=== PATIENT | female | born 2000 | race African-American/Black ===

== ENCOUNTER 2020-01-20 12:56 | Outpatient (RCR) | payer OTHER, SELFPAY ==
[2020-01-05 15:24] VITALS: BP 105/59; PULSE 110
[2020-01-05 17:23] VITALS: BP 103/63; PULSE 107
--- NOTE | 2020-01-05 18:00 | PC.NURSE ---
BPP 06/04. Dr. Elam gave order to D/C home if BPP 06/04.
--- NOTE | ~2020-01-20 | US_ITS ---
EXAMINATION: US OB BPP wo non-stress EXAM DATE: 01/05/2020 17:57 INDICATION: Nonreactive stress test. Third trimester. TECHNIQUE: Pelvic obstetrical transabdominal sonogram was performed by a technologist. There are mu ltiple grayscale and Doppler images available for interpretation. Comparison is made to prior examina tion from 09/08/2019. FINDINGS: There is a single fetus identified in vertex presentation with a heart rate of 125 beats pe r minute. The placenta is located in the anterior position. There is no sonographic evidence of retr oplacental hemorrhage identified. BIOPHYSICAL PROFILE (performed by the technologist) breathing (30 sec sustained breathing in 30 minutes): 2 out of 2 movement (3 gross body movements in 30 minutes): 2 out of 2 tone (one episode of dcdafil-yrwbrxmfj-bczusek limb movement): 2 out of 2 Amniotic fluid pocket (2 cm): 2 out of 2 Total score: 8 out of 8 IMPRESSION: 1. Single fetus with heart rate of 125 bpm. 2. Normal biophysical profile score of 8 out of 8. Reviewed, dictated and finalized at location A.
--- NOTE | ~2020-01-20 | US_ITS ---
EXAMINATION: US OB BPP wo non-stress DATE: 01/20/2020 13:48 INDICATION: Gestational diabetes, third trimester TECHNIQUE: Real-time pelvic ultrasound was performed. The interpreting radiologist was not present fo r the study. COMPARISON: 01/05/2020 FINDINGS: There is a single living fetus in vertex presentation. The placenta is anterior. heart rate is 133 beats per minute (bpm). Biophysical profile performed by the technologist: breathing (30 sec sustained breathing in 30 minutes): 2 out of 2 movement (3 gross body movements in 30 minutes): 2 out of 2 tone (one episode of ghpafqy-fhyrlcxdr-jonbolc limb movement): 2 out of 2 Amniotic fluid pocket (2 cm): 2 out of 2 Total score: 8 out of 8 IMPRESSION: 1. Single living fetus in vertex presentation. 2. Biophysical profile 8 out of 8. Reviewed, dictated and finalized at location B.
[2020-01-20 13:56] VITALS: BP 108/61; PULSE 102
== END 2020-02-04 07:39 | disposition home or self-care (01) ==
LOC: ANHOBOP 12:56
PROVIDERS: Visit Provider Obstetrics & Gynecology
DX: O24.419 Gestational diabetes mellitus in pregnancy, unspecified control (principal); Z3A.34 34 weeks gestation of pregnancy; Z3A.36 36 weeks gestation of pregnancy
CPT/HCPCS: 59025; 76819

== ENCOUNTER 2020-02-03 06:15 | Inpatient (IN) | payer OTHER, SELFPAY ==
[2020-02-03] VITALS (65 sets, daily range): BP systolic 99–121; BP diastolic 50–86; PULSE 68–104; RESP 16; TEMP 36.2–36.9; O2SAT 96–100; BMI 26.1
[2020-02-03 07:08] LABS: Basophils Absolute Auto 0.1 K/mm3 (0.0-0.1); Basophils Percent Auto 0.4 % (0.2-1.2); Eosinophils Absolute Auto 0.1 K/mm3 (0-0.3); Eosinophils Percent Auto 1.2 % (0-4.4); Hematocrit 34.3 % (37.0-47.0); Hemoglobin 11.1 g/dL (12.0-15.0); Immature Granulocyte Percent A 3.4 % (0-0.5); Lymphocytes Absolute Auto 2.12 K/mm3 (0.9-3.2); Lymphocytes Percent Auto 17.8 % (18.3-44.2); Mean Corpuscular HGB Conc 32.4 g/dl (32-36); Mean Corpuscular Hemoglobin 28.5 pg (26-34); Mean Corpuscular Volume 88.2 fl (80-100); Mean Platelet Volume 9.9 fl (7.4-10.4); Monocytes Absolute Auto 1.6 K/mm3 (0.1-0.6); Monocytes Percent Auto 13.2 % (2.6-8.5); Neutrophils Absolute Auto 7.7 K/mm3 (1.3-6.7); Platelet Count Result 264 k/mm3 (150-375); Red Blood Count 3.89 M/mm3 (4.2-5.4); Red Cell Distribution Width 13.8 % (11.5-14.5); White Blood Count 11.9 K/mm3 (4.5-10.0)
[2020-02-03 07:08] LABS: Glucose Point of Care 90 (65-105)
[2020-02-03] MEDS: LACTATED RINGERS 1,000 ML 125 ML IV CONT ×2 (07:11→11:39)
[2020-02-03] MEDS: OXYTOCIN 30 UNITS/NS 500 ML 30 UNITS/500 ML BAG 125 UNITS IV CONT ×2 (07:12→16:27)
--- NOTE | 2020-02-03 07:27 | P.HP_ITS ---
Obstetrics - Admit Note Admission Note: record reviewed. No pertinent additions to the history and/or any subsequent changes in the physical findings that are not consistent with the expected course of the were found.MIL, GDM diet controlled, cervix 2-3 outer funnels to FT, attempted but unsuccessful AROM, continue pitoc in Additions to the history and/or subsequent changes in the physical findings follow. None.
[2020-02-03] MEDS: AMPICILLIN 2 GM/NS 100 ML 2 GM/100 ML BAG IVPB (07:47)
[2020-02-03 08:02] LABS: HIV 1/2 Ab P24 Ag Result Negative (Negative)
[2020-02-03 11:27] LABS: Rapid Plasma Reagin Non-Reactive (NonReactive)
[2020-02-03] MEDS: AMPICILLIN 1 GM/NS 50 ML 1 GM/50 ML BAG IVPB (11:38)
--- NOTE | 2020-02-03 12:11 | WPDANESEPPF ---
Anes - Initial Pre Proc Eval Date/Time: 02/03/20 12:11 Surgeon: Annette Mcginnis MD Pre Op Diagnosis: Induciton of Labor Patient Data Age: 20 Gender: F Height: 5 ft 4 in Weight: 69 kg Last Vital Signs Temp 36.3 C L 02/03/20 08:00 Pulse 84 02/03/20 12:09 BP 106/62 02/03/20 12:09 Pulse Ox 98 02/03/20 12:08 Allergies Allergy/AdvReac Type Severity Reaction Status Date / Time terbutaline Allergy Rash Verified 01/25/20 15:30 Home Medications Medication Instructions Recorded Confirmed Type ferrous sulfate 325 mg (65 mg 325 mg PO DAILY #90 tablet 12/10/19 01/20/20 Rx iron) tablet,delayed release blood sugar diagnostic #100 each 12/31/19 12/31/19 Rx blood-glucose meter #1 each 12/31/19 12/31/19 Rx lancets 32 gauge #100 each 12/31/19 12/31/19 Rx pediatric puldiwvl-ytid-zgj 2 tablet PO DAILY 01/20/20 01/20/20 History [Flintstones Complete (iron)] Laboratory Tests 02/03/20 02/03/20 02/03/20 07:00 07:00 07:00 WBC 11.9 K/mm3 H K/mm3 (4.5-10.0) RBC 3.89 M/mm3 L M/mm3 (4.2-5.4) Hgb 11.1 g/dL L g/dL (12.0-15.0) Hct 34.3 % L % (37.0-47.0) MCV 88.2 fl fl (80-100) MCH 28.5 pg pg (26-34) MCHC 32.4 g/dl g/dl (32-36) RDW 13.8 % % (11.5-14.5) Plt Count 264 k/mm3 k/mm3 (150-375) MPV 9.9 fl fl (7.4-10.4) Immature Gran % (Auto) 3.4 % H % (0-0.5) Neut % (Auto) 64.0 % % (45.5-73.1) Lymph % (Auto) 17.8 % L % (18.3-44.2) [place] % (Auto) 13.2 % H % (2.6-8.5) Eos % (Auto) 1.2 % % (0-4.4) Baso % (Auto) 0.4 % % (0.2-1.2) Lymph # (Auto) 2.12 K/mm3 K/mm3 (0.9-3.2) [place] # (Auto) 1.6 K/mm3 H K/mm3 (0.1-0.6) Eos # (Auto) 0.1 K/mm3 K/mm3 (0-0.3) Baso # (Auto) 0.1 K/mm3 K/mm3 (0.0-0.1) Abs Immat Gran (auto) 0.40 K/mm3 H K/mm3 (0.00-0.031) Absolute Neuts (auto) 7.7 K/mm3 H K/mm3 (1.3-6.7) Absolute Nucleated RBC 0.0 K/mm3 K/mm3 (0.0-0.012) Nucleated RBC % 0.0 % % (0.0-0.2) POC Capillary Glucose RPR Non-reactive (NonReactive) HIV 1&2 Ab/P24 Ag 4thGn Negative (Negative) Blood Type Antibody Screen 02/03/20 02/03/20 07:00 07:03 WBC RBC Hgb Hct MCV MCH MCHC RDW Plt Count MPV Immature Gran % (Auto) Neut % (Auto) Lymph % (Auto) [place] % (Auto) Eos % (Auto) Baso % (Auto) Lymph # (Auto) [place] # (Auto) Eos # (Auto) Baso # (Auto) Abs Immat Gran (auto) Absolute Neuts (auto) Absolute Nucleated RBC Nucleated RBC % POC Capillary Glucose 90 mg/dl mg/dl (65-105) RPR HIV 1&2 Ab/P24 Ag 4thGn Blood Type B Positive Antibody Screen Negative Patient hx anesthesia problems: none Family hx anesthesia problems: none PMFSH Past Medical History Medical History Anxiety Depression Encounter for supervision of normal in multigravida in second trimester related condition in second trimester Viral meningitis Family History Family History Grandparent Diabetes mellitus Social History Social History Smoking status: Never smoker Smoking end date: 10/28/16 Alcohol intake: never Substance use: former Substance use type: marijuana Spiritual care concerns: No Anes - Eval Final PreProcedure Day of Procedure 02/03/20 12:11 Patient weight: overweight Heart: regular rate and rhythm Lungs: clear to auscultation Neurological: al
--- NOTE | 2020-02-03 12:26 | PM.OBPNVD ---
OB - PN: Subj Subjective Date/time seen: 02/03/20 12:26 OB - PN: Obj Data Labs CBC & Chem 7: 02/03/20 07:00 Labs: Laboratory Results - last 24 hr 02/03/20 02/03/20 02/03/20 07:00 07:00 07:00 WBC 11.9 H RBC 3.89 L Hgb 11.1 L Hct 34.3 L MCV 88.2 MCH 28.5 MCHC 32.4 RDW 13.8 Plt Count 264 MPV 9.9 Immature Gran % (Auto) 3.4 H Neut % (Auto) 64.0 Lymph % (Auto) 17.8 L [place] % (Auto) 13.2 H Eos % (Auto) 1.2 Baso % (Auto) 0.4 Lymph # (Auto) 2.12 [place] # (Auto) 1.6 H Eos # (Auto) 0.1 Baso # (Auto) 0.1 Abs Immat Gran (auto) 0.40 H Absolute Neuts (auto) 7.7 H Absolute Nucleated RBC 0.0 Nucleated RBC % 0.0 POC Capillary Glucose RPR Non-reactive HIV 1&2 Ab/P24 Ag 4thGn Negative Blood Type Antibody Screen 02/03/20 02/03/20 07:00 07:03 WBC RBC Hgb Hct MCV MCH MCHC RDW Plt Count MPV Immature Gran % (Auto) Neut % (Auto) Lymph % (Auto) [place] % (Auto) Eos % (Auto) Baso % (Auto) Lymph # (Auto) [place] # (Auto) Eos # (Auto) Baso # (Auto) Abs Immat Gran (auto) Absolute Neuts (auto) Absolute Nucleated RBC Nucleated RBC % POC Capillary Glucose 90 RPR HIV 1&2 Ab/P24 Ag 4thGn Blood Type B Positive Antibody Screen Negative OB - PN A/P Time Spent With Patient Time: Total time spent is greater than 50% in coordination of care (as documented) at patient's floor/unit and/or counseling patient: Exam Const: General: comfortable Resp: Effort & Inspection: normal respiratory effort : Other: SVE 4-5/70/-2 large amount of odorless fluid noted, IUPC placed Psych: Appearance: grossly normal
[2020-02-03 12:40] LABS: Glucose Point of Care 70 (65-105)
[2020-02-03] MEDS: ONDANSETRON INJ 4 MG/2 ML VIAL IV PUSH (13:00)
--- NOTE | 2020-02-03 16:01 | PM.OBPRVD ---
OB - Delivery Note Procedure Delivery date: 02/03/20 Procedure: vaginal delivery events: Gestational Diabetes Intrapartal events: None Induction method: AROM and per pitocin protocol Delivery monitor: external FHT and internal uterine Route of delivery: Laceration description: Perineal - 1st Degree Delivery repair: vicryl Specimen: Yes Estimated blood loss (mL): 115 Anesthesia type: Epidural Disposition: other () Baby Date of : 02/03/20 Time of : 15:50 Weeks of gestation at delivery: 39 gender: Female Weight (pounds): 7 Weight (ounces): 3 presentation: vertex position: Left Occiput Anterior Placenta delivery description: Spontaneous cord vessel description: 3 Vessels, Nuchal Cord and Clamped/Cut score one minute: 9 score five minutes: 9
[2020-02-03] MEDS: IBUPROFEN 600 MG TABLET PO (17:54)
[2020-02-03] MEDS: WITCH HAZEL 40 PADS 1 PAD TOPICAL (18:19)
[2020-02-03] MEDS: BENZOCAINE 20% AER SPR (*SP) 56 GM CAN 1 SPRAY TOPICAL (18:20)
[2020-02-03 22:44] LABS: Glucose Point of Care 105 (65-105)
--- NOTE | 2020-02-04 03:11 | OBPPTRN ---
Addendum entered by Judit Miranda RN 02/04/20 03:12: Pt transferred to 02/03/20 at 1845. Original Note: Patient transferred to post room #290 via wheelchair. Support person (Pt's mom), went home for the evening to take care of patient's 2 year old child. Oriented to unit, room, information board, rooming in, admission packet and security measures. Patient verbalizes understanding. with patient.
[2020-02-04] MEDS: IBUPROFEN 600 MG TABLET PO ×2 (04:25→12:08)
[2020-02-04 05:33] LABS: Amphetamine Screen Urine Negative (Negative); Barbiturate Screen Urine Negative (Negative); Benzodiazepines Screen Urine Negative (Negative); Cannabinoid Screen Urine Negative (Negative); Cocaine Screen Urine Negative (Negative); Methadone Screen Urine Negative (Negative); Opiate Screen Urine Negative (Negative); Phencyclidine Screen Urine Negative (Negative)
[2020-02-04 05:43] LABS: Hematocrit 32.7 % (37.0-47.0); Hemoglobin 10.4 g/dL (12.0-15.0)
--- NOTE | 2020-02-04 07:36 | P.PNOB_ITS ---
OB - PN: Subj Subjective Date/time seen: 02/04/20 07:36 Patient comments: no complaints, pain well controlled and other (Lochia similar to menses) [place] baby status: doing well OB - PN: Obj Data Labs CBC & Chem 7: 02/04/20 04:28 Labs: Laboratory Results - last 24 hr 02/03/20 02/03/20 02/03/20 07:00 07:00 07:00 Hgb Hct POC Capillary Glucose Urine Opiates Screen Urine Methadone Screen Ur Barbiturates Screen Ur Phencyclidine Scrn Ur Amphetamine Screen U Benzodiazepines Scrn Urine Cocaine Screen U Cannabinoids Screen RPR Non-reactive HIV 1&2 Ab/P24 Ag 4thGn Negative Blood Type B Positive Antibody Screen Negative 02/03/20 02/03/20 02/04/20 11:47 22:41 04:28 Hgb 10.4 L Hct 32.7 L POC Capillary Glucose 70 105 Urine Opiates Screen Urine Methadone Screen Ur Barbiturates Screen Ur Phencyclidine Scrn Ur Amphetamine Screen U Benzodiazepines Scrn Urine Cocaine Screen U Cannabinoids Screen RPR HIV 1&2 Ab/P24 Ag 4thGn Blood Type Antibody Screen 02/04/20 05:11 Hgb Hct POC Capillary Glucose Urine Opiates Screen Negative Urine Methadone Screen Negative Ur Barbiturates Screen Negative Ur Phencyclidine Scrn Negative Ur Amphetamine Screen Negative U Benzodiazepines Scrn Negative Urine Cocaine Screen Negative U Cannabinoids Screen Negative RPR HIV 1&2 Ab/P24 Ag 4thGn Blood Type Antibody Screen OB - PN A/P Plan day: 1 (s/p vaginal delivery, doing well) Plan: routine care and discharge home (Follow up in 4 weeks) Time Spent With Patient Time: Total time spent is greater than 50% in coordination of care (as documented) at patient's floor/unit and/or counseling patient: Exam Const: General: no acute distress GI: Inspection: other (Fundus firm and nontender at umbilicus) GI Palp: Yes Soft to palpation and No Tenderness to palpation present (GI) Extrem: General: no edema
[2020-02-04 08:00] VITALS: BP 100/60; PULSE 61; RESP 18; TEMP 36.9
--- NOTE | 2020-02-06 13:53 | PM.OBDSVD ---
OB - DS: Summary OB Procedures : None OB Procedures Intrapartum: Spontaneous Vag Delivery OB Procedures: : None Time Spent with Patient Time attestation: Total time spent providing and/or coordinating discharge services: DS: Data Data Completed and Pending Pending studies at discharge: Pending at discharge 02/03/20 16:37 Surgical [PTH] Routine Discharge Plan Discharge Consulting providers: Anju Mcnamara ; Marcus Saleh Discharging Clinician: Ashlie Coronado Patient Disposition: Home, Self-Care Activity: may shower, may drive after 2 weeks, pelvic rest and other - see discharge instructions Diet: regular Discharge Instructions: Education: Mom and Baby Guide Given to: Mother Follow-Up: Call your delivering provider's office for an appointment to be seen in: Call your physician to schedule a follow up appointment Mom and baby should come to the [facility] for the follow-up appointment. Appointment Date/Time: February 05, 2020 at 10:00 am What to expect at your follow-up visit: Blood Pressure Check and Physical Assessment Call [phone] if you are unable to keep your appointment time. BREAST CARE: 1. Wear a snug supportive bra. 2. For engorgement discomfort: Bottle Feeding: A. May apply ice packs EPISIOTOMY/PERINEAL CARE: 1. Until bleeding stops, use your deisy bottle after urinating 2. Change your pad frequently throughout the day 3. You may take sitz baths several times a day (fill your bathtub with warm water and soak for 20 minutes.) Do NOT bathe in the water 4. No tub baths until seen by your physician - You may shower ACTIVITY: 1. Rest as much as possible. 2. Do not exercise or lift anything heavier than your baby (such as laundry or other children.) 3. Avoid stairs or driving as much as possible. 4. Do not put anything into the vagina. No douching, tampons, or sexual activity until seen by physician. NOTIFY PHYSICIAN IF YOU HAVE ANY QUESTIONS OR IF ANY OF THE FOLLOWING SYMPTOMS OCCUR: 1. If your episiotomy becomes red, swollen, or more painful than what you have experienced in the hospital. 2. If your vaginal bleeding becomes foul smelling. 3. If your vaginal bleeding becomes more heavy than a period or if your bleeding changes from pink to bright red. However, you may pass an occasional walnut-sized clot once or twice for the first week . 4. If you experience a sharp, shooting pain in you calves. 5. If you discover a hard, reddened area on your breast or if you experience flu-like symptoms. DIET: 1. Eat regular, well-balanced meals. 2. Drink plenty of fluids daily. Patient Instructions: Antibiotic Form Stand Alone Forms: General Discharge Information Follow-up/Referrals: Ashlie Coronado MD [Physician] - 6 Weeks Discharge Medications: New ibuprofen 600 mg Tablet 600 mg PO Q6H PRN (Reason: Cramping) Qty: 60 RF: 0 escitalopram oxalate [Lexapro] 10 mg Tablet 10 mg PO DAILY Qty: 30 RF: 0 Continued ferrous sulfate 325 mg (65 mg iron) tablet,delayed release (DR/EC) 325 mg PO DAILY Qty: 90 RF: 0 Flintstones Complete (iron) Tablet,Chewable 2 tablet PO DAILY RF: 0 No Action (DME) blood-glucose meter Kit See Rx Instructions .ROUTE .MEDSUPPLY Qty: 1 RF: 0 (DME) blood sugar diagnostic [Blood Glucose Test] Strip See Rx Instructions .ROUTE .MEDSUPPLY Qty: 100 RF: 0 (DME) lancets 32 gauge misc See Rx Instructions .ROUTE .MEDSUPPLY Qty: 100 RF: 0 Date of admission: 02/03/20 06:15 Primary Care Provider: UNKNOWN,DOCTOR Admitting Provider: Annette Mcginnis Discharge Date/Time: 02/04/20 17:00 Attending physician on admission: Ashlie Coronado
== END 2020-02-04 17:00 | disposition home or self-care (01) | DRG 560 ==
LOC: ANHLDR 06:47 → ANHOB2 02-04 13:10 → ANHLDR 02-05 13:08 → ANHOB2 02-05 13:08
PROVIDERS: Advanced Practice Midwife; Admitting Provider Obstetrics & Gynecology; Visit Provider Obstetrics & Gynecology
DX: O24.420 Gestational diabetes mellitus in childbirth, diet controlled (principal); Z37.0 Single live birth; Z3A.39 39 weeks gestation of pregnancy; O99.824 Streptococcus B carrier state complicating childbirth; O99.344 Other mental disorders complicating childbirth; F41.8 Other specified anxiety disorders; O70.0 First degree perineal laceration during delivery
CPT/HCPCS: 36415; 80307; 85014; 85018; 85025; 86592; 86703; 86850; 86900; 86901; 88307; A9270; G0432; J0290; J2405; J2590; J2795; J3010; J7120

== ENCOUNTER 2020-05-07 15:11 | Emergency (ER) | payer OTHER, SELFPAY ==
--- NOTE | 2020-05-07 16:08 | PC.NURSE ---
Patient called for Triage at this time. No answer. Patient not in waiting room.
--- NOTE | 2020-05-07 16:30 | PC.NURSE ---
Called patient for triage, no answer. Patient not in the ED waiting room.
--- NOTE | 2020-05-07 17:25 | PC.NURSE ---
Third call for triage. No answer. Patient is not in the ED waiting room.
== END 2020-05-07 17:25 | disposition left against medical advice (07) ==
LOC: ANHED 17:34
DX: Z53.21 Procedure and treatment not carried out due to patient leaving prior to being seen by health care provider (principal)
CPT/HCPCS: 99199

== ENCOUNTER 2020-09-17 22:47 | Emergency (ER) | payer OTHER, SELFPAY ==
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
[2020-09-17 23:00] VITALS: BP 120/89; PULSE 110; RESP 22; TEMP 36.6; O2SAT 95
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
[2020-09-18] MEDS: HYDROcodone/acetaminophen (*CRX) 5-325 MG TABLET 1 TAB PO (00:06)
[2020-09-18 03:29] VITALS: BP 120/82; PULSE 92; RESP 18; O2SAT 100
== END 2020-09-18 03:31 | disposition home or self-care (01) ==
PROVIDERS: Emergency Provider Emergency Medicine
DX: S90.01XA Contusion of right ankle, initial encounter (principal); V43.62XA Car passenger injured in collision with other type car in traffic accident, initial encounter
CPT/HCPCS: 29515; 73562; 73600; 73700; 99284; A9270

== ENCOUNTER 2021-02-04 17:50 | Emergency (ER) | payer OTHER, SELFPAY ==
--- NOTE | 2021-02-04 18:46 | PC.NURSE ---
Call in waiting room, no answer.
[2021-02-04 18:49] VITALS: BP 119/73; PULSE 74; RESP 18; TEMP 36.4; O2SAT 99
[2021-02-04 19:10] VITALS: BP 117/76; PULSE 80; RESP 18; TEMP 37.1; O2SAT 100
[2021-02-04 19:16] LABS: Add Urine Microscopic? YES; Appearance Urine Cloudy (Clear); Bilirubin Urine Negative (Negative); Blood Urine Negative (Negative); Color Urine Yellow (Yellow); Glucose Urine UA Negative (Negative); Ketones Urine Negative (Negative); Leukocyte Esterase Ur Negative LEU/UL (Negative); Mucus Urine Rare /lpf; Nitrate Urine Negative (Negative); Protein Urine 1+ mg/dL (Negative); RBC Urine 0-2 /hpf (0-2); Specific Grav Ur 1.027 (1.001-1.035); Squamous Epithelial Cell Urine Few /hpf (Few); Urobilinogen Urine Negative mg/dL (<2.0); WBC Urine 0-3 /hpf
--- NOTE | 2021-02-04 19:44 | ED.GENADULT ---
HPI - General Adult General Chief complaint: Urogenital-Female Stated complaint: vagina problems Time Seen by Provider: 02/04/21 19:07 History of Present Illness HPI narrative: Patient is a 21-year-old female who comes to the ED today with concerns for vaginal discharge and lower abdominal pain. Patient reports that the symptoms initially started about 2 weeks ago but is been worsening over the last 1 week. Denies any urinary symptoms. Says the discharge is a fishy odor. Admits to nausea without any vomiting. Otherwise denies any fevers or any other symptoms or concerns. No previous history of similar symptoms. No known STD exposure but says it is possible. Last menstrual period was January 04. Related Data Home Medications Medication Instructions Recorded Confirmed [facility] [employer] [facility] 02/04/21 Allergies Allergy/AdvReac Type Severity Reaction Status Date / Time terbutaline Allergy Rash Verified 02/04/21 19:18 Review of Systems Constitutional: Constitutional: Reports as per HPI, Denies fever(s), Denies night sweats and Denies weakness Cardiovascular: Cardiovascular: Denies chest pain, Denies edema, Denies leg edema, Denies dyspnea and Denies orthopnea Respiratory: Respiratory: Denies cough and Denies dyspnea Gastrointestinal: Gastrointestinal: Reports as per HPI, Reports abdominal pain, Denies constipation, Denies diarrhea, Reports nausea and Denies vomiting Genitourinary: Genitourinary: Reports as per HPI Musculoskeletal: Musculoskeletal: Denies abnormal gait, Denies back pain, Denies numbness and Denies tingling Neurologic: Denies Abnormal speech present, Denies abnormal gait, Denies numbness, Denies tingling and Denies weakness Psychiatric: Psychiatric: Denies homicidal ideation and Denies suicidal ideation [facility] Past Medical History Medical History (Updated 02/04/21 @ 21:18 by Dimitri Peguero PA-C) Anxiety Depression Encounter for supervision of normal in multigravida in second trimester related condition in second trimester Viral meningitis Family History Family History Grandparent Diabetes mellitus Social History Social History Smoking status: Never smoker Smoking end date: 10/28/16 Alcohol intake: never Substance use: former Substance use type: marijuana Gender identity (if verbalized by the patient): Female Spiritual care concerns: No Exam Const: General: cooperative, healthy appearing, comfortable, no acute distress, well developed, alert, awake and Physically active Orientation/consciousness: patient oriented x3 Other: Pleasant, well-appearing HENMT: Head: normal to inspection, normocephalic and atraumatic Ears: external ears normal General nose exam: Normal external nose present Eyes: Pupils: Equal, round and reactive pupils present EOM: EOMs intact bilaterally Neck: Neck: normal visual inspection Chest: Chest palpation & inspection: normal inspection of the chest and no tenderness Resp: Effort & Inspection: normal respiratory effort and able to speak in complete sentences Auscultation: clear to auscultation bilaterally Cardio: Rate: regular rate Rhythm: regular rhythm GI: Inspection: normal to inspection GI Palp: Yes abdominal tenderness (Tender to palpation over suprapubic and left lower quadrant) Other: Normal external vagina. Cervix is friable with thick purulent discharge. Mild cervical motion tenderness, left-sided adnexal tenderness no right adnexal tenderness. Chaperoned by medic. : General: Yes no CVA tenderness External Female Exam: normal external appearance Speculum Exam - Cervix: Abnormal cervical discharge present and Other cervical findings present (Cervix is friable. Thick purulent discharge.) Back/Spine/Pelvis: Back: no CVA tenderness Skin: General skin exam: normal color and no rashes or lesions not
--- NOTE | 2021-02-04 20:00 | PC.NURSE ---
Patient tells this RN that she needs to leave the ED to draft roller picker her child. She was notified that she has not been discharged and is still waiting for results of her tests. Patient reports that she understands this and tells me that she is leaving at this time. EDPA notified that this patient left the ED AMA.
== END 2021-02-04 20:00 | disposition left against medical advice (07) ==
PROVIDERS: Emergency Medicine; Physician Assistant Medical; Emergency Provider Emergency Medicine
DX: N73.0 Acute parametritis and pelvic cellulitis (principal); A59.00 Urogenital trichomoniasis, unspecified
CPT/HCPCS: 81001; 81025; 87070; 87491; 87591; 87808; 99284

== ENCOUNTER 2021-02-14 13:17 | Emergency (ER) | payer OTHER, SELFPAY ==
--- NOTE | 2021-02-14 13:38 | ED.EAR ---
HPI - Ear Problem General Chief complaint: Ear Stated complaint: left ear pain Time Seen by Provider: 02/14/21 13:56 Source: patient and RN notes reviewed Mode of arrival: ambulatory Limitations: no limitations History of Present Illness HPI Narrative: 21-year-old female presents concern for left ear pain and yellow discharge that started yesterday. She denies rhinorrhea, nasal congestion, sore throat, fever, headache, cough, shortness of breath. Reports she was seen in the emergency room 10 days ago and tested positive for an STD, however she left left ER AGAINST MEDICAL ADVICE before being discharged because she had to get her kids and did not receive her treatment for the STD. Complaint: ear pain Related Data Allergies Allergy/AdvReac Type Severity Reaction Status Date / Time terbutaline Allergy Rash Verified 02/14/21 13:43 Review of Systems Review of Systems: Narrative: CONSTITUTIONAL: Denies malaise, chills, sweats, or fever. EYES: Denies visual changes, redness, or discharge. ENT: Denies rhinorrhea, congestion, sinus pain, and sore throat. Reports left ear pain, drainage CARDIOVASCULAR: Denies chest pain, palpitations, or edema. RESPIRATORY: Denies cough or dyspnea. GASTROINTESTINAL: Denies abdominal pain, nausea, vomiting, diarrhea SKIN: Denies rash or itching. MUSCULOSKELETAL: Denies myalgia. NEUROLOGIC: Denies headache. All systems reviewed & are unremarkable except as noted in HPI and below PMFSH Past Medical History Medical History (Updated 02/14/21 @ 14:11 by Jazmine Samano NP) Anxiety Depression Encounter for supervision of normal in multigravida in second trimester related condition in second trimester Viral meningitis Family History Family History Grandparent Diabetes mellitus Social History Social History Smoking status: Never smoker Smoking end date: 10/28/16 Alcohol intake: never Substance use: former Substance use type: marijuana Gender identity (if verbalized by the patient): Female Spiritual care concerns: No Comments At time of signature, agree with nursing past medical, surgical, social and family history. There is no relevant family history pertinent to the presenting complaint Exam Narrative: Exam Narrative: GENERAL: Well-appearing, well-nourished, and in no acute distress. HEAD: Normocephalic EYES: PERRLA, conjunctivae clear ENT: Nares clear, turbinates pink, no discharge. Mucous membranes moist. Right TM pearly davis with dull light reflex, left TM erythematous and bulging; no tragal tenderness. Oropharynx not erythematous without lesions. Tonsils not enlarged and without exudate, no drooling, no hoarseness, no trismus, uvula midline. NECK: Supple. No lymphadenopathy CHEST: Clear to auscultation, breath sounds equal. No wheezing, rhonchi, rales, or stridor. No respiratory distress, speaks in full sentences. HEART: Regular rate and rhythm. No murmur heard. SKIN: Warm, dry, no rash. NEURO: Alert and oriented x3. PSYCH: Normal mood and affect Course Course Emergency Course: Patient is aware of diagnosis, understands and agrees to treatment plan. Anticipatory guidance given. Patient agrees to follow-up as directed and is aware of reasons to seek care at the emergency department. Portions of this record may have been created with voice recognition software Vital Signs Vital signs: Vital Signs Temperature 96.8 F L 02/14/21 13:40 Pulse Rate 84 02/14/21 13:40 Respiratory Rate 16 02/14/21 13:40 Blood Pressure 103/86 02/14/21 13:40 Pulse Oximetry 99 02/14/21 13:40 Temperature 96.8 F L 02/14/21 13:40 Pulse Rate 84 02/14/21 13:40 Respiratory Rate 16 02/14/21 13:40 Blood Pressure 103/86 02/14/21 13:40 Pulse Oximetry 99 02/14/21 13:40 Reviewed. Medical Decision Making MDM Narrative Medical decision nicolas
[2021-02-14 13:40] VITALS: BP 103/86; PULSE 84; RESP 16; TEMP 36; O2SAT 99
== END 2021-02-14 14:13 | disposition home or self-care (01) ==
PROVIDERS: Emergency Provider Nurse Practitioner; PCP Nurse Practitioner Family
DX: H66.002 Acute suppurative otitis media without spontaneous rupture of ear drum, left ear (principal); A59.9 Trichomoniasis, unspecified
CPT/HCPCS: 99213; G0463

== ENCOUNTER 2021-03-18 21:46 | Emergency (ER) | payer OTHER, SELFPAY ==
[2021-03-18 22:03] VITALS: BP 100/79; PULSE 79; RESP 16; TEMP 36.1; O2SAT 95
--- NOTE | 2021-03-18 23:34 | ED.URI ---
HPI - URI/Sore Throat General Chief Complaint: Upper Respiratory Infection Stated Complaint: ST, congestion Time Seen by Provider: 03/18/21 22:28 History of Present Illness HPI Narrative: Patient is a 21-year-old female who presents ER with cough for 2 days. Associate with sinus congestion and some ear pressure. Reports sick contacts but unsure if they have Covid. Reports she needs Covid test because her mother has cancer and she has not been vaccinated (patient). No chest pain or chest pressure. Mild difficulty swallowing due to sore throat but no actual dysphagia. Related Data Allergies Allergy/AdvReac Type Severity Reaction Status Date / Time terbutaline Allergy Rash Verified 02/14/21 13:43 Review of Systems Constitutional: Constitutional: Denies chills, Denies fever(s) and Denies weakness ENT: Denies dysphagia, Reports nasal congestion and Reports sore throat Cardiovascular: Cardiovascular: Denies chest pain and Denies radiating jaw, neck or arm pain Respiratory: Respiratory: Reports cough, Denies dyspnea and Denies wheezing Gastrointestinal: Gastrointestinal: Denies nausea and Denies vomiting PMFSH Past Medical History Medical History (Updated 03/18/21 @ 23:37 by Arsalan Garay MD) Anxiety Depression Encounter for supervision of normal in multigravida in second trimester related condition in second trimester Viral meningitis Family History Family History Grandparent Diabetes mellitus Social History Social History Smoking status: Never smoker Smoking end date: 10/28/16 Alcohol intake: never Substance use: former Substance use type: marijuana Gender identity (if verbalized by the patient): Female Spiritual care concerns: No Exam Narrative: Exam Narrative: GENERAL: Well-appearing, well-nourished, and in no acute distress. HEAD: Normocephalic, atraumatic. ENT: Mucous membranes moist. TMs normal bilaterally. NECK: Supple. CHEST: Clear to auscultation. No respiratory distress. HEART: Regular rate and rhythm. Normal peripheral pulses. EXTREMITIES: Normal range of motion. No edema. NEURO: Alert and oriented x3. PSYCH: Normal mood and affect. Course Course Emergency Course: Patient swabbed for Covid. Discussed isolation. Patient verbalized understanding. Encourage patient to go get a Covid vaccine since she is eligible and they are free of [employer]. Vital Signs Vital signs: Vital Signs Temperature 97.0 F L 03/18/21 22:03 Pulse Rate 79 03/18/21 22:03 Respiratory Rate 16 03/18/21 22:03 Blood Pressure 100/79 03/18/21 22:03 Pulse Oximetry 95 03/18/21 22:03 Temperature 97.0 F L 03/18/21 22:03 Pulse Rate 79 03/18/21 22:03 Respiratory Rate 16 03/18/21 22:03 Blood Pressure 100/79 03/18/21 22:03 Pulse Oximetry 95 03/18/21 22:03 Discharge Plan Discharge Clinical Impression: Person under investigation for COVID-19 Patient Disposition: Home, Self-Care Condition: Stable Instructions: COVID-19 (Coronavirus Disease 2019) (ED) Additional Instructions: Self isolate until you receive a negative Covid results or you are cleared by the health department. Return the ER if you cannot breathe, you cannot keep down food or water, or you have additional concerns. Prescriptions: No Action metronidazole [Flagyl] 500 mg tablet 2,000 mg PO ONCE Qty: 4 RF: 0 cefdinir 300 mg capsule 300 mg PO Q12H 10 Days Qty: 20 RF: 0 fluticasone propionate [Flonase Allergy Relief] 50 mcg/actuation spray,suspension 2 spray NASAL DAILY 14 Days Qty: 15.8 RF: 0 metronidazole [Flagyl] 500 mg tablet 500 mg PO ONCE Qty: 1 RF: 0 Follow-up/Referrals: Panchito,EVERETT Cote [Primary Care Provider] - 1 Week
[2021-03-19 00:04] VITALS: BP 111/68; PULSE 68; RESP 18; O2SAT 99
[2021-03-21 13:08] LABS: SARS-CoV-2 RNA PCR Negative
== END 2021-03-19 00:04 | disposition home or self-care (01) ==
PROVIDERS: Emergency Provider Emergency Medicine; PCP Nurse Practitioner Family
DX: R05 Cough (principal); Z20.822 Contact with and (suspected) exposure to COVID-19
CPT/HCPCS: 99283; C9803; U0003; U0005

== ENCOUNTER 2021-06-02 07:19 | Emergency (ER) | payer OTHER, SELFPAY ==
[2021-06-02 07:42] VITALS: BP 99/73; PULSE 64; RESP 14; TEMP 37.1; O2SAT 99
--- NOTE | 2021-06-02 08:26 | ED.DENTAL ---
HPI - Dental/Oral General Chief complaint: Dental/Oral Stated complaint: cold symptoms Time Seen by Provider: 06/02/21 07:29 Source: RN notes reviewed History of Present Illness HPI Narrative: Patient presents emergency department from home for dental pain. Patient states for the past 2 days she had increasing pain in her right lower wisdom teeth region. States her wisdom teeth are coming through and they've been increasingly painful states she has been taking Tylenol at home intermittently for the pain with minimal relief she states that it time she does taste blood in her mouth she denies any swelling of the face she states she has not seen a dentist for the same she denies any fevers or chills Related Data Allergies Allergy/AdvReac Type Severity Reaction Status Date / Time terbutaline Allergy Rash Verified 02/14/21 13:43 Review of Systems Review of Systems: Gen.: Denies fevers or chills HEENT: See HPI Respiratory: Denies shortness of breath Neuro: Denies numbness, tingling, weakness Skin: Denies rash Endo: Denies DM PMFSH Past Medical History Medical History (Updated 06/02/21 @ 08:33 by Naldo Quigley DO) Anxiety Depression Encounter for supervision of normal in multigravida in second trimester related condition in second trimester Viral meningitis Family History Family History Grandparent Diabetes mellitus Social History Social History Smoking status: Never smoker Smoking end date: 10/28/16 Alcohol intake: never Substance use: former Substance use type: marijuana Gender identity (if verbalized by the patient): Female Spiritual care concerns: No Exam Narrative: APPEARANCE: No acute distress, nontoxic, resting in bed HEENT: Normocephalic, atraumatic, TMs clear bilaterally, nares patent, oral mucosa moist, airway patent, tooth #32 is starting to come through the gumline with some erythema of the gum there is no swelling on the outside of the jaw in this region RESPIRATORY: No respiratory distress MUSCULOSKELETAl: Moves all extremities. NEURO: Awake and alert. Following commands, speech normal, no focal deficits SKIN:: Warm, dry. Normal Color PSYCHIATRIC: Normal affect/mood Course Course Emergency Course: Discussed with patient results of workup and diagnosis. Discussed need for follow-up with primary care, proper use of medication, and reasons to return to the emergency department. Patient understands and agrees to current treatment plan Vital Signs Vital signs: Vital Signs Temperature 98.7 F 06/02/21 07:42 Pulse Rate 64 06/02/21 07:42 Respiratory Rate 14 06/02/21 07:42 Blood Pressure 99/73 L 06/02/21 07:42 Pulse Oximetry 99 06/02/21 07:42 Temperature 98.7 F 06/02/21 07:42 Pulse Rate 64 06/02/21 07:42 Respiratory Rate 14 06/02/21 07:42 Blood Pressure 99/73 L 06/02/21 07:42 Pulse Oximetry 99 06/02/21 07:42 MDM - Dental/Oral Lab Data Labs: UCG Bedside Result Negative Reference Range: Negative Discharge Plan Discharge Clinical Impression: Odontalgia Patient Disposition: Home, Self-Care Condition: Stable Instructions: Antibiotic Form, Toothache (ED) Additional Instructions: Return for increasing pain fever or any other symptoms of concern Prescriptions: New penicillin V potassium 500 mg tablet 500 mg PO TID Qty: 30 RF: 0 ibuprofen [IBU] 600 mg tablet 600 mg PO Q6H PRN (Reason: pain) Qty: 20 RF: 0 No Action metronidazole [Flagyl] 500 mg tablet 2,000 mg PO ONCE Qty: 4 RF: 0 cefdinir 300 mg capsule 300 mg PO Q12H 10 Days Qty: 20 RF: 0 fluticasone propionate [Flonase Allergy Relief] 50 mcg/actuation spray,suspension 2 spray NASAL DAILY 14 Days Qty: 15.8 RF: 0 metronidazole [Flagyl] 500 mg tablet
[2021-06-02] MEDS: HYDROcodone/acetaminophen (*CRX) 5-325 MG TABLET 1 TAB PO (08:50)
[2021-06-02] MEDS: PENICILLIN V POTASSIUM 250 MG TABLET 500 MG PO (08:51)
[2021-06-02 09:11] VITALS: PULSE 70; RESP 12; O2SAT 99
== END 2021-06-02 09:12 | disposition home or self-care (01) ==
PROVIDERS: Emergency Provider Emergency Medicine; PCP Nurse Practitioner Family
DX: K08.89 Other specified disorders of teeth and supporting structures (principal)
CPT/HCPCS: 81025; 99283; A9270

== ENCOUNTER 2021-06-09 16:20 | Emergency (ER) | payer OTHER, SELFPAY ==
--- NOTE | 2021-06-09 16:29 | ED.DENTAL ---
HPI - Dental/Oral General Chief complaint: Dental/Oral Stated complaint: tooth ache Time Seen by Provider: 06/09/21 16:29 Source: patient Mode of arrival: ambulatory Limitations: no limitations History of Present Illness HPI Narrative: 21-year-old female presents to the [facility] with complaints of dental pain. Was seen on the sixth in the ER for same complaint. Was prescribed ibuprofen and penicillin. Patient states that her penicillin went down the drain. Was unable to finish. Had not made appointment for follow-up. Related Data Allergies Allergy/AdvReac Type Severity Reaction Status Date / Time terbutaline Allergy Rash Verified 06/09/21 16:27 Review of Systems Review of Systems: All systems reviewed & are unremarkable except as noted in HPI and below Constitutional: Constitutional: Reports no additional constitutional complaints, Denies chills and Denies fever(s) Eyes: Eyes: Reports no additional eye complaints ENT: Reports as per HPI Comments: Right lower dental Cardiovascular: Cardiovascular: Reports no additional cardiovascular complaints and Denies chest pain Respiratory: Respiratory: Reports no additional respiratory complaints, Denies cough and Denies dyspnea Gastrointestinal: Gastrointestinal: Reports no additional gastrointestinal complaints Genitourinary: Genitourinary: Reports no additional female genitourinary complaints Musculoskeletal: Musculoskeletal: Reports no additional musculoskeletal complaints Integumentary/Breasts: Skin/Breast: Reports system reviewed and no additional complaints, except as docu Neurologic: Reports system reviewed and no additional complaints, except as documented Psychiatric: Psychiatric: Reports no additional psychiatric complaints Allergic/Immunologic: Allergic/Immunologic: Reports no additional allergic/immunologic complaints [facility] Past Medical History Medical History (Updated 06/09/21 @ 16:38 by Jazmine Zepeda) Anxiety Depression Encounter for supervision of normal in multigravida in second trimester related condition in second trimester Viral meningitis Family History Family History Grandparent Diabetes mellitus Social History Social History Smoking status: Never smoker Smoking end date: 10/28/16 Alcohol intake: never Substance use: former Substance use type: marijuana Gender identity (if verbalized by the patient): Female Spiritual care concerns: No Comments At the time of my signature, I reviewed and agree with the nursing past medical, surgical, social, and family history. There is no relevant family history pertinent to the patient complaint. Exam Const: General: healthy appearing, no acute distress and alert Nutritional Appearance: well nourished Orientation/consciousness: patient oriented x3 Limitations: no limitations HENMT: Head: normal to inspection Teeth image: 1. redness and swelling to the wisdom tooth with a small puss pocket Eyes: Conjunctivae: conjunctivae normal Pupils: Equal, round and reactive pupils present Neck: Neck: normal visual inspection, no lymphadenopathy and no meningeal signs Chest: Chest palpation & inspection: normal inspection of the chest Resp: Effort & Inspection: normal respiratory effort Auscultation: clear to auscultation bilaterally Cardio: Rate: regular rate Rhythm: regular rhythm GI: GI Palp: Yes Soft to palpation and No Tenderness to palpation present (GI) : General: Yes no CVA tenderness Back/Spine/Pelvis: Back: no CVA tenderness Skin: General skin exam: normal color Rashes: no rashes Wounds: no wounds Neuro: General: patient oriented x3, moves all extremities, no meningeal signs and no focal motor deficits Speech: normal speech Gait exam (Neuro): Normal gait present Extrem: General: normal to inspection and no pedal edema Psych: Appearan
[2021-06-09 16:31] VITALS: BP 101/64; PULSE 86; RESP 16; TEMP 37.2; O2SAT 99
== END 2021-06-09 16:42 | disposition home or self-care (01) ==
PROVIDERS: Emergency Provider Nurse Practitioner; PCP Nurse Practitioner Family
DX: K04.7 Periapical abscess without sinus (principal)
CPT/HCPCS: 99213; G0463

== ENCOUNTER 2021-07-09 11:07 | Emergency (ER) | payer OTHER, SELFPAY ==
--- NOTE | ~2021-07-09 | US_ITS ---
EXAMINATION: US OB <=14 wk fetus w TV EXAM DATE: 07/09/2021 12:42 INDICATION: Abdominal Pain Pos Preg Ab Pain, + Preg 1st trimester. TECHNIQUE: Pelvic obstetrical transabdominal sonogram was performed by a technologist. There are mu ltiple grayscale and Doppler images available for interpretation. There are no earlier studies of th is gestation for comparison. FINDINGS: Uterus measures 8.6 x 4.5 x 4.7 cm, with thickened endometrium at 28 mm, could be decidual reaction given positive test. No intrauterine or extrauterine identified at this timeThere is small free pelvic fluid. Right adnexa: The ovary is not identified. There is no adnexal mass. Left adnexa: The ovary measures 3.3 x 2.7 x 2.1 cm, may have the corpus luteal cyst measuring 2 cm. O varian vascular flow confirmed. Early intrauterine or recent spontaneous are common causes of elevated beta hCG in absence of intrauterine confirmation. Ultrasound can sometimes identify, but never exclud e an ectopic in the setting of positive beta hCG. IMPRESSION: Thickened endometrium without intrauterine or extrauterine identified. Follow up as warranted clinically with serial beta hCG levels or ultrasound. Reviewed, dictated and finalized at location A. IMPRESSION: Thickened endometrium without intrauterine or extrauterine pregnanc y identified. Follow up as warranted clinically with serial beta hCG levels or ultrasound.
[2021-07-09 11:11] VITALS: BP 100/50; PULSE 105; RESP 20; TEMP 36.8; O2SAT 98
--- NOTE | 2021-07-09 12:20 | ED.GENADULT ---
HPI - General Adult General Chief complaint: Unspecified Stated complaint: TRICH, ABD PAIN, PREG Time Seen by Provider: 07/09/21 11:32 Source: patient Mode of arrival: ambulatory Limitations: no limitations History of Present Illness HPI narrative: Patient presents with chief complaint of abdominal pain and cramping. Patient states that she started metronidazole for trichomonas on . Patient states today she had a positive test. Patient states she has 2 children at home and was wanting to begin the Depo-Provera shots. Patient states that she is not sure if her abdominal cramping is related to the metronidazole or something else. Patient reports feeling some nausea. She has not had vomiting. Patient states she does not know when her last menstrual period was. She states she had some bleeding 2 to 3 weeks ago but it was not consistent with her menstrual cycles. Related Data Allergies Allergy/AdvReac Type Severity Reaction Status Date / Time terbutaline Allergy Rash Verified 06/09/21 16:27 Review of Systems Review of Systems: CONSTITUTIONAL: Denies fever, chills, or sweats. EYES: Denies visual changes, redness, or discharge. ENT: Denies rhinorrhea, congestion, sore throat, or otalgia. CARDIOVASCULAR: Denies chest pain, palpitations, or edema. RESPIRATORY: Denies cough or dyspnea. GASTROINTESTINAL: Reports abdominal pain, nausea, denies vomiting, or diarrhea. GENITOURINARY: Denies dysuria or hematuria. SKIN: Denies rash or itching. MUSCULOSKELETAL: Denies back pain, joint pain, or myalgia. NEUROLOGIC: Denies headache, numbness, dizziness, or weakness. PSYCHIATRIC: Denies anxiety or depression. [facility] Past Medical History Medical History (Updated 07/09/21 @ 13:55 by Rebeca Snow PA-C) Anxiety Depression Encounter for supervision of normal in multigravida in second trimester related condition in second trimester Viral meningitis Family History Family History Grandparent Diabetes mellitus Social History Social History Smoking status: Never smoker Smoking end date: 10/28/16 Alcohol intake: never Substance use: former Substance use type: marijuana Gender identity (if verbalized by the patient): Female Sexual Orientation (if Verbalized by the Patient): Straight or Heterosexual Spiritual care concerns: No Exam Narrative: GENERAL: Well-appearing, well-nourished, and in no acute distress. HEAD: Normocephalic, atraumatic. EYES: PERRLA and EOMI. ENT: Nares clear, no rhinorrhea or epistaxis. Mucous membranes moist. Oropharynx without tonsillar hypertrophy exudate or other lesions. Bilateral TMs pearly davis nonbulging NECK: Supple. No adenopathy or masses. CHEST: Clear to auscultation. No respiratory distress. No wheezes rales or rhonchi HEART: Regular rate and rhythm. No murmur heard. Normal peripheral pulses. ABDOMEN: Soft, no guarding or distention, patient reports mild diffuse lower abdominal tenderness, nondistended, normal active bowel sounds. EXTREMITIES: Normal range of motion. No edema. SKIN: Warm, dry, no rash. NEURO: No focal deficits. Alert and oriented x3. PSYCH: Normal mood and affect. Course Vital Signs Vital signs: Vital Signs Temperature 98.3 F 07/09/21 11:11 Pulse Rate 105 H 07/09/21 11:11 Respiratory Rate 20 07/09/21 11:11 Blood Pressure 100/50 L 07/09/21 11:11 Pulse Oximetry 98 07/09/21 11:11 Temperature 98.3 F 07/09/21 11:11 Pulse Rate 69 07/09/21 14:00 Respiratory Rate 12 07/09/21 14:00 Blood Pressure 114/68 07/09/21 14:00 Pulse Oximetry 99 07/09/21 14:00 Medical Decision Making [facility] Narrative Medical decision making narrative: Recheck abdominal exam there is no pain with palpation over her right or left ovaries. There is no abdominal pain when palpated. Patient states that she is ready to leave as her
[2021-07-09 14:00] VITALS: BP 114/68; PULSE 69; RESP 12; O2SAT 99
[2021-07-09 14:28] LABS: Beta HCG Quantitative 149.35 mIU/ML
== END 2021-07-09 14:44 | disposition home or self-care (01) ==
PROVIDERS: Physician Assistant; Emergency Provider Emergency Medicine; PCP Nurse Practitioner Family
DX: Z32.01 Encounter for pregnancy test, result positive (principal)
CPT/HCPCS: 36415; 76801; 76817; 81025; 84702; 99284

== ENCOUNTER 2021-07-12 12:32 | Outpatient (CLI) | payer OTHER, SELFPAY | END 2021-07-12 12:33 | disposition home or self-care (01) | LOC: ANHLAB 12:34 | PROVIDERS: PCP Nurse Practitioner Family; Visit Provider Obstetrics & Gynecology | DX: Z32.01 Encounter for pregnancy test, result positive (principal) | CPT/HCPCS: 36415; 84702 ==

== ENCOUNTER 2021-07-30 07:49 | Emergency (ER) | payer OTHER, SELFPAY ==
--- NOTE | ~2021-07-30 | US_ITS ---
EXAMINATION: US OB <=14 wk fetus w TV DATE: 07/30/2021 14:04 INDICATION: Nausea and vomiting. TECHNIQUE: Real-time transabdominal obstetric ultrasound. FINDINGS: Comparison to ultrasound dated 07/09/2021 The uterus measures 8.5 x 5 x 4.8 cm. There is an intrauterine gestational sac, with pole ident ified. The crown rump length measures 0.71 cm, which correlates with a estimated gestational age of 6 weeks 4 days. heart tones are identified measuring 128 BPM. 2 separate areas of subchorioni c hemorrhage are identified. Largest measures 1.2 x 0.2 x 0.2 cm. Right ovary is not visualized. Left ovary is within normal limits. IMPRESSION: 1. SL IUP with an EGA of 6 weeks, 4 days (EDC by current ultrasound of 03/21/2022). 2: 2 small areas of subchorionic hemorrhage. Reviewed, dictated and finalized at location A. IMPRESSION: 1. SL IUP with an EGA of 6 weeks, 4 days (EDC by current ultrasound of ). 2: 2 small areas of subchorionic hemorrhage.
[2021-07-30 08:04] VITALS: BP 123/81; PULSE 108; RESP 16; TEMP 36.5; O2SAT 98
[2021-07-30 08:20] LABS: Basophils Percent Auto 0.3 % (0.2-1.2); Eosinophils Absolute Auto 0.1 K/mm3 (0-0.3); Eosinophils Percent Auto 0.5 % (0-4.4); Hematocrit 35.3 % (37.0-47.0); Hemoglobin 12.1 g/dL (12.0-15.0); Immature Granulocyte Absolute 0.03 K/mm3 (0.00-0.031); Immature Granulocyte Percent A 0.3 % (0-0.5); Lymphocytes Absolute Auto 1.97 K/mm3 (0.9-3.2); Lymphocytes Percent Auto 21.6 % (18.3-44.2); Mean Corpuscular HGB Conc 34.3 g/dl (32-36); Mean Corpuscular Hemoglobin 28.1 pg (26-34); Mean Corpuscular Volume 81.9 fl (80-100); Mean Platelet Volume 8.9 fl (7.4-10.4); Monocytes Absolute Auto 0.8 K/mm3 (0.1-0.6); Monocytes Percent Auto 8.5 % (2.6-8.5); Neutrophils Absolute Auto 6.3 K/mm3 (1.3-6.7); Neutrophils Percent Auto 68.8 % (45.5-73.1); Platelet Count Result 336 k/mm3 (150-375); Red Blood Count 4.31 M/mm3 (4.2-5.4); Red Cell Distribution Width 11.3 % (11.5-14.5); White Blood Count 9.1 K/mm3 (4.5-10.0)
[2021-07-30 08:31] LABS: Alanine Aminotransferase 22 U/L (4-35); Albumin Level 4.9 g/dL (3.5-5.1); Alkaline Phosphatase 48 U/L (38-126); Anion Gap 10 mmol/L (8-16); Aspartate Amino Transferase 29 U/L (14-36); Bilirubin,Total 0.6 mg/dL (0.2-1.3); Blood Urea Nitrogen 12 mg/dL (7-17); Calcium 9.3 mg/dL (8.4-10.2); Carbon Dioxide 26 mmol/L (22-30); Chloride 100 mmol/L (98-107); Estimated CRCL calculation 107 ml/min; Estimated Glomerular Filt Rate > 60; Glucose 96 mg/dL (65-110); Lipase 67 U/L (23-300); Potassium 3.7 mmol/L (3.4-5.0); Sodium 136 mmol/L (137-145)
[2021-07-30 09:53] LABS: Add Urine Microscopic? YES; Appearance Urine Cloudy (Clear); Bacteria Urine Trace /hpf; Bilirubin Urine Negative (Negative); Blood Urine 1+ (Negative); Color Urine Amber (Yellow); Glucose Urine UA Negative (Negative); Ketones Urine 2+ mg/dL (Negative); Leukocyte Esterase Ur 2+ LEU/UL (Negative); Mucus Urine Heavy /lpf; Nitrate Urine Negative (Negative); Protein Urine 2+ mg/dL (Negative); RBC Urine 21-50 /hpf (0-2); Specific Grav Ur 1.031 (1.001-1.035); Squamous Epithelial Cell Urine Many /hpf (Few); WBC Urine 21-30 /hpf
--- NOTE | 2021-07-30 13:02 | ED.GENADULT ---
HPI - General Adult General Chief complaint: Nausea/Vomiting/Diarrhea Stated complaint: vomiting Time Seen by Provider: 07/30/21 12:38 Source: patient Mode of arrival: ambulatory Limitations: no limitations History of Present Illness HPI narrative: Pt presents for evaluation and treatment of pelvic pain for the last two days. Pain has been intermittent, described as poking and is progressively worsening. She states she is currently . She was seen here on 07/09 with complaints of abdominal pain. Urine hcg at that time was negative but quant hcg was 149. LMP 06/23/21. She was evaluated here she contacted her DEPUTY ADMINISTRATOR, Dr. Mcginnis. She states she has an appointment there on 08/13/21. Last 2 weeks she has had headache, dizziness, lightheadedness, seeing white spots , nausea and vomiting. She states that she is unable to keep food down. She has been using Zofran and a suppository without significant improvement in her symptoms. She is experienced hot flashes and chills. She also endorses shortness of breath without a considerable cough. She has some thick white clumpy discharge that she feels is a yeast infection. She states she was told she had BV but it was not recommended she be treated due to her . She states she has dysuria without other urinary symptoms. . Blood type is B positive. Related Data Allergies Allergy/AdvReac Type Severity Reaction Status Date / Time terbutaline Allergy Rash Verified 06/09/21 16:27 Review of Systems Review of Systems: CONSTITUTIONAL: Reports hot flashes and chills. EYES: Reports seeing white spots , redness, or discharge. ENT: Denies rhinorrhea, congestion, sore throat, or otalgia. CARDIOVASCULAR: Denies chest pain, palpitations, or edema. RESPIRATORY: Reports shortness of breath. Denies cough GASTROINTESTINAL: Reports pelvic pain, nausea and vomiting GENITOURINARY: Reports dysuria without other urinary symptoms. Reports white vaginal discharge without vaginal bleeding SKIN: Denies rash or itching. MUSCULOSKELETAL: Reports low back pain. Denies joint pain, or myalgia. NEUROLOGIC: Reports headache, lightheadedness and dizziness. PSYCHIATRIC: Denies anxiety or depression. [facility] Past Medical History Medical History (Updated 07/30/21 @ 15:01 by Yunior Stephenson, FINANCIAL AID ADMINISTRATOR, BC) Anxiety Depression Encounter for supervision of normal in multigravida in second trimester related condition in second trimester Viral meningitis Family History Family History Grandparent Diabetes mellitus Social History Social History Smoking status: Never smoker Smoking end date: 10/28/16 Alcohol intake: never Substance use: former Substance use type: marijuana Gender identity (if verbalized by the patient): Female Sexual Orientation (if Verbalized by the Patient): Straight or Heterosexual Spiritual care concerns: No Exam Narrative: GENERAL: Well-appearing, well-nourished, and in no acute distress. HEAD: Normocephalic, atraumatic. EYES: PERRLA and EOMI. ENT: Nares clear, no rhinorrhea or epistaxis. Mucous membranes moist. Oropharynx without tonsillar hypertrophy exudate or other lesions. Bilateral TMs pearly davis nonbulging NECK: Supple. No adenopathy or masses. No carotid bruits or JVD CHEST: Clear to auscultation. No respiratory distress. No wheezes rales or rhonchi HEART: Regular rate and rhythm. No murmur heard. Normal peripheral pulses. ABDOMEN: Soft, tenderness in suprapubic region without rebound or guarding, nondistended, normal active bowel sounds. GENITAL: No external genital lesions. No adnexal tenderness. No cervical motion tenderness. There is a moderate amount of milky white clumpy drainage in vaginal vault with no visible blood. Cervical os is closed. EXTREMITIES: Normal range of motion. No edema. SKIN: Warm, dry, no rash. NEURO: No
[2021-07-30] MEDS: diphenhydrAMINE HCl INJ 50 MG/ML VIAL 25 MG IV PUSH (13:20)
[2021-07-30] MEDS: LACTATED RINGERS 1,000 ML 150 ML IV CONT (13:20)
[2021-07-30] MEDS: METOCLOPRAMIDE HCL INJ 10 MG/2 ML VIAL IV PUSH (13:25)
[2021-07-30 14:43] LABS: Partial Thromboplastin Time 28.1 SECONDS (22.3-36.8); Prothrombin Time 13.2 Seconds (11.1-14.7)
[2021-07-30 15:40] VITALS: BP 104/64; PULSE 100; RESP 16; O2SAT 100
== END 2021-07-30 15:40 | disposition home or self-care (01) ==
PROVIDERS: Emergency Medicine; Emergency Provider Nurse Practitioner; PCP Nurse Practitioner Family
DX: O21.9 Vomiting of pregnancy, unspecified (principal); O99.281 Endocrine, nutritional and metabolic diseases complicating pregnancy, first trimester; E86.0 Dehydration; O23.41 Unspecified infection of urinary tract in pregnancy, first trimester; Z3A.01 Less than 8 weeks gestation of pregnancy
CPT/HCPCS: 36415; 76801; 76817; 80053; 81001; 81025; 83690; 84702; 85025; 85610; 85730; 87070; 87086; 87088; 87106; 87186; 87491; 87591; 87808; 96361; 96374; 96375; 99284; J1200; J2765; J7120

== ENCOUNTER 2021-08-02 10:47 | Emergency (ER) | payer OTHER, SELFPAY ==
[2021-08-02 11:25] VITALS: BP 144/93; PULSE 92; RESP 12; TEMP 36.9; O2SAT 98
[2021-08-02 11:54] VITALS: BP 110/66; PULSE 84
[2021-08-02 11:55] VITALS: BP 119/86; PULSE 80
[2021-08-02 11:56] VITALS: BP 100/86; PULSE 76
[2021-08-02] MEDS: DEXTROSE 5%/LACTATED RINGERS 1,000 ML 1000 ML IV CONT (12:02)
[2021-08-02] MEDS: METOCLOPRAMIDE HCL INJ 10 MG/2 ML VIAL IV PUSH (12:02)
[2021-08-02] MEDS: diphenhydrAMINE HCl INJ 50 MG/ML VIAL 25 MG IV PUSH (12:02)
[2021-08-02 12:15] LABS: Basophils Percent Auto 0.3 % (0.2-1.2); Eosinophils Percent Auto 0.3 % (0-4.4); Hematocrit 36.7 % (37.0-47.0); Hemoglobin 12.4 g/dL (12.0-15.0); Immature Granulocyte Absolute 0.03 K/mm3 (0.00-0.031); Immature Granulocyte Percent A 0.3 % (0-0.5); Lymphocytes Absolute Auto 2.02 K/mm3 (0.9-3.2); Lymphocytes Percent Auto 19.1 % (18.3-44.2); Mean Corpuscular HGB Conc 33.8 g/dl (32-36); Mean Corpuscular Hemoglobin 28.2 pg (26-34); Mean Corpuscular Volume 83.4 fl (80-100); Mean Platelet Volume 9.3 fl (7.4-10.4); Monocytes Absolute Auto 0.8 K/mm3 (0.1-0.6); Monocytes Percent Auto 7.5 % (2.6-8.5); Neutrophils Absolute Auto 7.7 K/mm3 (1.3-6.7); Neutrophils Percent Auto 72.5 % (45.5-73.1); Platelet Count Result 334 k/mm3 (150-375); Red Cell Distribution Width 11.5 % (11.5-14.5); White Blood Count 10.6 K/mm3 (4.5-10.0)
[2021-08-02 12:24] LABS: Add Urine Microscopic? YES; Appearance Urine Clear (Clear); Bilirubin Urine Negative (Negative); Blood Urine Negative (Negative); Color Urine Amber (Yellow); Glucose Urine UA Negative (Negative); Ketones Urine 2+ mg/dL (Negative); Leukocyte Esterase Ur Trace LEU/UL (Negative); Mucus Urine Heavy /lpf; Nitrate Urine Negative (Negative); Protein Urine 3+ mg/dL (Negative); Squamous Epithelial Cell Urine Many /hpf (Few)
[2021-08-02 12:32] LABS: Alanine Aminotransferase 23 U/L (4-35); Albumin Level 4.8 g/dL (3.5-5.1); Alkaline Phosphatase 55 U/L (38-126); Anion Gap 11 mmol/L (8-16); Aspartate Amino Transferase 32 U/L (14-36); Bilirubin,Total 0.4 mg/dL (0.2-1.3); Blood Urea Nitrogen 10 mg/dL (7-17); Calcium 9.4 mg/dL (8.4-10.2); Carbon Dioxide 27 mmol/L (22-30); Chloride 100 mmol/L (98-107); Estimated CRCL calculation 112 ml/min; Estimated Glomerular Filt Rate > 60; Glucose 97 mg/dL (65-110); Potassium 3.7 mmol/L (3.4-5.0); Sodium 138 mmol/L (137-145)
[2021-08-02 12:36] LABS: Specific Grav Ur 1.031 (1.001-1.035)
[2021-08-02] MEDS: ONDANSETRON INJ 4 MG/2 ML VIAL IV PUSH (13:15)
--- NOTE | 2021-08-02 13:24 | ED.NAVMDI ---
HPI - Nausea/Vomiting/Diarrhea General Chief complaint: Nausea/Vomiting/Diarrhea Stated complaint: 7 weeks preg, need IVF per OB Time Seen by Provider: 08/02/21 11:19 Source: patient, RN notes reviewed and old records reviewed Mode of arrival: ambulatory Limitations: no limitations History of Present Illness HPI Narrative: This is a 21 year old female approximately 6 wk GA who presents for evaluation of intractable nausea and vomiting. She states she is unable to keep any fluids or food down. She was evaluated in ED 2-3 days ago for similar symptoms. She states she given medication through an IV and she felt better. She was prescribed antiemetic but she states she has not taken it in 2 days. She had an US performed on that visit and it showed an IUP with subchrorioinic hemorrhage. She reports mild lower abdominal pain but denies vaginal bleeding. She was told she may have lower abdominal pain due to UTI. She was also started on cephalexin on that ED visit. She states she is awaiting home health to be set up for IVF at home, but she was told to come to ER for IVF hydration. Related Data Allergies Allergy/AdvReac Type Severity Reaction Status Date / Time terbutaline Allergy Rash Verified 08/02/21 11:29 Review of Systems Review of Systems: All systems reviewed & are unremarkable except as noted in HPI and below PMFSH Past Medical History Medical History (Updated 08/02/21 @ 15:46 by Cassidy Pedroza MD) Anxiety Depression Encounter for supervision of normal in multigravida in second trimester related condition in second trimester Viral meningitis Family History Family History Grandparent Diabetes mellitus Social History Social History Smoking status: Never smoker Smoking end date: 10/28/16 Alcohol intake: never Substance use: former Substance use type: marijuana Gender identity (if verbalized by the patient): Female Sexual Orientation (if Verbalized by the Patient): Straight or Heterosexual Spiritual care concerns: No Exam Const: General: no acute distress and alert Nutritional Appearance: thin Orientation/consciousness: patient oriented x3 HENMT: Mouth: Yes Normal oral and palatal mucosa present Eyes: EOM: EOMs intact bilaterally Resp: Effort & Inspection: normal respiratory effort and no retractions Auscultation: not clear to auscultation bilaterally Cardio: Rate: regular rate Rhythm: regular rhythm Heart sounds: no murmurs GI: GI Palp: Yes Soft to palpation, No Tenderness to palpation present (GI) and No Guarding due to palpation present (GI) Auscultation: normal bowel sounds Skin: General skin exam: normal color Rashes: no rashes Neuro: General: patient oriented x3, moves all extremities and CN's II-XI intact bilaterally Extrem: General: normal to inspection Psych: Mental Status: mental status grossly normal Affect: normal affect Course Reevaluation(s) Reevaluation #1: Patient presented with nausea and vomiting. She was given dose on reglan with benadryl on arrival. She was able to tolerate apple sauce at that time but she had emesis with drinking water. She was then given zofran and she was able tolerate apple juice. She was given 2 L IVF and she states she feels much better. She denies nausea at this time. I Discussed discharge plan and she appointment with OB next week. Date: 08/02/21 Time: 15:41 Consultations Consultation #1: I discussed with Dr. Mcginnis about patient. I discussed UA with improving ketouria. He agrees patient can be discharge home since she is able to tolerate PO. Date: 08/02/21 Time: 15:30 Vital Signs Vital signs: Vital Signs Temperature 98.4 F 08/02/21 11:25 Pulse Rate 92 08/02/21 11:25 Respiratory Rate 12 08/02/21 11:25 Blood Pressure 144/93 H 08/02/21 11:25 Pulse Oximetry 98 08/02/21 11:25
[2021-08-02] MEDS: DEXTROSE 5%/LACTATED RINGERS 500 ML IV CONT (13:55)
[2021-08-02 15:05] LABS: Add Urine Microscopic? YES; Appearance Urine Clear (Clear); Bilirubin Urine Negative (Negative); Blood Urine Negative (Negative); Color Urine Yellow (Yellow); Glucose Urine UA 3+ mg/dL (Negative); Ketones Urine 1+ mg/dL (Negative); Leukocyte Esterase Ur Negative LEU/UL (Negative); Mucus Urine Moderate /lpf; Nitrate Urine Negative (Negative); Protein Urine Negative (Negative); Squamous Epithelial Cell Urine Many /hpf (Few); WBC Urine 0-3 /hpf
[2021-08-02 15:09] VITALS: BP 109/71; PULSE 75; RESP 18; O2SAT 99
[2021-08-02 16:14] VITALS: BP 106/70; PULSE 78; RESP 16; TEMP 37; O2SAT 99
== END 2021-08-02 16:15 | disposition home or self-care (01) ==
PROVIDERS: Emergency Provider General Practice; PCP Nurse Practitioner Family
DX: O21.1 Hyperemesis gravidarum with metabolic disturbance (principal); Z3A.01 Less than 8 weeks gestation of pregnancy
CPT/HCPCS: 36415; 80053; 81001; 85025; 96361; 96374; 96375; 99284; J1200; J2405; J2765; J7121

== ENCOUNTER 2021-08-14 08:26 | Outpatient (RCR) | payer OTHER, SELFPAY ==
[2021-08-14 08:40] VITALS: BP 120/69; PULSE 80; RESP 14; TEMP 36.8; O2SAT 98; BMI 17.7
--- NOTE | 2021-08-14 13:10 | PC.NURSE ---
0830 Patient ambulatory to treatment room for picc line insertion due to hyperemesis. No complaints of discomfort voiced. Patient A & O x3.
--- NOTE | 2021-08-14 13:23 | PC.NURSE ---
0900 Patient refusing picc line insertion after reading consent. Patient does not feel it is necessary. She has had very few episodes of vomiting this past week. Her urine in clear pale yellow now. She had a bologna sandwich and Doritos this morning for breakfast and was not having any issues. 0905 Patient left without picc line insertion. Patient will call if she feels that she does need the picc line inserted. Dr. Mcginnis's office nurse Kristel notified.
== END 2021-11-12 23:59 | disposition home or self-care (01) ==
LOC: ANHVASCINF 08:26
PROVIDERS: PCP Nurse Practitioner Family; Visit Provider Obstetrics & Gynecology
DX: Z45.2 Encounter for adjustment and management of vascular access device (principal); O21.0 Mild hyperemesis gravidarum; Z3A.00 Weeks of gestation of pregnancy not specified
CPT/HCPCS: 99199

== ENCOUNTER 2021-09-10 07:32 | Observation (INO) | payer OTHER, SELFPAY ==
[2021-09-10 07:56] VITALS: BP 105/60; PULSE 80
[2021-09-10 08:00] VITALS: BMI 17.5
[2021-09-10] MEDS: LACTATED RINGERS 1,000 ML 999 ML IV CONT (08:10)
[2021-09-10 08:14] LABS: Add Urine Microscopic? YES; Appearance Urine Cloudy (Clear); Bacteria Urine Trace /hpf; Bilirubin Urine Negative (Negative); Blood Urine Negative (Negative); Color Urine Yellow (Yellow); Glucose Urine UA Negative (Negative); Ketones Urine Negative (Negative); Leukocyte Esterase Ur 2+ LEU/UL (Negative); Mucus Urine Heavy /lpf; Nitrate Urine Negative (Negative); Protein Urine 1+ mg/dL (Negative); Specific Grav Ur 1.026 (1.001-1.035); Squamous Epithelial Cell Urine Many /hpf (Few)
[2021-09-10 08:25] VITALS: TEMP 36.7
--- NOTE | 2021-09-10 09:10 | PC.NURSE ---
Natalie SPIVEYM called,read UA results and informed pt states she feels better and is ready to go home. Discharge order received.
--- NOTE | 2021-09-10 10:15 | OBADM ---
This patient, Yuni Mejia, admitted to the OB room OB Post 117 for observation. Patient/family oriented to hospital policies and general routines including ID bracelet, bed and alarms, visiting hours, pain management, procedures, bathroom and other care routines, personal items, smoking policy, room service/diet, and visiting hours. Patient/Family are encouraged to report perceived risks to care and to ask questions if they do not understand what they are told or what they should do.
--- NOTE | 2021-09-10 10:32 | PC.NURSE ---
0732-S.Naima CN was unit when pt arrived, pt explained that her back was hurting and she needed IVF's. 1L LR bolus and UA ordered.
--- NOTE | 2021-09-13 06:46 | P.PNOB_ITS ---
OB - Triage/Final Diagnosis Visit Information Date of evaluation: 09/10/21 Reason for evaluation: other Comments/Additional reasons for admission: I have assessed the risk for this patient, Yuni Sanchez Roberto, and determined that she would benefit from observation care. Back pain Evaluation Laboratory results: Laboratory Tests 09/10/21 07:56 Urine Color Yellow Urine Appearance Cloudy H Urine pH 6.0 Ur Specific [place] 1.026 Urine Protein 1+ H Urine Glucose (UA) Negative Urine Ketones Negative Ur Blood (Man) Negative Urine Nitrate Negative Urine Bilirubin Negative Urine Urobilinogen 2.0 H Leukocyte Esterase Rfl 2+ H Urine RBC 6-10 H Urine WBC 10-15 H Ur Squamous Epith Cells Many H Urine Bacteria Trace Urine Mucus Heavy H
== END 2021-09-10 09:30 | disposition home or self-care (01) ==
PROVIDERS: Advanced Practice Midwife; Admitting Provider Obstetrics & Gynecology; PCP Nurse Practitioner Family; Visit Provider Obstetrics & Gynecology
DX: O99.891 Other specified diseases and conditions complicating pregnancy (principal); M54.9 Dorsalgia, unspecified; Z3A.13 13 weeks gestation of pregnancy
CPT/HCPCS: 81001; 87086; G0378; G0379; J7120

== ENCOUNTER 2021-10-08 13:13 | Observation (INO) | payer OTHER, SELFPAY ==
[2021-10-08 15:08] LABS: Add Urine Microscopic? YES; Appearance Urine Cloudy (Clear); Bilirubin Urine Negative (Negative); Blood Urine Negative (Negative); Color Urine Yellow (Yellow); Glucose Urine UA Negative (Negative); Ketones Urine Negative (Negative); Leukocyte Esterase Ur Negative LEU/UL (NEGATIVE); Mucus Urine Few /lpf; Nitrate Urine Negative (Negative); Protein Urine Negative (Negative); RBC Urine 0-2 /hpf (0-2); Specific Grav Ur 1.026 (1.001-1.035); Squamous Epithelial Cell Urine Many /hpf (Few); WBC Urine 0-3 /hpf (0-3)
--- NOTE | 2021-10-08 15:13 | OBADM ---
This patient, Yuni Mejia, admitted to the OB room OB Post 116 for observation. Patient/family oriented to hospital policies and general routines including ID bracelet, bed and alarms, visiting hours, pain management, procedures, bathroom and other care routines, personal items, smoking policy, room service/diet, and visiting hours. Patient/Family are encouraged to report perceived risks to care and to ask questions if they do not understand what they are told or what they should do.
[2021-10-08 15:22] LABS: Amphetamine Screen Urine Negative (Negative); Barbiturate Screen Urine Negative (Negative); Benzodiazepines Screen Urine Negative (Negative); Cannabinoid Screen Urine Negative (Negative); Cocaine Screen Urine Negative (Negative); Methadone Screen Urine Negative (Negative); Opiate Screen Urine Negative (Negative); Phencyclidine Screen Urine Negative (Negative)
--- NOTE | 2021-10-08 15:38 | PC.NURSE ---
[id number]--Discussed situation with pt. Pt assures me that she is in a safe situation at home and the person with her is not hurting her in any way; only helping her financially. She denies any bleeding today but complains of lower abdominal cramping and lower back pain, did admit to intercourse within 24 hours of visit, denies being physically struck at any time.
--- NOTE | 2021-10-08 15:48 | PC.NURSE ---
1524--Reported labs and updated pt information to Peyton Joya.
--- NOTE | 2021-10-08 15:49 | PC.NURSE ---
1530--Reminded pt to keep appointment at the office tomorrow. Encouraged pt to drink 8 8-oz glasses of water daily.
--- NOTE | 2021-10-28 10:34 | PM.OBTRLD ---
OB - Triage/Final Diagnosis Visit Information Comments/Additional reasons for admission: I have assessed the risk for this patient, Yuni Mejia, and determined that she would benefit from observation care. Evaluation Laboratory results: Laboratory Tests 10/08/21 10/08/21 14:55 14:55 Urine Color Yellow Urine Appearance Cloudy H Urine pH 6.0 Ur Specific [place] 1.026 Urine Protein Negative Urine Glucose (UA) Negative Urine Ketones Negative Ur Blood (Man) Negative Urine Nitrate Negative Urine Bilirubin Negative Urine Urobilinogen 2.0 H Ur Leukocyte Esterase Negative Urine RBC 0-2 Urine WBC 0-3 Ur Squamous Epith Cells Many H Urine Mucus Few H Urine Opiates Screen Negative Urine Methadone Screen Negative Ur Barbiturates Screen Negative Ur Phencyclidine Scrn Negative Ur Amphetamine Screen Negative U Benzodiazepines Scrn Negative Urine Cocaine Screen Negative U Cannabinoids Screen Negative Final Diagnosis (1) False labor: Code(s): O47.9 - False labor, unspecified Status: Acute
== END 2021-10-08 15:35 | disposition home or self-care (01) ==
PROVIDERS: Advanced Practice Midwife; Admitting Provider Obstetrics & Gynecology; PCP Nurse Practitioner Family; Visit Provider Obstetrics & Gynecology
DX: O47.02 False labor before 37 completed weeks of gestation, second trimester (principal); Z3A.17 17 weeks gestation of pregnancy
CPT/HCPCS: 80307; 81001; 87086; G0378; G0379

== ENCOUNTER 2021-12-17 10:25 | Observation (INO) | payer OTHER, SELFPAY ==
[2021-12-17 10:42] VITALS: BP 104/62; PULSE 93; RESP 18; TEMP 36.6
[2021-12-17 11:08] LABS: Add Urine Microscopic? YES; Appearance Urine Clear (Clear); Bacteria Urine Trace /hpf; Bilirubin Urine Negative (Negative); Blood Urine Negative (Negative); Color Urine Yellow (Yellow); Glucose Urine UA Negative (Negative); Ketones Urine Trace mg/dL (Negative); Leukocyte Esterase Ur Negative LEU/UL (NEGATIVE); Mucus Urine Rare /lpf; Nitrate Urine Negative (Negative); Protein Urine Negative (Negative); RBC Urine 0-2 /hpf (0-2); Specific Grav Ur 1.025 (1.001-1.035); Squamous Epithelial Cell Urine Many /hpf (Few); Urobilinogen Urine Negative mg/dL (<2.0); WBC Urine 0-3 /hpf (0-3)
[2021-12-17 11:19] VITALS: BMI 21.9
--- NOTE | 2021-12-20 08:02 | P.PNOB_ITS ---
OB - Triage/Final Diagnosis Visit Information Date of evaluation: 12/17/21 Reason for evaluation: threatened labor Comments/Additional reasons for admission: I have assessed the risk for this patient, Yuni Mejia, and determined that she would benefit from obse rvation care. Evaluation Laboratory results: Laboratory Tests 12/17/21 10:51 Urine Color Yellow Urine Appearance Clear Urine pH 5.0 Ur Specific [place] 1.025 Urine Protein Negative Urine Glucose (UA) Negative Urine Ketones Trace Ur Blood (Man) Negative Urine Nitrate Negative Urine Bilirubin Negative Urine Urobilinogen Negative Ur Leukocyte Esterase Negative Urine RBC 0-2 Urine WBC 0-3 Ur Squamous Epith Cells Many H Urine Bacteria Trace Urine Mucus Rare
== END 2021-12-17 11:58 | disposition home or self-care (01) ==
PROVIDERS: Advanced Practice Midwife; Admitting Provider Obstetrics & Gynecology; PCP Nurse Practitioner Family; Visit Provider Obstetrics & Gynecology
DX: O47.03 False labor before 37 completed weeks of gestation, third trimester (principal); Z3A.27 27 weeks gestation of pregnancy
CPT/HCPCS: 81001; 87086; G0378; G0379

== ENCOUNTER 2022-02-23 21:51 | Observation (INO) | payer OTHER, SELFPAY ==
[2022-02-23 22:10] VITALS: BP 131/77; PULSE 62
[2022-02-23 22:15] VITALS: BP 133/84; PULSE 63; BMI 27.6
[2022-02-23 22:30] VITALS: BP 134/83; PULSE 69
[2022-02-23 22:45] VITALS: BP 140/77; PULSE 61
--- NOTE | 2022-02-23 22:46 | OBADM ---
This patient, Yuni Mejia, admitted to the OB room Labor/Delivery/Recovery 103 for observation. Patient/family oriented to hospital policies and general routines including ID bracelet, bed and alarms, visiting hours, pain management, procedures, bathroom and other care routines, personal items, smoking policy, room service/diet, and visiting hours. Patient/Family are encouraged to report perceived risks to care and to ask questions if they do not understand what they are told or what they should do.
[2022-02-23 22:47] LABS: Add Urine Microscopic? YES; Appearance Urine Cloudy (Clear); Bacteria Urine Trace /hpf; Bilirubin Urine Negative (Negative); Blood Urine Negative (Negative); Color Urine Straw (Yellow); Glucose Urine UA Negative (Negative); Ketones Urine Negative (Negative); Leukocyte Esterase Ur 2+ LEU/UL (Negative); Mucus Urine Rare /lpf; Nitrate Urine Negative (Negative); Protein Urine Negative (Negative); Specific Grav Ur 1.006 (1.001-1.035); Squamous Epithelial Cell Urine Moderate /hpf (Few); Urobilinogen Urine Negative mg/dL (<2.0)
[2022-02-23 23:00] VITALS: BP 114/72; PULSE 66
[2022-02-23 23:15] VITALS: BP 134/84; PULSE 71
--- NOTE | 2022-02-28 07:44 | P.PNOB_ITS ---
OB - Triage/Final Diagnosis Visit Information Date of evaluation: 02/23/22 Reason for evaluation: threatened labor Comments/Additional reasons for admission: I have assessed the risk for this patient, Yuni Mejia, and determined that she would benefit from obse rvation care. Evaluation Laboratory results: Laboratory Tests 02/23/22 22:28 Urine Color Straw Urine Appearance Cloudy H Urine pH 6.0 Ur Specific [place] 1.006 Urine Protein Negative Urine Glucose (UA) Negative Urine Ketones Negative Ur Blood (Man) Negative Urine Nitrate Negative Urine Bilirubin Negative Urine Urobilinogen Negative Leukocyte Esterase Rfl 2+ H Urine RBC 6-10 H Urine WBC 10-15 H Ur Squamous Epith Cells Moderate H Urine Bacteria Trace Urine Mucus Rare
== END 2022-02-23 23:55 | disposition home or self-care (01) ==
PROVIDERS: Advanced Practice Midwife; Admitting Provider Obstetrics & Gynecology; Visit Provider Obstetrics & Gynecology
DX: O47.1 False labor at or after 37 completed weeks of gestation (principal); Z3A.37 37 weeks gestation of pregnancy
CPT/HCPCS: 81001; 84112; 87086; 87088; G0378; G0379

== ENCOUNTER 2022-03-02 14:27 | Outpatient (CLI) | payer OTHER, SELFPAY ==
[2022-03-02 15:02] VITALS: BP 125/75; PULSE 112
[2022-03-02 15:05] LABS: Basophils Percent Auto 0.2 % (0.2-1.2); Eosinophils Absolute Auto 0.1 K/mm3 (0-0.3); Eosinophils Percent Auto 0.8 % (0-4.4); Hematocrit 31.3 % (37.0-47.0); Hemoglobin 9.6 g/dL (12.0-15.0); Immature Granulocyte Absolute 0.14 K/mm3 (0.00-0.031); Immature Granulocyte Percent A 1.2 % (0-0.5); Lymphocytes Absolute Auto 1.84 K/mm3 (0.9-3.2); Lymphocytes Percent Auto 15.7 % (18.3-44.2); Mean Corpuscular HGB Conc 30.7 g/dl (32-36); Mean Corpuscular Hemoglobin 25.8 pg (26-34); Mean Corpuscular Volume 84.1 fl (80-100); Mean Platelet Volume 9.8 fl (7.4-10.4); Monocytes Absolute Auto 1.1 K/mm3 (0.1-0.6); Neutrophils Absolute Auto 8.6 K/mm3 (1.3-6.7); Neutrophils Percent Auto 73.1 % (45.5-73.1); Platelet Count Result 304 k/mm3 (150-375); Red Blood Count 3.72 M/mm3 (4.2-5.4); Red Cell Distribution Width 13.7 % (11.5-14.5); White Blood Count 11.7 K/mm3 (4.5-10.0)
[2022-03-02 15:15] VITALS: BP 120/82; PULSE 81
[2022-03-02 15:17] LABS: Alanine Aminotransferase 11 U/L (4-35); Albumin Level 3.1 g/dL (3.5-5.1); Alkaline Phosphatase 197 U/L (38-126); Anion Gap 5 mmol/L (8-16); Aspartate Amino Transferase 25 U/L (14-36); Bilirubin,Total < 0.1 mg/dL (0.2-1.3); Blood Urea Nitrogen 11 mg/dL (7-17); Calcium 8.5 mg/dL (8.4-10.2); Carbon Dioxide 22 mmol/L (22-30); Chloride 106 mmol/L (98-107); Estimated Glomerular Filt Rate > 60; Glucose 105 mg/dL (65-110); Potassium 3.6 mmol/L (3.4-5.0); Sodium 133 mmol/L (137-145); Uric Acid 4.6 mg/dL (2.5-7.5)
[2022-03-02 15:22] VITALS: BP 125/75; PULSE 82
[2022-03-02 15:50] LABS: Appearance Urine Slightly Cloudy (Clear); Bilirubin Urine Negative (Negative); Blood Urine Negative (Negative); Color Urine Yellow (Yellow); Glucose Urine UA Negative (Negative); Ketones Urine Trace mg/dL (Negative); Leukocyte Esterase Ur 1+ LEU/UL (NEGATIVE); Nitrate Urine Negative (Negative); Protein Urine Trace mg/dL (Negative); Specific Grav Ur >= 1.030 (1.001-1.035); Urobilinogen Urine 0.2 mg/dL (<2.0)
[2022-03-02 15:58] LABS: Bacteria Urine Trace /hpf; Mucus Urine Heavy /lpf; Squamous Epithelial Cell Urine Many /hpf (Few); WBC Urine 31-50 /hpf (0-3)
[2022-03-02 15:59] LABS: Add Urine Microscopic? YES
[2022-03-02 16:07] LABS: Creatinine Urine 245.5 mg/dL
[2022-03-02 16:13] LABS: Total Protein Urine Random < 5 mg/dL; Ur Ttl Prot Creatinine Ratio < 0.02 mg/mg (0-0.20)
== END 2022-03-02 16:17 | disposition home or self-care (01) ==
LOC: ANHOBOP 14:34 → ANHOBPP 14:37
PROVIDERS: Advanced Practice Midwife; Visit Provider Obstetrics & Gynecology
DX: O13.9 Gestational [pregnancy-induced] hypertension without significant proteinuria, unspecified trimester (principal)
CPT/HCPCS: 36415; 59025; 80053; 81001; 82570; 84156; 84550; 85025; 87086; 99199

== ENCOUNTER 2022-03-09 00:25 | Inpatient (IN) | payer OTHER, SELFPAY ==
[2022-03-09] VITALS (80 sets, daily range): BP systolic 105–163; BP diastolic 67–112; PULSE 60–96; RESP 16–18; TEMP 35.9–36.8; O2SAT 96–100; BMI 29.1
--- NOTE | 2022-03-09 00:25 | LDADM ---
This patient, Yuni Mejia, was admitted to Labor/Delivery/Recovery 108 on 03/09/22 at 00:25. Plans for labor, pain management and were discussed with patient. Patient/family oriented to hospital policies and general routines including ID bracelet, bed and alarms, visiting hours, pain management, procedures, bathroom and other care routines, personal items, smoking policy, room service/diet and guest tray routines, security routines, and visiting hours. Patient/Family are encouraged to report perceived risks to care and to ask questions if they do not understand what they are told or what they should do. See OBIX for further documentation.
[2022-03-09 01:05] LABS: Basophils Percent Auto 0.2 % (0.2-1.2); Eosinophils Absolute Auto 0.1 K/mm3 (0-0.3); Eosinophils Percent Auto 1.1 % (0-4.4); Hematocrit 31.1 % (37.0-47.0); Hemoglobin 9.5 g/dL (12.0-15.0); Immature Granulocyte Absolute 0.32 K/mm3 (0.00-0.031); Immature Granulocyte Percent A 2.6 % (0-0.5); Lymphocytes Absolute Auto 2.36 K/mm3 (0.9-3.2); Lymphocytes Percent Auto 19.2 % (18.3-44.2); Mean Corpuscular HGB Conc 30.5 g/dl (32-36); Mean Corpuscular Hemoglobin 25.4 pg (26-34); Mean Corpuscular Volume 83.2 fl (80-100); Mean Platelet Volume 10.2 fl (7.4-10.4); Monocytes Absolute Auto 1.5 K/mm3 (0.1-0.6); Monocytes Percent Auto 12.1 % (2.6-8.5); Neutrophils Absolute Auto 7.9 K/mm3 (1.3-6.7); Neutrophils Percent Auto 64.8 % (45.5-73.1); Nucleated Red Blood Cells Perc 0.2 % (0.0-0.2); Platelet Count Result 298 k/mm3 (150-375); Red Blood Count 3.74 M/mm3 (4.2-5.4); Red Cell Distribution Width 14.1 % (11.5-14.5); White Blood Count 12.3 K/mm3 (4.5-10.0)
[2022-03-09] MEDS: OXYTOCIN 30 UNITS/NS 500 ML 30 UNITS/500 ML BAG IV CONT (01:18)
[2022-03-09] MEDS: LACTATED RINGERS 1,000 ML 125 ML IV CONT ×2 (01:19→08:02)
[2022-03-09 01:34] LABS: Amphetamine Screen Urine Negative (Negative); Barbiturate Screen Urine Negative (Negative); Benzodiazepines Screen Urine Negative (Negative); Cannabinoid Screen Urine Negative (Negative); Cocaine Screen Urine Negative (Negative); Methadone Screen Urine Negative (Negative); Opiate Screen Urine Negative (Negative); Phencyclidine Screen Urine Negative (Negative)
--- NOTE | 2022-03-09 05:55 | WPDANESEPP ---
Anes - Eval Pre Procedure Date/Time: 03/09/22 05:55 Pre Op Diagnosis: IOL Patient Data Age: 22 Gender: F Height: 1.63 m Weight: 77 kg Last Vital Signs Temp 35.9 C L 03/09/22 05:00 Pulse 68 03/09/22 05:31 BP 125/67 03/09/22 05:31 Allergies Allergy/AdvReac Type Severity Reaction Status Date / Time terbutaline Allergy Rash Verified 08/02/21 11:29 Home Medications Medication Instructions Recorded Confirmed Type Classic 1 tablet PO DAILY 12/17/21 02/14/22 History Laboratory Tests 03/09/22 03/09/22 03/09/22 00:57 00:57 00:57 WBC 12.3 K/mm3 H K/mm3 (4.5-10.0) RBC 3.74 M/mm3 L M/mm3 (4.2-5.4) Hgb 9.5 g/dL L g/dL (12.0-15.0) Hct 31.1 % L % (37.0-47.0) MCV 83.2 fl fl (80-100) MCH 25.4 pg L pg (26-34) MCHC 30.5 g/dl L g/dl (32-36) RDW 14.1 % % (11.5-14.5) Plt Count 298 k/mm3 k/mm3 (150-375) MPV 10.2 fl fl (7.4-10.4) Immature Gran % (Auto) 2.6 % H % (0-0.5) Neut % (Auto) 64.8 % % (45.5-73.1) Lymph % (Auto) 19.2 % % (18.3-44.2) [place] % (Auto) 12.1 % H % (2.6-8.5) Eos % (Auto) 1.1 % % (0-4.4) Baso % (Auto) 0.2 % % (0.2-1.2) Lymph # (Auto) 2.36 K/mm3 K/mm3 (0.9-3.2) [place] # (Auto) 1.5 K/mm3 H K/mm3 (0.1-0.6) Eos # (Auto) 0.1 K/mm3 K/mm3 (0-0.3) Baso # (Auto) 0.0 K/mm3 K/mm3 (0.0-0.1) Abs Immat Gran (auto) 0.32 K/mm3 H K/mm3 (0.00-0.031) Absolute Neuts (auto) 7.9 K/mm3 H K/mm3 (1.3-6.7) Absolute Nucleated RBC 0.0 K/mm3 K/mm3 (0.0-0.012) Nucleated RBC % 0.2 % % (0.0-0.2) Urine Opiates Screen Urine Methadone Screen Ur Barbiturates Screen Ur Phencyclidine Scrn Ur Amphetamine Screen U Benzodiazepines Scrn Urine Cocaine Screen U Cannabinoids Screen RPR Pending Blood Type B Positive Antibody Screen Negative 03/09/22 00:57 WBC RBC Hgb Hct MCV MCH MCHC RDW Plt Count MPV Immature Gran % (Auto) Neut % (Auto) Lymph % (Auto) [place] % (Auto) Eos % (Auto) Baso % (Auto) Lymph # (Auto) [place] # (Auto) Eos # (Auto) Baso # (Auto) Abs Immat Gran (auto) Absolute Neuts (auto) Absolute Nucleated RBC Nucleated RBC % Urine Opiates Screen Negative (Negative) Urine Methadone Screen Negative (Negative) Ur Barbiturates Screen Negative (Negative) Ur Phencyclidine Scrn Negative (Negative) Ur Amphetamine Screen Negative (Negative) U Benzodiazepines Scrn Negative (Negative) Urine Cocaine Screen Negative (Negative) U Cannabinoids Screen Negative (Negative) RPR Blood Type Antibody Screen Patient hx anesthesia problems: none Family hx anesthesia problems: none Results Review: All pre-operative results and documents have been reviewed as part of the pre-operative evaluation. [facility] Past Medical History Medical History Anxiety Depression Encounter for supervision of normal in multigravida in second trimester related condition in second trimester Viral meningitis Family History Family History Grandparent Diabetes mellitus Social History Social History Smoking status: Never smoker Second hand tobacco smoke exposure: No Smoking end date: 10/28/16 Alcohol intake: never Substance use: never Substance use type: marijuana Gender identity (if verbalized by the patient): Female Sexu
[2022-03-09 06:30] LABS: Rapid Plasma Reagin Non-Reactive (NonReactive)
--- NOTE | 2022-03-09 06:33 | WPDOBADMIT ---
Obstetrics - Admit Note Admission Note: record reviewed. No pertinent additions to the history and/or any subsequent changes in the physical findings that are not consistent with the expected course of the were found. Admitted to labor for elective induction of labor. AROM with small amount of clear fluid. Anticipate vaginal delivery. Additions to the history and/or subsequent changes in the physical findings follow. None.
[2022-03-09] MEDS: fentaNYL CITRATE INJ (*CRX) 100 MCG/2 ML VIAL IV PUSH (08:02)
[2022-03-09] MEDS: miSOPROStol 200 MCG TABLET 1000 MCG (10:10)
--- NOTE | 2022-03-09 10:15 | PM.OBPRVD ---
OB - Delivery Note Procedure Delivery date: 03/09/22 Procedure: Vaginal delivery Induction method: AROM and Per Pitocin Protocol Delivery monitor: External FHT and External Uterine Route of delivery: Laceration Description: None Specimen: No Quantitative Blood Loss (ml): 208 Anesthesia type: Epidural Disposition: Floor Baby Date of : 03/09/22 Time of : 10:03 Weeks of gestation at delivery: 39 Infant gender: Female Weight (pounds): 7 Weight (ounces): 5 presentation: vertex position: Left Occiput Anterior Placenta delivery description: Spontaneous Cord Vessel Description: 3 Vessels, Loose, Reduced, Clamped/Cut, Delayed Cord Clamping and Around Body score one minute: 8 score five minutes: 9 Narrative: mom and baby in stable condition. Baby to warmer for assessment.
[2022-03-09] MEDS: OXYTOCIN 30 UNITS/NS 500 ML 30 UNITS/500 ML BAG 125 UNITS IV CONT (10:35)
--- NOTE | 2022-03-09 12:50 | PC.NURSE ---
Patient transferred to post room #283 via wheelchair. Support person present. Oriented to unit, room, information board, rooming in, admission packet and security measures. Patient verbalizes understanding.
[2022-03-09] MEDS: IBUPROFEN 600 MG TABLET PO ×2 (13:10→22:49)
[2022-03-09] MEDS: BENZOCAINE 20% AER SPR (*SP) 56 GM CAN 1 SPRAY TOPICAL (15:04)
[2022-03-09] MEDS: WITCH HAZEL 40 PADS 1 PAD TOPICAL (15:04)
[2022-03-09] MEDS: ACETAMINOPHEN 325 MG TABLET 650 MG PO (15:06)
[2022-03-10] MEDS: ACETAMINOPHEN 325 MG TABLET 650 MG PO (03:59)
[2022-03-10 04:04] VITALS: BP 150/85; PULSE 68; RESP 18; TEMP 36.4; O2SAT 98
[2022-03-10 04:51] LABS: Hemoglobin 9.1 g/dL (12.0-15.0)
[2022-03-10 07:25] VITALS: BP 129/78; PULSE 60; RESP 16; TEMP 36.3; O2SAT 96
[2022-03-10 07:27] VITALS: PULSE 60; RESP 16; O2SAT 96
--- NOTE | 2022-03-10 08:07 | P.PNOB_ITS ---
OB - PN: Subj Subjective Date/time seen: 03/10/22 08:07 Patient comments: no complaints and pain well controlled OB - PN: Obj Data Labs CBC & Chem 7: 03/10/22 03:54 Labs: Laboratory Results - last 24 hr 03/10/22 03:54 Hgb 9.1 L Hct 29.0 L OB - PN A/P Plan day: 1 Plan: routine care and discharge home Time Spent With Patient Time: Total time spent is greater than 50% in coordination of care (as document ed) at patient's floor/unit and/or counseling patient: Review of Systems Review of Systems: All systems reviewed & are unremarkable except as noted in HPI and below Exam Const: General: cooperative, healthy appearing and comfortable
[2022-03-10] MEDS: DOCUSATE SODIUM 100 MG CAPSULE PO (10:39)
[2022-03-10] MEDS: POLYSACCHARIDE IRON COMPLEX 150 MG CAPSULE PO (10:39)
[2022-03-10] MEDS: MULTIVIT/MIN/PREN/FOL AC/IRON TABLET 1 TAB PO (10:39)
[2022-03-10] MEDS: IBUPROFEN 600 MG TABLET PO (10:39)
[2022-03-10] MEDS: medroxyPROGESTERone ACETATE IM 150 MG/ML SYR IM (10:41)
--- NOTE | 2022-03-10 14:17 | PC.NURSE ---
1030-Patient was given the opportunity to view the discharge video Mother & Baby Care, The First Two Weeks and to ask questions. Patient declined viewing the video and has been given the mother/baby guide for home reference.
--- NOTE | 2022-03-14 07:16 | P.DS_ITS ---
DS: Admitting Diagnosis Discharge Date 03/10/22 Admitting Diagnosis iOL OB - DS: Summary OB Procedures : None OB Procedures Intrapartum: Spontaneous Vag Delivery OB Procedures: : None Time Spent with Patient Time attestation: Total time spent providing and/or coordinating discharge services: Discharge Plan Discharge Attending physician on discharge: Annette Mcginnis Consulting providers: Anju Mcnamara ; Carli Ag Discharging Clinician: Sa Naima Patient Disposition: Home, Self-Care Activity: pelvic rest Diet: regular Discharge Instructions: Education: Mom and Baby Guide Given to: Mother Follow-Up: Call your delivering provider's office for an appointment to be seen in: 1 Week Mom and baby should come to the [facility] for the follow-up appointment. Appointment Date/Time: Saturday, March 12, 2022 at 9:00 a.m. What to expect at your follow-up visit: Blood Pressure Check Physical Assessment Call [phone] if you are unable to keep your appointment time. BREAST CARE: * Wear a snug supportive bra. * For engorgement discomfort: Breast Feeding: * Apply warm moist washcloths * Express milk as needed to relieve engorgement * Wear loose clothing Bottle Feeding: * May apply ice packs * For sore nipples: * Identify correct latch-on * Apply warm moist washcloths before and after nursing * Air dry nipples after nursing * May apply Lansinoh cream to nipples EPISIOTOMY/PERINEAL CARE: * Until bleeding stops, use your deisy bottle after urinating * Change your pad frequently throughout the day * You may take sitz baths several times a day (fill your bathtub with warm water and soak for 20 minutes.) Do NOT bathe in the water * No tub baths until seen by your physician - You may shower ACTIVITY: * Rest as much as possible. * Do not exercise or lift anything heavier than your baby (such as laundry or other children.) * Avoid stairs or driving as much as possible. * Do not put anything into the vagina. No douching, tampons, or sexual activity until seen by physician. NOTIFY PHYSICIAN IF YOU HAVE ANY QUESTIONS OR IF ANY OF THE FOLLOWING SYMPTOMS OCCUR: * If your vaginal bleeding becomes foul smelling. * If your vaginal bleeding becomes more heavy than a period or if your bleeding changes from pink to bright red. However, you may pass an occasional walnut- sized clot once or twice for the first week . * If you experience a sharp, shooting pain in you calves. * If you discover a hard, reddened area on your breast or if you experience flu- like symptoms. DIET: * Eat regular, well-balanced meals. * Drink plenty of fluids daily. If , drink to thirst. Stand Alone Forms: General Discharge Information Follow-up/Referrals: Anju Mcnamara CNM [Certified Nurse Senior Vice President] - 4 Weeks Discharge Medications: New polysaccharide iron complex 150 mg iron Capsule 150 mg PO BIDWM Qty: 60 RF: 0 Continued Classic 1 tablet PO DAILY RF: 0 Date of admission: 03/09/22 00:25 Primary Care Provider: PHYSICIAN,CLAIM EXAMINER Admitting Provider: Annette Mcginnis Attending physician on admission: Annette Mcginnis Condition: Stable
== END 2022-03-10 14:00 | disposition home or self-care (01) | DRG 560 ==
LOC: ANHLDR 00:29 → ANHOB2 13:14
PROVIDERS: Advanced Practice Midwife; Admitting Provider Obstetrics & Gynecology; Visit Provider Obstetrics & Gynecology
DX: O69.82X0 Labor and delivery complicated by other cord entanglement, without compression, not applicable or unspecified (principal); Z37.0 Single live birth; Z3A.39 39 weeks gestation of pregnancy
CPT/HCPCS: 36415; 80307; 85014; 85018; 85025; 86592; 86850; 86900; 86901; A9270; J1050; J2590; J2795; J3010; J7120

== ENCOUNTER 2022-03-27 10:37 | Emergency (ER) | payer OTHER, SELFPAY ==
[2022-03-27] VITALS (10 sets, daily range): BP systolic 113–135; BP diastolic 76–101; PULSE 57–82; RESP 13–29; TEMP 36.3; O2SAT 97–100
--- NOTE | ~2022-03-27 | CT_ITS ---
EXAMINATION: CTA chest PE protocol DATE: 03/27/2022 12:41 INDICATION: chest pain and shortness of breath TECHNIQUE: Computed tomography (CT) pulmonary angiogram of the chest was performed with 100 mL Omnipa que-350 intravenous contrast. Additional 3D reconstructions utilizing coronal maximum intensity proje ction (MIP) were performed. Automated exposure control and iterative reconstruction technique were em ployed. The dose-length product was 196.02 mGy-cm. COMPARISON: None FINDINGS: Excellent contrast opacification of the pulmonary arteries. There is mild streak artifact from dense contrast in the superior vena cava and right atrium. Mild scattered respiratory motion artifact most prominent at the left lower lung zone which does not significantly limit evaluation. No pulmonary emb olism. No pneumonia, pulmonary edema, pleural effusion or pneumothorax. Heart size is normal. No deisy cardial effusion. Thoracic aorta is normal in caliber with no dissection. No pathologically enlarged thoracic lymphadenopathy. Visualized upper abdomen and bones are unremarkable. IMPRESSION: 1. No pulmonary embolism or other acute cardiopulmonary disease. Reviewed, dictated and finalized at location B.
--- NOTE | ~2022-03-27 | XR_ITS ---
EXAMINATION: XR chest 2V 03/27/2022 11:19 INDICATION: Chest pain and shortness of breath PROCEDURE: 2 view chest COMPARISON: No prior studies for comparison. FINDINGS: The lungs are clear. The cardiomediastinal silhouette is within normal limits. There are no pleural effusions. There is no pneumothorax suspected. IMPRESSION: 1: NO ACUTE CARDIOPULMONARY DISEASE. Reviewed, dictated and finalized at location A.
--- NOTE | 2022-03-27 11:04 | ECG_ITS ---
Measurements Intervals [place] Rate: 63 P: 68 CO: 136 QRS: 6 QRSD: 89 T: 48 QT: 376 QTc: 386 Interpretive Statements SINUS RHYTHM WITH SINUS ARRHYTHMIA DELAYED PRECORDIAL R/S TRANSITION BASELINE ARTIFACT- III, AVF, V1 BORDERLINE ECG Electronically Signed On 03-27-2022 14:30:48 CDT by Vinicio Martínez D.O.
--- NOTE | 2022-03-27 11:16 | ED.GENADULT ---
HPI - General Adult General Chief complaint: Unspecified Stated complaint: sent by OB, blood clots? Time Seen by Provider: 03/27/22 11:16 Source: patient Mode of arrival: ambulatory Limitations: no limitations History of Present Illness HPI narrative: Patient is a 22-year-old female who presents the ED with multiple symptoms. Patient is approximately 2 weeks and has had issues with anxiety and panic attacks in the past and recurring since delivering her baby. No complications with or . Vaginal delivery. She states she was on Prozac previously but has not been taking this recently as she felt it was making her panic attacks worse. Over the last 3 to 4 days, she has had increased anxiety, accompanied with difficulty breathing and sharp intermittent right-sided chest pains. She has not tried anything for her pain or symptoms. She called her HAT LACER about her symptoms and saw the HAT LACER on-call in the office today. She was then referred to the ED for further evaluation and to r/o potential blood clots. Patient also reports having intermittent left-sided abdominal pain, but denies any nausea, vomiting, fever, chills, cough, cold symptoms, back pain, headache, BLE pain or edema. Related Data Home Medications Medication Instructions Recorded Confirmed Classic 1 tablet PO DAILY 12/17/21 02/14/22 Allergies Allergy/AdvReac Type Severity Reaction Status Date / Time terbutaline Allergy Rash Verified 03/27/22 11:16 Review of Systems Review of Systems: CONSTITUTIONAL: Denies fever, chills, or sweats. ENT: Denies rhinorrhea, congestion, sore throat. CARDIOVASCULAR: Reports R sided CP. Denies palpitations, or edema. RESPIRATORY: Reports SOB. Denies cough. GASTROINTESTINAL: Reports intermittent left-sided abdominal pain. Denies nausea, vomiting, or diarrhea. GENITOURINARY: Denies dysuria or hematuria. SKIN: Denies rash or itching. MUSCULOSKELETAL: Denies back pain, BLE pain. NEUROLOGIC: Denies headache, numbness, or weakness. PSYCHIATRIC: Reports anxiety and panic attacks. All systems reviewed & are unremarkable except as noted in HPI and below PMFSH Past Medical History Medical History (Updated 03/28/22 @ 00:00 by Background Daemon) Anxiety Depression Encounter for supervision of normal in multigravida in second trimester related condition in second trimester Viral meningitis Surgical History Surgical History (Updated 03/27/22 @ 13:40 by Anisa Carlson PA-C) No pertinent past surgical history Family History Family History Grandparent Diabetes mellitus Social History Social History (Updated 03/27/22 @ 13:41 by Anisa Carlson PA-C) Smoking status: Current every day smoker Tobacco type: e-cigarettes/vaping Second hand tobacco smoke exposure: No Alcohol intake: never Substance use: never Substance use type: marijuana Gender identity (if verbalized by the patient): Female Sexual Orientation (if Verbalized by the Patient): Straight or Heterosexual Spiritual care concerns: No Exam Narrative: GENERAL: Well appearing, well-nourished, non-toxic, in no acute distress. HEAD: Normocephalic, atraumatic. EYES: PERRL/EOMI, conjunctivae clear bilaterally. NECK: Supple. No adenopathy, no masses. RESPIRATORY: Airway patent, respirations nonlabored. Clear to auscultation bilaterally, no rales, rhonchi, wheezing. CARDIOVASCULAR: Regular rate and rhythm without murmurs, rubs, or gallops. Peripheral pulses 2+ and equal bilaterally. ABDOMINAL: Soft, no significant tenderness to palpation, nondistended, no hepatosplenomegaly. Normoactive BS. MUSCULOSKELETAL: Moves all extremities. Strength/ROM intact without gross deformities or TTP. No edema. No calf tenderness. No chest wall tenderness to palpation. SKIN: Warm, dry, normal color. No rashes. NEURO: A&O X3. Speech clear. Cranial nerves II-XII grossly intact.
[2022-03-27 11:34] LABS: Alanine Aminotransferase 20 U/L (6-35); Albumin Level 4.5 g/dL (3.5-5.1); Alkaline Phosphatase 112 U/L (38-126); Anion Gap 7 mmol/L (8-16); Aspartate Amino Transferase 32 U/L (14-36); Bilirubin,Total 0.3 mg/dL (0.2-1.3); Blood Urea Nitrogen 17 mg/dL (7-17); Calcium 8.9 mg/dL (8.4-10.2); Carbon Dioxide 24 mmol/L (22-30); Chloride 110 mmol/L (98-107); Estimated CRCL calculation 82 ml/min; Estimated Glomerular Filt Rate > 60; Glucose 89 mg/dL (65-110); Potassium 3.9 mmol/L (3.4-5.0); Sodium 141 mmol/L (137-145)
--- NOTE | 2022-03-27 11:38 | PC.NURSE ---
called lab and spoke to Kathy about D Dimer add on.
[2022-03-27 11:40] LABS: Basophils Percent Auto 0.7 % (0.2-1.2); Eosinophils Absolute Auto 0.1 K/mm3 (0-0.3); Eosinophils Percent Auto 1.1 % (0-4.4); Immature Granulocyte Absolute 0.01 K/mm3 (0.00-0.031); Immature Granulocyte Percent A 0.2 % (0-0.5); Lymphocytes Absolute Auto 2.36 K/mm3 (0.9-3.2); Lymphocytes Percent Auto 44.2 % (18.3-44.2); Mean Corpuscular HGB Conc 30.8 g/dl (32-36); Mean Corpuscular Hemoglobin 24.8 pg (26-34); Mean Corpuscular Volume 80.7 fl (80-100); Mean Platelet Volume 9.8 fl (7.4-10.4); Monocytes Absolute Auto 0.4 K/mm3 (0.1-0.6); Monocytes Percent Auto 8.1 % (2.6-8.5); Neutrophils Absolute Auto 2.4 K/mm3 (1.3-6.7); Neutrophils Percent Auto 45.7 % (45.5-73.1); Platelet Count Result 349 k/mm3 (150-375); Red Blood Count 4.83 M/mm3 (4.2-5.4); Red Cell Distribution Width 14.4 % (11.5-14.5); White Blood Count 5.3 K/mm3 (4.5-10.0)
[2022-03-27 12:00] LABS: D Dimer 1.68 ug/mL (<0.48)
[2022-03-27 12:20] LABS: Add Urine Microscopic? YES; Appearance Urine Cloudy (Clear); Bilirubin Urine 1+ (Negative); Blood Urine 3+ (Negative); Glucose Urine UA Negative (Negative); Ketones Urine Trace mg/dL (Negative); Leukocyte Esterase Ur Trace LEU/UL (Negative); Nitrate Urine Negative (Negative); Protein Urine 2+ mg/dL (Negative); Specific Grav Ur >= 1.030 (1.001-1.035); Urobilinogen Urine 0.2 mg/dL (<2.0)
[2022-03-27] MEDS: SODIUM CHLORIDE 0.9% IV 1,000 ML 999 ML IV CONT (12:22)
[2022-03-27 12:46] LABS: Budding Yeast Urine Present /hpf; Mucus Urine Heavy /lpf; RBC Urine >75 /hpf (0-2); Squamous Epithelial Cell Urine Many /hpf (Few); WBC Clumps Urine Present /HPF; WBC Urine 51-75 /hpf
[2022-03-27 12:50] LABS: Color Urine Other (Yellow)
--- NOTE | 2022-03-27 14:03 | PC.NURSE ---
called lab, spoke to Julianna, add on Trop I
[2022-03-27] MEDS: FLUCONAZOLE 150 MG TABLET PO (14:09)
[2022-03-27 14:29] LABS: Troponin I < 0.012 ng/mL (0.000-0.034)
== END 2022-03-27 14:28 | disposition home or self-care (01) ==
PROVIDERS: Physician Assistant; Emergency Provider Emergency Medicine; PCP Nurse Practitioner Family
DX: N39.0 Urinary tract infection, site not specified (principal); F41.9 Anxiety disorder, unspecified; F17.290 Nicotine dependence, other tobacco product, uncomplicated
CPT/HCPCS: 36415; 71046; 71275; 80053; 81001; 84484; 85025; 85380; 87086; 87088; 93005; 96365; 99284; A9270; J0131; J7030; Q9967

== ENCOUNTER 2022-05-03 16:26 | Emergency (ER) | payer OTHER, SELFPAY ==
[2022-05-03 16:35] VITALS: BP 124/81; PULSE 55; RESP 16; TEMP 37.1; O2SAT 97
--- NOTE | 2022-05-03 16:38 | ED.GENADULT ---
HPI - General Adult General Chief complaint: Abdominal Pain Stated complaint: chest pain Time Seen by Provider: 05/03/22 16:31 History of Present Illness HPI narrative: 22-year-old female presents emergency room states I think I am having a heart attack . Patient does admit though that she is been dealing with a lot of anxiety. She had a history of anxiety and depression. She just had her third child a month ago. She went to another emergency department yesterday she got impatient if they did not see her quickly enough and subsequently left. She states I keep feeling my chest to make sure my heart is beating . Patient has no significant past medical history other than depression and anxiety. There is no family history of any premature cardiac abnormalities. She denies any shortness of breath. No dyspnea with exertion. She had no swelling in her legs. No history of DVTs. She has having some dark foul-smelling urine and having some mild urinary frequency. Related Data Home Medications Medication Instructions Recorded Confirmed Classic 1 tablet PO DAILY 12/17/21 02/14/22 Allergies Allergy/AdvReac Type Severity Reaction Status Date / Time terbutaline Allergy Rash Verified 03/27/22 11:16 Review of Systems Review of Systems: CONSTITUTIONAL: Denies fever, chills, or sweats. EYES: Denies visual changes, redness, or discharge. ENT: Denies rhinorrhea, congestion, sore throat, or otalgia. CARDIOVASCULAR: Denies chest pain, palpitations, or edema. RESPIRATORY: Denies cough or dyspnea. GASTROINTESTINAL: Denies abdominal pain, nausea, vomiting, or diarrhea. GENITOURINARY: Dysuria and a dark foul-smelling urine SKIN: Denies rash or itching. MUSCULOSKELETAL: Denies back pain, joint pain, or myalgia. NEUROLOGIC: Denies headache, numbness, or weakness. PSYCHIATRIC: Denies anxiety or depression. [facility] Past Medical History Medical History Anxiety Depression Encounter for supervision of normal in multigravida in second trimester related condition in second trimester Viral meningitis Surgical History Surgical History No pertinent past surgical history Family History Family History Grandparent Diabetes mellitus Social History Social History Smoking status: Current every day smoker Tobacco type: e-cigarettes/vaping Second hand tobacco smoke exposure: No Alcohol intake: never Substance use: never Substance use type: marijuana Gender identity (if verbalized by the patient): Female Sexual Orientation (if Verbalized by the Patient): Straight or Heterosexual Spiritual care concerns: No Exam Narrative: APPEARANCE: Well appearing, no pain or distress, well-nourished. Head normocephalic and atraumatic. EYES: PERRLA/EOMI, conjunctivae very clear. NOSE: Normal with no drainage EARS:TMS clear James Crawford, with good light reflex. THROAT: Pharynx clear, no exudate. NECK: Supple. No adenopathy, no masses. RESPIRATORY: Airway patent, respirations nonlabored. Clear to auscultation bilaterally, no rales, rhonchi, wheezing. CARDIOVASCULAR: Regular rate and rhythm without murmurs, rubs, or gallops. ABDOMINAL: Soft, nontender, nondistended, no hepatosplenomegaly Musculoskeletal: Moves all extremities. Strength/ROM intact, No edema, No calf tenderness. NEURO: Alert. Cranial nerves II through XII intact. Normal gait. Good coordination. Nonfocal examination. SKIN:: Warm, dry. Normal Color PSYCHIATRIC: Normal affect/mood, normal interaction Course Vital Signs Vital signs: Vital Signs Temperature 98.7 F 05/03/22 16:35 Pulse Rate 55 L 05/03/22 16:35 Respiratory Rate 16 05/03/22 16:35 Blood Pressure 124/81 05/03/22 16:35 Pulse Oximetry 97 05/03/22 16:35 Oxygen
[2022-05-03 17:00] LABS: Appearance Urine Clear (Clear); Bilirubin Urine Negative (Negative); Blood Urine Negative (Negative); Color Urine Yellow (Yellow); Glucose Urine UA Negative (Negative); Ketones Urine Negative (Negative); Leukocyte Esterase Ur Negative LEU/UL (Negative); Nitrate Urine Negative (Negative); Protein Urine Negative (Negative); Specific Grav Ur 1.025 (1.001-1.035); Urobilinogen Urine 0.2 mg/dL (<2.0)
[2022-05-03 17:20] LABS: Add Urine Microscopic? NO
[2022-05-03 17:36] VITALS: BP 111/89; PULSE 57; RESP 16; O2SAT 98
== END 2022-05-03 17:37 | disposition home or self-care (01) ==
PROVIDERS: Emergency Provider Emergency Medicine; PCP Nurse Practitioner Family
DX: F41.9 Anxiety disorder, unspecified (principal)
CPT/HCPCS: 81003; 99283

== ENCOUNTER 2022-05-20 14:39 | Emergency (ER) | payer OTHER, SELFPAY ==
--- NOTE | ~2022-05-20 | XR_ITS ---
EXAMINATION: XR chest 1V portable Exam Date/Time: 05/20/2022 15:10 CDT HISTORY: INTERMEDIATE CP X 1 WK, dyspnea, anxiety, NO CARDIAC HX Comparison: 03/27/2022. RESULT: Lines, tubes, and devices: None. Lungs and pleura: Clear. Cardiomediastinal silhouette: Stable. Other: No acute osseous or upper abdominal finding. IMPRESSION: No acute cardiopulmonary process. Reviewed, dictated and finalized at location K.
[2022-05-20 14:40] VITALS: BP 118/80; PULSE 67; RESP 16; TEMP 36.3; O2SAT 97
--- NOTE | 2022-05-20 15:08 | ECG_ITS ---
Measurements Intervals [place] Rate: 61 P: 78 FL: 141 QRS: 60 QRSD: 88 T: 35 QT: 394 QTc: 399 Interpretive Statements SINUS RHYTHM WITH SINUS ARRHYTHMIA BASELINE ARTIFACT- I, II, III, AVR, AVL, AVF, V1, V4-V5 NORMAL ECG Electronically Signed On 05-20-2022 20:51:20 CDT by Vinicio Martínez D.O.
[2022-05-20] MEDS: MECLIZINE HCL 25 MG TABLET PO (15:47)
[2022-05-20 16:01] LABS: Basophils Percent Auto 0.4 % (0.2-1.2); Eosinophils Absolute Auto 0.1 K/mm3 (0-0.3); Eosinophils Percent Auto 1.8 % (0-4.4); Hematocrit 39.6 % (37.0-47.0); Hemoglobin 12.3 g/dL (12.0-15.0); Immature Granulocyte Absolute 0.01 K/mm3 (0.00-0.031); Immature Granulocyte Percent A 0.2 % (0-0.5); Lymphocytes Absolute Auto 2.34 K/mm3 (0.9-3.2); Lymphocytes Percent Auto 42.8 % (18.3-44.2); Mean Corpuscular HGB Conc 31.1 g/dl (32-36); Mean Corpuscular Hemoglobin 25.3 pg (26-34); Mean Corpuscular Volume 81.5 fl (80-100); Mean Platelet Volume 9.6 fl (7.4-10.4); Monocytes Absolute Auto 0.5 K/mm3 (0.1-0.6); Monocytes Percent Auto 9.3 % (2.6-8.5); Neutrophils Absolute Auto 2.5 K/mm3 (1.3-6.7); Neutrophils Percent Auto 45.5 % (45.5-73.1); Platelet Count Result 287 k/mm3 (150-375); Red Blood Count 4.86 M/mm3 (4.2-5.4); Red Cell Distribution Width 14.4 % (11.5-14.5); White Blood Count 5.5 K/mm3 (4.5-10.0)
[2022-05-20 16:02] LABS: Appearance Urine Clear (Clear); Bilirubin Urine Negative (Negative); Blood Urine Negative (Negative); Color Urine Yellow (Yellow); Glucose Urine UA Negative (Negative); Ketones Urine Negative (Negative); Leukocyte Esterase Ur Negative LEU/UL (Negative); Nitrate Urine Negative (Negative); Protein Urine Negative (Negative); Urobilinogen Urine 0.2 mg/dL (<2.0); pH Urine 5.5 (5.0-9.0)
[2022-05-20 16:05] LABS: Add Urine Microscopic? NO
[2022-05-20 16:10] LABS: Anion Gap 11 mmol/L (8-16); Blood Urea Nitrogen 14 mg/dL (7-17); Calcium 9.1 mg/dL (8.4-10.2); Carbon Dioxide 25 mmol/L (22-30); Chloride 104 mmol/L (98-107); Estimated CRCL calculation 93 ml/min; Estimated Glomerular Filt Rate > 60; Glucose 89 mg/dL (65-110); Sodium 140 mmol/L (137-145)
--- NOTE | 2022-05-20 16:19 | ED.GENADULT ---
HPI - General Adult General Chief complaint: Unspecified Stated complaint: MULTIPLE C/O Time Seen by Provider: 05/20/22 15:06 History of Present Illness HPI narrative: 22-year-old female with history of anxiety presenting with nonspecific symptoms including chest pain on and off and palpitations for a month, intermittent constipation and abdominal discomfort, and vertigo also on and off for a month. She has seen multiple doctors but would like to have blood work in case there is something going on. Has been unable to follow-up with her primary care doctor at this time, she is currently seeing a therapist and has been started on Zoloft. Related Data Home Medications Medication Instructions Recorded Confirmed Classic 1 tablet PO DAILY 12/17/21 02/14/22 Allergies Allergy/AdvReac Type Severity Reaction Status Date / Time terbutaline Allergy Rash Verified 03/27/22 11:16 Review of Systems Review of Systems: CONST: No fever. HEENT: No sore throat C/V: Chest pain and palpitations RESP: Occasional feeling of dyspnea GI: Abdominal discomfort, constipation, nausea : No dysuria or vaginal discharge M/S: No joint pain. SKIN: No rash. NEURO: Occasional episodes of vertigo PSYCH: Anxiety PMFSH Past Medical History Medical History Anxiety Depression Encounter for supervision of normal in multigravida in second trimester related condition in second trimester Viral meningitis Surgical History Surgical History No pertinent past surgical history Family History Family History Grandparent Diabetes mellitus Social History Social History Smoking status: Current every day smoker Tobacco type: e-cigarettes/vaping Second hand tobacco smoke exposure: No Alcohol intake: never Substance use: never Substance use type: marijuana Gender identity (if verbalized by the patient): Female Sexual Orientation (if Verbalized by the Patient): Straight or Heterosexual Spiritual care concerns: No Exam Narrative: EXAMINATION OF ORGAN SYSTEMS/BODY AREAS: Constitutional: Vital signs per nursing GENERAL:[No acute distress, non-toxic appearing.] HEAD: Normal with no signs of head trauma. EYES: EOMI, conjunctiva normal ENT: Hearing grossly intact LUNGS: Nonlabored breathing. HEART: [Regular rate and rhythm] ABD: [Soft], [nontender to palpation] EXT: Normal range of motion SKIN: [No rashes or lesions.] NEURO: [Alert and oriented x 3. No gross focal sensory or strength deficits.] PSYCH: Normal affect Course Vital Signs Vital signs: Vital Signs Temperature 97.4 F L 05/20/22 14:40 Pulse Rate 67 05/20/22 14:40 Respiratory Rate 16 05/20/22 14:40 Blood Pressure 118/80 05/20/22 14:40 Pulse Oximetry 97 05/20/22 14:40 Oxygen Delivery Room Air 05/20/22 14:40 Temperature 97.4 F L 05/20/22 14:40 Pulse Rate 67 05/20/22 14:40 Respiratory Rate 16 05/20/22 14:40 Blood Pressure 118/80 05/20/22 14:40 Pulse Oximetry 97 05/20/22 14:40 Oxygen Delivery Room Air 05/20/22 14:40 Medical Decision Making MDM Narrative Medical decision making narrative: 22-year-old female presenting with feeling of anxiety, chest discomfort, constipation, vertigo, all intermittent over the last month, vital signs stable, exam shows well-appearing patient with clear lungs and normal cardiopulmonary exam, and normal neurologic exam without any focal neurologic deficits. Abdomen is soft and nontender. I have low concern for any acute intracranial or intra-abdominal or cardiac abnormality given the vague symptoms and normal exam, as well as her age and no risk factors. However given her concern I will obtain basic blood work, EKG, chest x-ray, and urinalysis as she was worried that she
== END 2022-05-20 16:54 | disposition home or self-care (01) ==
PROVIDERS: Emergency Provider Emergency Medicine; PCP Nurse Practitioner Family
DX: R42 Dizziness and giddiness (principal); F41.9 Anxiety disorder, unspecified; F32.A Depression, unspecified; F17.290 Nicotine dependence, other tobacco product, uncomplicated
CPT/HCPCS: 36415; 71045; 80048; 81003; 85025; 87491; 87591; 93005; 99284; A9270

== ENCOUNTER 2022-05-30 21:45 | Emergency (ER) | payer OTHER, SELFPAY ==
[2022-05-30 21:50] VITALS: BP 131/72; PULSE 75; RESP 16; TEMP 36.9; O2SAT 98
--- NOTE | 2022-05-30 22:16 | ED.FEMALEGU ---
HPI - Female Genitourinary General Chief complaint: Urogenital-Female Stated complaint: abd pain, chest tightness Time Seen by Provider: 05/30/22 22:04 History of Present Illness HPI Narrative: 22-year-old female who is 2 months from an uncomplicated vaginal delivery here for evaluation of vaginal bleeding over the past week and intermittent lower abdominal discomfort. Patient states that she has had brown discharge with some intermittent blood clots noted in her discharge. No known exposures to STIs. She is currently on Depo-Provera, got her first shot about 3 months ago. She is a patient of Dr. Mcginnis. Of note, patient is a frequent flyer of the ED for anxiety type reactions; workup for chest pain/sob symptoms accompanying the anxiety have been unrevealing. She does tell me that she has been having lots of anxiety recently with similar symptoms. Denies any suicidal or homicidal ideation. Related Data Home Medications Medication Instructions Recorded Confirmed Classic 1 tablet PO DAILY 12/17/21 02/14/22 Allergies Allergy/AdvReac Type Severity Reaction Status Date / Time terbutaline Allergy Rash Verified 05/30/22 21:50 Review of Systems Review of Systems: Gen: Denies fevers or chills Eyes: Denies eye pain or visual change ENT: Denies congestion Respiratory: Denies shortness of breath or cough CV: Denies chest pain or palpitations GI: reports lower abdominal pain. Denies nausea, emesis or diarrhea reports vaginal bleeding/discharge. Denies burning, urgency, frequency or hematuria Musculoskeletal: Denies back pain or muscle pain Neuro: Denies numbness, tingling, weakness or focal weakness Skin: Denies rash Except as documented, all other systems reviewed and negative [facility] Past Medical History Medical History Anxiety Depression Encounter for supervision of normal in multigravida in second trimester related condition in second trimester Viral meningitis Surgical History Surgical History No pertinent past surgical history Family History Family History Grandparent Diabetes mellitus Social History Social History Smoking status: Current every day smoker Tobacco type: e-cigarettes/vaping Second hand tobacco smoke exposure: No Alcohol intake: never Substance use: never Substance use type: marijuana Gender identity (if verbalized by the patient): Female Sexual Orientation (if Verbalized by the Patient): Straight or Heterosexual Spiritual care concerns: No Exam Narrative: APPEARANCE: anxious appearing but nontoxic, resting in bed EYES: EOMI HEENT: Normocephalic, atraumatic, OMM RESPIRATORY: No respiratory distress Clear to auscultation bilaterally with no rhonchi wheezing or rales. CARDIOVASCULAR: Regular rate and rhythm without murmurs rubs or gallops. ABDOMINAL: Soft, nontender, nondistended, no rebound or guarding MUSCULOSKELETAL: Moves all extremities. No clubbing, cyanosis or edema. : exam performed with energy assistant Haile. large amount of watery alcazar discharge noted on exam; whiff test positive. reports discomfort with exam but she has no cervical motion tenderness NEURO: Awake and alert. Following commands, speech normal, no focal deficits SKIN: Warm, dry. No rashes lesions or abrasions PSYCHIATRIC: anxious appearing Course Vital Signs Vital signs: Vital Signs Temperature 98.5 F 05/30/22 21:50 Pulse Rate 75 05/30/22 21:50 Respiratory Rate 16 05/30/22 21:50 Blood Pressure 131/72 05/30/22 21:50 Pulse Oximetry 98 05/30/22 21:50 Temperature 98.5 F 05/30/22 21:50 Pulse Rate 68 05/31/22 00:02 Respiratory Rate 20 05/31/22 00:02 Blood Pressure 113/86 05/31/22 00:02 Pulse Oximetry 98 05/31/22 00:
[2022-05-30 22:40] LABS: Appearance Urine Clear (Clear); Bilirubin Urine Negative (Negative); Blood Urine 3+ (Negative); Color Urine Yellow (Yellow); Glucose Urine UA Negative (Negative); Ketones Urine Negative (Negative); Leukocyte Esterase Ur Negative LEU/UL (Negative); Nitrate Urine Negative (Negative); Protein Urine 1+ mg/dL (Negative); Specific Grav Ur >= 1.030 (1.001-1.035); Urobilinogen Urine 0.2 mg/dL (<2.0); pH Urine 5.5 (5.0-9.0)
[2022-05-30 22:43] LABS: Bacteria Urine Trace /hpf; Mucus Urine Heavy /lpf; Squamous Epithelial Cell Urine Many /hpf (Few)
[2022-05-30 22:44] LABS: Add Urine Microscopic? YES
[2022-05-30 22:49] LABS: Anion Gap 12 mmol/L (8-16); Blood Urea Nitrogen 18 mg/dL (7-17); Calcium 9.3 mg/dL (8.4-10.2); Carbon Dioxide 27 mmol/L (22-30); Chloride 104 mmol/L (98-107); Estimated CRCL calculation 89 ml/min; Estimated Glomerular Filt Rate > 60; Glucose 100 mg/dL (65-110); Potassium 3.9 mmol/L (3.4-5.0); Sodium 143 mmol/L (137-145)
[2022-05-30 22:52] LABS: Basophils Percent Auto 0.4 % (0.2-1.2); Eosinophils Absolute Auto 0.1 K/mm3 (0-0.3); Eosinophils Percent Auto 1.8 % (0-4.4); Hematocrit 39.8 % (37.0-47.0); Hemoglobin 12.5 g/dL (12.0-15.0); Immature Granulocyte Absolute 0.02 K/mm3 (0.00-0.031); Immature Granulocyte Percent A 0.3 % (0-0.5); Lymphocytes Absolute Auto 2.85 K/mm3 (0.9-3.2); Lymphocytes Percent Auto 35.7 % (18.3-44.2); Mean Corpuscular HGB Conc 31.4 g/dl (32-36); Mean Corpuscular Hemoglobin 25.9 pg (26-34); Mean Corpuscular Volume 82.4 fl (80-100); Mean Platelet Volume 9.7 fl (7.4-10.4); Monocytes Absolute Auto 0.7 K/mm3 (0.1-0.6); Monocytes Percent Auto 9.1 % (2.6-8.5); Neutrophils Absolute Auto 4.2 K/mm3 (1.3-6.7); Neutrophils Percent Auto 52.7 % (45.5-73.1); Platelet Count Result 301 k/mm3 (150-375); Red Blood Count 4.83 M/mm3 (4.2-5.4); Red Cell Distribution Width 14.1 % (11.5-14.5)
[2022-05-31] MEDS: cefTRIAXone 1 GM VIAL 0.5 GM IM
[2022-05-31] MEDS: LIDOCAINE HCL 1% LOCAL INJ 20 ML VIAL IM (00:01)
[2022-05-31 00:02] VITALS: BP 113/86; PULSE 68; RESP 20; O2SAT 98
== END 2022-05-31 00:09 | disposition home or self-care (01) ==
PROVIDERS: Physician Assistant; Emergency Provider Emergency Medicine; PCP Nurse Practitioner Family
DX: N89.8 Other specified noninflammatory disorders of vagina (principal); F41.9 Anxiety disorder, unspecified; F32.9 Major depressive disorder, single episode, unspecified
CPT/HCPCS: 36415; 80048; 81001; 81025; 85025; 87086; 87088; 87491; 87591; 87808; 96372; 99284; J0696

== ENCOUNTER 2022-06-19 17:01 | Emergency (ER) | payer OTHER, SELFPAY ==
[2022-06-19 17:11] VITALS: BP 141/87; PULSE 67; RESP 20; TEMP 36.4; O2SAT 99
--- NOTE | 2022-06-19 17:48 | PC.NURSE ---
pt ambulated out of ED w/ daughter in private vehicle.
== END 2022-06-19 17:48 | disposition left against medical advice (07) ==
LOC: ANHED 18:16
PROVIDERS: PCP Nurse Practitioner Family
DX: R51.9 Headache, unspecified (principal)
CPT/HCPCS: 99199

== ENCOUNTER 2023-03-29 01:15 | Emergency (ER) | payer OTHER, SELFPAY ==
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
[2023-03-29 01:20] VITALS: BP 118/73; PULSE 72; RESP 16; TEMP 36.2; O2SAT 100
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
[2023-03-29 01:58] LABS: Basophils Percent Auto 0.2 % (0.2-1.2); Eosinophils Absolute Auto 0.2 K/mm3 (0-0.3); Eosinophils Percent Auto 1.6 % (0-4.4); Hematocrit 37.5 % (37.0-47.0); Hemoglobin 11.8 g/dL (12.0-15.0); Immature Granulocyte Absolute 0.03 K/mm3 (0.00-0.031); Immature Granulocyte Percent A 0.3 % (0-0.5); Lymphocytes Absolute Auto 2.35 K/mm3 (0.9-3.2); Lymphocytes Percent Auto 24.3 % (18.3-44.2); Mean Corpuscular HGB Conc 31.5 g/dl (32-36); Mean Corpuscular Hemoglobin 27.3 pg (26-34); Mean Corpuscular Volume 86.8 fl (80-100); Mean Platelet Volume 10.3 fl (7.4-10.4); Monocytes Absolute Auto 0.7 K/mm3 (0.1-0.6); Monocytes Percent Auto 7.3 % (2.6-8.5); Neutrophils Absolute Auto 6.4 K/mm3 (1.3-6.7); Neutrophils Percent Auto 66.3 % (45.5-73.1); Platelet Count Result 277 k/mm3 (150-375); Red Blood Count 4.32 M/mm3 (4.2-5.4); Red Cell Distribution Width 12.3 % (11.5-14.5); White Blood Count 9.7 K/mm3 (4.5-10.0)
[2023-03-29 02:13] LABS: Alanine Aminotransferase 15 U/L (6-35); Alkaline Phosphatase 55 U/L (38-126); Anion Gap 5 mmol/L (8-16); Aspartate Amino Transferase 21 U/L (14-36); Bilirubin,Total 0.2 mg/dL (0.2-1.3); Blood Urea Nitrogen 18 mg/dL (7-17); Calcium 8.6 mg/dL (8.4-10.2); Carbon Dioxide 30 mmol/L (22-30); Chloride 107 mmol/L (98-107); Estimated CRCL calculation 115 ml/min; Estimated Glomerular Filt Rate > 60; Glucose 109 mg/dL (65-110); Potassium 3.5 mmol/L (3.4-5.0); Sodium 142 mmol/L (137-145)
[2023-03-29 02:35] LABS: Appearance Urine Turbid (Clear); Bacteria Urine 4+ /hpf; Bilirubin Urine Negative (Negative); Blood Urine Negative (Negative); Color Urine Yellow (Yellow); Glucose Urine UA Negative (Negative); Ketones Urine Trace mg/dL (Negative); Leukocyte Esterase Ur Trace LEU/UL (Negative); Mucus Urine Present /lpf; Nitrate Urine Negative (Negative); Protein Urine 1+ mg/dL (Negative); Squamous Epithelial Cell Urine Many /hpf (Few)
[2023-03-29 02:36] LABS: Add Urine Microscopic? YES; Specific Grav Ur 1.037 (1.001-1.035)
[2023-03-29 03:41] VITALS: BP 110/74; PULSE 68; RESP 15; O2SAT 100
[2023-03-29 05:26] VITALS: BP 112/66; PULSE 70; RESP 15; O2SAT 98
== END 2023-03-29 05:27 | disposition home or self-care (01) ==
PROVIDERS: Emergency Provider Emergency Medicine; PCP Nurse Practitioner Family
DX: S10.93XA Contusion of unspecified part of neck, initial encounter (principal); N30.00 Acute cystitis without hematuria; J40 Bronchitis, not specified as acute or chronic; F17.290 Nicotine dependence, other tobacco product, uncomplicated; Y04.8XXA Assault by other bodily force, initial encounter
CPT/HCPCS: 36415; 70498; 80053; 81001; 81025; 85025; 87086; 87088; 99284; Q9967

== ENCOUNTER 2023-09-13 11:28 | Emergency (ER) | payer OTHER, SELFPAY ==
[2023-09-13 11:29] VITALS: BP 121/80; PULSE 73; RESP 17; TEMP 36.4; O2SAT 98
[2023-09-13 11:44] LABS: Basophils Percent Auto 0.3 % (0.2-1.2); Eosinophils Absolute Auto 0.1 K/mm3 (0-0.3); Eosinophils Percent Auto 0.6 % (0-4.4); Hematocrit 38.1 % (37.0-47.0); Hemoglobin 12.4 g/dL (12.0-15.0); Immature Granulocyte Absolute 0.04 K/mm3 (0.00-0.031); Immature Granulocyte Percent A 0.3 % (0-0.5); Lymphocytes Absolute Auto 2.29 K/mm3 (0.9-3.2); Lymphocytes Percent Auto 18.6 % (18.3-44.2); Mean Corpuscular HGB Conc 32.5 g/dl (32-36); Mean Corpuscular Hemoglobin 27.6 pg (26-34); Mean Corpuscular Volume 84.9 fl (80-100); Mean Platelet Volume 9.4 fl (7.4-10.4); Monocytes Percent Auto 8.4 % (2.6-8.5); Neutrophils Absolute Auto 8.9 K/mm3 (1.3-6.7); Neutrophils Percent Auto 71.8 % (45.5-73.1); Platelet Count Result 329 k/mm3 (150-375); Red Blood Count 4.49 M/mm3 (4.2-5.4); Red Cell Distribution Width 11.9 % (11.5-14.5); White Blood Count 12.3 K/mm3 (4.5-10.0)
[2023-09-13 11:49] LABS: Appearance Urine Cloudy (Clear); Bacteria Urine 1+ /hpf; Bilirubin Urine Negative (Negative); Blood Urine Negative (Negative); Color Urine Yellow (Yellow); Glucose Urine UA Negative (Negative); Ketones Urine 1+ mg/dL (Negative); Leukocyte Esterase Ur Trace LEU/UL (Negative); Nitrate Urine Negative (Negative); Protein Urine 1+ mg/dL (Negative); Specific Grav Ur 1.028 (1.001-1.035); Squamous Epithelial Cell Urine Moderate /hpf (Few); WBC Urine 0-5 /hpf; pH Urine 6.5 (5.0-9.0)
[2023-09-13 11:53] LABS: Add Urine Microscopic? YES; Alanine Aminotransferase 23 U/L (6-35); Albumin Level 4.7 g/dL (3.5-5.1); Alkaline Phosphatase 63 U/L (38-126); Anion Gap 13 mmol/L (8-16); Aspartate Amino Transferase 42 U/L (14-36); Bilirubin,Total 0.5 mg/dL (0.2-1.3); Blood Urea Nitrogen 13 mg/dL (7-17); Calcium 9.7 mg/dL (8.4-10.2); Carbon Dioxide 25 mmol/L (22-30); Chloride 101 mmol/L (98-107); Estimated CRCL calculation 130 ml/min; Estimated Glomerular Filt Rate > 60; Glucose 90 mg/dL (65-110); Lipase 79 U/L (23-300); Potassium 3.5 mmol/L (3.4-5.0); Sodium 139 mmol/L (137-145)
--- NOTE | 2023-09-13 12:25 | ED.NAVMDI ---
HPI - Nausea/Vomiting/Diarrhea General Chief complaint: Nausea/Vomiting/Diarrhea Stated complaint: 8 weeks preg- N/V Time Seen by Provider: 09/13/23 12:22 Source: patient Mode of arrival: ambulatory Limitations: no limitations History of Present Illness HPI Narrative: 23-year-old female presents to the ED with nausea and vomiting started since she been diagnosed of 8 weeks ago. Patient is 5 para 3 well. She denies any abdominal pain, fever, chills, diarrhea. Last cycle July 22, 2023. Related Data Home Medications Medication Instructions Recorded Confirmed Classic 1 tablet PO DAILY 12/17/21 02/14/22 Allergies Allergy/AdvReac Type Severity Reaction Status Date / Time terbutaline Allergy Rash Verified 09/13/23 11:31 Review of Systems Review of Systems: All systems reviewed & are unremarkable except as noted in HPI and below PMFSH Past Medical History Medical History Anxiety Depression Encounter for supervision of normal in multigravida in second trimester related condition in second trimester Viral meningitis Surgical History Surgical History No pertinent past surgical history Family History Family History Grandparent Diabetes mellitus Social History Social History Smoking status: Current every day smoker Tobacco type: e-cigarettes/vaping Second hand tobacco smoke exposure: No Alcohol intake: never Substance use: never Substance use type: marijuana Gender identity (if verbalized by the patient): Female Sexual Orientation (if Verbalized by the Patient): Straight or Heterosexual Spiritual care concerns: No Exam Narrative: General appearance: Well-developed, well-nourished Skin: Normal color Head: Normocephalic, nontraumatic Eyes: Clear conjunctiva ENT: Oropharynx normal, ears normal, nose normal Neck: Supple, nontender Chest and respiratory: Airway patent, no respiratory distress, no accessory muscle use Heart: Regular rate/rhythm Abdomen: Soft, nontender, no organomegaly, quiet bowel sounds Vascular: Normal peripheral pulses, normal capillary refill. Musculoskeletal: Normal range of motion, nontender back Neurologic: Alert and oriented ?3, SURFACE HYDROLOGIST is normal as tested, no gross motor deficit Course Reevaluation(s) Reevaluation #1: Feeling much better after 2 L of normal saline IV and 8 mg of Zofran IV. Date: 09/13/23 Time: 15:01 Vital Signs Vital signs: Vital Signs Temperature 36.4 C L 09/13/23 11:29 Pulse Rate 73 09/13/23 11:29 Respiratory Rate 17 09/13/23 11:29 Blood Pressure 121/80 09/13/23 11:29 Pulse Oximetry 98 09/13/23 11:29 Oxygen Delivery Room Air 09/13/23 11:29 Temperature 36.4 C L 09/13/23 11:29 Pulse Rate 73 09/13/23 11:29 Respiratory Rate 09/13/23 11:29 Blood Pressure 121/80 09/13/23 11:29 Pulse Oximetry 98 09/13/23 11:29 Oxygen Delivery Room Air 09/13/23 11:29 MDM - Nausea/Vomiting/Diarrhea MDM Narrative Medical decision making narrative: Patient is 8 weeks , presents with the above symptoms physical examination is unremarkable, vital signs on arrival are unremarkable Differential diagnosis: Hyperemesis gravidarum, electrolyte imbalance, dehydration, urinary tract infection Workup today showed unremarkable finding. In the ED patient received 2 L normal saline, 8 mg Zofran IV with remarkable improvement. the pt was discharged to home.the pt,s cond
[2023-09-13] MEDS: SODIUM CHLORIDE 0.9% IV 1,000 ML 999 ML IV CONT ×2 (12:54→12:57)
[2023-09-13] MEDS: ONDANSETRON INJ 4 MG/2 ML VIAL 8 MG IV PUSH (12:54)
[2023-09-13 14:05] VITALS: BP 129/76; PULSE 64; RESP 15; O2SAT 100
[2023-09-13 15:04] VITALS: BP 122/79; PULSE 58; RESP 17; O2SAT 100
== END 2023-09-13 15:05 | disposition home or self-care (01) ==
PROVIDERS: General Practice; Emergency Provider Emergency Medicine
DX: O21.0 Mild hyperemesis gravidarum (principal); F17.290 Nicotine dependence, other tobacco product, uncomplicated; Z3A.08 8 weeks gestation of pregnancy
CPT/HCPCS: 36415; 80053; 81001; 81025; 83690; 84702; 85025; 96361; 96374; 99284; J2405; J7030

== ENCOUNTER 2024-02-14 15:29 | Outpatient (CLI) | payer OTHER, SELFPAY ==
[2024-02-14 16:27] VITALS: BP 112/55; PULSE 97
[2024-02-14 16:30] VITALS: BP 106/64; PULSE 103
[2024-02-14 16:37] VITALS: BP 106/64; PULSE 103
--- NOTE | 2024-02-14 16:59 | PC.NURSE ---
1650: Patient called Nurse into the room to tell her she needs to leave AMA due to child advocate issues. 1659: RN phoned CNM to tell her patient left AMA before her ultrasound for BPP and ROSA were completed.
== END 2024-02-14 16:55 | disposition home or self-care (01) ==
LOC: ANHOBOP 15:46 → ANHOBPP 15:49
PROVIDERS: Visit Provider Advanced Practice Midwife
DX: O41.90X0 Disorder of amniotic fluid and membranes, unspecified, unspecified trimester, not applicable or unspecified (principal); Z3A.00 Weeks of gestation of pregnancy not specified
CPT/HCPCS: 59025; 99199

== ENCOUNTER 2024-03-28 13:52 | Outpatient (RCR) | payer OTHER, SELFPAY ==
[2024-03-28 14:47] LABS: Hematocrit 32.9 % (37.0-47.0); Hemoglobin 10.6 g/dL (12.0-15.0); Mean Corpuscular HGB Conc 32.2 g/dl (32-36); Mean Corpuscular Hemoglobin 27.5 pg (26-34); Mean Corpuscular Volume 85.2 fl (80-100); Mean Platelet Volume 10.2 fl (7.4-10.4); Platelet Count Result 311 k/mm3 (150-375); Red Blood Count 3.86 M/mm3 (4.2-5.4); Red Cell Distribution Width 13.7 % (11.5-14.5); White Blood Count 11.9 K/mm3 (4.5-10.0)
[2024-03-28 15:01] VITALS: BP 102/64
[2024-03-28 15:03] LABS: Alanine Aminotransferase 11 U/L (6-35); Albumin Level 3.4 g/dL (3.5-5.1); Alkaline Phosphatase 182 U/L (38-126); Anion Gap 6 mmol/L (4-12); Aspartate Amino Transferase 19 U/L (14-36); Bilirubin,Total 0.3 mg/dL (0.2-1.3); Blood Urea Nitrogen 8 mg/dL (7-17); Calcium 9.1 mg/dL (8.4-10.2); Carbon Dioxide 21 mmol/L (22-30); Chloride 108 mmol/L (98-107); Estimated Glomerular Filt Rate > 60; Glucose 117 mg/dL (65-110); Potassium 3.5 mmol/L (3.4-5.0); Sodium 135 mmol/L (137-145)
[2024-04-02 23:53] LABS: Chenodeoxycholic Acid <0.5 umol/L (< OR = 3.9); Cholic Acid <0.5 umol/L (< OR = 2.8); Deoxycholic Acid <0.5 umol/L (< OR = 2.3); Total Bile Acids <1.5 umol/L (< OR = 8.3)
== END 2024-04-13 08:23 | disposition home or self-care (01) ==
LOC: ANHOBOP 13:52
PROVIDERS: Obstetrics & Gynecology; Visit Provider Advanced Practice Midwife
DX: O26.893 Other specified pregnancy related conditions, third trimester (principal); L29.9 Pruritus, unspecified; Z3A.37 37 weeks gestation of pregnancy
CPT/HCPCS: 36415; 59025; 80053; 82542; 85027

== ENCOUNTER 2024-04-10 00:01 | Inpatient (IN) | payer OTHER, SELFPAY ==
[2024-04-10] VITALS (132 sets, daily range): BP systolic 92–140; BP diastolic 49–90; PULSE 73–177; RESP 16–18; TEMP 36.3–36.8; O2SAT 92–100; BMI 27.4
[2024-04-10 00:28] LABS: Basophils Percent Auto 0.3 % (0.2-1.2); Eosinophils Absolute Auto 0.2 K/mm3 (0-0.3); Eosinophils Percent Auto 1.1 % (0-4.4); Hematocrit 34.2 % (37.0-47.0); Hemoglobin 10.8 g/dL (12.0-15.0); Immature Granulocyte Absolute 0.24 K/mm3 (0.00-0.031); Immature Granulocyte Percent A 1.8 % (0-0.5); Lymphocytes Absolute Auto 2.74 K/mm3 (0.9-3.2); Lymphocytes Percent Auto 20.2 % (18.3-44.2); Mean Corpuscular HGB Conc 31.6 g/dl (32-36); Mean Corpuscular Hemoglobin 26.6 pg (26-34); Mean Corpuscular Volume 84.2 fl (80-100); Mean Platelet Volume 9.9 fl (7.4-10.4); Monocytes Absolute Auto 1.5 K/mm3 (0.1-0.6); Monocytes Percent Auto 11.4 % (2.6-8.5); Neutrophils Absolute Auto 8.8 K/mm3 (1.3-6.7); Neutrophils Percent Auto 65.2 % (45.5-73.1); Platelet Count Result 314 k/mm3 (150-375); Red Blood Count 4.06 M/mm3 (4.2-5.4); Red Cell Distribution Width 13.8 % (11.5-14.5); White Blood Count 13.5 K/mm3 (4.5-10.0)
[2024-04-10] MEDS: LACTATED RINGERS 1,000 ML 125 ML IV CONT ×2 (00:47→09:54)
[2024-04-10] MEDS: OXYTOCIN 30 UNITS/NS 500 ML 30 UNITS/500 ML BAG IV CONT (00:49)
[2024-04-10] MEDS: miSOPROStol 25 MCG TABLET 50 MCG PO (01:10)
--- NOTE | 2024-04-10 01:17 | LDADM ---
This patient, Yuni Mejia, was admitted to Labor/Delivery/Recovery 105 on 04/10/24 at 00:01. Plans for labor, pain management and were discussed with patient. Patient/family oriented to hospital policies and general routines including ID bracelet, bed and alarms, visiting hours, pain management, procedures, bathroom and other care routines, personal items, smoking policy, room service/diet and guest tray routines, security routines, and visiting hours. Patient/Family are encouraged to report perceived risks to care and to ask questions if they do not understand what they are told or what they should do. See OBIX for further documentation.
[2024-04-10 01:22] LABS: HIV 1/2 Ab P24 Ag Result Negative (Negative)
--- NOTE | 2024-04-10 07:36 | WPDOBADMIT ---
Obstetrics - Admit Note Admission Note: record reviewed. No pertinent additions to the history and/or any subsequent changes in the physical findings that are not consistent with the expected course of the were found. Additions to the history and/or subsequent changes in the physical findings follow. admit for elective IOL, hx anxiety, pp hemorrhage with first delivery, SVE 4/50/-2 AROM moderate amount of clear, odorless fluid, anticipate vaginal delivery
--- NOTE | 2024-04-10 09:58 | WPDANESEPP ---
Anes - Eval Pre Procedure Procedure: Labor Epidural Date/Time: 04/10/24 09:58 Surgeon: Naima Preop Diagnosis: Pain during labor Pre Op Diagnosis: IOL Patient Data Age: 24 Gender: F Height: 1.63 m Weight: 72.5 kg Last Vital Signs Temp 36.6 C 04/10/24 09:04 Pulse 88 04/10/24 09:45 BP 118/76 04/10/24 09:45 Pulse Ox 98 04/10/24 09:53 O2 Del Method Room Air 04/10/24 01:13 Allergies Allergy/AdvReac Type Severity Reaction Status Date / Time terbutaline Allergy Severe Anaphylactic Verified 04/02/24 12:53 Shock Home Medications Medication Instructions Recorded Confirmed Type Classic 2 tablet PO DAILY 12/17/21 04/10/24 History Laboratory Tests 04/10/24 00:23 WBC 13.5 H K/mm3 (4.5-10.0) RBC 4.06 L M/mm3 (4.2-5.4) Hgb 10.8 L g/dL (12.0-15.0) Hct 34.2 L % (37.0-47.0) MCV 84.2 fl (80-100) MCH 26.6 pg (26-34) MCHC 31.6 L g/dl (32-36) RDW 13.8 % (11.5-14.5) Plt Count 314 k/mm3 (150-375) MPV 9.9 fl (7.4-10.4) Immature Gran % (Auto) 1.8 H % (0-0.5) Neut % (Auto) 65.2 % (45.5-73.1) Lymph % (Auto) 20.2 % (18.3-44.2) Cherry % (Auto) 11.4 H % (2.6-8.5) Eos % (Auto) 1.1 % (0-4.4) Baso % (Auto) 0.3 % (0.2-1.2) Lymph # (Auto) 2.74 K/mm3 (0.9-3.2) Cherry # (Auto) 1.5 H K/mm3 (0.1-0.6) Eos # (Auto) 0.2 K/mm3 (0-0.3) Baso # (Auto) 0.0 K/mm3 (0.0-0.1) Abs Immat Gran (auto) 0.24 H K/mm3 (0.00-0.031) Absolute Neuts (auto) 8.8 H K/mm3 (1.3-6.7) Absolute Nucleated RBC 0.000 K/mm3 (0.0-0.012) Nucleated RBC % 0.0 % (0.0-0.2) RPR Pending HIV 1&2 Ab/P24 Ag 4thGn Negative (Negative) Blood Type B Positive Antibody Screen Negative Patient hx anesthesia problems: none Family hx anesthesia problems: none Results Review: All pre-operative results and documents have been reviewed as part of the pre-operative evaluation. [facility] Past Medical History Medical History Anxiety Depression Encounter for supervision of normal in multigravida in second trimester related condition in second trimester Viral meningitis Surgical History Surgical History No pertinent past surgical history Family History Family History Grandparent Diabetes mellitus Social History Social History Smoking status: Never smoker Tobacco type: e-cigarettes/vaping Second hand tobacco smoke exposure: No Alcohol intake: never Substance use: never Substance use type: marijuana Do You Feel Safe in your Home?: Yes Lack of Transportation: No Lack of Food: Never True Current Housing: I Have Housing Concerned About Future Housing: No Difficulty Paying Gas/Electric Bills: No Difficulty Paying for Meds: No Currently Unemployed: No Education: High School Diploma/GED Difficulty w/ Childcare or Family Care: No Gender identity (if verbalized by the patient): Female Sexual Orientation (if Verbalized by the Patient): Straight or Heterosexual Spiritual care concerns: No Exam Day of Procedure 04/10/24 09:58 Patient weight: normal Heart: regular rate and rhythm Lungs: normal air movement Airway: Mallampati scale class II Neurological: alert and oriented
--- NOTE | 2024-04-10 12:16 | PM.OBPRVD ---
OB - Vaginal Delivery Note Procedure Delivery date: 04/10/24 Events: Other (limited care) Induction method: AROM, Per Misoprostol Protocol and Per Pitocin Protocol Delivery monitor: External FHT and External Uterine Route of delivery: Episiotomy description: None Laceration Description: None Specimen: No Quantitative Blood Loss (ml): 80 Anesthesia type: Epidural Disposition: Floor Baby Date of : 04/10/24 Time of : 12:05 Weeks of gestation at delivery: 39 Infant gender: Male Weight (pounds): 7 Weight (ounces): 8 presentation: vertex position: Left Occiput Anterior Placenta delivery description: Spontaneous Cord Vessel Description: 3 Vessels and Delayed Cord Clamping score one minute: 9 score five minutes: 9 Narrative: mother and baby in stable condition
[2024-04-10] MEDS: OXYTOCIN 30 UNITS/NS 500 ML 30 UNITS/500 ML BAG 125 UNITS IV CONT (12:40)
[2024-04-10] MEDS: WITCH HAZEL 40 PADS 1 PAD TOPICAL (13:04)
[2024-04-10] MEDS: BENZOCAINE 20% AER SPR (*SP) 56 GM CAN 1 SPRAY TOPICAL (13:04)
[2024-04-10] MEDS: FLUCONAZOLE 150 MG TABLET PO (13:04)
[2024-04-10] MEDS: ACETAMINOPHEN 325 MG TABLET 650 MG PO ×2 (13:04→23:28)
[2024-04-10] MEDS: IBUPROFEN 600 MG TABLET PO ×2 (13:05→23:28)
--- NOTE | 2024-04-10 15:46 | OBPPTRN ---
1455-Patient transferred to post room #276 via wheelchair. Support person present. Oriented to unit, room, information board, rooming in, admission packet and security measures. Patient verbalizes understanding.
[2024-04-10 17:01] LABS: Rapid Plasma Reagin Non-Reactive (NonReactive)
[2024-04-10] MEDS: DOCUSATE SODIUM 100 MG CAPSULE PO (21:24)
[2024-04-11] VITALS: BP 118/69; PULSE 76; RESP 18; TEMP 36.4; O2SAT 98
[2024-04-11] MEDS: DOCUSATE SODIUM 100 MG CAPSULE PO (08:13)
[2024-04-11] MEDS: ACETAMINOPHEN 325 MG TABLET 650 MG PO (08:13)
[2024-04-11] MEDS: POLYSACCHARIDE IRON COMPLEX 150 MG CAPSULE PO (08:13)
[2024-04-11 08:15] VITALS: BP 101/71; PULSE 76; RESP 16; TEMP 36.4; O2SAT 98
--- NOTE | 2024-04-11 08:15 | PM.OBPNVD ---
OB - PN: Subj Subjective Date/time seen: 04/11/24 08:15 Interval history: pp day 1 doing well no complaints OB - PN: Obj Data Labs 04/11/24 04:08 Labs: Laboratory Results - last 24 hr 04/10/24 04/11/24 00:23 04:08 Hgb 9.0 L Hct 29.0 L RPR Non-reactive OB - PN A/P Plan day: 1 Plan: routine care Time Spent With Patient Time: Total time spent is greater than 50% in coordination of care (as documented) at patient's floor/unit and/or counseling patient: Review of Systems Review of Systems: All systems reviewed & are unremarkable except as noted in HPI and below Exam Const: General: cooperative and healthy appearing Chest: Chest palpation & inspection: normal inspection of the chest Cardio: Rate: regular rate Rhythm: regular rhythm Back/Spine/Pelvis: Back: no CVA tenderness Skin: General skin exam: normal color Neuro: General: patient oriented x3 Extrem: Right lower extremity: normal to inspection Left lower extremity: normal to inspection Psych: Appearance: grossly normal
--- NOTE | 2024-04-11 10:31 | WPDANLDPN2 ---
Anes-Prog Note L&D Date/Time: 04/11/24 10:31 Comfortable throughout: labor and delivery Neuraxial method: epidural Epidural/Spinal procedure site: clean & non-tender Neuro status: Neuro function grossly intact. Cardiovascular status: normal Respiratory status: normal Airway patency: baseline Mental status: baseline Post-Op hydration status: normal Vital Signs: Last Vital Signs Temp 36.4 C L 04/11/24 00:00 Pulse 76 04/11/24 00:00 Resp 18 04/11/24 00:00 BP 118/69 04/11/24 00:00 Pulse Ox 98 04/11/24 00:00 O2 Del Method Room Air 04/10/24 20:00 Pain score (VAS): 2/10 I/O: Intake & Output 04/10/24 04/11/24 04/11/24 23:59 07:59 15:59 Intake Total 250 Balance 250 Post-procedural complaints: none Patient feedback: Patient satisfied with anesthetic care.
[2024-04-11] MEDS: IBUPROFEN 600 MG TABLET PO (10:54)
--- NOTE | 2024-04-11 11:00 | PC.NURSE ---
Patient viewed the discharge video Mother & Baby Care, The First Two Weeks online. Patient was given the opportunity and encouraged to ask questions. Patient verbalized understanding of information shared and has been given the mother/baby guide for home reference.
[2024-04-11 12:30] VITALS: BP 102/66; PULSE 70; RESP 16; TEMP 36.7; O2SAT 100
--- NOTE | 2024-04-13 17:54 | PM.OBDSVD ---
DS: Admitting Diagnosis Discharge Date 04/11/24 Admitting Diagnosis IOL OB - DS: Summary OB Procedures : None OB Procedures Intrapartum: Spontaneous Vag Delivery OB Procedures: : None Peripartum Data Laceration Description: None Episiotomy description: None Time Spent with Patient Time attestation: Total time spent providing and/or coordinating discharge services: Discharge Plan Discharge Attending physician on discharge: Shawn Mcginnis Consulting providers: Derrek Dorsey Discharging Clinician: Anju Mcnamara Patient Disposition: Home, Self-Care Activity: pelvic rest Diet: regular Discharge Instructions: Education: Mom and Baby Guide Given to: Mother Follow-Up: Call your delivering provider's office for an appointment to be seen in: 4 Weeks Mom and baby should come to the [facility] for the follow-up appointment. Appointment Date/Time: April 13, 2024 at 8:00 am What to expect at your follow-up visit: Physical Assessment Call [phone] if you are unable to keep your appointment time. BREAST CARE: * Wear a snug supportive bra. * Bottle Feeding: * May apply ice packs PERINEAL CARE: * Until bleeding stops, use your deisy bottle after urinating * Change your pad frequently throughout the day * You may take sitz baths several times a day (fill your bathtub with warm water and soak for 20 minutes.) Do NOT bathe in the water * No tub baths until seen by your physician - You may shower ACTIVITY: * Rest as much as possible. * Do not exercise or lift anything heavier than your baby (such as laundry or other children.) * Avoid stairs or driving as much as possible. * Do not put anything into the vagina. No douching, tampons, or sexual activity until seen by physician. NOTIFY PHYSICIAN IF YOU HAVE ANY QUESTIONS OR IF ANY OF THE FOLLOWING SYMPTOMS OCCUR: * If your perineum becomes red, swollen, or more painful than what you have experienced in the hospital. * If your vaginal bleeding becomes foul smelling. * If your vaginal bleeding becomes more heavy than a period or if your bleeding changes from pink to bright red. However, you may pass an occasional walnut-sized clot once or twice for the first week . * If you experience a sharp, shooting pain in you calves. * If you discover a hard, reddened area on your breast or if you experience flu-like symptoms. DIET: * Eat regular, well-balanced meals. * Drink plenty of fluids daily. Patient Instructions: Depression (DC), Vaginal Delivery (DC) Stand Alone Forms: General Discharge Information Follow-up/Referrals: Anju Mcnamara CNM [Certified Nurse Air Conditioning Sheet Metal Installer] - 4 Weeks (1 week for nexplanon control) Discharge Medications: New polysaccharide iron complex 150 mg iron Capsule 150 mg PO BIDWM Qty: 60 0RF ibuprofen 600 mg Tablet 600 mg PO Q6H PRN (Reason: Cramping) Qty: 30 0RF Continued Classic 2 tablet PO DAILY Date of admission: 04/10/24 00:01 Primary Care Provider: PHYSICIAN,EMS COORDINATOR Admitting Provider: Shawn Mcginnis Attending physician on admission: Anju Mcnamara Condition: Stable
== END 2024-04-11 14:42 | disposition home or self-care (01) | DRG 560 ==
LOC: ANHLDR 00:03 → ANHOB2 15:34
PROVIDERS: Admitting Provider Obstetrics & Gynecology; Visit Provider Advanced Practice Midwife
DX: O99.892 Other specified diseases and conditions complicating childbirth (principal); Z37.0 Single live birth; Z3A.39 39 weeks gestation of pregnancy; Z87.59 Personal history of other complications of pregnancy, childbirth and the puerperium
CPT/HCPCS: 36415; 85014; 85018; 85025; 86592; 86703; 86850; 86900; 86901; A9270; G0432; J2590; J2795; J7120

== ENCOUNTER 2024-05-15 10:42 | Emergency (ER) | payer OTHER, SELFPAY ==
--- NOTE | ~2024-05-15 | XR_ITS ---
EXAMINATION: XR chest 2V DATE: 05/15/2024 11:52 INDICATION: Cough TECHNIQUE: PA and lateral views of the chest were obtained. COMPARISON: Chest radiograph dated 05/20/2023 FINDINGS: The lungs remain clear with no focal airspace opacities, pulmonary edema, pleural effusion or pneumot horax. The cardiomediastinal silhouette is normal. Visualized bones and soft tissues are unremarkable . IMPRESSION: 1. No acute cardiopulmonary disease. Reviewed, dictated and finalized at location A.
[2024-05-15 10:50] VITALS: BP 107/75; PULSE 89; RESP 18; TEMP 36.9; O2SAT 98
--- NOTE | 2024-05-15 11:46 | ED.GENADULT ---
HPI - General Adult General Chief complaint: Upper Respiratory Infection Stated complaint: Sinus Source: patient Mode of arrival: ambulatory Limitations: no limitations History of Present Illness HPI narrative: Patient presents for evaluation of sick symptoms for last week. Symptoms include cough, postnasal drainage, subjective fever and chills. She denies any nausea, vomiting or diarrhea. She states she went to the emergency department to 3 days ago for dizziness. She was told that her blood pressure was elevated and was admitted to the hospital. When I asked her what her blood pressure reading was, she said 140/80. She states she went to urgent care in [place] yesterday and had negative strep, COVID, flu and RSV testing. She smokes approximately a quarter pack per day. She has been taking cetirizine and Flonase for her symptoms. Related Data Home Medications Medication Instructions Recorded Confirmed cetirizine 10 mg tablet 10 mg PO DAILY 05/15/24 05/15/24 fluticasone propionate 50 2 spray intranasal DIRECTED 05/15/24 05/15/24 mcg/actuation nasal spray,suspension pantoprazole 40 mg tablet,delayed 40 mg PO DAILY 05/15/24 05/15/24 release Allergies Allergy/AdvReac Type Severity Reaction Status Date / Time terbutaline Allergy Severe Anaphylactic Verified 05/15/24 10:47 Shock amoxicillin [From Amoxil] AdvReac Palpitation Verified 05/15/24 10:56 s Review of Systems Review of Systems: CONSTITUTIONAL: reports fever and chills. EYES: Denies visual changes, redness, or discharge. ENT: Reports postnasal drainage. CARDIOVASCULAR: Denies chest pain, palpitations, or edema. RESPIRATORY: Reports cough. Denies shortness of breath. GASTROINTESTINAL: Denies abdominal pain, nausea, vomiting, or diarrhea. GENITOURINARY: Denies dysuria or hematuria. SKIN: Denies rash or itching. MUSCULOSKELETAL: Denies back pain, joint pain, or myalgia. NEUROLOGIC: Denies headache, numbness, dizziness, or weakness. PSYCHIATRIC: Denies anxiety or depression. [facility] Past Medical History Medical History Anxiety Depression Encounter for supervision of normal in multigravida in second trimester related condition in second trimester Viral meningitis Surgical History Surgical History No pertinent past surgical history Family History Family History Grandparent Diabetes mellitus Social History Social History Smoking packs per day: 0.25 Smoking cigarettes per day: 5.0 Smoking status: Current every day smoker Tobacco type: e-cigarettes/vaping Second hand tobacco smoke exposure: No Alcohol intake: never Substance use: never Substance use type: marijuana Do You Feel Safe in your Home?: Yes Lack of Transportation: No Lack of Food: Never True Current Housing: I Have Housing Concerned About Future Housing: No Difficulty Paying Gas/Electric Bills: No Difficulty Paying for Meds: No Currently Unemployed: No Education: High School Diploma/GED Difficulty w/ Childcare or Family Care: No Gender identity (if verbalized by the patient): Female Sexual Orientation (if Verbalized by the Patient): Straight or Heterosexual Spiritual care concerns: No Exam Narrative: GENERAL: Well-appearing, well-nourished, and in no acute distress. HEAD: Normocephalic, atraumatic. EYES: PERRLA and EOMI. ENT: Nares clear, no rhinorrhea or epistaxis. Mucous membranes moist. Oropharynx without tonsillar hypertrophy exudate or other lesions. Bilateral TMs pearly davis nonbulging NECK: Supple. No adenopathy or masses. No carotid bruits or JVD CHEST: Clear to auscultation. No respiratory distress. No wheezes rales or rhonchi HEART: Reg
== END 2024-05-15 12:20 | disposition home or self-care (01) ==
PROVIDERS: Emergency Provider Nurse Practitioner
DX: J40 Bronchitis, not specified as acute or chronic (principal); F17.290 Nicotine dependence, other tobacco product, uncomplicated; F17.200 Nicotine dependence, unspecified, uncomplicated; Z86.61 Personal history of infections of the central nervous system
CPT/HCPCS: 71046; 99213; G0463

== ENCOUNTER 2024-09-20 20:50 | Emergency (ER) | payer OTHER, SELFPAY ==
--- NOTE | 2024-09-20 20:55 | ECG_ITS ---
Test Date: 2024-09-20 21:01:38 Measurements Intervals [place] Rate: 70 P: 73 [place]: 137 QRS: 28 QRSD: 77 T: -7 QT: 300 QTc: 324 Interpretive Statements SINUS RHYTHM NONSPECIFIC ST-T WAVE ABNORMALITY- INFERIOR LEADS BASELINE ARTIFACT- I, II, AVR, AVL, AVF, V1 BORDERLINE ECG No previous ECG available for comparison Electronically Signed On 09-21-2024 06:18:10 FORENSIC ENGINEER by Vinicio Martínez D.O.
[2024-09-20 20:56] VITALS: BP 131/73; PULSE 69; RESP 18; TEMP 36.3; O2SAT 99
--- NOTE | 2024-09-20 21:11 | PC.NURSE ---
pt to triage desk states, your phone don't work. I need to go out to the parking lot to see if they are here . this rn explained the risks of leaving the waiting room. pt ambulated with a steady unassisted gait towards the exit of the ed with no visible distress.
[2024-09-20 21:15] LABS: Basophils Percent Auto 0.5 % (0.2-1.2); Eosinophils Absolute Auto 0.2 K/mm3 (0-0.3); Eosinophils Percent Auto 2.7 % (0-4.4); Hemoglobin 12.2 g/dL (12.0-15.0); Immature Granulocyte Absolute 0.03 K/mm3 (0.00-0.031); Immature Granulocyte Percent A 0.4 % (0-0.5); Lymphocytes Absolute Auto 2.72 K/mm3 (0.9-3.2); Lymphocytes Percent Auto 33.5 % (18.3-44.2); Mean Corpuscular HGB Conc 32.1 g/dl (32-36); Mean Corpuscular Hemoglobin 27.5 pg (26-34); Mean Corpuscular Volume 85.8 fl (80-100); Mean Platelet Volume 9.6 fl (7.4-10.4); Monocytes Absolute Auto 0.7 K/mm3 (0.1-0.6); Neutrophils Absolute Auto 4.4 K/mm3 (1.3-6.7); Neutrophils Percent Auto 53.9 % (45.5-73.1); Platelet Count Result 309 k/mm3 (150-375); Red Blood Count 4.43 M/mm3 (4.2-5.4); Red Cell Distribution Width 12.4 % (11.5-14.5); White Blood Count 8.1 K/mm3 (4.5-10.0)
[2024-09-20 21:26] LABS: Alanine Aminotransferase 53 U/L (6-35); Albumin Level 4.5 g/dL (3.5-5.1); Alkaline Phosphatase 67 U/L (38-126); Anion Gap 6 mmol/L (4-12); Aspartate Amino Transferase 34 U/L (14-36); Bilirubin,Total 0.4 mg/dL (0.2-1.3); Blood Urea Nitrogen 15 mg/dL (7-17); Calcium 9.2 mg/dL (8.4-10.2); Carbon Dioxide 29 mmol/L (22-30); Chloride 104 mmol/L (98-107); Estimated CRCL calculation 95 ml/min; Estimated Glomerular Filt Rate > 60; Glucose 101 mg/dL (65-110); Lipase 81 U/L (23-300); Potassium 3.7 mmol/L (3.4-5.0); Sodium 139 mmol/L (137-145)
[2024-09-20 21:34] LABS: Prothrombin Time 13.3 Seconds (11.1-14.7)
[2024-09-20 21:35] LABS: Partial Thromboplastin Time 30.2 Seconds (22.3-36.8)
[2024-09-20 21:37] LABS: Troponin I < 0.012 ng/mL (0.000-0.034)
== END 2024-09-20 21:11 | disposition left against medical advice (07) ==
PROVIDERS: Emergency Provider Student in an Organized Health Care Education/Training Program
DX: R07.9 Chest pain, unspecified (principal)
CPT/HCPCS: 36415; 80053; 83690; 84484; 85025; 85610; 85730; 93005; 99199

== ENCOUNTER 2025-02-04 09:40 | Observation (INO) | payer OTHER, SELFPAY ==
--- NOTE | 2025-02-04 10:04 | OBADM ---
This patient, Yuni Mejia, admitted to the OB room [facility] for observation. Patient/family oriented to hospital policies and general routines including ID bracelet, bed and alarms, visiting hours, pain management, procedures, bathroom and other care routines, personal items, smoking policy, room service/diet, and visiting hours. Patient/Family are encouraged to report perceived risks to care and to ask questions if they do not understand what they are told or what they should do.
--- OUTSIDE RECORDS SUMMARY | 2025-02-04 10:27 | XMS_ITS | Clinical Summary ---
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 01/08/20 25 Active SYMBICORT 80-4.5 MCG/ACT inhaler 2 puffs 2 (two) times daily. 01/08/20 25 Active vitamin, low iron, 27-0.8 mg tablet Take 1 tablet by mouth daily. Active ondansetron (ZOFRAN-ODT) 4 MG disintegrating tablet Take 1 tablet (4 mg total) by mouth every 8 (eight) hours as needed for Nausea. 20 tablet 01/25/20 25 Active hydrOXYzine (VISTARIL) 25 MG capsule Take 1 capsule (25 mg total) by mouth 3 (three) times daily as needed. 09/10/20 24 025 Discontinued cephALEXin (KEFLEX) 500 MG capsule Take 1 capsule (500 mg total) by mouth 2 (two) times daily for 7 days. 14 capsule 01/25/20 25 025 Active Problems Problem Noted Date Diagnosed Date ([facility]/HCC) 05/13/2024 Headache 05/13/2024 Comments Yes Encounters Date Type Department Care Team Description 01/24/2025 12:23 PM CDT - 01/24/2025 2:54 PM CDT [facility] [address] [place] [address] [place] [address] Salty Potts MD Vomiting ; Palpitations Discharge Disposition: Home or Self Care (Routine Discharge) 01/24/2025 Travel 01/21/2025 Telephone [facility] [address] [place] [address] Steph Hightower MD Stress Test 01/21/2025 Scan [facility] [address] [place] [id number] Scanned, Doc Pccl Stress Test (SCAN) 01/18/2025 8:06 AM CDT - 01/18/2025 11:59 PM CDT Hospital Encounter [facility] [address] [place] [address] [place] [address] Sami Mehta, Discharge Disposition: Home or Self Care (Routine Discharge) 01/17/2025 3:47 PM CDT - 01/17/2025 9:05 PM CDT [facility] [place] [address] Sami Mehta, Leg Pain Discharge Disposition: Home or Self Care (Routine Discharge) 01/17/2025 Travel 01/14/2025 1:05 PM CDT - 01/14/2025 11:59 PM CDT Hospital Encounter [facility] [place] [address] Shawn Mcginnis MD Discharge Disposition: Home or Self Care (Routine Discharge) 01/14/2025 Orders Only [place] [address] [place] [address] Shawn Mcginnis MD 01/13/2025 2:01 PM CDT - 01/13/2025 6:59 PM CDT [facility] [place] [address] Kaitlin Colon MD Complications Discharge Disposition: Home or Self Care (Routine Discharge) 01/13/2025 Travel 12/01/2024 7:33 PM VOICE INSTRUCTOR - 12/01/2024 9:34 PM VOICE INSTRUCTOR [facility] [address] [place] [address] Wayne Ledesma MD Body Aches; Cough Discharge Disposition: Home or Self Care (Routine Discharge) 12/01/2024 Travel from Last 3 Months Family History Medical History Relation Comments Hypertension Mother Heart Attack Paternal Grandfather Stroke Paternal Grandfather Relation Status Comments Mother Paternal Grandfather Social History Tobacco Use Types Packs/Day Years Used Date Smoking Tobacco: Former Cigarettes Smokeless Tobacco: Never Tobacco Cessation:Counseling Given: Not Answered Alcohol Use Standard Drinks/Week Comments Not Currently 0 (1 standard drink = 0.6 oz pur e alcohol) Humiliation, Afraid, Rape, and Kick questionnair e Answer Date Recorded Within the last year, have y ou been afraid of your partner or ex-partner? No 05/13/2024 Within the last year, have y ou been humiliated or emotionally abused in other ways by your partner or ex-partner? No Within the last year, have y ou been kicked, hit, slapped, or otherwise physically hurt by your partner or ex-partner? No 05/13/2024 Within the last year, have y ou been raped or forced to have any kind of sexual activity by your partner or ex-partner? No 05/13/2024 AUDIT-C Answer Date Recorded Q1: How often do you have a drink containing alcohol? Never 05/13/2024 Q2: How many drinks containi ng alcohol do you have on a typical day when you are drinking? Patient does not drink Q3: How often do you have si x or more drinks on one occasion? Never 05/13/2024 PHQ-2 Answer Date Recorded Patient Health Questionnaire-2 Score 0 05/13/2024 [facility] - Occupational Stress Questionnaire Answer Date Recorded Do you feel stress - tense, restless, nervous, or anxious, or unable to sleep at night because your mind is troubled all the time - these days? Not at all 05/13/2024 Hunger Vital Sign Answer Date Recorded Within the past 12 months, y ou worried that your food would run out before you got the money to buy more. Never true 05/13/20 24 Within the past 12 months, t he food you bought just didn't last and you didn't have money to get more. Never true 05/13/2024 Comments Yes Sex and Gender Information Value Date Recorded Sex Assigned at Female 05/13/2024 1:22 AM CDT Legal Sex Female 8:30 AM CDT Gender Identity Female 05/13/2024 1:22 AM CDT Sexual Orientation Straight 05/13/2024 1: 22 AM CDT Last Filed Vital Signs Vital Sign Reading Time Taken Comments Blood Pressure 109/69 01/24/2025 2:30 PM CDT Pulse 79 01/24/2025 2:40 PM CDT Temperature 36.7 C (98.1 F) 01/24/2025 12:31 PM CDT Respiratory Rate 16 01/24/2025 2:40 PM CDT Oxygen Saturation 100% 01/24/2025 2:50 PM CDT Inhaled Oxygen Concentration - - Weight 72.6 kg (160 lb) 01/24/2025 12:31 PM CDT Height 165.1 cm (5' 5 ) 01/24/2025 12:31 PM CDT Body Mass Index 26.63 01/24/2025 12:31 PM CDT Plan of Treatment Health Maintenance Due Date Last Done Comments Cervical Cancer Screening Pap Smear (Age 21 to 29) Every 3 Years 1999 Cervical Cancer Screening 1999 Annual Physical 2002 Hepatitis C 2017 HPV Vaccines (2 - 3-dose series) 02/02/2017 01/05/2017 DTaP, Tdap and Td Vaccines (7 - Td or Tdap) 06/21/2022 06/21/2012, 06/29/2004, 08/30/2000, Additional history exists COVID-19 Vaccine ( season) 2024 RSV Immunization or 60+ Years (1 - 1-dose 75+ series) 2074 Hepatitis B Vaccines Completed 07/29/2000, 04/18/2000, 1999, Additional history exists Meningococcal Vaccine Completed 01/05/2017, 012 Meningococcal B Vaccine Aged Out No l onger eligible based on patient's age to complete this topic Pneumococcal Vaccine: Pediatrics (0 to 5 Years) and At-Risk Patients (6 to 64 Years) Aged Out No longer eligible based on patient's age to complete this topic RSV Immunizations Under 20 Months Aged Out No longer eligible based on patient's age to complete this topic Procedures Procedure Name Priority Date/Time Associated Diagnosis Comments XR CHEST PORTABLE STAT 01/24/2025 1:4 8 PM CDT TEST URINE STAT 01/24/2025 1:20 PM CDT HC URINALYSIS AUTO W/MICRO STAT 01/24/2025 1:20 PM CDT LIPASE STAT 01/24/2025 1:06 PM CDT TROPONIN, QUANT STAT 01/24/2025 1:06 PM CDT COMPREHENSIVE METABOLIC PANEL STAT 01/24/2025 1:06 PM CDT CBC W/DIFF AUTOMATED STAT 01/24/2025 1:06 PM CDT ECG 12-LEAD Routine 01/24/2025 12:48 PM CDT STRESS TEST (SCAN ORDER) Routine 01/21/2025 USV AKOSUA DUPLEX LOW EXT ADAM Routine 01/18/2025 8:57 AM CDT Leg pain Elevated d-dimer TROPONIN, QUANT STAT 01/17/2025 7:45 PM CDT CTA CHEST PE PROTOCOL STAT 01/17/2025 7:29 PM CDT ECG 12-LEAD Routine 01/17/2025 6:36 PM CDT D-DIMER, QUANTITATIVE STAT 01/17/2025 5:50 PM CDT TROPONIN, QUANT STAT 01/17/2025 5:50 PM CDT COMPREHENSIVE METABOLIC PANEL STAT 01/17/2025 5:50 PM CDT CBC W/DIFF AUTOMATED STAT 01/17/2025 5:50 PM CDT HCG QUANT (SERUM)-CHORIONIC GONADOTROPIN Routine 01/14/2025 1:15 PM CDT Amenorrhea Encounter for test, result positive (HHS/HCC) US OB TRANSVAG STAT 01/13/2025 6:37 PM CDT TYPE & SCREEN STAT 01/13/2025 4:02 PM CDT URINE BACTERIA CULTURE STAT 3:43 PM CDT HC URINALYSIS AUTO W/MICRO STAT 01/13/2025 3:43 PM CDT BASIC METABOLIC PANEL STAT 01/13/2025 3:23 PM CDT HCG QUANT (SERUM)-CHORIONIC GONADOTROPIN STAT 01/13/2025 3:23 PM CDT CBC W/DIFF AUTOMATED STAT 01/13/2025 3:23 PM CDT INFLUENZA A & B STAT 12/01/2024 7:50 PM VOICE INSTRUCTOR CORONAVIRUS (COVID-19) ANTIGEN STAT 12/01/2024 7:50 PM VOICE INSTRUCTOR from Last 3 Months Results * XR CHEST PORTABLE (01/24/2025 1:48 PM CDT) Anatomical Region Laterality Modality Chest Radiographic Jazmin ging 01/24/2025 1:50 PM CDT Impressions 01/24/2025 1:51 PM CDT IMPRESSION: No significant change. No acute disease. Referred By: Interpreted By: Paulino Mitchell MD, 01/24/2025 1:50 PM Narrative 01/24/2025 1:51 PM [address]T [address] [place] [address] Examination: Portable chest. Exam time: 1342 hours. Clinical history: Left-sided chest pain. Palpitations. Comparison: 05/18/2023. Technique: AP upright view. Findings: The cardiomediastinal silhouette is stable. The heart remains within normal limits for size. Pulmonary vascularity is within normal limits. The lungs and pleural spaces remain free of any active process. The visualized bony thorax is unremarkable. Procedure Note Paulino Mitchell MD - 01/24/[address] [place] [address] Examination: Portable chest. Exam time: 1342 hours. Clinical history: Left-sided chest pain. Palpitations. Comparison: 05/18/2023. Technique: AP upright view. Findings: The cardiomediastinal silhouette is stable. The heart remainswithin normal limits for size. Pulmonary vascularity is within normallimits. The lungs and pleural spaces remain free of any active process.The visualized bony thorax is unremarkable. IMPRESSION: No significant change. No acute disease. Referred By: Interpreted By: Paulino Mitchell MD, 01/24/2025 1:50 PM Salty Potts MD GENERAL IMAGING Final Resul t * (ABNORMAL) URINALYSIS (01/24/2025 1:20 PM CDT) Only the most recent of2 resultswithin the time period is included. COLOR (U) YELLOW 01/24/2025 1:57 PM CDT [facility] TRANSPARENCY CLEAR 01/24/2025 1:57 PM CDT [facility] SPECIFIC GRAVITY (U) 1.030(H) 1.000 - 1.025 01/24/2025 1:57 PM CDT [facility] Comment:EQUAL TO OR GREATER THAN U PH 6.0 5.0 - 8.0 01/24/2025 1:57 PM CDT [facility] LEUKOCYTES (U) NEGATIVE NEGATIVE 01/24/2025 1:57 PM CDT [facility] NITRITES NEGATIVE NEGATIVE 01/24/2025 1:57 PM CDT [facility] PROTEIN RANDOM (U) NEGATIVE NEGATIVE 01/24/2025 1:57 PM CDT [facility] GLUCOSE (U) NEGATIVE NEGATIVE 01/24/2025 1:57 PM CDT [facility] KETONES MG/DL (U) NEGATIVE NEGATIVE 01/24/2025 1:57 PM CDT [facility] UROBILINOGEN 0.2 <1.0 EU/DL 01/24/2025 1:57 PM CDT [facility] BILIRUBIN (U) NEGATIVE NEGATIVE 01/24/2025 1:57 PM CDT [facility] BLOOD (U) NEGATIVE NEGATIVE 01/24/2025 1:57 PM CDT [facility] WBC/HPF 5-10(A) 0 - 5 /HPF 01/24/2025 1:57 PM CDT [facility] RBC/HPF 0-5 0 - 5 /HPF 01/24/2025 1:57 PM CDT [facility] EPI/LPF MANY /LPF 01/24/2025 1:57 PM CDT [facility] BACTERIA (U) 3+ /HPF 01/24/2025 1:57 PM CDT [facility] MUCUS PRESENT 01/24/2025 1:57 PM CDT [facility] URINE SPECIMEN OBTAINED BY CLEAN CATCH PROCEDURE / Unknown 01/24/2025 1:20 PM CDT us Salty Potts MD URINE ORDERABLES Final Resu lt [facility] [address] [place] [address], * TEST URINE (01/24/2025 1:20 PM CDT) URINE HCG TEST POSITIVE 01/24/2025 1:30 PM CDT [facility] SPECIFIC GRAVITY >1.030 01/24/2025 1:30 PM CDT [facility] URINE SPECIMEN FROM URETHRA / Unknown 01/24/2025 1:20 PM CDT us Salty Potts MD URINE ORDERABLES Final Resu lt [facility] [address] [place] [address], * (ABNORMAL) COMPREHENSIVE METABOLIC PANEL (01/24/2025 1:06 PM CDT) Only the most recent of2 resultswithin the time period is included. Pathologist [facility] SODIUM S/P/B 136 136 - 145 MMOL/L 01/24/2025 1:34 PM CDT [facility] POTASSIUM S/P/B 3.6 3.5 - 5.1 MMOL/L 01/24/2025 1:34 PM CDT [facility] CHLORIDE S/P/B 102 98 - 107 MMOL/L 01/24/2025 1:34 PM CDT [facility] CO2 28.3 21.0 - 32.0 MMOL/L 01/24/2025 1:34 PM CDT [facility] GLUCOSE 113(H) 70 - 99 MG/DL 01/24/2025 1:34 PM CDT [facility] Comment: FASTING GLUCOSE 100 TO 125 MG/DL IS CONSISTENT WITH IMPAIRED FASTING GLUCOSE. FASTING GLUCOSE >125 MG/DL IS CONSISTENT WITH DIABETES. RANDOM GLUCOSE >200 MG/DL WITH HYPERGLYCEMIC SYMPTOMS IS CONSISTENT WITH DIABETES. PER ADA GUIDELINES BUN 12 6 - 24 MG/DL 01/24/2025 1:34 PM CDT [facility] CREATININE S/P/B 0.64 0.55 - 1.02 MG/DL 01/24/2025 1:34 PM CDT [facility] CALCIUM S/P/B 9.0 8.4 - 10.5 MG/DL 01/24/2025 1:34 PM CDT [facility] BILIRUBIN TOTAL S/P/B 0.2 0.2 - 1.0 MG/DL 01/24/2025 1:34 PM [facility] Comment: THIS ASSAY IS NOT RECOMMENDED FOR PATIENTS UNDERGOING TREATMENT WITH ELTROMBOPAG DUE TO THE POTENTIAL FOR FALSELY ELEVATED RESULTS. ALKALINE PHOSPHATASE S/P/B 80 37 - 98 U/L 01/24/2025 1:34 PM T [facility] AST 13(L) 15 - 37 U/L 01/24/2025 1:34 PM [facility] ALT 26 14 - 59 U/L 01/24/2025 1:34 PM [facility] TOTAL PROTEIN S/P/B 7.4 6.4 - 8.2 G/DL 01/24/2025 1:34 PM [facility] ALBUMIN S/P/B 3.5 3.4 - 5.0 G/DL 01/24/2025 1:34 PM [facility] ANION GAP 5.7 5.0 - 15.0 MMOL/L 01/24/2025 1:34 PM [facility] OSMOLALITY (CALC) 283 MOSM/KG 025 1:34 PM [facility] Comment:REFERENCE RANGE NOT ESTABLISHED GFR ESTIMATE >90 >89 ML/MIN/1. 73 M2 01/24/2025 1:34 PM [facility] GFR NOTES GFR REFERENCE S: 01/24/2025 1:34 PM [facility] Comment: THE ESTIMATED GFR IS CALCULATED USING THE 2020 CKD-EPI EQUATION. THE FOLLOWING CATEGORIES FOR GRADING RENAL FUNCTION ARE RECOMMENDED BY THE INTERNATIONAL SOCIETY OF NEPHROLOGY (KDIGO 2012 CLINICAL PRACTICE GUIDELINE). G1,NORMAL OR HIGH: >89 ml/min/1.73 m2 G2,MILDLY DECREASED: 60-89 ml/min/1.73 m2 G3A,MILDLY TO MODERATELY DECREASED: 45-59 ml/min/1.73 m2 G3B,MODERATELY TO SEVERELY DECREASED: 30-44 ml/min/1.73 m2 G4,SEVERELY DECREASED: 15-29 ml/min/1.73 m2 G5,KIDNEY FAILURE: <15 ml/min/1.73 m2 01/24/2025 1:06 PM CDT us Salty Potts MD LABORATORY Final Resul t [facility] [address] [place] [address], * CBC W/DIFF AUTOMATED (01/24/2025 1:06 PM CDT) Only the most recent of3 resultswithin the time period is included. WBC 10.23 4.00 - 10.80 x10'3/uL 01/24/2025 1:38 PM CDT [facility] RBC 4.38 4.10 - 5.40 x10'6/uL 01/24/2025 1:38 PM CDT [facility] HGB 12.0 12.0 - 16.0 G/DL 01/24/2025 1:38 PM CDT [facility] HCT 36.1 36.0 - 47.0 % 01/24/2025 1:38 PM CDT [facility] MCV 82.4 78.0 - 100.0 FL 01/24/2025 1:38 PM CDT [facility] MCH 27.4 27.0 - 31.0 PG 01/24/2025 1:38 PM CDT [facility] MCHC 33.2 33.0 - 36.0 G/DL 01/24/2025 1:38 PM CDT [facility] RDW 12.2 11.5 - 14.5 % 01/24/2025 1:38 PM CDT [facility] PLT 325 150 - 350 x10'3/uL 01/24/2025 1:38 PM CDT [facility] MPV 9.3 7.4 - 10.4 FL 01/24/2025 1:38 PM CDT [facility] CBC COMMENT NORMAL REFERENCE RANGE NOT ESTABLISHED FOR THE PROPORTIONAL LEUKOCYTE DIFFERENTIAL. 01/24/2025 1:38 PM CDT [facility] NEUTROPHILS % 69.9 % 01/24/2025 1:38 PM CDT [facility] LYMPHOCYTES % 19.6 % 01/24/2025 1:38 PM CDT [facility] MONOCYTES % 8.9 % 01/24/2025 1:38 PM CDT [facility] EOSINOPHILS % 1.1 % 01/24/2025 1:38 PM CDT [facility] BASOPHILS % 0.2 % 01/24/2025 1:38 PM CDT [facility] IMMATURE GRANS % 0.3 % 01/25/20 1:38 PM CDT [facility] NRBC % 0.0 % 01/24/2025 1:38 PM CDT [facility] ABS. NEUTROPHILS 7.15 1.60 - 8.30 x10'3/uL 01/24/2025 1:38 PM CDT [facility] ABS. LYMPHOCYTES 2.01 0.80 - 4.70 x10'3/uL 01/24/2025 1:38 PM CDT [facility] ABS. MONOCYTES 0.91 0.00 - 1.50 x10'3/uL 01/24/2025 1:38 PM CDT [facility] ABS. EOSINOPHILS 0.11 0.00 - 0.40 x10'3/uL 01/24/2025 1:38 PM CDT [facility] ABS. BASOPHILS 0.02 0.00 - 0.20 x10'3/uL 01/24/2025 1:38 PM CDT [facility] ABS. IMMATURE GRANULOCYTES 0.03 0.00 - 0.03 x10'3/uL 01/24/2025 1:38 PM CDT [facility] ABS. NUCLEATED RBC'S 0.00 0.00 - 0.01 x10'3/uL 01/24/2025 1:38 PM CDT [facility] 01/24/2025 1:06 PM CDT Salty Potts MD LABORATORY Final Resul t Performing Organization Address City/State/[facility] de Phone Number [facility] [address] [place] [id number], * TROPONIN, QUANT (01/24/2025 1:06 PM CDT) Only the most recent of3 resultswithin the time period is included. TROPONIN I HIGH SENSITIVITY 4 0 - 51 ng/L 01/24/2025 1:34 PM CDT [facility] 01/24/2025 1:06 PM CDT Salty Potts MD LABORATORY Final Resul t Performing Organization Address [facility] de Phone Number [facility] [address] [place] [phone], * LIPASE (01/24/2025 1:06 PM CDT) LIPASE 25 16 - 77 UNITS/L 01/24/2025 1:34 PM CDT [facility] 01/24/2025 1:06 PM CDT Salty Potts MD LABORATORY Final Resul t Performing Organization Address [facility] de Phone Number [facility] [address] [place] [id number], * ECG 12 lead (01/24/2025 12:48 PM CDT) Only the most recent of2 resultswithin the time period is included. 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 [address] Test Date: 2025-01-24 Pat Name: LIBRADO MEJIA Department: 3 Room: EXAM 404 Gender: Female Director Of Application Development: : 2000 Requested By: SALTY POTTS Order Number: [id number] Reading MD: Logan Wong Measurements Intervals [place] Rate: 79 P: 71 VT: 147 QRS: 52 QRSD: 80 T: 45 QT: 337 QTc: 388 Interpretive Statements SINUS RHYTHM Salty Potts MD ECG ORDERABLES Final Resul t Performing Organization Address [facility] de Phone Number [facility] * STRESS TEST (01/21/2025) us Doc Pccl Scanned SCANNING Final Result Performing Organization Address [facility] de Phone Number [facility] ONBASE * USV AKOSUA DUPLEX LOW EXT ADAM (01/18/2025 8:57 AM CDT) Anatomical Region Laterality Modality Extremity Ultrasound 01/18/2025 9:23 AM CDT Impressions 01/18/2025 9:24 AM CDT IMPRESSION: No evidence of deep venous thrombosis. Ordered By: SAMI MEHTA Interpreted By: Paulino Mitchell MD, 01/18/2025 9:23 AM Narrative 01/18/2025 9:24 AM CDT [place] [id number] [place] [address] Examination: Bilateral lower extremity venous color Doppler ultrasound. Exam time: 0813 hours. Clinical history: Bilateral calf pain. Elevated d-dimer. Comparison: Right lower extremity venous Doppler, 08/15/2024. Technique: Grayscale and color Doppler images including spectral analysis. Findings: Color Doppler evaluation of the deep veins of the bilateral lower extremities demonstrates normal appearing color flow, spectra and compressibility throughout. No intraluminal filling defects are identified. Procedure Note Paulino Mitchell MD - 01/18/[address] [place] [address] Examination: Bilateral lower extremity venous color Doppler ultrasound. Exam time: 0813 hours. Clinical history: Bilateral calf pain. Elevated d-dimer. Comparison: Right lower extremity venous Doppler, 08/15/2024. Technique: Grayscale and color Doppler images including spectralanalysis. Findings: Color Doppler evaluation of the deep veins of the bilaterallower extremities demonstrates normal appearing color flow, spectra andcompressibility throughout. No intraluminal filling defects areidentified. IMPRESSION: No evidence of deep venous thrombosis. Ordered By: SAMI MEHTA Interpreted By: Paulino Mitchell MD, 01/18/2025 9:23 AM Sami Mehta DO US VAS Final Result * CTA CHEST PE PROTOCOL (01/17/2025 7:29 PM CDT) Anatomical Region Laterality Modality Chest Computed Tomogra phy 01/17/2025 7:32 PM CDT Impressions 01/17/2025 7:34 PM CDT IMPRESSION: 1. No evidence of pulmonary embolism. No acute findings. Ordered By: SAMI MEHTA Interpreted By: German Chang MD, 01/17/2025 7:32 PM Narrative 01/17/2025 7:34 PM [address]T [address] [place] [address] CTA CHEST WITH CONTRAST PULMONARY EMBOLISM PROTOCOL Clinical history: Shortness of breath. Technique: Dynamic helical images of the chest were obtained after the patient received 92 mL of Isovue 370 nonionic intravenous contrast through an IV in the left antecubital fossa. Images are reviewed in axial, sagittal, and three-dimensional reformatted views. A dose lowering technique was used for this procedure, which may include, but is not limited to, dose reduction technique, automated exposure control, the use of iterative reconstruction, and ALARA (As Low As Reasonably Achievable) / Image Gently techniques. 3-D MIP formatted images were also obtained and are made available for review. Comparison: October 02, 2024. FINDINGS: The obtained images demonstrate good opacification of the pulmonary vasculature. No intraluminal filling defects are observed. There is no evidence of pulmonary embolism. The heart appears normal in size and morphology. No significant pericardial effusion is seen. No pathologically enlarged lymph nodes are present within the mediastinum or andrews. No axillary adenopathy is observed. The great vessels are within normal limits. Pulmonary windows reveal the lungs to be clear bilaterally. No acute consolidations, effusions, or significant pulmonary nodules are observed. Images of the upper abdomen demonstrate the visualized portion of liver, spleen, and adrenal glands to be within normal limits. Procedure Note German Chang MD - 01/17/[address] [place] [address] CTA CHEST WITH CONTRAST PULMONARY EMBOLISM PROTOCOL Clinical history: Shortness of breath. Technique: Dynamic helical images of the chest were obtained after thepatient received 92 mL of Isovue 370 nonionic intravenous contrast throughan IV in the left antecubital fossa. Images are reviewed in axial,sagittal, and three-dimensional reformatted views. A dose loweringtechnique was used for this procedure, which may include, but is notlimited to, dose reduction technique, automated exposure control, the useof iterative reconstruction, and ALARA (As Low As Reasonably Achievable) /Image Gently techniques. 3-D MIP formatted images were also obtained and are made available forreview. Comparison: October 02, 2024. FINDINGS: The obtained images demonstrate good opacification of the pulmonaryvasculature. No intraluminal filling defects are observed. There is noevidence of pulmonary embolism. The heart appears normal in size and morphology. No significantpericardial effusion is seen. No pathologically enlarged lymph nodes arepresent within the mediastinum or andrews. No axillary adenopathy isobserved. The great vessels are within normal limits. Pulmonary windows reveal the lungs to be clear bilaterally. No acuteconsolidations, effusions, or significant pulmonary nodules areobserved. Images of the upper abdomen demonstrate the visualized portion of liver,spleen, and adrenal glands to be within normal limits. IMPRESSION: 1. No evidence of pulmonary embolism. No acute findings. Ordered By: SAMI MEHTA Interpreted By: German Chang MD, 01/17/2025 7:32 PM Sami Mehta DO CT Final Result * (ABNORMAL) D-DIMER, QUANTITATIVE (01/17/2025 5:50 PM CDT) Pathologist [facility] D-DIMER 2,027(H) 0 - 500 ng{FEU}/mL 01/17/2025 6:10 PM CDT [facility] Comment: CALLED TO MATHEW DUFFY RN ER AT 1809 BY READ BACK AND VERIFIED D-Dimer values less than or equal to 500 ng/mL FEU have a negative predictive value of >95% for exclusion of deep vein thrombosis and pulmonary embolism. In patients over 50 (who tend to have higher normal baseline D-Dimer values), recent studies suggest age-adjusted D-Dimer cutoff values (calculated as: age [years] x 10 ng/mL) result in equivalent outcomes and no additional false negative findings. 01/17/2025 5:50 PM CDT Sami Mehta DO LABORATORY Final Result [facility] [address] [place] [address], * (ABNORMAL) HCG QUANT (SERUM)-CHORIONIC GONADOTROPIN (01/14/2025 1:15 PM CDT) Only the most recent of2 resultswithin the time period is included. Pathologist [facility] HCG QUANTITATIVE 5,590(H) 0.0 - 6.0 MIU/ML 01/14/2025 2:16 PM CDT [facility] Comment: WEEKS OF REFERENCE RANGES NON- FEMALE 0-6 0.2 - 1 5 - 50 1 - 2 50 - 500 2 - 3 100 - 5000 3 - 4 500 - 10,000 4 - 5 1000 - 50,000 5 - 6 10,000 - 100,000 6 - 8 15,000 - 200,000 2 - 3 MONTHS 10,000 - 100,000 LOW LEVEL HCG VALUES >25 MIU/ML MAY BE INDICATIVE OF EARLY . WHEN BORDERLINE RESULTS ARE ENCOUNTERED, REPEAT TESTING AT 48 HOURS MAY BE INDICATED. 01/14/2025 1:15 PM CDT us Shawn Mcginnis MD LABORATORY Final Resu lt [facility] [address] [place] [address], * US OB TRANSVAG (01/13/2025 6:37 PM CDT) Anatomical Region Laterality Modality Abdomen, Pelvis Ultrasound 01/13/2025 5:28 PM CDT Impressions 01/13/2025 5:39 PM CDT IMPRESSION: 1. Small gestational sac in the uterine fundus, atypically located left of midline. No yolk sac or pole is present. Differential would include eccentrically positioned intrauterine gestation and interstitial ectopic gestation. Recommend close clinical follow-up and short-term follow-up ultrasound as discussed above. 2. Estimated gestational age by mean sac diameter is 5 weeks, 2 days. 3. No evidence of ovarian torsion. 4. Trace free pelvic fluid. Referred By: Interpreted By: Taiwo Haddad MD, 01/13/2025 5:28 PM Narrative 01/13/2025 5:39 PM CDT [place] [id number] [facility] [place] [address] EXAMINATION: US OB TRANSVAG HISTORY: Abdominal pain, DATE: 01/13/2025 4:34 PM COMPARISON: None TECHNIQUE: Sonographic evaluation of the pelvis via transvaginal approach FINDINGS: Uterus measures 9.2 x 4.6 x 6.0 cm. Endometrial thickness is 12 mm. No uterine mass identified. There is a tiny round anechoic structure in the fundal endometrium, eccentrically positioned left of midline. There is suggestion of decidual reaction favoring an early gestational sac. No yolk sac or pole identified. Mean sac diameter is 0.66 cm corresponding to estimated gestational age 5 weeks, 2 days, corresponding to estimated due date 09/13/2025. Estimated gestational age by reported LMP date is 4 weeks, 5 days, YANETH 09/17/2025. The significant of the eccentric location is unclear. There appears to be 6 to 7 mm of myometrium lateral to the sac. Interstitial ectopic would not be excluded at this time. It is difficult to tell based on the saved images whether there may be arcuate or slight bicornuate configuration to explain off midline second location. Recommend close clinical follow-up with repeat serum beta hCG testing and follow-up ultrasound in one week, or sooner if clinically appropriate. No perigestational hemorrhage identified. Cervix is unremarkable. Right ovary measures 4.8 x 2.2 x 2.6 cm and the left ovary measures 3.4 x 2.4 x 3.1 cm. No evidence of ovarian torsion. No adnexal mass or cystic lesion. Trace free pelvic fluid is noted. Procedure Note Taiwo Haddad MD - 01/13/[address] [place] [address] EXAMINATION: US OB TRANSVAG HISTORY: Abdominal pain, DATE: 01/13/2025 4:34 PM COMPARISON: None TECHNIQUE: Sonographic evaluation of the pelvis via transvaginalapproach FINDINGS: Uterus measures 9.2 x 4.6 x 6.0 cm. Endometrial thickness is 12mm. No uterine mass identified. There is a tiny round anechoic structure in the fundal endometrium,eccentrically positioned left of midline. There is suggestion of decidualreaction favoring an early gestational sac. No yolk sac or poleidentified. Mean sac diameter is 0.66 cm corresponding to estimatedgestational age 5 weeks, 2 days, corresponding to estimated due date09/13/2025. Estimated gestational age by reported LMP date is 4 weeks, 5days, YANETH 09/17/2025. The significant of the eccentric location isunclear. There appears to be 6 to 7 mm of myometrium lateral to the sac.Interstitial ectopic would not be excluded at this time. It isdifficult to tell based on the saved images whether there may be arcuateor slight bicornuate configuration to explain off midline second location.Recommend close clinical follow-up with repeat serum beta hCG testing andfollow-up ultrasound in one week, or sooner if clinically appropriate. Noperigestational hemorrhage identified. Cervix is unremarkable. Right ovary measures 4.8 x 2.2 x 2.6 cm and theleft ovary measures 3.4 x 2.4 x 3.1 cm. No evidence of ovarian torsion.No adnexal mass or cystic lesion. Trace free pelvic fluid is noted. IMPRESSION: 1. Small gestational sac in the uterine fundus, atypically located leftof midline. No yolk sac or pole is present. Differential wouldinclude eccentrically positioned intrauterine gestation and interstitialectopic gestation. Recommend close clinical follow-up and nweuy-[id number] ultrasound as discussed above. 2. Estimated gestational age by mean sac diameter is 5 weeks, 2 days. 3. No evidence of ovarian torsion. 4. Trace free pelvic fluid. Referred By: Interpreted By: Taiwo Haddad MD, 01/13/2025 5:28 PM Kaitlin Colon MD ULTRASOUND Final Resul t * TYPE AND SCREEN (01/13/2025 4:02 PM CDT) ABO/RH B POSITIVE 01/13/2025 4:56 PM CDT [facility] ANTIBODY SCREEN NEGATIVE 01/13/2025 4:56 PM CDT [facility] SAMPLE EXPIRATION 01/16/2025,2 359 01/13/2025 4:56 PM CDT [facility] 01/13/2025 4:02 PM CDT Kaitlin Colon MD BLOOD BANK TEST ORDERABLES Final Result Performing Organization Address [facility] de Phone Number [facility] [address] [place] [address], * CULTURE URINE (01/13/2025 3:43 PM CDT) SPEC DESCRIPTION URINE CLEAN CATCH 01/13/2025 3:49 PM CDT [facility] SPECIAL REQUESTS NO SPECIAL REQUEST 01/13/2025 3:49 PM CDT [facility] CULTURE RESULT NO GROWTH (< OR = 1,000 CFU/ML) 01/15/2025 10:12 AM CDT [facility] URINE SPECIMEN OBTAINED BY CLEAN CATCH PROCEDURE / Unknown 01/13/2025 3:43 PM CDT 01/13/2025 3:51 PM CDT Kaitlin Colon MD [facility] Final Result Performing Organization Address [facility] de Phone Number [facility] [address] [place] [address], [id number] [facility] [address] [place] [address], * (ABNORMAL) BASIC METABOLIC PANEL (01/13/2025 3:23 PM CDT) SODIUM S/P/B 136 136 - 145 MMOL/L 01/13/2025 4:22 PM CDT [facility] POTASSIUM S/P/B 3.6 3.5 - 5.1 MMOL/L 01/13/2025 4:22 PM CDT [facility] CHLORIDE S/P/B 101 98 - 107 MMOL/L 01/13/2025 4:22 PM CDT [facility] CO2 27.7 21.0 - 32.0 MMOL/L 01/13/2025 4:22 PM CDT [facility] GLUCOSE 106(H) 70 - 99 MG/DL 01/13/2025 4:22 PM CDT [facility] Comment: FASTING GLUCOSE 100 TO 125 MG/DL IS CONSISTENT WITH IMPAIRED FASTING GLUCOSE. FASTING GLUCOSE >125 MG/DL IS CONSISTENT WITH DIABETES. RANDOM GLUCOSE >200 MG/DL WITH HYPERGLYCEMIC SYMPTOMS IS CONSISTENT WITH DIABETES. PER ADA GUIDELINES BUN 11 6 - 24 MG/DL 01/13/2025 4:22 PM CDT [facility] CREATININE S/P/B 0.65 0.55 - 1.02 MG/DL 01/13/2025 4:22 PM CDT [facility] CALCIUM S/P/B 9.0 8.4 - 10.5 MG/DL 01/13/2025 4:22 PM CDT [facility] ANION GAP 7.3 5.0 - 15.0 MMOL/L 01/13/2025 4:22 PM CDT [facility] OSMOLALITY (CALC) 282 MOSM/KG 025 4:22 PM CDT [facility] Comment:REFERENCE RANGE NOT ESTABLISHED GFR ESTIMATE >90 >89 ML/MIN/1. 73 M2 01/13/2025 4:22 PM CDT [facility] GFR NOTES GFR REFERENCE S: 01/13/2025 4:22 PM T [facility] Comment: THE ESTIMATED GFR IS CALCULATED USING THE 2020 CKD-EPI EQUATION. THE FOLLOWING CATEGORIES FOR GRADING RENAL FUNCTION ARE RECOMMENDED BY THE INTERNATIONAL SOCIETY OF NEPHROLOGY (KDIGO 2012 CLINICAL PRACTICE GUIDELINE). G1,NORMAL OR HIGH: >89 ml/min/1.73 m2 G2,MILDLY DECREASED: 60-89 ml/min/1.73 m2 G3A,MILDLY TO MODERATELY DECREASED: 45-59 ml/min/1.73 m2 G3B,MODERATELY TO SEVERELY DECREASED: 30-44 ml/min/1.73 m2 G4,SEVERELY DECREASED: 15-29 ml/min/1.73 m2 G5,KIDNEY FAILURE: <15 ml/min/1.73 m2 01/13/2025 3:23 PM CDT us Kaitlin Colon MD LABORATORY Final Resul t [facility] [address] [place] [address], * CORONAVIRUS (COVID-19) ANTIGEN (12/01/2024 7:50 PM VOICE INSTRUCTOR) Pathologist [facility] CORONAVIRUS ANTIGEN IA NEGATIVE NEGATIVE 12/01/2024 8:28 PM VOICE INSTRUCTOR [facility] Comment: NEGATIVE RESULTS DO NOT RULE OUT SARS-COV-2 INFECTION AND SHOULD NOT BE USED THE SOLE BASIS FOR TREATMENT OR PATIENT MANAGEMENT DECISIONS, INCLUDING INFECTION CONTROL DECISIONS. NEGATIVE RESULTS SHOULD BE CONSIDERED IN THE CONTEXT OF A PATIENT'S RECENT EXPOSURES, HISTORY AND THE PRESENCE OF CLINICAL SIGNS AND SYMPTOMS CONSISTENT WITH COVID 19. THIS TEST HAS BEEN AUTHORIZED BY THE FDA UNDER AN EMERGENCY USE AUTHORIZATION (EUA) FOR USE BY AUTHORIZED LABORATORIES. SPECIMEN TYPE NASAL 12/01/2024 7:50 PM VOICE INSTRUCTOR [facility] NASAL NASAL STRUCTURE / Unknown 12/01/2024 7:50 PM VOICE INSTRUCTOR us Wayne Ledesma MD MICROBIOLOGY - GENERAL ORDERA BLES Final Result Performing Organization Address City/[facility]/ZIP Co de Phone Number [facility] [address] [place] [phone], * INFLUENZA A & B (12/01/2024 7:50 PM VOICE INSTRUCTOR) Pathologist [facility] SPECIMEN TYPE (INFLUENZA) NASOPHARYNGEAL SWAB 12/01/2024 7:50 PM VOICE INSTRUCTOR [facility] INFLUENZA A NEGATIVE NEGATIVE 12/01/2024 8:28 PM VOICE INSTRUCTOR [facility] INFLUENZA B NEGATIVE NEGATIVE 12/01/2024 8:28 PM VOICE INSTRUCTOR [facility] Comment: A NEGATIVE RESULT DOES NOT EXCLUDE INFLUENZA VIRUS INFECTION. IF INFLUENZA IS CIRCULATING IN YOUR COMMUNITY, A DIAGNOSIS OF INFLUENZA SHOULD BE CONSIDERED BASED ON A PATIENT'S CLINICAL PRESENTATION AND EMPIRIC ANTIVIRAL TREATMENT SHOULD BE CONSIDERED IF INDICATED. NASOPHARYNGEAL SWAB / Unknown 12/01/2024 7:50 PM VOICE INSTRUCTOR us Wayne Ledesma MD MICROBIOLOGY - GENERAL ORDERA BLES Final Result Performing Organization Address City/[facility]/ZIP Co de Phone Number [facility] [place], [place] [address] [phone] from Last 3 Months Insurance FLOOD Care Teams Boat Master Relationship Specialty Start Date End Date Tanner Paige MD [address] [facility] [place] [address] PCP - General FAMILY PRACTICE 07/01/24 Steph Hightower MD [address] [place] [address] Consulting Physician CARDIOVASCULAR DISEASE 11/07/22 Janell Celaya APNP [id number] [place] [address] NURSE PRACTITIONER 12/01/24
--- OUTSIDE RECORDS SUMMARY | 2025-02-04 10:27 | XMS_ITS | Encounter Summary ---
Author Organization [facility] Healthcare Address [address] [place] [address] Care Team Providers Care Entrance Guard Name Role Phone Kera Flanagan NP Primary Care Provider [phone] Tammi Menon APRN Primary Care Provider Encounter Details Date Type Department Care Team (Late st Contact Info) Description 10/25/2023 Orders Only [facility] Home Care Services [address] [place] [address] Carli Whitaker, [facility] Social History Tobacco Use Types Packs/Day Years Used Date Smoking Tobacco: Never Smokeless Tobacco: Never OASIS D0700: Social Isolation Answer Da te Recorded Frequency of experiencing loneliness or isolatio n Never 10/25/2023 OASIS A1250: Transportation Answer Date Recorded Lack of Transportation (Medical) No 10/25/2023 Lack of Transportation (Non-Medical) Yes 10/25/2023 Patient Unable or Declines to Respond No 10/25/2023 OASIS B1300: Health Literacy Answer Neil e Recorded Frequency of needing help to read materials from doctor or pharmacy Never 10/25/2023 Personal Safety Answer Date Recorded Have you ever been in or are you currently in a harmful physical or emotional relationship or is someone making you feel afraid or unsafe? Denies 06/05/2023 Comments No Sex and Gender Information Value Date Recorded Sex Assigned at Not on file Legal Sex Female 11:55 PM GUEST EXPERIENCE REPRESENTATIVE Gender Identity Not on file Sexual Orientation Not on file documented as of this encounter Plan of Treatment Not on file documented as of this encounter Visit Diagnoses Not on filedocumented in this encounter Additional Health Concerns Infection Onset Date Last Indicated Resolved Time COVID: Suspected 12/31/2024 12/31/2024 12/31/2024 3:10 PM GUEST EXPERIENCE REPRESENTATIVE documented as of this encounter Care Teams Entrance Guard Relationship Specialty Start Date End Date Kera Flanagan, [place] PCP - General 05/30/22 12/30/24 Tammi Menon APRN [address] [place] [address] PCP - General Family Medicine 12/31/24 documented as of this encounter
--- OUTSIDE RECORDS SUMMARY | 2025-02-04 10:27 | XMS_ITS | Clinical Summary ---
Author Organization [facility] Address [address] [place] [address] Care Team Providers Care Mucker Operator Name Role Phone Tammi Menon DOREEN Primary Care Provider Allergies Active Allergy Reactions Criticality Noted Date Comments Terbutaline Unknown 07/04/2019 Medications multivitamin tabletIndicatio ns:Vitamin Deficiency Prevention Take 1 tablet by mouth Active doxylamine (UNISOM) 25 mg tablet Take 0.5 tablets (12.5 mg total) by mouth 3 (three) times a day as needed for sleep 60 tablet 1 9 Active pyridoxine (VITAMIN B-6) 25 mg tablet Take 0.5 tablets (12.5 mg total) by mouth 3 (three) times a day as needed (nausea) 60 tablet 1 9 Active polyethylene glycol (MIRALAX) 17 gram/dose powder Take 17 g by mouth daily 510 g 2 9 Active doxycycline (VIBRAMYCIN) 100 mg capsule Take 1 tablet/capsul e (100 mg total) by mouth 2 (two) times a day for 5 days 10 capsule 5 01/06/20 25 methylPREDNISol one (MEDROL DOSEPACK) 4 mg Dosepack Take as directed on package 1 packet 5 01/07/20 25 Active Problems Problem Noted Date Diagnosed Date 07/04/2019 Overview (07/04/2019): 07/04/2019: Plans to have care with Dr. Ortega Denson in [place], [place]. Assessment & Plan (07/04/2019 7:48 PM CDT): - no plans to initiate care in [facility] - gave Rx for doxylamine/pyridoxine for nausea - encouraged smoking cessation; recommended she d/w Dr. Addison Denson when she establishes care Abdominal pain in 07/04/2019 Overview (07/04/2019): 07/04/2019: presented to [facility], r/o for acute process. Transfer to [facility] for dating confirmation. Reports no BM in 1 week. Assessment & Plan (07/04/2019 7:45 PM CDT): - discussed constipation as most likely etiology of her colicky cramping abdominal pain - discussed need to increase soluble fiber in diet (whole grains, cooked vegetables) and use of daily Miralax (Rx given) History of maternal cervical laceration, current ly 07/04/2019 Overview (07/04/2019): 07/04/2019: reports requiring emergent general anesthesia with 37 sutures to repair laceration. Also required blood transfusion for hemorrhage. Encounters Date Type Department Care Team Description 12/31/2024 2:47 PM WINDOWS AND DOORS INSTALLER - 12/31/2024 5:34 PM [facility] Emergency [facility] Emergency Department [address] [place] [address] [id number] Shortness of breath (Primary Dx) Discharge Disposition: Discharge to home or self care from Last 3 Months Surgical History Surgery Date Site/Laterality Comments CERVIX SURGERY in childbirth Social History Tobacco Use Types Packs/Day Years [...] making you feel afraid or unsafe? Denies 12/31/2024 Comments No Sex and Gender Information Value Date Recorded Sex Assigned at Not on file Legal Sex Female 11:55 PM WINDOWS AND DOORS INSTALLER Gender Identity Not on file Sexual Orientation Not on file Obstetrics History Para Term AB IAB SAB Ectopic Multiple Livin g Live Births 3 1 1 1 1 1 1 Date Outcome GA Total Labor Labor/2nd/3rd Weight Sex Type Anes PTL Tuyet A1 A5 Name Clin 2016 SAB 018 Term 3.629 kg (8 lb) F Vag-S pont Epidur al Livin g Complications:Post He morrhage,Cervical laceration,Maternal blood transfusion Last Filed Vital Signs Vital Sign Reading Time Taken Comments Blood Pressure 101/69 12/31/2024 5:25 PM WINDOWS AND DOORS INSTALLER Pulse 77 12/31/2024 5:25 PM WINDOWS AND DOORS INSTALLER Temperature 37.1 C (98.7 F) 12/31/2024 2:09 PM WINDOWS AND DOORS INSTALLER Respiratory Rate 18 12/31/2024 5:25 PM WINDOWS AND DOORS INSTALLER Oxygen Saturation 100% 12/31/2024 5:25 PM WINDOWS AND DOORS INSTALLER Inhaled Oxygen Concentration - - Weight 72.7 kg (160 lb 4.4 oz) 12/31/2024 2:09 P M WINDOWS AND DOORS INSTALLER Height 165.1 cm (5' 5 ) 12/31/2024 2:09 PM WINDOWS AND DOORS INSTALLER Body Mass Index 26.67 12/31/2024 2:09 PM WINDOWS AND DOORS INSTALLER Plan of Treatment Health Maintenance Due Date Last Done Comments Cervical Cancer Screening 1999 Depression Screening 1999 Hepatitis C Screening 1999 Regular Well Visit/Exam 18-64 2017 HPV Vaccines (2 - 3-dose series) 02/02/2017 01/05/2017 DTaP/Tdap/Td Vaccine (7 - Td or Tdap) 06/21/2022 06/21/2012, 06/29/2004, 08/30/2000, Additional history exists Influenza Vaccine (#1) 2024 4, 08/18/2010, 08/25/2005 Hepatitis B Screening Completed 07/29/2000 , 04/18/2000, 1999, Additional history exists Varicella Vaccines Completed 08/31/2014, 07/29/2000 Pneumococcal vaccine <65 Aged Out No longer eligible based on patient's age to complete this topic Procedures Procedure Name Priority Date/Time Associated Diagnosis Comments CT CHEST PE W CONTRAST ED 3:51 PM WINDOWS AND DOORS INSTALLER POCT HCG, URINE Routine 12/31/2024 3:19 PM WINDOWS AND DOORS INSTALLER XR CHEST PA LATERAL 2 VIEWS ED 12/31/2024 2:26 PM WINDOWS AND DOORS INSTALLER EGFR STAT 12/31/2024 2:16 PM WINDOWS AND DOORS INSTALLER DIFFERENTIAL AUTO STAT 12/31/2024 2:1 6 PM [employer]INDOWS AND DOORS INSTALLER D-DIMER, QUANTITATIVE STAT 12/31/2024 2:16 PM WINDOWS AND DOORS INSTALLER COMPREHENSIVE METABOLIC PANEL STAT 12/31/2024 2:16 PM WINDOWS AND DOORS INSTALLER CBC WITH AUTO DIFFERENTIAL STAT 12/31/2024 2:16 PM WINDOWS AND DOORS INSTALLER INFLUENZA A/B, RSV, AND COVID-19 PCR STAT 12/31/2024 2:16 PM WINDOWS AND DOORS INSTALLER from Last 3 Months Results * CT Chest PE (CTA) W Contrast (12/31/2024 3:51 PM WINDOWS AND DOORS INSTALLER) Anatomical Region Laterality Modality Body N/A Computed Tomogra phy 12/31/2024 4:49 PM WINDOWS AND DOORS INSTALLER Narrative 12/31/2024 5:03 PM WINDOWS AND DOORS INSTALLER EXAM DESCRIPTION: CT CHEST PE (CTA) W CONTRAST REASON FOR STUDY: Pulmonary embolism (PE) suspected, low to intermediate prob, positive D-dimer PT states she has been having SOB and states her L side of ribs started hurting after doing pulmonary test today. Originally SOB has been going on for 2-3 weeks. States heart rate has been going up to 114. Also reports dry cough. States she wants to make sure she doesn't have a blood clot. No respiratory distress noted. TECHNIQUE: CT angiogram of the chest performed with intravenous contrast using helical scanning technique with dynamic intravenous contrast injection. Reconstructed coronal and sagittal MPR images reviewed. All images stored on PACS. 3D MIP images rendered on scanning unit and reviewed at time of interpretation. Automated exposure control was used as a dose optimization technique for this examination. CONTRAST TYPE/DOSE: 100mL of IOVERSOL 350 MG IODINE/ML INTRAVENOUS SYRINGE injected via intravenous COMPARISON: No comparison. FINDINGS: VASCULATURE: No identified pulmonary emboli. LUNGS: There are a few scattered ground-glass and nodular opacities throughout both lungs possibly representing early-mild or atypical pneumonitis. No consolidation. PLEURA: No effusion. No pneumothorax. MEDIASTINUM/EDER: No identified masses or abnormal nodes. HEART: Heart size is normal with no pericardial effusion. AXILLA: No adenopathy. CHEST WALL: No masses. No subcutaneous air. HARDWARE/LINES/TUBES: None. UPPER ABDOMEN: Cholecystectomy. No significant abnormality. MUSCULOSKELETAL: No significant abnormality. OTHER: No significant abnormality. IMPRESSION: No pulmonary embolus. Scattered ground-glass and nodular opacities throughout both lungs possibly representing early-mild or atypical pneumonitis. Please correlate with clinical findings. No consolidation or pleural effusion. Otherwise, normal CT of the chest. THIS IS AN ELECTRONICALLY VERIFIED FINAL REPORT 12/31/2024 5:03 PM - Electronically signed by Quang Decker M.D. LC: GABRIEL Report ID: [id number] Reading Location: [id number] Procedure Note Yumiko Decker MD - 12/31/2024 EXAM DESCRIPTION: CT CHEST PE (CTA) W CONTRAST REASON FOR STUDY: Pulmonary embolism (PE) suspected, low to intermediate prob, positive D-dimer PT states she has been having SOB and states her L side of ribs started hurting after doing pulmonary test today. Originally SOB has been going onfor 2-3 weeks. States heart rate has been going up to 114. Also reports dry cough. States she wants to make sure she doesn't have a blood clot. No respiratory distress noted. TECHNIQUE: CT angiogram of the chest performed with intravenous contrastusing helical scanning technique with dynamic intravenous contrast injection. Reconstructed coronal and sagittal MPR images reviewed. All images storedon PACS. 3D MIP images rendered on scanning unit and reviewed at time of interpretation. Automated exposure control was used as a doseoptimization technique for this examination. CONTRAST TYPE/DOSE: 100mL of IOVERSOL 350 MG IODINE/ML INTRAVENOUSSYRINGE injected via intravenous COMPARISON: No comparison. FINDINGS: VASCULATURE: No identified pulmonary emboli. LUNGS: There are a few scattered ground-glass and nodular opacities throughout both lungs possibly representing early-mild or atypical pneumonitis. No consolidation. PLEURA: No effusion. No pneumothorax. MEDIASTINUM/EDER: No identified masses or abnormal nodes. HEART: Heart size is normal with no pericardial effusion. AXILLA: No adenopathy. CHEST WALL: No masses. No subcutaneous air. HARDWARE/LINES/TUBES: None. UPPER ABDOMEN: Cholecystectomy. No significant abnormality. MUSCULOSKELETAL: No significant abnormality. OTHER: No significant abnormality. IMPRESSION: No pulmonary embolus. Scattered ground-glass and nodular opacities throughout both lungspossibly representing early-mild or atypical pneumonitis. Please correlate with clinical findings. No consolidation or pleural effusion. Otherwise, normal CT of the chest. THIS IS AN ELECTRONICALLY VERIFIED FINAL REPORT 12/31/2024 5:03 PM - Electronically signed by Quang Decker M.D. LC: GABRIEL Report ID: [id number] Reading Location: [place] [address] [address] PROCEDURES Final Result * POCT hCG, urine (12/31/2024 3:19 PM WINDOWS AND DOORS INSTALLER) HCG, ur, POC Negative Negative Lot Number [id number] QC Backgroud Clear Acceptable QC Control Line Acceptable Urine 12/31/2024 3:19 PM WINDOWS AND DOORS INSTALLER us Lesley DE LEON POINT OF CARE TEST ORDERABLES F inal Result * XR Chest PA Lateral 2 Views (12/31/2024 2:26 PM WINDOWS AND DOORS INSTALLER) Anatomical Region Laterality Modality Body, Chest N/A Computed Radiogr aphy 12/31/2024 2:43 PM WINDOWS AND DOORS INSTALLER Narrative 12/31/2024 2:43 PM WINDOWS AND DOORS INSTALLER EXAM DESCRIPTION: XR CHEST PA LATERAL 2 VIEWS REASON FOR STUDY: shortness of breath states she has been having SOB and states her L side of ribs started hurting after doing pulmonary test today. Originally SOB has been going on for 2-3 weeks. States heart rate has been going up to 114. Also reports dry cough. States she wants to make sure she doesn't have a blood clot. TECHNIQUE: 2 radiographic view(s) of the chest. COMPARISON: Chest radiograph 06/05/2023 FINDINGS: The cardiomediastinal silhouette appears normal. There is no airspace consolidation or pleural effusion. IMPRESSION: No acute findings THIS IS AN ELECTRONICALLY VERIFIED FINAL REPORT 12/31/2024 2:43 PM - Electronically signed by Remberto Carney M.D. JR: Report ID: [id number] Reading Location: [id number] Procedure Note Remberto Carney MD - 12/31/2024 EXAM DESCRIPTION: XR CHEST PA LATERAL 2 VIEWS REASON FOR STUDY: shortness of breath states she has been having SOB and states her L side of ribs startedhurting after doing pulmonary test today. Originally SOB has been going on for 2-3 weeks. States heart rate has been going up to 114. Also reports drycough. States she wants to make sure she doesn't have a blood clot. TECHNIQUE: 2 radiographic view(s) of the chest. COMPARISON: Chest radiograph 06/05/2023 FINDINGS: The cardiomediastinal silhouette appears normal. There is no airspace consolidation or pleural effusion. IMPRESSION: No acute findings THIS IS AN ELECTRONICALLY VERIFIED FINAL REPORT 12/31/2024 2:43 PM - Electronically signed by Remberto Carney M.D., JR: Report ID: [id number] Reading Location: [id number] Lesley DE LEON IMG XR PROCEDURES Final Result * Influenza A/B, RSV, and COVID-19 PCR Nasopharyngeal (12/31/2024 2:16 PM WINDOWS AND DOORS INSTALLER) [facility] COVID-19 RNA Negative Negative Comment:Testing performed by : [address] [address] Influenza A RNA Negative Negative [facility] Comment:Testing performed by : [address] [address] Influenza B RNA Negative Negative [facility] Comment:Testing performed by : [address] [address] RSV RNA Negative Negative [facility] Comment: Interpretive data: Testing performed by [facility]. This test is performed using the [employer] Xpert Xpress CoV-2/Flu/RSV plus assay. This is a multiplex, real-time reverse transcriptase PCR assay intended for the qualitative detection of nucleic acid from SARS-CoV-2, influenza A, influenza B, and respiratory syncytial virus. This assay has been cleared by the [place] Food and Drug administration. The performance characteristics have been verified by the [facility]. Results must be considered in the clinical context, and a negative result does not rule out infection. Interpretive Data last revised 2023 Testing performed by: [address] [address] Nasopharyngeal 12/31/2024 2: 16 PM WINDOWS AND DOORS INSTALLER 12/31/2024 2:24 PM WINDOWS AND DOORS INSTALLER Narrative [facility] - 12/31/2024 3:09 PM WINDOWS AND DOORS INSTALLER Is the Patient experiencing symptoms consistent with COVID?->Yes Lesley DE LEON LAB MICROBIOLOGY - GENERAL ORDE CLIFF Final Result [facility] [address] [facility] [place] [address] * eGFR (12/31/2024 2:16 PM WINDOWS AND DOORS INSTALLER) [facility] eGFR >90 >=60 mL/min/1. 73 m2 Comment: Interpretive Data Reference Interval Normal >/= 90 mL/min/1.73m2 Mildly decreased* 60 - 89 mL/min/1.73m2 Mildly to moderately decreased 45 - 59 mL/min/1.73m2 Moderately to severely decreased 30 - 44 mL/min/1.73m2 Severely decreased 15 - 29 mL/min/1.73m2 Kidney Failure < 15 mL/min/1.73m2 *Relative to young adult level Estimated glomerular filtration rate is determined by the 2020 CKD-EPI equation recommended by the National Kidney Foundation (A Unifying Approach to GFR Estimation: Recommendations of the NKF-ASK Task Force on Reassessing the Inclusion of Race in Diagnosing Kidney Disease, JASN 202). The CKD-EPI equation should not be used for patients with unstable renal function and has not been validated in children and those over 70. Current interpretive data was last reviewed 2021. Testing performed by: [address] [address] Blood 12/31/2024 2:16 PM WINDOWS AND DOORS INSTALLER 12/31/2024 2:24 PM WINDOWS AND DOORS INSTALLER Lesley DE LEON LAB BLOOD ORDERABLES Final Resu lt [facility] Department [place] [address] * (ABNORMAL) Differential, auto (12/31/2024 2:16 PM WINDOWS AND DOORS INSTALLER) Neutrophil abs 6.0 1.5 - 6.5 K/cumm Comment:Testing performed by : [address] [address] Imm gran abs 0.0 0.0 - 0.1 K/cumm YEVGENIY Comment:Testing performed by : [address] [address] Lymphocyte abs 2.7 0.8 - 3.3 K/cumm [facility] Comment:Testing performed by : [address] [address] Monocyte abs 0.9(H) 0.2 - 0.8 K/cumm [facility]EVGENIY Comment:Testing performed by : [address] [address] Eosinophil abs 0.1 0.0 - 0.5 K/cumm YEVGENIY TOM Comment:Testing performed by : [address] [address] Basophil abs 0.0 0.0 - 0.1 K/cumm [facility]EVGENIY Comment:Testing performed by : [address] [address] Neutrophil pct 61.6 % [facility] Comment: Interpretive Data Percent cell count reference ranges are not reported, since discordance with absolute values may lead to misinterpretation of CBC data. Current Interpretive Data was last revised on 2018. Testing performed by: [address] [address] Imm gran pct 0.3 % [facility] Comment: Interpretive Data Percent cell count reference ranges are not reported, since discordance with absolute values may lead to misinterpretation of CBC data. Current Interpretive Data was last revised on 2018. Testing performed by: [address] [address] Lymphocyte pct 27.3 % [facility] Comment: Interpretive Data Percent cell count reference ranges are not reported, since discordance with absolute values may lead to misinterpretation of CBC data. Current Interpretive Data was last revised on 2018. Testing performed by: [address] [address] Monocyte pct 9.4 % [facility] Comment: Interpretive Data Percent cell count reference ranges are not reported, since discordance with absolute values may lead to misinterpretation of CBC data. Current Interpretive Data was last revised on 2018. Testing performed by: [address] [address] Eosinophil pct 1.2 % [facility] Comment: Interpretive Data Percent cell count reference ranges are not reported, since discordance with absolute values may lead to misinterpretation of CBC data. Current Interpretive Data was last revised on 2018. Testing performed by: [address] [address] Basophil pct 0.2 % [facility] Comment: Interpretive Data Percent cell count reference ranges are not reported, since discordance with absolute values may lead to misinterpretation of CBC data. Current Interpretive Data was last revised on 2018. Testing performed by: [address] [address] Blood 12/31/2024 2:16 PM WINDOWS AND DOORS INSTALLER 12/31/2024 2:24 PM WINDOWS AND DOORS INSTALLER us Lesley DE LEON LAB BLOOD ORDERABLES Final Resu lt YEVGENIY [address] [facility] Department [place] [address] * (ABNORMAL) CBC with auto differential (12/31/2024 2:16 PM WINDOWS AND DOORS INSTALLER) WBC 9.8 3.8 - 9.9 K/cumm Comment:Testing performed by : [address] [address] Hgb 12.8 11.9 - 15.5 g/dL [facility] TOM Comment:Testing performed by : [address] [address] Hct 40.0 35.6 - 45.5 % [facility] TOM Comment:Testing performed by : [address] [address] Plt 288 150 - 400 K/cumm [facility]EVGENIY Comment:Testing performed by : [address] [address] MPV 9.7 9.1 - 12.3 fL [facility] TOM Comment:Testing performed by : [address] [address] RBC 4.74 3.90 - 5.20 M/cumm [facility] TOM Comment:Testing performed by : [address] [address] MCV 84.4 81.3 - 96.4 fL [facility] TOM Comment:Testing performed by : [address] [address] MCH 27.0(L) 27.1 - 33.3 pg [facility]EVGEN[facility] TOM Comment:Testing performed by : [address] [address] MCHC 32.0(L) 32.3 - 35.7 g/dL [facility] TOM Comment:Testing performed by : [facility], [address] [place] [address]., [address] RDW CV 12.2 11.1 - 14.9 % [facility]EVGEN[facility] TOM Comment:Testing performed by : [address] [address] RDW SD 36.9 35.7 - 48.1 fL [facility]EVGEN[facility] TOM Comment:Testing performed by : [address] [address] NRBC abs 0.00 0.00 - 0.01 K/cumm [facility] TOM Comment:Testing performed by : [address] [address] Blood 12/31/2024 2:16 PM WINDOWS AND DOORS INSTALLER 12/31/2024 2:24 PM WINDOWS AND DOORS INSTALLER us Lelsey DE LEON LAB BLOOD ORDERABLES Final Resu lt YEVGENIY TOM [address] [place] [address] Department [place] [address] * (ABNORMAL) D-dimer, quantitative (12/31/2024 2:16 PM WINDOWS AND DOORS INSTALLER) D-Dimer 720(H) <=499 ng/mL FEU Comment: Interpretive data FDA approved the D-dimer, in conjunction with a low or moderate pretest probability score, to exclude venous thromboembolic events (VTE) (PE and DVT) in outpatients when the D-dimer result is < 500 ng/ml FEU. Evidence supports using an age-adjusted D-dimer cut-off for outpatients older than 50 (age x 10) to improve specificity without sacrificing sensitivity. Example: age 68, VTE cut-off 680 ng/ml FEU. References; Schouten HT et al. Brit Med J. 2013;346:f2492. Amelie et al. Annals Int Med. 2015;163:701-11. Current interpretive data was last revised on 2019. Testing performed by: [address] [address] Blood 12/31/2024 2:16 PM WINDOWS AND DOORS INSTALLER 12/31/2024 2:24 PM WINDOWS AND DOORS INSTALLER us Lesley DE LEON LAB BLOOD ORDERABLES Final Resu lt YEVGENIY [address] [facility] [place] [address] * (ABNORMAL) Comprehensive metabolic panel (12/31/2024 2:16 PM WINDOWS AND DOORS INSTALLER) Sodium 137 135 - 145 mmol/L Comment:Testing performed by : [address] [address] Potassium, pl 4.1 3.3 - 4.9 mmol/L [facility]EVGEN[facility]Y Comment:Testing performed by : [address] [address] Chloride 103 97 - 110 mmol/L [facility] Comment:Testing performed by : [address] [address] CO2 24 22 - 32 mmol/L [facility] Comment:Testing performed by : [address] [address] Anion gap 10 2 - 15 mmol/L [facility] Comment:Testing performed by : [address] [address] BUN 11 6 - 25 mg/dL [facility] Comment:Testing performed by : [address] [address] Creatinine 0.57(L) 0.60 - 1.10 mg/dL [facility] Comment:Testing performed by : [address] [address] Glucose 89 70 - 199 mg/dL [facility] Comment: Interpretive Data Fasting glucose >/= 126 mg/dl is diagnostic for diabetes. Fasting is defined as no caloric intake for at least 8 hours. Fasting glucose between 100 mg/dl to 125 mg/dl is diagnostic of prediabetes. In a patient with classic symptoms of hyperglycemia or hyperglycemic crisis, a random glucose >/= 200 mg/dl is diagnostic for diabetes. In the absence of unequivocal hyperglycemia, results should be confirmed by repeat testing. The classification and Diagnosis of Diabetes Diabetes Care 2022; 46: S19-S40. Current interpretive data was last revised 2022. Testing performed by: [facility], [address] [place] [address]., [address] Calcium 9.7 8.5 - 10.3 mg/dL [facility]EVGEN[facility] Comment:Testing performed by : [address] [address] Bilirubin, total 0.2 0.1 - 1.2 mg/dL [facility] Comment:Testing performed by : [address] [address] Protein, pl 7.9 6.5 - 8.5 g/dL [facility] Comment:Testing performed by : [address] [address] Albumin 4.4 3.5 - 5.0 g/dL [facility] Comment:Testing performed by : [address] [address] Alk phos 89 40 - 130 Units/L [facility] Comment:Testing performed by : [address] [address] ALT 21 7 - 45 Units/L [facility] Comment:Testing performed by : [address] [address] AST 24 10 - 45 Units/L [facility] Comment:Testing performed by : [address] [address] Blood 12/31/2024 2:16 PM WINDOWS AND DOORS INSTALLER 12/31/2024 2:24 PM WINDOWS AND DOORS INSTALLER us Lesley DE LEON LAB BLOOD ORDERABLES Final Resu lt YEVGENIY [address] [facility] [place] [address] from Last 3 Months Insurance [facility] Care Teams Mucker Operator Relationship Specialty Start Date End Date Tammi Menon APRN [address] [place] [address] PCP - General Family Medicine 12/31/24
--- OUTSIDE RECORDS SUMMARY | 2025-02-04 10:27 | XMS_ITS | Referral Summary ---
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 Ortega Denson in [place], [place]. Assessment & Plan (07/04/2019 7:48 PM CDT): - no plans to initiate care in [facility] - gave Rx for doxylamine/pyridoxine for nausea - encouraged smoking cessation; recommended she d/w Dr. Addison Denson when she establishes care Abdominal pain in 07/04/2019 Overview (07/04/2019): 07/04/2019: presented to [facility], r/o for acute process. Transfer to [facility] for dating confirmation. Reports no BM in [...] laceration. Also required blood transfusion for hemorrhage. Social History Tobacco Use Types Packs/Day Years [...] on file Legal Sex Female 11:55 PM CONVEYOR ATTENDANT Gender Identity Not on file Sexual Orientation Not on file Last Filed Vital Signs Vital Sign Reading Time Taken Comments Blood Pressure 101/69 12/31/2024 5:25 PM CONVEYOR ATTENDANT Pulse 77 12/31/2024 5:25 PM CONVEYOR ATTENDANT Temperature 37.1 C (98.7 F) 12/31/2024 2:09 PM CONVEYOR ATTENDANT Respiratory Rate 18 12/31/2024 5:25 PM CONVEYOR ATTENDANT Oxygen Saturation 100% 12/31/2024 5:25 PM CONVEYOR ATTENDANT Inhaled Oxygen Concentration - - Weight 72.7 kg (160 lb 4.4 oz) 12/31/2024 2:09 P M CONVEYOR ATTENDANT Height 165.1 cm (5' 5 ) 12/31/2024 2:09 PM CONVEYOR ATTENDANT Body Mass Index 26.67 12/31/2024 2:09 PM CONVEYOR ATTENDANT Plan of Treatment Not on file Procedures Procedure Name Priority Date/Time Associated Diagnosis Comments CT CHEST PE W CONTRAST ED 3:51 PM CONVEYOR ATTENDANT POCT HCG, URINE Routine 12/31/2024 3:19 PM CONVEYOR ATTENDANT XR CHEST PA LATERAL 2 VIEWS ED 12/31/2024 2:26 PM CONVEYOR ATTENDANT EGFR STAT 12/31/2024 2:16 PM CONVEYOR ATTENDANT DIFFERENTIAL AUTO STAT 12/31/2024 2:1 6 PM CONVEYOR ATTENDANT D-DIMER, QUANTITATIVE STAT 12/31/2024 2:16 PM CONVEYOR ATTENDANT COMPREHENSIVE METABOLIC PANEL STAT 12/31/2024 2:16 PM CONVEYOR ATTENDANT CBC WITH AUTO DIFFERENTIAL STAT 12/31/2024 2:16 PM CONVEYOR ATTENDANT INFLUENZA A/B, RSV, AND COVID-19 PCR STAT 12/31/2024 2:16 PM CONVEYOR ATTENDANT from Last 3 Months Results * CT Chest PE (CTA) W Contrast (12/31/2024 3:51 PM CONVEYOR ATTENDANT) Anatomical Region Laterality Modality Body N/A Computed Tomogra phy 12/31/2024 4:49 PM CONVEYOR ATTENDANT Narrative 12/31/2024 5:03 PM CONVEYOR ATTENDANT EXAM DESCRIPTION: CT CHEST PE (CTA) W [...] Quang Decker M.D. LC: GABRIEL Report ID: [id number] Reading Location: [id number] Procedure Note Yumiko Decker MD - 12/31/2024 [...] Quang Decker M.D. LC: GABRIEL Report ID: [id number] Reading Location: [place] [address] [address] [address] PROCEDURES Final Result * POCT hCG, urine (12/31/2024 3:19 PM CONVEYOR ATTENDANT) HCG, ur, POC Negative Negative Lot Number [id number] QC Backgroud Clear Acceptable QC Control Line Acceptable Urine 12/31/2024 3:19 PM CONVEYOR ATTENDANT [facility] POINT OF CARE TEST ORDERABLES F inal Result * XR Chest PA Lateral 2 Views (12/31/2024 2:26 PM CONVEYOR ATTENDANT) Anatomical Region Laterality Modality Body, Chest N/A Computed Radiogr aphy 12/31/2024 2:43 PM CONVEYOR ATTENDANT Narrative 12/31/2024 2:43 PM CONVEYOR ATTENDANT EXAM DESCRIPTION: XR CHEST PA LATERAL 2 [...] by Remberto Carney M.D. JR: Report ID: [id number] Reading Location: [id number] Procedure Note Remberto Carney MD - 12/31/2024 [...] by Remberto Carney M.D. JR: Report ID: [id number] Reading Location: [place] [address] [facility] IMG XR PROCEDURES Final Result * Influenza A/B, RSV, and COVID-19 PCR Nasopharyngeal (12/31/2024 2:16 PM CONVEYOR ATTENDANT) COVID-19 RNA Negative Negative Comment:Testing performed by : [address] [address] Influenza A RNA Negative Negative [facility] Comment:Testing performed by : [address] [address] Influenza B RNA Negative Negative [facility] Comment:Testing performed by : [address] [address] RSV RNA Negative Negative [facility] Comment: Interpretive data: Testing performed by [facility]. This test is performed using the [employer] Xpert Xpress CoV-2/Flu/RSV plus assay. This is a multiplex, real-time reverse transcriptase PCR assay intended for the qualitative detection of nucleic acid from SARS-CoV-2, influenza A, influenza B, and respiratory syncytial virus. This assay has been cleared by the [place] Food and Drug administration. The performance characteristics have been verified by the [facility]. Results must be considered in the clinical context, and a negative result does not rule out infection. Interpretive Data last revised 2023 Testing performed by: [address] [address] Nasopharyngeal 12/31/2024 2: 16 PM CONVEYOR ATTENDANT 12/31/2024 2:24 PM CONVEYOR ATTENDANT Narrative YEVGENIY - 12/31/2024 3:09 PM CONVEYOR ATTENDANT Is the Patient experiencing symptoms consistent with COVID?->Yes [facility] MICROBIOLOGY - GENERAL ORDE RABLES Final Result Performing Organization Address City/[facility]/ZIP Co de Phone Number YEVGENIY [address] [place] [address] * eGFR (12/31/2024 2:16 PM CONVEYOR ATTENDANT) eGFR >90 >=60 mL/min/1. 73 m2 Comment: [...] of Race in Diagnosing Kidney Disease, JASN 2020). The CKD-EPI equation should not be used for patients with unstable renal function and has not been validated in children and those over 70. Current interpretive data was last reviewed 2021. Testing performed by: [facility], [address] [place] [address]., [address] Blood 12/31/2024 2:16 PM CONVEYOR ATTENDANT 12/31/2024 2:24 PM CONVEYOR ATTENDANT [facility] BLOOD ORDERABLES Final Resu lt YEVGENIY [address] Department [place] [address] * (ABNORMAL) Differential, auto (12/31/2024 2:16 PM CONVEYOR ATTENDANT) [facility] Neutrophil abs 6.0 1.5 - 6.5 K/cumm Comment:Testing performed by : [address] [address] Imm gran abs 0.0 0.0 - 0.1 K/cumm YEVGENIY Comment:Testing performed by : [address] [address] Lymphocyte abs 2.7 0.8 - 3.3 K/cumm YEVGENIY Comment:Testing performed by : [address] [address] Monocyte abs 0.9(H) 0.2 - 0.8 K/cumm [facility] Comment:Testing performed by : [address] [address] Eosinophil abs 0.1 0.0 - 0.5 K/cumm [facility] Comment:Testing performed by : [address] [address] Basophil abs 0.0 0.0 - 0.1 K/cumm [facility] Comment:Testing performed by : [address] [address] Neutrophil pct 61.6 % [facility] Comment: Interpretive Data Percent cell count reference ranges are not reported, since discordance with absolute values may lead to misinterpretation of CBC data. Current Interpretive Data was last revised on 2018. Testing performed by: [address] [address] Imm gran pct 0.3 % [facility] Comment: Interpretive Data Percent cell count reference ranges are not reported, since discordance with absolute values may lead to misinterpretation of CBC data. Current Interpretive Data was last revised on 2018. Testing performed by: [address] [address] Lymphocyte pct 27.3 % [facility] Comment: Interpretive Data Percent cell count reference ranges are not reported, since discordance with absolute values may lead to misinterpretation of CBC data. Current Interpretive Data was last revised on 2018. Testing performed by: [address] [address] Monocyte pct 9.4 % YEVGENIY TOM Comment: Interpretive Data Percent cell count reference ranges are not reported, since discordance with absolute values may lead to misinterpretation of CBC data. Current Interpretive Data was last revised on 2018. Testing performed by: [address] [address] Eosinophil pct 1.2 % YEVGENIY TOM Comment: Interpretive Data Percent cell count reference ranges are not reported, since discordance with absolute values may lead to misinterpretation of CBC data. Current Interpretive Data was last revised on 2018. Testing performed by: [address] [address] Basophil pct 0.2 % YEVGENIY TOM Comment: Interpretive Data Percent cell count reference ranges are not reported, since discordance with absolute values may lead to misinterpretation of CBC data. Current Interpretive Data was last revised on 2018. Testing performed by: [address] [address] Blood 12/31/2024 2:16 PM CONVEYOR ATTENDANT 12/31/2024 2:24 PM CONVEYOR ATTENDANT us [facility] BLOOD ORDERABLES Final Resu lt YEVGENIY [facility] [place] [address] * (ABNORMAL) CBC with auto differential (12/31/2024 2:16 PM CONVEYOR ATTENDANT) WBC 9.8 3.8 - 9.9 K/cumm Comment:Testing performed by : [address] [address] Hgb 12.8 11.9 - 15.5 g/dL YEVGENIY TOM Comment:Testing performed by : [address] [address] Hct 40.0 35.6 - 45.5 % YEVGENIY TOM Comment:Testing performed by : [address] [address] Plt 288 150 - 400 K/cumm YEVGENIY TOM Comment:Testing performed by : [address] [address] MPV 9.7 9.1 - 12.3 fL YEVGENIY TOM Comment:Testing performed by : [address] [address] RBC 4.74 3.90 - 5.20 M/cumm YEVGENIY TOM Comment:Testing performed by : [address] [address] MCV 84.4 81.3 - 96.4 fL YEVGENIY Comment:Testing performed by : [address] [address] MCH 27.0(L) 27.1 - 33.3 pg YEVGENIY TOM Comment:Testing performed by : [address] [address] MCHC 32.0(L) 32.3 - 35.7 g/dL YEVGENIY Comment:Testing performed by : [address], [address] RDW CV 12.2 11.1 - 14.9 % YEVGENIY Comment:Testing performed by : [address], [address] RDW SD 36.9 35.7 - 48.1 fL YEVGENIY Comment:Testing performed by : [address] [address] NRBC abs 0.00 0.00 - 0.01 K/cumm YEVGENIY Comment:Testing performed by : [address], [address] Blood 12/31/2024 2:16 PM CONVEYOR ATTENDANT 12/31/2024 2:24 PM CONVEYOR ATTENDANT us [facility] BLOOD ORDERABLES Final Resu lt YEVGENIY TOM [address] [facility] Department of Laboratories [place], [place] [id number] * (ABNORMAL) D-dimer, quantitative (12/31/2024 2:16 PM CONVEYOR ATTENDANT) D-Dimer 720(H) <=499 ng/mL FEU Comment: Interpretive [...] et al. Brit Med J. 2013;346:f2492. Amelie ROBBINS et al. Annals Int Med. 2015;163:701-11. Current interpretive data was last revised on 2019. Testing performed by: [address] [address] Blood 12/31/2024 2:16 PM CONVEYOR ATTENDANT 12/31/2024 2:24 PM CONVEYOR ATTENDANT [facility] BLOOD ORDERABLES Final Resu lt [place] [id number] [facility] [place] [address] * (ABNORMAL) Comprehensive metabolic panel (12/31/2024 2:16 PM CONVEYOR ATTENDANT) Sodium 137 135 - 145 mmol/L Comment:Testing performed by : [address] [address] Potassium, pl 4.1 3.3 - 4.9 mmol/L YEVGENIY Comment:Testing performed by : [address] [address] Chloride 103 97 - 110 mmol/L YEVGENIY Comment:Testing performed by : [address] [address] CO2 24 22 - 32 mmol/L YEVGENIY Comment:Testing performed by : [address] [address] Anion gap 10 2 - 15 mmol/L YEVGENIY Comment:Testing performed by : [address] [address] BUN 11 6 - 25 mg/dL [facility] Comment:Testing performed by : [address] [address] Creatinine 0.57(L) 0.60 - 1.10 mg/dL YEVGENIY Comment:Testing performed by : [address] [address] Glucose 89 70 - 199 mg/dL [facility] Comment: Interpretive Data Fasting glucose >/= 126 [...] classification and Diagnosis of Diabetes Diabetes Care 2021; 46: S19-S40. Current interpretive data was last revised 2022. Testing performed by: [address] [address] Calcium 9.7 8.5 - 10.3 mg/dL [facility] Comment:Testing performed by : [address] [address] Bilirubin, total 0.2 0.1 - 1.2 mg/dL [facility] Comment:Testing performed by : [address] [address] Protein, pl 7.9 6.5 - 8.5 g/dL [facility] Comment:Testing performed by : [address] [address] Albumin 4.4 3.5 - 5.0 g/dL [facility] Comment:Testing performed by : [address] [address] Alk phos 89 40 - 130 Units/L [facility] Comment:Testing performed by : [address] [address] ALT 21 7 - 45 Units/L [facility] Comment:Testing performed by : [address] [address] AST 24 10 - 45 Units/L [facility] Comment:Testing performed by : [facility], [address] [place] [address]., [address] Blood 12/31/2024 2:16 PM CONVEYOR ATTENDANT 12/31/2024 2:24 PM CONVEYOR ATTENDANT us [facility] BLOOD ORDERABLES Final Resu lt YEVGENIY TOM [address] [facility] [place] [address] from Last [address] [place] [address] [facility] Care Teams Senior Hardware Design Engineer Relationship Specialty Start Date End Date Tammi Menon APRN [address] [place] [address] PCP - General Family Medicine 12/31/24
--- OUTSIDE RECORDS SUMMARY | 2025-02-04 10:27 | XMS_ITS | Continuity of Care Document ---
Author Organization [facility] Address [address] [place] [address] Care Team Providers Care Supervisor Telephone Answering Service Name Role Phone CARLOS ESTRADA Primary Care Provider Assessment No assessment recorded. Plan of Treatment Reminders Order Date Submit Date Provider Last Modified By Organization Details Last Modified Time Details Appointments OB PROBLEM 2024 09:00A Shana CORONA MD Not available Not available Not available U/S OB FIRST LOOK 2024 11:00A M ULTRASOUND Not available Not available Not available OB NEW 2024 11:30A M Annette CORONA MD Not available Not available Not available Lab None recorde d. Referral None recorde d. Procedures None recorde d. Surgeries None recorde d. Imaging None recorde d. Medication Orders prometh azine 25 mg tablet 2024 025 [facility], [id number] [facility], [place], [address], 02/04/2025 10:40:13 Fiorice t 50 mg-300 mg-40 mg capsule 2024 025 [facility], [id number] [facility], [place], [address], 02/04/2025 10:39:21 Patient TargetsNo targets recorded. Patient InstructionsNo instructions recorded. Reason for Referral None Reported. Results Created Date Observation Date Name Description Value Unit Range Abnormal Flag Note LastModifiedBy Organization Detail LastModifiedTime 01/15/2001/14/2025 US, pelvi s No observ ation record ed. [email or web address] [facility] [address], [place], [address], 01/14/2025 22:26:54 01/15/20 25 01/14/2025 US, obste tric, trans vagin al No observ ation record ed. [email or web address] [facility] [address], [place], [address], 01/14/2025 13:55:51 01/28/20 25 01/27/2025 US, obste tric, trans vagin al No observ ation record ed. [email or web address] [facility] [address], [place], [address], 01/27/2025 18:32:06 01/28/20 25 01/27/2025 US, obste tric, trans vagin al No observ ation record ed. [email or web address] [facility] [address], [place], [address], 01/27/2025 22:14:08 Result Notes None recorded. Problems Name Problem SNOMED Code Status Onset Date Resolution Date Notes Provider Name and Address Organization Details Recorded Time Gestatio n period, 37 weeks 94972066 Completed 201907/05/2021 37 weeks gestatio n of pregnanc y;Record ed Elsewher e: No Locat ion: [facility] S ource: EHR Electroplating Laborer yvrose: N Dennis ce ID: 0001 Gigi lable Time: 09:00:00 AM Karina ramos [facility] 10:15:[address] Concept Completed 201907/05/2021 Matern care for abnlt fetl hrt rate or rhym, 3rd tri, unsp;Rec orded Elsewher e: No Locat ion: [facility] S ource: EHR Electroplating Laborer yvrose: N Natalyati ce ID: 0001 Gigi lable Time: 08:45:00 AM Karina ramos [facility] 1 10:15:29 Gestatio nal diabetes mellitus 40078276 Completed 201907/05/2021 Gestatio nal diabetes mellitus in pregnanc y, diet controll ed;Recor ded Elsewher e: No Locat ion: [facility] S ource: EHR Electroplating Laborer yvrose: N Practi ce ID: 0001 Gigi lable Time: 11:45:00 AM Karina ramos, [facility] 1 10:15:25 Gestatio n period, 38 weeks 72206152 Completed 201907/05/2021 38 weeks gestatio n of pregnanc y;Record ed Elsewher e: No Locat ion: [facility] S ource: EHR Electroplating Laborer yvrose: N Practi ce ID: 0001 Gigi lable Time: 11:30:00 AM Karina ramos, [facility] 1 10:15:13 Normal pregnanc y in multigra jessy [id number] Completed 201907/05/2021 Encounte r for supervis ion of other normal pregnanc y, 3rd trimeste r;Record ed Elsewher e: No Locat ion: [facility] S ource: EHR Electroplating Laborer yvrose: N Practi ce ID: 0001 Gigi lable Time: 10:45:00 AM Karina ramos, [facility] 1 10:15:27 Amenorrh ea 93576031 Completed 202007/10/2021 Tammi Jones null, [facility] 1 13:08:35 Pregnanc y 95171476 Completed 202003/29/2022 Karina Burruoghs null, [facility] 4 11:00:49 Hypereme sis 598405957 Completed phenerga n now prn Asia felipe null, [facility] 2 16:43:51 Anxiety in pregnanc y [id number] 109 Completed will continue to monitor Asia Choi hl null, [facility] 2 16:43:51 Past pregnanc y history of gestatio nal diabetes mellitus 941950710 Completed Early 1 hr GTT @ 20wks 11/03 APPT Asia Choi hl null, [facility] 2 16:43:51 Spinal muscular atrophy 9059385 Completed Carrier - Not in contact with FOB. Asia Choi hl null, [facility] 2 16:43:51 Pregnanc y 01345150 Completed 202304/22/2024 Karina ramos, [facility] 4 11:00:49 Anxiety 61347178 Completed prozac Karina ramos, [facility] 4 11:00:46 Nausea 059498988 Completed d/c zofran pump 11/08 per pt request Karina ramos [facility] 4 11:00:46 Postpart um hemorrha ge 07977717 Completed 2017 with d&c Karina ramos [facility] 4 11:00:46 Headache 89298134 Active 2023 Karina ramos, [facility] 5 16:19:28 Pregnanc y 82107459 Active 2023 Karina Burroughs [facility] 5 16:19:28 Notes:Order faxed to vascula r access 08/10 for PICC line, and home health already caring for pt. Vladimir RDZ at [phone] Problem Notes None recorded. Procedures Surgical History Date Name Laterality Status Provider Name and Address Organization Details Recorded Time 5 Date of Last Pap Smear completed Karina Burroughs [facility] 01/28/2025 11:19:42 4 Nexplanon Removal completed Shawn Corona MD [address], [place], [address], [facility] 08/05/2024 15:09:58 4 Control Implant Insertion completed Anju Mcnamara CNM [address], [place], [address], [facility] 05/08/2024 17:59:34 8 Dilation and Curettage completed Karina Burroughs [facility] 07/05/2021 10:17:50 Imaging Results None recorded. Procedure Notes None recorded. Medical Equipment None Reported. Allergies Allergen ID Allergen Name Allergen Category Reaction Reaction Severity Criticality Documentation Date Start Date Code Code System Note Provider Name and Address Organization Details Recorded Time 91340 terbutali ne medicatio n anaphylax is Not available Not available 01/27/20252021 02219 RxNorm Karina ramos, [facility] 5 16:19:27 Medications Name Sig Start Date Stop Date Status Note LastModified by Organization Details LastModified Time methocarb isabel 500 mg tablet 01/14 completed Not Available Not Available Not Available buspirone 5 mg tablet TAKE 1 TABLET BY MOUTH THREE TIMES DAILY NEEDED FOR ANXIETY 01/27 completed Not Available Not Available Not Available terconazo le 0.4 % vaginal cream INSERT 1 APPLICAT ORFUL INTO VAGINA EVERY DAY FOR 7 DAYS. 09/14 completed Not Available Not Available Not Available doxycycli ne hyclate 100 mg capsule TAKE 1 CAPSULE BY MOUTH TWICE DAILY FOR 5 DAYS 01/14 completed Not Available Not Available Not Available ketoconaz ole 2 % shampoo APPLY TOPICALL Y TO SCALP THREE TIMES A WEEK FOR 3 WEEKS 01/14 completed Not Available Not Available Not Available clindamyc in HCl 300 mg capsule TAKE 1 CAPSULE BY MOUTH THREE TIMES DAILY FOR 10 DAYS 01/14 completed Not Available Not Available Not Available cetirizin e 10 mg tablet TAKE 1 TABLET BY MOUTH ONCE DAILY AT THE SAME TIME EACH DAY 01/14 completed Not Available Not Available Not Available azithromy yassine 250 mg tablet TAKE 2 TABLETS BY MOUTH ON DAY 1, AND THEN TAKE 1 TABLET BY MOUTH ONCE A DAY ON DAY 2 THROUGH DAY 5 10/02 completed Not Available Not Available Not Available fluconazo le 150 mg tablet Take 1 tablet by mouth and repeat dose in 48 hours 03/27 completed Not Available Not Available Not Available hydrocodo ne 5 mg-acetam inophen 325 mg tablet TAKE 1 TABLET BY MOUTH EVERY 6 HOURS 03/27 completed Not Available Not Available Not Available ondansetr on HCl 2 mg/mL intraveno us solution 05/08 completed Not Available Not Available Not Available polysacch aride iron complex 150 mg iron capsule TAKE 1 CAPSULE BY MOUTH TWICE DAILY WITH MEALS 03/27 completed Not Available Not Available Not Available ondansetr on HCl 4 mg tablet TAKE 1 TABLET BY MOUTH EVERY 8 HOURS 09/14 completed Not Available Not Available Not Available prednison e 20 mg tablet TAKE 2 TABLETS BY MOUTH ONCE DAILY WITH FOOD AT THE SAME TIME EACH DAY FOR 5 DAYS. 01/14 completed Not Available Not Available Not Available ceftriaxo ne 250 mg solution for injection BRING TO OFFICE 11/03 completed Not Available Not Available Not Available terconazo le 0.8 % vaginal cream INSERT 1 APPLICAT ORFUL VAGINALL Y EVERY DAY FOR 3 DAYS 03/27 completed Not Available Not Available Not Available penicilli n V potassium 500 mg tablet TAKE 1 TABLET BY MOUTH 4 TIMES DAILY FOR 10 DAYS 10/02 completed Not Available Not Available Not Available metronida zole 500 mg tablet TAKE 1 TABLET BY MOUTH TWICE DAILY DIRECTED FOR 7 DAYS 01/14 completed Not Available Not Available Not Available sulfameth oxazole 800 mg-trimet hoprim 160 mg tablet TAKE 1 TABLET BY MOUTH TWICE DAILY FOR 7 DAYS 01/14 completed Not Available Not Available Not Available ondansetr on 8 mg disintegr ating tablet DISSOLVE ONE TABLET BY MOUTH 1 HOUR PRIOR TO TAKING METRONID AZOLE DIRECTED 07/05 completed Not Available Not Available Not Available dextrose 5 % and lactated ringers intraveno us solution 09/14 completed Not Available Not Available Not Available nystatin- triamcino lone 100,000 unit/gram -0.1 % topical ointment APPLY TOPICALL Y TO THE AFFECTED AREA TWICE DAILY 02/06 completed Not Available Not Available Not Available alprazola m 0.5 mg tablet 01/14 completed Not Available Not Available Not Available propranol ol 10 mg tablet TAKE 1 TABLET BY MOUTH TWICE DAILY 01/27 completed Not Available Not Available Not Available alprazola m 0.25 mg tablet TAKE 1 TABLET BY MOUTH THREE TIMES DAILY NEEDED FOR ANXIETY 01/14 completed Not Available Not Available Not Available Zoloft 50 mg tablet take 1 tablet by oral route every day 10/02 completed Not Available Not Available Not Available amitripty line 10 mg tablet TAKE 1 TABLET BY MOUTH ONCE DAILY AT BEDTIME 01/27 completed Not Available Not Available Not Available meclizine 25 mg tablet TAKE 1 TABLET BY MOUTH THREE TIMES DAILY NEEDED 01/27 completed Not Available Not Available Not Available doxycycli ne monohydra te 100 mg capsule TAKE 1 CAPSULE BY MOUTH TWICE DAILY FOR 5 DAYS 01/14 completed Not Available Not Available Not Available hydrocodo ne 7.5 mg-acetam inophen 325 mg tablet TAKE 1 TABLET BY MOUTH 4 TIMES DAILY FOR PAIN 01/14 completed Not Available Not Available Not Available cephalexi n 500 mg capsule TAKE 1 CAPSULE BY MOUTH TWICE DAILY FOR 7 DAYS 02/04 completed Not Available Not Available Not Available pantopraz ole 40 mg tablet,de layed release Take 40 mg by oral route. 01/27 completed Not Available Not Available Not Available oseltamiv ir 75 mg capsule TAKE 1 CAPSULE BY MOUTH TWICE DAILY FOR 5 DAYS 01/14 completed Not Available Not Available Not Available triamcino lone acetonide 0.1 % topical ointment APPLY THIN LAYER TOPICALL Y TO THE AFFECTED AREA TWICE DAILY 02/06 completed Not Available Not Available Not Available nystatin 100,000 unit/gram topical cream APPLY TOPICALL Y TO THE AFFECTED AREA TWICE DAILY 02/06 completed Not Available Not Available Not Available promethaz ine 25 mg tablet Take 1 tablet every 4 hours by oral route. 2024 active Not Available Not Available Not Avai lable ibuprofen 400 mg tablet TAKE 1 TABLET BY MOUTH EVERY 6 HOURS NEEDED FOR PAIN 01/14 completed Not Available Not Available Not Available fluoxetin e 10 mg capsule TAKE 1 CAPSULE BY MOUTH ONCE DAILY 01/14 completed Not Available Not Available Not Available buspirone 7.5 mg tablet Take 1 tablet twice a day by oral route for 30 days. 07/05 completed Not Available Not Available Not Available hydroxyzi ne HCl 25 mg tablet TAKE 1/2 TO 1 (ONE-JOSE L F TO ONE) TABLET BY MOUTH THREE TIMES DAILY FOR ANXIETY 01/14 completed Not Available Not Available Not Available mupirocin 2 % topical ointment APPLY OINTMENT TOPICALL Y THREE TIMES DAILY FOR 7 DAYS 10/02 completed Not Available Not Available Not Available ergocalci ferol (vitamin D2) 1,250 mcg (50,000 unit) capsule TAKE 1 CAPSULE BY MOUTH ONCE A WEEK 01/27 completed Not Available Not Available Not Available Prometheg an 25 mg rectal supposito ry UNWRAP AND INSERT 1 SUPPOSIT ORY RECTALLY EVERY 6 TO 8 HOURS NEEDED 11/03 completed Not Available Not Available Not Available ibuprofen 600 mg tablet TAKE 1 TABLET BY MOUTH EVERY 6 HOURS NEEDED FOR PAIN 07/05 completed Not Available Not Available Not Available levofloxa yassine 500 mg tablet Take 1 tablet every 24 hours by oral route for 14 days. 08/01 completed Not Available Not Available Not Available methylpre dnisolone 4 mg tablets in a dose pack TAKE BY MOUTH DIRECTED ON INSIDE OF PACKAGE 01/14 completed Not Available Not Available Not Available albuterol sulfate HFA 90 mcg/actua tion aerosol inhaler INHALE 2 PUFFS BY MOUTH NEEDED FOR WHEEZING AND FOR SHORTNES S OF BREATH active Not Available Not Available No t Available ketoconaz ole 2 % topical cream APPLY TOPICALL Y TO THE AFFECTED AREA EVERY DAY 08/01 completed Not Available Not Available Not Available ondansetr on 4 mg disintegr ating tablet DISSOLVE 1 TABLET IN MOUTH EVERY 8 HOURS NEEDED FOR NAUSEA active Not Available Not Available No t Available cefdinir 300 mg capsule TAKE 1 CAPSULE BY MOUTH EVERY 12 HOURS FOR 10 DAYS 07/05 completed Not Available Not Available Not Available fluticaso ne propionat e 50 mcg/actua tion nasal spray,ian pension USE 1 SPRAY(S) IN EACH NOSTRIL TWICE DAILY NEEDED 01/14 completed Not Available Not Available Not Available medroxypr ogesteron e 150 mg/mL intramusc ular suspensio n ADMINIST ER 1 ML IN THE MUSCLE EVERY 3 MONTHS 08/01 completed Not Available Not Available Not Available doxycycli ne hyclate 100 mg tablet TAKE 1 TABLET BY MOUTH EVERY 12 HOURS FOR 10 DAYS 01/14 completed Not Available Not Available Not Available naproxen 500 mg tablet TAKE 1 TABLET BY MOUTH TWICE DAILY FOR 10 DAYS 01/14 completed Not Available Not Available Not Available metoclopr amide 10 mg tablet TAKE 1 TABLET BY MOUTH EVERY 8 HOURS NEEDED FOR NAUSEA OR VOMITING 09/14 completed Not Available Not Available Not Available amoxicill in 875 mg-potass ium clavulana te 125 mg tablet 10/02 completed Not Available Not Available Not Available oxycodone 5 mg tablet TAKE 1 TABLET BY MOUTH EVERY 4 HOURS 03/27 completed Not Available Not Available Not Available hydroxyzi ne pamoate 25 mg capsule 01/14 completed Not Available Not Available Not Available Slow Release Iron 160 mg (50 mg iron) tablet,ex tended release Take 1 tablet every day by oral route. 01/03 completed Not Available Not Available Not Available escitalop gary 10 mg tablet Take 1 tablet every day by oral route. 09/14 completed Not Available Not Available Not Available cyclobenz aprine 5 mg tablet 01/14 completed Not Available Not Available Not Available ciproflox acin 0.3 %-dexamet hasone 0.1 % ear drops,ian pension INSTILL 3 DROPS INTO EACH EAR TWICE DAILY FOR 7 DAYS 10/02 completed Not Available Not Available Not Available nitrofura ntoin monohydra te/macroc rystals 100 mg capsule TAKE 1 CAPSULE BY MOUTH EVERY 12 HOURS WITH FOOD FOR 5 DAYS 04/16 completed Not Available Not Available Not Available 03/27 completed Not Available Not Available Not Available Symbicort 80 mcg-4.5 mcg/actua tion HFA aerosol inhaler INHALE 2 PUFFS BY MOUTH TWICE DAILY active Not Available Not Available No t Available ferrous sulfate 15 mg iron (75 mg)/mL oral drops 07/05 completed Prescrib ed Elsewher e: Yes Loca tion: Moses anna [facility] odify By: [email or web address] Lee r DateTime : 01/14/20 10:45:00 AM Not Available Not Available Not Available Slow Fe 142 mg (45 mg iron) tablet,ex tended release Take 1 tablet every day by oral route. 01/03 completed Not Available Not Available Not Available Rochelle 30 mg tablet TAKE 1 TABLET BY MOUTH ONCE DAILY DIRECTED FOR 1 DAY 01/14 completed Not Available Not Available Not Available Nexplanon 68 mg subdermal implant Inject 1 implant by subcutan eous route. 01/14 completed nexplano n (supplie d by office) insert lot [id number] Exp 01/2026 Not Available Not Available Not Available 28 mg iron-800 mcg tablet 07/05 completed Prescrib ed Elsewher e: Yes [facility]: [email or web address] Lee r DateTime : 01/14/20 10:45:00 AM Not Available Not Available Not Available lidocaine 5 % topical ointment APPLY OINTMENT EXTERNAL LY TO RIBS THREE TIMES DAILY NEEDED 01/14 completed Not Available Not Available Not Available Fioricet 50 mg-300 mg-40 mg capsule Take 1 capsule every 4 hours by oral route. 2024 active Not Available Not Available Not Avai lable Tums Freshers 200 mg (as calcium carbonate 500 mg) chewable tablet 500 mg by oral route. 2023 active Not Available Not Available Not Avai lable Take Action 1.5 mg tablet TAKE 1 TABLET BY MOUTH ONCE DAILY 01/14 completed Not Available Not Available Not Available Zafemy 150 mcg-35 mcg/24 hr transderm al patch Apply 1 patch every week by transder mal route. 01/14 completed Not Available Not Available Not Available Vitals Date Recorded Body height Body mass index (BMI) Body weight Systolic blood pressure Diastolic blood pressure Provider Name and Address Organization Details Last Updated DateTime 02/04/2025 162.56 cm 28.2 kg/m2 02933.15 g 113 mm[Hg] 72 mm[Hg] Melyssa Santo [facility] 10:24:20 Social History Question Answer Notes LastModified by Organizat ion Details LastModified Time Tobacco Smoking Status Former Smoker Karina Heike ramos, [facility] 07/05/2021 09:06:21 What Is Your Level Of Alcohol Consumption? Occasional Information not available 07/05/2021 If You Are , What Was Your Level Of Alcohol Consumption Prior To ? None [email or web address] Information not available 07/05/2021 Are You Blind Or Do You Have Difficulty Seeing? No [email or web address] Information not available 07/05/2021 What Is Your Level Of Caffeine Consumption? Heavy Information not available 07/05/2021 In The 14 Days Before Symptom Onset, Have You Had Close Contact With A Laboratory-confir med COVID-19 While That Case Was Ill? No [email or web address] Information not available 07/05/2021 In The 14 Days Before Symptom Onset, Have You Had Close Contact With A Person Who Is Under Investigation For COVID-19 While That Person Was Ill? No [email or web address] Information not available 07/05/2021 Have You Been To An Area Known To Be High Risk For COVID-19? No [email or web address] Information not available 07/05/2021 Are You Deaf Or Do You Have Serious Difficulty Hearing? No [email or web address] Information not available 07/05/2021 What Type Of Diet Are You Following? REGULAR [email or web address] Information not available 07/05/2021 Which Illicit Or Recreational Drugs Have You Used? Marijuana [email or web address] Information not available 07/05/2021 Do You Or Have You Ever Used E-cigarettes Or Vape? Current User Of Electronic Cigarettes [email or web address] Information not available 07/05/2021 Have You Ever Been Counseled For Unhealthy Alcohol Use? No [email or web address] Information not available 07/05/2021 Do You Use Your Seat Belt Or Car Seat Routinely? Yes [email or web address] Information not available 07/05/2021 Do You Have Smoke And Carbon Monoxide Detectors In Your Home? Yes Information not available 07/05/2021 Do You Or Have You Ever Used Smokeless Tobacco? Never Used Smokeless Tobacco Information not available 07/05/2021 Do You Feel Stressed (tense, Restless, Nervous, Or Anxious, Or Unable To Sleep At Night)? [id number] [email or web address] Information not available 07/05/2021 Do You Use Any Illicit Or Recreational Drugs? Yes [email or web address] Information not available 07/05/2021 Do You Use Sunscreen Routinely? Yes [email or web address] Information not available 07/05/2021 Has Tobacco Cessation Counseling Been Provided? No [email or web address] Information not available 07/05/2021 Have You Used IV Drugs? No [email or web address] Information not available 07/05/2021 Do You Or Have You Ever Used Any Other Forms Of Tobacco Or Nicotine? Yes [email or web address] Information not available 07/05/2021 Sex: Unknown Functional Status Question Answer Note LastModified by Organizat ion Details LastModified Time Do you have difficulty walking or climbing stairs? No Information not available 12/06/2021 Are you able to walk? YESWOREST [email or web address] Information not available 07/05/2021 Are you able to care for yourself? Yes [email or web address] Information not available 12/06/2021 Do you have difficulty dressing or bathing? No [email or web address] Information not available 12/06/2021 What is your exercise level? Occasional [email or web address] Information not available 07/05/2021 Mental Status None recorded. Family History Relationship Description Onset Age of this Age Resolved Age Notes LastModified by Organization Details LastModified Time Father No current problems or disability [email or web address] Not available 05/2021 09:06:31 Mother No current problems or disability [email or web address] Not available 05/2021 09:06:31 Medical History Condition Response Allergies (Food, seasonal, environmental ) N Other N Breast Cancer N Drug/Latex Allergies/Reactions N Blood Transfusion N Dermatologic Disorders N Lung Disease Y Defects or Inherited Disease N Breast Problem N Gestational Diabetes Y Hematologic disorders N Anesthesia Complications N History of STI Y Deep Vein Thrombosis N Polycystic ovary syndrome N Anxiety Disorder Y Autoimmune disease N Arthritis N Infertility N Polyps N Acid Reflux (GERD) N History of abnormal pap N Cancer N Stroke N Varicosities N Neurologic/Epilepsy N Endometriosis N High Cholesterol N Headaches N Fibromyalgia N Kidney Disease N Heart Problems N Kidney or Bladder Problems N Thyroid Problems N GI Problems N Eating Disorder N Anemia Y Art (IVF or FET) N Psychiatric Illness N Ovarian Cancer N Diabetes N Pulmonary (TB, Asthma) N Hepatitis/Liver Disease N No Past Medical History N Eczema N Urinary Tract Infection N Abuse/Domestic Violence N Asthma N Trauma/Violence N Depression/ depression Y Heart Disease N Pre-Eclampsia N Hypertension N Osteoporosis N Thrombophilias N Gynecological History Statement/Question Response Abnormal Pap N Flow Moderate Date of Last Mammogram Date of LMP 12/11/2024 Was last menstrual period normal Y STIs/STDs Yes Current Control Method Are cycles usually normal Y Date of Last Colonoscopy Frequency of Cycle (Q days) 28 Sexually Active? Y Menses Monthly Y Date of DEXA bone scan Age of first menstrual cycle 11 Date of Last Pap Smear 01/27/2025 Sexual Problems? N Desired Control Method None LMP Approximate Obstetrics History GPAL:G 5 P 4 0 1 4 Type Value Full Term 4 Spontaneous 1 Living 4 Total 5 Past Encounters Encounter ID Performer Location Encounter Start Date Encounter Closed Date Diagnosis/Indication Diagnosis SNOMED-CT Code Diagnosis ICD10 Code Diagnosis Note [id number] Rola Francy [facility] [address] [address] 01/14/2025 11:51:17 01/14/2025 12:53:24 Uncertain viability of [id number] Z3A.01 [id number] Shawn Corona MD [facility] [address] [address] 01/14/2025 11:51:38 01/15/2025 09:38:25 Pain in pelvis 86161677 R10.2 25-year-ol d female presents for ER follow-up. She was in the ER with a very early gestation in some pelvic pain. She had an ultrasound . There was concern about a cornual . She had a repeat ultrasound here in our office today. Appears to be a normal intrauteri ne gestation with a subchorion ic hematoma. We discussed those results. We discussed future care. She will return in 2 weeks. [id number] Rola Sen [facility] [address] [address] 01/27/2025 14:42:15 01/27/2025 15:35:58 Abdominal pain in [id number] O99.891 Z3A.01 [id number] Shawn Corona MD [facility] [address] [address] 01/27/2025 14:55:24 01/27/2025 16:41:41 Amenorrhea 13980198 N91.2 Z32.01 this patient is a 25-year-ol d female who presents for amenorrhea . She is a positive test. Ultrasound revealed a 1st trimester gestation. Patient has no complaints . We talked about early care. Talked about genetic screening. We talked about her ultrasound results. We talked about the 12 week ultrasound that has genetic screening components . She was given recommenda tions on exercise, diet, over-the-c ounter medication s. We reviewed her obstetric history. We reviewed her medical history. We reviewed her social history. She will begin routine care at her next visit. [id number] Shawn Coroan MD [facility] [address] [address] 02/04/2025 10:09:23 02/04/2025 10:48:21 Headache [id number] R51.9 Nausea and vomiting [id number] R11.2 25-year-ol d female with severe nausea, 8 weeks gestation, hyperemesi s gravidarum . Patient states Zofran is not working anymore. She is unable to keep liquids down. We talked about various treatment options in detail. Spent over 20 minutes face-to-fa ce with the patient and on her care in total. We agreed to send to labor and delivery for IV fluids. Health Concerns Section Related Observation LastModified by Organization Detai ls LastModified Time None Recorded Concern Status LastModified by Organization Details LastModified Time None Recorded Payers Encounter Date Sequence Insurance Name Policy Number Policy Roberts Covered Member ID Roberts Member ID Guarantor Name 02/04/2025 1 [facility] (MEDICAID HMO) [id number] Yuni Mejia [id number] Mejia Notes Date Note Type Note Provider Name and Address Organization Details Recorded Time 02/04/2025 text/html 25-year-old female with severe nausea, 8 weeks gestation, hyperemesis gravidarum. Patient states Norah is not working anymore. She is unable to keep liquids down. We talked about various treatment options in detail. Spent over 20 minutes uoie-cc-llep with the patient and on her care in total. We agreed to send to labor and delivery for IV fluids. Shawn Corona MD [address], [place], [id number], [facility] 02/04/2025 10:46:36 OBGyn Episode No OBEpisode recorded.
--- OUTSIDE RECORDS SUMMARY | 2025-02-04 10:27 | XMS_ITS | Data Portability ---
Author Organization [facility] Address [address] [place] [address] [place] [address] Care Team Providers Care Computer Technologist Name Role Phone SEAN CARLOS Primary Care Provider Assessment No assessment recorded. Plan of Treatment Reminders Order Date Submit Date Provider Last Modified By Organization Details Last Modified Time Details Appointments OB PROBLEM 2024 09:00A Shana BRADLEY MD Not available Not available Not available U/S OB FIRST LOOK 2024 11:00A M ULTRASOUND Not available Not available Not available OB NEW 2024 11:30A M Annette BRADLEY MD Not available Not available Not available Lab None recorde d. Referral None recorde d. Procedures None recorde d. Surgeries None recorde d. Imaging US, obstetr ic, transva ginal 2024 025 [email or web address], [place], [address], 01/27/2025 22:04:56 US, obstetr ic, transva ginal 2024 025 [email or web address], [place], [address], 01/14/2025 20:59:59 Medication Orders prometh azine 25 mg tablet 2024 025 [facility], [address] [facility], [place], [address], 02/04/2025 10:40:13 Fiorice t 50 mg-300 mg-40 mg capsule 2024 025 [facility], [address] [facility], [place], [address], 02/04/2025 10:39:21 Patient TargetsNo targets recorded. Patient InstructionsNo instructions recorded. Reason for Referral None Reported. Results Created Date Observation Date Name Description Value Unit Range Abnormal Flag Note LastModifiedBy Organization Detail LastModifiedTime 01/28/2001/27/2025 IMAGE GUIDE D PAP, REFLE X HPV IF ASCUS ONLY image guided Pap, reflex HPV ASCUS only SEE RESULT S BELOW CASE REPOR T: Cytol ogy Gynec ologi gonsalo Repor t Case: [id number] Autho jayshree dominguez Provi mic: Latoya Bradley MD Colle cted: 01/27 1722 Order ing Locat ion: [place] [facility] Recei sunil: 01/28 0924 First Scree n: Cornelia Trimble , CT Speci men: Ranjit saroj Pap - Image d, Cervi x STATE MENT OF ADEQU ACY: Satis facto ry for evalu ation Trans forma tion zone compo nent prese nt ----- ----- ----- ----- ----- ----- ----- ----- ----- ----- ----- ----- ----- ----- ----- ----- ----- ---- FINAL DIAGN OSIS: Negat angel for Intra epith elial William piper or Florecita almanzar (NIL) . Elect mat del castillo by Cornelia Trimble , CT on 025 at 1058 CDT ----- ----- ----- ----- ----- ----- ----- ----- ----- ----- ----- ----- ----- ----- ----- ----- ----- ---- COMME NT: This speci men was revie wed by a Cytot echno logis t and/o r Patho logis t (as indic ated in this repor t) after evalu ation using the Thinp rep Imagi ng Syste m. CLINI GONSALO INFOR MATIO N: Menst rual Statu s: LMP (if appli cable ): 2024 Clini gonsalo Histo ry/Pr eviou s Pap: Type of Neopl chance (if appli cable ): Signi fican t Clini gonsalo Findi ngs: Other Histo ry: Hormo jay (if appli cable ): PAP EDUCA ROLAND L NOTE: The Pap Test is a scree saroj test with an inher ent false negat angel rate. Liqui d-bas ed sampl ing may decre ase, but will not elimi tasneem, false negat angel resul ts. A negat angel resul t does not precl ude the prese nce and/o r devel opmen t of disea se, since the prese nce of abnor mal cells in the sampl e depen ds on the locat ion of the lesio n and sampl ing techn ique. Mikel nued regul ar scree saroj is the best metho d of cance r preve ntion . If repor greg cytol ogic findi ng do not corre late with physi gonsalo and/o r histo rical findi ngs, furth er inves tigat ion is recom thais d, as clini kentrell rosario nted. Not Available [facility] (Lab) [address] [facility], [place], [address], 02/01/2025 12:02:58 01/28/20 25 01/27/2025 TRICH OMONA S VAGIN CATHI (RRNA ) trichomonas vaginalis ribosomal RNA (rrna) Negati ve negati ve Not Available [facility] (Lab) [address] [place], [address], 02/01/2025 12:02:58 01/28/20 25 01/27/2025 CT/GC (JOHN) , THINP REP VIAL chlamydia trachomatis, PCR Negati ve negati ve Not Available [facility] (Lab) [address] [facility], [place], [address], 02/01/2025 12:02:59 01/28/20 25 01/27/2025 CT/GC (JOHN) , THINP REP VIAL neisseria gonorrhoeae, PCR Negati ve negati ve Not Available [facility] (Lab) [address] [facility], [place], [address], 02/01/2025 12:02:59 01/15/20 25 01/14/2025 US, pelvi s No observ ation record ed. [email or web address], [place], [address], 01/14/2025 22:26:54 01/15/20 25 01/14/2025 US, obste tric, trans vagin al No observ ation record ed. [email or web address], [place], [address], 01/14/2025 13:55:51 01/28/20 25 01/27/2025 US, obste tric, trans vagin al No observ ation record ed. [place] [address], [place], [address], 01/27/2025 18:32:06 01/28/20 25 01/27/2025 US, obste tric, trans vagin al No observ ation record ed. [email or web address], [place], [address], 01/27/2025 22:14:08 Result Notes None recorded. 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 10:15:29 Gestatio nal diabetes mellitus 85996308 Completed 201907/05/2021 Gestatio nal diabetes mellitus in pregnanc y, diet controll ed;Recor ded Elsewher e: No Locat ion: [facility] S ource: [employer] Installer Helper yvrose: N Natalyati ce ID: 0001 Gigi lable Time: 11:45:00 AM Karina ramos [facility] 10:15:25 Gestatio n period, 38 weeks 54303807 Completed 201907/05/2021 38 weeks gestatio n of pregnanc y;Record ed Elsewher e: No Locat ion: [facility] S ource: [employer] Installer Helper yvrose: N Natalyati ce ID: 0001 Gigi lable Time: 11:30:00 AM Karina ramos [facility] 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 1 10:15:27 Amenorrh ea 66670462 Completed 202007/10/2021 Tammi Jones null, [facility] 1 13:08:35 Pregnanc y 69183812 Completed 202003/29/2022 Karina Burroughs null, [facility] 4 11:00:49 Hypereme sis 767539792 Completed phenerga n now prn Asia Choi hl null, [facility] 2 16:43:51 Anxiety in pregnanc y 16771418804 109 Completed will continue to monitor Asia Choi hl null, [facility] 2 16:43:51 Past pregnanc y history of gestatio nal diabetes mellitus 524466840 Completed Early 1 hr GTT @ 20wks 11/03 APPT Asia Bermudezganesh hl null, [facility] 2 16:43:51 Spinal muscular atrophy 5059131 Completed Carrier - Not in contact with FOB. Asia Bermudezganesh hl null, [facility] 2 16:43:51 Pregnanc y 43232099 Completed 202304/22/2024 Karina Burroughs null, [facility] 4 11:00:49 Anxiety 06060144 Completed prozac Karina Burroughs null, [facility] 4 11:00:46 Nausea 317474861 Completed d/c zofran pump 11/08 per pt request Karina ramos, [facility] 4 11:00:46 Postpart um hemorrha ge 00614322 Completed 2017 with d&c Karina ramos, [facility] 4 11:00:46 Headache 65933343 Active 2023 Karina ramos, [facility] 5 16:19:28 Pregnanc y 07360622 Active 2023 Karina ramos, [facility] 5 16:19:28 Notes:Order faxed to [facility] 08/10 for PICC line, and home health already caring for ptHilda Gilbert RN at [phone] Problem Notes None recorded. Procedures Surgical History Date Name Laterality Status Provider Name and Address Organization Details Recorded Time 5 Date of Last Pap Smear completed Karina Burroughs [facility] 01/28/2025 11:19:42 4 Nexplanon Removal completed Shawn Bradley MD [address], [place], [address], [facility] 08/05/2024 15:09:58 4 Control Implant Insertion completed Anju Mcnamara CNM [address], [place], [address], [facility] 05/08/2024 17:59:34 8 Dilation and Curettage completed Karina Burroughs [facility] 07/05/2021 10:17:50 Imaging Results Imaging Date Name Status LastModified by Organization Details LastModified Time 01/14/2025 US, pelvis completed [email or web address], [place], [address], 01/14/2025 22:26:54 01/14/2025 US, obstetric, transvaginal completed [email or web address], [place], [address], 01/14/2025 13:55:51 01/27/2025 US, obstetric, transvaginal completed [email or web address], [place], [address], 01/27/2025 18:32:06 01/27/2025 US, obstetric, transvaginal completed [email or web address] [facility], [place], [address], 01/27/2025 22:14:08 Procedure Notes None recorded. Medical Equipment None Reported. Allergies Allergen ID Allergen Name Allergen Category Reaction Reaction Severity Criticality Documentation Date Start Date Code Code System Note Provider Name and Address Organization Details Recorded Time 04081 terbutali ne medicatio n anaphylax is Not available Not available 01/27/20252021 06763 RxNorm Karina ramos, [facility] 16:19:27 Medications Name Sig Start Date Stop [...] mg)/mL oral drops 07/05 completed Prescrib ed Pancho e: Yes Loca tion: Jaelyn castillo [facility] M odify By: [email or web address] Encounte r DateTime : 01/14/20 10:45:00 AM Not [...] n (supplie d by office) insert lot [id number] Exp 01/2026 Not Available Not Available Not Available 28 mg iron-800 mcg tablet 07/05 completed Prescrib ed Pancho e: Yes Loca tion: [facility] Shnaa odify By: prabhjot barrera DateTime : 01/14/20 10:45:00 AM Not Available [...] and Address Organization Details Last Updated DateTime 01/14/2025 162.56 cm 27.3 kg/m2 62992.19 g 112 mm[Hg] 72 mm[Hg] Melyssa Santo [place] - [facility] 13:05:16 Date Recorded Body height Body mass index (BMI) Body weight Systolic blood pressure Diastolic blood pressure Provider Name and Address Organization Details Last Updated DateTime 01/27/2025 162.56 cm 27.8 kg/m2 92871.96 g 115 mm[Hg] 74 mm[Hg] Karina Burroughs [facility] 5 16:19:09 Date Recorded Body height Body mass index (BMI) Body weight Systolic blood pressure Diastolic blood pressure Provider Name and Address Organization Details Last Updated DateTime 02/04/2025 162.56 cm 28.2 kg/m2 96529.15 g 113 mm[Hg] 72 mm[Hg] Melyssa Gal [facility] 5 10:24:20 Social History Question Answer Notes LastModified by Organizat ion Details LastModified Time Tobacco Smoking Status Former Smoker Karina Burroughs null, [facility] 07/05/2021 09:06:21 What Is Your Level Of Alcohol Consumption? Occasional [email or web address] Information not available 07/05/2021 If You Are , What Was Your Level Of Alcohol Consumption Prior To ? None [email or web address] Information not available 07/05/2021 Are You Blind Or Do You Have Difficulty Seeing? No Information not available 07/05/2021 What Is Your Level Of Caffeine Consumption? Heavy Information not available 07/05/2021 In The 14 Days Before Symptom Onset, Have You Had Close Contact With A Laboratory-confir med COVID-19 While That Case Was Ill? No [email or web address] Information not available 07/05/2021 In The 14 Days Before Symptom Onset, Have You Had Close Contact With A Person Who Is Under Investigation For COVID-19 While That Person Was Ill? No Information not available 07/05/2021 Have You Been To An Area Known To Be High Risk For COVID-19? No [email or web address] Information not available 07/05/2021 Are You Deaf Or Do You Have Serious Difficulty Hearing? No [email or web address] Information not available 07/05/2021 What Type Of Diet Are You Following? REGULAR [email or web address] Information not available 07/05/2021 Which Illicit Or Recreational Drugs Have You Used? Marijuana [email or web address] Information not available 07/05/2021 Do You Or Have You Ever Used E-cigarettes Or Vape? Current User Of Electronic Cigarettes [email or web address] Information not available 07/05/2021 Have You Ever Been Counseled For Unhealthy Alcohol Use? No [email or web address] Information not available 07/05/2021 Do You Use Your Seat Belt Or Car Seat Routinely? Yes [email or web address] Information not available 07/05/2021 Do You Have Smoke And Carbon Monoxide Detectors In Your Home? Yes [email or web address] Information not available 07/05/2021 Do You Or Have You Ever Used Smokeless Tobacco? Never Used Smokeless Tobacco [email or web address] Information not available 07/05/2021 Do You Feel Stressed (tense, Restless, Nervous, Or Anxious, Or Unable To Sleep At Night)? [id number] Information not available 07/05/2021 Do You Use Any Illicit Or Recreational Drugs? Yes [email or web address] Information not available 07/05/2021 Do You Use Sunscreen Routinely? Yes [email or web address] Information not available 07/05/2021 Has Tobacco Cessation Counseling Been Provided? No [email or web address] Information not available 07/05/2021 Have You Used IV Drugs? No [email or web address] Information not available 07/05/2021 Do You Or Have You Ever Used Any Other Forms Of Tobacco Or Nicotine? Yes [email or web address] Information not available 07/05/2021 Sex: Unknown Functional Status Question Answer Note LastModified by Organizat ion Details LastModified Time Do you have difficulty walking or climbing stairs? No [email or web address] Information not available 12/06/2021 Are you able to walk? YESWOREST [email or web address] Information not available 07/05/2021 Are you able to care for yourself? Yes [email or web address] Information not available 12/06/2021 Do you have difficulty dressing or bathing? No [email or web address] Information not available 12/06/2021 What is your exercise level? Occasional [email or web address] Information not available 07/05/2021 Mental Status None recorded. Family History Relationship Description Onset Age of this Age Resolved Age Notes LastModified by Organization Details LastModified Time Father No current problems or disability [email or web address] Not available 05/2021 09:06:31 Mother No current problems or disability [email or web address] Not available 05/2021 09:06:31 Medical History Condition [...] SNOMED-CT Code Diagnosis ICD10 Code Diagnosis Note [id number] Anju Mcnamara CNM [place] [address] [address] 07/05/2021 09:58:05 07/05/2021 11:16:35 Pityriasis versicolor 92247033 B36.0 also wash with selsum blue shampoo Vaginitis 22089807 N76.0 Nausea 649261349 R11.0 [facility] 368700332 Z30.9 35379 Betsey Mahnaz [place] [address] [address] 08/02/2021 10:30:44 08/04/2021 10:07:43 Severe hyperemesis gravidarum 962619326 O21.1 Pt has not held anything down for more than 24 hours. Sent to ER for hydration and evaluation . We have discussed dietary precaution s. Recommend very small frequent meals. Avoid greasy, spicy or trigger foods. I do believe she may benefit from home health for fluids and IV antiemetic s. [address] [facility] [address],[place] [address] 08/08/2021 10:22:11 08/08/2021 13:42:05 Depressive disorder 37804296 F32.A in an emergency mercy info given and kettler reminder, if increased thoughts or plan to hospital for immediate care, pt agrees, continue counseling , will try lexapro once can keep down fluids, se reviewed Gynecologi c examination 08153171 Z01.419 Z11.3 Z11.8 Amenorrhea 54364436 N91. 2 plan NOB and first look Nausea and vomiting 1693 2000 R11.2 unable to leave urine, unable at this time to go to LD, encouraged to go to LD for hydration, working on home health services, [address] Ivana Farnsworth [place] [address],[place] [address] 08/08/2021 10:21:08 08/08/2021 10:53:33 Routine care 131408197 Z34.91 Z3A.08 [id number] Anju Mcnamara [facility] [address],[place] [address] 09/13/2021 14:51:52 09/14/2021 13:44:23 test positive 916722738 Z32.01 Routine an tenatal care 348532765 Z34.91 [id number] Darlene De La Torre [place] [address],[place] [address] 09/13/2021 15:35:32 09/13/2021 16:26:27 screening 162153253 Z36.82 62415 Betsey Joya [place] [address],[place] [address] 10/09/2021 12:26:15 10/09/2021 17:39:00 Urinary symptoms 056877947 R39.9 Fatigue 99050763 R53.83 Venereal d isease screening 553889171 Z11.3 [id number] Anju Mcnamara [facility] [address],[place] [address] 10/16/2021 11:57:23 10/16/2021 12:48:11 Routine care 601072932 Z34.91 64340 Anju Mcnamara [facility] [address],[place] [address] 11/03/2021 11:32:21 11/03/2021 13:52:13 Routine care 592100836 Z34.[id number] [facility] [address],[place] [address] 11/03/2021 11:31:37 11/03/2021 12:34:34 screening for malformation 488176935 Z36.3 [id number] Anju Mcnamara [facility] [address],[place] [address] 12/06/2021 14:46:58 12/06/2021 16:07:59 Routine care 803481228 Z34.91 Iron defic iency anemia 95018367 D50.9 Anxiety 93386029 F41.9 66747 [facility] [address],[place] [address] 12/06/2021 14:46:10 12/06/2021 15:18:30 condition affecting obstetrical care of mother 006486818 O35.8XX0 Z3A.25 02235 Anju Mcnamara [facility] [address],[place] [address] 12/22/2021 11:04:34 12/22/2021 11:32:13 Routine care 852247461 Z34.91 18361 Darlene [facility] [address] [place] [address] 01/03/2022 14:21:04 01/03/2022 15:48:26 Uterine size for dates discrepancy 633168638 O26.843 Z3A.29 [id number] Anju Mcnamara [facility] [address],[place] [address] 01/03/2022 14:21:33 01/03/2022 15:13:41 Routine care 728033483 Z34.91 70131 Anju Mcnamara [facility] [address],[place] [address] 01/17/2022 16:53:11 01/17/2022 17:24:14 Routine care 252048692 Z34.91 Persistent cough 4204733 02 R05.3 43897 [facility] [address],[place] [address] 02/06/2022 09:22:49 02/06/2022 09:55:25 Routine care 375729189 Z34.93 02383 [facility] [address] [place] [address] 02/13/2022 14:43:16 02/13/2022 15:26:49 Poor growth affecting management 320966933 O36.5930 Z3A.35 73483 Anju Mcnamara [facility] [address],[place] [address] 02/16/2022 15:13:14 02/16/2022 15:58:27 Routine care 822657384 Z34.91 14624 Anju Mcnamara [facility] [address] [place] [address] 03/02/2022 15:02:03 03/02/2022 15:28:58 Routine care 642923683 Z34.91 [id number] BOLA Miller [place] [address] [place] [address] 03/27/2022 10:37:37 03/27/2022 11:14:18 Mixed anxiety and depressive disorder 399049199 F41.8 Chest pain 85984516 R07. 9 She has a hx of anxiety/de pressionNe w onset chest pain, with episodes of feeling SOB. Chest pain is constant , does not come and go.She has been having visual changes, and states she feels like she is having a seizure at times.I discussed with patient given her new onset chest pain and SOB she should be seen in the ED for evaluation . We discussed needs evaluation for blood clot given increased risk in the period. SOB comes and goes, does not currently feel SOB talking to me.We discussed need to r/o other causes of chest pain/SOB prior to starting treatment for anxiety/de pression.Bianca peng has a motorcycle delivery driver that will take her to [place] ED (vitals are WNL, no acute distress noted).She has no thoughts of harming herself or others.She will call the office to schedule an appointmen t to be seen after ED evaluation . We discussed at that time can start therapy for depression /anxiety. RTC after cleared by ED Time spent with the patient was 20 minutes [id number] Shawn Bradley MD [place] [address] [address] 04/16/2022 15:11:58 04/16/2022 17:11:09 Mixed anxiety and depressive disorder 555550417 F41.8 this patient is a 22-year-ol d female who presents for follow-up for panic. She has some combined depression and panic. She is having episodes of Jazmine M discomfort . She is suffering. We talked about treatment. Talked about medication s. She agreed to start Zoloft 50 mg. We also talked about bleeding. She continues to bleed is bleeding well beyond her previous experience s. She will get pelvic ultrasound . Will follow-up on that ultrasound . We spent over 25 minutes face-to-fa ce. More than 50% was counseling . [id number] Ivana Farnsworth [place] [address] [address] 04/16/2022 16:43:28 04/16/2022 17:34:26 Abnormal uterine bleeding 3675758823 9100 N93.9 [id number] BOLA Miller [place] [address] [address] 06/19/2022 17:24:32 06/19/2022 18:03:44 Abnormal uterine bleeding 5008664776 9100 N93.9 We discussed likely spotting is due to Depo-Prove raSTI endocervic al testing sentUrine hcg (-)Pelvic u/s ordered to assess pelvic painWe discussed all forms of BC in-depth Discussed all control options in depth and pt is interested in Nexplanon. Discussed all risks and benefits including irregular unschedule d bleeding. Pt verbalized understand ing and would like to proceed. She is aware that she needs to call us on the 1st day of her period to schedule placement. She needs to abstain from intercours e x 2 weeks - RTC for bhcg after 2 weeks - then insert nexplanon the next day. Patient agrees to this plan, will abstain. We discussed risk of irregular bleeding with nexplanon as well. She is feeling okay, anxiety has improved. No suicidal thoughts or thoughts of harming others. Has not needed to take the zoloft. Encouraged counseling . EPDS score 9 ED precaution s given - to go to the ED with any heavy vaginal bleeding, extreme pains, CHAPIS, etc Time spent in visit is a total of 35 mins with at least 50% of visit consisting of counseling and review of plan of care. Pain in pelvis 69785425 R10.2 Contracept ion care management 873309036 Z30.9 Irregular periods 359170 07 N92.6 Venereal d isease screening 947478800 Z11.3 Anxiety 46279394 F41.9 [id number] Darlene De La Torre [place] [address] [address] 10/02/2023 13:44:25 10/02/2023 14:07:54 screening 287992114 Z36.82 Z36.87 Z3A.11 [id number] Anju Mcnamara CNM [place] [address] [address] 10/02/2023 13:46:45 10/02/2023 14:50:25 Amenorrhea 25486967 N91.2 plan NOB and first look NIPT and labs todaywants tubal ligation after delivery Gynecologi c examination 91251076 Z01.419 Z11.3 Z11.8 Nausea and vomiting 1693 2000 R11.2 [id number] Anju Mcnamara [facility] [address],[place] [address] 11/01/2023 11:17:59 11/01/2023 13:01:44 Gestation period, 16 weeks 81287234 Z3A.16 Anxiety [id number] F41.9 [id number] [facility] [address],[place] [address] 11/27/2023 14:04:37 11/27/2023 15:16:15 screening for malformation [id number] Z36.3 Z3A.19 [id number] Anju Mcnamara [facility] [address],[place] [address] 11/27/2023 14:13:33 11/27/2023 15:31:00 Routine care [id number] Z34.91 [id number] Anju Mcnamara [facility] [address],[place] [address] 12/25/2023 14:51:56 12/25/2023 15:52:45 Routine care [id number] Z34.91 [id number] Anju Mcnamara [facility] [address],[place] [address] 02/14/2024 14:13:14 02/14/2024 16:07:12 Routine care [id number] Z34.91 [id number] Anju Mcnamara [facility] [address] [place] [address] 03/27/2024 11:47:21 03/27/2024 12:30:07 Routine care [id number] Z34.91 [id number] Anju Mcnamara [facility] [address],[place] [address] 05/08/2024 14:54:41 05/11/2024 09:00:41 Screening procedure [id number] Z13.9 Insertion of subcutaneous contraceptive [id number] Z30.46 reviewed se risks and benefits, bandage until skin closes, pressure bandage x 24 hourswill schedule bilateral salpingect kateryna with dr. bradley care [id number] Z39.2 continue multivitam in Sterilizat ion requested [id number] Z30.2 [id number] Shawn Bradley MD [facility] [address],[place] [address] 08/05/2024 13:57:53 08/05/2024 15:11:54 Contraception care management [id number] Z30.9 Nexplanon removed without complicati ons. She tolerated well. [id number] Rola Sen [facility] [address],[place] [address] 01/14/2025 11:51:17 01/14/2025 12:53:24 Uncertain viability of [id number] Z3A.01 [id number] Shawn Bradley MD [facility] [address],[place] [address] 01/14/2025 11:51:38 01/15/2025 09:38:25 Pain in pelvis 25295571 R10.2 25-year-ol d female presents for ER [...] care. She will return in 2 weeks. [id number] Rola Sen [facility] [address],[place] [address] 01/27/2025 14:42:15 01/27/2025 15:35:58 Abdominal pain in [id number] O99.891 Z3A.01 [id number] Shawn Bradley MD [facility] [address],[place] [address] 01/27/2025 14:55:24 01/27/2025 16:41:41 Amenorrhea 56674314 N91.2 Z32.01 this patient is a 25-year-ol [...] begin routine care at her next visit. [id number] Shawn Bradley MD [facility] [address],[place] [address] 02/04/2025 10:09:23 02/04/2025 10:48:21 Headache [id number] R51.9 Nausea and vomiting 1693 2000 R11.2 [...] by Organization Details LastModified Time None Recorded Advance Directives Directive None Recorded Payers Encounter Date Sequence Insurance Name Policy Number Policy Roberts Covered Member ID Roberts Member ID Guarantor Name 01/14/2025 1 [facility] (MEDICAID HMO) [id number] Yuni Brown [id number] [facility] 01/14/2025 1 [facility] (MEDICAID HMO) [id number] Yuni Brown [id number] Yuni Brown 01/27/2025 1 [facility] (MEDICAID HMO) [id number] Yuni Brown [id number] Yuni Brown 01/27/2025 1 [facility] (MEDICAID HMO) [id number] 0003 Yuni Brown [id number] Yuni Brown 02/04/2025 1 [facility] (MEDICAID HMO) [id number] 0003 Yuni Mejia [id number] Yuni Mejia Notes Date Note Type Note Provider Name and Address Organization Details Recorded Time 01/14/2025 text/html 25-year-old neal lane presents for ER follow-up. She was in the ER with a very early gestation in some pelvic pain. She had an ultrasound. There was concern about a cornual . She had a repeat ultrasound here in our office today. Appears to be a normal intrauterine gestation with a subchorionic hematoma. We discussed those results. We discussed future care. She will return in 2 weeks. Shawn Bradley MD [address], [place], [address], [facility] 01/14/2025 21:27:11 01/27/2025 text/html this patient is a 25-year-old female who presents for amenorrhea. She is a positive test. Ultrasound revealed a 1st trimester gestation. Patient has no complaints. We talked about early care. Talked about genetic screening. We talked about her ultrasound results. We talked about the 12 week ultrasound that has genetic screening components. She was given recommendations on exercise, diet, [id number]-[id number] medications. We reviewed her obstetric history. We reviewed her medical history. We reviewed her social history. She will begin routine care at her next visit. Shawn Bradley MD [address], [place], [address], [facility] 01/27/2025 16:36:44 02/04/2025 text/html 25-year-old neal lane with severe nausea, 8 weeks gestation, hyperemesis gravidarum. Patient states Zofran is not working anymore. She is unable to keep liquids down. We talked about various treatment options in detail. Spent over 20 minutes [id number] with the patient and on her care in total. We agreed to send to labor and delivery for IV fluids. Shawn Bradley MD [address], [place], [address], [facility] 02/04/2025 10:46:36 OBGyn Episode Ob Episode Information Episode Created Date Number of Fetuses Patient Bloodtype Patient rh Status Prepregnancy Weight lbs Domestic Partner Domestic Partner Phone Father Name Lead Java Programmer Status 03/14/20 20 1 CLOSED Fetus Data First Name Last Name Admitted to NICU Weight (g) Sex Living Outcome Pediatric Complications Fetus ID Race Codes Race Delivery Type 3259.96 5704 F Full Term 1540 Vaginal Delivery Ujn Calculation Initial Jun Date Initial Exam Date Initial Exam Provider Initial Ultrasound Date Last Menstrual Period Date Ultra Sound Weeks Gestation 0 Eighteen To Twenty Week Jun Update Ultra Sound Date Fundal Height At Umbil Quickening Date Ultra Sound Latest Weeks Gestation Final Jun Confirmed By Final Jun Confirmed Date Final Jun Date Ultra Sound Latest Days Gestation 0 0 Menstrual History Last Menstrual Date Menses Monthly On Bcp Conception Prior Menses Frequency Hcg Plus Date Menarche Onset Age Delivery Information Delivery Date Delivery Type Labor Anesthesia Weeks Gestation Incision Type Labor Labor Length Hrs Delivered By Post Complications Tubal Sterilization Discharge Date Comments 0 40 +GBS / had to have blood transfusi on/ post depressio n Discharge Information Feeding Method Contraceptive Method Maternal HG B and HCT Levels Ob Episode Information Episode Created Date Number of Fetuses Patient Bloodtype Patient rh Status Prepregnancy Weight lbs Domestic Partner Domestic Partner Phone Father Name Lead Java Programmer Status 07/05/20 21 1 CLOSED Fetus Data First Name Last Name Admitted to NICU Weight (g) Sex Living Outcome Pediatric Complications Fetus ID Race Codes Race Delivery Type , Spontane ous [id number] Jun Calculation Initial Jun Date Initial Exam Date Initial Exam Provider Initial Ultrasound Date Last Menstrual Period Date Ultra Sound Weeks Gestation 0 Eighteen To Twenty Week Jun Update Ultra Sound Date Fundal Height At Umbil Quickening Date Ultra Sound Latest Weeks Gestation Final Jun Confirmed By Final Jun Confirmed Date Final Jun Date Ultra Sound Latest Days Gestation 0 0 Menstrual History Last Menstrual Date Menses Monthly On Bcp Conception Prior Menses Frequency Hcg Plus Date Menarche Onset Age Delivery Information Delivery Date Delivery Type Labor Anesthesia Weeks Gestation Incision Type Labor Labor Length Hrs Delivered By Post Complications Tubal Sterilization Discharge Date Comments 7 Discharge Information Feeding Method Contraceptive Method Maternal HG B and HCT Levels Ob Episode Information Episode Created Date Number of Fetuses Patient Bloodtype Patient rh Status Prepregnancy Weight lbs Domestic Partner Domestic Partner Phone Father Name Lead Java Programmer Status 09/13/20 21 1 B Positive 103 diontre silva CLOSED Fetus Data First Name Last Name Admitted to NICU Weight (g) Sex Living Outcome Pediatric Complications Fetus ID Race Codes Race Delivery Type 3316.89 15 F true Full Term terminal meconium 27796 Vaginal Delivery Problems Problem Notes EIF in [place] noted03/05 PIH WNL, UC WNL Problem Name Start Date End Date Resolution Snomed Code Not e 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 Past history of gestational diabetes mellitus [id number] Early 1 hr GTT @ 20wks 11/03 APPT Hyperemesis [id number] phenerga n now prn Anxiety in [id number] will continue to monitor Jun Calculation Initial Jun Date Initial Exam Date Initial Exam Provider Initial Ultrasound Date Last Menstrual Period Date Ultra Sound Weeks Gestation 03/16/2022 09/13/2021 08/08/2021 06/23/2021 8 Eighteen To Twenty Week Jun Update Ultra Sound Date Fundal Height At Umbil Quickening Date Ultra Sound Latest Weeks Gestation Final Jun Confirmed By Final Jun Confirmed Date Final Jun Date Ultra Sound Latest Days Gestation 0 [id number] 09/14/2021 03/16/20 22 0 Pre- Flowsheet Flowsheet Date 09/13/2021 Gibson Score Blood Edema Fundus Height Fundus Units Glucose Ketones Leukocytes Nitrite Labor Signs Protein Cervic Dilation Cervic Effacement Cervic Station Type Weight in lbs Pre/Post Dialysis Refused BP Diastolic BP Location Tested BP Systolic BP Type Fetus Heart Rate Present Fetus Movement Comments Flowsheet Date 09/13/2021 Gibson Score Blood Edema Fundus Height Fundus Units Glucose Ketones Leukocytes Nitrite Labor Signs Protein Cervic Dilation Cervic Effacement Cervic Station neg none trace Type Weight in lbs Pre/Post Dialysis Refused Weight 110.186161203625 BP Diastolic BP Location Tested BP Systolic BP Type 68 99 Fetus Heart Rate Present Fetus Movement A No Comments pt presents for new ob, NT w nl, pt feeling much better no longer so sick, occ back pain will send urine and do US + right CVA tenderness, first daughter diagnosed with autism, and hx pp hemorrhage after delivery, hx of anxiety, did not start lexapro as prescribed, declines further interventionhx hyperemesis during all 3 pregnancies, hx gestational diabetes Flowsheet Date 10/09/2021 Gibson Score Blood Edema Fundus Height Fundus Units Glucose Ketones Leukocytes Nitrite Labor Signs Protein Cervic Dilation Cervic Effacement Cervic Station none trace Type Weight in lbs Pre/Post Dialysis Refused Weight 119.110191746658 BP Diastolic BP Location Tested BP Systolic BP Type 66 110 Fetus Heart Rate Present Fetus Movement A No Comments Pt here for STD screen. Stat es antibiotics for gonorrhea were not sent out. Urine to be sent for std screen and culture. Pt has increased fatigue and is concerned about anemia. Will check cbc and tsh today. Flowsheet Date 10/16/2021 Gibson Score Blood Edema Fundus Height Fundus Units Glucose Ketones Leukocytes Nitrite Labor Signs Protein Cervic Dilation Cervic Effacement Cervic Station neg none trace Type Weight in lbs Pre/Post Dialysis Refused Weight 120.245407892894 BP Diastolic BP Location Tested BP Systolic BP Type 73 104 Fetus Heart Rate Present Fetus Movement A Yes Comments STD test negative, no longer active with that partner, vaping daily, having a hard time even reducing amount, encouraged cessation, pt unable to drink water but discussed other liquids, wrote not inability to work due to lifting restrictions, hyperemesis f/u anatomy scan, blood work today, precautions reviewed Flowsheet Date 11/03/2021 Gibson Score Blood Edema Fundus Height Fundus Units Glucose Ketones Leukocytes Nitrite Labor Signs Protein Cervic Dilation Cervic Effacement Cervic Station Type Weight in lbs Pre/Post Dialysis Refused BP Diastolic BP Location Tested BP Systolic BP Type Fetus Heart Rate Present Fetus Movement Comments Flowsheet Date 11/03/2021 Gibson Score Blood Edema Fundus Height Fundus Units Glucose Ketones Leukocytes Nitrite Labor Signs Protein Cervic Dilation Cervic Effacement Cervic Station neg none trace Type Weight in lbs Pre/Post Dialysis Refused Weight 124.424308958610 BP Diastolic BP Location Tested BP Systolic BP Type 61 97 Fetus Heart Rate Present Fetus Movement A Yes Comments anatomy complete, 45% efw LV EIF, rpt 4 weeks precautions reviewed, no complaints early gct today Flowsheet Date 12/06/2021 Gibson Score Blood Edema Fundus Height Fundus Units Glucose Ketones Leukocytes Nitrite Labor Signs Protein Cervic Dilation Cervic Effacement Cervic Station Type Weight in lbs Pre/Post Dialysis Refused BP Diastolic BP Location Tested BP Systolic BP Type Fetus Heart Rate Present Fetus Movement Comments Flowsheet Date 12/06/2021 Gibson Score Blood Edema Fundus Height Fundus Units Glucose Ketones Leukocytes Nitrite Labor Signs Protein Cervic Dilation Cervic Effacement Cervic Station neg none trace Type Weight in lbs Pre/Post Dialysis Refused Weight 137.259720632159 BP Diastolic BP Location Tested BP Systolic BP Type 66 99 Fetus Heart Rate Present Fetus Movement A Yes Comments patient is having anxiety an d discharge. stopped zoloft didnt like how she felt will try prozac, no suicidal thoughts but living situation isnt ideal, applied for housing today, reviewed se and any suicidal thoughts to ED med check next visit with appt and rpt GCT, Stable EIF LV, EFW 35% Flowsheet Date 12/22/2021 Gibson Score Blood Edema Fundus Height Fundus Units Glucose Ketones Leukocytes Nitrite Labor Signs Protein Cervic Dilation Cervic Effacement Cervic Station trace 25 trace Type Weight in lbs Pre/Post Dialysis Refused Weight 145.6906824430 BP Diastolic BP Location Tested BP Systolic BP Type 71 105 Fetus Heart Rate Present A 131 Fetus Movement A Yes Comments PATIENT STATES THAT WAS IN E R FOR CRAMPING. PATIENT STATES THAT HAVING CRAMPING, PRESSURE, AND SWELLING. not taking iron or prozac, worried about taking meds discussed benefit suraj iron, precautions and PTL precautions reviewed, passed GCT, f/u us next visit for growth Flowsheet Date 01/03/2022 Gibson Score Blood Edema Fundus Height Fundus Units Glucose Ketones Leukocytes Nitrite Labor Signs Protein Cervic Dilation Cervic Effacement Cervic Station Type Weight in lbs Pre/Post Dialysis Refused BP Diastolic BP Location Tested BP Systolic BP Type Fetus Heart Rate Present Fetus Movement Comments Flowsheet Date 01/03/2022 Gibson Score Blood Edema Fundus Height Fundus Units Glucose Ketones Leukocytes Nitrite Labor Signs Protein Cervic Dilation Cervic Effacement Cervic Station neg none trace Type Weight in lbs Pre/Post Dialysis Refused Weight 152.548249609922 BP Diastolic BP Location Tested BP Systolic BP Type 67 105 Fetus Heart Rate Present Fetus Movement A Yes Comments PATIENT STATES THAT HAVING S OME PAIN WITH URINATION. growth us today ua for culture, irritated around vulva will call out rx, f/u 2 weeks gct today Flowsheet Date 01/17/2022 Gibson Score Blood Edema Fundus Height Fundus Units Glucose Ketones Leukocytes Nitrite Labor Signs Protein Cervic Dilation Cervic Effacement Cervic Station neg trace trace Type Weight in lbs Pre/Post Dialysis Refused Weight 150.644853079606 BP Diastolic BP Location Tested BP Systolic BP Type 64 106 Fetus Heart Rate Present A 155 Fetus Movement A Yes Comments PATIENT STATES THAT HAVING M UCUS DISCHARGE, HIP PAIN, AND SWELLING. had influenza, now cough, productive at times, nasal drip, lungs clear bilaterally, zpack, preautions reviewed, may be viral, pt to monitor, f/u 2 weeks ob Flowsheet Date 02/06/2022 Gibson Score Blood Edema Fundus Height Fundus Units Glucose Ketones Leukocytes Nitrite Labor Signs Protein Cervic Dilation Cervic Effacement Cervic Station none 32 none trace Type Weight in lbs Pre/Post Dialysis Refused Weight 157.687179977516 BP Diastolic BP Location Tested BP Systolic BP Type 70 114 Fetus Heart Rate Present A 139 Fetus Movement A Yes Comments Doing well. Encouraged to sc hedule pre admit. Planning MIL for 5-13 with Anju. Size less than dates. U/S to be scheduled. Baby does feel transverse at this time. Flowsheet Date 02/13/2022 Gibson Score Blood Edema Fundus Height Fundus Units Glucose Ketones Leukocytes Nitrite Labor Signs Protein Cervic Dilation Cervic Effacement Cervic Station Type Weight in lbs Pre/Post Dialysis Refused BP Diastolic BP Location Tested BP Systolic BP Type Fetus Heart Rate Present Fetus Movement Comments Flowsheet Date 02/16/2022 Gibson Score Blood Edema Fundus Height Fundus Units Glucose Ketones Leukocytes Nitrite Labor Signs Protein Cervic Dilation Cervic Effacement Cervic Station neg trace trace Type Weight in lbs Pre/Post Dialysis Refused Weight 158.625984340932 BP Diastolic BP Location Tested BP Systolic BP Type 70 115 Fetus Heart Rate Present Fetus Movement A Yes Comments PATIENT IS HAVING PAIN, SWEL LING, NAUSEA AND VOMITING. precautions reviewed, gbs collected, growth us last week 28%, f/u one week Flowsheet Date 03/02/2022 Gibson Score Blood Edema Fundus Height Fundus Units Glucose Ketones Leukocytes Nitrite Labor Signs Protein Cervic Dilation Cervic Effacement Cervic Station neg trace none trace Type Weight in lbs Pre/Post Dialysis Refused Weight 163.857517085269 BP Diastolic BP Location Tested BP Systolic BP Type 84 143 Fetus Heart Rate Present Fetus Movement A Yes Comments patient states that having h eadaches, vision changes, swelling, contractions and discharge. rpt bp 148/90 to ld for evaluation if wnl has IOL scheduled in one week, precautions reviewed Flowsheet Date 03/27/2022 Gibson Score Blood Edema Fundus Height Fundus Units Glucose Ketones Leukocytes Nitrite Labor Signs Protein Cervic Dilation Cervic Effacement Cervic Station Type Weight in lbs Pre/Post Dialysis Refused Weight 134.296672405181 BP Diastolic BP Location Tested BP Systolic BP Type 83 128 Fetus Heart Rate Present Fetus Movement Comments Menstrual History Last Menstrual Date Menses Monthly On Bcp Conception Prior Menses Frequency Hcg Plus Date Menarche Onset Age 0806/23/2021 true Genetic Screening And Infection History Question Response Note Mental Retardation/Autism true daught er has autism Patient's Age Will Be 35 Yea rs Or Older At Estimated Date of Delivery false Thalassemia (Swedish, Tajik, Mediterranean, Or Background): MCV < 80 false Neural Tube Defect (Meningom yelocele, Spina Bifida, Or Anencephaly) false Congenital Heart Defect false Down Syndrome false Erick-Sachs (eg, Sikh, Cajun, Malay-Zimbabwean) f alse Lizzette Disease false Sickle Cell Disease Or Trait () false Hemophilia Or Other Blood Disorders false Muscular Dystrophy false Cystic Fibrosis false Stearns's Chorea false Intellectual Disability/Autism false If Yes, Was Person Tested For Fragile X? false Other Inherited Genetic Or Chromosomal Disorder false Maternal Metabolic Disorder (eg, Type 1 Diabetes , PKU) false Patient Or Baby's Father Had A Child With Defects Not Listed Above false Recurrent Loss, Or A Stillbirth false Medications (including Suppl ements, Vitamins, Herbs, OTC Drugs), Illicit/Recreational Drugs, Alcohol true pnv phener rupinder If Yes, Agent(s) And Strength/Dosage false Any Other Genetic History false Live With Someone With TB Or Exposed To TB false Patient Or Partner Has History Of Genital Herpes false Rash Or Viral Illness Since Last Menstrual Perio d false History Of STD, Gonorrhea, Chlamydia, HPV, Syphi lis false Other Infection History false History of HIV false History of Hepatitis false Prior GBS-infected child false Hemoglobinopathy Or Carrier false Other Structural Defect false Recent Travel History Outside of Country false Delivery Information Delivery Date Delivery Type Labor Anesthesia Weeks Gestation Incision Type Labor Labor Length Hrs Delivered By Post Complications Tubal Sterilization Discharge Date Comments 2 Induce d Regional-Ep idural 39 false Anju Mcnamara CNM Spinal muscular atrophy Discharge Information Feeding Method Contraceptive Method Maternal HG B and HCT Levels Ob Episode Information Episode Created Date Number of Fetuses Patient Bloodtype Patient rh Status Prepregnancy Weight lbs Domestic Partner Domestic Partner Phone Father Name Lead Java Programmer Status 07/05/20 21 1 CLOSED Fetus Data First Name Last Name Admitted to NICU Weight (g) Sex Living Outcome Pediatric Complications Fetus ID Race Codes Race Delivery Type 3175.14 4 F Full Term [id number] Vaginal Delivery Jun Calculation Initial Jun Date Initial Exam Date Initial Exam Provider Initial Ultrasound Date Last Menstrual Period Date Ultra Sound Weeks Gestation 0 Eighteen To Twenty Week Jun Update Ultra Sound Date Fundal Height At Umbil Quickening Date Ultra Sound Latest Weeks Gestation Final Jun Confirmed By Final Jun Confirmed Date Final Jun Date Ultra Sound Latest Days Gestation 0 0 Menstrual History Last Menstrual Date Menses Monthly On Bcp Conception Prior Menses Frequency Hcg Plus Date Menarche Onset Age Delivery Information Delivery Date Delivery Type Labor Anesthesia Weeks Gestation Incision Type Labor Labor Length Hrs Delivered By Post Complications Tubal Sterilization Discharge Date Comments 8 40 Discharge Information Feeding Method Contraceptive Method Maternal HG B and HCT Levels Ob Episode Information Episode Created Date Number of Fetuses Patient Bloodtype Patient rh Status Prepregnancy Weight lbs Domestic Partner Domestic Partner Phone Father Name Lead Java Programmer Status 11/01/19 24 1 B Positive 126 [address] CLOSED Fetus Data First Name Last Name Admitted to NICU Weight (g) Sex Living Outcome Pediatric Complications Fetus ID Race Codes Race Delivery Type 3401.94 M true Full Term 08871 Vaginal Delivery Problems Problem Notes gallbladder attack/pain - re ferral to Gen Surg Dr. Boles sent 11/08- pt never went because pain stopped Problem Name Start Date End Date Resolution Snomed Code Not e Anxiety [id number] prozac Nausea [id number] d/c zofran pump 11/08 per pt request hemorrhage [id number] hx of 2017 with d&c Jun Calculation Initial Jun Date Initial Exam Date Initial Exam Provider Initial Ultrasound Date Last Menstrual Period Date Ultra Sound Weeks Gestation 04/16/2024 10/02/2023 10/02/2023 11 Eighteen To Twenty Week Jun Update Ultra Sound Date Fundal Height At Umbil Quickening Date Ultra Sound Latest Weeks Gestation Final Jun Confirmed By Final Jun Confirmed Date Final Jun Date Ultra Sound Latest Days Gestation 0 0 Pre-fabiola Flowsheet Flowsheet Date 11/01/2023 Gibson Score Blood Edema Fundus Height Fundus Units Glucose Ketones Leukocytes Nitrite Labor Signs Protein Cervic Dilation Cervic Effacement Cervic Station neg none none trace Type Weight in lbs Pre/Post Dialysis Refused Weight 130.316995567624 BP Diastolic BP Location Tested BP Systolic BP Type 77 115 Fetus Heart Rate Present Fetus Movement A Yes Comments patient is having back pain, pain, discharge, nausea and acid reflux, was seen in ED and diagnosed viral infection, neg covid/flu/strep. nausea and vomiting resolved , anxiety increased, start prozac 10mg reviewed se risks and benefits, if any suicidal thoughts to ED. f/u 4 weeks anatomy scanreviewed precautions and education Flowsheet Date 11/27/2023 Gibson Score Blood Edema Fundus Height Fundus Units Glucose Ketones Leukocytes Nitrite Labor Signs Protein Cervic Dilation Cervic Effacement Cervic Station Type Weight in lbs Pre/Post Dialysis Refused BP Diastolic BP Location Tested BP Systolic BP Type Fetus Heart Rate Present Fetus Movement Comments Flowsheet Date 11/27/2023 Gibson Score Blood Edema Fundus Height Fundus Units Glucose Ketones Leukocytes Nitrite Labor Signs Protein Cervic Dilation Cervic Effacement Cervic Station neg none none trace Type Weight in lbs Pre/Post Dialysis Refused Weight 136.222459005148 BP Diastolic BP Location Tested BP Systolic BP Type 61 115 Fetus Heart Rate Present Fetus Movement A Yes Comments doing well , anatomy complet e anterior placenta, precautions reviewed, no gallbladder attacks, f/u 4 weeks Flowsheet Date 12/25/2023 Gibson Score Blood Edema Fundus Height Fundus Units Glucose Ketones Leukocytes Nitrite Labor Signs Protein Cervic Dilation Cervic Effacement Cervic Station neg none none trace Type Weight in lbs Pre/Post Dialysis Refused Weight 144.084858463795 BP Diastolic BP Location Tested BP Systolic BP Type 68 113 Fetus Heart Rate Present Fetus Movement A Yes Comments reviewed precautions, no com plaints, +FM, doing well, plan 4 week GCT , no gallbladder pain did not see surgeon Flowsheet Date 02/14/2024 Gibson Score Blood Edema Fundus Height Fundus Units Glucose Ketones Leukocytes Nitrite Labor Signs Protein Cervic Dilation Cervic Effacement Cervic Station neg none none trace Type Weight in lbs Pre/Post Dialysis Refused Weight 154.091210422160 BP Diastolic BP Location Tested BP Systolic BP Type 75 115 Fetus Heart Rate Present A 150 Present Fetus Movement A Yes Comments Patient is having pain, cont ractions, discharge, nausea and vomiting. pt has been unable to come due to transportation, bf drove rental car here today, discussed reg care but pt doesnt think she can make it back in, also has been leaking fluid for 4 days. pt not worried since no labor, discussed infection, maternal sepsis, , will go today to LD for exam and BPP with ROSA Flowsheet Date 03/27/2024 Gibson Score Blood Edema Fundus Height Fundus Units Glucose Ketones Leukocytes Nitrite Labor Signs Protein Cervic Dilation Cervic Effacement Cervic Station none 36 Type Weight in lbs Pre/Post Dialysis Refused Weight 157.142445101285 BP Diastolic BP Location Tested BP Systolic BP Type 72 121 Fetus Heart Rate Present Fetus Movement A Yes Comments Patient is having some dizzy , headache, blurry vision, contractions, discharge, nausea and vomiting. gbs collected, labd done with hga1c, declined glucose, limited care due to transportation. +FM, IOL scheduled for 39 weekswas in ED for seeing spots, normal labs and bp, pt worried, precautions reviewed, declined cervical exam f/u one week Menstrual History Last Menstrual Date Menses Monthly On Bcp Conception Prior Menses Frequency Hcg Plus Date Menarche Onset Age Delivery Information Delivery Date Delivery Type Labor Anesthesia Weeks Gestation Incision Type Labor Labor Length Hrs Delivered By Post Complications Tubal Sterilization Discharge Date Comments 4 27.2 Anju Mcnamara CNM 04/11/2024 limited care Discharge Information Feeding Method Contraceptive Method Maternal HG B and HCT Levels
[2025-02-04] MEDS: PROMETHAZINE HCL 25 MG/ML AMPUL 12.5 MG IV PUSH (10:40)
[2025-02-04] MEDS: DEXTROSE 5%/LACTATED RINGERS 1,000 ML 999 ML IV CONT (10:41)
[2025-02-04 10:53] LABS: Alanine Aminotransferase 18 U/L (6-35); Albumin Level 4.5 g/dL (3.5-5.1); Alkaline Phosphatase 64 U/L (38-126); Anion Gap 11 mmol/L (4-12); Aspartate Amino Transferase 23 U/L (14-36); Bilirubin,Total 0.3 mg/dL (0.2-1.3); Blood Urea Nitrogen 12 mg/dL (7-17); Calcium 9.4 mg/dL (8.4-10.2); Carbon Dioxide 22 mmol/L (22-30); Chloride 104 mmol/L (98-107); Estimated Glomerular Filt Rate > 60; Glucose 85 mg/dL (65-110); Potassium 3.8 mmol/L (3.4-5.0); Sodium 137 mmol/L (137-145)
[2025-02-04 11:19] VITALS: BMI 27.4
[2025-02-04 11:38] LABS: Add Urine Microscopic? YES; Appearance Urine Cloudy (Clear); Bacteria Urine 3+ /hpf; Bilirubin Urine Negative (Negative); Blood Urine Negative (Negative); Color Urine Yellow (Yellow); Glucose Urine UA Negative (Negative); Ketones Urine Negative (Negative); Leukocyte Esterase Ur Negative LEU/UL (Negative); Need Manual Microscopic Reviewed; Nitrate Urine Negative (Negative); Non Pathogenic Casts 0-2; Protein Urine Negative (Negative); Specific Grav Ur 1.029 (1.001-1.035); Squamous Epithelial Cell Urine Few /hpf (Few); Urobilinogen Urine 0.2 mg/dL (<2.0); pH Urine 6.5 (5.0-9.0)
[2025-02-04 11:45] VITALS: BP 100/75; PULSE 71; PULSE 76; O2SAT 96
[2025-02-04 12:00] VITALS: BP 114/57; PULSE 84
[2025-02-04] MEDS: ONDANSETRON INJ 4 MG/2 ML VIAL 8 MG IV PUSH (12:12)
[2025-02-04] MEDS: DEXTROSE 5%/LACTATED RINGERS 1,000 ML 150 ML IV CONT (12:17)
--- NOTE | 2025-02-04 12:26 | PC.NURSE ---
Called Dr. Mcginnis. Notified of promethazine administration, pt. has received IV fluid bolus. Vomitted 50 ccs and given 8mg IV zofran. Pt. has 3+ bacteria in urine. Dr. Mcginnis sent script for keflex to pharmacy.
--- NOTE | 2025-02-04 13:10 | PC.NURSE ---
Called Dr. Mcginnis and discussed concern that pt will have a hard time completing her oral antibiotics due to her nausea. Order received for a dose of Rocephin IV. MD wants pt to still try to complete oral antibiotics also. He also already sent a prescription in for oral promethizine this am from the office. May discharge to home after IV Rocephin.
--- NOTE | 2025-02-04 13:45 | PC.NURSE ---
Pt. given sydnee crackers around 1230 and felt nauseous after. Given a turkey sandwich per pt. request around 1300, pt. ate 100% of the sandwich and expressed nausea was resolved.
--- NOTE | 2025-02-04 13:50 | PC.NURSE ---
Pt. given social detriments of health handouts for housing and childcare as well as [email or web address] card
--- NOTE | 2025-02-24 09:44 | P.PNOB_ITS ---
OB - Triage/Final Diagnosis Visit Information Comments/Additional reasons for admission: I have assessed the risk for this patient, Yuni Mejia, and determined that she would benefit from observation care. Evaluation Laboratory results: Laboratory Tests 02/04/25 10:33 Sodium 137 Potassium 3.8 Chloride 104 Carbon Dioxide 22 Anion Gap 11 BUN 12 Creatinine 0.45 L Estim Creat Clear Calc Not Reportable Estimated GFR > 60 Glucose 85 Calcium 9.4 Total Bilirubin 0.3 AST 23 ALT 18 Alkaline Phosphatase 64 Total Protein 8.0 Albumin 4.5 Urine Color Yellow Urine Appearance Cloudy H Urine pH 6.5 Ur Specific [place] 1.029 Urine Protein Negative Urine Glucose (UA) Negative Urine Ketones Negative Ur Blood (Man) Negative Urine Nitrate Negative Urine Bilirubin Negative Urine Urobilinogen 0.2 Add Ur Microanalysis Reviewed Leukocyte Esterase Rfl Negative Urine RBC 6-10 H Urine WBC 11-20 H Ur Squamous Epith Cells Few Urine Bacteria 3+ H Urine Casts 0-2 Final Diagnosis (1) Hyperemesis: Code(s): R11.10 - Vomiting, unspecified Status: Acute
== END 2025-02-04 14:01 | disposition home or self-care (01) ==
PROVIDERS: Admitting Provider Obstetrics & Gynecology; Visit Provider Obstetrics & Gynecology
DX: O21.0 Mild hyperemesis gravidarum (principal); Z3A.01 Less than 8 weeks gestation of pregnancy
CPT/HCPCS: 36415; 80053; 81001; 87086; G0378; G0379; J0696; J2405; J2550; J7121

== ENCOUNTER 2025-02-10 11:02 | Emergency (ER) | payer OTHER, SELFPAY ==
--- NOTE | ~2025-02-10 | XR_ITS ---
EXAMINATION: XR chest 1V portable DATE: 02/10/2025 13:03 INDICATION: Chest pain TECHNIQUE: AP view of the chest was obtained. COMPARISON: Chest radiograph dated 05/15/2024 FINDINGS: The lungs remain clear with no focal airspace opacities, pulmonary edema, pleural effusion or pneumot horax. The cardiomediastinal silhouette is normal. Visualized bones and soft tissues are unremarkable . IMPRESSION: 1. Normal chest radiograph. Reviewed, dictated and finalized at location A. IMPRESSION: 1. Normal chest radiograph.
[2025-02-10 11:24] VITALS: BP 120/77; PULSE 84; RESP 16; TEMP 36.4; O2SAT 98
[2025-02-10 12:21] LABS: Add Urine Microscopic? YES; Appearance Urine Cloudy (Clear); Bacteria Urine 3+ /hpf; Bilirubin Urine Negative (Negative); Blood Urine Negative (Negative); Color Urine Yellow (Yellow); Glucose Urine UA Negative (Negative); Ketones Urine Negative (Negative); Leukocyte Esterase Ur Negative LEU/UL (Negative); Nitrate Urine Negative (Negative); Non Pathogenic Casts 0-2; Protein Urine Trace mg/dL (Negative); Specific Grav Ur 1.031 (1.001-1.035); Squamous Epithelial Cell Urine Moderate /hpf (Few); WBC Urine 0-5 /hpf (0-3)
--- NOTE | 2025-02-10 12:27 | PC.NURSE ---
Dr. Crawley at bedside performing ultrasound.
--- OUTSIDE RECORDS SUMMARY | 2025-02-10 12:28 | XMS_ITS | Encounter Summary ---
Author Organization [facility] Address [address] [place] [id number] Care Team Providers Care Account Resolution Specialist Name Role Phone Steph Hightower MD Unavailable Tanner Paige MD Primary Care Provider Janell Celaya APNP Unavailable Reason for Visit * Reason Comments Vomiting Encounter Details Date Type Department Care Team (Late st Contact Info) Description 02/10/2025 9:44 AM CDT - 02/10/2025 10:15 AM CDT Emergency [facility] [place] [address] Kaitlin Colon MD [address] [place] [id number] Vomiting Discharge Disposition: Left Against Medical Advice Social History Tobacco Use Types Packs/Day Years Used Date Smoking Tobacco: Former Cigarettes Smokeless Tobacco: Never Alcohol Use Standard Drinks/Week Comments Not Currently [...] Recorded Patient Health Questionnaire-2 Score 0 05/13/2024 [facility] - Occupational Stress [...] money to get more. Never true 05/13/2024 Estimated Date of Delivery Comme nts Yes 09/17/2025 Sex and Gender Information Value Date Recorded Sex Assigned at Female 05/13/2024 1:22 AM CDT Legal Sex Female 8:30 AM CDT Gender Identity Female 05/13/2024 1:22 AM CDT Sexual Orientation Straight 05/13/2024 1: 22 AM CDT documented as of this encounter Last Filed Vital Signs Vital Sign Reading Time Taken Comments Blood Pressure 129/85 02/10/2025 9:51 AM CDT Pulse 88 02/10/2025 9:51 AM CDT Temperature 36.3 C (97.4 F) 02/10/2025 9:51 AM CDT Respiratory Rate 16 02/10/2025 9:51 AM CDT Oxygen Saturation 98% 02/10/2025 9:51 AM CDT Inhaled Oxygen Concentration - - Weight 72.6 kg (160 lb) 02/10/2025 9:51 AM CDT Height 165.1 cm (5' 5 ) 02/10/2025 9:51 AM CDT Body Mass Index 26.63 02/10/2025 9:51 AM CDT documented in this encounter Functional Status * Are you deaf or do you have serious difficulty hearing Answer Date of Assessment Author Status No 05/13/2024 1:23 AM Mariama Ferris RN Active * Are you blind or do you have serious difficulty seeing, even when wearing glasses? Answer Date of Assessment Author Status No 05/13/2024 1:23 AM Mariama Ferris RN Active * Do you have serious difficulty walking or climbing stairs? Answer Date of Assessment Author Status No 05/13/2024 1:23 AM Mariama Ferris RN Active * Do you have difficulty dressing or bathing? Answer Date of Assessment Author Status No 05/13/2024 1:23 AM Mariama Ferris RN Active * Because of a physical, mental, or emotional condition, do you have difficulty doing errands alone such as visiting a doctor's office or shopping? Answer Date of Assessment Author Status No 05/13/2024 1:23 AM Mariama Ferris RN Active * Calculated C-SSRS Risk Score (Lifetime/Recent) Answer Date of Assessment Author Status No Risk Indicated 02/10/2025 9:52 AM Sampson Rudd RN Active * Camp Suicide Severity Rating Scale (Screener/Recent Self-Report) Question Answer Date of Assessment Author Status 1. Wish to be (Past 1 Month) No 02/10/2025 9:52 AM Nhi Rudd RN Activ e 2. Non-Specific Active Suicidal Thoughts (Past 1 Month) No 02/10/2025 9:52 AM Nhi Rudd RN Activ e 6. Suicidal Behavior (Lifetime) No 02/10/2025 9:52 AM Nhi Rudd RN Activ e documented as of this encounter Mental Status * Because of a physical, mental, or emotional condition, do you have serious difficulty concentrating, remembering, or making decisions? Answer Entry Date Author Status No 05/13/2024 1:23 AM Mariama Ferris RN Active documented in this encounter Medications at Time of Discharge vitamin, low iron, 27-0.8 mg tablet Take 1 tablet by mouth daily. albuterol sulfate HFA 108 (90 Base) MCG/ACT inhaler Inhale 2 puffs into the lungs 4 (four) times daily. 01/07/2025 ondansetron (ZOFRAN-ODT) 4 MG disintegrating tablet Take 1 tablet (4 mg total) by mouth every 8 (eight) hours as needed for Nausea. 20 tablet 01/24/2025 SYMBICORT 80-4.5 MCG/ACT inhaler 2 puffs 2 (two) times daily. 01/07/2025 documented as of this encounter ED Notes * Kaitlin Colon MD - 02/10/2025 10:15 AM CDT Chief Complaint Chief Complaint Patient presents with Vomiting History of Present Illness History obtained from patient and medical records Patient is a 25-year-old female who presents to the emergency room with multiple complaints. Patient is a Ab1 at 9 weeks gestation. Patient states that she has had hyperemesis gravidarum with this . She states that she has been vomiting regularly. Patient states Reglan, Phenergan andZofran are not helping. Patient states she also is having a sore throat and congestion. Patient states that she has a continuous cough. She states she was recently diagnosed with a pneumonia and tookantibiotics for this. Patient states she went to [place] emergency room yesterday and she states that the doctor was rude to her and dismissed her. She states she called her OB office who told her to drink Pedialyte and then come to [place] to see them today. Patient states that we were closer so she came here. Patient complains of pain to both ribs. Patient states she has had intermittent episodes of diarrhea. No vaginal bleeding. In reviewing medical records, patient had an ultrasound here on January 13 that did show a gestational sac at the estimated 5 weeks 2 days. No signs of ectopic . Medical History ALLERGIES: Review of patient's allergies indicates: Allergen Reactions Terbutaline Anaphylaxis Amoxil [Amoxicillin] Unknown MEDICATIONS: Prior to Admission medications Medication Sig Start Date End Date Taking? Authorizing Provider cephALEXin (KEFLEX) 500 MG capsule Take 1 capsule (500 mg total) by mouth 2 (two) times daily for 10 days. 02/10/25 02/20/25 Yes Kaitlin Colon MD vitamin, low iron, 27-0.8 mg tablet Take 1 tablet by mouth daily. Yes Default History Genericprovider albuterol sulfate HFA 108 (90 Base) MCG/ACT inhaler Inhale 2 puffs into the lungs 4 (four) times daily. 01/07/25 Default History Genericprovider ondansetron (ZOFRAN-ODT) 4 MG disintegrating tablet Take 1 tablet (4 mg total) by mouth every 8 (eight) hours as needed for Nausea. 01/24/25 Keny Frost MD SYMBICORT 80-4.5 MCG/ACT inhaler 2 puffs 2 (two) times daily. 01/07/25 Default History Genericprovider PAST MEDICAL HISTORY: Past Medical History[1] PAST SURGICAL HISTORY: Past Surgical History[2] FAMILY HISTORY: Family History[3] SOCIAL HISTORY: Social History[4] Non-smoker, no alcohol or drug use Review of Systems Review of Systems Constitutional: Positive for appetite change. Negative for chills and fever. HENT: Positive for rhinorrhea, sinus pressure and sore throat. Eyes: Negative. Respiratory: Positive for cough. Cardiovascular: Negative. Gastrointestinal: Positive for diarrhea, nausea and vomiting. Negative for abdominal pain. Endocrine: Negative. Genitourinary: Negative. Negative for dysuria, vaginal bleeding and vaginal pain. Musculoskeletal: Negative. Skin: Negative. Allergic/Immunologic: Negative. Neurological: Negative. Hematological: Negative. Psychiatric/Behavioral: Negative. Physical Exam Filed Vitals: 02/10/25 0951 BP: 129/85 Pulse: 88 Resp: 16 Temp: 97.4 ??F (36.3 ??C) TempSrc: Temporal SpO2: 98% Weight: 72.6 kg (160 lb) Height: 1.651 m (5' 5 ) Vital signs are stable Physical Exam Vitals and nursing note reviewed. Exam conducted with a travel counselor automobile club present (significant other). Constitutional: General: She is not in acute distress. Appearance: She is not ill-appearing. HENT: Head: Normocephalic and atraumatic. Right Ear: Tympanic membrane normal. Left Ear: Tympanic membrane normal. Mouth/Throat: Mouth: Mucous membranes are moist. Pharynx: No oropharyngeal exudate or posterior oropharyngeal erythema. Cardiovascular: Rate and Rhythm: Normal rate and regular rhythm. Pulses: Normal pulses. Heart sounds: Normal heart sounds. No murmur heard. Pulmonary: Effort: Pulmonary effort is normal. No respiratory distress. Breath sounds: Normal breath sounds. No wheezing or rales. Chest: Chest wall: No tenderness. Abdominal: General: Bowel sounds are normal. There is no distension. Palpations: Abdomen is soft. Tenderness: There is no abdominal tenderness. There is no guarding or rebound. Hernia: No hernia is present. Musculoskeletal: General: No swelling or tenderness. Normal range of motion. Cervical back: Normal range of motion and neck supple. No rigidity or tenderness. Skin: General: Skin is warm and dry. Capillary Refill: Capillary refill takes less than 2 seconds. Neurological: General: No focal deficit present. Mental Status: She is alert and oriented to person, place, and time. Psychiatric: Mood and Affect: Mood normal. Behavior: Behavior normal. Diagnostic Studies / Procedures ELECTROCARDIOGRAMS: No results found for this visit on 02/10/25. LABORATORY STUDIES: Results for orders placed or performed during the hospital encounter of 02/10/25 CORONAVIRUS (COVID-19) ANTIGEN Specimen: NASAL Result Value Ref Range CORONAVIRUS ANTIGEN IA NEGATIVE NEGATIVE SPECIMEN TYPE NASAL INFLUENZA A & B Specimen: NASOPHARYNGEAL SWAB Result Value Ref Range SPECIMEN TYPE (INFLUENZA) NASOPHARYNGEAL SWAB INFLUENZA A NEGATIVE NEGATIVE INFLUENZA B NEGATIVE NEGATIVE STREP A RAPID Specimen: THROAT Result Value Ref Range SPECIMEN SOURCE THROAT RAPID STREP TEST POSITIVE (A) NEGATIVE IMAGING STUDIES No orders to display ED Course / Medical Decision Making Medical Decision Making Amount and/or Complexity of Data Reviewed Labs: ordered. ED Course as of 02/10/25 1138 SatFeb 10, 2025 1132 Patient's [place] PDMP has been reviewed. Previous ER visits have been reviewed. Differentialdiagnosis of hyperemesis gravidarum, dehydration, viral syndrome, strep pharyngitis, urinary tract infection. When questioning patient about her recent ER visits and follow-up, patient became upset with me as she states I was being dismissive. I explained to patient that I was questioning what symptoms were new versus what were chronic. Patient was also insistent on a chest x-ray. While in the emergency room, patient's lungs are clear, her respiratory 16, pulse ox is 98%. She is 9 weeks and had a chest x-ray on January 24. I discussed with patient that I did not think that it was medically indicated for chest x-ray at this time and they did not feel that it was appropriate with her being 9 weeks and no other symptoms other than cough. Patient was upset by this. I did explain to patient that we needed to give her IV fluids and antiemetics. We need to check her urine and do further evaluation. Labs were ordered along with COVID, influenza strep and urine. Attempted to reach patient's OB, Dr. Dede Mcginnis and left a message as well. Patient came out soon after I left the room and told the nurse that she wants the AMA form and wants to leave. Rapid strep did come back positive. Attempted to call patient x 2. 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 Unable to leave a message. Did call in Keflex due to patient's amoxicillin allergy to pharmacy. Did also speak with Dr. Paige's office to also attempt to reach patient. [MA] ED Course User Index [MA] Kaitlin Colon MD Clinical Impression Sore throat (Primary) Strep pharyngitis 9 weeks gestation of (HHS/HCC) Vomiting Disposition: AMA [1] Past Medical History: Diagnosis Date Anxiety IBS (irritable bowel syndrome) Palpitations [2] History reviewed. No pertinent surgical history. [3] Family History Problem Relation Name Age of Onset Hypertension Mother Stroke Paternal Grandfather Heart Attack Paternal Grandfather [4] Social History Tobacco Use Smoking status: Former Current packs/day: 1.00 Types: Cigarettes Smokeless tobacco: Never Vaping Use Vaping status: Never Used Substance Use Topics Alcohol use: Not Currently Drug use: Not Currently Kaitlin Colon MD 02/10/25 1138 * Kasey Harman RN - 02/10/2025 10:15 AM CDT Pt comes to desk - Medical Laboratory Assistant reviews AMA form. Pt signs and leaves - gait strong and steady. * Kasey Harman RN - 02/10/2025 10:13 AM CDT Nurse Lona Cobb in room to initiate IV Access. Pt advises Marli I want one of those AMA forms and I would like to jacquie out a repot about the Doctor and nurses * Nhi Caldera RN - 02/10/2025 9:47 AM CDT Ambulatory with c/o stuffy nose, sore throat and cough for possibly a week. Pt is 9 weeks and states has been unable to keep anything down for weeks. 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 Was taking zofran and switched to promethazine that pt states she isn't taking because it makes her throw up more. Pt states was seen at [facility] yesterday but left because 'the doctor was rude and baldev rodriguez told me to leave' states ob dr wants her to come to [place], 'but you guys are closer' also c/o ongoing pain to ribs, rates at 6. G vi, P iv, Ab i documented in this encounter Plan of Treatment Scheduled Orders Name Type Priority Associated Diagnoses Orde r Schedule URINALYSIS Lab STAT Once for 1 Occurrences starting 02/10/2025 until 02/10/2025 CULTURE URINE Microbiology STAT Once for 1 Occurrences starting 02/10/2025 until 02/10/2025 CBC W/DIFF AUTOMATED Lab STAT Once for 1 Occurrences starting 02/10/2025 until 02/10/2025 COMPREHENSIVE METABOLIC PANEL Lab STAT Once for 1 Occurrences starting 02/10/2025 until 02/10/2025 documented as of this encounter Procedures Procedure Name Priority Date/Time Associated Diagnosis Comments CORONAVIRUS (COVID-19) ANTIGEN STAT 02/10/2025 9:53 AM CDT INFLUENZA A & B STAT 02/10/2025 9:53 AM CDT STREP A RAPID STAT 02/10/2025 9:53 AM CDT documented in this encounter Results * (ABNORMAL) STREP A RAPID (02/10/2025 9:53 AM CDT) SPECIMEN SOURCE THROAT 02/10/2025 9:56 AM CDT [facility] RAPID STREP TEST POSITIVE(A) NEGATIVE 02/10/2025 10:38 AM CDT [facility] Comment: CALLED TO MATHEW CLIVE 103 02/10/25 AFW READ BACK AND VERIFIED STRUCTURE OF ANTERIOR PORTION OF NECK / Unknown 02/10/2025 9:53 AM CDT us Kaitlin Colon MD MICROBIOLOGY - GENERAL JOSE CORONADO Final Result Performing Organization Address [facility] Co de Phone Number [address] [address], * INFLUENZA A & B (02/10/2025 9:53 AM CDT) SPECIMEN TYPE (INFLUENZA) NASOPHARYNGEAL SWAB 02/10/2025 9:56 AM CDT [facility] INFLUENZA A NEGATIVE NEGATIVE 02/10/2025 10:41 AM CDT [facility] INFLUENZA B NEGATIVE NEGATIVE 02/10/2025 10:41 AM CDT [facility] Comment: A NEGATIVE RESULT DOES NOT EXCLUDE INFLUENZA VIRUS INFECTION. IF INFLUENZA IS CIRCULATING IN YOUR COMMUNITY, A DIAGNOSIS OF INFLUENZA SHOULD BE CONSIDERED BASED ON A PATIENT'S CLINICAL PRESENTATION AND EMPIRIC ANTIVIRAL TREATMENT SHOULD BE CONSIDERED IF INDICATED. NASOPHARYNGEAL SWAB / Unknown 02/10/2025 9:53 AM CDT us Kaitlin Colon MD MICROBIOLOGY - GENERAL JOSE CORONADO Final Result Performing Organization Address City/[facility]/ZIP Co de Phone Number [facility] [address] [place] [phone], * CORONAVIRUS (COVID-19) ANTIGEN (02/10/2025 9:53 AM CDT) CORONAVIRUS ANTIGEN IA NEGATIVE NEGATIVE 02/10/2025 10:41 AM CDT [facility] Comment: NEGATIVE RESULTS DO NOT [...] USE BY AUTHORIZED LABORATORIES. SPECIMEN TYPE NASAL 02/10/2025 9:56 AM CDT [facility] NASAL NASAL STRUCTURE / Unknown 02/10/2025 9:53 AM CDT Kaitlin Colon MD MICROBIOLOGY - GENERAL JOSE CORONADO Final Result [facility] [address] [place] [address], documented in this encounter Visit Diagnoses Diagnosis Sore throat- Primary Acute pharyngitis Strep pharyngitis Streptococcal sore throat 9 weeks gestation of ([facility]) state, incidental Vomiting Vomiting alone documented in this encounter Active and Recently Administered Medications Times are shown in CDT. Scheduled Medication Order 02/08/2025 02/09/2025 02/10/2025 ondansetron (ZOFRAN) injection 4 mg 4 mg, Intravenous, Once, 1 dose, On Sat02/10/25 at 1015, IV push over 2-5 minutes. 1015 (Canceled Entry - Provider: Automatic Discharge Provider - Comment: Automatically canceled at discontinue of medication order) sodium chloride 0.9% bolus infusion 1,000 mL 1,000 mL, Intravenous, Administer over 60 Minutes, Once, 1 dose, On Sat02/10/25 at 1015 1015 (Canceled Entry - Provider: Automatic Discharge Provider - Comment: Automatically canceled at discontinue of medication order) documented in this encounter Additional Health Concerns Infection Onset Date Last Indicated Resolved Time COVID-19 Rule Out 02/10/2025 02/10/2025 02/10/2025 10:41 AM CDT Respiratory Rule-Out 02/10/2025 02/10/2025 025 10:41 AM CDT documented as of this encounter Care Teams Account Resolution Specialist Relationship Specialty Start Date End Date Tanner Paige MD [address] [place] [phone] PCP - General FAMILY PRACTICE 07/01/24 Steph Hightower MD [address] [place] [address] Consulting Physician CARDIOVASCULAR DISEASE 11/07/22 Janell Celaya APNP [address] [place] [address] NURSE PRACTITIONER 12/01/24 documented as of this encounter
--- OUTSIDE RECORDS SUMMARY | 2025-02-10 12:28 | XMS_ITS | Clinical Summary ---
Author Organization [facility] Address [address] [place] [address] Care Team Providers Care Blending Tank Tender Helper Name Role Phone Tammi Menon DOREEN Primary Care Provider Allergies Active Allergy Reactions Criticality Noted Date Comments Terbutaline Unknown 07/04/2019 Medications multivitamin tabletIndicatio ns:Vitamin Deficiency Prevention Take 1 tablet by mouth Active doxylamine (UNISOM) 25 mg tablet Take 0.5 tablets (12.5 mg total) by mouth 3 (three) times a day as needed for sleep 60 tablet 1 07/04/2019 Active pyridoxine (VITAMIN B-6) 25 mg tablet Take 0.5 tablets (12.5 mg total) by mouth 3 (three) times a day as needed (nausea) 60 tablet 1 07/04/2019 Active polyethylene glycol (MIRALAX) 17 gram/dose powder Take 17 g by mouth daily 510 g 2 07/04/2019 Active Active Problems Problem Noted Date Diagnosed Date 07/04/2019 Overview (07/04/2019): 07/04/2019: Plans to have care with Dr. Ortega Denson in [place], [place]. Assessment & Plan (07/04/2019 7:48 PM CDT): - no plans to initiate care [place] - gave Rx for doxylamine/pyridoxine for nausea - encouraged smoking cessation; recommended she d/w Dr. Addison Denson when she establishes care Abdominal pain in 07/04/2019 Overview (07/04/2019): 07/04/2019: presented to [facility], r/o for acute process. Transfer to [facility] for dating confirmation. Reports no BM [...] Department Care Team Description 12/31/2024 2:47 PM COMMUNITY SERVICE WORKER - 12/31/2024 5:34 PM COMMUNITY SERVICE WORKER [facility] Emergency Department [address] [place] [id number] Shortness of breath (Primary Dx) Discharge Disposition: [...] on file Legal Sex Female 11:55 PM COMMUNITY SERVICE WORKER Gender Identity Not on file Sexual Orientation Not on file Obstetrics History Para Term AB IAB SAB Ectopic Multiple Livin g Live Births 3 1 1 1 1 1 1 Date Outcome GA Total Labor Labor/2nd/3rd Weight Sex Type Anes PTL Tuyet A1 A5 Name Clin 2017 SAB 018 Term 3.629 kg (8 lb) F Vag-S pont Epidur al Livin g Complications:Post He morrhage,Cervical laceration,Maternal blood transfusion Last Filed Vital Signs Vital Sign Reading Time Taken Comments Blood Pressure 101/69 12/31/2024 5:25 PM COMMUNITY SERVICE WORKER Pulse 77 12/31/2024 5:25 PM COMMUNITY SERVICE WORKER Temperature 37.1 C (98.7 F) 12/31/2024 2:09 PM COMMUNITY SERVICE WORKER Respiratory Rate 18 12/31/2024 5:25 PM COMMUNITY SERVICE WORKER Oxygen Saturation 100% 12/31/2024 5:25 PM COMMUNITY SERVICE WORKER Inhaled Oxygen Concentration - - Weight 72.7 kg (160 lb 4.4 oz) 12/31/2024 2:09 P M COMMUNITY SERVICE WORKER Height 165.1 cm (5' 5 ) 12/31/2024 2:09 PM COMMUNITY SERVICE WORKER Body Mass Index 26.67 12/31/2024 2:09 PM COMMUNITY SERVICE WORKER Plan of Treatment Health Maintenance Due Date [...] CHEST PE W CONTRAST ED 3:51 PM COMMUNITY SERVICE WORKER POCT HCG, URINE Routine 12/31/2024 3:19 PM COMMUNITY SERVICE WORKER XR CHEST PA LATERAL 2 VIEWS ED 12/31/2024 2:26 PM COMMUNITY SERVICE WORKER EGFR STAT 12/31/2024 2:16 PM COMMUNITY SERVICE WORKER DIFFERENTIAL AUTO STAT 12/31/2024 2:1 6 PM COMMUNITY SERVICE WORKER D-DIMER, QUANTITATIVE STAT 12/31/2024 2:16 PM COMMUNITY SERVICE WORKER COMPREHENSIVE METABOLIC PANEL STAT 12/31/2024 2:16 PM COMMUNITY SERVICE WORKER CBC WITH AUTO DIFFERENTIAL STAT 12/31/2024 2:16 PM COMMUNITY SERVICE WORKER INFLUENZA A/B, RSV, AND COVID-19 PCR STAT 12/31/2024 2:16 PM COMMUNITY SERVICE WORKER from Last 3 Months Results * CT Chest PE (CTA) W Contrast (12/31/2024 3:51 PM COMMUNITY SERVICE WORKER) Anatomical Region Laterality Modality Body N/A Computed Tomogra phy 12/31/2024 4:49 PM COMMUNITY SERVICE WORKER Narrative 12/31/2024 5:03 PM COMMUNITY SERVICE WORKER EXAM DESCRIPTION: CT CHEST PE (CTA) W [...] 5:03 PM - Electronically signed by Quang Dekcer M.D. LC: GABRIEL Report ID: [id number] Reading Location: [place] [address] Procedure Note Yumiko Decker MD - 12/31/2024 [...] Quang Decker M.D. LC: GABRIEL Report ID: [id number] Reading Location: [place] [address] [address] [address] [facility] IMG [address] PROCEDURES Final Result * POCT hCG, urine (12/31/2024 3:19 PM COMMUNITY SERVICE WORKER) HCG, ur, POC Negative Negative Lot Number [id number] QC Backgroud Clear Acceptable QC Control Line Acceptable Urine 12/31/2024 3:19 PM COMMUNITY SERVICE WORKER us Lesley DE LEON POINT OF CARE TEST ORDERABLES F inal Result * XR Chest PA Lateral 2 Views (12/31/2024 2:26 PM COMMUNITY SERVICE WORKER) Anatomical Region Laterality Modality Body, Chest N/A Computed Radiogr aphy 12/31/2024 2:43 PM COMMUNITY SERVICE WORKER Narrative 12/31/2024 2:43 PM COMMUNITY SERVICE WORKER EXAM DESCRIPTION: XR CHEST PA LATERAL 2 [...] by Remberto Carney M.D. JR: Report ID: [id number] Reading Location: [id number] Procedure Note Remberto Carney MD - 12/31/2024 [...] by Remberto Carney M.D., JR: Report ID: [id number] Reading Location: [id number] Lesley DE LEON IM XR PROCEDURES Final Result * Influenza A/B, RSV, and COVID-19 PCR Nasopharyngeal (12/31/2024 2:16 PM COMMUNITY SERVICE WORKER) COVID-19 RNA Negative Negative Comment:Testing performed by : [facility], [address] [place] [address]., [id number] Influenza A RNA Negative Negative YEVGENIY Comment:Testing performed by : [address] [address] Influenza B RNA Negative Negative YEVGENIY Comment:Testing performed by : [facility], [address] [place] [address]., [id number] RSV RNA Negative Negative YEVGENIY Comment: Interpretive data: Testing performed by [facility]. This test is performed using the [employer] Xpert Xpress CoV-2/Flu/RSV plus assay. This is a multiplex, real-time reverse transcriptase PCR assay intended for the qualitative detection of nucleic acid from SARS-CoV-2, influenza A, influenza B, and respiratory syncytial virus. This assay has been cleared by the [place] Food and Drug administration. The performance characteristics have been verified by the [facility]. Results must be considered in the clinical context, and a negative result does not rule out infection. Interpretive Data last revised 2023 Testing performed by: [facility], [address] [place] [address]., [address] Nasopharyngeal 12/31/2024 2: 16 PM COMMUNITY SERVICE WORKER 12/31/2024 2:24 PM COMMUNITY SERVICE WORKER Narrative YEVGENIY - 12/31/2024 3:09 PM COMMUNITY SERVICE WORKER Is the Patient experiencing symptoms consistent with COVID?->Yes Lesley [facility] LAB MICROBIOLOGY - GENERAL JOSE CORONADO Final Result YEVGENIY [id number] [facility] Department [place] [address] * eGFR (12/31/2024 2:16 PM COMMUNITY SERVICE WORKER) Pathologist [facility] [place] eGFR >90 >=60 mL/min/1. 73 m2 Comment: [...] was last reviewed 2021. Testing performed by: [address] [address] Blood 12/31/2024 2:16 PM COMMUNITY SERVICE WORKER 12/31/2024 2:24 PM COMMUNITY SERVICE WORKER us Lesley DE LEON LAB BLOOD ORDERABLES Final Resu lt YEVGENIY [id number] [facility] Department [place] [address] * (ABNORMAL) Differential, auto (12/31/2024 2:16 PM COMMUNITY SERVICE WORKER) Neutrophil abs 6.0 1.5 - 6.5 K/cumm Comment:Testing performed by : [address] [address] Imm gran abs 0.0 0.0 - 0.1 K/cumm YEVGENIY Comment:Testing performed by : [address] [address] Lymphocyte abs 2.7 0.8 - 3.3 K/cumm YEVGENIY Comment:Testing performed by : [address] [address] Monocyte abs 0.9(H) 0.2 - 0.8 K/cumm YEVGENIY Comment:Testing performed by : [address] [address] Eosinophil abs 0.1 0.0 - 0.5 K/cumm YEVGENIY Comment:Testing performed by : [address] [address] Basophil abs 0.0 0.0 - 0.1 K/cumm YEVGENIY Comment:Testing performed by : [address] [address] Neutrophil pct 61.6 % YEVGENIY Comment: Interpretive Data Percent cell count reference ranges are not reported, since discordance with absolute values may lead to misinterpretation of CBC data. Current Interpretive Data was last revised on 2018. Testing performed by: [address] [address] Imm gran pct 0.3 % YEVGENIY Comment: Interpretive Data Percent cell count reference ranges are not reported, since discordance with absolute values may lead to misinterpretation of CBC data. Current Interpretive Data was last revised on 2018. Testing performed by: [address] [address] Lymphocyte pct 27.3 % [facility] Comment: Interpretive Data Percent cell count reference ranges are not reported, since discordance with absolute values may lead to misinterpretation of CBC data. Current Interpretive Data was last revised on 2018. Testing performed by: [address] [address] Monocyte pct 9.4 % [facility] Comment: Interpretive Data Percent cell count reference ranges are not reported, since discordance with absolute values may lead to misinterpretation of CBC data. Current Interpretive Data was last revised on 2018. Testing performed by: [address] [address] Eosinophil pct 1.2 % [facility] Comment: Interpretive Data Percent cell count reference ranges are not reported, since discordance with absolute values may lead to misinterpretation of CBC data. Current Interpretive Data was last revised on 2018. Testing performed by: [address] [address] Basophil pct 0.2 % [facility] Comment: Interpretive Data Percent cell count reference ranges are not reported, since discordance with absolute values may lead to misinterpretation of CBC data. Current Interpretive Data was last revised on 2018. Testing performed by: [address] [address] Blood 12/31/2024 2:16 PM COMMUNITY SERVICE WORKER 12/31/2024 2:24 PM COMMUNITY SERVICE WORKER Lesley DE LEON LAB BLOOD ORDERABLES Final Resu lt YEVGENIY [address] [facility] Department [place] [address] * (ABNORMAL) CBC with auto differential (12/31/2024 2:16 PM COMMUNITY SERVICE WORKER) WBC 9.8 3.8 - 9.9 K/cumm Comment:Testing performed by : [address] [address] Hgb 12.8 11.9 - 15.5 g/dL YEVGENIY Comment:Testing performed by : [address] [address] Hct 40.0 35.6 - 45.5 % YEVGENIY Comment:Testing performed by : [address] [address] Plt 288 150 - 400 K/cumm YEVGENIY Comment:Testing performed by : [address] [address] MPV 9.7 9.1 - 12.3 fL YEVGENIY Comment:Testing performed by : [address] [address] RBC 4.74 3.90 - 5.20 M/cumm YEVGENIY Comment:Testing performed by : [address] [address] MCV 84.4 81.3 - 96.4 fL YEVGENIY Comment:Testing performed by : [address] [address] MCH 27.0(L) 27.1 - 33.3 pg YEVGENIY Comment:Testing performed by : [address] [address] MCHC 32.0(L) 32.3 - 35.7 g/dL YEVGENIY Comment:Testing performed by : [address] [address] RDW CV 12.2 11.1 - 14.9 % YEVGENIY Comment:Testing performed by : [address] [address] RDW SD 36.9 35.7 - 48.1 fL YEVGENIY TOM Comment:Testing performed by : [facility], [address] [place] [address]., [address] NRBC abs 0.00 0.00 - 0.01 K/cumm YEVGENIY TOM Comment:Testing performed by : [facility], [address] [place] [address]., [address] Blood 12/31/2024 2:16 PM COMMUNITY SERVICE WORKER 12/31/2024 2:24 PM COMMUNITY SERVICE WORKER [place]ley [place] LAB BLOOD ORDERABLES Final Resu lt Performing Organization Address [facility] Co de Phone Number YEVGENIY [phone] [facility] [place] [address] * (ABNORMAL) D-dimer, quantitative (12/31/2024 2:16 PM COMMUNITY SERVICE WORKER) D-Dimer 720(H) <=499 ng/mL FEU Comment: Interpretive [...] 68, VTE cut-off 680 ng/ml FEU. References; Schmegan HT et al. Brit Med J. 2013;346:f2492. Amelie et al. Annals Int Med. 2015;163:701-11. Current interpretive data was last revised on 2019. Testing performed by: [address] [address] Blood 12/31/2024 2:16 PM COMMUNITY SERVICE WORKER 12/31/2024 2:24 PM COMMUNITY SERVICE WORKER [facility] [place] LAB BLOOD ORDERABLES Final Resu lt Performing Organization Address City/[facility]/ZIP Co de Phone Number YEVGENIY [phone] [facility] [place] [address] * (ABNORMAL) Comprehensive metabolic panel (12/31/2024 2:16 PM COMMUNITY SERVICE WORKER) Sodium 137 135 - 145 mmol/L Comment:Testing performed by : [address] [address] Potassium, pl 4.1 3.3 - 4.9 mmol/L [facility] Comment:Testing performed by : [address] [address] Chloride 103 97 - 110 mmol/L [facility] Comment:Testing performed by : [address], [place]., [address] CO2 24 22 - 32 mmol/L [facility] Comment:Testing performed by : [address] [address] Anion gap 10 2 - 15 mmol/L [facility] Comment:Testing performed by : [address] [address] BUN 11 6 - 25 mg/dL [facility] Comment:Testing performed by : [address] [address] Creatinine 0.57(L) 0.60 - 1.10 mg/dL [facility] Comment:Testing performed by : [address] [address] Glucose 89 70 - 199 mg/dL [facility] Comment: Interpretive Data Fasting glucose >/= 126 [...] classification and Diagnosis of Diabetes Diabetes Care 202; 46: S19-S40. Current interpretive data was last revised 2022. Testing performed by: [address] [address] Calcium 9.7 8.5 - 10.3 mg/dL [facility] Comment:Testing performed by : [address] [address] Bilirubin, total 0.2 0.1 - 1.2 mg/dL YEVGENIY Comment:Testing performed by : [address] [address] Protein, pl 7.9 6.5 - 8.5 g/dL YEVGENIY Comment:Testing performed by : [address] [address] Albumin 4.4 3.5 - 5.0 g/dL YEVGENIY Comment:Testing performed by : [address] [address] Alk phos 89 40 - 130 Units/L YEVGENIY Comment:Testing performed by : [address] [address] ALT 21 7 - 45 Units/L YEVGENIY Comment:Testing performed by : [address] [address] AST 24 10 - 45 Units/L YEVGENIY Comment:Testing performed by : [address] [address] Blood 12/31/2024 2:16 PM COMMUNITY SERVICE WORKER 12/31/2024 2:24 PM COMMUNITY SERVICE WORKER Lesley DE LEON LAB BLOOD ORDERABLES Final Resu lt YEVGENIY [address] [facility] [place] [address] from Last 3 Months Insurance [facility] Care Teams Blending Tank Tender Helper Relationship Specialty Start Date End Date Lynsey Tammi Sanchez, BRAKE REPAIRER [address] Pediatric Emerg. Dept. [place] [id number] PCP - General Family Medicine 12/31/24
--- OUTSIDE RECORDS SUMMARY | 2025-02-10 12:28 | XMS_ITS | Clinical Summary ---
Author Organization [facility] Address [address] [place] [address] Care Team Providers Care Mechanical Adjuster Name Role Phone Steph Hightower MD Unavailable Tanner Paige MD Primary Care Provider Janell Celaya APNP Unavailable Allergies Active Allergy Reactions Criticality Noted Date [...] for Nausea. 20 tablet 01/25/20 25 Active cephALEXin (KEFLEX) 500 MG capsule Take 1 capsule (500 mg total) by mouth 2 (two) times daily for 10 days. 20 capsule 02/11/20 25 025 Active hydrOXYzine (VISTARIL) 25 MG capsule Take 1 capsule (25 mg total) by mouth 3 (three) times daily as needed. 09/10/20 24 025 Discontinued cephALEXin (KEFLEX) 500 MG capsule Take 1 capsule (500 mg total) by mouth 2 (two) times daily for 7 days. 14 capsule 01/25/20 25 025 Active Problems Problem Noted Date Diagnosed Date ([facility]) 05/13/2024 Headache 05/13/2024 Estimated Date of Delivery Comme nts Yes 09/17/2025 Encounters Date Type Department Care Team Description 02/10/2025 9:44 AM CDT - 02/10/2025 10:15 AM CDT Emergency [facility] [address] [place] [address] [place] [address] Kaitlin Colon MD Vomiting Discharge Disposition: Left Against Medical Advice 02/10/2025 Travel 01/24/2025 12:23 PM CDT - 01/24/2025 2:54 PM CDT Emergency [facility] [address] [place] [address] [place] [address] Salty Potts MD Vomiting ; Palpitations Discharge Disposition: Home or Self Care (Routine Discharge) 01/24/2025 Travel 01/21/2025 [facility] [address] [place] [address] Steph Hightower MD Stress Test 01/21/2025 Scan [facility] [address] [place] [address] Scanned, Doc Pccl Stress Test (SCAN) 01/18/2025 8:06 AM CDT - 01/18/2025 11:59 PM CDT Hospital Encounter [facility] [address] [place] [address] [place] [address] Sami Mehta, Discharge Disposition: Home or Self Care (Routine Discharge) 01/17/2025 3:47 PM CDT - 01/17/2025 9:05 PM CDT Emergency [facility] [address] [place], [place] [address] [address] Sami Mehta, DO Leg Pain Discharge Disposition: Home or Self Care (Routine Discharge) 01/17/2025 Travel 01/14/2025 1:05 PM CDT - 01/14/2025 11:59 PM CDT [facility] [place] [address] Shawn Mcginnis MD Discharge Disposition: Home or Self Care (Routine Discharge) 01/14/2025 Orders Only [address] [place] [address] Shawn Mcginnis MD 01/13/2025 2:01 PM CDT - 01/13/2025 6:59 PM CDT Emergency [facility] [address] [place] [address] [place] [address] Kaitlin Colon MD Complications Discharge Disposition: Home or Self Care (Routine Discharge) 01/13/2025 Travel 12/01/2024 7:33 PM REPRESENTATIVE GOVERNMENT RELATIONS - 12/01/2024 9:34 PM REPRESENTATIVE GOVERNMENT RELATIONS Emergency [facility] [address] [place] [address] [place] [address] Wayne Ledesma MD Body Aches; Cough Discharge [...] Recorded Patient Health Questionnaire-2 Score 0 05/13/2024 [facility] - Occupational Stress Questionnaire Answer Date Recorded [...] Mass Index 26.63 02/10/2025 9:51 AM CDT Plan of Treatment Health Maintenance Due Date Last Done Comments Cervical Cancer Screening Pap Smear (Age 21 to 29) Every 3 Years 1999 01/27/2025, 01/27/2025, 01/27/2025 Cervical Cancer Screening 1999 Annual Physical 2002 Hepatitis C 2017 HPV Vaccines (2 - 3-dose series) 02/02/2017 01/05/2017 DTaP, Tdap and Td Vaccines (7 - Td or Tdap) 06/21/2022 06/21/2012, 06/29/2004, 08/30/2000, Additional history exists COVID-19 Vaccine ( - season) 2024 RSV Immunization or 60+ Years (1 - 1-dose 75+ series) 2074 Hepatitis B Vaccines Completed 07/29/2000, 04/18/2000, 1999, Additional history exists Meningococcal Vaccine Completed 01/05/2017, 012 Meningococcal B Vaccine Aged Out No l onger eligible based on patient's age to complete this topic Pneumococcal Vaccine: Pediatrics (0 to 5 Years) and At-Risk Patients (6 to 49 Years) Aged Out No longer eligible based on patient's age to complete this topic RSV Immunizations Under 20 Months Aged Out No longer eligible based on patient's age to complete this topic Procedures Procedure Name Priority Date/Time Associated Diagnosis Comments STREP A RAPID STAT 02/10/2025 9:53 AM CDT INFLUENZA A & B STAT 02/10/2025 9:53 AM CDT CORONAVIRUS (COVID-19) ANTIGEN STAT 02/10/2025 9:53 AM CDT XR CHEST PORTABLE STAT 01/24/2025 1:4 8 [...] CDT Amenorrhea Encounter for test, result positive ([facility]) US OB TRANSVAG STAT 01/13/2025 6:37 PM [...] A & B STAT 12/01/2024 7:50 PM REPRESENTATIVE GOVERNMENT RELATIONS CORONAVIRUS (COVID-19) ANTIGEN STAT 12/01/2024 7:50 PM REPRESENTATIVE GOVERNMENT RELATIONS from Last 3 Months Results * CORONAVIRUS (COVID-19) ANTIGEN (02/10/2025 9:53 AM CDT) Only the most recent of2 resultswithin the time period is included. CORONAVIRUS ANTIGEN IA NEGATIVE NEGATIVE 02/10/2025 10:41 AM CDT [facility] Comment: NEGATIVE RESULTS DO NOT RULE [...] SPECIMEN TYPE NASAL 02/10/2025 9:56 AM CDT [facility] NASAL NASAL STRUCTURE / Unknown 02/10/2025 9:53 AM CDT Kaitlin Colon MD MICROBIOLOGY - GENERAL JOSE CORONADO Final Result [facility] [address] [place] [address], * INFLUENZA A & B (02/10/2025 9:53 AM CDT) Only the most recent of2 resultswithin the time period is included. SPECIMEN TYPE (INFLUENZA) NASOPHARYNGEAL SWAB 02/10/2025 9:56 AM CDT [facility] INFLUENZA A NEGATIVE NEGATIVE 02/10/2025 10:41 AM CDT [facility] INFLUENZA B NEGATIVE NEGATIVE 02/10/2025 10:41 AM CDT [facility] Comment: A NEGATIVE RESULT DOES NOT EXCLUDE INFLUENZA VIRUS INFECTION. IF INFLUENZA IS CIRCULATING IN YOUR COMMUNITY, A DIAGNOSIS OF INFLUENZA SHOULD BE CONSIDERED BASED ON A PATIENT'S CLINICAL PRESENTATION AND EMPIRIC ANTIVIRAL TREATMENT SHOULD BE CONSIDERED IF INDICATED. NASOPHARYNGEAL SWAB / Unknown 02/10/2025 9:53 AM CDT Kaitlin Colon MD MICROBIOLOGY - GENERAL JOSE CORONADO Final Result Performing Organization Address City/[facility]/ZIP Co de Phone Number [address] [address], [place] [phone] * (ABNORMAL) STREP A RAPID (02/10/2025 9:53 AM CDT) SPECIMEN SOURCE THROAT 02/10/2025 9:56 AM CDT [facility] RAPID STREP TEST POSITIVE(A) NEGATIVE 02/10/2025 10:38 AM CDT [facility] Comment: CALLED TO MATHEW DUFFY 103 02/10/25 AFW READ BACK AND VERIFIED STRUCTURE OF ANTERIOR PORTION OF NECK / Unknown 02/10/2025 9:53 AM CDT Kaitlin Colon MD MICROBIOLOGY - GENERAL JOSE CORONADO Final Result [facility] [address] [place] [address], [place] [phone] * XR CHEST PORTABLE (01/24/2025 1:48 PM CDT) Anatomical Region Laterality Modality Chest Radiographic Jazmin ging 01/24/2025 1:5 0 PM CDT Impressions 01/24/2025 1:51 PM CDT IMPRESSION: No significant change. No acute disease. Referred By: Interpreted By: Paulino Mitchell MD, 01/24/2025 1:50 PM Narrative 01/24/2025 1:51 PM CDT [address] [place] [address] Examination: Portable chest. Exam time: 1342 hours. Clinical history: Left-sided chest pain. Palpitations. Comparison: 05/18/2023. Technique: AP upright view. Findings: The cardiomediastinal silhouette is stable. The heart remains within normal limits for size. Pulmonary vascularity is within normal limits. The lungs and pleural spaces remain free of any active process. The visualized bony thorax is unremarkable. Procedure Note Paulino Mitchell MD - 01/24/[address] [place] [address] Examination: Portable chest. Exam time: 1342 hours. [...] COLOR (U) YELLOW 01/24/2025 1:57 PM CDT [facility] TRANSPARENCY CLEAR 01/24/2025 1:57 PM CDT [facility] SPECIFIC GRAVITY (U) 1.030(H) 1.000 - 1.025 01/24/2025 1:57 PM CDT [facility] Comment:EQUAL TO OR GREATER THAN U PH 6.0 5.0 - 8.0 01/24/2025 1:57 PM CDT [facility] LEUKOCYTES (U) NEGATIVE NEGATIVE 01/24/2025 1:57 PM CDT [facility] NITRITES NEGATIVE NEGATIVE 01/24/2025 1:57 PM CDT [facility] PROTEIN RANDOM (U) NEGATIVE NEGATIVE 01/24/2025 1:57 PM CDT [facility] GLUCOSE (U) NEGATIVE NEGATIVE 01/24/2025 1:57 PM CDT [facility] KETONES MG/DL (U) NEGATIVE NEGATIVE 01/24/2025 1:57 PM CDT [facility] UROBILINOGEN 0.2 <1.0 EU/DL 01/24/2025 1:57 PM CDT [facility] BILIRUBIN (U) NEGATIVE NEGATIVE 01/24/2025 1:57 PM CDT [facility] BLOOD (U) NEGATIVE NEGATIVE 01/24/2025 1:57 PM CDT [facility] WBC/HPF 5-10(A) 0 - 5 /HPF 01/24/2025 1:57 PM CDT [facility] RBC/HPF 0-5 0 - 5 /HPF 01/24/2025 1:57 PM CDT [facility] EPI/LPF MANY /LPF 01/24/2025 1:57 PM CDT [facility] BACTERIA (U) 3+ /HPF 01/24/2025 1:57 PM CDT [facility] MUCUS PRESENT 01/24/2025 1:57 PM CDT [facility] URINE SPECIMEN OBTAINED BY CLEAN CATCH PROCEDURE / Unknown 01/24/2025 1:20 PM CDT us Salty Potts MD URINE ORDERABLES Final Resu lt [facility] [address] [place] [address], * TEST URINE (01/24/2025 1:20 PM CDT) URINE HCG TEST POSITIVE 01/24/2025 1:30 PM CDT [facility] SPECIFIC GRAVITY >1.030 01/24/2025 1:30 PM CDT [facility] URINE SPECIMEN FROM URETHRA / Unknown 01/24/2025 1:20 PM CDT us Salty Potts MD URINE ORDERABLES Final Resu lt [facility] [address] [place] [address], * (ABNORMAL) COMPREHENSIVE METABOLIC PANEL (01/24/2025 1:06 PM CDT) Only the most recent of2 resultswithin the time period is included. Pathologist [facility] SODIUM S/P/B 136 136 - 145 MMOL/L 01/24/2025 1:34 PM CDT [facility] POTASSIUM S/P/B 3.6 3.5 - 5.1 MMOL/L 01/24/2025 1:34 PM CDT [facility] CHLORIDE S/P/B 102 98 - 107 MMOL/L 01/24/2025 1:34 PM CDT [facility] CO2 28.3 21.0 - 32.0 MMOL/L 01/24/2025 1:34 PM CDT [facility] GLUCOSE 113(H) 70 - 99 MG/DL 01/24/2025 1:34 PM CDT [facility] Comment: FASTING GLUCOSE 100 TO 125 MG/DL IS CONSISTENT WITH IMPAIRED FASTING GLUCOSE. FASTING GLUCOSE >125 MG/DL IS CONSISTENT WITH DIABETES. RANDOM GLUCOSE >200 MG/DL WITH HYPERGLYCEMIC SYMPTOMS IS CONSISTENT WITH DIABETES. PER ADA GUIDELINES BUN 12 6 - 24 MG/DL 01/24/2025 1:34 PM CDT [facility] CREATININE S/P/B 0.64 0.55 - 1.02 MG/DL 01/24/2025 1:34 PM CDT [facility] CALCIUM S/P/B 9.0 8.4 - 10.5 MG/DL 01/24/2025 1:34 PM T [facility] BILIRUBIN TOTAL S/P/B 0.2 0.2 - 1.0 MG/DL 01/24/2025 1:34 PM [facility] Comment: THIS ASSAY IS NOT RECOMMENDED FOR PATIENTS UNDERGOING TREATMENT WITH ELTROMBOPAG DUE TO THE POTENTIAL FOR FALSELY ELEVATED RESULTS. ALKALINE PHOSPHATASE S/P/B 80 37 - 98 U/L 01/24/2025 1:34 PM [facility] AST 13(L) 15 - 37 U/L 01/24/2025 1:34 PM [facility] ALT 26 14 - 59 U/L 01/24/2025 1:34 PM [facility] TOTAL PROTEIN S/P/B 7.4 6.4 - 8.2 G/DL 01/24/2025 1:34 PM [facility] ALBUMIN S/P/B 3.5 3.4 - 5.0 G/DL 01/24/2025 1:34 PM [facility] ANION GAP 5.7 5.0 - 15.0 MMOL/L 01/24/2025 1:34 PM [facility] OSMOLALITY (CALC) 283 MOSM/KG 025 1:34 PM [facility] Comment:REFERENCE RANGE NOT ESTABLISHED GFR ESTIMATE >90 >89 ML/MIN/1. 73 M2 01/24/2025 1:34 PM [facility] GFR NOTES GFR REFERENCE S: 01/24/2025 1:34 PM [facility] Comment: THE ESTIMATED GFR IS CALCULATED [...] Salty Potts MD LABORATORY Final Resul t [facility] [address] [place] [address], * CBC W/DIFF AUTOMATED (01/24/2025 1:06 PM CDT) Only the most recent of3 resultswithin the time period is included. WBC 10.23 4.00 - 10.80 x10'3/uL 01/24/2025 1:38 PM CDT [facility] RBC 4.38 4.10 - 5.40 x10'6/uL 01/24/2025 1:38 PM CDT [facility] HGB 12.0 12.0 - 16.0 G/DL 01/24/2025 1:38 PM CDT [facility] HCT 36.1 36.0 - 47.0 % 01/24/2025 1:38 PM CDT [facility] MCV 82.4 78.0 - 100.0 FL 01/24/2025 1:38 PM CDT [facility] MCH 27.4 27.0 - 31.0 PG 01/24/2025 1:38 PM CDT [facility] MCHC 33.2 33.0 - 36.0 G/DL 01/24/2025 1:38 PM CDT [facility] RDW 12.2 11.5 - 14.5 % 01/24/2025 1:38 PM CDT [facility] PLT 325 150 - 350 x10'3/uL 01/24/2025 1:38 PM CDT [facility] MPV 9.3 7.4 - 10.4 FL 01/24/2025 1:38 PM CDT [facility] CBC COMMENT NORMAL REFERENCE RANGE NOT ESTABLISHED FOR THE PROPORTIONAL LEUKOCYTE DIFFERENTIAL. 01/24/2025 1:38 PM CDT [facility] NEUTROPHILS % 69.9 % 01/24/2025 1:38 PM CDT [facility] LYMPHOCYTES % 19.6 % 01/24/2025 1:38 PM CDT [facility] MONOCYTES % 8.9 % 01/24/2025 1:38 PM CDT [facility] EOSINOPHILS % 1.1 % 01/24/2025 1:38 PM CDT [facility] BASOPHILS % 0.2 % 01/24/2025 1:38 PM CDT [facility] IMMATURE GRANS % 0.3 % 01/25/20 1:38 PM CDT [facility] NRBC % 0.0 % 01/24/2025 1:38 PM CDT [facility] ABS. NEUTROPHILS 7.15 1.60 - 8.30 x10'3/uL 01/24/2025 1:38 PM CDT [facility] ABS. LYMPHOCYTES 2.01 0.80 - 4.70 x10'3/uL 01/24/2025 1:38 PM CDT [facility] ABS. MONOCYTES 0.91 0.00 - 1.50 x10'3/uL 01/24/2025 1:38 PM CDT [facility] ABS. EOSINOPHILS 0.11 0.00 - 0.40 x10'3/uL 01/24/2025 1:38 PM CDT [facility] ABS. BASOPHILS 0.02 0.00 - 0.20 x10'3/uL 01/24/2025 1:38 PM CDT [facility] ABS. IMMATURE GRANULOCYTES 0.03 0.00 - 0.03 x10'3/uL 01/24/2025 1:38 PM CDT [facility] ABS. NUCLEATED RBC'S 0.00 0.00 - 0.01 x10'3/uL 01/24/2025 1:38 PM CDT [facility] 01/24/2025 1:06 PM CDT Salty Potts MD LABORATORY Final Resul t Performing Organization Address City/[facility] Co de Phone Number [facility] [address] [place] [id number], * TROPONIN, QUANT (01/24/2025 1:06 PM CDT) Only the most recent of3 resultswithin the time period is included. TROPONIN I HIGH SENSITIVITY 4 0 - 51 ng/L 01/24/2025 1:34 PM CDT [facility] 01/24/2025 1:06 PM CDT Salty Potts MD LABORATORY Final Resul t Performing Organization Address [facility] Co de Phone Number [facility] [address] [place] [phone], * LIPASE (01/24/2025 1:06 PM CDT) LIPASE 25 16 - 77 UNITS/L 01/24/2025 1:34 PM CDT [facility] 01/24/2025 1:06 PM CDT Salty Potts MD LABORATORY Final Resul t Performing Organization Address [facility] de Phone Number [facility] [address] [place] [phone], * ECG 12 lead (01/24/2025 12:48 PM CDT) Only the most recent of2 resultswithin the time period is included. 01/24/2025 12:4 8 PM CDT Narrative [facility] - 01/24/2025 1:39 PM CDT [address] [place] [address] Test Date: 2025-01-24 Pat Name: LIBRADO MEJIA Department: 3 Room: EXAM 404 Gender: Female Paraffiner: : 2000 Requested By: SALTY POTTS Order Number: [id number] Fifi MD: Logan Wong Measurements Intervals Maramec Rate: 79 P: 71 CT: 147 QRS: 52 QRSD: 80 T: 45 QT: 337 QTc: 388 Interpretive Statements SINUS RHYTHM Procedure Note Logan Wong MD - 01/24/[address] [place] [address] Test Date: 2025-01-24 Pat Name: LIBRADO MEJIA Department: 3 Room: EXAM 404 Gender: Female Paraffiner: : 2000 Requested By: SALTY POTTS Order Number: [id number] Fifi MD: Logan Wong Measurements Intervals [place]amec Rate: 79 P: 71 CT: 147 QRS: 52 QRSD: 80 T: 45 QT: 337 QTc: 388 Interpretive Statements SINUS RHYTHM Salty Potts MD ECG ORDERABLES Final Resul t Performing Organization Address [facility] de Phone Number [facility] * STRESS TEST (01/21/2025) us Doc Pccl Scanned SCANNING Final Result Performing Organization Address [facility] de Phone Number [facility] ONBASE * USV AKOSUA DUPLEX LOW EXT ADAM (01/18/2025 8:57 AM CDT) Anatomical Region Laterality Modality Extremity Ultrasound 01/18/2025 9:23 AM CDT Impressions 01/18/2025 9:24 AM CDT IMPRESSION: No evidence of deep venous thrombosis. Ordered By: SAMI MEHTA Interpreted By: Paulino Mitchell MD, 01/18/2025 9:23 AM Narrative 01/18/2025 9:24 AM CDT [place] [address] [address] [place] [address] Examination: Bilateral lower extremity venous color Doppler [...] Procedure Note Paulino Mitchell MD - 01/18/[address] [place] [address] Examination: Bilateral lower extremity venous color Doppler [...] By: Paulino Mitchell MD, 01/18/2025 9:23 AM us Sami Mehta DO US VASC Final Result * CTA CHEST PE PROTOCOL (01/17/2025 7:29 PM CDT) Anatomical Region Laterality Modality Chest Computed Tomogra phy 01/17/2025 7:32 PM CDT Impressions 01/17/2025 7:34 PM CDT IMPRESSION: 1. No evidence of pulmonary embolism. No acute findings. Ordered By: SAMI MEHTA Interpreted By: German Chang MD, 01/17/2025 7:32 PM Narrative 01/17/2025 7:34 PM CDT [address] [place] [address] CTA CHEST WITH CONTRAST PULMONARY EMBOLISM PROTOCOL [...] Procedure Note German Chang MD - 01/17/[address] [place] [address] CTA CHEST WITH CONTRAST PULMONARY EMBOLISM PROTOCOL [...] D-DIMER, QUANTITATIVE (01/17/2025 5:50 PM CDT) Pathologist [facility] D-DIMER 2,027(H) 0 - 500 ng{FEU}/mL 01/17/2025 6:10 PM CDT [facility] Comment: CALLED TO MATHEW DUFFY RN [...] CDT Sami Mehta DO LABORATORY Final Result [facility] [address] [place] [address], * (ABNORMAL) HCG QUANT (SERUM)-CHORIONIC GONADOTROPIN (01/14/2025 1:15 PM CDT) Only the most recent of2 resultswithin the time period is included. Pathologist [facility] HCG QUANTITATIVE 5,590(H) 0.0 - 6.0 MIU/ML 01/14/2025 2:16 PM CDT [facility] Comment: WEEKS OF REFERENCE RANGES NON- [...] Shawn Mcginnis MD LABORATORY Final Resu lt [facility] [address] [email or web address] [address], * US OB TRANSVAG (01/13/2025 6:37 PM [...] 5:28 PM Narrative 01/13/2025 5:39 PM CDT [place] [id number] [facility] [place] [address] EXAMINATION: US OB TRANSVAG HISTORY: Abdominal pain, [...] Procedure Note Taiwo Haddad MD - 01/13/[address] [place] [address] EXAMINATION: US OB TRANSVAG HISTORY: Abdominal pain, [...] interstitialectopic gestation. Recommend close clinical follow-up and ufrfj-ofxzoldptx-ig ultrasound as discussed above. 2. Estimated gestational age by mean sac diameter is 5 weeks, 2 days. 3. No evidence of ovarian torsion. 4. Trace free pelvic fluid. Referred By: Interpreted By: Taiwo Haddad MD, 01/13/2025 5:28 PM Kaitlin Colon MD ULTRASOUND Final Resul t * TYPE AND SCREEN (01/13/2025 4:02 PM CDT) ABO/RH B POSITIVE 01/13/2025 4:56 PM CDT [facility] ANTIBODY SCREEN NEGATIVE 01/13/2025 4:56 PM CDT [facility] SAMPLE EXPIRATION 01/16/2025,2 359 01/13/2025 4:56 PM CDT [facility] 01/13/2025 4:02 PM CDT Kaitlin Colon MD BLOOD BANK TEST ORDERABLES Final Result Performing Organization Address [facility] Co de Phone Number [facility] [address] [place] [phone], * CULTURE URINE (01/13/2025 3:43 PM CDT) SPEC DESCRIPTION URINE CLEAN CATCH 01/13/2025 3:49 PM CDT [facility] SPECIAL REQUESTS NO SPECIAL REQUEST 01/13/2025 3:49 PM CDT [facility] CULTURE RESULT NO GROWTH (< OR = 1,000 CFU/ML) 01/15/2025 10:12 AM CDT [facility] URINE SPECIMEN OBTAINED BY CLEAN CATCH PROCEDURE / Unknown 01/13/2025 3:43 PM CDT 01/13/2025 3:51 PM CDT Kaitlin Colon MD MICROBIOLOGY - GENERAL [facility] Final Result Performing Organization Address [facility] de Phone Number [facility] [address] [place] [address], [phone] [facility] [address] [place] [address], * (ABNORMAL) BASIC METABOLIC PANEL (01/13/2025 3:23 PM CDT) SODIUM S/P/B 136 136 - 145 MMOL/L 01/13/2025 4:22 PM CDT [facility] POTASSIUM S/P/B 3.6 3.5 - 5.1 MMOL/L 01/13/2025 4:22 PM CDT [facility] CHLORIDE S/P/B 101 98 - 107 MMOL/L 01/13/2025 4:22 PM CDT [facility] CO2 27.7 21.0 - 32.0 MMOL/L 01/13/2025 4:22 PM CDT [facility] GLUCOSE 106(H) 70 - 99 MG/DL 01/13/2025 4:22 PM CDT [facility] Comment: FASTING GLUCOSE 100 TO 125 MG/DL IS CONSISTENT WITH IMPAIRED FASTING GLUCOSE. FASTING GLUCOSE >125 MG/DL IS CONSISTENT WITH DIABETES. RANDOM GLUCOSE >200 MG/DL WITH HYPERGLYCEMIC SYMPTOMS IS CONSISTENT WITH DIABETES. PER ADA GUIDELINES BUN 11 6 - 24 MG/DL 01/13/2025 4:22 PM CDT [facility] CREATININE S/P/B 0.65 0.55 - 1.02 MG/DL 01/13/2025 4:22 PM CDT [facility] CALCIUM S/P/B 9.0 8.4 - 10.5 MG/DL 01/13/2025 4:22 PM CDT [facility] ANION GAP 7.3 5.0 - 15.0 MMOL/L 01/13/2025 4:22 PM CDT [facility] OSMOLALITY (CALC) 282 MOSM/KG 025 4:22 PM CDT [facility] Comment:REFERENCE RANGE NOT ESTABLISHED GFR ESTIMATE >90 >89 ML/MIN/1. 73 M2 01/13/2025 4:22 PM CDT [facility] GFR NOTES GFR REFERENCE S: 01/13/2025 4:22 PM CDT [facility] Comment: THE ESTIMATED GFR IS [...] Kaitlin Colon MD LABORATORY Final Resul t [facility] [email or web address] [place], [place] [address] [phone] from Last 3 Months Insurance FLOOD Care Teams Mechanical Adjuster Relationship Specialty Start Date End Date Tanner Paige MD [address] [facility] [place] [address] PCP - General FAMILY PRACTICE 07/01/24 Steph Hightower MD [address] [place] [address] Consulting Physician CARDIOVASCULAR DISEASE 11/07/22 Janell Celaya APNP [address] [place] [address] NURSE PRACTITIONER 12/01/24
--- OUTSIDE RECORDS SUMMARY | 2025-02-10 12:28 | XMS_ITS | Encounter Summary ---
Author Organization [facility] Healthcare Address [address] [place] [address] Care Team Providers Care Cloth Measurer Name Role Phone Kera Flanagan NP Primary Care Provider [phone] Tammi Menon APRN Primary Care Provider Encounter Details Date Type Department Care Team (Late st Contact Info) Description 10/25/[address] [facility] Home Care Services [address] [facility] [facility] [address] [place] [address] Carli Whitaker, [facility] Social History Tobacco Use Types Packs/Day Years [...] on file Legal Sex Female 11:55 PM ASSISTANT CASE MANAGER Gender Identity Not on file Sexual Orientation Not on file documented as of this encounter Plan of Treatment Not on file documented as of this encounter Visit Diagnoses Not on filedocumented in this encounter Additional Health Concerns Infection Onset Date Last Indicated Resolved Time COVID: Suspected 12/31/2024 12/31/2024 12/31/2024 3:10 PM ASSISTANT CASE MANAGER documented as of this encounter Care Teams Cloth Measurer Relationship Specialty Start Date End Date Kera Flanagan, [place] PCP - General 05/30/22 12/30/24 Tammi Menon APRN [address] [place] [address] PCP - General Family Medicine 12/31/24 documented as of this encounter
--- OUTSIDE RECORDS SUMMARY | 2025-02-10 12:28 | XMS_ITS | Encounter Summary ---
Author Organization [facility] Address [address] [place] [address] Care Team Providers Care Hydrographic Surveyor Name Role Phone Steph Hightower MD Unavailable Tanner Paige MD Primary Care Provider Janell Celaya APNP Unavailable Encounter Details Date Type Department Care Team (Latest Contact Info) Description 02/10/2025 Travel Social History Tobacco Use Types Packs/Day Years [...] Recorded Patient Health Questionnaire-2 Score 0 05/13/2024 [facility] - Occupational Stress Questionnaire Answer Date Recorded [...] AM CDT documented as of this encounter Functional Status * Are you [...] Status No Risk Indicated 02/10/2025 9:52 AM JONIT Sampson Caldera RN Active * [place] Suicide Severity Rating Scale (Screener/Recent Self-Report) Question Answer Date of Assessment Author Status 1. Wish to be (Past 1 Month) No 02/10/2025 9:52 AM JONIT Nhi Caldera RN Activ e 2. Non-Specific Active Suicidal Thoughts (Past 1 Month) No 02/10/2025 9:52 AM JONIT Nhi Caldera RN Activ e 6. Suicidal Behavior (Lifetime) No 02/10/2025 9:52 AM JOINT Nhi Caldera RN Activ e documented as of this encounter Mental Status * Because of a physical, mental, or emotional condition, do you have serious difficulty concentrating, remembering, or making decisions? Answer Entry Date Author Status No 05/13/2024 1:23 AM JONIT Mariama Murray RN Active documented in this encounter Plan of Treatment Not on file documented as of this encounter Visit Diagnoses Not on filedocumented in this encounter Additional Health Concerns Infection Onset Date Last Indicated Resolved Time COVID-19 Rule Out 02/10/2025 02/10/2025 02/10/2025 10:41 AM CDT Respiratory Rule-Out 02/10/2025 02/10/2025 025 10:41 AM CDT documented as of this encounter Care Teams Hydrographic Surveyor Relationship Specialty Start Date End Date Tanner Paige MD [address] [facility] [place] [address] PCP - General FAMILY PRACTICE 07/01/24 Steph Hightowre MD [address] [place] [address] Consulting Physician CARDIOVASCULAR DISEASE 11/07/22 Janell Celaya APNP [address] [place] [phone] NURSE PRACTITIONER 12/01/24 documented as of this encounter
--- OUTSIDE RECORDS SUMMARY | 2025-02-10 12:28 | XMS_ITS | Referral Summary ---
Author Organization [facility] Address [address] [place] [address] Care Team Providers Care Shift Boss Name Role Phone Tammi Menon DOREEN Primary Care Provider Encounters Date Type Department Care Team Description 12/31/2024 2:47 PM SAFETY OFFICER - 12/31/2024 5:34 PM [facility] Emergency [facility] Emergency Department [facility] [place] [address] Shortness of breath (Primary Dx) [...] have care with Dr. Ortega Denson in [place], [place]. Assessment & Plan (07/04/2019 7:48 PM CDT): - no plans to initiate care in [place] - gave Rx for doxylamine/pyridoxine for nausea - encouraged smoking cessation; recommended she d/w Dr. Addison Denson when she establishes care Abdominal pain in 07/04/2019 Overview (07/04/2019): 07/04/2019: presented to [facility], r/o for acute process. Transfer to [facility] for dating confirmation. Reports no BM in [...] on file Legal Sex Female 11:55 PM SAFETY OFFICER Gender Identity Not on file Sexual Orientation Not on file Last Filed Vital Signs Vital Sign Reading Time Taken Comments Blood Pressure 101/69 12/31/2024 5:25 PM SAFETY OFFICER Pulse 77 12/31/2024 5:25 PM SAFETY OFFICER Temperature 37.1 C (98.7 F) 12/31/2024 2:09 PM SAFETY OFFICER Respiratory Rate 18 12/31/2024 5:25 PM SAFETY OFFICER Oxygen Saturation 100% 12/31/2024 5:25 PM SAFETY OFFICER Inhaled Oxygen Concentration - - Weight 72.7 kg (160 lb 4.4 oz) 12/31/2024 2:09 P M SAFETY OFFICER Height 165.1 cm (5' 5 ) 12/31/2024 2:09 PM SAFETY OFFICER Body Mass Index 26.67 12/31/2024 2:09 PM SAFETY OFFICER Plan of Treatment Not on file Procedures Procedure Name Priority Date/Time Associated Diagnosis Comments CT CHEST PE W CONTRAST ED 3:51 PM SAFETY OFFICER POCT HCG, URINE Routine 12/31/2024 3:19 PM SAFETY OFFICER XR CHEST PA LATERAL 2 VIEWS ED 12/31/2024 2:26 PM SAFETY OFFICER EGFR STAT 12/31/2024 2:16 PM SAFETY OFFICER DIFFERENTIAL AUTO STAT 12/31/2024 2:1 6 PM SAFETY OFFICER D-DIMER, QUANTITATIVE STAT 12/31/2024 2:16 PM SAFETY OFFICER COMPREHENSIVE METABOLIC PANEL STAT 12/31/2024 2:16 PM SAFETY OFFICER CBC WITH AUTO DIFFERENTIAL STAT 12/31/2024 2:16 PM SAFETY OFFICER INFLUENZA A/B, RSV, AND COVID-19 PCR STAT 12/31/2024 2:16 PM SAFETY OFFICER from Last 3 Months Results * CT Chest PE (CTA) W Contrast (12/31/2024 3:51 PM SAFETY OFFICER) Anatomical Region Laterality Modality Body N/A Computed Tomogra phy 12/31/2024 4:49 PM SAFETY OFFICER Narrative 12/31/2024 5:03 PM SAFETY OFFICER EXAM DESCRIPTION: CT CHEST PE (CTA) W [...] Quang Decker M.D. LC: GABRIEL Report ID: [id number] Reading Location: [id number] Procedure Note Yumiko Decker MD - 12/31/2024 [...] Quang Decker M.D. LC: GABRIEL Report ID: [id number] Reading Location: [place] [address] Lesley DE [facility] [place] [place] CT PROCEDURES Final Result * POCT hCG, urine (12/31/2024 3:19 PM SAFETY OFFICER) HCG, ur, POC Negative Negative Lot Number [id number] QC Backgroud Clear Acceptable QC Control Line Acceptable Urine 12/31/2024 3:19 PM SAFETY OFFICER Lesley DE LEON POINT OF CARE TEST ORDERABLES F inal Result * XR Chest PA Lateral 2 Views (12/31/2024 2:26 PM SAFETY OFFICER) Anatomical Region Laterality Modality Body, Chest N/A Computed Radiogr aphy 12/31/2024 2:43 PM SAFETY OFFICER Narrative 12/31/2024 2:43 PM SAFETY OFFICER EXAM DESCRIPTION: XR CHEST PA LATERAL 2 [...] by Remberto Carney M.D. JR: Report ID: [id number] Reading Location: [id number] Procedure Note Remberto Carney MD - 12/31/2024 [...] by Remberto Carney M.D. JR: Report ID: [id number] Reading Location: [place] [address] us Lesley DE LEON IMG XR PROCEDURES Final Result * Influenza A/B, RSV, and COVID-19 PCR Nasopharyngeal (12/31/2024 2:16 PM SAFETY OFFICER) Pathologist [facility] COVID-19 RNA Negative Negative Comment:Testing performed by : [address], [address] Influenza A RNA Negative Negative [facility] Comment:Testing performed by : [address] [address] Influenza B RNA Negative Negative [facility] Comment:Testing performed by : [address], [address] RSV RNA Negative Negative [facility] Comment: Interpretive data: Testing performed by [facility]. This test is performed using the [place] Xpert Xpress CoV-2/Flu/RSV plus assay. This is a multiplex, real-time reverse transcriptase PCR assay intended for the qualitative detection of nucleic acid from SARS-CoV-2, influenza A, influenza B, and respiratory syncytial virus. This assay has been cleared by the [place] Food and Drug administration. The performance characteristics have been verified by the [facility]. Results must be considered in the clinical context, and a negative result does not rule out infection. Interpretive Data last revised 2023 Testing performed by: [address] [address] Nasopharyngeal 12/31/2024 2: 16 PM SAFETY OFFICER 12/31/2024 2:24 PM SAFETY OFFICER Narrative YEVGENIY - 12/31/2024 3:09 PM SAFETY OFFICER Is the Patient experiencing symptoms consistent with COVID?->Yes us Lesley DE LEON LAB MICROBIOLOGY - GENERAL ORDE RABLES Final Result Performing Organization Address City/State/[facility] de Phone Number YEVGENIY [facility] [place] [address] * eGFR (12/31/2024 2:16 PM SAFETY OFFICER) Pathologist [facility] eGFR >90 >=60 mL/min/1. 73 m2 Comment: [...] was last reviewed 2021. Testing performed by: [address] [address] Blood 12/31/2024 2:16 PM SAFETY OFFICER 12/31/2024 2:24 PM SAFETY OFFICER us Lelsey DE LEON LAB BLOOD ORDERABLES Final Resu lt Performing Organization Address [facility] Co de Phone Number YEVGENIY [facility] Department [place] [address] * (ABNORMAL) Differential, auto (12/31/2024 2:16 PM SAFETY OFFICER) Pathologist [facility] Neutrophil abs 6.0 1.5 - 6.5 K/cumm Comment:Testing performed by : [address] [address] Imm gran abs 0.0 0.0 - 0.1 K/cumm YEVGENIY Comment:Testing performed by : [address] [address] Lymphocyte abs 2.7 0.8 - 3.3 K/cumm [facility] Comment:Testing performed by : [address], [place]., [address] Monocyte abs 0.9(H) 0.2 - 0.8 K/cumm [facility] Comment:Testing performed by : [address], [place]., [address] Eosinophil abs 0.1 0.0 - 0.5 K/cumm [facility] Comment:Testing performed by : [address], [place]., [address] Basophil abs 0.0 0.0 - 0.1 K/cumm [facility] Comment:Testing performed by : [address] [address] Neutrophil pct 61.6 % [facility] Comment: Interpretive Data Percent cell count reference ranges are not reported, since discordance with absolute values may lead to misinterpretation of CBC data. Current Interpretive Data was last revised on 2018. Testing performed by: [address] [address] Imm gran pct 0.3 % [facility] Comment: Interpretive Data Percent cell count reference ranges are not reported, since discordance with absolute values may lead to misinterpretation of CBC data. Current Interpretive Data was last revised on 2018. Testing performed by: [address] [address] Lymphocyte pct 27.3 % [facility] Comment: Interpretive Data Percent cell count reference ranges are not reported, since discordance with absolute values may lead to misinterpretation of CBC data. Current Interpretive Data was last revised on 2018. Testing performed by: [address] [address] Monocyte pct 9.4 % [facility] Comment: Interpretive Data Percent cell count reference ranges are not reported, since discordance with absolute values may lead to misinterpretation of CBC data. Current Interpretive Data was last revised on 2018. Testing performed by: [address] [address] Eosinophil pct 1.2 % [facility] Comment: Interpretive Data Percent cell count reference ranges are not reported, since discordance with absolute values may lead to misinterpretation of CBC data. Current Interpretive Data was last revised on 2018. Testing performed by: [address] [address] Basophil pct 0.2 % YEVGENIY TOM Comment: Interpretive Data Percent cell count reference ranges are not reported, since discordance with absolute values may lead to misinterpretation of CBC data. Current Interpretive Data was last revised on 2018. Testing performed by: [address] [address] Blood 12/31/2024 2:16 PM SAFETY OFFICER 12/31/2024 2:24 PM SAFETY OFFICER us Lesley DE LEON LAB BLOOD ORDERABLES Final Resu lt YEVGENIY [facility] Department [place] [address] * (ABNORMAL) CBC with auto differential (12/31/2024 2:16 PM SAFETY OFFICER) WBC 9.8 3.8 - 9.9 K/cumm Comment:Testing performed by : [address] [address] Hgb 12.8 11.9 - 15.5 g/dL YEVGENIY TOM Comment:Testing performed by : [address] [address] Hct 40.0 35.6 - 45.5 % YEVGENIY TOM Comment:Testing performed by : [address] [address] Plt 288 150 - 400 K/cumm YEVGENIY TOM Comment:Testing performed by : [address] [address] MPV 9.7 9.1 - 12.3 fL YEVGENIY TOM Comment:Testing performed by : [address] [address] RBC 4.74 3.90 - 5.20 M/cumm YEVGENIY TOM Comment:Testing performed by : [address] [address] MCV 84.4 81.3 - 96.4 fL YEVGENIY Comment:Testing performed by : [address] [address] MCH 27.0(L) 27.1 - 33.3 pg YEVGENIY TOM Comment:Testing performed by : [address] [address] MCHC 32.0(L) 32.3 - 35.7 g/dL YEVGENIY TOM Comment:Testing performed by : [address] [address] RDW CV 12.2 11.1 - 14.9 % YEVGENIY Comment:Testing performed by : [address] [address] RDW SD 36.9 35.7 - 48.1 fL YEVGENIY Comment:Testing performed by : [address] [address] NRBC abs 0.00 0.00 - 0.01 K/cumm YEVGENIY Comment:Testing performed by : [address] [address] Blood 12/31/2024 2:16 PM SAFETY OFFICER 12/31/2024 2:24 PM SAFETY OFFICER us Lesley DE LEON LAB BLOOD ORDERABLES Final Resu lt YEVGENIY [address] [facility] Department of Laboratories [place], [place] [id number] * (ABNORMAL) D-dimer, quantitative (12/31/2024 2:16 PM SAFETY OFFICER) D-Dimer 720(H) <=499 ng/mL FEU Comment: Interpretive [...] revised on 2019. Testing performed by: [address] [address] Blood 12/31/2024 2:16 PM SAFETY OFFICER 12/31/2024 2:24 PM SAFETY OFFICER us Lesley DE LEON LAB BLOOD ORDERABLES Final Resu lt YEVGENIY [address] Department [place] [address] * (ABNORMAL) Comprehensive metabolic panel (12/31/2024 2:16 PM SAFETY OFFICER) Sodium 137 135 - 145 mmol/L Comment:Testing performed by : [address] [address] Potassium, pl 4.1 3.3 - 4.9 mmol/L YEV[facility]Y Comment:Testing performed by : [address] [address] Chloride 103 97 - 110 mmol/L YEVGEN[facility]Y Comment:Testing performed by : [address] [address] CO2 24 22 - 32 mmol/L YEVGENIY Comment:Testing performed by : [address] [address] Anion gap 10 2 - 15 mmol/L YEVGEN[facility]Y Comment:Testing performed by : [address] [address] BUN 11 6 - 25 mg/dL YEVGENIY Comment:Testing performed by : [address] [address] Creatinine 0.57(L) 0.60 - 1.10 mg/dL YEVGENIY Comment:Testing performed by : [address] [address] Glucose 89 70 - 199 mg/dL YEVGENIY [...] last revised 2022. Testing performed by: [address] [address] Calcium 9.7 8.5 - 10.3 mg/dL YEVGENIY Comment:Testing performed by : [address] [address] Bilirubin, total 0.2 0.1 - 1.2 mg/dL YEVGENIY Comment:Testing performed by : [address] [address] Protein, pl 7.9 6.5 - 8.5 g/dL YEVGENIY Comment:Testing performed by : [address] [address] Albumin 4.4 3.5 - 5.0 g/dL YEVGENIY Comment:Testing performed by : [address] [address] Alk phos 89 40 - 130 Units/L YEVGENIY Comment:Testing performed by : [address] [address] ALT 21 7 - 45 Units/L YEV[facility]Y Comment:Testing performed by : [address] [address] AST 24 10 - 45 Units/L YEVGENIY Comment:Testing performed by : [address] [address] Blood 12/31/2024 2:16 PM SAFETY OFFICER 12/31/2024 2:24 PM SAFETY OFFICER Lesley DE LEON LAB BLOOD ORDERABLES Final Resu lt [facility] [address] [facility] [place] [address] from Last 3 Months Insurance [facility] Care Teams Shift Boss Relationship Specialty Start Date End Date Tammi Menon APRN [address] [place] [address] PCP - General Family Medicine 12/31/24
[2025-02-10 12:29] LABS: Basophils Percent Auto 0.4 % (0.2-1.2); Eosinophils Absolute Auto 0.2 K/mm3 (0-0.3); Eosinophils Percent Auto 1.9 % (0-4.4); Hematocrit 36.5 % (37.0-47.0); Hemoglobin 11.7 g/dL (12.0-15.0); Immature Granulocyte Absolute 0.04 K/mm3 (0.00-0.031); Immature Granulocyte Percent A 0.5 % (0-0.5); Lymphocytes Absolute Auto 1.65 K/mm3 (0.9-3.2); Lymphocytes Percent Auto 20.5 % (18.3-44.2); Mean Corpuscular HGB Conc 32.1 g/dl (32-36); Mean Corpuscular Hemoglobin 27.3 pg (26-34); Mean Corpuscular Volume 85.1 fl (80-100); Mean Platelet Volume 9.2 fl (7.4-10.4); Monocytes Percent Auto 11.9 % (2.6-8.5); Neutrophils Absolute Auto 5.2 K/mm3 (1.3-6.7); Neutrophils Percent Auto 64.8 % (45.5-73.1); Platelet Count Result 301 k/mm3 (150-375); Red Blood Count 4.29 M/mm3 (4.2-5.4); Red Cell Distribution Width 12.5 % (11.5-14.5); White Blood Count 8.1 K/mm3 (4.5-10.0)
[2025-02-10 12:41] LABS: Alanine Aminotransferase 19 U/L (6-35); Albumin Level 4.4 g/dL (3.5-5.1); Alkaline Phosphatase 62 U/L (38-126); Anion Gap 13 mmol/L (4-12); Aspartate Amino Transferase 29 U/L (14-36); Bilirubin,Total 0.2 mg/dL (0.2-1.3); Blood Urea Nitrogen 10 mg/dL (7-17); Calcium 8.9 mg/dL (8.4-10.2); Carbon Dioxide 23 mmol/L (22-30); Chloride 102 mmol/L (98-107); Estimated CRCL calculation 129 ml/min; Estimated Glomerular Filt Rate > 60; Glucose 94 mg/dL (65-110); Lipase 40 U/L (23-300); Potassium 3.7 mmol/L (3.4-5.0); Sodium 138 mmol/L (137-145)
[2025-02-10] MEDS: LACTATED RINGERS 1,000 ML 999 ML IV CONT (12:52)
[2025-02-10] MEDS: diphenhydrAMINE HCl INJ 50 MG/ML VIAL 25 MG IV PUSH (12:53)
[2025-02-10] MEDS: ONDANSETRON INJ 4 MG/2 ML VIAL IV PUSH (12:53)
[2025-02-10 12:57] VITALS: BP 110/72; PULSE 86; RESP 16; O2SAT 99
[2025-02-10 13:04] LABS: Influenza A QL RT-PCR Negative (Negative); Influenza B QL RT-PCR Negative (Negative); RSV RNA, RT-PCR Negative (Negative); SARS-CoV-2 RNA PCR Negative (Negative)
--- OUTSIDE RECORDS SUMMARY | 2025-02-10 13:18 | XMS_ITS | Encounter Summary ---
Author Organization [facility] Healthcare Address [address] [place] [address] Care Team Providers Care Sew Out Operator Name Role Phone Kera Flanagan NP Primary Care Provider [phone] Tammi Menon APRN Primary Care Provider Encounter Details Date Type Department Care Team (Late st Contact Info) Description 10/25/2023 Orders Only [facility] Home Care Services [address] [facility] [facility] [address] [facility] [address] [place] [address] Carli Whitaker, [facility] Social History Tobacco Use Types Packs/Day Years [...] on file Legal Sex Female 11:55 PM JEWELRY TECHNICIAN Gender Identity Not on file Sexual Orientation Not on file documented as of this encounter Plan of Treatment Not on file documented as of this encounter Visit Diagnoses Not on filedocumented in this encounter Additional Health Concerns Infection Onset Date Last Indicated Resolved Time COVID: Suspected 12/31/2024 12/31/2024 12/31/2024 3:10 PM JEWELRY TECHNICIAN documented as of this encounter Care Teams Sew Out Operator Relationship Specialty Start Date End Date Kera Flanagan, [place] PCP - General 05/30/22 12/30/24 Tammi Menon APRN [address] [place] [address] PCP - General Family Medicine 12/31/24 documented as of this encounter
--- OUTSIDE RECORDS SUMMARY | 2025-02-10 13:18 | XMS_ITS | Clinical Summary ---
Author Organization [facility] Address [address] [place] [address] Care Team Providers Care Cryogenic Transport Driver Name Role Phone Tammi Menon DOREEN Primary [...] have care with Dr. Ortega Denson in [place], [place]. Assessment & Plan (07/04/2019 7:48 PM CDT): - no plans to initiate care [place] - gave Rx for doxylamine/pyridoxine for nausea - encouraged smoking cessation; recommended she d/w Dr. Addison Denson when she establishes care Abdominal pain in 07/04/2019 Overview (07/04/2019): 07/04/2019: presented to [facility], r/o for acute process. Transfer to [facility] for dating confirmation. Reports no BM in [...] Department Care Team Description 12/31/2024 2:47 PM TELEVISION REPAIR TEACHER - 12/31/2024 5:34 PM TELEVISION REPAIR TEACHER [facility] Emergency Department [address] [place] [id number] Shortness of breath (Primary Dx) Discharge Disposition: [...] on file Legal Sex Female 11:55 PM TELEVISION REPAIR TEACHER Gender Identity Not on file Sexual Orientation [...] Comments Blood Pressure 101/69 12/31/2024 5:25 PM TELEVISION REPAIR TEACHER Pulse 77 12/31/2024 5:25 PM TELEVISION REPAIR TEACHER Temperature 37.1 C (98.7 F) 12/31/2024 2:09 PM TELEVISION REPAIR TEACHER Respiratory Rate 18 12/31/2024 5:25 PM TELEVISION REPAIR TEACHER Oxygen Saturation 100% 12/31/2024 5:25 PM TELEVISION REPAIR TEACHER Inhaled Oxygen Concentration - - Weight 72.7 kg (160 lb 4.4 oz) 12/31/2024 2:09 P M TELEVISION REPAIR TEACHER Height 165.1 cm (5' 5 ) 12/31/2024 2:09 PM TELEVISION REPAIR TEACHER Body Mass Index 26.67 12/31/2024 2:09 PM TELEVISION REPAIR TEACHER Plan of Treatment Health Maintenance Due Date [...] CHEST PE W CONTRAST ED 3:51 PM TELEVISION REPAIR TEACHER POCT HCG, URINE Routine 12/31/2024 3:19 PM TELEVISION REPAIR TEACHER XR CHEST PA LATERAL 2 VIEWS ED 12/31/2024 2:26 PM TELEVISION REPAIR TEACHER EGFR STAT 12/31/2024 2:16 PM TELEVISION REPAIR TEACHER DIFFERENTIAL AUTO STAT 12/31/2024 2:1 6 PM TELEVISION REPAIR TEACHER D-DIMER, QUANTITATIVE STAT 12/31/2024 2:16 PM TELEVISION REPAIR TEACHER COMPREHENSIVE METABOLIC PANEL STAT 12/31/2024 2:16 PM TELEVISION REPAIR TEACHER CBC WITH AUTO DIFFERENTIAL STAT 12/31/2024 2:16 PM TELEVISION REPAIR TEACHER INFLUENZA A/B, RSV, AND COVID-19 PCR STAT 12/31/2024 2:16 PM TELEVISION REPAIR TEACHER from Last 3 Months Results * CT Chest PE (CTA) W Contrast (12/31/2024 3:51 PM TELEVISION REPAIR TEACHER) Anatomical Region Laterality Modality Body N/A Computed Tomogra phy 12/31/2024 4:49 PM TELEVISION REPAIR TEACHER Narrative 12/31/2024 5:03 PM TELEVISION REPAIR TEACHER EXAM DESCRIPTION: CT CHEST PE (CTA) W [...] Quang Decker M.D. LC: GABRIEL Report ID: [id number] Reading Location: [place] [address] Procedure Note Yumiko Decker MD - 12/31/2024 [...] Quang Decker M.D. LC: GABRIEL Report ID: [id number] Reading Location: [place] [address] [address] [facility] IMG CT PROCEDURES Final Result * POCT hCG, urine (12/31/2024 3:19 PM TELEVISION REPAIR TEACHER) HCG, ur, POC Negative Negative Lot Number [id number] QC Backgroud Clear Acceptable QC Control Line Acceptable Urine 12/31/2024 3:19 PM TELEVISION REPAIR TEACHER us Lesley DE LEON POINT OF CARE TEST ORDERABLES F inal Result * XR Chest PA Lateral 2 Views (12/31/2024 2:26 PM TELEVISION REPAIR TEACHER) Anatomical Region Laterality Modality Body, Chest N/A Computed Radiogr aphy 12/31/2024 2:43 PM TELEVISION REPAIR TEACHER Narrative 12/31/2024 2:43 PM TELEVISION REPAIR TEACHER EXAM DESCRIPTION: XR CHEST PA LATERAL 2 [...] by Remberto Carney M.D. JR: Report ID: [id number] Reading Location: [id number] Procedure Note Remberto Carney MD - 12/31/2024 [...] by Remberto Carney M.D., JR: Report ID: [id number] Reading Location: [id number] Lesley DE LEON IM XR PROCEDURES Final Result * Influenza A/B, RSV, and COVID-19 PCR Nasopharyngeal (12/31/2024 2:16 PM TELEVISION REPAIR TEACHER) COVID-19 RNA Negative Negative Comment:Testing performed by : [facility], [address] [place] [address]., [address] Influenza A RNA Negative Negative YEVGENIY Comment:Testing performed by : [address] [address] Influenza B RNA Negative Negative YEVGENIY Comment:Testing performed by : [facility], [address] [place] [address]., [address] RSV RNA Negative Negative YEVGENIY Comment: Interpretive data: Testing performed by [facility]. This test is performed using the [employer] Xpert Xpress CoV-2/Flu/RSV plus assay. This is a multiplex, real-time reverse transcriptase PCR assay intended for the qualitative detection of nucleic acid from SARS-CoV-2, influenza A, influenza B, and respiratory syncytial virus. This assay has been cleared by the [place] Food and Drug administration. The performance characteristics have been verified by the [facility]. Results must be considered in the clinical context, and a negative result does not rule out infection. Interpretive Data last revised 2023 Testing performed by: [facility], [address] [place] [address]., [address] Nasopharyngeal 12/31/2024 2: 16 PM TELEVISION REPAIR TEACHER 12/31/2024 2:24 PM TELEVISION REPAIR TEACHER Narrative YEVGENIY - 12/31/2024 3:09 PM TELEVISION REPAIR TEACHER Is the Patient experiencing symptoms consistent with COVID?->Yes Lesley [facility] LAB MICROBIOLOGY - GENERAL JOSE CORONADO Final Result YEVGENIY [id number] [facility] Department [place] [address] * eGFR (12/31/2024 2:16 PM TELEVISION REPAIR TEACHER) Pathologist [facility] eGFR >90 >=60 mL/min/1. 73 m2 Comment: [...] was last reviewed 2021. Testing performed by: [address] [address] Blood 12/31/2024 2:16 PM TELEVISION REPAIR TEACHER 12/31/2024 2:24 PM TELEVISION REPAIR TEACHER us Lesley DE LEON LAB BLOOD ORDERABLES Final Resu lt YEVGENIY [address] [facility] [place] [address] * (ABNORMAL) Differential, auto (12/31/2024 2:16 PM TELEVISION REPAIR TEACHER) Neutrophil abs 6.0 1.5 - 6.5 K/cumm Comment:Testing performed by : [address] [address] Imm gran abs 0.0 0.0 - 0.1 K/cumm YEVGENIY Comment:Testing performed by : [address] [address] Lymphocyte abs 2.7 0.8 - 3.3 K/cumm YEVGENIY Comment:Testing performed by : [address] [address] Monocyte abs 0.9(H) 0.2 - 0.8 K/cumm YEVGENIY Comment:Testing performed by : [address] [address] Eosinophil abs 0.1 0.0 - 0.5 K/cumm YEVGENIY Comment:Testing performed by : [address] [address] Basophil abs 0.0 0.0 - 0.1 K/cumm YEVGENIY Comment:Testing performed by : [address] [address] Neutrophil pct 61.6 % YEVGENIY Comment: Interpretive Data Percent cell count reference ranges are not reported, since discordance with absolute values may lead to misinterpretation of CBC data. Current Interpretive Data was last revised on 2018. Testing performed by: [address] [address] Imm gran pct 0.3 % YEVGENIY Comment: Interpretive Data Percent cell count reference ranges are not reported, since discordance with absolute values may lead to misinterpretation of CBC data. Current Interpretive Data was last revised on 2018. Testing performed by: [address] [address] Lymphocyte pct 27.3 % [facility] Comment: Interpretive Data Percent cell count reference ranges are not reported, since discordance with absolute values may lead to misinterpretation of CBC data. Current Interpretive Data was last revised on 2018. Testing performed by: [address] [address] Monocyte pct 9.4 % [facility] Comment: Interpretive Data Percent cell count reference ranges are not reported, since discordance with absolute values may lead to misinterpretation of CBC data. Current Interpretive Data was last revised on 2018. Testing performed by: [address] [address] Eosinophil pct 1.2 % [facility] Comment: Interpretive Data Percent cell count reference ranges are not reported, since discordance with absolute values may lead to misinterpretation of CBC data. Current Interpretive Data was last revised on 2018. Testing performed by: [address] [address] Basophil pct 0.2 % [facility] Comment: Interpretive Data Percent cell count reference ranges are not reported, since discordance with absolute values may lead to misinterpretation of CBC data. Current Interpretive Data was last revised on 2018. Testing performed by: [address] [address] Blood 12/31/2024 2:16 PM TELEVISION REPAIR TEACHER 12/31/2024 2:24 PM TELEVISION REPAIR TEACHER Lesley DE LEON LAB BLOOD ORDERABLES Final Resu lt YEVGENIY [address] [facility] Department [place] [address] * (ABNORMAL) CBC with auto differential (12/31/2024 2:16 PM TELEVISION REPAIR TEACHER) WBC 9.8 3.8 - 9.9 K/cumm Comment:Testing performed by : [address] [address] Hgb 12.8 11.9 - 15.5 g/dL YEVGENIY Comment:Testing performed by : [address] [address] Hct 40.0 35.6 - 45.5 % YEVGENIY Comment:Testing performed by : [address] [address] Plt 288 150 - 400 K/cumm YEVGENIY Comment:Testing performed by : [address] [address] MPV 9.7 9.1 - 12.3 fL YEVGENIY Comment:Testing performed by : [address] [address] RBC 4.74 3.90 - 5.20 M/cumm YEVGENIY Comment:Testing performed by : [address] [address] MCV 84.4 81.3 - 96.4 fL YEVGENIY Comment:Testing performed by : [address] [address] MCH 27.0(L) 27.1 - 33.3 pg YEVGENIY Comment:Testing performed by : [address] [address] MCHC 32.0(L) 32.3 - 35.7 g/dL YEVGENIY Comment:Testing performed by : [address] [address] RDW CV 12.2 11.1 - 14.9 % YEVGENIY Comment:Testing performed by : [address] [address] RDW SD 36.9 35.7 - 48.1 fL YEVGENIY TOM Comment:Testing performed by : [facility], [address] [place] [address]., [address] NRBC abs 0.00 0.00 - 0.01 K/cumm YEVGENIY TOM Comment:Testing performed by : [facility], [address] [place] [address]., [address] Blood 12/31/2024 2:16 PM TELEVISION REPAIR TEACHER 12/31/2024 2:24 PM TELEVISION REPAIR TEACHER Lesley Ama DE LAB BLOOD ORDERABLES Final Resu lt Performing Organization Address [facility] Co de Phone Number YEVGENIY [address] [facility] [place] [address] * (ABNORMAL) D-dimer, quantitative (12/31/2024 2:16 PM TELEVISION REPAIR TEACHER) D-Dimer 720(H) <=499 ng/mL FEU Comment: Interpretive [...] last revised on 2019. Testing performed by: [address] [address] Blood 12/31/2024 2:16 PM TELEVISION REPAIR TEACHER 12/31/2024 2:24 PM TELEVISION REPAIR TEACHER LesleyTalentBin DE LAB BLOOD ORDERABLES Final Resu lt Performing Organization Address City/[facility]/ZIP Co de Phone Number YEVGENIY [address] [facility] [place] [place] [address] * (ABNORMAL) Comprehensive metabolic panel (12/31/2024 2:16 PM TELEVISION REPAIR TEACHER) Sodium 137 135 - 145 mmol/L Comment:Testing performed by : [address] [address] Potassium, pl 4.1 3.3 - 4.9 mmol/L [facility] Comment:Testing performed by : [address] [address] Chloride 103 97 - 110 mmol/L [facility] Comment:Testing performed by : [address], [place]., [address] CO2 24 22 - 32 mmol/L [facility] Comment:Testing performed by : [address] [address] Anion gap 10 2 - 15 mmol/L [facility] Comment:Testing performed by : [address] [address] BUN 11 6 - 25 mg/dL [facility] Comment:Testing performed by : [address] [address] Creatinine 0.57(L) 0.60 - 1.10 mg/dL [facility] Comment:Testing performed by : [address] [address] Glucose 89 70 - 199 mg/dL [facility] [...] was last revised 2022. Testing performed by: [address] [address] Calcium 9.7 8.5 - 10.3 mg/dL [facility] Comment:Testing performed by : [address] [address] Bilirubin, total 0.2 0.1 - 1.2 mg/dL YEVGENIY Comment:Testing performed by : [address] [address] Protein, pl 7.9 6.5 - 8.5 g/dL YEVGENIY Comment:Testing performed by : [address] [address] Albumin 4.4 3.5 - 5.0 g/dL YEVGENIY Comment:Testing performed by : [address] [address] Alk phos 89 40 - 130 Units/L YEVGENIY Comment:Testing performed by : [address] [address] ALT 21 7 - 45 Units/L YEVGENIY Comment:Testing performed by : [address] [address] AST 24 10 - 45 Units/L YEVGENIY Comment:Testing performed by : [address] [address] Blood 12/31/2024 2:16 PM TELEVISION REPAIR TEACHER 12/31/2024 2:24 PM TELEVISION REPAIR TEACHER Lesley DE LEON LAB BLOOD ORDERABLES Final Resu lt YEVGENIY [address] [facility] [place] [address] from Last 3 Months Insurance [facility] Care Teams Cryogenic Transport Driver Relationship Specialty Start Date End Date Lynsey Tammi Sanchez, [employer] SUPERINTENDENT [id number] Pediatric Emerg. Dept. [place] [id number] PCP - General Family Medicine 12/31/24
--- OUTSIDE RECORDS SUMMARY | 2025-02-10 13:18 | XMS_ITS | Referral Summary ---
Author Organization [facility] Address [address] [place] [address] Care Team Providers Care Manifold Builder Name Role Phone Tammi Menon DOREEN Primary Care Provider Encounters Date Type Department Care Team Description 12/31/2024 2:47 PM DATA PROCESSING CONTROL CLERK - 12/31/2024 5:[address] [facility] Emergency Department [facility] [place] [address] Shortness of breath (Primary Dx) [...] have care with Dr. Ortega Denson in [place], [place]. Assessment & Plan (07/04/2019 7:48 PM CDT): - no plans to initiate care in [facility] - gave Rx for doxylamine/pyridoxine for nausea - encouraged smoking cessation; recommended she d/w Dr. Addison Denson when she establishes care Abdominal pain in 07/04/2019 Overview (07/04/2019): 07/04/2019: presented to [facility], r/o for acute process. Transfer to [facility] for dating confirmation. Reports no BM in [...] on file Legal Sex Female 11:55 PM DATA PROCESSING CONTROL CLERK Gender Identity Not on file Sexual Orientation Not on file Last Filed Vital Signs Vital Sign Reading Time Taken Comments Blood Pressure 101/69 12/31/2024 5:25 PM DATA PROCESSING CONTROL CLERK Pulse 77 12/31/2024 5:25 PM DATA PROCESSING CONTROL CLERK Temperature 37.1 C (98.7 F) 12/31/2024 2:09 PM DATA PROCESSING CONTROL CLERK Respiratory Rate 18 12/31/2024 5:25 PM DATA PROCESSING CONTROL CLERK Oxygen Saturation 100% 12/31/2024 5:25 PM DATA PROCESSING CONTROL CLERK Inhaled Oxygen Concentration - - Weight 72.7 kg (160 lb 4.4 oz) 12/31/2024 2:09 P M DATA PROCESSING CONTROL CLERK Height 165.1 cm (5' 5 ) 12/31/2024 2:09 PM DATA PROCESSING CONTROL CLERK Body Mass Index 26.67 12/31/2024 2:09 PM DATA PROCESSING CONTROL CLERK Plan of Treatment Not on file Procedures Procedure Name Priority Date/Time Associated Diagnosis Comments CT CHEST PE W CONTRAST ED 3:51 PM DATA PROCESSING CONTROL CLERK POCT HCG, URINE Routine 12/31/2024 3:19 PM DATA PROCESSING CONTROL CLERK XR CHEST PA LATERAL 2 VIEWS ED 12/31/2024 2:26 PM DATA PROCESSING CONTROL CLERK EGFR STAT 12/31/2024 2:16 PM DATA PROCESSING CONTROL CLERK DIFFERENTIAL AUTO STAT 12/31/2024 2:1 6 PM DATA PROCESSING CONTROL CLERK D-DIMER, QUANTITATIVE STAT 12/31/2024 2:16 PM DATA PROCESSING CONTROL CLERK COMPREHENSIVE METABOLIC PANEL STAT 12/31/2024 2:16 PM DATA PROCESSING CONTROL CLERK CBC WITH AUTO DIFFERENTIAL STAT 12/31/2024 2:16 PM DATA PROCESSING CONTROL CLERK INFLUENZA A/B, RSV, AND COVID-19 PCR STAT 12/31/2024 2:16 PM DATA PROCESSING CONTROL CLERK from Last 3 Months Results * CT Chest PE (CTA) W Contrast (12/31/2024 3:51 PM DATA PROCESSING CONTROL CLERK) Anatomical Region Laterality Modality Body N/A Computed Tomogra phy 12/31/2024 4:49 PM DATA PROCESSING CONTROL CLERK Narrative 12/31/2024 5:03 PM DATA PROCESSING CONTROL CLERK EXAM DESCRIPTION: CT CHEST PE (CTA) W [...] Quang Decker M.D. LC: GABRIEL Report ID: [id number] Reading Location: [id number] Procedure Note Yumiko Decker MD - 12/31/2024 [...] Quang Decker M.D. LC: GABRIEL Report ID: [id number] Reading Location: [place] [address] Les[facility] CT PROCEDURES Final Result * POCT hCG, urine (12/31/2024 3:19 PM DATA PROCESSING CONTROL CLERK) HCG, ur, POC Negative Negative Lot Number [id number] QC Backgroud Clear Acceptable QC Control Line Acceptable Urine 12/31/2024 3:19 PM DATA PROCESSING CONTROL CLERK Lesley DE LEON POINT OF CARE TEST ORDERABLES F inal Result * XR Chest PA Lateral 2 Views (12/31/2024 2:26 PM DATA PROCESSING CONTROL CLERK) Anatomical Region Laterality Modality Body, Chest N/A Computed Radiogr aphy 12/31/2024 2:43 PM DATA PROCESSING CONTROL CLERK Narrative 12/31/2024 2:43 PM DATA PROCESSING CONTROL CLERK EXAM DESCRIPTION: XR CHEST PA LATERAL 2 [...] by Remberto Carney M.D. JR: Report ID: [id number] Reading Location: [id number] Procedure Note Remberto Carney MD - 12/31/2024 [...] by Remberto Carney M.D. JR: Report ID: [id number] Reading Location: [place] [address] us Lesley DE LEON IMG XR PROCEDURES Final Result * Influenza A/B, RSV, and COVID-19 PCR Nasopharyngeal (12/31/2024 2:16 PM DATA PROCESSING CONTROL CLERK) Pathologist [facility] COVID-19 RNA Negative Negative Comment:Testing performed by : [address], [address] Influenza A RNA Negative Negative [facility] Comment:Testing performed by : [address] [address] Influenza B RNA Negative Negative [facility] Comment:Testing performed by : [address], [address] RSV RNA Negative Negative [facility] Comment: Interpretive data: Testing performed by [facility]. This test is performed using the [employer] Xpert Xpress CoV-2/Flu/RSV plus assay. This is a multiplex, real-time reverse transcriptase PCR assay intended for the qualitative detection of nucleic acid from SARS-CoV-2, influenza A, influenza B, and respiratory syncytial virus. This assay has been cleared by the [place] Food and Drug administration. The performance characteristics have been verified by the [facility]. Results must be considered in the clinical context, and a negative result does not rule out infection. Interpretive Data last revised 2023 Testing performed by: [address] [address] Nasopharyngeal 12/31/2024 2: 16 PM DATA PROCESSING CONTROL CLERK 12/31/2024 2:24 PM DATA PROCESSING CONTROL CLERK Narrative YEVGENIY - 12/31/2024 3:09 PM DATA PROCESSING CONTROL CLERK Is the Patient experiencing symptoms consistent with COVID?->Yes us Lesley DE LEON LAB MICROBIOLOGY - GENERAL ORDE RABLES Final Result Performing Organization Address City/State/[facility] de Phone Number YEVGENIY [facility] Department [place] [address] * eGFR (12/31/2024 2:16 PM DATA PROCESSING CONTROL CLERK) Pathologist [facility] eGFR >90 >=60 mL/min/1. 73 m2 Comment: [...] last reviewed 2021. Testing performed by: [address] [address] Blood 12/31/2024 2:16 PM DATA PROCESSING CONTROL CLERK 12/31/2024 2:24 PM DATA PROCESSING CONTROL CLERK us Lesley DE LEON LAB BLOOD ORDERABLES Final Resu lt Performing Organization Address [facility] Co de Phone Number YEVGENIY [facility] Department [place] [address] * (ABNORMAL) Differential, auto (12/31/2024 2:16 PM DATA PROCESSING CONTROL CLERK) Pathologist [facility] Neutrophil abs 6.0 1.5 - 6.5 K/cumm Comment:Testing performed by : [address] [address] Imm gran abs 0.0 0.0 - 0.1 K/cumm YEVGENIY Comment:Testing performed by : [address] [address] Lymphocyte abs 2.7 0.8 - 3.3 K/cumm [facility] Comment:Testing performed by : [address], [place]., [address] Monocyte abs 0.9(H) 0.2 - 0.8 K/cumm [facility] Comment:Testing performed by : [address], [place]., [address] Eosinophil abs 0.1 0.0 - 0.5 K/cumm [facility] Comment:Testing performed by : [address], [place]., [address] Basophil abs 0.0 0.0 - 0.1 K/cumm [facility] Comment:Testing performed by : [address] [address] Neutrophil pct 61.6 % [facility] Comment: Interpretive Data Percent cell count reference ranges are not reported, since discordance with absolute values may lead to misinterpretation of CBC data. Current Interpretive Data was last revised on 2018. Testing performed by: [address] [address] Imm gran pct 0.3 % [facility] Comment: Interpretive Data Percent cell count reference ranges are not reported, since discordance with absolute values may lead to misinterpretation of CBC data. Current Interpretive Data was last revised on 2018. Testing performed by: [address] [address] Lymphocyte pct 27.3 % [facility] Comment: Interpretive Data Percent cell count reference ranges are not reported, since discordance with absolute values may lead to misinterpretation of CBC data. Current Interpretive Data was last revised on 2018. Testing performed by: [address] [address] Monocyte pct 9.4 % [facility] Comment: Interpretive Data Percent cell count reference ranges are not reported, since discordance with absolute values may lead to misinterpretation of CBC data. Current Interpretive Data was last revised on 2018. Testing performed by: [address] [address] Eosinophil pct 1.2 % [facility] Comment: Interpretive Data Percent cell count reference ranges are not reported, since discordance with absolute values may lead to misinterpretation of CBC data. Current Interpretive Data was last revised on 2018. Testing performed by: [address] [address] Basophil pct 0.2 % YEVGENIY [facility] Comment: Interpretive Data Percent cell count reference ranges are not reported, since discordance with absolute values may lead to misinterpretation of CBC data. Current Interpretive Data was last revised on 2018. Testing performed by: [address] [address] Blood 12/31/2024 2:16 PM DATA PROCESSING CONTROL CLERK 12/31/2024 2:24 PM DATA PROCESSING CONTROL CLERK us Lesley DE [facility] LAB BLOOD ORDERABLES Final Resu lt [facility] Department [place] [address] * (ABNORMAL) CBC with auto differential (12/31/2024 2:16 PM DATA PROCESSING CONTROL CLERK) WBC 9.8 3.8 - 9.9 K/cumm Comment:Testing performed by : [address] [address] Hgb 12.8 11.9 - 15.5 g/dL YEVGEN[facility]Y [facility]OM Comment:Testing performed by : [address] [address] Hct 40.0 35.6 - 45.5 % [facility]EV[facility] Comment:Testing performed by : [address] [address] Plt 288 150 - 400 K/cumm [facility]EV[facility]Y [facility]OM Comment:Testing performed by : [address] [address] MPV 9.7 9.1 - 12.3 fL [facility]EV[facility]OM Comment:Testing performed by : [address] [address] RBC 4.74 3.90 - 5.20 M/cumm YEVGENIY [facility]OM Comment:Testing performed by : [address] [address] MCV 84.4 81.3 - 96.4 fL YEVGENIY Comment:Testing performed by : [address] [address] MCH 27.0(L) 27.1 - 33.3 pg YEVGENIY TOM Comment:Testing performed by : [address] [address] MCHC 32.0(L) 32.3 - 35.7 g/dL YEVGENIY TOM Comment:Testing performed by : [address] [address] RDW CV 12.2 11.1 - 14.9 % YEVGENIY Comment:Testing performed by : [address] [address] RDW SD 36.9 35.7 - 48.1 fL YEVGENIY Comment:Testing performed by : [address] [address] NRBC abs 0.00 0.00 - 0.01 K/cumm YEVGENIY Comment:Testing performed by : [address] [address] Blood 12/31/2024 2:16 PM DATA PROCESSING CONTROL CLERK 12/31/2024 2:24 PM DATA PROCESSING CONTROL CLERK us Lesley DE LEON LAB BLOOD ORDERABLES Final Resu lt YEVGENIY [address] [facility] Department of Laboratories [place], [place] [id number] * (ABNORMAL) D-dimer, quantitative (12/31/2024 2:16 PM DATA PROCESSING CONTROL CLERK) D-Dimer 720(H) <=499 ng/mL FEU Comment: Interpretive [...] revised on 2019. Testing performed by: [address] [address] Blood 12/31/2024 2:16 PM DATA PROCESSING CONTROL CLERK 12/31/2024 2:24 PM DATA PROCESSING CONTROL CLERK us Lesley DE LEON LAB BLOOD ORDERABLES Final Resu lt YEVGENIY [address] [place] [address] * (ABNORMAL) Comprehensive metabolic panel (12/31/2024 2:16 PM DATA PROCESSING CONTROL CLERK) Sodium 137 135 - 145 mmol/L Comment:Testing performed by : [address] [address] Potassium, pl 4.1 3.3 - 4.9 mmol/L YEVGENIY Comment:Testing performed by : [address] [address] Chloride 103 97 - 110 mmol/L YEVGENIY Comment:Testing performed by : [address] [address] CO2 24 22 - 32 mmol/L YEVGENIY Comment:Testing performed by : [address] [address] Anion gap 10 2 - 15 mmol/L YEVGENIY Comment:Testing performed by : [address] [address] BUN 11 6 - 25 mg/dL YEVGENIY Comment:Testing performed by : [address] [address] Creatinine 0.57(L) 0.60 - 1.10 mg/dL YEVGENIY Comment:Testing performed by : [address] [address] Glucose 89 70 - 199 mg/dL YEVGENIY [...] last revised 2022. Testing performed by: [address] [address] Calcium 9.7 8.5 - 10.3 mg/dL YEVGENIY Comment:Testing performed by : [address] [address] Bilirubin, total 0.2 0.1 - 1.2 mg/dL YEVGENIY Comment:Testing performed by : [address] [address] Protein, pl 7.9 6.5 - 8.5 g/dL YEVGENIY Comment:Testing performed by : [address] [address] Albumin 4.4 3.5 - 5.0 g/dL YEVGENIY Comment:Testing performed by : [address] [address] Alk phos 89 40 - 130 Units/L YEVGENIY Comment:Testing performed by : [address] [address] ALT 21 7 - 45 Units/L YEVGENIY Comment:Testing performed by : [address] [address] AST 24 10 - 45 Units/L YEVGENIY Comment:Testing performed by : [address] [address] Blood 12/31/2024 2:16 PM DATA PROCESSING CONTROL CLERK 12/31/2024 2:24 PM DATA PROCESSING CONTROL CLERK Lesley DE LEON LAB BLOOD ORDERABLES Final Resu lt [facility] [address] [facility] [place] [address] from Last 3 Months Insurance [facility] Care Teams Manifold Builder Relationship Specialty Start Date End Date Tammi Menon APRN [address] [place] [address] PCP - General Family Medicine 12/31/24
--- OUTSIDE RECORDS SUMMARY | 2025-02-10 13:18 | XMS_ITS | Clinical Summary ---
Author Organization [facility] Address [address] [place] [address] Care Team Providers Care Hotbed Operator Name Role Phone Steph Hightower MD Unavailable [...] Active Problems Problem Noted Date Diagnosed Date ([facility]) 05/13/2024 Headache 05/13/2024 Estimated Date of Delivery Comme nts Yes 09/17/2025 Encounters Date Type Department Care Team Description 02/10/2025 9:44 AM CDT - 02/10/2025 10:15 AM CDT [facility] [address] [place] [address] [place] [address] Kaitlin Colon MD Vomiting Discharge Disposition: Left Against Medical Advice 02/10/2025 Travel 01/24/2025 12:23 PM CDT - 01/24/2025 2:54 PM CDT [facility] [address] [place] [address] [place] [address] Salty Potts MD Vomiting ; Palpitations Discharge Disposition: Home or Self Care (Routine Discharge) 01/24/2025 Travel 01/21/2025 Telephone [facility] [address] [place] [address] Steph Hightower MD Stress Test 01/21/2025 Scan [facility] [address] [place] [address] Scanned, Doc Pccl Stress Test (SCAN) 01/18/2025 8:06 AM CDT - 01/18/2025 11:59 PM CDT Hospital Encounter [facility] [address] [place] [address] [place] [address] Sami Mehta, Discharge Disposition: Home or Self Care (Routine Discharge) 01/17/2025 3:47 PM CDT - 01/17/2025 9:05 PM CDT [facility] [address] [place], [place] [address] [address] Sami Mehta, DO Leg Pain Discharge Disposition: Home or Self Care (Routine Discharge) 01/17/2025 Travel 01/14/2025 1:05 PM CDT - 01/14/2025 11:59 PM CDT [facility] [place] [place] [address] Shawn Mcginnis MD Discharge Disposition: Home or Self Care (Routine Discharge) 01/14/2025 Orders Only [address] [place] [address] Shawn Mcginnis MD 01/13/2025 2:01 PM CDT - 01/13/2025 6:59 PM CDT [facility] [address] [place] [address] [place] [address] Kaitlin Colon MD Complications Discharge Disposition: Home or Self Care (Routine Discharge) 01/13/2025 Travel 12/01/2024 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 - Occupational Stress Questionnaire Answer Date Recorded [...] Health Maintenance Due Date Last Done Comments Annual Physical 2002 Hepatitis C 2017 HPV Vaccines (2 - 3-dose series) 02/02/2017 01/05/2017 DTaP, Tdap and Td Vaccines (7 - Td or Tdap) 06/21/2022 06/21/2012, 06/29/2004, 08/30/2000, Additional history exists COVID-19 Vaccine ( - season) 2024 RSV Immunization or 60+ Years (1 - Risk 1-dose series) 07/23/2025 Cervical Cancer Screening Pap Smear (Age 21 to 29) Every 3 Years 01/28/2028 01/27/2025, 01/27/2025, 01/27/2025 Cervical Cancer Screening 01/28/2028 Hepatitis B Vaccines Completed 07/29/2000, 04/18/2000, 1999, [...] CDT Amenorrhea Encounter for test, result positive ([facility]) US OB TRANSVAG STAT 01/13/2025 6:37 PM [...] A & B STAT 12/01/2024 7:50 PM FARM IMPLEMENT MECHANIC CORONAVIRUS (COVID-19) ANTIGEN STAT 12/01/2024 7:50 PM FARM IMPLEMENT MECHANIC from Last 3 Months Results * CORONAVIRUS (COVID-19) ANTIGEN (02/10/2025 9:53 AM CDT) Only the most recent of2 resultswithin the time period is included. CORONAVIRUS ANTIGEN IA NEGATIVE NEGATIVE 02/10/2025 10:41 AM CDT [facility] Comment: NEGATIVE RESULTS DO NOT [...] SPECIMEN TYPE NASAL 02/10/2025 9:56 AM CDT [facility] NASAL NASAL STRUCTURE / Unknown 02/10/2025 9:53 AM CDT us Kaitlin Colon MD MICROBIOLOGY - GENERAL JOSE CORONADO Final Result [facility] [address] [place] [address], * INFLUENZA A & B (02/10/2025 9:53 AM CDT) Only the most recent of2 resultswithin the time period is included. SPECIMEN TYPE (INFLUENZA) NASOPHARYNGEAL SWAB 02/10/2025 9:56 AM CDT [facility] INFLUENZA A NEGATIVE NEGATIVE 02/10/2025 10:41 AM CDT [facility] INFLUENZA B NEGATIVE NEGATIVE 02/10/2025 10:41 AM CDT [facility] Comment: A NEGATIVE RESULT DOES NOT EXCLUDE INFLUENZA VIRUS INFECTION. IF INFLUENZA IS CIRCULATING IN YOUR COMMUNITY, A DIAGNOSIS OF INFLUENZA SHOULD BE CONSIDERED BASED ON A PATIENT'S CLINICAL PRESENTATION AND EMPIRIC ANTIVIRAL TREATMENT SHOULD BE CONSIDERED IF INDICATED. NASOPHARYNGEAL SWAB / Unknown 02/10/2025 9:53 AM CDT Kaitlin Colon MD MICROBIOLOGY - GENERAL JOSE CORONADO Final Result [address] [address], [place] [phone] * (ABNORMAL) STREP A RAPID (02/10/2025 9:53 AM CDT) SPECIMEN SOURCE THROAT 02/10/2025 9:56 AM CDT [facility] RAPID STREP TEST POSITIVE(A) NEGATIVE 02/10/2025 10:38 AM CDT [facility] Comment: CALLED TO MATHEW DUFFY 103 02/10/25 AFW READ BACK AND VERIFIED STRUCTURE OF ANTERIOR PORTION OF NECK / Unknown 02/10/2025 9:53 AM CDT Kaitlin Colon MD MICROBIOLOGY - GENERAL JOSE CORONADO Final Result [facility] [address] [place] [address], [place] [phone] * XR CHEST PORTABLE (01/24/2025 1:48 PM CDT) Anatomical Region Laterality Modality Chest Radiographic Jazmin ging 01/24/2025 1:50 PM CDT Impressions 01/24/2025 1:51 PM CDT IMPRESSION: No significant change. No acute disease. Referred By: Interpreted By: Paulino Mitchell MD, 01/24/2025 1:50 PM Narrative 01/24/2025 1:[address] [place] [address] Examination: Portable chest. Exam time: 1342 hours. Clinical history: Left-sided chest pain. Palpitations. Comparison: 05/18/2023. Technique: AP upright view. Findings: The cardiomediastinal silhouette is stable. The heart remains within normal limits for size. Pulmonary vascularity is within normal limits. The lungs and pleural spaces remain free of any active process. The visualized bony thorax is unremarkable. Procedure Note Paulino Mitchell MD - 01/24/[address] [place] [address] Examination: Portable chest. Exam time: 1342 hours. [...] COLOR (U) YELLOW 01/24/2025 1:57 PM CDT [facility] TRANSPARENCY CLEAR 01/24/2025 1:57 PM CDT [facility] SPECIFIC GRAVITY (U) 1.030(H) 1.000 - 1.025 01/24/2025 1:57 PM CDT [facility] Comment:EQUAL TO OR GREATER THAN U PH 6.0 5.0 - 8.0 01/24/2025 1:57 PM CDT [facility] LEUKOCYTES (U) NEGATIVE NEGATIVE 01/24/2025 1:57 PM CDT [facility] NITRITES NEGATIVE NEGATIVE 01/24/2025 1:57 PM CDT [facility] PROTEIN RANDOM (U) NEGATIVE NEGATIVE 01/24/2025 1:57 PM CDT [facility] GLUCOSE (U) NEGATIVE NEGATIVE 01/24/2025 1:57 PM CDT [facility] KETONES MG/DL (U) NEGATIVE NEGATIVE 01/24/2025 1:57 PM CDT [facility] UROBILINOGEN 0.2 <1.0 EU/DL 01/24/2025 1:57 PM CDT [facility] BILIRUBIN (U) NEGATIVE NEGATIVE 01/24/2025 1:57 PM CDT [facility] BLOOD (U) NEGATIVE NEGATIVE 01/24/2025 1:57 PM CDT [facility] WBC/HPF 5-10(A) 0 - 5 /HPF 01/24/2025 1:57 PM CDT [facility] RBC/HPF 0-5 0 - 5 /HPF 01/24/2025 1:57 PM CDT [facility] EPI/LPF MANY /LPF 01/24/2025 1:57 PM CDT [facility] BACTERIA (U) 3+ /HPF 01/24/2025 1:57 PM CDT [facility] MUCUS PRESENT 01/24/2025 1:57 PM CDT [facility] URINE SPECIMEN OBTAINED BY CLEAN CATCH PROCEDURE / Unknown 01/24/2025 1:20 PM CDT us Salty Potts MD URINE ORDERABLES Final Resu lt [facility] [address] [place] [address], * TEST URINE (01/24/2025 1:20 PM CDT) URINE HCG TEST POSITIVE 01/24/2025 1:30 PM CDT [facility] SPECIFIC GRAVITY >1.030 01/24/2025 1:30 PM CDT [facility] URINE SPECIMEN FROM URETHRA / Unknown 01/24/2025 1:20 PM CDT Salty Potts MD URINE ORDERABLES Final Resu lt [facility] [address] [place] [address], * (ABNORMAL) COMPREHENSIVE METABOLIC PANEL (01/24/2025 1:06 PM CDT) Only the most recent of2 resultswithin the time period is included. Pathologist [facility] SODIUM S/P/B 136 136 - 145 MMOL/L 01/24/2025 1:34 PM CDT [facility] POTASSIUM S/P/B 3.6 3.5 - 5.1 MMOL/L 01/24/2025 1:34 PM CDT [facility] CHLORIDE S/P/B 102 98 - 107 MMOL/L 01/24/2025 1:34 PM CDT [facility] CO2 28.3 21.0 - 32.0 MMOL/L 01/24/2025 1:34 PM CDT [facility] GLUCOSE 113(H) 70 - 99 MG/DL 01/24/2025 1:34 PM CDT [facility] Comment: FASTING GLUCOSE 100 TO 125 MG/DL IS CONSISTENT WITH IMPAIRED FASTING GLUCOSE. FASTING GLUCOSE >125 MG/DL IS CONSISTENT WITH DIABETES. RANDOM GLUCOSE >200 MG/DL WITH HYPERGLYCEMIC SYMPTOMS IS CONSISTENT WITH DIABETES. PER ADA GUIDELINES BUN 12 6 - 24 MG/DL 01/24/2025 1:34 PM CDT [facility] CREATININE S/P/B 0.64 0.55 - 1.02 MG/DL 01/24/2025 1:34 PM CDT [facility] CALCIUM S/P/B 9.0 8.4 - 10.5 MG/DL 01/24/2025 1:34 PM [facility] BILIRUBIN TOTAL S/P/B 0.2 0.2 - 1.0 MG/DL 01/24/2025 1:34 PM [facility] Comment: THIS ASSAY IS NOT RECOMMENDED FOR PATIENTS UNDERGOING TREATMENT WITH ELTROMBOPAG DUE TO THE POTENTIAL FOR FALSELY ELEVATED RESULTS. ALKALINE PHOSPHATASE S/P/B 80 37 - 98 U/L 01/24/2025 1:34 PM [facility] AST 13(L) 15 - 37 U/L 01/24/2025 1:34 PM [facility] ALT 26 14 - 59 U/L 01/24/2025 1:34 PM [facility] TOTAL PROTEIN S/P/B 7.4 6.4 - 8.2 G/DL 01/24/2025 1:34 PM [facility] ALBUMIN S/P/B 3.5 3.4 - 5.0 G/DL 01/24/2025 1:34 PM [facility] ANION GAP 5.7 5.0 - 15.0 MMOL/L 01/24/2025 1:34 PM [facility] OSMOLALITY (CALC) 283 MOSM/KG 025 1:34 PM [facility] Comment:REFERENCE RANGE NOT ESTABLISHED GFR ESTIMATE >90 >89 ML/MIN/1. 73 M2 01/24/2025 1:34 PM [facility] GFR NOTES GFR REFERENCE S: 01/24/2025 1:34 PM [facility] Comment: THE ESTIMATED GFR IS [...] Salty Potts MD LABORATORY Final Resul t [facility] [address] [place] [address], * CBC W/DIFF AUTOMATED (01/24/2025 1:06 PM CDT) Only the most recent of3 resultswithin the time period is included. WBC 10.23 4.00 - 10.80 x10'3/uL 01/24/2025 1:38 PM CDT [facility] RBC 4.38 4.10 - 5.40 x10'6/uL 01/24/2025 1:38 PM CDT [facility] HGB 12.0 12.0 - 16.0 G/DL 01/24/2025 1:38 PM CDT [facility] HCT 36.1 36.0 - 47.0 % 01/24/2025 1:38 PM CDT [facility] MCV 82.4 78.0 - 100.0 FL 01/24/2025 1:38 PM CDT [facility] MCH 27.4 27.0 - 31.0 PG 01/24/2025 1:38 PM CDT [facility] MCHC 33.2 33.0 - 36.0 G/DL 01/24/2025 1:38 PM CDT [facility] RDW 12.2 11.5 - 14.5 % 01/24/2025 1:38 PM CDT [facility] PLT 325 150 - 350 x10'3/uL 01/24/2025 1:38 PM CDT [facility] MPV 9.3 7.4 - 10.4 FL 01/24/2025 1:38 PM CDT [facility] CBC COMMENT NORMAL REFERENCE RANGE NOT ESTABLISHED FOR THE PROPORTIONAL LEUKOCYTE DIFFERENTIAL. 01/24/2025 1:38 PM CDT [facility] NEUTROPHILS % 69.9 % 01/24/2025 1:38 PM CDT [facility] LYMPHOCYTES % 19.6 % 01/24/2025 1:38 PM CDT [facility] MONOCYTES % 8.9 % 01/24/2025 1:38 PM CDT [facility] EOSINOPHILS % 1.1 % 01/24/2025 1:38 PM CDT [facility] BASOPHILS % 0.2 % 01/24/2025 1:38 PM CDT [facility] IMMATURE GRANS % 0.3 % 01/25/20 1:38 PM CDT [facility] NRBC % 0.0 % 01/24/2025 1:38 PM CDT [facility] ABS. NEUTROPHILS 7.15 1.60 - 8.30 x10'3/uL 01/24/2025 1:38 PM CDT [facility] ABS. LYMPHOCYTES 2.01 0.80 - 4.70 x10'3/uL 01/24/2025 1:38 PM CDT [facility] ABS. MONOCYTES 0.91 0.00 - 1.50 x10'3/uL 01/24/2025 1:38 PM CDT [facility] ABS. EOSINOPHILS 0.11 0.00 - 0.40 x10'3/uL 01/24/2025 1:38 PM CDT [facility] ABS. BASOPHILS 0.02 0.00 - 0.20 x10'3/uL 01/24/2025 1:38 PM CDT [facility] ABS. IMMATURE GRANULOCYTES 0.03 0.00 - 0.03 x10'3/uL 01/24/2025 1:38 PM CDT [facility] ABS. NUCLEATED RBC'S 0.00 0.00 - 0.01 x10'3/uL 01/24/2025 1:38 PM CDT [facility] 01/24/2025 1:06 PM CDT Salty Potts MD LABORATORY Final Resul t Performing Organization Address [facility] de Phone Number [facility] [address] [place] [id number], * TROPONIN, QUANT (01/24/2025 1:06 PM CDT) Only the most recent of3 resultswithin the time period is included. TROPONIN I HIGH SENSITIVITY 4 0 - 51 ng/L 01/24/2025 1:34 PM CDT [facility] 01/24/2025 1:06 PM CDT Salty Potts MD LABORATORY Final Resul t Performing Organization Address [facility] de Phone Number [facility] [address] [place] [place] [address], * LIPASE (01/24/2025 1:06 PM CDT) LIPASE 25 16 - 77 UNITS/L 01/24/2025 1:34 PM CDT [facility] 01/24/2025 1:06 PM CDT Salty Potts MD LABORATORY Final Resul t Performing Organization Address [facility] de Phone Number [facility] [address] [place] [phone], * ECG 12 lead (01/24/2025 12:48 PM CDT) Only the most recent of2 resultswithin the time period is included. 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 Co de Phone Number [facility] * STRESS TEST (01/21/2025) us Doc Pccl Scanned SCANNING Final Result Performing Organization Address [facility] de Phone Number [facility] ONBASE * USV AKOSUA DUPLEX LOW EXT ADAM (01/18/2025 8:57 AM CDT) Anatomical Region Laterality Modality Extremity Ultrasound 01/18/2025 9:23 AM CDT Impressions 01/18/2025 9:24 AM CDT IMPRESSION: No evidence of deep venous thrombosis. Ordered By: SAMI MEHTA Interpreted By: Paulino Mitchell MD, 01/18/2025 9:23 AM Narrative 01/18/2025 9:24 AM CDT [address] [place] [address] Examination: Bilateral lower extremity venous color Doppler [...] Procedure Note Paulino Mitchell MD - 01/18/[address] [place] [address] Examination: Bilateral lower extremity venous color Doppler [...] 9:23 AM us Sami Mehta DO US VAS Final Result * CTA CHEST PE PROTOCOL (01/17/2025 7:29 PM CDT) Anatomical Region Laterality Modality Chest Computed Tomogra phy 01/17/2025 7:32 PM CDT Impressions 01/17/2025 7:34 PM CDT IMPRESSION: 1. No evidence of pulmonary embolism. No acute findings. Ordered By: SAMI MEHTA Interpreted By: German Chang MD, 01/17/2025 7:32 PM Narrative 01/17/2025 7:34 PM [address] [place] [address] CTA CHEST WITH CONTRAST PULMONARY EMBOLISM PROTOCOL [...] Procedure Note German Chang MD - 01/17/2025 [place] [id number] [facility] [place] [address] CTA CHEST WITH CONTRAST PULMONARY EMBOLISM PROTOCOL [...] (ABNORMAL) D-DIMER, QUANTITATIVE (01/17/2025 5:50 PM CDT) D-DIMER 2,027(H) 0 - 500 ng{FEU}/mL 01/17/2025 6:10 PM CDT [facility] Comment: CALLED TO MATHEW DUFFY [...] CDT Sami Mehta DO LABORATORY Final Result [facility] [address] [place] [address], * (ABNORMAL) HCG QUANT (SERUM)-CHORIONIC GONADOTROPIN (01/14/2025 1:15 PM CDT) Only the most recent of2 resultswithin the time period is included. Pathologist [facility] HCG QUANTITATIVE 5,590(H) 0.0 - 6.0 MIU/ML 01/14/2025 2:16 PM CDT [facility] Comment: WEEKS OF REFERENCE RANGES [...] Shawn Mcginnis MD LABORATORY Final Resu lt [facility] [address] [place] [address], * US OB TRANSVAG (01/13/2025 6:37 PM [...] 5:28 PM Narrative 01/13/2025 5:39 PM CDT [place] [id number] [facility] [place] [address] EXAMINATION: US OB TRANSVAG HISTORY: Abdominal pain, [...] Procedure Note Taiwo Haddad MD - 01/13/[address] [place] [address] EXAMINATION: US OB TRANSVAG HISTORY: Abdominal pain, [...] interstitialectopic gestation. Recommend close clinical follow-up and ucykk-acbiepcluv-gd ultrasound as discussed above. 2. Estimated gestational age by mean sac diameter is 5 weeks, 2 days. 3. No evidence of ovarian torsion. 4. Trace free pelvic fluid. Referred By: Interpreted By: Taiwo Haddad MD, 01/13/2025 5:28 PM Kaitlin Colon MD ULTRASOUND Final Resul t * TYPE AND SCREEN (01/13/2025 4:02 PM CDT) ABO/RH B POSITIVE 01/13/2025 4:56 PM CDT [facility] ANTIBODY SCREEN NEGATIVE 01/13/2025 4:56 PM CDT [facility] SAMPLE EXPIRATION 01/16/2025,2 359 01/13/2025 4:56 PM CDT [facility] 01/13/2025 4:02 PM CDT Kaitlin Colon MD BLOOD BANK TEST ORDERABLES Final Result Performing Organization Address City/[facility]/ZIP Co de Phone Number [facility] [address] [place] [place] [address], * CULTURE URINE (01/13/2025 3:43 PM CDT) SPEC DESCRIPTION URINE CLEAN CATCH 01/13/2025 3:49 PM CDT [facility] SPECIAL REQUESTS NO SPECIAL REQUEST 01/13/2025 3:49 PM CDT [facility] CULTURE RESULT NO GROWTH (< OR = 1,000 CFU/ML) 01/15/2025 10:12 AM CDT [facility] URINE SPECIMEN OBTAINED BY CLEAN CATCH PROCEDURE / Unknown 01/13/2025 3:43 PM CDT 01/13/2025 3:51 PM CDT Kaitlin Colon MD MICROBIOLOGY - GENERAL ORDE [facility] Final Result Performing Organization Address City/[facility] Co de Phone Number [facility] [address] [place] [address], [phone] [facility] [address] [place] [address], * (ABNORMAL) BASIC METABOLIC PANEL (01/13/2025 3:23 PM CDT) SODIUM S/P/B 136 136 - 145 MMOL/L 01/13/2025 4:22 PM CDT [facility] POTASSIUM S/P/B 3.6 3.5 - 5.1 MMOL/L 01/13/2025 4:22 PM CDT [facility] CHLORIDE S/P/B 101 98 - 107 MMOL/L 01/13/2025 4:22 PM CDT [facility] CO2 27.7 21.0 - 32.0 MMOL/L 01/13/2025 4:22 PM CDT [facility] GLUCOSE 106(H) 70 - 99 MG/DL 01/13/2025 4:22 PM CDT [facility] Comment: FASTING GLUCOSE 100 TO 125 MG/DL IS CONSISTENT WITH IMPAIRED FASTING GLUCOSE. FASTING GLUCOSE >125 MG/DL IS CONSISTENT WITH DIABETES. RANDOM GLUCOSE >200 MG/DL WITH HYPERGLYCEMIC SYMPTOMS IS CONSISTENT WITH DIABETES. PER ADA GUIDELINES BUN 11 6 - 24 MG/DL 01/13/2025 4:22 PM CDT [facility] CREATININE S/P/B 0.65 0.55 - 1.02 MG/DL 01/13/2025 4:22 PM CDT [facility] CALCIUM S/P/B 9.0 8.4 - 10.5 MG/DL 01/13/2025 4:22 PM CDT [facility] ANION GAP 7.3 5.0 - 15.0 MMOL/L 01/13/2025 4:22 PM CDT [facility] OSMOLALITY (CALC) 282 MOSM/KG 025 4:22 PM CDT [facility] Comment:REFERENCE RANGE NOT ESTABLISHED GFR ESTIMATE >90 >89 ML/MIN/1. 73 M2 01/13/2025 4:22 PM CDT [facility] GFR NOTES GFR REFERENCE S: 01/13/2025 4:22 PM CDT [facility] Comment: THE ESTIMATED GFR [...] Kaitlin Colon MD LABORATORY Final Resul t [facility] [address] [employer] [place], [place] [address] [phone] from Last 3 Months Insurance FLOOD Care Teams Hotbed Operator Relationship Specialty Start Date End Date Tanner Paige MD [address] [facility] [phone] PCP - General FAMILY PRACTICE 07/01/24 Steph Hightower MD [address] [place] [address] Consulting Physician CARDIOVASCULAR DISEASE 11/07/22 Janell Celaya APNP [address] [place] [address] NURSE PRACTITIONER 12/01/24
--- OUTSIDE RECORDS SUMMARY | 2025-02-10 13:19 | XMS_ITS | Data Portability ---
Author Organization [facility] Address [address] [place] [address] [place] [address] Care Team Providers Care Multiple Wire Sawyer Name Role Phone SEANCARLOS Primary Care Provider Assessment No assessment recorded. Plan of Treatment Reminders Order Date Submit Date Provider Last Modified By Organization Details Last Modified Time Details Appointments U/S OB FIRST LOOK 2024 11:00A M ULTRASOUND Not available Not available Not available OB NEW 2024 11:30A M Annette BRADLEY MD Not available Not available Not available Lab None recorde d. Referral None recorde d. Procedures None recorde d. Surgeries None recorde d. Imaging US, obstetr ic, transva ginal 2024 [address], [address], [place], [address], 01/27/2025 22:04:56 US, obstetr ic, transva ginal [address], [address], [place], [address], 01/14/2025 20:59:59 Medication Orders prometh azine 25 mg tablet 2024 025 [facility], [address] [facility], [place], [address], 02/04/2025 10:40:13 Fiorice t 50 mg-300 mg-40 mg capsule 2024 025 [facility] 060, [address] [facility], [place], [address], 02/05/2025 21:58:45 Patient TargetsNo targets recorded. Patient InstructionsNo instructions [...] Gynec ologi gonsalo Repor t Case: [id number] 94 Autho jayshree angelica Provi mic: Latoya Bradley MD Colle cted: 01/27 1722 Order ing Locat ion: [place] Patho logy Recei sunil: 01/28 0924 First Scree n: Cornelia Trimble , CT Speci men: Ranjit kyle Pap - Image d, Cervi x STATE [...] as clini kentrell rosario nted. Not Available [facility] (Lab) [address], [place], [address], 02/01/2025 12:02:58 01/28/2001/27/2025 TRICH OMONA S VAGIN CATHI (RRNA ) trichomonas vaginalis ribosomal RNA (rrna) Negati ve negati ve Not Available [facility] (Lab) [address], [place], [address], 02/01/2025 12:02:58 01/28/20 25 01/27/2025 CT/GC (JOHN) , THINP REP VIAL chlamydia trachomatis, PCR Negati ve negati ve Not Available [facility] (Lab) [address], [place], [address], 02/01/2025 12:02:59 01/28/20 25 01/27/2025 CT/GC (JOHN) , THINP REP VIAL neisseria gonorrhoeae, PCR Negati ve negati ve Not Available [facility] (Lab) [address] [facility], [place], [address], 02/01/2025 12:02:59 01/15/20 25 01/14/2025 US, pelvi s No observ ation record ed. [email or web address] [address], [place], [address], 01/14/2025 22:26:54 01/15/20 25 01/14/2025 US, obste tric, trans vagin al No observ ation record ed. [email or web address] [facility] [address], [place], [address], 01/14/2025 13:55:51 01/28/20 25 01/27/2025 US, obste tric, trans vagin al No observ ation record ed. [email or web address] [facility] [address], [place], [address], 01/27/2025 18:32:06 01/28/20 25 01/27/2025 US, obste tric, trans vagin al No observ ation record ed. [email or web address] [address], [place], [address], 01/27/2025 22:14:08 Result Notes None recorded. Problems Name Problem SNOMED Code Status Onset Date Resolution Date Notes Provider Name and Address Organization Details Recorded Time Gestatio n period, 37 weeks 47263685 Completed 201907/05/2021 37 weeks gestatio n of pregnanc y;Record ed Elsewher e: No Locat ion: [facility] S ource: EHR Chip Loft Worker yvrose: N Practi ce ID: [id number] Gigi lable Time: 09:00:00 AM Karina ramos [facility] 1 10:15:[address] Concept Completed 201907/05/2021 Matern care for abnlt fetl hrt rate or rhym, 3rd tri, unsp;Rec orded Elsewher e: No Locat ion: [facility] S ource: EHR Chip Loft Worker yvrose: N Natalyati ce ID: [id number] Gigi lable Time: 08:45:00 AM Karina ramos [facility] 1 10:15:29 Gestatio nal diabetes mellitus 84924023 Completed 201907/05/2021 Gestatio nal diabetes mellitus in pregnanc y, diet controll ed;Recor ded Elsewher e: No Locat ion: [facility] S ource: EHR Chip Loft Worker yvrose: N Natalyati ce ID: [id number] Gigi lable Time: 11:45:00 AM Karina ramos [facility] 10:15:25 Gestatio n period, 38 weeks 34875743 Completed 201907/05/2021 38 weeks gestatio n of pregnanc y;Record ed Elsewher e: No Locat ion: [facility] S ource: EHR Chip Loft Worker yvrose: N Natalyati ce ID: [id number] Ggii lable Time: 11:30:00 AM Karina ramos [facility] 1 10:15:13 Normal pregnanc y in multigra jessy [id number] 4106 Completed 201907/05/2021 Encounte r for supervis ion of other normal pregnanc y, 3rd trimeste r;Record ed Elsewher e: No Locat ion: [facility] S ource: EHR Chip Loft Worker yvrose: N Natalyati ce ID: [id number] Gigi lable Time: 10:45:00 AM Karina ramos [facility] 1 10:15:27 Amenorrh ea 40451726 Completed 202007/10/2021 Tammi Jones null, [facility] 1 13:08:35 Pregnanc y 99630030 Completed 202003/29/2022 Karina Burroughs null, [facility] 4 11:00:49 Hypereme sis 660085906 Completed phenerga n now prn Asia Steph hl null, [facility] 2 16:43:51 Anxiety in pregnanc y 07644926142 109 Completed will continue to monitor Asia Steph hl null, [facility] 2 16:43:51 Past pregnanc y history of gestatio nal diabetes mellitus 524990863 Completed Early 1 hr GTT @ 20wks 11/03 APPT Asia Steph hl null, [facility] 2 16:43:51 Spinal muscular atrophy 1783852 Completed Carrier - Not in contact with FOB. Asia Baileybebe hl null, [facility] 2 16:43:51 Pregnanc y 15820159 Completed 202304/22/2024 Karina Burroughs null, [facility] 4 11:00:49 Anxiety 05913787 Completed prozac Karina Burroughs null, [facility] 4 11:00:46 Nausea 654239021 Completed d/c zofran pump 11/08 per pt request Karina ramos, [facility] 4 11:00:46 Postpart um hemorrha ge 05143761 Completed 2017 with d&c Karina ramos, [facility] 4 11:00:46 Headache 38396280 Active 2023 Karina Burroughs null, [facility] 5 16:19:28 Pregnanc y 30786818 Active 2023 Karina Burroughs [facility] 5 16:19:28 Notes:Order faxed to [facility] access 08/10 for PICC line, and home health already caring for ptHilda Vladimir RN at [phone] Problem Notes None recorded. Procedures Surgical History Date Name Laterality Status Provider Name and Address Organization Details Recorded Time 5 Date of Last Pap Smear completed Karina Burroughs [facility] 01/28/2025 11:19:42 4 Nexplanon Removal completed Shawn Bradley MD [address], [place], [address], [facility] 08/05/2024 15:09:58 4 Control Implant Insertion completed Anju Mcnamara CNM [address], [place], [address], [facility] 05/08/2024 17:59:34 8 Dilation and Curettage completed Karina Burroughs [facility] 07/05/2021 10:17:50 Imaging Results Imaging Date Name Status LastModified by Organization Details LastModified Time 01/14/2025 US, pelvis completed [email or web address] [address], [place], [address], 01/14/2025 22:26:54 01/14/2025 US, obstetric, transvaginal completed [email or web address] [facility] [address], [place], [address], 01/14/2025 13:55:51 01/27/2025 US, obstetric, transvaginal completed [email or web address] [facility] [address], [place], [address], 01/27/2025 18:32:06 01/27/2025 US, obstetric, transvaginal completed [email or web address] [address], [place], [address], 01/27/2025 22:14:08 Procedure Notes None recorded. Medical Equipment None Reported. Allergies Allergen ID Allergen Name Allergen Category Reaction Reaction Severity Criticality Documentation Date Start Date Code Code System Note Provider Name and Address Organization Details Recorded Time 92616 terbutali ne medicatio n anaphylax is Not available Not available 01/27/20252021 36676 RxNorm Karina Burroughs [facility] 16:19:27 Medications Name Sig Start Date [...] completed Not Available Not Available Not Available Macrobid 100 mg capsule Take 1 capsule every 12 hours by oral route. 2024 active Not Available Not Available Not Avai lable nystatin- triamcino lone 100,000 unit/gram -0.1 % [...] Prescrib ed Elsewher e: Yes Loca tion: [facility] Shana odify By: prabhjot barrera DateTime : 01/14/20 [...] n (supplie d by office) insert lot [id number] Exp 01/2026 Not Available Not Available Not Available 28 mg iron-800 mcg tablet 07/05 completed Otoniel castillo: Yes Loca tion: [facility] M odify By: prabhjot barrera DateTime : 01/14/20 [...] Updated DateTime 01/14/2025 162.56 cm 27.3 kg/m2 54190.19 g 112 mm[Hg] 72 mm[Hg] Melyssa Santo [facility] 5 13:05:16 Date Recorded Body height Body mass index (BMI) Body weight Systolic blood pressure Diastolic blood pressure Provider Name and Address Organization Details Last Updated DateTime 01/27/2025 162.56 cm 27.8 kg/m2 08193.96 g 115 mm[Hg] 74 mm[Hg] Karina Burroughs [facility] 5 16:19:09 Date Recorded Body height Body mass index (BMI) Body weight Systolic blood pressure Diastolic blood pressure Provider Name and Address Organization Details Last Updated DateTime 02/04/2025 162.56 cm 28.2 kg/m2 25783.15 g 113 mm[Hg] 72 mm[Hg] Melyssa Gal [facility] 10:24:20 Social History Question Answer Notes LastModified by Organizat ion Details LastModified Time Tobacco Smoking Status Former Smoker Karina Heike null, [facility] 07/05/2021 09:06:21 What Is Your Level Of Alcohol Consumption? Occasional Information not available 07/05/2021 If You Are , What Was Your Level Of Alcohol Consumption Prior To ? None [email or web address] Information not available 07/05/2021 Are You Blind Or Do You Have Difficulty Seeing? No [email or web address] Information not available 07/05/2021 What Is Your Level Of Caffeine Consumption? Heavy Information not available 07/05/2021 In The 14 Days Before Symptom Onset, Have You Had Close Contact With A Laboratory-confir med COVID-19 While That Case Was Ill? No [email or web address] Information not available 07/05/2021 In The 14 Days Before Symptom Onset, Have You Had Close Contact With A Person Who Is Under Investigation For COVID-19 While That Person Was Ill? No Information not available 07/05/2021 Have You Been To An Area Known To Be High Risk For COVID-19? No [email or web address] Information not available 07/05/2021 Are You Deaf Or Do You Have Serious Difficulty Hearing? No [email or web address] Information not available 07/05/2021 What Type Of Diet Are You Following? REGULAR [email or web address] Information not available 07/05/2021 Which Illicit Or Recreational Drugs Have You Used? Marijuana Information not available 07/05/2021 Do You Or Have You Ever Used E-cigarettes Or Vape? Current User Of Electronic Cigarettes [email or web address] Information not available 07/05/2021 Have You Ever Been Counseled For Unhealthy Alcohol Use? No Information not available 07/05/2021 Do You Use Your Seat Belt Or Car Seat Routinely? Yes [email or web address] Information not available 07/05/2021 Do You Have Smoke And Carbon Monoxide Detectors In Your Home? Yes [email or web address] Information not available 07/05/2021 Do You Or Have You Ever Used Smokeless Tobacco? Never Used Smokeless Tobacco Information not available 07/05/2021 Do You Feel Stressed (tense, Restless, Nervous, Or Anxious, Or Unable To Sleep At Night)? [id number] [email or web address] Information not available 07/05/2021 Do You Use Any Illicit Or Recreational Drugs? Yes [email or web address] Information not available 07/05/2021 Do You Use Sunscreen Routinely? Yes [email or web address] Information not available 07/05/2021 Has Tobacco Cessation Counseling Been Provided? No [email or web address] Information not available 07/05/2021 Have You Used IV Drugs? No [email or web address] Information not available 07/05/2021 Do You Or Have You Ever Used Any Other Forms Of Tobacco Or Nicotine? Yes [email or web address] Information not available 07/05/2021 Sex: Unknown Functional Status Question Answer Note LastModified by Organizat ion Details LastModified Time Do you have difficulty walking or climbing stairs? No [email or web address] Information not available 12/06/2021 Are you able to walk? YESWOREST [email or web address] Information not available 07/05/2021 Are you able to care for yourself? Yes [email or web address] Information not available 12/06/2021 Do you have difficulty dressing or bathing? No Information not available 12/06/2021 What is your exercise level? Occasional [email or web address] Information not available 07/05/2021 Mental Status None recorded. Family History Relationship Description Onset Age of this Age Resolved Age Notes LastModified by Organization Details LastModified Time Father No current problems or disability [email or web address] Not available 05/2021 09:06:31 Mother No current problems or disability [email or web address] Not available 05/2021 09:06:31 Medical History Condition Response Other N Blood Transfusion N Dermatologic Disorders N Gestational Diabetes Y Anxiety Disorder Y Autoimmune disease N Arthritis N Polyps N Infertility N Acid Reflux (GERD) N Cancer N Varicosities N Stroke N Neurologic/Epilepsy N Fibromyalgia N Headaches N Kidney Disease N Heart Problems N Kidney or Bladder Problems N Eating Disorder N Art (IVF or FET) N Hepatitis/Liver Disease N No Past Medical History N Urinary Tract Infection N Asthma N Trauma/Violence N Thrombophilias N Allergies (Food, seasonal, environmental ) N Breast Cancer N Drug/Latex Allergies/Reactions N Lung Disease Y Defects or Inherited Disease N Breast Problem N Hematologic disorders N Anesthesia Complications N History of STI Y Deep Vein Thrombosis N Polycystic ovary syndrome N History of abnormal pap N Endometriosis N High Cholesterol N Thyroid Problems N GI Problems N Anemia Y Psychiatric Illness N Ovarian Cancer N Diabetes N Pulmonary (TB, Asthma) N Eczema N Abuse/Domestic Violence N Depression/ depression Y Heart Disease N Pre-Eclampsia N Hypertension N Osteoporosis N Gynecological History Statement/Question Response Abnormal Pap [...] SNOMED-CT Code Diagnosis ICD10 Code Diagnosis Note [id number] Anju Mcnamara CNM [facility] [address] [address] 07/05/2021 09:58:05 07/05/2021 11:16:35 Pityriasis versicolor 65387436 B36.0 also wash with selsum blue shampoo Vaginitis 56807737 N76.0 Nausea 105927012 R11.0 [facility] 668984553 Z30.9 [id number] Betsey Joya [facility] [address] [address] 08/02/2021 10:30:44 08/04/2021 10:07:43 Severe hyperemesis gravidarum 109415838 O21.1 Pt has not held anything down for more than 24 hours. Sent to ER for hydration and evaluation . We have discussed dietary precaution s. Recommend very small frequent meals. Avoid greasy, spicy or trigger foods. I do believe she may benefit from home health for fluids and IV antiemetic s. [id number] Anju Mcnamara [facility] [address],[place] [address] 08/08/2021 10:22:11 08/08/2021 13:42:05 Depressive disorder 57740505 F32.A in an emergency [facility] info given and kettler reminder, if increased thoughts or plan to hospital for immediate care, pt agrees, continue counseling , will try lexapro once can keep down fluids, se reviewed Gynecologi c examination 60290334 Z01.419 Z11.3 Z11.8 Amenorrhea 17872699 N91. 2 plan NOB and first look Nausea and vomiting 1693 2000 R11.2 unable to leave urine, unable at this time to go to LD, encouraged to go to LD for hydration, working on home health services, [id number] Ivana Farnsworth [facility] [address],[place] [address] 08/08/2021 10:21:08 08/08/2021 10:53:33 Routine care 285436602 Z34.91 Z3A.08 [id number] Anju Mcnamara [facility] [address],[place] [address] 09/13/2021 14:51:52 09/14/2021 13:44:23 test positive 175696806 Z32.01 Routine an tenatal care 093084227 Z34.91 [id number] Darlene De La Torre [facility] [address],[place] [address] 09/13/2021 15:35:32 09/13/2021 16:26:27 screening 166608278 Z36.82 [id number] Betsey Joya [facility] [address],[place] [address] 10/09/2021 12:26:15 10/09/2021 17:39:00 Urinary symptoms 004188383 R39.9 Fatigue 72534100 R53.83 Venereal d isease screening 683761581 Z11.3 [id number] Anju Mcnamara [facility] [address],[place] [address] 10/16/2021 11:57:23 10/16/2021 12:48:11 Routine care 008137981 Z34.91 [id number] Anju Mcnamara [facility] [address],[place] [address] 11/03/2021 11:32:21 11/03/2021 13:52:13 Routine care 010722388 Z34.91 [id number] Ivana Farnsworth [facility] [address],[place] [address] 11/03/2021 11:31:37 11/03/2021 12:34:34 screening for malformation 669553216 Z36.3 [id number] Anju Mcnamara [facility] [address],[place] [address] 12/06/2021 14:46:58 12/06/2021 16:07:59 Routine care 214419058 Z34.91 Iron defic iency anemia 50017474 D50.9 Anxiety 04376038 F41.9 [id number] Ivana Farnsworth [facility] [address],[place] [address] 12/06/2021 14:46:10 12/06/2021 15:18:30 condition affecting obstetrical care of mother 436091714 O35.8XX0 Z3A.25 [id number] Anju Mcnamara [facility] [address] [place] [address] 12/22/2021 11:04:34 12/22/2021 11:32:13 Routine care 249495958 Z34.91 [id number] Darlene Wil [facility] [address] [place] [address] 01/03/2022 14:21:04 01/03/2022 15:48:26 Uterine size for dates discrepancy 362677839 O26.843 Z3A.29 [id number] Anju Mcnamara [facility] [address],[place] [address] 01/03/2022 14:21:33 01/03/2022 15:13:41 Routine care 265236691 Z34.91 [id number] Anju Mcnamara [facility] [address],[place] [address] 01/17/2022 16:53:11 01/17/2022 17:24:14 Routine care 620563663 Z34.91 Persistent cough 9399135 02 R05.3 [id number] Betsey Joya [facility] [address],[place] [address] 02/06/2022 09:22:49 02/06/2022 09:55:25 Routine care 580228083 Z34.93 [id number] Darlene De La Torre [facility] [address],[place] [address] 02/13/2022 14:43:16 02/13/2022 15:26:49 Poor growth affecting management 526858360 O36.5930 Z3A.35 [id number] Anju Mcnamara [facility] [address],[place] [address] 02/16/2022 15:13:14 02/16/2022 15:58:27 Routine care 707169439 Z34.91 [id number] Anju Mcnamara [facility] [address],[place] [address] 03/02/2022 15:02:03 03/02/2022 15:28:58 Routine care 813470710 Z34.91 [id number] BOLA Miller [facility] [address],[place] [address] 03/27/2022 10:37:37 03/27/2022 11:14:18 Mixed anxiety and depressive disorder 217486989 F41.8 Chest pain 66152960 R07. 9 She has a hx of [...] treatment for anxiety/de pression.Bianca peng has a [employer] driver that will take her to [place] ED (vitals are WNL, no acute distress noted).She has no thoughts of harming herself or others.She will call the office to schedule an appointmen t to be seen after ED evaluation . We discussed at that time can start therapy for depression /anxiety. RTC after cleared by ED Time spent with the patient was 20 minutes [id number] Shawn Bradley MD [facility] [address],[facility] [place] [address] 04/16/2022 15:11:58 04/16/2022 17:11:09 Mixed anxiety and depressive disorder 892896126 F41.8 this patient is a 22-year-ol d [...] ce. More than 50% was counseling . [id number] Ivana Farnsworth [facility] [address] [address] 04/16/2022 16:43:28 04/16/2022 17:34:26 Abnormal uterine bleeding 8300361957 9100 N93.9 [id number] BOLA Miller [facility] [address] [address] 06/19/2022 17:24:32 06/19/2022 18:03:44 Abnormal uterine bleeding 8084271196 9100 N93.9 We discussed likely spotting is [...] of plan of care. Pain in pelvis 66395419 R10.2 Contracept ion care management 483159726 Z30.9 Irregular periods 699701 07 N92.6 Venereal d isease screening 752011932 Z11.3 Anxiety 76324198 F41.9 [id number] Darlene [facility] [address] [address] 10/02/2023 13:44:25 10/02/2023 14:07:54 screening 309514036 Z36.82 Z36.87 Z3A.11 [id number] [facility] [address] [address] 10/02/2023 13:46:45 10/02/2023 14:50:25 Amenorrhea 72588059 N91.2 plan NOB and first look NIPT and labs todaywants tubal ligation after delivery Gynecologi c examination 12970706 Z01.419 Z11.3 Z11.8 Nausea and vomiting 1693 1999 R11.2 [id number] Anju Mcnamara [facility] [address],[place] [address] 11/01/2023 11:17:59 11/01/2023 13:01:44 Gestation period, 16 weeks 14768859 Z3A.16 Anxiety 85768351 F41.9 [id number] Darlene [facility] [address],[place] [address] 11/27/2023 14:04:37 11/27/2023 15:16:15 screening for malformation 933600626 Z36.3 Z3A.19 [id number] Anju Mcnamara [facility] [address],[place] [address] 11/27/2023 14:13:33 11/27/2023 15:31:00 Routine care 378640526 Z34.91 [id number] Anju Mcnamara [facility] [address],[place] [address] 12/25/2023 14:51:56 12/25/2023 15:52:45 Routine care 392646133 Z34.91 [id number] Anju Mcnamara [facility] [address],[place] [address] 02/14/2024 14:13:14 02/14/2024 16:07:12 Routine care 447956070 Z34.91 [id number] Anju Mcnamara [facility] [address],[place] [address] 03/27/2024 11:47:21 03/27/2024 12:30:07 Routine care 185069116 Z34.91 [id number] Anju Mcnamara [facility] [address],[place] [address] 05/08/2024 14:54:41 05/11/2024 09:00:41 Screening procedure 28186501 Z13.9 Insertion of subcutaneous contraceptive 492585025 Z30.46 reviewed se risks and benefits, bandage until skin closes, pressure bandage x 24 hourswill schedule bilateral salpingect kateryna with dr. bradley care 59042954 8 Z39.2 continue multivitam in Sterilizat ion requested 202454488 Z30.2 [id number] Shawn Bradley MD [facility] [address],[place] [address] 08/05/2024 13:57:53 08/05/2024 15:11:54 Contraception care management 496720352 Z30.9 Nexplanon removed without complicati ons. She tolerated well. [id number] [facility] [place] [address],[place] [address] 01/14/2025 11:51:17 01/14/2025 12:53:24 Uncertain viability of 477331433 Z3A.01 [id number] Shawn Bradley MD [facility] [address],[place] [address] 01/14/2025 11:51:38 01/15/2025 09:38:25 Pain in pelvis 99014783 R10.2 25-year-ol d female presents for ER [...] care. She will return in 2 weeks. [id number] [facility] [place] [address],[place] [address] 01/27/2025 14:42:15 01/27/2025 15:35:58 Abdominal pain in 823375318 O99.891 Z3A.01 [id number] Shawn Bradley MD [facility] [address],[place] [address] 01/27/2025 14:55:24 01/27/2025 16:41:41 Amenorrhea 07127450 N91.2 Z32.01 this patient is a 25-year-ol [...] begin routine care at her next visit. [id number] Shawn Bradley MD [facility] [address] [address] 02/04/2025 10:09:23 02/04/2025 10:48:21 Headache 97307122 R51.9 Nausea and vomiting 1693 2000 R11.2 [...] Roberts Member ID Guarantor Name 01/14/2025 1 [facility] (MEDICAID HMO) [id number] Yuni Brown [id number] Yuni Mejia 01/14/2025 1 [facility] (MEDICAID HMO) [id number] 0003 Yuni Brown [id number] Yuni Brown 01/27/2025 1 [facility] (MEDICAID HMO) [id number] 0003 Yuni Brown [id number] Yuni Brown 01/27/2025 1 [facility] (MEDICAID HMO) [id number] 0003 Yuni Brown [id number] Yuni Brown 02/04/2025 1 [facility] (MEDICAID HMO) [id number] 0003 Yuni Brown [id number] Yuni Mejia Notes Date Note Type Note Provider Name and Address Organization Details Recorded Time 01/14/2025 text/html 25-year-old fema le presents for ER follow-up. She was in [...] weeks. Shawn Bradley MD [address], [place], [address], [facility] 01/14/2025 21:27:11 01/27/2025 text/html [...] She was given recommendations on exercise, diet, ujcm-drr-uixivbi medications. We reviewed her obstetric history. We reviewed her medical history. We reviewed her social history. She will begin routine care at her next visit. Shawn Bradley MD [address], [place], [address], [facility] 01/27/2025 16:36:44 02/04/2025 text/html 25-year-old neal lane with severe nausea, 8 weeks gestation, hyperemesis gravidarum. Patient states Zofran is not working anymore. She is unable to keep liquids down. We talked about various treatment options in detail. Spent over 20 minutes [id number] with the patient and on her care in total. We agreed to send to labor and delivery for IV fluids. Shawn Bradley MD [address], [place], [address], [facility] 02/04/2025 10:46:36 OBGyn Episode Ob Episode Information Episode Created Date Number of Fetuses Patient Bloodtype Patient rh Status Prepregnancy Weight lbs Domestic Partner Domestic Partner Phone Father Name Air Quality Engineer Status 03/14/20 20 1 CLOSED Fetus Data First Name Last Name Admitted to NICU Weight (g) Sex Living Outcome Pediatric Complications Fetus ID Race Codes Race Delivery Type 3259.96 5704 F Full Term 1540 Vaginal Delivery Jun Calculation Initial Jun Date [...] Domestic Partner Domestic Partner Phone Father Name Air Quality Engineer Status 07/05/20 21 1 CLOSED Fetus Data First Name Last Name Admitted to NICU Weight (g) Sex Living Outcome Pediatric Complications Fetus ID Race Codes Race Delivery Type , Spontane ous 71894 Jun Calculation Initial Jun Date Initial Exam [...] Domestic Partner Domestic Partner Phone Father Name Air Quality Engineer Status 09/13/20 21 1 B Positive 103 diontre silva CLOSED Fetus Data First Name Last Name Admitted to NICU Weight (g) Sex Living Outcome Pediatric Complications Fetus ID Race Codes Race Delivery Type 3316.89 15 F true Full Term terminal meconium 85343 Vaginal Delivery Problems Problem Notes EIF in LV noted5 PIH WNL, UC WNL Problem Name Start Date End Date Resolution Snomed Code Not e Spinal muscular atrophy [id number] Carrier - Not i n contact with FOB. Past history of gestational diabetes mellitus 555006998 Early 1 hr GTT @ 20wks 11/03 APPT Hyperemesis [id number] phenerga n now prn Anxiety in [id number] 80801 will continue to monitor Jun Calculation Initial [...] Date Ultra Sound Latest Days Gestation 0 [id number] 09/14/2021 03/16/20 22 0 Pre-fabiola Flowsheet Flowsheet Date 09/13/2021 Gibson Score Blood [...] Weight in lbs Pre/Post Dialysis Refused Weight 110.921894142602 BP Diastolic BP Location Tested BP Systolic [...] Weight in lbs Pre/Post Dialysis Refused Weight 119.861393924697 BP Diastolic BP Location Tested BP Systolic [...] Weight in lbs Pre/Post Dialysis Refused Weight 120.404534237946 BP Diastolic BP Location Tested BP Systolic [...] Weight in lbs Pre/Post Dialysis Refused Weight 124.435128983410 BP Diastolic BP Location Tested BP Systolic [...] Weight in lbs Pre/Post Dialysis Refused Weight 137.035480442963 BP Diastolic BP Location Tested BP Systolic [...] Weight in lbs Pre/Post Dialysis Refused Weight 145.0340762460 BP Diastolic BP Location Tested BP Systolic [...] Weight in lbs Pre/Post Dialysis Refused Weight 152.503186281365 BP Diastolic BP Location Tested BP Systolic [...] Weight in lbs Pre/Post Dialysis Refused Weight 150.986521726967 BP Diastolic BP Location Tested BP Systolic [...] Weight in lbs Pre/Post Dialysis Refused Weight 157.094570399458 BP Diastolic BP Location Tested BP Systolic [...] Weight in lbs Pre/Post Dialysis Refused Weight 158.105866209935 BP Diastolic BP Location Tested BP Systolic [...] Weight in lbs Pre/Post Dialysis Refused Weight 163.974668563052 BP Diastolic BP Location Tested BP Systolic [...] Weight in lbs Pre/Post Dialysis Refused Weight 134.129838357271 BP Diastolic BP Location Tested BP Systolic [...] At Estimated Date of Delivery false Thalassemia (Colombian, Faroese, Mediterranean, Or Background): MCV < 80 false Neural Tube Defect (Meningom yelocele, Spina Bifida, Or Anencephaly) false Congenital Heart Defect false Down Syndrome false Erick-Sachs (eg, Yarsanism, Cajun, Georgian-Coryell) f alse Lizzette Disease false Sickle Cell Disease Or Trait () false Hemophilia Or Other Blood Disorders false Muscular Dystrophy false Cystic Fibrosis false Lindsey's Chorea false Intellectual Disability/Autism false If Yes, [...] d Regional-Ep idural 39 false Anju Mcnamara CNShana Spinal muscular atrophy Discharge Information Feeding Method Contraceptive Method Maternal HG B and HCT Levels Ob Episode Information Episode Created Date Number of Fetuses Patient Bloodtype Patient rh Status Prepregnancy Weight lbs Domestic Partner Domestic Partner Phone Father Name Air Quality Engineer Status 07/05/20 21 1 CLOSED Fetus Data First Name Last Name Admitted to NICU Weight (g) Sex Living Outcome Pediatric Complications Fetus ID Race Codes Race Delivery Type 3175.14 4 F Full Term 42289 Vaginal Delivery Jun Calculation Initial Jun Date [...] Domestic Partner Domestic Partner Phone Father Name Air Quality Engineer Status 11/01/19 24 1 B Positive 126 Virgil Wand CLOSED Fetus Data First Name Last Name Admitted to NICU Weight (g) Sex Living Outcome Pediatric Complications Fetus ID Race Codes Race Delivery Type 3401.94 M true Full Term 71328 Vaginal Delivery Problems Problem Notes gallbladder attack/pain - re ferral to Gen Surg Dr. Boles sent 11/08- pt never went because pain stopped Problem Name Start Date End Date Resolution Snomed Code Not e Anxiety [id number] prozac Nausea [id number] d/c zofran pump 11/08 per pt request hemorrhage 00196985 hx 2017 with d&c Jun Calculation Initial Jun [...] Ultra Sound Latest Days Gestation 0 0 Pre- Flowsheet Flowsheet Date 11/01/2023 Gibson Score Blood Edema Fundus Height Fundus Units Glucose Ketones Leukocytes Nitrite Labor Signs Protein Cervic Dilation Cervic Effacement Cervic Station neg none none trace Type Weight in lbs Pre/Post Dialysis Refused Weight 130.094652128296 BP Diastolic BP Location Tested BP Systolic [...] Weight in lbs Pre/Post Dialysis Refused Weight 136.355945209941 BP Diastolic BP Location Tested BP Systolic [...] Weight in lbs Pre/Post Dialysis Refused Weight 144.103449839567 BP Diastolic BP Location Tested BP Systolic [...] Weight in lbs Pre/Post Dialysis Refused Weight 154.269399947481 BP Diastolic BP Location Tested BP Systolic [...] Weight in lbs Pre/Post Dialysis Refused Weight 157.672270042230 BP Diastolic BP Location Tested BP Systolic [...] Tubal Sterilization Discharge Date Comments 4 27.2 [place]ju cast[place] CNM 04/11/2024 limited care Discharge Information Feeding Method Contraceptive Method Maternal HG B and HCT Levels
--- OUTSIDE RECORDS SUMMARY | 2025-02-10 13:19 | XMS_ITS | Encounter Summary ---
Author Organization [facility] Address [address] [place] [address] Care Team Providers Care Personal Injury Legal Assistant Name Role Phone Steph Hightower MD Unavailable Tanner Paige MD Primary Care Provider [phone] Janell Celaya APNP Unavailable Encounter Details Date [...] Recorded Patient Health Questionnaire-2 Score 0 05/13/2024 [facility] - Occupational Stress Questionnaire Answer Date [...] AM JONIT Sampson Caldera RN Active * [place] Suicide Severity Rating Scale (Screener/Recent Self-Report) Question Answer Date of Assessment Author Status 1. Wish to be (Past 1 Month) No 02/10/2025 9:52 AM JONIT Nhi Caldera RN Activ e 2. Non-Specific Active Suicidal Thoughts (Past 1 Month) No 02/10/2025 9:52 AM JONIT Nhi Caldera RN Activ e 6. Suicidal Behavior (Lifetime) No 02/10/2025 9:52 AM JONIT Nhi Caldera RN Activ e documented as [...] documented as of this encounter Care Teams Personal Injury Legal Assistant Relationship Specialty Start Date End Date Tanner Paige MD [address] [facility] [place] [address] PCP - General FAMILY PRACTICE 07/01/24 Steph Hightower MD [address] [place] [address] Consulting Physician CARDIOVASCULAR DISEASE 11/07/22 Janell Celaya APNP [address] [place] [id number] NURSE PRACTITIONER 12/01/24 documented as of this encounter
--- OUTSIDE RECORDS SUMMARY | 2025-02-10 13:19 | XMS_ITS | Encounter Summary ---
Author Organization [facility] Address [address] [place] [address] Care Team Providers Care Wastewater Superintendent Name Role Phone Steph Hightower MD Unavailable Tanner Paige MD Primary Care Provider Janell Celaya APNP Unavailable Reason for Visit * Reason Comments Vomiting Encounter Details Date Type Department Care Team (Late st Contact Info) Description 02/10/2025 9:44 AM CDT - 02/10/2025 10:15 AM CDT Emergency [place] [facility] [facility] [place] [address] Kaitlin Colon MD [address] [place] [address] Vomiting Discharge Disposition: Left Against Medical [...] Recorded Patient Health Questionnaire-2 Score 0 05/13/2024 [facility] - Occupational Stress [...] 9:52 AM Sampson Rudd RN Active * [place] Suicide Severity Rating Scale (Screener/Recent Self-Report) Question [...] for this. Patient states she went to [place] emergency room yesterday and she states that the doctor was rude to her and dismissed her. She states she called her OB office who told her to drink Pedialyte and then come to [place] to see them today. Patient states that [...] nursing note reviewed. Exam conducted with a coffee maker servicer present (significant other). Constitutional: General: She is [...] 02/10/25 1138 SatFeb 10, 2025 1132 Patient's [place] PDMP has been reviewed. Previous ER visits [...] call patient x 2. 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 Unable to [...] AM CDT Pt comes to desk - Financial Services Director reviews AMA form. Pt signs and leaves [...] weeks. 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 Was taking zofran and switched to promethazine that pt states she isn't taking because it makes her throw up more. Pt states was seen at [facility] yesterday but left because 'the doctor was rude and baldev rodriguez told me to leave' states ob dr wants her to come to [place], 'but you guys are closer' also c/o ongoing pain to ribs, rates at 6. G vi, P iv, Ab i documented in this encounter Plan of Treatment Not on file documented as of this encounter Procedures Procedure Name Priority Date/Time Associated Diagnosis Comments CORONAVIRUS (COVID-19) ANTIGEN STAT 02/10/2025 9:53 AM CDT INFLUENZA A & B STAT 02/10/2025 9:53 AM CDT STREP A RAPID STAT 02/10/2025 9:53 AM CDT documented in this encounter Results * (ABNORMAL) STREP A RAPID (02/10/2025 9:53 AM CDT) SPECIMEN SOURCE THROAT 02/10/2025 9:56 AM CDT [facility] RAPID STREP TEST POSITIVE(A) NEGATIVE 02/10/2025 10:38 AM CDT [facility] Comment: CALLED TO MATHEW DUFFY 1035 02/10/25 AFW READ BACK AND VERIFIED STRUCTURE OF ANTERIOR PORTION OF NECK / Unknown 02/10/2025 9:53 AM CDT Kaitlin Colon MD MICROBIOLOGY - [facility] JOSE CORONADO Final Result Performing Organization Address City/[facility]/ZIP Co de Phone Number [facility] [address] [place], [place] [id number], * INFLUENZA A & B (02/10/2025 9:53 AM CDT) SPECIMEN TYPE (INFLUENZA) NASOPHARYNGEAL SWAB 02/10/2025 9:56 AM CDT [facility] INFLUENZA A NEGATIVE NEGATIVE 02/10/2025 10:41 AM CDT [facility] INFLUENZA B NEGATIVE NEGATIVE 02/10/2025 10:41 AM CDT [facility] Comment: A NEGATIVE RESULT DOES NOT EXCLUDE INFLUENZA VIRUS INFECTION. IF INFLUENZA IS CIRCULATING IN YOUR COMMUNITY, A DIAGNOSIS OF INFLUENZA SHOULD BE CONSIDERED BASED ON A PATIENT'S CLINICAL PRESENTATION AND EMPIRIC ANTIVIRAL TREATMENT SHOULD BE CONSIDERED IF INDICATED. NASOPHARYNGEAL SWAB / Unknown 02/10/2025 9:53 AM CDT Kaitlin Colon MD MICROBIOLOGY - [facility] JOSE CORONADO Final Result Performing Organization Address City/[facility]/ZIP Co de Phone Number [facility] [address] [place] [address], * CORONAVIRUS (COVID-19) ANTIGEN (02/10/2025 9:53 AM CDT) CORONAVIRUS ANTIGEN IA NEGATIVE NEGATIVE 02/10/2025 10:41 AM CDT [facility] Comment: NEGATIVE RESULTS DO NOT [...] SPECIMEN TYPE NASAL 02/10/2025 9:56 AM CDT [facility] NASAL NASAL STRUCTURE / Unknown 02/10/2025 9:53 AM CDT us Kaitlin Colon MD MICROBIOLOGY - GENERAL JOSE CORONADO Final Result [facility] [address] [place] [address], documented in this encounter Visit Diagnoses Diagnosis Sore throat- Primary Acute pharyngitis Strep pharyngitis Streptococcal sore throat 9 weeks gestation of ([facility]) state, incidental Vomiting Vomiting alone documented in [...] documented as of this encounter Care Teams Wastewater Superintendent Relationship Specialty Start Date End Date Tanner Paige MD [address] [facility] [place] [place] [address] PCP - General FAMILY PRACTICE 07/01/24 Steph Hightower MD [address] [place] [address] Consulting Physician CARDIOVASCULAR DISEASE 11/07/22 Janell Celaya APNP [address] [place] [address] NURSE PRACTITIONER 12/01/24 documented as of this encounter
[2025-02-10 13:35] VITALS: BP 107/54; PULSE 69; RESP 14; O2SAT 100
--- NOTE | 2025-02-10 13:40 | PC.NURSE ---
Pt. reports decrease in nausea since pharmacological interventions.
--- NOTE | 2025-02-10 14:16 | PC.NURSE ---
Pt. able to tolerate oral intake without vomiting.
[2025-02-10 14:20] VITALS: BP 116/72; PULSE 79; RESP 16; O2SAT 100
--- NOTE | 2025-02-10 18:53 | ED_ITS ---
HPI - Nausea/Vomiting/Diarrhea General Chief complaint: Nausea/Vomiting/Diarrhea Stated complaint: Hyperemesis-9wks, poss sinus infection Time Seen by Provider: 02/10/25 12:04 History of Present Illness HPI Narrative: Patient at 9 weeks with nausea, vomiting, URI symptoms, some by OBGYN as she cannot keep anything down. Tried oral Zofran without improvement. Also having chest pain and cough. Related Data Home Medications ?Medication ?Instructions ?Recorded ?Confirmed ?Last Taken ?Type albuterol sulfate 90 mcg/actuation 2 puff inhalation DAILY 02/04/25 02/04/25 02/03/25 History aerosol inhaler (Ventolin HFA) budesonide-formoterol HFA 80 2 puff inhalation DAILY 02/04/25 02/04/25 02/03/25 09:00 History mcg-4.5 mcg/actuation aerosol inhaler (Symbicort) ondansetron 4 mg disintegrating 4 mg PO Q8H 02/04/25 02/04/25 02/03/25 11:40 History tablet Allergies Allergy/AdvReac Type Severity Reaction Status Date / Time terbutaline Allergy Severe Anaphylactic Verified 02/10/25 11:03 Shock amoxicillin (From Amoxil) AdvReac Palpitation Verified 02/10/25 11:03 s Review of Systems 2 Review of Systems: All systems reviewed & are unremarkable except as noted in HPI and below PMFSH Past Medical History Medical History Anxiety Depression Encounter for supervision of normal in multigravida in second trimester related condition in second trimester Viral meningitis Surgical History Surgical History No pertinent past surgical history Family History Family History Grandparent Diabetes mellitus Social History Social History Smoking packs per day: 0.25 Smoking cigarettes per day: 5.0 Smoking status: Current every day smoker Tobacco type: e-cigarettes/vaping Second hand tobacco smoke exposure: No Alcohol intake: never Substance use: never Substance use type: marijuana Do You Feel Safe in your Home?: Yes Lack of Transportation: No Lack of Food: Never True Current Housing: I Have Housing Concerned About Future Housing: No Difficulty Paying Gas/Electric Bills: No Difficulty Paying for Meds: No Currently Unemployed: No Education: High School Diploma/GED Difficulty w/ Childcare or Family Care: YES Gender identity (if verbalized by the patient): Female Sexual Orientation (if Verbalized by the Patient): Straight or Heterosexual Spiritual care concerns: No Exam 2 Narrative: EXAMINATION OF ORGAN SYSTEMS/BODY AREAS: Constitutional: Vital signs per nursing GENERAL:[No acute distress, non-toxic appearing.] HEAD: Normal with no signs of head trauma. EYES: EOMI, conjunctiva normal ENT: Hearing grossly intact LUNGS: Nonlabored breathing. Clear to auscultation bilaterally HEART: [Regular rate and rhythm] ABD: [Soft], [nontender to palpation] EXT: Normal range of motion SKIN: [No rashes or lesions.] NEURO: [Alert and oriented x 3. No gross focal sensory or strength deficits.] PSYCH: Normal affect Course Vital Signs Vital signs: Vital Signs Temperature 97.6 F 02/10/25 11:24 Pulse Rate 84 02/10/25 11:24 Respiratory Rate 16 02/10/25 11:24 Blood Pressure 120/77 02/10/25 11:24 Pulse Oximetry 98 02/10/25 11:24 Temperature 97.6 F 02/10/25 11:24 Pulse Rate 79 02/10/25 14:20 Respiratory Rate 16 02/10/25 14:20 Blood Pressure 116/72 02/10/25 14:20 Pulse Oximetry 100 02/10/25 14:20 MDM - Nausea/Vomiting/Diarrhea MDM Narrative Medical decision making narrative: ED COURSE AND MEDICAL DECISION MAKIN-year-old female here with nausea, vomiting, URI symptoms, chest pain. Negative PERC making PE unlikely. Patient requesting chest x-ray to rule out PNA; understands risks of radiation. Chest x-ray on my independent interpretation is not show any obvious consolidation or pneumothorax I performed Bedside US showing IUP with nl FHR. Only antiemetic patient can tolerate Zofran so this is ordered along with fluids. Urinalysis showing bacteria so I will start her on antibiotics for asymptomatic bacteriuria On repeat evaluation just prior to discharge, the patient feels much better, no longer nauseous, is no acute distress. I had a long discussion with the patient and with shared decision making, she is comfortable with outpatient management. She was given clear return instructions by myself in person as well as on discharge paperwork. Lab Data 02/10/25 12:23 02/10/25 12:23 Labs: Lab Results 02/10/25 02/10/25 Range/Units 12:07 12:23 WBC 8.1 (4.5-10.0) K/mm3 RBC 4.29 (4.2-5.4) M/mm3 Hgb 11.7 L (12.0-15.0) g/dL Hct 36.5 L (37.0-47.0) % MCV 85.1 (80-100) fl MCH 27.3 (26-34) pg MCHC 32.1 (32-36) g/dl RDW 12.5 (11.5-14.5) % Plt Count 301 (150-375) k/mm3 MPV 9.2 (7.4-10.4) fl Immature Gran % (Auto) 0.5 (0-0.5) % Neut % (Auto) 64.8 (45.5-73.1) % Lymph % (Auto) 20.5 (18.3-44.2) % [place] % (Auto) 11.9 H (2.6-8.5) % Eos % (Auto) 1.9 (0-4.4) % Baso % (Auto) 0.4 (0.2-1.2) % Lymph # (Auto) 1.65 (0.9-3.2) K/mm3 [place] # (Auto) 1.0 H (0.1-0.6) K/mm3 Eos # (Auto) 0.2 (0-0.3) K/mm3 Baso # (Auto) 0.0 (0.0-0.1) K/mm3 Abs Immat Gran (auto) 0.04 H (0.00-0.031) K/mm3 Absolute Neuts (auto) 5.2 (1.3-6.7) K/mm3 Absolute Nucleated RBC 0.000 (0.0-0.012) K/mm3 Nucleated RBC % 0.0 (0.0-0.2) % Sodium 138 (137-145) mmol/L Potassium 3.7 (3.4-5.0) mmol/L Chloride 102 (98-107) mmol/L Carbon Dioxide 23 (22-30) mmol/L Anion Gap 13 H (4-12) mmol/L BUN 10 (7-17) mg/dL Creatinine 0.57 L (0.7-1.0) mg/dL Estim Creat Clear Calc 129 ml/min Estimated GFR > 60 (59 - ) Glucose 94 (65-110) mg/dL Calcium 8.9 (8.4-10.2) mg/dL Total Bilirubin 0.2 (0.2-1.3) mg/dL AST 29 (14-36) U/L ALT 19 (6-35) U/L Alkaline Phosphatase 62 (38-126) U/L Total Protein 8.0 (6.3-8.2) g/dL Albumin 4.4 (3.5-5.1) g/dL Lipase 40 (23-300) U/L Urine Color Yellow (Yellow) Urine Appearance Cloudy H (Clear) Urine pH 6.0 (5.0-9.0) Ur Specific [place] 1.031 (1.001-1.035) Urine Protein Trace (Negative) mg/dL Urine Glucose (UA) Negative (Negative) mg/dL Urine Ketones Negative (Negative) mg/dL Ur Blood (Man) Negative (Negative) Urine Nitrate Negative (Negative) Urine Bilirubin Negative (Negative) Urine Urobilinogen 1.0 (<2.0) mg/dL Leukocyte Esterase Rfl Negative (Negative) NEIL/UL Urine RBC 3-5 H (0-2) /hpf Urine WBC 0-5 (0-3) /hpf Ur Squamous Epith Cells Moderate (Few) /hpf Urine Bacteria 3+ H /hpf Urine Casts 0-2 Influenza A (RT-PCR) Negative (Negative) Influenza B (RT-PCR) Negative (Negative) RSV (RT-PCR) Negative (Negative) SARS-CoV-2 RNA (RT-PCR) Negative (Negative) Discharge Plan Discharge Clinical Impression: Asymptomatic bacteriuria, Nausea Patient Disposition: Home Condition: Stable Instructions: Antibiotic Form, Viral Syndrome (ED) Additional Instructions: Please follow up with your OBGYN; you can always return for any further issues. Patient Language: Danish Prescriptions: New cephalexin 500 mg capsule 500 mg PO BID 7 Days Qty: 14 0RF No Action ondansetron 4 mg tablet,disintegrating 4 mg PO Q8H albuterol sulfate [Ventolin HFA] 90 mcg/actuation HFA aerosol inhaler 2 puff inhalation DAILY budesonide-formoterol [Symbicort] 80-4.5 mcg/actuation HFA aerosol inhaler 2 puff inhalation DAILY Follow-up/Referrals: UNKNOWN,DOCTOR [Primary Care Provider] - Stand Alone Forms: Work/School Release IP
== END 2025-02-10 14:21 | disposition home or self-care (01) ==
PROVIDERS: Emergency Provider Emergency Medicine
DX: O23.41 Unspecified infection of urinary tract in pregnancy, first trimester (principal); B96.89 Other specified bacterial agents as the cause of diseases classified elsewhere; N39.0 Urinary tract infection, site not specified; Z3A.09 9 weeks gestation of pregnancy; R11.2 Nausea with vomiting, unspecified; Z20.822 Contact with and (suspected) exposure to COVID-19
CPT/HCPCS: 36415; 71045; 80053; 81001; 83690; 85025; 87637; 96361; 96374; 96375; 99284; J1200; J2405; J7120

== ENCOUNTER 2025-02-16 14:04 | Emergency (ER) | payer OTHER, SELFPAY ==
--- NOTE | ~2025-02-16 | XR_ITS ---
XR chest 1V portable Ordering provider: Gary Chaves MD History: 25 years Female with . CHEST PAIN WITH 9 WEEKS . Comparison: February 10, 2025 FINDINGS: MEDIASTINUM: The cardiac silhouette is not enlarged. LUNGS: No infiltrates, effusions or pneumothorax. OTHER: No free air under the diaphragm. IMPRESSION: No acute cardiopulmonary pathology. Reviewed, dictated and finalized at location A.
[2025-02-16 14:07] VITALS: BP 122/67; PULSE 86; RESP 16; TEMP 36.6; O2SAT 98
--- NOTE | 2025-02-16 14:21 | ECG_ITS ---
Test Date: 2025-02-16 14:26:04 Measurements Intervals [place] Rate: 83 P: 64 [place]: 136 QRS: 29 QRSD: 71 T: 15 QT: 337 QTc: 397 Interpretive Statements SINUS RHYTHM BORDERLINE ST-T WAVE ABNORMALITY- INFERIOR LEADS BASELINE ARTIFACT- I, II, III, AVR, AVL, AVF, V1, V4-V6 BORDERLINE ECG Compared to ECG 09/20/2024 21:01:38 No significant changes Electronically Signed On 02-16-2025 14:42:45 CDT by Vinicio Martínez D.O.
[2025-02-16 14:33] VITALS: BP 118/76; PULSE 94; RESP 17; O2SAT 99
[2025-02-16 14:38] LABS: Basophils Percent Auto 0.2 % (0.2-1.2); Eosinophils Absolute Auto 0.2 K/mm3 (0-0.3); Eosinophils Percent Auto 1.5 % (0-4.4); Hematocrit 35.4 % (37.0-47.0); Hemoglobin 11.5 g/dL (12.0-15.0); Immature Granulocyte Absolute 0.04 K/mm3 (0.00-0.031); Immature Granulocyte Percent A 0.4 % (0-0.5); Lymphocytes Absolute Auto 2.29 K/mm3 (0.9-3.2); Lymphocytes Percent Auto 22.1 % (18.3-44.2); Mean Corpuscular HGB Conc 32.5 g/dl (32-36); Mean Corpuscular Hemoglobin 27.1 pg (26-34); Mean Corpuscular Volume 83.3 fl (80-100); Mean Platelet Volume 9.2 fl (7.4-10.4); Monocytes Absolute Auto 0.9 K/mm3 (0.1-0.6); Monocytes Percent Auto 9.1 % (2.6-8.5); Neutrophils Absolute Auto 6.9 K/mm3 (1.3-6.7); Neutrophils Percent Auto 66.7 % (45.5-73.1); Platelet Count Result 313 k/mm3 (150-375); Red Blood Count 4.25 M/mm3 (4.2-5.4); Red Cell Distribution Width 12.4 % (11.5-14.5); White Blood Count 10.3 K/mm3 (4.5-10.0)
[2025-02-16 14:46] LABS: Alanine Aminotransferase 20 U/L (6-35); Albumin Level 4.2 g/dL (3.5-5.1); Alkaline Phosphatase 61 U/L (38-126); Anion Gap 10 mmol/L (4-12); Aspartate Amino Transferase 22 U/L (14-36); Bilirubin,Total 0.2 mg/dL (0.2-1.3); Blood Urea Nitrogen 12 mg/dL (7-17); Carbon Dioxide 23 mmol/L (22-30); Chloride 103 mmol/L (98-107); Estimated CRCL calculation 126 ml/min; Estimated Glomerular Filt Rate > 60; Glucose 94 mg/dL (65-110); Lipase 56 U/L (23-300); Potassium 3.6 mmol/L (3.4-5.0); Sodium 136 mmol/L (137-145)
[2025-02-16 15:06] LABS: Prothrombin Time 13.5 Seconds (11.1-14.7)
[2025-02-16 15:07] LABS: Partial Thromboplastin Time 27.9 Seconds (22.3-36.8)
--- NOTE | 2025-02-16 15:56 | ED.CHESTPAIN ---
HPI - Chest Pain General Chief Complaint: Chest Pain Stated Complaint: chest pain Time Seen by Provider: 02/16/25 14:20 History of Present Illness HPI narrative: 25-year-old female approximately 9 weeks by last menstrual period. She sees Dr. Mcginnis from OBGYN. Saw her primary care provider and tried to talk to her OBGYN today but was told to go the ER. This is patient's 5th , 1 history of miscarriage. No recent complaints aside from an upper respiratory infection weeks ago. Patient states she has been having intermittent chest discomfort with palpation and movement specially in her left-sided ribcage. Was told this was costochondritis but she has been taking Tylenol without any relief of her symptoms. Had an x-ray last week that showed no findings. Patient has not tried any other therapies and she is not sure what she can take with . Saw her PCP today and provided a list of medications to try but came to the ER for imaging. Denies any shortness a breath, no nausea, vomiting, abdominal pain. No pelvic pain or vaginal bleeding. No leakage of fluids. No complications during her previous pregnancies according to the patient. No fever chills or sick contacts. Related Data Home Medications ?Medication ?Instructions ?Recorded ?Confirmed ?Last Taken ?Type albuterol sulfate 90 mcg/actuation 2 puff inhalation DAILY 02/04/25 02/04/25 02/03/25 History aerosol inhaler (Ventolin HFA) budesonide-formoterol HFA 80 2 puff inhalation DAILY 02/04/25 02/04/25 02/03/25 09:00 History mcg-4.5 mcg/actuation aerosol inhaler (Symbicort) ondansetron 4 mg disintegrating 4 mg PO Q8H 02/04/25 02/04/25 02/03/25 11:40 History tablet Allergies Allergy/AdvReac Type Severity Reaction Status Date / Time terbutaline Allergy Severe Anaphylactic Verified 02/16/25 14:34 Shock amoxicillin (From Amoxil) AdvReac Palpitation Verified 02/16/25 14:34 s Review of Systems Review of Systems: As reviewed above in HPI [facility] Past Medical History Medical History Encounter for supervision of normal in multigravida in second trimester related condition in second trimester Viral meningitis Anxiety Depression Surgical History Surgical History No pertinent past surgical history Family History Family History Grandparent Diabetes mellitus Social History Social History Smoking packs per day: 0.25 Smoking cigarettes per day: 5.0 Smoking status: Current every day smoker Tobacco type: e-cigarettes/vaping Second hand tobacco smoke exposure: No Alcohol intake: never Substance use: never Substance use type: marijuana Do You Feel Safe in your Home?: Yes Lack of Transportation: No Lack of Food: Never True Current Housing: I Have Housing Concerned About Future Housing: No Difficulty Paying Gas/Electric Bills: No Difficulty Paying for Meds: No Currently Unemployed: No Education: High School Diploma/GED Difficulty w/ Childcare or Family Care: YES Gender identity (if verbalized by the patient): Female Sexual Orientation (if Verbalized by the Patient): Straight or Heterosexual Spiritual care concerns: No Exam Narrative: GENERAL: [Well-appearing, well-nourished, and in no acute distress.] HEAD: [Normocephalic, atraumatic.] EYES: [PERRLA and EOMI.] ENT: Nares clear, no rhinorrhea or epistaxis. Mucous membranes moist. NECK: Supple. CHEST: [Clear to auscultation. No respiratory distress.] Reproducible tenderness to palpation along the left-sided ribcage and chest wall, no overlying skin changes or rashes. No erythema. HEART: [Regular rate and rhythm]. No murmur heard. [Normal peripheral pulses.] ABDOMEN: [Soft, nondistended], [nontender], [No rigidity or guarding] EXTREMITIES: Normal range of motion. [No edema.] SKIN: Warm, dry, no rash. NEURO: [No focal deficits]. Alert and oriented [x3.] PSYCH: [Normal mood and affect.] Course Vital Signs Vital signs: Vital Signs Temperature 36.6 C 02/16/25 14:07 Pulse Rate 86 02/16/25 14:07 Respiratory Rate 16 02/16/25 14:07 Blood Pressure 122/67 02/16/25 14:07 Pulse Oximetry 98 02/16/25 14:07 Oxygen Delivery Room Air 02/16/25 14:07 Temperature 36.6 C 02/16/25 14:07 Pulse Rate 94 02/16/25 14:33 Respiratory Rate 17 02/16/25 14:33 Blood Pressure 118/76 02/16/25 14:33 Pulse Oximetry 99 02/16/25 14:33 Oxygen Delivery Room Air 02/16/25 15:19 MDM - Chest Pain MDM Narrative Medical decision making narrative: 25-year-old female proximally 9 weeks by last menstrual period. , no complications from previous . Has seen her OBGYN Dr. Mcginnis for this . Symptoms of chest pain with movement and breathing going on for 1 week. She has clear breath sounds, normal vital signs without any hypoxia, tachycardia, fever or tachypnea. Normal blood pressure. Strong symmetric pulses, reproducible chest pain with palpation and movement likely costochondritis. Patient has been taking Tylenol without any relief of her symptoms. Given her 1st trimester she has limited options to take but has not tried any topical therapies yet. Workup was ordered including a chest x-ray, EKG and basic laboratory studies to rule out any kind of pneumonia, cardiac issues such as pericarditis. She was provided Tylenol here in the ED. EKG shows sinus rhythm, no ST segment elevations, depressions. No significant changes compared to prior EKG. Overall normal interpretation of sinus rhythm. Workup shows no significant leukocytosis. Anemia of 11.5 at her baseline. Normal platelet count. Normal coagulation panel. Electrolytes unremarkable, normal renal function, normal hepatic function. Normal glucose. Chest x-ray shows no acute cardiopulmonary process. Patient is safe for discharge home at this time with referral back to her PCP and OBGYN for follow-up. She was provided prescription for topical therapies including lidocaine and mental and given return precautions. Medical Records Data Attestation: I reviewed the patient's medical records. Lab Data Attestation: I reviewed the patient's lab results. 02/16/25 14:30 02/16/25 14:30 Labs: Lab Results 02/16/25 Range/Units 14:30 WBC 10.3 H (4.5-10.0) K/mm3 RBC 4.25 (4.2-5.4) M/mm3 Hgb 11.5 L (12.0-15.0) g/dL Hct 35.4 L (37.0-47.0) % MCV 83.3 (80-100) fl MCH 27.1 (26-34) pg MCHC 32.5 (32-36) g/dl RDW 12.4 (11.5-14.5) % Plt Count 313 (150-375) k/mm3 MPV 9.2 (7.4-10.4) fl Immature Gran % (Auto) 0.4 (0-0.5) % Neut % (Auto) 66.7 (45.5-73.1) % Lymph % (Auto) 22.1 (18.3-44.2) % [place] % (Auto) 9.1 H (2.6-8.5) % Eos % (Auto) 1.5 (0-4.4) % Baso % (Auto) 0.2 (0.2-1.2) % Lymph # (Auto) 2.29 (0.9-3.2) K/mm3 [place] # (Auto) 0.9 H (0.1-0.6) K/mm3 Eos # (Auto) 0.2 (0-0.3) K/mm3 Baso # (Auto) 0.0 (0.0-0.1) K/mm3 Abs Immat Gran (auto) 0.04 H (0.00-0.031) K/mm3 Absolute Neuts (auto) 6.9 H (1.3-6.7) K/mm3 Absolute Nucleated RBC 0.000 (0.0-0.012) K/mm3 Nucleated RBC % 0.0 (0.0-0.2) % PT 13.5 (11.1-14.7) Seconds INR 1.0 APTT 27.9 (22.3-36.8) Seconds Sodium 136 L (137-145) mmol/L Potassium 3.6 (3.4-5.0) mmol/L Chloride 103 (98-107) mmol/L Carbon Dioxide 23 (22-30) mmol/L Anion Gap 10 (4-12) mmol/L BUN 12 (7-17) mg/dL Creatinine 0.51 L (0.7-1.0) mg/dL Estim Creat Clear Calc 126 ml/min Estimated GFR > 60 (59 - ) Glucose 94 (65-110) mg/dL Calcium 9.0 (8.4-10.2) mg/dL Total Bilirubin 0.2 (0.2-1.3) mg/dL AST 22 (14-36) U/L ALT 20 (6-35) U/L Alkaline Phosphatase 61 (38-126) U/L Total Protein 8.0 (6.3-8.2) g/dL Albumin 4.2 (3.5-5.1) g/dL Lipase 56 (23-300) U/L Imaging Data Attestation: I personally reviewed and interpreted this imaging study as follows: My impression: Impressions Chest X-Ray 02/16/25 14:59 IMPRESSION: No acute cardiopulmonary pathology. ECG Data EKG #1: Attestation: I personally reviewed and interpreted this ECG as follows: ECG completion date: 02/16/25 ECG completion time: 14:26 Prior ECG tracings: available for review Interpretation: EKG shows sinus rhythm, no ST segment elevations, depressions. No significant changes compared to prior EKG. Overall normal interpretation of sinus rhythm. QTC 397, QRS 71, CA interval 136. Regular rate, regular rhythm, regular axis. Discharge Plan Discharge Clinical Impression: Chest pain during , Chest pain, musculoskeletal Patient Disposition: Home Condition: Stable Instructions: Antibiotic Form, Chest Wall Pain (ED) Additional Instructions: Your laboratory studies are all reassuring, your chest x-ray shows no acute findings or concerns such as infection or lung damage. Your symptoms are very consistent with musculoskeletal chest wall pain and recommendations at this time were to continue taking Tylenol which is safe in and we will also send you home with some topical therapies to try which can applied directly to the areas that are painful. Follow-up with your regular doctor and OBGYN Dr. Mcginnis. Return with any emergent concerns. Patient Language: Occitan Prescriptions: New lidocaine 5 % cream 1 applic topical BID PRN (Reason: pain) Qty: 30 0RF Biofreeze (menthol) 4 % gel 1 applic topical Q6-12H PRN (Reason: pain) Qty: 44 0RF No Action ondansetron 4 mg tablet,disintegrating 4 mg PO Q8H albuterol sulfate [Ventolin HFA] 90 mcg/actuation HFA aerosol inhaler 2 puff inhalation DAILY budesonide-formoterol [Symbicort] 80-4.5 mcg/actuation HFA aerosol inhaler 2 puff inhalation DAILY cephalexin 500 mg capsule 500 mg PO BID 7 Days Qty: 14 0RF Follow-up/Referrals: UNKNOWN,DOCTOR [Primary Care Provider] - Time of Disposition: 15:55 Quality HEART score for chest pain patients History: slightly suspicious ECG: normal Age: < or = to 45 years Risk factors: no risk factors known Troponin: < or = to 1x normal limit Heart score: 0
--- OUTSIDE RECORDS SUMMARY | 2025-02-16 16:13 | XMS_ITS | Referral Summary ---
Author Organization [facility] Address [address] [place] [address] Care Team Providers Care Resident Surgeon Name Role Phone Tammi Menon DOREEN Primary Care Provider Encounters Date Type Department Care Team Description 12/31/2024 2:47 PM AGER TENDER - 12/31/2024 5:34 PM [facility] Emergency [facility] Emergency Department [facility] [place] [address] Shortness of breath (Primary Dx) [...] Plans to have care with Dr. Ortega eDnson in [place], [place]. Assessment & Plan (07/04/2019 7:48 PM CDT): - no plans to initiate care in [place] - gave Rx for doxylamine/pyridoxine for nausea - encouraged smoking cessation; recommended she d/w Dr. Addison Denson when she establishes care Abdominal pain in 07/04/2019 Overview (07/04/2019): 07/04/2019: presented to [facility], r/o for acute process. Transfer to [facility] for dating confirmation. Reports no BM in [...] on file Legal Sex Female 11:55 PM AGER TENDER Gender Identity Not on file Sexual Orientation Not on file Last Filed Vital Signs Vital Sign Reading Time Taken Comments Blood Pressure 101/69 12/31/2024 5:25 PM AGER TENDER Pulse 77 12/31/2024 5:25 PM AGER TENDER Temperature 37.1 C (98.7 F) 12/31/2024 2:09 PM AGER TENDER Respiratory Rate 18 12/31/2024 5:25 PM AGER TENDER Oxygen Saturation 100% 12/31/2024 5:25 PM AGER TENDER Inhaled Oxygen Concentration - - Weight 72.7 kg (160 lb 4.4 oz) 12/31/2024 2:09 P M AGER TENDER Height 165.1 cm (5' 5 ) 12/31/2024 2:09 PM AGER TENDER Body Mass Index 26.67 12/31/2024 2:09 PM AGER TENDER Plan of Treatment Not on file Procedures Procedure Name Priority Date/Time Associated Diagnosis Comments CT CHEST PE W CONTRAST ED 3:51 PM AGER TENDER POCT HCG, URINE Routine 12/31/2024 3:19 PM AGER TENDER XR CHEST PA LATERAL 2 VIEWS ED 12/31/2024 2:26 PM AGER TENDER EGFR STAT 12/31/2024 2:16 PM AGER TENDER DIFFERENTIAL AUTO STAT 12/31/2024 2:1 6 PM AGER TENDER D-DIMER, QUANTITATIVE STAT 12/31/2024 2:16 PM AGER TENDER COMPREHENSIVE METABOLIC PANEL STAT 12/31/2024 2:16 PM AGER TENDER CBC WITH AUTO DIFFERENTIAL STAT 12/31/2024 2:16 PM AGER TENDER INFLUENZA A/B, RSV, AND COVID-19 PCR STAT 12/31/2024 2:16 PM AGER TENDER from Last 3 Months Results * CT Chest PE (CTA) W Contrast (12/31/2024 3:51 PM AGER TENDER) Anatomical Region Laterality Modality Body N/A Computed Tomogra phy 12/31/2024 4:49 PM AGER TENDER Narrative 12/31/2024 5:03 PM AGER TENDER EXAM DESCRIPTION: CT CHEST PE (CTA) W [...] Quang Decker M.D. LC: GABRIEL Report ID: [id number] Reading Location: [id number] Procedure Note Yumiko Decker MD - 12/31/2024 [...] Quang Decker M.D. LC: GABRIEL Report ID: [id number] Reading Location: [place] [address] Lesley [facility] CT PROCEDURES Final Result * POCT hCG, urine (12/31/2024 3:19 PM AGER TENDER) HCG, ur, POC Negative Negative Lot Number [id number] QC Backgroud Clear Acceptable QC Control Line Acceptable Urine 12/31/2024 3:19 PM AGER TENDER Lesley DE LEON POINT OF CARE TEST ORDERABLES F inal Result * XR Chest PA Lateral 2 Views (12/31/2024 2:26 PM AGER TENDER) Anatomical Region Laterality Modality Body, Chest N/A Computed Radiogr aphy 12/31/2024 2:43 PM AGER TENDER Narrative 12/31/2024 2:43 PM AGER TENDER EXAM DESCRIPTION: XR CHEST PA LATERAL 2 [...] by Remberto Carney M.D. JR: Report ID: [id number] Reading Location: [id number] Procedure Note Remberto Carney MD - 12/31/2024 [...] by Remberto Carney M.D. JR: Report ID: [id number] Reading Location: [place] [address] us Lesley DE LEON IMG XR PROCEDURES Final Result * Influenza A/B, RSV, and COVID-19 PCR Nasopharyngeal (12/31/2024 2:16 PM AGER TENDER) Pathologist [facility] COVID-19 RNA Negative Negative Comment:Testing performed by : [address], [address] Influenza A RNA Negative Negative [facility] Comment:Testing performed by : [address] [address] Influenza B RNA Negative Negative [facility] Comment:Testing performed by : [address], [address] RSV RNA Negative Negative [facility] Comment: Interpretive data: Testing performed by [facility]. This test is performed using the [employer] Xpert Xpress CoV-2/Flu/RSV plus assay. This is a multiplex, real-time reverse transcriptase PCR assay intended for the qualitative detection of nucleic acid from SARS-CoV-2, influenza A, influenza B, and respiratory syncytial virus. This assay has been cleared by the [place] Food and Drug administration. The performance characteristics have been verified by the [facility]. Results must be considered in the clinical context, and a negative result does not rule out infection. Interpretive Data last revised 2023 Testing performed by: [address] [address] Nasopharyngeal 12/31/2024 2: 16 PM AGER TENDER 12/31/2024 2:24 PM AGER TENDER Narrative YEVGENIY - 12/31/2024 3:09 PM AGER TENDER Is the Patient experiencing symptoms consistent with COVID?->Yes us Lesley DE LEON LAB MICROBIOLOGY - GENERAL ORDE RABLES Final Result Performing Organization Address City/State/[facility] de Phone Number [facility] Department [place] [address] * eGFR (12/31/2024 2:16 PM AGER TENDER) Pathologist [facility] eGFR >90 >=60 [...] was last reviewed 2021. Testing performed by: [address] [address] Blood 12/31/2024 2:16 PM AGER TENDER 12/31/2024 2:24 PM AGER TENDER us Lesley DE LEON LAB BLOOD ORDERABLES Final Resu lt Performing Organization Address [facility] Co de Phone Number [facility] Department [place] [address] * (ABNORMAL) Differential, auto (12/31/2024 2:16 PM AGER TENDER) Pathologist [facility] Neutrophil abs 6.0 1.5 - 6.5 K/cumm Comment:Testing performed by : [address] [address] Imm gran abs 0.0 0.0 - 0.1 K/cumm YEVGENIY Comment:Testing performed by : [address] [address] Lymphocyte abs 2.7 0.8 - 3.3 K/cumm C[facility]ER Comment:Testing performed by : [address], [place]., [address] Monocyte abs 0.9(H) 0.2 - 0.8 K/cumm CERNER Comment:Testing performed by : [address], [place]., [address] Eosinophil abs 0.1 0.0 - 0.5 K/cumm [facility] Comment:Testing performed by : [address], [place]., [address] Basophil abs 0.0 0.0 - 0.1 K/cumm [facility] Comment:Testing performed by : [address] [address] Neutrophil pct 61.6 % [facility] Comment: Interpretive Data Percent cell count reference ranges are not reported, since discordance with absolute values may lead to misinterpretation of CBC data. Current Interpretive Data was last revised on 2018. Testing performed by: [address] [address] Imm gran pct 0.3 % [facility] Comment: Interpretive Data Percent cell count reference ranges are not reported, since discordance with absolute values may lead to misinterpretation of CBC data. Current Interpretive Data was last revised on 2018. Testing performed by: [address] [address] Lymphocyte pct 27.3 % [facility] Comment: Interpretive Data Percent cell count reference ranges are not reported, since discordance with absolute values may lead to misinterpretation of CBC data. Current Interpretive Data was last revised on 2018. Testing performed by: [address] [address] Monocyte pct 9.4 % [facility] Comment: Interpretive Data Percent cell count reference ranges are not reported, since discordance with absolute values may lead to misinterpretation of CBC data. Current Interpretive Data was last revised on 2018. Testing performed by: [address] [address] Eosinophil pct 1.2 % [facility] Comment: Interpretive Data Percent cell count reference ranges are not reported, since discordance with absolute values may lead to misinterpretation of CBC data. Current Interpretive Data was last revised on 2018. Testing performed by: [address] [address] Basophil pct 0.2 % YEVGENIY TOM Comment: Interpretive Data Percent cell count reference ranges are not reported, since discordance with absolute values may lead to misinterpretation of CBC data. Current Interpretive Data was last revised on 2018. Testing performed by: [address] [address] Blood 12/31/2024 2:16 PM AGER TENDER 12/31/2024 2:24 PM AGER TENDER us Lesley DE LEON LAB BLOOD ORDERABLES Final Resu lt [facility] Department [place] [address] * (ABNORMAL) CBC with auto differential (12/31/2024 2:16 PM AGER TENDER) WBC 9.8 3.8 - 9.9 K/cumm Comment:Testing performed by : [address] [address] Hgb 12.8 11.9 - 15.5 g/dL [facility]EV[facility] TOM Comment:Testing performed by : [address] [address] Hct 40.0 35.6 - 45.5 % [facility] TOM Comment:Testing performed by : [address] [address] Plt 288 150 - 400 K/cumm [facility] TOM Comment:Testing performed by : [address] [address] MPV 9.7 9.1 - 12.3 fL YEVGENIY TOM Comment:Testing performed by : [address] [address] RBC 4.74 3.90 - 5.20 M/cumm YEVGENIY TMO Comment:Testing performed by : [address] [address] MCV 84.4 81.3 - 96.4 fL YEVGENIY Comment:Testing performed by : [address] [address] MCH 27.0(L) 27.1 - 33.3 pg YEVGENIY TOM Comment:Testing performed by : [address] [address] MCHC 32.0(L) 32.3 - 35.7 g/dL YEVGENIY TOM Comment:Testing performed by : [address] [address] RDW CV 12.2 11.1 - 14.9 % YEVGENIY Comment:Testing performed by : [address] [address] RDW SD 36.9 35.7 - 48.1 fL YEVGENIY Comment:Testing performed by : [address] [address] NRBC abs 0.00 0.00 - 0.01 K/cumm [facility]EV[facility] Comment:Testing performed by : [address] [address] Blood 12/31/2024 2:16 PM AGER TENDER 12/31/2024 2:24 PM AGER TENDER us Lesley DE LEON LAB BLOOD ORDERABLES Final Resu lt YEVGENIY [address] [facility] Department of Laboratories [place], [place] [id number] * (ABNORMAL) D-dimer, quantitative (12/31/2024 2:16 PM AGER TENDER) D-Dimer 720(H) <=499 ng/mL FEU Comment: Interpretive [...] last revised on 2019. Testing performed by: [address] [address] Blood 12/31/2024 2:16 PM AGER TENDER 12/31/2024 2:24 PM AGER TENDER us Lesley DE LEON LAB BLOOD ORDERABLES Final Resu lt EYVGENIY [address] Department [place] [address] * (ABNORMAL) Comprehensive metabolic panel (12/31/2024 2:16 PM AGER TENDER) Sodium 137 135 - 145 mmol/L Comment:Testing performed by : [address] [address] Potassium, pl 4.1 3.3 - 4.9 mmol/L YEVGENIY Comment:Testing performed by : [address] [address] Chloride 103 97 - 110 mmol/L [facility]EV[facility]Y Comment:Testing performed by : [address] [address] CO2 24 22 - 32 mmol/L YEVGEN[facility]Y Comment:Testing performed by : [address] [address] Anion gap 10 2 - 15 mmol/L YEVGEN[facility]Y Comment:Testing performed by : [address] [address] BUN 11 6 - 25 mg/dL YEVGENIY Comment:Testing performed by : [address] [address] Creatinine 0.57(L) 0.60 - 1.10 mg/dL YEVGENIY Comment:Testing performed by : [address] [address] Glucose 89 70 - 199 mg/dL YEVGENIY [...] was last revised 2022. Testing performed by: [address] [address] Calcium 9.7 8.5 - 10.3 mg/dL YEVGENIY Comment:Testing performed by : [address] [address] Bilirubin, total 0.2 0.1 - 1.2 mg/dL YEVGENIY Comment:Testing performed by : [address] [address] Protein, pl 7.9 6.5 - 8.5 g/dL YEVGENIY Comment:Testing performed by : [address] [address] Albumin 4.4 3.5 - 5.0 g/dL YEVGENIY Comment:Testing performed by : [address] [address] Alk phos 89 40 - 130 Units/L YEVGENIY Comment:Testing performed by : [address] [address] ALT 21 7 - 45 Units/L YEVGENIY Comment:Testing performed by : [address] [address] AST 24 10 - 45 Units/L YEVGENIY Comment:Testing performed by : [address] [address] Blood 12/31/2024 2:16 PM AGER TENDER 12/31/2024 2:24 PM AGER TENDER Lesley DE LEON LAB BLOOD ORDERABLES Final Resu lt [facility] [address] [facility] [place] [address] from Last 3 Months Insurance [facility] Care Teams Resident Surgeon Relationship Specialty Start Date End Date Tammi Menon APRN [address] [place] [address] PCP - General Family Medicine 12/31/24
--- OUTSIDE RECORDS SUMMARY | 2025-02-16 16:13 | XMS_ITS | Encounter Summary ---
Author Organization [facility] Healthcare Address [address] [place] [address] Care Team Providers Care Weatherization Specialist Name Role Phone Kera Flanagan NP Primary Care Provider [phone] Tammi Menon APRN Primary Care Provider Encounter Details Date Type Department Care Team (Late st Contact Info) Description 10/25/2023 Orders Only [facility] Home Care Services [address] [facility] [address] [place] [address] Carli Whitaker, [facility] Social History Tobacco Use Types Packs/Day Years [...] on file Legal Sex Female 11:55 PM EPIC TRAINER Gender Identity Not on file Sexual Orientation Not on file documented as of this encounter Plan of Treatment Not on file documented as of this encounter Visit Diagnoses Not on filedocumented in this encounter Additional Health Concerns Infection Onset Date Last Indicated Resolved Time COVID: Suspected 12/31/2024 12/31/2024 12/31/2024 3:10 PM EPIC TRAINER documented as of this encounter Care Teams Weatherization Specialist Relationship Specialty Start Date End Date Kera Flanagan, EVERETT PCP - General 05/30/22 12/30/24 Tammi Menon APRN [address] [place] [address] PCP - General Family Medicine 12/31/24 documented as of this encounter
--- OUTSIDE RECORDS SUMMARY | 2025-02-16 16:13 | XMS_ITS | Clinical Summary ---
Author Organization [facility] Address [address] [place] [address] Care Team Providers Care Automatic Winder Operator Name Role Phone Tammi Menon DOREEN [...] have care with Dr. Ortega Denson in [place], [place]. Assessment & Plan (07/04/2019 7:48 PM CDT): - no plans to initiate care [place] - gave Rx for doxylamine/pyridoxine for nausea - encouraged smoking cessation; recommended she d/w Dr. Addison Denson when she establishes care Abdominal pain in 07/04/2019 Overview (07/04/2019): 07/04/2019: presented to [facility], r/o for acute process. Transfer to [facility] for dating confirmation. Reports no BM [...] Department Care Team Description 12/31/2024 2:47 PM ROUTE SALES SPECIALIST - 12/31/2024 5:34 PM ROUTE SALES SPECIALIST [facility] Emergency Department [address] [place] [id number] Shortness of breath (Primary Dx) Discharge Disposition: [...] on file Legal Sex Female 11:55 PM ROUTE SALES SPECIALIST Gender Identity Not on file Sexual Orientation [...] Comments Blood Pressure 101/69 12/31/2024 5:25 PM ROUTE SALES SPECIALIST Pulse 77 12/31/2024 5:25 PM ROUTE SALES SPECIALIST Temperature 37.1 C (98.7 F) 12/31/2024 2:09 PM ROUTE SALES SPECIALIST Respiratory Rate 18 12/31/2024 5:25 PM ROUTE SALES SPECIALIST Oxygen Saturation 100% 12/31/2024 5:25 PM ROUTE SALES SPECIALIST Inhaled Oxygen Concentration - - Weight 72.7 kg (160 lb 4.4 oz) 12/31/2024 2:09 P M ROUTE SALES SPECIALIST Height 165.1 cm (5' 5 ) 12/31/2024 2:09 PM ROUTE SALES SPECIALIST Body Mass Index 26.67 12/31/2024 2:09 PM ROUTE SALES SPECIALIST Plan of Treatment Health Maintenance Due Date [...] CHEST PE W CONTRAST ED 3:51 PM ROUTE SALES SPECIALIST POCT HCG, URINE Routine 12/31/2024 3:19 PM ROUTE SALES SPECIALIST XR CHEST PA LATERAL 2 VIEWS ED 12/31/2024 2:26 PM ROUTE SALES SPECIALIST EGFR STAT 12/31/2024 2:16 PM ROUTE SALES SPECIALIST DIFFERENTIAL AUTO STAT 12/31/2024 2:1 6 PM ROUTE SALES SPECIALIST D-DIMER, QUANTITATIVE STAT 12/31/2024 2:16 PM ROUTE SALES SPECIALIST COMPREHENSIVE METABOLIC PANEL STAT 12/31/2024 2:16 PM ROUTE SALES SPECIALIST CBC WITH AUTO DIFFERENTIAL STAT 12/31/2024 2:16 PM ROUTE SALES SPECIALIST INFLUENZA A/B, RSV, AND COVID-19 PCR STAT 12/31/2024 2:16 PM ROUTE SALES SPECIALIST from Last 3 Months Results * CT Chest PE (CTA) W Contrast (12/31/2024 3:51 PM ROUTE SALES SPECIALIST) Anatomical Region Laterality Modality Body N/A Computed Tomogra phy 12/31/2024 4:49 PM ROUTE SALES SPECIALIST Narrative 12/31/2024 5:03 PM ROUTE SALES SPECIALIST EXAM DESCRIPTION: CT CHEST PE (CTA) W [...] Quang Decker M.D. LC: GABRIEL Report ID: [id number] Reading Location: [place] [address] Procedure Note Yumiko Decker MD - 12/31/2024 [...] Quang Decker M.D. LC: GABRIEL Report ID: [id number] Reading Location: [place] [address] [address] PROCEDURES Final Result * POCT hCG, urine (12/31/2024 3:19 PM ROUTE SALES SPECIALIST) HCG, ur, POC Negative Negative Lot Number [id number] QC Backgroud Clear Acceptable QC Control Line Acceptable Urine 12/31/2024 3:19 PM ROUTE SALES SPECIALIST us Lesley DE LEON POINT OF CARE TEST ORDERABLES F inal Result * XR Chest PA Lateral 2 Views (12/31/2024 2:26 PM ROUTE SALES SPECIALIST) Anatomical Region Laterality Modality Body, Chest N/A Computed Radiogr aphy 12/31/2024 2:43 PM ROUTE SALES SPECIALIST Narrative 12/31/2024 2:43 PM ROUTE SALES SPECIALIST EXAM DESCRIPTION: XR CHEST PA LATERAL 2 [...] by Remberto Carney M.D. JR: Report ID: [id number] Reading Location: [id number] Procedure Note Remberto Carney MD - 12/31/2024 [...] by Remberto Carney M.D., JR: Report ID: [id number] Reading Location: [id number] Lesley DE LEON IM XR PROCEDURES Final Result * Influenza A/B, RSV, and COVID-19 PCR Nasopharyngeal (12/31/2024 2:16 PM ROUTE SALES SPECIALIST) COVID-19 RNA Negative Negative Comment:Testing performed by : [facility], [address] [place] [address]., [address] Influenza A RNA Negative Negative YEVGENIY Comment:Testing performed by : [address] [address] Influenza B RNA Negative Negative YEVGENIY Comment:Testing performed by : [facility], [address] [place] [address]., [address] RSV RNA Negative Negative YEVGENIY Comment: Interpretive data: Testing performed by [facility]. This test is performed using the [employer] Xpert Xpress CoV-2/Flu/RSV plus assay. This is a multiplex, real-time reverse transcriptase PCR assay intended for the qualitative detection of nucleic acid from SARS-CoV-2, influenza A, influenza B, and respiratory syncytial virus. This assay has been cleared by the [place] Food and Drug administration. The performance characteristics have been verified by the [facility]. Results must be considered in the clinical context, and a negative result does not rule out infection. Interpretive Data last revised 2023 Testing performed by: [facility], [address] [place] [address]., [id number] Nasopharyngeal 12/31/2024 2: 16 PM ROUTE SALES SPECIALIST 12/31/2024 2:24 PM ROUTE SALES SPECIALIST Narrative YEVGENIY - 12/31/2024 3:09 PM ROUTE SALES SPECIALIST Is the Patient experiencing symptoms consistent with COVID?->Yes [facility] LAB MICROBIOLOGY - GENERAL JOSE CORONADO Final Result YEVGENIY [address] [facility] Department [place] [address] * eGFR (12/31/2024 2:16 PM ROUTE SALES SPECIALIST) Pathologist [facility] eGFR >90 >=60 [...] was last reviewed 2021. Testing performed by: [address] [address] Blood 12/31/2024 2:16 PM ROUTE SALES SPECIALIST 12/31/2024 2:24 PM ROUTE SALES SPECIALIST us Lesley DE LEON LAB BLOOD ORDERABLES Final Resu lt YEVGENIY [address] [facility] Department [place] [address] * (ABNORMAL) Differential, auto (12/31/2024 2:16 PM ROUTE SALES SPECIALIST) Neutrophil abs 6.0 1.5 - 6.5 K/cumm Comment:Testing performed by : [address] [address] Imm gran abs 0.0 0.0 - 0.1 K/cumm YEVGENIY Comment:Testing performed by : [address] [address] Lymphocyte abs 2.7 0.8 - 3.3 K/cumm YEVGENIY Comment:Testing performed by : [address] [address] Monocyte abs 0.9(H) 0.2 - 0.8 K/cumm YEVGENIY Comment:Testing performed by : [address] [address] Eosinophil abs 0.1 0.0 - 0.5 K/cumm YEVGENIY Comment:Testing performed by : [address] [address] Basophil abs 0.0 0.0 - 0.1 K/cumm YEVGENIY Comment:Testing performed by : [address] [address] Neutrophil pct 61.6 % YEVGENIY Comment: Interpretive Data Percent cell count reference ranges are not reported, since discordance with absolute values may lead to misinterpretation of CBC data. Current Interpretive Data was last revised on 2018. Testing performed by: [address] [address] Imm gran pct 0.3 % YEVGENIY Comment: Interpretive Data Percent cell count reference ranges are not reported, since discordance with absolute values may lead to misinterpretation of CBC data. Current Interpretive Data was last revised on 2018. Testing performed by: [address] [address] Lymphocyte pct 27.3 % [facility] Comment: Interpretive Data Percent cell count reference ranges are not reported, since discordance with absolute values may lead to misinterpretation of CBC data. Current Interpretive Data was last revised on 2018. Testing performed by: [address] [address] Monocyte pct 9.4 % [facility] Comment: Interpretive Data Percent cell count reference ranges are not reported, since discordance with absolute values may lead to misinterpretation of CBC data. Current Interpretive Data was last revised on 2018. Testing performed by: [address] [address] Eosinophil pct 1.2 % [facility] Comment: Interpretive Data Percent cell count reference ranges are not reported, since discordance with absolute values may lead to misinterpretation of CBC data. Current Interpretive Data was last revised on 2018. Testing performed by: [address] [address] Basophil pct 0.2 % [facility] Comment: Interpretive Data Percent cell count reference ranges are not reported, since discordance with absolute values may lead to misinterpretation of CBC data. Current Interpretive Data was last revised on 2018. Testing performed by: [address] [address] Blood 12/31/2024 2:16 PM ROUTE SALES SPECIALIST 12/31/2024 2:24 PM ROUTE SALES SPECIALIST Lesley DE LEON LAB BLOOD ORDERABLES Final Resu lt YEVGENIY [address] [facility] Department [place] [address] * (ABNORMAL) CBC with auto differential (12/31/2024 2:16 PM ROUTE SALES SPECIALIST) WBC 9.8 3.8 - 9.9 K/cumm Comment:Testing performed by : [address] [address] Hgb 12.8 11.9 - 15.5 g/dL YEVGENIY Comment:Testing performed by : [address] [address] Hct 40.0 35.6 - 45.5 % YEVGENIY Comment:Testing performed by : [address] [address] Plt 288 150 - 400 K/cumm YEVGENIY Comment:Testing performed by : [address] [address] MPV 9.7 9.1 - 12.3 fL YEVGENIY Comment:Testing performed by : [address] [address] RBC 4.74 3.90 - 5.20 M/cumm YEVGENIY Comment:Testing performed by : [address] [address] MCV 84.4 81.3 - 96.4 fL YEVGENIY Comment:Testing performed by : [address] [address] MCH 27.0(L) 27.1 - 33.3 pg YEVGENIY Comment:Testing performed by : [address] [address] MCHC 32.0(L) 32.3 - 35.7 g/dL YEVGENIY Comment:Testing performed by : [address] [address] RDW CV 12.2 11.1 - 14.9 % YEVGENIY Comment:Testing performed by : [address] [address] RDW SD 36.9 35.7 - 48.1 fL YEVGENIY TOM Comment:Testing performed by : [facility], [address] [place] [address]., [address] NRBC abs 0.00 0.00 - 0.01 K/cumm YEVGENIY TOM Comment:Testing performed by : [facility], [address] [place] [address]., [address] Blood 12/31/2024 2:16 PM ROUTE SALES SPECIALIST 12/31/2024 2:24 PM ROUTE SALES SPECIALIST Lesley Nemaha IN LAB BLOOD ORDERABLES Final Resu lt Performing Organization Address [facility] Co de Phone Number YEVGENIY [address] [facility] [place] [address] * (ABNORMAL) D-dimer, quantitative (12/31/2024 2:16 PM ROUTE SALES SPECIALIST) D-Dimer 720(H) <=499 ng/mL FEU Comment: Interpretive [...] last revised on 2019. Testing performed by: [address] [address] Blood 12/31/2024 2:16 PM ROUTE SALES SPECIALIST 12/31/2024 2:24 PM ROUTE SALES SPECIALIST [facility] IN LAB BLOOD ORDERABLES Final Resu lt Performing Organization Address City/[facility]/ZIP Co de Phone Number YEVGENIY [address] [facility] [place] [address] * (ABNORMAL) Comprehensive metabolic panel (12/31/2024 2:16 PM ROUTE SALES SPECIALIST) Sodium 137 135 - 145 mmol/L Comment:Testing performed by : [address] [address] Potassium, pl 4.1 3.3 - 4.9 mmol/L [facility] Comment:Testing performed by : [address] [address] Chloride 103 97 - 110 mmol/L [facility] Comment:Testing performed by : [address], [place]., [address] CO2 24 22 - 32 mmol/L [facility] Comment:Testing performed by : [address] [address] Anion gap 10 2 - 15 mmol/L [facility] Comment:Testing performed by : [address] [address] BUN 11 6 - 25 mg/dL [facility] Comment:Testing performed by : [address] [address] Creatinine 0.57(L) 0.60 - 1.10 mg/dL [facility] Comment:Testing performed by : [address] [address] Glucose 89 70 - 199 mg/dL [facility] Comment: Interpretive Data Fasting glucose >/= 126 [...] was last revised 2022. Testing performed by: [address] [address] Calcium 9.7 8.5 - 10.3 mg/dL [facility] Comment:Testing performed by : [address] [address] Bilirubin, total 0.2 0.1 - 1.2 mg/dL YEVGENIY Comment:Testing performed by : [address] [address] Protein, pl 7.9 6.5 - 8.5 g/dL YEVGENIY Comment:Testing performed by : [address] [address] Albumin 4.4 3.5 - 5.0 g/dL YEVGENIY Comment:Testing performed by : [address] [address] Alk phos 89 40 - 130 Units/L YEVGENIY Comment:Testing performed by : [address] [address] ALT 21 7 - 45 Units/L YEVGENIY Comment:Testing performed by : [address] [address] AST 24 10 - 45 Units/L YEVGENIY Comment:Testing performed by : [address] [address] Blood 12/31/2024 2:16 PM ROUTE SALES SPECIALIST 12/31/2024 2:24 PM ROUTE SALES SPECIALIST Lesley DE LEON LAB BLOOD ORDERABLES Final Resu lt YEVGENIY [address] [facility] Department [place] [address] from Last 3 Months Insurance [facility] Care Teams Automatic Winder Operator Relationship Specialty Start Date End Date Lynsey Tammi Sanchez, MAP COLORER [address] Pediatric Emerg. Dept. [place] [id number] PCP - General Family Medicine 12/31/24
--- OUTSIDE RECORDS SUMMARY | 2025-02-16 16:13 | XMS_ITS | Clinical Summary ---
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 5 Active SYMBICORT 80-4.5 MCG/ACT inhaler 2 puffs 2 (two) times daily. 5 Active vitamin, low iron, 27-0.8 mg tablet Take 1 tablet by mouth daily. Active ondansetron (ZOFRAN-ODT) 4 MG disintegrating tablet Take 1 tablet (4 mg total) by mouth every 8 (eight) hours as needed for Nausea. 20 tablet 5 Active cephALEXin (KEFLEX) 500 MG capsule Take 1 capsule (500 mg total) by mouth 2 (two) times daily for 10 days. 20 capsule 5 02/21/20 25 Active cephALEXin (KEFLEX) 500 MG capsule Take 1 capsule (500 mg total) by mouth 2 (two) times daily for 7 days. 14 capsule 5 02/01/20 25 Active Problems Problem Noted Date Diagnosed Date ([facility]) 05/13/2024 Headache 05/13/2024 Estimated Date of Delivery Comme nts Yes 09/17/2025 Encounters Date Type Department Care Team Description 02/13/2025 8:45 PM CDT - 02/13/2025 10:19 PM CDT Emergency [place] [address] [place] [address] Nacho Recinos MD Vomiting Discharge Disposition: Home or Self Care (Routine Discharge) 02/13/2025 Travel 02/10/2025 9:44 AM CDT - 02/10/2025 10:15 AM CDT Emergency [place] [facility] [address] Kaitlin Colon MD Vomiting Discharge Disposition: Left Against Medical Advice 02/10/2025 Travel 01/24/2025 12:23 PM CDT - 01/24/2025 2:54 PM CDT [facility] [place] [facility] [address] [place] [address] [place] [address] Salty Potts MD Vomiting ; Palpitations Discharge Disposition: Home or Self Care (Routine Discharge) 01/24/2025 Travel 01/21/2025 Telephone [facility] [address] [place] [address] Steph Hightower MD Stress Test 01/21/2025 Scan [facility] [address] [place] [address] Scanned, Doc Pccl Stress Test (SCAN) 01/18/2025 8:06 AM CDT - 01/18/2025 11:59 PM CDT Hospital Encounter [place] [address] [place] [address] Sami Mehta, DO Discharge Disposition: Home or Self Care (Routine Discharge) 01/17/2025 3:47 PM CDT - 01/17/2025 9:05 PM CDT [facility] [place] [facility] [address] [place] [address] Sami Mehta, DO Leg Pain Discharge Disposition: Home or Self Care (Routine Discharge) 01/17/2025 Travel 01/14/2025 1:05 PM CDT - 01/14/2025 11:59 PM CDT Hospital Encounter [facility] [address] [place] [address] [place] [address] Shawn Mcginnis MD Discharge Disposition: Home or Self Care (Routine Discharge) 01/14/2025 Orders Only [facility] [address] [place] [address] [place] [address] Shawn Mcginnis MD 01/13/2025 2:01 PM CDT - 01/13/2025 6:59 PM CDT [facility] [address] [place] [address] [place] [address] Kaitlin Colon MD Complications Discharge Disposition: Home or Self Care (Routine Discharge) 01/13/2025 Travel 12/01/2024 7:33 PM 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 - 12/01/2024 9:34 PM 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 Emergency [place] [facility] [address] [place] [address] [place] [address] Wayne Ledesma MD Body Aches; Cough Discharge [...] Recorded Patient Health Questionnaire-2 Score 0 05/13/2024 [facility] - Occupational Stress Questionnaire Answer [...] Sign Reading Time Taken Comments Blood Pressure 111/68 02/13/2025 9:30 PM CDT Pulse 74 02/13/2025 8:52 PM CDT Temperature 36.2 C (97.1 F) 02/13/2025 8:52 PM CDT Respiratory Rate 18 02/13/2025 8:52 PM CDT Oxygen Saturation 100% 02/13/2025 9:30 PM CDT Inhaled Oxygen Concentration - - Weight 72.1 kg (159 lb) 02/13/2025 8:52 PM CDT Height 165.1 cm (5' 5 ) 02/13/2025 8:52 PM CDT Body Mass Index 26.46 02/13/2025 8:52 PM CDT Plan of Treatment Health Maintenance [...] Procedure Name Priority Date/Time Associated Diagnosis Comments COMPREHENSIVE METABOLIC PANEL STAT 02/13/2025 9:13 PM CDT CBC W/DIFF AUTOMATED STAT 02/13/2025 9:13 PM CDT HC URINALYSIS AUTO W/MICRO STAT 02/13/2025 9:06 PM CDT STREP A RAPID STAT 02/10/2025 9:53 [...] A & B STAT 12/01/2024 7:50 PM 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 CORONAVIRUS (COVID-19) ANTIGEN STAT 12/01/2024 7:50 PM 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 from Last 3 Months Results * (ABNORMAL) COMPREHENSIVE METABOLIC PANEL (02/13/2025 9:13 PM CDT) Only the most recent of3 resultswithin the time period is included. SODIUM S/P/B 137 136 - 145 MMOL/L 02/13/2025 9:44 PM CDT [facility] POTASSIUM S/P/B 3.8 3.5 - 5.1 MMOL/L 02/13/2025 9:44 PM CDT [facility] Comment:MILD HEMOLYSIS, RESU LT MAY BE AFFECTED. CHLORIDE S/P/B 101 98 - 107 MMOL/L 02/13/2025 9:44 PM CDT [facility] CO2 28.8 21.0 - 32.0 MMOL/L 02/13/2025 9:44 PM CDT [facility] GLUCOSE 89 70 - 99 MG/DL 02/13/2025 9:44 PM CDT [facility] Comment: FASTING GLUCOSE 100 TO 125 MG/DL IS CONSISTENT WITH IMPAIRED FASTING GLUCOSE. FASTING GLUCOSE >125 MG/DL IS CONSISTENT WITH DIABETES. RANDOM GLUCOSE >200 MG/DL WITH HYPERGLYCEMIC SYMPTOMS IS CONSISTENT WITH DIABETES. PER ADA GUIDELINES BUN 9 6 - 24 MG/DL 02/13/2025 9:44 PM T [facility] CREATININE S/P/B 0.54(L) 0.55 - 1.02 MG/DL 02/13/2025 9:44 PM T [facility] CALCIUM S/P/B 9.2 8.4 - 10.5 MG/DL 02/13/2025 9:44 PM T [facility] BILIRUBIN TOTAL S/P/B 0.4 0.2 - 1.0 MG/DL 02/13/2025 9:44 PM T [facility] Comment: THIS ASSAY IS NOT RECOMMENDED FOR PATIENTS UNDERGOING TREATMENT WITH ELTROMBOPAG DUE TO THE POTENTIAL FOR FALSELY ELEVATED RESULTS. ALKALINE PHOSPHATASE S/P/B 71 37 - 98 U/L 02/13/2025 9:44 PM T [facility] AST 32 15 - 37 U/L 02/13/2025 9:44 PM [facility] Comment:MILD HEMOLYSIS, RESU LT MAY BE AFFECTED. ALT 23 14 - 59 U/L 02/13/2025 9:44 PM T [facility] TOTAL PROTEIN S/P/B 8.1 6.4 - 8.2 G/DL 02/13/2025 9:44 PM [facility] ALBUMIN S/P/B 3.6 3.4 - 5.0 G/DL 02/13/2025 9:44 PM [facility] ANION GAP 7.2 5.0 - 15.0 MMOL/L 02/13/2025 9:44 PM T [facility] OSMOLALITY (CALC) 282 MOSM/KG 025 9:44 PM [facility] Comment:REFERENCE RANGE NOT ESTABLISHED GFR ESTIMATE >90 >89 ML/MIN/1. 73 M2 02/13/2025 9:44 PM T [facility] GFR NOTES GFR REFERENCE S: 02/13/2025 9:44 PM CDT [facility] Comment: THE ESTIMATED GFR IS CALCULATED [...] ml/min/1.73 m2 G5,KIDNEY FAILURE: <15 ml/min/1.73 m2 02/13/2025 9:13 PM CDT us Nacho Recinos MD LABORATORY Final Result [facility] [address] [place] [address], * (ABNORMAL) CBC W/DIFF AUTOMATED (02/13/2025 9:13 PM CDT) Only the most recent of4 resultswithin the time period is included. WBC 13.49(H) 4.00 - 10.80 x10'3/uL 02/13/2025 9:21 PM CDT [facility] RBC 4.66 4.10 - 5.40 x10'6/uL 02/13/2025 9:21 PM CDT [facility] HGB 12.6 12.0 - 16.0 G/DL 02/13/2025 9:21 PM CDT [facility] HCT 38.5 36.0 - 47.0 % 02/13/2025 9:21 PM CDT [facility] MCV 82.6 78.0 - 100.0 FL 02/13/2025 9:21 PM CDT [facility] MCH 27.0 27.0 - 31.0 PG 02/13/2025 9:21 PM CDT [facility] MCHC 32.7(L) 33.0 - 36.0 G/DL 02/13/2025 9:21 PM CDT [facility] RDW 12.4 11.5 - 14.5 % 02/13/2025 9:21 PM CDT [facility] PLT 347 150 - 350 x10'3/uL 02/13/2025 9:21 PM CDT [facility] MPV 9.3 7.4 - 10.4 FL 02/13/2025 9:21 PM CDT [facility] CBC COMMENT NORMAL REFERENCE RANGE NOT ESTABLISHED FOR THE PROPORTIONAL LEUKOCYTE DIFFERENTIAL. 02/13/2025 9:21 PM CDT [facility] NEUTROPHILS % 71.1 % 02/13/2025 9:21 PM CDT [facility] LYMPHOCYTES % 21.2 % 02/13/2025 9:21 PM CDT [facility] MONOCYTES % 6.4 % 02/13/2025 9:21 PM CDT [facility] EOSINOPHILS % 0.7 % 02/13/2025 9:21 PM CDT [facility] BASOPHILS % 0.2 % 02/13/2025 9:21 PM CDT [facility] IMMATURE GRANS % 0.4 % 02/14/20 9:21 PM CDT [facility] NRBC % 0.0 % 02/13/2025 9:21 PM CDT [facility] ABS. NEUTROPHILS 9.60(H) 1.60 - 8.30 x10'3/uL 02/13/2025 9:21 PM CDT [facility] ABS. LYMPHOCYTES 2.86 0.80 - 4.70 x10'3/uL 02/13/2025 9:21 PM CDT [facility] ABS. MONOCYTES 0.86 0.00 - 1.50 x10'3/uL 02/13/2025 9:21 PM CDT [facility] ABS. EOSINOPHILS 0.09 0.00 - 0.40 x10'3/uL 02/13/2025 9:21 PM CDT [facility] ABS. BASOPHILS 0.03 0.00 - 0.20 x10'3/uL 02/13/2025 9:21 PM CDT [facility] ABS. IMMATURE GRANULOCYTES 0.05(H) 0.00 - 0.03 x10'3/uL 02/13/2025 9:21 PM CDT [facility] ABS. NUCLEATED RBC'S 0.00 0.00 - 0.01 x10'3/uL 02/13/2025 9:21 PM CDT [facility] 02/13/2025 9:13 PM CDT us Nacho Recinos MD LABORATORY Final Result [facility] [address] [place] [address], * (ABNORMAL) URINALYSIS (02/13/2025 9:06 PM CDT) Only the most recent of3 resultswithin the time period is included. COLOR (U) YELLOW 02/13/2025 9:41 PM CDT [facility] TRANSPARENCY CLEAR 02/13/2025 9:41 PM CDT [facility] SPECIFIC GRAVITY (U) 1.030(H) 1.000 - 1.025 02/13/2025 9:41 PM CDT [facility] Comment:EQUAL TO OR GREATER THAN U PH 5.5 5.0 - 8.0 02/13/2025 9:41 PM CDT [facility] LEUKOCYTES (U) NEGATIVE NEGATIVE 02/13/2025 9:41 PM CDT [facility] NITRITES NEGATIVE NEGATIVE 02/13/2025 9:41 PM CDT [facility] PROTEIN RANDOM (U) TRACE(A) NEGATIVE 02/13/2025 9:41 PM CDT [facility] GLUCOSE (U) NEGATIVE NEGATIVE 02/13/2025 9:41 PM CDT [facility] KETONES MG/DL (U) 3+(A) NEGATIVE 02/13/2025 9:41 PM CDT [facility] UROBILINOGEN 0.2 <1.0 EU/DL 02/13/2025 9:41 PM CDT [facility] BILIRUBIN (U) NEGATIVE NEGATIVE 02/13/2025 9:41 PM CDT [facility] BLOOD (U) NEGATIVE NEGATIVE 02/13/2025 9:41 PM CDT [facility] WBC/HPF 0-5 0 - 5 /HPF 02/13/2025 9:41 PM CDT [facility] RBC/HPF 0-5 0 - 5 /HPF 02/13/2025 9:41 PM CDT [facility] EPI/LPF MANY /LPF 02/13/2025 9:41 PM CDT [facility] MUCUS PRESENT 02/13/2025 9:41 PM CDT [facility] URINE SPECIMEN OBTAINED BY CLEAN CATCH PROCEDURE / Unknown 02/13/2025 9:06 PM CDT us Nachovitor Recinos MD URINE ORDERABLES Final Result [facility] [address] [place] [address], * CORONAVIRUS (COVID-19) ANTIGEN (02/10/2025 9:53 AM CDT) Only the most recent of2 resultswithin the time period is included. CORONAVIRUS ANTIGEN IA NEGATIVE NEGATIVE 02/10/2025 10:41 AM CDT [facility] Comment: NEGATIVE RESULTS DO NOT RULE [...] SPECIMEN TYPE NASAL 02/10/2025 9:56 AM CDT [facility] NASAL NASAL STRUCTURE / Unknown 02/10/2025 9:53 AM CDT Kaitlin Colon MD MICROBIOLOGY - GENERAL JOSE CORONADO Final Result Performing Organization Address City/[facility]/ZIP Co de Phone Number [facility] [address] [place] [address], * INFLUENZA A & B (02/10/2025 9:53 AM CDT) Only the most recent of2 resultswithin the time period is included. SPECIMEN TYPE (INFLUENZA) NASOPHARYNGEAL SWAB 02/10/2025 9:56 AM CDT [facility] INFLUENZA A NEGATIVE NEGATIVE 02/10/2025 10:41 AM CDT [facility] INFLUENZA B NEGATIVE NEGATIVE 02/10/2025 10:41 AM CDT [facility] Comment: A NEGATIVE RESULT DOES NOT EXCLUDE INFLUENZA VIRUS INFECTION. IF INFLUENZA IS CIRCULATING IN YOUR COMMUNITY, A DIAGNOSIS OF INFLUENZA SHOULD BE CONSIDERED BASED ON A PATIENT'S CLINICAL PRESENTATION AND EMPIRIC ANTIVIRAL TREATMENT SHOULD BE CONSIDERED IF INDICATED. NASOPHARYNGEAL SWAB / Unknown 02/10/2025 9:53 AM CDT us Kaitlin Colon MD MICROBIOLOGY - GENERAL JOSE CORONADO Final Result Performing Organization Address [facility] Co de Phone Number [facility] [address] [place] [address], [place] [phone] * (ABNORMAL) STREP A RAPID (02/10/2025 9:53 AM CDT) SPECIMEN SOURCE THROAT 02/10/2025 9:56 AM CDT [facility] RAPID STREP TEST POSITIVE(A) NEGATIVE 02/10/2025 10:38 AM CDT [facility] Comment: CALLED TO MATHEW DUFFY 1035 02/10/25 AFW READ BACK AND VERIFIED STRUCTURE OF ANTERIOR PORTION OF NECK / Unknown 02/10/2025 9:53 AM CDT us Kaitlin Colon MD MICROBIOLOGY - GENERAL JOSE CORONADO Final Result [facility] [address] [place] [address], * XR CHEST PORTABLE (01/24/2025 1:48 PM CDT) Anatomical Region Laterality Modality Chest Radiographic Jazmin ging 01/24/2025 1:50 PM CDT Impressions 01/24/2025 1:51 PM CDT IMPRESSION: No significant change. No acute disease. Referred By: Interpreted By: Paulino Mitchell MD, 01/24/2025 1:50 PM Narrative 01/24/2025 1:51 PM CDT [place] [id number] [place] [address] Examination: Portable chest. Exam time: 1342 hours. Clinical history: Left-sided chest pain. Palpitations. Comparison: 05/18/2023. Technique: AP upright view. Findings: The cardiomediastinal silhouette is stable. The heart remains within normal limits for size. Pulmonary vascularity is within normal limits. The lungs and pleural spaces remain free of any active process. The visualized bony thorax is unremarkable. Procedure Note Paulino Mitchell MD - 01/24/2025 [place] [id number] [place] [address] Examination: Portable chest. Exam time: 1342 hours. [...] MD GENERAL IMAGING Final Resul t * TEST URINE (01/24/2025 1:20 PM CDT) URINE HCG TEST POSITIVE 01/24/2025 1:30 PM CDT [facility] SPECIFIC GRAVITY >1.030 01/24/2025 1:30 PM CDT [facility] URINE SPECIMEN FROM URETHRA / Unknown 01/24/2025 1:20 PM CDT us Salty Potts MD URINE ORDERABLES Final Resu lt Performing Organization Address [facility]/ZIP Co de Phone Number [facility] [address] [place] [address], * TROPONIN, QUANT (01/24/2025 1:06 PM CDT) Only the most recent of3 resultswithin the time period is included. TROPONIN I HIGH SENSITIVITY 4 0 - 51 ng/L 01/24/2025 1:34 PM CDT [facility] 01/24/2025 1:06 PM CDT us Salty Potts MD LABORATORY Final Resul t Performing Organization Address [facility] Co de Phone Number [facility] [address] [place] [address], [place] [phone] * LIPASE (01/24/2025 1:06 PM CDT) LIPASE 25 16 - 77 UNITS/L 01/24/2025 1:34 PM CDT [facility] 01/24/2025 1:06 PM CDT us Salty Potts MD LABORATORY Final Resul t Performing Organization Address City/[facility]/ZIP Co de Phone Number [facility] [address] [place] [address], [place] [phone] * ECG 12 lead (01/24/2025 12:48 PM CDT) Only the most recent of2 resultswithin the time period is included. 01/24/2025 12:4 8 PM CDT Narrative [facility] - 01/24/2025 1:39 PM [address]T [address] 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2000 Requested By: SALTY POTTS Order Number: [id number] Fifi QUIGLEY: Logan Wong Measurements Intervals Adams Rate: 79 P: 71 WV: 147 QRS: 52 QRSD: 80 T: 45 QT: 337 QTc: 388 Interpretive Statements SINUS RHYTHM Salty Potts MD ECG ORDERABLES Final Resul t Performing Organization Address City/[facility]/ZIP Co de Phone Number [facility] * STRESS TEST (01/21/2025) us Doc Pccl Scanned SCANNING Final Result Performing Organization Address [facility] Co de Phone Number [facility] ONBASE * USV AKOSUA DUPLEX LOW EXT ADAM (01/18/2025 8:57 AM CDT) Anatomical Region Laterality Modality Extremity Ultrasound 01/18/2025 9:23 AM CDT Impressions 01/18/2025 9:24 AM CDT IMPRESSION: No evidence of deep venous thrombosis. Ordered By: SAMI MEHTA Interpreted By: Paulino Mitchell MD, 01/18/2025 9:23 AM Narrative 01/18/2025 9:24 AM CDT [address] [place] [address] Examination: Bilateral lower extremity venous color Doppler [...] Procedure Note Paulino Mitchell MD - 01/18/[address] [place] [address] Examination: Bilateral lower extremity venous color Doppler [...] 7:32 PM Narrative 01/17/2025 7:34 PM CDT [address] [place] [address] CTA CHEST WITH CONTRAST PULMONARY EMBOLISM PROTOCOL [...] Procedure Note German Chang MD - 01/17/[address] [place] [address] CTA CHEST WITH CONTRAST PULMONARY EMBOLISM PROTOCOL [...] - 500 ng{FEU}/mL 01/17/2025 6:10 PM CDT [facility] Comment: CALLED TO MATHEW DUFFY RN [...] CDT Sami Mehta DO LABORATORY Final Result Performing Organization Address [facility] Co de Phone Number [facility] [address] [place] [address], * (ABNORMAL) HCG QUANT (SERUM)-CHORIONIC GONADOTROPIN (01/14/2025 1:15 PM CDT) Only the most recent of2 resultswithin the time period is included. HCG QUANTITATIVE 5,590(H) 0.0 - 6.0 MIU/ML 01/14/2025 2:16 PM CDT [facility] Comment: WEEKS OF REFERENCE RANGES NON- [...] Shawn Mcginnis MD LABORATORY Final Resu lt Performing Organization Address [facility] Co de Phone Number [facility] [address] [place] [address], [place] [phone] * US OB TRANSVAG (01/13/2025 6:37 PM [...] 5:28 PM Narrative 01/13/2025 5:39 PM [address]T [address] [place] [address] EXAMINATION: US OB TRANSVAG HISTORY: Abdominal pain, [...] Procedure Note Taiwo Haddad MD - 01/13/[address] [place] [address] EXAMINATION: US OB TRANSVAG HISTORY: Abdominal pain, [...] interstitialectopic gestation. Recommend close clinical follow-up and szsgc-skniihofnw-[id number] ultrasound as discussed above. 2. Estimated gestational age by mean sac diameter is 5 weeks, 2 days. 3. No evidence of ovarian torsion. 4. Trace free pelvic fluid. Referred By: Interpreted By: Taiwo Haddad MD, 01/13/2025 5:28 PM us Kaitlin Colon MD ULTRASOUND Final Resul t * TYPE AND SCREEN (01/13/2025 4:02 PM CDT) ABO/RH B POSITIVE 01/13/2025 4:56 PM CDT [facility] ANTIBODY SCREEN NEGATIVE 01/13/2025 4:56 PM CDT [facility] SAMPLE EXPIRATION 01/16/2025,2 359 01/13/2025 4:56 PM CDT [facility] 01/13/2025 4:02 PM CDT Kaitlin Colon MD BLOOD BANK TEST ORDERABLES Final Result [facility] [address] [place] [address], * CULTURE URINE (01/13/2025 3:43 PM CDT) SPEC DESCRIPTION URINE CLEAN CATCH 01/13/2025 3:49 PM CDT [facility] SPECIAL REQUESTS NO SPECIAL REQUEST 01/13/2025 3:49 PM CDT [facility] CULTURE RESULT NO GROWTH (< OR = 1,000 CFU/ML) 01/15/2025 10:12 AM CDT [facility] URINE SPECIMEN OBTAINED BY CLEAN CATCH PROCEDURE / Unknown 01/13/2025 3:43 PM CDT 01/13/2025 3:51 PM CDT Kaitlin Colon MD MICROBIOLOGY - GENERAL [facility] Final Result [facility] [address] [place] [address], [place] [phone] [facility] [address] [place], [place] [address] [address], * (ABNORMAL) BASIC METABOLIC PANEL (01/13/2025 3:23 PM CDT) SODIUM S/P/B 136 136 - 145 MMOL/L 01/13/2025 4:22 PM [facility] POTASSIUM S/P/B 3.6 3.5 - 5.1 MMOL/L 01/13/2025 4:22 PM [facility] CHLORIDE S/P/B 101 98 - 107 MMOL/L 01/13/2025 4:22 PM [facility] CO2 27.7 21.0 - 32.0 MMOL/L 01/13/2025 4:22 PM [facility] GLUCOSE 106(H) 70 - 99 MG/DL 01/13/2025 4:22 PM [facility] Comment: FASTING GLUCOSE 100 TO 125 MG/DL IS CONSISTENT WITH IMPAIRED FASTING GLUCOSE. FASTING GLUCOSE >125 MG/DL IS CONSISTENT WITH DIABETES. RANDOM GLUCOSE >200 MG/DL WITH HYPERGLYCEMIC SYMPTOMS IS CONSISTENT WITH DIABETES. PER ADA GUIDELINES BUN 11 6 - 24 MG/DL 01/13/2025 4:22 PM [facility] CREATININE S/P/B 0.65 0.55 - 1.02 MG/DL 01/13/2025 4:22 PM [facility] CALCIUM S/P/B 9.0 8.4 - 10.5 MG/DL 01/13/2025 4:22 PM [facility] ANION GAP 7.3 5.0 - 15.0 MMOL/L 01/13/2025 4:22 PM [facility] OSMOLALITY (CALC) 282 MOSM/KG 025 4:22 PM [facility] Comment:REFERENCE RANGE NOT ESTABLISHED GFR ESTIMATE >90 >89 ML/MIN/1. 73 M2 01/13/2025 4:22 PM [facility] GFR NOTES GFR REFERENCE S: 01/13/2025 4:22 PM [facility] Comment: THE ESTIMATED GFR IS [...] Kaitlin Colon MD LABORATORY Final Resul t [facility] [address] [place] [address], from Last 3 Months Insurance FLOOD Care Teams Vehicle Fuel Systems Converter Relationship Specialty Start Date End Date Tanner Paige MD [address] [place] [address] PCP - General FAMILY PRACTICE 07/01/24 Steph Hightower MD [address] [place] [address] Consulting Physician CARDIOVASCULAR DISEASE 11/07/22 Janell Celaya APNP [address] [place] [address] NURSE PRACTITIONER 12/01/24
--- OUTSIDE RECORDS SUMMARY | 2025-02-16 16:40 | XMS_ITS | Clinical Summary ---
Author Organization [facility] Address Formerly [facility] [place] [address] Care Team Providers Care Bilingual Administrative Assistant Name Role Phone Steph Hightower MD Unavailable Tanner Paige MD Primary Care Provider Janell Celaya APNP Unavailable [phone] Allergies Active Allergy Reactions Criticality Noted Date [...] Active Problems Problem Noted Date Diagnosed Date ([facility]/HCC) 05/13/2024 Headache 05/13/2024 Estimated Date of Delivery Comme nts Yes 09/17/2025 Encounters Date Type Department Care Team Description 02/13/2025 8:45 PM CDT - 02/13/2025 10:19 PM CDT Emergency [facility] [address] [place] [address] Nacho Recinos MD Vomiting Discharge Disposition: Home or Self Care (Routine Discharge) 02/13/2025 Travel 02/10/2025 9:44 AM CDT - 02/10/2025 10:15 AM CDT Emergency [facility] [place] [address] Kaitlin Colon MD Vomiting Discharge Disposition: Left Against Medical Advice 02/10/2025 Travel 01/24/2025 12:23 PM CDT - 01/24/2025 2:54 PM CDT Emergency [facility] [address] [place] [address] [place] [address] Salty Potts MD Vomiting ; Palpitations Discharge Disposition: Home or Self Care (Routine Discharge) 01/24/2025 Travel 01/21/2025 Telephone [facility] [address] [place] [address] Steph Hightower MD Stress Test 01/21/2025 Scan [facility] [address] [place] [address] Scanned, Doc Pccl Stress Test (SCAN) 01/18/2025 8:06 AM CDT - 01/18/2025 11:59 PM CDT Hospital Encounter [facility] [address] [place] [address] Sami Mehta, DO Discharge Disposition: Home or Self Care (Routine Discharge) 01/17/2025 3:47 PM CDT - 01/17/2025 9:05 PM CDT Emergency [facility] [address] [place] [address] Sami Mehta, DO Leg Pain Discharge Disposition: Home or Self Care (Routine Discharge) 01/17/2025 Travel 01/14/2025 1:05 PM CDT - 01/14/2025 11:59 PM CDT Hospital Encounter [facility] [address] [place] [address] [place] [address] Shawn Mcginnis MD Discharge Disposition: Home or Self Care (Routine Discharge) 01/14/2025 Orders Only [facility] [address] [place] [address] [place] [address] Shawn Mcginnis MD 01/13/2025 2:01 PM CDT - 01/13/2025 6:59 PM CDT Emergency [facility] [address] [place] [address] [place] [address] Kaitlin Colon MD Complications Discharge Disposition: Home or Self Care (Routine Discharge) 01/13/2025 Travel 12/01/2024 7:33 PM OUTREACH ANALYST - 12/01/2024 9:34 PM OUTREACH ANALYST Emergency [facility] [address] [place] [address] [place] [address] Wayne Ledesma MD Body Aches; Cough Discharge [...] Recorded Patient Health Questionnaire-2 Score 0 05/13/2024 [facility] [place] - Occupational Stress Questionnaire Answer Date Recorded [...] A & B STAT 12/01/2024 7:50 PM OUTREACH ANALYST CORONAVIRUS (COVID-19) ANTIGEN STAT 12/01/2024 7:50 PM OUTREACH ANALYST from Last 3 Months Results * (ABNORMAL) COMPREHENSIVE METABOLIC PANEL (02/13/2025 9:13 PM CDT) Only the most recent of3 resultswithin the time period is included. SODIUM S/P/B 137 136 - 145 MMOL/L 02/13/2025 9:44 PM [address]T [facility] POTASSIUM S/P/B 3.8 3.5 - 5.1 MMOL/L 02/13/2025 9:44 PM CDT [facility] Comment:MILD HEMOLYSIS, RESU LT MAY BE AFFECTED. CHLORIDE S/P/B 101 98 - 107 MMOL/L 02/13/2025 9:44 PM CD[address] [facility] CO2 28.8 21.0 - 32.0 MMOL/L 02/13/2025 9:44 PM CDT [facility] GLUCOSE 89 70 - 99 MG/DL 02/13/2025 9:44 PM CDT [facility] Comment: FASTING GLUCOSE 100 TO 125 MG/DL IS CONSISTENT WITH IMPAIRED FASTING GLUCOSE. FASTING GLUCOSE >125 MG/DL IS CONSISTENT WITH DIABETES. RANDOM GLUCOSE >200 MG/DL WITH HYPERGLYCEMIC SYMPTOMS IS CONSISTENT WITH DIABETES. PER ADA GUIDELINES BUN 9 6 - 24 MG/DL 02/13/2025 9:[address] PM [address] [facility] CREATININE S/P/B 0.54(L) 0.55 - 1.02 MG/DL 02/13/2025 9:44 PM T [facility] CALCIUM S/P/B 9.2 8.4 - 10.5 MG/DL 02/13/2025 9:44 PM T [facility] BILIRUBIN TOTAL S/P/B 0.4 0.2 - 1.0 MG/DL 02/13/2025 9:44 PM T [facility] Comment: THIS ASSAY IS NOT RECOMMENDED FOR PATIENTS UNDERGOING TREATMENT WITH ELTROMBOPAG DUE TO THE POTENTIAL FOR FALSELY ELEVATED RESULTS. ALKALINE PHOSPHATASE S/P/B 71 37 - 98 U/L 02/13/2025 9:44 PM T [facility] AST 32 15 - 37 U/L 02/13/2025 9:44 PM [facility] Comment:MILD HEMOLYSIS, RESU LT MAY BE AFFECTED. ALT 23 14 - 59 U/L 02/13/2025 9:44 PM [address] [facility] TOTAL PROTEIN S/P/B 8.1 6.4 - 8.2 G/DL 02/13/2025 9:44 PM [facility] ALBUMIN S/P/B 3.6 3.4 - 5.0 G/DL 02/13/2025 9:44 PM [facility] ANION GAP 7.2 5.0 - 15.0 MMOL/L 02/13/2025 9:44 PM T [facility] OSMOLALITY (CALC) 282 MOSM/KG 025 9:44 PM [facility] Comment:REFERENCE RANGE NOT ESTABLISHED GFR ESTIMATE >90 >89 ML/MIN/1. 73 M2 02/13/2025 9:44 PM T [facility] GFR NOTES GFR REFERENCE S: 02/13/2025 9:44 PM CDT [facility] Comment: THE ESTIMATED GFR IS [...] us Nacho Recinos MD LABORATORY Final Result [facility] [address] [place] [address], * (ABNORMAL) CBC W/DIFF AUTOMATED (02/13/2025 9:13 PM CDT) Only the most recent of4 resultswithin the time period is included. WBC 13.49(H) 4.00 - 10.80 x10'3/uL 02/13/2025 9:21 PM [address] [facility] RBC 4.66 4.10 - 5.40 x10'6/uL 02/13/2025 9:21 PM CDT [facility] HGB 12.6 12.0 - 16.0 G/DL 02/13/2025 9:21 PM CD[address] [facility] HCT 38.5 36.0 - 47.0 % 02/13/2025 9:21 PM CD[address] [facility] MCV 82.6 78.0 - 100.0 FL 02/13/2025 9:21 PM CD[address] [facility] MCH 27.0 27.0 - 31.0 PG 02/13/2025 9:21 PM CD[address] [facility] MCHC 32.7(L) 33.0 - 36.0 G/DL 02/13/2025 9:21 PM CD[address] [facility] RDW 12.4 11.5 - 14.5 % 02/13/2025 9:21 PM CDT [facility] PLT 347 150 - 350 x10'3/uL 02/13/2025 9:21 PM CDT [facility] MPV 9.3 7.4 - 10.4 FL 02/13/2025 9:21 PM CDT [facility] CBC COMMENT NORMAL REFERENCE RANGE NOT ESTABLISHED FOR THE PROPORTIONAL LEUKOCYTE DIFFERENTIAL. 02/13/2025 9:[address] PM [address] [facility] NEUTROPHILS % 71.1 % 02/13/2025 9:21 PM [address] [facility] LYMPHOCYTES % 21.2 % 02/13/2025 9:21 PM [address] [facility] MONOCYTES % 6.4 % 02/13/2025 9:21 PM [address] [facility] EOSINOPHILS % 0.7 % 02/13/2025 9:21 PM [address] [facility] BASOPHILS % 0.2 % 02/13/2025 9:21 PM CD[address] [facility] IMMATURE GRANS % 0.4 % 02/14/20 9:[address] [facility] NRBC % 0.0 % 02/13/2025 9:21 PM [address] [facility] ABS. NEUTROPHILS 9.60(H) 1.60 - 8.30 x10'3/uL 02/13/2025 9:[address] PM [address] [facility] ABS. LYMPHOCYTES 2.86 0.80 - 4.70 x10'3/uL 02/13/2025 9:21 PM [address] [facility] ABS. MONOCYTES 0.86 0.00 - 1.50 x10'3/uL 02/13/2025 9:21 PM [address] [facility] ABS. EOSINOPHILS 0.09 0.00 - 0.40 x10'3/uL 02/13/2025 9:21 PM [address] [facility] ABS. BASOPHILS 0.03 0.00 - 0.20 x10'3/uL 02/13/2025 9:21 PM [address] [facility] ABS. IMMATURE GRANULOCYTES 0.05(H) 0.00 - 0.03 x10'3/uL 02/13/2025 9:21 PM [address] [facility] ABS. NUCLEATED RBC'S 0.00 0.00 - 0.01 x10'3/uL 02/13/2025 9:[address] PM [address] [facility] 02/13/2025 9:13 PM CDT us Nacho Recinos MD LABORATORY Final Result [facility] [address] [place] [address], * (ABNORMAL) URINALYSIS (02/13/2025 9:06 PM CDT) Only the most recent of3 resultswithin the time period is included. COLOR (U) YELLOW 02/13/2025 9:41 PM CD[address] [facility] TRANSPARENCY CLEAR 02/13/2025 9:41 PM CD[address] [facility] SPECIFIC GRAVITY (U) 1.030(H) 1.000 - 1.025 02/13/2025 9:41 PM CDT [facility] Comment:EQUAL TO OR GREATER THAN U PH 5.5 5.0 - 8.0 02/13/2025 9:41 PM CD[address] [facility] LEUKOCYTES (U) NEGATIVE NEGATIVE 02/13/2025 9:41 PM CDT [facility] NITRITES NEGATIVE NEGATIVE 02/13/2025 9:41 PM CDT [facility] PROTEIN RANDOM (U) TRACE(A) NEGATIVE 02/13/2025 9:41 PM CD[address] [facility] GLUCOSE (U) NEGATIVE NEGATIVE 02/13/2025 9:41 PM CDT [facility] KETONES MG/DL (U) 3+(A) NEGATIVE 02/13/2025 9:41 PM [address] [facility] UROBILINOGEN 0.2 <1.0 EU/DL 02/13/2025 9:[address] PM [address] [facility] BILIRUBIN (U) NEGATIVE NEGATIVE 02/13/2025 9:41 PM [address] [facility] BLOOD (U) NEGATIVE NEGATIVE 02/13/2025 9:41 PM CDT [facility] WBC/HPF 0-5 0 - 5 /HPF 02/13/2025 9:41 PM [address] [facility] RBC/HPF 0-5 0 - 5 /HPF 02/13/2025 9:41 PM CD[address] [facility] EPI/LPF MANY /LPF 02/13/2025 9:41 PM CD[address] [facility] MUCUS PRESENT 02/13/2025 9:41 PM [address] [facility] URINE SPECIMEN OBTAINED BY CLEAN CATCH PROCEDURE / Unknown 02/13/2025 9:06 PM CDT us Nachovitor Recinos MD URINE ORDERABLES Final Result [facility] [address] [place] [address], * CORONAVIRUS (COVID-19) ANTIGEN (02/10/2025 9:53 AM CDT) Only the most recent of2 resultswithin the time period is included. CORONAVIRUS ANTIGEN IA NEGATIVE NEGATIVE 02/10/2025 10:41 AM CDT [facility] Comment: NEGATIVE RESULTS DO [...] SPECIMEN TYPE NASAL 02/10/2025 9:56 AM CDT [facility] NASAL NASAL STRUCTURE / Unknown 02/10/2025 9:53 AM CDT Kaitlin Colon MD MICROBIOLOGY - GENERAL JOSE CORONADO Final Result Performing Organization Address City/[facility]/ZIP Co de Phone Number [facility] [address] [place] [address], * INFLUENZA A & B (02/10/2025 9:53 AM CDT) Only the most recent of2 resultswithin the time period is included. SPECIMEN TYPE (INFLUENZA) NASOPHARYNGEAL SWAB 02/10/2025 9:56 AM CDT [facility] INFLUENZA A NEGATIVE NEGATIVE 02/10/2025 10:41 AM CDT [facility] INFLUENZA B NEGATIVE NEGATIVE 02/10/2025 10:41 AM CDT [facility] Comment: A NEGATIVE RESULT [...] JOSE CORONADO Final Result Performing Organization Address [facility] Co de Phone Number [facility] [address] [place] [address], [place] [phone] * (ABNORMAL) STREP A RAPID (02/10/2025 9:53 AM CDT) SPECIMEN SOURCE THROAT 02/10/2025 9:56 AM CDT [facility] RAPID STREP TEST POSITIVE(A) NEGATIVE 02/10/2025 10:38 AM CDT [facility] Comment: CALLED TO MATHEW DUFFY 1035 02/10/25 AFW READ BACK AND VERIFIED STRUCTURE OF ANTERIOR PORTION OF NECK / Unknown 02/10/2025 9:53 AM CDT us Kaitlin Colon MD MICROBIOLOGY - GENERAL JOSE CORONADO Final Result [facility] [address] [place] [address], * XR CHEST PORTABLE (01/24/2025 1:48 PM CDT) Anatomical Region Laterality Modality Chest Radiographic Jazmin ging 01/24/2025 1:50 PM CDT Impressions 01/24/2025 1:51 PM CDT IMPRESSION: No significant change. No acute disease. Referred By: Interpreted By: Paulino Mitchell MD, 01/24/2025 1:50 PM Narrative 01/24/2025 1:51 PM CDT [place] [address] [facility] [place] [address] Examination: Portable chest. Exam time: 1342 hours. Clinical history: Left-sided chest pain. Palpitations. Comparison: 05/18/2023. Technique: AP upright view. Findings: The cardiomediastinal silhouette is stable. The heart remains within normal limits for size. Pulmonary vascularity is within normal limits. The lungs and pleural spaces remain free of any active process. The visualized bony thorax is unremarkable. Procedure Note Paulino Mitchell MD - 01/24/2025 [place] [address] [facility] [place] [address] Examination: Portable chest. Exam time: 1342 hours. [...] HCG TEST POSITIVE 01/24/2025 1:30 PM [address] [facility] SPECIFIC GRAVITY >1.030 01/24/2025 1:30 PM [address] [facility] URINE SPECIMEN FROM URETHRA / Unknown 01/24/2025 1:20 PM CDT us Salty Potts MD URINE ORDERABLES Final Resu lt Performing Organization Address [facility]/ZIP Co de Phone Number [facility] [address] [place] [address], * TROPONIN, QUANT (01/24/2025 1:06 PM CDT) Only the most recent of3 resultswithin the time period is included. TROPONIN I HIGH SENSITIVITY 4 0 - 51 ng/L 01/24/2025 1:[address] [facility] 01/24/2025 1:06 PM CDT us Salty Potts MD LABORATORY Final Resul t Performing Organization Address [facility] Co de Phone Number [facility] [address] [place] [address], [place] [phone] * LIPASE (01/24/2025 1:06 PM CDT) LIPASE 25 16 - 77 UNITS/L 01/24/2025 1:34 PM [address] [facility] 01/24/2025 1:06 PM CDT us Salty Potts MD LABORATORY Final Resul t Performing Organization Address City/[facility]/ZIP Co de Phone Number [facility] [address] [place] [address], [place] [phone] * ECG 12 lead (01/24/2025 12:48 PM CDT) Only the most recent of2 resultswithin the time period is included. 01/24/2025 12:4 8 PM CDT Narrative [facility] - 01/24/2025 1:39 PM [address]T [address] [place] [address] Test Date: 2025-01-24 Pat Name: LIBRADO [facility] Department: 3 Room: EXAM 404 Gender: Female Office Clerk Assistant: : 2000 Requested By: SALTY POTTS Order Number: [id number] Fifi QUIGLEY: Logan Wong Measurements Intervals Alloway Rate: 79 P: 71 OH: 147 QRS: 52 QRSD: 80 T: 45 QT: 337 QTc: 388 Interpretive Statements SINUS RHYTHM Procedure Note Logan Wong MD - 01/24/[address] [place] [address] Test Date: 2025-01-24 Pat Name: LIBRADO MEJIA Department: 3 Room: EXAM 404 Gender: Female Office Clerk Assistant: : 2000 Requested By: SALTY POTTS Order Number: [id number] Fifi QUIGLEY: Logan Wong Measurements Intervals Alloway Rate: 79 P: 71 OH: 147 QRS: 52 QRSD: 80 T: 45 QT: 337 QTc: 388 Interpretive Statements SINUS RHYTHM Salty Potts MD ECG ORDERABLES Final Resul t Performing Organization Address City/[facility]/ZIP Co de Phone Number [facility] * STRESS TEST (01/21/2025) us Doc Pccl Scanned SCANNING Final Result Performing Organization Address [facility] Co de Phone Number [facility] * USV AKOSUA DUPLEX LOW EXT ADAM (01/18/2025 8:57 AM CDT) Anatomical Region Laterality Modality Extremity Ultrasound 01/18/2025 9:23 AM CDT Impressions 01/18/2025 9:24 AM CDT IMPRESSION: No evidence of deep venous thrombosis. Ordered By: SAMI MEHTA Interpreted By: Paulino Mitchell MD, 01/18/2025 9:23 AM Narrative 01/18/2025 9:24 AM CDT [address] [place] [address] Examination: Bilateral lower extremity venous color Doppler [...] Procedure Note Paulino Mitchell MD - 01/18/[address] [place] [address] Examination: Bilateral lower extremity venous color Doppler [...] 7:32 PM Narrative 01/17/2025 7:34 PM CDT [address] [place] [address] CTA CHEST WITH CONTRAST PULMONARY EMBOLISM PROTOCOL [...] Procedure Note German Chang MD - 01/17/[address] [place] [address] CTA CHEST WITH CONTRAST PULMONARY EMBOLISM PROTOCOL [...] - 500 ng{FEU}/mL 01/17/2025 6:10 PM CDT [facility] Comment: CALLED TO MATHEW DUFFY [...] DO LABORATORY Final Result Performing Organization Address [facility] Co de Phone Number [facility] [address] [place] [address], * (ABNORMAL) HCG QUANT (SERUM)-CHORIONIC GONADOTROPIN (01/14/2025 1:15 PM CDT) Only the most recent of2 resultswithin the time period is included. HCG QUANTITATIVE 5,590(H) 0.0 - 6.0 MIU/ML 01/14/2025 2:[address] [facility] Comment: WEEKS OF REFERENCE RANGES [...] LABORATORY Final Resu lt Performing Organization Address [facility] Co de Phone Number [facility] [address] [place] [address], [place] [phone] * US OB TRANSVAG (01/13/2025 6:37 PM [...] 5:28 PM Narrative 01/13/2025 5:39 PM CDT [address] [place] [address] EXAMINATION: US OB TRANSVAG HISTORY: Abdominal pain, [...] Procedure Note Taiwo Haddad MD - 01/13/[address] [place] [address] EXAMINATION: US OB TRANSVAG HISTORY: Abdominal pain, [...] interstitialectopic gestation. Recommend close clinical follow-up and [id number] ultrasound as discussed above. 2. Estimated gestational age by mean sac diameter is 5 weeks, 2 days. 3. No evidence of ovarian torsion. 4. Trace free pelvic fluid. Referred By: Interpreted By: Taiwo Haddad MD, 01/13/2025 5:28 PM us Kaitlin Colon MD ULTRASOUND Final Resul t * TYPE AND SCREEN (01/13/2025 4:02 PM CDT) ABO/RH B POSITIVE 01/13/2025 4:[address] [facility] ANTIBODY SCREEN NEGATIVE 01/13/2025 4:56 [address] [facility] SAMPLE EXPIRATION 01/16/2025,2 359 01/13/2025 4:[address] [facility] 01/13/2025 4:02 PM CDT Kaitlin Colon MD BLOOD BANK TEST ORDERABLES Final Result [facility] [address] [place] [address], * CULTURE URINE (01/13/2025 3:43 PM CDT) SPEC DESCRIPTION URINE CLEAN CATCH 01/13/2025 3:[address] [facility] SPECIAL REQUESTS NO SPECIAL REQUEST 01/13/2025 3:49 PM CD[address] [facility] CULTURE RESULT NO GROWTH (< OR = 1,000 CFU/ML) 01/15/2025 10:12 AM CDT [facility] URINE SPECIMEN OBTAINED BY CLEAN CATCH PROCEDURE / Unknown 01/13/2025 3:43 PM CDT 01/13/2025 3:51 PM CDT Kaitlin Colon MD MICROBIOLOGY - GENERAL [facility] Final Result [facility] [address] [place] [address], [place] [id number] [facility] [address] [place], [place] [address] [address], * (ABNORMAL) BASIC METABOLIC PANEL (01/13/2025 3:23 PM CDT) SODIUM S/P/B 136 136 - 145 MMOL/L 01/13/2025 4:22 PM [facility] POTASSIUM S/P/B 3.6 3.5 - 5.1 MMOL/L 01/13/2025 4:22 PM [facility] CHLORIDE S/P/B 101 98 - 107 MMOL/L 01/13/2025 4:22 PM [facility] CO2 27.7 21.0 - 32.0 MMOL/L 01/13/2025 4:22 PM [facility] GLUCOSE 106(H) 70 - 99 MG/DL 01/13/2025 4:22 PM [facility] Comment: FASTING GLUCOSE 100 TO 125 MG/DL IS CONSISTENT WITH IMPAIRED FASTING GLUCOSE. FASTING GLUCOSE >125 MG/DL IS CONSISTENT WITH DIABETES. RANDOM GLUCOSE >200 MG/DL WITH HYPERGLYCEMIC SYMPTOMS IS CONSISTENT WITH DIABETES. PER ADA GUIDELINES BUN 11 6 - 24 MG/DL 01/13/2025 4:22 PM [facility] CREATININE S/P/B 0.65 0.55 - 1.02 MG/DL 01/13/2025 4:22 PM [facility] CALCIUM S/P/B 9.0 8.4 - 10.5 MG/DL 01/13/2025 4:22 PM [facility] ANION GAP 7.3 5.0 - 15.0 MMOL/L 01/13/2025 4:22 PM [facility] OSMOLALITY (CALC) 282 MOSM/KG 025 4:22 PM [facility] Comment:REFERENCE RANGE NOT ESTABLISHED GFR ESTIMATE >90 >89 ML/MIN/1. 73 M2 01/13/2025 4:22 PM [facility] GFR NOTES GFR REFERENCE S: 01/13/2025 4:22 PM [facility] Comment: THE ESTIMATED GFR [...] Kaitlin Colon MD LABORATORY Final Resul t [facility] [address] [place] [address], from Last 3 Months Insurance FLOOD Care Teams Bilingual Administrative Assistant Relationship Specialty Start Date End Date Tanner Paige MD [address] [place] [address] PCP - General FAMILY PRACTICE 07/01/24 Steph Hightower MD [address] [place] [address] Consulting Physician CARDIOVASCULAR DISEASE 11/07/22 Janell Celaya APNP [address] [place] [address] NURSE PRACTITIONER 12/01/24
--- OUTSIDE RECORDS SUMMARY | 2025-02-16 16:40 | XMS_ITS | Encounter Summary ---
Author Organization [facility] Healthcare Address [address] [place] [address] Care Team Providers Care Rivet Machine Operator Name Role Phone Kera Flanagan NP Primary Care Provider [phone] Tammi Menon APRN Primary Care Provider Encounter Details Date Type Department Care Team (Late st Contact Info) Description 10/25/[address] 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 [address] PCP - General Family Medicine 12/31/24 documented as of this encounter
--- OUTSIDE RECORDS SUMMARY | 2025-02-16 16:40 | XMS_ITS | Clinical Summary ---
Author Organization [facility] Address [address] [place] [address] Care Team Providers Care Ground Products Director Name Role Phone Tammi Menon DOREEN Primary [...] have care with Dr. Ortega Denson in [place], [place]. Assessment & Plan (07/04/2019 7:48 PM CDT): - no plans to initiate care [place] - gave Rx for doxylamine/pyridoxine for nausea - encouraged smoking cessation; recommended she d/w Dr. Addison Denson when she establishes care Abdominal pain in 07/04/2019 Overview (07/04/2019): 07/04/2019: presented to [facility], r/o for acute process. Transfer to [facility] for dating confirmation. Reports no [...] Department Care Team Description 12/31/2024 2:47 PM MACHINE ROOM ENGINEER - 12/31/2024 5:34 PM MACHINE ROOM ENGINEER [facility] Emergency Department [address] [place] [id number] Shortness of breath (Primary Dx) Discharge Disposition: [...] on file Legal Sex Female 11:55 PM MACHINE ROOM ENGINEER Gender Identity Not on file Sexual Orientation [...] Comments Blood Pressure 101/69 12/31/2024 5:25 PM MACHINE ROOM ENGINEER Pulse 77 12/31/2024 5:25 PM MACHINE ROOM ENGINEER Temperature 37.1 C (98.7 F) 12/31/2024 2:09 PM MACHINE ROOM ENGINEER Respiratory Rate 18 12/31/2024 5:25 PM MACHINE ROOM ENGINEER Oxygen Saturation 100% 12/31/2024 5:25 PM MACHINE ROOM ENGINEER Inhaled Oxygen Concentration - - Weight 72.7 kg (160 lb 4.4 oz) 12/31/2024 2:09 P M MACHINE ROOM ENGINEER Height 165.1 cm (5' 5 ) 12/31/2024 2:09 PM MACHINE ROOM ENGINEER Body Mass Index 26.67 12/31/2024 2:09 PM MACHINE ROOM ENGINEER Plan of Treatment Health Maintenance Due Date [...] CHEST PE W CONTRAST ED 3:51 PM MACHINE ROOM ENGINEER POCT HCG, URINE Routine 12/31/2024 3:19 PM MACHINE ROOM ENGINEER XR CHEST PA LATERAL 2 VIEWS ED 12/31/2024 2:26 PM MACHINE ROOM ENGINEER EGFR STAT 12/31/2024 2:16 PM MACHINE ROOM ENGINEER DIFFERENTIAL AUTO STAT 12/31/2024 2:1 6 PM MACHINE ROOM ENGINEER D-DIMER, QUANTITATIVE STAT 12/31/2024 2:16 PM MACHINE ROOM ENGINEER COMPREHENSIVE METABOLIC PANEL STAT 12/31/2024 2:16 PM MACHINE ROOM ENGINEER CBC WITH AUTO DIFFERENTIAL STAT 12/31/2024 2:16 PM MACHINE ROOM ENGINEER INFLUENZA A/B, RSV, AND COVID-19 PCR STAT 12/31/2024 2:16 PM MACHINE ROOM ENGINEER from Last 3 Months Results * CT Chest PE (CTA) W Contrast (12/31/2024 3:51 PM MACHINE ROOM ENGINEER) Anatomical Region Laterality Modality Body N/A Computed Tomogra phy 12/31/2024 4:49 PM MACHINE ROOM ENGINEER Narrative 12/31/2024 5:03 PM MACHINE ROOM ENGINEER EXAM DESCRIPTION: CT CHEST PE (CTA) W [...] Quang Decker M.D. LC: GABRIEL Report ID: [id number] Reading Location: [place] [address] Procedure Note Yumiko Decker MD - 12/31/2024 [...] Quang Decker M.D. LC: GABRIEL Report ID: [id number] Reading Location: [place] [address] [facility] [address] PROCEDURES Final Result * POCT hCG, urine (12/31/2024 3:19 PM MACHINE ROOM ENGINEER) HCG, ur, POC Negative Negative Lot Number [id number] QC Backgroud Clear Acceptable QC Control Line Acceptable Urine 12/31/2024 3:19 PM MACHINE ROOM ENGINEER us [facility] POINT OF CARE TEST ORDERABLES F inal Result * XR Chest PA Lateral 2 Views (12/31/2024 2:26 PM MACHINE ROOM ENGINEER) Anatomical Region Laterality Modality Body, Chest N/A Computed Radiogr aphy 12/31/2024 2:43 PM MACHINE ROOM ENGINEER Narrative 12/31/2024 2:43 PM MACHINE ROOM ENGINEER EXAM DESCRIPTION: XR CHEST PA LATERAL 2 [...] by Remberto Carney M.D. JR: Report ID: [id number] Reading Location: [id number] Procedure Note Remberto Carney MD - 12/31/2024 [...] by Remberto Carney M.D., JR: Report ID: [id number] Reading Location: [id number] [facility] IM XR PROCEDURES Final Result * Influenza A/B, RSV, and COVID-19 PCR Nasopharyngeal (12/31/2024 2:16 PM MACHINE ROOM ENGINEER) COVID-19 RNA Negative Negative Comment:Testing performed by : [facility], [address] [place] [address]., [id number] Influenza A RNA Negative Negative YEVGENIY Comment:Testing performed by : [address] [address] Influenza B RNA Negative Negative YEVGENIY Comment:Testing performed by : [facility], [address] [place] [address]., [address] RSV RNA Negative Negative YEVGENIY Comment: Interpretive data: Testing performed by [facility]. This test is performed using the [employer] Xpert Xpress CoV-2/Flu/RSV plus assay. This is a multiplex, real-time reverse transcriptase PCR assay intended for the qualitative detection of nucleic acid from SARS-CoV-2, influenza A, influenza B, and respiratory syncytial virus. This assay has been cleared by the [place] Food and Drug administration. The performance characteristics have been verified by the [facility]. Results must be considered in the clinical context, and a negative result does not rule out infection. Interpretive Data last revised 2023 Testing performed by: [facility], [address] [place] [address]., [id number] Nasopharyngeal 12/31/2024 2: 16 PM MACHINE ROOM ENGINEER 12/31/2024 2:24 PM MACHINE ROOM ENGINEER Narrative YEVGENIY - 12/31/2024 3:09 PM MACHINE ROOM ENGINEER Is the Patient experiencing symptoms consistent with COVID?->Yes [facility] MICROBIOLOGY - GENERAL JOSE CORONADO Final Result YEVGENIY [address] [facility] Department [place] [address] * eGFR (12/31/2024 2:16 PM MACHINE ROOM ENGINEER) Pathologist [facility] eGFR >90 >=60 mL/min/1. 73 m2 Comment: [...] was last reviewed 2021. Testing performed by: [address] [address] Blood 12/31/2024 2:16 PM MACHINE ROOM ENGINEER 12/31/2024 2:24 PM MACHINE ROOM ENGINEER us [facility] LAB BLOOD ORDERABLES Final Resu lt YEVGENIY [address] [facility] Department [place] [address] * (ABNORMAL) Differential, auto (12/31/2024 2:16 PM MACHINE ROOM ENGINEER) Neutrophil abs 6.0 1.5 - 6.5 K/cumm Comment:Testing performed by : [address] [address] Imm gran abs 0.0 0.0 - 0.1 K/cumm YEVGENIY Comment:Testing performed by : [address] [address] Lymphocyte abs 2.7 0.8 - 3.3 K/cumm YEVGENIY Comment:Testing performed by : [address] [address] Monocyte abs 0.9(H) 0.2 - 0.8 K/cumm YEVGENIY Comment:Testing performed by : [address] [address] Eosinophil abs 0.1 0.0 - 0.5 K/cumm YEVGENIY Comment:Testing performed by : [address] [address] Basophil abs 0.0 0.0 - 0.1 K/cumm YEVGENIY Comment:Testing performed by : [address] [address] Neutrophil pct 61.6 % YEVGENIY Comment: Interpretive Data Percent cell count reference ranges are not reported, since discordance with absolute values may lead to misinterpretation of CBC data. Current Interpretive Data was last revised on 2018. Testing performed by: [address] [address] Imm gran pct 0.3 % YEVGENIY Comment: Interpretive Data Percent cell count reference ranges are not reported, since discordance with absolute values may lead to misinterpretation of CBC data. Current Interpretive Data was last revised on 2018. Testing performed by: [address] [address] Lymphocyte pct 27.3 % [facility] Comment: Interpretive Data Percent cell count reference ranges are not reported, since discordance with absolute values may lead to misinterpretation of CBC data. Current Interpretive Data was last revised on 2018. Testing performed by: [address] [address] Monocyte pct 9.4 % [facility] Comment: Interpretive Data Percent cell count reference ranges are not reported, since discordance with absolute values may lead to misinterpretation of CBC data. Current Interpretive Data was last revised on 2018. Testing performed by: [address] [address] Eosinophil pct 1.2 % [facility] Comment: Interpretive Data Percent cell count reference ranges are not reported, since discordance with absolute values may lead to misinterpretation of CBC data. Current Interpretive Data was last revised on 2018. Testing performed by: [address] [address] Basophil pct 0.2 % [facility] Comment: Interpretive Data Percent cell count reference ranges are not reported, since discordance with absolute values may lead to misinterpretation of CBC data. Current Interpretive Data was last revised on 2018. Testing performed by: [address] [address] Blood 12/31/2024 2:16 PM MACHINE ROOM ENGINEER 12/31/2024 2:24 PM MACHINE ROOM ENGINEER [facility] LAB BLOOD ORDERABLES Final Resu lt YEVGENIY [address] [facility] Department [place] [address] * (ABNORMAL) CBC with auto differential (12/31/2024 2:16 PM MACHINE ROOM ENGINEER) WBC 9.8 3.8 - 9.9 K/cumm Comment:Testing performed by : [address] [address] Hgb 12.8 11.9 - 15.5 g/dL YEVGENIY Comment:Testing performed by : [address] [address] Hct 40.0 35.6 - 45.5 % YEVGENIY Comment:Testing performed by : [address] [address] Plt 288 150 - 400 K/cumm YEVGENIY Comment:Testing performed by : [address] [address] MPV 9.7 9.1 - 12.3 fL YEVGENIY Comment:Testing performed by : [address] [address] RBC 4.74 3.90 - 5.20 M/cumm YEVGENIY Comment:Testing performed by : [address] [address] MCV 84.4 81.3 - 96.4 fL YEVGENIY Comment:Testing performed by : [address] [address] MCH 27.0(L) 27.1 - 33.3 pg YEVGENIY Comment:Testing performed by : [address] [address] MCHC 32.0(L) 32.3 - 35.7 g/dL YEVGENIY Comment:Testing performed by : [address] [address] RDW CV 12.2 11.1 - 14.9 % YEVGENIY Comment:Testing performed by : [address] [address] RDW SD 36.9 35.7 - 48.1 fL YEVGENIY TOM Comment:Testing performed by : [facility], [address] [place] [address]., [address] NRBC abs 0.00 0.00 - 0.01 K/cumm YEVGENIY TOM Comment:Testing performed by : [facility], [address] [place] [address]., [address] Blood 12/31/2024 2:16 PM MACHINE ROOM ENGINEER 12/31/2024 2:24 PM MACHINE ROOM ENGINEER [facility] [place] LAB BLOOD ORDERABLES Final Resu lt Performing Organization Address [facility] [address]/[facility] Co de Phone Number YEVGENIY [address] [facility] [place] [address] * (ABNORMAL) D-dimer, quantitative (12/31/2024 2:16 PM MACHINE ROOM ENGINEER) D-Dimer 720(H) <=499 ng/mL FEU Comment: Interpretive [...] last revised on 2019. Testing performed by: [address] [address] Blood 12/31/2024 2:16 PM MACHINE ROOM ENGINEER 12/31/2024 2:24 PM MACHINE ROOM ENGINEER [employer] [place] LAB BLOOD ORDERABLES Final Resu lt Performing Organization Address City/[facility] [address]/ZIP Co de Phone Number YEVGENIY [address] [facility] [place] [address] * (ABNORMAL) Comprehensive metabolic panel (12/31/2024 2:16 PM MACHINE ROOM ENGINEER) Sodium 137 135 - 145 mmol/L Comment:Testing performed by : [address] [address] Potassium, pl 4.1 3.3 - 4.9 mmol/L [facility] Comment:Testing performed by : [address] [address] Chloride 103 97 - 110 mmol/L [facility] Comment:Testing performed by : [address], [place]., [address] CO2 24 22 - 32 mmol/L [facility] Comment:Testing performed by : [address] [address] Anion gap 10 2 - 15 mmol/L [facility] Comment:Testing performed by : [address] [address] BUN 11 6 - 25 mg/dL [facility] Comment:Testing performed by : [address] [address] Creatinine 0.57(L) 0.60 - 1.10 mg/dL [facility] Comment:Testing performed by : [address] [address] Glucose 89 70 - 199 mg/dL [facility] Comment: Interpretive Data Fasting glucose >/= [...] was last revised 2022. Testing performed by: [address] [address] Calcium 9.7 8.5 - 10.3 mg/dL [facility] Comment:Testing performed by : [address] [address] Bilirubin, total 0.2 0.1 - 1.2 mg/dL YEVGEN[facility]Y Comment:Testing performed by : [address] [address] Protein, pl 7.9 6.5 - 8.5 g/dL [facility]EVGEN[facility]Y Comment:Testing performed by : [address] [address] Albumin 4.4 3.5 - 5.0 g/dL [facility]EVGEN[facility]Y Comment:Testing performed by : [address] [address] Alk phos 89 40 - 130 Units/L [facility] Comment:Testing performed by : [address] [address] ALT 21 7 - 45 Units/L [facility] Comment:Testing performed by : [address] [address] AST 24 10 - 45 Units/L [facility]EVGEN[facility]Y Comment:Testing performed by : [address] [address] Blood 12/31/2024 2:16 PM MACHINE ROOM ENGINEER 12/31/2024 2:24 PM MACHINE ROOM ENGINEER [facility] LAB BLOOD ORDERABLES Final Resu lt YEVGENIY [address] [facility] Department [place] [address] from Last 3 Months Insurance [facility] Care Teams Ground Products Director Relationship Specialty Start Date End Date Lynsey Tammi Sanchez, CONSTRUCTION REPRESENTATIVE [address] Pediatric Emerg. Dept. [place] [phone] PCP - General Family Medicine 12/31/24
--- OUTSIDE RECORDS SUMMARY | 2025-02-16 16:40 | XMS_ITS | Referral Summary ---
Author Organization [facility] Address [address] [place] [address] Care Team Providers Care Numerical Control Lathe Operator Name Role Phone Tammi Menon DOREEN Primary Care Provider Encounters Date Type Department Care Team Description 12/31/2024 2:47 PM HANDBELL CHOIR DIRECTOR - 12/31/2024 5:34 PM [facility] Emergency [facility] Emergency Department [facility] [place] [address] Shortness of breath (Primary Dx) [...] have care with Dr. Ortega Denson in [place], [place]. Assessment & Plan (07/04/2019 7:48 PM CDT): - no plans to initiate care in [facility] - gave Rx for doxylamine/pyridoxine for nausea - encouraged smoking cessation; recommended she d/w Dr. Addison Denson when she establishes care Abdominal pain in 07/04/2019 Overview (07/04/2019): 07/04/2019: presented to [facility], r/o for acute process. Transfer to [facility] for dating confirmation. Reports no BM [...] on file Legal Sex Female 11:55 PM HANDBELL CHOIR DIRECTOR Gender Identity Not on file Sexual Orientation Not on file Last Filed Vital Signs Vital Sign Reading Time Taken Comments Blood Pressure 101/69 12/31/2024 5:25 PM HANDBELL CHOIR DIRECTOR Pulse 77 12/31/2024 5:25 PM HANDBELL CHOIR DIRECTOR Temperature 37.1 C (98.7 F) 12/31/2024 2:09 PM HANDBELL CHOIR DIRECTOR Respiratory Rate 18 12/31/2024 5:25 PM HANDBELL CHOIR DIRECTOR Oxygen Saturation 100% 12/31/2024 5:25 PM HANDBELL CHOIR DIRECTOR Inhaled Oxygen Concentration - - Weight 72.7 kg (160 lb 4.4 oz) 12/31/2024 2:09 P M HANDBELL CHOIR DIRECTOR Height 165.1 cm (5' 5 ) 12/31/2024 2:09 PM HANDBELL CHOIR DIRECTOR Body Mass Index 26.67 12/31/2024 2:09 PM HANDBELL CHOIR DIRECTOR Plan of Treatment Not on file Procedures Procedure Name Priority Date/Time Associated Diagnosis Comments CT CHEST PE W CONTRAST ED 3:51 PM HANDBELL CHOIR DIRECTOR POCT HCG, URINE Routine 12/31/2024 3:19 PM HANDBELL CHOIR DIRECTOR XR CHEST PA LATERAL 2 VIEWS ED 12/31/2024 2:26 PM HANDBELL CHOIR DIRECTOR EGFR STAT 12/31/2024 2:16 PM HANDBELL CHOIR DIRECTOR DIFFERENTIAL AUTO STAT 12/31/2024 2:1 6 PM HANDBELL CHOIR DIRECTOR D-DIMER, QUANTITATIVE STAT 12/31/2024 2:16 PM HANDBELL CHOIR DIRECTOR COMPREHENSIVE METABOLIC PANEL STAT 12/31/2024 2:16 PM HANDBELL CHOIR DIRECTOR CBC WITH AUTO DIFFERENTIAL STAT 12/31/2024 2:16 PM HANDBELL CHOIR DIRECTOR INFLUENZA A/B, RSV, AND COVID-19 PCR STAT 12/31/2024 2:16 PM HANDBELL CHOIR DIRECTOR from Last 3 Months Results * CT Chest PE (CTA) W Contrast (12/31/2024 3:51 PM HANDBELL CHOIR DIRECTOR) Anatomical Region Laterality Modality Body N/A Computed Tomogra phy 12/31/2024 4:49 PM HANDBELL CHOIR DIRECTOR Narrative 12/31/2024 5:03 PM HANDBELL CHOIR DIRECTOR EXAM DESCRIPTION: CT CHEST PE (CTA) W [...] Quang Decker M.D. LC: GABRIEL Report ID: [id number] Reading Location: [id number] Procedure Note Yumiko Decker MD - 12/31/2024 [...] Quang Decker M.D. LC: GABRIEL Report ID: [id number] Reading Location: [place] [address] [facility] CT PROCEDURES Final Result * POCT hCG, urine (12/31/2024 3:19 PM HANDBELL CHOIR DIRECTOR) HCG, ur, POC Negative Negative Lot Number [id number] QC Backgroud Clear Acceptable QC Control Line Acceptable Urine 12/31/2024 3:19 PM HANDBELL CHOIR DIRECTOR [facility] POINT OF CARE TEST ORDERABLES F inal Result * XR Chest PA Lateral 2 Views (12/31/2024 2:26 PM HANDBELL CHOIR DIRECTOR) Anatomical Region Laterality Modality Body, Chest N/A Computed Radiogr aphy 12/31/2024 2:43 PM HANDBELL CHOIR DIRECTOR Narrative 12/31/2024 2:43 PM HANDBELL CHOIR DIRECTOR EXAM DESCRIPTION: XR CHEST PA LATERAL 2 [...] by Remberto Carney M.D. JR: Report ID: [id number] Reading Location: [id number] Procedure Note Remberto Carney MD - 12/31/2024 [...] by Remberto Carney M.D. JR: Report ID: [id number] Reading Location: [place] [address] us [facility] IMG XR PROCEDURES Final Result * Influenza A/B, RSV, and COVID-19 PCR Nasopharyngeal (12/31/2024 2:16 PM HANDBELL CHOIR DIRECTOR) Pathologist [facility] COVID-19 RNA Negative Negative Comment:Testing performed by : [address], [address] Influenza A RNA Negative Negative [facility] Comment:Testing performed by : [address] [address] Influenza B RNA Negative Negative [facility] Comment:Testing performed by : [address], [address] RSV RNA Negative Negative [facility] Comment: Interpretive data: Testing performed by [facility]. This test is performed using the [employer] Xpert Xpress CoV-2/Flu/RSV plus assay. This is a multiplex, real-time reverse transcriptase PCR assay intended for the qualitative detection of nucleic acid from SARS-CoV-2, influenza A, influenza B, and respiratory syncytial virus. This assay has been cleared by the [place] Food and Drug administration. The performance characteristics have been verified by the [facility]. Results must be considered in the clinical context, and a negative result does not rule out infection. Interpretive Data last revised 2023 Testing performed by: [address] [address] Nasopharyngeal 12/31/2024 2: 16 PM HANDBELL CHOIR DIRECTOR 12/31/2024 2:24 PM HANDBELL CHOIR DIRECTOR Narrative YEVGENIY - 12/31/2024 3:09 PM HANDBELL CHOIR DIRECTOR Is the Patient experiencing symptoms consistent with COVID?->Yes us [facility] MICROBIOLOGY - GENERAL ORDE RABLES Final Result Performing Organization Address City/State/[facility] de Phone Number YEVGENIY [facility] Department [place] [address] * eGFR (12/31/2024 2:16 PM HANDBELL CHOIR DIRECTOR) Pathologist [facility] eGFR >90 >=60 mL/min/1. 73 m2 [...] was last reviewed 2021. Testing performed by: [address] [address] Blood 12/31/2024 2:16 PM HANDBELL CHOIR DIRECTOR 12/31/2024 2:24 PM HANDBELL CHOIR DIRECTOR us [facility] LAB BLOOD ORDERABLES Final Resu lt Performing Organization Address [facility] [address]/[facility] Co de Phone Number YEVGENIY [facility] Department [place] [address] * (ABNORMAL) Differential, auto (12/31/2024 2:16 PM HANDBELL CHOIR DIRECTOR) Pathologist [facility] Neutrophil abs 6.0 1.5 - 6.5 K/cumm Comment:Testing performed by : [address] [address] Imm gran abs 0.0 0.0 - 0.1 K/cumm YEVGENIY Comment:Testing performed by : [address] [address] Lymphocyte abs 2.7 0.8 - 3.3 K/cumm [facility] Comment:Testing performed by : [address], [place]., [address] Monocyte abs 0.9(H) 0.2 - 0.8 K/cumm [facility] Comment:Testing performed by : [address], [place]., [address] Eosinophil abs 0.1 0.0 - 0.5 K/cumm [facility] Comment:Testing performed by : [address], [place]., [address] Basophil abs 0.0 0.0 - 0.1 K/cumm [facility] Comment:Testing performed by : [address] [address] Neutrophil pct 61.6 % [facility] Comment: Interpretive Data Percent cell count reference ranges are not reported, since discordance with absolute values may lead to misinterpretation of CBC data. Current Interpretive Data was last revised on 2018. Testing performed by: [address] [address] Imm gran pct 0.3 % [facility] Comment: Interpretive Data Percent cell count reference ranges are not reported, since discordance with absolute values may lead to misinterpretation of CBC data. Current Interpretive Data was last revised on 2018. Testing performed by: [address] [address] Lymphocyte pct 27.3 % [facility] Comment: Interpretive Data Percent cell count reference ranges are not reported, since discordance with absolute values may lead to misinterpretation of CBC data. Current Interpretive Data was last revised on 2018. Testing performed by: [address] [address] Monocyte pct 9.4 % [facility] Comment: Interpretive Data Percent cell count reference ranges are not reported, since discordance with absolute values may lead to misinterpretation of CBC data. Current Interpretive Data was last revised on 2018. Testing performed by: [address] [address] Eosinophil pct 1.2 % [facility] Comment: Interpretive Data Percent cell count reference ranges are not reported, since discordance with absolute values may lead to misinterpretation of CBC data. Current Interpretive Data was last revised on 2018. Testing performed by: [address] [address] Basophil pct 0.2 % [facility]OM Comment: Interpretive Data Percent cell count reference ranges are not reported, since discordance with absolute values may lead to misinterpretation of CBC data. Current Interpretive Data was last revised on 2018. Testing performed by: [address] [address] Blood 12/31/2024 2:16 PM HANDBELL CHOIR DIRECTOR 12/31/2024 2:24 PM HANDBELL CHOIR DIRECTOR us [facility] LAB BLOOD ORDERABLES Final Resu lt YEVGENIY [facility] Department [place] [address] * (ABNORMAL) CBC with auto differential (12/31/2024 2:16 PM HANDBELL CHOIR DIRECTOR) WBC 9.8 3.8 - 9.9 K/cumm Comment:Testing performed by : [address] [address] Hgb 12.8 11.9 - 15.5 g/dL [facility] Comment:Testing performed by : [address] [address] Hct 40.0 35.6 - 45.5 % [facility] Comment:Testing performed by : [address] [address] Plt 288 150 - 400 K/cumm [facility]OM Comment:Testing performed by : [address] [address] MPV 9.7 9.1 - 12.3 fL [facility]OM Comment:Testing performed by : [address] [address] RBC 4.74 3.90 - 5.20 M/cumm [facility]Y [facility]OM Comment:Testing performed by : [address] [address] MCV 84.4 81.3 - 96.4 fL YEV[facility]IY Comment:Testing performed by : [address] [address] MCH 27.0(L) 27.1 - 33.3 pg YEVGENIY TOM Comment:Testing performed by : [address] [address] MCHC 32.0(L) 32.3 - 35.7 g/dL [facility]OM Comment:Testing performed by : [address] [address] RDW CV 12.2 11.1 - 14.9 % YEV[facility]Y Comment:Testing performed by : [address] [address] RDW SD 36.9 35.7 - 48.1 fL [facility] Comment:Testing performed by : [address] [address] NRBC abs 0.00 0.00 - 0.01 K/cumm [facility] Comment:Testing performed by : [address] [address] Blood 12/31/2024 2:16 PM HANDBELL CHOIR DIRECTOR 12/31/2024 2:24 PM HANDBELL CHOIR DIRECTOR us [facility] LAB BLOOD ORDERABLES Final Resu lt YEVGENIY [address] [facility] Department of Laboratories [place], [place] [id number] * (ABNORMAL) D-dimer, quantitative (12/31/2024 2:16 PM HANDBELL CHOIR DIRECTOR) D-Dimer 720(H) <=499 ng/mL FEU Comment: Interpretive [...] last revised on 2019. Testing performed by: [address] [address] Blood 12/31/2024 2:16 PM HANDBELL CHOIR DIRECTOR 12/31/2024 2:24 PM HANDBELL CHOIR DIRECTOR us Les[facility] LAB BLOOD ORDERABLES Final Resu lt YEVGENIY [address] Department [place] [address] * (ABNORMAL) Comprehensive metabolic panel (12/31/2024 2:16 PM HANDBELL CHOIR DIRECTOR) Sodium 137 135 - 145 mmol/L Comment:Testing performed by : [address] [address] Potassium, pl 4.1 3.3 - 4.9 mmol/L [facility] Comment:Testing performed by : [address] [address] Chloride 103 97 - 110 mmol/L [facility] Comment:Testing performed by : [address] [address] CO2 24 22 - 32 mmol/L [facility] Comment:Testing performed by : [address] [address] Anion gap 10 2 - 15 mmol/L [facility] Comment:Testing performed by : [address] [address] BUN 11 6 - 25 mg/dL [facility] Comment:Testing performed by : [address] [address] Creatinine 0.57(L) 0.60 - 1.10 mg/dL [facility] Comment:Testing performed by : [address] [address] Glucose 89 70 - 199 mg/dL YEVGENIY [...] was last revised 2022. Testing performed by: [address] [address] Calcium 9.7 8.5 - 10.3 mg/dL [facility] Comment:Testing performed by : [address] [address] Bilirubin, total 0.2 0.1 - 1.2 mg/dL [facility] Comment:Testing performed by : [address] [address] Protein, pl 7.9 6.5 - 8.5 g/dL [facility] Comment:Testing performed by : [address] [address] Albumin 4.4 3.5 - 5.0 g/dL [facility] Comment:Testing performed by : [address] [address] Alk phos 89 40 - 130 Units/L [facility] Comment:Testing performed by : [address] [address] ALT 21 7 - 45 Units/L [facility] Comment:Testing performed by : [address] [address] AST 24 10 - 45 Units/L [facility] Comment:Testing performed by : [address] [address] Blood 12/31/2024 2:16 PM HANDBELL CHOIR DIRECTOR 12/31/2024 2:24 PM HANDBELL CHOIR DIRECTOR [facility] LAB BLOOD ORDERABLES Final Resu lt [facility] [address] [facility] [place] [address] from Last 3 Months Insurance [facility] Care Teams Numerical Control Lathe Operator Relationship Specialty Start Date End Date Tammi Menon APRN [address] [place] [address] PCP - General Family Medicine 12/31/24
== END 2025-02-16 16:06 | disposition home or self-care (01) ==
PROVIDERS: Emergency Provider Student in an Organized Health Care Education/Training Program
DX: R07.9 Chest pain, unspecified (principal); O26.91 Pregnancy related conditions, unspecified, first trimester; Z3A.09 9 weeks gestation of pregnancy
CPT/HCPCS: 36415; 71045; 80053; 83690; 85025; 85610; 85730; 93005; 99284

== ENCOUNTER 2025-02-19 12:39 | Observation (INO) | payer OTHER, SELFPAY ==
--- OUTSIDE RECORDS SUMMARY | 2025-02-19 12:46 | XMS_ITS | Data Portability ---
Author Organization [facility] Address [address] [place] [address] [place] [address] Care Team Providers Care Egg Pasteurizer Name Role Phone SEANCARLOS Primary Care Provider [phone] Assessment No assessment recorded. Plan of Treatment [...] US, obstetr ic, transva ginal 2024 025 [address], [address], [place], [address], 01/27/2025 22:04:56 US, obstetr ic, transva ginal [address], [address], [place], [address], 01/14/2025 20:59:59 Medication Orders prometh azine 25 mg tablet 2024 025 [facility] 334, [address] [facility], [place], [address], 02/04/2025 10:40:13 Fiorice t 50 mg-300 mg-40 mg capsule 2024 025 [facility] 446, [address] [facility], [place], [address], 02/05/2025 21:58:45 Patient TargetsNo targets recorded. Patient InstructionsNo instructions recorded. Reason for Referral None Reported. Results Created Date Observation Date Name Description Value Unit Range Abnormal Flag Note LastModifiedBy Organization Detail LastModifiedTime 01/28/2001/27/2025 IMAGE GUIDE D PAP, REFLE X HPV IF ASCUS ONLY image guided Pap, reflex HPV ASCUS only SEE RESULT S BELOW CASE REPOR T: Cytol ogy Gynec ologi nicolas Repor t Case: [id number] Autho jayshree angelica Provi mic: Latoya [...] Thinp rep Imagi ng Syste m. CLINI N[facility]OLAS INFOR MATIO N: Menst rual Statu s: LMP (if appli cable ): 2024 Clini [facility]olas Histo ry/Pr eviou s Pap: Type of Neopl chance (if appli cable ): Signi fican t Clini nicolas Findi ngs: Other Histo ry: Hormo jay [...] ng do not corre late with physi nicolas and/o r histo rical findi ngs, furth er inves tigat ion is recom thais d, as clini kentrell rosario nted. Not Available [facility] (Lab) [address], [place], [address], 02/01/2025 12:02:58 01/28/2001/27/2025 TRICH OMONA S VAGIN CATHI (RRNA ) trichomonas vaginalis ribosomal RNA (rrna) Negati ve negati ve Not Available [facility] (Lab) [address], [place], [address], 02/01/2025 12:02:58 01/28/20 25 01/27/2025 CT/GC (JOHN) , THINP REP VIAL chlamydia trachomatis, PCR Negati ve negati ve Not Available [facility] (Lab) [address], [place], [address], 02/01/2025 12:02:59 01/28/20 25 01/27/2025 CT/GC (JOHN) , THINP REP VIAL neisseria gonorrhoeae, PCR Negati ve negati ve Not Available [facility] (Lab) [address] [facility], [place], [address], 02/01/2025 12:02:59 01/15/20 25 01/14/2025 US, pelvi s No observ ation record ed. [email or web address] [address], [place], [address], 01/14/2025 22:26:54 01/15/20 25 01/14/2025 US, obste tric, trans vagin al No observ ation record ed. [email or web address] [facility] [address], [place], [address], 01/14/2025 13:55:51 01/28/20 25 01/27/2025 US, obste tric, trans vagin al No observ ation record ed. [email or web address] [facility] [address], [place], [address], 01/27/2025 18:32:06 01/28/20 25 01/27/2025 US, obste tric, trans vagin al No observ ation record ed. [email or web address] [address], [place], [address], 01/27/2025 22:14:08 Result Notes None recorded. Problems Name Problem SNOMED Code Status Onset Date Resolution Date Notes Provider Name and Address Organization Details Recorded Time Gestatio n period, 37 weeks 36443352 Completed 201907/05/2021 37 weeks gestatio n of pregnanc y;Record ed Elsewher e: No Locat ion: [facility] S ource: EHR Manufacturing Controls Engineer yvrose: N Practi ce ID: [id number] Gigi lable Time: 09:00:00 AM Karina ramos [facility] 1 10:15:[address] Concept Completed 201907/05/2021 Matern care for abnlt fetl hrt rate or rhym, 3rd tri, unsp;Rec orded Elsewher e: No Locat ion: [facility] S ource: EHR Manufacturing Controls Engineer yvrose: N Natalyati ce ID: 0001 Gigi lable Time: 08:45:00 AM Karina ramos [facility] 1 10:15:29 Gestatio nal diabetes mellitus 34154183 Completed 201907/05/2021 Gestatio nal diabetes mellitus in pregnanc y, diet controll ed;Recor ded Elsewher e: No Locat ion: [facility] S ource: EHR Manufacturing Controls Engineer yvrose: N Natalyati ce ID: [email or web address] Gigi lable Time: 11:45:00 AM Karina ramos [facility] 10:15:25 Gestatio n period, 38 weeks 39096778 Completed 201907/05/2021 38 weeks gestatio n of pregnanc y;Record ed Elsewher e: No Locat ion: [facility] S ource: EHR Manufacturing Controls Engineer yvrose: N Natalyati ce ID: [email or web address] Gigi lable Time: 11:30:00 AM Karina ramos [facility] 1 10:15:13 Normal pregnanc y in multigra jessy [id number] 4106 Completed 201907/05/2021 Encounte r for supervis ion of other normal pregnanc y, 3rd trimeste r;Record ed Elsewher e: No Locat ion: [facility] S ource: EHR Manufacturing Controls Engineer yvrose: N Natalyati ce ID: 0001 Gigi lable Time: 10:45:00 AM Karina ramos [facility] 1 10:15:27 Amenorrh ea 54662109 Completed 202007/10/2021 Tammi Jones null, [facility] 1 13:08:35 Pregnanc y 68096057 Completed 202003/29/2022 Karina Burroughs null, [facility] 4 11:00:49 Hypereme sis 040437545 Completed phenerga n now prn Asia Steph hl null, [facility] 2 16:43:51 Anxiety in pregnanc y 39091162716 109 Completed will continue to monitor Asia Steph hl null, [facility] 2 16:43:51 Past pregnanc y history of gestatio nal diabetes mellitus 139009904 Completed Early 1 hr GTT @ 20wks 11/03 APPT Asia Steph hl null, [facility] 2 16:43:51 Spinal muscular atrophy 1147325 Completed Carrier - Not in contact with FOB. Asia Baileybebe hl null, [facility] 2 16:43:51 Pregnanc y 79899720 Completed 202304/22/2024 Karina Burroughs null, [facility] 4 11:00:49 Anxiety 67410295 Completed prozac Karina Burroughs null, [facility] 4 11:00:46 Nausea 350019205 Completed d/c zofran pump 11/08 per pt request Karina ramos, [facility] 4 11:00:46 Postpart um hemorrha ge 84497327 Completed 2017 with d&c Karina ramos, [facility] 4 11:00:46 Headache 42114602 Active 2023 Karina Burroughs null, [facility] 5 16:19:28 Pregnanc y 07536371 Active 2023 Karina Burroughs [facility] 5 16:19:28 Notes:Order faxed to [facility] access 08/10 for PICC line, and home health already caring for ptHilda Vladimir RN at [phone] Problem Notes None recorded. Procedures Surgical History Date Name Laterality Status Provider Name and Address Organization Details Recorded Time 5 Date of Last Pap Smear completed Karina Burroughs [facility] 01/28/2025 11:19:42 4 Nexplanon Removal completed Shawn Bradley MD [address], [place], [address], [facility] 08/05/2024 15:09:58 4 Control Implant Insertion completed Anju Mcnamara CNM [address], [place], [address], [facility] 05/08/2024 17:59:34 8 Dilation and Curettage completed Karina Burroughs [facility] 07/05/2021 10:17:50 Imaging Results Imaging Date Name Status LastModified by Organization Details LastModified Time 01/14/2025 US, pelvis completed [email or web address] [address], [place], [address], 01/14/2025 22:26:54 01/14/2025 US, obstetric, transvaginal completed [email or web address] [facility] [address], [place], [address], 01/14/2025 13:55:51 01/27/2025 US, obstetric, transvaginal completed [email or web address] [facility] [address], [place], [address], 01/27/2025 18:32:06 01/27/2025 US, obstetric, transvaginal completed [email or web address] [address], [place], [address], 01/27/2025 22:14:08 Procedure Notes None recorded. Medical Equipment None Reported. Allergies Allergen ID Allergen Name Allergen Category Reaction Reaction Severity Criticality Documentation Date Start Date Code Code System Note Provider Name and Address Organization Details Recorded Time 38049 terbutali ne medicatio n anaphylax is Not available Not available 01/27/20252021 78864 RxNorm Karina Burroughs [facility] 16:19:27 Medications Name Sig [...] 1 CAPSULE BY MOUTH TWICE DAILY FOR 10 DAYS active Not Available Not Available No t Available pantopraz ole 40 mg tablet,de layed [...] Not Available promethaz ine 25 mg tablet TAKE 1 TABLET BY MOUTH EVERY 4 HOURS active Not Available Not Available No t Available ibuprofen 400 mg tablet TAKE 1 TABLET [...] CAPSULE BY MOUTH EVERY 12 HOURS FOR 7 DAYS active Not Available Not Available No t Available 03/27 completed Not Available Not Available Not Available Symbicort 80 mcg-4.5 mcg/actua tion HFA aerosol inhaler INHALE 2 PUFFS BY MOUTH TWICE DAILY active Not Available Not Available No t Available ferrous sulfate 15 mg iron (75 mg)/mL oral drops 07/05 completed Prescrib ed Elsewher e: Yes Loca tion: [facility] M odify By: prabhjot barrera DateTime : [...] n (supplie d by office) insert lot [id number] Exp 01/2026 Not Available Not Available Not Available 28 mg iron-800 mcg tablet 07/05 completed Prescrib ed Pancho e: Yes Loca tion: [facility] M odify By: prabhjot barrera DateTime : [...] Updated DateTime 01/14/2025 162.56 cm 27.3 kg/m2 22726.19 g 112 mm[Hg] 72 mm[Hg] Melyssa aSnto [facility] 5 13:05:16 Date Recorded Body height Body mass index (BMI) Body weight Systolic blood pressure Diastolic blood pressure Provider Name and Address Organization Details Last Updated DateTime 01/27/2025 162.56 cm 27.8 kg/m2 63019.96 g 115 mm[Hg] 74 mm[Hg] Karina Burroughs [facility] 5 16:19:09 Date Recorded Body height Body mass index (BMI) Body weight Systolic blood pressure Diastolic blood pressure Provider Name and Address Organization Details Last Updated DateTime 02/04/2025 162.56 cm 28.2 kg/m2 01432.15 g 113 mm[Hg] 72 mm[Hg] Melyssa Santo [facility] 10:24:20 Social History Question Answer Notes LastModified by Organizat ion Details LastModified Time Tobacco Smoking Status Former Smoker Karina ramos, [facility] 07/05/2021 09:06:21 What Is Your Level Of Alcohol Consumption? Occasional Information not available 07/05/2021 If You Are , What Was Your Level Of Alcohol Consumption Prior To ? None [email or web address] Information not available 07/05/2021 Are You Blind Or Do You Have Difficulty Seeing? No [email or web address] Information not available 07/05/2021 What Is Your Level Of Caffeine Consumption? Heavy [email or web address] Information not available 07/05/2021 In The 14 Days Before Symptom Onset, Have You Had Close Contact With A Laboratory-confir med COVID-19 While That Case Was Ill? No Information not available 07/05/2021 In The 14 Days Before Symptom Onset, Have You Had Close Contact With A Person Who Is Under Investigation For COVID-19 While That Person Was Ill? No [email or web address] Information not available 07/05/2021 Have You Been To An Area Known To Be High Risk For COVID-19? No [email or web address] Information not available 07/05/2021 Are You Deaf Or Do You Have Serious Difficulty Hearing? No [email or web address] Information not available 07/05/2021 What Type Of Diet Are You Following? REGULAR [email or web address] Information not available 07/05/2021 Which Illicit Or Recreational Drugs Have You Used? Marijuana [email or web address] Information not available 07/05/2021 Do You Or Have You Ever Used E-cigarettes Or Vape? Current User Of Electronic Cigarettes [email or web address] Information not available 07/05/2021 Have You Ever Been Counseled For Unhealthy Alcohol Use? No [email or web address] Information not available 07/05/2021 Do You Use Your Seat Belt Or Car Seat Routinely? Yes Information not available 07/05/2021 Do You Have Smoke And Carbon Monoxide Detectors In Your Home? Yes [email or web address] Information not available 07/05/2021 Do You Or Have You Ever Used Smokeless Tobacco? Never Used Smokeless Tobacco [email or web address] Information not available 07/05/2021 Do You Feel Stressed (tense, Restless, Nervous, Or Anxious, Or Unable To Sleep At Night)? [id number] Information not available 07/05/2021 Do You Use Any Illicit Or Recreational Drugs? Yes [email or web address] Information not available 07/05/2021 Do You Use Sunscreen Routinely? Yes [email or web address] Information not available 07/05/2021 Has Tobacco Cessation Counseling Been Provided? No [email or web address] Information not available 07/05/2021 Have You Used IV Drugs? No [email or web address] Information not available 07/05/2021 Do You Or Have You Ever Used Any Other Forms Of Tobacco Or Nicotine? Yes [email or web address] Information not available 07/05/2021 Sex: Unknown Functional Status Question Answer Note LastModified by Organizat ion Details LastModified Time Do you have difficulty walking or climbing stairs? No [email or web address] Information not available 12/06/2021 Are you able to walk? YESWOREST [email or web address] Information not available 07/05/2021 Are you able to care for yourself? Yes [email or web address] Information not available 12/06/2021 Do you have difficulty dressing or bathing? No [email or web address] Information not available 12/06/2021 What is your exercise level? Occasional [email or web address] Information not available 07/05/2021 Mental Status None recorded. Family History Relationship Description Onset Age of this Age Resolved Age Notes LastModified by Organization Details LastModified Time Father No current problems or disability [email or web address] Not available 05/2021 09:06:31 Mother No current problems or disability [email or web address] Not available 05/2021 09:06:31 Medical History Condition [...] SNOMED-CT Code Diagnosis ICD10 Code Diagnosis Note [id number] Anju Mcnamara CNM [facility] [address] [address] 07/05/2021 09:58:05 07/05/2021 11:16:35 Pityriasis versicolor 27079118 B36.0 also wash with selsum blue shampoo Vaginitis 56249376 N76.0 Nausea 634896550 R11.0 Contracept ion care management 153184546 Z30.9 [id number] Betsey Joya [facility] [address] [address] 08/02/2021 10:30:44 08/04/2021 10:07:43 Severe hyperemesis gravidarum 653704905 O21.1 Pt has not held anything down for more than 24 hours. Sent to ER for hydration and evaluation . We have discussed dietary precaution s. Recommend very small frequent meals. Avoid greasy, spicy or trigger foods. I do believe she may benefit from home health for fluids and IV antiemetic s. [id number] Anju Mcnamara [facility] [address],[place] [address] 08/08/2021 10:22:11 08/08/2021 13:42:05 Depressive disorder 94362905 F32.A in an emergency [facility] info given and kettler reminder, if increased thoughts or plan to hospital for immediate care, pt agrees, continue counseling , will try lexapro once can keep down fluids, se reviewed Gynecologi c examination 66787250 Z01.419 Z11.3 Z11.8 Amenorrhea 28685210 N91. 2 plan NOB and first look Nausea and vomiting 1693 2000 R11.2 unable to leave urine, unable at this time to go to LD, encouraged to go to LD for hydration, working on home health services, [id number] Ivana Farnsworth [facility] [address],[place] [address] 08/08/2021 10:21:08 08/08/2021 10:53:33 Routine care 623948979 Z34.91 Z3A.08 [id number] Anju Mcnamara [facility] [address],[place] [address] 09/13/2021 14:51:52 09/14/2021 13:44:23 test positive 645094969 Z32.01 Routine an tenatal care 929344897 Z34.91 [id number] Darlene De La Torre [facility] [address],[place] [address] 09/13/2021 15:35:32 09/13/2021 16:26:27 screening 634345376 Z36.82 [id number] Betsey Joya [facility] [address],[place] [address] 10/09/2021 12:26:15 10/09/2021 17:39:00 Urinary symptoms 198444776 R39.9 Fatigue 39818791 R53.83 Venereal d isease screening 377767003 Z11.3 [id number] Anju Mcnamara [facility] [address],[place] [address] 10/16/2021 11:57:23 10/16/2021 12:48:11 Routine care 663051778 Z34.91 [id number] Anju Mcnamara [facility] [address],[place] [address] 11/03/2021 11:32:21 11/03/2021 13:52:13 Routine care 742578041 Z34.91 [id number] Ivana [facility] [address],[place] [address] 11/03/2021 11:31:37 11/03/2021 12:34:34 screening for malformation 368027671 Z36.3 [id number] Anju Mcnamara [facility] [address],[place] [address] 12/06/2021 14:46:58 12/06/2021 16:07:59 Routine care 139947142 Z34.91 Iron defic iency anemia 46797432 D50.9 Anxiety 85996282 F41.9 [id number] Ivana Farnsworth [facility] [address],[place] [address] 12/06/2021 14:46:10 12/06/2021 15:18:30 condition affecting obstetrical care of mother 643996683 O35.8XX0 Z3A.25 [id number] Anju Mcnamara [facility] [address],[place] [address] 12/22/2021 11:04:34 12/22/2021 11:32:13 Routine care 546345303 Z34.91 [id number] Darlene De La Torre [facility] [address],[place] [address] 01/03/2022 14:21:04 01/03/2022 15:48:26 Uterine size for dates discrepancy 081648813 O26.843 Z3A.29 [id number] Anju Mcnamara [facility] [address],[place] [address] 01/03/2022 14:21:33 01/03/2022 15:13:41 Routine care 166602452 Z34.91 [id number] Anju Mcnamara [facility] [address],[place] [address] 01/17/2022 16:53:11 01/17/2022 17:24:14 Routine care 256900454 Z34.91 Persistent cough 5357933 02 R05.3 [id number] Betsey Joya [facility] [address],[place] [address] 02/06/2022 09:22:49 02/06/2022 09:55:25 Routine care 619137981 Z34.93 [id number] Darlene De La Torre [facility] [address],[place] [address] 02/13/2022 14:43:16 02/13/2022 15:26:49 Poor growth affecting management 965317107 O36.5930 Z3A.35 [id number] Anju Mcnamara [facility] [address],[place] [address] 02/16/2022 15:13:14 02/16/2022 15:58:27 Routine care 793477882 Z34.91 [id number] Anju Mcnamara [facility] [address],[place] [address] 03/02/2022 15:02:03 03/02/2022 15:28:58 Routine care 797302564 Z34.91 [id number] BOLA Miller [facility] [address],[place] [address] 03/27/2022 10:37:37 03/27/2022 11:14:18 Mixed anxiety and depressive disorder 006029118 F41.8 Chest pain 11907693 R07. 9 She has a hx of [...] treatment for anxiety/de pression.Bianca peng has a team driver that will take her to [place] ED (vitals are WNL, no acute distress noted).She has no thoughts of harming herself or others.She will call the office to schedule an appointmen t to be seen after ED evaluation . We discussed at that time can start therapy for depression /anxiety. RTC after cleared by ED Time spent with the patient was 20 minutes [id number] Shawn Bradley MD [facility] [address] [address] 04/16/2022 15:11:58 04/16/2022 17:11:09 Mixed anxiety and depressive disorder 474894647 F41.8 this patient is a 22-year-ol d [...] ce. More than 50% was counseling . [id number] Ivana Farnsworth [facility] [address] [address] 04/16/2022 16:43:28 04/16/2022 17:34:26 Abnormal uterine bleeding 4031801878 9100 N93.9 [id number] BOLA Miller [facility] [address] [address] 06/19/2022 17:24:32 06/19/2022 18:03:44 Abnormal uterine bleeding 5654893402 9100 N93.9 We discussed likely spotting is [...] of plan of care. Pain in pelvis 58823239 R10.2 Contracept ion care management 320264395 Z30.9 Irregular periods 988605 07 N92.6 Venereal d isease screening 493482426 Z11.3 Anxiety 96186982 F41.9 [id number] Darlene De La Torre [facility] [address] [address] 10/02/2023 13:44:25 10/02/2023 14:07:54 screening 545465929 Z36.82 Z36.87 Z3A.11 [id number] Anju Mcnamara [facility] [address] [address] 10/02/2023 13:46:45 10/02/2023 14:50:25 Amenorrhea 88753775 N91.2 plan NOB and first look NIPT and labs todaywants tubal ligation after delivery Gynecologi c examination 87264851 Z01.419 Z11.3 Z11.8 Nausea and vomiting 1693 2000 R11.2 [id number] Anju Mcnamara [facility] [address],[place] [address] 11/01/2023 11:17:59 11/01/2023 13:01:44 Gestation period, 16 weeks 61732634 Z3A.16 Anxiety 76396161 F41.9 [id number] Darlene De La Torre [facility] [address],[place] [address] 11/27/2023 14:04:37 11/27/2023 15:16:15 screening for malformation 407955956 Z36.3 Z3A.19 [id number] Anju Mcnamara [facility] [address],[place] [address] 11/27/2023 14:13:33 11/27/2023 15:31:00 Routine care 787769164 Z34.91 [id number] Anju Mcnamara [facility] [address],[place] [address] 12/25/2023 14:51:56 12/25/2023 15:52:45 Routine care 355687052 Z34.91 [id number] Anju Mcnamara [facility] [address],[place] [address] 02/14/2024 14:13:14 02/14/2024 16:07:12 Routine care 006801132 Z34.91 [id number] Anju Mcnamara [facility] [address],[place] [address] 03/27/2024 11:47:21 03/27/2024 12:30:07 Routine care 617475911 Z34.91 [id number] Anju Mcnamara [facility] [address] [place] [address] 05/08/2024 14:54:41 05/11/2024 09:00:41 Screening procedure 31907705 Z13.9 Insertion of subcutaneous contraceptive 112202643 Z30.46 reviewed se risks and benefits, bandage until skin closes, pressure bandage x 24 hourswill schedule bilateral salpingect kateryna with dr. bradley care 52690805 8 Z39.2 continue multivitam in Sterilizat ion requested 372872371 Z30.2 [id number] Shawn Bradley MD [facility] [address],[place] [address] 08/05/2024 13:57:53 08/05/2024 15:11:54 Contraception care management 006395560 Z30.9 Nexplanon removed without complicati ons. She tolerated well. [id number] [facility] [address],[place] [address] 01/14/2025 11:51:17 01/14/2025 12:53:24 Uncertain viability of 411321742 Z3A.01 [id number] Shawn Bradley MD [facility] [address],[place] [address] 01/14/2025 11:51:38 01/15/2025 09:38:25 Pain in pelvis 32638897 R10.2 25-year-ol d female presents for ER [...] care. She will return in 2 weeks. [id number] [facility] [address],[place] [address] 01/27/2025 14:42:15 01/27/2025 15:35:58 Abdominal pain in 791016898 O99.891 Z3A.01 [id number] Shawn Bradley MD [facility] [address],[place] [address] 01/27/2025 14:55:24 01/27/2025 16:41:41 Amenorrhea 19718530 N91.2 Z32.01 this patient is a 25-year-ol [...] begin routine care at her next visit. [id number] Shawn Bradley MD [facility] [address] [address] 02/04/2025 10:09:23 02/04/2025 10:48:21 Headache 89112773 R51.9 Nausea and vomiting 1693 2000 R11.2 [...] Member ID Guarantor Name 01/14/2025 1 [facility] (MEDICAID HMO) [id number] 0003 Yuni Brown [id number] Yuni Brown 01/14/2025 1 [employer] [facility] [place] ([place]ICAID H[place]) [id number] 0003 Yuni Brown [id number] Yuni Brown 01/27/2025 1 [facility] (MEDICAID HMO) [id number] 0003 Yuni Brown [id number] Yuni Brown 01/27/2025 1 [employer] [facility] [place] [id number] 0003 Yuni Brown [id number] Yuni Brown 02/04/2025 1 [facility] (MEDICAID HMO) [id number] 0003 Yuni Brown [id number] Yuni Brown Notes Date Note Type Note Provider Name [...] in 2 weeks. Shawn Bradley MD [address], [place], [address], [facility] 01/14/2025 21:27:11 01/27/2025 text/html this patient [...] She was given recommendations on exercise, diet, lrwf-wjp-ecruskq medications. We reviewed her obstetric history. We reviewed her medical history. We reviewed her social history. She will begin routine care at her next visit. Shawn Bradley MD [address], [place], [address], [facility] 01/27/2025 16:36:44 02/04/2025 text/html 25-year-old fema le with severe nausea, 8 weeks gestation, hyperemesis gravidarum. Patient states Zofran is not working anymore. She is unable to keep liquids down. We talked about various treatment options in detail. Spent over 20 minutes [id number] with the patient and on her care in total. We agreed to send to labor and delivery for IV fluids. Shawn Bradley MD [address], [place], [address], [facility] 02/04/2025 10:46:36 OBGyn Episode Ob Episode Information Episode Created Date Number of Fetuses Patient Bloodtype Patient rh Status Prepregnancy Weight lbs Domestic Partner Domestic Partner Phone Father Name Countersinker Balance Screw Hole Status 03/14/20 20 1 CLOSED Fetus Data [...] Domestic Partner Domestic Partner Phone Father Name Countersinker Balance Screw Hole Status 07/05/20 21 1 CLOSED Fetus Data First Name Last Name Admitted to NICU Weight (g) Sex Living Outcome Pediatric Complications Fetus ID Race Codes Race Delivery Type , Spontane ous 66918 Jun Calculation Initial Jun Date Initial Exam [...] Domestic Partner Domestic Partner Phone Father Name Countersinker Balance Screw Hole Status 09/13/20 21 1 B Positive 103 diontre silva CLOSED Fetus Data First Name Last Name Admitted to NICU Weight (g) Sex Living Outcome Pediatric Complications Fetus ID Race Codes Race Delivery Type 3316.89 15 F true Full Term terminal meconium 50091 Vaginal Delivery Problems Problem Notes EIF in [place] noted03/05 PIH WNL, UC WNL Problem Name Start Date End Date Resolution Snomed Code Not e Spinal muscular atrophy [id number] Carrier - Not i n contact with FOB. Past history of gestational diabetes mellitus 969846370 Early 1 hr GTT @ 20wks 11/03 APPT Hyperemesis [id number] phenerga n now prn Anxiety in [id number] 06129 will continue to monitor Jun Calculation Initial [...] Date Ultra Sound Latest Days Gestation 0 [id number] 09/14/2021 03/16/20 22 0 Pre- Flowsheet Flowsheet [...] Weight in lbs Pre/Post Dialysis Refused Weight 110.228359800236 BP Diastolic BP Location Tested BP Systolic [...] Weight in lbs Pre/Post Dialysis Refused Weight 119.696078093263 BP Diastolic BP Location Tested BP Systolic [...] Weight in lbs Pre/Post Dialysis Refused Weight 120.715372773608 BP Diastolic BP Location Tested BP Systolic [...] Weight in lbs Pre/Post Dialysis Refused Weight 124.631258240350 BP Diastolic BP Location Tested BP Systolic [...] Weight in lbs Pre/Post Dialysis Refused Weight 137.803025548704 BP Diastolic BP Location Tested BP Systolic [...] Weight in lbs Pre/Post Dialysis Refused Weight 145.5848353118 BP Diastolic BP Location Tested BP Systolic [...] Weight in lbs Pre/Post Dialysis Refused Weight 152.984620884271 BP Diastolic BP Location Tested BP Systolic [...] Weight in lbs Pre/Post Dialysis Refused Weight 150.786472242209 BP Diastolic BP Location Tested BP Systolic [...] Weight in lbs Pre/Post Dialysis Refused Weight 157.528461814074 BP Diastolic BP Location Tested BP Systolic [...] Weight in lbs Pre/Post Dialysis Refused Weight 158.855330178111 BP Diastolic BP Location Tested BP Systolic [...] Weight in lbs Pre/Post Dialysis Refused Weight 163.810978074689 BP Diastolic BP Location Tested BP Systolic [...] Weight in lbs Pre/Post Dialysis Refused Weight 134.148791107305 BP Diastolic BP Location Tested BP Systolic [...] At Estimated Date of Delivery false Thalassemia (Arabic, Polish, Mediterranean, Or Background): MCV < 80 false Neural Tube Defect (Meningom yelocele, Spina Bifida, Or Anencephaly) false Congenital Heart Defect false Down Syndrome false Erick-Sachs (eg, Faith, Cajun, Italian-Reno) f alse Lizzette Disease false Sickle Cell Disease Or Trait () false Hemophilia Or Other Blood Disorders false Muscular Dystrophy false Cystic Fibrosis false Chilton's Chorea false Intellectual Disability/Autism false If Yes, [...] Domestic Partner Domestic Partner Phone Father Name Countersinker Balance Screw Hole Status 07/05/20 21 1 CLOSED Fetus Data First Name Last Name Admitted to NICU Weight (g) Sex Living Outcome Pediatric Complications Fetus ID Race Codes Race Delivery Type 3175.14 4 F Full Term 65680 Vaginal Delivery Jun Calculation Initial Jun Date [...] Domestic Partner Domestic Partner Phone Father Name Countersinker Balance Screw Hole Status 11/01/19 24 1 B Positive 126 L[address] CLOSED Fetus Data First Name Last Name Admitted to NICU Weight (g) Sex Living Outcome Pediatric Complications Fetus ID Race Codes Race Delivery Type 3401.94 M true Full Term 43958 Vaginal Delivery Problems Problem Notes gallbladder attack/pain - re ferral to Gen Surg Dr. Boles sent 11/08- pt never went because pain stopped Problem Name Start Date End Date Resolution Snomed Code Not e Anxiety [id number] prozac Nausea [id number] d/c zofran pump 11/08 per pt request hemorrhage [id number] hx of 2017 with d&c Jun Calculation [...] Weight in lbs Pre/Post Dialysis Refused Weight 130.954828743955 BP Diastolic BP Location Tested BP Systolic [...] Weight in lbs Pre/Post Dialysis Refused Weight 136.029307687180 BP Diastolic BP Location Tested BP Systolic [...] Weight in lbs Pre/Post Dialysis Refused Weight 144.746682177326 BP Diastolic BP Location Tested BP Systolic [...] Weight in lbs Pre/Post Dialysis Refused Weight 154.893453646268 BP Diastolic BP Location Tested BP Systolic [...] Weight in lbs Pre/Post Dialysis Refused Weight 157.652821777964 BP Diastolic BP Location Tested BP Systolic [...]
--- OUTSIDE RECORDS SUMMARY | 2025-02-19 12:46 | XMS_ITS | Clinical Summary ---
Author Organization [facility] Address [address] [place] [address] Care Team Providers Care Bacon Slicer Name Role Phone Tammi Menon DOREEN Primary [...] have care with Dr. Ortega Denson in [place], [place]. Assessment & Plan (07/04/2019 7:48 PM CDT): - no plans to initiate care in [place] - gave Rx for doxylamine/pyridoxine for nausea - encouraged smoking cessation; recommended she d/w Dr. Addison Denson when she establishes care Abdominal pain in 07/04/2019 Overview (07/04/2019): 07/04/2019: presented to [facility], r/o for acute process. Transfer to [facility] for dating confirmation. Reports no BM [...] Department Care Team Description 12/31/2024 2:47 PM SUPERVISOR CELL MAINTENANCE - 12/31/2024 5:34 PM SUPERVISOR CELL MAINTENANCE [facility] Emergency Department [address] [place] [address] Shortness of breath (Primary Dx) Discharge Disposition: [...] on file Legal Sex Female 11:55 PM SUPERVISOR CELL MAINTENANCE Gender Identity Not on file Sexual Orientation [...] Comments Blood Pressure 101/69 12/31/2024 5:25 PM SUPERVISOR CELL MAINTENANCE Pulse 77 12/31/2024 5:25 PM SUPERVISOR CELL MAINTENANCE Temperature 37.1 C (98.7 F) 12/31/2024 2:09 PM SUPERVISOR CELL MAINTENANCE Respiratory Rate 18 12/31/2024 5:25 PM SUPERVISOR CELL MAINTENANCE Oxygen Saturation 100% 12/31/2024 5:25 PM SUPERVISOR CELL MAINTENANCE Inhaled Oxygen Concentration - - Weight 72.7 kg (160 lb 4.4 oz) 12/31/2024 2:09 P M SUPERVISOR CELL MAINTENANCE Height 165.1 cm (5' 5 ) 12/31/2024 2:09 PM SUPERVISOR CELL MAINTENANCE Body Mass Index 26.67 12/31/2024 2:09 PM SUPERVISOR CELL MAINTENANCE Plan of Treatment Health Maintenance Due Date [...] CHEST PE W CONTRAST ED 3:51 PM SUPERVISOR CELL MAINTENANCE POCT HCG, URINE Routine 12/31/2024 3:19 PM SUPERVISOR CELL MAINTENANCE XR CHEST PA LATERAL 2 VIEWS ED 12/31/2024 2:26 PM SUPERVISOR CELL MAINTENANCE EGFR STAT 12/31/2024 2:16 PM SUPERVISOR CELL MAINTENANCE DIFFERENTIAL AUTO STAT 12/31/2024 2:1 6 PM SUPERVISOR CELL MAINTENANCE D-DIMER, QUANTITATIVE STAT 12/31/2024 2:16 PM SUPERVISOR CELL MAINTENANCE COMPREHENSIVE METABOLIC PANEL STAT 12/31/2024 2:16 PM SUPERVISOR CELL MAINTENANCE CBC WITH AUTO DIFFERENTIAL STAT 12/31/2024 2:16 PM SUPERVISOR CELL MAINTENANCE INFLUENZA A/B, RSV, AND COVID-19 PCR STAT 12/31/2024 2:16 PM SUPERVISOR CELL MAINTENANCE from Last 3 Months Results * CT Chest PE (CTA) W Contrast (12/31/2024 3:51 PM SUPERVISOR CELL MAINTENANCE) Anatomical Region Laterality Modality Body N/A Computed Tomogra phy 12/31/2024 4:49 PM SUPERVISOR CELL MAINTENANCE Narrative 12/31/2024 5:03 PM SUPERVISOR CELL MAINTENANCE EXAM DESCRIPTION: CT CHEST PE (CTA) W [...] Quang Decker M.D. LC: GABRIEL Report ID: [id number] Reading Location: [place] [address] Procedure Note Yumiko Decker MD - 12/31/2024 [...] Quang Decker M.D. LC: GABRIEL Report ID: [id number] Reading Location: [place] [address] [address] PROCEDURES Final Result * POCT hCG, urine (12/31/2024 3:19 PM SUPERVISOR CELL MAINTENANCE) HCG, ur, POC Negative Negative Lot Number [id number] QC Backgroud Clear Acceptable QC Control Line Acceptable Urine 12/31/2024 3:19 PM SUPERVISOR CELL MAINTENANCE us [facility] POINT OF CARE TEST ORDERABLES F inal Result * XR Chest PA Lateral 2 Views (12/31/2024 2:26 PM SUPERVISOR CELL MAINTENANCE) Anatomical Region Laterality Modality Body, Chest N/A Computed Radiogr aphy 12/31/2024 2:43 PM SUPERVISOR CELL MAINTENANCE Narrative 12/31/2024 2:43 PM SUPERVISOR CELL MAINTENANCE EXAM DESCRIPTION: XR CHEST PA LATERAL 2 [...] by Remberto Carney M.D. JR: Report ID: [id number] Reading Location: [id number] Procedure Note Remberto Carney MD - 12/31/2024 [...] by Remberto Carney M.D., JR: Report ID: [id number] Reading Location: [id number] XR PROCEDURES Final Result * Influenza A/B, RSV, and COVID-19 PCR Nasopharyngeal (12/31/2024 2:16 PM SUPERVISOR CELL MAINTENANCE) COVID-19 RNA Negative Negative Comment:Testing performed by : [facility], [address] [place] [address]., [address] Influenza A RNA Negative Negative YEVGENIY Comment:Testing performed by : [address] [address] Influenza B RNA Negative Negative YEVGENIY Comment:Testing performed by : [facility], [address] [place] [address]., [address] RSV RNA Negative Negative YEVGENIY Comment: Interpretive data: Testing performed by [facility]. This test is performed using the [employer] Xpert Xpress CoV-2/Flu/RSV plus assay. This is a multiplex, real-time reverse transcriptase PCR assay intended for the qualitative detection of nucleic acid from SARS-CoV-2, influenza A, influenza B, and respiratory syncytial virus. This assay has been cleared by the [place] Food and Drug administration. The performance characteristics have been verified by the [facility]. Results must be considered in the clinical context, and a negative result does not rule out infection. Interpretive Data last revised 2023 Testing performed by: [facility], [address] [place] [address]., [address] Nasopharyngeal 12/31/2024 2: 16 PM SUPERVISOR CELL MAINTENANCE 12/31/2024 2:24 PM SUPERVISOR CELL MAINTENANCE Narrative YEVGENIY - 12/31/2024 3:09 PM SUPERVISOR CELL MAINTENANCE Is the Patient experiencing symptoms consistent with COVID?->Yes [facility] MICROBIOLOGY - GENERAL JOSE CORONADO Final Result YEVGENIY [address] [facility] Department [place] [address] * eGFR (12/31/2024 2:16 PM SUPERVISOR CELL MAINTENANCE) Pathologist [facility] Emergency Department eGFR >90 >=60 mL/min/1. 73 m2 Comment: [...] was last reviewed 2021. Testing performed by: [address] [address] Blood 12/31/2024 2:16 PM SUPERVISOR CELL MAINTENANCE 12/31/2024 2:24 PM SUPERVISOR CELL MAINTENANCE us [facility] LAB BLOOD ORDERABLES Final Resu lt YEVGENIY [address] [facility] Department [place] [address] * (ABNORMAL) Differential, auto (12/31/2024 2:16 PM SUPERVISOR CELL MAINTENANCE) Neutrophil abs 6.0 1.5 - 6.5 K/cumm Comment:Testing performed by : [address] [address] Imm gran abs 0.0 0.0 - 0.1 K/cumm YEVGENIY Comment:Testing performed by : [address] [address] Lymphocyte abs 2.7 0.8 - 3.3 K/cumm YEVGENIY Comment:Testing performed by : [address] [address] Monocyte abs 0.9(H) 0.2 - 0.8 K/cumm YEVGENIY Comment:Testing performed by : [address] [address] Eosinophil abs 0.1 0.0 - 0.5 K/cumm YEVGENIY Comment:Testing performed by : [address] [address] Basophil abs 0.0 0.0 - 0.1 K/cumm YEVGENIY Comment:Testing performed by : [address] [address] Neutrophil pct 61.6 % YEVGENIY Comment: Interpretive Data Percent cell count reference ranges are not reported, since discordance with absolute values may lead to misinterpretation of CBC data. Current Interpretive Data was last revised on 2018. Testing performed by: [address] [address] Imm gran pct 0.3 % YEVGENIY Comment: Interpretive Data Percent cell count reference ranges are not reported, since discordance with absolute values may lead to misinterpretation of CBC data. Current Interpretive Data was last revised on 2018. Testing performed by: [address] [address] Lymphocyte pct 27.3 % [facility] Comment: Interpretive Data Percent cell count reference ranges are not reported, since discordance with absolute values may lead to misinterpretation of CBC data. Current Interpretive Data was last revised on 2018. Testing performed by: [address] [address] Monocyte pct 9.4 % [facility] Comment: Interpretive Data Percent cell count reference ranges are not reported, since discordance with absolute values may lead to misinterpretation of CBC data. Current Interpretive Data was last revised on 2018. Testing performed by: [address] [address] Eosinophil pct 1.2 % [facility] Comment: Interpretive Data Percent cell count reference ranges are not reported, since discordance with absolute values may lead to misinterpretation of CBC data. Current Interpretive Data was last revised on 2018. Testing performed by: [address] [address] Basophil pct 0.2 % [facility] Comment: Interpretive Data Percent cell count reference ranges are not reported, since discordance with absolute values may lead to misinterpretation of CBC data. Current Interpretive Data was last revised on 2018. Testing performed by: [address] [address] Blood 12/31/2024 2:16 PM SUPERVISOR CELL MAINTENANCE 12/31/2024 2:24 PM SUPERVISOR CELL MAINTENANCE [facility] BLOOD ORDERABLES Final Resu lt YEVGENIY [address] [facility] Department [place] [address] * (ABNORMAL) CBC with auto differential (12/31/2024 2:16 PM SUPERVISOR CELL MAINTENANCE) WBC 9.8 3.8 - 9.9 K/cumm Comment:Testing performed by : [address] [address] Hgb 12.8 11.9 - 15.5 g/dL YEVGENIY Comment:Testing performed by : [address] [address] Hct 40.0 35.6 - 45.5 % YEVGENIY Comment:Testing performed by : [address] [address] Plt 288 150 - 400 K/cumm YEVGENIY Comment:Testing performed by : [address] [address] MPV 9.7 9.1 - 12.3 fL YEVGENIY Comment:Testing performed by : [address] [address] RBC 4.74 3.90 - 5.20 M/cumm YEVGENIY Comment:Testing performed by : [address] [address] MCV 84.4 81.3 - 96.4 fL YEVGENIY Comment:Testing performed by : [address] [address] MCH 27.0(L) 27.1 - 33.3 pg YEVGENIY Comment:Testing performed by : [address] [address] MCHC 32.0(L) 32.3 - 35.7 g/dL YEVGENIY Comment:Testing performed by : [address] [address] RDW CV 12.2 11.1 - 14.9 % YEVGENIY Comment:Testing performed by : [address] [address] RDW SD 36.9 35.7 - 48.1 fL YEVGENIY TOM Comment:Testing performed by : [facility], [address] [place] [address]., [address] NRBC abs 0.00 0.00 - 0.01 K/cumm YEVGENIY TOM Comment:Testing performed by : [facility], [address] [place] [address]., [address] Blood 12/31/2024 2:16 PM SUPERVISOR CELL MAINTENANCE 12/31/2024 2:24 PM SUPERVISOR CELL MAINTENANCE [place] LAB BLOOD ORDERABLES Final Resu lt Performing Organization Address [facility] Co de Phone Number YEVGENIY [address] [facility] [place] [address] * (ABNORMAL) D-dimer, quantitative (12/31/2024 2:16 PM SUPERVISOR CELL MAINTENANCE) D-Dimer 720(H) <=499 ng/mL FEU Comment: Interpretive [...] last revised on 2019. Testing performed by: [address] [address] Blood 12/31/2024 2:16 PM SUPERVISOR CELL MAINTENANCE 12/31/2024 2:24 PM SUPERVISOR CELL MAINTENANCE [facility] [place] LAB BLOOD ORDERABLES Final Resu lt Performing Organization Address City/[facility]/ZIP Co de Phone Number YEVGENIY [address] [facility] [place] [address] * (ABNORMAL) Comprehensive metabolic panel (12/31/2024 2:16 PM SUPERVISOR CELL MAINTENANCE) Sodium 137 135 - 145 mmol/L Comment:Testing performed by : [address] [address] Potassium, pl 4.1 3.3 - 4.9 mmol/L [facility] Comment:Testing performed by : [address] [address] Chloride 103 97 - 110 mmol/L [facility] Comment:Testing performed by : [address], [place]., [address] CO2 24 22 - 32 mmol/L [facility] Comment:Testing performed by : [address] [address] Anion gap 10 2 - 15 mmol/L [facility] Comment:Testing performed by : [address] [address] BUN 11 6 - 25 mg/dL [facility] Comment:Testing performed by : [address] [address] Creatinine 0.57(L) 0.60 - 1.10 mg/dL [facility] Comment:Testing performed by : [address] [address] Glucose 89 70 - 199 mg/dL [facility] Comment: Interpretive Data Fasting glucose >/= 126 [...] was last revised 2022. Testing performed by: [address] [address] Calcium 9.7 8.5 - 10.3 mg/dL [facility] Comment:Testing performed by : [address] [address] Bilirubin, total 0.2 0.1 - 1.2 mg/dL YEVGENIY Comment:Testing performed by : [address] [address] Protein, pl 7.9 6.5 - 8.5 g/dL YEVGENIY Comment:Testing performed by : [address] [address] Albumin 4.4 3.5 - 5.0 g/dL YEVGENIY Comment:Testing performed by : [address] [address] Alk phos 89 40 - 130 Units/L YEVGENIY Comment:Testing performed by : [address] [address] ALT 21 7 - 45 Units/L YEVGENIY Comment:Testing performed by : [address] [address] AST 24 10 - 45 Units/L YEVGENIY Comment:Testing performed by : [address] [address] Blood 12/31/2024 2:16 PM SUPERVISOR CELL MAINTENANCE 12/31/2024 2:24 PM SUPERVISOR CELL MAINTENANCE [facility] LAB BLOOD ORDERABLES Final Resu lt YEGVENIY [address] [facility] [place] [address] from Last 3 Months Insurance [facility] Care Teams Bacon Slicer Relationship Specialty Start Date End Date Lynsey Tammi Sanchez, SEAMER [address] Pediatric Emerg. Dept. [place] [id number] PCP - General Family Medicine 12/31/24
--- OUTSIDE RECORDS SUMMARY | 2025-02-19 12:46 | XMS_ITS | Encounter Summary ---
Author Organization [facility] Healthcare Address [address] [place] [address] Care Team Providers Care Oracle Ebs Developer Name Role Phone Kera Flanagan NP Primary Care Provider [phone] Tammi Menon APRN Primary Care Provider Encounter Details Date Type Department Care Team (Late st Contact Info) Description 10/25/2023 Orders Only [facility] Home Care Services [address] [facility] [address] [place] [address] Carli Whitaker, [facility] Social History Tobacco Use Types [...] on file Legal Sex Female 11:55 PM CLINICAL NURSING INTERN Gender Identity Not on file Sexual Orientation Not on file documented as of this encounter Plan of Treatment Not on file documented as of this encounter Visit Diagnoses Not on filedocumented in this encounter Additional Health Concerns Infection Onset Date Last Indicated Resolved Time COVID: Suspected 12/31/2024 12/31/2024 12/31/2024 3:10 PM CLINICAL NURSING INTERN documented as of this encounter Care Teams Oracle Ebs Developer Relationship Specialty Start Date End Date Kera Flanagan, [place]T PCP - General 05/30/22 12/30/24 Tammi Menon APRN [address] Pediatric [place] [address] PCP - General Family Medicine 12/31/24 documented as of this encounter
--- OUTSIDE RECORDS SUMMARY | 2025-02-19 12:46 | XMS_ITS | Referral Summary ---
Author Organization [facility] Address [address] [place] [address] Care Team Providers Care Impact Hammer Operator Name Role Phone Tammi Menon DOREEN Primary Care Provider Encounters Date Type Department Care Team Description 12/31/2024 2:47 PM EXECUTIVE ASSISTANT TO PRESIDENT - 12/31/2024 5:34 PM [facility] Emergency Department [address] [place] [address] Shortness of breath (Primary Dx) [...] have care with Dr. Ortega Denson in [place], [place]. Assessment & Plan (07/04/2019 7:48 PM CDT): - no plans to initiate care in [facility] - gave Rx for doxylamine/pyridoxine for nausea - encouraged smoking cessation; recommended she d/w Dr. Addison Denson when she establishes care Abdominal pain in 07/04/2019 Overview (07/04/2019): 07/04/2019: presented to [facility], r/o for acute process. Transfer to [facility] for dating confirmation. Reports no BM [...] on file Legal Sex Female 11:55 PM EXECUTIVE ASSISTANT TO PRESIDENT Gender Identity Not on file Sexual Orientation Not on file Last Filed Vital Signs Vital Sign Reading Time Taken Comments Blood Pressure 101/69 12/31/2024 5:25 PM EXECUTIVE ASSISTANT TO PRESIDENT Pulse 77 12/31/2024 5:25 PM EXECUTIVE ASSISTANT TO PRESIDENT Temperature 37.1 C (98.7 F) 12/31/2024 2:09 PM EXECUTIVE ASSISTANT TO PRESIDENT Respiratory Rate 18 12/31/2024 5:25 PM EXECUTIVE ASSISTANT TO PRESIDENT Oxygen Saturation 100% 12/31/2024 5:25 PM EXECUTIVE ASSISTANT TO PRESIDENT Inhaled Oxygen Concentration - - Weight 72.7 kg (160 lb 4.4 oz) 12/31/2024 2:09 P M EXECUTIVE ASSISTANT TO PRESIDENT Height 165.1 cm (5' 5 ) 12/31/2024 2:09 PM EXECUTIVE ASSISTANT TO PRESIDENT Body Mass Index 26.67 12/31/2024 2:09 PM EXECUTIVE ASSISTANT TO PRESIDENT Plan of Treatment Not on file Procedures Procedure Name Priority Date/Time Associated Diagnosis Comments CT CHEST PE W CONTRAST ED 3:51 PM EXECUTIVE ASSISTANT TO PRESIDENT POCT HCG, URINE Routine 12/31/2024 3:19 PM EXECUTIVE ASSISTANT TO PRESIDENT XR CHEST PA LATERAL 2 VIEWS ED 12/31/2024 2:26 PM EXECUTIVE ASSISTANT TO PRESIDENT EGFR STAT 12/31/2024 2:16 PM EXECUTIVE ASSISTANT TO PRESIDENT DIFFERENTIAL AUTO STAT 12/31/2024 2:1 6 PM EXECUTIVE ASSISTANT TO PRESIDENT D-DIMER, QUANTITATIVE STAT 12/31/2024 2:16 PM EXECUTIVE ASSISTANT TO PRESIDENT COMPREHENSIVE METABOLIC PANEL STAT 12/31/2024 2:16 PM EXECUTIVE ASSISTANT TO PRESIDENT CBC WITH AUTO DIFFERENTIAL STAT 12/31/2024 2:16 PM EXECUTIVE ASSISTANT TO PRESIDENT INFLUENZA A/B, RSV, AND COVID-19 PCR STAT 12/31/2024 2:16 PM EXECUTIVE ASSISTANT TO PRESIDENT from Last 3 Months Results * CT Chest PE (CTA) W Contrast (12/31/2024 3:51 PM EXECUTIVE ASSISTANT TO PRESIDENT) Anatomical Region Laterality Modality Body N/A Computed Tomogra phy 12/31/2024 4:49 PM EXECUTIVE ASSISTANT TO PRESIDENT Narrative 12/31/2024 5:03 PM EXECUTIVE ASSISTANT TO PRESIDENT EXAM DESCRIPTION: CT CHEST PE (CTA) W [...] Quang Decker M.D. LC: GABRIEL Report ID: [id number] Reading Location: [id number] Procedure Note Yumiko Decker MD - 12/31/2024 [...] Quang Decker M.D. LC: GABRIEL Report ID: [id number] Reading Location: [place] [address] [facility] PROCEDURES Final Result * POCT hCG, urine (12/31/2024 3:19 PM EXECUTIVE ASSISTANT TO PRESIDENT) HCG, ur, POC Negative Negative Lot Number [id number] QC Backgroud Clear Acceptable QC Control Line Acceptable Urine 12/31/2024 3:19 PM EXECUTIVE ASSISTANT TO PRESIDENT [facility] POINT OF CARE TEST ORDERABLES F inal Result * XR Chest PA Lateral 2 Views (12/31/2024 2:26 PM EXECUTIVE ASSISTANT TO PRESIDENT) Anatomical Region Laterality Modality Body, Chest N/A Computed Radiogr aphy 12/31/2024 2:43 PM EXECUTIVE ASSISTANT TO PRESIDENT Narrative 12/31/2024 2:43 PM EXECUTIVE ASSISTANT TO PRESIDENT EXAM DESCRIPTION: XR CHEST PA LATERAL 2 [...] by Remberto Carney M.D. JR: Report ID: [id number] Reading Location: [id number] Procedure Note Remberto Carney MD - 12/31/2024 [...] by Remberto Carney M.D. JR: Report ID: [id number] Reading Location: [place] [address] [place] [facility] IMG XR PROCEDURES Final Result * Influenza A/B, RSV, and COVID-19 PCR Nasopharyngeal (12/31/2024 2:16 PM EXECUTIVE ASSISTANT TO PRESIDENT) Pathologist [facility] COVID-19 RNA Negative Negative Comment:Testing performed by : [address], [address] Influenza A RNA Negative Negative [facility] Comment:Testing performed by : [address] [address] Influenza B RNA Negative Negative [facility] Comment:Testing performed by : [address], [address] RSV RNA Negative Negative [facility] Comment: Interpretive data: Testing performed by [facility]. This test is performed using the [employer] Xpert Xpress CoV-2/Flu/RSV plus assay. This is a multiplex, real-time reverse transcriptase PCR assay intended for the qualitative detection of nucleic acid from SARS-CoV-2, influenza A, influenza B, and respiratory syncytial virus. This assay has been cleared by the [place] Food and Drug administration. The performance characteristics have been verified by the [facility]. Results must be considered in the clinical context, and a negative result does not rule out infection. Interpretive Data last revised 2023 Testing performed by: [address] [address] Nasopharyngeal 12/31/2024 2: 16 PM EXECUTIVE ASSISTANT TO PRESIDENT 12/31/2024 2:24 PM EXECUTIVE ASSISTANT TO PRESIDENT Narrative YEVGENIY - 12/31/2024 3:09 PM EXECUTIVE ASSISTANT TO PRESIDENT Is the Patient experiencing symptoms consistent with COVID?->Yes us [facility] MICROBIOLOGY - GENERAL ORDE RABLES Final Result Performing Organization Address City/State/[facility] de Phone Number YEVGENIY [facility] Department [place] [address] * eGFR (12/31/2024 2:16 PM EXECUTIVE ASSISTANT TO PRESIDENT) Pathologist [facility] eGFR >90 >=60 mL/min/1. 73 [...] was last reviewed 2021. Testing performed by: [address] [address] Blood 12/31/2024 2:16 PM EXECUTIVE ASSISTANT TO PRESIDENT 12/31/2024 2:24 PM EXECUTIVE ASSISTANT TO PRESIDENT us [facility] BLOOD ORDERABLES Final Resu lt Performing Organization Address [facility] Co de Phone Number YEVGENIY [facility] [place] [address] * (ABNORMAL) Differential, auto (12/31/2024 2:16 PM EXECUTIVE ASSISTANT TO PRESIDENT) Pathologist [facility] Neutrophil abs 6.0 1.5 - 6.5 K/cumm Comment:Testing performed by : [address] [address] Imm gran abs 0.0 0.0 - 0.1 K/cumm YEVGENIY Comment:Testing performed by : [address] [address] Lymphocyte abs 2.7 0.8 - 3.3 K/cumm C[facility]ER Comment:Testing performed by : [address], [place]., [address] Monocyte abs 0.9(H) 0.2 - 0.8 K/cumm CERNER Comment:Testing performed by : [address], [place]., [address] Eosinophil abs 0.1 0.0 - 0.5 K/cumm [facility] Comment:Testing performed by : [address], [place]., [address] Basophil abs 0.0 0.0 - 0.1 K/cumm [facility] Comment:Testing performed by : [address] [address] Neutrophil pct 61.6 % [facility] Comment: Interpretive Data Percent cell count reference ranges are not reported, since discordance with absolute values may lead to misinterpretation of CBC data. Current Interpretive Data was last revised on 2018. Testing performed by: [address] [address] Imm gran pct 0.3 % [facility] Comment: Interpretive Data Percent cell count reference ranges are not reported, since discordance with absolute values may lead to misinterpretation of CBC data. Current Interpretive Data was last revised on 2018. Testing performed by: [address] [address] Lymphocyte pct 27.3 % [facility] Comment: Interpretive Data Percent cell count reference ranges are not reported, since discordance with absolute values may lead to misinterpretation of CBC data. Current Interpretive Data was last revised on 2018. Testing performed by: [address] [address] Monocyte pct 9.4 % [facility] Comment: Interpretive Data Percent cell count reference ranges are not reported, since discordance with absolute values may lead to misinterpretation of CBC data. Current Interpretive Data was last revised on 2018. Testing performed by: [address] [address] Eosinophil pct 1.2 % [facility] Comment: Interpretive Data Percent cell count reference ranges are not reported, since discordance with absolute values may lead to misinterpretation of CBC data. Current Interpretive Data was last revised on 2018. Testing performed by: [address] [address] Basophil pct 0.2 % YEVGENIY TOM Comment: Interpretive Data Percent cell count reference ranges are not reported, since discordance with absolute values may lead to misinterpretation of CBC data. Current Interpretive Data was last revised on 2018. Testing performed by: [address] [address] Blood 12/31/2024 2:16 PM EXECUTIVE ASSISTANT TO PRESIDENT 12/31/2024 2:24 PM EXECUTIVE ASSISTANT TO PRESIDENT us [facility] BLOOD ORDERABLES Final Resu lt YEVGENIY [facility] [place] [address] * (ABNORMAL) CBC with auto differential (12/31/2024 2:16 PM EXECUTIVE ASSISTANT TO PRESIDENT) WBC 9.8 3.8 - 9.9 K/cumm Comment:Testing performed by : [address] [address] Hgb 12.8 11.9 - 15.5 g/dL YEVGENIY TOM Comment:Testing performed by : [address] [address] Hct 40.0 35.6 - 45.5 % YEVGENIY TOM Comment:Testing performed by : [address] [address] Plt 288 150 - 400 K/cumm YEVGENIY TOM Comment:Testing performed by : [address] [address] MPV 9.7 9.1 - 12.3 fL YEVGENIY TOM Comment:Testing performed by : [address] [address] RBC 4.74 3.90 - 5.20 M/cumm YEVGENIY TOM Comment:Testing performed by : [address] [address] MCV 84.4 81.3 - 96.4 fL YEVGENIY Comment:Testing performed by : [address] [address] MCH 27.0(L) 27.1 - 33.3 pg YEVGENIY TOM Comment:Testing performed by : [address] [address] MCHC 32.0(L) 32.3 - 35.7 g/dL YEVGENIY TOM Comment:Testing performed by : [address] [address] RDW CV 12.2 11.1 - 14.9 % YEVGENIY Comment:Testing performed by : [address] [address] RDW SD 36.9 35.7 - 48.1 fL YEVGENIY Comment:Testing performed by : [address] [address] NRBC abs 0.00 0.00 - 0.01 K/cumm YEVGENIY Comment:Testing performed by : [address] [address] Blood 12/31/2024 2:16 PM EXECUTIVE ASSISTANT TO PRESIDENT 12/31/2024 2:24 PM EXECUTIVE ASSISTANT TO PRESIDENT us [facility] BLOOD ORDERABLES Final Resu lt YEVGENIY [address] [facility] Department of Laboratories [place], [place] [id number] * (ABNORMAL) D-dimer, quantitative (12/31/2024 2:16 PM EXECUTIVE ASSISTANT TO PRESIDENT) D-Dimer 720(H) <=499 ng/mL FEU Comment: Interpretive [...] last revised on 2019. Testing performed by: [address] [address] Blood 12/31/2024 2:16 PM EXECUTIVE ASSISTANT TO PRESIDENT 12/31/2024 2:24 PM EXECUTIVE ASSISTANT TO PRESIDENT us [facility] BLOOD ORDERABLES Final Resu lt YEVGENIY [address] Department [place] [address] * (ABNORMAL) Comprehensive metabolic panel (12/31/2024 2:16 PM EXECUTIVE ASSISTANT TO PRESIDENT) Sodium 137 135 - 145 mmol/L Comment:Testing performed by : [address] [address] Potassium, pl 4.1 3.3 - 4.9 mmol/L YEVGENIY Comment:Testing performed by : [address] [address] Chloride 103 97 - 110 mmol/L YEVGENIY Comment:Testing performed by : [address] [address] CO2 24 22 - 32 mmol/L YEVGENIY Comment:Testing performed by : [address] [address] Anion gap 10 2 - 15 mmol/L YEVGENIY Comment:Testing performed by : [address] [address] BUN 11 6 - 25 mg/dL YEVGENIY Comment:Testing performed by : [address] [address] Creatinine 0.57(L) 0.60 - 1.10 mg/dL YEVGENIY Comment:Testing performed by : [address] [address] Glucose 89 70 - 199 mg/dL YEVGENIY [...] was last revised 2022. Testing performed by: [address] [address] Calcium 9.7 8.5 - 10.3 mg/dL YEVGENIY Comment:Testing performed by : [address] [address] Bilirubin, total 0.2 0.1 - 1.2 mg/dL YEVGENIY Comment:Testing performed by : [address] [address] Protein, pl 7.9 6.5 - 8.5 g/dL YEVGENIY Comment:Testing performed by : [address] [address] Albumin 4.4 3.5 - 5.0 g/dL YEVGENIY Comment:Testing performed by : [address] [address] Alk phos 89 40 - 130 Units/L YEVGENIY Comment:Testing performed by : [address] [address] ALT 21 7 - 45 Units/L YEVGENIY Comment:Testing performed by : [address] [address] AST 24 10 - 45 Units/L YEVGENIY Comment:Testing performed by : [address] [address] Blood 12/31/2024 2:16 PM EXECUTIVE ASSISTANT TO PRESIDENT 12/31/2024 2:24 PM EXECUTIVE ASSISTANT TO PRESIDENT [facility] BLOOD ORDERABLES Final Resu lt [facility] [address] [facility] [place] [address] from Last 3 Months Insurance [facility] Care Teams Impact Hammer Operator Relationship Specialty Start Date End Date Tammi Menon APRN [address] [place] [address] PCP - General Family Medicine 12/31/24
--- OUTSIDE RECORDS SUMMARY | 2025-02-19 12:46 | XMS_ITS | Clinical Summary ---
Author Organization [facility] Address [facility]ly [facility] [place] [address] Care Team Providers Care Technical Sales Engineer Name Role Phone Steph Hightower MD Unavailable Tanner Paige MD Primary Care Provider Janell Celaya APNP Unavailable [phone] Allergies Active Allergy Reactions Criticality Noted Date [...] Active Problems Problem Noted Date Diagnosed Date ([facility]/HCC) 05/13/2024 Headache 05/13/2024 Estimated Date of Delivery Comme nts Yes 09/17/2025 Encounters Date Type Department Care Team Description 02/13/2025 8:45 PM CDT - 02/13/2025 10:19 PM CDT Emergency [facility] [address] [place] [address] Nacho Recinos MD Vomiting Discharge Disposition: Home or Self Care (Routine Discharge) 02/13/2025 Travel 02/10/2025 9:44 AM CDT - 02/10/2025 10:15 AM CDT Emergency [facility] [place] [address] Kaitlin Colon MD Vomiting Discharge Disposition: Left Against Medical Advice 02/10/2025 Travel 01/24/2025 12:23 PM CDT - 01/24/2025 2:54 PM CDT Emergency [facility] [address] [place] [address] [place] [address] Salty Potts MD Vomiting ; Palpitations Discharge Disposition: Home or Self Care (Routine Discharge) 01/24/2025 Travel 01/21/2025 Telephone [facility] [address] [place] [address] Steph Hightower MD Stress Test 01/21/2025 Scan [facility] [address] [place] [address] Scanned, Doc Pccl Stress Test (SCAN) 01/18/2025 8:06 AM CDT - 01/18/2025 11:59 PM CDT Hospital Encounter [facility] [address] [place] [address] Sami Mehta, DO Discharge Disposition: Home or Self Care (Routine Discharge) 01/17/2025 3:47 PM CDT - 01/17/2025 9:05 PM CDT Emergency [facility] [address] [place] [address] Sami Mehta, DO Leg Pain Discharge Disposition: Home or Self Care (Routine Discharge) 01/17/2025 Travel 01/14/2025 1:05 PM CDT - 01/14/2025 11:59 PM CDT Hospital Encounter [facility] [address] [place] [address] [place] [address] Shawn Mcginnis MD Discharge Disposition: Home or Self Care (Routine Discharge) 01/14/2025 Orders Only [facility] [address] [place] [address] [place] [address] Shawn Mcginnis MD 01/13/2025 2:01 PM CDT - 01/13/2025 6:59 PM CDT Emergency [facility] [address] [place] [address] [place] [address] Kaitlin Colon MD Complications Discharge Disposition: Home or Self Care (Routine Discharge) 01/13/2025 Travel 12/01/2024 7:33 PM FRONT MAN - 12/01/2024 9:34 PM FRONT MAN Emergency [facility] [address] [place] [address] [place] [address] Wayne Ledesma MD Body Aches; Cough Discharge [...] Recorded Patient Health Questionnaire-2 Score 0 05/13/2024 [facility] - Occupational Stress Questionnaire Answer Date [...] A & B STAT 12/01/2024 7:50 PM FRONT MAN CORONAVIRUS (COVID-19) ANTIGEN STAT 12/01/2024 7:50 PM FRONT MAN from Last 3 Months Results * (ABNORMAL) COMPREHENSIVE METABOLIC PANEL (02/13/2025 9:13 PM CDT) Only the most recent of3 resultswithin the time period is included. SODIUM S/P/B 137 136 - 145 MMOL/L 02/13/2025 9:[address] [facility] POTASSIUM S/P/B 3.8 3.5 - 5.1 MMOL/L 02/13/2025 9:[address] [facility] Comment:MILD HEMOLYSIS, RESU LT MAY BE AFFECTED. CHLORIDE S/P/B 101 98 - 107 MMOL/L 02/13/2025 9:[address] [facility] CO2 28.8 21.0 - 32.0 MMOL/L 02/13/2025 9:[address] [facility] GLUCOSE 89 70 - 99 MG/DL 02/13/2025 9:[address] [facility] Comment: FASTING GLUCOSE 100 TO 125 MG/DL IS CONSISTENT WITH IMPAIRED FASTING GLUCOSE. FASTING GLUCOSE >125 MG/DL IS CONSISTENT WITH DIABETES. RANDOM GLUCOSE >200 MG/DL WITH HYPERGLYCEMIC SYMPTOMS IS CONSISTENT WITH DIABETES. PER ADA GUIDELINES BUN 9 6 - 24 MG/DL 02/13/2025 9:[address] [facility] CREATININE S/P/B 0.54(L) 0.55 - 1.02 MG/DL 02/13/2025 9:[address] [facility] CALCIUM S/P/B 9.2 8.4 - 10.5 MG/DL 02/13/2025 9:[address] [facility] BILIRUBIN TOTAL S/P/B 0.4 0.2 - 1.0 MG/DL 02/13/2025 9:[address] [facility] Comment: THIS ASSAY IS NOT RECOMMENDED FOR PATIENTS UNDERGOING TREATMENT WITH ELTROMBOPAG DUE TO THE POTENTIAL FOR FALSELY ELEVATED RESULTS. ALKALINE PHOSPHATASE S/P/B 71 37 - 98 U/L 02/13/2025 9:[address] [facility] AST 32 15 - 37 U/L 02/13/2025 9:44 PM [facility] Comment:MILD HEMOLYSIS, RESU LT MAY BE AFFECTED. ALT 23 14 - 59 U/L 02/13/2025 9:[address] [facility] TOTAL PROTEIN S/P/B 8.1 6.4 - 8.2 G/DL 02/13/2025 9:44 PM [facility] ALBUMIN S/P/B 3.6 3.4 - 5.0 G/DL 02/13/2025 9:44 PM [facility] ANION GAP 7.2 5.0 - 15.0 MMOL/L 02/13/2025 9:[address] [facility] OSMOLALITY (CALC) 282 MOSM/KG 025 9:44 PM [facility] Comment:REFERENCE RANGE NOT ESTABLISHED GFR ESTIMATE >90 >89 ML/MIN/1. 73 M2 02/13/2025 9:[address] [facility] GFR NOTES GFR REFERENCE S: 02/13/2025 9:[address] [facility] Comment: THE ESTIMATED GFR IS [...] us Nacho Recinos MD LABORATORY Final Result [facility] [address] [place] [address], * (ABNORMAL) CBC W/DIFF AUTOMATED (02/13/2025 9:13 PM CDT) Only the most recent of4 resultswithin the time period is included. WBC 13.49(H) 4.00 - 10.80 x10'3/uL 02/13/2025 9:[address] [facility] RBC 4.66 4.10 - 5.40 x10'6/uL 02/13/2025 9:[address] [facility] HGB 12.6 12.0 - 16.0 G/DL 02/13/2025 9:[address] [facility] HCT 38.5 36.0 - 47.0 % 02/13/2025 9:[address] [facility] MCV 82.6 78.0 - 100.0 FL 02/13/2025 9:[address] [facility] MCH 27.0 27.0 - 31.0 PG 02/13/2025 9:[address] [facility] MCHC 32.7(L) 33.0 - 36.0 G/DL 02/13/2025 9:[address] [facility] RDW 12.4 11.5 - 14.5 % 02/13/2025 9:[address] [facility] PLT 347 150 - 350 x10'3/uL 02/13/2025 9:[address] [facility] MPV 9.3 7.4 - 10.4 FL 02/13/2025 9:[address] [facility] CBC COMMENT NORMAL REFERENCE RANGE NOT ESTABLISHED FOR THE PROPORTIONAL LEUKOCYTE DIFFERENTIAL. 02/13/2025 9:[address] [facility] NEUTROPHILS % 71.1 % 02/13/2025 9:[address] [facility] LYMPHOCYTES % 21.2 % 02/13/2025 9:[address] [facility] MONOCYTES % 6.4 % 02/13/2025 9:[address] [facility] EOSINOPHILS % 0.7 % 02/13/2025 9:[address] [facility] BASOPHILS % 0.2 % 02/13/2025 9:[address] [facility] IMMATURE GRANS % 0.4 % 02/14/20 9:[address] [facility] NRBC % 0.0 % 02/13/2025 9:[address] [facility] ABS. NEUTROPHILS 9.60(H) 1.60 - 8.30 x10'3/uL 02/13/2025 9:[address] [facility] ABS. LYMPHOCYTES 2.86 0.80 - 4.70 x10'3/uL 02/13/2025 9:[address] [facility] ABS. MONOCYTES 0.86 0.00 - 1.50 x10'3/uL 02/13/2025 9:[address] [facility] ABS. EOSINOPHILS 0.09 0.00 - 0.40 x10'3/uL 02/13/2025 9:[address] [facility] ABS. BASOPHILS 0.03 0.00 - 0.20 x10'3/uL 02/13/2025 9:[address] [facility] ABS. IMMATURE GRANULOCYTES 0.05(H) 0.00 - 0.03 x10'3/uL 02/13/2025 9:[address] [facility] ABS. NUCLEATED RBC'S 0.00 0.00 - 0.01 x10'3/uL 02/13/2025 9:[address] [facility] 02/13/2025 9:13 PM CDT us Nacho Recinos MD LABORATORY Final Result [facility] [address] [place] [address], * (ABNORMAL) URINALYSIS (02/13/2025 9:06 PM CDT) Only the most recent of3 resultswithin the time period is included. COLOR (U) YELLOW 02/13/2025 9:[address] [facility] TRANSPARENCY CLEAR 02/13/2025 9:[address] [facility] SPECIFIC GRAVITY (U) 1.030(H) 1.000 - 1.025 02/13/2025 9:[address] [facility] Comment:EQUAL TO OR GREATER THAN U PH 5.5 5.0 - 8.0 02/13/2025 9:[address] [facility] LEUKOCYTES (U) NEGATIVE NEGATIVE 02/13/2025 9:[address] [facility] NITRITES NEGATIVE NEGATIVE 02/13/2025 9:[address] [facility] PROTEIN RANDOM (U) TRACE(A) NEGATIVE 02/13/2025 9:[address] [facility] GLUCOSE (U) NEGATIVE NEGATIVE 02/13/2025 9:[address] [facility] KETONES MG/DL (U) 3+(A) NEGATIVE 02/13/2025 9:[address] [facility] UROBILINOGEN 0.2 <1.0 EU/DL 02/13/2025 9:[address] [facility] BILIRUBIN (U) NEGATIVE NEGATIVE 02/13/2025 9:[address] [facility] BLOOD (U) NEGATIVE NEGATIVE 02/13/2025 9:[address] [facility] WBC/HPF 0-5 0 - 5 /HPF 02/13/2025 9:[address] [facility] RBC/HPF 0-5 0 - 5 /HPF 02/13/2025 9:[address] [facility] EPI/LPF MANY /LPF 02/13/2025 9:[address] [facility] MUCUS PRESENT 02/13/2025 9:[address] [facility] URINE SPECIMEN OBTAINED BY CLEAN CATCH PROCEDURE / Unknown 02/13/2025 9:06 PM CDT us Nachovitor Recinos MD URINE ORDERABLES Final Result [facility] [address] [place] [address], * CORONAVIRUS (COVID-19) ANTIGEN (02/10/2025 9:53 AM CDT) Only the most recent of2 resultswithin the time period is included. CORONAVIRUS ANTIGEN IA NEGATIVE NEGATIVE 02/10/2025 10:[address] [facility] Comment: NEGATIVE RESULTS DO NOT [...] SPECIMEN TYPE NASAL 02/10/2025 9:[address] [facility] NASAL NASAL STRUCTURE / Unknown 02/10/2025 9:53 AM CDT Kaitlin Colon MD MICROBIOLOGY - GENERAL JOSE CORONADO Final Result Performing Organization Address City/[facility]/ZIP Co de Phone Number [facility] [address] [place] [address], * INFLUENZA A & B (02/10/2025 9:53 AM CDT) Only the most recent of2 resultswithin the time period is included. SPECIMEN TYPE (INFLUENZA) NASOPHARYNGEAL SWAB 02/10/2025 9:[address] [facility] INFLUENZA A NEGATIVE NEGATIVE 02/10/2025 10:[address] [facility] INFLUENZA B NEGATIVE NEGATIVE 02/10/2025 10:[address] [facility] Comment: A NEGATIVE RESULT DOES NOT EXCLUDE INFLUENZA VIRUS INFECTION. IF INFLUENZA IS CIRCULATING IN YOUR COMMUNITY, A DIAGNOSIS OF INFLUENZA SHOULD BE CONSIDERED BASED ON A PATIENT'S CLINICAL PRESENTATION AND EMPIRIC ANTIVIRAL TREATMENT SHOULD BE CONSIDERED IF INDICATED. NASOPHARYNGEAL SWAB / Unknown 02/10/2025 9:53 AM CDT us Kaitlin Colon MD MICROBIOLOGY - GENERAL JOSE CORONADO Final Result Performing Organization Address [facility] Co de Phone Number [facility] [address] [place] [address], [place] [phone] * (ABNORMAL) STREP A RAPID (02/10/2025 9:53 AM CDT) SPECIMEN SOURCE THROAT 02/10/2025 9:[address] [facility] RAPID STREP TEST POSITIVE(A) NEGATIVE 02/10/2025 10:[address] [facility] Comment: CALLED TO MATHEW DUFFY 1035 02/10/25 AFW READ BACK AND VERIFIED STRUCTURE OF ANTERIOR PORTION OF NECK / Unknown 02/10/2025 9:53 AM CDT us Kaitlin Colon MD MICROBIOLOGY - GENERAL JOSE CORONADO Final Result [facility] [address] [place] [address], * XR CHEST PORTABLE (01/24/2025 1:48 PM CDT) Anatomical Region Laterality Modality Chest Radiographic Jazmin ging 01/24/2025 1:50 PM CDT Impressions 01/24/2025 1:51 PM CDT IMPRESSION: No significant change. No acute disease. Referred By: Interpreted By: Paulino Mitchell MD, 01/24/2025 1:50 PM Narrative 01/24/2025 1:51 PM CDT [place] [address] [place] [address] Examination: Portable chest. Exam time: 1342 hours. Clinical history: Left-sided chest pain. Palpitations. Comparison: 05/18/2023. Technique: AP upright view. Findings: The cardiomediastinal silhouette is stable. The heart remains within normal limits for size. Pulmonary vascularity is within normal limits. The lungs and pleural spaces remain free of any active process. The visualized bony thorax is unremarkable. Procedure Note Paulino Mitchell MD - 01/24/2025 [place] [address] [facility] [place] [address] Examination: Portable chest. Exam time: 1342 hours. [...] HCG TEST POSITIVE 01/24/2025 1:[address] [facility] SPECIFIC GRAVITY >1.030 01/24/2025 1:[address] [facility] URINE SPECIMEN FROM URETHRA / Unknown 01/24/2025 1:20 PM CDT us Salty Potts MD URINE ORDERABLES Final Resu lt Performing Organization Address [facility]/ZIP Co de Phone Number [facility] [address] [place] [address], * TROPONIN, QUANT (01/24/2025 1:06 PM CDT) Only the most recent of3 resultswithin the time period is included. TROPONIN I HIGH SENSITIVITY 4 0 - 51 ng/L 01/24/2025 1:[address] [facility] 01/24/2025 1:06 PM CDT us Salty Potts MD LABORATORY Final Resul t Performing Organization Address [facility] Co de Phone Number [facility] [address] [place] [address], [place] [phone] * LIPASE (01/24/2025 1:06 PM CDT) LIPASE 25 16 - 77 UNITS/L 01/24/2025 1:[address] [facility] 01/24/2025 1:06 PM CDT us Salty Potts MD LABORATORY Final Resul t Performing Organization Address City/[facility]/ZIP Co de Phone Number [facility] [address] [place] [address], [place] [phone] * ECG 12 lead (01/24/2025 12:48 PM CDT) Only the most recent of2 resultswithin the time period is included. 01/24/2025 12:4 8 PM CDT Narrative [facility] - 01/24/2025 1:39 PM [address]T [address] [place] [address] Test Date: 2025-01-24 Pat Name: LIBRADO [facility] Department: 3 Room: EXAM 404 Gender: Female Visiting Housekeeper: : 2000 Requested By: SALTY POTTS Order Number: [id number] Fifi QUIGLEY: Logan Wong Measurements Intervals [place] Rate: 79 P: 71 RI: 147 QRS: 52 QRSD: 80 T: 45 QT: 337 QTc: 388 Interpretive Statements SINUS RHYTHM Procedure Note Logan Wong MD - 01/24/[address] [place] [address] Test Date: 2025-01-24 Pat Name: LIBRADO MEJIA Department: 3 Room: EXAM 404 Gender: Female Visiting Housekeeper: : 2000 Requested By: SALTY POTTS Order Number: [id number] Fifi QUIGLEY: Logan Wong Measurements Intervals [place] Rate: 79 P: 71 RI: 147 QRS: 52 QRSD: 80 T: 45 QT: 337 QTc: 388 Interpretive Statements SINUS RHYTHM Salty Potts MD ECG ORDERABLES Final Resul t Performing Organization Address City/[facility]/ZIP Co de Phone Number [facility] * STRESS TEST (01/21/2025) us Doc Pccl Scanned SCANNING Final Result Performing Organization Address [facility] Co de Phone Number [facility] ONBASE * USV AKOSUA DUPLEX LOW EXT ADAM (01/18/2025 8:57 AM CDT) Anatomical Region Laterality Modality Extremity Ultrasound 01/18/2025 9:23 AM CDT Impressions 01/18/2025 9:24 AM CDT IMPRESSION: No evidence of deep venous thrombosis. Ordered By: SAMI MEHTA Interpreted By: Paulino Mitchell MD, 01/18/2025 9:23 AM Narrative 01/18/2025 9:24 AM CDT [address] [place] [address] Examination: Bilateral lower extremity venous color Doppler [...] Procedure Note Paulino Mitchell MD - 01/18/[address] [place] [address] Examination: Bilateral lower extremity venous color Doppler [...] 7:32 PM Narrative 01/17/2025 7:34 PM CDT [address] [place] [address] CTA CHEST WITH CONTRAST PULMONARY EMBOLISM PROTOCOL [...] Procedure Note German Chang MD - 01/17/[address] [place] [address] CTA CHEST WITH CONTRAST PULMONARY EMBOLISM PROTOCOL [...] - 500 ng{FEU}/mL 01/17/2025 6:[address] [facility] Comment: CALLED TO MATHEW DUFFY [...] DO LABORATORY Final Result Performing Organization Address [facility] Co de Phone Number [facility] [address] [place] [address], * (ABNORMAL) HCG QUANT (SERUM)-CHORIONIC GONADOTROPIN (01/14/2025 1:15 PM CDT) Only the most recent of2 resultswithin the time period is included. HCG QUANTITATIVE 5,590(H) 0.0 - 6.0 MIU/ML 01/14/2025 2:[address] [facility] Comment: WEEKS OF REFERENCE RANGES [...] LABORATORY Final Resu lt Performing Organization Address [facility] Co de Phone Number [facility] [address] [place] [address], [place] [phone] * US OB TRANSVAG (01/13/2025 6:37 PM [...] 5:28 PM Narrative 01/13/2025 5:39 PM [address]T [address] [place] [address] EXAMINATION: US OB TRANSVAG HISTORY: Abdominal pain, [...] Procedure Note Taiwo Haddad MD - 01/13/[address] [place] [address] EXAMINATION: US OB TRANSVAG HISTORY: Abdominal pain, [...] interstitialectopic gestation. Recommend close clinical follow-up and ednrt-vwkcyldbfm-[id number] ultrasound as discussed above. 2. Estimated gestational age by mean sac diameter is 5 weeks, 2 days. 3. No evidence of ovarian torsion. 4. Trace free pelvic fluid. Referred By: Interpreted By: Taiwo Haddad MD, 01/13/2025 5:28 PM us Kaitlin Colon MD ULTRASOUND Final Resul t * TYPE AND SCREEN (01/13/2025 4:02 PM CDT) ABO/RH B POSITIVE 01/13/2025 4:[address] [facility] ANTIBODY SCREEN NEGATIVE 01/13/2025 4:[address] [facility] SAMPLE EXPIRATION 01/16/2025,2 359 01/13/2025 4:[address] [facility] 01/13/2025 4:02 PM CDT Kaitlin Colon MD BLOOD BANK TEST ORDERABLES Final Result [facility] [address] [place] [address], * CULTURE URINE (01/13/2025 3:43 PM CDT) SPEC DESCRIPTION URINE CLEAN CATCH 01/13/2025 3:[address] [facility] SPECIAL REQUESTS NO SPECIAL REQUEST 01/13/2025 3:[address] [facility] CULTURE RESULT NO GROWTH (< OR = 1,000 CFU/ML) 01/15/2025 10:12 AM CDT [facility] URINE SPECIMEN OBTAINED BY CLEAN CATCH PROCEDURE / Unknown 01/13/2025 3:43 PM CDT 01/13/2025 3:51 PM CDT Kaitlin Colon MD [facility]BIOLOGY - [facility] Final Result [facility] [address] [place] [address], [place] [id number] [facility] [address] [place], [place] [address] [place] [address], * (ABNORMAL) BASIC METABOLIC PANEL (01/13/2025 3:23 PM CDT) SODIUM S/P/B 136 136 - 145 MMOL/L 01/13/2025 4:22 PM [facility] POTASSIUM S/P/B 3.6 3.5 - 5.1 MMOL/L 01/13/2025 4:22 PM [facility] CHLORIDE S/P/B 101 98 - 107 MMOL/L 01/13/2025 4:22 PM [facility] CO2 27.7 21.0 - 32.0 MMOL/L 01/13/2025 4:22 PM [facility] GLUCOSE 106(H) 70 - 99 MG/DL 01/13/2025 4:22 PM [facility] Comment: FASTING GLUCOSE 100 TO 125 MG/DL IS CONSISTENT WITH IMPAIRED FASTING GLUCOSE. FASTING GLUCOSE >125 MG/DL IS CONSISTENT WITH DIABETES. RANDOM GLUCOSE >200 MG/DL WITH HYPERGLYCEMIC SYMPTOMS IS CONSISTENT WITH DIABETES. PER ADA GUIDELINES BUN 11 6 - 24 MG/DL 01/13/2025 4:22 PM [facility] CREATININE S/P/B 0.65 0.55 - 1.02 MG/DL 01/13/2025 4:22 PM [facility] CALCIUM S/P/B 9.0 8.4 - 10.5 MG/DL 01/13/2025 4:22 PM [facility] ANION GAP 7.3 5.0 - 15.0 MMOL/L 01/13/2025 4:22 PM [facility] OSMOLALITY (CALC) 282 MOSM/KG 025 4:22 PM [facility] Comment:REFERENCE RANGE NOT ESTABLISHED GFR ESTIMATE >90 >89 ML/MIN/1. 73 M2 01/13/2025 4:22 PM [facility] GFR NOTES GFR REFERENCE S: 01/13/2025 4:22 PM [facility] Comment: THE ESTIMATED GFR IS [...] Kaitlin Colon MD LABORATORY Final Resul t [facility] [address] [place] [address], from Last 3 Months Insurance FLOOD Care Teams Technical Sales Engineer Relationship Specialty Start Date End Date Tanner Paige MD [address] [place] [address] PCP - General FAMILY PRACTICE 07/01/24 Steph Hightower MD [address] [place] [address] Consulting Physician CARDIOVASCULAR DISEASE 11/07/22 Janell Celaya APNP [address] [place] [address] NURSE PRACTITIONER 12/01/24
[2025-02-19 13:34] LABS: Alanine Aminotransferase 18 U/L (6-35); Alkaline Phosphatase 58 U/L (38-126); Anion Gap 11 mmol/L (4-12); Aspartate Amino Transferase 21 U/L (14-36); Bilirubin,Total 0.2 mg/dL (0.2-1.3); Blood Urea Nitrogen 12 mg/dL (7-17); Carbon Dioxide 21 mmol/L (22-30); Chloride 105 mmol/L (98-107); Estimated Glomerular Filt Rate > 60; Glucose 139 mg/dL (65-110); Potassium 3.2 mmol/L (3.4-5.0); Sodium 137 mmol/L (137-145)
[2025-02-19 13:36] LABS: Add Urine Microscopic? YES; Appearance Urine Cloudy (Clear); Bacteria Urine 2+ /hpf; Bilirubin Urine Negative (Negative); Blood Urine Negative (Negative); Color Urine Yellow (Yellow); Glucose Urine UA Negative (Negative); Ketones Urine 1+ mg/dL (Negative); Leukocyte Esterase Ur Negative LEU/UL (Negative); Mucus Urine Present /lpf; Need Manual Microscopic Reviewed; Nitrate Urine Negative (Negative); Protein Urine Trace mg/dL (Negative); Specific Grav Ur 1.037 (1.001-1.035); Squamous Epithelial Cell Urine Few /hpf (Few)
[2025-02-19] MEDS: DEXTROSE 5%/LACTATED RINGERS 1,000 ML 999 ML IV CONT (13:45)
[2025-02-19] MEDS: ONDANSETRON INJ 4 MG/2 ML VIAL IV PUSH ×2 (13:46→20:52)
[2025-02-19] MEDS: FAMOTIDINE 20 MG/2 ML VIAL IV PUSH (13:46)
[2025-02-19 15:39] VITALS: BP 114/66; PULSE 86
[2025-02-19] MEDS: THIAMINE HCL INJ 100 MG, FOLIC ACID INJ 1 MG, MAGNESIUM SULFATE INJ 1 GM, MULTIVITAMINS... IV CONT (17:24)
[2025-02-19 17:27] VITALS: BMI 26.7
--- NOTE | 2025-02-19 17:27 | OBADM ---
This patient, Yuni Mejia, admitted to the OB room OB Post 115 for observation. Patient/family oriented to hospital policies and general routines including ID bracelet, bed and alarms, visiting hours, pain management, procedures, bathroom and other care routines, personal items, smoking policy, room service/diet, and visiting hours. Patient/Family are encouraged to report perceived risks to care and to ask questions if they do not understand what they are told or what they should do.
[2025-02-19 17:40] VITALS: BP 110/64; PULSE 92
[2025-02-19 19:34] VITALS: BP 120/65; PULSE 76
[2025-02-19] MEDS: CALCIUM CARBONATE (TUMS) 500 MG (200 MG ELEMENTAL) PO (21:41)
[2025-02-19] MEDS: ACETAMINOPHEN 500 MG TABLET 1000 MG PO (21:56)
--- NOTE | 2025-02-19 22:03 | PC.NURSE ---
2134- RN at bedside. Patient called out asking for pepcid. Patient states her stomach feels weird. RN notified patient she cannot have pepcid again yet, RN offered tums, patient agreed. 2139- RN at bedside giving tums. Patient states she now has pain in her forehead describing it as a headache. 2144- RN notified CNM of patient complaints. RN notified CNM that IVF are almost done and that patient has been able to keep everything down PO. RN notified CNM that patient ate a turkey sandwich, cracker barrel, and drank water and a sprite. CNM gave orders for tylenol and to d/c the patient after the IVF are done. 2154- RN at bedside giving tylenol. RN discussed plan of care with patient and notified the patient since she can keep PO food and liquids down that CNM gave d/c orders. Patient agrees with plan of care and has no questions at this time.
[2025-02-19 22:22] VITALS: PULSE 80; O2SAT 98
[2025-02-19 22:23] VITALS: BP 115/67; PULSE 77
--- NOTE | 2025-02-19 22:28 | PC.NURSE ---
2223- RN at bedside discussing plan of care with patient and discharge instructions. Patient agrees with plan of care and has no questions.
--- NOTE | 2025-02-23 17:22 | PM.OBTRLD ---
OB - Triage/Final Diagnosis Visit Information Date of evaluation: 02/19/25 Reason for evaluation: other (nausea) Comments/Additional reasons for admission: I have assessed the risk for this patient, Yuni Sanchez Roberto, and determined that she would benefit from observation care. Evaluation Laboratory results: Laboratory Tests 02/19/25 02/19/25 13:17 13:18 Sodium 137 Potassium 3.2 L Chloride 105 Carbon Dioxide 21 L Anion Gap 11 BUN 12 Creatinine 0.36 L Estim Creat Clear Calc Not Reportable Estimated GFR > 60 Glucose 139 H Calcium 9.0 Total Bilirubin 0.2 AST 21 ALT 18 Alkaline Phosphatase 58 Total Protein 7.0 Albumin 4.0 Urine Color Yellow Urine Appearance Cloudy H Urine pH 6.0 Ur Specific [place] 1.037 H Urine Protein Trace Urine Glucose (UA) Negative Urine Ketones 1+ H Ur Blood (Man) Negative Urine Nitrate Negative Urine Bilirubin Negative Urine Urobilinogen 1.0 Ur Leukocyte Esterase Negative Add Ur Microanalysis Reviewed Urine RBC 3-5 H Urine WBC 6-10 H Ur Squamous Epith Cells Few Urine Bacteria 2+ H Urine Casts 3-5 Urine Mucus Present
== END 2025-02-19 22:28 | disposition home or self-care (01) ==
PROVIDERS: Advanced Practice Midwife; Admitting Provider Obstetrics & Gynecology; Visit Provider Obstetrics & Gynecology
DX: O21.0 Mild hyperemesis gravidarum (principal); Z3A.10 10 weeks gestation of pregnancy
CPT/HCPCS: 36415; 80053; 81001; 96374; 96375; A9270; G0378; G0379; J2405; J3411; J3475; J7121

== ENCOUNTER 2025-02-26 12:02 | Observation (INO) | payer OTHER, SELFPAY ==
--- NOTE | ~2025-02-26 | US_ITS ---
EXAMINATION: US OB limited DATE: 02/26/2025 14:13 INDICATION: Confirm viability. TECHNIQUE: Real-time transabdominal obstetric ultrasound. FINDINGS: No prior studies for comparison. There is an intrauterine gestational sac, with pole identified. The crown rump length measures 4.8 cm, which correlates with a estimated gestational age of 11 weeks 4 days. heart tones ar e identified measuring 157 BPM. IMPRESSION: 1. SL IUP with an EGA of 11 weeks, 4 days (EDC by current ultrasound of 09/13/2025). Reviewed, dictated and finalized at location A. IMPRESSION: 1. SL IUP with an EGA of 11 weeks, 4 days (EDC by current ultrasound of 025).
[2025-02-26 12:36] LABS: Hematocrit 34.3 % (37.0-47.0); Hemoglobin 11.2 g/dL (12.0-15.0); Mean Corpuscular HGB Conc 32.7 g/dl (32-36); Mean Corpuscular Hemoglobin 27.5 pg (26-34); Mean Corpuscular Volume 84.1 fl (80-100); Mean Platelet Volume 9.2 fl (7.4-10.4); Platelet Count Result 310 k/mm3 (150-375); Red Blood Count 4.08 M/mm3 (4.2-5.4); Red Cell Distribution Width 12.5 % (11.5-14.5); White Blood Count 10.8 K/mm3 (4.5-10.0)
[2025-02-26] MEDS: ONDANSETRON INJ 4 MG/2 ML VIAL IV PUSH (12:40)
[2025-02-26] MEDS: DEXTROSE 5%/LACTATED RINGERS 1,000 ML 999 ML IV CONT (12:40)
--- NOTE | 2025-02-26 12:52 | OBADM ---
This patient, Yuni Mejia, admitted to the OB room OB Post 112 for observation. Patient/family oriented to hospital policies and general routines including ID bracelet, bed and alarms, visiting hours, pain management, procedures, bathroom and other care routines, personal items, smoking policy, room service/diet, and visiting hours. Patient/Family are encouraged to report perceived risks to care and to ask questions if they do not understand what they are told or what they should do.
[2025-02-26 13:06] LABS: Add Urine Microscopic? YES; Appearance Urine Cloudy (Clear); Bacteria Urine 4+ /hpf; Bilirubin Urine Negative (Negative); Blood Urine Negative (Negative); Color Urine Dark Yellow (Yellow); Glucose Urine UA Negative (Negative); Hyaline Casts Urine Present /lpf; Ketones Urine 3+ mg/dL (Negative); Leukocyte Esterase Ur Negative LEU/UL (Negative); Mucus Urine Present /lpf; Need Manual Microscopic Reviewed; Nitrate Urine Negative (Negative); Protein Urine 1+ mg/dL (Negative); Specific Grav Ur 1.037 (1.001-1.035); Squamous Epithelial Cell Urine Many /hpf (Few); Urobilinogen Urine 0.2 mg/dL (<2.0); WBC Urine 21-50 /hpf (0-3)
[2025-02-26 13:08] LABS: Alanine Aminotransferase 18 U/L (6-35); Albumin Level 4.1 g/dL (3.5-5.1); Alkaline Phosphatase 51 U/L (38-126); Anion Gap 9 mmol/L (4-12); Aspartate Amino Transferase 32 U/L (14-36); Bilirubin,Total 0.5 mg/dL (0.2-1.3); Blood Urea Nitrogen 12 mg/dL (7-17); Calcium 9.2 mg/dL (8.4-10.2); Carbon Dioxide 23 mmol/L (22-30); Chloride 103 mmol/L (98-107); Estimated Glomerular Filt Rate > 60; Glucose 127 mg/dL (65-110); Potassium 3.7 mmol/L (3.4-5.0); Sodium 135 mmol/L (137-145)
[2025-02-26] MEDS: SODIUM CHLORIDE 0.9% IV 1,000 ML 100 ML IV CONT (13:49)
[2025-02-26] MEDS: cefTRIAXone 2 GM/NS 100 ML 2 GM/100 ML BAG IVPB (13:49)
[2025-02-26] MEDS: FAMOTIDINE 20 MG/2 ML VIAL IV PUSH (13:49)
[2025-02-26 14:08] VITALS: BP 128/74; PULSE 94; PULSE 98; O2SAT 98
--- NOTE | 2025-02-26 15:36 | PC.NURSE ---
1315- patient stated that she had a small amount of bright red bleeding this am. None currently. SPoke with Tamiko Mcnamara CNM, orders for US to assess well being.
--- NOTE | 2025-02-26 15:37 | PC.NURSE ---
1530- Spoke with Tamiko Mcnamara CNM, patient may be discharged to home once she is feeling better.
--- NOTE | 2025-02-26 15:38 | PC.NURSE ---
1535- [facility] doppled at 154. Patient requests to go home.
--- OUTSIDE RECORDS SUMMARY | 2025-02-27 13:02 | XMS_ITS | Encounter Summary ---
Author Organization [facility] Healthcare Address [address] [place] [address] Care Team Providers Care Termite Control Representative Name Role Phone Kera Flanagan NP Primary Care Provider [phone] Tammi Menon APRN Primary Care Provider Encounter Details Date Type Department Care Team (Late st Contact Info) Description 10/25/2023 Orders Only [facility] Home Care Services [address] [place] [address] Carli Whitaker, [facility] Social History Tobacco Use Types [...] on file Legal Sex Female 11:55 PM [employer] INTER[employer]AFER Gender Identity Not on file Sexual Orientation Not on file documented as of this encounter Plan of Treatment Not on file documented as of this encounter Visit Diagnoses Not on filedocumented in this encounter Additional Health Concerns Infection Onset Date Last Indicated Resolved Time COVID: Suspected 12/31/2024 12/31/2024 12/31/2024 3:10 PM [employer] P[employer] INTERLEAFER documented as of this encounter Care Teams Termite Control Representative Relationship Specialty Start Date End Date Kera Flanagan, [place] PCP - General 05/30/22 12/30/24 Tammi Menon APRN [address] [place] [address] PCP - General Family Medicine 12/31/24 documented as of this encounter
--- OUTSIDE RECORDS SUMMARY | 2025-02-27 13:02 | XMS_ITS | Clinical Summary ---
Author Organization [facility] Address [address] [place] [address] Care Team Providers Care Safety Person Name Role Phone Tammi Menon DOREEN Primary [...] have care with Dr. Ortega Denson in [place], [place]. Assessment & Plan (07/04/2019 7:48 PM CDT): - no plans to initiate care in [place] - gave Rx for doxylamine/pyridoxine for nausea - encouraged smoking cessation; recommended she d/w Dr. Addison Denson when she establishes care Abdominal pain in 07/04/2019 Overview (07/04/2019): 07/04/2019: presented to [facility], r/o for acute process. Transfer to [facility] for dating confirmation. 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 Gender Identity Not on file Sexual Orientation [...] Comments Blood Pressure 101/69 12/31/2024 5:25 PM [employer] AND STEEL WORK SUPERVISOR Pulse 77 12/31/2024 5:25 PM [employer] AND STEEL WORK SUPERVISOR Temperature 37.1 C (98.7 F) 12/31/2024 2:09 PM [employer] AND STEEL WORK SUPERVISOR Respiratory Rate 18 12/31/2024 5:25 PM [employer] AND STEEL WORK SUPERVISOR Oxygen Saturation 100% 12/31/2024 5:25 PM [employer] AND STEEL WORK SUPERVISOR Inhaled Oxygen Concentration - - Weight 72.7 kg (160 lb 4.4 oz) 12/31/2024 2:09 P M [employer] AND STEEL WORK SUPERVISOR Height 165.1 cm (5' 5 ) 12/31/2024 2:09 PM [employer] AND STEEL WORK SUPERVISOR Body Mass Index 26.67 12/31/2024 2:09 PM [employer] AND STEEL WORK SUPERVISOR Plan of Treatment Health Maintenance Due Date Last Done Comments Cervical Cancer Screening 1999 Depression Screening 1999 Hepatitis C Screening 1999 Regular Well Visit/Exam 18-64 2017 HPV Vaccines (2 - 3-dose series) 02/02/2017 01/05/2017 DTaP/Tdap/Td Vaccine (7 - Td or Tdap) 06/21/2022 06/21/2012, 06/29/2004, 08/30/2000, Additional history exists Influenza Vaccine (Season Ended) 2025 08/31/2014, 08/18/2010, 08/25/2005 Hepatitis B Screening Completed 07/29/2000 , 04/18/2000, 1999, Additional history exists Varicella Vaccines Completed 08/31/2014, 07/29/2000 Pneumococcal vaccine <65 Aged Out No longer eligible based on patient's age to complete this topic Procedures Procedure Name Priority Date/Time Associated Diagnosis Comments CT CHEST PE W CONTRAST ED 3:51 PM [employer] AND STEEL WORK SUPERVISOR POCT HCG, URINE Routine 12/31/2024 3:19 PM [employer] AND STEEL WORK SUPERVISOR XR CHEST PA LATERAL 2 VIEWS ED 12/31/2024 2:26 PM [employer] AND STEEL WORK SUPERVISOR EGFR STAT 12/31/2024 2:16 PM [employer] AND STEEL WORK SUPERVISOR DIFFERENTIAL AUTO STAT 12/31/2024 2:1 6 PM [employer] AND STEEL WORK SUPERVISOR D-DIMER, QUANTITATIVE STAT 12/31/2024 2:16 PM [employer] AND STEEL WORK SUPERVISOR COMPREHENSIVE METABOLIC PANEL STAT 12/31/2024 2:16 PM [employer] AND STEEL WORK SUPERVISOR CBC WITH AUTO DIFFERENTIAL STAT 12/31/2024 2:16 PM [employer] AND STEEL WORK SUPERVISOR INFLUENZA A/B, RSV, AND COVID-19 PCR STAT 12/31/2024 2:16 PM [employer] AND STEEL WORK SUPERVISOR from Last 3 Months Results * CT Chest PE (CTA) W Contrast (12/31/2024 3:51 PM IR[employer] AND STEEL WORK SUPERVISOR) Anatomical Region Laterality Modality Body N/A Computed Tomogra phy 12/31/2024 4:49 PM [employer] AND STEEL WORK SUPERVISOR Narrative 12/31/2024 5:03 PM IRON AND STEEL WORK SUPERVISOR EXAM DESCRIPTION: CT CHEST PE (CTA) W [...] Quang Decker M.D. LC: GABRIEL Report ID: [id number] Reading Location: [place] [address] Procedure Note Yumiko Decker MD - 12/31/2024 [...] Quang Decker M.D. LC: GABRIEL Report ID: [id number] Reading Location: [place] [address] [address] PROCEDURES Final Result * POCT hCG, urine (12/31/2024 3:19 PM IR[employer] AND STEEL WORK SUPERVISOR) HCG, ur, POC Negative Negative Lot Number [id number] QC Backgroud Clear Acceptable QC Control Line Acceptable Urine 12/31/2024 3:19 PM [employer] AND STEEL WORK SUPERVISOR us Lesley DE LEON POINT OF CARE TEST ORDERABLES F inal Result * XR Chest PA Lateral 2 Views (12/31/2024 2:26 PM [employer] AND STEEL WORK SUPERVISOR) Anatomical Region Laterality Modality Body, Chest N/A Computed Radiogr aphy 12/31/2024 2:43 PM [employer] AND STEEL WORK SUPERVISOR Narrative 12/31/2024 2:43 PM IR[employer] AND STEEL WORK SUPERVISOR EXAM DESCRIPTION: XR CHEST PA LATERAL 2 [...] by Remberto Carney M.D. JR: Report ID: [id number] Reading Location: [id number] Procedure Note Remberto Carney MD - 12/31/2024 [...] by Remberto Carney M.D., JR: Report ID: [id number] Reading Location: [id number] Lesley DE LEON IM XR PROCEDURES Final Result * Influenza A/B, RSV, and COVID-19 PCR Nasopharyngeal (12/31/2024 2:16 PM [employer] AND STEEL WORK SUPERVISOR) COVID-19 RNA Negative Negative Comment:Testing performed by : [facility], [address] [place] [address]., [address] Influenza A RNA Negative Negative [facility] Comment:Testing performed by : [address] [address] Influenza B RNA Negative Negative [facility] Comment:Testing performed by : [facility], [address] [place] [address]., [address] RSV RNA Negative Negative [facility] Comment: Interpretive data: Testing performed by [facility]. This test is performed using the HeadMix Xpert Xpress CoV-2/Flu/RSV plus assay. This is a multiplex, real-time reverse transcriptase PCR assay intended for the qualitative detection of nucleic acid from SARS-CoV-2, influenza A, influenza B, and respiratory syncytial virus. This assay has been cleared by the [place] Food and Drug administration. The performance characteristics have been verified by the [facility]. Results must be considered in the clinical context, and a negative result does not rule out infection. Interpretive Data last revised 2023 Testing performed by: [address] [address] Nasopharyngeal 12/31/2024 2: 16 PM [employer] AND STEEL WORK SUPERVISOR 12/31/2024 2:24 PM [employer] AND STEEL WORK SUPERVISOR Narrative YEVGENIY - 12/31/2024 3:09 PM [employer] AND STEEL WORK SUPERVISOR Is the Patient experiencing symptoms consistent with COVID?->Yes Lesley DE [facility] LAB MICROBIOLOGY - GENERAL JOES CORONADO Final Result [facility] [id number] [facility] Department [place] [address] * eGFR (12/31/2024 2:16 PM [employer] AND STEEL WORK SUPERVISOR) eGFR >90 >=60 mL/min/1. 73 m2 Comment: [...] last reviewed 2021. Testing performed by: [address] [address] Blood 12/31/2024 2:16 PM [employer] AND STEEL WORK SUPERVISOR 12/31/2024 2:24 PM [employer] AND STEEL WORK SUPERVISOR us Lesley DE LEON LAB BLOOD ORDERABLES Final Resu lt YEVGENIY [address] [facility] Department [place] [address] * (ABNORMAL) Differential, auto (12/31/2024 2:16 PM [employer] AND STEEL WORK SUPERVISOR) Neutrophil abs 6.0 1.5 - 6.5 K/cumm Comment:Testing performed by : [address] [address] Imm gran abs 0.0 0.0 - 0.1 K/cumm [facility] Comment:Testing performed by : [address] [address] Lymphocyte abs 2.7 0.8 - 3.3 K/cumm [facility] Comment:Testing performed by : [address] [address] Monocyte abs 0.9(H) 0.2 - 0.8 K/cumm [facility] Comment:Testing performed by : [address] [address] Eosinophil abs 0.1 0.0 - 0.5 K/cumm [facility] Comment:Testing performed by : [address] [address] Basophil abs 0.0 0.0 - 0.1 K/cumm [facility]EV[facility] Comment:Testing performed by : [address] [address] Neutrophil pct 61.6 % [facility] Comment: Interpretive Data Percent cell count reference ranges are not reported, since discordance with absolute values may lead to misinterpretation of CBC data. Current Interpretive Data was last revised on 2018. Testing performed by: [address] [address] Imm gran pct 0.3 % [facility] Comment: Interpretive Data Percent cell count reference ranges are not reported, since discordance with absolute values may lead to misinterpretation of CBC data. Current Interpretive Data was last revised on 2018. Testing performed by: [address] [address] Lymphocyte pct 27.3 % [facility] Comment: Interpretive Data Percent cell count reference ranges are not reported, since discordance with absolute values may lead to misinterpretation of CBC data. Current Interpretive Data was last revised on 2018. Testing performed by: [address] [address] Monocyte pct 9.4 % [facility] Comment: Interpretive Data Percent cell count reference ranges are not reported, since discordance with absolute values may lead to misinterpretation of CBC data. Current Interpretive Data was last revised on 2018. Testing performed by: [address] [address] Eosinophil pct 1.2 % [facility] Comment: Interpretive Data Percent cell count reference ranges are not reported, since discordance with absolute values may lead to misinterpretation of CBC data. Current Interpretive Data was last revised on 2018. Testing performed by: [address] [address] Basophil pct 0.2 % [facility] Comment: Interpretive Data Percent cell count reference ranges are not reported, since discordance with absolute values may lead to misinterpretation of CBC data. Current Interpretive Data was last revised on 2018. Testing performed by: [address] [address] Blood 12/31/2024 2:16 PM [employer] AND STEEL WORK SUPERVISOR 12/31/2024 2:24 PM [employer] AND STEEL WORK SUPERVISOR Lesley DE LEON LAB BLOOD ORDERABLES Final Resu lt YEVGENIY [address] [facility] Department [place] [address] * (ABNORMAL) CBC with auto differential (12/31/2024 2:16 PM [employer] AND STEEL WORK SUPERVISOR) WBC 9.8 3.8 - 9.9 K/cumm Comment:Testing performed by : [address] [address] Hgb 12.8 11.9 - 15.5 g/dL [facility] Comment:Testing performed by : [address] [address] Hct 40.0 35.6 - 45.5 % [facility] Comment:Testing performed by : [address] [address] Plt 288 150 - 400 K/cumm [facility] Comment:Testing performed by : [address] [address] MPV 9.7 9.1 - 12.3 fL [facility] Comment:Testing performed by : [address] [address] RBC 4.74 3.90 - 5.20 M/cumm [facility] Comment:Testing performed by : [address] [address] MCV 84.4 81.3 - 96.4 fL [facility] Comment:Testing performed by : [address] [address] MCH 27.0(L) 27.1 - 33.3 pg [facility] Comment:Testing performed by : [address] [address] MCHC 32.0(L) 32.3 - 35.7 g/dL [facility] Comment:Testing performed by : [address] [address] RDW CV 12.2 11.1 - 14.9 % [facility] Comment:Testing performed by : [address], [address] RDW SD 36.9 35.7 - 48.1 fL [facility] Comment:Testing performed by : [facility], [address] [place] [address]., [address] NRBC abs 0.00 0.00 - 0.01 K/cumm YEVGENIY TOM Comment:Testing performed by : [facility], [address] [place] [address]., [address] Blood 12/31/2024 2:16 PM [employer] AND STEEL WORK SUPERVISOR 12/31/2024 2:24 PM [employer] AND STEEL WORK SUPERVISOR Lesleymorgan Soria HI LAB BLOOD ORDERABLES Final Resu lt Performing Organization Address [facility] Co de Phone Number YEVGENIY [phone] [facility] [address] * (ABNORMAL) D-dimer, quantitative (12/31/2024 2:16 PM [employer] AND STEEL WORK SUPERVISOR) D-Dimer 720(H) <=499 ng/mL FEU Comment: Interpretive [...] revised on 2019. Testing performed by: [address] [address] Blood 12/31/2024 2:16 PM [employer] AND STEEL WORK SUPERVISOR 12/31/2024 2:24 PM [employer] AND STEEL WORK SUPERVISOR Lesley Clayton HI LAB BLOOD ORDERABLES Final Resu lt Performing Organization Address [facility]/ZIP Co de Phone Number YEVGENIY [phone] [facility] [address] * (ABNORMAL) Comprehensive metabolic panel (12/31/2024 2:16 PM [employer] AND STEEL WORK SUPERVISOR) Sodium 137 135 - 145 mmol/L Comment:Testing performed by : [address] [address] Potassium, pl 4.1 3.3 - 4.9 mmol/L [facility] Comment:Testing performed by : [address] [address] Chloride 103 97 - 110 mmol/L [facility] Comment:Testing performed by : [address], [place]., [address] CO2 24 22 - 32 mmol/L [facility] Comment:Testing performed by : [address] [address] Anion gap 10 2 - 15 mmol/L [facility] Comment:Testing performed by : [address], [place]., [address] BUN 11 6 - 25 mg/dL [facility] Comment:Testing performed by : [address], [place]., [address] Creatinine 0.57(L) 0.60 - 1.10 mg/dL [facility] Comment:Testing performed by : [address] [address] Glucose 89 70 - 199 mg/dL [facility] Comment: Interpretive Data Fasting glucose [...] last revised 2022. Testing performed by: [address] [address] Calcium 9.7 8.5 - 10.3 mg/dL [facility] Comment:Testing performed by : [address] [address] Bilirubin, total 0.2 0.1 - 1.2 mg/dL [facility]EVGEN[facility] TOM Comment:Testing performed by : [address] [address] Protein, pl 7.9 6.5 - 8.5 g/dL [facility] Comment:Testing performed by : [address] [address] Albumin 4.4 3.5 - 5.0 g/dL [facility] Comment:Testing performed by : [address] [address] Alk phos 89 40 - 130 Units/L [facility] Comment:Testing performed by : [address] [address] ALT 21 7 - 45 Units/L [facility] Comment:Testing performed by : [address] [address] AST 24 10 - 45 Units/L [facility] Comment:Testing performed by : [address] [address] Blood 12/31/2024 2:16 PM [employer] STEEL WORK SUPERVISOR 12/31/2024 2:24 PM [employer] AND STEEL WORK SUPERVISOR us Lesley DE LEON LAB BLOOD ORDERABLES Final Resu lt [facility]EVGENIY [address] [facility] Department [place] [address] from Last 3 Months Insurance [facility] Care Teams Safety Person Relationship Specialty Start Date End Date Tammi Menon LauraDOREEN [address] Pediatric Emerg. Dept. [place] [id number] PCP - General Family Medicine 12/31/24
--- OUTSIDE RECORDS SUMMARY | 2025-02-27 13:02 | XMS_ITS | Data Portability ---
Author Organization [facility] Address [address] [place] [address] Care Team Providers Care Drilling Superintendent Name Role Phone SEANCARLOS Primary Care Provider [...] US, obstetr ic, transva ginal 2024 025 [address], [address], [place], [address], 01/27/2025 22:04:56 US, obstetr ic, transva ginal [address], [address], [place], [address], 01/14/2025 20:59:59 Medication Orders prometh azine 25 mg tablet 2024 025 [facility], [address] [facility], [place], [address], 02/04/2025 10:40:13 Fiorice t 50 mg-300 mg-40 mg capsule 2024 025 [facility], [address] [facility], [place], [address], 02/05/2025 21:58:45 Patient TargetsNo targets recorded. Patient [...] Gynec ologi gonsalo Repor t Case: [id number] Autho jayshree angelica Provi mic: Latoya [...] as clini kentrell rosario nted. Not Available [facility] (Lab) [address], [place], [address], 02/01/2025 12:02:58 01/28/2001/27/2025 TRICH OMONA S VAGIN CATHI (RRNA ) trichomonas vaginalis ribosomal RNA (rrna) Negati ve negati ve Not Available [facility] (Lab) [address], [place], [address], 02/01/2025 12:02:58 01/28/20 25 01/27/2025 CT/GC (JOHN) , THINP REP VIAL chlamydia trachomatis, PCR Negati ve negati ve Not Available [facility] (Lab) [address], [place], [address], 02/01/2025 12:02:59 01/28/20 25 01/27/2025 CT/GC (JOHN) , THINP REP VIAL neisseria gonorrhoeae, PCR Negati ve negati ve Not Available [facility] (Lab) [address] [facility], [place], [address], 02/01/2025 12:02:59 02/20/20 25 02/19/2025 CBC W/DIF F WBC 11.0 10'3/ uL 3.5-10 .5 high Not Available [facility] (Lab) [address] [facility], [place], [address], 02/20/2025 13:00:55 02/20/20 25 02/19/2025 CBC W/DIF F RBC 4.38 10'6/ uL (based on docume nted legal sex) 3.80-5 .20 Not Available [facility] (Lab) [address] [facility], [place], [address], 02/20/2025 13:00:55 02/20/20 25 02/19/2025 CBC W/DIF F HGB 11.7 g/dL (based on docume nted legal sex) 11.6-1 5.4 Not Available [facility] (Lab) [address] [facility], [place], [address], 02/20/2025 13:00:55 02/20/20 25 02/19/2025 CBC W/DIF F HCT 36.4 % (based on docume nted legal sex) 34.0-4 5.0 Not Available [facility] (Lab) [address] [facility], [place], [address], 02/20/2025 13:00:55 02/20/20 25 02/19/2025 CBC W/DIF F MCV 83.1 fL 80.0-9 9.0 Not Available [facility] (Lab) [address] [place], [address], 02/20/2025 13:00:55 02/20/20 25 02/19/2025 CBC W/DIF F MCH 26.7 pg 27.0-3 4.0 low Not Available [facility] (Lab) [address] [facility], [place], [address], 02/20/2025 13:00:55 02/20/20 25 02/19/2025 CBC W/DIF F MCHC 32.1 g/dL 32.0-3 5.5 Not Available [facility] (Lab) [address], [place], [address], 02/20/2025 13:00:55 02/20/20 25 02/19/2025 CBC W/DIF F RDW 12.6 % 11.0-1 5.0 Not Available [facility] (Lab) [address] [facility], [place], [address], 02/20/2025 13:00:55 02/20/20 25 02/19/2025 CBC W/DIF F plt 350 10'3/ uL 150-40 0 Not Available [facility] (Lab) [address] [facility], [place], [address], 02/20/2025 13:00:55 02/20/20 25 02/19/2025 CBC W/DIF F MPV 10.2 fL 8.8-12 .1 Not Available [facility] (Lab) [address] [facility], [place], [address], 02/20/2025 13:00:55 02/20/20 25 02/19/2025 CBC W/DIF F neutrophils 72.9 % 34.0-7 3.0 Not Available [facility] (Lab) [address] [place], [address], 02/20/2025 13:00:55 02/20/20 25 02/19/2025 CBC W/DIF F lymphocytes 17.8 % 15.0-5 0.0 Not Available [facility] (Lab) [address] [facility], [place], [address], 02/20/2025 13:00:55 02/20/20 25 02/19/2025 CBC W/DIF F monocytes 7.5 % 1.0-15 .0 Not Available [facility] (Lab) [address] [facility], [place], [address], 02/20/2025 13:00:55 02/20/20 25 02/19/2025 CBC W/DIF F eosinophils 1.1 % 0.0-8. 0 Not Available [facility] (Lab) [address] [facility], [place], [address], 02/20/2025 13:00:55 02/20/20 25 02/19/2025 CBC W/DIF F basophils 0.4 % 0.0-2. 0 Not Available [facility] (Lab) [address] [facility], [place], [address], 02/20/2025 13:00:55 02/20/20 25 02/19/2025 CBC W/DIF F immature granulocytes 0.3 % no define d refere nce range Immat ure Granu locyt es (IG) repre sents autom ated enume ratio n of Metam yeloc ytes, Myelo cytes and Promy elocy oni when IG is < 5%. Blast s are not inclu ded in IG and repor greg separ ately if prese nt. Not Available [facility] (Lab) [address] [facility], [place], [address], 02/20/2025 13:00:55 02/20/20 25 02/19/2025 CBC W/DIF F absolute neutrophils 8.0 10'3/ uL 1.5-8. 0 Not Available [facility] (Lab) [address] [facility], [place], [address], 02/20/2025 13:00:55 02/20/20 25 02/19/2025 CBC W/DIF F absolute lymphocytes 2.0 10'3/ uL 1.0-4. 0 Not Available [facility] (Lab) [address] [facility], [place], [address], 02/20/2025 13:00:55 02/20/2002/19/2025 CBC W/DIF F absolute monocytes 0.8 10'3/ uL 0.2-1. 0 Not Available [facility] (Lab) [address] [place], [address], 02/20/2025 13:00:55 02/20/20 25 02/19/2025 CBC W/DIF F absolute eosinophils 0.1 10'3/ uL 0.0-0. 6 Not Available [facility] (Lab) [address] [facility], [place], [address], 02/20/2025 13:00:55 02/20/20 25 02/19/2025 CBC W/DIF F absolute basophils 0.0 10'3/ uL 0.0-0. 3 Not Available [facility] (Lab) [address] [facility], [place], [address], 02/20/2025 13:00:55 02/20/2002/19/2025 CBC W/DIF F absolute immature granulocytes 0.0 10'3/ uL 0.00-0 .10 Refer ence range s for nonbi nary/ inter sex or unspe cifie d gende r patie nts have not been estab lishe d. Pleas e refer to [facility] table for range s estab lishe d for cisge nder patie nts and evalu ate in the clini gonsalo silke xt of the indiv idual patie nt: https :[email or web address] wright book. nm.or g/gen derx Not Available [facility] (Lab) [address] [facility], [place], [address], 02/20/2025 13:00:55 02/20/20 25 02/19/2025 HEPAT ITIS B SURFA CE ANTIG EN hepatitis B surface antigen Non-re active non-re active This assay was perfo rmed using [employer] ratio n reage nts and test kits. Value s obtai forrest with other assay metho ds or kits canno t be used inter chung eably . Not Available [facility] (Lab) [address], [place], [address], 02/20/2025 13:00:55 02/20/20 25 02/19/2025 HIV 1/2 ANTIG EN/AN TIBOD Y, REFLE X CONFI RMATI ON HIV antigen/anti body Nonrea ctive nonrea ctive HIV-1 antig en and HIV-1 /HIV- 2 antib odies were not detec greg. No labor atory evide nce of HIV infec tion. Not Available [facility] (Lab) [address], [place], [address], 02/20/2025 13:00:56 02/20/20 25 02/19/2025 HEPAT ITIS C ANTIB CLARIBEL SCREE N, REFLE X TO CONFI RMATI ON hepatitis C antibody Non-re active non-re active Antib odies to HCV Not Detec greg, does not exclu de the possi bilit y of expos ure to HCV. Not Available [facility] (Lab) [address], [place], [address], 02/20/2025 13:00:56 02/20/20 25 02/19/2025 T4 FREE T4, free 0.92 NG/dL 0.60-1 .40 This assay is susce ptibl e to inter feren ce from high level s of bioti n which may false ly eleva te resul ts. Pleas e corre late with clini gonsalo findi ngs. Not Available [facility] (Lab) [address], [place], [address], 02/20/2025 13:00:56 02/20/20 25 02/19/2025 TSH, REFLE X FREE T4 TSH 0.03 uIU/m L 0.30-5 .33 low Not Available [facility] (Lab) [address], [place], [address], 02/20/2025 13:00:56 02/20/20 25 02/19/2025 RUBEL LA IGG ANTIB CLARIBEL, QUANT rubella antibodies, IgG Reacti ve reacti ve Not Available [facility] (Lab) [address] [facility], [place], [address], 02/20/2025 13:00:57 02/20/20 25 02/19/2025 RUBEL LA IGG ANTIB CLARIBEL, QUANT rubella antibodies, IgG quant 35.4 IU/mL >=10 Non-r eacti ve (Non- Immun e) <10 IU/mL React angel (Immu ne) > or = 10 IU/mL Not Available [facility] (Lab) [address] [facility], [place], [address], 02/20/2025 13:00:57 02/20/20 25 02/19/2025 TYPE/ RH/SC REEN ABO/Rh type B POS Not Available [facility] (Lab) [address] [facility], [place], [address], 02/20/2025 13:00:57 02/20/20 25 02/19/2025 TYPE/ RH/SC REEN antibody screen NEG Not Available [facility] (Lab) [address] [facility], [place], [address], 02/20/2025 13:00:57 02/20/20 25 02/19/2025 TYPE/ RH/SC REEN exp date 2024 23:59 Not Available [facility] (Lab) [address] [facility], [place], [address], 02/20/2025 13:00:57 02/20/20 25 02/19/2025 HEMOG LOBIN A1C hemoglobin A1C 5.1 % 4.0-5. 6 The Ameri can Diabe oni Assoc iatio n recom mends that a prima ry goal of [place] be a HBA1C of < 7% and that physi feliciano [place] cast[place] reeva luate the treat ment regim en in patie nts with HBA1C value s consi stent ly > 8%. <5.7% Inna l 5.7 - 6.4% Incre ased risk for diabe oni >=6.5 % Diagn ostic of diabe oni <7.0% Goal of thera py >8.0% Actio n sugge sted Not Available [facility] (Lab) [address] [facility], [place], [address], 02/20/2025 13:00:57 02/20/20 25 02/19/2025 RPR SCREE N, REFLE X TITER /CONF IRMAT ION RPR qualitative Nonrea ctive nonrea ctive Not Available [facility] (Lab) [address] [facility], [place], [address], 02/20/2025 13:00:58 01/15/20 25 01/14/2025 US, pelvi s No observ ation record ed. [email or web address] [address], [place], [address], 01/14/2025 22:26:54 01/15/20 25 01/14/2025 US, obste tric, trans vagin al No observ ation record ed. [email or web address] [place] [address], [place], [address], 01/14/2025 13:55:51 01/28/20 25 01/27/2025 US, obste tric, trans vagin al No observ ation record ed. [email or web address] [place] [address], [place], [address], 01/27/2025 18:32:06 01/28/20 25 01/27/2025 US, obste tric, trans vagin al No observ ation record ed. [email or web address] [address], [place], [address], 01/27/2025 22:14:08 02/20/20 25 02/19/2025 lab* No observ ation record ed. [address], [place], [address], 02/22/2025 23:13:52 02/27/2002/26/2025 imagi ng/di agnos tic resul t No observ ation record ed. [address], [place], [address], 02/26/2025 17:14:57 02/27/2002/26/2025 imagi ng/di agnos tic resul t No observ ation record ed. [address], [place], [address], 02/26/2025 17:14:57 Result Notes None recorded. Problems Name Problem SNOMED Code Status Onset Date Resolution Date Notes Provider Name and Address Organization Details Recorded Time Gestatio n period, 37 weeks 74284460 Completed 201907/05/2021 37 weeks gestatio n of pregnanc y;Record ed Elsewher e: No Locat ion: [facility] S ource: EHR Director External Communications yvrose: N Dennis ce ID: [email or web address] Gigi lable Time: 09:00:00 AM Karina ramos [facility] 10:15:[address] Concept Completed 201907/05/2021 Matern care for abnlt fetl hrt rate or rhym, 3rd tri, unsp;Rec orded Elsewher e: No Locat ion: [facility] S ource: EHR Director External Communications yvrose: Laura Collins ce ID: [email or web address] Gigi lable Time: 08:45:00 AM Karina ramos [facility] 10:15:29 Gestatio nal diabetes mellitus 53064446 Completed 201907/05/2021 Gestatio nal diabetes mellitus in pregnanc y, diet controll ed;Recor ded Elsewher e: No Locat ion: [facility] S ource: EHR Director External Communications yvrose: N Natalyati ce ID: 0001 Gigi lable Time: 11:45:00 AM Karina ramos, [facility] 1 10:15:25 Gestatio n period, 38 weeks 81505550 Completed 201907/05/2021 38 weeks gestatio n of pregnanc y;Record ed Elsewher e: No Locat ion: [facility] S ource: EHR Director External Communications yvrose: N Practi ce ID: [email or web address] Gigi lable Time: 11:30:00 AM Karina Burroughs null, [facility] 1 10:15:13 Normal pregnanc y in multigra jessy [id number] 4106 Completed 201907/05/2021 Encounte r for supervis ion of other normal pregnanc y, 3rd trimeste r;Record ed Elsewher e: No Locat ion: [facility] S ource: EHR Director External Communications yvrose: N Practi ce ID: [email or web address] Gigi lable Time: 10:45:00 AM Karina Burroughs null, [facility] 1 10:15:27 Amenorrh ea 27582341 Completed 202007/10/2021 Tammi Jones null, [facility] 1 13:08:35 Pregnanc y 89857315 Completed 202003/29/2022 Karina Burroughs null, [facility] 4 11:00:49 Hypereme sis 658222930 Completed phenerga n now prn Asia Choi hl null, [facility] 2 16:43:51 Anxiety in pregnanc y 89038545113 109 Completed will continue to monitor Asia Choi hl null, [facility] 2 16:43:51 Past pregnanc y history of gestatio nal diabetes mellitus 107729297 Completed Early 1 hr GTT @ 20wks 11/03 APPT Asia Choi hl null, [facility] 2 16:43:51 Spinal muscular atrophy 9036629 Completed Carrier - Not in contact with FOB. Asia [facility], [facility] 2 16:43:51 Pregnanc y 00728996 Completed 202304/22/2024 Karina ramos, [facility] 4 11:00:49 Anxiety 46203065 Completed prozac Karina Burroughs [facility], [facility] 4 11:00:46 Nausea 432569228 Completed d/c zofran pump 11/08 per pt request Karina Burroughs [facility], [facility] 4 11:00:46 Postpart um hemorrha ge 55309307 Completed 2017 with d&c Karina Burroughs [facility], [facility] 4 11:00:46 Headache 69760315 Active 2023 Karina Burroughs [facility], [facility] 5 16:19:28 Pregnanc y 53554897 Active 2023 Karina Burroughs [facility], [facility] 5 16:19:28 Notes:Order faxed to [facility] access 08/10 for PICC line, and home health already caring for pt. Vladimir RDZ at [phone] Problem Notes None recorded. Procedures Surgical History Date Name Laterality Status Provider Name and Address Organization Details Recorded Time 5 Date of Last Pap Smear completed Karina Burroughs [facility] 01/28/2025 11:19:42 4 Nexplanon Removal completed Shawn Bradley MD [address], [place], [address], [facility] 08/05/2024 15:09:58 4 Control Implant Insertion completed Anju Mcnamara CNM [address], [place], [address], [place] [facility] 05/08/2024 17:59:34 8 Dilation and Curettage completed Karina Burroughs [facility] 07/05/2021 10:17:50 Imaging Results Imaging Date Name Status LastModified by Organization Details LastModified Time 01/14/2025 US, pelvis completed [email or web address], [place], [address], 01/14/2025 22:26:54 01/14/2025 US, obstetric, transvaginal completed [email or web address] [place] [address], [place], [address], 01/14/2025 13:55:51 01/27/2025 US, obstetric, transvaginal completed [email or web address] [place] [address], [place], [address], 01/27/2025 18:32:06 01/27/2025 US, obstetric, transvaginal completed [email or web address] [address], [place], [address], 01/27/2025 22:14:08 02/19/2025 lab* completed [address], [address], 02/22/2025 23:13:52 02/26/2025 imaging/diagnost ic result active [address], [address], 02/26/2025 17:14:57 02/26/2025 imaging/diagnost ic result active [address], [address], 02/26/2025 17:14:57 Procedure Notes None recorded. Medical Equipment None Reported. Allergies Allergen ID Allergen Name Allergen Category Reaction Reaction Severity Criticality Documentation Date Start Date Code Code System Note Provider Name and Address Organization Details Recorded Time 05083 terbutali ne medicatio n anaphylax is Not available Not available 01/27/20252021 33546 RxNorm Karina Burroughs [facility] 16:19:27 Medications Name Sig Start Date [...] e: Yes Loca tion: [facility] odify By: prabhjot barrera DateTime : 01/14/20 [...] n (supplie d by office) insert lot [id number] Exp 01/2026 Not Available Not Available Not Available 28 mg iron-800 mcg tablet 07/05 completed Prescrib tej Deleon e: Yes Loca tion: [facility] M odvaleriy By: prabhjot barrera DateTime : 01/14/20 10:45:00 [...] Updated DateTime 01/14/2025 162.56 cm 27.3 kg/m2 70747.19 g 112 mm[Hg] 72 mm[Hg] Melyssa Santo [facility] 13:05:16 Date Recorded Body height Body mass index (BMI) Body weight Systolic blood pressure Diastolic blood pressure Provider Name and Address Organization Details Last Updated DateTime 01/27/2025 162.56 cm 27.8 kg/m2 59637.96 g 115 mm[Hg] 74 mm[Hg] Karina Burroughs [facility] 16:19:09 Date Recorded Body height Body mass index (BMI) Body weight Systolic blood pressure Diastolic blood pressure Provider Name and Address Organization Details Last Updated DateTime 02/04/2025 162.56 cm 28.2 kg/m2 45331.15 g 113 mm[Hg] 72 mm[Hg] Melyssa Santo [facility] 5 10:24:20 Social History Question Answer Notes LastModified by Organizat ion Details LastModified Time Tobacco Smoking Status Former Smoker Karina Burroughs [facility] 07/05/2021 09:06:21 What Is Your Level Of Alcohol Consumption? Occasional [email or web address] Information not available 07/05/2021 If You Are , What Was Your Level Of Alcohol Consumption Prior To ? None [email or web address] Information not available 07/05/2021 Are You Blind Or Do You Have Difficulty Seeing? No Information not available 07/05/2021 What Is Your Level Of Caffeine Consumption? Heavy [email or web address] Information not available 07/05/2021 In The 14 Days Before Symptom Onset, Have You Had Close Contact With A Laboratory-confir med COVID-19 While That Case Was Ill? No [email or web address] Information not available 07/05/2021 In The 14 Days Before Symptom Onset, Have You Had Close Contact With A Person Who Is Under Investigation For COVID-19 While That Person Was Ill? No Information not available 07/05/2021 Have You Been To An Area Known To Be High Risk For COVID-19? No [email or web address] Information not available 07/05/2021 Are You Deaf Or Do You Have Serious Difficulty Hearing? No [email or web address] Information not available 07/05/2021 What Type Of Diet Are You Following? REGULAR [email or web address] Information not available 07/05/2021 Which Illicit Or Recreational Drugs Have You Used? Marijuana [email or web address] Information not available 07/05/2021 Do You Or Have You Ever Used E-cigarettes Or Vape? Current User Of Electronic Cigarettes [email or web address] Information not available 07/05/2021 Have You Ever Been Counseled For Unhealthy Alcohol Use? No [email or web address] Information not available 07/05/2021 Do You Use Your Seat Belt Or Car Seat Routinely? Yes [email or web address] Information not available 07/05/2021 Do You Have Smoke And Carbon Monoxide Detectors In Your Home? Yes [email or web address] Information not available 07/05/2021 Do You Or Have You Ever Used Smokeless Tobacco? Never Used Smokeless Tobacco [email or web address] Information not available 07/05/2021 Do You Feel Stressed (tense, Restless, Nervous, Or Anxious, Or Unable To Sleep At Night)? [id number] [email or web address] Information not available 07/05/2021 Do You Use Any Illicit Or Recreational Drugs? Yes [email or web address] Information not available 07/05/2021 Do You Use Sunscreen Routinely? Yes [email or web address] Information not available 07/05/2021 Has Tobacco Cessation Counseling Been Provided? No [email or web address] Information not available 07/05/2021 Have You Used IV Drugs? No Information not available 07/05/2021 Do You Or Have You Ever Used Any Other Forms Of Tobacco Or Nicotine? Yes [email or web address] Information not available 07/05/2021 Sex: Unknown Functional Status Question Answer Note LastModified by Organizat ion Details LastModified Time Do you have difficulty walking or climbing stairs? No [email or web address] Information not available 12/06/2021 Are you able to walk? YESWOREST [email or web address] Information not available 07/05/2021 Are you able to care for yourself? Yes [email or web address] Information not available 12/06/2021 Do you have difficulty dressing or bathing? No Information not available 12/06/2021 What is your exercise level? Occasional [email or web address] Information not available 07/05/2021 Mental Status None recorded. Family History Relationship Description Onset Age of this Age Resolved Age Notes LastModified by Organization Details LastModified Time Father No current problems or disability [email or web address] Not available 05/2021 09:06:31 Mother No current problems or disability [email or web address] Not available 05/2021 09:06:31 Medical History Condition Response Allergies (Food, seasonal, environmental ) N Other N Drug/Latex Allergies/Reactions N Breast Cancer N Blood Transfusion N Lung Disease Y Dermatologic Disorders N Defects or Inherited Disease N Breast Problem N Gestational Diabetes Y Hematologic disorders N Anesthesia Complications N History of STI Y Deep Vein Thrombosis N Polycystic ovary syndrome N Anxiety Disorder Y Autoimmune disease N Arthritis N Polyps N Infertility N History of abnormal pap N Acid Reflux (GERD) N Cancer N Varicosities N Stroke N Neurologic/Epilepsy N Endometriosis N High Cholesterol N Headaches N Fibromyalgia N Kidney Disease N Heart Problems N Thyroid Problems N Kidney or Bladder Problems N GI Problems N Eating Disorder [...] SNOMED-CT Code Diagnosis ICD10 Code Diagnosis Note [id number] [facility] [address] [address] 07/05/2021 09:58:05 07/05/2021 11:16:35 Pityriasis versicolor 10856074 B36.0 also wash with selsum blue shampoo Vaginitis 66173265 N76.0 Nausea 419841783 R11.0 Contracept ion care management 325704456 Z30.9 67691 Betsey Joya [facility] [address] [address] 08/02/2021 10:30:44 08/04/2021 10:07:43 Severe hyperemesis gravidarum 018139151 O21.1 Pt has not held anything down for more than 24 hours. Sent to ER for hydration and evaluation . We have discussed dietary precaution s. Recommend very small frequent meals. Avoid greasy, spicy or trigger foods. I do believe she may benefit from home health for fluids and IV antiemetic s. [address]82 Anju Mcnamara CNM [place] [address],[place] [address] 08/08/2021 10:22:11 08/08/2021 13:42:05 Depressive disorder 00023139 F32.A in an emergency mercy info given and kettler reminder, if increased thoughts or plan to hospital for immediate care, pt agrees, continue counseling , will try lexapro once can keep down fluids, se reviewed Gynecologi c examination 22644721 Z01.419 Z11.3 Z11.8 Amenorrhea 18615921 N91. 2 plan NOB and first look Nausea and vomiting 1693 1999 R11.2 unable to leave urine, unable at this time to go to LD, encouraged to go to [place] for hydration, working on home health services, [address] Shawn Bradley MD [facility] [address],[place] [address] 08/08/2021 10:21:08 08/08/2021 10:53:33 Routine care 871857816 Z34.91 Z3A.08 [id number] Anju Mcnamara [facility] [address],[place] [address] 09/13/2021 14:51:52 09/14/2021 13:44:23 test positive 689961645 Z32.01 Routine an tenatal care 634937518 Z34.91 [id number] Shawn Bradley MD [facility] [address],[place] [address] 09/13/2021 15:35:32 09/13/2021 16:26:27 screening 190796772 Z36.82 [id number] Betsey Joya [facility] [address],[place] [address] 10/09/2021 12:26:15 10/09/2021 17:39:00 Urinary symptoms 423192211 R39.9 Fatigue 05569940 R53.83 Venereal d isease screening 597768321 Z11.3 [id number] Anju Mcnamara [facility] [address],[place] [address] 10/16/2021 11:57:23 10/16/2021 12:48:11 Routine care 830301041 Z34.91 [id number] Anju Mcnamara CN[facility] [address],[place] [address] 11/03/2021 11:32:21 11/03/2021 13:52:13 Routine care 549576920 Z34.91 [id number] Shawn Bradley MD [facility] [address],[place] [address] 11/03/2021 11:31:37 11/03/2021 12:34:34 screening for malformation 591605824 Z36.3 [id number] Anju Mcnamara CNM [facility] [address],[place] [address] 12/06/2021 14:46:58 12/06/2021 16:07:59 Routine care 967753138 Z34.91 Iron defic iency anemia 53305062 D50.9 Anxiety 02782308 F41.9 [id number] Shawn Bradley MD [facility] [address],[place] [address] 12/06/2021 14:46:10 12/06/2021 15:18:30 condition affecting obstetrical care of mother 394952446 O35.8XX0 Z3A.25 [id number] Anju Mcnamara CNM [facility] [address],[place] [address] 12/22/2021 11:04:34 12/22/2021 11:32:13 Routine care 498960105 Z34.91 [id number] Shawn Bradley MD [facility] [address],[place] [address] 01/03/2022 14:21:04 01/03/2022 15:48:26 Uterine size for dates discrepancy 377407687 O26.843 Z3A.29 [id number] Anju Mcnamara CNM [facility] [address],[place] [address] 01/03/2022 14:21:33 01/03/2022 15:13:41 Routine care 808397124 Z34.91 [id number] Anju Mcnamara [facility] [address],[place] [address] 01/17/2022 16:53:11 01/17/2022 17:24:14 Routine care 897632238 Z34.91 Persistent cough 8688032 02 R05.3 [id number] Betsey Joya [facility] [address],[place] [address] 02/06/2022 09:22:49 02/06/2022 09:55:25 Routine care 418661444 Z34.93 [id number] Shawn Bradley MD [facility] [address],[place] [address] 02/13/2022 14:43:16 02/13/2022 15:26:49 Poor growth affecting management 398323726 O36.5930 Z3A.35 [id number] Anju Mcnamara [facility] [address],[place] [address] 02/16/2022 15:13:14 02/16/2022 15:58:27 Routine care 208400530 Z34.91 [id number] Anju Mcnamara [facility] [address],[place] [address] 03/02/2022 15:02:03 03/02/2022 15:28:58 Routine care 485435885 Z34.91 [id number] BOLA Miller [facility] [address],[place] [address] 03/27/2022 10:37:37 03/27/2022 11:14:18 Mixed anxiety and depressive disorder 445780411 F41.8 Chest pain 68327040 R07. 9 She has a hx of [...] treatment for anxiety/de pression.Bianca peng has a laundry route driver that will take her to [place] [facility] ED (vitals are WNL, no acute distress noted).She has no thoughts of harming herself or others.She will call the office to schedule an appointmen t to be seen after ED evaluation . We discussed at that time can start therapy for depression /anxiety. RTC after cleared by ED Time spent with the patient was 20 minutes [id number] Shawn Bradley MD [facility] [address],[facility] [place] [address] 04/16/2022 15:11:58 04/16/2022 17:11:09 Mixed anxiety and depressive disorder 448805078 F41.8 this patient is a 22-year-ol d [...] ce. More than 50% was counseling . [id number] Shawn Bradley MD [facility] [address],[place] [address] 04/16/2022 16:43:28 04/16/2022 17:34:26 Abnormal uterine bleeding 0143989040 9100 N93.9 [id number] BOLA Miller [facility] [address],[facility] [place] [address] 06/19/2022 17:24:32 06/19/2022 18:03:44 Abnormal uterine bleeding 8747739173 9100 N93.9 We discussed likely spotting is [...] of plan of care. Pain in pelvis 23757645 R10.2 Contracept ion care management 486916622 Z30.9 Irregular periods 000570 07 N92.6 Venereal d isease screening 243682462 Z11.3 Anxiety 92834531 F41.9 [id number] Shawn Bradley MD [facility] [address],[facility] [place] [address] 10/02/2023 13:44:25 10/02/2023 14:07:54 screening 419040713 Z36.82 Z36.87 Z3A.11 [id number] Anju Mcnamara [facility] [address],[place] [address] 10/02/2023 13:46:45 10/02/2023 14:50:25 Amenorrhea 37154598 N91.2 plan NOB and first look NIPT and labs todaywants tubal ligation after delivery Gynecologi c examination 98920628 Z01.419 Z11.3 Z11.8 Nausea and vomiting 1693 2000 R11.2 [id number] [facility] [address],[place] [address] 11/01/2023 11:17:59 11/01/2023 13:01:44 Gestation period, 16 weeks 29115762 Z3A.16 Anxiety 38690979 F41.9 [id number] Shawn Bradley MD [facility] [address],[place] [address] 11/27/2023 14:04:37 11/27/2023 15:16:15 screening for malformation 277481184 Z36.3 Z3A.19 [id number] Anju Mcnamara [facility] [address],[place] [address] 11/27/2023 14:13:33 11/27/2023 15:31:00 Routine care 739401563 Z34.91 [id number] Anju Mcnamara [facility] [address],[place] [address] 12/25/2023 14:51:56 12/25/2023 15:52:45 Routine care 739338605 Z34.91 [id number] Anju Mcnamara [facility] [address],[place] [address] 02/14/2024 14:13:14 02/14/2024 16:07:12 Routine care 102696892 Z34.91 [id number] Anju Mcnamara [facility] [address],[place] [address] 03/27/2024 11:47:21 03/27/2024 12:30:07 Routine care 766088028 Z34.91 [id number] Anju Mcnamara [facility] [address],[place] [address] 05/08/2024 14:54:41 05/11/2024 09:00:41 Screening procedure 29047806 Z13.9 Implantati on of subcutaneous contraceptive 826306169 Z30.46 reviewed se risks and benefits, bandage until skin closes, pressure bandage x 24 hourswill schedule bilateral salpingect kateryna with dr. bradley care 98959226 8 Z39.2 continue multivitam in Sterilizat ion requested 431409076 Z30.2 [id number] Shawn Bradley MD [facility] [address],[place] [address] 08/05/2024 13:57:53 08/05/2024 15:11:54 Contraception care management 089714185 Z30.9 Nexplanon removed without complicati ons. She tolerated well. [id number] MD Shun Galarza [address],[place] [address] 01/14/2025 11:51:17 01/14/2025 12:53:24 Uncertain viability of 640059522 Z3A.01 [id number] MD Shun Galarza [address],[place] [address] 01/14/2025 11:51:38 01/15/2025 09:38:25 Pain in pelvis 96306062 R10.2 25-year-ol d female presents for ER [...] care. She will return in 2 weeks. [id number] MD Shun Galarza [address],[place] [address] 01/27/2025 14:42:15 01/27/2025 15:35:58 Abdominal pain in 967350451 O99.891 Z3A.01 [id number] MD Shun Galarza [address],[place] [address] 01/27/2025 14:55:24 01/27/2025 16:41:41 Amenorrhea 47406031 N91.2 Z32.01 this patient is a 25-year-ol [...] begin routine care at her next visit. [id number] Shawn Bradley MD [facility] [address],[place] [address] 02/04/2025 10:09:23 02/04/2025 10:48:21 Headache 33073412 R51.9 Nausea and vomiting 1693 2000 R11.2 [...] Roberts Member ID Guarantor Name 01/14/2025 1 [facility] (MEDICAID HMO) [id number] 0003 Yuni Brown [id number] Yuni Brown 01/14/2025 1 [facility] [place] (MEDICAID HMO) [id number] 0003 Yuni Brown [id number] Yuni Brown 01/27/2025 1 [facility] [place] ([place] [id number] 0003 Yuni Brown [id number] Yuni Brown 01/27/2025 1 [facility] [place] [id number] 0003 Yuni Brown [id number] Yuni Brown 02/04/2025 1 [facility] [place] [id number] 0003 Yuni Brown [id number] Yuni Brown Notes Date Note Type Note Provider Name and Address Organization Details Recorded Time 01/14/2025 text/html 25-year-old femsharlene lane presents for ER follow-up. She was [...] weeks. Shawn Bradley MD [address], [place], [address], [facility] 01/14/2025 21:27:11 01/27/2025 text/html [...] She was given recommendations on exercise, diet, cnov-qwc-kowmbax medications. We reviewed her obstetric history. We reviewed her medical history. We reviewed her social history. She will begin routine care at her next visit. Shawn Bradley MD [address], [place], [address], [facility] 01/27/2025 16:36:44 02/04/2025 text/html 25-year-old fema le with severe nausea, 8 weeks gestation, hyperemesis gravidarum. Patient states Zofran is not working anymore. She is unable to keep liquids down. We talked about various treatment options in detail. Spent over 20 minutes [id number] with the patient and on her care in total. We agreed to send to labor and delivery for IV fluids. Shawn Bradley MD [address], [place], [address], [facility] 02/04/2025 10:46:36 OBGyn Episode Ob Episode Information Episode Created Date Number of Fetuses Patient Bloodtype Patient rh Status Prepregnancy Weight lbs Domestic Partner Domestic Partner Phone Father Name Smoking Tobacco Packer Hand Status 03/14/20 20 1 CLOSED Fetus Data [...] Domestic Partner Domestic Partner Phone Father Name Smoking Tobacco Packer Hand Status 07/05/20 21 1 CLOSED Fetus Data First Name Last Name Admitted to NICU Weight (g) Sex Living Outcome Pediatric Complications Fetus ID Race Codes Race Delivery Type , Spontane ous [id number] Jun Calculation Initial Jun Date Initial Exam [...] Domestic Partner Domestic Partner Phone Father Name Smoking Tobacco Packer Hand Status 09/13/20 21 1 B Positive 103 diontre silva CLOSED Fetus Data First Name Last Name Admitted to NICU Weight (g) Sex Living Outcome Pediatric Complications Fetus ID Race Codes Race Delivery Type 3316.89 15 F true Full Term terminal meconium 27880 Vaginal Delivery Problems Problem Notes EIF in [place] noted03/05 PIH WNL, UC WNL Problem Name Start Date End Date Resolution Snomed Code Not e 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 Past history of gestational diabetes mellitus 062726453 Early 1 hr GTT @ 20wks 11/03 APPT Hyperemesis 916078277 phenerga n now prn Anxiety in 014529348 [address] will continue to monitor Jun Calculation Initial [...] Date Ultra Sound Latest Days Gestation 0 [id number] 09/14/2021 03/16/20 22 0 Pre- Flowsheet Flowsheet [...] Weight in lbs Pre/Post Dialysis Refused Weight 110.802103205792 BP Diastolic BP Location Tested BP Systolic [...] Weight in lbs Pre/Post Dialysis Refused Weight 119.818455905777 BP Diastolic BP Location Tested BP Systolic [...] Weight in lbs Pre/Post Dialysis Refused Weight 120.857228170522 BP Diastolic BP Location Tested BP Systolic [...] Weight in lbs Pre/Post Dialysis Refused Weight 124.721060676459 BP Diastolic BP Location Tested BP Systolic [...] Weight in lbs Pre/Post Dialysis Refused Weight 137.131774166388 BP Diastolic BP Location Tested BP Systolic [...] Weight in lbs Pre/Post Dialysis Refused Weight 145.1684140026 BP Diastolic BP Location Tested BP Systolic [...] Weight in lbs Pre/Post Dialysis Refused Weight 152.124878197638 BP Diastolic BP Location Tested BP Systolic [...] Weight in lbs Pre/Post Dialysis Refused Weight 150.309951990385 BP Diastolic BP Location Tested BP Systolic [...] Weight in lbs Pre/Post Dialysis Refused Weight 157.799831676939 BP Diastolic BP Location Tested BP Systolic [...] Weight in lbs Pre/Post Dialysis Refused Weight 158.354330779526 BP Diastolic BP Location Tested BP Systolic [...] Weight in lbs Pre/Post Dialysis Refused Weight 163.577601944688 BP Diastolic BP Location Tested BP Systolic [...] Weight in lbs Pre/Post Dialysis Refused Weight 134.960475630819 BP Diastolic BP Location Tested BP Systolic [...] At Estimated Date of Delivery false Thalassemia (Kittitian, Grenadian, Mediterranean, Or Background): MCV < 80 false Neural Tube Defect (Meningom yelocele, Spina Bifida, Or Anencephaly) false Congenital Heart Defect false Down Syndrome false Erick-Sachs (eg, Alevism, Cajun, Amharic-Cl[place]am) f alse Lizzette Disease false Sickle Cell Disease Or Trait () false Hemophilia Or Other Blood Disorders false Muscular Dystrophy false Cystic Fibrosis false Woodruff's Chorea false Intellectual Disability/Autism false If Yes, [...] 2 Induce d Regional-Ep idural 39 false Torres Mcnamaraah CNShana Spinal muscular atrophy Discharge Information Feeding Method Contraceptive Method Maternal HG B and HCT Levels Ob Episode Information Episode Created Date Number of Fetuses Patient Bloodtype Patient rh Status Prepregnancy Weight lbs Domestic Partner Domestic Partner Phone Father Name Smoking Tobacco Packer Hand Status 07/05/20 21 1 CLOSED Fetus Data First Name Last Name Admitted to NICU Weight (g) Sex Living Outcome Pediatric Complications Fetus ID Race Codes Race Delivery Type 0095.14 4 F Full Term 95181 Vaginal Delivery Jun Calculation Initial Jun Date [...] Domestic Partner Domestic Partner Phone Father Name Smoking Tobacco Packer Hand Status 11/01/19 24 1 B Positive 126 Lamoja Wand CLOSED Fetus Data First Name Last Name Admitted to NICU Weight (g) Sex Living Outcome Pediatric Complications Fetus ID Race Codes Race Delivery Type 3401.94 M true Full Term 37201 Vaginal Delivery Problems Problem Notes gallbladder attack/pain - re ferral to Gen Surg Dr. Boles sent 11/08- pt never went because pain stopped Problem Name Start Date End Date Resolution Snomed Code Not e Anxiety 43887997 prozac Nausea 091069841 d/c zofran pump 11/08 per pt request hemorrhage 54595068 hx of 2017 with d&c Jun Calculation [...] Weight in lbs Pre/Post Dialysis Refused Weight 130.562047278231 BP Diastolic BP Location Tested BP Systolic [...] Weight in lbs Pre/Post Dialysis Refused Weight 136.344526761337 BP Diastolic BP Location Tested BP Systolic [...] Weight in lbs Pre/Post Dialysis Refused Weight 144.218647389194 BP Diastolic BP Location Tested BP Systolic [...] Weight in lbs Pre/Post Dialysis Refused Weight 154.397997764961 BP Diastolic BP Location Tested BP Systolic [...] Weight in lbs Pre/Post Dialysis Refused Weight 157.430973545084 BP Diastolic BP Location Tested BP Systolic [...]
--- OUTSIDE RECORDS SUMMARY | 2025-02-27 13:02 | XMS_ITS | Referral Summary ---
Author Organization [facility] Address [address] [place] [address] Care Team Providers Care Commercial Stripper Name Role Phone Tammi Menon DOREEN Primary Care Provider Encounters Date Type Department Care Team Description 12/31/2024 2:47 PM SLIME PLANT OPERATOR - 12/31/2024 5:34 PM [facility] Emergency [facility] Emergency Department [facility] [place] [address] Shortness of breath (Primary Dx) [...] have care with Dr. Ortega Denson in [place], [place]. Assessment & Plan (07/04/2019 7:48 PM CDT): - no plans to initiate care in [facility] - gave Rx for doxylamine/pyridoxine for nausea - encouraged smoking cessation; recommended she d/w Dr. Addison Denson when she establishes care Abdominal pain in 07/04/2019 Overview (07/04/2019): 07/04/2019: presented to [facility], r/o for acute process. Transfer to [facility] for dating confirmation. Reports no BM [...] on file Legal Sex Female 11:55 PM SLIME PLANT OPERATOR Gender Identity Not on file Sexual Orientation Not on file Last Filed Vital Signs Vital Sign Reading Time Taken Comments Blood Pressure 101/69 12/31/2024 5:25 PM SLIME PLANT OPERATOR Pulse 77 12/31/2024 5:25 PM [employer]IME PLANT OPERATOR Temperature 37.1 C (98.7 F) 12/31/2024 2:09 PM SLIME PLANT OPERATOR Respiratory Rate 18 12/31/2024 5:25 PM SLIME PLANT OPERATOR Oxygen Saturation 100% 12/31/2024 5:25 PM SLIME PLANT OPERATOR Inhaled Oxygen Concentration - - Weight 72.7 kg (160 lb 4.4 oz) 12/31/2024 2:09 P M SLIME PLANT OPERATOR Height 165.1 cm (5' 5 ) 12/31/2024 2:09 PM SLIME PLANT OPERATOR Body Mass Index 26.67 12/31/2024 2:09 PM SLIME PLANT OPERATOR Plan of Treatment Not on file Procedures Procedure Name Priority Date/Time Associated Diagnosis Comments CT CHEST PE W CONTRAST ED 3:51 PM SLIME PLANT OPERATOR POCT HCG, URINE Routine 12/31/2024 3:19 PM SLIME PLANT OPERATOR XR CHEST PA LATERAL 2 VIEWS ED 12/31/2024 2:26 PM SLIME PLANT OPERATOR EGFR STAT 12/31/2024 2:16 PM SLIME PLANT OPERATOR DIFFERENTIAL AUTO STAT 12/31/2024 2:1 6 PM SLIME PLANT OPERATOR D-DIMER, QUANTITATIVE STAT 12/31/2024 2:16 PM SLIME PLANT OPERATOR COMPREHENSIVE METABOLIC PANEL STAT 12/31/2024 2:16 PM SLIME PLANT OPERATOR CBC WITH AUTO DIFFERENTIAL STAT 12/31/2024 2:16 PM SLIME PLANT OPERATOR INFLUENZA A/B, RSV, AND COVID-19 PCR STAT 12/31/2024 2:16 PM SLIME PLANT OPERATOR from Last 3 Months Results * CT Chest PE (CTA) W Contrast (12/31/2024 3:51 PM SLIME PLANT OPERATOR) Anatomical Region Laterality Modality Body N/A Computed Tomogra phy 12/31/2024 4:49 PM SLIME PLANT OPERATOR Narrative 12/31/2024 5:03 PM SLIME PLANT OPERATOR EXAM DESCRIPTION: CT CHEST PE (CTA) W [...] Quang Decker M.D. LC: GABRIEL Report ID: [id number] Reading Location: [id number] Procedure Note Yumiko Decker MD - 12/31/2024 [...] Quang Decker M.D. LC: GABRIEL Report ID: [id number] Reading Location: [place] [address] [facility] PROCEDURES Final Result * POCT hCG, urine (12/31/2024 3:19 PM SLIME PLANT OPERATOR) HCG, ur, POC Negative Negative Lot Number [id number] QC Backgroud Clear Acceptable QC Control Line Acceptable Urine 12/31/2024 3:19 PM SLIME PLANT OPERATOR [facility] POINT OF CARE TEST ORDERABLES F inal Result * XR Chest PA Lateral 2 Views (12/31/2024 2:26 PM SLIME PLANT OPERATOR) Anatomical Region Laterality Modality Body, Chest N/A Computed Radiogr aphy 12/31/2024 2:43 PM SLIME PLANT OPERATOR Narrative 12/31/2024 2:43 PM SLIME PLANT OPERATOR EXAM DESCRIPTION: XR CHEST PA LATERAL 2 [...] by Remberto Carney M.D. JR: Report ID: [id number] Reading Location: [id number] Procedure Note Remberto Carney MD - 12/31/2024 [...] by Remberto Carney M.D. JR: Report ID: [id number] Reading Location: [place] [address] us Lesley [facility] IMG XR PROCEDURES Final Result * Influenza A/B, RSV, and COVID-19 PCR Nasopharyngeal (12/31/2024 2:16 PM SLIME PLANT OPERATOR) Pathologist [facility] [place] COVID-19 RNA Negative Negative Comment:Testing performed by : [address], [address] Influenza A RNA Negative Negative [facility] Comment:Testing performed by : [address] [address] Influenza B RNA Negative Negative [facility] Comment:Testing performed by : [address], [address] RSV RNA Negative Negative [facility] Comment: Interpretive data: Testing performed by [facility]. This test is performed using the EXPO Xpert Xpress CoV-2/Flu/RSV plus assay. This is a multiplex, real-time reverse transcriptase PCR assay intended for the qualitative detection of nucleic acid from SARS-CoV-2, influenza A, influenza B, and respiratory syncytial virus. This assay has been cleared by the [place] Food and Drug administration. The performance characteristics have been verified by the [facility]. Results must be considered in the clinical context, and a negative result does not rule out infection. Interpretive Data last revised 2023 Testing performed by: [address] [address] Nasopharyngeal 12/31/2024 2: 16 PM SLIME PLANT OPERATOR 12/31/2024 2:24 PM SLIME PLANT OPERATOR Narrative YEVGENIY - 12/31/2024 3:09 PM SLIME PLANT OPERATOR Is the Patient experiencing symptoms consistent with COVID?->Yes us Lesley [facility] LAB MICROBIOLOGY - GENERAL ORDE RABLES Final Result Performing Organization Address City/State/[facility] de Phone Number YEVGENIY [facility] Department [place] [address] * eGFR (12/31/2024 2:16 PM SLIME PLANT OPERATOR) Pathologist [facility] eGFR >90 >=60 mL/min/1. 73 m2 Comment: [...] was last reviewed 2021. Testing performed by: [address] [address] Blood 12/31/2024 2:16 PM SLIME PLANT OPERATOR 12/31/2024 2:24 PM SLIME PLANT OPERATOR us Les[facility] LAB BLOOD ORDERABLES Final Resu lt Performing Organization Address [facility] Co de Phone Number YEVGENIY [facility] Department [place] [address] * (ABNORMAL) Differential, auto (12/31/2024 2:16 PM SLIME PLANT OPERATOR) Pathologist [facility] Neutrophil abs 6.0 1.5 - 6.5 K/cumm Comment:Testing performed by : [address] [address] Imm gran abs 0.0 0.0 - 0.1 K/cumm YEVGENIY Comment:Testing performed by : [address] [address] Lymphocyte abs 2.7 0.8 - 3.3 K/cumm [facility] Comment:Testing performed by : [address], [place]., [address] Monocyte abs 0.9(H) 0.2 - 0.8 K/cumm C[facility]ER Comment:Testing performed by : [address], [place]., [address] Eosinophil abs 0.1 0.0 - 0.5 K/cumm [facility] Comment:Testing performed by : [address], [place]., [address] Basophil abs 0.0 0.0 - 0.1 K/cumm [facility] Comment:Testing performed by : [address] [address] Neutrophil pct 61.6 % [facility] Comment: Interpretive Data Percent cell count reference ranges are not reported, since discordance with absolute values may lead to misinterpretation of CBC data. Current Interpretive Data was last revised on 2018. Testing performed by: [address] [address] Imm gran pct 0.3 % [facility] Comment: Interpretive Data Percent cell count reference ranges are not reported, since discordance with absolute values may lead to misinterpretation of CBC data. Current Interpretive Data was last revised on 2018. Testing performed by: [address] [address] Lymphocyte pct 27.3 % [facility] Comment: Interpretive Data Percent cell count reference ranges are not reported, since discordance with absolute values may lead to misinterpretation of CBC data. Current Interpretive Data was last revised on 2018. Testing performed by: [address] [address] Monocyte pct 9.4 % [facility] Comment: Interpretive Data Percent cell count reference ranges are not reported, since discordance with absolute values may lead to misinterpretation of CBC data. Current Interpretive Data was last revised on 2018. Testing performed by: [address] [address] Eosinophil pct 1.2 % [facility] Comment: Interpretive Data Percent cell count reference ranges are not reported, since discordance with absolute values may lead to misinterpretation of CBC data. Current Interpretive Data was last revised on 2018. Testing performed by: [address] [address] Basophil pct 0.2 % YEVGENIY TOM Comment: Interpretive Data Percent cell count reference ranges are not reported, since discordance with absolute values may lead to misinterpretation of CBC data. Current Interpretive Data was last revised on 2018. Testing performed by: [address] [address] Blood 12/31/2024 2:16 PM SLIME PLANT OPERATOR 12/31/2024 2:24 PM SLIME PLANT OPERATOR us [facility] LAB BLOOD ORDERABLES Final Resu lt YEVGENIY [facility] Department [place] [address] * (ABNORMAL) CBC with auto differential (12/31/2024 2:16 PM SLIME PLANT OPERATOR) WBC 9.8 3.8 - 9.9 K/cumm Comment:Testing performed by : [address] [address] Hgb 12.8 11.9 - 15.5 g/dL YEVGENIY TOM Comment:Testing performed by : [address] [address] Hct 40.0 35.6 - 45.5 % YEVGENIY TOM Comment:Testing performed by : [address] [address] Plt 288 150 - 400 K/cumm YEVGENIY TOM Comment:Testing performed by : [address] [address] MPV 9.7 9.1 - 12.3 fL YEVGENIY TOM Comment:Testing performed by : [address] [address] RBC 4.74 3.90 - 5.20 M/cumm YEVGENIY TOM Comment:Testing performed by : [address] [address] MCV 84.4 81.3 - 96.4 fL YEVGENIY Comment:Testing performed by : [address] [address] MCH 27.0(L) 27.1 - 33.3 pg YEVGENIY TOM Comment:Testing performed by : [address] [address] MCHC 32.0(L) 32.3 - 35.7 g/dL YEVGENIY TOM Comment:Testing performed by : [address] [address] RDW CV 12.2 11.1 - 14.9 % YEVGENIY Comment:Testing performed by : [address] [address] RDW SD 36.9 35.7 - 48.1 fL YEVGENIY Comment:Testing performed by : [address] [address] NRBC abs 0.00 0.00 - 0.01 K/cumm YEVGENIY Comment:Testing performed by : [address] [address] Blood 12/31/2024 2:16 PM SLIME PLANT OPERATOR 12/31/2024 2:24 PM SLIME PLANT OPERATOR us Les[facility] LAB BLOOD ORDERABLES Final Resu lt YEVGENIY [address] [facility] Department of Laboratories [place], [place] [id number] * (ABNORMAL) D-dimer, quantitative (12/31/2024 2:16 PM SLIME PLANT OPERATOR) D-Dimer 720(H) <=499 ng/mL FEU Comment: Interpretive [...] last revised on 2019. Testing performed by: [address] [address] Blood 12/31/2024 2:16 PM SLIME PLANT OPERATOR 12/31/2024 2:24 PM SLIME PLANT OPERATOR us [facility] LAB BLOOD ORDERABLES Final Resu lt YEVGENIY [address] Department [place] [address] * (ABNORMAL) Comprehensive metabolic panel (12/31/2024 2:16 PM SLIME PLANT OPERATOR) Sodium 137 135 - 145 mmol/L Comment:Testing performed by : [address] [address] Potassium, pl 4.1 3.3 - 4.9 mmol/L YEVGENIY Comment:Testing performed by : [address] [address] Chloride 103 97 - 110 mmol/L YEVGENIY Comment:Testing performed by : [address] [address] CO2 24 22 - 32 mmol/L YEVGENIY Comment:Testing performed by : [address] [address] Anion gap 10 2 - 15 mmol/L YEVGENIY Comment:Testing performed by : [address] [address] BUN 11 6 - 25 mg/dL YEVGENIY Comment:Testing performed by : [address] [address] Creatinine 0.57(L) 0.60 - 1.10 mg/dL YEVGENIY Comment:Testing performed by : [address] [address] Glucose 89 70 - 199 mg/dL YEVGENIY [...] was last revised 2022. Testing performed by: [address] [address] Calcium 9.7 8.5 - 10.3 mg/dL YEVGENIY Comment:Testing performed by : [address] [address] Bilirubin, total 0.2 0.1 - 1.2 mg/dL YEVGENIY Comment:Testing performed by : [address] [address] Protein, pl 7.9 6.5 - 8.5 g/dL YEVGENIY Comment:Testing performed by : [address] [address] Albumin 4.4 3.5 - 5.0 g/dL YEVGENIY Comment:Testing performed by : [address] [address] Alk phos 89 40 - 130 Units/L YEVGENIY Comment:Testing performed by : [address] [address] ALT 21 7 - 45 Units/L YEVGENIY Comment:Testing performed by : [address] [address] AST 24 10 - 45 Units/L YEV[facility]IY Comment:Testing performed by : [address] [address] Blood 12/31/2024 2:16 PM SLIME PLANT OPERATOR 12/31/2024 2:24 PM SLIME PLANT OPERATOR [facility] LAB BLOOD ORDERABLES Final Resu lt [facility] [address] [facility] [place] [address] from Last 3 Months Insurance [facility] Care Teams Commercial Stripper Relationship Specialty Start Date End Date Tammi Menon APRN [address] [place] [address] PCP - General Family Medicine 12/31/24
--- OUTSIDE RECORDS SUMMARY | 2025-02-27 13:02 | XMS_ITS | Clinical Summary ---
Author Organization [facility] Address [facility] [place] [address] Care Team Providers Care Sales And Service Associate Name Role Phone Steph Hightower MD Unavailable [...] 7 days. 14 capsule 5 02/01/20 25 cephALEXin (KEFLEX) 500 MG capsule Take 1 capsule (500 mg total) by mouth 2 (two) times daily for 10 days. 20 capsule 5 02/21/20 25 Active Problems Problem Noted Date Diagnosed Date ([facility]) 05/13/2024 Headache 05/13/2024 Estimated Date of Delivery Comme nts Yes 09/17/2025 Encounters Date Type Department Care Team Description 02/13/2025 8:45 PM CDT - 02/13/2025 10:19 PM CDT Emergency [facility] [address] [place] [address] Nacho Recinos MD Vomiting Discharge Disposition: Home or Self Care (Routine Discharge) 02/13/2025 Travel 02/10/2025 9:44 AM CDT - 02/10/2025 10:15 AM CDT Emergency [facility] [place] [address] Kaitlin Colon MD Vomiting Discharge Disposition: Left Against Medical Advice 02/10/2025 Travel 01/24/2025 12:23 PM CDT - 01/24/2025 2:54 PM CDT Emergency [facility] [address] [place] [address] [place] [address] Salty Potts MD Vomiting ; Palpitations Discharge Disposition: Home or Self Care (Routine Discharge) 01/24/2025 Travel 01/21/2025 Telephone [facility] [address] [place] [address] Steph Hightower MD Stress Test 01/21/2025 Scan [facility] [address] [place] [address] Scanned, Doc Pccl Stress Test (SCAN) 01/18/2025 8:06 AM CDT - 01/18/2025 11:59 PM CDT Hospital Encounter [facility] [address] [place] [address] Sami Mehta, DO Discharge Disposition: Home or Self Care (Routine Discharge) 01/17/2025 3:47 PM CDT - 01/17/2025 9:05 PM CDT Emergency [facility] [address] [place] [address] Sami Mehta, DO Leg Pain Discharge Disposition: Home or Self Care (Routine Discharge) 01/17/2025 Travel 01/14/2025 1:05 PM CDT - 01/14/2025 11:59 PM CDT Hospital Encounter [facility] [address] [place] [address] [place] [address] Shawn Mcginnis MD Discharge Disposition: Home or Self Care (Routine Discharge) 01/14/2025 Orders Only [facility] [address] [place] [address] [place] [address] Shawn Mcginnis MD 01/13/2025 2:01 PM CDT - 01/13/2025 6:59 PM CDT Emergency [facility] [address] [place] [address] [place] [address] Kaitlin Colon MD Complications Discharge Disposition: Home or Self Care (Routine Discharge) 01/13/2025 Travel 12/01/2024 7:33 PM CALCINER OPERATOR - 12/01/2024 9:34 PM CALCINER OPERATOR Emergency [facility] [address] [place] [address] [place] [address] Wayne Ledesma MD Body Aches; Cough Discharge [...] Recorded Patient Health Questionnaire-2 Score 0 05/13/2024 [facility] - Occupational Stress Questionnaire Answer [...] A & B STAT 12/01/2024 7:50 PM CALCINER OPERATOR CORONAVIRUS (COVID-19) ANTIGEN STAT 12/01/2024 7:50 PM CALCINER OPERATOR from Last 3 Months Results * (ABNORMAL) COMPREHENSIVE METABOLIC PANEL (02/13/2025 9:13 PM CDT) Only the most recent of3 resultswithin the time period is included. SODIUM S/P/B 137 136 - 145 MMOL/L 02/13/2025 9:44 PM CDT [facility] POTASSIUM S/P/B 3.8 3.5 - 5.1 MMOL/L 02/13/2025 9:44 PM CDT [facility] Comment:MILD HEMOLYSIS, RESU LT MAY BE AFFECTED. CHLORIDE S/P/B 101 98 - 107 MMOL/L 02/13/2025 9:44 PM CDT [facility] CO2 28.8 21.0 - 32.0 MMOL/L 02/13/2025 9:44 PM CDT [facility] GLUCOSE 89 70 - 99 MG/DL 02/13/2025 9:44 PM CDT [facility] Comment: FASTING GLUCOSE 100 TO 125 MG/DL IS CONSISTENT WITH IMPAIRED FASTING GLUCOSE. FASTING GLUCOSE >125 MG/DL IS CONSISTENT WITH DIABETES. RANDOM GLUCOSE >200 MG/DL WITH HYPERGLYCEMIC SYMPTOMS IS CONSISTENT WITH DIABETES. PER ADA GUIDELINES BUN 9 6 - 24 MG/DL 02/13/2025 9:44 PM [facility] CREATININE S/P/B 0.54(L) 0.55 - 1.02 MG/DL 02/13/2025 9:44 PM T [facility] CALCIUM S/P/B 9.2 8.4 - 10.5 MG/DL 02/13/2025 9:44 PM T [facility] BILIRUBIN TOTAL S/P/B 0.4 0.2 - 1.0 MG/DL 02/13/2025 9:44 PM [facility] Comment: THIS ASSAY IS NOT RECOMMENDED FOR PATIENTS UNDERGOING TREATMENT WITH ELTROMBOPAG DUE TO THE POTENTIAL FOR FALSELY ELEVATED RESULTS. ALKALINE PHOSPHATASE S/P/B 71 37 - 98 U/L 02/13/2025 9:44 PM [facility] AST 32 15 - 37 U/L 02/13/2025 9:44 PM [facility] Comment:MILD HEMOLYSIS, RESU LT MAY BE AFFECTED. ALT 23 14 - 59 U/L 02/13/2025 9:44 PM T [facility] TOTAL PROTEIN S/P/B 8.1 6.4 - 8.2 G/DL 02/13/2025 9:44 PM [facility] ALBUMIN S/P/B 3.6 3.4 - 5.0 G/DL 02/13/2025 9:44 PM [facility] ANION GAP 7.2 5.0 - 15.0 MMOL/L 02/13/2025 9:44 PM [facility] OSMOLALITY (CALC) 282 MOSM/KG 025 9:44 PM [facility] Comment:REFERENCE RANGE NOT ESTABLISHED GFR ESTIMATE >90 >89 ML/MIN/1. 73 M2 02/13/2025 9:44 PM [facility] GFR NOTES GFR REFERENCE S: 02/13/2025 9:44 PM CDT [facility] Comment: THE ESTIMATED GFR [...] us Nacho Recinos MD LABORATORY Final Result [facility] [address] [place] [address], * (ABNORMAL) CBC W/DIFF AUTOMATED (02/13/2025 9:13 PM CDT) Only the most recent of4 resultswithin the time period is included. WBC 13.49(H) 4.00 - 10.80 x10'3/uL 02/13/2025 9:21 PM CDT [facility] RBC 4.66 4.10 - 5.40 x10'6/uL 02/13/2025 9:21 PM CDT [facility] HGB 12.6 12.0 - 16.0 G/DL 02/13/2025 9:21 PM CDT [facility] HCT 38.5 36.0 - 47.0 % 02/13/2025 9:21 PM CDT [facility] MCV 82.6 78.0 - 100.0 FL 02/13/2025 9:21 PM CDT [facility] MCH 27.0 27.0 - 31.0 PG 02/13/2025 9:21 PM CDT [facility] MCHC 32.7(L) 33.0 - 36.0 G/DL 02/13/2025 9:21 PM CDT [facility] RDW 12.4 11.5 - 14.5 % 02/13/2025 9:21 PM CDT [facility] PLT 347 150 - 350 x10'3/uL 02/13/2025 9:21 PM CDT [facility] MPV 9.3 7.4 - 10.4 FL 02/13/2025 9:21 PM CDT [facility] CBC COMMENT NORMAL REFERENCE RANGE NOT ESTABLISHED FOR THE PROPORTIONAL LEUKOCYTE DIFFERENTIAL. 02/13/2025 9:21 PM CDT [facility] NEUTROPHILS % 71.1 % 02/13/2025 9:21 PM CDT [facility] LYMPHOCYTES % 21.2 % 02/13/2025 9:21 PM CDT [facility] MONOCYTES % 6.4 % 02/13/2025 9:21 PM CDT [facility] EOSINOPHILS % 0.7 % 02/13/2025 9:21 PM CDT [facility] BASOPHILS % 0.2 % 02/13/2025 9:21 PM CDT [facility] IMMATURE GRANS % 0.4 % 02/14/20 9:21 PM CDT [facility] NRBC % 0.0 % 02/13/2025 9:21 PM CDT [facility] ABS. NEUTROPHILS 9.60(H) 1.60 - 8.30 x10'3/uL 02/13/2025 9:21 PM CDT [facility] ABS. LYMPHOCYTES 2.86 0.80 - 4.70 x10'3/uL 02/13/2025 9:21 PM CDT [facility] ABS. MONOCYTES 0.86 0.00 - 1.50 x10'3/uL 02/13/2025 9:21 PM CDT [facility] ABS. EOSINOPHILS 0.09 0.00 - 0.40 x10'3/uL 02/13/2025 9:21 PM CDT [facility] ABS. BASOPHILS 0.03 0.00 - 0.20 x10'3/uL 02/13/2025 9:21 PM CDT [facility] ABS. IMMATURE GRANULOCYTES 0.05(H) 0.00 - 0.03 x10'3/uL 02/13/2025 9:21 PM CDT [facility] ABS. NUCLEATED RBC'S 0.00 0.00 - 0.01 x10'3/uL 02/13/2025 9:21 PM CDT [facility] 02/13/2025 9:13 PM CDT us Nacho Recinos MD LABORATORY Final Result [facility] [address] [place] [address], * (ABNORMAL) URINALYSIS (02/13/2025 9:06 PM CDT) Only the most recent of3 resultswithin the time period is included. COLOR (U) YELLOW 02/13/2025 9:41 PM CDT [facility] TRANSPARENCY CLEAR 02/13/2025 9:41 PM CDT [facility] SPECIFIC GRAVITY (U) 1.030(H) 1.000 - 1.025 02/13/2025 9:41 PM CDT [facility] Comment:EQUAL TO OR GREATER THAN U PH 5.5 5.0 - 8.0 02/13/2025 9:41 PM CDT [facility] LEUKOCYTES (U) NEGATIVE NEGATIVE 02/13/2025 9:41 PM CDT [facility] NITRITES NEGATIVE NEGATIVE 02/13/2025 9:41 PM CDT [facility] PROTEIN RANDOM (U) TRACE(A) NEGATIVE 02/13/2025 9:41 PM CDT [facility] GLUCOSE (U) NEGATIVE NEGATIVE 02/13/2025 9:41 PM CDT [facility] KETONES MG/DL (U) 3+(A) NEGATIVE 02/13/2025 9:41 PM CDT [facility] UROBILINOGEN 0.2 <1.0 EU/DL 02/13/2025 9:41 PM CDT [facility] BILIRUBIN (U) NEGATIVE NEGATIVE 02/13/2025 9:41 PM CDT [facility] BLOOD (U) NEGATIVE NEGATIVE 02/13/2025 9:41 PM CDT [facility] WBC/HPF 0-5 0 - 5 /HPF 02/13/2025 9:41 PM CDT [facility] RBC/HPF 0-5 0 - 5 /HPF 02/13/2025 9:41 PM CDT [facility] EPI/LPF MANY /LPF 02/13/2025 9:41 PM CDT [facility] MUCUS PRESENT 02/13/2025 9:41 PM CDT [facility] URINE SPECIMEN OBTAINED BY CLEAN CATCH PROCEDURE / Unknown 02/13/2025 9:06 PM CDT us Nacho Recinos MD URINE ORDERABLES Final Result [facility] [address] [place] [address], * CORONAVIRUS (COVID-19) ANTIGEN (02/10/2025 9:53 AM CDT) Only the most recent of2 resultswithin the time period is included. CORONAVIRUS ANTIGEN IA NEGATIVE NEGATIVE 02/10/2025 10:41 AM CDT [facility] Comment: NEGATIVE RESULTS DO [...] SPECIMEN TYPE NASAL 02/10/2025 9:56 AM CDT [facility] NASAL NASAL STRUCTURE / Unknown 02/10/2025 9:53 AM CDT Kaitlin Colon MD MICROBIOLOGY - GENERAL JOSE CORONADO Final Result [facility] [address] [place] [address], * INFLUENZA A & B (02/10/2025 9:53 AM CDT) Only the most recent of2 resultswithin the time period is included. SPECIMEN TYPE (INFLUENZA) NASOPHARYNGEAL SWAB 02/10/2025 9:56 AM CDT [facility] INFLUENZA A NEGATIVE NEGATIVE 02/10/2025 10:41 AM CDT [facility] INFLUENZA B NEGATIVE NEGATIVE 02/10/2025 10:41 AM CDT [facility] Comment: A NEGATIVE RESULT [...] JOSE CORONADO Final Result Performing Organization Address [facility] Co de Phone Number [facility] [address] [place] [address], [place] [phone] * (ABNORMAL) STREP A RAPID (02/10/2025 9:53 AM CDT) SPECIMEN SOURCE THROAT 02/10/2025 9:56 AM CDT [facility] RAPID STREP TEST POSITIVE(A) NEGATIVE 02/10/2025 10:38 AM CDT [facility] Comment: CALLED TO MATHEW DUFFY 1035 02/10/25 AFW READ BACK AND VERIFIED STRUCTURE OF ANTERIOR PORTION OF NECK / Unknown 02/10/2025 9:53 AM CDT us Kaitlin Colon MD MICROBIOLOGY - GENERAL ORDE RABLES Final Result [facility] [address] [place] [address], * XR CHEST PORTABLE (01/24/2025 1:48 PM CDT) Anatomical Region Laterality Modality Chest Radiographic Jazmin ging 01/24/2025 1:50 PM CDT Impressions 01/24/2025 1:51 PM CDT IMPRESSION: No significant change. No acute disease. Referred By: Interpreted By: Paulino Mitchell MD, 01/24/2025 1:50 PM Narrative 01/24/2025 1:51 PM CDT [place] [address] [facility] [place] [address] Examination: Portable chest. Exam time: 1342 hours. Clinical history: Left-sided chest pain. Palpitations. Comparison: 05/18/2023. Technique: AP upright view. Findings: The cardiomediastinal silhouette is stable. The heart remains within normal limits for size. Pulmonary vascularity is within normal limits. The lungs and pleural spaces remain free of any active process. The visualized bony thorax is unremarkable. Procedure Note Paulino Mitchell MD - 01/24/2025 [place] [address] [facility] [place] [address] Examination: Portable chest. Exam time: 1342 hours. [...] HCG TEST POSITIVE 01/24/2025 1:30 PM CDT [facility] SPECIFIC GRAVITY >1.030 01/24/2025 1:30 PM CDT [facility] URINE SPECIMEN FROM URETHRA / Unknown 01/24/2025 1:20 PM CDT us Salty Potts MD URINE ORDERABLES Final Resu lt Performing Organization Address [facility] Co de Phone Number [facility] [address] [place] [address], * TROPONIN, QUANT (01/24/2025 1:06 PM CDT) Only the most recent of3 resultswithin the time period is included. TROPONIN I HIGH SENSITIVITY 4 0 - 51 ng/L 01/24/2025 1:34 PM CDT [facility] 01/24/2025 1:06 PM CDT us Salty Potts MD LABORATORY Final Resul t Performing Organization Address [facility] Co de Phone Number [facility] [address] [place] [address], [place] [phone] * LIPASE (01/24/2025 1:06 PM CDT) LIPASE 25 16 - 77 UNITS/L 01/24/2025 1:34 PM CDT [facility] 01/24/2025 1:06 PM CDT us Salty Potts MD LABORATORY Final Resul t Performing Organization Address City/[facility]/ZIP Co de Phone Number [facility] [address] [place] [address], [place] [phone] * ECG 12 lead (01/24/2025 12:48 PM CDT) Only the most recent of2 resultswithin the time period is included. 01/24/2025 12:4 8 PM CDT Narrative [facility] [place] [facility] - 01/24/2025 1:[address]T [address] [place] [address] Test Date: 2025-01-24 Pat Name: [facility]O [facility] Department: 3 Room: EXAM 404 Gender: Female Chick Sexer: : 2000 Requested By: SALTY POTTS Order Number: [id number] Reading : Logan Wong Measurements Intervals Garvin Rate: 79 P: 71 MS: 147 QRS: 52 QRSD: 80 T: 45 QT: 337 QTc: 388 Interpretive Statements SINUS RHYTHM Procedure Note Logan Wong MD - 01/24/[address] [place] [address] Test Date: 2025-01-24 Pat Name: LIBRADO MEJIA Department: 3 Room: EXAM 404 Gender: Female Chick Sexer: : 2000 Requested By: SALTY POTTS Order Number: [id number] Fifi QUIGLEY: Logan Wong Measurements Intervals Garvin Rate: 79 P: 71 MS: 147 QRS: 52 QRSD: 80 T: 45 QT: 337 QTc: 388 Interpretive Statements SINUS RHYTHM us Salty Potts MD ECG ORDERABLES Final Resul t Performing Organization Address City/[facility]/ZIP Co de Phone Number [facility] * STRESS TEST (01/21/2025) us Doc Pccl Scanned SCANNING Final Result Performing Organization Address [facility]/ZIP Co de Phone Number [facility] * USV AKOSUA DUPLEX LOW EXT ADAM (01/18/2025 8:57 AM CDT) Anatomical Region Laterality Modality Extremity Ultrasound 01/18/2025 9:23 AM CDT Impressions 01/18/2025 9:24 AM CDT IMPRESSION: No evidence of deep venous thrombosis. Ordered By: SAMI MEHTA Interpreted By: Paulino Mitchell MD, 01/18/2025 9:23 AM Narrative 01/18/2025 9:24 AM CDT [address] [place] [facility] Examination: Bilateral lower extremity venous color Doppler [...] Procedure Note Paulino Mitchell MD - 01/18/[address] [place] [address] Examination: Bilateral lower extremity venous color Doppler [...] 7:32 PM Narrative 01/17/2025 7:34 PM [address]T [address] [place] [address] CTA CHEST WITH CONTRAST PULMONARY EMBOLISM PROTOCOL [...] Procedure Note German Chang MD - 01/17/[address] [place] [address] CTA CHEST WITH CONTRAST PULMONARY EMBOLISM PROTOCOL [...] - 500 ng{FEU}/mL 01/17/2025 6:10 PM CDT [facility] Comment: CALLED TO MATHEW [...] false negative findings. 01/17/2025 5:50 PM CDT us Sami Mehta DO LABORATORY Final Result Performing Organization Address [facility] Co de Phone Number [facility] [address] [place] [address], * (ABNORMAL) HCG QUANT (SERUM)-CHORIONIC GONADOTROPIN (01/14/2025 1:15 PM CDT) Only the most recent of2 resultswithin the time period is included. HCG QUANTITATIVE 5,590(H) 0.0 - 6.0 MIU/ML 01/14/2025 2:16 PM CDT [facility] Comment: WEEKS OF REFERENCE [...] LABORATORY Final Resu lt Performing Organization Address [facility] Co de Phone Number [facility] [address] [place] [address], [place] [phone] * US OB TRANSVAG (01/13/2025 6:37 PM [...] 5:28 PM Narrative 01/13/2025 5:39 PM [address]T [address] [place] [address] EXAMINATION: US OB TRANSVAG HISTORY: Abdominal pain, [...] Procedure Note Taiwo Haddad MD - 01/13/[address] [place] [address] EXAMINATION: US OB TRANSVAG HISTORY: Abdominal pain, [...] interstitialectopic gestation. Recommend close clinical follow-up and csvqi-mpvgwsvteb-qi ultrasound as discussed above. 2. Estimated gestational age by mean sac diameter is 5 weeks, 2 days. 3. No evidence of ovarian torsion. 4. Trace free pelvic fluid. Referred By: Interpreted By: Taiwo Haddad MD, 01/13/2025 5:28 PM us Kaitlin Colon MD ULTRASOUND Final Resul t * TYPE AND SCREEN (01/13/2025 4:02 PM CDT) ABO/RH B POSITIVE 01/13/2025 4:56 PM CDT [facility] ANTIBODY SCREEN NEGATIVE 01/13/2025 4:56 PM CDT [facility] SAMPLE EXPIRATION 01/16/2025,2 359 01/13/2025 4:56 PM CDT [facility] 01/13/2025 4:02 PM CDT Kaitlin Colon MD BLOOD BANK TEST ORDERABLES Final Result [address] [address], * CULTURE URINE (01/13/2025 3:43 PM CDT) Pathologist [facility] SPEC DESCRIPTION URINE CLEAN CATCH 01/13/2025 3:49 PM CDT [facility] SPECIAL REQUESTS NO SPECIAL REQUEST 01/13/2025 3:49 PM CDT [facility] CULTURE RESULT NO GROWTH (< OR = 1,000 CFU/ML) 01/15/2025 10:12 AM CDT [facility] URINE SPECIMEN OBTAINED BY CLEAN CATCH PROCEDURE / Unknown 01/13/2025 3:43 PM CDT 01/13/2025 3:51 PM CDT Kaitlin Colon MD MICROBIOLOGY - GENERAL ORDE RABLES Final Result [facility] [address] [place] [address], [place] [phone] [facility] [address] [place] [address], * (ABNORMAL) BASIC METABOLIC PANEL (01/13/2025 3:23 PM CDT) SODIUM S/P/B 136 136 - 145 MMOL/L 01/13/2025 4:22 PM [facility] POTASSIUM S/P/B 3.6 3.5 - 5.1 MMOL/L 01/13/2025 4:22 PM [facility] CHLORIDE S/P/B 101 98 - 107 MMOL/L 01/13/2025 4:22 PM [facility] CO2 27.7 21.0 - 32.0 MMOL/L 01/13/2025 4:22 PM [facility] GLUCOSE 106(H) 70 - 99 MG/DL 01/13/2025 4:22 PM [facility] Comment: FASTING GLUCOSE 100 TO 125 MG/DL IS CONSISTENT WITH IMPAIRED FASTING GLUCOSE. FASTING GLUCOSE >125 MG/DL IS CONSISTENT WITH DIABETES. RANDOM GLUCOSE >200 MG/DL WITH HYPERGLYCEMIC SYMPTOMS IS CONSISTENT WITH DIABETES. PER ADA GUIDELINES BUN 11 6 - 24 MG/DL 01/13/2025 4:22 PM [facility] CREATININE S/P/B 0.65 0.55 - 1.02 MG/DL 01/13/2025 4:22 PM [facility] CALCIUM S/P/B 9.0 8.4 - 10.5 MG/DL 01/13/2025 4:22 PM [facility] ANION GAP 7.3 5.0 - 15.0 MMOL/L 01/13/2025 4:22 PM [facility] OSMOLALITY (CALC) 282 MOSM/KG 025 4:22 PM [facility] Comment:REFERENCE RANGE NOT ESTABLISHED GFR ESTIMATE >90 >89 ML/MIN/1. 73 M2 01/13/2025 4:22 PM [facility] GFR NOTES GFR REFERENCE S: 01/13/2025 4:22 PM [facility] Comment: THE ESTIMATED GFR IS [...] Kaitlin Colon MD LABORATORY Final Resul t [facility] [address] [place] [address], from Last 3 Months Insurance FLOOD Care Teams Sales And Service Associate Relationship Specialty Start Date End Date Tanner Paige MD [address] [place] [address] PCP - General FAMILY PRACTICE 07/01/24 Steph Hightower MD [address] [place] [address] Consulting Physician CARDIOVASCULAR DISEASE 11/07/22 Janell Celaya APNP [address] [place] [phone] NURSE PRACTITIONER 12/01/24
--- NOTE | 2025-03-01 16:36 | PM.OBTRLD ---
OB - Triage/Final Diagnosis Visit Information Date of evaluation: 02/26/25 Reason for evaluation: other (nausea) Comments/Additional reasons for admission: I have assessed the risk for this patient, Yuni Mejia, and determined that she would benefit from observation care. Evaluation Laboratory results: Laboratory Tests 02/26/25 02/26/25 12:22 12:23 WBC 10.8 H RBC 4.08 L Hgb 11.2 L Hct 34.3 L MCV 84.1 MCH 27.5 MCHC 32.7 RDW 12.5 Plt Count 310 MPV 9.2 Sodium 135 L Potassium 3.7 Chloride 103 Carbon Dioxide 23 Anion Gap 9 BUN 12 Creatinine 0.42 L Estim Creat Clear Calc Not Reportable Estimated GFR > 60 Glucose 127 H Calcium 9.2 Total Bilirubin 0.5 AST 32 ALT 18 Alkaline Phosphatase 51 Total Protein 8.0 Albumin 4.1 Urine Color Dark yellow Urine Appearance Cloudy H Urine pH 6.0 Ur Specific [place] 1.037 H Urine Protein 1+ H Urine Glucose (UA) Negative Urine Ketones 3+ H Ur Blood (Man) Negative Urine Nitrate Negative Urine Bilirubin Negative Urine Urobilinogen 0.2 Ur Leukocyte Esterase Negative Add Ur Microanalysis Reviewed Urine RBC 11-20 H Urine WBC 21-50 H Ur Squamous Epith Cells Many H Urine Bacteria 4+ H Urine Casts 11-20 Hyaline Casts Present Urine Mucus Present
== END 2025-02-26 15:50 | disposition home or self-care (01) ==
PROVIDERS: Admitting Provider Obstetrics & Gynecology; Visit Provider Obstetrics & Gynecology
DX: O21.0 Mild hyperemesis gravidarum (principal); Z3A.11 11 weeks gestation of pregnancy
CPT/HCPCS: 36415; 76815; 80053; 81001; 85027; 96361; 96365; 96375; G0378; G0379; J0696; J2405; J7030; J7121

== ENCOUNTER 2025-03-03 21:11 | Observation (INO) | payer OTHER, SELFPAY ==
[2025-03-03] VITALS (33 sets, daily range): BP systolic 106–118; BP diastolic 61–72; PULSE 69–102; RESP 18; TEMP 36.5; O2SAT 87–100; BMI 26.3
--- NOTE | 2025-03-03 20:30 | PC.NURSE ---
Pt arrives to unit with nausea and vomiting started at 2014.
--- OUTSIDE RECORDS SUMMARY | 2025-03-03 20:35 | XMS_ITS | Clinical Summary ---
Author Organization [facility] Address [address] [place] [id number] Care Team Providers Care Fur Matcher Name Role Phone Steph Hightower MD Unavailable [...] hours as needed for Nausea. 20 tablet Active cephALEXin (KEFLEX) 500 MG capsule Take 1 capsule (500 mg total) by mouth 2 (two) times daily for 10 days. 20 capsule 5 02/21/20 25 Active Problems Problem Noted Date Diagnosed Date ([facility]) 05/13/2024 Headache 05/13/2024 Estimated Date of Delivery Comme nts Yes 09/17/2025 Encounters Date Type Department Care Team Description 02/28/2025 5:59 PM CDT - 02/28/2025 7:58 PM CDT [facility] [address] [place] [address] [place] [address] Fantasma Pedroza, DO Vomiting Discharge Disposition: Home or Self Care (Routine Discharge) 02/28/2025 Travel 02/13/2025 8:45 PM CDT - 02/13/2025 10:19 PM CDT [facility] [address] [place] [address] [place] [address] Nacho Recinos MD Vomiting Discharge Disposition: Home or Self Care (Routine Discharge) 02/13/2025 Travel 02/10/2025 9:44 AM CDT - 02/10/2025 10:15 AM CDT [facility] [address] [place] [address] [place] [address] Kaitlin Colon MD Vomiting Discharge Disposition: Left Against Medical Advice 02/10/2025 Travel 01/24/2025 12:23 PM CDT - 01/24/2025 2:54 PM CDT [facility] [address] [place] [address] [place] [address] Salty Frost MD Vomiting ; Palpitations Discharge Disposition: Home or Self Care (Routine Discharge) 01/24/2025 Travel 01/21/2025 Telephone [facility] [address] [place] [address] Steph Hightower MD Stress Test 01/21/2025 [facility] [address] [place] [address] Scanned, Doc Pccl Stress Test (SCAN) 01/18/2025 8:06 AM CDT - 01/18/2025 11:59 PM CDT Hospital Encounter [facility] [address] [place] [address] [place] [address] Sami Mehta DO Discharge Disposition: Home or Self Care (Routine Discharge) 01/17/2025 3:47 PM CDT - 01/17/2025 9:05 PM CDT [facility] [address] [place] [address] [place] [address] Sami Mehta DO Leg Pain Discharge Disposition: Home or Self Care (Routine Discharge) 01/17/2025 Travel 01/14/2025 1:05 PM CDT - 01/14/2025 11:59 PM CDT Hospital Encounter [facility] [place] [address] Shawn Mcginnis MD Discharge Disposition: Home or Self Care (Routine Discharge) 01/14/2025 Orders Only [address] [place] [address] Shawn Mcginnis MD 01/13/2025 2:01 PM CDT - 01/13/2025 6:59 PM CDT [facility] [address] [place] [address] [place] [address] Kaitlin Colon MD Complications Discharge Disposition: Home or Self Care (Routine Discharge) 01/13/2025 Travel from Last 3 Months Family History [...] Recorded Patient Health Questionnaire-2 Score 0 05/13/2024 [facility] - Occupational Stress [...] Sign Reading Time Taken Comments Blood Pressure 104/67 02/28/2025 7:30 PM CDT Pulse 77 02/28/2025 6:03 PM CDT Temperature 36.3 C (97.4 F) 02/28/2025 6:03 PM CDT Respiratory Rate 16 02/28/2025 6:03 PM CDT Oxygen Saturation 100% 02/28/2025 7:30 PM CDT Inhaled Oxygen Concentration - - Weight 72.2 kg (159 lb 4 oz) 02/28/2025 6:03 PM CDT Height 165.1 cm (5' 5) 02/28/2025 6:03 PM CDT Body Mass Index 26.5 02/28/2025 6:03 PM CDT Plan of Treatment Health Maintenance Due Date Last Done Comments Annual Physical 2002 HPV Vaccines (2 - 3-dose series) 02/02/2017 [...] history exists Meningococcal Vaccine Completed 01/05/2017, 012 Hepatitis C Completed 02/19/2025, 02/19/2025 Meningococcal B Vaccine Aged Out No l [...] Procedure Name Priority Date/Time Associated Diagnosis Comments HCG QUANT (SERUM)-CHORIONIC GONADOTROPIN STAT 02/28/2025 6:33 PM CDT AMYLASE STAT 02/28/2025 6:33 PM CDT LIPASE STAT 02/28/2025 6:33 PM CDT COMPREHENSIVE METABOLIC PANEL STAT 02/28/2025 6:33 PM CDT CBC W/DIFF AUTOMATED STAT 02/28/2025 6:33 PM CDT HC URINALYSIS AUTO W/MICRO STAT 02/28/2025 6:12 PM CDT COMPREHENSIVE METABOLIC PANEL STAT 02/13/2025 9:13 PM [...] CDT Amenorrhea Encounter for test, result positive ([facility]) US OB TRANSVAG STAT 01/13/2025 6:37 PM CDT TYPE & SCREEN STAT 01/13/2025 4:02 PM CDT URINE BACTERIA CULTURE STAT 3:43 PM CDT HC URINALYSIS AUTO W/MICRO STAT 01/13/2025 3:43 PM CDT BASIC METABOLIC PANEL STAT 01/13/2025 3:23 PM CDT HCG QUANT (SERUM)-CHORIONIC GONADOTROPIN STAT 01/13/2025 3:23 PM CDT CBC W/DIFF AUTOMATED STAT 01/13/2025 3:23 PM CDT from Last 3 Months Results * (ABNORMAL) COMPREHENSIVE METABOLIC PANEL (02/28/2025 6:33 PM CDT) Only the most recent of4 resultswithin the time period is included. SODIUM S/P/B 135(L) 136 - 145 MMOL/L 02/28/2025 7:30 PM CDT [facility] POTASSIUM S/P/B 3.3(L) 3.5 - 5.1 MMOL/L 02/28/2025 7:30 PM CDT [facility] CHLORIDE S/P/B 101 98 - 107 MMOL/L 02/28/2025 7:30 PM CDT [facility] CO2 28.8 21.0 - 32.0 MMOL/L 02/28/2025 7:30 PM CDT [facility] GLUCOSE 86 70 - 99 MG/DL 02/28/2025 7:30 PM T [facility] Comment: FASTING GLUCOSE 100 TO 125 MG/DL IS CONSISTENT WITH IMPAIRED FASTING GLUCOSE. FASTING GLUCOSE >125 MG/DL IS CONSISTENT WITH DIABETES. RANDOM GLUCOSE >200 MG/DL WITH HYPERGLYCEMIC SYMPTOMS IS CONSISTENT WITH DIABETES. PER ADA GUIDELINES BUN 11 6 - 24 MG/DL 02/28/2025 7:30 PM CDT [facility] CREATININE S/P/B 0.62 0.55 - 1.02 MG/DL 02/28/2025 7:30 PM CDT [facility] CALCIUM S/P/B 9.5 8.4 - 10.5 MG/DL 02/28/2025 7:30 PM CDT [facility] BILIRUBIN TOTAL S/P/B 0.2 0.2 - 1.0 MG/DL 02/28/2025 7:30 PM T [facility] Comment: THIS ASSAY IS NOT RECOMMENDED FOR PATIENTS UNDERGOING TREATMENT WITH ELTROMBOPAG DUE TO THE POTENTIAL FOR FALSELY ELEVATED RESULTS. ALKALINE PHOSPHATASE S/P/B 68 37 - 98 U/L 02/28/2025 7:30 PM CDT [facility] AST 16 15 - 37 U/L 02/28/2025 7:30 PM CDT [facility] ALT 21 14 - 59 U/L 02/28/2025 7:30 PM CDT [facility] TOTAL PROTEIN S/P/B 7.7 6.4 - 8.2 G/DL 02/28/2025 7:30 PM CDT [facility] ALBUMIN S/P/B 3.3(L) 3.4 - 5.0 G/DL 02/28/2025 7:30 PM CDT [facility] ANION GAP 5.2 5.0 - 15.0 MMOL/L 02/28/2025 7:30 PM CDT [facility] OSMOLALITY (CALC) 279 MOSM/KG 025 7:30 PM CDT [facility] Comment:REFERENCE RANGE NOT ESTABLISHED GFR ESTIMATE >90 >89 ML/MIN/1. 73 M2 02/28/2025 7:30 PM CDT [facility] GFR NOTES GFR REFERENCE S: 02/28/2025 7:30 PM CDT [facility] Comment: THE ESTIMATED GFR IS [...] ml/min/1.73 m2 G5,KIDNEY FAILURE: <15 ml/min/1.73 m2 02/28/2025 6:33 PM CDT us Fantasma Pedroza DO LABORATORY Final Result [facility] [address] [place] [address], * (ABNORMAL) HCG QUANT (SERUM)-CHORIONIC GONADOTROPIN (02/28/2025 6:33 PM CDT) Only the most recent of3 resultswithin the time period is included. HCG QUANTITATIVE 146,741(H ) 0.0 - 6.0 MIU/ML 02/28/2025 7:30 PM CDT [facility] Comment: WEEKS OF REFERENCE RANGES [...] TESTING AT 48 HOURS MAY BE INDICATED. 02/28/2025 6:33 PM CDT Fantasma Pedroza DO LABORATORY Final Result [facility] [address] [place] [address], * (ABNORMAL) CBC W/DIFF AUTOMATED (02/28/2025 6:33 PM CDT) Only the most recent of5 resultswithin the time period is included. WBC 11.45(H) 4.00 - 10.80 x10'3/uL 02/28/2025 6:41 PM CDT [facility] RBC 4.33 4.10 - 5.40 x10'6/uL 02/28/2025 6:41 PM CDT [facility] HGB 11.8(L) 12.0 - 16.0 G/DL 02/28/2025 6:41 PM CDT [facility] HCT 35.5(L) 36.0 - 47.0 % 02/28/2025 6:41 PM CDT [facility] MCV 82.0 78.0 - 100.0 FL 02/28/2025 6:41 PM CDT [facility] MCH 27.3 27.0 - 31.0 PG 02/28/2025 6:41 PM CDT [facility] MCHC 33.2 33.0 - 36.0 G/DL 02/28/2025 6:41 PM CDT [facility] RDW 12.2 11.5 - 14.5 % 02/28/2025 6:41 PM CDT [facility] PLT 327 150 - 350 x10'3/uL 02/28/2025 6:41 PM CDT [facility] MPV 8.9 7.4 - 10.4 FL 02/28/2025 6:41 PM CDT [facility] CBC COMMENT NORMAL REFERENCE RANGE NOT ESTABLISHED FOR THE PROPORTIONAL LEUKOCYTE DIFFERENTIAL. 02/28/2025 6:41 PM CDT [facility] NEUTROPHILS % 72.9 % 02/28/2025 6:41 PM CDT [facility] LYMPHOCYTES % 17.9 % 02/28/2025 6:41 PM CDT [facility] MONOCYTES % 7.0 % 02/28/2025 6:41 PM CDT [facility] EOSINOPHILS % 1.8 % 02/28/2025 6:41 PM CDT [facility] BASOPHILS % 0.1 % 02/28/2025 6:41 PM CDT [facility] IMMATURE GRANS % 0.3 % 02/29/20 6:41 PM CDT [facility] NRBC % 0.0 % 02/28/2025 6:41 PM CDT [facility] ABS. NEUTROPHILS 8.35(H) 1.60 - 8.30 x10'3/uL 02/28/2025 6:41 PM CDT [facility] ABS. LYMPHOCYTES 2.05 0.80 - 4.70 x10'3/uL 02/28/2025 6:41 PM CDT [facility] ABS. MONOCYTES 0.80 0.00 - 1.50 x10'3/uL 02/28/2025 6:41 PM CDT [facility] ABS. EOSINOPHILS 0.21 0.00 - 0.40 x10'3/uL 02/28/2025 6:41 PM CDT [facility] ABS. BASOPHILS 0.01 0.00 - 0.20 x10'3/uL 02/28/2025 6:41 PM CDT [facility] ABS. IMMATURE GRANULOCYTES 0.03 0.00 - 0.03 x10'3/uL 02/28/2025 6:41 PM CDT [facility] ABS. NUCLEATED RBC'S 0.00 0.00 - 0.01 x10'3/uL 02/28/2025 6:41 PM CDT [facility] 02/28/2025 6:33 PM CDT us Fantasma Pedroza DO LABORATORY Final Result Performing Organization Address [facility]/ZIP Co de Phone Number [facility] [address] [place] [address], * AMYLASE (02/28/2025 6:33 PM CDT) AMYLASE S/P/B 61 25 - 115 UNITS/L 02/28/2025 7:30 PM CDT [facility] 02/28/2025 6:33 PM CDT us Fantasma Bosch Yovany ALFARO LABORATORY Final Result Performing Organization Address [facility] Co de Phone Number [facility] [address] [place] [address], * LIPASE (02/28/2025 6:33 PM CDT) Only the most recent of2 resultswithin the time period is included. LIPASE 27 16 - 77 UNITS/L 02/28/2025 7:30 PM CDT [facility] 02/28/2025 6:33 PM CDT us Fantasma Pedroza LABORATORY Final Result Performing Organization Address [facility] Co de Phone Number [facility] [address] [place] [address], * (ABNORMAL) URINALYSIS (02/28/2025 6:12 PM CDT) Only the most recent of4 resultswithin the time period is included. COLOR (U) YELLOW 02/28/2025 6:47 PM CDT [facility] TRANSPARENCY SLIGHTLY CLOUDY 02/28/2025 6:47 PM CDT [facility] SPECIFIC GRAVITY (U) 1.030(H) 1.000 - 1.025 02/28/2025 6:47 PM CDT [facility] Comment:EQUAL TO OR GREATER THAN U PH 6.0 5.0 - 8.0 02/28/2025 6:47 PM CDT [facility] LEUKOCYTES (U) NEGATIVE NEGATIVE 02/28/2025 6:47 PM CDT [facility] NITRITES NEGATIVE NEGATIVE 02/28/2025 6:47 PM CDT [facility] PROTEIN RANDOM (U) 1+(A) NEGATIVE 02/28/2025 6:47 PM CDT [facility] GLUCOSE (U) NEGATIVE NEGATIVE 02/28/2025 6:47 PM CDT [facility] KETONES MG/DL (U) 3+(A) NEGATIVE 02/28/2025 6:47 PM CDT [facility] UROBILINOGEN 0.2 <1.0 EU/DL 02/28/2025 6:47 PM CDT [facility] BILIRUBIN (U) NEGATIVE NEGATIVE 02/28/2025 6:47 PM CDT [facility] BLOOD (U) NEGATIVE NEGATIVE 02/28/2025 6:47 PM CDT [facility] WBC/HPF 0-5 0 - 5 /HPF 02/28/2025 6:47 PM CDT [facility] RBC/HPF 0-5 0 - 5 /HPF 02/28/2025 6:47 PM CDT [facility] EPI/LPF MANY /LPF 02/28/2025 6:47 PM CDT [facility] MUCUS PRESENT 02/28/2025 6:47 PM CDT [facility] URINE SPECIMEN OBTAINED BY CLEAN CATCH PROCEDURE / Unknown 02/28/2025 6:12 PM CDT us Fantasma Pedroza DO URINE ORDERABLES Final Resul t [facility] [address] [place] [address], * CORONAVIRUS (COVID-19) ANTIGEN (02/10/2025 9:53 AM CDT) CORONAVIRUS ANTIGEN IA NEGATIVE NEGATIVE 02/10/2025 10:41 AM CDT [facility] Comment: NEGATIVE RESULTS DO NOT [...] SPECIMEN TYPE NASAL 02/10/2025 9:56 AM CDT [facility] NASAL NASAL STRUCTURE / Unknown 02/10/2025 9:53 AM CDT us Kaitlin Colon MD MICROBIOLOGY - GENERAL JOSE CORONADO Final Result Performing Organization Address [facility] Co de Phone Number [facility] [address] [place] [address], * INFLUENZA A & B (02/10/2025 9:53 AM CDT) SPECIMEN TYPE (INFLUENZA) NASOPHARYNGEAL SWAB 02/10/2025 9:56 AM CDT [facility] INFLUENZA A NEGATIVE NEGATIVE 02/10/2025 10:41 AM CDT [facility] INFLUENZA B NEGATIVE NEGATIVE 02/10/2025 10:41 AM CDT [facility] Comment: A NEGATIVE RESULT DOES NOT EXCLUDE INFLUENZA VIRUS INFECTION. IF INFLUENZA IS CIRCULATING IN YOUR COMMUNITY, A DIAGNOSIS OF INFLUENZA SHOULD BE CONSIDERED BASED ON A PATIENT'S CLINICAL PRESENTATION AND EMPIRIC ANTIVIRAL TREATMENT SHOULD BE CONSIDERED IF INDICATED. NASOPHARYNGEAL SWAB / Unknown 02/10/2025 9:53 AM CDT us Kaitlin Colon MD MICROBIOLOGY - GENERAL JOSE CORONADO Final Result Performing Organization Address City/[facility]/ZIP Co de Phone Number [facility] [address] [place] [address], * (ABNORMAL) STREP A RAPID (02/10/2025 9:53 AM CDT) SPECIMEN SOURCE THROAT 02/10/2025 9:56 AM CDT [facility] RAPID STREP TEST POSITIVE(A) NEGATIVE 02/10/2025 10:38 AM CDT [facility] Comment: CALLED TO MATHEW DUFFY 1035 02/10/25 AFW READ BACK AND VERIFIED STRUCTURE OF ANTERIOR PORTION OF NECK / Unknown 02/10/2025 9:53 AM CDT Kaitlin Colon MD MICROBIOLOGY - GENERAL JOSE CORONADO Final Result [facility] [address] [place] [address], * XR CHEST PORTABLE (01/24/2025 1:48 PM CDT) Anatomical Region Laterality Modality Chest Radiographic Jazmin ging 01/24/2025 1:50 PM CDT Impressions 01/24/2025 1:51 PM CDT IMPRESSION: No significant change. No acute disease. Referred By: Interpreted By: Paulino Mitchell MD, 01/24/2025 1:50 PM Narrative 01/24/2025 1:51 PM CDT [place] [id number] [place] [address] Examination: Portable chest. Exam time: 1342 hours. Clinical history: Left-sided chest pain. Palpitations. Comparison: 05/18/2023. Technique: AP upright view. Findings: The cardiomediastinal silhouette is stable. The heart remains within normal limits for size. Pulmonary vascularity is within normal limits. The lungs and pleural spaces remain free of any active process. The visualized bony thorax is unremarkable. Procedure Note Paulino Mitchell MD - 01/24/[address] [place] [id number] [place] [address] Examination: Portable chest. Exam time: 1342 hours. [...] By: Paulino Mitchell MD, 01/24/2025 1:50 PM us Salty Frost MD GENERAL IMAGING Final Resul t * TEST URINE (01/24/2025 1:20 PM CDT) URINE HCG TEST POSITIVE 01/24/2025 1:30 PM CDT [facility] SPECIFIC GRAVITY >1.030 01/24/2025 1:30 PM CDT [facility] URINE SPECIMEN FROM URETHRA / Unknown 01/24/2025 1:20 PM CDT us Salty Frost MD URINE ORDERABLES Final Resu lt [facility] [address] [place] [address], * TROPONIN, QUANT (01/24/2025 1:06 PM CDT) Only the most recent of3 resultswithin the time period is included. TROPONIN I HIGH SENSITIVITY 4 0 - 51 ng/L 01/24/2025 1:34 PM CDT [facility] 01/24/2025 1:06 PM CDT us Salty Frost MD LABORATORY Final Resul t [facility] [address] [place] [address], [place] [phone] * ECG 12 lead (01/24/2025 12:48 PM CDT) Only the most recent of2 resultswithin the time period is included. 01/24/2025 12:4 8 PM CDT Narrative [facility] - 01/24/2025 1:39 PM [address]T [address] 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2000 Requested By: SALTY FROST Order Number: [id number] Fifi QUIGLEY: Logan Wong Measurements Intervals [place] Rate: 79 P: 71 [place]: 147 QRS: 52 QRSD: 80 T: 45 QT: 337 QTc: 388 Interpretive Statements SINUS RHYTHM us Salty Frost MD ECG ORDERABLES Final Resul t Performing Organization Address City/[facility] Co de Phone Number [facility] * STRESS TEST (01/21/2025) us Doc Pccl Scanned SCANNING Final Result Performing Organization Address [facility] Co de Phone Number [facility] * USV AKOSUA DUPLEX LOW EXT ADAM (01/18/2025 8:57 AM CDT) Anatomical Region Laterality Modality Extremity Ultrasound 01/18/2025 9:23 AM CDT Impressions 01/18/2025 9:24 AM CDT IMPRESSION: No evidence of deep venous thrombosis. Ordered By: SAMI MEHTA Interpreted By: Paulino Mitchell MD, 01/18/2025 9:23 AM Narrative 01/18/2025 9:24 AM CDT [address] [place] [address] Examination: Bilateral lower extremity venous color Doppler [...] Procedure Note Paulino Mitchell MD - 01/18/[address] [place] [address] Examination: Bilateral lower extremity venous color Doppler [...] 7:32 PM Narrative 01/17/2025 7:34 PM CDT [address] [place] [address] CTA CHEST WITH CONTRAST PULMONARY EMBOLISM PROTOCOL [...] Procedure Note German Chang MD - 01/17/[address] [place] [address] CTA CHEST WITH CONTRAST PULMONARY EMBOLISM PROTOCOL [...] - 500 ng{FEU}/mL 01/17/2025 6:10 PM CDT [facility] Comment: CALLED TO MATHEW DUFFY [...] findings. 01/17/2025 5:50 PM CDT us Sami Luis F Laureenlaura LABORATORY Final Result [facility] [address] [place] [address], * US OB TRANSVAG (01/13/2025 6:37 PM [...] 5:28 PM Narrative 01/13/2025 5:39 PM CDT [facility] [address] [facility] [place] [address] EXAMINATION: US OB TRANSVAG HISTORY: Abdominal pain, [...] Procedure Note Taiwo Haddad MD - 01/13/2025 [place] [id number] [facility] [place] [address] EXAMINATION: US OB TRANSVAG HISTORY: Abdominal pain, [...] interstitialectopic gestation. Recommend close clinical follow-up and tdxzk-nynsilmukz-sa ultrasound as discussed above. 2. Estimated gestational age by mean sac diameter is 5 weeks, 2 days. 3. No evidence of ovarian torsion. 4. Trace free pelvic fluid. Referred By: Interpreted By: Taiwo Haddad MD, 01/13/2025 5:28 PM Kaitlin Colon MD ULTRASOUND Final Resul t * TYPE AND SCREEN (01/13/2025 4:02 PM CDT) ABO/RH B POSITIVE 01/13/2025 4:56 PM CDT [facility] ANTIBODY SCREEN NEGATIVE 01/13/2025 4:56 PM CDT [facility] SAMPLE EXPIRATION 01/16/2025,2 359 01/13/2025 4:56 PM CDT [facility] 01/13/2025 4:02 PM CDT us Kaitlin Colon MD BLOOD BANK TEST ORDERABLES Final Result [facility] [address] [place] [address], * CULTURE URINE (01/13/2025 3:43 PM CDT) SPEC DESCRIPTION URINE CLEAN CATCH 01/13/2025 3:49 PM CDT [facility] SPECIAL REQUESTS NO SPECIAL REQUEST 01/13/2025 3:49 PM CDT [facility] CULTURE RESULT NO GROWTH (< OR = 1,000 CFU/ML) 01/15/2025 10:[address] [facility] URINE SPECIMEN OBTAINED BY CLEAN CATCH PROCEDURE / Unknown 01/13/2025 3:43 PM CDT 01/13/2025 3:51 PM CDT Kaitlin Colon MD MICROBIOLOGY - GENERAL JOSE CORONADO Final Result [facility] [address] [place] [address], [place] [phone] [id number] [facility] [address] [place] [address], [place] [phone] * (ABNORMAL) BASIC METABOLIC PANEL (01/13/2025 3:23 PM CDT) SODIUM S/P/B 136 136 - 145 MMOL/L 01/13/2025 4:22 PM CDT [facility] POTASSIUM S/P/B 3.6 3.5 - 5.1 MMOL/L 01/13/2025 4:22 PM CDT [facility] CHLORIDE S/P/B 101 98 - 107 MMOL/L 01/13/2025 4:22 PM CDT [facility] CO2 27.7 21.0 - 32.0 MMOL/L 01/13/2025 4:22 PM CDT [facility] GLUCOSE 106(H) 70 - 99 MG/DL 01/13/2025 4:22 PM CDT [facility] Comment: FASTING GLUCOSE 100 TO 125 MG/DL IS CONSISTENT WITH IMPAIRED FASTING GLUCOSE. FASTING GLUCOSE >125 MG/DL IS CONSISTENT WITH DIABETES. RANDOM GLUCOSE >200 MG/DL WITH HYPERGLYCEMIC SYMPTOMS IS CONSISTENT WITH DIABETES. PER [employer] GUIDELINES BUN 11 6 - 24 MG/DL 01/13/2025 4:22 PM CDT [facility] CREATININE S/P/B 0.65 0.55 - 1.02 MG/DL 01/13/2025 4:22 PM CDT [facility] CALCIUM S/P/B 9.0 8.4 - 10.5 MG/DL 01/13/2025 4:22 PM CDT [facility] ANION GAP 7.3 5.0 - 15.0 MMOL/L 01/13/2025 4:22 PM CDT [facility] OSMOLALITY (CALC) 282 MOSM/KG 025 4:22 PM CDT [facility] Comment:REFERENCE RANGE NOT ESTABLISHED GFR ESTIMATE >90 >89 ML/MIN/1. 73 M2 01/13/2025 4:22 PM CDT [facility] GFR NOTES GFR REFERENCE S: 01/13/2025 4:22 PM CDT [facility] Comment: THE ESTIMATED GFR IS [...] <15 ml/min/1.73 m2 01/13/2025 3:23 PM CDT Kaitlin Colon MD LABORATORY Final Resul t [facility] [address] [place] [address], from Last 3 Months Insurance FLOOD Care Teams Fur Matcher Relationship Specialty Start Date End Date Tanner Paige MD [address] [facility] [place] [id number] PCP - General FAMILY PRACTICE 07/01/24 Steph Hightower MD [address] [place] [address] Consulting Physician CARDIOVASCULAR DISEASE 11/07/22 Janell Celaya APNP [id number] [place] [id number] NURSE PRACTITIONER 12/01/24
--- OUTSIDE RECORDS SUMMARY | 2025-03-03 20:35 | XMS_ITS | Clinical Summary ---
Author Organization [facility] Address [address] [place] [address] Care Team Providers Care Assistant Construction Superintendent Name Role Phone Tammi Menon DOREEN Primary [...] have care with Dr. Ortega Denson in [place], [place]. Assessment & Plan (07/04/2019 7:48 PM CDT): - no plans to initiate care [place] - gave Rx for doxylamine/pyridoxine for nausea - encouraged smoking cessation; recommended she d/w Dr. Addison Denson when she establishes care Abdominal pain in 07/04/2019 Overview (07/04/2019): 07/04/2019: presented to [facility], r/o for acute process. Transfer to [facility] for dating confirmation. Reports no [...] Department Care Team Description 12/31/2024 2:47 PM NET MAKING SUPERVISOR - 12/31/2024 5:34 PM NET MAKING SUPERVISOR [facility] Emergency Department [address] [place] [id number] Shortness of breath (Primary Dx) Discharge Disposition: [...] on file Legal Sex Female 11:55 PM NET MAKING SUPERVISOR Gender Identity Not on file Sexual [...] Comments Blood Pressure 101/69 12/31/2024 5:25 PM NET MAKING SUPERVISOR Pulse 77 12/31/2024 5:25 PM NET MAKING SUPERVISOR Temperature 37.1 C (98.7 F) 12/31/2024 2:09 PM NET MAKING SUPERVISOR Respiratory Rate 18 12/31/2024 5:25 PM NET MAKING SUPERVISOR Oxygen Saturation 100% 12/31/2024 5:25 PM NET MAKING SUPERVISOR Inhaled Oxygen Concentration - - Weight 72.7 kg (160 lb 4.4 oz) 12/31/2024 2:09 P M NET MAKING SUPERVISOR Height 165.1 cm (5' 5) 12/31/2024 2:09 PM NET MAKING SUPERVISOR Body Mass Index 26.67 12/31/2024 2:09 PM NET MAKING SUPERVISOR Plan of Treatment Health Maintenance Due [...] CHEST PE W CONTRAST ED 3:51 PM NET MAKING SUPERVISOR POCT HCG, URINE Routine 12/31/2024 3:19 PM NET MAKING SUPERVISOR XR CHEST PA LATERAL 2 VIEWS ED 12/31/2024 2:26 PM NET MAKING SUPERVISOR EGFR STAT 12/31/2024 2:16 PM NET MAKING SUPERVISOR DIFFERENTIAL AUTO STAT 12/31/2024 2:1 6 PM NET MAKING SUPERVISOR D-DIMER, QUANTITATIVE STAT 12/31/2024 2:16 PM NET MAKING SUPERVISOR COMPREHENSIVE METABOLIC PANEL STAT 12/31/2024 2:16 PM NET MAKING SUPERVISOR CBC WITH AUTO DIFFERENTIAL STAT 12/31/2024 2:16 PM NET MAKING SUPERVISOR INFLUENZA A/B, RSV, AND COVID-19 PCR STAT 12/31/2024 2:16 PM NET MAKING SUPERVISOR from Last 3 Months Results * CT Chest PE (CTA) W Contrast (12/31/2024 3:51 PM NET MAKING SUPERVISOR) Anatomical Region Laterality Modality Body N/A Computed Tomogra phy 12/31/2024 4:49 PM NET MAKING SUPERVISOR Narrative 12/31/2024 5:03 PM NET MAKING SUPERVISOR EXAM DESCRIPTION: CT CHEST PE (CTA) [...] Quang Decker M.D. LC: GABRIEL Report ID: [id number] Reading Location: [place] [address] Procedure Note Yumiko Decker MD - 12/31/2024 [...] Quang Decker M.D. LC: GABRIEL Report ID: [id number] Reading Location: [place] [address] [address] [address] [facility] [address] PROCEDURES Final Result * POCT hCG, urine (12/31/2024 3:19 PM NET MAKING SUPERVISOR) HCG, ur, POC Negative Negative Lot Number [id number] QC Backgroud Clear Acceptable QC Control Line Acceptable Urine 12/31/2024 3:19 PM NET MAKING SUPERVISOR us [facility] POINT OF CARE TEST ORDERABLES F inal Result * XR Chest PA Lateral 2 Views (12/31/2024 2:26 PM NET MAKING SUPERVISOR) Anatomical Region Laterality Modality Body, Chest N/A Computed Radiogr aphy 12/31/2024 2:43 PM NET MAKING SUPERVISOR Narrative 12/31/2024 2:43 PM NET MAKING SUPERVISOR EXAM DESCRIPTION: XR CHEST PA LATERAL [...] 12/31/2024 2:43 PM - Electronically signed by Rembetro Carney M.D. JR: Report ID: [id number] Reading Location: [id number] Procedure Note Remberto Carney MD - 12/31/2024 [...] by Remberto Carney M.D., JR: Report ID: [id number] Reading Location: [id number] [facility] IM XR PROCEDURES Final Result * Influenza A/B, RSV, and COVID-19 PCR Nasopharyngeal (12/31/2024 2:16 PM NET MAKING SUPERVISOR) COVID-19 RNA Negative Negative Comment:Testing performed by : [facility], [address] [place] [address]., [address] Influenza A RNA Negative Negative [facility] Comment:Testing performed by : [address] [address] Influenza B RNA Negative Negative [facility]EV[facility] Comment:Testing performed by : [facility], [address] [place] [address]., [address] RSV RNA Negative Negative [facility] Comment: Interpretive data: Testing performed by [facility]. This test is performed using the [employer] Xpert Xpress CoV-2/Flu/RSV plus assay. This is a multiplex, real-time reverse transcriptase PCR assay intended for the qualitative detection of nucleic acid from SARS-CoV-2, influenza A, influenza B, and respiratory syncytial virus. This assay has been cleared by the [place] Food and Drug administration. The performance characteristics have been verified by the [facility]. Results must be considered in the clinical context, and a negative result does not rule out infection. Interpretive Data last revised 2023 Testing performed by: [address] [address] Nasopharyngeal 12/31/2024 2: 16 PM NET MAKING SUPERVISOR 12/31/2024 2:24 PM NET MAKING SUPERVISOR Narrative YEVGENIY - 12/31/2024 3:09 PM NET MAKING SUPERVISOR Is the Patient experiencing symptoms consistent with COVID?->Yes [facility] MICROBIOLOGY - GENERAL JOSE CORONADO Final Result YEVGENIY [address] [facility] Department [place] [address] * eGFR (12/31/2024 2:16 PM NET MAKING SUPERVISOR) eGFR >90 >=60 mL/min/1. 73 m2 [...] was last reviewed 2021. Testing performed by: [address] [address] Blood 12/31/2024 2:16 PM NET MAKING SUPERVISOR 12/31/2024 2:24 PM NET MAKING SUPERVISOR us [facility] LAB BLOOD ORDERABLES Final Resu lt YEVGENIY [address] [facility] Department [place] [address] * (ABNORMAL) Differential, auto (12/31/2024 2:16 PM NET MAKING SUPERVISOR) Neutrophil abs 6.0 1.5 - 6.5 K/cumm Comment:Testing performed by : [address] [address] Imm gran abs 0.0 0.0 - 0.1 K/cumm YEVGENIY Comment:Testing performed by : [address] [address] Lymphocyte abs 2.7 0.8 - 3.3 K/cumm YEVGEN[facility]Y Comment:Testing performed by : [address] [address] Monocyte abs 0.9(H) 0.2 - 0.8 K/cumm [facility]EV[facility] Comment:Testing performed by : [address] [address] Eosinophil abs 0.1 0.0 - 0.5 K/cumm [facility]EV[facility] Comment:Testing performed by : [address] [address] Basophil abs 0.0 0.0 - 0.1 K/cumm YEVGENIY Comment:Testing performed by : [address] [address] Neutrophil pct 61.6 % YEVGENIY Comment: Interpretive Data Percent cell count reference ranges are not reported, since discordance with absolute values may lead to misinterpretation of CBC data. Current Interpretive Data was last revised on 2018. Testing performed by: [address] [address] Imm gran pct 0.3 % [facility] Comment: Interpretive Data Percent cell count reference ranges are not reported, since discordance with absolute values may lead to misinterpretation of CBC data. Current Interpretive Data was last revised on 2018. Testing performed by: [address] [address] Lymphocyte pct 27.3 % [facility] Comment: Interpretive Data Percent cell count reference ranges are not reported, since discordance with absolute values may lead to misinterpretation of CBC data. Current Interpretive Data was last revised on 2018. Testing performed by: [address] [address] Monocyte pct 9.4 % [facility] Comment: Interpretive Data Percent cell count reference ranges are not reported, since discordance with absolute values may lead to misinterpretation of CBC data. Current Interpretive Data was last revised on 2018. Testing performed by: [address] [address] Eosinophil pct 1.2 % [facility]EV[facility]Y Comment: Interpretive Data Percent cell count reference ranges are not reported, since discordance with absolute values may lead to misinterpretation of CBC data. Current Interpretive Data was last revised on 2018. Testing performed by: [address] [address] Basophil pct 0.2 % [facility] Comment: Interpretive Data Percent cell count reference ranges are not reported, since discordance with absolute values may lead to misinterpretation of CBC data. Current Interpretive Data was last revised on 2018. Testing performed by: [address] [address] Blood 12/31/2024 2:16 PM NET MAKING SUPERVISOR 12/31/2024 2:24 PM NET MAKING SUPERVISOR [facility] LAB BLOOD ORDERABLES Final Resu lt YEVGENIY [address] [facility] Department [place] [address] * (ABNORMAL) CBC with auto differential (12/31/2024 2:16 PM NET MAKING SUPERVISOR) WBC 9.8 3.8 - 9.9 K/cumm Comment:Testing performed by : [address] [address] Hgb 12.8 11.9 - 15.5 g/dL [facility] Comment:Testing performed by : [address] [address] Hct 40.0 35.6 - 45.5 % [facility] Comment:Testing performed by : [address] [address] Plt 288 150 - 400 K/cumm [facility] Comment:Testing performed by : [address] [address] MPV 9.7 9.1 - 12.3 fL [facility] Comment:Testing performed by : [address] [address] RBC 4.74 3.90 - 5.20 M/cumm [facility] Comment:Testing performed by : [address] [address] MCV 84.4 81.3 - 96.4 fL [facility] Comment:Testing performed by : [address] [address] MCH 27.0(L) 27.1 - 33.3 pg [facility]Y Comment:Testing performed by : [address] [address] MCHC 32.0(L) 32.3 - 35.7 g/dL [facility]EV[facility]Y Comment:Testing performed by : [address] [address] RDW CV 12.2 11.1 - 14.9 % YEVGENIY Comment:Testing performed by : [address], [address] RDW SD 36.9 35.7 - 48.1 fL YEVGENIY Comment:Testing performed by : [facility], [address] [place] [address]., [address] NRBC abs 0.00 0.00 - 0.01 K/cumm YEVGENIY TOM Comment:Testing performed by : [facility], [address] [place] [address]., [address] Blood 12/31/2024 2:16 PM NET MAKING SUPERVISOR 12/31/2024 2:24 PM NET MAKING SUPERVISOR Lesleymorgan Soria MA LAB BLOOD ORDERABLES Final Resu lt Performing Organization Address [facility] Co de Phone Number YEVGENIY [address] [facility] [place] [address] * (ABNORMAL) D-dimer, quantitative (12/31/2024 2:16 PM NET MAKING SUPERVISOR) D-Dimer 720(H) <=499 ng/mL FEU Comment: [...] last revised on 2019. Testing performed by: [address] [address] Blood 12/31/2024 2:16 PM NET MAKING SUPERVISOR 12/31/2024 2:24 PM NET MAKING SUPERVISOR Lesley Grifton MA LAB BLOOD ORDERABLES Final Resu lt Performing Organization Address [facility]/ZIP Co de Phone Number YEVGENIY [address] [facility] [place] [address] * (ABNORMAL) Comprehensive metabolic panel (12/31/2024 2:16 PM NET MAKING SUPERVISOR) Sodium 137 135 - 145 mmol/L Comment:Testing performed by : [address] [address] Potassium, pl 4.1 3.3 - 4.9 mmol/L [facility]EV[facility] Comment:Testing performed by : [address] [address] Chloride 103 97 - 110 mmol/L [facility] Comment:Testing performed by : [address], [place]., [address] CO2 24 22 - 32 mmol/L [facility] Comment:Testing performed by : [address] [address] Anion gap 10 2 - 15 mmol/L [facility] Comment:Testing performed by : [address], [place]., [address] BUN 11 6 - 25 mg/dL [facility] Comment:Testing performed by : [address], [place]., [address] Creatinine 0.57(L) 0.60 - 1.10 mg/dL [facility] Comment:Testing performed by : [address] [address] Glucose 89 70 - 199 mg/dL [facility] Comment: Interpretive Data Fasting glucose [...] was last revised 2022. Testing performed by: [address] [address] Calcium 9.7 8.5 - 10.3 mg/dL [facility] Comment:Testing performed by : [address] [address] Bilirubin, total 0.2 0.1 - 1.2 mg/dL YEVGENIY TOM Comment:Testing performed by : [address] [address] Protein, pl 7.9 6.5 - 8.5 g/dL [facility] Comment:Testing performed by : [address] [address] Albumin 4.4 3.5 - 5.0 g/dL [facility] Comment:Testing performed by : [address] [address] Alk phos 89 40 - 130 Units/L [facility] Comment:Testing performed by : [address] [address] ALT 21 7 - 45 Units/L [facility] Comment:Testing performed by : [address] [address] AST 24 10 - 45 Units/L [facility] Comment:Testing performed by : [address] [address] Blood 12/31/2024 2:16 PM NET MAKING SUPERVISOR 12/31/2024 2:24 PM NET MAKING SUPERVISOR us [facility] LAB BLOOD ORDERABLES Final Resu lt YEVGENIY [address] [facility] [place] [address] from Last 3 Months Insurance [facility] Care Teams Assistant Construction Superintendent Relationship Specialty Start Date End Date Tammi Menon LauraDOREEN [address] Pediatric Emerg. Dept. [place] [id number] PCP - General Family Medicine 12/31/24
--- OUTSIDE RECORDS SUMMARY | 2025-03-03 20:35 | XMS_ITS | Continuity of Care Document ---
Author Organization [facility] [place] Address [address] [place] [address] Care Team Providers Care Field Talent Qualification Specialist Name Role Phone CARLOS ESTRADA Primary Care Provider [phone] Assessment No assessment recorded. Plan of Treatment Reminders Order Date Submit Date Provider Last Modified By Organization Details Last Modified Time Details Appointments OB ROUTINE 2024 08:30A M Anju Mcnamara CNM Not available Not available Not available Lab None recorded. Referral None recorded. Procedures None recorded. Surgeries None recorded. Imaging US, obstetric , nuchal transluce ncy 2024 025 [email or web address] [address], [place], [address], 03/03/2025 15:59:48 Medication Orders None recorded. Patient TargetsNo targets recorded. Patient InstructionsNo instructions recorded. Reason for Referral None Reported. Results Created Date Observation Date Name Description Value Unit Range Abnormal Flag Note LastModifiedBy Organization Detail LastModifiedTime 03/02/2003/02/2025 US, obste tric, nucha l trans lucen cy No observ ation record ed. [email or web address] [place] [address], [place], [address], 03/02/2025 13:35:30 03/02/20 25 03/02/2025 US, obste tric, nucha l trans lucen cy No observ ation record ed. [email or web address] [address], [place], [address], 03/03/2025 14:08:39 Result Notes None recorded. Problems Name Problem SNOMED Code Status Onset Date Resolution Date Notes Provider Name and Address Organization Details Recorded Time Gestatio n period, 37 weeks 89907159 Completed 201907/05/2021 37 weeks gestatio n of pregnanc y;Record ed Elsewher e: No Locat ion: [facility] S ource: EHR Meal Cooker yvrose: N Nataly[place] ce ID: 0001 Gigi lable Time: 09:00:00 AM Karina ramos [facility] 10:15:[address] Concept Completed 201907/05/2021 Matern care for abnlt fetl hrt rate or rhym, 3rd tri, unsp;Rec orded Elsewher e: No Locat ion: [facility] S ource: EHR Meal Cooker yvrose: N Natalyati ce ID: 0001 Gigi lable Time: 08:45:00 AM Karina ramos [facility] 10:15:29 Gestatio nal diabetes mellitus 76646346 Completed 201907/05/2021 Gestatio nal diabetes mellitus in pregnanc y, diet controll ed;Recor ded Elsewher e: No Locat ion: [facility] S ource: EHR Meal Cooker yvrose: N Natalyati ce ID: 0001 Gigi lable Time: 11:45:00 AM Karina ramos [facility] 10:15:25 Gestatio n period, 38 weeks 84548727 Completed 201907/05/2021 38 weeks gestatio n of pregnanc y;Record ed Elsewher e: No Locat ion: [facility] S ource: EHR Meal Cooker yvrose: N Natalyati ce ID: 0001 Gigi lable Time: 11:30:00 AM Karina ramos [facility] 10:15:13 Normal pregnanc y in multigra jessy 7520225241 01088 Completed 201907/05/2021 Encounte r for supervis ion of other normal pregnanc y, 3rd trimeste r;Record ed Elsewher e: No Locat ion: [facility]da[facility] cast[facility] S ource: EHR Meal Cooker yvrose: N Dennis ce ID: 0001 Gigi lable Time: 10:45:00 AM Karina Burroughs null, [facility] 1 10:15:27 Amenorrh ea 06422926 Completed 202007/10/2021 Tammi Jones null, [facility] 1 13:08:35 Pregnanc y 13978524 Completed 202003/29/2022 Karina Burroughs null, [facility] 4 11:00:49 Hypereme sis 066134623 Completed phenerga n now prn Asia arias [facility], [facility] 2 16:43:51 Anxiety in pregnanc y 4350152700 9109 Completed will continue to monitor Asia ramos, [facility] 2 16:43:51 Past pregnanc y history of gestatio nal diabetes mellitus 675853528 Completed Early 1 hr GTT @ 20wks 11/03 APPT Asia ramos, [facility] 2 16:43:51 Spinal muscular atrophy 7615257 Completed Carrier - Not in contact with FOB. Asia ramos, [facility] 2 16:43:51 Pregnanc y 79473656 Completed 202304/22/2024 Karina Burroughs null, [facility] 4 11:00:49 Anxiety 64946581 Completed prozac Karina Burroughs null, [facility] 4 11:00:46 Nausea 918269613 Completed d/c zofran pump 11/08 per pt request Karina ramos, [facility] 4 11:00:46 Postpart um hemorrha ge 08239248 Completed 2017 with d&c Karina ramos, [facility] 4 11:00:46 Headache 85909573 Active 2023 Karina ramos, [facility] 5 16:19:28 Pregnanc y 17813758 Active 2023 Karina ramos, [facility] 5 16:19:28 Uncompli cated moderate persiste nt asthma 836381286 Active 2024 albutero l prn Shawn Mcginnis MD [address], [place], [address], [facility] 5 13:08:36 Anxiety 86492507 Active 2024 sertrali ne started 03/02/25 Shawn Mcginnis MD [address], [place], [address], [facility] 5 13:09:23 Nausea and vomiting 28613541 Active 2024 Shawn Mcginnis MD [address], [place], [address], [facility] 5 13:20:27 Notes:Order faxed to vascula r access 08/10 for PICC line, and home health already caring for pt. Vladimir RDZ at [phone] Problem Notes None recorded. Procedures Surgical History Date Name Laterality Status Provider Name and Address Organization Details Recorded Time 5 Date of Last Pap Smear completed Karina Burroughs [facility] 01/28/2025 11:19:42 4 Nexplanon Removal completed Shawn Mcginnis MD [address], [place], [address], [place] [facility] 08/05/2024 15:09:58 4 Control Implant Insertion completed Anju Mcnamara CNM [address], [place], [address], [facility] 05/08/2024 17:59:34 8 Dilation and Curettage completed Karina Burroughs [facility] 07/05/2021 10:17:50 Imaging Results Imaging Date Name Status LastModified by Organization Details LastModified Time 03/02/2025 US, obstetric, nuchal translucency completed [email or web address] [place] [address], [place], [address], 03/02/2025 13:35:30 Procedure Notes None recorded. Medical Equipment None Reported. Allergies Allergen ID Allergen Name Allergen Category Reaction Reaction Severity Criticality Documentation Date Start Date Code Code System Note Provider Name and Address Organization Details Recorded Time 69285 terbutali ne medicatio n anaphylax is Not available Not available 01/27/20252021 [address] [facility], [facility] 16:19:27 Medications Name Sig Start Date [...] Available Not Available ondansetr on HCl 4 mg/5 mL oral solution active Not Available Not Available Not Available amitripty [...] BY MOUTH TWICE DAILY FOR 10 DAYS 03/02 completed Not Available Not Available Not Available [...] 1 TABLET BY MOUTH EVERY 4 HOURS 03/02 completed Not Available Not Available Not Available ibuprofen 400 mg tablet TAKE 1 [...] completed Not Available Not Available Not Available sertralin e 50 mg tablet take 1 tablet by oral route every day 2024 active Not Available Not Available Not Avai lable medroxypr ogesteron e 150 mg/mL intramusc ular [...] MOUTH EVERY 12 HOURS FOR 7 DAYS 03/02 completed Not Available Not Available Not Available 03/27 completed Not Available Not Available Not Available Symbicort 80 mcg-4.5 mcg/actua tion HFA aerosol inhaler INHALE 2 PUFFS BY MOUTH TWICE DAILY active Not Available Not Available No t Available ferrous sulfate 15 mg iron (75 mg)/mL oral drops 07/05 completed Prescrib ed Elsewher e: Yes Loca tion: [facility] odify By: prabhjot Lee r DateTime [...] n (supplie d by office) insert lot [id number] Exp 01/2026 Not Available Not Available Not Available 28 mg iron-800 mcg tablet 07/05 completed Prescrib ed Elsewher e: Yes [facility] By: prabhjot Lee r [...] and Address Organization Details Last Updated DateTime 03/02/2025 162.56 cm 27.1 kg/m2 23809.59 g 116 mm[Hg] 81 mm[Hg] Melyssa Gal [facility] 12:59:17 Social History Question Answer Notes LastModified by Organizat ion Details LastModified Time Tobacco Smoking Status Former Smoker Karina Burroughs null, [facility] 07/05/2021 09:06:21 What Is Your Level Of Alcohol Consumption? Occasional [email or web address] Information not available 07/05/2021 If You Are , What Was Your Level Of Alcohol Consumption Prior To ? None [email or web address] Information not available 07/05/2021 Are You Blind Or Do You Have Difficulty Seeing? No [email or web address] Information not available 07/05/2021 What Is Your Level Of Caffeine Consumption? Heavy [email or web address] Information not available 07/05/2021 In The 14 Days Before Symptom Onset, Have You Had Close Contact With A Laboratory-confir med COVID-19 While That Case Was Ill? No [email or web address] Information not available 07/05/2021 In The 14 Days Before Symptom Onset, Have You Had Close Contact With A Person Who Is Under Investigation For COVID-19 While That Person Was Ill? No [email or web address] Information not available 07/05/2021 Have You Been To An Area Known To Be High Risk For COVID-19? No Information not available 07/05/2021 Are You Deaf Or Do You Have Serious Difficulty Hearing? No [email or web address] Information not available 07/05/2021 What Type Of Diet Are You Following? REGULAR [email or web address] Information not available 07/05/2021 Which Illicit Or Recreational Drugs Have You Used? Marijuana [email or web address] Information not available 07/05/2021 Do You Or Have You Ever Used E-cigarettes Or Vape? Current User Of Electronic Cigarettes Information not available 07/05/2021 Have You Ever Been Counseled For Unhealthy Alcohol Use? No [email or web address] Information not available 07/05/2021 Do You Use Your Seat Belt Or Car Seat Routinely? Yes [email or web address] Information not available 07/05/2021 Do You Have Smoke And Carbon Monoxide Detectors In Your Home? Yes [email or web address] Information not available 07/05/2021 Do You Or Have You Ever Used Smokeless Tobacco? Never Used Smokeless Tobacco [email or web address] Information not available 07/05/2021 Do You Feel Stressed (tense, Restless, Nervous, Or Anxious, Or Unable To Sleep At Night)? [id number] [email or web address] Information not available 07/05/2021 Do You Use Any Illicit Or Recreational Drugs? Yes [email or web address] Information not available 07/05/2021 Do You Use Sunscreen Routinely? Yes [email or web address] Information not available 07/05/2021 Has Tobacco Cessation Counseling Been Provided? No [email or web address] Information not available 07/05/2021 Have You Used IV Drugs? No [email or web address] Information not available 07/05/2021 Do You Or Have You Ever Used Any Other Forms Of Tobacco Or Nicotine? Yes [email or web address] Information not available 07/05/2021 Sex: Unknown Functional Status Question Answer Note LastModified by Organizat ion Details LastModified Time Do you have difficulty walking or climbing stairs? No [email or web address] Information not available 12/06/2021 Are you able to walk? YESWOREST [email or web address] Information not available 07/05/2021 Are you able to care for yourself? Yes [email or web address] Information not available 12/06/2021 Do you have difficulty dressing or bathing? No [email or web address] Information not available 12/06/2021 What is your exercise level? Occasional [email or web address] Information not available 07/05/2021 Mental Status None recorded. Family History Relationship Description Onset Age of this Age Resolved Age Notes LastModified by Organization Details LastModified Time Father No current problems or disability [email or web address] Not available 05/2021 09:06:31 Mother No current problems or disability [email or web address] Not available 05/2021 09:06:31 Medical History Condition [...] Method None LMP Approximate Obstetrics History GPAL:G 6 P 4 0 1 4 Type Value Full Term 4 Spontaneous 1 Living 4 Total 6 Past Encounters Encounter ID Performer Location Encounter Start Date Encounter Closed Date Diagnosis/Indication Diagnosis SNOMED-CT Code Diagnosis ICD10 Code Diagnosis Note [id number] Shawn Mcginnis MD [place] [address] [address] 02/04/2025 10:09:23 02/04/2025 10:48:21 Headache 68462275 R51.9 Nausea and vomiting 3 1999 R11.2 25-year-ol d female with severe nausea, 8 weeks gestation, hyperemesi s gravidarum . Patient states Zoan is not working anymore. She is unable to keep liquids down. We talked about various treatment options in detail. Spent over 20 minutes face-to-fa ce with the patient and on her care in total. We agreed to send to labor and delivery for IV fluids. [id number] Shawn Mcginnis MD [place] [address] [address] 03/02/2025 12:17:19 03/02/2025 12:53:50 screening [id number] Z36.82 Z3A.11 [id number] Shawn Mcginnis MD [place] [address] [address] 03/02/2025 12:17:40 03/02/2025 15:40:54 Anxiety 02006661 F41.9 care status 24 3405430 Z34.81 Health Concerns Section Related Observation LastModified by Organization Detai ls LastModified Time None Recorded Concern Status LastModified by Organization Details LastModified Time None Recorded Payers Encounter Date Sequence Insurance Name Policy Number Policy Roberts Covered Member ID Roberts Member ID Guarantor Name 03/02/2025 1 [facility] (MEDICAID HMO) [id number] Yuni Mejia [id number] Yuni Mejia OBGyn Episode Ob Episode Information Episode Created Date Number of Fetuses Patient Bloodtype Patient rh Status Prepregnancy Weight lbs Domestic Partner Domestic Partner Phone Father Name Compound Machine Operator Status 03/02/20 1 B Positive 164 OPEN Fetus Data First Name Last Name Admitted to NICU Weight (g) Sex Living Outcome Pediatric Complications Fetus ID Race Codes Race Delivery Type [id number] Problems Problem Notes Problem Name Start Date End Date Resolution Snomed Code Not e Uncomplicated moderate persistent asthma 03/02/2025 180116679 albuterol prn Nausea and vomiting 03/02/2025 28047995 Anxiety 03/02/2025 90317311 sertralin e started 03/02/25 Jun Calculation Initial Jun Date Initial Exam Date Initial Exam Provider Initial Ultrasound Date Last Menstrual Period Date Ultra Sound Weeks Gestation 03/02/2025 03/02/2025 12/11/2024 12 Eighteen To Twenty Week Jun Update Ultra Sound Date Fundal Height At Umbil Quickening Date Ultra Sound Latest Weeks Gestation Final Jun Confirmed By Final Jun Confirmed Date Final Jun Date Ultra Sound Latest Days Gestation 0 09/11/20 25 0 Pre- Flowsheet Flowsheet Date 03/02/2025 Gibson Score Blood Edema Fundus Height Fundus Units Glucose Ketones Leukocytes Nitrite Labor Signs Protein Cervic Dilation Cervic Effacement Cervic Station Type Weight in lbs Pre/Post Dialysis Refused Weight 158.263840546128 BP Diastolic BP Location Tested BP Systolic BP Type 81 L arm 116 sitting Fetus Heart Rate Present Fetus Movement Comments this patient is a 25-year-ol d multiparous female at 12 weeks' gestation who presents for initial care. She has a history of term vaginal births. Her medical, surgical, obstetric history is unremarkable. She is vaccinated. She was given precautions recommendations for . We talked about vaccines in . Talked about care in detail. She is having genetic testing. She had a normal 12 week ultrasound. To begin routine care. Menstrual History Last Menstrual Date Menses Monthly On Bcp Conception Prior Menses Frequency Hcg Plus Date Menarche Onset Age 0212/11/2024 true Delivery Information Delivery Date Delivery Type Labor Anesthesia Weeks Gestation Incision Type Labor Labor Length Hrs Delivered By Post Complications Tubal Sterilization Discharge Date Comments Discharge Information Feeding Method Contraceptive Method Maternal HG B and HCT Levels
--- OUTSIDE RECORDS SUMMARY | 2025-03-03 20:35 | XMS_ITS | Encounter Summary ---
Author Organization [facility] Healthcare Address [address] [place] [address] Care Team Providers Care Special Client Bus Driver Name Role Phone Kear Flanagan NP Primary Care Provider [phone] Tammi Menon APRN Primary Care Provider Encounter Details Date Type Department Care Team (Late st Contact Info) Description 10/25/2023 Orders Only [facility] Home Care Services [address] [place] [address] Carli Whitaker, [facility] Social History Tobacco Use Types [...] on file Legal Sex Female 11:55 PM CUSTOMER EXPERT Gender Identity Not on file Sexual Orientation Not on file documented as of this encounter Plan of Treatment Not on file documented as of this encounter Visit Diagnoses Not on filedocumented in this encounter Additional Health Concerns Infection Onset Date Last Indicated Resolved Time COVID: Suspected 12/31/2024 12/31/2024 12/31/2024 3:10 PM CUSTOMER EXPERT documented as of this encounter Care Teams Special Client Bus Driver Relationship Specialty Start Date End Date Kera Flanagan, [place] PCP - General 05/30/22 12/30/24 Tammi Menon APRN [address] [place] [address] PCP - General Family Medicine 12/31/24 documented as of this encounter
--- OUTSIDE RECORDS SUMMARY | 2025-03-03 20:35 | XMS_ITS | Referral Summary ---
Author Organization [facility] Address [address] [place] [address] Care Team Providers Care Sr. Strategic Sourcing Manager Name Role Phone Tammi Menon DOREEN Primary Care Provider Encounters Date Type Department Care Team Description 12/31/2024 2:47 PM SAT ACT INSTRUCTOR - 12/31/2024 5:34 PM [facility] Emergency [facility] Emergency Department [facility] [place] [address] Shortness of breath (Primary Dx) [...] have care with Dr. Ortega Denson in [place], [place]. Assessment & Plan (07/04/2019 7:48 PM CDT): - no plans to initiate care in [facility] - gave Rx for doxylamine/pyridoxine for nausea - encouraged smoking cessation; recommended she d/w Dr. Addison Denson when she establishes care Abdominal pain in 07/04/2019 Overview (07/04/2019): 07/04/2019: presented to [facility], r/o for acute process. Transfer to [facility] for dating confirmation. Reports no [...] on file Legal Sex Female 11:55 PM SAT ACT INSTRUCTOR Gender Identity Not on file Sexual Orientation Not on file Last Filed Vital Signs Vital Sign Reading Time Taken Comments Blood Pressure 101/69 12/31/2024 5:25 PM SAT ACT INSTRUCTOR Pulse 77 12/31/2024 5:25 PM SAT ACT INSTRUCTOR Temperature 37.1 C (98.7 F) 12/31/2024 2:09 PM SAT ACT INSTRUCTOR Respiratory Rate 18 12/31/2024 5:25 PM SAT ACT INSTRUCTOR Oxygen Saturation 100% 12/31/2024 5:25 PM SAT ACT INSTRUCTOR Inhaled Oxygen Concentration - - Weight 72.7 kg (160 lb 4.4 oz) 12/31/2024 2:09 P M SAT ACT INSTRUCTOR Height 165.1 cm (5' 5) 12/31/2024 2:09 PM SAT ACT INSTRUCTOR Body Mass Index 26.67 12/31/2024 2:09 PM SAT ACT INSTRUCTOR Plan of Treatment Not on file Procedures Procedure Name Priority Date/Time Associated Diagnosis Comments CT CHEST PE W CONTRAST ED 3:51 PM SAT ACT INSTRUCTOR POCT HCG, URINE Routine 12/31/2024 3:19 PM SAT ACT INSTRUCTOR XR CHEST PA LATERAL 2 VIEWS ED 12/31/2024 2:26 PM SAT ACT INSTRUCTOR EGFR STAT 12/31/2024 2:16 PM SAT ACT INSTRUCTOR DIFFERENTIAL AUTO STAT 12/31/2024 2:1 6 PM SAT ACT INSTRUCTOR D-DIMER, QUANTITATIVE STAT 12/31/2024 2:16 PM SAT ACT INSTRUCTOR COMPREHENSIVE METABOLIC PANEL STAT 12/31/2024 2:16 PM SAT ACT INSTRUCTOR CBC WITH AUTO DIFFERENTIAL STAT 12/31/2024 2:16 PM SAT ACT INSTRUCTOR INFLUENZA A/B, RSV, AND COVID-19 PCR STAT 12/31/2024 2:16 PM SAT ACT INSTRUCTOR from Last 3 Months Results * CT Chest PE (CTA) W Contrast (12/31/2024 3:51 PM SAT ACT INSTRUCTOR) Anatomical Region Laterality Modality Body N/A Computed Tomogra phy 12/31/2024 4:49 PM SAT ACT INSTRUCTOR Narrative 12/31/2024 5:03 PM SAT ACT INSTRUCTOR EXAM DESCRIPTION: CT CHEST PE (CTA) W [...] Quang Decker M.D. LC: GABRIEL Report ID: [id number] Reading Location: [id number] Procedure Note Yumiko Decker MD - 12/31/2024 [...] Quang Decker M.D. LC: GABRIEL Report ID: [id number] Reading Location: [place] [address] [facility] PROCEDURES Final Result * POCT hCG, urine (12/31/2024 3:19 PM SAT ACT INSTRUCTOR) HCG, ur, POC Negative Negative Lot Number [id number] QC Backgroud Clear Acceptable QC Control Line Acceptable Urine 12/31/2024 3:19 PM SAT ACT INSTRUCTOR Lesley DE [facility] POINT OF CARE TEST ORDERABLES F inal Result * XR Chest PA Lateral 2 Views (12/31/2024 2:26 PM SAT ACT INSTRUCTOR) Anatomical Region Laterality Modality Body, Chest N/A Computed Radiogr aphy 12/31/2024 2:43 PM SAT ACT INSTRUCTOR Narrative 12/31/2024 2:43 PM SAT ACT INSTRUCTOR EXAM DESCRIPTION: XR CHEST PA LATERAL 2 [...] by Remberto Carney M.D. JR: Report ID: [id number] Reading Location: [id number] Procedure Note Remberto Carney MD - 12/31/2024 [...] by Remberto Carney M.D. JR: Report ID: [id number] Reading Location: [place] [address] us Lesley DE LEON IMG XR PROCEDURES Final Result * Influenza A/B, RSV, and COVID-19 PCR Nasopharyngeal (12/31/2024 2:16 PM SAT ACT INSTRUCTOR) Pathologist [facility] COVID-19 RNA Negative Negative Comment:Testing performed by : [address], [address] Influenza A RNA Negative Negative [facility] Comment:Testing performed by : [address] [address] Influenza B RNA Negative Negative [facility] Comment:Testing performed by : [address], [address] RSV RNA Negative Negative [facility] Comment: Interpretive data: Testing performed by [facility]. This test is performed using the [employer] Xpert Xpress CoV-2/Flu/RSV plus assay. This is a multiplex, real-time reverse transcriptase PCR assay intended for the qualitative detection of nucleic acid from SARS-CoV-2, influenza A, influenza B, and respiratory syncytial virus. This assay has been cleared by the [place] Food and Drug administration. The performance characteristics have been verified by the [facility]. Results must be considered in the clinical context, and a negative result does not rule out infection. Interpretive Data last revised 2023 Testing performed by: [address] [address] Nasopharyngeal 12/31/2024 2: 16 PM SAT ACT INSTRUCTOR 12/31/2024 2:24 PM SAT ACT INSTRUCTOR Narrative YEVGENIY - 12/31/2024 3:09 PM SAT ACT INSTRUCTOR Is the Patient experiencing symptoms consistent with COVID?->Yes us Lesley [facility] LAB MICROBIOLOGY - GENERAL ORDE RABLES Final Result Performing Organization Address City/State/[facility] de Phone Number YEVGENIY [facility] Department [place] [address] * eGFR (12/31/2024 2:16 PM SAT ACT INSTRUCTOR) Pathologist [facility] eGFR >90 >=60 mL/min/1. 73 m2 [...] last reviewed 2021. Testing performed by: [address] [address] Blood 12/31/2024 2:16 PM SAT ACT INSTRUCTOR 12/31/2024 2:24 PM SAT ACT INSTRUCTOR us Lesley [facility] LAB BLOOD ORDERABLES Final Resu lt Performing Organization Address [facility] Co de Phone Number YEVGENIY [facility] Department [place] [address] * (ABNORMAL) Differential, auto (12/31/2024 2:16 PM SAT ACT INSTRUCTOR) Pathologist [facility] Neutrophil abs 6.0 1.5 - 6.5 K/cumm Comment:Testing performed by : [address] [address] Imm gran abs 0.0 0.0 - 0.1 K/cumm YEVGEN[facility]Y Comment:Testing performed by : [address] [address] Lymphocyte abs 2.7 0.8 - 3.3 K/cumm [facility] Comment:Testing performed by : [address], [place]., [address] Monocyte abs 0.9(H) 0.2 - 0.8 K/cumm [facility] Comment:Testing performed by : [address], [place]., [address] Eosinophil abs 0.1 0.0 - 0.5 K/cumm [facility] Comment:Testing performed by : [address], [place]., [address] Basophil abs 0.0 0.0 - 0.1 K/cumm [facility] Comment:Testing performed by : [address] [address] Neutrophil pct 61.6 % [facility] Comment: Interpretive Data Percent cell count reference ranges are not reported, since discordance with absolute values may lead to misinterpretation of CBC data. Current Interpretive Data was last revised on 2018. Testing performed by: [address] [address] Imm gran pct 0.3 % [facility] Comment: Interpretive Data Percent cell count reference ranges are not reported, since discordance with absolute values may lead to misinterpretation of CBC data. Current Interpretive Data was last revised on 2018. Testing performed by: [address] [address] Lymphocyte pct 27.3 % [facility] Comment: Interpretive Data Percent cell count reference ranges are not reported, since discordance with absolute values may lead to misinterpretation of CBC data. Current Interpretive Data was last revised on 2018. Testing performed by: [address] [address] Monocyte pct 9.4 % [facility] Comment: Interpretive Data Percent cell count reference ranges are not reported, since discordance with absolute values may lead to misinterpretation of CBC data. Current Interpretive Data was last revised on 2018. Testing performed by: [address] [address] Eosinophil pct 1.2 % [facility] Comment: Interpretive Data Percent cell count reference ranges are not reported, since discordance with absolute values may lead to misinterpretation of CBC data. Current Interpretive Data was last revised on 2018. Testing performed by: [address] [address] Basophil pct 0.2 % [facility] Comment: Interpretive Data Percent cell count reference ranges are not reported, since discordance with absolute values may lead to misinterpretation of CBC data. Current Interpretive Data was last revised on 2018. Testing performed by: [address] [address] Blood 12/31/2024 2:16 PM SAT ACT INSTRUCTOR 12/31/2024 2:24 PM SAT ACT INSTRUCTOR us Lesley [facility] LAB BLOOD ORDERABLES Final Resu lt [facility] Department [place] [address] * (ABNORMAL) CBC with auto differential (12/31/2024 2:16 PM SAT ACT INSTRUCTOR) WBC 9.8 3.8 - 9.9 K/cumm Comment:Testing performed by : [address] [address] Hgb 12.8 11.9 - 15.5 g/dL [facility] Comment:Testing performed by : [address] [address] Hct 40.0 35.6 - 45.5 % [facility] Comment:Testing performed by : [address] [address] Plt 288 150 - 400 K/cumm [facility] Comment:Testing performed by : [address] [address] MPV 9.7 9.1 - 12.3 fL [facility] Comment:Testing performed by : [address] [address] RBC 4.74 3.90 - 5.20 M/cumm [facility] Comment:Testing performed by : [address] [address] MCV 84.4 81.3 - 96.4 fL [facility] Comment:Testing performed by : [address] [address] MCH 27.0(L) 27.1 - 33.3 pg [facility]OM Comment:Testing performed by : [address] [address] MCHC 32.0(L) 32.3 - 35.7 g/dL [facility] Comment:Testing performed by : [address] [address] RDW CV 12.2 11.1 - 14.9 % [facility] Comment:Testing performed by : [address] [address] RDW SD 36.9 35.7 - 48.1 fL [facility] Comment:Testing performed by : [address] [address] NRBC abs 0.00 0.00 - 0.01 K/cumm [facility] Comment:Testing performed by : [address] [address] Blood 12/31/2024 2:16 PM SAT ACT INSTRUCTOR 12/31/2024 2:24 PM SAT ACT INSTRUCTOR us Lesley [facility] LAB BLOOD ORDERABLES Final Resu lt YEVGENIY [address] [facility] Department of Laboratories [place], [place] [id number] * (ABNORMAL) D-dimer, quantitative (12/31/2024 2:16 PM SAT ACT INSTRUCTOR) D-Dimer 720(H) <=499 ng/mL FEU Comment: Interpretive [...] revised on 2019. Testing performed by: [address] [address] Blood 12/31/2024 2:16 PM SAT ACT INSTRUCTOR 12/31/2024 2:24 PM SAT ACT INSTRUCTOR us Lesley [facility] LAB BLOOD ORDERABLES Final Resu lt YEVGENIY [address] Department [place] [address] * (ABNORMAL) Comprehensive metabolic panel (12/31/2024 2:16 PM SAT ACT INSTRUCTOR) Sodium 137 135 - 145 mmol/L Comment:Testing performed by : [address] [address] Potassium, pl 4.1 3.3 - 4.9 mmol/L [facility] Comment:Testing performed by : [address] [address] Chloride 103 97 - 110 mmol/L [facility] Comment:Testing performed by : [address] [address] CO2 24 22 - 32 mmol/L [facility] Comment:Testing performed by : [address] [address] Anion gap 10 2 - 15 mmol/L [facility] Comment:Testing performed by : [address] [address] BUN 11 6 - 25 mg/dL [facility] Comment:Testing performed by : [address] [address] Creatinine 0.57(L) 0.60 - 1.10 mg/dL [facility] Comment:Testing performed by : [address] [address] Glucose 89 70 - 199 mg/dL YEVGENIY [...] last revised 2022. Testing performed by: [address] [address] Calcium 9.7 8.5 - 10.3 mg/dL [facility] Comment:Testing performed by : [address] [address] Bilirubin, total 0.2 0.1 - 1.2 mg/dL [facility] Comment:Testing performed by : [address] [address] Protein, pl 7.9 6.5 - 8.5 g/dL [facility] Comment:Testing performed by : [address] [address] Albumin 4.4 3.5 - 5.0 g/dL [facility] Comment:Testing performed by : [address] [address] Alk phos 89 40 - 130 Units/L [facility] Comment:Testing performed by : [address] [address] ALT 21 7 - 45 Units/L [facility] Comment:Testing performed by : [address] [address] AST 24 10 - 45 Units/L [facility] Comment:Testing performed by : [address] [address] Blood 12/31/2024 2:16 PM SAT ACT INSTRUCTOR 12/31/2024 2:24 PM SAT ACT INSTRUCTOR Lesley DE [facility] LAB BLOOD ORDERABLES Final Resu lt [facility] [address] [facility] [place] [address] from Last 3 Months Insurance [facility] Care Teams Sr. Strategic Sourcing Manager Relationship Specialty Start Date End Date Tammi Menon APRN [address] [place] [address] PCP - General Family Medicine 12/31/24
--- OUTSIDE RECORDS SUMMARY | 2025-03-03 20:36 | XMS_ITS | Data Portability ---
Author Organization [facility] Address [address] [place] [address] Care Team Providers Care Vba Developer Name Role Phone CARLOS ESTRADA Primary Care [...] obstetric , nuchal transluce ncy [address], [facility] [address], [place], [address], 03/03/2025 15:59:48 US, obstetric , transvagi nal [address], [facility] [address], [place], [address], 01/27/2025 22:04:56 Medication Orders sertralin e 50 mg tablet 2024 025 [facility] [address], [address] [employer] , [place], [address], 03/02/2025 13:09:57 promethaz ine 25 mg tablet 2024 025 [facility] [address], [address] [employer] , [place], [address], 03/02/2025 13:26:21 Fioricet 50 mg-300 mg-40 mg capsule 2024 025 [email or web address] [facility] [address], [address] [employer] , [place], [address], 02/05/2025 21:58:45 Patient TargetsNo targets recorded. Patient [...] t Case: [id number] Autho jayshree g Provi mic: Latoya Bradley MD Colle cted: 01/27 1722 Order ing Locat ion: [place] Patho logy Recei sunil: 01/28 0924 First Scree n: Cornelia Trimble , CT Speci men: Normanna kyle Pap - Image d, Cervi x STATE MENT OF ADEQU ACY: Satis facto ry for evalu ation Trans forma tion zone compo nent prese nt ----- ----- ----- ----- ----- ----- ----- ----- ----- ----- ----- ----- ----- ----- ----- ----- ----- ---- FINAL DIAGN OSIS: Negat angel for Intra epith elial Lesnatalie piper or Florecita almanzar (NIL) . Elect mat del castillo by Cornelia Trimble , PJ on 025 at 1058 CDT ----- ----- [...] as clini kentrell rosario nted. Not Available [facility] (Lab) [address], [place], [address], 02/01/2025 12:02:58 01/28/2001/27/2025 TRICH OMONA S VAGIN CATHI (RRNA ) trichomonas vaginalis ribosomal RNA (rrna) Negati ve negati ve Not Available [facility] (Lab) [address], [place], [address], 02/01/2025 12:02:58 01/28/2001/27/2025 CT/GC (JOHN) , THINP REP VIAL chlamydia trachomatis, PCR Negati ve negati ve Not Available [facility] (Lab) [address], [place], [address], 02/01/2025 12:02:59 01/28/20 25 01/27/2025 CT/GC (JOHN) , THINP REP VIAL neisseria gonorrhoeae, PCR Negati ve negati ve Not Available [facility] (Lab) [address] [facility], [place], [address], 02/01/2025 12:02:59 02/20/2002/19/2025 CBC W/DIF F WBC 11.0 10'3/ uL 3.5-10 .5 high Not Available [facility] (Lab) [address] [facility] [facility], [place], [address], 02/20/2025 13:00:55 02/20/20 25 02/19/2025 CBC W/DIF F RBC 4.38 10'6/ uL (based on docume nted legal sex) 3.80-5 .20 Not Available [facility] (Lab) [address] [facility] [facility], [place], [address], 02/20/2025 13:00:55 02/20/20 25 02/19/2025 CBC W/DIF F HGB 11.7 g/dL (based on docume nted legal sex) 11.6-1 5.4 Not Available [facility] (Lab) [address] [facility] [facility], [place], [address], 02/20/2025 13:00:55 02/20/20 25 02/19/2025 CBC W/DIF F HCT 36.4 % (based on docume nted legal sex) 34.0-4 5.0 Not Available [facility] (Lab) [address] [facility] [facility], [place], [address], 02/20/2025 13:00:55 02/20/20 25 02/19/2025 CBC W/DIF F MCV 83.1 fL 80.0-9 9.0 Not Available [facility] (Lab) [address] [facility] [facility], [place], [address], 02/20/2025 13:00:55 02/20/20 25 02/19/2025 CBC W/DIF F MCH 26.7 pg 27.0-3 4.0 low Not Available [facility] (Lab) [address] [facility] [facility], [place], [address], 02/20/2025 13:00:55 02/20/20 25 02/19/2025 CBC W/DIF F MCHC 32.1 g/dL 32.0-3 5.5 Not Available [facility] (Lab) [address] [facility] [facility], [place], [address], 02/20/2025 13:00:55 02/20/20 25 02/19/2025 CBC W/DIF F RDW 12.6 % 11.0-1 5.0 Not Available [facility] (Lab) [address] [facility] [facility], [place], [address], 02/20/2025 13:00:55 02/20/20 25 02/19/2025 CBC W/DIF F plt 350 10'3/ uL 150-40 0 Not Available [facility] (Lab) [address] [facility] [facility], [place], [address], 02/20/2025 13:00:55 02/20/20 25 02/19/2025 CBC W/DIF F MPV 10.2 fL 8.8-12 .1 Not Available [facility] (Lab) [address] [facility] [facility], [place], [address], 02/20/2025 13:00:55 02/20/20 25 02/19/2025 CBC W/DIF F neutrophils 72.9 % 34.0-7 3.0 Not Available [facility] (Lab) [address] [place], [address], 02/20/2025 13:00:55 02/20/20 25 02/19/2025 CBC W/DIF F lymphocytes 17.8 % 15.0-5 0.0 Not Available [facility] (Lab) [address] [facility] [facility], [place], [address], 02/20/2025 13:00:55 02/20/20 25 02/19/2025 CBC W/DIF F monocytes 7.5 % 1.0-15 .0 Not Available [facility] (Lab) [address] [facility] [facility], [place], [address], 02/20/2025 13:00:55 02/20/20 25 02/19/2025 CBC W/DIF F eosinophils 1.1 % 0.0-8. 0 Not Available [facility] (Lab) [address] [facility] [facility], [place], [address], 02/20/2025 13:00:55 02/20/20 25 02/19/2025 CBC W/DIF F basophils 0.4 % 0.0-2. 0 Not Available [facility] (Lab) [address] [facility] [facility], [place], [address], 02/20/2025 13:00:55 02/20/2002/19/2025 CBC W/DIF F immature granulocytes 0.3 % no define d refere nce range Immat ure Granu locyt es (IG) repre sents autom ated enume ratio n of Metam yeloc ytes, Myelo cytes and Promy elocy oni when IG is < 5%. Blast s are not inclu ded in IG and repor greg separ ately if prese nt. Not Available [facility] (Lab) [address] [facility] [facility], [place], [address], 02/20/2025 13:00:55 02/20/20 25 02/19/2025 CBC W/DIF F absolute neutrophils 8.0 10'3/ uL 1.5-8. 0 Not Available [facility] (Lab) [address] [facility], [place], [address], 02/20/2025 13:00:55 02/20/20 25 02/19/2025 CBC W/DIF F absolute lymphocytes 2.0 10'3/ uL 1.0-4. 0 Not Available [facility] (Lab) [address] [facility], [place], [address], 02/20/2025 13:00:55 02/20/20 25 02/19/2025 CBC W/DIF F absolute monocytes 0.8 10'3/ uL 0.2-1. 0 Not Available [facility] (Lab) [address] [facility], [place], [address], 02/20/2025 13:00:55 02/20/20 25 02/19/2025 CBC W/DIF F absolute eosinophils 0.1 10'3/ uL 0.0-0. 6 Not Available [facility] (Lab) [address] [facility], [place], [address], 02/20/2025 13:00:55 02/20/20 25 02/19/2025 CBC W/DIF F absolute basophils 0.0 10'3/ uL 0.0-0. 3 Not Available [facility] (Lab) [address] [facility], [place], [address], 02/20/2025 13:00:55 02/20/20 25 02/19/2025 CBC W/DIF F absolute immature granulocytes 0.0 10'3/ uL 0.00-0 .10 Refer ence range s for nonbi nary/ inter sex or unspe cifie d gende r patie nts have not been estab lishe d. Pleas e refer to the follo wing table for range s estab lishe d for cisge nder patie nts and evalu ate in the clini gonsalo silke xt of the indiv idual patie nt: https ://kira wright book. nm.or g/gen derx Not Available [facility] (Lab) [address] [facility], [place], [address], 02/20/2025 13:00:55 02/20/20 25 02/19/2025 HEPAT ITIS B SURFA CE ANTIG EN hepatitis B surface antigen Non-re active non-re active This assay was perfo rmed using [employer] ratio n reage nts and test kits. Value s obtai forrest with other assay metho ds or kits canno t be used inter chung eably . Not Available [facility] (Lab) [address] [facility] [facility], [place], [address], 02/20/2025 13:00:55 02/20/20 25 02/19/2025 HIV 1/2 ANTIG EN/AN TIBOD Y, REFLE X CONFI RMATI ON HIV antigen/anti body Nonrea ctive nonrea ctive HIV-1 antig en and HIV-1 /HIV- 2 antib odies were not detec greg. No labor atory evide nce of HIV infec tion. Not Available [facility] (Lab) [address] [facility] [facility], [place], [address], 02/20/2025 13:00:56 02/20/20 25 02/19/2025 HEPAT ITIS C ANTIB CLARIBEL SCREE N, REFLE X TO CONFI RMATI ON hepatitis C antibody Non-re active non-re active Antib odies to HCV Not Detec greg, does not exclu de the possi bilit y of expos ure to HCV. Not Available [facility] (Lab) [address] [facility] [facility], [place], [address], 02/20/2025 13:00:56 02/20/2002/19/2025 T4 FREE T4, free 0.92 NG/dL 0.60-1 .40 This assay is susce ptibl e to inter feren ce from high level s of bioti n which may false ly eleva te resul ts. Pleas e corre late with clini gonsalo findi ngs. Not Available [facility] (Lab) [address] [facility] [facility], [place], [address], 02/20/2025 13:00:56 02/20/20 25 02/19/2025 TSH, REFLE X FREE T4 TSH 0.03 uIU/m L 0.30-5 .33 low Not Available [facility] (Lab) [address] [facility] [facility], [place], [address], 02/20/2025 13:00:56 02/20/20 25 02/19/2025 RUBEL LA IGG ANTIB CLARIBEL, QUANT rubella antibodies, IgG Reacti ve reacti ve Not Available [facility] (Lab) [address] [facility] [facility], [place], [address], 02/20/2025 13:00:57 02/20/20 25 02/19/2025 RUBEL LA IGG ANTIB CLARIBEL, QUANT rubella antibodies, IgG quant 35.4 IU/mL >=10 Non-r eacti ve (Non- Immun e) <10 IU/mL React angel (Immu ne) > or = 10 IU/mL Not Available [facility] (Lab) [address] [facility] [facility], [place], [address], 02/20/2025 13:00:57 02/20/20 25 02/19/2025 TYPE/ RH/SC REEN ABO/Rh type B POS Not Available [facility] (Lab) [address], [place], [address], 02/20/2025 13:00:57 02/20/20 25 02/19/2025 TYPE/ RH/SC REEN antibody screen NEG Not Available [facility] (Lab) [address], [place], [address], 02/20/2025 13:00:57 02/20/20 25 02/19/2025 TYPE/ RH/SC REEN exp date 2024 23:59 Not Available [facility] (Lab) [address], [place], [address], 02/20/2025 13:00:57 02/20/20 25 02/19/2025 HEMOG LOBIN A1C hemoglobin A1C 5.1 % 4.0-5. 6 The Ameri can Diabe oni Assoc iatio n recom mends that a prima ry goal of gustabo forrest d be a HBA1C of < 7% and that physi cians lon del castillo reeva luate the treat ment regim en in patie nts with HBA1C value s consi stent ly > 8%. <5.7% Inna l 5.7 - 6.4% Incre ased risk for diabe oni >=6.5 % Diagn ostic of diabe oni <7.0% Goal of thera py >8.0% Actio n sugge sted Not Available [facility] (Lab) [address] [facility] [facility], [place], [address], 02/20/2025 13:00:57 02/20/20 25 02/19/2025 RPR SCREE N, REFLE X TITER /CONF IRMAT ION RPR qualitative Nonrea ctive nonrea ctive Not Available [facility] (Lab) [address] [facility], [place], [address], 02/20/2025 13:00:58 01/15/20 25 01/14/2025 US, pelvi s No observ ation record ed. [email or web address] [facility] [address], [place], [address], 01/14/2025 22:26:54 01/15/20 25 01/14/2025 US, obste tric, trans vagin al No observ ation record ed. [email or web address] [facility] [address], [place], [address], 01/14/2025 13:55:51 01/28/20 25 01/27/2025 US, obste tric, trans vagin al No observ ation record ed. [email or web address] [facility] [address], [place], [address], 01/27/2025 18:32:06 01/28/20 25 01/27/2025 US, obste tric, trans vagin al No observ ation record ed. [email or web address] [address], [place], [address], 01/27/2025 22:14:08 02/20/20 25 02/19/2025 lab* No observ ation record ed. [email or web address] [facility] [address], [place], [address], 02/22/2025 23:13:52 02/27/20 25 02/26/2025 US, obste tric, limit ed No observ ation record ed. [address] [facility], [place], [address], 03/01/2025 11:32:53 02/27/20 25 02/26/2025 US, obste tric, limit ed No observ ation record ed. [address] [address], [place], [address], 03/01/2025 11:33:10 03/02/20 25 03/02/2025 US, obste tric, nucha l trans lucen cy No observ ation record ed. [email or web address] [facility] [address], [place], [address], 03/02/2025 13:35:30 03/02/20 25 03/02/2025 US, obste tric, nucha l trans lucen cy No observ ation record ed. [email or web address] [address], [place], [address], 03/03/2025 14:08:39 Result Notes None recorded. Problems Name Problem SNOMED Code Status Onset Date Resolution Date Notes Provider Name and Address Organization Details Recorded Time Gestatio n period, 37 weeks [id number] Completed 201907/05/2021 37 weeks gestatio n of pregnanc y;Record ed Elsewher e: No Locat ion: Jaelyn castillo [facility] S ource: EHR Customer Support Executive yvrose: N Practi ce ID: [email or web address] Gigi lable Time: 09:00:00 AM Karina Burroughs [facility] [place] - [facility] 10:15:[address] Concept Completed 201907/05/2021 Matern care for abnlt fetl hrt rate or rhym, 3rd tri, unsp;Rec orded Elsewher e: No Locat ion: [facility] S ource: EHR Customer Support Executive yvrose: N Practi ce ID: [email or web address] Gigi lable Time: 08:45:00 AM Karina ramos, [facility] 1 10:15:29 Gestatio nal diabetes mellitus 12354464 Completed 201907/05/2021 Gestatio nal diabetes mellitus in pregnanc y, diet controll ed;Recor ded Elsewher e: No Locat ion: [facility] S ource: EHR Customer Support Executive yvrose: N Practi ce ID: [email or web address] Gigi lable Time: 11:45:00 AM Karina ramos, [facility] 1 10:15:25 Gestatio n period, 38 weeks 12895830 Completed 201907/05/2021 38 weeks gestatio n of pregnanc y;Record ed Elsewher e: No Locat ion: [facility] S ource: EHR Customer Support Executive yvrose: N Practi ce ID: [email or web address] Gigi lable Time: 11:30:00 AM Karina ramos, [facility] 1 10:15:13 Normal pregnanc y in multigra jessy [id number] 77242 Completed 201907/05/2021 Encounte r for supervis ion of other normal pregnanc y, 3rd trimeste r;Record ed Elsewher e: No Locat ion: [facility] S ource: EHR Customer Support Executive yvrose: N Practi ce ID: [id number] Gigi lable Time: 10:45:00 AM Karina ramos, [facility] 1 10:15:27 Amenorrh ea 61187985 Completed 202007/10/2021 Tammi ramos, [facility] 13:08:35 Pregnanc y 52780802 Completed 202003/29/2022 Karina ramos, [facility] 4 11:00:49 Hypereme sis 676755752 Completed phenerga n now prn Asia ramos [facility] 2 16:43:51 Anxiety in pregnanc y 1377514358 9109 Completed will continue to monitor Asia ramos, [facility] 2 16:43:51 Past pregnanc y history of gestatio nal diabetes mellitus 695421164 Completed Early 1 hr GTT @ 20wks 11/03 APPT Asia ramos, [facility] 2 16:43:51 Spinal muscular atrophy 7869870 Completed Carrier - Not in contact with FOB. Asia ramos, [facility] 2 16:43:51 Pregnanc y 39536976 Completed 202304/22/2024 Karina ramos, [facility] 4 11:00:49 Anxiety 56932103 Completed prozac Karina ramos, [facility] 4 11:00:46 Nausea 387154142 Completed d/c zofran pump 11/08 per pt request Karina ramos, [facility] 4 11:00:46 Postpart um hemorrha ge [id number] Completed 2017 with d&c Karina ramos, [facility] 4 11:00:46 Headache 12544802 Active 2023 Karina ramos [facility] 5 16:19:28 Pregnanc y 14692799 Active 2023 Karina ramos, [facility] 5 16:19:28 Uncompli cated moderate persiste nt asthma 926081099 Active 2024 albutero hugo lopesn Shawn Bradley MD [address], [place], [address], [facility] 5 13:08:36 Anxiety 65848474 Active 2024 sertrali ne started 03/02/25 Shawn Bradley MD [address], [place], [address], [facility] 5 13:09:23 Nausea and vomiting 65908188 Active 2024 Shawn Bradley MD [address], [place], [address], [facility] 5 13:20:27 Notes:Order faxed to [facility] 08/10 for PICC line, and home health already caring for ptHilda Gilbert RN at [phone] Problem Notes None recorded. Procedures Surgical History Date Name Laterality Status Provider Name and Address Organization Details Recorded Time 5 Date of Last Pap Smear completed Karina Burroughs [facility] 01/28/2025 11:19:42 4 Nexplanon Removal completed Shawn Bradley MD [address], [place], [address], [facility] 08/05/2024 15:09:58 4 Control Implant Insertion completed Anju Mcnamara CNM [address], [place], [address], [facility] 05/08/2024 17:59:34 8 Dilation and Curettage completed Karina Burroughs [facility] 07/05/2021 10:17:50 Imaging Results Imaging Date Name Status LastModified by Organization Details LastModified Time 01/14/2025 US, pelvis completed [email or web address] [address] [address], [place], [address], 01/14/2025 22:26:54 01/14/2025 US, obstetric, transvaginal completed [email or web address] [place] [address], [place], [address], 01/14/2025 13:55:51 01/27/2025 US, obstetric, transvaginal completed [email or web address] [place] [address], [place], [address], 01/27/2025 18:32:06 01/27/2025 US, obstetric, transvaginal completed [email or web address] [address], [place], [address], 01/27/2025 22:14:08 02/19/2025 lab* completed [email or web address], [address], 02/22/2025 23:13:52 02/26/2025 US, obstetric, limited completed [address], [address], 03/01/2025 11:32:53 02/26/2025 US, obstetric, limited completed [address], [address], 03/01/2025 11:33:10 03/02/2025 US, obstetric, nuchal translucency completed [email or web address] [place] [address], [place], [address], 03/02/2025 13:35:30 03/02/2025 US, obstetric, nuchal translucency completed [email or web address] [address], [place], [address], 03/03/2025 14:08:39 Procedure Notes None recorded. Medical Equipment None Reported. Allergies Allergen ID Allergen Name Allergen Category Reaction Reaction Severity Criticality Documentation Date Start Date Code Code System Note Provider Name and Address Organization Details Recorded Time 52374 terbutali ne medicatio n anaphylax is Not available Not available 01/27/20252021 96130 RxNorm Karina Burroughs [facility] 16:19:27 Medications Name Sig Start [...] ed Elsewher e: Yes Loca tion: [facility] M odify By: [email or web address] Encounte r DateTime [...] n (supplie d by office) insert lot [id number] Exp 01/2026 Not Available Not Available Not Available 28 mg iron-800 mcg tablet 07/05 completed Prescrib tej Deleon e: Yes Loca tion: [facility] M odify By: [email or web address] barrera DateTime : [...] Updated DateTime 01/27/2025 162.56 cm 27.8 kg/m2 63626.96 g 115 mm[Hg] 74 mm[Hg] Karina Burroughs [facility] 5 16:19:09 Date Recorded Body height Body mass index (BMI) Body weight Systolic blood pressure Diastolic blood pressure Provider Name and Address Organization Details Last Updated DateTime 02/04/2025 162.56 cm 28.2 kg/m2 64496.15 g 113 mm[Hg] 72 mm[Hg] Melyssa Santo [facility] 5 10:24:20 Date Recorded Body height Body mass index (BMI) Body weight Systolic blood pressure Diastolic blood pressure Provider Name and Address Organization Details Last Updated DateTime 03/02/2025 162.56 cm 27.1 kg/m2 32178.59 g 116 mm[Hg] 81 mm[Hg] Melyssa Santo [facility] 12:59:17 Social History Question Answer Notes LastModified by Organizat ion Details LastModified Time Tobacco Smoking Status Former Smoker Karina Heike ramos, [facility] 07/05/2021 09:06:21 What Is Your Level Of Alcohol Consumption? Occasional [email or web address] Information not available 07/05/2021 If You Are , What Was Your Level Of Alcohol Consumption Prior To ? None [email or web address] Information not available 07/05/2021 Are You Blind Or Do You Have Difficulty Seeing? No [email or web address] Information not available 07/05/2021 What Is Your Level Of Caffeine Consumption? Heavy [email or web address] Information not available 07/05/2021 In The 14 Days Before Symptom Onset, Have You Had Close Contact With A Laboratory-confir med COVID-19 While That Case Was Ill? No [email or web address] Information not available 07/05/2021 In The 14 Days Before Symptom Onset, Have You Had Close Contact With A Person Who Is Under Investigation For COVID-19 While That Person Was Ill? No [email or web address] Information not available 07/05/2021 Have You Been To An Area Known To Be High Risk For COVID-19? No [email or web address] Information not available 07/05/2021 Are You Deaf Or Do You Have Serious Difficulty Hearing? No [email or web address] Information not available 07/05/2021 What Type Of Diet Are You Following? REGULAR [email or web address] Information not available 07/05/2021 Which Illicit Or Recreational Drugs Have You Used? Marijuana [email or web address] Information not available 07/05/2021 Do You Or Have You Ever Used E-cigarettes Or Vape? Current User Of Electronic Cigarettes [email or web address] Information not available 07/05/2021 Have You Ever Been Counseled For Unhealthy Alcohol Use? No [email or web address] Information not available 07/05/2021 Do You Use Your Seat Belt Or Car Seat Routinely? Yes [email or web address] Information not available 07/05/2021 Do You Have Smoke And Carbon Monoxide Detectors In Your Home? Yes [email or web address] Information not available 07/05/2021 Do You Or Have You Ever Used Smokeless Tobacco? Never Used Smokeless Tobacco Information not available 07/05/2021 Do You Feel Stressed (tense, Restless, Nervous, Or Anxious, Or Unable To Sleep At Night)? [id number] [email or web address] Information not available 07/05/2021 Do You Use Any Illicit Or Recreational Drugs? Yes [email or web address] Information not available 07/05/2021 Do You Use Sunscreen Routinely? Yes [email or web address] Information not available 07/05/2021 Has Tobacco Cessation Counseling Been Provided? No Information not available 07/05/2021 Have You Used IV Drugs? No [email or web address] Information not available 07/05/2021 Do You Or Have You Ever Used Any Other Forms Of Tobacco Or Nicotine? Yes [email or web address] Information not available 07/05/2021 Sex: Unknown Functional Status Question Answer Note LastModified by Organizat ion Details LastModified Time Do you have difficulty walking or climbing stairs? No [email or web address] Information not available 12/06/2021 Are you able to walk? YESWOREST [email or web address] Information not available 07/05/2021 Are you able to care for yourself? Yes Information not available 12/06/2021 Do you have difficulty dressing or bathing? No [email or web address] Information not available 12/06/2021 What is your exercise level? Occasional [email or web address] Information not available 07/05/2021 Mental Status None recorded. Family History Relationship Description Onset Age of this Age Resolved Age Notes LastModified by Organization Details LastModified Time Father No current problems or disability [email or web address] Not available 05/2021 09:06:31 Mother No current problems or disability [email or web address] Not available 05/2021 09:06:31 Medical History Condition [...] SNOMED-CT Code Diagnosis ICD10 Code Diagnosis Note [id number] [facility] [address] [address] 07/05/2021 09:58:05 07/05/2021 11:16:35 Pityriasis versicolor 53228421 B36.0 also wash with selsum blue shampoo Vaginitis 48500193 N76.0 Nausea 716658565 R11.0 Contracept ion care management 205258611 Z30.9 09935 Betsey Joya CNM [facility] [address] [address] 08/02/2021 10:30:44 08/04/2021 10:07:43 Severe hyperemesis gravidarum 525116912 O21.1 Pt has not held anything down for more than 24 hours. Sent to ER for hydration and evaluation . We have discussed dietary precaution s. Recommend very small frequent meals. Avoid greasy, spicy or trigger foods. I do believe she may benefit from home health for fluids and IV antiemetic s. [id number] Anju Mcnamara [facility] [address],[place] [address] 08/08/2021 10:22:11 08/08/2021 13:42:05 Depressive disorder 36371312 F32.A in an emergency mercy info given and kettler reminder, if increased thoughts or plan to [facility], pt agrees, continue counseling , will try lexapro once can keep down fluids, se reviewed Gynecologi c examination 19320429 Z01.419 Z11.3 Z11.8 Amenorrhea 16607395 N91. 2 plan NOB and first look Nausea and vomiting 1693 2000 R11.2 unable to leave urine, unable at this time to go to LD, encouraged to go to LD for hydration, working on home health services, [id number] Shawn Bradley MD [facility] [address],[place] [address] 08/08/2021 10:21:08 08/08/2021 10:53:33 Routine care 259543414 Z34.91 Z3A.08 [id number] Anju Mcnamara [facility] [address],[place] [address] 09/13/2021 14:51:52 09/14/2021 13:44:23 test positive 570678874 Z32.01 Routine an tenatal care 447125427 Z34.91 [id number] Shawn Bradley MD [facility] [address],[place] [address] 09/13/2021 15:35:32 09/13/2021 16:26:27 screening 526281743 Z36.82 [id number] Betsey Joya [facility] [address],[place] [address] 10/09/2021 12:26:15 10/09/2021 17:39:00 Urinary symptoms 808718225 R39.9 Fatigue 49931271 R53.83 Venereal d isease screening 905799541 Z11.3 [id number] Anju Mcnamara [facility] [address],[place] [address] 10/16/2021 11:57:23 10/16/2021 12:48:11 Routine care 315755891 Z34.91 [id number] [facility] [address],[place] [address] 11/03/2021 11:32:21 11/03/2021 13:52:13 Routine care 478043688 Z34.91 [id number] Shawn Bradley MD [facility] [address],[place] [address] 11/03/2021 11:31:37 11/03/2021 12:34:34 screening for malformation 465746810 Z36.3 [id number] Anju Mcnamara [facility] [address],[place] [address] 12/06/2021 14:46:58 12/06/2021 16:07:59 Routine care 671425242 Z34.91 Iron defic iency anemia 42444326 D50.9 Anxiety 04273419 F41.9 [id number] Shawn Bradley MD [facility] [address],[place] [address] 12/06/2021 14:46:10 12/06/2021 15:18:30 condition affecting obstetrical care of mother 867161611 O35.8XX0 Z3A.25 [id number] Anju Mcnamara [facility] [address],[place] [address] 12/22/2021 11:04:34 12/22/2021 11:32:13 Routine care 902963777 Z34.91 [id number] Shawn Bradley MD [facility] [address],[place] [address] 01/03/2022 14:21:04 01/03/2022 15:48:26 Uterine size for dates discrepancy 347421947 O26.843 Z3A.29 [id number] Anju Mcnamara [facility] [address],[place] [address] 01/03/2022 14:21:33 01/03/2022 15:13:41 Routine care 515013516 Z34.91 [id number] Anju Mcnamara [facility] [address],[place] [address] 01/17/2022 16:53:11 01/17/2022 17:24:14 Routine care 944234568 Z34.91 Persistent cough 7233065 02 R05.3 [id number] Betsey Joya [facility] [address],[place] [address] 02/06/2022 09:22:49 02/06/2022 09:55:25 Routine care 846359004 Z34.93 [id number] Shawn Bradley MD [facility] [address],[place] [address] 02/13/2022 14:43:16 02/13/2022 15:26:49 Poor growth affecting management 342235302 O36.5930 Z3A.35 83606 Anju Mcnamara [facility] [address],[place] [address] 02/16/2022 15:13:14 02/16/2022 15:58:27 Routine care 566171762 Z34.91 [id number] Anju Mcnamara [facility] [address],[place] [address] 03/02/2022 15:02:03 03/02/2022 15:28:58 Routine care 968898167 Z34.91 [id number] BOLA Miller [facility] [address],[place] [address] 03/27/2022 10:37:37 03/27/2022 11:14:18 Mixed anxiety and depressive disorder 797447643 F41.8 Chest pain 85302934 R07. 9 She has a hx of [...] treatment for anxiety/de pression.Bianca peng has a escort car driver that will take her to [facility] (vitals are WNL, no acute distress noted).She has no thoughts of harming herself or others.She will call the office to schedule an appointmen t to be seen after ED evaluation . We discussed at that time can start therapy for depression /anxiety. RTC after cleared by ED Time spent with the patient was 20 minutes [id number] Shawn Bradley MD [facility] [address],[place] [address] 04/16/2022 15:11:58 04/16/2022 17:11:09 Mixed anxiety and depressive disorder 166332555 F41.8 this patient is a 22-year-ol d [...] ce. More than 50% was counseling . [id number] Shawn Bradley MD [facility] [address],[place] [address] 04/16/2022 16:43:28 04/16/2022 17:34:26 Abnormal uterine bleeding 8142698779 9100 N93.9 [id number] BOLA Miller [facility] [address],[place] [address] 06/19/2022 17:24:32 06/19/2022 18:03:44 Abnormal uterine bleeding 7735858587 9100 N93.9 We discussed likely spotting is [...] of plan of care. Pain in pelvis 84812968 R10.2 Contracept ion care management 490497154 Z30.9 Irregular periods 796122 07 N92.6 Venereal d isease screening 370119227 Z11.3 Anxiety 81892255 F41.9 [id number] Shawn Bradley MD [facility] [address],[place] [address] 10/02/2023 13:44:25 10/02/2023 14:07:54 screening 808249910 Z36.82 Z36.87 Z3A.11 [id number] Anju Mcnamara CNM [facility] [address] [address] 10/02/2023 13:46:45 10/02/2023 14:50:25 Amenorrhea 28741742 N91.2 plan NOB and first look NIPT and labs todaywants tubal ligation after delivery Gynecologi c examination 98283977 Z01.419 Z11.3 Z11.8 Nausea and vomiting 1693 2000 R11.2 [id number] Anju Mcnamara [facility] [address],[place] [address] 11/01/2023 11:17:59 11/01/2023 13:01:44 Gestation period, 16 weeks 70655719 Z3A.16 Anxiety 57648366 F41.9 [id number] Shawn Bradley MD [facility] [address],[place] [address] 11/27/2023 14:04:37 11/27/2023 15:16:15 screening for malformation 465897450 Z36.3 Z3A.19 [id number] Anju Mcnamara [facility] [address],[place] [address] 11/27/2023 14:13:33 11/27/2023 15:31:00 Routine care 020656289 Z34.91 [id number] Anju Mcnamara [facility] [address],[place] [address] 12/25/2023 14:51:56 12/25/2023 15:52:45 Routine care 238406273 Z34.91 [id number] Anju Mcnamara [facility] [address],[place] [address] 02/14/2024 14:13:14 02/14/2024 16:07:12 Routine care 004110659 Z34.91 [id number] Anju Mcnamara [facility] [address],[place] [address] 03/27/2024 11:47:21 03/27/2024 12:30:07 Routine care 702817444 Z34.91 [id number] Anju Mcnamara [facility] [address],[place] [address] 05/08/2024 14:54:41 05/11/2024 09:00:41 Screening procedure 59351413 Z13.9 Implantati on of subcutaneous contraceptive 004060355 Z30.46 reviewed se risks and benefits, bandage until skin closes, pressure bandage x 24 hourswill schedule bilateral salpingect kateryna with dr. bradley care 31402039 8 Z39.2 continue multivitam in Sterilizat ion requested 086792381 Z30.2 [id number] MD Shun Galarza [address],[place] [address] 08/05/2024 13:57:53 08/05/2024 15:11:54 Contraception care management 648310180 Z30.9 Nexplanon removed without complicati ons. She tolerated well. [id number] MD Shun Galarza [address],[place] [address] 01/14/2025 11:51:17 01/14/2025 12:53:24 Uncertain viability of 676123102 Z3A.01 [id number] MD Shun Galarza [address],[place] [address] 01/14/2025 11:51:38 01/15/2025 09:38:25 Pain in pelvis 49822221 R10.2 25-year-ol d female presents for ER [...] care. She will return in 2 weeks. [id number] MD Shun Galarza [address],[place] [address] 01/27/2025 14:42:15 01/27/2025 15:35:58 Abdominal pain in 441489089 O99.891 Z3A.01 [id number] MD Shun Galarza [address],[place] [address] 01/27/2025 14:55:24 01/27/2025 16:41:41 Amenorrhea 03304044 N91.2 Z32.01 this patient is a 25-year-ol [...] begin routine care at her next visit. [id number] Shawn Bradley MD [facility] [address],[place] [address] 02/04/2025 10:09:23 02/04/2025 10:48:21 Headache 99278071 R51.9 Nausea and vomiting 1693 2000 R11.2 [...] to labor and delivery for IV fluids. [id number] Shawn Bradley MD [facility] [address],[place] [address] 03/02/2025 12:17:19 03/02/2025 12:53:50 screening 178341006 Z36.82 Z3A.11 [id number] Shawn Bradley MD [facility] [address],[place] [address] 03/02/2025 12:17:40 03/02/2025 15:40:54 Anxiety 04291443 F41.9 care status 24 1458222 Z34.81 Health Concerns Section Related Observation LastModified by Organization Detai ls LastModified Time None Recorded Concern Status LastModified by Organization Details LastModified Time None Recorded Advance Directives Directive None Recorded Payers Encounter Date Sequence Insurance Name Policy Number Policy Roberts Covered Member ID Roberts Member ID Guarantor Name 01/27/2025 1 [facility] [facility] [facility] (MEDICAID HMO) [id number] Yuni Mejia [id number] Yuni Mejia 01/27/2025 1 [facility] [facility] (MEDICAID HMO) [id number] 0003 Yuni Mejia [id number] Yuni Mejia 02/04/2025 1 [facility] (MEDICAID HMO) [id number] Yuni Mejia [id number] Yuni Mejia 03/02/2025 1 [facility] (MEDICAID HMO) [id number] 0003 Yuni Mejia [id number] Yuni Mejia 03/02/2025 1 [facility] (MEDICAID HMO) [id number] 0003 Yuni Mejia [id number] Yuni Mejia Notes Date Note Type Note Provider Name and Address Organization Details Recorded Time 01/27/2025 text/html this patient is a 25-year-old female who presents for amenorrhea. She is a positive test. Ultrasound revealed a 1st trimester gestation. Patient has no complaints. We talked about early care. Talked about genetic screening. We talked about her ultrasound results. We talked about the 12 week ultrasound that has genetic screening components. She was given recommendations on exercise, diet, loyh-buc-nabygnr medications. We reviewed her obstetric history. We reviewed her medical history. We reviewed her social history. She will begin routine care at her next visit. Shawn Bradley MD [address], [place], [address], [facility] 01/27/2025 16:36:44 02/04/2025 text/html 25-year-old fema le with severe nausea, 8 weeks gestation, hyperemesis gravidarum. Patient states Norah is not working anymore. She is unable to keep liquids down. We talked about various treatment options in detail. Spent over 20 minutes aqaz-ve-fnir with the patient and on her care in total. We agreed to send to labor and delivery for IV fluids. Shawn Bradley MD [address], [place], [address], [facility] 02/04/2025 10:46:36 OBGyn Episode Ob Episode Information Episode Created Date Number of Fetuses Patient Bloodtype Patient rh Status Prepregnancy Weight lbs Domestic Partner Domestic Partner Phone Father Name Phlebotomist Prn Status 03/14/20 20 1 CLOSED Fetus Data [...] Domestic Partner Domestic Partner Phone Father Name Phlebotomist Prn Status 07/05/20 21 1 CLOSED Fetus Data First Name Last Name Admitted to NICU Weight (g) Sex Living Outcome Pediatric Complications Fetus ID Race Codes Race Delivery Type , Spontane ous 98832 Jun Calculation Initial Jun Date Initial Exam [...] Domestic Partner Domestic Partner Phone Father Name Phlebotomist Prn Status 09/13/20 21 1 B Positive 103 diontre silva CLOSED Fetus Data First Name Last Name Admitted to NICU Weight (g) Sex Living Outcome Pediatric Complications Fetus ID Race Codes Race Delivery Type 3316.89 15 F true Full Term terminal meconium 50478 Vaginal Delivery Problems Problem Notes EIF in [place] noted03/05 PIH WNL, UC WNL Problem Name Start Date End Date Resolution Snomed Code Not e Spinal muscular atrophy 3006547 Carrier - Not i n contact with FOB. Past history of gestational diabetes mellitus 262960341 Early 1 hr GTT @ 20wks 11/03 APPT Hyperemesis 069509783 phenerga n now prn Anxiety in 692996347 68691 will continue to monitor Jun Calculation Initial [...] Date Ultra Sound Latest Days Gestation 0 [email or web address] 09/14/2021 03/16/20 22 0 Pre- Flowsheet Flowsheet [...] Weight in lbs Pre/Post Dialysis Refused Weight 110.500035584434 BP Diastolic BP Location Tested BP Systolic [...] Weight in lbs Pre/Post Dialysis Refused Weight 119.285630931927 BP Diastolic BP Location Tested BP Systolic [...] Weight in lbs Pre/Post Dialysis Refused Weight 120.407544803385 BP Diastolic BP Location Tested BP Systolic [...] Weight in lbs Pre/Post Dialysis Refused Weight 124.126457689507 BP Diastolic BP Location Tested BP Systolic [...] Weight in lbs Pre/Post Dialysis Refused Weight 137.923627841025 BP Diastolic BP Location Tested BP Systolic [...] Weight in lbs Pre/Post Dialysis Refused Weight 145.4236462519 BP Diastolic BP Location Tested BP Systolic [...] Weight in lbs Pre/Post Dialysis Refused Weight 152.263544725251 BP Diastolic BP Location Tested BP Systolic [...] Weight in lbs Pre/Post Dialysis Refused Weight 150.969998646035 BP Diastolic BP Location Tested BP Systolic [...] Weight in lbs Pre/Post Dialysis Refused Weight 157.619037517475 BP Diastolic BP Location Tested BP Systolic [...] Weight in lbs Pre/Post Dialysis Refused Weight 158.795604554751 BP Diastolic BP Location Tested BP Systolic [...] Weight in lbs Pre/Post Dialysis Refused Weight 163.969218598018 BP Diastolic BP Location Tested BP Systolic [...] Weight in lbs Pre/Post Dialysis Refused Weight 134.371603095002 BP Diastolic BP Location Tested BP Systolic [...] At Estimated Date of Delivery false Thalassemia (Cuban, Georgian, Mediterranean, Or Background): MCV < 80 false Neural Tube Defect (Meningom yelocele, Spina Bifida, Or Anencephaly) false Congenital Heart Defect false Down Syndrome false Erick-Sachs (eg, Amish, Cajun, American-[place]) f alse Lizzette Disease false Sickle Cell Disease Or Trait () false Hemophilia Or Other Blood Disorders false Muscular Dystrophy false Cystic Fibrosis false Piute's Chorea false Intellectual Disability/Autism false If Yes, [...] Domestic Partner Domestic Partner Phone Father Name Phlebotomist Prn Status 07/05/20 21 1 CLOSED Fetus Data First Name Last Name Admitted to NICU Weight (g) Sex Living Outcome Pediatric Complications Fetus ID Race Codes Race Delivery Type 3175.14 4 F Full Term 20509 Vaginal Delivery Jun Calculation Initial Jun Date [...] Domestic Partner Domestic Partner Phone Father Name Phlebotomist Prn Status 11/01/19 24 1 B Positive 126 Virgil Wand CLOSED Fetus Data First Name Last Name Admitted to NICU Weight (g) Sex Living Outcome Pediatric Complications Fetus ID Race Codes Race Delivery Type 3401.94 M true Full Term 40059 Vaginal Delivery Problems Problem Notes gallbladder attack/pain - re ferral to Gen Surg Dr. Boles sent 11/08- pt never went because pain stopped Problem Name Start Date End Date Resolution Snomed Code Not e Anxiety 83208291 prozac Nausea 992640804 d/c zofran pump 11/08 per pt request hemorrhage 92715601 hx of 2017 with d&c Jun Calculation [...] Weight in lbs Pre/Post Dialysis Refused Weight 130.948714167216 BP Diastolic BP Location Tested BP Systolic [...] Weight in lbs Pre/Post Dialysis Refused Weight 136.244451437898 BP Diastolic BP Location Tested BP Systolic [...] Weight in lbs Pre/Post Dialysis Refused Weight 144.000457917135 BP Diastolic BP Location Tested BP Systolic [...] Weight in lbs Pre/Post Dialysis Refused Weight 154.604789087107 BP Diastolic BP Location Tested BP Systolic [...] Weight in lbs Pre/Post Dialysis Refused Weight 157.498687527647 BP Diastolic BP Location Tested BP Systolic [...] Sterilization Discharge Date Comments 4 27.2 Anju Mcnamaar KRISTEN 04/11/2024 limited care Discharge Information Feeding Method Contraceptive Method Maternal HG B and HCT Levels Ob Episode Information Episode Created Date Number of Fetuses Patient Bloodtype Patient rh Status Prepregnancy Weight lbs Domestic Partner Domestic Partner Phone Father Name Phlebotomist Prn Status 03/02/20 25 1 B Positive 164 OPEN Fetus Data First Name Last Name Admitted to NICU Weight (g) Sex Living Outcome Pediatric Complications Fetus ID Race Codes Race Delivery Type 27766 Problems Problem Notes Problem Name Start Date End Date Resolution Snomed Code Not e Uncomplicated moderate persistent asthma 03/02/2025 620198484 albuterol prn Nausea and vomiting 03/02/2025 92759314 Anxiety 03/02/2025 89184160 sertralin e started 03/02/25 Jun Calculation Initial [...] Weight in lbs Pre/Post Dialysis Refused Weight 158.921331594995 BP Diastolic BP Location Tested BP Systolic [...]
--- OUTSIDE RECORDS SUMMARY | 2025-03-03 20:36 | XMS_ITS | Continuity of Care Document ---
Author Organization [facility] Address [address] [place] [address] Care Team Providers Care Gift Wrapper Name Role Phone CARLOS ESTRADA Primary Care Provider [phone] Assessment No assessment recorded. Plan of Treatment Reminders Order Date Submit Date Provider Last Modified By Organization Details Last Modified Time Details Appointments OB ROUTINE 2024 08:30A M Anju Mcnamara CNM Not available Not available Not available Lab None recorded. Referral None recorded. Procedures None recorded. Surgeries None recorded. Imaging None recorded. Medication Orders sertralin e 50 mg tablet 2024 05 025 [facility], [address], [place], [address], 03/02/2025 13:09:57 Patient TargetsNo targets recorded. Patient InstructionsNo instructions recorded. Reason for Referral None Reported. Results Created Date Observation Date Name Description Value Unit Range Abnormal Flag Note LastModifiedBy Organization Detail LastModifiedTime 03/02/2003/02/2025 US, obste tric, nucha l trans lucen cy No observ ation record ed. [email or web address] [facility] [address], [place], [address], 03/02/2025 13:35:30 03/02/20 25 03/02/2025 US, obste tric, nucha l trans lucen cy No observ ation record ed. [email or web address] [facility] [address], [place], [address], 03/03/2025 14:08:39 Result Notes None recorded. Problems Name Problem SNOMED Code Status Onset Date Resolution Date Notes Provider Name and Address Organization Details Recorded Time Gestatio n period, 37 weeks 55931739 Completed 201907/05/2021 37 weeks gestatio n of pregnanc y;Record ed Elsewher e: No Locat ion: [facility] S ource: EHR Dieing Out Machine Operator yvrose: N Natalyati ce ID: 0001 Gigi lable Time: 09:00:00 AM Karina ramos [facility] 10:15:[address] Concept Completed 201907/05/2021 Matern care for abnlt fetl hrt rate or rhym, 3rd tri, unsp;Rec orded Elsewher e: No Locat ion: [facility] S ource: EHR Dieing Out Machine Operator yvrose: N Natalyati ce ID: 0001 Gigi lable Time: 08:45:00 AM Karina ramos [facility] 10:15:29 Gestatio nal diabetes mellitus 53459165 Completed 201907/05/2021 Gestatio nal diabetes mellitus in pregnanc y, diet controll ed;Recor ded Elsewher e: No Locat ion: [facility] S ource: EHR Dieing Out Machine Operator yvrose: N Natalyati ce ID: 0001 Gigi lable Time: 11:45:00 AM Karina ramos [facility] 10:15:25 Gestatio n period, 38 weeks 25960658 Completed 201907/05/2021 38 weeks gestatio n of pregnanc y;Record ed Elsewher e: No Locat ion: [facility] S ource: EHR Dieing Out Machine Operator yvrose: N Natalyati ce ID: 0001 Gigi lable Time: 11:30:00 AM Karina ramos [facility] 10:15:13 Normal pregnanc y in multigra jessy [id number] 15809 Completed 201907/05/2021 Encounte r for supervis ion of other normal pregnanc y, 3rd trimeste r;Record ed Elsewher e: No Locat ion: Jaelyn castillo [facility] S ource: EHR Dieing Out Machine Operator yvrose: N Natalyati ce ID: 0001 Gigi lable Time: 10:45:00 AM Karina Burroughs null, [facility] 1 10:15:27 Amenorrh ea 67408498 Completed 202007/10/2021 Tammi Jones null, [facility] 1 13:08:35 Pregnanc y 93778983 Completed 202003/29/2022 Karina Burroughs null, [facility] 4 11:00:49 Hypereme sis 690001549 Completed phenerga n now prn Asia arias [facility], [facility] 2 16:43:51 Anxiety in pregnanc y 5080357871 9109 Completed will continue to monitor Asia Luis arias [facility], [facility] 2 16:43:51 Past pregnanc y history of gestatio nal diabetes mellitus 574598306 Completed Early 1 hr GTT @ 20wks 11/03 APPT Asia Luis arias [facility], [facility] 2 16:43:51 Spinal muscular atrophy 3191417 Completed Carrier - Not in contact with FOB. Asia ramos, [facility] 2 16:43:51 Pregnanc y 49244508 Completed 202304/22/2024 Karina Burroughs null, [facility] 4 11:00:49 Anxiety 79688418 Completed prozac Karina Burroughs [facility], [facility] 4 11:00:46 Nausea 878458009 Completed d/c zofran pump 11/08 per pt request Karina ramos [facility] 4 11:00:46 Postpart um hemorrha ge 20960166 Completed 2017 with d&c Karina ramos, [facility] 4 11:00:46 Headache 91763203 Active 2023 Karina ramos, [facility] 5 16:19:28 Pregnanc y 90325739 Active 2023 Karina ramos [facility] 5 16:19:28 Uncompli cated moderate persiste nt asthma 518830401 Active 2024 albutero l prn Shawn Mcginnis MD [address], [place], [address], [facility] 5 13:08:36 Anxiety 08709083 Active 2024 sertrali ne started 03/02/25 Shawn Mcginnis MD [address], [place], [address], [facility] 5 13:09:23 Nausea and vomiting 15864462 Active 2024 Shawn Mcginnis MD [address], [place], [address], [facility] 5 13:20:27 Notes:Order faxed to [facility] 08/10 for PICC line, and home health already caring for pt. Vladimir RDZ at [phone] Problem Notes None recorded. Procedures Surgical History Date Name Laterality Status Provider Name and Address Organization Details Recorded Time 5 Date of Last Pap Smear completed Karina Burroughs [facility] 01/28/2025 11:19:42 4 Nexplanon Removal completed Shawn Mcginnis MD [address], [place], [address], [facility] 08/05/2024 15:09:58 4 Control Implant Insertion completed Anju Mcnamara CNM [address], [place], [address], [facility] 05/08/2024 17:59:34 8 Dilation and Curettage completed Karina Burroughs [facility] 07/05/2021 10:17:50 Imaging Results None recorded. Procedure Notes None recorded. Medical Equipment None Reported. Allergies Allergen ID Allergen Name Allergen Category Reaction Reaction Severity Criticality Documentation Date Start Date Code Code System Note Provider Name and Address Organization Details Recorded Time 29151 terbutali ne medicatio n anaphylax is Not available Not available 01/27/20252021 00558 RxNorm Karina Burroughs [facility], [facility] 16:19:27 Medications Name Sig Start Date [...] Prescrib ed Elsewher e: Yes [facility] By: prabhjot Lee r DateTime : [...] n (supplie d by office) insert lot [id number] Exp 01/2026 Not Available Not Available Not Available 28 mg iron-800 mcg tablet 07/05 completed Prescrib ed Elsewher e: Yes Loca tion: Jaelyn castillo [facility] M odify By: prabhjot Lee r DateTime : [...] Updated DateTime 03/02/2025 162.56 cm 27.1 kg/m2 24438.59 g 116 mm[Hg] 81 mm[Hg] Melyssa Santo [facility] 12:59:17 Social History Question Answer Notes LastModified by Organizat ion Details LastModified Time Tobacco Smoking Status Former Smoker Karina Heike ramos, [facility] 07/05/2021 09:06:21 What Is Your Level Of Alcohol Consumption? Occasional [email or web address] Information not available 07/05/2021 If You Are , What Was Your Level Of Alcohol Consumption Prior To ? None [email or web address] Information not available 07/05/2021 Are You Blind Or Do You Have Difficulty Seeing? No [email or web address] Information not available 07/05/2021 What Is Your Level Of Caffeine Consumption? Heavy [email or web address] Information not available 07/05/2021 In The 14 Days Before Symptom Onset, Have You Had Close Contact With A Laboratory-confir med COVID-19 While That Case Was Ill? No [email or web address] Information not available 07/05/2021 In The 14 Days Before Symptom Onset, Have You Had Close Contact With A Person Who Is Under Investigation For COVID-19 While That Person Was Ill? No [email or web address] Information not available 07/05/2021 Have You Been To An Area Known To Be High Risk For COVID-19? No Information not available 07/05/2021 Are You Deaf Or Do You Have Serious Difficulty Hearing? No [email or web address] Information not available 07/05/2021 What Type Of Diet Are You Following? REGULAR [email or web address] Information not available 07/05/2021 Which Illicit Or Recreational Drugs Have You Used? Marijuana [email or web address] Information not available 07/05/2021 Do You Or Have You Ever Used E-cigarettes Or Vape? Current User Of Electronic Cigarettes Information not available 07/05/2021 Have You Ever Been Counseled For Unhealthy Alcohol Use? No [email or web address] Information not available 07/05/2021 Do You Use Your Seat Belt Or Car Seat Routinely? Yes [email or web address] Information not available 07/05/2021 Do You Have Smoke And Carbon Monoxide Detectors In Your Home? Yes [email or web address] Information not available 07/05/2021 Do You Or Have You Ever Used Smokeless Tobacco? Never Used Smokeless Tobacco [email or web address] Information not available 07/05/2021 Do You Feel Stressed (tense, Restless, Nervous, Or Anxious, Or Unable To Sleep At Night)? [id number] [email or web address] Information not available 07/05/2021 Do You Use Any Illicit Or Recreational Drugs? Yes Information not available 07/05/2021 Do You Use Sunscreen Routinely? Yes [email or web address] Information not available 07/05/2021 Has Tobacco Cessation Counseling Been Provided? No [email or web address] Information not available 07/05/2021 Have You Used IV Drugs? No [email or web address] Information not available 07/05/2021 Do You Or Have You Ever Used Any Other Forms Of Tobacco Or Nicotine? Yes [email or web address] Information not available 07/05/2021 Sex: Unknown Functional Status Question Answer Note LastModified by Organizat ion Details LastModified Time Do you have difficulty walking or climbing stairs? No [email or web address] Information not available 12/06/2021 Are you able to walk? YESWOREST [email or web address] Information not available 07/05/2021 Are you able to care for yourself? Yes [email or web address] Information not available 12/06/2021 Do you have difficulty dressing or bathing? No [email or web address] Information not available 12/06/2021 What is your exercise level? Occasional Information not available 07/05/2021 Mental Status None recorded. Family History Relationship Description Onset Age of this Age Resolved Age Notes LastModified by Organization Details LastModified Time Father No current problems or disability [email or web address] Not available 05/2021 09:06:31 Mother No current problems or disability [email or web address] Not available 05/2021 09:06:31 Medical History Condition [...] SNOMED-CT Code Diagnosis ICD10 Code Diagnosis Note [id number] Shawn Mcginnis MD [facility] [address],[place] [address] 02/04/2025 10:09:23 02/04/2025 10:48:21 Headache 33029531 R51.9 Nausea and vomiting 1693 2000 R11.2 25-year-ol d female with severe nausea, 8 weeks gestation, hyperemesi s gravidarum . Patient states Norah is not working anymore. She is unable to keep liquids down. We talked about various treatment options in detail. Spent over 20 minutes face-to-fa ce with the patient and on her care in total. We agreed to send to labor and delivery for IV fluids. [id number] Shawn Mcginnis MD [facility] [address],[place] [address] 03/02/2025 12:17:19 03/02/2025 12:53:50 screening [id number] Z36.82 Z3A.11 [id number] Shawn Mcginnis MD [facility] [address] [address] 03/02/2025 12:17:40 03/02/2025 15:40:54 Anxiety 84185306 F41.9 care status 24 0816647 Z34.81 Health Concerns Section Related Observation LastModified by Organization Detai ls LastModified Time None Recorded Concern Status LastModified by Organization Details LastModified Time None Recorded Payers Encounter Date Sequence Insurance Name Policy Number Policy Roberts Covered Member ID Roberts Member ID Guarantor Name 03/02/2025 1 [facility] (MEDICAID HMO) [id number] Yuni Mejia [id number] Yuni Mejia OBGyn Episode Ob Episode Information Episode Created Date Number of Fetuses Patient Bloodtype Patient rh Status Prepregnancy Weight lbs Domestic Partner Domestic Partner Phone Father Name Staff Development Coordinator Status 03/02/20 1 B Positive 164 OPEN Fetus Data First Name Last Name Admitted to NICU Weight (g) Sex Living Outcome Pediatric Complications Fetus ID Race Codes Race Delivery Type [id number] Problems Problem Notes Problem Name Start Date End Date Resolution Snomed Code Not e Uncomplicated moderate persistent asthma 03/02/2025 [id number] albuterol prn Nausea and vomiting 03/02/2025 73517066 Anxiety 03/02/2025 46747120 sertralin e started 03/02/25 Jun Calculation Initial [...] Latest Days Gestation 0 09/11/20 25 0 Pre-fabiola Flowsheet Flowsheet Date 03/02/2025 Gibson Score Blood Edema Fundus Height Fundus Units Glucose Ketones Leukocytes Nitrite Labor Signs Protein Cervic Dilation Cervic Effacement Cervic Station Type Weight in lbs Pre/Post Dialysis Refused Weight 158.682898931003 BP Diastolic BP Location Tested BP Systolic [...]
--- NOTE | 2025-03-03 21:11 | PC.NURSE ---
Called Tamiko Mcnamara CNM, update on pt and nausea and vomiting. Orders received for D5LR fluid bolus, zofran, and pepcid, CBC, CMP, and urinalysis.
[2025-03-03] MEDS: ONDANSETRON INJ 4 MG/2 ML VIAL IV PUSH (21:57)
[2025-03-03] MEDS: FAMOTIDINE 20 MG/2 ML VIAL IV PUSH (21:59)
[2025-03-03] MEDS: DEXTROSE 5%/LACTATED RINGERS 1,000 ML 999 ML IV CONT (22:03)
[2025-03-03 22:10] LABS: Basophils Percent Auto 0.3 % (0.2-1.2); Eosinophils Absolute Auto 0.1 K/mm3 (0-0.3); Eosinophils Percent Auto 0.8 % (0-4.4); Hematocrit 34.6 % (37.0-47.0); Hemoglobin 11.2 g/dL (12.0-15.0); Immature Granulocyte Absolute 0.05 K/mm3 (0.00-0.031); Immature Granulocyte Percent A 0.4 % (0-0.5); Lymphocytes Absolute Auto 2.23 K/mm3 (0.9-3.2); Lymphocytes Percent Auto 18.8 % (18.3-44.2); Mean Corpuscular HGB Conc 32.4 g/dl (32-36); Mean Corpuscular Hemoglobin 26.9 pg (26-34); Mean Corpuscular Volume 83.2 fl (80-100); Mean Platelet Volume 9.4 fl (7.4-10.4); Monocytes Absolute Auto 0.9 K/mm3 (0.1-0.6); Monocytes Percent Auto 7.7 % (2.6-8.5); Neutrophils Absolute Auto 8.6 K/mm3 (1.3-6.7); Platelet Count Result 315 k/mm3 (150-375); Red Blood Count 4.16 M/mm3 (4.2-5.4); Red Cell Distribution Width 12.4 % (11.5-14.5); White Blood Count 11.9 K/mm3 (4.5-10.0)
[2025-03-03 22:17] LABS: Add Urine Microscopic? YES; Appearance Urine Clear (Clear); Bacteria Urine 1+ /hpf; Bilirubin Urine Negative (Negative); Blood Urine Negative (Negative); Color Urine Yellow (Yellow); Glucose Urine UA Negative (Negative); Ketones Urine 3+ mg/dL (Negative); Leukocyte Esterase Ur Negative LEU/UL (Negative); Nitrate Urine Negative (Negative); Protein Urine Trace mg/dL (Negative); Specific Grav Ur 1.034 (1.001-1.035); Squamous Epithelial Cell Urine Few /hpf (Few); WBC Urine 0-5 /hpf (0-3)
[2025-03-03 22:21] LABS: Alanine Aminotransferase 14 U/L (6-35); Albumin Level 4.1 g/dL (3.5-5.1); Alkaline Phosphatase 63 U/L (38-126); Anion Gap 9 mmol/L (4-12); Aspartate Amino Transferase 20 U/L (14-36); Bilirubin,Total 0.3 mg/dL (0.2-1.3); Blood Urea Nitrogen 10 mg/dL (7-17); Calcium 9.2 mg/dL (8.4-10.2); Carbon Dioxide 22 mmol/L (22-30); Chloride 105 mmol/L (98-107); Estimated CRCL calculation 156 ml/min; Estimated Glomerular Filt Rate > 60; Glucose 91 mg/dL (65-110); Potassium 3.3 mmol/L (3.4-5.0); Sodium 136 mmol/L (137-145)
--- NOTE | 2025-03-03 22:25 | PC.NURSE ---
Called Tamiko Mcnamara CNM, update on pt, labs, and pt request for anxiety medication. Orders received to administer D5LR 150 ml/hr after fluid bolus and hydroxyzine 25 mg.
--- NOTE | 2025-03-03 22:38 | PC.NURSE ---
Pt denies ordered hydroxyzine, requests benadryl for sleep.
--- NOTE | 2025-03-03 22:39 | PC.NURSE ---
Called Tamiko Mcnamara CNM, update on pt denies hydroxyzine and request for benadryl. Orders received for benadryl 25 mg.
[2025-03-03] MEDS: diphenhydrAMINE HCl INJ 50 MG/ML VIAL 25 MG IV PUSH (22:58)
[2025-03-04] MEDS: DEXTROSE 5%/LACTATED RINGERS 1,000 ML 150 ML IV CONT (00:17)
--- NOTE | 2025-03-04 06:30 | PC.NURSE ---
Report given to Padilla Celis RN and Padilla Penny RN.
--- OUTSIDE RECORDS SUMMARY | 2025-03-05 07:38 | XMS_ITS | Clinical Summary ---
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 Ortega Denson in [place], [place]. Assessment & Plan (07/04/2019 7:48 PM CDT): - no plans to initiate care [place] - gave Rx for doxylamine/pyridoxine for nausea - encouraged smoking cessation; recommended she d/w Dr. Addison Denson when she establishes care Abdominal pain in 07/04/2019 Overview (07/04/2019): 07/04/2019: presented to [facility], r/o for acute process. Transfer to [facility] for dating confirmation. Reports no BM [...] Department Care Team Description 12/31/2024 2:47 PM SKETCH LINER - 12/31/2024 5:34 PM SKETCH LINER [facility] Emergency Department [address] [place] [id number] Shortness of breath (Primary Dx) Discharge Disposition: [...] on file Legal Sex Female 11:55 PM SKETCH LINER Gender Identity Not on file Sexual Orientation [...] Comments Blood Pressure 101/69 12/31/2024 5:25 PM SKETCH LINER Pulse 77 12/31/2024 5:25 PM SKETCH LINER Temperature 37.1 C (98.7 F) 12/31/2024 2:09 PM SKETCH LINER Respiratory Rate 18 12/31/2024 5:25 PM SKETCH LINER Oxygen Saturation 100% 12/31/2024 5:25 PM SKETCH LINER Inhaled Oxygen Concentration - - Weight 72.7 kg (160 lb 4.4 oz) 12/31/2024 2:09 P M SKETCH LINER Height 165.1 cm (5' 5) 12/31/2024 2:09 PM SKETCH LINER Body Mass Index 26.67 12/31/2024 2:09 PM SKETCH LINER Plan of Treatment Health Maintenance Due Date [...] CHEST PE W CONTRAST ED 3:51 PM SKETCH LINER POCT HCG, URINE Routine 12/31/2024 3:19 PM SKETCH LINER XR CHEST PA LATERAL 2 VIEWS ED 12/31/2024 2:26 PM SKETCH LINER EGFR STAT 12/31/2024 2:16 PM SKETCH LINER DIFFERENTIAL AUTO STAT 12/31/2024 2:1 6 PM SKETCH LINER D-DIMER, QUANTITATIVE STAT 12/31/2024 2:16 PM SKETCH LINER COMPREHENSIVE METABOLIC PANEL STAT 12/31/2024 2:16 PM SKETCH LINER CBC WITH AUTO DIFFERENTIAL STAT 12/31/2024 2:16 PM SKETCH LINER INFLUENZA A/B, RSV, AND COVID-19 PCR STAT 12/31/2024 2:16 PM SKETCH LINER from Last 3 Months Results * CT Chest PE (CTA) W Contrast (12/31/2024 3:51 PM SKETCH LINER) Anatomical Region Laterality Modality Body N/A Computed Tomogra phy 12/31/2024 4:49 PM SKETCH LINER Narrative 12/31/2024 5:03 PM SKETCH LINER EXAM DESCRIPTION: CT CHEST PE (CTA) W [...] Quang Decker M.D. LC: GABRIEL Report ID: [id number] Reading Location: [place] [address] Procedure Note Yumiko Decker MD - 12/31/2024 [...] Quang Decker M.D. LC: GABRIEL Report ID: [id number] Reading Location: [place] [address] [address] [address] [facility] [address] PROCEDURES Final Result * POCT hCG, urine (12/31/2024 3:19 PM SKETCH LINER) HCG, ur, POC Negative Negative Lot Number [id number] QC Backgroud Clear Acceptable QC Control Line Acceptable Urine 12/31/2024 3:19 PM SKETCH LINER us Lesley DE LEON POINT OF CARE TEST ORDERABLES F inal Result * XR Chest PA Lateral 2 Views (12/31/2024 2:26 PM SKETCH LINER) Anatomical Region Laterality Modality Body, Chest N/A Computed Radiogr aphy 12/31/2024 2:43 PM SKETCH LINER Narrative 12/31/2024 2:43 PM SKETCH LINER EXAM DESCRIPTION: XR CHEST PA LATERAL 2 [...] by Remberto Carney M.D. JR: Report ID: [id number] Reading Location: [id number] Procedure Note Remberto Carney MD - 12/31/2024 [...] by Remberto Carney M.D., JR: Report ID: [id number] Reading Location: [id number] Lesley DE LEON IM XR PROCEDURES Final Result * Influenza A/B, RSV, and COVID-19 PCR Nasopharyngeal (12/31/2024 2:16 PM SKETCH LINER) COVID-19 RNA Negative Negative Comment:Testing performed by : [facility], [address] [place] [address]., [address] Influenza A RNA Negative Negative [facility] Comment:Testing performed by : [address] [address] Influenza B RNA Negative Negative [facility] Comment:Testing performed by : [facility], [address] [place] [address]., [address] RSV RNA Negative Negative [facility] Comment: Interpretive data: Testing performed by [facility]. This test is performed using the [employer] Xpert Xpress CoV-2/Flu/RSV plus assay. This is a multiplex, real-time reverse transcriptase PCR assay intended for the qualitative detection of nucleic acid from SARS-CoV-2, influenza A, influenza B, and respiratory syncytial virus. This assay has been cleared by the [place] Food and Drug administration. The performance characteristics have been verified by the [facility]. Results must be considered in the clinical context, and a negative result does not rule out infection. Interpretive Data last revised 2023 Testing performed by: [address] [address] Nasopharyngeal 12/31/2024 2: 16 PM SKETCH LINER 12/31/2024 2:24 PM SKETCH LINER Narrative [facility] - 12/31/2024 3:09 PM SKETCH LINER Is the Patient experiencing symptoms consistent with COVID?->Yes [facility] LAB MICROBIOLOGY - GENERAL [place]SE [place] Final Result [facility] [address] [facility] Department [place] [address] * eGFR (12/31/2024 2:16 PM SKETCH LINER) eGFR >90 >=60 mL/min/1. 73 m2 Comment: [...] was last reviewed 2021. Testing performed by: [address] [address] Blood 12/31/2024 2:16 PM SKETCH LINER 12/31/2024 2:24 PM SKETCH LINER us Lesley DE LEON LAB BLOOD ORDERABLES Final Resu lt [facility] [address] [facility] Department [place] [address] * (ABNORMAL) Differential, auto (12/31/2024 2:16 PM SKETCH LINER) Neutrophil abs 6.0 1.5 - 6.5 K/cumm Comment:Testing performed by : [address] [address] Imm gran abs 0.0 0.0 - 0.1 K/cumm [facility] Comment:Testing performed by : [address] [address] Lymphocyte abs 2.7 0.8 - 3.3 K/cumm [facility] Comment:Testing performed by : [address] [address] Monocyte abs 0.9(H) 0.2 - 0.8 K/cumm [facility] Comment:Testing performed by : [address] [address] Eosinophil abs 0.1 0.0 - 0.5 K/cumm [facility] Comment:Testing performed by : [address] [address] Basophil abs 0.0 0.0 - 0.1 K/cumm [facility] Comment:Testing performed by : [address] [address] Neutrophil pct 61.6 % [facility] Comment: Interpretive Data Percent cell count reference ranges are not reported, since discordance with absolute values may lead to misinterpretation of CBC data. Current Interpretive Data was last revised on 2018. Testing performed by: [address] [address] Imm gran pct 0.3 % [facility] Comment: Interpretive Data Percent cell count reference ranges are not reported, since discordance with absolute values may lead to misinterpretation of CBC data. Current Interpretive Data was last revised on 2018. Testing performed by: [address] [address] Lymphocyte pct 27.3 % [facility] Comment: Interpretive Data Percent cell count reference ranges are not reported, since discordance with absolute values may lead to misinterpretation of CBC data. Current Interpretive Data was last revised on 2018. Testing performed by: [address] [address] Monocyte pct 9.4 % [facility] Comment: Interpretive Data Percent cell count reference ranges are not reported, since discordance with absolute values may lead to misinterpretation of CBC data. Current Interpretive Data was last revised on 2018. Testing performed by: [address] [address] Eosinophil pct 1.2 % [facility] Comment: Interpretive Data Percent cell count reference ranges are not reported, since discordance with absolute values may lead to misinterpretation of CBC data. Current Interpretive Data was last revised on 2018. Testing performed by: [address] [address] Basophil pct 0.2 % [facility] Comment: Interpretive Data Percent cell count reference ranges are not reported, since discordance with absolute values may lead to misinterpretation of CBC data. Current Interpretive Data was last revised on 2018. Testing performed by: [address] [address] Blood 12/31/2024 2:16 PM SKETCH LINER 12/31/2024 2:24 PM SKETCH LINER Lesley DE LEON LAB BLOOD ORDERABLES Final Resu lt [facility] [address] [facility] Department [place] [address] * (ABNORMAL) CBC with auto differential (12/31/2024 2:16 PM SKETCH LINER) WBC 9.8 3.8 - 9.9 K/cumm Comment:Testing performed by : [address] [address] Hgb 12.8 11.9 - 15.5 g/dL [facility] Comment:Testing performed by : [address] [address] Hct 40.0 35.6 - 45.5 % [facility] Comment:Testing performed by : [address] [address] Plt 288 150 - 400 K/cumm [facility] Comment:Testing performed by : [address] [address] MPV 9.7 9.1 - 12.3 fL [facility] Comment:Testing performed by : [address] [address] RBC 4.74 3.90 - 5.20 M/cumm [facility] Comment:Testing performed by : [address] [address] MCV 84.4 81.3 - 96.4 fL [facility] Comment:Testing performed by : [address] [address] MCH 27.0(L) 27.1 - 33.3 pg [facility] Comment:Testing performed by : [address] [address] MCHC 32.0(L) 32.3 - 35.7 g/dL [facility] Comment:Testing performed by : [address] [address] RDW CV 12.2 11.1 - 14.9 % [facility] Comment:Testing performed by : [address], [address] RDW SD 36.9 35.7 - 48.1 fL [facility] Comment:Testing performed by : [facility], [address] [place] [address]., [address] NRBC abs 0.00 0.00 - 0.01 K/cumm [facility] TOM Comment:Testing performed by : [facility], [address] [place] [address]., [address] Blood 12/31/2024 2:16 PM SKETCH LINER 12/31/2024 2:24 PM SKETCH LINER Lesleymorgan Soria DE LAB BLOOD ORDERABLES Final Resu lt Performing Organization Address [facility] Co de Phone Number [facility] [address] [facility] [place] [address] * (ABNORMAL) D-dimer, quantitative (12/31/2024 2:16 PM SKETCH LINER) D-Dimer 720(H) <=499 ng/mL FEU Comment: Interpretive [...] last revised on 2019. Testing performed by: [address] [address] Blood 12/31/2024 2:16 PM SKETCH LINER 12/31/2024 2:24 PM SKETCH LINER Lesley Climax DE LAB BLOOD ORDERABLES Final Resu lt Performing Organization Address [facility]/ZIP Co de Phone Number [facility] [address] [facility] [place] [address] * (ABNORMAL) Comprehensive metabolic panel (12/31/2024 2:16 PM SKETCH LINER) Sodium 137 135 - 145 mmol/L Comment:Testing performed by : [address] [address] Potassium, pl 4.1 3.3 - 4.9 mmol/L [facility] Comment:Testing performed by : [address] [address] Chloride 103 97 - 110 mmol/L [facility] Comment:Testing performed by : [address], [place]., [address] CO2 24 22 - 32 mmol/L [facility] Comment:Testing performed by : [address] [address] Anion gap 10 2 - 15 mmol/L [facility] Comment:Testing performed by : [address], [place]., [address] BUN 11 6 - 25 mg/dL [facility] Comment:Testing performed by : [address], [place]., [address] Creatinine 0.57(L) 0.60 - 1.10 mg/dL [facility] Comment:Testing performed by : [address] [address] Glucose 89 70 - 199 mg/dL [facility] Comment: Interpretive Data Fasting glucose >/= [...] was last revised 2022. Testing performed by: [address] [address] Calcium 9.7 8.5 - 10.3 mg/dL [facility] Comment:Testing performed by : [address] [address] Bilirubin, total 0.2 0.1 - 1.2 mg/dL [facility] TOM Comment:Testing performed by : [address] [address] Protein, pl 7.9 6.5 - 8.5 g/dL [facility] Comment:Testing performed by : [address] [address] Albumin 4.4 3.5 - 5.0 g/dL [facility] Comment:Testing performed by : [address] [address] Alk phos 89 40 - 130 Units/L [facility] Comment:Testing performed by : [address] [address] ALT 21 7 - 45 Units/L [facility] Comment:Testing performed by : [address] [address] AST 24 10 - 45 Units/L [facility] Comment:Testing performed by : [address] [address] Blood 12/31/2024 2:16 PM SKETCH LINER 12/31/2024 2:24 PM SKETCH LINER us Lesley DE LEON LAB BLOOD ORDERABLES Final Resu lt [facility] [address] [facility] Department [place] [address] from Last 3 Months Insurance [facility] Care Teams Turning Machine Set Up Operator Relationship Specialty Start Date End Date Tammi Menon LauraDOREEN [address] Pediatric Emerg. Dept. [place] [id number] PCP - General Family Medicine 12/31/24
--- OUTSIDE RECORDS SUMMARY | 2025-03-05 07:38 | XMS_ITS | Encounter Summary ---
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 [address] PCP - General Family Medicine 12/31/24 documented as of this encounter
--- OUTSIDE RECORDS SUMMARY | 2025-03-05 07:38 | XMS_ITS | Referral Summary ---
Author Organization [facility] Address [address] [place] [address] Care Team Providers Care Hospital Director Name Role Phone Tammi Menon DOREEN Primary Care Provider Encounters Date Type Department Care Team Description 12/31/2024 2:47 PM TUBE BACKER - 12/31/2024 5:34 PM [facility] Emergency [facility] ([place], [place]) Emergency Department [address] [place] [address] Shortness of breath (Primary Dx) [...] have care with Dr. Ortega Denson in [place], [place]. Assessment & Plan (07/04/2019 7:48 PM CDT): - no plans to initiate care in [facility] - gave Rx for doxylamine/pyridoxine for nausea - encouraged smoking cessation; recommended she d/w Dr. Addison Denson when she establishes care Abdominal pain in 07/04/2019 Overview (07/04/2019): 07/04/2019: presented to [facility], r/o for acute process. Transfer to [facility] for dating confirmation. Reports no BM [...] on file Legal Sex Female 11:55 PM TUBE BACKER Gender Identity Not on file Sexual Orientation Not on file Last Filed Vital Signs Vital Sign Reading Time Taken Comments Blood Pressure 101/69 12/31/2024 5:25 PM TUBE BACKER Pulse 77 12/31/2024 5:25 PM TUBE BACKER Temperature 37.1 C (98.7 F) 12/31/2024 2:09 PM TUBE BACKER Respiratory Rate 18 12/31/2024 5:25 PM TUBE BACKER Oxygen Saturation 100% 12/31/2024 5:25 PM TUBE BACKER Inhaled Oxygen Concentration - - Weight 72.7 kg (160 lb 4.4 oz) 12/31/2024 2:09 P M TUBE BACKER Height 165.1 cm (5' 5) 12/31/2024 2:09 PM TUBE BACKER Body Mass Index 26.67 12/31/2024 2:09 PM TUBE BACKER Plan of Treatment Not on file Procedures Procedure Name Priority Date/Time Associated Diagnosis Comments CT CHEST PE W CONTRAST ED 3:51 PM TUBE BACKER POCT HCG, URINE Routine 12/31/2024 3:19 PM TUBE BACKER XR CHEST PA LATERAL 2 VIEWS ED 12/31/2024 2:26 PM TUBE BACKER EGFR STAT 12/31/2024 2:16 PM TUBE BACKER DIFFERENTIAL AUTO STAT 12/31/2024 2:1 6 PM TUBE BACKER D-DIMER, QUANTITATIVE STAT 12/31/2024 2:16 PM TUBE BACKER COMPREHENSIVE METABOLIC PANEL STAT 12/31/2024 2:16 PM TUBE BACKER CBC WITH AUTO DIFFERENTIAL STAT 12/31/2024 2:16 PM TUBE BACKER INFLUENZA A/B, RSV, AND COVID-19 PCR STAT 12/31/2024 2:16 PM TUBE BACKER from Last 3 Months Results * CT Chest PE (CTA) W Contrast (12/31/2024 3:51 PM TUBE BACKER) Anatomical Region Laterality Modality Body N/A Computed Tomogra phy 12/31/2024 4:49 PM TUBE BACKER Narrative 12/31/2024 5:03 PM TUBE BACKER EXAM DESCRIPTION: CT CHEST PE (CTA) W [...] Quang Decker M.D. LC: GABRIEL Report ID: [id number] Reading Location: [id number] Procedure Note Yumiko Decker MD - 12/31/2024 [...] Quang Decker M.D. LC: GABRIEL Report ID: [id number] Reading Location: [place] [address] [facility] CT PROCEDURES Final Result * POCT hCG, urine (12/31/2024 3:19 PM TUBE BACKER) HCG, ur, POC Negative Negative Lot Number [id number] QC Backgroud Clear Acceptable QC Control Line Acceptable Urine 12/31/2024 3:19 PM TUBE BACKER [facility] POINT OF CARE TEST ORDERABLES F inal Result * XR Chest PA Lateral 2 Views (12/31/2024 2:26 PM TUBE BACKER) Anatomical Region Laterality Modality Body, Chest N/A Computed Radiogr aphy 12/31/2024 2:43 PM TUBE BACKER Narrative 12/31/2024 2:43 PM TUBE BACKER EXAM DESCRIPTION: XR CHEST PA LATERAL 2 [...] by Remberto Carney M.D. JR: Report ID: [id number] Reading Location: [id number] Procedure Note Remberto Carney MD - 12/31/2024 [...] by Remberto Carney M.D. JR: Report ID: [id number] Reading Location: [place] [address] us [facility] IMG XR PROCEDURES Final Result * Influenza A/B, RSV, and COVID-19 PCR Nasopharyngeal (12/31/2024 2:16 PM TUBE BACKER) Pathologist [facility] COVID-19 RNA Negative Negative Comment:Testing performed by : [address], [address] Influenza A RNA Negative Negative [facility] Comment:Testing performed by : [address] [address] Influenza B RNA Negative Negative [facility] Comment:Testing performed by : [address], [address] RSV RNA Negative Negative [facility] Comment: Interpretive data: Testing performed by [facility] ([place], [place]) Laboratory. This test is performed using the [employer] Xpert Xpress CoV-2/Flu/RSV plus assay. This is a multiplex, real-time reverse transcriptase PCR assay intended for the qualitative detection of nucleic acid from SARS-CoV-2, influenza A, influenza B, and respiratory syncytial virus. This assay has been cleared by the [place] Food and Drug administration. The performance characteristics have been verified by the [facility] ([place], [place]) Laboratory. Results must be considered in the clinical context, and a negative result does not rule out infection. Interpretive Data last revised 2023 Testing performed by: [address] [address] Nasopharyngeal 12/31/2024 2: 16 PM TUBE BACKER 12/31/2024 2:24 PM TUBE BACKER Narrative YEVGENIY - 12/31/2024 3:09 PM TUBE BACKER Is the Patient experiencing symptoms consistent with COVID?->Yes us [facility] MICROBIOLOGY - GENERAL ORDE RABLES Final Result Performing Organization Address City/State/[facility] [[email or web address]] de Phone Number YEVGENIY [facility] Department [place] [address] * eGFR (12/31/2024 2:16 PM TUBE BACKER) Pathologist [facility] eGFR >90 >=60 mL/min/1. 73 m2 Comment: [...] was last reviewed 2021. Testing performed by: [address] [address] Blood 12/31/2024 2:16 PM TUBE BACKER 12/31/2024 2:24 PM TUBE BACKER us [facility] BLOOD ORDERABLES Final Resu lt Performing Organization Address [facility] Co de Phone Number YEVGENIY [facility] Department [place] [address] * (ABNORMAL) Differential, auto (12/31/2024 2:16 PM TUBE BACKER) Pathologist [facility] Neutrophil abs 6.0 1.5 - 6.5 K/cumm Comment:Testing performed by : [address] [address] Imm gran abs 0.0 0.0 - 0.1 K/cumm YEVGENIY Comment:Testing performed by : [address] [address] Lymphocyte abs 2.7 0.8 - 3.3 K/cumm C[facility]ER Comment:Testing performed by : [address], [place]., [address] Monocyte abs 0.9(H) 0.2 - 0.8 K/cumm C[facility]ER Comment:Testing performed by : [address], [place]., [address] Eosinophil abs 0.1 0.0 - 0.5 K/cumm [facility] Comment:Testing performed by : [address], [place]., [address] Basophil abs 0.0 0.0 - 0.1 K/cumm [facility] Comment:Testing performed by : [address] [address] Neutrophil pct 61.6 % [facility] Comment: Interpretive Data Percent cell count reference ranges are not reported, since discordance with absolute values may lead to misinterpretation of CBC data. Current Interpretive Data was last revised on 2018. Testing performed by: [address] [address] Imm gran pct 0.3 % [facility] Comment: Interpretive Data Percent cell count reference ranges are not reported, since discordance with absolute values may lead to misinterpretation of CBC data. Current Interpretive Data was last revised on 2018. Testing performed by: [address] [address] Lymphocyte pct 27.3 % [facility] Comment: Interpretive Data Percent cell count reference ranges are not reported, since discordance with absolute values may lead to misinterpretation of CBC data. Current Interpretive Data was last revised on 2018. Testing performed by: [address] [address] Monocyte pct 9.4 % [facility] Comment: Interpretive Data Percent cell count reference ranges are not reported, since discordance with absolute values may lead to misinterpretation of CBC data. Current Interpretive Data was last revised on 2018. Testing performed by: [address] [address] Eosinophil pct 1.2 % [facility] Comment: Interpretive Data Percent cell count reference ranges are not reported, since discordance with absolute values may lead to misinterpretation of CBC data. Current Interpretive Data was last revised on 2018. Testing performed by: [address] [address] Basophil pct 0.2 % YEVGENIY TOM Comment: Interpretive Data Percent cell count reference ranges are not reported, since discordance with absolute values may lead to misinterpretation of CBC data. Current Interpretive Data was last revised on 2018. Testing performed by: [address] [address] Blood 12/31/2024 2:16 PM TUBE BACKER 12/31/2024 2:24 PM TUBE BACKER us [facility] BLOOD ORDERABLES Final Resu lt Y[facility]GEN[facility]Y [facility] Department [place] [address] * (ABNORMAL) CBC with auto differential (12/31/2024 2:16 PM TUBE BACKER) WBC 9.8 3.8 - 9.9 K/cumm Comment:Testing performed by : [address] [address] Hgb 12.8 11.9 - 15.5 g/dL YEVGENIY TOM Comment:Testing performed by : [address] [address] Hct 40.0 35.6 - 45.5 % [facility]EVGEN[facility]Y TOM Comment:Testing performed by : [address] [address] Plt 288 150 - 400 K/cumm YEVGENIY TOM Comment:Testing performed by : [address] [address] MPV 9.7 9.1 - 12.3 fL YEVGENIY TOM Comment:Testing performed by : [address] [address] RBC 4.74 3.90 - 5.20 M/cumm YEVGENIY TOM Comment:Testing performed by : [address] [address] MCV 84.4 81.3 - 96.4 fL YEVGENIY Comment:Testing performed by : [address] [address] MCH 27.0(L) 27.1 - 33.3 pg YEVGENIY TOM Comment:Testing performed by : [address] [address] MCHC 32.0(L) 32.3 - 35.7 g/dL YEVGENIY TOM Comment:Testing performed by : [address] [address] RDW CV 12.2 11.1 - 14.9 % YEVGENIY Comment:Testing performed by : [address] [address] RDW SD 36.9 35.7 - 48.1 fL YEVGENIY Comment:Testing performed by : [address] [address] NRBC abs 0.00 0.00 - 0.01 K/cumm YEVGENIY Comment:Testing performed by : [address] [address] Blood 12/31/2024 2:16 PM TUBE BACKER 12/31/2024 2:24 PM TUBE BACKER us [facility] BLOOD ORDERABLES Final Resu lt YEVGENIY [address] [facility] Department of Laboratories [place], [place] [id number] * (ABNORMAL) D-dimer, quantitative (12/31/2024 2:16 PM TUBE BACKER) D-Dimer 720(H) <=499 ng/mL FEU Comment: Interpretive [...] last revised on 2019. Testing performed by: [address] [address] Blood 12/31/2024 2:16 PM TUBE BACKER 12/31/2024 2:24 PM TUBE BACKER us [facility] BLOOD ORDERABLES Final Resu lt YEVGENIY [address] Department [place] [address] * (ABNORMAL) Comprehensive metabolic panel (12/31/2024 2:16 PM TUBE BACKER) Sodium 137 135 - 145 mmol/L Comment:Testing performed by : [address] [address] Potassium, pl 4.1 3.3 - 4.9 mmol/L YEVGENIY Comment:Testing performed by : [address] [address] Chloride 103 97 - 110 mmol/L YEVGENIY Comment:Testing performed by : [address] [address] CO2 24 22 - 32 mmol/L YEVGENIY Comment:Testing performed by : [address] [address] Anion gap 10 2 - 15 mmol/L YEVGENIY Comment:Testing performed by : [address] [address] BUN 11 6 - 25 mg/dL YEVGENIY Comment:Testing performed by : [address] [address] Creatinine 0.57(L) 0.60 - 1.10 mg/dL YEVGENIY Comment:Testing performed by : [address] [address] Glucose 89 70 - 199 mg/dL YEVGENIY [...] was last revised 2022. Testing performed by: [address] [address] Calcium 9.7 8.5 - 10.3 mg/dL YEVGENIY Comment:Testing performed by : [address] [address] Bilirubin, total 0.2 0.1 - 1.2 mg/dL YEVGENIY Comment:Testing performed by : [address] [address] Protein, pl 7.9 6.5 - 8.5 g/dL YEVGENIY Comment:Testing performed by : [address] [address] Albumin 4.4 3.5 - 5.0 g/dL YEVGENIY Comment:Testing performed by : [address] [address] Alk phos 89 40 - 130 Units/L YEVGENIY Comment:Testing performed by : [address] [address] ALT 21 7 - 45 Units/L YEVGENIY Comment:Testing performed by : [address] [address] AST 24 10 - 45 Units/L YEV[facility]IY Comment:Testing performed by : [address] [address] Blood 12/31/2024 2:16 PM TUBE BACKER 12/31/2024 2:24 PM TUBE BACKER [facility] BLOOD ORDERABLES Final Resu lt [facility] MH [address] [facility] [place] [address] from Last 3 Months Insurance [facility] Care Teams Hospital Director Relationship Specialty Start Date End Date Tammi Menon APRN [address] [place] [address] PCP - General Family Medicine 12/31/24
--- OUTSIDE RECORDS SUMMARY | 2025-03-05 07:38 | XMS_ITS | Clinical Summary ---
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) 05/13/2024 Headache 05/13/2024 Estimated Date of Delivery Comme nts Yes 09/17/2025 Encounters Date Type Department Care Team Description 02/28/2025 5:59 PM CDT - 02/28/2025 7:58 PM CDT [facility] [address] [place] [address] [place] [address] Fantasma Pedroza, DO Vomiting Discharge Disposition: Home or Self Care (Routine Discharge) 02/28/2025 Travel 02/13/2025 8:45 PM CDT - 02/13/2025 10:19 PM CDT [facility] [address] [place] [address] [place] [address] Nacho Recinos MD Vomiting Discharge Disposition: Home or Self Care (Routine Discharge) 02/13/2025 Travel 02/10/2025 9:44 AM CDT - 02/10/2025 10:15 AM CDT [facility] [address] [place] [address] [place] [address] Kaitlin Colon MD Vomiting Discharge Disposition: Left Against Medical Advice 02/10/2025 Travel 01/24/2025 12:23 PM CDT - 01/24/2025 2:54 PM CDT [facility] [address] [place] [address] [place] [address] Salty Frost MD Vomiting ; Palpitations Discharge Disposition: Home or Self Care (Routine Discharge) 01/24/2025 Travel 01/21/2025 Telephone [facility] [address] [place] [address] Steph Hightower MD Stress Test 01/21/2025 Scan [facility] [address] [place] [address] Scanned, Doc Pccl Stress Test (SCAN) 01/18/2025 8:06 AM CDT - 01/18/2025 11:59 PM CDT Hospital Encounter [facility] [address] [place] [address] [place] [address] Sami Mehta DO Discharge Disposition: Home or Self Care (Routine Discharge) 01/17/2025 3:47 PM CDT - 01/17/2025 9:05 PM CDT [facility] [address] [place] [address] [place] [address] Sami Mehta DO Leg Pain Discharge Disposition: Home or Self Care (Routine Discharge) 01/17/2025 Travel 01/14/2025 1:05 PM CDT - 01/14/2025 11:59 PM CDT Hospital Encounter [facility] [place] [address] Shawn Mcginnis MD Discharge Disposition: Home or Self Care (Routine Discharge) 01/14/2025 Orders Only [address] [place] [address] Shawn Mcginnis MD 01/13/2025 2:01 PM CDT - 01/13/2025 6:59 PM CDT [facility] [address] [place] [address] [place] [address] Kaitlin Colon MD Complications Discharge Disposition: Home [...] Recorded Patient Health Questionnaire-2 Score 0 05/13/2024 [facility] - Occupational Stress [...] CDT Amenorrhea Encounter for test, result positive ([facility]) US OB TRANSVAG STAT 01/13/2025 6:37 [...] - 145 MMOL/L 02/28/2025 7:30 PM CDT [facility] POTASSIUM S/P/B 3.3(L) 3.5 - 5.1 MMOL/L 02/28/2025 7:30 PM CDT [facility] CHLORIDE S/P/B 101 98 - 107 MMOL/L 02/28/2025 7:30 PM CDT [facility] CO2 28.8 21.0 - 32.0 MMOL/L 02/28/2025 7:30 PM CDT [facility] GLUCOSE 86 70 - 99 MG/DL 02/28/2025 7:30 PM T [facility] Comment: FASTING GLUCOSE 100 TO 125 MG/DL IS CONSISTENT WITH IMPAIRED FASTING GLUCOSE. FASTING GLUCOSE >125 MG/DL IS CONSISTENT WITH DIABETES. RANDOM GLUCOSE >200 MG/DL WITH HYPERGLYCEMIC SYMPTOMS IS CONSISTENT WITH DIABETES. PER ADA GUIDELINES BUN 11 6 - 24 MG/DL 02/28/2025 7:30 PM CDT [facility] CREATININE S/P/B 0.62 0.55 - 1.02 MG/DL 02/28/2025 7:30 PM CDT [facility] CALCIUM S/P/B 9.5 8.4 - 10.5 MG/DL 02/28/2025 7:30 PM CDT [facility] BILIRUBIN TOTAL S/P/B 0.2 0.2 - 1.0 MG/DL 02/28/2025 7:30 PM T [facility] Comment: THIS ASSAY IS NOT RECOMMENDED FOR PATIENTS UNDERGOING TREATMENT WITH ELTROMBOPAG DUE TO THE POTENTIAL FOR FALSELY ELEVATED RESULTS. ALKALINE PHOSPHATASE S/P/B 68 37 - 98 U/L 02/28/2025 7:30 PM CDT [facility] AST 16 15 - 37 U/L 02/28/2025 7:30 PM CDT [facility] ALT 21 14 - 59 U/L 02/28/2025 7:30 PM CDT [facility] TOTAL PROTEIN S/P/B 7.7 6.4 - 8.2 G/DL 02/28/2025 7:30 PM CDT [facility] ALBUMIN S/P/B 3.3(L) 3.4 - 5.0 G/DL 02/28/2025 7:30 PM CDT [facility] ANION GAP 5.2 5.0 - 15.0 MMOL/L 02/28/2025 7:30 PM CDT [facility] OSMOLALITY (CALC) 279 MOSM/KG 025 7:30 PM CDT [facility] Comment:REFERENCE RANGE NOT ESTABLISHED GFR ESTIMATE >90 >89 ML/MIN/1. 73 M2 02/28/2025 7:30 PM CDT [facility] GFR NOTES GFR REFERENCE S: 02/28/2025 7:30 PM CDT [facility] Comment: THE ESTIMATED GFR IS [...] us Fantasma Pedroza DO LABORATORY Final Result [facility] [address] [place] [address], * (ABNORMAL) HCG QUANT (SERUM)-CHORIONIC GONADOTROPIN (02/28/2025 6:33 PM CDT) Only the most recent of3 resultswithin the time period is included. HCG QUANTITATIVE 146,741(H ) 0.0 - 6.0 MIU/ML 02/28/2025 7:30 PM CDT [facility] Comment: WEEKS OF REFERENCE RANGES [...] CDT Fantasma Pedroza DO LABORATORY Final Result [facility] [address] [place] [address], * (ABNORMAL) CBC W/DIFF AUTOMATED (02/28/2025 6:33 PM CDT) Only the most recent of5 resultswithin the time period is included. WBC 11.45(H) 4.00 - 10.80 x10'3/uL 02/28/2025 6:41 PM CDT [facility] RBC 4.33 4.10 - 5.40 x10'6/uL 02/28/2025 6:41 PM CDT [facility] HGB 11.8(L) 12.0 - 16.0 G/DL 02/28/2025 6:41 PM CDT [facility] HCT 35.5(L) 36.0 - 47.0 % 02/28/2025 6:41 PM CDT [facility] MCV 82.0 78.0 - 100.0 FL 02/28/2025 6:41 PM CDT [facility] MCH 27.3 27.0 - 31.0 PG 02/28/2025 6:41 PM CDT [facility] MCHC 33.2 33.0 - 36.0 G/DL 02/28/2025 6:41 PM CDT [facility] RDW 12.2 11.5 - 14.5 % 02/28/2025 6:41 PM CDT [facility] PLT 327 150 - 350 x10'3/uL 02/28/2025 6:41 PM CDT [facility] MPV 8.9 7.4 - 10.4 FL 02/28/2025 6:41 PM CDT [facility] CBC COMMENT NORMAL REFERENCE RANGE NOT ESTABLISHED FOR THE PROPORTIONAL LEUKOCYTE DIFFERENTIAL. 02/28/2025 6:41 PM CDT [facility] NEUTROPHILS % 72.9 % 02/28/2025 6:41 PM CDT [facility] LYMPHOCYTES % 17.9 % 02/28/2025 6:41 PM CDT [facility] MONOCYTES % 7.0 % 02/28/2025 6:41 PM CDT [facility] EOSINOPHILS % 1.8 % 02/28/2025 6:41 PM CDT [facility] BASOPHILS % 0.1 % 02/28/2025 6:41 PM CDT [facility] IMMATURE GRANS % 0.3 % 02/29/20 6:41 PM CDT [facility] NRBC % 0.0 % 02/28/2025 6:41 PM CDT [facility] ABS. NEUTROPHILS 8.35(H) 1.60 - 8.30 x10'3/uL 02/28/2025 6:41 PM CDT [facility] ABS. LYMPHOCYTES 2.05 0.80 - 4.70 x10'3/uL 02/28/2025 6:41 PM CDT [facility] ABS. MONOCYTES 0.80 0.00 - 1.50 x10'3/uL 02/28/2025 6:41 PM CDT [facility] ABS. EOSINOPHILS 0.21 0.00 - 0.40 x10'3/uL 02/28/2025 6:41 PM CDT [facility] ABS. BASOPHILS 0.01 0.00 - 0.20 x10'3/uL 02/28/2025 6:41 PM CDT [facility] ABS. IMMATURE GRANULOCYTES 0.03 0.00 - 0.03 x10'3/uL 02/28/2025 6:41 PM CDT [facility] ABS. NUCLEATED RBC'S 0.00 0.00 - 0.01 x10'3/uL 02/28/2025 6:41 PM CDT [facility] 02/28/2025 6:33 PM CDT us Fantasma Pedroza DO LABORATORY Final Result Performing Organization Address [facility]/ZIP Co de Phone Number [facility] [address] [place] [address], * AMYLASE (02/28/2025 6:33 PM CDT) AMYLASE S/P/B 61 25 - 115 UNITS/L 02/28/2025 7:30 PM CDT [facility] 02/28/2025 6:33 PM CDT us Fantasma Bosch Yovany ALFARO LABORATORY Final Result Performing Organization Address [facility] Co de Phone Number [facility] [address] [place] [address], * LIPASE (02/28/2025 6:33 PM CDT) Only the most recent of2 resultswithin the time period is included. LIPASE 27 16 - 77 UNITS/L 02/28/2025 7:30 PM CDT [facility] 02/28/2025 6:33 PM CDT us Fantasma Pedroza LABORATORY Final Result Performing Organization Address [facility] Co de Phone Number [facility] [address] [place] [address], * (ABNORMAL) URINALYSIS (02/28/2025 6:12 PM CDT) Only the most recent of4 resultswithin the time period is included. COLOR (U) YELLOW 02/28/2025 6:47 PM CDT [facility] TRANSPARENCY SLIGHTLY CLOUDY 02/28/2025 6:47 PM CDT [facility] SPECIFIC GRAVITY (U) 1.030(H) 1.000 - 1.025 02/28/2025 6:47 PM CDT [facility] Comment:EQUAL TO OR GREATER THAN U PH 6.0 5.0 - 8.0 02/28/2025 6:47 PM CDT [facility] LEUKOCYTES (U) NEGATIVE NEGATIVE 02/28/2025 6:47 PM CDT [facility] NITRITES NEGATIVE NEGATIVE 02/28/2025 6:47 PM CDT [facility] PROTEIN RANDOM (U) 1+(A) NEGATIVE 02/28/2025 6:47 PM CDT [facility] GLUCOSE (U) NEGATIVE NEGATIVE 02/28/2025 6:47 PM CDT [facility] KETONES MG/DL (U) 3+(A) NEGATIVE 02/28/2025 6:47 PM CDT [facility] UROBILINOGEN 0.2 <1.0 EU/DL 02/28/2025 6:47 PM CDT [facility] BILIRUBIN (U) NEGATIVE NEGATIVE 02/28/2025 6:47 PM CDT [facility] BLOOD (U) NEGATIVE NEGATIVE 02/28/2025 6:47 PM CDT [facility] WBC/HPF 0-5 0 - 5 /HPF 02/28/2025 6:47 PM CDT [facility] RBC/HPF 0-5 0 - 5 /HPF 02/28/2025 6:47 PM CDT [facility] EPI/LPF MANY /LPF 02/28/2025 6:47 PM CDT [facility] MUCUS PRESENT 02/28/2025 6:47 PM CDT [facility] URINE SPECIMEN OBTAINED BY CLEAN CATCH PROCEDURE / Unknown 02/28/2025 6:12 PM CDT us Fantasma Pedroza DO URINE ORDERABLES Final Resul t [facility] [address] [place] [address], * CORONAVIRUS (COVID-19) ANTIGEN (02/10/2025 9:53 AM CDT) CORONAVIRUS ANTIGEN IA NEGATIVE NEGATIVE 02/10/2025 10:41 AM CDT [facility] Comment: NEGATIVE RESULTS DO NOT [...] SPECIMEN TYPE NASAL 02/10/2025 9:56 AM CDT [facility] NASAL NASAL STRUCTURE / Unknown 02/10/2025 9:53 AM CDT us Kaitlin Colon MD MICROBIOLOGY - GENERAL JOSE CORONADO Final Result Performing Organization Address [facility] Co de Phone Number [facility] [address] [place] [address], * INFLUENZA A & B (02/10/2025 9:53 AM CDT) SPECIMEN TYPE (INFLUENZA) NASOPHARYNGEAL SWAB 02/10/2025 9:56 AM CDT [facility] INFLUENZA A NEGATIVE NEGATIVE 02/10/2025 10:41 AM CDT [facility] INFLUENZA B NEGATIVE NEGATIVE 02/10/2025 10:41 AM CDT [facility] Comment: A NEGATIVE RESULT DOES NOT EXCLUDE INFLUENZA VIRUS INFECTION. IF INFLUENZA IS CIRCULATING IN YOUR COMMUNITY, A DIAGNOSIS OF INFLUENZA SHOULD BE CONSIDERED BASED ON A PATIENT'S CLINICAL PRESENTATION AND EMPIRIC ANTIVIRAL TREATMENT SHOULD BE CONSIDERED IF INDICATED. NASOPHARYNGEAL SWAB / Unknown 02/10/2025 9:53 AM CDT us Kaitlin Colon MD MICROBIOLOGY - GENERAL JOSE CORONADO Final Result Performing Organization Address City/[facility]/ZIP Co de Phone Number [facility] [address] [place] [address], * (ABNORMAL) STREP A RAPID (02/10/2025 9:53 AM CDT) SPECIMEN SOURCE THROAT 02/10/2025 9:56 AM CDT [facility] RAPID STREP TEST POSITIVE(A) NEGATIVE 02/10/2025 10:38 AM CDT [facility] Comment: CALLED TO MATHEW DUFFY 1035 02/10/25 AFW READ BACK AND VERIFIED STRUCTURE OF ANTERIOR PORTION OF NECK / Unknown 02/10/2025 9:53 AM CDT Kaitlin Colon MD MICROBIOLOGY - GENERAL JOSE CORONADO Final Result [facility] [address] [place] [address], * XR CHEST PORTABLE (01/24/2025 1:48 PM CDT) Anatomical Region Laterality Modality Chest Radiographic Jazmin ging 01/24/2025 1:50 PM CDT Impressions 01/24/2025 1:51 PM CDT IMPRESSION: No significant change. No acute disease. Referred By: Interpreted By: Paulino Mitchell MD, 01/24/2025 1:50 PM Narrative 01/24/2025 1:51 PM CDT [place] [id number] [place] [address] Examination: Portable chest. Exam time: 1342 hours. Clinical history: Left-sided chest pain. Palpitations. Comparison: 05/18/2023. Technique: AP upright view. Findings: The cardiomediastinal silhouette is stable. The heart remains within normal limits for size. Pulmonary vascularity is within normal limits. The lungs and pleural spaces remain free of any active process. The visualized bony thorax is unremarkable. Procedure Note Paulino Mitchell MD - 01/24/2025 [place] [id number] [place] [address] Examination: Portable chest. Exam time: 1342 hours. [...] HCG TEST POSITIVE 01/24/2025 1:30 PM CDT [facility] SPECIFIC GRAVITY >1.030 01/24/2025 1:30 PM CDT [facility] URINE SPECIMEN FROM URETHRA / Unknown 01/24/2025 1:20 PM CDT us Salty Frost MD URINE ORDERABLES Final Resu lt [facility] [address] [place] [address], * TROPONIN, QUANT (01/24/2025 1:06 PM CDT) Only the most recent of3 resultswithin the time period is included. TROPONIN I HIGH SENSITIVITY 4 0 - 51 ng/L 01/24/2025 1:34 PM CDT [facility] 01/24/2025 1:06 PM CDT us Salty Frost MD LABORATORY Final Resul t [facility] [address] [place] [address], [place] [phone] * ECG 12 lead (01/24/2025 12:48 PM CDT) Only the most recent of2 resultswithin the time period is included. 01/24/2025 12:4 8 PM CDT Narrative [facility] - 01/24/2025 1:39 PM CDT [address] 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2000 Requested By: SALTY FROST Order Number: [id number] Fifi QUIGLEY: Logan Wong Measurements Intervals Andreas Rate: 79 P: 71 AK: 147 QRS: 52 QRSD: 80 T: 45 QT: 337 QTc: 388 Interpretive Statements SINUS RHYTHM us Salty Frost MD ECG ORDERABLES Final Resul t Performing Organization Address City/[facility] Co de Phone Number [facility] [place] [facility] * STRESS TEST (01/21/2025) us Doc Pccl Scanned SCANNING Final Result Performing Organization Address [facility] Co de Phone Number [facility] ONBASE * USV AKOSUA DUPLEX LOW EXT ADAM (01/18/2025 8:57 AM CDT) Anatomical Region Laterality Modality Extremity Ultrasound 01/18/2025 9:23 AM CDT Impressions 01/18/2025 9:24 AM CDT IMPRESSION: No evidence of deep venous thrombosis. Ordered By: SAMI MEHTA Interpreted By: Paulino Mitchell MD, 01/18/2025 9:23 AM Narrative 01/18/2025 9:24 AM CDT [address] [place] [address] Examination: Bilateral lower extremity venous color Doppler [...] Procedure Note Paulino Mitchell MD - 01/18/[address] [place] [address] Examination: Bilateral lower extremity venous color Doppler [...] 7:32 PM Narrative 01/17/2025 7:34 PM CDT [address] [place] [address] CTA CHEST WITH CONTRAST PULMONARY EMBOLISM PROTOCOL [...] Procedure Note German Chang MD - 01/17/[address] [place] [address] CTA CHEST WITH CONTRAST PULMONARY EMBOLISM PROTOCOL [...] - 500 ng{FEU}/mL 01/17/2025 6:10 PM CDT [facility] Comment: CALLED TO MATHEW DUFFY [...] Sami Luis F Laureenlaura LABORATORY Final Result [facility] [address] [place] [address], * US OB TRANSVAG (01/13/2025 6:37 PM [...] 5:28 PM Narrative 01/13/2025 5:39 PM CDT [facility] [address] [facility] [place] [address] EXAMINATION: US OB TRANSVAG HISTORY: Abdominal pain, [...] Procedure Note Taiwo Haddad MD - 01/13/2025 [place] [id number] [facility] [place] [address] EXAMINATION: US OB TRANSVAG HISTORY: Abdominal pain, [...] interstitialectopic gestation. Recommend close clinical follow-up and deejm-bzgfdipuag-[id number] ultrasound as discussed above. 2. Estimated gestational age by mean sac diameter is 5 weeks, 2 days. 3. No evidence of ovarian torsion. 4. Trace free pelvic fluid. Referred By: Interpreted By: Taiwo Haddad MD, 01/13/2025 5:28 PM Kaitlin Colon MD ULTRASOUND Final Resul t * TYPE AND SCREEN (01/13/2025 4:02 PM CDT) ABO/RH B POSITIVE 01/13/2025 4:56 PM CDT [facility] ANTIBODY SCREEN NEGATIVE 01/13/2025 4:56 PM CDT [facility] SAMPLE EXPIRATION 01/16/2025,2 359 01/13/2025 4:56 PM CDT [facility] 01/13/2025 4:02 PM CDT us Kaitlin Colon MD BLOOD BANK TEST ORDERABLES Final Result [facility] [address] [place] [address], * CULTURE URINE (01/13/2025 3:43 PM CDT) SPEC DESCRIPTION URINE CLEAN CATCH 01/13/2025 3:49 PM CDT [facility] SPECIAL REQUESTS NO SPECIAL REQUEST 01/13/2025 3:49 PM CDT [facility] CULTURE RESULT NO GROWTH (< OR = 1,000 CFU/ML) 01/15/2025 10:12 AM CDT [facility] URINE SPECIMEN OBTAINED BY CLEAN CATCH PROCEDURE / Unknown 01/13/2025 3:43 PM CDT 01/13/2025 3:51 PM CDT Kaitlin Colon MD MICROBIOLOGY - GENERAL JOSE CORONADO Final Result [facility] [address] [place] [address], [place] [phone] [facility] [address] [place] [address], [place] [phone] * (ABNORMAL) BASIC METABOLIC PANEL (01/13/2025 3:23 PM CDT) SODIUM S/P/B 136 136 - 145 MMOL/L 01/13/2025 4:22 PM CDT [facility] POTASSIUM S/P/B 3.6 3.5 - 5.1 MMOL/L 01/13/2025 4:22 PM CDT [facility] CHLORIDE S/P/B 101 98 - 107 MMOL/L 01/13/2025 4:22 PM CDT [facility] CO2 27.7 21.0 - 32.0 MMOL/L 01/13/2025 4:22 PM CDT [facility] GLUCOSE 106(H) 70 - 99 MG/DL 01/13/2025 4:22 PM CDT [facility] Comment: FASTING GLUCOSE 100 TO 125 MG/DL IS CONSISTENT WITH IMPAIRED FASTING GLUCOSE. FASTING GLUCOSE >125 MG/DL IS CONSISTENT WITH DIABETES. RANDOM GLUCOSE >200 MG/DL WITH HYPERGLYCEMIC SYMPTOMS IS CONSISTENT WITH DIABETES. PER ADA GUIDELINES BUN 11 6 - 24 MG/DL 01/13/2025 4:22 PM CDT [facility] CREATININE S/P/B 0.65 0.55 - 1.02 MG/DL 01/13/2025 4:22 PM CDT [facility] CALCIUM S/P/B 9.0 8.4 - 10.5 MG/DL 01/13/2025 4:22 PM CDT [facility] ANION GAP 7.3 5.0 - 15.0 MMOL/L 01/13/2025 4:22 PM CDT [facility] OSMOLALITY (CALC) 282 MOSM/KG 025 4:22 PM CDT [facility] Comment:REFERENCE RANGE NOT ESTABLISHED GFR ESTIMATE >90 >89 ML/MIN/1. 73 M2 01/13/2025 4:22 PM CDT [facility] GFR NOTES GFR REFERENCE S: 01/13/2025 4:22 PM CDT [facility] Comment: THE ESTIMATED GFR IS [...] Kaitlin Colon MD LABORATORY Final Resul t [facility] [address] [place] [address], from Last 3 Months Insurance FLOOD Care Teams [employer] Dip Tinning Supervisor Relationship Specialty Start Date End Date Tanner Paige MD [address] [facility] [place] [address] PCP - General FAMILY PRACTICE 07/01/24 Steph Hightower MD [address] [place] [address] Consulting Physician CARDIOVASCULAR DISEASE 11/07/22 Janell Celaya APNP [id number] [place] [phone] NURSE PRACTITIONER 12/01/24
--- OUTSIDE RECORDS SUMMARY | 2025-03-05 07:39 | XMS_ITS | Data Portability ---
Author Organization [facility] Address [address] [place] [address] Care Team Providers Care Hcc Coders Name Role Phone CARLOS ESTRADA Primary Care [...] obstetric , nuchal transluce ncy [address], [facility] [address], [place], [address], 03/03/2025 15:59:48 US, obstetric , transvagi nal [address], [facility] [address], [place], [address], 01/27/2025 22:04:56 Medication Orders sertralin e 50 mg tablet 2024 025 [facility] [address] , [place], [address], 03/02/2025 13:09:57 promethaz ine 25 mg tablet 2024 025 [facility] [address], [address] , [place], [address], 03/02/2025 13:26:21 Fioricet 50 mg-300 mg-40 mg capsule 2024 025 [email or web address] [facility] [address] , [place], [address], 02/05/2025 21:58:45 Patient TargetsNo targets recorded. Patient [...] as clini kentrell rosario nted. Not Available [facility] (Lab) [address], [place], [address], 02/01/2025 12:02:58 01/28/2001/27/2025 TRICH OMONA S VAGIN CATHI (RRNA ) trichomonas vaginalis ribosomal RNA (rrna) Negati ve negati ve Not Available [facility] (Lab) [address], [place], [address], 02/01/2025 12:02:58 01/28/2001/27/2025 CT/GC (JOHN) , THINP REP VIAL chlamydia trachomatis, PCR Negati ve negati ve Not Available [facility] (Lab) [address], [place], [address], 02/01/2025 12:02:59 01/28/20 25 01/27/2025 CT/GC (JOHN) , THINP REP VIAL neisseria gonorrhoeae, PCR Negati ve negati ve Not Available [facility] (Lab) [address] [facility], [place], [address], 02/01/2025 12:02:59 02/20/2002/19/2025 CBC W/DIF F WBC 11.0 10'3/ uL 3.5-10 .5 high Not Available [facility] (Lab) [address] [facility], [place], [address], 02/20/2025 13:00:55 02/20/20 25 02/19/2025 CBC W/DIF F RBC 4.38 10'6/ uL (based on docume nted legal sex) 3.80-5 .20 Not Available [facility] (Lab) [address] [facility], [place], [address], 02/20/2025 13:00:55 02/20/20 25 02/19/2025 CBC W/DIF F HGB 11.7 g/dL (based on docume nted legal sex) 11.6-1 5.4 Not Available [facility] (Lab) [address] [facility], [place], [address], 02/20/2025 13:00:55 02/20/20 25 02/19/2025 CBC W/DIF F HCT 36.4 % (based on docume nted legal sex) 34.0-4 5.0 Not Available [facility] (Lab) [address] [facility], [place], [address], 02/20/2025 13:00:55 02/20/20 25 02/19/2025 CBC W/DIF F MCV 83.1 fL 80.0-9 9.0 Not Available [facility] (Lab) [address] [facility], [place], [address], 02/20/2025 13:00:55 02/20/20 25 02/19/2025 CBC W/DIF F MCH 26.7 pg 27.0-3 4.0 low Not Available [facility] (Lab) [address] [facility], [place], [address], 02/20/2025 13:00:55 02/20/20 25 02/19/2025 CBC W/DIF F MCHC 32.1 g/dL 32.0-3 5.5 Not Available [facility] (Lab) [address] [facility], [place], [address], 02/20/2025 13:00:55 02/20/20 25 02/19/2025 CBC W/DIF F RDW 12.6 % 11.0-1 5.0 Not Available [facility] (Lab) [address] [facility], [place], [address], 02/20/2025 13:00:55 02/20/20 25 02/19/2025 CBC W/DIF F plt 350 10'3/ uL 150-40 0 Not Available [facility] (Lab) [address] [facility], [place], [address], 02/20/2025 13:00:55 02/20/20 25 02/19/2025 CBC W/DIF F MPV 10.2 fL 8.8-12 .1 Not Available [facility] (Lab) [address] [facility], [place], [address], 02/20/2025 13:00:55 02/20/20 25 02/19/2025 CBC W/DIF F neutrophils 72.9 % 34.0-7 3.0 Not Available [facility] (Lab) [address] [place], [address], 02/20/2025 13:00:55 02/20/20 25 02/19/2025 CBC W/DIF F lymphocytes 17.8 % 15.0-5 0.0 Not Available [facility] (Lab) [address] [facility], [place], [address], 02/20/2025 13:00:55 02/20/20 25 02/19/2025 CBC W/DIF F monocytes 7.5 % 1.0-15 .0 Not Available [facility] (Lab) [address] [facility], [place], [address], 02/20/2025 13:00:55 02/20/20 25 02/19/2025 CBC W/DIF F eosinophils 1.1 % 0.0-8. 0 Not Available [facility] (Lab) [address] [facility], [place], [address], 02/20/2025 13:00:55 02/20/20 25 02/19/2025 CBC W/DIF F basophils 0.4 % 0.0-2. 0 Not Available [facility] (Lab) [address] [facility], [place], [address], 02/20/2025 13:00:55 02/20/2002/19/2025 CBC W/DIF F immature granulocytes 0.3 % no define d refere nce range Immat ure Granu locyt es (IG) repre sents autom ated enume ratio n of Metam yeloc ytes, Myelo cytes and Promy elocy oni when IG is < 5%. Blast s are not inclu ded in IG and repor greg separ ately if prese nt. Not Available [facility] (Lab) [address] [facility], [place], [address], 02/20/2025 13:00:55 02/20/20 25 02/19/2025 CBC W/DIF F absolute neutrophils 8.0 10'3/ uL 1.5-8. 0 Not Available [facility] (Lab) [address] [facility], [place], [address], 02/20/2025 13:00:55 02/20/20 25 02/19/2025 CBC W/DIF F absolute lymphocytes 2.0 10'3/ uL 1.0-4. 0 Not Available [facility] (Lab) [address] [facility], [place], [address], 02/20/2025 13:00:55 02/20/20 25 02/19/2025 CBC W/DIF F absolute monocytes 0.8 10'3/ uL 0.2-1. 0 Not Available [facility] (Lab) [address] [facility], [place], [address], 02/20/2025 13:00:55 02/20/20 25 02/19/2025 CBC W/DIF F absolute eosinophils 0.1 10'3/ uL 0.0-0. 6 Not Available [facility] (Lab) [address] [facility], [place], [address], 02/20/2025 13:00:55 02/20/20 25 02/19/2025 CBC W/DIF F absolute basophils 0.0 10'3/ uL 0.0-0. 3 Not Available [facility] (Lab) [address] [facility], [place], [address], 02/20/2025 13:00:55 02/20/20 25 02/19/2025 CBC W/DIF [...] wright book. nm.or g/gen derx Not Available [facility] (Lab) [address] [facility], [place], [address], 02/20/2025 13:00:55 02/20/20 25 02/19/2025 HEPAT ITIS B SURFA CE ANTIG EN hepatitis B surface antigen Non-re active non-re active This assay was perfo rmed using [employer] ratio n reage nts and test kits. Value s obtai forrest with other assay metho ds or kits canno t be used inter chung eably . Not Available [facility] (Lab) [address] [facility], [place], [address], 02/20/2025 13:00:55 02/20/20 25 02/19/2025 HIV 1/2 ANTIG EN/AN TIBOD Y, REFLE X CONFI RMATI ON HIV antigen/anti body Nonrea ctive nonrea ctive HIV-1 antig en and HIV-1 /HIV- 2 antib odies were not detec greg. No labor atory evide nce of HIV infec tion. Not Available [facility] (Lab) [address] [facility], [place], [address], 02/20/2025 13:00:56 02/20/20 25 02/19/2025 HEPAT ITIS C ANTIB CLARIBEL SCREE N, REFLE X TO CONFI RMATI ON hepatitis C antibody Non-re active non-re active Antib odies to HCV Not Detec greg, does not exclu de the possi bilit y of expos ure to HCV. Not Available [facility] (Lab) [address] [facility], [place], [address], 02/20/2025 13:00:56 02/20/2002/19/2025 T4 FREE T4, free 0.92 NG/dL 0.60-1 .40 This assay is susce ptibl e to inter feren ce from high level s of bioti n which may false ly eleva te resul ts. Pleas e corre late with clini gonsalo findi ngs. Not Available [facility] (Lab) [address] [facility], [place], [address], 02/20/2025 13:00:56 02/20/20 25 02/19/2025 TSH, REFLE X FREE T4 TSH 0.03 uIU/m L 0.30-5 .33 low Not Available [facility] (Lab) [address] [facility], [place], [address], 02/20/2025 13:00:56 02/20/20 25 02/19/2025 RUBEL LA IGG ANTIB CLARIBEL, QUANT rubella antibodies, IgG Reacti ve reacti ve Not Available [facility] (Lab) [address] [facility], [place], [address], 02/20/2025 13:00:57 02/20/20 25 02/19/2025 RUBEL LA IGG ANTIB CLARIBEL, QUANT rubella antibodies, IgG quant 35.4 IU/mL >=10 Non-r eacti ve (Non- Immun e) <10 IU/mL React angel (Immu ne) > or = 10 IU/mL Not Available [facility] (Lab) [address] [facility], [place], [address], 02/20/2025 13:00:57 02/20/20 25 02/19/2025 TYPE/ RH/SC REEN ABO/Rh type B POS Not Available [facility] (Lab) [address] [facility], [place], [address], 02/20/2025 13:00:57 02/20/20 25 02/19/2025 TYPE/ RH/SC REEN antibody screen NEG Not Available [facility] (Lab) [address] [facility], [place], [address], 02/20/2025 13:00:57 02/20/20 25 02/19/2025 TYPE/ RH/SC REEN exp date 2024 23:59 Not Available [facility] (Lab) [address] [facility], [place], [address], 02/20/2025 13:00:57 02/20/20 25 02/19/2025 HEMOG LOBIN [...] oni >=6.5 % Diagn ostic of diabe noi <7.0% Goal of thera py >8.0% Actio n sugge sted Not Available [facility] (Lab) [address] [facility], [place], [address], 02/20/2025 13:00:57 02/20/20 25 02/19/2025 RPR SCREE N, REFLE X TITER /CONF IRMAT ION RPR qualitative Nonrea ctive nonrea ctive Not Available [facility] (Lab) [address] [facility], [place], [address], 02/20/2025 13:00:58 03/02/20 25 03/02/2025 CULTU RE: URINE result report SEE RESULT S BELOW Test: Cultu re: Urine Speci men Sourc e: Urine - Clean Catch Speci men Type: Urine Speci men Date: 1455 Resul t Date: 2137 Resul t Statu s: Final resul t Abnor mal: No Resul ting Lab: [facility] [address] [facility] [address] Tel: CULTU RE ----- ----- ----- --- No growt h in 1 day (dete ction level of 10,00 0 colon ies / ml.) Not Available [facility] (Lab) [address] [facility], [place], [address], 03/03/2025 22:42:27 01/15/20 25 01/14/2025 US, zonia s No observ ation record ed. [email or web address] [address], [place], [address], 01/14/2025 22:26:54 01/15/20 25 01/14/2025 US, obste tric, trans vagin al No observ ation record ed. [email or web address] [address], [place], [address], 01/14/2025 13:55:51 01/28/20 25 01/27/2025 US, obste tric, trans vagin al No observ ation record ed. [address], [place], [address], 01/27/2025 18:32:06 01/28/20 25 01/27/2025 US, obste tric, trans vagin al No observ ation record ed. [email or web address] [address], [place], [address], 01/27/2025 22:14:08 02/20/20 25 02/19/2025 lab* No observ ation record ed. [email or web address] [place] [address] [address], [place], [address], 02/22/2025 23:13:52 02/27/20 25 02/26/2025 US, obste tric, limit ed No observ ation record ed. [address], [place], [address], 03/01/2025 11:32:53 02/27/20 25 02/26/2025 US, obste tric, limit ed No observ ation record ed. [address], [place], [address], 03/01/2025 11:33:10 03/02/20 25 03/02/2025 US, obste tric, nucha l trans lucen cy No observ ation record ed. [email or web address] [address], [place], [address], 03/02/2025 13:35:30 03/02/20 25 03/02/2025 US, obste tric, nucha l trans lucen cy No observ ation record ed. [email or web address] [address], [place], [address], 03/03/2025 14:08:39 Result Notes None recorded. Problems Name Problem SNOMED Code Status Onset Date Resolution Date Notes Provider Name and Address Organization Details Recorded Time Gestatio n period, 37 weeks 23066406 Completed 201907/05/2021 37 weeks gestatio n of pregnanc y;Record ed Elsewher e: No Locat ion: [facility] S ource: EHR Jewel Hole Driller yvrose: N Practi ce ID: [id number] Gigi lable Time: 09:00:00 AM Karina ramos [facility] 10:15:[address] Concept Completed 201907/05/2021 Matern care for abnlt fetl hrt rate or rhym, 3rd tri, unsp;Rec orded Elsewher e: No Locat ion: [facility] S ource: EHR Jewel Hole Driller yvrose: N Practi ce ID: [id number] [email or web address] lable Time: 08:45:00 AM Karina ramos [facility] 10:15:29 Gestatio nal diabetes mellitus 78622377 Completed 201907/05/2021 Gestatio nal diabetes mellitus in pregnanc y, diet controll ed;Recor ded Elsewher e: No Locat ion: [facility] S ource: EHR Jewel Hole Driller yvrose: N Practi ce ID: [id number] Gigi lable Time: 11:45:00 AM Karina ramos [facility] 10:15:25 Gestatio n period, 38 weeks [id number] Completed 201907/05/2021 38 weeks gestatio n of pregnanc y;Record ed Elsewher e: No Locat ion: [facility] S ource: EHR Jewel Hole Driller yvrose: N Practi ce ID: [id number] Gigi lable Time: 11:30:00 AM Karina ramos [facility] 1 10:15:13 Normal pregnanc y in multigra jessy [id number] 21547 Completed 201907/05/2021 Encounte r for supervis ion of other normal pregnanc y, 3rd trimeste r;Record ed Elsewher e: No Locat ion: [facility] S ource: EHR Jewel Hole Driller yvrose: N Practi ce ID: [id number] Gigi lable Time: 10:45:00 AM Karina ramos, [facility] 1 10:15:27 Amenorrh ea 96087963 Completed 202007/10/2021 Tammi ramos, [facility] 1 13:08:35 Pregnanc y 40995722 Completed 202003/29/2022 Karina ramos, [facility] 4 11:00:49 Hypereme sis 933784935 Completed phenerga n now prn Asiaamadeo Baileyrafakandykhris arias [facility] 2 16:43:51 Anxiety in pregnanc y 2604463506 9109 Completed will continue to monitor Asia Luis ramos [facility] 2 16:43:51 Past pregnanc y history of gestatio nal diabetes mellitus 307069555 Completed Early 1 hr GTT @ 20wks 11/03 APPT Asia Luis arias [facility] 2 16:43:51 Spinal muscular atrophy 2093902 Completed Carrier - Not in contact with FOB. Asia ramos [facility] 2 16:43:51 Pregnanc y 41760105 Completed 202304/22/2024 Karina ramos, [facility] 4 11:00:49 Anxiety 75589193 Completed prozac Karina ramos, [facility] 4 11:00:46 Nausea 161284183 Completed d/c zofran pump 11/08 per pt request Karina ramos, [facility] 4 11:00:46 Postpart um hemorrha ge 36039563 Completed 2017 with d&c Karina ramos, [facility] 4 11:00:46 Headache 00013345 Active 2023 Karina ramos, [facility] 5 16:19:28 Pregnanc y 44564882 Active 2023 Karina Burroughs [facility], [facility] 5 16:19:28 Uncompli cated moderate persiste nt asthma 971391482 Active 2024 albutero l prn Shawn Bradley MD [address], [place], [address], [facility] 5 13:08:36 Anxiety 28924261 Active 2024 sertrali ne started 03/02/25 Shawn Bradley MD [address], [place], [address], [facility] 5 13:09:23 Nausea and vomiting 49816780 Active 2024 Shawn Bradley MD [address], [place], [address], [facility] 5 13:20:27 Notes:[facility] for P[facility] line, and home health already caring for pt. Vladimir RDZ at [phone] Problem Notes None recorded. Procedures Surgical History Date Name Laterality Status Provider Name and Address Organization Details Recorded Time 5 Date of Last Pap Smear completed Karina Burroughs [facility] 01/28/2025 11:19:42 4 Nexplanon Removal completed Shawn Bradley MD [address], [place], [address], [facility] 08/05/2024 15:09:58 4 Control Implant Insertion completed Anju Mcnamara CNM [address], [place], [address], [facility] 05/08/2024 17:59:34 8 Dilation and Curettage completed Karina Burroughs [facility] 07/05/2021 10:17:50 Imaging Results Imaging Date Name Status LastModified by Organization Details LastModified Time 01/14/2025 US, pelvis completed [email or web address] [address], [place], [address], 01/14/2025 22:26:54 01/14/2025 US, obstetric, transvaginal completed [email or web address] [facility] [address], [place], [address], 01/14/2025 13:55:51 01/27/2025 US, obstetric, transvaginal completed [email or web address] [facility] [address], [place], [address], 01/27/2025 18:32:06 01/27/2025 US, obstetric, transvaginal completed [email or web address] [address], [place], [address], 01/27/2025 22:14:08 02/19/2025 lab* completed [address], [place], [address], 02/22/2025 23:13:52 02/26/2025 US, obstetric, limited completed [address] [facility] [address], [place], [address], 03/01/2025 11:32:53 02/26/2025 US, obstetric, limited completed [address], [place], [address], 03/01/2025 11:33:10 03/02/2025 US, obstetric, nuchal translucency completed [email or web address] [facility] [address], [place], [address], 03/02/2025 13:35:30 03/02/2025 US, obstetric, nuchal translucency completed [email or web address] [address], [place], [address], 03/03/2025 14:08:39 Procedure Notes None recorded. Medical Equipment None Reported. Allergies Allergen ID Allergen Name Allergen Category Reaction Reaction Severity Criticality Documentation Date Start Date Code Code System Note Provider Name and Address Organization Details Recorded Time 95460 terbutali ne medicatio n anaphylax is Not available Not available 01/27/20252021 59065 RxNorm Karina Burroughs [facility] 16:19:27 Medications Name Sig Start Date [...] on HCl 4 mg/5 mL oral solution 2024 active Not Available Not Available Not Avai lable amitripty line 10 mg tablet TAKE 1 [...] Prescrib ed Elsewher e: Yes Loca tion: [facility] odify By: prabhjot Lee r DateTime [...] n (supplie d by office) insert lot [id number] Exp 01/2026 Not Available Not Available Not Available 28 mg iron-800 mcg tablet 07/05 completed Prescrib ed Elsewher e: Yes [facility] By: prabhjot Lee r DateTime : [...] Updated DateTime 01/27/2025 162.56 cm 27.8 kg/m2 37857.96 g 115 mm[Hg] 74 mm[Hg] Karina Burroughs [facility] 5 16:19:09 Date Recorded Body height Body mass index (BMI) Body weight Systolic blood pressure Diastolic blood pressure Provider Name and Address Organization Details Last Updated DateTime 02/04/2025 162.56 cm 28.2 kg/m2 95333.15 g 113 mm[Hg] 72 mm[Hg] [facility] 10:24:20 Date Recorded Body height Body mass index (BMI) Body weight Systolic blood pressure Diastolic blood pressure Provider Name and Address Organization Details Last Updated DateTime 03/02/2025 162.56 cm 27.1 kg/m2 36224.59 g 116 mm[Hg] 81 mm[Hg] Melyssa [facility] 12:59:17 Social History Question Answer Notes LastModified by Organizat ion Details LastModified Time Tobacco Smoking Status Former Smoker Karina Burroughs [facility] 07/05/2021 09:06:21 What Is Your Level Of Alcohol Consumption? Occasional [email or web address] Information not available 07/05/2021 If You Are , What Was Your Level Of Alcohol Consumption Prior To ? None [email or web address] Information not available 07/05/2021 Are You Blind Or Do You Have Difficulty Seeing? No [email or web address] Information not available 07/05/2021 What Is Your Level Of Caffeine Consumption? Heavy [email or web address] Information not available 07/05/2021 In The 14 Days Before Symptom Onset, Have You Had Close Contact With A Laboratory-confir med COVID-19 While That Case Was Ill? No [email or web address] Information not available 07/05/2021 In The 14 Days Before Symptom Onset, Have You Had Close Contact With A Person Who Is Under Investigation For COVID-19 While That Person Was Ill? No [email or web address] Information not available 07/05/2021 Have You Been To An Area Known To Be High Risk For COVID-19? No [email or web address] Information not available 07/05/2021 Are You Deaf Or Do You Have Serious Difficulty Hearing? No Information not available 07/05/2021 What Type Of Diet Are You Following? REGULAR [email or web address] Information not available 07/05/2021 Which Illicit Or Recreational Drugs Have You Used? Marijuana [email or web address] Information not available 07/05/2021 Do You Or Have You Ever Used E-cigarettes Or Vape? Current User Of Electronic Cigarettes [email or web address] Information not available 07/05/2021 Have You Ever Been Counseled For Unhealthy Alcohol Use? No [email or web address] Information not available 07/05/2021 Do You Use Your Seat Belt Or Car Seat Routinely? Yes [email or web address] Information not available 07/05/2021 Do You Have Smoke And Carbon Monoxide Detectors In Your Home? Yes [email or web address] Information not available 07/05/2021 Do You Or Have You Ever Used Smokeless Tobacco? Never Used Smokeless Tobacco [email or web address] Information not available 07/05/2021 Do You Feel Stressed (tense, Restless, Nervous, Or Anxious, Or Unable To Sleep At Night)? [id number] [email or web address] Information not available 07/05/2021 Do You Use Any Illicit Or Recreational Drugs? Yes [email or web address] Information not available 07/05/2021 Do You Use Sunscreen Routinely? Yes Information not available 07/05/2021 Has Tobacco Cessation Counseling Been Provided? No [email or web address] Information not available 07/05/2021 Have You Used IV Drugs? No [email or web address] Information not available 07/05/2021 Do You Or Have You Ever Used Any Other Forms Of Tobacco Or Nicotine? Yes [email or web address] Information not available 07/05/2021 Sex: Unknown Functional Status Question Answer Note LastModified by Organizat ion Details LastModified Time Do you have difficulty walking or climbing stairs? No Information not available 12/06/2021 Are you able to walk? YESWOREST [email or web address] Information not available 07/05/2021 Are you able to care for yourself? Yes [email or web address] Information not available 12/06/2021 Do you have difficulty dressing or bathing? No [email or web address] Information not available 12/06/2021 What is your exercise level? Occasional [email or web address] Information not available 07/05/2021 Mental Status None recorded. Family History Relationship Description Onset Age of this Age Resolved Age Notes LastModified by Organization Details LastModified Time Father No current problems or disability [email or web address] Not available 05/2021 09:06:31 Mother No current problems or disability [email or web address] Not available 05/2021 09:06:31 Medical History Condition [...] SNOMED-CT Code Diagnosis ICD10 Code Diagnosis Note [id number] Anju Mcnamara [facility] [address],[place] [address] 07/05/2021 09:58:05 07/05/2021 11:16:35 Pityriasis versicolor 31432907 B36.0 also wash with selsum blue shampoo Vaginitis 72576826 N76.0 Nausea 379251523 R11.0 Contracept ion care management 288020288 Z30.9 18638 Betsey Joya [facility] [address],[place] [address] 08/02/2021 10:30:44 08/04/2021 10:07:43 Severe hyperemesis gravidarum 328862533 O21.1 Pt has not held anything down for more than 24 hours. Sent to ER for hydration and evaluation . We have discussed dietary precaution s. Recommend very small frequent meals. Avoid greasy, spicy or trigger foods. I do believe she may benefit from home health for fluids and IV antiemetic s. [id number] Anju Mcnamara [facility] [address],[place] [address] 08/08/2021 10:22:11 08/08/2021 13:42:05 Depressive disorder 30082232 F32.A in an emergency mercy info given and kettler reminder, if increased thoughts or plan to hospital for immediate care, pt agrees, continue counseling , will try lexapro once can keep down fluids, se reviewed Gynecologi c examination 41332426 Z01.419 Z11.3 Z11.8 Amenorrhea 97644762 N91. 2 plan NOB and first look Nausea and vomiting 1693 1999 R11.2 unable to leave urine, unable at this time to go to LD, encouraged to go to LD for hydration, working on home health services, [id number] Shawn Bradley MD [facility] [address] [address] 08/08/2021 10:21:08 08/08/2021 10:53:33 Routine care 994894619 Z34.91 Z3A.08 [id number] Anju Mcnamara [facility] [address],[place] [address] 09/13/2021 14:51:52 09/14/2021 13:44:23 test positive 484238324 Z32.01 Routine an tenatal care 177534028 Z34.91 [id number] Shawn Bradley MD [facility] [address],[place] [address] 09/13/2021 15:35:32 09/13/2021 16:26:27 screening 558754898 Z36.82 [id number] Betsey Joya [facility] [address],[place] [address] 10/09/2021 12:26:15 10/09/2021 17:39:00 Urinary symptoms 347870251 R39.9 Fatigue 45499765 R53.83 Venereal d isease screening 068280316 Z11.3 42304 Anju Mcnamara [place] [address],[place] [address] 10/16/2021 11:57:23 10/16/2021 12:48:11 Routine care 980925047 Z34.91 [id number] Anju Mcnamara [facility] [address],[place] [address] 11/03/2021 11:32:21 11/03/2021 13:52:13 Routine care 612552681 Z34.91 [id number] Shawn Bradley MD [facility] [address],[place] [address] 11/03/2021 11:31:37 11/03/2021 12:34:34 screening for malformation 374284385 Z36.3 [id number] Anju Mcnamara [facility] [address],[place] [address] 12/06/2021 14:46:58 12/06/2021 16:07:59 Routine care 622722475 Z34.91 Iron defic iency anemia 79998870 D50.9 [facility] 26181171 F41.9 [id number] Shawn Bradley MD [facility] [address],[place] [address] 12/06/2021 14:46:10 12/06/2021 15:18:30 condition affecting obstetrical care of mother 444761377 O35.8XX0 Z3A.25 [id number] Anju Mcnamara [facility] [address],[place] [address] 12/22/2021 11:04:34 12/22/2021 11:32:13 Routine care 982441118 Z34.91 [id number] Shawn Bradley MD [facility] [address],[place] [address] 01/03/2022 14:21:04 01/03/2022 15:48:26 Uterine size for dates discrepancy 481316033 O26.843 Z3A.29 13618 Anju Mcnamara [facility] [address],[place] [address] 01/03/2022 14:21:33 01/03/2022 15:13:41 Routine care 002490641 Z34.91 [id number] Anju Mcnamara [facility] [address],[place] [address] 01/17/2022 16:53:11 01/17/2022 17:24:14 Routine care 738463826 Z34.91 Persistent cough 4577500 02 R05.3 [id number] Betsey Joya [facility] [address],[place] [address] 02/06/2022 09:22:49 02/06/2022 09:55:25 Routine care 530745631 Z34.93 [id number] Shawn Bradley MD [facility] [address],[place] [address] 02/13/2022 14:43:16 02/13/2022 15:26:49 Poor growth affecting management 553897522 O36.5930 Z3A.35 [id number] Anju Mcnamara [facility] [address],[place] [address] 02/16/2022 15:13:14 02/16/2022 15:58:27 Routine care 148014551 Z34.91 [id number] Anju Mcnamara [facility] [address],[place] [address] 03/02/2022 15:02:03 03/02/2022 15:28:58 Routine care 196931159 Z34.91 [id number] BOLA Miller [facility] [address],[place] [address] 03/27/2022 10:37:37 03/27/2022 11:14:18 Mixed anxiety and depressive disorder 681568401 F41.8 Chest pain 96485192 R07. 9 She has a hx of [...] treatment for anxiety/de pression.Bianca peng has a national dedicated truck driver that will take her to [place] ED (vitals are WNL, no acute distress noted).She has no thoughts of harming herself or others.She will call the office to schedule an appointmen t to be seen after ED evaluation . We discussed at that time can start therapy for depression /anxiety. RTC after cleared by ED Time spent with the patient was 20 minutes [id number] Shawn Bradley MD [facility] [address],[place] [address] 04/16/2022 15:11:58 04/16/2022 17:11:09 Mixed anxiety and depressive disorder 819730016 F41.8 this patient is a 22-year-ol d [...] ce. More than 50% was counseling . [id number] Shawn Bradley MD [facility] [address],[place] [address] 04/16/2022 16:43:28 04/16/2022 17:34:26 Abnormal uterine bleeding 9462991717 9100 N93.9 [id number] BOLA Miller [facility] [address],[place] [address] 06/19/2022 17:24:32 06/19/2022 18:03:44 Abnormal uterine bleeding 1687619376 9100 N93.9 We discussed likely spotting is [...] of plan of care. Pain in pelvis 78908293 R10.2 Contracept ion care management 608662114 Z30.9 Irregular periods 522627 07 N92.6 Venereal d isease screening 126505935 Z11.3 Anxiety 58148877 F41.9 [id number] Shawn Bradley MD [facility] [address],[place] [address] 10/02/2023 13:44:25 10/02/2023 14:07:54 screening 833871295 Z36.82 Z36.87 Z3A.11 [id number] Anju Mcnamara [facility] [address],[place] [address] 10/02/2023 13:46:45 10/02/2023 14:50:25 Amenorrhea 95565110 N91.2 plan NOB and first look NIPT and labs todaywants tubal ligation after delivery Gynecologi c examination 63759540 Z01.419 Z11.3 Z11.8 Nausea and vomiting 1693 2000 R11.2 [id number] [facility] [address],[place] [address] 11/01/2023 11:17:59 11/01/2023 13:01:44 Gestation period, 16 weeks 04762209 Z3A.16 Anxiety 44770761 F41.9 [id number] Shawn Bradley MD [facility] [address],[place] [address] 11/27/2023 14:04:37 11/27/2023 15:16:15 screening for malformation 688424420 Z36.3 Z3A.19 [id number] Anju Mcnamara [facility] [address],[place] [address] 11/27/2023 14:13:33 11/27/2023 15:31:00 Routine care 142211536 Z34.91 [id number] [facility] [address],[place] [address] 12/25/2023 14:51:56 12/25/2023 15:52:45 Routine care 888642241 Z34.91 [id number] Anju Mcnamara [facility] [address],[place] [address] 02/14/2024 14:13:14 02/14/2024 16:07:12 Routine care 432946963 Z34.91 [id number] Anju Mcnamara [facility] [address],[place] [address] 1 03/27/2024 11:47:21 03/27/2024 12:30:07 Routine care 738772576 Z34.91 [id number] Anju Mcnamara [facility] [address],[place] [address] 05/08/2024 14:54:41 05/11/2024 09:00:41 Screening procedure 16989896 Z13.9 Implantati on of subcutaneous contraceptive 089905852 Z30.46 reviewed se risks and benefits, bandage until skin closes, pressure bandage x 24 hourswill schedule bilateral salpingect kateryna with dr. bradley care 75260977 8 Z39.2 continue multivitam in Sterilizat ion requested 986020107 Z30.2 [id number] Shawn Bradley MD [facility] [address],[place] [address] 08/05/2024 13:57:53 08/05/2024 15:11:54 Contraception care management 722694561 Z30.9 Nexplanon removed without complicati ons. She tolerated well. [id number] MD Shun Galarza [address],[place] [address] 01/14/2025 11:51:17 01/14/2025 12:53:24 Uncertain viability of 628311864 Z3A.01 [id number] Shawn Bradley MD [facility] [address],[place] [address] 01/14/2025 11:51:38 01/15/2025 09:38:25 Pain in pelvis 87455272 R10.2 25-year-ol d female presents for ER [...] care. She will return in 2 weeks. [id number] Shawn Bradley MD [facility] [address],[place] [address] 01/27/2025 14:42:15 01/27/2025 15:35:58 Abdominal pain in 693496027 O99.891 Z3A.01 [id number] Shawn Bradley MD [facility] [address],[place] [address] 01/27/2025 14:55:24 01/27/2025 16:41:41 Amenorrhea 26001569 N91.2 Z32.01 this patient is a 25-year-ol [...] begin routine care at her next visit. [id number] Shawn Bradley MD [facility] [address],[facility] [place] [address] 02/04/2025 10:09:23 02/04/2025 10:48:21 Headache 25239636 R51.9 Nausea and vomiting 1693 1999 R11.2 25-year-ol d female with severe nausea, 8 weeks gestation, hyperemesi s gravidarum . Patient states Zofran is not working anymore. She is unable to keep liquids down. We talked about various treatment options in detail. Spent over 20 minutes face-to-fa ce with the patient and on her care in total. We agreed to send to labor and delivery for IV fluids. [id number] Shawn Bradley MD [facility] [address] [address] 03/02/2025 12:17:19 03/02/2025 12:53:50 screening 343720848 Z36.82 Z3A.11 [id number] Shawn Bradley MD [facility] [address] [address] 03/02/2025 12:17:40 03/02/2025 15:40:54 Anxiety 31943934 F41.9 care status 24 6941042 Z34.81 Health Concerns Section Related Observation LastModified by Organization Detai ls LastModified Time None Recorded Concern Status LastModified by Organization Details LastModified Time None Recorded Advance Directives Directive None Recorded Payers Encounter Date Sequence Insurance Name Policy Number Policy Roberts Covered Member ID Roberts Member ID Guarantor Name 01/27/2025 1 [employer] [place] ([place] [id number] Yuni Brown [id number] Yuni Brown 01/27/2025 1 [employer] [place] [id number] Yuni Brown [id number] Yuni Brown 02/04/2025 1 [employer] [place] [id number] Yuni Brown [id number] Yuni Brown 03/02/2025 1 [employer] [place] [id number] 0003 Yuni Brown [id number] Yuni Brown 03/02/2025 1 [employer] [place] [id number] Yuni Brown [id number] Yuni Brown Notes Date Note Type Note [...] She was given recommendations on exercise, diet, dvui-tvh-icjhynl medications. We reviewed her obstetric history. We reviewed her medical history. We reviewed her social history. She will begin routine care at her next visit. Shawn Bradley MD [address], [place], [address], [facility] 01/27/2025 16:36:44 02/04/2025 text/html 25-year-old neal lane with severe nausea, 8 weeks gestation, hyperemesis gravidarum. Patient states Norah is not working anymore. She is unable to keep liquids down. We talked about various treatment options in detail. Spent over 20 minutes nrff-rt-yuse with the patient and on her care in total. We agreed to send to labor and delivery for IV fluids. Shawn Bradley MD [address], [place], [address], [facility] 02/04/2025 10:46:36 OBGyn Episode Ob Episode Information Episode Created Date Number of Fetuses Patient Bloodtype Patient rh Status Prepregnancy Weight lbs Domestic Partner Domestic Partner Phone Father Name Non Destructive Evaluation Specialist Status 03/14/20 20 1 CLOSED Fetus Data [...] Domestic Partner Domestic Partner Phone Father Name Non Destructive Evaluation Specialist Status 07/05/20 21 1 CLOSED Fetus Data First Name Last Name Admitted to NICU Weight (g) Sex Living Outcome Pediatric Complications Fetus ID Race Codes Race Delivery Type , Spontane ous 34283 Jun Calculation Initial Jun Date Initial Exam [...] Domestic Partner Domestic Partner Phone Father Name Non Destructive Evaluation Specialist Status 09/13/20 21 1 B Positive 103 diontre silva CLOSED Fetus Data First Name Last Name Admitted to NICU Weight (g) Sex Living Outcome Pediatric Complications Fetus ID Race Codes Race Delivery Type 3316.89 15 F true Full Term terminal meconium 05956 Vaginal Delivery Problems Problem Notes EIF in [place] noted03/05 PIH WNL, UC WNL Problem Name Start Date End Date Resolution Snomed Code Not e Spinal muscular atrophy 6777693 Carrier - Not i n contact with FOB. Past history of gestational diabetes mellitus 450813924 Early 1 hr GTT @ 20wks 11/03 APPT Hyperemesis 633771216 phenerga n now prn Anxiety in 655624887 [address] will continue to monitor Jun Calculation Initial [...] Date Ultra Sound Latest Days Gestation 0 [id number] 09/14/2021 03/16/20 22 0 Pre-fabiola Flowsheet Flowsheet [...] Weight in lbs Pre/Post Dialysis Refused Weight 110.062978170579 BP Diastolic BP Location Tested BP Systolic [...] Weight in lbs Pre/Post Dialysis Refused Weight 119.208705270442 BP Diastolic BP Location Tested BP Systolic [...] Weight in lbs Pre/Post Dialysis Refused Weight 120.580960237578 BP Diastolic BP Location Tested BP Systolic [...] Weight in lbs Pre/Post Dialysis Refused Weight 124.761566194886 BP Diastolic BP Location Tested BP Systolic [...] Weight in lbs Pre/Post Dialysis Refused Weight 137.221132624839 BP Diastolic BP Location Tested BP Systolic [...] Weight in lbs Pre/Post Dialysis Refused Weight 145.0343146143 BP Diastolic BP Location Tested BP Systolic [...] Weight in lbs Pre/Post Dialysis Refused Weight 152.334988415276 BP Diastolic BP Location Tested BP Systolic [...] Weight in lbs Pre/Post Dialysis Refused Weight 150.763137522598 BP Diastolic BP Location Tested BP Systolic [...] Weight in lbs Pre/Post Dialysis Refused Weight 157.667957894395 BP Diastolic BP Location Tested BP Systolic [...] Weight in lbs Pre/Post Dialysis Refused Weight 158.997805972947 BP Diastolic BP Location Tested BP Systolic [...] Weight in lbs Pre/Post Dialysis Refused Weight 163.900186798745 BP Diastolic BP Location Tested BP Systolic [...] Weight in lbs Pre/Post Dialysis Refused Weight 134.390357532412 BP Diastolic BP Location Tested BP Systolic [...] At Estimated Date of Delivery false Thalassemia (Eritrean, Wallisian, Mediterranean, Or Background): MCV < 80 false Neural Tube Defect (Meningom yelocele, Spina Bifida, Or Anencephaly) false Congenital Heart Defect false Down Syndrome false Erick-Sachs (eg, Evangelical, Cajun, Lithuanian-Lao) f alse Lizzette Disease false Sickle Cell Disease Or Trait () false Hemophilia Or Other Blood Disorders false Muscular Dystrophy false Cystic Fibrosis false Flathead's Chorea false Intellectual Disability/Autism false If Yes, [...] Domestic Partner Domestic Partner Phone Father Name Non Destructive Evaluation Specialist Status 07/05/20 21 1 CLOSED Fetus Data First Name Last Name Admitted to NICU Weight (g) Sex Living Outcome Pediatric Complications Fetus ID Race Codes Race Delivery Type 3175.14 4 F Full Term 39566 Vaginal Delivery Ujn Calculation Initial Jun Date [...] Domestic Partner Domestic Partner Phone Father Name Non Destructive Evaluation Specialist Status 11/01/19 24 1 B Positive 126 L[address]ja Wand CLOSED Fetus Data First Name Last Name Admitted to NICU Weight (g) Sex Living Outcome Pediatric Complications Fetus ID Race Codes Race Delivery Type 3401.94 M true Full Term 34604 Vaginal Delivery Problems Problem Notes gallbladder attack/pain - re ferral to Gen Surg Dr. Boles sent 11/08- pt never went because pain stopped Problem Name Start Date End Date Resolution Snomed Code Not e Anxiety 75740501 prozac Nausea 669409246 d/c zofran pump 11/08 per pt request hemorrhage 74171878 hx of - 2017 with d&c Jun Calculation Initial Jun [...] Weight in lbs Pre/Post Dialysis Refused Weight 130.980148281932 BP Diastolic BP Location Tested BP Systolic [...] Weight in lbs Pre/Post Dialysis Refused Weight 136.447946046549 BP Diastolic BP Location Tested BP Systolic [...] Weight in lbs Pre/Post Dialysis Refused Weight 144.471341578766 BP Diastolic BP Location Tested BP Systolic [...] Weight in lbs Pre/Post Dialysis Refused Weight 154.188592042663 BP Diastolic BP Location Tested BP Systolic [...] Weight in lbs Pre/Post Dialysis Refused Weight 157.785328530810 BP Diastolic BP Location Tested BP Systolic [...] Sterilization Discharge Date Comments 4 27.2 Anju McnamaraM 04/11/2024 limited care Discharge Information Feeding Method Contraceptive Method Maternal HG B and HCT Levels Ob Episode Information Episode Created Date Number of Fetuses Patient Bloodtype Patient rh Status Prepregnancy Weight lbs Domestic Partner Domestic Partner Phone Father Name Non Destructive Evaluation Specialist Status 03/02/20 1 B Positive 164 OPEN Fetus Data First Name Last Name Admitted to NICU Weight (g) Sex Living Outcome Pediatric Complications Fetus ID Race Codes Race Delivery Type 57401 Problems Problem Notes Problem Name Start Date End Date Resolution Snomed Code Not e Uncomplicated moderate persistent asthma 03/02/2025 191168605 albuterol prn Nausea and vomiting 03/02/2025 99855338 Anxiety 03/02/2025 69062899 sertralin e started 03/02/25 Jun Calculation Initial [...] Weight in lbs Pre/Post Dialysis Refused Weight 158.543694414904 BP Diastolic BP Location Tested BP Systolic [...]
--- NOTE | 2025-03-26 08:24 | PM.OBTRLD ---
OB - Triage/Final Diagnosis Visit Information Comments/Additional reasons for admission: I have assessed the risk for this patient, Yuni Mejia, and determined that she would benefit from observation care. Evaluation Laboratory results: Laboratory Tests 03/03/25 21:42 WBC 11.9 H RBC 4.16 L Hgb 11.2 L Hct 34.6 L MCV 83.2 MCH 26.9 MCHC 32.4 RDW 12.4 Plt Count 315 MPV 9.4 Immature Gran % (Auto) 0.4 Neut % (Auto) 72.0 Lymph % (Auto) 18.8 [place] % (Auto) 7.7 Eos % (Auto) 0.8 Baso % (Auto) 0.3 Lymph # (Auto) 2.23 [place] # (Auto) 0.9 H Eos # (Auto) 0.1 Baso # (Auto) 0.0 Abs Immat Gran (auto) 0.05 H Absolute Neuts (auto) 8.6 H Absolute Nucleated RBC 0.000 Nucleated RBC % 0.0 Sodium 136 L Potassium 3.3 L Chloride 105 Carbon Dioxide 22 Anion Gap 9 BUN 10 Creatinine 0.40 L Estim Creat Clear Calc 156 Estimated GFR > 60 Glucose 91 Calcium 9.2 Total Bilirubin 0.3 AST 20 ALT 14 Alkaline Phosphatase 63 Total Protein 7.0 Albumin 4.1 Urine Color Yellow Urine Appearance Clear Urine pH 6.0 Ur Specific [place] 1.034 Urine Protein Trace Urine Glucose (UA) Negative Urine Ketones 3+ H Ur Blood (Man) Negative Urine Nitrate Negative Urine Bilirubin Negative Urine Urobilinogen 1.0 Ur Leukocyte Esterase Negative Urine RBC 3-5 H Urine WBC 0-5 Ur Squamous Epith Cells Few Urine Bacteria 1+ H Urine Casts 3-5
--- NOTE | 2025-03-26 08:54 | PM.OBTRLD ---
OB - Triage/Final Diagnosis Visit Information Comments/Additional reasons for admission: I have assessed the risk for this patient, Yuni Mejia, and determined that she would benefit from observation care. Evaluation Laboratory results: Laboratory Tests 03/03/25 21:42 WBC 11.9 H RBC 4.16 L Hgb 11.2 L Hct 34.6 L MCV 83.2 MCH 26.9 MCHC 32.4 RDW 12.4 Plt Count 315 MPV 9.4 Immature Gran % (Auto) 0.4 Neut % (Auto) 72.0 Lymph % (Auto) 18.8 [place] % (Auto) 7.7 Eos % (Auto) 0.8 Baso % (Auto) 0.3 Lymph # (Auto) 2.23 [place] # (Auto) 0.9 H Eos # (Auto) 0.1 Baso # (Auto) 0.0 Abs Immat Gran (auto) 0.05 H Absolute Neuts (auto) 8.6 H Absolute Nucleated RBC 0.000 Nucleated RBC % 0.0 Sodium 136 L Potassium 3.3 L Chloride 105 Carbon Dioxide 22 Anion Gap 9 BUN 10 Creatinine 0.40 L Estim Creat Clear Calc 156 Estimated GFR > 60 Glucose 91 Calcium 9.2 Total Bilirubin 0.3 AST 20 ALT 14 Alkaline Phosphatase 63 Total Protein 7.0 Albumin 4.1 Urine Color Yellow Urine Appearance Clear Urine pH 6.0 Ur Specific [place] 1.034 Urine Protein Trace Urine Glucose (UA) Negative Urine Ketones 3+ H Ur Blood (Man) Negative Urine Nitrate Negative Urine Bilirubin Negative Urine Urobilinogen 1.0 Ur Leukocyte Esterase Negative Urine RBC 3-5 H Urine WBC 0-5 Ur Squamous Epith Cells Few Urine Bacteria 1+ H Urine Casts 3-5 Final Diagnosis (1) Hyperemesis: Code(s): R11.10 - Vomiting, unspecified Status: Acute
== END 2025-03-04 09:19 | disposition home or self-care (01) ==
PROVIDERS: Advanced Practice Midwife; Admitting Provider Obstetrics & Gynecology; Visit Provider Obstetrics & Gynecology
DX: O21.0 Mild hyperemesis gravidarum (principal); Z3A.12 12 weeks gestation of pregnancy
CPT/HCPCS: 36415; 80053; 81001; 85025; 96361; 96374; 96375; G0378; G0379; J1200; J2405; J7121

== ENCOUNTER 2025-03-24 12:15 | Outpatient (CLI) | payer OTHER, SELFPAY ==
--- OUTSIDE RECORDS SUMMARY | 2025-03-24 12:20 | XMS_ITS | Clinical Summary ---
Author Organization [facility] Address [address] [place] [address] Care Team Providers Care Lump Room Supervisor Name Role Phone Tammi Menon DOREEN Primary [...] have care with Dr. Ortega Denson in [place], [place]. Assessment & Plan (07/04/2019 7:48 PM CDT): - no plans to initiate care [place] - gave Rx for doxylamine/pyridoxine for nausea - encouraged smoking cessation; recommended she d/w Dr. Addison Denson when she establishes care Abdominal pain in 07/04/2019 Overview (07/04/2019): 07/04/2019: presented to [facility], r/o for acute process. Transfer to [facility] for dating confirmation. Reports no BM in [...] Department Care Team Description 12/31/2024 2:47 PM HYDROLOGY TECHNICIAN - 12/31/2024 5:34 PM HYDROLOGY TECHNICIAN [facility] Emergency Department [address] [place] [id number] Shortness of breath (Primary Dx) Discharge Disposition: [...] on file Legal Sex Female 11:55 PM HYDROLOGY TECHNICIAN Gender Identity Not on file Sexual [...] Comments Blood Pressure 101/69 12/31/2024 5:25 PM HYDROLOGY TECHNICIAN Pulse 77 12/31/2024 5:25 PM HYDROLOGY TECHNICIAN Temperature 37.1 C (98.7 F) 12/31/2024 2:09 PM HYDROLOGY TECHNICIAN Respiratory Rate 18 12/31/2024 5:25 PM HYDROLOGY TECHNICIAN Oxygen Saturation 100% 12/31/2024 5:25 PM HYDROLOGY TECHNICIAN Inhaled Oxygen Concentration - - Weight 72.7 kg (160 lb 4.4 oz) 12/31/2024 2:09 P M HYDROLOGY TECHNICIAN Height 165.1 cm (5' 5) 12/31/2024 2:09 PM HYDROLOGY TECHNICIAN Body Mass Index 26.67 12/31/2024 2:09 PM HYDROLOGY TECHNICIAN Plan of Treatment Health Maintenance Due Date [...] CHEST PE W CONTRAST ED 3:51 PM HYDROLOGY TECHNICIAN POCT HCG, URINE Routine 12/31/2024 3:19 PM HYDROLOGY TECHNICIAN XR CHEST PA LATERAL 2 VIEWS ED 12/31/2024 2:26 PM HYDROLOGY TECHNICIAN EGFR STAT 12/31/2024 2:16 PM HYDROLOGY TECHNICIAN DIFFERENTIAL AUTO STAT 12/31/2024 2:1 6 PM HYDROLOGY TECHNICIAN D-DIMER, QUANTITATIVE STAT 12/31/2024 2:16 PM HYDROLOGY TECHNICIAN COMPREHENSIVE METABOLIC PANEL STAT 12/31/2024 2:16 PM HYDROLOGY TECHNICIAN CBC WITH AUTO DIFFERENTIAL STAT 12/31/2024 2:16 PM HYDROLOGY TECHNICIAN INFLUENZA A/B, RSV, AND COVID-19 PCR STAT 12/31/2024 2:16 PM HYDROLOGY TECHNICIAN from Last 3 Months Results * CT Chest PE (CTA) W Contrast (12/31/2024 3:51 PM HYDROLOGY TECHNICIAN) Anatomical Region Laterality Modality Body N/A Computed Tomogra phy 12/31/2024 4:49 PM HYDROLOGY TECHNICIAN Narrative 12/31/2024 5:03 PM HYDROLOGY TECHNICIAN EXAM DESCRIPTION: CT CHEST PE (CTA) W [...] Quang Decker M.D. LC: GABRIEL Report ID: [id number] Reading Location: [place] [address] Procedure Note Yumiko Decker MD - 12/31/2024 [...] Quang Decker M.D. LC: GABRIEL Report ID: [id number] Reading Location: [place] [address] [address] PROCEDURES Final Result * POCT hCG, urine (12/31/2024 3:19 PM HYDROLOGY TECHNICIAN) HCG, ur, POC Negative Negative Lot Number [id number] QC Backgroud Clear Acceptable QC Control Line Acceptable Urine 12/31/2024 3:19 PM HYDROLOGY TECHNICIAN us Lesley DE LEON POINT OF CARE TEST ORDERABLES F inal Result * XR Chest PA Lateral 2 Views (12/31/2024 2:26 PM HYDROLOGY TECHNICIAN) Anatomical Region Laterality Modality Body, Chest N/A Computed Radiogr aphy 12/31/2024 2:43 PM HYDROLOGY TECHNICIAN Narrative 12/31/2024 2:43 PM HYDROLOGY TECHNICIAN EXAM DESCRIPTION: XR CHEST PA LATERAL 2 [...] by Remberto Carney M.D. JR: Report ID: [id number] Reading Location: [id number] Procedure Note Remberto Carney MD - 12/31/2024 [...] by Remberto Carney M.D., JR: Report ID: [id number] Reading Location: [id number] Lesley DE LEON IM XR PROCEDURES Final Result * Influenza A/B, RSV, and COVID-19 PCR Nasopharyngeal (12/31/2024 2:16 PM HYDROLOGY TECHNICIAN) COVID-19 RNA Negative Negative Comment:Testing performed by : [facility], [address] [place] [address]., [id number] Influenza A RNA Negative Negative [facility] Comment:Testing performed by : [address] [address] Influenza B RNA Negative Negative [facility] Comment:Testing performed by : [facility], [address] [place] [address]., [address] RSV RNA Negative Negative [facility] Comment: Interpretive data: Testing performed by [facility] ([place], [place]) Laboratory. This test is performed using the [employer] Xpert Xpress CoV-2/Flu/RSV plus assay. This is [...] last revised 2023 Testing performed by: [address] [address] Nasopharyngeal 12/31/2024 2: 16 PM HYDROLOGY TECHNICIAN 12/31/2024 2:24 PM HYDROLOGY TECHNICIAN Narrative YEVGENIY - 12/31/2024 3:09 PM HYDROLOGY TECHNICIAN Is the Patient experiencing symptoms consistent with COVID?->Yes Lesley DE [facility] LAB MICROBIOLOGY - GENERAL JOSE CORONADO Final Result [facility]GEN[facility] [address] [facility] Department [place] [address] * eGFR (12/31/2024 2:16 PM HYDROLOGY TECHNICIAN) eGFR >90 >=60 mL/min/1. 73 m2 Comment: [...] last reviewed 2021. Testing performed by: [address] [address] Blood 12/31/2024 2:16 PM HYDROLOGY TECHNICIAN 12/31/2024 2:24 PM HYDROLOGY TECHNICIAN us Lesley DE LEON LAB BLOOD ORDERABLES Final Resu lt YEVGENIY [address] [facility] Department [place] [address] * (ABNORMAL) Differential, auto (12/31/2024 2:16 PM HYDROLOGY TECHNICIAN) Neutrophil abs 6.0 1.5 - 6.5 K/cumm Comment:Testing performed by : [address] [address] Imm gran abs 0.0 0.0 - 0.1 K/cumm [facility]EV[facility] Comment:Testing performed by : [address] [address] Lymphocyte abs 2.7 0.8 - 3.3 K/cumm YEVGEN[facility]Y Comment:Testing performed by : [address] [address] Monocyte abs 0.9(H) 0.2 - 0.8 K/cumm [facility]EV[facility] Comment:Testing performed by : [address] [address] Eosinophil abs 0.1 0.0 - 0.5 K/cumm [facility]EV[facility] Comment:Testing performed by : [address] [address] Basophil abs 0.0 0.0 - 0.1 K/cumm [facility] Comment:Testing performed by : [address] [address] Neutrophil pct 61.6 % [facility] Comment: Interpretive Data Percent cell count reference ranges are not reported, since discordance with absolute values may lead to misinterpretation of CBC data. Current Interpretive Data was last revised on 2018. Testing performed by: [address] [address] Imm gran pct 0.3 % [facility] Comment: Interpretive Data Percent cell count reference ranges are not reported, since discordance with absolute values may lead to misinterpretation of CBC data. Current Interpretive Data was last revised on 2018. Testing performed by: [address] [address] Lymphocyte pct 27.3 % [facility] Comment: Interpretive Data Percent cell count reference ranges are not reported, since discordance with absolute values may lead to misinterpretation of CBC data. Current Interpretive Data was last revised on 2018. Testing performed by: [address] [address] Monocyte pct 9.4 % [facility] Comment: Interpretive Data Percent cell count reference ranges are not reported, since discordance with absolute values may lead to misinterpretation of CBC data. Current Interpretive Data was last revised on 2018. Testing performed by: [address] [address] Eosinophil pct 1.2 % [facility] Comment: Interpretive Data Percent cell count reference ranges are not reported, since discordance with absolute values may lead to misinterpretation of CBC data. Current Interpretive Data was last revised on 2018. Testing performed by: [address] [address] Basophil pct 0.2 % [facility] Comment: Interpretive Data Percent cell count reference ranges are not reported, since discordance with absolute values may lead to misinterpretation of CBC data. Current Interpretive Data was last revised on 2018. Testing performed by: [address] [address] Blood 12/31/2024 2:16 PM HYDROLOGY TECHNICIAN 12/31/2024 2:24 PM HYDROLOGY TECHNICIAN Lesley DE LEON LAB BLOOD ORDERABLES Final Resu lt YEVGENIY [address] [facility] Department [place] [address] * (ABNORMAL) CBC with auto differential (12/31/2024 2:16 PM HYDROLOGY TECHNICIAN) WBC 9.8 3.8 - 9.9 K/cumm Comment:Testing performed by : [address] [address] Hgb 12.8 11.9 - 15.5 g/dL [facility] Comment:Testing performed by : [address] [address] Hct 40.0 35.6 - 45.5 % [facility] Comment:Testing performed by : [address] [address] Plt 288 150 - 400 K/cumm [facility] Comment:Testing performed by : [address] [address] MPV 9.7 9.1 - 12.3 fL [facility] Comment:Testing performed by : [address] [address] RBC 4.74 3.90 - 5.20 M/cumm [facility] Comment:Testing performed by : [address] [address] MCV 84.4 81.3 - 96.4 fL [facility] Comment:Testing performed by : [address] [address] MCH 27.0(L) 27.1 - 33.3 pg [facility] Comment:Testing performed by : [address] [address] MCHC 32.0(L) 32.3 - 35.7 g/dL [facility] Comment:Testing performed by : [address] [address] RDW CV 12.2 11.1 - 14.9 % [facility] Comment:Testing performed by : [address], [address] RDW SD 36.9 35.7 - 48.1 fL [facility] Comment:Testing performed by : [facility], [address] [place] [address]., [address] NRBC abs 0.00 0.00 - 0.01 K/cumm YEVGENIY TOM Comment:Testing performed by : [facility], [address] [place] [address]., [address] Blood 12/31/2024 2:16 PM HYDROLOGY TECHNICIAN 12/31/2024 2:24 PM HYDROLOGY TECHNICIAN Lesleymorgan [place] LAB BLOOD ORDERABLES Final Resu lt Performing Organization Address [facility] Co de Phone Number YEVGENIY [address] [facility] [address] [place] [address] * (ABNORMAL) D-dimer, quantitative (12/31/2024 2:16 PM HYDROLOGY TECHNICIAN) D-Dimer 720(H) <=499 ng/mL FEU Comment: Interpretive [...] revised on 2019. Testing performed by: [address] [address] Blood 12/31/2024 2:16 PM HYDROLOGY TECHNICIAN 12/31/2024 2:24 PM HYDROLOGY TECHNICIAN Lesley [place] LAB BLOOD ORDERABLES Final Resu lt Performing Organization Address [facility]/ZIP Co de Phone Number YEVGENIY [phone] [facility] [place] [address] * (ABNORMAL) Comprehensive metabolic panel (12/31/2024 2:16 PM HYDROLOGY TECHNICIAN) Sodium 137 135 - 145 mmol/L Comment:Testing performed by : [address] [address] Potassium, pl 4.1 3.3 - 4.9 mmol/L [facility] Comment:Testing performed by : [address] [address] Chloride 103 97 - 110 mmol/L [facility] Comment:Testing performed by : [address], [place]., [address] CO2 24 22 - 32 mmol/L [facility] Comment:Testing performed by : [address] [address] Anion gap 10 2 - 15 mmol/L [facility] Comment:Testing performed by : [address], [place]., [address] BUN 11 6 - 25 mg/dL [facility] Comment:Testing performed by : [address], [place]., [address] Creatinine 0.57(L) 0.60 - 1.10 mg/dL [facility] Comment:Testing performed by : [address] [address] Glucose 89 70 - 199 mg/dL [facility] [...] last revised 2022. Testing performed by: [address] [address] Calcium 9.7 8.5 - 10.3 mg/dL [facility] Comment:Testing performed by : [address] [address] Bilirubin, total 0.2 0.1 - 1.2 mg/dL YEVGENIY TOM Comment:Testing performed by : [address] [address] Protein, pl 7.9 6.5 - 8.5 g/dL [facility] Comment:Testing performed by : [address] [address] Albumin 4.4 3.5 - 5.0 g/dL [facility] Comment:Testing performed by : [address] [address] Alk phos 89 40 - 130 Units/L [facility] Comment:Testing performed by : [address] [address] ALT 21 7 - 45 Units/L [facility] Comment:Testing performed by : [address] [address] AST 24 10 - 45 Units/L [facility] Comment:Testing performed by : [address] [address] Blood 12/31/2024 2:16 PM HYDROLOGY TECHNICIAN 12/31/2024 2:24 PM HYDROLOGY TECHNICIAN us Lesley DE LEON LAB BLOOD ORDERABLES Final Resu lt YEVGENIY [address] [facility] [place] [address] from Last 3 Months Insurance [facility] Care Teams Lump Room Supervisor Relationship Specialty Start Date End Date Tammi Menon LauraDOREEN [address] Pediatric Emerg. Dept. [place] [id number] PCP - General Family Medicine 12/31/24
--- OUTSIDE RECORDS SUMMARY | 2025-03-24 12:20 | XMS_ITS | Data Portability ---
Author Organization [facility] Address [address] [place] [address] [place] [address] Care Team Providers Care Exchange Engineer Name Role Phone VIVIAN ESTRADAISSA Primary Care Provider Assessment No assessment recorded. Plan of Treatment Reminders Order Date Submit Date Provider Last Modified By Organization Details Last Modified Time Details Appointments OB ROUTINE 2024 08:30A M Anju Mcnamara CNM Not available Not available Not available Lab urinalysi s, dipstick 2024 025 [email or web address], [place], [address], 03/15/2025 18:24:17 Referral None recorded. Procedures None recorded. Surgeries None recorded. Imaging US, obstetric , 1st trimester 2024 025 [email or web address] [address], [place], [address], 03/08/2025 18:47:03 US, obstetric , nuchal transluce ncy 2024 025 [email or web address] [address], [place], [address], 03/03/2025 15:59:48 Medication Orders Prozac 10 mg capsule 2024 [facility]25 [facility] [address] [facility], [place], [address], 03/13/2025 00:17:32 sertralin e 50 mg tablet [address] [facility], [address] [facility], [place], [address], 03/02/2025 13:09:57 promethaz ine 25 mg tablet [address] [facility] [address], [address] [facility], [place], [address], 03/02/2025 13:26:21 Fioricet 50 mg-300 mg-40 mg capsule [email or web address] [facility] [address] [facility], [address] [facility], [place], [address], 02/05/2025 21:58:45 Patient TargetsNo targets recorded. Patient InstructionsNo instructions recorded. Reason for Referral None Reported. Results Created Date Observation Date Name Description Value Unit Range Abnormal Flag Note LastModifiedBy Organization Detail LastModifiedTime 03/06/2003/06/2025 [UNIT Y] ANEUP LOIDY NIPT fraction 5.7% normal Not Available Medina hernandez [address] [place] [address], [address], 03/06/2025 03:58:26 03/06/20 25 03/06/2025 [UNIT Y] ANEUP LOIDY NIPT sex chromosome aneuploidy NOT DETECT ED normal Not Available [facility] e [facility] [place], [address], 03/06/2025 03:58:26 03/06/20 25 03/06/2025 [UNIT Y] ANEUP LOIDY NIPT monosomy X LOW RISK <1 in 10,000 normal Not Available [facility] e [address] [place] [address], [address], 03/06/2025 03:58:26 03/06/20 25 03/06/2025 [UNIT Y] ANEUP LOIDY NIPT trisomy 13 LOW RISK <1 in 10,000 normal Not Available [facility] [address] [facility] , [place], [address], 03/06/2025 03:58:26 03/06/20 25 03/06/2025 [UNIT Y] ANEUP LOIDY NIPT trisomy 18 LOW RISK <1 in 10,000 normal Not Available [facility] [address] [facility], [place], [address], 03/06/2025 03:58:26 03/06/20 25 03/06/2025 [UNIT Y] ANEUP LOIDY NIPT trisomy 21 LOW RISK <1 in 10,000 normal Not Available [facility] [address] [facility], [place], [address], 03/06/2025 03:58:26 03/06/20 25 03/06/2025 [UNIT Y] ANEUP LOIDY NIPT sex FEMALE normal Not Available [facility] [address] [facility], [place], [address], 03/06/2025 03:58:26 03/06/20 25 03/06/2025 [UNIT Y] ANEUP LOIDY NIPT gestation SINGLE TON normal Not Available [facility] [address] [facility], [place], [address], 03/06/2025 03:58:26 03/06/20 25 03/06/2025 [UNIT Y] ANEUP LOIDY NIPT for detailed report, see pdf See PDF normal Not Available [facility] [address] [facility], [place], [address], 03/06/2025 03:58:26 01/28/20 25 01/27/2025 IMAGE GUIDE D PAP, REFLE X HPV IF ASCUS ONLY image guided Pap, reflex HPV ASCUS only SEE RESULT S BELOW CASE REPOR T: Cytol ogy Gynec ologi gonsalo Repor t Case: [id number] Autho ripamelan g Provi mic: Latoya Bradley MD Colle cted: 01/27 1722 Order ing Locat ion: [place] Patho logfredi Recei sunil: 01/28 0924 First Scree n: Cornelia Trimble , CT Speci men: Scree saroj Pap - Image d, Cervi x STATE MENT OF ADEQU ACY: Satis facto ry for evalu ation Trans forma tion zone compo nent prese nt ----- ----- ----- ----- ----- ----- ----- ----- ----- ----- ----- ----- ----- ----- ----- ----- ----- ---- FINAL DIAGN OSIS: Negat angel for Intra epith elial William piper or Florecita almanzar (NIL) . Elect mat holm tang d by Cornelia Trimble , CT on 025 [...] cable ): 2024 Clini gonsalo Histo ry/Pr gelaciou s Pap: Type of Neopl chance (if [...] is recom thais d, as clini kentrell warra nted. Not Available [facility] (Lab) [address] [facility], [place], [address], 02/01/2025 12:02:58 01/28/20 25 01/27/2025 TRICH OMONA S VAGIN CATHI (RRNA ) trichomonas vaginalis ribosomal RNA (rrna) Negati ve negati ve Not Available [facility] (Lab) [address] [place], [address], 02/01/2025 12:02:58 01/28/20 25 01/27/2025 CT/GC (JOHN) , THINP REP VIAL chlamydia trachomatis, PCR Negati ve negati ve Not Available [facility] (Lab) [address] [place], [address], 02/01/2025 12:02:59 01/28/20 25 01/27/2025 CT/GC (JOHN) , THINP REP VIAL neisseria gonorrhoeae, PCR Negati ve negati ve Not Available [facility] (Lab) [address] [place], [address], 02/01/2025 12:02:59 02/20/20 25 02/19/2025 CBC W/DIF F WBC 11.0 10'3/ uL 3.5-10 .[address] [facility] (Lab) [address] [place], [address], 02/20/2025 13:00:55 02/20/20 25 02/19/2025 CBC W/DIF F RBC 4.38 10'6/ uL (based on docume nted legal sex) 3.80-[address] [facility] (Lab) [address] [facility], [place], [address], 02/20/2025 13:00:55 02/20/20 25 02/19/2025 CBC W/DIF F HGB 11.7 g/dL (based on docume nted legal sex) 11.6-[address] [facility] (Lab) [address] [facility], [place], [address], 02/20/2025 13:00:55 02/20/20 25 02/19/2025 CBC W/DIF F HCT 36.4 % (based on docume nted legal sex) 34.0-[address] [facility] (Lab) [address] [facility], [place], [address], 02/20/2025 13:00:55 02/20/20 25 02/19/2025 CBC W/DIF F MCV 83.1 fL 80.0-[address] [facility] (Lab) [address] [place], [address], 02/20/2025 13:00:55 02/20/20 25 02/19/2025 CBC W/DIF F MCH 26.7 pg 27.0-3 [address] [facility] (Lab) [address] [facility], [place], [address], 02/20/2025 13:00:55 02/20/20 25 02/19/2025 CBC W/DIF F MCHC 32.1 g/dL 32.0-[address] [facility] (Lab) [address] [place], [address], 02/20/2025 13:00:55 02/20/20 25 02/19/2025 CBC W/DIF F RDW 12.6 % 11.0-[address] [facility] (Lab) [address] [facility], [place], [address], 02/20/2025 13:00:55 02/20/20 25 02/19/2025 CBC W/DIF F plt 350 10'3/ uL 150-[address] [facility] (Lab) [address] [facility], [place], [address], 02/20/2025 13:00:55 02/20/20 25 02/19/2025 CBC W/DIF F MPV 10.2 fL 8.8-[address] [facility] (Lab) [address] [facility], [place], [address], 02/20/2025 13:00:55 02/20/20 25 02/19/2025 CBC W/DIF F neutrophils 72.9 % 34.0-[address] [facility] (Lab) [address] [facility], [place], [address], 02/20/2025 13:00:55 02/20/20 25 02/19/2025 CBC W/DIF F lymphocytes 17.8 % 15.0-[address] [facility] (Lab) [address] [facility], [place], [address], 02/20/2025 13:00:55 02/20/20 25 02/19/2025 CBC W/DIF F monocytes 7.5 % 1.0-[address] [facility] (Lab) [address] [facility], [place], [address], 02/20/2025 13:00:55 02/20/20 25 02/19/2025 CBC W/DIF F eosinophils 1.1 % 0.0-8. [address] [facility] (Lab) [address] [place], [address], 02/20/2025 13:00:55 02/20/20 25 02/19/2025 CBC W/DIF F basophils 0.4 % 0.0-2. [address] [facility] (Lab) [address], [place], [address], 02/20/2025 13:00:55 02/20/20 25 02/19/2025 CBC W/DIF [...] separ ately if prese nt. Not Available [facility] (Lab) [address], [place], [address], 02/20/2025 13:00:55 02/20/20 25 02/19/2025 CBC W/DIF F absolute neutrophils 8.0 10'3/ uL 1.5-8. [address] [facility] (Lab) [address], [place], [address], 02/20/2025 13:00:55 02/20/20 25 02/19/2025 CBC W/DIF F absolute lymphocytes 2.0 10'3/ uL 1.0-4. [address] [facility] (Lab) [address], [place], [address], 02/20/2025 13:00:55 02/20/20 25 02/19/2025 CBC W/DIF F absolute monocytes 0.8 10'3/ uL 0.2-1. [address] [facility] (Lab) [address], [place], [address], 02/20/2025 13:00:55 02/20/20 25 02/19/2025 CBC W/DIF F absolute eosinophils 0.1 10'3/ uL 0.0-0. [address] [facility] (Lab) [address], [place], [address], 02/20/2025 13:00:55 02/20/20 25 02/19/2025 CBC W/DIF F absolute basophils 0.0 10'3/ uL 0.0-0. [address] [facility] (Lab) [address] [place], [address], 02/20/2025 13:00:55 02/20/20 25 02/19/2025 CBC W/DIF F absolute immature granulocytes 0.0 10'3/ uL 0.00-0 .10 Refer ence range s for nonbi nary/ inter sex or unspe cifie d gende r patie nts have not been estab lishe d. [place] e refer to the follo wing table for range s estab lishe d for cisge nder patie nts and evalu ate in the clini gonsalo silke xt of the indiv idual patie nt: https ://la and book. nm.or g/gen derx Not Available [facility] (Lab) [address], [place], [address], 02/20/2025 13:00:55 02/20/20 25 02/19/2025 HEPAT ITIS B SURFA CE ANTIG EN hepatitis B surface antigen Non-re active non-re active This assay was perfo rmed using [employer] ratio n reage nts and test kits. Value s obtai forrest with other assay metho ds or kits canno t be used inter chung eably . Not Available [facility] (Lab) [address], [place], [address], 02/20/2025 13:00:55 02/20/20 25 02/19/2025 HIV 1/2 ANTIG EN/AN TIBOD Y, REFLE X CONFI RMATI ON HIV antigen/anti body Nonrea ctive nonrea ctive HIV-1 antig en and HIV-1 /HIV- 2 antib odies were not detec greg. No labor atory evide nce of HIV infec tion. Not Available [facility] (Lab) [address], [place], [address], 02/20/2025 13:00:56 02/20/20 25 02/19/2025 HEPAT ITIS C ANTIB CLARIBEL SCREE N, REFLE X TO CONFI RMATI ON hepatitis C antibody Non-re active non-re active Antib odies to HCV Not Detec greg, does not exclu de the possi bilit y of expos ure to HCV. Not Available [facility] (Lab) [address] [facility], [place], [address], 02/20/2025 13:00:56 02/20/20 25 02/19/2025 T4 FREE T4, free 0.92 NG/dL 0.60-1 .40 This assay is susce ptibl e to inter feren ce from high level s of bioti n which may false ly eleva te resul ts. Plejoann e corre late with clini gonsalo findi ngs. Not Available [facility] (Lab) [address] [facility], [place], [address], 02/20/2025 13:00:56 02/20/20 25 02/19/2025 TSH, REFLE X FREE T4 TSH 0.03 uIU/m L 0.30-5 .[address] [facility] (Lab) [address] [facility], [place], [address], 02/20/2025 13:00:56 02/20/20 25 02/19/2025 RUBEL LA IGG ANTIB CLARIBEL, QUANT rubella antibodies, IgG Reacti ve reacti ve Not Available [facility] (Lab) [address] [place], [address], 02/20/2025 13:00:57 02/20/20 25 02/19/2025 RUBEL LA IGG ANTIB CLARIBEL, QUANT rubella antibodies, IgG quant 35.4 IU/mL >=10 Non-r eacti ve (Non- Immun e) <10 IU/mL React angel (Immu ne) > or = 10 IU/mL Not Available [facility] (Lab) [address] [place], [address], 02/20/2025 13:00:57 02/20/20 25 02/19/2025 TYPE/ RH/SC REEN ABO/Rh type B POS Not Available [facility] (Lab) [address], [place], [address], 02/20/2025 13:00:57 02/20/20 25 02/19/2025 TYPE/ RH/SC REEN antibody screen NEG Not Available [facility] (Lab) [address] [facility], [place], [address], 02/20/2025 13:00:57 02/20/20 25 02/19/2025 TYPE/ RH/SC REEN exp date 2024 23:[address] [facility] (Lab) [address] [facility], [place], [address], 02/20/2025 13:00:57 02/20/20 25 02/19/2025 HEMOG LOBIN A1C hemoglobin A1C 5.1 % 4.0-5. 6 The Ameri can Diabe oni Assoc iatio n recom mends that a prima ry goal of thera py lon [place] be a HBA1C of < 7% and that physi cians lon d reeva luate the treat ment regim en in patie nts with HBA1C value s consi stent ly > 8%. <5.7% Inna l 5.7 - 6.4% Incre ased risk for diabe oni >=6.5 % Diagn ostic of diabe oni <7.0% Goal of thera py >8.0% Actio n sugge sted Not Available [facility] (Lab) [address], [place], [address], 02/20/2025 13:00:57 02/20/20 25 02/19/2025 RPR SCREE N, REFLE X TITER /CONF IRMAT ION RPR qualitative Nonrea ctive nonrea ctive Not Available [facility] (Lab) [address], [place], [address], 02/20/2025 13:00:58 03/02/20 25 03/02/2025 CULTU RE: URINE result report SEE RESULT S BELOW Test: Cultu re: Urine Speci men Sourc e: Urine - Clean Catch Speci men Type: Urine Speci men Date: 1455 Resul t Date: 2138 Resul t Statu s: Final resul t Abnor mal: No Resul ting Lab: [facility] [address] [facility] [address] Tel: CULTU RE ----- ----- ----- --- No growt h in 1 day (dete ction level of 10,00 0 colon ies / ml.) Not Available [facility] (Lab) [address] [facility], [place], [address], 03/03/2025 22:42:27 03/12/20 25 03/12/2025 CULTU RE: URINE result report SEE RESULT S BELOW Test: Cultu re: Urine Speci men Sourc e: Urine - Clean Catch Speci men Type: Urine Speci men Date: 2024 1600 Resul t Date: 2024 0610 Resul t Statu s: Final resul t Abnor mal: No Resul ting Lab: [facility] [address] [facility] [address] Tel: CULTU RE ----- ----- ----- --- No growt h in 1 day (dete ction level of 10,00 0 colon ies / ml.) Not Available [facility] (Lab) [address] [facility], [place], [address], 03/14/2025 07:15:03 01/15/20 25 01/14/2025 US, pelvi s No observ ation record ed. [email or web address] [facility], [place], [address], 01/14/2025 22:26:54 01/15/20 25 01/14/2025 US, obste tric, trans vagin al No observ ation record ed. [email or web address] [address], [place], [address], 01/14/2025 13:55:51 01/28/20 25 01/27/2025 US, obste tric, trans vagin al No observ ation record ed. [email or web address] [address], [place], [address], 01/27/2025 18:32:06 01/28/20 25 01/27/2025 US, obste tric, trans vagin al No observ ation record ed. [email or web address] [address], [place], [address], 01/27/2025 22:14:08 02/20/20 25 02/19/2025 lab* No observ ation record ed. [email or web address] [address] [facility], [place], [address], 02/22/2025 23:13:52 02/27/20 25 02/26/2025 US, obste tric, limit ed No observ ation record ed. [address] [address], [place], [address], 03/01/2025 11:32:53 02/27/20 25 02/26/2025 US, obste tric, limit ed No observ ation record ed. [address] [facility], [place], [address], 03/01/2025 11:33:10 03/02/20 25 03/02/2025 US, obste tric, nucha l trans lucen cy No observ ation record ed. [email or web address] [address], [place], [address], 03/02/2025 13:35:30 03/02/20 25 03/02/2025 US, obste tric, nucha l trans lucen cy No observ ation record ed. [email or web address] [address], [place], [address], 03/03/2025 14:08:39 03/08/2003/08/2025 US, obste tric, 1st trime ster No observ ation record ed. [email or web address] [address] [address], [place], [address], 03/08/2025 12:22:22 03/08/2003/08/2025 US, obste tric, 1st trime ster No observ ation record ed. [email or web address] [address], [place], [address], 03/10/2025 15:03:13 Result Notes None recorded. Problems Name Problem SNOMED Code Status Onset Date Resolution Date Notes Provider Name and Address Organization Details Recorded Time Gestatio n period, 37 weeks [id number] Completed 201907/05/2021 37 weeks gestatio n of pregnanc y;Record ed Elsewher e: No Locat ion: [facility] S ource: EHR Dining Service Supervisor yvrose: N Dennis ce ID: [id number] Gigi lable Time: 09:00:00 AM Karina ramos [facility] 10:15:[address] Concept Completed 201907/05/2021 Matern care for abnlt fetl hrt rate or rhym, 3rd tri, unsp;Rec orded Elsewher e: No Locat ion: [facility] S ource: EHR Dining Service Supervisor yvrose: N Dennis ce ID: [id number] Gigi lable Time: 08:45:00 AM Karina ramos [facility] 10:15:29 Gestatio nal diabetes mellitus [id number] Completed 201907/05/2021 Gestatio nal diabetes mellitus in pregnanc y, diet controll ed;Recor ded Elsewher e: No Locat ion: [facility] S ource: EHR Dining Service Supervisor yvrose: N Natalyati ce ID: [id number] Gigi lable Time: 11:45:00 AM Karina Burroughs null, [facility] 1 10:15:25 Gestatio n period, 38 weeks [id number] Completed 201907/05/2021 38 weeks gestatio n of pregnanc y;Record ed Elsewher e: No Locat ion: [facility] S ource: EHR Dining Service Supervisor yvrose: N Practi ce ID: [id number] Gigi lable Time: 11:30:00 AM Karina Burroughs null, [facility] 1 10:15:13 Normal pregnanc y in multigra jessy [id number] 01438 Completed 201907/05/2021 Encounte r for supervis ion of other normal pregnanc y, 3rd trimeste r;Record ed Elsewher e: No Locat ion: [facility] S ource: [facility] yvrose: N Natalyati ce ID: [id number] Gigi lable Time: 10:45:00 AM Karina Burroughs null, [facility] 1 10:15:27 Amenorrh ea 73442072 Completed 202007/10/2021 Tammi Jones null, [facility] 1 13:08:35 Pregnanc y 99232498 Completed 202003/29/2022 Karina Burroughs null, [facility] 4 11:00:49 Hypereme sis 990018000 Completed phenerga n now prn Asia arias [facility], [facility] 2 16:43:51 Anxiety in pregnanc y [id number] 9109 Completed will continue to monitor Asia ramos, [facility] 2 16:43:51 Past pregnanc y history of gestatio nal diabetes mellitus 087393795 Completed Early 1 hr GTT @ 20wks 11/03 APPT Asia ramos, [facility] 2 16:43:51 Spinal muscular atrophy 1880204 Completed Carrier - Not in contact with FOB. Asia ramos, [facility] 2 16:43:51 Pregnanc y 89785100 Completed 202304/22/2024 Karina Heike ramos, [facility] 4 11:00:49 Anxiety 05730564 Completed prozac Karina ramos, [facility] 4 11:00:46 Nausea 711920979 Completed d/c zofran pump 11/08 per pt request Karina ramos, [facility] 4 11:00:46 Postpart um hemorrha ge [id number] Completed hx 2017 with d&c Karina ramos, [facility] 4 11:00:46 Headache 16482070 Active 2023 Karina ramos, [facility] 5 16:19:28 Pregnanc y 78756043 Active 2023 Karina ramos, [facility] 5 16:19:28 Uncompli cated moderate persiste nt asthma 035757996 Active 2024 albutero l prn Shawn Bradley MD [address], [place], [address], [facility] 5 13:08:36 Anxiety 42581099 Active 2024 sertrali ne started 03/02/25 changed to prozac 10 on Shawn Bradley MD [address], [place], [address], [facility] 5 17:05:48 Nausea and vomiting 14906173 Active 2024 Shawn Bradley MD [address], [place], [address], [facility] 5 13:20:27 Notes:Order faxed to [facility] access 08/10 for PICC line, and home health already caring for ptHilda Vladimir RN at [phone] Problem Notes None recorded. Procedures Surgical History Date Name Laterality Status Provider Name and Address Organization Details Recorded Time 5 Date of Last Pap Smear completed Karina Burroughs [facility] 01/28/2025 11:19:42 4 Nexplanon Removal completed Shawn Braldey MD [address], [place], [address], [facility] 08/05/2024 15:09:58 4 Control Implant Insertion completed Anju Mcnamara CNM [address], [place], [address], [facility] 05/08/2024 17:59:34 8 Dilation and Curettage completed Karina Burroughs [facility] 07/05/2021 10:17:50 Imaging Results None recorded. Procedure Notes None recorded. Medical Equipment None Reported. Allergies Allergen ID Allergen Name Allergen Category Reaction Reaction Severity Criticality Documentation Date Start Date Code Code System Note Provider Name and Address Organization Details Recorded Time 40746 terbutali ne medicatio n anaphylax is Not available Not available 01/27/20252021 41479 RxNorm Karina ramos, [facility] 5 16:19:27 Medications Name Sig Start Date Stop Date Status Note LastModified by Organization Details LastModified Time methocarb isabel 500 mg tablet 03/20 /2025 completed Not Available Not Available Not Available [...] Not Available Not Available No t Available Prozac 10 mg capsule Take 1 capsule every day by oral route. 2024 active Not Available Not Available Not Avai lable ketoconaz ole 2 % topical cream APPLY TOPICALL Y TO THE AFFECTED AREA EVERY DAY 08/01 completed Not Available Not Available Not Available ondansetr on 4 mg disintegr ating tablet DISSOLVE 1 TABLET IN MOUTH EVERY 6 HOURS NEEDED active Not Available Not Available No t Available cefdinir 300 mg capsule TAKE 1 CAPSULE BY MOUTH EVERY 12 HOURS FOR 10 DAYS 07/05 completed Not Available Not Available Not Available fluticaso ne propionat e 50 mcg/actua tion nasal spray,ian pension USE 1 SPRAY(S) IN EACH NOSTRIL TWICE DAILY NEEDED 01/14 completed Not Available Not Available Not Available sertralin e 50 mg tablet TAKE 1 TABLET BY MOUTH ONCE DAILY active Not Available Not Available No t Available medroxypr ogesteron e 150 mg/mL intramusc [...] Elsewher e: Yes [facility] By: prabhjot Lee r DateTime [...] n (supplie d by office) insert lot [id number] Exp 01/2026 Not Available Not Available Not Available 28 mg iron-800 mcg tablet 07/05 completed Prescrib ed Elsewher e: Yes Loca tion: [facility] M odify By: prabhjot Lee r DateTime : 01/14/20 10:45:00 AM Not Available Not Available Not Available lidocaine 5 % topical ointment APPLY OINTMENT EXTERNAL LY TO RIBS THREE TIMES DAILY NEEDED 01/14 completed Not Available Not Available Not Available DIRECTOR OF SECURITY-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 2024 active Not Available Not Available Not Avai lable Fioricet 50 mg-300 mg-40 mg capsule Take 1 capsule every 4 hours by oral route. 2024 active Not Available Not Available Not Avai lable Tums [place] 200 mg (as calcium carbonate 500 mg) chewable tablet 500 mg by oral route. 2023 active Not Available Not Available Not Avai lable potassium chloride ER 20 mEq tablet,ex tended release TAKE 1 TABLET BY MOUTH ONCE DAILY DIRECTED FOR 7 DAYS active Not Available Not Available No t Available Take Action 1.5 mg tablet TAKE 1 [...] Updated DateTime 02/04/2025 162.56 cm 28.2 kg/m2 93448.15 g 113 mm[Hg] 72 mm[Hg] [facility] 5 10:24:20 Date Recorded Body height Body mass index (BMI) Body weight Systolic blood pressure Diastolic blood pressure Provider Name and Address Organization Details Last Updated DateTime 03/02/2025 162.56 cm 27.1 kg/m2 48263.59 g 116 mm[Hg] 81 mm[Hg] [facility] 12:59:17 Date Recorded Body height Body mass index (BMI) Body weight Systolic blood pressure Diastolic blood pressure Provider Name and Address Organization Details Last Updated DateTime 03/12/2025 162.56 cm 27.1 kg/m2 81139.59 g 132 mm[Hg] 84 mm[Hg] [facility] 16:44:13 Social History Question Answer Notes LastModified by Organizat ion Details LastModified Time Tobacco Smoking Status Former Smoker Karina Burroughs [facility] 07/05/2021 09:06:21 If You Are , What Was Your Level Of Alcohol Consumption Prior To ? None Information not available 07/05/2021 Are You Blind Or Do You Have Difficulty Seeing? No [email or web address] Information n ot available 07/05/2021 What Is Your Level Of Caffeine Consumption? Heavy Information not available 07/05/2021 In The 14 Days Before Symptom Onset, Have You Had Close Contact With A Laboratory-confirm ed COVID-19 While That Case Was Ill? No [email or web address] Information n ot available 07/05/2021 In The 14 Days Before Symptom Onset, Have You Had Close Contact With A Person Who Is Under Investigation For COVID-19 While That Person Was Ill? No [email or web address] Information not available 07/05/2021 Have You Been To An Area Known To Be High Risk For COVID-19? No Information not available 07/05/2021 Are You Deaf Or Do You Have Serious Difficulty Hearing? No [email or web address] Information not available 07/05/2021 What Type Of Diet Are You Following? REGULAR [email or web address] Information n ot available 07/05/2021 Which Illicit Or Recreational Drugs Have You Used? Marijuana [email or web address] Information not available 07/05/2021 Have You Ever Been Counseled For Unhealthy Alcohol Use? No [email or web address] Information not available 07/05/2021 Do You Use Your Seat Belt Or Car Seat Routinely? Yes [email or web address] Information not available 07/05/2021 Do You Have Smoke And Carbon Monoxide Detectors In Your Home? Yes [email or web address] Information not available 07/05/2021 Do You Use Sunscreen Routinely? Yes Information not available 07/05/2021 Has Tobacco Cessation Counseling Been Provided? No [email or web address] Information not available 07/05/2021 Have You Used IV Drugs? No [email or web address] Information not available 07/05/2021 Do You Have Difficulty Walking Or Climbing Stairs? No [email or web address] Information not available 12/06/2021 Sex: Unknown Functional Status Question Answer Note LastModified by Organizat ion Details LastModified Time Do you use any illicit or recreational drugs? Yes [email or web address] Information not available 07/05/2021 Do you or have you ever used any other forms of tobacco or nicotine? Yes [email or web address] Information not available 07/05/2021 What is your level of alcohol consumption? Occasional [email or web address] Information not available 07/05/2021 Do you or have you ever used smokeless tobacco? Never used smokeless tobacco [email or web address] Information not available 07/05/2021 Are you able to walk? YESWOREST [email or web address] Information not available 07/05/2021 Are you able to care for yourself? Yes [email or web address] Information not available 12/06/2021 Do you have difficulty dressing or bathing? No [email or web address] Information not available 12/06/2021 Do you or have you ever used e-cigarettes or vape? Current user of electronic cigarettes [email or web address] Information not available 07/05/2021 What is your exercise level? Occasional [email or web address] Information not available 07/05/2021 Mental Status Question Answer Note LastModified by Organization D etails LastModified Time Do you feel stressed (tense, restless, nervous, or anxious, or unable to sleep at night)? [id number] [email or web address] Information not available 07/05/2021 Family History Relationship Description Onset Age of this Age Resolved Age Notes LastModified by Organization Details LastModified Time Father No current problems or disability [email or web address] Not available 05/2021 09:06:31 Mother No current problems or disability [email or web address] Not available 05/2021 09:06:31 Medical History Condition [...] SNOMED-CT Code Diagnosis ICD10 Code Diagnosis Note [id number] Anju Mcnamara CNM [place] [address],[facility] [place] [address] 07/05/2021 09:58:05 07/05/2021 11:16:35 Pityriasis versicolor 35896250 B36.0 also wash with selsum blue shampoo Vaginitis 42644452 N76.0 Nausea 477600565 R11.0 Contracept ion care management 640680714 Z30.9 [id number] Betsey Joya CNM [place] [address],[facility] [place] [address] 08/02/2021 10:30:44 08/04/2021 10:07:43 Severe hyperemesis gravidarum 381337363 O21.1 Pt has not held anything down for more than 24 hours. Sent to ER for hydration and evaluation . We have discussed dietary precaution s. Recommend very small frequent meals. Avoid greasy, spicy or trigger foods. I do believe she may benefit from home health for fluids and IV antiemetic s. [id number] Anju Mcnamara CNM [place] [address],[facility] [place] [address] 08/08/2021 10:22:11 08/08/2021 13:42:05 Depressive disorder 82090755 F32.A in an emergency mercy info given and kettler reminder, if increased thoughts or plan to hospital for immediate care, pt agrees, continue counseling , will try lexapro once can keep down fluids, se reviewed Gynecologi c examination 13046262 Z01.419 Z11.3 Z11.8 Amenorrhea 46448942 N91. 2 plan NOB and first look Nausea and vomiting 1693 2000 R11.2 unable to leave urine, unable at this time to go to LD, encouraged to go to LD for hydration, working on home health services, [id number] Shawn Bradley MD [place] [address],[place] [address] 08/08/2021 10:21:08 08/08/2021 10:53:33 Routine care 420227717 Z34.91 Z3A.08 [id number] Anju Mcnamara [facility] [address],[place] [address] 09/13/2021 14:51:52 09/14/2021 13:44:23 test positive 517573576 Z32.01 Routine an tenatal care 656968836 Z34.91 [id number] Shawn Bradley MD [place] [address],[place] [address] 09/13/2021 15:35:32 09/13/2021 16:26:27 screening 275036816 Z36.82 [id number] Betsey Joya [facility] [address],[place] [address] 10/09/2021 12:26:15 10/09/2021 17:39:00 Urinary symptoms 095688653 R39.9 Fatigue 55500087 R53.83 Venereal d isease screening 195651034 Z11.3 [id number] Anju Mcnamara [facility] [address],[place] [address] 10/16/2021 11:57:23 10/16/2021 12:48:11 Routine care 926168336 Z34.91 [id number] Anju Mcnamara [facility] [address],[place] [address] 11/03/2021 11:32:21 11/03/2021 13:52:13 Routine care 366134173 Z34.91 [id number] Shawn Bradley MD [place] [address],[place] [address] 11/03/2021 11:31:37 11/03/2021 12:34:34 screening for malformation 501229961 Z36.3 [id number] [facility] [address],[place] [address] 12/06/2021 14:46:58 12/06/2021 16:07:59 Routine care 910985330 Z34.91 Iron defic iency anemia 93311566 D50.9 Anxiety 21946981 F41.9 [id number] Shawn Bradley MD [place] [address],[place] [address] 12/06/2021 14:46:10 12/06/2021 15:18:30 condition affecting obstetrical care of mother 640728006 O35.8XX0 Z3A.25 [id number] Anju Mcnamara [facility] [address],[place] [address] 12/22/2021 11:04:34 12/22/2021 11:32:13 Routine care 078093132 Z34.91 [id number] Shawn Bradley MD [place] [address],[place] [address] 01/03/2022 14:21:04 01/03/2022 15:48:26 Uterine size for dates discrepancy 569026952 O26.843 Z3A.29 [id number] [facility] [address],[place] [address] 01/03/2022 14:21:33 01/03/2022 15:13:41 Routine care 529322202 Z34.91 [id number] Anju Mcnamara [facility] [address],[place] [address] 01/17/2022 16:53:11 01/17/2022 17:24:14 Routine care 833314264 Z34.91 Persistent cough 5882316 02 R05.3 [id number] Betsey Joya [facility] [address],[place] [address] 02/06/2022 09:22:49 02/06/2022 09:55:25 Routine care 955558548 Z34.93 [id number] Shawn Bradley MD [place] [address],[place] [address] 02/13/2022 14:43:16 02/13/2022 15:26:49 Poor growth affecting management 701790119 O36.5930 Z3A.35 [id number] Anju Mcnamara [facility] [address],[place] [address] 02/16/2022 15:13:14 02/16/2022 15:58:27 Routine care 809961749 Z34.91 [id number] Anju Mcnamara [place] [address],[place] [address] 03/02/2022 15:02:03 03/02/2022 15:28:58 Routine care 519269760 Z34.91 [id number] BOLA Miller [place] [address],[place] [address] 03/27/2022 10:37:37 03/27/2022 11:14:18 Mixed anxiety and depressive disorder 230952008 F41.8 Chest pain 51859732 R07. 9 She has a hx of [...] treatment for anxiety/de pression.Bianca peng has a driver education instructor that will take her to [place] ED (vitals are WNL, no acute distress noted).She has no thoughts of harming herself or others.She will call the office to schedule an appointmen t to be seen after ED evaluation . We discussed at that time can start therapy for depression /anxiety. RTC after cleared by ED Time spent with the patient was 20 minutes [id number] Shawn Bradley MD [place] [address] [address] 04/16/2022 15:11:58 04/16/2022 17:11:09 Mixed anxiety and depressive disorder 829006735 F41.8 this patient is a 22-year-ol d [...] ce. More than 50% was counseling . [id number] Shawn Bradley MD [place] [address],[place] [address] 04/16/2022 16:43:28 04/16/2022 17:34:26 Abnormal uterine bleeding 9846179271 9100 N93.9 [id number] BOLA Miller [place] [address],[place] [address] 06/19/2022 17:24:32 06/19/2022 18:03:44 Abnormal uterine bleeding 2399342458 9100 N93.9 We discussed likely spotting is [...] of plan of care. Pain in pelvis 85230438 R10.2 Contracept ion care management 718198145 Z30.9 Irregular periods 736322 07 N92.6 Venereal d isease screening 278997529 Z11.3 Anxiety 39567366 F41.9 [id number] Shawn Bradley MD [place] [address],[place] [address] 10/02/2023 13:44:25 10/02/2023 14:07:54 screening 628315213 Z36.82 Z36.87 Z3A.11 [id number] [facility] [address],[facility] [place] [address] 10/02/2023 13:46:45 10/02/2023 14:50:25 Amenorrhea 63639910 N91.2 plan NOB and first look NIPT and labs todaywants tubal ligation after delivery Gynecologi c examination 77340542 Z01.419 Z11.3 Z11.8 Nausea and vomiting 1693 1999 R11.2 [id number] nAju Mcnamara CNM [place] [address],[place] [address] 11/01/2023 11:17:59 11/01/2023 13:01:44 Gestation period, 16 weeks 70482877 Z3A.16 Anxiety 90569062 F41.9 [id number] Shawn Bradley MD [place] [address],[place] [address] 11/27/2023 14:04:37 11/27/2023 15:16:15 screening for malformation 909901585 Z36.3 Z3A.19 [id number] Anju Mcnamara [facility] [address],[place] [address] 11/27/2023 14:13:33 11/27/2023 15:31:00 Routine care 461522701 Z34.91 [id number] Anju Mcnamara [facility] [address],[place] [address] 12/25/2023 14:51:56 12/25/2023 15:52:45 Routine care 871536288 Z34.91 [id number] Anju Mcnamara [facility] [address],[place] [address] 02/14/2024 14:13:14 02/14/2024 16:07:12 Routine care 928476594 Z34.91 [id number] Anju Mcnamara [place] [address],[place] [address] 03/27/2024 11:47:21 03/27/2024 12:30:07 Routine care 732116836 Z34.91 [id number] Anju Mcnamara [facility] [address],[place] [address] 05/08/2024 14:54:41 05/11/2024 09:00:41 Screening procedure 11187831 Z13.9 Implantati on of subcutaneous contraceptive 680966896 Z30.46 reviewed se risks and benefits, bandage until skin closes, pressure bandage x 24 hourswill schedule bilateral salpingect kateryna with dr. bradley care 85370016 8 Z39.2 continue multivitam in Sterilizat ion requested 062455226 Z30.2 [id number] Shawn Bradley MD [place] [address],[place] [address] 08/05/2024 13:57:53 08/05/2024 15:11:54 Contraception care management 254059033 Z30.9 Nexplanon removed without complicati ons. She tolerated well. [id number] MD Shun Galarza [address],[place] [address] 01/14/2025 11:51:17 01/14/2025 12:53:24 Uncertain viability of 072896912 Z3A.01 [id number] Shawn Bradley MD [place] [address],[place] [address] 01/14/2025 11:51:38 01/15/2025 09:38:25 Pain in pelvis 70814589 R10.2 25-year-ol d female presents for ER [...] care. She will return in 2 weeks. [id number] MD Shun Galarza [address],[place] [address] 01/27/2025 14:42:15 01/27/2025 15:35:58 Abdominal pain in 442073799 O99.891 Z3A.01 [id number] MD Shun Galarza [address],[place] [address] 01/27/2025 14:55:24 01/27/2025 16:41:41 Amenorrhea 55065450 N91.2 Z32.01 this patient is a 25-year-ol [...] begin routine care at her next visit. [id number] MD Shun Galarza [address],[place] [address] 02/04/2025 10:09:23 02/04/2025 10:48:21 Headache 47832468 R51.9 Nausea and vomiting 1693 2000 R11.2 [...] to labor and delivery for IV fluids. [id number] Shawn Bradley MD [place] [address],[place] [address] 03/02/2025 12:17:19 03/02/2025 12:53:50 screening 435465165 Z36.82 Z3A.11 [id number] Shawn Bradley MD [place] [address],[place] [address] 03/02/2025 12:17:40 03/02/2025 15:40:54 Anxiety 04851119 F41.9 care status 24 6656327 Z34.81 [id number] Shawn Bradley MD [place] [address],[place] [address] 03/08/2025 10:47:16 03/08/2025 11:13:32 Complication occurring during 601918837 O99.891 Z3A.13 [id number] Shawn Bradley MD [place] [address],[place] [address] 03/12/2025 15:59:57 03/13/2025 11:16:32 Urinary symptoms 471426680 R39.9 Anxiety 97253441 F41.9 Headache 50390189 R51.9 G89.29 Health Concerns Section Related Observation LastModified by Organization Detai ls LastModified Time None Recorded Concern Status LastModified by Organization Details LastModified Time None Recorded Advance Directives Directive None Recorded Payers Encounter Date Sequence Insurance Name Policy Number Policy Roberts Covered Member ID Roberts Member ID Guarantor Name 02/04/2025 1 [facility] (MEDICAID HMO) [id number] 0003 [facility] [id number] [facility] 03/02/2025 1 [facility] (MEDICAID HMO) [id number] Yuni Brown [id number] [facility] 03/02/2025 1 [facility] (MEDICAID HMO) [id number] Yuni Brown [id number] Yuni Brown 03/08/2025 1 [facility] (MEDICAID HMO) [id number] 0003 Yuni Brown [id number] [facility] 03/12/2025 1 [facility] (MEDICAID HMO) [id number] 0003 [facility] [id number] [facility] Notes Date Note Type Note Provider Name and Address Organization Details Recorded Time 02/04/2025 text/html 25-year-old female with severe nausea, 8 weeks gestation, hyperemesis gravidarum. Patient states Zoelizabet is not working anymore. She is unable to keep liquids down. We talked about various treatment options in detail. Spent over 20 minutes nopw-vn-tdwl with the patient and on her care in total. We agreed to send to labor and delivery for IV fluids. Shawn Bradley MD [address], [place], [address], [facility] 02/04/2025 10:46:36 OBGyn Episode Ob Episode Information Episode Created Date Number of Fetuses Patient Bloodtype Patient rh Status Prepregnancy Weight lbs Domestic Partner Domestic Partner Phone Father Name Research Agricultural Engineer Status 03/14/20 20 1 CLOSED Fetus [...] Domestic Partner Domestic Partner Phone Father Name Research Agricultural Engineer Status 07/05/20 21 1 CLOSED Fetus Data First Name Last Name Admitted to NICU Weight (g) Sex Living Outcome Pediatric Complications Fetus ID Race Codes Race Delivery Type , Spontane ous 95345 Jun Calculation Initial Jun Date Initial Exam [...] Domestic Partner Domestic Partner Phone Father Name Research Agricultural Engineer Status 09/13/20 21 1 B Positive 103 diontre silva CLOSED Fetus Data First Name Last Name Admitted to NICU Weight (g) Sex Living Outcome Pediatric Complications Fetus ID Race Codes Race Delivery Type 3316.89 15 F true Full Term terminal meconium 66473 Vaginal Delivery Problems Problem Notes EIF in [place] noted03/05 PIH WNL, UC WNL Problem Name Start Date End Date Resolution Snomed Code Not e Spinal muscular atrophy 5137043 Carrier - Not i n contact with FOB. Past history of gestational diabetes mellitus 948881945 Early 1 hr GTT @ 20wks 11/03 APPT Hyperemesis 110444982 phenerga n now prn Anxiety in 396591136 88797 will continue to monitor Jun Calculation Initial [...] Date Ultra Sound Latest Days Gestation 0 [email or web address] 09/14/2021 03/16/20 22 0 Pre-fabiola Flowsheet Flowsheet [...] Weight in lbs Pre/Post Dialysis Refused Weight 110.709877367427 BP Diastolic BP Location Tested BP Systolic [...] Weight in lbs Pre/Post Dialysis Refused Weight 119.709947813862 BP Diastolic BP Location Tested BP Systolic [...] Weight in lbs Pre/Post Dialysis Refused Weight 120.455891210685 BP Diastolic BP Location Tested BP Systolic [...] Weight in lbs Pre/Post Dialysis Refused Weight 124.656324076486 BP Diastolic BP Location Tested BP Systolic [...] Weight in lbs Pre/Post Dialysis Refused Weight 137.679764531011 BP Diastolic BP Location Tested BP Systolic [...] Weight in lbs Pre/Post Dialysis Refused Weight 145.8784784074 BP Diastolic BP Location Tested BP Systolic [...] Weight in lbs Pre/Post Dialysis Refused Weight 152.618869966739 BP Diastolic BP Location Tested BP Systolic [...] Weight in lbs Pre/Post Dialysis Refused Weight 150.735464642587 BP Diastolic BP Location Tested BP Systolic [...] Weight in lbs Pre/Post Dialysis Refused Weight 157.901124622637 BP Diastolic BP Location Tested BP Systolic [...] Weight in lbs Pre/Post Dialysis Refused Weight 158.045856737933 BP Diastolic BP Location Tested BP Systolic [...] Weight in lbs Pre/Post Dialysis Refused Weight 163.702010750992 BP Diastolic BP Location Tested BP Systolic [...] Weight in lbs Pre/Post Dialysis Refused Weight 134.257526878144 BP Diastolic BP Location Tested BP Systolic [...] At Estimated Date of Delivery false Thalassemia (Citizen Of [place], Palestinian, Mediterranean, Or Background): MCV < 80 false Neural Tube Defect (Meningom yelocele, Spina Bifida, Or Anencephaly) false Congenital Heart Defect false Down Syndrome false Erick-Sachs (eg, Druze, Cajun, [place]an-[place]) f alse Lizzette Disease false Sickle Cell Disease Or Trait () false Hemophilia Or Other Blood Disorders false Muscular Dystrophy false Cystic Fibrosis false [place]'s Chorea false Intellectual Disability/Autism false If Yes, [...] Domestic Partner Domestic Partner Phone Father Name Research Agricultural Engineer Status 07/05/20 21 1 CLOSED Fetus Data First Name Last Name Admitted to NICU Weight (g) Sex Living Outcome Pediatric Complications Fetus ID Race Codes Race Delivery Type 3175.14 4 F Full Term 90705 Vaginal Delivery Jun Calculation Initial Jun Date [...] Domestic Partner Domestic Partner Phone Father Name Research Agricultural Engineer Status 11/01/19 24 1 B Positive 126 Virgil Daugherty CLOSED Fetus Data First Name Last Name Admitted to NICU Weight (g) Sex Living Outcome Pediatric Complications Fetus ID Race Codes Race Delivery Type 3401.94 M true Full Term 91907 Vaginal Delivery Problems Problem Notes gallbladder attack/pain - re ferral to Gen Surg Dr. Boles sent 11/08- pt never went because pain stopped Problem Name Start Date End Date Resolution Snomed Code Not e Anxiety 29140274 prozac Nausea 654852158 d/c zofran pump 11/08 per pt request hemorrhage 11484410 hx 2017 with d&c Jun Calculation Initial [...] Weight in lbs Pre/Post Dialysis Refused Weight 130.810122932855 BP Diastolic BP Location Tested BP Systolic [...] Weight in lbs Pre/Post Dialysis Refused Weight 136.408837898209 BP Diastolic BP Location Tested BP Systolic [...] Weight in lbs Pre/Post Dialysis Refused Weight 144.560005528391 BP Diastolic BP Location Tested BP Systolic [...] Weight in lbs Pre/Post Dialysis Refused Weight 154.747793968301 BP Diastolic BP Location Tested BP Systolic [...] Weight in lbs Pre/Post Dialysis Refused Weight 157.358172806098 BP Diastolic BP Location Tested BP Systolic [...] Discharge Date Comments 4 27.2 Anju Mcnamara PATRICShana 04/11/2024 limited care Discharge Information Feeding Method Contraceptive Method Maternal HG B and HCT Levels Ob Episode Information Episode Created Date Number of Fetuses Patient Bloodtype Patient rh Status Prepregnancy Weight lbs Domestic Partner Domestic Partner Phone Father Name Research Agricultural Engineer Status 03/02/20 25 1 B Positive 164 OPEN Fetus Data First Name Last Name Admitted to NICU Weight (g) Sex Living Outcome Pediatric Complications Fetus ID Race Codes Race Delivery Type 27970 Problems Problem Notes Problem Name Start Date End Date Resolution Snomed Code Not e Uncomplicated moderate persistent asthma 03/02/2025 034588706 albuterol prn Nausea and vomiting 03/02/2025 48943918 Anxiety 03/02/2025 66863001 sertralin e started 03/02/25 changed to prozac 10 on Jun Calculation Initial Jun Date Initial Exam [...] Weight in lbs Pre/Post Dialysis Refused Weight 158.700940641444 BP Diastolic BP Location Tested BP Systolic [...] 12 week ultrasound. To begin routine care. Flowsheet Date 03/08/2025 Gibson Score Blood Edema Fundus Height Fundus Units Glucose Ketones Leukocytes Nitrite Labor Signs Protein Cervic Dilation Cervic Effacement Cervic Station Type Weight in lbs Pre/Post Dialysis Refused BP Diastolic BP Location Tested BP Systolic BP Type Fetus Heart Rate Present Fetus Movement Comments Flowsheet Date 03/12/2025 Gibson Score Blood Edema Fundus Height Fundus Units Glucose Ketones Leukocytes Nitrite Labor Signs Protein Cervic Dilation Cervic Effacement Cervic Station Type Weight in lbs Pre/Post Dialysis Refused Weight 158.374160103814 BP Diastolic BP Location Tested BP Systolic BP Type 84 L arm 132 sitting Fetus Heart Rate Present A 145 Fetus Movement A No Comments worsening anxiety, prescribe d Prozac at the patient's request. the patient's tachycardia has resolved today. Her pulse is 78. She reports headaches. She is given recommendations on headaches. Menstrual History Last Menstrual Date Menses Monthly [...]
--- OUTSIDE RECORDS SUMMARY | 2025-03-24 12:20 | XMS_ITS | Encounter Summary ---
Author Organization [facility] Healthcare Address [address] [place] [address] Care Team Providers Care Delinquent Account Clerk Name Role Phone Kera Flanagan NP Primary Care Provider [phone] Tammi Menon APRN Primary Care Provider Encounter Details Date Type Department Care Team (Late st Contact Info) Description 10/25/2023 Orders Only [facility] Home Care Services [address] [place] [address] Carli Whitaker, [facility] [...] on file Legal Sex Female 11:55 PM POLITICAL DIRECTOR Gender Identity Not on file Sexual Orientation Not on file documented as of this encounter Plan of Treatment Not on file documented as of this encounter Visit Diagnoses Not on filedocumented in this encounter Additional Health Concerns Infection Onset Date Last Indicated Resolved Time COVID: Suspected 12/31/2024 12/31/2024 12/31/2024 3:10 PM POLITICAL DIRECTOR documented as of this encounter Care Teams Delinquent Account Clerk Relationship Specialty Start Date End Date Kera Flanagan, EVERETT PCP - General 05/30/22 12/30/24 Tammi Menon APRN [address] [place] [address] PCP - General Family Medicine 12/31/24 documented as of this encounter
--- OUTSIDE RECORDS SUMMARY | 2025-03-24 12:20 | XMS_ITS | Referral Summary ---
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 Ortega Denson in [place], [place]. Assessment & Plan (07/04/2019 7:48 PM CDT): - no plans to initiate care in [place] - gave Rx for doxylamine/pyridoxine for nausea - encouraged smoking cessation; recommended she d/w Dr. Addison Denson when she establishes care Abdominal pain in 07/04/2019 Overview (07/04/2019): 07/04/2019: presented to [facility], r/o for acute process. Transfer to [facility] for dating confirmation. 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 Gender Identity Not on file Sexual Orientation Not on file Last Filed Vital Signs Vital Sign Reading Time Taken Comments Blood Pressure 101/69 12/31/2024 5:25 PM CITY BUS DRIVER Pulse 77 12/31/2024 5:25 PM CITY BUS DRIVER Temperature 37.1 C (98.7 F) 12/31/2024 2:09 PM CITY BUS DRIVER Respiratory Rate 18 12/31/2024 5:25 PM CITY BUS DRIVER Oxygen Saturation 100% 12/31/2024 5:25 PM CITY BUS DRIVER Inhaled Oxygen Concentration - - Weight 72.7 kg (160 lb 4.4 oz) 12/31/2024 2:09 P M CITY BUS DRIVER Height 165.1 cm (5' 5) 12/31/2024 2:09 PM CITY BUS DRIVER Body Mass Index 26.67 12/31/2024 2:09 PM CITY BUS DRIVER Plan of Treatment Not on file Procedures Procedure Name Priority Date/Time Associated Diagnosis Comments CT CHEST PE W CONTRAST ED 3:51 PM CITY BUS DRIVER POCT HCG, URINE Routine 12/31/2024 3:19 PM CITY BUS DRIVER XR CHEST PA LATERAL 2 VIEWS ED 12/31/2024 2:26 PM CITY BUS DRIVER EGFR STAT 12/31/2024 2:16 PM CITY BUS DRIVER DIFFERENTIAL AUTO STAT 12/31/2024 2:1 6 PM CITY BUS DRIVER D-DIMER, QUANTITATIVE STAT 12/31/2024 2:16 PM CITY BUS DRIVER COMPREHENSIVE METABOLIC PANEL STAT 12/31/2024 2:16 PM CITY BUS DRIVER CBC WITH AUTO DIFFERENTIAL STAT 12/31/2024 2:16 PM CITY BUS DRIVER INFLUENZA A/B, RSV, AND COVID-19 PCR STAT 12/31/2024 2:16 PM CITY BUS DRIVER from Last 3 Months Results * CT Chest PE (CTA) W Contrast (12/31/2024 3:51 PM CITY BUS DRIVER) Anatomical Region Laterality Modality Body N/A Computed Tomogra phy 12/31/2024 4:49 PM CITY BUS DRIVER Narrative 12/31/2024 5:03 PM CITY BUS DRIVER EXAM DESCRIPTION: CT CHEST PE (CTA) W [...] Quang Decker M.D. LC: GABRIEL Report ID: [id number] Reading Location: [id number] Procedure Note Yumiko Decker MD - 12/31/2024 [...] Quang Decker M.D. LC: GABRIEL Report ID: [id number] Reading Location: [place] [address] Lesley DE LEON [facility] CT PROCEDURES Final Result * POCT hCG, urine (12/31/2024 3:19 PM CITY BUS DRIVER) HCG, ur, POC Negative Negative Lot Number [id number] QC Backgroud Clear Acceptable QC Control Line Acceptable Urine 12/31/2024 3:19 PM CITY BUS DRIVER Lesley DE LEON POINT OF CARE TEST ORDERABLES F inal Result * XR Chest PA Lateral 2 Views (12/31/2024 2:26 PM CITY BUS DRIVER) Anatomical Region Laterality Modality Body, Chest N/A Computed Radiogr aphy 12/31/2024 2:43 PM CITY BUS DRIVER Narrative 12/31/2024 2:43 PM CITY BUS DRIVER EXAM DESCRIPTION: XR CHEST PA LATERAL 2 [...] by Remberto Carney M.D. JR: Report ID: [id number] Reading Location: [id number] Procedure Note Remberto Carney MD - 12/31/2024 [...] by Remberto Carney M.D. JR: Report ID: [id number] Reading Location: [place] [address] us Lesley DE LEON IMG XR PROCEDURES Final Result * Influenza A/B, RSV, and COVID-19 PCR Nasopharyngeal (12/31/2024 2:16 PM CITY BUS DRIVER) Pathologist [facility] COVID-19 RNA Negative Negative Comment:Testing performed by : [address], [address] Influenza A RNA Negative Negative [facility] Comment:Testing performed by : [address] [address] Influenza B RNA Negative Negative [facility] Comment:Testing performed by : [address], [address] RSV RNA Negative Negative [facility] Comment: Interpretive data: Testing performed by [facility]. This test is performed using the [employer] Xpert Xpress CoV-2/Flu/RSV plus assay. This is a multiplex, real-time reverse transcriptase PCR assay intended for the qualitative detection of nucleic acid from SARS-CoV-2, influenza A, influenza B, and respiratory syncytial virus. This assay has been cleared by the [place] Food and Drug administration. The performance characteristics have been verified by the [facility]. Results must be considered in the clinical context, and a negative result does not rule out infection. Interpretive Data last revised 2023 Testing performed by: [address] [address] Nasopharyngeal 12/31/2024 2: 16 PM CITY BUS DRIVER 12/31/2024 2:24 PM CITY BUS DRIVER Narrative YEVGENIY - 12/31/2024 3:09 PM CITY BUS DRIVER Is the Patient experiencing symptoms consistent with COVID?->Yes us Lesley DE LEON LAB MICROBIOLOGY - GENERAL ORDE RABLES Final Result Performing Organization Address City/State/[facility] de Phone Number YEVGENIY [facility] Department [place] [address] * eGFR (12/31/2024 2:16 PM CITY BUS DRIVER) Pathologist [facility] eGFR >90 >=60 mL/min/1. 73 m2 Comment: [...] was last reviewed 2021. Testing performed by: [address] [address] Blood 12/31/2024 2:16 PM CITY BUS DRIVER 12/31/2024 2:24 PM CITY BUS DRIVER us Lesley DE LEON LAB BLOOD ORDERABLES Final Resu lt Performing Organization Address [facility] Co de Phone Number YEVGENIY [facility] Department [place] [address] * (ABNORMAL) Differential, auto (12/31/2024 2:16 PM CITY BUS DRIVER) Pathologist [facility] Neutrophil abs 6.0 1.5 - 6.5 K/cumm Comment:Testing performed by : [address] [address] Imm gran abs 0.0 0.0 - 0.1 K/cumm YEVGENIY Comment:Testing performed by : [address] [address] Lymphocyte abs 2.7 0.8 - 3.3 K/cumm CERNER Comment:Testing performed by : [address], [place]., [address] Monocyte abs 0.9(H) 0.2 - 0.8 K/cumm CERNER Comment:Testing performed by : [address], [place]., [address] Eosinophil abs 0.1 0.0 - 0.5 K/cumm [facility] Comment:Testing performed by : [address], [place]., [address] Basophil abs 0.0 0.0 - 0.1 K/cumm [facility] Comment:Testing performed by : [address] [address] Neutrophil pct 61.6 % [facility] Comment: Interpretive Data Percent cell count reference ranges are not reported, since discordance with absolute values may lead to misinterpretation of CBC data. Current Interpretive Data was last revised on 2018. Testing performed by: [address] [address] Imm gran pct 0.3 % [facility] Comment: Interpretive Data Percent cell count reference ranges are not reported, since discordance with absolute values may lead to misinterpretation of CBC data. Current Interpretive Data was last revised on 2018. Testing performed by: [address] [address] Lymphocyte pct 27.3 % [facility] Comment: Interpretive Data Percent cell count reference ranges are not reported, since discordance with absolute values may lead to misinterpretation of CBC data. Current Interpretive Data was last revised on 2018. Testing performed by: [address] [address] Monocyte pct 9.4 % [facility] Comment: Interpretive Data Percent cell count reference ranges are not reported, since discordance with absolute values may lead to misinterpretation of CBC data. Current Interpretive Data was last revised on 2018. Testing performed by: [address] [address] Eosinophil pct 1.2 % [facility] Comment: Interpretive Data Percent cell count reference ranges are not reported, since discordance with absolute values may lead to misinterpretation of CBC data. Current Interpretive Data was last revised on 2018. Testing performed by: [address] [address] Basophil pct 0.2 % YEVGENIY TOM Comment: Interpretive Data Percent cell count reference ranges are not reported, since discordance with absolute values may lead to misinterpretation of CBC data. Current Interpretive Data was last revised on 2018. Testing performed by: [address] [address] Blood 12/31/2024 2:16 PM CITY BUS DRIVER 12/31/2024 2:24 PM CITY BUS DRIVER us Lesley DE LEON LAB BLOOD ORDERABLES Final Resu lt YEVGENIY [facility] Department [place] [address] * (ABNORMAL) CBC with auto differential (12/31/2024 2:16 PM CITY BUS DRIVER) WBC 9.8 3.8 - 9.9 K/cumm Comment:Testing performed by : [address] [address] Hgb 12.8 11.9 - 15.5 g/dL YEVGENIY TOM Comment:Testing performed by : [address] [address] Hct 40.0 35.6 - 45.5 % YEVGENIY TOM Comment:Testing performed by : [address] [address] Plt 288 150 - 400 K/cumm YEVGENIY TOM Comment:Testing performed by : [address] [address] MPV 9.7 9.1 - 12.3 fL YEVGENIY TOM Comment:Testing performed by : [address] [address] RBC 4.74 3.90 - 5.20 M/cumm YEVGENIY TOM Comment:Testing performed by : [address] [address] MCV 84.4 81.3 - 96.4 fL YEVGENIY Comment:Testing performed by : [address] [address] MCH 27.0(L) 27.1 - 33.3 pg YEVGENIY TOM Comment:Testing performed by : [address] [address] MCHC 32.0(L) 32.3 - 35.7 g/dL YEVGENIY TOM Comment:Testing performed by : [address] [address] RDW CV 12.2 11.1 - 14.9 % YEVGENIY Comment:Testing performed by : [address] [address] RDW SD 36.9 35.7 - 48.1 fL YEVGENIY Comment:Testing performed by : [address] [address] NRBC abs 0.00 0.00 - 0.01 K/cumm YEVGENIY Comment:Testing performed by : [address] [address] Blood 12/31/2024 2:16 PM CITY BUS DRIVER 12/31/2024 2:24 PM CITY BUS DRIVER us Lesley DE LEON LAB BLOOD ORDERABLES Final Resu lt YEVGENIY [address] [facility] Department of Laboratories [place], [place] [id number] * (ABNORMAL) D-dimer, quantitative (12/31/2024 2:16 PM CITY BUS DRIVER) D-Dimer 720(H) <=499 ng/mL FEU Comment: Interpretive [...] last revised on 2019. Testing performed by: [address] [address] Blood 12/31/2024 2:16 PM CITY BUS DRIVER 12/31/2024 2:24 PM CITY BUS DRIVER us Lesley DE LEON LAB BLOOD ORDERABLES Final Resu lt YEVGENIY [address] Department [place] [address] * (ABNORMAL) Comprehensive metabolic panel (12/31/2024 2:16 PM CITY BUS DRIVER) Sodium 137 135 - 145 mmol/L Comment:Testing performed by : [address] [address] Potassium, pl 4.1 3.3 - 4.9 mmol/L YEVGENIY Comment:Testing performed by : [address] [address] Chloride 103 97 - 110 mmol/L YEVGENIY Comment:Testing performed by : [address] [address] CO2 24 22 - 32 mmol/L YEVGENIY Comment:Testing performed by : [address] [address] Anion gap 10 2 - 15 mmol/L YEVGENIY Comment:Testing performed by : [address] [address] BUN 11 6 - 25 mg/dL YEVGENIY Comment:Testing performed by : [address] [address] Creatinine 0.57(L) 0.60 - 1.10 mg/dL YEVGENIY Comment:Testing performed by : [address] [address] Glucose 89 70 - 199 mg/dL YEVGENIY [...] was last revised 2022. Testing performed by: [address] [address] Calcium 9.7 8.5 - 10.3 mg/dL YEVGENIY Comment:Testing performed by : [address] [address] Bilirubin, total 0.2 0.1 - 1.2 mg/dL YEVGENIY Comment:Testing performed by : [address] [address] Protein, pl 7.9 6.5 - 8.5 g/dL YEVGEINY Comment:Testing performed by : [address] [address] Albumin 4.4 3.5 - 5.0 g/dL YEVGENIY Comment:Testing performed by : [address] [address] Alk phos 89 40 - 130 Units/L YEVGENIY Comment:Testing performed by : [address] [address] ALT 21 7 - 45 Units/L YEVGENIY Comment:Testing performed by : [address] [address] AST 24 10 - 45 Units/L YEVGENIY Comment:Testing performed by : [address] [address] Blood 12/31/2024 2:16 PM CITY BUS DRIVER 12/31/2024 2:24 PM CITY BUS DRIVER Lesley DE LEON LAB BLOOD ORDERABLES Final Resu lt C[facility]ER [facility] [address] [facility] [place] [address] from Last 3 Months Insurance [facility] Care Teams Concrete Laborer Relationship Specialty Start Date End Date Tammi Menon APRN [address] [place] [address] PCP - General Family Medicine 12/31/24
--- NOTE | 2025-04-01 15:36 | WPDHOLTEREM ---
Holter/Event Monitor Holter/Event Monitor Date of procedure: 03/24/25 Holter/Event Procedure: 3-7 Day Holter Monitor Indications: Tachycardia Conclusion: 1. 3 days holter monitor on 03/24/25. 2. Underlying rhythm is sinus rhythm. HR range 57-153 bpm; average HR 92 bpm. HR at 153 bpm at 03/26/25 at 7:14 pm. 3. There are rare premature supraventricular complexes. No supraventricular tachycardia. 4. There are rare premature ventricular complexes and rare ventricular triplets. No ventricular tachycardia. 5. No significant pauses greater than 3 seconds. 6. Patient reports 1 episode of symptoms of chest pain, fluttering, racing, shortness of breath which demonstrates sinus tachycardia at 118 bpm.
== END 2025-03-24 12:16 | disposition home or self-care (01) ==
LOC: ANHCARD 12:17
PROVIDERS: Visit Provider Obstetrics & Gynecology
DX: I49.1 Atrial premature depolarization (principal); I49.3 Ventricular premature depolarization; R00.0 Tachycardia, unspecified
CPT/HCPCS: 93242

== ENCOUNTER 2025-04-09 10:56 | Observation (INO) | payer OTHER, SELFPAY ==
[2025-04-09] VITALS (36 sets, daily range): BP systolic 93–127; BP diastolic 48–81; PULSE 62–95; RESP 2–21; O2SAT 94–100; BMI 26.4
--- NOTE | ~2025-04-09 | CT_ITS ---
EXAMINATION: CTA chest PE protocol DATE: 04/09/2025 14:19 INDICATION: Chest pain. Elevated d-dimer. TECHNIQUE: Computed tomography (CT) pulmonary angiogram of the chest was performed with 100 mL Omnipa que-350 intravenous contrast. Additional 3D reconstructions utilizing coronal maximum intensity proje ction (MIP) were performed. Automated exposure control and iterative reconstruction technique were em ployed. The dose-length product was 194.27 mGy-cm. COMPARISON: 03/27/2022 FINDINGS: No pulmonary embolism. No pneumonia, pulmonary edema, pleural effusion or pneumothorax. Heart size is normal. No pericardial effusion. Thoracic aorta is normal in caliber with no dissection. No patholog ically enlarged thoracic lymphadenopathy. Small sliding-type hiatal hernia. Visualized upper abdomen and bones are unremarkable. IMPRESSION: 1. No pulmonary embolism or other acute cardiopulmonary disease. Reviewed, dictated and finalized at location A.
--- OUTSIDE RECORDS SUMMARY | 2025-04-09 10:59 | XMS_ITS | Data Portability ---
Author Organization [facility] Address [address] [place] [address] [place] [address] Care Team Providers Care Grease Cup Filler Name Role Phone CARLOS ESTRADA Primary Care Provider Assessment Encounter Date Assessment Date Assessment LastModified by Organization Details LastModified Time 03/31/2025 03/31/2025 Patient is _16__weeks . Discussed plan. Not available 03/31/2025 11:14:53 Plan of Treatment Reminders Order Date Submit Date Provider Last Modified By Organization Details Last Modified Time Details Appointments U/S OB BASELIN E 2024 01:00P M ULTRASOUND Not available Not available Not available OB ROUTINE 2024 02:00P M Anju Mcnamara CNM Not available Not available Not available Lab urinaly sis, dipstic k 2024 025 [address], [place], [address], 03/31/2025 09:25:47 culture , urine 2024 025 [facility] (Lab), [address], [place], [address], 04/01/2025 23:59:19 urinaly sis, dipstic k 2024 025 [email or web address], [address], [place], [address], 03/15/2025 18:24:17 Referral None recorde d. Procedures None recorde d. Surgeries None recorde d. Imaging US, obstetr ic, 1st trimest er 2024 [address], [address], [place], [address], 03/08/2025 18:47:03 US, obstetr ic, nuchal translu cency 2024 [address], [place], [address], 03/03/2025 15:59:48 Medication Orders ondanse richelle HCl 4 mg tablet 2024 025 [facility], [address] [facility] [place], [address], 03/31/2025 11:15:35 metroni dazole 500 mg tablet 2024 025 [facility] [address], [address] , [place], [address], 03/31/2025 09:37:53 Difluca n 150 mg tablet 2024 025 [facility] [address], [address] , [place], [address], 03/31/2025 09:37:52 Prozac 10 mg capsule 2024 025 [facility] [address], [address] , [place], [address], 03/13/2025 00:17:32 sertral ine 50 mg tablet 2024 025 [facility] [address], [address] , [place], [address], 03/02/2025 13:09:57 Patient TargetsNo targets recorded. Patient InstructionsNo instructions recorded. Reason for Referral None Reported. Results Created Date Observation Date Name Description Value Unit Range Abnormal Flag Note LastModifiedBy Organization Detail LastModifiedTime 03/06/2003/06/2025 [UNIT Y] ANEUP LOIDY NIPT fraction 5.7% normal Not Available [facility] [address] [facility], [place], [address], 03/06/2025 03:58:26 03/06/20 25 03/06/2025 [UNIT Y] ANEUP LOIDY NIPT sex chromosome aneuploidy NOT DETECT ED normal Not Available [facility] [address] [facility], [place], [address], 03/06/2025 03:58:26 03/06/20 25 03/06/2025 [UNIT Y] ANEUP LOIDY NIPT monosomy X LOW RISK <1 in 10,000 normal Not Available [facility] [address] [facility], [place], [address], 03/06/2025 03:58:26 03/06/20 25 03/06/2025 [UNIT Y] ANEUP LOIDY NIPT trisomy 13 LOW RISK <1 in 10,000 normal Not Available [facility] [address] [facility], [place], [address], 03/06/2025 03:58:26 03/06/20 25 03/06/2025 [UNIT Y] ANEUP LOIDY NIPT trisomy 18 LOW RISK <1 in 10,000 normal Not Available [address] [address] [place], [address], 03/06/2025 03:58:26 03/06/20 25 03/06/2025 [UNIT Y] ANEUP LOIDY NIPT trisomy 21 LOW RISK <1 in 10,000 normal Not Available [address] [address] [place], [address], 03/06/2025 03:58:26 03/06/20 25 03/06/2025 [UNIT Y] ANEUP LOIDY NIPT sex FEMALE normal Not Available [facility] [address], [place], [address], 03/06/2025 03:58:26 03/06/20 25 03/06/2025 [UNIT Y] ANEUP LOIDY NIPT gestation SINGLE TON normal Not Available [facility] [address], [place], [address], 03/06/2025 03:58:26 03/06/20 25 03/06/2025 [UNIT Y] ANEUP LOIDY NIPT for detailed report, see pdf See PDF normal Not Available [facility] [address], [place], [address], 03/06/2025 03:58:26 02/20/20 25 02/19/2025 CBC W/DIF F WBC 11.0 10'3/ uL 3.5-10 .5 high Not Available [facility] (Lab) [address] [place], [address], 02/20/2025 13:00:55 02/20/20 25 02/19/2025 CBC W/DIF F RBC 4.38 10'6/ uL (based on docume nted legal sex) 3.80-5 .20 Not Available [facility] (Lab) [address] [place], [address], 02/20/2025 13:00:55 02/20/20 25 02/19/2025 CBC W/DIF F HGB 11.7 g/dL (based on docume nted legal sex) 11.6-1 5.4 Not Available [facility] (Lab) [address] [place], [address], 02/20/2025 13:00:55 02/20/20 25 02/19/2025 CBC W/DIF F HCT 36.4 % (based on docume nted legal sex) 34.0-4 5.0 Not Available [facility] (Lab) [address] [place], [address], 02/20/2025 13:00:55 02/20/20 25 02/19/2025 CBC W/DIF F MCV 83.1 fL 80.0-9 9.0 Not Available [facility] (Lab) [address] [facility], [place], [address], 02/20/2025 13:00:55 02/20/20 25 02/19/2025 CBC W/DIF F MCH 26.7 pg 27.0-3 4.0 low Not Available [facility] (Lab) [address], [place], [address], 02/20/2025 13:00:55 02/20/20 25 02/19/2025 CBC W/DIF F MCHC 32.1 g/dL 32.0-3 5.5 Not Available [facility] (Lab) [address] [facility], [place], [address], 02/20/2025 13:00:55 02/20/20 25 02/19/2025 CBC W/DIF F RDW 12.6 % 11.0-1 5.0 Not Available [facility] (Lab) [address] [facility], [place], [address], 02/20/2025 13:00:55 02/20/20 25 02/19/2025 CBC W/DIF F plt 350 10'3/ uL 150-40 0 Not Available [facility] (Lab) [address] [place], [address], 02/20/2025 13:00:55 02/20/20 25 02/19/2025 CBC W/DIF F MPV 10.2 fL 8.8-12 .1 Not Available [facility] (Lab) [address] [place], [address], 02/20/2025 13:00:55 02/20/20 25 02/19/2025 CBC W/DIF F neutrophils 72.9 % 34.0-7 3.0 Not Available [facility] (Lab) [address] [facility], [place], [address], 02/20/2025 13:00:55 02/20/20 25 02/19/2025 CBC W/DIF F lymphocytes 17.8 % 15.0-5 0.0 Not Available [facility] (Lab) [address] [facility], [place], [address], 02/20/2025 13:00:55 02/20/20 25 02/19/2025 CBC W/DIF F monocytes 7.5 % 1.0-15 .0 Not Available [facility] (Lab) [address] [facility], [place], [address], 02/20/2025 13:00:55 02/20/20 25 02/19/2025 CBC W/DIF F eosinophils 1.1 % 0.0-8. 0 Not Available [facility] (Lab) [address] [facility], [place], [address], 02/20/2025 13:00:55 02/20/20 25 02/19/2025 CBC W/DIF F basophils 0.4 % 0.0-2. 0 Not Available [facility] (Lab) [address] [facility], [place], [address], 02/20/2025 13:00:55 02/20/20 25 02/19/2025 CBC W/DIF F immature granulocytes 0.3 % no define d refere nce range Immat ure Granu locyt es (IG) repre sents autom ated enume ratio n of Metam yeloc ytes, Myelo cytes and Promy elocy oni when IG is < 5%. Blast s are not inclu ded in IG and repor rgeg separ ately if prese nt. Not Available [facility] (Lab) [address] [facility], [place], [address], 02/20/2025 13:00:55 02/20/20 25 02/19/2025 CBC W/DIF F absolute neutrophils 8.0 10'3/ uL 1.5-8. 0 Not Available [facility] (Lab) [address] [facility], [place], [address], 02/20/2025 13:00:55 02/20/2002/19/2025 CBC W/DIF F absolute lymphocytes 2.0 10'3/ uL 1.0-4. 0 Not Available [facility] (Lab) [address] [place], [address], 02/20/2025 13:00:55 02/20/20 25 02/19/2025 CBC W/DIF F absolute monocytes 0.8 10'3/ uL 0.2-1. 0 Not Available [facility] (Lab) [address] [facility], [place], [address], 02/20/2025 13:00:55 02/20/20 25 02/19/2025 CBC W/DIF F absolute eosinophils 0.1 10'3/ uL 0.0-0. 6 Not Available [facility] (Lab) [address] [facility], [place], [address], 02/20/2025 13:00:55 02/20/20 25 02/19/2025 CBC W/DIF F absolute basophils 0.0 10'3/ uL 0.0-0. 3 Not Available [facility] (Lab) [address] [facility], [place], [address], 02/20/2025 13:00:55 02/20/2002/19/2025 CBC W/DIF F absolute immature granulocytes 0.0 10'3/ uL 0.00-0 .10 Refer ence range s for nonbi nary/ inter sex or unspe cifie d gende r patie nts have not been estab lishe d. Mariana e refer to the mitzio wing table for range s estab lishe d for cisge nder patie nts and evalu ate in the clini nicolas silke xt of the indiv idual patie nt: https ://la kyle book. nm.or g/gen derx Not Available [facility] (Lab) [address] [facility], [place], [address], 02/20/2025 13:00:55 02/20/20 25 02/19/2025 HEPAT ITIS B SURFA CE ANTIG EN hepatitis B surface antigen Non-re active non-re active This assay was perfo rmed using [employer] ratio n reage nts and test kits. Value s obtai forrest with other assay metho ds or kits canno t be used inter chung eably . Not Available [facility] (Lab) [address] [facility], [place], [address], 02/20/2025 13:00:55 02/20/20 25 02/19/2025 HIV 1/2 ANTIG EN/AN TIBOD Y, REFLE X CONFI RMATI ON HIV antigen/anti body Nonrea ctive nonrea ctive HIV-1 antig en and HIV-1 /HIV- 2 antib odies were not detec greg. No labor atory evide nce of HIV infec tion. Not Available [facility] (Lab) [address] [facility], [place], [address], 02/20/2025 13:00:56 02/20/20 25 02/19/2025 HEPAT ITIS C ANTIB CLARIBEL SCREE N, REFLE X TO CONFI RMATI ON hepatitis C antibody Non-re active non-re active Antib odies to HCV Not Detec greg, does not exclu de the possi bilit y of expos ure to HCV. Not Available [facility] (Lab) [address] [facility], [place], [address], 02/20/2025 13:00:56 02/20/20 25 02/19/2025 T4 FREE T4, free 0.92 NG/dL 0.60-1 .40 This assay is susce ptibl e to inter feren ce from high level s of bioti n which may false ly eleva te resul ts. Pleas e corre late with clini nicolas findi ngs. Not Available [facility] (Lab) [address] [facility], [place], [address], 02/20/2025 13:00:56 02/20/20 25 02/19/2025 TSH, REFLE X FREE T4 TSH 0.03 uIU/m L 0.30-5 .33 low Not Available [facility] (Lab) [address] [facility], [place], [address], 02/20/2025 13:00:56 02/20/20 25 02/19/2025 RUBEL LA IGG ANTIB CLARIBEL, QUANT rubella antibodies, IgG Reacti ve reacti ve Not Available [facility] (Lab) [address] [facility], [place], [address], 02/20/2025 13:00:57 02/20/20 25 02/19/2025 RUBEL LA IGG ANTIB CLARIBEL, QUANT rubella antibodies, IgG quant 35.4 IU/mL >=10 Non-r eacti ve (Non- Immun e) <10 IU/mL React angel (Immu ne) > or = 10 IU/mL Not Available [facility] (Lab) [address] [facility], [place], [address], 02/20/2025 13:00:57 02/20/20 25 02/19/2025 TYPE/ RH/SC REEN ABO/Rh type B POS Not Available [facility] (Lab) [address] [place], [address], 02/20/2025 13:00:57 02/20/20 25 02/19/2025 TYPE/ RH/SC REEN antibody screen NEG Not Available [facility] (Lab) [address] [place], [address], 02/20/2025 13:00:57 02/20/20 25 02/19/2025 TYPE/ RH/SC REEN exp date 2024 23:59 Not Available [facility] (Lab) [address] [place], [address], 02/20/2025 13:00:57 02/20/20 25 02/19/2025 HEMOG LOBIN A1C hemoglobin A1C 5.1 % 4.0-5. 6 The Ameri can Diabe oni Assoc iatio n recom mends that a prima ry goal of thera py lon d be a HBA1C of < 7% and that physi cians shoul d reeva luate the treat ment regim en in patie nts with HBA1C value s consi stent ly > 8%. <5.7% Inna l 5.7 - 6.4% Incre ased risk for diabe oni >=6.5 % Diagn ostic of diabe oni <7.0% Goal of thera py >8.0% Actio n sugge sted Not Available [facility] (Lab) [address] [facility], [place], [address], 02/20/2025 13:00:57 02/20/20 25 02/19/2025 RPR SCREE N, REFLE X TITER /CONF IRMAT ION RPR qualitative Nonrea ctive nonrea ctive Not Available [facility] (Lab) [address] [facility], [place], [address], 02/20/2025 13:00:58 03/02/20 25 03/02/2025 CULTU RE: URINE result report SEE RESULT S BELOW Test: Cultu re: Urine Speci men Sourc e: Urine - Clean Catch Speci men Type: Urine Speci men Date: 1455 Resul t Date: 2137 Resul t Statu s: Final resul t Abnor mal: No Resul ting Lab: [facility] [address] [facility] [address] Tel: CULTU RE ----- ----- ----- --- No growt h in 1 day (dete ction level of 10,00 0 colon ies / ml.) Not Available [facility] (Lab) [address] [place], [address], 03/03/2025 22:42:27 03/12/20 25 03/12/2025 CULTU RE: URINE result report SEE RESULT S BELOW Test: Cultu re: Urine Speci men Sourc e: Urine - Clean Catch Speci men Type: Urine Speci men Date: 2024 1600 Resul t Date: 2024 0610 Resul t Statu s: Final resul t Abnor mal: No Resul slimg Lab: [facility] [address] [facility] [address] [facility] [address] Tel: CULTU RE ----- ----- ----- --- No growt h in 1 day (dete ction level of 10,00 0 colon ies / ml.) Not Available [facility] (Lab) [address], [place], [address], 03/14/2025 07:15:03 03/12/2003/12/2025 urina lysis , dipst ick Leukocytes ++ Not Available [facility] [address], [place], [address], 03/12/2025 16:45:06 03/12/20 25 03/12/2025 urina lysis , dipst ick Protein + Not Available [address], [place], [address], 03/12/2025 16:45:06 03/12/20 25 03/12/2025 urina lysis , dipst ick pH 5 Not Available [address], [place], [address], 03/12/2025 16:45:06 03/12/20 25 03/12/2025 urina lysis , dipst ick Blood trace Not Available [address], [place], [address], 03/12/2025 16:45:06 03/12/20 25 03/12/2025 urina lysis , dipst ick Specific [place] 1.015 [facility] Available [facility] [address], [place], [address], 03/12/2025 16:45:06 03/12/20 25 03/12/2025 urina lysis , dipst ick Ketone +++ Not Available [address], [place], [address], 03/12/2025 16:45:06 03/31/20 25 03/31/2025 TSH, REFLE X FREE T4 TSH 0.42 uIU/m L 0.30-5 .33 Not Available [facility] (Lab) [address] [place], [address], 04/01/2025 03:05:12 03/31/20 25 03/31/2025 CULTU RE: URINE result report SEE RESULT S BELOW Test: Cultu re: Urine Speci men Sourc e: Urine Voide d Speci men Type: Urine Speci men Date: 171 Resul t Date: 2255 Resul t Statu s: Final resul t Abnor mal: No Resul ting Lab: [facility] [address] [facility] [address] Tel: CULTU RE ----- ----- ----- --- Cultu re resul t (>=3 organ isms prese nt) indic ates possi ble conta minat ion. Repea t cultu re if sympt oms indic ate. Not Available [facility] (Lab) [address], [place], [address], 04/01/2025 23:59:19 03/31/20 25 03/31/2025 urina lysis , dipst ick Leukocytes +1 [facility] Available [facility] [address], [place], [address], 03/31/2025 09:23:13 03/31/20 25 03/31/2025 urina lysis , dipst ick Nitrite normal Not Available [address], [place], [address], 03/31/2025 09:23:13 03/31/20 25 03/31/2025 urina lysis , dipst ick Urobilinogen normal Not Available [facility] [address], [place], [address], 03/31/2025 09:23:13 03/31/20 25 03/31/2025 urina lysis , dipst ick Protein trace Not Available [address], [place], [address], 03/31/2025 09:23:13 03/31/20 25 03/31/2025 urina lysis , dipst ick pH 5 Not Available [address], [place], [address], 03/31/2025 09:23:13 03/31/20 25 03/31/2025 urina lysis , dipst ick Specific [place] 1.020 Not Available [facility] [address], [place], [address], 03/31/2025 09:23:13 03/31/20 25 03/31/2025 urina lysis , dipst ick Ketone normal Not Available [address], [place], [address], 03/31/2025 09:23:13 03/31/20 25 03/31/2025 urina lysis , dipst ick Bilirubin normal Not Available [facility] [address], [place], [address], 03/31/2025 09:23:13 03/31/20 25 03/31/2025 urina lysis , dipst ick Glucose normal Not Available [address], [place], [address], 03/31/2025 09:23:13 03/31/20 25 03/31/2025 urina lysis , dipst ick Appearance normal Not Available [address], [place], [address], 03/31/2025 09:23:13 03/31/2003/31/2025 urina lysis , dipst ick Color normal Not Available [address], [place], [address], 03/31/2025 09:23:13 04/01/20 25 04/01/2025 WOMEN 'S HEALT H SWAB PLUS, DENIS bacterial vaginosis (bv), tma Negati ve negati ve Not Available [facility] (Lab) [address] [place], [address], 04/02/2025 14:08:45 04/01/20 25 04/01/2025 WOMEN 'S HEALT H SWAB PLUS, DENIS mekhi species, tma Negati ve negati ve Not Available [facility] (Lab) [address] [place], [address], 04/02/2025 14:08:45 04/01/20 25 04/01/2025 WOMEN 'S HEALT H SWAB PLUS, DENIS mekhi glabrata, tma Negati ve negati ve Not Available [facility] (Lab) [address] [place], [address], 04/02/2025 14:08:45 04/01/20 25 04/01/2025 WOMEN 'S HEALT H SWAB PLUS, DENIS trichomonas vaginalis, tma Negati ve negati ve Not Available [facility] (Lab) [address] [place], [address], 04/02/2025 14:08:45 04/01/20 25 04/01/2025 WOMEN 'S HEALT H SWAB PLUS, DENIS chlamydia trachomatis, PCR Negati ve negati ve Not Available [facility] (Lab) [address] [place], [address], 04/02/2025 14:08:45 04/01/20 25 04/01/2025 WOMEN 'S HEALT H SWAB PLUS, DENIS neisseria gonorrhoeae, PCR Negati ve negati ve Bacte rial vagin osis detec ts the follo wing bacte sangeeta assoc iated with bacte rial vagin osis (BV): Lacto bacil noemi (L. gasse ri, L. crisp atus and L. jense jerad), Gardn erell a vagin sofía, and Atopo bium vagin ae. A singl e quali tativ e resul t is repor greg base on instr ument softw are to deter mine BV posit angel or negat angel statu s. The Radha da speci es group tests for C. albic ans, C. tropi calis , C. parap xi is, C. dubli niens is. Testi ng is perfo rmed using the Trans cript ion Media greg Ampli ficat ion metho d. Tests for Radha da glabr anaya, Trich omona s vagin sofía, Chlam ydia trach omati s, and Neiss eria gonor rhoea e are also inclu ded in this panel . Not Available [facility] (Lab) [address] [facility], [place], [address], 04/02/2025 14:08:45 02/20/20 25 02/19/2025 lab* No observ ation record ed. [email or web address] [address] [place] [address], [address], 02/22/2025 23:13:52 02/27/20 25 02/26/2025 US, obste tric, limit ed No observ ation record ed. [address], [address], 03/01/2025 11:32:53 02/27/20 25 02/26/2025 US, obste tric, limit ed No observ ation record ed. [address] [place] [address], [address], 03/01/2025 11:33:10 05/06/20 25 03/02/2025 US, obste tric, nucha l trans lucen cy No observ ation record ed. [email or web address] [address], [place], [address], 03/02/2025 13:35:30 03/02/20 25 03/02/2025 US, obste tric, nucha l trans lucen cy No observ ation record ed. [email or web address] [address], [place], [address], 03/03/2025 14:08:39 03/08/20 25 03/08/2025 US, obste tric, 1st trime ster No observ ation record ed. [email or web address] [address], [place], [address], 03/08/2025 12:22:22 03/08/20 25 03/08/2025 US, obste tric, 1st trime ster No observ ation record ed. [email or web address] [address], [place], [address], 03/10/2025 15:03:13 04/01/20 25 03/24/2025 qamar r monit or No observ ation record ed. [email or web address] [address] [facility] [address] [place] [address], [address], 04/08/2025 12:36:45 04/01/20 25 03/22/2025 qamar r monit or No observ ation record ed. [address] (Pulmonary) [address] [facility] [address] [place] [address], [address], 04/06/2025 08:59:34 Result Notes None recorded. Problems Name Problem SNOMED Code Status Onset Date Resolution Date Notes Provider Name and Address Organization Details Recorded Time Gestatio n period, 37 weeks [id number] Completed 201907/05/2021 37 weeks gestatio n of pregnanc y;Record ed Elsewher e: No Locat ion: Jaelyn castillo [facility] S ource: EHR Machining Technician yvrose: N Practi ce ID: [id number] [email or web address] lable Time: 09:00:00 AM Karina ramos [facility] 1 10:15:[address] Concept Completed 201907/05/2021 Matern care for abnlt fetl hrt rate or rhym, 3rd tri, unsp;Rec orded Elsewher e: No Locat ion: [facility] S ource: EHR Machining Technician yvrose: N Practi ce ID: [id number] [email or web address] lable Time: 08:45:00 AM Karina ramos [facility] 10:15:29 Gestatio nal diabetes mellitus [id number] Completed 201907/05/2021 Gestatio nal diabetes mellitus in pregnanc y, diet controll ed;Recor ded Elsewher e: No Locat ion: [facility] S ource: EHR Machining Technician yvrose: N Practi ce ID: [id number] [email or web address] lable Time: 11:45:00 AM Karina ramos, [facility] 10:15:25 Gestatio n period, 38 weeks [id number] Completed 201907/05/2021 38 weeks gestatio n of pregnanc y;Record ed Elsewher e: No [facility] ource: EHR Machining Technician yvrose: N Practi ce ID: [id number] [email or web address] lable Time: 11:30:00 AM Karina ramos [facility] 1 10:15:13 Normal pregnanc y in multigra jessy [id number] Completed 201907/05/2021 Encounte r for supervis ion of other normal pregnanc y, 3rd trimeste r;Record ed Elsewher e: No [facility] S ource: EHR Machining Technician yvrose: N Practi ce ID: [id number] Gigi lable Time: 10:45:00 AM Karina ramos [facility] 1 10:15:27 Amenorrh ea [id number] Completed 202007/10/2021 Tammi Jones null, [facility] 1 13:08:35 Pregnanc y [id number] Completed 202003/29/2022 Karina Burroughs null, [facility] 4 11:00:49 Hypereme sis [id number] Completed phenerga n now prn Asia arias [facility] 2 16:43:51 Anxiety in pregnanc y [id number] Completed will continue to monitor Asia ramos, [facility] 2 16:43:51 Past pregnanc y history of gestatio nal diabetes mellitus [id number] Completed Early 1 hr GTT @ 20wks 11/03 APPT Asia ramos, [facility] 2 16:43:51 Spinal muscular atrophy 1585579 Completed Carrier - Not in contact with FOB. Asia ramos, [facility] 2 16:43:51 Pregnanc y 93086387 Completed 202304/22/2024 Karina ramos, [facility] 4 11:00:49 Anxiety [id number] Completed prozac Karina Burroughs [facility], [facility] 4 11:00:46 Nausea [id number] Completed d/c zofran pump 11/08 per pt request Karina ramos, [facility] 4 11:00:46 Postpart um hemorrha ge [id number] Completed 2017 with d&c Karina ramos, [facility] 4 11:00:46 Headache [id number] Active 2023 Karina Burrouhgs null, [facility] 5 16:19:28 Pregnanc y [id number] Active 2023 Karina Burroughs null, [facility] 5 16:19:28 Uncompli cated moderate persiste nt asthma [id number] Active 2024 albutero l prn Shawn Bradley MD [address], [place], [address], [facility] 5 13:08:36 Anxiety 87028728 Active 2024 sertrali ne started 03/02/25 changed to prozac 10 on Shawn Bradley MD [address], [place], [address], [facility] 5 17:05:48 Nausea and vomiting 36622435 Active 2024 Shawn Bradley MD [address], [place], [address], [facility] [facility] 13:20:27 Notes:Order faxed to [facility] 08/10 for PICC line, and home health already caring for ptHilda Gilbert RN at [phone] Problem Notes None recorded. Procedures Surgical History Date Name Laterality Status Provider Name and Address Organization Details Recorded Time 025 Date of Last Pap Smear completed Karina Burroughs [facility] 01/28/2025 11:19:42 024 Nexplanon Removal completed Shawn Bradley MD [address], [place], [address], [facility] 08/05/2024 15:09:58 024 Control Implant Insertion completed Anju Mcnamara, KRISTEN [address], [place], [address], [facility] 05/08/2024 17:59:34 024 cholecystectomy completed Karina Burroughs [facility] 03/31/2025 09:18:57 018 Dilation and Curettage completed Karina Burroughs [facility] 07/05/2021 10:17:50 Imaging Results None recorded. Procedure Notes None recorded. Medical Equipment None Reported. Allergies Allergen ID Allergen Name Allergen Category Reaction Reaction Severity Criticality Documentation Date Start Date Code Code System Note Provider Name and Address Organization Details Recorded Time 65056 terbutali ne medicatio n anaphylax is Not available Not available 01/27/20252021 76015 RxNorm Karina Burroughs [facility], [facility] 16:19:27 Medications Name Sig Start Date [...] Not Available fluconazo le 150 mg tablet TAKE 1 TABLET BY MOUTH NOW AND REPEAT DOSE IN 48 HOURS active Not Available Not Available No t Available hydrocodo ne 5 mg-acetam inophen 325 [...] 1 TABLET BY MOUTH EVERY 8 HOURS active Not Available Not Available No t Available prednison e 20 mg tablet TAKE [...] TABLET BY MOUTH EVERY 12 HOURS FOR 7 DAYS active Not Available Not Available No t Available sulfameth oxazole 800 mg-trimet hoprim 160 [...] TAKE 1 CAPSULE BY MOUTH ONCE DAILY active Not Available Not Available No t Available buspirone 7.5 mg tablet Take 1 [...] Elsewher e: Yes Loca tion: Jaelyn castillo [facility] odify By: prabhjot barrera DateTime : [...] n (supplie d by office) insert lot [id number] Exp 01/2026 Not Available Not Available Not Available 28 mg iron-800 mcg tablet 07/05 completed Prescrib tej Deleon e: Yes Loca tion: Jaelyn castillo [facility] odify By: prabhjot Encounte r DateTime : 01/14/20 10:45:00 AM Not Available Not Available Not Available lidocaine 5 % topical ointment APPLY OINTMENT EXTERNAL LY TO RIBS THREE TIMES DAILY NEEDED 01/14 completed Not Available Not Available Not Available 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 2024 active Not Available Not Available Not Avai lable Fioricet 50 mg-300 mg-40 mg capsule Take 1 capsule every 4 hours by oral route. 03/31 completed Not Available Not Available Not Available Tums Freshers 200 mg (as calcium carbonate [...] Updated DateTime 03/02/2025 162.56 cm 27.1 kg/m2 06811.59 g 116 mm[Hg] 81 mm[Hg] Melyssa [facility] 12:59:17 Date Recorded Body height Body mass index (BMI) Body weight Systolic blood pressure Diastolic blood pressure Provider Name and Address Organization Details Last Updated DateTime 03/12/2025 162.56 cm 27.1 kg/m2 27686.59 g 132 mm[Hg] 84 mm[Hg] Melyssa [facility] 16:44:13 Date Recorded Body height Body mass index (BMI) Body weight Systolic blood pressure Diastolic blood pressure Provider Name and Address Organization Details Last Updated DateTime 03/31/2025 162.56 cm 27.8 kg/m2 19842.96 g 123 mm[Hg] 78 mm[Hg] Karina Burroughs [facility] 09:16:47 Social History Question Answer Notes LastModified by Organizat ion Details LastModified Time Tobacco Smoking Status Former Smoker Karina Burroughs [facility], [facility] 07/05/2021 09:06:21 If You Are , What Was Your Level Of Alcohol Consumption Prior To ? Occasional [email or web address] Information not available 03/31/2025 Are You Blind Or Do You Have Difficulty Seeing? No [email or web address] Information not available 07/05/2021 What Is Your Level Of Caffeine Consumption? Heavy [email or web address] Information not available 07/05/2021 In The 14 Days Before Symptom Onset, Have You Had Close Contact With A Laboratory-confir med COVID-19 While That Case Was Ill? No [email or web address] Information not available 07/05/2021 In The 14 Days Before Symptom Onset, Have You Had Close Contact With A Person Who Is Under Investigation For COVID-19 While That Person Was Ill? No [email or web address] Information not available 07/05/2021 Have You Been To An Area Known To Be High Risk For COVID-19? No [email or web address] Information not available 07/05/2021 Are You Deaf Or Do You Have Serious Difficulty Hearing? No [email or web address] Information not available 07/05/2021 What Type Of Diet Are You Following? REGULAR [email or web address] Information not available 07/05/2021 Which Illicit Or Recreational Drugs Have You Used? Marijuana [email or web address] Information not available 07/05/2021 Have You Ever Been Counseled For Unhealthy Alcohol Use? No [email or web address] Information not available 07/05/2021 Do You Use Your Seat Belt Or Car Seat Routinely? Yes Information not available 07/05/2021 Do You Have Smoke And Carbon Monoxide Detectors In Your Home? Yes [email or web address] Information not available 07/05/2021 Do You Use Sunscreen Routinely? Yes [email or web address] Information not available 07/05/2021 Has Tobacco Cessation Counseling Been Provided? No [email or web address] Information not available 07/05/2021 Have You Used IV Drugs? No [email or web address] Information not available 07/05/2021 Do You Have Difficulty Walking Or Climbing Stairs? No [email or web address] Information not available 12/06/2021 Sex: Unknown Functional Status Question Answer Note LastModified by Organizat ion Details LastModified Time Do you use any illicit or recreational drugs? Yes [email or web address] Information not available 07/05/2021 Do you or have you ever used any other forms of tobacco or nicotine? Yes [email or web address] Information not available 07/05/2021 What is your level of alcohol consumption? None [email or web address] Information not available 03/31/2025 Do you or have you ever used smokeless tobacco? Never used smokeless tobacco [email or web address] Information not available 07/05/2021 Are you able to walk? YESWOREST [email or web address] Information not available 07/05/2021 Are you able to care for yourself? Yes [email or web address] Information not available 12/06/2021 Do you have difficulty dressing or bathing? No [email or web address] Information not available 12/06/2021 Do you or have you ever used e-cigarettes or vape? Current user of electronic cigarettes [email or web address] Information not available 07/05/2021 What is your exercise level? Occasional Information not available 07/05/2021 Mental Status Question Answer Note LastModified by Organization D etails LastModified Time Do you feel stressed (tense, restless, nervous, or anxious, or unable to sleep at night)? [id number] [email or web address] Information not available 07/05/2021 Family History Relationship Description Onset Age of this Age Resolved Age Notes LastModified by Organization Details LastModified Time Father No current problems or disability [email or web address] Not available 05/2021 09:06:31 Mother No current problems or disability [email or web address] Not available 05/2021 09:06:31 Medical History Condition [...] N Endometriosis N High Cholesterol N Headaches Y Fibromyalgia N Kidney Disease N Heart Problems [...] SNOMED-CT Code Diagnosis ICD10 Code Diagnosis Note [id number] Anju Mcnamara CNM [facility] [address],[place] [address] 07/05/2021 09:58:05 07/05/2021 11:16:35 Pityriasis versicolor 31016164 B36.0 also wash with selsum blue shampoo Vaginitis 81262284 N76.0 Nausea 492610735 R11.0 Contracept ion care management 074522470 Z30.9 [id number] [facility] [address],[place] [address] 08/02/2021 10:30:44 08/04/2021 10:07:43 Severe hyperemesis gravidarum 168647378 O21.1 Pt has not held anything down for more than 24 hours. Sent to ER for hydration and evaluation . We have discussed dietary precaution s. Recommend very small frequent meals. Avoid greasy, spicy or trigger foods. I do believe she may benefit from home health for fluids and IV antiemetic s. [id number] [facility] [address],[place] [address] 08/08/2021 10:22:11 08/08/2021 13:42:05 Depressive disorder 63096381 F32.A in an emergency mercy info given and kettler reminder, if increased thoughts or plan to hospital for immediate care, pt agrees, continue counseling , will try lexapro once can keep down fluids, se reviewed Gynecologi c examination 82211799 Z01.419 Z11.3 Z11.8 Amenorrhea 53182879 N91. 2 plan NOB and first look Nausea and vomiting 1693 1999 R11.2 unable to leave urine, unable at this time to go to LD, encouraged to go to LD for hydration, working on home health services, [id number] Shawn Bradley MD [facility] [address],[place] [address] 08/08/2021 10:21:08 08/08/2021 10:53:33 Routine care 288993060 Z34.91 Z3A.08 [id number] Anju Mcnamara CNM [facility] [address],[place] [address] 09/13/2021 14:51:52 09/14/2021 13:44:23 test positive 615542355 Z32.01 Routine an tenatal care 212583983 Z34.91 [id number] Shawn Bradley MD [facility] [address],[place] [address] 09/13/2021 15:35:32 09/13/2021 16:26:27 screening 434031346 Z36.82 [id number] Betsey Joya [facility] [address],[place] [address] 10/09/2021 12:26:15 10/09/2021 17:39:00 Urinary symptoms 180794497 R39.9 Fatigue 56515103 R53.83 Venereal d isease screening 401467153 Z11.3 [id number] Anju Mcnamara [facility] [address],[place] [address] 10/16/2021 11:57:23 10/16/2021 12:48:11 Routine care 386304060 Z34.91 [id number] Anju Mcnamara [facility] [address],[place] [address] 11/03/2021 11:32:21 11/03/2021 13:52:13 Routine care 246223924 Z34.91 [id number] Shawn Bradley MD [facility] [address],[place] [address] 11/03/2021 11:31:37 11/03/2021 12:34:34 screening for malformation 219793749 Z36.3 [id number] [facility] [address],[place] [address] 12/06/2021 14:46:58 12/06/2021 16:07:59 Routine care 383611721 Z34.91 Iron defic iency anemia 02508659 D50.9 Anxiety 90332911 F41.9 [id number] Shawn Bradley MD [facility] [address],[place] [address] 12/06/2021 14:46:10 12/06/2021 15:18:30 condition affecting obstetrical care of mother 072327292 O35.8XX0 Z3A.25 [id number] [facility] [address],[place] [address] 12/22/2021 11:04:34 12/22/2021 11:32:13 Routine care 621563171 Z34.91 [id number] Shawn Bradley MD [facility] [address],[place] [address] 01/03/2022 14:21:04 01/03/2022 15:48:26 Uterine size for dates discrepancy 966782545 O26.843 Z3A.29 [id number] Anju Mcnamara [facility] [address],[place] [address] 01/03/2022 14:21:33 01/03/2022 15:13:41 Routine care 607348122 Z34.91 [id number] [facility] [address],[place] [address] 01/17/2022 16:53:11 01/17/2022 17:24:14 Routine care 428512229 Z34.91 Persistent cough 7823894 02 R05.3 [id number] Betsey Joya [facility] [address],[place] [address] 02/06/2022 09:22:49 02/06/2022 09:55:25 Routine care 925510946 Z34.93 [id number] Shawn Bradley MD [facility] [address],[place] [address] 02/13/2022 14:43:16 02/13/2022 15:26:49 Poor growth affecting management 659011540 O36.5930 Z3A.35 [id number] [facility] [address],[place] [address] 02/16/2022 15:13:14 02/16/2022 15:58:27 Routine care 655433024 Z34.91 [id number] Anju Mcnamara CNM [facility] [address],[place] [address] 03/02/2022 15:02:03 03/02/2022 15:28:58 Routine care 164877953 Z34.91 [id number] BOLA Miller [facility] [address],[place] [address] 03/27/2022 10:37:37 03/27/2022 11:14:18 Mixed anxiety and depressive disorder 001658905 F41.8 Chest pain 80273897 R07. 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 We discussed at that time can start therapy for depression /anxiety. RTC after cleared by ED Time spent with the patient was 20 minutes [id number] Shawn Bradley MD [facility] [address],[place] [address] 04/16/2022 15:11:58 04/16/2022 17:11:09 Mixed anxiety and depressive disorder 486880392 F41.8 this patient is a 22-year-ol d [...] ce. More than 50% was counseling . [id number] Shawn Bradley MD [facility] [address],[place] [address] 04/16/2022 16:43:28 04/16/2022 17:34:26 Abnormal uterine bleeding 0643917483 9100 N93.9 [id number] BOLA Mliler [facility] [address],[place] [address] 06/19/2022 17:24:32 06/19/2022 18:03:44 Abnormal uterine bleeding 9804714826 9100 N93.9 We discussed likely spotting is [...] of plan of care. Pain in pelvis 05141176 R10.2 Contracept ion care management 648499706 Z30.9 Irregular periods 402405 07 N92.6 Venereal d isease screening 476847802 Z11.3 Anxiety 17047563 F41.9 [id number] Shawn Bradley MD [facility] [address],[place] [address] 10/02/2023 13:44:25 10/02/2023 14:07:54 screening 282284242 Z36.82 Z36.87 Z3A.11 [id number] Anju Mcnamara [facility] [address],[place] [address] 10/02/2023 13:46:45 10/02/2023 14:50:25 Amenorrhea 53452711 N91.2 plan NOB and first look NIPT and labs todaywants tubal ligation after delivery Gynecologi c examination 01911537 Z01.419 Z11.3 Z11.8 Nausea and vomiting 1693 2000 R11.2 [id number] [facility] [address],[place] [address] 11/01/2023 11:17:59 11/01/2023 13:01:44 Gestation period, 16 weeks 41541029 Z3A.16 Anxiety 40182524 F41.9 [id number] Shawn Bradley MD [facility] [address],[place] [address] 11/27/2023 14:04:37 11/27/2023 15:16:15 screening for malformation 932887371 Z36.3 Z3A.19 [id number] Anju Mcnamara [facility] [address],[place] [address] 11/27/2023 14:13:33 11/27/2023 15:31:00 Routine care 895411129 Z34.91 [id number] Anju Mcnamara CNM [facility] [address],[place] [address] 12/25/2023 14:51:56 12/25/2023 15:52:45 Routine care 615961397 Z34.91 [id number] [facility] [address],[place] [address] 02/14/2024 14:13:14 02/14/2024 16:07:12 Routine care 162288507 Z34.91 [id number] Anju Mcnamara [facility] [address],[place] [address] 03/27/2024 11:47:21 03/27/2024 12:30:07 Routine care 926212424 Z34.91 [id number] Anju Mcnamara [facility] [address],[place] [address] 05/08/2024 14:54:41 05/11/2024 09:00:41 Screening procedure 13033806 Z13.9 Implantati on of subcutaneous contraceptive 590005376 Z30.46 reviewed se risks and benefits, bandage until skin closes, pressure bandage x 24 hourswill schedule bilateral salpingect kateryna with dr. bradley care 48112188 8 Z39.2 continue multivitam in Sterilizat ion requested 492179935 Z30.2 [id number] Shawn Bradley MD [facility] [address],[place] [address] 08/05/2024 13:57:53 08/05/2024 15:11:54 Contraception care management 230853519 Z30.9 Nexplanon removed without complicati ons. She tolerated well. [id number] Shawn Bradley MD [facility] [address],[place] [address] 01/14/2025 11:51:17 01/14/2025 12:53:24 Uncertain viability of 814145823 Z3A.01 [id number] Shawn Bradley MD [facility] [address],[place] [address] 01/14/2025 11:51:38 01/15/2025 09:38:25 Pain in pelvis 08955817 R10.2 25-year-ol d female presents for ER [...] care. She will return in 2 weeks. [id number] Shawn Bradley MD [facility] [address],[place] [address] 01/27/2025 14:42:15 01/27/2025 15:35:58 Abdominal pain in 452608617 O99.891 Z3A.01 [id number] Shawn Bradley MD [facility] [address],[place] [address] 01/27/2025 14:55:24 01/27/2025 16:41:41 Amenorrhea 42965840 N91.2 Z32.01 this patient is a 25-year-ol [...] begin routine care at her next visit. [id number] Shawn Bradley MD [facility] [address],[place] [address] 02/04/2025 10:09:23 02/04/2025 10:48:21 Headache 45195619 R51.9 Nausea and vomiting 1693 2000 R11.2 [...] to labor and delivery for IV fluids. [id number] Shawn Bradley MD [facility] [address],[place] [address] 03/02/2025 12:17:19 03/02/2025 12:53:50 screening 897205197 Z36.82 Z3A.11 [id number] Shawn Bradley MD [facility] [address],[place] [address] 03/02/2025 12:17:40 03/02/2025 15:40:54 Anxiety 25912089 F41.9 care status 24 1380026 Z34.81 [id number] Shawn Bradley MD [facility] [address],[place] [address] 03/08/2025 10:47:16 03/08/2025 11:13:32 Complication occurring during 860396665 O99.891 Z3A.13 [id number] Shawn Bradley MD [facility] [address],[place] [address] 03/12/2025 15:59:57 03/13/2025 11:16:32 Urinary symptoms 128625793 R39.9 Anxiety 80677193 F41.9 Headache 88380057 R51.9 G89.29 [id number] Anju Mcnamara [facility] [address],[place] [address] 03/31/2025 08:58:49 03/31/2025 12:05:58 Urinary symptoms 923562454 R39.9 Yeast detected 926114847 B37.9 Nausea 869484204 R11.0 Health Concerns Section Related Observation LastModified by Organization Detai ls LastModified Time None Recorded Concern Status LastModified by Organization Details LastModified Time None Recorded Advance Directives Directive None Recorded Payers Insurance Date Sequence Insurance Name Policy Number Policy Roberts Covered Member ID Roberts Member ID Guarantor Name 03/31/2025 1 [facility] (MEDICAID HMO) [id number] Yuni Mejia [id number] Yuni Mejia OBGyn Episode Ob Episode Information Episode Created Date Number of Fetuses Patient Bloodtype Patient rh Status Prepregnancy Weight lbs Domestic Partner Domestic Partner Phone Father Name Tile Layer Drainage Status 03/14/20 20 1 CLOSED Fetus Data [...] Domestic Partner Domestic Partner Phone Father Name Tile Layer Drainage Status 07/05/20 21 1 CLOSED Fetus Data First Name Last Name Admitted to NICU Weight (g) Sex Living Outcome Pediatric Complications Fetus ID Race Codes Race Delivery Type , Spontane ous 71908 Jun Calculation Initial Jun Date Initial Exam Date Initial Exam Provider Initial Ultrasound Date Last Menstrual Period Date Ultra Sound Weeks Gestation 0 Eighteen To Twenty Week Jun Update Ultra Sound Date Fundal Height At Umbil Quickening Date Ultra Sound Latest Weeks Gestation Final Ujn Confirmed By Final Jun Confirmed Date Final [...] Domestic Partner Domestic Partner Phone Father Name Tile Layer Drainage Status 09/13/20 21 1 B Positive 103 diontre silva CLOSED Fetus Data First Name Last Name Admitted to NICU Weight (g) Sex Living Outcome Pediatric Complications Fetus ID Race Codes Race Delivery Type 3316.89 15 F true Full Term terminal meconium 83197 Vaginal Delivery Problems Problem Notes EIF in [place] noted03/05 PIH WNL, UC WNL Problem Name Start Date End Date Resolution Snomed Code Not e Spinal muscular atrophy 7006086 Carrier - Not i n contact with FOB. Past history of gestational diabetes mellitus 157015984 Early 1 hr GTT @ 20wks 11/03 APPT Hyperemesis 761552827 phenerga n now prn Anxiety in 054012000 42003 will continue to monitor Jun Calculation Initial [...] Date Ultra Sound Latest Days Gestation 0 [email or web address] 09/14/2021 03/16/20 22 0 Pre-fabiola Flowsheet Flowsheet [...] Weight in lbs Pre/Post Dialysis Refused Weight 110.885950475274 BP Diastolic BP Location Tested BP Systolic [...] Weight in lbs Pre/Post Dialysis Refused Weight 119.054678191234 BP Diastolic BP Location Tested BP Systolic [...] Weight in lbs Pre/Post Dialysis Refused Weight 120.220942672774 BP Diastolic BP Location Tested BP Systolic [...] Weight in lbs Pre/Post Dialysis Refused Weight 124.941378558413 BP Diastolic BP Location Tested BP Systolic [...] Weight in lbs Pre/Post Dialysis Refused Weight 137.718426376884 BP Diastolic BP Location Tested BP Systolic [...] Weight in lbs Pre/Post Dialysis Refused Weight 145.2596837200 BP Diastolic BP Location Tested BP Systolic [...] Weight in lbs Pre/Post Dialysis Refused Weight 152.920879225780 BP Diastolic BP Location Tested BP Systolic [...] Weight in lbs Pre/Post Dialysis Refused Weight 150.477256685666 BP Diastolic BP Location Tested BP Systolic [...] Weight in lbs Pre/Post Dialysis Refused Weight 157.630167258586 BP Diastolic BP Location Tested BP Systolic [...] Weight in lbs Pre/Post Dialysis Refused Weight 158.874780976795 BP Diastolic BP Location Tested BP Systolic [...] Weight in lbs Pre/Post Dialysis Refused Weight 163.127266430961 BP Diastolic BP Location Tested BP Systolic [...] Weight in lbs Pre/Post Dialysis Refused Weight 134.347162651146 BP Diastolic BP Location Tested BP Systolic [...] At Estimated Date of Delivery false Thalassemia ([place] Citizen, Croatian, Mediterranean, Or Background): MCV < 80 false Neural Tube Defect (Meningom yelocele, Spina Bifida, Or Anencephaly) false Congenital Heart Defect false Down Syndrome false Erick-Sachs (eg, Yarsanism, Cajun, Icelandic-Brooks) f alse Lizzette Disease false Sickle Cell Disease Or Trait () false Hemophilia Or Other Blood Disorders false Muscular Dystrophy false Cystic Fibrosis false Adams's Chorea false Intellectual Disability/Autism false If Yes, [...] Domestic Partner Domestic Partner Phone Father Name Tile Layer Drainage Status 07/05/20 21 1 CLOSED Fetus Data First Name Last Name Admitted to NICU Weight (g) Sex Living Outcome Pediatric Complications Fetus ID Race Codes Race Delivery Type 3175.14 4 F Full Term 38210 Vaginal Delivery Jun Calculation Initial Jun Date [...] Domestic Partner Domestic Partner Phone Father Name Tile Layer Drainage Status 11/01/19 24 1 B Positive 126 Lamoja Wand CLOSED Fetus Data First Name Last Name Admitted to NICU Weight (g) Sex Living Outcome Pediatric Complications Fetus ID Race Codes Race Delivery Type 3401.94 M true Full Term 11224 Vaginal Delivery Problems Problem Notes gallbladder attack/pain - re ferral to Gen Surg Dr. Boles sent 11/08- pt never went because pain stopped Problem Name Start Date End Date Resolution Snomed Code Not e Anxiety 71285686 prozac Nausea 842782178 d/c zofran pump 11/08 per pt request hemorrhage [id number] hx of 2017 with d&c Jun Calculation [...] Weight in lbs Pre/Post Dialysis Refused Weight 130.496608146846 BP Diastolic BP Location Tested BP Systolic [...] Weight in lbs Pre/Post Dialysis Refused Weight 136.138010113765 BP Diastolic BP Location Tested BP Systolic [...] Weight in lbs Pre/Post Dialysis Refused Weight 144.552679793696 BP Diastolic BP Location Tested BP Systolic [...] Weight in lbs Pre/Post Dialysis Refused Weight 154.940311049625 BP Diastolic BP Location Tested BP Systolic [...] Weight in lbs Pre/Post Dialysis Refused Weight 157.801731172188 BP Diastolic BP Location Tested BP Systolic [...] Discharge Date Comments 4 27.2 Anju Mcnamara CNShana 04/11/2024 limited care Discharge Information Feeding Method Contraceptive Method Maternal HG B and HCT Levels Ob Episode Information Episode Created Date Number of Fetuses Patient Bloodtype Patient rh Status Prepregnancy Weight lbs Domestic Partner Domestic Partner Phone Father Name Tile Layer Drainage Status 03/02/20 25 1 B Positive 164 OPEN Fetus Data First Name Last Name Admitted to NICU Weight (g) Sex Living Outcome Pediatric Complications Fetus ID Race Codes Race Delivery Type 18764 Problems Problem Notes Tachycardia Holter monitor 7 2 order- pt sent back on 03-27-25 Problem Name Start Date End Date Resolution Snomed Code Not e Uncomplicated moderate persistent asthma 03/02/2025 849232081 albuterol prn Nausea and vomiting 03/02/2025 93214654 Anxiety 03/02/2025 [id number] sertralin e started 03/02/25 changed to prozac [...] Weight in lbs Pre/Post Dialysis Refused Weight 158.513158204212 BP Diastolic BP Location Tested BP Systolic [...] Weight in lbs Pre/Post Dialysis Refused Weight 158.504617678554 BP Diastolic BP Location Tested BP Systolic BP Type 84 L arm 132 sitting Fetus Heart Rate Present A 145 Fetus Movement A No Comments worsening anxiety, prescribe d Prozac at the patient's request. the patient's tachycardia has resolved today. Her pulse is 78. She reports headaches. She is given recommendations on headaches. Flowsheet Date 03/31/2025 Gibson Score Blood Edema Fundus Height Fundus Units Glucose Ketones Leukocytes Nitrite Labor Signs Protein Cervic Dilation Cervic Effacement Cervic Station neg none Type Weight in lbs Pre/Post Dialysis Refused Weight 162.940600552064 BP Diastolic BP Location Tested BP Systolic BP Type 78 123 Fetus Heart Rate Present A 148 Fetus Movement A Yes Comments Patient is having having ronny n, cramping and vaginal discharge. 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
--- OUTSIDE RECORDS SUMMARY | 2025-04-09 10:59 | XMS_ITS | Referral Summary ---
Author Organization [facility] Address [address] [place] [address] Care Team Providers Care Lobster Man Name Role Phone Tammi Menon DOREEN Primary [...] have care with Dr. Ortega Denson in [place], [place]. Assessment & Plan (07/04/2019 7:48 PM CDT): - no plans to initiate care in [place] - gave Rx for doxylamine/pyridoxine for nausea - encouraged smoking cessation; recommended she d/w Dr. Addison Denson when she establishes care Abdominal pain in 07/04/2019 Overview (07/04/2019): 07/04/2019: presented to [facility], r/o for acute process. Transfer to [facility] for dating confirmation. 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 Gender Identity Not on file Sexual Orientation Not on file Last Filed Vital Signs Vital Sign Reading Time Taken Comments Blood Pressure 101/69 12/31/2024 5:25 PM FIVE PIECE EXPANSION MAKER HAND Pulse 77 12/31/2024 5:25 PM FIVE PIECE EXPANSION MAKER HAND Temperature 37.1 C (98.7 F) 12/31/2024 2:09 PM FIVE PIECE EXPANSION MAKER HAND Respiratory Rate 18 12/31/2024 5:25 PM FIVE PIECE EXPANSION MAKER HAND Oxygen Saturation 100% 12/31/2024 5:25 PM FIVE PIECE EXPANSION MAKER HAND Inhaled Oxygen Concentration - - Weight 72.7 kg (160 lb 4.4 oz) 12/31/2024 2:09 P M FIVE PIECE EXPANSION MAKER HAND Height 165.1 cm (5' 5) 12/31/2024 2:09 PM FIVE PIECE EXPANSION MAKER HAND Body Mass Index 26.67 12/31/2024 2:09 PM FIVE PIECE EXPANSION MAKER HAND Plan of Treatment Not on file Insurance [facility] Care Teams Lobster Man Relationship Specialty Start Date End Date Tammi Menon APRN [address] [place] [address] PCP - General Family Medicine 12/31/24
--- OUTSIDE RECORDS SUMMARY | 2025-04-09 10:59 | XMS_ITS | Encounter Summary ---
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 [address] PCP - General Family Medicine 12/31/24 documented as of this encounter
--- OUTSIDE RECORDS SUMMARY | 2025-04-09 10:59 | XMS_ITS | Clinical Summary ---
Author Organization [facility] Address [address] [place] [address] Care Team Providers Care Construction Recruiter Name Role Phone Tammi Menon DOREEN Primary [...] have care with Dr. Ortega Denson in [place], [place]. Assessment & Plan (07/04/2019 7:48 PM CDT): - no plans to initiate care in ST - gave Rx for doxylamine/pyridoxine for nausea - encouraged smoking cessation; recommended she d/w Dr. Addison Denson when she establishes care Abdominal pain in 07/04/2019 Overview (07/04/2019): 07/04/2019: presented to [facility], r/o for acute process. Transfer to [facility] for dating confirmation. Reports [...] laceration. Also required blood transfusion for hemorrhage. 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 Gender Identity Not on file Sexual [...] Comments Blood Pressure 101/69 12/31/2024 5:25 PM INSTRUCTIONAL MEDIA SERVICES TECHNICIAN Pulse 77 12/31/2024 5:25 PM INSTRUCTIONAL MEDIA SERVICES TECHNICIAN Temperature 37.1 C (98.7 F) 12/31/2024 2:09 PM INSTRUCTIONAL MEDIA SERVICES TECHNICIAN Respiratory Rate 18 12/31/2024 5:25 PM INSTRUCTIONAL MEDIA SERVICES TECHNICIAN Oxygen Saturation 100% 12/31/2024 5:25 PM INSTRUCTIONAL MEDIA SERVICES TECHNICIAN Inhaled Oxygen Concentration - - Weight 72.7 kg (160 lb 4.4 oz) 12/31/2024 2:09 P M INSTRUCTIONAL MEDIA SERVICES TECHNICIAN Height 165.1 cm (5' 5) 12/31/2024 2:09 PM INSTRUCTIONAL MEDIA SERVICES TECHNICIAN Body Mass Index 26.67 12/31/2024 2:09 PM INSTRUCTIONAL MEDIA SERVICES TECHNICIAN Plan of Treatment Health Maintenance Due [...] on patient's age to complete this topic Insurance [facility] Care Teams Construction Recruiter Relationship Specialty Start Date End Date Tammi Menon, DOREEN [address] Pediatric Emerg. Dept. [place] [id number] PCP - General Family Medicine 12/31/24
--- NOTE | 2025-04-09 11:09 | PC.NURSE ---
Patient reports that she was seen and treated last night at [facility] for Chest pain, completed an EKG and blood work. patient is unhappy that her OB sent her to the [facility] and then she was sent over to the ED. patient is declining cardiac work up at time of arrival due to having negative cardiac work up last night.
--- NOTE | 2025-04-09 11:16 | ECG_ITS ---
Test Date: 2025-04-09 11:25:30 Measurements Intervals [place] Rate: 87 P: 55 NM: 148 QRS: 47 QRSD: 67 T: 35 QT: 349 QTc: 420 Interpretive Statements SINUS RHYTHM WITH SINUS ARRHYTHMIA DELAYED PRECORDIAL R/S TRANSITION BASELINE ARTIFACT- I, II, III, AVR, AVL, AVF, V2 BORDERLINE ECG Compared to ECG 02/16/2025 14:26:04 No significant changes Electronically Signed On 04-09-2025 11:36:07 CDT by Vinicio Martínez D.O.
--- OUTSIDE RECORDS SUMMARY | 2025-04-09 11:23 | XMS_ITS | Clinical Summary ---
Author Organization [facility] Address [address] [place] [address] Care Team Providers Care Dtp Operator Name Role Phone Tammi Menon DOREEN [...] have care with Dr. Ortega Denson in [place], [place]. Assessment & Plan (07/04/2019 7:48 PM CDT): - no plans to initiate care in [place] - gave Rx for doxylamine/pyridoxine for nausea - encouraged smoking cessation; recommended she d/w Dr. Addison Denson when she establishes care Abdominal pain in 07/04/2019 Overview (07/04/2019): 07/04/2019: presented to [facility], r/o for acute process. Transfer to [facility] for dating confirmation. 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 Gender Identity Not on file Sexual [...] Comments Blood Pressure 101/69 12/31/2024 5:25 PM AIRPORT OPERATIONS SPECIALIST Pulse 77 12/31/2024 5:25 PM AIRPORT OPERATIONS SPECIALIST Temperature 37.1 C (98.7 F) 12/31/2024 2:09 PM AIRPORT OPERATIONS SPECIALIST Respiratory Rate 18 12/31/2024 5:25 PM AIRPORT OPERATIONS SPECIALIST Oxygen Saturation 100% 12/31/2024 5:25 PM AIRPORT OPERATIONS SPECIALIST Inhaled Oxygen Concentration - - Weight 72.7 kg (160 lb 4.4 oz) 12/31/2024 2:09 P M AIRPORT OPERATIONS SPECIALIST Height 165.1 cm (5' 5) 12/31/2024 2:09 PM AIRPORT OPERATIONS SPECIALIST Body Mass Index 26.67 12/31/2024 2:09 PM AIRPORT OPERATIONS SPECIALIST Plan of Treatment Health Maintenance Due [...] patient's age to complete this topic Insurance [facility] Care Teams Dtp Operator Relationship Specialty Start Date End Date Tammi Menon, DOREEN [address] Pediatric Emerg. Dept. [place] [id number] PCP - General Family Medicine 12/31/24
--- OUTSIDE RECORDS SUMMARY | 2025-04-09 11:23 | XMS_ITS | Encounter Summary ---
Author Organization [facility] Healthcare Address [address] [place] [address] Care Team Providers Care Behavior Interventionist Name Role Phone Krea Flanagan NP Primary Care Provider [phone] Tammi Menon APRN Primary Care Provider Encounter Details Date Type Department Care Team (Late st Contact Info) Description 10/25/2023 Orders Only [facility] Home Care Services [address] [place] [address] Carli Whitaker, [facility] Social History Tobacco Use Types Packs/Day Years [...] on file Legal Sex Female 11:55 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 [address] PCP - General Family Medicine 12/31/24 documented as of this encounter
--- OUTSIDE RECORDS SUMMARY | 2025-04-09 11:23 | XMS_ITS | Referral Summary ---
Author Organization [facility] Address [address] [place] [address] Care Team Providers Care Medical Assembly Name Role Phone Tammi Menon DOREEN Primary [...] have care with Dr. Ortega Denson in [place], [place]. Assessment & Plan (07/04/2019 7:48 PM CDT): - no plans to initiate care in [facility] - gave Rx for doxylamine/pyridoxine for nausea - encouraged smoking cessation; recommended she d/w Dr. Addison Denson when she establishes care Abdominal pain in 07/04/2019 Overview (07/04/2019): 07/04/2019: presented to [facility], r/o for acute process. 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 Gender Identity Not on file Sexual Orientation Not on file Last Filed Vital Signs Vital Sign Reading Time Taken Comments Blood Pressure 101/69 12/31/2024 5:25 PM PARASITOLOGIST Pulse 77 12/31/2024 5:25 PM PARASITOLOGIST Temperature 37.1 C (98.7 F) 12/31/2024 2:09 PM PARASITOLOGIST Respiratory Rate 18 12/31/2024 5:25 PM PARASITOLOGIST Oxygen Saturation 100% 12/31/2024 5:25 PM PARASITOLOGIST Inhaled Oxygen Concentration - - Weight 72.7 kg (160 lb 4.4 oz) 12/31/2024 2:09 P M PARASITOLOGIST Height 165.1 cm (5' 5) 12/31/2024 2:09 PM PARASITOLOGIST Body Mass Index 26.67 12/31/2024 2:09 PM PARASITOLOGIST Plan of Treatment Not on file Insurance [facility] Care Teams Medical Assembly Relationship Specialty Start Date End Date Tammi Menon APRN [address] [place] [address] PCP - General Family Medicine 12/31/24
--- NOTE | 2025-04-09 11:25 | ED_ITS ---
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 Patient reports he has had chest pain constantly for 1 month. Patient has previously had a Holter monitor that was negative. Patient presented to an outside hospital last night had negative imaging, negative EKG and negative troponin. Patient states she is having some abdominal cramping and patient did initially go to [facility] per Ashlie Mcnamara but due to the patient having chest pain she was deferred back to the emergency department. Patient states the chest pain has been constant for 1 month and has been unchanged. Patient states it is left-sided and unchanging. Patient denies any associated shortness of breath with this. Our EKG here shows no evidence of acute STEMI. We discussed the case with [facility] and they are willing to take the patient back over to further evaluate her. They stated that they did not need any labs drawn the patient. UA was ordered and patient was ordered a L of IV fluids. Related Data Home Medications ?Medication ?Instructions ?Recorded ?Confirmed ?Last Taken ?Type albuterol sulfate 90 mcg/actuation 2 puff inhalation DAILY 02/04/25 02/19/25 02/18/25 History aerosol inhaler (Ventolin HFA) budesonide-formoterol HFA 80 2 puff inhalation DAILY 02/04/25 02/19/25 02/17/25 History mcg-4.5 mcg/actuation aerosol inhaler (Symbicort) ondansetron 4 mg disintegrating 4 mg PO Q8H 02/04/25 02/19/25 02/03/25 11:40 History tablet Allergies Allergy/AdvReac Type Severity Reaction Status Date / Time terbutaline Allergy Severe Anaphylactic Verified 02/26/25 13:28 Shock amoxicillin (From Amoxil) AdvReac Palpitation Verified 02/26/25 13:28 s Review of Systems 2 Review of Systems: All systems reviewed & are unremarkable except as noted in HPI and below PMFSH Past Medical History Medical History Encounter for supervision of normal in multigravida in second trimester related condition in second trimester Viral meningitis Anxiety Depression Surgical History Surgical History No pertinent past surgical history Family History Family History Grandparent Diabetes mellitus Social History Social History Smoking packs per day: 0.25 Smoking cigarettes per day: 5.0 Smoking status: Current every day smoker Tobacco type: e-cigarettes/vaping Second hand tobacco smoke exposure: No Alcohol intake: never Substance use: never Substance use type: marijuana Do You Feel Safe in your Home?: Yes Lack of Transportation: No Lack of Food: Never True Current Housing: I Have Housing Concerned About Future Housing: No Difficulty Paying Gas/Electric Bills: No Difficulty Paying for Meds: No Currently Unemployed: No Education: High School Diploma/GED Difficulty w/ Childcare or Family Care: No Gender identity (if verbalized by the patient): Female Sexual Orientation (if Verbalized by the Patient): Straight or Heterosexual Spiritual care concerns: No Exam 2 Narrative: APPEARANCE: Well appearing, no pain, no distress, well-nourished. HEAD: normocephalic, atraumatic. EYES: PERRLA/EOMI, conjunctivae clear. NOSE: Normal no drainage EARS:TMS clear with good light reflex. THROAT: Pharynx clear, no exudate. NECK: Supple. No adenopathy, no masses. RESPIRATORY: Airway patent, respirations nonlabored. Clear to auscultation bilaterally, no rales, rhonchi, wheezing. CARDIOVASCULAR: Regular rate and rhythm without murmurs rubs or gallops. ABDOMINAL: Soft, nontender, nondistended, normal bowel sounds MUSCULOSKELETAL: Moves all extremities. Strength/ROM intact, No edema, No calf tenderness. NEURO: Alert. Cranial nerves II through XII intact. Good gait. Good coordination SKIN: Warm, dry. Normal Color Course Vital Signs Vital signs: Vital Signs Pulse Rate 78 04/09/25 11:18 Respiratory Rate 2 L 04/09/25 11:18 Pulse Oximetry 98 04/09/25 11:18 Pulse Rate 78 04/09/25 14:45 Respiratory Rate 14 04/09/25 15:16 Blood Pressure 105/70 04/09/25 15:15 Pulse Oximetry 98 04/09/25 15:16 Oxygen Delivery Room Air 04/09/25 11:20 MDM - Extremity (Nontraumatic) MDM Narrative Medical decision making narrative: 25-year-old female presents emergency department for evaluation for left-sided chest pain. Patient did have a negative cardiac workup yesterday. Patient did request to be ruled out for a pulmonary embolism. Patient was not tachycardic or hypoxic and patient was normotensive have. D-dimer was ordered and this was 0.86. Patient was updated on risks of having a CT scan and patient requested to have the CT scan to further rule out a pulmonary embolism. CTA was negative for PE. No acute abnormalities on the patient's CMP UA was positive for high white blood cells leukocyte esterase positive and +4 bacteria with moderate squamous epithelial cells, urine culture was ordered. Patient is having lower abdominal cramping so patient was started on Macrobid for suspected urinary tract infection. After evaluation the emergency department patient was transferred over to OB for further evaluation. Differential Diagnosis Differential diagnosis: Likely other (Pulmonary embolism, pneumonia, ACS, UTI) Lab Data 04/09/25 12:56 Labs: Lab Results 04/09/25 04/09/25 Range/Units 11:28 12:56 D-Dimer 0.86 H (<0.48) ug/mL Sodium 135 L (137-145) mmol/L Potassium 4.1 (3.4-5.0) mmol/L Chloride 107 (98-107) mmol/L Carbon Dioxide 22 (22-30) mmol/L Anion Gap 6 (4-12) mmol/L BUN 5 L D (7-17) mg/dL Creatinine 0.48 L (0.7-1.0) mg/dL Estim Creat Clear Calc Not Reportable Estimated GFR > 60 (59 - ) Glucose 83 (65-110) mg/dL Calcium 8.9 (8.4-10.2) mg/dL Total Bilirubin 0.2 (0.2-1.3) mg/dL AST 26 (14-36) U/L ALT 12 (6-35) U/L Alkaline Phosphatase 65 (38-126) U/L Total Protein 6.8 (6.3-8.2) g/dL Albumin 3.5 (3.5-5.1) g/dL Urine Color Yellow (Yellow) Urine Appearance Clear (Clear) Urine pH 7.0 (5.0-9.0) Ur Specific [place] 1.012 (1.001-1.035) Urine Protein Negative (Negative) mg/dL Urine Glucose (UA) Negative (Negative) mg/dL Urine Ketones Negative (Negative) mg/dL Ur Blood (Man) Negative (Negative) Urine Nitrate Negative (Negative) Urine Bilirubin Negative (Negative) Urine Urobilinogen 1.0 (<2.0) mg/dL Leukocyte Esterase Rfl 1+ H (Negative) NEIL/UL Urine RBC 0-2 (0-2) /hpf Urine WBC 11-20 H (0-3) /hpf Ur Squamous Epith Cells Moderate (Few) /hpf Urine Bacteria 4+ H /hpf Urine Casts 3-5 Discharge Plan Discharge Clinical Impression: Abdominal cramping, Urinary tract infection Patient Disposition: Still a Patient Condition: Stable
[2025-04-09] MEDS: SODIUM CHLORIDE 0.9% IV 1,000 ML 999 ML IV CONT (11:38)
[2025-04-09 11:42] LABS: Add Urine Microscopic? YES; Appearance Urine Clear (Clear); Bacteria Urine 4+ /hpf; Bilirubin Urine Negative (Negative); Blood Urine Negative (Negative); Color Urine Yellow (Yellow); Glucose Urine UA Negative (Negative); Ketones Urine Negative (Negative); Leukocyte Esterase Ur 1+ LEU/UL (Negative); Nitrate Urine Negative (Negative); Protein Urine Negative (Negative); RBC Urine 0-2 /hpf (0-2); Specific Grav Ur 1.012 (1.001-1.035); Squamous Epithelial Cell Urine Moderate /hpf (Few)
[2025-04-09] MEDS: NITROFURANTOIN MONOHYD MACROCR 100 MG CAP PO (12:50)
[2025-04-09 13:38] LABS: D Dimer 0.86 ug/mL (<0.48)
[2025-04-09 13:55] LABS: Alanine Aminotransferase 12 U/L (6-35); Albumin Level 3.5 g/dL (3.5-5.1); Alkaline Phosphatase 65 U/L (38-126); Anion Gap 6 mmol/L (4-12); Aspartate Amino Transferase 26 U/L (14-36); Bilirubin,Total 0.2 mg/dL (0.2-1.3); Blood Urea Nitrogen 5 mg/dL (7-17); Calcium 8.9 mg/dL (8.4-10.2); Carbon Dioxide 22 mmol/L (22-30); Chloride 107 mmol/L (98-107); Estimated Glomerular Filt Rate > 60; Glucose 83 mg/dL (65-110); Potassium 4.1 mmol/L (3.4-5.0); Sodium 135 mmol/L (137-145); Total Protein 6.8 g/dL (6.3-8.2)
--- NOTE | 2025-04-09 15:56 | PC.NURSE ---
gave report to Toya RN in OB, stated to leave iv in place while transferring patient over to their care
--- NOTE | 2025-04-09 16:06 | OBADM ---
This patient, Yuni Mejia, admitted to the OB room [facility] Post [facility] for observation. Patient/family oriented to hospital policies and general routines including ID bracelet, bed and alarms, visiting hours, pain management, procedures, bathroom and other care routines, personal items, smoking policy, room service/diet, and visiting hours. Patient/Family are encouraged to report perceived risks to care and to ask questions if they do not understand what they are told or what they should do.
--- NOTE | 2025-04-09 16:40 | PC.NURSE ---
Called Dr. Wong with pt status. Pt transferred from ED for abdominal cramping. Pt states that she is no longer cramping and would like to go home. FHTs 135 per doppler. May D/C home.
--- NOTE | 2025-04-14 03:35 | PM.OBTRLD ---
OB - Triage/Final Diagnosis Visit Information Comments/Additional reasons for admission: I have assessed the risk for this patient, Yuni Mejia, and determined that she would benefit from observation care. Evaluation Laboratory results: Laboratory Tests 04/09/25 04/09/25 11:28 12:56 D-Dimer 0.86 H Sodium 135 L Potassium 4.1 Chloride 107 Carbon Dioxide 22 Anion Gap 6 BUN 5 L D Creatinine 0.48 L Estim Creat Clear Calc Not Reportable Estimated GFR > 60 Glucose 83 Calcium 8.9 Total Bilirubin 0.2 AST 26 ALT 12 Alkaline Phosphatase 65 Total Protein 6.8 Albumin 3.5 Urine Color Yellow Urine Appearance Clear Urine pH 7.0 Ur Specific [place] 1.012 Urine Protein Negative Urine Glucose (UA) Negative Urine Ketones Negative Ur Blood (Man) Negative Urine Nitrate Negative Urine Bilirubin Negative Urine Urobilinogen 1.0 Leukocyte Esterase Rfl 1+ H Urine RBC 0-2 Urine WBC 11-20 H Ur Squamous Epith Cells Moderate Urine Bacteria 4+ H Urine Casts 3-5 Final Diagnosis (1) Cramping affecting , antepartum: Code(s): O26.899 - Other specified related conditions, unspecified trimester; R10.9 - Unspecified abdominal pain Status: Acute
== END 2025-04-09 17:00 | disposition home or self-care (01) ==
LOC: ANHED 15:41 → ANHOBPP 16:45
PROVIDERS: Admitting Provider Obstetrics & Gynecology; Emergency Provider Emergency Medicine; Visit Provider Obstetrics & Gynecology
DX: O26.892 Other specified pregnancy related conditions, second trimester (principal); R10.9 Unspecified abdominal pain; O23.42 Unspecified infection of urinary tract in pregnancy, second trimester; N39.0 Urinary tract infection, site not specified; O99.332 Smoking (tobacco) complicating pregnancy, second trimester; F17.210 Nicotine dependence, cigarettes, uncomplicated; F17.290 Nicotine dependence, other tobacco product, uncomplicated; Z3A.17 17 weeks gestation of pregnancy; Z79.51 Long term (current) use of inhaled steroids
CPT/HCPCS: 36415; 71275; 80053; 81001; 85380; 93005; 96360; 99285; A9270; G0378; G0379; J7030; Q9967

== ENCOUNTER 2025-04-16 09:00 | Observation (INO) | payer OTHER, SELFPAY ==
[2025-04-16 09:10] VITALS: BP 112/67; PULSE 98; RESP 18; TEMP 36.6; O2SAT 100
--- NOTE | 2025-04-16 09:14 | ECG_ITS ---
Test Date: 2025-04-16 09:37:25 Measurements Intervals [place] Rate: 84 P: 56 DE: 147 QRS: 34 QRSD: 74 T: 25 QT: 341 QTc: 403 Interpretive Statements SINUS RHYTHM BASELINE ARTIFACT- I, II, AVR, AVL, AVF, V1 NORMAL ECG Compared to ECG 04/09/2025 11:25:30 Sinus arrhythmia no longer present Electronically Signed On 04-16-2025 09:59:50 CDT by Vinicio Martínez D.O.
[2025-04-16 09:31] VITALS: BP 112/61; PULSE 94; RESP 20; O2SAT 97
[2025-04-16] MEDS: SODIUM CHLORIDE 0.9% IV 1,000 ML 999 ML IV CONT (09:31)
[2025-04-16] MEDS: CLINDAMYCIN HCL 150 MG CAP 450 MG PO (09:32)
[2025-04-16 09:33] LABS: Basophils Percent Auto 0.3 % (0.2-1.2); Eosinophils Absolute Auto 0.1 K/mm3 (0-0.3); Eosinophils Percent Auto 0.8 % (0-4.4); Hematocrit 31.4 % (37.0-47.0); Immature Granulocyte Absolute 0.13 K/mm3 (0.00-0.031); Immature Granulocyte Percent A 1.4 % (0-0.5); Lymphocytes Absolute Auto 1.63 K/mm3 (0.9-3.2); Lymphocytes Percent Auto 17.5 % (18.3-44.2); Mean Corpuscular HGB Conc 31.8 g/dl (32-36); Mean Corpuscular Hemoglobin 27.3 pg (26-34); Mean Corpuscular Volume 85.8 fl (80-100); Mean Platelet Volume 9.2 fl (7.4-10.4); Monocytes Absolute Auto 0.8 K/mm3 (0.1-0.6); Neutrophils Absolute Auto 6.7 K/mm3 (1.3-6.7); Platelet Count Result 298 k/mm3 (150-375); Red Blood Count 3.66 M/mm3 (4.2-5.4); Red Cell Distribution Width 13.4 % (11.5-14.5); White Blood Count 9.3 K/mm3 (4.5-10.0)
[2025-04-16] MEDS: ACETAMINOPHEN 325 MG TABLET 650 MG PO (09:33)
[2025-04-16] MEDS: diphenhydrAMINE HCl INJ 50 MG/ML VIAL 25 MG IV PUSH (09:34)
[2025-04-16 09:42] LABS: Anion Gap 7 mmol/L (4-12); Blood Urea Nitrogen 7 mg/dL (7-17); Calcium 9.1 mg/dL (8.4-10.2); Carbon Dioxide 22 mmol/L (22-30); Chloride 106 mmol/L (98-107); Estimated CRCL calculation 171 ml/min; Estimated Glomerular Filt Rate > 60; Glucose 114 mg/dL (65-110); Potassium 3.6 mmol/L (3.4-5.0); Sodium 135 mmol/L (137-145)
--- NOTE | 2025-04-16 09:53 | ED_ITS ---
HPI - Headache General Chief Complaint: Headache Stated Complaint: dizzy, h/a, 20 weeks preg, abd pain, SOB Time Seen by Provider: 04/16/25 09:13 History of Present Illness HPI Narrative: Patient at 20wk preg has been having headache for months, current KINNEY ongoing for 2 weeks, now associated with some dizziness and nausea and photophobia. Also having intermittent right abdominal pain and shortness of breath with the pain but none currently. Seen recently at outside hospital and started on antibiotics for tooth infection. Related Data Home Medications ?Medication ?Instructions ?Recorded ?Confirmed ?Last Taken ?Type albuterol sulfate 90 mcg/actuation 2 puff inhalation DAILY 02/04/25 02/19/25 02/18/25 History aerosol inhaler (Ventolin HFA) budesonide-formoterol HFA 80 2 puff inhalation DAILY 02/04/25 02/19/25 02/17/25 History mcg-4.5 mcg/actuation aerosol inhaler (Symbicort) ondansetron 4 mg disintegrating 4 mg PO Q8H 02/04/25 02/19/25 02/03/25 11:40 History tablet Allergies Allergy/AdvReac Type Severity Reaction Status Date / Time terbutaline Allergy Severe Anaphylactic Verified 04/16/25 09:20 Shock amoxicillin (From Amoxil) AdvReac Palpitation Verified 04/16/25 09:20 s Review of Systems 2 Review of Systems: All systems reviewed & are unremarkable except as noted in HPI and below PMFSH Past Medical History Medical History Encounter for supervision of normal in multigravida in second trimester related condition in second trimester Viral meningitis Anxiety Depression Surgical History Surgical History No pertinent past surgical history Family History Family History Grandparent Diabetes mellitus Social History Social History Smoking packs per day: 0.25 Smoking cigarettes per day: 5.0 Smoking status: Current every day smoker Tobacco type: e-cigarettes/vaping Second hand tobacco smoke exposure: No Alcohol intake: never Substance use: never Substance use type: marijuana Do You Feel Safe in your Home?: Yes Lack of Transportation: No Lack of Food: Never True Current Housing: I Have Housing Concerned About Future Housing: No Difficulty Paying Gas/Electric Bills: No Difficulty Paying for Meds: No Currently Unemployed: No Education: Grade School Difficulty w/ Childcare or Family Care: No Gender identity (if verbalized by the patient): Female Sexual Orientation (if Verbalized by the Patient): Straight or Heterosexual Spiritual care concerns: No Exam 2 Narrative: EXAMINATION OF ORGAN SYSTEMS/BODY AREAS: Constitutional: Vital signs per nursing GENERAL: Appears uncomfortable HEAD: Normal with no signs of head trauma. EYES: EOMI, conjunctiva normal ENT: Hearing grossly intact, no trismus LUNGS: Nonlabored breathing. HEART: [Regular rate and rhythm] ABD: [Soft], [nontender to palpation], gravid EXT: Normal range of motion SKIN: [No rashes or lesions.] NEURO: [Alert and oriented x 3. No gross focal sensory or strength deficits.] PSYCH: Normal affect Course Vital Signs Vital signs: Vital Signs Temperature 97.9 F 04/16/25 09:10 Pulse Rate 98 04/16/25 09:10 Respiratory Rate 18 04/16/25 09:10 Blood Pressure 112/67 04/16/25 09:10 Pulse Oximetry 100 04/16/25 09:10 Oxygen Delivery Room Air 04/16/25 09:10 Temperature 97.9 F 04/16/25 09:10 Pulse Rate 94 04/16/25 09:31 Respiratory Rate 20 04/16/25 09:31 Blood Pressure 112/61 04/16/25 09:31 Pulse Oximetry 97 04/16/25 09:31 Oxygen Delivery Room Air 04/16/25 09:10 MDM - Headache MDM Narrative Medical decision making narrative: Patient presenting with headache, dizziness, toothache, she also had some abdominal discomfort and shortness of breath that has now resolved. Currently taking Macrobid for UTI. She is given Tylenol here, IV fluids, and she refused the Reglan, on re- evaluation she says that the headache has completely resolved and she feels better, however as she was being discharged, she suddenly started having severe lower abdominal pain, she states that it almost feels like contractions but is constant. I did perform a bedside ultrasound, I was able to see good heart rate and movement, patient is not having any vaginal bleeding, however I did discuss this with her OBGYN Dr Mcginnis who agreed if she may needed go upstairs to OB for further observation and treatment as needed. Discussed with patient was agreeable to this plan. Patient transferred to OB in stable condition. Lab Data 04/16/25 09:26 04/16/25 09:26 Labs: Lab Results 04/16/25 04/16/25 Range/Units 09:26 10:39 WBC 9.3 (4.5-10.0) K/mm3 RBC 3.66 L (4.2-5.4) M/mm3 Hgb 10.0 L (12.0-15.0) g/dL Hct 31.4 L (37.0-47.0) % MCV 85.8 (80-100) fl MCH 27.3 (26-34) pg MCHC 31.8 L (32-36) g/dl RDW 13.4 (11.5-14.5) % Plt Count 298 (150-375) k/mm3 MPV 9.2 (7.4-10.4) fl Immature Gran % (Auto) 1.4 H (0-0.5) % Neut % (Auto) 72.0 (45.5-73.1) % Lymph % (Auto) 17.5 L (18.3-44.2) % [place] % (Auto) 8.0 (2.6-8.5) % Eos % (Auto) 0.8 (0-4.4) % Baso % (Auto) 0.3 (0.2-1.2) % Lymph # (Auto) 1.63 (0.9-3.2) K/mm3 [place] # (Auto) 0.8 H (0.1-0.6) K/mm3 Eos # (Auto) 0.1 (0-0.3) K/mm3 Baso # (Auto) 0.0 (0.0-0.1) K/mm3 Abs Immat Gran (auto) 0.13 H (0.00-0.031) K/mm3 Absolute Neuts (auto) 6.7 (1.3-6.7) K/mm3 Absolute Nucleated RBC 0.000 (0.0-0.012) K/mm3 Nucleated RBC % 0.0 (0.0-0.2) % Sodium 135 L (137-145) mmol/L Potassium 3.6 (3.4-5.0) mmol/L Chloride 106 (98-107) mmol/L Carbon Dioxide 22 (22-30) mmol/L Anion Gap 7 (4-12) mmol/L BUN 7 (7-17) mg/dL Creatinine 0.42 L (0.7-1.0) mg/dL Estim Creat Clear Calc 171 ml/min Estimated GFR > 60 (59 - ) Glucose 114 H (65-110) mg/dL Calcium 9.1 (8.4-10.2) mg/dL Urine Color Pending Urine Appearance Pending Urine pH Pending Ur Specific [place] Pending Urine Protein Pending Urine Glucose (UA) Pending Urine Ketones Pending Ur Blood (Man) Pending Urine Nitrate Pending Urine Bilirubin Pending Urine Urobilinogen Pending Leukocyte Esterase Rfl Pending Influenza A (RT-PCR) Negative (Negative) Influenza B (RT-PCR) Negative (Negative) RSV (RT-PCR) Negative (Negative) SARS-CoV-2 RNA (RT-PCR) Negative (Negative) Discharge Plan Discharge Clinical Impression: Cramping affecting , antepartum, Lower abdominal pain Patient Disposition: Still a Patient Condition: Stable
[2025-04-16 10:09] LABS: Influenza A QL RT-PCR Negative (Negative); Influenza B QL RT-PCR Negative (Negative); RSV RNA, RT-PCR Negative (Negative); SARS-CoV-2 RNA PCR Negative (Negative)
--- NOTE | 2025-04-16 11:07 | OBADM ---
This patient, Yuni Mejia, admitted to the OB room [facility] for observation from ED. Patient/family oriented to hospital policies and general routines including ID bracelet, bed and alarms, visiting hours, pain management, procedures, bathroom and other care routines, personal items, smoking policy, room service/diet, and visiting hours. Patient/Family are encouraged to report perceived risks to care and to ask questions if they do not understand what they are told or what they should do.
[2025-04-16 11:15] VITALS: TEMP 36.6; BMI 28.6
[2025-04-16 11:26] VITALS: BP 100/54; PULSE 81
--- NOTE | 2025-04-16 11:35 | PC.NURSE ---
Called KRISTEN Estrada with pt status. Pt brought from ED for complaints of cramping. Pt states that she is no longer cramping. FHTs 140 per doppler. February D/C home.
[2025-04-16 11:38] LABS: Add Urine Microscopic? NO; Appearance Urine Clear (Clear); Bilirubin Urine Negative (Negative); Blood Urine Negative (Negative); Color Urine Yellow (Yellow); Glucose Urine UA Negative (Negative); Ketones Urine Negative (Negative); Leukocyte Esterase Ur Negative LEU/UL (Negative); Nitrate Urine Negative (Negative); Protein Urine Negative (Negative); Specific Grav Ur 1.011 (1.001-1.035); pH Urine 7.5 (5.0-9.0)
--- NOTE | 2025-04-19 15:07 | PM.OBTRLD ---
OB - Triage/Final Diagnosis Visit Information Date of evaluation: 04/16/25 Reason for evaluation: other (cramping) Comments/Additional reasons for admission: I have assessed the risk for this patient, Yuni Mejia, and determined that she would benefit from observation care. Evaluation Laboratory results: Laboratory Tests 04/16/25 04/16/25 09:26 10:39 WBC 9.3 RBC 3.66 L Hgb 10.0 L Hct 31.4 L MCV 85.8 MCH 27.3 MCHC 31.8 L RDW 13.4 Plt Count 298 MPV 9.2 Immature Gran % (Auto) 1.4 H Neut % (Auto) 72.0 Lymph % (Auto) 17.5 L [place] % (Auto) 8.0 Eos % (Auto) 0.8 Baso % (Auto) 0.3 Lymph # (Auto) 1.63 [place] # (Auto) 0.8 H Eos # (Auto) 0.1 Baso # (Auto) 0.0 Abs Immat Gran (auto) 0.13 H Absolute Neuts (auto) 6.7 Absolute Nucleated RBC 0.000 Nucleated RBC % 0.0 Sodium 135 L Potassium 3.6 Chloride 106 Carbon Dioxide 22 Anion Gap 7 BUN 7 Creatinine 0.42 L Estim Creat Clear Calc 171 Estimated GFR > 60 Glucose 114 H Calcium 9.1 Urine Color Yellow Urine Appearance Clear Urine pH 7.5 Ur Specific [place] 1.011 Urine Protein Negative Urine Glucose (UA) Negative Urine Ketones Negative Ur Blood (Man) Negative Urine Nitrate Negative Urine Bilirubin Negative Urine Urobilinogen 1.0 Leukocyte Esterase Rfl Negative Influenza A (RT-PCR) Negative Influenza B (RT-PCR) Negative RSV (RT-PCR) Negative SARS-CoV-2 RNA (RT-PCR) Negative
== END 2025-04-16 11:45 | disposition home or self-care (01) ==
LOC: ANHED 10:49 → ANHOBPP 11:13
PROVIDERS: Admitting Provider Obstetrics & Gynecology; Emergency Provider Emergency Medicine; Visit Provider Obstetrics & Gynecology
DX: O26.892 Other specified pregnancy related conditions, second trimester (principal); R25.2 Cramp and spasm; R10.30 Lower abdominal pain, unspecified; O23.42 Unspecified infection of urinary tract in pregnancy, second trimester; N39.0 Urinary tract infection, site not specified; O99.342 Other mental disorders complicating pregnancy, second trimester; F32.A Depression, unspecified; F41.9 Anxiety disorder, unspecified; O99.332 Smoking (tobacco) complicating pregnancy, second trimester; F17.210 Nicotine dependence, cigarettes, uncomplicated; F17.290 Nicotine dependence, other tobacco product, uncomplicated; Z3A.18 18 weeks gestation of pregnancy; Z20.822 Contact with and (suspected) exposure to COVID-19; Z79.2 Long term (current) use of antibiotics; Z79.51 Long term (current) use of inhaled steroids; Z79.899 Other long term (current) drug therapy
CPT/HCPCS: 36415; 80048; 81003; 85025; 87637; 93005; 96361; 96374; 96375; 99285; A9270; G0378; J1200; J7030

== ENCOUNTER 2025-05-21 07:51 | Observation (INO) | payer OTHER, SELFPAY ==
[2025-05-21] VITALS (12 sets, daily range): BP systolic 86–109; BP diastolic 50–70; PULSE 68–98; TEMP 36.7; O2SAT 94–99; BMI 28.2
--- NOTE | ~2025-05-21 | CT_ITS ---
EXAMINATION: CT BRAIN W/O DATE: 05/21/2025 09:01 INDICATION: Headache for 10 days. . TECHNIQUE: Computed tomography (CT) of the head was performed without intravenous contrast. The dose- length product was 529.67 mGy-cm. Automated exposure control and iterative reconstruction technique w ere employed. COMPARISON: CT dated 10/25/2004 FINDINGS: Normal brain parenchymal volume for age. Normal davis-white differentiation. No acute intrac ranial hemorrhage, infarction, mass or mass effect. No ventriculomegaly or midline shift. Midline sagittal images demonstrate a normal corpus callosum, c raniovertebral junction and sella turcica. Basilar cisterns are patent. Paranasal sinuses and mastoids are pneumatized. No depressed skull fractures. IMPRESSION: 1. No acute intracranial abnormality. Reviewed, dictated and finalized at location A.
--- OUTSIDE RECORDS SUMMARY | 2025-05-21 07:57 | XMS_ITS | Clinical Summary ---
Author Organization [facility] Address Replaced by [facility] [place] [address] Care Team Providers Care Antique Collector Name Role Phone Steph Hightower MD Unavailable Tanner Paige MD Primary Care Provider Janell Celaya APNP Unavailable Allergies Active Allergy Reactions Criticality Noted Date Comments Amoxicillin Other (see comment) 07/16/2024 Irregular heart rate Terbutaline Anaphylaxis High 07/19/2022 Medications albuterol sulfate [...] needed for Nausea. 20 tablet 5 Active busPIRone (BUSPAR) 5 MG tablet Take 1 tablet (5 mg total) by mouth 3 (three) times daily as needed (anxiety). 025 Discontinu ed(Error) nitrofurantoin, macrocrystal-monoh ydrate, (MACROBID) 100 MG capsuleIndications :Abdominal pain in , second trimester (HHS/HCC) Take 1 capsule (100 mg total) by mouth 2 (two) times daily for 7 days. 14 capsule 025 Active Problems Problem Noted Date Diagnosed Date ([facility]) 05/13/2024 Headache 05/13/2024 Estimated Date of Delivery Comme nts Yes 09/11/2025 Based on Other B asis, per pt Encounters Date Type Department Care Team Description 05/21/2025 5:35 AM CDT - 05/21/2025 6:54 AM CDT Hospital Encounter [facility] [address] [place] [address] Nate Alvarez MD (Headache) Discharge Disposition: Home or Self Care (Routine Discharge) 05/21/2025 Travel 05/19/2025 Telephone [facility] [address] [place] [address] Steph Hightower MD Appointment Reminder 05/19/2025 Travel 05/18/2025 Orders Only [facility] [place] [address] [place] [address] Steph Hightower MD 05/15/2025 1:05 PM CDT - 05/15/2025 3:00 PM CDT Emergency [facility] [address] [place] [address] Nacho Breen MD Medical Problem Discharge Disposition: Home or Self Care (Routine Discharge) 05/15/2025 Travel 05/13/2025 12:46 PM CDT - 05/13/2025 2:22 PM CDT Hospital Encounter [facility] [address] [place] [address] Nate Alvarez MD Discharge Disposition: Home or Self Care (Routine Discharge) 04/02/2025 Abstract [facility] [address] [place] [address] Abstract, Doc Pccl 04/01/2025 Telephone [facility] [address] [place] [address] Steph Hightower MD Appointment Request 03/29/2025 Telephone [facility] [address] [place] [address] Steph Hightower MD Referral 03/24/2025 Scan [facility] [address] [place] [address] Scanned, Doc Pccl 03/16/2025 4:27 PM CDT - 03/16/2025 6:50 PM CDT Emergency [facility] [address] [place] [address] [place] [address] Kaitlin Colon MD Vomiting Discharge Disposition: Home or Self Care (Routine Discharge) 03/16/2025 Travel 03/12/2025 7:35 PM CDT - 03/12/2025 11:44 PM CDT Emergency [facility] [address] [place] [address] [place] [address] Tien Mehta, DO Chest Pain Discharge Disposition: Home or Self Care (Routine Discharge) 03/12/2025 Travel 03/05/2025 10:32 AM CDT - 03/05/2025 11:14 AM CDT Emergency [facility] [address] [place] [address] [place] [address] Fantasma Pedroza, DO Gi Problem Discharge Disposition: Home or Self Care (Routine Discharge) 03/05/2025 Travel 02/28/2025 5:59 PM CDT - 02/28/2025 7:58 PM CDT Emergency [facility] [address] [place] [address] [place] [address] Fantasma Pedroza, DO Vomiting Discharge Disposition: Home or Self Care (Routine Discharge) 02/28/2025 Travel from Last 3 Months Family History Medical History Relation Comments Heart Attack Maternal Grandfather Stroke Maternal Grandfather Hypertension Mother Lupus Mother Relation Status Comments Maternal Grandfather Mother Paternal Grandfather Social History Tobacco Use Types Packs/Day Years Used Date Smoking Tobacco: Former Cigarettes Passive Smoke Exposure: Current Smokeless Tobacco: Never Tobacco Cessation:Counseling Given: Not [...] Recorded Patient Health Questionnaire-2 Score 0 05/13/2024 [facility] [...] Estimated Date of Delivery Comme nts Yes 09/11/2025 Based on Other B asis, per pt Sex and Gender Information Value Date Recorded Sex Assigned at Female 05/13/2024 1:22 AM CDT Legal Sex Female 8:30 AM CDT Gender Identity Female 05/13/2024 1:22 AM CDT Sexual Orientation Straight 05/13/2024 1: 22 AM CDT Last Filed Vital Signs Vital Sign Reading Time Taken Comments Blood Pressure 110/59 05/21/2025 5:41 AM CDT Pulse 84 05/21/2025 5:41 AM CDT Temperature 36.2 C (97.2 F) 05/21/2025 5:44 AM CDT Respiratory Rate 17 05/21/2025 5:41 AM CDT Oxygen Saturation 96% 05/21/2025 5:41 AM CDT Inhaled Oxygen Concentration - - Weight 76.2 kg (168 lb) 05/15/2025 1:08 PM CDT Height 165.1 cm (5' 5) 05/15/2025 1:08 PM CDT Body Mass Index 27.96 05/15/2025 1:08 PM CDT Plan of Treatment Health Maintenance Due Date Last Done Comments Annual Physical 2002 HPV Vaccines (2 - 3-dose series) 02/02/2017 01/05/2017 DTaP, Tdap and Td Vaccines (7 - Td or Tdap) 06/21/2022 06/21/2012, 06/29/2004, 08/30/2000, Additional history exists COVID-19 Vaccine ( season) 2024 RSV Immunization or 60+ Years (1 - Risk 1-dose series) 07/17/2025 Cervical Cancer Screening Pap Smear (Age 21 [...] Procedure Name Priority Date/Time Associated Diagnosis Comments URINALYSIS Routine 05/21/2025 5:40 AM CDT Headache TROPONIN, QUANT STAT 05/15/2025 1:45 PM CDT COMPREHENSIVE METABOLIC PANEL STAT 05/15/2025 1:45 PM CDT CBC W/DIFF AUTOMATED STAT 05/15/2025 1:45 PM CDT ECG 12-LEAD STAT 05/15/2025 1:42 PM CDT NONSTRESS TEST Routine 05/13/2025 1:11 PM CDT ([facility]) URINE BACTERIA CULTURE Routine 1:10 PM CDT ([facility]) HC URINALYSIS AUTO W/MICRO Routine 05/13/2025 1:10 PM CDT ([facility]) URINE BACTERIA CULTURE STAT 5:16 PM CDT HC URINALYSIS AUTO W/MICRO STAT 03/16/2025 5:16 PM CDT THYROXINE, FREE (FT4) STAT 03/16/2025 5:15 PM CDT TSH W/REFLEX STAT 03/16/2025 5:15 PM CDT MAGNESIUM STAT 03/16/2025 5:15 PM CDT TROPONIN, QUANT STAT 03/16/2025 5:15 PM CDT COMPREHENSIVE METABOLIC PANEL STAT 03/16/2025 5:15 PM CDT CBC W/DIFF AUTOMATED STAT 03/16/2025 5:15 PM CDT ECG 12-LEAD Routine 03/16/2025 5:05 PM CDT TROPONIN, QUANT STAT 03/12/2025 10:09 PM CDT THYROXINE, FREE (FT4) STAT 03/12/2025 7:56 PM CDT TSH W/REFLEX STAT 03/12/2025 7:56 PM CDT TROPONIN, QUANT STAT 03/12/2025 7:56 PM CDT COMPREHENSIVE METABOLIC PANEL STAT 03/12/2025 7:56 PM CDT CBC W/DIFF AUTOMATED STAT 03/12/2025 7:56 PM CDT ECG 12-LEAD Routine 03/12/2025 7:32 PM CDT HCG QUANT (SERUM)-CHORIONIC GONADOTROPIN STAT 02/28/2025 6:33 PM CDT AMYLASE STAT 02/28/2025 6:33 PM CDT LIPASE STAT 02/28/2025 6:33 PM CDT COMPREHENSIVE METABOLIC PANEL STAT 02/28/2025 6:33 PM CDT CBC W/DIFF AUTOMATED STAT 02/28/2025 6:33 PM CDT HC URINALYSIS AUTO W/MICRO STAT 02/28/2025 6:12 PM CDT from Last 3 Months Results * (ABNORMAL) URINALYSIS (05/21/2025 5:40 AM CDT) Only the most recent of4 resultswithin the time period is included. COLOR (U) YELLOW 05/21/2025 5:58 AM CDT [facility] TRANSPARENCY SLIGHTLY CLOUDY 05/21/2025 5:58 AM CDT [facility] SPECIFIC GRAVITY (U) 1.030(H) 1.000 - 1.025 05/21/2025 5:58 AM CDT [facility] Comment:EQUAL TO OR GREATER THAN U PH 5.5 5.0 - 8.0 05/21/2025 5:58 AM CDT [facility] LEUKOCYTES (U) TRACE(A) NEGATIVE 05/21/2025 5:58 AM CDT [facility] NITRITES NEGATIVE NEGATIVE 05/21/2025 5:58 AM CDT [facility] PROTEIN RANDOM (U) NEGATIVE NEGATIVE 05/21/2025 5:58 AM CDT [facility] GLUCOSE (U) NEGATIVE NEGATIVE 05/21/2025 5:58 AM CDT [facility] KETONES MG/DL (U) NEGATIVE NEGATIVE 05/21/2025 5:58 AM CDT [facility] UROBILINOGEN 0.2 <1.0 EU/DL 05/21/2025 5:58 AM CDT [facility] BILIRUBIN (U) NEGATIVE NEGATIVE 05/21/2025 5:58 AM CDT [facility] BLOOD (U) NEGATIVE NEGATIVE 05/21/2025 5:58 AM CDT [facility] WBC/HPF 0-5 0 - 5 /HPF 05/21/2025 5:58 AM CDT [facility] RBC/HPF 0-5 0 - 5 /HPF 05/21/2025 5:58 AM CDT [facility] EPI/LPF RARE /LPF 05/21/2025 5:58 AM CDT [facility] URINE SPECIMEN OBTAINED BY CLEAN CATCH PROCEDURE / Unknown 05/21/2025 5:40 AM CDT Nate Alvarez MD URINE ORDERABLES Final Result [facility] [address] [place] [address], * (ABNORMAL) COMPREHENSIVE METABOLIC PANEL (05/15/2025 1:45 PM CDT) Only the most recent of4 resultswithin the time period is included. SODIUM S/P/B 138 136 - 145 MMOL/L 05/15/2025 2:20 PM CDT [facility] POTASSIUM S/P/B 3.5 3.5 - 5.1 MMOL/L 05/15/2025 2:20 PM CDT [facility] CHLORIDE S/P/B 104 98 - 107 MMOL/L 05/15/2025 2:20 PM CDT [facility] CO2 24.7 21.0 - 32.0 MMOL/L 05/15/2025 2:20 PM T [facility] GLUCOSE 90 70 - 99 MG/DL 05/15/2025 2:20 PM T [facility] Comment: FASTING GLUCOSE 100 TO 125 MG/DL IS CONSISTENT WITH IMPAIRED FASTING GLUCOSE. FASTING GLUCOSE >125 MG/DL IS CONSISTENT WITH DIABETES. RANDOM GLUCOSE >200 MG/DL WITH HYPERGLYCEMIC SYMPTOMS IS CONSISTENT WITH DIABETES. PER ADA GUIDELINES BUN 7 6 - 24 MG/DL 05/15/2025 2:20 PM T [facility] CREATININE S/P/B 0.42(L) 0.55 - 1.02 MG/DL 05/15/2025 2:20 PM CDT [facility] CALCIUM S/P/B 8.6 8.4 - 10.5 MG/DL 05/15/2025 2:20 PM T [facility] BILIRUBIN TOTAL S/P/B 0.1(L) 0.2 - 1.0 MG/DL 05/15/2025 2:20 PM [facility] Comment: THIS ASSAY IS NOT RECOMMENDED FOR PATIENTS UNDERGOING TREATMENT WITH ELTROMBOPAG DUE TO THE POTENTIAL FOR FALSELY ELEVATED RESULTS. ALKALINE PHOSPHATASE S/P/B 66 37 - 98 U/L 05/15/2025 2:20 PM T [facility] AST 12(L) 15 - 37 U/L 05/15/2025 2:20 PM [facility] ALT 11(L) 14 - 59 U/L 05/15/2025 2:20 PM T [facility] TOTAL PROTEIN S/P/B 6.0(L) 6.4 - 8.2 G/DL 05/15/2025 2:20 PM T [facility] ALBUMIN S/P/B 2.3(L) 3.4 - 5.0 G/DL 05/15/2025 2:20 PM T [facility] ANION GAP 9.3 5.0 - 15.0 MMOL/L 05/15/2025 2:20 PM CDT [facility] OSMOLALITY (CALC) 284 MOSM/KG 025 2:20 PM CDT [facility] Comment:REFERENCE RANGE NOT ESTABLISHED GFR ESTIMATE >90 >89 ML/MIN/1. 73 M2 05/15/2025 2:20 PM CDT [facility] GFR NOTES GFR REFERENCE S: 05/15/2025 2:20 PM CDT [facility] Comment: THE ESTIMATED GFR [...] ml/min/1.73 m2 G5,KIDNEY FAILURE: <15 ml/min/1.73 m2 05/15/2025 1:45 PM CDT us Nacho Breen MD LABORATORY Final Result [facility] [address] [place] [address], * (ABNORMAL) CBC W/DIFF AUTOMATED (05/15/2025 1:45 PM CDT) Only the most recent of4 resultswithin the time period is included. WBC 10.74 4.00 - 10.80 x10'3/uL 05/15/2025 1:56 PM CDT [facility] RBC 3.46(L) 4.10 - 5.40 x10'6/uL 05/15/2025 1:56 PM CDT [facility] HGB 9.4(L) 12.0 - 16.0 G/DL 05/15/2025 1:56 PM CDT [facility] HCT 29.0(L) 36.0 - 47.0 % 05/15/2025 1:56 PM CDT [facility] MCV 83.8 78.0 - 100.0 FL 05/15/2025 1:56 PM CDT [facility] MCH 27.2 27.0 - 31.0 PG 05/15/2025 1:56 PM CDT [facility] MCHC 32.4(L) 33.0 - 36.0 G/DL 05/15/2025 1:56 PM CDT [facility] RDW 12.8 11.5 - 14.5 % 05/15/2025 1:56 PM CDT [facility] PLT 269 150 - 350 x10'3/uL 05/15/2025 1:56 PM CDT [facility] MPV 9.4 7.4 - 10.4 FL 05/15/2025 1:56 PM CDT [facility] CBC COMMENT NORMAL REFERENCE RANGE NOT ESTABLISHED FOR THE PROPORTIONAL LEUKOCYTE DIFFERENTIAL. 05/15/2025 1:56 PM CDT [facility] NEUTROPHILS % 70.1 % 05/15/2025 1:56 PM CDT [facility] LYMPHOCYTES % 16.9 % 05/15/2025 1:56 PM CDT [facility] MONOCYTES % 10.3 % 05/15/2025 1:56 PM CDT [facility] EOSINOPHILS % 1.1 % 05/15/2025 1:56 PM CDT [facility] BASOPHILS % 0.4 % 05/15/2025 1:56 PM CDT [facility] IMMATURE GRANS % 1.2 % 05/15/20 1:56 PM CDT [facility] NRBC % 0.0 % 05/15/2025 1:56 PM CDT [facility] ABS. NEUTROPHILS 7.52 1.60 - 8.30 x10'3/uL 05/15/2025 1:56 PM CDT [facility] ABS. LYMPHOCYTES 1.82 0.80 - 4.70 x10'3/uL 05/15/2025 1:56 PM CDT [facility] ABS. MONOCYTES 1.11 0.00 - 1.50 x10'3/uL 05/15/2025 1:56 PM CDT [facility] ABS. EOSINOPHILS 0.12 0.00 - 0.40 x10'3/uL 05/15/2025 1:56 PM CDT [facility] ABS. BASOPHILS 0.04 0.00 - 0.20 x10'3/uL 05/15/2025 1:56 PM CDT [facility] ABS. IMMATURE GRANULOCYTES 0.13(H) 0.00 - 0.03 x10'3/uL 05/15/2025 1:56 PM CDT [facility] ABS. NUCLEATED RBC'S 0.00 0.00 - 0.01 x10'3/uL 05/15/2025 1:56 PM CDT [facility] 05/15/2025 1:45 PM CDT us Nacho Breen MD LABORATORY Final Result [facility], [id number] [place] [address], * TROPONIN, QUANT (05/15/2025 1:45 PM CDT) Only the most recent of4 resultswithin the time period is included. TROPONIN I HIGH SENSITIVITY 4 0 - 51 ng/L 05/15/2025 2:20 PM CDT [facility] 05/15/2025 1:45 PM CDT us Nacho Breen MD LABORATORY Final Result [facility] [address] [address], * ECG 12 lead (05/15/2025 1:42 PM CDT) Only the most recent of3 resultswithin the time period is included. 05/15/2025 1:42 PM CDT Narrative [facility] - 05/15/2025 7:17 PM [address]T [address] [place] [address] Test Date: 2025-05-15 Pat Name: LIBRADO MEJIA Department: 3 Room: EXAM 707 Gender: Female Chart Snatcher: : 2000 Requested By: NACHO BREEN Order Number: [id number] Reading MD: Jose Marie Measurements Intervals [place] Rate: 79 P: 60 NE: 167 QRS: 69 QRSD: 77 T: 54 QT: 349 QTc: 400 Interpretive Statements SINUS RHYTHM Procedure Note Jose Marie MD - 05/15/[address] [place] [address] Test Date: 2025-05-15 Pat Name: LIBRADO MEJIA Department: 3 Room: EXAM 707 Gender: Female Chart Snatcher: : 2000 Requested By: NACHO BREEN Order Number: [id number] Reading MD: Jose Marie Measurements Intervals [place] Rate: 79 P: 60 NE: 167 QRS: 69 QRSD: 77 T: 54 QT: 349 QTc: 400 Interpretive Statements SINUS RHYTHM us Nacho Breen MD ECG ORDERABLES Final Result [facility] * URINE BACTERIA CULTURE (05/13/2025 1:10 PM CDT) Only the most recent of2 resultswithin the time period is included. SPEC DESCRIPTION URINE CLEAN CATCH 05/13/2025 2:08 PM CDT [facility] SPECIAL REQUESTS NO SPECIAL REQUEST 05/13/2025 2:08 PM CDT [facility] CULTURE RESULT NO GROWTH (< OR = 1,000 CFU/ML) 05/15/2025 12:36 PM CDT [facility] URINE SPECIMEN OBTAINED BY CLEAN CATCH PROCEDURE / Unknown 05/13/2025 1:10 PM CDT 05/13/2025 9:16 PM CDT Nate Alvarez MD MICROBIOLOGY - GENERAL ORDERAB LES Final Result Performing Organization Address [facility] de Phone Number [facility] [address] [place] [address], [place] [phone] [id number] [facility] [address] [place] [address], * (ABNORMAL) TSH W/REFLEX (03/16/2025 5:15 PM CDT) Only the most recent of2 resultswithin the time period is included. TSH 0.102(L) 0.358 - 3.740 uIU/ML 03/16/2025 6:01 PM CDT [facility] Comment: ASSAY PERFORMED BY CHEMILUMINESCENT IMMUNOASSAY METHODOLOGY USING SIEMENS DIMENSION REAGENT. PATIENT RESULTS DETERMINED BY ASSAYS FROM DIFFERENT MANUFACTURERS AND/OR BY DIFFERENT METHODS MAY NOT BE COMPARABLE. 03/16/2025 5:15 PM CDT Kaitlin Colon MD LABORATORY Final Resul t Performing Organization Address [facility] Co de Phone Number [facility] [address] [place] [address], [place] [phone] * THYROXINE, FREE (FT4) (03/16/2025 5:15 PM CDT) Only the most recent of2 resultswithin the time period is included. FREE T4 0.76 0.76 - 1.46 NG/DL 03/16/2025 6:24 PM CDT [facility] 03/16/2025 5:15 PM CDT Kaitlin Colon MD LABORATORY Final Resul t Performing Organization Address City/[facility]/ZIP Co de Phone Number [facility] [address] [place] [address], * MAGNESIUM (03/16/2025 5:15 PM CDT) MAGNESIUM 1.8 1.8 - 2.4 MG/DL 03/16/2025 6:01 PM CDT [facility] 03/16/2025 5:15 PM CDT Kaitlin Colon MD LABORATORY Final Resul t Performing Organization Address [facility] de Phone Number [facility] [address] [place] [address], * (ABNORMAL) HCG QUANT (SERUM)-CHORIONIC GONADOTROPIN (02/28/2025 6:33 PM CDT) HCG QUANTITATIVE 146,741(H ) 0.0 - 6.0 MIU/ML 02/28/2025 7:30 PM CDT [facility] Comment: WEEKS OF REFERENCE [...] CDT Fantasma Pedroza DO LABORATORY Final Result Performing Organization Address City/[facility]/ZIP Co de Phone Number [facility] [address] [place] [id number], * AMYLASE (02/28/2025 6:33 PM CDT) AMYLASE S/P/B 61 25 - 115 UNITS/L 02/28/2025 7:30 PM CDT [facility] 02/28/2025 6:33 PM CDT Fantasma Pedroza DO LABORATORY Final Result Performing Organization Address [facility]/ZIP Co de Phone Number [facility] [address] [place] [address], * LIPASE (02/28/2025 6:33 PM CDT) LIPASE 27 16 - 77 UNITS/L 02/28/2025 7:30 PM CDT [facility] 02/28/2025 6:33 PM CDT Fantasma Pedroza DO LABORATORY Final Result Performing Organization Address [facility] de Phone Number [facility] [address] [place] [id number], from Last 3 Months Insurance [employer] Care Teams Antique Collector Relationship Specialty Start Date End Date Tanner Paige MD [address] [place] [address] PCP - General FAMILY PRACTICE 07/01/24 Steph Hightower MD [address] [place] [address] Consulting Physician CARDIOVASCULAR DISEASE 11/07/22 Janell Celaya APNP [address] [place] [address] NURSE PRACTITIONER 12/01/24
--- OUTSIDE RECORDS SUMMARY | 2025-05-21 07:57 | XMS_ITS | Clinical Summary ---
Author Organization [facility] [address] - [address] [facility] [address] [place] [address] Phone Care Team Providers Care Tracer Bullet Section Supervisor Name Role Phone Unavailable Primary Care Provider Unavailabl e Allergies No known active allergies Medications vits15/iron/fol ic/dss ( VIT 49-STUJ-TSOXO-D SS ORAL) Take by mouth. Activ e budesonide-form oteroL (SYMBICORT) 80-4.5 mcg/actuation HFA Aerosol Inhaler Take 2 Puffs by inhalation 2 times daily. Active albuterol sulfate HFA 90 mcg/actuation aerosol inhaler Take 2 Puffs by inhalation every 6 hours as needed for Shortness of Breath. Active buspirone HCl (BUSPAR ORAL) Take 25 mg by mouth. Active butalbital-acet aminophen-caffe ine (FIORICET) 50-325-40 mg tablet Take 1 Tablet by mouth every 4 hours as needed for Migraine. Active Encounters Date Type Department Care Team Description 04/27/2025 9:47 AM CDT - 04/27/2025 10:50 AM CDT Emergency [facility] Obstetrics Emergency Department [address] [place] [address] Vicki River MD LUQ abdominal pain (Primary Dx) Discharge Disposition: Home or Self Care 04/27/2025 Travel from Last 3 Months Social History Tobacco Use Types Packs/Day Years Used Date Smoking Tobacco: Never Tobacco Cessation:Counseling Given: Not Answered Alcohol Use Standard Drinks/Week Comments Not Currently 0 (1 standard drink = 0.6 oz pur e alcohol) Estimated Date of Delivery Comme nts Yes 10/11/2025 Date entered ashanti or to episode creation Sex and Gender Information Value Date Recorded Sex Assigned at Not on file 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 Gender Identity Not on file Sexual Orientation Not on file Last Filed Vital Signs Vital Sign Reading Time Taken Comments Blood Pressure 118/67 04/27/2025 9:44 AM CDT Pulse 85 04/27/2025 9:44 AM CDT Temperature 37.1 C (98.8 F) 04/27/2025 9:44 AM CDT Respiratory Rate 20 04/27/2025 9:44 AM CDT Oxygen Saturation 98% 04/27/2025 9:44 AM CDT Inhaled Oxygen Concentration - - Weight - - Height 165.1 cm (5' 5) 04/27/2025 9:44 AM CDT Body Mass Index - - Plan of Treatment Health Maintenance Due Date Last Done Comments HPV VACCINES (2 - 3-dose series) 02/02/2017 01/06/20 17 HPV/Cotest (21-29) 01/09/2020 DTAP/TDAP/TD VACCINES (7 - T d or Tdap) 06/21/2022 06/21/2012, 06/29/2004, 08/30/2000, Additional history exists INFLUENZA VACCINE (#1) 2025 08/31/2014 RSV VACCINE (60+ or ) (1 - Risk 1-dose series) 08/16/2025 CERVICAL CANCER SCREENING 01/28/2028 PAP SMEAR 01/28/2028 01/27/2025 HEPATITIS B VACCINES Completed 07/29/2000, 04/18/2000, 1999, Additional history exists Procedures Procedure Name Priority Date/Time Associated Diagnosis Comments POC URINALYSIS DIPSTICK AUTOMATED Stat 04/27/2025 10:27 AM CDT from Last 3 Months Results * (ABNORMAL) POC URINALYSIS DIPSTICK AUTOMATED (04/27/2025 10:27 AM CDT) COLOR UA Yellow Pale to Dark Yellow 04/27/2025 10:27 AM CDT [facility] UA Clear Clear 04/27/2025 10:27 AM CDT [facility] GLUCOSE UA Negative Negative 04/27/2025 10:27 AM CDT [facility] BILIRUBIN UA Negative Negative 04/27/2025 10:27 AM [facility] KETONES UA Negative Negative 04/27/2025 10:27 AM T [facility] BLOOD UA Negative Negative 04/27/2025 10:27 AM [facility] PH UA 7.0 5.0 - 8.0 04/27/2025 10:27 AM [facility] PROTEIN UA Negative Negative 04/27/2025 10:27 AM [facility] UROBILINOGEN UA 0.2 <2.0 mg/dL 10:27 AM [facility] NITRITE UA Negative Negative 04/27/2025 10:27 AM [facility] LEUKOCYTE ESTERASE UA Trace(A) Negative 04/27/2025 10:27 AM [facility] SPECIFIC GRAVITY UA POC 1.020 1.000 - 1.030 04/27/2025 10:27 AM [facility] Urine 04/27/2025 10:2 7 AM CDT 04/27/2025 10:29 AM CDT Narrative [facility] - 04/27/2025 10:27 AM CDT Recommend Urine Microcopic ([id number])and Urine Culture ([id number]) if indicated. Vicki River MD POINT OF CARE TE STING Final Result [facility] CLIA# [id number] [address] [place] [id number] from Last 3 Months Insurance [place] [employer] [place]
--- OUTSIDE RECORDS SUMMARY | 2025-05-21 07:57 | XMS_ITS | Referral Summary ---
Author Organization [facility] Address [address] [place] [address] Care Team Providers Care Customer Engagement Analyst Name Role Phone Tammi Menon DOREEN Primary [...] have care with Dr. Ortega Denson in [place], [place]. Assessment & Plan (07/04/2019 7:48 PM CDT): - no plans to [place] care [place] - gave Rx for doxylamine/pyridoxine for nausea - encouraged smoking cessation; recommended she d/w Dr. Addison Denson when she establishes care Abdominal pain in 07/04/2019 Overview (07/04/2019): 07/04/2019: presented to [facility], r/o for acute process. Transfer to [facility] for dating confirmation. 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 Gender Identity Not on file Sexual Orientation Not on file Last Filed Vital Signs Vital Sign Reading Time Taken Comments Blood Pressure 101/69 12/31/2024 5:25 PM STOCK LETTERER Pulse 77 12/31/2024 5:25 PM STOCK LETTERER Temperature 37.1 C (98.7 F) 12/31/2024 2:09 PM STOCK LETTERER Respiratory Rate 18 12/31/2024 5:25 PM STOCK LETTERER Oxygen Saturation 100% 12/31/2024 5:25 PM STOCK LETTERER Inhaled Oxygen Concentration - - Weight 72.7 kg (160 lb 4.4 oz) 12/31/2024 2:09 P M STOCK LETTERER Height 165.1 cm (5' 5) 12/31/2024 2:09 PM STOCK LETTERER Body Mass Index 26.67 12/31/2024 2:09 PM STOCK LETTERER Plan of Treatment Not on file Insurance [facility] Care Teams Customer Engagement Analyst Relationship Specialty Start Date End Date Tammi Menon APRN [address] Pediatric [place] [address] PCP - General Family Medicine 12/31/24
--- OUTSIDE RECORDS SUMMARY | 2025-05-21 07:57 | XMS_ITS | Clinical Summary ---
Author Organization [facility] Address [address] [place] [address] Care Team Providers Care Linux Kernel Engineer Name Role Phone Tammi Menon DOREEN [...] have care with Dr. Ortega Denson in [place], [place]. Assessment & Plan (07/04/2019 7:48 PM CDT): - [place] plans to [place] - gave Rx for doxylamine/pyridoxine for nausea - encouraged smoking cessation; recommended she d/w Dr. Addison Denson when she establishes care Abdominal pain in 07/04/2019 Overview (07/04/2019): 07/04/2019: presented to [facility], r/o for acute process. 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 Gender Identity Not on file Sexual [...] Comments Blood Pressure 101/69 12/31/2024 5:25 PM IT SPECIALIST Pulse 77 12/31/2024 5:25 PM IT SPECIALIST Temperature 37.1 C (98.7 F) 12/31/2024 2:09 PM IT SPECIALIST Respiratory Rate 18 12/31/2024 5:25 PM IT SPECIALIST Oxygen Saturation 100% 12/31/2024 5:25 PM IT SPECIALIST Inhaled Oxygen Concentration - - Weight 72.7 kg (160 lb 4.4 oz) 12/31/2024 2:09 P M IT SPECIALIST Height 165.1 cm (5' 5) 12/31/2024 2:09 PM IT SPECIALIST Body Mass Index 26.67 12/31/2024 2:09 PM IT SPECIALIST Plan of Treatment Health Maintenance Due Date Last Done Comments Cervical Cancer Screening 1999 Depression Screening 1999 Hepatitis C Screening 1999 Regular Well Visit/Exam 18-64 2017 HPV Vaccines (2 - 3-dose series) 02/02/2017 01/05/2017 DTaP/Tdap/Td Vaccine (7 - Td or Tdap) 06/21/2022 06/21/2012, 06/29/2004, 08/30/2000, Additional history exists Influenza Vaccine (#1) 2025 4, 08/18/2010, 08/25/2005 Hepatitis B Screening Completed 07/29/2000 , 04/18/2000, 1999, Additional history exists Varicella Vaccines Completed 08/31/2014, 07/29/2000 Pneumococcal vaccine <65 Aged Out No longer eligible based on patient's age to complete this topic Insurance [facility] Care Teams Linux Kernel Engineer Relationship Specialty Start Date End Date Tammi Menon LauraDOREEN [address] Pediatric Emerg. Dept. [place] [id number] PCP - General Family Medicine 12/31/24
--- OUTSIDE RECORDS SUMMARY | 2025-05-21 07:57 | XMS_ITS | Encounter Summary ---
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 [address] PCP - General Family Medicine 12/31/24 documented as of this encounter
--- OUTSIDE RECORDS SUMMARY | 2025-05-21 07:58 | XMS_ITS | Encounter Summary ---
Author Organization [facility] Address [address] [place] [id number] Care Team Providers Care It Sales Representative Name Role Phone Steph Hightower MD Unavailable Tanner Paige MD Primary Care Provider Janell Celaya APNP Unavailable Reason for Visit * Reason Comments (Headache) Encounter Details Date Type Department Care Team (Late st Contact Info) Description 05/21/2025 5:35 AM CDT - 05/21/2025 6:54 AM T Hospital Encounter [facility] [address] [place] [address] Nate Alvarez MD [address] [place] [address] (Headache) Discharge Disposition: Home or Self Care (Routine Discharge) Social History Tobacco Use Types Packs/Day Years Used Date Smoking Tobacco: Former Cigarettes Passive Smoke Exposure: Current Smokeless Tobacco: Never Alcohol Use Standard Drinks/Week [...] Recorded Patient Health Questionnaire-2 Score 0 05/13/2024 [facility] [place] of Occupat ional Health - Occupational Stress [...] Concentration - - Weight - - Height - - Body Mass Index - - documented in this encounter Functional Status * [...] of Assessment Author Status No Risk Indicated 05/21/2025 5:51 AM Real Jones RN Active * [place] Suicide Severity Rating Scale (Screener/Recent Self-Report) Question Answer Date of Assessment Author Status 1. Wish to be (Past 1 Month) No 05/21/2025 5:51 AM Anushka Jones RN Active 2. Non-Specific Active Suicidal Thoughts (Past 1 Month) No 05/21/2025 5:51 AM Anushka Jones RN Active 6. Suicidal Behavior (Lifetime) No 05/21/2025 5:51 AM Anushka Jones RN Active documented as of this encounter Mental Status * Because of a physical, mental, or emotional condition, do you have serious difficulty concentrating, remembering, or making decisions? Answer Entry Date Author Status No 05/13/2024 1:23 AM Mariama Ferris RN Active documented in this encounter Medications at Time of Discharge albuterol sulfate HFA 108 (90 Base) MCG/ACT inhaler Inhale 2 puffs into the lungs 4 (four) times daily. 01/07/2025 ondansetron (ZOFRAN-ODT) 4 MG disintegrating tablet Take 1 tablet (4 mg total) by mouth every 8 (eight) hours as needed for Nausea. 20 tablet 01/24/2025 vitamin, low iron, 27-0.8 mg tablet Take 1 tablet by mouth daily. SYMBICORT 80-4.5 MCG/ACT inhaler 2 puffs 2 (two) times daily. 01/07/2025 documented as of this encounter Nursing Notes * Anushka Murphy RN - 05/21/2025 6:54 AM CDT Discharge instructions and education given. Educated on signs and symptoms to watch for and when toreturn. Educated on not taking over 4000mg of tylenol in a 24hour period. Pt verbalizes understanding and denies further questions. Pt reports she is going to [facility] to be assessed. * Anushka Murphy RN - 05/21/2025 6:23 AM CDT PT refuses to take tramadol at this time. Reports she doesn't feel comfortable taking the medication without checking with her primary doctor first. documented in this encounter Plan of Treatment Scheduled Orders Name Type Priority Associated Diagnoses Order Schedule nonstress test OB Routine Headache Once for 1 Occurrences starting 05/21/2025 until 05/21/2025 Oxygen Therapy Non-rebreather Mask Oxygen; Other - specify in comments Respiratory Care Routine Headache As Needed until discontinued starting 05/21/2025 documented as of this encounter Procedures Procedure Name Priority Date/Time Associated Diagnosis Comments URINALYSIS Routine 05/21/2025 5:40 AM CDT Headache documented in this encounter Results * (ABNORMAL) URINALYSIS (05/21/2025 5:40 AM CDT) COLOR (U) YELLOW 05/21/2025 5:58 AM CDT [facility] TRANSPARENCY SLIGHTLY CLOUDY 05/21/2025 5:58 AM CDT [facility] SPECIFIC GRAVITY (U) 1.030(H) 1.000 - 1.025 05/21/2025 5:58 AM CDT [facility] Comment:EQUAL TO OR GREATER THAN U PH 5.5 5.0 - 8.0 05/21/2025 5:58 AM CDT [facility] LEUKOCYTES (U) TRACE(A) NEGATIVE 05/21/2025 5:58 AM CDT [facility] NITRITES NEGATIVE NEGATIVE 05/21/2025 5:58 AM CDT [facility] PROTEIN RANDOM (U) NEGATIVE NEGATIVE 05/21/2025 5:58 AM CDT [facility] GLUCOSE (U) NEGATIVE NEGATIVE 05/21/2025 5:58 AM CDT [facility] KETONES MG/DL (U) NEGATIVE NEGATIVE 05/21/2025 5:58 AM CDT [facility] UROBILINOGEN 0.2 <1.0 EU/DL 05/21/2025 5:58 AM CDT [facility] BILIRUBIN (U) NEGATIVE NEGATIVE 05/21/2025 5:58 AM CDT [facility] BLOOD (U) NEGATIVE NEGATIVE 05/21/2025 5:58 AM CDT [facility] WBC/HPF 0-5 0 - 5 /HPF 05/21/2025 5:58 AM CDT [facility] RBC/HPF 0-5 0 - 5 /HPF 05/21/2025 5:58 AM CDT [facility] EPI/LPF RARE /LPF 05/21/2025 5:58 AM CDT [facility] URINE SPECIMEN OBTAINED BY CLEAN CATCH PROCEDURE / Unknown 05/21/2025 5:40 AM CDT us Nate Alvarez MD URINE ORDERABLES Final Result [facility] [email or web address] [place], [place] [address] [phone] documented in this encounter Visit Diagnoses Diagnosis Headache- Primary documented in this encounter Active and Recently Administered Medications Times are shown in CDT. Scheduled Medication Order 05/19/2025 05/20/2025 05/21/2025 traMADol (ULTRAM) tablet 100 mg 100 mg, Oral, Once, 1 dose, On Sat05/21/25 at 0645 0623 (Not Given - Pr ovider: Anushka Murphy RN - Reason: Patient/family declined - Comment: Pt refused to t\carolina the medication) documented in this encounter Care Teams It Sales Representative Relationship Specialty Start Date End Date Tanner Paige MD [address] [place] [id number] PCP - General FAMILY PRACTICE 07/01/24 Steph Hightower MD [address] [place] [address] Consulting Physician CARDIOVASCULAR DISEASE 11/07/22 Janell Celaya APNP [address] [place] [id number] NURSE PRACTITIONER 12/01/24 documented as of this encounter
--- OUTSIDE RECORDS SUMMARY | 2025-05-21 07:58 | XMS_ITS | Data Portability ---
Author Organization [facility] Address [address] [place] [address] Care Team Providers Care Filler Block Inserter Remover Name Role Phone CARLOS ESTRADA Primary Care Provider [phone] Assessment Encounter Date Assessment Date Assessment LastModified by Organization Details LastModified Time 03/31/2025 03/31/2025 Patient is _16__weeks . Discussed plan. [email or web address] Not available 03/31/2025 11:14:53 04/28/2025 04/28/2025 Patient is _20__weeks . Discussed plan. [email or web address] Not available 04/28/2025 15:21:56 Plan of Treatment Reminders Order Date Submit Date Provider Last Modified By Organization Details Last Modified Time Details Appointments OB PROBLEM 2024 10:45A M Annette BRADLEY MD Not available Not available Not available U/S OB GROWTH 2024 01:00P M ULTRASOUND Not available Not available Not available OB ROUTINE 2024 01:30P M Anju Mcnamara CNM Not available Not available Not available Lab urinaly sis, dipstic k 2024 025 [email or web address], [place], [address], 04/22/2025 10:03:14 urinaly sis, dipstic k 2024 025 [address], [place], [address], 03/31/2025 09:25:47 culture , urine 2024 025 [facility] (Lab), [address], [place], [address], 04/01/2025 23:59:19 Referral None recorde d. Procedures None recorde d. Surgeries None recorde d. Imaging US, obstetr ic, 2nd or 3rd trimest er 2024 025 [address], [address], [place], [address], 04/30/2025 22:15:55 US, obstetr ic, limited 2024 025 [address], [address], [place], [address], 04/21/2025 09:56:35 Medication Orders Zomig 5 mg tablet [address] [facility] [address] , [place], [address], 04/22/2025 22:06:27 ondanse richelle HCl 4 mg tablet 2024 025 [facility] [address] , [place], [address], 03/31/2025 11:15:35 metroni dazole 500 mg tablet 2024 025 [facility] [address] , [place], [address], 04/16/2025 09:54:32 Difluca n 150 mg tablet 2024 025 [facility] [address] , [place], [address], 04/16/2025 09:54:28 Patient TargetsNo targets recorded. Patient InstructionsNo instructions recorded. Reason for Referral None Reported. Results Created Date Observation Date Name Description Value Unit Range Abnormal Flag Note LastModifiedBy Organization Detail LastModifiedTime 03/06/2003/06/2025 [UNIT Y] ANEUP LOIDY NIPT fraction 5.7% normal Not Available [facility] [address] [facility], [place], [address], 03/06/2025 03:58:26 03/06/20 25 03/06/2025 [UNIT Y] ANEUP LOIDY NIPT sex chromosome aneuploidy NOT DETECT ED normal Not Available [facility] [address] [facility], [place], [address], 03/06/2025 03:58:26 03/06/20 25 03/06/2025 [UNIT Y] ANEUP LOIDY NIPT monosomy X LOW RISK <1 in 10,000 normal Not Available [address] [address] [place], [address], 03/06/2025 03:58:26 03/06/20 25 03/06/2025 [UNIT Y] ANEUP LOIDY NIPT trisomy 13 LOW RISK <1 in 10,000 normal Not Available [facility] [address] [facility], [place], [address], 03/06/2025 03:58:26 03/06/20 25 03/06/2025 [UNIT Y] ANEUP LOIDY NIPT trisomy 18 LOW RISK <1 in 10,000 normal Not Available [address] [address] [place], [address], 03/06/2025 03:58:26 03/06/20 25 03/06/2025 [UNIT Y] ANEUP LOIDY NIPT trisomy 21 LOW RISK <1 in 10,000 normal Not Available [address] [address] [place], [address], 03/06/2025 03:58:26 03/06/20 25 03/06/2025 [UNIT Y] ANEUP LOIDY NIPT sex FEMALE normal Not Available [facility] [address], [place], [address], 03/06/2025 03:58:26 03/06/20 25 03/06/2025 [UNIT Y] ANEUP LOIDY NIPT gestation SINGLE TON normal Not Available [facility] [address], [place], [address], 03/06/2025 03:58:26 03/06/20 25 03/06/2025 [UNIT Y] ANEUP LOIDY NIPT for detailed report, see pdf See PDF normal Not Available [facility] [address], [place], [address], 03/06/2025 03:58:26 03/02/2003/02/2025 CULTU RE: URINE result report SEE RESULT S BELOW Test: Cultu re: Urine Speci men Sourc e: Urine - Clean Catch Speci men Type: Urine Speci men Date: 1455 Resul t Date: 2138 Resul t Statu s: Final resul t Abnor mal: No Resul ting Lab: [facility] [address] [facility] [address] Tel: CULTU RE ----- ----- ----- --- No growt h in 1 day (dete ction level of 10,00 0 colon ies / ml.) Not Available [facility] (Lab) [address], [place], [address], 03/03/2025 22:42:27 03/12/2003/12/2025 CULTU RE: URINE result report SEE RESULT S BELOW Test: Cultu re: Urine Speci men Sourc e: Urine - Clean Catch Speci men Type: Urine Speci men Date: 2024 1600 Resul t Date: 2024 0610 Resul t Statu s: Final resul t Abnor mal: No Resul ting Lab: [facility] [address] [facility] [address] Tel: CULTU RE ----- ----- ----- --- No growt h in 1 day (dete ction level of 10,00 0 colon ies / ml.) Not Available [facility] (Lab) [address], [place], [address], 03/14/2025 07:15:03 03/12/2003/12/2025 urina lysis , dipst ick Leukocytes ++ Not Available [facility] [address], [place], [address], 03/12/2025 16:45:06 03/12/20 25 03/12/2025 urina lysis , dipst ick Protein + Not Available [facility] [address], [place], [address], 03/12/2025 16:45:06 03/12/20 25 03/12/2025 urina lysis , dipst ick pH 5 Not Available [facility] [address], [place], [address], 03/12/2025 16:45:06 03/12/20 25 03/12/2025 urina lysis , dipst ick Blood trace Not Available [facility] [address], [place], [address], 03/12/2025 16:45:06 03/12/20 25 03/12/2025 urina lysis , dipst ick Specific [place] 1.015 Not Available [facility] [address], [place], [address], 03/12/2025 16:45:06 03/12/20 25 03/12/2025 urina lysis , dipst ick Ketone +++ Not Available [facility] [address], [place], [address], 03/12/2025 16:45:06 03/31/20 25 03/31/2025 TSH, REFLE X FREE T4 TSH 0.42 uIU/m L 0.30-5 .33 Not Available [facility] (Lab) [address], [place], [address], 04/01/2025 03:05:12 03/31/20 25 03/31/2025 CULTU RE: URINE result report SEE RESULT S BELOW Test: Cultu re: Urine Speci men Sourc e: Urine Voide d Speci men Type: Urine Speci men Date: 1710 Resul t Date: 2256 Resul t Statu s: Final resul t Abnor mal: No Resul ting Lab: [facility] [address] [facility] [address] Tel: CULTU RE ----- ----- ----- --- Cultu re resul t (>=3 organ isms prese nt) indic ates possi ble conta minat ion. Repea t cultu re if sympt oms indic ate. Not Available [facility] (Lab) [address] , [place], [address], 04/01/2025 23:59:19 03/31/20 25 03/31/2025 urina lysis , dipst ick Leukocytes +1 Not Available [facility] [address], [place], [address], 03/31/2025 09:23:13 03/31/20 25 03/31/2025 urina lysis , dipst ick Nitrite normal Not Available [facility] [address], [place], [address], 03/31/2025 09:23:13 03/31/20 25 03/31/2025 urina lysis , dipst ick Urobilinogen normal Not Available [address], [place], [address], 03/31/2025 09:23:13 03/31/20 25 03/31/2025 urina lysis , dipst ick Protein trace Not Available [facility] [address], [place], [address], 03/31/2025 09:23:13 03/31/20 25 03/31/2025 urina lysis , dipst ick pH 5 Not Available [facility] [address], [place], [address], 03/31/2025 09:23:13 03/31/20 25 03/31/2025 urina lysis , dipst ick Specific [place] 1.020 Not Available [facility] [address], [place], [address], 03/31/2025 09:23:13 03/31/20 25 03/31/2025 urina lysis , dipst ick Ketone normal Not Available [facility] [address], [place], [address], 03/31/2025 09:23:13 03/31/20 25 03/31/2025 urina lysis , dipst ick Bilirubin normal Not Available [facility] [address], [place], [address], 03/31/2025 09:23:13 03/31/20 25 03/31/2025 urina lysis , dipst ick Glucose normal Not Available [facility] [address], [place], [address], 03/31/2025 09:23:13 03/31/20 25 03/31/2025 urina lysis , dipst ick Appearance normal Not Available [address], [place], [address], 03/31/2025 09:23:13 03/31/20 25 03/31/2025 urina lysis , dipst ick Color normal Not Available [address], [place], [address], 03/31/2025 09:23:13 04/01/20 25 04/01/2025 [facility], DENIS bacterial vaginosis (bv), tma Negati ve negati ve Not Available [facility] (Lab) [address] [place], [address], 04/02/2025 14:08:45 04/01/20 25 04/01/2025 [facility] SWAB PLUS, DENIS mekhi species, tma Negati ve negati ve Not Available [facility] (Lab) [address] [place], [address], 04/02/2025 14:08:45 04/01/20 25 04/01/2025 [facility], DENIS mekhi glabrata, tma Negati ve negati ve Not Available [facility] (Lab) [address] [place], [address], 04/02/2025 14:08:45 04/01/20 25 04/01/2025 [facility] SW[facility], DENIS trichomonas vaginalis, tma Negati ve negati ve Not Available [facility] (Lab) [address] [place], [address], 04/02/2025 14:08:45 04/01/20 25 04/01/2025 [facility] SW[facility], DENIS chlamydia trachomatis, PCR Negati ve negati ve Not Available [facility] (Lab) [address] [place], [address], 04/02/2025 14:08:45 04/01/20 25 04/01/2025 [facility], DENIS neisseria gonorrhoeae, PCR [...] ded in this panel . Not Available [facility] (Lab) [address], [place], [address], 04/02/2025 14:08:45 04/22/2004/22/2025 CULTU RE: URINE result report SEE RESULT S BELOW Test: Cultu re: Urine Speci men Sourc e: Urine Voide d Speci men Type: Urine Speci men Date: 2024 1314 Resul t Date: 2024 0322 Resul t Statu s: Final resul t Abnor mal: No Resul ting Lab: [facility] [address] [facility] [address] Tel: CULTU RE ----- ----- ----- --- No growt h in 1 day (dete ction level of 10,00 0 colon ies / ml.) Not Available [facility] (Lab) [address], [place], [address], 04/24/2025 04:28:01 04/22/2004/22/2025 urina lysis , dipst ick Leukocytes + Not Available [address], [place], [address], 04/22/2025 10:01:51 04/22/20 25 04/22/2025 urina lysis , dipst ick Protein + Not Available [facility] [address], [place], [address], 04/22/2025 10:01:51 04/22/20 25 04/22/2025 urina lysis , dipst ick pH 8 Not Available [facility] [address], [place], [address], 04/22/2025 10:01:51 04/22/20 25 04/22/2025 urina lysis , dipst ick Blood + Not Available [facility] [address], [place], [address], 04/22/2025 10:01:51 04/22/20 25 04/22/2025 urina lysis , dipst ick Specific [place] 1.010 Not Available [facility] [address], [place], [address], 04/22/2025 10:01:51 04/22/20 25 04/22/2025 urina lysis , dipst ick Ketone + Not Available [facility] [address], [place], [address], 04/22/2025 10:01:51 03/02/20 25 03/02/2025 US, obste tric, nucha l trans lucen cy No observ ation record ed. [email or web address] [facility] [address], [place], [address], 03/02/2025 13:35:30 03/02/20 25 03/02/2025 US, obste tric, nucha l trans lucen cy No observ ation record ed. [email or web address] [address], [place], [address], 03/03/2025 14:08:39 03/08/20 25 03/08/2025 US, obste tric, 1st trime ster No observ ation record ed. [email or web address] [facility] [address], [place], [address], 03/08/2025 12:22:22 03/08/20 25 03/08/2025 US, obste tric, 1st trime ster No observ ation record ed. [email or web address] [address], [place], [address], 03/10/2025 15:03:13 04/01/20 25 03/24/2025 qamar r monit or No observ ation record ed. [address], [address], 04/08/2025 12:36:45 04/01/20 25 03/22/2025 qamar r monit or No observ ation record ed. [address] (Pulmonary) [address] [place] [address] [address] [facility], [place], [address], 04/06/2025 08:59:34 04/20/20 25 04/20/2025 US, obste tric, limit ed No observ ation record ed. [email or web address] [facility] [address], [place], [address], 04/20/2025 17:39:30 04/20/20 25 04/20/2025 US, obste tric, follo w-up No observ ation record ed. [email or web address] [address], [place], [address], 04/23/2025 08:32:54 04/28/20 25 04/28/2025 US, obste tric, 2nd or 3rd trime ster No observ ation record ed. [email or web address] [facility] [address], [place], [address], 04/28/2025 17:48:42 04/28/2004/28/2025 US, obste tric, 2nd or 3rd trime ster No observ ation record ed. [email or web address] [address], [place], [address], 05/04/2025 22:16:11 05/07/20 25 05/07/2025 non-s tress test No observ ation record ed. [address], [place], [address], 05/14/2025 10:25:29 Result Notes None recorded. Problems Name Problem SNOMED Code Status Onset Date Resolution Date Notes Provider Name and Address Organization Details Recorded Time Hypereme sis 988694619 Completed phenerga n now prn Asia ramos [facility] 2 16:43:51 Anxiety in pregnanc y 3098305996 9109 Completed will continue to monitor Asia ramos [facility] 2 16:43:51 Past pregnanc y history of gestatio nal diabetes mellitus 364127698 Completed Early 1 hr GTT @ 20wks 11/03 APPT Asia ramos [facility] 2 16:43:51 Spinal muscular atrophy 5618944 Completed Carrier - Not in contact with FOB. Asia ramos [facility] 2 16:43:51 Anxiety 05680643 Completed prozac Karina ramos [facility] 4 11:00:46 Nausea 370632153 Completed d/c zofran pump 11/08 per pt request Karina ramos [facility] 4 11:00:46 Postpart um hemorrha ge [id number] Completed 2017 with d&c Karian ramos [facility] 4 11:00:46 Normal pregnanc y in multigra jessy 0635518409 36365 Completed 201907/05/2021 Encounte r for supervis ion of other normal pregnanc y, 3rd trimeste r;Record ed Elsewher e: No Locat ion: [facility] S ource: EHR Buttoner yvrose: N Natalyati ce ID: 0001 Gigi lable Time: 10:45:00 AM Karina ramos [facility] 1 10:15:27 Gestatio n period, 37 weeks 40092574 Completed 201907/05/2021 37 weeks gestatio n of pregnanc y;Record ed Elsewher e: No Locat ion: [facility] S ource: EHR Buttoner yvrose: N Natalyati ce ID: 0001 Gigi lable Time: 09:00:00 AM Karina ramos [facility] [address] 10:15:[address] Concept Completed 201907/05/2021 Matern care for abnlt fetl hrt rate or rhym, 3rd tri, unsp;Rec orded Elsewher e: No Locat ion: [facility] S ource: EHR Buttoner yvrose: N Natalyati ce ID: 0001 Gigi lable Time: 08:45:00 AM Karina ramos [facility] 1 10:15:29 Gestatio nal diabetes mellitus 04996506 Completed 201907/05/2021 Gestatio nal diabetes mellitus in pregnanc y, diet controll ed;Recor ded Elsewher e: No Locat ion: [facility] S ource: EHR Buttoner yvrose: N Practi ce ID: 0001 Gigi lable Time: 11:45:00 AM Karina ramos [facility] 1 10:15:25 Gestatio n period, 38 weeks 95203598 Completed 201907/05/2021 38 weeks gestatio n of pregnanc y;Record ed Elsewher e: No Locat ion: [facility] an[facility] S ource: EHR Buttoner yvrose: N Practi ce ID: 0001 Gigi lable Time: 11:30:00 AM Karina Burroughs null, [facility] 10:15:13 Amenorrh ea 61995428 Completed 202007/10/2021 Tammi Karen null, [facility] 13:08:35 Pregnanc y 46814852 Completed 202003/29/2022 Karina Burroughs null, [facility] 4 11:00:49 Pregnanc y 82063440 Completed 202304/22/2024 Karina Burroughs null, [facility] 4 11:00:49 Headache 64745168 Active 2023 Karina Burroughs null, [facility] 5 16:19:28 Pregnanc y 42157468 Active 2023 Karina Burroughs null, [facility] 5 16:19:28 Uncompli cated moderate persiste nt asthma 436995161 Active 2024 albutero l prn Shawn Bradley MD [address], [place], [address], [facility] 5 13:08:36 Anxiety 19680304 Active 2024 sertrali ne started 03/02/25 changed to prozac 10 on Shawn Bradley MD [address], [place], [address], [facility] 5 17:05:48 Nausea and vomiting 49668371 Active 2024 Shawn Bradley MD [address], [place], [address], [facility] 5 13:20:27 Placenta circumva llata 5171093 Active 2024 Wendy Obrien null, [facility] 5 11:28:16 Frequent headache 346324530 Active 2024 Neurolog y referral faxed 05/[address] [facility], [facility] 5 16:15:15 Abnormal placenta affectin g manageme nt of mother 39089180 Active 2024 [facility]CI serial growth Ryann Castro [facility], [facility] 5 10:46:25 Notes:[facility], and home health already caring for pt. Vladimir RDZ at [phone] Problem Notes None recorded. Procedures Surgical History Date Name Laterality Status Provider Name and Address Organization Details Recorded Time 025 Date of Last Pap Smear completed Karina Burroughs [facility] 01/28/2025 11:19:42 024 Nexplanon Removal completed Shawn Bradley MD [address], [place], [address], [facility] 08/05/2024 15:09:58 024 Control Implant Insertion completed Anju Mcnamara CNM [address], [place], [address], [facility] 05/08/2024 17:59:34 024 cholecystectomy completed Karina Burroughs [facility] 03/31/2025 09:18:57 018 Dilation and Curettage completed Karina Burroughs [facility] 07/05/2021 10:17:50 Imaging Results None recorded. Procedure Notes None recorded. Medical Equipment None Reported. Allergies Allergen ID Allergen Name Allergen Category Reaction Reaction Severity Criticality Documentation Date Start Date Code Code System Note Provider Name and Address Organization Details Recorded Time 53570 terbutali ne medicatio n anaphylax is Not available Not available 01/27/20252021 15581 RxNorm Karina Burroughs [facility], [...] completed Not Available Not Available Not Available Colace 100 mg capsule Take 1 capsule twice a day by oral route. 2024 active Not Available Not Available Not Avai lable doxycycli ne hyclate 100 mg capsule TAKE 1 CAPSULE BY MOUTH TWICE DAILY FOR 5 DAYS 01/14 completed Not Available Not Available Not Available ketoconaz ole 2 % shampoo APPLY TOPICALL Y TO SCALP THREE TIMES A WEEK FOR 3 WEEKS 01/14 completed Not Available Not Available Not Available clindamyc in HCl 300 mg capsule TAKE 1 CAPSULE BY MOUTH BY MOUTH TWICE DAILY 04/28 completed Not Available Not Available Not Available [...] NOW AND REPEAT DOSE IN 48 HOURS 04/16 completed Not Available Not Available Not [...] Not Available Not Available No t Available famotidin e 40 mg tablet TAKE 1 TABLET BY MOUTH TWICE DAILY 04/28 completed Not Available Not Available Not Available [...] MOUTH EVERY 12 HOURS FOR 7 DAYS 04/16 completed Not Available Not Available Not Available sulfameth oxazole 800 mg-trimet hoprim 160 mg tablet TAKE 1 TABLET BY MOUTH TWICE DAILY FOR 7 DAYS 01/14 completed Not Available Not Available Not Available zolmitrip giles 5 mg tablet active Not Available Not Available Not Available ondansetr on 8 mg disintegr ating tablet DISSOLVE ONE TABLET BY MOUTH 1 HOUR PRIOR TO TAKING METRONID AZOLE DIRECTED 07/05 completed Not Available Not Available Not Available dextrose 5 % and lactated ringers intraveno us solution 09/14 completed Not Available Not Available Not Available Macrobid 100 mg capsule Take 1 capsule every 12 hours by oral route for 7 days. 04/22 completed Not Available Not Available Not Available [...] completed Not Available Not Available Not Available ferrous sulfate 325 mg (65 mg iron) tablet Take 1 tablet every day by oral route. 2024 active Not Available Not Available Not Avai lable triamcino lone acetonide 0.1 % topical ointment [...] TAKE 1 CAPSULE BY MOUTH ONCE DAILY 04/28 completed Not Available Not Available Not Available sertralin e 25 mg tablet TAKE 1 TABLET BY MOUTH EVERY DAY DIRECTED 2024 active Not Available Not Available Not Avai lable buspirone 7.5 mg tablet Take 1 tablet [...] TABLET IN MOUTH EVERY 6 HOURS NEEDED 04/28 completed Not Available Not Available Not Available cefdinir 300 mg capsule TAKE 1 CAPSULE BY MOUTH EVERY 12 HOURS FOR 10 DAYS 07/05 completed Not Available Not Available Not Available fluticaso ne propionat e 50 mcg/actua tion nasal spray,ian pension USE 1 SPRAY(S) IN EACH NOSTRIL TWICE DAILY NEEDED 01/14 completed Not Available Not Available Not Available sertralin e 50 mg tablet TAKE 1 TABLET BY MOUTH ONCE DAILY 04/16 completed Not Available Not Available Not [...] Elsewher e: Yes Loca tion: Jaelyn castillo [facility] M odify By: [email or web address] Encounte r DateTime [...] n (supplie d by office) insert lot [id number] Exp 01/2026 Not Available Not Available Not Available 28 mg iron-800 mcg tablet 07/05 completed Otoniel castillo: Yes Loca tion: Jaelyn castillo [facility] M odify By: [email or web address] Katbinta r DateTime : 01/14/20 10:45:00 AM Not Available Not Available Not Available lidocaine 5 % topical ointment APPLY OINTMENT EXTERNAL LY TO RIBS THREE TIMES DAILY NEEDED 01/14 completed Not Available Not Available Not Available BOLT THREADER-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 2024 active Not Available Not Available Not Avai lable Fioricet 50 mg-300 mg-40 mg capsule Take 1 capsule every 4 hours by oral route. 04/28 completed Not Available Not Available Not Available [...] Body mass index (BMI) Body weight Systolic And Diastolic Provider Name and Address Organization Details Last Updated DateTime 03/31/2025 162.56 cm 27.8 kg/m2 09618.96 g 123/78 mm[Hg] Karina Burroughs [facility] 03/31/2025 09:16:47 Date Recorded Body weight Systolic And Diastolic Provider Name and Address Organization Details Last Updated DateTime 04/22/2025 30146.06142 g 114/73 mm[Hg] Melyssa Gal [facility] 04/22/2025 10:00:25 Date Recorded Body weight Systolic And Diastolic Provider Name and Address Organization Details Last Updated DateTime 04/28/2025 65252.47192 g 110/72 mm[Hg] Melyssa [facility] 04/28/2025 15:05:40 Social History Question Answer Notes LastModified by Organizat ion Details LastModified Time Tobacco Smoking Status Former Smoker Karina Burroughs [facility] 07/05/2021 09:06:21 If You Are , What Was Your Level Of Alcohol Consumption Prior To ? Occasional [email or web address] Information not available 03/31/2025 Are You Blind Or Do You Have Difficulty Seeing? No Information not available 07/05/2021 What Is Your Level Of Caffeine Consumption? Heavy [email or web address] Information not available 07/05/2021 In The 14 Days Before Symptom Onset, Have You Had Close Contact With A Laboratory-confir med COVID-19 While That Case Was Ill? No [email or web address] Information not available 07/05/2021 In The 14 Days Before Symptom Onset, Have You Had Close Contact With A Person Who Is Under Investigation For COVID-19 While That Person Was Ill? No [email or web address] Information not available 07/05/2021 Have You Been To An Area Known To Be High Risk For COVID-19? No [email or web address] Information not available 07/05/2021 Are You Deaf Or Do You Have Serious Difficulty Hearing? No [email or web address] Information not available 07/05/2021 What Type Of Diet Are You Following? REGULAR Information not available 07/05/2021 Which Illicit Or Recreational Drugs Have You Used? Marijuana [email or web address] Information not available 07/05/2021 Have You Ever Been Counseled For Unhealthy Alcohol Use? No [email or web address] Information not available 07/05/2021 Do You Use Your Seat Belt Or Car Seat Routinely? Yes [email or web address] Information not available 07/05/2021 Do You Have Smoke And Carbon Monoxide Detectors In Your Home? Yes [email or web address] Information not available 07/05/2021 Do You Use Sunscreen Routinely? Yes [email or web address] Information not available 07/05/2021 Has Tobacco Cessation Counseling Been Provided? No [email or web address] Information not available 07/05/2021 Have You Used IV Drugs? No [email or web address] Information not available 07/05/2021 Do You Have Difficulty Walking Or Climbing Stairs? No [email or web address] Information not available 12/06/2021 Sex: Unknown Functional Status Question Answer Note LastModified by Organizat ion Details LastModified Time Do you use any illicit or recreational drugs? Yes [email or web address] Information not available 07/05/2021 Do you or have you ever used any other forms of tobacco or nicotine? Yes [email or web address] Information not available 07/05/2021 What is your level of alcohol consumption? None [email or web address] Information not available 03/31/2025 Do you or have you ever used smokeless tobacco? Never used smokeless tobacco [email or web address] Information not available 07/05/2021 Are you able to walk? YESWOREST [email or web address] Information not available 07/05/2021 Are you able to care for yourself independently? Yes [email or web address] Information not available 12/06/2021 Do you have difficulty dressing, bathing, grooming, or toileting? No [email or web address] Information not available 12/06/2021 Do you or have you ever used e-cigarettes or vape? Current user of electronic cigarettes [email or web address] Information not available 07/05/2021 What is your exercise level? Occasional [email or web address] Information not available 07/05/2021 Mental Status Question Answer Note LastModified by Organization D etails LastModified Time Do you feel stressed (tense, restless, nervous, or anxious, or unable to sleep at night)? [id number] [email or web address] Information not available 07/05/2021 Family History Relationship Description Onset Age of this Age Resolved Age Notes LastModified by Organization Details LastModified Time Father No current problems or disability [email or web address] Not available 05/2021 09:06:31 Mother No current problems or disability [email or web address] Not available 05/2021 09:06:31 Medical History Condition Response Other N Blood Transfusion N Dermatologic Disorders N Gestational Diabetes Y Anxiety Disorder Y Autoimmune disease N Arthritis N Polyps N Infertility N Acid Reflux (GERD) N Cancer N Varicosities N Stroke N Neurologic/Epilepsy N Fibromyalgia N Headaches Y Kidney Disease N Heart Problems N Kidney [...] SNOMED-CT Code Diagnosis ICD10 Code Diagnosis Note [id number] Anju Mcnamara CNM [facility] [address] [address] 07/05/2021 09:58:05 07/05/2021 11:16:35 Pityriasis versicolor 15312058 B36.0 also wash with selsum blue shampoo Vaginitis 56293434 N76.0 Nausea 016845574 R11.0 Contracept ion care management 377710129 Z30.9 [id number] Betsey Joya [facility] [address],[facility] [place] [address] 08/02/2021 10:30:44 08/04/2021 10:07:43 Severe hyperemesis gravidarum 943153551 O21.1 Pt has not held anything down for more than 24 hours. Sent to ER for hydration and evaluation . We have discussed dietary precaution s. Recommend very small frequent meals. Avoid greasy, spicy or trigger foods. I do believe she may benefit from home health for fluids and IV antiemetic s. [id number] [facility] [address],[place] [address] 08/08/2021 10:22:11 08/08/2021 13:42:05 Depressive disorder 26916393 F32.A in an emergency merc info given and kettler reminder, if increased thoughts or plan to hospital for immediate care, pt agrees, continue counseling , will try lexapro once can keep down fluids, se reviewed Gynecologi c examination 74512220 Z01.419 Z11.3 Z11.8 Amenorrhea 38493426 N91. 2 plan NOB and first look Nausea and vomiting 1693 1999 R11.2 unable to leave urine, unable at this time to go to LD, encouraged to go to LD for hydration, working on home health services, [id number] Shawn Bradley MD [facility] [address],[facility] [place] [address] 08/08/2021 10:21:08 08/08/2021 10:53:33 Routine care 137559376 Z34.91 Z3A.08 [id number] Anju Mcnamara [facility] [address],[place] [address] 09/13/2021 14:51:52 09/14/2021 13:44:23 test positive 557724884 Z32.01 Routine an tenatal care 193617792 Z34.91 [id number] Shawn Bradley MD [facility] [address],[place] [address] 09/13/2021 15:35:32 09/13/2021 16:26:27 screening 237693109 Z36.82 [id number] Betsey Joya [facility] [address],[place] [address] 10/09/2021 12:26:15 10/09/2021 17:39:00 Urinary symptoms 214606913 R39.9 Fatigue 32679864 R53.83 Venereal d isease screening 482892803 Z11.3 [id number] Anju Mcnamara [facility] [address],[place] [address] 10/16/2021 11:57:23 10/16/2021 12:48:11 Routine care 257954639 Z34.91 [id number] Anju Mcnamara [facility] [address],[place] [address] 11/03/2021 11:32:21 11/03/2021 13:52:13 Routine care 080550973 Z34.91 [id number] Shawn Bradley MD [facility] [address],[place] [address] 11/03/2021 11:31:37 11/03/2021 12:34:34 screening for malformation 794123173 Z36.3 [id number] Anju Mcnamara [facility] [address],[place] [address] 12/06/2021 14:46:58 12/06/2021 16:07:59 Routine care 060442417 Z34.91 Iron defic iency anemia 83572688 D50.9 Anxiety 16461346 F41.9 [id number] Shawn Bradley MD [facility] [address],[place] [address] 12/06/2021 14:46:10 12/06/2021 15:18:30 condition affecting obstetrical care of mother 679748926 O35.8XX0 Z3A.25 [id number] Anju Mcnamara [facility] [address],[place] [address] 12/22/2021 11:04:34 12/22/2021 11:32:13 Routine care 405474894 Z34.91 [id number] Shawn Bradley MD [facility] [address],[place] [address] 01/03/2022 14:21:04 01/03/2022 15:48:26 Uterine size for dates discrepancy 823517909 O26.843 Z3A.29 [id number] Anju Mcnamara [facility] [address],[place] [address] 01/03/2022 14:21:33 01/03/2022 15:13:41 Routine care 615774744 Z34.91 [id number] Anju Mcnamara [facility] [address],[place] [address] 01/17/2022 16:53:11 01/17/2022 17:24:14 Routine care 087533902 Z34.91 Persistent cough 5734469 02 R05.3 [id number] Betsey Joya [facility] [address],[place] [address] 02/06/2022 09:22:49 02/06/2022 09:55:25 Routine care 445632381 Z34.93 [id number] Shawn Bradley MD [facility] [address],[place] [address] 02/13/2022 14:43:16 02/13/2022 15:26:49 Poor growth affecting management 208544532 O36.5930 Z3A.35 [id number] Anju Mcnamara [facility] [address],[place] [address] 02/16/2022 15:13:14 02/16/2022 15:58:27 Routine care 664742440 Z34.91 [id number] Anju McnamaraKRISTEN [facility] [address] [address] 03/02/2022 15:02:03 03/02/2022 15:28:58 Routine care 722766829 Z34.91 [id number] Cassy Vo BOLA [facility] [address],[place] [address] 03/27/2022 10:37:37 03/27/2022 11:14:18 Mixed anxiety and depressive disorder 933905977 F41.8 Chest pain 37502230 R07. 9 She has a hx of [...] education instructor that will take her to [facility] ED (vitals are WNL, no acute distress noted).She has no thoughts of harming herself or others.She will call the office to schedule an appointmen t to be seen after ED evaluation . We discussed at that time can start therapy for depression /anxiety. RTC after cleared by ED Time spent with the patient was 20 minutes [id number] Shawn Bradley MD [facility] [address] [address] 04/16/2022 15:11:58 04/16/2022 17:11:09 Mixed anxiety and depressive disorder 553334285 F41.8 this patient is a 22-year-ol d [...] ce. More than 50% was counseling . [id number] Shawn Bradley MD [facility] [address] [address] 04/16/2022 16:43:28 04/16/2022 17:34:26 Abnormal uterine bleeding 5217370383 9100 N93.9 [id number] Cassy JoselinmauricioBOLA [facility] [address] [address] 06/19/2022 17:24:32 06/19/2022 18:03:44 Abnormal uterine bleeding 7729099741 9100 N93.9 We discussed likely spotting is [...] of plan of care. Pain in pelvis 52520648 R10.2 Contracept ion care management 680159025 Z30.9 Irregular periods 687791 07 N92.6 Venereal d isease screening 657000539 Z11.3 Anxiety 40654691 F41.9 [id number] Shawn Bradley MD [facility] [address],[place] [address] 10/02/2023 13:44:25 10/02/2023 14:07:54 screening 997260198 Z36.82 Z36.87 Z3A.11 [id number] Anju Mcnamara [facility] [address],[place] [address] 10/02/2023 13:46:45 10/02/2023 14:50:25 Amenorrhea 52406534 N91.2 plan NOB and first look NIPT and labs todaywants tubal ligation after delivery Gynecologi c examination 68803692 Z01.419 Z11.3 Z11.8 Nausea and vomiting 1693 2000 R11.2 [id number] Anju Mcnamara [facility] [address],[place] [address] 11/01/2023 11:17:59 11/01/2023 13:01:44 Gestation period, 16 weeks 22455798 Z3A.16 Anxiety 65523035 F41.9 [id number] Shawn Bradley MD [facility] [address],[place] [address] 11/27/2023 14:04:37 11/27/2023 15:16:15 screening for malformation 886982218 Z36.3 Z3A.19 [id number] Anju Mcnamara [facility] [address],[place] [address] 11/27/2023 14:13:33 11/27/2023 15:31:00 Routine care 949161329 Z34.91 [id number] [facility] [address],[place] [address] 12/25/2023 14:51:56 12/25/2023 15:52:45 Routine care 458634102 Z34.91 [id number] [facility] [address],[place] [address] 02/14/2024 14:13:14 02/14/2024 16:07:12 Routine care 651823175 Z34.91 [id number] [facility] [address],[place] [address] 03/27/2024 11:47:21 03/27/2024 12:30:07 Routine care 881285149 Z34.91 [id number] [facility] [address],[place] [address] 05/08/2024 14:54:41 05/11/2024 09:00:41 Screening procedure 53159813 Z13.9 Implantati on of subcutaneous contraceptive 557890225 Z30.46 reviewed se risks and benefits, bandage until skin closes, pressure bandage x 24 hourswill schedule bilateral salpingect kateryna with dr. bradley care 36859022 8 Z39.2 continue multivitam in Sterilizat ion requested 131105058 Z30.2 [id number] Shawn Bradley MD [facility] [address],[place] [address] 08/05/2024 13:57:53 08/05/2024 15:11:54 Contraception care management 646146608 Z30.9 Nexplanon removed without complicati ons. She tolerated well. [id number] Shawn Bradley MD [facility] [address],[place] [address] 01/14/2025 11:51:17 01/14/2025 12:53:24 Uncertain viability of 709545936 Z3A.01 [id number] Shawn Bradley MD [facility] [address],[place] [address] 01/14/2025 11:51:38 01/15/2025 09:38:25 Pain in pelvis 30079528 R10.2 25-year-ol d female presents for ER [...] care. She will return in 2 weeks. [id number] Shawn Bradley MD [facility] [address],[place] [address] 01/27/2025 14:42:15 01/27/2025 15:35:58 Abdominal pain in 147692783 O99.891 Z3A.01 [id number] Shawn Bradley MD [facility] [address],[place] [address] 01/27/2025 14:55:24 01/27/2025 16:41:41 Amenorrhea 92693211 N91.2 Z32.01 this patient is a 25-year-ol [...] begin routine care at her next visit. [id number] Shawn Bradley MD [facility] [address],[place] [address] 02/04/2025 10:09:23 02/04/2025 10:48:21 Headache 77079414 R51.9 Nausea and vomiting 1693 2000 R11.2 [...] to labor and delivery for IV fluids. [id number] MD Shun Galarza [address],[place] [address] 03/02/2025 12:17:19 03/02/2025 12:53:50 screening 903038704 Z36.82 Z3A.11 [id number] Shawn Bradley MD [facility] [address],[place] [address] 03/02/2025 12:17:40 03/02/2025 15:40:54 Anxiety 10561423 F41.9 care status 24 3540589 Z34.81 [id number] Shawn Bradley MD [facility] [address],[place] [address] 03/08/2025 10:47:16 03/08/2025 11:13:32 Complication occurring during 614753602 O99.891 Z3A.13 [id number] Shawn Bradley MD [facility] [address],[place] [address] 03/12/2025 15:59:57 03/13/2025 11:16:32 Urinary symptoms 277636328 R39.9 Anxiety 46408389 F41.9 Headache 49945668 R51.9 G89.29 [id number] Anju Mcnamara [facility] [address],[place] [address] 03/31/2025 08:58:49 03/31/2025 12:05:58 Urinary symptoms 433255221 R39.9 Yeast detected 728922867 B37.9 Nausea 116981418 R11.0 [id number] Shawn Bradley MD [facility] [address],[place] [address] 04/20/2025 16:29:09 04/20/2025 17:09:27 Uncertain viability of 600137703 O36.80X1 Z3A.19 [id number] Shawn Bradley MD [facility] [address],[place] [address] 04/22/2025 09:24:41 04/26/2025 09:10:43 Acute back pain with sciatica 935963802 M54.40 Migraine w ithout aura, not refractory 317950615 G43.009 care status 24 9652630 Z34.82 [id number] Shawn Bradley MD [facility] [address] [address] 04/28/2025 13:46:05 04/28/2025 15:08:40 Ultrasound scan - obstetric 316767530 Z36.3 Z3A.20 [id number] Anju Mcnamara CNM [facility] [address] [address] 04/28/2025 13:46:26 04/28/2025 15:22:57 Gestation period, 20 weeks 72602571 Z3A.20 Health Concerns Section Related Observation LastModified by Organization Detai ls LastModified Time None Recorded Concern Status LastModified by Organization Details LastModified Time None Recorded Advance Directives Directive None Recorded Payers Insurance Date Sequence Insurance Name Policy Number Policy Roberts Covered Member ID Roberts Member ID Guarantor Name 05/20/2025 1 [facility] (MEDICAID HMO) [id number] Yuni Mejia [id number] Yuni Mejia Notes Date Note Type Note Provider Name and Address Organization Details Recorded Time 03/31/2025 text/html Generic HPI TemplateReported by Patient Anju Mcnamara CNM [address], [place], [address], [facility] 03/31/2025 12:05:14 04/22/2025 text/html OB ProblemReport ed by Patient Shawn Bradley MD [address], [place], [address], [facility] 04/24/2025 22:37:57 04/28/2025 text/html Generic HPI TemplateReported by Patient Anju Mcnamara CNM [address], [place], [address], [facility] 04/28/2025 15:22:38 OBGyn Episode Ob Episode Information Episode Created Date Number of Fetuses Patient Bloodtype Patient rh Status Prepregnancy Weight lbs Domestic Partner Domestic Partner Phone Father Name Animal Rescuer Status 03/14/20 20 1 CLOSED Fetus Data [...] Domestic Partner Domestic Partner Phone Father Name Animal Rescuer Status 07/05/20 21 1 CLOSED Fetus Data First Name Last Name Admitted to NICU Weight (g) Sex Living Outcome Pediatric Complications Fetus ID Race Codes Race Delivery Type , Spontane ous 75249 Jun Calculation Initial Jun Date Initial Exam [...] Domestic Partner Domestic Partner Phone Father Name Animal Rescuer Status 09/13/20 21 1 B Positive 103 diontre silva CLOSED Fetus Data First Name Last Name Admitted to NICU Weight (g) Sex Living Outcome Pediatric Complications Fetus ID Race Codes Race Delivery Type 3316.89 15 F true Full Term terminal meconium 33408 Vaginal Delivery Problems Problem Notes EIF in [place] noted03/05 PIH WNL, UC WNL Problem Name Start Date End Date Resolution Snomed Code Not e 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 Past history of gestational diabetes mellitus 656814778 Early 1 hr GTT @ 20wks 11/03 APPT Hyperemesis 111951130 phenerga n now prn Anxiety in 700909766 [address]51 will continue to monitor Jun Calculation Initial [...] Date Ultra Sound Latest Days Gestation 0 [email or web address] 09/14/2021 03/16/20 22 0 Pre-fabiola Flowsheet Flowsheet [...] Weight in lbs Pre/Post Dialysis Refused Weight 110.549728502077 BP Diastolic BP Location Tested BP Systolic [...] Weight in lbs Pre/Post Dialysis Refused Weight 119.323339064231 BP Diastolic BP Location Tested BP Systolic [...] Weight in lbs Pre/Post Dialysis Refused Weight 120.319794883190 BP Diastolic BP Location Tested BP Systolic [...] Weight in lbs Pre/Post Dialysis Refused Weight 124.689869017040 BP Diastolic BP Location Tested BP Systolic [...] Weight in lbs Pre/Post Dialysis Refused Weight 137.735612011455 BP Diastolic BP Location Tested BP Systolic [...] Weight in lbs Pre/Post Dialysis Refused Weight 145.7234520281 BP Diastolic BP Location Tested BP Systolic [...] Weight in lbs Pre/Post Dialysis Refused Weight 152.631752751586 BP Diastolic BP Location Tested BP Systolic [...] Weight in lbs Pre/Post Dialysis Refused Weight 150.168623297291 BP Diastolic BP Location Tested BP Systolic [...] Weight in lbs Pre/Post Dialysis Refused Weight 157.162974170844 BP Diastolic BP Location Tested BP Systolic [...] Weight in lbs Pre/Post Dialysis Refused Weight 158.559316195546 BP Diastolic BP Location Tested BP Systolic [...] Weight in lbs Pre/Post Dialysis Refused Weight 163.145013245644 BP Diastolic BP Location Tested BP Systolic [...] Weight in lbs Pre/Post Dialysis Refused Weight 134.663993876638 BP Diastolic BP Location Tested BP Systolic [...] At Estimated Date of Delivery false Thalassemia (Argentine, Sinhala, Mediterranean, Or Background): MCV < 80 false Neural Tube Defect (Meningom yelocele, Spina Bifida, Or Anencephaly) false Congenital Heart Defect false Down Syndrome false Erick-Sachs (eg, Nondenominational, Cajun, Lithuanian-[place]) f alse Lizzette Disease false Sickle Cell Disease Or Trait () false Hemophilia Or Other Blood Disorders false Muscular Dystrophy false Cystic Fibrosis false [place]'s Chorea false Intellectual Disability/Autism false If Yes, [...] 2 Induce d Regional-Ep idural 39 false [place] KRISTEN Spinal muscular atrophy Discharge Information Feeding Method Contraceptive Method Maternal HG B and HCT Levels Ob Episode Information Episode Created Date Number of Fetuses Patient Bloodtype Patient rh Status Prepregnancy Weight lbs Domestic Partner Domestic Partner Phone Father Name Animal Rescuer Status 07/05/20 21 1 CLOSED Fetus Data First Name Last Name Admitted to NICU Weight (g) Sex Living Outcome Pediatric Complications Fetus ID Race Codes Race Delivery Type 3175.14 4 F Full Term 05634 Vaginal Delivery Jun Calculation Initial Jun Date [...] Domestic Partner Domestic Partner Phone Father Name Animal Rescuer Status 11/01/19 24 1 B Positive 126 Virgil Daugherty CLOSED Fetus Data First Name Last Name Admitted to NICU Weight (g) Sex Living Outcome Pediatric Complications Fetus ID Race Codes Race Delivery Type 3401.94 M true Full Term 24019 Vaginal Delivery Problems Problem Notes gallbladder attack/pain - re ferral to Gen Surg Dr. Boles sent 11/08- pt never went because pain stopped Problem Name Start Date End Date Resolution Snomed Code Not e Anxiety 29814198 prozac Nausea 142250011 d/c zofran pump 11/08 per pt request hemorrhage 96859888 hx 2017 with d&c Jun Calculation Initial [...] Weight in lbs Pre/Post Dialysis Refused Weight 130.137268520196 BP Diastolic BP Location Tested BP Systolic [...] Weight in lbs Pre/Post Dialysis Refused Weight 136.941142624221 BP Diastolic BP Location Tested BP Systolic [...] Weight in lbs Pre/Post Dialysis Refused Weight 144.758200905838 BP Diastolic BP Location Tested BP Systolic [...] Weight in lbs Pre/Post Dialysis Refused Weight 154.288764236886 BP Diastolic BP Location Tested BP Systolic [...] Weight in lbs Pre/Post Dialysis Refused Weight 157.760891487255 BP Diastolic BP Location Tested BP Systolic [...] Domestic Partner Domestic Partner Phone Father Name Animal Rescuer Status 03/02/20 25 1 B Positive 164 OPEN Fetus Data First Name Last Name Admitted to NICU Weight (g) Sex Living Outcome Pediatric Complications Fetus ID Race Codes Race Delivery Type 39678 Problems Problem Notes GI consult Tachycardia Qamar r monitor 72 order- pt sent back on 03-27-25 Cardiology referral faxed per Dr Martínez office calling pt 04/21 to schedule consult scheduled 05/11 11:15AM Problem Name Start Date End Date Resolution Snomed Code Not e Uncomplicated moderate persistent asthma 03/02/2025 051165114 albuterol prn Abnormal placenta affecting management of mother 05/04/2025 70360531 MCI serial grow us Nausea and vomiting 03/02/2025 04888524 Anxiety 03/02/2025 13012883 sertralin e started 03/02/25 changed to prozac 10 on Frequent headache 05/03/2025 931663419 N eurology referral faxed 05/03 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 went to ed exam done cultures and rx sent, ?FM, await satellite project site monitor results rfilled zofran, precautions and education f/u 4 weeks with anatomy Flowsheet Date 04/20/2025 Gibson Score Blood Edema Fundus Height Fundus Units Glucose Ketones Leukocytes Nitrite Labor Signs Protein Cervic Dilation Cervic Effacement Cervic Station Type Weight in lbs Pre/Post Dialysis Refused BP Diastolic BP Location Tested BP Systolic BP Type Fetus Heart Rate Present Fetus Movement Comments Flowsheet Date 04/22/2025 Gibson Score Blood Edema Fundus Height Fundus Units Glucose Ketones Leukocytes Nitrite Labor Signs Protein Cervic Dilation Cervic Effacement Cervic Station Type Weight in lbs Pre/Post Dialysis Refused 168.221807636717 BP Diastolic BP Location Tested BP Systolic BP Type 73 L arm 114 sitting Fetus Heart Rate Present A 135 Present Fetus Movement A Yes Comments headache - frontal headache, sharp, muscle tension described as, light sensitivity, sound sensitivity. Throbbing. Possible migraine. Trial of migraine meds. Migraine meds prescribed. Has failed other steps in the the algorithm. Flowsheet Date 04/28/2025 Gibson Score Blood Edema Fundus Height Fundus Units Glucose Ketones Leukocytes Nitrite Labor Signs Protein Cervic Dilation Cervic Effacement Cervic Station Type Weight in lbs Pre/Post Dialysis Refused BP Diastolic BP Location Tested BP Systolic BP Type Fetus Heart Rate Present Fetus Movement Comments Flowsheet Date 04/28/2025 Gibson Score Blood Edema Fundus Height Fundus Units Glucose Ketones Leukocytes Nitrite Labor Signs Protein Cervic Dilation Cervic Effacement Cervic Station Type Weight in lbs Pre/Post Dialysis Refused [id number] BP Diastolic BP Location Tested BP Systolic BP Type 72 L arm 110 sitting Fetus Heart Rate Present Fetus Movement A Yes Comments anxiety increasing buspirone not working, discussed zoloft, to start trying,+FM reviewed anatomy, LVEIF, marginal cord insert f/u 4 weeks, education and precautions. talked to dr bradley about neurologist for migraines will check on appt Menstrual History Last Menstrual Date Menses Monthly [...]
--- OUTSIDE RECORDS SUMMARY | 2025-05-21 07:58 | XMS_ITS | Encounter Summary ---
Author Organization [facility] Address [address] [place] [address] Care Team Providers Care Commercial Coordinator Name Role Phone Steph Hightower MD Unavailable Tanner Paige MD Primary Care Provider Janell Celaya APNP Unavailable [phone] Encounter Details Date Type Department Care Team (Latest Contact Info) Description 05/21/2025 Travel Social History Tobacco Use Types Packs/Day [...] you are drinking? Patient does not drink 07/17/202 4 Q3: How often do you have si x or more drinks on one occasion? Never 05/13/2024 PHQ-2 Answer Date Recorded Patient Health Questionnaire-2 Score 0 05/13/2024 [facility] - Occupational Stress Questionnaire Answer Date [...] Assessment Author Status No 05/13/2024 1:23 AM JONIT Mariama Murray RN Active * Are you blind or do you have serious difficulty seeing, even when wearing glasses? Answer Date of Assessment Author Status No 05/13/2024 1:23 AM JONIT Mariama Murray RN Active * Do you have serious [...] 5:51 AM Real Jones RN Active * [place] Suicide Severity Rating Scale (Screener/Recent Self-Report) Question [...] Ferris RN Active documented in this encounter Plan of Treatment Not on file documented as of this encounter Visit Diagnoses Not on filedocumented in this encounter Care Teams Commercial Coordinator Relationship Specialty [place] [address] [place] [address] [place] [address] PCP - General FAMILY PRACTICE 07/01/24 Steph Hightower MD [address] [place] [address] Consulting Physician CARDIOVASCULAR DISEASE 11/07/22 Janell Celaya APNP [address] [place] [id number] NURSE PRACTITIONER 12/01/24 documented as of this encounter
--- NOTE | 2025-05-21 09:00 | PC.NURSE ---
Tamiko Mcnamara CNM on unit. Discussed pt admission and orders received. Pt complaining of headache x10 days.
[2025-05-21] MEDS: CALCIUM CARBONATE (TUMS) 500 MG (200 MG ELEMENTAL) PO (12:00)
--- NOTE | 2025-05-21 12:33 | P.HP_ITS ---
H&P: HPI History of Present Illness Date/Time: 05/21/25 12:33 Chief Complaint: Patient is a 25 year old, 23.6 weeks gestation . Patient was admitted today for evaluation of a headache that started 10 days ago. She has been seen in the ED and been treated by Dr. Mcginnis with no relief with exedrin tension, flexeril, fioricet, and imitrex. CT scan today wnl Patient is currently rating her headache 8/10 and currently resting with ice behind her neck. has been complicated by asthma for which she is taking symbicort, anxiety and depression where patient has been prescribed prozac and given referrals to a roof promenade tile setter, but patient has not started prozac and has no showed the psychiatry appointments, circumvallate placenta, marginal cord insertion, hyperemesis in the first trimester, past pregnancies have been complicated with anxiety and hyperemesis, but patient has had vaginal deliveries with a pp hemorrhage in 2018. Upon speaking to patient today, she feels that something is wrong and that she is now having suicidal thoughts without a plan. Review of Systems Review of Systems: All systems reviewed & are unremarkable except as noted in HPI and below PMFSH Past Medical History Medical History Encounter for supervision of normal in multigravida in second trimester related condition in second trimester Viral meningitis Anxiety Depression Surgical History Surgical History No pertinent past surgical history Family History Family History Grandparent Diabetes mellitus Social History Social History Smoking packs per day: 0.25 Smoking cigarettes per day: 5.0 Smoking status: Former smoker Tobacco type: e-cigarettes/vaping Second hand tobacco smoke exposure: No Alcohol intake: never Substance use: never Substance use type: marijuana Do You Feel Safe in your Home?: Yes Lack of Transportation: No Lack of Food: Never True Current Housing: I Have Housing Concerned About Future Housing: No Difficulty Paying Gas/Electric Bills: No Difficulty Paying for Meds: No Currently Unemployed: No Education: Grade School Difficulty w/ Childcare or Family Care: No Gender identity (if verbalized by the patient): Female Sexual Orientation (if Verbalized by the Patient): Straight or Heterosexual Spiritual care concerns: No Meds Home Medications and Allergies Home Medications ?Medication ?Instructions ?Recorded ?Confirmed ?Type albuterol sulfate 90 mcg/actuation 2 puff inhalation DAILY 02/04/25 05/11/25 History aerosol inhaler (Ventolin HFA) budesonide-formoterol HFA 80 2 puff inhalation DAILY 02/04/25 05/11/25 History mcg-4.5 mcg/actuation aerosol inhaler (Symbicort) Allergies Allergy/AdvReac Type Severity Reaction Status Date / Time terbutaline Allergy Severe Anaphylactic Verified 04/16/25 09:20 Shock amoxicillin (From Amoxil) AdvReac Palpitation Verified 04/16/25 09:20 s Vital Signs Vital Signs - 24 hr 05/21/25 08:09 05/21/25 08:10 05/21/25 08:15 Temperature Pulse Rate 88 79 Blood Pressure 109/70 101/62 Pulse Oximetry Oxygen Delivery Room Air 05/21/25 08:30 05/21/25 08:46 05/21/25 09:58 Temperature Pulse Rate 86 78 Blood Pressure 104/59 L 86/50 L Pulse Oximetry 99 Oxygen Delivery 05/21/25 10:03 05/21/25 10:08 05/21/25 10:13 Temperature Pulse Rate Blood Pressure Pulse Oximetry 99 98 98 Oxygen Delivery 05/21/25 10:16 05/21/25 10:16 05/21/25 10:20 Temperature 36.7 C Pulse Rate Blood Pressure Pulse Oximetry 97 94 Oxygen Delivery Exam Const: General: cooperative and ill appearing Nutritional Appearance: average body habitus Neck: Neck: normal visual inspection Chest: Chest palpation & inspection: normal inspection of the chest Resp: Effort & Inspection: normal respiratory effort Cardio: Rate: regular rate Rhythm: regular rhythm GI: Other: Gravid-soft Back/Spine/Pelvis: Back: no CVA tenderness Skin: General skin exam: normal color Neuro: General: patient oriented x3 Extrem: General: normal to inspection Psych: Appearance: grossly normal Assessment and Plan Assessment and plan (1) Headache: Code(s): R51.9 - Headache, unspecified Status: Acute Plan Plan of care was originally to have CT read and evaluated by hospitalist. After discussion with patient we have decided that transfer of care would be appropriate for a higher level of care. Being co-managed with Dr. Mcginnis. transfer accepted to [facility]
--- NOTE | 2025-05-21 12:36 | PC.NURSE ---
1225-Tamiko Mcnamara CNM at bedside to assess pt and discuss plan of care with pt. See notes about suicidal thoughts. 1236- Discussed with house coordinator and Tamiko Mcnamara CNM that no carbon capture power plant engineer is needed at this time for pt. Pt has no plan or no current suicidal thoughts.
--- NOTE | 2025-05-21 13:00 | PC.NURSE ---
Called [facility] for pt transport.
[2025-05-21] MEDS: CYCLOBENZAPRINE HCL 10 MG TABLET PO (13:13)
[2025-05-21 13:35] LABS: Hematocrit 33.0 % (37.0-47.0); Hemoglobin 10.4 g/dL (12.0-15.0); Immature Granulocyte Percent A 1.7 % (0-0.5); Lymphocytes Absolute Auto 1.81 K/mm3 (0.9-3.2); Mean Corpuscular HGB Conc 31.5 g/dl (32-36); Mean Corpuscular Hemoglobin 26.8 pg (26-34); Mean Corpuscular Volume 85.1 fl (80-100); Nucleated Red Blood Cells Absolute Auto 0.000 K/mm3 (0.0-0.012); Nucleated Red Blood Cells Perc 0.0 % (0.0-0.2); Platelet Count Result 282 k/mm3 (150-375); Red Blood Count 3.88 M/mm3 (4.2-5.4); White Blood Count 10.8 K/mm3 (4.5-10.0)
--- NOTE | 2025-05-21 13:45 | PC.NURSE ---
Ambulance here to transport pt.
[2025-05-21 13:57] LABS: Alanine Aminotransferase 12 U/L (6-35); Albumin Level 3.3 g/dL (3.5-5.1); Alkaline Phosphatase 73 U/L (38-126); Anion Gap 7 mmol/L (4-12); Aspartate Amino Transferase 23 U/L (14-36); Bilirubin,Total 0.3 mg/dL (0.2-1.3); Blood Urea Nitrogen 9 mg/dL (7-17); Calcium 9.5 mg/dL (8.4-10.2); Carbon Dioxide 22 mmol/L (22-30); Chloride 106 mmol/L (98-107); Estimated CRCL calculation 157 ml/min; Estimated Glomerular Filt Rate > 60; Glucose 94 mg/dL (65-110); Potassium 3.8 mmol/L (3.4-5.0); Sodium 135 mmol/L (137-145); Total Protein 6.7 g/dL (6.3-8.2); Uric Acid 2.7 mg/dL (2.5-7.5)
--- OUTSIDE RECORDS SUMMARY | 2025-05-24 07:26 | XMS_ITS | Encounter Summary ---
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 Gender Identity Not on file Sexual Orientation Not on file documented as of this encounter Plan of Treatment Not on file documented as of this encounter Visit Diagnoses Not on filedocumented in this encounter Additional Health Concerns Infection Onset Date Last Indicated Resolved Time COVID: Suspected 12/31/2024 12/31/2024 12/31/2024 3:10 PM SPORTS BETTING MANAGER documented as of this encounter Care Teams High School Admissions Representative Relationship Specialty Start Date End Date Kera Flanagan, [place] PCP - General 05/30/22 12/30/24 Tammi Menon APRN [address] Pediatric [place] [address] PCP - General Family Medicine 12/31/24 documented as of this encounter
--- OUTSIDE RECORDS SUMMARY | 2025-05-24 07:26 | XMS_ITS | Clinical Summary ---
Author Organization [facility] Address formerly [facility] [place] [address] Care Team Providers Care Thermocouple Tester Name Role Phone Steph Hightower MD Unavailable [...] Active Problems Problem Noted Date Diagnosed Date ([facility]) 05/13/2024 Headache 05/13/2024 Estimated Date of Delivery Comme nts Yes 09/11/2025 Based on Other B asis, per pt Encounters Date Type Department Care Team Description 05/21/2025 5:35 AM CDT - 05/21/2025 6:54 AM CDT Hospital Encounter [facility] [address] [place] [address] Nate Alvarez MD (Headache) Discharge Disposition: Home or Self Care (Routine Discharge) 05/21/2025 Travel 05/19/2025 Telephone [facility] [address] [place] [address] Steph Hightower MD Appointment Reminder 05/19/2025 Travel 05/18/2025 Orders Only [facility] [place] [address] [place] [address] Steph Hightower MD 05/15/2025 1:05 PM CDT - 05/15/2025 3:00 PM CDT Emergency [facility] [address] [place] [address] Nacho Breen MD Medical Problem Discharge Disposition: Home or Self Care (Routine Discharge) 05/15/2025 Travel 05/13/2025 12:46 PM CDT - 05/13/2025 2:22 PM CDT Hospital Encounter [facility] [address] [place] [address] Nate Alvarez MD Discharge Disposition: Home or Self Care (Routine Discharge) 04/02/2025 Abstract [facility] [address] [place] [address] Abstract, Doc Pccl 04/01/2025 Telephone [facility] [address] [place] [address] Steph Hightower MD Appointment Request 03/29/2025 Telephone [facility] [address] [place] [address] Steph Hightower MD Referral 03/24/2025 Scan [facility] [address] [place] [address] Scanned, Doc Pccl 03/16/2025 4:27 PM CDT - 03/16/2025 6:50 PM CDT [facility] [address] [place] [address] [place] [address] Kaitlin Colon MD Vomiting Discharge Disposition: Home or Self Care (Routine Discharge) 03/16/2025 Travel 03/12/2025 7:35 PM CDT - 03/12/2025 11:44 PM CDT [facility] [address] [place] [address] [place] [address] Tien Mehta, DO Chest Pain Discharge Disposition: Home or Self Care (Routine Discharge) 03/12/2025 Travel 03/05/2025 10:32 AM CDT - 03/05/2025 11:14 AM CDT [facility] [address] [place] [address] [place] [address] Fantasma Pedroza, DO Gi Problem Discharge Disposition: Home or Self Care (Routine Discharge) 03/05/2025 Travel 02/28/2025 5:59 PM CDT - 02/28/2025 7:58 PM CDT [facility] [address] [place] [address] [place] [address] Fantasma Pedroza, DO Vomiting Discharge Disposition: Home [...] Procedure Name Priority Date/Time Associated Diagnosis Comments NONSTRESS TEST Routine 05/21/2025 5:40 AM CDT Headache HC URINALYSIS AUTO W/MICRO Routine 05/21/2025 5:40 AM CDT Headache TROPONIN, QUANT STAT 05/15/2025 1:45 PM CDT COMPREHENSIVE METABOLIC PANEL STAT 05/15/2025 1:45 PM CDT CBC W/DIFF AUTOMATED STAT 05/15/2025 1:45 PM CDT ECG 12-LEAD STAT 05/15/2025 1:42 PM CDT NONSTRESS TEST Routine 05/13/2025 1:11 PM CDT ([facility]) URINE BACTERIA CULTURE Routine 1:10 PM CDT ([facility]) HC URINALYSIS AUTO W/MICRO Routine 05/13/2025 1:10 PM CDT ([facility]) URINE BACTERIA CULTURE STAT 5:16 PM CDT [...] COLOR (U) YELLOW 05/21/2025 5:58 AM CDT [facility] TRANSPARENCY SLIGHTLY CLOUDY 05/21/2025 5:58 AM CDT [facility] SPECIFIC GRAVITY (U) 1.030(H) 1.000 - 1.025 05/21/2025 5:58 AM CDT [facility] Comment:EQUAL TO OR GREATER THAN U PH 5.5 5.0 - 8.0 05/21/2025 5:58 AM CDT [facility] LEUKOCYTES (U) TRACE(A) NEGATIVE 05/21/2025 5:58 AM CDT [facility] NITRITES NEGATIVE NEGATIVE 05/21/2025 5:58 AM CDT [facility] PROTEIN RANDOM (U) NEGATIVE NEGATIVE 05/21/2025 5:58 AM CDT [facility] GLUCOSE (U) NEGATIVE NEGATIVE 05/21/2025 5:58 AM CDT [facility] KETONES MG/DL (U) NEGATIVE NEGATIVE 05/21/2025 5:58 AM CDT [facility] UROBILINOGEN 0.2 <1.0 EU/DL 05/21/2025 5:58 AM CDT [facility] BILIRUBIN (U) NEGATIVE NEGATIVE 05/21/2025 5:58 AM CDT [facility] BLOOD (U) NEGATIVE NEGATIVE 05/21/2025 5:58 AM CDT [facility] WBC/HPF 0-5 0 - 5 /HPF 05/21/2025 5:58 AM CDT [facility] RBC/HPF 0-5 0 - 5 /HPF 05/21/2025 5:58 AM CDT [facility] EPI/LPF RARE /LPF 05/21/2025 5:58 AM CDT [facility] URINE SPECIMEN OBTAINED BY CLEAN CATCH PROCEDURE / Unknown 05/21/2025 5:40 AM CDT us Nate Alvarez MD URINE ORDERABLES Final Result [facility] [address] [place] [address], * (ABNORMAL) COMPREHENSIVE METABOLIC PANEL (05/15/2025 1:45 PM CDT) Only the most recent of4 resultswithin the time period is included. SODIUM S/P/B 138 136 - 145 MMOL/L 05/15/2025 2:20 PM CDT [facility] POTASSIUM S/P/B 3.5 3.5 - 5.1 MMOL/L 05/15/2025 2:20 PM CDT [facility] CHLORIDE S/P/B 104 98 - 107 MMOL/L 05/15/2025 2:20 PM CDT [facility] CO2 24.7 21.0 - 32.0 MMOL/L 05/15/2025 2:20 PM CDT [facility] GLUCOSE 90 70 - 99 MG/DL 05/15/2025 2:20 PM CDT [facility] Comment: FASTING GLUCOSE 100 TO 125 MG/DL IS CONSISTENT WITH IMPAIRED FASTING GLUCOSE. FASTING GLUCOSE >125 MG/DL IS CONSISTENT WITH DIABETES. RANDOM GLUCOSE >200 MG/DL WITH HYPERGLYCEMIC SYMPTOMS IS CONSISTENT WITH DIABETES. PER ADA GUIDELINES BUN 7 6 - 24 MG/DL 05/15/2025 2:20 PM CDT [facility] CREATININE S/P/B 0.42(L) 0.55 - 1.02 MG/DL 05/15/2025 2:20 PM CDT [facility] CALCIUM S/P/B 8.6 8.4 - 10.5 MG/DL 05/15/2025 2:20 PM CDT [facility] BILIRUBIN TOTAL S/P/B 0.1(L) 0.2 - 1.0 MG/DL 05/15/2025 2:20 PM CDT [facility] Comment: THIS ASSAY IS NOT RECOMMENDED FOR PATIENTS UNDERGOING TREATMENT WITH ELTROMBOPAG DUE TO THE POTENTIAL FOR FALSELY ELEVATED RESULTS. ALKALINE PHOSPHATASE S/P/B 66 37 - 98 U/L 05/15/2025 2:20 PM CDT [facility] AST 12(L) 15 - 37 U/L 05/15/2025 2:20 PM CDT [facility] ALT 11(L) 14 - 59 U/L 05/15/2025 2:20 PM CDT [facility] TOTAL PROTEIN S/P/B 6.0(L) 6.4 - 8.2 G/DL 05/15/2025 2:20 PM CDT [facility] ALBUMIN S/P/B 2.3(L) 3.4 - 5.0 G/DL 05/15/2025 2:20 PM CDT [facility] ANION GAP 9.3 5.0 - 15.0 MMOL/L 05/15/2025 2:20 PM CDT [facility] OSMOLALITY (CALC) 284 MOSM/KG 025 2:20 PM CDT [facility] Comment:REFERENCE RANGE NOT ESTABLISHED GFR ESTIMATE >90 >89 ML/MIN/1. 73 M2 05/15/2025 2:20 PM CDT [facility] GFR NOTES GFR REFERENCE S: 05/15/2025 2:20 PM CDT [facility] Comment: THE ESTIMATED GFR IS CALCULATED [...] us Nacho Breen MD LABORATORY Final Result [facility] [place] [address], * (ABNORMAL) CBC W/DIFF AUTOMATED (05/15/2025 1:45 PM CDT) Only the most recent of4 resultswithin the time period is included. WBC 10.74 4.00 - 10.80 x10'3/uL 05/15/2025 1:56 PM CDT [facility] RBC 3.46(L) 4.10 - 5.40 x10'6/uL 05/15/2025 1:56 PM CDT [facility] HGB 9.4(L) 12.0 - 16.0 G/DL 05/15/2025 1:56 PM CDT [facility] HCT 29.0(L) 36.0 - 47.0 % 05/15/2025 1:56 PM CDT [facility] MCV 83.8 78.0 - 100.0 FL 05/15/2025 1:56 PM CDT [facility] MCH 27.2 27.0 - 31.0 PG 05/15/2025 1:56 PM CDT [facility] MCHC 32.4(L) 33.0 - 36.0 G/DL 05/15/2025 1:56 PM CDT [facility] RDW 12.8 11.5 - 14.5 % 05/15/2025 1:56 PM CDT [facility] PLT 269 150 - 350 x10'3/uL 05/15/2025 1:56 PM CDT [facility] MPV 9.4 7.4 - 10.4 FL 05/15/2025 1:56 PM CDT [facility] CBC COMMENT NORMAL REFERENCE RANGE NOT ESTABLISHED FOR THE PROPORTIONAL LEUKOCYTE DIFFERENTIAL. 05/15/2025 1:56 PM CDT [facility] NEUTROPHILS % 70.1 % 05/15/2025 1:56 PM CDT [facility] LYMPHOCYTES % 16.9 % 05/15/2025 1:56 PM CDT [facility] MONOCYTES % 10.3 % 05/15/2025 1:56 PM CDT [facility] EOSINOPHILS % 1.1 % 05/15/2025 1:56 PM CDT [facility] BASOPHILS % 0.4 % 05/15/2025 1:56 PM CDT [facility] IMMATURE GRANS % 1.2 % 05/15/20 1:56 PM CDT [facility] NRBC % 0.0 % 05/15/2025 1:56 PM CDT [facility] ABS. NEUTROPHILS 7.52 1.60 - 8.30 x10'3/uL 05/15/2025 1:56 PM CDT [facility] ABS. LYMPHOCYTES 1.82 0.80 - 4.70 x10'3/uL 05/15/2025 1:56 PM CDT [facility] ABS. MONOCYTES 1.11 0.00 - 1.50 x10'3/uL 05/15/2025 1:56 PM CDT [facility] ABS. EOSINOPHILS 0.12 0.00 - 0.40 x10'3/uL 05/15/2025 1:56 PM CDT [facility] ABS. BASOPHILS 0.04 0.00 - 0.20 x10'3/uL 05/15/2025 1:56 PM CDT [facility] ABS. IMMATURE GRANULOCYTES 0.13(H) 0.00 - 0.03 x10'3/uL 05/15/2025 1:56 PM CDT [facility] ABS. NUCLEATED RBC'S 0.00 0.00 - 0.01 x10'3/uL 05/15/2025 1:56 PM CDT [facility] 05/15/2025 1:45 PM CDT us Nacho Breen MD LABORATORY Final Result [facility] [address] [place] [address], * TROPONIN, QUANT (05/15/2025 1:45 PM CDT) Only the most recent of4 resultswithin the time period is included. TROPONIN I HIGH SENSITIVITY 4 0 - 51 ng/L 05/15/2025 2:20 PM CDT [facility] 05/15/2025 1:45 PM CDT us Nacho Breen MD LABORATORY Final Result [facility] [address] [place] [address], * ECG 12 lead (05/15/2025 1:42 PM CDT) Only the most recent of3 resultswithin the time period is included. 05/15/2025 1:4 2 PM CDT Narrative [facility] [place] [facility] - 05/15/2025 7:17 PM CDT [address] [place] [address] Test Date: 2025-05-15 Pat Name: LIBRADO MEJIA Department: 3 Room: EXAM 707 Gender: Female Dairy Tester: : 2000 Requested By: NACHO BREEN Order Number: [id number] Reading : Jose Marie Measurements Intervals [place] Rate: 79 P: 60 NM: 167 QRS: 69 QRSD: 77 T: 54 QT: 349 QTc: 400 Interpretive Statements SINUS RHYTHM Procedure Note Jose Marie MD - 05/15/[address] [place] [address] Test Date: 2025-05-15 Pat Name: LIBRADO MEJIA Department: 3 Room: EXAM 707 Gender: Female Dairy Tester: : 2000 Requested By: NACHO BREEN Order Number: [id number] Reading MD: Jose Marie Measurements Intervals [place] Rate: 79 P: 60 NM: 167 QRS: 69 QRSD: 77 T: 54 QT: 349 QTc: 400 Interpretive Statements SINUS RHYTHM us Nacho Breen MD ECG ORDERABLES Final Result [facility] * URINE BACTERIA CULTURE (05/13/2025 1:10 PM CDT) Only the most recent of2 resultswithin the time period is included. SPEC DESCRIPTION URINE CLEAN CATCH 05/13/2025 2:08 PM CDT [facility] SPECIAL REQUESTS NO SPECIAL REQUEST 05/13/2025 2:08 PM CDT [facility] CULTURE RESULT NO GROWTH (< OR = 1,000 CFU/ML) 05/15/2025 12:36 PM CDT [facility] URINE SPECIMEN OBTAINED BY CLEAN CATCH PROCEDURE / Unknown 05/13/2025 1:10 PM CDT 05/13/2025 9:16 PM CDT Nate Alvarez MD MICROBIOLOGY - GENERAL ORDERAB LES Final Result Performing Organization Address [facility] Co de Phone Number [facility] [address] [place] [address], [place] [phone] [facility] [address] [place] [address], * (ABNORMAL) TSH W/REFLEX (03/16/2025 5:15 PM CDT) Only the most recent of2 resultswithin the time period is included. TSH 0.102(L) 0.358 - 3.740 uIU/ML 03/16/2025 6:01 PM CDT [facility] Comment: ASSAY PERFORMED BY CHEMILUMINESCENT IMMUNOASSAY METHODOLOGY USING SIEMENS DIMENSION REAGENT. PATIENT RESULTS DETERMINED BY ASSAYS FROM DIFFERENT MANUFACTURERS AND/OR BY DIFFERENT METHODS MAY NOT BE COMPARABLE. 03/16/2025 5:15 PM CDT Kaitlin Colon MD LABORATORY Final Resul t Performing Organization Address City/[facility]/ZIP Co de Phone Number [facility] [address] [place] [address], [place] [phone] * THYROXINE, FREE (FT4) (03/16/2025 5:15 PM CDT) Only the most recent of2 resultswithin the time period is included. FREE T4 0.76 0.76 - 1.46 NG/DL 03/16/2025 6:24 PM CDT [facility] 03/16/2025 5:15 PM CDT us Kaitlin Colon MD LABORATORY Final Resul t Performing Organization Address City/[facility] Co de Phone Number [facility] [address] [place] [address], * MAGNESIUM (03/16/2025 5:15 PM CDT) MAGNESIUM 1.8 1.8 - 2.4 MG/DL 03/16/2025 6:01 PM CDT [facility] 03/16/2025 5:15 PM CDT Kaitlin Colon MD LABORATORY Final Resul t Performing Organization Address [facility] de Phone Number [facility] [address] [place] [address], * (ABNORMAL) HCG QUANT (SERUM)-CHORIONIC GONADOTROPIN (02/28/2025 6:33 PM CDT) HCG QUANTITATIVE 146,741(H ) 0.0 - 6.0 MIU/ML 02/28/2025 7:30 PM CDT [facility] Comment: WEEKS OF REFERENCE RANGES NON- [...] DO LABORATORY Final Result Performing Organization Address [facility] Co de Phone Number [facility] [address] [place] [address], * AMYLASE (02/28/2025 6:33 PM CDT) AMYLASE S/P/B 61 25 - 115 UNITS/L 02/28/2025 7:30 PM CDT [facility] 02/28/2025 6:33 PM CDT Fantasma Pedroza DO LABORATORY Final Result Performing Organization Address City/[facility]/ZIP Co de Phone Number [facility] [address] [place] [address], * LIPASE (02/28/2025 6:33 PM CDT) LIPASE 27 16 - 77 UNITS/L 02/28/2025 7:30 PM CDT [facility] 02/28/2025 6:33 PM CDT Fantasma Pedroza DO LABORATORY Final Result Performing Organization Address [facility] de Phone Number [facility] [address] [place] [address], from Last 3 Months Insurance FLOOD Care Teams Thermocouple Tester Relationship Specialty Start Date End Date Tanner Paige MD [address] [facility] [place] [address] PCP - General FAMILY PRACTICE 07/01/24 Steph Hightower MD [address] [place] [address] Consulting Physician CARDIOVASCULAR DISEASE 11/07/22 Janell Celaya APNP [address] [place] [phone] NURSE PRACTITIONER 12/01/24
--- OUTSIDE RECORDS SUMMARY | 2025-05-24 07:26 | XMS_ITS | Clinical Summary ---
Author Organization [facility] [employer] Address [address] [place] [address] Care Team Providers Care Fibre Technologist Name Role Phone Unavailable Primary Care Provider Unavailabl e Source Comments [facility] [employer],non-owned Affiliates and Associated Physician Practices is amultiple site organization consisting of ambulatory clinics and hospital sitesin [place], [place], [place] and [place]. This disclosure is being madepursuant to the Care Everywhere program and may not contain all information available regarding this patient. Last updated 18.[facility] [employer] Allergies Active Allergy Reactions Criticality Noted Date Comments Amoxicillin Itching 05/21/2025 Terbinafine Anaphylaxis High 05/21/2025 Medications * Be aware that medications may not be up to date on this document. Alwaysverify current medications with the patient. budesonide-form oterol (Symbicort) 80-4.5 MCG/ACT inhalerIndicati ons:Asthma Inhale 2 (two) puffs by mouth 2 times daily Reasons: Asthma Active albuterol HFA (Proventil; Ventolin; Proair) 108 (90 Base) MCG/ACT inhalerIndicati ons:Asthma Inhale 2 (two) puffs by mouth every 6 hours as needed for Shortness of Breath Reasons: Asthma Active Vit-DSS-Fe Fum-FA ( vitamin with iron) tabletIndicatio ns: Take 1 (one) tablet by mouth once daily Reasons: Active SUMAtriptan (Imitrex) 50 MG tablet Take 1 (one) tablet by mouth daily as needed - may repeat one time for Migraine Maximum daily dose: 200mg/24 hours 30 tablet Active riboflavin 400 MG capsule Take 1 (one) capsule by mouth once daily 100 capsule 3 Active Coenzyme Q10 (CoQ10) 100 MG Take 300 (three hundred) mg by mouth once daily 30 capsule 4 Active magnesium oxide (Mag-Ox) 400 MG tablet Take 1 (one) tablet by mouth once daily 60 tablet 4 Active Active Problems Problem Noted Date Diagnosed Date Intractable headache, unspec ified chronicity pattern, unspecified headache type 05/21/2025 Estimated Date of Delivery Comme nts Yes 09/11/2025 Based on Patient Reported Encounters Date Type Department Care Team Description 05/21/2025 2:48 PM CDT - 05/23/2025 2:10 PM CDT Hospital Encounter [facility] ANTEPARTUM/MOTHER [facility]ABY [address] [phone] Alistair Spicer DO Maternal Medicine Discharge Disposition: Home or Self Care 05/21/2025 Travel from Last 3 Months Social History Tobacco Use Types Packs/Day Years Used Date Smoking Tobacco: Never Assessed Overall Financial Resource Strain (CARDIA) Answe r Date Recorded How hard is it for you to pa y for the very basics like food, housing, medical care, and heating? Not hard at all 05/21/[address] [facility] [place] [facility] Occupat ional Health - Occupational Stress Questionnaire Answer Date Recorded Do you feel stress - tense, restless, nervous, or anxious, or unable to sleep at night because your mind is troubled all the time - these days? Not at all 05/21/2025 Hunger Vital Sign Answer Date Recorded Within the past 12 months, y ou worried that your food would run out before you got the money to buy more. Never true 05/21/20 Within the past 12 months, t he food you bought just didn't last and you didn't have money to get more. Never true 05/21/2025 PRAPARE - Transportation Answer Date Re corded In the past 12 months, has l ack of transportation kept you from medical appointments or from getting medications? No 04/28 In the past 12 months, has l ack of transportation kept you from meetings, work, or from getting things needed for daily living? No 05/21/2025 Housing Stability Vital Sign Answer Neil e Recorded In the last 12 months, was t here a time when you were not able to pay the mortgage or rent on time? No 05/21/2025 In the past 12 months, how m any times have you moved where you were living? 1 05/21/2025 At any time in the past 12 m [facility], were you homeless or living in a correction (including now)? No 05/21/2025 Estimated Date of Delivery Comme nts Yes 09/11/2025 Based on Patient Reported Sex and Gender Information Value Date Recorded Sex Assigned at Female 05/21/2025 10:17 PM CDT Legal Sex Female 2:57 PM CDT Gender Identity Not on file Sexual Orientation Not on file Last Filed Vital Signs Vital Sign Reading Time Taken Comments Blood Pressure 102/57 05/23/2025 8:35 AM CDT Pulse 91 05/23/2025 8:35 AM CDT Temperature 36.8 C (98.2 F) 05/23/2025 8:35 AM CDT Respiratory Rate 18 05/23/2025 8:35 AM CDT Oxygen Saturation 99% 05/23/2025 8:35 AM CDT Inhaled Oxygen Concentration - - Weight 76 kg (167 lb 8 oz) 05/21/2025 2:48 PM CD T Height 165.1 cm (5' 5) 05/21/2025 2:48 PM CDT Body Mass Index 27.87 05/21/2025 2:48 PM CDT Plan of Treatment Health Maintenance Due Date Last Done Comments HPV VACCINE (1 - 3-dose series) 2014 HEPATITIS C SCREENING 01/03/2017 DTAP/TDAP/TD VACCINES (1 - Tdap) 2018 HEPATITIS B VACCINE (1 of 3 - 19+ 3-dose series) 2018 PAP SMEAR 01/09/2020 COVID-19 VACCINE ( - 2023-2 5 season) 2024 DEPRESSION SCREENING 10/28/2024 OB-ONE HOUR GLUCOSE 06/05/2025 INFLUENZA VACCINE (#1) 2025 Respiratory Syncytial Virus (RSV) Vaccine Pt: or over 60 yrs (1 - Risk 1-dose series) 07/17/2025 ZOSTER VACCINE (1 of 2) 2049 HIV SCREENING Completed 02/19/2025 HIB VACCINE Aged Out No longer eligi ble based on patient's age to complete this topic MENINGOCOCCAL (Group B) VACC INE SHARED DECISION-MAKING Aged Out No longer eligibl e based on patient's age to complete this topic MENINGOCOCCAL GROUPS A/C/Y/W VACCINE Aged Out No longer eligible b ased on patient's age to complete this topic PNEUMOCOCCAL VACCINE Aged Out No long er eligible based on patient's age to complete this topic Procedures Procedure Name Priority Date/Time Associated Diagnosis Comments BLOOD TYPE VERIFICATION Routine 05/21/2025 5:35 PM CDT TYPE + SCREEN PANEL STAT 05/21/2025 5 :05 PM CDT FERRITIN Routine 05/21/2025 5:05 PM CDT COMPREHENSIVE METABOLIC PANEL STAT 05/21/2025 5:05 PM CDT Intractable headache, unspecified chronicity pattern, unspecified headache type CBC W AUTO DIFFERENTIAL STAT 05/21/2025 5:05 PM CDT Intractable headache, unspecified chronicity pattern, unspecified headache type from Last 3 Months Results * BLOOD TYPE VERIFICATION (05/21/2025 5:35 PM CDT) ABO Rh B POS 05/21/2025 6:3 4 PM CDT [facility] Blood Bank BLOOD SPECIMEN / Unknown Lab Venipuncture / Unknown 05/21/2025 5:35 PM CDT 05/21/2025 5:41 PM CDT Alistair Spicer DO LAB - BLOOD BANK ORDERABLES Fi nal Result [facility] [address] [phone] * TYPE + SCREEN PANEL (ALL [facility]) (05/21/2025 5:05 PM CDT) ABO Rh B POS 05/21/2025 6:10 PM CDT [facility] Comment:No history; collect retype. Antibody Screen NEG 6:10 PM CDT [facility] Blood Bank BLOOD SPECIMEN / Unknown Lab Venipuncture / Unknown 05/21/2025 5:05 PM CDT 05/21/2025 5:12 PM CDT us Alistair Spicer DO LAB - BLOOD BANK ORDERABLES Fi nal Result [facility] [address] [phone] * (ABNORMAL) CBC W AUTO DIFFERENTIAL (05/21/2025 5:05 PM CDT) WBC 11.0(H) 4.0 - 10.7 x10E9/L 05/21/2025 5:22 PM CDT [facility] RBC Count 3.87(L) 3.90 - 5.20 x10E12/L 05/21/2025 5:22 PM CDT [facility] Hemoglobin 10.6(L) 11.9 - 15.8 g/dL 05/21/2025 5:22 PM CDT [facility] Hematocrit 32.9(L) 34.8 - 46.1 % 05/21/2025 5:22 PM CDT [facility] MCV 85.0 80.0 - 98.0 fL 05/21/2025 5:22 PM CDT [facility] MCH 27.4 26.7 - 33.6 pg 05/21/2025 5:22 PM CDT [facility] MCHC 32.2 31.7 - 36.3 g/dL 05/21/2025 5:22 PM CDT [facility] RDW-CV 13.1 11.3 - 14.8 % 05/21/2025 5:22 PM CDT [facility] Platelet Count 282 150 - 420 x10E9/L 05/21/2025 5:22 PM CDT [facility] MPV 9.3 7.8 - 11.4 fL 05/21/2025 5:22 PM CDT [facility] Neutrophil % 71.1 41.0 - 74.0 % 05/21/2025 5:22 PM CDT [facility] Lymphocyte % 18.4 17.0 - 47.0 % 05/21/2025 5:22 PM CDT [facility] Monocyte % 7.3 3.0 - 11.0 % 05/21/2025 5:22 PM CDT [facility] Eosinophil % 1.2 0.0 - 7.0 % 05/21/2025 5:22 PM CDT [facility] Basophil % 0.3 0.0 - 1.6 % 05/21/2025 5:22 PM CDT [facility] Immature Granulocytes % 1.7(H) 0.0 - 1.0 % 05/21/2025 5:22 PM CDT [facility] Neutrophil Absolute 7.79(H) 1.60 - 7.50 x10E9/L 05/21/2025 5:22 PM CDT [facility] Lymphocyte Absolute 2.01 1.00 - 4.40 x10E9/L 05/21/2025 5:22 PM CDT [facility] Monocyte Absolute 0.80 0.15 - 1.00 x10E9/L 05/21/2025 5:22 PM CDT [facility] Eosinophil Absolute 0.13 0.00 - 0.60 x10E9/L 05/21/2025 5:22 PM CDT [facility] Basophil Absolute 0.03 0.00 - 0.13 x10E9/L 05/21/2025 5:22 PM CDT [facility] Blood BLOOD SPECIMEN / Unknown Lab Venipuncture / Unknown 05/21/2025 5:05 PM CDT 05/21/2025 5:12 PM CDT Alistair Spicer DO LAB - HEMATOLOGY ORDERABLES Fi nal Result [facility] [address] [place] [address] * (ABNORMAL) COMPREHENSIVE METABOLIC PANEL (05/21/2025 5:05 PM CDT) Glucose 118(H) 70 - 99 mg/dL 05/21/2025 5:38 PM CDT [facility] Sodium 138 136 - 145 mmol/L 05/21/2025 5:38 PM CDT [facility] Potassium 3.3(L) 3.5 - 5.1 mmol/L 05/21/2025 5:38 PM CDT [facility] Chloride 106 98 - 107 mmol/L 05/21/2025 5:38 PM T [facility] CO2 23 22 - 29 mmol/L 05/21/2025 5:38 PM CDT [facility] Calcium 8.9 8.4 - 10.4 mg/dL 05/21/2025 5:38 PM [facility] Anion Gap 9 6 - 16 mmol/L 05/21/2025 5:38 PM T [facility] BUN 8 5.3 - 18.7 mg/dL 05/21/2025 5:38 PM T [facility] Creatinine 0.60 0.57 - 1.11 mg/dL 05/21/2025 5:38 PM [facility] Alkaline Phosphatase 71 40 - 150 U/L 05/21/2025 5:38 PM T [facility] ALT 8 6 - 57 U/L 05/21/2025 5:38 PM T [facility] AST 15 10 - 48 U/L 05/21/2025 5:38 PM [facility] Protein Total 6.4 6.4 - 8.3 gm/dL 05/21/2025 5:38 PM T [facility] Albumin 2.8(L) 3.1 - 4.5 gm/dL 05/21/2025 5:38 PM T [facility] Bilirubin Total 0.2 0.2 - 1.2 mg/dL 05/21/2025 5:38 PM [facility] eGFR by CKD-EPI >90 >=90 mL/min/1.7 3 m2 05/21/2025 5:38 PM [facility] Comment:Estimated Glomerular Filtration Rate (eGFR) calculated using the CKD-EPI Creatinine Equation (2020), per the National Kidney Foundation and [place] [employer]ph[employer] recommendations. Blood BLOOD SPECIMEN / Unknown Lab Venipuncture / Unknown 05/21/2025 5:05 PM CDT 05/21/2025 5:12 PM CDT us Alistair Spicer DO LAB - CHEMISTRY ORDERABLES Fin al Result [facility] [address] [place] [address] * FERRITIN (05/21/2025 5:05 PM CDT) Ferritin 12 5 - 204 ng/mL 05/21/2025 5:57 PM CDT [facility] Blood BLOOD SPECIMEN / Unknown Lab Venipuncture / Unknown 05/21/2025 5:05 PM CDT 05/21/2025 5:12 PM CDT Alistair Spicer DO LAB - CHEMISTRY ORDERABLES Fin al Result [facility] [address] [place] [address] from Last 3 Months Insurance Advance Directives * Full Code (Latest Code Status on File) Date Activated Date Inactivated Comments 05/21/2025 3:16 PM 05/23/2025 3:20 PM
--- OUTSIDE RECORDS SUMMARY | 2025-05-24 07:26 | XMS_ITS | Clinical Summary ---
Author Organization [employer] [address] Address [address] [facility] [address] [place] [address] Phone Care Team Providers Care Finance Admin Name Role Phone Unavailable Primary Care Provider Unavailabl e Allergies No known active allergies Medications vits15/iron/fol ic/dss ( VIT [id number] SS ORAL) Take by mouth. 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 BILIRUBIN UA Negative Negative 04/27/2025 10:27 AM [facility] KETONES UA Negative Negative 04/27/2025 10:27 AM T [facility] BLOOD UA Negative Negative 04/27/2025 10:27 AM [facility] PH UA 7.0 5.0 - 8.0 04/27/2025 10:27 AM [facility] PROTEIN UA Negative Negative 04/27/2025 10:27 AM [facility] UROBILINOGEN UA 0.2 <2.0 mg/dL 10:27 AM [facility] NITRITE UA Negative Negative 04/27/2025 10:27 AM [facility] LEUKOCYTE ESTERASE UA Trace(A) Negative 04/27/2025 10:27 AM [facility] SPECIFIC GRAVITY UA POC 1.020 1.000 - 1.030 04/27/2025 10:27 AM [facility] Urine 04/27/2025 10:2 7 AM CDT 04/27/2025 10:29 AM CDT Narrative [facility] - 04/27/2025 10:27 AM CDT Recommend Urine Microcopic ([id number])and Urine Culture ([id number]) if indicated. Vicki River MD POINT OF CARE TE STING Final Result [facility] CLIA# [id number] [address] [place] [address] from Last 3 Months Insurance [employer] [place]
--- OUTSIDE RECORDS SUMMARY | 2025-05-24 07:26 | XMS_ITS | Clinical Summary ---
Author Organization [facility] Address [address] [place] [address] Care Team Providers Care News Intern Name Role Phone Tammi Menon DOREEN Primary [...] have care with Dr. Ortega Denson in [place], [place]. Assessment & Plan (07/04/2019 7:48 PM CDT): - no plans to initiate care [place] - gave Rx for doxylamine/pyridoxine for nausea - encouraged smoking cessation; recommended she d/w Dr. Addison Denson when she establishes care Abdominal pain in 07/04/2019 Overview (07/04/2019): 07/04/2019: presented to [facility], r/o for acute process. Transfer to [facility] for dating confirmation. 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 Gender Identity Not on file Sexual Orientation [...] Comments Blood Pressure 101/69 12/31/2024 5:25 PM MARINA PORTER Pulse 77 12/31/2024 5:25 PM MARINA PORTER Temperature 37.1 C (98.7 F) 12/31/2024 2:09 PM MARINA PORTER Respiratory Rate 18 12/31/2024 5:25 PM MARINA PORTER Oxygen Saturation 100% 12/31/2024 5:25 PM MARINA PORTER Inhaled Oxygen Concentration - - Weight 72.7 kg (160 lb 4.4 oz) 12/31/2024 2:09 P M MARINA PORTER Height 165.1 cm (5' 5) 12/31/2024 2:09 PM MARINA PORTER Body Mass Index 26.67 12/31/2024 2:09 PM MARINA PORTER Plan of Treatment Health Maintenance Due Date [...] patient's age to complete this topic Insurance [facility] Care Teams News Intern Relationship Specialty Start Date End Date Tammi Menon LauraDOREEN [address] Pediatric Emerg. Dept. [place] [phone] PCP - General Family Medicine 12/31/24
--- OUTSIDE RECORDS SUMMARY | 2025-05-24 07:26 | XMS_ITS | Referral Summary ---
Author Organization [facility] Address [address] [place] [address] Care Team Providers Care Adventure Therapist Name Role Phone Tammi Menon DOREEN Primary [...] have care with Dr. Ortega Denson in [place], [place]. Assessment & Plan (07/04/2019 7:48 PM CDT): - no plans to initiate care [place] - gave Rx for doxylamine/pyridoxine for nausea - encouraged smoking cessation; recommended she d/w Dr. Addison Denson when she establishes care Abdominal pain in 07/04/2019 Overview (07/04/2019): 07/04/2019: presented to [facility], r/o for acute process. Transfer to [facility] for dating confirmation. 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 Gender Identity Not on file Sexual Orientation Not on file Last Filed Vital Signs Vital Sign Reading Time Taken Comments Blood Pressure 101/69 12/31/2024 5:25 PM JOURNEYMAN SHEET METAL WORKER Pulse 77 12/31/2024 5:25 PM JOURNEYMAN SHEET METAL WORKER Temperature 37.1 C (98.7 F) 12/31/2024 2:09 PM JOURNEYMAN SHEET METAL WORKER Respiratory Rate 18 12/31/2024 5:25 PM JOURNEYMAN SHEET METAL WORKER Oxygen Saturation 100% 12/31/2024 5:25 PM JOURNEYMAN SHEET METAL WORKER Inhaled Oxygen Concentration - - Weight 72.7 kg (160 lb 4.4 oz) 12/31/2024 2:09 P M JOURNEYMAN SHEET METAL WORKER Height 165.1 cm (5' 5) 12/31/2024 2:09 PM JOURNEYMAN SHEET METAL WORKER Body Mass Index 26.67 12/31/2024 2:09 PM JOURNEYMAN SHEET METAL WORKER Plan of Treatment Not on file Insurance [facility] Care Teams Adventure Therapist Relationship Specialty Start Date End Date Tammi Menon APRN [address] [place] [address] PCP - General Family Medicine 12/31/24
--- OUTSIDE RECORDS SUMMARY | 2025-05-24 07:26 | XMS_ITS | Encounter Summary ---
Author Organization [facility] Address [address] [place] [address] Care Team Providers Care Zone Maintenance Technician Name Role Phone Unavailable Primary Care Provider Unavailabl e Reason for Referral * (Routine) - Open Specialty Diagnoses / Procedures Referred By Gibran t Referred To Contact Procedures Follow up with provider Alistair Spicer DO [address] [facility] [address] [place] [address] Phone: tel: fax: Referral ID Status Reason Start Date Expiration Date Visits Re quested Visits Authorized [id number] Open 05/23/2025 05/23/2026 1 1 Encounter Details Date Type Department Care Team (Latest Contact Info) Description 05/21/2025 2:48 PM CDT - 05/23/2025 2:10 PM CDT Hospital Encounter HC 5E ANTEPARTUM/MOTHER BABY [address] [place] [address] Alistair Spicer DO [address] [address] Maternal Medicine Discharge Disposition: Home or Self Care Social History Tobacco Use Types Packs/Day Years Used Date Smoking Tobacco: Never Assessed Overall Financial Resource Strain (CARDIA) Answe r Date Recorded How hard is it for you to pa y for the very basics like food, housing, medical care, and heating? Not hard at all 05/21/2025 [facility] [place] [facility] - Occupational Stress [...] any time in the past [address] [facility], were you homeless or living in a fpc (including now)? No 05/21/2025 Estimated Date of Delivery Comme nts Yes 09/11/2025 Based on Patient Reported Sex and Gender Information Value Date Recorded Sex Assigned at Female 05/21/2025 10:17 PM CDT Legal Sex Female 2:57 PM CDT Gender Identity Not on file Sexual Orientation Not on file documented as of this encounter Last Filed [...] Mass Index 27.87 05/21/2025 2:48 PM CDT documented in this encounter Functional Status * Is person deaf or have serious hearing difficulty? Answer Date of Assessment Author No 05/21/2025 2:59 PM CDT Rina Dejesus RN * Is person blind or have serious difficulty seeing? Answer Date of Assessment Author No 05/21/2025 2:59 PM CDT Rina Dejesus RN * Does person have serious difficulty walking/climbing stairs? Answer Date of Assessment Author No 05/21/2025 2:59 PM CDT Rina Dejesus RN * Does person have difficulty dressing/bathing? Answer Date of Assessment Author No 05/21/2025 2:59 PM CDT Rina Dejesus RN * Does person have difficulty doing errands alone? Answer Date of Assessment Author No 05/21/2025 2:59 PM CDT Rina Dejesus RN documented as of this encounter Mental Status * Does person have difficulty concentrating/remembering/making decisions? Answer Entry Date Author No 05/21/2025 2:59 PM JONIT Rina Dejesus RN documented in this encounter Medications at Time of Discharge albuterol HFA (Proventil; Ventolin; Proair) 108 (90 Base) MCG/ACT inhalerIndicatio ns:Asthma Inhale 2 (two) puffs by mouth every 6 hours as needed for Shortness of Breath Reasons: Asthma budesonide-formo terol (Symbicort) 80-4.5 MCG/ACT inhalerIndicatio ns:Asthma Inhale 2 (two) puffs by mouth 2 times daily Reasons: Asthma Coenzyme Q10 (CoQ10) 100 MG Take 300 (three hundred) mg by mouth once daily 30 capsule 4 05/23/2025 magnesium oxide (Mag-Ox) 400 MG tablet Take 1 (one) tablet by mouth once daily 60 tablet 4 05/23/2025 Vit-DSS-Fe Fum-FA ( vitamin with iron) tabletIndication s: Take 1 (one) tablet by mouth once daily Reasons: riboflavin 400 MG capsule Take 1 (one) capsule by mouth once daily 100 capsule 3 05/23/2025 SUMAtriptan (Imitrex) 50 MG tablet Take 1 (one) tablet by mouth daily as needed - may repeat one time for Migraine Maximum daily dose: 200mg/24 hours 30 tablet 05/23/2025 documented as of this encounter Progress Notes * Lyudmila Castro, RN - 05/23/2025 1:00 PM CDT Orders received to discharge patient. Discharge instructions given to patient, read through, and reviewed. All questions answered, no other needs at this time. * Alessandra Pagan, - 05/23/2025 7:50 AM CDT PGY2 Antepartum Progress Note Date: 05/23/2025 Hospital Day: 2 Subjective: Yuni Mejia is a 25 year old at 24w1d weeks gestation admitted for intractable KINNEY. No overnight events. This morning, pt states resolution of headache when she woke up. She reports steroid and magnesium helped yesterday. Pt denies chest pain, shortness of breath, vision changes andRUQ abdominal pain. (-) vaginal bleeding, (-) LOF, (-) ctx. (+) movement Objective: Patient Vitals for the past 24 hrs: Temp Pulse Resp BP SpO2 05/23/25 0425 97.9 ??F (36.6 ??C) -- -- -- -- 05/23/25 0415 -- 90 18 101/52 95 % 05/22/25 2000 98.3 ??F (36.8 ??C) 91 18 117/68 97 % 05/22/25 1515 98 ??F (36.7 ??C) 104 18 114/64 97 % 05/22/25 1200 98 ??F (36.7 ??C) 91 18 100/57 98 % 05/22/25 0825 97.8 ??F (36.6 ??C) 86 18 109/63 99 % Temp (36hrs) Max:98.3 ??F (36.8 ??C) Intake/Output Summary (Last 24 hours) at 05/23/2025 0750 Last data filed at 05/23/2025 0426 Gross per 24 hour Intake 1120.49 ml Output 200 ml Net 920.49 ml Physical Exam: General: alert, cooperative, no distress Lungs: breathing comfortably on room air Abdomen: gravid, nontender, no palpable contractions Lower Extremities: no edema, non-tender bilaterally Labs: Recent Labs Component Name 05/21/25 1705 WBC 11.0* HGB 10.6* HCT 32.9* PLTCOUNT 282 Recent Labs Component Name 05/21/25 1705 SODIUM 138 POTASSIUM 3.3* CHLORIDE 106 CO2 23 BUN 8 CREATININE 0.60 GLUCOSE 118* CALCIUM 8.9 ALBUMIN 2.8* ALKPHOS 71 ALT 8 AST 15 TBIL 0.2 TPROT 6.4 EGFR >90 NST/[place]: See separate procedure note MEDICATIONS FOR CURRENT ENCOUNTER: SCHEDULED MEDICATIONS: 0.9% NaCl injection 3 mL, Intracatheter, q8h budesonide-formoterol (Symbicort) 80-4.5 MCG/ACT inhaler 2 puff, Inhalation, BID nitrofurantoin monohyd macro crystals (Macrobid) capsule 100 mg, Oral, BID WC vitamin with iron tablet 1 tablet, Oral, QDAY sertraline (Zoloft) tablet 25 mg, Oral, QDAY [COMPLETED] iron sucrose (Venofer) injection 200 mg, Intravenous, Once [COMPLETED] magnesium sulfate 1 g in 100 mL bolus, Intravenous, Once [COMPLETED] methylPREDNISolone sod succ (SOLU-Medrol) 250 mg in NaCl IV 0.9 % 50 mL bolus, Intravenous, Once [COMPLETED] potassium chloride ER (Klor-Con M) tablet 40 mEq, Oral, Once [] diphenhydrAMINE (Benadryl) injection 25 mg, Intravenous, q6h [] metoclopramide (Reglan) injection 10 mg, Intravenous, q6h [] SUMAtriptan (Imitrex) injection 6 mg, Subcutaneous, Once CONTINUOUS MEDICATIONS: PRN MEDICATIONS: 0.9% NaCl injection 1-10 mL, Intracatheter, PRN acetaminophen (Tylenol) tablet 650 mg, Oral, q6h PRN albuterol HFA (Proventil; Ventolin; Proair) 108 (90 Base) MCG/ACT inhaler 2 puff, Inhalation, q6h PRN calcium carbonate (Tums) chew tablet 2 tablet, Oral, q4h PRN docusate sodium (Colace) capsule 100 mg, Oral, BID PRN Assessment: 25 year old at 24w1d, with Headache History - Patient reports history of mild occasional headaches outside of , now with almost daily headaches during . - Has tried Excedrin migraine for symptomatic management with mild improvement, however, her headaches persist. She has also tried Fioricet without improvement. She was given Imitrex at [facility] which didnot improve symptoms. - Presented to [facility] for evaluation of 10 days of persistent headache. Laboratory workup there WNL per report. CT head WNL per report. She was transferred to [facility] for Neurology evaluation. Presentation - On presentation, patient with persistent left sided frontal/temporal headache. - Examination without focal neurologic deficits - Vital signs stable, normotensive - CBC and CMP Plan: - Admit to for intractable KINNEY - QD EFM - Pt refusing reglan/benadryl and imitrex - She received IV magnesium 1 g x1 dose and Solu-Medrol 250 mg x 1 dose yesterday and reported improvement of KINNEY - Neurology consulted- recommend Vitamin B2 (Riboflavin) 400 mg, Coenzyme q10 300 mg and magnesium oxide 200 to 600 mg daily Anxiety/Depression - Patient with history of anxiety and depression, previously prescribed medications, however, has not been compliant with taking in the past. - Not currently in therapy - Reports depressed mood, worsened by persistent headaches. Denies suicidal or homicidal ideations. - Report of possible suicidal ideations given to transfer team. Spoke with Anju Mcnamara NP who evaluated the patient in the [facility] ED and stated that she had told her that earlier this week she wished she was because of how severe her headache is, but denied suicidal ideations or a plan. - Patient initially placed on 1:1 observation which was dc'd after denied suicidal ideations. - Discussed therapeutic options for treatment including starting Zoloft and the patient was interested Plan: - Started Zoloft 25mg daily - Continue to monitor - Plan to have follow up with Dr. Malik outpatient Possible chronic hypertension - Patient reports possible history of chronic hypertension when she was on Nexplanon and Depo for control. - No documented elevated blood pressures on chart review - BP on admission normotensive - Persistent headache, otherwise asymptomatic. - PIH labs wnl Plan: - Will defer PC ratio at this time as she is being treated for UTI - BP range: normotensive - Continue to monitor History of Palpitations - Patient with history of palpitations, previously worked up with Holter monitor and Cardiology - Cardiology recommended increased hydration and lifestyle changes - Currently asymptomatic and HR 80s UTI - Patient reports she was diagnosed with a UTI and prescribed a course of Macrobid and has taken 4 doses Plan: - Macrobid course ordered, last day 05/26 Anemia - History of anemia - Hg 9.4 (05/15) > 10.6 - Ferritin 12 - Venofer ordered Asthma - Patient with history of asthma, currently taking Symbicort BID and Albuterol as needed - Last took Albuterol earlier this week, notes that she is taking it every 1-2 weeks Plan: - Continue to monitor, may need to adjust Symbicort dosing Marginal cord insertion - History of marginal cord insertion this based on review of notes - Informal bedside growth [05/21] INFL EFW 685g (64%), vtx History of hemorrhage - hemorrhage in G2 requiring blood transfusion History of A1GDM - Report A1GDM in prior - HgA1c 5.1 (02/19) - Will need GCT at 28 weeks Supervision of - PNC: Dr. Mcginnis - PNLs: B+/I/-/-, NR - GCT: at 28 weeks - Dated by: L=4 - [05/21] INFL EFW 685g (64%), vtx - GBS: Collect at 36 weeks Alessandra Rosen. DO Latasha 05/23/2025 7:50 AM Cosigned by Alistair Spicer DO at 05/23/2025 11:26 AM CDT Associated attestation - Alistair Spicer DO - 05/23/2025 11:26 AM CDT MFM attending: Patient seen and examined on rounds. Agree with assessment and plan patient has no further headaches is doing well she successfully resolved her headache with the management employed including the IVsteroids and magnesium therefore she is stable to be discharged home would recommend the Benadryl Reglan cocktail or Imitrex and follow up with Neurology. In addition she may follow up with her primary OB provider which she has an appointment for on Wednesday May 28, 2025 and recommend a follow up co management visit with high-risk clinic over the next 2 weeks. Patient also reports good movements denies any leakage of fluid rupture membranes or vaginal bleeding. Physical examination vital signs stable afebrile heart was regular rate rhythm without murmur lungs are clear to auscultation bilaterally abdomen soft nontender nondistended gravid heart tones 140 extremities negative forclubbing cyanosis or edema no Homans sign neurologic exam was grossly intact +2/4 deep tendon reflexes no clonus. Overall reassuring status with category 1 tracing.Based on the above she is hemo dynamically stable to be discharged home with the instructions outlined she will follow up with Neurology her primary OB provider in 1 week and follow up in the high-risk clinic for co management in 2 weeks. It was reinforced with her the importance of her taking the medication prescribed for her migraines in order to prevent the recurrence again. The above was discussed with Ms. Mejia who understood all questions were answered she was reassured. She is in agreement with the management plan. labor and preeclampsia precautions along with kick counts were reviewed with the patientshe was instructed when to follow up with OB triage. Alistair Spicer DO [facility] on service * Fe Martinez RN - 05/23/2025 1:27 AM CDT Problem: Pain/Discomfort Goal: Patient exhibits reduced pain/discomfort as evidenced by pain scores Outcome: Sarmad Morrissey has taken Tylenol this evening with reported relief of headache. * Gordon Chery RN - 05/22/2025 8:29 PM CDT Problem: Pain/Discomfort Goal: Patient exhibits reduced pain/discomfort as evidenced by pain scores Outcome: Progressing Goal: Patient uses pharmacological and non-pharmacological pain management strategies. Outcome: Progressing Goal: Patient verbalizes acceptable level of pain relief and ability to engage in desired activity. Outcome: Progressing * Lyudmila Castro RN - 05/22/2025 3:23 PM CDT Yuni refusing imitrex at this time. * Meaghan Hart MD - 05/22/2025 11:56 AM CDT Non-Stress Test Interpretation Note: Date: 05/22/2025 Time period evaluated: 1105 - 1158 Gestational Age: 24w0d Indication(s): Gestational Diabetes Baseline: 140 bpm Variability: Moderate Accels: Present Decels: None Contractions: Absent Interpretation: Reactive and reassuring for gestational age Plan: Appropriate to remove from NST and Continue daily NST Meaghan Hart MD * Abel Arthur MD - 05/22/2025 11:51 AM CDT Neurology Progress Note Hospital Day: 1 Subjective: Yuni Mejia is a 25 year old female with intractable headache ongoing for past 10 days. When seenthis morning she reports headache has resolved. However she said earlier she woke up with a headache along the left side. Chart review shows she did not want to take Benadryl and Reglan. Objective: BP 109/63 Pulse 86 Temp 97.8 ??F (36.6 ??C) Resp 18 Ht 1.651 m (5' 5) Wt 76 kg (167 lb 8oz) SpO2 99% General: Well-developed, well-nourished Cardiac: symmetric dorsalis pedis pulses Neurological Exam: Mental status: Alert and oriented x 3. Affect is normal. Recent and remote memory are normal. Attention and concentration are normal. Speech is fluent and comprehension is intact. CN II- XII: intact Motor: Strength is grade 5/5 throughout. Bulk and tone are normal. No tremor or abnormal movement seen. Sensory: Left scalp paresthesia Reflexes: Symmetric 2+ Biceps , triceps, brachioradialis, knees, and ankles. Babinski responses are flexor bilaterally. Coordination: Normal. Gait and Station: Not checked PMHx: Depression SH: Lives at home FH, and ROS are otherwise unchanged since my last note. Current Medications: Medications[1] Lab Review Recent Labs Component Name 05/21/25 1705 SODIUM 138 POTASSIUM 3.3* CHLORIDE 106 CO2 23 BUN 8 CREATININE 0.60 GLUCOSE 118* CALCIUM 8.9 Recent Labs Component Name 05/21/25 1705 WBC 11.0* HGB 10.6* HCT 32.9* PLTCOUNT 282 Imaging No results found. Assessment: 1) Intractable headache: status migrainosus, analgesic overuse? 2) 24 week 0 day gestation 3) Fibromyalgia? 4) Depression Comment: Neurological exam as well as history does not show any obvious red flag features for headache. While here she reports improvement in the headache occasional flare-up of pain along the left temporal region. She received Imitrex 6 mg subcutaneous and IV magnesium yesterday. She is refusing Benadryl and Reglan. Plan: 1) I would recommend another subcutaneous Imitrex 6 mg time 1 today 2) IV magnesium 1 g x 1 today 3) IV Solu-Medrol 250 mg x 1 today. 4) For outpatient regimen: p.r.n. Imitrex 50 mg for acute migraine, Vitamin B2 (Riboflavin) 400 mg,Coenzyme q10 300 mg and magnesium oxide 200 to 600 mg daily. Minimize use of Excedrin migraine or Tylenol to not more than 2 to 3 times a week - If headache is resolved, then okay for discharge from neurology perspective. CANDACE Issa MD, PhD [place], Neurology at [facility] Diplomate, [place] [employer] (ABPN) Board Certified in Neurology and Clinical Neurophysiology [address], [address] [place] [address] (office) [phone] (FAX) [1] Current Facility-Administered Medications Medication 0.9% NaCl injection 3 mL And 0.9% NaCl injection 1-10 mL acetaminophen (Tylenol) tablet 650 mg albuterol HFA (Proventil; Ventolin; Proair) 108 (90 Base) MCG/ACT inhaler 2 puff budesonide-formoterol (Symbicort) 80-4.5 MCG/ACT inhaler 2 puff calcium carbonate (Tums) chew tablet 2 tablet diphenhydrAMINE (Benadryl) injection 25 mg docusate sodium (Colace) capsule 100 mg ferrous sulfate tablet 325 mg metoclopramide (Reglan) injection 10 mg nitrofurantoin monohyd macro crystals (Macrobid) capsule 100 mg vitamin with iron tablet 1 tablet sertraline (Zoloft) tablet 25 mg * Alessandra Pagan, - 05/22/2025 7:00 AM CDT PGY2 Antepartum Progress Note Date: 05/22/2025 Hospital Day: 1 Subjective: Yuni Mejia is a 25 year old at 24w0d weeks gestation admitted for intractable KINNEY. Overnight pt refused reglan and benadryl due to side effects. This morning, pt states resolution ofheadache when she woke up. She reports intermittent periods where she will be prodromal symptoms, but denies feeling an actual headache. Pt denies chest pain, shortness of breath, vision changes and RUQ abdominal pain. (-) vaginal bleeding, (-) LOF, (-) ctx. (+) movement Objective: Patient Vitals for the past 24 hrs: Temp Pulse Resp BP SpO2 05/22/25 0020 97.8 ??F (36.6 ??C) 88 18 102/57 97 % 05/21/252019 98.2 ??F (36.8 ??C) 99 19 102/55 97 % 05/21/25 2000 -- 80 20 -- 99 % 05/21/25 1511 98.4 ??F (36.9 ??C) 78 16 109/70 98 % Temp (36hrs) Max:98.4 ??F (36.9 ??C) Intake/Output Summary (Last 24 hours) at 05/22/2025 0700 Last data filed at 05/22/2025 0020 Gross per 24 hour Intake 1004.57 ml Output 50 ml Net 954.57 ml Physical Exam: General: alert, cooperative, no distress Lungs: breathing comfortably on room air Abdomen: gravid, nontender, no palpable contractions Lower Extremities: no edema, non-tender bilaterally Labs: Recent Labs Component Name 05/21/25 1705 WBC 11.0* HGB 10.6* HCT 32.9* PLTCOUNT 282 Recent Labs Component Name 05/21/25 1705 SODIUM 138 POTASSIUM 3.3* CHLORIDE 106 CO2 23 BUN 8 CREATININE 0.60 GLUCOSE 118* CALCIUM 8.9 ALBUMIN 2.8* ALKPHOS 71 ALT 8 AST 15 TBIL 0.2 TPROT 6.4 EGFR >90 NST/[place]: See separate procedure note MEDICATIONS FOR CURRENT ENCOUNTER: SCHEDULED MEDICATIONS: 0.9% NaCl injection 3 mL, Intracatheter, q8h budesonide-formoterol (Symbicort) 80-4.5 MCG/ACT inhaler 2 puff, Inhalation, BID diphenhydrAMINE (Benadryl) injection 25 mg, Intravenous, q6h metoclopramide (Reglan) injection 10 mg, Intravenous, q6h nitrofurantoin monohyd macro crystals (Macrobid) capsule 100 mg, Oral, BID WC potassium chloride ER (Klor-Con M) tablet 40 mEq, Oral, Once vitamin with iron tablet 1 tablet, Oral, QDAY sertraline (Zoloft) tablet 25 mg, Oral, QDAY [COMPLETED] magnesium sulfate 2 g in 50 mL bolus, Intravenous, Once [] SUMAtriptan (Imitrex) injection 6 mg, Subcutaneous, Once CONTINUOUS MEDICATIONS: PRN MEDICATIONS: 0.9% NaCl injection 1-10 mL, Intracatheter, PRN acetaminophen (Tylenol) tablet 650 mg, Oral, q6h PRN albuterol HFA (Proventil; Ventolin; Proair) 108 (90 Base) MCG/ACT inhaler 2 puff, Inhalation, q6h PRN calcium carbonate (Tums) chew tablet 2 tablet, Oral, q4h PRN docusate sodium (Colace) capsule 100 mg, Oral, BID PRN Assessment: 25 year old at 24w0d, with Headache History - Patient reports history of mild occasional headaches outside of , now with almost daily headaches during . - Has tried Excedrin migraine for symptomatic management with mild improvement, however, her headaches persist. She has also tried Fioricet without improvement. She was given Imitrex at [facility] which didnot improve symptoms. - Presented to [facility] for evaluation of 10 days of persistent headache. Laboratory workup there WNL per report. CT head WNL per report. She was transferred to [facility] for Neurology evaluation. Presentation - On presentation, patient with persistent left sided frontal/temporal headache. - Examination without focal neurologic deficits - Vital signs stable, normotensive - CBC and CMP Plan: - Admit to 5E for intractable KINNEY - QD EFM - Neurology consult, recommend scheduled Reglan/Benadryl q6hr, Mag 2g, and Imitrex 6mg x1 - Overnight, pt refused reglan and benadryl due to side effects. This morning she reports her KINNEY has resolved, but was called to be notified that it has reoccurred. Anxiety/Depression - Patient with history of anxiety and depression, previously prescribed medications, however, has not been compliant with taking in the past. - Not currently in therapy - Reports depressed mood, worsened by persistent headaches. Denies suicidal or homicidal ideations. - Report of possible suicidal ideations given to transfer team. Spoke with Anju Mcnamara NP who evaluated the patient in the [facility] ED and stated that she had told her that earlier this week she wished she was because of how severe her headache is, but denied suicidal ideations or a plan. - Patient initially placed on 1:1 observation which was dc'd after denied suicidal ideations. - Discussed therapeutic options for treatment including starting Zoloft and the patient was interested Plan: - Will start Zoloft 25mg daily - Continue to monitor - Plan to have follow up with Dr. Malik outpatient Possible chronic hypertension - Patient reports possible history of chronic hypertension when she was on Nexplanon and Depo for control. - No documented elevated blood pressures on chart review - BP on admission normotensive - Persistent headache, otherwise asymptomatic. - PIH labs wnl Plan: - Will defer PC ratio at this time as she is being treated for UTI - BP range: normotensive - Continue to monitor History of Palpitations - Patient with history of palpitations, previously worked up with Holter monitor and Cardiology - Cardiology recommended increased hydration and lifestyle changes - Currently asymptomatic and HR 80s UTI - Patient reports she was diagnosed with a UTI and prescribed a course of Macrobid and has taken 4 doses Plan: - Macrobid course ordered, last day 05/26 Anemia - History of anemia - Hg 9.4 (05/15) > 10.6 - Ferritin 12 - Venofer ordered Asthma - Patient with history of asthma, currently taking Symbicort BID and Albuterol as needed - Last took Albuterol earlier this week, notes that she is taking it every 1-2 weeks Plan: - Continue to monitor, may need to adjust Symbicort dosing Marginal cord insertion - History of marginal cord insertion this based on review of notes - Informal bedside growth [05/21] INFL EFW 685g (64%), vtx History of hemorrhage - hemorrhage in G2 requiring blood transfusion History of A1GDM - Report A1GDM in prior - HgA1c 5.1 (02/19) - Will need GCT at 28 weeks Supervision of - PNC: Dr. Mcginnis - PNLs: B+/I/-/-, NR - GCT: at 28 weeks - Dated by: L=4 - [05/21] INFL EFW 685g (64%), vtx - GBS: Collect at 36 weeks Alessandra Rosen. DO Latasha 05/22/2025 7:00 AM Cosigned by Alistair Spicer DO at 05/22/2025 12:45 PM CDT Associated attestation - Alistair Spicer DO - 05/22/2025 12:45 PM CDT MFM attending: Patient seen and examined on rounds. Agree with assessment and plan. Patient is feeling much betterthis morning on current headache cocktail with Benadryl and Reglan but she did not take it last night and headache reoccurred she was seen by Neurology this morning and regimen for outpatient management is detailed in his note which is appreciated and thank you for his co management of the patient otherwise she will now receive another dose of Imitrex subQ will continue with IV magnesium 1 g x1 dose and Solu-Medrol 250 mg x 1 dose if she remains hemodynamically stable and headaches appeared to be controlled we will discharge her home on the regiment with medications outlined in neurology notedated 05/22/2025. Due to generalized aches and pain she may have fibromyalgia but this may need further workup as an outpatient. On physical examination vital signs stable afebrile HEENT atraumatic normocephalic EOMI DORON a sclera clear conjunctiva pink throat clear neck is supple no JVD no lymphadenopathy no thyromegaly heart was regular rate rhythm without murmur lungs were clear to auscultation abdomen was soft nontender gravid no palpable contractions heart tones 140s extremities negative for clubbing or cyanosis no edema no calf tenderness. Neurological exam was grossly intact +2/4deep tendon reflexes no clonus. Therefore plan is to complete medications as noted above and as detailed in neurology note if she remains stable she will be candidate for discharge home tomorrow thiswas discussed with Ms. Mejia who understood all questions were answered and she was reassured she is in agreement with the management plan. We will also have her follow up with the high-risk clinic at least in 2 weeks and she may still continue care with her primary OB provider Dr. Mcginnis. The above was discussed with Ms. Mejia and SHAMIKA who understood all questions were answered and they were reassured. They are in agreement with the management plan. Alistair Spicer DO M on service * Pricila Glass RN - 05/22/2025 4:21 AM CDT Problem: Pain/Discomfort Goal: Patient exhibits reduced pain/discomfort as evidenced by pain scores Outcome: Progressing Goal: Patient uses pharmacological and non-pharmacological pain management strategies. Outcome: Progressing Goal: Patient verbalizes acceptable level of pain relief and ability to engage in desired activity. Outcome: Progressing documented in this encounter H&P Notes * Rina Salazar MD - 05/21/2025 3:37 PM CDT PGY3 Obstetric H&P Note 05/21/2025, 3:37 PM CC: HRT for evaluation of headache HPI: 25 year old at gestation Dating: LMP c/w 4 week ultrasound Estimated Date of Delivery: None noted. care: is with Dr. Mcginnis at [facility] Patient's is complicated by: Patient Active Problem List Diagnosis Date Noted Intractable headache, unspecified chronicity pattern, unspecified headache type 05/21/2025 Priority: Not Prioritized Patient presents with complaints of headache. The patient reports a history of occasional headachesoutside of that have significantly worsened during her . She states that she is having almost daily headaches. She reports that she takes Excedrin Migraine for her headaches and that they can mildly help for a period however do not completely resolve her symptoms. She states thatshe currently has a left sided frontal/temporal headache that has been present for the past 10 daysand is sharp and stabbing in nature with associated photophobia. Denies phonophobia, nausea or vomiting. She reports that she was given Imitrex this morning without improvement of her symptoms. She ot herwise denies any focal neurologic deficits. negative Ctx. negative LOF. negative VB. positive FM. 10-Point ROS was performed, all positives and pertinent negatives listed in HPI Medical History: Past Medical History[1] Reports a possible history of hypertension. History of A1GDM in prior . History of asthma,currently on Symbicort BID and Albuterol PRN. She denies history of bleeding disorders and clottingdisorders. Psych History: Depression: Yes Anxiety: Yes Bipolar disorder: denies Schizophrenia: denies Surgeries: Past Surgical History[2] Allergies: Allergies[3] Current Medications: Prior to Admission medications Medication Sig Start Date End Date Taking? Authorizing Provider albuterol HFA (Proventil; Ventolin; Proair) 108 (90 Base) MCG/ACT inhaler Inhale 2 (two) puffs by mouth every 6 hours as needed for Shortness of Breath Reasons: Asthma Yes Avis Moe MD budesonide-formoterol (Symbicort) 80-4.5 MCG/ACT inhaler Inhale 2 (two) puffs by mouth 2 times daily Reasons: Asthma Yes Avis Moe MD Vit-DSS-Fe Fum-FA ( vitamin with iron) tablet Take 1 (one) tablet by mouth once daily Reasons: Yes Avis Moe MD Family History[4] No history of infants born with defects No history of family members with bleeding disorders or history of blood clots. No history of breast, ovarian, or uterine cancer Obstetrical History: OB History Para Term AB Living 6 4 4 1 1 SAB IAB Ectopic Multiple Live Births 1 1 # Outcome Date GA Lbr Arron/2nd Weight Sex Type Anes PTL Lv 6 Current 5 Term 2023 39w0d M Vag-Spont 4 Term 2021 39w0d F Vag-Spont EDENILSON 3 Term 2020 39w0d F Vag-Spont 2 SAB 2018 SAB 1 Term 2018 39w0d F Vag-Spont Gynecologic History: History of abnormal pap smear: Denies History of procedure on cervix: Denies STI History: History of trichomonas. Denies gonorrhea, chlamydia, herpes, HIV, syphilis Social History: Social History Smoking status: Not on file Smokeless tobacco: Not on file Alcohol use: Not on file Drug use: Unknown Sexual activity: Not on file Objective: BP 109/70 (BP Location: Left arm, Patient Position: Lying) Pulse 78 Temp 98.4 ??F (36.9 ??C) (Oral) Resp 16 Ht 1.651 m (5' 5) Wt 76 kg (167 lb 8 oz) SpO2 98% Patient Vitals for the past 24 hrs: Temp Pulse Resp BP SpO2 05/21/25 1511 98.4 ??F (36.9 ??C) 78 16 109/70 98 % Electronic Monitoring - See separate procedure note Physical Exam General: no acute distress, alert and oriented Eyes: sclera white, extraocular eye movements intact Lungs: breathing comfortably on room air Abdomen: gravid, soft, non-tender Neuro: cranial nerves and motor function grossly intact Lower extremities: non-tender calves with no edema bilaterally Psych: appropriate affect Skin: warm, dry Bedside ultrasound: See informal growth note Current Lab Review: No results found for this visit on 05/21/25. Assessment/Plan: 25 year old at gestation, with Headache History - Patient reports history of mild occasional headaches outside of , now with almost daily headaches during . - Has tried Excedrin migraine for symptomatic management with mild improvement, however, her headaches persist. She has also tried Fioricet without improvement. She was given Imitrex earlier today which did not help her symptoms. - Presented to [facility] for evaluation of 10 days of persistent headache. Laboratory workup there WNL per report. CT head WNL per report. She was transferred to [facility] for Neurology evaluation. Presentation - On presentation, patient with persistent left sided frontal/temporal headache. - Examination without focal neurologic deficits - Vital signs stable, normotensive Plan: - Admit to 5E - CBC, CMP - Daily NST - Neurology consult, recommend scheduled Reglan/Benadryl q6hr, Mag 2g, and Imitrex 6mg x1 Anxiety/Depression - Patient with history of anxiety and depression, previously prescribed medications, however, has not been compliant with taking in the past. - Not currently in therapy - Reports depressed mood, worsened by persistent headaches. Denies suicidal or homicidal ideations. - Report of possible suicidal ideations given to transfer team. Spoke with Anju Mcnamara NP who evaluated the patient in the [facility] ED and stated that she had told her that earlier this week she wished she was because of how severe her headache is, but denied suicidal ideations or a plan. - Patient initially placed on 1:1 observation which was dc'd after denied suicidal ideations. - Discussed therapeutic options for treatment including starting Zoloft and the patient was interested Plan: - Will start Zoloft 25mg daily - Continue to monitor - Plan to have follow up with Dr. Malik outpatient Possible chronic hypertension - Patient reports possible history of chronic hypertension when she was on Nexplanon and Depo for control. - No documented elevated blood pressures on chart review - BP on admission normotensive - Persistent headache, otherwise asymptomatic. Plan: - CBC, CMP and P:C ordered on admission - Continue to monitor History of Palpitations - Patient with history of palpitations, previously worked up with Holter monitor and Cardiology - Cardiology recommended increased hydration and lifestyle changes - Asymptomatic at this time Plan: - Will continue to monitor UTI - Patient reports she was diagnosed with a UTI and prescribed a course of Macrobid and has taken 4 doses Plan: - Macrobid course ordered, last day 05/26 Anemia - History of anemia - Hg 9.4 (05/15) Plan: - CBC and ferritin ordered - Likely will benefit from Venofer pending results Asthma - Patient with history of asthma, currently taking Symbicort BID and Albuterol as needed - Last took Albuterol earlier this week, notes that she is taking it every 1-2 weeks Plan: - Continue to monitor, may need to adjust Symbicort dosing Marginal cord insertion - History of marginal cord insertion this based on review of notes - Informal bedside growth [05/21] INFL EFW 685g (64%), vtx History of hemorrhage - hemorrhage in G2 requiring blood transfusion History of A1GDM - Report A1GDM in prior - HgA1c 5.1 (02/19) - Will need GCT at 28 weeks Supervision of - PNC: Dr. Mcginnis - PNLs: B+/I/-/-, NR - GCT: at 28 weeks - Dated by: L=4 - [05/21] INFL EFW 685g (64%), vtx - GBS: Collect at 36 weeks Disposition: Admit to 5E for monitoring Discussed with Dr. Marie Cardozo MD 05/21/2025 3:37 PM MFM Fellow Addendum: In summary, Yuni Mejia is our 25 year old who presents today for evaluation of a headache. Will plan to consult neuro today migraine cocktail. Imaging from OSH wnl. Continue inpatient management. Rina Salazar MD [facility] Obstetrics and Gynecology, PGY-6 [1] Past Medical History: Diagnosis Date History of anemia History of asthma History of headache History of UTI [2] Past Surgical History: Procedure Laterality Date Cholecystectomy, Laparoscopic 2023 DILATION AND EVACUATION 2018 Hernia Repair 2023 [3] Allergies Allergen Reactions Amoxicillin Itching Terbinafine Anaphylaxis [4] No family history on file. Cosigned by Alistair Spicer DO at 05/21/2025 9:36 PM CDT Associated attestation - Alistair Spicer DO - 05/21/2025 9:36 PM CDT MFM attending: Patient seen examined with fellow. Agree with assessment and plan. Patient is 25-year-old female para 4011 at 27 weeks YANETH who presented from outside hospital due to intractable headaches with history of migraines easy similar headaches however the Heron progressively worsen has not relieved with Tylenol. She was given various medications at the outside hospital had a CAT scan that was negative and was transferred to our institution further evaluation. She is status post neurology consultation which was greatly appreciated a headache cocktail was proposed and was started to see if patient responds if she does not respond there is recommendation that she be placed on IV Solu-Medroland to obtain further head imaging with MRI for parenchyma and vascular evaluation. Otherwise fetalstatus is reassuring for the gestational age category 1 physical examination vital signs stable afebrile HEENT atraumatic normocephalic EOMI DORON a sclera clear conjunctiva pink throat clear neck is s upple negative JVD no lymphadenopathy no thyromegaly heart was regular rate rhythm without murmur lungs were clear to auscultation bilaterally abdomen is soft nontender nondistended gravid no masses no organomegaly heart tones 140s extremities negative for clubbing cyanosis or edema no Homanssign neurologic exam was grossly intact +2/4 deep tendon reflexes no clonus. Therefore plan is to admit to proceed with the headache cocktails and if no response will proceed with further diagnostic studies such as MRI and based on those findings will determine further management. The above is not consistent with preeclampsia or atypical preeclampsia labs were ordered and pending at the time of evaluation. The above was discussed with Ms. Mejia who understood all questions were answered she was reassured. She is in agreement with the management plan. At this time she does not have any suicidal ideations for hurting herself or others will observe closely for any signs and symptoms of depression or anxiety which would warranted psych evaluation. In addition will also obtain PIH labs due to the fact that there was a questionable history of transient hypertension the patient but does not appear that way at this time but will observe closely. Bedside ultrasound showed vertex presentation maximum vertical pocket 5.1 cm estimated [id number] gm 64%. Official ultrasound to follow and will be scheduled appropriately. DO VINNY Blount on service documented in this encounter Procedure Notes * Debra Peraza MD - 05/23/2025 11:47 AM CDT Non-Stress Test Interpretation Note: Date: 05/23/2025 Time period evaluated: 1008 - 1144 Gestational Age: 24w1d Indication(s): intractable headache Baseline: 140 bpm Variability: Moderate Accels: Present Decels: None Contractions: Absent Interpretation: Reactive and reassuring Plan: Appropriate to remove from NST Debra Peraza MD Cosigned by Alistair Spicer DO at 05/23/2025 2:28 PM CDT * Alessandra Pagan DO - 05/21/2025 5:51 PM CDT Non-Stress Test Interpretation Note: Date: 05/21/2025 Time period evaluated: 1630 - 1745 Gestational Age: Unknown Indication(s): Intractable headache Baseline: 135 bpm Variability: Moderate Accels: Present Decels: None one possible deceleration at 17:12, with reassuring monitoring 30 minutes following Contractions: Absent Interpretation: Reactive and reassuring Plan: Appropriate to remove from NST Alessandra Pagan DO Cosigned by Alistair Spicer DO at 05/21/2025 9:43 PM CDT * Theresa Aguilar MD - 05/21/2025 4:14 PM CDT PGY2 Informal ultrasound Preentation: vertex DVP 5.12 cm BPD 5.94 cm AC 20.20 cm FL 4.26 cm EFW 685g (64%) Theresa Aguilar MD Obstetrics and Gynecology, PGY-2 05/21/2025 4:15 PM Cosigned by Alistair Spicre DO at 05/21/2025 9:42 PM CDT documented in this encounter Consult Notes * Abel Arthur MD - 05/21/2025 4:15 PM CDTAssociated Order(s): IP CONSULT TO NEUROLOGY Neurology Consult Note Consult Date: 05/21/2025 Referring Physician: Alistair Spicer DO Reason for Consult I have been asked to see the patient in neurological consultation to render advice and opinion regarding intractable headache History of Present Illness History was obtained from a review of the electronic record and discussion with the patient and family. Ynui Mejia is a 25 year old female who is 23 weeks 6 days transferred from outside hospital for evaluation of intractable headache ongoing for past 10 days. She has tried several [id number] medications including Tylenol, Excedrin migraine, Fioricet, some muscle relaxers given by her primary doctor. She reports 1 year history of episodic headache localized along frontal and left-sided migrating to the back of head and neck. Denies any visual aura. Headache has become more frequent during and worse over past 10 days. Reports light sensitivity, sound sensitivity. No identifiable triggers except for light and hot weather. She also reports dizziness while walking. No reports of presyncope or syncope like symptoms. Denies any family history of migraines. Primary carephysician also has diagnosed with possible fibromyalgia. CT [facility] done [facility] at [facility] was reported normal. Exam BP 109/70 (BP Location: Left arm, Patient Position: Lying) Pulse 78 Temp 98.4 ??F (36.9 ??C) (Oral) Resp 16 Ht 1.651 m (5' 5) Wt 76 kg (167 lb 8 oz) SpO2 98% General: Well-developed, well-nourished Extremities: No edema, pulses intact. Neurological Examination: Mental Status: Awake, Alert. Oriented x3. Follows commands, has normal fund of knowledge, attention, short term recall, fluency, comprehension and insight. Cranial Nerves: Visual meyer are full without hemineglect. Pupils react equally to light. Extraocular movements are full. Facial sensation intact V1-V3. Facial movement intact, symmetric. Hearing intact to conversation. Nystagmus is not present. Palate elevates symmetrically and uvula is midline. Shoulder shrug symmetric with normal SCM and trapezius strength. Tongue midline without atrophy or fasciculations. Motor: No orbiting or pronator drift. Good rapid alternating and fine finger movements. No asterixis, tremor or myoclonus. Normal tone. No atrophy. No myotonia of thenar eminence or tongue noted. MRC Power grade of 5/5 Sensation: Intact to light touch, vibration. Tuning fork score >5/8 in both great toes. Reflexes: DTRs 1+ Br, Bi, Tr, knee, ankle. Plantar responses are flexor bilaterally. Coordination/Cerebellar: Intact to axzmtm-lkma-jclzsg, jvyi-et-kjma exam. Gait: not checked Past Medical History Past Medical History[1] Past Surgical History[2] Medications Medications[3] Allergies Allergies[4] Social History Social History[5] Family History Family History[6] REVIEW OF SYSTEMS: General: No recent fevers Eyes: No vision loss or diplopia ENT: No hearing loss Cardiac: No chest pain Respiratory: No shortness of breath GI: No bloody stools : No hematuria Skin: No rash Heme: Denies easy bruising Psych: Denies anxiety or depression Endocrine: Denies hair loss Musc: No arthralgias Detailed Neuro/Psych Review: _ negative for change in thinking, mood and memory _ negative for anxiety, depression, difficulty sleeping _ negative for involuntary movements, cramps or tremors _ head trauma _ negative for headache, stiff neck, LBP or LOC _ negative for double/blurred vision, slurred speech, trouble swallowing _ negative for dizziness, lightheadedness, vertigo or fainting _ negative for numbness, tingling or weakness of any body part. _ negative for bowel or bladder incontinence Lab Review No results for input(s): SODIUM, POTASSIUM, CHLORIDE, CO2, BUN, CREATININE, GLUCOSE, CALCIUM in the last 64259 hours. No results for input(s): WBC, HGB, HCT, PLTCOUNT in the last 49809 hours. Imaging No results found. Impression: 1) Intractable headache: status migrainosus, analgesic overuse? 2) 23 week 6 day gestation 3) ? Fibromyalgia Plan: 1) CT head completed at OSH reported normal. Neurological exam is nonfocal, non lateralizing. Her KINNEY pattern has not changed over past 1 year. The frequency has increased over past 10 days. Will try migraine cocktail medications. 2) IV Benadryl 25 mg, and IV Reglan 10 mg every 6 hr x 24-48 hrs 3) sc Imitrex 6 mg x 1 4) IV Magnesium 2 gm x 1 5) Los light, low stimulation environment. 6) If symptoms are note better by tomorrow would recommend IV solumedrol 250 mg q12 hr x 1 day and MR imaging studies of parenchyma and vein. - will follow. Many thanks- CANDACE Issa MD, PhD Tunneller, Neurology at [facility] Diplomate, [place] [employer] and [employer] (ABPN) Board Certified in Neurology and Clinical Neurophysiology [address], [address] [place] [address] (office) [phone] (FAX) [1] Past Medical History: Diagnosis Date History of anemia History of asthma History of headache History of UTI [2] Past Surgical History: Procedure Laterality Date Cholecystectomy, Laparoscopic 2023 DILATION AND EVACUATION 2018 Hernia Repair 2023 [3] Current Facility-Administered Medications Medication 0.9% NaCl injection 3 mL And 0.9% NaCl injection 1-10 mL acetaminophen (Tylenol) tablet 650 mg albuterol HFA (Proventil; Ventolin; Proair) 108 (90 Base) MCG/ACT inhaler 2 puff budesonide-formoterol (Symbicort) 80-4.5 MCG/ACT inhaler 2 puff calcium carbonate (Tums) chew tablet 2 tablet diphenhydrAMINE (Benadryl) injection 25 mg docusate sodium (Colace) capsule 100 mg magnesium sulfate 2 g in 50 mL bolus metoclopramide (Reglan) injection 10 mg nitrofurantoin monohyd macro crystals (Macrobid) capsule 100 mg vitamin with iron tablet 1 tablet sertraline (Zoloft) tablet 25 mg SUMAtriptan (Imitrex) injection 6 mg [4] Allergies Allergen Reactions Amoxicillin Itching Terbinafine Anaphylaxis [5] [6] No family history on file. documented in this encounter Plan of Treatment Scheduled Orders Name Type Priority Associated Diagnoses Order Schedule INITIATE RT BRONCHODILATOR PROTOCOL Respiratory Care Routine ONCE for 1 Occurrences starting 05/21/2025 until 05/21/2025 documented as of this encounter Procedures Procedure Name Priority Date/Time Associated Diagnosis Comments BLOOD TYPE VERIFICATION Routine 05/21/2025 5:35 PM CDT TYPE + SCREEN PANEL STAT 05/21/2025 5 :05 PM CDT CBC W AUTO DIFFERENTIAL STAT 05/21/2025 5:05 PM CDT Intractable headache, unspecified chronicity pattern, unspecified headache type COMPREHENSIVE METABOLIC PANEL STAT 05/21/2025 5:05 PM CDT Intractable headache, unspecified chronicity pattern, unspecified headache type FERRITIN Routine 05/21/2025 5:05 PM CDT documented in this encounter Results * BLOOD TYPE VERIFICATION (05/21/2025 5:35 PM CDT) ABO Rh B POS 05/21/2025 6:3 4 PM CDT [facility] Blood Bank BLOOD SPECIMEN / Unknown Lab Venipuncture / Unknown 05/21/2025 5:35 PM CDT 05/21/2025 5:41 PM CDT Alistair Spicer DO LAB - BLOOD BANK ORDERABLES Fi nal Result Performing Organization Address City/[facility]/ZIP Co de Phone Number [facility] [address] [place] [address] * FERRITIN (05/21/2025 5:05 PM CDT) Pathologist [facility] Ferritin 12 5 - 204 ng/mL 05/21/2025 5:57 PM CDT [facility] Blood BLOOD SPECIMEN / Unknown Lab Venipuncture / Unknown 05/21/2025 5:05 PM CDT 05/21/2025 5:12 PM CDT [facility] LAB - CHEMISTRY ORDERABLES Fin al Result [facility] [address] [place] [address] * (ABNORMAL) COMPREHENSIVE METABOLIC PANEL (05/21/2025 5:05 PM CDT) Glucose 118(H) 70 - 99 mg/dL 05/21/2025 5:38 PM CDT [facility] Sodium 138 136 - 145 mmol/L 05/21/2025 5:38 PM CDT [facility] Potassium 3.3(L) 3.5 - 5.1 mmol/L 05/21/2025 5:38 PM CDT [facility] Chloride 106 98 - 107 mmol/L 05/21/2025 5:38 PM CDT [facility] CO2 23 22 - 29 mmol/L 05/21/2025 5:38 PM CDT [facility] Calcium 8.9 8.4 - 10.4 mg/dL 05/21/2025 5:38 PM CDT [facility] Anion Gap 9 6 - 16 mmol/L 05/21/2025 5:38 PM CDT [facility] BUN 8 5.3 - 18.7 mg/dL 05/21/2025 5:38 PM CDT [facility] Creatinine 0.60 0.57 - 1.11 mg/dL 05/21/2025 5:38 PM T [facility] Alkaline Phosphatase 71 40 - 150 U/L 05/21/2025 5:38 PM CDT [facility] ALT 8 6 - 57 U/L 05/21/2025 5:38 PM CDT [facility] AST 15 10 - 48 U/L 05/21/2025 5:38 PM CDT [facility] Protein Total 6.4 6.4 - 8.3 gm/dL 05/21/2025 5:38 PM T [facility] Albumin 2.8(L) 3.1 - 4.5 gm/dL 05/21/2025 5:38 PM CDT [facility] Bilirubin Total 0.2 0.2 - 1.2 mg/dL 05/21/2025 5:38 PM [facility] eGFR by CKD-EPI >90 >=90 mL/min/1.7 3 m2 05/21/2025 5:38 PM [facility] Comment:Estimated Glomerular Filtration Rate (eGFR) calculated using the CKD-EPI Creatinine Equation (2020), per the National Kidney Foundation and [place] [employer]ph[employer] recommendations. Blood BLOOD SPECIMEN / Unknown Lab Venipuncture / Unknown 05/21/2025 5:05 PM CDT 05/21/2025 5:12 PM CDT us Alistair Spicer DO LAB - CHEMISTRY ORDERABLES Fin al Result [facility] [address] [place] [address] * (ABNORMAL) CBC W AUTO DIFFERENTIAL (05/21/2025 5:05 PM CDT) WBC 11.0(H) 4.0 - 10.7 x10E9/L 05/21/2025 5:22 PM CDT [facility] RBC Count 3.87(L) 3.90 - 5.20 x10E12/L 05/21/2025 5:22 PM CDT [facility] Hemoglobin 10.6(L) 11.9 - 15.8 g/dL 05/21/2025 5:22 PM CDT [facility] Hematocrit 32.9(L) 34.8 - 46.1 % 05/21/2025 5:22 PM CDT [facility] MCV 85.0 80.0 - 98.0 fL 05/21/2025 5:22 PM CDT [facility] MCH 27.4 26.7 - 33.6 pg 05/21/2025 5:22 PM CDT [facility] MCHC 32.2 31.7 - 36.3 g/dL 05/21/2025 5:22 PM CDT [facility] RDW-CV 13.1 11.3 - 14.8 % 05/21/2025 5:22 PM CDT [facility] Platelet Count 282 150 - 420 x10E9/L 05/21/2025 5:22 PM CDT [facility] MPV 9.3 7.8 - 11.4 fL 05/21/2025 5:22 PM CDT [facility] Neutrophil % 71.1 41.0 - 74.0 % 05/21/2025 5:22 PM CDT [facility] Lymphocyte % 18.4 17.0 - 47.0 % 05/21/2025 5:22 PM CDT [facility] Monocyte % 7.3 3.0 - 11.0 % 05/21/2025 5:22 PM CDT [facility] Eosinophil % 1.2 0.0 - 7.0 % 05/21/2025 5:22 PM CDT [facility] Basophil % 0.3 0.0 - 1.6 % 05/21/2025 5:22 PM CDT [facility] Immature Granulocytes % 1.7(H) 0.0 - 1.0 % 05/21/2025 5:22 PM CDT [facility] Neutrophil Absolute 7.79(H) 1.60 - 7.50 x10E9/L 05/21/2025 5:22 PM CDT [facility] Lymphocyte Absolute 2.01 1.00 - 4.40 x10E9/L 05/21/2025 5:22 PM CDT [facility] Monocyte Absolute 0.80 0.15 - 1.00 x10E9/L 05/21/2025 5:22 PM CDT [facility] Eosinophil Absolute 0.13 0.00 - 0.60 x10E9/L 05/21/2025 5:22 PM CDT [facility] Basophil Absolute 0.03 0.00 - 0.13 x10E9/L 05/21/2025 5:22 PM CDT [facility] Blood BLOOD SPECIMEN / Unknown Lab Venipuncture / Unknown 05/21/2025 5:05 PM CDT 05/21/2025 5:12 PM CDT Alistair Spicer DO LAB - HEMATOLOGY ORDERABLES Fi nal Result Performing Organization Address City/[facility] Co de Phone Number [facility] [address] [place], [place] [id number] * TYPE + SCREEN PANEL (ALL [facility] except [facility]) (05/21/2025 5:05 PM CDT) ABO Rh B POS 05/21/2025 6:10 PM CDT [facility] Comment:No history; collect retype. Antibody Screen NEG 6:10 PM CDT [facility] Blood Bank BLOOD SPECIMEN / Unknown Lab Venipuncture / Unknown 05/21/2025 5:05 PM CDT 05/21/2025 5:12 PM CDT Alistair pSicer DO LAB - BLOOD BANK ORDERABLES Fi nal Result [facility] [address] [place] [address], [facility] [phone] documented in this encounter Visit Diagnoses Diagnosis Intractable headache, unspecified chronicity pattern, unspecified headache type- Primary Intractable headache, unspecified chronicity pattern, unspecified headache type documented in this encounter Administered Medications Inactive Administered Medications - up to 3 most recent administrations Medication Order MAR Action Action Date Dose Rate Site 0.9% NaCl injection 1-10 mL 1-10 mL, Intracatheter, PRN, Other, peripheral line flush, Starting on Sat05/21/25 at 1510, Until Sat05/23/25 at 1515, Flush peripheral IV catheter with 1-10 mL of normal saline before and after medications and prn to clear blood from the line or to verify patency. 0.9% NaCl injection 3 mL 3 mL, Intracatheter, EVERY 8 HOURS, First dose on Sat05/21/25 at 1545, Until Discontinued, Flush peripheral IV catheter with 3 mL of normal saline every 8 hours. $ Given 05/23/2025 4:16 AM CDT 3 mL $ Given 05/22/2025 8:01 PM CDT 3 mL $ Given 05/22/2025 3:21 PM CDT 3 mL acetaminophen (Tylenol) tablet 650 mg 650 mg, Oral, EVERY 6 HOURS PRN, Mild Pain, Starting on Sat05/21/25 at 1510, Until Sat05/23/25 at 1515, Patient preference for lesser PRN pain meds may be honored when the patient requests a less strong medication, a lower dose, or a less intrusive route of administration when the lesser drug, dose and route have been ordered for the patient. This patient request must be documented in the MAR. If both oral and IV options are ordered for the same pain severity, give oral first unless patient cannot tolerate oral intake $ Given 05/23/2025 11:49 AM CDT 650 mg $ Given 05/22/2025 8:04 PM CDT 650 mg $ Given 05/22/2025 8:30 AM CDT 650 mg budesonide-formoterol (Symbicort) 80-4.5 MCG/ACT inhaler 2 puff 2 puff, Inhalation, 2 TIMES DAILY, First dose on Sat05/21/25 at 2100, Until Discontinued, Rinse mouth after use. WASTE DISPOSAL INSTRUCTION: Send to Pharmacy for Disposal.Indications:Asthma $ Given 05/23/2025 9:25 AM CDT 2 puffs $ Given 05/22/2025 9:46 PM CDT 2 puffs $ Given 05/22/2025 9:51 AM CDT 2 puffs calcium carbonate (Tums) chew tablet 2 tablet 2 tablet, Oral, EVERY 4 HOURS PRN, GI Upset, Starting on Sat05/21/25 at 1510, Until Sat05/23/25 at 1515 $ Given 05/22/2025 10:51 PM CDT 2 tablets diphenhydrAMINE (Benadryl) injection 25 mg 25 mg, Intravenous, EVERY 6 HOURS, 4 doses, First dose (after last modification) on Sat05/21/25 at 1800, Last dose on Sat05/22/25 at 1200, Administer IV at a rate not exceeding 25 mg/min. Can dilute in 5-10 mL NS as needed for patient comfort. $ Given 05/22/2025 8:30 AM CDT 25 mg $ Given 05/22/2025 12:22 AM CDT 25 mg $ Given 05/21/2025 5:36 PM CDT 25 mg ferrous sulfate tablet 325 mg 325 mg, Oral, DAILY AFTER LUNCH, First dose on Sat05/22/25 at 1300, Until Discontinued, Take with food. $ Given 05/22/2025 3:27 PM CDT 325 mg iron sucrose (Venofer) injection 200 mg 200 mg, Intravenous, ONCE, 1 dose, On Sat05/22/25 at 0815, May administer up to 200 mg of undiluted solution IVP slowly over 2-5 minutes. $ Given 05/22/2025 8:30 AM CDT 200 mg lactated ringers infusion ADS Med 1 dose, Starting on Sat05/21/25 at 1637, Until Sat05/21/25 at 1715, Created by cabinet override $ New Bag/Syringe 05/21/2025 5:15 PM CDT 1,000 mL 75 mL/hr magnesium sulfate 1 g in 100 mL bolus 1 g, at 100 mL/hr, Administer over 60 Minutes, Intravenous, ONCE, 1 dose, On 05/22/25 at 1215, Infuse at 1 gm/hr $ New Bag/Syringe 05/22/2025 3:58 PM CDT 1 g 100 mL/hr magnesium sulfate 2 g in 50 mL bolus 2 g, at 25 mL/hr, Administer over 120 Minutes, Intravenous, ONCE, 1 dose, On Sat05/21/25 at 1615, Infuse at 1 gm/hr $ New Bag/Syringe 05/21/2025 5:18 PM CDT 2 g 25 mL/hr methylPREDNISolone sod succ (SOLU-Medrol) 250 mg in NaCl IV 0.9 % 50 mL bolus 250 mg, at 100 mL/hr, Intravenous, ONCE, 1 dose, On Sat05/22/25 at 1215 $ New Bag/Syringe 05/22/2025 3:22 PM CDT 250 mg 100 mL/hr metoclopramide (Reglan) injection 10 mg 10 mg, Intravenous, EVERY 6 HOURS, 4 doses, First dose (after last modification) on Sat05/21/25 at 1800, Last dose on Sat05/22/25 at 1200, Inject undiluted IV slowly over 1 to 2 minutes. $ Given 05/21/2025 5:37 PM CDT 10 mg nitrofurantoin monohyd macro crystals (Macrobid) capsule 100 mg 100 mg, Oral, 2 TIMES DAILY WITH MEALS, 10 doses, First dose on Sat05/21/25 at 1800, Last dose on Sat05/26/25 at 0800, Macrobid capsules cannot be opened and need to be swallowed whole, Indication for anti-infective therapy: Documented infection, Site of anti-infective therapy: Urine/Genitourinary $ Given 05/23/2025 10:09 AM CDT 100 mg $ Given 05/22/2025 5:42 PM CDT 100 mg $ Given 05/22/2025 8:30 AM CDT 100 mg potassium chloride ER (Klor-Con M) tablet 40 mEq 40 mEq, Oral, ONCE, 1 dose, On Sat05/22/25 at 0900, Do not crush or chew. $ Given 05/22/2025 8:30 AM CDT 40 mE q vitamin with iron tablet 1 tablet 1 tablet, Oral, DAILY, First dose on Sat05/21/25 at 1545, Until DiscontinuedIndications: $ Given 05/23/2025 10:09 AM CDT 1 tablet $ Given 05/22/2025 8:30 AM CDT 1 tablet $ Given 05/21/2025 4:42 PM CDT 1 tablet sertraline (Zoloft) tablet 25 mg 25 mg, Oral, DAILY, First dose on Sat05/21/25 at 1630, Until Discontinued, Avoid concurrent administration wth grapefruit juice $ Given 05/23/2025 10:09 AM CDT 25 mg $ Given 05/22/2025 8:30 AM CDT 25 mg $ Given 05/21/2025 4:42 PM CDT 25 mg documented in this encounter Active and Recently Administered Medications Times are shown in CDT. Scheduled Medication Order 05/21/2025 05/22/2025 05/23/2025 0.9% NaCl injection 3 mL(Linked Group 1) 3 mL, Intracatheter, EVERY 8 HOURS, First dose on Sat05/21/25 at 1545, Until Discontinued, Flush peripheral IV catheter with 3 mL of normal saline every 8 hours. 1643 ($ Given - Provider: Jazmine Whitten, KAJAL)2020 (Not Administered - Provider: Pricila Glass RN - Reason: IV Currently Infusing) 040 (Not Administered - Provider: Pricila Glass RN - Reason: IV Currently Infusing)1521 ($ Given - Provider: Lyudmila Castro, RN)2000 ($ Given - Provider: Gordon Chery, KAJAL) 0416 ($ Given - Provider: Fe Martinez, KAJAL)1400 (Due) budesonide-formoterol (Symbicort) 80-4.5 MCG/ACT inhaler 2 puff 2 puff, Inhalation, 2 TIMES DAILY, First dose on Sat05/21/25 at 2100, Until Discontinued, Rinse mouth after use. WASTE DISPOSAL INSTRUCTION: Send to Pharmacy for Disposal. 1999 ($ Given - Provider: Erika Paige RCP) 0951 ($ Given - Provider: Nancy Roth RCP)214 ($ Given - Provider: Erika Paige RCP) 0925 ($ Given - Provider: Jyoti Caban, [employer]) diphenhydrAMINE (Benadryl) injection 25 mg () 25 mg, Intravenous, EVERY 6 HOURS, 4 doses, First dose (after last modification) on Sat05/21/25 at 1800, Last dose on Sat05/22/25 at 1200, Administer IV at a rate not exceeding 25 mg/min. Can dilute in 5-10 mL NS as needed for patient comfort. 1736 ($ Given - Provider: Jazmine Whitten, RN) 0022 ($ Given - Provider: Pricila Glass, RN)0603 (Not Administered - Provider: Pricila Glass RN - Reason: Refused-Patient)0830 ($ Given - Provider: Lyudmila Castro RN)1523 (Not Administered - Provider: Lyudmila Castro RN - Reason: Discontinued by physician) ferrous sulfate tablet 325 mg (CANCELED) 325 mg, Oral, DAILY AFTER LUNCH, First dose on 05/22/25 at 1300, Until Discontinued, Take with food. 1527 ($ Given - Provider: Lyudmila Castro, RN) iron sucrose (Venofer) injection 200 mg (COMPLETED) 200 mg, Intravenous, ONCE, 1 dose, On Sat05/22/25 at 0815, May administer up to 200 mg of undiluted solution IVP slowly over 2-5 minutes. 0830 ($ Given - Provider: Lyudmila Castro RN) magnesium sulfate 1 g in 100 mL bolus (COMPLETED) 1 g, at 100 mL/hr, Administer over 60 Minutes, Intravenous, ONCE, 1 dose, On 05/22/25 at 1215, Infuse at 1 gm/hr 1558 ($ New Bag/Syringe - Provider: Lyudmila Castro RN)1705 (Stopped - Provider: Lyudmila Castro RN) magnesium sulfate 2 g in 50 mL bolus (COMPLETED) 2 g, at 25 mL/hr, Administer over 120 Minutes, Intravenous, ONCE, 1 dose, On Sat05/21/25 at 1615, Infuse at 1 gm/hr 1718 ($ New Bag/Syringe - Provider: Jazmine Whitten, KAJAL)1918 (Stopped - Provider: Pricila Glass, KAJAL) methylPREDNISolone sod succ (SOLU-Medrol) 250 mg in NaCl IV 0.9 % 50 mL bolus (COMPLETED) 250 mg, at 100 mL/hr, Intravenous, ONCE, 1 dose, On 05/22/25 at 1215 1522 ($ New Bag/Syringe - Provider: Lyudmila Castro RN)1552 (Stopped - Provider: Lyudmila Castro RN) metoclopramide (Reglan) injection 10 mg () 10 mg, Intravenous, EVERY 6 HOURS, 4 doses, First dose (after last modification) on Sat05/21/25 at 1800, Last dose on Sat05/22/25 at 1200, Inject undiluted IV slowly over 1 to 2 minutes. 1737 ($ Given - Provider: Jazmine Whitten RN) 0022 (Not Administered - Provider: Pricila Glass RN - Reason: Refused-Patient)0604 (Not Administered - Provider: Pricila Glass RN - Reason: Refused-Patient)1217 (Not Administered - Provider: Lyudmila Castro RN - Reason: Refused-Patient) nitrofurantoin monohyd macro crystals (Macrobid) capsule 100 mg 100 mg, Oral, 2 TIMES DAILY WITH MEALS, 10 doses, First dose on Sat05/21/25 at 1800, Last dose on Sat05/26/25 at 0800, Macrobid capsules cannot be opened and need to be swallowed whole, Indication for anti-infective therapy: Documented infection, Site of anti-infective therapy: Urine/Genitourinary 1735 ($ Given - Provider: Jazmine Whitten RN) 0830 ($ Given - Provider: Lyudmila Castro RN)1742 ($ Given - Provider: Lyudmila Castro RN) 1009 ($ Given - Provider: Lyudmila Castro RN) potassium chloride ER (Klor-Con M) tablet 40 mEq (COMPLETED) 40 mEq, Oral, ONCE, 1 dose, On Sat05/22/25 at 0900, Do not crush or chew. 0830 ($ Given - Provider: Lyudmila Castro RN) vitamin with iron tablet 1 tablet 1 tablet, Oral, DAILY, First dose on Sat05/21/25 at 1545, Until Discontinued 164 ($ Given - Provider: Jazmine Whitten RN) 0830 ($ Given - Provider: Lyudmila Castro RN) 1009 ($ Given - Provider: Lyudmila Castro RN) sertraline (Zoloft) tablet 25 mg 25 mg, Oral, DAILY, First dose on Sat05/21/25 at 1630, Until Discontinued, Avoid concurrent administration wth grapefruit juice 164 ($ Given - Provider: Jazmine Whitten RN) 0830 ($ Given - Provider: Lyudmila Castro RN) 1009 ($ Given - Provider: Lyudmila Castro RN) PRN Medication Order 05/21/2025 05/22/2025 05/23/2025 0.9% NaCl injection 1-10 mL(Linked Group 1) 1-10 mL, Intracatheter, PRN, Other, peripheral line flush, Starting on Sat05/21/25 at 1510, Until 05/23/25 at 1515, Flush peripheral IV catheter with 1-10 mL of normal saline before and after medications and prn to clear blood from the line or to verify patency. acetaminophen (Tylenol) tablet 650 mg 650 mg, Oral, EVERY 6 HOURS PRN, Mild Pain, Starting on Sat05/21/25 at 1510, Until 05/23/25 at 1515, Patient preference for lesser PRN pain meds may be honored when the patient requests a less strong medication, a lower dose, or a less intrusive route of administration when the lesser drug, dose and route have been ordered for the patient. This patient request must be documented in the MAR. If both oral and IV options are ordered for the same pain severity, give oral first unless patient cannot tolerate oral intake 0830 ($ Given - Provider: Lyudmila Castro, RN)2003 ($ Given - Provider: Gordon Chery, KAJAL) 1149 ($ Given - Provider: Lyudmila Castro, KAJAL) albuterol HFA (Proventil; Ventolin; Proair) 108 (90 Base) MCG/ACT inhaler 2 puff 2 puff, Inhalation, EVERY 6 HOURS PRN, Shortness of Breath, Starting on Sat05/21/25 at 1510, Until 05/23/25 at 1515, Shake well before using. WASTE DISPOSAL INSTRUCTION: Send to Pharmacy for Disposal. calcium carbonate (Tums) chew tablet 2 tablet 2 tablet, Oral, EVERY 4 HOURS PRN, GI Upset, Starting on Sat05/21/25 at 1510, Until 05/23/25 at 1515 7202 ($ Given - Provider: Gordon Chery, RN) docusate sodium (Colace) capsule 100 mg 100 mg, Oral, 2 TIMES DAILY PRN, Constipation, Starting on Sat05/21/25 at 1510, Until 05/23/25 at 1515 No Frequency Medication Order 05/21/2025 05/22/2025 05/23/2025 lactated ringers infusion ADS Med (COMPLETED) 1 dose, Starting on Sat05/21/25 at 1637, Until Sat05/21/25 at 1715, Created by cabinet override 1715 ($ New Bag/Syringe - Provider: Jazmine Whitten RN) Linked Groups Order Group 1: SALINE LOCK, INSERT AND MAINTAIN (CANCELED) Routine, CONTINUOUS, Starting on Sat05/21/25 at 1515, Until Specified, New collection And 0.9% NaCl injection 3 mLJump to med 3 mL, Intracatheter, EVERY 8 HOURS, First dose on Sat05/21/25 at 1545, Until Discontinued, Flush peripheral IV catheter with 3 mL of normal saline every 8 hours. And 0.9% NaCl injection 1-10 mLJump to med 1-10 mL, Intracatheter, PRN, Other, peripheral line flush, Starting on Sat05/21/25 at 1510, Until Sat05/23/25 at 1515, Flush peripheral IV catheter with 1-10 mL of normal saline before and after medications and prn to clear blood from the line or to verify patency. documented in this encounter
--- OUTSIDE RECORDS SUMMARY | 2025-05-24 07:27 | XMS_ITS | Data Portability ---
Author Organization 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 Discussed plan. [email or web address] Not available 03/31/2025 11:14:53 04/28/2025 04/28/2025 Patient is _20__weeks . Discussed plan. [email or web address] Not available 04/28/2025 15:21:56 Plan of Treatment Reminders Order Date Submit Date Provider Last Modified By Organization Details Last Modified Time Details Appointments U/S OB GROWTH 2024 01:00P M ULTRASOUND Not available Not available Not available OB ROUTINE 2024 01:30P M Anju Mcnamara CNM Not available Not available Not available Lab urinaly sis, dipstic k 2024 025 [email or web address], [address], [place], [address], 04/22/2025 10:03:14 urinaly sis, dipstic k 2024 025 [email or web address] [address], [address], [place], [address], 03/31/2025 09:25:47 culture , urine 2024 025 [facility] (Lab), [address], [place], [address], 04/01/2025 23:59:19 Referral None recorde d. Procedures None recorde d. Surgeries None recorde d. Imaging US, obstetr ic, 2nd or 3rd trimest er 2024 025 [email or web address] [address], [place], [address], 04/30/2025 22:15:55 US, obstetr ic, limited 2024 025 [email or web address] [address], [place], [address], 04/21/2025 09:56:35 Medication Orders Zomig 5 mg tablet [address] [facility] [address] [facility] [place], [address], 04/22/2025 22:06:27 ondanse richelle HCl 4 mg tablet 2024 025 [facility], [address] [employer] , [place], [address], 03/31/2025 11:15:35 metroni dazole 500 mg tablet 2024 025 [facility], [address] [employer] , [place], [address], 04/16/2025 09:54:32 Difluca n 150 mg tablet 2024 025 [facility], [address] [employer] , [place], [address], 04/16/2025 09:54:28 Patient TargetsNo targets recorded. Patient InstructionsNo instructions recorded. Reason for Referral None Reported. Results Created Date Observation Date Name Description Value Unit Range Abnormal Flag Note LastModifiedBy Organization Detail LastModifiedTime 03/06/20 25 03/06/2025 [UNIT Y] ANEUP LOIDY NIPT fraction 5.7% normal Not Available [facility] [address] [facility], [place], [address], 03/06/2025 03:58:26 03/06/20 25 03/06/2025 [UNIT Y] ANEUP LOIDY NIPT sex chromosome aneuploidy NOT DETECT ED normal Not Available [facility] [address] [facility], [place], [address], 03/06/2025 03:58:26 03/06/20 25 03/06/2025 [UNIT Y] ANEUP LOIDY NIPT monosomy X LOW RISK <1 in 10,000 normal Not Available [facility] [address] [facility], [place], [address], 03/06/2025 03:58:26 03/06/20 25 03/06/2025 [UNIT Y] ANEUP LOIDY NIPT trisomy 13 LOW RISK <1 in 10,000 normal Not Available [facility] [address] [facility], [place], [address], 03/06/2025 03:58:26 03/06/20 25 03/06/2025 [UNIT Y] ANEUP LOIDY NIPT trisomy 18 LOW RISK <1 in 10,000 normal Not Available [facility] [address] [facility], [place], [address], 03/06/2025 03:58:26 03/06/20 25 03/06/2025 [UNIT Y] ANEUP LOIDY NIPT trisomy 21 LOW RISK <1 in 10,000 normal Not Available [facility] [address] [facility], [place], [address], 03/06/2025 03:58:26 03/06/20 25 03/06/2025 [UNIT Y] ANEUP LOIDY NIPT sex FEMALE normal Not Available [facility] [address] [facility], [place], [address], 03/06/2025 03:58:26 03/06/20 25 03/06/2025 [UNIT Y] ANEUP LOIDY NIPT gestation SINGLE TON normal Not Available [facility] [address], [place], [address], 03/06/2025 03:58:26 03/06/20 25 03/06/2025 [UNIT Y] ANEUP LOIDY NIPT for detailed report, see pdf See PDF normal Not Available [facility] [address], [place], [address], 03/06/2025 03:58:26 03/02/2003/02/2025 CULTU RE: URINE result report SEE RESULT S BELOW Test: Cultu re: Urine Speci men Sourc e: Urine - Clean Catch Speci men Type: Urine Speci men Date: 1455 Resul t Date: 8 Resul t Statu s: Final resul t Abnor mal: No Resul ting Lab: [facility] [address] [facility] [address] Tel: CULTU RE ----- ----- ----- --- No growt h in 1 day (dete ction level of 10,00 0 colon ies / ml.) Not Available [facility] (Lab) [address], [place], [address], 03/03/2025 22:42:27 03/12/2003/12/2025 CULTU RE: URINE result report SEE RESULT S BELOW Test: Cultu re: Urine Speci men Sourc e: Urine - Clean Catch Speci men Type: Urine Speci men Date: 2024 1600 Resul t Date: 2024 0610 Resul t Statu s: Final resul t Abnor mal: No Resul ting Lab: [facility] [address] [facility] [address] Tel: CULTU RE ----- ----- ----- --- No growt h in 1 day (dete ction level of 10,00 0 colon ies / ml.) Not Available [facility] (Lab) [address], [place], [address], 03/14/2025 07:15:03 03/12/20 25 03/12/2025 urina lysis , dipst ick Leukocytes ++ Not Available [facility], [place], [address], 03/12/2025 16:45:06 03/12/20 25 03/12/2025 urina lysis , dipst ick Protein + Not Available [facility] [address], [place], [address], 03/12/2025 16:45:06 03/12/20 25 03/12/2025 urina lysis , dipst ick pH 5 Not Available [facility] [address], [place], [address], 03/12/2025 16:45:06 03/12/20 25 03/12/2025 urina lysis , dipst ick Blood trace Not Available [facility] [address], [place], [address], 03/12/2025 16:45:06 03/12/20 25 03/12/2025 urina lysis , dipst ick Specific Melstone 1.015 Not Available [facility] [address], [place], [address], 03/12/2025 16:45:06 03/12/20 25 03/12/2025 urina lysis , dipst ick Ketone +++ Not Available [address] [address], [place], [address], 03/12/2025 16:45:06 03/31/20 25 03/31/2025 TSH, REFLE X FREE T4 TSH 0.42 uIU/m L 0.30-5 .33 Not Available [facility] (Lab) [address], [place], [address], 04/01/2025 03:05:12 03/31/20 25 03/31/2025 CULTU RE: URINE result report SEE RESULT S BELOW Test: Cultu re: Urine Speci men Sourc e: Urine Voide d Speci men Type: Urine Speci men Date: 171 Resul t Date: 2255 Resul t Statu s: Final resul t Abnor mal: No Resul ting Lab: [facility] [address] [facility] [address] Tel: CULTU RE ----- ----- ----- --- Cultu re resul t (>=3 organ isms prese nt) indic ates possi ble conta minat ion. Repea t cultu re if sympt oms indic ate. Not Available [facility] (Lab) [address], [place], [address], 04/01/2025 23:59:19 03/31/20 25 03/31/2025 urina lysis , dipst ick Leukocytes +1 Not Available [address], [place], [address], 03/31/2025 09:23:13 03/31/20 25 03/31/2025 urina lysis , dipst ick Nitrite normal Not Available [facility] [address], [place], [address], 03/31/2025 09:23:13 03/31/20 25 03/31/2025 urina lysis , dipst ick Urobilinogen normal Not Available [facility] hern[facility] [address], [place], [address], 03/31/2025 09:23:13 03/31/20 25 03/31/2025 urina lysis , dipst ick Protein trace Not Available [facility] [address], [place], [address], 03/31/2025 09:23:13 03/31/20 25 03/31/2025 urina lysis , dipst ick pH 5 Not Available [facility] [address], [place], [address], 03/31/2025 09:23:13 03/31/20 25 03/31/2025 urina lysis , dipst ick Specific [place] 1.020 Not Available [facility] [address], [place], [address], 03/31/2025 09:23:13 03/31/20 25 03/31/2025 urina lysis , dipst ick Ketone normal Not Available [facility] [address], [place], [address], 03/31/2025 09:23:13 03/31/20 25 03/31/2025 urina lysis , dipst ick Bilirubin normal Not Available [facility] [address], [place], [address], 03/31/2025 09:23:13 03/31/20 25 03/31/2025 urina lysis , dipst ick Glucose normal Not Available [facility] [address], [place], [address], 03/31/2025 09:23:13 03/31/20 25 03/31/2025 urina lysis , dipst ick Appearance normal [facility] Available [facility] [address], [place], [address], 03/31/2025 09:23:13 03/31/20 25 03/31/2025 urina lysis , dipst ick Color normal Not Available [facility] [address], [place], [address], 03/31/2025 09:23:13 04/01/20 25 04/01/2025 [facility] bacterial vaginosis (bv), tma Negati ve negati ve Not Available [facility] (Lab) [address] [place], [address], 04/02/2025 14:08:45 04/01/20 25 04/01/2025 [facility] DENIS mekhi species, tma Negati ve negati ve Not Available [facility] (Lab) [address] [place], [address], 04/02/2025 14:08:45 04/01/20 25 04/01/2025 [facility] DENIS mekhi glabrata, tma Negati ve negati ve Not Available [facility] (Lab) [address] [place], [address], 04/02/2025 14:08:45 04/01/20 25 04/01/2025 [facility] DENIS trichomonas vaginalis, tma Negati ve negati ve Not Available [facility] (Lab) [address] [place], [address], 04/02/2025 14:08:45 04/01/20 25 04/01/2025 [facility] DENIS chlamydia trachomatis, PCR Negati ve negati ve Not Available [facility] (Lab) [address] [place], [address], 04/02/2025 14:08:45 04/01/20 25 04/01/2025 [facility] DENIS neisseria gonorrhoeae, PCR [...] ded in this panel . Not Available [facility] (Lab) [address], [place], [address], 04/02/2025 14:08:45 04/22/2004/22/2025 CULTU RE: URINE result report SEE RESULT S BELOW Test: Cultu re: Urine Speci men Sourc e: Urine Voide d Speci men Type: Urine Speci men Date: 2024 1314 Resul t Date: 2024 0322 Resul t Statu s: Final resul t Abnor mal: No Resul ting Lab: [facility] [address] [facility] [address] Tel: CULTU RE ----- ----- ----- --- No growt h in 1 day (dete ction level of 10,00 0 colon ies / ml.) Not Available [facility] (Lab) [address], [place], [address], 04/24/2025 04:28:01 04/22/2004/22/2025 urina lysis , dipst ick Leukocytes + Not Available [address], [place], [address], 04/22/2025 10:01:51 04/22/2004/22/2025 urina lysis , dipst ick Protein + Not Available [facility] [address], [place], [address], 04/22/2025 10:01:51 04/22/20 25 04/22/2025 urina lysis , dipst ick pH 8 Not Available [facility] [address], [place], [address], 04/22/2025 10:01:51 04/22/20 25 04/22/2025 urina lysis , dipst ick Blood + Not Available [place] [address], [place], [address], 04/22/2025 10:01:51 04/22/20 25 04/22/2025 urina lysis , dipst ick Specific [place] 1.010 Not Available [facility] [address], [place], [address], 04/22/2025 10:01:51 04/22/20 25 04/22/2025 urina lysis , dipst ick Ketone + Not Available [facility] [address], [place], [address], 04/22/2025 10:01:51 03/02/20 25 03/02/2025 US, obste tric, nucha l trans lucen cy No observ ation record ed. [email or web address] [facility] [address], [place], [address], 03/02/2025 13:35:30 03/02/20 25 03/02/2025 US, obste tric, nucha l trans lucen cy No observ ation record ed. [email or web address] [address], [place], [address], 03/03/2025 14:08:39 03/08/20 25 03/08/2025 US, obste tric, 1st trime ster No observ ation record ed. [email or web address] [address] [address], [place], [address], 03/08/2025 12:22:22 03/08/2003/08/2025 US, obste tric, 1st trime ster No observ ation record ed. [email or web address] [address], [place], [address], 03/10/2025 15:03:13 04/01/20 25 03/24/2025 qamar r monit or No observ ation record ed. [address] [place] [address], [address], 04/08/2025 12:36:45 04/01/20 25 03/22/2025 qamar r monit or No observ ation record ed. [address] ([facility]) [address] [place] [address] [place] [address], [address], 04/06/2025 08:59:34 04/20/20 25 04/20/2025 US, obste tric, limit ed No observ ation record ed. [email or web address] [place] [address], [place], [address], 04/20/2025 17:39:30 04/20/20 25 04/20/2025 US, obste tric, follo w-up No observ ation record ed. [place] [address] [address], [place], [address], 04/23/2025 08:32:54 04/28/20 25 04/28/2025 US, obste tric, 2nd or 3rd trime ster No observ ation record ed. [email or web address] [place] [address], [place], [address], 04/28/2025 17:48:42 04/28/20 25 04/28/2025 US, obste tric, 2nd or 3rd trime ster No observ ation record ed. [place] [address] [address], [place], [address], 05/04/2025 22:16:11 05/07/2005/07/2025 non-s tress test No observ ation record ed. [address] [facility] [address], [place], [address], 05/14/2025 10:25:29 05/21/2005/21/2025 imagi ng/di agnos tic resul t No observ ation record ed. [facility] [address] [facility] [address], [place], [address], 05/21/2025 11:20:19 Result Notes None recorded. Problems Name Problem SNOMED Code Status Onset Date Resolution Date Notes Provider Name and Address Organization Details Recorded Time Hypereme sis 949416396 Completed phenerga n now prn Asia ramos [facility] 2 16:43:51 Anxiety in pregnanc y 3505427720 9109 Completed will continue to monitor Asia ramos [facility] 2 16:43:51 Past pregnanc y history of gestatio nal diabetes mellitus 916998983 Completed Early 1 hr GTT @ 20wks 11/03 APPT Asia ramos [facility] 2 16:43:51 Spinal muscular atrophy 9046536 Completed Carrier - Not in contact with FOB. Asia ramos [facility] 2 16:43:51 Anxiety 68521716 Completed prozac Karina ramos [facility] 4 11:00:46 Nausea 937954560 Completed d/c zofran pump 11/08 per pt request Karina ramos [facility] 4 11:00:46 Postpart um hemorrha ge 99949468 Completed 2017 with d&c Karina ramos [facility] 4 11:00:46 Normal pregnanc y in multigra jessy 7788008362 22706 Completed 201907/05/2021 Encounte r for supervis ion of other normal pregnanc y, 3rd trimeste r;Record ed Elsewher e: No Locat ion: [facility] S ource: EHR Sonogram Technician yvrose: Laura Collins ce ID: 0001 Gigi lable Time: 10:45:00 AM Karina ramos [facility] 1 10:15:27 Gestatio n period, 37 weeks 96451283 Completed 201907/05/2021 37 weeks gestatio n of pregnanc y;Record ed Elsewher e: No [facility] S ource: EHR Sonogram Technician yvrose: Laura Collins ce ID: 0001 Gigi lable Time: 09:00:00 AM Karina ramos [facility] [address] 10:15:[address] Concept Completed 201907/05/2021 Matern care for abnlt fetl hrt rate or rhym, 3rd tri, unsp;Rec orded Elsewher e: No Locat ion: [facility] S ource: EHR Sonogram Technician yvrose: N Natalyati ce ID: 0001 Gigi lable Time: 08:45:00 AM Karina ramos [facility] 1 10:15:29 Gestatio nal diabetes mellitus 98879074 Completed 201907/05/2021 Gestatio nal diabetes mellitus in pregnanc y, diet controll ed;Recor ded Elsewher e: No Locat ion: [facility] S ource: EHR Sonogram Technician yvrose: Laura Hoangti ce ID: 0001 Gigi lable Time: 11:45:00 AM Karina ramos [facility] 10:15:25 Gestatio n period, 38 weeks 73718415 Completed 201907/05/2021 38 weeks gestatio n of pregnanc y;Record ed Elsewher e: No Locat ion: Jaelyn castillo [facility] S ource: EHR Sonogram Technician yvrose: N Practi ce ID: 0001 Gigi lable Time: 11:30:00 AM Karina Burroughs null, [facility] 10:15:13 Amenorrh ea 24105216 Completed 202007/10/2021 aTmmi Jones null, [facility] 13:08:35 Pregnanc y 75271518 Completed 202003/29/2022 Karina Burroughs null, [facility] 4 11:00:49 Pregnanc y 80189355 Completed 202304/22/2024 Karina Burroughs null, [facility] 4 11:00:49 Headache 45134285 Active 2023 Karina Burroughs null, [facility] 5 16:19:28 Pregnanc y 23650447 Active 2023 Karina Burroughs null, [facility] 5 16:19:28 Uncompli cated moderate persiste nt asthma 568509311 Active 2024 albutero l prn Shawn Bradley MD [address], [place], [address], [place] [facility] 5 13:08:36 Anxiety 08227610 Active 2024 sertrali ne started 03/02/25 changed to prozac 10 on Shawn Bradley MD [address], [place], [address], [place] [facility] 17:05:48 Nausea and vomiting 46185741 Active 2024 Shawn Bradley MD [address], [place], [address], [facility] 13:20:27 Placenta circumva llata 2287833 Active 2024 Wendypreeti Obrien null, [facility] 11:28:16 Frequent headache 629314450 Active 2024 Neurolog y referral faxed 05/03 Ryann ramos, [facility] 16:15:15 Abnormal placenta affectin g manageme nt of mother 95544132 Active 2024 [facility]CI serial growth Ryann Matthew ramos, [facility] 10:46:25 Notes:Order faxed to [facility] access 08/10 for PICC line, and home health already caring for ptHilda Gilbert RN at [phone] Problem Notes None recorded. Procedures Surgical History Date Name Laterality Status Provider Name and Address Organization Details Recorded Time 025 Date of Last Pap Smear completed Karina Burroughs [facility] 01/28/2025 11:19:42 024 Nexplanon Removal completed Shawn Bradley MD [address], [place], [address], [facility] 08/05/2024 15:09:58 024 Control Implant Insertion completed Anju Mcnamara CNM [address], [place], [address], [facility] 05/08/2024 17:59:34 024 cholecystectomy completed Karina Burroughs [facility] 03/31/2025 09:18:57 018 Dilation and Curettage completed Karina Burroughs [facility] 07/05/2021 10:17:50 Imaging Results None recorded. Procedure Notes None recorded. Medical Equipment None Reported. Allergies Allergen ID Allergen Name Allergen Category Reaction Reaction Severity Criticality Documentation Date Start Date Code Code System Note Provider Name and Address Organization Details Recorded Time 99138 terbutali ne medicatio n anaphylax is Not available Not available 01/27/20252021 35154 RxNorm Karina Burroughs [facility] 16:19:27 Medications Name Sig Start [...] MOUTH EVERY 12 HOURS FOR 10 DAYS 09/08 /2021 completed Not Available Not Available Not Available [...] Elsewher e: Yes [facility] odify By: prabhjot Lee r DateTime : [...] n (supplie d by office) insert lot [id number] Exp 01/2026 Not Available Not Available Not Available 28 mg iron-800 mcg tablet 07/05 completed Prescrib ed Elsewher e: Yes Loca tion: Jaelyn [facility] odify By: prabhjot Katbinta r DateTime : 01/14/20 10:45:00 AM Not Available Not Available Not Available lidocaine 5 % topical ointment APPLY OINTMENT EXTERNAL LY TO RIBS THREE TIMES DAILY NEEDED 01/14 completed Not Available Not Available Not Available [employer] A 28 mg iron-1 mg-200 mg capsule [...] Updated DateTime 03/31/2025 162.56 cm 27.8 kg/m2 32798.96 g 123/78 mm[Hg] Karina Burroughs [facility] 03/31/2025 09:16:47 Date Recorded Body weight Systolic And Diastolic Provider Name and Address Organization Details Last Updated DateTime 04/22/2025 43052.70136 g 114/73 mm[Hg] Melyssa [facility] 04/22/2025 10:00:25 Date Recorded Body weight Systolic And Diastolic Provider Name and Address Organization Details Last Updated DateTime 04/28/2025 89870.92593 g 110/72 mm[Hg] Melyssa [facility] 04/28/2025 15:05:40 Social History Question Answer Notes LastModified by Organizat ion Details LastModified Time Tobacco Smoking Status Former Smoker Karina Burroughs [facility] 07/05/2021 09:06:21 If You Are , What Was Your Level Of Alcohol Consumption Prior To ? Occasional [email or web address] Information not available 03/31/2025 Are You Blind Or Do You Have Difficulty Seeing? No [email or web address] Information not available 07/05/2021 What Is Your Level Of Caffeine Consumption? Heavy Information not available 07/05/2021 In The 14 Days Before Symptom Onset, Have You Had Close Contact With A Laboratory-confir med COVID-19 While That Case Was Ill? No [email or web address] Information not available 07/05/2021 In The 14 Days Before Symptom Onset, Have You Had Close Contact With A Person Who Is Under Investigation For COVID-19 While That Person Was Ill? No [email or web address] Information not available 07/05/2021 Have You Been To An Area Known To Be High Risk For COVID-19? No [email or web address] Information not available 07/05/2021 Are You Deaf Or Do You Have Serious Difficulty Hearing? No [email or web address] Information not available 07/05/2021 What Type Of Diet Are You Following? REGULAR [email or web address] Information not available 07/05/2021 Which Illicit Or Recreational Drugs Have You Used? Marijuana [email or web address] Information not available 07/05/2021 Have You Ever Been Counseled For Unhealthy Alcohol Use? No [email or web address] Information not available 07/05/2021 Do You Use Your Seat Belt Or Car Seat Routinely? Yes [email or web address] Information not available 07/05/2021 Do You Have Smoke And Carbon Monoxide Detectors In Your Home? Yes [email or web address] Information not available 07/05/2021 Do You Use Sunscreen Routinely? Yes [email or web address] Information not available 07/05/2021 Has Tobacco Cessation Counseling Been Provided? No Information not available 07/05/2021 Have You Used IV Drugs? No [email or web address] Information not available 07/05/2021 Do You Have Difficulty Walking Or Climbing Stairs? No [email or web address] Information not available 12/06/2021 Sex: Unknown Functional Status Question Answer Note LastModified by Organizat ion Details LastModified Time Do you use any illicit or recreational drugs? Yes [email or web address] Information not available 07/05/2021 Do you or have you ever used any other forms of tobacco or nicotine? Yes [email or web address] Information not available 07/05/2021 What is your level of alcohol consumption? None Information not available 03/31/2025 Do you or have you ever used smokeless tobacco? Never used smokeless tobacco [email or web address] Information not available 07/05/2021 Are you able to walk? YESWOREST [email or web address] Information not available 07/05/2021 Are you able to care for yourself independently? Yes [email or web address] Information not available 12/06/2021 Do you have difficulty dressing, bathing, grooming, or toileting? No [email or web address] Information not available 12/06/2021 Do you or have you ever used e-cigarettes or vape? Current user of electronic cigarettes [email or web address] Information not available 07/05/2021 What is your exercise level? Occasional [email or web address] Information not available 07/05/2021 Mental Status Question Answer Note LastModified by Organization D etails LastModified Time Do you feel stressed (tense, restless, nervous, or anxious, or unable to sleep at night)? [id number] [email or web address] Information not available 07/05/2021 Family History Relationship Description Onset Age of this Age Resolved Age Notes LastModified by Organization Details LastModified Time Father No current problems or disability [email or web address] Not available 05/2021 09:06:31 Mother No current problems or disability [email or web address] Not available 05/2021 09:06:31 Medical History Condition [...] SNOMED-CT Code Diagnosis ICD10 Code Diagnosis Note 52964 Anju Mcnamara CNM [facility] [address] [address] 07/05/2021 09:58:05 07/05/2021 11:16:35 Pityriasis versicolor 22987475 B36.0 also wash with selsum blue shampoo Vaginitis 40142686 N76.0 Nausea 609548913 R11.0 Contracept ion care management 891929796 Z30.9 [id number] Betsey Joya [facility] [address],[place] [address] 08/02/2021 10:30:44 08/04/2021 10:07:43 Severe hyperemesis gravidarum 322288482 O21.1 Pt has not held anything down for more than 24 hours. Sent to ER for hydration and evaluation . We have discussed dietary precaution s. Recommend very small frequent meals. Avoid greasy, spicy or trigger foods. I do believe she may benefit from home health for fluids and IV antiemetic s. 25935 [facility] [address],[place] [address] 08/08/2021 10:22:11 08/08/2021 13:42:05 Depressive disorder 27366926 F32.A in an emergency mercy info given and kettler reminder, if increased thoughts or plan to hospital for immediate care, pt agrees, continue counseling , will try lexapro once can keep down fluids, se reviewed Gynecologi c examination 89050065 Z01.419 Z11.3 Z11.8 Amenorrhea 53693300 N91. 2 plan NOB and first look Nausea and vomiting 1693 1999 R11.2 unable to leave urine, unable at this time to go to LD, encouraged to go to LD for hydration, working on home health services, [id number] Shawn Bradley MD [facility] [address],[place] [address] 08/08/2021 10:21:08 08/08/2021 10:53:33 Routine care 496706333 Z34.91 Z3A.08 [id number] [facility] [address],[place] [address] 09/13/2021 14:51:52 09/14/2021 13:44:23 test positive 565249822 Z32.01 Routine an tenatal care 011412391 Z34.91 17050 Shawn Bradley MD [facility] [address],[place] [address] 09/13/2021 15:35:32 09/13/2021 16:26:27 screening 744021731 Z36.82 [id number] Betsey Joya [facility] [address],[place] [address] 10/09/2021 12:26:15 10/09/2021 17:39:00 Urinary symptoms 525888596 R39.9 Fatigue 80193695 R53.83 Venereal d isease screening 244658506 Z11.3 00250 Anju Mcnamara [facility] [address],[place] [address] 10/16/2021 11:57:23 10/16/2021 12:48:11 Routine care 562600743 Z34.91 [id number] Anju Mcnamara [facility] [address],[place] [address] 11/03/2021 11:32:21 11/03/2021 13:52:13 Routine care 968270593 Z34.91 [id number] Shawn Bradley MD [facility] [address],[place] [address] 1 11/03/2021 11:31:37 11/03/2021 12:34:34 screening for malformation 354124013 Z36.3 49251 [facility] [address],[place] [address] 12/06/2021 14:46:58 12/06/2021 16:07:59 Routine care 350193960 Z34.91 Iron defic iency anemia 83368740 D50.9 Anxiety 89813504 F41.9 65309 Shawn Bradley MD [facility] [address],[place] [address] 12/06/2021 14:46:10 12/06/2021 15:18:30 condition affecting obstetrical care of mother 626930044 O35.8XX0 Z3A.25 21999 Anju Mcnamara [facility] [address],[place] [address] 12/22/2021 11:04:34 12/22/2021 11:32:13 Routine care 223356475 Z34.91 15990 Shawn Bradley MD [facility] [address],[place] [address] 01/03/2022 14:21:04 01/03/2022 15:48:26 Uterine size for dates discrepancy 600601203 O26.843 Z3A.29 26329 Anju Mcnamara [facility] [address],[place] [address] 01/03/2022 14:21:33 01/03/2022 15:13:41 Routine care 134262593 Z34.91 [id number] [facility] [address],[place] [address] 01/17/2022 16:53:11 01/17/2022 17:24:14 Routine care 151512768 Z34.91 Persistent cough 8907930 02 R05.3 52899 Betsey Joya [facility] [address],[place] [address] 02/06/2022 09:22:49 02/06/2022 09:55:25 Routine care 349953745 Z34.93 [id number] Shawn Bradley MD [facility] [address],[place] [address] 02/13/2022 14:43:16 02/13/2022 15:26:49 Poor growth affecting management 151265847 O36.5930 Z3A.35 77419 [facility] [address],[place] [address] 02/16/2022 15:13:14 02/16/2022 15:58:27 Routine care 424085679 Z34.91 57909 Anju Prescott [facility] [place] [address],[place] [address] 03/02/2022 15:02:03 03/02/2022 15:28:58 Routine care 147162695 Z34.91 [id number] Cassy Vo [facility] [address],[place] [address] 03/27/2022 10:37:37 03/27/2022 11:14:18 Mixed anxiety and depressive disorder 245681837 F41.8 Chest pain 77296466 R07. 9 She has a hx of [...] treatment for anxiety/de pression.Bianca peng has a tow bar driver that will take her to [place] ED (vitals are WNL, no acute distress noted).She has no thoughts of harming herself or others.She will call the office to schedule an appointmen t to be seen after ED evaluation . We discussed at that time can start therapy for depression /anxiety. RTC after cleared by ED Time spent with the patient was 20 minutes [id number] Shawn Bradley MD [facility] [address],[place] [address] 04/16/2022 15:11:58 04/16/2022 17:11:09 Mixed anxiety and depressive disorder 638197849 F41.8 this patient is a 22-year-ol d [...] ce. More than 50% was counseling . [id number] Shawn Bradley MD [facility] [address],[place] [address] 04/16/2022 16:43:28 04/16/2022 17:34:26 Abnormal uterine bleeding 0536241594 9100 N93.9 [id number] BOLA Miller [facility] [address],[place] [address] 06/19/2022 17:24:32 06/19/2022 18:03:44 Abnormal uterine bleeding 9216181521 9100 N93.9 We discussed likely spotting is [...] of plan of care. Pain in pelvis 14656482 R10.2 Contracept ion care management 038854949 Z30.9 Irregular periods 365465 07 N92.6 Venereal d isease screening 762222281 Z11.3 Anxiety 55466424 F41.9 [id number] Shawn Bradley MD [facility] [address],[place] [address] 10/02/2023 13:44:25 10/02/2023 14:07:54 screening 886267527 Z36.82 Z36.87 Z3A.11 [id number] [facility] [address],[place] [address] 10/02/2023 13:46:45 10/02/2023 14:50:25 Amenorrhea 39554526 N91.2 plan NOB and first look NIPT and labs todaywants tubal ligation after delivery Gynecologi c examination 04120409 Z01.419 Z11.3 Z11.8 Nausea and vomiting 1693 2000 R11.2 [id number] Anju Mcnamara CNM [facility] [address],[place] [address] 11/01/2023 11:17:59 11/01/2023 13:01:44 Gestation period, 16 weeks 90078202 Z3A.16 Anxiety 27403767 F41.9 [id number] Shawn Bradley MD [facility] [address],[place] [address] 11/27/2023 14:04:37 11/27/2023 15:16:15 screening for malformation 494607633 Z36.3 Z3A.19 [id number] [facility] [address],[place] [address] 11/27/2023 14:13:33 11/27/2023 15:31:00 Routine care 018539939 Z34.91 [id number] Anju Mcnamara CNM [facility] [address],[place] [address] 12/25/2023 14:51:56 12/25/2023 15:52:45 Routine care 117555205 Z34.91 [id number] Anju Mcnamara CNM [facility] [address],[place] [address] 1 02/14/2024 14:13:14 02/14/2024 16:07:12 Routine care 578070165 Z34.91 [id number] Anju Mcnamara [facility] [address],[place] [address] 03/27/2024 11:47:21 03/27/2024 12:30:07 Routine care 684495276 Z34.91 [id number] Anju Mcnamara [facility] [address],[place] [address] 05/08/2024 14:54:41 05/11/2024 09:00:41 Screening procedure 26203164 Z13.9 Implantati on of subcutaneous contraceptive 927576229 Z30.46 reviewed se risks and benefits, bandage until skin closes, pressure bandage x 24 hourswill schedule bilateral salpingect kateryna with dr. bradley care 33528743 8 Z39.2 continue multivitam in Sterilizat ion requested 287371369 Z30.2 [id number] Shawn Bradley MD [facility] [address],[place] [address] 08/05/2024 13:57:53 08/05/2024 15:11:54 Contraception care management 933262887 Z30.9 Nexplanon removed without complicati ons. She tolerated well. [id number] Shawn Bradley MD [facility] [address],[place] [address] 01/14/2025 11:51:17 01/14/2025 12:53:24 Uncertain viability of 231082668 Z3A.01 [id number] Shawn Bradley MD [facility] [address],[place] [address] 01/14/2025 11:51:38 01/15/2025 09:38:25 Pain in pelvis 96305911 R10.2 25-year-ol d female presents for ER [...] care. She will return in 2 weeks. [id number] Shawn Bradley MD [facility] [address],[facility] [place] [address] 01/27/2025 14:42:15 01/27/2025 15:35:58 Abdominal pain in 669430624 O99.891 Z3A.01 [id number] Shawn Bradley MD [facility] [address],[place] [address] 01/27/2025 14:55:24 01/27/2025 16:41:41 Amenorrhea 27070798 N91.2 Z32.01 this patient is a 25-year-ol [...] begin routine care at her next visit. [id number] Shawn Bradley MD [facility] [address],[place] [address] 02/04/2025 10:09:23 02/04/2025 10:48:21 Headache 51867474 R51.9 Nausea and vomiting 1693 2000 R11.2 [...] to labor and delivery for IV fluids. [id number] Shawn Bradley MD [facility] [address],[place] [address] 03/02/2025 12:17:19 03/02/2025 12:53:50 screening 112354319 Z36.82 Z3A.11 [id number] Shawn Bradley MD [facility] [address],[place] [address] 03/02/2025 12:17:40 03/02/2025 15:40:54 Anxiety 45600057 F41.9 care status 24 0233066 Z34.81 [id number] MD Shun Galarza [address],[place] [address] 03/08/2025 10:47:16 03/08/2025 11:13:32 Complication occurring during 620698459 O99.891 Z3A.13 [id number] Shawn Bradley MD [facility] [address],[place] [address] 03/12/2025 15:59:57 03/13/2025 11:16:32 Urinary symptoms 947446047 R39.9 Anxiety 39838578 F41.9 Headache 68428378 R51.9 G89.29 [id number] Anju Mcnamara [facility] [address],[place] [address] 03/31/2025 08:58:49 03/31/2025 12:05:58 Urinary symptoms 469948430 R39.9 Yeast detected 241456512 B37.9 Nausea 744575087 R11.0 [id number] Shawn Bradley MD [facility] [address],[place] [address] 04/20/2025 16:29:09 04/20/2025 17:09:27 Uncertain viability of 422986479 O36.80X1 Z3A.19 [id number] MD Shun Galarza [address],[place] [address] 04/22/2025 09:24:41 04/26/2025 09:10:43 Acute back pain with sciatica 190283597 M54.40 Migraine w ithout aura, not refractory 065331157 G43.009 care status 24 9228938 Z34.82 [id number] Shawn Bradley MD [facility] [address],[place] [address] 04/28/2025 13:46:05 04/28/2025 15:08:40 Ultrasound scan - obstetric 615317242 Z36.3 Z3A.20 [id number] [facility] [address],[place] [address] 04/28/2025 13:46:26 04/28/2025 15:22:57 Gestation period, 20 weeks 48598960 Z3A.20 Health Concerns Section Related Observation LastModified by Organization Detai ls LastModified Time None Recorded Concern Status LastModified by Organization Details LastModified Time None Recorded Advance Directives Directive None Recorded Payers Insurance Date Sequence Insurance Name Policy Number Policy Roberts Covered Member ID Roberts Member ID Guarantor Name 05/20/2025 1 [facility] (MEDICAID HMO) [id number] Yuni Mejia [id number] Yuni Mejia OBGyn Episode Ob Episode Information Episode Created Date Number of Fetuses Patient Bloodtype Patient rh Status Prepregnancy Weight lbs Domestic Partner Domestic Partner Phone Father Name Car Conditioner Status 03/14/20 20 1 CLOSED Fetus Data [...] Domestic Partner Domestic Partner Phone Father Name Car Conditioner Status 07/05/20 21 1 CLOSED Fetus Data First Name Last Name Admitted to NICU Weight (g) Sex Living Outcome Pediatric Complications Fetus ID Race Codes Race Delivery Type , Spontane ous 29716 Jun Calculation Initial Jun Date Initial Exam [...] Domestic Partner Domestic Partner Phone Father Name Car Conditioner Status 09/13/20 21 1 B Positive 103 diontre silva CLOSED Fetus Data First Name Last Name Admitted to NICU Weight (g) Sex Living Outcome Pediatric Complications Fetus ID Race Codes Race Delivery Type 3316.89 15 F true Full Term terminal meconium 38000 Vaginal Delivery Problems Problem Notes EIF in [place] noted03/05 PIH WNL, UC WNL Problem Name Start Date End Date Resolution Snomed Code Not e Spinal muscular atrophy 9601192 Carrier - Not i n contact with FOB. Past history of gestational diabetes mellitus 687516517 Early 1 hr GTT @ 20wks 11/03 APPT Hyperemesis 247574175 phenerga n now prn Anxiety in 999123355 [address]13 will continue to monitor Jun Calculation Initial [...] Date Ultra Sound Latest Days Gestation 0 [email or web address] 09/14/2021 03/16/20 22 0 Pre- Flowsheet Flowsheet [...] Weight in lbs Pre/Post Dialysis Refused Weight 110.658378974825 BP Diastolic BP Location Tested BP Systolic [...] Weight in lbs Pre/Post Dialysis Refused Weight 119.840595340269 BP Diastolic BP Location Tested BP Systolic [...] Weight in lbs Pre/Post Dialysis Refused Weight 120.976949712947 BP Diastolic BP Location Tested BP Systolic [...] Weight in lbs Pre/Post Dialysis Refused Weight 124.368470692313 BP Diastolic BP Location Tested BP Systolic [...] Weight in lbs Pre/Post Dialysis Refused Weight 137.079107405876 BP Diastolic BP Location Tested BP Systolic [...] Weight in lbs Pre/Post Dialysis Refused Weight 145.1249299654 BP Diastolic BP Location Tested BP Systolic [...] Weight in lbs Pre/Post Dialysis Refused Weight 152.095224688501 BP Diastolic BP Location Tested BP Systolic [...] Weight in lbs Pre/Post Dialysis Refused Weight 150.779529931936 BP Diastolic BP Location Tested BP Systolic [...] Weight in lbs Pre/Post Dialysis Refused Weight 157.496603679376 BP Diastolic BP Location Tested BP Systolic [...] Weight in lbs Pre/Post Dialysis Refused Weight 158.462746095552 BP Diastolic BP Location Tested BP Systolic [...] Weight in lbs Pre/Post Dialysis Refused Weight 163.921312855245 BP Diastolic BP Location Tested BP Systolic [...] Weight in lbs Pre/Post Dialysis Refused Weight 134.020759899300 BP Diastolic BP Location Tested BP Systolic [...] At Estimated Date of Delivery false Thalassemia (Uzbek, Monegasque, Mediterranean, Or Background): MCV < 80 false Neural Tube Defect (Meningom yelocele, Spina Bifida, Or Anencephaly) false Congenital Heart Defect false Down Syndrome false Erick-Sachs (eg, Methodist, Cajun, Estonian-Georgian) f alse Lizzette Disease false Sickle Cell [...] Domestic Partner Domestic Partner Phone Father Name Car Conditioner Status 07/05/20 21 1 CLOSED Fetus Data First Name Last Name Admitted to NICU Weight (g) Sex Living Outcome Pediatric Complications Fetus ID Race Codes Race Delivery Type 3175.14 4 F Full Term 89459 Vaginal Delivery Jun Calculation Initial Jun Date [...] Domestic Partner Domestic Partner Phone Father Name Car Conditioner Status 11/01/19 24 1 B Positive 126 Virgil Daugherty CLOSED Fetus Data First Name Last Name Admitted to NICU Weight (g) Sex Living Outcome Pediatric Complications Fetus ID Race Codes Race Delivery Type 3401.94 M true Full Term 83399 Vaginal Delivery Problems Problem Notes gallbladder attack/pain - re ferral to Gen Surg Dr. Boles sent 11/08- pt never went because pain stopped Problem Name Start Date End Date Resolution Snomed Code Not e Anxiety 16476550 prozac Nausea 932985874 d/c zofran pump 11/08 per pt request hemorrhage 98977251 hx 2017 with d&c Jun Calculation Initial [...] Weight in lbs Pre/Post Dialysis Refused Weight 130.998595188802 BP Diastolic BP Location Tested BP Systolic [...] Weight in lbs Pre/Post Dialysis Refused Weight 136.631281808078 BP Diastolic BP Location Tested BP Systolic [...] Weight in lbs Pre/Post Dialysis Refused Weight 144.298476415662 BP Diastolic BP Location Tested BP Systolic [...] Weight in lbs Pre/Post Dialysis Refused Weight 154.147206141614 BP Diastolic BP Location Tested BP Systolic [...] Weight in lbs Pre/Post Dialysis Refused Weight 157.481851058844 BP Diastolic BP Location Tested BP Systolic [...] Domestic Partner Domestic Partner Phone Father Name Car Conditioner Status 03/02/20 1 B Positive 164 OPEN Fetus Data First Name Last Name Admitted to NICU Weight (g) Sex Living Outcome Pediatric Complications Fetus ID Race Codes Race Delivery Type 98150 Problems Problem Notes GI consult Tachycardia Qamar r monitor 72 order- pt sent back on 03-27-25 Cardiology referral faxed per Dr Martínez office calling pt 04/21 to schedule consult scheduled 05/11 11:15AM Problem Name Start Date End Date Resolution Snomed Code Not e Uncomplicated moderate persistent asthma 03/02/2025 533163420 albuterol prn Abnormal placenta affecting management of mother 05/04/2025 58235525 MCI serial grow th us Nausea and vomiting 03/02/2025 54792215 Anxiety 03/02/2025 33416898 sertralin e started 03/02/25 changed to prozac 10 on Frequent headache 05/03/2025 194120901 N eurology referral faxed 05/03 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/2025 245268 0 Jun Calculation Initial Jun Date Initial [...] Weight in lbs Pre/Post Dialysis Refused Weight 158.661413229241 BP Diastolic BP Location Tested BP Systolic [...] Weight in lbs Pre/Post Dialysis Refused Weight 158.771518736790 BP Diastolic BP Location Tested BP Systolic [...] Weight in lbs Pre/Post Dialysis Refused Weight 162.932158571066 BP Diastolic BP Location Tested BP Systolic BP Type 78 123 Fetus Heart Rate Present A 148 Fetus Movement A Yes Comments Patient is having having ronny n, cramping and vaginal discharge. went to ed exam done cultures and rx sent, ?FM, await auto damage appraiser results rfilled zofran, precautions and education f/u [...] Type Weight in lbs Pre/Post Dialysis Refused 168.170247477719 BP Diastolic BP Location Tested BP Systolic [...] Type Weight in lbs Pre/Post Dialysis Refused 169.934657661992 BP Diastolic BP Location Tested BP Systolic [...]
--- NOTE | 2025-05-25 08:44 | P.TS_ITS ---
Transfer Discharge Sum: Prov Provider Date of admission: 05/21/25 07:51 Primary care physician: BIOMEDICAL EQUIPMENT SUPPORT SPECIALIST PHYSICIAN Admitting clinician: Shawn Bradley MD Consults: dr. bradley DS: Admitting Diagnosis Discharge Date 05/21/25 Admitting Diagnosis Headache Transfer Discharge Sum: Med Medications Active and Home Medications: Home Medications albuterol sulfate 90 mcg/actuation aerosol inhaler (Ventolin HFA) 2 puff inhalation DAILY 02/04/25 [History Confirmed 05/11/25] budesonide-formoterol HFA 80 mcg-4.5 mcg/actuation aerosol inhaler (Symbicort) 2 puff inhalation DAILY 02/04/25 [History Confirmed 05/11/25] Transfer Discharge Sum: Hosp Hospital Course Hospital course: Yuni Mejia is a 25 year old female Patient Condition: Stable Time Spent with Patient Time attestation: Total time spent providing and/or coordinating transfer services:
== END 2025-05-21 13:54 | disposition home or self-care (01) ==
LOC: ANHOBOP 05-24 07:27 → ANHLDR 05-24 07:28
PROVIDERS: Advanced Practice Midwife; Admitting Provider Obstetrics & Gynecology; Visit Provider Obstetrics & Gynecology
DX: O26.892 Other specified pregnancy related conditions, second trimester (principal); R51.9 Headache, unspecified; O99.512 Diseases of the respiratory system complicating pregnancy, second trimester; J45.909 Unspecified asthma, uncomplicated; Z3A.23 23 weeks gestation of pregnancy
CPT/HCPCS: 36415; 59025; 70450; 80053; 84550; 85025; 99199; A9270; G0378; G0379

== ENCOUNTER 2025-07-21 11:52 | Outpatient (RCR) | payer OTHER, SELFPAY | END 2025-10-04 10:08 | disposition home or self-care (01) | LOC: ANHDMC 11:52 | PROVIDERS: Visit Provider Advanced Practice Midwife | DX: O24.419 Gestational diabetes mellitus in pregnancy, unspecified control (principal); Z71.89 Other specified counseling | CPT/HCPCS: G0108 ==

== ENCOUNTER 2025-08-30 19:44 | Observation (INO) | payer OTHER, SELFPAY ==
--- OUTSIDE RECORDS SUMMARY | 2025-08-29 19:07 | XMS_ITS | Encounter Summary ---
Author Organization [facility] Address [address] [place] [address] Care Team Providers Care Hr Business Partner Name Role Phone Steph Hightower MD Unavailable Tanner Paige MD Primary Care Provider Janell Celaya APNP Unavailable Reason for Visit * Reason Comments (Headache) Encounter Details Date Type Department Care Team (Latest Contact Info) Description 08/29/2025 7:07 PM PATTERN DEVELOPER - 08/29/2025 9:39 PM [facility] Hospital Encounter [facility] [address] [facility] [place] [address] Lester Alfaro MD [address] [place] [phone] (Headache) Discharge Disposition: Home or Self Care [...] Recorded Patient Health Questionnaire-2 Score 0 05/13/2024 [facility] - Occupational Stress Questionnaire Answer Date [...] money to get more. Never true 05/13/2024 Humiliation, Afraid, Rape, and Kick questionnair e Answer Date Recorded Within the last year, have y ou been afraid of your partner or ex-partner? No 08/29/2025 Within the last year, have y ou been humiliated or emotionally abused in other ways by your partner or ex-partner? No Within the last year, have y ou been kicked, hit, slapped, or otherwise physically hurt by your partner or ex-partner? No 08/29/2025 Within the last year, have y ou been raped or forced to have any kind of sexual activity by your partner or ex-partner? No 08/29/2025 Social Connection and Isolation Panel Answer Date Recorded In a typical week, how many times do you talk on the phone with family, friends, or neighbors? More than three times a week 08/29/2025 How often do you get togethe r with friends or relatives? More than three times a week 08/29/2025 How often do you attend chur ch or catholic services? 1 to 4 times per year 08/29/2025 Do you belong to any clubs o r organizations such as jew groups, unions, fraternal or athletic groups, or school groups? No 08/29/2025 How often do you attend meet ings of the clubs or organizations you belong to? Never 08/29/2025 Are you , , di vorced, , never , or living with a partner? Never 08/29/2025 AUDIT-C Answer Date Recorded Q1: How often do you have a drink containing alcohol? Never 08/29/2025 Q2: How many drinks containi ng alcohol do you have on a typical day when you are drinking? Patient does not drink Q3: How often do you have si x or more drinks on one occasion? Never 08/29/2025 Overall Financial Resource Strain (CARDIA) Answe r Date Recorded How hard is it for you to pa y for the very basics like food, housing, medical care, and heating? Not hard at all 08/29/2025 [facility] ional [facility] - Occupational Stress Questionnaire Answer Date Recorded Do you feel stress - tense, restless, nervous, or anxious, or unable to sleep at night because your mind is troubled all the time - these days? Very much 08/29/2025 Exercise Vital Sign Answer Date Recorde d On average, how many days pe r week do you engage in moderate to strenuous exercise (like a brisk walk)? 3 days 08/29/2025 On average, how many minutes do you engage in exercise at this level? 30 min 08/29/2025 Hunger Vital Sign Answer Date Recorded Within the past 12 months, y ou worried that your food would run out before you got the money to buy more. Never true 08/29/20 25 Within the past 12 months, t he food you bought just didn't last and you didn't have money to get more. Never true 08/29/2025 PRAPARE - Transportation Answer Date Re corded In the past 12 months, has l ack of transportation kept you from medical appointments or from getting medications? No 11/2024 In the past 12 months, has l ack of transportation kept you from meetings, work, or from getting things needed for daily living? No 08/29/2025 Housing Stability Vital Sign Answer Neil e Recorded In the last 12 months, was t here a time when you were not able to pay the mortgage or rent on time? No 08/29/2025 In the past 12 months, how m any times have you moved where you were living? 1 08/29/2025 At any time in the past 12 m [facility], were you homeless or living in a prison (including now)? No 08/29/2025 [id number] Health Literacy Answer Date Recor ded How often do you need to hav e someone help you when you read instructions, pamphlets, or other written material from your doctor or pharmacy? Never 08/29/2025 [facility] Utilities Answer Date Recorded In the past 12 months has th e electric, gas, oil, or water company threatened to shut off services in your home? No 08/29/2025 Estimated Date of Delivery Comme nts Yes [...] Sign Reading Time Taken Comments Blood Pressure 109/75 08/29/2025 7:14 PM PATTERN DEVELOPER Pulse 97 08/29/2025 7:15 PM PATTERN DEVELOPER Temperature 36.2 C (97.2 F) 08/29/2025 7:15 PM PATTERN DEVELOPER Respiratory Rate 17 08/29/2025 7:30 PM PATTERN DEVELOPER Oxygen Saturation 96% 08/29/2025 8:12 PM PATTERN DEVELOPER Inhaled Oxygen Concentration - - Weight 83 kg (183 lb) 08/29/2025 8:01 PM PATTERN DEVELOPER Height 165.1 cm (5' 5) 08/29/2025 8:01 PM PATTERN DEVELOPER Body Mass Index 30.45 08/29/2025 8:01 PM PATTERN DEVELOPER documented in this encounter Functional Status * AUDIT-C Score Answer Date of Assessment Author Status 0 08/29/2025 7:25 PM PATTERN DEVELOPER Anushka Murphy, RN Active * Question Answer Date of Assessment Author Status Q1: How often do you have a drink containing alcohol? Never 08/29/2025 7:25 PM Anushka Rosenbaum RN Active Q2: How many drinks containing alcohol do you have on a typical day when you are drinking? Patient does not drink 08/29/2025 7:25 PM Anushka Rosenbaum RN Active Q3: How often do you have six or more drinks on one occasion? Never 08/29/2025 7:25 PM Anushka Rosenbaum RN Active * Are you deaf or do you [...] of Assessment Author Status No Risk Indicated 08/18/2025 7:35 PM Christopher Bay RN Active * [place] Suicide Severity Rating Scale (Screener/Recent Self-Report) Question Answer Date of Assessment Author Status 1. Wish to be (Past 1 Month) No 08/18/2025 7:35 PM Sudha Bay RN Ac tive 2. Non-Specific Active Suicidal Thoughts (Past 1 Month) No 08/18/2025 7:35 PM Sudha Bay RN Ac tive 6. Suicidal Behavior (Lifetime) No 08/18/2025 7:35 PM CDT Sudha Han RN Mane chopra documented as of this encounter Mental Status * Because of a physical, mental, or emotional condition, do you have serious difficulty concentrating, remembering, or making decisions? Answer Entry Date Author Status No 05/13/2024 1:23 AM CDT Mariama Murray RN Active documented in this encounter Discharge Instructions * Discharge Instructions* Anushka Murphy RN - 08/29/2025 9:31 PM PATTERN DEVELOPER power and recovery supervisor prescription tomorrow morning 08/30/25 at [facility]. ERN DEVELOPER documented in this encounter Medications at Time of Discharge budesonide-formotero l (SYMBICORT) 80-4.5 MCG/ACT inhaler Inhale 2 puffs into the lungs 2 (two) times daily. calcium carbonate (TUMS) 500 MG chewable tablet Chew 1 tablet (500 mg total) by mouth daily as needed for Heartburn. coenzyme Q-10 (CO Q-10) 100 MG capsule Take 3 capsules (300 mg total) by mouth daily. 05/23/2025 Docusate Sodium 100 MG Tab Take 1 tablet by mouth daily as needed (constipation) . 01/06/2025 famotidine (PEPCID) 20 MG tablet Take 1 tablet (20 mg total) by mouth 2 (two) times daily for 10 days. 20 tablet 08/29/2025 insulin NPH (HUMULIN N) 100 UNIT/ML injection Inject 7 Units into the skin nightly at bedtime. ondansetron (ZOFRAN-ODT) 4 MG disintegrating tablet Take 1 tablet (4 mg total) by mouth every 8 (eight) hours as needed for Nausea. 20 tablet 01/24/2025 documented as of this encounter H&P Notes * Lester Alfaro MD - 08/29/2025 9:10 PM CST [facility] OB Triage Note Librado Sanchez / 2000 Date of Admit: 08/29/2025 Attending: Phil Alfaro Date of Service: 08/29/2025 cc / Reason for Admit: chest pain HPI: 25y/o at 38w1d, presenting to L&D c/o right sided chest pain that started today around 09:00a.m. This was associated w/ a feeling of SOB when up and about (different than her known RAD type symptoms for which she's been on ICS-LABA since even before this ). No fever, but had a headache this morning (which has since cleared on drinking some water here on L&D). The pain is NOT associated nor any different with eating, non-positional, and NOT particularly upon deep inspiration. . . just sort of always sitting there. notable for: 1) GDM - recently started on QHS insulin (I'm presuming Lantus or NPH). Obstetric Hx: x4, 1x early SAB PMHx & SurgHx: Cholecystectomy Meds: PNV, Symbicort, Insulin 7u QHS (I'm presuming Lantus, or possibly NPH) Allergies: Allergies Allergen Reactions Terbutaline Anaphylaxis Amoxil [Amoxicillin] Other (see comment) Irregular heart rate Vitals: afebrile, R 17, Heart Rate 70's (on my aescultation). Pulse ox 96+ at rest AND on ambulation. Gen: NAD, alert, oriented, comfortable in L&D bed. Abd: soft, gravid. Nontender at fundus as well as over left abdomen. - she has mild tenderness in RUQ, but neg Nunn's sign - negative rebound Chest: no pain w/ direct compression over the strenum (eval for costocondritis). Lungs: CTA bilaterally, no wheezes on forced expiration (and no exac' of chest pain on deep inspiration). FHT: Cat 1 tracing is reassuring. By Gallo's, this baby feels transverse (I did NO perform US) LABs - EKG (my read): NSR, some very mild non-specific upsloping ST in anterior leads. No ischemia. - CBC: WBC 8.7, Hb 10.2, plt 217 - CMP: glc 123, otherwise nmL for (LFT's nmL, Alk phos slightly elevated) - UA: trace ketones & trace protein (with few epithelials & bacteria). Otherwise Neg. - Flu, Covid, and RSV all negative. A/P 25y/o at 38w1d here with chest pain & KINNEY 1) Chest Pain - suspect GERD plus physiologic limited diaphragm motion related to / baby position. - EKG helps r/o arrythmia / cardiac source. Clear lungs bilaterally helps r/o pneumonia / RAD / asthma. - reassuring ambulating pulse ox makes PE quite unlikely. - choledocolithiasis (after last year's cholecystectomy) would be possible, but her pain is NOT classic for that. - Improved w/ GI cocktail here on L&D is supportive of my suspicion of GERD, so will send her home w/ Rx Famotidine. 2) FWB- reactive, Category 1 tracing. - note, she is antiicipating IOL at the end of this week, but may need bedside US Mid-this week if still NOT seeming cephalic by Gallo's in clinic. 3) Headache - resolved w/ PO hydration. 4) Dispo- d/c home. Will send Rx Famotidine to take BID thru delivery Lester Alfaro M.D. ERN DEVELOPER documented in this encounter Nursing Notes * Anushka Murphy RN - 08/29/2025 8:50 PM CST Bcady at bedside assessing patient and discussing POC ERN DEVELOPER * Anushka Murphy RN - 08/29/2025 8:45 PM CST Bcady in department ERN DEVELOPER documented in this encounter Plan of Treatment Not on file documented as of this encounter Procedures Procedure Name Priority Date/Time Associated Diagnosis Comments COMPREHENSIVE METABOLIC PANEL STAT 08/29/2025 8:34 PM PATTERN DEVELOPER Headache CBC W/DIFF AUTOMATED STAT 08/29/2025 8:34 PM PATTERN DEVELOPER Headache ECG 12-LEAD STAT 08/29/2025 8:26 PM PATTERN DEVELOPER Headache CORONAVIRUS (COVID-19) ANTIGEN STAT 08/29/2025 8:16 PM PATTERN DEVELOPER Headache INFLUENZA A & B STAT 08/29/2025 8:16 PM PATTERN DEVELOPER Headache RESP SYNCYTIAL VIRUS STAT 08/29/2025 8:16 PM PATTERN DEVELOPER Headache POCT GLUCOSE - DOCKED DEVICE Routine 08/29/2025 8:02 PM PATTERN DEVELOPER HC URINALYSIS AUTO W/MICRO STAT 08/29/2025 7:11 PM PATTERN DEVELOPER Headache NONSTRESS TEST Routine 08/29/2025 7:09 PM PATTERN DEVELOPER Headache documented in this encounter Results * (ABNORMAL) COMPREHENSIVE METABOLIC PANEL (08/29/2025 8:34 PM PATTERN DEVELOPER) SODIUM S/P/B 136 136 - 145 MMOL/L 08/29/2025 8:55 PM PATTERN DEVELOPER [facility] POTASSIUM S/P/B 3.6 3.5 - 5.1 MMOL/L 08/29/2025 8:55 PM PATTERN DEVELOPER [facility] CHLORIDE S/P/B 102 98 - 107 MMOL/L 08/29/2025 8:55 PM [facility] CO2 23.5 21.0 - 32.0 MMOL/L 08/29/2025 8:55 PM PATTERN DEVELOPER [facility] GLUCOSE 123(H) 70 - 99 MG/DL 08/29/2025 8:55 PM [facility] Comment: FASTING GLUCOSE 100 TO 125 MG/DL IS CONSISTENT WITH IMPAIRED FASTING GLUCOSE. FASTING GLUCOSE >125 MG/DL IS CONSISTENT WITH DIABETES. RANDOM GLUCOSE >200 MG/DL WITH HYPERGLYCEMIC SYMPTOMS IS CONSISTENT WITH DIABETES. PER ADA GUIDELINES BUN 10 6 - 24 MG/DL 08/29/2025 8:55 PM PATTERN DEVELOPER [facility] CREATININE S/P/B 0.48(L) 0.55 - 1.02 MG/DL 08/29/2025 8:55 PM [facility] CALCIUM S/P/B 9.3 8.4 - 10.5 MG/DL 08/29/2025 8:55 PM [facility] BILIRUBIN TOTAL S/P/B 0.2 0.2 - 1.0 MG/DL 08/29/2025 8:55 PM [facility] Comment: THIS ASSAY IS NOT RECOMMENDED FOR PATIENTS UNDERGOING TREATMENT WITH ELTROMBOPAG DUE TO THE POTENTIAL FOR FALSELY ELEVATED RESULTS. ALKALINE PHOSPHATASE S/P/B 137(H) 37 - 98 U/L 08/29/2025 8:55 PM [facility] AST 13(L) 15 - 37 U/L 08/29/2025 8:55 PM [facility] ALT 14 14 - 59 U/L 08/29/2025 8:55 PM [facility] TOTAL PROTEIN S/P/B 6.1(L) 6.4 - 8.2 G/DL 08/29/2025 8:55 PM [facility] ALBUMIN S/P/B 2.4(L) 3.4 - 5.0 G/DL 08/29/2025 8:55 PM [facility] ANION GAP 10.5 5.0 - 15.0 MMOL/L 08/29/2025 8:55 PM [facility] OSMOLALITY (CALC) 282 MOSM/KG 025 8:55 PM [facility] Comment:REFERENCE RANGE NOT ESTABLISHED GFR ESTIMATE >90 >89 ML/MIN/1. 73 M2 08/29/2025 8:55 PM [facility] GFR NOTES GFR REFERENCE S: 08/29/2025 8:55 PM [facility] Comment: THE ESTIMATED GFR IS CALCULATED [...] ml/min/1.73 m2 G5,KIDNEY FAILURE: <15 ml/min/1.73 m2 08/29/2025 8:34 PM PATTERN DEVELOPER Lester Alfaro MD LABORATORY Final Result [facility] [address] [place] [address], * (ABNORMAL) CBC W/DIFF AUTOMATED (08/29/2025 8:34 PM PATTERN DEVELOPER) WBC 8.72 4.00 - 10.80 x10'3/uL 08/29/2025 8:39 PM PATTERN DEVELOPER [facility] RBC 3.94(L) 4.10 - 5.40 x10'6/uL 08/29/2025 8:39 PM PATTERN DEVELOPER [facility] HGB 10.2(L) 12.0 - 16.0 G/DL 08/29/2025 8:39 PM [facility] HCT 32.0(L) 36.0 - 47.0 % 08/29/2025 8:39 PM [facility] MCV 81.2 78.0 - 100.0 FL 08/29/2025 8:39 PM [facility] MCH 25.9(L) 27.0 - 31.0 PG 08/29/2025 8:39 PM [facility] MCHC 31.9(L) 33.0 - 36.0 G/DL 08/29/2025 8:39 PM PATTERN DEVELOPER [facility] RDW 14.3 11.5 - 14.5 % 08/29/2025 8:39 PM [facility] PLT 217 150 - 350 x10'3/uL 08/29/2025 8:39 PM [facility] MPV 9.5 7.4 - 10.4 FL 08/29/2025 8:39 PM [facility] CBC COMMENT NORMAL REFERENCE RANGE NOT ESTABLISHED FOR THE PROPORTIONAL LEUKOCYTE DIFFERENTIAL. 08/29/2025 8:39 PM PATTERN DEVELOPER [facility] NEUTROPHILS % 63.2 % 08/29/2025 8:39 PM PATTERN DEVELOPER [facility] LYMPHOCYTES % 21.4 % 08/29/2025 8:39 PM PATTERN DEVELOPER [facility] MONOCYTES % 12.5 % 08/29/2025 8:39 PM PATTERN DEVELOPER [facility] EOSINOPHILS % 1.1 % 08/29/2025 8:39 PM PATTERN DEVELOPER [facility] BASOPHILS % 0.1 % 08/29/2025 8:39 PM PATTERN DEVELOPER [facility] IMMATURE GRANS % 1.7 % 08/29/20 8:39 PM PATTERN DEVELOPER [facility] NRBC % 0.0 % 08/29/2025 8:39 PM PATTERN DEVELOPER [facility] ABS. NEUTROPHILS 5.50 1.60 - 8.30 x10'3/uL 08/29/2025 8:39 PM PATTERN DEVELOPER [facility] ABS. LYMPHOCYTES 1.87 0.80 - 4.70 x10'3/uL 08/29/2025 8:39 PM PATTERN DEVELOPER [facility] ABS. MONOCYTES 1.09 0.00 - 1.50 x10'3/uL 08/29/2025 8:39 PM PATTERN DEVELOPER [facility] ABS. EOSINOPHILS 0.10 0.00 - 0.40 x10'3/uL 08/29/2025 8:39 PM PATTERN DEVELOPER [facility] ABS. BASOPHILS 0.01 0.00 - 0.20 x10'3/uL 08/29/2025 8:39 PM PATTERN DEVELOPER [facility] ABS. IMMATURE GRANULOCYTES 0.15(H) 0.00 - 0.03 x10'3/uL 08/29/2025 8:39 PM PATTERN DEVELOPER [facility] ABS. NUCLEATED RBC'S 0.00 0.00 - 0.01 x10'3/uL 08/29/2025 8:39 PM PATTERN DEVELOPER [facility] 08/29/2025 8:34 PM PATTERN DEVELOPER Lester Alfaro MD LABORATORY Final Result [facility] [place] [address], * ECG 12 lead (08/29/2025 8:26 PM PATTERN DEVELOPER) ECG QT 357 [facility] ECG QTC 402 [facility] 08/29/2025 8:26 PM PATTERN DEVELOPER Narrative [facility] - 08/29/2025 9:48 PM PATTERN DEVELOPER [address] [place] [address] Test Date: 2025-08-29 Pat Name: LIBRADO ROBERTO Department: 3 Room: [facility] Gender: Female [employer] Repairer: : 2000 Requested By: LESTER ALFARO Order Number: [id number] Reading MD: Steph Hightower Measurements Intervals [place] Rate: 76 P: 67 [place]: 132 QRS: 53 QRSD: 83 T: 54 QT: 357 QTc: 402 Interpretive Statements SINUS RHYTHM ERN DEVELOPER Procedure Note Steph Hightower MD - 08/29/[address] [place] [address] Test Date: 2025-08-29 Pat Name: LIBRADO BRIONES Department: 3 Room: [facility] Gender: Female [employer] Repairer: : 2000 Requested By: LESTER ALFARO Order Number: [id number] Reading MD: Steph Hightower Measurements Intervals [place] Rate: 76 P: 67 [place]: 132 QRS: 53 QRSD: 83 T: 54 QT: 357 QTc: 402 Interpretive Statements SINUS RHYTHM ERN DEVELOPER us Lester Alfaro MD ECG ORDERABLES Final Result Performing Organization Address City/[facility]/ZIP Co de Phone Number [facility] [place] * CORONAVIRUS (COVID-19) ANTIGEN (08/29/2025 8:16 PM PATTERN DEVELOPER) CORONAVIRUS ANTIGEN IA NEGATIVE NEGATIVE 08/29/2025 8:55 PM PATTERN DEVELOPER [facility] Comment: NEGATIVE RESULTS DO [...] USE BY AUTHORIZED LABORATORIES. SPECIMEN TYPE NASAL 08/29/2025 8:34 PM PATTERN DEVELOPER [facility] NASAL NASAL STRUCTURE / Unknown 08/29/2025 8:16 PM PATTERN DEVELOPER Lester Alfaro MD MICROBIOLOGY - GENERAL ORDERA BLES Final Result Performing Organization Address City/[facility]/ZIP Co de Phone Number [facility] [address] [place] [address], * RESP SYNCYTIAL VIRUS (08/29/2025 8:16 PM PATTERN DEVELOPER) SPECIMEN TYPE NASOPHARYNGEAL SWAB 08/29/2025 8:21 PM PATTERN DEVELOPER [facility] RSV NEGATIVE NEGATIVE 08/29/2025 8:49 PM PATTERN DEVELOPER [facility] NASOPHARYNGEAL SWAB / Unknown 08/29/2025 8:16 PM PATTERN DEVELOPER Lester Alfaro MD MICROBIOLOGY - GENERAL ORDERA BLES Final Result [facility] [address] [place] [id number], * INFLUENZA A & B (08/29/2025 8:16 PM PATTERN DEVELOPER) SPECIMEN TYPE (INFLUENZA) NASAL 08/29/2025 8:21 PM PATTERN DEVELOPER [facility] INFLUENZA A NEGATIVE NEGATIVE 08/29/2025 8:49 PM PATTERN DEVELOPER [facility] INFLUENZA B NEGATIVE NEGATIVE 08/29/2025 8:49 PM PATTERN DEVELOPER [facility] Comment: A NEGATIVE RESULT DOES NOT EXCLUDE INFLUENZA VIRUS INFECTION. IF INFLUENZA IS CIRCULATING IN YOUR COMMUNITY, A DIAGNOSIS OF INFLUENZA SHOULD BE CONSIDERED BASED ON A PATIENT'S CLINICAL PRESENTATION AND EMPIRIC ANTIVIRAL TREATMENT SHOULD BE CONSIDERED IF INDICATED. NASAL STRUCTURE / Unknown 08/29/2025 8:16 PM PATTERN DEVELOPER Lester Alfaro MD MICROBIOLOGY - GENERAL ORDERA BLES Final Result Performing Organization Address [facility]/ZIP Co de Phone Number [facility] [address] [place] [address], [place] [phone] * (ABNORMAL) POCT glucose (08/29/2025 8:02 PM PATTERN DEVELOPER) GLUCOSE POC 128(H) 70 - 99 MG/DL 08/29/2025 8:04 PM PATTERN DEVELOPER [facility] 08/29/2025 8:02 PM PATTERN DEVELOPER Lester Alfaro MD POCT ORDERABLES - DEVICE Zully l Result Performing Organization Address [facility] Co de Phone Number [facility] [address] [place] [address], [place] [phone] * (ABNORMAL) URINALYSIS (08/29/2025 7:11 PM PATTERN DEVELOPER) COLOR (U) YELLOW 08/29/2025 7:26 PM PATTERN DEVELOPER [facility] TRANSPARENCY CLEAR 08/29/2025 7:26 PM PATTERN DEVELOPER [facility] SPECIFIC GRAVITY (U) 1.030(H) 1.000 - 1.025 08/29/2025 7:26 PM PATTERN DEVELOPER [facility] Comment:EQUAL TO OR GREATER THAN U PH 6.0 5.0 - 8.0 08/29/2025 7:26 PM PATTERN DEVELOPER [facility] LEUKOCYTES (U) NEGATIVE NEGATIVE 08/29/2025 7:26 PM PATTERN DEVELOPER [facility] NITRITES NEGATIVE NEGATIVE 08/29/2025 7:26 PM PATTERN DEVELOPER [facility] PROTEIN RANDOM (U) TRACE(A) NEGATIVE 08/29/2025 7:26 PM PATTERN DEVELOPER [facility] GLUCOSE (U) NEGATIVE NEGATIVE 08/29/2025 7:26 PM PATTERN DEVELOPER [facility] KETONES MG/DL (U) TRACE(A) NEGATIVE 08/29/2025 7:26 PM PATTERN DEVELOPER [facility] UROBILINOGEN 1.0(H) <1.0 EU/DL 08/29/2025 7:26 PM PATTERN DEVELOPER [facility] BILIRUBIN (U) NEGATIVE NEGATIVE 08/29/2025 7:26 PM PATTERN DEVELOPER [facility] BLOOD (U) NEGATIVE NEGATIVE 08/29/2025 7:26 PM PATTERN DEVELOPER [facility] WBC/HPF 0-5 0 - 5 /HPF 08/29/2025 7:26 PM PATTERN DEVELOPER [facility] RBC/HPF 0-5 0 - 5 /HPF 08/29/2025 7:26 PM PATTERN DEVELOPER [facility] EPI/LPF FEW /LPF 08/29/2025 7:26 PM PATTERN DEVELOPER [facility] BACTERIA (U) 2+ /HPF 08/29/2025 7:26 PM PATTERN DEVELOPER [facility] MUCUS PRESENT 08/29/2025 7:26 PM PATTERN DEVELOPER [facility] URINE SPECIMEN OBTAINED BY CLEAN CATCH PROCEDURE / Unknown 08/29/2025 7:11 PM PATTERN DEVELOPER Lester Alfaro MD URINE ORDERABLES Final Result [facility] [address] [place] [address], documented in this encounter Visit Diagnoses Diagnosis Headache- Primary documented in this encounter Administered Medications Inactive Administered Medications - up to 3 most recent administrations Medication Order MAR Action Action Date Dose Rate Site maalox plus-lidocaine viscous ([facility]) 45 mL suspension Oral, Once, 1 dose, On 08/29/25 at 2115 Given 08/29/2025 9:09 PM PATTERN DEVELOPER documented in this encounter Active and Recently Administered Medications Due to Daylight Saving Time, this section may contain times in both CDT and PATTERN DEVELOPER. Scheduled Medication Order 08/27/2025 08/28/2025 08/29/2025 maalox plus-lidocaine viscous ([facility]) 45 mL suspension (COMPLETED) Oral, Once, 1 dose, On 08/29/25 at [id number] (Given - Provid er: Anushka Murphy RN) documented in this encounter Additional Health Concerns Infection Onset Date Last Indicated Resolved Time COVID-19 Rule Out 08/29/2025 08/29/2025 08/29/2025 8:56 PM PATTERN DEVELOPER Respiratory Rule Out 08/29/2025 08/29/2025 025 8:49 PM PATTERN DEVELOPER documented as of this encounter Care Teams Hr Business Partner Relationship Specialty Start Date End Date Tanner Paige MD [address] [facility] [place] [address] PCP - General FAMILY PRACTICE 07/01/24 Steph Hightower MD [address] [place] [address] Consulting Physician CARDIOVASCULAR DISEASE 11/07/22 Janell Celaya APNP [address] [place] [address] NURSE PRACTITIONER 12/01/24 documented as of this encounter
[2025-08-30 21:00] VITALS: BMI 31.7
--- OUTSIDE RECORDS SUMMARY | 2025-08-30 21:31 | XMS_ITS | Clinical Summary ---
Author Organization [employer] Address [address] [address] Care Team Providers Care Boomboat Operator Name Role Phone Unavailable Primary Care Provider Unavailabl e Source Comments [facility] [employer],non-owned Affiliates and Associated Physician Practices is amultiple site organization consisting of ambulatory clinics and hospital sitesin [place], [place], [place] and [place]. This disclosure is being madepursuant to the Care Everywhere program and may not contain all information available regarding this patient. Last updated 18.[employer]mentix Allergies Active Allergy Reactions Criticality Noted Date Comments Amoxicillin Itching 05/21/2025 Terbinafine Anaphylaxis High 05/21/2025 Medications * This document contains information received from the source organization and may not represent a complete record from that organization. * Be aware that medications may not [...] Maximum daily dose: 200mg/24 hours 30 tablet 5 Active riboflavin 400 MG capsule Take 1 (one) capsule by mouth once daily 100 capsule 3 5 Active Coenzyme Q10 (CoQ10) 100 MG Take 300 (three hundred) mg by mouth once daily 30 capsule 4 5 Active Additional Information Patient not taking.Reason: Provider adjusted, Reported on 06/07/2025 magnesium oxide (Mag-Ox) 400 MG tablet Take 1 (one) tablet by mouth once daily 60 tablet 4 5 Active Active Problems Problem Noted Date Diagnosed Date Intractable headache, unspec ified chronicity pattern, unspecified headache type 05/21/2025 Estimated Date of Delivery Comme nts Yes 09/11/2025 Based on Patient Reported Encounters * This document contains information received from the source organization and may not represent a complete record from that organization. Date Type Department Care Team Description 08/30/2025 Patient Outreach [facility] MATERNAL/ EVALUATION UNIT [address] [place] [address] [address]. [address] [place] [address] Anju Flanagan RN Care Management Other (Follow up for SDOH needs. Pt was seen once at [facility] on 06/07/25. Pt has no other follow up appointment at this location. She is receiving care in [place]. Will close this referral. ) 07/19/2025 Orders Only [facility] MATERNAL/ EVALUATION UNIT [facility] [place] [address] Karri Bledsoe MD Needs assistance with community resources 07/19/2025 Patient Outreach [facility] MATERNAL/ EVALUATION UNIT [facility] [place] [address] [place] [address] Drea Romano RN Care Management Other 06/08/2025 Patient Outreach [facility] MATERNAL/ EVALUATION UNIT [facility] [place] [address] [place] [address] Drea Romano RN Care Management Other (Called pt to establish referral services by SDOH team to address identified needs of stress. No answer, voicemail left. MyChart or email not available.) 06/07/2025 9:57 AM CDT - 06/07/2025 11:59 PM CDT Hospital Encounter [facility] MATERNAL/ EVALUATION UNIT [address] [place] [address] Keny Goyal MD Discharge Disposition: Home or Self Care 06/07/2025 9:45 AM CDT - 06/07/2025 9:56 AM CDT Hospital Encounter [facility] MATERNAL/ EVALUATION UNIT [address] [place] [address] Karri Bledsoe MD Discharge Disposition: Home or Self Care 06/07/2025 Travel from Last 3 Months Social History Tobacco Use Types Packs/Day Years Used Date Smoking Tobacco: Never Assessed Overall Financial Resource Strain (CARDIA) Answe r Date Recorded How hard is it for you to pa y for the very basics like food, housing, medical care, and heating? Not hard at all 06/07/2025 [facility] Occupat ional Health - Occupational Stress Questionnaire Answer Date Recorded Do you feel stress - tense, restless, nervous, or anxious, or unable to sleep at night because your mind is troubled all the time - these days? Very much 06/07/2025 Hunger Vital Sign Answer Date Recorded Within the past 12 months, y ou worried that your food would run out before you got the money to buy more. Never true 06/07/20 25 Within the past 12 months, t he food you bought just didn't last and you didn't have money to get more. Never true 06/07/2025 PRAPARE - Transportation Answer Date Re corded In the past 12 months, has l ack of transportation kept you from medical appointments or from getting medications? No 05/28 In the past 12 months, has l ack of transportation kept you from meetings, work, or from getting things needed for daily living? No 06/07/2025 [place] Depression Scale Answer Date Recorded [place] Depression Scale Total 14 06/07/2025 The thought of harming myself has occurred to me . Never 06/07/2025 Housing Stability Vital Sign Answer Neil e Recorded In the last 12 months, was t here a time when you were not able to pay the mortgage or rent on time? No 06/07/2025 In the past 12 months, how m any times have you moved where you were living? 0 06/07/2025 At any time in the past 12 m [facility], were you homeless or living in a [facility]p (including now)? No 06/07/2025 Estimated Date of Delivery Comme nts Yes 09/11/2025 Based on Patient Reported Sex and Gender Information Value Date Recorded Sex Assigned at Female 05/25/2025 10:41 AM CDT Legal Sex Female 1:27 PM GAS TORCH SOLDERER Gender Identity Not on file Sexual Orientation Not on file Last Filed Vital Signs Vital Sign Reading Time Taken Comments Blood Pressure 118/77 06/07/2025 11:45 AM CDT Pulse 93 06/07/2025 11:45 AM CDT Temperature 36.8 C (98.2 F) 05/23/2025 8:35 AM CDT Respiratory Rate 16 06/07/2025 11:45 AM CDT Oxygen Saturation 99% 05/23/2025 8:35 AM CDT Inhaled Oxygen Concentration - - Weight 80.7 kg (178 lb) 06/07/2025 11:45 AM CDT Height 165.1 cm (5' 5) 05/21/2025 2:48 PM CDT Body Mass Index 29.62 05/21/2025 2:48 PM CDT Plan of Treatment Health Maintenance Due Date Last Done Comments HPV VACCINE (1 - 3-dose series) 2014 HEPATITIS C SCREENING 01/03/2017 DTAP/TDAP/TD VACCINES (1 - Tdap) 2018 HEPATITIS B VACCINE (1 of 3 - 19+ 3-dose series) 2018 PNEUMOCOCCAL VACCINE (1 of 2 - PCV) 2018 PAP SMEAR 01/09/2020 DEPRESSION SCREENING 10/28/2024 OB-ONE HOUR GLUCOSE 06/05/2025 OB-TDAP CURRENT 06/12/2025 06/21/2012 COVID-19 VACCINE (1 - 2023-2 5 season) 2025 INFLUENZA VACCINE (#1) 2025 4, 08/18/2010, 08/25/2005 OB-GROUP B STREP SCREEN 08/07/2025 ZOSTER VACCINE (1 of 2) 2049 HIV SCREENING Completed 06/23/2025, 02/19/2025 HIB VACCINE Aged Out No longer eligi ble based on patient's age to complete this topic MENINGOCOCCAL (Group B) VACCINE SHARED DECISION-MAKING Aged Out No longer eligible based on patient's age to complete this topic MENINGOCOCCAL GROUPS A/C/Y/W VACCINE Aged Out No longer eligible b ased on patient's age to complete this topic Respiratory Syncytial Virus (RSV) Vaccine Pt: or over 60 yrs (No Doses Required) Completed Procedures Procedure Name Priority Date/Time Associated Diagnosis Comments CULTURE URINE Routine 06/07/2025 12:52 PM CDT Intractable headache, unspecified chronicity pattern, unspecified headache type URINALYSIS - POCT (IP) BEAKER INTERFACE Routine 06/07/2025 12:09 PM CDT SONOGRAM - COMPLETE Routine 06/07/2025 1 0:32 AM CDT from Last 3 Months Results * CULTURE URINE (06/07/2025 12:52 PM CDT) Culture Urine 10,000-50,000 CFU/mL urogenital pablo TANYA 06/08/2025 7:[address] [facility] MICROBIOLOGY Urine URINE SPECIMEN OBTAINED BY CLEAN CATCH PROCEDURE / Unknown Collection / Unknown 06/07/2025 12:52 PM CDT 06/07/2025 1:53 PM CDT Keny Goyal MD LAB - MICROBIOLOGY ORDERABLES Final Result [facility] MICROBIOLOGY [address] [place] [address], [facility] [phone] * (ABNORMAL) URINALYSIS - POCT (IP) BEAKER INTERFACE (06/07/2025 12:09 PM CDT) Color UA POCT Yellow Straw, Yellow, Dark Yellow, Light Yellow 06/07/2025 12:11 PM CDT [facility] Clarity UA POCT Cloudy(A) Clear 12:11 PM CDT [facility] Specific [place] UA POCT 1.025 1.005 - 1.030 06/07/2025 12:11 PM CDT [facility] pH UA POCT 6.5 5.0 - 8.0 pH 06/07/2025 12:11 PM CDT [facility] Protein UA POCT 1+(A) Negative 12:11 PM CDT [facility] Blood UA POCT Negative Negative 06/07/2025 12:11 PM CDT [facility] Leukocyte UA POCT 1+(A) Negative 06/07/2025 12:11 PM CDT [facility] Nitrite UA POCT Negative Negative 12:11 PM CDT [facility] Glucose UA POCT Negative Negative 12:11 PM CDT [facility] Ketone UA POCT Negative Negative 06/07/2025 12:11 PM CDT [facility] Bilirubin UA POCT Negative Negative 06/07/2025 12:11 PM CDT [facility] Urobilinogen UA POCT 0.2 0.1 - 1.0 EU/dL 06/07/2025 12:11 PM CDT [facility] Urine URINE / Unknown 06/07/2025 1 2:09 PM CDT 06/07/2025 12:11 PM CDT Karri Bledsoe MD LAB - POINT OF CARE ORDERABLES Final Result Performing Organization Address City/State/[facility] Co de Phone Number [facility] [address] [place] [address] * Sonogram - Complete (06/07/2025 10:32 AM CDT) Linked Results Indication ======== anatomy evaluation Marginal PCI and EIF on outside scan Headache complicating Short interval History ====== OB History 6. Para 4 [id number] 1. live 2017. Gest. age 39 w + 0 d. Sex of child: female. Details: Vaginal delivery 2. live 2019. Gest. age 39 w + 0 d. Sex of child: female. Details: Vaginal delivery 3. live 2021. Gest. age 39 w + 0 d. Sex of child: female. Details: Vaginal delivery 4. live 03/2024. Gest. age 39 w + 0 d. Sex of child: male. Details: Vaginal delivery, GDM Lab Tests Test Date Result NIPT Low risk, Female Maternal Assessment Physical Exam Height 168 cm, 5 ft 6 in. Weight 81 kg, 179 lb. Initial weight 81 kg, 179 lb. BMI 28.89 kg/m . Initial BMI 28.89 kg/m . Weight gain 0 kg, 0 lb Method ====== Transabdominal ultrasound. View: Suboptimal view: limited by position ========= Avelar . Number of fetuses: 1 Dating ====== Date Details Gest. age YANETH Stated YANETH 26 w + 2 d 09/11/2025 U/S 06/07/2025 based upon AC, BPD, Femur, HC 27 w + 1 d 09/05/2025 Assigned dating based on stated YANETH, selected on 06/07/2025 26 w + 2 d 09/11/2025 General Evaluation Cardiac activity present. FHR 141 bpm. Presentation: cephalic Placenta: Placental site: left lateral Umbilical cord: Cord vessels: 3 vessel cord. Insertion site: marginal insertion Amniotic fluid: Amount of AF: normal. MVP 7.0 cm Biometry BPD 66.0 mm 26w 4d 51% Hadlock HC 248.3 mm 27w 0d 47% Hadlock Cerebellum tr 29.8 mm 47% [place] AC 233.9 mm 27w 5d 83% Hadlock Femur 51.4 mm 27w 3d 72% Hadlock Humerus 45.0 mm 26w 5d 57% Shira HC / AC 1.06 -/- Hadlock Weight Calculation: EFW 1,083 g 85% Hadlock EFW (lb,oz) 2 lb 6 oz EFW by Hadlock (BFG-WJ-DG-FL) Head / Face / Neck Biometry: CM 3.3 mm <1% Nicolaides Nasal bone 9.8 mm appropriate Growth Overview Exam date GA BPD (mm) HC (mm) AC (mm) FL (mm) HL (mm) EFW (g) 06/07/2025 26w 2d 66 51% 248.3 47% 233.9 83% 51.4 72% 45 57% 1083 85% Anatomy The following structures appear normal: Head / Neck Cranium. Lateral ventricles. Choroid plexus. Midline falx. Cavum septi pellucidi. Cerebellum. Cisterna magna. Thalami. Face Lips. Profile. Nose. Nasal bone. Orbits. Heart / Thorax 4-chamber view. RVOT view. 3-vessel view. 2-ucvhmt-bcpzxer view. Situs. Aortic arch view. Ductal arch view. Great vessels. Right lung. Left lung. Diaphragm. Abdomen Cord insertion. Stomach. Kidneys. Bladder. Bowel. Genitals. Spine Cervical spine. Thoracic spine. Lumbar spine. Sacral spine. Extremities / Skeleton Arms. Right hand. Legs. The following structures could not be adequately visualized: Heart / Thorax LVOT view. Bicaval view. Extremities / Skeleton Left hand. Feet. Maternal Structures Cervix declined transvaginal ultrasound Right Ovary Visualized Left Ovary Visualized Impression ========= Single live intrauterine at 26w2d The size is AGA The amniotic fluid volume is normal The patient declined transvaginal ultrasound Incomplete anatomic survey No major malformations were seen within the limitations of ultrasound Marginal placental cord insert Comment ======== ultrasound alone cannot detect all structural, genetic, or functional , placental, or maternal abnormalities Follow-up ======== Follow up ultrasound in 4 weeks for size and to attempt to complete anatomic survey Assess placental cord insert at next scan Coding ====== Diagnoses O26.892, R51.9: Other specified related conditions, Headache Z36.3: Encounter for screening for malformations Procedures 11860: US Preg Uterus Detailed CallmyName PACS Anatomical Region Laterality Modality Other 06/07/2025 10:3 2 AM CDT Anju Mcnamara FLOORING HELPER-SHIP [facility] ORDERABLES Edited Result - Final from Last 3 Months Insurance [facility] Advance Directives * Full Code (Latest Code Status on File) Date Activated Date Inactivated Comments 05/21/2025 3:16 PM 05/23/2025 3:20 PM
--- OUTSIDE RECORDS SUMMARY | 2025-08-30 21:32 | XMS_ITS | Encounter Summary ---
Author Organization [facility] Address [address] [place] [address] Care Team Providers Care Sql Application Developer Name Role Phone Steph Hightower MD Unavailable Tanner Paige MD Primary Care Provider Janell Celaya APNP Unavailable Encounter Details Date Type Department Care Team (Latest Contact Info) Description 08/29/2025 Travel Social History Tobacco Use Types Packs/Day [...] Recorded Patient Health Questionnaire-2 Score 0 05/13/2024 [facility] - Occupational Stress Questionnaire Answer Date Recorded [...] often do you attend chur ch or tenriism services? 1 to 4 times per year 08/29/2025 Do you belong to any clubs o r organizations such as pentecostalism groups, unions, fraternal or athletic groups, or [...] and heating? Not hard at all 08/29/2025 [facility] - Occupational Stress Questionnaire Answer Date Recorded [...] any time in the past 12 m [facility], were you homeless or living in a correction (including now)? No 08/29/2025 B1300 Health Literacy Answer Date Recor ded How often do you need to hav e someone help you when you read instructions, pamphlets, or other written material from your doctor or pharmacy? Never 08/29/2025 [facility] Utilities Answer Date Recorded In the past [...] as of this encounter Functional Status * AUDIT-C Score Answer Date of Assessment Author Status 0 08/29/2025 7:25 PM Anushka Rosenbaum RN Active * Question Answer Date of [...] 1:23 AM Mariama Ferris RN Active documented as of this encounter [...] Rule Out 08/29/2025 08/29/2025 08/29/2025 8:56 PM COAL TRIMMER MACHINE OPERATOR Respiratory Rule Out 08/29/2025 08/29/2025 025 8:49 PM COAL TRIMMER MACHINE OPERATOR documented as of this encounter Care Teams Sql Application Developer Relationship Specialty Start Date End Date Tanner Paige MD [address] [place] [place] [phone] PCP - General FAMILY PRACTICE 07/01/24 Steph Hightower MD [address] [place] [address] Consulting Physician CARDIOVASCULAR DISEASE 11/07/22 Janell Celaya APNP [address] [place] [address] NURSE PRACTITIONER 12/01/24 documented as of this encounter
--- OUTSIDE RECORDS SUMMARY | 2025-08-30 21:32 | XMS_ITS | Encounter Summary ---
Author Organization [facility] Address [address] [place] [address] Care Team Providers Care Director Of Mechanical Engineering Name Role Phone Kera Flanagan NP Primary Care Provider [phone] Tammi Menon APRN Primary Care Provider Encounter Details Date Type Department Care Team (Late st Contact Info) Description 10/25/2023 Orders Only [facility] Home Care Services [address] [place] [address] Carli Whitaker, [facility] [place] [facility] Social History Tobacco Use Types [...] on file Legal Sex Female 11:55 PM HOUSE RN Gender Identity Not on file Sexual Orientation Not on file documented as of this encounter Plan of Treatment Not on file documented as of this encounter Visit Diagnoses Not on filedocumented in this encounter Additional Health Concerns Infection Onset Date Last Indicated Resolved Time COVID: Suspected 12/31/2024 12/31/2024 12/31/2024 3:10 PM HOUSE RN documented as of this encounter Care Teams Director Of Mechanical Engineering Relationship Specialty Start Date End Date Kera Flanagan, [place] PCP - General 05/30/22 12/30/24 Tammi Menon APRN [address] [place] [address] PCP - General Family Medicine 12/31/24 documented as of this encounter
--- OUTSIDE RECORDS SUMMARY | 2025-08-30 21:32 | XMS_ITS | Clinical Summary ---
Author Organization [facility] [address] Address [address] [facility] [address] [place] [address] Phone Care Team Providers Care Principal Administrative Clerk Name Role Phone Unavailable Primary Care Provider Unavailabl e Allergies No known active allergies Medications vits15/iron/fol ic/dss ( VIT 69-HTLE-CXGAD-D SS ORAL) Take by mouth. Activ e [...] 4 hours as needed for Migraine. Active Social History Tobacco Use Types Packs/Day Years Used Date Smoking Tobacco: Never Tobacco Cessation:Counseling Given: Not Answered Alcohol Use Standard Drinks/Week Comments Not Currently 0 (1 standard drink = 0.6 oz pur e alcohol) Feeling Safe Answer Date Recorded Are you in a relationship wi th someone who hurts you emotionally and/or physically? No 04/27/2025 Estimated Date of Delivery Comme nts Yes 10/11/2025 Date entered ashanti or to episode creation Sex and Gender Information Value Date Recorded Sex Assigned at Not on file Legal Sex Female 3:16 PM REGISTRY RN Gender Identity Not on file Sexual [...] Completed 07/29/2000, 04/18/2000, 1999, Additional history exists Insurance [place]
--- OUTSIDE RECORDS SUMMARY | 2025-08-30 21:32 | XMS_ITS | Encounter Summary ---
Author Organization [facility] Address [address] [place] [address] Care Team Providers Care Air Compressor Engineer Name Role Phone Unavailable Primary Care Provider Unavailabl e Reason for Visit * Reason Onset Date Comments Care Management Other 08/30/2025 Follow up for SDOH needs. Pt was seen once at [facility] on 06/07/25. Pt has no other follow up appointment at this location. She is receiving care in [place]. Will close this referral. Encounter Details Date Type Department Care Team (Late st Contact Info) Description 08/30/2025 Patient Outreach [facility] MATERNAL/ EVALUATION UNIT [address] [facility] [facility] [place] [address] Anju Flanagan, RN Care Management Other (Follow up for SDOH needs. Pt was seen once at [facility] on 06/07/25. Pt has no other follow up appointment at this location. She is receiving care in [place]. Will close this referral. ) Social History Tobacco Use Types Packs/Day Years Used Date Smoking Tobacco: Never Assessed Overall Financial Resource Strain (CARDIA) Answe r Date Recorded How hard is it for you to pa y for the very basics like food, housing, medical care, and heating? Not hard at all 06/07/2025 [facility] Occupat ional Health - Occupational Stress [...] things needed for daily living? No 06/07/2025 [place] Depression Scale Answer Date Recorded [place] Depression Scale Total 14 06/07/2025 The thought [...] any time in the past 12 m [facility], were you homeless or living in a alf (including now)? No 06/07/2025 Estimated Date of Delivery Comme nts Yes 09/11/2025 Based on Patient Reported Sex and Gender Information Value Date Recorded Sex Assigned at Female 05/25/2025 10:41 AM CDT Legal Sex Female 1:27 PM MANAGER RELOCATION Gender Identity Not on file Sexual Orientation Not on file documented as of this encounter Functional Status * Is person [...] Rina Dejesus RN documented in this encounter Miscellaneous Notes * Telephone Encounter - Anju Flanagan RN - 08/30/2025 4:03 PM CST Follow up for SDOH needs. Pt was seen once at [facility] on 06/07/25. Pt has no other follow up appointment at this location. She is receiving care in [place]. Will close this referral. GER RELOCATION documented in this encounter Plan of Treatment Not on file documented as of this encounter Visit Diagnoses Not on filedocumented in this encounter
--- OUTSIDE RECORDS SUMMARY | 2025-08-30 21:32 | XMS_ITS | Clinical Summary ---
Author Organization [facility] Address [address] [place] [address] Phone Care Team Providers Care Flavoring Machine Operator Name Role Phone Unavailable Primary Care Provider Unavailabl e Allergies Active Allergy Reactions Criticality Noted Date Comments Terbutaline Anaphylaxis High 05/28/2025 Medications ALBUTEROL SULFATE HFA IN take by inhalation. Active ondansetron (ZOFRAN-ODT) 4 MG TABLET DISPERSIBLE Take 4 mg by mouth every 8 hours as needed. Active potassium chloride SA (KLORCON M) 20 MEQ Tablet Controlled Release Take 20 mEq by mouth daily. Active sertraline (ZOLOFT) 25 MG Tablet Take 25 mg by mouth daily. Active budesonide-formo terol fumarate (SYMBICORT) 80-4.5 MCG/ACT Aerosol take 2 Puffs by inhalation 2 times daily. Active vitamin (SAWMILL MOULDER OPERATOR-PNV-DHA) 28-1-215.8 MG Capsule Take by mouth. Activ e ZOLMitriptan (ZOMIG) 5 MG Tablet Take 5 mg by mouth as needed. Active Social History Tobacco Use Types Packs/Day Years Used Date Smoking Tobacco: Former Cigarettes Smokeless Tobacco: Never Tobacco Cessation:Counseling Given: Not Answered Alcohol Use Standard Drinks/Week Comments Never 0 (1 standard drink = 0.6 oz pur e alcohol) Comments Unknown Sex and Gender Information Value Date Recorded Sex Assigned at Not on file Legal Sex Female 9:17 AM CDT Gender Identity Not on file Sexual Orientation Not on file Plan of Treatment Upcoming Encounters Date Type Department Care Team ([facility] st Contact Info) Description 09/21/2025 1:00 PM MEDICAL STAFF SERVICES COORDINATOR Office Visit [facility] [address] [place] [address] Kaitlin Kelly, CATALYTIC CONVERTER OPERATOR HELPER, INK TECHNICIAN [address] [place] [address] Health Maintenance Due Date Last Done Comments Hepatitis C Virus (HCV) Screening 1999 Human Papillomavirus (HPV) Immunization (2 - 3-dose series) 02/02/2017 01/05/2017 Pap Smear 01/09/2020 Influenza Immunization (#1) 2025 08/31/2014, 1 SARS-COV-2 Immunization ( - season) 2025 Respiratory Syncytial Virus (RSV) Immunization (Adult) (1 - 1-dose 75+ series) 2074 Hepatitis B Immunization Completed 000, 04/18/2000, 1999, Additional history exists TdaP Immunization Completed 06/21/2012 Meningococcal Immunization (ACWY) Completed 01/05/2017, 06/21/2012 Pneumococcal Immunization Combined Aged Out No longer eligible based on patient's age to complete this topic Rotavirus Immunization Aged Out No lo nger eligible based on patient's age to complete this topic Insurance [place]ICAID [place]
--- OUTSIDE RECORDS SUMMARY | 2025-08-30 21:32 | XMS_ITS | Clinical Summary ---
Author Organization [facility] Address [address] [place] [address] Care Team Providers Care Outdoor Illuminating Engineer Name Role Phone Tammi Menon DOREEN [...] have care with Dr. Ortega Denson in [place], [place]. Assessment & Plan (07/04/2019 7:48 PM CDT): - no plans to initiate care [place] - gave Rx for doxylamine/pyridoxine for nausea - encouraged smoking cessation; recommended she d/w Dr. Addison Denson when she establishes care Abdominal pain in 07/04/2019 Overview (07/04/2019): 07/04/2019: presented to [facility], r/o for acute process. Transfer to [facility] for dating confirmation. Reports no BM in [...] on file Legal Sex Female 11:55 PM PILOT SAFETY INSPECTOR Gender Identity Not on file Sexual Orientation [...] Comments Blood Pressure 101/69 12/31/2024 5:25 PM PILOT SAFETY INSPECTOR Pulse 77 12/31/2024 5:25 PM PILOT SAFETY INSPECTOR Temperature 37.1 C (98.7 F) 12/31/2024 2:09 PM PILOT SAFETY INSPECTOR Respiratory Rate 18 12/31/2024 5:25 PM PILOT SAFETY INSPECTOR Oxygen Saturation 100% 12/31/2024 5:25 PM PILOT SAFETY INSPECTOR Inhaled Oxygen Concentration - - Weight 72.7 kg (160 lb 4.4 oz) 12/31/2024 2:09 P M PILOT SAFETY INSPECTOR Height 165.1 cm (5' 5) 12/31/2024 2:09 PM PILOT SAFETY INSPECTOR Body Mass Index 26.67 12/31/2024 2:09 PM PILOT SAFETY INSPECTOR Plan of Treatment Health Maintenance Due Date [...] patient's age to complete this topic Insurance [facility] Care Teams Outdoor Illuminating Engineer Relationship Specialty Start Date End Date Tammi Menon LauraDOREEN [id number] Pediatric Emerg. Dept. [place] [phone] PCP - General Family Medicine 12/31/24
--- OUTSIDE RECORDS SUMMARY | 2025-08-30 21:32 | XMS_ITS | Data Portability ---
Author Organization [facility] Address [address] [place] [address] [place] [address] Care Team Providers Care Manager Military Name Role Phone VIVIAN ESTRADAISSA Primary Care Provider Assessment Encounter Date Assessment Date Assessment LastModified by Organization Details LastModified Time 08/18/2025 08/18/2025 Patient is __36_weeks . Discussed plan. Not available 08/18/2025 11:22:28 08/25/2025 08/25/2025 Patient is _37__weeks . Discussed plan. [email or web address] Not available 08/25/2025 15:51:15 Plan of Treatment Reminders Order Date Submit Date Provider Last Modified By Organization Details Last Modified Time Details Appointments U/S OB BPP 2024 10:00A M RN SCHEDULE Not available Not available Not available NST 2024 10:30A M NST SCHEDULE Not available Not available Not available OB ROUTINE 2024 10:45A M Anju Mcnamara CNM Not available Not available Not available INDUCTION 2024 06:00A Shana Mcnamara CNM Not available Not available Not available SURG Bi Tubal Ligation 2024 07:30A Shana BRADLEY MD Not available Not available Not available SURG POST OP 2024 02:30P Shana BRADLEY MD Not available Not available Not available Lab None recorded. Referral None recorded. Procedures None recorded. Surgeries None recorded. Imaging non-stres s test 2024 025 [address], [address], [place], [address], 08/25/2025 17:20:42 US, obstetric , biophysic al profile + non-stres s test 2024 025 VICTORINA [place], [address], [place], [address], 08/25/2025 18:52:06 US, obstetric , biophysic al profile + non-stres s test 2024 025 [email or web address], [address], [place], [address], 08/18/2025 10:41:20 Medication Orders None recorded. Patient TargetsNo targets recorded. Patient InstructionsNo instructions recorded. Reason for Referral None Reported. Results Created Date Observation Date Name Description Value Unit Range Abnormal Flag Note LastModifiedBy Organization Detail LastModifiedTime 07/21/2007/21/2025 CULTU RE: URINE result report SEE RESULT S BELOW Test: Cultu re: Urine Speci men Sourc e: Urine - Clean Catch Speci men Type: Urine Speci men Date: 2024 1024 Resul t Date: 2024 0252 Resul t Statu s: Final resul t Abnor mal: No Resul ting Lab: [facility] [address] [facility] [address] Tel: CULTU RE ----- ----- ----- --- No growt h in 1 day (dete ction level of 10,00 0 colon ies / ml.) Not Available [facility] (Lab) [address], [place], [address], 07/23/2025 03:57:01 07/21/2007/21/2025 urina lysis , dipst ick Leukocytes ++ Not Available [facility] [address], [place], [address], 07/21/2025 11:03:04 07/21/20 25 07/21/2025 urina lysis , dipst ick Nitrite neg Not Available [place] [address], [place], [address], 07/21/2025 11:03:04 07/21/20 25 07/21/2025 urina lysis , dipst ick Urobilinogen neg Not Available [facility] david [address], [place], [address], 07/21/2025 11:03:04 07/21/20 25 07/21/2025 urina lysis , dipst ick Protein + Not Available [place] [address], [place], [address], 07/21/2025 11:03:04 07/21/20 25 07/21/2025 urina lysis , dipst ick pH 5 Not Available [place] [address], [place], [address], 07/21/2025 11:03:04 07/21/20 25 07/21/2025 urina lysis , dipst ick Specific Buckner 1.030 Not Available [facility] nita [address], [place], [address], 07/21/2025 11:03:04 07/21/20 25 07/21/2025 urina lysis , dipst ick Ketone +++ Not Available [place] [address], [place], [address], 07/21/2025 11:03:04 07/21/20 25 07/21/2025 urina lysis , dipst ick Bilirubin neg Not Available Jaelyn castillo [address], [place], [address], 07/21/2025 11:03:04 07/21/20 25 07/21/2025 urina lysis , dipst ick Glucose neg Not Available [place] [address], [place], [address], 07/21/2025 11:03:04 07/21/20 25 07/21/2025 urina lysis , dipst ick Appearance cloudy Not Available [facility] [address], [place], [address], 07/21/2025 11:03:04 07/21/20 25 07/21/2025 urina lysis , dipst ick Color dark Not Available [place] [address], [place], [address], 07/21/2025 11:03:04 08/04/20 25 08/04/2025 CMP(C OMPRE HENSI VE METAB OLIC PANEL ) sodium 138 mmol/ L 133-[address] [facility] (Lab) [address] [place], [address], 08/05/2025 13:39:18 08/04/20 25 08/04/2025 CMP(C OMPRE HENSI VE METAB OLIC PANEL ) potassium 4.0 mmol/ L 3.5-5. [address] [facility] (Lab) [address] [facility], [place], [address], 08/05/2025 13:39:18 08/04/20 25 08/04/2025 CMP(C OMPRE HENSI VE METAB OLIC PANEL ) chloride 105 mmol/ L 98-[address] [facility] (Lab) [address] [facility], [place], [address], 08/05/2025 13:39:18 08/04/20 25 08/04/2025 CMP(C OMPRE HENSI VE METAB OLIC PANEL ) carbon dioxide 25 mmol/ L 21-[address] [facility] (Lab) [address] [place], [address], 08/05/2025 13:39:18 08/04/20 25 08/04/2025 CMP(C OMPRE HENSI VE METAB OLIC PANEL ) anion gap 8 mmol/ L 4-[address] [facility] (Lab) [address] [facility], [place], [address], 08/05/2025 13:39:18 08/04/20 25 08/04/2025 CMP(C OMPRE HENSI VE METAB OLIC PANEL ) blood urea nitrogen 10 mg/dL 7-25 Not Available [facility] (Lab) [address] [facility], [place], [address], 08/05/2025 13:39:18 08/04/20 25 08/04/2025 CMP(C OMPRE HENSI VE METAB OLIC PANEL ) creatinine 0.41 mg/dL 0.60-1 [address] [facility] (Lab) [address] [facility], [place], [address], 08/05/2025 13:39:18 08/04/20 25 08/04/2025 CMP(C OMPRE HENSI VE METAB OLIC PANEL ) egfrcr (CKD-epi 2020) >90 mL/mi n/1.7 3_m2 >=[address] [facility] (Lab) [address] [facility], [place], [address], 08/05/2025 13:39:18 08/04/20 25 08/04/2025 CMP(C OMPRE HENSI VE METAB OLIC PANEL ) calcium 8.9 mg/dL 8.3-[address] [facility] (Lab) [address] [facility], [place], [address], 08/05/2025 13:39:18 08/04/20 25 08/04/2025 CMP(C OMPRE HENSI VE METAB OLIC PANEL ) glucose 116 mg/dL 70-[address] [facility] (Lab) [address] [facility], [place], [address], 08/05/2025 13:39:18 08/04/20 25 08/04/2025 CMP(C OMPRE HENSI VE METAB OLIC PANEL ) protein, total 6.1 g/dL 6.4-8. [address] [facility] (Lab) [address] [facility], [place], [address], 08/05/2025 13:39:18 08/04/20 25 08/04/2025 CMP(C OMPRE HENSI VE METAB OLIC PANEL ) albumin 3.5 g/dL 3.5-5. [address] [facility] (Lab) [address] [facility], [place], [address], 08/05/2025 13:39:18 08/04/20 25 08/04/2025 CMP(C OMPRE HENSI VE METAB OLIC PANEL ) ALT 11 units /L 9-[address] [facility] (Lab) [address] [facility], [place], [address], 08/05/2025 13:39:18 08/04/20 25 08/04/2025 CMP(C OMPRE HENSI VE METAB OLIC PANEL ) alkaline phosphatase 98 units /L 34-[address] [facility] (Lab) [address] [facility], [place], [address], 08/05/2025 13:39:18 08/04/20 25 08/04/2025 CMP(C OMPRE HENSI VE METAB OLIC PANEL ) AST 15 units /L 13-[address] [facility] (Lab) [address] [facility], [place], [address], 08/05/2025 13:39:18 08/04/20 25 08/04/2025 CMP(C OMPRE HENSI VE METAB OLIC PANEL ) bilirubin, total 0.3 mg/dL 0.2-1. [address] [facility] (Lab) [address] [facility], [place], [address], 08/05/2025 13:39:18 08/04/20 25 08/04/2025 BILE ACIDS , TOTAL bile acids, total 4 umol/ L 0-10 Test Perfo rmed by: [facility] [address] [place] [address] [facility] (Lab) [address], [place], [address], 08/05/2025 13:39:19 08/04/2008/04/2025 US, obste tric, follo w-up No observ ation record ed. [email or web address] [place] [address], [place], [address], 08/04/2025 15:08:50 08/04/2008/04/2025 US, obste tric, follo w-up No observ ation record ed. [email or web address] [address] [address], [place], [address], 08/06/2025 10:41:50 08/11/2008/11/2025 non-s tress test No observ ation record ed. [email or web address] [place] [address], [place], [address], 08/11/2025 17:37:52 08/11/20 non-s tress test No observ ation record ed. [email or web address] [place] [address], [place], [address], 08/11/2025 17:38:11 08/15/2008/15/2025 non-s tress test No observ ation record ed. [address] [facility] [address], [place], [address], 08/21/2025 10:18:57 08/15/2008/15/2025 US, obste tric, bioph ysica l profi le No observ ation record ed. [address] [facility] [address], [place], [address], 08/17/2025 10:50:53 08/18/2008/18/2025 US, obste tric, bioph ysica l profi le + non-s tress test No observ ation record ed. [email or web address] [place] [address], [place], [address], 08/18/2025 10:21:39 08/18/2008/18/2025 US, obste tric, bioph ysica l profi le + non-s tress test No observ ation record ed. [email or web address] [address], [place], [address], 08/18/2025 10:35:44 08/18/2008/18/2025 non-s tress test No observ ation record ed. [email or web address] [place] [address], [place], [address], 08/18/2025 17:34:03 08/18/20 non-s tress test No observ ation record ed. [place] [address], [place], [address], 08/18/2025 16:06:09 08/25/2008/25/2025 US, obste tric, bioph ysica l profi le + non-s tress test No observ ation record ed. [email or web address] [place] [address], [place], [address], 08/25/2025 18:52:06 08/25/2008/25/2025 US, obste tric, follo w-up No observ ation record ed. [email or web address] [address], [place], [address], 08/25/2025 15:47:28 08/25/2008/25/2025 non-s tress test No observ ation record ed. [email or web address] [place] [address], [place], [address], 08/25/2025 18:12:15 08/25/20 25 non-s tress test No observ ation record ed. [place] [address], [place], [address], 08/25/2025 17:21:19 Result Notes None recorded. Problems Name Problem SNOMED Code Status Onset Date Resolution Date Notes Provider Name and Address Organization Details Recorded Time Hypereme sis 645037107 Completed phenerga n now prn Asiaamadeo ramos [facility] 2 16:43:51 Anxiety in pregnanc y [id number] 9109 Completed will continue to monitor Asia Luis ramos [facility] 2 16:43:51 Past pregnanc y history of gestatio nal diabetes mellitus 693856855 Completed Early 1 hr GTT @ 20wks 11/03 APPT Asiaamadeo ramos [facility] 2 16:43:51 Spinal muscular atrophy 6262778 Completed Carrier - Not in contact with FOB. Asia ramos [facility] 2 16:43:51 Anxiety 17086800 Completed prozac Karina ramos [facility] 4 11:00:46 Nausea 400152200 Completed d/c zofran pump 11/08 per pt request Karina ramos [facility] 4 11:00:46 Postpart um hemorrha ge 07370406 Completed 2017 with d&c Karina ramos [facility] 4 11:00:46 Normal pregnanc y in multigra jessy 1072459166 16223 Completed 201907/05/2021 Encounte r for supervis ion of other normal pregnanc y, 3rd trimeste r;Record ed Elsewher e: No Locat ion: Jaelyn castillo [facility] S ource: EHR Skip Pit Worker yvrose: N Natalyati ce ID: [id number] Gigi lable Time: 10:45:00 AM Karina ramos, [facility] 1 10:15:27 Gestatio n period, 37 weeks 88289660 Completed 201907/05/2021 37 weeks gestatio n of pregnanc y;Record ed Elsewher e: No [facility] E[facility] Skip Pit Worker yvrose: N Natalyati ce ID: [id number] Gigi lable Time: 09:00:00 AM Karina ramos, [facility] 10:15:[address] Concept Completed 201907/05/2021 Matern care for abnlt fetl hrt rate or rhym, 3rd tri, unsp;Rec orded Elsewher e: No [facility] our[facility]: EHR Skip Pit Worker yvrose: N Natalyati ce ID: [id number] Gigi lable Time: 08:45:00 AM Karina ramos, [facility] 10:15:29 Gestatio nal diabetes mellitus 32905236 Completed 201907/05/2021 Gestatio nal diabetes mellitus in pregnanc y, diet controll ed;Recor ded Elsewher e: No Locat ion: Jaelyn castillo [facility] S ource: EHR Skip Pit Worker yvrose: N Practi ce ID: [id number] Gigi lable Time: 11:45:00 AM Karina ramos [facility] 10:15:25 Gestatio n period, 38 weeks 90228710 Completed 201907/05/2021 38 weeks gestatio n of pregnanc y;Record ed Elsewher e: No Locat ion: Jaelyn [facility] S ource: EHR Skip Pit Worker yvrose: N Practi ce ID: [id number] Gigi lable Time: 11:30:00 AM Karina ramos [facility] 1 10:15:13 Amenorrh ea 46101507 Completed 202007/10/2021 Tammi Jones null, [facility] 13:08:35 Pregnanc y 81590754 Completed 202003/29/2022 Karina Burroughs null, [facility] 4 11:00:49 Pregnanc y 64273424 Completed 202304/22/2024 Karina Burroughs null, [facility] 4 11:00:49 Headache 56903846 Active 2023 Karina Burroughs null, [facility] 5 16:19:28 Pregnanc y 42513034 Active 2023 Karina Burroughs null, [facility] 5 16:19:28 Uncompli cated moderate persiste nt asthma 064211996 Active 2024 albutero l prn Shawn Bradley MD [address], [place], [address], [facility] 5 13:08:36 Anxiety 67325751 Active 2024 sertrali ne started 03/02/25 changed to prozac 10 on Shawn Bradley MD [address], [place], [address], [facility] 5 17:05:48 Nausea and vomiting 11333758 Active 2024 Shawn Bradley MD [address], [place], [address], [facility] 5 13:20:27 Placenta circumva llata 1305821 Active 2024 32wk [facility] 09:44:35 Frequent headache 149655279 Active 2024 transpor t to [facility] 05/21, discharg e 05/23 [facility] referral faxed 05/24 [facility] pending per KAJAL Pittman [facility]- [facility] unable to see pt due to insuranc e 05/25 [facility] 07/05/25 Level US & Consult (see MF consult zayas recommen dations ) regimen prn Imitrex 50mg for acute migraine , vitamin B2 (Ribofla mesfin) 400mg, Coenzyme q10 300mg and magnesiu m oxide 200 to 600mg daily. minimize use of Excedrin or Tylenol to no more than 2-3 times a week. Ryann ramos [facility] 5 10:55:26 Abnormal placenta affectin g manageme nt of mother 62314362 Active 2024 MCI serial growth us Ryann ramos [facility] 5 10:46:25 Iron deficien cy anemia 54300281 Active 2024 SS [facility] tx venofer 200mg x1 HGB 10.6 Ryann ramos [facility] 5 15:21:25 Gestatio nal diabetes mellitus 61440220 Active 2024 checking bs QID - ruled in GDM Referral faxed to [facility] 07/07 Ryann ramos [facility] 5 14:36:52 Notes:[facility], and home health already caring for pt. Vladimir RDZ at [phone] Problem Notes None recorded. Procedures Surgical History Date Name Laterality Status Provider Name and Address Organization Details Recorded Time 025 Date of Last Pap Smear completed Karina Burroughs [facility] 01/28/2025 11:19:42 024 Nexplanon Removal completed Shawn Bradley MD [address], [place], [address], [facility] 08/05/2024 15:09:58 024 Control Implant Insertion completed Anju Mcnamara CNM [address], [place], [address], [facility] 05/08/2024 17:59:34 024 cholecystectomy completed Karina Burroughs [facility] 03/31/2025 09:18:57 018 Dilation and Curettage completed Karina Burroughs [facility] 07/05/2021 10:17:50 Imaging Results None recorded. Procedure Notes None recorded. Medical Equipment None Reported. Allergies Allergen ID Allergen Name Allergen Category Reaction Reaction Severity Criticality Documentation Date Start Date Code Code System Note Provider Name and Address Organization Details Recorded Time 72679 terbutali ne medicatio n anaphylax is Not available Not available 01/27/20252021 40541 RxNorm Karina Burroughs [facility], [facility] 16:19:27 Medications Name Sig Start Date [...] completed Not Available Not Available Not Available sumatript an 50 mg tablet TAKE 1 TABLET BY MOUTH ONCE DAILY NEEDED (MAY REPEAT ONE TIME FOR MIGRAINE , MAXIMUM DAILY DOSE 200 MG/24 HOURS 06/23 completed Not Available Not Available Not Available [...] Not Available zolmitrip giles 5 mg tablet TAKE 1 TABLET BY MOUTH EVERY 2 HOURS 08/04 completed Not Available Not Available Not Available [...] every 12 hours by oral route for 5 days. 06/23 completed Not Available Not Available Not Available [...] completed Not Available Not Available Not Available magnesium oxide 400 mg (241.3 mg magnesium ) tablet TAKE 1 TABLET BY MOUTH ONCE DAILY active Not Available Not Available No t Available ondansetr on HCl 4 mg/5 mL [...] CAPSULE BY MOUTH THREE TIMES DAILY FOR 5 DAYS 08/25 completed Not Available Not Available Not Available pantopraz ole 40 mg tablet,de layed release TAKE 1 TABLET BY MOUTH DAILY 08/04 completed Not Available Not Available Not Available [...] Available Not Available Not Available prednison e 50 mg tablet TAKE 1 TABLET BY MOUTH ONCE DAILY FOR 5 DAYS 06/23 completed Not Available Not Available Not Available promethaz ine 25 mg tablet TAKE 1 TABLET BY MOUTH EVERY 4 HOURS 03/02 completed Not Available Not Available Not Available ursodiol 300 mg capsule TAKE 1 CAPSULE BY MOUTH TWICE DAILY active Not Available Not Available No t Available Humulin N NPH U-100 Insulin (isophane susp) 100 unit/mL subcutane ous INJECT 3 UNITS SUBCUTAN EOUSLY ONCE DAILY AT BEDTIME active Not Available Not Available No t Available ibuprofen 400 mg tablet TAKE 1 TABLET BY MOUTH EVERY 6 HOURS NEEDED FOR PAIN 01/14 completed Not Available Not Available Not Available fluoxetin e 10 mg capsule TAKE 1 CAPSULE BY MOUTH ONCE DAILY 04/28 completed Not Available Not Available Not Available docusate sodium 100 mg capsule TAKE 1 CAPSULE BY MOUTH TWICE DAILY 08/04 completed Not Available Not Available Not Available sertralin e 25 mg tablet Take 1 tablet every day by oral route as directed . 06/23 completed Not Available Not Available Not Available [...] TABLET IN MOUTH EVERY 6 HOURS NEEDED 08/04 completed Not Available Not Available Not Available [...] completed Not Available Not Available Not Available Microlet Lancet USE TO CHECK BLOOD SUGAR FOUR TIMES DAILY 08/18 completed Not Available Not Available Not Available [...] completed Not Available Not Available Not Available active Not Available Not Avai lable Not Available Symbicort 80 mcg-4.5 mcg/actua tion HFA aerosol inhaler INHALE 2 PUFFS BY MOUTH TWICE DAILY active Not Available Not Available No t Available FeroSul 325 mg (65 mg iron) tablet TAKE 1 TABLET BY MOUTH ONCE DAILY active Not Available Not Available No t Available ferrous sulfate 15 mg iron (75 mg)/mL oral drops 07/05 completed Prescrib ed Elsewher e: Yes Loca tion: [facility] M odify By: prabhjot barrera [...] n (supplie d by office) insert lot [id number] Exp 01/2026 Not Available Not Available Not Available 28 mg iron-800 mcg tablet 07/05 completed Prescrib ed [facility] e: Yes Loca tion: [facility] anna [facility] M odify By: [email or web address] barrera DateTime : 01/14/20 10:45:00 AM Not Available Not Available Not Available lidocaine 5 % topical ointment APPLY OINTMENT EXTERNAL LY TO RIBS THREE TIMES DAILY NEEDED 01/14 completed Not Available Not Available Not Available DEVELOPMENT COORDINATOR-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 06/23 completed Not Available Not Available Not Available TRUEplus Insulin 0.5 mL 31 gauge x 5/16 syringe USE DIRECTED TO INJECT INSULIN active Not Available Not Available No t Available Fioricet 50 mg-300 mg-40 mg capsule [...] MOUTH ONCE DAILY DIRECTED FOR 7 DAYS 06/23 completed Not Available Not Available Not Available Take Action 1.5 mg tablet TAKE 1 TABLET BY MOUTH ONCE DAILY 01/14 completed Not Available Not Available Not Available Zafemy 150 mcg-35 mcg/24 hr transderm al patch Apply 1 patch every week by transder mal route. 01/14 completed Not Available Not Available Not Available Contour Plus Test Strip USE TO CHECK BLOOD SUGAR FOUR TIMES DAILY 08/18 completed Not Available Not Available Not Available Contour Plus Blue Meter USE TO CHECK BLOOD SUGAR FOUR TIMES DAILY 08/18 completed Not Available Not Available Not Available Vitals Date Recorded Body height Body weight Systolic And Diastolic Provider Name and Address Organization Details Last Updated DateTime 08/18/2025 162.56 cm 30897.9960 8 g 116/77 mm[Hg] Melyssa [facility] 08/18/2025 10:57:44 Date Recorded Body height Body weight Systolic And Diastolic Provider Name and Address Organization Details Last Updated DateTime 08/18/2025 162.56 cm 16434.9960 8 g 116/77 mm[Hg] [facility] 08/18/2025 16:03:36 Date Recorded Body weight Systolic And Diastolic Provider Name and Address Organization Details Last Updated DateTime 08/25/2025 97848.17096 g 108/72 mm[Hg] Melyssa [facility] 08/25/2025 15:41:08 Date Recorded Body height Body mass index (BMI) Body weight Systolic And Diastolic Provider Name and Address Organization Details Last Updated DateTime 08/25/2025 162.56 cm 31.6 kg/m2 80261 g 108/72 mm[Hg] Emma [facility] 08/25/2025 17:18:37 Social History Question Answer Notes LastModified by Organizat ion Details LastModified Time Tobacco Smoking Status Former Smoker Karina ramos, [facility] 07/05/2021 09:06:21 If You Are , What Was Your Level Of Alcohol Consumption Prior To ? Occasional [email or web address] Information not available 03/31/2025 Are You Blind Or Do You Have Difficulty Seeing? No [email or web address] Information not available 07/05/2021 What Is Your Level Of Caffeine Consumption? Heavy [email or web address] Information not available 07/05/2021 In The 14 Days Before Symptom Onset, Have You Had Close Contact With A Laboratory-confir med COVID-19 While That Case Was Ill? No Information not available 07/05/2021 In The 14 Days Before Symptom Onset, Have You Had Close Contact With A Person Who Is Under Investigation For COVID-19 While That Person Was Ill? No [email or web address] Information not available 07/05/2021 Have You Been To An Area Known To Be High Risk For COVID-19? No [email or web address] Information not available 07/05/2021 Are You Deaf Or Do You Have Serious Difficulty Hearing? No [email or web address] Information not available 07/05/2021 What Type Of Diet Are You Following? REGULAR Information not available 07/05/2021 Which Illicit Or Recreational Drugs Have You Used? Marijuana [email or web address] Information not available 07/05/2021 Have You Ever Been Counseled For Unhealthy Alcohol Use? No Information not available 07/05/2021 Do You Use Your Seat Belt Or Car Seat Routinely? Yes [email or web address] Information not available 07/05/2021 Do You Have Smoke And Carbon Monoxide Detectors In Your Home? Yes [email or web address] Information not available 07/05/2021 Do You Use Sunscreen Routinely? Yes [email or web address] Information not available 07/05/2021 Has Tobacco Cessation Counseling Been Provided? No [email or web address] Information not available 07/05/2021 Have You Used IV Drugs? No [email or web address] Information not available 07/05/2021 Do You Have Difficulty Walking Or Climbing Stairs? No [email or web address] Information not available 12/06/2021 Sex: Unknown Functional Status Question Answer Note LastModified by Organizat ion Details LastModified Time Do you use any illicit or recreational drugs? Yes Information not available 07/05/2021 Do you or have you ever used any other forms of tobacco or nicotine? Yes [email or web address] Information not available 07/05/2021 What is your level of alcohol consumption? None [email or web address] Information not available 03/31/2025 Do you or have you ever used smokeless tobacco? Never used smokeless tobacco [email or web address] Information not available 07/05/2021 Are you able to walk independently without assistance or assistive devices? YESWOREST [email or web address] Information not available 07/05/2021 Are you able to care for yourself independently? Yes [email or web address] Information not available 12/06/2021 Do you have difficulty dressing, bathing, grooming, or toileting? No [email or web address] Information not available 12/06/2021 Do you or have you ever used e-cigarettes or vape? Current user of electronic cigarettes [email or web address] Information not available 07/05/2021 What is your exercise level? Occasional [email or web address] Information not available 07/05/2021 Mental Status Question Answer Note LastModified by Organization D etails LastModified Time Do you feel stressed (tense, restless, nervous, or anxious, or unable to sleep at night)? [id number] [email or web address] Information not available 07/05/2021 Family History Relationship Description Onset Age of this Age Resolved Age Notes LastModified by Organization Details LastModified Time Father No current problems or disability [email or web address] Not available 05/2021 09:06:31 Mother No current problems or disability [email or web address] Not available 05/2021 09:06:31 Medical History Condition [...] Diagnosis SNOMED-CT Code Diagnosis ICD10 Code Diagnosis IMO Codes Diagnosis Note [id number] An[facility] [address],[place] [address] 07/05/2021 09:58:05 07/05/2021 11:16:35 Pityriasis versicolor 69326496 B36.0 also wash with selsum blue shampoo Vaginitis 35734554 N76.0 Nausea 794563132 R11.0 Contracept ion care management 179302332 Z30.9 [id number] Betsey [facility] [address],[place] [address] 08/02/2021 10:30:44 08/04/2021 10:07:43 Severe hyperemesis gravidarum 081347843 O21.1 Pt has not held anything down for more than 24 hours. Sent to ER for hydration and evaluation . We have discussed dietary precaution s. Recommend very small frequent meals. Avoid greasy, spicy or trigger foods. I do believe she may benefit from home health for fluids and IV antiemetic s. [id number] Anju [facility] [address],[place] [address] 08/08/2021 10:22:11 08/08/2021 13:42:05 Depressive disorder 31914640 F32.A in an emergency mercy info given and kettler reminder, if increased thoughts or plan to hospital for immediate care, pt agrees, continue counseling , will try lexapro once can keep down fluids, se reviewed Gynecologi c examination 96627710 Z01.419 Z11.3 Z11.8 Amenorrhea 86086539 N91. 2 plan NOB and first look Nausea and vomiting 1693 1999 R11.2 unable to leave urine, unable at this time to go to LD, encouraged to go to LD for hydration, working on home health services, [id number] Shawn Bradley MD [facility] [address],[facility] [address] 08/08/2021 10:21:08 08/08/2021 10:53:33 Routine care 427509819 Z34.91 Z3A.08 [id number] Anju Mc[facility] [address],[place] [address] 09/13/2021 14:51:52 09/14/2021 13:44:23 test positive 871086138 Z32.01 Routine an tenatal care 758765084 Z34.91 [id number] Shawn Bradley MD [place] [address],[place] [address] 09/13/2021 15:35:32 09/13/2021 16:26:27 screening 193756117 Z36.82 [id number] Betsey [facility] [address],[place] [address] 10/09/2021 12:26:15 10/09/2021 17:39:00 Urinary symptoms 319160683 R39.9 Fatigue 19156151 R53.83 Venereal d isease screening 118055794 Z11.3 [id number] Anju Mcnam[facility] [address],[place] [address] 10/16/2021 11:57:23 10/16/2021 12:48:11 Routine care 705908708 Z34.91 [id number] Anju Mcnam[facility] [address],[place] [address] 11/03/2021 11:32:21 11/03/2021 13:52:13 Routine care 703818353 Z34.91 [id number] Shawn Bradley MD [facility] [address],[place] [address] 11/03/2021 11:31:37 11/03/2021 12:34:34 screening for malformation 559877067 Z36.3 [id number] Anju Mcnamara [facility] [address],[place] [address] 12/06/2021 14:46:58 12/06/2021 16:07:59 Routine care 538681448 Z34.91 Iron defic iency anemia 83468213 D50.9 Anxiety 85913629 F41.9 [id number] Shawn Bradley MD [facility] [address],[place] [address] 12/06/2021 14:46:10 12/06/2021 15:18:30 condition affecting obstetrical care of mother 330806313 O35.8XX0 Z3A.25 [id number] Anju Mcnam[facility] [address],[place] [address] 12/22/2021 11:04:34 12/22/2021 11:32:13 Routine care 677322106 Z34.91 [id number] Shawn Bradley MD [place] [address],[place] [address] 01/03/2022 14:21:04 01/03/2022 15:48:26 Uterine size for dates discrepancy 290471130 O26.843 Z3A.29 [id number] Anju Mc[facility] [address],[place] [address] 01/03/2022 14:21:33 01/03/2022 15:13:41 Routine care 439314093 Z34.91 [id number] Anju Mcnamara [facility] [address],[place] [address] 01/17/2022 16:53:11 01/17/2022 17:24:14 Routine care 997785021 Z34.91 Persistent cough 7037165 02 R05.3 [id number] Betsey Joya [facility] [address] [place] [address] 02/06/2022 09:22:49 02/06/2022 09:55:25 Routine care 589639410 Z34.93 [id number] Shawn Bradley MD [place] [address] [place] [address] 02/13/2022 14:43:16 02/13/2022 15:26:49 Poor growth affecting management 393354681 O36.5930 Z3A.35 [id number] [facility] [address],[place] [address] 02/16/2022 15:13:14 02/16/2022 15:58:27 Routine care 604627450 Z34.91 [id number] Anju Mcnam[facility] [address],[place] [address] 03/02/2022 15:02:03 03/02/2022 15:28:58 Routine care 338702825 Z34.91 [id number] BOLA Miller [facility] [address],[place] [address] 03/27/2022 10:37:37 03/27/2022 11:14:18 Mixed anxiety and depressive disorder 698245382 F41.8 Chest pain 12731535 R07. 9 She has a hx of [...] treatment for anxiety/de pression.Bianca peng has a courtesy van driver that will take her to [place] ED (vitals are WNL, no acute distress noted).She has no thoughts of harming herself or others.She will call the office to schedule an appointmen t to be seen after ED evaluation . We discussed at that time can start therapy for depression /anxiety. RTC after cleared by ED Time spent with the patient was 20 minutes [id number] Shawn Bradley MD [facility] [address],[place] [address] 04/16/2022 15:11:58 04/16/2022 17:11:09 Mixed anxiety and depressive disorder 899332181 F41.8 this patient is a 22-year-ol d [...] ce. More than 50% was counseling . [id number] Shawn Bradley MD [facility] [address],[place] [address] 04/16/2022 16:43:28 04/16/2022 17:34:26 Abnormal uterine bleeding 0834940872 9100 N93.9 [id number] BOLA Miller [facility] [address] [address] 06/19/2022 17:24:32 06/19/2022 18:03:44 Abnormal uterine bleeding 9859871313 9100 N93.9 We discussed likely spotting is [...] of plan of care. Pain in pelvis 38134717 R10.2 Contracept ion care management 747459173 Z30.9 Irregular periods 581469 07 N92.6 Venereal d isease screening 996282892 Z11.3 Anxiety 59599077 F41.9 [id number] Shawn Bradley MD [facility] [address],[place] [address] 10/02/2023 13:44:25 10/02/2023 14:07:54 screening 325582074 Z36.82 Z36.87 Z3A.11 [id number] [facility] [address],[place] [address] 10/02/2023 13:46:45 10/02/2023 14:50:25 Amenorrhea 41399839 N91.2 plan NOB and first look NIPT and labs todaywants tubal ligation after delivery Gynecologi c examination 24065482 Z01.419 Z11.3 Z11.8 Nausea and vomiting 1693 2000 R11.2 [id number] [facility] [address],[place] [address] 11/01/2023 11:17:59 11/01/2023 13:01:44 Gestation period, 16 weeks 36101043 Z3A.16 Anxiety 03645492 F41.9 [id number] Shawn Bradley MD [place] [address],[place] [address] 11/27/2023 14:04:37 11/27/2023 15:16:15 screening for malformation 312305390 Z36.3 Z3A.19 [id number] [facility] [address] [place] [address] 11/27/2023 14:13:33 11/27/2023 15:31:00 Routine care 493513412 Z34.91 [id number] [facility] [address] [place] [address] 12/25/2023 14:51:56 12/25/2023 15:52:45 Routine care 806094519 Z34.91 [id number] Anju [facility] [address],[place] [address] 02/14/2024 14:13:14 02/14/2024 16:07:12 Routine care 714588315 Z34.91 [id number] Anju [facility] [address],[place] [address] 03/27/2024 11:47:21 03/27/2024 12:30:07 Routine care 230985904 Z34.91 [id number] Anju Mc[facility] [address],[place] [address] 05/08/2024 14:54:41 05/11/2024 09:00:41 Screening procedure 24765256 Z13.9 Implantati on of subcutaneous contraceptive 911636296 Z30.46 reviewed se risks and benefits, bandage until skin closes, pressure bandage x 24 hourswill schedule bilateral salpingect kateryna with dr. bradley care 56584505 8 Z39.2 continue multivitam in Sterilizat ion requested 631010350 Z30.2 [id number] Shawn Bradley MD [facility] [address],[place] [address] 08/05/2024 13:57:53 08/05/2024 15:11:54 Contraception care management 447322040 Z30.9 Nexplanon removed without complicati ons. She tolerated well. [id number] Shawn Bradley MD [facility] [address],[place] [address] 01/14/2025 11:51:17 01/14/2025 12:53:24 Uncertain viability of 816005025 Z3A.01 [id number] Shawn Bradley MD [facility] [address],[place] [address] 01/14/2025 11:51:38 01/15/2025 09:38:25 Pain in pelvis 11168021 R10.2 25-year-ol d female presents for ER [...] care. She will return in 2 weeks. [id number] Shawn Bradley MD [facility] [address] [address] 01/27/2025 14:42:15 01/27/2025 15:35:58 Abdominal pain in 834116567 O99.891 Z3A.01 [id number] MD Shun Galarza [address] [address] 01/27/2025 14:55:24 01/27/2025 16:41:41 Amenorrhea 90523592 N91.2 Z32.01 this patient is a 25-year-ol [...] begin routine care at her next visit. [id number] MD Shun Galarza [address],[place] [address] 02/04/2025 10:09:23 02/04/2025 10:48:21 Headache 20917211 R51.9 Nausea and vomiting 1693 1999 R11.2 [...] to labor and delivery for IV fluids. [id number] Shawn Bradley MD [facility] [address],[place] [address] 03/02/2025 12:17:19 03/02/2025 12:53:50 screening 987659743 Z36.82 Z3A.11 4390235022 [id number] MD Shun Galarza [address],[place] [address] 03/02/2025 12:17:40 03/02/2025 15:40:54 Anxiety 80258171 F41.9 44360 care status 24 1659919 Z34.81 24447939 [id number] MD Shun Galarza [address],[place] [address] 03/08/2025 10:47:16 03/08/2025 11:13:32 Complication occurring during 665432202 O99.891 Z3A.13 4781585162 [id number] Shawn Bradley MD [facility] [address],[place] [address] 03/12/2025 15:59:57 03/13/2025 11:16:32 Urinary symptoms 188973533 R39.9 98204 Anxiety 82917810 F41.9 48329 Headache 42340611 R51.9 G89.29 282424863 [id number] Anju Mc[facility] [address],[place] [address] 03/31/2025 08:58:49 03/31/2025 12:05:58 Urinary symptoms 857142523 R39.9 99163 Yeast detected 738199228 B37.9 0912615729 Nausea 090134132 R11.0 99681 [id number] MD Shun Galarza [address],[place] [address] 04/20/2025 16:29:09 04/20/2025 17:09:27 Uncertain viability of 033940917 O36.80X1 Z3A.19 9582605 [id number] Shawn Bradley MD [place] [address],[place] [address] 04/22/2025 09:24:41 04/26/2025 09:10:43 Acute back pain with sciatica 897857928 M54.40 73585970 Migraine w ithout aura, not refractory 678820485 G43.243 9971843 care status 24 6788535 Z34.82 18666113 [id number] Shawn Bradley MD [facility] [address],[place] [address] 04/28/2025 13:46:05 04/28/2025 15:08:40 Ultrasound scan - obstetric 405564353 Z36.3 Z3A.20 48126 [id number] [facility] [address],[place] [address] 04/28/2025 13:46:26 04/28/2025 15:22:57 Gestation period, 20 weeks 12584605 Z3A.20 7807424 [id number] Shawn Bradley MD [facility] [address],[place] [address] 05/28/2025 13:46:14 05/28/2025 14:40:01 Abnormal placenta affecting management of mother 93595606 O43.192 Z3A.24 08017317 [id number] [facility] [address],[place] [address] 05/28/2025 13:46:33 05/28/2025 15:52:47 Gestation period, 24 weeks 174137509 Z3A.24 5503645 cont pnv [id number] Shawn Bradley MD [facility] [address],[place] [address] 06/23/2025 13:43:13 06/25/2025 17:52:18 [id number] [facility] [address],[place] [address] 06/23/2025 13:43:28 06/23/2025 15:58:03 Heartburn 03665168 R12 52552 Gestation period, 28 weeks 35758923 Z3A.28 1395671 [id number] Shawn Bradley MD [facility] [address],[place] [address] 07/07/2025 10:14:22 07/07/2025 11:00:23 Anomaly of placenta 55338447 O43.103 Z3A.30 1014433 [id number] Anju [facility] [address] [place] [address] 07/07/2025 10:14:33 07/07/2025 11:38:54 Gestation period, 30 weeks 08677110 Z3A.30 4805783 cont pnv Nausea 492120268 R11.0 75194 Gestationa l diabetes mellitus 97761126 O24.419 00146530 [id number] [facility] [address] [place] [address] 07/21/2025 09:28:54 07/21/2025 12:36:06 Pain in pelvis 87388718 R10.2 962833 Gestation period, 32 weeks 4704763 Z3A.32 4786549 [id number] Shawn Bradley MD [place] [address] [place] [address] 08/04/2025 14:02:59 08/04/2025 15:06:33 Gestational diabetes mellitus 33638890 O24.410 O43.103 O43.113 Z3A.34 41995398 [id number] [facility] [address] [place] [address] 08/04/2025 14:21:57 08/04/2025 15:26:03 Gestation period, 34 weeks 86983221 Z3A.34 4874704 Pruritic d isorder of skin 8533957319 L29.9 35446 plan labs today, ursadiol BID [id number] [facility] [address] [place] [address] 08/11/2025 14:51:38 08/11/2025 17:16:44 Gestational diabetes mellitus 55481073 O24.414 31378990 [id number] [facility] [address],[place] [address] 08/11/2025 16:25:59 08/11/2025 17:46:32 Gestational diabetes mellitus 53675181 O24.414 62941185 [id number] Shawn Bradley MD [place] [address],[place] [address] 08/18/2025 09:40:51 08/18/2025 10:15:47 Gestational diabetes mellitus 23138585 O24.414 Z3A.36 33671635 [id number] [facility] [address],[place] [address] 08/18/2025 09:41:06 08/18/2025 11:24:04 Gestation period, 36 weeks 91339596 Z3A.36 3559830 cont pnv [id number] [facility] [address],[place] [address] 08/18/2025 09:41:16 08/18/2025 16:17:31 Gestational diabetes mellitus class A2 86839460 O24.414 54130460 [id number] Shawn Bradley MD [facility] [address],[place] [address] 08/25/2025 14:26:29 08/25/2025 15:14:02 Gestational diabetes mellitus 84737314 O24.414 76329612 [id number] [facility] [address] [place] [address] 08/25/2025 14:26:57 08/25/2025 15:53:52 Gestation period, 37 weeks 35997615 Z3A.37 8097153 continue vitamin [id number] [facility] [address] [place] [address] 08/25/2025 16:48:00 08/25/2025 17:20:42 Gestational diabetes mellitus 79291604 O24.419 73315587 Health Concerns Section Related Observation LastModified by Organization Detai ls LastModified Time None Recorded Concern Status LastModified by Organization Details LastModified Time None Recorded Advance Directives Directive None Recorded Payers Insurance Date Sequence Insurance Name Policy Number Policy Roberts Covered Member ID Roberts Member ID Guarantor Name 08/29/2025 1 [facility] (MEDICAID HMO) [id number] Yuni Mejia [id number] Yuni Mejia Notes Date Note Type Note Provider Name and Address Organization Details Recorded Time 08/18/2025 text/html Generic HPI TemplateReported by Patient Anju Mcnamara CNM [address], [place], [address], [facility] 08/18/2025 11:23:41 08/25/2025 text/html Generic HPI TemplateReported by Patient Anju Mcnamara CNM [address], [place], [address], [facility] 08/25/2025 15:51:24 OBGyn Episode Ob Episode Information Episode Created Date Number of Fetuses Patient Bloodtype Patient rh Status Prepregnancy Weight lbs Domestic Partner Domestic Partner Phone Father Name Ear Nose Throat Physician Status 03/14/20 20 1 CLOSED Fetus Data [...] Domestic Partner Domestic Partner Phone Father Name Ear Nose Throat Physician Status 07/05/20 21 1 CLOSED Fetus Data First Name Last Name Admitted to NICU Weight (g) Sex Living Outcome Pediatric Complications Fetus ID Race Codes Race Delivery Type , Spontane ous 11784 Jun Calculation Initial Jun Date Initial Exam [...] Domestic Partner Domestic Partner Phone Father Name Ear Nose Throat Physician Status 09/13/20 21 1 B Positive 103 diontre silva CLOSED Fetus Data First Name Last Name Admitted to NICU Weight (g) Sex Living Outcome Pediatric Complications Fetus ID Race Codes Race Delivery Type 3316.89 15 F true Full Term terminal meconium 78027 Vaginal Delivery Problems Problem Notes EIF in [place] noted03/05 PIH WNL, UC WNL Problem Name Start Date End Date Resolution Snomed Code Not e Spinal muscular atrophy 0175030 Carrier - Not i n contact with FOB. Past history of gestational diabetes mellitus 316939018 Early 1 hr GTT @ 20wks 11/03 APPT Hyperemesis 414691526 phenerga n now prn Anxiety in 179992317 37768 will continue to monitor Jun Calculation Initial [...] Date Ultra Sound Latest Days Gestation 0 09/14/2021 03/16/20 22 0 Pre-fabiola Flowsheet Flowsheet [...] Weight in lbs Pre/Post Dialysis Refused Weight 110.386981586199 BP Diastolic BP Location Tested BP Systolic [...] Weight in lbs Pre/Post Dialysis Refused Weight 119.850469403176 BP Diastolic BP Location Tested BP Systolic [...] Weight in lbs Pre/Post Dialysis Refused Weight 120.646104035866 BP Diastolic BP Location Tested BP Systolic [...] Weight in lbs Pre/Post Dialysis Refused Weight 124.832366706756 BP Diastolic BP Location Tested BP Systolic [...] Weight in lbs Pre/Post Dialysis Refused Weight 137.201396611267 BP Diastolic BP Location Tested BP Systolic [...] Weight in lbs Pre/Post Dialysis Refused Weight 145.1909712139 BP Diastolic BP Location Tested BP Systolic [...] Weight in lbs Pre/Post Dialysis Refused Weight 152.294434743955 BP Diastolic BP Location Tested BP Systolic [...] Weight in lbs Pre/Post Dialysis Refused Weight 150.542572710100 BP Diastolic BP Location Tested BP Systolic BP Type 64 106 Fetus Heart Rate Present A 155 Fetus Movement A Yes Comments PATIENT STATES THAT HAVING M UCUS DISCHARGE, HIP PAIN, AND SWELLING. had influenza, now cough, productive at times, nasal drip, lungs clear bilaterally, zpack, preautions reviewed, may be viral, pt to monitor, f/u 2 weeks ob Flowsheet Date 02/06/2022 Gbison Score Blood Edema Fundus Height Fundus Units Glucose Ketones Leukocytes Nitrite Labor Signs Protein Cervic Dilation Cervic Effacement Cervic Station none 32 none trace Type Weight in lbs Pre/Post Dialysis Refused Weight 157.655978824805 BP Diastolic BP Location Tested BP Systolic [...] Weight in lbs Pre/Post Dialysis Refused Weight 158.646072823735 BP Diastolic BP Location Tested BP Systolic [...] Weight in lbs Pre/Post Dialysis Refused Weight 163.675769705188 BP Diastolic BP Location Tested BP Systolic [...] Weight in lbs Pre/Post Dialysis Refused Weight 134.205315114220 BP Diastolic BP Location Tested BP Systolic [...] At Estimated Date of Delivery false Thalassemia (Slovak, Korean, Mediterranean, Or Background): MCV < 80 false Neural Tube Defect (Meningom yelocele, Spina Bifida, Or Anencephaly) false Congenital Heart Defect false Down Syndrome false Erick-Sachs (eg, Temple, Cajun, Syriac-[place]) f alse Lizzette Disease false Sickle Cell Disease Or Trait () false Hemophilia Or Other Blood Disorders false Muscular Dystrophy false Cystic Fibrosis false Cobb's Chorea false Intellectual Disability/Autism false If Yes, [...] Domestic Partner Domestic Partner Phone Father Name Ear Nose Throat Physician Status 07/05/20 21 1 CLOSED Fetus Data First Name Last Name Admitted to NICU Weight (g) Sex Living Outcome Pediatric Complications Fetus ID Race Codes Race Delivery Type 3175.14 4 F Full Term 38341 Vaginal Delivery Jun Calculation Initial Jun Date [...] Domestic Partner Domestic Partner Phone Father Name Ear Nose Throat Physician Status 11/01/19 24 1 B Positive 126 Virgil Daugherty CLOSED Fetus Data First Name Last Name Admitted to NICU Weight (g) Sex Living Outcome Pediatric Complications Fetus ID Race Codes Race Delivery Type 3401.94 M true Full Term 60589 Vaginal Delivery Problems Problem Notes gallbladder attack/pain - re ferral to Gen Surg Dr. Boles sent 11/08- pt never went because pain stopped Problem Name Start Date End Date Resolution Snomed Code Not e Anxiety 54748965 prozac Nausea 708786358 d/c zofran pump 11/08 per pt request hemorrhage [id number] hx 2017 with d&c Jun Calculation Initial [...] Weight in lbs Pre/Post Dialysis Refused Weight 130.716242193671 BP Diastolic BP Location Tested BP Systolic [...] Weight in lbs Pre/Post Dialysis Refused Weight 136.413720877575 BP Diastolic BP Location Tested BP Systolic [...] Weight in lbs Pre/Post Dialysis Refused Weight 144.412745270295 BP Diastolic BP Location Tested BP Systolic [...] Weight in lbs Pre/Post Dialysis Refused Weight 154.377752603319 BP Diastolic BP Location Tested BP Systolic [...] Weight in lbs Pre/Post Dialysis Refused Weight 157.321224776052 BP Diastolic BP Location Tested BP Systolic [...] Domestic Partner Domestic Partner Phone Father Name Ear Nose Throat Physician Status 03/02/20 25 1 B Positive 164 OPEN Fetus Data First Name Last Name Admitted to NICU Weight (g) Sex Living Outcome Pediatric Complications Fetus ID Race Codes Race Delivery Type [id number] Problems Problem Notes SDH form completed 5GI consult Tachycardia Holter monitor 72 order- pt sent back on 03-27-25 Cardiology referral faxed per Dr Martínez office calling pt 04/21 to schedule consult scheduled 05/11 11:15AM Problem Name Start Date End Date Resolution Snomed Code Not e Uncomplicated moderate persistent asthma 03/02/2025 698499990 albuterol prn Abnormal placenta affecting management of mother 05/04/2025 [id number] [facility] serial grow us Iron deficiency anemia 05/25/2025 [id number] [facility] tx [place] 200mg x1 HGB 10.6 Nausea and vomiting 03/02/2025 [id number] Anxiety 03/02/2025 [id number] sertralin e started 03/02/25 changed to prozac 10 on Gestational diabetes mellitus 07/08/2025 [id number] checking bs QID - ruled in GDM Referral faxed to [facility] 07/07 Frequent headache 05/03/2025 [id number] [place] [facility] 05/21, discharge 05/23 [facility] referral faxed 05/[address] [facility] Neurology consult pending per KAJAL Pittman [facility] unable to see pt due to insurance 05/25[facility] ST 07/05/25 Level US & Consult (see [facility] consult zayas recommendations ) regimen prn Imitrex 50mg for acute migraine, vitamin B2 (Riboflavin) 400mg, Coenzyme q10 300mg and magnesium oxide 200 to 600mg daily. minimize use of Excedrin or Tylenol to no more than 2-3 times a week. 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/2025 [id number] 32wk growth us Jun Calculation Initial Jun Date Initial Exam [...] Weight in lbs Pre/Post Dialysis Refused Weight 158.665536668276 BP Diastolic BP Location Tested BP Systolic [...] Weight in lbs Pre/Post Dialysis Refused Weight 158.560850571809 BP Diastolic BP Location Tested BP Systolic [...] Weight in lbs Pre/Post Dialysis Refused Weight 162.987305775760 BP Diastolic BP Location Tested BP Systolic BP Type 78 123 Fetus Heart Rate Present A 148 Fetus Movement A Yes Comments Patient is having having ronny n, cramping and vaginal discharge. went to ed exam done cultures and rx sent, ?FM, await site monitor results rfilled zofran, precautions and [...] Type Weight in lbs Pre/Post Dialysis Refused 168.302051030176 BP Diastolic BP Location Tested BP Systolic [...] Type Weight in lbs Pre/Post Dialysis Refused 169.277998839665 BP Diastolic BP Location Tested BP Systolic BP Type 72 L arm 110 sitting Fetus Heart Rate Present Fetus Movement A Yes Comments anxiety increasing buspirone not working, discussed zoloft, to start trying,+FM reviewed anatomy, LVEIF, marginal cord insert f/u 4 weeks, education and precautions. talked to dr bradley about neurologist for migraines will check on appt Flowsheet Date 05/28/2025 Gibson Score Blood Edema Fundus Height Fundus Units Glucose Ketones Leukocytes Nitrite Labor Signs Protein Cervic Dilation Cervic Effacement Cervic Station Type Weight in lbs Pre/Post Dialysis Refused BP Diastolic BP Location Tested BP Systolic BP Type Fetus Heart Rate Present Fetus Movement Comments Flowsheet Date 05/28/2025 Gibson Score Blood Edema Fundus Height Fundus Units Glucose Ketones Leukocytes Nitrite Labor Signs Protein Cervic Dilation Cervic Effacement Cervic Station Type Weight in lbs Pre/Post Dialysis Refused Weight 175.464315169782 BP Diastolic BP Location Tested BP Systolic BP Type 68 L arm 115 sitting Fetus Heart Rate Present Fetus Movement A Yes Comments migraines resolved, +FM seei ng mfm us here reviewed wnl f/u 4 weeks gct Flowsheet Date 06/23/2025 Gibson Score Blood Edema Fundus Height Fundus Units Glucose Ketones Leukocytes Nitrite Labor Signs Protein Cervic Dilation Cervic Effacement Cervic Station Type Weight in lbs Pre/Post Dialysis Refused BP Diastolic BP Location Tested BP Systolic BP Type Fetus Heart Rate Present Fetus Movement Comments Flowsheet Date 06/23/2025 Gibson Score Blood Edema Fundus Height Fundus Units Glucose Ketones Leukocytes Nitrite Labor Signs Protein Cervic Dilation Cervic Effacement Cervic Station Type Weight in lbs Pre/Post Dialysis Refused Weight 182.624249623079 BP Diastolic BP Location Tested BP Systolic BP Type 77 L arm 127 sitting Fetus Heart Rate Present Fetus Movement A Yes Comments migraines resolved, +FM US t linda, reflux bothersome, gct today reviewed precautions education Flowsheet Date 07/07/2025 Gibson Score Blood Edema Fundus Height Fundus Units Glucose Ketones Leukocytes Nitrite Labor Signs Protein Cervic Dilation Cervic Effacement Cervic Station Type Weight in lbs Pre/Post Dialysis Refused BP Diastolic BP Location Tested BP Systolic BP Type Fetus Heart Rate Present Fetus Movement Comments Flowsheet Date 07/07/2025 Gibson Score Blood Edema Fundus Height Fundus Units Glucose Ketones Leukocytes Nitrite Labor Signs Protein Cervic Dilation Cervic Effacement Cervic Station Type Weight in lbs Pre/Post Dialysis Refused Weight 181.153682581406 BP Diastolic BP Location Tested BP Systolic BP Type 73 L arm 131 sitting Fetus Heart Rate Present Fetus Movement A Yes Comments viral URI testied neg at urg ent care, nausea resolved, efw 68%, +FM plan education and precautions f/u 2 weeks diagnosed GDM, plan barrel assembler helper, gave list reviewed protein vs carb Flowsheet Date 07/21/2025 Gibson Score Blood Edema Fundus Height Fundus Units Glucose Ketones Leukocytes Nitrite Labor Signs Protein Cervic Dilation Cervic Effacement Cervic Station Type Weight in lbs Pre/Post Dialysis Refused Weight 181.373678200176 BP Diastolic BP Location Tested BP Systolic BP Type 78 L arm 127 sitting Fetus Heart Rate Present A 150 Fetus Movement A Yes Comments rpt urine culture +FM review ed blood sugars, meets with barrel assembler helper today, precautions and education f/u 2 weeks with growth Flowsheet Date 08/04/2025 Gibson Score Blood Edema Fundus Height Fundus Units Glucose Ketones Leukocytes Nitrite Labor Signs Protein Cervic Dilation Cervic Effacement Cervic Station Type Weight in lbs Pre/Post Dialysis Refused BP Diastolic BP Location Tested BP Systolic BP Type Fetus Heart Rate Present Fetus Movement Comments Flowsheet Date 08/04/2025 Gibson Score Blood Edema Fundus Height Fundus Units Glucose Ketones Leukocytes Nitrite Labor Signs Protein Cervic Dilation Cervic Effacement Cervic Station Type Weight in lbs Pre/Post Dialysis Refused Weight 181.764969414282 BP Diastolic BP Location Tested BP Systolic BP Type 71 L arm 112 sitting Fetus Heart Rate Present Fetus Movement A Yes Comments pruritus check for cholestas is, +FM, reviewed blood sugars, ok meals are elevated, efw 82%, ac 95%, precautions and education Flowsheet Date 08/11/2025 Gibson Score Blood Edema Fundus Height Fundus Units Glucose Ketones Leukocytes Nitrite Labor Signs Protein Cervic Dilation Cervic Effacement Cervic Station Type Weight in lbs Pre/Post Dialysis Refused Weight 183.676251376636 BP Diastolic BP Location Tested BP Systolic BP Type 73 L arm 115 sitting Fetus Heart Rate Present Fetus Movement A Yes Comments +FM, reviewed bs start 3 uni ts insulin at hs, discussed risks including lga, , immature lungs, will start tonight if able, 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 call for preadmit gbs next week iol scheduled, nst R f/u one week Flowsheet Date 08/11/2025 Gibson Score Blood Edema Fundus Height Fundus Units Glucose Ketones Leukocytes Nitrite Labor Signs Protein Cervic Dilation Cervic Effacement Cervic Station Type Weight in lbs Pre/Post Dialysis Refused BP Diastolic BP Location Tested BP Systolic BP Type Fetus Heart Rate Present Fetus Movement Comments Flowsheet Date 08/18/2025 Gibson Score Blood Edema Fundus Height Fundus Units Glucose Ketones Leukocytes Nitrite Labor Signs Protein Cervic Dilation Cervic Effacement Cervic Station Type Weight in lbs Pre/Post Dialysis Refused BP Diastolic BP Location Tested BP Systolic BP Type Fetus Heart Rate Present Fetus Movement Comments Flowsheet Date 08/18/2025 Gibson Score Blood Edema Fundus Height Fundus Units Glucose Ketones Leukocytes Nitrite Labor Signs Protein Cervic Dilation Cervic Effacement Cervic Station Type Weight in lbs Pre/Post Dialysis Refused 184.528724320369 BP Diastolic BP Location Tested BP Systolic BP Type 77 L arm 116 sitting Fetus Heart Rate Present Fetus Movement A Yes Comments increase to 5 units of nph a night, discussed reducing bread increase protein, will have rn call saturday +FM, gbs collected. f/u one week precautions and education Flowsheet Date 08/18/2025 Gibson Score Blood Edema Fundus Height Fundus Units Glucose Ketones Leukocytes Nitrite Labor Signs Protein Cervic Dilation Cervic Effacement Cervic Station Type Weight in lbs Pre/Post Dialysis Refused 184.815615754081 BP Diastolic BP Location Tested BP Systolic BP Type 77 L arm 116 sitting Fetus Heart Rate Present Fetus Movement A Yes Comments Flowsheet Date 08/25/2025 Gibson Score Blood Edema Fundus Height Fundus Units Glucose Ketones Leukocytes Nitrite Labor Signs Protein Cervic Dilation Cervic Effacement Cervic Station Type Weight in lbs Pre/Post Dialysis Refused BP Diastolic BP Location Tested BP Systolic BP Type Fetus Heart Rate Present Fetus Movement Comments Flowsheet Date 08/25/2025 Gibson Score Blood Edema Fundus Height Fundus Units Glucose Ketones Leukocytes Nitrite Labor Signs Protein Cervic Dilation Cervic Effacement Cervic Station Type Weight in lbs Pre/Post Dialysis Refused 184.331280890225 BP Diastolic BP Location Tested BP Systolic BP Type 72 L arm 108 sitting Fetus Heart Rate Present Fetus Movement A Yes Comments +FM now on 7 units insulin, precautions and education bpp 8/8 f/u one week Flowsheet Date 08/25/2025 Gibson Score Blood Edema Fundus Height Fundus Units Glucose Ketones Leukocytes Nitrite Labor Signs Protein Cervic Dilation Cervic Effacement Cervic Station Type Weight in lbs Pre/Post Dialysis Refused Weight 184.269708984572 BP Diastolic BP Location Tested BP Systolic BP Type 72 L arm 108 sitting Fetus Heart Rate Present Fetus Movement [...]
--- NOTE | 2025-08-30 23:00 | OBADM ---
This patient, Yuni Mejia, admitted to the OB room Labor/Delivery/Recovery 105 for observation. Patient/family oriented to hospital policies and general routines including ID bracelet, bed and alarms, visiting hours, pain management, procedures, bathroom and other care routines, personal items, smoking policy, room service/diet, and visiting hours. Patient/Family are encouraged to report perceived risks to care and to ask questions if they do not understand what they are told or what they should do.
--- NOTE | 2025-09-26 19:12 | PM.OBTRLD ---
OB - Triage/Final Diagnosis Visit Information Comments/Additional reasons for admission: I have assessed the risk for this patient, Yuni Mejia, and determined that she would benefit from observation care. Final Diagnosis (1) False labor: Code(s): O47.9 - False labor, unspecified Status: Acute
== END 2025-08-30 21:37 | disposition home or self-care (01) ==
PROVIDERS: Admitting Provider Obstetrics & Gynecology; Visit Provider Obstetrics & Gynecology
DX: O47.1 False labor at or after 37 completed weeks of gestation (principal); Z3A.38 38 weeks gestation of pregnancy
CPT/HCPCS: G0378; G0379

== ENCOUNTER 2025-09-01 08:27 | Outpatient (CLI) | payer OTHER, SELFPAY ==
--- NOTE | ~2025-09-01 | US_ITS ---
EXAMINATION: US OB BPP wo non-stress DATE: 09/01/2025 09:58 INDICATION: Maternal gestational diabetes. Leaking fluids during third trimester . TECHNIQUE: Real-time pelvic ultrasound was performed. The interpreting radiologist was not present for the study. COMPARISON: None. FINDINGS: There is a single living fetus in vertex presentation. The placenta is anterior and not low-lying. heart rate is 139 beats per minute (bpm). Normal amniotic fluid index of 13.5 cm (5th%-95%: 7.3-23.9 cm at 38 weeks estimated gestational age). Biophysical profile performed by the technologist: breathing (30 sec sustained breathing in 30 minutes): 2 out of 2 movement (3 gross body movements in 30 minutes): 2 out of 2 tone (one episode of wzxhrpp-cevgjktcq-uzfegiv limb movement): 2 out of 2 Amniotic fluid pocket (2 cm): 2 out of 2 Total score: 8 out of 8 IMPRESSION: 1. Single living fetus in vertex presentation with heart rate of 139 bpm. 2. Biophysical profile 8 out of 8. 3. Normal amniotic fluid index of 13.5 cm. Reviewed, dictated and finalized at location A. CO ARTIST
[2025-09-01 09:15] VITALS: BP 112/70; PULSE 95
[2025-09-01] MEDS: ACETAMINOPHEN 500 MG TABLET 1000 MG PO (09:25)
--- OUTSIDE RECORDS SUMMARY | 2025-09-01 09:33 | XMS_ITS | Clinical Summary ---
Author Organization [address] - [address] Address [address] [facility] [facility] [address] [place] [address] Phone Care Team Providers Care Stripper Printed Circuit Boards Name Role Phone Unavailable Primary Care Provider Unavailabl e Allergies No known active allergies Medications vits15/iron/fol ic/dss ( VIT [id number] SS ORAL) Take by mouth. 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
--- OUTSIDE RECORDS SUMMARY | 2025-09-01 09:33 | XMS_ITS | Encounter Summary ---
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 [address] PCP - General Family Medicine 12/31/24 documented as of this encounter
--- OUTSIDE RECORDS SUMMARY | 2025-09-01 09:33 | XMS_ITS | Clinical Summary ---
Author Organization [facility] Address [address] [place] [address] Care Team Providers Care French Weaver Name Role Phone Steph Hightower MD Unavailable Tanner Paige MD Primary Care Provider Janell Celaya APNP Unavailable Allergies Active Allergy Reactions Criticality Noted Date Comments Amoxicillin Other (see comment) 07/16/2024 Irregular heart rate Terbutaline Anaphylaxis High 07/19/2022 Medications ondansetron (ZOFRAN-ODT) 4 MG disintegrating tablet Take 1 tablet (4 mg total) by mouth every 8 (eight) hours as needed for Nausea. 20 tablet 01/25/20 25 Active coenzyme Q-10 (CO Q-10) 100 MG capsule Take 3 capsules (300 mg total) by mouth daily. 05/23/20 25 Active Docusate Sodium 100 MG Tab Take 1 tablet by mouth daily as needed (constipati on). 01/07/20 25 Active budesonide-formote rol (SYMBICORT) 80-4.5 MCG/ACT inhaler Inhale 2 puffs into the lungs 2 (two) times daily. Active insulin NPH (HUMULIN N) 100 UNIT/ML injection Inject 7 Units into the skin nightly at bedtime. Active calcium carbonate (TUMS) 500 MG chewable tablet Chew 1 tablet (500 mg total) by mouth daily as needed for Heartburn. Active famotidine (PEPCID) 20 MG tablet Take 1 tablet (20 mg total) by mouth 2 (two) times daily for 10 days. 20 tablet 08/29/20 Active albuterol sulfate HFA 108 (90 Base) MCG/ACT inhaler Inhale 2 puffs into the lungs 4 (four) times daily. 01/08/20 Discontinued SYMBICORT 80-4.5 MCG/ACT inhaler 2 puffs 2 (two) times daily. 01/08/20 Discontinued vitamin, low iron, 27-0.8 mg tablet Take 1 tablet by mouth daily. Discontinued butalbital-acetami nophen-caffeine (ESGIC) 50-325-40 MG tablet Take 1 tablet by mouth every 4 (four) hours as needed. Discontinued vitamin D2, ergocalciferol, (DRISDOL) 1.25 mg capsule Take 1 capsule (1.25 mg total) by mouth once a week. 11/27/19 Discontinued FEROSUL 325 (65 Fe) MG tablet Take 1 tablet (325 mg total) by mouth daily. 05/19/20 Discontinued MAGNESIUM-OXIDE 400 (240 Mg) MG tablet Take 1 tablet (400 mg total) by mouth daily. 05/23/20 Discontinued potassium chloride CR (K-TAB) 20 MEQ tablet Take 1 tablet (20 mEq total) by mouth daily. Discontinued Vit-Fe Sei-FP-Torcj ([employer]-PNV-DHA) 28-1-215.8 MG Cap Take 1 tablet by mouth daily. Discontinued Riboflavin 400 MG Cap Take 400 mg by mouth daily. 05/23/20 Discontinued cephALEXin (KEFLEX) 500 MG capsule Take 1 capsule (500 mg total) by mouth 3 (three) times daily for 5 days. 15 capsule 08/14/20 Active Problems Problem Noted Date Diagnosed Date 05/13/2024 Headache 05/13/2024 Estimated Date of Delivery Comme nts Yes 09/11/2025 Based on Other B asis, per pt Encounters Date Type Department Care Team Description 08/29/2025 7:07 PM BI[employer] PRODUCTION ASSOCIATE - 08/29/2025 9:39 PM BIODIESEL PRODUCTION ASSOCIATE Hospital Encounter [facility] [address] [place] [address] [place] [address] Lester Alfaro MD (Headache) Discharge Disposition: Home or Self Care (Routine Discharge) 08/29/2025 Travel 08/18/2025 7:48 PM CDT - 08/18/2025 9:22 PM CDT Emergency [facility] [address] [place] [address] [place] [address] Nacho Breen MD Chest Pain Discharge Disposition: Home or Self Care (Routine Discharge) 08/18/2025 Travel 08/15/2025 10:59 AM CDT - 08/15/2025 1:56 PM CDT Hospital Encounter [facility] [address] [place] [address] [place] [address] Yeni Pinto MD Discharge Disposition: Home or Self Care (Routine Discharge) 08/14/2025 11:00 AM CDT - 08/14/2025 11:59 AM CDT [facility] [address] [place] [address] [place] [address] Naldo Cadet DO Sore Throat Discharge Disposition: Home or Self Care (Routine Discharge) 08/14/2025 Travel 07/28/2025 Telephone [facility] [address] [place] [address] [place] [address] Марина Grace MD Problem (Pt called stating her pulse is around 116 and her pulse ox is at 93%. She is having a little bit of SOB that she took 2 puffs of Symbicort(inhaler) and it has helped a little. RN advised she call her regular OB and try to see them, if not she could be seen here. ) 07/23/2025 1:43 PM CDT - 07/23/2025 1:47 PM CDT Hospital Encounter [facility] [address] [place] [address] [place] [address] Марина Grace MD Discharge Disposition: Home or Self Care (Routine Discharge) 07/04/2025 12:02 PM CDT - 07/04/2025 1:21 PM CDT Emergency [facility] [address] [place] [address] [place] [address] Naldo Cadet DO Flu Like Symptoms Discharge Disposition: Home or Self Care (Routine Discharge) 07/04/2025 Travel 06/24/2025 10:35 PM CDT - 06/25/2025 12:07 AM CDT Hospital Encounter [facility] [address] [facility] [place] [address] Nate Alvarez MD Abdominal Pain Discharge Disposition: Home or Self Care (Routine Discharge) 06/24/2025 Travel 06/20/2025 3:59 PM CDT - 06/20/2025 5:51 PM CDT Hospital Encounter [facility] [address] [place] [address] [place] [address] Lester Alfaro MD Abdominal Pain Discharge Disposition: Home or Self Care (Routine Discharge) 06/20/2025 Travel 06/08/2025 7:10 PM CDT - 06/08/2025 8:38 PM CDT Emergency [facility] [address] [place] [address] [place] [address] Nacho Breen MD Chest Pain Discharge Disposition: Home or Self Care (Routine Discharge) 06/08/2025 Travel from Last 3 Months Family History [...] Recorded Patient Health Questionnaire-2 Score 0 05/13/2024 [facility] - Occupational Stress Questionnaire Answer Date [...] week 08/29/2025 How often [facility] attend [facility] services? 1 to 4 times per year 08/29/2025 Do you belong to any clubs o r organizations such as religious groups, unions, fraternal or athletic groups, or [...] and heating? Not hard at all 08/29/2025 [facility] - Occupational Stress [...] any time in the past 12 m [facility], were you homeless or living in a assisted (including now)? No 08/29/2025 B1300 Health Literacy Answer Date Recor ded How often do you need to hav e someone help you when you read instructions, pamphlets, or other written material from your doctor or pharmacy? Never 08/29/2025 [facility] Utilities Answer Date Recorded In the past 12 months has e electric, gas, oil, or water company [...] Comments Blood Pressure 109/75 08/29/2025 7:14 PM [employer] PRODUCTION ASSOCIATE Pulse 97 08/29/2025 7:15 PM [employer]EL PRODUCTION ASSOCIATE Temperature 36.2 C (97.2 F) 08/29/2025 7:15 PM [employer]EL PRODUCTION ASSOCIATE Respiratory Rate 17 08/29/2025 7:30 PM BI[employer]EL PRODUCTION ASSOCIATE Oxygen Saturation 96% 08/29/2025 8:12 PM BI[employer]EL PRODUCTION ASSOCIATE Inhaled Oxygen Concentration - - Weight 83 kg (183 lb) 08/29/2025 8:01 PM BI[employer]EL PRODUCTION ASSOCIATE Height 165.1 cm (5' 5) 08/29/2025 8:01 PM BI[employer]EL PRODUCTION ASSOCIATE Body Mass Index 30.45 08/29/2025 8:01 PM BI[employer]EL PRODUCTION ASSOCIATE Plan of Treatment Health Maintenance Due Date Last Done Comments Annual Physical 2002 HPV Vaccines (2 - 3-dose series) 02/02/2017 01/05/2017 DTaP, Tdap and Td Vaccines (7 - Td or Tdap) 06/21/2022 06/21/2012, 06/29/2004, 08/30/2000, Additional history exists COVID-19 Vaccine ( season) 2025 Influenza Adult (#1) 2025 08/31/2014, 08/18/2010, 08/25/2005 Cervical Cancer Screening Pap Smear (Age 21 to 29) Every 3 Years 01/28/2028 01/27/2025, 01/27/2025, 01/27/2025 Cervical Cancer Screening 01/28/2028 Hepatitis B Vaccines Completed 07/29/2000, 04/18/2000, 1999, Additional history exists Meningococcal Vaccine Completed 01/05/2017, 012 Hepatitis C Completed 02/19/2025 Hepatitis A Vaccines Aged Out No long er eligible based on patient's age to complete this topic Meningococcal B Vaccine Aged Out No l onger eligible based on patient's age to complete this topic Pneumococcal Vaccine: Pediatrics (0 to 5 Years) and At-Risk Patients (6 to 49 Years) Aged Out No longer eligible based on patient's age to complete this topic RSV Immunization or 60+ Years (No Doses Required) Completed RSV Immunizations Under 20 Months Aged Out No longer eligible based on patient's age to complete this topic Procedures Procedure Name Priority Date/Time Associated Diagnosis Comments COMPREHENSIVE METABOLIC PANEL STAT 08/29/2025 8:34 PM [employer] PRODUCTION ASSOCIATE Headache CBC W/DIFF AUTOMATED STAT 08/29/2025 8:34 PM [employer]EL PRODUCTION ASSOCIATE Headache ECG 12-LEAD STAT 08/29/2025 8:26 PM [employer]EL PRODUCTION ASSOCIATE Headache CORONAVIRUS (COVID-19) ANTIGEN STAT 08/29/2025 8:16 PM BI[employer]EL PRODUCTION ASSOCIATE Headache RESP SYNCYTIAL VIRUS STAT 08/29/2025 8:16 PM BIODIESEL PRODUCTION ASSOCIATE Headache INFLUENZA A & B STAT 08/29/2025 8:16 PM BI[employer]EL PRODUCTION ASSOCIATE Headache POCT GLUCOSE - DOCKED DEVICE Routine 08/29/2025 8:02 PM BI[employer]EL PRODUCTION ASSOCIATE HC URINALYSIS AUTO W/MICRO STAT 08/29/2025 7:11 PM [employer]EL PRODUCTION ASSOCIATE Headache NONSTRESS TEST Routine 08/29/2025 7:09 PM [employer]EL PRODUCTION ASSOCIATE Headache XR CHEST PORTABLE STAT 08/18/2025 8:1 8 PM CDT TROPONIN, QUANT STAT 08/18/2025 7:43 PM CDT COMPREHENSIVE METABOLIC PANEL STAT 08/18/2025 7:43 PM CDT CBC W/DIFF AUTOMATED STAT 08/18/2025 7:43 PM CDT ECG 12-LEAD STAT 08/18/2025 7:40 PM CDT DRUG SCREEN RAPID Routine 08/15/2025 11: 35 AM CDT Decreased movement affecting management of in third trimester (HHS/HCC) HC URINALYSIS AUTO W/MICRO STAT 08/15/2025 11:35 AM CDT Decreased movement affecting management of in third trimester (HHS/HCC) NONSTRESS TEST Routine 08/15/2025 11:34 AM CDT Decreased movement affecting management of in third trimester (HHS/HCC) POCT GLUCOSE - DOCKED DEVICE Routine 08/15/2025 11:30 AM CDT HC URINALYSIS AUTO W/MICRO STAT 08/14/2025 11:32 AM CDT STREP A RAPID STAT 08/14/2025 11:06 AM CDT RESP SYNCYTIAL VIRUS STAT 08/14/2025 11:06 AM CDT INFLUENZA A & B STAT 08/14/2025 11:06 AM CDT CORONAVIRUS (COVID-19) ANTIGEN STAT 08/14/2025 11:06 AM CDT CULTURE, GENITAL W/ GRAM STAIN Routine 07/23/2025 3:00 PM CDT Back pain affecting (HHS/HCC) CHLAM/GC/TRICHOMONAS PROFILE Routine 07/23/2025 3:00 PM CDT Back pain affecting (HHS/HCC) HC URINALYSIS AUTO W/MICRO STAT 07/23/2025 1:45 PM CDT Back pain affecting (HHS/HCC) HC URINALYSIS AUTO W/MICRO STAT 07/04/2025 12:35 PM CDT RESP SYNCYTIAL VIRUS STAT 07/04/2025 12:20 PM CDT STREP A RAPID STAT 07/04/2025 12:20 PM CDT INFLUENZA A & B STAT 07/04/2025 12:20 PM CDT CORONAVIRUS (COVID-19) ANTIGEN STAT 07/04/2025 12:20 PM CDT HC URINALYSIS AUTO W/MICRO STAT 06/24/2025 11:31 PM CDT Abdominal pain affecting , antepartum (HHS/HCC) NONSTRESS TEST Routine 06/24/2025 10:37 PM CDT Abdominal pain affecting , antepartum (HHS/HCC) CHLAM/GC/TRICHOMONAS PROFILE Routine 06/20/2025 5:14 PM CDT Visual disturbances (HHS/HCC) URINE BACTERIA CULTURE Routine 4:06 PM CDT Visual disturbances (HHS/HCC) HC URINALYSIS AUTO W/MICRO Routine 06/20/2025 4:06 PM CDT Visual disturbances (HHS/HCC) NONSTRESS TEST Routine 06/20/2025 4:01 PM CDT Visual disturbances (HHS/HCC) XR CHEST PORTABLE STAT 06/08/2025 7:5 1 PM CDT TROPONIN, QUANT STAT 06/08/2025 7:35 PM CDT COMPREHENSIVE METABOLIC PANEL STAT 06/08/2025 7:35 PM CDT CBC W/DIFF AUTOMATED STAT 06/08/2025 7:35 PM CDT ECG 12-LEAD Routine 06/08/2025 7:14 PM CDT from Last 3 Months Results * (ABNORMAL) COMPREHENSIVE METABOLIC PANEL (08/29/2025 8:34 PM BIODIESEL PRODUCTION ASSOCIATE) Only the most recent of3 resultswithin the time period is included. SODIUM S/P/B 136 136 - 145 MMOL/L 08/29/2025 8:55 PM [facility] POTASSIUM S/P/B 3.6 3.5 - 5.1 MMOL/L 08/29/2025 8:55 PM [facility] CHLORIDE S/P/B 102 98 - 107 MMOL/L 08/29/2025 8:55 PM [facility] CO2 23.5 21.0 - 32.0 MMOL/L 08/29/2025 8:55 PM [facility] GLUCOSE 123(H) 70 - 99 MG/DL 08/29/2025 8:55 PM [facility] Comment: FASTING GLUCOSE 100 TO 125 MG/DL IS CONSISTENT WITH IMPAIRED FASTING GLUCOSE. FASTING GLUCOSE >125 MG/DL IS CONSISTENT WITH DIABETES. RANDOM GLUCOSE >200 MG/DL WITH HYPERGLYCEMIC SYMPTOMS IS CONSISTENT WITH DIABETES. PER ADA GUIDELINES BUN 10 6 - 24 MG/DL 08/29/2025 8:55 PM [facility] CREATININE S/P/B 0.48(L) 0.55 - 1.02 MG/DL 08/29/2025 8:55 PM [facility] CALCIUM S/P/B 9.3 8.4 - 10.5 MG/DL 08/29/2025 8:55 PM [facility] BILIRUBIN TOTAL S/P/B 0.2 0.2 - 1.0 MG/DL 08/29/2025 8:55 PM [facility] Comment: THIS ASSAY IS NOT RECOMMENDED FOR PATIENTS UNDERGOING TREATMENT WITH ELTROMBOPAG DUE TO THE POTENTIAL FOR FALSELY ELEVATED RESULTS. ALKALINE PHOSPHATASE S/P/B 137(H) 37 - 98 U/L 08/29/2025 8:55 PM [facility] AST 13(L) 15 - 37 U/L 08/29/2025 8:55 PM [facility] ALT 14 14 - 59 U/L 08/29/2025 8:55 PM [facility] TOTAL PROTEIN S/P/B 6.1(L) 6.4 - 8.2 G/DL 08/29/2025 8:55 PM [facility] ALBUMIN S/P/B 2.4(L) 3.4 - 5.0 G/DL 08/29/2025 8:55 PM [facility] ANION GAP 10.5 5.0 - 15.0 MMOL/L 08/29/2025 8:55 PM [facility] OSMOLALITY (CALC) 282 MOSM/KG 025 8:55 PM [facility] Comment:REFERENCE RANGE NOT ESTABLISHED GFR ESTIMATE >90 >89 ML/MIN/1. 73 M2 08/29/2025 8:55 PM [facility] GFR NOTES GFR REFERENCE S: 08/29/2025 8:55 PM [facility] Comment: THE ESTIMATED GFR IS [...] FAILURE: <15 ml/min/1.73 m2 08/29/2025 8:34 PM BI[employer] PRODUCTION ASSOCIATE us Lester Alfaro MD LABORATORY Final Result [facility] [address] [address], * (ABNORMAL) CBC W/DIFF AUTOMATED (08/29/2025 8:34 PM BIODIESEL PRODUCTION ASSOCIATE) Only the most recent of3 resultswithin the time period is included. WBC 8.72 4.00 - 10.80 x10'3/uL 08/29/2025 8:39 PM BIODIESEL PRODUCTION ASSOCIATE [facility] RBC 3.94(L) 4.10 - 5.40 x10'6/uL 08/29/2025 8:39 PM BIODIESEL PRODUCTION ASSOCIATE [facility] HGB 10.2(L) 12.0 - 16.0 G/DL 08/29/2025 8:39 PM BIODIESEL PRODUCTION ASSOCIATE [facility] HCT 32.0(L) 36.0 - 47.0 % 08/29/2025 8:39 PM BIODIESEL PRODUCTION ASSOCIATE [facility] MCV 81.2 78.0 - 100.0 FL 08/29/2025 8:39 PM BIODIESEL PRODUCTION ASSOCIATE [facility] MCH 25.9(L) 27.0 - 31.0 PG 08/29/2025 8:39 PM BIODIESEL PRODUCTION ASSOCIATE [facility] MCHC 31.9(L) 33.0 - 36.0 G/DL 08/29/2025 8:39 PM BIODIESEL PRODUCTION ASSOCIATE [facility] RDW 14.3 11.5 - 14.5 % 08/29/2025 8:39 PM BIODIESEL PRODUCTION ASSOCIATE [facility] PLT 217 150 - 350 x10'3/uL 08/29/2025 8:39 PM BIODIESEL PRODUCTION ASSOCIATE [facility] MPV 9.5 7.4 - 10.4 FL 08/29/2025 8:39 PM BIODIESEL PRODUCTION ASSOCIATE [facility] CBC COMMENT NORMAL REFERENCE RANGE NOT ESTABLISHED FOR THE PROPORTIONAL LEUKOCYTE DIFFERENTIAL. 08/29/2025 8:39 PM BIODIESEL PRODUCTION ASSOCIATE [facility] NEUTROPHILS % 63.2 % 08/29/2025 8:39 PM BIODIESEL PRODUCTION ASSOCIATE [facility] LYMPHOCYTES % 21.4 % 08/29/2025 8:39 PM BIODIESEL PRODUCTION ASSOCIATE [facility] MONOCYTES % 12.5 % 08/29/2025 8:39 PM BIODIESEL PRODUCTION ASSOCIATE [facility] EOSINOPHILS % 1.1 % 08/29/2025 8:39 PM BIODIESEL PRODUCTION ASSOCIATE [facility] BASOPHILS % 0.1 % 08/29/2025 8:39 PM BIODIESEL PRODUCTION ASSOCIATE [facility] IMMATURE GRANS % 1.7 % 08/29/20 8:39 PM BIODIESEL PRODUCTION ASSOCIATE [facility] NRBC % 0.0 % 08/29/2025 8:39 PM BIODIESEL PRODUCTION ASSOCIATE [facility] ABS. NEUTROPHILS 5.50 1.60 - 8.30 x10'3/uL 08/29/2025 8:39 PM BIODIESEL PRODUCTION ASSOCIATE [facility] ABS. LYMPHOCYTES 1.87 0.80 - 4.70 x10'3/uL 08/29/2025 8:39 PM BIODIESEL PRODUCTION ASSOCIATE [facility] ABS. MONOCYTES 1.09 0.00 - 1.50 x10'3/uL 08/29/2025 8:39 PM BIODIESEL PRODUCTION ASSOCIATE [facility] ABS. EOSINOPHILS 0.10 0.00 - 0.40 x10'3/uL 08/29/2025 8:39 PM BIODIESEL PRODUCTION ASSOCIATE [facility] ABS. BASOPHILS 0.01 0.00 - 0.20 x10'3/uL 08/29/2025 8:39 PM BIODIESEL PRODUCTION ASSOCIATE [facility] ABS. IMMATURE GRANULOCYTES 0.15(H) 0.00 - 0.03 x10'3/uL 08/29/2025 8:39 PM BIODIESEL PRODUCTION ASSOCIATE [facility] ABS. NUCLEATED RBC'S 0.00 0.00 - 0.01 x10'3/uL 08/29/2025 8:39 PM BIODIESEL PRODUCTION ASSOCIATE [facility] 08/29/2025 8:34 PM BIODIESEL PRODUCTION ASSOCIATE us Lester Alfaro MD LABORATORY Final Result [facility] [address] [place] [address], * ECG 12 lead (08/29/2025 8:26 PM BIODIESEL PRODUCTION ASSOCIATE) Only the most recent of3 resultswithin the time period is included. ECG QT 357 [facility] ECG QTC 402 [facility] 08/29/2025 8:26 PM BIODIESEL PRODUCTION ASSOCIATE Narrative [facility] - 08/29/2025 9:48 PM BIODIESEL PRODUCTION ASSOCIATE [address] [place] [address] Test Date: 2025-08-29 [facility] Gender: Female Package Crimper: : 2000 Requested By: LESTER ALFARO Order Number: [id number] Reading MD: Steph Hightower Measurements Intervals [place] Rate: 76 P: 67 MD: 132 QRS: 53 QRSD: 83 T: 54 QT: 357 QTc: 402 Interpretive Statements SINUS RHYTHM IESEL PRODUCTION ASSOCIATE Procedure Note Steph Hightower MD - 08/29/[address] [place] [address] Test Date: 2025-08-29 Pat Name: LIBRADO MEJIA Department: 3 Room: [facility] Gender: Female Package Crimper: : 2000 Requested By: LESTER ALFARO Order Number: [id number] Reading MD: Steph Hightower Measurements Intervals [place] Rate: 76 P: 67 MD: 132 QRS: 53 QRSD: 83 T: 54 QT: 357 QTc: 402 Interpretive Statements SINUS RHYTHM IESEL PRODUCTION ASSOCIATE us Lester Alfaro MD ECG ORDERABLES Final Result [facility] * CORONAVIRUS (COVID-19) ANTIGEN (08/29/2025 8:16 PM BIODIESEL PRODUCTION ASSOCIATE) Only the most recent of3 resultswithin the time period is included. CORONAVIRUS ANTIGEN IA NEGATIVE NEGATIVE 08/29/2025 8:55 PM BIODIESEL PRODUCTION ASSOCIATE [facility] Comment: NEGATIVE RESULTS DO NOT [...] LABORATORIES. SPECIMEN TYPE NASAL 08/29/2025 8:34 PM BIODIESEL PRODUCTION ASSOCIATE [facility] NASAL NASAL STRUCTURE / Unknown 08/29/2025 8:16 PM BIODIESEL PRODUCTION ASSOCIATE us Lester Alfaro MD MICROBIOLOGY - GENERAL ORDERA BLES Final Result Performing Organization Address [facility] [place] [address], * INFLUENZA A & B (08/29/2025 8:16 PM BIODIESEL PRODUCTION ASSOCIATE) Only the most recent of3 resultswithin the time period is included. SPECIMEN TYPE (INFLUENZA) NASAL 08/29/2025 8:21 PM BIODIESEL PRODUCTION ASSOCIATE [facility] INFLUENZA A NEGATIVE NEGATIVE 08/29/2025 8:49 PM BIODIESEL PRODUCTION ASSOCIATE [facility] INFLUENZA B NEGATIVE NEGATIVE 08/29/2025 8:49 PM BIODIESEL PRODUCTION ASSOCIATE [facility] Comment: A NEGATIVE RESULT DOES NOT EXCLUDE INFLUENZA VIRUS INFECTION. IF INFLUENZA IS CIRCULATING IN YOUR COMMUNITY, A DIAGNOSIS OF INFLUENZA SHOULD BE CONSIDERED BASED ON A PATIENT'S CLINICAL PRESENTATION AND EMPIRIC ANTIVIRAL TREATMENT SHOULD BE CONSIDERED IF INDICATED. NASAL STRUCTURE / Unknown 08/29/2025 8:16 PM BIODIESEL PRODUCTION ASSOCIATE us Lester Alfaro MD MICROBIOLOGY - GENERAL ORDERA BLES Final Result Performing Organization Address [facility] Co de Phone Number [facility] [address] [place], [place] [address] [place] [address], * RESP SYNCYTIAL VIRUS (08/29/2025 8:16 PM BIODIESEL PRODUCTION ASSOCIATE) Only the most recent of3 resultswithin the time period is included. SPECIMEN TYPE NASOPHARYNGEAL SWAB 08/29/2025 8:21 PM BIODIESEL PRODUCTION ASSOCIATE [facility] RSV NEGATIVE NEGATIVE 08/29/2025 8:49 PM BIODIESEL PRODUCTION ASSOCIATE [facility] NASOPHARYNGEAL SWAB / Unknown 08/29/2025 8:16 PM BIODIESEL PRODUCTION ASSOCIATE Lester Alfaro MD MICROBIOLOGY - GENERAL ORDERA BLES Final Result Performing Organization Address [facility] [place] [address], [place] [phone] * (ABNORMAL) POCT glucose (08/29/2025 8:02 PM BIODIESEL PRODUCTION ASSOCIATE) Only the most recent of2 resultswithin the time period is included. GLUCOSE POC 128(H) 70 - 99 MG/DL 08/29/2025 8:04 PM BIODIESEL PRODUCTION ASSOCIATE [facility] 08/29/2025 8:02 PM BIODIESEL PRODUCTION ASSOCIATE Lester Alfaro MD POCT ORDERABLES - DEVICE Zully l Result Performing Organization Address [facility] [place] [address], [place] [phone] * (ABNORMAL) URINALYSIS (08/29/2025 7:11 PM BIODIESEL PRODUCTION ASSOCIATE) Only the most recent of7 resultswithin the time period is included. COLOR (U) YELLOW 08/29/2025 7:26 PM BIODIESEL PRODUCTION ASSOCIATE [facility] TRANSPARENCY CLEAR 08/29/2025 7:26 PM BIODIESEL PRODUCTION ASSOCIATE [facility] SPECIFIC GRAVITY (U) 1.030(H) 1.000 - 1.025 08/29/2025 7:26 PM [employer] [facility] Comment:EQUAL TO OR GREATER THAN U PH 6.0 5.0 - 8.0 08/29/2025 7:26 PM [employer] [facility] LEUKOCYTES (U) NEGATIVE NEGATIVE 08/29/2025 7:26 PM [employer] [facility] NITRITES NEGATIVE NEGATIVE 08/29/2025 7:26 PM [employer] [facility] PROTEIN RANDOM (U) TRACE(A) NEGATIVE 08/29/2025 7:26 PM [employer] [facility] GLUCOSE (U) NEGATIVE NEGATIVE 08/29/2025 7:26 PM [employer] [facility] KETONES MG/DL (U) TRACE(A) NEGATIVE 08/29/2025 7:26 PM [employer] [facility] UROBILINOGEN 1.0(H) <1.0 EU/DL 08/29/2025 7:26 PM [employer] [facility] BILIRUBIN (U) NEGATIVE NEGATIVE 08/29/2025 7:26 PM [employer] [facility] BLOOD (U) NEGATIVE NEGATIVE 08/29/2025 7:26 PM [employer] [facility] WBC/HPF 0-5 0 - 5 /HPF 08/29/2025 7:26 PM [employer] [facility] [facility] RBC/HPF 0-5 0 - 5 /HPF 08/29/2025 7:26 PM BIODIESEL PRODUCTION ASSOCIATE [facility] EPI/LPF FEW /LPF 08/29/2025 7:26 PM BIODIESEL PRODUCTION ASSOCIATE [facility] BACTERIA (U) 2+ /HPF 08/29/2025 7:26 PM BIODIESEL PRODUCTION ASSOCIATE [facility] MUCUS PRESENT 08/29/2025 7:26 PM BIODIESEL PRODUCTION ASSOCIATE [facility] URINE SPECIMEN OBTAINED BY CLEAN CATCH PROCEDURE / Unknown 08/29/2025 7:11 PM BIODIESEL PRODUCTION ASSOCIATE us Lester Alfaro MD URINE ORDERABLES Final Result [facility] [address] [place] [address], * XR CHEST PORTABLE (08/18/2025 8:18 PM CDT) Only the most recent of2 resultswithin the time period is included. Anatomical Region Laterality Modality Chest Radiographic Jazmin ging 08/18/2025 8:23 PM CDT Impressions 08/18/2025 9:15 PM CDT IMPRESSION: There are no acute cardiopulmonary findings. Dictated By: Julia King MD on 08/18/2025 8:23 PM The attending radiologist has reviewed the image(s) and agrees with the content of this report. Ordered By: NACHO BREEN Interpreted By: Julia King MD, 08/18/2025 8:23 PM Narrative 08/18/2025 9:15 PM [address]T [address] [place] [address] Examination: Chest x-ray 1 view Exam time: 08/18/2025 7:50 PM Clinical history: Pain. Comparison: 06/08/2025 CXR Technique: Single PA view was obtained. Findings: The cardiomediastinal silhouette appears unremarkable and the heart size is within normal parameters. There is normal distribution of the pulmonary vasculature. Mild bibasilar atelectasis. No parenchymal consolidations are identified. There are no pleural effusions. There is no pneumothorax. No acute osseous abnormality is identified. Procedure Note Timothy Mohan MD - 08/18/[address] [place] [address] Examination: Chest x-ray 1 view Exam time: 08/18/2025 7:50 PM Clinical history: Pain. Comparison: 06/08/2025 CXR Technique: Single PA view was obtained. Findings: The cardiomediastinal silhouette appears unremarkable and the heart sizeis within normal parameters. There is normal distribution of the pulmonaryvasculature. Mild bibasilar atelectasis. No parenchymal consolidations areidentified. There are no pleural effusions. There is no pneumothorax. Noacute osseous abnormality is identified. IMPRESSION: There are no acute cardiopulmonary findings. Dictated By: Julia King MD on 08/18/2025 8:23 PM The attending radiologist has reviewed the image(s) and agrees with thecontent of this report. Ordered By: NACHO BREEN Interpreted By: Julia King MD, 08/18/2025 8:23 PM Nacho Breen MD GENERAL IMAGING Final Result * TROPONIN, QUANT (08/18/2025 7:43 PM CDT) Only the most recent of2 resultswithin the time period is included. Pathologist [facility] TROPONIN I HIGH SENSITIVITY 4 0 - 51 ng/L 08/18/2025 9:13 PM CDT [facility] 08/18/2025 7:43 PM CDT Nacho Beren MD LABORATORY Final Result [facility] Critical access hospital[address] [place] [address], * DRUG SCREEN RAPID (08/15/2025 11:35 AM CDT) Pathologist [facility] CANNABINOIDS SCREEN (U) NEGATIVE NEGATIVE 08/15/2025 11:57 AM CDT [facility] PHENCYCLIDINE PCP (U) NEGATIVE NEGATIVE 08/15/2025 11:57 AM CDT [facility] COCAINE METABOLITES (U) NEGATIVE NEGATIVE 08/15/2025 11:57 AM CDT [facility] METHAMPHETAMINE SCREEN (U) NEGATIVE NEGATIVE 08/15/2025 11:57 AM CDT [facility] OPIATE SCREEN (U) NEGATIVE NEGATIVE 025 11:57 AM CDT [facility] AMPHETAMINE SCREEN (U) NEGATIVE NEGATIVE 08/15/2025 11:57 AM CDT [facility] BENZODIAZEPINES SCREEN (U) NEGATIVE NEGATIVE 08/15/2025 11:57 AM CDT [facility] TRICYCLIC ANTIDEPRESSANT SCREEN (U) NEGATIVE NEGATIVE 08/15/2025 11:57 AM CDT [facility] METHADONE (U) NEGATIVE NEGATIVE 08/15/2025 11:57 AM CDT [facility] BARBITURATES SCREEN (U) NEGATIVE NEGATIVE 08/15/2025 11:57 AM CDT [facility] OXYCODONE SCREEN (U) NEGATIVE NEGATIVE 08/15/2025 11:57 AM CDT [facility] URINE TOX COMMENT THIS TEST METHODOLOGY IS DESIGNED AND OFFERED A RAPID TURNAROUND, QUALITATIVE SCREENING PROCEDURE TO AID IN THE IMMEDIATE MEDICAL ASSESSMENT OF PATIENTS SUSPECTED OF SUBSTANCE ABUSE. 08/15/2025 11:36 AM CDT [facility] Comment: CLINICAL CONSIDERATION AND PROFESSIONAL JUDGMENT MUST BE APPLIED TO ANY DRUG OF ABUSE TEST RESULT, BOTH POSITIVE AND NEGATIVE. CONFIRMATORY QUANTITATIVE RESULTS ARE AVAILABLE THROUGH OUR [facility]. URINE SPECIMEN / Unknown 08/15/2025 11:35 AM CDT Yeni Pinto MD URINE ORDERABLES Final Result Performing Organization Address City/[facility]/ZIP Co de Phone Number [place] [phone] [place] [address], * STREP A RAPID (08/14/2025 11:06 AM CDT) Only the most recent of2 resultswithin the time period is included. SPECIMEN SOURCE THROAT 08/14/2025 11:11 AM CDT [facility] RAPID STREP TEST NEGATIVE NEGATIVE 08/14/2025 11:22 AM CDT [facility] STRUCTURE OF ANTERIOR REGION OF NECK / Unknown 08/14/2025 11:06 AM CDT Naldo Cadet DO MICROBIOLOGY - GENERAL ORDERAB LES Final Result [facility] [address] [place] [address], [place] [phone] * CULTURE, GENITAL W/ GRAM STAIN (07/23/2025 3:00 PM CDT) SPEC DESCRIPTION VAGINAL SPECIMEN 07/23/2025 3:08 PM CDT [facility] SPECIAL REQUESTS NO SPECIAL REQUEST 07/23/2025 3:08 PM CDT [facility] GRAM STAIN RESULT MANY GRAM POSITIVE RODS 07/23/2025 3:41 PM CDT [facility] GRAM STAIN RESULT EPITHELIAL CELLS SEEN 07/23/2025 3:41 PM CDT [facility] GRAM STAIN RESULT WBC'S SEEN 07/23/2025 3:41 PM CDT [facility] GRAM STAIN RESULT NO CLUE CELLS SEEN 07/23/2025 3:41 PM CDT [facility] GRAM STAIN RESULT NO FUNGAL ELEMENTS/YEAST SEEN 07/23/2025 3:41 PM CDT [facility] CULTURE RESULT RARE STAPHYLOCOCCUS , COAGULASE NEGATIVE 07/27/2025 11:57 AM CDT [facility] CULTURE RESULT MODERATE LACTOBACILLUS SPECIES 07/27/2025 11:57 AM CDT [facility] VAGINAL STRUCTURE / Unknown 07/23/2025 3:00 PM CDT 07/23/2025 6:16 PM CDT us Марина Grace MD MICROBIOLOGY - GENERAL ORDER ARLENE Final Result [facility] [address] [place] [address], [phone] [facility] [address] [place] [address], * CHLAM/GC/TRICHOMONAS PROFILE (07/23/2025 3:00 PM CDT) Only the most recent of2 resultswithin the time period is included. SPEC DESCRIPTION VAGINAL SWAB 2024 3:08 PM CDT [facility] CHLAMYDIA RNA TMA NEGATIVE NEGATIVE 025 12:18 PM CDT [facility] Comment:PERFORMED BY NUCLEIC ACID AMPLIFICATION N.GONORRHOEAE RNA TMA NEGATIVE NEGATIVE 07/26/2025 12:18 PM CDT [facility] Comment:PERFORMED BY NUCLEIC ACID AMPLIFICATION TRICHOMONAS NEGATIVE NEGATIVE 07/27/2025 12:38 PM CDT [facility] Comment:PERFORMED BY NUCLEIC ACID AMPLIFICATION VAGINAL STRUCTURE / Unknown 07/23/2025 3:00 PM CDT Марина Grace MD MICROBIOLOGY - GENERAL ORDER ARLENE Final Result Performing Organization Address City/[facility]/ZIP Co de Phone Number [facility] [address] [place] [address], [facility] [address] [place] [address], * URINE BACTERIA CULTURE (06/20/2025 4:06 PM CDT) SPEC DESCRIPTION URINE CLEAN CATCH 06/20/2025 4:55 PM CDT [facility] SPECIAL REQUESTS NO SPECIAL REQUEST 06/20/2025 4:55 PM CDT [facility] CULTURE RESULT NO GROWTH (< OR = 1,000 CFU/ML) 06/23/2025 7:27 AM CDT [facility] URINE SPECIMEN OBTAINED BY CLEAN CATCH PROCEDURE / Unknown 06/20/2025 4:06 PM CDT 06/21/2025 12:01 PM CDT Lester Alfaro MD MICROBIOLOGY - GENERAL ORDERA BLES Final Result Performing Organization Address City/[facility] de Phone Number [facility] [address] [place] [address], [phone] [facility] Critical access hospital[address] [place] [address], from Last 3 Months Insurance [employer] Care Teams French Weaver Relationship Specialty Start Date End Date Tanner Paige MD [address] [facility] [phone] PCP - General FAMILY PRACTICE 07/01/24 Steph Hightower MD [address] [place] [address] Consulting Physician CARDIOVASCULAR DISEASE 11/07/22 Janell Celaya APNP [address] [place] [phone] NURSE PRACTITIONER 12/01/24
--- OUTSIDE RECORDS SUMMARY | 2025-09-01 09:33 | XMS_ITS | Clinical Summary ---
Author Organization [facility] Address [address] [place] [address] Care Team Providers Care Planer Operator / Grader Name Role Phone Tammi Menon DOREEN Primary [...] have care with Dr. Ortega Denson in [place], [place]. Assessment & Plan (07/04/2019 7:48 PM CDT): - no plans to [place] care [place] - gave Rx for doxylamine/pyridoxine for nausea - encouraged smoking cessation; recommended she d/w Dr. Addison Denson when she establishes care Abdominal pain in 07/04/2019 Overview (07/04/2019): 07/04/2019: presented to [facility], r/o for acute process. Transfer to [facility] for dating confirmation. Reports no [...] on file Legal Sex Female 11:55 PM QUALITY IMPROVEMENT SPECIALIST Gender Identity Not on file Sexual [...] Comments Blood Pressure 101/69 12/31/2024 5:25 PM QUALITY IMPROVEMENT SPECIALIST Pulse 77 12/31/2024 5:25 PM QUALITY IMPROVEMENT SPECIALIST Temperature 37.1 C (98.7 F) 12/31/2024 2:09 PM QUALITY IMPROVEMENT SPECIALIST Respiratory Rate 18 12/31/2024 5:25 PM QUALITY IMPROVEMENT SPECIALIST Oxygen Saturation 100% 12/31/2024 5:25 PM QUALITY IMPROVEMENT SPECIALIST Inhaled Oxygen Concentration - - Weight 72.7 kg (160 lb 4.4 oz) 12/31/2024 2:09 P M QUALITY IMPROVEMENT SPECIALIST Height 165.1 cm (5' 5) 12/31/2024 2:09 PM QUALITY IMPROVEMENT SPECIALIST Body Mass Index 26.67 12/31/2024 2:09 PM QUALITY IMPROVEMENT SPECIALIST Plan of Treatment Health Maintenance Due [...] Insurance [facility] Care Teams Planer Operator / Grader Relationship Specialty Start Date End Date Tammi Menon LauraDOREEN [address] Pediatric Emerg. Dept. [place] [phone] PCP - General Family Medicine 12/31/24
--- OUTSIDE RECORDS SUMMARY | 2025-09-01 09:33 | XMS_ITS | Clinical Summary ---
Author Organization [facility] Address [address] [place] [address] Phone Care Team Providers Care Director Of Business Services Name Role Phone Unavailable Primary Care Provider [...] by inhalation 2 times daily. Active vitamin (HULL INSPECTOR-PNV-DHA) 28-1-215.8 MG Capsule Take by mouth. Activ [...] Upcoming Encounters Date Type Department Care Team ([facility] st Contact Info) Description 09/21/2025 1:00 PM TOWN MANAGER Office Visit [facility] [address] [place] [address] Kaitlin Kelly, MOTIVATIONAL SPEAKER, SPECIAL EFFECTS MAKEUP ARTIST [address] [place] [address] Health Maintenance Due Date Last Done Comments [...] age to complete this topic Insurance MEDICAID [employer]
--- OUTSIDE RECORDS SUMMARY | 2025-09-01 09:33 | XMS_ITS | Clinical Summary ---
Author Organization [employer] [facility] Address [address] [place] [address] Care Team Providers Care Taxicab Starter Name Role Phone Unavailable Primary Care Provider Unavailabl e Source Comments [facility],non-owned Affiliates and Associated Physician Practices is amultiple site organization consisting of ambulatory clinics and hospital sitesin [place], [place], [place] and [place]. This disclosure is being madepursuant to the Care Everywhere program and may not contain all information available regarding this patient. Last updated 18.[employer] Allergies Active Allergy Reactions Criticality Noted Date [...] Department Care Team Description 08/30/2025 Patient Outreach [facility] MAT[facility]NAL/ EVALUATION UNIT [address] [place] [address] [address]. [address] [place] [phone] Anju Flanagan RN Care Management Other (Follow up for SDOH needs. Pt was seen once at [facility] on 06/07/25. Pt has no other follow up appointment at this location. She is receiving care in [place]. Will close this referral. ) 07/19/2025 Orders Only [facility] MATERNAL/ EVALUATION UNIT [facility] [place] [phone] Karri Bledsoe MD Needs assistance with community resources 07/19/2025 Patient Outreach [facility] MATERNAL/ EVALUATION UNIT [facility] [address] [place] [phone] Drea Romano RN Care Management Other 06/08/2025 Patient Outreach [facility] MATERNAL/ EVALUATION UNIT [facility] [address] [place] [address] Drea Romano RN Care Management Other (Called pt to establish referral services by SDOH team to address identified needs of stress. No answer, voicemail left. MyChart or email not available.) 06/07/2025 9:57 AM CDT - 06/07/2025 11:59 PM CDT Hospital Encounter [facility] MATERNAL/ EVALUATION UNIT [address] [place] [address] Keny Goyal MD Discharge Disposition: Home or Self Care 06/07/2025 9:45 AM CDT - 06/07/2025 9:56 AM CDT Hospital Encounter [facility] MATERNAL/ EVALUATION UNIT [address] [place] [address] Karri Bledsoe MD Discharge Disposition: Home or Self Care 06/07/2025 Travel from Last 3 Months Social History Tobacco Use Types Packs/Day Years Used Date Smoking Tobacco: Never Assessed Overall Financial Resource Strain (CARDIA) Answe r Date Recorded How hard is it for you to pa y for the very basics like food, housing, medical care, and heating? Not hard at all 06/07/2025 [facility] of Occupat ional Health - Occupational Stress [...] things needed for daily living? No 06/07/2025 Schertz Depression Scale Answer Date Recorded Schertz Depression Scale Total 14 06/07/2025 The thought [...] any time in the past 12 m [facility], were you homeless or living in a alf (including now)? No 06/07/2025 Estimated Date of Delivery Comme nts Yes 09/11/2025 Based on Patient Reported Sex and Gender Information Value Date Recorded Sex Assigned at Female 05/25/2025 10:41 AM CDT Legal Sex Female 1:27 PM COMPOUNDER Gender Identity Not on file Sexual Orientation [...] urogenital pablo TANYA 06/08/2025 7:17 PM CDT [facility] MICROBIOLOGY Urine URINE SPECIMEN OBTAINED BY CLEAN CATCH PROCEDURE / Unknown Collection / Unknown 06/07/2025 12:52 PM CDT 06/07/2025 1:53 PM CDT Keny Goyal MD LAB - MICROBIOLOGY ORDERABLES Final Result [facility] MICROBIOLOGY [address] [place] [address], [facility] [phone] * (ABNORMAL) URINALYSIS - POCT (IP) BEAKER INTERFACE (06/07/2025 12:09 PM CDT) Color UA POCT Yellow Straw, Yellow, Dark Yellow, Light Yellow 06/07/2025 12:11 PM CDT [facility]ORATORY Clarity UA POCT Cloudy(A) Clear 12:11 PM CDT [facility] Specific [place] UA POCT 1.025 1.005 - 1.030 06/07/2025 [...] POCT Negative Negative 06/07/2025 12:11 PM CDT [facility] Urobilinogen UA POCT 0.2 0.1 - 1.0 EU/dL 06/07/2025 12:11 PM CDT [facility] Urine URINE / Unknown 06/07/2025 1 2:09 PM CDT 06/07/2025 12:11 PM CDT Karri Bledsoe MD LAB - POINT OF CARE ORDERABLES Final Result Performing Organization Address City/State/[facility] Co de Phone Number [facility] [address] [place] [address] * Sonogram - Complete (06/07/2025 10:32 AM CDT) Linked Results Indication ======== anatomy evaluation Marginal PCI and EIF on outside scan Headache complicating Short interval History ====== OB History 6. Para 4 [id number] 1. live 2017. Gest. age 38 w [...] 2 lb 6 oz EFW by Hadlock ([id number]) Head / Face / Neck Biometry: CM [...] Thorax 4-chamber view. RVOT view. 3-vessel view. 5-zpfdeu-uioykgg view. Situs. Aortic arch view. Ductal arch [...] Z36.3: Encounter for screening for malformations Procedures 19601: [place] Preg Uterus Detailed [employer] PACS Anatomical Region Laterality Modality Other 06/07/2025 10:3 2 AM CDT Anju Mcnamara DEPARTMENT OF NATURAL RESOURCES OFFICER-VALVE MECHANIC [facility] ORDERABLES Edited Result - Final from Last 3 Months Insurance [facility] Advance Directives * Full Code (Latest Code Status on File) Date Activated Date Inactivated Comments 05/21/2025 3:16 PM 05/23/2025 3:20 PM
[2025-09-01 10:15] VITALS: BP 113/64; PULSE 91
[2025-09-01 10:38] VITALS: BP 113/64; PULSE 97
[2025-09-01 10:54] LABS: OBXCEM ROM Plus Negative (Negative)
== END 2025-09-01 10:59 | disposition home or self-care (01) ==
LOC: ANHOBOP 09:05 → ANHOBPP 09:06
PROVIDERS: Visit Provider Advanced Practice Midwife
DX: O42.90 Premature rupture of membranes, unspecified as to length of time between rupture and onset of labor, unspecified weeks of gestation (principal); Z3A.00 Weeks of gestation of pregnancy not specified
CPT/HCPCS: 59025; 76819; 84112; 99199; A9270

== ENCOUNTER 2025-09-04 05:54 | Inpatient (IN) | payer OTHER, SELFPAY ==
[2025-09-04] VITALS (160 sets, daily range): BP systolic 95–148; BP diastolic 59–117; PULSE 65–239; RESP 16–18; TEMP 36.2–37.2; O2SAT 93–100; BMI 30.5
[2025-09-04 06:44] LABS: Hematocrit 34.0 % (37.0-47.0); Hemoglobin 10.7 g/dL (12.0-15.0); Immature Granulocyte Percent A 1.5 % (0-0.5); Lymphocytes Absolute Auto 1.53 K/mm3 (0.9-3.2); Mean Corpuscular HGB Conc 31.5 g/dl (32-36); Mean Corpuscular Hemoglobin 25.9 pg (26-34); Mean Corpuscular Volume 82.3 fl (80-100); Nucleated Red Blood Cells Absolute Auto 0.000 K/mm3 (0.0-0.012); Nucleated Red Blood Cells Perc 0.0 % (0.0-0.2); Platelet Count Result 216 k/mm3 (150-375); Red Blood Count 4.13 M/mm3 (4.2-5.4); White Blood Count 6.7 K/mm3 (4.5-10.0)
--- NOTE | 2025-09-04 07:11 | LDADM ---
This patient, Yuni Mejia, was admitted to Labor/Delivery/Recovery 107 on 09/04/25 at 05:54. Plans for labor, pain management and were discussed with patient. Patient/family oriented to hospital policies and general routines including ID bracelet, bed and alarms, visiting hours, pain management, procedures, bathroom and other care routines, personal items, smoking policy, room service/diet and guest tray routines, security routines, and visiting hours. Patient/Family are encouraged to report perceived risks to care and to ask questions if they do not understand what they are told or what they should do. See OBIX for further documentation.
[2025-09-04 07:30] LABS: Syphilis IgG/IgM Antibody Non-Reactive (Nonreactive)
--- NOTE | 2025-09-04 08:34 | WPDOBADMIT ---
Obstetrics - Admit Note Admission Note: record reviewed. No pertinent additions to the history and/or any subsequent changes in the physical findings that are not consistent with the expected course of the were found. Additions to the history and/or subsequent changes in the physical findings follow. Admit for IOL, SVE /-2, AROM clear, odorless fluid, anticipate vaginal delivery
[2025-09-04] MEDS: LACTATED RINGERS 1,000 ML 125 ML IV CONT ×2 (10:03→11:11)
[2025-09-04] MEDS: fentaNYL CITRATE INJ (*CRX) 100 MCG/2 ML VIAL 50 MCG IV PUSH (10:39)
[2025-09-04] MEDS: OXYTOCIN 30 UNITS/NS 500 ML 30 UNITS/500 ML BAG IV CONT (11:28)
[2025-09-04] MEDS: ONDANSETRON INJ 4 MG/2 ML VIAL IV PUSH (11:49)
--- NOTE | 2025-09-04 13:08 | PM.OBPRVD ---
OB - Vaginal Delivery Note Procedure Delivery date: 09/04/25 Events: Gestational Diabetes (insulin) Induction method: AROM and Per Pitocin Protocol Delivery monitor: External FHT and External Uterine Route of delivery: Episiotomy description: None Laceration Description: None Specimen: No Quantitative Blood Loss (ml): 100 Anesthesia type: Epidural Disposition: Floor Baby Date of : 09/04/25 Time of : 12:56 Gestational Age by Date: 39 Infant gender: Female presentation: vertex position: Left Occiput Anterior Placenta delivery description: Manual Removal Cord Vessel Description: 3 Vessels score one minute: 7 score five minutes: 8
[2025-09-04] MEDS: NACL 0.9% IRRIGATION POUR BOTTLE 500 ML (13:22)
--- NOTE | 2025-09-04 13:29 | PM.OBPNLAB ---
Pain Control Date/time seen: 09/04/25 13:29 Comments: demetrio
[2025-09-04 13:50] LABS: Hematocrit 33.6 % (37.0-47.0); Hemoglobin 10.4 g/dL (12.0-15.0); Immature Granulocyte Percent A 1.6 % (0-0.5); Lymphocytes Absolute Auto 2.05 K/mm3 (0.9-3.2); Mean Corpuscular HGB Conc 31.0 g/dl (32-36); Mean Corpuscular Hemoglobin 25.7 pg (26-34); Mean Corpuscular Volume 83.2 fl (80-100); Nucleated Red Blood Cells Absolute Auto 0.000 K/mm3 (0.0-0.012); Nucleated Red Blood Cells Perc 0.0 % (0.0-0.2); Platelet Count Result 225 k/mm3 (150-375); Red Blood Count 4.04 M/mm3 (4.2-5.4); White Blood Count 8.3 K/mm3 (4.5-10.0)
[2025-09-04] MEDS: OXYTOCIN 30 UNITS/NS 500 ML 30 UNITS/500 ML BAG 125 UNITS IV CONT (13:56)
--- NOTE | 2025-09-04 13:56 | P.PNAN_ITS ---
Anes - Initial Pre Proc Eval Procedure: Operation Date: 09/06/25 07:30 Proposed Procedures p Post- Tubal Ligation - Shawn Mcginnis MD Date/Time: 09/04/25 13:56 Surgeon: Shawn Mcginnis MD Pre Op Diagnosis: IOL Patient Data Age: 25 Gender: F Height: 1.65 m Weight: 83.2 kg Last Vital Signs Temp 36.3 C L 09/04/25 11:14 Pulse 115 H 09/04/25 13:46 BP 122/72 09/04/25 13:46 Pulse Ox 99 09/04/25 13:55 O2 Del Method Room Air 09/04/25 07:09 Allergies Allergy/AdvReac Type Severity Reaction Status Date / Time terbutaline Allergy Severe Anaphylactic Verified 09/04/25 07:20 Shock amoxicillin (From Amoxil) AdvReac Palpitation Verified 09/04/25 07:20 s Home Medications ?Medication ?Instructions ?Recorded ?Confirmed ?Type albuterol sulfate 90 mcg/actuation 2 puff inhalation D AILY 02/04/25 08/11/25 History aerosol inhaler (Ventolin HFA) budesonide-formoterol HFA 80 2 puff inhalation DAILY 0 02/04/25 08/11/25 History mcg-4.5 mcg/actuation aerosol inhaler (Symbicort) vit no.95-ferrous 1 tablet PO DAILY 08/11/25 08/11/25 History fumarate 28 mg-folic acid 800 mcg tablet () Laboratory Tests 09/04/25 09/04/25 09/04/25 06:17 06:52 11:14 WBC 6.7 K/mm3 (4.5-10.0) RBC 4.13 L M/mm3 (4.2-5.4) Hgb 10.7 L g/dL (12.0-15.0) Hct 34.0 L % (37.0-47.0) MCV 82.3 fl (80-100) MCH 25.9 L pg (26-34) MCHC 31.5 L g/dl (32-36) RDW 14.5 % (11.5-14.5) Plt Count 216 k/mm3 (150-375) MPV 9.7 fl (7.4-10.4) Immature Gran % (Auto) 1.5 H % (0-0.5) Neut % (Auto) 63.3 % (45.5-73.1) Lymph % (Auto) 22.9 % (18.3-44.2) [place] % (Auto) 11.4 H % (2.6-8.5) Eos % (Auto) 0.6 % (0-4.4) Baso % (Auto) 0.3 % (0.2-1.2) Lymph # (Auto) 1.53 K/mm3 (0.9-3.2) [place] # (Auto) 0.8 H K/mm3 (0.1-0.6) Eos # (Auto) 0.0 K/mm3 (0-0.3) Baso # (Auto) 0.0 K/mm3 (0.0-0.1) Abs Immat Gran (auto) 0.10 H K/mm3 (0.00-0.031) Absolute Neuts (auto) 4.2 K/mm3 (1.3-6.7) Absolute Nucleated RBC 0.000 K/mm3 (0.0-0.012) Nucleated RBC % 0.0 % (0.0-0.2) POC Capillary Glucose 92 mg/dl 88 mg/dl (65-105) (65-105) Syphilis IgG/IgM Ab Non-reactive (Nonreactive) Blood Type B Positive Antibody Screen Negative 09/04/25 13:46 WBC Pending RBC Pending Hgb Pending Hct Pending MCV Pending MCH Pending MCHC Pending RDW Pending Plt Count Pending MPV Pending Immature Gran % (Auto) Pending Neut % (Auto) Pending Lymph % (Auto) Pending [place] % (Auto) Pending Eos % (Auto) Pending Baso % (Auto) Pending Lymph # (Auto) Pending [place] # (Auto) Pending Eos # (Auto) Pending Baso # (Auto) Pending Abs Immat Gran (auto) Pending Absolute Neuts (auto) Pending Absolute Nucleated RBC Pending Nucleated RBC % Pending POC Capillary Glucose Syphilis IgG/IgM Ab Blood Type Antibody Screen Patient hx anesthesia problems: none Family hx anesthesia problems: none Results Review: All pre-operative results and documents have been reviewed as part of the pre- operative evaluation. FORMERLY [facility], [facility] Past Medical History Medical History Encounter for supervision of normal in multigravida in second trimester related condition in second trimester Viral meningitis Anxiety Depression Surgical History Surgical History No pertinent past surgical history Family History Family History Grandparent Diabetes mellitus Cardiac arrhythmia Sibling Asthma Mother Rheumatoid arthritis Diabetes mellitus Social History Social History Smoking packs per day: 0.25 Smoking cigarettes per day: 5.0 Smoking status: Never smoker Tobacco type: e-cigarettes/vaping Second hand tobacco smoke exposure: No Alcohol intake: never Substance use: never Substance use type: marijuana Do You Feel Safe in your Home?: Yes Lack of Transportation: No Lack of Food: Never True Current Housing: I Have Housing Concerned About Future Housing: No Difficulty Paying Gas/Electric Bills: No Difficulty Paying for Meds: No Currently Unemployed: No Education: Grade School Difficulty w/ Childcare or Family Care: No Gender identity (if verbalized by the patient): Female Sexual Orientation (if Verbalized by the Patient): Straight or Heterosexual Spiritual care concerns: No Anes - Eval Final PreProcedure Day of Procedure 09/04/25 13:56 Patient weight: overweight Heart: regular rate and rhythm Lungs: clear to auscultation Neurological: alert and oriented ASA classification: II Emergent: no Anesthetic plan: proceed Anesthesia type and monitoring: regional epidural and standard monitoring Results Review: All pre-operative results and documents have been reviewed as part of the pre- operative evaluation. Informed Consent: The patient's anesthetic plan and its attendant risks and benefits were discussed with the patient/family/POA. Questions were solicited and answers provided to the satisfaction of the patient/family/POA.
[2025-09-04] MEDS: ceFAZolin 2 GM in SODIUM CHLORIDE 0.9% IV 50 ML 100 ML IVPB (14:02)
[2025-09-04] MEDS: BENZOCAINE 20% AER SPR (*SP) 56 GM CAN 1 SPRAY TOPICAL (15:57)
[2025-09-04] MEDS: WITCH HAZEL 40 PADS 1 PAD TOPICAL (15:57)
--- NOTE | 2025-09-04 16:00 | PC.NURSE ---
Patient transferred to post room #112 via bed. Support person present. Oriented to unit, room, information board, rooming in, admission packet and security measures. Patient verbalizes understanding.
[2025-09-04] MEDS: IRON SUCROSE COMPLEX 200 MG in SODIUM CHLORIDE 0.9% IV 100 ML 220 MG IVPB (18:02)
--- NOTE | 2025-09-04 18:53 | PM.OBPNVD ---
OB - PN: Subj Subjective Date/time seen: 09/04/25 18:53 Interval history: suction turned off SIDDHARTHA, minimal bleeding from around cuff, removed 90cc of water, and then SIDDHARTHA removed without difficulty, fundus firm continue to monitor OB - PN: Obj Data Labs 09/04/25 13:46 Labs: Laboratory Results - last 24 hr 09/04/25 09/04/25 09/04/25 06:17 06:52 11:14 WBC 6.7 RBC 4.13 L Hgb 10.7 L Hct 34.0 L MCV 82.3 MCH 25.9 L MCHC 31.5 L RDW 14.5 Plt Count 216 MPV 9.7 Immature Gran % (Auto) 1.5 H Neut % (Auto) 63.3 Lymph % (Auto) 22.9 [place] % (Auto) 11.4 H Eos % (Auto) 0.6 Baso % (Auto) 0.3 Lymph # (Auto) 1.53 [place] # (Auto) 0.8 H Eos # (Auto) 0.0 Baso # (Auto) 0.0 Abs Immat Gran (auto) 0.10 H Absolute Neuts (auto) 4.2 Absolute Nucleated RBC 0.000 Nucleated RBC % 0.0 POC Capillary Glucose 92 88 Syphilis IgG/IgM Ab Non-reactive Blood Type B Positive Antibody Screen Negative 09/04/25 13:46 WBC 8.3 RBC 4.04 L Hgb 10.4 L Hct 33.6 L MCV 83.2 MCH 25.7 L MCHC 31.0 L RDW 14.4 Plt Count 225 MPV 9.9 Immature Gran % (Auto) 1.6 H Neut % (Auto) 60.5 Lymph % (Auto) 24.6 [place] % (Auto) 12.7 H Eos % (Auto) 0.5 Baso % (Auto) 0.1 L Lymph # (Auto) 2.05 [place] # (Auto) 1.1 H Eos # (Auto) 0.0 Baso # (Auto) 0.0 Abs Immat Gran (auto) 0.13 H Absolute Neuts (auto) 5.0 Absolute Nucleated RBC 0.000 Nucleated RBC % 0.0 POC Capillary Glucose Syphilis IgG/IgM Ab Blood Type Antibody Screen OB - PN A/P Time Spent With Patient Time: Total time spent is greater than 50% in coordination of care (as documented) at patient's floor/unit and/or counseling patient:
[2025-09-04] MEDS: ACETAMINOPHEN 325 MG TABLET 650 MG PO (19:23)
[2025-09-04] MEDS: IBUPROFEN 600 MG TABLET PO (22:39)
[2025-09-05 00:15] VITALS: BP 112/71; PULSE 67; RESP 18; TEMP 36.8; O2SAT 99
[2025-09-05] MEDS: HYDROcodone/acetaminophen (*CRX) 5-325 MG TABLET 1 TAB PO ×2 (00:40→06:20)
[2025-09-05 04:30] LABS: Hematocrit 30.6 % (37.0-47.0); Hemoglobin 9.7 g/dL (12.0-15.0)
[2025-09-05 07:20] VITALS: BP 123/49; PULSE 76; RESP 18; TEMP 37.1
[2025-09-05 07:39] VITALS: BP 143/72; PULSE 67
[2025-09-05] MEDS: MULTIVIT/MIN/PREN/FOL AC/IRON TABLET 1 TAB PO (08:56)
[2025-09-05] MEDS: DOCUSATE SODIUM 100 MG CAPSULE PO ×2 (08:56→16:30)
[2025-09-05] MEDS: IBUPROFEN 600 MG TABLET PO ×2 (08:56→15:00)
--- NOTE | 2025-09-05 09:39 | P.PNOB_ITS ---
OB - PN: Subj Subjective Date/time seen: 09/05/25 09:39 Interval history: pp day 1 doing well bilateral salpingectomy tomorrow bottle feeding OB - PN: Obj Data Labs 09/05/25 04:24 Labs: Laboratory Results - last 24 hr 09/04/25 09/04/25 09/05/25 11:14 13:46 04:24 WBC 8.3 RBC 4.04 L Hgb 10.4 L 9.7 L Hct 33.6 L 30.6 L MCV 83.2 MCH 25.7 L MCHC 31.0 L RDW 14.4 Plt Count 225 MPV 9.9 Immature Gran % (Auto) 1.6 H Neut % (Auto) 60.5 Lymph % (Auto) 24.6 [place] % (Auto) 12.7 H Eos % (Auto) 0.5 Baso % (Auto) 0.1 L Lymph # (Auto) 2.05 [place] # (Auto) 1.1 H Eos # (Auto) 0.0 Baso # (Auto) 0.0 Abs Immat Gran (auto) 0.13 H Absolute Neuts (auto) 5.0 Absolute Nucleated RBC 0.000 Nucleated RBC % 0.0 POC Capillary Glucose 88 OB - PN A/P Plan day: 1 Plan: routine care Time Spent With Patient Time: Total time spent is greater than 50% in coordination of care (as documented) at patient's floor/unit and/or counseling patient: Review of Systems 2 Review of Systems: All systems reviewed & are unremarkable except as noted in HPI and below Exam 2 Const: General: cooperative, healthy appearing and comfortable Chest: Chest palpation & inspection: normal inspection of the chest Resp: Effort & Inspection: normal respiratory effort Cardio: Rate: regular rate GI: Other: soft Back/Spine/Pelvis: Back: no CVA tenderness
[2025-09-05] MEDS: ACETAMINOPHEN 325 MG TABLET 650 MG PO ×2 (12:13→20:52)
[2025-09-05 19:30] VITALS: BP 115/67; PULSE 63; RESP 16; TEMP 37.1; O2SAT 98
[2025-09-06] VITALS (10 sets, daily range): BP systolic 98–130; BP diastolic 50–87; PULSE 67–87; RESP 12–18; TEMP 36.2–37.2; O2SAT 92–99; BMI 28.8
[2025-09-06] MEDS: ACETAMINOPHEN 325 MG TABLET 650 MG PO ×3 (06:02→23:47)
--- NOTE | 2025-09-06 06:43 | P.PNAN_ITS ---
Anes - Initial Pre Proc Eval Procedure: Operation Date: 09/06/25 07:30 Proposed Procedures p Post- Tubal Ligation - Shawn Mcginnis MD Date/Time: 09/06/25 06:43 Surgeon: Shawn Mcginnis MD Pre Op Diagnosis: IOL Patient Data Age: 25 Gender: F Height: 1.65 m Weight: 78.5 kg Last Vital Signs Temp 36.5 C 09/06/25 06:39 Pulse 70 09/06/25 06:39 Resp 16 09/05/25 19:30 BP 125/81 09/06/25 06:39 Pulse Ox 98 09/06/25 06:39 O2 Del Method Room Air 09/06/25 06:39 Allergies Allergy/AdvReac Type Severity Reaction Status Date / Time terbutaline Allergy Severe Anaphylactic Verified 09/06/25 06:38 Shock amoxicillin (From Amoxil) AdvReac Palpitation Verified 09/06/25 06:38 s Home Medications ?Medication ?Instructions ?Recorded ?Confirmed ?Type albuterol sulfate 90 mcg/actuation 2 puff inhalation D AILY 02/04/25 08/11/25 History aerosol inhaler (Ventolin HFA) budesonide-formoterol HFA 80 2 puff inhalation DAILY 0 02/04/25 08/11/25 History mcg-4.5 mcg/actuation aerosol inhaler (Symbicort) vit no.95-ferrous 1 tablet PO DAILY 08/11/25 08/11/25 History fumarate 28 mg-folic acid 800 mcg tablet () Patient hx anesthesia problems: none Family hx anesthesia problems: none Results Review: All pre-operative results and documents have been reviewed as part of the pre- operative evaluation. [facility] Past Medical History Medical History (Updated 09/06/25 @ 06:44 by Ortega Pearson MD) Viral meningitis Anxiety Depression Surgical History Surgical History (Updated 09/06/25 @ 06:44 by Ortega Pearson MD) History of cholecystectomy Family History Family History Grandparent Diabetes mellitus Cardiac arrhythmia Sibling Asthma Mother Rheumatoid arthritis Diabetes mellitus Social History Social History (Updated 09/06/25 @ 06:44 by Ortega Pearson MD) Smoking packs per day: 0.25 Smoking cigarettes per day: 5.0 Tobacco type: e-cigarettes/vaping Second hand tobacco smoke exposure: No Alcohol intake: never Substance use: never Substance use type: marijuana Do You Feel Safe in your Home?: Yes Lack of Transportation: No Lack of Food: Never True Current Housing: I Have Housing Concerned About Future Housing: No Difficulty Paying Gas/Electric Bills: No Difficulty Paying for Meds: No Currently Unemployed: No Education: Grade School Difficulty w/ Childcare or Family Care: No Gender identity (if verbalized by the patient): Female Sexual Orientation (if Verbalized by the Patient): Straight or Heterosexual Spiritual care concerns: No Anes - Eval Final PreProcedure Day of Procedure 09/06/25 06:43 Patient weight: overweight Heart: regular rate and rhythm Lungs: clear to auscultation Airway: Mallampati scale class II Neurological: alert and oriented Last oral intake: >/= 8 hours ASA classification: II Emergent: no Anesthetic plan: proceed Anesthesia type and monitoring: general ETT and standard monitoring Results Review: All pre-operative results and documents have been reviewed as part of the pre- operative evaluation. Informed Consent: The patient's anesthetic plan and its attendant risks and benefits were discussed with the patient/family/POA. Questions were solicited and answers provided to the satisfaction of the patient/family/POA.
--- NOTE | 2025-09-06 07:16 | WPDHPUPDATE1 ---
History and Physical Update Update Date/Time: 09/06/25 07:16 to perform laparoscopic bilateral tubal ligation History and Physical has been reviewed, including an updated exam of the patient. There are NO changes in the patient's condition. Risks, benefits, and alternatives have been discussed and questions answered. Patient agrees to proceed with procedure.
--- NOTE | 2025-09-06 08:50 | S_PTH ---
PATIENT: Yuni Mejia LOC: [facility] U#:[id number] AGE/SX: 25/F ROOM: 287 RE09/04/[address]: Shawn Mcginnis MD : 2000 BED: 00 DIS: 09/07/2025 SPEC #: [id number] RECD: 09/06/25 09:38 STATUS: JON REHolly #: [id number] ANDREW: 09/06/25 08:[address]: Shawn Mcginnis DEPT: [facility] Surgical RECD BY: Elisa Mejia ENTERED: 09/06/25 09:39 SP TYPE: Surgical OTHR DR: UNKNOWN,DOCTOR Tissues: A - Fallopian Tube Single B - Fallopian Tube Single Procedures: Gross and Microscopic Level 2 Hematoxylin and Eosin Stain
[2025-09-06] MEDS: LACTATED RINGERS 1,000 ML 30 ML IV CONT ×2 (09:07→09:31)
--- NOTE | 2025-09-06 09:09 | P.OP_ITS ---
Procedure Note - Detailed Date of Procedure 09/06/25 Pre-op Diagnosis Unwanted fertility Post-op Diagnosis Same Procedure Performed tubal ligation via mini-laparotomy Surgeon Shawn Mcginnis MD Anesthesia General Indications Unwanted fertility Findings Normal fallopian tubes and ovaries. Description of Procedure The patient was taken to the operating room. She was prepped and draped in the dorsosupine position. A 4 cm incision was made underneath the umbilicus. It was carried down the level of fascia the knife. The fascia was incised the midline and extended laterally with cautery. Fallopian tubes were grasped and brought up to the open incision site. The window was created in the mesosalpinx. The tube had been grasped with [place] in the ampullary region. It was raised. Window made in the mesosalpinx with cautery. The proximal and distal aspects of the skeletonized tube were ligated with 0 Vicryl. Segment of the tube was resected with scissors. The cut ends were cauterized. This was done in bilateral fashion. The tubes were allowed a drop back into the abdomen a. The fascia closed 0 Vicryl running fashion. Subcuticular 4 Monocryl was used close the skin. It was covered with Dermabond. She tolerated the procedure well. She is taking coverage stable conditions. Sponge lap needle counts were correct x2. Estimated Blood Loss 10 Complications No immediate complications Condition Stable Disposition Floor
[2025-09-06] MEDS: fentaNYL CITRATE INJ (*CRX) 100 MCG/2 ML VIAL 25 MCG IV PUSH ×4 (09:29→09:44)
[2025-09-06] MEDS: IBUPROFEN 600 MG TABLET PO ×3 (10:52→23:47)
[2025-09-06] MEDS: HYDROcodone/acetaminophen (*CRX) 5-325 MG TABLET 1 TAB PO ×3 (10:53→18:03)
--- NOTE | 2025-09-06 11:06 | PC.NURSE ---
0620- Pt taken down to OR via OR [employer].
--- NOTE | 2025-09-06 11:07 | PC.NURSE ---
1015-Pt back from OR via OR nurse Sutton.
--- NOTE | 2025-09-06 12:34 | PC.NURSE ---
1234- This RN spoke with Dr. Mcginnis about pts request to stay another night due to post op pain from TL. Dr. Mcginnis stated that this was fine, d/c will be tomorrow 09/07/25
[2025-09-07 00:01] VITALS: BP 117/74; RESP 16; TEMP 36.6; O2SAT 97
[2025-09-07] MEDS: HYDROcodone/acetaminophen (*CRX) 5-325 MG TABLET 1 TAB PO ×4 (00:43→12:18)
[2025-09-07] MEDS: IBUPROFEN 600 MG TABLET PO (05:26)
[2025-09-07] MEDS: ACETAMINOPHEN 325 MG TABLET 650 MG PO ×2 (05:26→12:14)
[2025-09-07] MEDS: SIMETHICONE 80 MG TAB.CHEW PO (05:59)
[2025-09-07 07:40] VITALS: BP 117/75; PULSE 78; RESP 18; TEMP 36.8; O2SAT 96
--- NOTE | 2025-09-07 08:01 | PM.GYNPNOP ---
NEONATAL SPECIALIST - A/P Postoperative Procedures: Procedures Operation Date: 09/06/25 07:30 Actual Procedure Side Surgeon p Post- Tubal Ligation Bilateral Shawn Mcginnis MD Postoperative day: 1 Postoperative status: doing well Postoperative plan: see orders Time Spent With Patient Time: Total time spent is greater than 50% in coordination of care (as documented) at patient's floor/unit and/or counseling patient: Time with patient: less than 15 minutes NEONATAL SPECIALIST- PN:Subj Post-Op Subjective Date/time seen: 09/07/25 08:01 Interval history: pp day 1 doing well bilateral salpingectomy tomorrow bottle feeding Subjective: patient reports feeling better, patient has no complaints and pain is well controlled Exam Const: General: healthy appearing, comfortable and no acute distress Resp: Auscultation: clear to auscultation bilaterally, no rales, no rhonchi and no wheezes Cardio: Rate: regular rate Heart sounds: no click, no murmurs and no rubs GI: Inspection: non-distended Auscultation: normal bowel sounds Extrem: General: normal to inspection, no pedal edema and no calf tenderness NEONATAL SPECIALIST - PN: Obj Data Vital Signs Vital Signs: Vital Signs - 24 hr 09/06/25 09:07 09/06/25 09:20 09/06/25 09:35 Temperature 97.1 F L Pulse Rate 87 80 71 Respiratory Rate 16 16 14 Blood Pressure 98/50 L 102/64 126/87 Pulse Oximetry 96 98 99 Oxygen Delivery Simple Face Mask Simple Face Mask Room Air Oxygen Flow Rate 6 6 09/06/25 09:50 09/06/25 10:05 09/06/25 10:20 Temperature 98.9 F 98.9 F Pulse Rate 75 73 67 Respiratory Rate 12 14 16 Blood Pressure 127/79 130/80 129/76 Pulse Oximetry 92 93 93 Oxygen Delivery Room Air Room Air Oxygen Flow Rate 09/06/25 11:08 09/06/25 16:07 09/06/25 18:35 Temperature 97.9 F 98.1 F Pulse Rate 70 72 Respiratory Rate 18 16 Blood Pressure 114/66 124/79 Pulse Oximetry 97 97 96 Oxygen Delivery Oxygen Flow Rate 09/07/25 00:01 Temperature 98 F Pulse Rate Respiratory Rate 16 Blood Pressure 117/74 Pulse Oximetry 97 Oxygen Delivery Oxygen Flow Rate Intake/Output Intake/Output: Intake & Output 09/04/25 09/05/25 09/06/25 09/07/25 23:59 23:59 23:59 23:59 Intake Total 2600 240 840 Output Total 1125 Balance 1475 240 840 Meds/Results Medications: Active Medications Generic Name Dose Route Start Last Admin Trade Name Freq PRN Reason Stop Dose Admin Acetaminophen 650 mg 09/04/25 13:10 09/07/25 05:26 Acetaminophen 325 Mg Tablet PO 650 mg Q6H PRN Administration Mild Pain (1-3) or Headache Hydrocodone Bitart/Acetaminophen 1 tab 09/05/25 00:29 09/07/25 05:57 Hydrocodone/Acetaminophen (*Crx) 5-325 Mg Tablet PO 1 tab Q3HR PRN Administration Pain Rated 4-6 Albuterol 2 puff 09/07/25 09:00 Albuterol Sulfate (*Sp) Aerosol 1 Puff INHALATION DAILY MARTA Atropine Sulfate 0.4 mg 09/04/25 13:56 Atropine Sulfate 0.4 Mg/Ml Vial IV PUSH PRN PRN Bradycardia Benzocaine 1 spray 09/04/25 13:10 09/04/25 15:57 Benzocaine 20% Aer Spr (*Sp) 56 Gm Can TOPICAL 1 spray PRN PRN Administration Perineal Discomfort Dibucaine 1 applic 09/04/25 13:10 Dibucaine 1% Ointment 30 Gm Tube TOPICAL PRN PRN Hemorrhoids Docusate Sodium 100 mg 09/04/25 13:10 09/05/25 16:30 Docusate Sodium 100 Mg Capsule PO 100 mg BID PRN Administration Constipation Emollient Ointment 1 applic 09/04/25 13:10 Lanolin (Lansinoh) 7.5 Gm Cream TOPICAL PRN PRN Sore Nipples Ephedrine Sulfate 5 mg 09/04/25 13:56 Ephedrine Sulfate Inj 50 Mg/Ml Ampul IV PUSH Q5MIN PRN for hypotension (syst. < 100) Oxytocin/Sodium Chloride 30 units in 500 mls @ 125 mls/hr 09/04/25 06:13 09/04/25 18:00 Oxytocin 30 Units/Ns 500 Ml IV CONT Infused .Q4H PRN Infusion if not received in labor Ibuprofen 600 mg 09/04/25 13:10 09/07/25 05:26 Ibuprofen 600 Mg Tablet PO 600 mg Q6H PRN Administration Cramping Miscellaneous Information 1 each 09/06/25 00:01 Albuterol Inhaler Only Once A Day? Please Verify Frequency XX 10/06/25 00:00 CLARIFY MARTA Naloxone HCl 0.1 mg 09/04/25 13:56 Naloxone Hcl 0.4 Mg/Ml Vial IV PUSH ONCE PRN for resp. rate less than 10 Phenylephrine/Sodium Chloride 100 mcg 09/04/25 13:56 Phenylephrine 1,000 Mcg/10 Ml Syringe IV PUSH Q5MIN PRN for hypotension (syst. < 100) Polysaccharide Iron Complex 150 mg 09/04/25 17:00 09/06/25 17:07 Polysaccharide Iron Complex 150 Mg Capsule PO 150 mg BIDWM MARTA Administration Vit/Calcium/Iron/Folic Ac 1 tab 09/05/25 09:00 09/06/25 17:08 Multivit/Min/Pren/Fol Ac/Iron Tablet PO Not Given DAILY MARTA Fluticasone/Salmeterol 2 puff 09/05/25 20:00 09/06/25 17:08 Fluticasone/Salmeterol 45-21 Mcg Inhaler 1 Puff INHALATION Not Given Q12HRT MARTA Simethicone 80 mg 09/04/25 13:10 09/07/25 05:59 Simethicone 80 Mg Tab.Chew PO 80 mg Q2H PRN Administration Gas Witch Amy 1 pad 09/04/25 13:10 09/04/25 15:57 Witch Amy 40 Pads TOPICAL 1 pad PRN PRN Administration Perineal Discomfort Zolpidem Tartrate 5 mg 09/05/25 15:32 Zolpidem Tartrate (*Crx) 5 Mg Tablet PO HS PRN Insomnia Labs 09/05/25 04:24
--- NOTE | 2025-09-07 08:02 | PM.OBDSVD ---
DS: Admitting Diagnosis Discharge Date 08/07/2025 Admitting Diagnosis Term DS: Discharge Diagnosis Discharge Diagnosis (1) Term delivered: Code(s): O80 - Encounter for full-term uncomplicated delivery Status: Acute OB - DS: Summary OB Procedures : None OB Procedures Intrapartum: Spontaneous Vag Delivery OB Procedures: : P.P. tubal ligation Peripartum Data Laceration Description: None Episiotomy description: None Procedures: Procedures Operation Date: 09/06/25 07:30 Actual Procedure Side Surgeon p Post- Tubal Ligation Bilateral Shawn Mcginnis MD Time Spent with Patient Time attestation: Total time spent providing and/or coordinating discharge services: DS: Data Data Completed and Pending Pending studies at discharge: Pending at discharge 09/06/25 08:50 Surgical [PTH] Routine Discharge Plan Discharge Attending physician on discharge: Shawn Mcginnis Discharging Clinician: Ana Mcnamara Patient Disposition: Home Activity: pelvic rest Diet: regular Patient Instructions: Antibiotic Form Patient Language: Prydeinig Stand Alone Forms: General Discharge Information Follow-up/Referrals: Shawn Mcginnis MD [Physician, [employer]] Ana Mcnamara CNM [Certified Nurse Child Development Director, [employer]] Referral Note: 1 week post op kirk 4 week pp ana Hammond Medications: New polysaccharide iron complex 150 mg iron Capsule 150 mg PO BIDWM Qty: 60 0RF No Action albuterol sulfate [Ventolin HFA] 90 mcg/actuation HFA aerosol inhaler 2 puff inhalation DAILY budesonide-formoterol [Symbicort] 80-4.5 mcg/actuation HFA aerosol inhaler 2 puff inhalation DAILY PNV no.95-ferrous fumarate-FA [] 28 mg iron- 800 mcg tablet 1 tablet PO DAILY Date of admission: 09/04/25 05:54 Primary Care Provider: UNKNOWN,DOCTOR Admitting Provider: Shawn Mcginnis Attending physician on admission: Shawn Mcginnis Condition: Stable
[2025-09-07] MEDS: DOCUSATE SODIUM 100 MG CAPSULE PO (09:23)
[2025-09-07] MEDS: MULTIVIT/MIN/PREN/FOL AC/IRON TABLET 1 TAB PO (09:23)
[2025-09-07 09:30] VITALS: BP 123/82; PULSE 75; PULSE 90; RESP 18; O2SAT 97
[2025-09-07] MEDS: FLUTICASONE/SALMETEROL 45-21 MCG INHALER 1 PUFF 2 PUFF INHALATION (09:30)
--- NOTE | 2025-09-07 12:51 | PC.NURSE ---
8374- This RN contacted Dr. Mcginnis regarding pts [place] depression scale score of 6- same as at time of admission. Dr. Mcginnis stated to have pt call office with any issues with worsening depression or anxiety and to go to ER immediately in any SI or HI become apparent. Pt agreed to this plan. Care coordination here to offer pt resources as well.
--- NOTE | 2025-09-07 13:38 | PCCCNOTE ---
Met with pt. and FOB. This is their fifth child. They have all necessary supplies at home including car seat which is at bedside. They are current for WIC services for their other children, plan to add baby to services at discharge. Pt. denies any anxiety or depression feelings at this time. Encouraged pt. to follow up with Dr. Mcginnis if needed for these feelings. Per RN pt. also told this by Dr. Mcginnis. Pt. plans to see him in one week. resources provided. Pt. and FOB deny any other case management needs. Discharging home.
[2025-09-08 11:06] VITALS: BP 129/76; PULSE 71; RESP 20; TEMP 36.9; O2SAT 97
--- NOTE | 2025-10-06 10:17 | P.HP_ITS ---
H&P: HPI History of Present Illness Date/Time: 10/06/25 10:17 Chief Complaint: Unwanted fertility Narrative: This patient is a 25-year-old female with unwanted fertility. We agreed to perform tubal ligation. She understands risks, benefits, and alternatives. She has completed informed consent process and is ready to proceed. The patient understands the details of the procedure. The procedure has been explained in detail. She understands the risks. She understands that injuries may occur that result in hospitalization, more surgery, and severe illness. She understands risk of hemorrhage and infection. She denies any chest pain or shortness of breath. She denies any nausea, vomiting, fever, chills. Review of Systems Review of Systems: All systems reviewed & are unremarkable except as noted in HPI and below Constitutional: Constitutional: Denies chills, Denies fatigue, Denies fever(s) and Denies weakness Eyes: Eyes: Denies blurry vision, Denies change in vision, Denies loss of peripheral vision, Denies loss of vision, Denies other visual disturbances and Denies eye pain ENT: Denies vertigo, Denies dizziness, Denies hearing loss, Denies mouth pain, Denies nasal obstruction, Denies neck mass and Denies neck pain Cardiovascular: Cardiovascular: Denies chest pain, Denies diaphoresis, Denies syncope, Denies leg edema and Denies dyspnea Respiratory: Respiratory: Denies chest congestion, Denies cough, Denies hemoptysis, Denies dyspnea and Denies wheezing Gastrointestinal: Gastrointestinal: Denies abdominal pain, Denies constipation, Denies diarrhea, Denies nausea and Denies vomiting Genitourinary: Genitourinary: Denies hematuria, Denies change in libido, Denies nocturia, Denies genital lesions, Denies flank pain and Denies urinary urgency Musculoskeletal: Musculoskeletal: Denies abnormal gait, Denies back pain, Denies myalgias, Denies arthralgias, Denies joint swelling, Denies muscle weakness and Denies neck pain Integumentary/Breasts: Skin/Breast: Denies swelling, Denies breast pain, Denies breast mass, Denies dry skin, Denies nipple discharge, Denies unusual bruising and Denies jaundice Neurologic: Denies Neuro-related abnormal movements, Denies Abnormal speech present, Denies abnormal gait, Denies behavioral changes, Denies confusion, Denies vertigo, Denies dizziness, Denies syncope, Denies loss of vision, Denies memory loss, Denies convulsions and Denies weakness Psychiatric: Psychiatric: Denies abnormal sleep pattern, Denies behavioral changes, Denies change in libido, Denies confusion, Denies depression, Denies anhedonia and Denies memory loss Endocrine: Endocrine: Reports no additional endocrine complaints, Denies change in libido and Denies fatigue Hematologic/Lymphatic: Hematologic/Lymphatic: Reports no additional hematologic/lymphatic complaints Allergic/Immunologic: Allergic/Immunologic: Reports no additional allergic/immunologic complaints and Denies wheezing PMFSH Past Medical History Medical History (Updated 10/06/25 @ 10:19 by Shawn Mcginnis MD) Viral meningitis Anxiety Depression Surgical History Surgical History (Updated 09/06/25 @ 06:44 by Ortega Pearson MD) History of cholecystectomy Family History Family History Grandparent Diabetes mellitus Cardiac arrhythmia Sibling Asthma Mother Rheumatoid arthritis Diabetes mellitus Social History Social History (Updated 09/06/25 @ 06:44 by Ortega Pearson MD) Smoking packs per day: 0.25 Smoking cigarettes per day: 5.0 Smoking status: Former smoker Tobacco type: e-cigarettes/vaping Second hand tobacco smoke exposure: No Alcohol intake: never Substance use: never Substance use type: marijuana Lack of Transportation: No Lack of Food: Never True Current Housing: I Have Housing Concerned About Future Housing: No Difficulty Paying Gas/Electric Bills: No Difficulty Paying for Meds: No Currently Unemployed: No Education: Grade School Difficulty w/ Childcare or Family Care: YES Gender identity (if verbalized by the patient): Female Sexual Orientation (if Verbalized by the Patient): Straight or Heterosexual Spiritual care concerns: No Meds Home Medications and Allergies Home Medications ?Medication ?Instructions ?Recorded ?Confirmed ?Type albuterol sulfate 90 mcg/actuation 2 puff inhalation D AILY 02/04/25 08/11/25 History aerosol inhaler (Ventolin HFA) budesonide-formoterol HFA 80 2 puff inhalation DAILY 0 02/04/25 08/11/25 History mcg-4.5 mcg/actuation aerosol inhaler (Symbicort) vit no.95-ferrous 1 tablet PO DAILY 08/11/25 08/11/25 History fumarate 28 mg-folic acid 800 mcg tablet () polysaccharide iron complex 150 mg 150 mg PO BIDWM #60 caps 09/05/25 Rx iron capsule hydrocodone 5 mg-acetaminophen 325 1 - 2 tablet PO Q6H PRN pain #10 09/07/25 Rx mg tablet tabs Allergies Allergy/AdvReac Type Severity Reaction Status Date / Time terbutaline Allergy Severe Anaphylactic Verified 09/06/25 06:38 Shock amoxicillin (From Amoxil) AdvReac Palpitation Verified 09/06/25 06:38 s Exam Const: General: cooperative, healthy appearing, comfortable and no acute distress Orientation/consciousness: oriented to person, oriented to place and oriented to time HENMT: Head: normal to inspection Ears: external ears normal Face/Nose/Sinus: Normal external nose present and normal facial exam Face and sinus: normal facial exam Eyes: General: appearance normal, both eyes and all related structures Neck: Neck: normal visual inspection, trachea midline and supple Resp: Auscultation: clear to auscultation bilaterally, no crackles, no rales, no rhonchi and no wheezes Cardio: Rate: regular rate Rhythm: regular rhythm Heart sounds: no click, no murmurs and no rubs GI: GI Palp: No abdominal tenderness, No Soft to palpation, No Tenderness to palpation present (GI) and No Palpable mass present Auscultation: normal bowel sounds Skin: General skin exam: normal color and no rashes or lesions noted Neuro: General: oriented to person, oriented to place and oriented to time Extrem: General: normal to inspection, no joint enlargement, no clubbing, cyanosis or edema, no pedal edema and no calf tenderness Psych: Appearance: grossly normal Mental Status: mental status grossly normal Speech and movement: Normal speech and movement present Assessment and Plan Assessment and plan (1) Unwanted fertility: Code(s): Z30.09 - Encounter for other general counseling and advice on contraception Status: Acute Plan This patient is a 25-year-old female with unwanted fertility. We agreed to perform tubal ligation. She understands risks, benefits, and alternatives. She has completed informed consent process and is ready to proceed.
--- NOTE | 2025-10-06 10:44 | P.HP_ITS ---
H&P: HPI History of Present Illness Date/Time: 10/06/25 10:44 Chief Complaint: Contractions Narrative: 25-year-old multiparous female the 3rd trimester presented for contractions. She was observed for a period time. She made no cervical change. She was bleed not to be in labor. She showed reassuring heart tones. No vaginal bleeding. No abnormal vaginal discharge. She was discharged home with short- term follow-up Review of Systems Review of Systems: All systems reviewed & are unremarkable except as noted in HPI and below Constitutional: Constitutional: Denies chills, Denies fatigue, Denies fever(s) and Denies weakness Eyes: Eyes: Denies blurry vision, Denies change in vision, Denies loss of peripheral vision, Denies loss of vision, Denies other visual disturbances and Denies eye pain ENT: Denies vertigo, Denies dizziness, Denies hearing loss, Denies mouth pain, Denies nasal obstruction, Denies neck mass and Denies neck pain Cardiovascular: Cardiovascular: Denies chest pain, Denies diaphoresis, Denies syncope, Denies leg edema and Denies dyspnea Respiratory: Respiratory: Denies chest congestion, Denies cough, Denies hemoptysis, Denies dyspnea and Denies wheezing Gastrointestinal: Gastrointestinal: Denies abdominal pain, Denies constipation, Denies diarrhea, Denies nausea and Denies vomiting Genitourinary: Genitourinary: Denies hematuria, Denies change in libido, Denies nocturia, Denies genital lesions, Denies flank pain and Denies urinary urgency Musculoskeletal: Musculoskeletal: Denies abnormal gait, Denies back pain, Denies myalgias, Denies arthralgias, Denies joint swelling, Denies muscle weakness and Denies neck pain Integumentary/Breasts: Skin/Breast: Denies swelling, Denies breast pain, Denies breast mass, Denies dry skin, Denies nipple discharge, Denies unusual bruising and Denies jaundice Neurologic: Denies Neuro-related abnormal movements, Denies Abnormal speech present, Denies abnormal gait, Denies behavioral changes, Denies confusion, Denies vertigo, Denies dizziness, Denies syncope, Denies loss of vision, Denies memory loss, Denies convulsions and Denies weakness Psychiatric: Psychiatric: Denies abnormal sleep pattern, Denies behavioral changes, Denies change in libido, Denies confusion, Denies depression, Denies anhedonia and Denies memory loss Endocrine: Endocrine: Reports no additional endocrine complaints, Denies change in libido and Denies fatigue Hematologic/Lymphatic: Hematologic/Lymphatic: Reports no additional hematologic/lymphatic complaints Allergic/Immunologic: Allergic/Immunologic: Reports no additional allergic/immunologic complaints and Denies wheezing [facility] Past Medical History Medical History (Updated 10/06/25 @ 10:19 by Shawn Mcginnis MD) Viral meningitis Anxiety Depression Surgical History Surgical History (Updated 09/06/25 @ 06:44 by Ortega Pearson MD) History of cholecystectomy Family History Family History Grandparent Diabetes mellitus Cardiac arrhythmia Sibling Asthma Mother Rheumatoid arthritis Diabetes mellitus Social History Social History (Updated 09/06/25 @ 06:44 by Ortega Pearson MD) Smoking packs per day: 0.25 Smoking cigarettes per day: 5.0 Smoking status: Former smoker Tobacco type: e-cigarettes/vaping Second hand tobacco smoke exposure: No Alcohol intake: never Substance use: never Substance use type: marijuana Lack of Transportation: No Lack of Food: Never True Current Housing: I Have Housing Concerned About Future Housing: No Difficulty Paying Gas/Electric Bills: No Difficulty Paying for Meds: No Currently Unemployed: No Education: Grade School Difficulty w/ Childcare or Family Care: YES Gender identity (if verbalized by the patient): Female Sexual Orientation (if Verbalized by the Patient): Straight or Heterosexual Spiritual care concerns: No Meds Home Medications and Allergies Home Medications ?Medication ?Instructions ?Recorded ?Confirmed ?Type albuterol sulfate 90 mcg/actuation 2 puff inhalation D AILY 02/04/25 08/11/25 History aerosol inhaler (Ventolin HFA) budesonide-formoterol HFA 80 2 puff inhalation DAILY 0 02/04/25 08/11/25 History mcg-4.5 mcg/actuation aerosol inhaler (Symbicort) vit no.95-ferrous 1 tablet PO DAILY 08/11/25 08/11/25 History fumarate 28 mg-folic acid 800 mcg tablet () polysaccharide iron complex 150 mg 150 mg PO BIDWM #60 caps 09/05/25 Rx iron capsule hydrocodone 5 mg-acetaminophen 325 1 - 2 tablet PO Q6H PRN pain #10 09/07/25 Rx mg tablet tabs Allergies Allergy/AdvReac Type Severity Reaction Status Date / Time terbutaline Allergy Severe Anaphylactic Verified 09/06/25 06:38 Shock amoxicillin (From Amoxil) AdvReac Palpitation Verified 09/06/25 06:38 s Exam Const: General: cooperative, healthy appearing, comfortable and no acute distress Orientation/consciousness: oriented to person, oriented to place and oriented to time HENMT: Head: normal to inspection Ears: external ears normal Face/N ose/Sinus: Normal external nose present and normal facial exam Face and sinus: normal facial exam Eyes: General: appearance normal, both eyes and all related structures Neck: Neck: normal visual inspection, trachea midline and supple Resp: Auscultation: clear to auscultation bilaterally, no crackles, no rales, no rhonchi and no wheezes Cardio: Rate: regular rate Rhythm: regular rhythm Heart sounds: no click, no murmurs and no rubs GI: GI Palp: No abdominal tenderness, No Soft to palpation, No Tenderness to palpation present (GI) and No Palpable mass present Auscultation: normal bowel sounds Skin: General skin exam: normal color and no rashes or lesions noted Neuro: General: oriented to person, oriented to place and oriented to time Extrem: General: normal to inspection, no joint enlargement, no clubbing, cyanosis or edema, no pedal edema and no calf tenderness Psych: Appearance: grossly normal Mental Status: mental status grossly normal Speech and movement: Normal speech and movement present Assessment and Plan Assessment and plan (1) False labor: Code(s): O47.9 - False labor, unspecified Status: Acute Plan 25-year-old multiparous female the 3rd trimester presented for contractions. She was observed for a period time. She made no cervical change. She was bleed not to be in labor. She showed reassuring heart tones. No vaginal bleed ing. No abnormal vaginal discharge. She was discharged home with short-term follow-up
== END 2025-09-07 13:05 | disposition home or self-care (01) | DRG 541 ==
LOC: ANHLDR 05:58 → ANHOBPP 17:02 → ANHOB2 09-06 07:16
PROVIDERS: Admitting Provider Obstetrics & Gynecology; Referring Provider Advanced Practice Midwife; Visit Provider Obstetrics & Gynecology
PROC: 0UB70ZZ Excision of Bilateral Fallopian Tubes, Open Approach (ICD-10-PCS; CPT 58605; principal; 2025-09-06 07:30)
DX: O24.429 Gestational diabetes mellitus in childbirth, unspecified control (principal); Z37.0 Single live birth; Z3A.39 39 weeks gestation of pregnancy; O99.02 Anemia complicating childbirth; D64.9 Anemia, unspecified; O99.344 Other mental disorders complicating childbirth; F41.9 Anxiety disorder, unspecified; O43.113 Circumvallate placenta, third trimester; O72.1 Other immediate postpartum hemorrhage; Z30.2 Encounter for sterilization
CPT/HCPCS: 36415; 82948; 85014; 85018; 85025; 86593; 86850; 86900; 86901; 88302; 94640; J0690; A9270; J1100; J1756; J2003; J2250; J2405; J2590; J2704; J2795; J3010; J7120

== ENCOUNTER 2025-09-13 14:41 | Outpatient (CLI) | payer OTHER, SELFPAY ==
[2025-09-13] VITALS (7 sets, daily range): BP systolic 138–148; BP diastolic 86–100; PULSE 65–78
[2025-09-13 15:16] LABS: Hematocrit 38.9 % (37.0-47.0); Hemoglobin 11.9 g/dL (12.0-15.0); Immature Granulocyte Percent A 0.3 % (0-0.5); Immature Platelet Fraction Pct 1.2 % (0.9-11.2); Lymphocytes Absolute Auto 2.11 K/mm3 (0.9-3.2); Mean Corpuscular HGB Conc 30.6 g/dl (32-36); Mean Corpuscular Hemoglobin 25.5 pg (26-34); Mean Corpuscular Volume 83.3 fl (80-100); Nucleated Red Blood Cells Absolute Auto 0.000 K/mm3 (0.0-0.012); Nucleated Red Blood Cells Perc 0.0 % (0.0-0.2); Platelet Count Result 300 k/mm3 (150-375); Red Blood Count 4.67 M/mm3 (4.2-5.4); White Blood Count 7.3 K/mm3 (4.5-10.0)
[2025-09-13 15:24] LABS: Alanine Aminotransferase 39 U/L (6-35); Albumin Level 4.0 g/dL (3.5-5.1); Alkaline Phosphatase 131 U/L (38-126); Anion Gap 7 mmol/L (4-12); Aspartate Amino Transferase 34 U/L (14-36); Bilirubin,Total 0.5 mg/dL (0.2-1.3); Blood Urea Nitrogen 15 mg/dL (7-17); Calcium 9.0 mg/dL (8.4-10.2); Carbon Dioxide 23 mmol/L (22-30); Chloride 108 mmol/L (98-107); Estimated Glomerular Filt Rate > 60; Glucose 88 mg/dL (65-110); Potassium 4.0 mmol/L (3.4-5.0); Sodium 138 mmol/L (137-145); Total Protein 7.7 g/dL (6.3-8.2); Uric Acid 5.6 mg/dL (2.5-7.5)
--- NOTE | 2025-09-13 16:22 | PC.NURSE ---
Dr Mcginnis informed of labs, BP's while here and patient c/o headache. Orders for repeat labs on and patient to follow up in office on after labs are done.
[2025-09-13] MEDS: ACETAMINOPHEN 500 MG TABLET 1000 MG PO (16:40)
[2025-09-13] MEDS: IBUPROFEN 600 MG TABLET PO (16:41)
--- OUTSIDE RECORDS SUMMARY | 2025-09-14 00:20 | XMS_ITS | Continuity of Care Document ---
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 Plan of Treatment Reminders Order Date Submit Date Provider Last Modified By Organization Details Last Modified Time Details Appointments None record ed. Lab None record ed. Referral None record ed. Procedures None record ed. Surgeries None record ed. Imaging US, obstet sandra, follow -up 025 08/04/20 25 [email or web address] [address], [place], [address], 22:15:50 Medication Orders None record ed. Patient TargetsNo targets recorded. Patient InstructionsNo instructions recorded. Reason for Referral None Reported. Results Created Date Observation Date Name Description Value Unit Range Abnormal Flag Note LastModifiedBy Organization Detail LastModifiedTime 03/06/20 25 03/06/2025 [UNIT Y] ANEUP LOIDY NIPT fraction 5.7% normal Not Available [facility] [address], [place], [address], 03/06/2025 03:58:26 03/06/20 25 03/06/2025 [UNIT Y] ANEUP LOIDY NIPT sex chromosome aneuploidy NOT DETECT ED normal Not Available [facility] [address], [place], [address], 03/06/2025 03:58:26 03/06/20 25 03/06/2025 [UNIT Y] ANEUP LOIDY NIPT monosomy X LOW RISK <1 in 10,000 normal Not Available [facility] [address], [place], [address], 03/06/2025 03:58:26 03/06/20 25 03/06/2025 [UNIT Y] ANEUP LOIDY NIPT trisomy 13 LOW RISK <1 in 10,000 normal Not Available [facility] [address], [place], [address], 03/06/2025 03:58:26 03/06/20 25 03/06/2025 [UNIT Y] ANEUP LOIDY NIPT trisomy 18 LOW RISK <1 in 10,000 normal Not Available [facility] [address], [place], [address], 03/06/2025 03:58:26 03/06/20 25 03/06/2025 [UNIT Y] ANEUP LOIDY NIPT trisomy 21 LOW RISK <1 in 10,000 normal Not Available [facility] [address], [place], [address], 03/06/2025 03:58:26 03/06/20 25 03/06/2025 [UNIT Y] ANEUP LOIDY NIPT sex FEMALE normal Not Available [facility] [address], [place], [address], 03/06/2025 03:58:26 03/06/20 25 03/06/2025 [UNIT Y] ANEUP LOIDY NIPT gestation SINGLE TON normal Not Available [facility] [address], [place], [address], 03/06/2025 03:58:26 03/06/20 25 03/06/2025 [UNIT Y] ANEUP LOIDY NIPT for detailed report, see pdf See PDF normal Not Available [facility] [address], [place], [address], 03/06/2025 03:58:26 03/02/2003/02/2025 CULTU RE: URINE result report SEE RESULT S BELOW Test: Cultu re: Urine Speci men Sourc e: Urine - Clean Catch Speci men Type: Urine Speci men Date: 025 1455 Resul t Date: 025 2138 Resul t Statu s: Final resul t Abnor mal: No Resul ting Lab: [facility] [address] [facility] [address] Tel: CULTU RE ----- ----- ----- --- No growt h in 1 day (dete ction level of 10,00 0 colon ies / ml.) Not Available [facility] (Lab) [address], [place], [address], 03/03/2025 22:42:27 03/12/2003/12/2025 CULTU RE: URINE result report SEE RESULT S BELOW Test: Cultu re: Urine Speci men Sourc e: Urine - Clean Catch Speci men Type: Urine Speci men Date: 2024 1600 Resul t Date: 2024 0610 Resul t Statu s: Final resul t Abnor mal: No Resul ting Lab: [facility] [address] [facility] [address] Tel: CULTU RE ----- ----- ----- --- No growt h in 1 day (dete ction level of 10,00 0 colon ies / ml.) Not Available [facility] (Lab) [address], [place], [address], 03/14/2025 07:15:03 03/12/2003/12/2025 urina lysis , dipst ick Leukocytes ++ Not Available [address], [place], [address], 03/12/2025 16:45:06 03/12/2003/12/2025 urina lysis , dipst ick Protein + Not Available [facility] [address], [place], [address], 03/12/2025 16:45:06 03/12/20 25 03/12/2025 urina lysis , dipst ick pH 5 Not Available [facility] [address], [place], [address], 03/12/2025 16:45:06 03/12/20 25 03/12/2025 urina lysis , dipst ick Blood trace Not Available [facility] [address], [place], [address], 03/12/2025 16:45:06 03/12/20 25 03/12/2025 urina lysis , dipst ick Specific [place] 1.015 Not Available [facility] [address], [place], [address], 03/12/2025 16:45:06 03/12/20 25 03/12/2025 urina lysis , dipst ick Ketone +++ Not Available [facility] [address], [place], [address], 03/12/2025 16:45:06 03/31/20 25 03/31/2025 TSH, REFLE X FREE T4 TSH 0.42 uIU/m L 0.30-5 .33 Not Available [facility] (Lab) [address], [place], [address], 04/01/2025 03:05:12 03/31/20 25 03/31/2025 CULTU RE: URINE result report SEE RESULT S BELOW Test: Cultu re: Urine Speci men Sourc e: Urine Voide d Speci men Type: Urine Speci men Date: 1710 Resul t Date: 6 Resul t Statu s: Final resul t Abnor mal: No Resul ting Lab: [facility] [address] [facility] [address] [facility] [address] Tel: CULTU RE ----- ----- ----- --- Cultu re resul t (>=3 organ isms prese nt) indic ates possi ble conta minat ion. Repea t cultu re if sympt oms indic ate. Not Available [facility] (Lab) [address], [place], [address], 04/01/2025 23:59:19 03/31/20 25 03/31/2025 urina lysis , dipst ick Leukocytes +1 Not Available [address], [place], [address], 03/31/2025 09:23:13 03/31/20 25 03/31/2025 urina lysis , dipst ick Nitrite normal Not Available [facility] [address], [place], [address], 03/31/2025 09:23:13 03/31/20 25 03/31/2025 urina lysis , dipst ick Urobilinogen normal Not Available [facility] [address], [place], [address], 03/31/2025 09:23:13 03/31/20 25 03/31/2025 urina lysis , dipst ick Protein trace Not Available [facility] [address], [place], [address], 03/31/2025 09:23:13 03/31/20 25 03/31/2025 urina lysis , dipst ick pH 5 Not Available [facility] [address], [place], [address], 03/31/2025 09:23:13 03/31/20 25 03/31/2025 urina lysis , dipst ick Specific [place] 1.020 Not Available [facility] nita [address], [place], [address], 03/31/2025 09:23:13 03/31/20 25 03/31/2025 urina lysis , dipst ick Ketone normal Not Available [facility] [address], [place], [address], 03/31/2025 09:23:13 03/31/20 25 03/31/2025 urina lysis , dipst ick Bilirubin normal Not Available [facility] anna [address], [place], [address], 03/31/2025 09:23:13 03/31/20 25 03/31/2025 urina lysis , dipst ick Glucose normal Not Available [facility] [address], [place], [address], 03/31/2025 09:23:13 03/31/20 25 03/31/2025 urina lysis , dipst ick Appearance normal Not Available [facility] [address], [place], [address], 03/31/2025 09:23:13 03/31/20 25 03/31/2025 urina lysis , dipst ick Color normal Not Available [facility] [address], [place], [address], 03/31/2025 09:23:13 04/01/20 25 04/01/2025 [facility], DENIS bacterial vaginosis (bv), tma Negati ve negati ve Not Available [facility] (Lab) [address] [place], [address], 04/02/2025 14:08:45 04/01/20 25 04/01/2025 [facility] SWAB PLUS, DENIS mekhi species, tma Negati ve negati ve Not Available [facility] (Lab) [address], [address], 04/02/2025 14:08:45 04/01/20 25 04/01/2025 [facility] SWAB PLUS, DENIS mekhi glabrata, tma Negati ve negati ve Not Available [facility] (Lab) [address] [place], [address], 04/02/2025 14:08:45 04/01/20 25 04/01/2025 [facility] SWAB PLUS, DENIS trichomonas vaginalis, tma Negati ve negati ve Not Available [facility] (Lab) [address] [place], [address], 04/02/2025 14:08:45 04/01/20 25 04/01/2025 [facility] SWAB PLUS, DENIS chlamydia trachomatis, PCR Negati ve negati ve Not Available [facility] (Lab) [address] [place], [address], 04/02/2025 14:08:45 04/01/20 25 04/01/2025 [facility] SWAB PLUS, DENIS neisseria gonorrhoeae, PCR [...] , C. parap xi is, C. dubli ni is. Testi ng is perfo rmed using the Trans cript ion Media greg Ampli ficat ion metho d. Tests for Radha da glabr anaya, Trich omona s vagin sofía, Chlam ydia trach omati s, and Neiss eria gonor rhoea e are also inclu ded in this panel . Not Available [facility] (Lab) [address] [place], [address], 04/02/2025 14:08:45 04/22/20 25 04/22/2025 CULTU RE: URINE result report SEE RESULT S BELOW Test: Cultu re: Urine Speci men Sourc e: Urine Voide d Speci men Type: Urine Speci men Date: 2024 1314 Resul t Date: 2024 0322 Resul t Statu s: Final resul t Abnor mal: No Resul ting Lab: [facility] [address] [facility] [address] Tel: CULTU RE ----- ----- ----- --- No growt h in 1 day (dete ction level of 10,00 0 colon ies / ml.) Not Available [facility] (Lab) [address], [place], [address], 04/24/2025 04:28:01 04/22/20 25 04/22/2025 urina lysis , dipst ick Leukocytes + Not Available [facility] [address], [place], [address], 04/22/2025 10:01:51 04/22/20 25 04/22/2025 urina lysis , dipst ick Protein + Not Available [facility] [address], [place], [address], 04/22/2025 10:01:51 04/22/20 25 04/22/2025 urina lysis , dipst ick pH 8 Not Available [facility] [address], [place], [address], 04/22/2025 10:01:51 04/22/20 25 04/22/2025 urina lysis , dipst ick Blood + Not Available [facility] [address], [place], [address], 04/22/2025 10:01:51 04/22/20 25 04/22/2025 urina lysis , dipst ick Specific [place] 1.010 Not Available [facility] [address], [place], [address], 04/22/2025 10:01:51 04/22/20 25 04/22/2025 urina lysis , dipst ick Ketone + Not Available [place] [address], [place], [address], 04/22/2025 10:01:51 06/23/20 25 06/23/2025 HEMAT OCRIT (HCT) HCT 35.6 % (based on docume nted legal sex) 34.0-4 5.0 Not Available [facility] (Lab) [address], [place], [address], 06/24/2025 11:45:32 06/23/20 25 06/23/2025 HEMOG LOBIN (HGB) HGB 11.1 g/dL (based on docume nted legal sex) 11.6-1 5.4 low Not Available [facility] (Lab) [address] [place], [address], 06/24/2025 11:45:32 06/23/20 25 06/23/2025 GTT - GESTA ROLAND L SCREE N, ACOG OB glucose, 1 hour screen 180 mg/dL 70-135 high Not Available [facility] (Lab) [address] [place], [address], 06/24/2025 11:45:33 06/23/20 25 06/23/2025 HIV 1/2 ANTIG EN/AN TIBOD Y, REFLE X CONFI RMATI ON HIV antigen/anti body Nonrea ctive nonrea ctive HIV-1 antig en and HIV-1 /HIV- 2 antib odies were not detec greg. No labor atory evide nce of HIV infec tion. Not Available [facility] (Lab) [address], [place], [address], 06/24/2025 11:45:33 06/23/20 25 06/23/2025 RPR SCREE N, REFLE X TITER /CONF IRMAT ION RPR qualitative Nonrea ctive nonrea ctive Not Available [facility] (Lab) [address], [place], [address], 06/24/2025 11:45:34 07/21/20 25 07/21/2025 CULTU RE: URINE result report SEE RESULT S BELOW Test: Cultu re: Urine Speci men Sourc e: Urine - Clean Catch Speci men Type: Urine Speci men Date: 2024 1024 Resul t Date: 2024 0252 Resul t Statu s: Final resul t Abnor mal: No Resul ting Lab: [facility] [address] [facility] [address] Tel: CULTU RE ----- ----- ----- --- No growt h in 1 day (dete ction level of 10,00 0 colon ies / ml.) Not Available [facility] (Lab) [address], [place], [address], 07/23/2025 03:57:01 07/21/2007/21/2025 urina lysis , dipst ick Leukocytes ++ Not Available [facility] [address], [place], [address], 07/21/2025 11:03:04 07/21/20 25 07/21/2025 urina lysis , dipst ick Nitrite neg Not Available [address] [place], [address], 07/21/2025 11:03:04 07/21/20 25 07/21/2025 urina lysis , dipst ick Urobilinogen neg Not Available [facility] [address], [place], [address], 07/21/2025 11:03:04 07/21/20 25 07/21/2025 urina lysis , dipst ick Protein + Not Available [facility] [address], [place], [address], 07/21/2025 11:03:04 07/21/20 25 07/21/2025 urina lysis , dipst ick pH 5 Not Available [facility] [address], [place], [address], 07/21/2025 11:03:04 07/21/20 25 07/21/2025 urina lysis , dipst ick Specific [place] 1.030 Not Available [facility] [address], [place], [address], 07/21/2025 11:03:04 07/21/20 25 07/21/2025 urina lysis , dipst ick Ketone +++ Not Available [facility] [address], [place], [address], 07/21/2025 11:03:04 07/21/20 25 07/21/2025 urina lysis , dipst ick Bilirubin neg Not Available [facility] [address], [place], [address], 07/21/2025 11:03:04 07/21/20 25 07/21/2025 urina lysis , dipst ick Glucose neg Not Available [facility] [address], [place], [address], 07/21/2025 11:03:04 07/21/20 25 07/21/2025 urina lysis , dipst ick Appearance cloudy Not Available [address], [place], [address], 07/21/2025 11:03:04 07/21/20 25 07/21/2025 urina lysis , dipst ick Color dark Not Available [facility] [address], [place], [address], 07/21/2025 11:03:04 08/04/20 25 08/04/2025 CMP(C OMPRE HENSI VE METAB OLIC PANEL ) sodium 138 mmol/ L 133-14 6 Not Available [facility] (Lab) [address], [place], [address], 08/05/2025 13:39:18 08/04/20 25 08/04/2025 CMP(C OMPRE HENSI VE METAB OLIC PANEL ) potassium 4.0 mmol/ L 3.5-5. 1 Not Available [facility] (Lab) [address], [place], [address], 08/05/2025 13:39:18 08/04/20 25 08/04/2025 CMP(C OMPRE HENSI VE METAB OLIC PANEL ) chloride 105 mmol/ L 98-107 Not Available [facility] (Lab) [address], [place], [address], 08/05/2025 13:39:18 08/04/20 25 08/04/2025 CMP(C OMPRE HENSI VE METAB OLIC PANEL ) carbon dioxide 25 mmol/ L 21-31 Not Available [facility] (Lab) [address], [place], [address], 08/05/2025 13:39:18 08/04/20 25 08/04/2025 CMP(C OMPRE HENSI VE METAB OLIC PANEL ) anion gap 8 mmol/ L 4-13 Not Available [facility] (Lab) [address] [place], [address], 08/05/2025 13:39:18 08/04/20 25 08/04/2025 CMP(C OMPRE HENSI VE METAB OLIC PANEL ) blood urea nitrogen 10 mg/dL 7-25 Not Available [facility] (Lab) [address], [place], [address], 08/05/2025 13:39:18 08/04/20 25 08/04/2025 CMP(C OMPRE HENSI VE METAB OLIC PANEL ) creatinine 0.41 mg/dL 0.60-1 .30 low Not Available [facility] (Lab) [address], [place], [address], 08/05/2025 13:39:18 08/04/20 25 08/04/2025 CMP(C OMPRE HENSI VE METAB OLIC PANEL ) egfrcr (CKD-epi 2020) >90 mL/mi n/1.7 3_m2 >=60 Not Available [facility] (Lab) [address], [place], [address], 08/05/2025 13:39:18 08/04/20 25 08/04/2025 CMP(C OMPRE HENSI VE METAB OLIC PANEL ) calcium 8.9 mg/dL 8.3-10 .5 Not Available [facility] (Lab) [address], [place], [address], 08/05/2025 13:39:18 08/04/20 25 08/04/2025 CMP(C OMPRE HENSI VE METAB OLIC PANEL ) glucose 116 mg/dL 70-100 high Not Available [facility] (Lab) [address], [place], [address], 08/05/2025 13:39:18 08/04/20 25 08/04/2025 CMP(C OMPRE HENSI VE METAB OLIC PANEL ) protein, total 6.1 g/dL 6.4-8. 3 low Not Available [facility] (Lab) [address], [place], [address], 08/05/2025 13:39:18 08/04/20 25 08/04/2025 CMP(C OMPRE HENSI VE METAB OLIC PANEL ) albumin 3.5 g/dL 3.5-5. 0 Not Available [facility] (Lab) [address], [place], [address], 08/05/2025 13:39:18 08/04/20 25 08/04/2025 CMP(C OMPRE HENSI VE METAB OLIC PANEL ) ALT 11 units /L 9-43 Not Available [facility] (Lab) [address], [place], [address], 08/05/2025 13:39:18 08/04/20 25 08/04/2025 CMP(C OMPRE HENSI VE METAB OLIC PANEL ) alkaline phosphatase 98 units /L 34-104 Not Available [facility] (Lab) [address], [place], [address], 08/05/2025 13:39:18 08/04/20 25 08/04/2025 CMP(C OMPRE HENSI VE METAB OLIC PANEL ) AST 15 units /L 13-39 Not Available [facility] (Lab) [address], [place], [address], 08/05/2025 13:39:18 08/04/20 25 08/04/2025 CMP(C OMPRE HENSI VE METAB OLIC PANEL ) bilirubin, total 0.3 mg/dL 0.2-1. 2 Not Available [facility] (Lab) [address], [place], [address], 08/05/2025 13:39:18 08/04/20 25 08/04/2025 BILE ACIDS , TOTAL bile acids, total 4 umol/ L 0-10 Test Perfo rmed by: [facility] [address] [address] Not Available [facility] (Lab) [address], [place], [address], 08/05/2025 13:39:19 03/02/20 25 03/02/2025 US, obste tric, nucha l trans lucen cy No observ ation record ed. [email or web address] [facility] [address], [place], [address], 03/02/2025 13:35:30 03/02/20 25 03/02/2025 US, obste tric, nucha l trans lucen cy No observ ation record ed. [email or web address] [address] [address], [place], [address], 03/03/2025 14:08:39 03/08/20 25 03/08/2025 US, obste tric, 1st trime ster No observ ation record ed. [email or web address] [facility] [address], [place], [address], 03/08/2025 12:22:22 03/08/20 25 03/08/2025 US, obste tric, 1st trime ster No observ ation record ed. [email or web address] [address], [place], [address], 03/10/2025 15:03:13 04/01/20 25 03/24/2025 qamar r monit or No observ ation record ed. [address] [facility], [place], [address], 04/08/2025 12:36:45 04/01/20 25 03/22/2025 qamar r monit or No observ ation record ed. [address] (Pulmonary) [address] [place] [address] [address], [place], [address], 04/06/2025 08:59:34 04/20/20 25 04/20/2025 US, obste tric, limit ed No observ ation record ed. [email or web address] [facility] [address], [place], [address], 04/20/2025 17:39:30 04/20/20 25 04/20/2025 US, obste tric, follo w-up No observ ation record ed. [email or web address] [address], [place], [address], 04/23/2025 08:32:54 04/28/20 25 04/28/2025 US, obste tric, 2nd or 3rd trime ster No observ ation record ed. [email or web address] [facility] [address], [place], [address], 04/28/2025 17:48:42 04/28/20 25 04/28/2025 US, obste tric, 2nd or 3rd trime ster No observ ation record ed. [email or web address] [address], [place], [address], 05/04/2025 22:16:11 05/07/2005/07/2025 non-s tress test No observ ation record ed. [email or web address] [place] [address] [address], [place], [address], 05/28/2025 13:33:54 05/21/2005/21/2025 CT, head + brain , w/o contr ast No observ ation record ed. [email or web address], [place], [address], 05/24/2025 13:48:57 05/28/2005/28/2025 US, obste tric, follo w-up No observ [facility]ion record ed. [email or web address] [address], [place], [address], 05/28/2025 17:32:34 05/28/2005/28/2025 US, obste tric, follo w-up No observ ation record ed. [email or web address] [address], [place], [address], 06/01/2025 15:13:13 06/08/20 25 06/07/2025 US, obste tric, follo w-up No observ ation record ed. [email or web address] [facility] [address] [facility], [place], [address], 06/15/2025 10:53:46 07/07/20 25 07/07/2025 US, obste tric, follo w-up No observ ation record ed. [email or web address] [facility] [address], [place], [address], 07/07/2025 13:18:01 07/07/20 25 07/07/2025 US, obste tric, follo w-up No observ ation record ed. [email or web address] [address], [place], [address], 07/07/2025 11:29:37 08/04/20 25 08/04/2025 US, obste tric, follo w-up No observ ation record ed. [email or web address] [facility] [address], [place], [address], 08/04/2025 15:08:50 08/04/2008/04/2025 US, obste tric, follo w-up No observ ation record ed. [email or web address] [address] [address], [place], [address], 08/06/2025 10:41:50 08/11/2008/11/2025 non-s tress test No observ ation record ed. [email or web address] [facility] [address], [place], [address], 08/11/2025 17:37:52 08/11/20 non-s tress test No observ ation record ed. [email or web address] [facility] [address], [place], [address], 08/11/2025 17:38:11 08/15/2008/15/2025 non-s tress test No observ ation record ed. [address], [place], [address], 08/21/2025 10:18:57 08/15/2008/15/2025 US, obste tric, bioph ysica l profi le No observ ation record ed. [place] [id number] [facility] [address], [place], [address], 08/17/2025 10:50:53 08/18/2008/18/2025 US, obste tric, bioph ysica l profi le + non-s tress test No observ ation record ed. [email or web address] [facility] [address], [place], [address], 08/18/2025 10:21:39 08/18/2008/18/2025 US, obste tric, bioph ysica l profi le + non-s tress test No observ ation record ed. [email or web address] [address], [place], [address], 08/18/2025 10:35:44 08/18/2008/18/2025 non-s tress test No observ ation record ed. [email or web address] [facility] [address], [place], [address], 08/18/2025 17:34:03 08/18/20 non-s tress test No observ ation record ed. [email or web address] [facility] [address], [place], [address], 08/18/2025 16:06:09 08/25/20 25 08/25/2025 US, obste tric, bioph ysica l profi le + non-s tress test No observ ation record ed. [email or web address] [facility] [address], [place], [address], 08/25/2025 18:52:06 08/25/2008/25/2025 US, obste tric, follo w-up No observ ation record ed. [email or web address] [facility] [address], [place], [address], 08/25/2025 15:47:28 08/25/2008/25/2025 non-s tress test No observ ation record ed. [address], [place], [address], 08/25/2025 18:12:15 08/25/20 non-s tress test No observ ation record ed. [address], [place], [address], 08/25/2025 17:21:19 08/30/2008/30/2025 imagi ng/di agnos tic resul t No observ ation record ed. [address] [facility], [place], [address], 08/31/2025 18:17:32 09/01/20 25 09/01/2025 non-s tress test No observ ation record ed. [address] [facility], [place], [address], 09/13/2025 11:32:22 09/01/20 25 09/01/2025 US, obste tric No observ ation record ed. [address], [place], [address], 09/02/2025 15:56:01 09/01/20 25 09/01/2025 non-s tress test No observ ation record ed. [address], [place], [address], 09/02/2025 14:32:38 Result Notes None recorded. Problems Name Problem SNOMED Code Status Onset Date Resolution Date Notes Provider Name and Address Organization Details Recorded Time Hypereme sis [id number] Completed phenerga n now prn Asia Baileyrafakandyganeshpetrona arias rachel [facility] 2 16:43:51 Anxiety in pregnanc y [id number] Completed will continue to monitor Asia Baileyrafakandyganeshpetrona arias rachel [facility] 2 16:43:51 Past pregnanc y history of gestatio nal diabetes mellitus [id number] Completed Early 1 hr GTT @ 20wks 11/03 APPT Asia Baileyrafakandyganeshpetrona arias [facility] 2 16:43:51 Spinal muscular atrophy [id number] Completed Carrier - Not in contact with FOB. Asia Luis ramos [facility] 2 16:43:51 Anxiety [id number] Completed prozac Karina ramos [facility] 4 11:00:46 Nausea [id number] Completed d/c zofran pump 11/08 per pt request Karina ramos [facility] 4 11:00:46 Postpart um hemorrha ge [id number] Completed 2017 with d&c Karina ramos [facility] 4 11:00:46 Normal pregnanc y in multigra jessy [id number] 92820 Completed 201907/05/2021 Encounte r for supervis ion of other normal pregnanc y, 3rd trimeste r;Record ed Elsewher e: No Locat ion: Jaelyn castillo [facility] S ource: EHR Fishing Guide yvrose: N Practi ce ID: [id number] Gigi lable Time: 10:45:00 AM Karina ramos [facility] 1 10:15:27 Gestatio n period, 37 weeks [id number] Completed 201907/05/2021 37 weeks gestatio n of pregnanc y;Record ed Elsewher e: No Locat ion: [facility] S ource: EHR Fishing Guide yvrose: N Practi ce ID: [id number] Gigi lable Time: 09:00:00 AM Karina ramos [facility] 10:15:[address] Concept Completed 201907/05/2021 Matern care for abnlt fetl hrt rate or rhym, 3rd tri, unsp;Rec orded Elsewher e: No Locat ion: [facility] S ource: EHR Fishing Guide yvrose: N Practi ce ID: [id number] Gigi lable Time: 08:45:00 AM Karina ramos [facility] 10:15:29 Gestatio nal diabetes mellitus [id number] Completed 201907/05/2021 Gestatio nal diabetes mellitus in pregnanc y, diet controll ed;Recor ded Elsewher e: No Locat ion: [facility] S ource: EHR Fishing Guide yvrose: N Practi ce ID: 0001 Gigi lable Time: 11:45:00 AM Karina ramos, [facility] 10:15:25 Gestatio n period, 38 weeks [id number] Completed 201907/05/2021 38 weeks gestatio n of pregnanc y;Record ed Elsewher e: No Locat ion: [facility] S ource: EHR Fishing Guide yvrose: N Practi ce ID: [id number] Gigi lable Time: 11:30:00 AM Karina ramos [facility] 10:15:13 Amenorrh ea 08547939 Completed 202007/10/2021 Tammi ramos [facility] 13:08:35 Pregnanc y 12096097 Completed 202003/29/2022 Karina Burroughs null, [facility] 4 11:00:49 Pregnanc y 54159339 Completed 202304/22/2024 Karinasofia Burroughs null, [facility] 4 11:00:49 Headache 98312127 Active 2023 Karina Heike null, [facility] 5 16:19:28 Pregnanc y 91826236 Active 2023 Karina Burroughs null, [facility] 5 16:19:28 Uncompli cated moderate persiste nt asthma 927326427 Active 2024 albutero l prn Shawn Bradley MD [address], [place], [address], [facility] 5 13:08:36 Anxiety 13000943 Active 2024 sertrali ne started 03/02/25 changed to prozac 10 on Shawn Bradley MD [address], [place], [address], [facility] 5 17:05:48 Nausea and vomiting 40389750 Active 2024 Shawn Bradley MD [address], [place], [address], [facility] 5 13:20:27 Placenta circumva llata 6212107 Active 2024 32wk growth Ryann Castro null, [facility] 5 09:44:35 Frequent headache 665882719 Active 2024 transpor t to [facility] 05/21, discharg e 05/23 [facility] referral faxed 05/24 [facility] KAJAL Pittman [facility] unable to see pt due to insuranc e 05/25 [facility] 07/05/25 Level US & Consult (see [facility]FM consult zayas recommen dations ) regimen prn Imitrex 50mg for acute migraine , vitamin B2 (Ribofla mesfin) 400mg, Coenzyme q10 300mg and magnesiu m oxide 200 to 600mg daily. minimize use of Excedrin or Tylenol to no more than 2-3 times a week. Ryann Matthew ramos [facility] 10:55:26 Abnormal placenta affectin g manageme nt of mother 05143764 Active 2024 [facility] serial growth us Ryann Matthew ramos [facility] 10:46:25 Iron deficien cy anemia 14354334 Active 2024 [facility] tx venofer 200mg x1 HGB 10.6 Ryann Matthew ramos [facility] 5 15:21:25 Gestatio nal diabetes mellitus 61535833 Active 2024 checking bs QID - ruled in GDM Referral faxed to [facility] 07/07 Ryann Matthew ramos [facility] 14:36:52 Notes:Order faxed to [facility] access 08/10 for PICC line, and home health already caring for pt. Vladimir RN at [phone] Problem Notes None recorded. Procedures Surgical History Date Name Laterality Status Provider Name and Address Organization Details Recorded Time 025 SALPINGECTOMY, LAPAROSCOPIC (SURG) completed Not Available [facility] 09/06/2025 11:19:17 025 Date of Last Pap Smear completed Karina Burroughs [facility] 01/28/2025 11:19:42 024 Nexplanon Removal completed Shawn Bradely MD [address], [place], [address], [facility] 08/05/2024 15:09:58 024 Control Implant Insertion completed Anju Mcnamara CNM [address], [place], [address], [facility] 05/08/2024 17:59:34 024 cholecystectomy completed Karina Burroughs [facility] 03/31/2025 09:18:57 018 Dilation and Curettage completed Karina Burroughs [facility] 07/05/2021 10:17:50 Imaging Results None recorded. Procedure Notes None recorded. Medical Equipment None Reported. Allergies Allergen ID Allergen Name Allergen Category Reaction Reaction Severity Criticality Documentation Date Start Date Code Code System Note Provider Name and Address Organization Details Recorded Time 01224 terbutali ne medicatio n anaphylax is Not available Not available 01/27/20252021 37023 RxNorm Karina Burroughs [facility], [facility] 16:19:27 56295 amoxicill in medicatio n Not available Not available Not available 09/10/2025 723 RxNorm Not Available [employer] External Data Service - prod 16:39:37 12297 terbinafi ne medicatio n anaphylax is Not available [facility] 09/10/20252024 58387 RxNorm Not Available [employer] External Data Service - prod 16:40:54 Medications Name Sig Start Date Stop Date [...] 1 TABLET BY MOUTH EVERY 6 HOURS active Not Available Not Available No t Available ondansetr on HCl 2 mg/mL intraveno us solution 05/08 completed Not Available Not Available Not Available ondansetr on HCl 4 mg tablet TAKE 1 TABLET BY MOUTH EVERY 8 HOURS NEEDED active Not Available Not Available [...] completed Not Available Not Available Not Available famotidin e 20 mg tablet TAKE 1 TABLET BY MOUTH TWICE DAILY FOR 10 DAYS active Not Available Not Available No t Available magnesium oxide 400 mg (241.3 mg [...] completed Not Available Not Available Not Available iFerex 150 150 mg iron capsule TAKE 1 CAPSULE BY MOUTH TWICE DAILY WITH MEALS active Not Available Not Available No t Available ibuprofen 600 mg tablet TAKE 1 [...] mg)/mL oral drops 07/05 completed Prescrib ed Jeriher e: Yes Loca tion: [facility] odify By: [email or web address] Jesus r DateTime : 01/14/20 10:45:00 AM Not [...] n (supplie d by office) insert lot [id number] Exp 01/2026 Not Available Not Available Not Available 28 mg iron-800 mcg tablet 07/05 completed [facility] Yes Loca tion: [facility] odify By: prabhjot barrera DateTime : 01/14/20 10:45:00 AM Not Available Not Available Not Available lidocaine 5 % topical ointment APPLY OINTMENT EXTERNAL LY TO RIBS THREE TIMES DAILY NEEDED 01/14 completed Not Available Not Available Not Available 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 08/04/2025 15:09:59 Social History Question Answer Notes LastModified by Organizat ion Details LastModified Time Tobacco Smoking Status Former Smoker Karina ramos, [facility] 07/05/2021 09:06:21 If You Are , What Was Your Level Of Alcohol Consumption Prior To ? Occasional [email or web address] Information not available 03/31/2025 Are You Blind Or Do You Have Difficulty Seeing? No [email or web address] Information not available 07/05/2021 What Is Your Level Of Caffeine Consumption? Heavy [email or web address] Information not available 07/05/2021 In The 14 Days Before Symptom Onset, Have You Had Close Contact With A Laboratory-confir med COVID-19 While That Case Was Ill? No [email or web address] Information not available 07/05/2021 In The 14 Days Before Symptom Onset, Have You Had Close Contact With A Person Who Is Under Investigation For COVID-19 While That Person Was Ill? No [email or web address] Information not available 07/05/2021 Have You Been To An Area Known To Be High Risk For COVID-19? No [email or web address] Information not available 07/05/2021 Are You Deaf Or Do You Have Serious Difficulty Hearing? No [email or web address] Information not available 07/05/2021 What Type Of Diet Are You Following? REGULAR [email or web address] Information not available 07/05/2021 Which Illicit Or Recreational Drugs Have You Used? Marijuana [email or web address] Information not available 07/05/2021 Have You Ever Been Counseled For Unhealthy Alcohol Use? No [email or web address] Information not available 07/05/2021 Do You Use Your Seat Belt Or Car Seat Routinely? Yes [email or web address] Information not available 07/05/2021 Do You Have Smoke And Carbon Monoxide Detectors In Your Home? Yes [email or web address] Information not available 07/05/2021 Do You Use Sunscreen Routinely? Yes [email or web address] Information not available 07/05/2021 Has Tobacco Cessation Counseling Been Provided? No [email or web address] Information not available 07/05/2021 Have You Used IV Drugs? No [email or web address] Information not available 07/05/2021 Do You Have Difficulty Walking Or Climbing Stairs? No Information not available 12/06/2021 Sex: Unknown Functional Status Question Answer Note LastModified by Organizat ion Details LastModified Time Do you use any illicit or recreational drugs? Yes [email or web address] Information not available 07/05/2021 Do you or have you ever used any other forms of tobacco or nicotine? Yes [email or web address] Information not available 07/05/2021 What is your level of alcohol consumption? None [email or web address] Information not available 03/31/2025 Do you or have you ever used smokeless tobacco? Never used smokeless tobacco [email or web address] Information not available 07/05/2021 Are you able to walk independently without assistance or assistive devices? YESWOREST Information not available 07/05/2021 Are you able to care for yourself independently? Yes [email or web address] Information not available 12/06/2021 Do you have difficulty dressing, bathing, grooming, or toileting? No [email or web address] Information not available 12/06/2021 Do you or have you ever used e-cigarettes or vape? Current user of electronic cigarettes [email or web address] Information not available 07/05/2021 What is your exercise level? Occasional [email or web address] Information not available 07/05/2021 Mental Status Question Answer Note LastModified by Organization D etails LastModified Time Do you feel stressed (tense, restless, nervous, or anxious, or unable to sleep at night)? 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 Z3A.30 6588204 [id number] Anju Mcnamara CNM [facility] [address] [address] 07/07/2025 10:14:33 07/07/2025 11:38:54 Gestation period, 30 weeks 81435292 Z3A.30 6853116 cont pnv Nausea 688659339 R11.0 17793 Gestationa l diabetes mellitus 61507254 O24.419 90934168 [id number] Anju Mcnamara CNM [facility] [address],[place] [address] 07/21/2025 09:28:54 07/21/2025 12:36:06 Pain in pelvis 01977194 R10.2 283134 Gestation period, 32 weeks 0500965 Z3A.32 4733635 [id number] Shawn Bradley MD [facility] [address],[place] [address] 08/04/2025 14:02:59 08/04/2025 15:06:33 Gestational diabetes mellitus 43642601 O24.410 O43.103 O43.113 Z3A.34 05773587 [id number] Anju Mcnamara CNM [facility] [address],[place] [address] 08/04/2025 14:21:57 08/04/2025 15:26:03 Gestation period, 34 weeks 41297107 Z3A.34 9277372 Pruritic d isorder of skin 0612972336 L29.9 71853 plan labs today, ursadiol BID Health Concerns Section Related Observation LastModified by Organization Detai ls LastModified Time None Recorded Concern Status LastModified by Organization Details LastModified Time None Recorded Payers Encounter Date Sequence Insurance Name Policy Number Policy Roberts Covered Member ID Roberts Member ID Guarantor Name 08/04/2025 1 [facility] (MEDICAID HMO) [id number] Yuni Mejia [id number] Yuni Mejia Notes Date Note Type Note Provider Name and Address Organization Details Recorded Time 08/04/2025 text/html Generic HPI TemplateReported by Patient [address], [place], [address], [facility] 08/04/2025 15:23:50 OBGyn Episode Ob Episode Information Episode Created Date Number of Fetuses Patient Bloodtype Patient rh Status Prepregnancy Weight lbs Domestic Partner Domestic Partner Phone Father Name Emotional Support Teacher Status 03/02/20 25 1 B Positive 164 OPEN Fetus Data First Name Last Name Admitted to NICU Weight (g) Sex Living Outcome Pediatric Complications Fetus ID Race Codes Race Delivery Type [id number] Problems Problem Notes SDH form completed 5GI consult Tachycardia Holter monitor 72 order- pt sent back on 03-27-25 Cardiology referral faxed per Dr Martínez office calling pt 04/21 to schedule consult scheduled 05/11 11:15AM Problem Name Start Date End Date Resolution Snomed Code Not e Uncomplicated moderate persistent asthma 03/02/2025 [id number] albuterol prn Abnormal placenta affecting management of mother 05/04/2025 85586973 [facility]CI serial grow th us Iron deficiency anemia 05/25/2025 85416923 [facility] tx [place] 200mg x1 HGB 10.6 Nausea and vomiting 03/02/2025 15590536 Anxiety 03/02/2025 10153708 sertralin e started 03/02/25 changed to prozac 10 on Gestational diabetes mellitus 07/08/2025 93982706 checking bs QID - ruled in GDM Referral faxed to [facility] 07/07 Frequent headache 05/03/2025 [id number] [place] to [facility] 05/21, discharge 05/23 [facility] referral faxed 05/24 [facility] Neurology consult pending per KAJAL Pittman [facility] unable [facility] pt due to insurance 05/25[facility] 07/05/25 Level US & Consult (see [facility] consult zayas recommendations ) regimen prn Imitrex 50mg for acute migraine, vitamin B2 (Riboflavin) 400mg, Coenzyme q10 300mg and magnesium oxide 200 to 600mg daily. minimize use of Excedrin or Tylenol to no more than 2-3 times a week. 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 rfilled zofran, precautions and education f/u [...] Type Weight in lbs Pre/Post Dialysis Refused 168.378757255661 BP Diastolic BP Location Tested BP Systolic [...] Type Weight in lbs Pre/Post Dialysis Refused 169.852234961454 BP Diastolic BP Location Tested BP Systolic [...] Weight in lbs Pre/Post Dialysis Refused Weight 175.041412115040 BP Diastolic BP Location Tested BP Systolic [...] Weight in lbs Pre/Post Dialysis Refused Weight 182.183098435259 BP Diastolic BP Location Tested BP Systolic [...] Weight in lbs Pre/Post Dialysis Refused Weight 181.942922743301 BP Diastolic BP Location Tested BP Systolic BP Type 73 L arm 131 sitting Fetus Heart Rate Present Fetus Movement A Yes Comments viral URI testied neg at urg ent care, nausea resolved, efw 68%, +FM plan education and precautions f/u 2 weeks diagnosed GDM, 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, gave list reviewed protein vs carb Flowsheet Date 07/21/2025 Gibson Score Blood Edema Fundus Height Fundus Units Glucose Ketones Leukocytes Nitrite Labor Signs Protein Cervic Dilation Cervic Effacement Cervic Station Type Weight in lbs Pre/Post Dialysis Refused Weight 181.590868858317 BP Diastolic BP Location Tested BP Systolic BP Type 78 L arm 127 sitting Fetus Heart Rate Present A 150 Fetus Movement A Yes Comments rpt urine culture +FM review ed blood sugars, meets with scraper burrer today, precautions and education f/u 2 weeks [...] Weight in lbs Pre/Post Dialysis Refused Weight 181.737004991262 BP Diastolic BP Location Tested BP Systolic [...] Weight in lbs Pre/Post Dialysis Refused Weight 183.762628760043 BP Diastolic BP Location Tested BP Systolic [...] Type Weight in lbs Pre/Post Dialysis Refused 184.622938097279 BP Diastolic BP Location Tested BP Systolic BP Type 77 L arm 116 sitting Fetus Heart Rate Present Fetus Movement A Yes Comments increase to 5 units of nph a t night, discussed reducing bread increase protein, will have rn call saturday +FM, gbs collected. f/u one week precautions and education Flowsheet Date 08/18/2025 Gibson Score Blood Edema Fundus Height Fundus Units Glucose Ketones Leukocytes Nitrite Labor Signs Protein Cervic Dilation Cervic Effacement Cervic Station Type Weight in lbs Pre/Post Dialysis Refused 184.146294338054 BP Diastolic BP Location Tested BP Systolic [...] Type Weight in lbs Pre/Post Dialysis Refused 184.536613328743 BP Diastolic BP Location Tested BP Systolic [...] Weight in lbs Pre/Post Dialysis Refused Weight 184.971949646053 BP Diastolic BP Location Tested BP Systolic BP Type 72 L arm 108 sitting Fetus Heart Rate Present Fetus Movement Comments Flowsheet Date 09/04/2025 Gibson Score Blood Edema Fundus Height Fundus Units Glucose Ketones Leukocytes Nitrite Labor Signs Protein Cervic Dilation Cervic Effacement Cervic Station Type Weight in lbs Pre/Post Dialysis Refused BP Diastolic BP Location Tested BP Systolic BP Type Fetus Heart Rate Present Fetus Movement Comments Flowsheet Date 09/06/2025 Gibson Score Blood Edema Fundus Height Fundus Units Glucose Ketones Leukocytes Nitrite Labor Signs Protein Cervic Dilation Cervic Effacement Cervic Station Type Weight in lbs Pre/Post Dialysis Refused BP Diastolic BP Location Tested BP Systolic BP Type Fetus Heart Rate Present Fetus Movement Comments Flowsheet Date 09/13/2025 Gibson Score Blood Edema Fundus Height Fundus [...]
--- OUTSIDE RECORDS SUMMARY | 2025-09-14 00:20 | XMS_ITS | Continuity of Care Document ---
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 Plan of Treatment Reminders Order Date Submit Date Provider Last Modified By Organization Details Last Modified Time Details Appointments None record ed. Lab None record ed. Referral None record ed. Procedures None record ed. Surgeries None record ed. Imaging US, obstet sandra, follow -up 025 07/07/20 25 [email or web address] [address], [address], [place], [address], 16:21:32 Medication Orders None record ed. Patient TargetsNo targets recorded. Patient InstructionsNo instructions recorded. Reason for Referral None Reported. Results Created Date Observation Date Name Description Value Unit Range Abnormal Flag Note LastModifiedBy Organization Detail LastModifiedTime 03/06/2003/06/2025 [UNIT Y] ANEUP LOIDY NIPT fraction 5.7% normal Not Available [facility] [address], [place], [address], 03/06/2025 03:58:26 03/06/20 25 03/06/2025 [UNIT Y] ANEUP LOIDY NIPT sex chromosome aneuploidy NOT DETECT ED normal Not Available [facility] [address], [place], [address], 03/06/2025 03:58:26 03/06/20 25 03/06/2025 [UNIT Y] ANEUP LOIDY NIPT monosomy X LOW RISK <1 in 10,000 normal Not Available [facility] [address], [place], [address], 03/06/2025 03:58:26 03/06/20 25 03/06/2025 [UNIT Y] ANEUP LOIDY NIPT trisomy 13 LOW RISK <1 in 10,000 normal Not Available [facility] [address], [place], [address], 03/06/2025 03:58:26 03/06/20 25 03/06/2025 [UNIT Y] ANEUP LOIDY NIPT trisomy 18 LOW RISK <1 in 10,000 normal Not Available [facility] [address], [place], [address], 03/06/2025 03:58:26 03/06/20 25 03/06/2025 [UNIT Y] ANEUP LOIDY NIPT trisomy 21 LOW RISK <1 in 10,000 normal Not Available [facility] [address], [place], [address], 03/06/2025 03:58:26 03/06/20 25 03/06/2025 [UNIT Y] ANEUP LOIDY NIPT sex FEMALE normal Not Available [facility] [address], [place], [address], 03/06/2025 03:58:26 03/06/20 25 03/06/2025 [UNIT Y] ANEUP LOIDY NIPT gestation SINGLE TON normal Not Available [facility] [address], [place], [address], 03/06/2025 03:58:26 03/06/20 25 03/06/2025 [UNIT Y] ANEUP LOIDY NIPT for detailed report, see pdf See PDF normal Not Available [facility] [address], [place], [address], 03/06/2025 03:58:26 03/02/2003/02/2025 CULTU RE: URINE result report SEE RESULT S BELOW Test: Cultu re: Urine Speci men Sourc e: Urine - Clean Catch Speci men Type: Urine Speci men Date: 025 1455 Resul t Date: 025 2138 Resul t Statu s: Final resul t Abnor mal: No Resul ting Lab: [facility] [address] [facility] [address] Tel: CULTU RE ----- ----- ----- --- No growt h in 1 day (dete ction level of 10,00 0 colon ies / ml.) Not Available [facility] (Lab) [address] [facility] [address], [place], [address], 03/03/2025 22:42:27 03/12/2003/12/2025 CULTU RE: URINE result report SEE RESULT S BELOW Test: Cultu re: Urine Speci men Sourc e: Urine - Clean Catch Speci men Type: Urine Speci men Date: 2024 1600 Resul t Date: 2024 0610 Resul t Statu s: Final resul t Abnor mal: No Resul ting Lab: [facility] [address] [facility] [address] Tel: CULTU RE ----- ----- ----- --- No growt h in 1 day (dete ction level of 10,00 0 colon ies / ml.) Not Available [facility] (Lab) [address], [place], [address], 03/14/2025 07:15:03 03/12/2003/12/2025 urina lysis , dipst ick Leukocytes ++ Not Available [address], [place], [address], 03/12/2025 16:45:06 03/12/2003/12/2025 urina lysis , dipst ick Protein + Not Available [address], [place], [address], 03/12/2025 16:45:06 03/12/20 25 03/12/2025 urina lysis , dipst ick pH 5 Not Available [address], [place], [address], 03/12/2025 16:45:06 03/12/20 25 03/12/2025 urina lysis , dipst ick Blood trace Not Available [address], [place], [address], 03/12/2025 16:45:06 03/12/20 25 03/12/2025 urina lysis , dipst ick [facility] [place] 1.015 Not Available [facility] [address], [place], [address], 03/12/2025 16:45:06 03/12/20 25 03/12/2025 urina lysis , dipst ick Ketone +++ Not Available [address], [place], [address], 03/12/2025 16:45:06 03/31/20 25 03/31/2025 TSH, REFLE X FREE T4 TSH 0.42 uIU/m L 0.30-5 .33 Not Available [facility] (Lab) [address], [place], [address], 04/01/2025 03:05:12 03/31/20 25 03/31/2025 CULTU RE: URINE result report SEE RESULT S BELOW Test: Cultu re: Urine Speci men Sourc e: Urine Voide d Speci men Type: Urine Speci men Date: 1710 Resul t Date: 6 Resul t Statu s: Final resul t Abnor mal: No Resul ting Lab: [facility] [address] [facility] [address] Tel: CULTU RE ----- ----- ----- --- Cultu re resul t (>=3 organ isms prese nt) indic ates possi ble conta minat ion. Repea t cultu re if sympt oms indic ate. Not Available [facility] (Lab) [address], [place], [address], 04/01/2025 23:59:19 03/31/20 25 03/31/2025 urina lysis , dipst ick Leukocytes +1 Not Available [address], [place], [address], 03/31/2025 09:23:13 03/31/20 25 03/31/2025 urina lysis , dipst ick Nitrite normal Not Available [address], [place], [address], 03/31/2025 09:23:13 03/31/20 25 03/31/2025 urina lysis , dipst ick Urobilinogen normal Not Available [facility] david [address], [place], [address], 03/31/2025 09:23:13 03/31/20 25 03/31/2025 urina lysis , dipst ick Protein trace Not Available [address], [place], [address], 03/31/2025 09:23:13 03/31/20 25 03/31/2025 urina lysis , dipst ick pH 5 Not Available [address], [place], [address], 03/31/2025 09:23:13 03/31/20 25 03/31/2025 urina lysis , dipst ick [facility] [place] [facility] 1.020 Not Available [facility] nita [address], [place], [address], 03/31/2025 09:23:13 03/31/20 25 03/31/2025 urina lysis , dipst ick Ketone normal Not Available [address], [place], [address], 03/31/2025 09:23:13 03/31/20 25 03/31/2025 urina lysis , dipst ick Bilirubin normal Not Available [facility] anna [address], [place], [address], 03/31/2025 09:23:13 03/31/20 25 03/31/2025 urina lysis , dipst ick Glucose normal Not Available [address], [place], [address], 03/31/2025 09:23:13 03/31/20 25 03/31/2025 urina lysis , dipst ick Appearance normal Not Available [facility] domingo [address], [place], [address], 03/31/2025 09:23:13 03/31/20 25 03/31/2025 urina lysis , dipst ick Color normal Not Available [address], [place], [address], 03/31/2025 09:23:13 04/01/20 25 04/01/2025 [facility], DENIS bacterial vaginosis (bv), tma Negati ve negati ve Not Available [facility] (Lab) [address] [place], [address], 04/02/2025 14:08:45 04/01/20 25 04/01/2025 [facility]US, DENIS mekhi species, tma Negati ve negati ve Not Available [facility] (Lab) [address] [place], [address], 04/02/2025 14:08:45 04/01/20 25 04/01/2025 [facility] SW[facility]US, DENIS mekhi glabrata, tma Negati ve negati ve Not Available [facility] (Lab) [address] [place], [address], 04/02/2025 14:08:45 04/01/20 25 04/01/2025 [facility] SWAB [facility]US, DENIS trichomonas vaginalis, tma Negati ve negati ve Not Available [facility] (Lab) [address] [place], [address], 04/02/2025 14:08:45 04/01/20 25 04/01/2025 [facility] SWAB [facility]US, DENIS chlamydia trachomatis, PCR Negati ve negati ve Not Available [facility] (Lab) [address] [place], [address], 04/02/2025 14:08:45 04/01/20 25 04/01/2025 [facility] SWAB PLUS, DENIS neisseria gonorrhoeae, PCR [...] ded in this panel . Not Available [facility] (Lab) [address] , [place], [address], 04/02/2025 14:08:45 04/22/20 25 04/22/2025 CULTU RE: URINE result report SEE RESULT S BELOW Test: Cultu re: Urine Speci men Sourc e: Urine Voide d Speci men Type: Urine Speci men Date: 2024 1314 Resul t Date: 2024 0322 Resul t Statu s: Final resul t Abnor mal: No Resul ting Lab: [facility] [address] [facility] [address] Tel: CULTU RE ----- ----- ----- --- No growt h in 1 day (dete ction level of 10,00 0 colon ies / ml.) Not Available [facility] (Lab) [address], [place], [address], 04/24/2025 04:28:01 04/22/20 25 04/22/2025 urina lysis , dipst ick Leukocytes + Not Available [facility] [address], [place], [address], 04/22/2025 10:01:51 04/22/20 25 04/22/2025 urina lysis , dipst ick Protein + Not Available [address], [place], [address], 04/22/2025 10:01:51 04/22/20 25 04/22/2025 urina lysis , dipst ick pH 8 Not Available [address], [place], [address], 04/22/2025 10:01:51 04/22/20 25 04/22/2025 urina lysis , dipst ick Blood + Not Available [address], [place], [address], 04/22/2025 10:01:51 04/22/20 25 04/22/2025 urina lysis , dipst ick [facility] [place] [facility] 1.010 Not Available [facility] [address], [place], [address], 04/22/2025 10:01:51 04/22/20 25 04/22/2025 urina lysis , dipst ick Ketone + Not Available [place] [address], [place], [address], 04/22/2025 10:01:51 06/23/20 25 06/23/2025 HEMAT OCRIT (HCT) HCT 35.6 % (based on docume nted legal sex) 34.0-4 5.0 Not Available [facility] (Lab) [address], [place], [address], 06/24/2025 11:45:32 06/23/20 25 06/23/2025 HEMOG LOBIN (HGB) HGB 11.1 g/dL (based on docume nted legal sex) 11.6-1 5.4 low Not Available [facility] (Lab) [address] [place], [address], 06/24/2025 11:45:32 06/23/20 25 06/23/2025 GTT - GESTA ROLAND L SCREE N, ACOG OB glucose, 1 hour screen 180 mg/dL 70-135 high Not Available [facility] (Lab) [address] [place], [address], 06/24/2025 11:45:33 06/23/20 25 06/23/2025 HIV 1/2 ANTIG EN/AN TIBOD Y, REFLE X CONFI RMATI ON HIV antigen/anti body Nonrea ctive nonrea ctive HIV-1 antig en and HIV-1 /HIV- 2 antib odies were not detec greg. No labor atory evide nce of HIV infec tion. Not Available [facility] (Lab) [address] [facility] [address], [place], [address], 06/24/2025 11:45:33 06/23/20 25 06/23/2025 RPR SCREE N, REFLE X TITER /CONF IRMAT ION RPR qualitative Nonrea ctive nonrea ctive Not Available [facility] (Lab) [address], [place], [address], 06/24/2025 11:45:34 03/02/20 25 03/02/2025 US, obste tric, nucha l trans lucen cy No observ ation record ed. [email or web address] [address], [place], [address], 03/02/2025 13:35:30 03/02/20 25 03/02/2025 US, obste tric, nucha l trans lucen cy No observ ation record ed. [email or web address] [address], [place], [address], 03/03/2025 14:08:39 03/08/2003/08/2025 US, obste tric, 1st trime ster No observ ation record ed. [email or web address] [address], [place], [address], 03/08/2025 12:22:22 03/08/2003/08/2025 US, obste tric, 1st trime ster No observ ation record ed. [email or web address] E[address], [place], [address], 03/10/2025 15:03:13 04/01/20 25 03/24/2025 qamar r monit or No observ ation record ed. [email or web address] [address], [place], [address], 04/08/2025 12:36:45 04/01/20 25 03/22/2025 qamar r monit or No observ ation record ed. [email or web address] [facility] ([facility] [address] [facility] [address], [place], [address], 04/06/2025 08:59:34 04/20/20 25 04/20/2025 US, obste tric, limit ed No observ ation record ed. [email or web address] [address], [place], [address], 04/20/2025 17:39:30 04/20/20 25 04/20/2025 US, obste tric, follo w-up No observ ation record ed. [email or web address] [address], [place], [address], 04/23/2025 08:32:54 04/28/20 25 04/28/2025 US, obste tric, 2nd or 3rd trime ster No observ ation record ed. [email or web address] [address], [place], [address], 04/28/2025 17:48:42 04/28/20 25 04/28/2025 US, obste tric, 2nd or 3rd trime ster No observ ation record ed. [address], [place], [address], 05/04/2025 22:16:11 05/07/2005/07/2025 non-s tress test No observ ation record ed. [email or web address] [facility] [address] [facility] [address], [place], [address], 05/28/2025 13:33:54 05/21/20 25 05/21/2025 CT, head + brain , w/o contr ast No observ ation record ed. [email or web address] [facility] [address] [facility] [address], [place], [address], 05/24/2025 13:48:57 05/28/20 25 05/28/2025 US, obste tric, follo w-up No observ ation record ed. [facility] [address], [place], [address], 05/28/2025 17:32:34 05/28/20 25 05/28/2025 US, obste tric, follo w-up No observ ation record ed. [email or web address] [address], [place], [address], 06/01/2025 15:13:13 06/08/20 25 06/07/2025 US, obste tric, follo w-up No observ ation record ed. [facility] [address] [place] [address], [place], [address], 06/15/2025 10:53:46 07/07/20 25 07/07/2025 US, obste tric, follo w-up No observ ation record ed. [email or web address] [address], [place], [address], 07/07/2025 13:18:01 07/07/20 25 07/07/2025 US, obste tric, follo w-up No observ ation record ed. [email or web address] [address], [place], [address], 07/07/2025 11:29:37 08/04/20 25 08/04/2025 US, obste tric, follo w-up No observ ation record ed. [email or web address] [address], [place], [address], 08/04/2025 15:08:50 08/04/20 25 08/04/2025 US, obste tric, follo w-up No observ ation record ed. [email or web address] [address], [place], [address], 08/06/2025 10:41:50 08/11/2008/11/2025 non-s tress test No observ ation record ed. [email or web address] [address], [place], [address], 08/11/2025 17:37:52 08/11/20 non-s tress test No observ ation record ed. [email or web address] [address], [place], [address], 08/11/2025 17:38:11 08/15/2008/15/2025 non-s tress test No observ ation record ed. [address] [facility], [place], [address], 08/21/2025 10:18:57 08/15/2008/15/2025 US, obste tric, bioph ysica l profi le No observ ation record ed. [address] [facility], [place], [address], 08/17/2025 10:50:53 08/18/2008/18/2025 US, obste tric, bioph ysica l profi le + non-s tress test No observ ation record ed. [email or web address] [address], [place], [address], 08/18/2025 10:21:39 08/18/2008/18/2025 US, obste tric, bioph ysica l profi le + non-s tress test No observ ation record ed. [email or web address] [address], [place], [address], 08/18/2025 10:35:44 08/18/2008/18/2025 non-s tress test No observ ation record ed. [address], [place], [address], 08/18/2025 17:34:03 08/18/20 non-s tress test No observ ation record ed. [address], [place], [address], 08/18/2025 16:06:09 08/25/20 25 08/25/2025 US, obste tric, bioph ysica l profi le + non-s tress test No observ ation record ed. [facility] [address], [place], [address], 08/25/2025 18:52:06 08/25/20 25 08/25/2025 US, obste tric, follo w-up No observ ation record ed. joelle Aguirree [address], [place], [address], 08/25/2025 15:47:28 08/25/20 25 08/25/2025 non-s tress test No observ ation record ed. [address], [place], [address], 08/25/2025 18:12:15 08/25/20 25 non-s tress test No observ ation record ed. [address], [place], [address], 08/25/2025 17:21:19 08/30/20 25 08/30/2025 imagi ng/di agnos tic resul t No observ ation record ed. [address], [place], [address], 08/31/2025 18:17:32 09/01/20 25 09/01/2025 non-s tress test No observ ation record ed. [address], [place], [address], 09/13/2025 11:32:22 09/01/2009/01/2025 US, obste tric No observ ation record ed. [address], [place], [address], 09/02/2025 15:56:01 09/01/20 25 09/01/2025 non-s tress test No observ ation record ed. [address], [place], [address], 09/02/2025 14:32:38 Result Notes None recorded. Problems Name Problem SNOMED Code Status Onset Date Resolution Date Notes Provider Name and Address Organization Details Recorded Time Hypereme sis 424538962 Completed phenerga n now prn [facility] 16:43:51 Anxiety in pregnanc y 2508276534 9109 Completed will continue to monitor Asia Luis ramos [facility] 2 16:43:51 Past pregnanc y history of gestatio nal diabetes mellitus 156882655 Completed Early 1 hr GTT @ 20wks 11/03 APPT Asia Baileyrafakandykhris arias [facility] 2 16:43:51 Spinal muscular atrophy 7618029 Completed Carrier - Not in contact with FOB. Asia Luis ramos [facility] 2 16:43:51 Anxiety 98867087 Completed prozac Karina ramos [facility] 4 11:00:46 Nausea 988726788 Completed d/c zofran pump 11/08 per pt request Karina ramos [facility] 4 11:00:46 Postpart um hemorrha ge [id number] Completed hx of - 2018 with d&c Karina ramos [facility] 4 11:00:46 Normal pregnanc y in multigra jessy 5634943978 42922 Completed 201907/05/2021 Encounte r for supervis ion of other normal pregnanc y, 3rd trimeste r;Record ed Elsewher e: No [facility] E[facility] Ends Down Checker yvrose: N Dennis ce ID: 0001 Gigi lable Time: 10:45:00 AM Karina ramos [facility] 1 10:15:27 Gestatio n period, 37 weeks 67569860 Completed 201907/05/2021 37 weeks gestatio n of pregnanc y;Record ed Elsewher e: No Locat ion: [facility] S ource: EHR Ends Down Checker yvrose: Laura Collins ce ID: 0001 Gigi lable Time: 09:00:00 AM Karina ramos [facility] 1 10:15:[address] Concept Completed 201907/05/2021 Matern care for abnlt fetl hrt rate or rhym, 3rd tri, unsp;Rec orded Elsewher e: No Locat ion: [facility] S ource: EHR Ends Down Checker yvrose: N Dennis ce ID: 0001 Gigi lable Time: 08:45:00 AM Karina ramos [facility] 1 10:15:29 Gestatio nal diabetes mellitus 15768480 Completed 201907/05/2021 Gestatio nal diabetes mellitus in pregnanc y, diet controll ed;Recor ded Elsewher e: No Locat ion: [facility] S ource: EHR Ends Down Checker yvrose: N Natalyati ce ID: 0001 Gigi lable Time: 11:45:00 AM Karina ramos [facility] 1 10:15:25 Gestatio n period, 38 weeks 98699593 Completed 201907/05/2021 38 weeks gestatio n of pregnanc y;Record ed Elsewher e: No Locat ion: Jaelyn castillo [facility] S ource: EHR Ends Down Checker yvrose: N Practi ce ID: 0001 Gigi lable Time: 11:30:00 AM Karina Burroughs null, [facility] 10:15:13 Amenorrh ea 65274599 Completed 202007/10/2021 Tammi Jones null, [facility] 13:08:35 Pregnanc y 44374144 Completed 202003/29/2022 Karina Burroughs null, [facility] 4 11:00:49 Pregnanc y 28238445 Completed 202304/22/2024 Karina Burroughs null, [facility] 4 11:00:49 Headache 68543005 Active 2023 Karina Burroughs null, [facility] 5 16:19:28 Pregnanc y 99647960 Active 2023 Karina Burroughs null, [facility] 5 16:19:28 Uncompli cated moderate persiste nt asthma 260759672 Active 2024 albutero l prn Shawn Bradley MD [address], [place], [address], [place] [facility] 5 13:08:36 Anxiety 01819009 Active 2024 sertrali ne started 03/02/25 changed to prozac 10 on Shawn Bradley MD [address], [place], [address], [place] [facility] 5 17:05:48 Nausea and vomiting 34935169 Active 2024 Shawn Bradley MD [address], [place], [address], [place] [facility] 5 13:20:27 Placenta circumva llata 5184566 Active 2024 32wk growth [facility] 5 09:44:35 Frequent headache 300060665 Active 2024 transpor t to [facility] 05/21, discharg e 05/23 [facility] referral faxed 05/24 [facility] pending per KAJAL Pittman [facility]- Neuro [facility] unable to see pt due to insuranc e 05/25 [facility] 07/05/25 Level US & Consult (see [facility] consult zayas recommen dations ) regimen prn Imitrex 50mg for acute migraine , vitamin B2 (Ribofla mesfin) 400mg, Coenzyme q10 300mg and magnesiu m oxide 200 to 600mg daily. minimize use of Excedrin or Tylenol to no more than 2-3 times a week. Ryann ramos [facility] 5 10:55:26 Abnormal placenta affectin g manageme nt of mother 10736688 Active 2024 [facility] serial growth [facility] 10:46:25 Iron deficien cy anemia 38447555 Active 2024 SS [facility] tx venofer 200mg x1 HGB 10.6 Ryann Matthew rachel [facility] 5 15:21:25 Gestatio nal diabetes mellitus 52232002 Active 2024 checking bs QID - ruled in GDM Referral faxed to [facility] 07/07 Ryann Castro rachel [facility] 5 14:36:52 Notes:Order faxed to [facility] access 08/10 for PICC line, and home health already caring for ptHilda Vladimir RN at [phone] Problem Notes None recorded. Procedures Surgical History Date Name Laterality Status Provider Name and Address Organization Details Recorded Time 025 SALPINGECTOMY, LAPAROSCOPIC (SURG) completed Not Available [facility] 09/06/2025 11:19:17 025 Date of Last Pap Smear completed Karina Burroughs [facility] 01/28/2025 11:19:42 024 Nexplanon Removal completed Shawn Bradley MD [address], [place], [address], , [facility] 08/05/2024 15:09:58 024 Control Implant Insertion completed Anju Mcnamara CNM [address], [place], [address], , [facility] 05/08/2024 17:59:34 024 cholecystectomy completed Karina Burroughs [facility] 03/31/2025 09:18:57 018 Dilation and Curettage completed Karina Burroughs [facility] 07/05/2021 10:17:50 Imaging Results None recorded. Procedure Notes None recorded. Medical Equipment None Reported. Allergies Allergen ID Allergen Name Allergen Category Reaction Reaction Severity Criticality Documentation Date Start Date Code Code System Note Provider Name and Address Organization Details Recorded Time 24625 terbutali ne medicatio n anaphylax is Not available Not available 01/27/20252021 39194 RxNorm Karina Burroughs [facility] 16:19:27 47797 amoxicill in medicatio n Not available Not available Not available 09/10/2025 723 RxNorm Not Available gene - External Data Service - prod 16:39:37 26745 terbinafi ne medicatio n anaphylax is Not available [facility] 09/10/20252024 38942 RxNorm Not Available gene - External Data Service - prod 16:40:54 Medications [...] Prescrib ed Elsewher e: Yes Loca tion: [facility] [facility] odify By: prabhjot Lee r DateTime : [...] n (supplie d by office) insert lot [id number] Exp 01/2026 Not Available Not Available Not Available 28 mg iron-800 mcg tablet 07/05 completed Prescrib ed Elsewher e: Yes Loca tion: [facility] odify By: prabhjot Lee r DateTime : 01/14/20 10:45:00 AM Not Available Not Available Not Available lidocaine 5 % topical ointment APPLY OINTMENT EXTERNAL LY TO RIBS THREE TIMES DAILY NEEDED 01/14 completed Not Available Not Available Not Available SMOKE JUMPER-PNV-DH A 28 mg iron-1 mg-200 mg capsule [...] height Body mass index (BMI) Body weight Body temperature Systolic And Diastolic Provider Name and Address Organization Details Last Updated DateTime 07/07/2025 162.56 cm 31.1 kg/m2 98587.2 2 g 98.2 [degF] 131/73 mm[Hg] Toya Perkins [facility] 11:02:12 Social History Question Answer Notes LastModified by Organizat ion Details LastModified Time Tobacco Smoking Status Former Smoker Karina ramos, [facility] 07/05/2021 09:06:21 If You Are , What Was Your Level Of Alcohol Consumption Prior To ? Occasional [email or web address] Information not available 03/31/2025 Are You Blind Or Do You Have Difficulty Seeing? No [email or web address] Information not available 07/05/2021 What Is Your Level Of Caffeine Consumption? Heavy [email or web address] Information not available 07/05/2021 In The 14 Days Before Symptom Onset, Have You Had Close Contact With A Laboratory-confir med COVID-19 While That Case Was Ill? No [email or web address] Information not available 07/05/2021 In The 14 Days Before Symptom Onset, Have You Had Close Contact With A Person Who Is Under Investigation For COVID-19 While That Person Was Ill? No Information not available 07/05/2021 Have You Been To An Area Known To Be High Risk For COVID-19? No [email or web address] Information not available 07/05/2021 Are You Deaf Or Do You Have Serious Difficulty Hearing? No [email or web address] Information not available 07/05/2021 What Type Of Diet Are You Following? REGULAR [email or web address] Information not available 07/05/2021 Which Illicit Or Recreational Drugs Have You Used? Marijuana Information not available 07/05/2021 Have You Ever Been Counseled For Unhealthy Alcohol Use? No [email or web address] Information not available 07/05/2021 Do You Use Your Seat Belt Or Car Seat Routinely? Yes [email or web address] Information not available 07/05/2021 Do You Have Smoke And Carbon Monoxide Detectors In Your Home? Yes [email or web address] Information not available 07/05/2021 Do You Use Sunscreen Routinely? Yes [email or web address] Information not available 07/05/2021 Has Tobacco Cessation Counseling Been Provided? No [email or web address] Information not available 07/05/2021 Have You Used IV Drugs? No [email or web address] Information not available 07/05/2021 Do You Have Difficulty Walking Or Climbing Stairs? No [email or web address] Information not available 12/06/2021 Sex: Unknown Functional Status Question Answer Note LastModified by Organizat ion Details LastModified Time Do you use any illicit or recreational drugs? Yes [email or web address] Information not available 07/05/2021 Do you or have you ever used any other forms of tobacco or nicotine? Yes [email or web address] Information not available 07/05/2021 What is your level of alcohol consumption? None [email or web address] Information not available 03/31/2025 Do you or have you ever used smokeless tobacco? Never used smokeless tobacco Information not available 07/05/2021 Are you able to walk independently without assistance or assistive devices? YESWOREST [email or web address] Information not available 07/05/2021 Are you able to care for yourself independently? Yes [email or web address] Information not available 12/06/2021 Do you have difficulty dressing, bathing, grooming, or toileting? No [email or web address] Information not available 12/06/2021 Do you or have you ever used e-cigarettes or vape? Current user of electronic cigarettes [email or web address] Information not available 07/05/2021 What is your exercise level? Occasional [email or web address] Information not available 07/05/2021 Mental Status Question Answer Note LastModified by Organization D etails LastModified Time Do you feel stressed (tense, restless, nervous, or anxious, or unable to sleep at night)? [id number] [email or web address] Information not available 07/05/2021 Family History Relationship Description Onset Age of this Age Resolved Age Notes LastModified by Organization Details LastModified Time Father No current problems or disability [email or web address] Not available 05/2021 09:06:31 Mother No current problems or disability [email or web address] Not available 05/2021 09:06:31 Medical History Condition [...] ICD10 Code Diagnosis IMO Codes Diagnosis Note [id number] Shawn Bradley MD [facility] [address] [address] 06/23/2025 13:43:13 06/25/2025 17:52:18 [id number] Anju Mcnamara CNM [facility] [address],[place] [address] 06/23/2025 13:43:28 06/23/2025 15:58:03 Heartburn 54178454 R12 12554 Gestation period, 28 weeks 61722780 Z3A.28 5671081 [id number] Shawn Bradley MD [facility] [address],[place] [address] 07/07/2025 10:14:22 07/07/2025 11:00:23 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 Z3A.30 6917485 [id number] Anju Mcnamara CNM [facility] [address],[place] [address] 07/07/2025 10:14:33 07/07/2025 11:38:54 Gestation period, 30 weeks 69871524 Z3A.30 1384024 cont pnv Nausea 916419228 R11.0 58517 Gestationa l diabetes mellitus 18999715 O24.419 [id number] Health Concerns Section Related Observation LastModified by Organization Detai ls LastModified Time None Recorded Concern Status LastModified by Organization Details LastModified Time None Recorded Payers Encounter Date Sequence Insurance Name Policy Number Policy Roberts Covered Member ID Roberts Member ID Guarantor Name 07/07/2025 1 [facility] (MEDICAID HMO) [id number] Yuin Mejia [id number] Yuni Mejia Notes Date Note Type Note Provider Name and Address Organization Details Recorded Time 07/07/2025 text/html Generic HPI TemplateReported by Patient Anju Mcnamara CNM [address], [place], [address], , P[facility] 07/07/2025 11:37:13 OBGyn Episode Ob Episode Information Episode Created Date Number of Fetuses Patient Bloodtype Patient rh Status Prepregnancy Weight lbs Domestic Partner Domestic Partner Phone Father Name Injection Operator Status 03/02/20 25 1 B Positive 164 OPEN Fetus Data First Name Last Name Admitted to NICU Weight (g) Sex Living Outcome Pediatric Complications Fetus ID Race Codes Race Delivery Type [id number] Problems Problem Notes SDH form completed 5GI consult Tachycardia Holter monitor 72 order- pt sent back on 03-27-25 Cardiology referral faxed per Dr Martínez office calling pt 04/21 to schedule consult scheduled 05/11 11:15AM Problem Name Start Date End Date Resolution Snomed Code Not e Uncomplicated moderate persistent asthma 03/02/2025 [id number] albuterol prn Abnormal placenta affecting management of mother 05/04/2025 07814154 [facility] serial grow th us Iron deficiency anemia 05/25/2025 [id number] [facility] [place] 200mg x1 HGB 10.6 Nausea and vomiting 03/02/2025 83606156 Anxiety 03/02/2025 23190171 sertralin e started 03/02/25 changed to prozac 10 on Gestational diabetes mellitus 07/08/2025 78799212 checking bs QID - ruled in GDM Referral faxed to [facility] 07/07 Frequent headache 05/03/2025 [id number] [place] to [facility] 05/21, discharge 05/23 MF referral faxed 05/24 SS Neurology consult pending per KAJAL Pittman [facility]- Neuro [facility] unable to see pt due to insurance 05/25[facility] ST 07/05/25 Level US & Consult (see [facility] consult zayas recommendations ) regimen prn Imitrex 50mg for acute migraine, vitamin B2 (Riboflavin) 400mg, Coenzyme q10 300mg and magnesium oxide 200 to 600mg daily. minimize use of Excedrin or Tylenol to no more than 2-3 times a week. 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 went to ed exam done cultures and rx sent, ?FM, await cafeteria monitor results rfilled zofran, precautions and education [...] Type Weight in lbs Pre/Post Dialysis Refused 168.033937026118 BP Diastolic BP Location Tested BP Systolic [...] Type Weight in lbs Pre/Post Dialysis Refused 169.367986169143 BP Diastolic BP Location Tested BP Systolic [...] Weight in lbs Pre/Post Dialysis Refused Weight 175.259820143785 BP Diastolic BP Location Tested BP Systolic [...] Weight in lbs Pre/Post Dialysis Refused Weight 182.925072116835 BP Diastolic BP Location Tested BP Systolic [...] Weight in lbs Pre/Post Dialysis Refused Weight 181.685342858694 BP Diastolic BP Location Tested BP Systolic BP Type 73 L arm 131 sitting Fetus Heart Rate Present Fetus Movement A Yes Comments viral URI testied neg at urg ent care, nausea resolved, efw 68%, +FM plan education and precautions f/u 2 weeks diagnosed GDM, plan western felt hat blocker, gave list reviewed protein vs carb Flowsheet Date 07/21/2025 Gibson Score Blood Edema Fundus Height Fundus Units Glucose Ketones Leukocytes Nitrite Labor Signs Protein Cervic Dilation Cervic Effacement Cervic Station Type Weight in lbs Pre/Post Dialysis Refused Weight 181.822234963608 BP Diastolic BP Location Tested BP Systolic BP Type 78 L arm 127 sitting Fetus Heart Rate Present A 150 Fetus Movement A Yes Comments rpt urine culture +FM review ed blood sugars, meets with western felt hat blocker today, precautions and education f/u 2 weeks [...] Weight in lbs Pre/Post Dialysis Refused Weight 181.448845146734 BP Diastolic BP Location Tested BP Systolic [...] Weight in lbs Pre/Post Dialysis Refused Weight 183.657765312148 BP Diastolic BP Location Tested BP Systolic [...] Type Weight in lbs Pre/Post Dialysis Refused 184.143530674643 BP Diastolic BP Location Tested BP Systolic [...] Type Weight in lbs Pre/Post Dialysis Refused 184.516214367859 BP Diastolic BP Location Tested BP Systolic [...] Type Weight in lbs Pre/Post Dialysis Refused 184.706685749290 BP Diastolic BP Location Tested BP Systolic [...] Weight in lbs Pre/Post Dialysis Refused Weight 184.045264557777 BP Diastolic BP Location Tested BP Systolic [...]
--- OUTSIDE RECORDS SUMMARY | 2025-09-14 00:21 | XMS_ITS | Continuity of Care Document ---
Author Organization [facility], 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 Discussed plan. Not available 08/11/2025 17:10:21 Plan of Treatment Reminders Order Date Submit Date Provider Last Modified By Organization Details Last Modified Time Details Appointments None record ed. Lab None record ed. Referral None record ed. Procedures None record ed. Surgeries None record ed. Imaging None record ed. Medication Orders None record ed. Patient TargetsNo targets recorded. Patient InstructionsNo instructions recorded. Reason for Referral None Reported. Results Created Date Observation Date Name Description Value Unit Range Abnormal Flag Note LastModifiedBy Organization Detail LastModifiedTime 03/06/2003/06/2025 [UNIT Y] ANEUP LOIDY NIPT fraction 5.7% normal Not Available [facility] [address], [place], [address], 03/06/2025 03:58:26 03/06/20 25 03/06/2025 [UNIT Y] ANEUP LOIDY NIPT sex chromosome aneuploidy NOT DETECT ED normal Not Available [facility] [address], [place], [address], 03/06/2025 03:58:26 03/06/20 25 03/06/2025 [UNIT Y] ANEUP LOIDY NIPT monosomy X LOW RISK <1 in 10,000 normal Not Available [facility] [address], [place], [address], 03/06/2025 03:58:26 03/06/20 25 03/06/2025 [UNIT Y] ANEUP LOIDY NIPT trisomy 13 LOW RISK <1 in 10,000 normal Not Available [facility] [address], [place], [address], 03/06/2025 03:58:26 03/06/20 25 03/06/2025 [UNIT Y] ANEUP LOIDY NIPT trisomy 18 LOW RISK <1 in 10,000 normal Not Available [facility] [address], [place], [address], 03/06/2025 03:58:26 03/06/20 25 03/06/2025 [UNIT Y] ANEUP LOIDY NIPT trisomy 21 LOW RISK <1 in 10,000 normal Not Available [facility] [address], [place], [address], 03/06/2025 03:58:26 03/06/20 25 03/06/2025 [UNIT Y] ANEUP LOIDY NIPT sex FEMALE normal Not Available [facility] [address], [place], [address], 03/06/2025 03:58:26 03/06/20 25 03/06/2025 [UNIT Y] ANEUP LOIDY NIPT gestation SINGLE TON normal Not Available [facility] [address], [place], [address], 03/06/2025 03:58:26 03/06/20 25 03/06/2025 [UNIT Y] ANEUP LOIDY NIPT for detailed report, see pdf See PDF normal Not Available [facility] [address], [place], [address], 03/06/2025 03:58:26 03/02/20 25 03/02/2025 CULTU RE: URINE result report SEE RESULT S BELOW Test: Cultu re: Urine Speci men Sourc e: Urine - Clean Catch Speci men Type: Urine Speci men Date: 025 1455 Resul t Date: 2138 Resul t Statu s: Final resul t Abnor mal: No Resul ting Lab: [facility] [address] [facility] [address] Tel: CULTU RE ----- ----- ----- --- No growt h in 1 day (dete ction level of 10,00 0 colon ies / ml.) Not Available [facility] (Lab) [address] [facility], [place], [address], 03/03/2025 22:42:27 03/12/2003/12/2025 CULTU RE: URINE result report SEE RESULT S BELOW Test: Cultu re: Urine Speci men Sourc e: Urine - Clean Catch Speci men Type: Urine Speci men Date: 2024 1600 Resul t Date: 2024 0610 Resul t Statu s: Final resul t Abnor mal: No Resul ting Lab: [facility] [address] [facility] [address] Tel: CULTU RE ----- ----- ----- --- No growt h in 1 day (dete ction level of 10,00 0 colon ies / ml.) Not Available [facility] (Lab) [address] [facility], [place], [address], 03/14/2025 07:15:03 03/12/2003/12/2025 urina lysis , dipst ick Leukocytes ++ Not Available [address], [place], [address], 03/12/2025 16:45:06 03/12/2003/12/2025 urina lysis , dipst ick Protein + Not Available [place] [address], [place], [address], 03/12/2025 16:45:06 03/12/20 25 03/12/2025 urina lysis , dipst ick pH 5 Not Available [place] [address], [place], [address], 03/12/2025 16:45:06 03/12/20 25 03/12/2025 urina lysis , dipst ick Blood trace Not Available [place] [address], [place], [address], 03/12/2025 16:45:06 03/12/20 25 03/12/2025 urina lysis , dipst ick Specific Danevang 1.015 Not Available [facility] [address], [place], [address], 03/12/2025 16:45:06 03/12/20 25 03/12/2025 urina lysis , dipst ick Ketone +++ Not Available [place] [address], [place], [address], 03/12/2025 16:45:06 03/31/20 25 03/31/2025 TSH, REFLE X FREE T4 TSH 0.42 uIU/m L 0.30-5 .33 Not Available [facility] (Lab) [address] [facility], [place], [address], 04/01/2025 03:05:12 03/31/20 25 03/31/2025 CULTU RE: URINE result report SEE RESULT S BELOW Test: Cultu re: Urine Speci men Sourc e: Urine Voide d Speci men Type: Urine Speci men Date: 1710 Resul t Date: 2256 Resul t Statu s: Final resul t Abnor mal: No Resul ting Lab: [facility] [address] [facility] [address] Tel: CULTU RE ----- ----- ----- --- Cultu re resul t (>=3 organ isms prese nt) indic ates possi ble conta minat ion. Repea t cultu re if sympt oms indic ate. Not Available [facility] (Lab) [address], [place], [address], 04/01/2025 23:59:19 03/31/20 25 03/31/2025 urina lysis , dipst ick Leukocytes +1 Not Available [facility] [address], [place], [address], 03/31/2025 09:23:13 03/31/20 25 03/31/2025 urina lysis , dipst ick Nitrite normal Not Available [place] [address], [place], [address], 03/31/2025 09:23:13 03/31/20 25 03/31/2025 urina lysis , dipst ick Urobilinogen normal Not Available [facility], [place], [address], 03/31/2025 09:23:13 03/31/20 25 03/31/2025 urina lysis , dipst ick Protein trace Not Available [place] [address], [place], [address], 03/31/2025 09:23:13 03/31/20 25 03/31/2025 urina lysis , dipst ick pH 5 Not Available [place] [address], [place], [address], 03/31/2025 09:23:13 03/31/20 25 03/31/2025 urina lysis , dipst ick Specific Danev[place] 1.020 Not Available [facility] [address], [place], [address], 03/31/2025 09:23:13 03/31/20 25 03/31/2025 urina lysis , dipst ick Ketone normal Not Available [place] [address], [place], [address], 03/31/2025 09:23:13 03/31/20 25 03/31/2025 urina lysis , dipst ick Bilirubin normal Not Available [facility] [address], [place], [address], 03/31/2025 09:23:13 03/31/20 25 03/31/2025 urina lysis , dipst ick Glucose normal Not Available [place] [address], [place], [address], 03/31/2025 09:23:13 03/31/20 25 03/31/2025 urina lysis , dipst ick Appearance normal Not Available [facility] [address], [place], [address], 03/31/2025 09:23:13 03/31/20 25 03/31/2025 urina lysis , dipst ick Color normal Not Available [place] [address], [place], [address], 03/31/2025 09:23:13 04/01/20 25 04/01/2025 [facility] SW[facility], DENIS bacterial vaginosis (bv), tma Negati ve negati ve Not Available [facility] (Lab) [address] [place] [place], [address], 04/02/2025 14:08:45 04/01/20 25 04/01/2025 [facility] SWAB PLUS, DENIS mekhi species, tma Negati ve negati ve Not Available [facility] (Lab) [address] [place] [place], [address], 04/02/2025 14:08:45 04/01/20 25 04/01/2025 [facility]OM[facility] SWAB PLUS, DENIS mekhi glabrata, tma Negati ve negati ve Not Available [facility] (Lab) [address] [place], [address], 04/02/2025 14:08:45 04/01/20 25 04/01/2025 [facility]OM[facility] SWAB PLUS, DENIS trichomonas vaginalis, tma Negati ve negati ve Not Available [facility] (Lab) [address] [place], [address], 04/02/2025 14:08:45 04/01/20 25 04/01/2025 [facility] SWAB PL[facility], DENIS chlamydia trachomatis, PCR Negati ve negati ve Not Available [facility] (Lab) [address] [place], [address], 04/02/2025 14:08:45 04/01/20 25 04/01/2025 [facility] SWAB PLUS, DENIS neisseria gonorrhoeae, PCR [...] ded in this panel . Not Available [facility] (Lab) [address] , [place], [address], 04/02/2025 14:08:45 04/22/2004/22/2025 CULTU RE: URINE result report SEE RESULT S BELOW Test: Cultu re: Urine Speci men Sourc e: Urine Voide d Speci men Type: Urine Speci men Date: 2024 1314 Resul t Date: 2024 0322 Resul t Statu s: Final resul t Abnor mal: No Resul ting Lab: [facility] [address] [facility] [address] Tel: CULTU RE ----- ----- ----- --- No growt h in 1 day (dete ction level of 10,00 0 colon ies / ml.) Not Available [facility] (Lab) [address], [place], [address], 04/24/2025 04:28:01 04/22/20 25 04/22/2025 urina lysis , dipst ick Leukocytes + Not Available [address], [place], [address], 04/22/2025 10:01:51 04/22/20 25 04/22/2025 urina lysis , dipst ick Protein + Not Available [place] [address], [place], [address], 04/22/2025 10:01:51 04/22/20 25 04/22/2025 urina lysis , dipst ick pH 8 Not Available [place] [address], [place], [address], 04/22/2025 10:01:51 04/22/20 25 04/22/2025 urina lysis , dipst ick Blood + Not Available [place] [address], [place], [address], 04/22/2025 10:01:51 04/22/20 25 04/22/2025 urina lysis , dipst ick Specific Danevang 1.010 Not Available [facility] [address], [place], [address], 04/22/2025 10:01:51 04/22/20 25 04/22/2025 urina lysis , dipst ick Ketone + Not Available [place] [address], [place], [address], 04/22/2025 10:01:51 06/23/20 25 06/23/2025 HEMAT OCRIT (HCT) HCT 35.6 % (based on docume nted legal sex) 34.0-4 5.0 Not Available [facility] (Lab) [address] [facility], [place], [address], 06/24/2025 11:45:32 06/23/20 25 06/23/2025 HEMOG LOBIN (HGB) HGB 11.1 g/dL (based on docume nted legal sex) 11.6-1 5.4 low Not Available [facility] (Lab) [address] [facility], [place], [address], 06/24/2025 11:45:32 06/23/20 25 06/23/2025 GTT - GESTA ROLAND L SCREE N, ACOG OB glucose, 1 hour screen 180 mg/dL 70-135 high Not Available [facility] (Lab) [address] [facility], [place], [address], 06/24/2025 11:45:33 06/23/20 25 06/23/2025 HIV 1/2 ANTIG EN/AN TIBOD Y, REFLE X CONFI RMATI ON HIV antigen/anti body Nonrea ctive nonrea ctive HIV-1 antig en and HIV-1 /HIV- 2 antib odies were not detec greg. No labor atory evide nce of HIV infec tion. Not Available [facility] (Lab) [address] [facility], [place], [address], 06/24/2025 11:45:33 06/23/20 25 06/23/2025 RPR SCREE N, REFLE X TITER /CONF IRMAT ION RPR qualitative Nonrea ctive nonrea ctive Not Available [facility] (Lab) [address] [facility], [place], [address], 06/24/2025 11:45:34 07/21/20 25 07/21/2025 CULTU RE: URINE result report SEE RESULT S BELOW Test: Cultu re: Urine Speci men Sourc e: Urine - Clean Catch Speci men Type: Urine Speci men Date: 2024 1024 Resul t Date: 2024 0252 Resul t Statu s: Final resul t Abnor mal: No Resul ting Lab: [facility] [address] [facility] [address] Tel: CULTU RE ----- ----- ----- --- No growt h in 1 day (dete ction level of 10,00 0 colon ies / ml.) Not Available [facility] (Lab) [address], [place], [address], 07/23/2025 03:57:01 07/21/2007/21/2025 urina lysis , dipst ick Leukocytes ++ Not Available [address], [place], [address], 07/21/2025 11:03:04 07/21/20 25 07/21/2025 urina lysis , dipst ick Nitrite neg Not Available [address], [place], [address], 07/21/2025 11:03:04 07/21/20 25 07/21/2025 urina lysis , dipst ick Urobilinogen neg Not Available [facility] [address], [place], [address], 07/21/2025 11:03:04 07/21/20 25 07/21/2025 urina lysis , dipst ick Protein + Not Available [place] [address], [place], [address], 07/21/2025 11:03:04 07/21/20 25 07/21/2025 urina lysis , dipst ick pH 5 Not Available [place] [address], [place], [address], 07/21/2025 11:03:04 07/21/20 25 07/21/2025 urina lysis , dipst ick Specific Dan[place] 1.030 Not Available [facility] [address], [place], [address], 07/21/2025 11:03:04 07/21/20 25 07/21/2025 urina lysis , dipst ick Ketone +++ Not Available [place] [address], [place], [address], 07/21/2025 11:03:04 07/21/20 25 07/21/2025 urina lysis , dipst ick Bilirubin neg Not Available [facility] [address], [place], [address], 07/21/2025 11:03:04 07/21/20 25 07/21/2025 urina lysis , dipst ick Glucose neg Not Available [place] [address], [place], [address], 07/21/2025 11:03:04 07/21/20 25 07/21/2025 urina lysis , dipst ick Appearance cloudy Not Available [address], [place], [address], 07/21/2025 11:03:04 07/21/20 25 07/21/2025 urina lysis , dipst ick Color dark Not Available [place] [address], [place], [address], 07/21/2025 11:03:04 08/04/20 25 08/04/2025 CMP(C OMPRE HENSI VE METAB OLIC PANEL ) sodium 138 mmol/ L 133-14 6 Not Available [facility] (Lab) [address] [facility], [place], [address], 08/05/2025 13:39:18 08/04/20 25 08/04/2025 CMP(C OMPRE HENSI VE METAB OLIC PANEL ) potassium 4.0 mmol/ L 3.5-5. 1 Not Available [facility] (Lab) [address] [facility], [place], [address], 08/05/2025 13:39:18 08/04/20 25 08/04/2025 CMP(C OMPRE HENSI VE METAB OLIC PANEL ) chloride 105 mmol/ L 98-107 Not Available [facility] (Lab) [address] [facility], [place], [address], 08/05/2025 13:39:18 08/04/20 25 08/04/2025 CMP(C OMPRE HENSI VE METAB OLIC PANEL ) carbon dioxide 25 mmol/ L 21-31 Not Available [facility] (Lab) [address] [facility], [place], [address], 08/05/2025 13:39:18 08/04/20 25 08/04/2025 CMP(C OMPRE HENSI VE METAB OLIC PANEL ) anion gap 8 mmol/ L 4-13 Not Available [facility] (Lab) [address] [facility], [place], [address], 08/05/2025 13:39:18 08/04/20 25 08/04/2025 CMP(C OMPRE HENSI VE METAB OLIC PANEL ) blood urea nitrogen 10 mg/dL 7-25 Not Available [facility] (Lab) [address] [facility], [place], [address], 08/05/2025 13:39:18 08/04/20 25 08/04/2025 CMP(C OMPRE HENSI VE METAB OLIC PANEL ) creatinine 0.41 mg/dL 0.60-1 .30 low Not Available [facility] (Lab) [address] [facility], [place], [address], 08/05/2025 13:39:18 08/04/20 25 08/04/2025 CMP(C OMPRE HENSI VE METAB OLIC PANEL ) egfrcr (CKD-epi 2020) >90 mL/mi n/1.7 3_m2 >=60 Not Available [facility] (Lab) [address] [facility], [place], [address], 08/05/2025 13:39:18 08/04/20 25 08/04/2025 CMP(C OMPRE HENSI VE METAB OLIC PANEL ) calcium 8.9 mg/dL 8.3-10 .5 Not Available [facility] (Lab) [address] [facility], [place], [address], 08/05/2025 13:39:18 08/04/20 25 08/04/2025 CMP(C OMPRE HENSI VE METAB OLIC PANEL ) glucose 116 mg/dL 70-100 high Not Available [facility] (Lab) [address] [facility], [place], [address], 08/05/2025 13:39:18 08/04/20 25 08/04/2025 CMP(C OMPRE HENSI VE METAB OLIC PANEL ) protein, total 6.1 g/dL 6.4-8. 3 low Not Available [facility] (Lab) [address] [facility], [place], [address], 08/05/2025 13:39:18 08/04/20 25 08/04/2025 CMP(C OMPRE HENSI VE METAB OLIC PANEL ) albumin 3.5 g/dL 3.5-5. 0 Not Available [facility] (Lab) [address] [facility], [place], [address], 08/05/2025 13:39:18 08/04/20 25 08/04/2025 CMP(C OMPRE HENSI VE METAB OLIC PANEL ) ALT 11 units /L 9-43 Not Available [facility] (Lab) [address] [facility], [place], [address], 08/05/2025 13:39:18 08/04/20 25 08/04/2025 CMP(C OMPRE HENSI VE METAB OLIC PANEL ) alkaline phosphatase 98 units /L 34-104 Not Available [facility] (Lab) [address] [facility], [place], [address], 08/05/2025 13:39:18 08/04/20 25 08/04/2025 CMP(C OMPRE HENSI VE METAB OLIC PANEL ) AST 15 units /L 13-39 Not Available [facility] (Lab) [address] [facility], [place], [address], 08/05/2025 13:39:18 08/04/20 25 08/04/2025 CMP(C OMPRE HENSI VE METAB OLIC PANEL ) bilirubin, total 0.3 mg/dL 0.2-1. 2 Not Available [facility] (Lab) [address] [facility], [place], [address], 08/05/2025 13:39:18 08/04/20 25 08/04/2025 BILE ACIDS , TOTAL bile acids, total 4 umol/ L 0-10 Test Perfo rmed by: Luke hern[facility]dez rn [facility] [address] [address] Not Available [facility] (Lab) [address] [facility], [place], [address], 08/05/2025 13:39:19 03/02/20 25 03/02/2025 US, obste tric, nucha l trans lucen cy No observ ation record ed. [email or web address] [place] [address], [place], [address], 03/02/2025 13:35:30 03/02/20 25 03/02/2025 US, obste tric, nucha l trans lucen cy No observ ation record ed. [email or web address] [address], [place], [address], 03/03/2025 14:08:39 03/08/20 25 03/08/2025 US, obste tric, 1st trime ster No observ ation record ed. [email or web address] [place] [address], [place], [address], 03/08/2025 12:22:22 03/08/20 25 03/08/2025 US, obste tric, 1st trime ster No observ ation record ed. [email or web address] Esha [address], [place], [address], 03/10/2025 15:03:13 04/01/20 25 03/24/2025 qamar r monit or No observ ation record ed. [address], [address], 04/08/2025 12:36:45 04/01/20 25 03/22/2025 qamar r monit or No observ ation record ed. [address] (Pulmonary) [address] [place] [address] [place] [address], [address], 04/06/2025 08:59:34 04/20/20 25 04/20/2025 US, obstangela tric, limit ed No observ ation record ed. [email or web address] [place] [address], [place], [address], 04/20/2025 17:39:30 04/20/20 25 04/20/2025 US, obste tric, follo w-up No observ ation record ed. Esha [address] [place] [address] [address], [place], [address], 04/23/2025 08:32:54 04/28/20 25 04/28/2025 US, obste tric, 2nd or 3rd trime ster No observ ation record ed. [email or web address] [place] [address], [place], [address], 04/28/2025 17:48:42 04/28/20 25 04/28/2025 US, obste tric, 2nd or 3rd trime ster No observ ation record ed. [email or web address] [address], [place], [address], 05/04/2025 22:16:11 05/07/20 25 05/07/2025 non-s tress test No observ ation record ed. [address], [place], [address], 05/28/2025 13:33:54 05/21/20 25 05/21/2025 CT, head + brain , w/o contr ast No observ ation record ed. [place] [id number] [facility] [address], [place], [address], 05/24/2025 13:48:57 05/28/20 25 05/28/2025 US, obste tric, follo w-up No observ ation record ed. [email or web address] [place] [address], [place], [address], 05/28/2025 17:32:34 05/28/20 25 05/28/2025 US, obste tric, follo w-up No observ ation record ed. Esha [address], [place], [address], 06/01/2025 15:13:13 06/08/20 25 06/07/2025 US, obste tric, follo w-up No observ ation record ed. [facility] [address], [place], [address], 06/15/2025 10:53:46 07/07/20 25 07/07/2025 US, obste tric, follo w-up No observ ation record ed. [email or web address] [place] [address], [place], [address], 07/07/2025 13:18:01 07/07/20 25 07/07/2025 US, obste tric, follo w-up No observ ation record ed. [email or web address] [address], [place], [address], 07/07/2025 11:29:37 08/04/20 25 08/04/2025 US, obste tric, follo w-up No observ ation record ed. [email or web address] [place] [address], [place], [address], 08/04/2025 15:08:50 08/04/20 25 08/04/2025 US, obste tric, follo w-up No observ ation record ed. [address], [place], [address], 08/06/2025 10:41:50 08/11/20 25 08/11/2025 non-s tress test No observ ation record ed. [email or web address] [place] [address], [place], [address], 08/11/2025 17:37:52 08/11/20 non-s tress test No observ ation record ed. [place] [address], [place], [address], 08/11/2025 17:38:11 08/15/20 25 08/15/2025 non-s tress test No observ ation record ed. [place] [address], [place], [address], 08/21/2025 10:18:57 08/15/2008/15/2025 US, obste tric, bioph ysica l profi le No observ ation record ed. [address], [place], [address], 08/17/2025 10:50:53 08/18/2008/18/2025 US, obste tric, bioph ysica l profi le + non-s tress test No observ ation record ed. [email or web address] [place] [address], [place], [address], 08/18/2025 10:21:39 08/18/2008/18/2025 US, obste tric, bioph ysica l profi le + non-s tress test No observ ation record ed. [email or web address] E[address], [place], [address], 08/18/2025 10:35:44 08/18/2008/18/2025 non-s tress test No observ ation record ed. [email or web address] [place] [address], [place], [address], 08/18/2025 17:34:03 08/18/20 non-s tress test No observ ation record ed. [email or web address] [place] [address], [place], [address], 08/18/2025 16:06:09 08/25/2008/25/2025 US, obste tric, bioph ysica l profi le + non-s tress test No observ ation record ed. [email or web address] [place] [address], [place], [address], 08/25/2025 18:52:06 08/25/2008/25/2025 US, obste tric, follo w-up No observ ation record ed. joelle Esha [address], [place], [address], 08/25/2025 15:47:28 08/25/2008/25/2025 non-s tress test No observ ation record ed. [address], [place], [address], 08/25/2025 18:12:15 08/25/20 non-s tress test No observ ation record ed. [address], [place], [address], 08/25/2025 17:21:19 08/30/20 25 08/30/2025 imagi ng/di agnos tic resul t No observ ation record ed. [address] [facility], [place], [address], 08/31/2025 18:17:32 09/01/20 25 09/01/2025 non-s tress test No observ ation record ed. [address] [facility], [place], [address], 09/13/2025 11:32:22 09/01/2009/01/2025 [place], obste tric No observ ation record ed. [address], [place], [address], 09/02/2025 15:56:01 09/01/20 25 09/01/2025 non-s tress test No observ ation record ed. [address], [place], [address], 09/02/2025 14:32:38 Result Notes None recorded. Problems Name Problem SNOMED Code Status Onset Date Resolution Date Notes Provider Name and Address Organization Details Recorded Time Hypereme sis 103640744 Completed phenerga n now prn Asia ramos [facility] 2 16:43:51 Anxiety in pregnanc y 8278605026 9109 Completed will continue to monitor Asia arias rachel [facility] 2 16:43:51 Past pregnanc y history of gestatio nal diabetes mellitus [id number] Completed Early 1 hr GTT @ 20wks 11/03 APPT Asia arias [facility] 2 16:43:51 Spinal muscular atrophy [id number] Completed Carrier - Not in contact with FOB. Asia Baileyrafakandyganeshpetrona arias rachel [facility] 2 16:43:51 Anxiety 44673642 Completed prozac Karina ramos [facility] 4 11:00:46 Nausea [id number] Completed d/c zofran pump 11/08 per pt request Karina ramos [facility] 4 11:00:46 Postpart um hemorrha ge [id number] Completed 2017 with d&c Karina ramos [facility] 4 11:00:46 Normal pregnanc y in multigra jessy [id number] 22424 Completed 201907/05/2021 Encounte r for supervis ion of other normal pregnanc y, 3rd trimeste r;Record ed Elsewher e: No Locat ion: Jaelyn castillo [facility] S ource: EHR Plastics Bench Mechanic yvrose: N Practi ce ID: [id number] Gigi lable Time: 10:45:00 AM Karina ramos [facility] 1 10:15:27 Gestatio n period, 37 weeks [id number] Completed 201907/05/2021 37 weeks gestatio n of pregnanc y;Record ed Elsewher e: No Locat ion: [facility] S ource: EHR Plastics Bench Mechanic yvrose: N Natalyati ce ID: [id number] Gigi lable Time: 09:00:00 AM Karina ramos, [facility] 10:15:[address] Concept Completed 201907/05/2021 Matern care for abnlt fetl hrt rate or rhym, 3rd tri, unsp;Rec orded Elsewher e: No Locat ion: [facility] S ource: EHR Plastics Bench Mechanic yvrose: N Natalyati ce ID: [id number] Gigi lable Time: 08:45:00 AM Karina ramos, [facility] 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 10:15:13 Amenorrh ea 02155440 Completed 202007/10/2021 Tammi ramos [facility] 13:08:35 Pregnanc y 07565035 Completed 202003/29/2022 Karina Burroughs null, [facility] 4 11:00:49 Pregnanc y 54893620 Completed 202304/22/2024 Karinasofia Burroughs null, [facility] 4 11:00:49 Headache 71411070 Active 2023 Karina Burroughs null, [facility] 5 16:19:28 Pregnanc y 28275628 Active 2023 Karina Heike null, [facility] 5 16:19:28 Uncompli cated moderate persiste nt asthma 788297130 Active 2024 albutero l prn Shawn Bradley MD [address], [place], [address], [facility] 5 13:08:36 Anxiety 37690692 Active 2024 sertrali ne started 03/02/25 changed to prozac 10 on Shawn Bradley MD [address], [place], [address], [facility] 5 17:05:48 Nausea and vomiting 60995938 Active 2024 Shawn Bradley MD [address], [place], [address], [facility] 5 13:20:27 Placenta circumva llata 0828503 Active 2024 32wk growth Ryann Castro null, [facility] 5 09:44:35 Frequent headache 909664925 Active 2024 transpor t to [facility] 05/21, discharg e 05/23 [facility] referral faxed 05/24 [facility] per KAJAL Pittman [facility] pt due to insuranc e 05/25 [facility] 07/05/25 Level US & Consult (see [facility] consult zayas recommen dations ) regimen prn Imitrex 50mg for acute migraine , vitamin B2 (Ribofla mesfin) 400mg, Coenzyme q10 300mg and magnesiu m oxide 200 to 600mg daily. minimize use of Excedrin or Tylenol to no more than 2-3 times a week. Ryann Castro rachel [facility] 5 10:55:26 Abnormal placenta affectin g manageme nt of mother 27983410 Active 2024 MCI serial growth us Ryann Castro rachel [facility] 10:46:25 Iron deficien cy anemia 35095987 Active 2024 [facility] tx venofer 200mg x1 HGB 10.6 Ryann Matthew ramos [facility] 5 15:21:25 Gestatio nal diabetes mellitus 84243906 Active 2024 checking bs QID - ruled in GDM Referral faxed to [facility] 07/07 Ryann Castro rachel [facility] 5 14:36:52 Notes:Order faxed to [facility] 08/10 for PICC line, and home health already caring for pt. Vladimir RN at [phone] Problem Notes None recorded. Procedures Surgical History Date Name Laterality Status Provider Name and Address Organization Details Recorded Time 025 SALPINGECTOMY, LAPAROSCOPIC (SURG) completed Not Available [facility] 09/06/2025 11:19:17 025 Date of Last Pap Smear completed Karina Burroughs [facility] 01/28/2025 11:19:42 024 Nexplanon Removal completed Shawn Bradley MD [address], [place], [address], [place] [facility] 08/05/2024 15:09:58 024 Control Implant Insertion completed Anju Mcnamara CNM [address], [place], [address], [facility] 05/08/2024 17:59:34 024 cholecystectomy completed Karina Burroughs [facility] 03/31/2025 09:18:57 018 Dilation and Curettage completed Karina Burroughs [facility] 07/05/2021 10:17:50 Imaging Results None recorded. Procedure Notes None recorded. Medical Equipment None Reported. Allergies Allergen ID Allergen Name Allergen Category Reaction Reaction Severity Criticality Documentation Date Start Date Code Code System Note Provider Name and Address Organization Details Recorded Time 75730 terbutali ne medicatio n anaphylax is Not available Not available 01/27/20252021 21638 RxNorm Karina ramos, [facility] 16:19:27 86164 amoxicill in medicatio n Not available Not available Not available 09/10/2025 723 RxNorm Not Available [employer] - External Data Service - prod 16:39:37 93643 terbinafi ne medicatio n anaphylax is Not available [facility] 09/10/20252024 68338 RxNorm Not Available [employer] - prod 16:40:54 Medications Name [...] (75 mg)/mL oral drops 07/05 completed Prescrib tej Deleon e: Yes Loca tion: [facility] cast[facility] M odify By: [email or web address] Encounte r [...] n (supplie d by office) insert lot [id number] Exp 01/2026 Not Available Not Available Not Available 28 mg iron-800 mcg tablet 07/05 completed Prescrib ed Jeriher e: Yes Loca tion: [facility] odify By: prabhjot barrera DateTime : 01/14/20 10:45:00 AM Not Available Not Available Not Available lidocaine 5 % topical ointment APPLY OINTMENT EXTERNAL LY TO RIBS THREE TIMES DAILY NEEDED 01/14 completed Not Available Not Available Not Available TUBE TURNER-PNV-DH A 28 mg iron-1 mg-200 mg capsule [...] and Address Organization Details Last Updated DateTime 08/11/2025 162.56 cm 31.4 kg/m2 24813.4 g 115/73 mm[Hg] Toya Maddie [facility] 08/11/2025 15:17:18 Social History Question Answer Notes LastModified by Organizat ion Details LastModified Time Tobacco Smoking Status Former Smoker Karina Heike ramos, [facility] 07/05/2021 09:06:21 If You Are , What Was Your Level Of Alcohol Consumption Prior To ? Occasional [email or web address] Information not available 03/31/2025 Are You Blind Or Do You Have Difficulty Seeing? No [email or web address] Information not available 07/05/2021 What Is Your Level Of Caffeine Consumption? Heavy [email or web address] Information not available 07/05/2021 In The 14 Days Before Symptom Onset, Have You Had Close Contact With A Laboratory-confir med COVID-19 While That Case Was Ill? No [email or web address] Information not available 07/05/2021 In The 14 Days Before Symptom Onset, Have You Had Close Contact With A Person Who Is Under Investigation For COVID-19 While That Person Was Ill? No [email or web address] Information not available 07/05/2021 Have You Been To An Area Known To Be High Risk For COVID-19? No [email or web address] Information not available 07/05/2021 Are You Deaf Or Do You Have Serious Difficulty Hearing? No Information not available 07/05/2021 What Type Of Diet Are You Following? REGULAR [email or web address] Information not available 07/05/2021 Which Illicit Or Recreational Drugs Have You Used? Marijuana [email or web address] Information not available 07/05/2021 Have You Ever Been Counseled For Unhealthy Alcohol Use? No [email or web address] Information not available 07/05/2021 Do You Use Your Seat Belt Or Car Seat Routinely? Yes [email or web address] Information not available 07/05/2021 Do You Have Smoke And Carbon Monoxide Detectors In Your Home? Yes [email or web address] Information not available 07/05/2021 Do You Use Sunscreen Routinely? Yes [email or web address] Information not available 07/05/2021 Has Tobacco Cessation Counseling Been Provided? No [email or web address] Information not available 07/05/2021 Have You Used IV Drugs? No [email or web address] Information not available 07/05/2021 Do You Have Difficulty Walking Or Climbing Stairs? No [email or web address] Information not available 12/06/2021 Sex: Unknown Functional Status Question Answer Note LastModified by Organizat ion Details LastModified Time Do you use any illicit or recreational drugs? Yes [email or web address] Information not available 07/05/2021 Do you or have you ever used any other forms of tobacco or nicotine? Yes [email or web address] Information not available 07/05/2021 What is your level of alcohol consumption? None [email or web address] Information not available 03/31/2025 Do you or have you ever used smokeless tobacco? Never used smokeless tobacco [email or web address] Information not available 07/05/2021 Are you able to walk independently without assistance or assistive devices? YESWOREST [email or web address] Information not available 07/05/2021 Are you able to care for yourself independently? Yes Information not available 12/06/2021 Do you have difficulty dressing, bathing, grooming, or toileting? No Information not available 12/06/2021 Do you or have you ever used e-cigarettes or vape? Current user of electronic cigarettes [email or web address] Information not available 07/05/2021 What is your exercise level? Occasional [email or web address] Information not available 07/05/2021 Mental Status Question Answer Note LastModified by Organization D etails LastModified Time Do you feel stressed (tense, restless, nervous, or anxious, or unable to sleep at night)? [id number] Information not available 07/05/2021 Family History Relationship Description Onset Age of this Age Resolved Age Notes LastModified by Organization Details LastModified Time Father No current problems or disability [email or web address] Not available 05/2021 09:06:31 Mother No current problems or disability [email or web address] Not available 05/2021 09:06:31 Medical History Condition [...] ICD10 Code Diagnosis IMO Codes Diagnosis Note [id number] Anju Mcnamara CNM [place] [address] [address] 07/21/2025 09:28:54 07/21/2025 12:36:06 Pain in pelvis 93200342 R10.2 093074 Gestation period, 32 weeks 0025675 Z3A.32 2765722 [id number] Shawn Bradley MD [place] [address] [address] 08/04/2025 14:02:59 08/04/2025 15:06:33 Gestational diabetes mellitus 27147862 O24.410 O43.103 O43.113 Z3A.34 43820351 [id number] [facility] [address],[place] [address] 08/04/2025 14:21:57 08/04/2025 15:26:03 Gestation period, 34 weeks 04958666 Z3A.34 7914410 Pruritic d isorder of skin 3163747362 L29.9 32915 plan labs today, ursadiol BID [id number] [facility] [address],[place] [address] 08/11/2025 14:51:38 08/11/2025 17:16:44 Gestational diabetes mellitus 95396579 O24.414 35105337 [id number] Anju Mcnamara CNM [place] [address],[place] [address] 08/11/2025 16:25:59 08/11/2025 17:46:32 Gestational diabetes mellitus 64975807 O24.414 [id number] Health Concerns Section Related Observation LastModified by Organization Detai ls LastModified Time None Recorded Concern Status LastModified by Organization Details LastModified Time None Recorded Payers Encounter Date Sequence Insurance Name Policy Number Policy Roberts Covered Member ID Roberts Member ID Guarantor Name 08/11/2025 1 [facility] (MEDICAID HMO) [id number] Yuni Mejia [id number] Yuni Mejia Notes Date Note Type Note Provider Name and Address Organization Details Recorded Time 08/11/2025 text/html Generic HPI TemplateReported by Patient Anju Mcnamara CNM [address], [place], [address], [facility] 08/11/2025 17:10:44 OBGyn Episode Ob Episode Information Episode Created Date Number of Fetuses Patient Bloodtype Patient rh Status Prepregnancy Weight lbs Domestic Partner Domestic Partner Phone Father Name Military Technology Manager Status 03/02/20 25 1 B Positive 164 OPEN Fetus Data First Name Last Name Admitted to NICU Weight (g) Sex Living Outcome Pediatric Complications Fetus ID Race Codes Race Delivery Type [id number] Problems Problem Notes SDH form completed 5GI consult Tachycardia Holter monitor 72 order- pt sent back on 03-27-25 Cardiology referral faxed per Dr Martínez office calling pt 04/21 to schedule consult scheduled 05/11 11:15AM Problem Name Start Date End Date Resolution Snomed Code Not e Uncomplicated moderate persistent asthma 03/02/2025 [id number] albuterol prn Abnormal placenta affecting management of mother 05/04/2025 06833284 MCI serial grow th us Iron deficiency anemia 05/25/2025 [id number] [facility] MF tx [place] 200mg x1 HGB 10.6 Nausea and vomiting 03/02/2025 33727727 Anxiety 03/02/2025 98153896 sertralin e started 03/02/25 changed to prozac 10 on Gestational diabetes mellitus 07/08/2025 27239888 checking bs QID - ruled in GDM Referral faxed to [facility] 07/07 Frequent headache 05/03/2025 [id number] [place] to [facility] 05/21, discharge 05/23 [facility] referral faxed 05/24 [facility] Neurology consult pending per KAJAL Pittman [facility] unable [facility] pt due to insurance 05/25[facility] 07/05/25 Level US & Consult (see [facility] consult zayas recommendations ) regimen prn Imitrex 50mg for acute migraine, vitamin B2 (Riboflavin) 400mg, Coenzyme q10 300mg and magnesium oxide 200 to 600mg daily. minimize use of Excedrin or Tylenol to no more than 2-3 times a week. 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/2025 3590444 32wk growth us Jun Calculation Initial Jun [...] Weight in lbs Pre/Post Dialysis Refused Weight 158.978559713153 BP Diastolic BP Location Tested BP Systolic [...] Weight in lbs Pre/Post Dialysis Refused Weight 158.889898785699 BP Diastolic BP Location Tested BP Systolic [...] Weight in lbs Pre/Post Dialysis Refused Weight 162.522145355750 BP Diastolic BP Location Tested BP Systolic BP Type 78 123 Fetus Heart Rate Present A 148 Fetus Movement A Yes Comments Patient is having having ronny n, cramping and vaginal discharge. went to ed exam done cultures and rx sent, ?FM, await medical laboratory specialist results rfilled zofran, precautions and education f/u [...] Type Weight in lbs Pre/Post Dialysis Refused 168.691904601366 BP Diastolic BP Location Tested BP Systolic [...] Type Weight in lbs Pre/Post Dialysis Refused 169.153503830196 BP Diastolic BP Location Tested BP Systolic [...] Weight in lbs Pre/Post Dialysis Refused Weight 175.060985271849 BP Diastolic BP Location Tested BP Systolic [...] Weight in lbs Pre/Post Dialysis Refused Weight 182.557058336743 BP Diastolic BP Location Tested BP Systolic [...] Weight in lbs Pre/Post Dialysis Refused Weight 181.608569913850 BP Diastolic BP Location Tested BP Systolic BP Type 73 L arm 131 sitting Fetus Heart Rate Present Fetus Movement A Yes Comments viral URI testied neg at urg ent care, nausea resolved, efw 68%, +FM plan education and precautions f/u 2 weeks diagnosed GDM, plan dietary worker, gave list reviewed protein vs carb Flowsheet Date 07/21/2025 Gibson Score Blood Edema Fundus Height Fundus Units Glucose Ketones Leukocytes Nitrite Labor Signs Protein Cervic Dilation Cervic Effacement Cervic Station Type Weight in lbs Pre/Post Dialysis Refused Weight 181.841059522283 BP Diastolic BP Location Tested BP Systolic BP Type 78 L arm 127 sitting Fetus Heart Rate Present A 150 Fetus Movement A Yes Comments rpt urine culture +FM review ed blood sugars, meets with dietary worker today, precautions and education f/u 2 weeks [...] Weight in lbs Pre/Post Dialysis Refused Weight 181.520861402390 BP Diastolic BP Location Tested BP Systolic [...] Weight in lbs Pre/Post Dialysis Refused Weight 183.478116035335 BP Diastolic BP Location Tested BP Systolic [...] Type Weight in lbs Pre/Post Dialysis Refused 184.588892945537 BP Diastolic BP Location Tested BP Systolic [...] Type Weight in lbs Pre/Post Dialysis Refused 184.925611772810 BP Diastolic BP Location Tested BP Systolic [...] Type Weight in lbs Pre/Post Dialysis Refused 184.230130595790 BP Diastolic BP Location Tested BP Systolic [...] Weight in lbs Pre/Post Dialysis Refused Weight 184.976080696655 BP Diastolic BP Location Tested BP Systolic [...]
--- OUTSIDE RECORDS SUMMARY | 2025-09-14 00:21 | XMS_ITS | Continuity of Care Document ---
Author Organization [facility], [facility] Address [address] [place] [address] Care Team Providers Care Diver'S Tender Name Role Phone CARLOS ESTRADA Primary [...] Not Available [facility] [address], [place], [address], 03/06/2025 03:58:26 03/06/20 25 03/06/2025 [UNIT Y] ANEUP LOIDY NIPT sex chromosome aneuploidy NOT DETECT ED normal Not Available [facility] [address], [place], [address], 03/06/2025 03:58:26 03/06/20 25 03/06/2025 [UNIT Y] ANEUP LOIDY NIPT monosomy X LOW RISK <1 in 10,000 normal Not Available [facility] [address], [place], [address], 03/06/2025 03:58:26 03/06/20 25 03/06/2025 [UNIT Y] ANEUP LOIDY NIPT trisomy 13 LOW RISK <1 in 10,000 normal Not Available [facility] [address], [place], [address], 03/06/2025 03:58:26 03/06/20 25 03/06/2025 [UNIT Y] ANEUP LOIDY NIPT trisomy 18 LOW RISK <1 in 10,000 normal Not Available [facility] [address], [place], [address], 03/06/2025 03:58:26 03/06/20 25 03/06/2025 [UNIT Y] ANEUP LOIDY NIPT trisomy 21 LOW RISK <1 in 10,000 normal Not Available [facility] [address], [place], [address], 03/06/2025 03:58:26 03/06/20 25 03/06/2025 [UNIT Y] ANEUP LOIDY NIPT sex FEMALE normal Not Available [facility] [address], [place], [address], 03/06/2025 03:58:26 03/06/20 25 03/06/2025 [UNIT Y] ANEUP LOIDY NIPT gestation SINGLE TON normal Not Available [facility] [address], [place], [address], 03/06/2025 03:58:26 03/06/20 25 03/06/2025 [UNIT Y] ANEUP LOIDY NIPT for detailed report, see pdf See PDF normal Not Available [facility] [address], [place], [address], 03/06/2025 03:58:26 03/02/20 25 03/02/2025 CULTU RE: URINE result report SEE RESULT S BELOW Test: Cultu re: Urine Speci men Sourc e: Urine - Clean Catch Speci men Type: Urine Speci men Date: 025 1455 Resul t Date: 025 2138 Resul t Statu s: Final resul t Abnor mal: No Resul ting Lab: [facility] [address] [facility] [address] Tel: CULTU RE ----- ----- ----- --- No growt h in 1 day (dete ction level of 10,00 0 colon ies / ml.) Not Available [facility] (Lab) [address] [facility] [address], [place], [address], 03/03/2025 22:42:27 03/12/2003/12/2025 CULTU RE: URINE result report SEE RESULT S BELOW Test: Cultu re: Urine Speci men Sourc e: Urine - Clean Catch Speci men Type: Urine Speci men Date: 2024 1600 Resul t Date: 2024 0610 Resul t Statu s: Final resul t Abnor mal: No Resul ting Lab: [facility] [address] [facility] [address] Tel: CULTU RE ----- ----- ----- --- No growt h in 1 day (dete ction level of 10,00 0 colon ies / ml.) Not Available [facility] (Lab) [address], [place], [address], 03/14/2025 07:15:03 03/12/2003/12/2025 urina lysis , dipst ick Leukocytes ++ Not Available [facility] [address], [place], [address], 03/12/2025 16:45:06 03/12/20 25 03/12/2025 urina lysis , dipst ick Protein + Not Available [facility] [address], [place], [address], 03/12/2025 16:45:06 03/12/20 03/12/2025 urina lysis , dipst ick pH 5 Not Available [facility] [address], [place], [address], 03/12/2025 16:45:06 03/12/20 25 03/12/2025 urina lysis , dipst ick Blood trace Not Available [facility] [address], [place], [address], 03/12/2025 16:45:06 03/12/20 25 03/12/2025 urina lysis , dipst ick Specific Griffin 1.015 Not Available [facility] [address], [place], [address], 03/12/2025 16:45:06 03/12/20 25 03/12/2025 urina lysis , dipst ick Ketone +++ Not Available [facility] [address], [place], [address], 03/12/2025 16:45:06 03/31/20 25 03/31/2025 TSH, REFLE X FREE T4 TSH 0.42 uIU/m L 0.30-5 .33 Not Available [facility] (Lab) [address], [place], [address], 04/01/2025 03:05:12 03/31/20 25 03/31/2025 CULTU RE: URINE result report SEE RESULT S BELOW Test: Cultu re: Urine Speci men Sourc e: Urine Voide d Speci men Type: Urine Speci men Date: 1710 Resul t Date: 6 Resul t Statu s: Final resul t Abnor mal: No Resul ting Lab: [facility] [address] [facility] [address] Tel: CULTU RE ----- ----- ----- --- Cultu re resul t (>=3 organ isms prese nt) indic ates possi ble conta minat ion. Repea t cultu re if sympt oms indic ate. Not Available [facility] (Lab) [address], [place], [address], 04/01/2025 23:59:19 03/31/20 25 03/31/2025 urina lysis , dipst ick Leukocytes +1 Not Available [facility] [address], [place], [address], 03/31/2025 09:23:13 03/31/20 25 03/31/2025 urina lysis , dipst ick Nitrite normal Not Available [facility] [address], [place], [address], 03/31/2025 09:23:13 03/31/20 25 03/31/2025 urina lysis , dipst ick Urobilinogen normal Not Available [facility] [address], [place], [address], 03/31/2025 09:23:13 03/31/20 25 03/31/2025 urina lysis , dipst ick Protein trace Not Available [facility] [address], [place], [address], 03/31/2025 09:23:13 03/31/20 25 03/31/2025 urina lysis , dipst ick pH 5 Not Available [facility] [address], [place], [address], 03/31/2025 09:23:13 03/31/20 25 03/31/2025 urina lysis , dipst ick Specific Griffin 1.020 Not Available [facility] [address], [place], [address], 03/31/2025 09:23:13 03/31/20 25 03/31/2025 urina lysis , dipst ick Ketone normal Not Available [facility] [address], [place], [address], 03/31/2025 09:23:13 03/31/20 25 03/31/2025 urina lysis , dipst ick Bilirubin normal Not Available [facility] [address], [place], [address], 03/31/2025 09:23:13 03/31/20 25 03/31/2025 urina lysis , dipst ick Glucose normal Not Available [facility] [address], [place], [address], 03/31/2025 09:23:13 03/31/20 25 03/31/2025 urina lysis , dipst ick Appearance normal Not Available [facility] dom[address], [place], [address], 03/31/2025 09:23:13 03/31/20 25 03/31/2025 urina lysis , dipst ick Color normal Not Available [facility] [address], [place], [address], 03/31/2025 09:23:13 04/01/20 25 04/01/2025 WOMEN 'S HEALT H SWAB PLUS, DENIS bacterial vaginosis (bv), tma Negati ve negati ve Not Available [facility] (Lab) [address] [place], [address], 04/02/2025 14:08:45 04/01/20 25 04/01/2025 WOMEN 'S HEALT H SWAB PLUS, DENIS mekhi species, tma Negati ve negati ve Not Available [facility] (Lab) [address] [place], [address], 04/02/2025 14:08:45 04/01/20 25 04/01/2025 WOMEN 'S HEALT H SWAB PLUS, DENIS mekhi glabrata, tma Negati ve negati ve Not Available [facility] (Lab) [address] [place], [address], 04/02/2025 14:08:45 04/01/2004/01/2025 WOMEN 'S HEALT H SWAB PLUS, DENIS trichomonas vaginalis, tma Negati ve negati ve Not Available [facility] (Lab) [address], [place], [address], 04/02/2025 14:08:45 04/01/2004/01/2025 [facility], DENIS chlamydia trachomatis, PCR Negati ve negati ve Not Available [facility] (Lab) [address] [place], [address], 04/02/2025 14:08:45 04/01/2004/01/2025 WOMEN 'S HEALT H SWAB PLUS, DENIS [...] ans, C. tropi calis , C. parap ix is, C. dubli niens is. Testi ng is perfo rmed using the Trans cript ion Media greg Ampli ficat ion metho d. Tests for Radha da glabr anaya, Trich omona s vagin sofía, Chlam ydia trach omati s, and Neiss eria gonor rhoea e are also inclu ded in this panel . Not Available [facility] (Lab) [address], [place], [address], 04/02/2025 14:08:45 04/22/2004/22/2025 CULTU RE: URINE result report SEE RESULT S BELOW Test: Cultu re: Urine Speci men Sourc e: Urine Voide d Speci men Type: Urine Speci men Date: 2024 1314 Resul t Date: 2024 0322 Resul t Statu s: Final resul t Abnor mal: No Resul ting Lab: [facility] [address] [facility] [address] [facility] [address] Tel: CULTU RE ----- ----- ----- --- No growt h in 1 day (dete ction level of 10,00 0 colon ies / ml.) Not Available [facility] (Lab) [address], [place], [address], 04/24/2025 04:28:01 04/22/20 25 04/22/2025 urina lysis , dipst ick Leukocytes + Not Available [facility] [address], [place], [address], 04/22/2025 10:01:51 04/22/20 25 04/22/2025 urina lysis , dipst ick Protein + Not Available [facility] [address], [place], [address], 04/22/2025 10:01:51 04/22/20 25 04/22/2025 urina lysis , dipst ick pH 8 Not Available [facility] [address], [place], [address], 04/22/2025 10:01:51 04/22/20 25 04/22/2025 urina lysis , dipst ick Blood + Not Available [facility] [address], [place], [address], 04/22/2025 10:01:51 04/22/20 25 04/22/2025 urina lysis , dipst ick Specific Griffin 1.010 Not Available [facility] [address], [place], [address], 04/22/2025 10:01:51 04/22/2004/22/2025 urina lysis , dipst ick Ketone + Not Available [facility] [address], [place], [address], 04/22/2025 10:01:51 06/23/2006/23/2025 HEMAT OCRIT (HCT) HCT 35.6 % (based on docume nted legal sex) 34.0-4 5.0 Not Available [facility] (Lab) [address], [place], [address], 06/24/2025 11:45:32 06/23/20 25 06/23/2025 HEMOG LOBIN (HGB) HGB 11.1 g/dL (based on docume nted legal sex) 11.6-1 5.4 low Not Available [facility] (Lab) [address], [place], [address], 06/24/2025 11:45:32 06/23/20 25 06/23/2025 GTT - GESTA ROLAND L JOSE N, ACOG OB glucose, 1 hour screen 180 mg/dL 70-135 high Not Available [facility] (Lab) [address] [place], [address], 06/24/2025 11:45:33 06/23/20 25 06/23/2025 HIV 1/2 ANTIG EN/AN TIBOD Y, REFLE X CONFI RMATI ON HIV antigen/anti body Nonrea ctive nonrea ctive HIV-1 antig en and HIV-1 /HIV- 2 antib odies were not detec greg. No labor atory evide nce of HIV infec tion. Not Available [facility] (Lab) [address], [place], [address], 06/24/2025 11:45:33 08/06/23/2025 RPR SCREE N, REFLE X TITER /CONF IRMAT ION RPR qualitative Nonrea ctive nonrea ctive Not Available [facility] (Lab) [address], [place], [address], 06/24/2025 11:45:34 07/21/2007/21/2025 CULTU RE: URINE result report SEE RESULT S BELOW Test: Cultu re: Urine Speci men Sourc e: Urine - Clean Catch Speci men Type: Urine Speci men Date: 2024 1024 Resul t Date: 2024 0252 Resul t Statu s: Final resul t Abnor mal: No Resul ting Lab: [facility] [address] [facility] [address] Tel: CULTU RE ----- ----- ----- --- No growt h in 1 day (dete ction level of 10,00 0 colon ies / ml.) Not Available [facility] (Lab) [address], [place], [address], 07/23/2025 03:57:01 07/21/2007/21/2025 urina lysis , dipst ick Leukocytes ++ Not Available [address], [place], [address], 07/21/2025 11:03:04 07/21/20 25 07/21/2025 urina lysis , dipst ick Nitrite neg Not Available [facility] [address], [place], [address], 07/21/2025 11:03:04 07/21/20 25 07/21/2025 urina lysis , dipst ick Urobilinogen neg Not Available [facility] [address], [place], [address], 07/21/2025 11:03:04 07/21/20 25 07/21/2025 urina lysis , dipst ick Protein + Not Available [facility] [address], [place], [address], 07/21/2025 11:03:04 07/21/20 25 07/21/2025 urina lysis , dipst ick pH 5 Not Available [facility] [address], [place], [address], 07/21/2025 11:03:04 07/21/20 25 07/21/2025 urina lysis , dipst ick Specific Griffin 1.030 Not Available [facility] [address], [place], [address], 07/21/2025 11:03:04 07/21/20 25 07/21/2025 urina lysis , dipst ick Ketone +++ Not Available [facility] [address], [place], [address], 07/21/2025 11:03:04 07/21/20 25 07/21/2025 urina lysis , dipst ick Bilirubin neg Not Available [facility] castillo [address], [place], [address], 07/21/2025 11:03:04 07/21/20 25 07/21/2025 urina lysis , dipst ick Glucose neg Not Available [facility] [address], [place], [address], 07/21/2025 11:03:04 07/21/20 25 07/21/2025 urina lysis , dipst ick Appearance cloudy Not Available [address], [place], [address], 07/21/2025 11:03:04 07/21/20 25 07/21/2025 urina lysis , dipst ick Color dark Not Available [facility] [address], [place], [address], 07/21/2025 11:03:04 08/04/2008/04/2025 CMP(C OMPRE HENSI VE METAB OLIC PANEL ) sodium 138 mmol/ L 133-14 6 Not Available [facility] (Lab) [address], [place], [address], 08/05/2025 13:39:18 08/04/20 25 08/04/2025 CMP(C OMPRE HENSI VE METAB OLIC PANEL ) potassium 4.0 mmol/ L 3.5-5. 1 Not Available [facility] (Lab) [address], [place], [address], 08/05/2025 13:39:18 08/04/20 25 08/04/2025 CMP(C OMPRE HENSI VE METAB OLIC PANEL ) chloride 105 mmol/ L 98-107 Not Available [facility] (Lab) [address], [place], [address], 08/05/2025 13:39:18 08/04/20 25 08/04/2025 CMP(C OMPRE HENSI VE METAB OLIC PANEL ) carbon dioxide 25 mmol/ L 21-31 Not Available [facility] (Lab) [address], [place], [address], 08/05/2025 13:39:18 08/04/20 25 08/04/2025 CMP(C OMPRE HENSI VE METAB OLIC PANEL ) anion gap 8 mmol/ L 4-13 Not Available [facility] (Lab) [address] [place], [address], 08/05/2025 13:39:18 08/04/20 25 08/04/2025 CMP(C OMPRE HENSI VE METAB OLIC PANEL ) blood urea nitrogen 10 mg/dL 7-25 Not Available [facility] (Lab) [address], [place], [address], 08/05/2025 13:39:18 08/04/20 25 08/04/2025 CMP(C OMPRE HENSI VE METAB OLIC PANEL ) creatinine 0.41 mg/dL 0.60-1 .30 low Not Available [facility] (Lab) [address], [place], [address], 08/05/2025 13:39:18 08/04/20 25 08/04/2025 CMP(C OMPRE HENSI VE METAB OLIC PANEL ) egfrcr (CKD-epi 2020) >90 mL/mi n/1.7 3_m2 >=60 Not Available [facility] (Lab) [address], [place], [address], 08/05/2025 13:39:18 08/04/20 25 08/04/2025 CMP(C OMPRE HENSI VE METAB OLIC PANEL ) calcium 8.9 mg/dL 8.3-10 .5 Not Available [facility] (Lab) [address], [place], [address], 08/05/2025 13:39:18 08/04/20 25 08/04/2025 CMP(C OMPRE HENSI VE METAB OLIC PANEL ) glucose 116 mg/dL 70-100 high Not Available [facility] (Lab) [address], [place], [address], 08/05/2025 13:39:18 08/04/20 25 08/04/2025 CMP(C OMPRE HENSI VE METAB OLIC PANEL ) protein, total 6.1 g/dL 6.4-8. 3 low Not Available [facility] (Lab) [address], [place], [address], 08/05/2025 13:39:18 08/04/20 25 08/04/2025 CMP(C OMPRE HENSI VE METAB OLIC PANEL ) albumin 3.5 g/dL 3.5-5. 0 Not Available [facility] (Lab) [address], [place], [address], 08/05/2025 13:39:18 08/04/20 25 08/04/2025 CMP(C OMPRE HENSI VE METAB OLIC PANEL ) ALT 11 units /L 9-43 Not Available [facility] (Lab) [address], [place], [address], 08/05/2025 13:39:18 08/04/20 25 08/04/2025 CMP(C OMPRE HENSI VE METAB OLIC PANEL ) alkaline phosphatase 98 units /L 34-104 Not Available [facility] (Lab) [address], [place], [address], 08/05/2025 13:39:18 08/04/20 25 08/04/2025 CMP(C OMPRE HENSI VE METAB OLIC PANEL ) AST 15 units /L 13-39 Not Available [facility] (Lab) [address], [place], [address], 08/05/2025 13:39:18 08/04/20 25 08/04/2025 CMP(C OMPRE HENSI VE METAB OLIC PANEL ) bilirubin, total 0.3 mg/dL 0.2-1. 2 Not Available [facility] (Lab) [address], [place], [address], 08/05/2025 13:39:18 08/04/20 25 08/04/2025 BILE ACIDS , TOTAL bile acids, total 4 umol/ L 0-10 Test Perfo rmed by: Luke hernández rn [facility] [address] [address] Not Available [facility] (Lab) [address], [place], [address], 08/05/2025 13:39:19 03/02/20 25 03/02/2025 US, obste tric, nucha l trans lucen cy No observ ation record ed. [email or web address] [facility] [address], [place], [address], 03/02/2025 13:35:30 03/02/20 25 03/02/2025 US, obste tric, nucha l trans lucen cy No observ ation record ed. [email or web address] [address], [place], [address], 03/03/2025 14:08:39 03/08/20 25 03/08/2025 US, obste tric, 1st trime ster No observ ation record ed. [email or web address] [facility] [address], [place], [address], 03/08/2025 12:22:22 03/08/20 25 03/08/2025 US, obste tric, 1st trime ster No observ ation record ed. [email or web address] [address], [place], [address], 03/10/2025 15:03:13 04/01/20 25 03/24/2025 qamar r monit or No observ ation record ed. [address] [facility], [place], [address], 04/08/2025 12:36:45 04/01/20 25 03/22/2025 qamar r monit or No observ ation record ed. [address] (Pulmonary) [address] [place] [address] [address] [facility], [place], [address], 04/06/2025 08:59:34 04/20/20 25 04/20/2025 US, obste tric, limit ed No observ ation record ed. [email or web address] [facility] [address], [place], [address], 04/20/2025 17:39:30 04/20/20 25 04/20/2025 US, obste tric, follo w-up No observ ation record ed. [email or web address] [address], [place], [address], 04/23/2025 08:32:54 04/28/20 25 04/28/2025 US, obste tric, 2nd or 3rd trime ster No observ ation record ed. [email or web address] [facility] [address], [place], [address], 04/28/2025 17:48:42 04/28/20 25 04/28/2025 US, obste tric, 2nd or 3rd trime ster No observ ation record ed. Esha [address] [facility] [address], [place], [address], 05/04/2025 22:16:11 05/07/20 25 05/07/2025 non-s tress test No observ ation record ed. [address], [place], [address], 05/28/2025 13:33:54 05/21/20 25 05/21/2025 CT, head + brain , w/o contr ast No observ ation record ed. [address], [place], [address], 05/24/2025 13:48:57 05/28/20 25 05/28/2025 US, obste tric, follo w-up No observ ation record ed. [email or web address] [address], [place], [address], 05/28/2025 17:32:34 05/28/20 25 05/28/2025 US, obste tric, follo w-up No observ ation record ed. [email or web address] [address], [place], [address], 06/01/2025 15:13:13 06/08/20 25 06/07/2025 US, obste tric, follo w-up No observ ation record ed. [email or web address] [facility] [address] , [place], [address], 06/15/2025 10:53:46 07/07/2007/07/2025 US, obste tric, follo w-up No observ ation record ed. [email or web address] [facility] [address], [place], [address], 07/07/2025 13:18:01 07/07/20 25 07/07/2025 US, obste tric, follo w-up No observ ation record ed. [email or web address] [address], [place], [address], 07/07/2025 11:29:37 08/04/2008/04/2025 US, obste tric, follo w-up No observ ation record ed. [email or web address] [facility] [address], [place], [address], 08/04/2025 15:08:50 08/04/20 25 08/04/2025 US, obste tric, follo w-up No observ ation record ed. [email or web address] [address], [place], [address], 08/06/2025 10:41:50 08/11/2008/11/2025 non-s tress test No observ ation record ed. [email or web address] [facility] [address], [place], [address], 08/11/2025 17:37:52 08/11/20 non-s tress test No observ ation record ed. [email or web address] [facility] [address], [place], [address], 08/11/2025 17:38:11 08/15/20 25 08/15/2025 non-s tress test No observ ation record ed. [address], [place], [address], 08/21/2025 10:18:57 08/15/2008/15/2025 US, obste tric, bioph ysica l profi le No observ ation record ed. [email or web address] [facility] [address], [place], [address], 08/17/2025 10:50:53 08/18/2008/18/2025 US, obste tric, bioph ysica l profi le + non-s tress test No observ ation record ed. [email or web address] [facility] [address], [place], [address], 08/18/2025 10:21:39 08/18/2008/18/2025 US, obste tric, bioph ysica l profi le + non-s tress test No observ ation record ed. [email or web address] [address], [place], [address], 08/18/2025 10:35:44 08/18/2008/18/2025 non-s tress test No observ ation record ed. [email or web address] [facility] [address], [place], [address], 08/18/2025 17:34:03 08/18/20 non-s tress test No observ ation record ed. [email or web address] [facility] [address], [place], [address], 08/18/2025 16:06:09 08/25/2008/25/2025 US, obste tric, bioph ysica l profi le + non-s tress test No observ ation record ed. [email or web address] [facility] [address], [place], [address], 08/25/2025 18:52:06 08/25/2008/25/2025 US, obste tric, follo w-up No observ ation record ed. [email or web address] [address], [place], [address], 08/25/2025 15:47:28 08/25/2008/25/2025 non-s tress test No observ ation record ed. [address], [place], [address], 08/25/2025 18:12:15 08/25/20 non-s tress test No observ ation record ed. [email or web address], [place], [address], 08/25/2025 17:21:19 08/30/20 25 08/30/2025 imagi ng/di agnos tic resul t No observ ation record ed. [address] [facility], [place], [address], 08/31/2025 18:17:32 09/01/20 25 09/01/2025 non-s tress test No observ ation record ed. [address] [facility], [place], [address], 09/13/2025 11:32:22 09/01/20 25 09/01/2025 US, obste tric No observ ation record ed. [address] [facility], [place], [address], 09/02/2025 15:56:01 09/01/20 25 09/01/2025 non-s tress test No observ ation record ed. [address] [place] [address], [id number], 09/02/2025 14:32:38 Result Notes None recorded. Problems Name Problem SNOMED Code Status Onset Date Resolution Date Notes Provider Name and Address Organization Details Recorded Time [facility] 919679405 Completed phenerga n now prn Asia arias [facility] [place] - [facility] 2 16:43:51 Anxiety in pregnanc y [id number] Completed will continue to monitor Asia ramos [facility] 2 16:43:51 Past pregnanc y history of gestatio nal diabetes mellitus [id number] Completed Early 1 hr GTT @ 20wks 11/03 APPT Asia ramos [facility] 2 16:43:51 Spinal muscular atrophy [id number] Completed Carrier - Not in contact with FOB. Asia ramos [facility] 2 16:43:51 Anxiety 18487276 Completed prozac Karina armos [facility] 4 11:00:46 Nausea 181969837 Completed d/c zofran pump 11/08 per pt request Karina ramos, [facility] 4 11:00:46 Postpart um hemorrha ge [id number] Completed 2017 with d&c Karina ramos, [facility] 4 11:00:46 Normal pregnanc y in multigra jessy [id number] 77718 Completed 201907/05/2021 Encounte r for supervis ion of other normal pregnanc y, 3rd trimeste r;Record ed Elsewher e: No Locat ion: [facility] S ource: EHR Meat And Poultry Inspector yvrose: N Dennis ce ID: 0001 Gigi lable Time: 10:45:00 AM Karina ramos [facility] 1 10:15:27 Gestatio n period, 37 weeks 09032205 Completed 201907/05/2021 37 weeks gestatio n of pregnanc y;Record ed Elsewher e: No Locat ion: [facility] S ource: EHR Meat And Poultry Inspector yvrose: N Practi ce ID: 0001 Gigi lable Time: 09:00:00 AM Karina ramos [facility] 10:15:[address] Concept Completed 201907/05/2021 Matern care for abnlt fetl hrt rate or rhym, 3rd tri, unsp;Rec orded Elsewher e: No Locat ion: [facility] S ource: EHR Meat And Poultry Inspector yvrose: N Practi ce ID: 0001 Gigi lable Time: 08:45:00 AM Karina ramos, [facility] 10:15:29 Gestatio nal diabetes mellitus 54553957 Completed 201907/05/2021 Gestatio nal diabetes mellitus in pregnanc y, diet controll ed;Recor ded Elsewher e: No Locat ion: [facility] S ource: EHR Meat And Poultry Inspector yvrose: N Natalyati ce ID: 0001 Gigi lable Time: 11:45:00 AM Karina ramos, [facility] 10:15:25 Gestatio n period, 38 weeks 59193248 Completed 201907/05/2021 38 weeks gestatio n of pregnanc y;Record ed Elsewher e: No Locat ion: [facility] S ource: EHR Meat And Poultry Inspector yvrose: N Natalyati ce ID: 0001 Gigi lable Time: 11:30:00 AM Karina ramos [facility] 10:15:13 Amenorrh ea 10634282 Completed 202007/10/2021 Tammi ramos [facility] 13:08:35 Pregnanc y 69514586 Completed 202003/29/2022 Karina ramos [facility] 4 11:00:49 Pregnanc y 46410185 Completed 202304/22/2024 Karina Burroughs null, [facility] 4 11:00:49 Headache 37378752 Active 2023 Karina Heike null, [facility] 5 16:19:28 Pregnanc y 21389801 Active 2023 Karina Burroughs null, [facility] 5 16:19:28 Uncompli cated moderate persiste nt asthma 481981745 Active 2024 albutero l prn Shawn Bradley MD [address], [place], [address], [facility] 5 13:08:36 Anxiety 89604507 Active 2024 sertrali ne started 03/02/25 changed to prozac 10 on Shawn Bradley MD [address], [place], [address], [facility] 5 17:05:48 Nausea and vomiting 05825003 Active 2024 Shawn Bradley MD [address], [place], [address], [facility] 5 13:20:27 Placenta circumva llata 2264713 Active 2024 32wk growth us Ryann Castro null, [facility] 5 09:44:35 Frequent headache 249353182 Active 2024 transpor t to [facility] 05/21, discharg e 05/23 [facility] referral faxed 05/24 [facility] pending per KAJAL Pittman [facility] unable to see pt due to insuranc e 05/[address] 07/05/25 Level US & Consult (see [facility] consult zayas recommen dations ) regimen prn Imitrex 50mg for acute migraine , vitamin B2 (Ribofla mesfin) 400mg, Coenzyme q10 300mg and magnesiu m oxide 200 to 600mg daily. minimize use of Excedrin or Tylenol to no more than 2-3 times a week. Ryann ramos [facility] 5 10:55:26 Abnormal placenta affectin g manageme nt of mother 29847778 Active 2024 [facility] serial growth us Ryann ramos [facility] 5 10:46:25 Iron deficien cy anemia 42595084 Active 2024 [facility] tx venofer 200mg x1 HGB 10.6 Rynan ramos [facility] 15:21:25 Gestatio nal diabetes mellitus 65746251 Active 2024 checking bs QID - ruled in GDM [facility] 14:36:52 Notes:Order faxed to [facility] r access 08/10 for PICC line, and home health already caring for ptHilda Gilbert RN at [phone] Problem Notes None recorded. Procedures Surgical History Date Name Laterality Status Provider Name and Address Organization Details Recorded Time 025 SALPINGECTOMY, LAPAROSCOPIC (SURG) completed Not Available [facility] 09/06/2025 11:19:17 025 Date of Last Pap Smear completed Karina Burroughs [facility] 01/28/2025 11:19:42 024 Nexplanon Removal completed Shawn Bradley MD [address], [place], [address], [facility] 08/05/2024 15:09:58 024 Control Implant Insertion completed Anju Mcnamara CNM [address], [place], [address], [facility] 05/08/2024 17:59:34 024 cholecystectomy completed Karina Burroughs [facility] 03/31/2025 09:18:57 018 Dilation and Curettage completed Karina Burroughs [facility] 07/05/2021 10:17:50 Imaging Results None recorded. Procedure Notes None recorded. Medical Equipment None Reported. Allergies Allergen ID Allergen Name Allergen Category Reaction Reaction Severity Criticality Documentation Date Start Date Code Code System Note Provider Name and Address Organization Details Recorded Time 53718 terbutali ne medicatio n anaphylax is Not available Not available 01/27/20252021 95896 RxNorm Karina Burroughs [facility] 16:19:27 34182 amoxicill in medicatio n Not available Not available Not available 09/10/2025 723 RxNorm Not Available [employer] - prod 16:39:37 45817 terbinafi ne medicatio n anaphylax is Not available [facility] 09/10/20252024 77254 RxNorm Not Available [employer] - prod 16:40:54 Medications Name [...] Prescrib ed Elsewher e: Yes Loca tion: [facility] M odify By: prabhjot barrera DateTime [...] n (supplie d by office) insert lot [id number] Exp 01/2026 Not Available Not Available Not Available 28 mg iron-800 mcg tablet 07/05 completed Prescrib ed Elsewher e: Yes Loca tion: [facility] anna [facility] M odify By: prabhjot barrera DateTime : 01/14/20 10:45:00 AM Not Available Not Available Not Available lidocaine 5 % topical ointment APPLY OINTMENT EXTERNAL LY TO RIBS THREE TIMES DAILY NEEDED 01/14 completed Not Available Not Available Not Available AREA FORESTER-PNV-DH A 28 mg iron-1 mg-200 mg capsule [...] Not Available Not Available Not Available Vitals None Recorded Social History Question Answer Notes LastModified by Organizat ion Details LastModified Time Tobacco Smoking Status Former Smoker Karina Burroughs [facility] 07/05/2021 09:06:21 If You Are , What Was Your Level Of Alcohol Consumption Prior To ? Occasional [email or web address] Information not available 03/31/2025 Are You Blind Or Do You Have Difficulty Seeing? No [email or web address] Information not available 07/05/2021 What Is Your Level Of Caffeine Consumption? Heavy [email or web address] Information not available 07/05/2021 In The 14 Days Before Symptom Onset, Have You Had Close Contact With A Laboratory-confir med COVID-19 While That Case Was Ill? No [email or web address] Information not available 07/05/2021 In The 14 Days Before Symptom Onset, Have You Had Close Contact With A Person Who Is Under Investigation For COVID-19 While That Person Was Ill? No [email or web address] Information not available 07/05/2021 Have You Been To An Area Known To Be High Risk For COVID-19? No [email or web address] Information not available 07/05/2021 Are You Deaf Or Do You Have Serious Difficulty Hearing? No [email or web address] Information not available 07/05/2021 What Type Of Diet Are You Following? REGULAR [email or web address] Information not available 07/05/2021 Which Illicit Or Recreational Drugs Have You Used? Marijuana Information not available 07/05/2021 Have You Ever Been Counseled For Unhealthy Alcohol Use? No [email or web address] Information not available 07/05/2021 Do You Use Your Seat Belt Or Car Seat Routinely? Yes [email or web address] Information not available 07/05/2021 Do You Have Smoke And Carbon Monoxide Detectors In Your Home? Yes [email or web address] Information not available 07/05/2021 Do You Use Sunscreen Routinely? Yes [email or web address] Information not available 07/05/2021 Has Tobacco Cessation Counseling Been Provided? No [email or web address] Information not available 07/05/2021 Have You Used IV Drugs? No [email or web address] Information not available 07/05/2021 Do You Have Difficulty Walking Or Climbing Stairs? No [email or web address] Information not available 12/06/2021 Sex: Unknown Functional Status Question Answer Note LastModified by Organizat ion Details LastModified Time Do you use any illicit or recreational drugs? Yes [email or web address] Information not available 07/05/2021 Do you or have you ever used any other forms of tobacco or nicotine? Yes [email or web address] Information not available 07/05/2021 What is your level of alcohol consumption? None [email or web address] Information not available 03/31/2025 Do you or have you ever used smokeless tobacco? Never used smokeless tobacco [email or web address] Information not available 07/05/2021 Are you able to walk independently without assistance or assistive devices? YESWOREST [email or web address] Information not available 07/05/2021 Are you able to care for yourself independently? Yes [email or web address] Information not available 12/06/2021 Do you have difficulty dressing, bathing, grooming, or toileting? No [email or web address] Information not available 12/06/2021 Do you or have you ever used e-cigarettes or vape? Current user of electronic cigarettes [email or web address] Information not available 07/05/2021 What is your exercise level? Occasional [email or web address] Information not available 07/05/2021 Mental Status Question Answer Note LastModified by Organization D etails LastModified Time Do you feel stressed (tense, restless, nervous, or anxious, or unable to sleep at night)? [id number] Information not available 07/05/2021 Family History Relationship Description Onset Age of this Age Resolved Age Notes LastModified by Organization Details LastModified Time Father No current problems or disability [email or web address] Not available 05/2021 09:06:31 Mother No current problems or disability [email or web address] Not available 05/2021 09:06:31 Medical History Condition Response Allergies (Food, seasonal, environmental ) N Other N Drug/Latex Allergies/Reactions N Blood Transfusion N Breast Cancer N Dermatologic Disorders N Lung Disease Y Defects or Inherited Disease N Breast Problem N Gestational Diabetes Y Hematologic disorders N Anesthesia Complications N History of STI Y Deep Vein Thrombosis N Polycystic ovary syndrome N Anxiety Disorder Y Autoimmune disease N Arthritis N Polyps N Infertility N Acid Reflux (GERD) N History of abnormal pap N Cancer N Varicosities N Stroke N Neurologic/Epilepsy N Endometriosis N High Cholesterol N Fibromyalgia N Headaches Y Kidney Disease N Heart Problems N Thyroid [...] ICD10 Code Diagnosis IMO Codes Diagnosis Note [id number] Shawn Bradley MD [facility] [address] [place] [address] 08/18/2025 09:40:51 08/18/2025 10:15:47 Gestational diabetes mellitus 10520081 O24.414 Z3A.36 16126656 [id number] [facility] [address] [place] [address] 08/18/2025 09:41:06 08/18/2025 11:24:04 Gestation period, 36 weeks 34778232 Z3A.36 8575944 cont pnv [id number] [facility] [address] [place] [address] 08/18/2025 09:41:16 08/18/2025 16:17:31 Gestational diabetes mellitus class A2 86617485 O24.414 76250519 [id number] Shawn Bradley MD [facility] [address] [place] [address] 08/25/2025 14:26:29 08/25/2025 15:14:02 Gestational diabetes mellitus 54688600 O24.414 78031170 [id number] Anju Mcnamara [facility] [address] [address] 08/25/2025 14:26:57 08/25/2025 15:53:52 Gestation period, 37 weeks 13306638 Z3A.37 0693063 continue vitamin [id number] Anju Mcnamara [facility] [address] [address] 08/25/2025 16:48:00 08/25/2025 17:20:42 Gestational diabetes mellitus 25803791 O24.419 29945388 [id number] Shawn Bradley MD [facility] [address] [address] 09/13/2025 15:30:32 09/13/2025 20:43:16 Health Concerns Section Related Observation LastModified by Organization Detai ls LastModified Time None Recorded Concern Status LastModified by Organization Details LastModified Time None Recorded Payers Encounter Date Sequence Insurance Name Policy Number Policy Roberts Covered Member ID Roberts Member ID Guarantor Name 09/13/2025 1 [facility] (MEDICAID HMO) [id number] Yuni Mejia [id number] Yuni Mejia OBGyveronique Episode Ob Episode Information Episode Created Date Number of Fetuses Patient Bloodtype Patient rh Status Prepregnancy Weight lbs Domestic Partner Domestic Partner Phone Father Name Erp Technical Lead Status 03/02/20 25 1 B Positive 164 OPEN Fetus Data First Name Last Name Admitted to NICU Weight (g) Sex Living Outcome Pediatric Complications Fetus ID Race Codes Race Delivery Type [id number] Problems Problem Notes SDH form completed 5GI consult Tachycardia Holter monitor 72 order- pt sent back on 03-27-25 Cardiology referral faxed per Dr Martínez office calling pt 04/21 to schedule consult scheduled 05/11 11:15AM Problem Name Start Date End Date Resolution Snomed Code Not e Uncomplicated moderate persistent asthma 03/02/2025 825057441 albuterol prn Abnormal placenta affecting management of mother 05/04/2025 07024814 [facility] serial grow th us Iron deficiency anemia 05/25/2025 81260787 [facility] tx [place] 200mg x1 HGB 10.6 Nausea and vomiting 03/02/2025 84933818 Anxiety 03/02/2025 26055328 sertralin e started 03/02/25 changed to prozac 10 on Gestational diabetes mellitus 07/08/2025 32034002 checking bs QID - ruled in GDM Referral faxed to [facility] 07/07 Frequent headache 05/03/2025 [id number] [place] to [facility] 05/21, discharge 05/23 [facility] referral faxed 05/24 [facility] Neurology consult pending per KAJAL Pittman [facility]- Neuro [facility] unable to see pt due to insurance 05/25[facility] 07/05/25 Level US & Consult (see [facility] consult zayas recommendations ) regimen prn Imitrex 50mg for acute migraine, vitamin B2 (Riboflavin) 400mg, Coenzyme q10 300mg and magnesium oxide 200 to 600mg daily. minimize use of Excedrin or Tylenol to no more than 2-3 times a week. 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/2025 6891552 32wk growth us Jun Calculation Initial Jun [...] Weight in lbs Pre/Post Dialysis Refused Weight 158.579873288357 BP Diastolic BP Location Tested BP Systolic [...] Weight in lbs Pre/Post Dialysis Refused Weight 158.448856034014 BP Diastolic BP Location Tested BP Systolic [...] Weight in lbs Pre/Post Dialysis Refused Weight 162.453165477111 BP Diastolic BP Location Tested BP Systolic BP Type 78 123 Fetus Heart Rate Present A 148 Fetus Movement A Yes Comments Patient is having having ronny n, cramping and vaginal discharge. went to ed exam done cultures and rx sent, ?FM, await director dermatology results rfilled zofran, precautions and education f/u [...] Type Weight in lbs Pre/Post Dialysis Refused 168.993833133378 BP Diastolic BP Location Tested BP Systolic [...] Type Weight in lbs Pre/Post Dialysis Refused 169.042897672742 BP Diastolic BP Location Tested BP Systolic [...] Weight in lbs Pre/Post Dialysis Refused Weight 175.330599512989 BP Diastolic BP Location Tested BP Systolic [...] Weight in lbs Pre/Post Dialysis Refused Weight 182.797421830315 BP Diastolic BP Location Tested BP Systolic [...] Weight in lbs Pre/Post Dialysis Refused Weight 181.773420102194 BP Diastolic BP Location Tested BP Systolic BP Type 73 L arm 131 sitting Fetus Heart Rate Present Fetus Movement A Yes Comments viral URI testied neg at urg ent care, nausea resolved, efw 68%, +FM plan education and precautions f/u 2 weeks diagnosed GDM, plan double needle operator, gave list reviewed protein vs carb Flowsheet Date 07/21/2025 Gibson Score Blood Edema Fundus Height Fundus Units Glucose Ketones Leukocytes Nitrite Labor Signs Protein Cervic Dilation Cervic Effacement Cervic Station Type Weight in lbs Pre/Post Dialysis Refused Weight 181.522951004857 BP Diastolic BP Location Tested BP Systolic BP Type 78 L arm 127 sitting Fetus Heart Rate Present A 150 Fetus Movement A Yes Comments rpt urine culture +FM review ed blood sugars, meets with double needle operator today, precautions and education f/u 2 weeks [...] Weight in lbs Pre/Post Dialysis Refused Weight 181.925366023786 BP Diastolic BP Location Tested BP Systolic [...] Weight in lbs Pre/Post Dialysis Refused Weight 183.528615188226 BP Diastolic BP Location Tested BP Systolic [...] Type Weight in lbs Pre/Post Dialysis Refused 184.239760433349 BP Diastolic BP Location Tested BP Systolic [...] Type Weight in lbs Pre/Post Dialysis Refused 184.428553699819 BP Diastolic BP Location Tested BP Systolic [...] Type Weight in lbs Pre/Post Dialysis Refused 184.488163329219 BP Diastolic BP Location Tested BP Systolic [...] Weight in lbs Pre/Post Dialysis Refused Weight 184.197019681708 BP Diastolic BP Location Tested BP Systolic [...]
--- OUTSIDE RECORDS SUMMARY | 2025-09-14 00:21 | XMS_ITS | Continuity of Care Document ---
Author Organization [facility], [facility] Address [address] [place] [address] [place] [address] Care Team Providers Care Quality Coordinator Name Role Phone CARLOS ESTRADA Primary Care Provider Assessment No assessment recorded. Plan of Treatment Reminders Order Date Submit Date Provider Last Modified By Organization Details Last Modified Time Details Appointments None record ed. Lab None record ed. Referral None record ed. Procedures None record ed. Surgeries None record ed. Imaging non-st ress test 025 08/25/20 25 [email or web address] [place], [address], [place], [address], 17:20:42 Medication Orders None record ed. Patient TargetsNo targets recorded. Patient InstructionsNo instructions recorded. Reason for Referral None Reported. Results Created Date Observation Date Name Description Value Unit Range Abnormal Flag Note LastModifiedBy Organization Detail LastModifiedTime 03/06/20 25 03/06/2025 [UNIT Y] ANEUP LOIDY NIPT fraction 5.7% normal Not Available [facility] [address], [place], [address], 03/06/2025 03:58:26 03/06/20 25 03/06/2025 [UNIT Y] ANEUP LOIDY NIPT sex chromosome aneuploidy NOT DETECT ED normal Not Available [facility] [address], [place], [address], 03/06/2025 03:58:26 03/06/20 25 03/06/2025 [UNIT Y] ANEUP LOIDY NIPT monosomy X LOW RISK <1 in 10,000 normal Not Available [facility] [address], [place], [address], 03/06/2025 03:58:26 03/06/20 25 03/06/2025 [UNIT Y] ANEUP LOIDY NIPT trisomy 13 LOW RISK <1 in 10,000 normal Not Available [facility] [address], [place], [address], 03/06/2025 03:58:26 03/06/20 25 03/06/2025 [UNIT Y] ANEUP LOIDY NIPT trisomy 18 LOW RISK <1 in 10,000 normal Not Available [facility] [address], [place], [address], 03/06/2025 03:58:26 03/06/20 25 03/06/2025 [UNIT Y] ANEUP LOIDY NIPT trisomy 21 LOW RISK <1 in 10,000 normal Not Available [facility] [address], [place], [address], 03/06/2025 03:58:26 03/06/20 25 03/06/2025 [UNIT Y] ANEUP LOIDY NIPT sex FEMALE normal Not Available [facility] [address], [place], [address], 03/06/2025 03:58:26 03/06/20 25 03/06/2025 [UNIT Y] ANEUP LOIDY NIPT gestation SINGLE TON normal Not Available [facility] [address], [place], [address], 03/06/2025 03:58:26 03/06/20 25 03/06/2025 [UNIT Y] ANEUP LOIDY NIPT for detailed report, see pdf See PDF normal Not Available [facility] [address], [place], [address], 03/06/2025 03:58:26 03/02/20 25 03/02/2025 CULTU RE: URINE result report SEE RESULT S BELOW Test: Cultu re: Urine Speci men Sourc e: Urine - Clean Catch Speci men Type: Urine Speci men Date: 025 1455 Resul t Date: 025 2138 Resul t Statu s: Final resul t Abnor mal: No Resul ting Lab: [facility] [address] [facility] [address] Tel: CULTU RE ----- ----- ----- --- No growt h in 1 day (dete ction level of 10,00 0 colon ies / ml.) Not Available [facility] (Lab) [address] [facility], [place], [address], 03/03/2025 22:42:27 03/12/2003/12/2025 CULTU RE: URINE result report SEE RESULT S BELOW Test: Cultu re: Urine Speci men Sourc e: Urine - Clean Catch Speci men Type: Urine Speci men Date: 2024 1600 Resul t Date: 2024 0610 Resul t Statu s: Final resul t Abnor mal: No Resul ting Lab: [facility] [address] [facility] [address] Tel: CULTU RE ----- ----- ----- --- No growt h in 1 day (dete ction level of 10,00 0 colon ies / ml.) Not Available [facility] (Lab) [address] [facility], [place], [address], 03/14/2025 07:15:03 03/12/2003/12/2025 urina lysis , dipst ick Leukocytes ++ Not Available [address], [place], [address], 03/12/2025 16:45:06 03/12/2003/12/2025 urina lysis , dipst ick Protein + Not Available [place] [address], [place], [address], 03/12/2025 16:45:06 03/12/20 25 03/12/2025 urina lysis , dipst ick pH 5 Not Available [place] [address], [place], [address], 03/12/2025 16:45:06 03/12/20 25 03/12/2025 urina lysis , dipst ick Blood trace Not Available [place] [address], [place], [address], 03/12/2025 16:45:06 03/12/20 25 03/12/2025 urina lysis , dipst ick Specific Nixon 1.015 Not Available [facility] [address], [place], [address], 03/12/2025 16:45:06 03/12/20 25 03/12/2025 urina lysis , dipst ick Ketone +++ Not Available [place] [address], [place], [address], 03/12/2025 16:45:06 03/31/20 25 03/31/2025 TSH, REFLE X FREE T4 TSH 0.42 uIU/m L 0.30-5 .33 Not Available [facility] (Lab) [address], [place], [address], 04/01/2025 03:05:12 03/31/20 25 03/31/2025 CULTU RE: URINE result report SEE RESULT S BELOW Test: Cultu re: Urine Speci men Sourc e: Urine Voide d Speci men Type: Urine Speci men Date: 1710 Resul t Date: 6 Resul t Statu s: Final resul t Abnor mal: No Resul ting Lab: [facility] [address] [facility] [address] Tel: CULTU RE ----- ----- ----- --- Cultu re resul t (>=3 organ isms prese nt) indic ates possi ble conta minat ion. Repea t cultu re if sympt oms indic ate. Not Available [facility] (Lab) [address] [facility], [place], [address], 04/01/2025 23:59:19 03/31/20 25 03/31/2025 urina lysis , dipst ick Leukocytes +1 Not Available [address], [place], [address], 03/31/2025 09:23:13 03/31/20 25 03/31/2025 urina lysis , dipst ick Nitrite normal Not Available [place] [address], [place], [address], 03/31/2025 09:23:13 03/31/20 25 03/31/2025 urina lysis , dipst ick Urobilinogen normal Not Available [facility] [address], [place], [address], 03/31/2025 09:23:13 03/31/20 25 03/31/2025 urina lysis , dipst ick Protein trace Not Available [place] [address], [place], [address], 03/31/2025 09:23:13 03/31/20 25 03/31/2025 urina lysis , dipst ick pH 5 Not Available [place] [address], [place], [address], 03/31/2025 09:23:13 03/31/20 25 03/31/2025 urina lysis , dipst ick Specific Nixon 1.020 Not Available [facility] [address], [place], [address], 03/31/2025 09:23:13 03/31/20 25 03/31/2025 urina lysis , dipst ick Ketone normal Not Available [place] [address], [place], [address], 03/31/2025 09:23:13 03/31/20 25 03/31/2025 urina lysis , dipst ick Bilirubin normal Not Available [facility] [address], [place], [address], 03/31/2025 09:23:13 03/31/20 25 03/31/2025 urina lysis , dipst ick Glucose normal Not Available [place] [address], [place], [address], 03/31/2025 09:23:13 03/31/20 25 03/31/2025 urina lysis , dipst ick Appearance normal Not Available [facility] [address], [place], [address], 03/31/2025 09:23:13 03/31/20 25 03/31/2025 urina lysis , dipst ick Color normal Not Available [place] [address], [place], [address], 03/31/2025 09:23:13 04/01/20 25 04/01/2025 WOMEN 'S HEALT H SWAB PLUS, DENIS bacterial vaginosis (bv), tma Negati ve negati ve Not Available [facility] (Lab) [address] [place], [address], 04/02/2025 14:08:45 04/01/20 25 04/01/2025 [facility], DENIS mekhi species, tma Negati ve negati ve Not Available [facility] (Lab) [address] [place], [address], 04/02/2025 14:08:45 04/01/20 25 04/01/2025 WOMEN 'S HEALT H SWAB PLUS, DENIS mekhi glabrata, tma Negati ve negati ve Not Available [facility] (Lab) [address] [place], [address], 04/02/2025 14:08:45 04/01/20 25 04/01/2025 [facility] SW[facility], DENIS trichomonas vaginalis, tma Negati ve negati ve Not Available [facility] (Lab) [address] [facility], [place], [address], 04/02/2025 14:08:45 04/01/20 25 04/01/2025 [facility] SW[facility]US, DENIS chlamydia trachomatis, PCR Negati ve negati ve Not Available [facility] (Lab) [address] [place], [address], 04/02/2025 14:08:45 04/01/20 25 04/01/2025 [facility] SWAB [facility]US, DENIS neisseria [...] ded in this panel . Not Available [facility] (Lab) [address] [place], [address], 04/02/2025 14:08:45 04/22/2004/22/2025 CULTU RE: URINE result report SEE RESULT S BELOW Test: Cultu re: Urine Speci men Sourc e: Urine Voide d Speci men Type: Urine Speci men Date: 2024 1314 Resul t Date: 2024 0322 Resul t Statu s: Final resul t Abnor mal: No Resul ting Lab: [facility] [address] [facility] [address] Tel: CULTU RE ----- ----- ----- --- No growt h in 1 day (dete ction level of 10,00 0 colon ies / ml.) Not Available [facility] (Lab) [address], [place], [address], 04/24/2025 04:28:01 04/22/20 25 04/22/2025 urina lysis , dipst ick Leukocytes + Not Available [address], [place], [address], 04/22/2025 10:01:51 04/22/20 25 04/22/2025 urina lysis , dipst ick Protein + Not Available [place] [address], [place], [address], 04/22/2025 10:01:51 04/22/20 25 04/22/2025 urina lysis , dipst ick pH 8 Not Available [place] [address], [place], [address], 04/22/2025 10:01:51 04/22/20 25 04/22/2025 urina lysis , dipst ick Blood + Not Available [place] [address], [place], [address], 04/22/2025 10:01:51 04/22/2004/22/2025 urina lysis , dipst ick Specific Nixon 1.010 Not Available [facility] [address], [place], [address], 04/22/2025 10:01:51 04/22/2004/22/2025 urina lysis , dipst ick Ketone + Not Available [place] [address], [place], [address], 04/22/2025 10:01:51 06/23/2006/23/2025 HEMAT OCRIT (HCT) HCT 35.6 % (based on docume nted legal sex) 34.0-4 5.0 Not Available [facility] (Lab) [address] [facility], [place], [address], 06/24/2025 11:45:32 06/23/20 25 06/23/2025 HEMOG LOBIN (HGB) HGB 11.1 g/dL (based on docume nted legal sex) 11.6-1 5.4 low Not Available [facility] (Lab) [address] [facility], [place], [address], 06/24/2025 11:45:32 06/23/20 25 06/23/2025 GTT - GESTA ROLAND L SCREE N, ACOG OB glucose, 1 hour screen 180 mg/dL 70-[address] [facility] (Lab) [address] [facility], [place], [address], 06/24/2025 11:45:33 06/23/20 25 06/23/2025 HIV 1/2 ANTIG EN/AN TIBOD Y, REFLE X CONFI RMATI ON HIV antigen/anti body Nonrea ctive nonrea ctive HIV-1 antig en and HIV-1 /HIV- 2 antib odies were not detec greg. No labor atory evide nce of HIV infec tion. Not Available [facility] (Lab) [address] [facility], [place], [address], 06/24/2025 11:45:33 06/23/20 25 06/23/2025 RPR SCREE N, REFLE X TITER /CONF IRMAT ION RPR qualitative Nonrea ctive nonrea ctive Not Available [facility] (Lab) [address] [facility], [place], [address], 06/24/2025 11:45:34 07/21/20 25 07/21/2025 CULTU RE: URINE result report SEE RESULT S BELOW Test: Cultu re: Urine Speci men Sourc e: Urine - Clean Catch Speci men Type: Urine Speci men Date: 2024 1024 Resul t Date: 2024 0252 Resul t Statu s: Final resul t Abnor mal: No Resul ting Lab: [facility] [address] [facility] [address] Tel: CULTU RE ----- ----- ----- --- No growt h in 1 day (dete ction level of 10,00 0 colon ies / ml.) Not Available [facility] (Lab) [address] [place], [address], 07/23/2025 03:57:01 07/21/2007/21/2025 urina lysis , dipst ick Leukocytes ++ Not Available [address], [place], [address], 07/21/2025 11:03:04 07/21/20 25 07/21/2025 urina lysis , dipst ick Nitrite neg Not Available [address], [place], [address], 07/21/2025 11:03:04 07/21/20 25 07/21/2025 urina lysis , dipst ick Urobilinogen neg Not Available [facility] [address], [place], [address], 07/21/2025 11:03:04 07/21/20 25 07/21/2025 urina lysis , dipst ick Protein + Not Available [place] [address], [place], [address], 07/21/2025 11:03:04 07/21/20 25 07/21/2025 urina lysis , dipst ick pH 5 Not Available [place] [address], [place], [address], 07/21/2025 11:03:04 07/21/20 25 07/21/2025 urina lysis , dipst ick Specific Nixon 1.030 Not Available [facility] [address], [place], [address], 07/21/2025 11:03:04 07/21/20 25 07/21/2025 urina lysis , dipst ick Ketone +++ Not Available [place] [address], [place], [address], 07/21/2025 11:03:04 07/21/20 25 07/21/2025 urina lysis , dipst ick Bilirubin neg Not Available [facility] [address], [place], [address], 07/21/2025 11:03:04 07/21/20 25 07/21/2025 urina lysis , dipst ick Glucose neg Not Available [place] [address], [place], [address], 07/21/2025 11:03:04 07/21/20 25 07/21/2025 urina lysis , dipst ick Appearance cloudy Not Available [address], [place], [address], 07/21/2025 11:03:04 07/21/20 25 07/21/2025 urina lysis , dipst ick Color dark Not Available [place], [place], [address], 07/21/2025 11:03:04 08/04/20 25 08/04/2025 CMP(C OMPRE HENSI VE METAB OLIC PANEL ) sodium 138 mmol/ L 133-14 6 Not Available [facility] (Lab) [address] [facility], [place], [address], 08/05/2025 13:39:18 08/04/20 25 08/04/2025 CMP(C OMPRE HENSI VE METAB OLIC PANEL ) potassium 4.0 mmol/ L 3.5-5. 1 Not Available [facility] (Lab) [address] [facility], [place], [address], 08/05/2025 13:39:18 08/04/20 25 08/04/2025 CMP(C OMPRE HENSI VE METAB OLIC PANEL ) chloride 105 mmol/ L 98-107 Not Available [facility] (Lab) [address] [facility], [place], [address], 08/05/2025 13:39:18 08/04/20 25 08/04/2025 CMP(C OMPRE HENSI VE METAB OLIC PANEL ) carbon dioxide 25 mmol/ L 21-31 Not Available [facility] (Lab) [address] [facility], [place], [address], 08/05/2025 13:39:18 08/04/20 25 08/04/2025 CMP(C OMPRE HENSI VE METAB OLIC PANEL ) anion gap 8 mmol/ L 4-13 Not Available [facility] (Lab) [address] [facility], [place], [address], 08/05/2025 13:39:18 08/04/20 25 08/04/2025 CMP(C OMPRE HENSI VE METAB OLIC PANEL ) blood urea nitrogen 10 mg/dL 7-[address] [facility] (Lab) [address] [facility], [place], [address], 08/05/2025 13:39:18 08/04/20 25 08/04/2025 CMP(C OMPRE HENSI VE METAB OLIC PANEL ) creatinine 0.41 mg/dL 0.60-1 .30 low Not Available [facility] (Lab) [address] [facility], [place], [address], 08/05/2025 13:39:18 08/04/20 25 08/04/2025 CMP(C OMPRE HENSI VE METAB OLIC PANEL ) egfrcr (CKD-epi 2020) >90 mL/mi n/1.7 3_m2 >=60 Not Available [facility] (Lab) [address] [facility], [place], [address], 08/05/2025 13:39:18 08/04/20 25 08/04/2025 CMP(C OMPRE HENSI VE METAB OLIC PANEL ) calcium 8.9 mg/dL 8.3-10 .5 Not Available [facility] (Lab) [address] [facility], [place], [address], 08/05/2025 13:39:18 08/04/20 25 08/04/2025 CMP(C OMPRE HENSI VE METAB OLIC PANEL ) glucose 116 mg/dL 70-100 high Not Available [facility] (Lab) [address] [facility], [place], [address], 08/05/2025 13:39:18 08/04/20 25 08/04/2025 CMP(C OMPRE HENSI VE METAB OLIC PANEL ) protein, total 6.1 g/dL 6.4-8. 3 low Not Available [facility] (Lab) [address] [facility], [place], [address], 08/05/2025 13:39:18 08/04/20 25 08/04/2025 CMP(C OMPRE HENSI VE METAB OLIC PANEL ) albumin 3.5 g/dL 3.5-5. 0 Not Available [facility] (Lab) [address] [facility], [place], [address], 08/05/2025 13:39:18 08/04/20 25 08/04/2025 CMP(C OMPRE HENSI VE METAB OLIC PANEL ) ALT 11 units /L 9-43 Not Available [facility] (Lab) [address] [facility], [place], [address], 08/05/2025 13:39:18 08/04/20 25 08/04/2025 CMP(C OMPRE HENSI VE METAB OLIC PANEL ) alkaline phosphatase 98 units /L 34-104 Not Available [facility] (Lab) [address] [facility], [place], [address], 08/05/2025 13:39:18 08/04/20 25 08/04/2025 CMP(C OMPRE HENSI VE METAB OLIC PANEL ) AST 15 units /L 13-39 Not Available [facility] (Lab) [address] [facility], [place], [address], 08/05/2025 13:39:18 08/04/20 25 08/04/2025 CMP(C OMPRE HENSI VE METAB OLIC PANEL ) bilirubin, total 0.3 mg/dL 0.2-1. 2 Not Available [facility] (Lab) [address] [facility], [place], [address], 08/05/2025 13:39:18 08/04/20 25 08/04/2025 BILE ACIDS , TOTAL bile acids, total 4 umol/ L 0-10 Test Perfo rmed by: [facility] [address] Not Available [facility] (Lab) [address] [facility], [place], [address], 08/05/2025 13:39:19 03/02/20 25 03/02/2025 US, obste tric, nucha l trans lucen cy No observ ation record ed. [email or web address] [place] [address], [place], [address], 03/02/2025 13:35:30 03/02/20 25 03/02/2025 US, obste tric, nucha l trans lucen cy No observ ation record ed. [email or web address] [address], [place], [address], 03/03/2025 14:08:39 03/08/20 25 03/08/2025 US, obste tric, 1st trime ster No observ ation record ed. [email or web address] [place] [address], [place], [address], 03/08/2025 12:22:22 03/08/20 25 03/08/2025 US, obste tric, 1st trime ster No observ ation record ed. [email or web address] [address], [place], [address], 03/10/2025 15:03:13 04/01/20 25 03/24/2025 [email or web address] r monit or No observ ation record ed. [address] [facility], [place], [address], 04/08/2025 12:36:45 04/01/20 25 03/22/2025 [email or web address] r monit or No observ ation record ed. [address] (Pulmonary) [address] [place] [address] [address] [facility], [place], [address], 04/06/2025 08:59:34 04/20/20 25 04/20/2025 US, obste tric, limit ed No observ ation record ed. [email or web address] [place] [address], [place], [address], 04/20/2025 17:39:30 04/20/20 25 04/20/2025 US, obste tric, follo w-up No observ ation record ed. [email or web address] [address], [place], [address], 04/23/2025 08:32:54 04/28/20 25 04/28/2025 US, obste tric, 2nd or 3rd trime ster No observ ation record ed. [email or web address] [place] [address], [place], [address], 04/28/2025 17:48:42 04/28/20 25 04/28/2025 US, obste tric, 2nd or 3rd trime ster No observ ation record ed. [email or web address] [address], [place], [address], 05/04/2025 22:16:11 05/07/20 25 05/07/2025 non-s tress test No observ ation record ed. [address], [place], [address], 05/28/2025 13:33:54 05/21/20 25 05/21/2025 CT, head + brain , w/o contr ast No observ ation record ed. [email or web address], [place], [address], 05/24/2025 13:48:57 05/28/20 25 05/28/2025 US, obste tric, follo w-up No observ [facility]ion record ed. [email or web address] [address], [place], [address], 05/28/2025 17:32:34 05/28/20 25 05/28/2025 US, obste tric, follo w-up No observ ation record ed. [email or web address] [address], [place], [address], 06/01/2025 15:13:13 08/10/16 2506/07/2025 US, obste tric, follo w-up No observ ation record ed. [facility] [address] [facility], [place], [address], 06/15/2025 10:53:46 07/07/20 25 07/07/2025 US, obste tric, follo w-up No observ ation record ed. [email or web address] [place] [address], [place], [address], 07/07/2025 13:18:01 07/07/2007/07/2025 US, obste tric, follo w-up No observ ation record ed. [email or web address] [address], [place], [address], 07/07/2025 11:29:37 08/04/20 25 08/04/2025 US, obste tric, follo w-up No observ ation record ed. [email or web address] [place] [address], [place], [address], 08/04/2025 15:08:50 08/04/2008/04/2025 US, obste tric, follo w-up No observ ation record ed. [email or web address] [address] [address], [place], [address], 08/06/2025 10:41:50 08/11/2008/11/2025 non-s tress test No observ ation record ed. [email or web address] [place] [address], [place], [address], 08/11/2025 17:37:52 08/11/20 non-s tress test No observ ation record ed. [email or web address] [place] [address], [place], [address], 08/11/2025 17:38:11 08/15/2008/15/2025 non-s tress test No observ ation record ed. [place] [address] [facility] [address], [place], [address], 08/21/2025 10:18:57 08/15/2008/15/2025 US, obste tric, bioph ysica l profi le No observ ation record ed. [place] [address] [facility] [address], [place], [address], 08/17/2025 10:50:53 08/18/2008/18/2025 US, obste tric, bioph ysica l profi le + non-s tress test No observ ation record ed. [email or web address] [place] [address], [place], [address], 08/18/2025 10:21:39 08/18/2008/18/2025 US, obste tric, bioph ysica l profi le + non-s tress test No observ ation record ed. [email or web address] [address], [place], [address], 08/18/2025 10:35:44 08/18/2008/18/2025 non-s tress test No observ ation record ed. [email or web address] [place] [address], [place], [address], 08/18/2025 17:34:03 08/18/20 non-s tress test No observ ation record ed. [email or web address] [place] [address], [place], [address], 08/18/2025 16:06:09 08/25/2008/25/2025 US, obste tric, bioph ysica l profi le + non-s tress test No observ ation record ed. [email or web address] [place] [address], [place], [address], 08/25/2025 18:52:06 08/25/2008/25/2025 US, obste tric, follo w-up No observ ation record ed. [email or web address] [address] [address], [place], [address], 08/25/2025 15:47:28 08/25/2008/25/2025 non-s tress test No observ ation record ed. [address], [place], [address], 08/25/2025 18:12:15 08/25/20 non-s tress test No observ ation record ed. [address], [place], [address], 08/25/2025 17:21:19 08/30/2008/30/2025 imagi ng/di agnos tic resul t No observ ation record ed. [address] [place] [address], [address], 08/31/2025 18:17:32 09/01/2009/01/2025 non-s tress test No observ ation record ed. [address] [facility], [place], [address], 09/13/2025 11:32:22 09/01/2009/01/2025 [place], obste tric No observ ation record ed. [address], [place], [address], 09/02/2025 15:56:01 09/01/20 25 09/01/2025 non-s tress test No observ ation record ed. [address], [place], [address], 09/02/2025 14:32:38 Result Notes None recorded. Problems Name Problem SNOMED Code Status Onset Date Resolution Date Notes Provider Name and Address Organization Details Recorded Time Hypereme sis 554517394 Completed phenerga n now prn Asia arias rachel [facility] 2 16:43:51 Anxiety in pregnanc y [id number] Completed will continue to monitor Asia [place] arias rachel [facility] 2 16:43:51 Past pregnanc y history of gestatio nal diabetes mellitus [id number] Completed Early 1 hr GTT @ 20wks 11/03 APPT Asia Baileyrafakandy[place]rona arias [facility] 2 16:43:51 Spinal muscular atrophy 4099193 Completed Carrier - Not in contact with FOB. Asia Luis hugo rachel [facility] 2 16:43:51 Anxiety 40043917 Completed prozac Karina ramos [facility] 4 11:00:46 Nausea 185981138 Completed d/c zofran pump 11/08 per pt request Karina ramos [facility] 4 11:00:46 Postpart um hemorrha ge [id number] Completed 2017 with d&c Karina ramos [facility] 4 11:00:46 Normal pregnanc y in multigra jessy [id number] 16169 Completed 201907/05/2021 Encounte r for supervis ion of other normal pregnanc y, 3rd trimeste r;Record ed Elsewher e: No Locat ion: [facility] S ource: EHR Well Logging Captain yvrose: N Practi ce ID: 0001 Gigi lable Time: 10:45:00 AM Karina ramos [facility] 1 10:15:27 Gestatio n period, 37 weeks 17786207 Completed 201907/05/2021 37 weeks gestatio n of pregnanc y;Record ed Elsewher e: No [facility] S ource: EHR Well Logging Captain yvrose: N Natalyati ce ID: 0001 Gigi lable Time: 09:00:00 AM Karina ramos [facility] 10:15:[address] Concept Completed 201907/05/2021 Matern care for abnlt fetl hrt rate or rhym, 3rd tri, unsp;Rec orded Elsewher e: No [facility] S ource: EHR Well Logging Captain yvrose: N Natalyati ce ID: 0001 Gigi lable Time: 08:45:00 AM Karina ramos, [facility] 10:15:29 Gestatio nal diabetes mellitus 83406627 Completed 201907/05/2021 Gestatio nal diabetes mellitus in pregnanc y, diet controll ed;Recor ded Elsewher e: No Locat ion: [facility] S ource: EHR Well Logging Captain yvrose: N Natalyati ce ID: 0001 Gigi lable Time: 11:45:00 AM Karina ramos, [facility] 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 10:15:13 Amenorrh ea 96270717 Completed 202007/10/2021 Tammi ramos [facility] 13:08:35 Pregnanc y 47637825 Completed 202003/29/2022 Karina Heike null, [facility] 4 11:00:49 Pregnanc y 49174943 Completed 202304/22/2024 Karina Burroughs null, [facility] 4 11:00:49 Headache 33678408 Active 2023 Karina Burroughs null, [facility] 5 16:19:28 Pregnanc y 65704585 Active 2023 Karina Heike null, [facility] 5 16:19:28 Uncompli cated moderate persiste nt asthma 437343975 Active 2024 albutero l prn Shawn Bradley MD [address], [place], [address], [facility] 5 13:08:36 Anxiety 89007523 Active 2024 sertrali ne started 03/02/25 changed to prozac 10 on Shawn Bradley MD [address], [place], [address], [facility] 5 17:05:48 Nausea and vomiting 43156251 Active 2024 Shawn Bradley MD [address], [place], [address], [facility] 5 13:20:27 Placenta circumva llata 3088553 Active 2024 32wk growth Ryann Castro null, [facility] 5 09:44:35 Frequent headache 163412909 Active 2024 transpor t to [facility] 05/21, discharg e 05/23 [facility] referral faxed 05/24 [facility] per KAJAL Pittman [facility] unable to see pt [...] 2-3 times a week. Ryann Matthew ramos [facility] 5 10:55:26 Abnormal placenta affectin g manageme nt of mother 32941581 Active 2024 [facility]CI serial growth us Ryann Castro rachel [facility] 10:46:25 Iron deficien cy anemia 20266907 Active 2024 SS MFM tx venofer 200mg x1 HGB 10.6 Ryann Matthew ramos [facility] 5 15:21:25 Gestatio nal diabetes mellitus 39823807 Active 2024 checking bs QID - ruled in GDM Referral faxed to [facility] 07/07 Ryann Matthew ramos [facility] 5 14:36:52 Notes:Order faxed to [facility] 08/10 for PICC line, and home health already caring for pt. Vladimir RN at [phone] Problem Notes None recorded. Procedures Surgical History Date Name Laterality Status Provider Name and Address Organization Details Recorded Time 025 SALPINGECTOMY, LAPAROSCOPIC (SURG) completed Not Available [facility] 09/06/2025 11:19:17 025 Date of Last Pap Smear completed Karina Burroughs [facility] 01/28/2025 11:19:42 024 Nexplanon Removal completed Shawn Bradley MD [address], [place], [address], [facility] 08/05/2024 15:09:58 024 Control Implant Insertion completed Anju Mcnamara CNM [address], [place], [address], [facility] 05/08/2024 17:59:34 024 cholecystectomy completed Karina Burroughs [facility] 03/31/2025 09:18:57 018 Dilation and Curettage completed Karina Burroughs [facility] 07/05/2021 10:17:50 Imaging Results None recorded. Procedure Notes None recorded. Medical Equipment None Reported. Allergies Allergen ID Allergen Name Allergen Category Reaction Reaction Severity Criticality Documentation Date Start Date Code Code System Note Provider Name and Address Organization Details Recorded Time 57698 terbutali ne medicatio n anaphylax is Not available Not available 01/27/20252021 85663 RxNorm Karina Burroughs [facility], [facility] 16:19:27 16246 amoxicill in medicatio n Not available Not available Not available 09/10/2025 723 RxNorm Not Available [employer] - External Data Service - prod 16:39:37 75548 terbinafi ne medicatio n anaphylax is Not available [facility] 09/10/20252024 66245 RxNorm Not Available [address] Data Service - prod 16:40:54 Medications Name [...] Prescrib ed Elsewher e: Yes Loca tion: [facility] odify By: [email or web address] Encounte r DateTime : [...] n (supplie d by office) insert lot [id number] Exp 01/2026 Not Available Not Available Not Available 28 mg iron-800 mcg tablet 07/05 completed Prescrib ed [facility] e: Yes Loca tion: [facility] odify By: prabhjot barrera DateTime : 01/14/20 10:45:00 AM Not Available Not Available Not Available lidocaine 5 % topical ointment APPLY OINTMENT EXTERNAL LY TO RIBS THREE TIMES DAILY NEEDED 01/14 completed Not Available Not Available Not Available 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 08/25/2025 15:41:08 Date Recorded Body height Body mass index (BMI) Body weight Systolic And Diastolic Provider Name and Address Organization Details Last Updated DateTime 08/25/2025 162.56 cm 31.6 kg/m2 72161 g 108/72 mm[Hg] Emma Donis [facility] 08/25/2025 17:18:37 Social History Question Answer Notes LastModified by Organizat ion Details LastModified Time Tobacco Smoking Status Former Smoker Karina ramos, [facility] 07/05/2021 09:06:21 If You Are , What Was Your Level Of Alcohol Consumption Prior To ? Occasional [email or web address] Information not available 03/31/2025 Are You Blind Or Do You Have Difficulty Seeing? No [email or web address] Information not available 07/05/2021 What Is Your Level Of Caffeine Consumption? Heavy [email or web address] Information not available 07/05/2021 In The 14 Days Before Symptom Onset, Have You Had Close Contact With A Laboratory-confir med COVID-19 While That Case Was Ill? No [email or web address] Information not available 07/05/2021 In The 14 Days Before Symptom Onset, Have You Had Close Contact With A Person Who Is Under Investigation For COVID-19 While That Person Was Ill? No Information not available 07/05/2021 Have You Been To An Area Known To Be High Risk For COVID-19? No [email or web address] Information not available 07/05/2021 Are You Deaf Or Do You Have Serious Difficulty Hearing? No [email or web address] Information not available 07/05/2021 What Type Of Diet Are You Following? REGULAR [email or web address] Information not available 07/05/2021 Which Illicit Or Recreational Drugs Have You Used? Marijuana Information not available 07/05/2021 Have You Ever Been Counseled For Unhealthy Alcohol Use? No Information not available 07/05/2021 Do You Use Your Seat Belt Or Car Seat Routinely? Yes [email or web address] Information not available 07/05/2021 Do You Have Smoke And Carbon Monoxide Detectors In Your Home? Yes [email or web address] Information not available 07/05/2021 Do You Use Sunscreen Routinely? Yes [email or web address] Information not available 07/05/2021 Has Tobacco Cessation Counseling Been Provided? No [email or web address] Information not available 07/05/2021 Have You Used IV Drugs? No [email or web address] Information not available 07/05/2021 Do You Have Difficulty Walking Or Climbing Stairs? No [email or web address] Information not available 12/06/2021 Sex: Unknown Functional Status Question Answer Note LastModified by Organizat ion Details LastModified Time Do you use any illicit or recreational drugs? Yes [email or web address] Information not available 07/05/2021 Do you or have you ever used any other forms of tobacco or nicotine? Yes [email or web address] Information not available 07/05/2021 What is your level of alcohol consumption? None [email or web address] Information not available 03/31/2025 Do you or have you ever used smokeless tobacco? Never used smokeless tobacco [email or web address] Information not available 07/05/2021 Are you able to walk independently without assistance or assistive devices? YESWOREST [email or web address] Information not available 07/05/2021 Are you able to care for yourself independently? Yes [email or web address] Information not available 12/06/2021 Do you have difficulty dressing, bathing, grooming, or toileting? No [email or web address] Information not available 12/06/2021 Do you or have you ever used e-cigarettes or vape? Current user of electronic cigarettes [email or web address] Information not available 07/05/2021 What is your exercise level? Occasional [email or web address] Information not available 07/05/2021 Mental Status Question Answer Note LastModified by Organization D etails LastModified Time Do you feel stressed (tense, restless, nervous, or anxious, or unable to sleep at night)? [id number] [email or web address] Information not available 07/05/2021 Family History Relationship Description Onset Age of this Age Resolved Age Notes LastModified by Organization Details LastModified Time Father No current problems or disability [email or web address] Not available 05/2021 09:06:31 Mother No current problems or disability [email or web address] Not available 05/2021 09:06:31 Medical History Condition [...] ICD10 Code Diagnosis IMO Codes Diagnosis Note [id number] Shawn Bradley MD [place] [address] [address] 08/04/2025 14:02:59 08/04/2025 15:06:33 Gestational diabetes mellitus 48378220 O24.410 O43.103 O43.113 Z3A.34 69144753 [id number] [facility] [address],[place] [address] 08/04/2025 14:21:57 08/04/2025 15:26:03 Gestation period, 34 weeks 28110141 Z3A.34 3488629 Pruritic d isorder of skin 4859139102 L29.9 65139 plan labs today, ursadiol BID [id number] Anju Mcnamara [facility] [address] [place] [address] 08/11/2025 14:51:38 08/11/2025 17:16:44 Gestational diabetes mellitus 84608978 O24.414 57382700 [id number] [place] [address] [place] [address] 08/11/2025 16:25:59 08/11/2025 17:46:32 Gestational diabetes mellitus 53705771 O24.414 77227503 [id number] Shawn Bradley MD [place] [address] [place] [address] 08/18/2025 09:40:51 08/18/2025 10:15:47 Gestational diabetes mellitus 40966288 O24.414 Z3A.36 21822509 [id number] [facility] [address] [place] [address] 08/18/2025 09:41:06 08/18/2025 11:24:04 Gestation period, 36 weeks 56196616 Z3A.36 5555616 cont pnv [id number] Anju Mcnamara [facility] [address] [place] [address] 08/18/2025 09:41:16 08/18/2025 16:17:31 Gestational diabetes mellitus class A2 75021628 O24.414 23427746 [id number] Shawn Bradley MD [place] [address] [place] [address] 08/25/2025 14:26:29 08/25/2025 15:14:02 Gestational diabetes mellitus 22725284 O24.414 07356753 [id number] Anju Mcnamara CNM [place] [address] [address] 08/25/2025 14:26:57 08/25/2025 15:53:52 Gestation period, 37 weeks 39383159 Z3A.37 2119491 continue vitamin [id number] Anju Mcnamara CNM [place] [address] [address] 08/25/2025 16:48:00 08/25/2025 17:20:42 Gestational diabetes mellitus 17013729 O24.419 [id number] Health Concerns Section Related Observation LastModified by Organization Detai ls LastModified Time None Recorded Concern Status LastModified by Organization Details LastModified Time None Recorded Payers Encounter Date Sequence Insurance Name Policy Number Policy Roberts Covered Member ID Roberts Member ID Guarantor Name 08/25/2025 1 [facility] (MEDICAID HMO) [id number] Yuni Mejia [id number] Yuni Mejia Notes Date Note Type Note Provider Name and Address Organization Details Recorded Time 08/25/2025 text/html Generic HPI TemplateReported by Patient Anju Mcnamara CNM [address], [place], [address], [facility] 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 Status 03/02/20 25 1 B Positive 164 OPEN Fetus Data First Name Last Name Admitted to NICU Weight (g) Sex Living Outcome Pediatric Complications Fetus ID Race Codes Race Delivery Type 40686 Problems Problem Notes SDH form completed 5GI consult Tachycardia Holter monitor 72 order- pt sent back on 03-27-25 Cardiology referral faxed per Dr Martínez office calling pt 04/21 to schedule consult scheduled 05/11 11:15AM Problem Name Start Date End Date Resolution Snomed Code Not e Uncomplicated moderate persistent asthma 03/02/2025 860869646 albuterol prn Abnormal placenta affecting management of mother 05/04/2025 67081663 [facility]CI serial grow th us Iron deficiency anemia [facility] [place] 200[facility] x1 HGB 10.6 Nausea and vomiting 03/02/2025 04541392 Anxiety 03/02/2025 17200598 sertralin e started 03/02/25 changed to prozac 10 on Gestational diabetes mellitus 07/08/2025 42714366 checking bs QID - ruled in GDM Referral faxed to [facility] 07/07 Frequent headache 05/03/2025 [id number] [place] to [facility] 05/21, discharge 05/23 [facility] referral fax[facility] 05/24 [facility] Neurology consult pending per KAJAL Pittman [facility] ST- Neuro [facility] unable to see pt due to insurance 05/[facility] 07/05/25 Level US & Consult (see [facility] consult zayas recommendations ) regimen prn Imitrex 50mg for acute migraine, vitamin B2 (Riboflavin) 400mg, Coenzyme q10 300mg and magnesium oxide 200 to 600mg daily. minimize use of Excedrin or Tylenol to no more than 2-3 times a week. 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/2025 6730239 32wk growth us Jun Calculation Initial Jun [...] Weight in lbs Pre/Post Dialysis Refused Weight 158.001243407885 BP Diastolic BP Location Tested BP Systolic [...] Weight in lbs Pre/Post Dialysis Refused Weight 158.230895431505 BP Diastolic BP Location Tested BP Systolic [...] Weight in lbs Pre/Post Dialysis Refused Weight 162.607556422632 BP Diastolic BP Location Tested BP Systolic [...] Type Weight in lbs Pre/Post Dialysis Refused 168.673267004086 BP Diastolic BP Location Tested BP Systolic [...] Type Weight in lbs Pre/Post Dialysis Refused 169.121688994402 BP Diastolic BP Location Tested BP Systolic [...] Weight in lbs Pre/Post Dialysis Refused Weight 175.096028676803 BP Diastolic BP Location Tested BP Systolic [...] Weight in lbs Pre/Post Dialysis Refused Weight 182.230939046725 BP Diastolic BP Location Tested BP Systolic [...] Weight in lbs Pre/Post Dialysis Refused Weight 181.312257855837 BP Diastolic BP Location Tested BP Systolic BP Type 73 L arm 131 sitting Fetus Heart Rate Present Fetus Movement A Yes Comments viral URI testied neg at urg ent care, nausea resolved, efw 68%, +FM plan education and precautions f/u 2 weeks diagnosed GDM, plan tag writer, gave list reviewed protein vs carb Flowsheet Date 07/21/2025 Gibson Score Blood Edema Fundus Height Fundus Units Glucose Ketones Leukocytes Nitrite Labor Signs Protein Cervic Dilation Cervic Effacement Cervic Station Type Weight in lbs Pre/Post Dialysis Refused Weight 181.046452531148 BP Diastolic BP Location Tested BP Systolic BP Type 78 L arm 127 sitting Fetus Heart Rate Present A 150 Fetus Movement A Yes Comments rpt urine culture +FM review ed blood sugars, meets with tag writer today, precautions and education f/u 2 weeks [...] Weight in lbs Pre/Post Dialysis Refused Weight 181.163409577881 BP Diastolic BP Location Tested BP Systolic [...] Weight in lbs Pre/Post Dialysis Refused Weight 183.772710950461 BP Diastolic BP Location Tested BP Systolic [...] Type Weight in lbs Pre/Post Dialysis Refused 184.365132571780 BP Diastolic BP Location Tested BP Systolic [...] Type Weight in lbs Pre/Post Dialysis Refused 184.163873819570 BP Diastolic BP Location Tested BP Systolic [...] Type Weight in lbs Pre/Post Dialysis Refused 184.990540918612 BP Diastolic BP Location Tested BP Systolic [...] Weight in lbs Pre/Post Dialysis Refused Weight 184.778235349088 BP Diastolic BP Location Tested BP Systolic [...]
--- OUTSIDE RECORDS SUMMARY | 2025-09-14 00:21 | XMS_ITS | Continuity of Care Document ---
Author Organization [facility], [facility] Address [address] [place] [address] [place] [address] Care Team Providers Care Vaccinator Name Role Phone SEAN CARLOS Primary Care Provider Assessment Encounter Date Assessment Date Assessment LastModified by Organization Details LastModified Time 08/25/2025 08/25/2025 Patient is _37__weeks . Discussed plan. Not available 08/25/2025 15:51:15 Plan of Treatment [...] Not Available [facility] [address], [place], [address], 03/06/2025 03:58:26 03/06/20 25 03/06/2025 [UNIT Y] ANEUP LOIDY NIPT sex chromosome aneuploidy NOT DETECT ED normal Not Available [facility] [address], [place], [address], 03/06/2025 03:58:26 03/06/20 25 03/06/2025 [UNIT Y] ANEUP LOIDY NIPT monosomy X LOW RISK <1 in 10,000 normal Not Available [facility] [address], [place], [address], 03/06/2025 03:58:26 03/06/20 25 03/06/2025 [UNIT Y] ANEUP LOIDY NIPT trisomy 13 LOW RISK <1 in 10,000 normal Not Available [facility] [address], [place], [address], 03/06/2025 03:58:26 03/06/20 25 03/06/2025 [UNIT Y] ANEUP LOIDY NIPT trisomy 18 LOW RISK <1 in 10,000 normal Not Available [facility] [address], [place], [address], 03/06/2025 03:58:26 03/06/20 25 03/06/2025 [UNIT Y] ANEUP LOIDY NIPT trisomy 21 LOW RISK <1 in 10,000 normal Not Available [facility] [address], [place], [address], 03/06/2025 03:58:26 03/06/20 25 03/06/2025 [UNIT Y] ANEUP LOIDY NIPT sex FEMALE normal Not Available [facility] [address], [place], [address], 03/06/2025 03:58:26 03/06/20 25 03/06/2025 [UNIT Y] ANEUP LOIDY NIPT gestation SINGLE TON normal Not Available [facility] [address], [place], [address], 03/06/2025 03:58:26 03/06/20 25 03/06/2025 [UNIT Y] ANEUP LOIDY NIPT for detailed report, see pdf See PDF normal Not Available [facility] [address], [place], [address], 03/06/2025 03:58:26 03/02/20 25 03/02/2025 CULTU RE: URINE result report SEE RESULT S BELOW Test: Cultu re: Urine Speci men Sourc e: Urine - Clean Catch Speci men Type: Urine Speci men Date: 025 1455 Resul t Date: 2138 Resul t Statu s: Final resul t Abnor mal: No Resul ting Lab: [facility] [address] [facility] [address] Tel: CULTU RE ----- ----- ----- --- No growt h in 1 day (dete ction level of 10,00 0 colon ies / ml.) Not Available [facility] (Lab) [address] [facility], [place], [address], 03/03/2025 22:42:27 03/12/2003/12/2025 CULTU RE: URINE result report SEE RESULT S BELOW Test: Cultu re: Urine Speci men Sourc e: Urine - Clean Catch Speci men Type: Urine Speci men Date: 2024 1600 Resul t Date: 2024 0610 Resul t Statu s: Final resul t Abnor mal: No Resul ting Lab: [facility] [address] [facility] [address] Tel: CULTU RE ----- ----- ----- --- No growt h in 1 day (dete ction level of 10,00 0 colon ies / ml.) Not Available [facility] (Lab) [address], [place], [address], 03/14/2025 07:15:03 03/12/2003/12/2025 urina lysis , dipst ick Leukocytes ++ Not Available [address], [place], [address], 03/12/2025 16:45:06 03/12/2003/12/2025 urina lysis , dipst ick Protein + Not Available [facility] [address], [place], [address], 03/12/2025 16:45:06 03/12/20 25 03/12/2025 urina lysis , dipst ick pH 5 Not Available [facility] [address], [place], [address], 03/12/2025 16:45:06 03/12/20 25 03/12/2025 urina lysis , dipst ick Blood trace Not Available [facility] [address], [place], [address], 03/12/2025 16:45:06 03/12/20 25 03/12/2025 urina lysis , dipst ick Specific Woodruff 1.015 Not Available [facility] [address], [place], [address], 03/12/2025 16:45:06 03/12/20 25 03/12/2025 urina lysis , dipst ick Ketone +++ Not Available [facility] [address], [place], [address], 03/12/2025 16:45:06 03/31/20 25 03/31/2025 TSH, REFLE X FREE T4 TSH 0.42 uIU/m L 0.30-5 .33 Not Available [facility] (Lab) [address], [place], [address], 04/01/2025 03:05:12 03/31/20 25 03/31/2025 CULTU RE: URINE result report SEE RESULT S BELOW Test: Cultu re: Urine Speci men Sourc e: Urine Voide d Speci men Type: Urine Speci men Date: 1710 Resul t Date: 2256 Resul t Statu s: Final resul t Abnor mal: No Resul ting Lab: [facility] [address] [facility] [address] Tel: CULTU RE ----- ----- ----- --- Cultu re resul t (>=3 organ isms prese nt) indic ates possi ble conta minat ion. Repea t cultu re if sympt oms indic ate. Not Available [facility] (Lab) [address], [place], [address], 04/01/2025 23:59:19 03/31/20 25 03/31/2025 urina lysis , dipst ick Leukocytes +1 Not Available [facility] [address], [place], [address], 03/31/2025 09:23:13 03/31/20 25 03/31/2025 urina lysis , dipst ick Nitrite normal Not Available [facility] [address], [place], [address], 03/31/2025 09:23:13 03/31/20 25 03/31/2025 urina lysis , dipst ick Urobilinogen normal Not Available [facility] david [address], [place], [address], 03/31/2025 09:23:13 03/31/20 25 03/31/2025 urina lysis , dipst ick Protein trace Not Available [facility] [address], [place], [address], 03/31/2025 09:23:13 03/31/20 25 03/31/2025 urina lysis , dipst ick pH 5 Not Available [facility] [address], [place], [address], 03/31/2025 09:23:13 03/31/20 25 03/31/2025 urina lysis , dipst ick Specific Woodruff 1.020 Not Available [facility] [address], [place], [address], 03/31/2025 09:23:13 03/31/20 25 03/31/2025 urina lysis , dipst ick Ketone normal Not Available [facility] [address], [place], [address], 03/31/2025 09:23:13 03/31/20 25 03/31/2025 urina lysis , dipst ick Bilirubin normal Not Available [facility] [address], [place], [address], 03/31/2025 09:23:13 03/31/20 25 03/31/2025 urina lysis , dipst ick Glucose normal Not Available [facility] [address], [place], [address], 03/31/2025 09:23:13 03/31/20 25 03/31/2025 urina lysis , dipst ick Appearance normal Not Available [facility] [address], [place], [address], 03/31/2025 09:23:13 03/31/20 25 03/31/2025 urina lysis , dipst ick Color normal Not Available [facility] [address], [place], [address], 03/31/2025 09:23:13 04/01/20 25 04/01/2025 [facility], DENIS bacterial vaginosis (bv), tma Negati ve negati ve Not Available [facility] (Lab) [address] [place], [address], 04/02/2025 14:08:45 04/01/20 25 04/01/2025 [facility], DENIS mekhi species, tma Negati ve negati ve Not Available [facility] (Lab) [address] [place], [address], 04/02/2025 14:08:45 04/01/20 25 04/01/2025 [facility] SWAB PLUS, DENIS mekhi glabrata, tma Negati ve negati ve Not Available [facility] (Lab) [address] [place], [address], 04/02/2025 14:08:45 04/01/20 25 04/01/2025 [facility] SWAB PLUS, DENIS trichomonas vaginalis, tma Negati ve negati ve Not Available [facility] (Lab) [address] [place], [address], 04/02/2025 14:08:45 04/01/20 25 04/01/2025 [facility] SWAB [facility], DENIS chlamydia trachomatis, PCR Negati ve negati ve Not Available [facility] (Lab) [address] [place], [address], 04/02/2025 14:08:45 04/01/20 25 04/01/2025 [facility] SWAB [facility], DENIS neisseria gonorrhoeae, PCR [...] rmed using the Trans cript ion [employer] gerg Ampli ficat ion metho d. Tests for Radha da glabr anaya, Trich omona s vagin sofía, Chlam ydia trach omati s, and Neiss eria gonor rhoea e are also inclu ded in this panel . Not Available [facility] (Lab) [address] , [place], [address], 04/02/2025 14:08:45 04/22/2004/22/2025 CULTU RE: URINE result report SEE RESULT S BELOW Test: Cultu re: Urine Speci men Sourc e: Urine Voide d Speci men Type: Urine Speci men Date: 2024 1314 Resul t Date: 2024 0322 Resul t Statu s: Final resul t Abnor mal: No Resul ting Lab: [facility] [address] [facility] [address] Tel: CULTU RE ----- ----- ----- --- No growt h in 1 day (dete ction level of 10,00 0 colon ies / ml.) Not Available [facility] (Lab) [address], [place], [address], 04/24/2025 04:28:01 04/22/20 25 04/22/2025 urina lysis , dipst ick Leukocytes + Not Available [address], [place], [address], 04/22/2025 10:01:51 04/22/20 25 04/22/2025 urina lysis , dipst ick Protein + Not Available [facility] [address], [place], [address], 04/22/2025 10:01:51 04/22/20 25 04/22/2025 urina lysis , dipst ick pH 8 Not Available [facility] [address], [place], [address], 04/22/2025 10:01:51 04/22/20 25 04/22/2025 urina lysis , dipst ick Blood + Not Available [facility] [address], [place], [address], 04/22/2025 10:01:51 04/22/20 25 04/22/2025 urina lysis , dipst ick Specific Woodruff 1.010 Not Available [facility] [address], [place], [address], 04/22/2025 10:01:51 04/22/20 25 04/22/2025 urina lysis , dipst ick Ketone + Not Available [facility] [address], [place], [address], 04/22/2025 10:01:51 06/23/20 25 06/23/2025 HEMAT OCRIT (HCT) HCT 35.6 % (based on docume nted legal sex) 34.0-4 5.0 Not Available [facility] (Lab) [address], [place], [address], 06/24/2025 11:45:32 06/23/20 25 06/23/2025 HEMOG LOBIN (HGB) HGB 11.1 g/dL (based on docume nted legal sex) 11.6-1 5.4 low Not Available [facility] (Lab) [address], [place], [address], 06/24/2025 11:45:32 06/23/20 25 06/23/2025 GTT - GESTA ROLAND L SCREE N, ACOG OB glucose, 1 hour screen 180 mg/dL 70-135 high Not Available [facility] (Lab) [address], [place], [address], 06/24/2025 11:45:33 06/23/20 25 06/23/2025 HIV 1/2 ANTIG EN/AN TIBOD Y, REFLE X CONFI RMATI ON HIV antigen/anti body Nonrea ctive nonrea ctive HIV-1 antig en and HIV-1 /HIV- 2 antib odies were not detec greg. No labor atory evide nce of HIV infec tion. Not Available [facility] (Lab) [address], [place], [address], 06/24/2025 11:45:33 06/23/20 25 06/23/2025 RPR SCREE N, REFLE X TITER /CONF IRMAT ION RPR qualitative Nonrea ctive nonrea ctive Not Available [facility] (Lab) [address], [place], [address], 06/24/2025 11:45:34 07/21/20 25 07/21/2025 CULTU RE: URINE result report SEE RESULT S BELOW Test: Cultu re: Urine Speci men Sourc e: Urine - Clean Catch Speci men Type: Urine Speci men Date: 2024 1024 Resul t Date: 2024 0252 Resul t Statu s: Final resul t Abnor mal: No Resul ting Lab: [facility] [address] [facility] [address] Tel: CULTU RE ----- ----- ----- --- No growt h in 1 day (dete ction level of 10,00 0 colon ies / ml.) Not Available [facility] (Lab) [address], [place], [address], 07/23/2025 03:57:01 07/21/2007/21/2025 urina lysis , dipst ick Leukocytes ++ Not Available [address], [place], [address], 07/21/2025 11:03:04 07/21/20 25 07/21/2025 urina lysis , dipst ick Nitrite neg Not Available [address], [place], [address], 07/21/2025 11:03:04 07/21/20 25 07/21/2025 urina lysis , dipst ick Urobilinogen neg Not Available [facility] [address], [place], [address], 07/21/2025 11:03:04 07/21/20 25 07/21/2025 urina lysis , dipst ick Protein + Not Available [facility] [address], [place], [address], 07/21/2025 11:03:04 07/21/20 25 07/21/2025 urina lysis , dipst ick pH 5 Not Available [facility] [address], [place], [address], 07/21/2025 11:03:04 07/21/20 25 07/21/2025 urina lysis , dipst ick Specific Woodruff 1.030 [facility] Available [facility] [address], [place], [address], 07/21/2025 11:03:04 07/21/20 25 07/21/2025 urina lysis , dipst ick Ketone +++ Not Available [facility] [address], [place], [address], 07/21/2025 11:03:04 07/21/20 25 07/21/2025 urina lysis , dipst ick Bilirubin neg Not Available [facility] [address], [place], [address], 07/21/2025 11:03:04 07/21/20 25 07/21/2025 urina lysis , dipst ick Glucose neg Not Available [facility] [address], [place], [address], 07/21/2025 11:03:04 07/21/20 25 07/21/2025 urina lysis , dipst ick Appearance cloudy Not Available [address], [place], [address], 07/21/2025 11:03:04 07/21/20 25 07/21/2025 urina lysis , dipst ick Color dark Not Available [facility] [address], [place], [address], 07/21/2025 11:03:04 08/04/20 25 08/04/2025 CMP(C OMPRE HENSI VE METAB OLIC PANEL ) sodium 138 mmol/ L 133-14 6 Not Available [facility] (Lab) [address], [place], [address], 08/05/2025 13:39:18 08/04/20 25 08/04/2025 CMP(C OMPRE HENSI VE METAB OLIC PANEL ) potassium 4.0 mmol/ L 3.5-5. 1 Not Available [facility] (Lab) [address], [place], [address], 08/05/2025 13:39:18 08/04/20 25 08/04/2025 CMP(C OMPRE HENSI VE METAB OLIC PANEL ) chloride 105 mmol/ L 98-107 Not Available [facility] (Lab) [address], [place], [address], 08/05/2025 13:39:18 08/04/20 25 08/04/2025 CMP(C OMPRE HENSI VE METAB OLIC PANEL ) carbon dioxide 25 mmol/ L 21-31 Not Available [facility] (Lab) [address], [place], [address], 08/05/2025 13:39:18 08/04/20 25 08/04/2025 CMP(C OMPRE HENSI VE METAB OLIC PANEL ) anion gap 8 mmol/ L 4-13 Not Available [facility] (Lab) [address], [place], [address], 08/05/2025 13:39:18 08/04/20 25 08/04/2025 CMP(C OMPRE HENSI VE METAB OLIC PANEL ) blood urea nitrogen 10 mg/dL 7-25 Not Available [facility] (Lab) [address], [place], [address], 08/05/2025 13:39:18 08/04/20 25 08/04/2025 CMP(C OMPRE HENSI VE METAB OLIC PANEL ) creatinine 0.41 mg/dL 0.60-1 .30 low Not Available [facility] (Lab) [address], [place], [address], 08/05/2025 13:39:18 08/04/20 25 08/04/2025 CMP(C OMPRE HENSI VE METAB OLIC PANEL ) egfrcr (CKD-epi 2020) >90 mL/mi n/1.7 3_m2 >=60 Not Available [facility] (Lab) [address], [place], [address], 08/05/2025 13:39:18 08/04/20 25 08/04/2025 CMP(C OMPRE HENSI VE METAB OLIC PANEL ) calcium 8.9 mg/dL 8.3-10 .5 Not Available [facility] (Lab) [address], [place], [address], 08/05/2025 13:39:18 08/04/20 25 08/04/2025 CMP(C OMPRE HENSI VE METAB OLIC PANEL ) glucose 116 mg/dL 70-100 high Not Available [facility] (Lab) [address], [place], [address], 08/05/2025 13:39:18 08/04/20 25 08/04/2025 CMP(C OMPRE HENSI VE METAB OLIC PANEL ) protein, total 6.1 g/dL 6.4-8. 3 low Not Available [facility] (Lab) [address], [place], [address], 08/05/2025 13:39:18 08/04/20 25 08/04/2025 CMP(C OMPRE HENSI VE METAB OLIC PANEL ) albumin 3.5 g/dL 3.5-5. 0 Not Available [facility] (Lab) [address], [place], [address], 08/05/2025 13:39:18 08/04/20 25 08/04/2025 CMP(C OMPRE HENSI VE METAB OLIC PANEL ) ALT 11 units /L 9-43 Not Available [facility] (Lab) [address], [place], [address], 08/05/2025 13:39:18 08/04/20 25 08/04/2025 CMP(C OMPRE HENSI VE METAB OLIC PANEL ) alkaline phosphatase 98 units /L 34-104 Not Available [facility] (Lab) [address], [place], [address], 08/05/2025 13:39:18 08/04/20 25 08/04/2025 CMP(C OMPRE HENSI VE METAB OLIC PANEL ) AST 15 units /L 13-39 Not Available [facility] (Lab) [address], [place], [address], 08/05/2025 13:39:18 08/04/20 25 08/04/2025 CMP(C OMPRE HENSI VE METAB OLIC PANEL ) bilirubin, total 0.3 mg/dL 0.2-1. 2 Not Available [facility] (Lab) [address], [place], [address], 08/05/2025 13:39:18 08/04/20 25 08/04/2025 BILE ACIDS , TOTAL bile acids, total 4 umol/ L 0-10 Test Perfo rmed by: Luke hern[facility]dez [facility] [address] [address] Not Available [facility] (Lab) [address], [place], [address], 08/05/2025 13:39:19 03/02/20 25 03/02/2025 US, obste tric, nucha l trans lucen cy No observ ation record ed. [email or web address] [facility] [address], [place], [address], 03/02/2025 13:35:30 03/02/20 25 03/02/2025 US, obste tric, nucha l trans lucen cy No observ ation record ed. [email or web address] [address] [address], , [address], 03/03/2025 14:08:39 03/08/20 25 03/08/2025 US, obste tric, 1st trime ster No observ ation record ed. [email or web address] [facility] [address], [place], [address], 03/08/2025 12:22:22 03/08/20 25 03/08/2025 US, obste tric, 1st trime ster No observ ation record ed. [email or web address] Esha [address], , [address], 03/10/2025 15:03:13 04/01/20 25 03/24/2025 qamar r monit or No observ ation record ed. [address], [address], 04/08/2025 12:36:45 04/01/20 25 03/22/2025 qamar r monit or No observ ation record ed. [address] (Pulmonary) [address] [place] [address] [place] [address], [address], 04/06/2025 08:59:34 04/20/20 25 04/20/2025 US, obstangela tric, limit ed No observ ation record ed. [email or web address] [facility] [address], [place], [address], 04/20/2025 17:39:30 04/20/20 25 04/20/2025 US, obste tric, follo w-up No observ ation record ed. [email or web address] [address] [place] [address] [address], , [address], 04/23/2025 08:32:54 04/28/20 25 04/28/2025 US, obste tric, 2nd or 3rd trime ster No observ ation record ed. [email or web address] [facility] [address], [place], [address], 04/28/2025 17:48:42 04/28/20 25 04/28/2025 US, obste tric, 2nd or 3rd trime ster No observ ation record ed. [email or web address] [address], , [address], 05/04/2025 22:16:11 05/07/20 25 05/07/2025 non-s tress test No observ ation record ed. [address], [place], [address], 05/28/2025 13:33:54 05/21/20 25 05/21/2025 CT, head + brain , w/o contr ast No observ ation record ed. [place] [id number] [facility] [address], [place], [address], 05/24/2025 13:48:57 05/28/20 25 05/28/2025 US, obste tric, follo w-up No observ ation record ed. [email or web address] [facility] [address], [place], [address], 05/28/2025 17:32:34 05/28/20 25 05/28/2025 US, obste tric, follo w-up No observ ation record ed. [email or web address] [address], , [address], 06/01/2025 15:13:13 06/08/20 25 06/07/2025 US, obste tric, follo w-up No observ ation record ed. [email or web address] [facility] [address], [place], [address], 06/15/2025 10:53:46 07/07/20 25 07/07/2025 US, obste tric, follo w-up No observ ation record ed. [email or web address] [facility] [address], [place], [address], 07/07/2025 13:18:01 07/07/20 25 07/07/2025 US, obste tric, follo w-up No observ ation record ed. [email or web address] [address], , [address], 07/07/2025 11:29:37 08/04/20 25 08/04/2025 US, obste tric, follo w-up No observ ation record ed. [email or web address] [facility] [address], [place], [address], 08/04/2025 15:08:50 08/04/20 25 08/04/2025 US, obste tric, follo w-up No observ ation record ed. [email or web address] [address], , [address], 08/06/2025 10:41:50 08/11/20 25 08/11/2025 non-s tress test No observ ation record ed. [facility] [address], [place], [address], 08/11/2025 17:37:52 08/11/20 non-s tress test No observ ation record ed. [email or web address] [facility] [address], [place], [address], 08/11/2025 17:38:11 08/15/20 25 08/15/2025 non-s tress test No observ ation record ed. [place] [id number], [place], [address], 08/21/2025 10:18:57 08/15/2008/15/2025 US, obste tric, bioph ysica l profi le No observ ation record ed. [address], [place], [address], 08/17/2025 10:50:53 08/18/2008/18/2025 US, obste tric, bioph ysica l profi le + non-s tress test No observ ation record ed. [email or web address] [facility] [address], [place], [address], 08/18/2025 10:21:39 08/18/2008/18/2025 US, obste tric, bioph ysica l profi le + non-s tress test No observ ation record ed. [email or web address] Esha [address], , [address], 08/18/2025 10:35:44 08/18/2008/18/2025 non-s tress test No observ ation record ed. [email or web address] [facility] [address], [place], [address], 08/18/2025 17:34:03 08/18/20 non-s tress test No observ ation record ed. [facility] [address], [place], [address], 08/18/2025 16:06:09 08/25/2008/25/2025 US, obste tric, bioph ysica l profi le + non-s tress test No observ ation record ed. [email or web address] [facility] [address], [place], [address], 08/25/2025 18:52:06 08/25/2008/25/2025 US, obste tric, follo w-up No observ ation record ed. joelle Esha [address], , [address], 08/25/2025 15:47:28 08/25/2008/25/2025 non-s tress test No observ ation record ed. [address], [place], [address], 08/25/2025 18:12:15 08/25/20 non-s tress test No observ ation record ed. [address], [place], [address], 08/25/2025 17:21:19 08/30/20 25 08/30/2025 imagi ng/di agnos tic resul t No observ ation record ed. [address] [facility], [place], [address], 08/31/2025 18:17:32 09/01/20 25 09/01/2025 non-s tress test No observ ation record ed. [address] [facility], [place], [address], 09/13/2025 11:32:22 09/01/2009/01/2025 US, obste tric No observ ation record ed. [address], [place], [address], 09/02/2025 15:56:01 09/01/20 25 09/01/2025 non-s tress test No observ ation record ed. [address], [place], [address], 09/02/2025 14:32:38 Result Notes None recorded. Problems Name Problem SNOMED Code Status Onset Date Resolution Date Notes Provider Name and Address Organization Details Recorded Time Hypereme sis 503927357 Completed phenerga n now prn Asia ramos [facility] 2 16:43:51 Anxiety in pregnanc y [id number] 9109 Completed will continue to monitor Asia arias rachel [facility] 2 16:43:51 Past pregnanc y history of gestatio nal diabetes mellitus [id number] Completed Early 1 hr GTT @ 20wks 11/03 APPT Asia arias [facility] 2 16:43:51 Spinal muscular atrophy [id number] Completed Carrier - Not in contact with FOB. Asia Baileyrafakandyganeshpetrona arias rachel [facility] 2 16:43:51 Anxiety [id number] Completed prozac Karina ramos [facility] 4 11:00:46 Nausea [id number] Completed d/c zofran pump 11/08 per pt request Karina ramos [facility] 4 11:00:46 Postpart um hemorrha ge [id number] Completed 2017 with d&c Karina ramos [facility] 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 1 10:15:27 Gestatio n period, 37 weeks [id number] Completed 201907/05/2021 37 weeks gestatio n of pregnanc y;Record ed Elsewher e: No Locat ion: [facility] S ource: [employer] yvrose: N Natalyati ce ID: 0001 Gigi lable Time: 09:00:00 AM Karina ramos, [facility] 10:15:[address] Concept Completed 201907/05/2021 Matern care for abnlt fetl hrt rate or rhym, 3rd tri, unsp;Rec orded Elsewher e: No Locat ion: [facility] S ource: [employer] yvrose: N Natalyati ce ID: 0001 Gigi lable Time: 08:45:00 AM Karina ramos, [facility] 10:15:29 Gestatio nal diabetes mellitus 90826281 Completed 201907/05/2021 Gestatio nal diabetes mellitus in pregnanc y, diet controll ed;Recor ded Elsewher e: No Locat ion: [facility] S ource: [employer] yvrose: N Natalyati ce ID: 0001 Gigi lable Time: 11:45:00 AM Karina ramos, [facility] 10:15:25 Gestatio n period, 38 weeks 57684116 Completed 201907/05/2021 38 weeks gestatio n of pregnanc y;Record ed Elsewher e: No Locat ion: [facility] S ource: [employer] yvrose: N Natalyati ce ID: 0001 Gigi lable Time: 11:30:00 AM Karina ramos [facility] 10:15:13 Amenorrh ea 75472229 Completed 202007/10/2021 Tammi ramos [facility] 13:08:35 Pregnanc y 24061136 Completed 202003/29/2022 Karina Burroughs null, [facility] 4 11:00:49 Pregnanc y 27035807 Completed 202304/22/2024 Karinasofia Burroughs null, [facility] 4 11:00:49 Headache 33991731 Active 2023 Karina Burroughs null, [facility] 5 16:19:28 Pregnanc y 64750391 Active 2023 Karina Heike null, [facility] 5 16:19:28 Uncompli cated moderate persiste nt asthma 987959575 Active 2024 albutero l prn Shawn Bradley MD [address], [place], [address], [facility] 5 13:08:36 Anxiety 00214836 Active 2024 sertrali ne started 03/02/25 changed to prozac 10 on Shawn Bradley MD [address], [place], [address], [facility] 5 17:05:48 Nausea and vomiting 76707709 Active 2024 Shawn rBadley MD [address], [place], [address], [facility] 5 13:20:27 Placenta circumva llata 3881773 Active 2024 32wk growth Ryann Castro null, [facility] 5 09:44:35 Frequent headache 005673115 Active 2024 transpor t to [facility] 05/21, discharg e 05/23 MFM referral faxed [...] 2-3 times a week. Ryann Castro rachel [facility] 5 10:55:26 Abnormal placenta affectin g manageme nt of mother 56595512 Active 2024 [facility]CI serial growth us Ryann Castro rachel [facility] 10:46:25 Iron deficien cy anemia 78253987 Active 2024 [facility] tx venofer 200mg x1 HGB 10.6 Ryann Matthew ramos [facility] 5 15:21:25 Gestatio nal diabetes mellitus 29754775 Active 2024 checking bs QID - ruled in GDM Referral faxed to [facility] 07/07 Ryann Castro rachel [facility] 5 14:36:52 Notes:Order faxed to [facility] 08/10 for PICC line, and home health already caring for pt. Vladimir RN at [phone] Problem Notes None recorded. Procedures Surgical History Date Name Laterality Status Provider Name and Address Organization Details Recorded Time 025 SALPINGECTOMY, LAPAROSCOPIC (SURG) completed Not Available [facility] 09/06/2025 11:19:17 025 Date of Last Pap Smear completed Karina Burroughs [facility] 01/28/2025 11:19:42 024 Nexplanon Removal completed Shawn Bradley MD [address], [place], [address], [place] [facility] 08/05/2024 15:09:58 024 Control Implant Insertion completed Anju Mcnamara CNM [address], [place], [address], [facility] 05/08/2024 17:59:34 024 cholecystectomy completed Karina Burroughs [facility] 03/31/2025 09:18:57 018 Dilation and Curettage completed Karina Burroughs [facility] 07/05/2021 10:17:50 Imaging Results None recorded. Procedure Notes None recorded. Medical Equipment None Reported. Allergies Allergen ID Allergen Name Allergen Category Reaction Reaction Severity Criticality Documentation Date Start Date Code Code System Note Provider Name and Address Organization Details Recorded Time 01075 terbutali ne medicatio n anaphylax is Not available Not available 01/27/20252021 44480 RxNorm Karina ramos, [facility] 16:19:27 03556 amoxicill in medicatio n Not available Not available Not available 09/10/2025 723 RxNorm Not Available [employer] - External Data Service - prod 16:39:37 38361 terbinafi ne medicatio n anaphylax is Not available [facility] 09/10/20252024 22165 RxNorm Not Available [employer] - prod 16:40:54 Medications Name [...] Deleon e: Yes Loca tion: Jaelyn castillo [facility] M odify By: [email or web address] Encounte r [...] n (supplie d by office) insert lot [id number] Exp 01/2026 Not Available Not Available Not Available 28 mg iron-800 mcg tablet 07/05 completed Prescrib ed Jeriher e: Yes Loca tion: [facility] odify By: prabhjot barrera DateTime : 01/14/20 10:45:00 AM Not Available Not Available Not Available lidocaine 5 % topical ointment APPLY OINTMENT EXTERNAL LY TO RIBS THREE TIMES DAILY NEEDED 01/14 completed Not Available Not Available Not Available [employer]-DH A 28 mg iron-1 mg-200 mg capsule [...] Address Organization Details Last Updated DateTime 08/25/2025 40594.56695 g 108/72 mm[Hg] Melyssa Santo [facility] 08/25/2025 15:41:08 Date Recorded Body height Body mass index (BMI) Body weight Systolic And Diastolic Provider Name and Address Organization Details Last Updated DateTime 08/25/2025 162.56 cm 31.6 kg/m2 52595 g 108/72 mm[Hg] Emma Dykes [facility] 08/25/2025 17:18:37 Social History Question Answer Notes LastModified by Organizat ion Details LastModified Time Tobacco Smoking Status Former Smoker Karina ramos, [facility] 07/05/2021 09:06:21 If You Are , What Was Your Level Of Alcohol Consumption Prior To ? Occasional [email or web address] Information not available 03/31/2025 Are You Blind Or Do You Have Difficulty Seeing? No [email or web address] Information not available 07/05/2021 What Is Your Level Of Caffeine Consumption? Heavy [email or web address] Information not available 07/05/2021 In The 14 Days Before Symptom Onset, Have You Had Close Contact With A Laboratory-confir med COVID-19 While That Case Was Ill? No [email or web address] Information not available 07/05/2021 In The 14 Days Before Symptom Onset, Have You Had Close Contact With A Person Who Is Under Investigation For COVID-19 While That Person Was Ill? No [email or web address] Information not available 07/05/2021 Have You Been To An Area Known To Be High Risk For COVID-19? No [email or web address] Information not available 07/05/2021 Are You Deaf Or Do You Have Serious Difficulty Hearing? No Information not available 07/05/2021 What Type Of Diet Are You Following? REGULAR [email or web address] Information not available 07/05/2021 Which Illicit Or Recreational Drugs Have You Used? Marijuana [email or web address] Information not available 07/05/2021 Have You Ever Been Counseled For Unhealthy Alcohol Use? No [email or web address] Information not available 07/05/2021 Do You Use Your Seat Belt Or Car Seat Routinely? Yes [email or web address] Information not available 07/05/2021 Do You Have Smoke And Carbon Monoxide Detectors In Your Home? Yes [email or web address] Information not available 07/05/2021 Do You Use Sunscreen Routinely? Yes [email or web address] Information not available 07/05/2021 Has Tobacco Cessation Counseling Been Provided? No [email or web address] Information not available 07/05/2021 Have You Used IV Drugs? No [email or web address] Information not available 07/05/2021 Do You Have Difficulty Walking Or Climbing Stairs? No [email or web address] Information not available 12/06/2021 Sex: Unknown Functional Status Question Answer Note LastModified by Organizat ion Details LastModified Time Do you use any illicit or recreational drugs? Yes [email or web address] Information not available 07/05/2021 Do you or have you ever used any other forms of tobacco or nicotine? Yes Information not available 07/05/2021 What is your level of alcohol consumption? None [email or web address] Information not available 03/31/2025 Do you or have you ever used smokeless tobacco? Never used smokeless tobacco [email or web address] Information not available 07/05/2021 Are you able to walk independently without assistance or assistive devices? YESWOREST Information not available 07/05/2021 Are you able to care for yourself independently? Yes [email or web address] Information not available 12/06/2021 Do you have difficulty dressing, bathing, grooming, or toileting? No [email or web address] Information not available 12/06/2021 Do you or have you ever used e-cigarettes or vape? Current user of electronic cigarettes [email or web address] Information not available 07/05/2021 What is your exercise level? Occasional Information not available 07/05/2021 Mental Status Question Answer Note LastModified by Organization D etails LastModified Time Do you feel stressed (tense, restless, nervous, or anxious, or unable to sleep at night)? [id number] [email or web address] Information not available 07/05/2021 Family History Relationship Description Onset Age of this Age Resolved Age Notes LastModified by Organization Details LastModified Time Father No current problems or disability Not available 05/2021 09:06:31 Mother No current problems or disability Not available 05/2021 09:06:31 Medical History Condition [...] ICD10 Code Diagnosis IMO Codes Diagnosis Note [id number] Shawn rBadley MD [facility] [address] [address] 08/04/2025 14:02:59 08/04/2025 15:06:33 Gestational diabetes mellitus 45505167 O24.410 O43.103 O43.113 Z3A.34 20296115 [id number] [facility] [address],[place] [address] 08/04/2025 14:21:57 08/04/2025 15:26:03 Gestation period, 34 weeks 54492957 Z3A.34 1229565 Pruritic d isorder of skin 1970890921 L29.9 38100 plan labs today, ursadiol BID [id number] Anju Mcnamara [facility] [address] [place] [address] 08/11/2025 14:51:38 08/11/2025 17:16:44 Gestational diabetes mellitus 25166874 O24.414 63887278 [id number] [facility] [address] [place] [address] 08/11/2025 16:25:59 08/11/2025 17:46:32 Gestational diabetes mellitus 81105457 O24.414 12322060 [id number] Shawn Bradley MD [facility] [address] [place] [address] 08/18/2025 09:40:51 08/18/2025 10:15:47 Gestational diabetes mellitus 68286018 O24.414 Z3A.36 96072406 [id number] [facility] [address] [place] [address] 08/18/2025 09:41:06 08/18/2025 11:24:04 Gestation period, 36 weeks 57137244 Z3A.36 3499387 cont pnv [id number] Anju Mcnamara [facility] [address] [place] [address] 08/18/2025 09:41:16 08/18/2025 16:17:31 Gestational diabetes mellitus class A2 64242295 O24.414 44119652 [id number] Shawn Bradley MD [facility] [address] [place] [address] 08/25/2025 14:26:29 08/25/2025 15:14:02 Gestational diabetes mellitus 15251806 O24.414 31448383 [id number] Anju Mcnamara CNM [facility] [address],[facility] [address] 08/25/2025 14:26:57 08/25/2025 15:53:52 Gestation period, 37 weeks 90589343 Z3A.37 3487126 continue vitamin [id number] Anju Mcnamara CNM [facility] [address] [address] 08/25/2025 16:48:00 08/25/2025 17:20:42 Gestational diabetes mellitus 07240529 O24.419 [id number] Health Concerns Section Related Observation LastModified by Organization Detai ls LastModified Time None Recorded Concern Status LastModified by Organization Details LastModified Time None Recorded Payers Encounter Date Sequence Insurance Name Policy Number Policy Roberts Covered Member ID Roberts Member ID Guarantor Name 08/25/2025 1 [facility] (MEDICAID HMO) [id number] Yuni Mejia [id number] Yuni Mejia Notes Date Note Type Note Provider Name and Address Organization Details Recorded Time 08/25/2025 text/html Generic HPI TemplateReported by Patient Anju Mcnamara CNM [address], [place], [address], [facility] 08/25/2025 15:51:24 OBGyn Episode Ob Episode Information Episode Created Date Number of Fetuses Patient Bloodtype Patient rh Status Prepregnancy Weight lbs Domestic Partner Domestic Partner Phone Father Name Oral And Maxillofacial Surgery Status 03/02/20 25 1 B Positive 164 OPEN Fetus Data First Name Last Name Admitted to NICU Weight (g) Sex Living Outcome Pediatric Complications Fetus ID Race Codes Race Delivery Type [id number] Problems Problem Notes SDH form completed 5GI consult Tachycardia Holter monitor 72 order- pt sent back on 03-27-25 Cardiology referral faxed per Dr Martínez office calling pt 04/21 to schedule consult scheduled 05/11 11:15AM Problem Name Start Date End Date Resolution Snomed Code Not e Uncomplicated moderate persistent asthma 03/02/2025 836697685 albuterol prn Abnormal placenta affecting management of mother 05/04/2025 92080653 [facility] serial grow th us Iron deficiency anemia 05/25/2025 83645402 [facility] tx [place] 200mg x1 HGB 10.6 Nausea and vomiting 03/02/2025 76545865 Anxiety 03/02/2025 74238494 sertralin e started 03/02/25 changed to prozac 10 on Gestational diabetes mellitus 07/08/2025 10929520 checking bs QID - ruled in GDM Referral faxed to [facility] 07/07 Frequent headache 05/03/2025 [id number] [place] to [facility] 05/21, discharge 05/23 MF referral faxed 05/24 [facility] Neurology consult pending per KAJAL Pittman [facility]- Neuro [facility] unable to see pt due to insurance [facility] 07/05/25 Level US & Consult (see MF consult zayas recommendations ) regimen prn Imitrex 50mg for acute migraine, vitamin B2 (Riboflavin) 400mg, Coenzyme q10 300mg and magnesium oxide 200 to 600mg daily. minimize use of Excedrin or Tylenol to no more than 2-3 times a week. 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 went to ed exam done cultures and rx sent, ?FM, await integrated specialist results rfilled zofran, precautions and education [...] Type Weight in lbs Pre/Post Dialysis Refused 168.785622359702 BP Diastolic BP Location Tested BP Systolic [...] Type Weight in lbs Pre/Post Dialysis Refused 169.381796193260 BP Diastolic BP Location Tested BP Systolic [...] Weight in lbs Pre/Post Dialysis Refused Weight 175.851154630641 BP Diastolic BP Location Tested BP Systolic [...] Weight in lbs Pre/Post Dialysis Refused Weight 182.647533533040 BP Diastolic BP Location Tested BP Systolic [...] Weight in lbs Pre/Post Dialysis Refused Weight 181.871698660008 BP Diastolic BP Location Tested BP Systolic BP Type 73 L arm 131 sitting Fetus Heart Rate Present Fetus Movement A Yes Comments viral URI testied neg at urg ent care, nausea resolved, efw 68%, +FM plan education and precautions f/u 2 weeks diagnosed GDM, plan grey goods tester, gave list reviewed protein vs carb Flowsheet Date 07/21/2025 Gibson Score Blood Edema Fundus Height Fundus Units Glucose Ketones Leukocytes Nitrite Labor Signs Protein Cervic Dilation Cervic Effacement Cervic Station Type Weight in lbs Pre/Post Dialysis Refused Weight 181.368397826034 BP Diastolic BP Location Tested BP Systolic BP Type 78 L arm 127 sitting Fetus Heart Rate Present A 150 Fetus Movement A Yes Comments rpt urine culture +FM review ed blood sugars, meets with grey goods tester today, precautions and education f/u 2 weeks [...] Weight in lbs Pre/Post Dialysis Refused Weight 181.271978438917 BP Diastolic BP Location Tested BP Systolic [...] Weight in lbs Pre/Post Dialysis Refused Weight 183.373234061121 BP Diastolic BP Location Tested BP Systolic [...] Type Weight in lbs Pre/Post Dialysis Refused 184.627424524100 BP Diastolic BP Location Tested BP Systolic [...] Type Weight in lbs Pre/Post Dialysis Refused 184.093272916968 BP Diastolic BP Location Tested BP Systolic [...] Type Weight in lbs Pre/Post Dialysis Refused 184.676409648716 BP Diastolic BP Location Tested BP Systolic [...] Weight in lbs Pre/Post Dialysis Refused Weight 184.172136874395 BP Diastolic BP Location Tested BP Systolic [...]
--- OUTSIDE RECORDS SUMMARY | 2025-09-14 00:21 | XMS_ITS | Continuity of Care Document ---
Author Organization [facility], [facility] Address [address] [place] [address] Care Team Providers Care Certified Appliance Service Technician Name Role Phone SEAN CARLOS Primary Care Provider Assessment Encounter Date Assessment Date Assessment LastModified by Organization Details LastModified Time 08/04/2025 08/04/2025 Patient is 34___weeks . Discussed plan. Not available 08/04/2025 15:22:07 Plan of Treatment Reminders Order Date Submit [...] Not Available [facility] [address], [place], [address], 03/06/2025 03:58:26 03/06/20 25 03/06/2025 [UNIT Y] ANEUP LOIDY NIPT sex chromosome aneuploidy NOT DETECT ED normal Not Available [facility] [address], [place], [address], 03/06/2025 03:58:26 03/06/20 25 03/06/2025 [UNIT Y] ANEUP LOIDY NIPT monosomy X LOW RISK <1 in 10,000 normal Not Available [facility] [address], [place], [address], 03/06/2025 03:58:26 03/06/20 25 03/06/2025 [UNIT Y] ANEUP LOIDY NIPT trisomy 13 LOW RISK <1 in 10,000 normal Not Available [facility] [address], [place], [address], 03/06/2025 03:58:26 03/06/20 25 03/06/2025 [UNIT Y] ANEUP LOIDY NIPT trisomy 18 LOW RISK <1 in 10,000 normal Not Available [facility] [address], [place], [address], 03/06/2025 03:58:26 03/06/20 25 03/06/2025 [UNIT Y] ANEUP LOIDY NIPT trisomy 21 LOW RISK <1 in 10,000 normal Not Available [facility] [address], [place], [address], 03/06/2025 03:58:26 03/06/20 25 03/06/2025 [UNIT Y] ANEUP LOIDY NIPT sex FEMALE normal Not Available [facility] [address], [place], [address], 03/06/2025 03:58:26 03/06/20 25 03/06/2025 [UNIT Y] ANEUP LOIDY NIPT gestation SINGLE TON normal Not Available [facility] [address], [place], [address], 03/06/2025 03:58:26 03/06/20 25 03/06/2025 [UNIT Y] ANEUP LOIDY NIPT for detailed report, see pdf See PDF normal Not Available [facility] [address], [place], [address], 03/06/2025 03:58:26 03/02/20 25 03/02/2025 CULTU RE: URINE result report SEE RESULT S BELOW Test: Cultu re: Urine Speci men Sourc e: Urine - Clean Catch Speci men Type: Urine Speci men Date: 025 1455 Resul t Date: 2138 Resul t Statu s: Final resul t Abnor mal: No Resul ting Lab: [facility] [address] [facility] [address] Tel: CULTU RE ----- ----- ----- --- No growt h in 1 day (dete ction level of 10,00 0 colon ies / ml.) Not Available [facility] (Lab) [address] [facility], [place], [address], 03/03/2025 22:42:27 03/12/2003/12/2025 CULTU RE: URINE result report SEE RESULT S BELOW Test: Cultu re: Urine Speci men Sourc e: Urine - Clean Catch Speci men Type: Urine Speci men Date: 2024 1600 Resul t Date: 2024 0610 Resul t Statu s: Final resul t Abnor mal: No Resul ting Lab: [facility] [address] [facility] [address] Tel: CULTU RE ----- ----- ----- --- No growt h in 1 day (dete ction level of 10,00 0 colon ies / ml.) Not Available [facility] (Lab) [address] [facility], [place], [address], 03/14/2025 07:15:03 03/12/2003/12/2025 urina lysis , dipst ick Leukocytes ++ Not Available [address], [place], [address], 03/12/2025 16:45:06 03/12/2003/12/2025 urina lysis , dipst ick Protein + Not Available [address], [place], [address], 03/12/2025 16:45:06 03/12/20 25 03/12/2025 urina lysis , dipst ick pH 5 Not Available [facility] [address], [place], [address], 03/12/2025 16:45:06 03/12/20 25 03/12/2025 urina lysis , dipst ick Blood trace Not Available [facility] [address], [place], [address], 03/12/2025 16:45:06 03/12/20 25 03/12/2025 urina lysis , dipst ick Specific Cobb 1.015 Not Available [facility] [address], [place], [address], 03/12/2025 16:45:06 03/12/20 25 03/12/2025 urina lysis , dipst ick Ketone +++ Not Available [address], [place], [address], 03/12/2025 16:45:06 03/31/20 25 03/31/2025 TSH, REFLE X FREE T4 TSH 0.42 uIU/m L 0.30-[address] [facility] (Lab) [address] [facility], [place], [address], 04/01/2025 03:05:12 03/31/20 25 03/31/2025 CULTU RE: URINE result report SEE RESULT S BELOW Test: Cultu re: Urine Speci men Sourc e: Urine Voide d Speci men Type: Urine Speci men Date: 1710 Resul t Date: 2256 Resul t Statu s: Final resul t Abnor mal: No Resul ting Lab: [facility] [address] [facility] [address] Tel: CULTU RE ----- ----- ----- --- Cultu re resul t (>=3 organ isms prese nt) indic ates possi ble conta minat ion. Repea t cultu re if sympt oms indic ate. Not Available [facility] (Lab) [address], [place], [address], 04/01/2025 23:59:19 03/31/20 25 03/31/2025 urina lysis , dipst ick Leukocytes +1 Not Available [facility] [address], [place], [address], 03/31/2025 09:23:13 03/31/20 25 03/31/2025 urina lysis , dipst ick Nitrite normal Not Available [address], [place], [address], 03/31/2025 09:23:13 03/31/20 25 03/31/2025 urina lysis , dipst ick Urobilinogen normal Not Available [facility] [address], [place], [address], 03/31/2025 09:23:13 03/31/20 25 03/31/2025 urina lysis , dipst ick Protein trace Not Available [address], [place], [address], 03/31/2025 09:23:13 03/31/20 25 03/31/2025 urina lysis , dipst ick pH 5 Not Available [address], [place], [address], 03/31/2025 09:23:13 03/31/20 25 03/31/2025 urina lysis , dipst ick Specific Cobb 1.020 Not Available [facility] [address], [place], [address], 03/31/2025 09:23:13 03/31/20 25 03/31/2025 urina lysis , dipst ick Ketone normal Not Available [address], [place], [address], 03/31/2025 09:23:13 03/31/20 25 03/31/2025 urina lysis , dipst ick Bilirubin normal Not Available [facility] [address], [place], [address], 03/31/2025 09:23:13 03/31/20 25 03/31/2025 urina lysis , dipst ick Glucose normal Not Available [address], [place], [address], 03/31/2025 09:23:13 03/31/20 25 03/31/2025 urina lysis , dipst ick Appearance normal Not Available [facility] [address], [place], [address], 03/31/2025 09:23:13 03/31/20 25 03/31/2025 urina lysis , dipst ick Color normal Not Available [address], [place], [address], 03/31/2025 09:23:13 04/01/20 25 04/01/[address] [facility] SWAB PLUS, DENIS bacterial vaginosis (bv), tma Negati ve negati ve Not Available [facility] (Lab) [address] [place], [address], 04/02/2025 14:08:45 04/01/20 25 04/01/[address] [facility] SWAB PLUS, DENIS mekhi species, tma Negati ve negati ve Not Available [facility] (Lab) [address] [place], [address], 04/02/2025 14:08:45 04/01/20 25 04/01/2025 [facility]OMEN 'S [facility] SWAB PLUS, DENIS mekhi glabrata, tma Negati ve negati ve Not Available [facility] (Lab) [address] [place], [address], 04/02/2025 14:08:45 04/01/20 25 04/01/2025 WOMEN 'S HEALT H SWAB PLUS, DENIS trichomonas vaginalis, tma Negati ve negati ve Not Available [facility] (Lab) [address] [place], [address], 04/02/2025 14:08:45 04/01/20 25 04/01/[address] [facility] SWAB PLUS, DENIS chlamydia trachomatis, PCR Negati ve negati ve Not Available [facility] (Lab) [address] [place], [address], 04/02/2025 14:08:45 04/01/20 25 04/01/[address] [facility] SWAB PLUS, DENIS neisseria gonorrhoeae, PCR [...] ded in this panel . Not Available [facility] (Lab) [address] , [place], [address], 04/02/2025 14:08:45 04/22/2004/22/2025 CULTU RE: URINE result report SEE RESULT S BELOW Test: Cultu re: Urine Speci men Sourc e: Urine Voide d Speci men Type: Urine Speci men Date: 2024 1314 Resul t Date: 2024 0322 Resul t Statu s: Final resul t Abnor mal: No Resul ting Lab: [facility] [address] [facility] [address] Tel: CULTU RE ----- ----- ----- --- No growt h in 1 day (dete ction level of 10,00 0 colon ies / ml.) Not Available [facility] (Lab) [address], [place], [address], 04/24/2025 04:28:01 04/22/20 25 04/22/2025 urina lysis , dipst ick Leukocytes + Not Available [address], [place], [address], 04/22/2025 10:01:51 04/22/20 25 04/22/2025 urina lysis , dipst ick Protein + Not Available [address], [place], [address], 04/22/2025 10:01:51 04/22/20 25 04/22/2025 urina lysis , dipst ick pH 8 Not Available [address], [place], [address], 04/22/2025 10:01:51 04/22/20 25 04/22/2025 urina lysis , dipst ick Blood + Not Available [address], [place], [address], 04/22/2025 10:01:51 04/22/20 25 04/22/2025 urina lysis , dipst ick Specific Cobb 1.010 Not Available [facility] [address], [place], [address], 04/22/2025 10:01:51 04/22/20 25 04/22/2025 urina lysis , dipst ick Ketone + Not Available [address], [place], [address], 04/22/2025 10:01:51 06/23/20 25 06/23/2025 HEMAT OCRIT (HCT) HCT 35.6 % (based on docume nted legal sex) 34.0-[address] [facility] (Lab) [address] [facility], [place], [address], 06/24/2025 11:45:32 06/23/20 25 06/23/2025 HEMOG LOBIN (HGB) HGB 11.1 g/dL (based on docume nted legal sex) 11.6-1 [address] [facility] (Lab) [address] [facility], [place], [address], 06/24/2025 11:45:32 06/23/20 25 06/23/2025 GTT - GESTA ROLAND L SCREE N, ACOG OB glucose, 1 hour screen 180 mg/dL 70-135 high Not Available [facility] (Lab) [address] [facility], [place], [address], 06/24/2025 11:45:33 06/23/20 25 06/23/2025 HIV 1/2 ANTIG EN/AN TIBOD Y, REFLE X CONFI RMATI ON HIV antigen/anti body Nonrea ctive nonrea ctive HIV-1 antig en and HIV-1 /HIV- 2 antib odies were not detec greg. No labor atory evide nce of HIV infec tion. Not Available [facility] (Lab) [address] [facility], [place], [address], 06/24/2025 11:45:33 06/23/20 25 06/23/2025 RPR SCREE N, REFLE X TITER /CONF IRMAT ION RPR qualitative Nonrea ctive nonrea ctive Not Available [facility] (Lab) [address] [facility], [place], [address], 06/24/2025 11:45:34 07/21/20 25 07/21/2025 CULTU RE: URINE result report SEE RESULT S BELOW Test: Cultu re: Urine Speci men Sourc e: Urine - Clean Catch Speci men Type: Urine Speci men Date: 2024 1024 Resul t Date: 2024 0252 Resul t Statu s: Final resul t Abnor mal: No Resul ting Lab: [facility] [address] [facility] [address] Tel: CULTU RE ----- ----- ----- --- No growt h in 1 day (dete ction level of 10,00 0 colon ies / ml.) Not Available [facility] (Lab) [address], [place], [address], 07/23/2025 03:57:01 07/21/2007/21/2025 urina lysis , dipst ick Leukocytes ++ Not Available [address], [place], [address], 07/21/2025 11:03:04 07/21/20 25 07/21/2025 urina lysis , dipst ick Nitrite neg Not Available [address], [place], [address], 07/21/2025 11:03:04 07/21/20 25 07/21/2025 urina lysis , dipst ick Urobilinogen neg Not Available [facility] her[address], [place], [address], 07/21/2025 11:03:04 07/21/20 25 07/21/2025 urina lysis , dipst ick Protein + Not Available [address], [place], [address], 07/21/2025 11:03:04 07/21/20 25 07/21/2025 urina lysis , dipst ick pH 5 Not Available [address], [place], [address], 07/21/2025 11:03:04 07/21/20 25 07/21/2025 urina lysis , dipst ick Specific Cobb 1.030 Not Available [facility] moya [address], [place], [address], 07/21/2025 11:03:04 07/21/20 25 07/21/2025 urina lysis , dipst ick Ketone +++ Not Available [address], [place], [address], 07/21/2025 11:03:04 07/21/20 25 07/21/2025 urina lysis , dipst ick Bilirubin neg Not Available [facility] [address], [place], [address], 07/21/2025 11:03:04 07/21/20 25 07/21/2025 urina lysis , dipst ick Glucose neg Not Available [address], [place], [address], 07/21/2025 11:03:04 07/21/20 25 07/21/2025 urina lysis , dipst ick Appearance cloudy Not Available [address], [place], [address], 07/21/2025 11:03:04 07/21/20 25 07/21/2025 urina lysis , dipst ick Color dark Not Available [address], [place], [address], 07/21/2025 11:03:04 08/04/20 25 08/04/2025 CMP(C OMPRE HENSI VE METAB OLIC PANEL ) sodium 138 mmol/ L 133-[address] [facility] (Lab) [address] [facility], [place], [address], 08/05/2025 13:39:18 08/04/20 25 08/04/2025 CMP(C OMPRE HENSI VE METAB OLIC PANEL ) potassium 4.0 mmol/ L 3.5-5. [address] [facility] (Lab) [address] [facility], [place], [address], 08/05/2025 13:39:18 08/04/20 25 08/04/2025 CMP(C OMPRE HENSI VE METAB OLIC PANEL ) chloride 105 mmol/ L 98-[address] [facility] (Lab) [address] [facility], [place], [address], 08/05/2025 13:39:18 08/04/20 25 08/04/2025 CMP(C OMPRE HENSI VE METAB OLIC PANEL ) carbon dioxide 25 mmol/ L 21-[address] [facility] (Lab) [address] [facility], [place], [address], 08/05/2025 13:39:18 08/04/20 25 08/04/2025 CMP(C OMPRE HENSI VE METAB OLIC PANEL ) anion gap 8 mmol/ L 4-[address] [facility] ([facility]) [address] [facility], [place], [address], 08/05/2025 13:39:18 08/04/20 25 08/04/2025 CMP(C OMPRE HENSI VE METAB OLIC PANEL ) blood urea nitrogen 10 mg/dL 7-25 Not Available [facility] ([facility]) [address] [facility], [place], [address], 08/05/2025 13:39:18 08/04/20 25 08/04/2025 CMP(C OMPRE HENSI VE METAB OLIC PANEL ) creatinine 0.41 mg/dL 0.60-1 .[address] [facility] ([facility]) [address] [facility], [place], [address], 08/05/2025 13:39:18 08/04/20 25 08/04/2025 CMP(C OMPRE HENSI VE METAB OLIC PANEL ) egfrcr (CKD-epi 2020) >90 mL/mi n/1.7 3_m2 >=[address] [facility] (Lab) [address] [facility], [place], [address], 08/05/2025 13:39:18 08/04/20 25 08/04/2025 CMP(C OMPRE HENSI VE METAB OLIC PANEL ) calcium 8.9 mg/dL 8.3-[address] [facility] (Lab) [address] [facility], [place], [address], 08/05/2025 13:39:18 08/04/20 25 08/04/2025 CMP(C OMPRE HENSI VE METAB OLIC PANEL ) glucose 116 mg/dL 70-[address] [facility] (Lab) [address] [facility], [place], [address], 08/05/2025 13:39:18 08/04/20 25 08/04/2025 CMP(C OMPRE HENSI VE METAB OLIC PANEL ) protein, total 6.1 g/dL 6.4-8. [address] [facility] ([facility]) [address] [facility], [place], [address], 08/05/2025 13:39:18 08/04/20 25 08/04/2025 CMP(C OMPRE HENSI VE METAB OLIC PANEL ) albumin 3.5 g/dL 3.5-5. [address] [facility] ([facility]) [address] [facility], [place], [address], 08/05/2025 13:39:18 08/04/20 25 08/04/2025 CMP(C OMPRE HENSI VE METAB OLIC PANEL ) ALT 11 units /L 9-[address] [facility] ([facility]) [address] [facility], [place], [address], 08/05/2025 13:39:18 08/04/20 25 08/04/2025 CMP(C OMPRE HENSI VE METAB OLIC PANEL ) alkaline phosphatase 98 units /L 34-[address] [facility] ([facility]) [address] [facility], [place], [address], 08/05/2025 13:39:18 08/04/20 25 08/04/2025 CMP(C OMPRE HENSI VE METAB OLIC PANEL ) AST 15 units /L 13-[address] [facility] (Lab) [address] [facility], [place], [address], 08/05/2025 13:39:18 08/04/20 25 08/04/2025 CMP(C OMPRE HENSI VE METAB OLIC PANEL ) bilirubin, total 0.3 mg/dL 0.2-1. [address] [facility] ([facility]) [address] [facility], [place], [address], 08/05/2025 13:39:18 08/04/20 25 08/04/2025 BILE ACIDS , TOTAL bile acids, total 4 umol/ L 0-10 Test Perfo rmed by: Luke hernández rn [facility] [address] [facility] ([facility]) [address] [facility], [place], [address], 08/05/2025 13:39:19 03/02/20 25 03/02/2025 US, obste tric, nucha l trans lucen cy No observ ation record ed. [email or web address] [address], [place], [address], 03/02/2025 13:35:30 03/02/20 25 03/02/2025 US, obste tric, nucha l trans lucen cy No observ ation record ed. [email or web address] [address], [place], [address], 03/03/2025 14:08:39 03/08/20 25 03/08/2025 US, obste tric, 1st trime ster No observ ation record ed. [email or web address] [address], [place], [address], 03/08/2025 12:22:22 03/08/20 25 03/08/2025 US, obste tric, 1st trime ster No observ ation record ed. [email or web address] Esha [address], [place], [address], 03/10/2025 15:03:13 04/01/20 25 03/24/2025 qamar r monit or No observ ation record ed. [address], [address], 04/08/2025 12:36:45 04/01/20 25 03/22/2025 qamar r monit or No observ ation record ed. [address] (Pulmonary) [address] [place] [address] [place] [address], [address], 04/06/2025 08:59:34 04/20/20 25 04/20/2025 US, obstangela tric, limit ed No observ ation record ed. [email or web address] [address], [place], [address], 04/20/2025 17:39:30 04/20/20 25 04/20/2025 US, obste tric, follo w-up No observ ation record ed. [email or web address] [address] [place] [address] [address], [place], [address], 04/23/2025 08:32:54 04/28/20 25 04/28/2025 US, obste tric, 2nd or 3rd trime ster No observ ation record ed. [email or web address] [address], [place], [address], 04/28/2025 17:48:42 04/28/20 25 04/28/2025 US, obste tric, 2nd or 3rd trime ster No observ ation record ed. [email or web address] [address], [place], [address], 05/04/2025 22:16:11 05/07/20 25 05/07/2025 non-s tress test No observ ation record ed. [address], [place], [address], 05/28/2025 13:33:54 05/21/20 25 05/21/2025 CT, head + brain , w/o contr ast No observ ation record ed. [place] [id number] [facility] [address], [place], [address], 05/24/2025 13:48:57 05/28/20 25 05/28/2025 US, obste tric, follo w-up No observ ation record ed. [email or web address] [address], [place], [address], 05/28/2025 17:32:34 05/28/20 25 05/28/2025 US, obste tric, follo w-up No observ ation record ed. [email or web address] [address], [place], [address], 06/01/2025 15:13:13 06/08/20 25 06/07/2025 US, obste tric, follo w-up No observ ation record ed. [email or web address] [facility] [address], [place], [address], 06/15/2025 10:53:46 07/07/20 25 07/07/2025 US, obste tric, follo w-up No observ ation record ed. [email or web address] [address], [place], [address], 07/07/2025 13:18:01 07/07/20 25 07/07/2025 US, obste tric, follo w-up No observ ation record ed. [email or web address] [address]sha [address], [place], [address], 07/07/2025 11:29:37 08/04/20 25 08/04/2025 US, obste tric, follo w-up No observ ation record ed. [email or web address] [address], [place], [address], 08/04/2025 15:08:50 08/04/20 25 08/04/2025 US, obste tric, follo w-up No observ ation record ed. [address], [place], [address], 08/06/2025 10:41:50 08/11/20 25 08/11/2025 non-s tress test No observ ation record ed. [email or web address] [address], [place], [address], 08/11/2025 17:37:52 08/11/20 non-s tress test No observ ation record ed. [email or web address] [address], [place], [address], 08/11/2025 17:38:11 08/15/20 25 08/15/2025 non-s tress test No observ ation record ed. [place] [id number], [place], [address], 08/21/2025 10:18:57 08/15/2008/15/2025 US, obste tric, bioph ysica l profi le No observ ation record ed. [address], [place], [address], 08/17/2025 10:50:53 08/18/2008/18/2025 US, obste tric, bioph ysica l profi le + non-s tress test No observ ation record ed. [email or web address] [address], [place], [address], 08/18/2025 10:21:39 08/18/2008/18/2025 US, obste tric, bioph ysica l profi le + non-s tress test No observ ation record ed. [email or web address] Esha [address], [place], [address], 08/18/2025 10:35:44 08/18/2008/18/2025 non-s tress test No observ ation record ed. [email or web address] [address], [place], [address], 08/18/2025 17:34:03 08/18/20 non-s tress test No observ ation record ed. [email or web address] [address], [place], [address], 08/18/2025 16:06:09 08/25/2008/25/2025 US, obste tric, bioph ysica l profi le + non-s tress test No observ ation record ed. [email or web address] [address], [place], [address], 08/25/2025 18:52:06 08/25/2008/25/2025 US, obste tric, follo w-up No observ ation record ed. joelle Esha [address], [place], [address], 08/25/2025 15:47:28 08/25/2008/25/2025 non-s tress test No observ ation record ed. [address], [place], [address], 08/25/2025 18:12:15 08/25/20 non-s tress test No observ ation record ed. [address], [place], [address], 08/25/2025 17:21:19 08/30/20 25 08/30/2025 imagi ng/di agnos tic resul t No observ ation record ed. [address] [facility], [place], [address], 08/31/2025 18:17:32 09/01/20 25 09/01/2025 non-s tress test No observ ation record ed. [address] [facility], [place], [address], 09/13/2025 11:32:22 09/01/2009/01/2025 [place], obste tric No observ ation record ed. [address], [place], [address], 09/02/2025 15:56:01 09/01/20 25 09/01/2025 non-s tress test No observ ation record ed. [address], [place], [address], 09/02/2025 14:32:38 Result Notes None recorded. Problems Name Problem SNOMED Code Status Onset Date Resolution Date Notes Provider Name and Address Organization Details Recorded Time Hypereme sis 530545034 Completed phenerga n now prn Asia ramos [facility] 2 16:43:51 Anxiety in pregnanc y [id number] Completed will continue to monitor Asia arias rachel [facility] 2 16:43:51 Past pregnanc y history of gestatio nal diabetes mellitus [id number] Completed Early 1 hr GTT @ 20wks 11/03 APPT Asia arias [facility] 2 16:43:51 Spinal muscular atrophy 5038724 Completed Carrier - Not in contact with FOB. Asia Baileyrafakandyganeshpetrona arias rachel [facility] 2 16:43:51 Anxiety 58574166 Completed prozac Karina ramos [facility] 4 11:00:46 Nausea [id number] Completed d/c zofran pump 11/08 per pt request Karina ramos [facility] 4 11:00:46 Postpart um hemorrha ge [id number] Completed 2017 with d&c Karina ramos [facility] 4 11:00:46 Normal pregnanc y in multigra jessy [id number] Completed 201907/05/2021 Encounte r for supervis ion of other normal pregnanc y, 3rd trimeste r;Record ed Elsewher e: No Locat ion: [facility] S ource: EHR Counterperson yvrose: N Practi ce ID: 0001 Gigi lable Time: 10:45:00 AM Karina ramos [facility] 1 10:15:27 Gestatio n period, 37 weeks [id number] Completed 201907/05/2021 37 weeks gestatio n of pregnanc y;Record ed Elsewher e: No Locat ion: [facility] S ource: EHR Counterperson yvrose: N Natalyati ce ID: 0001 Gigi lable Time: 09:00:00 AM Karina ramos, [facility] 10:15:[address] Concept Completed 201907/05/2021 Matern care for abnlt fetl hrt rate or rhym, 3rd tri, unsp;Rec orded Elsewher e: No Locat ion: [facility] S ource: EHR Counterperson yvrose: N Natalyati ce ID: 0001 Gigi lable Time: 08:45:00 AM Karina ramos, [facility] 10:15:29 Gestatio nal diabetes mellitus 29724816 Completed 201907/05/2021 Gestatio nal diabetes mellitus in pregnanc y, diet controll ed;Recor ded Elsewher e: No Locat ion: [facility] S ource: EHR Counterperson yvrose: N Natalyati ce ID: 0001 Gigi lable Time: 11:45:00 AM Karina ramos, [facility] 10:15:25 Gestatio n period, 38 weeks 59289777 Completed 201907/05/2021 38 weeks gestatio n of pregnanc y;Record ed Elsewher e: No Locat ion: [facility] S ource: EHR Counterperson yvrose: N Natalyati ce ID: 0001 Gigi lable Time: 11:30:00 AM Karina ramos [facility] 10:15:13 Amenorrh ea 85678132 Completed 202007/10/2021 Tammi ramos [facility] 13:08:35 Pregnanc y 06445261 Completed 202003/29/2022 Karina Burroughs null, [facility] 4 11:00:49 Pregnanc y 64196679 Completed 202304/22/2024 Karinasofia Burroughs null, [facility] 4 11:00:49 Headache 54840332 Active 2023 Karina Burroughs null, [facility] 5 16:19:28 Pregnanc y 16081652 Active 2023 Karina Heike null, [facility] 5 16:19:28 Uncompli cated moderate persiste nt asthma 124946190 Active 2024 albutero l prn Shawn Bradley MD [address], [place], [address], [facility] 5 13:08:36 Anxiety 53610096 Active 2024 sertrali ne started 03/02/25 changed to prozac 10 on Shawn Braldey MD [address], [place], [address], [facility] 5 17:05:48 Nausea and vomiting 19975192 Active 2024 Shawn Bardley MD [address], [place], [address], [facility] 5 13:20:27 Placenta circumva llata 6395676 Active 2024 32wk growth Ryann Castro null, [facility] 5 09:44:35 Frequent headache 710937031 Active 2024 [facility] 05/21, discharg e 05/23 MFM referral [...] 2-3 times a week. Ryann Castro rachel [facility] 5 10:55:26 Abnormal placenta affectin g manageme nt of mother 81840670 Active 2024 [facility] serial growth us Ryann Castro rachel [facility] 10:46:25 Iron deficien cy anemia 14673362 Active 2024 [facility] tx venofer 200mg x1 HGB 10.6 Ryann Matthew ramos [facility] 5 15:21:25 Gestatio nal diabetes mellitus 23238797 Active 2024 checking bs QID - ruled in GDM Referral faxed to [facility] 07/07 Ryann Castro rachel [facility] 5 14:36:52 Notes:Order faxed to [facility] 08/10 for PICC line, and home health already caring for pt. Vladimir RN at [phone] Problem Notes None recorded. Procedures Surgical History Date Name Laterality Status Provider Name and Address Organization Details Recorded Time 025 SALPINGECTOMY, LAPAROSCOPIC (SURG) completed Not Available [facility] 09/06/2025 11:19:17 025 Date of Last Pap Smear completed Karina Burroughs [facility] 01/28/2025 11:19:42 024 Nexplanon Removal completed Shawn Bradley MD [address], [place], [address], [place] [facility] 08/05/2024 15:09:58 024 Control Implant Insertion completed Anju Mcnamara CNM [address], [place], [address], [facility] 05/08/2024 17:59:34 024 cholecystectomy completed Karina Burroughs [facility] 03/31/2025 09:18:57 018 Dilation and Curettage completed Karina Burroughs [facility] 07/05/2021 10:17:50 Imaging Results None recorded. Procedure Notes None recorded. Medical Equipment None Reported. Allergies Allergen ID Allergen Name Allergen Category Reaction Reaction Severity Criticality Documentation Date Start Date Code Code System Note Provider Name and Address Organization Details Recorded Time 08540 terbutali ne medicatio n anaphylax is Not available Not available 01/27/20252021 33847 RxNorm Karina ramos, [facility] 16:19:27 94050 amoxicill in medicatio n Not available Not available Not available 09/10/2025 723 RxNorm Not Available [email or web address] - External Data Service - prod 16:39:37 00024 terbinafi ne medicatio n anaphylax is Not available [facility] 09/10/20252024 01026 RxNorm Not Available [employer] - prod 16:40:54 Medications Name [...] Deleon e: Yes Loca tion: [facility] M odify By: [email or web address] Encounte [...] n (supplie d by office) insert lot [id number] Exp 01/2026 Not Available Not Available Not Available 28 mg iron-800 mcg tablet 07/05 completed Prescrib ed Jeriher e: Yes Loca tion: [facility] odify By: prabhjot barrera DateTime : 01/14/20 10:45:00 AM Not Available Not Available Not Available lidocaine 5 % topical ointment APPLY OINTMENT EXTERNAL LY TO RIBS THREE TIMES DAILY NEEDED 01/14 completed Not Available Not Available Not Available 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 08/04/2025 15:09:59 Social History Question Answer Notes LastModified by Organizat ion Details LastModified Time Tobacco Smoking Status Former Smoker Karina Heike ramos, [facility] 07/05/2021 09:06:21 If You Are , What Was Your Level Of Alcohol Consumption Prior To ? Occasional Information not available 03/31/2025 Are You Blind Or Do You Have Difficulty Seeing? No Information not available 07/05/2021 What Is Your Level Of Caffeine Consumption? Heavy [email or web address] Information not available 07/05/2021 In The 14 Days Before Symptom Onset, Have You Had Close Contact With A Laboratory-confir med COVID-19 While That Case Was Ill? No [email or web address] Information not available 07/05/2021 In The 14 Days Before Symptom Onset, Have You Had Close Contact With A Person Who Is Under Investigation For COVID-19 While That Person Was Ill? No Information not available 07/05/2021 Have You Been To An Area Known To Be High Risk For COVID-19? No [email or web address] Information not available 07/05/2021 Are You Deaf Or Do You Have Serious Difficulty Hearing? No [email or web address] Information not available 07/05/2021 What Type Of Diet Are You Following? REGULAR [email or web address] Information not available 07/05/2021 Which Illicit Or Recreational Drugs Have You Used? Marijuana [email or web address] Information not available 07/05/2021 Have You Ever Been Counseled For Unhealthy Alcohol Use? No [email or web address] Information not available 07/05/2021 Do You Use Your Seat Belt Or Car Seat Routinely? Yes [email or web address] Information not available 07/05/2021 Do You Have Smoke And Carbon Monoxide Detectors In Your Home? Yes [email or web address] Information not available 07/05/2021 Do You Use Sunscreen Routinely? Yes [email or web address] Information not available 07/05/2021 Has Tobacco Cessation Counseling Been Provided? No [email or web address] Information not available 07/05/2021 Have You Used IV Drugs? No [email or web address] Information not available 07/05/2021 Do You Have Difficulty Walking Or Climbing Stairs? No [email or web address] Information not available 12/06/2021 Sex: Unknown Functional Status Question Answer Note LastModified by Organizat ion Details LastModified Time Do you use any illicit or recreational drugs? Yes [email or web address] Information not available 07/05/2021 Do you or have you ever used any other forms of tobacco or nicotine? Yes [email or web address] Information not available 07/05/2021 What is your level of alcohol consumption? None [email or web address] Information not available 03/31/2025 Do you or have you ever used smokeless tobacco? Never used smokeless tobacco [email or web address] Information not available 07/05/2021 Are you able to walk independently without assistance or assistive devices? YESWOREST [email or web address] Information not available 07/05/2021 Are you able to care for yourself independently? Yes [email or web address] Information not available 12/06/2021 Do you have difficulty dressing, bathing, grooming, or toileting? No [email or web address] Information not available 12/06/2021 Do you or have you ever used e-cigarettes or vape? Current user of electronic cigarettes [email or web address] Information not available 07/05/2021 What is your exercise level? Occasional [email or web address] Information not available 07/05/2021 Mental Status Question Answer Note LastModified by Organization D etails LastModified Time Do you feel stressed (tense, restless, nervous, or anxious, or unable to sleep at night)? 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 Z3A.30 2054838 [id number] Anju Mcnamara CNM [facility] [address] [address] 07/07/2025 10:14:33 07/07/2025 11:38:54 Gestation period, 30 weeks 30205376 Z3A.30 2399277 cont pnv Nausea 019640958 R11.0 53252 Gestationa l diabetes mellitus 74190587 O24.419 10759876 [id number] Anju Mcnamara CNM [facility] [address],[place] [address] 07/21/2025 09:28:54 07/21/2025 12:36:06 Pain in pelvis 78977839 R10.2 659578 Gestation period, 32 weeks 4003553 Z3A.32 5460018 [id number] Shawn Bradley MD [facility] [address],[place] [address] 08/04/2025 14:02:59 08/04/2025 15:06:33 Gestational diabetes mellitus 66739453 O24.410 O43.103 O43.113 Z3A.34 77765437 [id number] Anju Mcnamara CNM [facility] [address],[place] [address] 08/04/2025 14:21:57 08/04/2025 15:26:03 Gestation period, 34 weeks 52645669 Z3A.34 5569921 Pruritic d isorder of skin 5908417353 L29.9 17047 plan labs today, ursadiol BID Health Concerns Section Related Observation LastModified by Organization Detai ls LastModified Time None Recorded Concern Status LastModified by Organization Details LastModified Time None Recorded Payers Encounter Date Sequence Insurance Name Policy Number Policy Roberts Covered Member ID Roberts Member ID Guarantor Name 08/04/2025 1 [facility] (MEDICAID HMO) [id number] Yuni Mejia [id number] Yuni Mejia Notes Date Note Type Note Provider Name and Address Organization Details Recorded Time 08/04/2025 text/html Generic HPI TemplateReported by Patient Anju Mcnamara CNM [address], [place], [address], [facility] 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 Status 03/02/20 25 1 B Positive 164 OPEN Fetus Data First Name Last Name Admitted to NICU Weight (g) Sex Living Outcome Pediatric Complications Fetus ID Race Codes Race Delivery Type [id number] Problems Problem Notes SDH form completed 5GI consult Tachycardia Holter monitor 72 order- pt sent back on 03-27-25 Cardiology referral faxed per Dr Martínez office calling pt 04/21 to schedule consult scheduled 05/11 11:15AM Problem Name Start Date End Date Resolution Snomed Code Not e Uncomplicated moderate persistent asthma 03/02/2025 788043831 albuterol prn Abnormal placenta affecting management of mother 05/04/2025 56171108 [facility] serial grow th us Iron deficiency anemia 05/25/2025 [id number] [facility] tx [place] 200mg x1 HGB 10.6 Nausea and vomiting 03/02/2025 22105332 Anxiety 03/02/2025 90997669 sertralin e started 03/02/25 changed to prozac 10 on Gestational diabetes mellitus 07/08/2025 02474975 checking bs QID - ruled in GDM Referral faxed to [facility] 07/07 Frequent headache 05/03/2025 [id number] [place] [facility] 05/21, discharge 05/23 [facility] referral faxed 05/24 [facility] Neurology consult pending per KAJAL Pittman [facility]- Neuro [facility] unable to see pt due to insurance 05/25[facility] 07/05/25 Level US & Consult (see [facility] consult zayas recommendations ) regimen prn Imitrex 50mg for acute migraine, vitamin B2 (Riboflavin) 400mg, Coenzyme q10 300mg and magnesium oxide 200 to 600mg daily. minimize use of Excedrin or Tylenol to no more than 2-3 times a week. 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 went to ed exam done cultures and rx sent, ?FM, await front desk monitor results rfilled zofran, precautions and education [...] Type Weight in lbs Pre/Post Dialysis Refused 168.622899132411 BP Diastolic BP Location Tested BP Systolic [...] Type Weight in lbs Pre/Post Dialysis Refused 169.576862821899 BP Diastolic BP Location Tested BP Systolic [...] Weight in lbs Pre/Post Dialysis Refused Weight 175.818222058752 BP Diastolic BP Location Tested BP Systolic [...] Weight in lbs Pre/Post Dialysis Refused Weight 182.283012395113 BP Diastolic BP Location Tested BP Systolic [...] Weight in lbs Pre/Post Dialysis Refused Weight 181.242339670072 BP Diastolic BP Location Tested BP Systolic BP Type 73 L arm 131 sitting Fetus Heart Rate Present Fetus Movement A Yes Comments viral URI testied neg at urg ent care, nausea resolved, efw 68%, +FM plan education and precautions f/u 2 weeks diagnosed GDM, plan order selector, gave list reviewed protein vs carb Flowsheet Date 07/21/2025 Gibson Score Blood Edema Fundus Height Fundus Units Glucose Ketones Leukocytes Nitrite Labor Signs Protein Cervic Dilation Cervic Effacement Cervic Station Type Weight in lbs Pre/Post Dialysis Refused Weight 181.269172785282 BP Diastolic BP Location Tested BP Systolic BP Type 78 L arm 127 sitting Fetus Heart Rate Present A 150 Fetus Movement A Yes Comments rpt urine culture +FM review ed blood sugars, meets with order selector today, precautions and education f/u 2 weeks [...] Weight in lbs Pre/Post Dialysis Refused Weight 181.988890606608 BP Diastolic BP Location Tested BP Systolic [...] Weight in lbs Pre/Post Dialysis Refused Weight 183.195642240633 BP Diastolic BP Location Tested BP Systolic [...] Type Weight in lbs Pre/Post Dialysis Refused 184.785311343592 BP Diastolic BP Location Tested BP Systolic [...] Type Weight in lbs Pre/Post Dialysis Refused 184.982161005372 BP Diastolic BP Location Tested BP Systolic [...] Type Weight in lbs Pre/Post Dialysis Refused 184.983043315213 BP Diastolic BP Location Tested BP Systolic [...] Weight in lbs Pre/Post Dialysis Refused Weight 184.241205947952 BP Diastolic BP Location Tested BP Systolic [...]
--- OUTSIDE RECORDS SUMMARY | 2025-09-14 00:22 | XMS_ITS | Continuity of Care Document ---
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 Plan of Treatment Reminders Order Date Submit Date Provider Last Modified By Organization Details Last Modified Time Details Appointments None record ed. Lab None record ed. Referral None record ed. Procedures None record ed. Surgeries None record ed. Imaging non-st ress test 025 08/18/20 25 [email or web address], [place], [address], 16:17:31 Medication Orders None record ed. Patient TargetsNo targets recorded. Patient InstructionsNo instructions recorded. Reason for Referral None Reported. 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 normal Not Available [facility] [address], [place], [address], 03/06/2025 03:58:26 03/06/20 25 03/06/2025 [UNIT Y] ANEUP LOIDY NIPT monosomy X LOW RISK <1 in 10,000 normal Not Available [facility] [address], [place], [address], 03/06/2025 03:58:26 03/06/20 25 03/06/2025 [UNIT Y] ANEUP LOIDY NIPT trisomy 13 LOW RISK <1 in 10,000 normal Not Available [facility] [address], [place], [address], 03/06/2025 03:58:26 03/06/20 25 03/06/2025 [UNIT Y] ANEUP LOIDY NIPT trisomy 18 LOW RISK <1 in 10,000 normal Not Available [facility] [address], [place], [address], 03/06/2025 03:58:26 03/06/20 25 03/06/2025 [UNIT Y] ANEUP LOIDY NIPT trisomy 21 LOW RISK <1 in 10,000 normal Not Available [facility] [address], [place], [address], 03/06/2025 03:58:26 03/06/20 25 03/06/2025 [UNIT Y] ANEUP LOIDY NIPT sex FEMALE normal Not Available [facility] [address], [place], [address], 03/06/2025 03:58:26 03/06/20 25 03/06/2025 [UNIT Y] ANEUP LOIDY NIPT gestation SINGLE TON normal Not Available [facility] [address], [place], [address], 03/06/2025 03:58:26 03/06/20 25 03/06/2025 [UNIT Y] ANEUP LOIDY NIPT for detailed report, see pdf See PDF normal Not Available [facility] [address], [place], [address], 03/06/2025 03:58:26 03/02/20 25 03/02/2025 CULTU RE: URINE result report SEE RESULT S BELOW Test: Cultu re: Urine Speci men Sourc e: Urine - Clean Catch Speci men Type: Urine Speci men Date: 025 1455 Resul t Date: 025 2138 Resul t Statu s: Final resul t Abnor mal: No Resul ting Lab: [facility] [address] [facility] [address] Tel: CULTU RE ----- ----- ----- --- No growt h in 1 day (dete ction level of 10,00 0 colon ies / ml.) Not Available [facility] (Lab) [address] [facility], [place], [address], 03/03/2025 22:42:27 03/12/2003/12/2025 CULTU RE: URINE result report SEE RESULT S BELOW Test: Cultu re: Urine Speci men Sourc e: Urine - Clean Catch Speci men Type: Urine Speci men Date: 2024 1600 Resul t Date: 2024 0610 Resul t Statu s: Final resul t Abnor mal: No Resul ting Lab: [facility] [address] [facility] [address] Tel: CULTU RE ----- ----- ----- --- No growt h in 1 day (dete ction level of 10,00 0 colon ies / ml.) Not Available [facility] (Lab) [address] [facility], [place], [address], 03/14/2025 07:15:03 03/12/2003/12/2025 urina lysis , dipst ick Leukocytes ++ Not Available [address], [place], [address], 03/12/2025 16:45:06 03/12/2003/12/2025 urina lysis , dipst ick Protein + Not Available [address], [place], [address], 03/12/2025 16:45:06 03/12/20 25 03/12/2025 urina lysis , dipst ick pH 5 Not Available [address], [place], [address], 03/12/2025 16:45:06 03/12/20 25 03/12/2025 urina lysis , dipst ick Blood trace Not Available [address], [place], [address], 03/12/2025 16:45:06 03/12/20 25 03/12/2025 urina lysis , dipst ick Specific Tibbie 1.015 Not Available [facility] [address], [place], [address], 03/12/2025 16:45:06 03/12/20 25 03/12/2025 urina lysis , dipst ick Ketone +++ Not Available [address], [place], [address], 03/12/2025 16:45:06 03/31/20 25 03/31/2025 TSH, REFLE X FREE T4 TSH 0.42 uIU/m L 0.30-5 .33 Not Available [facility] (Lab) [address], [place], [address], 04/01/2025 03:05:12 03/31/20 25 03/31/2025 CULTU RE: URINE result report SEE RESULT S BELOW Test: Cultu re: Urine Speci men Sourc e: Urine Voide d Speci men Type: Urine Speci men Date: 1710 Resul t Date: 6 Resul t Statu s: Final resul t Abnor mal: No Resul ting Lab: [facility] [address] [facility] [address] Tel: CULTU RE ----- ----- ----- --- Cultu re resul t (>=3 organ isms prese nt) indic ates possi ble conta minat ion. Repea t cultu re if sympt oms indic ate. Not Available [facility] (Lab) [address] [facility], [place], [address], 04/01/2025 23:59:19 03/31/20 25 03/31/2025 urina lysis , dipst ick Leukocytes +1 Not Available [address], [place], [address], 03/31/2025 09:23:13 03/31/20 25 03/31/2025 urina lysis , dipst ick Nitrite normal Not Available [address], [place], [address], 03/31/2025 09:23:13 03/31/20 25 03/31/2025 urina lysis , dipst ick Urobilinogen normal Not Available [facility] [address], [place], [address], 03/31/2025 09:23:13 03/31/20 25 03/31/2025 urina lysis , dipst ick Protein trace Not Available [address], [place], [address], 03/31/2025 09:23:13 03/31/20 25 03/31/2025 urina lysis , dipst ick pH 5 Not Available [address], [place], [address], 03/31/2025 09:23:13 03/31/20 25 03/31/2025 urina lysis , dipst ick Specific Tibbie 1.020 Not Available [facility] [address], [place], [address], 03/31/2025 09:23:13 03/31/20 25 03/31/2025 urina lysis , dipst ick Ketone normal Not Available [address], [place], [address], 03/31/2025 09:23:13 03/31/20 25 03/31/2025 urina lysis , dipst ick Bilirubin normal [facility] [address], [place], [address], 03/31/2025 09:23:13 03/31/20 25 03/31/2025 urina lysis , dipst ick Glucose normal Not Available [address], [place], [address], 03/31/2025 09:23:13 03/31/20 25 03/31/2025 urina lysis , dipst ick Appearance normal [facility] [address], [place], [address], 03/31/2025 09:23:13 03/31/20 25 03/31/2025 urina lysis , dipst ick Color normal Not Available [address], [place], [address], 03/31/2025 09:23:13 04/01/20 25 04/01/2025 WOMEN 'S HEALT H SWAB PLUS, DENIS bacterial vaginosis (bv), tma Negati ve negati ve Not Available [facility] (Lab) [address] [place], [address], 04/02/2025 14:08:45 04/01/20 25 04/01/2025 [facility], DENIS mekhi species, tma Negati ve negati ve Not Available [facility] (Lab) [address] [place], [address], 04/02/2025 14:08:45 04/01/20 25 04/01/2025 WOMEN 'S HEALT H SWAB PLUS, DENIS mekhi glabrata, tma Negati ve negati ve Not Available [facility] (Lab) [address] [place], [address], 04/02/2025 14:08:45 04/01/20 25 04/01/2025 [facility], DENIS trichomonas vaginalis, tma Negati ve negati ve Not Available [facility] (Lab) [address] [facility], [place], [address], 04/02/2025 14:08:45 04/01/20 25 04/01/2025 [facility], DENIS chlamydia trachomatis, PCR Negati ve negati ve Not Available [facility] (Lab) [address] [place], [address], 04/02/2025 14:08:45 04/01/20 25 04/01/2025 [facility], DENIS neisseria gonorrhoeae, [...] ded in this panel . Not Available [facility] (Lab) [address] [place], [address], 04/02/2025 14:08:45 04/22/2004/22/2025 CULTU RE: URINE result report SEE RESULT S BELOW Test: Cultu re: Urine Speci men Sourc e: Urine Voide d Speci men Type: Urine Speci men Date: 2024 1314 Resul t Date: 2024 0322 Resul t Statu s: Final resul t Abnor mal: No Resul ting Lab: [facility] [address] [facility] [address] Tel: CULTU RE ----- ----- ----- --- No growt h in 1 day (dete ction level of 10,00 0 colon ies / ml.) Not Available [facility] (Lab) [address], [place], [address], 04/24/2025 04:28:01 04/22/20 25 04/22/2025 urina lysis , dipst ick Leukocytes + Not Available [address], [place], [address], 04/22/2025 10:01:51 04/22/20 25 04/22/2025 urina lysis , dipst ick Protein + Not Available [address], [place], [address], 04/22/2025 10:01:51 04/22/20 25 04/22/2025 urina lysis , dipst ick pH 8 Not Available [address], [place], [address], 04/22/2025 10:01:51 04/22/20 25 04/22/2025 urina lysis , dipst ick Blood + Not Available [address], [place], [address], 04/22/2025 10:01:51 04/22/2004/22/2025 urina lysis , dipst ick Specific Tibbie 1.010 Not Available [facility] [address], [place], [address], 04/22/2025 10:01:51 04/22/2004/22/2025 urina lysis , dipst ick Ketone + Not Available [address], [place], [address], 04/22/2025 10:01:51 06/23/2006/23/2025 HEMAT OCRIT (HCT) HCT 35.6 % (based on docume nted legal sex) 34.0-4 5.0 Not Available [facility] (Lab) [address] [facility], [place], [address], 06/24/2025 11:45:32 06/23/20 25 06/23/2025 HEMOG LOBIN (HGB) HGB 11.1 g/dL (based on docume nted legal sex) 11.6-1 5.4 low Not Available [facility] (Lab) [address] [facility], [place], [address], 06/24/2025 11:45:32 06/23/20 25 06/23/2025 GTT - GESTA ROLAND L SCREE N, ACOG OB glucose, 1 hour screen 180 mg/dL 70-135 high Not Available [facility] (Lab) [address] [facility], [place], [address], 06/24/2025 11:45:33 06/23/20 25 06/23/2025 HIV 1/2 ANTIG EN/AN TIBOD Y, REFLE X CONFI RMATI ON HIV antigen/anti body Nonrea ctive nonrea ctive HIV-1 antig en and HIV-1 /HIV- 2 antib odies were not detec greg. No labor atory evide nce of HIV infec tion. Not Available [facility] (Lab) [address] [facility], [place], [address], 06/24/2025 11:45:33 06/23/20 25 06/23/2025 RPR SCREE N, REFLE X TITER /CONF IRMAT ION RPR qualitative Nonrea ctive nonrea ctive Not Available [facility] (Lab) [address] [facility], [place], [address], 06/24/2025 11:45:34 07/21/20 25 07/21/2025 CULTU RE: URINE result report SEE RESULT S BELOW Test: Cultu re: Urine Speci men Sourc e: Urine - Clean Catch Speci men Type: Urine Speci men Date: 2024 1024 Resul t Date: 2024 0252 Resul t Statu s: Final resul t Abnor mal: No Resul ting Lab: [facility] [address] [facility] [address] Tel: CULTU RE ----- ----- ----- --- No growt h in 1 day (dete ction level of 10,00 0 colon ies / ml.) Not Available [facility] (Lab) [address] [place], [address], 07/23/2025 03:57:01 07/21/2007/21/2025 urina lysis , dipst ick Leukocytes ++ Not Available [address], [place], [address], 07/21/2025 11:03:04 07/21/20 25 07/21/2025 urina lysis , dipst ick Nitrite neg Not Available [address], [place], [address], 07/21/2025 11:03:04 07/21/20 25 07/21/2025 urina lysis , dipst ick Urobilinogen neg Not Available [facility] hern[facility] [address], [place], [address], 07/21/2025 11:03:04 07/21/20 25 07/21/2025 urina lysis , dipst ick Protein + Not Available [address], [place], [address], 07/21/2025 11:03:04 07/21/20 25 07/21/2025 urina lysis , dipst ick pH 5 Not Available [address], [place], [address], 07/21/2025 11:03:04 07/21/20 25 07/21/2025 urina lysis , dipst ick Specific Tibbie 1.030 Not Available [facility] nita [address], [place], [address], 07/21/2025 11:03:04 07/21/20 25 07/21/2025 urina lysis , dipst ick Ketone +++ Not Available [address], [place], [address], 07/21/2025 11:03:04 07/21/20 25 07/21/2025 urina lysis , dipst ick Bilirubin neg Not Available Ja[address], [place], [address], 07/21/2025 11:03:04 07/21/20 25 07/21/2025 urina lysis , dipst ick Glucose neg Not Available [address], [place], [address], 07/21/2025 11:03:04 07/21/20 25 07/21/2025 urina lysis , dipst ick Appearance cloudy Not Available [address], [place], [address], 07/21/2025 11:03:04 07/21/20 25 07/21/2025 urina lysis , dipst ick Color dark Not Available [address], [place], [address], 07/21/2025 11:03:04 08/04/20 25 08/04/2025 CMP(C OMPRE HENSI VE METAB OLIC PANEL ) sodium 138 mmol/ L 133-14 6 Not Available [facility] (Lab) [address] [facility], [place], [address], 08/05/2025 13:39:18 08/04/20 25 08/04/2025 CMP(C OMPRE HENSI VE METAB OLIC PANEL ) potassium 4.0 mmol/ L 3.5-5. 1 Not Available [facility] (Lab) [address] [facility], [place], [address], 08/05/2025 13:39:18 08/04/20 25 08/04/2025 CMP(C OMPRE HENSI VE METAB OLIC PANEL ) chloride 105 mmol/ L 98-107 Not Available [facility] (Lab) [address] [facility], [place], [address], 08/05/2025 13:39:18 08/04/20 25 08/04/2025 CMP(C OMPRE HENSI VE METAB OLIC PANEL ) carbon dioxide 25 mmol/ L 21-31 Not Available [facility] (Lab) [address] [facility], [place], [address], 08/05/2025 13:39:18 08/04/20 25 08/04/2025 CMP(C OMPRE HENSI VE METAB OLIC PANEL ) anion gap 8 mmol/ L 4-13 Not Available [facility] (Lab) [address] [facility], [place], [address], 08/05/2025 13:39:18 08/04/20 25 08/04/2025 CMP(C OMPRE HENSI VE METAB OLIC PANEL ) blood urea nitrogen 10 mg/dL 7-[address] [facility] (Lab) [address] [facility], [place], [address], 08/05/2025 13:39:18 08/04/20 25 08/04/2025 CMP(C OMPRE HENSI VE METAB OLIC PANEL ) creatinine 0.41 mg/dL 0.60-1 .30 low Not Available [facility] (Lab) [address] [facility], [place], [address], 08/05/2025 13:39:18 08/04/20 25 08/04/2025 CMP(C OMPRE HENSI VE METAB OLIC PANEL ) egfrcr (CKD-epi 2020) >90 mL/mi n/1.7 3_m2 >=60 Not Available [facility] (Lab) [address] [facility], [place], [address], 08/05/2025 13:39:18 08/04/20 25 08/04/2025 CMP(C OMPRE HENSI VE METAB OLIC PANEL ) calcium 8.9 mg/dL 8.3-10 .5 Not Available [facility] (Lab) [address] [facility], [place], [address], 08/05/2025 13:39:18 08/04/20 25 08/04/2025 CMP(C OMPRE HENSI VE METAB OLIC PANEL ) glucose 116 mg/dL 70-100 high Not Available [facility] (Lab) [address] [facility], [place], [address], 08/05/2025 13:39:18 08/04/20 25 08/04/2025 CMP(C OMPRE HENSI VE METAB OLIC PANEL ) protein, total 6.1 g/dL 6.4-8. 3 low Not Available [facility] (Lab) [address] [facility], [place], [address], 08/05/2025 13:39:18 08/04/20 25 08/04/2025 CMP(C OMPRE HENSI VE METAB OLIC PANEL ) albumin 3.5 g/dL 3.5-5. 0 Not Available [facility] (Lab) [address] [facility], [place], [address], 08/05/2025 13:39:18 08/04/20 25 08/04/2025 CMP(C OMPRE HENSI VE METAB OLIC PANEL ) ALT 11 units /L 9-43 Not Available [facility] (Lab) [address] [facility], [place], [address], 08/05/2025 13:39:18 08/04/20 25 08/04/2025 CMP(C OMPRE HENSI VE METAB OLIC PANEL ) alkaline phosphatase 98 units /L 34-104 Not Available [facility] (Lab) [address] [facility], [place], [address], 08/05/2025 13:39:18 08/04/20 25 08/04/2025 CMP(C OMPRE HENSI VE METAB OLIC PANEL ) AST 15 units /L 13-39 Not Available [facility] (Lab) [address] [facility], [place], [address], 08/05/2025 13:39:18 08/04/20 25 08/04/2025 CMP(C OMPRE HENSI VE METAB OLIC PANEL ) bilirubin, total 0.3 mg/dL 0.2-1. 2 Not Available [facility] (Lab) [address] [facility], [place], [address], 08/05/2025 13:39:18 08/04/20 25 08/04/2025 BILE ACIDS , TOTAL bile acids, total 4 umol/ L 0-10 Test Perfo rmed by: [facility] [address] Not Available [facility] (Lab) [address] [facility], [place], [address], 08/05/2025 13:39:19 03/02/20 25 03/02/2025 US, obste tric, nucha l trans lucen cy No observ ation record ed. [email or web address] [address], [place], [address], 03/02/2025 13:35:30 03/02/20 25 03/02/2025 US, obste tric, nucha l trans lucen cy No observ ation record ed. [email or web address] [address], [place], [address], 03/03/2025 14:08:39 03/08/20 25 03/08/2025 US, obste tric, 1st trime ster No observ ation record ed. [email or web address] [address], [place], [address], 03/08/2025 12:22:22 03/08/20 25 03/08/2025 US, obste tric, 1st trime ster No observ ation record ed. [email or web address] [address], [place], [address], 03/10/2025 15:03:13 04/01/20 25 03/24/2025 qamar r monit or No observ ation record ed. [address] [facility], [place], [address], 04/08/2025 12:36:45 04/01/20 25 03/22/2025 qamar r monit or No observ ation record ed. [address] (Pulmonary) [address] [place] [address] [address] [facility], [place], [address], 04/06/2025 08:59:34 04/20/20 25 04/20/2025 US, obste tric, limit ed No observ ation record ed. [email or web address] [address], [place], [address], 04/20/2025 17:39:30 04/20/20 25 04/20/2025 US, obste tric, follo w-up No observ ation record ed. [email or web address] [address], [place], [address], 04/23/2025 08:32:54 04/28/20 25 04/28/2025 US, obste tric, 2nd or 3rd trime ster No observ ation record ed. [email or web address] [address], [place], [address], 04/28/2025 17:48:42 04/28/20 25 04/28/2025 US, obste tric, 2nd or 3rd trime ster No observ ation record ed. [email or web address] [address], [place], [address], 05/04/2025 22:16:11 05/07/20 25 05/07/2025 non-s tress test No observ ation record ed. [address], [place], [address], 05/28/2025 13:33:54 05/21/20 25 05/21/2025 CT, head + brain , w/o contr ast No observ ation record ed. [address], [place], [address], 05/24/2025 13:48:57 05/28/20 25 05/28/2025 US, obste tric, follo w-up No observ ation record ed. [email or web address] [address], [place], [address], 05/28/2025 17:32:34 05/28/20 25 05/28/2025 US, obste tric, follo w-up No observ ation record ed. [email or web address] [address], [place], [address], 06/01/2025 15:13:13 08/10/16 2506/07/2025 US, obste tric, follo w-up No observ ation record ed. [email or web address] [facility] [address] [facility], [place], [address], 06/15/2025 10:53:46 07/07/20 25 07/07/2025 US, obste tric, follo w-up No observ ation record ed. [email or web address] [address], [place], [address], 07/07/2025 13:18:01 07/07/2007/07/2025 US, obste tric, follo w-up No observ ation record ed. [email or web address] [address], [place], [address], 07/07/2025 11:29:37 08/04/20 25 08/04/2025 US, obste tric, follo w-up No observ ation record ed. [email or web address] [address], [place], [address], 08/04/2025 15:08:50 08/04/2008/04/2025 US, obste tric, follo w-up No observ ation record ed. [email or web address] [address], [place], [address], 08/06/2025 10:41:50 08/11/2008/11/2025 non-s tress test No observ ation record ed. [email or web address] [address], [place], [address], 08/11/2025 17:37:52 08/11/20 non-s tress test No observ ation record ed. [email or web address] [address], [place], [address], 08/11/2025 17:38:11 08/15/2008/15/2025 non-s tress test No observ ation record ed. [place] [id number] [facility] [address], [place], [address], 08/21/2025 10:18:57 08/15/2008/15/2025 US, obste tric, bioph ysica l profi le No observ ation record ed. [place] [id number] [facility] [address], [place], [address], 08/17/2025 10:50:53 08/18/2008/18/2025 US, obste tric, bioph ysica l profi le + non-s tress test No observ ation record ed. [email or web address] [address], [place], [address], 08/18/2025 10:21:39 08/18/2008/18/2025 US, obste tric, bioph ysica l profi le + non-s tress test No observ ation record ed. [email or web address] [address], [place], [address], 08/18/2025 10:35:44 08/18/2008/18/2025 non-s tress test No observ ation record ed. [email or web address] [address], [place], [address], 08/18/2025 17:34:03 08/18/20 non-s tress test No observ ation record ed. [email or web address] [address], [place], [address], 08/18/2025 16:06:09 08/25/2008/25/2025 US, obste tric, bioph ysica l profi le + non-s tress test No observ ation record ed. [email or web address] [address], [place], [address], 08/25/2025 18:52:06 08/25/2008/25/2025 US, obste tric, follo w-up No observ ation record ed. joelle Esha [address], [place], [address], 08/25/2025 15:47:28 08/25/2008/25/2025 non-s tress test No observ ation record ed. [address], [place], [address], 08/25/2025 18:12:15 08/25/20 non-s tress test No observ ation record ed. [address], [place], [address], 08/25/2025 17:21:19 08/30/2008/30/2025 imagi ng/di agnos tic resul t No observ ation record ed. [address] [place] [address], [id number], 08/31/2025 18:17:32 09/01/2009/01/2025 non-s tress test No observ ation record ed. [address] [facility], [place], [address], 09/13/2025 11:32:22 09/01/2009/01/2025 US, obste tric No observ ation record ed. [address], [place], [address], 09/02/2025 15:56:01 09/01/20 25 09/01/2025 non-s tress test No observ ation record ed. [address], [place], [address], 09/02/2025 14:32:38 Result Notes None recorded. Problems Name Problem SNOMED Code Status Onset Date Resolution Date Notes Provider Name and Address Organization Details Recorded Time Hypereme sis 580622423 Completed phenerga n now prn Asia arias rachel [facility] 2 16:43:51 Anxiety in pregnanc y [id number] Completed will continue to monitor Asia Baileyrafakandyganeshpetrona arias rahcel [facility] 2 16:43:51 Past pregnanc y history of gestatio nal diabetes mellitus [id number] Completed Early 1 hr GTT @ 20wks 11/03 APPT [facility] Baileyrafakandyganeshpetrona arias [facility] 2 16:43:51 Spinal muscular atrophy 5201988 Completed Carrier - Not in contact with FOB. Asia Luis hugo rachel [facility] 2 16:43:51 Anxiety 84980299 Completed prozac Karina ramos [facility] 4 11:00:46 Nausea 388108904 Completed d/c zofran pump 11/08 per pt request Karina ramos [facility] 4 11:00:46 Postpart um hemorrha ge [id number] Completed 2017 with d&c Karina ramos [facility] 4 11:00:46 Normal pregnanc y in multigra jessy [id number] 90718 Completed 201907/05/2021 Encounte r for supervis ion of other normal pregnanc y, 3rd trimeste r;Record ed Elsewher e: No Locat ion: [facility] S ource: EHR Surgical Garment Fitter yvrose: N Practi ce ID: 0001 Gigi lable Time: 10:45:00 AM Karina ramos [facility] 1 10:15:27 Gestatio n period, 37 weeks [id number] Completed 201907/05/2021 37 weeks gestatio n of pregnanc y;Record ed Elsewher e: No [facility]: EHR Surgical Garment Fitter yvrose: N Natalyati ce ID: 0001 Gigi lable Time: 09:00:00 AM Karina ramos [facility] 10:15:[address] Concept Completed 201907/05/2021 Matern care for abnlt fetl hrt rate or rhym, 3rd tri, unsp;Rec orded Elsewher e: No [facility]: EHR Surgical Garment Fitter yvrose: N Natalyati ce ID: 0001 Gigi lable Time: 08:45:00 AM Karina ramos, [facility] 10:15:29 Gestatio nal diabetes mellitus 02401041 Completed 201907/05/2021 Gestatio nal diabetes mellitus in pregnanc y, diet controll ed;Recor ded Elsewher e: No Locat ion: [facility] S ource: EHR Surgical Garment Fitter yvrose: N Natalyati ce ID: 0001 Gigi lable Time: 11:45:00 AM Karina ramos, [facility] 10:15:25 Gestatio n period, 38 weeks 55211091 Completed 201907/05/2021 38 weeks gestatio n of pregnanc y;Record ed Elsewher e: No Locat ion: [facility] S ource: EHR Surgical Garment Fitter yvrose: N Natalyati ce ID: 0001 Gigi lable Time: 11:30:00 AM Karina ramos [facility] 10:15:13 Amenorrh ea 71193017 Completed 202007/10/2021 Tammi ramos [facility] 13:08:35 Pregnanc y 58309865 Completed 202003/29/2022 Karina Heike null, [facility] 4 11:00:49 Pregnanc y 46295934 Completed 202304/22/2024 Karina Burroughs null, [facility] 4 11:00:49 Headache 20456441 Active 2023 Karina Burroughs null, [facility] 5 16:19:28 Pregnanc y 90167806 Active 2023 Karina Heike null, [facility] 5 16:19:28 Uncompli cated moderate persiste nt asthma 018532397 Active 2024 albutero l prn Shawn Bradley MD [address], [place], [address], [facility] 5 13:08:36 Anxiety 75708725 Active 2024 sertrali ne started 03/02/25 changed to prozac 10 on Shawn Bradley MD [address], [place], [address], [facility] 5 17:05:48 Nausea and vomiting 76619654 Active 2024 Shawn Bradley MD [address], [place], [address], [facility] 5 13:20:27 Placenta circumva llata 2006340 Active 2024 32wk growth Ryann Castro null, [facility] 5 09:44:35 Frequent headache 143226293 Active 2024 transpor t to [facility] 05/21, discharg e 05/23 MFM referral [...] 2-3 times a week. Ryann Matthew ramos [facility] 5 10:55:26 Abnormal placenta affectin g manageme nt of mother 28964033 Active 2024 MCI serial growth us Ryann Castro rachel [facility] 10:46:25 Iron deficien cy anemia 20567857 Active 2024 SS MFM tx venofer 200mg x1 HGB 10.6 Ryann Matthew ramos [facility] 5 15:21:25 Gestatio nal diabetes mellitus 95242597 Active 2024 checking bs QID - ruled in GDM Referral faxed to [facility] 07/07 Ryann Matthew ramos [facility] 5 14:36:52 Notes:Order faxed to [facility] access 08/10 for PICC line, and home health already caring for pt. Vladimir RN at [phone] Problem Notes None recorded. Procedures Surgical History Date Name Laterality Status Provider Name and Address Organization Details Recorded Time 025 SALPINGECTOMY, LAPAROSCOPIC (SURG) completed [facility] Available [facility] 09/06/2025 11:19:17 025 Date of Last Pap Smear completed Karina Burroughs [facility] 01/28/2025 11:19:42 024 Nexplanon Removal completed Shawn Bradley MD [address], [place], [address], [facility] 08/05/2024 15:09:58 024 Control Implant Insertion completed Anju Mcnamara CNM [address], [place], [address], [facility] 05/08/2024 17:59:34 024 cholecystectomy completed Karina Burroughs [facility] 03/31/2025 09:18:57 018 Dilation and Curettage completed Karina Burroughs [facility] 07/05/2021 10:17:50 Imaging Results None recorded. Procedure Notes None recorded. Medical Equipment None Reported. Allergies Allergen ID Allergen Name Allergen Category Reaction Reaction Severity Criticality Documentation Date Start Date Code Code System Note Provider Name and Address Organization Details Recorded Time 33744 terbutali ne medicatio n anaphylax is Not available Not available 01/27/20252021 15846 RxNorm Kraina Burroughs [facility], [facility] 16:19:27 09264 amoxicill in medicatio n Not available Not available Not available 09/10/2025 723 RxNorm Not Available [employer] - External Data Service - prod 16:39:37 50934 terbinafi ne medicatio n anaphylax is Not available [facility] 09/10/20252024 12130 RxNorm Not Available [employer] - prod 16:40:54 Medications Name [...] Prescrib ed Elsewher e: Yes Loca tion: [facility] odify By: [email or web address] Encounte r DateTime : [...] n (supplie d by office) insert lot [id number] Exp 01/2026 Not Available Not Available Not Available 28 mg iron-800 mcg tablet 07/05 completed Prescrib ed [facility] e: Yes Loca tion: [facility] odify By: prabhjot barrera DateTime : 01/14/20 10:45:00 AM Not Available Not Available Not Available lidocaine 5 % topical ointment APPLY OINTMENT EXTERNAL LY TO RIBS THREE TIMES DAILY NEEDED 01/14 completed Not Available Not Available Not Available FLATBED STITCHER-PNV-DH A 28 mg iron-1 mg-200 mg capsule [...] Details Last Updated DateTime 08/18/2025 162.56 cm 26986.9960 8 g 116/77 mm[Hg] Melyssa Santo [facility] 08/18/2025 10:57:44 Date Recorded Body height Body weight Systolic And Diastolic Provider Name and Address Organization Details Last Updated DateTime 08/18/2025 162.56 cm 27190.9960 8 g 116/77 mm[Hg] Emma Elkinsfredi [facility] 08/18/2025 16:03:36 Social History Question Answer Notes LastModified by Organizat ion Details LastModified Time Tobacco Smoking Status Former Smoker Karina ramos, [facility] 07/05/2021 09:06:21 If You Are , What Was Your Level Of Alcohol Consumption Prior To ? Occasional [email or web address] Information not available 03/31/2025 Are You Blind Or Do You Have Difficulty Seeing? No [email or web address] Information not available 07/05/2021 What Is Your Level Of Caffeine Consumption? Heavy [email or web address] Information not available 07/05/2021 In The 14 Days Before Symptom Onset, Have You Had Close Contact With A Laboratory-confir med COVID-19 While That Case Was Ill? No [email or web address] Information not available 07/05/2021 In The 14 Days Before Symptom Onset, Have You Had Close Contact With A Person Who Is Under Investigation For COVID-19 While That Person Was Ill? No [email or web address] Information not available 07/05/2021 Have You Been To An Area Known To Be High Risk For COVID-19? No [email or web address] Information not available 07/05/2021 Are You Deaf Or Do You Have Serious Difficulty Hearing? No [email or web address] Information not available 07/05/2021 What Type Of Diet Are You Following? REGULAR [email or web address] Information not available 07/05/2021 Which Illicit Or Recreational Drugs Have You Used? Marijuana [email or web address] Information not available 07/05/2021 Have You Ever Been Counseled For Unhealthy Alcohol Use? No [email or web address] Information not available 07/05/2021 Do You Use Your Seat Belt Or Car Seat Routinely? Yes [email or web address] Information not available 07/05/2021 Do You Have Smoke And Carbon Monoxide Detectors In Your Home? Yes [email or web address] Information not available 07/05/2021 Do You Use Sunscreen Routinely? Yes [email or web address] Information not available 07/05/2021 Has Tobacco Cessation Counseling Been Provided? No [email or web address] Information not available 07/05/2021 Have You Used IV Drugs? No [email or web address] Information not available 07/05/2021 Do You Have Difficulty Walking Or Climbing Stairs? No [email or web address] Information not available 12/06/2021 Sex: Unknown Functional Status Question Answer Note LastModified by Organizat ion Details LastModified Time Do you use any illicit or recreational drugs? Yes [email or web address] Information not available 07/05/2021 Do you or have you ever used any other forms of tobacco or nicotine? Yes [email or web address] Information not available 07/05/2021 What is your level of alcohol consumption? None [email or web address] Information not available 03/31/2025 Do you or have you ever used smokeless tobacco? Never used smokeless tobacco [email or web address] Information not available 07/05/2021 Are you able to walk independently without assistance or assistive devices? YESWOREST [email or web address] Information not available 07/05/2021 Are you able to care for yourself independently? Yes [email or web address] Information not available 12/06/2021 Do you have difficulty dressing, bathing, grooming, or toileting? No [email or web address] Information not available 12/06/2021 Do you or have you ever used e-cigarettes or vape? Current user of electronic cigarettes [email or web address] Information not available 07/05/2021 What is your exercise level? Occasional [email or web address] Information not available 07/05/2021 Mental Status Question Answer Note LastModified by Organization D etails LastModified Time Do you feel stressed (tense, restless, nervous, or anxious, or unable to sleep at night)? [id number] Information not available 07/05/2021 Family History Relationship Description Onset Age of this Age Resolved Age Notes LastModified by Organization Details LastModified Time Father No current problems or disability Not available 05/2021 09:06:31 Mother No current problems or disability [email or web address] Not available 05/2021 09:06:31 Medical History Condition [...] ICD10 Code Diagnosis IMO Codes Diagnosis Note [id number] Anju Mcnamara CNM [facility] [address] [address] 07/21/2025 09:28:54 07/21/2025 12:36:06 Pain in pelvis 49835381 R10.2 865332 Gestation period, 32 weeks 9698800 Z3A.32 0761125 [id number] Shawn Bradley MD [facility] [address],[place] [address] 08/04/2025 14:02:59 08/04/2025 15:06:33 Gestational diabetes mellitus 82110075 O24.410 O43.103 O43.113 Z3A.34 00798427 [id number] [facility] [address],[place] [address] 08/04/2025 14:21:57 08/04/2025 15:26:03 Gestation period, 34 weeks 16253327 Z3A.34 1095314 Pruritic d isorder of skin 7981282275 L29.9 99999 plan labs today, ursadiol BID [id number] [facility] [address],[place] [address] 1 08/11/2025 14:51:38 08/11/2025 17:16:44 Gestational diabetes mellitus 42618783 O24.414 68416908 [id number] [facility] [address] [place] [address] 08/11/2025 16:25:59 08/11/2025 17:46:32 Gestational diabetes mellitus 93671304 O24.414 24953765 [id number] Shawn Bradley MD [facility] [address],[place] [address] 08/18/2025 09:40:51 08/18/2025 10:15:47 Gestational diabetes mellitus 76484589 O24.414 Z3A.36 03989892 [id number] Anju Mcnamara CNM [facility] [address] [place] [address] 08/18/2025 09:41:06 08/18/2025 11:24:04 Gestation period, 36 weeks 60076203 Z3A.36 4355735 cont pnv [id number] Anju Mcnamara CNM [facility] [address] [address] 08/18/2025 09:41:16 08/18/2025 16:17:31 Gestational diabetes mellitus class A2 16039236 O24.414 68453002 Health Concerns Section Related Observation LastModified by Organization Detai ls LastModified Time None Recorded Concern Status LastModified by Organization Details LastModified Time None Recorded Payers Encounter Date Sequence Insurance Name Policy Number Policy Roberts Covered Member ID Roberts Member ID Guarantor Name 08/18/2025 1 FLOOD [facility] (MEDICAID HMO) [id number] Yuni Mejia [id number] Yuni Mejia Notes Date Note Type Note Provider Name and Address Organization Details Recorded Time 08/18/2025 text/html Generic HPI TemplateReported by Patient Anju CastilloHilda Mcnamara CNM [address], [place], [address], [facility] 08/18/2025 11:23:41 OBGyn Episode Ob Episode Information Episode Created Date Number of Fetuses Patient Bloodtype Patient rh Status Prepregnancy Weight lbs Domestic Partner Domestic Partner Phone Father Name Engineering Laboratory Technician Status 03/02/20 25 1 B Positive 164 OPEN Fetus Data First Name Last Name Admitted to NICU Weight (g) Sex Living Outcome Pediatric Complications Fetus ID Race Codes Race Delivery Type [id number] Problems Problem Notes SDH form completed 5GI consult Tachycardia Holter monitor 72 order- pt sent back on 03-27-25 Cardiology referral faxed per Dr Martínez office calling pt 04/21 to schedule consult scheduled 05/11 11:15AM Problem Name Start Date End Date Resolution Snomed Code Not e Uncomplicated moderate persistent asthma 03/02/2025 932535349 albuterol prn Abnormal placenta affecting management of mother 05/04/2025 30573239 MCI serial grow th us Iron deficiency anemia 05/25/2025 52982335 [facility] M[facility] tx [place] 200mg x1 HGB 10.6 Nausea and vomiting 03/02/2025 15744661 Anxiety 03/02/2025 85260738 sertralin e started 03/02/25 changed to prozac 10 on Gestational diabetes mellitus 07/08/2025 57504939 checking bs QID - ruled in GDM Referral faxed to [facility] 07/07 Frequent headache 05/03/2025 [id number] [place] to [facility] 05/21, discharge 05/23 MF referral faxed 05/24 SS Neurology consult pending per KAJAL Pittman [facility]- Neuro [facility] unable to see pt due to insurance 05/25[facility] 07/05/25 Level US & Consult (see [facility] consult zayas recommendations ) regimen prn Imitrex 50mg for acute migraine, vitamin B2 (Riboflavin) 400mg, Coenzyme q10 300mg and magnesium oxide 200 to 600mg daily. minimize use of Excedrin or Tylenol to no more than 2-3 times a week. 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/2025 7473767 32wk growth us Jun Calculation Initial Jun [...] Weight in lbs Pre/Post Dialysis Refused Weight 158.103596690205 BP Diastolic BP Location Tested BP Systolic [...] Weight in lbs Pre/Post Dialysis Refused Weight 158.217887060948 BP Diastolic BP Location Tested BP Systolic [...] Weight in lbs Pre/Post Dialysis Refused Weight 162.006813777349 BP Diastolic BP Location Tested BP Systolic BP Type 78 123 Fetus Heart Rate Present A 148 Fetus Movement A Yes Comments Patient is having having ronny n, cramping and vaginal discharge. went to ed exam done cultures and rx sent, ?FM, await nurse monitoring results rfilled zofran, precautions and education f/u [...] Type Weight in lbs Pre/Post Dialysis Refused 168.924632855486 BP Diastolic BP Location Tested BP Systolic [...] Type Weight in lbs Pre/Post Dialysis Refused 169.822070001756 BP Diastolic BP Location Tested BP Systolic [...] Weight in lbs Pre/Post Dialysis Refused Weight 175.386278344694 BP Diastolic BP Location Tested BP Systolic [...] Weight in lbs Pre/Post Dialysis Refused Weight 182.812770752145 BP Diastolic BP Location Tested BP Systolic [...] Weight in lbs Pre/Post Dialysis Refused Weight 181.522328740241 BP Diastolic BP Location Tested BP Systolic BP Type 73 L arm 131 sitting Fetus Heart Rate Present Fetus Movement A Yes Comments viral URI testied neg at urg ent care, nausea resolved, efw 68%, +FM plan education and precautions f/u 2 weeks diagnosed GDM, 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, 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 reviewed protein vs carb Flowsheet Date 07/21/2025 Gibson Score Blood Edema Fundus Height Fundus Units Glucose Ketones Leukocytes Nitrite Labor Signs Protein Cervic Dilation Cervic Effacement Cervic Station Type Weight in lbs Pre/Post Dialysis Refused Weight 181.084739926256 BP Diastolic BP Location Tested BP Systolic BP Type 78 L arm 127 sitting Fetus Heart Rate Present A 150 Fetus Movement A Yes Comments rpt urine culture +FM review ed blood sugars, 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..] Weight in lbs Pre/Post Dialysis Refused Weight 184.103239816519 BP Diastolic BP Location Tested BP Systolic [...]
--- OUTSIDE RECORDS SUMMARY | 2025-09-14 00:22 | XMS_ITS | Continuity of Care Document ---
Author Organization [facility], [facility] Address [address] [place] [address] [place] [address] Care Team Providers Care Advertising Director Name Role Phone SEAN CARLOS Primary Care Provider [phone] Assessment Encounter Date Assessment Date Assessment LastModified by Organization Details LastModified Time 08/18/2025 08/18/2025 Patient is __36_weeks . Discussed plan. Not available 08/18/2025 11:22:28 Plan of Treatment Reminders Order Date Submit [...] Not Available [facility] [address], [place], [address], 03/06/2025 03:58:26 03/06/20 25 03/06/2025 [UNIT Y] ANEUP LOIDY NIPT sex chromosome aneuploidy NOT DETECT ED normal Not Available [facility] [address], [place], [address], 03/06/2025 03:58:26 03/06/20 25 03/06/2025 [UNIT Y] ANEUP LOIDY NIPT monosomy X LOW RISK <1 in 10,000 normal Not Available [facility] [address], [place], [address], 03/06/2025 03:58:26 03/06/20 25 03/06/2025 [UNIT Y] ANEUP LOIDY NIPT trisomy 13 LOW RISK <1 in 10,000 normal Not Available [facility] [address], [place], [address], 03/06/2025 03:58:26 03/06/20 25 03/06/2025 [UNIT Y] ANEUP LOIDY NIPT trisomy 18 LOW RISK <1 in 10,000 normal Not Available [facility] [address], [place], [address], 03/06/2025 03:58:26 03/06/20 25 03/06/2025 [UNIT Y] ANEUP LOIDY NIPT trisomy 21 LOW RISK <1 in 10,000 normal Not Available [facility] [address], [place], [address], 03/06/2025 03:58:26 03/06/20 25 03/06/2025 [UNIT Y] ANEUP LOIDY NIPT sex FEMALE normal Not Available [facility] [address], [place], [address], 03/06/2025 03:58:26 03/06/20 25 03/06/2025 [UNIT Y] ANEUP LOIDY NIPT gestation SINGLE TON normal Not Available [facility] [address], [place], [address], 03/06/2025 03:58:26 03/06/20 25 03/06/2025 [UNIT Y] ANEUP LOIDY NIPT for detailed report, see pdf See PDF normal Not Available [facility] [address], [place], [address], 03/06/2025 03:58:26 03/02/20 25 03/02/2025 CULTU RE: URINE result report SEE RESULT S BELOW Test: Cultu re: Urine Speci men Sourc e: Urine - Clean Catch Speci men Type: Urine Speci men Date: 025 1455 Resul t Date: 2138 Resul t Statu s: Final resul t Abnor mal: No Resul ting Lab: [facility] [address] [facility] [address] Tel: CULTU RE ----- ----- ----- --- No growt h in 1 day (dete ction level of 10,00 0 colon ies / ml.) Not Available [facility] (Lab) [address] [facility], [place], [address], 03/03/2025 22:42:27 03/12/2003/12/2025 CULTU RE: URINE result report SEE RESULT S BELOW Test: Cultu re: Urine Speci men Sourc e: Urine - Clean Catch Speci men Type: Urine Speci men Date: 2024 1600 Resul t Date: 2024 0610 Resul t Statu s: Final resul t Abnor mal: No Resul ting Lab: [facility] [address] [facility] [address] Tel: CULTU RE ----- ----- ----- --- No growt h in 1 day (dete ction level of 10,00 0 colon ies / ml.) Not Available [facility] (Lab) [address] [facility], [place], [address], 03/14/2025 07:15:03 03/12/2003/12/2025 urina lysis , dipst ick Leukocytes ++ Not Available [address], [place], [address], 03/12/2025 16:45:06 03/12/2003/12/2025 urina lysis , dipst ick Protein + Not Available [facility] [address], [place], [address], 03/12/2025 16:45:06 03/12/20 25 03/12/2025 urina lysis , dipst ick pH 5 Not Available [facility] [address], [place], [address], 03/12/2025 16:45:06 03/12/20 25 03/12/2025 urina lysis , dipst ick Blood trace Not Available [facility] [address], [place], [address], 03/12/2025 16:45:06 03/12/20 25 03/12/2025 urina lysis , dipst ick Specific [place] 1.015 Not Available [facility] [address], [place], [address], 03/12/2025 16:45:06 03/12/20 25 03/12/2025 urina lysis , dipst ick Ketone +++ Not Available [address], [place], [address], 03/12/2025 16:45:06 03/31/20 25 03/31/2025 TSH, REFLE X FREE T4 TSH 0.42 uIU/m L 0.30-5 .33 Not Available [facility] (Lab) [address] [facility], [place], [address], 04/01/2025 03:05:12 03/31/20 25 03/31/2025 CULTU RE: URINE result report SEE RESULT S BELOW Test: Cultu re: Urine Speci men Sourc e: Urine Voide d Speci men Type: Urine Speci men Date: 1710 Resul t Date: 2256 Resul t Statu s: Final resul t Abnor mal: No Resul ting Lab: [facility] [address] [facility] [address] Tel: CULTU RE ----- ----- ----- --- Cultu re resul t (>=3 organ isms prese nt) indic ates possi ble conta minat ion. Repea t cultu re if sympt oms indic ate. Not Available [facility] (Lab) [address], [place], [address], 04/01/2025 23:59:19 03/31/20 25 03/31/2025 urina lysis , dipst ick Leukocytes +1 Not Available [facility] [address], [place], [address], 03/31/2025 09:23:13 03/31/20 25 03/31/2025 urina lysis , dipst ick Nitrite normal Not Available [address], [place], [address], 03/31/2025 09:23:13 03/31/20 25 03/31/2025 urina lysis , dipst ick Urobilinogen normal Not Available [facility] david [address], [place], [address], 03/31/2025 09:23:13 03/31/20 25 03/31/2025 urina lysis , dipst ick Protein trace Not Available [address], [place], [address], 03/31/2025 09:23:13 03/31/20 25 03/31/2025 urina lysis , dipst ick pH 5 Not Available [address], [place], [address], 03/31/2025 09:23:13 03/31/20 25 03/31/2025 urina lysis , dipst ick Specific [place] 1.020 Not Available [facility] [address], [place], [address], 03/31/2025 09:23:13 03/31/20 25 03/31/2025 urina lysis , dipst ick Ketone normal Not Available [address], [place], [address], 03/31/2025 09:23:13 03/31/20 25 03/31/2025 urina lysis , dipst ick Bilirubin normal Not Available [facility] [address], [place], [address], 03/31/2025 09:23:13 03/31/20 25 03/31/2025 urina lysis , dipst ick Glucose normal Not Available [address], [place], [address], 03/31/2025 09:23:13 03/31/20 25 03/31/2025 urina lysis , dipst ick Appearance normal Not Available [facility] [address], [place], [address], 03/31/2025 09:23:13 03/31/20 25 03/31/2025 urina lysis , dipst ick Color normal Not Available [address], [place], [address], 03/31/2025 09:23:13 04/01/20 25 04/01/2025 [facility] DENIS bacterial vaginosis (bv), tma Negati ve negati ve Not Available [facility] (Lab) [address] [place], [address], 04/02/2025 14:08:45 04/01/20 25 04/01/2025 [facility], DENIS mekhi species, tma Negati ve negati ve Not Available [facility] (Lab) [address] [place], [address], 04/02/2025 14:08:45 04/01/20 25 04/01/2025 WOMEN 'S HEALT H SWAB PLUS, DENIS mekhi glabrata, tma Negati ve negati ve Not Available [facility] (Lab) [address] [place], [address], 04/02/2025 14:08:45 04/01/20 25 04/01/2025 WOMEN 'S HEALT H SWAB PLUS, DENIS trichomonas vaginalis, tma Negati ve negati ve Not Available [facility] (Lab) [address] [place], [address], 04/02/2025 14:08:45 04/01/20 25 04/01/2025 [facility], DENIS chlamydia trachomatis, PCR Negati ve negati ve Not Available [facility] (Lab) [address] [place], [address], 04/02/2025 14:08:45 04/01/20 25 04/01/2025 [facility], DENIS neisseria gonorrhoeae, [...] [facility] (Lab) [address] , [place], [address], 04/02/2025 14:08:45 04/22/2004/22/2025 CULTU RE: URINE result report SEE RESULT S BELOW Test: Cultu re: Urine Speci men Sourc e: Urine Voide d Speci men Type: Urine Speci men Date: 2024 1314 Resul t Date: 2024 0322 Resul t Statu s: Final resul t Abnor mal: No Resul ting Lab: [facility] [address] [facility] [address] Tel: CULTU RE ----- ----- ----- --- No growt h in 1 day (dete ction level of 10,00 0 colon ies / ml.) Not Available [facility] (Lab) [address], [place], [address], 04/24/2025 04:28:01 04/22/20 25 04/22/2025 urina lysis , dipst ick Leukocytes + Not Available [address], [place], [address], 04/22/2025 10:01:51 04/22/20 25 04/22/2025 urina lysis , dipst ick Protein + Not Available [address], [place], [address], 04/22/2025 10:01:51 04/22/20 25 04/22/2025 urina lysis , dipst ick pH 8 Not Available [address], [place], [address], 04/22/2025 10:01:51 04/22/20 25 04/22/2025 urina lysis , dipst ick Blood + Not Available [address], [place], [address], 04/22/2025 10:01:51 04/22/20 25 04/22/2025 urina lysis , dipst ick Specific [place] 1.010 Not Available [facility] [address], [place], [address], 04/22/2025 10:01:51 04/22/20 25 04/22/2025 urina lysis , dipst ick Ketone + Not Available [address], [place], [address], 04/22/2025 10:01:51 06/23/20 25 06/23/2025 HEMAT OCRIT (HCT) HCT 35.6 % (based on docume nted legal sex) 34.0-4 5.0 Not Available [facility] (Lab) [address] [facility], [place], [address], 06/24/2025 11:45:32 06/23/20 25 06/23/2025 HEMOG LOBIN (HGB) HGB 11.1 g/dL (based on docume nted legal sex) 11.6-1 5.4 low Not Available [facility] (Lab) [address] [facility], [place], [address], 06/24/2025 11:45:32 06/23/20 25 06/23/2025 GTT - GESTA ROLAND L SCREE N, ACOG OB glucose, 1 hour screen 180 mg/dL 70-135 high Not Available [facility] (Lab) [address] [facility], [place], [address], 06/24/2025 11:45:33 06/23/20 25 06/23/2025 HIV 1/2 ANTIG EN/AN TIBOD Y, REFLE X CONFI RMATI ON HIV antigen/anti body Nonrea ctive nonrea ctive HIV-1 antig en and HIV-1 /HIV- 2 antib odies were not detec greg. No labor atory evide nce of HIV infec tion. Not Available [facility] (Lab) [address] [facility], [place], [address], 06/24/2025 11:45:33 06/23/20 25 06/23/2025 RPR SCREE N, REFLE X TITER /CONF IRMAT ION RPR qualitative Nonrea ctive nonrea ctive Not Available [facility] (Lab) [address] [facility], [place], [address], 06/24/2025 11:45:34 07/21/20 25 07/21/2025 CULTU RE: URINE result report SEE RESULT S BELOW Test: Cultu re: Urine Speci men Sourc e: Urine - Clean Catch Speci men Type: Urine Speci men Date: 2024 1024 Resul t Date: 2024 0252 Resul t Statu s: Final resul t Abnor mal: No Resul ting Lab: [facility] [address] [facility] [address] Tel: CULTU RE ----- ----- ----- --- No growt h in 1 day (dete ction level of 10,00 0 colon ies / ml.) Not Available [facility] (Lab) [address], [place], [address], 07/23/2025 03:57:01 07/21/2007/21/2025 urina lysis , dipst ick Leukocytes ++ Not Available [address], [place], [address], 07/21/2025 11:03:04 07/21/20 25 07/21/2025 urina lysis , dipst ick Nitrite neg Not Available [address], [place], [address], 07/21/2025 11:03:04 07/21/20 25 07/21/2025 urina lysis , dipst ick Urobilinogen neg Not Available [address], [place], [address], 07/21/2025 11:03:04 07/21/20 25 07/21/2025 urina lysis , dipst ick Protein + Not Available [address], [place], [address], 07/21/2025 11:03:04 07/21/20 25 07/21/2025 urina lysis , dipst ick pH 5 Not Available [address], [place], [address], 07/21/2025 11:03:04 07/21/20 25 07/21/2025 urina lysis , dipst ick Specific [place] 1.[address] [facility] [address], [place], [address], 07/21/2025 11:03:04 07/21/20 25 07/21/2025 urina lysis , dipst ick Ketone +++ Not Available [address], [place], [address], 07/21/2025 11:03:04 07/21/20 25 07/21/2025 urina lysis , dipst ick Bilirubin neg Not Available [facility] [address], [place], [address], 07/21/2025 11:03:04 07/21/20 25 07/21/2025 urina lysis , dipst ick Glucose neg Not Available [address], [place], [address], 07/21/2025 11:03:04 07/21/20 25 07/21/2025 urina lysis , dipst ick Appearance cloudy Not Available [address], [place], [address], 07/21/2025 11:03:04 07/21/20 25 07/21/2025 urina lysis , dipst ick Color dark Not Available [address], [place], [address], 07/21/2025 11:03:04 08/04/20 25 08/04/2025 CMP(C OMPRE HENSI VE METAB OLIC PANEL ) sodium 138 mmol/ L 133-14 6 Not Available [facility] (Lab) [address] [facility], [place], [address], 08/05/2025 13:39:18 08/04/20 25 08/04/2025 CMP(C OMPRE HENSI VE METAB OLIC PANEL ) potassium 4.0 mmol/ L 3.5-5. 1 Not Available [facility] (Lab) [address] [facility], [place], [address], 08/05/2025 13:39:18 08/04/20 25 08/04/2025 CMP(C OMPRE HENSI VE METAB OLIC PANEL ) chloride 105 mmol/ L 98-107 Not Available [facility] (Lab) [address] [facility], [place], [address], 08/05/2025 13:39:18 08/04/20 25 08/04/2025 CMP(C OMPRE HENSI VE METAB OLIC PANEL ) carbon dioxide 25 mmol/ L 21-31 Not Available [facility] (Lab) [address] [facility], [place], [address], 08/05/2025 13:39:18 08/04/20 25 08/04/2025 CMP(C OMPRE HENSI VE METAB OLIC PANEL ) anion gap 8 mmol/ L 4-13 Not Available [facility] (Lab) [address] [facility], [place], [address], 08/05/2025 13:39:18 08/04/20 25 08/04/2025 CMP(C OMPRE HENSI VE METAB OLIC PANEL ) blood urea nitrogen 10 mg/dL 7-25 Not Available [facility] (Lab) [address] [facility], [place], [address], 08/05/2025 13:39:18 08/04/20 25 08/04/2025 CMP(C OMPRE HENSI VE METAB OLIC PANEL ) creatinine 0.41 mg/dL 0.60-1 .30 low Not Available [facility] (Lab) [address] [facility], [place], [address], 08/05/2025 13:39:18 08/04/20 25 08/04/2025 CMP(C OMPRE HENSI VE METAB OLIC PANEL ) egfrcr (CKD-epi 2020) >90 mL/mi n/1.7 3_m2 >=60 Not Available [facility] (Lab) [address] [facility], [place], [address], 08/05/2025 13:39:18 08/04/20 25 08/04/2025 CMP(C OMPRE HENSI VE METAB OLIC PANEL ) calcium 8.9 mg/dL 8.3-10 .5 Not Available [facility] (Lab) [address] [facility], [place], [address], 08/05/2025 13:39:18 08/04/20 25 08/04/2025 CMP(C OMPRE HENSI VE METAB OLIC PANEL ) glucose 116 mg/dL 70-100 high Not Available [facility] (Lab) [address] [facility], [place], [address], 08/05/2025 13:39:18 08/04/20 25 08/04/2025 CMP(C OMPRE HENSI VE METAB OLIC PANEL ) protein, total 6.1 g/dL 6.4-8. 3 low Not Available [facility] (Lab) [address] [facility], [place], [address], 08/05/2025 13:39:18 08/04/20 25 08/04/2025 CMP(C OMPRE HENSI VE METAB OLIC PANEL ) albumin 3.5 g/dL 3.5-5. 0 Not Available [facility] (Lab) [address] [facility], [place], [address], 08/05/2025 13:39:18 08/04/20 25 08/04/2025 CMP(C OMPRE HENSI VE METAB OLIC PANEL ) ALT 11 units /L 9-43 Not Available [facility] (Lab) [address] [facility], [place], [address], 08/05/2025 13:39:18 08/04/20 25 08/04/2025 CMP(C OMPRE HENSI VE METAB OLIC PANEL ) alkaline phosphatase 98 units /L 34-104 Not Available [facility] (Lab) [address] [facility], [place], [address], 08/05/2025 13:39:18 08/04/20 25 08/04/2025 CMP(C OMPRE HENSI VE METAB OLIC PANEL ) AST 15 units /L 13-39 Not Available [facility] (Lab) [address] [facility], [place], [address], 08/05/2025 13:39:18 08/04/20 25 08/04/2025 CMP(C OMPRE HENSI VE METAB OLIC PANEL ) bilirubin, total 0.3 mg/dL 0.2-1. 2 Not Available [facility] (Lab) [address] [facility], [place], [address], 08/05/2025 13:39:18 08/04/20 25 08/04/2025 BILE ACIDS , TOTAL bile acids, total 4 umol/ L 0-10 Test Perfo rmed by: uLke hern[facility]dez rn [facility] [address] [address] Not Available [facility] (Lab) [address] [facility], [place], [address], 08/05/2025 13:39:19 03/02/20 25 03/02/2025 US, obste tric, nucha l trans lucen cy No observ ation record ed. [email or web address] [address], [place], [address], 03/02/2025 13:35:30 03/02/20 25 03/02/2025 US, obste tric, nucha l trans lucen cy No observ ation record ed. [email or web address] [address], [place], [address], 03/03/2025 14:08:39 03/08/20 25 03/08/2025 US, obste tric, 1st trime ster No observ ation record ed. [email or web address] [address], [place], [address], 03/08/2025 12:22:22 03/08/20 25 03/08/2025 US, obste tric, 1st trime ster No observ ation record ed. [email or web address] [address], [place], [address], 03/10/2025 15:03:13 04/01/20 25 03/24/2025 qamar r monit or No observ ation record ed. [address], [address], 04/08/2025 12:36:45 04/01/20 25 03/22/2025 qamar r monit or No observ ation record ed. [address] (Pulmonary) [address] [place] [address] [place] [address], [address], 04/06/2025 08:59:34 04/20/20 25 04/20/2025 US, obstangela tric, limit ed No observ ation record ed. [email or web address] [address], [place], [address], 04/20/2025 17:39:30 04/20/20 25 04/20/2025 US, obste tric, follo w-up No observ ation record ed. [email or web address] [address] [place] [address] [address], [place], [address], 04/23/2025 08:32:54 04/28/20 25 04/28/2025 US, obste tric, 2nd or 3rd trime ster No observ ation record ed. [email or web address] [address], [place], [address], 04/28/2025 17:48:42 04/28/20 25 04/28/2025 US, obste tric, 2nd or 3rd trime ster No observ ation record ed. [email or web address] [address], [place], [address], 05/04/2025 22:16:11 05/07/20 25 05/07/2025 non-s tress test No observ ation record ed. [address], [place], [address], 05/28/2025 13:33:54 05/21/20 25 05/21/2025 CT, head + brain , w/o contr ast No observ ation record ed. [place] [id number] [facility] [address], [place], [address], 05/24/2025 13:48:57 05/28/20 25 05/28/2025 US, obste tric, follo w-up No observ ation record ed. [email or web address] [address], [place], [address], 05/28/2025 17:32:34 05/28/20 25 05/28/2025 US, obste tric, follo w-up No observ ation record ed. [email or web address] [address], [place], [address], 06/01/2025 15:13:13 06/08/20 25 06/07/2025 US, obste tric, follo w-up No observ ation record ed. [email or web address] [facility] [address], [place], [address], 06/15/2025 10:53:46 07/07/20 25 07/07/2025 US, obste tric, follo w-up No observ ation record ed. [email or web address] [address], [place], [address], 07/07/2025 13:18:01 07/07/20 25 07/07/2025 US, obste tric, follo w-up No observ ation record ed. [email or web address] [address], [place], [address], 07/07/2025 11:29:37 08/04/20 25 08/04/2025 US, obste tric, follo w-up No observ ation record ed. [email or web address] [address], [place], [address], 08/04/2025 15:08:50 08/04/20 25 08/04/2025 US, obste tric, follo w-up No observ ation record ed. [address], [place], [address], 08/06/2025 10:41:50 08/11/20 25 08/11/2025 non-s tress test No observ ation record ed. [email or web address] [address], [place], [address], 08/11/2025 17:37:52 08/11/20 non-s tress test No observ ation record ed. [email or web address] [address], [place], [address], 08/11/2025 17:38:11 08/15/20 25 08/15/2025 non-s tress test No observ ation record ed. [place] [id number], [place], [address], 08/21/2025 10:18:57 08/15/2008/15/2025 US, obste tric, bioph ysica l profi le No observ ation record ed. [address], [place], [address], 08/17/2025 10:50:53 08/18/2008/18/2025 US, obste tric, bioph ysica l profi le + non-s tress test No observ ation record ed. [email or web address] [address], [place], [address], 08/18/2025 10:21:39 08/18/2008/18/2025 US, obste tric, bioph ysica l profi le + non-s tress test No observ ation record ed. [email or web address] [address], [place], [address], 08/18/2025 10:35:44 08/18/2008/18/2025 non-s tress test No observ ation record ed. [email or web address] [address], [place], [address], 08/18/2025 17:34:03 08/18/20 non-s tress test No observ ation record ed. [address], [place], [address], 08/18/2025 16:06:09 08/25/2008/25/2025 US, obste tric, bioph ysica l profi le + non-s tress test No observ ation record ed. [email or web address] [address], [place], [address], 08/25/2025 18:52:06 08/25/2008/25/2025 US, obste tric, follo w-up No observ ation record ed. [email or web address] Esha [address], [place], [address], 08/25/2025 15:47:28 08/25/2008/25/2025 non-s tress test No observ ation record ed. [address], [place], [address], 08/25/2025 18:12:15 08/25/20 non-s tress test No observ ation record ed. [address], [place], [address], 08/25/2025 17:21:19 08/30/20 25 08/30/2025 imagi ng/di agnos tic resul t No observ ation record ed. [address] [facility], [place], [address], 08/31/2025 18:17:32 09/01/20 25 09/01/2025 non-s tress test No observ ation record ed. [address] [facility], [place], [address], 09/13/2025 11:32:22 09/01/2009/01/2025 US, obste tric No observ ation record ed. [address], [place], [address], 09/02/2025 15:56:01 09/01/20 25 09/01/2025 non-s tress test No observ ation record ed. [address], [place], [address], 09/02/2025 14:32:38 Result Notes None recorded. Problems Name Problem SNOMED Code Status Onset Date Resolution Date Notes Provider Name and Address Organization Details Recorded Time Hypereme sis 133982913 Completed phenerga n now prn Asia ramos [facility] 2 16:43:51 Anxiety in pregnanc y [id number] Completed will continue to monitor Asia arias rachel [facility] 2 16:43:51 Past pregnanc y history of gestatio nal diabetes mellitus [id number] Completed Early 1 hr GTT @ 20wks 11/03 APPT Asia arias [facility] 2 16:43:51 Spinal muscular atrophy [id number] Completed Carrier - Not in contact with FOB. Asia Baileyrafakandyganeshpetrona arias rachel [facility] 2 16:43:51 Anxiety [id number] Completed prozac Karina ramos [facility] 4 11:00:46 Nausea [id number] Completed d/c zofran pump 11/08 per pt request Karnia ramos [facility] 4 11:00:46 Postpart um hemorrha ge [id number] Completed 2017 with d&c Karina ramos [facility] 4 11:00:46 Normal pregnanc y in multigra jessy [id number] Completed 201907/05/2021 Encounte r for supervis ion of other normal pregnanc y, 3rd trimeste r;Record ed Elsewher e: No Locat ion: Jaelyn castillo [facility] S ource: EHR Asset Card Clerk yvrose: N Practi ce ID: [id number] Gigi lable Time: 10:45:00 AM Karina ramos [facility] 1 10:15:27 Gestatio n period, 37 weeks [id number] Completed 201907/05/2021 37 weeks gestatio n of pregnanc y;Record ed Elsewher e: No Locat ion: [facility] S ource: EHR Asset Card Clerk yvrose: N Natalyati ce ID: [id number] Gigi lable Time: 09:00:00 AM Karina ramos, [facility], [facility] 10:15:[address] Concept Completed 201907/05/2021 Matern care for abnlt fetl hrt rate or rhym, 3rd tri, unsp;Rec orded Elsewher e: No Locat ion: [facility] S ource: EHR Asset Card Clerk yvrose: N Natalyati ce ID: [id number] Gigi lable Time: 08:45:00 AM Karina ramos, [facility] 10:15:29 Gestatio nal diabetes mellitus [id number] Completed 201907/05/2021 Gestatio nal diabetes mellitus in pregnanc y, diet controll ed;Recor ded Elsewher e: No Locat ion: [facility] S ource: EHR Asset Card Clerk yvrose: N Natalyati ce ID: [id number] Gigi lable Time: 11:45:00 AM Karina ramos, [facility] 10:15:25 Gestatio n period, 38 weeks [id number] Completed 201907/05/2021 38 weeks gestatio n of pregnanc y;Record ed Elsewher e: No Locat ion: [facility] S ource: EHR Asset Card Clerk yvrose: N Natalyati ce ID: [id number] Gigi lable Time: 11:30:00 AM Karina ramos [facility] 10:15:13 Amenorrh ea 03991168 Completed 202007/10/2021 Tammi ramos [facility] 13:08:35 Pregnanc y 61635783 Completed 202003/29/2022 Karina Burroughs null, [facility] 4 11:00:49 Pregnanc y 22722739 Completed 202304/22/2024 Karinasofia Burroughs null, [facility] 4 11:00:49 Headache 45284344 Active 2023 Karina Burroughs null, [facility] 5 16:19:28 Pregnanc y 64981421 Active 2023 Karina Heike null, [facility] 5 16:19:28 Uncompli cated moderate persiste nt asthma 239430982 Active 2024 albutero l prn Shawn Bradley MD [address], [place], [address], [facility] 5 13:08:36 Anxiety 82895819 Active 2024 sertrali ne started 03/02/25 changed to prozac 10 on Shawn Bradley MD [address], [place], [address], [facility] 5 17:05:48 Nausea and vomiting 82287645 Active 2024 Shawn Bradley MD [address], [place], [address], [facility] 5 13:20:27 Placenta circumva llata 9120741 Active 2024 32wk growth Ryann Castro null, [facility] 5 09:44:35 Frequent headache 588526288 Active 2024 transpor t to [facility] 05/21, discharg e 05/23 MFM referral faxed [...] 2-3 times a week. Ryann Castro rachel [facility] 5 10:55:26 Abnormal placenta affectin g manageme nt of mother 29998733 Active 2024 MCI serial growth us Ryann Castro rachel [facility] 10:46:25 Iron deficien cy anemia 54846104 Active 2024 [facility] tx venofer 200mg x1 HGB 10.6 Ryann Matthew ramos [facility] 5 15:21:25 Gestatio nal diabetes mellitus 25558431 Active 2024 checking bs QID - ruled in GDM Referral faxed to [facility] 07/07 Ryann Castro rachel [facility] 5 14:36:52 Notes:Order faxed to [facility] access 08/10 for PICC line, and home health already caring for pt. Vladimir RN at [phone] Problem Notes None recorded. Procedures Surgical History Date Name Laterality Status Provider Name and Address Organization Details Recorded Time 025 SALPINGECTOMY, LAPAROSCOPIC (SURG) completed Not Available [facility] 09/06/2025 11:19:17 025 Date of Last Pap Smear completed Karina Burroughs [facility] 01/28/2025 11:19:42 024 Nexplanon Removal completed Shawn Bradley MD [address], [place], [address], [place] [facility] 08/05/2024 15:09:58 024 Control Implant Insertion completed Anju Mcnamara CNM [address], [place], [address], [facility] 05/08/2024 17:59:34 024 cholecystectomy completed Karina Burroughs [facility] 03/31/2025 09:18:57 018 Dilation and Curettage completed Karina Burroughs [facility] 07/05/2021 10:17:50 Imaging Results None recorded. Procedure Notes None recorded. Medical Equipment None Reported. Allergies Allergen ID Allergen Name Allergen Category Reaction Reaction Severity Criticality Documentation Date Start Date Code Code System Note Provider Name and Address Organization Details Recorded Time 03349 terbutali ne medicatio n anaphylax is Not available Not available 01/27/20252021 29874 RxNorm Karina ramos, [facility] 16:19:27 14501 amoxicill in medicatio n Not available Not available Not available 09/10/2025 723 RxNorm Not Available [employer] External [employer] - prod 16:39:37 08914 terbinafi ne medicatio n anaphylax is Not available [facility] 09/10/20252024 67886 RxNorm Not Available [employer] - prod 16:40:54 Medications Name [...] Deleon e: Yes Loca tion: Jaelyn castillo [facility] M odify By: [email or web address] Encounte r DateTime [...] n (supplie d by office) insert lot [id number] Exp 01/2026 Not Available Not Available Not Available 28 mg iron-800 mcg tablet 07/05 completed Prescrib ed Jeriher e: Yes Loca tion: [facility] odify By: prabhjot barrera DateTime : 01/14/20 10:45:00 AM Not Available Not Available Not Available lidocaine 5 % topical ointment APPLY OINTMENT EXTERNAL LY TO RIBS THREE TIMES DAILY NEEDED 01/14 completed Not Available Not Available Not Available 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 08/18/2025 10:57:44 Date Recorded Body height Body weight Systolic And Diastolic Provider Name and Address Organization Details Last Updated DateTime 08/18/2025 162.56 cm 70679.9960 8 g 116/77 mm[Hg] Emma Dykes [facility] 08/18/2025 16:03:36 Social History Question Answer Notes LastModified by Organizat ion Details LastModified Time Tobacco Smoking Status Former Smoker Karina ramos, [facility] 07/05/2021 09:06:21 If You Are , What Was Your Level Of Alcohol Consumption Prior To ? Occasional Information not available 03/31/2025 Are You Blind Or Do You Have Difficulty Seeing? No [email or web address] Information not available 07/05/2021 What Is Your Level Of Caffeine Consumption? Heavy [email or web address] Information not available 07/05/2021 In The 14 Days Before Symptom Onset, Have You Had Close Contact With A Laboratory-confir med COVID-19 While That Case Was Ill? No [email or web address] Information not available 07/05/2021 In The 14 Days Before Symptom Onset, Have You Had Close Contact With A Person Who Is Under Investigation For COVID-19 While That Person Was Ill? No Information not available 07/05/2021 Have You Been To An Area Known To Be High Risk For COVID-19? No [email or web address] Information not available 07/05/2021 Are You Deaf Or Do You Have Serious Difficulty Hearing? No [email or web address] Information not available 07/05/2021 What Type Of Diet Are You Following? REGULAR [email or web address] Information not available 07/05/2021 Which Illicit Or Recreational Drugs Have You Used? Marijuana [email or web address] Information not available 07/05/2021 Have You Ever Been Counseled For Unhealthy Alcohol Use? No [email or web address] Information not available 07/05/2021 Do You Use Your Seat Belt Or Car Seat Routinely? Yes [email or web address] Information not available 07/05/2021 Do You Have Smoke And Carbon Monoxide Detectors In Your Home? Yes [email or web address] Information not available 07/05/2021 Do You Use Sunscreen Routinely? Yes [email or web address] Information not available 07/05/2021 Has Tobacco Cessation Counseling Been Provided? No [email or web address] Information not available 07/05/2021 Have You Used IV Drugs? No [email or web address] Information not available 07/05/2021 Do You Have Difficulty Walking Or Climbing Stairs? No [email or web address] Information not available 12/06/2021 Sex: Unknown Functional Status Question Answer Note LastModified by Organizat ion Details LastModified Time Do you use any illicit or recreational drugs? Yes [email or web address] Information not available 07/05/2021 Do you or have you ever used any other forms of tobacco or nicotine? Yes [email or web address] Information not available 07/05/2021 What is your level of alcohol consumption? None Information not available 03/31/2025 Do you or have you ever used smokeless tobacco? Never used smokeless tobacco [email or web address] Information not available 07/05/2021 Are you able to walk independently without assistance or assistive devices? YESWOREST [email or web address] Information not available 07/05/2021 Are you able to care for yourself independently? Yes [email or web address] Information not available 12/06/2021 Do you have difficulty dressing, bathing, grooming, or toileting? No [email or web address] Information not available 12/06/2021 Do you or have you ever used e-cigarettes or vape? Current user of electronic cigarettes Information not available 07/05/2021 What is your exercise level? Occasional [email or web address] Information not available 07/05/2021 Mental Status Question Answer Note LastModified by Organization D etails LastModified Time Do you feel stressed (tense, restless, nervous, or anxious, or unable to sleep at night)? [id number] [email or web address] Information not available 07/05/2021 Family History Relationship Description Onset Age of this Age Resolved Age Notes LastModified by Organization Details LastModified Time Father No current problems or disability [email or web address] Not available 05/2021 09:06:31 Mother No current problems or disability [email or web address] Not available 05/2021 09:06:31 Medical History Condition Response Allergies (Food, seasonal, environmental ) N Other N Breast Cancer N Blood Transfusion N Drug/Latex Allergies/Reactions N Dermatologic Disorders N Lung Disease Y [...] ICD10 Code Diagnosis IMO Codes Diagnosis Note [id number] Anju Mcnamara CNM [facility] [address] [address] 07/21/2025 09:28:54 07/21/2025 12:36:06 Pain in pelvis 24365057 R10.2 156680 Gestation period, 32 weeks 6163981 Z3A.32 1541019 [id number] Shawn Bradley MD [facility] [address],[place] [address] 08/04/2025 14:02:59 08/04/2025 15:06:33 Gestational diabetes mellitus 92462318 O24.410 O43.103 O43.113 Z3A.34 83992859 [id number] [facility] [address],[place] [address] 08/04/2025 14:21:57 08/04/2025 15:26:03 Gestation period, 34 weeks 27060512 Z3A.34 7697404 Pruritic d isorder of skin 8192062035 L29.9 35714 plan labs today, ursadiol BID [id number] [facility] [address] [place] [address] 08/11/2025 14:51:38 08/11/2025 17:16:44 Gestational diabetes mellitus 81664111 O24.414 86489987 [id number] [facility] [address] [place] [address] 08/11/2025 16:25:59 08/11/2025 17:46:32 Gestational diabetes mellitus 37336018 O24.414 36093234 [id number] Shawn Bradley MD [facility] [address] [place] [address] 08/18/2025 09:40:51 08/18/2025 10:15:47 Gestational diabetes mellitus 27860945 O24.414 Z3A.36 65247185 [id number] Anju Mcnamara CNM [facility] [address] [place] [address] 08/18/2025 09:41:06 08/18/2025 11:24:04 Gestation period, 36 weeks 70056756 Z3A.36 2367293 cont pnv [id number] [facility] [address] [place] [address] 08/18/2025 09:41:16 08/18/2025 16:17:31 Gestational diabetes mellitus class A2 08092344 O24.414 [id number] Health Concerns Section Related Observation LastModified by Organization Detai ls LastModified Time None Recorded Concern Status LastModified by Organization Details LastModified Time None Recorded Payers Encounter Date Sequence Insurance Name Policy Number Policy Roberts Covered Member ID Roberts Member ID Guarantor Name 08/18/2025 1 [facility] (MEDICAID HMO) [id number] Yuni Mejia [id number] Yuni Mejia Notes Date Note Type Note Provider Name and Address Organization Details Recorded Time 08/18/2025 text/html Generic HPI TemplateReported by Patient Anju Mcnamara CNM [address], [place], [address], [facility] 08/18/2025 11:23:41 OBGyn Episode Ob Episode Information Episode Created Date Number of Fetuses Patient Bloodtype Patient rh Status Prepregnancy Weight lbs Domestic Partner Domestic Partner Phone Father Name Special Needs Nanny Status 03/02/20 25 1 B Positive 164 OPEN Fetus Data First Name Last Name Admitted to NICU Weight (g) Sex Living Outcome Pediatric Complications Fetus ID Race Codes Race Delivery Type [id number] Problems Problem Notes SDH form completed 5GI consult Tachycardia Holter monitor 72 order- pt sent back on 03-27-25 Cardiology referral faxed per Dr Martínez office calling pt 04/21 to schedule consult scheduled 05/11 11:15AM Problem Name Start Date End Date Resolution Snomed Code Not e Uncomplicated moderate persistent asthma 03/02/2025 558075003 albuterol prn Abnormal placenta affecting management of mother 05/04/2025 38617293 MCI serial grow th us Iron deficiency anemia 05/25/2025 13723736 [facility] tx [place] 200mg x1 HGB 10.6 Nausea and vomiting 03/02/2025 03462290 Anxiety 03/02/2025 11935352 sertralin e started 03/02/25 changed to prozac 10 on Gestational diabetes mellitus 07/08/2025 79610066 checking bs QID - ruled in GDM Referral faxed to [facility] 07/07 Frequent headache 05/03/2025 [id number] [place] to [facility] 05/21, discharge 05/23 MF referral faxed 05/24 SS Neurology consult pending per KAJAL Pittman [facility]- Neuro [facility] unable to see pt due to insurance 05/25[facility] 07/05/25 Level US & Consult (see [facility] consult zayas recommendations ) regimen prn Imitrex 50mg for acute migraine, vitamin B2 (Riboflavin) 400mg, Coenzyme q10 300mg and magnesium oxide 200 to 600mg daily. minimize use of Excedrin or Tylenol to no more than 2-3 times a week. 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/2025 0874808 32wk growth us Jun Calculation Initial Jun [...] Weight in lbs Pre/Post Dialysis Refused Weight 158.823087007488 BP Diastolic BP Location Tested BP Systolic [...] Weight in lbs Pre/Post Dialysis Refused Weight 158.106691289756 BP Diastolic BP Location Tested BP Systolic [...] Weight in lbs Pre/Post Dialysis Refused Weight 162.456158053845 BP Diastolic BP Location Tested BP Systolic BP Type 78 123 Fetus Heart Rate Present A 148 Fetus Movement A Yes Comments Patient is having having ronny n, cramping and vaginal discharge. went to ed exam done cultures and rx sent, ?FM, await occasional babysitter results rfilled zofran, precautions and education f/u [...] Type Weight in lbs Pre/Post Dialysis Refused 168.709108032143 BP Diastolic BP Location Tested BP Systolic [...] Type Weight in lbs Pre/Post Dialysis Refused 169.421988638140 BP Diastolic BP Location Tested BP Systolic [...] Weight in lbs Pre/Post Dialysis Refused Weight 175.901794984798 BP Diastolic BP Location Tested BP Systolic [...] Weight in lbs Pre/Post Dialysis Refused Weight 182.657868435194 BP Diastolic BP Location Tested BP Systolic [...] Weight in lbs Pre/Post Dialysis Refused Weight 181.062451220075 BP Diastolic BP Location Tested BP Systolic BP Type 73 L arm 131 sitting Fetus Heart Rate Present Fetus Movement A Yes Comments viral URI testied neg at urg ent care, nausea resolved, efw 68%, +FM plan education and precautions f/u 2 weeks diagnosed GDM, plan teleservices representative, gave list reviewed protein vs carb Flowsheet Date 07/21/2025 Gibson Score Blood Edema Fundus Height Fundus Units Glucose Ketones Leukocytes Nitrite Labor Signs Protein Cervic Dilation Cervic Effacement Cervic Station Type Weight in lbs Pre/Post Dialysis Refused Weight 181.100813647707 BP Diastolic BP Location Tested BP Systolic BP Type 78 L arm 127 sitting Fetus Heart Rate Present A 150 Fetus Movement A Yes Comments rpt urine culture +FM review ed blood sugars, meets with [employer]eleservices representative today, precautions and education f/u 2 weeks [...] Weight in lbs Pre/Post Dialysis Refused Weight 181.123962274123 BP Diastolic BP Location Tested BP Systolic [...] Weight in lbs Pre/Post Dialysis Refused Weight 183.116098009028 BP Diastolic BP Location Tested BP Systolic [...] Type Weight in lbs Pre/Post Dialysis Refused 184.681057985148 BP Diastolic BP Location Tested BP Systolic [...] Type Weight in lbs Pre/Post Dialysis Refused 184.733487559961 BP Diastolic BP Location Tested BP Systolic [...] Type Weight in lbs Pre/Post Dialysis Refused 184.962273225221 BP Diastolic BP Location Tested BP Systolic [...] Weight in lbs Pre/Post Dialysis Refused Weight 184.654640890069 BP Diastolic BP Location Tested BP Systolic [...]
--- OUTSIDE RECORDS SUMMARY | 2025-09-14 00:22 | XMS_ITS | Continuity of Care Document ---
Author Organization [facility], [facility] Address [address] [place] [address] Care Team Providers Care Upstairs Maid Name Role Phone CARLOS ESTRADA Primary Care [...] Available [facility] [address], [place], [address], 03/06/2025 03:58:26 03/06/20 25 03/06/2025 [UNIT Y] ANEUP LOIDY NIPT sex chromosome aneuploidy NOT DETECT ED normal Not Available [facility] [address], [place], [address], 03/06/2025 03:58:26 03/06/20 25 03/06/2025 [UNIT Y] ANEUP LOIDY NIPT monosomy X LOW RISK <1 in 10,000 normal Not Available [facility] [address], [place], [address], 03/06/2025 03:58:26 03/06/20 25 03/06/2025 [UNIT Y] ANEUP LOIDY NIPT trisomy 13 LOW RISK <1 in 10,000 normal Not Available [facility] [address], [place], [address], 03/06/2025 03:58:26 03/06/20 25 03/06/2025 [UNIT Y] ANEUP LOIDY NIPT trisomy 18 LOW RISK <1 in 10,000 normal Not Available [facility] [address], [place], [address], 03/06/2025 03:58:26 03/06/20 25 03/06/2025 [UNIT Y] ANEUP LOIDY NIPT trisomy 21 LOW RISK <1 in 10,000 normal Not Available [facility] [address], [place], [address], 03/06/2025 03:58:26 03/06/20 25 03/06/2025 [UNIT Y] ANEUP LOIDY NIPT sex FEMALE normal Not Available [facility] [address], [place], [address], 03/06/2025 03:58:26 03/06/20 25 03/06/2025 [UNIT Y] ANEUP LOIDY NIPT gestation SINGLE TON normal Not Available [facility] [address], [place], [address], 03/06/2025 03:58:26 03/06/20 25 03/06/2025 [UNIT Y] ANEUP LOIDY NIPT for detailed report, see pdf See PDF normal Not Available [facility] [address], [place], [address], 03/06/2025 03:58:26 03/02/20 25 03/02/2025 CULTU RE: URINE result report SEE RESULT S BELOW Test: Cultu re: Urine Speci men Sourc e: Urine - Clean Catch Speci men Type: Urine Speci men Date: 025 1455 Resul t Date: 025 2138 Resul t Statu s: Final resul t Abnor mal: No Resul ting Lab: [facility] [address] [facility] [address] Tel: CULTU RE ----- ----- ----- --- No growt h in 1 day (dete ction level of 10,00 0 colon ies / ml.) Not Available [facility] (Lab) [address], [place], [address], 03/03/2025 22:42:27 03/12/2003/12/2025 CULTU RE: URINE result report SEE RESULT S BELOW Test: Cultu re: Urine Speci men Sourc e: Urine - Clean Catch Speci men Type: Urine Speci men Date: 2024 1600 Resul t Date: 2024 0610 Resul t Statu s: Final resul t Abnor mal: No Resul ting Lab: [facility] [address] [facility] [address] Tel: CULTU RE ----- ----- ----- --- No growt h in 1 day (dete ction level of 10,00 0 colon ies / ml.) Not Available [facility] (Lab) [address], [place], [address], 03/14/2025 07:15:03 03/12/2003/12/2025 urina lysis , dipst ick Leukocytes ++ Not Available [facility] [address], [place], [address], 03/12/2025 16:45:06 03/12/20 25 03/12/2025 urina lysis , dipst ick Protein + Not Available [facility] [address], [place], [address], 03/12/2025 16:45:06 03/12/20 03/12/2025 urina lysis , dipst ick pH 5 Not Available [facility] [address], [place], [address], 03/12/2025 16:45:06 03/12/20 25 03/12/2025 urina lysis , dipst ick Blood trace Not Available [facility] [address], [place], [address], 03/12/2025 16:45:06 03/12/20 25 03/12/2025 urina lysis , dipst ick Specific Hessel 1.015 Not Available [facility] [address], [place], [address], 03/12/2025 16:45:06 03/12/20 25 03/12/2025 urina lysis , dipst ick Ketone +++ Not Available [facility] [address], [place], [address], 03/12/2025 16:45:06 03/31/20 25 03/31/2025 TSH, REFLE X FREE T4 TSH 0.42 uIU/m L 0.30-5 .33 Not Available [facility] (Lab) [address], [place], [address], 04/01/2025 03:05:12 03/31/20 25 03/31/2025 CULTU RE: URINE result report SEE RESULT S BELOW Test: Cultu re: Urine Speci men Sourc e: Urine Voide d Speci men Type: Urine Speci men Date: 1710 Resul t Date: 6 Resul t Statu s: Final resul t Abnor mal: No Resul ting Lab: [facility] [address] [facility] [address] Tel: CULTU RE ----- ----- ----- --- Cultu re resul t (>=3 organ isms prese nt) indic ates possi ble conta minat ion. Repea t cultu re if sympt oms indic ate. Not Available [facility] (Lab) [address], [place], [address], 04/01/2025 23:59:19 03/31/20 25 03/31/2025 urina lysis , dipst ick Leukocytes +1 Not Available [facility] [address], [place], [address], 03/31/2025 09:23:13 03/31/20 25 03/31/2025 urina lysis , dipst ick Nitrite normal Not Available [facility] [address], [place], [address], 03/31/2025 09:23:13 03/31/20 25 03/31/2025 urina lysis , dipst ick Urobilinogen normal Not Available [facility] david [address], [place], [address], 03/31/2025 09:23:13 03/31/20 25 03/31/2025 urina lysis , dipst ick Protein trace Not Available [facility] [address], [place], [address], 03/31/2025 09:23:13 03/31/20 25 03/31/2025 urina lysis , dipst ick pH 5 Not Available [facility] [address], [place], [address], 03/31/2025 09:23:13 03/31/20 25 03/31/2025 urina lysis , dipst ick Specific Hessel 1.020 Not Available [facility] [address], [place], [address], 03/31/2025 09:23:13 03/31/20 25 03/31/2025 urina lysis , dipst ick Ketone normal Not Available [facility] [address], [place], [address], 03/31/2025 09:23:13 03/31/20 25 03/31/2025 urina lysis , dipst ick Bilirubin normal Not Available [facility] anna [address], [place], [address], 03/31/2025 09:23:13 03/31/20 25 03/31/2025 urina lysis , dipst ick Glucose normal Not Available [facility] [address], [place], [address], 03/31/2025 09:23:13 03/31/20 25 03/31/2025 urina lysis , dipst ick Appearance normal Not Available [facility] domingo [address], [place], [address], 03/31/2025 09:23:13 03/31/20 25 03/31/2025 urina lysis , dipst ick Color normal Not Available [facility] [address], [place], [address], 03/31/2025 09:23:13 04/01/20 25 04/01/2025 WOMEN 'S HEALT H SWAB PLUS, DENIS bacterial vaginosis (bv), tma Negati ve negati ve Not Available [facility] (Lab) [address] [place], [address], 04/02/2025 14:08:45 04/01/20 25 04/01/2025 WOMEN 'S HEALT H SWAB PLUS, DENIS mekhi species, tma Negati ve negati ve Not Available [facility] (Lab) [address] [place] [place], [address], 04/02/2025 14:08:45 04/01/20 25 04/01/2025 WOMEN 'S HEALT H SWAB PLUS, DENIS mekhi glabrata, tma Negati ve negati ve Not Available [facility] (Lab) [address] [place], [address], 04/02/2025 14:08:45 04/01/2004/01/2025 WOMEN 'S HEALT H SWAB PLUS, DENIS trichomonas vaginalis, tma Negati ve negati ve Not Available [facility] (Lab) [address], [place], [address], 04/02/2025 14:08:45 04/01/2004/01/2025 [facility] SW[facility], DENIS chlamydia trachomatis, PCR Negati ve negati ve Not Available [facility] (Lab) [address] [place], [address], 04/02/2025 14:08:45 04/01/2004/01/2025 WOMEN 'S HEALT H [...] ded in this panel . Not Available [facility] (Lab) [address], [place], [address], 04/02/2025 14:08:45 04/22/2004/22/2025 CULTU RE: URINE result report SEE RESULT S BELOW Test: Cultu re: Urine Speci men Sourc e: Urine Voide d Speci men Type: Urine Speci men Date: 2024 1314 Resul t Date: 2024 0322 Resul t Statu s: Final resul t Abnor mal: No Resul ting Lab: [facility] [address] [facility] [address] Tel: CULTU RE ----- ----- ----- --- No growt h in 1 day (dete ction level of 10,00 0 colon ies / ml.) Not Available [facility] (Lab) [address], [place], [address], 04/24/2025 04:28:01 04/22/20 25 04/22/2025 urina lysis , dipst ick Leukocytes + Not Available [facility] domingo [address], [place], [address], 04/22/2025 10:01:51 04/22/20 25 04/22/2025 urina lysis , dipst ick Protein + Not Available [facility] [address], [place], [address], 04/22/2025 10:01:51 04/22/20 25 04/22/2025 urina lysis , dipst ick pH 8 Not Available [facility] [address], [place], [address], 04/22/2025 10:01:51 04/22/20 25 04/22/2025 urina lysis , dipst ick Blood + Not Available [facility] [address], [place], [address], 04/22/2025 10:01:51 04/22/20 25 04/22/2025 urina lysis , dipst ick Specific Hessel 1.010 Not Available [facility] [address], [place], [address], 04/22/2025 10:01:51 04/22/2004/22/2025 urina lysis , dipst ick Ketone + Not Available [facility] [address], [place], [address], 04/22/2025 10:01:51 06/23/2006/23/2025 HEMAT OCRIT (HCT) HCT 35.6 % (based on docume nted legal sex) 34.0-4 5.0 Not Available [facility] (Lab) [address], [place], [address], 06/24/2025 11:45:32 06/23/20 25 06/23/2025 HEMOG LOBIN (HGB) HGB 11.1 g/dL (based on docume nted legal sex) 11.6-1 5.4 low Not Available [facility] (Lab) [address], [place], [address], 06/24/2025 11:45:32 06/23/20 25 06/23/2025 GTT - GESTA ROLAND L JOSE N, ACOG OB glucose, 1 hour screen 180 mg/dL 70-135 high Not Available [facility] (Lab) [address] [place], [address], 06/24/2025 11:45:33 06/23/20 25 06/23/2025 HIV 1/2 ANTIG EN/AN TIBOD Y, REFLE X CONFI RMATI ON HIV antigen/anti body Nonrea ctive nonrea ctive HIV-1 antig en and HIV-1 /HIV- 2 antib odies were not detec greg. No labor atory evide nce of HIV infec tion. Not Available [facility] (Lab) [address], [place], [address], 06/24/2025 11:45:33 08/06/23/2025 RPR SCREE N, REFLE X TITER /CONF IRMAT ION RPR qualitative Nonrea ctive nonrea ctive Not Available [facility] (Lab) [address], [place], [address], 06/24/2025 11:45:34 03/02/20 25 03/02/2025 US, obste tric, nucha l trans lucen cy No observ ation record ed. [email or web address] [facility] [address], [place], [address], 03/02/2025 13:35:30 03/02/20 25 03/02/2025 US, obste tric, nucha l trans lucen cy No observ ation record ed. [email or web address] [address] [address], [place], [address], 03/03/2025 14:08:39 03/08/20 25 03/08/2025 US, obste tric, 1st trime ster No observ ation record ed. [email or web address] [facility] [address], [place], [address], 03/08/2025 12:22:22 03/08/20 25 03/08/2025 US, obste tric, 1st trime ster No observ ation record ed. [email or web address] Esha [address], [place], [address], 03/10/2025 15:03:13 04/01/20 25 03/24/2025 qamar r monit or No observ ation record ed. [address] [facility] [address] [place] [address], [address], 04/08/2025 12:36:45 04/01/20 25 03/22/2025 qamar r monit or No observ ation record ed. [address] (Pulmonary) [address] [facility] [address] [place] [address], [address], 04/06/2025 08:59:34 04/20/20 25 04/20/2025 US, obste tric, limit ed No observ ation record ed. [email or web address] [facility] [address], [place], [address], 04/20/2025 17:39:30 04/20/20 25 04/20/2025 US, obste tric, follo w-up No observ ation record ed. [email or web address] [facility] [address], [place], [address], 04/23/2025 08:32:54 04/28/20 25 04/28/2025 US, obste tric, 2nd or 3rd trime ster No observ ation record ed. [email or web address] [facility] [address], [place], [address], 04/28/2025 17:48:42 04/28/20 25 04/28/2025 US, obste tric, 2nd or 3rd trime ster No observ ation record ed. [email or web address] [facility] [address], [place], [address], 05/04/2025 22:16:11 05/07/20 25 05/07/2025 non-s tress test No observ ation record ed. [address] [facility] [address], [place], [address], 05/28/2025 13:33:54 05/21/20 25 05/21/2025 CT, head + brain , w/o contr ast No observ ation record ed. [address] [facility] [address], [place], [address], 05/24/2025 13:48:57 05/28/20 25 05/28/2025 US, obste tric, follo w-up No observ ation record ed. [email or web address] [address], [place], [address], 05/28/2025 17:32:34 05/28/20 25 05/28/2025 US, obste tric, follo w-up No observ ation record ed. [email or web address] [facility] [address], [place], [address], 06/01/2025 15:13:13 06/08/20 25 06/07/2025 US, obste tric, follo w-up No observ ation record ed. [email or web address] [facility] [address] [facility], [place], [address], 06/15/2025 10:53:46 07/07/20 25 07/07/2025 US, obste tric, follo w-up No observ ation record ed. [email or web address] [facility] [address], [place], [address], 07/07/2025 13:18:01 07/07/20 25 07/07/2025 US, obste tric, follo w-up No observ ation record ed. [email or web address] [address], [place], [address], 07/07/2025 11:29:37 08/04/20 25 08/04/2025 US, obste tric, follo w-up No observ ation record ed. [email or web address] [facility] [address], [place], [address], 08/04/2025 15:08:50 08/04/20 25 08/04/2025 US, obste tric, follo w-up No observ ation record ed. [email or web address] [facility] [address], [place], [address], 08/06/2025 10:41:50 08/11/20 25 08/11/2025 non-s tress test No observ ation record ed. [address], [place], [address], 08/11/2025 17:37:52 08/11/20 non-s tress test No observ ation record ed. [email or web address] [facility] [address], [place], [address], 08/11/2025 17:38:11 08/15/2008/15/2025 non-s tress test No observ ation record ed. [address], [place], [address], 08/21/2025 10:18:57 08/15/2008/15/2025 US, obste tric, bioph ysica l profi le No observ ation record ed. [address], [place], [address], 08/17/2025 10:50:53 08/18/2008/18/2025 US, obste tric, bioph ysica l profi le + non-s tress test No observ ation record ed. [email or web address] [facility] [address], [place], [address], 08/18/2025 10:21:39 08/18/2008/18/2025 US, obste tric, bioph ysica l profi le + non-s tress test No observ ation record ed. [email or web address] [facility] [address], [place], [address], 08/18/2025 10:35:44 08/18/2008/18/2025 non-s tress test No observ ation record ed. [email or web address] [facility] [address], [place], [address], 08/18/2025 17:34:03 08/18/20 non-s tress test No observ ation record ed. [email or web address] [facility] [address], [place], [address], 08/18/2025 16:06:09 08/25/2008/25/2025 US, obste tric, bioph ysica l profi le + non-s tress test No observ ation record ed. [facility] [address], [place], [address], 08/25/2025 18:52:06 08/25/2008/25/2025 US, obste tric, follo w-up No observ ation record ed. joelle [facility] [address], [place], [address], 08/25/2025 15:47:28 08/25/20 25 08/25/2025 non-s tress test No observ ation record ed. [address], [place], [address], 08/25/2025 18:12:15 08/25/20 non-s tress test No observ ation record ed. [address], [place], [address], 08/25/2025 17:21:19 08/30/20 25 08/30/2025 imagi ng/di agnos tic resul t No observ ation record ed. [address] [address], [place], [address], 08/31/2025 18:17:32 09/01/20 25 09/01/2025 non-s tress test No observ ation record ed. [address], [place], [address], 09/13/2025 11:32:22 09/01/20 25 09/01/2025 US, obste tric No observ ation record ed. [address], [place], [address], 09/02/2025 15:56:01 09/01/20 25 09/01/2025 non-s tress test No observ ation record ed. [address] [facility] [address], [place], [address], 09/02/2025 14:32:38 Result Notes None recorded. Problems Name Problem SNOMED Code Status Onset Date Resolution Date Notes Provider Name and Address Organization Details Recorded Time Hypereme sis 599666183 Completed phenerga n now prn Asia ramos [facility] 2 16:43:51 Anxiety in pregnanc y 7811759115 9109 Completed will continue to monitor Asia ramos [facility] 2 16:43:51 Past pregnanc y history of gestatio nal diabetes mellitus 436700421 Completed Early 1 hr GTT @ 20wks 11/03 APPT Asia ramos [facility] 2 16:43:51 Spinal muscular atrophy 0912962 Completed Carrier - Not in contact with FOB. Asia ramos [facility] 2 16:43:51 Anxiety 65548564 Completed prozac Karina ramos [facility] 4 11:00:46 Nausea 440304258 Completed d/c zofran pump 11/08 per pt request Karina ramos [facility] 4 11:00:46 Postpart um hemorrha ge [id number] Completed 2017 with d&c Karina ramos [facility] 4 11:00:46 Normal pregnanc y in multigra jessy 5823131613 56170 Completed 201907/05/2021 Encounte r for supervis ion of other normal pregnanc y, 3rd trimeste r;Record ed Elsewher e: No Locat ion: Jaelyn castillo [facility] S ource: EHR Envelope Sealer yvrose: N Practi ce ID: 0001 Gigi lable Time: 10:45:00 AM Karina ramos, [facility] 10:15:27 Gestatio n period, 37 weeks 22454988 Completed 201907/05/2021 37 weeks gestatio n of pregnanc y;Record ed Elsewher e: No Locat ion: [facility] S ource: EHR Envelope Sealer yvrose: N Practi ce ID: 0001 Gigi lable Time: 09:00:00 AM Karina ramos, [facility] 10:15:[address] Concept Completed 201907/05/2021 Matern care for abnlt fetl hrt rate or rhym, 3rd tri, unsp;Rec orded Elsewher e: No [facility] S ource: EHR Envelope Sealer yvrose: N Practi ce ID: 0001 Gigi lable Time: 08:45:00 AM Karina ramos, [facility] 10:15:29 Gestatio nal diabetes mellitus 23141781 Completed 201907/05/2021 Gestatio nal diabetes mellitus in pregnanc y, diet controll ed;Recor ded Elsewher e: No Locat ion: [facility] S ource: EHR Envelope Sealer yvrose: N Practi ce ID: [id number] Gigi lable Time: 11:45:00 AM Karina ramos [facility] 10:15:25 Gestatio n period, 38 weeks 98119138 Completed 201907/05/2021 38 weeks gestatio n of pregnanc y;Record ed Elsewher e: No Locat ion: [facility] S ource: EHR Envelope Sealer yvrose: N Practi ce ID: 0001 Gigi lable Time: 11:30:00 AM Karina Burroughs null, [facility] 1 10:15:13 Amenorrh ea 90555687 Completed 202007/10/2021 Tamim Jones null, [facility] 1 13:08:35 Pregnanc y 58063683 Completed 202003/29/2022 Karina Burroughs null, [facility] 4 11:00:49 Pregnanc y 45313092 Completed 202304/22/2024 Karina Burroughs null, [facility] 4 11:00:49 Headache 35819461 Active 2023 Karina Burroughs null, [facility] 5 16:19:28 Pregnanc y 99269300 Active 2023 Karina Burroughs null, [facility] 5 16:19:28 Uncompli cated moderate persiste nt asthma 792868876 Active 2024 albutero l prn Shawn Bradley MD [address], [place], [address], [facility] 5 13:08:36 Anxiety 13046794 Active 2024 sertrali ne started 03/02/25 changed to prozac 10 on Shawn Bradley MD [address], [place], [address], [facility] 5 17:05:48 Nausea and vomiting 34422468 Active 2024 Shawn Bradley MD [address], [place], [address], [facility] 5 13:20:27 Placenta circumva llata 0787567 Active 2024 32wk growth us Ryann ramos [facility] 5 09:44:35 Frequent headache 141225303 Active 2024 transpor t to [facility] [facility] 05/21, discharg e 05/23 [facility] referral faxed 05/24 [facility] consult pending per Toya RN [facility]- Neuro [facility] unable to [...] than 2-3 times a week. Ryann Matthew rachel [facility] 5 10:55:26 Abnormal placenta affectin g manageme nt of mother 91541861 Active 2024 [facility]CI serial growth us Ryann ramos [facility] 5 10:46:25 Iron deficien cy anemia 53963622 Active 2024 [facility] MFM tx venofer 200mg x1 HGB 10.6 Ryann ramos [facility] 5 15:21:25 Gestatio nal diabetes mellitus 66498046 Active 2024 checking bs QID - ruled in GDM Referral faxed to [facility] 07/07 Ryann Matthew ramos [facility] 5 14:36:52 Notes:Order faxed to [facility] r access 08/10 for PICC line, and home health already caring for pt. Vladimir RDZ at [phone] Problem Notes None recorded. Procedures Surgical History Date Name Laterality Status Provider Name and Address Organization Details Recorded Time 025 SALPINGECTOMY, LAPAROSCOPIC (SURG) completed Not Available [facility] 09/06/2025 11:19:17 04/02/2 025 Date of Last Pap Smear completed Karina Burroughs [facility] 01/28/2025 11:19:42 024 Nexplanon Removal completed Shawn Bradley MD [address], [place], [address], [facility] 08/05/2024 15:09:58 024 Control Implant Insertion completed Anju Mcnamara CNM [address], [place], [address], [facility] 05/08/2024 17:59:34 024 cholecystectomy completed [...] Name and Address Organization Details Recorded Time 46057 terbutali ne medicatio n anaphylax is Not available Not available 01/27/20252021 22079 [facility] 16:19:27 39103 amoxicill in medicatio n Not available Not available Not available 09/10/2025 723 RxNorm Not Available [employer] - External Data Service - prod 16:39:37 51450 terbinafi ne medicatio n anaphylax is Not available [facility] 09/10/20252024 94892 RxNorm Not Available [employer] External Data Service - prod 16:40:54 Medications [...] Prescrib ed Elsewher e: Yes Loca tion: 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 06/23/2025 14:17:59 Social History Question Answer Notes LastModified by Organizat ion Details LastModified Time Tobacco Smoking Status Former Smoker Karina ramos, [facility] 07/05/2021 09:06:21 If You Are , What Was Your Level Of Alcohol Consumption Prior To ? Occasional [email or web address] Information not available 03/31/2025 Are You Blind Or Do You Have Difficulty Seeing? No [email or web address] Information not available 07/05/2021 What Is Your Level Of Caffeine Consumption? Heavy [email or web address] Information not available 07/05/2021 In The 14 Days Before Symptom Onset, Have You Had Close Contact With A Laboratory-confir med COVID-19 While That Case Was Ill? No [email or web address] Information not available 07/05/2021 In The 14 Days Before Symptom Onset, Have You Had Close Contact With A Person Who Is Under Investigation For COVID-19 While That Person Was Ill? No Information not available 07/05/2021 Have You Been To An Area Known To Be High Risk For COVID-19? No [email or web address] Information not available 07/05/2021 Are You Deaf Or Do You Have Serious Difficulty Hearing? No [email or web address] Information not available 07/05/2021 What Type Of Diet Are You Following? REGULAR [email or web address] Information not available 07/05/2021 Which Illicit Or Recreational Drugs Have You Used? Marijuana [email or web address] Information not available 07/05/2021 Have You Ever Been Counseled For Unhealthy Alcohol Use? No [email or web address] Information not available 07/05/2021 Do You Use Your Seat Belt Or Car Seat Routinely? Yes [email or web address] Information not available 07/05/2021 Do You Have Smoke And Carbon Monoxide Detectors In Your Home? Yes [email or web address] Information not available 07/05/2021 Do You Use Sunscreen Routinely? Yes [email or web address] Information not available 07/05/2021 Has Tobacco Cessation Counseling Been Provided? No [email or web address] Information not available 07/05/2021 Have You Used IV Drugs? No Information not available 07/05/2021 Do You Have Difficulty Walking Or Climbing Stairs? No [email or web address] Information not available 12/06/2021 Sex: Unknown Functional Status Question Answer Note LastModified by Organizat ion Details LastModified Time Do you use any illicit or recreational drugs? Yes [email or web address] Information not available 07/05/2021 Do you or have you ever used any other forms of tobacco or nicotine? Yes [email or web address] Information not available 07/05/2021 What is your level of alcohol consumption? None Information not available 03/31/2025 Do you or have you ever used smokeless tobacco? Never used smokeless tobacco [email or web address] Information not available 07/05/2021 Are you able to walk independently without assistance or assistive devices? YESWOREST [email or web address] Information not available 07/05/2021 Are you able to care for yourself independently? Yes [email or web address] Information not available 12/06/2021 Do you have difficulty dressing, bathing, grooming, or toileting? No [email or web address] Information not available 12/06/2021 Do you or have you ever used e-cigarettes or vape? Current user of electronic cigarettes [email or web address] Information not available 07/05/2021 What is your exercise level? Occasional [email or web address] Information not available 07/05/2021 Mental Status Question Answer Note LastModified by Organization D etails LastModified Time Do you feel stressed (tense, restless, nervous, or anxious, or unable to sleep at night)? [id number] [email or web address] Information not available 07/05/2021 Family History Relationship Description Onset Age of this Age Resolved Age Notes LastModified by Organization Details LastModified Time Father No current problems or disability [email or web address] Not available 05/2021 09:06:31 Mother No current problems or disability [email or web address] Not available 05/2021 09:06:31 Medical History Condition [...] ICD10 Code Diagnosis IMO Codes Diagnosis Note [id number] Shawn Bradley MD [facility] [address] [address] 05/28/2025 13:46:14 05/28/2025 14:40:01 Abnormal placenta affecting management of mother 69743307 O43.192 Z3A.24 [id number] Anju Mcnamara CNM [facility] [address],[facility] [place] [address] 05/28/2025 13:46:33 05/28/2025 15:52:47 Gestation period, 24 weeks [id number] Z3A.24 [id number] cont pnv [id number] Shawn Bradley MD [facility] [address],[place] [address] 06/23/2025 13:43:13 06/25/2025 17:52:18 [id number] Anju Mcnamara CNM [facility] [address],[place] [address] 06/23/2025 13:43:28 06/23/2025 15:58:03 Heartburn [id number] R12 46854 Gestation period, 28 weeks 56859137 Z3A.28 [id number] Health Concerns Section Related Observation LastModified by Organization Detai ls LastModified Time None Recorded Concern Status LastModified by Organization Details LastModified Time None Recorded Payers Encounter Date Sequence Insurance Name Policy Number Policy Roberts Covered Member ID Roberts Member ID Guarantor Name 06/23/2025 1 [facility] (MEDICAID HMO) [id number] Yuni Mejia [id number] Yuni Mejia Notes Date Note Type Note Provider Name and Address Organization Details Recorded Time 06/23/2025 text/html Generic HPI TemplateReported by Patient Anju Mcnamara CNM [address], [place], [address], [facility] 06/23/2025 15:46:54 OBGyn Episode Ob Episode Information Episode Created Date Number of Fetuses Patient Bloodtype Patient rh Status Prepregnancy Weight lbs Domestic Partner Domestic Partner Phone Father Name Roll Form Operator Status 03/02/20 25 1 B Positive 164 OPEN Fetus Data First Name Last Name Admitted to NICU Weight (g) Sex Living Outcome Pediatric Complications Fetus ID Race Codes Race Delivery Type [id number] Problems Problem Notes SDH form completed 5GI consult Tachycardia Holter monitor 72 order- pt sent back on 03-27-25 Cardiology referral faxed per Dr Martínez office calling pt 04/21 to schedule consult scheduled 05/11 11:15AM Problem Name Start Date End Date Resolution Snomed Code Not e Uncomplicated moderate persistent asthma 03/02/2025 [id number] albuterol prn Abnormal placenta affecting management of mother 05/04/2025 94570244 [facility] serial grow th us Iron deficiency anemia 05/25/2025 [id number] [facility] MF tx [place] 200mg x1 HGB 10.6 Nausea and vomiting 03/02/2025 [id number] Anxiety 03/02/2025 57250854 sertralin e started 03/02/25 changed to prozac 10 on Gestational diabetes mellitus 07/08/2025 36773341 checking bs QID - ruled in GDM Referral faxed to [facility] 07/07 Frequent headache 05/03/2025 [id number] [place] to [facility] [place] 05/21, discharge 05/23 [facility] referral faxed 05/24 [facility] Neurology consult pending per KAJAL Pittman [facility]- Neuro SS unable to see pt due to insurance 05/25[facility] 07/05/25 Level US & Consult (see [facility] consult zayas recommendations ) regimen prn Imitrex 50mg for acute migraine, vitamin B2 (Riboflavin) 400mg, Coenzyme q10 300mg and magnesium oxide 200 to 600mg daily. minimize use of Excedrin or Tylenol to no more than 2-3 times a week. 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 went to ed exam done cultures and rx sent, ?FM, await potline monitor results rfilled zofran, precautions and education [...] Type Weight in lbs Pre/Post Dialysis Refused 168.500276947096 BP Diastolic BP Location Tested BP Systolic [...] Type Weight in lbs Pre/Post Dialysis Refused 169.812403700736 BP Diastolic BP Location Tested BP Systolic [...] Weight in lbs Pre/Post Dialysis Refused Weight 175.247137374944 BP Diastolic BP Location Tested BP Systolic [...] Weight in lbs Pre/Post Dialysis Refused Weight 182.113632327658 BP Diastolic BP Location Tested BP Systolic [...] Weight in lbs Pre/Post Dialysis Refused Weight 181.467947495781 BP Diastolic BP Location Tested BP Systolic BP Type 73 L arm 131 sitting Fetus Heart Rate Present Fetus Movement A Yes Comments viral URI testied neg at urg ent care, nausea resolved, efw 68%, +FM plan education and precautions f/u 2 weeks diagnosed GDM, plan chief writer, gave list reviewed protein vs carb Flowsheet Date 07/21/2025 Gibson Score Blood Edema Fundus Height Fundus Units Glucose Ketones Leukocytes Nitrite Labor Signs Protein Cervic Dilation Cervic Effacement Cervic Station Type Weight in lbs Pre/Post Dialysis Refused Weight 181.208790965320 BP Diastolic BP Location Tested BP Systolic BP Type 78 L arm 127 sitting Fetus Heart Rate Present A 150 Fetus Movement A Yes Comments rpt urine culture +FM review ed blood sugars, meets with chief writer today, precautions and education f/u 2 [...] Weight in lbs Pre/Post Dialysis Refused Weight 181.428912057329 BP Diastolic BP Location Tested BP Systolic [...] Weight in lbs Pre/Post Dialysis Refused Weight 183.641239813481 BP Diastolic BP Location Tested BP Systolic [...] Type Weight in lbs Pre/Post Dialysis Refused 184.688782520597 BP Diastolic BP Location Tested BP Systolic [...] Type Weight in lbs Pre/Post Dialysis Refused 184.866102791289 BP Diastolic BP Location Tested BP Systolic [...] Type Weight in lbs Pre/Post Dialysis Refused 184.634172440961 BP Diastolic BP Location Tested BP Systolic [...] Weight in lbs Pre/Post Dialysis Refused Weight 184.170655911951 BP Diastolic BP Location Tested BP Systolic [...]
--- OUTSIDE RECORDS SUMMARY | 2025-09-14 00:22 | XMS_ITS | Continuity of Care Document ---
Author Organization [facility], [facility] Address [address] [place] [address] [place] [address] Care Team Providers Care Press Setup Operator Name Role Phone CARLOS ESTRADA Primary Care Provider [phone] Assessment No assessment recorded. Plan of Treatment Reminders Order Date Submit Date Provider Last Modified By Organization Details Last Modified Time Details Appointments None record ed. Lab None record ed. Referral None record ed. Procedures None record ed. Surgeries None record ed. Imaging non-st ress test 025 08/11/20 25 [email or web address] [address], [address], [place], [address], 17:46:32 Medication Orders None record ed. Patient TargetsNo targets recorded. Patient InstructionsNo instructions recorded. Reason for Referral None Reported. Results Created Date Observation Date Name Description Value Unit Range Abnormal Flag Note LastModifiedBy Organization Detail LastModifiedTime 03/06/2003/06/2025 [UNIT Y] ANEUP LOIDY NIPT fraction 5.7% normal Not Available [facility] [address], [place], [address], 03/06/2025 03:58:26 03/06/20 25 03/06/2025 [UNIT Y] ANEUP LOIDY NIPT sex chromosome aneuploidy NOT DETECT ED normal Not Available [facility] [address], [place], [address], 03/06/2025 03:58:26 03/06/20 25 03/06/2025 [UNIT Y] ANEUP LOIDY NIPT monosomy X LOW RISK <1 in 10,000 normal Not Available [facility] [address], [place], [address], 03/06/2025 03:58:26 03/06/20 25 03/06/2025 [UNIT Y] ANEUP LOIDY NIPT trisomy 13 LOW RISK <1 in 10,000 normal Not Available [facility] [address], [place], [address], 03/06/2025 03:58:26 03/06/20 25 03/06/2025 [UNIT Y] ANEUP LOIDY NIPT trisomy 18 LOW RISK <1 in 10,000 normal Not Available [facility] [address], [place], [address], 03/06/2025 03:58:26 03/06/20 25 03/06/2025 [UNIT Y] ANEUP LOIDY NIPT trisomy 21 LOW RISK <1 in 10,000 normal Not Available [facility] [address], [place], [address], 03/06/2025 03:58:26 03/06/20 25 03/06/2025 [UNIT Y] ANEUP LOIDY NIPT sex FEMALE normal Not Available [facility] [address], [place], [address], 03/06/2025 03:58:26 03/06/20 25 03/06/2025 [UNIT Y] ANEUP LOIDY NIPT gestation SINGLE TON normal Not Available [facility] [address], [place], [address], 03/06/2025 03:58:26 03/06/20 25 03/06/2025 [UNIT Y] ANEUP LOIDY NIPT for detailed report, see pdf See PDF normal Not Available [facility] [address], [place], [address], 03/06/2025 03:58:26 03/02/2003/02/2025 CULTU RE: URINE result report SEE RESULT S BELOW Test: Cultu re: Urine Speci men Sourc e: Urine - Clean Catch Speci men Type: Urine Speci men Date: 1455 Resul t Date: 025 2138 Resul t Statu s: Final resul t Abnor mal: No Resul ting Lab: [facility] [address] [facility] [address] Tel: CULTU RE ----- ----- ----- --- No growt h in 1 day (dete ction level of 10,00 0 colon ies / ml.) Not Available [facility] (Lab) [address] [facility], [place], [address], 03/03/2025 22:42:27 03/12/2003/12/2025 CULTU RE: URINE result report SEE RESULT S BELOW Test: Cultu re: Urine Speci men Sourc e: Urine - Clean Catch Speci men Type: Urine Speci men Date: 2024 1600 Resul t Date: 2024 0610 Resul t Statu s: Final resul t Abnor mal: No Resul ting Lab: [facility] [address] [facility] [address] Tel: CULTU RE ----- ----- ----- --- No growt h in 1 day (dete ction level of 10,00 0 colon ies / ml.) Not Available [facility] (Lab) [address] [facility], [place], [address], 03/14/2025 07:15:03 03/12/2003/12/2025 urina lysis , dipst ick Leukocytes ++ Not Available [address], [place], [address], 03/12/2025 16:45:06 03/12/2003/1203/12/2025 urina lysis , dipst ick Protein + Not Available [facility] [address], [place], [address], 03/12/2025 16:45:06 03/12/20 25 03/12/2025 urina lysis , dipst ick pH 5 Not Available [facility] [address], [place], [address], 03/12/2025 16:45:06 03/12/20 25 03/12/2025 urina lysis , dipst ick Blood trace Not Available [facility] [address], [place], [address], 03/12/2025 16:45:06 03/12/20 25 03/12/2025 urina lysis , dipst ick Specific [place] 1.015 Not Available [facility] [address], [place], [address], 03/12/2025 16:45:06 03/12/20 25 03/12/2025 urina lysis , dipst ick Ketone +++ Not Available [facility] [address], [place], [address], 03/12/2025 16:45:06 03/31/20 25 03/31/2025 TSH, REFLE X FREE T4 TSH 0.42 uIU/m L 0.30-5 .33 Not Available [facility] (Lab) [address], [place], [address], 04/01/2025 03:05:12 03/31/20 25 03/31/2025 CULTU RE: URINE result report SEE RESULT S BELOW Test: Cultu re: Urine Speci men Sourc e: Urine Voide d Speci men Type: Urine Speci men Date: 1710 Resul t Date: 6 Resul t Statu s: Final resul t Abnor mal: No Resul ting Lab: [facility] [address] [facility] [place] [address] Tel: CULTU RE ----- ----- ----- --- Cultu re resul t (>=3 organ isms prese nt) indic ates possi ble conta minat ion. Repea t cultu re if sympt oms indic ate. Not Available [facility] (Lab) [address] [facility], [place], [address], 04/01/2025 23:59:19 03/31/20 25 03/31/2025 urina lysis , dipst ick Leukocytes +1 Not Available [address], [place], [address], 03/31/2025 09:23:13 03/31/20 25 03/31/2025 urina lysis , dipst ick Nitrite normal Not Available [facility] [address], [place], [address], 03/31/2025 09:23:13 03/31/20 25 03/31/2025 urina lysis , dipst ick Urobilinogen normal Not Available [facility] david [address], [place], [address], 03/31/2025 09:23:13 03/31/20 25 03/31/2025 urina lysis , dipst ick Protein trace Not Available [facility] [address], [place], [address], 03/31/2025 09:23:13 03/31/20 25 03/31/2025 urina lysis , dipst ick pH 5 Not Available [facility] [address], [place], [address], 03/31/2025 09:23:13 03/31/20 25 03/31/2025 urina lysis , dipst ick Specific [place] 1.020 Not Available [facility] [address], [place], [address], 03/31/2025 09:23:13 03/31/20 25 03/31/2025 urina lysis , dipst ick Ketone normal Not Available [facility] [address], [place], [address], 03/31/2025 09:23:13 03/31/20 25 03/31/2025 urina lysis , dipst ick Bilirubin normal Not Available [facility] [address], [place], [address], 03/31/2025 09:23:13 03/31/20 25 03/31/2025 urina lysis , dipst ick Glucose normal Not Available [facility] [address], [place], [address], 03/31/2025 09:23:13 03/31/20 25 03/31/2025 urina lysis , dipst ick Appearance normal [facility] [address], [place], [address], 03/31/2025 09:23:13 03/31/20 25 03/31/2025 urina lysis , dipst ick Color normal Not Available [facility] [address], [place], [address], 03/31/2025 09:23:13 04/01/20 25 04/01/2025 [facility] DENIS bacterial vaginosis (bv), tma Negati ve negati ve Not Available [facility] (Lab) [address] [place] [place], [address], 04/02/2025 14:08:45 04/01/20 25 04/01/2025 [facility], DENIS mekhi species, tma Negati ve negati ve Not Available [facility] (Lab) [address] [place], [address], 04/02/2025 14:08:45 04/01/20 25 04/01/2025 [facility]OMEN 'S [facility] H SWAB PLUS, DENIS mekhi glabrata, tma Negati ve negati ve Not Available [facility] (Lab) [address] [place], [address], 04/02/2025 14:08:45 04/01/20 25 04/01/2025 [facility], DENIS trichomonas vaginalis, tma Negati ve negati ve Not Available [facility] (Lab) [address] [facility], [place], [address], 04/02/2025 14:08:45 04/01/20 25 04/01/2025 [facility], DENIS chlamydia trachomatis, PCR Negati ve negati ve Not Available [facility] (Lab) [address] [place], [address], 04/02/2025 14:08:45 04/01/20 25 04/01/2025 [facility], DENIS neisseria gonorrhoeae, [...] ded in this panel . Not Available [facility] (Lab) [address] [place], [address], 04/02/2025 14:08:45 04/22/20 25 04/22/2025 CULTU RE: URINE result report SEE RESULT S BELOW Test: Cultu re: Urine Speci men Sourc e: Urine Voide d Speci men Type: Urine Speci men Date: 2024 1314 Resul t Date: 2024 0322 Resul t Statu s: Final resul t Abnor mal: No Resul ting Lab: [facility] [address] [facility] [place] [address] Tel: CULTU RE ----- ----- ----- --- No growt h in 1 day (dete ction level of 10,00 0 colon ies / ml.) Not Available [facility] (Lab) [address], [place], [address], 04/24/2025 04:28:01 04/22/20 25 04/22/2025 urina lysis , dipst ick Leukocytes + Not Available [facility] [address], [place], [address], 04/22/2025 10:01:51 04/22/20 25 04/22/2025 urina lysis , dipst ick Protein + Not Available [facility] [address], [place], [address], 04/22/2025 10:01:51 04/22/20 25 04/22/2025 urina lysis , dipst ick pH 8 Not Available [facility] [address], [place], [address], 04/22/2025 10:01:51 04/22/20 25 04/22/2025 urina lysis , dipst ick Blood + Not Available [facility] [address], [place], [address], 04/22/2025 10:01:51 04/22/2004/22/2025 urina lysis , dipst ick Specific [place] 1.010 Not Available [facility] [address], [place], [address], 04/22/2025 10:01:51 04/22/20 25 04/22/2025 urina lysis , dipst ick Ketone + Not Available [facility] [address], [place], [address], 04/22/2025 10:01:51 06/23/2006/23/2025 HEMAT OCRIT (HCT) HCT 35.6 % (based on docume nted legal sex) 34.0-4 5.0 Not Available [facility] (Lab) [address] [facility], [place], [address], 06/24/2025 11:45:32 06/23/20 25 06/23/2025 HEMOG LOBIN (HGB) HGB 11.1 g/dL (based on docume nted legal sex) 11.6-1 5.4 low Not Available [facility] (Lab) [address] [facility], [place], [address], 06/24/2025 11:45:32 06/23/20 25 06/23/2025 GTT - GESTA ROLAND L SCREE N, ACOG OB glucose, 1 hour screen 180 mg/dL 70-135 high Not Available [facility] (Lab) [address] [facility], [place], [address], 06/24/2025 11:45:33 06/23/20 25 06/23/2025 HIV 1/2 ANTIG EN/AN TIBOD Y, REFLE X CONFI RMATI ON HIV antigen/anti body Nonrea ctive nonrea ctive HIV-1 antig en and HIV-1 /HIV- 2 antib odies were not detec greg. No labor atory evide nce of HIV infec tion. Not Available [facility] (Lab) [address] [facility], [place], [address], 06/24/2025 11:45:33 06/23/20 25 06/23/2025 RPR SCREE N, REFLE X TITER /CONF IRMAT ION RPR qualitative Nonrea ctive nonrea ctive Not Available [facility] (Lab) [address] [facility], [place], [address], 06/24/2025 11:45:34 07/21/20 25 07/21/2025 CULTU RE: URINE result report SEE RESULT S BELOW Test: Cultu re: Urine Speci men Sourc e: Urine - Clean Catch Speci men Type: Urine Speci men Date: 2024 1024 Resul t Date: 2024 0252 Resul t Statu s: Final resul t Abnor mal: No Resul ting Lab: [facility] [address] [facility] [place] [address] Tel: CULTU RE ----- ----- ----- --- No growt h in 1 day (dete ction level of 10,00 0 colon ies / ml.) Not Available [facility] (Lab) [address] [facility], [place], [address], 07/23/2025 03:57:01 07/21/2007/21/2025 urina lysis , dipst ick Leukocytes ++ Not Available [address], [place], [address], 07/21/2025 11:03:04 07/21/20 25 07/21/2025 urina lysis , dipst ick Nitrite neg Not Available [address], [place], [address], 07/21/2025 11:03:04 07/21/20 25 07/21/2025 urina lysis , dipst ick Urobilinogen neg Not Available [facility] [address], [place], [address], 07/21/2025 11:03:04 07/21/20 25 07/21/2025 urina lysis , dipst ick Protein + Not Available [facility] [address], [place], [address], 07/21/2025 11:03:04 07/21/20 25 07/21/2025 urina lysis , dipst ick pH 5 Not Available [facility] [address], [place], [address], 07/21/2025 11:03:04 07/21/20 25 07/21/2025 urina lysis , dipst ick Specific [place] 1.030 Not Available [facility] nita [address], [place], [address], 07/21/2025 11:03:04 07/21/20 25 07/21/2025 urina lysis , dipst ick Ketone +++ Not Available [facility] [address], [place], [address], 07/21/2025 11:03:04 07/21/20 25 07/21/2025 urina lysis , dipst ick Bilirubin neg Not Available [facility] [address], [place], [address], 07/21/2025 11:03:04 07/21/20 25 07/21/2025 urina lysis , dipst ick Glucose neg Not Available [facility] [address], [place], [address], 07/21/2025 11:03:04 07/21/20 25 07/21/2025 urina lysis , dipst ick Appearance cloudy Not Available [address], [place], [address], 07/21/2025 11:03:04 07/21/20 25 07/21/2025 urina lysis , dipst ick Color dark Not Available [facility] [address], [place], [address], 07/21/2025 11:03:04 08/04/20 25 08/04/2025 CMP(C OMPRE HENSI VE METAB OLIC PANEL ) sodium 138 mmol/ L 133-14 6 Not Available [facility] (Lab) [address] [facility], [place], [address], 08/05/2025 13:39:18 08/04/2008/04/2025 CMP(C OMPRE HENSI VE METAB OLIC PANEL ) potassium 4.0 mmol/ L 3.5-5. 1 Not Available [facility] (Lab) [address] [facility], [place], [address], 08/05/2025 13:39:18 08/04/20 25 08/04/2025 CMP(C OMPRE HENSI VE METAB OLIC PANEL ) chloride 105 mmol/ L 98-107 Not Available [facility] (Lab) [address] [facility], [place], [address], 08/05/2025 13:39:18 08/04/20 25 08/04/2025 CMP(C OMPRE HENSI VE METAB OLIC PANEL ) carbon dioxide 25 mmol/ L 21-31 Not Available [facility] (Lab) [address] [facility], [place], [address], 08/05/2025 13:39:18 08/04/20 25 08/04/2025 CMP(C OMPRE HENSI VE METAB OLIC PANEL ) anion gap 8 mmol/ L 4-13 Not Available [facility] (Lab) [address] [place], [address], 08/05/2025 13:39:18 08/04/20 25 08/04/2025 CMP(C OMPRE HENSI VE METAB OLIC PANEL ) blood urea nitrogen 10 mg/dL 7-25 Not Available [facility] (Lab) [address] [facility], [place], [address], 08/05/2025 13:39:18 08/04/20 25 08/04/2025 CMP(C OMPRE HENSI VE METAB OLIC PANEL ) creatinine 0.41 mg/dL 0.60-1 .30 low Not Available [facility] (Lab) [address] [facility], [place], [address], 08/05/2025 13:39:18 08/04/20 25 08/04/2025 CMP(C OMPRE HENSI VE METAB OLIC PANEL ) egfrcr (CKD-epi 2020) >90 mL/mi n/1.7 3_m2 >=60 Not Available [facility] (Lab) [address] [facility], [place], [address], 08/05/2025 13:39:18 08/04/20 25 08/04/2025 CMP(C OMPRE HENSI VE METAB OLIC PANEL ) calcium 8.9 mg/dL 8.3-10 .5 Not Available [facility] (Lab) [address] [facility], [place], [address], 08/05/2025 13:39:18 08/04/20 25 08/04/2025 CMP(C OMPRE HENSI VE METAB OLIC PANEL ) glucose 116 mg/dL 70-100 high Not Available [facility] (Lab) [address] [facility], [place], [address], 08/05/2025 13:39:18 08/04/20 25 08/04/2025 CMP(C OMPRE HENSI VE METAB OLIC PANEL ) protein, total 6.1 g/dL 6.4-8. 3 low Not Available [facility] (Lab) [address] [facility], [place], [address], 08/05/2025 13:39:18 08/04/20 25 08/04/2025 CMP(C OMPRE HENSI VE METAB OLIC PANEL ) albumin 3.5 g/dL 3.5-5. 0 Not Available [facility] (Lab) [address] [facility], [place], [address], 08/05/2025 13:39:18 08/04/20 25 08/04/2025 CMP(C OMPRE HENSI VE METAB OLIC PANEL ) ALT 11 units /L 9-43 Not Available [facility] (Lab) [address] [facility], [place], [address], 08/05/2025 13:39:18 08/04/20 25 08/04/2025 CMP(C OMPRE HENSI VE METAB OLIC PANEL ) alkaline phosphatase 98 units /L 34-104 Not Available [facility] (Lab) [address] [facility], [place], [address], 08/05/2025 13:39:18 08/04/20 25 08/04/2025 CMP(C OMPRE HENSI VE METAB OLIC PANEL ) AST 15 units /L 13-39 Not Available [facility] (Lab) [address] [facility], [place], [address], 08/05/2025 13:39:18 08/04/20 25 08/04/2025 CMP(C OMPRE HENSI VE METAB OLIC PANEL ) bilirubin, total 0.3 mg/dL 0.2-1. 2 Not Available [facility] (Lab) [address] [facility], [place], [address], 08/05/2025 13:39:18 08/04/20 25 08/04/2025 BILE ACIDS , TOTAL bile acids, total 4 umol/ L 0-10 Test Perfo rmed by: [facility] [address] [address] Not Available [facility] (Lab) [address] [facility], [place], [address], 08/05/2025 13:39:19 03/02/20 25 03/02/2025 US, obste tric, nucha l trans lucen cy No observ ation record ed. [email or web address] [facility] [address], [place], [address], 03/02/2025 13:35:30 03/02/20 25 03/02/2025 US, obste tric, nucha l trans lucen cy No observ ation record ed. [email or web address] [address], [place], [address], 03/03/2025 14:08:39 03/08/20 25 03/08/2025 US, obste tric, 1st trime ster No observ ation record ed. [email or web address] [facility] [address], [place], [address], 03/08/2025 12:22:22 03/08/20 25 03/08/2025 US, obste tric, 1st trime ster No observ ation record ed. [email or web address] [address], [place], [address], 03/10/2025 15:03:13 04/01/20 25 03/24/2025 qamar r monit or No observ ation record ed. [address] [place] [address], [address], 04/08/2025 12:36:45 04/01/20 25 03/22/2025 qamar r monit or No observ ation record ed. [address] (Pulmonary) [address] [place] [address] [place] [address], [address], 04/06/2025 08:59:34 04/20/20 25 04/20/2025 US, obste tric, limit ed No observ ation record ed. [email or web address] [facility] [address], [place], [address], 04/20/2025 17:39:30 04/20/20 25 04/20/2025 US, obste tric, follo w-up No observ ation record ed. [email or web address] [address], [place], [address], 04/23/2025 08:32:54 04/28/20 25 04/28/2025 US, obste tric, 2nd or 3rd trime ster No observ ation record ed. [email or web address] [facility] [address], [place], [address], 04/28/2025 17:48:42 04/28/20 25 04/28/2025 US, obste tric, 2nd or 3rd trime ster No observ ation record ed. E[address], [place], [address], 05/04/2025 22:16:11 05/07/20 25 05/07/2025 non-s tress test No observ ation record ed. [email or web address] [place] [address] [address], [place], [address], 05/28/2025 13:33:54 05/21/20 25 05/21/2025 CT, head + brain , w/o contr ast No observ ation record ed. [email or web address], [place], [address], 05/24/2025 13:48:57 05/28/20 25 05/28/2025 US, obste tric, follo w-up No observ [facility]ion record ed. [email or web address] [address], [place], [address], 05/28/2025 17:32:34 05/28/20 25 05/28/2025 US, obste tric, follo w-up No observ ation record ed. [email or web address] [address], [place], [address], 06/01/2025 15:13:13 06/08/20 25 06/07/2025 US, obste tric, follo w-up No observ ation record ed. [email or web address] [facility] [address] [facility], [place], [address], 06/15/2025 10:53:46 07/07/20 25 07/07/2025 US, obste tric, follo w-up No observ ation record ed. [email or web address] [facility] [address], [place], [address], 07/07/2025 13:18:01 07/07/20 25 07/07/2025 US, obste tric, follo w-up No observ ation record ed. [email or web address] [address], [place], [address], 07/07/2025 11:29:37 08/04/20 25 08/04/2025 US, obste tric, follo w-up No observ ation record ed. [email or web address] [facility] [address], [place], [address], 08/04/2025 15:08:50 08/04/20 25 08/04/2025 US, obste tric, follo w-up No observ ation record ed. [email or web address] [address], [place], [address], 08/06/2025 10:41:50 08/11/2008/11/2025 non-s tress test No observ ation record ed. [email or web address] [facility] [address], [place], [address], 08/11/2025 17:37:52 08/11/20 non-s tress test No observ ation record ed. [email or web address] [facility] [address], [place], [address], 08/11/2025 17:38:11 08/15/2008/15/2025 non-s tress test No observ ation record ed. [address], [place], [address], 08/21/2025 10:18:57 08/15/2008/15/2025 US, obste tric, bioph ysica l profi le No observ ation record ed. [place] [id number] [facility] [address], [place], [address], 08/17/2025 10:50:53 08/18/2008/18/2025 US, obste tric, bioph ysica l profi le + non-s tress test No observ ation record ed. [email or web address] [facility] [address], [place], [address], 08/18/2025 10:21:39 08/18/2008/18/2025 US, obste tric, bioph ysica l profi le + non-s tress test No observ ation record ed. [email or web address] [address], [place], [address], 08/18/2025 10:35:44 08/18/2008/18/2025 non-s tress test No observ ation record ed. [email or web address] [facility] [address], [place], [address], 08/18/2025 17:34:03 08/18/20 non-s tress test No observ ation record ed. [email or web address] [facility] [address], [place], [address], 08/18/2025 16:06:09 08/25/20 25 08/25/2025 US, obste tric, bioph ysica l profi le + non-s tress test No observ ation record ed. [email or web address] [address], [place], [address], 08/25/2025 18:52:06 08/25/2008/25/2025 US, obste tric, follo w-up No observ ation record ed. joelle Esha [address], [place], [address], 08/25/2025 15:47:28 08/25/2008/25/2025 non-s tress test No observ ation record ed. [address], [place], [address], 08/25/2025 18:12:15 08/25/20 non-s tress test No observ ation record ed. [address], [place], [address], 08/25/2025 17:21:19 08/30/2008/30/2025 imagi ng/di agnos tic resul t No observ ation record ed. [address] [place] [address], [address], 08/31/2025 18:17:32 09/01/2009/01/2025 non-s tress test No observ ation record ed. [address] [facility], [place], [address], 09/13/2025 11:32:22 09/01/2009/01/2025 US, obste tric No observ ation record ed. [place] [id number] [facility] [address], [place], [address], 09/02/2025 15:56:01 09/01/20 25 09/01/2025 non-s tress test No observ ation record ed. [address], [place], [address], 09/02/2025 14:32:38 Result Notes None recorded. Problems Name Problem SNOMED Code Status Onset Date Resolution Date Notes Provider Name and Address Organization Details Recorded Time Hypereme sis [id number] Completed phenerga n now prn Asia arias rachel [facility] 2 16:43:51 Anxiety in pregnanc y [id number] Completed will continue to monitor Asia Bermudezganeshpetrona arias rachel [facility] 2 16:43:51 Past pregnanc y history of gestatio nal diabetes mellitus [id number] Completed Early 1 hr GTT @ 20wks 11/03 APPT Asia Baileyrafakandyganeshpetrona arias [facility] 2 16:43:51 Spinal muscular atrophy 6469005 Completed Carrier - Not in contact with FOB. Asia Luis hugo rachel [facility] 2 16:43:51 Anxiety 67459215 Completed prozac Karina ramos [facility] 4 11:00:46 Nausea 348245681 Completed d/c zofran pump 11/08 per pt request Karina ramos [facility] 4 11:00:46 Postpart um hemorrha ge [id number] Completed 2017 with d&c Karina ramos [facility] 4 11:00:46 Normal pregnanc y in multigra jessy [id number] 58437 Completed 201907/05/2021 Encounte r for supervis ion of other normal pregnanc y, 3rd trimeste r;Record ed Elsewher e: No Locat ion: [facility] S ource: EHR Customer Service Representative Teacher yvrose: N Practi ce ID: 0001 Gigi lable Time: 10:45:00 AM Karina ramos [facility] 1 10:15:27 Gestatio n period, 37 weeks 30095653 Completed 201907/05/2021 37 weeks gestatio n of pregnanc y;Record ed Elsewher e: No Locat ion: [facility] S ource: EHR Customer Service Representative Teacher yvrose: N Practi ce ID: 0001 Gigi lable Time: 09:00:00 AM Karina ramos [facility] 10:15:[address] Concept Completed 201907/05/2021 Matern care for abnlt fetl hrt rate or rhym, 3rd tri, unsp;Rec orded Elsewher e: No Locat ion: [facility] S ource: EHR Customer Service Representative Teacher yvrose: N Practi ce ID: 0001 Gigi lable Time: 08:45:00 AM Karina ramos [facility] 10:15:29 Gestatio nal diabetes mellitus 77007685 Completed 201907/05/2021 Gestatio nal diabetes mellitus in pregnanc y, diet controll ed;Recor ded Elsewher e: No Locat ion: 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 10:15:25 Gestatio n period, 38 weeks 07741985 Completed 201907/05/2021 38 weeks gestatio n of pregnanc y;Record ed Elsewher e: No Locat ion: 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 10:15:13 Amenorrh ea 79609706 Completed 202007/10/2021 Tammi ramos [facility] 13:08:35 Pregnanc y 94100201 Completed 202003/29/2022 Karina Burroughs null, [facility] 4 11:00:49 Pregnanc y 51499096 Completed 202304/22/2024 Karina Burroughs null, [facility] 4 11:00:49 Headache 81434463 Active 2023 Karina Burroughs null, [facility] 5 16:19:28 Pregnanc y 90116585 Active 2023 Karina Heike null, [facility] 5 16:19:28 Uncompli cated moderate persiste nt asthma 561604511 Active 2024 albutero l prn Shawn Bradley MD [address], [place], [address], [facility] 5 13:08:36 Anxiety 12519326 Active 2024 sertrali ne started 03/02/25 changed to prozac 10 on Shawn Bradley MD [address], [place], [address], [facility] 5 17:05:48 Nausea and vomiting 65311283 Active 2024 Shawn Bradley MD [address], [place], [address], [facility] 5 13:20:27 Placenta circumva llata 1600392 Active 2024 32wk growth Ryann Castro null, [facility] 5 09:44:35 Frequent headache 757252006 Active 2024 transpor t to [facility] 05/21, discharg e 05/23 [...] 2-3 times a week. Ryann Matthew ramos [facility] 5 10:55:26 Abnormal placenta affectin g manageme nt of mother 19121199 Active 2024 [facility]CI serial growth us Ryann Matthew ramos [facility] 10:46:25 Iron deficien cy anemia 54188531 [facility] x1 HGB 10.6 Ryann Matthew ramos [facility] 5 15:21:25 Gestatio nal diabetes mellitus 53020219 Active 2024 checking bs QID - ruled in GDM Referral faxed to [facility] 07/07 Ryann Matthew ramos [facility] 14:36:52 Notes:Order faxed to [facility] access 08/10 for PICC line, and home health already caring for pt. Vladimir RN at [phone] Problem Notes None recorded. Procedures Surgical History Date Name Laterality Status Provider Name and Address Organization Details Recorded Time 025 SALPINGECTOMY, LAPAROSCOPIC (SURG) completed Not Available [facility] 09/06/2025 11:19:17 025 Date of Last Pap Smear completed Karina Burroughs [facility] 01/28/2025 11:19:42 024 Nexplanon Removal completed Shawn Bradley MD [address], [place], [address], [facility] 08/05/2024 15:09:58 024 Control Implant Insertion completed Anju Mcnamara CNM [address], [place], [address], [facility] 05/08/2024 17:59:34 024 cholecystectomy completed Karina Burroughs [facility] 03/31/2025 09:18:57 018 Dilation and Curettage completed Karina Burroughs [facility] 07/05/2021 10:17:50 Imaging Results None recorded. Procedure Notes None recorded. Medical Equipment None Reported. Allergies Allergen ID Allergen Name Allergen Category Reaction Reaction Severity Criticality Documentation Date Start Date Code Code System Note Provider Name and Address Organization Details Recorded Time 17954 terbutali ne medicatio n anaphylax is Not available Not available 01/27/20252021 71177 RxNorm Karina Burroughs [facility], [facility] 16:19:27 86897 amoxicill in medicatio n Not available Not available Not available 09/10/2025 723 RxNorm Not Available [employer] External Data Service - prod 16:39:37 22339 terbinafi ne medicatio n anaphylax is Not available [facility] 09/10/20252024 62549 RxNorm Not Available [employer] External Data Service - prod 16:40:54 Medications [...] Prescrib ed Elsewher e: Yes Loca tion: [facility] odify By: [email or web address] Encounte r DateTime : [...] n (supplie d by office) insert lot [id number] Exp 01/2026 Not Available Not Available Not Available 28 mg iron-800 mcg tablet 07/05 completed Prescrib ed [facility] e: Yes Loca tion: [facility] odify By: prabhjot barrera DateTime : 01/14/20 10:45:00 AM Not Available Not Available Not Available lidocaine 5 % topical ointment APPLY OINTMENT EXTERNAL LY TO RIBS THREE TIMES DAILY NEEDED 01/14 completed Not Available Not Available Not Available RESIDENT SERVICES COORDINATOR-PNV-DH A 28 mg iron-1 mg-200 mg [...] Updated DateTime 08/11/2025 162.56 cm 31.4 kg/m2 65001.4 g 115/73 mm[Hg] Toya Perkins [facility] 08/11/2025 15:17:18 Social History Question Answer Notes LastModified by Organizat ion Details LastModified Time Tobacco Smoking Status Former Smoker Karina ramos, [facility] 07/05/2021 09:06:21 If You Are , What Was Your Level Of Alcohol Consumption Prior To ? Occasional [email or web address] Information not available 03/31/2025 Are You Blind Or Do You Have Difficulty Seeing? No [email or web address] Information not available 07/05/2021 What Is Your Level Of Caffeine Consumption? Heavy [email or web address] Information not available 07/05/2021 In The 14 Days Before Symptom Onset, Have You Had Close Contact With A Laboratory-confir med COVID-19 While That Case Was Ill? No [email or web address] Information not available 07/05/2021 In The 14 Days Before Symptom Onset, Have You Had Close Contact With A Person Who Is Under Investigation For COVID-19 While That Person Was Ill? No [email or web address] Information not available 07/05/2021 Have You Been To An Area Known To Be High Risk For COVID-19? No [email or web address] Information not available 07/05/2021 Are You Deaf Or Do You Have Serious Difficulty Hearing? No [email or web address] Information not available 07/05/2021 What Type Of Diet Are You Following? REGULAR [email or web address] Information not available 07/05/2021 Which Illicit Or Recreational Drugs Have You Used? Marijuana [email or web address] Information not available 07/05/2021 Have You Ever Been Counseled For Unhealthy Alcohol Use? No [email or web address] Information not available 07/05/2021 Do You Use Your Seat Belt Or Car Seat Routinely? Yes [email or web address] Information not available 07/05/2021 Do You Have Smoke And Carbon Monoxide Detectors In Your Home? Yes [email or web address] Information not available 07/05/2021 Do You Use Sunscreen Routinely? Yes [email or web address] Information not available 07/05/2021 Has Tobacco Cessation Counseling Been Provided? No Information not available 07/05/2021 Have You Used IV Drugs? No [email or web address] Information not available 07/05/2021 Do You Have Difficulty Walking Or Climbing Stairs? No [email or web address] Information not available 12/06/2021 Sex: Unknown Functional Status Question Answer Note LastModified by Organizat ion Details LastModified Time Do you use any illicit or recreational drugs? Yes [email or web address] Information not available 07/05/2021 Do you or have you ever used any other forms of tobacco or nicotine? Yes Information not available 07/05/2021 What is your level of alcohol consumption? None [email or web address] Information not available 03/31/2025 Do you or have you ever used smokeless tobacco? Never used smokeless tobacco [email or web address] Information not available 07/05/2021 Are you able to walk independently without assistance or assistive devices? YESWOREST [email or web address] Information not available 07/05/2021 Are you able to care for yourself independently? Yes [email or web address] Information not available 12/06/2021 Do you have difficulty dressing, bathing, grooming, or toileting? No [email or web address] Information not available 12/06/2021 Do you or have you ever used e-cigarettes or vape? Current user of electronic cigarettes Information not available 07/05/2021 What is your exercise level? Occasional [email or web address] Information not available 07/05/2021 Mental Status Question Answer Note LastModified by Organization D etails LastModified Time Do you feel stressed (tense, restless, nervous, or anxious, or unable to sleep at night)? [id number] [email or web address] Information not available 07/05/2021 Family History Relationship Description Onset Age of this Age Resolved Age Notes LastModified by Organization Details LastModified Time Father No current problems or disability [email or web address] Not available 05/2021 09:06:31 Mother No current problems or disability [email or web address] Not available 05/2021 09:06:31 Medical History Condition [...] ICD10 Code Diagnosis IMO Codes Diagnosis Note [id number] Anju Mcnamara CNM [facility] [address] [address] 07/21/2025 09:28:54 07/21/2025 12:36:06 Pain in pelvis 53087495 R10.2 920413 Gestation period, 32 weeks 3006857 Z3A.32 4885548 [id number] Shawn Bradley MD [facility] [address] [address] 08/04/2025 14:02:59 08/04/2025 15:06:33 Gestational diabetes mellitus 61262458 O24.410 O43.103 O43.113 Z3A.34 52241089 [id number] Anju Mcnamara CNM [facility] [address],[place] [address] 08/04/2025 14:21:57 08/04/2025 15:26:03 Gestation period, 34 weeks 50397664 Z3A.34 2025658 Pruritic d isorder of skin 2257283292 L29.9 77453 plan labs today, ursadiol BID [id number] Anju Mcnamara CNM [facility] [address],[place] [address] 08/11/2025 14:51:38 08/11/2025 17:16:44 Gestational diabetes mellitus 18212754 O24.414 25079163 [id number] Anju Mcnamara CNM [facility] [address],[place] [address] 08/11/2025 16:25:59 08/11/2025 17:46:32 Gestational diabetes mellitus 00174745 O24.414 [id number] Health Concerns Section Related Observation LastModified by Organization Detai ls LastModified Time None Recorded Concern Status LastModified by Organization Details LastModified Time None Recorded Payers Encounter Date Sequence Insurance Name Policy Number Policy Roberts Covered Member ID Roberts Member ID Guarantor Name 08/11/2025 1 [facility] (MEDICAID HMO) [id number] Yuni Mejia [id number] Yuni Mejia Notes Date Note Type Note Provider Name and Address Organization Details Recorded Time 08/11/2025 text/html Generic HPI TemplateReported by Patient Anju Mcnamara CNM [address], [place], [address], [facility] 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 Status 03/02/20 25 1 B Positive 164 OPEN Fetus Data First Name Last Name Admitted to NICU Weight (g) Sex Living Outcome Pediatric Complications Fetus ID Race Codes Race Delivery Type [id number] Problems Problem Notes SDH form completed 5GI consult Tachycardia Holter monitor 72 order- pt sent back on 03-27-25 Cardiology referral faxed per Dr Martínez office calling pt 04/21 to schedule consult scheduled 05/11 11:15AM Problem Name Start Date End Date Resolution Snomed Code Not e Uncomplicated moderate persistent asthma 03/02/2025 [id number] albuterol prn Abnormal placenta affecting management of mother 05/04/2025 77747911 [facility]CI serial grow th us Iron deficiency anemia 05/25/2025 52735526 [facility] tx [place] 200mg x1 HGB 10.6 Nausea and vomiting 03/02/2025 46563600 Anxiety 03/02/2025 50263539 sertralin e started 03/02/25 changed to prozac 10 on Gestational diabetes mellitus 07/08/2025 73842767 checking bs QID - ruled in GDM Referral faxed to [facility] 07/07 Frequent headache 05/03/2025 [id number] [place] [facility] 05/21, discharge 05/23 MF referral faxed 05/24 [facility] Neurology consult pending per KAJAL Pittman [facility]- Neuro [facility] unable to see pt due to insurance 05/25[facility] 07/05/25 Level US & Consult (see [facility] consult zayas recommendations ) regimen prn Imitrex 50mg for acute migraine, vitamin B2 (Riboflavin) 400mg, Coenzyme q10 300mg and magnesium oxide 200 to 600mg daily. minimize use of Excedrin or Tylenol to no more than 2-3 times a week. 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/2025 2521108 32wk growth us Jun Calculation Initial Jun [...] Weight in lbs Pre/Post Dialysis Refused Weight 158.595987185046 BP Diastolic BP Location Tested BP Systolic [...] Weight in lbs Pre/Post Dialysis Refused Weight 158.059187644754 BP Diastolic BP Location Tested BP Systolic [...] Weight in lbs Pre/Post Dialysis Refused Weight 162.565909363097 BP Diastolic BP Location Tested BP Systolic BP Type 78 123 Fetus Heart Rate Present A 148 Fetus Movement A Yes Comments Patient is having having ronny n, cramping and vaginal discharge. went to ed exam done cultures and rx sent, ?FM, await youth nutritional monitor results rfilled zofran, precautions and education [...] Type Weight in lbs Pre/Post Dialysis Refused 168.525399640962 BP Diastolic BP Location Tested BP Systolic [...] Type Weight in lbs Pre/Post Dialysis Refused 169.024754789404 BP Diastolic BP Location Tested BP Systolic [...] Weight in lbs Pre/Post Dialysis Refused Weight 175.893561599165 BP Diastolic BP Location Tested BP Systolic [...] Weight in lbs Pre/Post Dialysis Refused Weight 182.179227013420 BP Diastolic BP Location Tested BP Systolic [...] Weight in lbs Pre/Post Dialysis Refused Weight 181.305222547407 BP Diastolic BP Location Tested BP Systolic BP Type 73 L arm 131 sitting Fetus Heart Rate Present Fetus Movement A Yes Comments viral URI testied neg at urg ent care, nausea resolved, efw 68%, +FM plan education and precautions f/u 2 weeks diagnosed GDM, plan back shoe cutter, gave list reviewed protein vs carb Flowsheet Date 07/21/2025 Gibson Score Blood Edema Fundus Height Fundus Units Glucose Ketones Leukocytes Nitrite Labor Signs Protein Cervic Dilation Cervic Effacement Cervic Station Type Weight in lbs Pre/Post Dialysis Refused Weight 181.672117210066 BP Diastolic BP Location Tested BP Systolic BP Type 78 L arm 127 sitting Fetus Heart Rate Present A 150 Fetus Movement A Yes Comments rpt urine culture +FM review ed blood sugars, meets with back shoe cutter today, precautions and education f/u 2 weeks [...] Weight in lbs Pre/Post Dialysis Refused Weight 181.706640044957 BP Diastolic BP Location Tested BP Systolic [...] Weight in lbs Pre/Post Dialysis Refused Weight 183.121916291048 BP Diastolic BP Location Tested BP Systolic [...] Type Weight in lbs Pre/Post Dialysis Refused 184.010728860472 BP Diastolic BP Location Tested BP Systolic [...] Type Weight in lbs Pre/Post Dialysis Refused 184.483734312538 BP Diastolic BP Location Tested BP Systolic [...] Type Weight in lbs Pre/Post Dialysis Refused 184.396656527912 BP Diastolic BP Location Tested BP Systolic [...] Weight in lbs Pre/Post Dialysis Refused Weight 184.960273625141 BP Diastolic BP Location Tested BP Systolic [...]
--- OUTSIDE RECORDS SUMMARY | 2025-09-14 00:23 | XMS_ITS | Data Portability ---
Author Organization [facility], [facility] Address [address] [place] [address] [place] [address] Care Team Providers Care Hospice Manager Name Role Phone SEAN CARLOS Primary Care Provider Assessment Encounter Date Assessment Date Assessment LastModified by Organization Details LastModified Time 08/25/2025 08/25/2025 Patient is _37__weeks . Discussed plan. Not available 08/25/2025 15:51:15 Plan of Treatment Reminders Order Date Submit Date Provider Last Modified By Organization Details Last Modified Time Details Appointments None recorded. Lab None recorded. Referral None recorded. Procedures None recorded. Surgeries None recorded. Imaging US, obstetric, biophysical profile + non-stress test 2024 025 [facility], [address], [place], [address], 18:52:06 Medication Orders None recorded. Patient TargetsNo targets recorded. Patient InstructionsNo instructions recorded. Reason for Referral None Reported. Results Created Date Observation Date Name Description Value Unit Range Abnormal Flag Note LastModifiedBy Organization Detail LastModifiedTime 08/04/2008/04/2025 CMP(C OMPRE HENSI VE METAB OLIC PANEL ) sodium 138 mmol/ L 133-14 6 Not Available [facility] (Lab) [address], [place], [address], 08/05/2025 13:39:18 08/04/2008/04/2025 CMP(C OMPRE HENSI VE METAB OLIC PANEL ) potassium 4.0 mmol/ L 3.5-5. 1 Not Available [facility] (Lab) [address], [place], [address], 08/05/2025 13:39:18 08/04/20 25 08/04/2025 CMP(C OMPRE HENSI VE METAB OLIC PANEL ) chloride 105 mmol/ L 98-107 Not Available [facility] (Lab) [address], [place], [address], 08/05/2025 13:39:18 08/04/20 25 08/04/2025 CMP(C OMPRE HENSI VE METAB OLIC PANEL ) carbon dioxide 25 mmol/ L 21-31 Not Available [facility] (Lab) [address], [place], [address], 08/05/2025 13:39:18 08/04/20 25 08/04/2025 CMP(C OMPRE HENSI VE METAB OLIC PANEL ) anion gap 8 mmol/ L 4-13 Not Available [facility] (Lab) [address], [place], [address], 08/05/2025 13:39:18 08/04/20 25 08/04/2025 CMP(C OMPRE HENSI VE METAB OLIC PANEL ) blood urea nitrogen 10 mg/dL 7-25 Not Available [facility] (Lab) [address], [place], [address], 08/05/2025 13:39:18 08/04/20 25 08/04/2025 CMP(C OMPRE HENSI VE METAB OLIC PANEL ) creatinine 0.41 mg/dL 0.60-1 .30 low Not Available [facility] (Lab) [address], [place], [address], 08/05/2025 13:39:18 08/04/20 25 08/04/2025 CMP(C OMPRE HENSI VE METAB OLIC PANEL ) egfrcr (CKD-epi 2020) >90 mL/mi n/1.7 3_m2 >=60 Not Available [facility] (Lab) [address], [place], [address], 08/05/2025 13:39:18 08/04/20 25 08/04/2025 CMP(C OMPRE HENSI VE METAB OLIC PANEL ) calcium 8.9 mg/dL 8.3-10 .5 Not Available [facility] (Lab) [address], [place], [address], 08/05/2025 13:39:18 08/04/20 25 08/04/2025 CMP(C OMPRE HENSI VE METAB OLIC PANEL ) glucose 116 mg/dL 70-100 high Not Available [facility] (Lab) [address], [place], [address], 08/05/2025 13:39:18 08/04/20 25 08/04/2025 CMP(C OMPRE HENSI VE METAB OLIC PANEL ) protein, total 6.1 g/dL 6.4-8. 3 low Not Available [facility] (Lab) [address], [place], [address], 08/05/2025 13:39:18 08/04/20 25 08/04/2025 CMP(C OMPRE HENSI VE METAB OLIC PANEL ) albumin 3.5 g/dL 3.5-5. 0 Not Available [facility] (Lab) [address], [place], [address], 08/05/2025 13:39:18 08/04/20 25 08/04/2025 CMP(C OMPRE HENSI VE METAB OLIC PANEL ) ALT 11 units /L 9-43 Not Available [facility] (Lab) [address], [place], [address], 08/05/2025 13:39:18 08/04/20 25 08/04/2025 CMP(C OMPRE HENSI VE METAB OLIC PANEL ) alkaline phosphatase 98 units /L 34-104 Not Available [facility] (Lab) [address], [place], [address], 08/05/2025 13:39:18 08/04/20 25 08/04/2025 CMP(C OMPRE HENSI VE METAB OLIC PANEL ) AST 15 units /L 13-39 Not Available [facility] (Lab) [address], [place], [address], 08/05/2025 13:39:18 08/04/20 25 08/04/2025 CMP(C OMPRE HENSI VE METAB OLIC PANEL ) bilirubin, total 0.3 mg/dL 0.2-1. 2 Not Available [facility] (Lab) [address], [place], [address], 08/05/2025 13:39:18 08/04/20 25 08/04/2025 BILE ACIDS , TOTAL bile acids, total 4 umol/ L 0-10 Test Perfo rmed by: [facility] [address] Not Available [facility] (Lab) [address], [place], [address], 08/05/2025 13:39:19 08/04/20 25 08/04/2025 US, obste tric, follo w-up No observ ation record ed. [email or web address] [place] [address], [place], [address], 08/04/2025 15:08:50 08/04/20 25 08/04/2025 US, obste tric, follo w-up No observ ation record ed. [email or web address] [address]sha [address], [place], [address], 08/06/2025 10:41:50 08/11/20 25 08/11/2025 non-s tress test No observ ation record ed. [email or web address] [place] [address], [place], [address], 08/11/2025 17:37:52 10/15/20 25 non-s tress test No observ ation record ed. [email or web address] [place] [address], [place], [address], 08/11/2025 17:38:11 08/15/2008/15/2025 non-s tress test No observ ation record ed. [address], [place], [address], 08/21/2025 10:18:57 08/15/2008/15/2025 US, obste tric, bioph ysica l profi le No observ ation record ed. [address], [place], [address], 08/17/2025 10:50:53 08/18/2008/18/2025 US, obste tric, bioph ysica l profi le + non-s tress test No observ ation record ed. [email or web address] [place] [address], [place], [address], 08/18/2025 10:21:39 08/18/2008/18/2025 US, obste tric, bioph ysica l profi le + non-s tress test No observ ation record ed. [email or web address] Esha [address], [place], [address], 08/18/2025 10:35:44 08/18/2008/18/2025 non-s tress test No observ ation record ed. [email or web address] [place] [address], [place], [address], 08/18/2025 17:34:03 08/18/20 non-s tress test No observ ation record ed. [place] [address], [place], [address], 08/18/2025 16:06:09 08/25/20 25 08/25/2025 US, obste tric, bioph ysica l profi le + non-s tress test No observ ation record ed. [email or web address] [place] [address], [place], [address], 08/25/2025 18:52:06 08/25/2008/25/2025 US, obste tric, follo w-up No observ ation record ed. [email or web address] [address], [place], [address], 08/25/2025 15:47:28 08/25/2008/25/2025 non-s tress test No observ ation record ed. [address], [place], [address], 08/25/2025 18:12:15 08/25/20 non-s tress test No observ ation record ed. [address], [place], [address], 08/25/2025 17:21:19 08/30/20 25 08/30/2025 imagi ng/di agnos tic resul t No observ ation record ed. [address] [place] [address], [address], 08/31/2025 18:17:32 09/01/20 25 09/01/2025 non-s tress test No observ ation record ed. [facility] [address] [facility] [address], [place], [address], 09/13/2025 11:32:22 09/01/20 25 09/01/2025 US, obste tric No observ ation record ed. [email or web address] [id number] [facility] [address], [place], [address], 09/02/2025 15:56:01 09/01/20 25 09/01/2025 non-s tress test No observ ation record ed. [address], [place], [address], 09/02/2025 14:32:38 Result Notes None recorded. Problems Name Problem SNOMED Code Status Onset Date Resolution Date Notes Provider Name and Address Organization Details Recorded Time Hypereme sis 318541220 Completed phenerga n now prn Asia ramos [facility] 2 16:43:51 Anxiety in pregnanc y 3189131299 9109 Completed will continue to monitor Asia ramos [facility] 2 16:43:51 Past pregnanc y history of gestatio nal diabetes mellitus 962792416 Completed Early 1 hr GTT @ 20wks 11/03 APPT Asia ramos [facility] 2 16:43:51 Spinal muscular atrophy 2261821 Completed Carrier - Not in contact with FOB. Asia ramos [facility] 2 16:43:51 Anxiety 88888699 Completed prozac Karina ramos [facility] 4 11:00:46 Nausea 116969596 Completed d/c zofran pump 11/08 per pt request Karina ramos [facility] 4 11:00:46 Postpart um hemorrha ge [id number] Completed 2017 with d&c Karina ramos [facility] 4 11:00:46 Normal pregnanc y in multigra jessy 3410501696 01681 Completed 201907/05/2021 Encounte r for supervis ion of other normal pregnanc y, 3rd trimeste r;Record ed Elsewher e: No Locat ion: [facility] S ource: EHR Packer Inspector yvrose: N Natalyati ce ID: 0001 Gigi lable Time: 10:45:00 AM Karina ramos [facility] 10:15:27 Gestatio n period, 37 weeks 15041654 Completed 201907/05/2021 37 weeks gestatio n of pregnanc y;Record ed Elsewher e: No Locat ion: [facility] S ource: EHR Packer Inspector yvrose: N Natalyati ce ID: 0001 Gigi lable Time: 09:00:00 AM Karina ramos, [facility] 10:15:[address] Concept Completed 201907/05/2021 Matern care for abnlt fetl hrt rate or rhym, 3rd tri, unsp;Rec orded Elsewher e: No Locat ion: [facility] S ource: EHR Packer Inspector yvrose: N Natalyati ce ID: 0001 Gigi lable Time: 08:45:00 AM Karina ramos [facility] 10:15:29 Gestatio nal diabetes mellitus 95003619 Completed 201907/05/2021 Gestatio nal diabetes mellitus in pregnanc y, diet controll ed;Recor ded Elsewher e: No Locat ion: [facility] S ource: EHR Packer Inspector yvrose: N Natalyati ce ID: 0001 Gigi lable Time: 11:45:00 AM Karina ramos [facility] 10:15:25 Gestatio n period, 38 weeks 74862625 Completed 201907/05/2021 38 weeks gestatio n of pregnanc y;Record ed Elsewher e: No Locat ion: [facility] S ource: EHR Packer Inspector yvrose: N Natalyati ce ID: 0001 Gigi lable Time: 11:30:00 AM Karina ramos [facility] 09/08/202 1 10:15:13 Amenorrh ea 40031591 Completed 202007/10/2021 Tammi Jones null, [facility] 1 13:08:35 Pregnanc y 05596828 Completed 202003/29/2022 Karina Burroughs null, [facility] 4 11:00:49 Pregnanc y 97253295 Completed 202304/22/2024 Karina Burroughs null, [facility] 4 11:00:49 Headache 61758680 Active 2023 Karina Burroughs null, [facility] 5 16:19:28 Pregnanc y 75950222 Active 2023 Karina Burroughs null, [facility] 5 16:19:28 Uncompli cated moderate persiste nt asthma 333008777 Active 2024 albutero l prn Shawn Bradley MD [address], [place], [address], [facility] 5 13:08:36 Anxiety 33704791 Active 2024 sertrali ne started 03/02/25 changed to prozac 10 on Shawn Bradley MD [address], [place], [address], [facility] 5 17:05:48 Nausea and vomiting 49579473 Active 2024 Shawn Bradley MD [address], [place], [address], [facility] 5 13:20:27 Placenta circumva llata 9856239 Active 2024 32wk growth us Ryann Castro null, [facility] 5 09:44:35 Frequent headache 893958633 Active 2024 transpor t to [facility] 05/21, discharg e 05/23 [facility] referral faxed 05/24 [facility] consult pending per KAJAL Pittman [facility] unable to see pt due to insuranc e 05/[address] 07/05/25 Level US & Consult (see MFM consult zayas recommen dations ) regimen prn Imitrex 50mg for acute migraine , vitamin B2 (Ribofla mesfin) 400mg, Coenzyme q10 300mg and magnesiu m oxide 200 to 600mg daily. minimize use of Excedrin or Tylenol to no more than 2-3 times a week. Ryann ramos [facility] 5 10:55:26 Abnormal placenta affectin g manageme nt of mother 28258800 Active 2024 [facility] serial growth us Ryann ramos [facility] 5 10:46:25 Iron deficien cy anemia 36663517 Active 2024 [facility] tx venofer 200mg x1 HGB 10.6 Ryann ramos [facility] 5 15:21:25 Gestatio nal diabetes mellitus 73022455 Active 2024 checking bs QID - ruled in GDM Referral faxed to [facility] 07/07 Ryann ramos [facility] 5 14:36:52 Notes:Order faxed to vascula r access 08/10 for PICC line, and home health already caring for pt. Vladimir RDZ at [phone] Problem Notes None recorded. Procedures Surgical History Date Name Laterality Status Provider Name and Address Organization Details Recorded Time 025 SALPINGECTOMY, LAPAROSCOPIC (SURG) completed Not Available [facility] 09/06/2025 11:19:17 025 Date of Last Pap Smear completed Karina Burroughs [facility] 01/28/2025 11:19:42 024 Nexplanon Removal completed Shawn Bradley MD [address], [place], [address], [facility] 08/05/2024 15:09:58 024 Control Implant Insertion completed Anju Mcnamara CNM [address], [place], [address], [facility] 05/08/2024 17:59:34 024 cholecystectomy completed Karina Burroughs [facility] 03/31/2025 09:18:57 018 Dilation and Curettage completed Karina Burroughs [facility] 07/05/2021 10:17:50 Imaging Results None recorded. Procedure Notes None recorded. Medical Equipment None Reported. Allergies Allergen ID Allergen Name Allergen Category Reaction Reaction Severity Criticality Documentation Date Start Date Code Code System Note Provider Name and Address Organization Details Recorded Time 76183 terbutali ne medicatio n anaphylax is Not available Not available 01/27/20252021 04615 RxNorm Karina ramos, [facility] 16:19:27 09461 amoxicill in medicatio n Not available Not available Not available 09/10/2025 723 RxNorm Not Available gene - External Data Service - prod 16:39:37 66447 terbinafi ne medicatio n anaphylax is Not available [facility] 09/10/20252024 79463 RxNorm Not Available gene - External Data [...] SPRAY(S) IN EACH NOSTRIL TWICE DAILY NEEDED 03/20 /2025 completed Not Available Not Available [...] Prescrib ed Elsewher e: Yes Loca [facility] odify By: prabhjot Lee r [...] n (supplie d by office) insert lot [id number] Exp 01/2026 Not Available Not Available Not Available 28 mg iron-800 mcg tablet 07/05 completed Prescrib ed Elsewher e: Yes [facility] By: prabhjot Lee r DateTime : 01/14/20 10:45:00 AM Not Available Not Available Not Available lidocaine 5 % topical ointment APPLY OINTMENT EXTERNAL LY TO RIBS THREE TIMES DAILY NEEDED 01/14 completed Not Available Not Available Not Available 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 08/25/2025 15:41:08 Date Recorded Body height Body mass index (BMI) Body weight Systolic And Diastolic Provider Name and Address Organization Details Last Updated DateTime 08/25/2025 162.56 cm 31.6 kg/m2 51032 g 108/72 mm[Hg] Emma Dykes [facility] 08/25/2025 17:18:37 Social History Question Answer Notes LastModified by Organizat ion Details LastModified Time Tobacco Smoking Status Former Smoker Karina ramos, [facility] 07/05/2021 09:06:21 If You Are , What Was Your Level Of Alcohol Consumption Prior To ? Occasional [email or web address] Information not available 03/31/2025 Are You Blind Or Do You Have Difficulty Seeing? No [email or web address] Information not available 07/05/2021 What Is Your Level Of Caffeine Consumption? Heavy [email or web address] Information not available 07/05/2021 In The 14 Days Before Symptom Onset, Have You Had Close Contact With A Laboratory-confir med COVID-19 While That Case Was Ill? No [email or web address] Information not available 07/05/2021 In The 14 Days Before Symptom Onset, Have You Had Close Contact With A Person Who Is Under Investigation For COVID-19 While That Person Was Ill? No [email or web address] Information not available 07/05/2021 Have You Been To An Area Known To Be High Risk For COVID-19? No [email or web address] Information not available 07/05/2021 Are You Deaf Or Do You Have Serious Difficulty Hearing? No [email or web address] Information not available 07/05/2021 What Type Of Diet Are You Following? REGULAR [email or web address] Information not available 07/05/2021 Which Illicit Or Recreational Drugs Have You Used? Marijuana [email or web address] Information not available 07/05/2021 Have You Ever Been Counseled For Unhealthy Alcohol Use? No [email or web address] Information not available 07/05/2021 Do You Use Your Seat Belt Or Car Seat Routinely? Yes [email or web address] Information not available 07/05/2021 Do You Have Smoke And Carbon Monoxide Detectors In Your Home? Yes [email or web address] Information not available 07/05/2021 Do You Use Sunscreen Routinely? Yes [email or web address] Information not available 07/05/2021 Has Tobacco Cessation Counseling Been Provided? No Information not available 07/05/2021 Have You Used IV Drugs? No [email or web address] Information not available 07/05/2021 Do You Have Difficulty Walking Or Climbing Stairs? No [email or web address] Information not available 12/06/2021 Sex: Unknown Functional Status Question Answer Note LastModified by [employer] ion Details LastModified Time Do you use any illicit or recreational drugs? Yes [email or web address] Information not available 07/05/2021 Do you or have you ever used any other forms of tobacco or nicotine? Yes [email or web address] Information not available 07/05/2021 What is your level of alcohol consumption? None Information not available 03/31/2025 Do you or have you ever used smokeless tobacco? Never used smokeless tobacco [email or web address] Information not available 07/05/2021 Are you able to walk independently without assistance or assistive devices? YESWOREST [email or web address] Information not available 07/05/2021 Are you able to care for yourself independently? Yes Information not available 12/06/2021 Do you have difficulty dressing, bathing, grooming, or toileting? No [email or web address] Information not available 12/06/2021 Do you or have you ever used e-cigarettes or vape? Current user of electronic cigarettes [email or web address] Information not available 07/05/2021 What is your exercise level? Occasional [email or web address] Information not available 07/05/2021 Mental Status Question Answer Note LastModified by Organization D etails LastModified Time Do you feel stressed (tense, restless, nervous, or anxious, or unable to sleep at night)? [id number] [email or web address] Information not available 07/05/2021 Family History Relationship Description Onset Age of this Age Resolved Age Notes LastModified by Organization Details LastModified Time Father No current problems or disability [email or web address] Not available 05/2021 09:06:31 Mother No current problems or disability [email or web address] Not available 05/2021 09:06:31 Medical History Condition [...] ICD10 Code Diagnosis IMO Codes Diagnosis Note [id number] Anju Mcnamara [facility] [address] [address] 07/05/2021 09:58:05 07/05/2021 11:16:35 Pityriasis versicolor 91245967 B36.0 also wash with selsum blue shampoo Vaginitis 87564996 N76.0 Nausea 992016950 R11.0 Contracept ion care management 020667721 Z30.9 [id number] Betsey Joya [facility] [address],[place] [address] 08/02/2021 10:30:44 08/04/2021 10:07:43 Severe hyperemesis gravidarum 319224265 O21.1 Pt has not held anything down for more than 24 hours. Sent to ER for hydration and evaluation . We have discussed dietary precaution s. Recommend very small frequent meals. Avoid greasy, spicy or trigger foods. I do believe she may benefit from home health for fluids and IV antiemetic s. [id number] Anju Mcnamara [facility] [address],[place] [address] 08/08/2021 10:22:11 08/08/2021 13:42:05 Depressive disorder 65732172 F32.A in an emergency mercy info given and kettler reminder, if increased thoughts or plan to hospital for immediate care, pt agrees, continue counseling , will try lexapro once can keep down fluids, se reviewed Gynecologi c examination 11097875 Z01.419 Z11.3 Z11.8 Amenorrhea 58084292 N91. 2 plan NOB and first look Nausea and vomiting 1693 1999 R11.2 unable to leave urine, unable at this time to go to LD, encouraged to go to LD for hydration, working on home health services, [id number] Shawn Bradley MD [place] [address],[facility] [place] [address] 08/08/2021 10:21:08 08/08/2021 10:53:33 Routine care 225299135 Z34.91 Z3A.08 [id number] Anju Mcnamara [facility] [address],[place] [address] 09/13/2021 14:51:52 09/14/2021 13:44:23 test positive 155636459 Z32.01 Routine an tenatal care 876919302 Z34.91 [id number] Shawn Bradley MD [place] [address],[place] [address] 09/13/2021 15:35:32 09/13/2021 16:26:27 screening 204659235 Z36.82 [id number] Betsey Joya [facility] [address],[place] [address] 10/09/2021 12:26:15 10/09/2021 17:39:00 Urinary symptoms 248921072 R39.9 Fatigue 86885709 R53.83 Venereal d isease screening 976595123 Z11.3 70731 Anju Mcnamara [place] [address] [address] 10/16/2021 11:57:23 10/16/2021 12:48:11 Routine care 836475679 Z34.91 [id number] Anuj Mcnamara [facility] [address],[place] [address] 11/03/2021 11:32:21 11/03/2021 13:52:13 Routine care 597263698 Z34.91 [id number] Shawn Bradley MD [place] [address],[place] [address] 11/03/2021 11:31:37 11/03/2021 12:34:34 screening for malformation 475924759 Z36.3 [id number] Anju Mcnamara [facility] [address],[place] [address] 12/06/2021 14:46:58 12/06/2021 16:07:59 Routine care 027840232 Z34.91 Iron defic iency anemia 92189505 D50.9 [facility] 70943753 F41.9 [id number] Shawn Bradley MD [place] [address],[place] [address] 12/06/2021 14:46:10 12/06/2021 15:18:30 condition affecting obstetrical care of mother 685069487 O35.8XX0 Z3A.25 [id number] Anju Mcnamara [facility] [address],[place] [address] 12/22/2021 11:04:34 12/22/2021 11:32:13 Routine care 550861801 Z34.91 [id number] Shawn Bradley MD [place] [address],[place] [address] 01/03/2022 14:21:04 01/03/2022 15:48:26 Uterine size for dates discrepancy 235203921 O26.843 Z3A.29 [id number] Anju Mcnamara [facility] [address],[place] [address] 01/03/2022 14:21:33 01/03/2022 15:13:41 Routine care 043664834 Z34.91 [id number] Anju Mcnamara [facility] [address],[place] [address] 01/17/2022 16:53:11 01/17/2022 17:24:14 Routine care 554598192 Z34.91 Persistent cough 5176857 02 R05.3 17582 Betsey Joya [facility] [address],[place] [address] 02/06/2022 09:22:49 02/06/2022 09:55:25 Routine care 180604267 Z34.93 [id number] Shawn Bradley MD [place] [address],[place] [address] 02/13/2022 14:43:16 02/13/2022 15:26:49 Poor growth affecting management 728959953 O36.5930 Z3A.35 [id number] Anju Mcnamara [facility] [address],[place] [address] 02/16/2022 15:13:14 02/16/2022 15:58:27 Routine care 652813449 Z34.91 [id number] Anju Mcnamara [facility] [address],[place] [address] 03/02/2022 15:02:03 03/02/2022 15:28:58 Routine care 939832405 Z34.91 [id number] BOLA Miller [place] [address],[place] [address] 03/27/2022 10:37:37 03/27/2022 11:14:18 Mixed anxiety and depressive disorder 288468901 F41.8 Chest pain 20286033 R07. 9 She has a hx of [...] for anxiety/de pression.Bianca peng has a driver helper that will take her to [facility] (vitals are WNL, no acute distress noted).She has no thoughts of harming herself or others.She will call the office to schedule an appointmen t to be seen after ED evaluation . We discussed at that time can start therapy for depression /anxiety. RTC after cleared by ED Time spent with the patient was 20 minutes [id number] Shawn Bradley MD [place] [address],[place] [address] 04/16/2022 15:11:58 04/16/2022 17:11:09 Mixed anxiety and depressive disorder 823038360 F41.8 this patient is a 22-year-ol d [...] ce. More than 50% was counseling . [id number] Shawn Bradley MD [place] [address],[place] [address] 04/16/2022 16:43:28 04/16/2022 17:34:26 Abnormal uterine bleeding 0092331785 9100 N93.9 [id number] BOLA Miller [place] [address],[place] [address] 06/19/2022 17:24:32 06/19/2022 18:03:44 Abnormal uterine bleeding [id number] 9100 N93.9 We discussed likely spotting is [...] of plan of care. Pain in pelvis 59842031 R10.2 Contracept ion care management 428902704 Z30.9 Irregular periods 071926 07 N92.6 Venereal d isease screening 635636467 Z11.3 Anxiety 78540560 F41.9 [id number] Shawn Bradley MD [place] [address],[place] [address] 10/02/2023 13:44:25 10/02/2023 14:07:54 screening 039325843 Z36.82 Z36.87 Z3A.11 [id number] Anju Mcnamara [facility] [address],[place] [address] 10/02/2023 13:46:45 10/02/2023 14:50:25 Amenorrhea 64084406 N91.2 plan NOB and first look NIPT and labs todaywants tubal ligation after delivery Gynecologi c examination 60211614 Z01.419 Z11.3 Z11.8 Nausea and vomiting 1693 2000 R11.2 [id number] [facility] [address],[place] [address] 11/01/2023 11:17:59 11/01/2023 13:01:44 Gestation period, 16 weeks 39288997 Z3A.16 Anxiety 46157689 F41.9 [id number] Shawn Bradley MD [place] [address],[place] [address] 11/27/2023 14:04:37 11/27/2023 15:16:15 screening for malformation 359101873 Z36.3 Z3A.19 [id number] Anju Mcanmara [facility] [address],[place] [address] 11/27/2023 14:13:33 11/27/2023 15:31:00 Routine care 227317723 Z34.91 [id number] [facility] [address],[place] [address] 12/25/2023 14:51:56 12/25/2023 15:52:45 Routine care 606216662 Z34.91 [id number] Anju Mcnamara [facility] [address],[place] [address] 02/14/2024 14:13:14 02/14/2024 16:07:12 Routine care 097248170 Z34.91 [id number] Anju Mcnamara [facility] [address],[place] [address] 03/27/2024 11:47:21 03/27/2024 12:30:07 Routine care 959008383 Z34.91 [id number] Anju Mcnamara [facility] [address],[place] [address] 05/08/2024 14:54:41 05/11/2024 09:00:41 Screening procedure 16276967 Z13.9 Implantati on of subcutaneous contraceptive 614368492 Z30.46 reviewed se risks and benefits, bandage until skin closes, pressure bandage x 24 hourswill schedule bilateral salpingect kateryna with dr. bradley care 64325604 8 Z39.2 continue multivitam in Sterilizat ion requested 397158083 Z30.2 [id number] Shawn Bradley MD [place] [address],[place] [address] 08/05/2024 13:57:53 08/05/2024 15:11:54 Contraception care management 389587653 Z30.9 Nexplanon removed without complicati ons. She tolerated well. [id number] MD Shun Galarza [address],[place] [address] 01/14/2025 11:51:17 01/14/2025 12:53:24 Uncertain viability of 388053023 Z3A.01 [id number] Shawn Bradley MD [place] [address],[place] [address] 01/14/2025 11:51:38 01/15/2025 09:38:25 Pain in pelvis 28421360 R10.2 25-year-ol d female presents for ER [...] care. She will return in 2 weeks. [id number] Shawn Bradley MD [place] [address],[place] [address] 01/27/2025 14:42:15 01/27/2025 15:35:58 Abdominal pain in 158262946 O99.891 Z3A.01 [id number] Shawn Bradley MD [place] [address],[place] [address] 01/27/2025 14:55:24 01/27/2025 16:41:41 Amenorrhea 29568442 N91.2 Z32.01 this patient is a 25-year-ol [...] begin routine care at her next visit. [id number] Shawn Bradley MD [place] [address],[facility] [place] [address] 02/04/2025 10:09:23 02/04/2025 10:48:21 Headache 22672735 R51.9 Nausea and vomiting 1693 1999 R11.2 [...] to labor and delivery for IV fluids. [id number] Shawn Bradley MD [place] [address],[place] [address] 03/02/2025 12:17:19 03/02/2025 12:53:50 screening 257485562 Z36.82 Z3A.11 2663027464 [id number] MD Shun Galarza [address],[place] [address] 03/02/2025 12:17:40 03/02/2025 15:40:54 Anxiety 29188087 F41.9 51248 care status 24 0792815 Z34.81 68873399 [id number] Shawn Bradley MD [place] [address],[place] [address] 03/08/2025 10:47:16 03/08/2025 11:13:32 Complication occurring during 419138626 O99.891 Z3A.13 7513928384 [id number] Shawn Bradley MD [place] [address],[place] [address] 03/12/2025 15:59:57 03/13/2025 11:16:32 Urinary symptoms 051170464 R39.9 62981 Anxiety 17461715 F41.9 82983 Headache 64934694 R51.9 G89.29 417081454 [id number] Anju Mcnamara [facility] [address],[place] [address] 03/31/2025 08:58:49 03/31/2025 12:05:58 Urinary symptoms 699270989 R39.9 55047 Yeast detected 319009124 B37.9 0511105823 Nausea 540844102 R11.0 12347 [id number] MD Shun Galarza [address],[place] [address] 04/20/2025 16:29:09 04/20/2025 17:09:27 Uncertain viability of 574208516 O36.80X1 Z3A.19 5928600 [id number] MD Shun Galarza [address],[place] [address] 04/22/2025 09:24:41 04/26/2025 09:10:43 Acute back pain with sciatica 371343275 M54.40 63452261 Migraine w ithout aura, not refractory 166238058 G43.115 9433504 care status 24 2772453 Z34.82 38948530 [id number] Shawn Bradley MD [place] [address],[place] [address] 04/28/2025 13:46:05 04/28/2025 15:08:40 Ultrasound scan - obstetric 815697070 Z36.3 Z3A.20 84950 [id number] [facility] [address],[place] [address] 04/28/2025 13:46:26 04/28/2025 15:22:57 Gestation period, 20 weeks 82000944 Z3A.20 4705780 [id number] Shawn Bradley MD [place] [address],[place] [address] 05/28/2025 13:46:14 05/28/2025 14:40:01 Abnormal placenta affecting management of mother 10089826 O43.192 Z3A.24 79003015 [id number] [facility] [address],[place] [address] 05/28/2025 13:46:33 05/28/2025 15:52:47 Gestation period, 24 weeks 365470085 Z3A.24 7585223 cont pnv [id number] Shawn Bradley MD [place] [address],[place] [address] 06/23/2025 13:43:13 06/25/2025 17:52:18 [id number] Anju Mcnamara CNM [place] [address],[place] [address] 06/23/2025 13:43:28 06/23/2025 15:58:03 Heartburn 67492395 R12 35059 Gestation period, 28 weeks 47613446 Z3A.28 2875333 [id number] Shawn Bradley MD [place] [address],[place] [address] 07/07/2025 10:14:22 07/07/2025 11:00:23 Anomaly of placenta 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 Z3A.30 9566321 [id number] [facility] [address],[place] [address] 07/07/2025 10:14:33 07/07/2025 11:38:54 Gestation period, 30 weeks 17930652 Z3A.30 8129404 cont pnv Nausea 713320621 R11.0 51375 Gestationa l diabetes mellitus 21754891 O24.419 27518404 [id number] [facility] [address],[place] [address] 07/21/2025 09:28:54 07/21/2025 12:36:06 Pain in pelvis 06455155 R10.2 438839 Gestation period, 32 weeks 7291619 Z3A.32 7113500 [id number] Shawn Bradley MD [place] [address] [place] [address] 08/04/2025 14:02:59 08/04/2025 15:06:33 Gestational diabetes mellitus 67164199 O24.410 O43.103 O43.113 Z3A.34 95268114 [id number] [facility] [address] [place] [address] 08/04/2025 14:21:57 08/04/2025 15:26:03 Gestation period, 34 weeks 86877333 Z3A.34 0900347 Pruritic d isorder of skin 9335541393 L29.9 54711 plan labs today, ursadiol BID [id number] Anju Mcnamara CNM [place] [address] [place] [address] 08/11/2025 14:51:38 08/11/2025 17:16:44 Gestational diabetes mellitus 22638574 O24.414 86194129 [id number] [facility] [address],[place] [address] 08/11/2025 16:25:59 08/11/2025 17:46:32 Gestational diabetes mellitus 72699468 O24.414 44326570 [id number] Shawn Bradley MD [place] [address],[place] [address] 08/18/2025 09:40:51 08/18/2025 10:15:47 Gestational diabetes mellitus 21696073 O24.414 Z3A.36 48380978 [id number] [facility] [address],[place] [address] 08/18/2025 09:41:06 08/18/2025 11:24:04 Gestation period, 36 weeks 43273416 Z3A.36 5654183 cont pnv [id number] [facility] [address],[place] [address] 08/18/2025 09:41:16 08/18/2025 16:17:31 Gestational diabetes mellitus class A2 26858162 O24.414 75217321 [id number] Shawn Bradley MD [place] [address],[place] [address] 08/25/2025 14:26:29 08/25/2025 15:14:02 Gestational diabetes mellitus 17549744 O24.414 20316683 [id number] [facility] [address],[place] [address] 08/25/2025 14:26:57 08/25/2025 15:53:52 Gestation period, 37 weeks 40081199 Z3A.37 0574583 continue vitamin [id number] [facility] [address],[place] [address] 08/25/2025 16:48:00 08/25/2025 17:20:42 Gestational diabetes mellitus 58721113 O24.419 95308755 [id number] Shawn Bradley MD [place] [address] [address] 09/13/2025 15:30:32 09/13/2025 20:43:16 Health Concerns Section Related Observation LastModified by Organization Detai ls LastModified Time None Recorded Concern Status LastModified by Organization Details LastModified Time None Recorded Advance Directives Directive None Recorded Payers Insurance Date Sequence Insurance Name Policy Number Policy Roberts Covered Member ID Roberts Member ID Guarantor Name 09/10/2025 1 [facility] (MEDICAID HMO) [id number] Yuni Mejia [id number] Yuni Mejia Notes Date Note Type Note Provider Name and Address Organization Details Recorded Time 08/25/2025 text/html Generic HPI TemplateReported by Patient Anju EHilda Mcnamara CNM [address], [place], [address], [facility] 08/25/2025 15:51:24 OBGyn Episode Ob Episode Information Episode Created Date Number of Fetuses Patient Bloodtype Patient rh Status Prepregnancy Weight lbs Domestic Partner Domestic Partner Phone Father Name Director Of Industrial Relations Status 03/14/20 20 1 CLOSED Fetus Data [...] Domestic Partner Domestic Partner Phone Father Name Director Of Industrial Relations Status 07/05/20 21 1 CLOSED Fetus Data First Name Last Name Admitted to NICU Weight (g) Sex Living Outcome Pediatric Complications Fetus ID Race Codes Race Delivery Type , Spontane ous 07620 Jun Calculation Initial Jun Date Initial Exam [...] Domestic Partner Domestic Partner Phone Father Name Director Of Industrial Relations Status 09/13/20 21 1 B Positive 103 diontre silva CLOSED Fetus Data First Name Last Name Admitted to NICU Weight (g) Sex Living Outcome Pediatric Complications Fetus ID Race Codes Race Delivery Type 3316.89 15 F true Full Term terminal meconium 52754 Vaginal Delivery Problems Problem Notes EIF in [place] noted03/05 PIH WNL, UC WNL Problem Name Start Date End Date Resolution Snomed Code Not e Spinal muscular atrophy 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 Past history of gestational diabetes mellitus 027136698 Early 1 hr GTT @ 20wks 11/03 APPT Hyperemesis 600741794 phenerga n now prn Anxiety in 209789826 [address]343 will continue to monitor Jun Calculation Initial [...] Date Ultra Sound Latest Days Gestation 0 [email or web address] 09/14/2021 03/16/20 22 0 Pre- Flowsheet Flowsheet [...] Weight in lbs Pre/Post Dialysis Refused Weight 110.845061539554 BP Diastolic BP Location Tested BP Systolic [...] Weight in lbs Pre/Post Dialysis Refused Weight 119.053830175438 BP Diastolic BP Location Tested BP Systolic [...] Weight in lbs Pre/Post Dialysis Refused Weight 120.745083571577 BP Diastolic BP Location Tested BP Systolic [...] Weight in lbs Pre/Post Dialysis Refused Weight 124.425809847128 BP Diastolic BP Location Tested BP Systolic [...] Weight in lbs Pre/Post Dialysis Refused Weight 137.762636800694 BP Diastolic BP Location Tested BP Systolic [...] Weight in lbs Pre/Post Dialysis Refused Weight 145.8440664999 BP Diastolic BP Location Tested BP Systolic [...] Weight in lbs Pre/Post Dialysis Refused Weight 152.815141482639 BP Diastolic BP Location Tested BP Systolic [...] Weight in lbs Pre/Post Dialysis Refused Weight 150.967838003505 BP Diastolic BP Location Tested BP Systolic [...] Weight in lbs Pre/Post Dialysis Refused Weight 157.349937876518 BP Diastolic BP Location Tested BP Systolic [...] Weight in lbs Pre/Post Dialysis Refused Weight 158.196351471091 BP Diastolic BP Location Tested BP Systolic [...] Weight in lbs Pre/Post Dialysis Refused Weight 163.136571060542 BP Diastolic BP Location Tested BP Systolic [...] Weight in lbs Pre/Post Dialysis Refused Weight 134.837443165496 BP Diastolic BP Location Tested BP Systolic [...] At Estimated Date of Delivery false Thalassemia (Armenian, Zambian, Mediterranean, Or Background): MCV < 80 false Neural Tube Defect (Meningom yelocele, Spina Bifida, Or Anencephaly) false Congenital Heart Defect false Down Syndrome false Erick-Sachs (eg, Pentecostalism, Cajun, Danish-[place] Islander) f alse Lizzette Disease false Sickle Cell Disease Or Trait () false Hemophilia Or Other Blood Disorders false Muscular Dystrophy false Cystic Fibrosis false [facility] Chorea false Intellectual Disability/Autism false If Yes, [...] 2 Induce d Regional-Ep idural 39 false Naima Anju KRISTEN Spinal muscular atrophy Discharge Information Feeding Method Contraceptive Method Maternal HG B and HCT Levels Ob Episode Information Episode Created Date Number of Fetuses Patient Bloodtype Patient rh Status Prepregnancy Weight lbs Domestic Partner Domestic Partner Phone Father Name Director Of Industrial Relations Status 07/05/20 21 1 CLOSED Fetus Data First Name Last Name Admitted to NICU Weight (g) Sex Living Outcome Pediatric Complications Fetus ID Race Codes Race Delivery Type 3175.14 4 F Full Term 79164 Vaginal Delivery Jun Calculation Initial Jun Date [...] Domestic Partner Domestic Partner Phone Father Name Director Of Industrial Relations Status 11/01/19 24 1 B Positive 126 Virgil Daugherty CLOSED Fetus Data First Name Last Name Admitted to NICU Weight (g) Sex Living Outcome Pediatric Complications Fetus ID Race Codes Race Delivery Type 3401.94 M true Full Term 22011 Vaginal Delivery Problems Problem Notes gallbladder attack/pain - re ferral to Gen Surg Dr. Boles sent 11/08- pt never went because pain stopped Problem Name Start Date End Date Resolution Snomed Code Not e Anxiety 43648196 prozac Nausea 448510750 d/c zofran pump 11/08 per pt request hemorrhage 39506230 hx 2017 with d&c Jun Calculation Initial [...] Weight in lbs Pre/Post Dialysis Refused Weight 130.889879879620 BP Diastolic BP Location Tested BP Systolic [...] Weight in lbs Pre/Post Dialysis Refused Weight 136.401803665019 BP Diastolic BP Location Tested BP Systolic [...] Weight in lbs Pre/Post Dialysis Refused Weight 144.930278293887 BP Diastolic BP Location Tested BP Systolic [...] Weight in lbs Pre/Post Dialysis Refused Weight 154.611466856107 BP Diastolic BP Location Tested BP Systolic [...] Weight in lbs Pre/Post Dialysis Refused Weight 157.633033174941 BP Diastolic BP Location Tested BP Systolic [...] Domestic Partner Domestic Partner Phone Father Name Director Of Industrial Relations Status 03/02/20 1 B Positive 164 OPEN Fetus Data First Name Last Name Admitted to NICU Weight (g) Sex Living Outcome Pediatric Complications Fetus ID Race Codes Race Delivery Type 66105 Problems Problem Notes SDH form completed 5GI consult Tachycardia Holter monitor 72 order- pt sent back on 03-27-25 Cardiology referral faxed per Dr Martínez office calling pt 04/21 to schedule consult scheduled 05/11 11:15AM Problem Name Start Date End Date Resolution Snomed Code Not e Uncomplicated moderate persistent asthma 03/02/2025 785396394 albuterol prn Abnormal placenta affecting management of mother 05/04/2025 04895790 [facility]CI serial grow th us Iron deficiency anemia 05/25/2025 63559026 [facility] tx [place] 200mg x1 HGB 10.6 Nausea and vomiting 03/02/2025 09408669 Anxiety 03/02/2025 21148886 sertralin e started 03/02/25 changed to prozac 10 on Gestational diabetes mellitus 07/08/2025 51498412 checking bs QID - ruled in GDM Referral faxed to [facility] 07/07 Frequent headache 05/03/2025 426106148 [place] [facility] 05/21, discharge 05/23 [facility] referral faxed 05/24 [facility] Neurology consult pending per KAJAL Pittman [facility]- Neuro [facility] unable to see pt due to insurance 05/25[facility] 07/05/25 Level US & Consult (see [facility] consult zayas recommendations ) regimen prn Imitrex 50mg for acute migraine, vitamin B2 (Riboflavin) 400mg, Coenzyme q10 300mg and magnesium oxide 200 to 600mg daily. minimize use of Excedrin or Tylenol to no more than 2-3 times a week. 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/2025 1134621 32wk growth us Jun Calculation Initial Jun [...] Weight in lbs Pre/Post Dialysis Refused Weight 158.629608963677 BP Diastolic BP Location Tested BP Systolic [...] Weight in lbs Pre/Post Dialysis Refused Weight 158.353807453180 BP Diastolic BP Location Tested BP Systolic [...] Weight in lbs Pre/Post Dialysis Refused Weight 162.759338536730 BP Diastolic BP Location Tested BP Systolic BP Type 78 123 Fetus Heart Rate Present A 148 Fetus Movement A Yes Comments Patient is having having ronny n, cramping and vaginal discharge. went to ed exam done cultures and rx sent, ?FM, await optometry professor results rfilled zofran, precautions and education f/u [...] Type Weight in lbs Pre/Post Dialysis Refused 168.356132966139 BP Diastolic BP Location Tested BP Systolic [...] Type Weight in lbs Pre/Post Dialysis Refused 169.617564593302 BP Diastolic BP Location Tested BP Systolic [...] Weight in lbs Pre/Post Dialysis Refused Weight 175.850087821741 BP Diastolic BP Location Tested BP Systolic [...] Weight in lbs Pre/Post Dialysis Refused Weight 182.673339329870 BP Diastolic BP Location Tested BP Systolic [...] Weight in lbs Pre/Post Dialysis Refused Weight 181.894691096332 BP Diastolic BP Location Tested BP Systolic BP Type 73 L arm 131 sitting Fetus Heart Rate Present Fetus Movement A Yes Comments viral URI testied neg at urg ent care, nausea resolved, efw 68%, +FM plan education and precautions f/u 2 weeks diagnosed GDM, plan mud logger, gave list reviewed protein vs carb Flowsheet Date 07/21/2025 Gibson Score Blood Edema Fundus Height Fundus Units Glucose Ketones Leukocytes Nitrite Labor Signs Protein Cervic Dilation Cervic Effacement Cervic Station Type Weight in lbs Pre/Post Dialysis Refused Weight 181.389366156830 BP Diastolic BP Location Tested BP Systolic BP Type 78 L arm 127 sitting Fetus Heart Rate Present A 150 Fetus Movement A Yes Comments rpt urine culture +FM review ed blood sugars, meets with mud logger today, precautions and education f/u 2 weeks [...] Weight in lbs Pre/Post Dialysis Refused Weight 181.688165440648 BP Diastolic BP Location Tested BP Systolic [...] Weight in lbs Pre/Post Dialysis Refused Weight 183.388021396910 BP Diastolic BP Location Tested BP Systolic [...] Type Weight in lbs Pre/Post Dialysis Refused 184.567846070371 BP Diastolic BP Location Tested BP Systolic [...] Type Weight in lbs Pre/Post Dialysis Refused 184.797174894190 BP Diastolic BP Location Tested BP Systolic [...] Type Weight in lbs Pre/Post Dialysis Refused 184.148636204168 BP Diastolic BP Location Tested BP Systolic [...] Weight in lbs Pre/Post Dialysis Refused Weight 184.344805156852 BP Diastolic BP Location Tested BP Systolic [...] Present Fetus Movement Comments Flowsheet Date 09/06/2025 [place] Score Blood Edema Fundus Height Fundus Units [...]
--- OUTSIDE RECORDS SUMMARY | 2025-09-14 00:23 | XMS_ITS | Continuity of Care Document ---
Author Organization [facility] Address [address] [place] [address] Care Team Providers Care Inside Sales Name Role Phone VIVIAN ESTRADAISSA Primary Care Provider Assessment Encounter Date Assessment Date Assessment LastModified by Organization Details LastModified Time 06/23/2025 06/23/2025 Patient is __28_weeks . Discussed plan. Not available 06/23/2025 15:46:20 Plan of Treatment Reminders Order Date Submit Date Provider Last Modified By Organization Details Last Modified Time Details Appointments None recorded. Lab None recorded. Referral None recorded. Procedures None recorded. Surgeries None recorded. Imaging None recorded. Medication Orders Protonix 40 mg tablet,del ayed release 2024 025 [facility] [address] [place], [address], 15:10:36 Patient TargetsNo targets recorded. Patient InstructionsNo instructions recorded. Reason for Referral None Reported. Results Created Date Observation Date Name Description Value Unit Range Abnormal Flag Note LastModifiedBy Organization Detail LastModifiedTime 03/06/2003/06/2025 [UNIT Y] ANEUP LOIDY NIPT fraction 5.7% normal Not Available Medina Mcbride[address], [place], [address], 03/06/2025 03:58:26 03/06/20 25 03/06/2025 [UNIT Y] ANEUP LOIDY NIPT sex chromosome aneuploidy NOT DETECT ED normal Not Available [facility] cast[facility] [address], [place], [address], 03/06/2025 03:58:26 03/06/20 25 03/06/2025 [UNIT Y] ANEUP LOIDY NIPT monosomy X LOW RISK <1 in 10,000 normal Not Available [facility] [address], [place], [address], 03/06/2025 03:58:26 03/06/20 25 03/06/2025 [UNIT Y] ANEUP LOIDY NIPT trisomy 13 LOW RISK <1 in 10,000 normal Not Available [facility] [address], [place], [address], 03/06/2025 03:58:26 03/06/20 25 03/06/2025 [UNIT Y] ANEUP LOIDY NIPT trisomy 18 LOW RISK <1 in 10,000 normal Not Available [facility] [address], [place], [address], 03/06/2025 03:58:26 03/06/20 25 03/06/2025 [UNIT Y] ANEUP LOIDY NIPT trisomy 21 LOW RISK <1 in 10,000 normal Not Available [facility] [address], [place], [address], 03/06/2025 03:58:26 03/06/20 25 03/06/2025 [UNIT Y] ANEUP LOIDY NIPT sex FEMALE normal Not Available [facility] [address], [place], [address], 03/06/2025 03:58:26 03/06/20 25 03/06/2025 [UNIT Y] ANEUP LOIDY NIPT gestation SINGLE TON normal Not Available [facility] [address], [place], [address], 03/06/2025 03:58:26 03/06/20 25 03/06/2025 [UNIT Y] ANEUP KIANA NIPT for detailed report, see pdf See PDF normal Not Available [facility] [address], [place], [address], 03/06/2025 03:58:26 03/02/20 25 03/02/2025 CULTU RE: URINE result report SEE RESULT S BELOW Test: Cultu re: Urine Speci men Sourc e: Urine - Clean Catch Speci men Type: Urine Speci men Date: 1455 Resul t Date: 2138 Resul t Statu s: Final resul t Abnor mal: No Resul ting Lab: [facility] [address] [facility] [address] Tel: CULTU RE ----- ----- ----- --- No growt h in 1 day (dete ction level of 10,00 0 colon ies / ml.) Not Available [facility] (Lab) [address] [facility], [place], [address], 03/03/2025 22:42:27 03/12/2003/12/2025 CULTU RE: URINE result report SEE RESULT S BELOW Test: Cultu re: Urine Speci men Sourc e: Urine - Clean Catch Speci men Type: Urine Speci men Date: 2024 1600 Resul t Date: 2024 0610 Resul t Statu s: Final resul t Abnor mal: No Resul ting Lab: [facility] [address] [facility] [address] Tel: CULTU RE ----- ----- ----- --- No growt h in 1 day (dete ction level of 10,00 0 colon ies / ml.) Not Available [facility] (Lab) [address] [facility], [place], [address], 03/14/2025 07:15:03 03/12/20 25 03/12/2025 urina lysis , dipst ick Leukocytes ++ Not Available [address], [place], [address], 03/12/2025 16:45:06 03/12/20 25 03/12/2025 urina lysis , dipst ick Protein + Not Available [facility] [address], [place], [address], 03/12/2025 16:45:06 03/12/20 25 03/12/2025 urina lysis , dipst ick pH 5 Not Available [facility] [address], [place], [address], 03/12/2025 16:45:06 03/12/20 25 03/12/2025 urina lysis , dipst ick Blood trace Not Available [facility] [address], [place], [address], 03/12/2025 16:45:06 03/12/20 25 03/12/2025 urina lysis , dipst ick Specific [place] 1.015 Not Available [facility] [address], [place], [address], 03/12/2025 16:45:06 03/12/20 25 03/12/2025 urina lysis , dipst ick Ketone +++ Not Available [facility] [facility] [address], [place], [address], 03/12/2025 16:45:06 03/31/20 25 03/31/2025 TSH, REFLE X FREE T4 TSH 0.42 uIU/m L 0.30-5 .33 Not Available [facility] (Lab) [address], [place], [address], 04/01/2025 03:05:12 03/31/20 25 03/31/2025 CULTU RE: URINE result report SEE RESULT S BELOW Test: Cultu re: Urine Speci men Sourc e: Urine Voide d Speci men Type: Urine Speci men Date: 1710 Resul t Date: 2256 Resul t Statu s: Final resul t Abnor mal: No Resul ting Lab: [facility] [address] [facility] [address] Tel: CULTU RE ----- ----- ----- --- Cultu re resul t (>=3 organ isms prese nt) indic ates possi ble conta minat ion. Repea t cultu re if sympt oms indic ate. Not Available [facility] (Lab) [address], [place], [address], 04/01/2025 23:59:19 03/31/20 25 03/31/2025 urina lysis , dipst ick Leukocytes +1 Not Available [facility] domingo [address], [place], [address], 03/31/2025 09:23:13 03/31/20 25 03/31/2025 urina lysis , dipst ick Nitrite normal Not Available [facility] [address], [place], [address], 03/31/2025 09:23:13 03/31/20 25 03/31/2025 urina lysis , dipst ick Urobilinogen normal Not Available [facility] david [address], [place], [address], 03/31/2025 09:23:13 03/31/20 25 03/31/2025 urina lysis , dipst ick Protein trace Not Available [facility] [address], [place], [address], 03/31/2025 09:23:13 03/31/20 25 03/31/2025 urina lysis , dipst ick pH 5 Not Available [facility] [address], [place], [address], 03/31/2025 09:23:13 03/31/20 25 03/31/2025 urina lysis , dipst ick Specific [place] 1.020 Not Available [facility] nita [address], [place], [address], 03/31/2025 09:23:13 03/31/20 25 03/31/2025 urina lysis , dipst ick Ketone normal Not Available [facility] [address], [place], [address], 03/31/2025 09:23:13 03/31/20 25 03/31/2025 urina lysis , dipst ick Bilirubin normal Not Available [facility] anna [address], [place], [address], 03/31/2025 09:23:13 03/31/20 25 03/31/2025 urina lysis , dipst ick Glucose normal Not Available [facility] [address], [place], [address], 03/31/2025 09:23:13 03/31/20 25 03/31/2025 urina lysis , dipst ick Appearance normal Not Available [facility] [address], [place], [address], 03/31/2025 09:23:13 03/31/20 25 03/31/2025 urina lysis , dipst ick Color normal Not Available [facility] [address], [place], [address], 03/31/2025 09:23:13 04/01/20 25 04/01/2025 WOMEN 'S HEALT H SWAB PLUS, DENIS bacterial vaginosis (bv), tma Negati ve negati ve Not Available [facility] (Lab) [address], [place], [address], 04/02/2025 14:08:45 04/01/20 04/01/2025 [facility], DENIS mekhi species, tma Negati ve negati ve Not Available [facility] (Lab) [address] [place], [address], 04/02/2025 14:08:45 04/01/20 25 04/01/2025 [facility], DENIS mekhi glabrata, tma Negati ve negati ve Not Available [facility] (Lab) [address] [place], [address], 04/02/2025 14:08:45 04/01/20 25 04/01/2025 [facility] SW[facility], DENIS trichomonas vaginalis, tma Negati ve negati ve Not Available [facility] (Lab) [address] [place], [address], 04/02/2025 14:08:45 04/01/20 25 04/01/2025 [facility], DENIS chlamydia trachomatis, PCR Negati ve negati ve Not Available [facility] (Lab) [address] [place], [address], 04/02/2025 14:08:45 04/01/20 25 04/01/2025 [facility], DENIS neisseria gonorrhoeae, [...] , C. parap xi is, C. dubli merlin is. Testi ng is perfo rmed using the Trans cript ion Media greg Ampli ficat ion metho d. Tests for Radha da glabr anaya, Trich omona s vagin sofía, Chlam ydia trach omati s, and Neiss eria gonor rhoea e are also inclu ded in this panel . Not Available [facility] (Lab) [address] [place], [address], 04/02/2025 14:08:45 04/22/2004/22/2025 CULTU RE: URINE result report SEE RESULT S BELOW Test: Cultu re: Urine Speci men Sourc e: Urine Voide d Speci men Type: Urine Speci men Date: 2024 1314 Resul t Date: 2024 0322 Resul t Statu s: Final resul t Abnor mal: No Resul ting Lab: [facility] [address] [facility] [address] Tel: CULTU RE ----- ----- ----- --- No growt h in 1 day (dete ction level of 10,00 0 colon ies / ml.) Not Available [facility] (Lab) [address] , [place], [address], 04/24/2025 04:28:01 04/22/2004/22/2025 urina lysis , dipst ick Leukocytes + Not Available [facility] [address], [place], [address], 04/22/2025 10:01:51 04/22/2004/22/2025 urina lysis , dipst ick Protein + Not Available [facility] [address], [place], [address], 04/22/2025 10:01:51 04/22/20 25 04/22/2025 urina lysis , dipst ick pH 8 Not Available [facility] [facility] [address], [place], [address], 04/22/2025 10:01:51 04/22/20 25 04/22/2025 urina lysis , dipst ick Blood + Not Available [facility] [address], [place], [address], 04/22/2025 10:01:51 04/22/20 25 04/22/2025 urina lysis , dipst ick Specific [place] 1.010 Not Available [facility] [address], [place], [address], 04/22/2025 10:01:51 04/22/20 25 04/22/2025 urina lysis , dipst ick Ketone + Not Available [facility] [address], [place], [address], 04/22/2025 10:01:51 06/23/20 25 06/23/2025 HEMAT OCRIT (HCT) HCT 35.6 % (based on docume nted legal sex) 34.0-4 5.0 Not Available [facility] (Lab) [address] [facility], [place], [address], 06/24/2025 11:45:32 06/23/20 25 06/23/2025 HEMOG LOBIN (HGB) HGB 11.1 g/dL (based on docume nted legal sex) 11.6-1 5.4 low Not Available [facility] (Lab) [address] [facility], [place], [address], 06/24/2025 11:45:32 06/23/20 25 06/23/2025 GTT - GESTA ROLAND L SCREE N, ACOG OB glucose, 1 hour screen 180 mg/dL 70-135 high Not Available [facility] (Lab) [address] [place], [address], 06/24/2025 11:45:33 06/23/20 25 06/23/2025 HIV 1/2 ANTIG EN/AN TIBOD Y, REFLE X CONFI RMATI ON HIV antigen/anti body Nonrea ctive nonrea ctive HIV-1 antig en and HIV-1 /HIV- 2 antib odies were not detec greg. No labor atory evide nce of HIV infec tion. Not Available [facility] (Lab) [address] [facility], [place], [address], 06/24/2025 11:45:33 06/23/20 25 06/23/2025 RPR SCREE N, REFLE X TITER /CONF IRMAT ION RPR qualitative Nonrea ctive nonrea ctive Not Available [facility] (Lab) [address] [facility], [place], [address], 06/24/2025 11:45:34 03/02/20 25 03/02/2025 US, obste tric, nucha l trans lucen cy No observ ation record ed. [email or web address] [facility] [address], [place], [address], 03/02/2025 13:35:30 03/02/20 25 03/02/2025 US, obste tric, nucha l trans lucen cy No observ ation record ed. [email or web address] [address], [place], [address], 03/03/2025 14:08:39 03/08/20 25 03/08/2025 US, obste tric, 1st trime ster No observ ation record ed. [email or web address] [facility] [facility] [address], [place], [address], 03/08/2025 12:22:22 03/08/20 25 03/08/2025 US, obste tric, 1st trime ster No observ ation record ed. [email or web address] [address], [place], [address], 03/10/2025 15:03:13 04/01/20 25 03/24/2025 qamar r monit or No observ ation record ed. [address] [facility] [address], [place], [address], 04/08/2025 12:36:45 04/01/20 25 03/22/2025 qamar r monit or No observ ation record ed. [address] (Pulmonary) [address] [facility] [address], [place], [address], 04/06/2025 08:59:34 04/20/20 25 04/20/2025 US, obste tric, limit ed No observ ation record ed. [email or web address] [place] [facility] [address], [place], [address], 04/20/2025 17:39:30 04/20/20 25 04/20/2025 US, obste tric, follo w-up No observ ation record ed. [email or web address] [address], [place], [address], 04/23/2025 08:32:54 04/28/20 25 04/28/2025 US, obste tric, 2nd or 3rd trime ster No observ ation record ed. [email or web address] [place] [address], [place], [address], 04/28/2025 17:48:42 04/28/20 25 04/28/2025 US, obste tric, 2nd or 3rd trime ster No observ ation record ed. [email or web address] [address], [place], [address], 05/04/2025 22:16:11 05/07/20 25 05/07/2025 non-s tress test No observ ation record ed. [address] [facility], [place], [address], 05/28/2025 13:33:54 05/21/20 25 05/21/2025 CT, head + brain , w/o contr ast No observ ation record ed. [email or web address] [facility] [address], [place], [address], 05/24/2025 13:48:57 05/28/20 25 05/28/2025 US, obste tric, follo w-up No observ ation record ed. [facility] [address], [place], [address], 05/28/2025 17:32:34 05/28/20 25 05/28/2025 US, obste tric, follo w-up No observ ation record ed. [email or web address] [address], [place], [address], 06/01/2025 15:13:13 06/08/20 25 06/07/2025 US, obste tric, follo w-up No observ ation record ed. [email or web address] [facility] [address] [facility], [place], [address], 06/15/2025 10:53:46 07/07/20 25 07/07/2025 US, obste tric, follo w-up No observ ation record ed. [email or web address] [facility] [facility] [address], [place], [address], 07/07/2025 13:18:01 07/07/20 25 07/07/2025 US, obste tric, follo w-up No observ ation record ed. [email or web address] [address], [place], [address], 07/07/2025 11:29:37 08/04/20 25 08/04/2025 US, obste tric, follo w-up No observ ation record ed. [email or web address] [facility] [facility] [address], [place], [address], 08/04/2025 15:08:50 08/04/2008/04/2025 US, obste tric, follo w-up No observ ation record ed. [address], [place], [address], 08/06/2025 10:41:50 08/11/2008/11/2025 non-s tress test No observ ation record ed. [email or web address] [facility] [facility] [address], [place], [address], 08/11/2025 17:37:52 08/11/20 non-s tress test No observ ation record ed. [facility] [address], [place], [address], 08/11/2025 17:38:11 08/15/2008/15/2025 non-s tress test No observ ation record ed. [address], [place], [address], 08/21/2025 10:18:57 08/15/2008/15/2025 US, obste tric, bioph ysica l profi le No observ ation record ed. [address] [facility], [place], [address], 08/17/2025 10:50:53 08/18/2008/18/2025 US, obste tric, bioph ysica l profi le + non-s tress test No observ ation record ed. [email or web address] [facility] [facility] [address], [place], [address], 08/18/2025 10:21:39 08/18/20 25 08/18/2025 US, obste tric, bioph ysica l profi le + non-s tress test No observ ation record ed. [email or web address] [address], [place], [address], 08/18/2025 10:35:44 08/18/20 25 08/18/2025 non-s tress test No observ ation record ed. [address], [place], [address], 08/18/2025 17:34:03 08/18/20 non-s tress test No observ ation record ed. [address], [place], [address], 08/18/2025 16:06:09 08/25/2008/25/2025 US, obste tric, bioph ysica l profi le + non-s tress test No observ ation record ed. [email or web address] [facility] [facility] [address], [place], [address], 08/25/2025 18:52:06 08/25/2008/25/2025 US, obste tric, follo w-up No observ ation record ed. joelle Balbuena [address], [place], [address], 08/25/2025 15:47:28 08/25/2008/25/2025 non-s tress test No observ ation record ed. [address], [place], [address], 08/25/2025 18:12:15 08/25/20 non-s tress test No observ ation record ed. [address], [place], [address], 08/25/2025 17:21:19 08/30/20 25 08/30/2025 imagi ng/di agnos tic resul t No observ ation record ed. [address], [place], [address], 08/31/2025 18:17:32 09/01/20 25 09/01/2025 non-s tress test No observ ation record ed. [address], [place], [address], 09/13/2025 11:32:22 09/01/20 25 09/01/2025 US, obste tric No observ ation record ed. [address], [place], [address], 09/02/2025 15:56:01 09/01/2009/01/2025 non-s tress test No observ ation record ed. [address], [place], [address], 09/02/2025 14:32:38 Result Notes None recorded. Problems Name Problem SNOMED Code Status Onset Date Resolution Date Notes Provider Name and Address Organization Details Recorded Time Hypereme sis 432341855 Completed phenerga n now prn Asia arias [facility] 2 16:43:51 Anxiety in pregnanc y 2023226556 9109 Completed will continue to monitor [facility] 2 16:43:51 Past pregnanc y history of gestatio nal diabetes mellitus 602853761 Completed Early 1 hr GTT @ 20wks 11/03 APPT [facility] 2 16:43:51 Spinal muscular atrophy 0805565 Completed Carrier - Not in contact with FOB. [facility] 2 16:43:51 Anxiety 15186322 Completed prozac Karina Burroughs [facility], [facility] 4 11:00:46 Nausea 841439770 Completed d/c zofran pump 11/08 per pt request Karina ramos [facility] 4 11:00:46 Postpart um hemorrha ge [id number] Completed 2017 with d&c Karina ramos [facility] 4 11:00:46 Normal pregnanc y in multigra jessy [id number] 10099 Completed 201907/05/2021 Encounte r for supervis ion of other normal pregnanc y, 3rd trimeste r;Record ed Elsewher e: No Locat ion: [facility] S ource: EHR Manager Database Administration yvrose: N Practi ce ID: [id number] [email or web address] lable Time: 10:45:00 AM Karina ramos [facility] 10:15:27 Gestatio n period, 37 weeks 66124240 Completed 201907/05/2021 37 weeks gestatio n of pregnanc y;Record ed Elsewher e: No Locat ion: [facility] S ource: EHR Manager Database Administration yvrose: N Practi ce ID: [id number] [email or web address] lable Time: 09:00:00 AM Karina ramos [facility] 10:15:[address] Concept Completed 201907/05/2021 Matern care for abnlt fetl hrt rate or rhym, 3rd tri, unsp;Rec orded Elsewher e: No Locat ion: [facility] S ource: EHR Manager Database Administration yvrose: N Practi ce ID: [id number] [email or web address] lable Time: 08:45:00 AM Karian ramos [facility] 10:15:29 Gestatio nal diabetes mellitus 10141802 Completed 201907/05/2021 Gestatio nal diabetes mellitus in pregnanc y, diet controll ed;Recor ded Elsewher e: No Locat ion: [facility] S ource: EHR Manager Database Administration yvrose: N Practi ce ID: [id number] Gigi lable Time: 11:45:00 AM Karina Burroughs null, [facility] 10:15:25 Gestatio n period, 38 weeks 88021047 Completed 201907/05/2021 38 weeks gestatio n of pregnanc y;Record ed Elsewher e: No Locat ion: [facility] S ource: EHR Manager Database Administration yvrose: N Practi ce ID: [id number] Gigi lable Time: 11:30:00 AM Karina Burroughs null, [facility] 10:15:13 Amenorrh ea 51566408 Completed 202007/10/2021 Tammi Jones null, [facility] 13:08:35 Pregnanc y 83520218 Completed 202003/29/2022 Karina Burroughs null, [facility] 4 11:00:49 Pregnanc y 08236243 Completed 202304/22/2024 Karina Burroughs null, [facility] 4 11:00:49 Headache 81446845 Active 2023 Karina Burroughs null, [facility] 5 16:19:28 Pregnanc y 02896054 Active 2023 Karina Burroughs null, [facility] 5 16:19:28 Uncompli cated moderate persiste nt asthma 447241967 Active 2024 albutero l prn Shawn Bradley MD [address], [place], [address], [facility] 5 13:08:36 Anxiety 64716218 Active 2024 sertrali ne started 03/02/25 changed to prozac 10 on Shawn Bradley MD [address], [place], [address], [facility] 5 17:05:48 Nausea and vomiting 52900045 Active 2024 Shawn Bradley MD [address], [place], [address], [facility] 5 13:20:27 Placenta circumva llata 3874484 Active 2024 32wk [facility] 09:44:35 Frequent headache 557573967 Active 2024 transpor t to [facility] 05/21, discharg e 05/23 MFM referral faxed 05/24 SS Neurolog y consult pending per KAJAL Pittman [facility]- Neuro [facility] unable to see [...] than 2-3 times a week. Ryann ramos [facility] 5 10:55:26 Abnormal placenta affectin g manageme nt of mother 59054913 Active 2024 MCI serial growth Ryann ramos [facility] 5 10:46:25 Iron deficien cy anemia 41171017 Active 2024 SS MFM tx venofer 200mg x1 HGB 10.6 Ryann ramos [facility] 5 15:21:25 Gestatio nal diabetes mellitus 34352994 Active 2024 checking bs QID - ruled in GDM Referral faxed to [facility] 07/07 Ryann Green [facility] 14:36:52 Notes:Order faxed to [facility] access 08/10 for PICC line, and home health already caring for ptHilda Gilbert RN at [phone] Problem Notes None recorded. Procedures Surgical History Date Name Laterality Status Provider Name and Address Organization Details Recorded Time 025 SALPINGECTOMY, LAPAROSCOPIC (SURG) completed Not Available [facility] 09/06/2025 11:19:17 025 Date of Last Pap Smear completed Karina Burroughs [facility] 01/28/2025 11:19:42 024 Nexplanon Removal completed Shawn Bradley MD [address], [place], [address], [facility] 08/05/2024 15:09:58 024 Control Implant Insertion completed Anju Mcnamara CNM [address], [place], [address], [facility] 05/08/2024 17:59:34 024 cholecystectomy completed Kraina Burroughs [facility] 03/31/2025 09:18:57 018 Dilation and Curettage completed Karina Burroughs [facility] 07/05/2021 10:17:50 Imaging Results None recorded. Procedure Notes None recorded. Medical Equipment None Reported. Allergies Allergen ID Allergen Name Allergen Category Reaction Reaction Severity Criticality Documentation Date Start Date Code Code System Note Provider Name and Address Organization Details Recorded Time 90784 terbutali ne medicatio n anaphylax is Not available Not available 01/27/20252021 51318 [facility] 16:19:27 68284 amoxicill in medicatio n Not available Not available Not available 09/10/2025 723 RxNorm Not Available gene - External Data Service - prod 16:39:37 69207 terbinafi ne medicatio n anaphylax is Not available high 09/10/20252024 52406 RxNorm Not Available [place] - External Data Service - prod 16:40:54 [...] Prescrib ed Elsewher e: Yes [facility] By: prabhjot Lee r DateTime [...] n (supplie d by office) insert lot [id number] Exp 01/2026 Not Available Not Available Not Available 28 mg iron-800 mcg tablet 07/05 completed Prescrib ed Elsewher e: Yes [facility] odify By: prabhjot Lee r DateTime : 01/14/20 10:45:00 AM Not Available Not Available Not Available lidocaine 5 % topical ointment APPLY OINTMENT EXTERNAL LY TO RIBS THREE TIMES DAILY NEEDED 01/14 completed Not Available Not Available Not Available DATA ENTRY SUPERVISOR-PNV-DH A 28 mg iron-1 mg-200 mg capsule [...] Updated DateTime 06/23/2025 162.56 cm 31.2 kg/m2 10726.81 g 127/77 mm[Hg] Toya Perkins [facility] 06/23/2025 14:17:59 Social History Question Answer Notes LastModified by Organizat ion Details LastModified Time Tobacco Smoking Status Former Smoker Karina ramos, [facility] 07/05/2021 09:06:21 If You Are , What Was Your Level Of Alcohol Consumption Prior To ? Occasional [email or web address] Information not available 03/31/2025 Are You Blind Or Do You Have Difficulty Seeing? No [email or web address] Information not available 07/05/2021 What Is Your Level Of Caffeine Consumption? Heavy [email or web address] Information not available 07/05/2021 In The 14 Days Before Symptom Onset, Have You Had Close [facility] That [facility] Was [facility]? No [email or web address] Information not available 07/05/2021 In The 14 Days Before Symptom Onset, Have You Had Close Contact With A Person Who Is Under Investigation For COVID-19 While That Person Was Ill? No [email or web address] Information not available 07/05/2021 Have You Been To An Area Known To Be High Risk For COVID-19? No [email or web address] Information not available 07/05/2021 Are You Deaf Or Do You Have Serious Difficulty Hearing? No [email or web address] Information not available 07/05/2021 What Type Of Diet Are You Following? REGULAR [email or web address] Information not available 07/05/2021 Which Illicit Or Recreational Drugs Have You Used? Marijuana [email or web address] Information not available 07/05/2021 Have You Ever Been Counseled For Unhealthy Alcohol Use? No [email or web address] Information not available 07/05/2021 Do You Use Your Seat Belt Or Car Seat Routinely? Yes [email or web address] Information not available 07/05/2021 Do You Have Smoke And Carbon Monoxide Detectors In Your Home? Yes [email or web address] Information not available 07/05/2021 Do You Use Sunscreen Routinely? Yes [email or web address] Information not available 07/05/2021 Has Tobacco Cessation Counseling Been Provided? No [email or web address] Information not available 07/05/2021 Have You Used IV Drugs? No Information not available 07/05/2021 Do You Have Difficulty Walking Or Climbing Stairs? No [email or web address] Information not available 12/06/2021 Sex: Unknown Functional Status Question Answer Note LastModified by Organizat ion Details LastModified Time Do you use any illicit or recreational drugs? Yes [email or web address] Information not available 07/05/2021 Do you or have you ever used any other forms of tobacco or nicotine? Yes [email or web address] Information not available 07/05/2021 What is your level of alcohol consumption? None [email or web address] Information not available 03/31/2025 Do you or have you ever used smokeless tobacco? Never used smokeless tobacco Information not available 07/05/2021 Are you able to walk independently without assistance or assistive devices? YESWOREST [email or web address] Information not available 07/05/2021 Are you able to care for yourself independently? Yes [email or web address] Information not available 12/06/2021 Do you have difficulty dressing, bathing, grooming, or toileting? No [email or web address] Information not available 12/06/2021 Do you or have you ever used e-cigarettes or vape? Current user of electronic cigarettes [email or web address] Information not available 07/05/2021 What is your exercise level? Occasional [email or web address] Information not available 07/05/2021 Mental Status Question Answer Note LastModified by Organization D etails LastModified Time Do you feel stressed (tense, restless, nervous, or anxious, or unable to sleep at night)? [id number] [email or web address] Information not available 07/05/2021 Family History Relationship Description Onset Age of this Age Resolved Age Notes LastModified by Organization Details LastModified Time Father No current problems or disability [email or web address] Not available 05/2021 09:06:31 Mother No current problems or disability [email or web address] Not available 05/2021 09:06:31 Medical History Condition Response Allergies (Food, seasonal, environmental ) N Other N Drug/Latex Allergies/Reactions N Breast Cancer N Blood Transfusion N Dermatologic Disorders N [...] ICD10 Code Diagnosis IMO Codes Diagnosis Note [id number] Shawn Bradley MD [place] [address] [address] 05/28/2025 13:46:14 05/28/2025 14:40:01 Abnormal placenta affecting management of mother 93954380 O43.192 Z3A.24 66619843 [id number] Anju Mcnamara CNM [place] [address],[place] [address] 05/28/2025 13:46:33 05/28/2025 15:52:47 Gestation period, 24 weeks [id number] Z3A.24 [id number] cont pnv [id number] Shawn Bradley MD [place] [address],[place] [address] 06/23/2025 13:43:13 06/25/2025 17:52:18 [id number] Anju Mcnamara CNM [place] [address],[place] [address] 06/23/2025 13:43:28 06/23/2025 15:58:03 Heartburn 02514171 R12 60852 Gestation period, 28 weeks 73807646 Z3A.28 [id number] Health Concerns Section Related Observation LastModified by Organization Detai ls LastModified Time None Recorded Concern Status LastModified by Organization Details LastModified Time None Recorded Payers Encounter Date Sequence Insurance Name Policy Number Policy Roberts Covered Member ID Roberts Member ID Guarantor Name 06/23/2025 1 [facility] (MEDICAID HMO) [id number] Yuni Mejia [id number] Yuni Mejia Notes Date Note Type Note Provider Name and Address Organization Details Recorded Time 06/23/2025 text/html Generic HPI TemplateReported by Patient [address], [place], [address], [place] [facility] 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 03/02/20 25 1 B Positive 164 OPEN Fetus Data First Name Last Name Admitted to NICU Weight (g) Sex Living Outcome Pediatric Complications Fetus ID Race Codes Race Delivery Type [id number] Problems Problem Notes SDH form completed 5GI consult Tachycardia Holter monitor 72 order- pt sent back on 03-27-25 Cardiology referral faxed per Dr Martínez office calling pt 04/21 to schedule consult scheduled 05/11 11:15AM Problem Name Start Date End Date Resolution Snomed Code Not e Uncomplicated moderate persistent asthma 03/02/2025 [id number] albuterol prn Abnormal placenta affecting management of mother 05/04/2025 81830133 [facility] serial grow th us Iron deficiency anemia 05/25/2025 [id number] [facility] tx [place] 200mg x1 HGB 10.6 Nausea and vomiting 03/02/2025 47045106 Anxiety 03/02/2025 17089714 sertralin e started 03/02/25 changed to prozac 10 on Gestational diabetes mellitus 07/08/2025 87290720 checking bs QID - ruled in GDM Referral faxed to [facility] 07/07 Frequent headache 05/03/2025 [id number] [place] [facility] 05/21, discharge 05/23 MF referral faxed 05/24 [facility] Neurology consult pending per KAJAL Pittman [facility] ST- Neuro [facility] unable to see pt due to insurance 05/25[facility] 07/05/25 Level US & Consult (see MFM consult zayas recommendations ) regimen prn Imitrex 50mg for acute migraine, vitamin B2 (Riboflavin) 400mg, Coenzyme q10 300mg and magnesium oxide 200 to 600mg daily. minimize use of Excedrin or Tylenol to no more than 2-3 times a week. 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/2025 [id number] 32wk growth us Jun Calculation Initial Jun [...] Weight in lbs Pre/Post Dialysis Refused Weight 158.228617218369 BP Diastolic BP Location Tested BP Systolic [...] Weight in lbs Pre/Post Dialysis Refused Weight 158.722677476505 BP Diastolic BP Location Tested BP Systolic [...] Weight in lbs Pre/Post Dialysis Refused Weight 162.750473380616 BP Diastolic BP Location Tested BP Systolic BP Type 78 123 Fetus Heart Rate Present A 148 Fetus Movement A Yes Comments Patient is having having ronny n, cramping and vaginal discharge. went to ed exam done cultures and rx sent, ?FM, await conveyor monitor results rfilled zofran, precautions and education [...] Type Weight in lbs Pre/Post Dialysis Refused 168.958397079253 BP Diastolic BP Location Tested BP Systolic [...] Type Weight in lbs Pre/Post Dialysis Refused 169.080895707754 BP Diastolic BP Location Tested BP Systolic [...] Weight in lbs Pre/Post Dialysis Refused Weight 175.886349370013 BP Diastolic BP Location Tested BP Systolic [...] Weight in lbs Pre/Post Dialysis Refused Weight 182.755150452154 BP Diastolic BP Location Tested BP Systolic [...] Weight in lbs Pre/Post Dialysis Refused Weight 181.771463486641 BP Diastolic BP Location Tested BP Systolic BP Type 73 L arm 131 sitting Fetus Heart Rate Present Fetus Movement A Yes Comments viral URI testied neg at urg ent care, nausea resolved, efw 68%, +FM plan education and precautions f/u 2 weeks diagnosed GDM, 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, gave list reviewed protein vs carb Flowsheet Date 07/21/2025 Gibson Score Blood Edema Fundus Height Fundus Units Glucose Ketones Leukocytes Nitrite Labor Signs Protein Cervic Dilation Cervic Effacement Cervic Station Type Weight in lbs Pre/Post Dialysis Refused Weight 181.354981159782 BP Diastolic BP Location Tested BP Systolic BP Type 78 L arm 127 sitting Fetus Heart Rate Present A 150 Fetus Movement A Yes Comments rpt urine culture +FM review ed blood sugars, meets with financial operations analyst today, precautions and education f/u 2 weeks [...] Weight in lbs Pre/Post Dialysis Refused Weight 181.420372710827 BP Diastolic BP Location Tested BP Systolic [...] Weight in lbs Pre/Post Dialysis Refused Weight 183.723551546877 BP Diastolic BP Location Tested BP Systolic [...] Type Weight in lbs Pre/Post Dialysis Refused 184.336349061303 BP Diastolic BP Location Tested BP Systolic [...] Type Weight in lbs Pre/Post Dialysis Refused 184.976350055087 BP Diastolic BP Location Tested BP Systolic [...] Type Weight in lbs Pre/Post Dialysis Refused 184.787330368287 BP Diastolic BP Location Tested BP Systolic [...] Weight in lbs Pre/Post Dialysis Refused Weight 184.452238003173 BP Diastolic BP Location Tested BP Systolic [...]
--- OUTSIDE RECORDS SUMMARY | 2025-09-14 00:23 | XMS_ITS | Continuity of Care Document ---
Author Organization [facility] Address [address] [place] [address] [place] [address] Care Team Providers Care Waxer Name Role Phone CARLOS ESTRADA Primary Care Provider Assessment Encounter Date Assessment Date Assessment LastModified by Organization Details LastModified Time 07/21/2025 07/21/2025 Patient is 32___weeks . Discussed plan. Not available 07/21/2025 12:29:30 Plan of Treatment Reminders Order Date Submit Date Provider Last Modified By Organization Details Last Modified Time Details Appointments None recorded. Lab urinalysis , dipstick 2024 025 [address], [place], [address], 11:04:11 Referral None recorded. Procedures None recorded. Surgeries None recorded. Imaging None recorded. Medication Orders None recorded. Patient TargetsNo targets recorded. Patient InstructionsNo instructions recorded. Reason for Referral None Reported. Results Created Date Observation Date Name Description Value Unit Range Abnormal Flag Note LastModifiedBy Organization Detail LastModifiedTime 03/06/2003/06/2025 [UNIT Y] ANEUP LOIDY NIPT fraction 5.7% normal Not Available Medina hernandez [address], [place], [address], 03/06/2025 03:58:26 03/06/20 25 03/06/2025 [UNIT Y] ANEUP LOIDY NIPT sex chromosome aneuploidy NOT DETECT ED normal Not Available [facility] [address], [place], [address], 03/06/2025 03:58:26 03/06/20 25 03/06/2025 [UNIT Y] ANEUP LOIDY NIPT monosomy X LOW RISK <1 in 10,000 normal Not Available [facility] [address], [place], [address], 03/06/2025 03:58:26 03/06/20 25 03/06/2025 [UNIT Y] ANEUP LOIDY NIPT trisomy 13 LOW RISK <1 in 10,000 normal Not Available [facility] [address], [place], [address], 03/06/2025 03:58:26 03/06/20 25 03/06/2025 [UNIT Y] ANEUP LOIDY NIPT trisomy 18 LOW RISK <1 in 10,000 normal Not Available [facility] [address], [place], [address], 03/06/2025 03:58:26 03/06/20 25 03/06/2025 [UNIT Y] ANEUP LOIDY NIPT trisomy 21 LOW RISK <1 in 10,000 normal Not Available [facility] [address], [place], [address], 03/06/2025 03:58:26 03/06/20 25 03/06/2025 [UNIT Y] ANEUP LOIDY NIPT sex FEMALE normal Not Available [facility] [address], [place], [address], 03/06/2025 03:58:26 03/06/20 25 03/06/2025 [UNIT Y] ANEUP LOIDY NIPT gestation SINGLE TON normal Not Available [facility] [address], [place], [address], 03/06/2025 03:58:26 03/06/20 25 03/06/2025 [UNIT Y] ANEUP KIANA NIPT for detailed report, see pdf See PDF normal Not Available [facility] [address], [place], [address], 03/06/2025 03:58:26 03/02/2003/02/2025 CULTU RE: URINE result report SEE RESULT S BELOW Test: Cultu re: Urine Speci men Sourc e: Urine - Clean Catch Speci men Type: Urine Speci men Date: 1455 Resul t Date: 2138 Resul t Statu s: Final resul t Abnor mal: No Resul ting Lab: [facility] [address] [facility] [address] Tel: CULTU RE ----- ----- ----- --- No growt h in 1 day (dete ction level of 10,00 0 colon ies / ml.) Not Available [facility] (Lab) [address] [facility], [place], [address], 03/03/2025 22:42:27 03/12/2003/12/2025 CULTU RE: URINE result report SEE RESULT S BELOW Test: Cultu re: Urine Speci men Sourc e: Urine - Clean Catch Speci men Type: Urine Speci men Date: 2024 1600 Resul t Date: 2024 0610 Resul t Statu s: Final resul t Abnor mal: No Resul ting Lab: [facility] [address] [facility] [address] Tel: CULTU RE ----- ----- ----- --- No growt h in 1 day (dete ction level of 10,00 0 colon ies / ml.) Not Available [facility] (Lab) [address] [facility], [place], [address], 03/14/2025 07:15:03 03/12/2003/12/2025 urina lysis , dipst ick Leukocytes ++ Not Available [address], [place], [address], 03/12/2025 16:45:06 03/12/20 25 03/12/2025 urina lysis , dipst ick Protein + Not Available [place] [address], [place], [address], 03/12/2025 16:45:06 03/12/20 25 03/12/2025 urina lysis , dipst ick pH 5 Not Available [place] [address], [place], [address], 03/12/2025 16:45:06 03/12/20 25 03/12/2025 urina lysis , dipst ick Blood trace Not Available [place] [address], [place], [address], 03/12/2025 16:45:06 03/12/20 25 03/12/2025 urina lysis , dipst ick Specific [place] 1.015 Not Available [facility] [address], [place], [address], 03/12/2025 16:45:06 03/12/20 25 03/12/2025 urina lysis , dipst ick Ketone +++ Not Available [place] [address], [place], [address], 03/12/2025 16:45:06 03/31/20 25 03/31/2025 TSH, REFLE X FREE T4 TSH 0.42 uIU/m L 0.30-5 .33 Not Available [facility] (Lab) [address], [place], [address], 04/01/2025 03:05:12 03/31/20 25 03/31/2025 CULTU RE: URINE result report SEE RESULT S BELOW Test: Cultu re: Urine Speci men Sourc e: Urine Voide d Speci men Type: Urine Speci men Date: 1710 Resul t Date: 2256 Resul t Statu s: Final resul t Abnor mal: No Resul ting Lab: [facility] [address] [facility] [address] Tel: CULTU RE ----- ----- ----- --- Cultu re resul t (>=3 organ isms prese nt) indic ates possi ble conta minat ion. Repea t cultu re if sympt oms indic ate. Not Available [facility] (Lab) [address], [place], [address], 04/01/2025 23:59:19 03/31/20 25 03/31/2025 urina lysis , dipst ick Leukocytes +1 [facility] Available [facility] [address], [place], [address], 03/31/2025 09:23:13 03/31/20 25 03/31/2025 urina lysis , dipst ick Nitrite normal Not Available [place] [address], [place], [address], 03/31/2025 09:23:13 03/31/20 25 03/31/2025 urina lysis , dipst ick Urobilinogen normal Not Available [facility] david [address], [place], [address], 03/31/2025 09:23:13 03/31/20 25 03/31/2025 urina lysis , dipst ick Protein trace Not Available [place] [address], [place], [address], 03/31/2025 09:23:13 03/31/20 25 03/31/2025 urina lysis , dipst ick pH 5 Not Available [place] [address], [place], [address], 03/31/2025 09:23:13 03/31/20 25 03/31/2025 urina lysis , dipst ick Specific [place] 1.020 Not Available [facility] nita [address], [place], [address], 03/31/2025 09:23:13 03/31/20 25 03/31/2025 urina lysis , dipst ick Ketone normal Not Available [place] [address], [place], [address], 03/31/2025 09:23:13 03/31/20 25 03/31/2025 urina lysis , dipst ick Bilirubin normal Not Available [facility] [address], [place], [address], 03/31/2025 09:23:13 03/31/20 25 03/31/2025 urina lysis , dipst ick Glucose normal Not Available [place] [address], [place], [address], 03/31/2025 09:23:13 03/31/20 25 03/31/2025 urina lysis , dipst ick Appearance normal [facility] Available [facility] [address], [place], [address], 03/31/2025 09:23:13 03/31/20 25 03/31/2025 urina lysis , dipst ick Color normal Not Available [place] [address], [place], [address], 03/31/2025 09:23:13 04/01/20 25 04/01/2025 WOMEN 'S HEALT H SWAB PLUS, DENIS bacterial vaginosis (bv), tma Negati ve negati ve Not Available [facility] (Lab) [address], [place], [address], 04/02/2025 14:08:45 04/01/20 25 04/01/2025 [facility], DENIS mekhi species, tma Negati ve negati ve Not Available [facility] (Lab) [address] [place], [address], 04/02/2025 14:08:45 04/01/20 25 04/01/2025 [facility], DENIS mekhi glabrata, tma Negati ve negati ve Not Available [facility] (Lab) [address] [place], [address], 04/02/2025 14:08:45 04/01/20 25 04/01/2025 [facility], DENIS trichomonas vaginalis, tma Negati ve negati ve Not Available [facility] (Lab) [address] [place], [address], 04/02/2025 14:08:45 04/01/20 25 04/01/2025 [facility], DENIS chlamydia trachomatis, PCR Negati ve negati ve Not Available [facility] (Lab) [address] [place], [address], 04/02/2025 14:08:45 04/01/20 25 04/01/2025 [facility] SW[facility], DENIS neisseria [...] ded in this panel . Not Available [facility] (Lab) [address] , [place], [address], 04/02/2025 14:08:45 04/22/2004/22/2025 CULTU RE: URINE result report SEE RESULT S BELOW Test: Cultu re: Urine Speci men Sourc e: Urine Voide d Speci men Type: Urine Speci men Date: 2024 1314 Resul t Date: 2024 0322 Resul t Statu s: Final resul t Abnor mal: No Resul ting Lab: [facility] [address] [facility] [address] Tel: CULTU RE ----- ----- ----- --- No growt h in 1 day (dete ction level of 10,00 0 colon ies / ml.) Not Available [facility] (Lab) [address] [place], [address], 04/24/2025 04:28:01 04/22/2004/22/2025 urina lysis , dipst ick Leukocytes + Not Available [facility] [address], [place], [address], 04/22/2025 10:01:51 04/22/20 25 04/22/2025 urina lysis , dipst ick Protein + Not Available [place] [address], [place], [address], 04/22/2025 10:01:51 04/22/20 25 04/22/2025 urina lysis , dipst ick pH 8 Not Available [place] [address], [place], [address], 04/22/2025 10:01:51 04/22/20 25 04/22/2025 urina lysis , dipst ick Blood + Not Available [place] [address], [place], [address], 04/22/2025 10:01:51 04/22/20 25 04/22/2025 urina lysis , dipst ick Specific [place] 1.010 Not Available [facility] [address], [place], [address], 04/22/2025 10:01:51 04/22/20 25 04/22/2025 urina lysis , dipst ick Ketone + Not Available [place] [address], [place], [address], 04/22/2025 10:01:51 06/23/20 25 06/23/2025 HEMAT OCRIT (HCT) HCT 35.6 % (based on docume nted legal sex) 34.0-4 5.0 Not Available [facility] (Lab) [address] [place], [address], 06/24/2025 11:45:32 06/23/20 25 06/23/2025 HEMOG LOBIN (HGB) HGB 11.1 g/dL (based on docume nted legal sex) 11.6-1 5.4 low Not Available [facility] (Lab) [address] [facility], [place], [address], 06/24/2025 11:45:32 06/23/20 25 06/23/2025 GTT - GESTA ROLAND L SCREAngela N, ACOG OB glucose, 1 hour screen 180 mg/dL 70-135 high Not Available [facility] (Lab) [address] [place], [address], 06/24/2025 11:45:33 06/23/20 25 06/23/2025 HIV 1/2 ANTIG EN/AN TIBOD Y, REFLE X CONFI RMATI ON HIV antigen/anti body Nonrea ctive nonrea ctive HIV-1 antig en and HIV-1 /HIV- 2 antib odies were not detec greg. No labor atory evide nce of HIV infec tion. Not Available [facility] (Lab) [address] [facility], [place], [address], 06/24/2025 11:45:33 06/23/20 25 06/23/2025 RPR SCREE N, REFLE X TITER /CONF IRMAT ION RPR qualitative Nonrea ctive nonrea ctive Not Available [facility] (Lab) [address] [facility], [place], [address], 06/24/2025 11:45:34 07/21/20 25 07/21/2025 CULTU RE: URINE result report SEE RESULT S BELOW Test: Cultu re: Urine Speci men Sourc e: Urine - Clean Catch Speci men Type: Urine Speci men Date: 2024 1024 Resul t Date: 2024 0252 Resul t Statu s: Final resul t Abnor mal: No Resul ting Lab: [facility] [address] [facility] [address] Tel: CULTU RE ----- ----- ----- --- No growt h in 1 day (dete ction level of 10,00 0 colon ies / ml.) Not Available [facility] (Lab) [address] [facility], [place], [address], 07/23/2025 03:57:01 07/21/20 25 07/21/2025 urina lysis , dipst ick Leukocytes ++ Not Available [address], [place], [address], 07/21/2025 11:03:04 07/21/20 25 07/21/2025 urina lysis , dipst ick Nitrite neg Not Available [address] [place], [address], 07/21/2025 11:03:04 07/21/20 25 07/21/2025 urina lysis , dipst ick Urobilinogen neg Not Available [facility] david [address], [place], [address], 07/21/2025 11:03:04 07/21/20 25 07/21/2025 urina lysis , dipst ick Protein + Not Available [place] [address], [place], [address], 07/21/2025 11:03:04 07/21/20 25 07/21/2025 urina lysis , dipst ick pH 5 Not Available [place] [address], [place], [address], 07/21/2025 11:03:04 07/21/20 25 07/21/2025 urina lysis , dipst ick Specific [place] 1.030 Not Available [facility] nita [address], [place], [address], 07/21/2025 11:03:04 07/21/20 25 07/21/2025 urina lysis , dipst ick Ketone +++ Not Available [place] [address], [place], [address], 07/21/2025 11:03:04 07/21/20 25 07/21/2025 urina lysis , dipst ick Bilirubin neg Not Available [facility] [address], [place], [address], 07/21/2025 11:03:04 07/21/20 25 07/21/2025 urina lysis , dipst ick Glucose neg Not Available [place] [address], [place], [address], 07/21/2025 11:03:04 07/21/20 25 07/21/2025 urina lysis , dipst ick Appearance cloudy Not Available [facility] [address], [place], [address], 07/21/2025 11:03:04 07/21/20 25 07/21/2025 urina lysis , dipst ick Color dark Not Available [place] [address], [place], [address], 07/21/2025 11:03:04 03/02/20 25 03/02/2025 US, obste tric, nucha l trans lucen cy No observ ation record ed. [email or web address] [place] [address], [place], [address], 03/02/2025 13:35:30 03/02/20 25 03/02/2025 US, obste tric, nucha l trans lucen cy No observ ation record ed. [email or web address] [address], [place], [address], 03/03/2025 14:08:39 03/08/2003/08/2025 US, obste tric, 1st trime ster No observ ation record ed. [email or web address] [place] [address], [place], [address], 03/08/2025 12:22:22 03/08/20 25 03/08/2025 US, obste tric, 1st trime ster No observ ation record ed. [email or web address] [address], [place], [address], 03/10/2025 15:03:13 04/01/20 25 03/24/2025 qamar r monit or No observ ation record ed. [email or web address] [address], [place], [address], 04/08/2025 12:36:45 04/01/20 25 03/22/2025 qamar r monit or No observ ation record ed. [email or web address] [facility] (Pulmonary) [address] [facility] [address], [place], [address], 04/06/2025 08:59:34 04/20/20 25 04/20/2025 US, obste tric, limit ed No observ ation record ed. [email or web address] [place] [address], [place], [address], 04/20/2025 17:39:30 04/20/20 25 04/20/2025 US, obste tric, follo w-up No observ ation record ed. [email or web address] [address], [place], [address], 04/23/2025 08:32:54 04/28/20 25 04/28/2025 US, obste tric, 2nd or 3rd trime ster No observ ation record ed. [email or web address] [place] [address], [place], [address], 04/28/2025 17:48:42 04/28/20 25 04/28/2025 US, obste tric, 2nd or 3rd trime ster No observ ation record ed. [email or web address] [address], [place], [address], 05/04/2025 22:16:11 05/07/2005/07/2025 non-s tress test No observ ation record ed. [email or web address] [facility] [address] [facility] [address], [place], [address], 05/28/2025 13:33:54 05/21/20 25 05/21/2025 CT, head + brain , w/o contr ast No observ ation record ed. [email or web address] [facility] [address] [facility] [address], [place], [address], 05/24/2025 13:48:57 05/28/20 05/28/2025 US, obste tric, follo w-up No observ ation record ed. [email or web address] [place] [address], [place], [address], 05/28/2025 17:32:34 05/28/20 25 05/28/2025 US, obste tric, follo w-up No observ ation record ed. [email or web address] [address], [place], [address], 06/01/2025 15:13:13 06/08/20 25 06/07/2025 US, obste tric, follo w-up No observ ation record ed. [email or web address] [facility] [address] [facility], [place], [address], 06/15/2025 10:53:46 07/07/20 25 07/07/2025 US, obste tric, follo w-up No observ ation record ed. [email or web address] [place] [address], [place], [address], 07/07/2025 13:18:01 07/07/20 25 07/07/2025 US, obste tric, follo w-up No observ ation record ed. [email or web address] [address], [place], [address], 07/07/2025 11:29:37 08/04/20 25 08/04/2025 US, obste tric, follo w-up No observ ation record ed. [email or web address] [place] [address], [place], [address], 08/04/2025 15:08:50 08/04/20 25 08/04/2025 US, obste tric, follo w-up No observ ation record ed. [email or web address] [address], [place], [address], 08/06/2025 10:41:50 08/11/2008/11/2025 non-s tress test No observ ation record ed. [place] [address], [place], [address], 08/11/2025 17:37:52 08/11/20 non-s tress test No observ ation record ed. [place] [address], [place], [address], 08/11/2025 17:38:11 08/15/2008/15/2025 non-s tress test No observ ation record ed. [address] [facility], [place], [address], 08/21/2025 10:18:57 08/15/2008/15/2025 US, obste tric, bioph ysica l profi le No observ ation record ed. [address] [facility], [place], [address], 08/17/2025 10:50:53 08/18/2008/18/2025 US, obste tric, bioph ysica l profi le + non-s tress test No observ ation record ed. [email or web address] [place] [address], [place], [address], 08/18/2025 10:21:39 08/18/2008/18/2025 US, obste tric, bioph ysica l profi le + non-s tress test No observ ation record ed. [email or web address] [address], [place], [address], 08/18/2025 10:35:44 08/18/2008/18/2025 non-s tress test No observ ation record ed. [email or web address] [place] [address], [place], [address], 08/18/2025 17:34:03 08/18/20 non-s tress test No observ ation record ed. [address], [place], [address], 08/18/2025 16:06:09 08/25/20 25 08/25/2025 US, obste tric, bioph ysica l profi le + non-s tress test No observ ation record ed. [facility] [address], [place], [address], 08/25/2025 18:52:06 08/25/2008/25/2025 US, obste tric, follo w-up No observ ation record ed. joelle [address], [place], [address], 08/25/2025 15:47:28 08/25/20 25 08/25/2025 non-s tress test No observ ation record ed. [address], [place], [address], 08/25/2025 18:12:15 08/25/20 non-s tress test No observ ation record ed. [address], [place], [address], 08/25/2025 17:21:19 08/30/20 25 08/30/2025 imagi ng/di agnos tic resul t No observ ation record ed. [place] [id number] [place] [address], [place], [address], 08/31/2025 18:17:32 09/01/20 25 09/01/2025 non-s tress test No observ ation record ed. [facility] [address] [facility] [address], [place], [address], 09/13/2025 11:32:22 09/01/20 25 09/01/2025 US, obste tric No observ ation record ed. [address] [facility] [address], [place], [address], 09/02/2025 15:56:01 09/01/20 25 09/01/2025 non-s tress test No observ ation record ed. [address] [facility] [address], [place], [address], 09/02/2025 14:32:38 Result Notes None recorded. Problems Name Problem SNOMED Code Status Onset Date Resolution Date Notes Provider Name and Address Organization Details Recorded Time Hypereme sis 838196389 Completed phenerga n now prn Asia Baileyashutosh arias [facility] 2 16:43:51 Anxiety in pregnanc y 1464730651 9109 Completed will continue to monitor Asia Luis ramos [facility] 2 16:43:51 Past pregnanc y history of gestatio nal diabetes mellitus [id number] Completed Early 1 hr GTT @ 20wks 11/03 APPT Asia Luis arias [facility] 2 16:43:51 Spinal muscular atrophy 2494178 Completed Carrier - Not in contact with FOB. Asiaamadeo ramos [facility] 2 16:43:51 Anxiety 27900416 Completed prozac Karina ramos [facility] 4 11:00:46 Nausea 543871349 Completed d/c zofran pump 11/08 per pt request Karina ramos [facility] 4 11:00:46 Postpart um hemorrha ge [id number] Completed hx 2017 with d&c Karina ramos, [facility] 4 11:00:46 Normal pregnanc y in multigra jessy [id number] 53226 Completed 201907/05/2021 Encounte r for supervis ion of other normal pregnanc y, 3rd trimeste r;Record ed Elsewher e: No Locat ion: Jaelyn castillo [facility] S ource: EHR Orthodontic Technician yvrose: N Dennis ce ID: [id number] Gigi lable Time: 10:45:00 AM Karina ramos [facility] 1 10:15:27 Gestatio n period, 37 weeks 79372444 Completed 201907/05/2021 37 weeks gestatio n of pregnanc y;Record ed Elsewher e: No [facility] EHR Orthodontic Technician yvrose: N Dennis ce ID: [id number] Gigi lable Time: 09:00:00 AM Karina ramos [facility] [address] 10:15:[address] Concept Completed 201907/05/2021 Matern care for abnlt fetl hrt rate or rhym, 3rd tri, unsp;Rec orded Elsewher e: No Locat ion: [facility] S ource: EHR Orthodontic Technician yvrose: N Natalyati ce ID: [id number] Gigi lable Time: 08:45:00 AM Karina ramos [facility] 1 10:15:29 Gestatio nal diabetes mellitus 25250772 Completed 201907/05/2021 Gestatio nal diabetes mellitus in pregnanc y, diet controll ed;Recor ded Elsewher e: No Locat ion: [facility] S ource: EHR Orthodontic Technician yvrose: N Natalyati ce ID: [id number] Gigi lable Time: 11:45:00 AM Karina ramos [facility] 1 10:15:25 Gestatio n period, 38 weeks 84625914 Completed 201907/05/2021 38 weeks gestatio n of pregnanc y;Record ed Elsewher e: No Locat ion: Jaelyn csatillo [facility] S ource: EHR Orthodontic Technician yvrose: N Practi ce ID: [id number] Gigi lable Time: 11:30:00 AM Karina Burroughs null, [facility] 1 10:15:13 Amenorrh ea 26087799 Completed 202007/10/2021 Tammi Jones null, [facility] 1 13:08:35 Pregnanc y [id number] Completed 202003/29/2022 Karina Burroughs null, [facility] 4 11:00:49 Pregnanc y [id number] Completed 202304/22/2024 Karina Burroughs null, [facility] 4 11:00:49 Headache [id number] Active 2023 Karina Burroughs null, [facility] 5 16:19:28 Pregnanc y [id number] Active 2023 Karina Burroughs null, [facility] 5 16:19:28 Uncompli cated moderate persiste nt asthma [id number] Active 2024 albutero l prn Shawn Bradley MD [address] [place], [address], [facility] 5 13:08:36 Anxiety 21214505 Active 2024 sertrali ne started 03/02/25 changed to prozac 10 on Shawn Bradley MD [address], [place], [address], [facility] 5 17:05:48 Nausea and vomiting 00171698 Active 2024 Shawn Bradley MD [address] [place], [address], [place] [facility] 5 13:20:27 Placenta circumva llata 0960806 Active 2024 32wk [facility] 09:44:35 Frequent headache [id number] Active 2024 transpor t to [facility] 05/21, discharg e 05/23 [facility] referral faxed 05/24 [facility] pending per KAJAL Pittman [facility] to [facility] pt [...] more than 2-3 times a week. [facility] 10:55:26 Abnormal placenta affectin g manageme nt of mother 80215744 Active 2024 MCI serial growth [facility] 5 10:46:25 Iron deficien cy anemia 32916986 Active 2024 [facility] M[facility] tx venofer 200mg x1 HGB 10.6 Ryann Castro [facility] 5 15:21:25 Gestatio nal diabetes mellitus 09142381 Active 2024 checking bs QID - ruled in GDM Referral faxed to [facility] 07/07 Ryann Castro [facility] 5 14:36:52 Notes:Order faxed to [facility] 08/10 for PICC line, and home health already caring for pt. Vladimir RDZ at [phone] Problem Notes None recorded. Procedures Surgical History Date Name Laterality Status Provider Name and Address Organization Details Recorded Time 025 SALPINGECTOMY, LAPAROSCOPIC (SURG) completed Not Available [facility] 09/06/2025 11:19:17 025 Date of Last Pap Smear completed Karina Burroughs [facility] 01/28/2025 11:19:42 024 Nexplanon Removal completed Shawn Bradley MD [address] [place], [address], [facility] 08/05/2024 15:09:58 024 Control Implant Insertion completed Anju Mcnamara CNM [address] [place], [address], [facility] 05/08/2024 17:59:34 024 cholecystectomy completed Karina Burroughs [facility] 03/31/2025 09:18:57 018 Dilation and Curettage completed Karina Burroughs [facility] 07/05/2021 10:17:50 Imaging Results None recorded. Procedure Notes None recorded. Medical Equipment None Reported. Allergies Allergen ID Allergen Name Allergen Category Reaction Reaction Severity Criticality Documentation Date Start Date Code Code System Note Provider Name and Address Organization Details Recorded Time 77969 terbutali ne medicatio n anaphylax is Not available Not available 01/27/20252021 37903 RxNorm [facility] 16:19:27 62602 amoxicill in medicatio n Not available Not available Not available 09/10/2025 723 RxNorm Not Available gene - External Data Service - prod 16:39:37 30285 terbinafi ne medicatio n anaphylax is Not available [facility] 09/10/20252024 26051 RxNorm Not Available gene - External Data [...] Prescrib ed Elsewher e: Yes Loca tion: [facility] odify By: prabhjot Lee r DateTime [...] n (supplie d by office) insert lot [id number] Exp 01/2026 Not Available Not Available Not Available 28 mg iron-800 mcg tablet 07/05 completed Prescrib ed Elsewher e: Yes Loca tion: [facility] odify By: prabhjot Lee r DateTime : 01/14/20 10:45:00 AM Not Available Not Available Not Available lidocaine 5 % topical ointment APPLY OINTMENT EXTERNAL LY TO RIBS THREE TIMES DAILY NEEDED 01/14 completed Not Available Not Available Not Available 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 06/23 completed Not Available Not Available Not Available TRUEplus Insulin 0.5 mL 31 gauge x /16 syringe USE DIRECTED TO INJECT INSULIN active [...] and Address Organization Details Last Updated DateTime 07/21/2025 162.56 cm 31.1 kg/m2 83673.22 g 127/78 mm[Hg] Toya Perkins [facility] 07/21/2025 09:35:09 Social History Question Answer Notes LastModified by Organizat ion Details LastModified Time Tobacco Smoking Status Former Smoker Karina ramos, [facility] 07/05/2021 09:06:21 If You Are , What Was Your Level Of Alcohol Consumption Prior To ? Occasional [email or web address] Information not available 03/31/2025 Are You Blind Or Do You Have Difficulty Seeing? No [email or web address] Information not available 07/05/2021 What Is Your Level Of Caffeine Consumption? Heavy [email or web address] Information not available 07/05/2021 In The 14 Days Before Symptom Onset, Have You Had Close Contact With A Laboratory-confir med COVID-19 While That Case Was Ill? No Information not available 07/05/2021 In The 14 Days Before Symptom Onset, Have You Had Close Contact With A Person Who Is Under Investigation For COVID-19 While That Person Was Ill? No [email or web address] Information not available 07/05/2021 Have You Been To An Area Known To Be High Risk For COVID-19? No [email or web address] Information not available 07/05/2021 Are You Deaf Or Do You Have Serious Difficulty Hearing? No [email or web address] Information not available 07/05/2021 What Type Of Diet Are You Following? REGULAR [email or web address] Information not available 07/05/2021 Which Illicit Or Recreational Drugs Have You Used? Marijuana [email or web address] Information not available 07/05/2021 Have You Ever Been Counseled For Unhealthy Alcohol Use? No [email or web address] Information not available 07/05/2021 Do You Use Your Seat Belt Or Car Seat Routinely? Yes [email or web address] Information not available 07/05/2021 Do You Have Smoke And Carbon Monoxide Detectors In Your Home? Yes [email or web address] Information not available 07/05/2021 Do You Use Sunscreen Routinely? Yes [email or web address] Information not available 07/05/2021 Has Tobacco Cessation Counseling Been Provided? No [email or web address] Information not available 07/05/2021 Have You Used IV Drugs? No [email or web address] Information not available 07/05/2021 Do You Have Difficulty Walking Or Climbing Stairs? No [email or web address] Information not available 12/06/2021 Sex: Unknown Functional Status Question Answer Note LastModified by Organizat ion Details LastModified Time Do you use any illicit or recreational drugs? Yes [email or web address] Information not available 07/05/2021 Do you or have you ever used any other forms of tobacco or nicotine? Yes [email or web address] Information not available 07/05/2021 What is your level of alcohol consumption? None [email or web address] Information not available 03/31/2025 Do you or have you ever used smokeless tobacco? Never used smokeless tobacco [email or web address] Information not available 07/05/2021 Are you able to walk independently without assistance or assistive devices? YESWOREST [email or web address] Information not available 07/05/2021 Are you able to care for yourself independently? Yes [email or web address] Information not available 12/06/2021 Do you have difficulty dressing, bathing, grooming, or toileting? No [email or web address] Information not available 12/06/2021 Do you or have you ever used e-cigarettes or vape? Current user of electronic cigarettes [email or web address] Information not available 07/05/2021 What is your exercise level? Occasional [email or web address] Information not available 07/05/2021 Mental Status Question Answer Note LastModified by Organization D etails LastModified Time Do you feel stressed (tense, restless, nervous, or anxious, or unable to sleep at night)? [id number] [email or web address] Information not available 07/05/2021 Family History Relationship Description Onset Age of this Age Resolved Age Notes LastModified by Organization Details LastModified Time Father No current problems or disability [email or web address] Not available 05/2021 09:06:31 Mother No current [...] ICD10 Code Diagnosis IMO Codes Diagnosis Note [id number] Shawn Bradley MD [facility] [address] [address] 06/23/2025 13:43:13 06/25/2025 17:52:18 [id number] [facility] [address],[place] [address] 06/23/2025 13:43:28 06/23/2025 15:58:03 Heartburn 62847880 R12 93934 Gestation period, 28 weeks 59869725 Z3A.28 3415902 [id number] Shawn Bradley MD [place] [address],[place] [address] 07/07/2025 10:14:22 07/07/2025 11:00:23 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 Z3A.30 6057906 [id number] [facility] [address],[place] [address] 07/07/2025 10:14:33 07/07/2025 11:38:54 Gestation period, 30 weeks 64237701 Z3A.30 8124717 cont pnv Nausea 494733563 R11.0 80831 Gestationa l diabetes mellitus 09691499 O24.419 30735636 [id number] [facility] [address],[place] [address] 07/21/2025 09:28:54 07/21/2025 12:36:06 Pain in pelvis 43269802 R10.2 231194 Gestation period, 32 weeks 0728993 Z3A.32 2327044 Health Concerns Section Related Observation LastModified by Organization Detai ls LastModified Time None Recorded Concern Status LastModified by Organization Details LastModified Time None Recorded Payers Encounter Date Sequence Insurance Name Policy Number Policy Roberts Covered Member ID Roberts Member ID Guarantor Name 07/21/2025 1 [facility] (MEDICAID HMO) [id number] Yuni Mejia [id number] Yuni Mejia Notes Date Note Type Note Provider Name and Address Organization Details Recorded Time 07/21/2025 text/html Generic HPI TemplateReported by Patient Anju Mcnamara CNM [address] [place], [address], [place] [facility] 07/21/2025 12:29:49 OBGyn Episode Ob Episode Information Episode Created Date Number of Fetuses Patient Bloodtype Patient rh Status Prepregnancy Weight lbs Domestic Partner Domestic Partner Phone Father Name Business Project Manager Status 03/02/20 1 B Positive 164 OPEN Fetus Data First Name Last Name Admitted to NICU Weight (g) Sex Living Outcome Pediatric Complications Fetus ID Race Codes Race Delivery Type [id number] Problems Problem Notes SDH form completed 5GI consult Tachycardia Holter monitor 72 order- pt sent back on 03-27-25 Cardiology referral faxed per Dr Martínez office calling pt 04/21 to schedule consult scheduled 05/11 11:15AM Problem Name Start Date End Date Resolution Snomed Code Not e Uncomplicated moderate persistent asthma 03/02/2025 992029904 albuterol prn Abnormal placenta affecting management of mother 05/04/2025 35116337 MCI serial grow th us Iron deficiency anemia 05/25/2025 69073834 [facility] tx [place] 200mg x1 HGB 10.6 Nausea and vomiting 03/02/2025 90905904 Anxiety 03/02/2025 04424704 sertralin e started 03/02/25 changed to prozac 10 on Gestational diabetes mellitus 07/08/2025 04952541 checking bs QID - ruled in GDM Referral faxed to [facility] 07/07 Frequent headache 05/03/2025 [id number] [place] to [facility] 05/21, discharge 05/23 MF referral faxed 05/24 [facility] Neurology consult pending per KAJAL Pittman [facility]- [facility] unable [facility] pt due to insurance 05/25[facility] 07/05/25 Level US & Consult (see MFM consult zayas recommendations ) regimen prn Imitrex 50mg for acute migraine, vitamin B2 (Riboflavin) 400mg, Coenzyme q10 300mg and magnesium oxide 200 to 600mg daily. minimize use of Excedrin or Tylenol to no more than 2-3 times a week. 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 went to ed exam done cultures and rx sent, ?FM, await cardiac sonographer results rfilled zofran, precautions and education f/u [...] Type Weight in lbs Pre/Post Dialysis Refused 168.555882569384 BP Diastolic BP Location Tested BP Systolic [...] Type Weight in lbs Pre/Post Dialysis Refused 169.802003034526 BP Diastolic BP Location Tested BP Systolic [...] Weight in lbs Pre/Post Dialysis Refused Weight 175.555282307225 BP Diastolic BP Location Tested BP Systolic [...] Weight in lbs Pre/Post Dialysis Refused Weight 182.917695575744 BP Diastolic BP Location Tested BP Systolic [...] Weight in lbs Pre/Post Dialysis Refused Weight 181.527051067430 BP Diastolic BP Location Tested BP Systolic BP Type 73 L arm 131 sitting Fetus Heart Rate Present Fetus Movement A Yes Comments viral URI testied neg at urg ent care, nausea resolved, efw 68%, +FM plan education and precautions f/u 2 weeks diagnosed GDM, plan gore inserter, gave list reviewed protein vs carb Flowsheet Date 07/21/2025 Gibson Score Blood Edema Fundus Height Fundus Units Glucose Ketones Leukocytes Nitrite Labor Signs Protein Cervic Dilation Cervic Effacement Cervic Station Type Weight in lbs Pre/Post Dialysis Refused Weight 181.738858963069 BP Diastolic BP Location Tested BP Systolic BP Type 78 L arm 127 sitting Fetus Heart Rate Present A 150 Fetus Movement A Yes Comments rpt urine culture +FM review ed blood sugars, meets with gore inserter today, precautions and education f/u 2 weeks [...] Weight in lbs Pre/Post Dialysis Refused Weight 181.614838886438 BP Diastolic BP Location Tested BP Systolic [...] Weight in lbs Pre/Post Dialysis Refused Weight 183.803249908808 BP Diastolic BP Location Tested BP Systolic [...] Type Weight in lbs Pre/Post Dialysis Refused 184.215628278628 BP Diastolic BP Location Tested BP Systolic [...] Type Weight in lbs Pre/Post Dialysis Refused 184.135316126381 BP Diastolic BP Location Tested BP Systolic [...] Type Weight in lbs Pre/Post Dialysis Refused 184.873577848460 BP Diastolic BP Location Tested BP Systolic [...] Weight in lbs Pre/Post Dialysis Refused Weight 184.466422554041 BP Diastolic BP Location Tested BP Systolic [...]
--- OUTSIDE RECORDS SUMMARY | 2025-09-14 00:23 | XMS_ITS | Continuity of Care Document ---
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 Plan of Treatment Reminders Order Date Submit Date Provider Last Modified By Organization Details Last Modified Time Details Appointments None recorded. Lab None recorded. Referral None recorded. Procedures None recorded. Surgeries None recorded. Imaging US, obstetric, biophysical profile + non-stress test 2024 025 [email or web address] [address], [place], [address], 10:41:20 Medication Orders None recorded. Patient TargetsNo targets recorded. Patient InstructionsNo instructions recorded. Reason for Referral None Reported. Results Created Date Observation Date Name Description Value Unit Range Abnormal Flag Note LastModifiedBy Organization Detail LastModifiedTime 03/06/2003/06/2025 [UNIT Y] ANEUP LOIDY NIPT fraction 5.7% normal Not Available [facility] [address], [place], [address], 03/06/2025 03:58:26 03/06/20 25 03/06/2025 [UNIT Y] ANEUP LOIDY NIPT sex chromosome aneuploidy NOT DETECT ED normal Not Available [facility] [address], [place], [address], 03/06/2025 03:58:26 03/06/20 25 03/06/2025 [UNIT Y] ANEUP LOIDY NIPT monosomy X LOW RISK <1 in 10,000 normal Not Available [facility] [address], [place], [address], 03/06/2025 03:58:26 03/06/20 25 03/06/2025 [UNIT Y] ANEUP LOIDY NIPT trisomy 13 LOW RISK <1 in 10,000 normal Not Available [facility] [address], [place], [address], 03/06/2025 03:58:26 03/06/20 25 03/06/2025 [UNIT Y] ANEUP LOIDY NIPT trisomy 18 LOW RISK <1 in 10,000 normal Not Available [facility] [address], [place], [address], 03/06/2025 03:58:26 03/06/20 25 03/06/2025 [UNIT Y] ANEUP LOIDY NIPT trisomy 21 LOW RISK <1 in 10,000 normal Not Available [facility] [address], [place], [address], 03/06/2025 03:58:26 03/06/20 25 03/06/2025 [UNIT Y] ANEUP LOIDY NIPT sex FEMALE normal Not Available [facility] [address], [place], [address], 03/06/2025 03:58:26 03/06/20 25 03/06/2025 [UNIT Y] ANEUP LOIDY NIPT gestation SINGLE TON normal Not Available [facility] [address], [place], [address], 03/06/2025 03:58:26 03/06/20 25 03/06/2025 [UNIT Y] ANEUP LOIDY NIPT for detailed report, see pdf See PDF normal Not Available [facility] [address], [place], [address], 03/06/2025 03:58:26 03/02/2003/02/2025 CULTU RE: URINE result report SEE RESULT S BELOW Test: Cultu re: Urine Speci men Sourc e: Urine - Clean Catch Speci men Type: Urine Speci men Date: 025 1455 Resul t Date: 025 2138 Resul t Statu s: Final resul t Abnor mal: No Resul ting Lab: [facility] [address] [facility] [address] Tel: CULTU RE ----- ----- ----- --- No growt h in 1 day (dete ction level of 10,00 0 colon ies / ml.) Not Available [facility] (Lab) [address] [facility], [place], [address], 03/03/2025 22:42:27 03/12/2003/12/2025 CULTU RE: URINE result report SEE RESULT S BELOW Test: Cultu re: Urine Speci men Sourc e: Urine - Clean Catch Speci men Type: Urine Speci men Date: 2024 1600 Resul t Date: 2024 0610 Resul t Statu s: Final resul t Abnor mal: No Resul ting Lab: [facility] [address] [facility] [address] Tel: CULTU RE ----- ----- ----- --- No growt h in 1 day (dete ction level of 10,00 0 colon ies / ml.) Not Available [facility] (Lab) [address] [place], [address], 03/14/2025 07:15:03 03/12/2003/12/2025 urina lysis , dipst ick Leukocytes ++ Not Available [address], [place], [address], 03/12/2025 16:45:06 03/12/2003/12/2025 urina lysis , dipst ick Protein + Not Available [facility] [address], [place], [address], 03/12/2025 16:45:06 03/12/20 25 03/12/2025 urina lysis , dipst ick pH 5 Not Available [address], [place], [address], 03/12/2025 16:45:06 03/12/20 25 03/12/2025 urina lysis , dipst ick Blood trace Not Available [address], [place], [address], 03/12/2025 16:45:06 03/12/20 25 03/12/2025 urina lysis , dipst ick Specific [place] 1.015 Not Available [facility] [address], [place], [address], 03/12/2025 16:45:06 03/12/20 25 03/12/2025 urina lysis , dipst ick Ketone +++ Not Available [address], [place], [address], 03/12/2025 16:45:06 03/31/20 25 03/31/2025 TSH, REFLE X FREE T4 TSH 0.42 uIU/m L 0.30-5 .33 Not Available [facility] (Lab) [address] [facility], [place], [address], 04/01/2025 03:05:12 03/31/20 25 03/31/2025 CULTU RE: URINE result report SEE RESULT S BELOW Test: Cultu re: Urine Speci men Sourc e: Urine Voide d Speci men Type: Urine Speci men Date: 1710 Resul t Date: 6 Resul t Statu s: Final resul t Abnor mal: No Resul ting Lab: [facility] [address] [facility] [address] Tel: CULTU RE ----- ----- ----- --- Cultu re resul t (>=3 organ isms prese nt) indic ates possi ble conta minat ion. Repea t cultu re if sympt oms indic ate. Not Available [facility] (Lab) [address] [facility], [place], [address], 04/01/2025 23:59:19 03/31/20 25 03/31/2025 urina lysis , dipst ick Leukocytes +1 Not Available [address], [place], [address], 03/31/2025 09:23:13 03/31/20 25 03/31/2025 urina lysis , dipst ick Nitrite normal Not Available [address], [place], [address], 03/31/2025 09:23:13 03/31/20 25 03/31/2025 urina lysis , dipst ick Urobilinogen normal Not Available [facility] [address], [place], [address], 03/31/2025 09:23:13 03/31/20 25 03/31/2025 urina lysis , dipst ick Protein trace Not Available [address], [place], [address], 03/31/2025 09:23:13 03/31/20 25 03/31/2025 urina lysis , dipst ick pH 5 Not Available [facility], [place], [address], 03/31/2025 09:23:13 03/31/20 25 03/31/2025 urina lysis , dipst ick Specific [place] 1.020 Not Available [facility] [address], [place], [address], 03/31/2025 09:23:13 03/31/20 25 03/31/2025 urina lysis , dipst ick Ketone normal Not Available [address], [place], [address], 03/31/2025 09:23:13 03/31/20 25 03/31/2025 urina lysis , dipst ick Bilirubin normal Not Available [facility] [address], [place], [address], 03/31/2025 09:23:13 03/31/20 25 03/31/2025 urina lysis , dipst ick Glucose normal Not Available [facility], [place], [address], 03/31/2025 09:23:13 03/31/20 25 03/31/2025 urina lysis , dipst ick Appearance normal Not Available [facility] [address], [place], [address], 03/31/2025 09:23:13 03/31/20 25 03/31/2025 urina lysis , dipst ick Color normal Not Available [address], [place], [address], 03/31/2025 09:23:13 04/01/20 25 04/01/2025 [facility] DENIS bacterial vaginosis (bv), tma Negati ve negati ve Not Available [facility] (Lab) [address] [place], [address], 04/02/2025 14:08:45 04/01/20 25 04/01/2025 [facility], DENIS mekhi species, tma Negati ve negati ve Not Available [facility] (Lab) [address] [place], [address], 04/02/2025 14:08:45 04/01/20 25 04/01/2025 WOMEN 'S HE[facility] H SWAB PLUS, DENIS mekhi glabrata, tma Negati ve negati ve Not Available [facility] (Lab) [address] [place], [address], 04/02/2025 14:08:45 04/01/20 25 04/01/2025 [facility], DENIS trichomonas vaginalis, tma Negati ve negati ve Not Available [facility] (Lab) [address] [facility], [place], [address], 04/02/2025 14:08:45 04/01/20 25 04/01/2025 [facility], DENIS chlamydia trachomatis, PCR Negati ve negati ve Not Available [facility] (Lab) [address] [place], [address], 04/02/2025 14:08:45 04/01/20 25 04/01/2025 [facility], DENIS neisseria [...] ded in this panel . Not Available [facility] (Lab) [address] , [place], [address], 04/02/2025 14:08:45 04/22/2004/22/2025 CULTU RE: URINE result report SEE RESULT S BELOW Test: Cultu re: Urine Speci men Sourc e: Urine Voide d Speci men Type: Urine Speci men Date: 2024 1314 Resul t Date: 2024 0322 Resul t Statu s: Final resul t Abnor mal: No Resul ting Lab: [facility] [address] [facility] [address] Tel: CULTU RE ----- ----- ----- --- No growt h in 1 day (dete ction level of 10,00 0 colon ies / ml.) Not Available [facility] (Lab) [address], [place], [address], 04/24/2025 04:28:01 04/22/20 25 04/22/2025 urina lysis , dipst ick Leukocytes + Not Available [facility] [address], [place], [address], 04/22/2025 10:01:51 04/22/20 25 04/22/2025 urina lysis , dipst ick Protein + Not Available [facility] [address], [place], [address], 04/22/2025 10:01:51 04/22/20 25 04/22/2025 urina lysis , dipst ick pH 8 Not Available [facility], [place], [address], 04/22/2025 10:01:51 04/22/20 25 04/22/2025 urina lysis , dipst ick Blood + Not Available [facility], [place], [address], 04/22/2025 10:01:51 04/22/2004/22/2025 urina lysis , dipst ick Specific [place] 1.010 Not Available [facility] [address], [place], [address], 04/22/2025 10:01:51 04/22/2004/22/2025 urina lysis , dipst ick Ketone + Not Available [facility], [place], [address], 04/22/2025 10:01:51 06/23/2006/23/2025 HEMAT OCRIT (HCT) HCT 35.6 % (based on docume nted legal sex) 34.0-4 5.0 Not Available [facility] (Lab) [address] [facility], [place], [address], 06/24/2025 11:45:32 06/23/20 25 06/23/2025 HEMOG LOBIN (HGB) HGB 11.1 g/dL (based on docume nted legal sex) 11.6-1 5.4 low Not Available [facility] (Lab) [address] [facility], [place], [address], 06/24/2025 11:45:32 06/23/20 25 06/23/2025 GTT - GESTA ROLAND L SCREE N, ACOG OB glucose, 1 hour screen 180 mg/dL 70-135 high Not Available [facility] (Lab) [address] [facility], [place], [address], 06/24/2025 11:45:33 06/23/20 25 06/23/2025 HIV 1/2 ANTIG EN/AN TIBOD Y, REFLE X CONFI RMATI ON HIV antigen/anti body Nonrea ctive nonrea ctive HIV-1 antig en and HIV-1 /HIV- 2 antib odies were not detec greg. No labor atory evide nce of HIV infec tion. Not Available [facility] (Lab) [address] [facility], [place], [address], 06/24/2025 11:45:33 06/23/20 25 06/23/2025 RPR SCREE N, REFLE X TITER /CONF IRMAT ION RPR qualitative Nonrea ctive nonrea ctive Not Available [facility] (Lab) [address] [facility], [place], [address], 06/24/2025 11:45:34 07/21/20 25 07/21/2025 CULTU RE: URINE result report SEE RESULT S BELOW Test: Cultu re: Urine Speci men Sourc e: Urine - Clean Catch Speci men Type: Urine Speci men Date: 2024 1024 Resul t Date: 2024 0252 Resul t Statu s: Final resul t Abnor mal: No Resul ting Lab: [facility] [address] [facility] [address] Tel: CULTU RE ----- ----- ----- --- No growt h in 1 day (dete ction level of 10,00 0 colon ies / ml.) Not Available [facility] (Lab) [address] [place], [address], 07/23/2025 03:57:01 07/21/2007/21/2025 urina lysis , dipst ick Leukocytes ++ Not Available [address], [place], [address], 07/21/2025 11:03:04 07/21/20 25 07/21/2025 urina lysis , dipst ick Nitrite neg Not Available [facility] [address], [place], [address], 07/21/2025 11:03:04 07/21/20 25 07/21/2025 urina lysis , dipst ick Urobilinogen neg Not Available [facility] [address], [place], [address], 07/21/2025 11:03:04 07/21/20 25 07/21/2025 urina lysis , dipst ick Protein + Not Available [address], [place], [address], 07/21/2025 11:03:04 07/21/20 25 07/21/2025 urina lysis , dipst ick pH 5 Not Available [facility], [place], [address], 07/21/2025 11:03:04 07/21/20 25 07/21/2025 urina lysis , dipst ick Specific [place] 1.030 Not Available [facility], [place], [address], 07/21/2025 11:03:04 07/21/20 25 07/21/2025 urina lysis , dipst ick Ketone +++ Not Available [address], [place], [address], 07/21/2025 11:03:04 07/21/20 25 07/21/2025 urina lysis , dipst ick Bilirubin neg Not Available [facility] [address], [place], [address], 07/21/2025 11:03:04 07/21/20 25 07/21/2025 urina lysis , dipst ick Glucose neg Not Available [address], [place], [address], 07/21/2025 11:03:04 07/21/20 25 07/21/2025 urina lysis , dipst ick Appearance cloudy Not Available [facility] [address], [place], [address], 07/21/2025 11:03:04 07/21/20 25 07/21/2025 urina lysis , dipst ick Color dark Not Available [address], [place], [address], 07/21/2025 11:03:04 08/04/20 25 08/04/2025 CMP(C OMPRE HENSI VE METAB OLIC PANEL ) sodium 138 mmol/ L 133-14 6 Not Available [facility] (Lab) [address] [facility], [place], [address], 08/05/2025 13:39:18 08/04/20 25 08/04/2025 CMP(C OMPRE HENSI VE METAB OLIC PANEL ) potassium 4.0 mmol/ L 3.5-5. 1 Not Available [facility] (Lab) [address] [facility], [place], [address], 08/05/2025 13:39:18 08/04/20 25 08/04/2025 CMP(C OMPRE HENSI VE METAB OLIC PANEL ) chloride 105 mmol/ L 98-107 Not Available [facility] (Lab) [address] [facility], [place], [address], 08/05/2025 13:39:18 08/04/20 25 08/04/2025 CMP(C OMPRE HENSI VE METAB OLIC PANEL ) carbon dioxide 25 mmol/ L 21-31 Not Available [facility] (Lab) [address] [facility], [place], [address], 08/05/2025 13:39:18 08/04/20 25 08/04/2025 CMP(C OMPRE HENSI VE METAB OLIC PANEL ) anion gap 8 mmol/ L 4-13 Not Available [facility] (Lab) [address] [facility], [place], [address], 08/05/2025 13:39:18 08/04/20 25 08/04/2025 CMP(C OMPRE HENSI VE METAB OLIC PANEL ) blood urea nitrogen 10 mg/dL 7-25 Not Available [facility] (Lab) [address] [facility], [place], [address], 08/05/2025 13:39:18 08/04/20 25 08/04/2025 CMP(C OMPRE HENSI VE METAB OLIC PANEL ) creatinine 0.41 mg/dL 0.60-1 .30 low Not Available [facility] (Lab) [address] [facility], [place], [address], 08/05/2025 13:39:18 08/04/20 25 08/04/2025 CMP(C OMPRE HENSI VE METAB OLIC PANEL ) egfrcr (CKD-epi 2020) >90 mL/mi n/1.7 3_m2 >=60 Not Available [facility] (Lab) [address] [facility], [place], [address], 08/05/2025 13:39:18 08/04/20 25 08/04/2025 CMP(C OMPRE HENSI VE METAB OLIC PANEL ) calcium 8.9 mg/dL 8.3-10 .5 Not Available [facility] (Lab) [address] [facility], [place], [address], 08/05/2025 13:39:18 08/04/20 25 08/04/2025 CMP(C OMPRE HENSI VE METAB OLIC PANEL ) glucose 116 mg/dL 70-100 high Not Available [facility] (Lab) [address] [facility], [place], [address], 08/05/2025 13:39:18 08/04/20 25 08/04/2025 CMP(C OMPRE HENSI VE METAB OLIC PANEL ) protein, total 6.1 g/dL 6.4-8. 3 low Not Available [facility] (Lab) [address] [facility], [place], [address], 08/05/2025 13:39:18 08/04/20 25 08/04/2025 CMP(C OMPRE HENSI VE METAB OLIC PANEL ) albumin 3.5 g/dL 3.5-5. 0 Not Available [facility] (Lab) [address] [facility], [place], [address], 08/05/2025 13:39:18 08/04/20 25 08/04/2025 CMP(C OMPRE HENSI VE METAB OLIC PANEL ) ALT 11 units /L 9-43 Not Available [facility] (Lab) [address] [facility], [place], [address], 08/05/2025 13:39:18 08/04/20 25 08/04/2025 CMP(C OMPRE HENSI VE METAB OLIC PANEL ) alkaline phosphatase 98 units /L 34-104 Not Available [facility] (Lab) [address] [facility], [place], [address], 08/05/2025 13:39:18 08/04/20 25 08/04/2025 CMP(C OMPRE HENSI VE METAB OLIC PANEL ) AST 15 units /L 13-39 Not Available [facility] (Lab) [address] [facility], [place], [address], 08/05/2025 13:39:18 08/04/2008/04/2025 CMP(C OMPRE HENSI VE METAB OLIC PANEL ) bilirubin, total 0.3 mg/dL 0.2-1. 2 Not Available [facility] (Lab) [address] [facility], [place], [address], 08/05/2025 13:39:18 08/04/20 25 08/04/2025 BILE ACIDS , TOTAL bile acids, total 4 umol/ L 0-10 Test Perfo rmed by: [facility] [address] [address] Not Available [facility] (Lab) [address] [facility], [place], [address], 08/05/2025 13:39:19 03/02/20 25 03/02/2025 US, obste tric, nucha l trans lucen cy No observ ation record ed. [email or web address] [address], [place], [address], 03/02/2025 13:35:30 03/02/20 25 03/02/2025 US, obste tric, nucha l trans lucen cy No observ ation record ed. [email or web address] [address], [place], [address], 03/03/2025 14:08:39 03/08/20 25 03/08/2025 US, obste tric, 1st trime ster No observ ation record ed. [email or web address] [address], [place], [address], 03/08/2025 12:22:22 03/08/20 25 03/08/2025 US, obste tric, 1st trime ster No observ ation record ed. [email or web address] [address]sha [address], [place], [address], 03/10/2025 15:03:13 04/01/20 25 03/24/2025 qamar r monit or No observ ation record ed. [address] [facility], [place], [address], 04/08/2025 12:36:45 04/01/20 25 03/22/2025 qamar r monit or No observ ation record ed. [address] (Pulmonary) [address] [place] [address] [place] [address], [address], 04/06/2025 08:59:34 04/20/20 25 04/20/2025 US, obste tric, limit ed No observ ation record ed. [email or web address] [address], [place], [address], 04/20/2025 17:39:30 04/20/20 25 04/20/2025 US, obste tric, follo w-up No observ ation record ed. [email or web address] [address] [place] [address] [address], [place], [address], 04/23/2025 08:32:54 04/28/20 25 04/28/2025 US, obste tric, 2nd or 3rd trime ster No observ ation record ed. [email or web address] [address], [place], [address], 04/28/2025 17:48:42 04/28/20 25 04/28/2025 US, obste tric, 2nd or 3rd trime ster No observ ation record ed. [email or web address] [address], [place], [address], 05/04/2025 22:16:11 05/07/20 25 05/07/2025 non-s tress test No observ ation record ed. [address], [place], [address], 05/28/2025 13:33:54 05/21/20 25 05/21/2025 CT, head + brain , w/o contr ast No observ ation record ed. [address], [place], [address], 05/24/2025 13:48:57 05/28/20 25 05/28/2025 US, obste tric, follo w-up No observ ation record ed. [email or web address] [address], [place], [address], 05/28/2025 17:32:34 05/28/2005/28/2025 US, obste tric, follo w-up No observ ation record ed. [email or web address] [address], [place], [address], 06/01/2025 15:13:13 06/08/20 25 06/07/2025 US, obste tric, follo w-up No observ ation record ed. [email or web address] [facility] [address] [facility], [place], [address], 06/15/2025 10:53:46 07/07/20 25 07/07/2025 US, obste tric, follo w-up No observ ation record ed. [email or web address] [address], [place], [address], 07/07/2025 13:18:01 07/07/20 25 07/07/2025 US, obste tric, follo w-up No observ ation record ed. [email or web address] [address], [place], [address], 07/07/2025 11:29:37 08/04/20 25 08/04/2025 US, obste tric, follo w-up No observ ation record ed. [email or web address] [address], [place], [address], 08/04/2025 15:08:50 08/04/20 25 08/04/2025 US, obste tric, follo w-up No observ ation record ed. [email or web address] [address], [place], [address], 08/06/2025 10:41:50 08/11/2008/11/2025 non-s tress test No observ ation record ed. [email or web address] [facility], [place], [address], 08/11/2025 17:37:52 08/11/20 non-s tress test No observ ation record ed. [email or web address] [facility] [address], [place], [address], 08/11/2025 17:38:11 08/15/2008/15/2025 non-s tress test No observ ation record ed. [place] [id number] [facility] [address], [place], [address], 08/21/2025 10:18:57 08/15/2008/15/2025 US, obste tric, bioph ysica l profi le No observ ation record ed. [place] [id number] [facility] [address], [place], [address], 08/17/2025 10:50:53 08/18/2008/18/2025 US, obste tric, bioph ysica l profi le + non-s tress test No observ ation record ed. [email or web address] [address], [place], [address], 08/18/2025 10:21:39 08/18/2008/18/2025 US, obste tric, bioph ysica l profi le + non-s tress test No observ ation record ed. [email or web address] [address]sha [address], [place], [address], 08/18/2025 10:35:44 08/18/2008/18/2025 non-s tress test No observ ation record ed. [email or web address] [facility] [address], [place], [address], 08/18/2025 17:34:03 08/18/20 non-s tress test No observ ation record ed. [email or web address] [address], [place], [address], 08/18/2025 16:06:09 08/25/2008/25/2025 US, obste tric, bioph ysica l profi le + non-s tress test No observ ation record ed. [email or web address] Beccaria [address], [place], [address], 08/25/2025 18:52:06 08/25/2008/25/2025 US, obste tric, follo w-up No observ ation record ed. joelle Esha [address], [place], [address], 08/25/2025 15:47:28 08/25/2008/25/2025 non-s tress test No observ ation record ed. [address], [place], [address], 08/25/2025 18:12:15 08/25/20 non-s tress test No observ ation record ed. [address], [place], [address], 08/25/2025 17:21:19 08/30/2008/30/2025 imagi ng/di agnos tic resul t No observ ation record ed. [address] [place] [address], [address], 08/31/2025 18:17:32 09/01/2009/01/2025 non-s tress test No observ ation record ed. [address] [facility], [place], [address], 09/13/2025 11:32:22 09/01/2009/01/2025 US, obste tric No observ ation record ed. [address], [place], [address], 09/02/2025 15:56:01 09/01/20 25 09/01/2025 non-s tress test No observ ation record ed. [address], [place], [address], 09/02/2025 14:32:38 Result Notes None recorded. Problems Name Problem SNOMED Code Status Onset Date Resolution Date Notes Provider Name and Address Organization Details Recorded Time Hypereme sis 632128547 Completed phenerga n now prn Asia arias rachel [facility] 2 16:43:51 Anxiety in pregnanc y [id number] Completed will continue to monitor Asia Baileyrafakandyganeshpetrona arias rachel [facility] 2 16:43:51 Past pregnanc y history of gestatio nal diabetes mellitus [id number] Completed Early 1 hr GTT @ 20wks 11/03 APPT Asia Baileyrafakandyganeshpetrona arias [facility] 2 16:43:51 Spinal muscular atrophy [id number] Completed Carrier - Not in contact with FOB. Asia Luis hugo rachel [facility] 2 16:43:51 Anxiety 85441701 Completed prozac Karina ramos [facility] 4 11:00:46 Nausea 757811302 Completed d/c zofran pump 11/08 per pt request Karina ramos [facility] 4 11:00:46 Postpart um hemorrha ge [id number] Completed 2017 with d&c Karina ramos [facility] 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 10:15:13 Amenorrh ea 29451188 Completed 202007/10/2021 Tammi ramos [facility] 13:08:35 Pregnanc y 26726410 Completed 202003/29/2022 Karina Burroughs null, [facility] 4 11:00:49 Pregnanc y 84855367 Completed 202304/22/2024 Karina Burroughs null, [facility] 4 11:00:49 Headache 55629016 Active 2023 Karina Heike null, [facility] 5 16:19:28 Pregnanc y 11790708 Active 2023 Karina Heike null, [facility] 5 16:19:28 Uncompli cated moderate persiste nt asthma 250599095 Active 2024 albutero l prn Shawn Bradley MD [address], [place], [address], [facility] 5 13:08:36 Anxiety 79923634 Active 2024 sertrali ne started 03/02/25 changed to prozac 10 on Shawn Bradley MD [address], [place], [address], [facility] 5 17:05:48 Nausea and vomiting 46748962 Active 2024 Shawn Bradley MD [address], [place], [address], [facility] 5 13:20:27 Placenta circumva llata 5714836 Active 2024 32wk growth Ryann Castro null, [facility] 5 09:44:35 Frequent headache 112724405 Active 2024 transpor t to [facility] [...] 2-3 times a week. Ryann Matthew ramos [facility] 5 10:55:26 Abnormal placenta affectin g manageme nt of mother 35001713 Active 2024 [facility] serial growth us Ryann Castro rachel [facility] 10:46:25 Iron deficien cy anemia 48240979 Active 2024 [facility] tx venofer 200mg x1 HGB 10.6 Ryann Castro rachel [facility] 5 15:21:25 Gestatio nal diabetes mellitus 22613603 Active 2024 checking bs QID - ruled in GDM Referral faxed to [facility] 07/07 Ryann Castro rachel [facility] 14:36:52 Notes:Order faxed to [facility] access 08/10 for PICC line, and home health already caring for pt. Vladimir RN at [phone] Problem Notes None recorded. Procedures Surgical History Date Name Laterality Status Provider Name and Address Organization Details Recorded Time 025 SALPINGECTOMY, LAPAROSCOPIC (SURG) completed Not Available [facility] 09/06/2025 11:19:17 025 Date of Last Pap Smear completed Karina Burroughs [facility] 01/28/2025 11:19:42 024 Nexplanon Removal completed Shawn Bradley MD [address], [place], [address], [facility] 08/05/2024 15:09:58 024 Control Implant Insertion completed Anju Mcnamara CNM [address], [place], [address], [facility] 05/08/2024 17:59:34 024 cholecystectomy completed Karina Burroughs [facility] 03/31/2025 09:18:57 018 Dilation and Curettage completed Karina Burroughs [facility] 07/05/2021 10:17:50 Imaging Results None recorded. Procedure Notes None recorded. Medical Equipment None Reported. Allergies Allergen ID Allergen Name Allergen Category Reaction Reaction Severity Criticality Documentation Date Start Date Code Code System Note Provider Name and Address Organization Details Recorded Time 12732 terbutali ne medicatio n anaphylax is Not available Not available 01/27/20252021 47130 RxNorm Karina Burroughs [facility], [facility] 16:19:27 50482 amoxicill in medicatio n Not available Not available Not available 09/10/2025 723 RxNorm Not Available [employer] External [employer] - prod 16:39:37 94488 terbinafi ne medicatio n anaphylax is Not available [facility] 09/10/20252024 17664 RxNorm Not Available [employer] - prod 16:40:54 Medications Name [...] Prescrib ed Elsewher e: Yes Loca tion: [facility] odify By: [email or web address] Encounte r DateTime [...] n (supplie d by office) insert lot [id number] Exp 01/2026 Not Available Not Available Not Available 28 mg iron-800 mcg tablet 07/05 completed Prescrib ed [facility] e: Yes Loca tion: [facility] odify By: prabhjot barrera DateTime : 01/14/20 10:45:00 AM Not Available Not Available Not Available lidocaine 5 % topical ointment APPLY OINTMENT EXTERNAL LY TO RIBS THREE TIMES DAILY NEEDED 01/14 completed Not Available Not Available Not Available 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 08/18/2025 10:57:44 Date Recorded Body height Body weight Systolic And Diastolic Provider Name and Address Organization Details Last Updated DateTime 08/18/2025 162.56 cm 71945.9960 8 g 116/77 mm[Hg] Emma Elkinsfredi [facility] 08/18/2025 16:03:36 Social History Question Answer Notes LastModified by Organizat ion Details LastModified Time Tobacco Smoking Status Former Smoker Karina ramos, [facility] 07/05/2021 09:06:21 If You Are , What Was Your Level Of Alcohol Consumption Prior To ? Occasional [email or web address] Information not available 03/31/2025 Are You Blind Or Do You Have Difficulty Seeing? No [email or web address] Information not available 07/05/2021 What Is Your Level Of Caffeine Consumption? Heavy [email or web address] Information not available 07/05/2021 In The 14 Days Before Symptom Onset, Have You Had Close Contact With A Laboratory-confir med COVID-19 While That Case Was Ill? No [email or web address] Information not available 07/05/2021 In The 14 Days Before Symptom Onset, Have You Had Close Contact With A Person Who Is Under Investigation For COVID-19 While That Person Was Ill? No [email or web address] Information not available 07/05/2021 Have You Been To An Area Known To Be High Risk For COVID-19? No [email or web address] Information not available 07/05/2021 Are You Deaf Or Do You Have Serious Difficulty Hearing? No [email or web address] Information not available 07/05/2021 What Type Of Diet Are You Following? REGULAR [email or web address] Information not available 07/05/2021 Which Illicit Or Recreational Drugs Have You Used? Marijuana [email or web address] Information not available 07/05/2021 Have You Ever Been Counseled For Unhealthy Alcohol Use? No [email or web address] Information not available 07/05/2021 Do You Use Your Seat Belt Or Car Seat Routinely? Yes [email or web address] Information not available 07/05/2021 Do You Have Smoke And Carbon Monoxide Detectors In Your Home? Yes [email or web address] Information not available 07/05/2021 Do You Use Sunscreen Routinely? Yes [email or web address] Information not available 07/05/2021 Has Tobacco Cessation Counseling Been Provided? No [email or web address] Information not available 07/05/2021 Have You Used IV Drugs? No [email or web address] Information not available 07/05/2021 Do You Have Difficulty Walking Or Climbing Stairs? No [email or web address] Information not available 12/06/2021 Sex: Unknown Functional Status Question Answer Note LastModified by Organizat ion Details LastModified Time Do you use any illicit or recreational drugs? Yes [email or web address] Information not available 07/05/2021 Do you or have you ever used any other forms of tobacco or nicotine? Yes Information not available 07/05/2021 What is your level of alcohol consumption? None [email or web address] Information not available 03/31/2025 Do you or have you ever used smokeless tobacco? Never used smokeless tobacco Information not available 07/05/2021 Are you able to walk independently without assistance or assistive devices? YESWOREST [email or web address] Information not available 07/05/2021 Are you able to care for yourself independently? Yes [email or web address] Information not available 12/06/2021 Do you have difficulty dressing, bathing, grooming, or toileting? No [email or web address] Information not available 12/06/2021 Do you or have you ever used e-cigarettes or vape? Current user of electronic cigarettes [email or web address] Information not available 07/05/2021 What is your exercise level? Occasional [email or web address] Information not available 07/05/2021 Mental Status Question Answer Note LastModified by Organization D etails LastModified Time Do you feel stressed (tense, restless, nervous, or anxious, or unable to sleep at night)? [id number] [email or web address] Information not available 07/05/2021 Family History Relationship Description Onset Age of this Age Resolved Age Notes LastModified by Organization Details LastModified Time Father No current problems or disability [email or web address] Not available 05/2021 09:06:31 Mother No current [...] ICD10 Code Diagnosis IMO Codes Diagnosis Note [id number] Anju Mcnamara CNM [facility] [address] [address] 07/21/2025 09:28:54 07/21/2025 12:36:06 Pain in pelvis 97470251 R10.2 733450 Gestation period, 32 weeks 0877817 Z3A.32 1823492 [id number] Shawn Bradley MD [facility] [address],[place] [address] 08/04/2025 14:02:59 08/04/2025 15:06:33 Gestational diabetes mellitus 02606076 O24.410 O43.103 O43.113 Z3A.34 77586463 [id number] [facility] [address],[place] [address] 08/04/2025 14:21:57 08/04/2025 15:26:03 Gestation period, 34 weeks 19207826 Z3A.34 2575919 Pruritic d isorder of skin 5998185097 L29.9 31679 plan labs today, ursadiol BID [id number] [facility] [address],[place] [address] 1 08/11/2025 14:51:38 08/11/2025 17:16:44 Gestational diabetes mellitus 62074118 O24.414 38984330 [id number] [facility] [address] [place] [address] 08/11/2025 16:25:59 08/11/2025 17:46:32 Gestational diabetes mellitus 96254766 O24.414 22254310 [id number] Shawn Bradley MD [facility] [address],[place] [address] 08/18/2025 09:40:51 08/18/2025 10:15:47 Gestational diabetes mellitus 19645630 O24.414 Z3A.36 50872868 [id number] Anju Mcnamara CNM [facility] [address],[place] [address] 08/18/2025 09:41:06 08/18/2025 11:24:04 Gestation period, 36 weeks 25229677 Z3A.36 0138665 cont pnv [id number] [facility] [address] [address] 08/18/2025 09:41:16 08/18/2025 16:17:31 Gestational diabetes mellitus class A2 16319235 O24.414 42406415 Health Concerns Section Related Observation LastModified by Organization Detai ls LastModified Time None Recorded Concern Status LastModified by Organization Details LastModified Time None Recorded Payers Encounter Date Sequence Insurance Name Policy Number Policy Roberts Covered Member ID Roberts Member ID Guarantor Name 08/18/2025 1 FLOOD [facility] (MEDICAID HMO) [id number] Yuni Mejia [id number] Yuni Mejia Notes Date Note Type Note Provider Name and Address Organization Details Recorded Time 08/18/2025 text/html Generic HPI TemplateReported by Patient Anju Genie Mcnamara CNM [address], [place], [address], [facility] 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 Status 03/02/20 25 1 B Positive 164 OPEN Fetus Data First Name Last Name Admitted to NICU Weight (g) Sex Living Outcome Pediatric Complications Fetus ID Race Codes Race Delivery Type [id number] Problems Problem Notes SDH form completed 5GI consult Tachycardia Holter monitor 72 order- pt sent back on 03-27-25 Cardiology referral faxed per Dr Martínez office calling pt 04/21 to schedule consult scheduled 05/11 11:15AM Problem Name Start Date End Date Resolution Snomed Code Not e Uncomplicated moderate persistent asthma 03/02/2025 790586337 albuterol prn Abnormal placenta affecting management of mother 05/04/2025 31303946 [facility]CI serial grow th us Iron deficiency anemia 05/25/2025 14773125 [facility] tx veno godro 200mg x1 HGB 10.6 Nausea and vomiting 03/02/2025 26344936 Anxiety 03/02/2025 53995527 sertralin e started 03/02/25 changed to prozac 10 on Gestational diabetes mellitus 07/08/2025 06647096 checking bs QID - ruled in GDM Referral faxed to [facility] 07/07 Frequent headache 05/03/2025 [id number] [place] to [facility] 05/21, discharge 05/23 MF referral faxed 05/24 SS Neurology consult pending per KAJAL Pittman [facility]- Neuro [facility] unable to see pt due to insurance 05/[facility] 07/05/25 Level US & Consult (see [facility] consult zayas recommendations ) regimen prn Imitrex 50mg for acute migraine, vitamin B2 (Riboflavin) 400mg, Coenzyme q10 300mg and magnesium oxide 200 to 600mg daily. minimize use of Excedrin or Tylenol to no more than 2-3 times a week. 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/2025 3094408 32wk growth us Jun Calculation Initial Jun [...] Weight in lbs Pre/Post Dialysis Refused Weight 158.853800588010 BP Diastolic BP Location Tested BP Systolic [...] Weight in lbs Pre/Post Dialysis Refused Weight 158.006613102576 BP Diastolic BP Location Tested BP Systolic [...] Weight in lbs Pre/Post Dialysis Refused Weight 162.645004465254 BP Diastolic BP Location Tested BP Systolic BP Type 78 123 Fetus Heart Rate Present A 148 Fetus Movement A Yes Comments Patient is having having ronny n, cramping and vaginal discharge. went to ed exam done cultures and rx sent, ?FM, await athlete manager results rfilled zofran, precautions and education f/u [...] Type Weight in lbs Pre/Post Dialysis Refused 168.436686099114 BP Diastolic BP Location Tested BP Systolic [...] Type Weight in lbs Pre/Post Dialysis Refused 169.165244928935 BP Diastolic BP Location Tested BP Systolic [...] Weight in lbs Pre/Post Dialysis Refused Weight 175.781353843896 BP Diastolic BP Location Tested BP Systolic BP Type 68 L arm 115 sitting Fetus Heart Rate Present Fetus Movement A Yes Comments migraines resolved, +FM seei ng mfm us here reviewed wnl f/u 4 weeks gct Flowsheet Date 06/23/2025 Gibsno Score Blood Edema Fundus Height Fundus Units [...] Weight in lbs Pre/Post Dialysis Refused Weight 182.272833283582 BP Diastolic BP Location Tested BP Systolic [...] Weight in lbs Pre/Post Dialysis Refused Weight 181.789225756324 BP Diastolic BP Location Tested BP Systolic BP Type 73 L arm 131 sitting Fetus Heart Rate Present Fetus Movement A Yes Comments viral URI testied neg at urg ent care, nausea resolved, efw 68%, +FM plan education and precautions f/u 2 weeks diagnosed GDM, 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, gave list reviewed protein vs carb Flowsheet Date 07/21/2025 Gibson Score Blood Edema Fundus Height Fundus Units Glucose Ketones Leukocytes Nitrite Labor Signs Protein Cervic Dilation Cervic Effacement Cervic Station Type Weight in lbs Pre/Post Dialysis Refused Weight 181.832257025465 BP Diastolic BP Location Tested BP Systolic BP Type 78 L arm 127 sitting Fetus Heart Rate Present A 150 Fetus Movement A Yes Comments rpt urine culture +FM review ed blood sugars, meets with aircraft general repair mechanic today, precautions and education f/u 2 weeks [...] Weight in lbs Pre/Post Dialysis Refused Weight 181.771474543116 BP Diastolic BP Location Tested BP Systolic [...] Weight in lbs Pre/Post Dialysis Refused Weight 183.002237064141 BP Diastolic BP Location Tested BP Systolic [...] Type Weight in lbs Pre/Post Dialysis Refused 184.111303069516 BP Diastolic BP Location Tested BP Systolic [...] Type Weight in lbs Pre/Post Dialysis Refused 184.651286484787 BP Diastolic BP Location Tested BP Systolic [...] Type Weight in lbs Pre/Post Dialysis Refused 184.910544476318 BP Diastolic BP Location Tested BP Systolic [...] Weight in lbs Pre/Post Dialysis Refused Weight 184.889308694244 BP Diastolic BP Location Tested BP Systolic [...]
--- OUTSIDE RECORDS SUMMARY | 2025-09-14 00:24 | XMS_ITS | Continuity of Care Document ---
Author Organization [facility], [facility] Address [address] [place] [address] [address] Care Team Providers Care Infectious Disease Technician Name Role Phone CARLOS ESTRADA Primary Care Provider Assessment No assessment recorded. Plan of Treatment Reminders Order Date Submit Date Provider Last Modified By Organization Details Last Modified Time Details Appointments None recorded. Lab None recorded. Referral None recorded. Procedures None recorded. Surgeries None recorded. Imaging US, obstetric, biophysical profile + non-stress test 2024 025 [facility], [address], [place], [address], 18:52:06 Medication Orders None recorded. Patient TargetsNo targets recorded. Patient InstructionsNo instructions recorded. Reason for Referral None Reported. Results Created Date Observation Date Name Description Value Unit Range Abnormal Flag Note LastModifiedBy Organization Detail LastModifiedTime 03/06/2003/06/2025 [UNIT Y] ANEUP LOIDY NIPT fraction 5.7% normal Not Available [facility] [address], [place], [address], 03/06/2025 03:58:26 03/06/20 25 03/06/2025 [UNIT Y] ANEUP LOIDY NIPT sex chromosome aneuploidy NOT DETECT ED normal Not Available [facility] [address], [place], [address], 03/06/2025 03:58:26 03/06/20 25 03/06/2025 [UNIT Y] ANEUP LOIDY NIPT monosomy X LOW RISK <1 in 10,000 normal Not Available [facility] [address], [place], [address], 03/06/2025 03:58:26 03/06/20 25 03/06/2025 [UNIT Y] ANEUP LOIDY NIPT trisomy 13 LOW RISK <1 in 10,000 normal Not Available [facility] [address], [place], [address], 03/06/2025 03:58:26 03/06/20 25 03/06/2025 [UNIT Y] ANEUP LOIDY NIPT trisomy 18 LOW RISK <1 in 10,000 normal Not Available [facility] [address], [place], [address], 03/06/2025 03:58:26 03/06/20 25 03/06/2025 [UNIT Y] ANEUP LOIDY NIPT trisomy 21 LOW RISK <1 in 10,000 normal Not Available [facility] [address], [place], [address], 03/06/2025 03:58:26 03/06/20 25 03/06/2025 [UNIT Y] ANEUP LOIDY NIPT sex FEMALE normal Not Available [facility] [address], [place], [address], 03/06/2025 03:58:26 03/06/20 25 03/06/2025 [UNIT Y] ANEUP LOIDY NIPT gestation SINGLE TON normal Not Available [facility] [address], [place], [address], 03/06/2025 03:58:26 03/06/20 25 03/06/2025 [UNIT Y] ANEUP LOIDY NIPT for detailed report, see pdf See PDF normal Not Available [facility] [address], [place], [address], 03/06/2025 03:58:26 03/02/2003/02/2025 CULTU RE: URINE result report SEE RESULT S BELOW Test: Cultu re: Urine Speci men Sourc e: Urine - Clean Catch Speci men Type: Urine Speci men Date: 1455 Resul t Date: 025 2138 Resul t Statu s: Final resul t Abnor mal: No Resul ting Lab: [facility] [address] [facility] [address] Tel: CULTU RE ----- ----- ----- --- No growt h in 1 day (dete ction level of 10,00 0 colon ies / ml.) Not Available [facility] (Lab) [address] [facility], [place], [address], 03/03/2025 22:42:27 03/12/2003/12/2025 CULTU RE: URINE result report SEE RESULT S BELOW Test: Cultu re: Urine Speci men Sourc e: Urine - Clean Catch Speci men Type: Urine Speci men Date: 2024 1600 Resul t Date: 2024 0610 Resul t Statu s: Final resul t Abnor mal: No Resul ting Lab: [facility] [address] [facility] [address] Tel: CULTU RE ----- ----- ----- --- No growt h in 1 day (dete ction level of 10,00 0 colon ies / ml.) Not Available [facility] (Lab) [address] [place], [address], 03/14/2025 07:15:03 03/12/2003/12/2025 urina lysis , dipst ick Leukocytes ++ Not Available [address], [place], [address], 03/12/2025 16:45:06 03/12/2003/12/2025 urina lysis , dipst ick Protein + Not Available [facility] [address], [place], [address], 03/12/2025 16:45:06 03/12/20 25 03/12/2025 urina lysis , dipst ick pH 5 Not Available [facility] [address], [place], [address], 03/12/2025 16:45:06 03/12/20 25 03/12/2025 urina lysis , dipst ick Blood trace Not Available [facility] [address], [place], [address], 03/12/2025 16:45:06 03/12/20 25 03/12/2025 urina lysis , dipst ick Specific [place] 1.015 Not Available [facility] [address], [place], [address], 03/12/2025 16:45:06 03/12/20 25 03/12/2025 urina lysis , dipst ick Ketone +++ Not Available [facility] [address], [place], [address], 03/12/2025 16:45:06 03/31/20 25 03/31/2025 TSH, REFLE X FREE T4 TSH 0.42 uIU/m L 0.30-5 .33 Not Available [facility] (Lab) [address] [facility], [place], [address], 04/01/2025 03:05:12 03/31/20 25 03/31/2025 CULTU RE: URINE result report SEE RESULT S BELOW Test: Cultu re: Urine Speci men Sourc e: Urine Voide d Speci men Type: Urine Speci men Date: 1710 Resul t Date: 6 Resul t Statu s: Final resul t Abnor mal: No Resul ting Lab: [facility] [address] [facility] [address] Tel: [phone] CULTU RE ----- ----- ----- --- Cultu re resul t (>=3 organ isms prese nt) indic ates possi ble conta minat ion. Repea t cultu re if sympt oms indic ate. Not Available [facility] (Lab) [address] [facility], [place], [address], 04/01/2025 23:59:19 03/31/20 25 03/31/2025 urina lysis , dipst ick Leukocytes +1 Not Available [address], [place], [address], 03/31/2025 09:23:13 03/31/20 25 03/31/2025 urina lysis , dipst ick Nitrite normal Not Available [facility] [address], [place], [address], 03/31/2025 09:23:13 03/31/20 25 03/31/2025 urina lysis , dipst ick Urobilinogen normal Not Available [facility] dav[address], [place], [address], 03/31/2025 09:23:13 03/31/20 25 03/31/2025 urina lysis , dipst ick Protein trace Not Available [facility] [address], [place], [address], 03/31/2025 09:23:13 03/31/20 25 03/31/2025 urina lysis , dipst ick pH 5 Not Available [facility] [address], [place], [address], 03/31/2025 09:23:13 03/31/20 25 03/31/2025 urina lysis , dipst ick Specific [place] 1.020 [facility] Available [facility] [address], [place], [address], 03/31/2025 09:23:13 03/31/20 25 03/31/2025 urina lysis , dipst ick Ketone normal Not Available [facility] [address], [place], [address], 03/31/2025 09:23:13 03/31/20 25 03/31/2025 urina lysis , dipst ick Bilirubin normal Not Available [facility] [address], [place], [address], 03/31/2025 09:23:13 03/31/20 25 03/31/2025 urina lysis , dipst ick Glucose normal Not Available [facility] [address], [place], [address], 03/31/2025 09:23:13 03/31/20 25 03/31/2025 urina lysis , dipst ick Appearance normal Not Available [facility] [address], [place], [address], 03/31/2025 09:23:13 03/31/20 25 03/31/2025 urina lysis , dipst ick Color normal Not Available [facility] [address], [place], [address], 03/31/2025 09:23:13 04/01/20 25 04/01/2025 [facility]IS bacterial vaginosis (bv), tma Negati ve negati ve Not Available [facility] (Lab) [address] [place], [address], 04/02/2025 14:08:45 04/01/20 25 04/01/2025 [facility], DENIS mekhi species, tma Negati ve negati ve Not Available [facility] (Lab) [address] [place], [address], 04/02/2025 14:08:45 04/01/20 25 04/01/2025 WOMEN 'S HEALT H SWAB PLUS, DENIS mekhi glabrata, tma Negati ve negati ve Not Available [facility] (Lab) [address] [place], [address], 04/02/2025 14:08:45 04/01/20 25 04/01/2025 [facility], DENIS trichomonas vaginalis, tma Negati ve negati ve Not Available [facility] (Lab) [address] [place], [address], 04/02/2025 14:08:45 04/01/20 25 04/01/2025 [facility], DENIS chlamydia trachomatis, PCR Negati ve negati ve Not Available [facility] (Lab) [address] [place], [address], 04/02/2025 14:08:45 04/01/20 25 04/01/2025 [facility], DENIS neisseria gonorrhoeae, [...] ded in this panel . Not Available [facility] (Lab) [address] [place], [address], 04/02/2025 14:08:45 04/22/2004/22/2025 CULTU RE: URINE result report SEE RESULT S BELOW Test: Cultu re: Urine Speci men Sourc e: Urine Voide d Speci men Type: Urine Speci men Date: 2024 1314 Resul t Date: 2024 0322 Resul t Statu s: Final resul t Abnor mal: No Resul ting Lab: [facility] [address] [facility] [address] Tel: CULTU RE ----- ----- ----- --- No growt h in 1 day (dete ction level of 10,00 0 colon ies / ml.) Not Available [facility] (Lab) [address], [place], [address], 04/24/2025 04:28:01 04/22/20 25 04/22/2025 urina lysis , dipst ick Leukocytes + Not Available [facility] [address], [place], [address], 04/22/2025 10:01:51 04/22/20 25 04/22/2025 urina lysis , dipst ick Protein + Not Available [facility] [address], [place], [address], 04/22/2025 10:01:51 04/22/20 25 04/22/2025 urina lysis , dipst ick pH 8 Not Available [facility] [address], [place], [address], 04/22/2025 10:01:51 04/22/20 25 04/22/2025 urina lysis , dipst ick Blood + Not Available [facility] [address], [place], [address], 04/22/2025 10:01:51 04/22/20 25 04/22/2025 urina lysis , dipst ick Specific [place] 1.010 Not Available [facility] [address], [place], [address], 04/22/2025 10:01:51 04/22/20 25 04/22/2025 urina lysis , dipst ick Ketone + Not Available [facility] [address], [place], [address], 04/22/2025 10:01:51 06/23/2006/23/2025 HEMAT OCRIT (HCT) HCT 35.6 % (based on docume nted legal sex) 34.0-4 5.0 Not Available [facility] (Lab) [address] [facility], [place], [address], 06/24/2025 11:45:32 06/23/20 25 06/23/2025 HEMOG LOBIN (HGB) HGB 11.1 g/dL (based on docume nted legal sex) 11.6-1 5.4 low Not Available [facility] (Lab) [address] [facility], [place], [address], 06/24/2025 11:45:32 06/23/20 25 06/23/2025 GTT - GESTA ROLAND L SCREE N, ACOG OB glucose, 1 hour screen 180 mg/dL 70-135 high Not Available [facility] (Lab) [address] [place], [address], 06/24/2025 11:45:33 06/23/20 25 06/23/2025 HIV 1/2 ANTIG EN/AN TIBOD Y, REFLE X CONFI RMATI ON HIV antigen/anti body Nonrea ctive nonrea ctive HIV-1 antig en and HIV-1 /HIV- 2 antib odies were not detec greg. No labor atory evide nce of HIV infec tion. Not Available [facility] (Lab) [address] [facility], [place], [address], 06/24/2025 11:45:33 06/23/20 25 06/23/2025 RPR SCREE N, REFLE X TITER /CONF IRMAT ION RPR qualitative Nonrea ctive nonrea ctive Not Available [facility] (Lab) [address] [facility], [place], [address], 06/24/2025 11:45:34 07/21/20 25 07/21/2025 CULTU RE: URINE result report SEE RESULT S BELOW Test: Cultu re: Urine Speci men Sourc e: Urine - Clean Catch Speci men Type: Urine Speci men Date: 2024 1024 Resul t Date: 2024 0252 Resul t Statu s: Final resul t Abnor mal: No Resul ting Lab: [facility] [address] [facility] [address] Tel: CULTU RE ----- ----- ----- --- No growt h in 1 day (dete ction level of 10,00 0 colon ies / ml.) Not Available [facility] (Lab) [address] [facility], [place], [address], 07/23/2025 03:57:01 07/21/20 25 07/21/2025 urina lysis , dipst ick Leukocytes ++ Not Available [address], [place], [address], 07/21/2025 11:03:04 07/21/20 25 07/21/2025 urina lysis , dipst ick Nitrite neg Not Available [facility] [address], [place], [address], 07/21/2025 11:03:04 07/21/20 25 07/21/2025 urina lysis , dipst ick Urobilinogen neg Not Available [facility] [address], [place], [address], 07/21/2025 11:03:04 07/21/20 25 07/21/2025 urina lysis , dipst ick Protein + Not Available [facility] [address], [place], [address], 07/21/2025 11:03:04 07/21/20 25 07/21/2025 urina lysis , dipst ick pH 5 Not Available [facility] [address], [place], [address], 07/21/2025 11:03:04 07/21/20 25 07/21/2025 urina lysis , dipst ick Specific [place] 1.030 Not Available [facility] n[address], [place], [address], 07/21/2025 11:03:04 07/21/20 25 07/21/2025 urina lysis , dipst ick Ketone +++ Not Available [facility] [address], [place], [address], 07/21/2025 11:03:04 07/21/20 25 07/21/2025 urina lysis , dipst ick Bilirubin neg Not Available [facility] [address], [place], [address], 07/21/2025 11:03:04 07/21/20 25 07/21/2025 urina lysis , dipst ick Glucose neg Not Available [facility] [address], [place], [address], 07/21/2025 11:03:04 07/21/20 25 07/21/2025 urina lysis , dipst ick Appearance cloudy Not Available [facility] [address], [place], [address], 07/21/2025 11:03:04 07/21/20 25 07/21/2025 urina lysis , dipst ick Color dark Not Available [address], [place], [address], 07/21/2025 11:03:04 08/04/20 25 08/04/2025 CMP(C OMPRE HENSI VE METAB OLIC PANEL ) sodium 138 mmol/ L 133-14 6 Not Available [facility] (Lab) [address] [facility], [place], [address], 08/05/2025 13:39:18 08/04/20 25 08/04/2025 CMP(C OMPRE HENSI VE METAB OLIC PANEL ) potassium 4.0 mmol/ L 3.5-5. 1 Not Available [facility] (Lab) [address] [facility], [place], [address], 08/05/2025 13:39:18 08/04/20 25 08/04/2025 CMP(C OMPRE HENSI VE METAB OLIC PANEL ) chloride 105 mmol/ L 98-107 Not Available [facility] (Lab) [address] [facility], [place], [address], 08/05/2025 13:39:18 08/04/20 25 08/04/2025 CMP(C OMPRE HENSI VE METAB OLIC PANEL ) carbon dioxide 25 mmol/ L 21-31 Not Available [facility] (Lab) [address] [facility], [place], [address], 08/05/2025 13:39:18 08/04/20 25 08/04/2025 CMP(C OMPRE HENSI VE METAB OLIC PANEL ) anion gap 8 mmol/ L 4-13 Not Available [facility] (Lab) [address] [place], [address], 08/05/2025 13:39:18 08/04/20 25 08/04/2025 CMP(C OMPRE HENSI VE METAB OLIC PANEL ) blood urea nitrogen 10 mg/dL 7-25 Not Available [facility] (Lab) [address] [facility], [place], [address], 08/05/2025 13:39:18 08/04/20 25 08/04/2025 CMP(C OMPRE HENSI VE METAB OLIC PANEL ) creatinine 0.41 mg/dL 0.60-1 .30 low Not Available [facility] (Lab) [address] [facility], [place], [address], 08/05/2025 13:39:18 08/04/20 25 08/04/2025 CMP(C OMPRE HENSI VE METAB OLIC PANEL ) egfrcr (CKD-epi 2020) >90 mL/mi n/1.7 3_m2 >=60 Not Available [facility] (Lab) [address] [facility], [place], [address], 08/05/2025 13:39:18 08/04/20 25 08/04/2025 CMP(C OMPRE HENSI VE METAB OLIC PANEL ) calcium 8.9 mg/dL 8.3-10 .5 Not Available [facility] (Lab) [address] [facility], [place], [address], 08/05/2025 13:39:18 08/04/20 25 08/04/2025 CMP(C OMPRE HENSI VE METAB OLIC PANEL ) glucose 116 mg/dL 70-100 high Not Available [facility] (Lab) [address] [facility], [place], [address], 08/05/2025 13:39:18 08/04/20 25 08/04/2025 CMP(C OMPRE HENSI VE METAB OLIC PANEL ) protein, total 6.1 g/dL 6.4-8. 3 low Not Available [facility] (Lab) [address] [facility], [place], [address], 08/05/2025 13:39:18 08/04/20 25 08/04/2025 CMP(C OMPRE HENSI VE METAB OLIC PANEL ) albumin 3.5 g/dL 3.5-5. 0 Not Available [facility] (Lab) [address] [facility], [place], [address], 08/05/2025 13:39:18 08/04/20 25 08/04/2025 CMP(C OMPRE HENSI VE METAB OLIC PANEL ) ALT 11 units /L 9-43 Not Available [facility] (Lab) [address] [facility], [place], [address], 08/05/2025 13:39:18 08/04/20 25 08/04/2025 CMP(C OMPRE HENSI VE METAB OLIC PANEL ) alkaline phosphatase 98 units /L 34-104 Not Available [facility] (Lab) [address] [facility], [place], [address], 08/05/2025 13:39:18 08/04/20 25 08/04/2025 CMP(C OMPRE HENSI VE METAB OLIC PANEL ) AST 15 units /L 13-39 Not Available [facility] (Lab) [address] [facility], [place], [address], 08/05/2025 13:39:18 08/04/2008/04/2025 CMP(C OMPRE HENSI VE METAB OLIC PANEL ) bilirubin, total 0.3 mg/dL 0.2-1. 2 Not Available [facility] (Lab) [address] [facility], [place], [address], 08/05/2025 13:39:18 08/04/2008/04/2025 BILE ACIDS , TOTAL bile acids, total 4 umol/ L 0-10 Test Perfo rmed by: Luke hernández rn [facility] [address] Not Available [facility] (Lab) [address] [facility], [place], [address], 08/05/2025 13:39:19 03/02/20 25 03/02/2025 US, obste tric, nucha l trans lucen cy No observ ation record ed. [email or web address] [facility] [address], [place], [address], 03/02/2025 13:35:30 03/02/20 25 03/02/2025 US, obste tric, nucha l trans lucen cy No observ ation record ed. [email or web address] [address], [place], [address], 03/03/2025 14:08:39 03/08/20 25 03/08/2025 US, obste tric, 1st trime ster No observ ation record ed. [email or web address] [facility] [address], [place], [address], 03/08/2025 12:22:22 03/08/20 25 03/08/2025 US, obste tric, 1st trime ster No observ ation record ed. [email or web address] [address], [place], [address], 03/10/2025 15:03:13 04/01/20 25 03/24/2025 qamar r monit or No observ ation record ed. [address] [facility], [place], [address], 04/08/2025 12:36:45 04/01/20 25 03/22/2025 qamar r monit or No observ ation record ed. [address] (Pulmonary) [address] [place] [address] [place] [address], [address], 04/06/2025 08:59:34 04/20/20 25 04/20/2025 US, obste tric, limit ed No observ ation record ed. [email or web address] [facility] [address], [place], [address], 04/20/2025 17:39:30 04/20/20 25 04/20/2025 US, obste tric, follo w-up No observ ation record ed. [email or web address] [address], [place], [address], 04/23/2025 08:32:54 04/28/20 25 04/28/2025 US, obste tric, 2nd or 3rd trime ster No observ ation record ed. [email or web address] [facility] [address], [place], [address], 04/28/2025 17:48:42 04/28/20 25 04/28/2025 US, obste tric, 2nd or 3rd trime ster No observ ation record ed. [email or web address] [address], [place], [address], 05/04/2025 22:16:11 05/07/20 25 05/07/2025 non-s tress test No observ ation record ed. [email or web address] [id number] [facility] [address], [place], [address], 05/28/2025 13:33:54 05/21/2005/21/2025 CT, head + brain , w/o contr ast No observ ation record ed. [address], [place], [address], 05/24/2025 13:48:57 05/28/20 25 05/28/2025 US, obste tric, follo w-up No observ ation record ed. [email or web address] [facility] [address], [place], [address], 05/28/2025 17:32:34 05/28/2005/28/2025 US, obste tric, follo w-up No observ ation record ed. [email or web address] [address], [place], [address], 06/01/2025 15:13:13 08/12/06/07/2025 US, obste tric, follo w-up No observ ation record ed. [email or web address] [facility] [address] [facility], [place], [address], 06/15/2025 10:53:46 07/07/20 25 07/07/2025 US, obste tric, follo w-up No observ ation record ed. [email or web address] [facility] [address], [place], [address], 07/07/2025 13:18:01 07/07/2007/07/2025 US, obste tric, follo w-up No observ ation record ed. [email or web address] [address], [place], [address], 07/07/2025 11:29:37 08/04/20 25 08/04/2025 US, obste tric, follo w-up No observ ation record ed. [email or web address] [facility] [address], [place], [address], 08/04/2025 15:08:50 08/04/20 25 08/04/2025 US, obste tric, follo w-up No observ ation record ed. E[address], [place], [address], 08/06/2025 10:41:50 08/11/2008/11/2025 non-s tress test No observ ation record ed. [email or web address] [facility] [address], [place], [address], 08/11/2025 17:37:52 08/11/20 non-s tress test No observ ation record ed. [facility] [address], [place], [address], 08/11/2025 17:38:11 08/15/2008/15/2025 non-s tress test No observ ation record ed. [place] [id number] [facility] [address], [place], [address], 08/21/2025 10:18:57 08/15/2008/15/2025 US, obste tric, bioph ysica l profi le No observ ation record ed. [place] [id number] [facility] [address], [place], [address], 08/17/2025 10:50:53 08/18/2008/18/2025 US, obste tric, bioph ysica l profi le + non-s tress test No observ ation record ed. [email or web address] [facility] [address], [place], [address], 08/18/2025 10:21:39 08/18/2008/18/2025 US, obste tric, bioph ysica l profi le + non-s tress test No observ ation record ed. [email or web address] [address], [place], [address], 08/18/2025 10:35:44 08/18/2008/18/2025 non-s tress test No observ ation record ed. [email or web address] [facility] [address], [place], [address], 08/18/2025 17:34:03 08/18/20 non-s tress test No observ ation record ed. [email or web address] [facility] [address], [place], [address], 08/18/2025 16:06:09 08/25/2008/25/2025 US, obste tric, bioph ysica l profi le + non-s tress test No observ ation record ed. [email or web address] [facility] [address], [place], [address], 08/25/2025 18:52:06 08/25/2008/25/2025 US, obste tric, follo w-up No observ ation record ed. joelle [address], [place], [address], 08/25/2025 15:47:28 08/25/2008/25/2025 non-s tress test No observ ation record ed. [address], [place], [address], 08/25/2025 18:12:15 08/25/20 non-s tress test No observ ation record ed. [email or web address], [place], [address], 08/25/2025 17:21:19 08/30/2008/30/2025 imagi ng/di agnos tic resul t No observ ation record ed. [address] [place] [address], [id number], 08/31/2025 18:17:32 09/01/2009/01/2025 non-s tress test No observ ation record ed. [address] [facility], [place], [address], 09/13/2025 11:32:22 09/01/2009/01/2025 [place], obste tric No observ ation record ed. [address], [place], [address], 09/02/2025 15:56:01 09/01/20 25 09/01/2025 non-s tress test No observ ation record ed. [address] [place] [address], [id number], 09/02/2025 14:32:38 Result Notes None recorded. Problems Name Problem SNOMED Code Status Onset Date Resolution Date Notes Provider Name and Address Organization Details Recorded Time Hypereme sis 499268665 Completed phenerga n now prn Asia arias rachel [facility] 2 16:43:51 Anxiety in pregnanc y [id number] Completed will continue to monitor Asia Baileyrafakandyganeshpetrona arias rachel [facility] 2 16:43:51 Past pregnanc y history of gestatio nal diabetes mellitus [id number] Completed Early 1 hr GTT @ 20wks 11/03 APPT Asia Baileyraafkandyganeshpetrona arias [facility] center [facility] 2 16:43:51 Spinal muscular atrophy 1400788 Completed Carrier - Not in contact with FOB. Asia Baileyrafakandykhris hugo rachel [facility] 2 16:43:51 Anxiety 59129757 Completed prozac Karina ramos [facility] 4 11:00:46 Nausea [id number] Completed d/c zofran pump 11/08 per pt request Karina ramos [facility] 4 11:00:46 Postpart um hemorrha ge [id number] Completed 2017 with d&c Karina ramos [facility] 4 11:00:46 Normal pregnanc y in multigra jessy [id number] 93586 Completed 201907/05/2021 Encounte r for supervis ion of other normal pregnanc y, 3rd trimeste r;Record ed Elsewher e: No Locat ion: Jaelyn castillo [facility] S ource: EHR Accounts Receivable Supervisor yvrose: N Practi ce ID: 0001 Gigi lable Time: 10:45:00 AM Karina ramos [facility] 1 10:15:27 Gestatio n period, 37 weeks [id number] Completed 201907/05/2021 37 weeks gestatio n of pregnanc y;Record ed Elsewher e: No Locat ion: [facility] S ource: EHR Accounts Receivable Supervisor yvrose: N Natalyati ce ID: 0001 Gigi lable Time: 09:00:00 AM Karina ramos [facility] 10:15:[address] Concept Completed 201907/05/2021 Matern care for abnlt fetl hrt rate or rhym, 3rd tri, unsp;Rec orded Elsewher e: No Locat ion: [facility] S ource: EHR Accounts Receivable Supervisor yvrose: N Natalyati ce ID: 0001 Gigi lable Time: 08:45:00 AM Karina ramos [facility] 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 10:15:13 Amenorrh ea 71647239 Completed 202007/10/2021 Tammi ramos [facility] 13:08:35 Pregnanc y 15593856 Completed 202003/29/2022 Karina Burroughs null, [facility] 4 11:00:49 Pregnanc y 62416929 Completed 202304/22/2024 Karina Burroughs null, [facility] 4 11:00:49 Headache 78077173 Active 2023 Karina Heike null, [facility] 5 16:19:28 Pregnanc y 37104997 Active 2023 Karina Burroughs null, [facility] 5 16:19:28 Uncompli cated moderate persiste nt asthma 193213850 Active 2024 albutero l prn Shawn Bradley MD [address], [place], [address], [facility] 5 13:08:36 Anxiety 33843809 Active 2024 sertrali ne started 03/02/25 changed to prozac 10 on Shawn Bradley MD [address], [place], [address], [facility] 5 17:05:48 Nausea and vomiting 19757839 Active 2024 Shawn Bradley MD [address], [place], [address], [facility] 5 13:20:27 Placenta circumva llata 8088567 Active 2024 32wk growth Ryann Castro [facility], [facility] 5 09:44:35 Frequent headache 105892587 Active 2024 transpor t to [facility] 05/21, discharg e 05/23 MFM referral faxed 05/24 [facility] Neurolog y consult pending per Toya, RN [facility]- [facility] unable to [...] 2-3 times a week. Ryann Matthew ramos [facility] 10:55:26 Abnormal placenta affectin g manageme nt of mother 31607665 Active 2024 MCI serial growth us Ryann Castro rachel [facility] 10:46:25 Iron deficien cy anemia 84203704 Active 2024 SS MFM tx venofer 200mg x1 HGB 10.6 Ryann Matthew ramos [facility] 15:21:25 Gestatio nal diabetes mellitus 56459142 Active 2024 checking bs QID - ruled in GDM Referral faxed to [facility] 07/07 Ryann Castro rachel [facility] 14:36:52 Notes:Order faxed to [facility] access 08/10 for PICC line, and home health already caring for pt. Vladimir RN at [phone] Problem Notes None recorded. Procedures Surgical History Date Name Laterality Status Provider Name and Address Organization Details Recorded Time 025 SALPINGECTOMY, LAPAROSCOPIC (SURG) completed Not Available [facility] 09/06/2025 11:19:17 025 Date of Last Pap Smear completed Karina Burroughs [facility] 01/28/2025 11:19:42 024 Nexplanon Removal completed Shawn Bradley MD [address], [place], [address], [place] [facility] 08/05/2024 15:09:58 024 Control Implant Insertion completed Anju Mcnamara, KRISTEN [address], [place], [address], [facility] 05/08/2024 17:59:34 024 cholecystectomy completed Karina Burroughs [facility] 03/31/2025 09:18:57 018 Dilation and Curettage completed Karina Burroughs [facility] 07/05/2021 10:17:50 Imaging Results None recorded. Procedure Notes None recorded. Medical Equipment None Reported. Allergies Allergen ID Allergen Name Allergen Category Reaction Reaction Severity Criticality Documentation Date Start Date Code Code System Note Provider Name and Address Organization Details Recorded Time 99712 terbutali ne medicatio n anaphylax is Not available Not available 01/27/20252021 55396 RxNorm Karina Burroughs [facility], [facility] 16:19:27 73705 amoxicill in medicatio n Not available Not available Not available 09/10/2025 723 RxNorm Not Available [employer] External Data Service - prod 16:39:37 61720 terbinafi ne medicatio n anaphylax is Not available [facility] 09/10/20252024 42805 RxNorm Not Available [employer] Data [employer] - prod 16:40:54 Medications Name [...] Prescrib ed Elsewher e: Yes Loca tion: [facility] odify By: [email or web address] Encounte [...] n (supplie d by office) insert lot [id number] Exp 01/2026 Not Available Not Available Not Available 28 mg iron-800 mcg tablet 07/05 completed Prescrib ed [facility] e: Yes Loca tion: [facility] odify By: prabhjot barrera DateTime : 01/14/20 10:45:00 AM Not Available Not Available Not Available lidocaine 5 % topical ointment APPLY OINTMENT EXTERNAL LY TO RIBS THREE TIMES DAILY NEEDED 01/14 completed Not Available Not Available Not Available 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 08/25/2025 15:41:08 Date Recorded Body height Body mass index (BMI) Body weight Systolic And Diastolic Provider Name and Address Organization Details Last Updated DateTime 08/25/2025 162.56 cm 31.6 kg/m2 31600 g 108/72 mm[Hg] Emma Elkinsfredi [facility] 08/25/2025 17:18:37 Social History Question Answer Notes LastModified by Organizat ion Details LastModified Time Tobacco Smoking Status Former Smoker Karina ramos, [facility] 07/05/2021 09:06:21 If You Are , What Was Your Level Of Alcohol Consumption Prior To ? Occasional Information not available 03/31/2025 Are You Blind Or Do You Have Difficulty Seeing? No [email or web address] Information not available 07/05/2021 What Is Your Level Of Caffeine Consumption? Heavy [email or web address] Information not available 07/05/2021 In The 14 Days Before Symptom Onset, Have You Had Close Contact With A Laboratory-confir med COVID-19 While That Case Was Ill? No Information not available 07/05/2021 In The 14 Days Before Symptom Onset, Have You Had Close Contact With A Person Who Is Under Investigation For COVID-19 While That Person Was Ill? No [email or web address] Information not available 07/05/2021 Have You Been To An Area Known To Be High Risk For COVID-19? No [email or web address] Information not available 07/05/2021 Are You Deaf Or Do You Have Serious Difficulty Hearing? No Information not available 07/05/2021 What Type Of Diet Are You Following? REGULAR [email or web address] Information not available 07/05/2021 Which Illicit Or Recreational Drugs Have You Used? Marijuana Information not available 07/05/2021 Have You Ever Been Counseled For Unhealthy Alcohol Use? No [email or web address] Information not available 07/05/2021 Do You Use Your Seat Belt Or Car Seat Routinely? Yes [email or web address] Information not available 07/05/2021 Do You Have Smoke And Carbon Monoxide Detectors In Your Home? Yes [email or web address] Information not available 07/05/2021 Do You Use Sunscreen Routinely? Yes [email or web address] Information not available 07/05/2021 Has Tobacco Cessation Counseling Been Provided? No [email or web address] Information not available 07/05/2021 Have You Used IV Drugs? No [email or web address] Information not available 07/05/2021 Do You Have Difficulty Walking Or Climbing Stairs? No [email or web address] Information not available 12/06/2021 Sex: Unknown Functional Status Question Answer Note LastModified by Organizat ion Details LastModified Time Do you use any illicit or recreational drugs? Yes [email or web address] Information not available 07/05/2021 Do you or have you ever used any other forms of tobacco or nicotine? Yes [email or web address] Information not available 07/05/2021 What is your level of alcohol consumption? None [email or web address] Information not available 03/31/2025 Do you or have you ever used smokeless tobacco? Never used smokeless tobacco [email or web address] Information not available 07/05/2021 Are you able to walk independently without assistance or assistive devices? YESWOREST [email or web address] Information not available 07/05/2021 Are you able to care for yourself independently? Yes [email or web address] Information not available 12/06/2021 Do you have difficulty dressing, bathing, grooming, or toileting? No [email or web address] Information not available 12/06/2021 Do you or have you ever used e-cigarettes or vape? Current user of electronic cigarettes [email or web address] Information not available 07/05/2021 What is your exercise level? Occasional [email or web address] Information not available 07/05/2021 Mental Status Question Answer Note LastModified by Organization D etails LastModified Time Do you feel stressed (tense, restless, nervous, or anxious, or unable to sleep at night)? [id number] [email or web address] Information not available 07/05/2021 Family History Relationship Description Onset Age of this Age Resolved Age Notes LastModified by Organization Details LastModified Time Father No current problems or disability [email or web address] Not available 05/2021 09:06:31 Mother No current problems or disability [email or web address] Not available 05/2021 09:06:31 Medical History Condition Response Allergies (Food, seasonal, environmental ) N Other N Breast Cancer N Drug/Latex Allergies/Reactions N Blood Transfusion N Lung Disease Y [...] ICD10 Code Diagnosis IMO Codes Diagnosis Note [id number] Shawn Bradley MD [facility] [address] [address] 08/04/2025 14:02:59 08/04/2025 15:06:33 Gestational diabetes mellitus 75940092 O24.410 O43.103 O43.113 Z3A.34 92017905 [id number] [facility] [address] [place] [address] 08/04/2025 14:21:57 08/04/2025 15:26:03 Gestation period, 34 weeks 68591690 Z3A.34 7576782 Pruritic d isorder of skin 5894346140 L29.9 48376 plan labs today, ursadiol BID [id number] Anju Mcnamara [facility] [address] [place] [address] 08/11/2025 14:51:38 08/11/2025 17:16:44 Gestational diabetes mellitus 10102066 O24.414 31569974 [id number] [facility] [address] [place] [address] 08/11/2025 16:25:59 08/11/2025 17:46:32 Gestational diabetes mellitus 87446957 O24.414 [id number] [id number] Shawn Bradley MD [facility] [address] [place] [address] 08/18/2025 09:40:51 08/18/2025 10:15:47 Gestational diabetes mellitus 16569408 O24.414 Z3A.36 17209157 [id number] [facility] [address] [place] [address] 08/18/2025 09:41:06 08/18/2025 11:24:04 Gestation period, 36 weeks 21680138 Z3A.36 6090737 cont pnv [id number] Anju Mcnamara [facility] [address] [place] [address] 08/18/2025 09:41:16 08/18/2025 16:17:31 Gestational diabetes mellitus class A2 20396108 O24.414 08819564 [id number] Shawn Bradley MD [facility] [address] [place] [address] 08/25/2025 14:26:29 08/25/2025 15:14:02 Gestational diabetes mellitus 01078515 O24.414 48223240 [id number] Anju Mcnamara CNM [facility] [address] [address] 08/25/2025 14:26:57 08/25/2025 15:53:52 Gestation period, 37 weeks 28997484 Z3A.37 8331763 continue vitamin [id number] Anju Mcnamara CNM [facility] [address] [address] 08/25/2025 16:48:00 08/25/2025 17:20:42 Gestational diabetes mellitus 50655091 O24.419 [id number] Health Concerns Section Related Observation LastModified by Organization Detai ls LastModified Time None Recorded Concern Status LastModified by Organization Details LastModified Time None Recorded Payers Encounter Date Sequence Insurance Name Policy Number Policy Roberts Covered Member ID Roberts Member ID Guarantor Name 08/25/[address] [facility] (MEDICAID HMO) [id number] Yuni Meija [id number] Yuni Mejia Notes Date Note Type Note Provider Name and Address Organization Details Recorded Time 08/25/2025 text/html Generic HPI TemplateReported by Patient Anju Mcnamara CNM [address], [place], [address], [facility] 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 Status 03/02/20 25 1 B Positive 164 OPEN Fetus Data First Name Last Name Admitted to NICU Weight (g) Sex Living Outcome Pediatric Complications Fetus ID Race Codes Race Delivery Type 47000 Problems Problem Notes SDH form completed 5GI consult Tachycardia Holter monitor 72 order- pt sent back on 03-27-25 Cardiology referral faxed per Dr Martínez office calling pt 04/21 to schedule consult scheduled 05/11 11:15AM Problem Name Start Date End Date Resolution Snomed Code Not e Uncomplicated moderate persistent asthma 03/02/2025 650356713 albuterol prn Abnormal placenta affecting management of mother 05/04/2025 51782049 MCI serial grow th us Iron deficiency anemia 05[facility]25[facility]1569 [facility] [place] 200mg x1 HGB 10.6 Nausea and vomiting 03/02/2025 18179654 Anxiety 03/02/2025 54825671 sertralin e started 03/02/25 changed to prozac 10 on Gestational diabetes mellitus 07/08/2025 83973620 checking bs QID - ruled in GDM Referral faxed to [facility] 07/07 Frequent headache 05/03/2025 [id number] [place] to [facility] 05/21, discharge 05/23 [facility] referral faxed 05/24 [facility] Neurology consult pending per KAJAL Pittman [facility]- Neuro [facility] unable to see pt due to insurance 05/[facility] 07/05/25 Level US & Consult (see [facility] consult zayas recommendations ) regimen prn Imitrex 50mg for acute migraine, vitamin B2 (Riboflavin) 400mg, Coenzyme q10 300mg and magnesium oxide 200 to 600mg daily. minimize use of Excedrin or Tylenol to no more than 2-3 times a week. 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/2025 9813385 32wk growth us Jun Calculation Initial Jun [...] Weight in lbs Pre/Post Dialysis Refused Weight 158.945336861249 BP Diastolic BP Location Tested BP Systolic [...] Weight in lbs Pre/Post Dialysis Refused Weight 158.644654699943 BP Diastolic BP Location Tested BP Systolic [...] Weight in lbs Pre/Post Dialysis Refused Weight 162.694518414127 BP Diastolic BP Location Tested BP Systolic BP Type 78 123 Fetus Heart Rate Present A 148 Fetus Movement A Yes Comments Patient is having having ronny n, cramping and vaginal discharge. went to ed exam done cultures and rx sent, ?FM, await telemetry monitor results rfilled zofran, precautions and education [...] Type Weight in lbs Pre/Post Dialysis Refused 168.392753449884 BP Diastolic BP Location Tested BP Systolic [...] Type Weight in lbs Pre/Post Dialysis Refused 169.486194953726 BP Diastolic BP Location Tested BP Systolic [...] Weight in lbs Pre/Post Dialysis Refused Weight 175.520764976727 BP Diastolic BP Location Tested BP Systolic [...] Weight in lbs Pre/Post Dialysis Refused Weight 182.452758061582 BP Diastolic BP Location Tested BP Systolic [...] Weight in lbs Pre/Post Dialysis Refused Weight 181.472476268638 BP Diastolic BP Location Tested BP Systolic BP Type 73 L arm 131 sitting Fetus Heart Rate Present Fetus Movement A Yes Comments viral URI testied neg at urg ent care, nausea resolved, efw 68%, +FM plan education and precautions f/u 2 weeks diagnosed GDM, 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, gave list reviewed protein vs carb Flowsheet Date 07/21/2025 Gibson Score Blood Edema Fundus Height Fundus Units Glucose Ketones Leukocytes Nitrite Labor Signs Protein Cervic Dilation Cervic Effacement Cervic Station Type Weight in lbs Pre/Post Dialysis Refused Weight 181.821464392523 BP Diastolic BP Location Tested BP Systolic BP Type 78 L arm 127 sitting Fetus Heart Rate Present A 150 Fetus Movement A Yes Comments rpt urine culture +FM review ed blood sugars, meets with geotechnical engineering technician today, precautions and education f/u 2 weeks [...] Weight in lbs Pre/Post Dialysis Refused Weight 181.131273799178 BP Diastolic BP Location Tested BP Systolic [...] Weight in lbs Pre/Post Dialysis Refused Weight 183.410276446909 BP Diastolic BP Location Tested BP Systolic [...] Type Weight in lbs Pre/Post Dialysis Refused 184.454782433586 BP Diastolic BP Location Tested BP Systolic [...] Type Weight in lbs Pre/Post Dialysis Refused 184.719369371058 BP Diastolic BP Location Tested BP Systolic [...] Type Weight in lbs Pre/Post Dialysis Refused 184.670724770092 BP Diastolic BP Location Tested BP Systolic [...] Weight in lbs Pre/Post Dialysis Refused Weight 184.709123115039 BP Diastolic BP Location Tested BP Systolic [...]
--- OUTSIDE RECORDS SUMMARY | 2025-09-14 00:24 | XMS_ITS | Continuity of Care Document ---
Author Organization [facility], [facility] Address [address] [place] [address] [place] [address] Care Team Providers Care Title Assistant Name Role Phone VIVIAN ESTRADAISSA Primary Care Provider Assessment Encounter Date Assessment Date Assessment LastModified by Organization Details LastModified Time 07/07/2025 07/07/2025 Patient is _30__weeks . Discussed plan. Not available 07/07/2025 11:34:49 Plan of Treatment Reminders Order Date Submit Date Provider Last Modified By Organization Details Last Modified Time Details Appointments None recorded. Lab None recorded. Referral None recorded. Procedures None recorded. Surgeries None recorded. Imaging None recorded. Medication Orders ondansetron 4 mg disintegrat ing tablet 2024 025 [facility], [address] [place], [address], 15:10:31 Patient TargetsNo targets recorded. Patient InstructionsNo instructions recorded. Reason for Referral None Reported. Results Created Date Observation Date Name Description Value Unit Range Abnormal Flag Note LastModifiedBy Organization Detail LastModifiedTime 03/06/2003/06/2025 [UNIT Y] ANEUP LOIDY NIPT fraction 5.7% normal Not Available Medina Mcbride[address], [place], [address], 03/06/2025 03:58:26 03/06/20 25 03/06/2025 [UNIT Y] ANEUP LOIDY NIPT sex chromosome aneuploidy NOT DETECT ED normal Not Available [facility] [address], [place], [address], 03/06/2025 03:58:26 03/06/20 25 03/06/2025 [UNIT Y] ANEUP LOIDY NIPT monosomy X LOW RISK <1 in 10,000 normal Not Available [facility] [address], [place], [address], 03/06/2025 03:58:26 03/06/20 25 03/06/2025 [UNIT Y] ANEUP LOIDY NIPT trisomy 13 LOW RISK <1 in 10,000 normal Not Available [facility] [address], [place], [address], 03/06/2025 03:58:26 03/06/20 25 03/06/2025 [UNIT Y] ANEUP LOIDY NIPT trisomy 18 LOW RISK <1 in 10,000 normal Not Available [facility] [address], [place], [address], 03/06/2025 03:58:26 03/06/20 25 03/06/2025 [UNIT Y] ANEUP LOIDY NIPT trisomy 21 LOW RISK <1 in 10,000 normal Not Available [facility] [address], [place], [address], 03/06/2025 03:58:26 03/06/20 25 03/06/2025 [UNIT Y] ANEUP LOIDY NIPT sex FEMALE normal Not Available [facility] [address], [place], [address], 03/06/2025 03:58:26 03/06/20 25 03/06/2025 [UNIT Y] ANEUP LOIDY NIPT gestation SINGLE TON normal Not Available [facility] [address], [place], [address], 03/06/2025 03:58:26 03/06/20 25 03/06/2025 [UNIT Y] ANEUP KIANA NIPT for detailed report, see pdf See PDF normal Not Available [facility] [address], [place], [address], 03/06/2025 03:58:26 03/02/20 25 03/02/2025 CULTU RE: URINE result report SEE RESULT S BELOW Test: Cultu re: Urine Speci men Sourc e: Urine - Clean Catch Speci men Type: Urine Speci men Date: 1455 Resul t Date: 2138 Resul t Statu s: Final resul t Abnor mal: No Resul ting Lab: [facility] [address] [facility] [address] Tel: CULTU RE ----- ----- ----- --- No growt h in 1 day (dete ction level of 10,00 0 colon ies / ml.) Not Available [facility] (Lab) [address] [facility], [place], [address], 03/03/2025 22:42:27 03/12/2003/12/2025 CULTU RE: URINE result report SEE RESULT S BELOW Test: Cultu re: Urine Speci men Sourc e: Urine - Clean Catch Speci men Type: Urine Speci men Date: 2024 1600 Resul t Date: 2024 0610 Resul t Statu s: Final resul t Abnor mal: No Resul ting Lab: [facility] [address] [facility] [address] Tel: CULTU RE ----- ----- ----- --- No growt h in 1 day (dete ction level of 10,00 0 colon ies / ml.) Not Available [facility] (Lab) [address] [facility], [place], [address], 03/14/2025 07:15:03 03/12/20 25 03/12/2025 urina lysis , dipst ick Leukocytes ++ Not Available [address], [place], [address], 03/12/2025 16:45:06 03/12/20 25 03/12/2025 urina lysis , dipst ick Protein + Not Available [place] [address], [place], [address], 03/12/2025 16:45:06 03/12/20 25 03/12/2025 urina lysis , dipst ick pH 5 Not Available [place] [address], [place], [address], 03/12/2025 16:45:06 03/12/20 25 03/12/2025 urina lysis , dipst ick Blood trace Not Available [place] [address], [place], [address], 03/12/2025 16:45:06 03/12/20 25 03/12/2025 urina lysis , dipst ick Specific [place] 1.015 Not Available [facility] [address], [place], [address], 03/12/2025 16:45:06 03/12/20 25 03/12/2025 urina lysis , dipst ick Ketone +++ Not Available [place] [address], [place], [address], 03/12/2025 16:45:06 03/31/20 25 03/31/2025 TSH, REFLE X FREE T4 TSH 0.42 uIU/m L 0.30-[address] [facility] (Lab) [address], [place], [address], 04/01/2025 03:05:12 03/31/20 25 03/31/2025 CULTU RE: URINE result report SEE RESULT S BELOW Test: Cultu re: Urine Speci men Sourc e: Urine Voide d Speci men Type: Urine Speci men Date: 1710 Resul t Date: 2256 Resul t Statu s: Final resul t Abnor mal: No Resul ting Lab: [facility] [address] [facility] [address] Tel: CULTU RE ----- ----- ----- --- Cultu re resul t (>=3 organ isms prese nt) indic ates possi ble conta minat ion. Repea t cultu re if sympt oms indic ate. Not Available [facility] (Lab) [address], [place], [address], 04/01/2025 23:59:19 03/31/20 25 03/31/2025 urina lysis , dipst ick Leukocytes +1 Not Available [facility] domingo [address], [place], [address], 03/31/2025 09:23:13 03/31/20 25 03/31/2025 urina lysis , dipst ick Nitrite normal Not Available [place] [address], [place], [address], 03/31/2025 09:23:13 03/31/20 25 03/31/2025 urina lysis , dipst ick Urobilinogen normal Not Available [facility] david [address], [place], [address], 03/31/2025 09:23:13 03/31/20 25 03/31/2025 urina lysis , dipst ick Protein trace Not Available [place] [address], [place], [address], 03/31/2025 09:23:13 03/31/20 25 03/31/2025 urina lysis , dipst ick pH 5 Not Available [place] [address], [place], [address], 03/31/2025 09:23:13 03/31/20 25 03/31/2025 urina lysis , dipst ick Specific [place] 1.020 Not Available [facility] nita [address], [place], [address], 03/31/2025 09:23:13 03/31/20 25 03/31/2025 urina lysis , dipst ick Ketone normal Not Available [place] [address], [place], [address], 03/31/2025 09:23:13 03/31/20 25 03/31/2025 urina lysis , dipst ick Bilirubin normal Not Available [facility] anna [address], [place], [address], 03/31/2025 09:23:13 03/31/20 25 03/31/2025 urina lysis , dipst ick Glucose normal Not Available [place] [address], [place], [address], 03/31/2025 09:23:13 03/31/20 25 03/31/2025 urina lysis , dipst ick Appearance normal Not Available [facility] [address], [place], [address], 03/31/2025 09:23:13 03/31/20 25 03/31/2025 urina lysis , dipst ick Color normal Not Available [place] [address], [place], [address], 03/31/2025 09:23:13 04/01/20 25 04/01/2025 WOMEN 'S HEALT H SWAB PLUS, DENIS bacterial vaginosis (bv), tma Negati ve negati ve Not Available [facility] (Lab) [address], [place], [address], 04/02/2025 14:08:45 04/01/20 04/01/2025 [facility], DENIS mekhi species, tma Negati ve negati ve Not Available [facility] (Lab) [address] [place], [address], 04/02/2025 14:08:45 04/01/20 25 04/01/2025 [facility], DENIS mekhi glabrata, tma Negati ve negati ve Not Available [facility] (Lab) [address] [place], [address], 04/02/2025 14:08:45 04/01/20 25 04/01/2025 [facility], DENIS trichomonas vaginalis, tma Negati ve negati ve Not Available [facility] (Lab) [address] [place], [address], 04/02/2025 14:08:45 04/01/20 25 04/01/2025 [facility] SW[facility], DENIS chlamydia trachomatis, PCR Negati ve negati ve Not Available [facility] (Lab) [address] [place], [address], 04/02/2025 14:08:45 04/01/20 25 04/01/2025 [facility], DENIS neisseria gonorrhoeae, PCR [...] in this panel . Not Available [facility] (Lab) [address] , [place], [address], 04/02/2025 14:08:45 04/22/2004/22/2025 CULTU RE: URINE result report SEE RESULT S BELOW Test: Cultu re: Urine Speci men Sourc e: Urine Voide d Speci men Type: Urine Speci men Date: 2024 1314 Resul t Date: 2024 0322 Resul t Statu s: Final resul t Abnor mal: No Resul ting Lab: [facility] [address] [facility] [address] Tel: CULTU RE ----- ----- ----- --- No growt h in 1 day (dete ction level of 10,00 0 colon ies / ml.) Not Available [facility] (Lab) [address] , [place], [address], 04/24/2025 04:28:01 04/22/2004/22/2025 urina lysis , dipst ick Leukocytes + Not Available [facility] [address], [place], [address], 04/22/2025 10:01:51 04/22/2004/22/2025 urina lysis , dipst ick Protein + Not Available [place] [address], [place], [address], 04/22/2025 10:01:51 04/22/20 25 04/22/2025 urina lysis , dipst ick pH 8 Not Available [place] [address], [place], [address], 04/22/2025 10:01:51 04/22/20 25 04/22/2025 urina lysis , dipst ick Blood + Not Available [place] [address], [place], [address], 04/22/2025 10:01:51 04/22/20 25 04/22/2025 urina lysis , dipst ick Specific [place] 1.010 Not Available [facility] [address], [place], [address], 04/22/2025 10:01:51 04/22/20 25 04/22/2025 urina lysis , dipst ick Ketone + Not Available [place] [address], [place], [address], 04/22/2025 10:01:51 06/23/20 25 06/23/2025 HEMAT OCRIT (HCT) HCT 35.6 % (based on docume nted legal sex) 34.0-[address] [facility] (Lab) [address] [facility], [place], [address], 06/24/2025 11:45:32 06/23/20 25 06/23/2025 HEMOG LOBIN (HGB) HGB 11.1 g/dL (based on docume nted legal sex) 11.6-1 [address] [facility] (Lab) [address] [facility], [place], [address], 06/24/2025 11:45:32 06/23/20 25 06/23/2025 GTT - GESTA ROLAND L SCREE N, ACOG OB glucose, 1 hour screen 180 mg/dL 70-135 high Not Available [facility] (Lab) [address] [place], [address], 06/24/2025 11:45:33 06/23/20 25 06/23/2025 HIV 1/2 ANTIG EN/AN TIBOD Y, REFLE X CONFI RMATI ON HIV antigen/anti body Nonrea ctive nonrea ctive HIV-1 antig en and HIV-1 /HIV- 2 antib odies were not detec greg. No labor atory evide nce of HIV infec tion. Not Available [facility] (Lab) [address] [facility], [place], [address], 06/24/2025 11:45:33 06/23/20 25 06/23/2025 RPR SCREE N, REFLE X TITER /CONF IRMAT ION RPR qualitative Nonrea ctive nonrea ctive Not Available [facility] (Lab) [address] [facility], [place], [address], 06/24/2025 11:45:34 03/02/20 25 03/02/2025 US, obste tric, nucha l trans lucen cy No observ ation record ed. [email or web address] [place] [address], [place], [address], 03/02/2025 13:35:30 03/02/20 25 03/02/2025 US, obste tric, nucha l trans lucen cy No observ ation record ed. [email or web address] [address], [place], [address], 03/03/2025 14:08:39 03/08/20 25 03/08/2025 US, obste tric, 1st trime ster No observ ation record ed. [email or web address] [place] [address], [place], [address], 03/08/2025 12:22:22 03/08/20 25 03/08/2025 US, obste tric, 1st trime ster No observ ation record ed. [email or web address] [address], [place], [address], 03/10/2025 15:03:13 04/01/20 25 03/24/2025 qamar r monit or No observ ation record ed. [address] [facility] [address], [place], [address], 04/08/2025 12:36:45 04/01/20 25 03/22/2025 qamar r monit or No observ ation record ed. [address] (Pulmonary) [address] [facility] [address], [place], [address], 04/06/2025 08:59:34 04/20/20 25 04/20/2025 US, obste tric, limit ed No observ ation record ed. [email or web address] [place] [address], [place], [address], 04/20/2025 17:39:30 04/20/20 25 04/20/2025 US, obste tric, follo w-up No observ ation record ed. [email or web address] [address], [place], [address], 04/23/2025 08:32:54 04/28/20 25 04/28/2025 US, obste tric, 2nd or 3rd trime ster No observ ation record ed. [email or web address] [place] [address], [place], [address], 04/28/2025 17:48:42 04/28/20 25 04/28/2025 US, obste tric, 2nd or 3rd trime ster No observ ation record ed. [email or web address] [address], [place], [address], 05/04/2025 22:16:11 05/07/20 25 05/07/2025 non-s tress test No observ ation record ed. [address] [facility] [address], [place], [address], 05/28/2025 13:33:54 05/21/20 25 05/21/2025 CT, head + brain , w/o contr ast No observ ation record ed. [email or web address] [facility] [address], [place], [address], 05/24/2025 13:48:57 05/28/20 25 05/28/2025 US, obste tric, follo w-up No observ ation record ed. [facility] [address], [place], [address], 05/28/2025 17:32:34 05/28/20 25 05/28/2025 US, obste tric, follo w-up No observ ation record ed. [email or web address] [address], [place], [address], 06/01/2025 15:13:13 06/08/20 25 06/07/2025 US, obste tric, follo w-up No observ ation record ed. [email or web address] [facility] [address] [facility], [place], [address], 06/15/2025 10:53:46 07/07/20 25 07/07/2025 US, obste tric, follo w-up No observ ation record ed. [email or web address] [place] [address], [place], [address], 07/07/2025 13:18:01 07/07/20 25 07/07/2025 US, obste tric, follo w-up No observ ation record ed. [email or web address] [address], [place], [address], 07/07/2025 11:29:37 08/04/20 25 08/04/2025 US, obste tric, follo w-up No observ ation record ed. [email or web address] [place] [address], [place], [address], 08/04/2025 15:08:50 08/04/2008/04/2025 US, obste tric, follo w-up No observ ation record ed. [address], [place], [address], 08/06/2025 10:41:50 08/11/2008/11/2025 non-s tress test No observ ation record ed. [email or web address] [place] [address], [place], [address], 08/11/2025 17:37:52 08/11/20 non-s tress test No observ ation record ed. [email or web address] [place] [address], [place], [address], 08/11/2025 17:38:11 08/15/2008/15/2025 non-s tress test No observ ation record ed. [address], [place], [address], 08/21/2025 10:18:57 08/15/2008/15/2025 US, obste tric, bioph ysica l profi le No observ ation record ed. [address] [facility], [place], [address], 08/17/2025 10:50:53 08/18/2008/18/2025 US, obste tric, bioph ysica l profi le + non-s tress test No observ ation record ed. [email or web address] [place] [address], [place], [address], 08/18/2025 10:21:39 08/18/20 25 08/18/2025 US, obste tric, bioph ysica l profi le + non-s tress test No observ ation record ed. [email or web address] [address], [place], [address], 08/18/2025 10:35:44 08/18/20 25 08/18/2025 non-s tress test No observ ation record ed. [address], [place], [address], 08/18/2025 17:34:03 08/18/20 non-s tress test No observ ation record ed. [address], [place], [address], 08/18/2025 16:06:09 08/25/2008/25/2025 US, obste tric, bioph ysica l profi le + non-s tress test No observ ation record ed. [email or web address] [place] [address], [place], [address], 08/25/2025 18:52:06 08/25/2008/25/2025 US, obste tric, follo w-up No observ ation record ed. joelle Balbuena [address], [place], [address], 08/25/2025 15:47:28 08/25/2008/25/2025 non-s tress test No observ ation record ed. [address], [place], [address], 08/25/2025 18:12:15 08/25/20 non-s tress test No observ ation record ed. [address], [place], [address], 08/25/2025 17:21:19 08/30/20 25 08/30/2025 imagi ng/di agnos tic resul t No observ ation record ed. [address], [place], [address], 08/31/2025 18:17:32 09/01/20 25 09/01/2025 non-s tress test No observ ation record ed. [address], [place], [address], 09/13/2025 11:32:22 09/01/20 25 09/01/2025 US, obste tric No observ ation record ed. [address], [place], [address], 09/02/2025 15:56:01 09/01/2009/01/2025 non-s tress test No observ ation record ed. [address], [place], [address], 09/02/2025 14:32:38 Result Notes None recorded. Problems Name Problem SNOMED Code Status Onset Date Resolution Date Notes Provider Name and Address Organization Details Recorded Time Hypereme sis 526023686 Completed phenerga n now prn [facility]rias [facility] 2 16:43:51 Anxiety in pregnanc y 6198617509 9109 Completed will continue to monitor [facility] 2 16:43:51 Past pregnanc y history of gestatio nal diabetes mellitus 472336904 Completed Early 1 hr GTT @ 20wks 11/03 APPT [facility] 2 16:43:51 Spinal muscular atrophy 8033154 Completed Carrier - Not in contact with FOB. [facility] 2 16:43:51 Anxiety 70437404 Completed prozac Karina Burroughs [facility], [facility] 4 11:00:46 Nausea 873110397 Completed d/c zofran pump 11/08 per pt request Karina ramos [facility] 4 11:00:46 Postpart um hemorrha ge 76322336 Completed 2017 with d&c Karina ramos [facility] 4 11:00:46 Normal pregnanc y in multigra jessy 7189811628 76463 Completed 201907/05/2021 Encounte r for supervis ion of other normal pregnanc y, 3rd trimeste r;Record ed Elsewher e: No Locat ion: [facility] S ource: EHR Brand Advisor yvrose: N Practi ce ID: [id number] Gigi lable Time: 10:45:00 AM Karina ramos [facility] 10:15:27 Gestatio n period, 37 weeks 93402209 Completed 201907/05/2021 37 weeks gestatio n of pregnanc y;Record ed Elsewher e: No Locat ion: [facility] S ource: EHR Brand Advisor yvrose: N Practi ce ID: [id number] Gigi lable Time: 09:00:00 AM Karina ramos [facility] 10:15:[address] Concept Completed 201907/05/2021 Matern care for abnlt fetl hrt rate or rhym, 3rd tri, unsp;Rec orded Elsewher e: No Locat ion: [facility] S ource: EHR Brand Advisor yvrose: N Practi ce ID: [id number] Gigi lable Time: 08:45:00 AM Karina ramos [facility] 10:15:29 Gestatio nal diabetes mellitus 99979566 Completed 201907/05/2021 Gestatio nal diabetes mellitus in pregnanc y, diet controll ed;Recor ded Elsewher e: No [facility]ce: EHR Brand Advisor yvrose: N Practi ce ID: [id number] Gigi lable Time: 11:45:00 AM Karina Burroughs null, [facility] 10:15:25 Gestatio n period, 38 weeks 61677520 Completed 201907/05/2021 38 weeks gestatio n of pregnanc y;Record ed Elsewher e: No [facility] S ource: EHR Brand Advisor yvrose: N Practi ce ID: [id number] Gigi lable Time: 11:30:00 AM Karina Burroughs null, [facility] 10:15:13 Amenorrh ea 10226825 Completed 202007/10/2021 Tammi Jones null, [facility] 13:08:35 Pregnanc y 53895622 Completed 202003/29/2022 Karina Burroughs null, [facility] 4 11:00:49 Pregnanc y 59334417 Completed 202304/22/2024 Karina Burroughs null, [facility] 4 11:00:49 Headache 66143979 Active 2023 Karina Burroughs null, [facility] 5 16:19:28 Pregnanc y 21876494 Active 2023 Karina Burroughs null, [facility] 5 16:19:28 Uncompli cated moderate persiste nt asthma 113895539 Active 2024 albutero l prn Shawn Bradley MD [address], [place], [address], [facility] 5 13:08:36 Anxiety 86914256 Active 2024 sertrali ne started 03/02/25 changed to prozac 10 on Shawn Bradley MD [address], [place], [address], [facility] 5 17:05:48 Nausea and vomiting 39381872 Active 2024 Shawn Bradley MD [address], [place], [address], [facility] 5 13:20:27 Placenta circumva llata 3752800 Active 2024 32wk [facility] 09:44:35 Frequent headache 147405904 Active 2024 transpor t to [facility] 05/21, discharg e 05/23 MFM referral faxed 05/24 SS Neurolog y consult pending per KAJAL Pittman [facility]- Neuro [facility] unable to see [...] than 2-3 times a week. Ryann ramos [facility] 5 10:55:26 Abnormal placenta affectin g manageme nt of mother 65857524 Active 2024 MCI serial growth Ryann ramos [facility] 5 10:46:25 Iron deficien cy anemia 41290051 Active 2024 SS MFM tx venofer 200mg x1 HGB 10.6 Ryann ramos [facility] 5 15:21:25 Gestatio nal diabetes mellitus 89694349 Active 2024 checking bs QID - ruled in GDM Referral faxed to [facility] 07/07 Ryann Green [facility] 14:36:52 Notes:Order faxed to [facility] 08/10 for PICC line, and home health already caring for ptHilda Gilbert RN at [phone] Problem Notes None recorded. Procedures Surgical History Date Name Laterality Status Provider Name and Address Organization Details Recorded Time 025 SALPINGECTOMY, LAPAROSCOPIC (SURG) completed Not Available [facility] 09/06/2025 11:19:17 025 Date of Last Pap Smear completed Karina Burorughs [facility] 01/28/2025 11:19:42 024 Nexplanon Removal completed Shawn Bradley MD [address], [place], [address], [facility] 08/05/2024 15:09:58 024 Control Implant Insertion completed Anju Mcnamara CNM [address], [place], [address], [facility] 05/08/2024 17:59:34 024 cholecystectomy [...] Name and Address Organization Details Recorded Time 15188 terbutali ne medicatio n anaphylax is Not available Not available 01/27/20252021 24566 [facility] 16:19:27 12507 amoxicill in medicatio n Not available Not available Not available 09/10/2025 723 RxNorm Not Available gene - External Data Service - prod 16:39:37 60995 terbinafi ne medicatio n anaphylax is Not available high 09/10/20252024 96324 RxNorm Not Available [facility] [facility] - External Data Service - prod 16:40:54 [...] Prescrib ed Elsewher e: Yes [facility] By: prabhjot Lee r DateTime [...] n (supplie d by office) insert lot [id number] Exp 01/2026 Not Available Not Available Not Available 28 mg iron-800 mcg tablet 07/05 completed Prescrib ed Elsewher e: Yes [facility] By: prabhjot Lee r DateTime : 01/14/20 10:45:00 AM Not Available Not Available Not Available lidocaine 5 % topical ointment APPLY OINTMENT EXTERNAL LY TO RIBS THREE TIMES DAILY NEEDED 01/14 completed Not Available Not Available Not Available PLATE COLORER-PNV-DH A 28 mg iron-1 mg-200 mg capsule [...] Updated DateTime 07/07/2025 162.56 cm 31.1 kg/m2 56400.2 2 g 98.2 [degF] 131/73 mm[Hg] Toya Perkins [facility] 11:02:12 Social History Question Answer Notes LastModified by Organizat ion Details LastModified Time Tobacco Smoking Status Former Smoker Karina ramos, [facility] 07/05/2021 09:06:21 If You Are , What Was Your Level Of Alcohol Consumption Prior To ? Occasional [email or web address] Information not available 03/31/2025 Are You Blind Or Do You Have Difficulty Seeing? No [email or web address] Information not available 07/05/2021 What Is Your Level Of Caffeine Consumption? Heavy Information not available 07/05/2021 In The 14 Days Before Symptom Onset, Have You Had Close Contact With A Laboratory-[facility] While That Case Was Ill? No [email or web address] Information not available 07/05/2021 In The 14 Days Before Symptom Onset, Have You Had Close Contact With A Person Who Is Under Investigation For COVID-19 While That Person Was Ill? No Information not available 07/05/2021 Have You Been To An Area Known To Be High Risk For COVID-19? No [email or web address] Information not available 07/05/2021 Are You Deaf Or Do You Have Serious Difficulty Hearing? No [email or web address] Information not available 07/05/2021 What Type Of Diet Are You Following? REGULAR [email or web address] Information not available 07/05/2021 Which Illicit Or Recreational Drugs Have You Used? Marijuana Information not available 07/05/2021 Have You Ever Been Counseled For Unhealthy Alcohol Use? No [email or web address] Information not available 07/05/2021 Do You Use Your Seat Belt Or Car Seat Routinely? Yes [email or web address] Information not available 07/05/2021 Do You Have Smoke And Carbon Monoxide Detectors In Your Home? Yes [email or web address] Information not available 07/05/2021 Do You Use Sunscreen Routinely? Yes [email or web address] Information not available 07/05/2021 Has Tobacco Cessation Counseling Been Provided? No [email or web address] Information not available 07/05/2021 Have You Used IV Drugs? No [email or web address] Information not available 07/05/2021 Do You Have Difficulty Walking Or Climbing Stairs? No [email or web address] Information not available 12/06/2021 Sex: Unknown Functional Status Question Answer Note LastModified by Organizat ion Details LastModified Time Do you use any illicit or recreational drugs? Yes [email or web address] Information not available 07/05/2021 Do you or have you ever used any other forms of tobacco or nicotine? Yes Information not available 07/05/2021 What is your level of alcohol consumption? None [email or web address] Information not available 03/31/2025 Do you or have you ever used smokeless tobacco? Never used smokeless tobacco [email or web address] Information not available 07/05/2021 Are you able to walk independently without assistance or assistive devices? YESWOREST [email or web address] Information not available 07/05/2021 Are you able to care for yourself independently? Yes Information not available 12/06/2021 Do you have difficulty dressing, bathing, grooming, or toileting? No [email or web address] Information not available 12/06/2021 Do you or have you ever used e-cigarettes or vape? Current user of electronic cigarettes [email or web address] Information not available 07/05/2021 What is your exercise level? Occasional [email or web address] Information not available 07/05/2021 Mental Status Question Answer Note LastModified by Organization D etails LastModified Time Do you feel stressed (tense, restless, nervous, or anxious, or unable to sleep at night)? [id number] [email or web address] Information not available 07/05/2021 Family History Relationship Description Onset Age of this Age Resolved Age Notes LastModified by Organization Details LastModified Time Father No current problems or disability [email or web address] Not available 05/2021 09:06:31 Mother No current problems or disability [email or web address] Not available 05/2021 09:06:31 Medical History Condition [...] ICD10 Code Diagnosis IMO Codes Diagnosis Note [id number] Shawn Bradley MD [place] [address] 06/23/2025 13:43:13 06/25/2025 17:52:18 [id number] 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 Z3A.30 4245160 [id number] Anju Mcnamara [place] [address],[place] [address] 07/07/2025 10:14:33 07/07/2025 11:38:54 Gestation period, 30 weeks 02214523 Z3A.30 8055536 cont pnv Nausea 093014443 R11.0 50739 Gestationa l diabetes mellitus 32244674 O24.419 51255507 Health Concerns Section Related Observation LastModified by Organization Detai ls LastModified Time None Recorded Concern Status LastModified by Organization Details LastModified Time None Recorded Payers Encounter Date Sequence Insurance Name Policy Number Policy Roberts Covered Member ID Roberts Member ID Guarantor Name 07/07/2025 1 [facility] (MEDICAID HMO) [id number] Yuni Mejia [id number] Yuni Mejia Notes Date Note Type Note Provider Name and Address Organization Details Recorded Time 07/07/2025 text/html Generic HPI TemplateReported by Patient Anju Prescott KRISTEN Mcnamara [address], [place], [address], [place] [facility] 07/07/2025 11:37:13 OBGyn Episode Ob Episode Information Episode Created Date Number of Fetuses Patient Bloodtype Patient rh Status Prepregnancy Weight lbs Domestic Partner Domestic Partner Phone Father Name Contamination Consultant Status 03/02/20 25 1 B Positive 164 OPEN Fetus Data First Name Last Name Admitted to NICU Weight (g) Sex Living Outcome Pediatric Complications Fetus ID Race Codes Race Delivery Type [id number] Problems Problem Notes SDH form completed 5GI consult Tachycardia Holter monitor 72 order- pt sent back on 03-27-25 Cardiology referral faxed per Dr Martínez office calling pt 04/21 to schedule consult scheduled 05/11 11:15AM Problem Name Start Date End Date Resolution Snomed Code Not e Uncomplicated moderate persistent asthma 03/02/2025 567050691 albuterol prn Abnormal placenta affecting management of mother 05/04/2025 06036895 [facility] serial grow th Iron deficiency anemia 05/25/2025 24080359 [facility] tx [place] 200mg x1 HGB 10.6 Nausea and vomiting 03/02/2025 46267003 Anxiety 03/02/2025 79527959 sertralin e started 03/02/25 changed to prozac 10 on Gestational diabetes mellitus 07/08/2025 73864039 checking bs QID - ruled in GDM Referral faxed to [facility] 07/07 Frequent headache 05/03/2025 [id number] [place] to [facility] 05/21, discharge 05/23 [facility] referral faxed 05/24 [facility] Neurology consult pending per KAJAL Pittman [facility] unable to see pt due to insurance 05/25[facility] 07/05/25 Level US & Consult (see [facility] consult zayas recommendations ) regimen prn Imitrex 50mg for acute migraine, vitamin B2 (Riboflavin) 400mg, Coenzyme q10 300mg and magnesium oxide 200 to 600mg daily. minimize use of Excedrin or Tylenol to no more than 2-3 times a week. 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 went to ed exam done cultures and rx sent, ?FM, await cardiac cath tech results rfilled zofran, precautions and education f/u [...] Type Weight in lbs Pre/Post Dialysis Refused 168.565698127004 BP Diastolic BP Location Tested BP Systolic [...] Type Weight in lbs Pre/Post Dialysis Refused 169.739592663356 BP Diastolic BP Location Tested BP Systolic [...] Weight in lbs Pre/Post Dialysis Refused Weight 175.104897725566 BP Diastolic BP Location Tested BP Systolic [...] Weight in lbs Pre/Post Dialysis Refused Weight 182.077444667570 BP Diastolic BP Location Tested BP Systolic [...] Weight in lbs Pre/Post Dialysis Refused Weight 181.499205809595 BP Diastolic BP Location Tested BP Systolic BP Type 73 L arm 131 sitting Fetus Heart Rate Present Fetus Movement A Yes Comments viral URI testied neg at urg ent care, nausea resolved, efw 68%, +FM plan education and precautions f/u 2 weeks diagnosed GDM, plan medication administration professional, gave list reviewed protein vs carb Flowsheet Date 07/21/2025 Gibson Score Blood Edema Fundus Height Fundus Units Glucose Ketones Leukocytes Nitrite Labor Signs Protein Cervic Dilation Cervic Effacement Cervic Station Type Weight in lbs Pre/Post Dialysis Refused Weight 181.754409604185 BP Diastolic BP Location Tested BP Systolic BP Type 78 L arm 127 sitting Fetus Heart Rate Present A 150 Fetus Movement A Yes Comments rpt urine culture +FM review ed blood sugars, meets with medication administration professional today, precautions and education f/u 2 weeks [...] Weight in lbs Pre/Post Dialysis Refused Weight 181.603519982195 BP Diastolic BP Location Tested BP Systolic [...] Weight in lbs Pre/Post Dialysis Refused Weight 183.873336063911 BP Diastolic BP Location Tested BP Systolic [...] Type Weight in lbs Pre/Post Dialysis Refused 184.023799391620 BP Diastolic BP Location Tested BP Systolic [...] Type Weight in lbs Pre/Post Dialysis Refused 184.591939712408 BP Diastolic BP Location Tested BP Systolic [...] Type Weight in lbs Pre/Post Dialysis Refused 184.765755056522 BP Diastolic BP Location Tested BP Systolic [...] Weight in lbs Pre/Post Dialysis Refused Weight 184.788517554028 BP Diastolic BP Location Tested BP Systolic [...]
== END 2025-09-13 16:50 | disposition home or self-care (01) ==
LOC: ANHOBOP 14:45 → ANHOBPP 14:45
PROVIDERS: Visit Provider Obstetrics & Gynecology
DX: O13.9 Gestational [pregnancy-induced] hypertension without significant proteinuria, unspecified trimester (principal); Z3A.00 Weeks of gestation of pregnancy not specified
CPT/HCPCS: 36415; 80053; 84550; 85025; 85055; 99199; A9270

== ENCOUNTER 2025-09-16 14:51 | Observation (INO) | payer OTHER, SELFPAY ==
[2025-09-16] VITALS (11 sets, daily range): BP systolic 125–155; BP diastolic 74–103; PULSE 45–75; TEMP 36.9; BMI 27.3
--- NOTE | ~2025-09-16 | CT_ITS ---
EXAMINATION: CTA BRAIN/CAROTID DATE: 09/16/2025 16:53 INDICATION: headache TECHNIQUE: Computed tomographic angiography (CTA) of the head and neck was performed with 100 mL Omnipaque-350 intravenous contrast. Multiplanar reconstructions and maximum intensity projection 3D-reconstructions of the carotid arteries and of the intracranial arteries were created by the technologist on a separate workstation. Precontrast CT of the head was also obtained. Automated exposure control and iterative reconstruction technique were employed.The dose-length product was 1579.50 mGy-cm. COMPARISON: Head CT dated 05/21/2025 FINDINGS: Head: No acute intracranial hemorrhage, acute infarction or abnormal extra axial fluid collection. Ventricles are normal and symmetric. No mass/mass effect. No abnormally enhancing brain lesions on the post contrast imaging. The orbits, paranasal sinuses and mastoid air cells are normal. Intracranial arteries Vertebral arteries are codominant. There is no hemodynamically significant stenosis in the vertebral, basilar and internal carotid arteries. Both A1 and P1 segments are patent. There are also patent intercommunicating and diminutive bilateral posterior communicating arteries. There are no aneurysms identified. Cerebral arterial arborization appears symmetric. Carotid arteries: The aortic arch and the great vessels arising from the arch are normal in caliber with no dissection or hemodynamically significant stenosis. There is no evident plaque with 0% stenosis of the right and left carotid bulbs relative to normal distal artery lumen diameter (NASCET criteria). The visualized upper lungs are clear. Cervical soft tissues and the bones are unremarkable. IMPRESSION: 1. No evident plaque with 0% stenosis of the right and left carotid bulbs relative to normal distal artery lumen diameter (NASCET criteria). 2. Normal head CT and CT angiograms with no acute intracranial process, aneurysm, thrombosis or hematoma significant stenosis. Reviewed, dictated and finalized at location A. HEL KNITTING MACHINE OPERATOR IMPRESSION: 1. No evident plaque with 0% stenosis of the right and left carotid bulbs relat angel to normal distal artery lumen diameter (NASCET criteria). 2. Normal head CT and CT angiograms with no acute intracranial process, aneurys m, thrombosis or hematoma significant stenosis.
[2025-09-16 15:25] LABS: Hematocrit 40.6 % (37.0-47.0); Hemoglobin 12.6 g/dL (12.0-15.0); Immature Granulocyte Percent A 0.3 % (0-0.5); Lymphocytes Absolute Auto 2.21 K/mm3 (0.9-3.2); Mean Corpuscular HGB Conc 31.0 g/dl (32-36); Mean Corpuscular Hemoglobin 25.6 pg (26-34); Mean Corpuscular Volume 82.4 fl (80-100); Nucleated Red Blood Cells Absolute Auto 0.000 K/mm3 (0.0-0.012); Nucleated Red Blood Cells Perc 0.0 % (0.0-0.2); Platelet Count Result 364 k/mm3 (150-375); Red Blood Count 4.93 M/mm3 (4.2-5.4); White Blood Count 7.1 K/mm3 (4.5-10.0)
[2025-09-16 15:37] LABS: Alanine Aminotransferase 23 U/L (6-35); Albumin Level 4.2 g/dL (3.5-5.1); Alkaline Phosphatase 129 U/L (38-126); Anion Gap 8 mmol/L (4-12); Aspartate Amino Transferase 24 U/L (14-36); Bilirubin,Total 0.4 mg/dL (0.2-1.3); Blood Urea Nitrogen 19 mg/dL (7-17); Calcium 9.2 mg/dL (8.4-10.2); Carbon Dioxide 23 mmol/L (22-30); Chloride 107 mmol/L (98-107); Estimated Glomerular Filt Rate > 60; Glucose 87 mg/dL (65-110); Potassium 3.9 mmol/L (3.4-5.0); Sodium 138 mmol/L (137-145); Total Protein 7.9 g/dL (6.3-8.2); Uric Acid 4.6 mg/dL (2.5-7.5)
[2025-09-16] MEDS: CAFFEINE 200 MG TABLET PO (16:11)
--- NOTE | 2025-09-16 17:01 | PC.NURSE ---
Addendum entered by Pricila Zuniga RN 09/16/25 17:08: Dr. Mcginnis ordered a CT scan at this time as well as a hospitalist consult. Original Note: 9642-Called Dr. Mcginnis to report pt. symptoms including a headache she states has not gone away for several days and does not resolve with use of Motrin and Tylenol. Pt. states the headache starts at the base of her neck and spreads to her right faith and top of her head. Pt. rates the pain a 6/10. Reviewed lab results with MD at this time along with vital signs.
--- NOTE | 2025-09-16 17:08 | PC.NURSE ---
5400- Called Dr. Monteiro to give report on pt. reported pt persistent headache that is not relieved with medication. Reported lab results and vital signs. questions whether there should be a Neurology consult instead of hospitalist. MD requested RN to call Dr. Mcginnis to clarify the hospitalist consult.
--- NOTE | 2025-09-16 17:13 | PC.NURSE ---
2633- called Dr. Mcginnis to clarify the hospitalist consult per request of Dr. Monteiro. Dr. Mcginnis confirmed he would like a hospitalist consult and not a neurology consult at this time.
--- NOTE | 2025-09-16 17:14 | PC.NURSE ---
162- Called Dr. Monteiro to confirm Dr. Moore order of wanting a hospitalist consult instead of neurology. Dr. Monteiro states someone from their team will come to see pt soon.
--- NOTE | 2025-09-16 17:28 | LDADM ---
This patient, Yuni Mejia, was admitted to [facility] on 09/16/25 at 14:51. Patient/family oriented to hospital policies and general routines including ID bracelet, bed and alarms, visiting hours, pain management, procedures, bathroom and other care routines, personal items, smoking policy, room service/diet and guest tray routines, security routines, and visiting hours. Patient/Family are encouraged to report perceived risks to care and to ask questions if they do not understand what they are told or what they should do. See OBIX for further documentation.
--- OUTSIDE RECORDS SUMMARY | 2025-09-16 17:49 | XMS_ITS ---
Author Organization Unknown Address [address] [place] [phone] Phone Care Team Providers Care Bed Laster Name Role Phone JUAN BOLDEN Attending Unavailable SEAN Balderrama Primary Unavailable Immunization Immunization Date Status Additional Notes Code Code System MMR 04/18/2000 Completed 03 CVX MMR 06/29/2004 Completed 03 CVX Hep B, adolescent or pediatric 1999 Completed 08 CVX Hep B, adolescent or pediatric 1999 Completed 08 CVX Hep B, adolescent or pediatric 07/29/2000 Completed 08 CVX IPV 1999 Completed 10 CVX IPV 1999 Completed 10 CVX IPV 04/18/2000 Completed 10 CVX IPV 08/30/2000 Completed 10 CVX IPV 06/29/2004 Completed 10 CVX influenza, split (incl. purified surface antigen) 08/18/2010 Completed 15 CV X Hib, unspecified formulation 1999 Completed 17 CVX Hib, unspecified formulation 1999 Completed 17 CVX Hib, unspecified formulation 1999 Completed 17 CVX Hib, unspecified formulation 08/30/2000 Completed 17 CVX DTaP 1999 Completed 20 CVX DTaP 1999 Completed 20 CVX DTaP 1999 Completed 20 CVX DTaP 04/18/2000 Completed 20 CVX DTaP 08/30/2000 Completed 20 CVX DTaP 06/29/2004 Completed 20 CVX varicella 07/29/2000 Completed 21 CVX varicella 08/31/2014 Completed 21 CVX Hib-Hep B 04/18/2000 Completed 51 CVX influenza, unspecified formulation 08/25/2005 Completed 88 CVX meningococcal MCV4P 01/05/2017 Completed 114 CVX Tdap 06/21/2012 Completed 115 CVX Meningococcal MCV4O 06/21/2012 Completed 136 CVX Influenza, live, quadrivalen t, intranasal 08/31/2014 Completed 149 CVX HPV9 01/05/2017 Completed 165 CVX Results CHEST 2V - Completed: 2023 19:27 LOINC: EXAM DESCRIPTION: CHEST 2V REASON FOR STUDY: Chest pain and dizziness. Some SOB. Onset 3 days ago, worsening today. Duration: 3 days TECHNIQUE: Frontal and lateral views of the chest. COMPARISON: 06/25/2024 FINDINGS: LUNGS AND PLEURA: No focal airspace opacity, pleural effusion, or pneumothorax identified. HEART/MEDIASTINUM: Trachea midline. Cardiac silhouette normal in size. Mediastinal contours appear normal. BONES: Unremarkable. CHEST WALL: Unremarkable. UPPER ABDOMEN: Unremarkable. IMPRESSION: Unremarkable chest radiographs. THIS IS AN ELECTRONICALLY VERIFIED FINAL REPORT 08/04/2024 8:15 PM - Electronically signed by Jarad Root M.D. AR: CHAUNCEY Report ID: [id number] Reading Location: [place] [address] Social History Type Status Start Date End Date Code Code Syst em Smoking History Never smoker (Never Smoked) [id number] SNOMED CT Sex Female Assessment You had the following problems:PAIN IN UNSPECIFIED JOINTUNSPECIFIED ABDOMINAL PAIN Hospital Discharge Instructions Should you have any questions prior to discharge, please contact a member of your healthcare team. If you have left the hospital and have any questions, please contact your primary care physician. Reason For Referral No Data Found Problems Problem Start Date Resolved Date Status Code Code System PAIN IN UNSPECIFIED JOINT active 5767 6002 SNOMED-CT UNSPECIFIED ABDOMINAL PAIN active 215 72252 SNOMED-CT Allergies and Adverse Reactions Allergy Substance Reaction Severity Start Date Concern Status Co de Code System AMOXICILLIN Active 723 RxNorm TERBUTALINE Active 52674 RxNorm Plan of Treatment Stress Test Treadmill 01/21/2025 Pricing Intern Consult 04/27/2025 Encounters Encounter Diagnosis Start Date Code Code Sys tem Chest pain, unspecified 08/04/2024 SNOM ED-CT Personal Care Team Section Performer Name Performer Role Active Date Inactive KRAIG Noriega PCP - Primary care physician 2021-10 0-24 2024-09-12 KRAIG ESTRADA PCP - Primary care physician 0 1-10 2024-09-12 KRAIG ESTRADA PCP - Primary care physician 0 -10 2024-09-12 KRAIG ESTRADA PCP - Primary care physician 0 -16 2024-09-12 Hong Abdi PCP - Primary care physician 2024-09-12 Imaging Narrative Notes
--- OUTSIDE RECORDS SUMMARY | 2025-09-16 17:50 | XMS_ITS | Continuity of Care Document ---
Author Organization [facility], [facility] Address [address] [place] [address] [place] [address] Care Team Providers Care Wash Box Operator Name Role Phone CARLOS ESTRADA Primary Care Provider [phone] Assessment No assessment recorded. Plan of Treatment Reminders Order Date Submit Date Provider Last Modified By Organization Details Last Modified Time Details Appointments None record ed. Lab None record ed. Referral None record ed. Procedures None record ed. Surgeries None record ed. Imaging US, obstet sandra, follow -up 025 08/04/20 25 [email or web address], [address], [place], [address], 22:15:50 Medication Orders None record ed. Patient TargetsNo targets recorded. Patient InstructionsNo instructions recorded. Reason for Referral None Reported. Results Created Date Observation Date Name Description Value Unit Range Abnormal Flag Note LastModifiedBy Organization Detail LastModifiedTime 03/06/20 25 03/06/2025 [UNIT Y] ANEUP LOIDY NIPT fraction 5.7% normal Not Available [facility] [address], [place], [address], 03/06/2025 03:58:26 03/06/20 25 03/06/2025 [UNIT Y] ANEUP LOIDY NIPT sex chromosome aneuploidy NOT DETECT ED normal Not Available [facility] [address], [place], [address], 03/06/2025 03:58:26 03/06/20 25 03/06/2025 [UNIT Y] ANEUP LOIDY NIPT monosomy X LOW RISK <1 in 10,000 normal Not Available [facility] [address], [place], [address], 03/06/2025 03:58:26 03/06/20 25 03/06/2025 [UNIT Y] ANEUP LOIDY NIPT trisomy 13 LOW RISK <1 in 10,000 normal Not Available [facility] [address], [place], [address], 03/06/2025 03:58:26 03/06/20 25 03/06/2025 [UNIT Y] ANEUP LOIDY NIPT trisomy 18 LOW RISK <1 in 10,000 normal Not Available [facility] [address], [place], [address], 03/06/2025 03:58:26 03/06/20 25 03/06/2025 [UNIT Y] ANEUP LOIDY NIPT trisomy 21 LOW RISK <1 in 10,000 normal Not Available [facility] [address], [place], [address], 03/06/2025 03:58:26 03/06/20 25 03/06/2025 [UNIT Y] ANEUP LOIDY NIPT sex FEMALE normal Not Available [facility] [address], [place], [address], 03/06/2025 03:58:26 03/06/20 25 03/06/2025 [UNIT Y] ANEUP LOIDY NIPT gestation SINGLE TON normal Not Available [facility] [address], [place], [address], 03/06/2025 03:58:26 03/06/20 25 03/06/2025 [UNIT Y] ANEUP LOIDY NIPT for detailed report, see pdf See PDF normal Not Available [facility] [address], [place], [address], 03/06/2025 03:58:26 03/02/2003/02/2025 CULTU RE: URINE result report SEE RESULT S BELOW Test: Cultu re: Urine Speci men Sourc e: Urine - Clean Catch Speci men Type: Urine Speci men Date: 025 1455 Resul t Date: 025 2138 Resul t Statu s: Final resul t Abnor mal: No Resul ting Lab: [facility] [address] [facility] [address] Tel: CULTU RE ----- ----- ----- --- No growt h in 1 day (dete ction level of 10,00 0 colon ies / ml.) Not Available [facility] (Lab) [address] [facility], [place], [address], 03/03/2025 22:42:27 03/12/2003/12/2025 CULTU RE: URINE result report SEE RESULT S BELOW Test: Cultu re: Urine Speci men Sourc e: Urine - Clean Catch Speci men Type: Urine Speci men Date: 2024 1600 Resul t Date: 2024 0610 Resul t Statu s: Final resul t Abnor mal: No Resul ting Lab: [facility] [address] [facility] [address] Tel: CULTU RE ----- ----- ----- --- No growt h in 1 day (dete ction level of 10,00 0 colon ies / ml.) Not Available [facility] (Lab) [address] [facility], [place], [address], 03/14/2025 07:15:03 03/12/2003/12/2025 urina lysis , dipst ick Leukocytes ++ Not Available [address], [place], [address], 03/12/2025 16:45:06 03/12/2003/12/2025 urina lysis , dipst ick Protein + Not Available [facility] [address], [place], [address], 03/12/2025 16:45:06 03/12/20 25 03/12/2025 urina lysis , dipst ick pH 5 Not Available [facility] [address], [place], [address], 03/12/2025 16:45:06 03/12/20 25 03/12/2025 urina lysis , dipst ick Blood trace Not Available [facility] [address], [place], [address], 03/12/2025 16:45:06 03/12/20 25 03/12/2025 urina lysis , dipst ick Specific Spencer 1.015 Not Available [facility] [address], [place], [address], 03/12/2025 16:45:06 03/12/20 25 03/12/2025 urina lysis , dipst ick Ketone +++ Not Available [facility] [address], [place], [address], 03/12/2025 16:45:06 03/31/20 25 03/31/2025 TSH, REFLE X FREE T4 TSH 0.42 uIU/m L 0.30-5 .33 Not Available [facility] (Lab) [address], [place], [address], 04/01/2025 03:05:12 03/31/20 25 03/31/2025 CULTU RE: URINE result report SEE RESULT S BELOW Test: Cultu re: Urine Speci men Sourc e: Urine Voide d Speci men Type: Urine Speci men Date: 1710 Resul t Date: 6 Resul t Statu s: Final resul t Abnor mal: No Resul ting Lab: [facility] [address] [facility] [address] [facility] [address] Tel: CULTU RE ----- ----- ----- --- Cultu re resul t (>=3 organ isms prese nt) indic ates possi ble conta minat ion. Repea t cultu re if sympt oms indic ate. Not Available [facility] (Lab) [address] [facility], [place], [address], 04/01/2025 23:59:19 03/31/20 25 03/31/2025 urina lysis , dipst ick Leukocytes +1 Not Available [address], [place], [address], 03/31/2025 09:23:13 03/31/20 25 03/31/2025 urina lysis , dipst ick Nitrite normal Not Available [facility] [address], [place], [address], 03/31/2025 09:23:13 03/31/20 25 03/31/2025 urina lysis , dipst ick Urobilinogen normal Not Available [facility] david [address], [place], [address], 03/31/2025 09:23:13 03/31/20 25 03/31/2025 urina lysis , dipst ick Protein trace Not Available [facility] [address], [place], [address], 03/31/2025 09:23:13 03/31/20 25 03/31/2025 urina lysis , dipst ick pH 5 Not Available [facility] [address], [place], [address], 03/31/2025 09:23:13 03/31/20 25 03/31/2025 urina lysis , dipst ick Specific Spencer 1.020 Not Available [facility] nita [address], [place], [address], 03/31/2025 09:23:13 03/31/20 25 03/31/2025 urina lysis , dipst ick Ketone normal Not Available [facility] [address], [place], [address], 03/31/2025 09:23:13 03/31/20 25 03/31/2025 urina lysis , dipst ick Bilirubin normal Not Available [facility] anna [address], [place], [address], 03/31/2025 09:23:13 03/31/20 25 03/31/2025 urina lysis , dipst ick Glucose normal Not Available [facility] [address], [place], [address], 03/31/2025 09:23:13 03/31/20 25 03/31/2025 urina lysis , dipst ick Appearance normal Not Available [facility] domingo [address], [place], [address], 03/31/2025 09:23:13 03/31/20 25 03/31/2025 urina lysis , dipst ick Color normal Not Available [facility] [address], [place], [address], 03/31/2025 09:23:13 04/01/20 25 04/01/2025 [facility], DENIS bacterial vaginosis (bv), tma Negati ve negati ve Not Available [facility] (Lab) [address] [place] [place], [address], 04/02/2025 14:08:45 04/01/20 25 04/01/2025 [facility] SWAB PLUS, DENIS mekhi species, tma Negati ve negati ve Not Available [facility] (Lab) [address] [place], [address], 04/02/2025 14:08:45 04/01/20 25 04/01/2025 [facility] SWAB PLUS, DENIS mekhi glabrata, tma Negati ve negati ve Not Available [facility] (Lab) [address] [place], [address], 04/02/2025 14:08:45 04/01/20 25 04/01/2025 [facility] SWAB PLUS, DENIS trichomonas vaginalis, tma Negati ve negati ve Not Available [facility] (Lab) [address] [place], [address], 04/02/2025 14:08:45 04/01/20 25 04/01/2025 [facility] SWAB PLUS, DENIS chlamydia trachomatis, PCR Negati ve negati ve Not Available [facility] (Lab) [address] [place], [address], 04/02/2025 14:08:45 04/01/20 25 04/01/2025 [facility] SWAB PLUS, DENIS neisseria [...] ded in this panel . Not Available [facility] (Lab) [address] [place], [address], 04/02/2025 14:08:45 04/22/20 25 04/22/2025 CULTU RE: URINE result report SEE RESULT S BELOW Test: Cultu re: Urine Speci men Sourc e: Urine Voide d Speci men Type: Urine Speci men Date: 2024 1314 Resul t Date: 2024 0322 Resul t Statu s: Final resul t Abnor mal: No Resul ting Lab: [facility] [address] [facility] [address] Tel: CULTU RE ----- ----- ----- --- No growt h in 1 day (dete ction level of 10,00 0 colon ies / ml.) Not Available [facility] (Lab) [address], [place], [address], 04/24/2025 04:28:01 04/22/20 25 04/22/2025 urina lysis , dipst ick Leukocytes + Not Available [facility] [address], [place], [address], 04/22/2025 10:01:51 04/22/20 25 04/22/2025 urina lysis , dipst ick Protein + Not Available [facility] [address], [place], [address], 04/22/2025 10:01:51 04/22/20 25 04/22/2025 urina lysis , dipst ick pH 8 Not Available [facility] [address], [place], [address], 04/22/2025 10:01:51 04/22/20 25 04/22/2025 urina lysis , dipst ick Blood + Not Available [facility] [address], [place], [address], 04/22/2025 10:01:51 04/22/20 25 04/22/2025 urina lysis , dipst ick Specific Spencer 1.010 Not Available [facility] [address], [place], [address], 04/22/2025 10:01:51 04/22/20 25 04/22/2025 urina lysis , dipst ick Ketone + Not Available [place] [address], [place], [address], 04/22/2025 10:01:51 06/23/20 25 06/23/2025 HEMAT OCRIT (HCT) HCT 35.6 % (based on docume nted legal sex) 34.0-4 5.0 Not Available [facility] (Lab) [address] [facility], [place], [address], 06/24/2025 11:45:32 06/23/20 25 06/23/2025 HEMOG LOBIN (HGB) HGB 11.1 g/dL (based on docume nted legal sex) 11.6-1 5.4 low Not Available [facility] (Lab) [address] [place], [address], 06/24/2025 11:45:32 06/23/20 25 06/23/2025 GTT - GESTA ROLAND L SCREE N, ACOG OB glucose, 1 hour screen 180 mg/dL 70-135 high Not Available [facility] (Lab) [address] [place], [address], 06/24/2025 11:45:33 06/23/20 25 06/23/2025 HIV 1/2 ANTIG EN/AN TIBOD Y, REFLE X CONFI RMATI ON HIV antigen/anti body Nonrea ctive nonrea ctive HIV-1 antig en and HIV-1 /HIV- 2 antib odies were not detec greg. No labor atory evide nce of HIV infec tion. Not Available [facility] (Lab) [address] [facility], [place], [address], 06/24/2025 11:45:33 06/23/20 25 06/23/2025 RPR SCREE N, REFLE X TITER /CONF IRMAT ION RPR qualitative Nonrea ctive nonrea ctive Not Available [facility] (Lab) [address] [facility], [place], [address], 06/24/2025 11:45:34 07/21/20 25 07/21/2025 CULTU RE: URINE result report SEE RESULT S BELOW Test: Cultu re: Urine Speci men Sourc e: Urine - Clean Catch Speci men Type: Urine Speci men Date: 2024 1024 Resul t Date: 2024 0252 Resul t Statu s: Final resul t Abnor mal: No Resul ting Lab: [facility] [address] [facility] [address] Tel: CULTU RE ----- ----- ----- --- No growt h in 1 day (dete ction level of 10,00 0 colon ies / ml.) Not Available [facility] (Lab) [address] [facility], [place], [address], 07/23/2025 03:57:01 07/21/2007/21/2025 urina lysis , dipst ick Leukocytes ++ [facility] [address], [place], [address], 07/21/2025 11:03:04 07/21/20 25 07/21/2025 urina lysis , dipst ick Nitrite neg Not Available [address], [place], [address], 07/21/2025 11:03:04 07/21/20 25 07/21/2025 urina lysis , dipst ick Urobilinogen neg Not Available [facility] [address], [place], [address], 07/21/2025 11:03:04 07/21/20 25 07/21/2025 urina lysis , dipst ick Protein + Not Available [facility] [address], [place], [address], 07/21/2025 11:03:04 07/21/20 25 07/21/2025 urina lysis , dipst ick pH 5 Not Available [facility] [address], [place], [address], 07/21/2025 11:03:04 07/21/20 25 07/21/2025 urina lysis , dipst ick Specific Spencer 1.030 Not Available [facility] nita [address], [place], [address], 07/21/2025 11:03:04 07/21/20 25 07/21/2025 urina lysis , dipst ick Ketone +++ Not Available [facility] [address], [place], [address], 07/21/2025 11:03:04 07/21/20 25 07/21/2025 urina lysis , dipst ick Bilirubin neg Not Available [facility] [address], [place], [address], 07/21/2025 11:03:04 07/21/20 25 07/21/2025 urina lysis , dipst ick Glucose neg Not Available [facility] [address], [place], [address], 07/21/2025 11:03:04 07/21/20 25 07/21/2025 urina lysis , dipst ick Appearance cloudy Not Available [address], [place], [address], 07/21/2025 11:03:04 07/21/20 25 07/21/2025 urina lysis , dipst ick Color dark Not Available [facility] [address], [place], [address], 07/21/2025 11:03:04 08/04/20 25 08/04/2025 CMP(C OMPRE HENSI VE METAB OLIC PANEL ) sodium 138 mmol/ L 133-14 6 Not Available [facility] (Lab) [address] [facility], [place], [address], 08/05/2025 13:39:18 08/04/20 25 08/04/2025 CMP(C OMPRE HENSI VE METAB OLIC PANEL ) potassium 4.0 mmol/ L 3.5-5. 1 Not Available [facility] (Lab) [address] [facility], [place], [address], 08/05/2025 13:39:18 08/04/20 25 08/04/2025 CMP(C OMPRE HENSI VE METAB OLIC PANEL ) chloride 105 mmol/ L 98-107 Not Available [facility] (Lab) [address] [facility], [place], [address], 08/05/2025 13:39:18 08/04/20 25 08/04/2025 CMP(C OMPRE HENSI VE METAB OLIC PANEL ) carbon dioxide 25 mmol/ L 21-31 Not Available [facility] (Lab) [address] [facility], [place], [address], 08/05/2025 13:39:18 08/04/20 25 08/04/2025 CMP(C OMPRE HENSI VE METAB OLIC PANEL ) anion gap 8 mmol/ L 4-13 Not Available [facility] (Lab) [address] [place], [address], 08/05/2025 13:39:18 08/04/20 25 08/04/2025 CMP(C OMPRE HENSI VE METAB OLIC PANEL ) blood urea nitrogen 10 mg/dL 7-25 Not Available [facility] (Lab) [address] [facility], [place], [address], 08/05/2025 13:39:18 08/04/20 25 08/04/2025 CMP(C OMPRE HENSI VE METAB OLIC PANEL ) creatinine 0.41 mg/dL 0.60-1 .30 low Not Available [facility] (Lab) [address] [facility], [place], [address], 08/05/2025 13:39:18 08/04/20 25 08/04/2025 CMP(C OMPRE HENSI VE METAB OLIC PANEL ) egfrcr (CKD-epi 2020) >90 mL/mi n/1.7 3_m2 >=60 Not Available [facility] (Lab) [address] [facility], [place], [address], 08/05/2025 13:39:18 08/04/20 25 08/04/2025 CMP(C OMPRE HENSI VE METAB OLIC PANEL ) calcium 8.9 mg/dL 8.3-10 .5 Not Available [facility] (Lab) [address] [facility], [place], [address], 08/05/2025 13:39:18 08/04/20 25 08/04/2025 CMP(C OMPRE HENSI VE METAB OLIC PANEL ) glucose 116 mg/dL 70-100 high Not Available [facility] (Lab) [address] [facility], [place], [address], 08/05/2025 13:39:18 08/04/20 25 08/04/2025 CMP(C OMPRE HENSI VE METAB OLIC PANEL ) protein, total 6.1 g/dL 6.4-8. 3 low Not Available [facility] (Lab) [address] [facility], [place], [address], 08/05/2025 13:39:18 08/04/20 25 08/04/2025 CMP(C OMPRE HENSI VE METAB OLIC PANEL ) albumin 3.5 g/dL 3.5-5. 0 Not Available [facility] (Lab) [address] [facility], [place], [address], 08/05/2025 13:39:18 08/04/20 25 08/04/2025 CMP(C OMPRE HENSI VE METAB OLIC PANEL ) ALT 11 units /L 9-43 Not Available [facility] (Lab) [address] [facility], [place], [address], 08/05/2025 13:39:18 08/04/20 25 08/04/2025 CMP(C OMPRE HENSI VE METAB OLIC PANEL ) alkaline phosphatase 98 units /L 34-104 Not Available [facility] (Lab) [address] [facility], [place], [address], 08/05/2025 13:39:18 08/04/20 25 08/04/2025 CMP(C OMPRE HENSI VE METAB OLIC PANEL ) AST 15 units /L 13-39 Not Available [facility] (Lab) [address] [facility], [place], [address], 08/05/2025 13:39:18 08/04/20 25 08/04/2025 CMP(C OMPRE HENSI VE METAB OLIC PANEL ) bilirubin, total 0.3 mg/dL 0.2-1. 2 Not Available [facility] (Lab) [address] [facility], [place], [address], 08/05/2025 13:39:18 08/04/20 25 08/04/2025 BILE ACIDS , TOTAL bile acids, total 4 umol/ L 0-10 Test Perfo rmed by: [facility] [address] [address] Not Available [facility] (Lab) [address] [facility], [place], [address], 08/05/2025 13:39:19 03/02/20 25 03/02/2025 US, obste tric, nucha l trans lucen cy No observ ation record ed. [email or web address] [facility] [address], [place], [address], 03/02/2025 13:35:30 03/02/20 25 03/02/2025 US, obste tric, nucha l trans lucen cy No observ ation record ed. [email or web address] [facility] [address], [place], [address], 03/03/2025 14:08:39 03/08/20 25 03/08/2025 US, obste tric, 1st trime ster No observ ation record ed. [email or web address] [facility] [address], [place], [address], 03/08/2025 12:22:22 03/08/20 25 03/08/2025 US, obste tric, 1st trime ster No observ ation record ed. [email or web address] [facility] [address], [place], [address], 03/10/2025 15:03:13 04/01/20 25 03/24/2025 qamar r monit or No observ ation record ed. [address] [facility], [place], [address], 04/08/2025 12:36:45 04/01/20 25 03/22/2025 qamar r monit or No observ ation record ed. [address] (Pulmonary) [address] [place] [address] [address], [address], 04/06/2025 08:59:34 04/20/20 25 04/20/2025 US, obste tric, limit ed No observ ation record ed. [email or web address] [facility] [address], [place], [address], 04/20/2025 17:39:30 04/20/20 25 04/20/2025 US, obste tric, follo w-up No observ ation record ed. [address] [address], [place], [address], 04/23/2025 08:32:54 04/28/20 25 04/28/2025 US, obste tric, 2nd or 3rd trime ster No observ ation record ed. [email or web address] [facility] [address], [place], [address], 04/28/2025 17:48:42 04/28/20 25 04/28/2025 US, obste tric, 2nd or 3rd trime ster No observ ation record ed. [email or web address] [facility] [address], [place], [address], 05/04/2025 22:16:11 05/07/2005/07/2025 non-s tress test No observ ation record ed. [email or web address] [place] [address] [address], [place], [address], 05/28/2025 13:33:54 05/21/2005/21/2025 CT, head + brain , w/o contr ast No observ ation record ed. [email or web address], [place], [address], 05/24/2025 13:48:57 05/28/2005/28/2025 US, obste tric, follo w-up No observ ation record ed. [email or web address] [address], [place], [address], 05/28/2025 17:32:34 05/28/2005/28/2025 US, obste tric, follo w-up No observ ation record ed. [email or web address] [facility] [address], [place], [address], 06/01/2025 15:13:13 06/08/20 25 06/07/2025 US, obste tric, follo w-up No observ ation record ed. [email or web address] [facility] [address] [facility], [place], [address], 06/15/2025 10:53:46 07/07/20 25 07/07/2025 US, obste tric, follo w-up No observ ation record ed. [email or web address] [facility] [address], [place], [address], 07/07/2025 13:18:01 07/07/20 25 07/07/2025 US, obste tric, follo w-up No observ ation record ed. [email or web address] [address] [address], [place], [address], 07/07/2025 11:29:37 08/04/20 25 08/04/2025 US, obste tric, follo w-up No observ ation record ed. [email or web address] [facility] [address], [place], [address], 08/04/2025 15:08:50 08/04/2008/04/2025 US, obste tric, follo w-up No observ ation record ed. [email or web address] [facility] [address], [place], [address], 08/06/2025 10:41:50 08/11/2008/11/2025 non-s tress test No observ ation record ed. [email or web address] [facility] [address], [place], [address], 08/11/2025 17:37:52 08/11/20 non-s tress test No observ ation record ed. [email or web address] [facility] [address], [place], [address], 08/11/2025 17:38:11 08/15/2008/15/2025 non-s tress test No observ ation record ed. [address], [place], [address], 08/21/2025 10:18:57 08/15/2008/15/2025 US, obste tric, bioph ysica l profi le No observ ation record ed. [place] [id number] [facility] [address], [place], [address], 08/17/2025 10:50:53 08/18/2008/18/2025 US, obste tric, bioph ysica l profi le + non-s tress test No observ ation record ed. [email or web address] [facility] [address], [place], [address], 08/18/2025 10:21:39 08/18/2008/18/2025 US, obste tric, bioph ysica l profi le + non-s tress test No observ ation record ed. [email or web address] [facility] [address], [place], [address], 08/18/2025 10:35:44 08/18/2008/18/2025 non-s tress test No observ ation record ed. [email or web address] [facility] [address], [place], [address], 08/18/2025 17:34:03 08/18/20 non-s tress test No observ ation record ed. [facility] [address], [place], [address], 08/18/2025 16:06:09 08/25/20 25 08/25/2025 US, obste tric, bioph ysica l profi le + non-s tress test No observ ation record ed. [email or web address] [facility] [address], [place], [address], 08/25/2025 18:52:06 08/25/2008/25/2025 US, obste tric, follo w-up No observ ation record ed. [email or web address] [facility] [address], [place], [address], 08/25/2025 15:47:28 08/25/2008/25/2025 non-s tress test No observ ation record ed. [email or web address] [facility] [address], [place], [address], 08/25/2025 18:12:15 08/25/20 non-s tress test No observ ation record ed. [email or web address] [facility] [address], [place], [address], 08/25/2025 17:21:19 08/30/2008/30/2025 non-s tress test No observ ation record ed. [email or web address] [address], [place], [address], 09/15/2025 15:26:49 09/01/20 25 09/01/2025 non-s tress test No observ ation record ed. [place] [id number] [facility] [address], [place], [address], 09/13/2025 11:32:22 09/01/2009/01/2025 US, obste tric No observ ation record ed. [place] [id number] [facility] [address], [place], [address], 09/02/2025 15:56:01 09/01/20 25 09/01/2025 non-s tress test No observ ation record ed. [email or web address], [place], [address], 09/02/2025 14:32:38 09/16/20 25 09/16/2025 imagi ng/di agnos tic resul t No observ ation record ed. [facility] [address], [place], [address], 09/16/2025 18:07:05 Result Notes None recorded. Problems Name Problem SNOMED Code Status Onset Date Resolution Date Notes Provider Name and Address Organization Details Recorded Time Hypereme sis [id number] Completed phenerga n now prn Asia ramos [facility] 2 16:43:51 Anxiety in pregnanc y 7042141232 [id number] Completed will continue to monitor Asia ramos [facility] 2 16:43:51 Past pregnanc y history of gestatio nal diabetes mellitus [id number] Completed Early 1 hr GTT @ 20wks 11/03 APPT Asia ramos [facility] 2 16:43:51 Spinal muscular atrophy 6770960 Completed Carrier - Not in contact with FOB. Asia ramos [facility] 2 16:43:51 Anxiety 44795444 Completed prozac Karina ramos [facility] 4 11:00:46 Nausea 228571658 Completed d/c zofran pump 11/08 per pt request Karina ramos [facility] 4 11:00:46 Postpart um hemorrha ge [id number] Completed hx of - 2017 with d&c Karina ramos [facility] 4 11:00:46 Normal pregnanc y in multigra jessy [id number] 49239 Completed 201907/05/2021 Encounte r for supervis ion of other normal pregnanc y, 3rd trimeste r;Record ed Elsewher e: No [facility]: E[facility] Home Health Attendant yvrose: N Practi ce ID: [id number] Gigi lable Time: 10:45:00 AM Karina ramos [facility] 10:15:27 Gestatio n period, 37 weeks 84403608 Completed 201907/05/2021 37 weeks gestatio n of pregnanc y;Record ed Elsewher e: No Locat ion: [facility] S ource: EHR Home Health Attendant yvrose: N Practi ce ID: [id number] Gigi lable Time: 09:00:00 AM Karina ramos, [facility] 10:15:[address] Concept Completed 201907/05/2021 Matern care for abnlt fetl hrt rate or rhym, 3rd tri, unsp;Rec orded Elsewher e: No Locat ion: [facility] S ource: EHR Home Health Attendant yvrose: N Practi ce ID: 0001 Gigi lable Time: 08:45:00 AM Karina ramos [facility] 10:15:29 Gestatio nal diabetes mellitus 89625454 Completed 201907/05/2021 Gestatio nal diabetes mellitus in pregnanc y, diet controll ed;Recor ded Elsewher e: No Locat ion: [facility] S ource: EHR Home Health Attendant yvrose: N Practi ce ID: 0001 Gigi lable Time: 11:45:00 AM Karina ramos [facility] 10:15:25 Gestatio n period, 38 weeks 51483099 Completed 201907/05/2021 38 weeks gestatio n of pregnanc y;Record ed Elsewher e: No Locat ion: [facility] S ource: EHR Home Health Attendant yvrose: N Practi ce ID: 0001 Gigi lable Time: 11:30:00 AM Karina ramos [facility] 10:15:13 Amenorrh ea 73422436 Completed 202007/10/2021 Tammi Jones null, [facility] 13:08:35 Pregnanc y 14010742 Completed 202003/29/2022 Emma Dykes null, [facility] 5 12:28:48 Pregnanc y 28333654 Completed 202304/22/2024 Emma Dykes null, [facility] 5 12:28:48 Headache 06183653 Active 2023 Karina Burroughs null, [facility] 16:19:28 Pregnanc y 92391829 Completed 202309/14/2025 Emma Dykes null, [facility] 12:28:48 Uncompli cated moderate persiste nt asthma 400645842 Completed 2024 albutero l prn Shawn Bradley MD [address], [place], [address], [facility] 13:08:36 Anxiety 45908645 Completed 2024 sertrali ne started 03/02/25 changed to prozac 10 on Shawn Bradley MD [address], [place], [address], [facility] 5 17:05:48 Nausea and vomiting 44224437 Completed 2024 Shawn Bradley MD [address], [place], [address], [facility] 13:20:27 Placenta circumva llata 7603343 Completed 2024 32wk [facility] 09:44:35 Frequent headache 821273406 Completed 2024 transpor t to [facility] 05/21, discharg e 05/23 MFM referral faxed 05/24 [facility] pending per Toya RN [facility] unable to see [...] more than 2-3 times a week. [facility] 10:55:26 Abnormal placenta affectin g manageme nt of mother 61709211 Completed 2024 MCI serial growth [facility] 5 10:46:25 Iron deficien cy anemia 35079758 [facility] 200[facility] x1 HGB 10.6 [facility] 15:21:25 Gestatio nal diabetes mellitus 55630798 Completed 2024 checking bs QID - ruled in GDM Referral faxed to [facility] 07/[address] [facility] 5 14:36:52 Notes:Order faxed to [facility] r access 08/10 for PICC line, and home health already caring for pt. Vladimir RDZ at [phone] Problem Notes None recorded. Procedures Surgical History Date Name Laterality Status Provider Name and Address Organization Details Recorded Time 025 SALPINGECTOMY, LAPAROSCOPIC (SURG) completed Not Available [facility] 09/06/2025 11:19:17 025 Date of Last Pap Smear completed Karina Burroughs [facility] 01/28/2025 11:19:42 024 Nexplanon Removal completed Shawn Bradley MD [address], [place], [address], [facility] 08/05/2024 15:09:58 024 Control Implant Insertion completed Anju Mcnamara CNM [address], [place], [address], [facility] 05/08/2024 17:59:34 024 cholecystectomy completed Karina Burroughs [facility] 03/31/2025 09:18:57 018 Dilation and Curettage completed Karina Burroughs [facility] 07/05/2021 10:17:50 Imaging Results None recorded. Procedure Notes None recorded. Medical Equipment None Reported. Allergies Allergen ID Allergen Name Allergen Category Reaction Reaction Severity Criticality Documentation Date Start Date Code Code System Note Provider Name and Address Organization Details Recorded Time 47446 terbutali ne medicatio n anaphylax is Not available Not available 01/27/20252021 97079 RxNorm Karina ramos, [facility] 16:19:27 29554 amoxicill in medicatio n Not available Not available Not available 09/10/2025 723 RxNorm Not Available [employer] - External Data Service - prod 16:39:37 37326 terbinafi ne medicatio n anaphylax is Not available [facility] 09/10/20252024 50447 RxNorm Not Available [employer] - prod 16:40:54 Medications Name [...] Available Not Available Not Available sertralin e 100 mg tablet Take 1 tablet every day by oral route. 2024 active Not Available Not Available Not Avai lable terconazo le 0.8 % vaginal cream INSERT [...] completed Not Available Not Available Not Available lamotrigi ne 25 mg tablet Take 2 tablets twice a day by oral route. 2024 active Not Available Not Available Not Avai lable Macrobid 100 mg capsule Take 1 capsule [...] Yes Loca tion: [facility] odify By: prabhjot Lee r DateTime : [...] n (supplie d by office) insert lot [id number] Exp 01/2026 Not Available Not Available Not Available 28 mg iron-800 mcg tablet 07/05 completed Prescrib ed Elsewher e: Yes Loca tion: [facility] odify By: prabhjot Lee r DateTime : 01/14/20 10:45:00 AM Not Available Not Available Not Available lidocaine 5 % topical ointment APPLY OINTMENT EXTERNAL LY TO RIBS THREE TIMES DAILY NEEDED 01/14 completed Not Available Not Available Not Available MANAGER TERMINAL-PNV-DH A 28 mg iron-1 mg-200 mg capsule [...] Updated DateTime 08/04/2025 162.56 cm 31.1 kg/m2 86188.22 g 112/71 mm[Hg] Toya Perkins [facility] 08/04/2025 15:09:59 Social History Question Answer Notes LastModified by Organizat ion Details LastModified Time Tobacco Smoking Status Former Smoker Karina ramos, [facility] 07/05/2021 09:06:21 If You Are , What Was Your Level Of Alcohol Consumption Prior To ? Occasional [email or web address] Information not available 03/31/2025 Are You Blind Or Do You Have Difficulty Seeing? No [email or web address] Information not available 07/05/2021 What Is Your Level Of Caffeine Consumption? Heavy [email or web address] Information not available 07/05/2021 In The 14 Days Before Symptom Onset, Have You Had Close Contact With A Laboratory-confir med COVID-19 While That Case Was Ill? No [email or web address] Information not available 07/05/2021 In The 14 Days Before Symptom Onset, Have You Had Close Contact With A Person Who Is Under Investigation For COVID-19 While That Person Was Ill? No [email or web address] Information not available 07/05/2021 Have You Been To An Area Known To Be High Risk For COVID-19? No [email or web address] Information not available 07/05/2021 Are You Deaf Or Do You Have Serious Difficulty Hearing? No [email or web address] Information not available 07/05/2021 What Type Of Diet Are You Following? REGULAR [email or web address] Information not available 07/05/2021 Which Illicit Or Recreational Drugs Have You Used? Marijuana [email or web address] Information not available 07/05/2021 Have You Ever Been Counseled For Unhealthy Alcohol Use? No [email or web address] Information not available 07/05/2021 Do You Use Your Seat Belt Or Car Seat Routinely? Yes Information not available 07/05/2021 Do You Have Smoke And Carbon Monoxide Detectors In Your Home? Yes Information not available 07/05/2021 Do You Use Sunscreen Routinely? Yes [email or web address] Information not available 07/05/2021 Has Tobacco Cessation Counseling Been Provided? No [email or web address] Information not available 07/05/2021 Have You Used IV Drugs? No [email or web address] Information not available 07/05/2021 Do You Have Difficulty Walking Or Climbing Stairs? No [email or web address] Information not available 12/06/2021 Sex: Unknown Functional Status Question Answer Note LastModified by Organizat ion Details LastModified Time Do you use any illicit or recreational drugs? Yes [email or web address] Information not available 07/05/2021 Do you or have you ever used any other forms of tobacco or nicotine? Yes [email or web address] Information not available 07/05/2021 What is your level of alcohol consumption? None [email or web address] Information not available 03/31/2025 Do you or have you ever used smokeless tobacco? Never used smokeless tobacco Information not available 07/05/2021 Are you able to walk independently without assistance or assistive devices? YESWOREST [email or web address] Information not available 07/05/2021 Are you able to care for yourself independently? Yes [email or web address] Information not available 12/06/2021 Do you have difficulty dressing, bathing, grooming, or toileting? No [email or web address] Information not available 12/06/2021 Do you or have you ever used e-cigarettes or vape? Current user of electronic cigarettes [email or web address] Information not available 07/05/2021 What is your exercise level? Occasional [email or web address] Information not available 07/05/2021 Mental Status Question Answer Note LastModified by Organization D etails LastModified Time Do you feel stressed (tense, restless, nervous, or anxious, or unable to sleep at night)? [id number] [email or web address] Information not available 07/05/2021 Family History Relationship Description Onset Age of this Age Resolved Age Notes LastModified by Organization Details LastModified Time Father No current problems or disability [email or web address] Not available 05/2021 09:06:31 Mother No current problems or disability [email or web address] Not available 05/2021 09:06:31 Medical History Condition [...] normal Y STIs/STDs Yes Current Control Method None Are cycles usually normal Y Date of Last Colonoscopy Frequency of Cycle (Q days) 28 Sexually Active? Y Menses Monthly Y Date of DEXA bone scan Age of first menstrual cycle 11 Date of Last Pap Smear 01/27/2025 Sexual Problems? N Desired Control Method None LMP Approximate Obstetrics History GPAL:G 6 P 5 0 1 5 Type Value Full Term 5 Spontaneous 1 Living 5 Total 6 Past Encounters Encounter ID Performer Location Encounter Start Date Encounter Closed Date Diagnosis/Indication Diagnosis SNOMED-CT Code Diagnosis ICD10 Code Diagnosis IMO Codes Diagnosis Note [id number] Shawn Bradley MD [facility] [address],[place] [address] 07/07/2025 10:14:22 07/07/2025 11:00:23 Anomaly of placenta 91105189 O43.103 Z3A.30 9913012 [id number] [facility] [address],[place] [address] 07/07/2025 10:14:33 07/07/2025 11:38:54 Gestation period, 30 weeks 07297775 Z3A.30 6628593 cont pnv Nausea 948579929 R11.0 42937 Gestationa l diabetes mellitus 90117257 O24.419 42654855 [id number] [facility] [address],[place] [address] 07/21/2025 09:28:54 07/21/2025 12:36:06 Pain in pelvis 53380690 R10.2 199871 Gestation period, 32 weeks 3619970 Z3A.32 7412234 [id number] Shawn Bradley MD [facility] [address],[place] [address] 08/04/2025 14:02:59 08/04/2025 15:06:33 Gestational diabetes mellitus 93988234 O24.410 O43.103 O43.113 Z3A.34 66369104 [id number] Anju Mcnamara [facility] [address],[place] [address] 08/04/2025 14:21:57 08/04/2025 15:26:03 Gestation period, 34 weeks 38771416 Z3A.34 2777366 Pruritic d isorder of skin 9740438469 L29.9 92577 plan labs today, ursadiol BID Health Concerns Section Related Observation LastModified by Organization Detai ls LastModified Time None Recorded Concern Status LastModified by Organization Details LastModified Time None Recorded Payers Encounter Date Sequence Insurance Name Policy Number Policy Roberts Covered Member ID Roberts Member ID Guarantor Name 08/04/2025 1 [facility] (MEDICAID HMO) [id number] Yuni Mejia [id number] Yuni Mejia Notes Date Note Type Note Provider Name and Address Organization Details Recorded Time 08/04/2025 text/html Generic HPI TemplateReported by Patient Anju E. KRISTEN Mcnamara [address], [place], [address], [place] [facility] 08/04/2025 15:23:50 OBGyn Episode Ob Episode Information Episode Created Date Number of Fetuses Patient Bloodtype Patient rh Status Prepregnancy Weight lbs Domestic Partner Domestic Partner Phone Father Name Loose Hand Packer Status 03/02/20 25 1 B Positive 164 CLOSED Fetus Data First Name Last Name Admitted to NICU Weight (g) Sex Living Outcome Pediatric Complications Fetus ID Race Codes Race Delivery Type Gladis false 4025.62 9 F true Full Term 76442 Vaginal Delivery Problems Problem Notes SDH form completed 5GI consult Tachycardia Holter monitor 72 order- pt sent back on 03-27-25 Cardiology referral faxed per Dr Martínez office calling pt 04/21 to schedule consult scheduled 05/11 11:15AM Problem Name Start Date End Date Resolution Snomed Code Not e Uncomplicated moderate persistent asthma 03/02/2025 634757169 albuterol prn Abnormal placenta affecting management of mother 05/04/2025 84445305 MCI serial grow th us Iron deficiency anemia 05/25/2025 81296495 SS MFM tx [place] 200mg x1 HGB 10.6 Nausea and vomiting 03/02/2025 28400353 Anxiety 03/02/2025 10021894 sertralin e started 03/02/25 changed to prozac 10 on Gestational diabetes mellitus 07/08/2025 75520492 checking bs QID - ruled in GDM Referral faxed to [facility] 07/07 Frequent headache 05/03/2025 777603105 [place] [facility] 05/21, discharge 05/23 MFM referral faxed 05/24 SS Neurology consult pending per KAJAL Pittman [facility] unable to see pt due to insurance 05/[facility] 07/05/25 Level US & Consult (see MFM consult zayas recommendations ) regimen prn Imitrex 50mg for acute migraine, vitamin B2 (Riboflavin) 400mg, Coenzyme q10 300mg and magnesium oxide 200 to 600mg daily. minimize use of Excedrin or Tylenol to no more than 2-3 times a week. 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 went to ed exam done cultures and rx sent, ?FM, await city constable results rfilled zofran, precautions and education f/u [...] Type Weight in lbs Pre/Post Dialysis Refused 168.703784342347 BP Diastolic BP Location Tested BP Systolic [...] Type Weight in lbs Pre/Post Dialysis Refused 169.152015796628 BP Diastolic BP Location Tested BP Systolic [...] Weight in lbs Pre/Post Dialysis Refused Weight 175.369219779844 BP Diastolic BP Location Tested BP Systolic BP Type 68 L arm 115 sitting Fetus Heart Rate Present Fetus Movement A Yes Comments migraines resolved, +FM seei ng m us here reviewed wnl f/u 4 weeks [...] Weight in lbs Pre/Post Dialysis Refused Weight 182.986202095813 BP Diastolic BP Location Tested BP Systolic [...] Weight in lbs Pre/Post Dialysis Refused Weight 181.432202101289 BP Diastolic BP Location Tested BP Systolic BP Type 73 L arm 131 sitting Fetus Heart Rate Present Fetus Movement A Yes Comments viral URI testied neg at urg ent care, nausea resolved, efw 68%, +FM plan education and precautions f/u 2 weeks diagnosed GDM, plan information and referral director, gave list reviewed protein vs carb Flowsheet Date 07/21/2025 Gibson Score Blood Edema Fundus Height Fundus Units Glucose Ketones Leukocytes Nitrite Labor Signs Protein Cervic Dilation Cervic Effacement Cervic Station Type Weight in lbs Pre/Post Dialysis Refused Weight 181.808447760373 BP Diastolic BP Location Tested BP Systolic BP Type 78 L arm 127 sitting Fetus Heart Rate Present A 150 Fetus Movement A Yes Comments rpt urine culture +FM review ed blood sugars, meets with information and referral director today, precautions and education f/u 2 weeks [...] Weight in lbs Pre/Post Dialysis Refused Weight 181.597974184470 BP Diastolic BP Location Tested BP Systolic [...] Weight in lbs Pre/Post Dialysis Refused Weight 183.486136504107 BP Diastolic BP Location Tested BP Systolic [...] Type Weight in lbs Pre/Post Dialysis Refused 184.266121358934 BP Diastolic BP Location Tested BP Systolic [...] Type Weight in lbs Pre/Post Dialysis Refused 184.795971928969 BP Diastolic BP Location Tested BP Systolic [...] Type Weight in lbs Pre/Post Dialysis Refused 184.963779055833 BP Diastolic BP Location Tested BP Systolic [...] Weight in lbs Pre/Post Dialysis Refused Weight 184.324122067812 BP Diastolic BP Location Tested BP Systolic [...] Rate Present Fetus Movement Comments Flowsheet Date 09/14/2025 Gibson Score Blood Edema Fundus Height Fundus Units Glucose Ketones Leukocytes Nitrite Labor Signs Protein Cervic Dilation Cervic Effacement Cervic Station Type Weight in lbs Pre/Post Dialysis Refused Weight 164.202208332657 BP Diastolic BP Location Tested BP Systolic BP Type 91 L arm 153 sitting 79 R arm 142 sitting Fetus Heart Rate Present Fetus Movement Comments Menstrual History Last Menstrual Date Menses Monthly On Bcp Conception Prior Menses Frequency Hcg Plus Date Menarche Onset Age 0212/11/2024 true Delivery Information Delivery Date Delivery Type Labor Anesthesia Weeks Gestation Incision Type Labor Labor Length Hrs Delivered By Post Complications Tubal Sterilization Discharge Date Comments 5 Induce d 39 false Discharge Information Feeding Method Contraceptive Method Maternal HG B and HCT Levels Bottle
--- OUTSIDE RECORDS SUMMARY | 2025-09-16 17:50 | XMS_ITS | Continuity of Care Document ---
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 Patient InstructionsNo instructions recorded. Reason for Referral None Reported. Results Created Date Observation Date Name Description Value Unit Range Abnormal Flag Note LastModifiedBy Organization Detail LastModifiedTime 03/06/2003/06/2025 [UNIT Y] ANEUP LOIDY NIPT fraction 5.7% normal Not Available Medina Mcbride[address], [place], [address], 03/06/2025 03:58:26 03/06/20 25 03/06/2025 [UNIT Y] ANEUP LOIDY NIPT sex chromosome aneuploidy NOT DETECT ED normal Not Available [facility] [address], [place], [address], 03/06/2025 03:58:26 03/06/20 25 03/06/2025 [UNIT Y] ANEUP LOIDY NIPT monosomy X LOW RISK <1 in 10,000 normal Not Available [facility] [address], [place], [address], 03/06/2025 03:58:26 03/06/20 25 03/06/2025 [UNIT Y] ANEUP LOIDY NIPT trisomy 13 LOW RISK <1 in 10,000 normal Not Available [facility] [address], [place], [address], 03/06/2025 03:58:26 03/06/20 25 03/06/2025 [UNIT Y] ANEUP LOIDY NIPT trisomy 18 LOW RISK <1 in 10,000 normal Not Available [facility] [address], [place], [address], 03/06/2025 03:58:26 03/06/20 25 03/06/2025 [UNIT Y] ANEUP LOIDY NIPT trisomy 21 LOW RISK <1 in 10,000 normal Not Available [facility] [address], [place], [address], 03/06/2025 03:58:26 03/06/20 25 03/06/2025 [UNIT Y] ANEUP LOIDY NIPT sex FEMALE normal Not Available [facility] [address], [place], [address], 03/06/2025 03:58:26 03/06/20 25 03/06/2025 [UNIT Y] ANEUP LOIDY NIPT gestation SINGLE TON normal Not Available [facility] [address], [place], [address], 03/06/2025 03:58:26 03/06/20 25 03/06/2025 [UNIT Y] ANEUP KIANA NIPT for detailed report, see pdf See PDF normal Not Available [facility] [address], [place], [address], 03/06/2025 03:58:26 03/02/20 25 03/02/2025 CULTU RE: URINE result report SEE RESULT S BELOW Test: Cultu re: Urine Speci men Sourc e: Urine - Clean Catch Speci men Type: Urine Speci men Date: 1455 Resul t Date: 2138 Resul t Statu s: Final resul t Abnor mal: No Resul ting Lab: [facility] [address] [facility] [address] Tel: CULTU RE ----- ----- ----- --- No growt h in 1 day (dete ction level of 10,00 0 colon ies / ml.) Not Available [facility] (Lab) [address] [facility], [place], [address], 03/03/2025 22:42:27 03/12/2003/12/2025 CULTU RE: URINE result report SEE RESULT S BELOW Test: Cultu re: Urine Speci men Sourc e: Urine - Clean Catch Speci men Type: Urine Speci men Date: 2024 1600 Resul t Date: 2024 0610 Resul t Statu s: Final resul t Abnor mal: No Resul ting Lab: [facility] [address] [facility] [address] Tel: CULTU RE ----- ----- ----- --- No growt h in 1 day (dete ction level of 10,00 0 colon ies / ml.) Not Available [facility] (Lab) [address] [facility], [place], [address], 03/14/2025 07:15:03 03/12/20 25 03/12/2025 urina lysis , dipst ick Leukocytes ++ Not Available [address], [place], [address], 03/12/2025 16:45:06 03/12/20 25 03/12/2025 urina lysis , dipst ick Protein + Not Available Connell [address], [place], [address], 03/12/2025 16:45:06 03/12/20 25 03/12/2025 urina lysis , dipst ick pH 5 Not Available [address], [place], [address], 03/12/2025 16:45:06 03/12/20 25 03/12/2025 urina lysis , dipst ick Blood trace Not Available [address], [place], [address], 03/12/2025 16:45:06 03/12/20 25 03/12/2025 urina lysis , dipst ick Specific Wilmot 1.015 Not Available [facility] [address], [place], [address], 03/12/2025 16:45:06 03/12/20 25 03/12/2025 urina lysis , dipst ick Ketone +++ Not Available Connell [address], [place], [address], 03/12/2025 16:45:06 03/31/20 25 03/31/2025 TSH, REFLE X FREE T4 TSH 0.42 uIU/m L 0.30-5 .33 Not Available [facility] (Lab) [address], [place], [address], 04/01/2025 03:05:12 03/31/20 25 03/31/2025 CULTU RE: URINE result report SEE RESULT S BELOW Test: Cultu re: Urine Speci men Sourc e: Urine Voide d Speci men Type: Urine Speci men Date: 1710 Resul t Date: 2256 Resul t Statu s: Final resul t Abnor mal: No Resul ting Lab: [facility] [address] [facility] [address] Tel: CULTU RE ----- ----- ----- --- Cultu re resul t (>=3 organ isms prese nt) indic ates possi ble conta minat ion. Repea t cultu re if sympt oms indic ate. Not Available [facility] (Lab) [address], [place], [address], 04/01/2025 23:59:19 03/31/20 25 03/31/2025 urina lysis , dipst ick Leukocytes +1 Not Available [facility] domingo [address], [place], [address], 03/31/2025 09:23:13 03/31/20 25 03/31/2025 urina lysis , dipst ick Nitrite normal Not Available [address], [place], [address], 03/31/2025 09:23:13 03/31/20 25 03/31/2025 urina lysis , dipst ick Urobilinogen normal Not Available [facility] david [address], [place], [address], 03/31/2025 09:23:13 03/31/20 25 03/31/2025 urina lysis , dipst ick Protein trace Not Available [address], [place], [address], 03/31/2025 09:23:13 03/31/20 25 03/31/2025 urina lysis , dipst ick pH 5 Not Available [address], [place], [address], 03/31/2025 09:23:13 03/31/20 25 03/31/2025 urina lysis , dipst ick Specific Wilmot 1.020 Not Available [facility] nita [address], [place], [address], 03/31/2025 09:23:13 03/31/20 25 03/31/2025 urina lysis , dipst ick Ketone normal Not Available [address], [place], [address], 03/31/2025 09:23:13 03/31/20 25 03/31/2025 urina lysis , dipst ick Bilirubin normal Not Available [facility] anna [address], [place], [address], 03/31/2025 09:23:13 03/31/20 25 03/31/2025 urina lysis , dipst ick Glucose normal Not Available [address], [place], [address], 03/31/2025 09:23:13 03/31/20 25 03/31/2025 urina lysis , dipst ick Appearance normal Not Available [facility] [address], [place], [address], 03/31/2025 09:23:13 03/31/20 25 03/31/2025 urina lysis , dipst ick Color normal Not Available [address], [place], [address], 03/31/2025 09:23:13 04/01/20 25 04/01/2025 WOMEN 'S HEALT H SWAB PLUS, DENIS bacterial vaginosis (bv), tma Negati ve negati ve Not Available [facility] (Lab) [address], [place], [address], 04/02/2025 14:08:45 04/01/20 04/01/2025 [facility] DENIS mekih species, tma Negati ve negati ve Not Available [facility] (Lab) [address] [place], [address], 04/02/2025 14:08:45 04/01/20 25 04/01/2025 [facility], DENIS mekhi glabrata, tma Negati ve negati ve Not Available [facility] (Lab) [address] [place], [address], 04/02/2025 14:08:45 04/01/20 25 04/01/2025 [facility], DENIS trichomonas vaginalis, tma Negati ve negati ve Not Available [facility] (Lab) [address] [place], [address], 04/02/2025 14:08:45 04/01/20 25 04/01/2025 [facility], DENIS chlamydia trachomatis, PCR Negati ve negati ve Not Available [facility] (Lab) [address] [place], [address], 04/02/2025 14:08:45 04/01/20 25 04/01/2025 [facility], DENIS neisseria gonorrhoeae, [...] ded in this panel . Not Available [facility] (Lab) [address] [place], [address], 04/02/2025 14:08:45 04/22/2004/22/2025 CULTU RE: URINE result report SEE RESULT S BELOW Test: Cultu re: Urine Speci men Sourc e: Urine Voide d Speci men Type: Urine Speci men Date: 2024 1314 Resul t Date: 2024 0322 Resul t Statu s: Final resul t Abnor mal: No Resul ting Lab: [facility] [address] [facility] [address] Tel: CULTU RE ----- ----- ----- --- No growt h in 1 day (dete ction level of 10,00 0 colon ies / ml.) Not Available [facility] (Lab) [address] [place], [address], 04/24/2025 04:28:01 04/22/2004/22/2025 urina lysis , dipst ick Leukocytes + Not Available [facility] [address], [place], [address], 04/22/2025 10:01:51 04/22/2004/22/2025 urina lysis , dipst ick Protein + Not Available [address], [place], [address], 04/22/2025 10:01:51 04/22/20 25 04/22/2025 urina lysis , dipst ick pH 8 Not Available [address], [place], [address], 04/22/2025 10:01:51 04/22/20 25 04/22/2025 urina lysis , dipst ick Blood + Not Available [address], [place], [address], 04/22/2025 10:01:51 04/22/20 25 04/22/2025 urina lysis , dipst ick Specific Wilmot 1.010 Not Available [facility] [address], [place], [address], 04/22/2025 10:01:51 04/22/20 25 04/22/2025 urina lysis , dipst ick Ketone + Not Available [address], [place], [address], 04/22/2025 10:01:51 06/23/20 25 06/23/2025 HEMAT OCRIT (HCT) HCT 35.6 % (based on docume nted legal sex) 34.0-4 5.0 Not Available [facility] (Lab) [address] [facility], [place], [address], 06/24/2025 11:45:32 06/23/20 25 06/23/2025 HEMOG LOBIN (HGB) HGB 11.1 g/dL (based on docume nted legal sex) 11.6-1 5.4 low Not Available [facility] (Lab) [address] [facility], [place], [address], 06/24/2025 11:45:32 06/23/20 25 06/23/2025 GTT - GESTA ROLAND L SCREE N, ACOG OB glucose, 1 hour screen 180 mg/dL 70-135 high Not Available [facility] (Lab) [address] [place], [address], 06/24/2025 11:45:33 06/23/20 25 06/23/2025 HIV 1/2 ANTIG EN/AN TIBOD Y, REFLE X CONFI RMATI ON HIV antigen/anti body Nonrea ctive nonrea ctive HIV-1 antig en and HIV-1 /HIV- 2 antib odies were not detec greg. No labor atory evide nce of HIV infec tion. Not Available [facility] (Lab) [address] [facility], [place], [address], 06/24/2025 11:45:33 06/23/20 25 06/23/2025 RPR SCREE N, REFLE X TITER /CONF IRMAT ION RPR qualitative Nonrea ctive nonrea ctive Not Available [facility] (Lab) [address] [facility], [place], [address], 06/24/2025 11:45:34 03/02/20 25 03/02/2025 US, obste tric, nucha l trans lucen cy No observ ation record ed. [email or web address] [address], [place], [address], 03/02/2025 13:35:30 03/02/20 25 03/02/2025 US, obste tric, nucha l trans lucen cy No observ ation record ed. [email or web address] [address], [place], [address], 03/03/2025 14:08:39 03/08/20 25 03/08/2025 US, obste tric, 1st trime ster No observ ation record ed. [email or web address] [address], [place], [address], 03/08/2025 12:22:22 03/08/20 25 03/08/2025 US, obste tric, 1st trime ster No observ ation record ed. [email or web address] [address], [place], [address], 03/10/2025 15:03:13 04/01/20 25 03/24/2025 qamar r monit or No observ ation record ed. [address] [facility] [address], [place], [address], 04/08/2025 12:36:45 04/01/20 25 03/22/2025 qamar r monit or No observ ation record ed. [address] (Pulmonary) [address] [facility] [address], [place], [address], 04/06/2025 08:59:34 04/20/20 25 04/20/2025 US, obste tric, limit ed No observ ation record ed. [email or web address] [address], [place], [address], 04/20/2025 17:39:30 04/20/20 25 04/20/2025 US, obste tric, follo w-up No observ ation record ed. [email or web address] [address]sha [address], [place], [address], 04/23/2025 08:32:54 04/28/20 25 04/28/2025 US, obste tric, 2nd or 3rd trime ster No observ ation record ed. [email or web address] [address], [place], [address], 04/28/2025 17:48:42 04/28/20 25 04/28/2025 US, obste tric, 2nd or 3rd trime ster No observ ation record ed. [email or web address] [address], [place], [address], 05/04/2025 22:16:11 05/07/20 25 05/07/2025 non-s tress test No observ ation record ed. [address] [facility] [address] [facility], [place], [address], 05/28/2025 13:33:54 05/21/20 25 05/21/2025 CT, head + brain , w/o contr ast No observ ation record ed. [email or web address] [facility] [address], [place], [address], 05/24/2025 13:48:57 05/28/20 25 05/28/2025 US, obste tric, follo w-up No observ ation record ed. [facility] [address], [place], [address], 05/28/2025 17:32:34 05/28/20 25 05/28/2025 US, obste tric, follo w-up No observ ation record ed. [email or web address] Esha [address], [place], [address], 06/01/2025 15:13:13 06/08/20 25 06/07/2025 US, obste tric, follo w-up No observ ation record ed. [email or web address] [facility] [address] [facility], [place], [address], 06/15/2025 10:53:46 07/07/20 25 07/07/2025 US, obste tric, follo w-up No observ ation record ed. [email or web address] [address], [place], [address], 07/07/2025 13:18:01 07/07/20 25 07/07/2025 US, obste tric, follo w-up No observ ation record ed. [email or web address] [address], [place], [address], 07/07/2025 11:29:37 08/04/20 25 08/04/2025 US, obste tric, follo w-up No observ ation record ed. [email or web address] [address], [place], [address], 08/04/2025 15:08:50 08/04/2008/04/2025 US, obste tric, follo w-up No observ ation record ed. [email or web address] [address], [place], [address], 08/06/2025 10:41:50 08/11/2008/11/2025 non-s tress test No observ ation record ed. [email or web address] [address], [place], [address], 08/11/2025 17:37:52 08/11/20 non-s tress test No observ ation record ed. [email or web address] [address], [place], [address], 08/11/2025 17:38:11 08/15/2008/15/2025 non-s tress test No observ ation record ed. [address], [place], [address], 08/21/2025 10:18:57 08/15/2008/15/2025 US, obste tric, bioph ysica l profi le No observ ation record ed. [address] [facility], [place], [address], 08/17/2025 10:50:53 08/18/2008/18/2025 US, obste tric, bioph ysica l profi le + non-s tress test No observ ation record ed. [email or web address] Connell [address], [place], [address], 08/18/2025 10:21:39 08/18/20 25 08/18/2025 US, obste tric, bioph ysica l profi le + non-s tress test No observ ation record ed. [email or web address] [address]sha [address], [place], [address], 08/18/2025 10:35:44 08/18/20 25 08/18/2025 non-s tress test No observ ation record ed. [address], [place], [address], 08/18/2025 17:34:03 08/18/20 non-s tress test No observ ation record ed. [address], [place], [address], 08/18/2025 16:06:09 08/25/2008/25/2025 US, obste tric, bioph ysica l profi le + non-s tress test No observ ation record ed. [email or web address] Con[address], [place], [address], 08/25/2025 18:52:06 08/25/2008/25/2025 US, obste tric, follo w-up No observ ation record ed. joelle Aguirree [address], [place], [address], 08/25/2025 15:47:28 08/25/2008/25/2025 non-s tress test No observ ation record ed. [address], [place], [address], 08/25/2025 18:12:15 08/25/20 non-s tress test No observ ation record ed. [address], [place], [address], 08/25/2025 17:21:19 08/30/20 25 08/30/2025 non-s tress test No observ ation record ed. [address], [place], [address], 09/15/2025 15:26:49 09/01/20 25 09/01/2025 non-s tress test No observ ation record ed. [address] [address], [place], [address], 09/13/2025 11:32:22 09/01/20 25 09/01/2025 US, obste tric No observ ation record ed. [address], [address], 09/02/2025 15:56:01 09/01/20 25 09/01/2025 non-s tress test No observ ation record ed. [address] [address], [place], [address], 09/02/2025 14:32:38 09/16/20 25 09/16/2025 imagi ng/di agnos tic resul t No observ ation record ed. [address] [address], [place], [address], 09/16/2025 18:07:05 Result Notes None recorded. Problems Name Problem SNOMED Code Status Onset Date Resolution Date Notes Provider Name and Address Organization Details Recorded Time Hypereme sis 304771839 Completed phenerga n now prn [facility] 16:43:51 Anxiety in pregnanc y 3442354606 9109 Completed will continue to monitor Asia Luis ramos [facility] 2 16:43:51 Past pregnanc y history of gestatio nal diabetes mellitus 300289952 Completed Early 1 hr GTT @ 20wks 11/03 APPT Asia arias [facility] 2 16:43:51 Spinal muscular atrophy 8126970 Completed Carrier - Not in contact with FOB. Asia ramos [facility] 2 16:43:51 Anxiety 48494326 Completed prozac Karina ramos [facility] 4 11:00:46 Nausea 313344788 Completed d/c zofran pump 11/08 per pt request Karina ramos [facility] 4 11:00:46 Postpart um hemorrha ge [id number] Completed 2017 with d&c Karina ramos, [facility] 4 11:00:46 Normal pregnanc y in multigra jessy 1508308548 06945 Completed 201907/05/2021 Encounte r for supervis ion of other normal pregnanc y, 3rd trimeste r;Record ed Elsewher e: No Locat ion: [facility] S ource: EHR Tobacco Stripper Hand yvrose: N Dennis ce ID: [id number] Gigi lable Time: 10:45:00 AM Karina Burroughs [facility] 10:15:27 Gestatio n period, 37 weeks 99816622 Completed 201907/05/2021 37 weeks gestatio n of pregnanc y;Record ed Elsewher e: No Locat ion: [facility] S ource: EHR Tobacco Stripper Hand yvrose: N Dennis ce ID: [id number] Gigi lable Time: 09:00:00 AM Karina ramos [facility] [address] 10:15:[address] Concept Completed 201907/05/2021 Matern care for abnlt fetl hrt rate or rhym, 3rd tri, unsp;Rec orded Elsewher e: No Locat ion: [facility] S ource: EHR Tobacco Stripper Hand yvrose: N Dennis ce ID: [id number] Gigi lable Time: 08:45:00 AM Karina Burroughs [facility] 1 10:15:29 Gestatio nal diabetes mellitus 64402176 Completed 201907/05/2021 Gestatio nal diabetes mellitus in pregnanc y, diet controll ed;Recor ded Elsewher e: No Locat ion: [facility] S ource: EHR Tobacco Stripper Hand yvrose: N Natalyati ce ID: [id number] Gigi lable Time: 11:45:00 AM Karina Burroughs rachel, [facility] 10:15:25 Gestatio n period, 38 weeks 69030370 Completed 201907/05/2021 38 weeks gestatio n of pregnanc y;Record ed Elsewher e: No Locat ion: [facility] S ource: EHR Tobacco Stripper Hand yvrose: N Natalyati ce ID: 0001 Gigi lable Time: 11:30:00 AM Karina ramos, [facility] 10:15:13 Amenorrh ea 45036706 Completed 202007/10/2021 Tammi Jones null, [facility] 13:08:35 Pregnanc y 59180706 Completed 202003/29/2022 Emma Dykes [facility], [facility] 5 12:28:48 Pregnanc y 66049783 Completed 202304/22/2024 Emma Dykes [facility], [facility] 5 12:28:48 Headache 10500444 Active 2023 Karina Burroughs [facility], [facility] 5 16:19:28 Pregnanc y 41359574 Completed 202309/14/2025 Emma Dykes [facility], [facility] 5 12:28:48 Uncompli cated moderate persiste nt asthma 838257222 Completed 2024 julio Bradley MD [address], [place], [address], [facility] 5 13:08:36 Anxiety 12120972 Completed 2024 sertrali ne started 03/02/25 changed to prozac 10 on Shawn Bradley MD [address], [place], [address], [facility] 5 17:05:48 Nausea and vomiting 37349539 Completed 2024 Shawn Bradley MD [address], [place], [address], [facility] 13:20:27 Placenta circumva llata 8728553 Completed 2024 32wk growth Ryann ramos, [facility] 5 09:44:35 Frequent headache 639032578 Completed 2024 transpor t to [facility] 05/21, discharg e 05/23 MFM referral [...] more than 2-3 times a week. Ryann ramos, [facility] 5 10:55:26 Abnormal placenta affectin g manageme nt of mother 67572677 Completed 2024 [facility] serial growth Ryann ramos, [facility] 5 10:46:25 Iron deficien cy anemia 55304333 Completed 2024 [facility] tx venofer 200mg x1 HGB 10.6 [facility] 15:21:25 Gestatio nal diabetes mellitus 09007344 Completed 2024 checking bs QID - ruled in GDM Referral fax[facility] to [facility] 07[facility]07 [facility] 14:36:52 Notes:Order faxed to [facility] access 08/10 for PICC line, and home health already caring for ptHilda Vladimir RN at [phone] Problem Notes None recorded. Procedures Surgical History Date Name Laterality Status Provider Name and Address Organization Details Recorded Time 025 SALPINGECTOMY, LAPAROSCOPIC (SURG) completed Not Available Replaced by [facility] 09/06/2025 11:19:17 025 Date of Last Pap Smear completed Karina Burroughs [facility] 01/28/2025 11:19:42 024 Nexplanon Removal completed Shawn Bradley MD [address], [place], [address], [facility] 08/05/2024 15:09:58 024 Control Implant Insertion completed Anju Mcnamara CNM [address], [place], [address], [facility] 05/08/2024 17:59:34 024 cholecystectomy completed Karinasofia Burroughs [facility] 03/31/2025 09:18:57 018 Dilation and Curettage completed Karina Burroughs [facility] 07/05/2021 10:17:50 Imaging Results None recorded. Procedure Notes None recorded. Medical Equipment None Reported. Allergies Allergen ID Allergen Name Allergen Category Reaction Reaction Severity Criticality Documentation Date Start Date Code Code System Note Provider Name and Address Organization Details Recorded Time 58718 terbutali ne medicatio n anaphylax is Not available Not available 01/27/20252021 95513 RxNorm Karina Burroughs [facility] 16:19:27 55451 amoxicill in medicatio n Not available Not available Not available 09/10/2025 723 RxNorm Not Available gene - External Data Service - prod 16:39:37 08200 terbinafi ne medicatio n anaphylax is Not available [facility] 09/10/20252024 24513 RxNorm Not Available gene - External Data [...] mg-potass ium clavulana te 125 mg tablet 12/06 /2023 completed Not Available Not Available Not Available [...] Prescrib ed Elsewher e: Yes [facility] odify By: [email or web address] Encounte r DateTime : [...] n (supplie d by office) insert lot [id number] Exp 01/2026 Not Available Not Available Not Available 28 mg iron-800 mcg tablet 07/05 completed Prescrib ed Elsewher e: Yes Loca tion: Jaelyn castillo [facility] odify By: [email or web address] Encounte r DateTime : 01/14/20 10:45:00 AM Not Available Not Available Not Available lidocaine 5 % topical ointment APPLY OINTMENT EXTERNAL LY TO RIBS THREE TIMES DAILY NEEDED 01/14 completed Not Available Not Available Not Available [employer]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 06/23/2025 14:17:59 Social History Question Answer Notes LastModified by Organizat ion Details LastModified Time Tobacco Smoking Status Former Smoker Karina ramos, [facility] 07/05/2021 09:06:21 If You Are , What Was Your Level Of Alcohol Consumption Prior To ? Occasional [email or web address] Information not available 03/31/2025 Are You Blind Or Do You Have Difficulty Seeing? No [email or web address] Information not available 07/05/2021 What Is Your Level Of Caffeine Consumption? Heavy [email or web address] Information not available 07/05/2021 In The 14 [...] To Be High Risk For COVID-19? No [email or web address] Information not available 07/05/2021 Are You Deaf Or Do You Have Serious Difficulty Hearing? No [email or web address] Information not available 07/05/2021 What Type Of Diet Are You Following? REGULAR [email or web address] Information not available 07/05/2021 Which Illicit Or Recreational Drugs Have You Used? Marijuana Information not available 07/05/2021 Have You Ever Been Counseled For Unhealthy Alcohol Use? No [email or web address] Information not available 07/05/2021 Do You Use Your Seat Belt Or Car Seat Routinely? Yes [email or web address] Information not available 07/05/2021 Do You Have Smoke And Carbon Monoxide Detectors In Your Home? Yes Information not available 07/05/2021 Do You Use Sunscreen Routinely? Yes [email or web address] Information not available 07/05/2021 Has Tobacco Cessation Counseling Been Provided? No [email or web address] Information not available 07/05/2021 Have You Used IV Drugs? No [email or web address] Information not available 07/05/2021 Do You Have Difficulty Walking Or Climbing Stairs? No [email or web address] Information not available 12/06/2021 Sex: Unknown Functional Status Question Answer Note LastModified by Organizat ion Details LastModified Time Do you use any illicit or recreational drugs? Yes [email or web address] Information not available 07/05/2021 Do you or have you ever used any other forms of tobacco or nicotine? Yes [email or web address] Information not available 07/05/2021 What is your level of alcohol consumption? None [email or web address] Information not available 03/31/2025 Do you or have you ever used smokeless tobacco? Never used smokeless tobacco [email or web address] Information not available 07/05/2021 Are you able to walk independently without assistance or assistive devices? YESWOREST [email or web address] Information not available 07/05/2021 Are you able to care for yourself independently? Yes [email or web address] Information not available 12/06/2021 Do you have difficulty dressing, bathing, grooming, or toileting? No [email or web address] Information not available 12/06/2021 Do you or have you ever used e-cigarettes or vape? Current user of electronic cigarettes [email or web address] Information not available 07/05/2021 What is your exercise level? Occasional [email or web address] Information not available 07/05/2021 Mental Status Question Answer Note LastModified by Organization D etails LastModified Time Do you feel stressed (tense, restless, nervous, or anxious, or unable to sleep at night)? [id number] [email or web address] Information not available 07/05/2021 Family History Relationship Description Onset Age of this Age Resolved Age Notes LastModified by Organization Details LastModified Time Father No current problems or disability [email or web address] Not available 05/2021 09:06:31 Mother No current problems or disability [email or web address] Not available 05/2021 09:06:31 Medical History Condition [...] ICD10 Code Diagnosis IMO Codes Diagnosis Note [id number] Shawn Bradley MD [facility] [address],[place] [address] 05/28/2025 13:46:14 05/28/2025 14:40:01 Abnormal placenta affecting management of mother 99904192 O43.192 Z3A.[address] 71838[id number] [facility] [address] [place] [address] 05/28/2025 13:46:33 05/28/2025 15:52:47 Gestation period, 24 weeks [id number] Z3A.24 [id number] cont pnv [id number] Shawn Bradley MD [facility] [address],[place] [address] 06/23/2025 13:43:13 06/25/2025 17:52:[id number] [facility] [address] [place] [address] 06/23/2025 13:43:28 06/23/2025 15:58:03 Heartburn 24910496 R12 42478 Gestation period, 28 weeks 90099943 Z3A.28 [id number] Health Concerns Section Related Observation LastModified by Organization Detai ls LastModified Time None Recorded Concern Status LastModified by Organization Details LastModified Time None Recorded Payers Encounter Date Sequence Insurance Name Policy Number Policy Roberts Covered Member ID Roberts Member ID Guarantor Name 06/23/2025 1 [facility] (MEDICAID HMO) [id number] Yuni Mejia [id number] Yuni Mejia Notes Date Note Type Note Provider Name and Address Organization Details Recorded Time 06/23/2025 text/html Generic HPI TemplateReported by Patient Anju Mcnamara, KRISTEN [address], [place], [address], [facility] 06/23/2025 15:46:54 OBGyn Episode Ob Episode Information Episode Created Date Number of Fetuses Patient Bloodtype Patient rh Status Prepregnancy Weight lbs Domestic Partner Domestic Partner Phone Father Name Chief Investigator Status 03/02/20 25 1 B Positive 164 CLOSED Fetus Data First Name Last Name Admitted to NICU Weight (g) Sex Living Outcome Pediatric Complications Fetus ID Race Codes Race Delivery Type [facility] false 4025.62 9 F true Full Term [id number] Vaginal Delivery Problems Problem Notes SDH form completed 5GI consult Tachycardia Holter monitor 72 order- pt sent back on 03-27-25 Cardiology referral faxed per Dr Martínez office calling pt 04/21 to schedule consult scheduled 05/11 11:15AM Problem Name Start Date End Date Resolution Snomed Code Not e Uncomplicated moderate persistent asthma 03/02/2025 801302030 albuterol prn Abnormal placenta affecting management of mother 05/04/2025 19915817 [facility] serial grow th us Iron deficiency anemia 05/25/2025 59242277 [facility] tx [place] 200mg x1 HGB 10.6 Nausea and vomiting 03/02/2025 18651334 Anxiety 03/02/2025 73189539 sertralin e started 03/02/25 changed to prozac 10 on Gestational diabetes mellitus 07/08/2025 74117336 checking bs QID - ruled in GDM Referral faxed to [facility] 07/07 Frequent headache 05/03/2025 [id number] [place] to [facility] 05/21, discharge 05/23 MFM referral faxed 05/24 SS Neurology consult pending per KAJAL Pittman [facility]- Neuro [facility] unable to see pt due to insurance 05/25[facility] 07/05/25 Level US & Consult (see [facility] consult zayas recommendations ) regimen prn Imitrex 50mg for acute migraine, vitamin B2 (Riboflavin) 400mg, Coenzyme q10 300mg and magnesium oxide 200 to 600mg daily. minimize use of Excedrin or Tylenol to no more than 2-3 times a week. 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/2025 6605418 32wk growth us Jun Calculation Initial Jun [...] Weight in lbs Pre/Post Dialysis Refused Weight 158.477103474537 BP Diastolic BP Location Tested BP Systolic [...] Weight in lbs Pre/Post Dialysis Refused Weight 158.178942869642 BP Diastolic BP Location Tested BP Systolic [...] Weight in lbs Pre/Post Dialysis Refused Weight 162.227351080719 BP Diastolic BP Location Tested BP Systolic BP Type 78 123 Fetus Heart Rate Present A 148 Fetus Movement A Yes Comments Patient is having having ronny n, cramping and vaginal discharge. went to ed exam done cultures and rx sent, ?FM, await environmental monitoring technician results rfilled zofran, precautions and education f/u [...] Type Weight in lbs Pre/Post Dialysis Refused 168.898542275548 BP Diastolic BP Location Tested BP Systolic [...] Type Weight in lbs Pre/Post Dialysis Refused 169.422785457727 BP Diastolic BP Location Tested BP Systolic [...] Weight in lbs Pre/Post Dialysis Refused Weight 175.118331116274 BP Diastolic BP Location Tested BP Systolic [...] Weight in lbs Pre/Post Dialysis Refused Weight 182.975121723918 BP Diastolic BP Location Tested BP Systolic [...] Weight in lbs Pre/Post Dialysis Refused Weight 181.599120966767 BP Diastolic BP Location Tested BP Systolic BP Type 73 L arm 131 sitting Fetus Heart Rate Present Fetus Movement A Yes Comments viral URI testied neg at urg ent care, nausea resolved, efw 68%, +FM plan education and precautions f/u 2 weeks diagnosed GDM, plan director foundation, gave list reviewed protein vs carb Flowsheet Date 07/21/2025 Gibson Score Blood Edema Fundus Height Fundus Units Glucose Ketones Leukocytes Nitrite Labor Signs Protein Cervic Dilation Cervic Effacement Cervic Station Type Weight in lbs Pre/Post Dialysis Refused Weight 181.079296628766 BP Diastolic BP Location Tested BP Systolic BP Type 78 L arm 127 sitting Fetus Heart Rate Present A 150 Fetus Movement A Yes Comments rpt urine culture +FM review ed blood sugars, meets with director foundation today, precautions and education f/u 2 weeks [...] Weight in lbs Pre/Post Dialysis Refused Weight 181.437637553147 BP Diastolic BP Location Tested BP Systolic [...] Weight in lbs Pre/Post Dialysis Refused Weight 183.136849742369 BP Diastolic BP Location Tested BP Systolic [...] Type Weight in lbs Pre/Post Dialysis Refused 184.580470140283 BP Diastolic BP Location Tested BP Systolic [...] Type Weight in lbs Pre/Post Dialysis Refused 184.736059370084 BP Diastolic BP Location Tested BP Systolic [...] Type Weight in lbs Pre/Post Dialysis Refused 184.482844279123 BP Diastolic BP Location Tested BP Systolic [...] Weight in lbs Pre/Post Dialysis Refused Weight 184.542069686100 BP Diastolic BP Location Tested BP Systolic [...] Weight in lbs Pre/Post Dialysis Refused Weight 164.097082036546 BP Diastolic BP Location Tested BP Systolic [...]
--- OUTSIDE RECORDS SUMMARY | 2025-09-16 17:50 | XMS_ITS ---
Author Organization Unknown Address [address] [place] [phone] Phone Care Team Providers Care Senior Project Engineer Name Role Phone LADONNA SCHUMACHER Attending Unavailable SEAN Balderrama Primary Unavailable Immunization [...] CVX HPV9 01/05/2017 Completed [address] BRAIN WO CONTRAST - Compl eted: 07/17/2024 09:05 LOINC: EXAM DESCRIPTION: CT BRAIN WO CONTRAST REASON FOR STUDY: Headache x five days no trauma Duration: five days TECHNIQUE: Axial images acquired through the brain without intravenous contrast. Images stored on PACS. Automated exposure control was used as a dose optimization technique for this examination. COMPARISON: No comparison. FINDINGS: BRAIN: No hemorrhage, edema or mass effect. No recent infarct. Normal white matter. EXTRA-AXIAL SPACES: No fluid collections. No masses. CALVARIUM: No fracture. SINUSES/MASTOIDS: No fluid or mucosal thickening. ORBITS: No significant abnormality. OTHER: No other significant abnormality. IMPRESSION: No acute intracranial findings. If symptoms warrant, consider follow-up brain MRI. THIS IS AN ELECTRONICALLY VERIFIED FINAL REPORT 07/17/2024 9:27 AM - Electronically signed by Quang Decker M.D. 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
--- OUTSIDE RECORDS SUMMARY | 2025-09-16 17:50 | XMS_ITS | Clinical Summary ---
Author Organization [facility] Address [address] [place] [address] Care Team Providers Care Supervisor Accounts Receivable Name Role Phone Steph Hightower MD Unavailable Tanner Paige MD Primary Care Provider Janell Celaya APNP Unavailable [phone] Allergies Active Allergy Reactions Criticality Noted Date Comments Amoxicillin Other (see comment) 07/16/2024 Irregular heart rate Terbutaline Anaphylaxis High 07/19/2022 Medications ondansetron (ZOFRAN-ODT) 4 MG disintegrating tablet Take 1 tablet (4 mg total) by mouth every 8 (eight) hours as needed for Nausea. 20 tablet 5 Active coenzyme Q-10 (CO Q-10) 100 MG capsule Take 3 capsules (300 mg total) by mouth daily. 5 Active Docusate Sodium 100 MG Tab Take 1 tablet by mouth daily as needed (constipatio n). 5 Active budesonide-formote rol (SYMBICORT) 80-4.5 MCG/ACT inhaler Inhale 2 puffs into the lungs 2 (two) times daily. Active insulin NPH (HUMULIN N) 100 UNIT/ML injection Inject 7 Units into the skin nightly at bedtime. Active calcium carbonate (TUMS) 500 MG chewable tablet Chew 1 tablet (500 mg total) by mouth daily as needed for Heartburn. Active HYDROcodone-acetam inophen (NORCO) 5-325 MG tablet Take 1 tablet by mouth every 6 (six) hours as needed. 5 Active nitrofurantoin, macrocrystal-monoh ydrate, (MACROBID) 100 MG capsule Take 1 capsule (100 mg total) by mouth 2 (two) times daily for 5 days. 10 capsule 5 09/17/20 25 Active cephALEXin (KEFLEX) 500 MG capsule Take 1 capsule (500 mg total) by mouth 3 (three) times daily for 5 days. 15 capsule 5 08/19/20 25 famotidine (PEPCID) 20 MG tablet Take 1 tablet (20 mg total) by mouth 2 (two) times daily for 10 days. 20 tablet 5 09/08/20 25 Active Problems Problem Noted Date Diagnosed Date 05/13/2024 Headache 05/13/2024 Encounters Date Type Department Care Team Description 09/12/2025 12:49 PM PHYSICIAN LIAISON - 09/12/2025 3:12 PM [facility] Emergency [facility] [address] [place] [address] [place] [address] Emy Irene MD Chest Pain Discharge Disposition: Home or Self Care (Routine Discharge) 09/12/2025 9:10 AM PHYSICIAN LIAISON - 09/12/2025 11:05 AM [facility] Emergency [facility] [address] [place] [address] [place] [address] Emy Irene MD Headache; Vaginal Bleeding (Post-) Discharge Disposition: Home or Self Care (Routine Discharge) 09/12/2025 Travel 08/29/2025 7:07 PM PHYSICIAN LIAISON - 08/29/2025 9:39 PM [facility] Hospital Encounter [facility] [address] [place] [address] [place] [address] Lester Valle MD (Headache) Discharge Disposition: Home or Self Care (Routine Discharge) 08/29/2025 Travel 08/18/2025 7:48 PM CDT - 08/18/2025 9:22 PM [facility] Emergency [facility] [address] [place] [address] [place] [address] Nacho Breen MD Chest Pain Discharge Disposition: Home or Self Care (Routine Discharge) 08/18/2025 Travel 08/15/2025 10:59 AM CDT - 08/15/2025 1:56 PM CDT Hospital Encounter [facility] [address] [place] [address] [place] [address] Yeni Pinto MD Discharge Disposition: Home or Self Care (Routine Discharge) 08/14/2025 11:00 AM CDT - 08/14/2025 11:59 AM CDT Emergency [facility] [address] [place] [address] [place] [address] Naldo Cadet DO Sore Throat Discharge Disposition: Home or Self Care (Routine Discharge) 08/14/2025 Travel 07/28/2025 Telephone [facility] [address] [place] [address] [place] [address] Марина Grace MD Problem (Pt called stating [...] - 07/23/2025 1:47 PM CDT Hospital Encounter [facility] [address] [place] [address] [place] [address] Марина Grace MD Discharge Disposition: Home or Self Care (Routine Discharge) 07/04/2025 12:02 PM CDT - 07/04/2025 1:21 PM CDT Emergency [facility] [address] [place] [address] [place] [address] Naldo Cadet DO Flu Like Symptoms Discharge Disposition: Home or Self Care (Routine Discharge) 07/04/2025 Travel 06/24/2025 10:35 PM CDT - 06/25/2025 12:07 AM CDT Hospital Encounter [facility] [address] [place] [address] [place] [address] Nate Alvarez MD Abdominal Pain Discharge Disposition: Home or Self Care (Routine Discharge) 06/24/2025 Travel 06/20/2025 3:59 PM CDT - 06/20/2025 5:51 PM CDT Hospital Encounter [facility] [address] [place] [address] Lester Valle MD Abdominal Pain Discharge Disposition: Home or Self Care (Routine Discharge) 06/20/2025 Travel from Last 3 Months Family History [...] Recorded Patient Health Questionnaire-2 Score 0 05/13/2024 [facility] [place] of Occupat ional Health - Occupational Stress [...] 08/29/2025 How often do you attend chur or rastafarian services? 1 to 4 times per year 08/29/2025 Do you belong to any clubs o r organizations such as christianity groups, unions, fraternal or athletic groups, or [...] and heating? Not hard at all 08/29/2025 [facility] of Occupat ional Health - [...] any time in the past 12 m [facility], were you homeless or living in a assisted (including now)? No 08/29/2025 B1300 Health Literacy Answer Date Recor ded How often do you need to hav e someone help you when you read instructions, pamphlets, or other written material from your doctor or pharmacy? Never 08/29/[address] [facility] Utilities Answer Date Recorded In the past 12 months has th e electric, gas, oil, or water company threatened to shut off services in your home? No 08/29/2025 Comments No Sex and Gender Information Value Date Recorded Sex Assigned at Female 05/13/2024 1:22 AM CDT Legal Sex Female 8:30 AM CDT Gender Identity Female 05/13/2024 1:22 AM CDT Sexual Orientation Straight 05/13/2024 1: 22 AM CDT Last Filed Vital Signs Vital Sign Reading Time Taken Comments Blood Pressure 152/94 09/12/2025 3:00 PM PHYSICIAN LIAISON Pulse 59 09/12/2025 3:00 PM PHYSICIAN LIAISON Temperature 36.7 C (98 F) 09/12/2025 12:46 PM PHYSICIAN LIAISON Respiratory Rate 15 09/12/2025 3:00 PM PHYSICIAN LIAISON Oxygen Saturation 95% 09/12/2025 3:00 PM PHYSICIAN LIAISON Inhaled Oxygen Concentration - - Weight 77.1 kg (170 lb) 09/12/2025 12:46 PM PHYSICIAN LIAISON Height 165.1 cm (5' 5) 09/12/2025 12:46 PM PHYSICIAN LIAISON Body Mass Index 28.29 09/12/2025 12:46 PM PHYSICIAN LIAISON Plan of Treatment Health Maintenance Due Date [...] Procedure Name Priority Date/Time Associated Diagnosis Comments CTA CHEST PE PROTOCOL STAT 09/12/2025 2:00 PM PHYSICIAN LIAISON PRO-BRAIN NATRIURETIC PEPTIDE Routine 09/12/2025 1:10 PM PHYSICIAN LIAISON BASIC METABOLIC PANEL STAT 09/12/2025 1:10 PM PHYSICIAN LIAISON HC CBC W/O DIFF STAT 09/12/2025 1:10 PM PHYSICIAN LIAISON TROPONIN, QUANT STAT 09/12/2025 1:10 PM PHYSICIAN LIAISON D-DIMER, QUANTITATIVE STAT 09/12/2025 1:10 PM PHYSICIAN LIAISON ECG 12-LEAD STAT 09/12/2025 12:50 PM PHYSICIAN LIAISON ECG 12-LEAD STAT 09/12/2025 10:28 AM PHYSICIAN LIAISON URINALYSIS STAT 09/12/2025 9:56 AM PHYSICIAN LIAISON PROTEIN CREAT RATIO URINE STAT 09/12/2025 9:56 AM PHYSICIAN LIAISON COMPREHENSIVE METABOLIC PANEL STAT 09/12/2025 9:37 AM PHYSICIAN LIAISON HC CBC AUTO W/AUTO DIFF STAT 09/12/2025 9:37 AM PHYSICIAN LIAISON HC COMPREHENSIVE METABOL PANEL STAT 08/29/2025 8:34 PM PHYSICIAN LIAISON Headache HC CBC AUTO W/AUTO DIFF STAT 08/29/2025 8:34 PM PHYSICIAN LIAISON Headache ECG 12-LEAD STAT 08/29/2025 8:26 PM PHYSICIAN LIAISON Headache CORONAVIRUS (COVID-19) ANTIGEN STAT 08/29/2025 8:16 PM PHYSICIAN LIAISON Headache HC RSV AG QL STAT 08/29/2025 8:16 PM PHYSICIAN LIAISON Headache INFLUENZA A & B STAT 08/29/2025 8:16 PM PHYSICIAN LIAISON Headache POCT GLUCOSE - DOCKED DEVICE Routine 08/29/2025 8:02 PM PHYSICIAN LIAISON HC URINALYSIS AUTO W/MICRO STAT 08/29/2025 7:11 PM PHYSICIAN LIAISON Headache NONSTRESS TEST Routine 08/29/2025 7:09 PM PHYSICIAN LIAISON Headache XR CHEST PORTABLE STAT 08/18/2025 8:1 8 PM CDT TROPONIN, QUANT STAT 08/18/2025 7:43 PM CDT COMPREHENSIVE METABOLIC PANEL STAT 08/18/2025 7:43 PM CDT CBC W/DIFF AUTOMATED STAT 08/18/2025 7:43 PM CDT ECG 12-LEAD STAT 08/18/2025 7:40 PM CDT HC DRUG SCREEN SGL CLASS PRESUMPTIVE INSTRMNT Routine 08/15/2025 11:35 AM CDT Decreased movement affecting [...] AUTO W/MICRO STAT 08/14/2025 11:32 AM CDT HC OPTICAL STREP STAT 08/14/2025 11:0 6 AM CDT HC RSV AG QL STAT 08/14/2025 11:06 AM CDT HC EIA QL INFLUENZA A/B AG STAT 08/14/2025 11:06 AM CDT CORONAVIRUS (COVID-19) ANTIGEN STAT 08/14/2025 11:06 AM CDT CULTURE, GENITAL W/ GRAM STAIN Routine 07/23/2025 3:00 PM CDT Back pain affecting (HHS/HCC) CHLAM/GC/TRICHOMONAS PROFILE Routine 07/23/2025 3:00 PM CDT Back pain affecting (HHS/HCC) HC URINALYSIS AUTO W/MICRO STAT 07/23/2025 1:45 PM CDT Back pain affecting (HHS/HCC) HC URINALYSIS AUTO W/MICRO STAT 07/04/2025 12:35 PM CDT HC RSV AG QL STAT 07/04/2025 12:20 PM CDT HC OPTICAL STREP STAT 07/04/2025 12:2 0 PM CDT HC EIA QL INFLUENZA A/B AG STAT 07/04/2025 12:20 PM CDT CORONAVIRUS (COVID-19) ANTIGEN STAT 07/04/2025 12:20 PM CDT HC URINALYSIS AUTO W/MICRO STAT 06/24/2025 11:31 PM CDT Abdominal pain affecting , antepartum (HHS/HCC) NONSTRESS TEST Routine 06/24/2025 10:37 PM CDT Abdominal pain affecting , antepartum (HHS/HCC) CHLAM/GC/TRICHOMONAS PROFILE Routine 06/20/2025 5:14 PM CDT Visual disturbances (HHS/HCC) HC CULTURE URINE W/COLONY CT Routine 06/20/2025 4:06 PM CDT Visual disturbances (HHS/HCC) HC URINALYSIS AUTO W/MICRO Routine 06/20/2025 4:06 PM CDT Visual disturbances (HHS/HCC) NONSTRESS TEST Routine 06/20/2025 4:01 PM CDT Visual disturbances (HHS/HCC) from Last 3 Months Results * CTA CHEST PE PROTOCOL (09/12/2025 2:00 PM PHYSICIAN LIAISON) Anatomical Region Laterality Modality Chest Computed Tomogra phy 09/12/2025 2:07 PM PHYSICIAN LIAISON Impressions 09/12/2025 2:10 PM PHYSICIAN LIAISON IMPRESSION: 1. No pulmonary thromboembolic disease. 2. Small bilateral pleural effusions. Referred By: Interpreted By: Nate Root MD, 09/12/2025 2:07 PM Narrative 09/12/2025 2:10 PM PHYSICIAN LIAISON [place] [id number] [place] [address] EXAMINATION: CTA CHEST PE PROTOCOL, 09/12/2025 2:07 PM TECHNIQUE: Computed tomographic images of the chest were obtained after the administration of 100 mL of Isovue-370 injected through the IV, without evidence of adverse reaction. Additional coronal and sagittal reformatted as well as maximum intensity projection images were generated. A dose lowering technique was used for this procedure, which may include, but is not limited to, dose reduction technique, automated exposure control, the use of iterative reconstruction, and ALARA (As Low As Reasonably Achievable) / Image Gently techniques. HISTORY: Chest pain and not feeling right. c/o vaginal bleeding, 8 days post- and headache. Pt reports she delivered in [facility] 8 days ago and had a tubal ligation. States she had not been bleeding much and this am had blood in her underwear and has used 1 pad. States it is just spotting. Pt reports she has been having headaches and getting dizziness since delivering. COMPARISON: CT chest 01/17/2025 FINDINGS: Pulmonary arteries are well-opacified and there is no pulmonary thromboembolic disease. There is no focal pulmonary consolidation. Small bilateral pleural effusions. Atelectasis in the left lung base. Heart size is normal. No pericardial abnormality. The caliber of the thoracic aorta is normal. No mediastinal adenopathy or hematoma. Cholecystectomy. No acute fracture nor destructive process of the visualized osseous structures. Procedure Note Nate Root MD - 09/12/2025 [place] [id number] [place] [address] EXAMINATION: CTA CHEST PE PROTOCOL, 09/12/2025 2:07 PM TECHNIQUE: Computed tomographic images of the chest were obtained afterthe administration of 100 mL of Isovue-370 injected through the IV,without evidence of adverse reaction. Additional coronal and sagittalreformatted as well as maximum intensity projection images were generated.A dose lowering technique was used for this procedure, which may include,but is not limited to, dose reduction technique, automated exposurecontrol, the use of iterative reconstruction, and ALARA (As Low AsReasonably Achievable) / Image Gently techniques. HISTORY: Chest pain and not feeling right. c/o vaginal bleeding, 8 dayspost- and headache. Pt reports she delivered in [facility] 8days ago and had a tubal ligation. States she had not been bleeding muchand this am had blood in her underwear and has used 1 pad. States it isjust spotting. Pt reports she has been having headaches and gettingdizziness since delivering. COMPARISON: CT chest 01/17/2025 FINDINGS: Pulmonary arteries are well-opacified and there is no pulmonarythromboembolic disease. There is no focal pulmonary consolidation. Smallbilateral pleural effusions. Atelectasis in the left lung base. Heartsize is normal. No pericardial abnormality. The caliber of the thoracicaorta is normal. No mediastinal adenopathy or hematoma. Cholecystectomy.No acute fracture nor destructive process of the visualized osseousstructures. IMPRESSION: 1. No pulmonary thromboembolic disease. 2. Small bilateral pleural effusions. Referred By: Interpreted By: Nate Root MD, 09/12/2025 2:07 PM us Emy Irene MD CT Final Resul t * TROPONIN, QUANT (09/12/2025 1:10 PM PHYSICIAN LIAISON) [facility] TROPONIN I HIGH SENSITIVITY 6 0 - 51 ng/L 09/12/2025 1:36 PM PHYSICIAN LIAISON [facility] BLOOD VENOUS BLOOD SPECIMEN / Unknown 09/12/2025 1:10 PM PHYSICIAN LIAISON us Emy Irene MD LABORATORY Final Resul t Performing Organization Address City/[facility]/ZIP Co de Phone Number [facility] [address] [place] [id number], * (ABNORMAL) D-DIMER, QUANTITATIVE (09/12/2025 1:10 PM PHYSICIAN LIAISON) [facility] D-DIMER 3,465(H) 0 - 500 ng{FEU}/mL 09/12/2025 1:39 PM PHYSICIAN LIAISON [facility] Comment: CALLED TO EZEKIEL KIRAN AT 1327 BY READ BACK AND VERIFIED D-Dimer values [...] outcomes and no additional false negative findings. BLOOD VENOUS BLOOD SPECIMEN / Unknown 09/12/2025 1:10 PM PHYSICIAN LIAISON us Emy Irene MD LABORATORY Final Resul t Performing Organization Address City/[facility]/ZIP Co de Phone Number [facility] [address] [place] [address], [place] [phone] * (ABNORMAL) CBC, AUTO, NO DIFF (09/12/2025 1:10 PM PHYSICIAN LIAISON) [facility] WBC 8.21 4.00 - 10.80 x10'3/uL 09/12/2025 1:17 PM PHYSICIAN LIAISON [facility] RBC 4.34 4.10 - 5.40 x10'6/uL 09/12/2025 1:17 PM PHYSICIAN LIAISON [facility] HGB 11.2(L) 12.0 - 16.0 G/DL 09/12/2025 1:17 PM PHYSICIAN LIAISON [facility] HCT 35.9(L) 36.0 - 47.0 % 09/12/2025 1:17 PM [facility] MCV 82.7 78.0 - 100.0 FL 09/12/2025 1:17 PM PHYSICIAN LIAISON [facility] MCH 25.8(L) 27.0 - 31.0 PG 09/12/2025 1:17 PM PHYSICIAN LIAISON [facility] MCHC 31.2(L) 33.0 - 36.0 G/DL 09/12/2025 1:17 PM PHYSICIAN LIAISON [facility] RDW 14.6(H) 11.5 - 14.5 % 09/12/2025 1:17 PM [facility] PLT 320 150 - 350 x10'3/uL 09/12/2025 1:17 PM [facility] MPV 9.2 7.4 - 10.4 FL 09/12/2025 1:17 PM [facility] BLOOD VENOUS BLOOD SPECIMEN / Unknown 09/12/2025 1:10 PM PHYSICIAN LIAISON us Emy Irene MD LABORATORY Final Resul t [facility] [address] [email or web address] [address], * (ABNORMAL) BASIC METABOLIC PANEL (09/12/2025 1:10 PM PHYSICIAN LIAISON) SODIUM S/P/B 145 136 - 145 MMOL/L 09/12/2025 1:36 PM PHYSICIAN LIAISON [facility] POTASSIUM S/P/B 3.7 3.5 - 5.1 MMOL/L 09/12/2025 1:36 PM [facility] CHLORIDE S/P/B 109(H) 98 - 107 MMOL/L 09/12/2025 1:36 PM [facility] CO2 25.5 21.0 - 32.0 MMOL/L 09/12/2025 1:36 PM [facility] GLUCOSE 95 70 - 99 MG/DL 09/12/2025 1:36 PM [facility] Comment: FASTING GLUCOSE 100 TO 125 MG/DL IS CONSISTENT WITH IMPAIRED FASTING GLUCOSE. FASTING GLUCOSE >125 MG/DL IS CONSISTENT WITH DIABETES. RANDOM GLUCOSE >200 MG/DL WITH HYPERGLYCEMIC SYMPTOMS IS CONSISTENT WITH DIABETES. PER ADA GUIDELINES BUN 15 6 - 24 MG/DL 09/12/2025 1:36 PM [facility] CREATININE S/P/B 0.57 0.55 - 1.02 MG/DL 09/12/2025 1:36 PM [facility] CALCIUM S/P/B 9.0 8.4 - 10.5 MG/DL 09/12/2025 1:36 PM [facility] ANION GAP 10.5 5.0 - 15.0 MMOL/L 09/12/2025 1:36 PM [facility] OSMOLALITY (CALC) 301 MOSM/KG 025 1:36 PM [facility] Comment:REFERENCE RANGE NOT ESTABLISHED GFR ESTIMATE >90 >89 ML/MIN/1. 73 M2 09/12/2025 1:36 PM [facility] GFR NOTES GFR REFERENCE S: 09/12/2025 1:36 PM [facility] Comment: THE ESTIMATED GFR [...] ml/min/1.73 m2 G5,KIDNEY FAILURE: <15 ml/min/1.73 m2 BLOOD VENOUS BLOOD SPECIMEN / Unknown 09/12/2025 1:10 PM PHYSICIAN LIAISON us Emy Irene MD LABORATORY Final Resul t Performing Organization Address City/[facility]/ZIP Co de Phone Number [facility] [address] [place] [address], * PRO-BRAIN NATRIURETIC PEPTIDE (09/12/2025 1:10 PM PHYSICIAN LIAISON) PRO-B TYPE NATRIURETIC PEPTIDE 19 <125 PG/ML 09/12/2025 2:48 PM PHYSICIAN LIAISON [facility] Comment: CUT POINTS ESTABLISHED BY [employer] ON NT PROBNP (ICON) STUDY (2006). AGE INDEPENDENT: <300 PG/ML HAS A 99% NEGATIVE PREDICTIVE VALUE FOR EXCLUDING ACUTE CHF <50 YEARS: >450 PG/ML IS CONSISTENT WITH ACUTE CHF 50-75 YEARS: >900 PG/ML IS CONSISTENT WITH ACUTE CHF >75 YEARS: >1800 PG/ML IS CONSISTENT WITH ACUTE CHF IN PATIENTS WITH RENAL INSUFFICIENCY (GFR <60), >1200 PG/ML YIELDS A DIAGNOSTIC SENSITIVITY AND SPECIFICITY OF 89% AND 72% FOR ACUTE CHF. BLOOD VENOUS BLOOD SPECIMEN / Unknown 09/12/2025 1:10 PM PHYSICIAN LIAISON us Emy Irene MD LABORATORY Final Resul t Performing Organization Address [facility] Co de Phone Number [facility] [address] [place] [phone], [place] [phone] * ECG 12 lead (09/12/2025 12:50 PM PHYSICIAN LIAISON) Only the most recent of4 resultswithin the time period is included. 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2000 Requested By: EMY IRENE Order Number: [id number] Reading MD: Steph Hightower Measurements Intervals [place] Rate: 56 P: 64 RI: 152 QRS: 55 QRSD: 81 T: 53 QT: 406 QTc: 393 Interpretive Statements SINUS BRADYCARDIA WITH SINUS ARRHYTHMIA ICIAN LIAISON us Emy Irene MD ECG ORDERABLES Final Resul t [facility] * (ABNORMAL) URINALYSIS (09/12/2025 9:56 AM PHYSICIAN LIAISON) COLOR (U) YELLOW 09/12/2025 10:10 AM PHYSICIAN LIAISON [facility] TRANSPARENCY SLIGHTLY CLOUDY 09/12/2025 10:10 AM [facility] SPECIFIC GRAVITY (U) 1.020 1.000 - 1.025 09/12/2025 10:10 AM [facility] U PH 6.0 5.0 - 8.0 09/12/2025 10:10 AM [facility] LEUKOCYTES (U) 1+(A) NEGATIVE 09/12/2025 10:10 AM PHYSICIAN LIAISON [facility] NITRITES NEGATIVE NEGATIVE 09/12/2025 10:10 AM [facility] PROTEIN RANDOM (U) TRACE(A) NEGATIVE 09/12/2025 10:10 AM [facility] GLUCOSE (U) NEGATIVE NEGATIVE 09/12/2025 10:10 AM [facility] KETONES MG/DL (U) NEGATIVE NEGATIVE 09/12/2025 10:10 AM [facility] UROBILINOGEN 0.2 <1.0 EU/DL 09/12/2025 10:10 AM [facility] BILIRUBIN (U) NEGATIVE NEGATIVE 09/12/2025 10:10 AM [facility] BLOOD (U) 3+(A) NEGATIVE 09/12/2025 10:10 AM [facility] WBC/HPF 5-10(A) 0 - 5 /HPF 09/12/2025 10:10 AM [facility] RBC/HPF 10-20(A) 0 - 5 /HPF 09/12/2025 10:10 AM [facility] EPI/LPF MODERATE /LPF 09/12/2025 10:10 AM [facility] BACTERIA (U) 2+ /HPF 09/12/2025 10:10 AM [facility] MUCUS PRESENT 09/12/2025 10:10 AM [facility] URINE URINE SPECIMEN OBTAINED BY CLEAN CATCH PROCEDURE / Unknown 09/12/2025 9:56 AM PHYSICIAN LIAISON us Emy Irene MD URINE ORDERABLES Final Resu lt [facility] [address] [email or web address] [address], * (ABNORMAL) PROTEIN CREAT RATIO URINE (09/12/2025 9:56 AM PHYSICIAN LIAISON) PROTEIN URINE TOTAL RANDOM 21.0(H) <11.9 MG/DL 09/12/2025 10:14 AM PHYSICIAN LIAISON [facility] CREATININE RANDOM (U) 143.0 MG/DL 09/12/2025 10:14 AM [facility] Comment:REFERENCE RANGE NOT ESTABLISHED PROTEIN/CREATINI NE RATIO 0.1 09/12/2025 10:14 AM [facility] Comment:CALCULATED VALUE. ST ANDARD REFERENCE RANGE HAS NOT BEEN ESTABLISHED. URINE URINE SPECIMEN OBTAINED BY CLEAN CATCH PROCEDURE / Unknown 09/12/2025 9:56 AM PHYSICIAN LIAISON us Emy Irene MD URINE ORDERABLES Final Resu lt [facility] [address] [email or web address] [address], * (ABNORMAL) COMPREHENSIVE METABOLIC PANEL (09/12/2025 9:37 AM PHYSICIAN LIAISON) SODIUM S/P/B 143 136 - 145 MMOL/L 09/12/2025 9:59 AM [facility] POTASSIUM S/P/B 4.1 3.5 - 5.1 MMOL/L 09/12/2025 9:59 AM [facility] CHLORIDE S/P/B 106 98 - 107 MMOL/L 09/12/2025 9:59 AM [facility] CO2 26.8 21.0 - 32.0 MMOL/L 09/12/2025 9:59 AM [facility] GLUCOSE 93 70 - 99 MG/DL 09/12/2025 9:59 AM [facility] Comment: FASTING GLUCOSE 100 TO 125 MG/DL IS CONSISTENT WITH IMPAIRED FASTING GLUCOSE. FASTING GLUCOSE >125 MG/DL IS CONSISTENT WITH DIABETES. RANDOM GLUCOSE >200 MG/DL WITH HYPERGLYCEMIC SYMPTOMS IS CONSISTENT WITH DIABETES. PER ADA GUIDELINES BUN 18 6 - 24 MG/DL 09/12/2025 9:59 AM [facility] CREATININE S/P/B 0.66 0.55 - 1.02 MG/DL 09/12/2025 9:59 AM [facility] CALCIUM S/P/B 9.3 8.4 - 10.5 MG/DL 09/12/2025 9:59 AM [facility] BILIRUBIN TOTAL S/P/B 0.3 0.2 - 1.0 MG/DL 09/12/2025 9:59 AM [facility] Comment: THIS ASSAY IS NOT RECOMMENDED FOR PATIENTS UNDERGOING TREATMENT WITH ELTROMBOPAG DUE TO THE POTENTIAL FOR FALSELY ELEVATED RESULTS. ALKALINE PHOSPHATASE S/P/B 135(H) 37 - 98 U/L 09/12/2025 9:59 AM [facility] AST 21 15 - 37 U/L 09/12/2025 9:59 AM [facility] ALT 52 14 - 59 U/L 09/12/2025 9:59 AM [facility] TOTAL PROTEIN S/P/B 7.3 6.4 - 8.2 G/DL 09/12/2025 9:59 AM [facility] ALBUMIN S/P/B 2.9(L) 3.4 - 5.0 G/DL 09/12/2025 9:59 AM [facility] ANION GAP 10.2 5.0 - 15.0 MMOL/L 09/12/2025 9:59 AM [facility] OSMOLALITY (CALC) 298 MOSM/KG 025 9:59 AM [facility] Comment:REFERENCE RANGE NOT ESTABLISHED GFR ESTIMATE >90 >89 ML/MIN/1. 73 M2 09/12/2025 9:59 AM [facility] GFR NOTES GFR REFERENCE S: 09/12/2025 9:59 AM [facility] Comment: THE ESTIMATED GFR [...] ml/min/1.73 m2 G5,KIDNEY FAILURE: <15 ml/min/1.73 m2 BLOOD VENOUS BLOOD SPECIMEN / Unknown 09/12/2025 9:37 AM PHYSICIAN LIAISON us Emy Irene MD LABORATORY Final Resul t [facility] [address] [place] [address], * (ABNORMAL) CBC W/DIFF AUTOMATED (09/12/2025 9:37 AM PHYSICIAN LIAISON) WBC 7.55 4.00 - 10.80 x10'3/uL 09/12/2025 9:43 AM PHYSICIAN LIAISON [facility] RBC 4.55 4.10 - 5.40 x10'6/uL 09/12/2025 9:43 AM [facility] HGB 11.6(L) 12.0 - 16.0 G/DL 09/12/2025 9:43 AM [facility] HCT 37.5 36.0 - 47.0 % 09/12/2025 9:43 AM [facility] MCV 82.4 78.0 - 100.0 FL 09/12/2025 9:43 AM PHYSICIAN LIAISON [facility] MCH 25.5(L) 27.0 - 31.0 PG 09/12/2025 9:43 AM [facility] MCHC 30.9(L) 33.0 - 36.0 G/DL 09/12/2025 9:43 AM [facility] RDW 14.6(H) 11.5 - 14.5 % 09/12/2025 9:43 AM PHYSICIAN LIAISON [facility] PLT 323 150 - 350 x10'3/uL 09/12/2025 9:43 AM [facility] MPV 9.0 7.4 - 10.4 FL 09/12/2025 9:43 AM [facility] CBC COMMENT NORMAL REFERENCE RANGE NOT ESTABLISHED FOR THE PROPORTIONAL LEUKOCYTE DIFFERENTIAL. 09/12/2025 9:43 AM [facility] NEUTROPHILS % 57.8 % 09/12/2025 9:43 AM [facility] LYMPHOCYTES % 25.0 % 09/12/2025 9:43 AM [facility] MONOCYTES % 9.4 % 09/12/2025 9:43 AM PHYSICIAN LIAISON [facility] EOSINOPHILS % 6.9 % 09/12/2025 9:43 AM PHYSICIAN LIAISON [facility] BASOPHILS % 0.4 % 09/12/2025 9:43 AM PHYSICIAN LIAISON [facility] IMMATURE GRANS % 0.5 % 09/12/20 25 9:43 AM PHYSICIAN LIAISON [facility] NRBC % 0.0 % 09/12/2025 9:43 AM PHYSICIAN LIAISON [facility] ABS. NEUTROPHILS 4.36 1.60 - 8.30 x10'3/uL 09/12/2025 9:43 AM PHYSICIAN LIAISON [facility] ABS. LYMPHOCYTES 1.89 0.80 - 4.70 x10'3/uL 09/12/2025 9:43 AM PHYSICIAN LIAISON [facility] ABS. MONOCYTES 0.71 0.00 - 1.50 x10'3/uL 09/12/2025 9:43 AM PHYSICIAN LIAISON [facility] ABS. EOSINOPHILS 0.52(H) 0.00 - 0.40 x10'3/uL 09/12/2025 9:43 AM PHYSICIAN LIAISON [facility] ABS. BASOPHILS 0.03 0.00 - 0.20 x10'3/uL 09/12/2025 9:43 AM PHYSICIAN LIAISON [facility] ABS. IMMATURE GRANULOCYTES 0.04(H) 0.00 - 0.03 x10'3/uL 09/12/2025 9:43 AM PHYSICIAN LIAISON [facility] ABS. NUCLEATED RBC'S 0.00 0.00 - 0.01 x10'3/uL 09/12/2025 9:43 AM PHYSICIAN LIAISON [facility] BLOOD VENOUS BLOOD SPECIMEN / Unknown 09/12/2025 9:37 AM PHYSICIAN LIAISON us Emy Irene MD LABORATORY Final Resul t [facility] [address] [place] [address], * (ABNORMAL) COMPREHENSIVE METABOLIC PANEL (08/29/2025 8:34 PM PHYSICIAN LIAISON) Only the most recent of2 resultswithin the time period is included. SODIUM S/P/B 136 136 - 145 MMOL/L 08/29/2025 8:55 PM [facility] POTASSIUM S/P/B 3.6 3.5 - 5.1 MMOL/L 08/29/2025 8:55 PM [facility] CHLORIDE S/P/B 102 98 - 107 MMOL/L 08/29/2025 8:55 PM [facility] CO2 23.5 21.0 - 32.0 MMOL/L 08/29/2025 8:55 PM [facility] GLUCOSE 123(H) 70 - 99 MG/DL 08/29/2025 8:55 PM [facility] Comment: FASTING GLUCOSE 100 TO 125 MG/DL IS CONSISTENT WITH IMPAIRED FASTING GLUCOSE. FASTING GLUCOSE >125 MG/DL IS CONSISTENT WITH DIABETES. RANDOM GLUCOSE >200 MG/DL WITH HYPERGLYCEMIC SYMPTOMS IS CONSISTENT WITH DIABETES. PER ADA GUIDELINES BUN 10 6 - 24 MG/DL 08/29/2025 8:55 PM [facility] CREATININE S/P/B 0.48(L) 0.55 - 1.02 MG/DL 08/29/2025 8:55 PM [facility] CALCIUM S/P/B 9.3 8.4 - 10.5 MG/DL 08/29/2025 8:55 PM [facility] BILIRUBIN TOTAL S/P/B 0.2 0.2 - 1.0 MG/DL 08/29/2025 8:55 PM [facility] Comment: THIS ASSAY IS NOT RECOMMENDED FOR PATIENTS UNDERGOING TREATMENT WITH ELTROMBOPAG DUE TO THE POTENTIAL FOR FALSELY ELEVATED RESULTS. ALKALINE PHOSPHATASE S/P/B 137(H) 37 - 98 U/L 08/29/2025 8:55 PM [facility] AST 13(L) 15 - 37 U/L 08/29/2025 8:55 PM [facility] ALT 14 14 - 59 U/L 08/29/2025 8:55 PM [facility] TOTAL PROTEIN S/P/B 6.1(L) 6.4 - 8.2 G/DL 08/29/2025 8:55 PM PHYSICIAN LIAISON [facility] ALBUMIN S/P/B 2.4(L) 3.4 - 5.0 G/DL 08/29/2025 8:55 PM PHYSICIAN LIAISON [facility] ANION GAP 10.5 5.0 - 15.0 MMOL/L 08/29/2025 8:55 PM PHYSICIAN LIAISON [facility] OSMOLALITY (CALC) 282 MOSM/KG 025 8:55 PM [facility] Comment:REFERENCE RANGE NOT ESTABLISHED GFR ESTIMATE >90 >89 ML/MIN/1. 73 M2 08/29/2025 8:55 PM [facility] GFR NOTES GFR REFERENCE S: 08/29/2025 8:55 PM [facility] Comment: THE ESTIMATED GFR [...] FAILURE: <15 ml/min/1.73 m2 08/29/2025 8:34 PM PHYSICIAN LIAISON Lester Valle MD LABORATORY Final Result [facility] [address] [place] [address], * (ABNORMAL) CBC W/DIFF AUTOMATED (08/29/2025 8:34 PM PHYSICIAN LIAISON) Only the most recent of2 resultswithin the time period is included. WBC 8.72 4.00 - 10.80 x10'3/uL 08/29/2025 8:39 PM PHYSICIAN LIAISON [facility] RBC 3.94(L) 4.10 - 5.40 x10'6/uL 08/29/2025 8:39 PM PHYSICIAN LIAISON [facility] HGB 10.2(L) 12.0 - 16.0 G/DL 08/29/2025 8:39 PM [facility] HCT 32.0(L) 36.0 - 47.0 % 08/29/2025 8:39 PM [facility] MCV 81.2 78.0 - 100.0 FL 08/29/2025 8:39 PM PHYSICIAN LIAISON [facility] MCH 25.9(L) 27.0 - 31.0 PG 08/29/2025 8:39 PM [facility] MCHC 31.9(L) 33.0 - 36.0 G/DL 08/29/2025 8:39 PM [facility] RDW 14.3 11.5 - 14.5 % 08/29/2025 8:39 PM [facility] PLT 217 150 - 350 x10'3/uL 08/29/2025 8:39 PM [facility] MPV 9.5 7.4 - 10.4 FL 08/29/2025 8:39 PM [facility] CBC COMMENT NORMAL REFERENCE RANGE NOT ESTABLISHED FOR THE PROPORTIONAL LEUKOCYTE DIFFERENTIAL. 08/29/2025 8:39 PM [facility] NEUTROPHILS % 63.2 % 08/29/2025 8:39 PM [facility] LYMPHOCYTES % 21.4 % 08/29/2025 8:39 PM [facility] MONOCYTES % 12.5 % 08/29/2025 8:39 PM [facility] EOSINOPHILS % 1.1 % 08/29/2025 8:39 PM [facility] BASOPHILS % 0.1 % 08/29/2025 8:39 PM [facility] IMMATURE GRANS % 1.7 % 08/29/20 8:39 PM PHYSICIAN LIAISON [facility] NRBC % 0.0 % 08/29/2025 8:39 PM [facility] ABS. NEUTROPHILS 5.50 1.60 - 8.30 x10'3/uL 08/29/2025 8:39 PM PHYSICIAN LIAISON [facility] ABS. LYMPHOCYTES 1.87 0.80 - 4.70 x10'3/uL 08/29/2025 8:39 PM PHYSICIAN LIAISON [facility] ABS. MONOCYTES 1.09 0.00 - 1.50 x10'3/uL 08/29/2025 8:39 PM PHYSICIAN LIAISON [facility] ABS. EOSINOPHILS 0.10 0.00 - 0.40 x10'3/uL 08/29/2025 8:39 PM PHYSICIAN LIAISON [facility] ABS. BASOPHILS 0.01 0.00 - 0.20 x10'3/uL 08/29/2025 8:39 PM PHYSICIAN LIAISON [facility] ABS. IMMATURE GRANULOCYTES 0.15(H) 0.00 - 0.03 x10'3/uL 08/29/2025 8:39 PM PHYSICIAN LIAISON [facility] ABS. NUCLEATED RBC'S 0.00 0.00 - 0.01 x10'3/uL 08/29/2025 8:39 PM PHYSICIAN LIAISON [facility] 08/29/2025 8:34 PM PHYSICIAN LIAISON Lester Valle MD LABORATORY Final Result [facility] [address] [place] [address], * CORONAVIRUS (COVID-19) ANTIGEN (08/29/2025 8:16 PM PHYSICIAN LIAISON) Only the most recent of3 resultswithin the time period is included. CORONAVIRUS ANTIGEN IA NEGATIVE NEGATIVE 08/29/2025 8:55 PM PHYSICIAN LIAISON [facility] Comment: NEGATIVE RESULTS DO NOT RULE [...] LABORATORIES. SPECIMEN TYPE NASAL 08/29/2025 8:34 PM PHYSICIAN LIAISON [facility] NASAL NASAL STRUCTURE / Unknown 08/29/2025 8:16 PM PHYSICIAN LIAISON us Lester Valle MD MICROBIOLOGY - GENERAL ORDERA BLES Final Result Performing Organization Address [facility] de Phone Number [place] [phone], * INFLUENZA A & B (08/29/2025 8:16 PM PHYSICIAN LIAISON) Only the most recent of3 resultswithin the time period is included. SPECIMEN TYPE (INFLUENZA) NASAL 08/29/2025 8:21 PM PHYSICIAN LIAISON [facility] INFLUENZA A NEGATIVE NEGATIVE 08/29/2025 8:49 PM PHYSICIAN LIAISON [facility] INFLUENZA B NEGATIVE NEGATIVE 08/29/2025 8:49 PM PHYSICIAN LIAISON [facility] Comment: A NEGATIVE RESULT DOES NOT EXCLUDE INFLUENZA VIRUS INFECTION. IF INFLUENZA IS CIRCULATING IN YOUR COMMUNITY, A DIAGNOSIS OF INFLUENZA SHOULD BE CONSIDERED BASED ON A PATIENT'S CLINICAL PRESENTATION AND EMPIRIC ANTIVIRAL TREATMENT SHOULD BE CONSIDERED IF INDICATED. NASAL STRUCTURE / Unknown 08/29/2025 8:16 PM PHYSICIAN LIAISON us Lester Valle MD MICROBIOLOGY - GENERAL ORDERA BLES Final Result Performing Organization Address [facility] Co de Phone Number [facility] [address] [place] [address], * RESP SYNCYTIAL VIRUS (08/29/2025 8:16 PM PHYSICIAN LIAISON) Only the most recent of3 resultswithin the time period is included. SPECIMEN TYPE NASOPHARYNGEAL SWAB 08/29/2025 8:21 PM PHYSICIAN LIAISON [facility] RSV NEGATIVE NEGATIVE 08/29/2025 8:49 PM PHYSICIAN LIAISON [facility] NASOPHARYNGEAL SWAB / Unknown 08/29/2025 8:16 PM PHYSICIAN LIAISON Lester Valle MD MICROBIOLOGY - GENERAL ORDERA BLES Final Result Performing Organization Address [facility]/ZIP Co de Phone Number [facility] [address] [place] [address], [place] [phone] * (ABNORMAL) POCT glucose (08/29/2025 8:02 PM PHYSICIAN LIAISON) Only the most recent of2 resultswithin the time period is included. GLUCOSE POC 128(H) 70 - 99 MG/DL 08/29/2025 8:04 PM PHYSICIAN LIAISON [facility] 08/29/2025 8:02 PM PHYSICIAN LIAISON Lester Valle MD POCT ORDERABLES - DEVICE Zully l Result Performing Organization Address [facility] [place] [address], * (ABNORMAL) URINALYSIS (08/29/2025 7:11 PM PHYSICIAN LIAISON) Only the most recent of7 resultswithin the time period is included. COLOR (U) YELLOW 08/29/2025 7:26 PM PHYSICIAN LIAISON [facility] TRANSPARENCY CLEAR 08/29/2025 7:26 PM PHYSICIAN LIAISON [facility] SPECIFIC GRAVITY (U) 1.030(H) 1.000 - 1.025 08/29/2025 7:26 PM PHYSICIAN LIAISON [facility] Comment:EQUAL TO OR GREATER THAN U PH 6.0 5.0 - 8.0 08/29/2025 7:26 PM PHYSICIAN LIAISON [facility] LEUKOCYTES (U) NEGATIVE NEGATIVE 08/29/2025 7:26 PM PHYSICIAN LIAISON [facility] NITRITES NEGATIVE NEGATIVE 08/29/2025 7:26 PM [facility] PROTEIN RANDOM (U) TRACE(A) NEGATIVE 08/29/2025 7:26 PM PHYSICIAN LIAISON [facility] GLUCOSE (U) NEGATIVE NEGATIVE 08/29/2025 7:26 PM PHYSICIAN LIAISON [facility] KETONES MG/DL (U) TRACE(A) NEGATIVE 08/29/2025 7:26 PM PHYSICIAN LIAISON [facility] UROBILINOGEN 1.0(H) <1.0 EU/DL 08/29/2025 7:26 PM [facility] BILIRUBIN (U) NEGATIVE NEGATIVE 08/29/2025 7:26 PM PHYSICIAN LIAISON [facility] BLOOD (U) NEGATIVE NEGATIVE 08/29/2025 7:26 PM PHYSICIAN LIAISON [facility] WBC/HPF 0-5 0 - 5 /HPF 08/29/2025 7:26 PM PHYSICIAN LIAISON [facility] RBC/HPF 0-5 0 - 5 /HPF 08/29/2025 7:26 PM PHYSICIAN LIAISON [facility] EPI/LPF FEW /LPF 08/29/2025 7:26 PM PHYSICIAN LIAISON [facility] BACTERIA (U) 2+ /HPF 08/29/2025 7:26 PM PHYSICIAN LIAISON [facility] MUCUS PRESENT 08/29/2025 7:26 PM PHYSICIAN LIAISON [facility] URINE SPECIMEN OBTAINED BY CLEAN CATCH PROCEDURE / Unknown 08/29/2025 7:11 PM PHYSICIAN LIAISON Lester Valle MD URINE ORDERABLES Final Result [facility] [address] [place] [id number], * XR CHEST PORTABLE (08/18/2025 8:18 PM CDT) Anatomical Region Laterality Modality Chest [...] 8:23 PM Narrative 08/18/2025 9:15 PM CDT [address] [place] [address] Examination: Chest x-ray 1 view Exam time: [...] acute osseous abnormality is identified. Procedure Note Timotyh Mohan MD - 08/18/[address] [place] [address] Examination: Chest x-ray 1 view Exam time: [...] * TROPONIN, QUANT (08/18/2025 7:43 PM CDT) TROPONIN I HIGH SENSITIVITY 4 0 - 51 ng/L 08/18/2025 9:13 PM CDT [facility] 08/18/2025 7:43 PM CDT Nacho Breen MD LABORATORY Final Result [facility] [address] [place] [address], * DRUG SCREEN RAPID (08/15/2025 11:35 AM CDT) Pathologist [facility] CANNABINOIDS SCREEN (U) NEGATIVE NEGATIVE 08/15/2025 11:57 AM CDT [facility] PHENCYCLIDINE PCP (U) NEGATIVE NEGATIVE 08/15/2025 11:57 AM CDT [facility] COCAINE METABOLITES (U) NEGATIVE NEGATIVE 08/15/2025 11:57 AM CDT [facility] METHAMPHETAMINE SCREEN (U) NEGATIVE NEGATIVE 08/15/2025 11:57 AM CDT [facility] OPIATE SCREEN (U) NEGATIVE NEGATIVE 025 11:57 AM CDT [facility] AMPHETAMINE SCREEN (U) NEGATIVE NEGATIVE 08/15/2025 11:57 AM CDT [facility] BENZODIAZEPINES SCREEN (U) NEGATIVE NEGATIVE 08/15/2025 11:57 AM CDT [facility] TRICYCLIC ANTIDEPRESSANT SCREEN (U) NEGATIVE NEGATIVE 08/15/2025 11:57 AM CDT [facility] METHADONE (U) NEGATIVE NEGATIVE 08/15/2025 11:57 AM CDT [facility] BARBITURATES SCREEN (U) NEGATIVE NEGATIVE 08/15/2025 11:57 AM CDT [facility] OXYCODONE SCREEN (U) NEGATIVE NEGATIVE 08/15/2025 11:57 AM CDT [facility] URINE TOX COMMENT THIS TEST METHODOLOGY IS DESIGNED AND OFFERED A RAPID TURNAROUND, QUALITATIVE SCREENING PROCEDURE TO AID IN THE IMMEDIATE MEDICAL ASSESSMENT OF PATIENTS SUSPECTED OF SUBSTANCE ABUSE. 08/15/2025 11:36 AM CDT [facility] Comment: CLINICAL CONSIDERATION AND PROFESSIONAL JUDGMENT MUST BE APPLIED TO ANY DRUG OF ABUSE TEST RESULT, BOTH POSITIVE AND NEGATIVE. CONFIRMATORY QUANTITATIVE RESULTS ARE AVAILABLE THROUGH OUR [facility]. URINE SPECIMEN / Unknown 08/15/2025 11:35 AM CDT Yeni Pinto MD URINE ORDERABLES Final Result Performing Organization Address [facility]/ZIP Co de Phone Number [facility] [address] [place] [address], * STREP A RAPID (08/14/2025 11:06 AM CDT) Only the most recent of2 resultswithin the time period is included. SPECIMEN SOURCE THROAT 08/14/2025 11:11 AM CDT [facility] RAPID STREP TEST NEGATIVE NEGATIVE 08/14/2025 11:22 AM CDT [facility] STRUCTURE OF ANTERIOR REGION OF NECK / Unknown 08/14/2025 11:06 AM CDT Naldo Cadet DO MICROBIOLOGY - GENERAL ORDERAB LES Final Result Performing Organization Address [facility]/ZIP Co de Phone Number [facility] [place] [address], [place] [phone] * CULTURE, GENITAL W/ GRAM STAIN (07/23/2025 3:00 PM CDT) SPEC DESCRIPTION VAGINAL SPECIMEN 07/23/2025 3:08 PM CDT [facility] SPECIAL REQUESTS NO SPECIAL REQUEST 07/23/2025 3:08 PM CDT [facility] GRAM STAIN RESULT MANY GRAM POSITIVE RODS 07/23/2025 3:41 PM CDT [facility] GRAM STAIN RESULT EPITHELIAL CELLS SEEN 07/23/2025 3:41 PM CDT [facility] GRAM STAIN RESULT WBC'S SEEN 07/23/2025 3:41 PM CDT [facility] GRAM STAIN RESULT NO CLUE CELLS SEEN 07/23/2025 3:41 PM CDT [facility] GRAM STAIN RESULT NO FUNGAL ELEMENTS/YEAST SEEN 07/23/2025 3:41 PM CDT [facility] CULTURE RESULT RARE STAPHYLOCOCCUS , COAGULASE NEGATIVE 07/27/2025 11:57 AM CDT [facility] CULTURE RESULT MODERATE LACTOBACILLUS SPECIES 07/27/2025 11:57 AM CDT [facility] VAGINAL STRUCTURE / Unknown 07/23/2025 3:00 PM CDT 07/23/2025 6:16 PM CDT us Марина Grace MD MICROBIOLOGY - GENERAL ORDER ARLENE Final Result Performing Organization Address [facility]/ZIP Co de Phone Number [facility] [address] [place] [address], [place] [phone] [facility] [address] [place] [address], [place] [phone] * CHLAM/GC/TRICHOMONAS PROFILE (07/23/2025 3:00 PM CDT) Only the most recent of2 resultswithin the time period is included. SPEC DESCRIPTION VAGINAL SWAB 2024 3:08 PM CDT [facility] CHLAMYDIA RNA TMA NEGATIVE NEGATIVE 025 12:18 PM CDT [facility] Comment:PERFORMED BY NUCLEIC ACID AMPLIFICATION N.GONORRHOEAE RNA TMA NEGATIVE NEGATIVE 07/26/2025 12:18 PM CDT [facility] Comment:PERFORMED BY NUCLEIC ACID AMPLIFICATION TRICHOMONAS NEGATIVE NEGATIVE 07/27/2025 12:38 PM CDT [facility] Comment:PERFORMED BY NUCLEIC ACID AMPLIFICATION VAGINAL STRUCTURE / Unknown 07/23/2025 3:00 PM CDT us Марина Grace MD MICROBIOLOGY - GENERAL ORDER ARLENE Final Result [facility] [address] [place] [address], [place] [phone] [facility] [address] [place] [address], * URINE BACTERIA CULTURE (06/20/2025 4:06 PM CDT) SPEC DESCRIPTION URINE CLEAN CATCH 06/20/2025 4:55 PM CDT [facility] SPECIAL REQUESTS NO SPECIAL REQUEST 06/20/2025 4:55 PM CDT [facility] CULTURE RESULT NO GROWTH (< OR = 1,000 CFU/ML) 06/23/2025 7:27 AM CDT [facility] URINE SPECIMEN OBTAINED BY CLEAN CATCH PROCEDURE / Unknown 06/20/2025 4:06 PM CDT 06/21/2025 12:01 PM CDT Lester Valle MD MICROBIOLOGY - GENERAL ORDERA BLES Final Result [facility] [address] [place] [address], [id number] [facility] [address] [place] [address], from Last 3 Months Insurance [employer] Care Teams Supervisor Accounts Receivable Relationship Specialty Start Date End Date Tanner Paige MD [address] [place] [address] [place] [address] PCP - General FAMILY PRACTICE 07/01/24 Steph Hightower MD [address] [place] [address] Consulting Physician CARDIOVASCULAR DISEASE 11/07/22 Janell Celaya APNP [address] [place] [address] NURSE PRACTITIONER 12/01/24
--- OUTSIDE RECORDS SUMMARY | 2025-09-16 17:51 | XMS_ITS ---
Author Organization Unknown Address [address] [place] [phone] Phone Care Team Providers Care Applications Scientist Name Role Phone SHAYNA CRESPO Attending Unavailable SEAN Balderrama Primary Unavailable Immunization [...] CVX HPV9 01/05/2017 Completed 165 CVX Results CBC W/ DIFF - Collect Date/T randall: 07/26/2024 20:25 [facility] ID: [id number] [address] [place], [place], [id number] LOINC: 69529-5 Test Value Unit Reference Range Code Code System Flag WBC 9.1 10^3uL L=4.8 H=10.8 RBC 4.76 10^6uL L=4.20 H=5.40 HEMOGLOBIN 12.7 g/dL L=12.0 H=16.0 718-7 LOINC HEMATOCRIT 40.5 VOL% L=37.0 H=47.0 4544-3 LOINC MCV 85.1 fL L=81.0 H=99.0 MCH 26.7 pg L=27.0 H=32.0 L MCHC 31.4 g/dL L=32.0 H=36.0 L PLATELETS 290 10^3uL L=100 H=400 55600-1 LOINC RDW 13.2 % L=11.7 H=15.5 %GRAN 55.5 % L=40.0 H=70.0 63115-7 LOINC %LYMPH 33.0 % L=20.0 H=45.0 736-9 LOINC %MONO 8.4 % L=2.0 H=10.0 08994-1 LOINC %EOS 2.5 % L=0.0 H=6.0 713-8 LOINC %BASO 0.4 % L=0.0 H=3.0 706-2 LOINC #NEUT 5.0 10^3uL L=1.9 H=7.6 89330-5 LOINC #LYMPH 3.0 10^3uL L=0.9 H=4.9 40694-6 LOINC #MONO 0.8 10^3uL L=0.1 H=0.9 03538-0 LOINC #EOS 0.2 10^3uL L=0.0 H=0.6 712-0 LOINC #BASO 0.04 10^3uL L=0.00 H=0.10 19152-0 LOINC #IM GRANS 0.0 10^3uL L=0.0 H=7.0 60895-8 LOINC %IM GRANS 0.2 % L=0.0 H=5.0 73068-8 LOINC %NRB 0.0 L=0.0 H=0.2 83815-5 LOINC #NRB 0.000 L=0.000 H=0.012 85974-8 LOINC MANUAL DIFF NOT INDICATED RBC MORPH NOT INDICATED COMPREHENSIVE METABOLIC PANE L - Collect Date/Time: 07/26/2024 20:25 [facility] ID: [id number] [address] [place], [place], [id number] LOINC: 03604-4 Test Value Unit Reference Range Code Code System Flag FASTING UNKNOWN BUN 20 mg/dL L=7 H=20 3094-0 LOINC CREATININE 0.80 mg/dL L=0.52 H=1.04 2160-0 LOINC GLUCOSE 90 mg/dL L=74 H=106 2345-7 LOINC SODIUM 142 mmol/L L=132 H=144 2951-2 LOINC POTASSIUM 3.7 mmol/L L=3.5 H=5.1 2823-3 LOINC CHLORIDE 104 mmol/L L=98 H=107 2075-0 LOINC CO2 26.0 mmol/L L=22.0 H=30.0 2028-9 LOINC ANION GAP 16 L=10 H=20 80755-1 LOINC OSMOLALITY 296 mOs/kG L=280 H=296 87127-3 LOINC BUN/CREAT 25.0 3097-3 LOINC CALCIUM 10.1 mg/dL L=8.3 H=10.5 07585-5 LOINC AST 25 U/L L=15 H=46 1920-8 LOINC ALT 20 U/L L=9 H=72 1742-6 LOINC ALKALINE PHOS 71 U/L L=38 H=126 6768-6 LOINC TOTAL BILI 0.4 mg/dL L=0.2 H=1.3 1975-2 LOINC ALBUMIN 4.7 G/dL L=3.5 H=5.0 1751-7 LOINC TOTAL PROTEIN 8.2 g/L L=6.3 H=8.2 2885-2 LOINC A/G RATIO 1.3 34899-2 LOINC AGE 24 89063-1 LOINC eGFR NON-AFR 93 ml/min eGFR AFR AMER 113 ml/min CPK - Collect Date/Time: 20:25 [facility] ID: [id number] [address] [place] [address], [id number] LOINC: 6 Test Value Unit Reference Range Code Code System Flag CPK 92 U/L L=30 H=170 2156-6 LOINC LACTIC ACID - Collect Date/T randall: 07/26/2024 20:25 [facility] ID: [id number] [address] [place] [address], [id number] LOINC: 92036-4 Test Value Unit Reference Range Code Code System Flag LACTIC ACID 0.7 mmol/L L=0.7 H=2.6 82201-4 LOINC MAGNESIUM - Collect Date/Patricio e: 07/26/2024 20:25 [facility] ID: [id number] [address] [place] [address], [id number] LOINC: 13458-9 Test Value Unit Reference Range Code Code System Flag MAGNESIUM 1.9 mg/dL L=1.6 H=2.3 88958-4 LOINC Social History Type Status Start Date End Date Code Code Syst em Smoking History Never smoker (Never Smoked) 813364440 SNOMED CT Sex Female Assessment You had [...] 6002 SNOMED-CT UNSPECIFIED ABDOMINAL PAIN active 215 81611 SNOMED-CT Allergies and Adverse Reactions Allergy Substance Reaction Severity Start Date Concern Status Co de Code System AMOXICILLIN Active 723 RxNorm TERBUTALINE Active 10428 RxNorm Plan of Treatment Stress Test Treadmill 01/21/2025 [facility] [employer] [facility] Consult 04/27/2025 Encounters Encounter Diagnosis Start Date Code Code Sys tem 07/26/2024 SNOMED-CT Personal Care Team Section Performer Name Performer Role Active Date Inactive Da te KRAIG ESTRADA PCP - Primary care physician 2021- 0-24 2024-09-12 KRAIG ESTRADA PCP - Primary care physician 2023-0 1-10 2024-09-12 KRAIG ESTRADA PCP - Primary care physician 2023-0 1-10 2024-09-12 KRAIG ESTRADA PCP - Primary care physician 2023-0 7-16 2024-09-12 Hong Abdi PCP - Primary care physician 2024-09-12
--- OUTSIDE RECORDS SUMMARY | 2025-09-16 17:51 | XMS_ITS ---
Author Organization Unknown Address [id number] [place] [phone] Phone Care Team Providers Care Computer Security Specialist Name Role Phone DAVID ASHTON Attending Unavailable SEAN Balderrama Primary Unavailable Immunization [...] CVX HPV9 01/05/2017 Completed [address]/NG genital swab/urine PCR CEPHEID - Collect Date/Time: 11/06/2023 00:50 [facility] ID: [id number] [address] [place] [address], [phone] LOINC: 02066-7 Test Value Unit Reference Range Code Code System Flag CT/NG SOURCE: GENITAL CT NOT DETECTED NORMAL: NOT DETECTED 16919-1 LOINC NG NOT DETECTED NORMAL: NOT DETECTED 63220-2 LOINC SEND TO IFC? NO TV Trich genital swab/urine PCR CEPHEID - Collect Date/Time: 11/06/2023 00:50 [facility] ID: [id number] [address] [place] [address], [phone] LOINC: 14292-3 Test Value Unit Reference Range Code Code System Flag TV TRICH SOURCE: GENITAL TV TRICH NOT DETECTED SEND TO IFC? NO COMPREHENSIVE METABOLIC PANE L - Collect Date/Time: 11/06/2023 00:29 [facility] ID: [id number] [address] [place] [address], [phone] LOINC: 90542-4 Test Value Unit Reference Range Code Code System Flag FASTING UNKNOWN BUN 9 mg/dL L=7 H=20 3094-0 LOINC CREATININE 0.50 mg/dL L=0.52 H=1.04 2160-0 LOINC L GLUCOSE 88 mg/dL L=74 H=106 2345-7 LOINC SODIUM 136 mmol/L L=132 H=144 2951-2 LOINC POTASSIUM 3.2 mmol/L L=3.5 H=5.1 2823-3 LOINC L CHLORIDE 104 mmol/L L=98 H=107 2075-0 LOINC CO2 23.0 mmol/L L=22.0 H=30.0 2027-9 LOINC ANION GAP 12 L=10 H=20 70641-1 LOINC OSMOLALITY 280 mOs/kG L=280 H=296 39403-1 LOINC BUN/CREAT 18.0 3097-3 LOINC CALCIUM 8.9 mg/dL L=8.3 H=10.5 28845-5 LOINC AST 18 U/L L=15 H=46 1920-8 LOINC ALT 12 U/L L=9 H=72 1742-6 LOINC ALKALINE PHOS 56 U/L L=38 H=126 6768-6 LOINC TOTAL BILI 0.2 mg/dL L=0.2 H=1.3 1975-2 LOINC ALBUMIN 3.6 G/dL L=3.5 H=5.0 1751-7 LOINC TOTAL PROTEIN 6.8 g/L L=6.3 H=8.2 2885-2 LOINC A/G RATIO 1.1 69876-9 LOINC AGE 23 34838-2 LOINC eGFR NON-AFR 161 ml/min eGFR AFR AMER 195 ml/min BETA HCG-QUANT - Collect Neil e/Time: 11/06/2023 00:29 [facility] ID: [id number] [place] [address], [phone] LOINC: 71660-2 Test Value Unit Reference Range Code Code System Flag BETA HCG-QUANT 44931.00 mIU/mL L=0.00 H=6.00 68910-1 LOINC H LIPASE - Collect Date/Time: 11/06/2023 00:29 [facility] ID: [id number] [place] [address], [phone] LOINC: 3040-3 Test Value Unit Reference Range Code Code System Flag LIPASE 76 U/L L=23 H=300 3040-3 LOINC CBC W/ DIFF - Collect Date/T randall: 11/06/2023 00:29 [facility] ID: [id number] [address] [place], [place], [phone] LOINC: 62585-4 Test Value Unit Reference Range Code Code System Flag WBC 11.2 10^3uL L=4.8 H=10.8 H RBC 3.51 10^6uL L=4.20 H=5.40 L HEMOGLOBIN 10.0 g/dL L=12.0 H=16.0 718-7 LOINC L HEMATOCRIT 30.5 VOL% L=37.0 H=47.0 4544-3 LOINC L MCV 86.9 fL L=81.0 H=99.0 MCH 28.5 pg L=27.0 H=32.0 MCHC 32.8 g/dL L=32.0 H=36.0 PLATELETS 330 10^3uL L=100 H=400 75509-0 LOINC RDW 12.4 % L=11.7 H=15.5 %GRAN 62.6 % L=40.0 H=70.0 79525-4 LOINC %LYMPH 26.0 % L=20.0 H=45.0 736-9 LOINC %MONO 8.1 % L=2.0 H=10.0 87796-5 LOINC %EOS 2.3 % L=0.0 H=6.0 713-8 LOINC %BASO 0.2 % L=0.0 H=3.0 706-2 LOINC #NEUT 7.0 10^3uL L=1.9 H=7.6 29084-2 LOINC #LYMPH 2.9 10^3uL L=0.9 H=4.9 70729-1 LOINC #MONO 0.9 10^3uL L=0.1 H=0.9 52331-9 LOINC #EOS 0.3 10^3uL L=0.0 H=0.6 712-0 LOINC #BASO 0.02 10^3uL L=0.00 H=0.10 19048-9 LOINC #IM GRANS 0.1 10^3uL L=0.0 H=7.0 49935-9 LOINC %IM GRANS 0.8 % L=0.0 H=5.0 46593-9 LOINC %NRB 0.0 L=0.0 H=0.2 01437-1 LOINC #NRB 0.000 L=0.000 H=0.012 12699-0 LOINC MANUAL DIFF NOT INDICATED RBC MORPH NOT INDICATED URINALYSIS w/Microscopy/C&S if indicated - Collect Date/Time: 11/06/2023 00:20 [facility] ID: [id number] [address] [place], [place], [phone] LOINC: 60596-3 Test Value Unit Reference Range Code Code System Flag UR SOURCE UNKNOWN 09144-0 LOINC COLOR YELLOW YELLOW 5778-6 LOINC CLARITY SL CLOUDY CLEAR 14486-5 LOINC SPEC GRAVITY >=1.030 1.000-1.030 5811-5 LOINC A PH 6.0 5.0 - 6.5 5803-2 LOINC LEUK EST NEGATIVE NEGATIVE 5799-2 LOINC NITRATE NEGATIVE NEGATIVE PROTEIN NEGATIVE NEGATIVE 5804-0 LOINC GLUCOSE NEGATIVE NEGATIVE 01322-8 LOINC KETONES TRACE NEGATIVE 82698-8 LOINC A UROBILINOGEN 0.2 NEGATIVE 5818-0 LOINC BILIRUBIN NEGATIVE NEGATIVE 90709-4 LOINC BLOOD NEGATIVE NEGATIVE 85883-2 LOINC WBC 0-2 0 - 2 69697-1 LOINC RBC 0-2 0 - 2 25030-3 LOINC EPITHELIAL MODERATE RARE-FEW 15066-6 LOINC A BACTERIA FEW NONE SEEN 85409-2 LOINC MUCUS MODERATE NONE SEEN 8247-9 LOINC A YEAST NOT PRESENT NOT PRESENT 58231-1 LOINC CASTS NONE SEEN 22387-4 LOINC CRYSTALS NONE SEEN 76667-4 LOINC CULTURE? NO 8251-1 LOINC DIAGNOSIS ABN LAB RESU US GALLBLADDER - Completed: 11/06/2023 05:33 LOINC: EXAM DESCRIPTION: US GALLBLADDER REASON FOR STUDY: PT COMPLAINS OF INTERMITTENT EPIGASTRIC PAIN X 5 HOURS. STATES SHE VOMITTED BILE. 16 WKS , STATES SHE HAD NORMAL ULTRASOUND AT 9 WKS GESTATION AT [facility] [place], LMP=07/21/23 EDC=04/16/24, Duration: X 5 HOURS TECHNIQUE: Ultrasound of the gallbladder was performed with grayscale imaging. COMPARISON: None FINDINGS: GALLBLADDER: The gallbladder is normally distended. There is minimal echogenic material within the dependent gallbladder, suggesting sludge and or tiny stones. There is no pericholecystic fluid. No positive sonographic Nunn sign reported by the technologist. BILIARY SYSTEM: The visualized portion of the common bile duct measures 3 mm. The distal duct is not visualized on this study. LIVER: The visualized portion of the liver appears unremarkable. OTHER: No other significant findings. IMPRESSION: 1. Echogenic material representing sludge and/or tiny stones in the dependent gallbladder. No wall thickening or pericholecystic fluid. 2. Visualized common bile duct measures 3 mm. THIS IS AN ELECTRONICALLY VERIFIED FINAL REPORT 11/06/2023 5:31 AM - Electronically signed by Lucretia Issa M.D. TW: DARRYN Report ID: [id number] Reading Location: [id number] US OB LIMITED - Completed: 0 11/06/2023 05:30 LOINC: EXAM DESCRIPTION: US OB LIMITED REASON FOR STUDY: PT COMPLAINS OF INTERMITTENT EPIGASTRIC PAIN X 5 HOURS. STATES SHE VOMITTED BILE. 16 WKS , STATES SHE HAD NORMAL ULTRASOUND AT 9 WKS GESTATION AT [facility], LMP=07/21/23 EDC=04/16/24, Duration: X 5 HOURS Beta-hCG: None available TECHNIQUE: Transabdominal images acquired of the pelvis. COMPARISON: None available FINDINGS: Clinical gestational age: Based on LMP of 07/21/2023, 15 weeks 3 days Clinical estimated Due Date: 04/26/2024 Placenta: Anterior. The inferior placental tip is approximately 3 cm from the cervical os. Attention at follow-up recommended. Biometric measurements are as follows: Biparietal diameter 3.71 cm, 17 weeks 3 Head circumference 13.1 cm, 16 weeks 6 days Abdominal circumference 10.83 cm, 16 weeks 6 days Femur length 2.26 cm 16 weeks 6 days heart rate: 155 bpm Gestational age by this ultrasound: 17 weeks 0 days YANETH by this ultrasound: 04/15/2024 The cervical length is measured at 3.2 cm, though suboptimally evaluated on this study. IMPRESSION: Single living intrauterine . Gestational age is 17 weeks 0 days by crown-rump length, giving an estimated date of delivery of 04/15/2024. This corresponds well with the ultrasound estimated date of confinement of 04/16/2024 obtained on outside study per the clinical history above. heart rate 155 beats per minute. weight 168 g +/-25 g which falls into the greater than 98th percentile based on the LMP dates above. Cervical length measured at 3.2 cm, suboptimally visualized on this study. Inferior placental tip is approximately 3 cm from the cervical os. Attention on short interval follow-up ultrasound recommended. THIS IS AN ELECTRONICALLY VERIFIED FINAL REPORT 11/06/2023 5:27 AM - Electronically signed by Lucretia Issa M.D. TW: DARRYN Report ID: [id number] Reading Location: [id number] Social History Type Status Start Date End Date Code Code Syst em Smoking History Never smoker (Never Smoked) 209319467 SNOMED CT Sex Female Assessment You had [...] 6002 SNOMED-CT UNSPECIFIED ABDOMINAL PAIN active 215 42489 SNOMED-CT Allergies and Adverse Reactions Allergy Substance Reaction Severity Start Date Concern Status Co de Code System AMOXICILLIN Active 723 RxNorm TERBUTALINE Active 63539 RxNorm Plan of Treatment Stress Test Treadmill 01/21/2025 Equipment Service Associate Consult 04/27/2025 Encounters Encounter Diagnosis Start Date Code Code Sys tem Diseases of the digestive sy stem complicating , second trimester 11/05/2023 SNOMED-CT Personal Care Team Section Performer Name Performer Role Active Date Inactive Da te KRAIG ESTRADA PCP - Primary care physician 2021-10 0-24 2024-09-12 KRAIG ESTRADA PCP - Primary care physician -10 2024-09-12 KRAIG ESTRADA PCP - Primary care physician 2023-0 -10 2024-09-12 KRAIG ESTRADA PCP - Primary care physician -16 2024-09-12 Hong Abdi PCP - Primary care physician 2024-09-12 Imaging Narrative Notes
--- OUTSIDE RECORDS SUMMARY | 2025-09-16 17:51 | XMS_ITS | Continuity of Care Document ---
Author Organization [facility] Address [address] [place] [address] [place] [address] Care Team Providers Care Regional Sales Representative Name Role Phone CARLOS ESTRADA Primary Care Provider [phone] Assessment Encounter Date Assessment Date Assessment LastModified by Organization Details LastModified Time 07/21/2025 07/21/2025 Patient is 32___weeks . Discussed plan. Not available 07/21/2025 12:29:30 Plan of Treatment Reminders Order Date Submit Date Provider Last Modified By Organization Details Last Modified Time Details Appointments None recorded. Lab urinalysis , dipstick 2024 025 [email or web address] [facility], [address], [address], [place], [address], 11:04:11 Referral None recorded. Procedures None recorded. Surgeries None recorded. Imaging None recorded. Medication Orders None recorded. Patient TargetsNo targets recorded. Patient InstructionsNo instructions recorded. Reason for Referral None Reported. Results Created Date Observation Date Name Description Value Unit Range Abnormal Flag Note LastModifiedBy Organization Detail LastModifiedTime 03/06/2003/06/2025 [UNIT Y] ANEUP LOIDY NIPT fraction 5.7% normal Not Available Medina hernandez [address], [place], [address], 03/06/2025 03:58:26 03/06/20 25 03/06/2025 [UNIT Y] ANEUP LOIDY NIPT sex chromosome aneuploidy NOT DETECT ED normal Not Available [facility] [address], [place], [address], 03/06/2025 03:58:26 03/06/20 25 03/06/2025 [UNIT Y] ANEUP LOIDY NIPT monosomy X LOW RISK <1 in 10,000 normal Not Available [facility] [address], [place], [address], 03/06/2025 03:58:26 03/06/20 25 03/06/2025 [UNIT Y] ANEUP LOIDY NIPT trisomy 13 LOW RISK <1 in 10,000 normal Not Available [facility] [address], [place], [address], 03/06/2025 03:58:26 03/06/20 25 03/06/2025 [UNIT Y] ANEUP LOIDY NIPT trisomy 18 LOW RISK <1 in 10,000 normal Not Available [facility] [address], [place], [address], 03/06/2025 03:58:26 03/06/20 25 03/06/2025 [UNIT Y] ANEUP LOIDY NIPT trisomy 21 LOW RISK <1 in 10,000 normal Not Available [facility] [address], [place], [address], 03/06/2025 03:58:26 03/06/20 25 03/06/2025 [UNIT Y] ANEUP LOIDY NIPT sex FEMALE normal Not Available [facility] [address], [place], [address], 03/06/2025 03:58:26 03/06/20 25 03/06/2025 [UNIT Y] ANEUP LOIDY NIPT gestation SINGLE TON normal Not Available [facility] [address], [place], [address], 03/06/2025 03:58:26 03/06/20 25 03/06/2025 [UNIT Y] ANEUP KIANA NIPT for detailed report, see pdf See PDF normal Not Available [facility] [address], [place], [address], 03/06/2025 03:58:26 03/02/2003/02/2025 CULTU RE: URINE result report SEE RESULT S BELOW Test: Cultu re: Urine Speci men Sourc e: Urine - Clean Catch Speci men Type: Urine Speci men Date: 1455 Resul t Date: 2138 Resul t Statu s: Final resul t Abnor mal: No Resul ting Lab: [facility] [address] [facility] [address] Tel: CULTU RE ----- ----- ----- --- No growt h in 1 day (dete ction level of 10,00 0 colon ies / ml.) Not Available [facility] (Lab) [address] [facility], [place], [address], 03/03/2025 22:42:27 03/12/2003/12/2025 CULTU RE: URINE result report SEE RESULT S BELOW Test: Cultu re: Urine Speci men Sourc e: Urine - Clean Catch Speci men Type: Urine Speci men Date: 2024 1600 Resul t Date: 2024 0610 Resul t Statu s: Final resul t Abnor mal: No Resul ting Lab: [facility] [address] [facility] [address] Tel: CULTU RE ----- ----- ----- --- No growt h in 1 day (dete ction level of 10,00 0 colon ies / ml.) Not Available [facility] (Lab) [address] [facility], [place], [address], 03/14/2025 07:15:03 03/12/2003/12/2025 urina lysis , dipst ick Leukocytes ++ Not Available [address], [place], [address], 03/12/2025 16:45:06 03/12/20 25 03/12/2025 urina lysis , dipst ick Protein + Not Available [facility] [address], [place], [address], 03/12/2025 16:45:06 03/12/20 25 03/12/2025 urina lysis , dipst ick pH 5 Not Available [facility] [address], [place], [address], 03/12/2025 16:45:06 03/12/20 25 03/12/2025 urina lysis , dipst ick Blood trace Not Available [facility] [address], [place], [address], 03/12/2025 16:45:06 03/12/20 25 03/12/2025 urina lysis , dipst ick Specific Bonnie 1.015 Not Available [facility] [address], [place], [address], 03/12/2025 16:45:06 03/12/20 25 03/12/2025 urina lysis , dipst ick Ketone +++ Not Available [facility] [address], [place], [address], 03/12/2025 16:45:06 03/31/20 25 03/31/2025 TSH, REFLE X FREE T4 TSH 0.42 uIU/m L 0.30-5 .33 Not Available [facility] (Lab) [address], [place], [address], 04/01/2025 03:05:12 03/31/20 25 03/31/2025 CULTU RE: URINE result report SEE RESULT S BELOW Test: Cultu re: Urine Speci men Sourc e: Urine Voide d Speci men Type: Urine Speci men Date: 1710 Resul t Date: 2256 Resul t Statu s: Final resul t Abnor mal: No Resul ting Lab: [facility] [address] [facility] [address] Tel: CULTU RE ----- ----- ----- --- Cultu re resul t (>=3 organ isms prese nt) indic ates possi ble conta minat ion. Repea t cultu re if sympt oms indic ate. Not Available [facility] (Lab) [address], [place], [address], 04/01/2025 23:59:19 03/31/20 25 03/31/2025 urina lysis , dipst ick Leukocytes +1 Not Available [facility] [address], [place], [address], 03/31/2025 09:23:13 03/31/20 25 03/31/2025 urina lysis , dipst ick Nitrite normal Not Available [facility] [address], [place], [address], 03/31/2025 09:23:13 03/31/20 25 03/31/2025 urina lysis , dipst ick Urobilinogen normal Not Available [facility] david [address], [place], [address], 03/31/2025 09:23:13 03/31/20 25 03/31/2025 urina lysis , dipst ick Protein trace Not Available [facility] [address], [place], [address], 03/31/2025 09:23:13 03/31/20 25 03/31/2025 urina lysis , dipst ick pH 5 Not Available [facility] [address], [place], [address], 03/31/2025 09:23:13 03/31/20 25 03/31/2025 urina lysis , dipst ick Specific Bonnie 1.020 Not Available [facility] nita [address], [place], [address], 03/31/2025 09:23:13 03/31/20 25 03/31/2025 urina lysis , dipst ick Ketone normal Not Available [facility] [address], [place], [address], 03/31/2025 09:23:13 03/31/20 25 03/31/2025 urina lysis , dipst ick Bilirubin normal Not Available [facility] [address], [place], [address], 03/31/2025 09:23:13 03/31/20 25 03/31/2025 urina lysis , dipst ick Glucose normal Not Available [facility] [address], [place], [address], 03/31/2025 09:23:13 03/31/20 25 03/31/2025 urina lysis , dipst ick Appearance normal Not Available [facility] [address], [place], [address], 03/31/2025 09:23:13 03/31/20 25 03/31/2025 urina lysis , dipst ick Color normal Not Available [facility] [address], [place], [address], 03/31/2025 09:23:13 04/01/20 25 04/01/2025 WOMEN 'S HEALT H SWAB PLUS, DENIS bacterial vaginosis (bv), tma Negati ve negati ve Not Available [facility] (Lab) [address], [place], [address], 04/02/2025 14:08:45 04/01/20 25 04/01/2025 [facility], DENIS mekhi species, tma Negati ve negati ve Not Available [facility] (Lab) [address] [place], [address], 04/02/2025 14:08:45 04/01/20 25 04/01/2025 [facility], DENIS mekhi glabrata, tma Negati ve negati ve Not Available [facility] (Lab) [address] [place], [address], 04/02/2025 14:08:45 04/01/20 25 04/01/2025 [facility] SW[facility]US, DENIS trichomonas vaginalis, tma Negati ve negati ve Not Available [facility] (Lab) [address] [place], [address], 04/02/2025 14:08:45 04/01/20 25 04/01/2025 [facility] SWAB [facility]US, DENIS chlamydia trachomatis, PCR Negati ve negati ve Not Available [facility] (Lab) [address] [place], [address], 04/02/2025 14:08:45 04/01/20 25 04/01/2025 WOMEN 'S [...] [facility] (Lab) [address] , [place], [address], 04/02/2025 14:08:45 04/22/2004/22/2025 CULTU RE: URINE result report SEE RESULT S BELOW Test: Cultu re: Urine Speci men Sourc e: Urine Voide d Speci men Type: Urine Speci men Date: 2024 1314 Resul t Date: 2024 0322 Resul t Statu s: Final resul t Abnor mal: No Resul ting Lab: [facility] [address] [facility] [address] Tel: CULTU RE ----- ----- ----- --- No growt h in 1 day (dete ction level of 10,00 0 colon ies / ml.) Not Available [facility] (Lab) [address] [place], [address], 04/24/2025 04:28:01 04/22/2004/22/2025 urina lysis , dipst ick Leukocytes + Not Available [facility] [address], [place], [address], 04/22/2025 10:01:51 04/22/20 25 04/22/2025 urina lysis , dipst ick Protein + Not Available [facility] [address], [place], [address], 04/22/2025 10:01:51 04/22/20 25 04/22/2025 urina lysis , dipst ick pH 8 Not Available [facility] [address], [place], [address], 04/22/2025 10:01:51 04/22/20 25 04/22/2025 urina lysis , dipst ick Blood + Not Available [facility] [address], [place], [address], 04/22/2025 10:01:51 04/22/20 25 04/22/2025 urina lysis , dipst ick Specific Bonnie 1.010 Not Available [facility] [address], [place], [address], 04/22/2025 10:01:51 04/22/20 25 04/22/2025 urina lysis , dipst ick Ketone + Not Available [facility] [address], [place], [address], 04/22/2025 10:01:51 06/23/20 25 06/23/2025 HEMAT OCRIT (HCT) HCT 35.6 % (based on docume nted legal sex) 34.0-4 5.0 Not Available [facility] (Lab) [address] [place], [address], 06/24/2025 11:45:32 06/23/20 25 06/23/2025 HEMOG LOBIN (HGB) HGB 11.1 g/dL (based on docume nted legal sex) 11.6-1 5.4 low Not Available [facility] (Lab) [address] [facility], [place], [address], 06/24/2025 11:45:32 06/23/20 25 06/23/2025 GTT - GESTA ROLAND L SCREAngela N, ACOG OB glucose, 1 hour screen 180 mg/dL 70-135 high Not Available [facility] (Lab) [address] [place], [address], 06/24/2025 11:45:33 06/23/20 25 06/23/2025 HIV 1/2 ANTIG EN/AN TIBOD Y, REFLE X CONFI RMATI ON HIV antigen/anti body Nonrea ctive nonrea ctive HIV-1 antig en and HIV-1 /HIV- 2 antib odies were not detec greg. No labor atory evide nce of HIV infec tion. Not Available [facility] (Lab) [address] [facility], [place], [address], 06/24/2025 11:45:33 06/23/20 25 06/23/2025 RPR SCREE N, REFLE X TITER /CONF IRMAT ION RPR qualitative Nonrea ctive nonrea ctive Not Available [facility] (Lab) [address] [facility], [place], [address], 06/24/2025 11:45:34 07/21/20 25 07/21/2025 CULTU RE: URINE result report SEE RESULT S BELOW Test: Cultu re: Urine Speci men Sourc e: Urine - Clean Catch Speci men Type: Urine Speci men Date: 2024 1024 Resul t Date: 2024 0252 Resul t Statu s: Final resul t Abnor mal: No Resul ting Lab: [facility] [address] [facility] [address] Tel: CULTU RE ----- ----- ----- --- No growt h in 1 day (dete ction level of 10,00 0 colon ies / ml.) Not Available [facility] (Lab) [address] [facility], [place], [address], 07/23/2025 03:57:01 07/21/20 25 07/21/2025 urina lysis , dipst ick Leukocytes ++ Not Available [address], [place], [address], 07/21/2025 11:03:04 07/21/20 25 07/21/2025 urina lysis , dipst ick Nitrite neg Not Available [address], [place], [address], 07/21/2025 11:03:04 07/21/20 25 07/21/2025 urina lysis , dipst ick Urobilinogen neg Not Available [facility] david [address], [place], [address], 07/21/2025 11:03:04 07/21/20 25 07/21/2025 urina lysis , dipst ick Protein + Not Available [facility] [address], [place], [address], 07/21/2025 11:03:04 07/21/20 25 07/21/2025 urina lysis , dipst ick pH 5 Not Available [facility] [address], [place], [address], 07/21/2025 11:03:04 07/21/20 25 07/21/2025 urina lysis , dipst ick Specific Bonnie 1.030 Not Available [facility] nita [address], [place], [address], 07/21/2025 11:03:04 07/21/20 25 07/21/2025 urina lysis , dipst ick Ketone +++ Not Available [facility] [address], [place], [address], 07/21/2025 11:03:04 07/21/20 25 07/21/2025 urina lysis , dipst ick Bilirubin neg Not Available [facility] [address], [place], [address], 07/21/2025 11:03:04 07/21/20 25 07/21/2025 urina lysis , dipst ick Glucose neg Not Available [facility] [address], [place], [address], 07/21/2025 11:03:04 07/21/20 25 07/21/2025 urina lysis , dipst ick Appearance cloudy Not Available [facility] [address], [place], [address], 07/21/2025 11:03:04 07/21/20 25 07/21/2025 urina lysis , dipst ick Color dark Not Available [facility] [address], [place], [address], 07/21/2025 11:03:04 03/02/20 25 03/02/2025 US, obste tric, nucha l trans lucen cy No observ ation record ed. [email or web address] [facility] [address], [place], [address], 03/02/2025 13:35:30 03/02/20 25 03/02/2025 US, obste tric, nucha l trans lucen cy No observ ation record ed. [email or web address] Esha [address], [place], [address], 03/03/2025 14:08:39 03/08/2003/08/2025 US, obste tric, 1st trime ster No observ ation record ed. [email or web address] [facility] [address], [place], [address], 03/08/2025 12:22:22 03/08/20 25 03/08/2025 US, obste tric, 1st trime ster No observ ation record ed. [email or web address] Esha [address], [place], [address], 03/10/2025 15:03:13 04/01/20 25 03/24/2025 qamar r monit or No observ ation record ed. [email or web address] [address], [place], [address], 04/08/2025 12:36:45 04/01/20 25 03/22/2025 qamar r monit or No observ ation record ed. [email or web address] [facility] (Pulmonary) [address] [facility] [address], [place], [address], 04/06/2025 08:59:34 04/20/20 25 04/20/2025 US, obste tric, limit ed No observ ation record ed. [email or web address] [facility] [address], [place], [address], 04/20/2025 17:39:30 04/20/20 25 04/20/2025 US, obste tric, follo w-up No observ ation record ed. Esha [address], [place], [address], 04/23/2025 08:32:54 04/28/20 25 04/28/2025 US, obste tric, 2nd or 3rd trime ster No observ ation record ed. [email or web address] [facility] [address], [place], [address], 04/28/2025 17:48:42 04/28/20 25 04/28/2025 US, obste tric, 2nd or 3rd trime ster No observ ation record ed. [email or web address] [address] [address], [place], [address], 05/04/2025 22:16:11 05/07/2005/07/2025 non-s tress test No observ ation record ed. [facility] [address] [facility] [address], [place], [address], 05/28/2025 13:33:54 05/21/20 25 05/21/2025 CT, head + brain , w/o contr ast No observ ation record ed. [email or web address] [facility] [address] [facility] [address], [place], [address], 05/24/2025 13:48:57 05/28/20 05/28/2025 US, obste tric, follo w-up No observ ation record ed. [email or web address] [facility] [address], [place], [address], 05/28/2025 17:32:34 05/28/20 25 05/28/2025 US, obste tric, follo w-up No observ ation record ed. [email or web address] [address]sha [address], [place], [address], 06/01/2025 15:13:13 06/08/20 25 06/07/2025 US, obste tric, follo w-up No observ ation record ed. [email or web address] [facility] [address] [facility], [place], [address], 06/15/2025 10:53:46 07/07/20 25 07/07/2025 US, obste tric, follo w-up No observ ation record ed. [email or web address] [facility] [address], [place], [address], 07/07/2025 13:18:01 07/07/20 25 07/07/2025 US, obste tric, follo w-up No observ ation record ed. [email or web address] Esha [address], [place], [address], 07/07/2025 11:29:37 08/04/20 25 08/04/2025 US, obste tric, follo w-up No observ ation record ed. [email or web address] [facility] [address], [place], [address], 08/04/2025 15:08:50 08/04/20 25 08/04/2025 US, obste tric, follo w-up No observ ation record ed. [email or web address] [address] [address], [place], [address], 08/06/2025 10:41:50 08/11/2008/11/2025 non-s tress test No observ ation record ed. [email or web address] [facility] [address], [place], [address], 08/11/2025 17:37:52 08/11/20 non-s tress test No observ ation record ed. [email or web address] [facility] [address], [place], [address], 08/11/2025 17:38:11 08/15/2008/15/2025 non-s tress test No observ ation record ed. [address] [facility], [place], [address], 08/21/2025 10:18:57 08/15/2008/15/2025 US, obste tric, bioph ysica l profi le No observ ation record ed. [address] [facility], [place], [address], 08/17/2025 10:50:53 08/18/2008/18/2025 US, obste tric, bioph ysica l profi le + non-s tress test No observ ation record ed. [email or web address] [facility] [address], [place], [address], 08/18/2025 10:21:39 08/18/2008/18/2025 US, obste tric, bioph ysica l profi le + non-s tress test No observ ation record ed. [email or web address] [address]sha [address], [place], [address], 08/18/2025 10:35:44 08/18/2008/18/2025 non-s tress test No observ ation record ed. [email or web address] [facility] [address], [place], [address], 08/18/2025 17:34:03 08/18/20 non-s tress test No observ ation record ed. [address], [place], [address], 08/18/2025 16:06:09 08/25/2008/25/2025 US, obste tric, bioph ysica l profi le + non-s tress test No observ ation record ed. [email or web address] [facility] [address], [place], [address], 08/25/2025 18:52:06 08/25/2008/25/2025 US, obste tric, follo w-up No observ ation record ed. [email or web address] Esha [address], [place], [address], 08/25/2025 15:47:28 08/25/20 25 08/25/2025 non-s tress test No observ ation record ed. [address], [place], [address], 08/25/2025 18:12:15 08/25/20 non-s tress test No observ ation record ed. [address], [place], [address], 08/25/2025 17:21:19 08/30/20 25 08/30/2025 non-s tress test No observ ation record ed. [address] [facility] [address], [place], [address], 09/15/2025 15:26:49 09/01/20 25 09/01/2025 non-s tress test No observ ation record ed. [facility] [address] [facility] [address], [place], [address], 09/13/2025 11:32:22 09/01/20 25 09/01/2025 US, obste tric No observ ation record ed. [address], [place], [address], 09/02/2025 15:56:01 09/01/20 25 09/01/2025 non-s tress test No observ ation record ed. [address], [place], [address], 09/02/2025 14:32:38 09/16/2009/16/2025 imagi ng/di agnos tic resul t No observ ation record ed. [address], [place], [address], 09/16/2025 18:07:05 Result Notes None recorded. Problems Name Problem SNOMED Code Status Onset Date Resolution Date Notes Provider Name and Address Organization Details Recorded Time Hypereme sis 240040369 Completed phenerga n now prn Asia arias [facility] 2 16:43:51 Anxiety in pregnanc y 5809002514 9109 Completed will continue to monitor Asia Luis arias [facility] 2 16:43:51 Past pregnanc y history of gestatio nal diabetes mellitus 416882303 Completed Early 1 hr GTT @ 20wks 11/03 APPT Asiaamadeo arias [facility] 2 16:43:51 Spinal muscular atrophy 9650595 Completed Carrier - Not in contact with FOB. Asia arias [facility] 2 16:43:51 Anxiety 50287902 Completed prozac Karina Burroughs [facility], [facility] 4 11:00:46 Nausea 684437755 Completed d/c zofran pump 11/08 per pt request Karina ramos, [facility] 4 11:00:46 Postpart um hemorrha ge [id number] Completed 2017 with d&c Karina ramos [facility] 4 11:00:46 Normal pregnanc y in multigra jessy 4096173842 28137 Completed 201907/05/2021 Encounte r for supervis ion of other normal pregnanc y, 3rd trimeste r;Record ed Elsewher e: No Locat ion: [facility] S ource: EHR [employer] yvrose: N Dennis ce ID: 0001 Gigi lable Time: 10:45:00 AM Karina ramos [facility] 10:15:27 Gestatio n period, 37 weeks 97185338 Completed 201907/05/2021 37 weeks gestatio n of pregnanc y;Record ed Elsewher e: No Locat ion: [facility] S ource: EHR [employer] yvrose: N Dennis ce ID: 0001 Gigi lable Time: 09:00:00 AM Karina ramos, [facility] 10:15:[address] Concept Completed 201907/05/2021 Matern care for abnlt fetl hrt rate or rhym, 3rd tri, unsp;Rec orded Elsewher e: No Locat ion: [facility] S ource: EHR [employer] yvrose: N Dennis ce ID: [id number] Gigi lable Time: 08:45:00 AM Karina ramos [facility] 10:15:29 Gestatio nal diabetes mellitus 91138109 Completed 201907/05/2021 Gestatio nal diabetes mellitus in pregnanc y, diet controll ed;Recor ded Elsewher e: No Locat ion: [facility] S ource: EHR [employer] yvrose: N Practi ce ID: [id number] Gigi lable Time: 11:45:00 AM Karina Burroughs null, [facility] 10:15:25 Gestatio n period, 38 weeks 30920807 Completed 201907/05/2021 38 weeks gestatio n of pregnanc y;Record ed Elsewher e: No Locat ion: Jaelyn castillo [facility] S ource: EHR [employer] yvrose: N Practi ce ID: [id number] Gigi lable Time: 11:30:00 AM Karina Burroughs null, [facility] 10:15:13 Amenorrh ea 62826996 Completed 202007/10/2021 Tammi Jones null, [facility] 13:08:35 Pregnanc y 67833125 Completed 202003/29/2022 Emma Dykes [facility], [facility] 5 12:28:48 Pregnanc y 44017398 Completed 202304/22/2024 Emma Dykes null, [facility] 5 12:28:48 Headache [id number] Active 2023 Karnia Burroughs null, [facility] 5 16:19:28 Pregnanc y 38134318 Completed 202309/14/2025 Emma Dykes null, [facility] 5 12:28:48 Uncompli cated moderate persiste nt asthma [id number] Completed 2024 julio Bradley MD [address], [place], [address], [place] [facility] 5 13:08:36 Anxiety 94598814 Completed 2024 sertrali ne started 03/02/25 changed to prozac 10 on Shawn Bradley MD [address], [place], [address], [facility] 5 17:05:48 Nausea and vomiting 35273331 Completed 2024 Shawn Bradley MD [address], [place], [address], [facility] 5 13:20:27 Placenta circumva llata 7447677 Completed 2024 32wk [facility] 09:44:35 Frequent headache [id number] Completed [address] [facility] 05/21, discharg e 05/23 [facility] referral faxed 05/24 [facility] consult pending per KAJAL Pittman [facility]- Neuro [facility] unable to see [...] than 2-3 times a week. Ryann ramos [facility] 5 10:55:26 Abnormal placenta affectin g manageme nt of mother [id number] Completed 2024 [facility] serial growth Ryann ramos [facility] 5 10:46:25 Iron deficien cy anemia 10941594 Completed 2024 [facility] tx venofer 200mg x1 HGB 10.6 Ryann ramos [facility] 5 15:21:25 Gestatio nal diabetes mellitus [id number] Completed 2024 checking bs QID - ruled in GDM Referral faxed to [facility] 07/07 Ryann Matthew [facility] 14:36:52 Notes:Order faxed to [facility] access 08/10 for PICC line, and home health already caring for pt. Vladimir RN at [phone] Problem Notes None recorded. Procedures Surgical History Date Name Laterality Status Provider Name and Address Organization Details Recorded Time SALPINGECTOMY, LAPAROSCOPIC (SURG) completed Not Available [facility] 09/06/2025 11:19:17 025 Date of Last Pap Smear completed Karina Burroughs [facility] 01/28/2025 11:19:42 024 Nexplanon Removal completed Shawn Bradley MD [address], [place], [address], [facility] 08/05/2024 15:09:58 024 Control Implant Insertion completed Anju Mcnamara CNM [address], [place], [address], [facility] 05/08/2024 17:59:34 024 cholecystectomy completed Karina Burroughs [facility] 03/31/2025 09:18:57 018 Dilation and Curettage completed Karina Burroughs [facility] 07/05/2021 10:17:50 Imaging Results None recorded. Procedure Notes None recorded. Medical Equipment None Reported. Allergies Allergen ID Allergen Name Allergen Category Reaction Reaction Severity Criticality Documentation Date Start Date Code Code System Note Provider Name and Address Organization Details Recorded Time 02410 terbutali ne medicatio n anaphylax is Not available Not available 01/27/20252021 49683 RxNorm Karina ramos [facility] 16:19:27 05898 amoxicill in medicatio n Not available Not available Not available 09/10/2025 723 RxNorm Not Available gene - External Data Service - prod 16:39:37 99370 terbinafi ne medicatio n anaphylax is Not available [facility] 09/10/20252024 98328 RxNorm Not Available gene - External Data [...] Prescrib ed Elsewher e: Yes Loca tion: [facility] odify By: prabhjot Lee r DateTime [...] n (supplie d by office) insert lot [id number] Exp 01/2026 Not Available Not Available Not Available 28 mg iron-800 mcg tablet 07/05 completed Prescrib ed Elsewher e: Yes Loca tion: [facility] odify By: prabhjot Encounbinta r DateTime : 01/14/20 10:45:00 AM Not Available Not Available Not Available lidocaine 5 % topical ointment APPLY OINTMENT EXTERNAL LY TO RIBS THREE TIMES DAILY NEEDED 01/14 completed Not Available Not Available Not Available 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 07/21/2025 09:35:09 Social History Question Answer Notes LastModified by Organizat ion Details LastModified Time Tobacco Smoking Status Former Smoker Karina ramos, [facility] 07/05/2021 09:06:21 If You Are , What Was Your Level Of Alcohol Consumption Prior To ? Occasional [email or web address] Information not available 03/31/2025 Are You Blind Or Do You Have Difficulty Seeing? No [email or web address] Information not available 07/05/2021 What Is Your Level Of Caffeine Consumption? Heavy [email or web address] Information not available 07/05/2021 In The 14 Days Before Symptom Onset, Have You Had Close Contact With A Laboratory-confir med COVID-19 While That Case Was Ill? No [email or web address] Information not available 07/05/2021 In The 14 Days Before Symptom Onset, Have You Had Close Contact With A Person Who Is Under Investigation For COVID-19 While That Person Was Ill? No [email or web address] Information not available 07/05/2021 Have You Been To An Area Known To Be High Risk For COVID-19? No [email or web address] Information not available 07/05/2021 Are You Deaf Or Do You Have Serious Difficulty Hearing? No Information not available 07/05/2021 What Type Of Diet Are You Following? REGULAR [email or web address] Information not available 07/05/2021 Which Illicit Or Recreational Drugs Have You Used? Marijuana [email or web address] Information not available 07/05/2021 Have You Ever Been Counseled For Unhealthy Alcohol Use? No [email or web address] Information not available 07/05/2021 Do You Use Your Seat Belt Or Car Seat Routinely? Yes [email or web address] Information not available 07/05/2021 Do You Have Smoke And Carbon Monoxide Detectors In Your Home? Yes [email or web address] Information not available 07/05/2021 Do You Use Sunscreen Routinely? Yes [email or web address] Information not available 07/05/2021 Has Tobacco Cessation Counseling Been Provided? No [email or web address] Information not available 07/05/2021 Have You Used IV Drugs? No [email or web address] Information not available 07/05/2021 Do You Have Difficulty Walking Or Climbing Stairs? No [email or web address] Information not available 12/06/2021 Sex: Unknown Functional Status Question Answer Note LastModified by Organizat ion Details LastModified Time Do you use any illicit or recreational drugs? Yes [email or web address] Information not available 07/05/2021 Do you or have you ever used any other forms of tobacco or nicotine? Yes [email or web address] Information not available 07/05/2021 What is your level of alcohol consumption? None [email or web address] Information not available 03/31/2025 Do you or have you ever used smokeless tobacco? Never used smokeless tobacco [email or web address] Information not available 07/05/2021 Are you able to walk independently without assistance or assistive devices? YESWOREST [email or web address] Information not available 07/05/2021 Are you able to care for yourself independently? Yes [email or web address] Information not available 12/06/2021 Do you have difficulty dressing, bathing, grooming, or toileting? No Information not available 12/06/2021 Do you or have you ever used e-cigarettes or vape? Current user of electronic cigarettes [email or web address] Information not available 07/05/2021 What is your exercise level? Occasional [email or web address] Information not available 07/05/2021 Mental Status Question Answer Note LastModified by Organization D etails LastModified Time Do you feel stressed (tense, restless, nervous, or anxious, or unable to sleep at night)? [id number] [email or web address] Information not available 07/05/2021 Family History Relationship Description Onset Age of this Age Resolved Age Notes LastModified by Organization Details LastModified Time Father No current problems or disability [email or web address] Not available 05/2021 09:06:31 Mother No current problems or disability [email or web address] Not available 05/2021 09:06:31 Medical History Condition [...] ICD10 Code Diagnosis IMO Codes Diagnosis Note [id number] Shawn Bradley MD [facility] [address],[place] [address] 06/23/2025 13:43:13 06/25/2025 17:52:18 [id number] [facility] [address],[place] [address] 06/23/2025 13:43:28 06/23/2025 15:58:03 Heartburn 30027974 R12 28943 Gestation period, 28 weeks 65693430 Z3A.28 2923239 [id number] Shawn Bradley MD [facility] [address] [place] [address] 07/07/2025 10:14:22 07/07/2025 11:00:23 Anomaly of placenta 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 O43.103 Z3A.30 7286124 [id number] [facility] [address] [place] [address] 07/07/2025 10:14:33 07/07/2025 11:38:54 Gestation period, 30 weeks 67244157 Z3A.30 8943711 cont pnv Nausea 391566328 R11.0 91252 Gestationa l diabetes mellitus 39908095 O24.419 28427689 [id number] [facility] [address] [place] [address] 07/21/2025 09:28:54 07/21/2025 12:36:06 Pain in pelvis 49124668 R10.2 778408 Gestation period, 32 weeks 8707202 Z3A.32 1210403 Health Concerns Section Related Observation LastModified by Organization Detai ls LastModified Time None Recorded Concern Status LastModified by Organization Details LastModified Time None Recorded Payers Encounter Date Sequence Insurance Name Policy Number Policy Roberts Covered Member ID Roberts Member ID Guarantor Name 07/21/[address] [facility] (MEDICAID HMO) [id number] Yuni Mejia [id number] Yuni Mejia Notes Date Note Type Note Provider Name and Address Organization Details Recorded Time 07/21/2025 text/html Generic HPI TemplateReported by Patient Anju Mcnamara CNM [address], [place], [address], [facility] 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 Status 03/02/20 25 1 B Positive 164 CLOSED Fetus Data First Name Last Name Admitted to NICU Weight (g) Sex Living Outcome Pediatric Complications Fetus ID Race Codes Race Delivery Type Ziah false 4025.62 9 F true Full Term 48198 Vaginal Delivery Problems Problem Notes SDH form completed 5GI consult Tachycardia Holter monitor 72 order- pt sent back on 03-27-25 Cardiology referral faxed per Dr Martínez office calling pt 04/21 to schedule consult scheduled 05/11 11:15AM Problem Name Start Date End Date Resolution Snomed Code Not e Uncomplicated moderate persistent asthma 03/02/2025 787209646 albuterol prn Abnormal placenta affecting management of mother 05/04/2025 30868354 [facility] serial grow th us Iron deficiency anemia 05/25/2025 24732134 [facility] tx [place] 200mg x1 HGB 10.6 Nausea and vomiting 03/02/2025 84498856 Anxiety 03/02/2025 16187372 sertralin e started 03/02/25 changed to prozac 10 on 5/16/259 Gestational diabetes mellitus 07/08/2025 89916303 checking bs QID - ruled in GDM Referral faxed to [facility] 07/07 Frequent headache 05/03/2025 [id number] [place] to [facility] 05/21, discharge 05/23 MF referral faxed 05/24 [facility] Neurology consult pending per KAJAL Pittman [facility]- Neuro SS unable to see pt due to insurance 05/[facility] 07/05/25 Level US & Consult (see MF consult zayas recommendations ) regimen prn Imitrex 50mg for acute migraine, vitamin B2 (Riboflavin) 400mg, Coenzyme q10 300mg and magnesium oxide 200 to 600mg daily. minimize use of Excedrin or Tylenol to no more than 2-3 times a week. 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 went to ed exam done cultures and rx sent, ?FM, await piling cutter results rfilled zofran, precautions and education f/u [...] Type Weight in lbs Pre/Post Dialysis Refused 168.769384183409 BP Diastolic BP Location Tested BP Systolic [...] Type Weight in lbs Pre/Post Dialysis Refused 169.433093603271 BP Diastolic BP Location Tested BP Systolic [...] Weight in lbs Pre/Post Dialysis Refused Weight 175.244697172222 BP Diastolic BP Location Tested BP Systolic BP Type 68 L arm 115 sitting Fetus Heart Rate Present Fetus Movement A Yes Comments migraines resolved, +FM seei ng [employer] us here reviewed wnl f/u 4 weeks [...] Weight in lbs Pre/Post Dialysis Refused Weight 182.792539592670 BP Diastolic BP Location Tested BP Systolic [...] Weight in lbs Pre/Post Dialysis Refused Weight 181.464479021427 BP Diastolic BP Location Tested BP Systolic BP Type 73 L arm 131 sitting Fetus Heart Rate Present Fetus Movement A Yes Comments viral URI testied neg at urg ent care, nausea resolved, efw 68%, +FM plan education and precautions f/u 2 weeks diagnosed GDM, 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 filters assembler, gave list reviewed protein vs carb Flowsheet Date 07/21/2025 Gibson Score Blood Edema Fundus Height Fundus Units Glucose Ketones Leukocytes Nitrite Labor Signs Protein Cervic Dilation Cervic Effacement Cervic Station Type Weight in lbs Pre/Post Dialysis Refused Weight 181.508044402551 BP Diastolic BP Location Tested BP Systolic BP Type 78 L arm 127 sitting Fetus Heart Rate Present A 150 Fetus Movement A Yes Comments rpt urine culture +FM review ed blood sugars, meets with filters assembler today, precautions and education f/u 2 weeks [...] Weight in lbs Pre/Post Dialysis Refused Weight 181.817199491476 BP Diastolic BP Location Tested BP Systolic [...] Weight in lbs Pre/Post Dialysis Refused Weight 183.395077019819 BP Diastolic BP Location Tested BP Systolic [...] Type Weight in lbs Pre/Post Dialysis Refused 184.106757359462 BP Diastolic BP Location Tested BP Systolic [...] Type Weight in lbs Pre/Post Dialysis Refused 184.301410648594 BP Diastolic BP Location Tested BP Systolic [...] Type Weight in lbs Pre/Post Dialysis Refused 184.376451588474 BP Diastolic BP Location Tested BP Systolic [...] Weight in lbs Pre/Post Dialysis Refused Weight 184.763353714786 BP Diastolic BP Location Tested BP Systolic [...] Present Fetus Movement Comments Flowsheet Date 09/14/2025 [place] Score Blood Edema Fundus Height Fundus Units Glucose Ketones Leukocytes Nitrite Labor Signs Protein Cervic Dilation Cervic Effacement Cervic Station Type Weight in lbs Pre/Post Dialysis Refused Weight 164.497489304459 BP Diastolic BP Location Tested BP Systolic [...]
--- OUTSIDE RECORDS SUMMARY | 2025-09-16 17:51 | XMS_ITS | Clinical Summary ---
Author Organization [email or web address] [address] [place] [address] Phone Care Team Providers Care School Psychological Examiner Name Role Phone Unavailable Primary Care Provider Unavailabl e Allergies No known active allergies Medications vits15/iron/fol ic/dss ( VIT 13-XBOD-UPPTX-D SS ORAL) Take by mouth. Activ e [...] on file Legal Sex Female 3:16 PM [employer] Gender Identity Not on file Sexual Orientation [...]
--- OUTSIDE RECORDS SUMMARY | 2025-09-16 17:51 | XMS_ITS | Continuity of Care Document ---
Author Organization [facility] [place], [facility] Address [address] [place] [address] [place] [address] Care Team Providers Care Corporate Paralegal Name Role Phone SEAN CARLOS Primary Care [...] Not Available [facility] [address], [place], [address], 03/06/2025 03:58:26 03/06/20 25 03/06/2025 [UNIT Y] ANEUP LOIDY NIPT sex chromosome aneuploidy NOT DETECT ED normal Not Available [facility] [address], [place], [address], 03/06/2025 03:58:26 03/06/20 25 03/06/2025 [UNIT Y] ANEUP LOIDY NIPT monosomy X LOW RISK <1 in 10,000 normal Not Available [facility] [address], [place], [address], 03/06/2025 03:58:26 03/06/20 25 03/06/2025 [UNIT Y] ANEUP LOIDY NIPT trisomy 13 LOW RISK <1 in 10,000 normal Not Available [facility] [address], [place], [address], 03/06/2025 03:58:26 03/06/20 25 03/06/2025 [UNIT Y] ANEUP LOIDY NIPT trisomy 18 LOW RISK <1 in 10,000 normal Not Available [facility] [address], [place], [address], 03/06/2025 03:58:26 03/06/20 25 03/06/2025 [UNIT Y] ANEUP LOIDY NIPT trisomy 21 LOW RISK <1 in 10,000 normal Not Available [facility] [address], [place], [address], 03/06/2025 03:58:26 03/06/20 25 03/06/2025 [UNIT Y] ANEUP LOIDY NIPT sex FEMALE normal Not Available [facility] [address], [place], [address], 03/06/2025 03:58:26 03/06/20 25 03/06/2025 [UNIT Y] ANEUP LOIDY NIPT gestation SINGLE TON normal Not Available [facility] [address], [place], [address], 03/06/2025 03:58:26 03/06/20 25 03/06/2025 [UNIT Y] ANEUP LOIDY NIPT for detailed report, see pdf See PDF normal Not Available [facility] [address], [place], [address], 03/06/2025 03:58:26 03/02/20 25 03/02/2025 CULTU RE: URINE result report SEE RESULT S BELOW Test: Cultu re: Urine Speci men Sourc e: Urine - Clean Catch Speci men Type: Urine Speci men Date: 025 1455 Resul t Date: 2138 Resul t Statu s: Final resul t Abnor mal: No Resul ting Lab: [facility] [address] [facility] [address] Tel: CULTU RE ----- ----- ----- --- No growt h in 1 day (dete ction level of 10,00 0 colon ies / ml.) Not Available [facility] (Lab) [address] [facility], [place], [address], 03/03/2025 22:42:27 03/12/2003/12/2025 CULTU RE: URINE result report SEE RESULT S BELOW Test: Cultu re: Urine Speci men Sourc e: Urine - Clean Catch Speci men Type: Urine Speci men Date: 2024 1600 Resul t Date: 2024 0610 Resul t Statu s: Final resul t Abnor mal: No Resul ting Lab: [facility] [address] [facility] [address] Tel: CULTU RE ----- ----- ----- --- No growt h in 1 day (dete ction level of 10,00 0 colon ies / ml.) Not Available [facility] (Lab) [address] [facility], [place], [address], 03/14/2025 07:15:03 03/12/2003/12/2025 urina lysis , dipst ick Leukocytes ++ Not Available [address], [place], [address], 03/12/2025 16:45:06 03/12/2003/12/2025 urina lysis , dipst ick Protein + Not Available [facility] [address], [place], [address], 03/12/2025 16:45:06 03/12/20 25 03/12/2025 urina lysis , dipst ick pH 5 Not Available [facility] [address], [place], [address], 03/12/2025 16:45:06 03/12/20 25 03/12/2025 urina lysis , dipst ick Blood trace Not Available [facility] [address], [place], [address], 03/12/2025 16:45:06 03/12/20 25 03/12/2025 urina lysis , dipst ick Specific [place] 1.015 Not Available [facility] [address], [place], [address], 03/12/2025 16:45:06 03/12/20 25 03/12/2025 urina lysis , dipst ick Ketone +++ Not Available [facility] [address], [place], [address], 03/12/2025 16:45:06 03/31/20 25 03/31/2025 TSH, REFLE X FREE T4 TSH 0.42 uIU/m L 0.30-5 .33 Not Available [facility] (Lab) [address] [facility], [place], [address], 04/01/2025 03:05:12 03/31/20 25 03/31/2025 CULTU RE: URINE result report SEE RESULT S BELOW Test: Cultu re: Urine Speci men Sourc e: Urine Voide d Speci men Type: Urine Speci men Date: 1710 Resul t Date: 2256 Resul t Statu s: Final resul t Abnor mal: No Resul ting Lab: [facility] [address] [facility] [address] Tel: CULTU RE ----- ----- ----- --- Cultu re resul t (>=3 organ isms prese nt) indic ates possi ble conta minat ion. Repea t cultu re if sympt oms indic ate. Not Available [facility] (Lab) [address], [place], [address], 04/01/2025 23:59:19 03/31/20 25 03/31/2025 urina lysis , dipst ick Leukocytes +1 Not Available [facility] [address], [place], [address], 03/31/2025 09:23:13 03/31/20 25 03/31/2025 urina lysis , dipst ick Nitrite normal Not Available [facility] [address], [place], [address], 03/31/2025 09:23:13 03/31/20 25 03/31/2025 urina lysis , dipst ick Urobilinogen normal Not Available [facility] [address], [place], [address], 03/31/2025 09:23:13 03/31/20 25 03/31/2025 urina lysis , dipst ick Protein trace Not Available [facility] [address], [place], [address], 03/31/2025 09:23:13 03/31/20 25 03/31/2025 urina lysis , dipst ick pH 5 Not Available [facility] [address], [place], [address], 03/31/2025 09:23:13 03/31/20 25 03/31/2025 urina lysis , dipst ick Specific [place] 1.020 [facility] Available [facility] [address], [place], [address], 03/31/2025 09:23:13 03/31/20 25 03/31/2025 urina lysis , dipst ick Ketone normal Not Available [facility] [address], [place], [address], 03/31/2025 09:23:13 03/31/20 25 03/31/2025 urina lysis , dipst ick Bilirubin normal Not Available [facility] [address], [place], [address], 03/31/2025 09:23:13 03/31/20 25 03/31/2025 urina lysis , dipst ick Glucose normal Not Available [facility] [address], [place], [address], 03/31/2025 09:23:13 03/31/20 25 03/31/2025 urina lysis , dipst ick Appearance normal Not Available [facility] [address], [place], [address], 03/31/2025 09:23:13 03/31/20 25 03/31/2025 urina lysis , dipst ick Color normal Not Available [facility] [address], [place], [address], 03/31/2025 09:23:13 04/01/20 25 04/01/2025 [facility] DENIS bacterial vaginosis (bv), tma Negati ve negati ve Not Available [facility] (Lab) [address] [place], [address], 04/02/2025 14:08:45 04/01/20 25 04/01/2025 [facility], DENIS mekhi species, tma Negati ve negati ve Not Available [facility] (Lab) [address] [place], [address], 04/02/2025 14:08:45 04/01/20 25 04/01/2025 [facility] SWAB PLUS, DENIS mekhi glabrata, tma Negati ve negati ve Not Available [facility] (Lab) [address] [place], [address], 04/02/2025 14:08:45 04/01/20 25 04/01/2025 [facility] SWAB PLUS, DENIS trichomonas vaginalis, tma Negati ve negati ve Not Available [facility] (Lab) [address] [place], [address], 04/02/2025 14:08:45 04/01/20 25 04/01/2025 [facility], DENIS chlamydia trachomatis, PCR Negati ve negati ve Not Available [facility] (Lab) [address] [place], [address], 04/02/2025 14:08:45 04/01/20 25 04/01/2025 [facility], DENIS neisseria gonorrhoeae, [...] ded in this panel . Not Available [facility] (Lab) [address] , [place], [address], 04/02/2025 14:08:45 04/22/2004/22/2025 CULTU RE: URINE result report SEE RESULT S BELOW Test: Cultu re: Urine Speci men Sourc e: Urine Voide d Speci men Type: Urine Speci men Date: 2024 1314 Resul t Date: 2024 0322 Resul t Statu s: Final resul t Abnor mal: No Resul ting Lab: [facility] [address] [facility] [address] Tel: CULTU RE ----- ----- ----- --- No growt h in 1 day (dete ction level of 10,00 0 colon ies / ml.) Not Available [facility] (Lab) [address], [place], [address], 04/24/2025 04:28:01 04/22/20 25 04/22/2025 urina lysis , dipst ick Leukocytes + Not Available [address], [place], [address], 04/22/2025 10:01:51 04/22/20 25 04/22/2025 urina lysis , dipst ick Protein + Not Available [facility] [address], [place], [address], 04/22/2025 10:01:51 04/22/20 25 04/22/2025 urina lysis , dipst ick pH 8 Not Available [facility] [address], [place], [address], 04/22/2025 10:01:51 04/22/20 25 04/22/2025 urina lysis , dipst ick Blood + Not Available [facility] [address], [place], [address], 04/22/2025 10:01:51 04/22/20 25 04/22/2025 urina lysis , dipst ick Specific [place] 1.010 Not Available [facility] [address], [place], [address], 04/22/2025 10:01:51 04/22/20 25 04/22/2025 urina lysis , dipst ick Ketone + Not Available [facility] [address], [place], [address], 04/22/2025 10:01:51 06/23/20 25 06/23/2025 HEMAT OCRIT (HCT) HCT 35.6 % (based on docume nted legal sex) 34.0-4 5.0 Not Available [facility] (Lab) [address] [facility], [place], [address], 06/24/2025 11:45:32 06/23/20 25 06/23/2025 HEMOG LOBIN (HGB) HGB 11.1 g/dL (based on docume nted legal sex) 11.6-1 5.4 low Not Available [facility] (Lab) [address] [facility], [place], [address], 06/24/2025 11:45:32 06/23/20 25 06/23/2025 GTT - GESTA ROLAND L SCREE N, ACOG OB glucose, 1 hour screen 180 mg/dL 70-135 high Not Available [facility] (Lab) [address] [facility], [place], [address], 06/24/2025 11:45:33 06/23/20 25 06/23/2025 HIV 1/2 ANTIG EN/AN TIBOD Y, REFLE X CONFI RMATI ON HIV antigen/anti body Nonrea ctive nonrea ctive HIV-1 antig en and HIV-1 /HIV- 2 antib odies were not detec greg. No labor atory evide nce of HIV infec tion. Not Available [facility] (Lab) [address] [facility], [place], [address], 06/24/2025 11:45:33 06/23/20 25 06/23/2025 RPR SCREE N, REFLE X TITER /CONF IRMAT ION RPR qualitative Nonrea ctive nonrea ctive Not Available [facility] (Lab) [address] [facility], [place], [address], 06/24/2025 11:45:34 07/21/20 25 07/21/2025 CULTU RE: URINE result report SEE RESULT S BELOW Test: Cultu re: Urine Speci men Sourc e: Urine - Clean Catch Speci men Type: Urine Speci men Date: 2024 1024 Resul t Date: 2024 0252 Resul t Statu s: Final resul t Abnor mal: No Resul ting Lab: [facility] [address] [facility] [address] Tel: CULTU RE ----- ----- ----- --- No growt h in 1 day (dete ction level of 10,00 0 colon ies / ml.) Not Available [facility] (Lab) [address], [place], [address], 07/23/2025 03:57:01 07/21/2007/21/2025 urina lysis , dipst ick Leukocytes ++ Not Available [address], [place], [address], 07/21/2025 11:03:04 07/21/20 25 07/21/2025 urina lysis , dipst ick Nitrite neg Not Available [address], [place], [address], 07/21/2025 11:03:04 07/21/20 25 07/21/2025 urina lysis , dipst ick Urobilinogen neg Not Available [facility] [address], [place], [address], 07/21/2025 11:03:04 07/21/20 25 07/21/2025 urina lysis , dipst ick Protein + Not Available [facility] [address], [place], [address], 07/21/2025 11:03:04 07/21/20 25 07/21/2025 urina lysis , dipst ick pH 5 Not Available [facility] [address], [place], [address], 07/21/2025 11:03:04 07/21/20 25 07/21/2025 urina lysis , dipst ick Specific [place] 1.030 [facility] Available [facility] [address], [place], [address], 07/21/2025 11:03:04 07/21/20 25 07/21/2025 urina lysis , dipst ick Ketone +++ Not Available [facility] [address], [place], [address], 07/21/2025 11:03:04 07/21/20 25 07/21/2025 urina lysis , dipst ick Bilirubin neg Not Available [facility] [address], [place], [address], 07/21/2025 11:03:04 07/21/20 25 07/21/2025 urina lysis , dipst ick Glucose neg Not Available [facility] [address], [place], [address], 07/21/2025 11:03:04 07/21/20 25 07/21/2025 urina lysis , dipst ick Appearance cloudy Not Available [address], [place], [address], 07/21/2025 11:03:04 07/21/20 25 07/21/2025 urina lysis , dipst ick Color dark Not Available [facility] [address], [place], [address], 07/21/2025 11:03:04 08/04/20 25 08/04/2025 CMP(C OMPRE HENSI VE METAB OLIC PANEL ) sodium 138 mmol/ L 133-14 6 Not Available [facility] (Lab) [address] [facility], [place], [address], 08/05/2025 13:39:18 08/04/20 25 08/04/2025 CMP(C OMPRE HENSI VE METAB OLIC PANEL ) potassium 4.0 mmol/ L 3.5-5. 1 Not Available [facility] (Lab) [address] [facility], [place], [address], 08/05/2025 13:39:18 08/04/20 25 08/04/2025 CMP(C OMPRE HENSI VE METAB OLIC PANEL ) chloride 105 mmol/ L 98-107 Not Available [facility] (Lab) [address] [facility], [place], [address], 08/05/2025 13:39:18 08/04/20 25 08/04/2025 CMP(C OMPRE HENSI VE METAB OLIC PANEL ) carbon dioxide 25 mmol/ L 21-31 Not Available [facility] (Lab) [address] [facility], [place], [address], 08/05/2025 13:39:18 08/04/20 25 08/04/2025 CMP(C OMPRE HENSI VE METAB OLIC PANEL ) anion gap 8 mmol/ L 4-13 Not Available [facility] (Lab) [address] [facility], [place], [address], 08/05/2025 13:39:18 08/04/20 25 08/04/2025 CMP(C OMPRE HENSI VE METAB OLIC PANEL ) blood urea nitrogen 10 mg/dL 7-25 Not Available [facility] (Lab) [address] [facility], [place], [address], 08/05/2025 13:39:18 08/04/20 25 08/04/2025 CMP(C OMPRE HENSI VE METAB OLIC PANEL ) creatinine 0.41 mg/dL 0.60-1 .30 low Not Available [facility] (Lab) [address] [facility], [place], [address], 08/05/2025 13:39:18 08/04/20 25 08/04/2025 CMP(C OMPRE HENSI VE METAB OLIC PANEL ) egfrcr (CKD-epi 2020) >90 mL/mi n/1.7 3_m2 >=60 Not Available [facility] (Lab) [address] [facility], [place], [address], 08/05/2025 13:39:18 08/04/20 25 08/04/2025 CMP(C OMPRE HENSI VE METAB OLIC PANEL ) calcium 8.9 mg/dL 8.3-10 .5 Not Available [facility] (Lab) [address] [facility], [place], [address], 08/05/2025 13:39:18 08/04/20 25 08/04/2025 CMP(C OMPRE HENSI VE METAB OLIC PANEL ) glucose 116 mg/dL 70-100 high Not Available [facility] (Lab) [address] [facility], [place], [address], 08/05/2025 13:39:18 08/04/20 25 08/04/2025 CMP(C OMPRE HENSI VE METAB OLIC PANEL ) protein, total 6.1 g/dL 6.4-8. 3 low Not Available [facility] (Lab) [address] [facility], [place], [address], 08/05/2025 13:39:18 08/04/20 25 08/04/2025 CMP(C OMPRE HENSI VE METAB OLIC PANEL ) albumin 3.5 g/dL 3.5-5. 0 Not Available [facility] (Lab) [address] [facility], [place], [address], 08/05/2025 13:39:18 08/04/20 25 08/04/2025 CMP(C OMPRE HENSI VE METAB OLIC PANEL ) ALT 11 units /L 9-43 Not Available [facility] (Lab) [address] [facility], [place], [address], 08/05/2025 13:39:18 08/04/20 25 08/04/2025 CMP(C OMPRE HENSI VE METAB OLIC PANEL ) alkaline phosphatase 98 units /L 34-104 Not Available [facility] (Lab) [address] [facility], [place], [address], 08/05/2025 13:39:18 08/04/20 25 08/04/2025 CMP(C OMPRE HENSI VE METAB OLIC PANEL ) AST 15 units /L 13-39 Not Available [facility] (Lab) [address] [facility], [place], [address], 08/05/2025 13:39:18 08/04/20 25 08/04/2025 CMP(C OMPRE HENSI VE METAB OLIC PANEL ) bilirubin, total 0.3 mg/dL 0.2-1. 2 Not Available [facility] (Lab) [address] [facility], [place], [address], 08/05/2025 13:39:18 08/04/20 25 08/04/2025 BILE ACIDS , TOTAL bile acids, total 4 umol/ L 0-10 Test Perfo rmed by: Luke hern[facility]dez rn [facility] [address] [address] Not Available [facility] (Lab) [address] [facility], [place], [address], 08/05/2025 13:39:19 03/02/20 25 03/02/2025 US, obste tric, nucha l trans lucen cy No observ ation record ed. [email or web address] [facility] [address], [place], [address], 03/02/2025 13:35:30 03/02/20 25 03/02/2025 US, obste tric, nucha l trans lucen cy No observ ation record ed. [email or web address] [address], [place], [address], 03/03/2025 14:08:39 03/08/20 25 03/08/2025 US, obste tric, 1st trime ster No observ ation record ed. [email or web address] [facility] [address], [place], [address], 03/08/2025 12:22:22 03/08/20 25 03/08/2025 US, obste tric, 1st trime ster No observ ation record ed. [email or web address] [address], [place], [address], 03/10/2025 15:03:13 04/01/20 25 03/24/2025 [email or web address] r monit or No observ ation record ed. [address], [address], 04/08/2025 12:36:45 04/01/20 25 03/22/2025 [email or web address] r monit or No observ ation record ed. [address] (Pulmonary) [address] [place] [address] [place] [address], [address], 04/06/2025 08:59:34 04/20/20 25 04/20/2025 US, obstanna tric, limit ed No observ ation record ed. [email or web address] [facility] [address], [place], [address], 04/20/2025 17:39:30 04/20/20 25 04/20/2025 US, obste tric, follo w-up No observ ation record ed. [email or web address] [address] [place] [address] [address], [place], [address], 04/23/2025 08:32:54 04/28/20 25 04/28/2025 US, obste tric, 2nd or 3rd trime ster No observ ation record ed. [email or web address] [facility] [address], [place], [address], 04/28/2025 17:48:42 04/28/20 25 04/28/2025 US, obste tric, 2nd or 3rd trime ster No observ ation record ed. [email or web address] [address], [place], [address], 05/04/2025 22:16:11 05/07/20 25 05/07/2025 non-s tress test No observ ation record ed. [address], [place], [address], 05/28/2025 13:33:54 05/21/20 25 05/21/2025 CT, head + brain , w/o contr ast No observ ation record ed. [place] [id number] [facility] [address], [place], [address], 05/24/2025 13:48:57 05/28/20 25 05/28/2025 US, obste tric, follo w-up No observ ation record ed. [email or web address] [facility] [address], [place], [address], 05/28/2025 17:32:34 05/28/20 25 05/28/2025 US, obste tric, follo w-up No observ ation record ed. [email or web address] [address], [place], [address], 06/01/2025 15:13:13 06/08/20 25 06/07/2025 US, obste tric, follo w-up No observ ation record ed. [facility] [address], [place], [address], 06/15/2025 10:53:46 07/07/20 25 07/07/2025 US, obste tric, follo w-up No observ ation record ed. [email or web address] [facility] [address], [place], [address], 07/07/2025 13:18:01 07/07/20 25 07/07/2025 US, obste tric, follo w-up No observ ation record ed. [email or web address] [address], [place], [address], 07/07/2025 11:29:37 08/04/20 25 08/04/2025 US, obste tric, follo w-up No observ ation record ed. [email or web address] [facility] [address], [place], [address], 08/04/2025 15:08:50 08/04/20 25 08/04/2025 US, obste tric, follo w-up No observ ation record ed. [email or web address] [address], [place], [address], 08/06/2025 10:41:50 08/11/20 25 08/11/2025 non-s tress test No observ ation record ed. [email or web address] [facility] [address], [place], [address], 08/11/2025 17:37:52 08/11/20 non-s tress test No observ ation record ed. [email or web address] [facility] [address], [place], [address], 08/11/2025 17:38:11 08/15/20 25 08/15/2025 non-s tress test No observ ation record ed. [place] [id number], [place], [address], 08/21/2025 10:18:57 08/15/2008/15/2025 US, obste tric, bioph ysica l profi le No observ ation record ed. [address], [place], [address], 08/17/2025 10:50:53 08/18/2008/18/2025 US, obste tric, bioph ysica l profi le + non-s tress test No observ ation record ed. [email or web address] [facility] [address], [place], [address], 08/18/2025 10:21:39 08/18/2008/18/2025 US, obste tric, bioph ysica l profi le + non-s tress test No observ ation record ed. [email or web address] [address], [place], [address], 08/18/2025 10:35:44 08/18/2008/18/2025 non-s tress test No observ ation record ed. [email or web address] [facility] [address], [place], [address], 08/18/2025 17:34:03 08/18/20 non-s tress test No observ ation record ed. [email or web address] [facility] [address], [place], [address], 08/18/2025 16:06:09 08/25/2008/25/2025 US, obste tric, bioph ysica l profi le + non-s tress test No observ ation record ed. [email or web address] [facility] [address], [place], [address], 08/25/2025 18:52:06 08/25/20 25 08/25/2025 US, obste tric, follo w-up No observ ation record ed. joelle [address]sha [address], [place], [address], 08/25/2025 15:47:28 08/25/20 25 08/25/2025 non-s tress test No observ ation record ed. [email or web address] [facility] [address], [place], [address], 08/25/2025 18:12:15 08/25/20 non-s tress test No observ ation record ed. [email or web address] [facility] [address], [place], [address], 08/25/2025 17:21:19 08/30/20 25 08/30/2025 non-s tress test No observ ation record ed. [address], [place], [address], 09/15/2025 15:26:49 09/01/20 25 09/01/2025 non-s tress test No observ ation record ed. [place] [id number] [facility] [address], [place], [address], 09/13/2025 11:32:22 09/01/20 25 09/01/2025 US, mistye tric No observ ation record ed. [place] [id number] [facility] [address], [place], [address], 09/02/2025 15:56:01 09/01/20 25 09/01/2025 non-s tress test No observ ation record ed. [email or web address] [id number] [facility] [address], [place], [address], 09/02/2025 14:32:38 09/16/20 09/16/2025 imagi ng/di agnos tic resul t No observ ation record ed. [facility] [address], [place], [address], 09/16/2025 18:07:05 Result Notes None recorded. Problems Name Problem SNOMED Code Status Onset Date Resolution Date Notes Provider Name and Address Organization Details Recorded Time Hypereme sis 034333046 Completed phenerga n now prn Asia ramos [facility] 2 16:43:51 Anxiety in pregnanc y [id number] [id number] Completed will continue to monitor Asia ramos [facility] 2 16:43:51 Past pregnanc y history of gestatio nal diabetes mellitus 435075748 Completed Early 1 hr GTT @ 20wks 11/03 APPT Asia ramos [facility] 2 16:43:51 Spinal muscular atrophy [id number] Completed Carrier - Not in contact with FOB. Asia ramos [facility] 2 16:43:51 Anxiety 00779065 Completed prozac Karina ramos [facility] 4 11:00:46 Nausea [id number] Completed d/c zofran pump 11/08 per pt request Karina ramos [facility] 4 11:00:46 Postpart um hemorrha ge [id number] Completed hx 2017 with d&c Karina ramos [facility] 4 11:00:46 Normal pregnanc y in multigra jessy [id number] 03624 Completed 201907/05/2021 Encounte r for supervis ion of other normal pregnanc y, 3rd trimeste r;Record ed Elsewher e: No Locat ion: Jaelyn castillo [facility] S ource: EHR Applications Development Consultant yvrose: N Natalyati ce ID: [id number] Gigi lable Time: 10:45:00 AM Karina ramos [facility] 10:15:27 Gestatio n period, 37 weeks 26809153 Completed 201907/05/2021 37 weeks gestatio n of pregnanc y;Record ed Elsewher e: No [facility] our[facility]: EHR Applications Development Consultant yvrose: N Natalyati ce ID: 0001 Gigi lable Time: 09:00:00 AM Karina ramos [facility] 10:15:[address] Concept Completed 201907/05/2021 Matern care for abnlt fetl hrt rate or rhym, 3rd tri, unsp;Rec orded Elsewher e: No [facility] ource: EHR Applications Development Consultant yvrose: N Natalyati ce ID: 0001 Gigi lable Time: 08:45:00 AM Karina ramos [facility] 10:15:29 Gestatio nal diabetes mellitus 74089062 Completed 201907/05/2021 Gestatio nal diabetes mellitus in pregnanc y, diet controll ed;Recor ded Elsewher e: No Locat ion: [facility] S ource: EHR Applications Development Consultant yvrose: N Natalyati ce ID: 0001 Gigi lable Time: 11:45:00 AM Karina ramos [facility] 10:15:25 Gestatio n period, 38 weeks 55931206 Completed 201907/05/2021 38 weeks gestatio n of pregnanc y;Record ed Elsewher e: No Locat ion: [facility] S ource: EHR Applications Development Consultant yvrose: N Practi ce ID: 0001 Gigi lable Time: 11:30:00 AM Karina ramos [facility] 10:15:13 Amenorrh ea 56129497 Completed 202007/10/2021 Tammi Jones null, [facility] 13:08:35 Pregnanc y 08751227 Completed 202003/29/2022 Emma Dykes null, [facility] 12:28:48 Pregnanc y 82215273 Completed 202304/22/2024 Emma Dykes null, [facility] 12:28:48 Headache 48883694 Active 2023 Karina Burroughs null, [facility] 16:19:28 Pregnanc y 22085931 Completed 202309/14/2025 Emma Dykes null, [facility] 12:28:48 Uncompli cated moderate persiste nt asthma 708698188 Completed 2024 albutero l prn Shawn Bradley MD [address], [place], [address], [facility] 13:08:36 Anxiety 62405307 Completed 2024 sertrali ne started 03/02/25 changed to prozac 10 on Shawn Bradley MD [address], [place], [address], [facility] 17:05:48 Nausea and vomiting 19025628 Completed 2024 Shawn Bradley MD [address], [place], [address], [facility] 13:20:27 Placenta circumva llata 4794590 Completed 2024 32wk growth Ryann Castro null, [facility] 5 09:44:35 Frequent headache 251190852 Completed 2024 transpor t to [facility] 05/21, discharg e 05/23 MF [...] than 2-3 times a week. Ryann ramos [facility] 5 10:55:26 Abnormal placenta affectin g manageme nt of mother 68557658 Completed 2024 MCI serial growth us Ryann ramos [facility] 5 10:46:25 Iron deficien cy anemia 58200367 [facility] x1 HGB 10.6 Ryann ramos [facility] 5 15:21:25 Gestatio nal diabetes mellitus 04381570 Completed 2024 checking bs QID - ruled in GDM Referral faxed to [facility] 07/07 Ryann ramos [facility] 5 14:36:52 Notes:[facility], and home health already caring for pt. Vladimir RDZ at [phone] Problem Notes None recorded. Procedures Surgical History Date Name Laterality Status Provider Name and Address Organization Details Recorded Time 025 SALPINGECTOMY, LAPAROSCOPIC (SURG) completed Not Available [facility] 09/06/2025 11:19:17 025 Date of Last Pap Smear completed Karina Burroughs [facility] 01/28/2025 11:19:42 024 Nexplanon Removal completed Shawn Bradley MD [address], [place], [address], [facility] 08/05/2024 15:09:58 024 Control Implant Insertion completed Anju Mcnamara CNM [address], [place], [address], [facility] 05/08/2024 17:59:34 024 cholecystectomy completed Karina Burroughs [facility] 03/31/2025 09:18:57 018 Dilation and Curettage completed Karina Burroughs [facility] 07/05/2021 10:17:50 Imaging Results None recorded. Procedure Notes None recorded. Medical Equipment None Reported. Allergies Allergen ID Allergen Name Allergen Category Reaction Reaction Severity Criticality Documentation Date Start Date Code Code System Note Provider Name and Address Organization Details Recorded Time 29432 terbutali ne medicatio n anaphylax is Not available Not available 01/27/20252021 64310 RxNorm Karina ramos, [facility] 16:19:27 88613 amoxicill in medicatio n Not available Not available Not available 09/10/2025 723 RxNorm Not Available gene - External Data Service - prod 16:39:37 87050 terbinafi ne medicatio n anaphylax is Not available [facility] 09/10/20252024 03343 RxNorm Not Available [employer] External Data Service - prod 16:40:54 Medications [...] Loca tion: [facility] odify By: prabhjot Lee r DateTime : [...] n (supplie d by office) insert lot [id number] Exp 01/2026 Not Available Not Available Not Available 28 mg iron-800 mcg tablet 07/05 completed Prescrib ed Elsewher e: Yes Loca tion: [facility] odify By: prabhjot Lee r DateTime : 01/14/20 10:45:00 AM Not Available Not Available Not Available lidocaine 5 % topical ointment APPLY OINTMENT EXTERNAL LY TO RIBS THREE TIMES DAILY NEEDED 01/14 completed Not Available Not Available Not Available IUSS ANALYST-PNV-DH A 28 mg iron-1 mg-200 mg capsule [...] Updated DateTime 08/11/2025 162.56 cm 31.4 kg/m2 68768.4 g 115/73 mm[Hg] Toya Perkins [facility] 08/11/2025 15:17:18 Social History Question Answer Notes LastModified by Organizat ion Details LastModified Time Tobacco Smoking Status Former Smoker Karina ramos, [facility] 07/05/2021 09:06:21 If You Are , What Was Your Level Of Alcohol Consumption Prior To ? Occasional [email or web address] Information not available 03/31/2025 Are You Blind Or Do You Have Difficulty Seeing? No [email or web address] Information not available 07/05/2021 What Is Your Level Of Caffeine Consumption? Heavy [email or web address] Information not available 07/05/2021 In The 14 Days Before Symptom Onset, Have You Had Close Contact With A Laboratory-confir med COVID-19 While That Case Was Ill? No [email or web address] Information not available 07/05/2021 In The 14 Days Before Symptom Onset, Have You Had Close Contact With A Person Who Is Under Investigation For COVID-19 While That Person Was Ill? No [email or web address] Information not available 07/05/2021 Have You Been To An Area Known To Be High Risk For COVID-19? No [email or web address] Information not available 07/05/2021 Are You Deaf Or Do You Have Serious Difficulty Hearing? No [email or web address] Information not available 07/05/2021 What Type Of Diet Are You Following? REGULAR [email or web address] Information not available 07/05/2021 Which Illicit Or Recreational Drugs Have You Used? Marijuana Information not available 07/05/2021 Have You Ever Been Counseled For Unhealthy Alcohol Use? No Information not available 07/05/2021 Do You Use Your Seat Belt Or Car Seat Routinely? Yes [email or web address] Information not available 07/05/2021 Do You Have Smoke And Carbon Monoxide Detectors In Your Home? Yes [email or web address] Information not available 07/05/2021 Do You Use Sunscreen Routinely? Yes [email or web address] Information not available 07/05/2021 Has Tobacco Cessation Counseling Been Provided? No [email or web address] Information not available 07/05/2021 Have You Used IV Drugs? No [email or web address] Information not available 07/05/2021 Do You Have Difficulty Walking Or Climbing Stairs? No [email or web address] Information not available 12/06/2021 Sex: Unknown Functional Status Question Answer Note LastModified by [employer] ion Details LastModified Time Do you use any illicit or recreational drugs? Yes [email or web address] Information not available 07/05/2021 Do you or have you ever used any other forms of tobacco or nicotine? Yes [email or web address] Information not available 07/05/2021 What is your level of alcohol consumption? None Information not available 03/31/2025 Do you or have you ever used smokeless tobacco? Never used smokeless tobacco [email or web address] Information not available 07/05/2021 Are you able to walk independently without assistance or assistive devices? YESWOREST [email or web address] Information not available 07/05/2021 Are you able to care for yourself independently? Yes [email or web address] Information not available 12/06/2021 Do you have difficulty dressing, bathing, grooming, or toileting? No [email or web address] Information not available 12/06/2021 Do you or have you ever used e-cigarettes or vape? Current user of electronic cigarettes [email or web address] Information not available 07/05/2021 What is your exercise level? Occasional [email or web address] Information not available 07/05/2021 Mental Status Question Answer Note LastModified by Organization D etails LastModified Time Do you feel stressed (tense, restless, nervous, or anxious, or unable to sleep at night)? [id number] [email or web address] Information not available 07/05/2021 Family History Relationship Description Onset Age of this Age Resolved Age Notes LastModified by Organization Details LastModified Time Father No current problems or disability [email or web address] Not available 05/2021 09:06:31 Mother No current problems or disability [email or web address] Not available 05/2021 09:06:31 Medical History Condition [...] ICD10 Code Diagnosis IMO Codes Diagnosis Note [id number] [facility] [address],[place] [address] 07/21/2025 09:28:54 07/21/2025 12:36:06 Pain in pelvis 99734901 R10.2 265992 Gestation period, 32 weeks 9453178 Z3A.32 7501700 [id number] Shawn Bradley MD [place] [address],[place] [address] 08/04/2025 14:02:59 08/04/2025 15:06:33 Gestational diabetes mellitus 06737011 O24.410 O43.103 O43.113 Z3A.34 [id number] [facility] [address],[place] [address] 08/04/2025 14:21:57 08/04/2025 15:26:03 Gestation period, 34 weeks 04013399 Z3A.34 2021548 Pruritic d isorder of skin 6211562428 L29.9 42120 plan labs today, ursadiol BID [id number] [facility] [address] [place] [address] 08/11/2025 14:51:38 08/11/2025 17:16:44 Gestational diabetes mellitus 17017562 O24.414 23067801 [id number] [facility] [address] [place] [address] 08/11/2025 16:25:59 08/11/2025 17:46:32 Gestational diabetes mellitus 24551080 O24.414 [id number] Health Concerns Section Related Observation LastModified by Organization Detai ls LastModified Time None Recorded Concern Status LastModified by Organization Details LastModified Time None Recorded Payers Encounter Date Sequence Insurance Name Policy Number Policy Roberts Covered Member ID Roberts Member ID Guarantor Name 08/11/2025 1 [facility] (MEDICAID HMO) [id number] Yuni Mejia [id number] Yuni Mejia Notes Date Note Type Note Provider Name and Address Organization Details Recorded Time 08/11/2025 text/html Generic HPI TemplateReported by Patient Anju Prescott Naima, KRISTEN [address], [place], [address], [place] [facility] 08/11/2025 17:10:44 OBGyn Episode Ob Episode Information Episode Created Date Number of Fetuses Patient Bloodtype Patient rh Status Prepregnancy Weight lbs Domestic Partner Domestic Partner Phone Father Name Manufacturing Teacher Status 03/02/20 25 1 B Positive 164 CLOSED Fetus Data First Name Last Name Admitted to NICU Weight (g) Sex Living Outcome Pediatric Complications Fetus ID Race Codes Race Delivery Type Ziah false 4025.62 9 F true Full Term 47103 Vaginal Delivery Problems Problem Notes SDH form completed 5GI consult Tachycardia Holter monitor 72 order- pt sent back on 03-27-25 Cardiology referral faxed per Dr Martínez office calling pt 04/21 to schedule consult scheduled 05/11 11:15AM Problem Name Start Date End Date Resolution Snomed Code Not e Uncomplicated moderate persistent asthma 03/02/2025 250476095 albuterol prn Abnormal placenta affecting management of mother 05/04/2025 33561688 MCI serial grow th us Iron deficiency anemia 05/25/2025 [id number] [facility] tx [place] 200mg x1 HGB 10.6 Nausea and vomiting 03/02/2025 87256037 Anxiety 03/02/2025 96985007 sertralin e started 03/02/25 changed to prozac 10 on Gestational diabetes mellitus 07/08/2025 49705035 checking bs QID - ruled in GDM Referral faxed to [facility] 07/07 Frequent headache 05/03/2025 [id number] [place] to [facility] 05/21, discharge 05/23 MF referral faxed 05/24 SS Neurology consult pending per KAJAL Pittman [facility] ST- Neuro [facility] unable to see pt due to insurance 05/25[facility] ST 07/05/25 Level US & Consult (see MFM consult zayas recommendations ) regimen prn Imitrex 50mg for acute migraine, vitamin B2 (Riboflavin) 400mg, Coenzyme q10 300mg and magnesium oxide 200 to 600mg daily. minimize use of Excedrin or Tylenol to no more than 2-3 times a week. 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/2025 3046312 32wk growth us Jun Calculation Initial Jun [...] Weight in lbs Pre/Post Dialysis Refused Weight 158.726758398119 BP Diastolic BP Location Tested BP Systolic [...] Weight in lbs Pre/Post Dialysis Refused Weight 158.624382022220 BP Diastolic BP Location Tested BP Systolic [...] Weight in lbs Pre/Post Dialysis Refused Weight 162.964642734608 BP Diastolic BP Location Tested BP Systolic BP Type 78 123 Fetus Heart Rate Present A 148 Fetus Movement A Yes Comments Patient is having having ronny n, cramping and vaginal discharge. went to ed exam done cultures and rx sent, ?FM, await radiographer cardiac catheterization results rfilled zofran, precautions and education f/u [...] Type Weight in lbs Pre/Post Dialysis Refused 168.204216431701 BP Diastolic BP Location Tested BP Systolic [...] Type Weight in lbs Pre/Post Dialysis Refused 169.002803335462 BP Diastolic BP Location Tested BP Systolic [...] Weight in lbs Pre/Post Dialysis Refused Weight 175.247188794527 BP Diastolic BP Location Tested BP Systolic [...] Weight in lbs Pre/Post Dialysis Refused Weight 182.289198145579 BP Diastolic BP Location Tested BP Systolic [...] Weight in lbs Pre/Post Dialysis Refused Weight 181.163550074876 BP Diastolic BP Location Tested BP Systolic BP Type 73 L arm 131 sitting Fetus Heart Rate Present Fetus Movement A Yes Comments viral URI testied neg at urg ent care, nausea resolved, efw 68%, +FM plan education and precautions f/u 2 weeks diagnosed GDM, plan correction worker, gave list reviewed protein vs carb Flowsheet Date 07/21/2025 Gibson Score Blood Edema Fundus Height Fundus Units Glucose Ketones Leukocytes Nitrite Labor Signs Protein Cervic Dilation Cervic Effacement Cervic Station Type Weight in lbs Pre/Post Dialysis Refused Weight 181.657494238147 BP Diastolic BP Location Tested BP Systolic BP Type 78 L arm 127 sitting Fetus Heart Rate Present A 150 Fetus Movement A Yes Comments rpt urine culture +FM review ed blood sugars, meets with correction worker today, precautions and education f/u 2 [...] Weight in lbs Pre/Post Dialysis Refused Weight 181.305865992255 BP Diastolic BP Location Tested BP Systolic [...] Weight in lbs Pre/Post Dialysis Refused Weight 183.778600697073 BP Diastolic BP Location Tested BP Systolic [...] Type Weight in lbs Pre/Post Dialysis Refused 184.855183563856 BP Diastolic BP Location Tested BP Systolic [...] Type Weight in lbs Pre/Post Dialysis Refused 184.053902169552 BP Diastolic BP Location Tested BP Systolic [...] Type Weight in lbs Pre/Post Dialysis Refused 184.261983253269 BP Diastolic BP Location Tested BP Systolic [...] Weight in lbs Pre/Post Dialysis Refused Weight 184.496173937957 BP Diastolic BP Location Tested BP Systolic [...] Weight in lbs Pre/Post Dialysis Refused Weight 164.137850680266 BP Diastolic BP Location Tested BP Systolic [...]
--- OUTSIDE RECORDS SUMMARY | 2025-09-16 17:51 | XMS_ITS ---
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 Name Role Phone DAVID ASHTON Attending Unavailable [...] CVX HPV9 01/05/2017 Completed 165 CVX Results TROPONIN LEVEL - Collect Neil e/Time: 06/23/2024 19:14 [facility] ID: [id number] [address] [place], [place], [phone] LOINC: 25244-6 Test Value Unit Reference Range Code Code System Flag TROPONIN < 0.012 ng/mL L=0.000 H=0.033 24836-2 LOINC CBC W/ DIFF - Collect Date/T randall: 06/23/2024 15:22 [facility] ID: [id number] [place] [address], [phone] LOINC: 53490-1 Test Value Unit Reference Range Code Code System Flag WBC 7.8 10^3uL L=4.8 H=10.8 RBC 4.88 10^6uL L=4.20 H=5.40 HEMOGLOBIN 12.7 g/dL L=12.0 H=16.0 718-7 LOINC HEMATOCRIT 40.6 VOL% L=37.0 H=47.0 4544-3 LOINC MCV 83.2 fL L=81.0 H=99.0 MCH 26.0 pg L=27.0 H=32.0 L MCHC 31.3 g/dL L=32.0 H=36.0 L PLATELETS 290 10^3uL L=100 H=400 12542-6 LOINC RDW 13.8 % L=11.7 H=15.5 %GRAN 48.3 % L=40.0 H=70.0 61129-0 LOINC %LYMPH 40.2 % L=20.0 H=45.0 736-9 LOINC %MONO 8.0 % L=2.0 H=10.0 74795-4 LOINC %EOS 2.8 % L=0.0 H=6.0 713-8 LOINC %BASO 0.4 % L=0.0 H=3.0 706-2 LOINC #NEUT 3.8 10^3uL L=1.9 H=7.6 81353-7 LOINC #LYMPH 3.2 10^3uL L=0.9 H=4.9 76863-6 LOINC #MONO 0.6 10^3uL L=0.1 H=0.9 79338-3 LOINC #EOS 0.2 10^3uL L=0.0 H=0.6 712-0 LOINC #BASO 0.03 10^3uL L=0.00 H=0.10 13608-0 LOINC #IM GRANS 0.0 10^3uL L=0.0 H=7.0 85220-4 LOINC %IM GRANS 0.3 % L=0.0 H=5.0 60010-1 LOINC %NRB 0.0 L=0.0 H=0.2 84339-9 LOINC #NRB 0.000 L=0.000 H=0.012 15113-9 LOINC MANUAL DIFF NOT INDICATED RBC MORPH NOT INDICATED COMPREHENSIVE METABOLIC PANE L - Collect Date/Time: 06/23/2024 15:22 [facility] ID: [id number] [address] [place], [place], [phone] LOINC: 89072-4 Test Value Unit Reference Range Code Code System Flag FASTING UNKNOWN BUN 19 mg/dL L=7 H=20 3094-0 LOINC CREATININE 0.90 mg/dL L=0.52 H=1.04 2160-0 LOINC GLUCOSE 97 mg/dL L=74 H=106 2345-7 LOINC SODIUM 141 mmol/L L=132 H=144 2951-2 LOINC POTASSIUM 3.8 mmol/L L=3.5 H=5.1 2823-3 LOINC CHLORIDE 105 mmol/L L=98 H=107 2075-0 LOINC CO2 26.0 mmol/L L=22.0 H=30.0 2028-9 LOINC ANION GAP 14 L=10 H=20 53488-4 LOINC OSMOLALITY 294 mOs/kG L=280 H=296 04252-7 LOINC BUN/CREAT 21.1 3097-3 LOINC CALCIUM 9.5 mg/dL L=8.3 H=10.5 72380-3 LOINC AST 31 U/L L=15 H=46 1920-8 LOINC ALT 22 U/L L=9 H=72 1742-6 LOINC ALKALINE PHOS 90 U/L L=38 H=126 6768-6 LOINC TOTAL BILI 0.4 mg/dL L=0.2 H=1.3 1975-2 LOINC ALBUMIN 4.6 G/dL L=3.5 H=5.0 1751-7 LOINC TOTAL PROTEIN 7.8 g/L L=6.3 H=8.2 2885-2 LOINC A/G RATIO 1.4 46790-0 LOINC AGE 24 89018-3 LOINC eGFR NON-AFR 81 ml/min eGFR AFR AMER 98 ml/min LIPASE - Collect Date/Time: 06/23/2024 15:22 [facility] ID: [id number] [address] [place] [address], [id number] LOINC: 3040-3 Test Value Unit Reference Range Code Code System Flag LIPASE 118 U/L L=23 H=300 3040-3 LOINC TROPONIN LEVEL - Collect Neil e/Time: 06/23/2024 15:22 [facility] ID: [id number] [address] [place] [address], [phone] LOINC: 86449-8 Test Value Unit Reference Range Code Code System Flag TROPONIN < 0.012 ng/mL L=0.000 H=0.033 55768-2 LOINC TEST SERUM - Colle ct Date/Time: 06/23/2024 15:22 [facility] ID: [id number] [address] [place] [address], [id number] LOINC: Test Value Unit Reference Range Code Code System Flag SERUM PREG NEGATIVE D DIMER - Collect Date/Time: 06/23/2024 15:22 [facility] ID: [id number] [address] [place], [place], [phone] LOINC: Test Value Unit Reference Range Code Code System Flag DDIMER 0.91 mg/L FEU L=0.00 H=0.50 H CHEST 1V - Completed: 2023 16:10 LOINC: EXAM DESCRIPTION: CHEST 1V REASON FOR STUDY: chest pain radiating down left arm/ recent childbirth 2 months ago/ elevated d dimer Duration: today Smoking History: TECHNIQUE: Frontal radiographic view(s) of the chest. COMPARISON: 06/14/2024 FINDINGS: LUNGS: The lungs are clear. No focal pulmonary parenchymal consolidation, pleural effusion, or pneumothorax. HEART/MEDIASTINUM: Cardiac silhouette normal in size. Mediastinal and hilar contours appear normal. LINES/TUBES: None. BONES: No acute osseous abnormality. IMPRESSION: No acute cardiopulmonary abnormality. THIS IS AN ELECTRONICALLY VERIFIED FINAL REPORT 06/23/2024 4:42 PM - Electronically signed by Justa Nagy M.D. AT: AT Report ID: [id number] Reading Location: [place] [address] CT CHEST PE ANGIO W/ CONTRAS T - Completed: 06/23/2024 16:55 LOINC: 45890-5 EXAM DESCRIPTION: CT CHEST PE ANGIO W/ CONTRAST REASON FOR STUDY: chest pain radiating down left arm/ recent childbirth 2 months ago/ elevated d dimer Duration: today Smoking History: TECHNIQUE: CT angiogram of the chest performed with intravenous contrast using helical scanning technique with dynamic intravenous contrast injection. Reconstructed coronal and sagittal MPR images reviewed. All images stored on PACS. 3D MIP images rendered on scanning unit and reviewed at time of interpretation. Automated exposure control was used as a dose optimization technique for this examination. CONTRAST TYPE/DOSE: 80 cc's of Isovue 370 injected via lac 20 ga COMPARISON: 06/14/2024, 06/23/2024 REFERENCE: Per ACR white paper recommendations, unless otherwise specified no follow-up imaging is recommended for incidental renal and adrenal lesions per consensus recommendations based on imaging criteria. Further lab evaluation could be pursued based on clinical findings. FINDINGS: VASCULATURE: No CT evidence of pulmonary embolism. Normal size of the main pulmonary arteries. No aortic aneurysm or aortic dissection. LUNGS: Mild scattered subsegmental atelectasis. No pulmonary parenchymal consolidation or pulmonary edema. No discrete pulmonary nodules. PLEURA: No pleural effusion. No pneumothorax. MEDIASTINUM/EDER: No identified masses or lymphadenopathy. No supraclavicular lymphadenopathy. The esophagus is within normal limits. HEART: Heart size is normal with no pericardial effusion. AXILLA: No adenopathy. CHEST WALL: No masses. No subcutaneous air. HARDWARE/LINES/TUBES: None. UPPER ABDOMEN: No significant abnormality. MUSCULOSKELETAL: No acute fractures or aggressive osseous lesions. IMPRESSION: 1. No CT evidence of pulmonary embolism. THIS IS AN ELECTRONICALLY VERIFIED FINAL REPORT 06/23/2024 5:37 PM - Electronically signed by Justa Nagy M.D. AT: AT Report ID: [id number] Reading Location: [id number] US GALLBLADDER - Completed: 06/23/2024 15:44 LOINC: EXAM DESCRIPTION: US GALLBLADDER REASON FOR STUDY: History of gallstones, right upper quadrant pain/tenderness. Duration of symptoms is 1 year. TECHNIQUE: Ultrasound of the gallbladder was performed with grayscale imaging. COMPARISON: Gallbladder ultrasound dated 11/06/2023. FINDINGS: GALLBLADDER: Echogenic foci in the gallbladder in keeping with gallstones. Gallbladder wall measures up to 0.2 cm. No positive sonographic Nunn? s sign reported. BILIARY SYSTEM: The the common bile duct measures 0.3 cm in diameter. LIVER: The visualized portion of the liver has a homogeneous echotexture with maximum dimensions of 16.6 cm. IMPRESSION: Gallstones without secondary sonographic evidence for acute cholecystitis. If there remains concern for acute cholecystitis then recommend further assessment with HIDA scan. THIS IS AN ELECTRONICALLY VERIFIED FINAL REPORT 06/23/2024 3:52 PM - Electronically signed by John Fernandez.O. AP: STELLA Report ID: [id number] Reading Location: [id number] Social History Type Status Start Date End Date Code Code Syst em Smoking History Never smoker (Never Smoked) [id number] SNOMED CT Sex Female Assessment You had [...] 6002 SNOMED-CT UNSPECIFIED ABDOMINAL PAIN active 215 15392 SNOMED-CT Allergies and Adverse Reactions Allergy Substance Reaction Severity Start Date Concern Status Co de Code System AMOXICILLIN Active 723 RxNorm TERBUTALINE Active 53627 RxNorm Plan of Treatment Stress Test Treadmill 01/21/2025 Conductor Sleep[employer] Car Consult 04/27/2025 Encounters Encounter Diagnosis Start Date Code Code Sys tem Chest pain, unspecified 06/23/2024 SNOM ED-CT Personal Care Team Section Performer Name Performer Role Active Date Inactive Da te KRAIG ESTRADA PCP - Primary care physician 2021-10 0-24 2024-09-12 KRAIG ESTRADA PCP - Primary care physician 1-10 2024-09-12 KRAIG ESTRADA PCP - Primary care physician 0 1-10 2024-09-12 KRAGI ESTRADA PCP - Primary care physician 2023--16 2024-09-12 Hong Abdi PCP - Primary care physician 2024-09-12 Imaging Narrative Notes
--- OUTSIDE RECORDS SUMMARY | 2025-09-16 17:51 | XMS_ITS | Continuity of Care Document ---
Author Organization [facility], [facility] Address [address] [place] [address] [address] Care Team Providers Care Rn Disease Management Name Role Phone SEAN CARLOS Primary Care [...] Not Available [facility] [address], [place], [address], 03/06/2025 03:58:26 03/06/20 25 03/06/2025 [UNIT Y] ANEUP LOIDY NIPT sex chromosome aneuploidy NOT DETECT ED normal Not Available [facility] [address], [place], [address], 03/06/2025 03:58:26 03/06/20 25 03/06/2025 [UNIT Y] ANEUP LOIDY NIPT monosomy X LOW RISK <1 in 10,000 normal Not Available [facility] [address], [place], [address], 03/06/2025 03:58:26 03/06/20 25 03/06/2025 [UNIT Y] ANEUP LOIDY NIPT trisomy 13 LOW RISK <1 in 10,000 normal Not Available [facility] [address], [place], [address], 03/06/2025 03:58:26 03/06/20 25 03/06/2025 [UNIT Y] ANEUP LOIDY NIPT trisomy 18 LOW RISK <1 in 10,000 normal Not Available [facility] [address], [place], [address], 03/06/2025 03:58:26 03/06/20 25 03/06/2025 [UNIT Y] ANEUP LOIDY NIPT trisomy 21 LOW RISK <1 in 10,000 normal Not Available [facility] [address], [place], [address], 03/06/2025 03:58:26 03/06/20 25 03/06/2025 [UNIT Y] ANEUP LOIDY NIPT sex FEMALE normal Not Available [facility] [address], [place], [address], 03/06/2025 03:58:26 03/06/20 25 03/06/2025 [UNIT Y] ANEUP LOIDY NIPT gestation SINGLE TON normal Not Available [facility] [address], [place], [address], 03/06/2025 03:58:26 03/06/20 25 03/06/2025 [UNIT Y] ANEUP LOIDY NIPT for detailed report, see pdf See PDF normal Not Available [facility] [address], [place], [address], 03/06/2025 03:58:26 03/02/20 25 03/02/2025 CULTU RE: URINE result report SEE RESULT S BELOW Test: Cultu re: Urine Speci men Sourc e: Urine - Clean Catch Speci men Type: Urine Speci men Date: 025 1455 Resul t Date: 2138 Resul t Statu s: Final resul t Abnor mal: No Resul ting Lab: [facility] [address] [address] Tel: CULTU RE ----- ----- ----- --- No growt h in 1 day (dete ction level of 10,00 0 colon ies / ml.) Not Available [facility] (Lab) [address], [place], [address], 03/03/2025 22:42:27 03/12/2003/12/2025 CULTU RE: URINE result report SEE RESULT S BELOW Test: Cultu re: Urine Speci men Sourc e: Urine - Clean Catch Speci men Type: Urine Speci men Date: 2024 1600 Resul t Date: 2024 0610 Resul t Statu s: Final resul t Abnor mal: No Resul ting Lab: [facility] [address] [address] Tel: CULTU RE ----- ----- ----- --- No growt h in 1 day (dete ction level of 10,00 0 colon ies / ml.) Not Available [facility] (Lab) [address], [place], [address], 03/14/2025 07:15:03 03/12/2003/12/2025 urina lysis , dipst ick Leukocytes ++ Not Available [address], [place], [address], 03/12/2025 16:45:06 03/12/2003/12/2025 urina lysis , dipst ick Protein + Not Available [facility] [address], [place], [address], 03/12/2025 16:45:06 03/12/20 25 03/12/2025 urina lysis , dipst ick pH 5 Not Available [facility] [address], [place], [address], 03/12/2025 16:45:06 03/12/20 25 03/12/2025 urina lysis , dipst ick Blood trace Not Available [facility] [address], [place], [address], 03/12/2025 16:45:06 03/12/20 25 03/12/2025 urina lysis , dipst ick Specific [place] 1.015 Not Available [facility] [address], [place], [address], 03/12/2025 16:45:06 03/12/20 25 03/12/2025 urina lysis , dipst ick Ketone +++ Not Available [facility] [address], [place], [address], 03/12/2025 16:45:06 03/31/20 25 03/31/2025 TSH, REFLE X FREE T4 TSH 0.42 uIU/m L 0.30-5 .33 Not Available [facility] (Lab) [address], [place], [address], 04/01/2025 03:05:12 03/31/20 25 03/31/2025 CULTU RE: URINE result report SEE RESULT S BELOW Test: Cultu re: Urine Speci men Sourc e: Urine Voide d Speci men Type: Urine Speci men Date: 1710 Resul t Date: 2256 Resul t Statu s: Final resul t Abnor mal: No Resul ting Lab: [facility] [address] [address] Tel: CULTU RE ----- ----- ----- --- Cultu re resul t (>=3 organ isms prese nt) indic ates possi ble conta minat ion. Repea t cultu re if sympt oms indic ate. Not Available [facility] (Lab) [address], [place], [address], 04/01/2025 23:59:19 03/31/20 25 03/31/2025 urina lysis , dipst ick Leukocytes +1 Not Available [facility] [address], [place], [address], 03/31/2025 09:23:13 03/31/20 25 03/31/2025 urina lysis , dipst ick Nitrite normal Not Available [facility] [address], [place], [address], 03/31/2025 09:23:13 03/31/20 25 03/31/2025 urina lysis , dipst ick Urobilinogen normal Not Available [facility] [address], [place], [address], 03/31/2025 09:23:13 03/31/20 25 03/31/2025 urina lysis , dipst ick Protein trace Not Available [facility] [address], [place], [address], 03/31/2025 09:23:13 03/31/20 25 03/31/2025 urina lysis , dipst ick pH 5 Not Available [facility] [address], [place], [address], 03/31/2025 09:23:13 03/31/20 25 03/31/2025 urina lysis , dipst ick Specific [place] 1.020 [facility] Available [facility] [address], [place], [address], 03/31/2025 09:23:13 03/31/20 25 03/31/2025 urina lysis , dipst ick Ketone normal Not Available [facility] [address], [place], [address], 03/31/2025 09:23:13 03/31/20 25 03/31/2025 urina lysis , dipst ick Bilirubin normal Not Available [facility] [address], [place], [address], 03/31/2025 09:23:13 03/31/20 25 03/31/2025 urina lysis , dipst ick Glucose normal Not Available [facility] [address], [place], [address], 03/31/2025 09:23:13 03/31/20 25 03/31/2025 urina lysis , dipst ick Appearance normal Not Available [facility] [address], [place], [address], 03/31/2025 09:23:13 03/31/20 25 03/31/2025 urina lysis , dipst ick Color normal Not Available [facility] [address], [place], [address], 03/31/2025 09:23:13 04/01/20 25 04/01/2025 [facility]IS bacterial vaginosis (bv), tma Negati ve negati ve Not Available [facility] (Lab) [address] [place], [address], 04/02/2025 14:08:45 04/01/20 25 04/01/2025 [facility], DENIS mekhi species, tma Negati ve negati ve Not Available [facility] (Lab) [address] [place], [address], 04/02/2025 14:08:45 04/01/20 25 04/01/2025 [facility] SWAB PLUS, DENIS mekhi glabrata, tma Negati ve negati ve Not Available [facility] (Lab) [address] [place], [address], 04/02/2025 14:08:45 04/01/20 25 04/01/2025 [facility]OM[facility] SWAB PLUS, DENIS trichomonas vaginalis, tma Negati ve negati ve Not Available [facility] (Lab) [address] [place], [address], 04/02/2025 14:08:45 04/01/20 25 04/01/2025 [facility], DENIS chlamydia trachomatis, PCR Negati ve negati ve Not Available [facility] (Lab) [address] [place], [address], 04/02/2025 14:08:45 04/01/20 25 04/01/2025 [facility], DENIS neisseria gonorrhoeae, [...] ded in this panel . Not Available [facility] (Lab) [address] , [place], [address], 04/02/2025 14:08:45 04/22/2004/22/2025 CULTU RE: URINE result report SEE RESULT S BELOW Test: Cultu re: Urine Speci men Sourc e: Urine Voide d Speci men Type: Urine Speci men Date: 2024 1314 Resul t Date: 2024 0322 Resul t Statu s: Final resul t Abnor mal: No Resul ting Lab: [facility] [address] [address] Tel: CULTU RE ----- ----- ----- --- No growt h in 1 day (dete ction level of 10,00 0 colon ies / ml.) Not Available [facility] (Lab) [address], [place], [address], 04/24/2025 04:28:01 04/22/20 25 04/22/2025 urina lysis , dipst ick Leukocytes + Not Available [address], [place], [address], 04/22/2025 10:01:51 04/22/20 25 04/22/2025 urina lysis , dipst ick Protein + Not Available [facility] [address], [place], [address], 04/22/2025 10:01:51 04/22/20 25 04/22/2025 urina lysis , dipst ick pH 8 Not Available [facility] [address], [place], [address], 04/22/2025 10:01:51 04/22/20 25 04/22/2025 urina lysis , dipst ick Blood + Not Available [facility] [address], [place], [address], 04/22/2025 10:01:51 04/22/20 25 04/22/2025 urina lysis , dipst ick Specific [place] 1.010 Not Available [facility] [address], [place], [address], 04/22/2025 10:01:51 04/22/20 25 04/22/2025 urina lysis , dipst ick Ketone + Not Available [facility] [address], [place], [address], 04/22/2025 10:01:51 06/23/20 25 06/23/2025 HEMAT OCRIT (HCT) HCT 35.6 % (based on docume nted legal sex) 34.0-4 5.0 Not Available [facility] (Lab) [address], [place], [address], 06/24/2025 11:45:32 06/23/20 25 06/23/2025 HEMOG LOBIN (HGB) HGB 11.1 g/dL (based on docume nted legal sex) 11.6-1 5.4 low Not Available [facility] (Lab) [address], [place], [address], 06/24/2025 11:45:32 06/23/20 25 06/23/2025 GTT - GESTA ROLAND L SCREE N, ACOG OB glucose, 1 hour screen 180 mg/dL 70-135 high Not Available [facility] (Lab) [address], [place], [address], 06/24/2025 11:45:33 06/23/20 25 06/23/2025 HIV 1/2 ANTIG EN/AN TIBOD Y, REFLE X CONFI RMATI ON HIV antigen/anti body Nonrea ctive nonrea ctive HIV-1 antig en and HIV-1 /HIV- 2 antib odies were not detec greg. No labor atory evide nce of HIV infec tion. Not Available [facility] (Lab) [address], [place], [address], 06/24/2025 11:45:33 06/23/20 25 06/23/2025 RPR SCREE N, REFLE X TITER /CONF IRMAT ION RPR qualitative Nonrea ctive nonrea ctive Not Available [facility] (Lab) [address], [place], [address], 06/24/2025 11:45:34 07/21/20 25 07/21/2025 CULTU RE: URINE result report SEE RESULT S BELOW Test: Cultu re: Urine Speci men Sourc e: Urine - Clean Catch Speci men Type: Urine Speci men Date: 2024 1024 Resul t Date: 2024 0252 Resul t Statu s: Final resul t Abnor mal: No Resul ting Lab: [facility] [address] [address] Tel: CULTU RE ----- ----- ----- --- No growt h in 1 day (dete ction level of 10,00 0 colon ies / ml.) Not Available [facility] (Lab) [address], [place], [address], 07/23/2025 03:57:01 07/21/2007/21/2025 urina lysis , dipst ick Leukocytes ++ Not Available [address], [place], [address], 07/21/2025 11:03:04 07/21/20 25 07/21/2025 urina lysis , dipst ick Nitrite neg Not Available [address], [place], [address], 07/21/2025 11:03:04 07/21/20 25 07/21/2025 urina lysis , dipst ick Urobilinogen neg Not Available [facility], [place], [address], 07/21/2025 11:03:04 07/21/20 25 07/21/2025 urina lysis , dipst ick Protein + Not Available [facility] [address], [place], [address], 07/21/2025 11:03:04 07/21/20 25 07/21/2025 urina lysis , dipst ick pH 5 Not Available [facility] [address], [place], [address], 07/21/2025 11:03:04 07/21/20 25 07/21/2025 urina lysis , dipst ick Specific [place] 1.030 [facility] Available [facility] [address], [place], [address], 07/21/2025 11:03:04 07/21/20 25 07/21/2025 urina lysis , dipst ick Ketone +++ Not Available [facility] [address], [place], [address], 07/21/2025 11:03:04 07/21/20 25 07/21/2025 urina lysis , dipst ick Bilirubin neg Not Available [facility] [address], [place], [address], 07/21/2025 11:03:04 07/21/20 25 07/21/2025 urina lysis , dipst ick Glucose neg Not Available [facility] [address], [place], [address], 07/21/2025 11:03:04 07/21/20 25 07/21/2025 urina lysis , dipst ick Appearance cloudy Not Available [address], [place], [address], 07/21/2025 11:03:04 07/21/20 25 07/21/2025 urina lysis , dipst ick Color dark Not Available [facility] [address], [place], [address], 07/21/2025 11:03:04 08/04/20 25 08/04/2025 CMP(C OMPRE HENSI VE METAB OLIC PANEL ) sodium 138 mmol/ L 133-14 6 Not Available [facility] (Lab) [address], [place], [address], 08/05/2025 13:39:18 08/04/20 25 08/04/2025 CMP(C OMPRE HENSI VE METAB OLIC PANEL ) potassium 4.0 mmol/ L 3.5-5. 1 Not Available [facility] (Lab) [address], [place], [address], 08/05/2025 13:39:18 08/04/20 25 08/04/2025 CMP(C OMPRE HENSI VE METAB OLIC PANEL ) chloride 105 mmol/ L 98-107 Not Available [facility] (Lab) [address], [place], [address], 08/05/2025 13:39:18 08/04/20 25 08/04/2025 CMP(C OMPRE HENSI VE METAB OLIC PANEL ) carbon dioxide 25 mmol/ L 21-31 Not Available [facility] (Lab) [address], [place], [address], 08/05/2025 13:39:18 08/04/20 25 08/04/2025 CMP(C OMPRE HENSI VE METAB OLIC PANEL ) anion gap 8 mmol/ L 4-13 Not Available [facility] (Lab) [address], [place], [address], 08/05/2025 13:39:18 08/04/20 25 08/04/2025 CMP(C OMPRE HENSI VE METAB OLIC PANEL ) blood urea nitrogen 10 mg/dL 7-25 Not Available [facility] (Lab) [address], [place], [address], 08/05/2025 13:39:18 08/04/20 25 08/04/2025 CMP(C OMPRE HENSI VE METAB OLIC PANEL ) creatinine 0.41 mg/dL 0.60-1 .30 low Not Available [facility] (Lab) [address], [place], [address], 08/05/2025 13:39:18 08/04/20 25 08/04/2025 CMP(C OMPRE HENSI VE METAB OLIC PANEL ) egfrcr (CKD-epi 2020) >90 mL/mi n/1.7 3_m2 >=60 Not Available [facility] (Lab) [address], [place], [address], 08/05/2025 13:39:18 08/04/20 25 08/04/2025 CMP(C OMPRE HENSI VE METAB OLIC PANEL ) calcium 8.9 mg/dL 8.3-10 .5 Not Available [facility] (Lab) [address], [place], [address], 08/05/2025 13:39:18 08/04/20 25 08/04/2025 CMP(C OMPRE HENSI VE METAB OLIC PANEL ) glucose 116 mg/dL 70-100 high Not Available [facility] (Lab) [address], [place], [address], 08/05/2025 13:39:18 08/04/20 25 08/04/2025 CMP(C OMPRE HENSI VE METAB OLIC PANEL ) protein, total 6.1 g/dL 6.4-8. 3 low Not Available [facility] (Lab) [address], [place], [address], 08/05/2025 13:39:18 08/04/20 25 08/04/2025 CMP(C OMPRE HENSI VE METAB OLIC PANEL ) albumin 3.5 g/dL 3.5-5. 0 Not Available [facility] (Lab) [address], [place], [address], 08/05/2025 13:39:18 08/04/20 25 08/04/2025 CMP(C OMPRE HENSI VE METAB OLIC PANEL ) ALT 11 units /L 9-43 Not Available [facility] (Lab) [address], [place], [address], 08/05/2025 13:39:18 08/04/20 25 08/04/2025 CMP(C OMPRE HENSI VE METAB OLIC PANEL ) alkaline phosphatase 98 units /L 34-104 Not Available [facility] (Lab) [address], [place], [address], 08/05/2025 13:39:18 08/04/20 25 08/04/2025 CMP(C OMPRE HENSI VE METAB OLIC PANEL ) AST 15 units /L 13-39 Not Available [facility] (Lab) [address], [place], [address], 08/05/2025 13:39:18 08/04/20 25 08/04/2025 CMP(C OMPRE HENSI VE METAB OLIC PANEL ) bilirubin, total 0.3 mg/dL 0.2-1. 2 Not Available [facility] (Lab) [address], [place], [address], 08/05/2025 13:39:18 08/04/20 25 08/04/2025 BILE ACIDS , TOTAL bile acids, total 4 umol/ L 0-10 Test Perfo rmed by: Luke hern[facility]dez [facility] [address] [address] Not Available [facility] (Lab) [address], [place], [address], 08/05/2025 13:39:19 03/02/20 25 03/02/2025 US, obste tric, nucha l trans lucen cy No observ ation record ed. [email or web address] [facility] [address], [place], [address], 03/02/2025 13:35:30 03/02/20 25 03/02/2025 US, obste tric, nucha l trans lucen cy No observ ation record ed. [email or web address] [address], [place], [address], 03/03/2025 14:08:39 03/08/20 25 03/08/2025 US, obste tric, 1st trime ster No observ ation record ed. [email or web address] [facility] [address], [place], [address], 03/08/2025 12:22:22 03/08/20 25 03/08/2025 US, obste tric, 1st trime ster No observ ation record ed. [email or web address] [address], [place], [address], 03/10/2025 15:03:13 04/01/20 25 03/24/2025 qamar r monit or No observ ation record ed. [address], [address], 04/08/2025 12:36:45 04/01/20 25 03/22/2025 qamar r monit or No observ ation record ed. [address] (Pulmonary) [address] [place] [address] [place] [address], [address], 04/06/2025 08:59:34 04/20/20 25 04/20/2025 US, obstanna tric, limit ed No observ ation record ed. [email or web address] [facility] [address], [place], [address], 04/20/2025 17:39:30 04/20/20 25 04/20/2025 US, obste tric, follo w-up No observ ation record ed. [email or web address] [address] [place] [address] [address], [place], [address], 04/23/2025 08:32:54 04/28/20 25 04/28/2025 US, obste tric, 2nd or 3rd trime ster No observ ation record ed. [email or web address] [facility] [address], [place], [address], 04/28/2025 17:48:42 04/28/20 25 04/28/2025 US, obste tric, 2nd or 3rd trime ster No observ ation record ed. [email or web address] [address], [place], [address], 05/04/2025 22:16:11 05/07/20 25 05/07/2025 non-s tress test No observ ation record ed. [address], [place], [address], 05/28/2025 13:33:54 05/21/20 25 05/21/2025 CT, head + brain , w/o contr ast No observ ation record ed. [place] [id number] [facility] [address], [place], [address], 05/24/2025 13:48:57 05/28/20 25 05/28/2025 US, obste tric, follo w-up No observ ation record ed. [email or web address] [place] [address], [place], [address], 05/28/2025 17:32:34 05/28/20 25 05/28/2025 US, obste tric, follo w-up No observ ation record ed. [email or web address] [address], [place], [address], 06/01/2025 15:13:13 06/08/20 25 06/07/2025 US, obste tric, follo w-up No observ ation record ed. [facility] [address], [place], [address], 06/15/2025 10:53:46 07/07/20 25 07/07/2025 US, obste tric, follo w-up No observ ation record ed. [email or web address] [place] [address], [place], [address], 07/07/2025 13:18:01 07/07/20 25 07/07/2025 US, obste tric, follo w-up No observ ation record ed. [email or web address] [address], [place], [address], 07/07/2025 11:29:37 08/04/20 25 08/04/2025 US, obste tric, follo w-up No observ ation record ed. [email or web address] [facility] [address], [place], [address], 08/04/2025 15:08:50 08/04/20 25 08/04/2025 US, obste tric, follo w-up No observ ation record ed. [email or web address] [address], [place], [address], 08/06/2025 10:41:50 08/11/20 25 08/11/2025 non-s tress test No observ ation record ed. [email or web address] [facility] [address], [place], [address], 08/11/2025 17:37:52 08/11/20 non-s tress test No observ ation record ed. [email or web address] [facility] [address], [place], [address], 08/11/2025 17:38:11 08/15/20 25 08/15/2025 non-s tress test No observ ation record ed. [place] [id number], [place], [address], 08/21/2025 10:18:57 08/15/2008/15/2025 US, obste tric, bioph ysica l profi le No observ ation record ed. [address], [place], [address], 08/17/2025 10:50:53 08/18/2008/18/2025 US, obste tric, bioph ysica l profi le + non-s tress test No observ ation record ed. [email or web address] [facility] [address], [place], [address], 08/18/2025 10:21:39 08/18/2008/18/2025 US, obste tric, bioph ysica l profi le + non-s tress test No observ ation record ed. [email or web address] [address], [place], [address], 08/18/2025 10:35:44 08/18/2008/18/2025 non-s tress test No observ ation record ed. [facility] [address], [place], [address], 08/18/2025 17:34:03 08/18/20 non-s tress test No observ ation record ed. [email or web address] [facility] [address], [place], [address], 08/18/2025 16:06:09 08/25/2008/25/2025 US, obste tric, bioph ysica l profi le + non-s tress test No observ ation record ed. [email or web address] [facility] [address], [place], [address], 08/25/2025 18:52:06 08/25/20 25 08/25/2025 US, obste tric, follo w-up No observ ation record ed. [email or web address] [address], [place], [address], 08/25/2025 15:47:28 08/25/20 25 08/25/2025 non-s tress test No observ ation record ed. [email or web address] [facility] [address], [place], [address], 08/25/2025 18:12:15 08/25/20 non-s tress test No observ ation record ed. [facility] [address], [place], [address], 08/25/2025 17:21:19 08/30/20 25 08/30/2025 non-s tress test No observ ation record ed. [address], [place], [address], 09/15/2025 15:26:49 09/01/20 25 09/01/2025 non-s tress test No observ ation record ed. [place] [id number] [facility] [address], [place], [address], 09/13/2025 11:32:22 09/01/20 25 09/01/2025 US, mistye tric No observ ation record ed. [place] [id number] [facility] [address], [place], [address], 09/02/2025 15:56:01 09/01/20 25 09/01/2025 non-s tress test No observ ation record ed. [email or web address] [id number] [facility] [address], [place], [address], 09/02/2025 14:32:38 09/16/20 09/16/2025 imagi ng/di agnos tic resul t No observ ation record ed. [facility] [address], [place], [address], 09/16/2025 18:07:05 Result Notes None recorded. Problems Name Problem SNOMED Code Status Onset Date Resolution Date Notes Provider Name and Address Organization Details Recorded Time Hypereme sis [id number] Completed phenerga n now prn Asia ramos [facility] 2 16:43:51 Anxiety in pregnanc y [id number] [id number] Completed will continue to monitor Asia ramos [facility] 2 16:43:51 Past pregnanc y history of gestatio nal diabetes mellitus [id number] Completed Early 1 hr GTT @ 20wks 11/03 APPT Asia ramos [facility] 2 16:43:51 Spinal muscular atrophy 5202887 Completed [place]rier - Not in contact with FOB. Asia ramos [facility] 2 16:43:51 Anxiety 90948722 Completed prozac Karina ramos [facility] 4 11:00:46 Nausea [id number] Completed d/c zofran pump 11/08 per pt request Karina ramos [facility] 4 11:00:46 Postpart um hemorrha ge [id number] Completed hx 2017 with d&c Karina ramos [facility] 4 11:00:46 Normal pregnanc y in multigra jessy [id number] Completed 201907/05/2021 Encounte r for supervis ion of other normal pregnanc y, 3rd trimeste r;Record ed Elsewher e: No Locat ion: Jaelyn castillo [facility] S ource: EHR Pit Manager yvrose: N Natalyati ce ID: [id number] Gigi lable Time: 10:45:00 AM Karina ramos [facility] 10:15:27 Gestatio n period, 37 weeks [id number] Completed 201907/05/2021 37 weeks gestatio n of pregnanc y;Record ed Elsewher e: No [facility] Pit Manager yvrose: N Natalyati ce ID: [id number] Gigi lable Time: 09:00:00 AM Karina ramos [facility] 10:15:[address] Concept Completed 201907/05/2021 Matern care for abnlt fetl hrt rate or rhym, 3rd tri, unsp;Rec orded Elsewher e: No [facility] EHR Pit Manager yvrose: N Natalyati ce ID: [id number] Gigi lable Time: 08:45:00 AM Karina ramos [facility] 10:15:29 Gestatio nal diabetes mellitus [id number] Completed 201907/05/2021 Gestatio nal diabetes mellitus in pregnanc y, diet controll ed;Recor ded Elsewher e: No Locat ion: [facility] S ource: EHR Pit Manager yvrose: N Natalyati ce ID: 0001 Gigi lable Time: 11:45:00 AM Karina ramos [facility] 10:15:25 Gestatio n period, 38 weeks 34904040 Completed 201907/05/2021 38 weeks gestatio n of pregnanc y;Record ed Elsewher e: No Locat ion: [facility] S ource: EHR Pit Manager yvrose: N Practi ce ID: [id number] Gigi lable Time: 11:30:00 AM Karina ramos [facility] 10:15:13 Amenorrh ea 67843877 Completed 202007/10/2021 Tammi Jones null, [facility] 13:08:35 Pregnanc y 75594343 Completed 202003/29/2022 Emma Dykes null, [facility] 12:28:48 Pregnanc y 79710539 Completed 202304/22/2024 Emma Dykes null, [facility] 12:28:48 Headache 69018603 Active 2023 Karina Burroughs null, [facility] 16:19:28 Pregnanc y 42359319 Completed 202309/14/2025 Emma Dykes null, [facility] 12:28:48 Uncompli cated moderate persiste nt asthma 777126242 Completed 2024 albutero l prn Shawn Bradley MD [address], [place], [address], [facility] 13:08:36 Anxiety 48127105 Completed 2024 sertrali ne started 03/02/25 changed to prozac 10 on Shawn Bradley MD [address], [place], [address], [facility] 17:05:48 Nausea and vomiting 89900078 Completed 2024 Shawn Bradley MD [address], [place], [address], [facility] 13:20:27 Placenta circumva llata 6796300 Completed 2024 32wk growth Ryann Castro null, [facility] 5 09:44:35 Frequent headache 730424368 Completed 2024 transpor t to [facility] 05/21, discharg e 05/23 MF referral faxed [...] than 2-3 times a week. Ryann ramos [facility] 5 10:55:26 Abnormal placenta affectin g manageme nt of mother 79920852 Completed 2024 MCI serial growth us Ryann ramos [facility] 5 10:46:25 Iron deficien cy anemia 52805367 Com[facility] venofer 200mg x1 HGB 10.6 Ryann ramos [facility] 5 15:21:25 Gestatio nal diabetes mellitus 88048326 Completed 2024 checking bs QID - ruled in GDM Referral faxed to [facility] 07/07 Ryann ramos [facility] 5 14:36:52 Notes:[facility], and home health already caring for pt. Vladimir RDZ at [phone] Problem Notes None recorded. Procedures Surgical History Date Name Laterality Status Provider Name and Address Organization Details Recorded Time 025 SALPINGECTOMY, LAPAROSCOPIC (SURG) completed Not Available [facility] 09/06/2025 11:19:17 025 Date of Last Pap Smear completed Karina Burroughs [facility] 01/28/2025 11:19:42 024 Nexplanon Removal completed Shawn Bradley MD [address], [place], [address], [facility] 08/05/2024 15:09:58 024 Control Implant Insertion completed Anju Mcnamara CNM [address], [place], [address], [facility] 05/08/2024 17:59:34 024 cholecystectomy completed Karina Burroughs [facility] 03/31/2025 09:18:57 018 Dilation and Curettage completed Karina Burroughs [facility] 07/05/2021 10:17:50 Imaging Results None recorded. Procedure Notes None recorded. Medical Equipment None Reported. Allergies Allergen ID Allergen Name Allergen Category Reaction Reaction Severity Criticality Documentation Date Start Date Code Code System Note Provider Name and Address Organization Details Recorded Time 98242 terbutali ne medicatio n anaphylax is Not available Not available 01/27/20252021 12487 RxNorm Karina ramos, [facility] 16:19:27 65765 amoxicill in medicatio n Not available Not available Not available 09/10/2025 723 RxNorm Not Available gene - External Data Service - prod 16:39:37 43379 terbinafi ne medicatio n anaphylax is Not available [facility] 09/10/20252024 74171 RxNorm Not Available [employer] External Data Service - prod 16:40:54 Medications [...] Prescrib ed Elsewher e: Yes Loca tion: [facility] odify By: prabhjot Lee r DateTime [...] n (supplie d by office) insert lot [id number] Exp 01/2026 Not Available Not Available Not Available 28 mg iron-800 mcg tablet 07/05 completed Prescrib ed Elsewher e: Yes Loca tion: [facility] odify By: prabhjot Lee r DateTime : 01/14/20 10:45:00 AM Not Available Not Available Not Available lidocaine 5 % topical ointment APPLY OINTMENT EXTERNAL LY TO RIBS THREE TIMES DAILY NEEDED 01/14 completed Not Available Not Available Not Available [facility] A 28 mg iron-1 mg-200 mg capsule [...] Address Organization Details Last Updated DateTime 08/25/2025 75880.99370 g 108/72 mm[Hg] Melyssa Santo [facility] 08/25/2025 15:41:08 Date Recorded Body height Body mass index (BMI) Body weight Systolic And Diastolic Provider Name and Address Organization Details Last Updated DateTime 08/25/2025 162.56 cm 31.6 kg/m2 04224 g 108/72 mm[Hg] Emma Dykes [facility] 08/25/2025 17:18:37 Social History Question Answer Notes LastModified by Organizat ion Details LastModified Time Tobacco Smoking Status Former Smoker Karina ramos, [facility] 07/05/2021 09:06:21 If You Are , What Was Your Level Of Alcohol Consumption Prior To ? Occasional [email or web address] Information not available 03/31/2025 Are You Blind Or Do You Have Difficulty Seeing? No [email or web address] Information not available 07/05/2021 What Is Your Level Of Caffeine Consumption? Heavy [email or web address] Information not available 07/05/2021 In The 14 Days Before Symptom Onset, Have You Had Close Contact With A Laboratory-confir [facility] COVID-19 While That Case Was Ill? No Information not available 07/05/2021 In The 14 Days Before Symptom Onset, Have You Had Close Contact With A Person Who Is Under Investigation For COVID-19 While That Person Was Ill? No [email or web address] Information not available 07/05/2021 Have You Been To An Area Known To Be High Risk For COVID-19? No [email or web address] Information not available 07/05/2021 Are You Deaf Or Do You Have Serious Difficulty Hearing? No [email or web address] Information not available 07/05/2021 What Type Of Diet Are You Following? REGULAR [email or web address] Information not available 07/05/2021 Which Illicit Or Recreational Drugs Have You Used? Marijuana [email or web address] Information not available 07/05/2021 Have You Ever Been Counseled For Unhealthy Alcohol Use? No [email or web address] Information not available 07/05/2021 Do You Use Your Seat Belt Or Car Seat Routinely? Yes [email or web address] Information not available 07/05/2021 Do You Have Smoke And Carbon Monoxide Detectors In Your Home? Yes [email or web address] Information not available 07/05/2021 Do You Use Sunscreen Routinely? Yes [email or web address] Information not available 07/05/2021 Has Tobacco Cessation Counseling Been Provided? No [email or web address] Information not available 07/05/2021 Have You Used IV Drugs? No [email or web address] Information not available 07/05/2021 Do You Have Difficulty Walking Or Climbing Stairs? No [email or web address] Information not available 12/06/2021 Sex: Unknown Functional Status Question Answer Note LastModified by Organizat ion Details LastModified Time Do you use any illicit or recreational drugs? Yes [email or web address] Information not available 07/05/2021 Do you or have you ever used any other forms of tobacco or nicotine? Yes [email or web address] Information not available 07/05/2021 What is your level of alcohol consumption? None [email or web address] Information not available 03/31/2025 Do you or have you ever used smokeless tobacco? Never used smokeless tobacco [email or web address] Information not available 07/05/2021 Are you able to walk independently without assistance or assistive devices? YESWOREST [email or web address] Information not available 07/05/2021 Are you able to care for yourself independently? Yes [email or web address] Information not available 12/06/2021 Do you have difficulty dressing, bathing, grooming, or toileting? No [email or web address] Information not available 12/06/2021 Do you or have you ever used e-cigarettes or vape? Current user of electronic cigarettes [email or web address] Information not available 07/05/2021 What is your exercise level? Occasional Information not available 07/05/2021 Mental Status Question Answer Note LastModified by Organization D etails LastModified Time Do you feel stressed (tense, restless, nervous, or anxious, or unable to sleep at night)? [id number] [email or web address] Information not available 07/05/2021 Family History Relationship Description Onset Age of this Age Resolved Age Notes LastModified by Organization Details LastModified Time Father No current problems or disability [email or web address] Not available 05/2021 09:06:31 Mother No current problems or disability [email or web address] Not available 05/2021 09:06:31 Medical History Condition [...] ICD10 Code Diagnosis IMO Codes Diagnosis Note [id number] Shawn Bradley MD [facility] [address],[place] [address] 08/04/2025 14:02:59 08/04/2025 15:06:33 Gestational diabetes mellitus 99104033 O24.410 O43.103 O43.113 Z3A.34 85205866 [id number] [facility] [address] [place] [address] 08/04/2025 14:21:57 08/04/2025 15:26:03 Gestation period, 34 weeks 92045694 Z3A.34 3832310 Pruritic d isorder of skin 3729740044 L29.9 87019 plan labs today, ursadiol BID [id number] [facility] [address] [place] [address] 08/11/2025 14:51:38 08/11/2025 17:16:44 Gestational diabetes mellitus 79093238 O24.414 60236917 [id number] Anju Mcnamara CNM [facility] [address] [place] [address] 08/11/2025 16:25:59 08/11/2025 17:46:32 Gestational diabetes mellitus 85312279 O24.414 88488784 [id number] Shawn Bradley MD [facility] [address] [place] [address] 08/18/2025 09:40:51 08/18/2025 10:15:47 Gestational diabetes mellitus 72852968 O24.414 Z3A.36 56824678 [id number] [facility] [address] [place] [address] 08/18/2025 09:41:06 08/18/2025 11:24:04 Gestation period, 36 weeks 82454335 Z3A.36 5908746 cont pnv [id number] Anju Mcnamara CNM [facility] [address],[place] [address] 08/18/2025 09:41:16 08/18/2025 16:17:31 Gestational diabetes mellitus class A2 29084263 O24.414 99416297 [id number] Shawn Bradley MD [facility] [address],[place] [address] 08/25/2025 14:26:29 08/25/2025 15:14:02 Gestational diabetes mellitus 02627815 O24.414 55749364 [id number] Anju Mcnamara CNM [facility] [address],[place] [address] 08/25/2025 14:26:57 08/25/2025 15:53:52 Gestation period, 37 weeks 13895599 Z3A.37 4675456 continue vitamin [id number] Anju Mcnamara CNM [facility] [address],[place] [address] 08/25/2025 16:48:00 08/25/2025 17:20:42 Gestational diabetes mellitus 05251699 O24.419 [id number] Health Concerns Section Related Observation LastModified by Organization Detai ls LastModified Time None Recorded Concern Status LastModified by Organization Details LastModified Time None Recorded Payers Encounter Date Sequence Insurance Name Policy Number Policy Roberts Covered Member ID Roberts Member ID Guarantor Name 08/25/2025 1 [facility] (MEDICAID HMO) [id number] Yuni Mejia [id number] Yuni Mejia Notes Date Note Type Note Provider Name and Address Organization Details Recorded Time 08/25/2025 text/html Generic HPI TemplateReported by Patient [address], [place], [address], [facility] 08/25/2025 15:51:24 OBGyn Episode Ob Episode Information Episode Created Date Number of Fetuses Patient Bloodtype Patient rh Status Prepregnancy Weight lbs Domestic Partner Domestic Partner Phone Father Name Executive Advisor Status 03/02/20 25 1 B Positive 164 CLOSED Fetus Data First Name Last Name Admitted to NICU Weight (g) Sex Living Outcome Pediatric Complications Fetus ID Race Codes Race Delivery Type Gladis false 4025.62 9 F true Full Term 70805 Vaginal Delivery Problems Problem Notes SDH form completed 5GI consult Tachycardia Holter monitor 72 order- pt sent back on 03-27-25 Cardiology referral faxed per Dr Martínez office calling pt 04/21 to schedule consult scheduled 05/11 11:15AM Problem Name Start Date End Date Resolution Snomed Code Not e Uncomplicated moderate persistent asthma 03/02/2025 591284482 albuterol prn Abnormal placenta affecting management of mother 05/04/2025 16894927 [facility] serial grow th Iron deficiency anemia 05/25/2025 04050713 [facility] MF tx [place] 200mg x1 HGB 10.6 Nausea and vomiting 03/02/2025 52388062 Anxiety 03/02/2025 42481029 sertralin e started 03/02/25 changed to prozac 10 on Gestational diabetes mellitus 07/08/2025 67137803 checking bs QID - ruled in GDM Referral faxed to [facility] 07/07 Frequent headache 05/03/2025 [id number] [place] [facility] 05/21, discharge 05/23 MF referral faxed 05/24 [facility] Neurology consult pending per KAJAL Pittman [facility]- Neuro [facility] unable to see pt due to insurance 05/25[facility] 07/05/25 Level US & Consult (see [facility] consult zayas recommendations ) regimen prn Imitrex 50mg for acute migraine, vitamin B2 (Riboflavin) 400mg, Coenzyme q10 300mg and magnesium oxide 200 to 600mg daily. minimize use of Excedrin or Tylenol to no more than 2-3 times a week. 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/2025 5152540 32wk growth us Jun Calculation Initial Jun [...] Weight in lbs Pre/Post Dialysis Refused Weight 158.941306852891 BP Diastolic BP Location Tested BP Systolic [...] Weight in lbs Pre/Post Dialysis Refused Weight 158.131262942735 BP Diastolic BP Location Tested BP Systolic [...] Weight in lbs Pre/Post Dialysis Refused Weight 162.848764028870 BP Diastolic BP Location Tested BP Systolic BP Type 78 123 Fetus Heart Rate Present A 148 Fetus Movement A Yes Comments Patient is having having ronny n, cramping and vaginal discharge. went to ed exam done cultures and rx sent, ?FM, await cardiac rehab nurse results rfilled zofran, precautions and education f/u [...] Type Weight in lbs Pre/Post Dialysis Refused 168.903462016288 BP Diastolic BP Location Tested BP Systolic [...] Type Weight in lbs Pre/Post Dialysis Refused 169.846847883589 BP Diastolic BP Location Tested BP Systolic [...] Weight in lbs Pre/Post Dialysis Refused Weight 175.356666018459 BP Diastolic BP Location Tested BP Systolic [...] Weight in lbs Pre/Post Dialysis Refused Weight 182.017922938663 BP Diastolic BP Location Tested BP Systolic [...] Weight in lbs Pre/Post Dialysis Refused Weight 181.310878604469 BP Diastolic BP Location Tested BP Systolic BP Type 73 L arm 131 sitting Fetus Heart Rate Present Fetus Movement A Yes Comments viral URI testied neg at urg ent care, nausea resolved, efw 68%, +FM plan education and precautions f/u 2 weeks diagnosed GDM, 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, gave list reviewed protein vs carb Flowsheet Date 07/21/2025 Gibson Score Blood Edema Fundus Height Fundus Units Glucose Ketones Leukocytes Nitrite Labor Signs Protein Cervic Dilation Cervic Effacement Cervic Station Type Weight in lbs Pre/Post Dialysis Refused Weight 181.195560610280 BP Diastolic BP Location Tested BP Systolic BP Type 78 L arm 127 sitting Fetus Heart Rate Present A 150 Fetus Movement A Yes Comments rpt urine culture +FM review ed blood sugars, meets with maintenance and operations supervisor today, precautions and education f/u 2 weeks [...] Weight in lbs Pre/Post Dialysis Refused Weight 181.398623762899 BP Diastolic BP Location Tested BP Systolic [...] Weight in lbs Pre/Post Dialysis Refused Weight 183.320392155386 BP Diastolic BP Location Tested BP Systolic [...] Type Weight in lbs Pre/Post Dialysis Refused 184.772491559392 BP Diastolic BP Location Tested BP Systolic [...] Type Weight in lbs Pre/Post Dialysis Refused 184.097720312726 BP Diastolic BP Location Tested BP Systolic [...] Type Weight in lbs Pre/Post Dialysis Refused 184.692796235084 BP Diastolic BP Location Tested BP Systolic [...] Weight in lbs Pre/Post Dialysis Refused Weight 184.251377721107 BP Diastolic BP Location Tested BP Systolic [...] Weight in lbs Pre/Post Dialysis Refused Weight 164.939987805662 BP Diastolic BP Location Tested BP Systolic [...]
--- OUTSIDE RECORDS SUMMARY | 2025-09-16 17:51 | XMS_ITS | Continuity of Care Document ---
Author Organization [facility], [facility] Address [address] [place] [address] Care Team Providers Care Behavioral Health Associate Name Role Phone SEAN CARLOS Primary Care [...] Not Available [facility] [address], [place], [address], 03/06/2025 03:58:26 03/06/20 25 03/06/2025 [UNIT Y] ANEUP LOIDY NIPT sex chromosome aneuploidy NOT DETECT ED normal Not Available [facility] [address], [place], [address], 03/06/2025 03:58:26 03/06/20 25 03/06/2025 [UNIT Y] ANEUP LOIDY NIPT monosomy X LOW RISK <1 in 10,000 normal Not Available [facility] [address], [place], [address], 03/06/2025 03:58:26 03/06/20 25 03/06/2025 [UNIT Y] ANEUP LOIDY NIPT trisomy 13 LOW RISK <1 in 10,000 normal Not Available [facility] [address], [place], [address], 03/06/2025 03:58:26 03/06/20 25 03/06/2025 [UNIT Y] ANEUP LOIDY NIPT trisomy 18 LOW RISK <1 in 10,000 normal Not Available [facility] [address], [place], [address], 03/06/2025 03:58:26 03/06/20 25 03/06/2025 [UNIT Y] ANEUP LOIDY NIPT trisomy 21 LOW RISK <1 in 10,000 normal Not Available [facility] [address], [place], [address], 03/06/2025 03:58:26 03/06/20 25 03/06/2025 [UNIT Y] ANEUP LOIDY NIPT sex FEMALE normal Not Available [facility] [address], [place], [address], 03/06/2025 03:58:26 03/06/20 25 03/06/2025 [UNIT Y] ANEUP LOIDY NIPT gestation SINGLE TON normal Not Available [facility] [address], [place], [address], 03/06/2025 03:58:26 03/06/20 25 03/06/2025 [UNIT Y] ANEUP LOIDY NIPT for detailed report, see pdf See PDF normal Not Available [facility] [address], [place], [address], 03/06/2025 03:58:26 03/02/20 25 03/02/2025 CULTU RE: URINE result report SEE RESULT S BELOW Test: Cultu re: Urine Speci men Sourc e: Urine - Clean Catch Speci men Type: Urine Speci men Date: 025 1455 Resul t Date: 2138 Resul t Statu s: Final resul t Abnor mal: No Resul ting Lab: [facility] [address] [facility] [address] Tel: CULTU RE ----- ----- ----- --- No growt h in 1 day (dete ction level of 10,00 0 colon ies / ml.) Not Available [facility] (Lab) [address] [facility], [place], [address], 03/03/2025 22:42:27 03/12/2003/12/2025 CULTU RE: URINE result report SEE RESULT S BELOW Test: Cultu re: Urine Speci men Sourc e: Urine - Clean Catch Speci men Type: Urine Speci men Date: 2024 1600 Resul t Date: 2024 0610 Resul t Statu s: Final resul t Abnor mal: No Resul ting Lab: [facility] [address] [facility] [address] Tel: CULTU RE ----- ----- ----- --- No growt h in 1 day (dete ction level of 10,00 0 colon ies / ml.) Not Available [facility] (Lab) [address] [facility], [place], [address], 03/14/2025 07:15:03 03/12/2003/12/2025 urina lysis , dipst ick Leukocytes ++ Not Available [address], [place], [address], 03/12/2025 16:45:06 03/12/2003/12/2025 urina lysis , dipst ick Protein + Not Available [address], [place], [address], 03/12/2025 16:45:06 03/12/20 25 03/12/2025 urina lysis , dipst ick pH 5 [address], [place], [address], 03/12/2025 16:45:06 03/12/20 25 03/12/2025 urina lysis , dipst ick Blood trace Not Available [address], [place], [address], 03/12/2025 16:45:06 03/12/20 25 03/12/2025 urina lysis , dipst ick Specific Dell 1.015 Not Available [facility] [address], [place], [address], 03/12/2025 16:45:06 03/12/20 25 03/12/2025 urina lysis , dipst ick Ketone +++ Not Available [address], [place], [address], 03/12/2025 16:45:06 03/31/20 25 03/31/2025 TSH, REFLE X FREE T4 TSH 0.42 uIU/m L 0.30-5 .33 Not Available [facility] (Lab) [address] [facility], [place], [address], 04/01/2025 03:05:12 03/31/20 25 03/31/2025 CULTU RE: URINE result report SEE RESULT S BELOW Test: Cultu re: Urine Speci men Sourc e: Urine Voide d Speci men Type: Urine Speci men Date: 1710 Resul t Date: 2256 Resul t Statu s: Final resul t Abnor mal: No Resul ting Lab: [facility] [address] [facility] [address] Tel: CULTU RE ----- ----- ----- --- Cultu re resul t (>=3 organ isms prese nt) indic ates possi ble conta minat ion. Repea t cultu re if sympt oms indic ate. Not Available [facility] (Lab) [address], [place], [address], 04/01/2025 23:59:19 03/31/20 25 03/31/2025 urina lysis , dipst ick Leukocytes +1 [facility] Available [facility] [address], [place], [address], 03/31/2025 09:23:13 03/31/20 25 03/31/2025 urina lysis , dipst ick Nitrite normal Not Available [address], [place], [address], 03/31/2025 09:23:13 03/31/20 25 03/31/2025 urina lysis , dipst ick Urobilinogen normal Not Available [facility] david [address], [place], [address], 03/31/2025 09:23:13 03/31/20 25 03/31/2025 urina lysis , dipst ick Protein trace Not Available [address], [place], [address], 03/31/2025 09:23:13 03/31/20 25 03/31/2025 urina lysis , dipst ick pH 5 Not Available [address], [place], [address], 03/31/2025 09:23:13 03/31/20 25 03/31/2025 urina lysis , dipst ick Specific Dell 1.020 Not Available [facility] [address], [place], [address], 03/31/2025 09:23:13 03/31/20 25 03/31/2025 urina lysis , dipst ick Ketone normal Not Available [address], [place], [address], 03/31/2025 09:23:13 03/31/20 25 03/31/2025 urina lysis , dipst ick Bilirubin normal Not Available [facility] anna [address], [place], [address], 03/31/2025 09:23:13 03/31/20 25 03/31/2025 urina lysis , dipst ick Glucose normal Not Available [address], [place], [address], 03/31/2025 09:23:13 03/31/20 25 03/31/2025 urina lysis , dipst ick Appearance normal Not Available [facility] domingo [address], [place], [address], 03/31/2025 09:23:13 03/31/20 25 03/31/2025 urina lysis , dipst ick Color normal Not Available [address], [place], [address], 03/31/2025 09:23:13 04/01/20 25 04/01/2025 [facility] DENIS bacterial vaginosis (bv), tma Negati ve negati ve Not Available [facility] (Lab) [address] [place], [address], 04/02/2025 14:08:45 04/01/20 25 04/01/2025 [facility], DENIS mekhi species, tma Negati ve negati ve Not Available [facility] (Lab) [address] [place] [place], [address], 04/02/2025 14:08:45 04/01/20 25 04/01/2025 WOMEN 'S HEALT H SWAB PLUS, DENIS mekhi glabrata, tma Negati ve negati ve Not Available [facility] (Lab) [address] [place], [address], 04/02/2025 14:08:45 04/01/20 25 04/01/2025 [facility]OMEN 'S [facility] H SWAB PLUS, DENIS trichomonas vaginalis, tma Negati ve negati ve Not Available [facility] (Lab) [address] [place], [address], 04/02/2025 14:08:45 04/01/20 25 04/01/2025 [facility], DENIS chlamydia trachomatis, PCR Negati ve negati ve Not Available [facility] (Lab) [address] [place], [address], 04/02/2025 14:08:45 04/01/20 25 04/01/2025 [facility] DENIS neisseria gonorrhoeae, [...] ded in this panel . Not Available [facility] (Lab) [address] , [place], [address], 04/02/2025 14:08:45 04/22/2004/22/2025 CULTU RE: URINE result report SEE RESULT S BELOW Test: Cultu re: Urine Speci men Sourc e: Urine Voide d Speci men Type: Urine Speci men Date: 2024 1314 Resul t Date: 2024 0322 Resul t Statu s: Final resul t Abnor mal: No Resul ting Lab: [facility] [address] [facility] [address] Tel: CULTU RE ----- ----- ----- --- No growt h in 1 day (dete ction level of 10,00 0 colon ies / ml.) Not Available [facility] (Lab) [address], [place], [address], 04/24/2025 04:28:01 04/22/20 25 04/22/2025 urina lysis , dipst ick Leukocytes + Not Available [address], [place], [address], 04/22/2025 10:01:51 04/22/20 25 04/22/2025 urina lysis , dipst ick Protein + Not Available [address], [place], [address], 04/22/2025 10:01:51 04/22/20 25 04/22/2025 urina lysis , dipst ick pH 8 Not Available [address], [place], [address], 04/22/2025 10:01:51 04/22/20 25 04/22/2025 urina lysis , dipst ick Blood + Not Available [address], [place], [address], 04/22/2025 10:01:51 04/22/20 25 04/22/2025 urina lysis , dipst ick Specific Dell 1.010 Not Available [facility] [address], [place], [address], 04/22/2025 10:01:51 04/22/20 25 04/22/2025 urina lysis , dipst ick Ketone + Not Available [address], [place], [address], 04/22/2025 10:01:51 06/23/20 25 06/23/2025 HEMAT OCRIT (HCT) HCT 35.6 % (based on docume nted legal sex) 34.0-4 5.0 Not Available [facility] (Lab) [address] [facility], [place], [address], 06/24/2025 11:45:32 06/23/20 25 06/23/2025 HEMOG LOBIN (HGB) HGB 11.1 g/dL (based on docume nted legal sex) 11.6-1 5.4 low Not Available [facility] (Lab) [address] [facility], [place], [address], 06/24/2025 11:45:32 06/23/20 25 06/23/2025 GTT - GESTA ROLAND L SCREE N, ACOG OB glucose, 1 hour screen 180 mg/dL 70-[address] [facility] (Lab) [address] [facility], [place], [address], 06/24/2025 11:45:33 06/23/20 25 06/23/2025 HIV 1/2 ANTIG EN/AN TIBOD Y, REFLE X CONFI RMATI ON HIV antigen/anti body Nonrea ctive nonrea ctive HIV-1 antig en and HIV-1 /HIV- 2 antib odies were not detec greg. No labor atory evide nce of HIV infec tion. Not Available [facility] (Lab) [address] [facility], [place], [address], 06/24/2025 11:45:33 06/23/20 25 06/23/2025 RPR SCREE N, REFLE X TITER /CONF IRMAT ION RPR qualitative Nonrea ctive nonrea ctive Not Available [facility] (Lab) [address] [facility], [place], [address], 06/24/2025 11:45:34 07/21/20 25 07/21/2025 CULTU RE: [...] [facility] [address] Tel: CULTU RE ----- ----- ----- --- No growt h in 1 day (dete ction level of 10,00 0 colon ies / ml.) Not Available [facility] (Lab) [address], [place], [address], 07/23/2025 03:57:01 07/21/2007/21/2025 urina lysis , dipst ick Leukocytes ++ Not Available [address], [place], [address], 07/21/2025 11:03:04 07/21/20 25 07/21/2025 urina lysis , dipst ick Nitrite neg Not Available [address], [place], [address], 07/21/2025 11:03:04 07/21/20 25 07/21/2025 urina lysis , dipst ick Urobilinogen neg Not Available [address], [place], [address], 07/21/2025 11:03:04 07/21/20 25 07/21/2025 urina lysis , dipst ick Protein + Not Available [address], [place], [address], 07/21/2025 11:03:04 07/21/20 25 07/21/2025 urina lysis , dipst ick pH 5 Not Available [address], [place], [address], 07/21/2025 11:03:04 07/21/20 25 07/21/2025 urina lysis , dipst ick Specific Dell 1.030 [facility] Available [facility] [address], [place], [address], 07/21/2025 11:03:04 07/21/20 25 07/21/2025 urina lysis , dipst ick Ketone +++ Not Available [address], [place], [address], 07/21/2025 11:03:04 07/21/20 25 07/21/2025 urina lysis , dipst ick Bilirubin neg Not Available [facility] [address], [place], [address], 07/21/2025 11:03:04 07/21/20 25 07/21/2025 urina lysis , dipst ick Glucose neg Not Available [address], [place], [address], 07/21/2025 11:03:04 07/21/20 25 07/21/2025 urina lysis , dipst ick Appearance cloudy Not Available [address], [place], [address], 07/21/2025 11:03:04 07/21/20 25 07/21/2025 urina lysis , dipst ick Color dark Not Available [address], [place], [address], 07/21/2025 11:03:04 08/04/20 25 08/04/2025 CMP(C OMPRE HENSI VE METAB OLIC PANEL ) sodium 138 mmol/ L 133-14 6 Not Available [facility] (Lab) [address] [facility], [place], [address], 08/05/2025 13:39:18 08/04/20 25 08/04/2025 CMP(C OMPRE HENSI VE METAB OLIC PANEL ) potassium 4.0 mmol/ L 3.5-5. 1 Not Available [facility] (Lab) [address] [facility], [place], [address], 08/05/2025 13:39:18 08/04/20 25 08/04/2025 CMP(C OMPRE HENSI VE METAB OLIC PANEL ) chloride 105 mmol/ L 98-107 Not Available [facility] (Lab) [address] [facility], [place], [address], 08/05/2025 13:39:18 08/04/20 25 08/04/2025 CMP(C OMPRE HENSI VE METAB OLIC PANEL ) carbon dioxide 25 mmol/ L 21-31 Not Available [facility] (Lab) [address] [facility], [place], [address], 08/05/2025 13:39:18 08/04/20 25 08/04/2025 CMP(C OMPRE HENSI VE METAB OLIC PANEL ) anion gap 8 mmol/ L 4-13 Not Available [facility] (Lab) [address] [facility], [place], [address], 08/05/2025 13:39:18 08/04/20 25 08/04/2025 CMP(C OMPRE HENSI VE METAB OLIC PANEL ) blood urea nitrogen 10 mg/dL 7-25 Not Available [facility] (Lab) [address] [facility], [place], [address], 08/05/2025 13:39:18 08/04/20 25 08/04/2025 CMP(C OMPRE HENSI VE METAB OLIC PANEL ) creatinine 0.41 mg/dL 0.60-1 .30 low Not Available [facility] (Lab) [address] [facility], [place], [address], 08/05/2025 13:39:18 08/04/20 25 08/04/2025 CMP(C OMPRE HENSI VE METAB OLIC PANEL ) egfrcr (CKD-epi 2020) >90 mL/mi n/1.7 3_m2 >=60 Not Available [facility] (Lab) [address] [facility], [place], [address], 08/05/2025 13:39:18 08/04/20 25 08/04/2025 CMP(C OMPRE HENSI VE METAB OLIC PANEL ) calcium 8.9 mg/dL 8.3-10 .5 Not Available [facility] (Lab) [address] [facility], [place], [address], 08/05/2025 13:39:18 08/04/20 25 08/04/2025 CMP(C OMPRE HENSI VE METAB OLIC PANEL ) glucose 116 mg/dL 70-100 high Not Available [facility] (Lab) [address] [facility], [place], [address], 08/05/2025 13:39:18 08/04/20 25 08/04/2025 CMP(C OMPRE HENSI VE METAB OLIC PANEL ) protein, total 6.1 g/dL 6.4-8. 3 low Not Available [facility] (Lab) [address] [facility], [place], [address], 08/05/2025 13:39:18 08/04/20 25 08/04/2025 CMP(C OMPRE HENSI VE METAB OLIC PANEL ) albumin 3.5 g/dL 3.5-5. 0 Not Available [facility] (Lab) [address] [facility], [place], [address], 08/05/2025 13:39:18 08/04/20 25 08/04/2025 CMP(C OMPRE HENSI VE METAB OLIC PANEL ) ALT 11 units /L 9-43 Not Available [facility] (Lab) [address] [facility], [place], [address], 08/05/2025 13:39:18 08/04/20 25 08/04/2025 CMP(C OMPRE HENSI VE METAB OLIC PANEL ) alkaline phosphatase 98 units /L 34-104 Not Available [facility] (Lab) [address] [facility], [place], [address], 08/05/2025 13:39:18 08/04/20 25 08/04/2025 CMP(C OMPRE HENSI VE METAB OLIC PANEL ) AST 15 units /L 13-39 Not Available [facility] (Lab) [address] [facility], [place], [address], 08/05/2025 13:39:18 08/04/20 25 08/04/2025 CMP(C OMPRE HENSI VE METAB OLIC PANEL ) bilirubin, total 0.3 mg/dL 0.2-1. 2 Not Available [facility] (Lab) [address] [facility], [place], [address], 08/05/2025 13:39:18 08/04/20 25 08/04/2025 BILE ACIDS , TOTAL bile acids, total 4 umol/ L 0-10 Test Perfo rmed by: Luke hernández rn [facility] [address] [address] Not Available [facility] (Lab) [address] [facility], [place], [address], 08/05/2025 13:39:19 03/02/20 25 03/02/2025 US, obste tric, nucha l trans lucen cy No observ ation record ed. [email or web address] [address], [place], [address], 03/02/2025 13:35:30 03/02/20 25 03/02/2025 US, obste tric, nucha l trans lucen cy No observ ation record ed. [email or web address] [address], [place], [address], 03/03/2025 14:08:39 03/08/20 25 03/08/2025 US, obste tric, 1st trime ster No observ ation record ed. [email or web address] [address], [place], [address], 03/08/2025 12:22:22 03/08/20 25 03/08/2025 US, obste tric, 1st trime ster No observ ation record ed. [email or web address] [address], [place], [address], 03/10/2025 15:03:13 04/01/20 25 03/24/2025 qamar r monit or No observ ation record ed. [address], [address], 04/08/2025 12:36:45 04/01/20 25 03/22/2025 qamar r monit or No observ ation record ed. [address] (Pulmonary) [address] [place] [address] [place] [address], [address], 04/06/2025 08:59:34 04/20/20 25 04/20/2025 US, obstanna tric, limit ed No observ ation record ed. [email or web address] [address], [place], [address], 04/20/2025 17:39:30 04/20/20 25 04/20/2025 US, obste tric, follo w-up No observ ation record ed. [email or web address] [address] [place] [address] [address], [place], [address], 04/23/2025 08:32:54 04/28/20 25 04/28/2025 US, obste tric, 2nd or 3rd trime ster No observ ation record ed. [email or web address] [address], [place], [address], 04/28/2025 17:48:42 04/28/20 25 04/28/2025 US, obste tric, 2nd or 3rd trime ster No observ ation record ed. [email or web address] [address], [place], [address], 05/04/2025 22:16:11 05/07/20 25 05/07/2025 non-s tress test No observ ation record ed. [address], [place], [address], 05/28/2025 13:33:54 05/21/20 25 05/21/2025 CT, head + brain , w/o contr ast No observ ation record ed. [place] [id number] [facility] [address], [place], [address], 05/24/2025 13:48:57 05/28/20 25 05/28/2025 US, obste tric, follo w-up No observ ation record ed. [email or web address] [address], [place], [address], 05/28/2025 17:32:34 05/28/20 25 05/28/2025 US, obste tric, follo w-up No observ ation record ed. [email or web address] [address], [place], [address], 06/01/2025 15:13:13 06/08/20 25 06/07/2025 US, obste tric, follo w-up No observ ation record ed. [email or web address] [facility] [address], [place], [address], 06/15/2025 10:53:46 07/07/20 25 07/07/2025 US, obste tric, follo w-up No observ ation record ed. [email or web address] [address], [place], [address], 07/07/2025 13:18:01 07/07/20 25 07/07/2025 US, obste tric, follo w-up No observ ation record ed. [email or web address] [address], [place], [address], 07/07/2025 11:29:37 08/04/20 25 08/04/2025 US, obste tric, follo w-up No observ ation record ed. [email or web address] [address], [place], [address], 08/04/2025 15:08:50 08/04/20 25 08/04/2025 US, obste tric, follo w-up No observ ation record ed. [address], [place], [address], 08/06/2025 10:41:50 08/11/20 25 08/11/2025 non-s tress test No observ ation record ed. [email or web address] [address], [place], [address], 08/11/2025 17:37:52 08/11/20 non-s tress test No observ ation record ed. [address], [place], [address], 08/11/2025 17:38:11 08/15/20 25 08/15/2025 non-s tress test No observ ation record ed. [place] [id number], [place], [address], 08/21/2025 10:18:57 08/15/2008/15/2025 US, obste tric, bioph ysica l profi le No observ ation record ed. [address], [place], [address], 08/17/2025 10:50:53 08/18/2008/18/2025 US, obste tric, bioph ysica l profi le + non-s tress test No observ ation record ed. [email or web address] [address], [place], [address], 08/18/2025 10:21:39 08/18/2008/18/2025 US, obste tric, bioph ysica l profi le + non-s tress test No observ ation record ed. [email or web address] [address], [place], [address], 08/18/2025 10:35:44 08/18/2008/18/2025 non-s tress test No observ ation record ed. [email or web address] [address], [place], [address], 08/18/2025 17:34:03 08/18/20 non-s tress test No observ ation record ed. [email or web address] [address], [place], [address], 08/18/2025 16:06:09 08/25/2008/25/2025 US, obste tric, bioph ysica l profi le + non-s tress test No observ ation record ed. [email or web address] [address], [place], [address], 08/25/2025 18:52:06 08/25/20 25 08/25/2025 US, obste tric, follo w-up No observ ation record ed. joelle [address]sha [address], [place], [address], 08/25/2025 15:47:28 08/25/20 25 08/25/2025 non-s tress test No observ ation record ed. [email or web address] [address], [place], [address], 08/25/2025 18:12:15 08/25/20 non-s tress test No observ ation record ed. [email or web address] [address], [place], [address], 08/25/2025 17:21:19 08/30/20 25 08/30/2025 non-s tress test No observ ation record ed. [address], [place], [address], 09/15/2025 15:26:49 09/01/20 25 09/01/2025 non-s tress test No observ ation record ed. [place] [id number] [facility] [address], [place], [address], 09/13/2025 11:32:22 09/01/20 25 09/01/2025 US, mistye tric No observ ation record ed. [place] [id number] [facility] [address], [place], [address], 09/02/2025 15:56:01 09/01/20 25 09/01/2025 non-s tress test No observ ation record ed. [email or web address] [id number] [facility] [address], [place], [address], 09/02/2025 14:32:38 09/16/20 09/16/2025 imagi ng/di agnos tic resul t No observ ation record ed. [facility] [address], [place], [address], 09/16/2025 18:07:05 Result Notes None recorded. Problems Name Problem SNOMED Code Status Onset Date Resolution Date Notes Provider Name and Address Organization Details Recorded Time Hypereme sis 199958208 Completed phenerga n now prn [facility] 2 16:43:51 Anxiety in pregnanc y [id number] Completed will continue to monitor [facility] 2 16:43:51 Past pregnanc y history of gestatio nal diabetes mellitus 561970809 Completed Early 1 hr GTT @ 20wks 11/03 APPT [facility] 2 16:43:51 Spinal muscular atrophy 5811535 Completed Carrier - Not in contact with FOB. [facility] 2 16:43:51 Anxiety 66907114 Completed prozac [facility] 4 11:00:46 Nausea [id number] Completed d/c zofran pump 11/08 per pt request [facility] 4 11:00:46 Postpart um hemorrha ge [id number] Completed hx 2017 with d&c [facility] 4 11:00:46 Normal pregnanc y in multigra jessy [id number] Completed 201907/05/2021 Encounte r for supervis ion of other normal pregnanc y, 3rd trimeste r;Record ed Elsewher e: No Locat ion: [facility] S ource: EHR Features Editor yvrose: N Natalyati ce ID: [id number] Gigi lable Time: 10:45:00 AM [facility] 10:15:27 Gestatio n period, 37 weeks [id number] Completed 201907/05/2021 37 weeks gestatio n of pregnanc y;Record ed Elsewher e: No [facility] E[facility] Features Editor yvrose: N Natalyati ce ID: [id number] Gigi lable Time: 09:00:00 AM [facility] 10:15:[address] Concept Completed 201907/05/2021 Matern care for abnlt fetl hrt rate or rhym, 3rd tri, unsp;Rec orded Elsewher e: No [facility]: EHR Features Editor yvrose: N Natalyati ce ID: 0001 Gigi lable Time: 08:45:00 AM Karina ramos [facility] 10:15:29 Gestatio nal diabetes mellitus 70510418 Completed 201907/05/2021 Gestatio nal diabetes mellitus in pregnanc y, diet controll ed;Recor ded Elsewher e: No Locat ion: [facility] S ource: EHR Features Editor yvrose: N Natalyati ce ID: 0001 Gigi lable Time: 11:45:00 AM Karina ramos [facility] 10:15:25 Gestatio n period, 38 weeks 03021300 Completed 201907/05/2021 38 weeks gestatio n of pregnanc y;Record ed Elsewher e: No Locat ion: [facility] S ource: EHR Features Editor yvrose: N Practi ce ID: 0001 Gigi lable Time: 11:30:00 AM Karina ramos [facility] 10:15:13 Amenorrh ea 48512983 Completed 202007/10/2021 Tammi Jones null, [facility] 13:08:35 Pregnanc y 99382062 Completed 202003/29/2022 Emma Dykes null, [facility] 12:28:48 Pregnanc y 60455503 Completed 202304/22/2024 Emma Dykes null, [facility] 12:28:48 Headache 58121119 Active 2023 Karina Burroughs null, [facility] 16:19:28 Pregnanc y 52754114 Completed 202309/14/2025 Emma Dykes null, [facility] 12:28:48 Uncompli cated moderate persiste nt asthma 405383110 Completed 2024 albutero l prn Shawn Bradley MD [address], [place], [address], [facility] 13:08:36 Anxiety 62072754 Completed 2024 sertrali ne started 03/02/25 changed to prozac 10 on Shawn Bradley MD [address], [place], [address], [facility] 17:05:48 Nausea and vomiting 41157198 Completed 2024 Shawn Bradley MD [address], [place], [address], [facility] 13:20:27 Placenta circumva llata 5822697 Completed 2024 32wk growth Ryann Castro null, [facility] 5 09:44:35 Frequent headache 896637681 Completed 2024 transpor t to [facility] 05/21, discharg e 05/23 MF referral faxed [...] than 2-3 times a week. Ryann ramos [facility] 5 10:55:26 Abnormal placenta affectin g manageme nt of mother 22234420 Completed 2024 MCI serial growth us Ryann ramos [facility] 5 10:46:25 Iron deficien cy anemia 14376451 Completed 2024 [facility] tx venofer 200mg x1 HGB 10.6 Ryann ramos [facility] 5 15:21:25 Gestatio nal diabetes mellitus 88082975 Completed 2024 checking bs QID - ruled in GDM Referral faxed to [facility] 07/07 Ryann ramos [facility] 5 14:36:52 Notes:[facility], and home health already caring for pt. Vladimir RDZ at [phone] Problem Notes None recorded. Procedures Surgical History Date Name Laterality Status Provider Name and Address Organization Details Recorded Time 025 SALPINGECTOMY, LAPAROSCOPIC (SURG) completed Not Available [facility] 09/06/2025 11:19:17 025 Date of Last Pap Smear completed Karina Burroughs [facility] 01/28/2025 11:19:42 024 Nexplanon Removal completed Shawn Bradley MD [address], [place], [address], [facility] 08/05/2024 15:09:58 024 Control Implant Insertion completed Anju Mcnamara CNM [address], [place], [address], [facility] 05/08/2024 17:59:34 024 cholecystectomy completed Karina Burroughs [facility] 03/31/2025 09:18:57 018 Dilation and Curettage completed Karina Burroughs [facility] 07/05/2021 10:17:50 Imaging Results None recorded. Procedure Notes None recorded. Medical Equipment None Reported. Allergies Allergen ID Allergen Name Allergen Category Reaction Reaction Severity Criticality Documentation Date Start Date Code Code System Note Provider Name and Address Organization Details Recorded Time 94751 terbutali ne medicatio n anaphylax is Not available Not available 01/27/20252021 10503 RxNorm Karina ramos, [facility] 16:19:27 51389 amoxicill in medicatio n Not available Not available Not available 09/10/2025 723 RxNorm Not Available gene - External Data Service - prod 16:39:37 50732 terbinafi ne medicatio n anaphylax is Not available [facility] 09/10/20252024 02101 RxNorm Not Available [employer] External Data Service - prod 16:40:54 Medications [...] Elsewher e: Yes Loca tion: [facility] odify By: prabhjot Lee r [...] n (supplie d by office) insert lot [id number] Exp 01/2026 Not Available Not Available Not Available 28 mg iron-800 mcg tablet 07/05 completed Prescrib ed Elsewher e: Yes Loca tion: [facility] odify By: prabhjot Lee r DateTime : 01/14/20 10:45:00 AM Not Available Not Available Not Available lidocaine 5 % topical ointment APPLY OINTMENT EXTERNAL LY TO RIBS THREE TIMES DAILY NEEDED 01/14 completed Not Available Not Available Not Available [employer] YARD-PNV-DH A 28 mg iron-1 mg-200 mg capsule [...] Details Last Updated DateTime 08/18/2025 162.56 cm 77165.9960 8 g 116/77 mm[Hg] Melyssa Santo [facility] 08/18/2025 10:57:44 Date Recorded Body height Body weight Systolic And Diastolic Provider Name and Address Organization Details Last Updated DateTime 08/18/2025 162.56 cm 03161.9960 8 g 116/77 mm[Hg] Emma Dykes [facility] 08/18/2025 16:03:36 Social History Question Answer Notes LastModified by Organizat ion Details LastModified Time Tobacco Smoking Status Former Smoker Karina ramos, [facility] 07/05/2021 09:06:21 If You Are , What Was Your Level Of Alcohol Consumption Prior To ? Occasional [email or web address] Information not available 03/31/2025 Are You Blind Or Do You Have Difficulty Seeing? No Information not available 07/05/2021 What Is Your Level Of Caffeine Consumption? Heavy [email or web address] Information not available 07/05/2021 In The 14 Days Before Symptom Onset, Have You Had Close Contact With A Laboratory-confir med COVID-19 While That Case Was Ill? No [email or web address] Information not available 07/05/2021 In The 14 Days Before Symptom Onset, Have You Had Close Contact With A Person Who Is Under Investigation For COVID-19 While That Person Was Ill? No [email or web address] Information not available 07/05/2021 Have You Been To An Area Known To Be High Risk For COVID-19? No [email or web address] Information not available 07/05/2021 Are You Deaf Or Do You Have Serious Difficulty Hearing? No [email or web address] Information not available 07/05/2021 What Type Of Diet Are You Following? REGULAR [email or web address] Information not available 07/05/2021 Which Illicit Or Recreational Drugs Have You Used? Marijuana [email or web address] Information not available 07/05/2021 Have You Ever Been Counseled For Unhealthy Alcohol Use? No [email or web address] Information not available 07/05/2021 Do You Use Your Seat Belt Or Car Seat Routinely? Yes [email or web address] Information not available 07/05/2021 Do You Have Smoke And Carbon Monoxide Detectors In Your Home? Yes [email or web address] Information not available 07/05/2021 Do You Use Sunscreen Routinely? Yes [email or web address] Information not available 07/05/2021 Has Tobacco Cessation Counseling Been Provided? No [email or web address] Information not available 07/05/2021 Have You Used IV Drugs? No [email or web address] Information not available 07/05/2021 Do You Have Difficulty Walking Or Climbing Stairs? No Information not available 12/06/2021 Sex: Unknown Functional Status Question Answer Note LastModified by Organizat ion Details LastModified Time Do you use any illicit or recreational drugs? Yes [email or web address] Information not available 07/05/2021 Do you or have you ever used any other forms of tobacco or nicotine? Yes [email or web address] Information not available 07/05/2021 What is your level of alcohol consumption? None [email or web address] Information not available 03/31/2025 Do you or have you ever used smokeless tobacco? Never used smokeless tobacco [email or web address] Information not available 07/05/2021 Are you able to walk independently without assistance or assistive devices? YESWOREST [email or web address] Information not available 07/05/2021 Are you able to care for yourself independently? Yes Information not available 12/06/2021 Do you have difficulty dressing, bathing, grooming, or toileting? No Information not available 12/06/2021 Do you or have you ever used e-cigarettes or vape? Current user of electronic cigarettes [email or web address] Information not available 07/05/2021 What is your exercise level? Occasional [email or web address] Information not available 07/05/2021 Mental Status Question Answer Note LastModified by Organization D etails LastModified Time Do you feel stressed (tense, restless, nervous, or anxious, or unable to sleep at night)? [id number] Information not available 07/05/2021 Family History Relationship Description Onset Age of this Age Resolved Age Notes LastModified by Organization Details LastModified Time Father No current problems or disability [email or web address] Not available 05/2021 09:06:31 Mother No current [...] ICD10 Code Diagnosis IMO Codes Diagnosis Note [id number] [facility] [address] [address] 07/21/2025 09:28:54 07/21/2025 12:36:06 Pain in pelvis 85038446 R10.2 849026 Gestation period, 32 weeks 0802133 Z3A.32 2605962 [id number] Shawn Bradley MD [address] [place] [address] 08/04/2025 14:02:59 08/04/2025 15:06:33 Gestational diabetes mellitus 94560854 O24.410 O43.103 O43.113 Z3A.34 84555807 [id number] Anju Mcnamara [place] [address] [place] [address] 08/04/2025 14:21:57 08/04/2025 15:26:03 Gestation period, 34 weeks 31778978 Z3A.34 4198684 Pruritic d isorder of skin 0081005201 L29.9 25535 plan labs today, ursadiol BID [id number] Anju Mcnamara [facility] [address] [place] [address] 08/11/2025 14:51:38 08/11/2025 17:16:44 Gestational diabetes mellitus 95140155 O24.414 67467429 [id number] [facility] [address] [place] [address] 08/11/2025 16:25:59 08/11/2025 17:46:32 Gestational diabetes mellitus 76933137 O24.414 [id number] [id number] Shawn Bradley MD [address] [place] [address] 08/18/2025 09:40:51 08/18/2025 10:15:47 Gestational diabetes mellitus 75305695 O24.414 Z3A.36 89049450 [id number] Anju Mcnamara CNM [address] [address] 08/18/2025 09:41:06 08/18/2025 11:24:04 Gestation period, 36 weeks 92588104 Z3A.36 1752398 cont pnv [id number] [facility] [address],[place] [address] 08/18/2025 09:41:16 08/18/2025 16:17:31 Gestational diabetes mellitus class A2 52013647 O24.414 53797148 Health Concerns Section Related Observation LastModified by Organization Detai ls LastModified Time None Recorded Concern Status LastModified by Organization Details LastModified Time None Recorded Payers Encounter Date Sequence Insurance Name Policy Number Policy Roberts Covered Member ID Roberts Member ID Guarantor Name 08/18/2025 1 [facility] (MEDICAID HMO) [id number] Yuni Mejia [id number] Yuni Mejia Notes Date Note Type Note Provider Name and Address Organization Details Recorded Time 08/18/2025 text/html Generic HPI TemplateReported by Patient Anju Mcnamara CNM [address], [place], [address], [facility] 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 Status 03/02/20 25 1 B Positive 164 CLOSED Fetus Data First Name Last Name Admitted to NICU Weight (g) Sex Living Outcome Pediatric Complications Fetus ID Race Codes Race Delivery Type Gladis false 4025.62 9 F true Full Term 48774 Vaginal Delivery Problems Problem Notes SDH form completed 5GI consult Tachycardia Holter monitor 72 order- pt sent back on 03-27-25 Cardiology referral faxed per Dr Martínez office calling pt 04/21 to schedule consult scheduled 05/11 11:15AM Problem Name Start Date End Date Resolution Snomed Code Not e Uncomplicated moderate persistent asthma 03/02/2025 275747997 albuterol prn Abnormal placenta affecting management of mother 05/04/2025 98627870 MCI serial grow th us Iron deficiency anemia 05/25/2025 [id number] [facility] MFM tx [place] 200mg x1 HGB 10.6 Nausea and vomiting 03/02/2025 98786206 Anxiety 03/02/2025 59803917 sertralin e started 03/02/25 changed to prozac 10 on Gestational diabetes mellitus 07/08/2025 50339972 checking bs QID - ruled in GDM Referral faxed to [facility] 07/07 Frequent headache 05/03/2025 344637439 [place] [facility] 05/21, discharge 05/23 MF referral faxed 05/24 [facility] Neurology consult pending per KAJAL Pittman [facility]- Neuro [facility] unable to see pt due to insurance 05/[facility] 07/05/25 Level US & Consult (see MF consult zayas recommendations ) regimen prn Imitrex 50mg for acute migraine, vitamin B2 (Riboflavin) 400mg, Coenzyme q10 300mg and magnesium oxide 200 to 600mg daily. minimize use of Excedrin or Tylenol to no more than 2-3 times a week. 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/2025 7366704 32wk growth us Jun Calculation Initial Jun [...] Weight in lbs Pre/Post Dialysis Refused Weight 158.292460568010 BP Diastolic BP Location Tested BP Systolic [...] Weight in lbs Pre/Post Dialysis Refused Weight 158.979779632597 BP Diastolic BP Location Tested BP Systolic [...] Weight in lbs Pre/Post Dialysis Refused Weight 162.388639146872 BP Diastolic BP Location Tested BP Systolic BP Type 78 123 Fetus Heart Rate Present A 148 Fetus Movement A Yes Comments Patient is having having ronny n, cramping and vaginal discharge. went to ed exam done cultures and rx sent, ?FM, await registered nurse cardiac telemetry results rfilled zofran, precautions and education f/u [...] Type Weight in lbs Pre/Post Dialysis Refused 168.251595884487 BP Diastolic BP Location Tested BP Systolic [...] Type Weight in lbs Pre/Post Dialysis Refused 169.464622843857 BP Diastolic BP Location Tested BP Systolic [...] Weight in lbs Pre/Post Dialysis Refused Weight 175.867603886868 BP Diastolic BP Location Tested BP Systolic [...] Weight in lbs Pre/Post Dialysis Refused Weight 182.080548226137 BP Diastolic BP Location Tested BP Systolic [...] Weight in lbs Pre/Post Dialysis Refused Weight 181.867335436443 BP Diastolic BP Location Tested BP Systolic BP Type 73 L arm 131 sitting Fetus Heart Rate Present Fetus Movement A Yes Comments viral URI testied neg at urg ent care, nausea resolved, efw 68%, +FM plan education and precautions f/u 2 weeks diagnosed GDM, 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, gave list reviewed protein vs carb Flowsheet Date 07/21/2025 Gibson Score Blood Edema Fundus Height Fundus Units Glucose Ketones Leukocytes Nitrite Labor Signs Protein Cervic Dilation Cervic Effacement Cervic Station Type Weight in lbs Pre/Post Dialysis Refused Weight 181.076401209318 BP Diastolic BP Location Tested BP Systolic BP Type 78 L arm 127 sitting Fetus Heart Rate Present A 150 Fetus Movement A Yes Comments rpt urine culture +FM review ed blood sugars, meets with franchise sales manager today, precautions and education f/u 2 weeks [...] Weight in lbs Pre/Post Dialysis Refused Weight 181.301435511240 BP Diastolic BP Location Tested BP Systolic [...] Weight in lbs Pre/Post Dialysis Refused Weight 183.529851599098 BP Diastolic BP Location Tested BP Systolic [...] Type Weight in lbs Pre/Post Dialysis Refused 184.752647814266 BP Diastolic BP Location Tested BP Systolic [...] Type Weight in lbs Pre/Post Dialysis Refused 184.798798184163 BP Diastolic BP Location Tested BP Systolic [...] Type Weight in lbs Pre/Post Dialysis Refused 184.183460410975 BP Diastolic BP Location Tested BP Systolic [...] Weight in lbs Pre/Post Dialysis Refused Weight 184.635190941871 BP Diastolic BP Location Tested BP Systolic [...] Weight in lbs Pre/Post Dialysis Refused Weight 164.270097170110 BP Diastolic BP Location Tested BP Systolic [...]
--- OUTSIDE RECORDS SUMMARY | 2025-09-16 17:51 | XMS_ITS | Continuity of Care Document ---
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 Role Phone SEAN CALROS Primary Care Provider [phone] Assessment Encounter Date Assessment Date Assessment LastModified [...] Not Available [facility] [address], [place], [address], 03/06/2025 03:58:26 03/06/20 25 03/06/2025 [UNIT Y] ANEUP LOIDY NIPT sex chromosome aneuploidy NOT DETECT ED normal Not Available [facility] [address], [place], [address], 03/06/2025 03:58:26 03/06/20 25 03/06/2025 [UNIT Y] ANEUP LOIDY NIPT monosomy X LOW RISK <1 in 10,000 normal Not Available [facility] [address], [place], [address], 03/06/2025 03:58:26 03/06/20 25 03/06/2025 [UNIT Y] ANEUP LOIDY NIPT trisomy 13 LOW RISK <1 in 10,000 normal Not Available [facility] [address], [place], [address], 03/06/2025 03:58:26 03/06/20 25 03/06/2025 [UNIT Y] ANEUP LOIDY NIPT trisomy 18 LOW RISK <1 in 10,000 normal Not Available [facility] [address], [place], [address], 03/06/2025 03:58:26 03/06/20 25 03/06/2025 [UNIT Y] ANEUP LOIDY NIPT trisomy 21 LOW RISK <1 in 10,000 normal Not Available [facility] [address], [place], [address], 03/06/2025 03:58:26 03/06/20 25 03/06/2025 [UNIT Y] ANEUP LOIDY NIPT sex FEMALE normal Not Available [facility] [address], [place], [address], 03/06/2025 03:58:26 03/06/20 25 03/06/2025 [UNIT Y] ANEUP LOIDY NIPT gestation SINGLE TON normal Not Available [facility] [address], [place], [address], 03/06/2025 03:58:26 03/06/20 25 03/06/2025 [UNIT Y] ANEUP LOIDY NIPT for detailed report, see pdf See PDF normal Not Available [facility] [address], [place], [address], 03/06/2025 03:58:26 03/02/20 25 03/02/2025 CULTU RE: URINE result report SEE RESULT S BELOW Test: Cultu re: Urine Speci men Sourc e: Urine - Clean Catch Speci men Type: Urine Speci men Date: 025 1455 Resul t Date: 2138 Resul t Statu s: Final resul t Abnor mal: No Resul ting Lab: [facility] [address] [facility] [address] Tel: CULTU RE ----- ----- ----- --- No growt h in 1 day (dete ction level of 10,00 0 colon ies / ml.) Not Available [facility] (Lab) [address] [facility], [place], [address], 03/03/2025 22:42:27 03/12/2003/12/2025 CULTU RE: URINE result report SEE RESULT S BELOW Test: Cultu re: Urine Speci men Sourc e: Urine - Clean Catch Speci men Type: Urine Speci men Date: 2024 1600 Resul t Date: 2024 0610 Resul t Statu s: Final resul t Abnor mal: No Resul ting Lab: [facility] [address] [facility] [address] Tel: CULTU RE ----- ----- ----- --- No growt h in 1 day (dete ction level of 10,00 0 colon ies / ml.) Not Available [facility] (Lab) [address] [facility], [place], [address], 03/14/2025 07:15:03 03/12/2003/12/2025 urina lysis , dipst ick Leukocytes ++ Not Available [address], [place], [address], 03/12/2025 16:45:06 03/12/2003/12/2025 urina lysis , dipst ick Protein + Not Available [facility] [address], [place], [address], 03/12/2025 16:45:06 03/12/20 25 03/12/2025 urina lysis , dipst ick pH 5 Not Available [facility] [address], [place], [address], 03/12/2025 16:45:06 03/12/20 25 03/12/2025 urina lysis , dipst ick Blood trace Not Available [facility] [address], [place], [address], 03/12/2025 16:45:06 03/12/20 25 03/12/2025 urina lysis , dipst ick Specific [place] 1.015 Not Available [facility] [address], [place], [address], 03/12/2025 16:45:06 03/12/20 25 03/12/2025 urina lysis , dipst ick Ketone +++ Not Available [facility] [address], [place], [address], 03/12/2025 16:45:06 03/31/20 25 03/31/2025 TSH, REFLE X FREE T4 TSH 0.42 uIU/m L 0.30-5 .33 Not Available [facility] (Lab) [address] [facility], [place], [address], 04/01/2025 03:05:12 03/31/20 25 03/31/2025 CULTU RE: URINE result report SEE RESULT S BELOW Test: Cultu re: Urine Speci men Sourc e: Urine Voide d Speci men Type: Urine Speci men Date: 1710 Resul t Date: 2256 Resul t Statu s: Final resul t Abnor mal: No Resul ting Lab: [facility] [address] [facility] [address] Tel: CULTU RE ----- ----- ----- --- Cultu re resul t (>=3 organ isms prese nt) indic ates possi ble conta minat ion. Repea t cultu re if sympt oms indic ate. Not Available [facility] (Lab) [address], [place], [address], 04/01/2025 23:59:19 03/31/20 25 03/31/2025 urina lysis , dipst ick Leukocytes +1 Not Available [facility] [address], [place], [address], 03/31/2025 09:23:13 03/31/20 25 03/31/2025 urina lysis , dipst ick Nitrite normal Not Available [facility] [address], [place], [address], 03/31/2025 09:23:13 03/31/20 25 03/31/2025 urina lysis , dipst ick Urobilinogen normal Not Available [facility] david [address], [place], [address], 03/31/2025 09:23:13 03/31/20 25 03/31/2025 urina lysis , dipst ick Protein trace Not Available [facility] [address], [place], [address], 03/31/2025 09:23:13 03/31/20 25 03/31/2025 urina lysis , dipst ick pH 5 Not Available [facility] [address], [place], [address], 03/31/2025 09:23:13 03/31/20 25 03/31/2025 urina lysis , dipst ick Specific [place] 1.020 Not Available [facility] [address], [place], [address], 03/31/2025 09:23:13 03/31/20 25 03/31/2025 urina lysis , dipst ick Ketone normal Not Available [facility] [address], [place], [address], 03/31/2025 09:23:13 03/31/20 25 03/31/2025 urina lysis , dipst ick Bilirubin normal Not Available [facility] anna [address], [place], [address], 03/31/2025 09:23:13 03/31/20 25 03/31/2025 urina lysis , dipst ick Glucose normal Not Available [facility] [address], [place], [address], 03/31/2025 09:23:13 03/31/20 25 03/31/2025 urina lysis , dipst ick Appearance normal Not Available [facility] [address], [place], [address], 03/31/2025 09:23:13 03/31/20 25 03/31/2025 urina lysis , dipst ick Color normal Not Available [facility] [address], [place], [address], 03/31/2025 09:23:13 04/01/20 25 04/01/2025 [facility], DENIS bacterial vaginosis (bv), tma Negati ve negati ve Not Available [facility] (Lab) [address] [place] [place], [address], 04/02/2025 14:08:45 04/01/20 25 04/01/2025 [facility], DENIS mekhi species, tma Negati ve negati ve Not Available [facility] (Lab) [address] [place], [address], 04/02/2025 14:08:45 04/01/20 25 04/01/2025 WOMEN 'S HEALT H SWAB PLUS, DENIS mekhi glabrata, tma Negati ve negati ve Not Available [facility] (Lab) [address] [place], [address], 04/02/2025 14:08:45 04/01/20 25 04/01/2025 WOMEN 'S HEALT H SWAB PLUS, DENIS trichomonas vaginalis, tma Negati ve negati ve Not Available [facility] (Lab) [address] [place], [address], 04/02/2025 14:08:45 04/01/20 25 04/01/2025 [facility], DENIS chlamydia trachomatis, PCR Negati ve negati ve Not Available [facility] (Lab) [address] [place], [address], 04/02/2025 14:08:45 04/01/20 25 04/01/2025 [facility], DENIS neisseria [...] ded in this panel . Not Available [facility] (Lab) [address] , [place], [address], 04/02/2025 14:08:45 04/22/2004/22/2025 CULTU RE: URINE result report SEE RESULT S BELOW Test: Cultu re: Urine Speci men Sourc e: Urine Voide d Speci men Type: Urine Speci men Date: 2024 1314 Resul t Date: 2024 0322 Resul t Statu s: Final resul t Abnor mal: No Resul ting Lab: [facility] [address] [facility] [address] Tel: CULTU RE ----- ----- ----- --- No growt h in 1 day (dete ction level of 10,00 0 colon ies / ml.) Not Available [facility] (Lab) [address], [place], [address], 04/24/2025 04:28:01 04/22/20 25 04/22/2025 urina lysis , dipst ick Leukocytes + Not Available [address], [place], [address], 04/22/2025 10:01:51 04/22/20 25 04/22/2025 urina lysis , dipst ick Protein + Not Available [facility] [address], [place], [address], 04/22/2025 10:01:51 04/22/20 25 04/22/2025 urina lysis , dipst ick pH 8 Not Available [facility] [address], [place], [address], 04/22/2025 10:01:51 04/22/20 25 04/22/2025 urina lysis , dipst ick Blood + Not Available [facility] [address], [place], [address], 04/22/2025 10:01:51 04/22/20 25 04/22/2025 urina lysis , dipst ick Specific [place] 1.010 Not Available [facility] [address], [place], [address], 04/22/2025 10:01:51 04/22/20 25 04/22/2025 urina lysis , dipst ick Ketone + Not Available [facility] [address], [place], [address], 04/22/2025 10:01:51 06/23/20 25 06/23/2025 HEMAT OCRIT (HCT) HCT 35.6 % (based on docume nted legal sex) 34.0-4 5.0 Not Available [facility] (Lab) [address] [facility], [place], [address], 06/24/2025 11:45:32 06/23/20 25 06/23/2025 HEMOG LOBIN (HGB) HGB 11.1 g/dL (based on docume nted legal sex) 11.6-1 5.4 low Not Available [facility] (Lab) [address] [facility], [place], [address], 06/24/2025 11:45:32 06/23/20 25 06/23/2025 GTT - GESTA ROLAND L SCREE N, ACOG OB glucose, 1 hour screen 180 mg/dL 70-135 high Not Available [facility] (Lab) [address] [facility], [place], [address], 06/24/2025 11:45:33 06/23/20 25 06/23/2025 HIV 1/2 ANTIG EN/AN TIBOD Y, REFLE X CONFI RMATI ON HIV antigen/anti body Nonrea ctive nonrea ctive HIV-1 antig en and HIV-1 /HIV- 2 antib odies were not detec greg. No labor atory evide nce of HIV infec tion. Not Available [facility] (Lab) [address], [place], [address], 06/24/2025 11:45:33 06/23/20 25 06/23/2025 RPR SCREE N, REFLE X TITER /CONF IRMAT ION RPR qualitative Nonrea ctive nonrea ctive Not Available [facility] (Lab) [address] [facility], [place], [address], 06/24/2025 11:45:34 07/21/20 25 07/21/2025 CULTU RE: URINE result report SEE RESULT S BELOW Test: Cultu re: Urine Speci men Sourc e: Urine - Clean Catch Speci men Type: Urine Speci men Date: 2024 1024 Resul t Date: 2024 0252 Resul t Statu s: Final resul t Abnor mal: No Resul ting Lab: [facility] [address] [facility] [address] Tel: CULTU RE ----- ----- ----- --- No growt h in 1 day (dete ction level of 10,00 0 colon ies / ml.) Not Available [facility] (Lab) [address], [place], [address], 07/23/2025 03:57:01 07/21/2007/21/2025 urina lysis , dipst ick Leukocytes ++ Not Available [address], [place], [address], 07/21/2025 11:03:04 07/21/20 25 07/21/2025 urina lysis , dipst ick Nitrite neg Not Available [address], [place], [address], 07/21/2025 11:03:04 07/21/20 25 07/21/2025 urina lysis , dipst ick Urobilinogen neg Not Available [facility] [address], [place], [address], 07/21/2025 11:03:04 07/21/20 25 07/21/2025 urina lysis , dipst ick Protein + Not Available [facility] [address], [place], [address], 07/21/2025 11:03:04 07/21/20 25 07/21/2025 urina lysis , dipst ick pH 5 Not Available [facility] [address], [place], [address], 07/21/2025 11:03:04 07/21/20 25 07/21/2025 urina lysis , dipst ick Specific [place] 1.030 Not Available [facility] [address], [place], [address], 07/21/2025 11:03:04 07/21/20 25 07/21/2025 urina lysis , dipst ick Ketone +++ Not Available [facility] [address], [place], [address], 07/21/2025 11:03:04 07/21/20 25 07/21/2025 urina lysis , dipst ick Bilirubin neg Not Available [facility] [address], [place], [address], 07/21/2025 11:03:04 07/21/20 25 07/21/2025 urina lysis , dipst ick Glucose neg Not Available [facility] [address], [place], [address], 07/21/2025 11:03:04 07/21/20 25 07/21/2025 urina lysis , dipst ick Appearance cloudy Not Available [address], [place], [address], 07/21/2025 11:03:04 07/21/20 25 07/21/2025 urina lysis , dipst ick Color dark Not Available [facility] [address], [place], [address], 07/21/2025 11:03:04 08/04/20 25 08/04/2025 CMP(C OMPRE HENSI VE METAB OLIC PANEL ) sodium 138 mmol/ L 133-14 6 Not Available [facility] (Lab) [address], [place], [address], 08/05/2025 13:39:18 08/04/20 25 08/04/2025 CMP(C OMPRE HENSI VE METAB OLIC PANEL ) potassium 4.0 mmol/ L 3.5-5. 1 Not Available [facility] (Lab) [address], [place], [address], 08/05/2025 13:39:18 08/04/20 25 08/04/2025 CMP(C OMPRE HENSI VE METAB OLIC PANEL ) chloride 105 mmol/ L 98-107 Not Available [facility] (Lab) [address] [facility], [place], [address], 08/05/2025 13:39:18 08/04/20 25 08/04/2025 CMP(C OMPRE HENSI VE METAB OLIC PANEL ) carbon dioxide 25 mmol/ L 21-31 Not Available [facility] (Lab) [address] [facility], [place], [address], 08/05/2025 13:39:18 08/04/20 25 08/04/2025 CMP(C OMPRE HENSI VE METAB OLIC PANEL ) anion gap 8 mmol/ L 4-13 Not Available [facility] (Lab) [address] [facility], [place], [address], 08/05/2025 13:39:18 08/04/20 25 08/04/2025 CMP(C OMPRE HENSI VE METAB OLIC PANEL ) blood urea nitrogen 10 mg/dL 7-25 Not Available [facility] (Lab) [address], [place], [address], 08/05/2025 13:39:18 08/04/20 25 08/04/2025 CMP(C OMPRE HENSI VE METAB OLIC PANEL ) creatinine 0.41 mg/dL 0.60-1 .30 low Not Available [facility] (Lab) [address], [place], [address], 08/05/2025 13:39:18 08/04/20 25 08/04/2025 CMP(C OMPRE HENSI VE METAB OLIC PANEL ) egfrcr (CKD-epi 2020) >90 mL/mi n/1.7 3_m2 >=60 Not Available [facility] (Lab) [address], [place], [address], 08/05/2025 13:39:18 08/04/20 25 08/04/2025 CMP(C OMPRE HENSI VE METAB OLIC PANEL ) calcium 8.9 mg/dL 8.3-10 .5 Not Available [facility] (Lab) [address], [place], [address], 08/05/2025 13:39:18 08/04/20 25 08/04/2025 CMP(C OMPRE HENSI VE METAB OLIC PANEL ) glucose 116 mg/dL 70-100 high Not Available [facility] (Lab) [address], [place], [address], 08/05/2025 13:39:18 08/04/20 25 08/04/2025 CMP(C OMPRE HENSI VE METAB OLIC PANEL ) protein, total 6.1 g/dL 6.4-8. 3 low Not Available [facility] (Lab) [address], [place], [address], 08/05/2025 13:39:18 08/04/20 25 08/04/2025 CMP(C OMPRE HENSI VE METAB OLIC PANEL ) albumin 3.5 g/dL 3.5-5. 0 Not Available [facility] (Lab) [address], [place], [address], 08/05/2025 13:39:18 08/04/20 25 08/04/2025 CMP(C OMPRE HENSI VE METAB OLIC PANEL ) ALT 11 units /L 9-43 Not Available [facility] (Lab) [address], [place], [address], 08/05/2025 13:39:18 08/04/20 25 08/04/2025 CMP(C OMPRE HENSI VE METAB OLIC PANEL ) alkaline phosphatase 98 units /L 34-104 Not Available [facility] (Lab) [address], [place], [address], 08/05/2025 13:39:18 08/04/20 25 08/04/2025 CMP(C OMPRE HENSI VE METAB OLIC PANEL ) AST 15 units /L 13-39 Not Available [facility] (Lab) [address], [place], [address], 08/05/2025 13:39:18 08/04/20 25 08/04/2025 CMP(C OMPRE HENSI VE METAB OLIC PANEL ) bilirubin, total 0.3 mg/dL 0.2-1. 2 Not Available [facility] (Lab) [address] [facility], [place], [address], 08/05/2025 13:39:18 08/04/20 25 08/04/2025 BILE ACIDS , TOTAL bile acids, total 4 umol/ L 0-10 Test Perfo rmed by: Luke hern[facility] [address] [address] Not Available [facility] (Lab) [address], [place], [address], 08/05/2025 13:39:19 03/02/20 25 03/02/2025 US, obste tric, nucha l trans lucen cy No observ ation record ed. [email or web address] [facility] [address], [place], [address], 03/02/2025 13:35:30 03/02/20 25 03/02/2025 US, obste tric, nucha l trans lucen cy No observ ation record ed. [email or web address] [facility] [address], [place], [address], 03/03/2025 14:08:39 03/08/20 25 03/08/2025 US, obste tric, 1st trime ster No observ ation record ed. [email or web address] [facility] [address], [place], [address], 03/08/2025 12:22:22 03/08/20 25 03/08/2025 US, obste tric, 1st trime ster No observ ation record ed. [email or web address] [address], [place], [address], 03/10/2025 15:03:13 04/01/20 25 03/24/2025 qamar r monit or No observ ation record ed. [address], [address], 04/08/2025 12:36:45 04/01/20 25 03/22/2025 qamar r monit or No observ ation record ed. [address] (Pulmonary) [address] [place] [address] [place] [address], [address], 04/06/2025 08:59:34 04/20/20 25 04/20/2025 US, obstanna tric, limit ed No observ ation record ed. [email or web address] [facility] [address], [place], [address], 04/20/2025 17:39:30 04/20/20 25 04/20/2025 US, obste tric, follo w-up No observ ation record ed. [email or web address] [address] [address] [place] [address] [address], [place], [address], 04/23/2025 08:32:54 04/28/20 25 04/28/2025 US, obste tric, 2nd or 3rd trime ster No observ ation record ed. [email or web address] [facility] [address], [place], [address], 04/28/2025 17:48:42 04/28/20 25 04/28/2025 US, obste tric, 2nd or 3rd trime ster No observ ation record ed. [email or web address] [address] [address], [place], [address], 05/04/2025 22:16:11 05/07/20 25 05/07/2025 non-s tress test No observ ation record ed. [address], [place], [address], 05/28/2025 13:33:54 05/21/20 25 05/21/2025 CT, head + brain , w/o contr ast No observ ation record ed. [place] [id number] [facility] [address], [place], [address], 05/24/2025 13:48:57 05/28/20 25 05/28/2025 US, obste tric, follo w-up No observ ation record ed. [email or web address] [facility] [address], [place], [address], 05/28/2025 17:32:34 05/28/20 25 05/28/2025 US, obste tric, follo w-up No observ ation record ed. [email or web address] [address], [place], [address], 06/01/2025 15:13:13 06/08/20 25 06/07/2025 US, obste tric, follo w-up No observ ation record ed. [email or web address] [facility] [address], [place], [address], 06/15/2025 10:53:46 07/07/20 25 07/07/2025 US, obste tric, follo w-up No observ ation record ed. [email or web address] [facility] [address], [place], [address], 07/07/2025 13:18:01 07/07/20 25 07/07/2025 US, obste tric, follo w-up No observ ation record ed. [email or web address] [address], [place], [address], 07/07/2025 11:29:37 08/04/20 25 08/04/2025 US, obste tric, follo w-up No observ ation record ed. [email or web address] [facility] [address], [place], [address], 08/04/2025 15:08:50 08/04/20 25 08/04/2025 US, obste tric, follo w-up No observ ation record ed. [email or web address] [address] [address], [place], [address], 08/06/2025 10:41:50 08/11/20 25 08/11/2025 non-s tress test No observ ation record ed. [email or web address] [facility] [address], [place], [address], 08/11/2025 17:37:52 08/11/20 non-s tress test No observ ation record ed. [email or web address] [facility] [address], [place], [address], 08/11/2025 17:38:11 08/15/20 25 08/15/2025 non-s tress test No observ ation record ed. [place] [id number], [place], [address], 08/21/2025 10:18:57 08/15/2008/15/2025 US, obste tric, bioph ysica l profi le No observ ation record ed. [address], [place], [address], 08/17/2025 10:50:53 08/18/2008/18/2025 US, obste tric, bioph ysica l profi le + non-s tress test No observ ation record ed. [email or web address] [facility] [address], [place], [address], 08/18/2025 10:21:39 08/18/2008/18/2025 US, obste tric, bioph ysica l profi le + non-s tress test No observ ation record ed. [email or web address] [address], [place], [address], 08/18/2025 10:35:44 08/18/2008/18/2025 non-s tress test No observ ation record ed. [email or web address] [facility] [address], [place], [address], 08/18/2025 17:34:03 08/18/20 non-s tress test No observ ation record ed. [email or web address] [facility] [address], [place], [address], 08/18/2025 16:06:09 08/25/2008/25/2025 US, obste tric, bioph ysica l profi le + non-s tress test No observ ation record ed. [email or web address] [facility] [address], [place], [address], 08/25/2025 18:52:06 08/25/20 25 08/25/2025 US, obste tric, follo w-up No observ ation record ed. [email or web address] [address], [place], [address], 08/25/2025 15:47:28 08/25/20 25 08/25/2025 non-s tress test No observ ation record ed. [email or web address] [facility] [address], [place], [address], 08/25/2025 18:12:15 08/25/20 non-s tress test No observ ation record ed. [place] [address], [place], [address], 08/25/2025 17:21:19 08/30/20 25 08/30/2025 non-s tress test No observ ation record ed. [address], [place], [address], 09/15/2025 15:26:49 09/01/20 25 09/01/2025 non-s tress test No observ ation record ed. [place] [id number] [facility] [address], [place], [address], 09/13/2025 11:32:22 09/01/20 25 09/01/2025 US, mistye tric No observ ation record ed. [place] [id number] [facility] [address], [place], [address], 09/02/2025 15:56:01 09/01/20 25 09/01/2025 non-s tress test No observ ation record ed. [email or web address] [id number] [facility] [address], [place], [address], 09/02/2025 14:32:38 09/16/20 09/16/2025 imagi ng/di agnos tic resul t No observ ation record ed. [facility] [address], [place], [address], 09/16/2025 18:07:05 Result Notes None recorded. Problems Name Problem SNOMED Code Status Onset Date Resolution Date Notes Provider Name and Address Organization Details Recorded Time Hypereme sis 314242728 Completed phenerga n now prn Asia ramos [facility] 2 16:43:51 Anxiety in pregnanc y 5020202921 [id number] Completed will continue to monitor Asia ramos [facility] 2 16:43:51 Past pregnanc y history of gestatio nal diabetes mellitus 129021231 Completed Early 1 hr GTT @ 20wks 11/03 APPT Asia ramos [facility] 2 16:43:51 Spinal muscular atrophy 3376342 Completed Carrier - Not in contact with FOB. Asia ramos [facility] 2 16:43:51 Anxiety 79150884 Completed prozac Karina ramos [facility] 4 11:00:46 Nausea [id number] Completed d/c zofran pump 11/08 per pt request Karina ramos [facility] 4 11:00:46 Postpart um [email or web address] [id number] Completed hx 2017 with d&c Karina ramos [facility] 4 11:00:46 Normal pregnanc y in multigra jessy [id number] Completed 201907/05/2021 Encounte r for supervis ion of other normal pregnanc y, 3rd trimeste r;Record ed Elsewher e: No Locat ion: Jaelyn castillo [facility] S ource: EHR Gamemaster yvrose: N Natalyati ce ID: 0001 Gigi lable Time: 10:45:00 AM Karina ramos [facility] 10:15:27 Gestatio n period, 37 weeks 34580406 Completed 201907/05/2021 37 weeks gestatio n of pregnanc y;Record ed Elsewher e: No Locat ion: [facility] S ource: EHR Gamemaster yvrose: N Natalyati ce ID: 0001 Gigi lable Time: 09:00:00 AM Karina ramos [facility] 10:15:[address] Concept Completed 201907/05/2021 Matern care for abnlt fetl hrt rate or rhym, 3rd tri, unsp;Rec orded Elsewher e: No Locat ion: [facility] S ource: EHR Gamemaster yvrose: N Natalyati ce ID: 0001 Gigi lable Time: 08:45:00 AM Karina ramos [facility] 10:15:29 Gestatio nal diabetes mellitus 98313648 Completed 201907/05/2021 Gestatio nal diabetes mellitus in pregnanc y, diet controll ed;Recor ded Elsewher e: No Locat ion: [facility] S ource: EHR Gamemaster yvrose: N Natalyati ce ID: 0001 Gigi lable Time: 11:45:00 AM Karina ramos [facility] 10:15:25 Gestatio n period, 38 weeks 92625465 Completed 201907/05/2021 38 weeks gestatio n of pregnanc y;Record ed Elsewher e: No Locat ion: [facility] S ource: EHR Gamemaster yvrose: N Practi ce ID: 0001 Gigi lable Time: 11:30:00 AM Karina ramos [facility] 10:15:13 Amenorrh ea 23929377 Completed 202007/10/2021 Tammi Jones null, [facility] 13:08:35 Pregnanc y 54277285 Completed 202003/29/2022 Emma Dykes null, [facility] 12:28:48 Pregnanc y 01920882 Completed 202304/22/2024 Emma Dykes null, [facility] 12:28:48 Headache 56744282 Active 2023 Karina Burroughs null, [facility] 16:19:28 Pregnanc y 57877730 Completed 202309/14/2025 Emma Dykes null, [facility] 12:28:48 Uncompli cated moderate persiste nt asthma 957687165 Completed 2024 albutero l prn Shawn Bradley MD [address], [place], [address], [facility] 13:08:36 Anxiety 27521788 Completed 2024 sertrali ne started 03/02/25 changed to prozac 10 on Shawn Bradley MD [address], [place], [address], [facility] 17:05:48 Nausea and vomiting 46022488 Completed 2024 Shawn Bradley MD [address], [place], [address], [facility] 13:20:27 Placenta circumva llata 7116806 Completed 2024 32wk growth Ryann Castro null, [facility] 5 09:44:35 Frequent headache 566995238 Completed 2024 transpor t to [facility] 05/21, discharg e 05/23 MF referral [...] than 2-3 times a week. Ryann ramos [facility] 5 10:55:26 Abnormal placenta affectin g manageme nt of mother 86735211 Completed 2024 MCI serial growth us Ryann ramos [facility] 5 10:46:25 Iron deficien cy anemia 60188750 Completed [facility]24 [facility] venofer 200mg x1 HGB 10.6 Ryann ramos [facility] 5 15:21:25 Gestatio nal diabetes mellitus 30793564 Completed 2024 checking bs QID - ruled in GDM Referral faxed to [facility] 07/07 Ryann ramos [facility] 5 14:36:52 Notes:[facility], and home health already caring for pt. Vladimir RDZ at [phone] Problem Notes None recorded. Procedures Surgical History Date Name Laterality Status Provider Name and Address Organization Details Recorded Time 025 SALPINGECTOMY, LAPAROSCOPIC (SURG) completed Not Available [facility] 09/06/2025 11:19:17 025 Date of Last Pap Smear completed Karina Burroughs [facility] 01/28/2025 11:19:42 024 Nexplanon Removal completed Shawn Bradley MD [address], [place], [address], [facility] 08/05/2024 15:09:58 024 Control Implant Insertion completed Anju Mcnamara CNM [address], [place], [address], [facility] 05/08/2024 17:59:34 024 cholecystectomy completed Karina Burroughs [facility] 03/31/2025 09:18:57 018 Dilation and Curettage completed Karina Burroughs [facility] 07/05/2021 10:17:50 Imaging Results None recorded. Procedure Notes None recorded. Medical Equipment None Reported. Allergies Allergen ID Allergen Name Allergen Category Reaction Reaction Severity Criticality Documentation Date Start Date Code Code System Note Provider Name and Address Organization Details Recorded Time 03901 terbutali ne medicatio n anaphylax is Not available Not available 01/27/20252021 64297 RxNorm Karina ramos, [facility] 16:19:27 20451 amoxicill in medicatio n Not available Not available Not available 09/10/2025 723 RxNorm Not Available gene - External Data Service - prod 16:39:37 01915 terbinafi ne medicatio n anaphylax is Not available [facility] 09/10/20252024 68167 RxNorm Not Available [employer] External Data Service - prod 16:40:54 Medications [...] Prescrib ed Elsewher e: Yes Loca tion: [facility] odify By: prabhjot Lee r [...] n (supplie d by office) insert lot [id number] Exp 01/2026 Not Available Not Available Not Available 28 mg iron-800 mcg tablet 07/05 completed Prescrib ed Elsewher e: Yes Loca tion: [facility] odify By: prabhjot Lee r DateTime : 01/14/20 10:45:00 AM Not Available Not Available Not Available lidocaine 5 % topical ointment APPLY OINTMENT EXTERNAL LY TO RIBS THREE TIMES DAILY NEEDED 01/14 completed Not Available Not Available Not Available PECAN PICKER-PNV-DH A 28 mg iron-1 mg-200 mg capsule [...] Updated DateTime 08/04/2025 162.56 cm 31.1 kg/m2 00677.22 g 112/71 mm[Hg] Toya Perkins [facility] 08/04/2025 15:09:59 Social History Question Answer Notes LastModified by Organizat ion Details LastModified Time Tobacco Smoking Status Former Smoker Karina ramos, [facility] 07/05/2021 09:06:21 If You Are , What Was Your Level Of Alcohol Consumption Prior To ? Occasional [email or web address] Information not available 03/31/2025 Are You Blind Or Do You Have Difficulty Seeing? No [email or web address] Information not available 07/05/2021 What Is Your Level Of Caffeine Consumption? Heavy [email or web address] Information not available 07/05/2021 In The 14 Days Before Symptom Onset, Have You Had Close Contact With A Laboratory-confir med COVID-19 While That Case Was Ill? No [email or web address] Information not available 07/05/2021 In The 14 Days Before Symptom Onset, Have You Had Close Contact With A Person Who Is Under Investigation For COVID-19 While That Person Was Ill? No [email or web address] Information not available 07/05/2021 Have You Been To An Area Known To Be High Risk For COVID-19? No [email or web address] Information not available 07/05/2021 Are You Deaf Or Do You Have Serious Difficulty Hearing? No [email or web address] Information not available 07/05/2021 What Type Of Diet Are You Following? REGULAR [email or web address] Information not available 07/05/2021 Which Illicit Or Recreational Drugs Have You Used? Marijuana [email or web address] Information not available 07/05/2021 Have You Ever Been Counseled For Unhealthy Alcohol Use? No [email or web address] Information not available 07/05/2021 Do You Use Your Seat Belt Or Car Seat Routinely? Yes [email or web address] Information not available 07/05/2021 Do You Have Smoke And Carbon Monoxide Detectors In Your Home? Yes [email or web address] Information not available 07/05/2021 Do You Use Sunscreen Routinely? Yes [email or web address] Information not available 07/05/2021 Has Tobacco Cessation Counseling Been Provided? No [email or web address] Information not available 07/05/2021 Have You Used IV Drugs? No Information not available 07/05/2021 Do You Have Difficulty Walking Or Climbing Stairs? No Information not available 12/06/2021 Sex: Unknown Functional Status Question Answer Note LastModified by [employer] ion Details LastModified Time Do you use any illicit or recreational drugs? Yes [email or web address] Information not available 07/05/2021 Do you or have you ever used any other forms of tobacco or nicotine? Yes [email or web address] Information not available 07/05/2021 What is your level of alcohol consumption? None [email or web address] Information not available 03/31/2025 Do you or have you ever used smokeless tobacco? Never used smokeless tobacco [email or web address] Information not available 07/05/2021 Are you able to walk independently without assistance or assistive devices? YESWOREST [email or web address] Information not available 07/05/2021 Are you able to care for yourself independently? Yes [email or web address] Information not available 12/06/2021 Do you have difficulty dressing, bathing, grooming, or toileting? No [email or web address] Information not available 12/06/2021 Do you or have you ever used e-cigarettes or vape? Current user of electronic cigarettes [email or web address] Information not available 07/05/2021 What is your exercise level? Occasional [email or web address] Information not available 07/05/2021 Mental Status Question Answer Note LastModified by Organization D etails LastModified Time Do you feel stressed (tense, restless, nervous, or anxious, or unable to sleep at night)? 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 Z3A.30 7126685 [id number] [facility] [address],[place] [address] 07/07/2025 10:14:33 07/07/2025 11:38:54 Gestation period, 30 weeks 49195380 Z3A.30 0730900 cont pnv Nausea 484219962 R11.0 84699 Gestationa l diabetes mellitus 99370834 O24.419 39202272 [id number] [facility] [address],[place] [address] 07/21/2025 09:28:54 07/21/2025 12:36:06 Pain in pelvis 94189613 R10.2 479578 Gestation period, 32 weeks 3228323 Z3A.32 5984088 [id number] Shawn Bradley MD [facility] [address],[place] [address] 08/04/2025 14:02:59 08/04/2025 15:06:33 Gestational diabetes mellitus 52608863 O24.410 O43.103 O43.113 Z3A.34 74258511 [id number] [facility] [address],[place] [address] 08/04/2025 14:21:57 08/04/2025 15:26:03 Gestation period, 34 weeks 48921330 Z3A.34 3155922 Pruritic d isorder of skin 3658631953 L29.9 09149 plan labs today, ursadiol BID Health Concerns Section Related Observation LastModified by Organization Detai ls LastModified Time None Recorded Concern Status LastModified by Organization Details LastModified Time None Recorded Payers Encounter Date Sequence Insurance Name Policy Number Policy Roberts Covered Member ID Roberts Member ID Guarantor Name 08/04/2025 1 [facility] (MEDICAID HMO) [id number] Yuni Roberto [id number] Yuni Mejia Notes Date Note Type Note Provider Name and Address Organization Details Recorded Time 08/04/2025 text/html Generic HPI TemplateReported by Patient Anju Mcnamara CNM [address], [place], [address], [place] [facility] 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 Status 03/02/20 25 1 B Positive 164 CLOSED Fetus Data First Name Last Name Admitted to NICU Weight (g) Sex Living Outcome Pediatric Complications Fetus ID Race Codes Race Delivery Type Gladis false 4025.62 9 F true Full Term 75642 Vaginal Delivery Problems Problem Notes SDH form completed 5GI consult Tachycardia Holter monitor 72 order- pt sent back on 03-27-25 Cardiology referral faxed per Dr Martínez office calling pt 04/21 to schedule consult scheduled 05/11 11:15AM Problem Name Start Date End Date Resolution Snomed Code Not e Uncomplicated moderate persistent asthma 03/02/2025 052223483 albuterol prn Abnormal placenta affecting management of mother 05/04/2025 80958128 MCI serial grow th us Iron deficiency anemia 05/25/2025 65660001 SS MFM tx [place] 200mg x1 HGB 10.6 Nausea and vomiting 03/02/2025 47428869 Anxiety 03/02/2025 42372105 sertralin e started 03/02/25 changed to prozac 10 on Gestational diabetes mellitus 07/08/2025 05093324 checking bs QID - ruled in GDM Referral faxed to [facility] 07/07 Frequent headache 05/03/2025 [id number] [place] to [facility] 05/21, discharge 05/23 MF referral faxed 05/24 [facility] Neurology consult pending per Toya RN [facility] unable to see pt due to insurance 05/25[facility] 07/05/25 Level US & Consult (see MFM consult zayas recommendations ) regimen prn Imitrex 50mg for acute migraine, vitamin B2 (Riboflavin) 400mg, Coenzyme q10 300mg and magnesium oxide 200 to 600mg daily. minimize use of Excedrin or Tylenol to no more than 2-3 times a week. 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 went to ed exam done cultures and rx sent, ?FM, await personnel monitor results rfilled zofran, precautions and education [...] Type Weight in lbs Pre/Post Dialysis Refused 168.462193236695 BP Diastolic BP Location Tested BP Systolic [...] Type Weight in lbs Pre/Post Dialysis Refused 169.823714464383 BP Diastolic BP Location Tested BP Systolic [...] Weight in lbs Pre/Post Dialysis Refused Weight 175.210077583530 BP Diastolic BP Location Tested BP Systolic [...] Weight in lbs Pre/Post Dialysis Refused Weight 182.072027723347 BP Diastolic BP Location Tested BP Systolic BP Type 77 L arm 127 sitting Fetus Heart Rate Present Fetus Movement A Yes Comments migraines resolved, +FM US t linda, reflux bothersome, gct today reviewed precautions education Flowsheet Date 07/07/2025 Gibsno Score Blood Edema Fundus Height Fundus [...] Weight in lbs Pre/Post Dialysis Refused Weight 181.486874912158 BP Diastolic BP Location Tested BP Systolic BP Type 73 L arm 131 sitting Fetus Heart Rate Present Fetus Movement A Yes Comments viral URI testied neg at urg ent care, nausea resolved, efw 68%, +FM plan education and precautions f/u 2 weeks diagnosed GDM, plan support teacher, gave list reviewed protein vs carb Flowsheet Date 07/21/2025 Gibson Score Blood Edema Fundus Height Fundus Units Glucose Ketones Leukocytes Nitrite Labor Signs Protein Cervic Dilation Cervic Effacement Cervic Station Type Weight in lbs Pre/Post Dialysis Refused Weight 181.301915263441 BP Diastolic BP Location Tested BP Systolic BP Type 78 L arm 127 sitting Fetus Heart Rate Present A 150 Fetus Movement A Yes Comments rpt urine culture +FM review ed blood sugars, meets with support teacher today, precautions and education f/u 2 weeks [...] Weight in lbs Pre/Post Dialysis Refused Weight 181.979188796213 BP Diastolic BP Location Tested BP Systolic [...] Weight in lbs Pre/Post Dialysis Refused Weight 183.472918895866 BP Diastolic BP Location Tested BP Systolic [...] Type Weight in lbs Pre/Post Dialysis Refused 184.006594531631 BP Diastolic BP Location Tested BP Systolic [...] Type Weight in lbs Pre/Post Dialysis Refused 184.719151002424 BP Diastolic BP Location Tested BP Systolic [...] Type Weight in lbs Pre/Post Dialysis Refused 184.972013860165 BP Diastolic BP Location Tested BP Systolic [...] Weight in lbs Pre/Post Dialysis Refused Weight 184.357389382081 BP Diastolic BP Location Tested BP Systolic [...] Weight in lbs Pre/Post Dialysis Refused Weight 164.132918089066 BP Diastolic BP Location Tested BP Systolic [...]
--- OUTSIDE RECORDS SUMMARY | 2025-09-16 17:52 | XMS_ITS | Continuity of Care Document ---
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 Name Role Phone CARLOS ESTRADA Primary Care [...] Available [facility] [address], [place], [address], 03/06/2025 03:58:26 03/06/20 25 03/06/2025 [UNIT Y] ANEUP LOIDY NIPT sex chromosome aneuploidy NOT DETECT ED normal Not Available [facility] [address], [place], [address], 03/06/2025 03:58:26 03/06/20 25 03/06/2025 [UNIT Y] ANEUP LOIDY NIPT monosomy X LOW RISK <1 in 10,000 normal Not Available [facility] [address], [place], [address], 03/06/2025 03:58:26 03/06/20 25 03/06/2025 [UNIT Y] ANEUP LOIDY NIPT trisomy 13 LOW RISK <1 in 10,000 normal Not Available [facility] [address], [place], [address], 03/06/2025 03:58:26 03/06/20 25 03/06/2025 [UNIT Y] ANEUP LOIDY NIPT trisomy 18 LOW RISK <1 in 10,000 normal Not Available [facility] [address], [place], [address], 03/06/2025 03:58:26 03/06/20 25 03/06/2025 [UNIT Y] ANEUP LOIDY NIPT trisomy 21 LOW RISK <1 in 10,000 normal Not Available [facility] [address], [place], [address], 03/06/2025 03:58:26 03/06/20 25 03/06/2025 [UNIT Y] ANEUP LOIDY NIPT sex FEMALE normal Not Available [facility] [address], [place], [address], 03/06/2025 03:58:26 03/06/20 25 03/06/2025 [UNIT Y] ANEUP LOIDY NIPT gestation SINGLE TON normal Not Available [facility] [address], [place], [address], 03/06/2025 03:58:26 03/06/20 25 03/06/2025 [UNIT Y] ANEUP LOIDY NIPT for detailed report, see pdf See PDF normal Not Available [facility] [address], [place], [address], 03/06/2025 03:58:26 03/02/20 25 03/02/2025 CULTU RE: URINE result report SEE RESULT S BELOW Test: Cultu re: Urine Speci men Sourc e: Urine - Clean Catch Speci men Type: Urine Speci men Date: 025 1455 Resul t Date: 025 2138 Resul t Statu s: Final resul t Abnor mal: No Resul ting Lab: [facility] [address] [facility] [address] Tel: CULTU RE ----- ----- ----- --- No growt h in 1 day (dete ction level of 10,00 0 colon ies / ml.) Not Available [facility] (Lab) [address] [facility], [place], [address], 03/03/2025 22:42:27 03/12/2003/12/2025 CULTU RE: URINE result report SEE RESULT S BELOW Test: Cultu re: Urine Speci men Sourc e: Urine - Clean Catch Speci men Type: Urine Speci men Date: 2024 1600 Resul t Date: 2024 0610 Resul t Statu s: Final resul t Abnor mal: No Resul ting Lab: [facility] [address] [facility] [address] Tel: CULTU RE ----- ----- ----- --- No growt h in 1 day (dete ction level of 10,00 0 colon ies / ml.) Not Available [facility] (Lab) [address], [place], [address], 03/14/2025 07:15:03 03/12/2003/12/2025 urina lysis , dipst ick Leukocytes ++ Not Available [facility] [address], [place], [address], 03/12/2025 16:45:06 03/12/20 25 03/12/2025 urina lysis , dipst ick Protein + Not Available [employer] [address], [place], [address], 03/12/2025 16:45:06 03/12/20 03/12/2025 urina lysis , dipst ick pH 5 Not Available [employer] [address], [place], [address], 03/12/2025 16:45:06 03/12/20 25 03/12/2025 urina lysis , dipst ick Blood trace Not Available [employer] [address], [place], [address], 03/12/2025 16:45:06 03/12/20 25 03/12/2025 urina lysis , dipst ick Specific [place] 1.015 Not Available [facility] [address], [place], [address], 03/12/2025 16:45:06 03/12/20 25 03/12/2025 urina lysis , dipst ick Ketone +++ Not Available [employer] [address], [place], [address], 03/12/2025 16:45:06 03/31/20 25 03/31/2025 TSH, REFLE X FREE T4 TSH 0.42 uIU/m L 0.30-5 .33 Not Available [facility] (Lab) [address] [facility], [place], [address], 04/01/2025 03:05:12 03/31/20 25 03/31/2025 CULTU RE: URINE result report SEE RESULT S BELOW Test: Cultu re: Urine Speci men Sourc e: Urine Voide d Speci men Type: Urine Speci men Date: 1710 Resul t Date: 6 Resul t Statu s: Final resul t Abnor mal: No Resul ting Lab: [facility] [address] [facility] [address] Tel: CULTU RE ----- ----- ----- --- Cultu re resul t (>=3 organ isms prese nt) indic ates possi ble conta minat ion. Repea t cultu re if sympt oms indic ate. Not Available [facility] (Lab) [address], [place], [address], 04/01/2025 23:59:19 03/31/20 25 03/31/2025 urina lysis , dipst ick Leukocytes +1 Not Available [facility] [address], [place], [address], 03/31/2025 09:23:13 03/31/20 25 03/31/2025 urina lysis , dipst ick Nitrite normal Not Available [employer] [address], [place], [address], 03/31/2025 09:23:13 03/31/20 25 03/31/2025 urina lysis , dipst ick Urobilinogen normal Not Available [facility] david [address], [place], [address], 03/31/2025 09:23:13 03/31/20 25 03/31/2025 urina lysis , dipst ick Protein trace Not Available [employer] [address], [place], [address], 03/31/2025 09:23:13 03/31/20 25 03/31/2025 urina lysis , dipst ick pH 5 Not Available [employer] [address], [place], [address], 03/31/2025 09:23:13 03/31/20 25 03/31/2025 urina lysis , dipst ick Specific [place] 1.020 Not Available [facility] [address], [place], [address], 03/31/2025 09:23:13 03/31/20 25 03/31/2025 urina lysis , dipst ick Ketone normal Not Available [employer] [address], [place], [address], 03/31/2025 09:23:13 03/31/20 25 03/31/2025 urina lysis , dipst ick Bilirubin normal Not Available [facility] anna [address], [place], [address], 03/31/2025 09:23:13 03/31/20 25 03/31/2025 urina lysis , dipst ick Glucose normal Not Available [employer] [address], [place], [address], 03/31/2025 09:23:13 03/31/20 25 03/31/2025 urina lysis , dipst ick Appearance normal Not Available [facility] domingo [address], [place], [address], 03/31/2025 09:23:13 03/31/20 25 03/31/2025 urina lysis , dipst ick Color normal Not Available [employer] [address], [place], [address], 03/31/2025 09:23:13 04/01/20 25 04/01/2025 WOMEN 'S HEALT H SWAB PLUS, DENIS bacterial vaginosis (bv), tma Negati ve negati ve Not Available [facility] (Lab) [address] [place], [address], 04/02/2025 14:08:45 04/01/20 25 04/01/2025 WOMEN 'S HEALT H SWAB PLUS, DENIS mekhi species, tma Negati ve negati ve Not Available [facility] (Lab) [address] [place] [place], [address], 04/02/2025 14:08:45 04/01/20 25 04/01/2025 WOMEN 'S HEALT H SWAB PLUS, DENIS mekhi glabrata, tma Negati ve negati ve Not Available [facility] (Lab) [address] [place], [address], 04/02/2025 14:08:45 04/01/2004/01/2025 WOMEN 'S HEALT H SWAB PLUS, DENIS trichomonas vaginalis, tma Negati ve negati ve Not Available [facility] (Lab) [address] [facility], [place], [address], 04/02/2025 14:08:45 04/01/2004/01/2025 [facility], DENIS chlamydia trachomatis, PCR Negati ve negati ve Not Available [facility] (Lab) [address] [place], [address], 04/02/2025 14:08:45 04/01/2004/01/2025 WOMEN 'S HEALT H [...] ded in this panel . Not Available [facility] (Lab) [address] [facility], [place], [address], 04/02/2025 14:08:45 04/22/2004/22/2025 CULTU RE: URINE result report SEE RESULT S BELOW Test: Cultu re: Urine Speci men Sourc e: Urine Voide d Speci men Type: Urine Speci men Date: 2024 1314 Resul t Date: 2024 0322 Resul t Statu s: Final resul t Abnor mal: No Resul ting Lab: [facility] [address] [facility] [address] [facility] [address] Tel: CULTU RE ----- ----- ----- --- No growt h in 1 day (dete ction level of 10,00 0 colon ies / ml.) Not Available [facility] (Lab) [address] [facility], [place], [address], 04/24/2025 04:28:01 04/22/20 25 04/22/2025 urina lysis , dipst ick Leukocytes + Not Available [facility] dom[address], [place], [address], 04/22/2025 10:01:51 04/22/20 25 04/22/2025 urina lysis , dipst ick Protein + Not Available [employer] [address], [place], [address], 04/22/2025 10:01:51 04/22/20 25 04/22/2025 urina lysis , dipst ick pH 8 Not Available [employer] [address], [place], [address], 04/22/2025 10:01:51 04/22/20 25 04/22/2025 urina lysis , dipst ick Blood + Not Available [employer] [address], [place], [address], 04/22/2025 10:01:51 04/22/20 25 04/22/2025 urina lysis , dipst ick Specific [place] 1.010 Not Available [facility] [address], [place], [address], 04/22/2025 10:01:51 04/22/2004/22/2025 urina lysis , dipst ick Ketone + Not Available [employer] [address], [place], [address], 04/22/2025 10:01:51 06/23/2006/23/2025 HEMAT OCRIT (HCT) HCT 35.6 % (based on docume nted legal sex) 34.0-4 5.0 Not Available [facility] (Lab) [address] [facility], [place], [address], 06/24/2025 11:45:32 06/23/20 25 06/23/2025 HEMOG LOBIN (HGB) HGB 11.1 g/dL (based on docume nted legal sex) 11.6-1 5.4 low Not Available [facility] (Lab) [address] [facility], [place], [address], 06/24/2025 11:45:32 06/23/20 25 06/23/2025 GTT - GESTA ROLAND L JOSE N, ACOG OB glucose, 1 hour screen 180 mg/dL 70-135 high Not Available [facility] (Lab) [address] [place], [address], 06/24/2025 11:45:33 06/23/20 25 06/23/2025 HIV 1/2 ANTIG EN/AN TIBOD Y, REFLE X CONFI RMATI ON HIV antigen/anti body Nonrea ctive nonrea ctive HIV-1 antig en and HIV-1 /HIV- 2 antib odies were not detec greg. No labor atory evide nce of HIV infec tion. Not Available [facility] (Lab) [address], [place], [address], 06/24/2025 11:45:33 08/06/23/2025 RPR SCREE N, REFLE X TITER /CONF IRMAT ION RPR qualitative Nonrea ctive nonrea ctive Not Available [facility] (Lab) [address] [facility], [place], [address], 06/24/2025 11:45:34 07/21/2007/21/2025 CULTU RE: URINE result report SEE RESULT S BELOW Test: Cultu re: Urine Speci men Sourc e: Urine - Clean Catch Speci men Type: Urine Speci men Date: 2024 1024 Resul t Date: 2024 0252 Resul t Statu s: Final resul t Abnor mal: No Resul ting Lab: [facility] [address] [facility] [address] Tel: CULTU RE ----- ----- ----- --- No growt h in 1 day (dete ction level of 10,00 0 colon ies / ml.) Not Available [facility] (Lab) [address] [facility], [place], [address], 07/23/2025 03:57:01 07/21/2007/21/2025 urina lysis , dipst ick Leukocytes ++ Not Available [address], [place], [address], 07/21/2025 11:03:04 07/21/20 25 07/21/2025 urina lysis , dipst ick Nitrite neg Not Available [employer] [address], [place], [address], 07/21/2025 11:03:04 07/21/20 25 07/21/2025 urina lysis , dipst ick Urobilinogen neg Not Available [facility] [address], [place], [address], 07/21/2025 11:03:04 07/21/20 25 07/21/2025 urina lysis , dipst ick Protein + Not Available [employer] [address], [place], [address], 07/21/2025 11:03:04 07/21/20 25 07/21/2025 urina lysis , dipst ick pH 5 Not Available [employer] [address], [place], [address], 07/21/2025 11:03:04 07/21/20 25 07/21/2025 urina lysis , dipst ick Specific [place] 1.030 Not Available [facility] [address], [place], [address], 07/21/2025 11:03:04 07/21/20 25 07/21/2025 urina lysis , dipst ick Ketone +++ Not Available [employer] [address], [place], [address], 07/21/2025 11:03:04 07/21/20 25 07/21/2025 urina lysis , dipst ick Bilirubin neg Not Available [facility] [address], [place], [address], 07/21/2025 11:03:04 07/21/20 25 07/21/2025 urina lysis , dipst ick Glucose neg Not Available [employer] [address], [place], [address], 07/21/2025 11:03:04 07/21/20 25 07/21/2025 urina lysis , dipst ick Appearance cloudy Not Available [address], [place], [address], 07/21/2025 11:03:04 07/21/20 25 07/21/2025 urina lysis , dipst ick Color dark Not Available [employer] [address], [place], [address], 07/21/2025 11:03:04 08/04/2008/04/2025 CMP(C OMPRE HENSI VE METAB OLIC PANEL ) sodium 138 mmol/ L 133-14 6 Not Available [facility] (Lab) [address] [facility], [place], [address], 08/05/2025 13:39:18 08/04/20 25 08/04/2025 CMP(C OMPRE HENSI VE METAB OLIC PANEL ) potassium 4.0 mmol/ L 3.5-5. 1 Not Available [facility] (Lab) [address] [facility], [place], [address], 08/05/2025 13:39:18 08/04/20 25 08/04/2025 CMP(C OMPRE HENSI VE METAB OLIC PANEL ) chloride 105 mmol/ L 98-107 Not Available [facility] (Lab) [address] [facility], [place], [address], 08/05/2025 13:39:18 08/04/20 25 08/04/2025 CMP(C OMPRE HENSI VE METAB OLIC PANEL ) carbon dioxide 25 mmol/ L 21-31 Not Available [facility] (Lab) [address] [facility], [place], [address], 08/05/2025 13:39:18 08/04/20 25 08/04/2025 CMP(C OMPRE HENSI VE METAB OLIC PANEL ) anion gap 8 mmol/ L 4-13 Not Available [facility] (Lab) [address] [place], [address], 08/05/2025 13:39:18 08/04/20 25 08/04/2025 CMP(C OMPRE HENSI VE METAB OLIC PANEL ) blood urea nitrogen 10 mg/dL 7-25 Not Available [facility] (Lab) [address] [facility], [place], [address], 08/05/2025 13:39:18 08/04/20 25 08/04/2025 CMP(C OMPRE HENSI VE METAB OLIC PANEL ) creatinine 0.41 mg/dL 0.60-1 .30 low Not Available [facility] (Lab) [address] [facility], [place], [address], 08/05/2025 13:39:18 08/04/20 25 08/04/2025 CMP(C OMPRE HENSI VE METAB OLIC PANEL ) egfrcr (CKD-epi 2020) >90 mL/mi n/1.7 3_m2 >=60 Not Available [facility] (Lab) [address] [facility], [place], [address], 08/05/2025 13:39:18 08/04/20 25 08/04/2025 CMP(C OMPRE HENSI VE METAB OLIC PANEL ) calcium 8.9 mg/dL 8.3-10 .5 Not Available [facility] (Lab) [address] [facility], [place], [address], 08/05/2025 13:39:18 08/04/20 25 08/04/2025 CMP(C OMPRE HENSI VE METAB OLIC PANEL ) glucose 116 mg/dL 70-100 high Not Available [facility] (Lab) [address] [facility], [place], [address], 08/05/2025 13:39:18 08/04/20 25 08/04/2025 CMP(C OMPRE HENSI VE METAB OLIC PANEL ) protein, total 6.1 g/dL 6.4-8. 3 low Not Available [facility] (Lab) [address] [facility], [place], [address], 08/05/2025 13:39:18 08/04/20 25 08/04/2025 CMP(C OMPRE HENSI VE METAB OLIC PANEL ) albumin 3.5 g/dL 3.5-5. 0 Not Available [facility] (Lab) [address] [facility], [place], [address], 08/05/2025 13:39:18 08/04/20 25 08/04/2025 CMP(C OMPRE HENSI VE METAB OLIC PANEL ) ALT 11 units /L 9-43 Not Available [facility] (Lab) [address] [facility], [place], [address], 08/05/2025 13:39:18 08/04/20 25 08/04/2025 CMP(C OMPRE HENSI VE METAB OLIC PANEL ) alkaline phosphatase 98 units /L 34-104 Not Available [facility] (Lab) [address] [facility], [place], [address], 08/05/2025 13:39:18 08/04/20 25 08/04/2025 CMP(C OMPRE HENSI VE METAB OLIC PANEL ) AST 15 units /L 13-39 Not Available [facility] (Lab) [address] [facility], [place], [address], 08/05/2025 13:39:18 08/04/20 25 08/04/2025 CMP(C OMPRE HENSI VE METAB OLIC PANEL ) bilirubin, total 0.3 mg/dL 0.2-1. 2 Not Available [facility] (Lab) [address] [facility], [place], [address], 08/05/2025 13:39:18 08/04/20 25 08/04/2025 BILE ACIDS , TOTAL bile acids, total 4 umol/ L 0-10 Test Perfo rmed by: Luke hern[facility]dez [facility] [address] [address] Not Available [facility] (Lab) [address] [facility], [place], [address], 08/05/2025 13:39:19 03/02/20 25 03/02/2025 US, obste tric, nucha l trans lucen cy No observ ation record ed. [email or web address] [employer] [address], [place], [address], 03/02/2025 13:35:30 03/02/20 25 03/02/2025 US, obste tric, nucha l trans lucen cy No observ ation record ed. [email or web address] [address], [place], [address], 03/03/2025 14:08:39 03/08/20 25 03/08/2025 US, obste tric, 1st trime ster No observ ation record ed. [email or web address] [employer] [address], [place], [address], 03/08/2025 12:22:22 03/08/20 25 03/08/2025 US, obste tric, 1st trime ster No observ ation record ed. [email or web address] Esha [address], [place], [address], 03/10/2025 15:03:13 04/01/20 25 03/24/2025 qamar r monit or No observ ation record ed. [address] [facility], [place], [address], 04/08/2025 12:36:45 04/01/20 25 03/22/2025 qamar r monit or No observ ation record ed. [address] (Pulmonary) [address] [place] [address] [address] [facility], [place], [address], 04/06/2025 08:59:34 04/20/20 25 04/20/2025 US, obste tric, limit ed No observ ation record ed. [email or web address] [employer] [address], [place], [address], 04/20/2025 17:39:30 04/20/20 25 04/20/2025 US, obste tric, follo w-up No observ ation record ed. [email or web address] [address], [place], [address], 04/23/2025 08:32:54 04/28/20 25 04/28/2025 US, obste tric, 2nd or 3rd trime ster No observ ation record ed. [email or web address] [employer] [address], [place], [address], 04/28/2025 17:48:42 04/28/20 25 04/28/2025 US, obste tric, 2nd or 3rd trime ster No observ ation record ed. [email or web address] [address]sha [address] [facility] [address], [place], [address], 05/04/2025 22:16:11 05/07/20 25 05/07/2025 non-s tress test No observ ation record ed. [address], [place], [address], 05/28/2025 13:33:54 05/21/20 25 05/21/2025 CT, head + brain , w/o contr ast No observ ation record ed. [address], [place], [address], 05/24/2025 13:48:57 05/28/20 25 05/28/2025 US, obste tric, follo w-up No observ [facility]ion [facility] ed. [email or web address] [address], [place], [address], 05/28/2025 17:32:34 05/28/20 25 05/28/2025 US, obste tric, follo w-up No observ ation record ed. Esha [address], [place], [address], 06/01/2025 15:13:13 06/08/20 25 06/07/2025 US, obste tric, follo w-up No observ ation record ed. [email or web address] [facility] [address] , [place], [address], 06/15/2025 10:53:46 07/07/2007/07/2025 US, obste tric, follo w-up No observ ation record ed. [email or web address] [employer] [address], [place], [address], 07/07/2025 13:18:01 07/07/20 25 07/07/2025 US, obste tric, follo w-up No observ ation record ed. [email or web address] [address], [place], [address], 07/07/2025 11:29:37 08/04/2008/04/2025 US, obste tric, follo w-up No observ ation record ed. [email or web address] [employer] [address], [place], [address], 08/04/2025 15:08:50 08/04/20 25 08/04/2025 US, obste tric, follo w-up No observ ation record ed. Esha [address], [place], [address], 08/06/2025 10:41:50 08/11/2008/11/2025 non-s tress test No observ ation record ed. [email or web address] [employer] [address], [place], [address], 08/11/2025 17:37:52 08/11/20 non-s tress test No observ ation record ed. [email or web address] [employer] [address], [place], [address], 08/11/2025 17:38:11 08/15/20 25 08/15/2025 non-s tress test No observ ation record ed. [address], [place], [address], 08/21/2025 10:18:57 08/15/2008/15/2025 US, obste tric, bioph ysica l profi le No observ ation record ed. [email or web address] [facility] [address], [place], [address], 08/17/2025 10:50:53 08/18/2008/18/2025 US, obste tric, bioph ysica l profi le + non-s tress test No observ ation record ed. [email or web address] [employer] [address], [place], [address], 08/18/2025 10:21:39 08/18/2008/18/2025 US, obste tric, bioph ysica l profi le + non-s tress test No observ ation record ed. [email or web address] [address], [place], [address], 08/18/2025 10:35:44 08/18/2008/18/2025 non-s tress test No observ ation record ed. [employer] [address], [place], [address], 08/18/2025 17:34:03 08/18/20 non-s tress test No observ ation record ed. [email or web address] [employer] [address], [place], [address], 08/18/2025 16:06:09 08/25/2008/25/2025 US, obste tric, bioph ysica l profi le + non-s tress test No observ ation record ed. [email or web address] [employer] [address], [place], [address], 08/25/2025 18:52:06 08/25/2008/25/2025 US, obste tric, follo w-up No observ ation record ed. [email or web address] [address], [place], [address], 08/25/2025 15:47:28 08/25/20 25 08/25/2025 non-s tress test No observ ation record ed. [email or web address] [employer] [address], [place], [address], 08/25/2025 18:12:15 08/25/20 non-s tress test No observ ation record ed. [email or web address] [employer] [address], [place], [address], 08/25/2025 17:21:19 08/30/20 25 08/30/2025 non-s tress test No observ ation record ed. [email or web address] [address] [place] [address], [id number], 09/15/2025 15:26:49 09/01/20 25 09/01/2025 non-s tress test No observ ation record ed. [place] [id number] [facility], [place], [address], 09/13/2025 11:32:22 09/01/20 25 09/01/2025 [place], obste tric No observ ation record ed. [place] [id number] [facility] [address], [place], [address], 09/02/2025 15:56:01 09/01/2009/01/2025 non-s tress test No observ ation record ed. [address], [place], [address], 09/02/2025 14:32:38 09/16/20 25 09/16/2025 imagi ng/di agnos tic resul t No observ ation record ed. [place] [id number] [facility] [address], [place], [address], 09/16/2025 18:07:05 Result Notes None recorded. Problems Name Problem SNOMED Code Status Onset Date Resolution Date Notes Provider Name and Address Organization Details Recorded Time Hypereme sis [id number] Completed phenerga n now prn Asia Baileyrafakandyganeshpetrona arias rachel [facility] 2 16:43:51 Anxiety in pregnanc y [id number] Completed will continue to monitor Asia Baileyrafakandyganeshpetrona arias rachel [facility] 2 16:43:51 Past pregnanc y history of gestatio nal diabetes mellitus [id number] Completed Early 1 hr GTT @ 20wks 11/03 APPT Asia Baileyrafakandyganeshpetrona arias [facility] 2 16:43:51 Spinal muscular atrophy 4647665 Completed Carrier - Not in contact with FOB. Asia Luis ramos [facility] 2 16:43:51 Anxiety 63752840 Completed prozac Karina ramos [facility] 4 11:00:46 Nausea 587476873 Completed d/c zofran pump 11/08 per pt request Karina ramos [facility] 4 11:00:46 Postpart um hemorrha ge [id number] Completed 2017 with d&c Karina ramos [facility] 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 1 10:15:27 Gestatio n period, 37 weeks 62485798 Completed 201907/05/2021 37 weeks gestatio n of pregnanc y;Record ed Elsewher e: No Locat ion: 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 10:15:[address] Concept Completed 201907/05/2021 Matern care for abnlt fetl hrt rate or rhym, 3rd tri, unsp;Rec orded Elsewher e: No Locat ion: 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 10:15:29 Gestatio nal diabetes mellitus 44232882 Completed 201907/05/2021 Gestatio nal diabetes mellitus in pregnanc y, diet controll ed;Recor ded Elsewher e: No Locat ion: 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 10:15:25 Gestatio n period, 38 weeks 70403480 Completed 201907/05/2021 38 weeks gestatio n of pregnanc y;Record ed Elsewher e: No Locat ion: 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 10:15:13 Amenorrh ea 33057242 Completed 202007/10/2021 Tammi ramos [facility] 13:08:35 Pregnanc y 90260032 Completed 202003/29/2022 Emma Dykes null, [facility] 12:28:48 Pregnanc y 21877518 Completed 202304/22/2024 Emma Dykes null, [facility] 12:28:48 Headache 83364474 Active 2023 Karinasofia Burroughs null, [facility] 16:19:28 Pregnanc y 19495174 Completed 202309/14/2025 Emma Dykes null, [facility] 12:28:48 Uncompli cated moderate persiste nt asthma 389145279 Completed 2024 albutero l prn Shawn Bradley MD [address], [place], [address], [facility] 13:08:36 Anxiety 30876575 Completed 2024 sertrali ne started 03/02/25 changed to prozac 10 on Shawn Bradley MD [address], [place], [address], [facility] 17:05:48 Nausea and vomiting 75733567 Completed 2024 Shawn Bradley MD [address], [place], [address], [facility] 13:20:27 Placenta circumva llata 3878175 Completed 2024 32wk growth Ryann Castro null, [facility] 09:44:35 Frequent headache 503173514 Completed 2024 transpor t to [facility] 05/21, discharg e 05/23 [facility] referral faxed 05/24 [facility] pending per KAJAL Pittman [facility]- [facility] unable to see pt due to insuranc e 05/25 [facility] 07/05/25 Level US & Consult (see [facility] consult zyaas recommen dations ) regimen prn Imitrex 50mg for acute migraine , vitamin B2 (Ribofla mesfin) 400mg, Coenzyme q10 300mg and magnesiu m oxide 200 to 600mg daily. minimize use of Excedrin or Tylenol to no more than 2-3 times a week. Ryann Matthew ramos [facility] 5 10:55:26 Abnormal placenta affectin g manageme nt of mother 40773148 Completed 2024 MCI serial growth us Ryann Castro rachel [facility] 5 10:46:25 Iron deficien cy anemia 18367511 Completed 2024 [facility] tx venofer 200mg x1 HGB 10.6 Ryann Matthew ramos [facility] 5 15:21:25 Gestatio nal diabetes mellitus 32719206 Completed 2024 checking bs QID - ruled in GDM Referral faxed to [facility] 07/07 Ryann Matthew ramos [facility] 5 14:36:52 Notes:Order faxed to [facility] r access 08/10 for PICC line, and home health already caring for pt. Vladimir RDZ at [phone] Problem Notes None recorded. Procedures Surgical History Date Name Laterality Status Provider Name and Address Organization Details Recorded Time 025 SALPINGECTOMY, LAPAROSCOPIC (SURG) completed Not Available [facility] 09/06/2025 11:19:17 025 Date of Last Pap Smear completed Karina Burroughs [facility] 01/28/2025 11:19:42 024 Nexplanon Removal completed Shawn Bradley MD [address], [place], [address], [facility] 08/05/2024 15:09:58 024 Control Implant Insertion completed Anju Mcnamara CNM [address], [place], [address], [facility] 05/08/2024 17:59:34 024 cholecystectomy completed Karina Burroughs [facility] 03/31/2025 09:18:57 018 Dilation and Curettage completed Karina Burroughs [facility] 07/05/2021 10:17:50 Imaging Results None recorded. Procedure Notes None recorded. Medical Equipment None Reported. Allergies Allergen ID Allergen Name Allergen Category Reaction Reaction Severity Criticality Documentation Date Start Date Code Code System Note Provider Name and Address Organization Details Recorded Time 43439 terbutali ne medicatio n anaphylax is Not available Not available 01/27/20252021 49711 RxNorm Karina Burroughs [facility], [facility] 16:19:27 48415 amoxicill in medicatio n Not available Not available Not available 09/10/2025 723 RxNorm Not Available gene - External Data Service - prod 16:39:37 46572 terbinafi ne medicatio n anaphylax is Not available [facility] 09/10/20252024 22678 RxNorm Not Available [employer] External Data Service - prod 16:40:54 Medications [...] ed Elsewher e: Yes Loca tion: 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 07/05/2021 09:06:21 If You Are , What Was Your Level Of Alcohol Consumption Prior To ? Occasional [email or web address] Information not available 03/31/2025 Are You Blind Or Do You Have Difficulty Seeing? No [email or web address] Information not available 07/05/2021 What Is Your Level Of Caffeine Consumption? Heavy [email or web address] Information not available 07/05/2021 In The 14 Days Before Symptom Onset, Have You Had Close Contact With A Laboratory-confir med COVID-19 While That Case Was Ill? No [email or web address] Information not available 07/05/2021 In The 14 Days Before Symptom Onset, Have You Had Close Contact With A Person Who Is Under Investigation For COVID-19 While That Person Was Ill? No [email or web address] Information not available 07/05/2021 Have You Been To An Area Known To Be High Risk For COVID-19? No [email or web address] Information not available 07/05/2021 Are You Deaf Or Do You Have Serious Difficulty Hearing? No [email or web address] Information not available 07/05/2021 What Type Of Diet Are You Following? REGULAR [email or web address] Information not available 07/05/2021 Which Illicit Or Recreational Drugs Have You Used? Marijuana [email or web address] Information not available 07/05/2021 Have You Ever Been Counseled For Unhealthy Alcohol Use? No [email or web address] Information not available 07/05/2021 Do You Use Your Seat Belt Or Car Seat Routinely? Yes Information not available 07/05/2021 Do You Have Smoke And Carbon Monoxide Detectors In Your Home? Yes [email or web address] Information not available 07/05/2021 Do You Use Sunscreen Routinely? Yes [email or web address] Information not available 07/05/2021 Has Tobacco Cessation Counseling Been Provided? No [email or web address] Information not available 07/05/2021 Have You Used IV Drugs? No [email or web address] Information not available 07/05/2021 Do You Have Difficulty Walking Or Climbing Stairs? No [email or web address] Information not available 12/06/2021 Sex: Unknown Functional Status Question Answer Note LastModified by Organizat ion Details LastModified Time Do you use any illicit or recreational drugs? Yes [email or web address] Information not available 07/05/2021 Do you or have you ever used any other forms of tobacco or nicotine? Yes [email or web address] Information not available 07/05/2021 What is your level of alcohol consumption? None Information not available 03/31/2025 Do you or have you ever used smokeless tobacco? Never used smokeless tobacco [email or web address] Information not available 07/05/2021 Are you able to walk independently without assistance or assistive devices? YESWOREST qpopyefs41 Information not available 07/05/2021 Are you able to care for yourself independently? Yes Information not available 12/06/2021 Do you have difficulty dressing, bathing, grooming, or toileting? No [email or web address] Information not available 12/06/2021 Do you or have you ever used e-cigarettes or vape? Current user of electronic cigarettes Information not available 07/05/2021 What is your exercise level? Occasional [email or web address] Information not available 07/05/2021 Mental Status Question Answer Note LastModified by Organization D etails LastModified Time Do you feel stressed (tense, restless, nervous, or anxious, or unable to sleep at night)? [id number] Information not available 07/05/2021 Family History Relationship Description Onset Age of this Age Resolved Age Notes LastModified by Organization Details LastModified Time Father No current problems or disability [email or web address] Not available 05/2021 09:06:31 Mother No current problems or disability [email or web address] Not available 05/2021 09:06:31 Medical History Condition [...] ICD10 Code Diagnosis IMO Codes Diagnosis Note [id number] Shawn Bradley MD [employer] [address] [address] 08/18/2025 09:40:51 08/18/2025 10:15:47 Gestational diabetes mellitus 94743798 O24.414 Z3A.36 38965757 [id number] Anju Mcnamara CNM [employer] [address] [address] 08/18/2025 09:41:06 08/18/2025 11:24:04 Gestation period, 36 weeks 68296676 Z3A.36 1078334 cont pnv [id number] [facility] [address],[place] [address] 08/18/2025 09:41:16 08/18/2025 16:17:31 Gestational diabetes mellitus class A2 63827055 O24.414 38221231 [id number] Shawn Bradley MD [employer] [address],[place] [address] 08/25/2025 14:26:29 08/25/2025 15:14:02 Gestational diabetes mellitus 06335379 O24.414 08766108 [id number] [facility] [address],[place] [address] 08/25/2025 14:26:57 08/25/2025 15:53:52 Gestation period, 37 weeks 61925115 Z3A.37 2954625 continue vitamin [id number] [facility] [address],[place] [address] 08/25/2025 16:48:00 08/25/2025 17:20:42 Gestational diabetes mellitus 88437409 O24.419 50230642 [id number] Shawn Bradley MD [employer] [address],[place] [address] 09/13/2025 15:30:32 09/13/2025 20:43:16 Health Concerns Section Related Observation LastModified by Organization Detai ls LastModified Time None Recorded Concern Status LastModified by Organization Details LastModified Time None Recorded Payers Encounter Date Sequence Insurance Name Policy Number Policy Roberts Covered Member ID Roberts Member ID Guarantor Name 09/13/2025 1 [facility] (MEDICAID HMO) [id number] Yuni Mejia [id number] Yuni Mejia OBGyveronique Episode Ob Episode Information Episode Created Date Number of Fetuses Patient Bloodtype Patient rh Status Prepregnancy Weight lbs Domestic Partner Domestic Partner Phone Father Name Tank Builder Helper Status 03/02/20 25 1 B Positive 164 CLOSED Fetus Data First Name Last Name Admitted to NICU Weight (g) Sex Living Outcome Pediatric Complications Fetus ID Race Codes Race Delivery Type Gladis false 4025.62 9 F true Full Term 00842 Vaginal Delivery Problems Problem Notes SDH form completed 5GI consult Tachycardia Holter monitor 72 order- pt sent back on 03-27-25 Cardiology referral faxed per Dr Martínez office calling pt 04/21 to schedule consult scheduled 05/11 11:15AM Problem Name Start Date End Date Resolution Snomed Code Not e Uncomplicated moderate persistent asthma 03/02/2025 462749269 albuterol prn Abnormal placenta affecting management of mother 05/04/2025 26719479 MCI serial grow th us Iron deficiency anemia 05/25/2025 26916416 SS MFM tx [place] 200mg x1 HGB 10.6 Nausea and vomiting 03/02/2025 54975691 Anxiety 03/02/2025 63969431 sertralin e started 03/02/25 changed to prozac 10 on Gestational diabetes mellitus 07/08/2025 24724580 checking bs QID - ruled in GDM Referral faxed to [facility] 07/07 Frequent headache 05/03/2025 [id number] t [place] to [facility] 05/21, discharge 05/23 MF referral faxed 05/24 SS Neurology consult pending per KAJAL Pittman [facility] due to [facility] 05/[facility] 07/05/25 Level US & Consult (see [facility] consult zaysa recommendations ) regimen prn Imitrex 50mg for acute migraine, vitamin B2 (Riboflavin) 400mg, Coenzyme q10 300mg and magnesium oxide 200 to 600mg daily. minimize use of Excedrin or Tylenol to no more than 2-3 times a week. 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/2025 0380643 32wk growth us Jun Calculation Initial Jun [...] Weight in lbs Pre/Post Dialysis Refused Weight 158.116722249188 BP Diastolic BP Location Tested BP Systolic [...] Weight in lbs Pre/Post Dialysis Refused Weight 158.311807214548 BP Diastolic BP Location Tested BP Systolic [...] Weight in lbs Pre/Post Dialysis Refused Weight 162.803233887833 BP Diastolic BP Location Tested BP Systolic [...] Type Weight in lbs Pre/Post Dialysis Refused 168.823295609149 BP Diastolic BP Location Tested BP Systolic [...] Type Weight in lbs Pre/Post Dialysis Refused 169.633160642464 BP Diastolic BP Location Tested BP Systolic [...] Weight in lbs Pre/Post Dialysis Refused Weight 175.750575911487 BP Diastolic BP Location Tested BP Systolic [...] Weight in lbs Pre/Post Dialysis Refused Weight 182.869020829454 BP Diastolic BP Location Tested BP Systolic [...] Weight in lbs Pre/Post Dialysis Refused Weight 181.359868838457 BP Diastolic BP Location Tested BP Systolic BP Type 73 L arm 131 sitting Fetus Heart Rate Present Fetus Movement A Yes Comments viral URI testied neg at urg ent care, nausea resolved, efw 68%, +FM plan education and precautions f/u 2 weeks diagnosed GDM, plan home health caregiver, gave list reviewed protein vs carb Flowsheet Date 07/21/2025 Gibson Score Blood Edema Fundus Height Fundus Units Glucose Ketones Leukocytes Nitrite Labor Signs Protein Cervic Dilation Cervic Effacement Cervic Station Type Weight in lbs Pre/Post Dialysis Refused Weight 181.543693504109 BP Diastolic BP Location Tested BP Systolic BP Type 78 L arm 127 sitting Fetus Heart Rate Present A 150 Fetus Movement A Yes Comments rpt urine culture +FM review ed blood sugars, meets with home health caregiver today, precautions and education f/u 2 weeks [...] Weight in lbs Pre/Post Dialysis Refused Weight 181.090917565574 BP Diastolic BP Location Tested BP Systolic [...] Weight in lbs Pre/Post Dialysis Refused Weight 183.075188428717 BP Diastolic BP Location Tested BP Systolic [...] Type Weight in lbs Pre/Post Dialysis Refused 184.912030900610 BP Diastolic BP Location Tested BP Systolic [...] Type Weight in lbs Pre/Post Dialysis Refused 184.214287923825 BP Diastolic BP Location Tested BP Systolic [...] Type Weight in lbs Pre/Post Dialysis Refused 184.375479483047 BP Diastolic BP Location Tested BP Systolic [...] Weight in lbs Pre/Post Dialysis Refused Weight 184.794570339188 BP Diastolic BP Location Tested BP Systolic [...] Weight in lbs Pre/Post Dialysis Refused Weight 164.240913718243 BP Diastolic BP Location Tested BP Systolic [...]
--- OUTSIDE RECORDS SUMMARY | 2025-09-16 17:52 | XMS_ITS ---
Author Organization Unknown Address [address] [place] [address] [phone] Phone Care Team Providers Care Prospect Manager Name Role Phone SHAYNA CRESPO Attending Unavailable [...] CVX HPV9 01/05/2017 Completed 165 CVX Results URINALYSIS w/Microscopy/C&S if indicated - Collect Date/Time: 09/24/2023 11:29 [facility] ID: [id number] [address] [place], [place], [address] LOINC: 86916-2 Test Value Unit Reference Range Code Code System Flag UR SOURCE CLEAN CATCH 31417-0 LOINC COLOR YELLOW YELLOW 5778-6 LOINC CLARITY SL CLOUDY CLEAR 74428-1 LOINC SPEC GRAVITY 1.025 1.000-1.030 5811-5 LOINC PH 6.0 5.0 - 6.5 5803-2 LOINC LEUK EST NEGATIVE NEGATIVE 5799-2 LOINC NITRATE NEGATIVE NEGATIVE PROTEIN TRACE NEGATIVE 5804-0 LOINC GLUCOSE NEGATIVE NEGATIVE 75428-5 LOINC KETONES 1+ NEGATIVE 11192-3 LOINC A UROBILINOGEN 0.2 NEGATIVE 5818-0 LOINC BILIRUBIN NEGATIVE NEGATIVE 79251-7 LOINC BLOOD NEGATIVE NEGATIVE 06444-3 LOINC WBC 0-2 0 - 2 66460-6 LOINC RBC 0-2 0 - 2 67658-8 LOINC EPITHELIAL MODERATE RARE-FEW 60461-1 LOINC A BACTERIA 1+ NONE SEEN 59707-2 LOINC MUCUS 2+ NONE SEEN 8247-9 LOINC A YEAST NOT PRESENT NOT PRESENT 88098-2 LOINC CASTS NONE SEEN 92017-2 LOINC CRYSTALS NONE SEEN 98458-2 LOINC CULTURE? NO 8251-1 LOINC DIAGNOSIS N/A CBC W/ DIFF - Collect Date/T randall: 09/24/2023 10:23 [facility] ID: [id number] [address] [place], [place], [address] LOINC: 62822-7 Test Value Unit Reference Range Code Code System Flag WBC 8.5 10^3uL L=4.8 H=10.8 RBC 3.68 10^6uL L=4.20 H=5.40 L HEMOGLOBIN 10.3 g/dL L=12.0 H=16.0 718-7 LOINC L HEMATOCRIT 30.6 VOL% L=37.0 H=47.0 4544-3 LOINC L MCV 83.2 fL L=81.0 H=99.0 MCH 28.0 pg L=27.0 H=32.0 MCHC 33.7 g/dL L=32.0 H=36.0 PLATELETS 276 10^3uL L=100 H=400 11156-5 LOINC RDW 11.9 % L=11.7 H=15.5 %GRAN 71.4 % L=40.0 H=70.0 70386-3 LOINC H %LYMPH 19.1 % L=20.0 H=45.0 736-9 LOINC L %MONO 8.3 % L=2.0 H=10.0 83333-1 LOINC %EOS 0.6 % L=0.0 H=6.0 713-8 LOINC %BASO 0.1 % L=0.0 H=3.0 706-2 LOINC #NEUT 6.1 10^3uL L=1.9 H=7.6 44784-2 LOINC #LYMPH 1.6 10^3uL L=0.9 H=4.9 36120-7 LOINC #MONO 0.7 10^3uL L=0.1 H=0.9 67649-9 LOINC #EOS 0.1 10^3uL L=0.0 H=0.6 712-0 LOINC #BASO 0.01 10^3uL L=0.00 H=0.10 43193-7 LOINC #IM GRANS 0.0 10^3uL L=0.0 H=7.0 93107-2 LOINC %IM GRANS 0.5 % L=0.0 H=5.0 58272-3 LOINC %NRB 0.0 L=0.0 H=0.2 05193-3 LOINC #NRB 0.000 L=0.000 H=0.012 98943-1 LOINC MANUAL DIFF NOT INDICATED RBC MORPH NOT INDICATED COMPREHENSIVE METABOLIC PANE L - Collect Date/Time: 09/24/2023 10:23 [facility] ID: [id number] [place], [id number] LOINC: 63451-0 Test Value Unit Reference Range Code Code System Flag FASTING UNKNOWN BUN 9 mg/dL L=7 H=20 3094-0 LOINC CREATININE 0.50 mg/dL L=0.52 H=1.04 2160-0 LOINC L GLUCOSE 85 mg/dL L=74 H=106 2345-7 LOINC SODIUM 135 mmol/L L=132 H=144 2951-2 LOINC POTASSIUM 3.0 mmol/L L=3.5 H=5.1 2823-3 LOINC L CHLORIDE 104 mmol/L L=98 H=107 2075-0 LOINC CO2 26.0 mmol/L L=22.0 H=30.0 2028-9 LOINC ANION GAP 8 L=10 H=20 50215-5 LOINC L OSMOLALITY 278 mOs/kG L=280 H=296 04750-2 LOINC L BUN/CREAT 18.0 3097-3 LOINC CALCIUM 8.6 mg/dL L=8.3 H=10.5 24008-2 LOINC AST 23 U/L L=15 H=46 1920-8 LOINC ALT 22 U/L L=9 H=72 1742-6 LOINC ALKALINE PHOS 61 U/L L=38 H=126 6768-6 LOINC TOTAL BILI 0.3 mg/dL L=0.2 H=1.3 1975-2 LOINC ALBUMIN 3.9 G/dL L=3.5 H=5.0 1751-7 LOINC TOTAL PROTEIN 6.9 g/L L=6.3 H=8.2 2885-2 LOINC A/G RATIO 1.3 67518-2 LOINC AGE 23 57116-1 LOINC eGFR NON-AFR 161 ml/min eGFR AFR AMER 195 ml/min MAGNESIUM - Collect Date/Patricio e: 09/24/2023 10:23 [facility] ID: [id number] [address] [place], [place], [address] LOINC: 93652-9 Test Value Unit Reference Range Code Code System Flag MAGNESIUM 1.7 mg/dL L=1.6 H=2.3 14234-2 LOINC HIV 4th GEN Ab 1&2 p24 Ag in -house - Collect Date/Time: 09/24/2023 10:23 [facility] ID: [id number] [address] [place], [place], [id number] LOINC: 39812-8 Test Value Unit Reference Range Code Code System Flag HIV-1 Ab NEGATIVE NORMAL: NON REACTIVE/NE HIV-2 Ab NEGATIVE HIV-p24 Ag NEGATIVE SEND TO [facility]? NO REFLEX? NO 5778-6 LOINC Social History Type Status Start Date End Date Code Code Syst em Smoking History Never smoker (Never Smoked) 292075367 SNOMED CT Sex Female Assessment You had [...] 6002 SNOMED-CT UNSPECIFIED ABDOMINAL PAIN active 215 43970 SNOMED-CT Allergies and Adverse Reactions Allergy Substance Reaction Severity Start Date Concern Status Co de Code System AMOXICILLIN Active 723 RxNorm TERBUTALINE Active 54686 RxNorm Plan of Treatment Stress Test Treadmill 01/21/2025 Train Director Consult 04/27/2025 Encounters Encounter Diagnosis Start Date Code Code Sys tem Mild hyperemesis gravidarum 09/24/2023 SNOMED-CT Personal Care Team Section Performer Name Performer Role Active Date Inactive Da te KRAIG ESTRADA PCP - Primary care physician 2021-10 0-24 2024-09-12 KRAIG ESTRADA PCP - Primary care physician 1-10 2024-09-12 KRAIG ESTRADA PCP - Primary care physician 2023- 1-10 2024-09-12 KRAIG ESTRADA PCP - Primary care physician -16 2024-09-12 Hong Abdi PCP - Primary care physician 2024-09-12
--- OUTSIDE RECORDS SUMMARY | 2025-09-16 17:52 | XMS_ITS ---
Author Organization Unknown Address [id number] [place] [phone] Phone Care Team Providers Care In Home Nanny Name Role Phone MARK Fernandez Attending Unavailable SEAN Balderrama Primary Unavailable Immunization [...] URINALYSIS w/Microscopy/C&S if indicated - Collect Date/Time: 05/12/2024 22:50 [facility] ID: [id number] [place], [place], [id number] LOINC: 50616-9 Test Value Unit Reference Range Code Code System Flag UR SOURCE CLEAN CATCH 23912-6 LOINC COLOR YELLOW YELLOW 5778-6 LOINC CLARITY SL CLOUDY CLEAR 85160-0 LOINC SPEC GRAVITY 1.025 1.000-1.030 5811-5 LOINC PH 6.0 5.0 - 6.5 5803-2 LOINC LEUK EST NEGATIVE NEGATIVE 5799-2 LOINC NITRATE NEGATIVE NEGATIVE PROTEIN NEGATIVE NEGATIVE 5804-0 LOINC GLUCOSE NEGATIVE NEGATIVE 90718-1 LOINC KETONES NEGATIVE NEGATIVE 18440-8 LOINC UROBILINOGEN 0.2 NEGATIVE 5818-0 LOINC BILIRUBIN NEGATIVE NEGATIVE 12734-6 LOINC BLOOD NEGATIVE NEGATIVE 92199-2 LOINC WBC 2-5 0 - 2 42193-9 LOINC RBC 0-2 0 - 2 77392-2 LOINC EPITHELIAL MODERATE RARE-FEW 51325-0 LOINC A BACTERIA 1+ NONE SEEN 08786-0 LOINC MUCUS FEW NONE SEEN 8247-9 LOINC YEAST NOT PRESENT NOT PRESENT 92444-3 LOINC CASTS NONE SEEN 85997-0 LOINC CRYSTALS NONE SEEN 60725-7 LOINC CULTURE? NO 8251-1 LOINC DIAGNOSIS N/A MAGNESIUM - Collect Date/Patricio e: 05/12/2024 21:25 [facility] ID: [id number] [place], [place], [id number] LOINC: 28799-6 Test Value Unit Reference Range Code Code System Flag MAGNESIUM 1.8 mg/dL L=1.6 H=2.3 20263-0 LOINC CBC W/ DIFF - Collect Date/T randall: 05/12/2024 21:25 [facility] ID: [id number] [place], [place], [id number] LOINC: 78767-5 Test Value Unit Reference Range Code Code System Flag WBC 8.5 10^3uL L=4.8 H=10.8 RBC 4.72 10^6uL L=4.20 H=5.40 HEMOGLOBIN 12.2 g/dL L=12.0 H=16.0 718-7 LOINC HEMATOCRIT 39.0 VOL% L=37.0 H=47.0 4544-3 LOINC MCV 82.6 fL L=81.0 H=99.0 MCH 25.8 pg L=27.0 H=32.0 L MCHC 31.3 g/dL L=32.0 H=36.0 L PLATELETS 278 10^3uL L=100 H=400 06864-5 LOINC RDW 13.5 % L=11.7 H=15.5 %GRAN 47.6 % L=40.0 H=70.0 19280-5 LOINC %LYMPH 39.8 % L=20.0 H=45.0 736-9 LOINC %MONO 8.8 % L=2.0 H=10.0 95554-8 LOINC %EOS 3.3 % L=0.0 H=6.0 713-8 LOINC %BASO 0.4 % L=0.0 H=3.0 706-2 LOINC #NEUT 4.1 10^3uL L=1.9 H=7.6 60773-7 LOINC #LYMPH 3.4 10^3uL L=0.9 H=4.9 12516-9 LOINC #MONO 0.8 10^3uL L=0.1 H=0.9 10909-8 LOINC #EOS 0.3 10^3uL L=0.0 H=0.6 712-0 LOINC #BASO 0.03 10^3uL L=0.00 H=0.10 05306-6 LOINC #IM GRANS 0.0 10^3uL L=0.0 H=7.0 25456-2 LOINC %IM GRANS 0.1 % L=0.0 H=5.0 63686-3 LOINC %NRB 0.0 L=0.0 H=0.2 80851-7 LOINC #NRB 0.000 L=0.000 H=0.012 03531-2 LOINC MANUAL DIFF NOT INDICATED RBC MORPH NOT INDICATED COMPREHENSIVE METABOLIC PANE L - Collect Date/Time: 05/12/2024 21:25 [facility] ID: [id number] [place], [place], [id number] LOINC: 16446-4 Test Value Unit Reference Range Code Code System Flag FASTING UNKNOWN BUN 18 mg/dL L=7 H=20 3094-0 LOINC CREATININE 0.90 mg/dL L=0.52 H=1.04 2160-0 LOINC GLUCOSE 91 mg/dL L=74 H=106 2345-7 LOINC SODIUM 139 mmol/L L=132 H=144 2951-2 LOINC POTASSIUM 3.7 mmol/L L=3.5 H=5.1 2823-3 LOINC CHLORIDE 109 mmol/L L=98 H=107 2075-0 LOINC H CO2 26.0 mmol/L L=22.0 H=30.0 2028-9 LOINC ANION GAP 8 L=10 H=20 21282-1 LOINC L OSMOLALITY 289 mOs/kG L=280 H=296 90963-8 LOINC BUN/CREAT 20.0 3097-3 LOINC CALCIUM 9.0 mg/dL L=8.3 H=10.5 88076-1 LOINC AST 28 U/L L=15 H=46 1920-8 LOINC ALT 20 U/L L=9 H=72 1742-6 LOINC ALKALINE PHOS 107 U/L L=38 H=126 6768-6 LOINC TOTAL BILI 0.2 mg/dL L=0.2 H=1.3 1975-2 LOINC ALBUMIN 4.1 G/dL L=3.5 H=5.0 1751-7 LOINC TOTAL PROTEIN 7.1 g/L L=6.3 H=8.2 2885-2 LOINC A/G RATIO 1.4 19218-6 LOINC AGE 24 41768-3 LOINC eGFR NON-AFR 81 ml/min eGFR AFR AMER 98 ml/min TSH - Collect Date/Time: 21:25 [facility] ID: [id number] [place], [place], [id number] LOINC: 94261-8 Test Value Unit Reference Range Code Code System Flag TSH. 0.325 uIU/L L=0.470 H=4.680 03603-0 LOINC L Social History Type Status Start Date End Date Code Code Syst em Smoking History Never smoker (Never Smoked) 869893705 SNOMED CT Sex Female Assessment You had [...] 6002 SNOMED-CT UNSPECIFIED ABDOMINAL PAIN active 215 05814 SNOMED-CT Allergies and Adverse Reactions Allergy Substance Reaction Severity Start Date Concern Status Co de Code System AMOXICILLIN Active 723 RxNorm TERBUTALINE Active 72784 RxNorm Plan of Treatment Stress Test Treadmill 01/21/2025 Home Economics Extension Worker Consult 04/27/2025 Encounters Encounter Diagnosis Start Date Code Code Sys tem Unspecified pre-eclampsia, unspecified trimester 05/12 SNOMED-CT Personal Care Team Section Performer Name Performer Role Active Date Inactive Da te KRAIG ESTRADA PCP - Primary care physician 2021- 0-24 2024-09-12 KRAIG ESTRADA PCP - Primary care physician 2023-0 1-10 2024-09-12 KRAIG ESTRADA PCP - Primary care physician 0 -10 2024-09-12 KRAIG ESTRADA PCP - Primary care physician 2023-0 -16 2024-09-12 Hong Abdi PCP - Primary care physician 2024-09-12
--- OUTSIDE RECORDS SUMMARY | 2025-09-16 17:52 | XMS_ITS ---
Author Organization Unknown Address [address] [place] [phone] Phone Care Team Providers Care Tube Builder Airplane Name Role Phone MARK Fernandez Attending Unavailable [...] 149 CVX HPV9 01/05/2017 Completed 165 CVX Social History Type Status Start Date End Date Code Code Syst em Smoking History Never smoker (Never Smoked) 987030246 SNOMED CT Sex Female Assessment You had [...] 6002 SNOMED-CT UNSPECIFIED ABDOMINAL PAIN active 215 97564 SNOMED-CT Allergies and Adverse Reactions Allergy Substance Reaction Severity Start Date Concern Status Co de Code System AMOXICILLIN Active 723 RxNorm TERBUTALINE Active 58678 RxNorm Plan of Treatment Stress Test Treadmill 01/21/2025 Hand Sole Sewer Consult 04/27/2025 Encounters Encounter Diagnosis Start Date Code Code Sys tem Strain of muscle and tendon of back wall of thorax, initial encounter 08/17/2024 SNOMED-CT Personal Care Team Section Performer Name [...]
--- OUTSIDE RECORDS SUMMARY | 2025-09-16 17:52 | XMS_ITS | Continuity of Care Document ---
Author Organization [facility] Address [address] [place] [address] [place] [address] Care Team Providers Care Agricultural Chemist Name Role Phone VIVIAN ESTRADAISSA Primary Care Provider [phone] Assessment Encounter Date Assessment Date Assessment LastModified [...] 4 mg disintegrat ing tablet 2024 025 [facility] [address] [place], [address], 15:10:31 Patient TargetsNo targets recorded. Patient InstructionsNo instructions recorded. Reason for Referral None Reported. Results Created Date Observation Date Name Description Value Unit Range Abnormal Flag Note LastModifiedBy Organization Detail LastModifiedTime 03/06/2003/06/2025 [UNIT Y] ANEUP LOIDY NIPT fraction 5.7% normal Not Available Medina Mcbride[address], [place], [address], 03/06/2025 03:58:26 03/06/20 25 03/06/2025 [UNIT Y] ANEUP LOIDY NIPT sex chromosome aneuploidy NOT DETECT ED normal Not Available [facility] [address], [place], [address], 03/06/2025 03:58:26 03/06/20 25 03/06/2025 [UNIT Y] ANEUP LOIDY NIPT monosomy X LOW RISK <1 in 10,000 normal Not Available [facility] [address], [place], [address], 03/06/2025 03:58:26 03/06/20 25 03/06/2025 [UNIT Y] ANEUP LOIDY NIPT trisomy 13 LOW RISK <1 in 10,000 normal Not Available [facility] [address], [place], [address], 03/06/2025 03:58:26 03/06/20 25 03/06/2025 [UNIT Y] ANEUP LOIDY NIPT trisomy 18 LOW RISK <1 in 10,000 normal Not Available [facility] [address], [place], [address], 03/06/2025 03:58:26 03/06/20 25 03/06/2025 [UNIT Y] ANEUP LOIDY NIPT trisomy 21 LOW RISK <1 in 10,000 normal Not Available [facility] [address], [place], [address], 03/06/2025 03:58:26 03/06/20 25 03/06/2025 [UNIT Y] ANEUP LOIDY NIPT sex FEMALE normal Not Available [facility] [address], [place], [address], 03/06/2025 03:58:26 03/06/20 25 03/06/2025 [UNIT Y] ANEUP LOIDY NIPT gestation SINGLE TON normal Not Available [facility] [address], [place], [address], 03/06/2025 03:58:26 03/06/20 25 03/06/2025 [UNIT Y] ANEUP KIANA NIPT for detailed report, see pdf See PDF normal Not Available [facility] [address], [place], [address], 03/06/2025 03:58:26 03/02/20 25 03/02/2025 CULTU RE: URINE result report SEE RESULT S BELOW Test: Cultu re: Urine Speci men Sourc e: Urine - Clean Catch Speci men Type: Urine Speci men Date: 1455 Resul t Date: 2138 Resul t Statu s: Final resul t Abnor mal: No Resul ting Lab: [facility] [address] [facility] [address] Tel: CULTU RE ----- ----- ----- --- No growt h in 1 day (dete ction level of 10,00 0 colon ies / ml.) Not Available [facility] (Lab) [address] [facility], [place], [address], 03/03/2025 22:42:27 03/12/2003/12/2025 CULTU RE: URINE result report SEE RESULT S BELOW Test: Cultu re: Urine Speci men Sourc e: Urine - Clean Catch Speci men Type: Urine Speci men Date: 2024 1600 Resul t Date: 2024 0610 Resul t Statu s: Final resul t Abnor mal: No Resul ting Lab: [facility] [address] [facility] [address] Tel: CULTU RE ----- ----- ----- --- No growt h in 1 day (dete ction level of 10,00 0 colon ies / ml.) Not Available [facility] (Lab) [address] [facility], [place], [address], 03/14/2025 07:15:03 03/12/20 25 03/12/2025 urina lysis , dipst ick Leukocytes ++ Not Available [address], [place], [address], 03/12/2025 16:45:06 03/12/20 25 03/12/2025 urina lysis , dipst ick Protein + Not Available [place] [address], [place], [address], 03/12/2025 16:45:06 03/12/20 25 03/12/2025 urina lysis , dipst ick pH 5 Not Available [place] [address], [place], [address], 03/12/2025 16:45:06 03/12/20 25 03/12/2025 urina lysis , dipst ick Blood trace Not Available [place] [address], [place], [address], 03/12/2025 16:45:06 03/12/20 25 03/12/2025 urina lysis , dipst ick Specific [place] 1.015 Not Available [facility] [address], [place], [address], 03/12/2025 16:45:06 03/12/20 25 03/12/2025 urina lysis , dipst ick Ketone +++ Not Available [place] [address], [place], [address], 03/12/2025 16:45:06 03/31/20 25 03/31/2025 TSH, REFLE X FREE T4 TSH 0.42 uIU/m L 0.30-5 .33 Not Available [facility] (Lab) [address], [place], [address], 04/01/2025 03:05:12 03/31/20 25 03/31/2025 CULTU RE: URINE result report SEE RESULT S BELOW Test: Cultu re: Urine Speci men Sourc e: Urine Voide d Speci men Type: Urine Speci men Date: 1710 Resul t Date: 2256 Resul t Statu s: Final resul t Abnor mal: No Resul ting Lab: [facility] [address] [facility] [address] Tel: CULTU RE ----- ----- ----- --- Cultu re resul t (>=3 organ isms prese nt) indic ates possi ble conta minat ion. Repea t cultu re if sympt oms indic ate. Not Available [facility] (Lab) [address], [place], [address], 04/01/2025 23:59:19 03/31/20 25 03/31/2025 urina lysis , dipst ick Leukocytes +1 Not Available [facility] dom[address], [place], [address], 03/31/2025 09:23:13 03/31/20 25 03/31/2025 urina lysis , dipst ick Nitrite normal Not Available [place] [address], [place], [address], 03/31/2025 09:23:13 03/31/20 25 03/31/2025 urina lysis , dipst ick Urobilinogen normal Not Available [facility] david [address], [place], [address], 03/31/2025 09:23:13 03/31/20 25 03/31/2025 urina lysis , dipst ick Protein trace Not Available [place] [address], [place], [address], 03/31/2025 09:23:13 03/31/20 25 03/31/2025 urina lysis , dipst ick pH 5 Not Available [place] [address], [place], [address], 03/31/2025 09:23:13 03/31/20 25 03/31/2025 urina lysis , dipst ick Specific [place] 1.020 Not Available [facility] nita [address], [place], [address], 03/31/2025 09:23:13 03/31/20 25 03/31/2025 urina lysis , dipst ick Ketone normal Not Available [place] [address], [place], [address], 03/31/2025 09:23:13 03/31/20 25 03/31/2025 urina lysis , dipst ick Bilirubin normal Not Available [facility] anna [address], [place], [address], 03/31/2025 09:23:13 03/31/20 25 03/31/2025 urina lysis , dipst ick Glucose normal Not Available [place] [address], [place], [address], 03/31/2025 09:23:13 03/31/20 25 03/31/2025 urina lysis , dipst ick Appearance normal Not Available [facility] [address], [place], [address], 03/31/2025 09:23:13 03/31/20 25 03/31/2025 urina lysis , dipst ick Color normal Not Available [place] [address], [place], [address], 03/31/2025 09:23:13 04/01/20 25 04/01/2025 WOMEN 'S HEALT H SWAB PLUS, DENIS bacterial vaginosis (bv), tma Negati ve negati ve Not Available [facility] (Lab) [address], [place], [address], 04/02/2025 14:08:45 04/01/20 04/01/2025 [facility], DENIS mekhi species, tma Negati ve negati ve Not Available [facility] (Lab) [address] [place], [address], 04/02/2025 14:08:45 04/01/20 25 04/01/2025 [facility], DENIS mekhi glabrata, tma Negati ve negati ve Not Available [facility] (Lab) [address] [place], [address], 04/02/2025 14:08:45 04/01/20 25 04/01/2025 [facility] SW[facility], DENIS trichomonas vaginalis, tma Negati ve negati ve Not Available [facility] (Lab) [address] [place], [address], 04/02/2025 14:08:45 04/01/20 25 04/01/2025 [facility], DENIS chlamydia trachomatis, PCR Negati ve negati ve Not Available [facility] (Lab) [address] [place], [address], 04/02/2025 14:08:45 04/01/20 25 04/01/2025 [facility], DENIS neisseria [...] ded in this panel . Not Available [facility] (Lab) [address] , [place], [address], 04/02/2025 14:08:45 04/22/2004/22/2025 CULTU RE: URINE result report SEE RESULT S BELOW Test: Cultu re: Urine Speci men Sourc e: Urine Voide d Speci men Type: Urine Speci men Date: 2024 1314 Resul t Date: 2024 0322 Resul t Statu s: Final resul t Abnor mal: No Resul ting Lab: [facility] [address] [facility] [address] Tel: CULTU RE ----- ----- ----- --- No growt h in 1 day (dete ction level of 10,00 0 colon ies / ml.) Not Available [facility] (Lab) [address] , [place], [address], 04/24/2025 04:28:01 04/22/2004/22/2025 urina lysis , dipst ick Leukocytes + Not Available [facility] [address], [place], [address], 04/22/2025 10:01:51 04/22/2004/22/2025 urina lysis , dipst ick Protein + Not Available [place] [address], [place], [address], 04/22/2025 10:01:51 04/22/20 25 04/22/2025 urina lysis , dipst ick pH 8 Not Available [place] [address], [place], [address], 04/22/2025 10:01:51 04/22/20 25 04/22/2025 urina lysis , dipst ick Blood + Not Available [place] [address], [place], [address], 04/22/2025 10:01:51 04/22/20 25 04/22/2025 urina lysis , dipst ick Specific [place] 1.010 Not Available [facility] [address], [place], [address], 04/22/2025 10:01:51 04/22/20 25 04/22/2025 urina lysis , dipst ick Ketone + Not Available [place] [address], [place], [address], 04/22/2025 10:01:51 06/23/20 25 06/23/2025 HEMAT OCRIT (HCT) HCT 35.6 % (based on docume nted legal sex) 34.0-4 5.0 Not Available [facility] (Lab) [address] [facility], [place], [address], 06/24/2025 11:45:32 06/23/20 25 06/23/2025 HEMOG LOBIN (HGB) HGB 11.1 g/dL (based on docume nted legal sex) 11.6-1 5.4 low Not Available [facility] (Lab) [address] [facility], [place], [address], 06/24/2025 11:45:32 06/23/20 25 06/23/2025 GTT - GESTA ROLAND L SCREE N, ACOG OB glucose, 1 hour screen 180 mg/dL 70-135 high Not Available [facility] (Lab) [address] [place], [address], 06/24/2025 11:45:33 06/23/20 25 06/23/2025 HIV 1/2 ANTIG EN/AN TIBOD Y, REFLE X CONFI RMATI ON HIV antigen/anti body Nonrea ctive nonrea ctive HIV-1 antig en and HIV-1 /HIV- 2 antib odies were not detec greg. No labor atory evide nce of HIV infec tion. Not Available [facility] (Lab) [address] [facility], [place], [address], 06/24/2025 11:45:33 06/23/20 25 06/23/2025 RPR SCREE N, REFLE X TITER /CONF IRMAT ION RPR qualitative Nonrea ctive nonrea ctive Not Available [facility] (Lab) [address] [facility], [place], [address], 06/24/2025 11:45:34 03/02/20 25 03/02/2025 US, obste tric, nucha l trans lucen cy No observ ation record ed. [email or web address] [place] [address], [place], [address], 03/02/2025 13:35:30 03/02/20 25 03/02/2025 US, obste tric, nucha l trans lucen cy No observ ation record ed. [email or web address] [address], [place], [address], 03/03/2025 14:08:39 03/08/20 25 03/08/2025 US, obste tric, 1st trime ster No observ ation record ed. [email or web address] [place] [address], [place], [address], 03/08/2025 12:22:22 03/08/20 25 03/08/2025 US, obste tric, 1st trime ster No observ ation record ed. [email or web address] [address], [place], [address], 03/10/2025 15:03:13 04/01/20 25 03/24/2025 qamar r monit or No observ ation record ed. [address] [facility] [address], [place], [address], 04/08/2025 12:36:45 04/01/20 25 03/22/2025 qamar r monit or No observ ation record ed. [address] (Pulmonary) [address] [facility] [address], [place], [address], 04/06/2025 08:59:34 04/20/20 25 04/20/2025 US, obste tric, limit ed No observ ation record ed. [email or web address] [place] [address], [place], [address], 04/20/2025 17:39:30 04/20/20 25 04/20/2025 US, obste tric, follo w-up No observ ation record ed. [email or web address] [address], [place], [address], 04/23/2025 08:32:54 04/28/20 25 04/28/2025 US, obste tric, 2nd or 3rd trime ster No observ ation record ed. [email or web address] [place] [address], [place], [address], 04/28/2025 17:48:42 04/28/20 25 04/28/2025 US, obste tric, 2nd or 3rd trime ster No observ ation record ed. [email or web address] [address], [place], [address], 05/04/2025 22:16:11 05/07/20 25 05/07/2025 non-s tress test No observ ation record ed. [address] [facility] [address], [place], [address], 05/28/2025 13:33:54 05/21/20 25 05/21/2025 CT, head + brain , w/o contr ast No observ ation record ed. [email or web address] [facility] [address], [place], [address], 05/24/2025 13:48:57 05/28/20 25 05/28/2025 US, obste tric, follo w-up No observ ation record ed. [facility] [address], [place], [address], 05/28/2025 17:32:34 05/28/20 25 05/28/2025 US, obste tric, follo w-up No observ ation record ed. [address], [place], [address], 06/01/2025 15:13:13 06/08/20 25 06/07/2025 US, obste tric, follo w-up No observ ation record ed. [email or web address] [facility] [address] [facility], [place], [address], 06/15/2025 10:53:46 07/07/20 25 07/07/2025 US, obste tric, follo w-up No observ ation record ed. [email or web address] [place] [address], [place], [address], 07/07/2025 13:18:01 07/07/20 25 07/07/2025 US, obste tric, follo w-up No observ ation record ed. [email or web address] [address], [place], [address], 07/07/2025 11:29:37 08/04/20 25 08/04/2025 US, obste tric, follo w-up No observ ation record ed. [email or web address] [place] [address], [place], [address], 08/04/2025 15:08:50 08/04/2008/04/2025 US, obste tric, follo w-up No observ ation record ed. [email or web address] [address], [place], [address], 08/06/2025 10:41:50 08/11/2008/11/2025 non-s tress test No observ ation record ed. [place] [address], [place], [address], 08/11/2025 17:37:52 08/11/20 non-s tress test No observ ation record ed. [email or web address] [place] [address], [place], [address], 08/11/2025 17:38:11 08/15/2008/15/2025 non-s tress test No observ ation record ed. [address], [place], [address], 08/21/2025 10:18:57 08/15/2008/15/2025 US, obste tric, bioph ysica l profi le No observ ation record ed. [address] [facility], [place], [address], 08/17/2025 10:50:53 08/18/2008/18/2025 US, obste tric, bioph ysica l profi le + non-s tress test No observ ation record ed. [email or web address] [place] [address], [place], [address], 08/18/2025 10:21:39 08/18/20 25 08/18/2025 US, obste tric, bioph ysica l profi le + non-s tress test No observ ation record ed. [email or web address] [address], [place], [address], 08/18/2025 10:35:44 08/18/20 25 08/18/2025 non-s tress test No observ ation record ed. [address], [place], [address], 08/18/2025 17:34:03 08/18/20 non-s tress test No observ ation record ed. [address], [place], [address], 08/18/2025 16:06:09 08/25/2008/25/2025 US, obste tric, bioph ysica l profi le + non-s tress test No observ ation record ed. [email or web address] [place] [address], [place], [address], 08/25/2025 18:52:06 08/25/2008/25/2025 US, obste tric, follo w-up No observ ation record ed. joelle [place] [address], [place], [address], 08/25/2025 15:47:28 08/25/2008/25/2025 non-s tress test No observ ation record ed. [address], [place], [address], 08/25/2025 18:12:15 08/25/20 non-s tress test No observ ation record ed. [address], [place], [address], 08/25/2025 17:21:19 08/30/20 25 08/30/2025 non-s tress test No observ ation record ed. [address], [place], [address], 09/15/2025 15:26:49 09/01/20 25 09/01/2025 non-s tress test No observ ation record ed. [address] [address], [place], [address], 09/13/2025 11:32:22 09/01/20 25 09/01/2025 US, obste tric No observ ation record ed. [address], [address], 09/02/2025 15:56:01 09/01/20 25 09/01/2025 non-s tress test No observ ation record ed. [address] [address], [place], [address], 09/02/2025 14:32:38 09/16/20 25 09/16/2025 imagi ng/di agnos tic resul t No observ ation record ed. [address] [address], [place], [address], 09/16/2025 18:07:05 Result Notes None recorded. Problems Name Problem SNOMED Code Status Onset Date Resolution Date Notes Provider Name and Address Organization Details Recorded Time Hypereme sis 901044321 Completed [facility]erga n now [facility] 16:43:51 Anxiety in pregnanc y 7197590878 9109 Completed will continue to monitor Asia Luis ramos [facility] 2 16:43:51 Past pregnanc y history of gestatio nal diabetes mellitus 002275563 Completed Early 1 hr GTT @ 20wks 11/03 APPT Asia arias [facility] 2 16:43:51 Spinal muscular atrophy 0852491 Completed Carrier - Not in contact with FOB. Asia ramos [facility] 2 16:43:51 Anxiety 47526371 Completed prozac Karina ramos [facility] 4 11:00:46 Nausea 268490431 Completed d/c zofran pump 11/08 per pt request Karina ramos [facility] 4 11:00:46 Postpart um hemorrha ge 06438261 Completed 2017 with d&c Karina ramos, [facility] 4 11:00:46 Normal pregnanc y in multigra jessy 5031004275 06349 Completed 201907/05/2021 Encounte r for supervis ion of other normal pregnanc y, 3rd trimeste r;Record ed Elsewher e: No Locat ion: [facility] S ource: EHR Velvet Weaver yvrose: N Dennis ce ID: [id number] Gigi lable Time: 10:45:00 AM Karina Burroughs [facility] 10:15:27 Gestatio n period, 37 weeks 08101869 Completed 201907/05/2021 37 weeks gestatio n of pregnanc y;Record ed Elsewher e: No Locat ion: [facility] S ource: EHR Velvet Weaver yvrose: N Dennis ce ID: [id number] Gigi lable Time: 09:00:00 AM Karina ramos [facility] [address] 10:15:[address] Concept Completed 201907/05/2021 Matern care for abnlt fetl hrt rate or rhym, 3rd tri, unsp;Rec orded Elsewher e: No Locat ion: [facility] S ource: EHR Velvet Weaver yvrose: N Dennis ce ID: [id number] Gigi lable Time: 08:45:00 AM Karina Burroughs [facility] 1 10:15:29 Gestatio nal diabetes mellitus 16788170 Completed 201907/05/2021 Gestatio nal diabetes mellitus in pregnanc y, diet controll ed;Recor ded Elsewher e: No Locat ion: [facility] S ource: EHR Velvet Weaver yvrose: N Natalyati ce ID: [id number] Gigi lable Time: 11:45:00 AM Karina Burroughs rachel, [facility] 10:15:25 Gestatio n period, 38 weeks 12021715 Completed 201907/05/2021 38 weeks gestatio n of pregnanc y;Record ed Elsewher e: No Locat ion: [facility] S ource: EHR Velvet Weaver yvrose: N Natalyati ce ID: [id number] Gigi lable Time: 11:30:00 AM Karina ramos, [facility] 10:15:13 Amenorrh ea 30989371 Completed 202007/10/2021 Tammi Jones null, [facility] 13:08:35 Pregnanc y 93802216 Completed 202003/29/2022 Emma Dykes [facility], [facility] 5 12:28:48 Pregnanc y 77115401 Completed 202304/22/2024 Emma Dykes [facility], [facility] 5 12:28:48 Headache 51436501 Active 2023 Karina Burroughs [facility], [facility] 5 16:19:28 Pregnanc y 49862905 Completed 202309/14/2025 Emma Dykes [facility], [facility] 5 12:28:48 Uncompli cated moderate persiste nt asthma 069838410 Completed 2024 julio Bradley MD [address], [place], [address], [facility] 5 13:08:36 Anxiety 14045503 Completed 2024 sertrali ne started 03/02/25 changed to prozac 10 on Shawn Bradley MD [address], [place], [address], [facility] 5 17:05:48 Nausea and vomiting 99327462 Completed 2024 Shawn Bradley MD [address], [place], [address], [facility] 13:20:27 Placenta circumva llata 7348485 Completed 2024 32wk growth Ryann ramos, [facility] 5 09:44:35 Frequent headache 418577275 Completed 2024 transpor t to [facility] 05/21, discharg e 05/23 MFM referral faxed 05/24 SS Neurolog y consult pending per KAJAL Pittman [facility]- Neuro [facility] unable to [...] than 2-3 times a week. Ryann ramos, [facility] 5 10:55:26 Abnormal placenta affectin g manageme nt of mother 68262552 Completed 2024 [facility] serial growth Ryann ramos, [facility] 5 10:46:25 Iron deficien cy anemia 13585240 Completed 2024 [facility] tx venofer 200mg x1 HGB 10.6 [facility] 15:21:25 Gestatio nal diabetes mellitus 96217389 Completed 2024 checking bs QID - ruled in GDM [facility]erral [facility] to [facility] 07[facility]07 [facility] 14:36:52 Notes:Order faxed to [facility] access 08/10 for PICC line, and home health already caring for ptHilda Vladimir RN at [phone] Problem Notes None recorded. Procedures Surgical History Date Name Laterality Status Provider Name and Address Organization Details Recorded Time 025 SALPINGECTOMY, LAPAROSCOPIC (SURG) completed Not Available [facility] 09/06/2025 11:19:17 025 Date of Last Pap Smear completed Karina Burroughs [facility] 01/28/2025 11:19:42 024 Nexplanon Removal completed Shawn Bradley MD [address], [place], [address], [facility] 08/05/2024 15:09:58 024 Control Implant Insertion completed Anju Mcnamara CNM [address], [place], [address], [facility] 05/08/2024 17:59:34 024 cholecystectomy completed Karinasofia Burroughs [facility] 03/31/2025 09:18:57 018 Dilation and Curettage completed Karina Burroughs [facility] 07/05/2021 10:17:50 Imaging Results None recorded. Procedure Notes None recorded. Medical Equipment None Reported. Allergies Allergen ID Allergen Name Allergen Category Reaction Reaction Severity Criticality Documentation Date Start Date Code Code System Note Provider Name and Address Organization Details Recorded Time 64113 terbutali ne medicatio n anaphylax is Not available Not available 01/27/20252021 41893 RxNorm Karina Burroughs [facility] 16:19:27 76050 amoxicill in medicatio n Not available Not available Not available 09/10/2025 723 RxNorm Not Available gene - External Data Service - prod 16:39:37 97355 terbinafi ne medicatio n anaphylax is Not available [facility] 09/10/20252024 76392 RxNorm Not Available gene - External Data [...] Prescrib ed Elsewher e: Yes Loca tion: [facility] odify By: [email or web address] Encounte r DateTime [...] n (supplie d by office) insert lot [id number] Exp 01/2026 Not Available Not Available Not Available 28 mg iron-800 mcg tablet 07/05 completed Prescrib ed Elsewher e: Yes Loca tion: Jaelyn castillo [facility] M odify By: [email or web address] Encounte r DateTime : 01/14/20 10:45:00 AM Not Available Not Available Not Available lidocaine 5 % topical ointment APPLY OINTMENT EXTERNAL LY TO RIBS THREE TIMES DAILY NEEDED 01/14 completed Not Available Not Available Not Available 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 11:02:12 Social History Question Answer Notes LastModified by Organizat ion Details LastModified Time Tobacco Smoking Status [facility] 07/05/2021 09:06:21 If You Are , What Was Your Level Of Alcohol Consumption Prior To ? Occasional [email or web address] Information not available 03/31/2025 Are You Blind Or Do You Have Difficulty Seeing? No [email or web address] Information not available 07/05/2021 What Is Your Level Of Caffeine Consumption? Heavy [email or web address] Information not available 07/05/2021 In The 14 Days Before Symptom Onset, Have You Had Close Contact With A Laboratory-confir med COVID-19 While That Case Was Ill? No [email or web address] Information not available 07/05/2021 In The 14 Days Before Symptom Onset, Have You Had Close Contact With A Person Who Is Under Investigation For COVID-19 While That Person Was Ill? No [email or web address] Information not available 07/05/2021 Have You Been To An Area Known To Be High Risk For COVID-19? No [email or web address] Information not available 07/05/2021 Are You Deaf Or Do You Have Serious Difficulty Hearing? No [email or web address] Information not available 07/05/2021 What Type Of Diet Are You Following? REGULAR [email or web address] Information not available 07/05/2021 Which Illicit Or Recreational Drugs Have You Used? Marijuana [email or web address] Information not available 07/05/2021 Have You Ever Been Counseled For Unhealthy Alcohol Use? No [email or web address] Information not available 07/05/2021 Do You Use Your Seat Belt Or Car Seat Routinely? Yes [email or web address] Information not available 07/05/2021 Do You Have Smoke And Carbon Monoxide Detectors In Your Home? Yes [email or web address] Information not available 07/05/2021 Do You Use Sunscreen Routinely? Yes Information not available 07/05/2021 Has Tobacco Cessation Counseling Been Provided? No [email or web address] Information not available 07/05/2021 Have You Used IV Drugs? No [email or web address] Information not available 07/05/2021 Do You Have Difficulty Walking Or Climbing Stairs? No [email or web address] Information not available 12/06/2021 Sex: Unknown Functional Status Question Answer Note LastModified by Organizat ion Details LastModified Time Do you use any illicit or recreational drugs? Yes [email or web address] Information not available 07/05/2021 Do you or have you ever used any other forms of tobacco or nicotine? Yes [email or web address] Information not available 07/05/2021 What is your level of alcohol consumption? None Information not available 03/31/2025 Do you or have you ever used smokeless tobacco? Never used smokeless tobacco [email or web address] Information not available 07/05/2021 Are you able to walk independently without assistance or assistive devices? YESWOREST [email or web address] Information not available 07/05/2021 Are you able to care for yourself independently? Yes [email or web address] Information not available 12/06/2021 Do you have difficulty dressing, bathing, grooming, or toileting? No [email or web address] Information not available 12/06/2021 Do you or have you ever used e-cigarettes or vape? Current user of electronic cigarettes [email or web address] Information not available 07/05/2021 What is your exercise level? Occasional iaibpysn16 Information not available 07/05/2021 Mental Status Question Answer Note LastModified by Organization D etails LastModified Time Do you feel stressed (tense, restless, nervous, or anxious, or unable to sleep at night)? MV55076-8 [email or web address] Information not available 07/05/2021 Family History Relationship Description Onset Age of this Age Resolved Age Notes LastModified by Organization Details LastModified Time Father No current problems or disability [email or web address] Not available 05/2021 09:06:31 Mother No current problems or disability [email or web address] Not available 05/2021 09:06:31 Medical History Condition [...] ICD10 Code Diagnosis IMO Codes Diagnosis Note [id number] Shawn Bradley MD [place] [address],[place] [address] 06/23/2025 13:43:13 06/25/2025 17:52:18 [id number] Anju Mcnamara [facility] [address],[place] [address] 06/23/2025 13:43:28 06/23/2025 15:58:03 Heartburn 42648292 R12 19687 Gestation period, 28 weeks 44024997 Z3A.28 1699750 [id number] Shawn Bradley MD [place] [address] [place] [address] 07/07/2025 10:14:22 07/07/2025 11:00:23 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 Z3A.30 7630395 [id number] [facility] [address],[place] [address] 07/07/2025 10:14:33 07/07/2025 11:38:54 Gestation period, 30 weeks 18218137 Z3A.30 1302909 cont pnv Nausea 080611388 R11.0 17960 Gestationa l diabetes mellitus 57711317 O24.419 27309656 Health Concerns Section Related Observation LastModified by Organization Detai ls LastModified Time None Recorded Concern Status LastModified by Organization Details LastModified Time None Recorded Payers Encounter Date Sequence Insurance Name Policy Number Policy Roberts Covered Member ID Roberts Member ID Guarantor Name 07/07/2025 1 [facility] (MEDICAID HMO) [id number] Yuni Mejia [id number] Yuni Mejia Notes Date Note Type Note Provider Name and Address Organization Details Recorded Time 07/07/2025 text/html Generic HPI TemplateReported by Patient Anju Mcnamara, KRISTEN [address], [place], [address], [facility] 07/07/2025 11:37:13 OBGyn Episode Ob Episode Information Episode Created Date Number of Fetuses Patient Bloodtype Patient rh Status Prepregnancy Weight lbs Domestic Partner Domestic Partner Phone Father Name Cartography Supervisor Status 03/02/20 25 1 B Positive 164 CLOSED Fetus Data First Name Last Name Admitted to NICU Weight (g) Sex Living Outcome Pediatric Complications Fetus ID Race Codes Race Delivery Type Ziah false 4025.62 9 F true Full Term 92790 Vaginal Delivery Problems Problem Notes SDH form completed 5GI consult Tachycardia Holter monitor 72 order- pt sent back on 03-27-25 Cardiology referral faxed per Dr Martínez office calling pt 04/21 to schedule consult scheduled 05/11 11:15AM Problem Name Start Date End Date Resolution Snomed Code Not e Uncomplicated moderate persistent asthma 03/02/2025 387165037 albuterol prn Abnormal placenta affecting management of mother 05/04/2025 83577736 [facility]CI serial grow th us Iron deficiency anemia 05/25/2025 89364326 [facility] tx [place] 200mg x1 HGB 10.6 Nausea and vomiting 03/02/2025 86476017 Anxiety 03/02/2025 22313266 sertralin e started 03/02/25 changed to prozac 10 on Gestational diabetes mellitus 07/08/2025 57660037 checking bs QID - ruled in GDM Referral faxed to [facility] 07/07 Frequent headache 05/03/2025 [id number] [place] to [facility] 05/21, discharge 05/23 MFM referral faxed 05/24 SS Neurology consult pending per KAJAL Pittman [facility]- Neuro [facility] unable to see pt due to insurance 05/25[facility] 07/05/25 Level US & Consult (see MF consult zayas recommendations ) regimen prn Imitrex 50mg for acute migraine, vitamin B2 (Riboflavin) 400mg, Coenzyme q10 300mg and magnesium oxide 200 to 600mg daily. minimize use of Excedrin or Tylenol to no more than 2-3 times a week. 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 went to ed exam done cultures and rx sent, ?FM, await hospital monitor results rfilled zofran, precautions and education [...] Type Weight in lbs Pre/Post Dialysis Refused 168.434733896508 BP Diastolic BP Location Tested BP Systolic [...] Type Weight in lbs Pre/Post Dialysis Refused 169.029630386265 BP Diastolic BP Location Tested BP Systolic [...] Weight in lbs Pre/Post Dialysis Refused Weight 175.921785866264 BP Diastolic BP Location Tested BP Systolic [...] Weight in lbs Pre/Post Dialysis Refused Weight 182.756295172659 BP Diastolic BP Location Tested BP Systolic [...] Weight in lbs Pre/Post Dialysis Refused Weight 181.111267367253 BP Diastolic BP Location Tested BP Systolic BP Type 73 L arm 131 sitting Fetus Heart Rate Present Fetus Movement A Yes Comments viral URI testied neg at urg ent care, nausea resolved, efw 68%, +FM plan education and precautions f/u 2 weeks diagnosed GDM, plan circuit walker, gave list reviewed protein vs carb Flowsheet Date 07/21/2025 Gibson Score Blood Edema Fundus Height Fundus Units Glucose Ketones Leukocytes Nitrite Labor Signs Protein Cervic Dilation Cervic Effacement Cervic Station Type Weight in lbs Pre/Post Dialysis Refused Weight 181.550349536906 BP Diastolic BP Location Tested BP Systolic BP Type 78 L arm 127 sitting Fetus Heart Rate Present A 150 Fetus Movement A Yes Comments rpt urine culture +FM review ed blood sugars, meets with circuit walker today, precautions and education f/u 2 weeks [...] Weight in lbs Pre/Post Dialysis Refused Weight 181.399171731214 BP Diastolic BP Location Tested BP Systolic [...] Weight in lbs Pre/Post Dialysis Refused Weight 183.104746041445 BP Diastolic BP Location Tested BP Systolic [...] Type Weight in lbs Pre/Post Dialysis Refused 184.318423413625 BP Diastolic BP Location Tested BP Systolic [...] Type Weight in lbs Pre/Post Dialysis Refused 184.028851165154 BP Diastolic BP Location Tested BP Systolic [...] Type Weight in lbs Pre/Post Dialysis Refused 184.656425650814 BP Diastolic BP Location Tested BP Systolic [...] Weight in lbs Pre/Post Dialysis Refused Weight 184.285800332900 BP Diastolic BP Location Tested BP Systolic [...] Weight in lbs Pre/Post Dialysis Refused Weight 164.790468318985 BP Diastolic BP Location Tested BP Systolic [...]
--- OUTSIDE RECORDS SUMMARY | 2025-09-16 17:53 | XMS_ITS | Clinical Summary ---
Author Organization [employer] [facility] Address [address] 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 This disclosure is being madepursuant to the Care Everywhere program and may not contain all information available regarding this patient. Last updated 18.Tindie Allergies Active Allergy Reactions Criticality Noted Date [...] Department Care Team Description 08/30/2025 Patient Outreach [facility] EVALUATION UNIT [address] [place] [address]. [address] [place] [address] Anju Flanagan RN Care Management Other (Follow up for SDOH needs. Pt was seen once at [facility] on 06/07/25. Pt has no other follow up appointment at this location. She is receiving care in [place]. Will close this referral. ) 07/19/2025 Orders Only [facility]ATION [facility] [address] [place] [address]. [address] [place] [address] Karri Bledsoe MD Needs assistance with community resources 07/19/2025 Patient Outreach [facility] UN[facility] [address] [place] [address]. [address] [place] [address] Drea Romano RN Care Management Other from Last 3 Months Social History Tobacco Use Types Packs/Day Years Used Date Smoking Tobacco: Never Assessed Overall Financial Resource Strain (CARDIA) Answe r Date Recorded How hard is it for you to pa y for the very basics like food, housing, medical care, and heating? Not hard at all 06/07/2025 [facility] Occupat ional Health - Occupational Stress [...] things needed for daily living? No 06/07/2025 [place] Depression Scale Answer Date Recorded [place] Depression Scale Total 14 06/07/2025 The thought [...] any time in the past 12 m [facility], were you homeless or living in a senior living (including now)? 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 Gender Identity Not on file Sexual Orientation [...] CURRENT 06/12/2025 06/21/2012 COVID-19 VACCINE (1 - 2024-2 6 season) 2025 INFLUENZA VACCINE (#1) 2025 4, [...] over 60 yrs (No Doses Required) Completed Insurance [facility] SELF PAY NO INSURANCE Member Subscriber Plan / Payer (Ef fective for All Dates) Name:Librado Mejia Member ID:Not on file Relation to Subscriber:Not on file Name:LIBRADO MEJIA Subscriber ID:Not on file (Home) Address: [address] [place] [address] Payer ID:Not on file Group ID:Not on file Type:Self Pay Address: [place], [place] Advance Directives * Full Code (Latest Code Status on File) Date Activated Date Inactivated Comments 05/21/2025 3:16 PM 05/23/2025 3:20 PM
--- OUTSIDE RECORDS SUMMARY | 2025-09-16 17:53 | XMS_ITS ---
Author Organization Unknown Address [id number] [place] [phone] Phone Care Team Providers Care Care Team Assistant Name Role Phone SHAYNA CRESPO Attending Unavailable [...] URINALYSIS w/Microscopy/C&S if indicated - Collect Date/Time: 03/25/2024 01:05 [facility] ID: [id number] [address] [place] [address], [phone] LOINC: 70683-8 Test Value Unit Reference Range Code Code System Flag UR SOURCE CLEAN CATCH 60966-9 LOINC COLOR YELLOW YELLOW 5778-6 LOINC CLARITY SL CLOUDY CLEAR 93645-9 LOINC SPEC GRAVITY >=1.030 1.000-1.030 5811-5 LOINC A PH 5.5 5.0 - 6.5 5803-2 LOINC LEUK EST NEGATIVE NEGATIVE 5799-2 LOINC NITRATE NEGATIVE NEGATIVE PROTEIN NEGATIVE NEGATIVE 5804-0 LOINC GLUCOSE 3+ NEGATIVE 32267-2 LOINC KETONES TRACE NEGATIVE 63287-5 LOINC A UROBILINOGEN 0.2 NEGATIVE 5818-0 LOINC BILIRUBIN NEGATIVE NEGATIVE 09655-4 LOINC BLOOD NEGATIVE NEGATIVE 35705-3 LOINC WBC 2-5 0 - 2 13321-4 LOINC RBC 0-2 0 - 2 25774-3 LOINC EPITHELIAL MODERATE RARE-FEW 13407-7 LOINC A BACTERIA 1+ NONE SEEN 99754-2 LOINC MUCUS MODERATE NONE SEEN 8247-9 LOINC A YEAST NOT PRESENT NOT PRESENT 99542-3 LOINC CASTS NONE SEEN 20069-2 LOINC CRYSTALS NONE SEEN 25119-1 LOINC CULTURE? NO 8251-1 LOINC DIAGNOSIS N/A CBC W/ DIFF - Collect Date/T randall: 03/25/2024 00:13 [facility] ID: [id number] [address] [place] [address], [id number] LOINC: 26120-0 Test Value Unit Reference Range Code Code System Flag WBC 13.6 10^3uL L=4.8 H=10.8 H RBC 3.78 10^6uL L=4.20 H=5.40 L HEMOGLOBIN 10.1 g/dL L=12.0 H=16.0 718-7 LOINC L HEMATOCRIT 32.3 VOL% L=37.0 H=47.0 4544-3 LOINC L MCV 85.4 fL L=81.0 H=99.0 MCH 26.7 pg L=27.0 H=32.0 L MCHC 31.3 g/dL L=32.0 H=36.0 L PLATELETS 309 10^3uL L=100 H=400 54954-1 LOINC RDW 13.5 % L=11.7 H=15.5 %GRAN 63.2 % L=40.0 H=70.0 32940-0 LOINC %LYMPH 20.2 % L=20.0 H=45.0 736-9 LOINC %MONO 12.1 % L=2.0 H=10.0 38753-8 LOINC H %EOS 2.0 % L=0.0 H=6.0 713-8 LOINC %BASO 0.2 % L=0.0 H=3.0 706-2 LOINC #NEUT 8.6 10^3uL L=1.9 H=7.6 92331-0 LOINC H #LYMPH 2.8 10^3uL L=0.9 H=4.9 16835-0 LOINC #MONO 1.6 10^3uL L=0.1 H=0.9 73515-8 LOINC H #EOS 0.3 10^3uL L=0.0 H=0.6 712-0 LOINC #BASO 0.03 10^3uL L=0.00 H=0.10 98786-6 LOINC #IM GRANS 0.3 10^3uL L=0.0 H=7.0 04817-2 LOINC %IM GRANS 2.3 % L=0.0 H=5.0 41512-8 LOINC %NRB 0.0 L=0.0 H=0.2 13044-9 LOINC #NRB 0.000 L=0.000 H=0.012 05316-8 LOINC MANUAL DIFF NOT INDICATED RBC MORPH NOT INDICATED COMPREHENSIVE METABOLIC PANE L - Collect Date/Time: 03/25/2024 00:13 [facility] ID: [id number] [address] [place] [address], [phone] LOINC: 55457-0 Test Value Unit Reference Range Code Code System Flag FASTING UNKNOWN BUN 10 mg/dL L=7 H=20 3094-0 LOINC CREATININE 0.50 mg/dL L=0.52 H=1.04 2160-0 LOINC L GLUCOSE 169 mg/dL L=74 H=106 2345-7 LOINC H SODIUM 134 mmol/L L=132 H=144 2951-2 LOINC POTASSIUM 3.6 mmol/L L=3.5 H=5.1 2823-3 LOINC CHLORIDE 106 mmol/L L=98 H=107 2075-0 LOINC CO2 21.0 mmol/L L=22.0 H=30.0 2028-9 LOINC L ANION GAP 11 L=10 H=20 77536-4 LOINC OSMOLALITY 281 mOs/kG L=280 H=296 39006-1 LOINC BUN/CREAT 20.0 3097-3 LOINC CALCIUM 8.9 mg/dL L=8.3 H=10.5 06969-1 LOINC AST 31 U/L L=15 H=46 1920-8 LOINC ALT 25 U/L L=9 H=72 1742-6 LOINC ALKALINE PHOS 178 U/L L=38 H=126 6768-6 LOINC H TOTAL BILI 0.2 mg/dL L=0.2 H=1.3 1975-2 LOINC ALBUMIN 3.2 G/dL L=3.5 H=5.0 1751-7 LOINC L TOTAL PROTEIN 6.5 g/L L=6.3 H=8.2 2885-2 LOINC A/G RATIO 1.0 88688-8 LOINC AGE 24 62617-7 LOINC eGFR NON-AFR 160 ml/min eGFR AFR AMER 194 ml/min TROPONIN LEVEL - Collect Neil e/Time: 03/25/2024 00:13 [facility] ID: [id number] [address] [place], [place], [phone] LOINC: 18824-9 Test Value Unit Reference Range Code Code System Flag TROPONIN < 0.012 ng/mL L=0.000 H=0.033 28188-6 LOINC PROTIME - Collect Date/Time: 03/25/2024 00:13 [facility] ID: [id number] [address] [place] [address], [id number] LOINC: 74590-0 Test Value Unit Reference Range Code Code System Flag PT 9.6 Sec L=9.7 H=11.7 42564-4 LOINC L INR 0.9 Sec L=0.9 H=1.1 26872-2 LOINC PTT - Collect Date/Time: 00:13 [facility] ID: [id number] [address] [place] [address], [id number] LOINC: 98450-7 Test Value Unit Reference Range Code Code System Flag PTT 26.3 Sec L=23.0 H=31.2 Social History Type Status Start Date End Date Code Code Syst em Smoking History Never smoker (Never Smoked) 722080251 SNOMED CT Sex Female Assessment You had [...] 6002 SNOMED-CT UNSPECIFIED ABDOMINAL PAIN active 215 68917 SNOMED-CT Allergies and Adverse Reactions Allergy Substance Reaction Severity Start Date Concern Status Co de Code System AMOXICILLIN Active 723 RxNorm TERBUTALINE Active 77873 RxNorm Plan of Treatment Stress Test Treadmill 01/21/2025 Slab Lifting Supervisor Consult 04/27/2025 Encounters Encounter Diagnosis Start Date Code Code Sys tem Other specified diseases and conditions complicating 03/24/2024 SNOMED-CT Personal Care Team Section Performer Name Performer Role Active Date Inactive KRAIG Noriega W PCP - Primary care physician 2021- 0-24 2024-09-12 KRAIG ESTRADA PCP - Primary care physician 2023-0 1-10 2024-09-12 KRAIG ESTRADA PCP - Primary care physician 2023-0 1-10 2024-09-12 KRAIG ESTRADA PCP - Primary care physician 2023-0 7-16 2024-09-12 Hong Abdi PCP - Primary care physician 2024-09-12
--- OUTSIDE RECORDS SUMMARY | 2025-09-16 17:53 | XMS_ITS | Continuity of Care Document ---
Author Organization [facility], [facility] Address [address] [place] [address] [place] [address] Care Team Providers Care Draw Operator Name Role Phone CARLOS ESTRADA Primary Care Provider [phone] Assessment No assessment recorded. Plan of Treatment Reminders Order Date Submit Date Provider Last Modified By Organization Details Last Modified Time Details Appointments None record ed. Lab None record ed. Referral None record ed. Procedures None record ed. Surgeries None record ed. Imaging US, obstet sandra, follow -up 025 07/07/20 25 [email or web address] [address], [address], [place], [address], 16:21:32 Medication Orders None record ed. Patient TargetsNo targets recorded. Patient InstructionsNo instructions recorded. Reason for Referral None Reported. Results Created Date Observation Date Name Description Value Unit Range Abnormal Flag Note LastModifiedBy Organization Detail LastModifiedTime 03/06/2003/06/2025 [UNIT Y] ANEUP LOIDY NIPT fraction 5.7% normal Not Available [facility] [address], [place], [address], 03/06/2025 03:58:26 03/06/20 25 03/06/2025 [UNIT Y] ANEUP LOIDY NIPT sex chromosome aneuploidy NOT DETECT ED normal Not Available [facility] [address], [place], [address], 03/06/2025 03:58:26 03/06/20 25 03/06/2025 [UNIT Y] ANEUP LOIDY NIPT monosomy X LOW RISK <1 in 10,000 normal Not Available [facility] [address], [place], [address], 03/06/2025 03:58:26 03/06/20 25 03/06/2025 [UNIT Y] ANEUP LOIDY NIPT trisomy 13 LOW RISK <1 in 10,000 normal Not Available [facility] [address], [place], [address], 03/06/2025 03:58:26 03/06/20 25 03/06/2025 [UNIT Y] ANEUP LOIDY NIPT trisomy 18 LOW RISK <1 in 10,000 normal Not Available [facility] [address], [place], [address], 03/06/2025 03:58:26 03/06/20 25 03/06/2025 [UNIT Y] ANEUP LOIDY NIPT trisomy 21 LOW RISK <1 in 10,000 normal Not Available [facility] [address], [place], [address], 03/06/2025 03:58:26 03/06/20 25 03/06/2025 [UNIT Y] ANEUP LOIDY NIPT sex FEMALE normal Not Available [facility] [address], [place], [address], 03/06/2025 03:58:26 03/06/20 25 03/06/2025 [UNIT Y] ANEUP LOIDY NIPT gestation SINGLE TON normal Not Available [facility] [address], [place], [address], 03/06/2025 03:58:26 03/06/20 25 03/06/2025 [UNIT Y] ANEUP LOIDY NIPT for detailed report, see pdf See PDF normal Not Available [facility] [address], [place], [address], 03/06/2025 03:58:26 03/02/2003/02/2025 CULTU RE: URINE result report SEE RESULT S BELOW Test: Cultu re: Urine Speci men Sourc e: Urine - Clean Catch Speci men Type: Urine Speci men Date: 025 1455 Resul t Date: 025 2138 Resul t Statu s: Final resul t Abnor mal: No Resul ting Lab: [facility] [address] [facility] [address] Tel: CULTU RE ----- ----- ----- --- No growt h in 1 day (dete ction level of 10,00 0 colon ies / ml.) Not Available [facility] (Lab) [address] [facility], [place], [address], 03/03/2025 22:42:27 03/12/2003/12/2025 CULTU RE: URINE result report SEE RESULT S BELOW Test: Cultu re: Urine Speci men Sourc e: Urine - Clean Catch Speci men Type: Urine Speci men Date: 2024 1600 Resul t Date: 2024 0610 Resul t Statu s: Final resul t Abnor mal: No Resul ting Lab: [facility] [address] [facility] [address] Tel: CULTU RE ----- ----- ----- --- No growt h in 1 day (dete ction level of 10,00 0 colon ies / ml.) Not Available [facility] (Lab) [address] [facility], [place], [address], 03/14/2025 07:15:03 03/12/2003/12/2025 urina lysis , dipst ick Leukocytes ++ Not Available [address], [place], [address], 03/12/2025 16:45:06 03/12/2003/12/2025 urina lysis , dipst ick Protein + Not Available [address], [place], [address], 03/12/2025 16:45:06 03/12/20 25 03/12/2025 urina lysis , dipst ick pH 5 Not Available [address], [place], [address], 03/12/2025 16:45:06 03/12/20 25 03/12/2025 urina lysis , dipst ick Blood trace Not Available [address], [place], [address], 03/12/2025 16:45:06 03/12/20 25 03/12/2025 urina lysis , dipst ick Specific Bryant 1.015 Not Available [facility] [address], [place], [address], 03/12/2025 16:45:06 03/12/20 25 03/12/2025 urina lysis , dipst ick Ketone +++ Not Available [address], [place], [address], 03/12/2025 16:45:06 03/31/20 25 03/31/2025 TSH, REFLE X FREE T4 TSH 0.42 uIU/m L 0.30-5 .33 Not Available [facility] (Lab) [address], [place], [address], 04/01/2025 03:05:12 03/31/20 25 03/31/2025 CULTU RE: URINE result report SEE RESULT S BELOW Test: Cultu re: Urine Speci men Sourc e: Urine Voide d Speci men Type: Urine Speci men Date: 1710 Resul t Date: 6 Resul t Statu s: Final resul t Abnor mal: No Resul ting Lab: [facility] [address] [facility] [address] [facility] [address] Tel: CULTU RE ----- ----- ----- --- Cultu re resul t (>=3 organ isms prese nt) indic ates possi ble conta minat ion. Repea t cultu re if sympt oms indic ate. Not Available [facility] (Lab) [address] [facility], [place], [address], 04/01/2025 23:59:19 03/31/20 25 03/31/2025 urina lysis , dipst ick Leukocytes +1 Not Available [address], [place], [address], 03/31/2025 09:23:13 03/31/20 25 03/31/2025 urina lysis , dipst ick Nitrite normal Not Available [address], [place], [address], 03/31/2025 09:23:13 03/31/20 25 03/31/2025 urina lysis , dipst ick Urobilinogen normal Not Available [facility] david [address], [place], [address], 03/31/2025 09:23:13 03/31/20 25 03/31/2025 urina lysis , dipst ick Protein trace Not Available [address], [place], [address], 03/31/2025 09:23:13 03/31/20 25 03/31/2025 urina lysis , dipst ick pH 5 Not Available [address], [place], [address], 03/31/2025 09:23:13 03/31/20 25 03/31/2025 urina lysis , dipst ick Specific Bryant 1.020 Not Available [facility] nita [address], [place], [address], 03/31/2025 09:23:13 03/31/20 25 03/31/2025 urina lysis , dipst ick Ketone normal Not Available [address], [place], [address], 03/31/2025 09:23:13 03/31/20 25 03/31/2025 urina lysis , dipst ick Bilirubin normal Not Available [facility] anna [address], [place], [address], 03/31/2025 09:23:13 03/31/20 25 03/31/2025 urina lysis , dipst ick Glucose normal Not Available [address], [place], [address], 03/31/2025 09:23:13 03/31/20 25 03/31/2025 urina lysis , dipst ick Appearance normal Not Available [facility] domingo [address], [place], [address], 03/31/2025 09:23:13 03/31/20 25 03/31/2025 urina lysis , dipst ick Color normal Not Available [address], [place], [address], 03/31/2025 09:23:13 04/01/20 25 04/01/2025 [facility] DENIS bacterial vaginosis (bv), tma Negati ve negati ve Not Available [facility] (Lab) [address] [place], [address], 04/02/2025 14:08:45 04/01/20 25 04/01/2025 [facility], DENIS mekhi species, tma Negati ve negati ve Not Available [facility] (Lab) [address] [place], [address], 04/02/2025 14:08:45 04/01/20 25 04/01/2025 [facility], DENIS mekhi glabrata, tma Negati ve negati ve Not Available [facility] (Lab) [address] [place], [address], 04/02/2025 14:08:45 04/01/20 25 04/01/2025 [facility], DENIS trichomonas vaginalis, tma Negati ve negati ve Not Available [facility] (Lab) [address] [place], [address], 04/02/2025 14:08:45 04/01/20 25 04/01/2025 [facility], DENIS chlamydia trachomatis, PCR Negati ve negati ve Not Available [facility] (Lab) [address] [place], [address], 04/02/2025 14:08:45 04/01/20 25 04/01/2025 [facility], DENIS [...] ded in this panel . Not Available [facility] (Lab) [address] [place], [address], 04/02/2025 14:08:45 04/22/20 25 04/22/2025 CULTU RE: URINE result report SEE RESULT S BELOW Test: Cultu re: Urine Speci men Sourc e: Urine Voide d Speci men Type: Urine Speci men Date: 2024 1314 Resul t Date: 2024 0322 Resul t Statu s: Final resul t Abnor mal: No Resul ting Lab: [facility] [address] [facility] [address] Tel: CULTU RE ----- ----- ----- --- No growt h in 1 day (dete ction level of 10,00 0 colon ies / ml.) Not Available [facility] (Lab) [address], [place], [address], 04/24/2025 04:28:01 04/22/20 25 04/22/2025 urina lysis , dipst ick Leukocytes + Not Available [facility] [address], [place], [address], 04/22/2025 10:01:51 04/22/20 25 04/22/2025 urina lysis , dipst ick Protein + Not Available [address], [place], [address], 04/22/2025 10:01:51 04/22/20 25 04/22/2025 urina lysis , dipst ick pH 8 Not Available [address], [place], [address], 04/22/2025 10:01:51 04/22/20 25 04/22/2025 urina lysis , dipst ick Blood + Not Available [address], [place], [address], 04/22/2025 10:01:51 04/22/20 25 04/22/2025 urina lysis , dipst ick Specific Bryant 1.010 Not Available [facility] [address], [place], [address], 04/22/2025 10:01:51 04/22/20 25 04/22/2025 urina lysis , dipst ick Ketone + Not Available [place] [address], [place], [address], 04/22/2025 10:01:51 06/23/20 25 06/23/2025 HEMAT OCRIT (HCT) HCT 35.6 % (based on docume nted legal sex) 34.0-4 5.0 Not Available [facility] (Lab) [address] [facility], [place], [address], 06/24/2025 11:45:32 06/23/20 25 06/23/2025 HEMOG LOBIN (HGB) HGB 11.1 g/dL (based on docume nted legal sex) 11.6-1 5.4 low Not Available [facility] (Lab) [address] [place], [address], 06/24/2025 11:45:32 06/23/20 25 06/23/2025 GTT - GESTA ROLAND L SCREE N, ACOG OB glucose, 1 hour screen 180 mg/dL 70-135 high Not Available [facility] (Lab) [address] [place], [address], 06/24/2025 11:45:33 06/23/20 25 06/23/2025 HIV 1/2 ANTIG EN/AN TIBOD Y, REFLE X CONFI RMATI ON HIV antigen/anti body Nonrea ctive nonrea ctive HIV-1 antig en and HIV-1 /HIV- 2 antib odies were not detec greg. No labor atory evide nce of HIV infec tion. Not Available [facility] (Lab) [address] [facility], [place], [address], 06/24/2025 11:45:33 06/23/20 25 06/23/2025 RPR SCREE N, REFLE X TITER /CONF IRMAT ION RPR qualitative Nonrea ctive nonrea ctive Not Available [facility] (Lab) [address] [facility], [place], [address], 06/24/2025 11:45:34 03/02/20 25 03/02/2025 US, obste tric, nucha l trans lucen cy No observ ation record ed. [email or web address] [address], [place], [address], 03/02/2025 13:35:30 03/02/20 25 03/02/2025 US, obste tric, nucha l trans lucen cy No observ ation record ed. [email or web address] [address], [place], [address], 03/03/2025 14:08:39 03/08/2003/08/2025 US, obste tric, 1st trime ster No observ ation record ed. [email or web address] [address], [place], [address], 03/08/2025 12:22:22 03/08/2003/08/2025 US, obste tric, 1st trime ster No observ ation record ed. [email or web address] Esha [address], [place], [address], 03/10/2025 15:03:13 04/01/20 25 03/24/2025 qamar r monit or No observ ation record ed. [email or web address] [address], [place], [address], 04/08/2025 12:36:45 04/01/20 25 03/22/2025 qamar r monit or No observ ation record ed. [email or web address] [facility] [address] [facility] [address], [place], [address], 04/06/2025 08:59:34 04/20/20 25 04/20/2025 US, obste tric, limit ed No observ ation record ed. [email or web address] [address], [place], [address], 04/20/2025 17:39:30 04/20/20 25 04/20/2025 US, obste tric, follo w-up No observ ation record ed. [email or web address] [address], [place], [address], 04/23/2025 08:32:54 04/28/20 25 04/28/2025 US, obste tric, 2nd or 3rd trime ster No observ ation record ed. [email or web address] [address], [place], [address], 04/28/2025 17:48:42 04/28/20 25 04/28/2025 US, obste tric, 2nd or 3rd trime ster No observ ation record ed. [email or web address] [address], [place], [address], 05/04/2025 22:16:11 05/07/2005/07/2025 non-s tress test No observ ation record ed. [email or web address] [facility] [address] [facility] [address], [place], [address], 05/28/2025 13:33:54 05/21/20 25 05/21/2025 CT, head + brain , w/o contr ast No observ ation record ed. [email or web address] [facility] [address] [facility] [address], [place], [address], 05/24/2025 13:48:57 05/28/20 25 05/28/2025 US, obste tric, follo w-up No observ [facility]ion [facility] ed. [facility] [address], [place], [address], 05/28/2025 17:32:34 05/28/20 25 05/28/2025 US, obste tric, follo w-up No observ ation record ed. Esha [address], [place], [address], 06/01/2025 15:13:13 06/08/20 25 06/07/2025 US, obste tric, follo w-up No observ ation record ed. [facility] [address] [place] [address], [place], [address], 06/15/2025 10:53:46 07/07/20 25 07/07/2025 US, obste tric, follo w-up No observ ation record ed. [email or web address] [address], [place], [address], 07/07/2025 13:18:01 07/07/20 25 07/07/2025 US, obste tric, follo w-up No observ ation record ed. [email or web address] [address], [place], [address], 07/07/2025 11:29:37 08/04/20 25 08/04/2025 US, obste tric, follo w-up No observ ation record ed. [email or web address] [address], [place], [address], 08/04/2025 15:08:50 08/04/20 25 08/04/2025 US, obste tric, follo w-up No observ ation record ed. [email or web address] [address], [place], [address], 08/06/2025 10:41:50 08/11/2008/11/2025 non-s tress test No observ ation record ed. [email or web address] [address], [place], [address], 08/11/2025 17:37:52 08/11/20 non-s tress test No observ ation record ed. [address], [place], [address], 08/11/2025 17:38:11 08/15/2008/15/2025 non-s tress test No observ ation record ed. [address] [facility], [place], [address], 08/21/2025 10:18:57 08/15/2008/15/2025 US, obste tric, bioph ysica l profi le No observ ation record ed. [address] [facility], [place], [address], 08/17/2025 10:50:53 08/18/2008/18/2025 US, obste tric, bioph ysica l profi le + non-s tress test No observ ation record ed. [email or web address] [address], [place], [address], 08/18/2025 10:21:39 08/18/2008/18/2025 US, obste tric, bioph ysica l profi le + non-s tress test No observ ation record ed. [email or web address] [address], [place], [address], 08/18/2025 10:35:44 08/18/2008/18/2025 non-s tress test No observ ation record ed. [address], [place], [address], 08/18/2025 17:34:03 08/18/20 non-s tress test No observ ation record ed. [address], [place], [address], 08/18/2025 16:06:09 08/25/20 25 08/25/2025 US, obste tric, bioph ysica l profi le + non-s tress test No observ ation record ed. [facility] [address], [place], [address], 08/25/2025 18:52:06 08/25/20 25 08/25/2025 US, obste tric, follo w-up No observ ation record ed. [email or web address] Esha [address], [place], [address], 08/25/2025 15:47:28 08/25/20 25 08/25/2025 non-s tress test No observ ation record ed. [address], [place], [address], 08/25/2025 18:12:15 08/25/20 non-s tress test No observ ation record ed. [address], [place], [address], 08/25/2025 17:21:19 08/30/20 25 08/30/2025 non-s tress test No observ ation record ed. [address] [facility] [address] [facility], [place], [address], 09/15/2025 15:26:49 09/01/20 25 09/01/2025 non-s tress test No observ ation record ed. [facility] [address] [facility] [address], [place], [address], 09/13/2025 11:32:22 09/01/2009/01/2025 US, obste tric No observ ation record ed. [address], [place], [address], 09/02/2025 15:56:01 09/01/20 25 09/01/2025 non-s tress test No observ ation record ed. [address], [place], [address], 09/02/2025 14:32:38 09/16/2009/16/2025 imagi ng/di agnos tic resul t No observ ation record ed. [address], [place], [address], 09/16/2025 18:07:05 Result Notes None recorded. Problems Name Problem SNOMED Code Status Onset Date Resolution Date Notes Provider Name and Address Organization Details Recorded Time Hypereme sis 734853933 Completed phenerga n now prn Asia arias [facility] 2 16:43:51 Anxiety in pregnanc y 4001227464 9109 Completed will continue to monitor Asia Luis arias [facility] 2 16:43:51 Past pregnanc y history of gestatio nal diabetes mellitus 767749274 Completed Early 1 hr GTT @ 20wks 11/03 APPT Asiaamadeo arias [facility] 2 16:43:51 Spinal muscular atrophy 0962196 Completed Carrier - Not in contact with FOB. Asia ramos [facility] 2 16:43:51 Anxiety 30739055 Completed prozac Karina Burroughs [facility] 4 11:00:46 Nausea 731538968 Completed d/c zofran pump 11/08 per pt request Karina ramos [facility] 4 11:00:46 Postpart um hemorrha ge [id number] Completed 2017 with d&c Karina ramos [facility] 4 11:00:46 Normal pregnanc y in multigra jessy 3037650511 27103 Completed 201907/05/2021 Encounte r for supervis ion of other normal pregnanc y, 3rd trimeste r;Record ed Elsewher e: No Locat ion: [facility] S ource: EHR Manager Of Supply Chain yvrose: N Dennis ce ID: [email or web address] Gigi lable Time: 10:45:00 AM Karina ramos [facility] 10:15:27 Gestatio n period, 37 weeks 48451623 Completed 201907/05/2021 37 weeks gestatio n of pregnanc y;Record ed Elsewher e: No Locat ion: [facility] S ource: EHR Manager Of Supply Chain yvrose: N Natalyati ce ID: [id number] Gigi lable Time: 09:00:00 AM Karina ramos [facility] 1 10:15:[address] Concept Completed 201907/05/2021 Matern care for abnlt fetl hrt rate or rhym, 3rd tri, unsp;Rec orded Elsewher e: No Locat ion: [facility] S ource: EHR Manager Of Supply Chain yvrose: N Practi ce ID: [id number] Gigi lable Time: 08:45:00 AM Karina ramos [facility] 10:15:29 Gestatio nal diabetes mellitus 59625449 Completed 201907/05/2021 Gestatio nal diabetes mellitus in pregnanc y, diet controll ed;Recor ded Elsewher e: No Locat ion: [facility] S ource: EHR Manager Of Supply Chain yvrose: N Practi ce ID: [id number] Gigi lable Time: 11:45:00 AM Karina Burroughs null, [facility] 10:15:25 Gestatio n period, 38 weeks 96149450 Completed 201907/05/2021 38 weeks gestatio n of pregnanc y;Record ed Elsewher e: No Locat ion: Jaelyn castillo [facility] S ource: EHR Manager Of Supply Chain yvrose: N Practi ce ID: [id number] Gigi lable Time: 11:30:00 AM Karina Burroughs null, [facility] 10:15:13 Amenorrh ea 51853535 Completed 202007/10/2021 Tammi Jones null, [facility] 13:08:35 Pregnanc y 38033240 Completed 202003/29/2022 Emma Dykes null, [facility] 5 12:28:48 Pregnanc y 83224098 Completed 202304/22/2024 Emma Dykes null, [facility] 5 12:28:48 Headache 00349789 Active 2023 Karina Burroughs null, [facility] 5 16:19:28 Pregnanc y 44456997 Completed 202309/14/2025 Emma Dykes null, [facility] 5 12:28:48 Uncompli cated moderate persiste nt asthma 880492149 Completed 2024 julio Bradley MD [address], [place], [address], [facility] 5 13:08:36 Anxiety 93669092 Completed 2024 sertrali ne started 03/02/25 changed to prozac 10 on Shawn Bradley MD [address], [place], [address], [facility] 5 17:05:48 Nausea and vomiting 06738535 Completed 2024 Shawn Bradley MD [address], [place], [address], [facility] 5 13:20:27 Placenta circumva llata 1334135 Completed 2024 32[facility] 09:44:35 Frequent headache 386626971 Completed 2024 transpor t to [facility] 05/21, discharg e 05/23 [...] than 2-3 times a week. Ryann ramos [facility] 5 10:55:26 Abnormal placenta affectin g manageme nt of mother 16606861 Completed 2024 [facility] serial growth Ryann ramos [facility] 5 10:46:25 Iron deficien cy anemia 56853443 Completed 2024 [facility] tx venofer 200mg x1 HGB 10.6 Ryann ramos [facility] 5 15:21:25 Gestatio nal diabetes mellitus 87773640 Completed 2024 checking bs QID - ruled in GDM Referral [facility] to [facility] 07[facility]07 [facility] 14:36:52 Notes:Order faxed to [facility] access 08/10 for PICC line, and home health already caring for pt. Vladimir RN at [phone] Problem Notes None recorded. Procedures Surgical History Date Name Laterality Status Provider Name and Address Organization Details Recorded Time 025 SALPINGECTOMY, LAPAROSCOPIC (SURG) completed Not Available [facility] 09/06/2025 11:19:17 025 Date of Last Pap Smear completed Karina Burroughs [facility] 01/28/2025 11:19:42 024 Nexplanon Removal completed Shawn Bradley MD [address], [place], [address], [facility] 08/05/2024 15:09:58 024 Control Implant Insertion completed Anju Mcnamara CNM [address], [place], [address], [facility] 05/08/2024 17:59:34 024 cholecystectomy completed Karina Burroughs [facility] 03/31/2025 09:18:57 018 Dilation and Curettage completed Karina Burroughs [facility] 07/05/2021 10:17:50 Imaging Results None recorded. Procedure Notes None recorded. Medical Equipment None Reported. Allergies Allergen ID Allergen Name Allergen Category Reaction Reaction Severity Criticality Documentation Date Start Date Code Code System Note Provider Name and Address Organization Details Recorded Time 33620 terbutali ne medicatio n anaphylax is Not available Not available 01/27/20252021 13205 RxNorm Karina ramos [facility] 16:19:27 05293 amoxicill in medicatio n Not available Not available Not available 09/10/2025 723 RxNorm Not Available gene - External Data Service - prod 16:39:37 68027 terbinafi ne medicatio n anaphylax is Not available high 09/10/20252024 63297 RxNorm Not Available gene - External Data [...] Prescrib ed Elsewher e: Yes Loca tion: [facility] odify By: prabhjot Lee r DateTime [...] n (supplie d by office) insert lot [id number] Exp 01/2026 Not Available Not Available Not Available 28 mg iron-800 mcg tablet 07/05 completed Prescrib ed Elsewher e: Yes Loca tion: [facility] odify By: prabhjot Lee r DateTime : 01/14/20 10:45:00 AM Not Available Not Available Not Available lidocaine 5 % topical ointment APPLY OINTMENT EXTERNAL LY TO RIBS THREE TIMES DAILY NEEDED 01/14 completed Not Available Not Available Not Available RO[employer] A 28 mg iron-1 mg-200 mg [...] Updated DateTime 07/07/2025 162.56 cm 31.1 kg/m2 18861.2 2 g 98.2 [degF] 131/73 mm[Hg] Toya Perkins [facility] 11:02:12 Social History Question Answer Notes LastModified by Organizat ion Details LastModified Time Tobacco Smoking Status Former Smoker Karina ramos, [facility] 07/05/2021 09:06:21 If You Are , What Was Your Level Of Alcohol Consumption Prior To ? Occasional [email or web address] Information not available 03/31/2025 Are You Blind Or Do You Have Difficulty Seeing? No [email or web address] Information not available 07/05/2021 What Is Your Level Of Caffeine Consumption? Heavy [email or web address] Information not available 07/05/2021 In The 14 Days Before Symptom Onset, Have You Had Close Contact With A Laboratory-confir med COVID-19 While That Case Was Ill? No [email or web address] Information not available 07/05/2021 In The 14 Days Before Symptom Onset, Have You Had Close Contact With A Person Who Is Under Investigation For COVID-19 While That Person Was Ill? No [email or web address] Information not available 07/05/2021 Have You Been To An Area Known To Be High Risk For COVID-19? No [email or web address] Information not available 07/05/2021 Are You Deaf Or Do You Have Serious Difficulty Hearing? No [email or web address] Information not available 07/05/2021 What Type Of Diet Are You Following? REGULAR [email or web address] Information not available 07/05/2021 Which Illicit Or Recreational Drugs Have You Used? Marijuana [email or web address] Information not available 07/05/2021 Have You Ever Been Counseled For Unhealthy Alcohol Use? No [email or web address] Information not available 07/05/2021 Do You Use Your Seat Belt Or Car Seat Routinely? Yes [email or web address] Information not available 07/05/2021 Do You Have Smoke And Carbon Monoxide Detectors In Your Home? Yes Information not available 07/05/2021 Do You Use Sunscreen Routinely? Yes [email or web address] Information not available 07/05/2021 Has Tobacco Cessation Counseling Been Provided? No Information not available 07/05/2021 Have You Used IV Drugs? No [email or web address] Information not available 07/05/2021 Do You Have Difficulty Walking Or Climbing Stairs? No [email or web address] Information not available 12/06/2021 Sex: Unknown Functional Status Question Answer Note LastModified by Organizat ion Details LastModified Time Do you use any illicit or recreational drugs? Yes Information not available 07/05/2021 Do you or have you ever used any other forms of tobacco or nicotine? Yes Information not available 07/05/2021 What is your level of alcohol consumption? None [email or web address] Information not available 03/31/2025 Do you or have you ever used smokeless tobacco? Never used smokeless tobacco [email or web address] Information not available 07/05/2021 Are you able to walk independently without assistance or assistive devices? YESWOREST [email or web address] Information not available 07/05/2021 Are you able to care for yourself independently? Yes [email or web address] Information not available 12/06/2021 Do you have difficulty dressing, bathing, grooming, or toileting? No [email or web address] Information not available 12/06/2021 Do you or have you ever used e-cigarettes or vape? Current user of electronic cigarettes [email or web address] Information not available 07/05/2021 What is your exercise level? Occasional [email or web address] Information not available 07/05/2021 Mental Status Question Answer Note LastModified by Organization D etails LastModified Time Do you feel stressed (tense, restless, nervous, or anxious, or unable to sleep at night)? [id number] [email or web address] Information not available 07/05/2021 Family History Relationship Description Onset Age of this Age Resolved Age Notes LastModified by Organization Details LastModified Time Father No current problems or disability [email or web address] Not available 05/2021 09:06:31 Mother No current problems or disability [email or web address] Not available 05/2021 09:06:31 Medical History Condition Response Allergies (Food, seasonal, environmental ) N Other N Blood Transfusion N Drug/Latex Allergies/Reactions N Breast Cancer N Dermatologic Disorders N [...] ICD10 Code Diagnosis IMO Codes Diagnosis Note [id number] Shawn Bradley MD [facility] [address] [address] 06/23/2025 13:43:13 06/25/2025 17:52:18 [id number] [facility] [address] [place] [address] 06/23/2025 13:43:28 06/23/2025 15:58:03 Heartburn 90974633 R12 07442 Gestation period, 28 weeks 76927357 Z3A.28 3208782 [id number] Shawn Bradley MD [facility] [address],[place] [address] 07/07/2025 10:14:22 07/07/2025 11:00:23 Anomaly of placenta 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 O43.103 Z3A.30 6421697 [id number] [facility] [address] [place] [address] 07/07/2025 10:14:33 07/07/2025 11:38:54 Gestation period, 30 weeks 43110427 Z3A.30 9780738 cont pnv Nausea 764146588 R11.0 64262 Gestationa l diabetes mellitus 66045304 O24.419 [id number] Health Concerns Section Related Observation LastModified by Organization Detai ls LastModified Time None Recorded Concern Status LastModified by Organization Details LastModified Time None Recorded Payers Encounter Date Sequence Insurance Name Policy Number Policy Roberts Covered Member ID Roberts Member ID Guarantor Name 07/07/2025 1 [facility] (MEDICAID HMO) [id number] Yuni Mejia [id number] Yuni Mejia Notes Date Note Type Note Provider Name and Address Organization Details Recorded Time 07/07/2025 text/html Generic HPI TemplateReported by Patient Anju Mcnamara CNM [address], [place], [address], [facility] 07/07/2025 11:37:13 OBGyn Episode Ob Episode Information Episode Created Date Number of Fetuses Patient Bloodtype Patient rh Status Prepregnancy Weight lbs Domestic Partner Domestic Partner Phone Father Name County Extension Agent Status 03/02/20 1 B Positive 164 CLOSED Fetus Data First Name Last Name Admitted to NICU Weight (g) Sex Living Outcome Pediatric Complications Fetus ID Race Codes Race Delivery Type Gladis false 4025.62 9 F true Full Term 20920 Vaginal Delivery Problems Problem Notes SDH form completed 5GI consult Tachycardia Holter monitor 72 order- pt sent back on 03-27-25 Cardiology referral faxed per Dr Martínez office calling pt 04/21 to schedule consult scheduled 05/11 11:15AM Problem Name Start Date End Date Resolution Snomed Code Not e Uncomplicated moderate persistent asthma 03/02/2025 856163825 albuterol prn Abnormal placenta affecting management of mother 05/04/2025 84695153 [facility] serial grow th us Iron deficiency anemia 05/25/2025 63219212 [facility] tx [place] 200mg x1 HGB 10.6 Nausea and vomiting 03/02/2025 86729525 Anxiety 03/02/2025 85105005 sertralin e started 03/02/25 changed to prozac 10 on Gestational diabetes mellitus 07/08/2025 09572197 checking bs QID - ruled in GDM Referral faxed to [facility] 07/07 Frequent headache 05/03/2025 [id number] [place] to [facility] 05/21, discharge 05/23 MFM referral faxed 05/24 [facility] consult pending per KAJAL Pittman [facility]- Neuro SS unable to see pt due to insurance 05/25[facility] 07/05/25 Level US & Consult (see [facility] consult azyas recommendations ) regimen prn Imitrex 50mg for acute migraine, vitamin B2 (Riboflavin) 400mg, Coenzyme q10 300mg and magnesium oxide 200 to 600mg daily. minimize use of Excedrin or Tylenol to no more than 2-3 times a week. 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/2025 5507162 32wk growth us Jun Calculation Initial Jun [...] Weight in lbs Pre/Post Dialysis Refused Weight 158.705689955360 BP Diastolic BP Location Tested BP Systolic [...] Weight in lbs Pre/Post Dialysis Refused Weight 158.419733153716 BP Diastolic BP Location Tested BP Systolic [...] Weight in lbs Pre/Post Dialysis Refused Weight 162.427500065076 BP Diastolic BP Location Tested BP Systolic [...] Type Weight in lbs Pre/Post Dialysis Refused 168.072371427486 BP Diastolic BP Location Tested BP Systolic [...] Type Weight in lbs Pre/Post Dialysis Refused 169.208559705473 BP Diastolic BP Location Tested BP Systolic [...] Weight in lbs Pre/Post Dialysis Refused Weight 175.162003361249 BP Diastolic BP Location Tested BP Systolic [...] Weight in lbs Pre/Post Dialysis Refused Weight 182.173423645240 BP Diastolic BP Location Tested BP Systolic [...] Weight in lbs Pre/Post Dialysis Refused Weight 181.235548272275 BP Diastolic BP Location Tested BP Systolic BP Type 73 L arm 131 sitting Fetus Heart Rate Present Fetus Movement A Yes Comments viral URI testied neg at urg ent care, nausea resolved, efw 68%, +FM plan education and precautions f/u 2 weeks diagnosed GDM, plan 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, gave list reviewed protein vs carb Flowsheet Date 07/21/2025 Gibson Score Blood Edema Fundus Height Fundus Units Glucose Ketones Leukocytes Nitrite Labor Signs Protein Cervic Dilation Cervic Effacement Cervic Station Type Weight in lbs Pre/Post Dialysis Refused Weight 181.897544798944 BP Diastolic BP Location Tested BP Systolic BP Type 78 L arm 127 sitting Fetus Heart Rate Present A 150 Fetus Movement A Yes Comments rpt urine culture +FM review ed blood sugars, meets with 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 today, precautions and education f/u 2 weeks [...] Weight in lbs Pre/Post Dialysis Refused Weight 181.092514488343 BP Diastolic BP Location Tested BP Systolic [...] Weight in lbs Pre/Post Dialysis Refused Weight 183.635490250341 BP Diastolic BP Location Tested BP Systolic [...] Type Weight in lbs Pre/Post Dialysis Refused 184.958758811185 BP Diastolic BP Location Tested BP Systolic [...] Type Weight in lbs Pre/Post Dialysis Refused 184.612297571750 BP Diastolic BP Location Tested BP Systolic [...] Type Weight in lbs Pre/Post Dialysis Refused 184.113274893051 BP Diastolic BP Location Tested BP Systolic [...] Weight in lbs Pre/Post Dialysis Refused Weight 184.434286563674 BP Diastolic BP Location Tested BP Systolic [...] Weight in lbs Pre/Post Dialysis Refused Weight 164.758508238213 BP Diastolic BP Location Tested BP Systolic [...]
--- OUTSIDE RECORDS SUMMARY | 2025-09-16 17:53 | XMS_ITS ---
Author Organization Unknown Address [address] [place] [address] [phone] Phone Care Team Providers Care Special Agent Secret Service Name Role Phone DAVID ASHTON Attending Unavailable [...] em Smoking History Never smoker (Never Smoked) [id number] SNOMED CT Sex Female Assessment You had [...] 6002 SNOMED-CT UNSPECIFIED ABDOMINAL PAIN active 215 61258 SNOMED-CT Allergies and Adverse Reactions Allergy Substance Reaction Severity Start Date Concern Status Co de Code System AMOXICILLIN Active 723 RxNorm TERBUTALINE Active 11365 RxNorm Plan of Treatment Stress Test Treadmill 01/21/2025 Toe Lining Closer Consult 04/27/2025 Encounters Encounter Diagnosis Start Date Code Code Sys tem Procedure and treatment not carried out due to patient leaving prior to being seen by health care provider 08/14/2024 SNOMED-CT Personal Care Team Section Performer Name [...]
--- OUTSIDE RECORDS SUMMARY | 2025-09-16 17:53 | XMS_ITS ---
Author Organization Unknown Address [address] [place] [address] [phone] Phone Care Team Providers Care Intensivist Name Role Phone RUFUS SEGAL Attending Unavailable SEAN Balderrama Primary Unavailable Immunization [...] em Smoking History Never smoker (Never Smoked) 514278128 SNOMED CT Sex Female Assessment You had [...] 6002 SNOMED-CT UNSPECIFIED ABDOMINAL PAIN active 215 08882 SNOMED-CT Allergies and Adverse Reactions Allergy Substance Reaction Severity Start Date Concern Status Co de Code System AMOXICILLIN Active 723 RxNorm TERBUTALINE Active 42694 RxNorm Plan of Treatment Stress Test Treadmill 01/21/2025 Vehicle Inspector Consult 04/27/2025 Encounters Encounter Diagnosis Start Date Code Code Sys tem Panic disorder [episodic paroxysmal anxiety] 4 SNOMED-CT Personal Care Team Section Performer Name [...]
--- OUTSIDE RECORDS SUMMARY | 2025-09-16 17:53 | XMS_ITS ---
Author Organization Unknown Address [address] [place] [address] [phone] Phone Care Team Providers Care Chemical Operations [employer] Training Name Role Phone ANNABELLE GONZALEZ Attending Unavailable SEAN Balderrama Primary Unavailable Immunization [...] CVX HPV9 01/05/2017 Completed 165 CVX Results GROUP A STREP BY PCR - Colle ct Date/Time: 06/14/2024 00:01 [facility] ID: [id number] [address] [place], [place], [phone] LOINC: 67838-3 Test Value Unit Reference Range Code Code System Flag GRP A STREP PCR NEGATIVE NORMAL: NEGATIVE RESPIRATORY PATHOGEN PANEL + SARS PCR - Collect Date/Time: 06/14/2024 00:01 [facility] ID: [id number] [address] [place] [address], [phone] LOINC: 08382-6 Test Value Unit Reference Range Code Code System Flag ADENOVIRUS NOT DETECTED NORMAL: NOT DETECTED 5778-6 LOINC CORONAVIRUS 229E NOT DETECTED NORMAL: NOT DETECTED 5778-6 LOINC CORONAVIRUS HKU1 NOT DETECTED NORMAL: NOT DETECTED 5778-6 LOINC CORONAVIRUS NL63 NOT DETECTED NORMAL: NOT DETECTED 5778-6 LOINC CORONAVIRUS OC43 NOT DETECTED NORMAL: NOT DETECTED 5778-6 LOINC CORONAVIRUS COVID-19 NOT DETECTED NORMAL: NOT DETECTED 01270-5 LOINC H METAPNEUMOVIRUS NOT DETECTED NORMAL: NO T DETECTED 5778-6 LOINC H RHINO/ENTEROVIRUS NOT DETECTED NORMAL: NOT DETECTED 5778-6 LOINC INFLU A NOT DETECTED NORMAL: NOT DETECTED 5778-6 LOINC INFLU A/H1 N/A NORMAL: NOT DETECTED 5778-6 LOINC INFLU A/H3 N/A NORMAL: NOT DETECTED 5778-6 LOINC INFLU A/H1 2009 N/A NORMAL: NOT DETECTED 5778-6 LOINC INFLU B NOT DETECTED NORMAL: NOT DETECTED 5778-6 LOINC PARAINFLU VIRUS 1 NOT DETECTED NORMAL: NO T DETECTED 5778-6 LOINC PARAINFLU VIRUS 2 NOT DETECTED NORMAL: NO T DETECTED 5778-6 LOINC PARAINFLU VIRUS 3 NOT DETECTED NORMAL: NO T DETECTED 5778-6 LOINC PARAINFLU VIRUS 4 NOT DETECTED NORMAL: NO T DETECTED 5778-6 LOINC RESP SYNCYTIAL VIRUS NOT DETECTED NORMAL: NOT DETECTED 5778-6 LOINC BORDETELLA PARAPERT NOT DETECTED NORMAL: NOT DETECTED 5778-6 LOINC BORDETELLA PERT NOT DETECTED NORMAL: NOT DETECTED 5778-6 LOINC CHLAMYDIA PNEUMONIAE NOT DETECTED NORMAL: NOT DETECTED 5778-6 LOINC MYCOPLAS PNEUMONIAE NOT DETECTED NORMAL: NOT DETECTED 5778-6 LOINC SEND TO [facility]? NO CHEST 2V - Completed: 2023 01:08 LOINC: EXAM DESCRIPTION: CHEST 2V REASON FOR STUDY: Onset x 1 day, Dry cough, Bilateral Rib pain. HX: HTN Duration: . TECHNIQUE: PA and lateral radiographic view(s) of the chest. COMPARISON: 07/21/2023. FINDINGS: LUNGS: No focal opacity, pleural effusion, or pneumothorax. HEART/MEDIASTINUM: Cardiac silhouette normal in size. Mediastinal and hilar contours appear normal. LINES/TUBES: None. BONES: No acute osseous abnormality. IMPRESSION: No acute cardiopulmonary abnormality. THIS IS AN ELECTRONICALLY VERIFIED FINAL REPORT 06/14/2024 1:05 AM - Electronically signed by Keny Banks M.D., D.O. Keny Banks M.D., D.O. MW: SOLA Report ID: [id number] Reading Location: [place] [address] Social History Type Status Start Date End Date Code Code Syst em Smoking History Never smoker (Never Smoked) [id number] SNOMED CT Sex Female Assessment You had [...] 6002 SNOMED-CT UNSPECIFIED ABDOMINAL PAIN active 215 54993 SNOMED-CT Allergies and Adverse Reactions Allergy Substance Reaction Severity Start Date Concern Status Co de Code System AMOXICILLIN Active 723 RxNorm TERBUTALINE Active 57289 RxNorm Plan of Treatment Stress Test Treadmill 01/21/2025 Bottle Packer Consult 04/27/2025 Encounters Encounter Diagnosis Start Date Code Code Sys tem Acute nasopharyngitis [common cold] 06/13/2024 SNOMED-CT Personal Care Team Section Performer Name [...]
--- OUTSIDE RECORDS SUMMARY | 2025-09-16 17:54 | XMS_ITS | Continuity of Care Document ---
Author Organization 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 Plan of Treatment Reminders Order Date Submit Date Provider Last Modified By Organization Details Last Modified Time Details Appointments None record ed. Lab None record ed. Referral None record ed. Procedures None record ed. Surgeries None record ed. Imaging non-st ress test 025 08/11/20 25 [email or web address], [address], [place], [address], 17:46:32 Medication Orders None record ed. Patient TargetsNo targets recorded. Patient InstructionsNo instructions recorded. Reason for Referral None Reported. Results Created Date Observation Date Name Description Value Unit Range Abnormal Flag Note LastModifiedBy Organization Detail LastModifiedTime 03/06/2003/06/2025 [UNIT Y] ANEUP LOIDY NIPT fraction 5.7% normal Not Available [facility] [address], [place], [address], 03/06/2025 03:58:26 03/06/20 25 03/06/2025 [UNIT Y] ANEUP LOIDY NIPT sex chromosome aneuploidy NOT DETECT ED normal Not Available [facility] [address], [place], [address], 03/06/2025 03:58:26 03/06/20 25 03/06/2025 [UNIT Y] ANEUP LOIDY NIPT monosomy X LOW RISK <1 in 10,000 normal Not Available [facility] [address], [place], [address], 03/06/2025 03:58:26 03/06/20 25 03/06/2025 [UNIT Y] ANEUP LOIDY NIPT trisomy 13 LOW RISK <1 in 10,000 normal Not Available [address] [address], [place], [address], 03/06/2025 03:58:26 03/06/20 25 03/06/2025 [UNIT Y] ANEUP LOIDY NIPT trisomy 18 LOW RISK <1 in 10,000 normal Not Available [address] [address], [place], [address], 03/06/2025 03:58:26 03/06/20 25 03/06/2025 [UNIT Y] ANEUP LOIDY NIPT trisomy 21 LOW RISK <1 in 10,000 normal Not Available [address] [address], [place], [address], 03/06/2025 03:58:26 03/06/20 25 03/06/2025 [UNIT Y] ANEUP LOIDY NIPT sex FEMALE normal Not Available [facility] [address], [place], [address], 03/06/2025 03:58:26 03/06/20 25 03/06/2025 [UNIT Y] ANEUP LOIDY NIPT gestation SINGLE TON normal Not Available [facility] [address], [place], [address], 03/06/2025 03:58:26 03/06/20 25 03/06/2025 [UNIT Y] ANEUP LOIDY NIPT for detailed report, see pdf See PDF normal Not Available [facility] [address], [place], [address], 03/06/2025 03:58:26 03/02/2003/02/2025 CULTU RE: URINE result report SEE RESULT S BELOW Test: Cultu re: Urine Speci men Sourc e: Urine - Clean Catch Speci men Type: Urine Speci men Date: 1455 Resul t Date: 025 2138 Resul t Statu s: Final resul t Abnor mal: No Resul ting Lab: [facility] [address] [facility] [address] Tel: CULTU RE ----- ----- ----- --- No growt h in 1 day (dete ction level of 10,00 0 colon ies / ml.) Not Available [facility] (Lab) [address] [facility], [place], [address], 03/03/2025 22:42:27 03/12/2003/12/2025 CULTU RE: URINE result report SEE RESULT S BELOW Test: Cultu re: Urine Speci men Sourc e: Urine - Clean Catch Speci men Type: Urine Speci men Date: 2024 1600 Resul t Date: 2024 0610 Resul t Statu s: Final resul t Abnor mal: No Resul ting Lab: [facility] [address] [facility] [address] Tel: CULTU RE ----- ----- ----- --- No growt h in 1 day (dete ction level of 10,00 0 colon ies / ml.) Not Available [facility] (Lab) [address] [facility], [place], [address], 03/14/2025 07:15:03 03/12/2003/12/2025 urina lysis , dipst ick Leukocytes ++ Not Available [address], [place], [address], 03/12/2025 16:45:06 03/12/2003/1203/12/2025 urina lysis , dipst ick Protein + Not Available [address], [place], [address], 03/12/2025 16:45:06 03/12/20 25 03/12/2025 urina lysis , dipst ick pH 5 Not Available [address], [place], [address], 03/12/2025 16:45:06 03/12/20 25 03/12/2025 urina lysis , dipst ick Blood trace Not Available [address], [place], [address], 03/12/2025 16:45:06 03/12/20 25 03/12/2025 urina lysis , dipst ick Specific [place] 1.015 Not Available [facility] [address], [place], [address], 03/12/2025 16:45:06 03/12/20 25 03/12/2025 urina lysis , dipst ick Ketone +++ Not Available [address], [place], [address], 03/12/2025 16:45:06 03/31/20 25 03/31/2025 TSH, REFLE X FREE T4 TSH 0.42 uIU/m L 0.30-5 .33 Not Available [facility] (Lab) [address], [place], [address], 04/01/2025 03:05:12 03/31/20 25 03/31/2025 CULTU RE: URINE result report SEE RESULT S BELOW Test: Cultu re: Urine Speci men Sourc e: Urine Voide d Speci men Type: Urine Speci men Date: 1710 Resul t Date: 6 Resul t Statu s: Final resul t Abnor mal: No Resul ting Lab: [facility] [address] [facility] [address] Tel: CULTU RE ----- ----- ----- --- Cultu re resul t (>=3 organ isms prese nt) indic ates possi ble conta minat ion. Repea t cultu re if sympt oms indic ate. Not Available [facility] (Lab) [address] [facility], [place], [address], 04/01/2025 23:59:19 03/31/20 25 03/31/2025 urina lysis , dipst ick Leukocytes +1 Not Available [address], [place], [address], 03/31/2025 09:23:13 03/31/20 25 03/31/2025 urina lysis , dipst ick Nitrite normal Not Available [address], [place], [address], 03/31/2025 09:23:13 03/31/20 25 03/31/2025 urina lysis , dipst ick Urobilinogen normal Not Available [facility] [address], [place], [address], 03/31/2025 09:23:13 03/31/20 25 03/31/2025 urina lysis , dipst ick Protein trace Not Available [address], [place], [address], 03/31/2025 09:23:13 03/31/20 25 03/31/2025 urina lysis , dipst ick pH 5 Not Available [address], [place], [address], 03/31/2025 09:23:13 03/31/20 25 03/31/2025 urina lysis , dipst ick Specific [place] 1.020 Not Available [facility] [address], [place], [address], 03/31/2025 09:23:13 03/31/20 25 03/31/2025 urina lysis , dipst ick Ketone normal Not Available [address], [place], [address], 03/31/2025 09:23:13 03/31/20 25 03/31/2025 urina lysis , dipst ick Bilirubin normal Not Available [facility] [address], [place], [address], 03/31/2025 09:23:13 03/31/20 25 03/31/2025 urina lysis , dipst ick Glucose normal Not Available [address], [place], [address], 03/31/2025 09:23:13 03/31/20 25 03/31/2025 urina lysis , dipst ick Appearance normal [facility] Available [facility] [address], [place], [address], 03/31/2025 09:23:13 03/31/20 25 03/31/2025 urina lysis , dipst ick Color normal Not Available [address], [place], [address], 03/31/2025 09:23:13 04/01/20 25 04/01/2025 [facility], DENIS bacterial vaginosis (bv), tma Negati ve negati ve Not Available [facility] (Lab) [address] [place], [address], 04/02/2025 14:08:45 04/01/20 25 04/01/2025 [facility], DENIS mekhi species, tma Negati ve negati ve Not Available [facility] (Lab) [address], [address], 04/02/2025 14:08:45 04/01/20 25 04/01/2025 [facility] SWAB PLUS, DENIS mekhi glabrata, tma Negati ve negati ve Not Available [facility] (Lab) [address] [place], [address], 04/02/2025 14:08:45 04/01/20 25 04/01/2025 [facility], DENIS trichomonas vaginalis, tma Negati ve negati ve Not Available [facility] (Lab) [address] [facility], [place], [address], 04/02/2025 14:08:45 04/01/20 25 04/01/2025 [facility], DENIS chlamydia trachomatis, PCR Negati ve negati ve Not Available [facility] (Lab) [address] [place], [address], 04/02/2025 14:08:45 04/01/20 25 04/01/2025 [facility], DENIS neisseria gonorrhoeae, PCR [...] ded in this panel . Not Available [facility] (Lab) [address] [place], [address], 04/02/2025 14:08:45 04/22/20 25 04/22/2025 CULTU RE: URINE result report SEE RESULT S BELOW Test: Cultu re: Urine Speci men Sourc e: Urine Voide d Speci men Type: Urine Speci men Date: 2024 1314 Resul t Date: 2024 0322 Resul t Statu s: Final resul t Abnor mal: No Resul ting Lab: [facility] [address] [facility] [address] Tel: CULTU RE ----- ----- ----- --- No growt h in 1 day (dete ction level of 10,00 0 colon ies / ml.) Not Available [facility] (Lab) [address], [place], [address], 04/24/2025 04:28:01 04/22/20 25 04/22/2025 urina lysis , dipst ick Leukocytes + Not Available [facility] [address], [place], [address], 04/22/2025 10:01:51 04/22/20 25 04/22/2025 urina lysis , dipst ick Protein + Not Available [address], [place], [address], 04/22/2025 10:01:51 04/22/20 25 04/22/2025 urina lysis , dipst ick pH 8 Not Available [address], [place], [address], 04/22/2025 10:01:51 04/22/20 25 04/22/2025 urina lysis , dipst ick Blood + Not Available [address], [place], [address], 04/22/2025 10:01:51 04/22/2004/22/2025 urina lysis , dipst ick Specific [place] 1.010 Not Available [facility] [address], [place], [address], 04/22/2025 10:01:51 04/22/20 25 04/22/2025 urina lysis , dipst ick Ketone + Not Available [address], [place], [address], 04/22/2025 10:01:51 06/23/2006/23/2025 HEMAT OCRIT (HCT) HCT 35.6 % (based on docume nted legal sex) 34.0-4 5.0 Not Available [facility] (Lab) [address] [facility] [address] [facility], [place], [address], 06/24/2025 11:45:32 06/23/20 25 06/23/2025 HEMOG LOBIN (HGB) HGB 11.1 g/dL (based on docume nted legal sex) 11.6-1 5.4 low Not Available [facility] (Lab) [address] [facility] [address], [place], [address], 06/24/2025 11:45:32 06/23/20 25 06/23/2025 GTT - GESTA ROLAND L SCREE N, ACOG OB glucose, 1 hour screen 180 mg/dL 70-[address] [facility] (Lab) [address], [place], [address], 06/24/2025 11:45:33 06/23/20 25 06/23/2025 HIV 1/2 ANTIG EN/AN TIBOD Y, REFLE X CONFI RMATI ON HIV antigen/anti body Nonrea ctive nonrea ctive HIV-1 antig en and HIV-1 /HIV- 2 antib odies were not detec greg. No labor atory evide nce of HIV infec tion. Not Available [facility] (Lab) [address], [place], [address], 06/24/2025 11:45:33 06/23/20 25 06/23/2025 RPR SCREE N, REFLE X TITER /CONF IRMAT ION RPR qualitative Nonrea ctive nonrea ctive Not Available [facility] (Lab) [address], [place], [address], 06/24/2025 11:45:34 07/21/20 25 07/21/2025 CULTU RE: URINE result report SEE RESULT S BELOW Test: Cultu re: Urine Speci men Sourc e: Urine - Clean Catch Speci men Type: Urine Speci men Date: 2024 1024 Resul t Date: 2024 0252 Resul t Statu s: Final resul t Abnor mal: No Resul ting Lab: [facility] [address] [facility] [address] Tel: CULTU RE ----- ----- ----- --- No growt h in 1 day (dete ction level of 10,00 0 colon ies / ml.) Not Available [facility] (Lab) [address] [facility], [place], [address], 07/23/2025 03:57:01 07/21/2007/21/2025 urina lysis , dipst ick Leukocytes ++ Not Available [address], [place], [address], 07/21/2025 11:03:04 07/21/20 25 07/21/2025 urina lysis , dipst ick Nitrite neg Not Available [address], [place], [address], 07/21/2025 11:03:04 07/21/20 25 07/21/2025 urina lysis , dipst ick Urobilinogen neg Not Available [facility] [address], [place], [address], 07/21/2025 11:03:04 07/21/20 25 07/21/2025 urina lysis , dipst ick Protein + Not Available [facility], [place], [address], 07/21/2025 11:03:04 07/21/20 25 07/21/2025 urina lysis , dipst ick pH 5 Not Available [address], [place], [address], 07/21/2025 11:03:04 07/21/20 25 07/21/2025 urina lysis , dipst ick Specific [place] 1.030 Not Available [facility] nita [address], [place], [address], 07/21/2025 11:03:04 07/21/20 25 07/21/2025 urina lysis , dipst ick Ketone +++ Not Available [address], [place], [address], 07/21/2025 11:03:04 07/21/20 25 07/21/2025 urina lysis , dipst ick Bilirubin neg Not Available [address], [place], [address], 07/21/2025 11:03:04 07/21/20 25 07/21/2025 urina lysis , dipst ick Glucose neg Not Available [address], [place], [address], 07/21/2025 11:03:04 07/21/20 25 07/21/2025 urina lysis , dipst ick Appearance cloudy Not Available [address], [place], [address], 07/21/2025 11:03:04 07/21/20 25 07/21/2025 urina lysis , dipst ick Color dark Not Available [address], [place], [address], 07/21/2025 11:03:04 08/04/20 25 08/04/2025 CMP(C OMPRE HENSI VE METAB OLIC PANEL ) sodium 138 mmol/ L 133-14 6 Not Available [facility] (Lab) [address] [facility], [place], [address], 08/05/2025 13:39:18 08/04/2008/04/2025 CMP(C OMPRE HENSI VE METAB OLIC PANEL ) potassium 4.0 mmol/ L 3.5-5. 1 Not Available [facility] (Lab) [address] [facility] [address] [facility], [place], [address], 08/05/2025 13:39:18 08/04/20 25 08/04/2025 CMP(C OMPRE HENSI VE METAB OLIC PANEL ) chloride 105 mmol/ L 98-107 Not Available [facility] (Lab) [address] [facility], [place], [address], 08/05/2025 13:39:18 08/04/20 25 08/04/2025 CMP(C OMPRE HENSI VE METAB OLIC PANEL ) carbon dioxide 25 mmol/ L 21-31 Not Available [facility] (Lab) [address] [facility], [place], [address], 08/05/2025 13:39:18 08/04/20 25 08/04/2025 CMP(C OMPRE HENSI VE METAB OLIC PANEL ) anion gap 8 mmol/ L 4-13 Not Available [facility] (Lab) [address] [place], [address], 08/05/2025 13:39:18 08/04/20 25 08/04/2025 CMP(C OMPRE HENSI VE METAB OLIC PANEL ) blood urea nitrogen 10 mg/dL 7-[address] [facility] (Lab) [address], [place], [address], 08/05/2025 13:39:18 08/04/20 25 08/04/2025 CMP(C OMPRE HENSI VE METAB OLIC PANEL ) creatinine 0.41 mg/dL 0.60-1 .30 low Not Available [facility] (Lab) [address] [facility], [place], [address], 08/05/2025 13:39:18 08/04/20 25 08/04/2025 CMP(C OMPRE HENSI VE METAB OLIC PANEL ) egfrcr (CKD-epi 2020) >90 mL/mi n/1.7 3_m2 >=60 Not Available [facility] (Lab) [address] [facility], [place], [address], 08/05/2025 13:39:18 08/04/20 25 08/04/2025 CMP(C OMPRE HENSI VE METAB OLIC PANEL ) calcium 8.9 mg/dL 8.3-10 .5 Not Available [facility] (Lab) [address] [facility], [place], [address], 08/05/2025 13:39:18 08/04/20 25 08/04/2025 CMP(C OMPRE HENSI VE METAB OLIC PANEL ) glucose 116 mg/dL 70-100 high Not Available [facility] (Lab) [address] [facility], [place], [address], 08/05/2025 13:39:18 08/04/20 25 08/04/2025 CMP(C OMPRE HENSI VE METAB OLIC PANEL ) protein, total 6.1 g/dL 6.4-8. 3 low Not Available [facility] (Lab) [address] [facility], [place], [address], 08/05/2025 13:39:18 08/04/20 25 08/04/2025 CMP(C OMPRE HENSI VE METAB OLIC PANEL ) albumin 3.5 g/dL 3.5-5. 0 Not Available [facility] (Lab) [address] [facility], [place], [address], 08/05/2025 13:39:18 08/04/20 25 08/04/2025 CMP(C OMPRE HENSI VE METAB OLIC PANEL ) ALT 11 units /L 9-43 Not Available [facility] (Lab) [address] [facility], [place], [address], 08/05/2025 13:39:18 08/04/20 25 08/04/2025 CMP(C OMPRE HENSI VE METAB OLIC PANEL ) alkaline phosphatase 98 units /L 34-104 Not Available [facility] (Lab) [address] [facility], [place], [address], 08/05/2025 13:39:18 08/04/20 25 08/04/2025 CMP(C OMPRE HENSI VE METAB OLIC PANEL ) AST 15 units /L 13-39 Not Available [facility] (Lab) [address] [facility], [place], [address], 08/05/2025 13:39:18 08/04/20 25 08/04/2025 CMP(C OMPRE HENSI VE METAB OLIC PANEL ) bilirubin, total 0.3 mg/dL 0.2-1. 2 Not Available [facility] (Lab) [address] [facility], [place], [address], 08/05/2025 13:39:18 08/04/20 25 08/04/2025 BILE ACIDS , TOTAL bile acids, total 4 umol/ L 0-10 Test Perfo rmed by: [facility] [address] [address] Not Available [facility] (Lab) [address] [facility], [place], [address], 08/05/2025 13:39:19 03/02/20 25 03/02/2025 US, obste tric, nucha l trans lucen cy No observ ation record ed. [email or web address] [address], [place], [address], 03/02/2025 13:35:30 03/02/20 25 03/02/2025 US, obste tric, nucha l trans lucen cy No observ ation record ed. [email or web address] [address], [place], [address], 03/03/2025 14:08:39 03/08/20 25 03/08/2025 US, obste tric, 1st trime ster No observ ation record ed. [email or web address] [address], [place], [address], 03/08/2025 12:22:22 03/08/20 25 03/08/2025 US, obste tric, 1st trime ster No observ ation record ed. [email or web address] [address], [place], [address], 03/10/2025 15:03:13 04/01/20 25 03/24/2025 qamar r monit or No observ ation record ed. [address] [place] [address], [address], 04/08/2025 12:36:45 04/01/20 25 03/22/2025 qamar r monit or No observ ation record ed. [address] (Pulmonary) [address] [place] [address] [place] [address], [address], 04/06/2025 08:59:34 04/20/20 25 04/20/2025 US, obste tric, limit ed No observ ation record ed. [email or web address] [address], [place], [address], 04/20/2025 17:39:30 04/20/20 25 04/20/2025 US, obste tric, follo w-up No observ ation record ed. [address], [place], [address], 04/23/2025 08:32:54 04/28/20 25 04/28/2025 US, obste tric, 2nd or 3rd trime ster No observ ation record ed. [email or web address] [address], [place], [address], 04/28/2025 17:48:42 04/28/20 25 04/28/2025 US, obste tric, 2nd or 3rd trime ster No observ ation record ed. [email or web address] [address], [place], [address], 05/04/2025 22:16:11 05/07/20 25 05/07/2025 non-s tress test No observ ation record ed. [email or web address] [place] [address] [address], [place], [address], 05/28/2025 13:33:54 05/21/20 25 05/21/2025 CT, head + brain , w/o contr ast No observ ation record ed. [email or web address], [place], [address], 05/24/2025 13:48:57 05/28/20 25 05/28/2025 US, obste tric, follo w-up No observ ation record ed. [email or web address] [address], [place], [address], 05/28/2025 17:32:34 05/28/20 25 05/28/2025 US, obste tric, follo w-up No observ ation record ed. [email or web address] [address], [place], [address], 06/01/2025 15:13:13 06/08/20 25 06/07/2025 US, obste tric, follo w-up No observ ation record ed. [email or web address] [facility] [address] [facility], [place], [address], 06/15/2025 10:53:46 07/07/20 25 07/07/2025 US, obste tric, follo w-up No observ ation record ed. [email or web address] [address], [place], [address], 07/07/2025 13:18:01 07/07/20 25 07/07/2025 US, obste tric, follo w-up No observ ation record ed. [email or web address] [address], [place], [address], 07/07/2025 11:29:37 08/04/20 25 08/04/2025 US, obste tric, follo w-up No observ ation record ed. [email or web address] [address], [place], [address], 08/04/2025 15:08:50 08/04/20 25 08/04/2025 US, obste tric, follo w-up No observ ation record ed. [address], [place], [address], 08/06/2025 10:41:50 08/11/2008/11/2025 non-s tress test No observ ation record ed. [email or web address] [facility] [address], [place], [address], 08/11/2025 17:37:52 08/11/20 non-s tress test No observ ation record ed. [email or web address] [address], [place], [address], 08/11/2025 17:38:11 08/15/2008/15/2025 non-s tress test No observ ation record ed. [address], [place], [address], 08/21/2025 10:18:57 08/15/2008/15/2025 US, obste tric, bioph ysica l profi le No observ ation record ed. [place] [id number] [facility] [address], [place], [address], 08/17/2025 10:50:53 08/18/2008/18/2025 US, obste tric, bioph ysica l profi le + non-s tress test No observ ation record ed. [email or web address] [address], [place], [address], 08/18/2025 10:21:39 08/18/2008/18/2025 US, obste tric, bioph ysica l profi le + non-s tress test No observ ation record ed. [email or web address] [address], [place], [address], 08/18/2025 10:35:44 08/18/2008/18/2025 non-s tress test No observ ation record ed. [email or web address] [facility] [address], [place], [address], 08/18/2025 17:34:03 08/18/20 non-s tress test No observ ation record ed. [email or web address] [facility] [address], [place], [address], 08/18/2025 16:06:09 08/25/20 25 08/25/2025 US, obste tric, bioph ysica l profi le + non-s tress test No observ ation record ed. [email or web address] [address], [place], [address], 08/25/2025 18:52:06 08/25/2008/25/2025 US, obste tric, follo w-up No observ ation record ed. [email or web address] [address] [address], [place], [address], 08/25/2025 15:47:28 08/25/2008/25/2025 non-s tress test No observ ation record ed. [email or web address] [place] [address], [place], [address], 08/25/2025 18:12:15 08/25/20 non-s tress test No observ ation record ed. [email or web address] [place] [address], [place], [address], 08/25/2025 17:21:19 08/30/2008/30/2025 non-s tress test No observ ation record ed. [email or web address] [address] [place] [address], [id number], 09/15/2025 15:26:49 09/01/20 25 09/01/2025 non-s tress test No observ ation record ed. [place] [id number] [facility] [address] [place] [address], [address], 09/13/2025 11:32:22 09/01/2009/01/2025 [place], obste tric No observ ation record ed. [email or web address] [id number] [facility] [address], [place], [address], 09/02/2025 15:56:01 09/01/20 25 09/01/2025 non-s tress test No observ ation record ed. [email or web address], [place], [address], 09/02/2025 14:32:38 09/16/20 25 09/16/2025 imagi ng/di agnos tic resul t No observ ation record ed. [facility] [address], [place], [address], 09/16/2025 18:07:05 Result Notes None recorded. Problems Name Problem SNOMED Code Status Onset Date Resolution Date Notes Provider Name and Address Organization Details Recorded Time Hypereme sis [id number] Completed phenerga n now prn Asia ramos [facility] 2 16:43:51 Anxiety in pregnanc y [id number] Completed will continue to monitor Asia ramos [facility] 2 16:43:51 Past pregnanc y history of gestatio nal diabetes mellitus [id number] Completed Early 1 hr GTT @ 20wks 11/03 APPT Asia ramos [facility] 2 16:43:51 Spinal muscular atrophy [id number] Completed Carrier - Not in contact with FOB. [place] ramos [facility] 2 16:43:51 Anxiety 48870586 Completed prozac Karina ramos [facility] 4 11:00:46 Nausea 736860121 Completed d/c zofran pump 11/08 per pt request Karina ramos [facility] 4 11:00:46 Postpart um hemorrha ge [id number] Completed hx of - 2017 with d&c Karina ramos [facility] 4 11:00:46 Normal pregnanc y in multigra jessy [id number] 23600 Completed 201907/05/2021 Encounte r for supervis ion of other normal pregnanc y, 3rd trimeste r;Record ed Elsewher e: No [facility]at [facility]: EHR Pediatric Psychologist yvrose: N Practi ce ID: 0001 Gigi lable Time: 10:45:00 AM Karina ramos [facility] 10:15:27 Gestatio n period, 37 weeks 16084482 Completed 201907/05/2021 37 weeks gestatio n of pregnanc y;Record ed Elsewher e: No Locat ion: [facility] S ource: EHR Pediatric Psychologist yvrose: N Practi ce ID: 0001 Gigi lable Time: 09:00:00 AM Karina ramos [facility] 10:15:[address] Concept Completed 201907/05/2021 Matern care for abnlt fetl hrt rate or rhym, 3rd tri, unsp;Rec orded Elsewher e: No Locat ion: [facility] S ource: EHR Pediatric Psychologist yvrose: N Practi ce ID: 0001 Gigi lable Time: 08:45:00 AM Karina ramos [facility] 10:15:29 Gestatio nal diabetes mellitus 55701512 Completed 201907/05/2021 Gestatio nal diabetes mellitus in pregnanc y, diet controll ed;Recor ded Elsewher e: No Locat ion: [facility] S ource: EHR Pediatric Psychologist yvrose: N Practi ce ID: 0001 Gigi lable Time: 11:45:00 AM Karina ramos [facility] 10:15:25 Gestatio n period, 38 weeks 67914356 Completed 201907/05/2021 38 weeks gestatio n of pregnanc y;Record ed Elsewher e: No Locat ion: [facility] S ource: EHR Pediatric Psychologist yvrose: N Practi ce ID: 0001 Gigi lable Time: 11:30:00 AM Karina ramos [facility] 10:15:13 Amenorrh ea 34020771 Completed 202007/10/2021 Tammi Jones null, [facility] 13:08:35 Pregnanc y 07375050 Completed 202003/29/2022 Emma Dykes null, [facility] 5 12:28:48 Pregnanc y 89884719 Completed 202304/22/2024 Emma Dykes null, [facility] 12:28:48 Headache 41748922 Active 2023 Karina Burroughs null, [facility] 16:19:28 Pregnanc y 62111093 Completed 202309/14/2025 Emma Dykes null, [facility] 12:28:48 Uncompli cated moderate persiste nt asthma 504216788 Completed 2024 albutero l prn Shawn Bradley MD [address], [place], [address], [facility] 13:08:36 Anxiety 49874301 Completed 2024 sertrali ne started 03/02/25 changed to prozac 10 on Shawn Bradley MD [address], [place], [address], [facility] 5 17:05:48 Nausea and vomiting 86771755 Completed 2024 Shawn Bradley MD [address], [place], [address], [facility] 13:20:27 Placenta circumva llata 2543075 Completed 2024 32wk growth Ryann ramos, [facility] 5 09:44:35 Frequent headache 086344592 Completed 2024 transpor t to [facility] 05/21, discharg e 05/23 MFM referral faxed 05/24 [facility] per KAJAL Pittman [facility] unable to see [...] than 2-3 times a week. Ryann ramos [facility] 5 10:55:26 Abnormal placenta affectin g manageme nt of mother 68695435 Completed 2024 MCI serial growth us Ryann ramos [facility] 5 10:46:25 Iron deficien cy anemia 12404370 Com[facility] venofer 200mg x1 HGB 10.6 Ryann ramos [facility] 5 15:21:25 Gestatio nal diabetes mellitus 65918802 Completed 2024 checking bs QID - ruled in GDM Referral faxed to [facility] 07/07 Ryann ramos [facility] 5 14:36:52 Notes:Order faxed to [facility] r access 08/10 for PICC line, and home health already caring for pt. Vladimir RDZ at [phone] Problem Notes None recorded. Procedures Surgical History Date Name Laterality Status Provider Name and Address Organization Details Recorded Time 025 SALPINGECTOMY, LAPAROSCOPIC (SURG) completed Not Available [facility] 09/06/2025 11:19:17 025 Date of Last Pap Smear completed Karina Burroughs [facility] 01/28/2025 11:19:42 024 Nexplanon Removal completed Shawn Bradley MD [address], [place], [address], [facility] 08/05/2024 15:09:58 024 Control Implant Insertion completed Anju Mcnamara CNM [address], [place], [address], [facility] 05/08/2024 17:59:34 024 cholecystectomy completed Karina Burroughs [facility] 03/31/2025 09:18:57 018 Dilation and Curettage completed Karina Burroughs [facility] 07/05/2021 10:17:50 Imaging Results None recorded. Procedure Notes None recorded. Medical Equipment None Reported. Allergies Allergen ID Allergen Name Allergen Category Reaction Reaction Severity Criticality Documentation Date Start Date Code Code System Note Provider Name and Address Organization Details Recorded Time 44455 terbutali ne medicatio n anaphylax is Not available Not available 01/27/20252021 02719 RxNorm Karina ramos, [facility] 16:19:27 46836 amoxicill in medicatio n Not available Not available Not available 09/10/2025 723 RxNorm Not Available [employer] - External Data Service - prod 16:39:37 51278 terbinafi ne medicatio n anaphylax is Not available [facility] 09/10/20252024 26469 RxNorm Not Available [employer] External Data Service - prod 16:40:54 Medications [...] Prescrib ed Elsewher e: Yes Loca tion: [facility] odify By: prabhjot Lee r DateTime : [...] n (supplie d by office) insert lot [id number] Exp 01/2026 Not Available Not Available Not Available 28 mg iron-800 mcg tablet 07/05 completed Prescrib ed Elsewher e: Yes Loca tion: [facility] odify By: prabhjot Lee r DateTime : 01/14/20 10:45:00 AM Not Available Not Available Not Available lidocaine 5 % topical ointment APPLY OINTMENT EXTERNAL LY TO RIBS THREE TIMES DAILY NEEDED 01/14 completed Not Available Not Available Not Available 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 08/11/2025 15:17:18 Social History Question Answer Notes LastModified by Organizat ion Details LastModified Time Tobacco Smoking Status Former Smoker Karina ramos, [facility] 07/05/2021 09:06:21 If You Are , What Was Your Level Of Alcohol Consumption Prior To ? Occasional [email or web address] Information not available 03/31/2025 Are You Blind Or Do You Have Difficulty Seeing? No [email or web address] Information not available 07/05/2021 What Is Your Level Of Caffeine Consumption? Heavy Information not available 07/05/2021 In The 14 Days Before Symptom Onset, Have You Had Close Contact With A Laboratory-confir med COVID-19 While That Case Was Ill? No [email or web address] Information not available 07/05/2021 In The 14 Days Before Symptom Onset, Have You Had Close Contact With A Person Who Is Under Investigation For COVID-19 While That Person Was Ill? No [email or web address] Information not available 07/05/2021 Have You Been To An Area Known To Be High Risk For COVID-19? No [email or web address] Information not available 07/05/2021 Are You Deaf Or Do You Have Serious Difficulty Hearing? No Information not available 07/05/2021 What Type Of Diet Are You Following? REGULAR [email or web address] Information not available 07/05/2021 Which Illicit Or Recreational Drugs Have You Used? Marijuana [email or web address] Information not available 07/05/2021 Have You Ever Been Counseled For Unhealthy Alcohol Use? No [email or web address] Information not available 07/05/2021 Do You Use Your Seat Belt Or Car Seat Routinely? Yes [email or web address] Information not available 07/05/2021 Do You Have Smoke And Carbon Monoxide Detectors In Your Home? Yes Information not available 07/05/2021 Do You Use Sunscreen Routinely? Yes [email or web address] Information not available 07/05/2021 Has Tobacco Cessation Counseling Been Provided? No [email or web address] Information not available 07/05/2021 Have You Used IV Drugs? No [email or web address] Information not available 07/05/2021 Do You Have Difficulty Walking Or Climbing Stairs? No [email or web address] Information not available 12/06/2021 Sex: Unknown Functional Status Question Answer Note LastModified by Organizat ion Details LastModified Time Do you use any illicit or recreational drugs? Yes [email or web address] Information not available 07/05/2021 Do you or have you ever used any other forms of tobacco or nicotine? Yes [email or web address] Information not available 07/05/2021 What is your level of alcohol consumption? None [email or web address] Information not available 03/31/2025 Do you or have you ever used smokeless tobacco? Never used smokeless tobacco [email or web address] Information not available 07/05/2021 Are you able to walk independently without assistance or assistive devices? [email or web address] Information not available 07/05/2021 Are you able to care for yourself independently? Yes [email or web address] Information not available 12/06/2021 Do you have difficulty dressing, bathing, grooming, or toileting? No [email or web address] Information not available 12/06/2021 Do you or have you ever used e-cigarettes or vape? Current user of electronic cigarettes [email or web address] Information not available 07/05/2021 What is your exercise level? Occasional [email or web address] Information not available 07/05/2021 Mental Status Question Answer Note LastModified by Organization D etails LastModified Time Do you feel stressed (tense, restless, nervous, or anxious, or unable to sleep at night)? [id number] [email or web address] Information not available 07/05/2021 Family History Relationship Description Onset Age of this Age Resolved Age Notes LastModified by Organization Details LastModified Time Father No current problems or disability [email or web address] Not available 05/2021 09:06:31 Mother No current problems or disability [email or web address] Not available 05/2021 09:06:31 Medical History Condition [...] ICD10 Code Diagnosis IMO Codes Diagnosis Note [id number] [facility] [address],[place] [address] 07/21/2025 09:28:54 07/21/2025 12:36:06 Pain in pelvis 42864563 R10.2 799222 Gestation period, 32 weeks 9510770 Z3A.32 5947060 [id number] Shawn Bradley MD [facility] [address],[place] [address] 08/04/2025 14:02:59 08/04/2025 15:06:33 Gestational diabetes mellitus 75700982 O24.410 O43.103 O43.113 Z3A.34 45107279 [id number] [facility] [address] [place] [address] 08/04/2025 14:21:57 08/04/2025 15:26:03 Gestation period, 34 weeks 58815311 Z3A.34 2449179 Pruritic d isorder of skin 0744727033 L29.9 80261 plan labs today, ursadiol BID [id number] [facility] [address] [place] [address] 08/11/2025 14:51:38 08/11/2025 17:16:44 Gestational diabetes mellitus 18620095 O24.414 02867503 560024 [facility] [address] [place] [address] 08/11/2025 16:25:59 08/11/2025 17:46:32 Gestational diabetes mellitus 72492093 O24.414 [id number] Health Concerns Section Related Observation LastModified by Organization Detai ls LastModified Time None Recorded Concern Status LastModified by Organization Details LastModified Time None Recorded Payers Encounter Date Sequence Insurance Name Policy Number Policy Roberts Covered Member ID Roberts Member ID Guarantor Name 08/11/2025 1 [employer] (MEDICAID HMO) [id number] Yuni Mejia [id number] Yuni Mejia Notes Date Note Type Note Provider Name and Address Organization Details Recorded Time 08/11/2025 text/html Generic HPI TemplateReported by Patient Ajnu Genie Mcnamara CNM [address], [place], [address], [place] [facility] 08/11/2025 17:10:44 OBGyn Episode Ob Episode Information Episode Created Date Number of Fetuses Patient Bloodtype Patient rh Status Prepregnancy Weight lbs Domestic Partner Domestic Partner Phone Father Name Nursing Agency Manager Status 03/02/20 25 1 B Positive 164 CLOSED Fetus Data First Name Last Name Admitted to NICU Weight (g) Sex Living Outcome Pediatric Complications Fetus ID Race Codes Race Delivery Type Ziah false 4025.62 9 F true Full Term 33074 Vaginal Delivery Problems Problem Notes SDH form completed 5GI consult Tachycardia Holter monitor 72 order- pt sent back on 03-27-25 Cardiology referral faxed per Dr Martínez office calling pt 04/21 to schedule consult scheduled 05/11 11:15AM Problem Name Start Date End Date Resolution Snomed Code Not e Uncomplicated moderate persistent asthma 03/02/2025 686609927 albuterol prn Abnormal placenta affecting management of mother 05/04/2025 50585401 [facility]CI serial grow th us Iron deficiency anemia 05/25/2025 41195922 [facility] tx ven[place] 200mg x1 HGB 10.6 Nausea and vomiting 03/02/2025 81000240 Anxiety 03/02/2025 67886030 sertralin e started 03/02/25 changed to prozac 10 on Gestational diabetes mellitus 07/08/2025 51798251 checking bs QID - ruled in GDM Referral faxed to [facility] 07/07 Frequent headache 05/03/2025 [id number] [place] to [facility] 05/21, discharge 05/23 MF referral faxed 05/24 [facility] Neurology consult pending per Toya RN [facility] unable to see pt due to insurance 05[facility]25[facility] 07/05/25 Level US & Consult (see MFM consult zayas recommendations ) regimen prn Imitrex 50mg for acute migraine, vitamin B2 (Riboflavin) 400mg, Coenzyme q10 300mg and magnesium oxide 200 to 600mg daily. minimize use of Excedrin or Tylenol to no more than 2-3 times a week. 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/2025 0725565 32wk growth us Jun Calculation Initial Jun [...] Weight in lbs Pre/Post Dialysis Refused Weight 158.320542048104 BP Diastolic BP Location Tested BP Systolic [...] Weight in lbs Pre/Post Dialysis Refused Weight 158.709603607964 BP Diastolic BP Location Tested BP Systolic [...] Weight in lbs Pre/Post Dialysis Refused Weight 162.777084356125 BP Diastolic BP Location Tested BP Systolic BP Type 78 123 Fetus Heart Rate Present A 148 Fetus Movement A Yes Comments Patient is having having ronny n, cramping and vaginal discharge. went to ed exam done cultures and rx sent, ?FM, await yardmaster results rfilled zofran, precautions and education f/u [...] Type Weight in lbs Pre/Post Dialysis Refused 168.709555595576 BP Diastolic BP Location Tested BP Systolic [...] Type Weight in lbs Pre/Post Dialysis Refused 169.357653250897 BP Diastolic BP Location Tested BP Systolic [...] Weight in lbs Pre/Post Dialysis Refused Weight 175.050697371265 BP Diastolic BP Location Tested BP Systolic [...] Weight in lbs Pre/Post Dialysis Refused Weight 182.172763993141 BP Diastolic BP Location Tested BP Systolic [...] Weight in lbs Pre/Post Dialysis Refused Weight 181.147942549854 BP Diastolic BP Location Tested BP Systolic BP Type 73 L arm 131 sitting Fetus Heart Rate Present Fetus Movement A Yes Comments viral URI testied neg at urg ent care, nausea resolved, efw 68%, +FM plan education and precautions f/u 2 weeks diagnosed GDM, plan furnace charger, gave list reviewed protein vs carb Flowsheet Date 07/21/2025 Gibson Score Blood Edema Fundus Height Fundus Units Glucose Ketones Leukocytes Nitrite Labor Signs Protein Cervic Dilation Cervic Effacement Cervic Station Type Weight in lbs Pre/Post Dialysis Refused Weight 181.515294053706 BP Diastolic BP Location Tested BP Systolic BP Type 78 L arm 127 sitting Fetus Heart Rate Present A 150 Fetus Movement A Yes Comments rpt urine culture +FM review ed blood sugars, meets with furnace charger today, precautions and education f/u 2 weeks [...] Weight in lbs Pre/Post Dialysis Refused Weight 181.574016511550 BP Diastolic BP Location Tested BP Systolic [...] Weight in lbs Pre/Post Dialysis Refused Weight 183.644304819479 BP Diastolic BP Location Tested BP Systolic [...] Type Weight in lbs Pre/Post Dialysis Refused 184.455915960017 BP Diastolic BP Location Tested BP Systolic [...] Type Weight in lbs Pre/Post Dialysis Refused 184.996428974143 BP Diastolic BP Location Tested BP Systolic [...] Type Weight in lbs Pre/Post Dialysis Refused 184.250865916023 BP Diastolic BP Location Tested BP Systolic [...] Weight in lbs Pre/Post Dialysis Refused Weight 184.581779958978 BP Diastolic BP Location Tested BP Systolic [...] Weight in lbs Pre/Post Dialysis Refused Weight 164.867567080684 BP Diastolic BP Location Tested BP Systolic [...]
--- OUTSIDE RECORDS SUMMARY | 2025-09-16 17:54 | XMS_ITS ---
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 Name Role Phone MARK Fernandez Attending Unavailable [...] URINALYSIS w/Microscopy/C&S if indicated - Collect Date/Time: 09/28/2023 07:50 [facility] [id number] [place], [place], [phone] LOINC: 43826-0 Test Value Unit Reference Range Code Code System Flag UR SOURCE UNKNOWN 22787-2 LOINC COLOR YELLOW YELLOW 5778-6 LOINC CLARITY SL CLOUDY CLEAR 63635-5 LOINC SPEC GRAVITY 1.020 1.000-1.030 5811-5 LOINC PH 7.0 5.0 - 6.5 5803-2 LOINC LEUK EST TRACE NEGATIVE 5799-2 LOINC A NITRATE NEGATIVE NEGATIVE PROTEIN NEGATIVE NEGATIVE 5804-0 LOINC GLUCOSE NEGATIVE NEGATIVE 84804-2 LOINC KETONES NEGATIVE NEGATIVE 69662-5 LOINC UROBILINOGEN 1.0 NEGATIVE 5818-0 LOINC BILIRUBIN NEGATIVE NEGATIVE 09751-5 LOINC BLOOD NEGATIVE NEGATIVE 45508-6 LOINC WBC 2-5 0 - 2 31380-7 LOINC RBC 0-2 0 - 2 93322-7 LOINC EPITHELIAL MODERATE RARE-FEW 26761-3 LOINC A ~ COMMENT Prob. contamination due to improper collec ~~ COMMENT RECOLLECT REQUESTED BACTERIA 2+ NONE SEEN 88079-5 LOINC A MUCUS 1+ NONE SEEN 8247-9 LOINC YEAST NOT PRESENT NOT PRESENT 83637-2 LOINC CASTS NONE SEEN 36514-2 LOINC CRYSTALS NONE SEEN 29423-9 LOINC CULTURE? NO 8251-1 LOINC DIAGNOSIS N/A BETA HCG-QUANT - Collect Neil e/Time: 09/28/2023 07:40 [facility] [id number] [place], [place], [id number] LOINC: 80422-1 Test Value Unit Reference Range Code Code System Flag BETA HCG-QUANT 187438.00 mIU/mL L=0.00 H=6.00 83004-0 LOINC H Social History Type Status Start Date End Date Code Code Syst em Smoking History Never smoker (Never Smoked) 316553837 SNOMED CT Sex Female Assessment You had [...] 6002 SNOMED-CT UNSPECIFIED ABDOMINAL PAIN active 215 78134 SNOMED-CT Allergies and Adverse Reactions Allergy Substance Reaction Severity Start Date Concern Status Co de Code System AMOXICILLIN Active 723 RxNorm TERBUTALINE Active 91634 RxNorm Plan of Treatment Stress Test Treadmill 01/21/2025 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
--- OUTSIDE RECORDS SUMMARY | 2025-09-16 17:54 | XMS_ITS ---
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
--- OUTSIDE RECORDS SUMMARY | 2025-09-16 17:54 | XMS_ITS | Continuity of Care Document ---
Author Organization [facility], [facility] Address [address] [place] [address] [place] [address] Care Team Providers Care Senior Patient Account Representative Name Role Phone CARLOS ESTRADA Primary Care Provider [phone] Assessment No assessment recorded. Plan of Treatment Reminders Order Date Submit Date Provider Last Modified By Organization Details Last Modified Time Details Appointments None recorded. Lab None recorded. Referral None recorded. Procedures None recorded. Surgeries None recorded. Imaging US, obstetric, biophysical profile + non-stress test 2024 025 [facility], [address], [place], [address], 18:52:06 Medication Orders None recorded. Patient TargetsNo targets recorded. Patient InstructionsNo instructions recorded. Reason for Referral None Reported. Results Created Date Observation Date Name Description Value Unit Range Abnormal Flag Note LastModifiedBy Organization Detail LastModifiedTime 03/06/2003/06/2025 [UNIT Y] ANEUP LOIDY NIPT fraction 5.7% normal Not Available [facility] [address], [place], [address], 03/06/2025 03:58:26 03/06/20 25 03/06/2025 [UNIT Y] ANEUP LOIDY NIPT sex chromosome aneuploidy NOT DETECT ED normal Not Available [facility] [address], [place], [address], 03/06/2025 03:58:26 03/06/20 25 03/06/2025 [UNIT Y] ANEUP LOIDY NIPT monosomy X LOW RISK <1 in 10,000 normal Not Available [facility] [address], [place], [address], 03/06/2025 03:58:26 03/06/20 25 03/06/2025 [UNIT Y] ANEUP LOIDY NIPT trisomy 13 LOW RISK <1 in 10,000 normal Not Available [facility] [address], [place], [address], 03/06/2025 03:58:26 03/06/20 25 03/06/2025 [UNIT Y] ANEUP LOIDY NIPT trisomy 18 LOW RISK <1 in 10,000 normal Not Available [facility] [address], [place], [address], 03/06/2025 03:58:26 03/06/20 25 03/06/2025 [UNIT Y] ANEUP LOIDY NIPT trisomy 21 LOW RISK <1 in 10,000 normal Not Available [facility] [address], [place], [address], 03/06/2025 03:58:26 03/06/20 25 03/06/2025 [UNIT Y] ANEUP LOIDY NIPT sex FEMALE normal Not Available [facility] [address], [place], [address], 03/06/2025 03:58:26 03/06/20 25 03/06/2025 [UNIT Y] ANEUP LOIDY NIPT gestation SINGLE TON normal Not Available [facility] [address], [place], [address], 03/06/2025 03:58:26 03/06/20 25 03/06/2025 [UNIT Y] ANEUP LOIDY NIPT for detailed report, see pdf See PDF normal Not Available [facility] [address], [place], [address], 03/06/2025 03:58:26 03/02/2003/02/2025 CULTU RE: URINE result report SEE RESULT S BELOW Test: Cultu re: Urine Speci men Sourc e: Urine - Clean Catch Speci men Type: Urine Speci men Date: 1455 Resul t Date: 025 2138 Resul t Statu s: Final resul t Abnor mal: No Resul ting Lab: [facility] [address] [facility] [address] Tel: CULTU RE ----- ----- ----- --- No growt h in 1 day (dete ction level of 10,00 0 colon ies / ml.) Not Available [facility] (Lab) [address] [facility], [place], [address], 03/03/2025 22:42:27 03/12/2003/12/2025 CULTU RE: URINE result report SEE RESULT S BELOW Test: Cultu re: Urine Speci men Sourc e: Urine - Clean Catch Speci men Type: Urine Speci men Date: 2024 1600 Resul t Date: 2024 0610 Resul t Statu s: Final resul t Abnor mal: No Resul ting Lab: [facility] [address] [facility] [address] Tel: CULTU RE ----- ----- ----- --- No growt h in 1 day (dete ction level of 10,00 0 colon ies / ml.) Not Available [facility] (Lab) [address] [place], [address], 03/14/2025 07:15:03 03/12/2003/12/2025 urina lysis , dipst ick Leukocytes ++ Not Available [address], [place], [address], 03/12/2025 16:45:06 03/12/2003/12/2025 urina lysis , dipst ick Protein + Not Available [facility] [address], [place], [address], 03/12/2025 16:45:06 03/12/20 25 03/12/2025 urina lysis , dipst ick pH 5 Not Available [facility] [address], [place], [address], 03/12/2025 16:45:06 03/12/20 25 03/12/2025 urina lysis , dipst ick Blood trace Not Available [facility] [address], [place], [address], 03/12/2025 16:45:06 03/12/20 25 03/12/2025 urina lysis , dipst ick Specific [place] 1.015 Not Available [facility] [address], [place], [address], 03/12/2025 16:45:06 03/12/20 25 03/12/2025 urina lysis , dipst ick Ketone +++ Not Available [facility] [address], [place], [address], 03/12/2025 16:45:06 03/31/20 25 03/31/2025 TSH, REFLE X FREE T4 TSH 0.42 uIU/m L 0.30-5 .33 Not Available [facility] (Lab) [address] [facility], [place], [address], 04/01/2025 03:05:12 03/31/20 25 03/31/2025 CULTU RE: URINE result report SEE RESULT S BELOW Test: Cultu re: Urine Speci men Sourc e: Urine Voide d Speci men Type: Urine Speci men Date: 1710 Resul t Date: 6 Resul t Statu s: Final resul t Abnor mal: No Resul ting Lab: [facility] [address] [facility] [address] Tel: [phone] CULTU RE ----- ----- ----- --- Cultu re resul t (>=3 organ isms prese nt) indic ates possi ble conta minat ion. Repea t cultu re if sympt oms indic ate. Not Available [facility] (Lab) [address] [facility], [place], [address], 04/01/2025 23:59:19 03/31/20 25 03/31/2025 urina lysis , dipst ick Leukocytes +1 Not Available [address], [place], [address], 03/31/2025 09:23:13 03/31/20 25 03/31/2025 urina lysis , dipst ick Nitrite normal Not Available [facility] [address], [place], [address], 03/31/2025 09:23:13 03/31/20 25 03/31/2025 urina lysis , dipst ick Urobilinogen normal Not Available [facility] david [address], [place], [address], 03/31/2025 09:23:13 03/31/20 25 03/31/2025 urina lysis , dipst ick Protein trace Not Available [facility] [address], [place], [address], 03/31/2025 09:23:13 03/31/20 25 03/31/2025 urina lysis , dipst ick pH 5 Not Available [facility] [address], [place], [address], 03/31/2025 09:23:13 03/31/20 25 03/31/2025 urina lysis , dipst ick Specific [place] 1.020 [facility] Available [facility] [address], [place], [address], 03/31/2025 09:23:13 03/31/20 25 03/31/2025 urina lysis , dipst ick Ketone normal Not Available [facility] [address], [place], [address], 03/31/2025 09:23:13 03/31/20 25 03/31/2025 urina lysis , dipst ick Bilirubin normal Not Available [facility] [address], [place], [address], 03/31/2025 09:23:13 03/31/20 25 03/31/2025 urina lysis , dipst ick Glucose normal Not Available [facility] [address], [place], [address], 03/31/2025 09:23:13 03/31/20 25 03/31/2025 urina lysis , dipst ick Appearance normal Not Available [facility] [address], [place], [address], 03/31/2025 09:23:13 03/31/20 25 03/31/2025 urina lysis , dipst ick Color normal Not Available [facility] [address], [place], [address], 03/31/2025 09:23:13 04/01/20 25 04/01/2025 [facility], DENIS bacterial vaginosis (bv), tma Negati ve negati ve Not Available [facility] (Lab) [address] [place], [address], 04/02/2025 14:08:45 04/01/20 25 04/01/2025 [facility], DENIS mekhi species, tma Negati ve negati ve Not Available [facility] (Lab) [address] [place], [address], 04/02/2025 14:08:45 04/01/20 25 04/01/2025 WOMEN 'S [facility] H SWAB PLUS, DENIS mekhi glabrata, tma Negati ve negati ve Not Available [facility] (Lab) [address] [place], [address], 04/02/2025 14:08:45 04/01/20 25 04/01/2025 [facility], DENIS trichomonas vaginalis, tma Negati ve negati ve Not Available [facility] (Lab) [address] [place], [address], 04/02/2025 14:08:45 04/01/20 25 04/01/2025 [facility], DENIS chlamydia trachomatis, PCR Negati ve negati ve Not Available [facility] (Lab) [address] [place], [address], 04/02/2025 14:08:45 04/01/20 25 04/01/2025 [facility], DENIS neisseria gonorrhoeae, PCR Negati ve negati ve Bacte rial vagin osis detec ts the follo wing bacte sangeeta assoc iated with bacte rial vagin osis (BV): Lacto bacil noemi (L. gasse ri, L. crisp atus and L. jense jerda), Gardn erell a vagin sofía, and Atopo [...] metho d. Tests for Radha da glabr anaay, Trich omona s vagin sofía, Chlam ydia trach omati s, and Neiss eria gonor rhoea e are also inclu ded in this panel . Not Available [facility] (Lab) [address] , [place], [address], 04/02/2025 14:08:45 04/22/2004/22/2025 CULTU RE: URINE result report SEE RESULT S BELOW Test: Cultu re: Urine Speci men Sourc e: Urine Voide d Speci men Type: Urine Speci men Date: 2024 1314 Resul t Date: 2024 0322 Resul t Statu s: Final resul t Abnor mal: No Resul ting Lab: [facility] [address] [facility] [address] Tel: CULTU RE ----- ----- ----- --- No growt h in 1 day (dete ction level of 10,00 0 colon ies / ml.) Not Available [facility] (Lab) [address], [place], [address], 04/24/2025 04:28:01 04/22/20 25 04/22/2025 urina lysis , dipst ick Leukocytes + Not Available [facility] [address], [place], [address], 04/22/2025 10:01:51 04/22/20 25 04/22/2025 urina lysis , dipst ick Protein + Not Available [facility] [address], [place], [address], 04/22/2025 10:01:51 04/22/20 25 04/22/2025 urina lysis , dipst ick pH 8 Not Available [facility] [address], [place], [address], 04/22/2025 10:01:51 04/22/20 25 04/22/2025 urina lysis , dipst ick Blood + Not Available [facility] [address], [place], [address], 04/22/2025 10:01:51 04/22/20 25 04/22/2025 urina lysis , dipst ick Specific [place] 1.010 Not Available [facility] [address], [place], [address], 04/22/2025 10:01:51 04/22/20 25 04/22/2025 urina lysis , dipst ick Ketone + Not Available [facility] [address], [place], [address], 04/22/2025 10:01:51 06/23/2006/23/2025 HEMAT OCRIT (HCT) HCT 35.6 % (based on docume nted legal sex) 34.0-4 5.0 Not Available [facility] (Lab) [address] [facility], [place], [address], 06/24/2025 11:45:32 06/23/20 25 06/23/2025 HEMOG LOBIN (HGB) HGB 11.1 g/dL (based on docume nted legal sex) 11.6-1 5.4 low Not Available [facility] (Lab) [address] [facility], [place], [address], 06/24/2025 11:45:32 06/23/20 25 06/23/2025 GTT - GESTA ROLAND L SCREE N, ACOG OB glucose, 1 hour screen 180 mg/dL 70-135 high Not Available [facility] (Lab) [address] [place], [address], 06/24/2025 11:45:33 06/23/20 25 06/23/2025 HIV 1/2 ANTIG EN/AN TIBOD Y, REFLE X CONFI RMATI ON HIV antigen/anti body Nonrea ctive nonrea ctive HIV-1 antig en and HIV-1 /HIV- 2 antib odies were not detec greg. No labor atory evide nce of HIV infec tion. Not Available [facility] (Lab) [address] [facility], [place], [address], 06/24/2025 11:45:33 06/23/20 25 06/23/2025 RPR SCREE N, REFLE X TITER /CONF IRMAT ION RPR qualitative Nonrea ctive nonrea ctive Not Available [facility] (Lab) [address] [facility], [place], [address], 06/24/2025 11:45:34 07/21/20 25 07/21/2025 CULTU RE: URINE result report SEE RESULT S BELOW Test: Cultu re: Urine Speci men Sourc e: Urine - Clean Catch Speci men Type: Urine Speci men Date: 2024 1024 Resul t Date: 2024 0252 Resul t Statu s: Final resul t Abnor mal: No Resul ting Lab: [facility] [address] [facility] [address] Tel: CULTU RE ----- ----- ----- --- No growt h in 1 day (dete ction level of 10,00 0 colon ies / ml.) Not Available [facility] (Lab) [address] [facility], [place], [address], 07/23/2025 03:57:01 07/21/20 25 07/21/2025 urina lysis , dipst ick Leukocytes ++ Not Available [address], [place], [address], 07/21/2025 11:03:04 07/21/20 25 07/21/2025 urina lysis , dipst ick Nitrite neg Not Available [facility] [address], [place], [address], 07/21/2025 11:03:04 07/21/20 25 07/21/2025 urina lysis , dipst ick Urobilinogen neg Not Available [facility] [address], [place], [address], 07/21/2025 11:03:04 07/21/20 25 07/21/2025 urina lysis , dipst ick Protein + Not Available [facility] [address], [place], [address], 07/21/2025 11:03:04 07/21/20 25 07/21/2025 urina lysis , dipst ick pH 5 Not Available [facility] [address], [place], [address], 07/21/2025 11:03:04 07/21/20 25 07/21/2025 urina lysis , dipst ick Specific [place] 1.030 Not Available [facility] nita [address], [place], [address], 07/21/2025 11:03:04 07/21/20 25 07/21/2025 urina lysis , dipst ick Ketone +++ Not Available [facility] [address], [place], [address], 07/21/2025 11:03:04 07/21/20 25 07/21/2025 urina lysis , dipst ick Bilirubin neg Not Available [facility] [address], [place], [address], 07/21/2025 11:03:04 07/21/20 25 07/21/2025 urina lysis , dipst ick Glucose neg Not Available [facility] [address], [place], [address], 07/21/2025 11:03:04 07/21/20 25 07/21/2025 urina lysis , dipst ick Appearance cloudy Not Available [facility] [address], [place], [address], 07/21/2025 11:03:04 07/21/20 25 07/21/2025 urina lysis , dipst ick Color dark Not Available [address], [place], [address], 07/21/2025 11:03:04 08/04/20 25 08/04/2025 CMP(C OMPRE HENSI VE METAB OLIC PANEL ) sodium 138 mmol/ L 133-14 6 Not Available [facility] (Lab) [address] [facility], [place], [address], 08/05/2025 13:39:18 08/04/20 25 08/04/2025 CMP(C OMPRE HENSI VE METAB OLIC PANEL ) potassium 4.0 mmol/ L 3.5-5. 1 Not Available [facility] (Lab) [address] [facility], [place], [address], 08/05/2025 13:39:18 08/04/20 25 08/04/2025 CMP(C OMPRE HENSI VE METAB OLIC PANEL ) chloride 105 mmol/ L 98-107 Not Available [facility] (Lab) [address] [facility], [place], [address], 08/05/2025 13:39:18 08/04/20 25 08/04/2025 CMP(C OMPRE HENSI VE METAB OLIC PANEL ) carbon dioxide 25 mmol/ L 21-31 Not Available [facility] (Lab) [address] [facility], [place], [address], 08/05/2025 13:39:18 08/04/20 25 08/04/2025 CMP(C OMPRE HENSI VE METAB OLIC PANEL ) anion gap 8 mmol/ L 4-13 Not Available [facility] (Lab) [address] [place], [address], 08/05/2025 13:39:18 08/04/20 25 08/04/2025 CMP(C OMPRE HENSI VE METAB OLIC PANEL ) blood urea nitrogen 10 mg/dL 7-25 Not Available [facility] (Lab) [address] [facility], [place], [address], 08/05/2025 13:39:18 08/04/20 25 08/04/2025 CMP(C OMPRE HENSI VE METAB OLIC PANEL ) creatinine 0.41 mg/dL 0.60-1 .30 low Not Available [facility] (Lab) [address] [facility], [place], [address], 08/05/2025 13:39:18 08/04/20 25 08/04/2025 CMP(C OMPRE HENSI VE METAB OLIC PANEL ) egfrcr (CKD-epi 2020) >90 mL/mi n/1.7 3_m2 >=60 Not Available [facility] (Lab) [address] [facility], [place], [address], 08/05/2025 13:39:18 08/04/20 25 08/04/2025 CMP(C OMPRE HENSI VE METAB OLIC PANEL ) calcium 8.9 mg/dL 8.3-10 .5 Not Available [facility] (Lab) [address] [facility], [place], [address], 08/05/2025 13:39:18 08/04/20 25 08/04/2025 CMP(C OMPRE HENSI VE METAB OLIC PANEL ) glucose 116 mg/dL 70-100 high Not Available [facility] (Lab) [address] [facility], [place], [address], 08/05/2025 13:39:18 08/04/20 25 08/04/2025 CMP(C OMPRE HENSI VE METAB OLIC PANEL ) protein, total 6.1 g/dL 6.4-8. 3 low Not Available [facility] ([facility]) [address] [facility], [place], [address], 08/05/2025 13:39:18 08/04/20 25 08/04/2025 CMP(C OMPRE HENSI VE METAB OLIC PANEL ) albumin 3.5 g/dL 3.5-5. 0 Not Available [facility] (Lab) [address] [facility], [place], [address], 08/05/2025 13:39:18 08/04/20 25 08/04/2025 CMP(C OMPRE HENSI VE METAB OLIC PANEL ) ALT 11 units /L 9-43 Not Available [facility] (Lab) [address] [facility], [place], [address], 08/05/2025 13:39:18 08/04/20 25 08/04/2025 CMP(C OMPRE HENSI VE METAB OLIC PANEL ) alkaline phosphatase 98 units /L 34-104 Not Available [facility] (Lab) [address] [facility], [place], [address], 08/05/2025 13:39:18 08/04/20 25 08/04/2025 CMP(C OMPRE HENSI VE METAB OLIC PANEL ) AST 15 units /L 13-39 Not Available [facility] ([facility]) [address] [facility], [place], [address], 08/05/2025 13:39:18 08/04/2008/04/2025 CMP(C OMPRE HENSI VE METAB OLIC PANEL ) bilirubin, total 0.3 mg/dL 0.2-1. 2 Not Available [facility] ([facility]) [address] [facility], [place], [address], 08/05/2025 13:39:18 08/04/2008/04/2025 BILE ACIDS , TOTAL bile acids, total 4 umol/ L 0-10 Test Perfo rmed by: Luke hernández rn [facility] [address] Not Available [facility] ([facility]) [address] [facility], [place], [address], 08/05/2025 13:39:19 03/02/20 25 03/02/2025 US, obste tric, nucha l trans lucen cy No observ ation record ed. [email or web address] [facility] [address], [place], [address], 03/02/2025 13:35:30 03/02/20 25 03/02/2025 US, obste tric, nucha l trans lucen cy No observ ation record ed. [email or web address] [address] [address], [place], [address], 03/03/2025 14:08:39 03/08/20 25 03/08/2025 US, obste tric, 1st trime ster No observ ation record ed. [email or web address] [facility] [address], [place], [address], 03/08/2025 12:22:22 03/08/20 25 03/08/2025 US, obste tric, 1st trime ster No observ ation record ed. [email or web address] [address], [place], [address], 03/10/2025 15:03:13 04/01/20 25 03/24/2025 qamar r monit or No observ ation record ed. [address] [facility], [place], [address], 04/08/2025 12:36:45 04/01/20 25 03/22/2025 qamar r monit or No observ ation record ed. [address] (Pulmonary) [address] [place] [address] [place] [address], [address], 04/06/2025 08:59:34 04/20/20 25 04/20/2025 US, obste tric, limit ed No observ ation record ed. [email or web address] [facility] [address], [place], [address], 04/20/2025 17:39:30 04/20/20 25 04/20/2025 US, obste tric, follo w-up No observ ation record ed. [email or web address] [address], [place], [address], 04/23/2025 08:32:54 04/28/20 25 04/28/2025 US, obste tric, 2nd or 3rd trime ster No observ ation record ed. [email or web address] [facility] [address], [place], [address], 04/28/2025 17:48:42 04/28/20 25 04/28/2025 US, obste tric, 2nd or 3rd trime ster No observ ation record ed. [address], [place], [address], 05/04/2025 22:16:11 05/07/20 25 05/07/2025 non-s tress test No observ ation record ed. [email or web address] [id number] [facility] [address], [place], [address], 05/28/2025 13:33:54 05/21/2005/21/2025 CT, head + brain , w/o contr ast No observ ation record ed. [address], [place], [address], 05/24/2025 13:48:57 05/28/20 25 05/28/2025 US, obste tric, follo w-up No observ ation record ed. [email or web address] [facility] [address], [place], [address], 05/28/2025 17:32:34 05/28/2005/28/2025 US, obste tric, follo w-up No observ ation record ed. [email or web address] [address], [place], [address], 06/01/2025 15:13:13 08/12/06/07/2025 US, obste tric, follo w-up No observ ation record ed. [facility] [address] [facility], [place], [address], 06/15/2025 10:53:46 07/07/20 25 07/07/2025 US, obste tric, follo w-up No observ ation record ed. [email or web address] [facility] [address], [place], [address], 07/07/2025 13:18:01 07/07/2007/07/2025 US, obste tric, follo w-up No observ ation record ed. [email or web address] [address], [place], [address], 07/07/2025 11:29:37 08/04/20 25 08/04/2025 US, obste tric, follo w-up No observ ation record ed. [email or web address] [facility] [address], [place], [address], 08/04/2025 15:08:50 08/04/20 25 08/04/2025 US, obste tric, follo w-up No observ ation record ed. [address], [place], [address], 08/06/2025 10:41:50 08/11/2008/11/2025 non-s tress test No observ ation record ed. [email or web address] [facility] [address], [place], [address], 08/11/2025 17:37:52 08/11/20 non-s tress test No observ ation record ed. [email or web address] [facility] [address], [place], [address], 08/11/2025 17:38:11 08/15/2008/15/2025 non-s tress test No observ ation record ed. [place] [id number] [facility] [address], [place], [address], 08/21/2025 10:18:57 08/15/2008/15/2025 US, obste tric, bioph ysica l profi le No observ ation record ed. [place] [id number] [facility] [address], [place], [address], 08/17/2025 10:50:53 08/18/2008/18/2025 US, obste tric, bioph ysica l profi le + non-s tress test No observ ation record ed. [email or web address] [facility] [address], [place], [address], 08/18/2025 10:21:39 08/18/2008/18/2025 US, obste tric, bioph ysica l profi le + non-s tress test No observ ation record ed. [email or web address] [address], [place], [address], 08/18/2025 10:35:44 08/18/2008/18/2025 non-s tress test No observ ation record ed. [email or web address] [facility] [address], [place], [address], 08/18/2025 17:34:03 08/18/20 non-s tress test No observ ation record ed. [email or web address] [facility] [address], [place], [address], 08/18/2025 16:06:09 08/25/2008/25/2025 US, obste tric, bioph ysica l profi le + non-s tress test No observ ation record ed. [email or web address] [facility] [address], [place], [address], 08/25/2025 18:52:06 08/25/2008/25/2025 US, obste tric, follo w-up No observ ation record ed. [email or web address] [address], [place], [address], 08/25/2025 15:47:28 08/25/20 25 08/25/2025 non-s tress test No observ ation record ed. [email or web address] [address], [place], [address], 08/25/2025 18:12:15 08/25/20 non-s tress test No observ ation record ed. [email or web address] [address], [place], [address], 08/25/2025 17:21:19 08/30/20 25 08/30/2025 non-s tress test No observ ation record ed. [email or web address] [address], [place], [address], 09/15/2025 15:26:49 09/01/20 25 09/01/2025 non-s tress test No observ ation record ed. [email or web address] [id number] [facility] [address], [place], [address], 09/13/2025 11:32:22 09/01/20 25 09/01/2025 [place], obste tric No observ ation record ed. [email or web address] [id number] [facility] [address], [place], [address], 09/02/2025 15:56:01 09/01/20 25 09/01/2025 non-s tress test No observ ation record ed. [email or web address] [id number] [facility] [address], [place], [address], 09/02/2025 14:32:38 09/16/2021 0909/16/2025 imagi ng/di agnos tic resul t No observ ation record ed. [facility] [address], [place], [address], 09/16/2025 18:07:05 Result Notes None recorded. Problems Name Problem SNOMED Code Status Onset Date Resolution Date Notes Provider Name and Address Organization Details Recorded Time Hypereme sis 026509844 Completed phenerga n now prn [place] ramos [facility] 2 16:43:51 Anxiety in pregnanc y [id number] Completed will continue to monitor [facility] ramos [facility] 2 16:43:51 Past pregnanc y history of gestatio nal diabetes mellitus [id number] Completed Early 1 hr GTT @ 20wks 11/03 APPT [facility] 2 16:43:51 Spinal muscular atrophy [id number] Completed Carrier - Not in contact with FOB. [place] ramos [facility] 2 16:43:51 Anxiety 41946389 Completed prozac Karina ramos [facility] 4 11:00:46 Nausea 617270954 Completed d/c zofran pump 11/08 per pt request Karina ramos [facility] 4 11:00:46 Postpart um hemorrha ge [id number] Completed hx of - 2017 with d&c Karina ramos [facility] 4 11:00:46 Normal pregnanc y in multigra jessy [id number] 63057 Completed 201907/05/2021 Encounte r for supervis ion of other normal pregnanc y, 3rd trimeste r;Record ed Elsewher e: No Locat ion: [facility] S ource: EHR Supermarket Manager yvrose: N Natalyati ce ID: 0001 Gigi lable Time: 10:45:00 AM Karina ramos [facility] 10:15:27 Gestatio n period, 37 weeks 24724611 Completed 201907/05/2021 37 weeks gestatio n of pregnanc y;Record ed Elsewher e: No Locat ion: [facility] S ource: EHR Supermarket Manager yvrose: N Natalyati ce ID: 0001 Gigi lable Time: 09:00:00 AM Karina ramos, [facility] 10:15:[address] Concept Completed 201907/05/2021 Matern care for abnlt fetl hrt rate or rhym, 3rd tri, unsp;Rec orded Elsewher e: No Locat ion: [facility] S ource: EHR Supermarket Manager yvrose: N Natalyati ce ID: 0001 Gigi lable Time: 08:45:00 AM Karina ramos [facility] 10:15:29 Gestatio nal diabetes mellitus 20757539 Completed 201907/05/2021 Gestatio nal diabetes mellitus in pregnanc y, diet controll ed;Recor ded Elsewher e: No Locat ion: [facility] S ource: EHR Supermarket Manager yvrose: N Natalyati ce ID: 0001 Gigi lable Time: 11:45:00 AM Karina ramos [facility] 10:15:25 Gestatio n period, 38 weeks 91562239 Completed 201907/05/2021 38 weeks gestatio n of pregnanc y;Record ed Elsewher e: No Locat ion: [facility] S ource: EHR Supermarket Manager yvrose: N Natalyati ce ID: 0001 Gigi lable Time: 11:30:00 AM Karina ramos [facility] 10:15:13 Amenorrh ea 69269625 Completed 202007/10/2021 Tammi Jones null, [facility] 13:08:35 Pregnanc y 52479010 Completed 202003/29/2022 Emma Dykes null, [facility] 12:28:48 Pregnanc y 27155770 Completed 202304/22/2024 Emma Dykes null, [facility] 12:28:48 Headache 56115536 Active 2023 Karina Heike null, [facility] 16:19:28 Pregnanc y 85911010 Completed 202309/14/2025 Emma Dykes null, [facility] 12:28:48 Uncompli cated moderate persiste nt asthma 131509607 Completed 2024 albutero l prn Shawn Bradley MD [address], [place], [address], [facility] 13:08:36 Anxiety 52054449 Completed 2024 sertrali ne started 03/02/25 changed to prozac 10 on Shawn Bradley MD [address], [place], [address], [facility] 17:05:48 Nausea and vomiting 80518490 Completed 2024 Shawn Bradley MD [address], [place], [address], [facility] 13:20:27 Placenta circumva llata 5726138 Completed 2024 32wk growth Ryann Castro [facility], [facility] 5 09:44:35 Frequent headache 396701459 Completed 2024 transpor t to [facility] 05/21, discharg e 05/23 [facility] referral faxed 05/24 [facility] to [facility] [...] 2-3 times a week. Ryann Matthew ramos [facility] 5 10:55:26 Abnormal placenta affectin g manageme nt of mother 98016176 Completed 2024 MCI serial growth us Ryann Matthew ramos [facility] 5 10:46:25 Iron deficien cy anemia 19652797 Com[facility] venofer 200mg x1 HGB 10.6 Ryann ramos [facility] 5 15:21:25 Gestatio nal diabetes mellitus 24777119 Completed 2024 checking bs QID - ruled in GDM Referral faxed to [facility] 07/07 Ryann ramos [facility] 5 14:36:52 Notes:Order faxed to [facility] r access 08/10 for PICC line, and home health already caring for pt. Vladimir RDZ at [phone] Problem Notes None recorded. Procedures Surgical History Date Name Laterality Status Provider Name and Address Organization Details Recorded Time 025 SALPINGECTOMY, LAPAROSCOPIC (SURG) completed Not Available [facility] 09/06/2025 11:19:17 025 Date of Last Pap Smear completed Karina Burroughs [facility] 01/28/2025 11:19:42 024 Nexplanon Removal completed Shawn Bradley MD [address], [place], [address], [facility] 08/05/2024 15:09:58 024 Control Implant Insertion completed Anju Mcnamara CNM [address], [place], [address], [facility] 05/08/2024 17:59:34 024 cholecystectomy completed [...] Name and Address Organization Details Recorded Time 20315 terbutali ne medicatio n anaphylax is Not available Not available 01/27/20252021 71484 RxNorm Karina ramos, [facility] 16:19:27 06320 amoxicill in medicatio n Not available Not available Not available 09/10/2025 723 RxNorm Not Available [employer] - External Data Service - prod 16:39:37 54088 terbinafi ne medicatio n anaphylax is Not available [facility] 09/10/20252024 49901 RxNorm Not Available [employer] External Data Service - prod 16:40:54 Medications [...] Prescrib ed Elsewher e: Yes Loca tion: [facility] odify By: prabhjot Lee r DateTime : [...] n (supplie d by office) insert lot [id number] Exp 01/2026 Not Available Not Available Not Available 28 mg iron-800 mcg tablet 07/05 completed Prescrib ed Elsewher e: Yes Loca tion: [facility] odify By: prabhjot Lee r DateTime : 01/14/20 10:45:00 AM Not Available Not Available Not Available lidocaine 5 % topical ointment APPLY OINTMENT EXTERNAL LY TO RIBS THREE TIMES DAILY NEEDED 01/14 completed Not Available Not Available Not Available 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 08/25/2025 15:41:08 Date Recorded Body height Body mass index (BMI) Body weight Systolic And Diastolic Provider Name and Address Organization Details Last Updated DateTime 08/25/2025 162.56 cm 31.6 kg/m2 85667 g 108/72 mm[Hg] Emma Dykes [facility] 08/25/2025 17:18:37 Social History Question Answer Notes LastModified by Organizat ion Details LastModified Time Tobacco Smoking Status Former Smoker Karina ramos, [facility] 07/05/2021 09:06:21 If You Are , What Was Your Level Of Alcohol Consumption Prior To ? Occasional Information not available 03/31/2025 Are You Blind Or Do You Have Difficulty Seeing? No [email or web address] Information not available 07/05/2021 What Is Your Level Of Caffeine Consumption? Heavy [email or web address] Information not available 07/05/2021 In The 14 Days Before Symptom Onset, Have You Had Close Contact With A [facility] While That Case Was Ill? No [email or web address] Information not available 07/05/2021 In The 14 Days Before Symptom Onset, Have You Had Close Contact With A Person Who Is Under Investigation For COVID-19 While That Person Was Ill? No [email or web address] Information not available 07/05/2021 Have You Been To An Area Known To Be High Risk For COVID-19? No [email or web address] Information not available 07/05/2021 Are You Deaf Or Do You Have Serious Difficulty Hearing? No [email or web address] Information not available 07/05/2021 What Type Of Diet Are You Following? REGULAR Information not available 07/05/2021 Which Illicit Or Recreational Drugs Have You Used? Marijuana [email or web address] Information not available 07/05/2021 Have You Ever Been Counseled For Unhealthy Alcohol Use? No [email or web address] Information not available 07/05/2021 Do You Use Your Seat Belt Or Car Seat Routinely? Yes [email or web address] Information not available 07/05/2021 Do You Have Smoke And Carbon Monoxide Detectors In Your Home? Yes Information not available 07/05/2021 Do You Use Sunscreen Routinely? Yes Information not available 07/05/2021 Has Tobacco Cessation Counseling Been Provided? No [email or web address] Information not available 07/05/2021 Have You Used IV Drugs? No [email or web address] Information not available 07/05/2021 Do You Have Difficulty Walking Or Climbing Stairs? No [email or web address] Information not available 12/06/2021 Sex: Unknown Functional Status Question Answer Note LastModified by Organizat ion Details LastModified Time Do you use any illicit or recreational drugs? Yes [email or web address] Information not available 07/05/2021 Do you or have you ever used any other forms of tobacco or nicotine? Yes [email or web address] Information not available 07/05/2021 What is your level of alcohol consumption? None Information not available 03/31/2025 Do you or have you ever used smokeless tobacco? Never used smokeless tobacco [email or web address] Information not available 07/05/2021 Are you able to walk independently without assistance or assistive devices? YESWOREST [email or web address] Information not available 07/05/2021 Are you able to care for yourself independently? Yes [email or web address] Information not available 12/06/2021 Do you have difficulty dressing, bathing, grooming, or toileting? No [email or web address] Information not available 12/06/2021 Do you or have you ever used e-cigarettes or vape? Current user of electronic cigarettes [email or web address] Information not available 07/05/2021 What is your exercise level? Occasional [email or web address] Information not available 07/05/2021 Mental Status Question Answer Note LastModified by Organization D etails LastModified Time Do you feel stressed (tense, restless, nervous, or anxious, or unable to sleep at night)? [id number] [email or web address] Information not available 07/05/2021 Family History Relationship Description Onset Age of this Age Resolved Age Notes LastModified by Organization Details LastModified Time Father No current problems or disability [email or web address] Not available 05/2021 09:06:31 Mother No current [...] ICD10 Code Diagnosis IMO Codes Diagnosis Note [id number] Shawn Bradley MD [facility] [address] [address] 08/04/2025 14:02:59 08/04/2025 15:06:33 Gestational diabetes mellitus 98246483 O24.410 O43.103 O43.113 Z3A.34 66856473 [id number] [facility] [address] [place] [address] 08/04/2025 14:21:57 08/04/2025 15:26:03 Gestation period, 34 weeks 00205049 Z3A.34 3642315 Pruritic d isorder of skin 3148157608 L29.9 40209 plan labs today, ursadiol BID [id number] Anju Mcnamara [facility] [address] [place] [address] 08/11/2025 14:51:38 08/11/2025 17:16:44 Gestational diabetes mellitus 63998553 O24.414 09834101 [id number] [facility] [address] [place] [address] 08/11/2025 16:25:59 08/11/2025 17:46:32 Gestational diabetes mellitus 30056369 O24.414 27860221 [id number] Shawn Bradley MD [facility] [address] [place] [address] 08/18/2025 09:40:51 08/18/2025 10:15:47 Gestational diabetes mellitus 65003606 O24.414 Z3A.36 23593503 [id number] [facility] [address] [place] [address] 08/18/2025 09:41:06 08/18/2025 11:24:04 Gestation period, 36 weeks 40887407 Z3A.36 6925696 cont pnv [id number] Anju Mcnamara CNM [facility] [address],[place] [address] 08/18/2025 09:41:16 08/18/2025 16:17:31 Gestational diabetes mellitus class A2 40116294 O24.414 63462487 [id number] Shawn Bradley MD [facility] [address],[place] [address] 08/25/2025 14:26:29 08/25/2025 15:14:02 Gestational diabetes mellitus 04114224 O24.414 97746036 [id number] Anju Mcnamara CNM [facility] [address],[place] [address] 08/25/2025 14:26:57 08/25/2025 15:53:52 Gestation period, 37 weeks 13268908 Z3A.37 1905390 continue vitamin [id number] Anju Mcnamara CNM [facility] [address],[place] [address] 08/25/2025 16:48:00 08/25/2025 17:20:42 Gestational diabetes mellitus 40991607 O24.419 [id number] Health Concerns Section Related Observation LastModified by Organization Detai ls LastModified Time None Recorded Concern Status LastModified by Organization Details LastModified Time None Recorded Payers Encounter Date Sequence Insurance Name Policy Number Policy Roberts Covered Member ID Roberts Member ID Guarantor Name 08/25/2025 1 [facility] (MEDICAID HMO) [id number] Yuni Mejia [id number] Yuni Mejia Notes Date Note Type Note Provider Name and Address Organization Details Recorded Time 08/25/2025 text/html Generic HPI TemplateReported by Patient Anju Mcnamara CNM [address], [place], [address], [facility] 08/25/2025 15:51:24 OBGyn Episode Ob Episode Information Episode Created Date Number of Fetuses Patient Bloodtype Patient rh Status Prepregnancy Weight lbs Domestic Partner Domestic Partner Phone Father Name Heavy Cleaner Status 03/02/20 25 1 B Positive 164 CLOSED Fetus Data First Name Last Name Admitted to NICU Weight (g) Sex Living Outcome Pediatric Complications Fetus ID Race Codes Race Delivery Type Gladis false 4025.62 9 F true Full Term 30844 Vaginal Delivery Problems Problem Notes SDH form completed 5GI consult Tachycardia Holter monitor 72 order- pt sent back on 03-27-25 Cardiology referral faxed per Dr Martínez office calling pt 04/21 to schedule consult scheduled 05/11 11:15AM Problem Name Start Date End Date Resolution Snomed Code Not e Uncomplicated moderate persistent asthma 03/02/2025 969212598 albuterol prn Abnormal placenta affecting management of mother 05/04/2025 45289043 MCI serial grow th us Iron deficiency anemia 05/25/2025 82544916 [facility] MFM tx [place] 200mg x1 HGB 10.6 Nausea and vomiting 03/02/2025 85469560 Anxiety 03/02/2025 11331623 sertralin e started 03/02/25 changed to prozac 10 on Gestational diabetes mellitus 07/08/2025 22886843 checking bs QID - ruled in GDM Referral faxed to [facility] 07/07 Frequent headache 05/03/2025 [id number] [place] to [facility] 05/21, discharge 05/23 [facility] referral faxed 05/24 [facility] Neurology consult pending per KAJAL Pittman [facility]- [facility] unable to see pt due to insurance 05/25[facility] 07/05/25 Level US & Consult (see [facility] consult zayas recommendations ) regimen prn Imitrex 50mg for acute migraine, vitamin B2 (Riboflavin) 400mg, Coenzyme q10 300mg and magnesium oxide 200 to 600mg daily. minimize use of Excedrin or Tylenol to no more than 2-3 times a week. 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/2025 9385469 32wk growth us Jun Calculation Initial Jun [...] Weight in lbs Pre/Post Dialysis Refused Weight 158.123001812100 BP Diastolic BP Location Tested BP Systolic [...] Weight in lbs Pre/Post Dialysis Refused Weight 158.336539104428 BP Diastolic BP Location Tested BP Systolic [...] Weight in lbs Pre/Post Dialysis Refused Weight 162.833055952670 BP Diastolic BP Location Tested BP Systolic BP Type 78 123 Fetus Heart Rate Present A 148 Fetus Movement A Yes Comments Patient is having having ronny n, cramping and vaginal discharge. went to ed exam done cultures and rx sent, ?FM, await cardiac cath technician results rfilled zofran, precautions and education [...] Type Weight in lbs Pre/Post Dialysis Refused 168.535113629558 BP Diastolic BP Location Tested BP Systolic [...] Type Weight in lbs Pre/Post Dialysis Refused 169.366081719532 BP Diastolic BP Location Tested BP Systolic [...] Weight in lbs Pre/Post Dialysis Refused Weight 175.831668869671 BP Diastolic BP Location Tested BP Systolic [...] Weight in lbs Pre/Post Dialysis Refused Weight 182.011318046462 BP Diastolic BP Location Tested BP Systolic [...] Weight in lbs Pre/Post Dialysis Refused Weight 181.450118892830 BP Diastolic BP Location Tested BP Systolic BP Type 73 L arm 131 sitting Fetus Heart Rate Present Fetus Movement A Yes Comments viral URI testied neg at urg ent care, nausea resolved, efw 68%, +FM plan education and precautions f/u 2 weeks diagnosed GDM, 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, gave list reviewed protein vs carb Flowsheet Date 07/21/2025 Gibson Score Blood Edema Fundus Height Fundus Units Glucose Ketones Leukocytes Nitrite Labor Signs Protein Cervic Dilation Cervic Effacement Cervic Station Type Weight in lbs Pre/Post Dialysis Refused Weight 181.251042490391 BP Diastolic BP Location Tested BP Systolic BP Type 78 L arm 127 sitting Fetus Heart Rate Present A 150 Fetus Movement A Yes Comments rpt urine culture +FM review ed blood sugars, meets with veneer jointer offbearer today, precautions and education f/u 2 weeks [...] Weight in lbs Pre/Post Dialysis Refused Weight 181.349485495599 BP Diastolic BP Location Tested BP Systolic [...] Weight in lbs Pre/Post Dialysis Refused Weight 183.164937707152 BP Diastolic BP Location Tested BP Systolic [...] Type Weight in lbs Pre/Post Dialysis Refused 184.562120517200 BP Diastolic BP Location Tested BP Systolic [...] Type Weight in lbs Pre/Post Dialysis Refused 184.439491386974 BP Diastolic BP Location Tested BP Systolic [...] Type Weight in lbs Pre/Post Dialysis Refused 184.689651961324 BP Diastolic BP Location Tested BP Systolic [...] Weight in lbs Pre/Post Dialysis Refused Weight 184.177775678679 BP Diastolic BP Location Tested BP Systolic [...] Weight in lbs Pre/Post Dialysis Refused Weight 164.581392063220 BP Diastolic BP Location Tested BP Systolic [...]
--- OUTSIDE RECORDS SUMMARY | 2025-09-16 17:55 | XMS_ITS ---
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 Role Phone MARK Fernandez Attending Unavailable [...] CVX HPV9 01/05/2017 Completed 165 CVX Results D DIMER - Collect Date/Time: 06/08/2024 09:45 [facility] ID: [id number] [place], [place], [id number] LOINC: Test Value Unit Reference Range Code Code System Flag DDIMER 0.35 mg/L FEU L=0.00 H=0.50 Social History Type Status Start Date End Date Code Code Syst em Smoking History Never smoker (Never Smoked) 384331715 SNOMED CT Sex Female Assessment You had [...] 6002 SNOMED-CT UNSPECIFIED ABDOMINAL PAIN active 215 05732 SNOMED-CT Allergies and Adverse Reactions Allergy Substance Reaction Severity Start Date Concern Status Co de Code System AMOXICILLIN Active 723 RxNorm TERBUTALINE Active 42641 RxNorm Plan of Treatment Stress Test Treadmill 01/21/2025 Health Care Law Specialist Consult 04/27/2025 Encounters Encounter Diagnosis Start Date Code Code Sys tem Low back pain, unspecified 06/08/2024 S NOMED-CT Personal Care Team Section Performer Name Performer [...]
--- OUTSIDE RECORDS SUMMARY | 2025-09-16 17:55 | XMS_ITS | Continuity of Care Document ---
Author Organization [facility], [facility] Address [address] [place] [address] [place] [address] Care Team Providers [employer] Development Analyst Name Role Phone CARLOS ESTRADA Primary Care Provider [phone] Assessment No assessment recorded. Plan of Treatment Reminders Order Date Submit Date Provider Last Modified By Organization Details Last Modified Time Details Appointments None recorded. Lab None recorded. Referral None recorded. Procedures None recorded. Surgeries None recorded. Imaging US, obstetric, biophysical profile + non-stress test 2024 025 [email or web address] [address], [address], [place], [address], 10:41:20 Medication Orders None recorded. Patient TargetsNo targets recorded. Patient InstructionsNo instructions recorded. Reason for Referral None Reported. Results Created Date Observation Date Name Description Value Unit Range Abnormal Flag Note LastModifiedBy Organization Detail LastModifiedTime 03/06/2003/06/2025 [UNIT Y] ANEUP LOIDY NIPT fraction 5.7% normal Not Available [facility] [address], [place], [address], 03/06/2025 03:58:26 03/06/20 25 03/06/2025 [UNIT Y] ANEUP LOIDY NIPT sex chromosome aneuploidy NOT DETECT ED normal Not Available [facility] [address], [place], [address], 03/06/2025 03:58:26 03/06/20 25 03/06/2025 [UNIT Y] ANEUP LOIDY NIPT monosomy X LOW RISK <1 in 10,000 normal Not Available [facility] [address], [place], [address], 03/06/2025 03:58:26 03/06/20 25 03/06/2025 [UNIT Y] ANEUP LOIDY NIPT trisomy 13 LOW RISK <1 in 10,000 normal Not Available [facility] [address], [place], [address], 03/06/2025 03:58:26 03/06/20 25 03/06/2025 [UNIT Y] ANEUP LOIDY NIPT trisomy 18 LOW RISK <1 in 10,000 normal Not Available [facility] [address], [place], [address], 03/06/2025 03:58:26 03/06/20 25 03/06/2025 [UNIT Y] ANEUP LOIDY NIPT trisomy 21 LOW RISK <1 in 10,000 normal Not Available [facility] [address], [place], [address], 03/06/2025 03:58:26 03/06/20 25 03/06/2025 [UNIT Y] ANEUP LOIDY NIPT sex FEMALE normal Not Available [facility] [address], [place], [address], 03/06/2025 03:58:26 03/06/20 25 03/06/2025 [UNIT Y] ANEUP LOIDY NIPT gestation SINGLE TON normal Not Available [facility] [address], [place], [address], 03/06/2025 03:58:26 03/06/20 25 03/06/2025 [UNIT Y] ANEUP LOIDY NIPT for detailed report, see pdf See PDF normal Not Available [facility] [address], [place], [address], 03/06/2025 03:58:26 03/02/2003/02/2025 CULTU RE: URINE result report SEE RESULT S BELOW Test: Cultu re: Urine Speci men Sourc e: Urine - Clean Catch Speci men Type: Urine Speci men Date: 025 1455 Resul t Date: 025 2138 Resul t Statu s: Final resul t Abnor mal: No Resul ting Lab: [facility] [address] [facility] [address] Tel: CULTU RE ----- ----- ----- --- No growt h in 1 day (dete ction level of 10,00 0 colon ies / ml.) Not Available [facility] (Lab) [address] [facility], [place], [address], 03/03/2025 22:42:27 03/12/2003/12/2025 CULTU RE: URINE result report SEE RESULT S BELOW Test: Cultu re: Urine Speci men Sourc e: Urine - Clean Catch Speci men Type: Urine Speci men Date: 2024 1600 Resul t Date: 2024 0610 Resul t Statu s: Final resul t Abnor mal: No Resul ting Lab: [facility] [address] [facility] [address] Tel: CULTU RE ----- ----- ----- --- No growt h in 1 day (dete ction level of 10,00 0 colon ies / ml.) Not Available [facility] (Lab) [address] [place], [address], 03/14/2025 07:15:03 03/12/2003/12/2025 urina lysis , dipst ick Leukocytes ++ Not Available [address], [place], [address], 03/12/2025 16:45:06 03/12/2003/12/2025 urina lysis , dipst ick Protein + Not Available [facility] [address], [place], [address], 03/12/2025 16:45:06 03/12/20 25 03/12/2025 urina lysis , dipst ick pH 5 Not Available [facility] [address], [place], [address], 03/12/2025 16:45:06 03/12/20 25 03/12/2025 urina lysis , dipst ick Blood trace Not Available [facility] [address], [place], [address], 03/12/2025 16:45:06 03/12/20 25 03/12/2025 urina lysis , dipst ick Specific Cushing 1.015 Not Available [facility] [address], [place], [address], 03/12/2025 16:45:06 03/12/20 25 03/12/2025 urina lysis , dipst ick Ketone +++ Not Available [facility] [address], [place], [address], 03/12/2025 16:45:06 03/31/20 25 03/31/2025 TSH, REFLE X FREE T4 TSH 0.42 uIU/m L 0.30-5 .33 Not Available [facility] (Lab) [address] [facility], [place], [address], 04/01/2025 03:05:12 03/31/20 25 03/31/2025 CULTU RE: URINE result report SEE RESULT S BELOW Test: Cultu re: Urine Speci men Sourc e: Urine Voide d Speci men Type: Urine Speci men Date: 1710 Resul t Date: 6 Resul t Statu s: Final resul t Abnor mal: No Resul ting Lab: [facility] [address] [facility] [address] Tel: CULTU RE ----- ----- ----- --- Cultu re resul t (>=3 organ isms prese nt) indic ates possi ble conta minat ion. Repea t cultu re if sympt oms indic ate. Not Available [facility] (Lab) [address] [facility], [place], [address], 04/01/2025 23:59:19 03/31/20 25 03/31/2025 urina lysis , dipst ick Leukocytes +1 Not Available [address], [place], [address], 03/31/2025 09:23:13 03/31/20 25 03/31/2025 urina lysis , dipst ick Nitrite normal Not Available [facility] [address], [place], [address], 03/31/2025 09:23:13 03/31/20 25 03/31/2025 urina lysis , dipst ick Urobilinogen normal Not Available [facility], [place], [address], 03/31/2025 09:23:13 03/31/20 25 03/31/2025 urina lysis , dipst ick Protein trace Not Available [facility] [address], [place], [address], 03/31/2025 09:23:13 03/31/20 25 03/31/2025 urina lysis , dipst ick pH 5 Not Available [facility] [address], [place], [address], 03/31/2025 09:23:13 03/31/20 25 03/31/2025 urina lysis , dipst ick Specific Cushing 1.020 Not Available [facility] [address], [place], [address], 03/31/2025 09:23:13 03/31/20 25 03/31/2025 urina lysis , dipst ick Ketone normal Not Available [address], [place], [address], 03/31/2025 09:23:13 03/31/20 25 03/31/2025 urina lysis , dipst ick Bilirubin normal Not Available [facility] [address], [place], [address], 03/31/2025 09:23:13 03/31/20 25 03/31/2025 urina lysis , dipst ick Glucose normal Not Available [facility] [address], [place], [address], 03/31/2025 09:23:13 03/31/20 25 03/31/2025 urina lysis , dipst ick Appearance normal Not Available [facility] [address], [place], [address], 03/31/2025 09:23:13 03/31/20 25 03/31/2025 urina lysis , dipst ick Color normal Not Available [facility], [place], [address], 03/31/2025 09:23:13 04/01/20 25 04/01/2025 [facility]IS bacterial vaginosis (bv), tma Negati ve negati ve Not Available [facility] (Lab) [address] [place], [address], 04/02/2025 14:08:45 04/01/20 25 04/01/2025 [facility], DENIS mekhi species, tma Negati ve negati ve Not Available [facility] (Lab) [address] [facility] [place], [address], 04/02/2025 14:08:45 04/01/20 25 04/01/2025 [facility] SWAB PLUS, DENIS mekhi glabrata, tma Negati ve negati ve Not Available [facility] (Lab) [address] [place], [address], 04/02/2025 14:08:45 04/01/20 25 04/01/2025 [facility] DENIS trichomonas vaginalis, tma Negati ve negati ve Not Available [facility] (Lab) [address] [facility], [place], [address], 04/02/2025 14:08:45 04/01/20 25 04/01/2025 [facility], DENIS chlamydia trachomatis, PCR Negati ve negati ve Not Available [facility] (Lab) [address] [place], [address], 04/02/2025 14:08:45 04/01/20 25 04/01/2025 [facility], DENIS neisseria gonorrhoeae, [...] ded in this panel . Not Available [facility] (Lab) [address] [place], [address], 04/02/2025 14:08:45 04/22/2004/22/2025 CULTU RE: URINE result report SEE RESULT S BELOW Test: Cultu re: Urine Speci men Sourc e: Urine Voide d Speci men Type: Urine Speci men Date: 2024 1314 Resul t Date: 2024 0322 Resul t Statu s: Final resul t Abnor mal: No Resul ting Lab: [facility] [address] [facility] [address] Tel: CULTU RE ----- ----- ----- --- No growt h in 1 day (dete ction level of 10,00 0 colon ies / ml.) Not Available [facility] (Lab) [address], [place], [address], 04/24/2025 04:28:01 04/22/20 25 04/22/2025 urina lysis , dipst ick Leukocytes + Not Available [facility] [address], [place], [address], 04/22/2025 10:01:51 04/22/20 25 04/22/2025 urina lysis , dipst ick Protein + Not Available [facility] [address], [place], [address], 04/22/2025 10:01:51 04/22/20 25 04/22/2025 urina lysis , dipst ick pH 8 Not Available [facility] [address], [place], [address], 04/22/2025 10:01:51 04/22/20 25 04/22/2025 urina lysis , dipst ick Blood + Not Available [facility] [address], [place], [address], 04/22/2025 10:01:51 04/22/2004/22/2025 urina lysis , dipst ick Specific Cushing 1.010 Not Available [facility] [address], [place], [address], 04/22/2025 10:01:51 04/22/2004/22/2025 urina lysis , dipst ick Ketone + Not Available [facility] [address], [place], [address], 04/22/2025 10:01:51 06/23/2006/23/2025 HEMAT OCRIT (HCT) HCT 35.6 % (based on docume nted legal sex) 34.0-4 5.0 Not Available [facility] (Lab) [address] [facility], [place], [address], 06/24/2025 11:45:32 06/23/20 25 06/23/2025 HEMOG LOBIN (HGB) HGB 11.1 g/dL (based on docume nted legal sex) 11.6-1 5.4 low Not Available [facility] (Lab) [address] [facility], [place], [address], 06/24/2025 11:45:32 06/23/20 25 06/23/2025 GTT - GESTA ROLAND L SCREE N, ACOG OB glucose, 1 hour screen 180 mg/dL 70-135 high Not Available [facility] (Lab) [address] [facility], [place], [address], 06/24/2025 11:45:33 06/23/20 25 06/23/2025 HIV 1/2 ANTIG EN/AN TIBOD Y, REFLE X CONFI RMATI ON HIV antigen/anti body Nonrea ctive nonrea ctive HIV-1 antig en and HIV-1 /HIV- 2 antib odies were not detec greg. No labor atory evide nce of HIV infec tion. Not Available [facility] (Lab) [address] [facility], [place], [address], 06/24/2025 11:45:33 06/23/20 25 06/23/2025 RPR SCREE N, REFLE X TITER /CONF IRMAT ION RPR qualitative Nonrea ctive nonrea ctive Not Available [facility] (Lab) [address] [facility], [place], [address], 06/24/2025 11:45:34 07/21/20 25 07/21/2025 CULTU RE: URINE result report SEE RESULT S BELOW Test: Cultu re: Urine Speci men Sourc e: Urine - Clean Catch Speci men Type: Urine Speci men Date: 2024 1024 Resul t Date: 2024 0252 Resul t Statu s: Final resul t Abnor mal: No Resul ting Lab: [facility] [address] [facility] [address] Tel: CULTU RE ----- ----- ----- --- No growt h in 1 day (dete ction level of 10,00 0 colon ies / ml.) Not Available [facility] (Lab) [address] [place], [address], 07/23/2025 03:57:01 07/21/2007/21/2025 urina lysis , dipst ick Leukocytes ++ Not Available [address], [place], [address], 07/21/2025 11:03:04 07/21/20 25 07/21/2025 urina lysis , dipst ick Nitrite neg Not Available [facility] [address], [place], [address], 07/21/2025 11:03:04 07/21/20 25 07/21/2025 urina lysis , dipst ick Urobilinogen neg Not Available [facility] [address], [place], [address], 07/21/2025 11:03:04 07/21/20 25 07/21/2025 urina lysis , dipst ick Protein + Not Available [facility], [place], [address], 07/21/2025 11:03:04 07/21/20 25 07/21/2025 urina lysis , dipst ick pH 5 Not Available [facility] [address], [place], [address], 07/21/2025 11:03:04 07/21/20 25 07/21/2025 urina lysis , dipst ick Specific Cushing 1.030 Not Available [facility] [address], [place], [address], 07/21/2025 11:03:04 07/21/20 25 07/21/2025 urina lysis , dipst ick Ketone +++ Not Available [facility] [address], [place], [address], 07/21/2025 11:03:04 07/21/20 25 07/21/2025 urina lysis , dipst ick Bilirubin neg Not Available [facility] [address], [place], [address], 07/21/2025 11:03:04 07/21/20 25 07/21/2025 urina lysis , dipst ick Glucose neg Not Available [facility] [address], [place], [address], 07/21/2025 11:03:04 07/21/20 25 07/21/2025 urina lysis , dipst ick Appearance cloudy Not Available [facility] [address], [place], [address], 07/21/2025 11:03:04 07/21/20 25 07/21/2025 urina lysis , dipst ick Color dark Not Available [address], [place], [address], 07/21/2025 11:03:04 08/04/20 25 08/04/2025 CMP(C OMPRE HENSI VE METAB OLIC PANEL ) sodium 138 mmol/ L 133-14 6 Not Available [facility] (Lab) [address] [facility], [place], [address], 08/05/2025 13:39:18 08/04/20 25 08/04/2025 CMP(C OMPRE HENSI VE METAB OLIC PANEL ) potassium 4.0 mmol/ L 3.5-5. 1 Not Available [facility] (Lab) [address] [facility], [place], [address], 08/05/2025 13:39:18 08/04/20 25 08/04/2025 CMP(C OMPRE HENSI VE METAB OLIC PANEL ) chloride 105 mmol/ L 98-107 Not Available [facility] (Lab) [address] [facility], [place], [address], 08/05/2025 13:39:18 08/04/20 25 08/04/2025 CMP(C OMPRE HENSI VE METAB OLIC PANEL ) carbon dioxide 25 mmol/ L 21-31 Not Available [facility] (Lab) [address] [facility], [place], [address], 08/05/2025 13:39:18 08/04/20 25 08/04/2025 CMP(C OMPRE HENSI VE METAB OLIC PANEL ) anion gap 8 mmol/ L 4-13 Not Available [facility] (Lab) [address] [facility], [place], [address], 08/05/2025 13:39:18 08/04/20 25 08/04/2025 CMP(C OMPRE HENSI VE METAB OLIC PANEL ) blood urea nitrogen 10 mg/dL 7-25 Not Available [facility] (Lab) [address] [facility], [place], [address], 08/05/2025 13:39:18 08/04/20 25 08/04/2025 CMP(C OMPRE HENSI VE METAB OLIC PANEL ) creatinine 0.41 mg/dL 0.60-1 .30 low Not Available [facility] (Lab) [address] [facility], [place], [address], 08/05/2025 13:39:18 08/04/20 25 08/04/2025 CMP(C OMPRE HENSI VE METAB OLIC PANEL ) egfrcr (CKD-epi 2020) >90 mL/mi n/1.7 3_m2 >=60 Not Available [facility] (Lab) [address] [facility], [place], [address], 08/05/2025 13:39:18 08/04/20 25 08/04/2025 CMP(C OMPRE HENSI VE METAB OLIC PANEL ) calcium 8.9 mg/dL 8.3-10 .5 Not Available [facility] (Lab) [address] [facility], [place], [address], 08/05/2025 13:39:18 08/04/20 25 08/04/2025 CMP(C OMPRE HENSI VE METAB OLIC PANEL ) glucose 116 mg/dL 70-100 high Not Available [facility] (Lab) [address] [facility], [place], [address], 08/05/2025 13:39:18 08/04/20 25 08/04/2025 CMP(C OMPRE HENSI VE METAB OLIC PANEL ) protein, total 6.1 g/dL 6.4-8. 3 low Not Available [facility] (Lab) [address] [facility], [place], [address], 08/05/2025 13:39:18 08/04/20 25 08/04/2025 CMP(C OMPRE HENSI VE METAB OLIC PANEL ) albumin 3.5 g/dL 3.5-5. 0 Not Available [facility] (Lab) [address] [facility], [place], [address], 08/05/2025 13:39:18 08/04/20 25 08/04/2025 CMP(C OMPRE HENSI VE METAB OLIC PANEL ) ALT 11 units /L 9-43 Not Available [facility] (Lab) [address] [facility], [place], [address], 08/05/2025 13:39:18 08/04/20 25 08/04/2025 CMP(C OMPRE HENSI VE METAB OLIC PANEL ) alkaline phosphatase 98 units /L 34-104 Not Available [facility] (Lab) [address] [facility], [place], [address], 08/05/2025 13:39:18 08/04/20 25 08/04/2025 CMP(C OMPRE HENSI VE METAB OLIC PANEL ) AST 15 units /L 13-39 Not Available [facility] (Lab) [address] [facility], [place], [address], 08/05/2025 13:39:18 08/04/2008/04/2025 CMP(C OMPRE HENSI VE METAB OLIC PANEL ) bilirubin, total 0.3 mg/dL 0.2-1. 2 Not Available [facility] (Lab) [address] [facility], [place], [address], 08/05/2025 13:39:18 08/04/20 25 08/04/2025 BILE ACIDS , TOTAL bile acids, total 4 umol/ L 0-10 Test Perfo rmed by: [facility] [address] [address] Not Available [facility] (Lab) [address] [facility], [place], [address], 08/05/2025 13:39:19 03/02/20 25 03/02/2025 US, obste tric, nucha l trans lucen cy No observ ation record ed. [email or web address] [facility] [address], [place], [address], 03/02/2025 13:35:30 03/02/20 25 03/02/2025 US, obste tric, nucha l trans lucen cy No observ ation record ed. [email or web address] [address] [address], [place], [address], 03/03/2025 14:08:39 03/08/20 25 03/08/2025 US, obste tric, 1st trime ster No observ ation record ed. [email or web address] [facility] [address], [place], [address], 03/08/2025 12:22:22 03/08/20 25 03/08/2025 US, obste tric, 1st trime ster No observ ation record ed. [email or web address] [address]sha [address], [place], [address], 03/10/2025 15:03:13 04/01/20 25 03/24/2025 qamar r monit or No observ ation record ed. [address] [facility], [place], [address], 04/08/2025 12:36:45 04/01/20 25 03/22/2025 qamar r monit or No observ ation record ed. [address] (Pulmonary) [address] [place] [address] [place] [address], [address], 04/06/2025 08:59:34 04/20/20 25 04/20/2025 US, obste tric, limit ed No observ ation record ed. [email or web address] [facility] [address], [place], [address], 04/20/2025 17:39:30 04/20/20 25 04/20/2025 US, obste tric, follo w-up No observ ation record ed. [email or web address] [address] [address] [place] [address] [address], [place], [address], 04/23/2025 08:32:54 04/28/20 25 04/28/2025 US, obste tric, 2nd or 3rd trime ster No observ ation record ed. [email or web address] [facility] [address], [place], [address], 04/28/2025 17:48:42 04/28/20 25 04/28/2025 US, obste tric, 2nd or 3rd trime ster No observ ation record ed. [address], [place], [address], 05/04/2025 22:16:11 05/07/20 25 05/07/2025 non-s tress test No observ ation record ed. [address], [place], [address], 05/28/2025 13:33:54 05/21/20 25 05/21/2025 CT, head + brain , w/o contr ast No observ ation record ed. [address], [place], [address], 05/24/2025 13:48:57 05/28/20 25 05/28/2025 US, obste tric, follo w-up No observ ation record ed. [email or web address] [facility] [address], [place], [address], 05/28/2025 17:32:34 05/28/2005/28/2025 US, obste tric, follo w-up No observ ation record ed. [email or web address] [address] [address], [place], [address], 06/01/2025 15:13:13 06/08/20 25 06/07/2025 US, obste tric, follo w-up No observ ation record ed. [email or web address] [facility] [address] [facility], [place], [address], 06/15/2025 10:53:46 07/07/20 25 07/07/2025 US, obste tric, follo w-up No observ ation record ed. [email or web address] [facility] [address], [place], [address], 07/07/2025 13:18:01 07/07/20 25 07/07/2025 US, obste tric, follo w-up No observ ation record ed. [email or web address] [facility] [address], [place], [address], 07/07/2025 11:29:37 08/04/20 25 08/04/2025 US, obste tric, follo w-up No observ ation record ed. [email or web address] [facility] [address], [place], [address], 08/04/2025 15:08:50 08/04/20 25 08/04/2025 US, obste tric, follo w-up No observ ation record ed. [email or web address] [facility] [address], [place], [address], 08/06/2025 10:41:50 08/11/2008/11/2025 non-s tress test No observ ation record ed. [email or web address] [facility] [address], [place], [address], 08/11/2025 17:37:52 08/11/20 non-s tress test No observ ation record ed. [email or web address] [facility] [address], [place], [address], 08/11/2025 17:38:11 08/15/2008/15/2025 non-s tress test No observ ation record ed. [place] [id number] [facility] [address], [place], [address], 08/21/2025 10:18:57 08/15/2008/15/2025 US, obste tric, bioph ysica l profi le No observ ation record ed. [place] [id number] [facility] [address], [place], [address], 08/17/2025 10:50:53 08/18/2008/18/2025 US, obste tric, bioph ysica l profi le + non-s tress test No observ ation record ed. [email or web address] [facility] [address], [place], [address], 08/18/2025 10:21:39 08/18/2008/18/2025 US, obste tric, bioph ysica l profi le + non-s tress test No observ ation record ed. [email or web address] [facility] [address], [place], [address], 08/18/2025 10:35:44 08/18/2008/18/2025 non-s tress test No observ ation record ed. [email or web address] [facility] [address], [place], [address], 08/18/2025 17:34:03 08/18/20 non-s tress test No observ ation record ed. [facility] [address], [place], [address], 08/18/2025 16:06:09 08/25/2008/25/2025 US, obste tric, bioph ysica l profi le + non-s tress test No observ ation record ed. [email or web address] [facility] [address], [place], [address], 08/25/2025 18:52:06 08/25/2008/25/2025 US, obste tric, follo w-up No observ ation record ed. [email or web address] [facility] [address], [place], [address], 08/25/2025 15:47:28 08/25/2008/25/2025 non-s tress test No observ ation record ed. [email or web address] Whitman [address], [place], [address], 08/25/2025 18:12:15 08/25/20 non-s tress test No observ ation record ed. [email or web address] Whitman [address], [place], [address], 08/25/2025 17:21:19 08/30/20 25 08/30/2025 non-s tress test No observ ation record ed. [address] [place] [address], [id number], 09/15/2025 15:26:49 09/01/20 25 09/01/2025 non-s tress test No observ ation record ed. [address], [place], [address], 09/13/2025 11:32:22 09/01/20 25 09/01/2025 US, obste tric No observ ation record ed. [place] [id number] [facility] [address], [place], [address], 09/02/2025 15:56:01 09/01/20 25 09/01/2025 non-s tress test No observ ation record ed. [email or web address], [place], [address], 09/02/2025 14:32:38 09/16/20 09/16/2025 imagi ng/di agnos tic resul t No observ ation record ed. [facility] [address], [place], [address], 09/16/2025 18:07:05 Result Notes None recorded. Problems Name Problem SNOMED Code Status Onset Date Resolution Date Notes Provider Name and Address Organization Details Recorded Time Hypereme sis 830394850 Completed phenerga n now prn Asia ramos [facility] 2 16:43:51 Anxiety in pregnanc y [id number] Completed will continue to monitor [facility] ramos [facility] 2 16:43:51 Past pregnanc y history of gestatio nal diabetes mellitus [id number] Completed Early 1 hr GTT @ 20wks 11/03 APPT [facility] ramos [facility] 2 16:43:51 Spinal muscular atrophy 9059518 Completed Carrier - Not in contact with FOB. Asia ramos [facility] 2 16:43:51 Anxiety 63475030 Completed prozac Karina ramos [facility] 4 11:00:46 Nausea 322451551 Completed d/c zofran pump 11/08 per pt request Karina ramos [facility] 4 11:00:46 Postpart um hemorrha ge [id number] Completed - 2017 with d&c Karina ramos [facility] 4 11:00:46 Normal pregnanc y in multigra jessy [id number] 35653 Completed 201907/05/2021 Encounte r for supervis ion of other normal pregnanc y, 3rd trimeste r;Record ed Elsewher e: No Locat ion: [facility] S ource: [employer] Tabeler yvrose: N Natalyati ce ID: 0001 Gigi lable Time: 10:45:00 AM Karina ramos [facility] 10:15:27 Gestatio n period, 37 weeks 63905290 Completed 201907/05/2021 37 weeks gestatio n of pregnanc y;Record ed Elsewher e: No Locat ion: [facility] S ource: [employer] Tabeler yvrose: N Natalyati ce ID: 0001 Gigi lable Time: 09:00:00 AM Karina ramos, [facility] 10:15:[address] Concept Completed 201907/05/2021 Matern care for abnlt fetl hrt rate or rhym, 3rd tri, unsp;Rec orded Elsewher e: No Locat ion: [facility] S ource: [employer] Tabeler yvrose: N Natalyati ce ID: 0001 Gigi lable Time: 08:45:00 AM Karina ramos [facility] 10:15:29 Gestatio nal diabetes mellitus 57923493 Completed 201907/05/2021 Gestatio nal diabetes mellitus in pregnanc y, diet controll ed;Recor ded Elsewher e: No Locat ion: [facility] S ource: [employer] Tabeler yvrose: N Natalyati ce ID: 0001 Gigi lable Time: 11:45:00 AM Karina ramos [facility] 10:15:25 Gestatio n period, 38 weeks 62723625 Completed 201907/05/2021 38 weeks gestatio n of pregnanc y;Record ed Elsewher e: No Locat ion: [facility] S ource: [employer] Tabeler yvrose: N Natalyati ce ID: 0001 Gigi lable Time: 11:30:00 AM Karina ramos [facility] 10:15:13 Amenorrh ea 75516983 Completed 202007/10/2021 Tammi Jones null, [facility] 13:08:35 Pregnanc y 00520385 Completed 202003/29/2022 Emma Dykes null, [facility] 12:28:48 Pregnanc y 27603898 Completed 202304/22/2024 Emma Dykes null, [facility] 12:28:48 Headache 08550240 Active 2023 Karina Burroughs null, [facility] 16:19:28 Pregnanc y 36643138 Completed 202309/14/2025 Emma Dykes [facility], [facility] 12:28:48 Uncompli cated moderate persiste nt asthma 719188062 Completed 2024 albutero l prn Shawn Bradley MD [address], [place], [address], [facility] 13:08:36 Anxiety 69025333 Completed 2024 sertrali ne started 03/02/25 changed to prozac 10 on Shawn Bradley MD [address], [place], [address], [facility] 5 17:05:48 Nausea and vomiting 24232263 Completed 2024 Shawn Bradley MD [address], [place], [address], [facility] 13:20:27 Placenta circumva llata 3639687 Completed 2024 32wk growth Ryann Castro [facility], [facility] 5 09:44:35 Frequent headache 169410751 Completed 2024 transpor t to [facility] 05/21, discharg e 05/23 MF referral faxed 05/24 SS Neurolog y consult [facility] [...] 2-3 times a week. Ryann Matthew ramos [facility] 5 10:55:26 Abnormal placenta affectin g manageme nt of mother 37778330 Completed 2024 MCI serial growth us Ryann Matthew ramos [facility] 5 10:46:25 Iron deficien cy anemia 54411947 Completed 2024 [facility] venofer 200mg x1 HGB 10.6 Ryann ramos [facility] 5 15:21:25 Gestatio nal diabetes mellitus 69109862 Completed 2024 checking bs QID - ruled in GDM Referral faxed to [facility] 07/07 Ryann ramos [facility] 5 14:36:52 Notes:Order faxed to [facility] access 08/10 for PICC line, and home health already caring for pt. Vladimir RDZ at [phone] Problem Notes None recorded. Procedures Surgical History Date Name Laterality Status Provider Name and Address Organization Details Recorded Time 025 SALPINGECTOMY, LAPAROSCOPIC (SURG) completed Not Available [facility] 09/06/2025 11:19:17 025 Date of Last Pap Smear completed Karina Burroughs [facility] 01/28/2025 11:19:42 024 Nexplanon Removal completed Shawn Bradley MD [address], [place], [address], [facility] 08/05/2024 15:09:58 024 Control Implant Insertion completed Anju Mcnamara CNM [address], [place], [address], [facility] 05/08/2024 17:59:34 024 cholecystectomy completed [...] Name and Address Organization Details Recorded Time 56937 terbutali ne medicatio n anaphylax is Not available Not available 01/27/20252021 17325 RxNorm Karina ramos, [facility] 16:19:27 90571 amoxicill in medicatio n Not available Not available Not available 09/10/2025 723 RxNorm Not Available gene - External Data Service - prod 16:39:37 59875 terbinafi ne medicatio n anaphylax is Not available [facility] 09/10/20252024 59328 RxNorm Not Available [employer] External Data Service - prod 16:40:54 Medications [...] on HCl 4 mg/5 mL oral solution 05/08/ 2025 active Not Available Not Available Not Avai [...] n (supplie d by office) insert lot [id number] Exp 01/2026 Not Available Not Available Not Available 28 mg iron-800 mcg tablet 07/05 completed Prescrib ed Elsewher e: Yes Loca tion: [facility] odify By: prabhjot Lee r DateTime : 01/14/20 10:45:00 AM Not Available Not Available Not Available lidocaine 5 % topical ointment APPLY OINTMENT EXTERNAL LY TO RIBS THREE TIMES DAILY NEEDED 01/14 completed Not Available Not Available Not Available QA TECH-PNV-DH A 28 mg iron-1 mg-200 mg capsule [...] Details Last Updated DateTime 08/18/2025 162.56 cm 84806.9960 8 g 116/77 mm[Hg] Melyssa Santo [facility] 08/18/2025 10:57:44 Date Recorded Body height Body weight Systolic And Diastolic Provider Name and Address Organization Details Last Updated DateTime 08/18/2025 162.56 cm 17756.9960 8 g 116/77 mm[Hg] Emma Dykes [facility] 08/18/2025 16:03:36 Social History Question Answer Notes LastModified by Organizat ion Details LastModified Time Tobacco Smoking Status Former Smoker Karina ramos, [facility] 07/05/2021 09:06:21 If You Are , What Was Your Level Of Alcohol Consumption Prior To ? Occasional [email or web address] Information not available 03/31/2025 Are You Blind Or Do You Have Difficulty Seeing? No Information not available 07/05/2021 What Is Your Level Of Caffeine Consumption? Heavy Information not available 07/05/2021 In The 14 Days Before Symptom Onset, Have You Had Close Contact With A Laboratory-confir [facility] COVID-19 While That Case Was Ill? No [email or web address] Information not available 07/05/2021 In The 14 Days Before Symptom Onset, Have You Had Close Contact With A Person Who Is Under Investigation For COVID-19 While That Person Was Ill? No [email or web address] Information not available 07/05/2021 Have You Been To An Area Known To Be High Risk For COVID-19? No [email or web address] Information not available 07/05/2021 Are You Deaf Or Do You Have Serious Difficulty Hearing? No [email or web address] Information not available 07/05/2021 What Type Of Diet Are You Following? REGULAR [email or web address] Information not available 07/05/2021 Which Illicit Or Recreational Drugs Have You Used? Marijuana [email or web address] Information not available 07/05/2021 Have You Ever Been Counseled For Unhealthy Alcohol Use? No [email or web address] Information not available 07/05/2021 Do You Use Your Seat Belt Or Car Seat Routinely? Yes [email or web address] Information not available 07/05/2021 Do You Have Smoke And Carbon Monoxide Detectors In Your Home? Yes [email or web address] Information not available 07/05/2021 Do You Use Sunscreen Routinely? Yes [email or web address] Information not available 07/05/2021 Has Tobacco Cessation Counseling Been Provided? No [email or web address] Information not available 07/05/2021 Have You Used IV Drugs? No [email or web address] Information not available 07/05/2021 Do You Have Difficulty Walking Or Climbing Stairs? No [email or web address] Information not available 12/06/2021 Sex: Unknown Functional Status Question Answer Note LastModified by Organizat ion Details LastModified Time Do you use any illicit or recreational drugs? Yes [email or web address] Information not available 07/05/2021 Do you or have you ever used any other forms of tobacco or nicotine? Yes [email or web address] Information not available 07/05/2021 What is your level of alcohol consumption? None [email or web address] Information not available 03/31/2025 Do you or have you ever used smokeless tobacco? Never used smokeless tobacco [email or web address] Information not available 07/05/2021 Are you able to walk independently without assistance or assistive devices? YESWOREST [email or web address] Information not available 07/05/2021 Are you able to care for yourself independently? Yes [email or web address] Information not available 12/06/2021 Do you have difficulty dressing, bathing, grooming, or toileting? No [email or web address] Information not available 12/06/2021 Do you or have you ever used e-cigarettes or vape? Current user of electronic cigarettes [email or web address] Information not available 07/05/2021 What is your exercise level? Occasional [email or web address] Information not available 07/05/2021 Mental Status Question Answer Note LastModified by Organization D etails LastModified Time Do you feel stressed (tense, restless, nervous, or anxious, or unable to sleep at night)? [id number] [email or web address] Information not available 07/05/2021 Family History Relationship Description Onset Age of this Age Resolved Age Notes LastModified by Organization Details LastModified Time Father No current problems or disability [email or web address] Not available 05/2021 09:06:31 Mother No current problems or disability [email or web address] Not available 05/2021 09:06:31 Medical History Condition [...] ICD10 Code Diagnosis IMO Codes Diagnosis [facility] [id number] [facility] [address] [address] 07/21/2025 09:28:54 07/21/2025 12:36:06 Pain in pelvis 08273671 R10.2 921984 Gestation period, 32 weeks 7888218 Z3A.32 6294087 [id number] Shawn Bradley MD [facility] [address],[place] [address] 08/04/2025 14:02:59 08/04/2025 15:06:33 Gestational diabetes mellitus 24009058 O24.410 O43.103 O43.113 Z3A.34 67154119 [id number] [facility] [address] [place] [address] 08/04/2025 14:21:57 08/04/2025 15:26:03 Gestation period, 34 weeks 99995078 Z3A.34 3272834 Pruritic d isorder of skin 2668196358 L29.9 72788 plan labs today, ursadiol BID [id number] [facility] [address] [place] [address] 08/11/2025 14:51:38 08/11/2025 17:16:44 Gestational diabetes mellitus 10302555 O24.414 57666116 [id number] Anju Mcnamara CNM [facility] [address] [place] [address] 08/11/2025 16:25:59 08/11/2025 17:46:32 Gestational diabetes mellitus 21233883 O24.414 10240401 [id number] Shawn Bradley MD [facility] [address] [place] [address] 08/18/2025 09:40:51 08/18/2025 10:15:47 Gestational diabetes mellitus 54508639 O24.414 Z3A.36 62029676 [id number] [facility] [address],[place] [address] 08/18/2025 09:41:06 08/18/2025 11:24:04 Gestation period, 36 weeks 57269415 Z3A.36 7030755 cont pnv [id number] [facility] [address],[place] [address] 08/18/2025 09:41:16 08/18/2025 16:17:31 Gestational diabetes mellitus class A2 51019615 O24.414 87179377 Health Concerns Section Related Observation LastModified by Organization Detai ls LastModified Time None Recorded Concern Status LastModified by Organization Details LastModified Time None Recorded Payers Encounter Date Sequence Insurance Name Policy Number Policy Roberts Covered Member ID Roberts Member ID Guarantor Name 08/18/2025 1 [facility] (MEDICAID HMO) [id number] Yuni Mejia [id number] Yuni Mejia Notes Date Note Type Note Provider Name and Address Organization Details Recorded Time 08/18/2025 text/html Generic HPI TemplateReported by Patient PATRIC Webb [address], [place], [address], [facility] 08/18/2025 11:23:41 OBGyn Episode Ob Episode Information Episode Created Date Number of Fetuses Patient Bloodtype Patient rh Status Prepregnancy Weight lbs Domestic Partner Domestic Partner Phone Father Name Marketing Teacher Status 03/02/20 25 1 B Positive 164 CLOSED Fetus Data First Name Last Name Admitted to NICU Weight (g) Sex Living Outcome Pediatric Complications Fetus ID Race Codes Race Delivery Type Gladis false 4025.62 9 F true Full Term 95978 Vaginal Delivery Problems Problem Notes SDH form completed 5GI consult Tachycardia Holter monitor 72 order- pt sent back on 03-27-25 Cardiology referral faxed per Dr Martínez office calling pt 04/21 to schedule consult scheduled 05/11 11:15AM Problem Name Start Date End Date Resolution Snomed Code Not e Uncomplicated moderate persistent asthma 03/02/2025 238187805 albuterol prn Abnormal placenta affecting management of mother 05/04/2025 50096897 MCI serial grow th us Iron deficiency anemia 05/25/2025 34447344 [facility] MFM tx [place] 200mg x1 HGB 10.6 Nausea and vomiting 03/02/2025 94424741 Anxiety 03/02/2025 31578459 sertralin e started 03/02/25 changed to prozac 10 on Gestational diabetes mellitus 07/08/2025 37681708 checking bs QID - ruled in GDM Referral faxed to [facility] 07/07 Frequent headache 05/03/2025 [id number] [place] to [facility] 05/21, discharge 05/23 [facility] referral faxed 05/24 [facility] Neurology consult pending per KAJAL Pittman [facility]- Neuro [facility] unable to see pt due to insurance 05/25[facility] 07/05/25 Level US & Consult (see [facility] consult zayas recommendations ) regimen prn Imitrex 50mg for acute migraine, vitamin B2 (Riboflavin) 400mg, Coenzyme q10 300mg and magnesium oxide 200 to 600mg daily. minimize use of Excedrin or Tylenol to no more than 2-3 times a week. 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/2025 6568042 32wk growth us Jun Calculation Initial Jun [...] Weight in lbs Pre/Post Dialysis Refused Weight 158.311713460333 BP Diastolic BP Location Tested BP Systolic [...] Weight in lbs Pre/Post Dialysis Refused Weight 158.913105358448 BP Diastolic BP Location Tested BP Systolic [...] Weight in lbs Pre/Post Dialysis Refused Weight 162.911005144992 BP Diastolic BP Location Tested BP Systolic BP Type 78 123 Fetus Heart Rate Present A 148 Fetus Movement A Yes Comments Patient is having having ronny n, cramping and vaginal discharge. 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 rfilled zofran, precautions and education [...] Type Weight in lbs Pre/Post Dialysis Refused 168.902161888313 BP Diastolic BP Location Tested BP Systolic [...] Type Weight in lbs Pre/Post Dialysis Refused 169.640134082010 BP Diastolic BP Location Tested BP Systolic [...] Weight in lbs Pre/Post Dialysis Refused Weight 175.697088897944 BP Diastolic BP Location Tested BP Systolic [...] Weight in lbs Pre/Post Dialysis Refused Weight 182.488181283851 BP Diastolic BP Location Tested BP Systolic [...] Weight in lbs Pre/Post Dialysis Refused Weight 181.637182724629 BP Diastolic BP Location Tested BP Systolic BP Type 73 L arm 131 sitting Fetus Heart Rate Present Fetus Movement A Yes Comments viral URI testied neg at urg ent care, nausea resolved, efw 68%, +FM plan education and precautions f/u 2 weeks diagnosed GDM, plan trim installer, gave list reviewed protein vs carb Flowsheet Date 07/21/2025 Gibson Score Blood Edema Fundus Height Fundus Units Glucose Ketones Leukocytes Nitrite Labor Signs Protein Cervic Dilation Cervic Effacement Cervic Station Type Weight in lbs Pre/Post Dialysis Refused Weight 181.554721194301 BP Diastolic BP Location Tested BP Systolic BP Type 78 L arm 127 sitting Fetus Heart Rate Present A 150 Fetus Movement A Yes Comments rpt urine culture +FM review ed blood sugars, meets with trim installer today, precautions and education f/u 2 weeks [...] Weight in lbs Pre/Post Dialysis Refused Weight 181.042164509379 BP Diastolic BP Location Tested BP Systolic [...] Weight in lbs Pre/Post Dialysis Refused Weight 183.885214389563 BP Diastolic BP Location Tested BP Systolic [...] Type Weight in lbs Pre/Post Dialysis Refused 184.169745194207 BP Diastolic BP Location Tested BP Systolic [...] Type Weight in lbs Pre/Post Dialysis Refused 184.184454768510 BP Diastolic BP Location Tested BP Systolic [...] Type Weight in lbs Pre/Post Dialysis Refused 184.199498631673 BP Diastolic BP Location Tested BP Systolic [...] Weight in lbs Pre/Post Dialysis Refused Weight 184.239166394872 BP Diastolic BP Location Tested BP Systolic [...] Weight in lbs Pre/Post Dialysis Refused Weight 164.858008149373 BP Diastolic BP Location Tested BP Systolic [...]
--- OUTSIDE RECORDS SUMMARY | 2025-09-16 17:55 | XMS_ITS ---
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 NO GROUP A STREP BY PCR - Colle ct Date/Time: 05/14/2024 11:48 [facility] ID: [id number] [address] [place], [place], [id number] LOINC: 94013-9 Test Value Unit Reference Range Code Code System Flag GRP A STREP PCR NEGATIVE NORMAL: NEGATIVE Social History Type Status Start Date End Date Code Code Syst em Smoking History Never smoker (Never Smoked) 716222335 SNOMED CT Sex Female Assessment You had [...] 6002 SNOMED-CT UNSPECIFIED ABDOMINAL PAIN active 215 73117 SNOMED-CT Allergies and Adverse Reactions Allergy Substance Reaction Severity Start Date Concern Status Co de Code System AMOXICILLIN Active 723 RxNorm TERBUTALINE Active 56574 RxNorm Plan of Treatment Stress Test Treadmill 01/21/2025 Battery Technician Consult 04/27/2025 Encounters Encounter Diagnosis Start Date Code Code Sys tem Acute upper respiratory infection, unspecified 024 SNOMED-CT Personal Care Team Section Performer Name Performer Role Active Date Inactive Da te KRAIG ESTRADA PCP - Primary care physician 2021-10 02024-09-12 KRAIG ESTRADA PCP - Primary care physician 0 -10 2024-09-12 KRAIG ESTRADA PCP - Primary care physician 0 -10 2024-09-12 KRAIG ESTRADA PCP - Primary care physician 0 -16 2024-09-12 Hong Abdi PCP - Primary care physician 2024-09-12
--- OUTSIDE RECORDS SUMMARY | 2025-09-16 17:55 | XMS_ITS ---
Author Organization Unknown Address [id number] [place] [phone] Phone Care Team Providers Care Stick Puller Name Role Phone ANNABELLE GONZALEZ Attending Unavailable [...] CBC W/ DIFF - Collect Date/T randall: 06/25/2024 08:22 [facility] ID: [id number] [address] [place], [place], [phone] LOINC: 10467-2 Test Value Unit Reference Range Code Code System Flag WBC 14.4 10^3uL L=4.8 H=10.8 H RBC 4.94 10^6uL L=4.20 H=5.40 HEMOGLOBIN 12.8 g/dL L=12.0 H=16.0 718-7 LOINC HEMATOCRIT 40.8 VOL% L=37.0 H=47.0 4544-3 LOINC MCV 82.6 fL L=81.0 H=99.0 MCH 25.9 pg L=27.0 H=32.0 L MCHC 31.4 g/dL L=32.0 H=36.0 L PLATELETS 329 10^3uL L=100 H=400 51558-0 LOINC RDW 14.0 % L=11.7 H=15.5 %GRAN 75.9 % L=40.0 H=70.0 86908-6 LOINC H %LYMPH 14.7 % L=20.0 H=45.0 736-9 LOINC L %MONO 8.6 % L=2.0 H=10.0 45546-0 LOINC %EOS 0.1 % L=0.0 H=6.0 713-8 LOINC %BASO 0.1 % L=0.0 H=3.0 706-2 LOINC #NEUT 10.9 10^3uL L=1.9 H=7.6 93856-5 LOINC H #LYMPH 2.1 10^3uL L=0.9 H=4.9 90928-9 LOINC #MONO 1.2 10^3uL L=0.1 H=0.9 29765-1 LOINC H #EOS 0.0 10^3uL L=0.0 H=0.6 712-0 LOINC #BASO 0.02 10^3uL L=0.00 H=0.10 25396-6 LOINC #IM GRANS 0.1 10^3uL L=0.0 H=7.0 12600-0 LOINC %IM GRANS 0.6 % L=0.0 H=5.0 07984-8 LOINC %NRB 0.0 L=0.0 H=0.2 17216-6 LOINC #NRB 0.000 L=0.000 H=0.012 25029-8 LOINC MANUAL DIFF NOT INDICATED RBC MORPH NOT INDICATED COMPREHENSIVE METABOLIC PANE L - Collect Date/Time: 06/25/2024 08:22 [facility] ID: [id number] [address] [place], [place], [phone] LOINC: 48146-6 Test Value Unit Reference Range Code Code System Flag FASTING UNKNOWN BUN 14 mg/dL L=7 H=20 3094-0 LOINC CREATININE 0.70 mg/dL L=0.52 H=1.04 2160-0 LOINC GLUCOSE 114 mg/dL L=74 H=106 2345-7 LOINC H SODIUM 139 mmol/L L=132 H=144 2951-2 LOINC POTASSIUM 3.8 mmol/L L=3.5 H=5.1 2823-3 LOINC CHLORIDE 106 mmol/L L=98 H=107 2075-0 LOINC CO2 23.0 mmol/L L=22.0 H=30.0 2028-9 LOINC ANION GAP 14 L=10 H=20 44253-7 LOINC OSMOLALITY 289 mOs/kG L=280 H=296 87154-7 LOINC BUN/CREAT 20.0 3097-3 LOINC CALCIUM 9.4 mg/dL L=8.3 H=10.5 04708-0 LOINC AST 24 U/L L=15 H=46 1920-8 LOINC ALT 21 U/L L=9 H=72 1742-6 LOINC ALKALINE PHOS 87 U/L L=38 H=126 6768-6 LOINC TOTAL BILI 0.4 mg/dL L=0.2 H=1.3 1975-2 LOINC ALBUMIN 4.5 G/dL L=3.5 H=5.0 1751-7 LOINC TOTAL PROTEIN 7.8 g/L L=6.3 H=8.2 2885-2 LOINC A/G RATIO 1.4 13409-7 LOINC AGE 24 18077-4 LOINC eGFR NON-AFR 108 ml/min eGFR AFR AMER 131 ml/min TROPONIN LEVEL - Collect Neil e/Time: 06/25/2024 08:22 [facility] ID: [id number] [address] [place] [address], [phone] LOINC: 93581-0 Test Value Unit Reference Range Code Code System Flag TROPONIN < 0.012 ng/mL L=0.000 H=0.033 20099-2 LOINC RESPIRATORY PATHOGEN PANEL + SARS PCR - Collect Date/Time: 06/25/2024 08:17 [facility] ID: [id number] [address] [place] [address], [phone] LOINC: 48025-1 Test Value Unit Reference Range Code Code System Flag ADENOVIRUS NOT DETECTED NORMAL: NOT DETECTED 5778-6 [facility] CORONAVIRUS 229E NOT DETECTED NORMAL: NOT DETECTED 5778-6 LOINC CORONAVIRUS HKU1 NOT DETECTED NORMAL: NOT DETECTED 5778-6 [facility] CORON[facility] NL63 NOT DETECTED NORMAL: NOT DETECTED 5778-6 [facility] CORON[facility] OC43 NOT DETECTED NORMAL: NOT DETECTED 5778-6 [facility] CORONAVIRUS COVID-19 NOT DETECTED NORMAL: NOT DETECTED 94837-6 LOINC H METAPNEUMOVIRUS NOT DETECTED NORMAL: NO T DETECTED 5778-6 LOINC H RHINO/ENTEROVIRUS DETECTED NORMAL: NOT DETECTED 5778-6 LOINC INFLU [...] NORMAL: NOT DETECTED 5778-6 LOINC SEND TO [facility]? YES GROUP A STREP BY PCR - Colle ct Date/Time: 06/25/2024 08:17 [facility] ID: [id number] [address] [place], [place], [phone] LOINC: 33930-5 Test Value Unit Reference Range Code Code System Flag GRP A STREP PCR NEGATIVE NORMAL: NEGATIVE CHEST 2V - Completed: 2023 09:09 LOINC: EXAM DESCRIPTION: CHEST 2V REASON FOR STUDY: smoker sob x's 3 days Duration: 3 days TECHNIQUE: Frontal and lateral radiographic view(s) of the chest. COMPARISON: 06/23/2024 FINDINGS: LUNGS: No focal opacity, pleural effusion, or pneumothorax. HEART/MEDIASTINUM: Cardiac silhouette normal in size. Mediastinal and hilar contours appear normal. LINES/TUBES: None. BONES: No acute osseous abnormality. IMPRESSION: No acute cardiopulmonary abnormality. THIS IS AN ELECTRONICALLY VERIFIED FINAL REPORT 06/25/2024 9:25 AM - Electronically signed by David Wolf M.D. AM: AM Report ID: [id number] Reading Location: [id number] Social History Type Status Start Date End Date Code Code Syst em Smoking History Never smoker (Never Smoked) 916992429 SNOMED CT Sex Female Assessment You had [...] 6002 SNOMED-CT UNSPECIFIED ABDOMINAL PAIN active 215 17330 SNOMED-CT Allergies and Adverse Reactions Allergy Substance Reaction Severity Start Date Concern Status Co de Code System AMOXICILLIN Active 723 RxNorm TERBUTALINE Active 01448 RxNorm Plan of Treatment Stress Test Treadmill 01/21/2025 Fur Joiner Consult 04/27/2025 Encounters Encounter Diagnosis Start Date Code Code Sys tem Acute nasopharyngitis [common cold] 06/25/2024 SNOMED-CT Personal Care Team Section Performer Name [...]
--- OUTSIDE RECORDS SUMMARY | 2025-09-16 17:55 | XMS_ITS | Continuity of Care Document ---
Author Organization [facility], [facility] Address [address] [place] [address] Care Team Providers Care Commercial Escrow Assistant Name Role Phone CARLOS ESTRADA Primary Care [...] Available [facility] [address], [place], [address], 03/06/2025 03:58:26 03/06/20 25 03/06/2025 [UNIT Y] ANEUP LOIDY NIPT sex chromosome aneuploidy NOT DETECT ED normal Not Available [facility] [address], [place], [address], 03/06/2025 03:58:26 03/06/20 25 03/06/2025 [UNIT Y] ANEUP LOIDY NIPT monosomy X LOW RISK <1 in 10,000 normal Not Available [facility] [address], [place], [address], 03/06/2025 03:58:26 03/06/20 25 03/06/2025 [UNIT Y] ANEUP LOIDY NIPT trisomy 13 LOW RISK <1 in 10,000 normal Not Available [facility] [address], [place], [address], 03/06/2025 03:58:26 03/06/20 25 03/06/2025 [UNIT Y] ANEUP LOIDY NIPT trisomy 18 LOW RISK <1 in 10,000 normal Not Available [facility] [address], [place], [address], 03/06/2025 03:58:26 03/06/20 25 03/06/2025 [UNIT Y] ANEUP LOIDY NIPT trisomy 21 LOW RISK <1 in 10,000 normal Not Available [facility] [address], [place], [address], 03/06/2025 03:58:26 03/06/20 25 03/06/2025 [UNIT Y] ANEUP LOIDY NIPT sex FEMALE normal Not Available [facility] [address], [place], [address], 03/06/2025 03:58:26 03/06/20 25 03/06/2025 [UNIT Y] ANEUP LOIDY NIPT gestation SINGLE TON normal Not Available [facility] [address], [place], [address], 03/06/2025 03:58:26 03/06/20 25 03/06/2025 [UNIT Y] ANEUP LOIDY NIPT for detailed report, see pdf See PDF normal Not Available [facility] [address], [place], [address], 03/06/2025 03:58:26 03/02/20 25 03/02/2025 CULTU RE: URINE result report SEE RESULT S BELOW Test: Cultu re: Urine Speci men Sourc e: Urine - Clean Catch Speci men Type: Urine Speci men Date: 025 1455 Resul t Date: 025 2138 Resul t Statu s: Final resul t Abnor mal: No Resul ting Lab: [facility] [address] [facility] [address] Tel: CULTU RE ----- ----- ----- --- No growt h in 1 day (dete ction level of 10,00 0 colon ies / ml.) Not Available [facility] (Lab) [address] [facility], [place], [address], 03/03/2025 22:42:27 03/12/2003/12/2025 CULTU RE: URINE result report SEE RESULT S BELOW Test: Cultu re: Urine Speci men Sourc e: Urine - Clean Catch Speci men Type: Urine Speci men Date: 2024 1600 Resul t Date: 2024 0610 Resul t Statu s: Final resul t Abnor mal: No Resul ting Lab: [facility] [address] [facility] [address] Tel: CULTU RE ----- ----- ----- --- No growt h in 1 day (dete ction level of 10,00 0 colon ies / ml.) Not Available [facility] (Lab) [address], [place], [address], 03/14/2025 07:15:03 03/12/2003/12/2025 urina lysis , dipst ick Leukocytes ++ Not Available [facility] [address], [place], [address], 03/12/2025 16:45:06 03/12/20 25 03/12/2025 urina lysis , dipst ick Protein + Not Available [facility] [address], [place], [address], 03/12/2025 16:45:06 03/12/20 03/12/2025 urina lysis , dipst ick pH 5 Not Available [facility] [address], [place], [address], 03/12/2025 16:45:06 03/12/20 25 03/12/2025 urina lysis , dipst ick Blood trace Not Available [facility] [address], [place], [address], 03/12/2025 16:45:06 03/12/20 25 03/12/2025 urina lysis , dipst ick Specific [place] 1.015 Not Available [facility] [address], [place], [address], 03/12/2025 16:45:06 03/12/20 25 03/12/2025 urina lysis , dipst ick Ketone +++ Not Available [facility] [address], [place], [address], 03/12/2025 16:45:06 03/31/20 25 03/31/2025 TSH, REFLE X FREE T4 TSH 0.42 uIU/m L 0.30-5 .33 Not Available [facility] (Lab) [address] [facility], [place], [address], 04/01/2025 03:05:12 03/31/20 25 03/31/2025 CULTU RE: URINE result report SEE RESULT S BELOW Test: Cultu re: Urine Speci men Sourc e: Urine Voide d Speci men Type: Urine Speci men Date: 1710 Resul t Date: 6 Resul t Statu s: Final resul t Abnor mal: No Resul ting Lab: [facility] [address] [facility] [address] Tel: CULTU RE ----- ----- ----- --- Cultu re resul t (>=3 organ isms prese nt) indic ates possi ble conta minat ion. Repea t cultu re if sympt oms indic ate. Not Available [facility] (Lab) [address], [place], [address], 04/01/2025 23:59:19 03/31/20 25 03/31/2025 urina lysis , dipst ick Leukocytes +1 Not Available [facility] [address], [place], [address], 03/31/2025 09:23:13 03/31/20 25 03/31/2025 urina lysis , dipst ick Nitrite normal Not Available [facility] [address], [place], [address], 03/31/2025 09:23:13 03/31/20 25 03/31/2025 urina lysis , dipst ick Urobilinogen normal Not Available [facility] david [address], [place], [address], 03/31/2025 09:23:13 03/31/20 25 03/31/2025 urina lysis , dipst ick Protein trace Not Available [facility] [address], [place], [address], 03/31/2025 09:23:13 03/31/20 25 03/31/2025 urina lysis , dipst ick pH 5 Not Available [facility] [address], [place], [address], 03/31/2025 09:23:13 03/31/20 25 03/31/2025 urina lysis , dipst ick Specific [place] 1.020 Not Available [facility] [address], [place], [address], 03/31/2025 09:23:13 03/31/20 25 03/31/2025 urina lysis , dipst ick Ketone normal Not Available [facility] [address], [place], [address], 03/31/2025 09:23:13 03/31/20 25 03/31/2025 urina lysis , dipst ick Bilirubin normal Not Available [facility] anna [address], [place], [address], 03/31/2025 09:23:13 03/31/20 25 03/31/2025 urina lysis , dipst ick Glucose normal Not Available [facility] [address], [place], [address], 03/31/2025 09:23:13 03/31/20 25 03/31/2025 urina lysis , dipst ick Appearance normal Not Available [facility] domingo [address], [place], [address], 03/31/2025 09:23:13 03/31/20 25 03/31/2025 urina lysis , dipst ick Color normal Not Available [facility] [address], [place], [address], 03/31/2025 09:23:13 04/01/20 25 04/01/2025 WOMEN 'S HEALT H SWAB PLUS, DENIS bacterial vaginosis (bv), tma Negati ve negati ve Not Available [facility] (Lab) [address] [place] [place], [address], 04/02/2025 14:08:45 04/01/20 25 04/01/2025 WOMEN 'S HEALT H SWAB PLUS, DENIS mekhi species, tma Negati ve negati ve Not Available [facility] (Lab) [address] [place], [address], 04/02/2025 14:08:45 04/01/20 25 04/01/2025 WOMEN 'S HEALT H SWAB PLUS, DENIS mekhi glabrata, tma Negati ve negati ve Not Available [facility] (Lab) [address] [place], [address], 04/02/2025 14:08:45 04/01/2004/01/2025 WOMEN 'S HEALT H SWAB PLUS, DENIS trichomonas vaginalis, tma Negati ve negati ve Not Available [facility] (Lab) [address] [facility], [place], [address], 04/02/2025 14:08:45 04/01/2004/01/2025 [facility], DENIS chlamydia trachomatis, PCR Negati ve negati ve Not Available [facility] (Lab) [address] [place], [address], 04/02/2025 14:08:45 04/01/2004/01/2025 WOMEN 'S HEALT H [...] ded in this panel . Not Available [facility] (Lab) [address] [facility], [place], [address], 04/02/2025 14:08:45 04/22/2004/22/2025 CULTU RE: URINE result report SEE RESULT S BELOW Test: Cultu re: Urine Speci men Sourc e: Urine Voide d Speci men Type: Urine Speci men Date: 2024 1314 Resul t Date: 2024 0322 Resul t Statu s: Final resul t Abnor mal: No Resul ting Lab: [facility] [address] [facility] [address] [facility] [address] Tel: CULTU RE ----- ----- ----- --- No growt h in 1 day (dete ction level of 10,00 0 colon ies / ml.) Not Available [facility] (Lab) [address] [facility], [place], [address], 04/24/2025 04:28:01 04/22/20 25 04/22/2025 urina lysis , dipst ick Leukocytes + Not Available [facility] dom[address], [place], [address], 04/22/2025 10:01:51 04/22/20 25 04/22/2025 urina lysis , dipst ick Protein + Not Available [facility] [address], [place], [address], 04/22/2025 10:01:51 04/22/20 25 04/22/2025 urina lysis , dipst ick pH 8 Not Available [facility] [address], [place], [address], 04/22/2025 10:01:51 04/22/20 25 04/22/2025 urina lysis , dipst ick Blood + Not Available [facility] [address], [place], [address], 04/22/2025 10:01:51 04/22/20 25 04/22/2025 urina lysis , dipst ick Specific [place] 1.010 Not Available [facility] [address], [place], [address], 04/22/2025 10:01:51 04/22/2004/22/2025 urina lysis , dipst ick Ketone + Not Available [facility] [address], [place], [address], 04/22/2025 10:01:51 06/23/2006/23/2025 HEMAT OCRIT (HCT) HCT 35.6 % (based on docume nted legal sex) 34.0-4 5.0 Not Available [facility] (Lab) [address] [facility], [place], [address], 06/24/2025 11:45:32 06/23/20 25 06/23/2025 HEMOG LOBIN (HGB) HGB 11.1 g/dL (based on docume nted legal sex) 11.6-1 5.4 low Not Available [facility] (Lab) [address] [facility], [place], [address], 06/24/2025 11:45:32 06/23/20 25 06/23/2025 GTT - GESTA ROLAND L JOSE N, ACOG OB glucose, 1 hour screen 180 mg/dL 70-135 high Not Available [facility] (Lab) [address] [place], [address], 06/24/2025 11:45:33 06/23/20 25 06/23/2025 HIV 1/2 ANTIG EN/AN TIBOD Y, REFLE X CONFI RMATI ON HIV antigen/anti body Nonrea ctive nonrea ctive HIV-1 antig en and HIV-1 /HIV- 2 antib odies were not detec grge. No labor atory evide nce of HIV infec tion. Not Available [facility] (Lab) [address], [place], [address], 06/24/2025 11:45:33 08/06/23/2025 RPR SCREE N, REFLE X TITER /CONF IRMAT ION RPR qualitative Nonrea ctive nonrea ctive Not Available [facility] (Lab) [address], [place], [address], 06/24/2025 11:45:34 03/02/20 25 03/02/2025 US, obste tric, nucha l trans lucen cy No observ ation record ed. [email or web address] [facility] [address], [place], [address], 03/02/2025 13:35:30 03/02/20 25 03/02/2025 US, obste tric, nucha l trans lucen cy No observ ation record ed. [email or web address] [address], [place], [address], 03/03/2025 14:08:39 03/08/20 25 03/08/2025 US, obste tric, 1st trime ster No observ ation record ed. [email or web address] [facility] [address], [place], [address], 03/08/2025 12:22:22 03/08/20 25 03/08/2025 US, obste tric, 1st trime ster No observ ation record ed. [email or web address] Esha [address], [place], [address], 03/10/2025 15:03:13 04/01/20 25 03/24/2025 qamar r monit or No observ ation record ed. [address] [facility] [address] [place] [address], [address], 04/08/2025 12:36:45 04/01/20 25 03/22/2025 qamar r monit or No observ ation record ed. [address] (Pulmonary) [address] [facility] [address] [place] [address], [address], 04/06/2025 08:59:34 04/20/20 25 04/20/2025 US, obste tric, limit ed No observ ation record ed. [email or web address] [facility] [address], [place], [address], 04/20/2025 17:39:30 04/20/20 25 04/20/2025 US, obste tric, follo w-up No observ ation record ed. [email or web address] [address], [place], [address], 04/23/2025 08:32:54 04/28/20 25 04/28/2025 US, obste tric, 2nd or 3rd trime ster No observ ation record ed. [email or web address] [facility] [address], [place], [address], 04/28/2025 17:48:42 04/28/20 25 04/28/2025 US, obste tric, 2nd or 3rd trime ster No observ ation record ed. [email or web address] [address], [place], [address], 05/04/2025 22:16:11 05/07/20 25 05/07/2025 non-s tress test No observ ation record ed. [address] [facility] [address], [place], [address], 05/28/2025 13:33:54 05/21/20 25 05/21/2025 CT, head + brain , w/o contr ast No observ ation record ed. [address] [facility] [address], [place], [address], 05/24/2025 13:48:57 05/28/20 25 05/28/2025 US, obste tric, follo w-up No observ ation [facility] ed. [email or web address] [address], [place], [address], 05/28/2025 17:32:34 05/28/20 25 05/28/2025 US, obste tric, follo w-up No observ ation record ed. [email or web address] [address], [place], [address], 06/01/2025 15:13:13 06/08/20 25 06/07/2025 US, obste tric, follo w-up No observ ation record ed. [email or web address] [facility] [address] [facility], [place], [address], 06/15/2025 10:53:46 07/07/20 25 07/07/2025 US, obste tric, follo w-up No observ ation record ed. [email or web address] [facility] [address], [place], [address], 07/07/2025 13:18:01 07/07/20 25 07/07/2025 US, obste tric, follo w-up No observ ation record ed. [email or web address] [address], [place], [address], 07/07/2025 11:29:37 08/04/20 25 08/04/2025 US, obste tric, follo w-up No observ ation record ed. [email or web address] [facility] [address], [place], [address], 08/04/2025 15:08:50 08/04/20 25 08/04/2025 US, obste tric, follo w-up No observ ation record ed. [email or web address] [address], [place], [address], 08/06/2025 10:41:50 08/11/20 25 08/11/2025 non-s tress test No observ ation record ed. [address], [place], [address], 08/11/2025 17:37:52 08/11/20 non-s tress test No observ ation record ed. [facility] [address], [place], [address], 08/11/2025 17:38:11 08/15/2008/15/2025 non-s tress test No observ ation record ed. [address], [place], [address], 08/21/2025 10:18:57 08/15/2008/15/2025 US, obste tric, bioph ysica l profi le No observ ation record ed. [address], [place], [address], 08/17/2025 10:50:53 08/18/2008/18/2025 US, obste tric, bioph ysica l profi le + non-s tress test No observ ation record ed. [email or web address] [facility] [address], [place], [address], 08/18/2025 10:21:39 08/18/2008/18/2025 US, obste tric, bioph ysica l profi le + non-s tress test No observ ation record ed. [email or web address] [address], [place], [address], 08/18/2025 10:35:44 08/18/2008/18/2025 non-s tress test No observ ation record ed. [email or web address] [facility] [address], [place], [address], 08/18/2025 17:34:03 08/18/20 non-s tress test No observ ation record ed. [facility] [address], [place], [address], 08/18/2025 16:06:09 08/25/2008/25/2025 US, obste tric, bioph ysica l profi le + non-s tress test No observ ation record ed. [facility] [address], [place], [address], 08/25/2025 18:52:06 08/25/2008/25/2025 US, obste tric, follo w-up No observ ation record ed. joelle Esha [address], [place], [address], 08/25/2025 15:47:28 08/25/20 25 08/25/2025 non-s tress test No observ ation record ed. [address], [place], [address], 08/25/2025 18:12:15 08/25/20 non-s tress test No observ ation record ed. [address], [place], [address], 08/25/2025 17:21:19 08/30/20 25 08/30/2025 non-s tress test No observ ation record ed. [address] [facility], [place], [address], 09/15/2025 15:26:49 09/01/20 25 09/01/2025 non-s tress test No observ ation record ed. [place] [address] [facility] [address], [place], [address], 09/13/2025 11:32:22 09/01/20 25 09/01/2025 US, obste tric No observ ation record ed. [email or web address], [place], [address], 09/02/2025 15:56:01 09/01/20 25 09/01/2025 non-s tress test No observ ation record ed. [email or web address] [place] [address] [address], [place], [address], 09/02/2025 14:32:38 09/16/20 25 09/16/2025 imagi ng/di agnos tic resul t No observ ation record ed. [place] [id number] [facility] [address], [place], [address], 09/16/2025 18:07:05 Result Notes None recorded. Problems Name Problem SNOMED Code Status Onset Date Resolution Date Notes Provider Name and Address Organization Details Recorded Time Hypereme sis 459155864 Completed phenerga n now prn Asiaamadeo ramos [facility] 2 16:43:51 Anxiety in pregnanc y 7056482708 9109 Completed will continue to monitor Asia Luis ramos [facility] 2 16:43:51 Past pregnanc y history of gestatio nal diabetes mellitus 534423470 Completed Early 1 hr GTT @ 20wks 11/03 APPT Asia Luis arias [facility] 2 16:43:51 Spinal muscular atrophy 9118008 Completed Carrier - Not in contact with FOB. Asiaamadeo ramos [facility] 2 16:43:51 Anxiety 18379737 Completed prozac Karina ramos [facility] 4 11:00:46 Nausea 560648307 Completed d/c zofran pump 11/08 per pt request Karina ramos [facility] 4 11:00:46 Postpart um hemorrha ge [id number] Completed hx of - 2018 with d&c Karina ramos [facility] 4 11:00:46 Normal pregnanc y in multigra jessy 0743956116 11487 Completed 201907/05/2021 Encounte r for supervis ion of other normal pregnanc y, 3rd trimeste r;Record ed Elsewher e: No [facility] [employer] Cook yvrose: N Dennis ce ID: 0001 Gigi lable Time: 10:45:00 AM Karina ramos [facility] 1 10:15:27 Gestatio n period, 37 weeks 89225899 Completed 201907/05/2021 37 weeks gestatio n of pregnanc y;Record ed Elsewher e: No Locat ion: [facility] S ource: [employer] Cook yvrose: Laura Collins ce ID: 0001 Gigi lable Time: 09:00:00 AM Karina ramos [facility] [address] 10:15:[address] Concept Completed 201907/05/2021 Matern care for abnlt fetl hrt rate or rhym, 3rd tri, unsp;Rec orded Elsewher e: No Locat ion: [facility] S ource: [employer] Cook yvrose: N Dennis ce ID: 0001 Gigi lable Time: 08:45:00 AM Karina ramos [facility] 1 10:15:29 Gestatio nal diabetes mellitus 78328756 Completed 201907/05/2021 Gestatio nal diabetes mellitus in pregnanc y, diet controll ed;Recor ded Elsewher e: No Locat ion: [facility] S ource: [employer] Cook yvrose: N Natalyati ce ID: 0001 Gigi lable Time: 11:45:00 AM Karina ramos [facility] 1 10:15:25 Gestatio n period, 38 weeks 96962009 Completed 201907/05/2021 38 weeks gestatio n of pregnanc y;Record ed Elsewher e: No Locat ion: Jaelyn castillo [facility] S ource: [employer] Cook yvrose: N Practi ce ID: 0001 Gigi lable Time: 11:30:00 AM Karina Burroughs null, [facility] 10:15:13 Amenorrh ea 33850715 Completed 202007/10/2021 Tammi Jones null, [facility] 13:08:35 Pregnanc y 21049122 Completed 202003/29/2022 Emma Dykes [facility], [facility] 12:28:48 Pregnanc y 56715674 Completed 202304/22/2024 Emma Dykes null, [facility] 12:28:48 Headache 83187146 Active 2023 Karina Burroughs null, [facility] 5 16:19:28 Pregnanc y 06900353 Completed 202309/14/2025 Emma Dykes null, [facility] 12:28:48 Uncompli cated moderate persiste nt asthma 247722212 Completed 2024 albutero l prn Shawn Bradley MD [address], [place], [address], [place] [facility] 5 13:08:36 Anxiety 75318209 Completed 2024 sertrali ne started 03/02/25 changed to prozac 10 on Shawn Bradley MD [address], [place], [address], [place] [facility] 5 17:05:48 Nausea and vomiting 11649060 Completed 2024 Shawn Bradley MD [address], [place], [address], [facility] 5 13:20:27 Placenta circumva llata 0819956 Completed 2024 32wk [facility] 09:44:35 Frequent headache 505497852 Completed 2024 transpor t to [facility] 05/21, discharg e 05/23 [facility] referral faxed 05/24 [facility] consult pending per KAJAL Pittman [facility]- Neuro [facility] unable to see [...] than 2-3 times a week. Ryann ramos [facility] 5 10:55:26 Abnormal placenta affectin g manageme nt of mother 50475225 Completed 2024 [facility]CI serial growth Ryann ramos [facility] 5 10:46:25 Iron deficien cy anemia 22305342 Completed 2024 [facility] tx venofer 200mg x1 HGB 10.6 Ryann Matthew ramos [facility] 5 15:21:25 Gestatio nal diabetes mellitus 45258915 Completed 2024 checking bs QID - ruled in GDM Referral faxed to [facility] 07/07 Ryann ramos [facility] 5 14:36:52 Notes:Order faxed to vascula r access 08/10 for PICC line, and home health already caring for ptHilda Vladimir RN at [phone] Problem Notes None recorded. Procedures Surgical History Date Name Laterality Status Provider Name and Address Organization Details Recorded Time 025 SALPINGECTOMY, LAPAROSCOPIC (SURG) completed Not Available [facility] 09/06/2025 11:19:17 025 Date of Last Pap Smear completed Karina Burroughs [facility] 01/28/2025 11:19:42 024 Nexplanon Removal completed Shawn Bradley MD [address], [place], [address], [facility] 08/05/2024 15:09:58 024 Control Implant Insertion completed Anju Mcnamara CNM [address], [place], [address], [facility] 05/08/2024 17:59:34 024 cholecystectomy completed Karina Burroughs [facility] 03/31/2025 09:18:57 018 Dilation and Curettage completed Karina Burroughs [facility] 07/05/2021 10:17:50 Imaging Results None recorded. Procedure Notes None recorded. Medical Equipment None Reported. Allergies Allergen ID Allergen Name Allergen Category Reaction Reaction Severity Criticality Documentation Date Start Date Code Code System Note Provider Name and Address Organization Details Recorded Time 87099 terbutali ne medicatio n anaphylax is Not available Not available 01/27/20252021 56537 RxNorm Karina Burroughs [facility] 16:19:27 96048 amoxicill in medicatio n Not available Not available Not available 09/10/2025 723 RxNorm Not Available [facility] - External Data Service - prod 16:39:37 43880 terbinafi ne medicatio n anaphylax is Not available [facility] 09/10/20252024 52507 RxNorm Not Available gene - External Data [...] active Not Available Not Available Not Avai labdomingo terconazo le 0.8 % vaginal cream INSERT [...] 1 tablet every day by oral route. 11/18 /2021 completed Not Available Not Available Not [...] ed Elsewher e: Yes Loca tion: [facility] odify By: prabhjot Lee r [...] n (supplie d by office) insert lot [id number] Exp 01/2026 Not Available Not Available Not Available 28 mg iron-800 mcg tablet 07/05 completed Prescrib ed Elsewher e: Yes Loca tion: [facility] M odify By: prabhjot Lee r DateTime : 01/14/20 10:45:00 AM Not Available Not Available Not Available lidocaine 5 % topical ointment APPLY OINTMENT EXTERNAL LY TO RIBS THREE TIMES DAILY NEEDED 01/14 completed Not Available Not Available Not Available [employer]-PNV-DH A 28 mg iron-1 mg-200 mg capsule [...] Updated DateTime 06/23/2025 162.56 cm 31.2 kg/m2 20312.81 g 127/77 mm[Hg] Toya Perkins [facility] 06/23/2025 14:17:59 Social History Question Answer Notes LastModified by Organizat ion Details LastModified Time Tobacco Smoking Status Former Smoker Karina ramos, [facility] 07/05/2021 09:06:21 If You Are , What Was Your Level Of Alcohol Consumption Prior To ? Occasional [email or web address] Information not available 03/31/2025 Are You Blind Or Do You Have Difficulty Seeing? No [email or web address] Information not available 07/05/2021 What Is Your Level Of Caffeine Consumption? Heavy [email or web address] Information not available 07/05/2021 In The 14 Days Before Symptom Onset, Have You Had Close Contact With A Laboratory-confir med COVID-19 While That Case Was Ill? No [email or web address] Information not available 07/05/2021 In The 14 Days Before Symptom Onset, Have You Had Close Contact With A Person Who Is Under Investigation For COVID-19 While That Person Was Ill? No [email or web address] Information not available 07/05/2021 Have You Been To An Area Known To Be High Risk For COVID-19? No [email or web address] Information not available 07/05/2021 Are You Deaf Or Do You Have Serious Difficulty Hearing? No [email or web address] Information not available 07/05/2021 What Type Of Diet Are You Following? REGULAR [email or web address] Information not available 07/05/2021 Which Illicit Or Recreational Drugs Have You Used? Marijuana [email or web address] Information not available 07/05/2021 Have You Ever Been Counseled For Unhealthy Alcohol Use? No [email or web address] Information not available 07/05/2021 Do You Use Your Seat Belt Or Car Seat Routinely? Yes [email or web address] Information not available 07/05/2021 Do You Have Smoke And Carbon Monoxide Detectors In Your Home? Yes [email or web address] Information not available 07/05/2021 Do You Use Sunscreen Routinely? Yes [email or web address] Information not available 07/05/2021 Has Tobacco Cessation Counseling Been Provided? No [email or web address] Information not available 07/05/2021 Have You Used IV Drugs? No [email or web address] Information not available 07/05/2021 Do You Have Difficulty Walking Or Climbing Stairs? No Information not available 12/06/2021 Sex: Unknown Functional Status Question Answer Note LastModified by Organizat ion Details LastModified Time Do you use any illicit or recreational drugs? Yes [email or web address] Information not available 07/05/2021 Do you or have you ever used any other forms of tobacco or nicotine? Yes [email or web address] Information not available 07/05/2021 What is your level of alcohol consumption? None [email or web address] Information not available 03/31/2025 Do you or have you ever used smokeless tobacco? Never used smokeless tobacco [email or web address] Information not available 07/05/2021 Are you able to walk independently without assistance or assistive devices? YESWOREST [email or web address] Information not available 07/05/2021 Are you able to care for yourself independently? Yes Information not available 12/06/2021 Do you have difficulty dressing, bathing, grooming, or toileting? No [email or web address] Information not available 12/06/2021 Do you or have you ever used e-cigarettes or vape? Current user of electronic cigarettes [email or web address] Information not available 07/05/2021 What is your exercise level? Occasional [email or web address] Information not available 07/05/2021 Mental Status Question Answer Note LastModified by Organization D etails LastModified Time Do you feel stressed (tense, restless, nervous, or anxious, or unable to sleep at night)? [id number] [email or web address] Information not available 07/05/2021 Family History Relationship Description Onset Age of this Age Resolved Age Notes LastModified by Organization Details LastModified Time Father No current problems or disability [email or web address] Not available 05/2021 09:06:31 Mother No current problems or disability [email or web address] Not available 05/2021 09:06:31 Medical History Condition [...] ICD10 Code Diagnosis IMO Codes Diagnosis Note [id number] Shawn Bradley MD [facility] [address],[place] [address] 05/28/2025 13:46:14 05/28/2025 14:40:01 Abnormal placenta affecting management of mother 88833730 O43.192 Z3A.24 92360788 [id number] [facility] [address],[place] [address] 05/28/2025 13:46:33 05/28/2025 15:52:47 Gestation period, 24 weeks 179902470 Z3A.24 9721247 cont pnv [id number] Shawn Bradley MD [facility] [address],[place] [address] 06/23/2025 13:43:13 06/25/2025 17:52:18 [id number] [facility] [address],[place] [address] 06/23/2025 13:43:28 06/23/2025 15:58:03 Heartburn 89850170 R12 87228 Gestation period, 28 weeks 93175461 Z3A.28 3611831 Health Concerns Section Related Observation LastModified by Organization Detai ls LastModified Time None Recorded Concern Status LastModified by Organization Details LastModified Time None Recorded Payers Encounter Date Sequence Insurance Name Policy Number Policy Roberts Covered Member ID Roberts Member ID Guarantor Name 06/23/2025 1 [facility] (MEDICAID HMO) [id number] Yuni Mejia [id number] Yuni Mejia Notes Date Note Type Note Provider Name and Address Organization Details Recorded Time 06/23/2025 text/html Generic HPI TemplateReported by Patient Anju Prescott Naima, [facility] [address], [place], [address], [place] [facility] 06/23/2025 15:46:54 OBGyn Episode Ob Episode Information Episode Created Date Number of Fetuses Patient Bloodtype Patient rh Status Prepregnancy Weight lbs Domestic Partner Domestic Partner Phone Father Name Claims Specialist Status 03/02/20 25 1 B Positive 164 CLOSED Fetus Data First Name Last Name Admitted to NICU Weight (g) Sex Living Outcome Pediatric Complications Fetus ID Race Codes Race Delivery Type Gladis false 4025.62 9 F true Full Term 48370 Vaginal Delivery Problems Problem Notes SDH form completed 5GI consult Tachycardia Holter monitor 72 order- pt sent back on 03-27-25 Cardiology referral faxed per Dr Martínez office calling pt 04/21 to schedule consult scheduled 05/11 11:15AM Problem Name Start Date End Date Resolution Snomed Code Not e Uncomplicated moderate persistent asthma 03/02/2025 289720894 albuterol prn Abnormal placenta affecting management of mother 05/04/2025 80375732 [facility] serial grow th Iron deficiency anemia 05/25/2025 28789854 [facility] tx [place] 200mg x1 HGB 10.6 Nausea and vomiting 03/02/2025 86470411 Anxiety 03/02/2025 50163019 sertralin e started 03/02/25 changed to prozac 10 on Gestational diabetes mellitus 07/08/2025 50589306 checking bs QID - ruled in GDM Referral faxed to [facility] 07/07 Frequent headache 05/03/2025 [id number] [place] to [facility] 05/21, discharge 05/23 [facility] referral faxed 05/24 SS Neurology consult pending per KAJAL Pittman [facility]- Neuro SS unable to see pt due to insurance 05/[facility] 07/05/25 Level US & Consult (see [facility] consult zayas recommendations ) regimen prn Imitrex 50mg for acute migraine, vitamin B2 (Riboflavin) 400mg, Coenzyme q10 300mg and magnesium oxide 200 to 600mg daily. minimize use of Excedrin or Tylenol to no more than 2-3 times a week. 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/2025 3181966 32wk growth us Jun Calculation Initial Jun [...] Weight in lbs Pre/Post Dialysis Refused Weight 158.820329280660 BP Diastolic BP Location Tested BP Systolic [...] Weight in lbs Pre/Post Dialysis Refused Weight 158.133848202836 BP Diastolic BP Location Tested BP Systolic [...] Weight in lbs Pre/Post Dialysis Refused Weight 162.950122508887 BP Diastolic BP Location Tested BP Systolic BP Type 78 123 Fetus Heart Rate Present A 148 Fetus Movement A Yes Comments Patient is having having ronny n, cramping and vaginal discharge. went to ed exam done cultures and rx sent, ?FM, await quality assurance monitor final results rfilled zofran, precautions and education f/u [...] Type Weight in lbs Pre/Post Dialysis Refused 168.785728572397 BP Diastolic BP Location Tested BP Systolic [...] Type Weight in lbs Pre/Post Dialysis Refused 169.539431039174 BP Diastolic BP Location Tested BP Systolic [...] Weight in lbs Pre/Post Dialysis Refused Weight 175.389499339570 BP Diastolic BP Location Tested BP Systolic [...] Weight in lbs Pre/Post Dialysis Refused Weight 182.765055144256 BP Diastolic BP Location Tested BP Systolic [...] Weight in lbs Pre/Post Dialysis Refused Weight 181.694373094267 BP Diastolic BP Location Tested BP Systolic BP Type 73 L arm 131 sitting Fetus Heart Rate Present Fetus Movement A Yes Comments viral URI testied neg at urg ent care, nausea resolved, efw 68%, +FM plan education and precautions f/u 2 weeks diagnosed GDM, plan bridge inspector, gave list reviewed protein vs carb Flowsheet Date 07/21/2025 Gibson Score Blood Edema Fundus Height Fundus Units Glucose Ketones Leukocytes Nitrite Labor Signs Protein Cervic Dilation Cervic Effacement Cervic Station Type Weight in lbs Pre/Post Dialysis Refused Weight 181.271257486102 BP Diastolic BP Location Tested BP Systolic BP Type 78 L arm 127 sitting Fetus Heart Rate Present A 150 Fetus Movement A Yes Comments rpt urine culture +FM review ed blood sugars, meets with bridge inspector today, precautions and education f/u 2 weeks [...] Weight in lbs Pre/Post Dialysis Refused Weight 181.180744895081 BP Diastolic BP Location Tested BP Systolic [...] Weight in lbs Pre/Post Dialysis Refused Weight 183.226857475291 BP Diastolic BP Location Tested BP Systolic [...] Type Weight in lbs Pre/Post Dialysis Refused 184.461136201216 BP Diastolic BP Location Tested BP Systolic [...] Type Weight in lbs Pre/Post Dialysis Refused 184.022222838958 BP Diastolic BP Location Tested BP Systolic [...] Type Weight in lbs Pre/Post Dialysis Refused 184.983377744242 BP Diastolic BP Location Tested BP Systolic [...] Weight in lbs Pre/Post Dialysis Refused Weight 184.055890849207 BP Diastolic BP Location Tested BP Systolic [...] Weight in lbs Pre/Post Dialysis Refused Weight 164.571610981192 BP Diastolic BP Location Tested BP Systolic [...]
--- OUTSIDE RECORDS SUMMARY | 2025-09-16 17:55 | XMS_ITS | Encounter Summary ---
Author Organization [facility] Healthcare Address [address] [place] [address] Care Team Providers Care Scrap Iron Loader Name Role Phone Kera Flanagan NP Primary Care Provider [phone] Tammi Menon APRN Primary Care Provider Encounter Details Date Type Department Care Team (Late st Contact Info) Description 10/25/2023 Orders Only [facility] Home Care Services [address] [place] [address] Carli Whitaker, [facility] Social History Tobacco Use Types Packs/Day Years [...] on file 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 Gender Identity Not on file Sexual Orientation Not on file documented as of this encounter Functional Status * BP Location Answer Date of Assessment Author Left arm 10/25/2023 10:30 AM INTERNET WEBMASTER Niharika Griffin RN * BP Location Answer Date of Assessment Author Left arm 10/25/2023 10:30 AM INTERNET WEBMASTER Niharika Griffin RN documented as of this encounter Plan of Treatment Not on file documented as of this encounter Visit Diagnoses Not on filedocumented in this encounter Additional Health Concerns Infection Onset Date Last Indicated Resolved Time COVID: Suspected 12/31/2024 12/31/2024 12/31/2024 3:10 PM INTERNET WEBMASTER documented as of this encounter Care Teams Scrap Iron Loader Relationship Specialty Start Date End Date Kera Flanagan, [place] PCP - General 05/30/22 12/30/24 Tammi Menon APRN [address] [place] [address] PCP - General Family Medicine 12/31/24 documented as of this encounter
--- OUTSIDE RECORDS SUMMARY | 2025-09-16 17:55 | XMS_ITS | Clinical Summary ---
Author Organization [facility] Address [address] [place] [address] Care Team Providers Care Cheesemaking Laborer Name Role Phone Tammi Menon DOREEN [...] have care with Dr. Ortega Denson in [place], [place]. Assessment & Plan (07/04/2019 7:48 PM CDT): - no plans to initiate care [place] - gave Rx for doxylamine/pyridoxine for nausea - encouraged smoking cessation; recommended she d/w Dr. Addison Denson when she establishes care Abdominal pain in 07/04/2019 Overview (07/04/2019): 07/04/2019: presented to [facility], r/o for acute process. Transfer to [facility] for dating confirmation. 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 Gender Identity Not on file Sexual [...] Comments Blood Pressure 101/69 12/31/2024 5:25 PM MOTOR HOTEL MANAGER Pulse 77 12/31/2024 5:25 PM MOTOR HOTEL MANAGER Temperature 37.1 C (98.7 F) 12/31/2024 2:09 PM MOTOR HOTEL MANAGER Respiratory Rate 18 12/31/2024 5:25 PM MOTOR HOTEL MANAGER Oxygen Saturation 100% 12/31/2024 5:25 PM MOTOR HOTEL MANAGER Inhaled Oxygen Concentration - - Weight 72.7 kg (160 lb 4.4 oz) 12/31/2024 2:09 P M MOTOR HOTEL MANAGER Height 165.1 cm (5' 5) 12/31/2024 2:09 PM MOTOR HOTEL MANAGER Body Mass Index 26.67 12/31/2024 2:09 PM MOTOR HOTEL MANAGER Plan of Treatment Health Maintenance Due Date [...] patient's age to complete this topic Insurance [facility] Care Teams Cheesemaking Laborer Relationship Specialty Start Date End Date Tammi Menon LauraDOREEN [address] Pediatric Emerg. Dept. [place] [id number] PCP - General Family Medicine 12/31/24
--- OUTSIDE RECORDS SUMMARY | 2025-09-16 17:56 | XMS_ITS ---
Author Organization Unknown Address [address] [place] [phone] Phone Care Team Providers Care Legal Internship Name Role Phone ANNABELLE GONZALEZ Attending Unavailable [...] HPV9 01/05/2017 Completed [address] CHEST/LUNG WO CONTRAST - Completed: 09/03/2024 16:41 LOINC: EXAM DESCRIPTION: CT CHEST/LUNG WO CONTRAST REASON FOR STUDY: chest wall and rib pain/ no injury Duration: today TECHNIQUE: CT scan of the chest performed without intravenous contrast using helical scanning technique. Reconstructed coronal and sagittal MPR images reviewed. All images stored on PACS. Automated exposure control was used as a dose optimization technique for this examination. COMPARISON: 06/23/2024 FINDINGS: LUNGS: Clear. Trachea and major airways patent. HEART/MEDIASTINUM/EDER: Heart size normal. No coronary artery calcification. No enlarged lymph node. Thoracic inlet unremarkable. UPPER ABDOMEN: Unremarkable. MUSCULOSKELETAL: Unremarkable. CHEST WALL: Unremarkable. IMPRESSION: No rib fracture or other acute abnormality identified. THIS IS AN ELECTRONICALLY VERIFIED FINAL REPORT 09/03/2024 5:29 PM - Electronically signed by Jarad Root M.D. AR: CHAUNCEY Report ID: [id number] Reading Location: [place] [address] Social History Type Status Start Date End Date Code Code Syst em Smoking History Never smoker (Never Smoked) [id number] SNOMED CT Sex Female Assessment You had [...] 6002 SNOMED-CT UNSPECIFIED ABDOMINAL PAIN active 215 57507 SNOMED-CT Allergies and Adverse Reactions Allergy Substance Reaction Severity Start Date Concern Status Co de Code System AMOXICILLIN Active 723 RxNorm TERBUTALINE Active 66281 RxNorm Plan of Treatment Stress Test Treadmill 01/21/2025 Gynaecological Oncologist Consult 04/27/2025 Encounters Encounter Diagnosis Start Date Code Code Sys tem Strain of muscle and tendon of unspecified wall of thorax, initial encounter 09/03/2024 SNOMED-CT Personal Care Team Section Performer Name [...]
--- OUTSIDE RECORDS SUMMARY | 2025-09-16 17:56 | XMS_ITS | Continuity of Care Document ---
Author Organization [facility] Address [address] [place] [address] Care Team Providers Care Rn Med Surg Name Role Phone VIVIAN ESTRADAISSA Primary Care Provider Assessment No assessment recorded. Plan of Treatment Reminders Order Date Submit Date Provider Last Modified By Organization Details Last Modified Time Details Appointments None recorded. Lab None recorded. Referral None recorded. Procedures None recorded. Surgeries None recorded. Imaging None recorded. Medication Orders sertraline [address] [facility] [address] [place], [address], 13:06:11 lamotrigine [address] [facility] [address] [place], [address], 13:06:10 Patient TargetsNo targets recorded. Patient InstructionsNo instructions recorded. Reason for Referral None Reported. Results Created Date Observation Date Name Description Value Unit Range Abnormal Flag Note LastModifiedBy Organization Detail LastModifiedTime 03/06/2003/06/2025 [UNIT Y] ANEUP LOIDY NIPT fraction 5.7% normal Not Available [facility] [address], [place], [address], 03/06/2025 03:58:26 03/06/20 25 03/06/2025 [UNIT Y] ANEUP LOIDY NIPT sex chromosome aneuploidy NOT DETECT ED normal Not Available [facility] e [address], [place], [address], 03/06/2025 03:58:26 03/06/20 25 03/06/2025 [UNIT Y] ANEUP LOIDY NIPT monosomy X LOW RISK <1 in 10,000 normal Not Available [facility] [address], [place], [address], 03/06/2025 03:58:26 03/06/20 25 03/06/2025 [UNIT Y] ANEUP LOIDY NIPT trisomy 13 LOW RISK <1 in 10,000 normal Not Available [facility] [address], [place], [address], 03/06/2025 03:58:26 03/06/20 25 03/06/2025 [UNIT Y] ANEUP LOIDY NIPT trisomy 18 LOW RISK <1 in 10,000 normal Not Available [facility] [address], [place], [address], 03/06/2025 03:58:26 03/06/20 25 03/06/2025 [UNIT Y] ANEUP LOIDY NIPT trisomy 21 LOW RISK <1 in 10,000 normal Not Available [facility] [address], [place], [address], 03/06/2025 03:58:26 03/06/20 25 03/06/2025 [UNIT Y] ANEUP LOIDY NIPT sex FEMALE normal Not Available [facility] [address], [place], [address], 03/06/2025 03:58:26 03/06/20 25 03/06/2025 [UNIT Y] ANEUP LOIDY NIPT gestation SINGLE TON normal Not Available [facility] [address], [place], [address], 03/06/2025 03:58:26 05/08/16 2503/06/2025 [UNIT Y] ANEUP KIANA NIPT for detailed report, see pdf See PDF normal Not Available [facility] [address], [place], [address], 03/06/2025 03:58:26 03/02/2003/02/2025 CULTU RE: URINE result report SEE RESULT S BELOW Test: Cultu re: Urine Speci men Sourc e: Urine - Clean Catch Speci men Type: Urine Speci men Date: 1455 Resul t Date: 2138 Resul t Statu s: Final resul t Abnor mal: No Resul ting Lab: [facility] [address] [facility] [address] Tel: CULTU RE ----- ----- ----- --- No growt h in 1 day (dete ction level of 10,00 0 colon ies / ml.) Not Available [facility] (Lab) [address] [place], [address], 03/03/2025 22:42:27 03/12/2003/12/2025 CULTU RE: URINE result report SEE RESULT S BELOW Test: Cultu re: Urine Speci men Sourc e: Urine - Clean Catch Speci men Type: Urine Speci men Date: 2024 1600 Resul t Date: 2024 0610 Resul t Statu s: Final resul t Abnor mal: No Resul ting Lab: [facility] [address] [facility] [address] Tel: CULTU RE ----- ----- ----- --- No growt h in 1 day (dete ction level of 10,00 0 colon ies / ml.) Not Available [facility] (Lab) [address] [place], [address], 03/14/2025 07:15:03 03/12/2003/12/2025 urina lysis , dipst ick Leukocytes ++ Not Available [facility] [address], [place], [address], 03/12/2025 16:45:06 03/12/20 25 03/12/2025 urina lysis , dipst ick Protein + Not Available [facility] [address], [place], [address], 03/12/2025 16:45:06 03/12/20 25 03/12/2025 urina lysis , dipst ick pH 5 Not Available [facility] [address], [place], [address], 03/12/2025 16:45:06 03/12/20 25 03/12/2025 urina lysis , dipst ick Blood trace Not Available [facility] [address], [place], [address], 03/12/2025 16:45:06 03/12/20 25 03/12/2025 urina lysis , dipst ick Specific [place] 1.015 Not Available [facility] [address], [place], [address], 03/12/2025 16:45:06 03/12/20 25 03/12/2025 urina lysis , dipst ick Ketone +++ Not Available [facility] [address], [place], [address], 03/12/2025 16:45:06 03/31/20 25 03/31/2025 TSH, REFLE X FREE T4 TSH 0.42 uIU/m L 0.30-5 .33 Not Available [facility] (Lab) [address], [place], [address], 04/01/2025 03:05:12 03/31/20 25 03/31/2025 CULTU RE: URINE result report SEE RESULT S BELOW Test: Cultu re: Urine Speci men Sourc e: Urine Voide d Speci men Type: Urine Speci men Date: 1710 Resul t Date: 2256 Resul t Statu s: Final resul t Abnor mal: No Resul ting Lab: [facility] [address] [facility] [address] Tel: CULTU RE ----- ----- ----- --- Cultu re resul t (>=3 organ isms prese nt) indic ates possi ble conta minat ion. Repea t cultu re if sympt oms indic ate. Not Available [facility] (Lab) [address], [place], [address], 04/01/2025 23:59:19 03/31/20 25 03/31/2025 urina lysis , dipst ick Leukocytes +1 Not Available [facility] [address], [place], [address], 03/31/2025 09:23:13 03/31/20 25 03/31/2025 urina lysis , dipst ick Nitrite normal Not Available [facility] [address], [place], [address], 03/31/2025 09:23:13 03/31/20 25 03/31/2025 urina lysis , dipst ick Urobilinogen normal Not Available [facility] [address], [place], [address], 03/31/2025 09:23:13 03/31/20 25 03/31/2025 urina lysis , dipst ick Protein trace Not Available [facility] [address], [place], [address], 03/31/2025 09:23:13 03/31/20 25 03/31/2025 urina lysis , dipst ick pH 5 Not Available [facility] [address], [place], [address], 03/31/2025 09:23:13 03/31/20 25 03/31/2025 urina lysis , dipst ick Specific [place] 1.020 Not Available [facility] nita [address], [place], [address], 03/31/2025 09:23:13 03/31/20 25 03/31/2025 urina lysis , dipst ick Ketone normal Not Available [facility] [address], [place], [address], 03/31/2025 09:23:13 03/31/20 25 03/31/2025 urina lysis , dipst ick Bilirubin normal Not Available [facility] [address], [place], [address], 03/31/2025 09:23:13 03/31/20 25 03/31/2025 urina lysis , dipst ick Glucose normal Not Available [facility] [address], [place], [address], 03/31/2025 09:23:13 03/31/20 25 03/31/2025 urina lysis , dipst ick Appearance normal Not Available [facility] [address], [place], [address], 03/31/2025 09:23:13 03/31/20 25 03/31/2025 urina lysis , dipst ick Color normal Not Available [facility] [address], [place], [address], 03/31/2025 09:23:13 04/01/20 25 04/01/2025 WOMEN 'S HEALT H SWAB PLUS, DENIS bacterial vaginosis (bv), tma Negati ve negati ve Not Available [facility] (Lab) [address], [place], [address], 04/02/2025 14:08:45 04/01/20 25 04/01/2025 [facility], DENIS mekhi species, tma Negati ve negati ve Not Available [facility] (Lab) [address] [place], [address], 04/02/2025 14:08:45 04/01/20 25 04/01/2025 [facility], DENIS mekhi glabrata, tma Negati ve negati ve Not Available [facility] (Lab) [address] [place], [address], 04/02/2025 14:08:45 04/01/20 25 04/01/2025 [facility], DENIS trichomonas vaginalis, tma Negati ve negati ve Not Available [facility] (Lab) [address] [place], [address], 04/02/2025 14:08:45 04/01/20 25 04/01/2025 [facility], DENIS chlamydia trachomatis, PCR Negati ve negati ve Not Available [facility] (Lab) [address] [place], [address], 04/02/2025 14:08:45 04/01/20 25 04/01/2025 [facility], DENIS neisseria [...] ded in this panel . Not Available [facility] (Lab) [address] [place], [address], 04/02/2025 14:08:45 04/22/2004/22/2025 CULTU RE: URINE result report SEE RESULT S BELOW Test: Cultu re: Urine Speci men Sourc e: Urine Voide d Speci men Type: Urine Speci men Date: 2024 1314 Resul t Date: 2024 0322 Resul t Statu s: Final resul t Abnor mal: No Resul ting Lab: [facility] [address] [facility] [address] Tel: CULTU RE ----- ----- ----- --- No growt h in 1 day (dete ction level of 10,00 0 colon ies / ml.) Not Available [facility] (Lab) [address], [place], [address], 04/24/2025 04:28:01 04/22/20 25 04/22/2025 urina lysis , dipst ick Leukocytes + Not Available [address], [place], [address], 04/22/2025 10:01:51 04/22/20 25 04/22/2025 urina lysis , dipst ick Protein + Not Available [facility] [address], [place], [address], 04/22/2025 10:01:51 04/22/20 25 04/22/2025 urina lysis , dipst ick pH 8 Not Available [facility] [address], [place], [address], 04/22/2025 10:01:51 04/22/20 25 04/22/2025 urina lysis , dipst ick Blood + Not Available [facility] [address], [place], [address], 04/22/2025 10:01:51 04/22/20 25 04/22/2025 urina lysis , dipst ick Specific [place] 1.010 Not Available [facility] [address], [place], [address], 04/22/2025 10:01:51 04/22/20 25 04/22/2025 urina lysis , dipst ick Ketone + Not Available [facility] [address], [place], [address], 04/22/2025 10:01:51 06/23/20 25 06/23/2025 HEMAT OCRIT (HCT) HCT 35.6 % (based on docume nted legal sex) 34.0-4 5.0 Not Available [facility] (Lab) [address] [facility], [place], [address], 06/24/2025 11:45:32 06/23/20 25 06/23/2025 HEMOG LOBIN (HGB) HGB 11.1 g/dL (based on docume nted legal sex) 11.6-1 5.4 low Not Available [facility] (Lab) [address] [facility], [place], [address], 06/24/2025 11:45:32 06/23/20 25 06/23/2025 GTT - GESTA ROLAND Hugo Sanchez, ACOG OB glucose, 1 hour screen 180 mg/dL 70-135 high Not Available [facility] (Lab) [address] [facility], [place], [address], 06/24/2025 11:45:33 06/23/20 25 06/23/2025 HIV 1/2 ANTIG EN/AN TIBOD Y, REFLE X CONFI RMATI ON HIV antigen/anti body Nonrea ctive nonrea ctive HIV-1 antig en and HIV-1 /HIV- 2 antib odies were not detec greg. No labor atory evide nce of HIV infec tion. Not Available [facility] (Lab) [address] [facility], [place], [address], 06/24/2025 11:45:33 06/23/20 25 06/23/2025 RPR SCREE N, REFLE X TITER /CONF IRMAT ION RPR qualitative Nonrea ctive nonrea ctive Not Available [facility] (Lab) [address] [facility], [place], [address], 06/24/2025 11:45:34 07/21/2007/21/2025 CULTU RE: URINE result report SEE RESULT S BELOW Test: Cultu re: Urine Speci men Sourc e: Urine - Clean Catch Speci men Type: Urine Speci men Date: 2024 1024 Resul t Date: 2024 0252 Resul t Statu s: Final resul t Abnor mal: No Resul ting Lab: [facility] [address] [facility] [address] Tel: CULTU RE ----- ----- ----- --- No growt h in 1 day (dete ction level of 10,00 0 colon ies / ml.) Not Available [facility] (Lab) [address], [place], [address], 07/23/2025 03:57:01 07/21/2007/21/2025 urina lysis , dipst ick Leukocytes ++ Not Available [address], [place], [address], 07/21/2025 11:03:04 07/21/20 25 07/21/2025 urina lysis , dipst ick Nitrite neg Not Available [facility] [address] [place], [address], 07/21/2025 11:03:04 07/21/20 25 07/21/2025 urina lysis , dipst ick Urobilinogen neg Not Available [facility] [address], [place], [address], 07/21/2025 11:03:04 07/21/20 25 07/21/2025 urina lysis , dipst ick Protein + Not Available [facility] [address], [place], [address], 07/21/2025 11:03:04 07/21/20 25 07/21/2025 urina lysis , dipst ick pH 5 Not Available [facility] [address], [place], [address], 07/21/2025 11:03:04 07/21/20 25 07/21/2025 urina lysis , dipst ick Specific [place] 1.030 Not Available [facility] nita [address], [place], [address], 07/21/2025 11:03:04 07/21/20 25 07/21/2025 urina lysis , dipst ick Ketone +++ Not Available [facility] [address], [place], [address], 07/21/2025 11:03:04 07/21/20 25 07/21/2025 urina lysis , dipst ick Bilirubin neg Not Available [facility] [address], [place], [address], 07/21/2025 11:03:04 07/21/20 25 07/21/2025 urina lysis , dipst ick Glucose neg Not Available [facility] [address], [place], [address], 07/21/2025 11:03:04 07/21/20 25 07/21/2025 urina lysis , dipst ick Appearance cloudy Not Available [facility] [address], [place], [address], 07/21/2025 11:03:04 07/21/20 25 07/21/2025 urina lysis , dipst ick Color dark Not Available [facility] [address], [place], [address], 07/21/2025 11:03:04 08/04/20 25 08/04/2025 CMP(C OMPRE HENSI VE METAB OLIC PANEL ) sodium 138 mmol/ L 133-14 6 Not Available [facility] (Lab) [address] [facility], [place], [address], 08/05/2025 13:39:18 08/04/20 25 08/04/2025 CMP(C OMPRE HENSI VE METAB OLIC PANEL ) potassium 4.0 mmol/ L 3.5-5. 1 Not Available [facility] (Lab) [address], [place], [address], 08/05/2025 13:39:18 08/04/20 25 08/04/2025 CMP(C OMPRE HENSI VE METAB OLIC PANEL ) chloride 105 mmol/ L 98-107 Not Available [facility] (Lab) [address], [place], [address], 08/05/2025 13:39:18 08/04/20 25 08/04/2025 CMP(C OMPRE HENSI VE METAB OLIC PANEL ) carbon dioxide 25 mmol/ L 21-31 Not Available [facility] (Lab) [address] [place], [address], 08/05/2025 13:39:18 08/04/20 25 08/04/2025 CMP(C OMPRE HENSI VE METAB OLIC PANEL ) anion gap 8 mmol/ L 4-13 Not Available [facility] (Lab) [address], [place], [address], 08/05/2025 13:39:18 08/04/20 25 08/04/2025 CMP(C OMPRE HENSI VE METAB OLIC PANEL ) blood urea nitrogen 10 mg/dL 7-25 Not Available [facility] (Lab) [address] [address], [place], [address], 08/05/2025 13:39:18 08/04/20 25 08/04/2025 CMP(C OMPRE HENSI VE METAB OLIC PANEL ) creatinine 0.41 mg/dL 0.60-1 .30 low Not Available [facility] (Lab) [address] [address], [place], [address], 08/05/2025 13:39:18 08/04/20 25 08/04/2025 CMP(C OMPRE HENSI VE METAB OLIC PANEL ) egfrcr (CKD-epi 2020) >90 mL/mi n/1.7 3_m2 >=60 Not Available [facility] (Lab) [address] [address], [place], [address], 08/05/2025 13:39:18 08/04/20 25 08/04/2025 CMP(C OMPRE HENSI VE METAB OLIC PANEL ) calcium 8.9 mg/dL 8.3-10 .5 Not Available [facility] (Lab) [address] [address], [place], [address], 08/05/2025 13:39:18 08/04/20 25 08/04/2025 CMP(C OMPRE HENSI VE METAB OLIC PANEL ) glucose 116 mg/dL 70-100 high Not Available [facility] (Lab) [address] [address], [place], [address], 08/05/2025 13:39:18 08/04/20 25 08/04/2025 CMP(C OMPRE HENSI VE METAB OLIC PANEL ) protein, total 6.1 g/dL 6.4-8. 3 low Not Available [facility] (Lab) [address] [address], [place], [address], 08/05/2025 13:39:18 08/04/20 25 08/04/2025 CMP(C OMPRE HENSI VE METAB OLIC PANEL ) albumin 3.5 g/dL 3.5-5. 0 Not Available [facility] (Lab) [address] [address], [place], [address], 08/05/2025 13:39:18 08/04/20 25 08/04/2025 CMP(C OMPRE HENSI VE METAB OLIC PANEL ) ALT 11 units /L 9-43 Not Available [facility] (Lab) [address] [address], [place], [address], 08/05/2025 13:39:18 08/04/20 25 08/04/2025 CMP(C OMPRE HENSI VE METAB OLIC PANEL ) alkaline phosphatase 98 units /L 34-104 Not Available [facility] (Lab) [address] [address], [place], [address], 08/05/2025 13:39:18 08/04/20 25 08/04/2025 CMP(C OMPRE HENSI VE METAB OLIC PANEL ) AST 15 units /L 13-39 Not Available [facility] (Lab) [address], [place], [address], 08/05/2025 13:39:18 08/04/20 25 08/04/2025 CMP(C OMPRE HENSI VE METAB OLIC PANEL ) bilirubin, total 0.3 mg/dL 0.2-1. 2 Not Available [facility] (Lab) [address] [place], [address], 08/05/2025 13:39:18 08/04/20 25 08/04/2025 BILE ACIDS , TOTAL bile acids, total 4 umol/ L 0-10 Test Perfo rmed by: [facility]rero [facility] [address] [address] Not Available [facility] (Lab) [address] [place], [address], 08/05/2025 13:39:19 03/02/20 25 03/02/2025 US, obste tric, nucha l trans lucen cy No observ ation record ed. [email or web address] [facility] [address], [place], [address], 03/02/2025 13:35:30 03/02/20 25 03/02/2025 US, obste tric, nucha l trans lucen cy No observ ation record ed. [email or web address] [address] [address], [place], [address], 03/03/2025 14:08:39 03/08/20 25 03/08/2025 US, obste tric, 1st trime ster No observ ation record ed. [email or web address] [facility] [address], [place], [address], 03/08/2025 12:22:22 03/08/20 25 03/08/2025 US, obste tric, 1st trime ster No observ ation record ed. [email or web address] [address], [place], [address], 03/10/2025 15:03:13 04/01/20 25 03/24/2025 [email or web address] r monit or No observ ation record ed. [address], [address], 04/08/2025 12:36:45 04/01/20 25 03/22/2025 [email or web address] r monit or No observ ation record ed. [address] (Pulmonary) [address] [place] [address], [address], 04/06/2025 08:59:34 04/20/20 25 04/20/2025 US, obste tric, limit ed No observ ation record ed. [email or web address] [facility] [address], [place], [address], 04/20/2025 17:39:30 04/20/20 25 04/20/2025 US, obste tric, follo w-up No observ ation record ed. [email or web address] [address] [address], [place], [address], 04/23/2025 08:32:54 04/28/20 25 04/28/2025 US, obste tric, 2nd or 3rd trime ster No observ ation record ed. [email or web address] [facility] [address], [place], [address], 04/28/2025 17:48:42 04/28/20 25 04/28/2025 US, obste tric, 2nd or 3rd trime ster No observ ation record ed. [email or web address] [facility] [address], [place], [address], 05/04/2025 22:16:11 05/07/20 25 05/07/2025 non-s tress test No observ ation record ed. [address], [place], [address], 05/28/2025 13:33:54 05/21/20 25 05/21/2025 CT, head + brain , w/o contr ast No observ ation record ed. [email or web address], [place], [address], 05/24/2025 13:48:57 05/28/20 25 05/28/2025 US, obste tric, follo w-up No observ ation record ed. [email or web address] [facility] [address], [place], [address], 05/28/2025 17:32:34 05/28/20 25 05/28/2025 US, obste tric, follo w-up No observ ation record ed. [email or web address] [address] [address], [place], [address], 06/01/2025 15:13:13 06/08/20 25 06/07/2025 US, obste tric, follo w-up No observ ation record ed. [email or web address] [facility] [address] [address], [place], [address], 06/15/2025 10:53:46 07/07/2007/07/2025 US, obste tric, follo w-up No observ ation record ed. [email or web address] [facility] [address], [place], [address], 07/07/2025 13:18:01 07/07/20 25 07/07/2025 US, obste tric, follo w-up No observ ation record ed. [email or web address] [address], [place], [address], 07/07/2025 11:29:37 08/04/2008/04/2025 US, obste tric, follo w-up No observ ation record ed. [email or web address] [facility] [address], [place], [address], 08/04/2025 15:08:50 08/04/20 25 08/04/2025 US, obste tric, follo w-up No observ ation record ed. [email or web address] [address] [address], [place], [address], 08/06/2025 10:41:50 08/11/2008/11/2025 non-s tress test No observ ation record ed. [email or web address] [facility] [address], [place], [address], 08/11/2025 17:37:52 08/11/20 non-s tress test No observ ation record ed. [facility] [address], [place], [address], 08/11/2025 17:38:11 08/15/2008/15/2025 non-s tress test No observ ation record ed. [address], [place], [address], 08/21/2025 10:18:57 08/15/2008/15/2025 US, obste tric, bioph ysica l profi le No observ ation record ed. [place] [id number] [facility] [address], [place], [address], 08/17/2025 10:50:53 08/18/2008/18/2025 US, obste tric, bioph ysica l profi le + non-s tress test No observ ation record ed. [email or web address] [facility] [address], [place], [address], 08/18/2025 10:21:39 08/18/2008/18/2025 US, obste tric, bioph ysica l profi le + non-s tress test No observ ation record ed. [email or web address] [address] [address], [place], [address], 08/18/2025 10:35:44 08/18/2008/18/2025 non-s tress test No observ ation record ed. [email or web address] [facility] [address], [place], [address], 08/18/2025 17:34:03 08/18/20 non-s tress test No observ ation record ed. [email or web address] [facility] [address], [place], [address], 08/18/2025 16:06:09 08/25/2021 0808/25/2025 US, obste tric, bioph ysica l profi le + non-s tress test No observ ation record ed. [email or web address] [facility] [address], [place], [address], 08/25/2025 18:52:06 08/25/20 25 08/25/2025 US, obste tric, follo w-up No observ ation record ed. [email or web address] [address] [address], [place], [address], 08/25/2025 15:47:28 08/25/2008/25/2025 non-s tress test No observ ation record ed. [address], [place], [address], 08/25/2025 18:12:15 08/25/20 non-s tress test No observ ation record ed. [facility] [address], [place], [address], 08/25/2025 17:21:19 08/30/20 25 08/30/2025 non-s tress test No observ ation record ed. [place] [id number] [facility] [address] [facility], [place], [address], 09/15/2025 15:26:49 09/01/20 25 09/01/2025 non-s tress test No observ ation record ed. [email or web address] [facility] [address] [facility] [address], [place], [address], 09/13/2025 11:32:22 09/01/20 25 09/01/2025 US, obste tric No observ ation record ed. [email or web address] [place] [address] [address] [facility] [address], [place], [address], 09/02/2025 15:56:01 09/01/20 25 09/01/2025 non-s tress test No observ ation record ed. [email or web address] [place] [address] [address], [place], [address], 09/02/2025 14:32:38 09/16/20 25 09/16/2025 imagi ng/di agnos tic resul t No observ ation record ed. [facility] [address] [facility] [address], [place], [address], 09/16/2025 18:07:05 Result Notes None recorded. Problems Name Problem SNOMED Code Status Onset Date Resolution Date Notes Provider Name and Address Organization Details Recorded Time Hypereme sis 078135570 Completed phenerga n now prn [facility] r[facility] 2 16:43:51 Anxiety in pregnanc y [id number] [id number] Completed will continue to monitor [facility] 2 16:43:51 Past pregnanc y history of gestatio nal diabetes mellitus [id number] Completed Early 1 hr GTT @ 20wks 11/03 APPT [facility] 2 16:43:51 Spinal muscular atrophy 2422637 Completed Carrier - Not in contact with FOB. [facility] ramos [facility] 2 16:43:51 Anxiety 45307165 Completed prozac Karina ramos [facility] 4 11:00:46 Nausea [id number] Completed d/c zofran pump 11/08 per pt request Karina ramos [facility] 4 11:00:46 Postpart um hemorrha ge [id number] Completed 2017 with d&c Karina ramos [facility] 4 11:00:46 Normal pregnanc y in multigra jessy [id number] 04071 Completed 201907/05/2021 Encounte r for supervis ion of other normal pregnanc y, 3rd trimeste r;Record ed Elsewher e: No Locat ion: Griceldaeda castillo [facility] S ource: EHR [employer] yvrose: N Natalyati ce ID: 0001 Gigi lable Time: 10:45:00 AM Karina ramos, [facility] 10:15:27 Gestatio n period, 37 weeks [id number] Completed 201907/05/2021 37 weeks gestatio n of pregnanc y;Record ed Elsewher e: No [facility] EHR [employer] yvrose: N Natalyati ce ID: 0001 Iggi lable Time: 09:00:00 AM Karina ramos [facility] 10:15:[address] Concept Completed 201907/05/2021 Matern care for abnlt fetl hrt rate or rhym, 3rd tri, unsp;Rec orded Elsewher e: No [facility] [employer] yvrose: N Natalyati ce ID: 0001 Gigi lable Time: 08:45:00 AM Karina ramos [facility] 10:15:29 Gestatio nal diabetes mellitus 85026057 Completed 201907/05/2021 Gestatio nal diabetes mellitus in pregnanc y, diet controll ed;Recor ded Elsewher e: No Locat ion: Griceldajennijeff castillo [facility] S ource: EHR [employer] yvrose: N Natalyati ce ID: 0001 Gigi lable Time: 11:45:00 AM Karina ramos [facility] 10:15:25 Gestatio n period, 38 weeks 08224203 Completed 201907/05/2021 38 weeks gestatio n of pregnanc y;Record ed Elsewher e: No Locat ion: [facility] S ource: EHR [employer] yvrose: N Practi ce ID: 0001 Gigi lable Time: 11:30:00 AM Karina Burroughs null, [facility] 10:15:13 Amenorrh ea 71579229 Completed 202007/10/2021 Tammijolanta Jones null, [facility] 13:08:35 Pregnanc y 53149081 Completed 202003/29/2022 Emma Elkinsfredi null, [facility] 12:28:48 Pregnanc y 23698590 Completed 202304/22/2024 Emma Donis null, [facility] 12:28:48 Headache 34674204 Active 2023 Karina Burroughs null, [facility] 16:19:28 Pregnanc y 32078661 Completed 202309/14/2025 Emma Handfredi null, [facility] 12:28:48 Uncompli cated moderate persiste nt asthma 863673800 Completed 2024 albutero l prn Shawn Bradley MD [address], [place], [address], [facility] 13:08:36 Anxiety 42934234 Completed 2024 sertrali ne started 03/02/25 changed to prozac 10 on Shawn Bradley MD [address], [place], [address], [facility] 17:05:48 Nausea and vomiting 09937447 Completed 2024 Shawn Bradley MD [address], [place], [address], [place] [facility] 5 13:20:27 Placenta circumva llata 8136823 Completed 2024 32wk [facility] 09:44:35 Frequent headache 868172021 Completed 2024 transpor t to [facility] 05/21, discharg e 05/23 [facility] referral faxed 05/24 [facility] pending per KAJAL Pittman [facility] unable to see [...] more than 2-3 times a week. [facility] 10:55:26 Abnormal placenta affectin g manageme nt of mother 59736381 Completed 2024 [facility]CI serial [facility] 10:46:25 Iron deficien cy anemia 96225859 Completed 2024 SS MFM tx venofer 200mg x1 HGB 10.6 [facility] 15:21:25 Gestatio nal diabetes mellitus 79929576 Completed 2024 checking bs QID - ruled in GDM [facility]erral [facility] 07[facility] 14:36:52 Notes:Order faxed to [facility] r access 08/10 for PICC line, and home health already caring for pt. Vladimir RDZ at [phone] Problem Notes None recorded. Procedures Surgical History Date Name Laterality Status Provider Name and Address Organization Details Recorded Time 025 SALPINGECTOMY, LAPAROSCOPIC (SURG) completed Not Available [facility] 11:19:17 025 Date of Last Pap Smear completed Karina Burroughs [facility] 01/28/2025 11:19:42 024 Nexplanon Removal completed Shawn Bradley MD [address], [place], [address], [facility] 08/05/2024 15:09:58 024 Control Implant Insertion completed Anju Mcnamara CNM [address], [place], [address], [facility] 05/08/2024 17:59:34 024 cholecystectomy completed Karina Burroughs [facility] 03/31/2025 09:18:57 018 Dilation and Curettage completed Karina Burroughs [facility] 07/05/2021 10:17:50 Imaging Results None recorded. Procedure Notes None recorded. Medical Equipment None Reported. Allergies Allergen ID Allergen Name Allergen Category Reaction Reaction Severity Criticality Documentation Date Start Date Code Code System Note Provider Name and Address Organization Details Recorded Time 61174 terbutali ne medicatio n anaphylax is Not available Not available 01/27/20252021 08876 RxNorm [facility] 16:19:27 47688 amoxicill in medicatio n Not available Not available Not available 09/10/2025 723 RxNorm Not Available gene - External Data Service - prod 16:39:37 22546 terbinafi ne medicatio n anaphylax is Not available [facility] 09/10/20252024 67936 RxNorm Not Available gene [employer] - prod 16:40:54 Medications Name [...] 1 tablet every day by oral route. 11/18/ 2025 active Not Available Not Available Not [...] Prescrib ed Elsewher e: Yes Loca tion: [facility] odify By: prabhjot Lee r [...] n (supplie d by office) insert lot [id number] Exp 01/2026 Not Available Not Available Not Available 28 mg iron-800 mcg tablet 07/05 completed Prescrib ed Elsewher e: Yes [facility] By: prabhjot Lee r DateTime : 01/14/20 10:45:00 AM Not Available Not Available Not Available lidocaine 5 % topical ointment APPLY OINTMENT EXTERNAL LY TO RIBS THREE TIMES DAILY NEEDED 01/14 completed Not Available Not Available Not Available BILL CLERK-PNV-DH A 28 mg iron-1 mg-200 mg capsule [...] index (BMI) Body weight Systolic And Diastolic Systolic And Diastolic Provider Name and Address Organization Details Last Updated DateTime 09/14/2025 162.56 cm 28.2 kg/m2 87005.15 g 153/91 mm[Hg] 142/79 mm[Hg] Emma Dykes [facility] 12:29:23 Social History Question Answer Notes LastModified by Organizat ion Details LastModified Time Tobacco Smoking Status Former Smoker Karina ramos, [facility] 07/05/2021 09:06:21 If You Are , What Was Your Level Of Alcohol Consumption Prior To ? Occasional [email or web address] Information not available 03/31/2025 Are You Blind Or Do You Have Difficulty Seeing? No [email or web address] Information not available 07/05/2021 What Is Your Level Of Caffeine Consumption? Heavy Information not available 07/05/2021 In The 14 Days Before Symptom Onset, Have You Had Close Contact With A Laboratory-[facility] COVID-19 While That Case Was [...] Or Recreational Drugs Have You Used? Marijuana [email or web address] Information not available 07/05/2021 Have You Ever Been Counseled For Unhealthy Alcohol Use? No [email or web address] Information not available 07/05/2021 Do You Use Your Seat Belt Or Car Seat Routinely? Yes [email or web address] Information not available 07/05/2021 Do You Have Smoke And Carbon Monoxide Detectors In Your Home? Yes [email or web address] Information not available 07/05/2021 Do You Use Sunscreen Routinely? Yes [email or web address] Information not available 07/05/2021 Has Tobacco Cessation Counseling Been Provided? No [email or web address] Information not available 07/05/2021 Have You Used IV Drugs? No [email or web address] Information not available 07/05/2021 Do You Have Difficulty Walking Or Climbing Stairs? No [email or web address] Information not available 12/06/2021 Sex: Unknown Functional Status Question Answer Note LastModified by Organizat ion Details LastModified Time Do you use any illicit or recreational drugs? Yes [email or web address] Information not available 07/05/2021 Do you or have you ever used any other forms of tobacco or nicotine? Yes [email or web address] Information not available 07/05/2021 What is your level of alcohol consumption? None [email or web address] Information not available 03/31/2025 Do you or have you ever used smokeless tobacco? Never used smokeless tobacco [email or web address] Information not available 07/05/2021 Are you able to walk independently without assistance or assistive devices? YESWOREST [email or web address] Information not available 07/05/2021 Are you able to care for yourself independently? Yes [email or web address] Information not available 12/06/2021 Do you have difficulty dressing, bathing, grooming, or toileting? No [email or web address] Information not available 12/06/2021 Do you or have you ever used e-cigarettes or vape? Current user of electronic cigarettes [email or web address] Information not available 07/05/2021 What is your exercise level? Occasional [email or web address] Information not available 07/05/2021 Mental Status Question Answer Note LastModified by Organization D etails LastModified Time Do you feel stressed (tense, restless, nervous, or anxious, or unable to sleep at night)? [id number] Information not available 07/05/2021 Family History Relationship Description Onset Age of this Age Resolved Age Notes LastModified by Organization Details LastModified Time Father No current problems or disability [email or web address] Not available 05/2021 09:06:31 Mother No current problems or disability [email or web address] Not available 05/2021 09:06:31 Medical History Condition [...] ICD10 Code Diagnosis IMO Codes Diagnosis Note [id number] Shawn Bradley MD [place] [address],[place] [address] 08/18/2025 09:40:51 08/18/2025 10:15:47 Gestational diabetes mellitus 54986278 O24.414 Z3A.36 18317685 [id number] [facility] [address] [place] [address] 08/18/2025 09:41:06 08/18/2025 11:24:04 Gestation period, 36 weeks 18172084 Z3A.36 6309840 cont pnv [id number] [facility] [address] [place] [address] 08/18/2025 09:41:16 08/18/2025 16:17:31 Gestational diabetes mellitus class A2 53334476 O24.414 05306060 [id number] Shawn Bradley MD [place] [address] [place] [address] 08/25/2025 14:26:29 08/25/2025 15:14:02 Gestational diabetes mellitus 06235401 O24.414 53010922 [id number] Anju Mcnamara CNM [place] [address] [place] [address] 08/25/2025 14:26:57 08/25/2025 15:53:52 Gestation period, 37 weeks 66914598 Z3A.37 1724119 continue vitamin 933053 Anju Mcnamara CNM [place] [address] [place] [address] 08/25/2025 16:48:00 08/25/2025 17:20:42 Gestational diabetes mellitus 94545491 O24.419 33920558 [id number] Shawn Bradley MD [place] [address] [address] 09/13/2025 15:30:32 09/13/2025 20:43:16 [id number] Shawn Bradley MD [place] [address] [address] 09/14/2025 12:04:57 09/15/2025 08:16:47 Anxiety 60457441 F41.9 47135 this patient presents for severe anxiety. She had been previously treated with 50 of sertraline . She has anxiety that is making her blood pressure seem elevated at times. She has panicky and anxious. She has obsessive thoughts. She has appointmen t with psychiatry in the future. However, we need to control her anxiety at this moment. We will increase her sertraline to 100 mg. We also will add 50 of Lamictal b.i.d.. She will follow up in 2 weeks. I spent over 20 minutes on her care in total. We talked about the risks, benefits, and alternativ es of the medication . She was given precaution s and instructio ns. Health Concerns Section Related Observation LastModified by Organization Detai ls LastModified Time None Recorded Concern Status LastModified by Organization Details LastModified Time None Recorded Payers Encounter Date Sequence Insurance Name Policy Number Policy Roberts Covered Member ID Roberts Member ID Guarantor Name 09/14/2025 1 [facility] (MEDICAID HMO) [id number] Yuni Mejia [id number] Yuni Mejia Notes Date Note Type Note Provider Name and Address Organization Details Recorded Time 09/14/2025 text/html this patient presents for severe anxiety. She had been previously treated with 50 of sertraline. She has anxiety that is making her blood pressure seem elevated at times. She has panicky and anxious. She has obsessive thoughts. She has appointment with psychiatry in the future. However, we need to control her anxiety at this moment. We will increase her sertraline to 100 mg. We also will add 50 of Lamictal b.i.d.. She will follow up in 2 weeks. I spent over 20 minutes on her care in total. We talked about the risks, benefits, and alternatives of the medication. She was given precautions and instructions. Shawn Bradley MD [address], [place], [address], [place] [facility] 09/14/2025 20:12:48 OBGyn Episode Ob Episode Information Episode Created Date Number of Fetuses Patient Bloodtype Patient rh Status Prepregnancy Weight lbs Domestic Partner Domestic Partner Phone Father Name Hull Inspector Status 03/02/20 25 1 B Positive 164 CLOSED Fetus Data First Name Last Name Admitted to NICU Weight (g) Sex Living Outcome Pediatric Complications Fetus ID Race Codes Race Delivery Type Gladis false 4025.62 9 F true Full Term 16076 Vaginal Delivery Problems Problem Notes SDH form completed 5GI consult Tachycardia Holter monitor 72 order- pt sent back on 03-27-25 Cardiology referral faxed per Dr Martínez office calling pt 04/21 to schedule consult scheduled 05/11 11:15AM Problem Name Start Date End Date Resolution Snomed Code Not e Uncomplicated moderate persistent asthma 03/02/2025 427777548 albuterol prn Abnormal placenta affecting management of mother 05/04/2025 77061881 MCI serial grow th Iron deficiency anemia 05/25/2025 08949139 [facility] tx [place] 200mg x1 HGB 10.6 Nausea and vomiting 03/02/2025 84082798 Anxiety 03/02/2025 53463990 sertralin e started 03/02/25 changed to prozac 10 on Gestational diabetes mellitus 07/08/2025 19985376 checking bs QID - ruled in GDM Referral faxed to [facility] 07/07 Frequent headache 05/03/2025 [id number] [place] to [facility] 05/21, discharge 05/23 [facility] referral faxed 05/24 [facility] Neurology consult pending per KAJAL Pittman [facility]- [facility] unable to see pt due to insurance [facility] 07/05/25 Level US & Consult (see [facility] consult zayas recommendations ) regimen prn Imitrex 50mg for acute migraine, vitamin B2 (Riboflavin) 400mg, Coenzyme q10 300mg and magnesium oxide 200 to 600mg daily. minimize use of Excedrin or Tylenol to no more than 2-3 times a week. 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/2025 7621474 32wk growth us Jun Calculation Initial Jun [...] Weight in lbs Pre/Post Dialysis Refused Weight 158.190576068367 BP Diastolic BP Location Tested BP Systolic [...] Weight in lbs Pre/Post Dialysis Refused Weight 158.331336537085 BP Diastolic BP Location Tested BP Systolic [...] Weight in lbs Pre/Post Dialysis Refused Weight 162.528154265204 BP Diastolic BP Location Tested BP Systolic BP Type 78 123 Fetus Heart Rate Present A 148 Fetus Movement A Yes Comments Patient is having having ronny n, cramping and vaginal discharge. went to ed exam done cultures and rx sent, ?FM, await ekg monitor results rfilled zofran, precautions and education [...] Type Weight in lbs Pre/Post Dialysis Refused 168.689128075497 BP Diastolic BP Location Tested BP Systolic [...] Type Weight in lbs Pre/Post Dialysis Refused 169.569311077284 BP Diastolic BP Location Tested BP Systolic [...] Weight in lbs Pre/Post Dialysis Refused Weight 175.836143906678 BP Diastolic BP Location Tested BP Systolic [...] Weight in lbs Pre/Post Dialysis Refused Weight 182.340731359348 BP Diastolic BP Location Tested BP Systolic [...] Weight in lbs Pre/Post Dialysis Refused Weight 181.951147327578 BP Diastolic BP Location Tested BP Systolic BP Type 73 L arm 131 sitting Fetus Heart Rate Present Fetus Movement A Yes Comments viral URI testied neg at urg ent care, nausea resolved, efw 68%, +FM plan education and precautions f/u 2 weeks diagnosed GDM, plan hand chain maker, gave list reviewed protein vs carb Flowsheet Date 07/21/2025 Gibson Score Blood Edema Fundus Height Fundus Units Glucose Ketones Leukocytes Nitrite Labor Signs Protein Cervic Dilation Cervic Effacement Cervic Station Type Weight in lbs Pre/Post Dialysis Refused Weight 181.607739371291 BP Diastolic BP Location Tested BP Systolic BP Type 78 L arm 127 sitting Fetus Heart Rate Present A 150 Fetus Movement A Yes Comments rpt urine culture +FM review ed blood sugars, meets with hand chain maker today, precautions and education f/u 2 weeks [...] Weight in lbs Pre/Post Dialysis Refused Weight 181.411167527440 BP Diastolic BP Location Tested BP Systolic [...] Weight in lbs Pre/Post Dialysis Refused Weight 183.688029227380 BP Diastolic BP Location Tested BP Systolic [...] Type Weight in lbs Pre/Post Dialysis Refused 184.859341899711 BP Diastolic BP Location Tested BP Systolic [...] Type Weight in lbs Pre/Post Dialysis Refused 184.753263536277 BP Diastolic BP Location Tested BP Systolic [...] Type Weight in lbs Pre/Post Dialysis Refused 184.893783022726 BP Diastolic BP Location Tested BP Systolic [...] Weight in lbs Pre/Post Dialysis Refused Weight 184.721989588333 BP Diastolic BP Location Tested BP Systolic [...] Weight in lbs Pre/Post Dialysis Refused Weight 164.049992495449 BP Diastolic BP Location Tested BP Systolic [...]
--- OUTSIDE RECORDS SUMMARY | 2025-09-16 17:56 | XMS_ITS ---
Author Organization Unknown Address [address] [place] [phone] Phone Care Team Providers Care Airline Reservation Agent Name Role Phone LINDA WRIGHT Attending Unavailable MILTON EPSTEIN Primary Unavailable DANICA LAYNE Secondary Unavailable Immunization Immunization Date Status Additional Notes [...] CBC W/ DIFF - Collect Date/T randall: 09/12/2024 09:27 [facility] ID: [id number] [address] [address], [place], [id number] LOINC: 96551-3 Test Value Unit Reference Range Code Code System Flag WBC 7.6 10^3uL L=4.8 H=10.8 RBC 4.83 10^6uL L=4.20 H=5.40 HEMOGLOBIN 13.1 g/dL L=12.0 H=16.0 718-7 LOINC HEMATOCRIT 40.9 VOL% L=37.0 H=47.0 4544-3 LOINC MCV 84.7 fL L=81.0 H=99.0 MCH 27.1 pg L=27.0 H=32.0 MCHC 32.0 g/dL L=32.0 H=36.0 PLATELETS 305 10^3uL L=100 H=400 15015-8 LOINC RDW 12.1 % L=11.7 H=15.5 %GRAN 53.6 % L=40.0 H=70.0 02487-5 LOINC %LYMPH 34.1 % L=20.0 H=45.0 736-9 LOINC %MONO 8.1 % L=2.0 H=10.0 68248-7 LOINC %EOS 3.5 % L=0.0 H=6.0 713-8 LOINC %BASO 0.4 % L=0.0 H=3.0 706-2 LOINC #NEUT 4.1 10^3uL L=1.9 H=7.6 02824-5 LOINC #LYMPH 2.6 10^3uL L=0.9 H=4.9 40501-2 LOINC #MONO 0.6 10^3uL L=0.1 H=0.9 36387-5 LOINC #EOS 0.3 10^3uL L=0.0 H=0.6 712-0 LOINC #BASO 0.03 10^3uL L=0.00 H=0.10 87197-5 LOINC #IM GRANS 0.0 10^3uL L=0.0 H=7.0 07129-5 LOINC %IM GRANS 0.3 % L=0.0 H=5.0 53652-8 LOINC %NRB 0.0 L=0.0 H=0.2 57373-9 LOINC #NRB 0.000 L=0.000 H=0.012 23128-0 LOINC MANUAL DIFF NOT INDICATED RBC MORPH NOT INDICATED COMPREHENSIVE METABOLIC PANE L - Collect Date/Time: 09/12/2024 09:27 [facility] ID: [id number] [id number] [address], [place], [id number] LOINC: 85880-1 Test Value Unit Reference Range Code Code System Flag FASTING YES BUN 17 mg/dL L=7 H=20 3094-0 LOINC CREATININE 0.70 mg/dL L=0.52 H=1.04 2160-0 LOINC GLUCOSE 95 mg/dL L=74 H=106 2345-7 LOINC SODIUM 140 mmol/L L=132 H=144 2951-2 LOINC POTASSIUM 3.9 mmol/L L=3.5 H=5.1 2823-3 LOINC CHLORIDE 102 mmol/L L=98 H=107 2075-0 LOINC CO2 28.0 mmol/L L=22.0 H=30.0 2028-9 LOINC ANION GAP 14 L=10 H=20 91259-8 LOINC OSMOLALITY 291 mOs/kG L=280 H=296 00533-5 LOINC BUN/CREAT 24.3 3097-3 LOINC CALCIUM 9.6 mg/dL L=8.3 H=10.5 30525-3 LOINC AST 45 U/L L=15 H=46 1920-8 LOINC ALT 45 U/L L=9 H=72 1742-6 LOINC ALKALINE PHOS 78 U/L L=38 H=126 6768-6 LOINC TOTAL BILI 0.5 mg/dL L=0.2 H=1.3 1975-2 LOINC ALBUMIN 4.7 G/dL L=3.5 H=5.0 1751-7 LOINC TOTAL PROTEIN 8.1 g/L L=6.3 H=8.2 2885-2 LOINC A/G RATIO 1.4 30843-5 LOINC AGE 24 25034-2 LOINC eGFR NON-AFR 108 ml/min eGFR AFR AMER 131 ml/min TSH / REFLEX FT4 - Collect D ate/Time: 09/12/2024 09:27 [facility] ID: [id number] [address] [address], [place], [id number] LOINC: Test Value Unit Reference Range Code Code System Flag TSH 0.947 uIU/L L=0.470 H=4.680 09660-2 LOINC Social History Type Status Start Date End Date Code Code Syst em Smoking History Never smoker (Never Smoked) 072393633 SNOMED CT Sex Female Assessment You had [...] 6002 SNOMED-CT UNSPECIFIED ABDOMINAL PAIN active 215 78363 SNOMED-CT Allergies and Adverse Reactions Allergy Substance Reaction Severity Start Date Concern Status Co de Code System AMOXICILLIN Active 723 RxNorm TERBUTALINE Active 96796 RxNorm Plan of Treatment Stress Test Treadmill 01/21/2025 Battery Tester Consult 04/27/2025 Encounters Encounter Diagnosis Start Date Code Code Sys tem Encounter for other preprocedural examination 09/12/20 SNOMED-CT Personal Care Team Section Performer Name [...]
--- OUTSIDE RECORDS SUMMARY | 2025-09-16 17:56 | XMS_ITS ---
Author Organization Unknown Address [address] [place] [phone] Phone Care Team Providers Care Polishing Wheel Repairer Name Role Phone RENATE MOOER Attending Unavailable SEAN Balderrama Primary Unavailable Immunization [...] CBC W/ DIFF - Collect Date/T randall: 10/06/2023 12:25 [facility] ID: [id number] [address] [place], [place], [phone] LOINC: 54049-7 Test Value Unit Reference Range Code Code System Flag WBC 10.5 10^3uL L=4.8 H=10.8 RBC 4.02 10^6uL L=4.20 H=5.40 L HEMOGLOBIN 11.2 g/dL L=12.0 H=16.0 718-7 LOINC L HEMATOCRIT 33.3 VOL% L=37.0 H=47.0 4544-3 LOINC L MCV 82.8 fL L=81.0 H=99.0 MCH 27.9 pg L=27.0 H=32.0 MCHC 33.6 g/dL L=32.0 H=36.0 PLATELETS 306 10^3uL L=100 H=400 55909-6 LOINC RDW 12.1 % L=11.7 H=15.5 %GRAN 78.1 % L=40.0 H=70.0 20246-1 LOINC H %LYMPH 14.2 % L=20.0 H=45.0 736-9 LOINC L %MONO 6.5 % L=2.0 H=10.0 41993-5 LOINC %EOS 0.6 % L=0.0 H=6.0 713-8 LOINC %BASO 0.2 % L=0.0 H=3.0 706-2 LOINC #NEUT 8.2 10^3uL L=1.9 H=7.6 29804-6 LOINC H #LYMPH 1.5 10^3uL L=0.9 H=4.9 02727-7 LOINC #MONO 0.7 10^3uL L=0.1 H=0.9 37018-5 LOINC #EOS 0.1 10^3uL L=0.0 H=0.6 712-0 LOINC #BASO 0.02 10^3uL L=0.00 H=0.10 79649-4 LOINC #IM GRANS 0.0 10^3uL L=0.0 H=7.0 60911-3 LOINC %IM GRANS 0.4 % L=0.0 H=5.0 56359-9 LOINC %NRB 0.0 L=0.0 H=0.2 63474-3 LOINC #NRB 0.000 L=0.000 H=0.012 06587-0 LOINC MANUAL DIFF NOT INDICATED RBC MORPH NOT INDICATED COMPREHENSIVE METABOLIC PANE L - Collect Date/Time: 10/06/2023 12:25 [facility] ID: [id number] [address] [place], [place], [phone] LOINC: 08780-5 Test Value Unit Reference Range Code Code System Flag FASTING UNKNOWN BUN 11 mg/dL L=7 H=20 3094-0 LOINC CREATININE 0.40 mg/dL L=0.52 H=1.04 2160-0 LOINC L GLUCOSE 89 mg/dL L=74 H=106 2345-7 LOINC SODIUM 137 mmol/L L=132 H=144 2951-2 LOINC POTASSIUM 3.3 mmol/L L=3.5 H=5.1 2823-3 LOINC L CHLORIDE 103 mmol/L L=98 H=107 2075-0 LOINC CO2 23.0 mmol/L L=22.0 H=30.0 2028-9 LOINC ANION GAP 14 L=10 H=20 40810-4 LOINC OSMOLALITY 283 mOs/kG L=280 H=296 92324-3 LOINC BUN/CREAT 27.5 3097-3 LOINC CALCIUM 9.3 mg/dL L=8.3 H=10.5 53363-6 LOINC AST 21 U/L L=15 H=46 1920-8 LOINC ALT 13 U/L L=9 H=72 1742-6 LOINC ALKALINE PHOS 62 U/L L=38 H=126 6768-6 LOINC TOTAL BILI 0.3 mg/dL L=0.2 H=1.3 1975-2 LOINC ALBUMIN 4.3 G/dL L=3.5 H=5.0 1751-7 LOINC TOTAL PROTEIN 7.5 g/L L=6.3 H=8.2 2885-2 LOINC A/G RATIO 1.3 94056-9 LOINC AGE 23 69936-0 LOINC eGFR NON-AFR 208 ml/min eGFR AFR AMER 252 ml/min PROTIME - Collect Date/Time: 10/06/2023 12:25 [facility] ID: [id number] [place] [address], [phone] LOINC: 61633-2 Test Value Unit Reference Range Code Code System Flag PT 10.5 Sec L=9.7 H=11.7 21642-2 LOINC INR 1.0 Sec L=0.9 H=1.1 73251-1 LOINC PTT - Collect Date/Time: 07/2023 12:25 [facility] ID: [id number] [address] [place] [address], [phone] LOINC: 57407-7 Test Value Unit Reference Range Code Code System Flag PTT 26.3 Sec L=23.0 H=31.2 LIPASE - Collect Date/Time: 10/06/2023 12:25 [facility] ID: [id number] [address] [place] [address], [phone] LOINC: 3040-3 Test Value Unit Reference Range Code Code System Flag LIPASE 63 U/L L=23 H=300 3040-3 LOINC BETA HCG-QUANT - Collect Neil e/Time: 10/06/2023 12:25 [facility] ID: [id number] [address] [place] [address], [phone] LOINC: 72405-4 Test Value Unit Reference Range Code Code System Flag BETA HCG-QUANT 837063.00 mIU/mL L=0.00 H=6.00 77730-8 LOINC H Social History Type Status Start Date End Date Code Code Syst em Smoking History Never smoker (Never Smoked) 652076619 SNOMED CT Sex Female Assessment You had [...] 6002 SNOMED-CT UNSPECIFIED ABDOMINAL PAIN active 215 93386 SNOMED-CT Allergies and Adverse Reactions Allergy Substance Reaction Severity Start Date Concern Status Co de Code System AMOXICILLIN Active 723 RxNorm TERBUTALINE Active 57837 RxNorm Plan of Treatment Stress Test Treadmill 01/21/2025 Marketing Forecaster Consult 04/27/2025 Encounters Encounter Diagnosis Start Date Code Code Sys tem Mild hyperemesis gravidarum 10/06/2023 SNOMED-CT Personal Care Team Section Performer Name Performer Role Active Date Inactive Da te KRAIG ESTRADA PCP - Primary care physician 2021-10 0-24 2024-09-12 KRAIG ESTRADA PCP - Primary care physician -2024-09-12 KRAIG ESTRADA PCP - Primary care physician 2023-0 1-10 2024-09-12 KRAIG ESTRADA PCP - Primary care physician 2023-0 7-16 2024-09-12 Hong Abdi PCP - Primary care physician 2024-09-12
--- OUTSIDE RECORDS SUMMARY | 2025-09-16 17:56 | XMS_ITS ---
Author Organization Unknown Address [address] [place] [phone] Phone Care Team Providers Care Unit Controller Name Role Phone MIKE CURTIS Attending Unavailable SEAN Balderrama Primary Unavailable Immunization [...] Results TROPONIN LEVEL - Collect Neil e/Time: 07/10/2024 09:21 [facility] ID: [id number] [address] [place] [address], [phone] LOINC: 78179-1 Test Value Unit Reference Range Code Code System Flag TROPONIN < 0.012 ng/mL L=0.000 H=0.033 73715-1 LOINC D DIMER - Collect Date/Time: 07/10/2024 09:21 [facility] ID: [id number] [address] [place] [address], [phone] LOINC: Test Value Unit Reference Range Code Code System Flag DDIMER 0.95 mg/L FEU L=0.00 H=0.50 H Social History Type Status Start Date End Date Code Code Syst em Smoking History Never smoker (Never Smoked) 848872397 SNOMED CT Sex Female Assessment You had [...] 6002 SNOMED-CT UNSPECIFIED ABDOMINAL PAIN active 215 02046 SNOMED-CT Allergies and Adverse Reactions Allergy Substance Reaction Severity Start Date Concern Status Co de Code System AMOXICILLIN Active 723 RxNorm TERBUTALINE Active 76906 RxNorm Plan of Treatment Stress Test Treadmill 01/21/2025 Building Construction Inspector Consult 04/27/2025 Encounters Encounter Diagnosis Start Date Code Code Sys tem coagulation defects 07/10/2024 SNOMED-CT Personal Care Team Section Performer Name Performer Role Active Date Inactive Da te KRAIG ESTRADA PCP - Primary care physician 2021-10 024 2024-09-12 KRAIG ESTRADA PCP - Primary care physician -10 2024-09-12 KRAIG ESTRADA PCP - Primary care physician 0 -10 2024-09-12 KRAIG ESTRADA PCP - Primary care physician -16 2024-09-12 Hong Abdi PCP - Primary care physician 2024-09-12
--- OUTSIDE RECORDS SUMMARY | 2025-09-16 17:56 | XMS_ITS | Continuity of Care Document ---
Author Organization [facility] [place], [facility] Address [address] [place] [address] Care Team Providers Care Proofer Name Role Phone CARLOS ESTRADA Primary Care Provider Assessment No assessment recorded. Plan of Treatment Reminders Order Date Submit Date Provider Last Modified By Organization Details Last Modified Time Details Appointments None record ed. Lab None record ed. Referral None record ed. Procedures None record ed. Surgeries None record ed. Imaging non-st ress test 025 08/25/20 25 [email or web address] [place], [address], [place], [address], 17:20:42 Medication Orders None record ed. Patient TargetsNo targets recorded. Patient InstructionsNo instructions recorded. Reason for Referral None Reported. Results Created Date Observation Date Name Description Value Unit Range Abnormal Flag Note LastModifiedBy Organization Detail LastModifiedTime 03/06/20 25 03/06/2025 [UNIT Y] ANEUP LOIDY NIPT fraction 5.7% normal Not Available [facility] [address], [place], [address], 03/06/2025 03:58:26 03/06/20 25 03/06/2025 [UNIT Y] ANEUP LOIDY NIPT sex chromosome aneuploidy NOT DETECT ED normal Not Available [facility] [address], [place], [address], 03/06/2025 03:58:26 03/06/20 25 03/06/2025 [UNIT Y] ANEUP LOIDY NIPT monosomy X LOW RISK <1 in 10,000 normal Not Available [facility] [address], [place], [address], 03/06/2025 03:58:26 03/06/20 25 03/06/2025 [UNIT Y] ANEUP LOIDY NIPT trisomy 13 LOW RISK <1 in 10,000 normal Not Available [facility] [address], [place], [address], 03/06/2025 03:58:26 03/06/20 25 03/06/2025 [UNIT Y] ANEUP LOIDY NIPT trisomy 18 LOW RISK <1 in 10,000 normal Not Available [facility] [address], [place], [address], 03/06/2025 03:58:26 03/06/20 25 03/06/2025 [UNIT Y] ANEUP LOIDY NIPT trisomy 21 LOW RISK <1 in 10,000 normal Not Available [facility] [address], [place], [address], 03/06/2025 03:58:26 03/06/20 25 03/06/2025 [UNIT Y] ANEUP LOIDY NIPT sex FEMALE normal Not Available [facility] [address], [place], [address], 03/06/2025 03:58:26 03/06/20 25 03/06/2025 [UNIT Y] ANEUP LOIDY NIPT gestation SINGLE TON normal Not Available [facility] [address], [place], [address], 03/06/2025 03:58:26 03/06/20 25 03/06/2025 [UNIT Y] ANEUP LOIDY NIPT for detailed report, see pdf See PDF normal Not Available [facility] [address], [place], [address], 03/06/2025 03:58:26 03/02/20 25 03/02/2025 CULTU RE: URINE result report SEE RESULT S BELOW Test: Cultu re: Urine Speci men Sourc e: Urine - Clean Catch Speci men Type: Urine Speci men Date: 025 1455 Resul t Date: 025 2138 Resul t Statu s: Final resul t Abnor mal: No Resul ting Lab: [facility] [address] [facility] [address] Tel: CULTU RE ----- ----- ----- --- No growt h in 1 day (dete ction level of 10,00 0 colon ies / ml.) Not Available [facility] (Lab) [address] [facility] [address], [place], [address], 03/03/2025 22:42:27 03/12/2003/12/2025 CULTU RE: URINE result report SEE RESULT S BELOW Test: Cultu re: Urine Speci men Sourc e: Urine - Clean Catch Speci men Type: Urine Speci men Date: 2024 1600 Resul t Date: 2024 0610 Resul t Statu s: Final resul t Abnor mal: No Resul ting Lab: [facility] [address] [facility] [address] Tel: CULTU RE ----- ----- ----- --- No growt h in 1 day (dete ction level of 10,00 0 colon ies / ml.) Not Available [facility] (Lab) [address], [place], [address], 03/14/2025 07:15:03 03/12/2003/12/2025 urina lysis , dipst ick Leukocytes ++ Not Available [address], [place], [address], 03/12/2025 16:45:06 03/12/2003/12/2025 urina lysis , dipst ick Protein + Not Available [place] [address], [place], [address], 03/12/2025 16:45:06 03/12/20 25 03/12/2025 urina lysis , dipst ick pH 5 Not Available [place] [address], [place], [address], 03/12/2025 16:45:06 03/12/20 25 03/12/2025 urina lysis , dipst ick Blood trace Not Available [place] [address], [place], [address], 03/12/2025 16:45:06 03/12/20 25 03/12/2025 urina lysis , dipst ick Specific [place] 1.015 Not Available [facility] [address], [place], [address], 03/12/2025 16:45:06 03/12/20 25 03/12/2025 urina lysis , dipst ick Ketone +++ Not Available [place] [address], [place], [address], 03/12/2025 16:45:06 03/31/20 25 03/31/2025 TSH, REFLE X FREE T4 TSH 0.42 uIU/m L 0.30-5 .33 Not Available [facility] (Lab) [address], [place], [address], 04/01/2025 03:05:12 03/31/20 25 03/31/2025 CULTU RE: URINE result report SEE RESULT S BELOW Test: Cultu re: Urine Speci men Sourc e: Urine Voide d Speci men Type: Urine Speci men Date: 1710 Resul t Date: 6 Resul t Statu s: Final resul t Abnor mal: No Resul ting Lab: [facility] [address] [facility] [address] Tel: CULTU RE ----- ----- ----- --- Cultu re resul t (>=3 organ isms prese nt) indic ates possi ble conta minat ion. Repea t cultu re if sympt oms indic ate. Not Available [facility] (Lab) [address], [place], [address], 04/01/2025 23:59:19 03/31/20 25 03/31/2025 urina lysis , dipst ick Leukocytes +1 Not Available [address], [place], [address], 03/31/2025 09:23:13 03/31/20 25 03/31/2025 urina lysis , dipst ick Nitrite normal Not Available [place] [address], [place], [address], 03/31/2025 09:23:13 03/31/20 25 03/31/2025 urina lysis , dipst ick Urobilinogen normal Not Available [facility] [address], [place], [address], 03/31/2025 09:23:13 03/31/20 25 03/31/2025 urina lysis , dipst ick Protein trace Not Available [place] [address], [place], [address], 03/31/2025 09:23:13 03/31/20 25 03/31/2025 urina lysis , dipst ick pH 5 Not Available [place] [address], [place], [address], 03/31/2025 09:23:13 03/31/20 25 03/31/2025 urina lysis , dipst ick Specific [place] 1.020 Not Available [facility] [address], [place], [address], 03/31/2025 09:23:13 03/31/20 25 03/31/2025 urina lysis , dipst ick Ketone normal Not Available [place] [address], [place], [address], 03/31/2025 09:23:13 03/31/20 25 03/31/2025 urina lysis , dipst ick Bilirubin normal Not Available [facility] [address], [place], [address], 03/31/2025 09:23:13 03/31/20 25 03/31/2025 urina lysis , dipst ick Glucose normal Not Available [place] [address], [place], [address], 03/31/2025 09:23:13 03/31/20 25 03/31/2025 urina lysis , dipst ick Appearance normal Not Available [facility] [address], [place], [address], 03/31/2025 09:23:13 03/31/20 25 03/31/2025 urina lysis , dipst ick Color normal Not Available [place] [address], [place], [address], 03/31/2025 09:23:13 04/01/20 25 04/01/2025 WOMEN 'S HEALT H SWAB PLUS, DENIS bacterial vaginosis (bv), tma Negati ve negati ve Not Available [facility] (Lab) [address] [place], [address], 04/02/2025 14:08:45 04/01/20 25 04/01/2025 [facility], DENIS mekhi species, tma Negati ve negati ve Not Available [facility] (Lab) [address] [place], [address], 04/02/2025 14:08:45 04/01/20 25 04/01/2025 WOMEN 'S HEALT H SWAB PLUS, DENIS mekhi glabrata, tma Negati ve negati ve Not Available [facility] (Lab) [address] [place], [address], 04/02/2025 14:08:45 04/01/20 25 04/01/2025 [facility], DENIS trichomonas vaginalis, tma Negati ve negati ve Not Available [facility] (Lab) [address], [place], [address], 04/02/2025 14:08:45 04/01/20 25 04/01/2025 [facility], DENIS chlamydia trachomatis, PCR Negati ve negati ve Not Available [facility] (Lab) [address] [place], [address], 04/02/2025 14:08:45 04/01/20 25 04/01/2025 [facility], DENIS neisseria gonorrhoeae, [...] ded in this panel . Not Available [facility] (Lab) [address] [place], [address], 04/02/2025 14:08:45 04/22/2004/22/2025 CULTU RE: URINE result report SEE RESULT S BELOW Test: Cultu re: Urine Speci men Sourc e: Urine Voide d Speci men Type: Urine Speci men Date: 2024 1314 Resul t Date: 2024 0322 Resul t Statu s: Final resul t Abnor mal: No Resul ting Lab: [facility] [address] [facility] [address] Tel: CULTU RE ----- ----- ----- --- No growt h in 1 day (dete ction level of 10,00 0 colon ies / ml.) Not Available [facility] (Lab) [address], [place], [address], 04/24/2025 04:28:01 04/22/20 25 04/22/2025 urina lysis , dipst ick Leukocytes + Not Available [address], [place], [address], 04/22/2025 10:01:51 04/22/20 25 04/22/2025 urina lysis , dipst ick Protein + Not Available [place] [address], [place], [address], 04/22/2025 10:01:51 04/22/20 25 04/22/2025 urina lysis , dipst ick pH 8 Not Available [place] [address], [place], [address], 04/22/2025 10:01:51 04/22/20 25 04/22/2025 urina lysis , dipst ick Blood + Not Available [place] [address], [place], [address], 04/22/2025 10:01:51 04/22/2004/22/2025 urina lysis , dipst ick Specific [place] 1.010 Not Available [facility] [address], [place], [address], 04/22/2025 10:01:51 04/22/2004/22/2025 urina lysis , dipst ick Ketone + Not Available [place] [address], [place], [address], 04/22/2025 10:01:51 06/23/2006/23/2025 HEMAT OCRIT (HCT) HCT 35.6 % (based on docume nted legal sex) 34.0-4 5.0 Not Available [facility] (Lab) [address], [place], [address], 06/24/2025 11:45:32 06/23/20 25 06/23/2025 HEMOG LOBIN (HGB) HGB 11.1 g/dL (based on docume nted legal sex) 11.6-1 5.4 low Not Available [facility] (Lab) [address], [place], [address], 06/24/2025 11:45:32 06/23/20 25 06/23/2025 GTT - GESTA ROLAND L SCREE N, ACOG OB glucose, 1 hour screen 180 mg/dL 70-135 high Not Available [facility] (Lab) [address], [place], [address], 06/24/2025 11:45:33 06/23/20 25 06/23/2025 HIV 1/2 ANTIG EN/AN TIBOD Y, REFLE X CONFI RMATI ON HIV antigen/anti body Nonrea ctive nonrea ctive HIV-1 antig en and HIV-1 /HIV- 2 antib odies were not detec greg. No labor atory evide nce of HIV infec tion. Not Available [facility] (Lab) [address], [place], [address], 06/24/2025 11:45:33 06/23/20 25 06/23/2025 RPR SCREE N, REFLE X TITER /CONF IRMAT ION RPR qualitative Nonrea ctive nonrea ctive Not Available [facility] (Lab) [address], [place], [address], 06/24/2025 11:45:34 07/21/20 25 07/21/2025 CULTU RE: URINE result report SEE RESULT S BELOW Test: Cultu re: Urine Speci men Sourc e: Urine - Clean Catch Speci men Type: Urine Speci men Date: 2024 1024 Resul t Date: 2024 0252 Resul t Statu s: Final resul t Abnor mal: No Resul ting Lab: [facility] [address] [facility] [address] Tel: CULTU RE ----- ----- ----- --- No growt h in 1 day (dete ction level of 10,00 0 colon ies / ml.) Not Available [facility] (Lab) [address] [place], [address], 07/23/2025 03:57:01 07/21/2007/21/2025 urina lysis , dipst ick Leukocytes ++ Not Available [address], [place], [address], 07/21/2025 11:03:04 07/21/20 25 07/21/2025 urina lysis , dipst ick Nitrite neg Not Available [address], [place], [address], 07/21/2025 11:03:04 07/21/20 25 07/21/2025 urina lysis , dipst ick Urobilinogen neg Not Available [facility] [address], [place], [address], 07/21/2025 11:03:04 07/21/20 25 07/21/2025 urina lysis , dipst ick Protein + Not Available [place] [address], [place], [address], 07/21/2025 11:03:04 07/21/20 25 07/21/2025 urina lysis , dipst ick pH 5 Not Available [place] [address], [place], [address], 07/21/2025 11:03:04 07/21/20 25 07/21/2025 urina lysis , dipst ick Specific [place] 1.030 Not Available [facility] nita [address], [place], [address], 07/21/2025 11:03:04 07/21/20 25 07/21/2025 urina lysis , dipst ick Ketone +++ Not Available [place] [address], [place], [address], 07/21/2025 11:03:04 07/21/20 25 07/21/2025 urina lysis , dipst ick Bilirubin neg Not Available [facility] [address], [place], [address], 07/21/2025 11:03:04 07/21/20 25 07/21/2025 urina lysis , dipst ick Glucose neg Not Available [place] [address], [place], [address], 07/21/2025 11:03:04 07/21/20 25 07/21/2025 urina lysis , dipst ick Appearance cloudy Not Available [address], [place], [address], 07/21/2025 11:03:04 07/21/20 25 07/21/2025 urina lysis , dipst ick Color dark Not Available [place], [place], [address], 07/21/2025 11:03:04 08/04/20 25 08/04/2025 CMP(C OMPRE HENSI VE METAB OLIC PANEL ) sodium 138 mmol/ L 133-14 6 Not Available [facility] (Lab) [address], [place], [address], 08/05/2025 13:39:18 08/04/20 25 08/04/2025 CMP(C OMPRE HENSI VE METAB OLIC PANEL ) potassium 4.0 mmol/ L 3.5-5. 1 Not Available [facility] (Lab) [address], [place], [address], 08/05/2025 13:39:18 08/04/20 25 08/04/2025 CMP(C OMPRE HENSI VE METAB OLIC PANEL ) chloride 105 mmol/ L 98-107 Not Available [facility] (Lab) [address], [place], [address], 08/05/2025 13:39:18 08/04/20 25 08/04/2025 CMP(C OMPRE HENSI VE METAB OLIC PANEL ) carbon dioxide 25 mmol/ L 21-31 Not Available [facility] (Lab) [address], [place], [address], 08/05/2025 13:39:18 08/04/20 25 08/04/2025 CMP(C OMPRE HENSI VE METAB OLIC PANEL ) anion gap 8 mmol/ L 4-13 Not Available [facility] (Lab) [address], [place], [address], 08/05/2025 13:39:18 08/04/20 25 08/04/2025 CMP(C OMPRE HENSI VE METAB OLIC PANEL ) blood urea nitrogen 10 mg/dL 7-25 Not Available [facility] (Lab) [address], [place], [address], 08/05/2025 13:39:18 08/04/20 25 08/04/2025 CMP(C OMPRE HENSI VE METAB OLIC PANEL ) creatinine 0.41 mg/dL 0.60-1 .30 low Not Available [facility] (Lab) [address], [place], [address], 08/05/2025 13:39:18 08/04/20 25 08/04/2025 CMP(C OMPRE HENSI VE METAB OLIC PANEL ) egfrcr (CKD-epi 2020) >90 mL/mi n/1.7 3_m2 >=60 Not Available [facility] (Lab) [address], [place], [address], 08/05/2025 13:39:18 08/04/20 25 08/04/2025 CMP(C OMPRE HENSI VE METAB OLIC PANEL ) calcium 8.9 mg/dL 8.3-10 .5 Not Available [facility] (Lab) [address], [place], [address], 08/05/2025 13:39:18 08/04/20 25 08/04/2025 CMP(C OMPRE HENSI VE METAB OLIC PANEL ) glucose 116 mg/dL 70-100 high Not Available [facility] (Lab) [address], [place], [address], 08/05/2025 13:39:18 08/04/20 25 08/04/2025 CMP(C OMPRE HENSI VE METAB OLIC PANEL ) protein, total 6.1 g/dL 6.4-8. 3 low Not Available [facility] (Lab) [address], [place], [address], 08/05/2025 13:39:18 08/04/20 25 08/04/2025 CMP(C OMPRE HENSI VE METAB OLIC PANEL ) albumin 3.5 g/dL 3.5-5. 0 Not Available [facility] (Lab) [address], [place], [address], 08/05/2025 13:39:18 08/04/20 25 08/04/2025 CMP(C OMPRE HENSI VE METAB OLIC PANEL ) ALT 11 units /L 9-43 Not Available [facility] (Lab) [address], [place], [address], 08/05/2025 13:39:18 08/04/20 25 08/04/2025 CMP(C OMPRE HENSI VE METAB OLIC PANEL ) alkaline phosphatase 98 units /L 34-104 Not Available [facility] (Lab) [address], [place], [address], 08/05/2025 13:39:18 08/04/20 25 08/04/2025 CMP(C OMPRE HENSI VE METAB OLIC PANEL ) AST 15 units /L 13-39 Not Available [facility] (Lab) [address], [place], [address], 08/05/2025 13:39:18 08/04/20 25 08/04/2025 CMP(C OMPRE HENSI VE METAB OLIC PANEL ) bilirubin, total 0.3 mg/dL 0.2-1. 2 Not Available [facility] (Lab) [address], [place], [address], 08/05/2025 13:39:18 08/04/20 25 08/04/2025 BILE ACIDS , TOTAL bile acids, total 4 umol/ L 0-10 Test Perfo rmed by: [facility] [address] Not Available [facility] (Lab) [address], [place], [address], 08/05/2025 13:39:19 03/02/20 25 03/02/2025 US, obste tric, nucha l trans lucen cy No observ ation record ed. [email or web address] [place] [address], [place], [address], 03/02/2025 13:35:30 03/02/20 25 03/02/2025 US, obste tric, nucha l trans lucen cy No observ ation record ed. [email or web address] [address], [place], [address], 03/03/2025 14:08:39 03/08/20 25 03/08/2025 US, obste tric, 1st trime ster No observ ation record ed. [email or web address] [place] [address], [place], [address], 03/08/2025 12:22:22 03/08/20 25 03/08/2025 US, obste tric, 1st trime ster No observ ation record ed. [email or web address] [address], [place], [address], 03/10/2025 15:03:13 04/01/20 25 03/24/2025 [email or web address] r monit or No observ ation record ed. [address] [facility], [place], [address], 04/08/2025 12:36:45 04/01/20 25 03/22/2025 qamar r monit or No observ ation record ed. [address] (Pulmonary) [address] [place] [address] [address] [facility], [place], [address], 04/06/2025 08:59:34 04/20/20 25 04/20/2025 US, obste tric, limit ed No observ ation record ed. [email or web address] [place] [address], [place], [address], 04/20/2025 17:39:30 04/20/20 25 04/20/2025 US, obste tric, follo w-up No observ ation record ed. [email or web address] [address], [place], [address], 04/23/2025 08:32:54 04/28/20 25 04/28/2025 US, obste tric, 2nd or 3rd trime ster No observ ation record ed. [email or web address] [place] [address], [place], [address], 04/28/2025 17:48:42 04/28/20 25 04/28/2025 US, obste tric, 2nd or 3rd trime ster No observ ation record ed. [email or web address] [address], [place], [address], 05/04/2025 22:16:11 05/07/20 25 05/07/2025 non-s tress test No observ ation record ed. [address], [place], [address], 05/28/2025 13:33:54 05/21/20 25 05/21/2025 CT, head + brain , w/o contr ast No observ ation record ed. [email or web address], [place], [address], 05/24/2025 13:48:57 05/28/20 25 05/28/2025 US, obste tric, follo w-up No observ ation record ed. [email or web address] [address], [place], [address], 05/28/2025 17:32:34 05/28/20 25 05/28/2025 US, obste tric, follo w-up No observ ation record ed. [email or web address] [address], [place], [address], 06/01/2025 15:13:13 08/10/16 2506/07/2025 US, obste tric, follo w-up No observ ation record ed. [facility] [address] [facility], [place], [address], 06/15/2025 10:53:46 07/07/20 25 07/07/2025 US, obste tric, follo w-up No observ ation record ed. [email or web address] [place] [address], [place], [address], 07/07/2025 13:18:01 07/07/2007/07/2025 US, obste tric, follo w-up No observ ation record ed. [email or web address] [address], [place], [address], 07/07/2025 11:29:37 08/04/20 25 08/04/2025 US, obste tric, follo w-up No observ ation record ed. [email or web address] [place] [address], [place], [address], 08/04/2025 15:08:50 08/04/2008/04/2025 US, obste tric, follo w-up No observ ation record ed. [email or web address] [address], [place], [address], 08/06/2025 10:41:50 08/11/2008/11/2025 non-s tress test No observ ation record ed. [email or web address] [place] [address], [place], [address], 08/11/2025 17:37:52 08/11/20 non-s tress test No observ ation record ed. [email or web address] [place] [address], [place], [address], 08/11/2025 17:38:11 08/15/2008/15/2025 non-s tress test No observ ation record ed. [place] [id number] [facility] [address], [place], [address], 08/21/2025 10:18:57 08/15/2008/15/2025 US, obste tric, bioph ysica l profi le No observ ation record ed. [place] [id number] [facility] [address], [place], [address], 08/17/2025 10:50:53 08/18/2008/18/2025 US, obste tric, bioph ysica l profi le + non-s tress test No observ ation record ed. [email or web address] [place] [address], [place], [address], 08/18/2025 10:21:39 08/18/2008/18/2025 US, obste tric, bioph ysica l profi le + non-s tress test No observ ation record ed. [email or web address] [address], [place], [address], 08/18/2025 10:35:44 08/18/2008/18/2025 non-s tress test No observ ation record ed. [email or web address] [place] [address], [place], [address], 08/18/2025 17:34:03 08/18/20 non-s tress test No observ ation record ed. [email or web address] [place] [address], [place], [address], 08/18/2025 16:06:09 08/25/2008/25/2025 US, obste tric, bioph ysica l profi le + non-s tress test No observ ation record ed. [email or web address] [place] [address], [place], [address], 08/25/2025 18:52:06 08/25/2008/25/2025 US, obste tric, follo w-up No observ ation record ed. [email or web address] [address], [place], [address], 08/25/2025 15:47:28 08/25/2008/25/2025 non-s tress test No observ ation record ed. [email or web address] [place] [address], [place], [address], 08/25/2025 18:12:15 08/25/20 non-s tress test No observ ation record ed. [email or web address] [place] [address], [place], [address], 08/25/2025 17:21:19 08/30/20 25 08/30/2025 non-s tress test No observ ation record ed. [email or web address] [address] [place] [address], [id number], 09/15/2025 15:26:49 09/01/20 25 09/01/2025 non-s tress test No observ ation record ed. [place] [id number] [facility] [address], [place], [address], 09/13/2025 11:32:22 09/01/20 25 09/01/2025 [place], obste tric No observ ation record ed. [place] [id number] [facility] [address], [place], [address], 09/02/2025 15:56:01 09/01/20 25 09/01/2025 non-s tress test No observ ation record ed. [email or web address] [id number] [facility] [address], [place], [address], 09/02/2025 14:32:38 09/16/20 25 09/16/2025 imagi ng/di agnos tic resul t No observ ation record ed. [facility] [address], [place], [address], 09/16/2025 18:07:05 Result Notes None recorded. Problems Name Problem SNOMED Code Status Onset Date Resolution Date Notes Provider Name and Address Organization Details Recorded Time Hypereme sis 278777108 Completed phenerga n now prn Asia ramos [facility] 2 16:43:51 Anxiety in pregnanc y [id number] Completed will continue to monitor Asia ramos [facility] 2 16:43:51 Past pregnanc y history of gestatio nal diabetes mellitus [id number] Completed Early 1 hr GTT @ 20wks 11/03 APPT Asia ramos [facility] 2 16:43:51 Spinal muscular atrophy [id number] Completed Carrier - Not in contact with FOB. Asia ramos [facility], [facility] 2 16:43:51 Anxiety [id number] Completed prozac Karina ramos [facility] 4 11:00:46 Nausea 889532425 Completed d/c zofran pump 11/08 per pt request Karina ramos [facility] 4 11:00:46 Postpart um hemorrha ge [id number] Completed - 2017 with d&c Karina ramos [facility] 4 11:00:46 Normal pregnanc y in multigra jessy [id number] 19456 Completed 201907/05/2021 Encounte r for supervis ion of other normal pregnanc y, 3rd trimeste r;Record ed Elsewher e: No Locat ion: Jaelyn castillo [facility] S ource: EHR Associate Product Integrity Engineer yvrose: N Natalyati ce ID: 0001 Gigi lable Time: 10:45:00 AM Karina ramos [facility] 10:15:27 Gestatio n period, 37 weeks 80526329 Completed 201907/05/2021 37 weeks gestatio n of pregnanc y;Record ed Elsewher e: No [facility] ource: EHR Associate Product Integrity Engineer yvrose: N Natalyati ce ID: 0001 Gigi lable Time: 09:00:00 AM Karina ramos, [facility] 10:15:[address] Concept Completed 201907/05/2021 Matern care for abnlt fetl hrt rate or rhym, 3rd tri, unsp;Rec orded Elsewher e: No Locat ion: [facility] S ource: EHR Associate Product Integrity Engineer yvrose: N Natalyati ce ID: 0001 Gigi lable Time: 08:45:00 AM Karina ramos [facility] 10:15:29 Gestatio nal diabetes mellitus 57443601 Completed 201907/05/2021 Gestatio nal diabetes mellitus in pregnanc y, diet controll ed;Recor ded Elsewher e: No Locat ion: [facility] S ource: EHR Associate Product Integrity Engineer yvrose: N Natalyati ce ID: 0001 Gigi lable Time: 11:45:00 AM Karina ramos [facility] 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 10:15:13 Amenorrh ea 86863464 Completed 202007/10/2021 Tammi Jones null, [facility] 13:08:35 Pregnanc y 83565334 Completed 202003/29/2022 Emma Dykes null, [facility] 5 12:28:48 Pregnanc y 05450123 Completed 202304/22/2024 Emma Dykes null, [facility] 12:28:48 Headache 98207250 Active 2023 Karina Burroughs null, [facility] 16:19:28 Pregnanc y 55822179 Completed 202309/14/2025 Emma Dykes null, [facility] 5 12:28:48 Uncompli cated moderate persiste nt asthma 157666358 Completed 2024 albutero l prn Shawn Bradley MD [address], [place], [address], [facility] 13:08:36 Anxiety 23120534 Completed 2024 sertrali ne started 03/02/25 changed to prozac 10 on Shwan Bradley MD [address], [place], [address], [facility] 5 17:05:48 Nausea and vomiting 92471952 Completed 2024 Shawn Bradley MD [address], [place], [address], [facility] 13:20:27 Placenta circumva llata 7630943 Completed 2024 32wk growth Ryann ramos, [facility] 5 09:44:35 Frequent headache 251287077 Completed [address] [facility] 05/21, discharg e 05/23 MFM referral faxed 05/24 SS Neurolog y [facility] [...] than 2-3 times a week. Ryann ramos [facility] 5 10:55:26 Abnormal placenta affectin g manageme nt of mother 09220592 Completed 2024 MCI serial growth Ryann ramos [facility] 5 10:46:25 Iron deficien cy anemia 28897999 Com[facility] venofer 200mg x1 HGB 10.6 Ryann Castro rachel [facility] 5 15:21:25 Gestatio nal diabetes mellitus 97051082 Completed 2024 checking bs QID - ruled in GDM Referral faxed to [facility] 07/07 Ryann Castro rachel [facility] 5 14:36:52 Notes:[facility] for P[facility] line, and home health already caring for pt. Vladimir RDZ at [phone] Problem Notes None recorded. Procedures Surgical History Date Name Laterality Status Provider Name and Address Organization Details Recorded Time 025 SALPINGECTOMY, LAPAROSCOPIC (SURG) completed Not Available [facility] 09/06/2025 11:19:17 025 Date of Last Pap Smear completed Karina Burroughs [facility] 01/28/2025 11:19:42 024 Nexplanon Removal completed Shawn Bradley MD [address], [place], [address], [facility] 08/05/2024 15:09:58 024 Control Implant Insertion completed Anju Mcnamara CNM [address], [place], [address], [facility] 05/08/2024 17:59:34 024 cholecystectomy completed Karina Burroughs [facility] 03/31/2025 09:18:57 018 Dilation and Curettage completed Karina Burroughs [facility] 07/05/2021 10:17:50 Imaging Results None recorded. Procedure Notes None recorded. Medical Equipment None Reported. Allergies Allergen ID Allergen Name Allergen Category Reaction Reaction Severity Criticality Documentation Date Start Date Code Code System Note Provider Name and Address Organization Details Recorded Time 20065 terbutali ne medicatio n anaphylax is Not available Not available 01/27/20252021 15179 RxNorm Karina ramos, [facility] 16:19:27 97502 amoxicill in medicatio n Not available Not available Not available 09/10/2025 723 RxNorm Not Available gene - External Data Service - prod 16:39:37 53027 terbinafi ne medicatio n anaphylax is Not available [facility] 09/10/20252024 77057 RxNorm Not Available [employer] External Data Service - prod 16:40:54 [...] Prescrib ed Elsewher e: Yes Loca tion: [facility] odify By: prabhjot Lee r DateTime [...] n (supplie d by office) insert lot [id number] Exp 01/2026 Not Available Not Available Not Available 28 mg iron-800 mcg tablet 07/05 completed Prescrib ed Elsewher e: Yes Loca tion: [facility] odify By: prabhjot Lee r DateTime : 01/14/20 10:45:00 AM Not Available Not Available Not Available lidocaine 5 % topical ointment APPLY OINTMENT EXTERNAL LY TO RIBS THREE TIMES DAILY NEEDED 01/14 completed Not Available Not Available Not Available 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 08/25/2025 15:41:08 Date Recorded Body height Body mass index (BMI) Body weight Systolic And Diastolic Provider Name and Address Organization Details Last Updated DateTime 08/25/2025 162.56 cm 31.6 kg/m2 45829 g 108/72 mm[Hg] Emma Dykes [facility] 08/25/2025 17:18:37 Social History Question Answer Notes LastModified by Organizat ion Details LastModified Time Tobacco Smoking Status Former Smoker Karina ramos, [facility] 07/05/2021 09:06:21 If You Are , What Was Your Level Of Alcohol Consumption Prior To ? Occasional [email or web address] Information not available 03/31/2025 Are You Blind Or Do You Have Difficulty Seeing? No [email or web address] Information not available 07/05/2021 What Is Your Level Of Caffeine Consumption? Heavy [email or web address] Information not available 07/05/2021 In The 14 Days Before Symptom Onset, Have You Had Close [facility] While That Case Was Ill? No [email or web address] Information not available 07/05/2021 In The 14 Days Before Symptom Onset, Have You Had Close Contact With A Person Who Is Under Investigation For COVID-19 While That Person Was Ill? No [email or web address] Information not available 07/05/2021 Have You Been To An Area Known To Be High Risk For COVID-19? No [email or web address] Information not available 07/05/2021 Are You Deaf Or Do You Have Serious Difficulty Hearing? No [email or web address] Information not available 07/05/2021 What Type Of Diet Are You Following? REGULAR Information not available 07/05/2021 Which Illicit Or Recreational Drugs Have You Used? Marijuana [email or web address] Information not available 07/05/2021 Have You Ever Been Counseled For Unhealthy Alcohol Use? No [email or web address] Information not available 07/05/2021 Do You Use Your Seat Belt Or Car Seat Routinely? Yes [email or web address] Information not available 07/05/2021 Do You Have Smoke And Carbon Monoxide Detectors In Your Home? Yes [email or web address] Information not available 07/05/2021 Do You Use Sunscreen Routinely? Yes [email or web address] Information not available 07/05/2021 Has Tobacco Cessation Counseling Been Provided? No [email or web address] Information not available 07/05/2021 Have You Used IV Drugs? No [email or web address] Information not available 07/05/2021 Do You Have Difficulty Walking Or Climbing Stairs? No [email or web address] Information not available 12/06/2021 Sex: Unknown Functional Status Question Answer Note LastModified by Organizat ion Details LastModified Time Do you use any illicit or recreational drugs? Yes [email or web address] Information not available 07/05/2021 Do you or have you ever used any other forms of tobacco or nicotine? Yes [email or web address] Information not available 07/05/2021 What is your level of alcohol consumption? None [email or web address] Information not available 03/31/2025 Do you or have you ever used smokeless tobacco? Never used smokeless tobacco [email or web address] Information not available 07/05/2021 Are you able to walk independently without assistance or assistive devices? YESWOREST [email or web address] Information not available 07/05/2021 Are you able to care for yourself independently? Yes [email or web address] Information not available 12/06/2021 Do you have difficulty dressing, bathing, grooming, or toileting? No [email or web address] Information not available 12/06/2021 Do you or have you ever used e-cigarettes or vape? Current user of electronic cigarettes [email or web address] Information not available 07/05/2021 What is your exercise level? Occasional [email or web address] Information not available 07/05/2021 Mental Status Question Answer Note LastModified by Organization D etails LastModified Time Do you feel stressed (tense, restless, nervous, or anxious, or unable to sleep at night)? [id number] [email or web address] Information not available 07/05/2021 Family History Relationship Description Onset Age of this Age Resolved Age Notes LastModified by Organization Details LastModified Time Father No current problems or disability [email or web address] Not available 05/2021 09:06:31 Mother No current problems or disability [email or web address] Not available 05/2021 09:06:31 Medical History Condition [...] ICD10 Code Diagnosis IMO Codes Diagnosis Note [id number] Shawn Bradley MD [place] [address] [address] 08/04/2025 14:02:59 08/04/2025 15:06:33 Gestational diabetes mellitus 11177944 O24.410 O43.103 O43.113 Z3A.34 34863796 [id number] [facility] [address],[place] [address] 08/04/2025 14:21:57 08/04/2025 15:26:03 Gestation period, 34 weeks 66621243 Z3A.34 8749678 Pruritic d isorder of skin 6080944070 L29.9 88028 plan labs today, ursadiol BID [id number] Anju Mcnamara [facility] [address] [place] [address] 08/11/2025 14:51:38 08/11/2025 17:16:44 Gestational diabetes mellitus 79400097 O24.414 29846295 [id number] [facility] [address] [place] [address] 08/11/2025 16:25:59 08/11/2025 17:46:32 Gestational diabetes mellitus 10000985 O24.414 02292326 [id number] Shawn Bradley MD [place] [address] [place] [address] 08/18/2025 09:40:51 08/18/2025 10:15:47 Gestational diabetes mellitus 01493274 O24.414 Z3A.36 14154634 [id number] [facility] [address] [place] [address] 08/18/2025 09:41:06 08/18/2025 11:24:04 Gestation period, 36 weeks 28086022 Z3A.36 3311624 cont pnv [id number] Anju Mcnamara CNM [place] [address],[place] [address] 08/18/2025 09:41:16 08/18/2025 16:17:31 Gestational diabetes mellitus class A2 65677668 O24.414 15533626 [id number] Shawn Bradley MD [place] [address],[place] [address] 08/25/2025 14:26:29 08/25/2025 15:14:02 Gestational diabetes mellitus 79537813 O24.414 87764470 [id number] Anju Mcnamara CNM [place] [address] [address] 08/25/2025 14:26:57 08/25/2025 15:53:52 Gestation period, 37 weeks 96002331 Z3A.37 2278001 continue vitamin [id number] Anju Mcnamara CNM [place] [address],[place] [address] 08/25/2025 16:48:00 08/25/2025 17:20:42 Gestational diabetes mellitus 92381832 O24.419 [id number] Health Concerns Section Related Observation LastModified by Organization Detai ls LastModified Time None Recorded Concern Status LastModified by Organization Details LastModified Time None Recorded Payers Encounter Date Sequence Insurance Name Policy Number Policy Roberts Covered Member ID Roberts Member ID Guarantor Name 08/25/2025 1 [facility] (MEDICAID HMO) [id number] Yuni Mejia [id number] Yuni Mejia Notes Date Note Type Note Provider Name and Address Organization Details Recorded Time 08/25/2025 text/html Generic HPI TemplateReported by Patient Anju Mcnamara CNM [address], [place], [address], [facility] 08/25/2025 15:51:24 OBGyn Episode Ob Episode Information Episode Created Date Number of Fetuses Patient Bloodtype Patient rh Status Prepregnancy Weight lbs Domestic Partner Domestic Partner Phone Father Name Compensation Consulting Manager Status 03/02/20 25 1 B Positive 164 CLOSED Fetus Data First Name Last Name Admitted to NICU Weight (g) Sex Living Outcome Pediatric Complications Fetus ID Race Codes Race Delivery Type Gladis false 4025.62 9 F true Full Term 48907 Vaginal Delivery Problems Problem Notes SDH form completed 5GI consult Tachycardia Holter monitor 72 order- pt sent back on 03-27-25 Cardiology referral faxed per Dr Martínez office calling pt 04/21 to schedule consult scheduled 05/11 11:15AM Problem Name Start Date End Date Resolution Snomed Code Not e Uncomplicated moderate persistent asthma 03/02/2025 335102729 albuterol prn Abnormal placenta affecting management of mother 05/04/2025 92207260 MCI serial grow th us Iron deficiency anemia 05/25/2025 [id number] [facility] MFM tx [place] 200mg x1 HGB 10.6 Nausea and vomiting 03/02/2025 12284702 Anxiety 03/02/2025 75323244 sertralin e started 03/02/25 changed to prozac 10 on Gestational diabetes mellitus 07/08/2025 93983886 checking bs QID - ruled in GDM Referral faxed to [facility] 07/07 Frequent headache 05/03/2025 905351332 [place] to [facility] 05/21, discharge 05/23 MF referral faxed 05/24 [facility] Neurology consult pending per KAJAL Pittman [facility]- Neuro M unable to see pt due to insurance 05/25[facility] 07/05/25 Level US & Consult (see [facility] consult zayas recommendations ) regimen prn Imitrex 50mg for acute migraine, vitamin B2 (Riboflavin) 400mg, Coenzyme q10 300mg and magnesium oxide 200 to 600mg daily. minimize use of Excedrin or Tylenol to no more than 2-3 times a week. 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 went to ed exam done cultures and rx sent, ?FM, await surveillance monitor results rfilled zofran, precautions and education [...] Type Weight in lbs Pre/Post Dialysis Refused 168.131016765481 BP Diastolic BP Location Tested BP Systolic [...] Type Weight in lbs Pre/Post Dialysis Refused 169.009154174932 BP Diastolic BP Location Tested BP Systolic [...] Weight in lbs Pre/Post Dialysis Refused Weight 175.816691023317 BP Diastolic BP Location Tested BP Systolic [...] Weight in lbs Pre/Post Dialysis Refused Weight 182.721752648936 BP Diastolic BP Location Tested BP Systolic [...] Weight in lbs Pre/Post Dialysis Refused Weight 181.885178941626 BP Diastolic BP Location Tested BP Systolic BP Type 73 L arm 131 sitting Fetus Heart Rate Present Fetus Movement A Yes Comments viral URI testied neg at urg ent care, nausea resolved, efw 68%, +FM plan education and precautions f/u 2 weeks diagnosed GDM, plan junior bookkeeper, gave list reviewed protein vs carb Flowsheet Date 07/21/2025 Gibson Score Blood Edema Fundus Height Fundus Units Glucose Ketones Leukocytes Nitrite Labor Signs Protein Cervic Dilation Cervic Effacement Cervic Station Type Weight in lbs Pre/Post Dialysis Refused Weight 181.863433661306 BP Diastolic BP Location Tested BP Systolic BP Type 78 L arm 127 sitting Fetus Heart Rate Present A 150 Fetus Movement A Yes Comments rpt urine culture +FM review ed blood sugars, meets with junior bookkeeper today, precautions and education f/u 2 weeks [...] Weight in lbs Pre/Post Dialysis Refused Weight 181.088115866703 BP Diastolic BP Location Tested BP Systolic [...] Weight in lbs Pre/Post Dialysis Refused Weight 183.119928663874 BP Diastolic BP Location Tested BP Systolic [...] Type Weight in lbs Pre/Post Dialysis Refused 184.025004882276 BP Diastolic BP Location Tested BP Systolic [...] Type Weight in lbs Pre/Post Dialysis Refused 184.335141902492 BP Diastolic BP Location Tested BP Systolic [...] Type Weight in lbs Pre/Post Dialysis Refused 184.403817725955 BP Diastolic BP Location Tested BP Systolic [...] Weight in lbs Pre/Post Dialysis Refused Weight 184.419243873598 BP Diastolic BP Location Tested BP Systolic [...] Weight in lbs Pre/Post Dialysis Refused Weight 164.939457104363 BP Diastolic BP Location Tested BP Systolic [...]
--- OUTSIDE RECORDS SUMMARY | 2025-09-16 17:57 | XMS_ITS | Data Portability ---
Author Organization [facility], [facility] Address [address] [place] [address] [place] [address] Care Team Providers Care Kick Press Setter Name Role Phone CARLOS ESTRADA Primary Care Provider [phone] Assessment No assessment recorded. Plan of Treatment Reminders Order Date Submit Date Provider Last Modified By Organization Details Last Modified Time Details Appointments None recorded. Lab None recorded. Referral None recorded. Procedures None recorded. Surgeries None recorded. Imaging US, obstetric, biophysical profile + non-stress test 2024 [facility], [address], [place], [address], 18:52:06 Medication Orders sertraline 100 mg tablet 2024 025 [facility] [address] [place], [address], 13:06:11 lamotrigine 25 mg tablet 2024 025 [facility] [address] [place], [address], 13:06:10 Patient TargetsNo targets recorded. Patient InstructionsNo instructions recorded. Reason for Referral None Reported. Results Created Date Observation Date Name Description Value Unit Range Abnormal Flag Note LastModifiedBy Organization Detail LastModifiedTime 08/04/2008/04/2025 CMP(C OMPRE HENSI VE METAB OLIC PANEL ) sodium 138 mmol/ L 133-14 6 Not Available [facility] (Lab) [address], [place], [address], 08/05/2025 13:39:18 08/04/20 25 08/04/2025 CMP(C OMPRE HENSI VE METAB OLIC PANEL ) potassium 4.0 mmol/ L 3.5-5. 1 Not Available [facility] (Lab) [address], [place], [address], 08/05/2025 13:39:18 08/04/20 25 08/04/2025 CMP(C OMPRE HENSI VE METAB OLIC PANEL ) chloride 105 mmol/ L 98-107 Not Available [facility] (Lab) [address], [place], [address], 08/05/2025 13:39:18 08/04/20 25 08/04/2025 CMP(C OMPRE HENSI VE METAB OLIC PANEL ) carbon dioxide 25 mmol/ L 21-31 Not Available [facility] (Lab) [address], [place], [address], 08/05/2025 13:39:18 08/04/20 25 08/04/2025 CMP(C OMPRE HENSI VE METAB OLIC PANEL ) anion gap 8 mmol/ L 4-13 Not Available [facility] (Lab) [address], [place], [address], 08/05/2025 13:39:18 08/04/20 25 08/04/2025 CMP(C OMPRE HENSI VE METAB OLIC PANEL ) blood urea nitrogen 10 mg/dL 7-25 Not Available [facility] (Lab) [address], [place], [address], 08/05/2025 13:39:18 08/04/20 25 08/04/2025 CMP(C OMPRE HENSI VE METAB OLIC PANEL ) creatinine 0.41 mg/dL 0.60-1 .30 low Not Available [facility] (Lab) [address], [place], [address], 08/05/2025 13:39:18 08/04/20 25 08/04/2025 CMP(C OMPRE HENSI VE METAB OLIC PANEL ) egfrcr (CKD-epi 2020) >90 mL/mi n/1.7 3_m2 >=60 Not Available [facility] (Lab) [address], [place], [address], 08/05/2025 13:39:18 08/04/20 25 08/04/2025 CMP(C OMPRE HENSI VE METAB OLIC PANEL ) calcium 8.9 mg/dL 8.3-10 .5 Not Available [facility] (Lab) [address], [place], [address], 08/05/2025 13:39:18 08/04/20 25 08/04/2025 CMP(C OMPRE HENSI VE METAB OLIC PANEL ) glucose 116 mg/dL 70-100 high Not Available [facility] (Lab) [address], [place], [address], 08/05/2025 13:39:18 08/04/20 25 08/04/2025 CMP(C OMPRE HENSI VE METAB OLIC PANEL ) protein, total 6.1 g/dL 6.4-8. 3 low Not Available [facility] (Lab) [address], [place], [address], 08/05/2025 13:39:18 08/04/20 25 08/04/2025 CMP(C OMPRE HENSI VE METAB OLIC PANEL ) albumin 3.5 g/dL 3.5-5. 0 Not Available [facility] (Lab) [address], [place], [address], 08/05/2025 13:39:18 08/04/20 25 08/04/2025 CMP(C OMPRE HENSI VE METAB OLIC PANEL ) ALT 11 units /L 9-43 Not Available [facility] (Lab) [address], [place], [address], 08/05/2025 13:39:18 08/04/20 25 08/04/2025 CMP(C OMPRE HENSI VE METAB OLIC PANEL ) alkaline phosphatase 98 units /L 34-104 Not Available [facility] (Lab) [address], [place], [address], 08/05/2025 13:39:18 08/04/20 25 08/04/2025 CMP(C OMPRE HENSI VE METAB OLIC PANEL ) AST 15 units /L 13-39 Not Available [facility] (Lab) [address], [place], [address], 08/05/2025 13:39:18 08/04/20 25 08/04/2025 CMP(C OMPRE HENSI VE METAB OLIC PANEL ) bilirubin, total 0.3 mg/dL 0.2-1. 2 Not Available [facility] (Lab) [address], [place], [address], 08/05/2025 13:39:18 08/04/20 25 08/04/2025 BILE ACIDS , TOTAL bile acids, total 4 umol/ L 0-10 Test Perfo rmed by: [facility] [address] [address] Not Available [facility] (Lab) [address], [place], [address], 08/05/2025 13:39:19 08/04/20 25 08/04/2025 US, roxy tric follo w-up No observ ation record ed. [email or web address] [facility] [address], [place], [address], 08/04/2025 15:08:50 08/04/20 25 08/04/2025 US, obste tric, follo w-up No observ ation record ed. [email or web address] [facility] [address], [place], [address], 08/06/2025 10:41:50 08/11/2008/11/2025 non-s tress test No observ ation record ed. [email or web address] [facility] [address], [place], [address], 08/11/2025 17:37:52 08/11/20 non-s tress test No observ ation record ed. [email or web address] [facility] [address], [place], [address], 08/11/2025 17:38:11 08/15/2008/15/2025 non-s tress test No observ ation record ed. [address] [facility], [place], [address], 08/21/2025 10:18:57 08/15/2008/15/2025 US, obste tric, bioph ysica l profi le No observ ation record ed. [address] [facility], [place], [address], 08/17/2025 10:50:53 08/18/2008/18/2025 US, obste tric, bioph ysica l profi le + non-s tress test No observ ation record ed. [email or web address] [facility] [address], [place], [address], 08/18/2025 10:21:39 08/18/2008/18/2025 US, obste tric, bioph ysica l profi le + non-s tress test No observ ation record ed. [email or web address] E[facility] [address], [place], [address], 08/18/2025 10:35:44 08/18/2008/18/2025 non-s tress test No observ ation record ed. [email or web address] [facility] [address], [place], [address], 08/18/2025 17:34:03 08/18/20 non-s tress test No observ ation record ed. [address], [place], [address], 08/18/2025 16:06:09 08/25/20 25 08/25/2025 US, obste tric, bioph ysica l profi le + non-s tress test No observ ation record ed. [email or web address] [facility] [address], [place], [address], 08/25/2025 18:52:06 08/25/2008/25/2025 US, obste tric, follo w-up No observ ation record ed. [email or web address] Esha [address], [place], [address], 08/25/2025 15:47:28 08/25/20 25 08/25/2025 non-s tress test No observ ation record ed. [email or web address], [place], [address], 08/25/2025 18:12:15 08/25/20 non-s tress test No observ ation record ed. [address], [place], [address], 08/25/2025 17:21:19 08/30/20 25 08/30/2025 non-s tress test No observ ation record ed. [address] [facility] [address], [place], [address], 09/15/2025 15:26:49 09/01/20 25 09/01/2025 non-s tress test No observ ation record ed. [facility] [address] [facility] [address], [place], [address], 09/13/2025 11:32:22 09/01/20 25 09/01/2025 US, obste tric No observ ation record ed. [address], [place], [address], 09/02/2025 15:56:01 09/01/20 25 09/01/2025 non-s tress test No observ ation record ed. [place] [id number] [facility] [address], [place], [address], 09/02/2025 14:32:38 09/16/20 25 09/16/2025 imagi ng/di agnos tic resul t No observ ation record ed. [place] [id number] [facility] [address], [place], [address], 09/16/2025 18:07:05 Result Notes None recorded. Problems Name Problem SNOMED Code Status Onset Date Resolution Date Notes Provider Name and Address Organization Details Recorded Time Hypereme sis 108423800 Completed phenerga n now prn Asia arias [facility] 2 16:43:51 Anxiety in pregnanc y 2684360670 9109 Completed will continue to monitor Asia arias [facility] 2 16:43:51 Past pregnanc y history of gestatio nal diabetes mellitus 006092694 Completed Early 1 hr GTT @ 20wks 11/03 APPT Asia arias [facility] 2 16:43:51 Spinal muscular atrophy 5323533 Completed Carrier - Not in contact with FOB. Asia arias [facility] 2 16:43:51 Anxiety 08990149 Completed prozac Karina Burroughs [facility], [facility] 4 11:00:46 Nausea 148003816 Completed d/c zofran pump 11/08 per pt request Karina Burroughs null, [facility] 4 11:00:46 Postpart um hemorrha ge 56603657 Completed 2017 with d&c Karina ramos, [facility] 4 11:00:46 Normal pregnanc y in multigra jessy 4577712851 83684 Completed 201907/05/2021 Encounte r for supervis ion of other normal pregnanc y, 3rd trimeste r;Record ed Elsewher e: No Locat ion: [facility] S ource: EHR Box Maker Paperboard yvrose: N Practi ce ID: [id number] Gigi lable Time: 10:45:00 AM Karina ramos [facility] 10:15:27 Gestatio n period, 37 weeks 78290779 Completed 201907/05/2021 37 weeks gestatio n of pregnanc y;Record ed Elsewher e: No Locat ion: [facility] S ource: EHR [employer] yvrose: N Practi ce ID: [id number] Gigi lable Time: 09:00:00 AM Karina ramos [facility] 10:15:[address] Concept Completed 201907/05/2021 Matern care for abnlt fetl hrt rate or rhym, 3rd tri, unsp;Rec orded Elsewher e: No Locat ion: [facility] S ource: EHR Box [employer] yvrose: N Practi ce ID: [id number] Gigi lable Time: 08:45:00 AM Karina ramos [facility] 10:15:29 Gestatio nal diabetes mellitus 03337806 Completed 201907/05/2021 Gestatio nal diabetes mellitus in pregnanc y, diet controll ed;Recor ded Elsewher e: No Locat ion: [facility] S ource: EHR Box Maker [employer] yvrose: N Practi ce ID: [id number] Gigi lable Time: 11:45:00 AM Karina ramos [facility] 10:15:25 Gestatio n period, 38 weeks 32889779 Completed 201907/05/2021 38 weeks gestatio n of pregnanc y;Record ed Elsewher e: No Locat ion: Jaelyn castillo [facility] S ource: EHR Box Maker Paperboard yvrose: N Practi ce ID: [id number] Gigi lable Time: 11:30:00 AM Karina Burroughs null, [facility] 10:15:13 Amenorrh ea 83023673 Completed 202007/10/2021 Tammi Jones null, [facility] 13:08:35 Pregnanc y 45128398 Completed 202003/29/[address] [facility], [facility] 5 12:28:48 Pregnanc y 19487347 Completed 202304/22/2024 Emma Dykes null, [facility] 5 12:28:48 Headache 94807942 Active 2023 Karina Burroughs null, [facility] 5 16:19:28 Pregnanc y 09585869 Completed 202309/14/2025 Emma Dykes null, [facility] 5 12:28:48 Uncompli cated moderate persiste nt asthma 887988549 Completed 2024 albutero l prn Shawn Bradley MD [address], [place], [address], [facility] 5 13:08:36 Anxiety 56159185 Completed 2024 sertrali ne started 03/02/25 changed to prozac 10 on Shawn Bradley MD [address], [place], [address], [facility] 5 17:05:48 Nausea and vomiting 91169009 Completed 2024 Shawn Bradley MD [address], [place], [address], [facility] 5 13:20:27 Placenta circumva llata 2727575 Completed 2024 32wk [facility] 09:44:35 Frequent headache 042706340 Completed 2024 transpor t to [facility] 05/21, discharg e 05/23 [facility] referral faxed 05/24 [facility] pending per KAJAL Pittman [facility]- Neuro [facility] unable to see [...] Ryann ramos [facility] 5 10:55:26 Abnormal placenta affectin g manageme nt of mother 21198411 Completed 2024 MCI serial growth Ryann ramos [facility] 5 10:46:25 Iron deficien cy anemia 84111307 Completed 2024 SS MFM tx venofer 200mg x1 HGB 10.6 Ryann ramos [facility] 5 15:21:25 Gestatio nal diabetes mellitus 76600764 Completed 2024 checking bs QID - ruled in GDM Referral faxed to [facility] 07/07 Ryann Green [facility] 14:36:52 Notes:Order faxed to [facility] access 08/10 for PICC line, and home health already caring for ptHilda Gilbert RN at [phone] Problem Notes None recorded. Procedures Surgical History Date Name Laterality Status Provider Name and Address Organization Details Recorded Time 025 SALPINGECTOMY, LAPAROSCOPIC (SURG) completed Not Available [facility] 09/06/2025 11:19:17 025 Date of Last Pap Smear completed Karina Burroughs [facility] 01/28/2025 11:19:42 024 Nexplanon Removal completed Shawn Bradley MD [address], [place], [address], [facility] 08/05/2024 15:09:58 024 Control Implant Insertion completed Anju Mcnamara CNM [address], [place], [address], [facility] 05/08/2024 17:59:34 024 cholecystectomy completed Karina Burroughs [facility] 03/31/2025 09:18:57 018 Dilation and Curettage completed Karina Burroughs [facility] 07/05/2021 10:17:50 Imaging Results None recorded. Procedure Notes None recorded. Medical Equipment None Reported. Allergies Allergen ID Allergen Name Allergen Category Reaction Reaction Severity Criticality Documentation Date Start Date Code Code System Note Provider Name and Address Organization Details Recorded Time 08983 terbutali ne medicatio n anaphylax is Not available Not available 01/27/20252021 10654 RxNorm Karina Burroughs [facility] 16:19:27 29820 amoxicill in medicatio n Not available Not available Not available 09/10/2025 723 RxNorm Not Available gene - External Data Service - prod 16:39:37 93132 terbinafi ne medicatio n anaphylax is Not available high 09/10/20252024 88840 RxNorm Not Available [place] - External Data Service - prod 16:40:54 [...] Loca tion: [facility] odify By: prabhjot Lee r DateTime : [...] n (supplie d by office) insert lot [id number] Exp 01/2026 Not Available Not Available Not Available 28 mg iron-800 mcg tablet 07/05 completed Prescrib ed Elsewher e: Yes Loca tion: [facility] odify By: prabhjot Lee r DateTime : 01/14/20 10:45:00 AM Not Available Not Available Not Available lidocaine 5 % topical ointment APPLY OINTMENT EXTERNAL LY TO RIBS THREE TIMES DAILY NEEDED 01/14 completed Not Available Not Available Not Available TERRITORY MANAGER-PNV-DH A 28 mg iron-1 mg-200 mg [...] Address Organization Details Last Updated DateTime 08/25/2025 97534.11768 g 108/72 mm[Hg] Melyssa Santo [facility] 08/25/2025 15:41:08 Date Recorded Body height Body mass index (BMI) Body weight Systolic And Diastolic Provider Name and Address Organization Details Last Updated DateTime 08/25/2025 162.56 cm 31.6 kg/m2 64120 g 108/72 mm[Hg] Emma Dykes [facility] 08/25/2025 17:18:37 Date Recorded Body height Body mass index (BMI) Body weight Systolic And Diastolic Systolic And Diastolic Provider Name and Address Organization Details Last Updated DateTime 09/14/2025 162.56 cm 28.2 kg/m2 25930.15 g 153/91 mm[Hg] 142/79 mm[Hg] Emma Elkinsfredi [facility] 12:29:23 Social History Question Answer Notes LastModified by Organizat ion Details LastModified Time Tobacco Smoking Status Former Smoker Karina Burroughs rachel, [facility] 07/05/2021 09:06:21 If You Are , What Was Your Level Of Alcohol Consumption Prior To ? Occasional [email or web address] Information not available 03/31/2025 Are You Blind Or Do You Have Difficulty Seeing? No [email or web address] Information not available 07/05/2021 What Is Your Level Of Caffeine Consumption? Heavy [email or web address] Information not available 07/05/2021 In The 14 Days Before Symptom Onset, Have You Had Close Contact With A Laboratory-confir med COVID-19 While That Case Was Ill? No [email or web address] Information not available 07/05/2021 In The 14 Days Before Symptom Onset, Have You Had Close Contact With A Person Who Is Under Investigation For COVID-19 While That Person Was Ill? No [email or web address] Information not available 07/05/2021 Have You Been To An Area Known To Be High Risk For COVID-19? No Information not available 07/05/2021 Are You Deaf Or Do You Have Serious Difficulty Hearing? No Information not available 07/05/2021 What Type Of Diet Are You Following? REGULAR [email or web address] Information not available 07/05/2021 Which Illicit Or Recreational Drugs Have You Used? Marijuana [email or web address] Information not available 07/05/2021 Have You Ever Been Counseled For Unhealthy Alcohol Use? No Information not available 07/05/2021 Do You Use Your Seat Belt Or Car Seat Routinely? Yes Information not available 07/05/2021 Do You Have Smoke And Carbon Monoxide Detectors In Your Home? Yes [email or web address] Information not available 07/05/2021 Do You Use Sunscreen Routinely? Yes [email or web address] Information not available 07/05/2021 Has Tobacco Cessation Counseling Been Provided? No [email or web address] Information not available 07/05/2021 Have You Used IV Drugs? No [email or web address] Information not available 07/05/2021 Do You Have Difficulty Walking Or Climbing Stairs? No Information not available 12/06/2021 Sex: Unknown Functional Status Question Answer Note LastModified by Organizat ion Details LastModified Time Do you use any illicit or recreational drugs? Yes Information not available 07/05/2021 Do you or have you ever used any other forms of tobacco or nicotine? Yes [email or web address] Information not available 07/05/2021 What is your level of alcohol consumption? None [email or web address] Information not available 03/31/2025 Do you or have you ever used smokeless tobacco? Never used smokeless tobacco Information not available 07/05/2021 Are you able to walk independently without assistance or assistive devices? [email or web address] Information not available 07/05/2021 Are you able to care for yourself independently? Yes [email or web address] Information not available 12/06/2021 Do you have difficulty dressing, bathing, grooming, or toileting? No [email or web address] Information not available 12/06/2021 Do you or have you ever used e-cigarettes or vape? Current user of electronic cigarettes [email or web address] Information not available 07/05/2021 What is your exercise level? Occasional [email or web address] Information not available 07/05/2021 Mental Status Question Answer Note LastModified by Organization D etails LastModified Time Do you feel stressed (tense, restless, nervous, or anxious, or unable to sleep at night)? [id number] [email or web address] Information not available 07/05/2021 Family History Relationship Description Onset Age of this Age Resolved Age Notes LastModified by Organization Details LastModified Time Father No current problems or disability [email or web address] Not available 05/2021 09:06:31 Mother No current problems or disability [email or web address] Not available 05/2021 09:06:31 Medical History Condition [...] ICD10 Code Diagnosis IMO Codes Diagnosis Note [id number] Anju Mcnamara CNM [facility] [address] [address] 07/05/2021 09:58:05 07/05/2021 11:16:35 Pityriasis versicolor 44269353 B36.0 also wash with selsum blue shampoo Vaginitis 17888848 N76.0 Nausea 937682639 R11.0 Contracept ion care management 165793395 Z30.9 [id number] Betsey Joya CNM [facility] [address] [address] 08/02/2021 10:30:44 08/04/2021 10:07:43 Severe hyperemesis gravidarum 263897762 O21.1 Pt has not held anything down for more than 24 hours. Sent to ER for hydration and evaluation . We have discussed dietary precaution s. Recommend very small frequent meals. Avoid greasy, spicy or trigger foods. I do believe she may benefit from home health for fluids and IV antiemetic s. 31906 Anju Mcnamara [facility] [address] [address] 08/08/2021 10:22:11 08/08/2021 13:42:05 Depressive disorder 18541374 F32.A in an emergency [facility] info given and kettler reminder, if increased thoughts or plan to hospital for immediate care, pt agrees, continue counseling , will try lexapro once can keep down fluids, se reviewed Gynecologi c examination 03582968 Z01.419 Z11.3 Z11.8 Amenorrhea 61525225 N91. 2 plan NOB and first look Nausea and vomiting 1693 2000 R11.2 unable to leave urine, unable at this time to go to LD, encouraged to go to LD for hydration, working on home health services, [address] Shawn Bradley MD [facility] [address] [address] 08/08/2021 10:21:08 08/08/2021 10:53:33 Routine care 646137430 Z34.91 Z3A.08 53068 Anju Mcnamara [facility] [address],[place] [address] 09/13/2021 14:51:52 09/14/2021 13:44:23 test positive 774172488 Z32.01 Routine an tenatal care 000958260 Z34.91 [id number] Shawn Bradley MD [facility] [address] [address] 09/13/2021 15:35:32 09/13/2021 16:26:27 screening 066528301 Z36.82 56334 Betsey Joya [facility] [address] [address] 10/09/2021 12:26:15 10/09/2021 17:39:00 Urinary symptoms 219813111 R39.9 Fatigue 18557137 R53.83 Venereal d isease screening 986350202 Z11.3 04855 Anju Mcnamara [facility] [address] [address] 10/16/2021 11:57:23 10/16/2021 12:48:11 Routine care 740358517 Z34.91 [id number] Anju Mcnamara [facility] [address] [address] 11/03/2021 11:32:21 11/03/2021 13:52:13 Routine care 968476154 Z34.91 53735 Shawn Bradley MD [facility] [address] [address] 11/03/2021 11:31:37 11/03/2021 12:34:34 screening for malformation 710436342 Z36.3 98552 Anju Mcnamara [facility] [address] [address] 12/06/2021 14:46:58 12/06/2021 16:07:59 Routine care 078156304 Z34.91 Iron defic iency anemia 90307194 D50.9 Anxiety 12372705 F41.9 60506 Shawn Bradley MD [facility] [address] [address] 12/06/2021 14:46:10 12/06/2021 15:18:30 condition affecting obstetrical care of mother 886178049 O35.8XX0 Z3A.25 02749 Anju Mcnamara [facility] [address] [address] 12/22/2021 11:04:34 12/22/2021 11:32:13 Routine care 294665887 Z34.91 [id number] Shawn Bradley MD [facility] [address] [place] [address] 01/03/2022 14:21:04 01/03/2022 15:48:26 Uterine size for dates discrepancy 937775428 O26.843 Z3A.29 02346 Anju Mcnamara [facility] [address],[place] [address] 01/03/2022 14:21:33 01/03/2022 15:13:41 Routine care 101578444 Z34.91 96956 Anju [facility] [address],[place] [address] 01/17/2022 16:53:11 01/17/2022 17:24:14 Routine care 375822487 Z34.91 Persistent cough 2716286 02 R05.3 [id number] Betsey Joya [facility] [address],[place] [address] 02/06/2022 09:22:49 02/06/2022 09:55:25 Routine care 744547137 Z34.93 [id number] Shawn Bradley MD [facility] [address],[place] [address] 02/13/2022 14:43:16 02/13/2022 15:26:49 Poor growth affecting management 411074546 O36.5930 Z3A.35 96001 Anju [facility] [address],[place] [address] 1 02/16/2022 15:13:14 02/16/2022 15:58:27 Routine care 521436272 Z34.91 [id number] Anju [facility] [address],[place] [address] 03/02/2022 15:02:03 03/02/2022 15:28:58 Routine care 866289041 Z34.91 [id number] BOLA Miller [facility] [address],[place] [address] 1 03/27/2022 10:37:37 03/27/2022 11:14:18 Mixed anxiety and depressive disorder 392115707 F41.8 Chest pain 17434664 R07. 9 She has a hx of [...] treatment for anxiety/de pression.Bianca peng has a oil transport driver that will take her to [place] ED (vitals are WNL, no acute distress noted).She has no thoughts of harming herself or others.She will call the office to schedule an appointmen t to be seen after ED evaluation . We discussed at that time can start therapy for depression /anxiety. RTC after cleared by ED Time spent with the patient was 20 minutes [id number] Shawn Bradley MD [facility] [address],[facility] [address] 04/16/2022 15:11:58 04/16/2022 17:11:09 Mixed anxiety and depressive disorder 802602553 F41.8 this patient is a 22-year-ol d [...] ce. More than 50% was counseling . [id number] Shawn Bradley MD [place] [address],[place] [address] 1 04/16/2022 16:43:28 04/16/2022 17:34:26 Abnormal uterine bleeding 5297767694 9100 N93.9 [id number] BOLA Miller [place] [address],[place] [address] 1 06/19/2022 17:24:32 06/19/2022 18:03:44 Abnormal uterine bleeding 2544210029 9100 N93.9 We discussed likely spotting is [...] of plan of care. Pain in pelvis 54840568 R10.2 Contracept ion care management 026905679 Z30.9 Irregular periods 323575 07 N92.6 Venereal d isease screening 531087044 Z11.3 Anxiety 33278424 F41.9 [id number] Shawn Bradley MD [facility] [address],[place] [address] 10/02/2023 13:44:25 10/02/2023 14:07:54 screening 095405724 Z36.82 Z36.87 Z3A.11 [id number] Anju Mcnamara CNM [place] [address],[place] [address] 10/02/2023 13:46:45 10/02/2023 14:50:25 Amenorrhea 68253965 N91.2 plan NOB and first look NIPT and labs todaywants tubal ligation after delivery Gynecologi c examination 45957903 Z01.419 Z11.3 Z11.8 Nausea and vomiting 1693 2000 R11.2 [id number] Anju [facility] [address],[place] [address] 11/01/2023 11:17:59 11/01/2023 13:01:44 Gestation period, 16 weeks 14231633 Z3A.16 Anxiety 96264652 F41.9 [id number] Shawn Bradley MD [place] [address],[place] [address] 1 11/27/2023 14:04:37 11/27/2023 15:16:15 screening for malformation 519233352 Z36.3 Z3A.19 [id number] Anju [facility] [address],[place] [address] 11/27/2023 14:13:33 11/27/2023 15:31:00 Routine care 438152742 Z34.91 [id number] Anju [facility] [address],[place] [address] 1 12/25/2023 14:51:56 12/25/2023 15:52:45 Routine care 511295981 Z34.91 [id number] [facility] [address],[place] [address] 02/14/2024 14:13:14 02/14/2024 16:07:12 Routine care 380027563 Z34.91 [id number] [facility] [address],[place] [address] 1 03/27/2024 11:47:21 03/27/2024 12:30:07 Routine care 149387105 Z34.91 [id number] [facility] [address],[place] [address] 05/08/2024 14:54:41 05/11/2024 09:00:41 Screening procedure 26458764 Z13.9 Implantati on of subcutaneous contraceptive 296274738 Z30.46 reviewed se risks and benefits, bandage until skin closes, pressure bandage x 24 hourswill schedule bilateral salpingect kateryna with dr. bradley care 91025408 8 Z39.2 continue multivitam in Sterilizat ion requested 964849300 Z30.2 740602 Shawn Bradley MD [facility] [address],[place] [address] 08/05/2024 13:57:53 08/05/2024 15:11:54 Contraception care management 982925737 Z30.9 Nexplanon removed without complicati ons. She tolerated well. [id number] MD Shun Galarza [address],[place] [address] 01/14/2025 11:51:17 01/14/2025 12:53:24 Uncertain viability of 879460590 Z3A.01 [id number] Shawn Bradley MD [facility] [address],[place] [address] 01/14/2025 11:51:38 01/15/2025 09:38:25 Pain in pelvis 51231559 R10.2 25-year-ol d female presents for ER [...] care. She will return in 2 weeks. [id number] MD Shun Galarza [address],[place] [address] 1 01/27/2025 14:42:15 01/27/2025 15:35:58 Abdominal pain in 121570176 O99.891 Z3A.01 [id number] Shawn Bradley MD [facility] [address],[place] [address] 01/27/2025 14:55:24 01/27/2025 16:41:41 Amenorrhea 12313955 N91.2 Z32.01 this patient is a 25-year-ol [...] begin routine care at her next visit. [id number] Shawn Bradley MD [facility] [address],[place] [address] 02/04/2025 10:09:23 02/04/2025 10:48:21 Headache 19621068 R51.9 Nausea and vomiting 1693 2000 R11.2 [...] to labor and delivery for IV fluids. [id number] MD Shun Galarza [address],[place] [address] 03/02/2025 12:17:19 03/02/2025 12:53:50 screening 083789897 Z36.82 Z3A.11 8913176819 [id number] MD Shun Galarza [address],[place] [address] 03/02/2025 12:17:40 03/02/2025 15:40:54 Anxiety 22206218 F41.9 91474 care status 24 6953838 Z34.81 67737865 [id number] Shawn Bradley MD [facility] [address],[place] [address] 03/08/2025 10:47:16 03/08/2025 11:13:32 Complication occurring during 172425332 O99.891 Z3A.13 4088312184 [id number] Shawn Bradley MD [facility] [address],[place] [address] 1 03/12/2025 15:59:57 03/13/2025 11:16:32 Urinary symptoms 600812765 R39.9 69019 Anxiety 24537719 F41.9 22978 Headache 66830201 R51.9 G89.29 688374852 [id number] Anju [facility] [address],[place] [address] 1 03/31/2025 08:58:49 03/31/2025 12:05:58 Urinary symptoms 198334059 R39.9 14542 Yeast detected 668255663 B37.9 7525237438 Nausea 294438525 R11.0 33671 [id number] Shawn Bradley MD [facility] [address],[place] [address] 1 04/20/2025 16:29:09 04/20/2025 17:09:27 Uncertain viability of 297464207 O36.80X1 Z3A.19 0320716 [id number] Shawn Bradley MD [facility] [address],[place] [address] 04/22/2025 09:24:41 04/26/2025 09:10:43 Acute back pain with sciatica 067309805 M54.40 11702563 Migraine w [facility] aura, not refractory 733769561 G43.323 7346598 care status 24 5722018 Z34.82 38147362 [id number] Shawn Bradley MD [place] [address] [place] [address] 1 04/28/2025 13:46:05 04/28/2025 15:08:40 Ultrasound scan - obstetric 205278660 Z36.3 Z3A.20 98667 [id number] [facility] [address],[place] [address] 04/28/2025 13:46:26 04/28/2025 15:22:57 Gestation period, 20 weeks 79236093 Z3A.20 7964262 [id number] Shawn Bradley MD [facility] [address],[place] [address] 1 05/28/2025 13:46:14 05/28/2025 14:40:01 Abnormal placenta affecting management of mother 43237468 O43.192 Z3A.24 88534145 [id number] [facility] [address],[place] [address] 05/28/2025 13:46:33 05/28/2025 15:52:47 Gestation period, 24 weeks 830219881 Z3A.24 7521094 cont pnv [id number] Shawn Bradley MD [facility] [address],[place] [address] 1 06/23/2025 13:43:13 06/25/2025 17:52:18 [id number] [facility] [address],[place] [address] 06/23/2025 13:43:28 06/23/2025 15:58:03 Heartburn 77099835 R12 22457 Gestation period, 28 weeks 00011958 Z3A.28 2840901 [id number] Shawn Bradley MD [facility] [address],[place] [address] 07/07/2025 10:14:22 07/07/2025 11:00:23 Anomaly of placenta 28266190 O43.103 Z3A.30 9040543 [id number] [facility] [address],[place] [address] 1 07/07/2025 10:14:33 07/07/2025 11:38:54 Gestation period, 30 weeks 38925102 Z3A.30 6131668 cont pnv Nausea 044637558 R11.0 72603 Gestationa l diabetes mellitus 87747518 O24.419 92467633 [id number] Anju Mcnamara CNM [facility] [address],[place] [address] 07/21/2025 09:28:54 07/21/2025 12:36:06 Pain in pelvis 37803012 R10.2 755511 Gestation period, 32 weeks 4749232 Z3A.32 5233702 [id number] Shawn Bradley MD [facility] [address] [place] [address] 08/04/2025 14:02:59 08/04/2025 15:06:33 Gestational diabetes mellitus 31102817 O24.410 O43.103 O43.113 Z3A.34 88094238 [id number] Anju [facility] [address],[place] [address] 08/04/2025 14:21:57 08/04/2025 15:26:03 Gestation period, 34 weeks 07270757 Z3A.34 6196479 Pruritic d isorder of skin 6249793892 L29.9 64501 plan labs today, ursadiol BID [id number] [facility] [address] [place] [address] 08/11/2025 14:51:38 08/11/2025 17:16:44 Gestational diabetes mellitus 35878468 O24.414 08845057 [id number] [facility] [address] [place] [address] 08/11/2025 16:25:59 08/11/2025 17:46:32 Gestational diabetes mellitus 00271693 O24.414 22056774 [id number] Shawn Bradley MD [place] [address] [place] [address] 1 08/18/2025 09:40:51 08/18/2025 10:15:47 Gestational diabetes mellitus 94177433 O24.414 Z3A.36 61369532 [id number] [facility] [address] [place] [address] 08/18/2025 09:41:06 08/18/2025 11:24:04 Gestation period, 36 weeks 98040255 Z3A.36 8640976 cont pnv [id number] Anju Mc[facility] [address],[place] [address] 08/18/2025 09:41:16 08/18/2025 16:17:31 Gestational diabetes mellitus class A2 00267588 O24.414 45322311 [id number] Shawn Bradley MD [facility] [address],[place] [address] 08/25/2025 14:26:29 08/25/2025 15:14:02 Gestational diabetes mellitus 37807323 O24.414 32709759 128757 Anju Mcnamara [place] [address] [place] [address] 1 08/25/2025 14:26:57 08/25/2025 15:53:52 Gestation period, 37 weeks 02228377 Z3A.37 1214767 continue vitamin [id number] Anju Mcnamara [place] [address] [place] [address] 08/25/2025 16:48:00 08/25/2025 17:20:42 Gestational diabetes mellitus 52186438 O24.419 88260755 [id number] Shawn Bradley MD [facility] [address],[place] [address] 09/13/2025 15:30:32 09/13/2025 20:43:16 [id number] Shawn Bradley MD [place] [address] [place] [address] 09/14/2025 12:04:57 09/15/2025 08:16:47 Anxiety 95705769 F41.9 55955 this patient presents for severe anxiety. She [...] Roberts Member ID Guarantor Name 09/10/2025 1 [facility] (MEDICAID HMO) [id number] Yuni Mejia [id number] Yuni Mejia Notes Date Note Type Note Provider Name and Address Organization Details Recorded Time 08/25/2025 text/html Generic HPI TemplateReported by Patient Anju CastilloHilda Mcnamara CNM [address], [place], [address], [facility] 08/25/2025 15:51:24 09/14/2025 text/html this patient presents for severe [...] instructions. Shawn Bradley MD [address], [place], [address], [facility] 09/14/2025 20:12:48 OBGyn Episode Ob Episode Information Episode Created Date Number of Fetuses Patient Bloodtype Patient rh Status Prepregnancy Weight lbs Domestic Partner Domestic Partner Phone Father Name Revenue Investigator Status 03/14/20 20 1 CLOSED Fetus Data [...] Domestic Partner Domestic Partner Phone Father Name Revenue Investigator Status 07/05/20 21 1 CLOSED Fetus Data First Name Last Name Admitted to NICU Weight (g) Sex Living Outcome Pediatric Complications Fetus ID Race Codes Race Delivery Type , Spontane ous 14689 Jun Calculation Initial Jun Date Initial Exam [...] Domestic Partner Domestic Partner Phone Father Name Revenue Investigator Status 09/13/20 21 1 B Positive 103 diontre silva CLOSED Fetus Data First Name Last Name Admitted to NICU Weight (g) Sex Living Outcome Pediatric Complications Fetus ID Race Codes Race Delivery Type 3316.89 15 F true Full Term terminal meconium 55365 Vaginal Delivery Problems Problem Notes EIF in [place] noted5/9 PIH WNL, UC WNL Problem Name Start Date End Date Resolution Snomed Code Not e Spinal muscular atrophy 1201450 Carrier - Not i n contact with FOB. Past history of gestational diabetes mellitus 491543596 Early 1 hr GTT @ 20wks 11/03 APPT Hyperemesis 913726631 phenerga n now prn Anxiety in 094917964 [address] will continue to monitor Jun Calculation Initial [...] Date Ultra Sound Latest Days Gestation 0 [email or web address] 09/14/2021 03/16/20 22 0 Pre-fabiola Flowsheet Flowsheet [...] Weight in lbs Pre/Post Dialysis Refused Weight 110.669333057577 BP Diastolic BP Location Tested BP Systolic [...] Weight in lbs Pre/Post Dialysis Refused Weight 119.562367595235 BP Diastolic BP Location Tested BP Systolic [...] Weight in lbs Pre/Post Dialysis Refused Weight 120.711666734116 BP Diastolic BP Location Tested BP Systolic [...] Weight in lbs Pre/Post Dialysis Refused Weight 124.869562867652 BP Diastolic BP Location Tested BP Systolic [...] Weight in lbs Pre/Post Dialysis Refused Weight 137.636680748566 BP Diastolic BP Location Tested BP Systolic [...] Weight in lbs Pre/Post Dialysis Refused Weight 145.9057700723 BP Diastolic BP Location Tested BP Systolic [...] Weight in lbs Pre/Post Dialysis Refused Weight 152.394228583583 BP Diastolic BP Location Tested BP Systolic [...] Weight in lbs Pre/Post Dialysis Refused Weight 150.317214931778 BP Diastolic BP Location Tested BP Systolic [...] Weight in lbs Pre/Post Dialysis Refused Weight 157.952863169808 BP Diastolic BP Location Tested BP Systolic [...] Weight in lbs Pre/Post Dialysis Refused Weight 158.500328487072 BP Diastolic BP Location Tested BP Systolic [...] Weight in lbs Pre/Post Dialysis Refused Weight 163.585478520979 BP Diastolic BP Location Tested BP Systolic [...] Weight in lbs Pre/Post Dialysis Refused Weight 134.828045624266 BP Diastolic BP Location Tested BP Systolic [...] At Estimated Date of Delivery false Thalassemia (Lithuanian, Guyanese, Mediterranean, Or Background): MCV < 80 false Neural Tube Defect (Meningom yelocele, Spina Bifida, Or Anencephaly) false Congenital Heart Defect false Down Syndrome false Erick-Sachs (eg, Gnosticist, Cajun, Mohawk-British) f alse Lizzette Disease false Sickle Cell [...] Domestic Partner Domestic Partner Phone Father Name Revenue Investigator Status 07/05/20 21 1 CLOSED Fetus Data First Name Last Name Admitted to NICU Weight (g) Sex Living Outcome Pediatric Complications Fetus ID Race Codes Race Delivery Type 3175.14 4 F Full Term 13654 Vaginal Delivery Jun Calculation Initial Jun Date [...] Domestic Partner Domestic Partner Phone Father Name Revenue Investigator Status 11/01/19 24 1 B Positive 126 [address] CLOSED Fetus Data First Name Last Name Admitted to NICU Weight (g) Sex Living Outcome Pediatric Complications Fetus ID Race Codes Race Delivery Type 3401.94 M true Full Term 37251 Vaginal Delivery Problems Problem Notes gallbladder attack/pain - re ferral to Gen Surg Dr. Boles sent 11/08- pt never went because pain stopped Problem Name Start Date End Date Resolution Snomed Code Not e Anxiety 02283270 prozac Nausea 465005852 d/c zofran pump 11/08 per pt request hemorrhage 33912479 hx of 2017 with d&c Jun Calculation Initial Jun Date Initial Exam Date Initial Exam Provider Initial Ultrasound Date Last Menstrual Period Date Ultra Sound Weeks Gestation 04/16/2024 10/02/2023 10/02/2023 11 Eighteen To Twenty Week Jun Update Ultra Sound Date Fundal Height At Umbil Quickening Date Ultra Sound Latest Weeks Gestation Final Jnu Confirmed By Final Jun Confirmed Date Final Jun Date Ultra Sound Latest Days Gestation 0 0 Pre- Flowsheet Flowsheet Date 11/01/2023 Gibson Score Blood Edema Fundus Height Fundus Units Glucose Ketones Leukocytes Nitrite Labor Signs Protein Cervic Dilation Cervic Effacement Cervic Station neg none none trace Type Weight in lbs Pre/Post Dialysis Refused Weight 130.742923346435 BP Diastolic BP Location Tested BP Systolic [...] Weight in lbs Pre/Post Dialysis Refused Weight 136.973673686963 BP Diastolic BP Location Tested BP Systolic [...] Weight in lbs Pre/Post Dialysis Refused Weight 144.800252429696 BP Diastolic BP Location Tested BP Systolic [...] Weight in lbs Pre/Post Dialysis Refused Weight 154.467213829072 BP Diastolic BP Location Tested BP Systolic [...] Weight in lbs Pre/Post Dialysis Refused Weight 157.331203472228 BP Diastolic BP Location Tested BP Systolic [...] Domestic Partner Domestic Partner Phone Father Name Revenue Investigator Status 03/02/20 25 1 B Positive 164 CLOSED Fetus Data First Name Last Name Admitted to NICU Weight (g) Sex Living Outcome Pediatric Complications Fetus ID Race Codes Race Delivery Type [facility] false 4025.62 9 F true Full Term 29043 Vaginal Delivery Problems Problem Notes SDH form completed 5GI consult Tachycardia Holter monitor 72 order- pt sent back on 03-27-25 Cardiology referral faxed per Dr Martínez office calling pt 04/21 to schedule consult scheduled 05/11 11:15AM Problem Name Start Date End Date Resolution Snomed Code Not e Uncomplicated moderate persistent asthma 03/02/2025 179195901 albuterol prn Abnormal placenta affecting management of mother 05/04/2025 93573870 [facility] serial grow th us Iron deficiency anemia 05/25/2025 35165803 [facility] tx [place] 200mg x1 HGB 10.6 Nausea and vomiting 03/02/2025 47041337 Anxiety 03/02/2025 56637371 sertralin e started 03/02/25 changed to prozac 10 on Gestational diabetes mellitus 07/08/2025 56530643 checking bs QID - ruled in GDM Referral faxed to [facility] 07/07 Frequent headache 05/03/2025 756447378 [place] to [facility] 05/21, discharge 05/23 MF referral faxed 05/24 SS Neurology consult pending per KAJAL Pittman [facility]- Neuro [facility] unable to see pt due to insurance 05/25[facility] 07/05/25 Level US & Consult (see [facility] consult zayas recommendations ) regimen prn Imitrex 50mg for acute migraine, vitamin B2 (Riboflavin) 400mg, Coenzyme q10 300mg and magnesium oxide 200 to 600mg daily. minimize use of Excedrin or Tylenol to no more than 2-3 times a week. 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/2025 5433009 32wk growth us Jun Calculation Initial Jun [...] Weight in lbs Pre/Post Dialysis Refused Weight 158.150246862391 BP Diastolic BP Location Tested BP Systolic [...] Weight in lbs Pre/Post Dialysis Refused Weight 158.248346963034 BP Diastolic BP Location Tested BP Systolic [...] Weight in lbs Pre/Post Dialysis Refused Weight 162.309848484230 BP Diastolic BP Location Tested BP Systolic BP Type 78 123 Fetus Heart Rate Present A 148 Fetus Movement A Yes Comments Patient is having having ronny n, cramping and vaginal discharge. went to ed exam done cultures and rx sent, ?FM, await chorus master results rfilled zofran, precautions and education f/u [...] Type Weight in lbs Pre/Post Dialysis Refused 168.832959118113 BP Diastolic BP Location Tested BP Systolic [...] Type Weight in lbs Pre/Post Dialysis Refused 169.685458606287 BP Diastolic BP Location Tested BP Systolic [...] Weight in lbs Pre/Post Dialysis Refused Weight 175.334184374926 BP Diastolic BP Location Tested BP Systolic [...] Weight in lbs Pre/Post Dialysis Refused Weight 182.579403097643 BP Diastolic BP Location Tested BP Systolic [...] Weight in lbs Pre/Post Dialysis Refused Weight 181.471089323511 BP Diastolic BP Location Tested BP Systolic BP Type 73 L arm 131 sitting Fetus Heart Rate Present Fetus Movement A Yes Comments viral URI testied neg at urg ent care, nausea resolved, efw 68%, +FM plan education and precautions f/u 2 weeks diagnosed GDM, plan map colorer, gave list reviewed protein vs carb Flowsheet Date 07/21/2025 Gibson Score Blood Edema Fundus Height Fundus Units Glucose Ketones Leukocytes Nitrite Labor Signs Protein Cervic Dilation Cervic Effacement Cervic Station Type Weight in lbs Pre/Post Dialysis Refused Weight 181.665844133563 BP Diastolic BP Location Tested BP Systolic BP Type 78 L arm 127 sitting Fetus Heart Rate Present A 150 Fetus Movement A Yes Comments rpt urine culture +FM review ed blood sugars, meets with map colorer today, precautions and education f/u 2 weeks [...] Weight in lbs Pre/Post Dialysis Refused Weight 181.589268666588 BP Diastolic BP Location Tested BP Systolic [...] Weight in lbs Pre/Post Dialysis Refused Weight 183.370197379911 BP Diastolic BP Location Tested BP Systolic [...] Type Weight in lbs Pre/Post Dialysis Refused 184.679003028415 BP Diastolic BP Location Tested BP Systolic [...] Type Weight in lbs Pre/Post Dialysis Refused 184.345827810296 BP Diastolic BP Location Tested BP Systolic [...] Type Weight in lbs Pre/Post Dialysis Refused 184.407910628206 BP Diastolic BP Location Tested BP Systolic [...] Weight in lbs Pre/Post Dialysis Refused Weight 184.329808253870 BP Diastolic BP Location Tested BP Systolic [...] Weight in lbs Pre/Post Dialysis Refused Weight 164.701706629392 BP Diastolic BP Location Tested BP Systolic [...]
--- OUTSIDE RECORDS SUMMARY | 2025-09-16 17:57 | XMS_ITS | Continuity of Care Document ---
Author Organization [facility], [facility] [place] Address [address] [place] [place] [address] [place] [address] Care Team Providers Care Inspector Receiving Name Role Phone CARLOS ESTRADA Primary Care Provider Assessment No assessment recorded. Plan of Treatment Reminders Order Date Submit Date Provider Last Modified By Organization Details Last Modified Time Details Appointments None record ed. Lab None record ed. Referral None record ed. Procedures None record ed. Surgeries None record ed. Imaging non-st ress test 025 08/18/20 25 [email or web address] [address], [address], [place], [address], 16:17:31 Medication Orders None record ed. Patient TargetsNo targets recorded. Patient InstructionsNo instructions recorded. Reason for Referral None Reported. Results Created Date Observation Date Name Description Value Unit Range Abnormal Flag Note LastModifiedBy Organization Detail LastModifiedTime 03/06/20 25 03/06/2025 [UNIT Y] ANEUP LOIDY NIPT fraction 5.7% normal Not Available [facility] [address], [place], [address], 03/06/2025 03:58:26 03/06/20 25 03/06/2025 [UNIT Y] ANEUP LOIDY NIPT sex chromosome aneuploidy NOT DETECT ED normal Not Available [facility] [address], [place], [address], 03/06/2025 03:58:26 03/06/20 25 03/06/2025 [UNIT Y] ANEUP LOIDY NIPT monosomy X LOW RISK <1 in 10,000 normal Not Available [facility] [address], [place], [address], 03/06/2025 03:58:26 03/06/20 25 03/06/2025 [UNIT Y] ANEUP LOIDY NIPT trisomy 13 LOW RISK <1 in 10,000 normal Not Available [facility] [address], [place], [address], 03/06/2025 03:58:26 03/06/20 25 03/06/2025 [UNIT Y] ANEUP LOIDY NIPT trisomy 18 LOW RISK <1 in 10,000 normal Not Available [facility] [address], [place], [address], 03/06/2025 03:58:26 03/06/20 25 03/06/2025 [UNIT Y] ANEUP LOIDY NIPT trisomy 21 LOW RISK <1 in 10,000 normal Not Available [facility] [address], [place], [address], 03/06/2025 03:58:26 03/06/20 25 03/06/2025 [UNIT Y] ANEUP LOIDY NIPT sex FEMALE normal Not Available [facility] [address], [place], [address], 03/06/2025 03:58:26 03/06/20 25 03/06/2025 [UNIT Y] ANEUP LOIDY NIPT gestation SINGLE TON normal Not Available [facility] [address], [place], [address], 03/06/2025 03:58:26 03/06/20 25 03/06/2025 [UNIT Y] ANEUP LOIDY NIPT for detailed report, see pdf See PDF normal Not Available [facility] [address], [place], [address], 03/06/2025 03:58:26 03/02/20 25 03/02/2025 CULTU RE: URINE result report SEE RESULT S BELOW Test: Cultu re: Urine Speci men Sourc e: Urine - Clean Catch Speci men Type: Urine Speci men Date: 025 1455 Resul t Date: 025 2138 Resul t Statu s: Final resul t Abnor mal: No Resul ting Lab: [facility] [address] [facility] [address] Tel: CULTU RE ----- ----- ----- --- No growt h in 1 day (dete ction level of 10,00 0 colon ies / ml.) Not Available [facility] (Lab) [address] [facility], [place], [address], 03/03/2025 22:42:27 03/12/2003/12/2025 CULTU RE: URINE result report SEE RESULT S BELOW Test: Cultu re: Urine Speci men Sourc e: Urine - Clean Catch Speci men Type: Urine Speci men Date: 2024 1600 Resul t Date: 2024 0610 Resul t Statu s: Final resul t Abnor mal: No Resul ting Lab: [facility] [address] [facility] [address] Tel: CULTU RE ----- ----- ----- --- No growt h in 1 day (dete ction level of 10,00 0 colon ies / ml.) Not Available [facility] (Lab) [address] [facility], [place], [address], 03/14/2025 07:15:03 03/12/2003/12/2025 urina lysis , dipst ick Leukocytes ++ Not Available [address], [place], [address], 03/12/2025 16:45:06 03/12/2003/12/2025 urina lysis , dipst ick Protein + Not Available [address], [place], [address], 03/12/2025 16:45:06 03/12/20 25 03/12/2025 urina lysis , dipst ick pH 5 Not Available [address], [place], [address], 03/12/2025 16:45:06 03/12/20 25 03/12/2025 urina lysis , dipst ick Blood trace Not Available [address], [place], [address], 03/12/2025 16:45:06 03/12/20 25 03/12/2025 urina lysis , dipst ick Specific Bennet 1.015 Not Available [facility] [address], [place], [address], 03/12/2025 16:45:06 03/12/20 25 03/12/2025 urina lysis , dipst ick Ketone +++ Not Available [address], [place], [address], 03/12/2025 16:45:06 03/31/20 25 03/31/2025 TSH, REFLE X FREE T4 TSH 0.42 uIU/m L 0.30-5 .33 Not Available [facility] (Lab) [address], [place], [address], 04/01/2025 03:05:12 03/31/20 25 03/31/2025 CULTU RE: URINE result report SEE RESULT S BELOW Test: Cultu re: Urine Speci men Sourc e: Urine Voide d Speci men Type: Urine Speci men Date: 1710 Resul t Date: 6 Resul t Statu s: Final resul t Abnor mal: No Resul ting Lab: [facility] [address] [facility] [address] Tel: CULTU RE ----- ----- ----- --- Cultu re resul t (>=3 organ isms prese nt) indic ates possi ble conta minat ion. Repea t cultu re if sympt oms indic ate. Not Available [facility] (Lab) [address] [facility], [place], [address], 04/01/2025 23:59:19 03/31/20 25 03/31/2025 urina lysis , dipst ick Leukocytes +1 Not Available [address], [place], [address], 03/31/2025 09:23:13 03/31/20 25 03/31/2025 urina lysis , dipst ick Nitrite normal Not Available [address], [place], [address], 03/31/2025 09:23:13 03/31/20 25 03/31/2025 urina lysis , dipst ick Urobilinogen normal Not Available [facility] [address], [place], [address], 03/31/2025 09:23:13 03/31/20 25 03/31/2025 urina lysis , dipst ick Protein trace Not Available [address], [place], [address], 03/31/2025 09:23:13 03/31/20 25 03/31/2025 urina lysis , dipst ick pH 5 Not Available [address], [place], [address], 03/31/2025 09:23:13 03/31/20 25 03/31/2025 urina lysis , dipst ick Specific Bennet 1.020 Not Available [facility] [address], [place], [address], 03/31/2025 09:23:13 03/31/20 25 03/31/2025 urina lysis , dipst ick Ketone normal Not Available [address], [place], [address], 03/31/2025 09:23:13 03/31/20 25 03/31/2025 urina lysis , dipst ick Bilirubin normal Not Available [facility] [address], [place], [address], 03/31/2025 09:23:13 03/31/20 25 03/31/2025 urina lysis , dipst ick Glucose normal Not Available [address], [place], [address], 03/31/2025 09:23:13 03/31/20 25 03/31/2025 urina lysis , dipst ick Appearance normal Not Available [facility] [address], [place], [address], 03/31/2025 09:23:13 03/31/20 25 03/31/2025 urina lysis , dipst ick Color normal Not Available [address], [place], [address], 03/31/2025 09:23:13 04/01/20 25 04/01/2025 WOMEN 'S HEALT H SWAB PLUS, DENIS bacterial vaginosis (bv), tma Negati ve negati ve Not Available [facility] (Lab) [address] [place], [address], 04/02/2025 14:08:45 04/01/20 25 04/01/2025 [facility], DENIS mekhi species, tma Negati ve negati ve Not Available [facility] (Lab) [address] [place], [address], 04/02/2025 14:08:45 04/01/20 25 04/01/2025 WOMEN 'S HEALT H SWAB PLUS, DENIS mekhi glabrata, tma Negati ve negati ve Not Available [facility] (Lab) [address] [place], [address], 04/02/2025 14:08:45 04/01/20 25 04/01/2025 [facility], DENIS trichomonas vaginalis, tma Negati ve negati ve Not Available [facility] (Lab) [address] [facility], [place], [address], 04/02/2025 14:08:45 04/01/20 25 04/01/2025 [facility], DENIS chlamydia trachomatis, PCR Negati ve negati ve Not Available [facility] (Lab) [address] [place], [address], 04/02/2025 14:08:45 04/01/20 25 04/01/2025 [facility], DENIS neisseria gonorrhoeae, [...] ded in this panel . Not Available [facility] (Lab) [address] [place], [address], 04/02/2025 14:08:45 04/22/2004/22/2025 CULTU RE: URINE result report SEE RESULT S BELOW Test: Cultu re: Urine Speci men Sourc e: Urine Voide d Speci men Type: Urine Speci men Date: 2024 1314 Resul t Date: 2024 0322 Resul t Statu s: Final resul t Abnor mal: No Resul ting Lab: [facility] [address] [facility] [address] Tel: CULTU RE ----- ----- ----- --- No growt h in 1 day (dete ction level of 10,00 0 colon ies / ml.) Not Available [facility] (Lab) [address], [place], [address], 04/24/2025 04:28:01 04/22/20 25 04/22/2025 urina lysis , dipst ick Leukocytes + Not Available [address], [place], [address], 04/22/2025 10:01:51 04/22/20 25 04/22/2025 urina lysis , dipst ick Protein + Not Available [address], [place], [address], 04/22/2025 10:01:51 04/22/20 25 04/22/2025 urina lysis , dipst ick pH 8 Not Available [address], [place], [address], 04/22/2025 10:01:51 04/22/20 25 04/22/2025 urina lysis , dipst ick Blood + Not Available [address], [place], [address], 04/22/2025 10:01:51 04/22/2004/22/2025 urina lysis , dipst ick Specific Bennet 1.010 Not Available [facility] [address], [place], [address], 04/22/2025 10:01:51 04/22/2004/22/2025 urina lysis , dipst ick Ketone + Not Available [address], [place], [address], 04/22/2025 10:01:51 06/23/2006/23/2025 HEMAT OCRIT (HCT) HCT 35.6 % (based on docume nted legal sex) 34.0-4 5.0 Not Available [facility] (Lab) [address] [facility], [place], [address], 06/24/2025 11:45:32 06/23/20 25 06/23/2025 HEMOG LOBIN (HGB) HGB 11.1 g/dL (based on docume nted legal sex) 11.6-1 5.4 low Not Available [facility] (Lab) [address] [facility], [place], [address], 06/24/2025 11:45:32 06/23/20 25 06/23/2025 GTT - GESTA ROLAND L SCREE N, ACOG OB glucose, 1 hour screen 180 mg/dL 70-135 high Not Available [facility] (Lab) [address] [facility], [place], [address], 06/24/2025 11:45:33 06/23/20 25 06/23/2025 HIV 1/2 ANTIG EN/AN TIBOD Y, REFLE X CONFI RMATI ON HIV antigen/anti body Nonrea ctive nonrea ctive HIV-1 antig en and HIV-1 /HIV- 2 antib odies were not detec greg. No labor atory evide nce of HIV infec tion. Not Available [facility] (Lab) [address] [facility], [place], [address], 06/24/2025 11:45:33 06/23/20 25 06/23/2025 RPR SCREE N, REFLE X TITER /CONF IRMAT ION RPR qualitative Nonrea ctive nonrea ctive Not Available [facility] (Lab) [address] [facility], [place], [address], 06/24/2025 11:45:34 07/21/20 25 07/21/2025 CULTU RE: URINE result report SEE RESULT S BELOW Test: Cultu re: Urine Speci men Sourc e: Urine - Clean Catch Speci men Type: Urine Speci men Date: 2024 1024 Resul t Date: 2024 0252 Resul t Statu s: Final resul t Abnor mal: No Resul ting Lab: [facility] [address] [facility] [address] Tel: CULTU RE ----- ----- ----- --- No growt h in 1 day (dete ction level of 10,00 0 colon ies / ml.) Not Available [facility] (Lab) [address] [place], [address], 07/23/2025 03:57:01 07/21/2007/21/2025 urina lysis , dipst ick Leukocytes ++ Not Available [address], [place], [address], 07/21/2025 11:03:04 07/21/20 25 07/21/2025 urina lysis , dipst ick Nitrite neg Not Available [address], [place], [address], 07/21/2025 11:03:04 07/21/20 25 07/21/2025 urina lysis , dipst ick Urobilinogen neg Not Available [facility] [address], [place], [address], 07/21/2025 11:03:04 07/21/20 25 07/21/2025 urina lysis , dipst ick Protein + Not Available [address], [place], [address], 07/21/2025 11:03:04 07/21/20 25 07/21/2025 urina lysis , dipst ick pH 5 Not Available [address], [place], [address], 07/21/2025 11:03:04 07/21/20 25 07/21/2025 urina lysis , dipst ick Specific Bennet 1.030 Not Available [facility] nita [address], [place], [address], 07/21/2025 11:03:04 07/21/20 25 07/21/2025 urina lysis , dipst ick Ketone +++ Not Available [address], [place], [address], 07/21/2025 11:03:04 07/21/20 25 07/21/2025 urina lysis , dipst ick Bilirubin neg Not Available [address], [place], [address], 07/21/2025 11:03:04 07/21/20 25 07/21/2025 urina lysis , dipst ick Glucose neg Not Available [address], [place], [address], 07/21/2025 11:03:04 07/21/20 25 07/21/2025 urina lysis , dipst ick Appearance cloudy Not Available [address], [place], [address], 07/21/2025 11:03:04 07/21/20 25 07/21/2025 urina lysis , dipst ick Color dark Not Available [address], [place], [address], 07/21/2025 11:03:04 08/04/20 25 08/04/2025 CMP(C OMPRE HENSI VE METAB OLIC PANEL ) sodium 138 mmol/ L 133-14 6 Not Available [facility] (Lab) [address] [facility], [place], [address], 08/05/2025 13:39:18 08/04/20 25 08/04/2025 CMP(C OMPRE HENSI VE METAB OLIC PANEL ) potassium 4.0 mmol/ L 3.5-5. 1 Not Available [facility] (Lab) [address] [facility], [place], [address], 08/05/2025 13:39:18 08/04/20 25 08/04/2025 CMP(C OMPRE HENSI VE METAB OLIC PANEL ) chloride 105 mmol/ L 98-107 Not Available [facility] (Lab) [address] [facility], [place], [address], 08/05/2025 13:39:18 08/04/20 25 08/04/2025 CMP(C OMPRE HENSI VE METAB OLIC PANEL ) carbon dioxide 25 mmol/ L 21-31 Not Available [facility] (Lab) [address] [facility], [place], [address], 08/05/2025 13:39:18 08/04/20 25 08/04/2025 CMP(C OMPRE HENSI VE METAB OLIC PANEL ) anion gap 8 mmol/ L 4-13 Not Available [facility] (Lab) [address] [facility], [place], [address], 08/05/2025 13:39:18 08/04/20 25 08/04/2025 CMP(C OMPRE HENSI VE METAB OLIC PANEL ) blood urea nitrogen 10 mg/dL 7-25 Not Available [facility] (Lab) [address] [facility], [place], [address], 08/05/2025 13:39:18 08/04/20 25 08/04/2025 CMP(C OMPRE HENSI VE METAB OLIC PANEL ) creatinine 0.41 mg/dL 0.60-1 .30 low Not Available [facility] (Lab) [address] [facility], [place], [address], 08/05/2025 13:39:18 08/04/20 25 08/04/2025 CMP(C OMPRE HENSI VE METAB OLIC PANEL ) egfrcr (CKD-epi 2020) >90 mL/mi n/1.7 3_m2 >=60 Not Available [facility] (Lab) [address] [facility], [place], [address], 08/05/2025 13:39:18 08/04/20 25 08/04/2025 CMP(C OMPRE HENSI VE METAB OLIC PANEL ) calcium 8.9 mg/dL 8.3-10 .5 Not Available [facility] (Lab) [address] [facility], [place], [address], 08/05/2025 13:39:18 08/04/20 25 08/04/2025 CMP(C OMPRE HENSI VE METAB OLIC PANEL ) glucose 116 mg/dL 70-100 high Not Available [facility] (Lab) [address] [facility], [place], [address], 08/05/2025 13:39:18 08/04/20 25 08/04/2025 CMP(C OMPRE HENSI VE METAB OLIC PANEL ) protein, total 6.1 g/dL 6.4-8. 3 low Not Available [facility] (Lab) [address] [facility], [place], [address], 08/05/2025 13:39:18 08/04/20 25 08/04/2025 CMP(C OMPRE HENSI VE METAB OLIC PANEL ) albumin 3.5 g/dL 3.5-5. 0 Not Available [facility] (Lab) [address] [facility], [place], [address], 08/05/2025 13:39:18 08/04/20 25 08/04/2025 CMP(C OMPRE HENSI VE METAB OLIC PANEL ) ALT 11 units /L 9-43 Not Available [facility] (Lab) [address] [facility], [place], [address], 08/05/2025 13:39:18 08/04/20 25 08/04/2025 CMP(C OMPRE HENSI VE METAB OLIC PANEL ) alkaline phosphatase 98 units /L 34-104 Not Available [facility] (Lab) [address] [facility], [place], [address], 08/05/2025 13:39:18 08/04/20 25 08/04/2025 CMP(C OMPRE HENSI VE METAB OLIC PANEL ) AST 15 units /L 13-39 Not Available [facility] (Lab) [address] [facility], [place], [address], 08/05/2025 13:39:18 08/04/20 25 08/04/2025 CMP(C OMPRE HENSI VE METAB OLIC PANEL ) bilirubin, total 0.3 mg/dL 0.2-1. 2 Not Available [facility] (Lab) [address] [facility], [place], [address], 08/05/2025 13:39:18 08/04/20 25 08/04/2025 BILE ACIDS , TOTAL bile acids, total 4 umol/ L 0-10 Test Perfo rmed by: [facility] [address] Not Available [facility] (Lab) [address] [facility], [place], [address], 08/05/2025 13:39:19 03/02/20 25 03/02/2025 US, obste tric, nucha l trans lucen cy No observ ation record ed. [email or web address] [address], [place], [address], 03/02/2025 13:35:30 03/02/20 25 03/02/2025 US, obste tric, nucha l trans lucen cy No observ ation record ed. [email or web address] [address], [place], [address], 03/03/2025 14:08:39 03/08/20 25 03/08/2025 US, obste tric, 1st trime ster No observ ation record ed. [email or web address] [address], [place], [address], 03/08/2025 12:22:22 03/08/20 25 03/08/2025 US, obste tric, 1st trime ster No observ ation record ed. [email or web address] [address], [place], [address], 03/10/2025 15:03:13 04/01/20 25 03/24/2025 qamar r monit or No observ ation record ed. [address] [facility], [place], [address], 04/08/2025 12:36:45 04/01/20 25 03/22/2025 qamar r monit or No observ ation record ed. [address] (Pulmonary) [address] [place] [address] [address] [facility], [place], [address], 04/06/2025 08:59:34 04/20/20 25 04/20/2025 US, obste tric, limit ed No observ ation record ed. [email or web address] [address], [place], [address], 04/20/2025 17:39:30 04/20/20 25 04/20/2025 US, obste tric, follo w-up No observ ation record ed. [email or web address] [address], [place], [address], 04/23/2025 08:32:54 04/28/20 25 04/28/2025 US, obste tric, 2nd or 3rd trime ster No observ ation record ed. [email or web address] [address], [place], [address], 04/28/2025 17:48:42 04/28/20 25 04/28/2025 US, obste tric, 2nd or 3rd trime ster No observ ation record ed. [email or web address] [address], [place], [address], 05/04/2025 22:16:11 05/07/20 25 05/07/2025 non-s tress test No observ ation record ed. [address], [place], [address], 05/28/2025 13:33:54 05/21/20 25 05/21/2025 CT, head + brain , w/o contr ast No observ ation record ed. [email or web address], [place], [address], 05/24/2025 13:48:57 05/28/20 25 05/28/2025 US, obste tric, follo w-up No observ ation record ed. [email or web address] [address], [place], [address], 05/28/2025 17:32:34 05/28/20 25 05/28/2025 US, obste tric, follo w-up No observ ation record ed. [address], [place], [address], 06/01/2025 15:13:13 08/10/16 2506/07/2025 US, obste tric, follo w-up No observ ation record ed. [email or web address] [facility] [address] [facility], [place], [address], 06/15/2025 10:53:46 07/07/20 25 07/07/2025 US, obste tric, follo w-up No observ ation record ed. [email or web address] [address] [address], [place], [address], 07/07/2025 13:18:01 07/07/2007/07/2025 US, obste tric, follo w-up No observ ation record ed. [email or web address] [address], [place], [address], 07/07/2025 11:29:37 08/04/20 25 08/04/2025 US, obste tric, follo w-up No observ ation record ed. [email or web address] [facility] [address], [place], [address], 08/04/2025 15:08:50 08/04/2008/04/2025 US, obste tric, follo w-up No observ ation record ed. [email or web address] [address], [place], [address], 08/06/2025 10:41:50 08/11/2008/11/2025 non-s tress test No observ ation record ed. [email or web address] [facility] [address], [place], [address], 08/11/2025 17:37:52 08/11/20 non-s tress test No observ ation record ed. [email or web address] [facility] [address], [place], [address], 08/11/2025 17:38:11 08/15/2008/15/2025 non-s tress test No observ ation record ed. [place] [id number] [facility] [address], [place], [address], 08/21/2025 10:18:57 08/15/2008/15/2025 US, obste tric, bioph ysica l profi le No observ ation record ed. [place] [id number] [facility] [address], [place], [address], 08/17/2025 10:50:53 08/18/2008/18/2025 US, obste tric, bioph ysica l profi le + non-s tress test No observ ation record ed. [email or web address] [facility], [place], [address], 08/18/2025 10:21:39 08/18/2008/18/2025 US, obste tric, bioph ysica l profi le + non-s tress test No observ ation record ed. [email or web address] [address], [place], [address], 08/18/2025 10:35:44 08/18/2008/18/2025 non-s tress test No observ ation record ed. [address], [place], [address], 08/18/2025 17:34:03 08/18/20 non-s tress test No observ ation record ed. [email or web address] [facility] [address], [place], [address], 08/18/2025 16:06:09 08/25/2008/25/2025 US, obste tric, bioph ysica l profi le + non-s tress test No observ ation record ed. [email or web address] [facility] [address], [place], [address], 08/25/2025 18:52:06 08/25/2008/25/2025 US, obste tric, follo w-up No observ ation record ed. [email or web address] [address], [place], [address], 08/25/2025 15:47:28 08/25/2008/25/2025 non-s tress test No observ ation record ed. [email or web address] [place] [address], [place], [address], 08/25/2025 18:12:15 08/25/20 non-s tress test No observ ation record ed. [email or web address] [place] [address], [place], [address], 08/25/2025 17:21:19 08/30/20 25 08/30/2025 non-s tress test No observ ation record ed. [email or web address] [address] [place] [address], [id number], 09/15/2025 15:26:49 09/01/20 25 09/01/2025 non-s tress test No observ ation record ed. [place] [id number] [facility] [address], [place], [address], 09/13/2025 11:32:22 09/01/20 25 09/01/2025 US, obste tric No observ ation record ed. [place] [id number] [facility] [address], [place], [address], 09/02/2025 15:56:01 09/01/20 25 09/01/2025 non-s tress test No observ ation record ed. [email or web address] [id number] [facility] [address], [place], [address], 09/02/2025 14:32:38 09/16/20 25 09/16/2025 imagi ng/di agnos tic resul t No observ ation record ed. [facility] [address], [place], [address], 09/16/2025 18:07:05 Result Notes None recorded. Problems Name Problem SNOMED Code Status Onset Date Resolution Date Notes Provider Name and Address Organization Details Recorded Time Hypereme sis 052590603 Completed phenerga n now prn [place] ramos [facility] 2 16:43:51 Anxiety in pregnanc y [id number] [id number] Completed will continue to monitor Asia ramos [facility] 2 16:43:51 Past pregnanc y history of gestatio nal diabetes mellitus [id number] Completed Early 1 hr GTT @ 20wks 11/03 APPT Asia ramos [facility] 2 16:43:51 Spinal muscular atrophy 0358784 Completed Carrier - Not in contact with FOB. Asia ramos [facility] 2 16:43:51 Anxiety 76527684 Completed prozac Karina ramos [facility] 4 11:00:46 Nausea 156676256 Completed d/c zofran pump 11/08 per pt request Karina ramos [facility] 4 11:00:46 Postpart um hemorrha ge [id number] Completed - 2017 with d&c Karina ramos [facility] 4 11:00:46 Normal pregnanc y in multigra jessy [id number] 55417 Completed 201907/05/2021 Encounte r for supervis ion of other normal pregnanc y, 3rd trimeste r;Record ed Elsewher e: No Locat ion: Jaelyn castillo [facility] S ource: EHR Territory Account Executive yvrose: N Natalyati ce ID: 0001 Gigi lable Time: 10:45:00 AM Karina ramos [facility] 10:15:27 Gestatio n period, 37 weeks 68605797 Completed 201907/05/2021 37 weeks gestatio n of pregnanc y;Record ed Elsewher e: No [facility]at [facility] S ource: EHR Territory Account Executive yvrose: N Natalyati ce ID: 0001 Gigi lable Time: 09:00:00 AM Karina ramos, [facility] 10:15:[address] Concept Completed 201907/05/2021 Matern care for abnlt fetl hrt rate or rhym, 3rd tri, unsp;Rec orded Elsewher e: No Locat ion: [facility] S ource: EHR Territory Account Executive yvrose: N Natalyati ce ID: 0001 Gigi lable Time: 08:45:00 AM Karina ramos [facility] 10:15:29 Gestatio nal diabetes mellitus 30025753 Completed 201907/05/2021 Gestatio nal diabetes mellitus in pregnanc y, diet controll ed;Recor ded Elsewher e: No Locat ion: [facility] S ource: EHR Territory Account Executive yvrose: N Natalyati ce ID: 0001 Gigi lable Time: 11:45:00 AM Karina ramos [facility] 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 10:15:13 Amenorrh ea 17203202 Completed 202007/10/2021 Tammi Jones null, [facility] 13:08:35 Pregnanc y 51658713 Completed 202003/29/2022 Emma Dykes null, [facility] 5 12:28:48 Pregnanc y 96698625 Completed 202304/22/2024 Emma Dykes null, [facility] 12:28:48 Headache 42876492 Active 2023 Karina Burroughs null, [facility] 16:19:28 Pregnanc y 07033322 Completed 202309/14/2025 Emma Dykes null, [facility] 5 12:28:48 Uncompli cated moderate persiste nt asthma 540234980 Completed 2024 albutero l prn Shawn Bradley MD [address], [place], [address], [facility] 13:08:36 Anxiety 29250451 Completed 2024 sertrali ne started 03/02/25 changed to prozac 10 on Shawn Bradley MD [address], [place], [address], [facility] 5 17:05:48 Nausea and vomiting 56716037 Completed 2024 Shawn Bradley MD [address], [place], [address], [facility] 13:20:27 Placenta circumva llata 8690627 Completed 2024 32wk growth Ryann ramos, [facility] 5 09:44:35 Frequent headache 317571658 Completed [address] [facility] 05/21, discharg e 05/23 MFM referral faxed 05/24 SS Neurolog y consult pending per KAJAL Pittman [facility]- [facility] unable to see [...] 2-3 times a week. Ryann ramos [facility] 5 10:55:26 Abnormal placenta affectin g manageme nt of mother 24664082 Completed 2024 MCI serial growth Ryann ramos [facility] 5 10:46:25 Iron deficien cy anemia 09538748 Completed 20[facility] venofer 200mg x1 HGB 10.6 Ryann Castro rachel [facility] 5 15:21:25 Gestatio nal diabetes mellitus 51648140 Completed 2024 checking bs QID - ruled in GDM Referral faxed to [facility] 07/07 Ryann Castro rachel [facility] 5 14:36:52 Notes:[facility], and home health already caring for pt. Vladimir RDZ at [phone] Problem Notes None recorded. Procedures Surgical History Date Name Laterality Status Provider Name and Address Organization Details Recorded Time 025 SALPINGECTOMY, LAPAROSCOPIC (SURG) completed [facility] 11:19:17 025 Date of Last Pap Smear completed Karina Burroughs [facility] 01/28/2025 11:19:42 024 Nexplanon Removal completed Shawn Bradley MD [address], [place], [address], [facility] 08/05/2024 15:09:58 024 Control Implant Insertion completed Anju Mcnamara CNM [address], [place], [address], [facility] 05/08/2024 17:59:34 024 cholecystectomy completed Karina Burroughs [facility] 03/31/2025 09:18:57 018 Dilation and Curettage completed Karina Burroughs [facility] 07/05/2021 10:17:50 Imaging Results None recorded. Procedure Notes None recorded. Medical Equipment None Reported. Allergies Allergen ID Allergen Name Allergen Category Reaction Reaction Severity Criticality Documentation Date Start Date Code Code System Note Provider Name and Address Organization Details Recorded Time 78998 terbutali ne medicatio n anaphylax is Not available Not available 01/27/20252021 11866 RxNorm Karina ramos, [facility] 16:19:27 01865 amoxicill in medicatio n Not available Not available Not available 09/10/2025 723 RxNorm Not Available gene - External Data Service - prod 16:39:37 62701 terbinafi ne medicatio n anaphylax is Not available [facility] 09/10/20252024 00039 RxNorm Not Available [employer] External Data Service - prod 16:40:54 Medications [...] Prescrib ed Elsewher e: Yes Loca tion: [facility] odify By: prabhjot Lee r DateTime [...] n (supplie d by office) insert lot [id number] Exp 01/2026 Not Available Not Available Not Available 28 mg iron-800 mcg tablet 07/05 completed Prescrib ed Elsewher e: Yes Loca tion: [facility] odify By: prabhjot Lee r DateTime : 01/14/20 10:45:00 AM Not Available Not Available Not Available lidocaine 5 % topical ointment APPLY OINTMENT EXTERNAL LY TO RIBS THREE TIMES DAILY NEEDED 01/14 completed Not Available Not Available Not Available 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 08/18/2025 10:57:44 Date Recorded Body height Body weight Systolic And Diastolic Provider Name and Address Organization Details Last Updated DateTime 08/18/2025 162.56 cm 39639.9960 8 g 116/77 mm[Hg] Emma Dykes [facility] 08/18/2025 16:03:36 Social History Question Answer Notes LastModified by Organizat ion Details LastModified Time Tobacco Smoking Status Former Smoker Karina ramos, [facility] 07/05/2021 09:06:21 If You Are , What Was Your Level Of Alcohol Consumption Prior To ? Occasional [email or web address] Information not available 03/31/2025 Are You Blind Or Do You Have Difficulty Seeing? No [email or web address] Information not available 07/05/2021 What Is Your Level Of Caffeine Consumption? Heavy [email or web address] Information not available 07/05/2021 In The 14 Days Before Symptom Onset, Have You Had Close Contact With A Laboratory-confir [facility] COVID-19 While That Case Was Ill? No [email or web address] Information not available 07/05/2021 In The 14 Days Before Symptom Onset, Have You Had Close Contact With A Person Who Is Under Investigation For COVID-19 While That Person Was Ill? No Information not available 07/05/2021 Have You Been To An Area Known To Be High Risk For COVID-19? No [email or web address] Information not available 07/05/2021 Are You Deaf Or Do You Have Serious Difficulty Hearing? No [email or web address] Information not available 07/05/2021 What Type Of Diet Are You Following? REGULAR [email or web address] Information not available 07/05/2021 Which Illicit Or Recreational Drugs Have You Used? Marijuana [email or web address] Information not available 07/05/2021 Have You Ever Been Counseled For Unhealthy Alcohol Use? No [email or web address] Information not available 07/05/2021 Do You Use Your Seat Belt Or Car Seat Routinely? Yes Information not available 07/05/2021 Do You Have Smoke And Carbon Monoxide Detectors In Your Home? Yes [email or web address] Information not available 07/05/2021 Do You Use Sunscreen Routinely? Yes [email or web address] Information not available 07/05/2021 Has Tobacco Cessation Counseling Been Provided? No Information not available 07/05/2021 Have You Used IV Drugs? No [email or web address] Information not available 07/05/2021 Do You Have Difficulty Walking Or Climbing Stairs? No [email or web address] Information not available 12/06/2021 Sex: Unknown Functional Status Question Answer Note LastModified by Organizat ion Details LastModified Time Do you use any illicit or recreational drugs? Yes [email or web address] Information not available 07/05/2021 Do you or have you ever used any other forms of tobacco or nicotine? Yes [email or web address] Information not available 07/05/2021 What is your level of alcohol consumption? None [email or web address] Information not available 03/31/2025 Do you or have you ever used smokeless tobacco? Never used smokeless tobacco [email or web address] Information not available 07/05/2021 Are you able to walk independently without assistance or assistive devices? YESWOREST [email or web address] Information not available 07/05/2021 Are you able to care for yourself independently? Yes Information not available 12/06/2021 Do you have difficulty dressing, bathing, grooming, or toileting? No [email or web address] Information not available 12/06/2021 Do you or have you ever used e-cigarettes or vape? Current user of electronic cigarettes [email or web address] Information not available 07/05/2021 What is your exercise level? Occasional [email or web address] Information not available 07/05/2021 Mental Status Question Answer Note LastModified by Organization D etails LastModified Time Do you feel stressed (tense, restless, nervous, or anxious, or unable to sleep at night)? [id number] [email or web address] Information not available 07/05/2021 Family History Relationship Description Onset Age of this Age Resolved Age Notes LastModified by Organization Details LastModified Time Father No current problems or disability [email or web address] Not available 05/2021 09:06:31 Mother No current problems or disability [email or web address] Not available 05/2021 09:06:31 Medical History Condition [...] ICD10 Code Diagnosis IMO Codes Diagnosis Note [id number] [facility] [address] [address] 07/21/2025 09:28:54 07/21/2025 12:36:06 Pain in pelvis 11884487 R10.2 341231 Gestation period, 32 weeks 6280783 Z3A.32 7223095 [id number] Shawn Bradley MD [place] [address],[place] [address] 08/04/2025 14:02:59 08/04/2025 15:06:33 Gestational diabetes mellitus 72073586 O24.410 O43.103 O43.113 Z3A.34 52746633 [id number] [facility] [address] [place] [address] 08/04/2025 14:21:57 08/04/2025 15:26:03 Gestation period, 34 weeks 91886254 Z3A.34 1117788 Pruritic d isorder of skin 6450985177 L29.9 55028 plan labs today, ursadiol BID [id number] [facility] [address] [place] [address] 08/11/2025 14:51:38 08/11/2025 17:16:44 Gestational diabetes mellitus 19670638 O24.414 33254090 [id number] Anju Mcnamara CNM [place] [address] [place] [address] 08/11/2025 16:25:59 08/11/2025 17:46:32 Gestational diabetes mellitus 97348645 O24.414 80781043 [id number] Shawn Bradley MD [place] [address] [place] [address] 08/18/2025 09:40:51 08/18/2025 10:15:47 Gestational diabetes mellitus 01766101 O24.414 Z3A.36 73488378 [id number] [facility] [address],[place] [address] 08/18/2025 09:41:06 08/18/2025 11:24:04 Gestation period, 36 weeks 29069020 Z3A.36 3736831 cont pnv [id number] [facility] [address],[place] [address] 08/18/2025 09:41:16 08/18/2025 16:17:31 Gestational diabetes mellitus class A2 61128184 O24.414 [id number] Health Concerns Section Related Observation LastModified by Organization Detai ls LastModified Time None Recorded Concern Status LastModified by Organization Details LastModified Time None Recorded Payers Encounter Date Sequence Insurance Name Policy Number Policy Robetrs Covered Member ID Roberts Member ID Guarantor Name 08/18/2025 1 [facility] (MEDICAID HMO) [id number] Yuni Mejia [id number] Yuni Mejia Notes Date Note Type Note Provider Name and Address Organization Details Recorded Time 08/18/2025 text/html Generic HPI TemplateReported by Patient PATRIC Webb [address], [place], [address], [facility] 08/18/2025 11:23:41 OBGyn Episode Ob Episode Information Episode Created Date Number of Fetuses Patient Bloodtype Patient rh Status Prepregnancy Weight lbs Domestic Partner Domestic Partner Phone Father Name Escalation Engineer Status 03/02/20 25 1 B Positive 164 CLOSED Fetus Data First Name Last Name Admitted to NICU Weight (g) Sex Living Outcome Pediatric Complications Fetus ID Race Codes Race Delivery Type Gladis false 4025.62 9 F true Full Term 82736 Vaginal Delivery Problems Problem Notes SDH form completed 5GI consult Tachycardia Holter monitor 72 order- pt sent back on 03-27-25 Cardiology referral faxed per Dr Martínez office calling pt 04/21 to schedule consult scheduled 05/11 11:15AM Problem Name Start Date End Date Resolution Snomed Code Not e Uncomplicated moderate persistent asthma 03/02/2025 704095616 albuterol prn Abnormal placenta affecting management of mother 05/04/2025 64162116 MCI serial grow th us Iron deficiency anemia 05/25/2025 24003431 [facility] MFM tx [place] 200mg x1 HGB 10.6 Nausea and vomiting 03/02/2025 18023031 Anxiety 03/02/2025 98438134 sertralin e started 03/02/25 changed to prozac 10 on Gestational diabetes mellitus 07/08/2025 63797256 checking bs QID - ruled in GDM Referral faxed to [facility] 07/07 Frequent headache 05/03/2025 [id number] t [place] to [facility] 05/21, discharge 05/23 [facility] referral faxed 05/24 [facility] Neurology consult pending per KAJAL Pittman [facility]- Neuro [facility] unable to see pt due to insurance 05/25[facility] 07/05/25 Level US & Consult (see [facility] consult zayas recommendations ) regimen prn Imitrex 50mg for acute migraine, vitamin B2 (Riboflavin) 400mg, Coenzyme q10 300mg and magnesium oxide 200 to 600mg daily. minimize use of Excedrin or Tylenol to no more than 2-3 times a week. 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/2025 7694561 32wk growth us Jun Calculation Initial Jun [...] Weight in lbs Pre/Post Dialysis Refused Weight 158.136940785833 BP Diastolic BP Location Tested BP Systolic [...] Weight in lbs Pre/Post Dialysis Refused Weight 158.596334715032 BP Diastolic BP Location Tested BP Systolic [...] Weight in lbs Pre/Post Dialysis Refused Weight 162.846408981536 BP Diastolic BP Location Tested BP Systolic BP Type 78 123 Fetus Heart Rate Present A 148 Fetus Movement A Yes Comments Patient is having having ronny n, cramping and vaginal discharge. went to ed exam done cultures and rx sent, ?FM, await global sales executive results rfilled zofran, precautions and education f/u [...] Type Weight in lbs Pre/Post Dialysis Refused 168.128805680041 BP Diastolic BP Location Tested BP Systolic [...] Type Weight in lbs Pre/Post Dialysis Refused 169.837583459625 BP Diastolic BP Location Tested BP Systolic [...] Weight in lbs Pre/Post Dialysis Refused Weight 175.220334100677 BP Diastolic BP Location Tested BP Systolic [...] Weight in lbs Pre/Post Dialysis Refused Weight 182.707125990062 BP Diastolic BP Location Tested BP Systolic [...] Weight in lbs Pre/Post Dialysis Refused Weight 181.593524326401 BP Diastolic BP Location Tested BP Systolic BP Type 73 L arm 131 sitting Fetus Heart Rate Present Fetus Movement A Yes Comments viral URI testied neg at urg ent care, nausea resolved, efw 68%, +FM plan education and precautions f/u 2 weeks diagnosed GDM, plan grocery stock clerk, gave list reviewed protein vs carb Flowsheet Date 07/21/2025 Gibson Score Blood Edema Fundus Height Fundus Units Glucose Ketones Leukocytes Nitrite Labor Signs Protein Cervic Dilation Cervic Effacement Cervic Station Type Weight in lbs Pre/Post Dialysis Refused Weight 181.647781783976 BP Diastolic BP Location Tested BP Systolic BP Type 78 L arm 127 sitting Fetus Heart Rate Present A 150 Fetus Movement A Yes Comments rpt urine culture +FM review ed blood sugars, meets with grocery stock clerk today, precautions and education f/u 2 weeks [...] Weight in lbs Pre/Post Dialysis Refused Weight 181.592352585633 BP Diastolic BP Location Tested BP Systolic [...] Weight in lbs Pre/Post Dialysis Refused Weight 183.500813947828 BP Diastolic BP Location Tested BP Systolic [...] Type Weight in lbs Pre/Post Dialysis Refused 184.173649059760 BP Diastolic BP Location Tested BP Systolic [...] Type Weight in lbs Pre/Post Dialysis Refused 184.335191800163 BP Diastolic BP Location Tested BP Systolic [...] Type Weight in lbs Pre/Post Dialysis Refused 184.658308719171 BP Diastolic BP Location Tested BP Systolic [...] Weight in lbs Pre/Post Dialysis Refused Weight 184.918824665924 BP Diastolic BP Location Tested BP Systolic [...] Weight in lbs Pre/Post Dialysis Refused Weight 164.004621362093 BP Diastolic BP Location Tested BP Systolic [...]
--- OUTSIDE RECORDS SUMMARY | 2025-09-16 17:57 | XMS_ITS ---
Author Organization Unknown Address [address] [place] [phone] Phone Care Team Providers Care Sales And Marketing Professional Name Role Phone MARK Fernandez Attending Unavailable [...] em Smoking History Never smoker (Never Smoked) 911892130 SNOMED CT Sex Female Assessment You had [...] 6002 SNOMED-CT UNSPECIFIED ABDOMINAL PAIN active 215 50705 SNOMED-CT Allergies and Adverse Reactions Allergy Substance Reaction Severity Start Date Concern Status Co de Code System AMOXICILLIN Active 723 RxNorm TERBUTALINE Active 41491 RxNorm Plan of Treatment Stress Test Treadmill 01/21/2025 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
--- OUTSIDE RECORDS SUMMARY | 2025-09-16 17:57 | XMS_ITS ---
Author Organization Unknown Address [address] [place] [phone] Phone Care Team Providers Care Certified Green Building Engineer Name Role Phone MARK Fernandez Attending Unavailable [...] em Smoking History Never smoker (Never Smoked) 877897149 SNOMED CT Sex Female Assessment You had [...] 6002 SNOMED-CT UNSPECIFIED ABDOMINAL PAIN active 215 43529 SNOMED-CT Allergies and Adverse Reactions Allergy Substance Reaction Severity Start Date Concern Status Co de Code System AMOXICILLIN Active 723 RxNorm TERBUTALINE Active 26753 RxNorm Plan of Treatment Stress Test Treadmill 01/21/2025 [place] Leverman Consult 04/27/2025 Encounters Encounter Diagnosis Start Date Code Code Sys tem Injury, poisoning and certai n other consequences of external causes complicating the puerperium 05/05/2024 SNOMED-CT Personal Care Team Section Performer Name [...]
--- OUTSIDE RECORDS SUMMARY | 2025-09-16 17:57 | XMS_ITS ---
Author Organization Unknown Address [address] [place] [address] [phone] Phone Care Team Providers Care Embossing Press Operator Apprentice Name Role Phone RUFUS SEGAL Attending Unavailable [...] em Smoking History Never smoker (Never Smoked) 060678292 SNOMED CT Sex Female Assessment You had [...] 6002 SNOMED-CT UNSPECIFIED ABDOMINAL PAIN active 215 03194 SNOMED-CT Allergies and Adverse Reactions Allergy Substance Reaction Severity Start Date Concern Status Co de Code System AMOXICILLIN Active 723 RxNorm TERBUTALINE Active 67447 RxNorm Plan of Treatment Stress Test Treadmill 01/21/2025 Billing Analyst Consult 04/27/2025 Encounters Encounter Diagnosis Start Date Code Code Sys tem Acute sinusitis, unspecified 07/31/2024 SNOMED-CT Personal Care Team Section Performer Name [...]
--- OUTSIDE RECORDS SUMMARY | 2025-09-16 18:17 | XMS_ITS ---
Author Organization Unknown Address [address] [place] [phone] Phone Care Team Providers Care Telecommunications Field Engineer Name Role Phone LADONNA SCHUMACHER Attending [...] Quang Decker M.D. LC: GABRIEL Report ID: [id number] Reading Location: [place] [address] Social History Type Status Start Date End Date Code Code Syst em Smoking History Never smoker (Never Smoked) 943523461 SNOMED CT Sex Female Assessment You had [...] 6002 SNOMED-CT UNSPECIFIED ABDOMINAL PAIN active 215 31301 SNOMED-CT Allergies and Adverse Reactions Allergy Substance Reaction Severity Start Date Concern Status Co de Code System AMOXICILLIN Active 723 RxNorm TERBUTALINE Active 34288 RxNorm Plan of Treatment Stress Test Treadmill 01/21/2025 Soliciting Freight Agent Consult 04/27/2025 Encounters Encounter Diagnosis Start Date [...]
--- OUTSIDE RECORDS SUMMARY | 2025-09-16 18:17 | XMS_ITS | Clinical Summary ---
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 Name Role Phone Steph Hightower MD Unavailable [...] Department Care Team Description 09/12/2025 12:49 PM EMPLOYMENT COUNSELOR - 09/12/2025 3:12 PM [facility] Emergency Room [address] [place] [address] [place] [address] Emy Irene MD Chest Pain Discharge Disposition: Home or Self Care (Routine Discharge) 09/12/2025 9:10 AM EMPLOYMENT COUNSELOR - 09/12/2025 11:05 AM [facility] Room [address] [place] [address] [place] [address] Emy Irene MD Headache; Vaginal Bleeding (Post-) Discharge Disposition: Home or Self Care (Routine Discharge) 09/12/2025 Travel 08/29/2025 7:07 PM EMPLOYMENT COUNSELOR - 08/29/2025 9:39 PM [facility] Hospital En[facility] [address] [place] [address] [place] [address] Lester Valle MD (Headache) Discharge Disposition: Home or Self Care (Routine Discharge) 08/29/2025 Travel 08/18/2025 7:48 PM CDT - 08/18/2025 9:22 PM [facility] Emergency Room [address] [place] [address] [place] [address] Nacho Breen MD Chest Pain Discharge Disposition: Home or Self Care (Routine Discharge) 08/18/2025 Travel 08/15/2025 10:59 AM CDT - 08/15/2025 1:56 PM CDT [facility] [address] [place] [address] [place] [address] Yeni Pinto MD Discharge Disposition: Home or Self Care (Routine Discharge) 08/14/2025 11:00 AM CDT - 08/14/2025 11:59 AM CDT [facility] [address] [place] [address] [place] [address] Naldo Cadet DO Sore Throat Discharge Disposition: Home or Self Care (Routine Discharge) 08/14/2025 Travel 07/28/2025 Telephone [facility] [address] [place] [address] [place] [address] Марина Grace MD Problem (Pt called stating [...] - 07/23/2025 1:47 PM CDT [facility] [address] [place] [address] [place] [address] Марина Grace MD Discharge Disposition: Home or Self Care (Routine Discharge) 07/04/2025 12:02 PM CDT - 07/04/2025 1:21 PM CDT [facility] [address] [place] [address] [place] [address] Naldo Cadet DO Flu Like Symptoms Discharge Disposition: Home or Self Care (Routine Discharge) 07/04/2025 Travel 06/24/2025 10:35 PM CDT - 06/25/2025 12:07 AM CDT [facility] [address] [place] [address] [place] [address] Nate Alvarez MD Abdominal Pain Discharge Disposition: Home or Self Care (Routine Discharge) 06/24/2025 Travel 06/20/2025 3:59 PM CDT - 06/20/2025 5:51 PM CDT Hospital [facility] [address] [place] [address] Lester Valle MD Abdominal Pain Discharge Disposition: [...] Recorded Patient Health Questionnaire-2 Score 0 05/13/2024 [facility] [place] of Occupat ional Health - Occupational Stress [...] How often do you attend chur or orthodox services? 1 to 4 times per year 08/29/2025 Do you belong to any clubs o r organizations such as methodist groups, unions, fraternal or athletic groups, or [...] and heating? Not hard at all 08/29/2025 [facility] of Occupat ional Health - Occupational Stress [...] any time in the past 12 m [facility], were you homeless or living in a halfway (including now)? No 08/29/2025 B1300 Health Literacy Answer Date Recor ded How often do you need to hav e someone help you when you read instructions, pamphlets, or other written material from your doctor or pharmacy? Never 08/29/2025 [facility] Utilities Answer Date Recorded In the [...] Comments Blood Pressure 152/94 09/12/2025 3:00 PM EMPLOYMENT COUNSELOR Pulse 59 09/12/2025 3:00 PM EMPLOYMENT COUNSELOR Temperature 36.7 C (98 F) 09/12/2025 12:46 PM EMPLOYMENT COUNSELOR Respiratory Rate 15 09/12/2025 3:00 PM EMPLOYMENT COUNSELOR Oxygen Saturation 95% 09/12/2025 3:00 PM EMPLOYMENT COUNSELOR Inhaled Oxygen Concentration - - Weight 77.1 kg (170 lb) 09/12/2025 12:46 PM EMPLOYMENT COUNSELOR Height 165.1 cm (5' 5) 09/12/2025 12:46 PM EMPLOYMENT COUNSELOR Body Mass Index 28.29 09/12/2025 12:46 PM EMPLOYMENT COUNSELOR Plan of Treatment Health Maintenance Due Date [...] CHEST PE PROTOCOL STAT 09/12/2025 2:00 PM EMPLOYMENT COUNSELOR PRO-BRAIN NATRIURETIC PEPTIDE Routine 09/12/2025 1:10 PM EMPLOYMENT COUNSELOR BASIC METABOLIC PANEL STAT 09/12/2025 1:10 PM EMPLOYMENT COUNSELOR HC CBC W/O DIFF STAT 09/12/2025 1:10 PM EMPLOYMENT COUNSELOR TROPONIN, QUANT STAT 09/12/2025 1:10 PM EMPLOYMENT COUNSELOR D-DIMER, QUANTITATIVE STAT 09/12/2025 1:10 PM EMPLOYMENT COUNSELOR ECG 12-LEAD STAT 09/12/2025 12:50 PM EMPLOYMENT COUNSELOR ECG 12-LEAD STAT 09/12/2025 10:28 AM EMPLOYMENT COUNSELOR URINALYSIS STAT 09/12/2025 9:56 AM EMPLOYMENT COUNSELOR PROTEIN CREAT RATIO URINE STAT 09/12/2025 9:56 AM EMPLOYMENT COUNSELOR COMPREHENSIVE METABOLIC PANEL STAT 09/12/2025 9:37 AM EMPLOYMENT COUNSELOR HC CBC AUTO W/AUTO DIFF STAT 09/12/2025 9:37 AM EMPLOYMENT COUNSELOR HC COMPREHENSIVE METABOL PANEL STAT 08/29/2025 8:34 PM EMPLOYMENT COUNSELOR Headache HC CBC AUTO W/AUTO DIFF STAT 08/29/2025 8:34 PM EMPLOYMENT COUNSELOR Headache ECG 12-LEAD STAT 08/29/2025 8:26 PM EMPLOYMENT COUNSELOR Headache CORONAVIRUS (COVID-19) ANTIGEN STAT 08/29/2025 8:16 PM EMPLOYMENT COUNSELOR Headache HC RSV AG QL STAT 08/29/2025 8:16 PM EMPLOYMENT COUNSELOR Headache INFLUENZA A & B STAT 08/29/2025 8:16 PM EMPLOYMENT COUNSELOR Headache POCT GLUCOSE - DOCKED DEVICE Routine 08/29/2025 8:02 PM EMPLOYMENT COUNSELOR HC URINALYSIS AUTO W/MICRO STAT 08/29/2025 7:11 PM EMPLOYMENT COUNSELOR Headache NONSTRESS TEST Routine 08/29/2025 7:09 PM EMPLOYMENT COUNSELOR Headache XR CHEST PORTABLE STAT 08/18/2025 8:1 [...] CTA CHEST PE PROTOCOL (09/12/2025 2:00 PM EMPLOYMENT COUNSELOR) Anatomical Region Laterality Modality Chest Computed Tomogra phy 09/12/2025 2:07 PM EMPLOYMENT COUNSELOR Impressions 09/12/2025 2:10 PM EMPLOYMENT COUNSELOR IMPRESSION: 1. No pulmonary thromboembolic disease. 2. Small bilateral pleural effusions. Referred By: Interpreted By: Nate Root MD, 09/12/2025 2:07 PM Narrative 09/12/2025 2:10 PM EMPLOYMENT COUNSELOR [place] [address] [facility] [place] [address] EXAMINATION: CTA CHEST PE PROTOCOL, 09/12/2025 2:07 [...] and headache. 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 [address] EXAMINATION: CTA CHEST PE PROTOCOL, 09/12/2025 2:07 [...] and headache. 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 [...] t * TROPONIN, QUANT (09/12/2025 1:10 PM EMPLOYMENT COUNSELOR) [facility] TROPONIN I HIGH SENSITIVITY 6 0 - 51 ng/L 09/12/2025 1:36 PM EMPLOYMENT COUNSELOR [facility] BLOOD VENOUS BLOOD SPECIMEN / Unknown 09/12/2025 1:10 PM EMPLOYMENT COUNSELOR us Emy Irene MD LABORATORY Final Resul t Performing Organization Address City/[facility]/ZIP Co de Phone Number [facility] [address] [place] [id number], * (ABNORMAL) D-DIMER, QUANTITATIVE (09/12/2025 1:10 PM EMPLOYMENT COUNSELOR) [facility] D-DIMER 3,465(H) 0 - 500 ng{FEU}/mL 09/12/2025 1:39 PM EMPLOYMENT COUNSELOR [facility] Comment: CALLED TO EZEKIEL KIRAN AT [...] BLOOD SPECIMEN / Unknown 09/12/2025 1:10 PM EMPLOYMENT COUNSELOR us Emy Irene MD LABORATORY Final Resul t Performing Organization Address City/[facility]/ZIP Co de Phone Number [facility] [address] [place] [address], [place] [phone] * (ABNORMAL) CBC, AUTO, NO DIFF (09/12/2025 1:10 PM EMPLOYMENT COUNSELOR) [facility] WBC 8.21 4.00 - 10.80 x10'3/uL 09/12/2025 1:17 PM EMPLOYMENT COUNSELOR [facility] RBC 4.34 4.10 - 5.40 x10'6/uL 09/12/2025 1:17 PM EMPLOYMENT COUNSELOR [facility] HGB 11.2(L) 12.0 - 16.0 G/DL 09/12/2025 1:17 PM EMPLOYMENT COUNSELOR [facility] HCT 35.9(L) 36.0 - 47.0 % 09/12/2025 1:17 PM [facility] MCV 82.7 78.0 - 100.0 FL 09/12/2025 1:17 PM EMPLOYMENT COUNSELOR [facility] MCH 25.8(L) 27.0 - 31.0 PG 09/12/2025 1:17 PM EMPLOYMENT COUNSELOR [facility] MCHC 31.2(L) 33.0 - 36.0 G/DL 09/12/2025 1:17 PM EMPLOYMENT COUNSELOR [facility] RDW 14.6(H) 11.5 - 14.5 % 09/12/2025 1:17 PM [facility] PLT 320 150 - 350 x10'3/uL 09/12/2025 1:17 PM [facility] MPV 9.2 7.4 - 10.4 FL 09/12/2025 1:17 PM [facility] BLOOD VENOUS BLOOD SPECIMEN / Unknown 09/12/2025 1:10 PM EMPLOYMENT COUNSELOR us Emy Irene MD LABORATORY Final Resul t [facility] [address] [place] [address], * (ABNORMAL) BASIC METABOLIC PANEL (09/12/2025 1:10 PM EMPLOYMENT COUNSELOR) SODIUM S/P/B 145 136 - 145 MMOL/L 09/12/2025 1:36 PM EMPLOYMENT COUNSELOR [facility] POTASSIUM S/P/B 3.7 3.5 - 5.1 MMOL/L 09/12/2025 1:36 PM [facility] CHLORIDE S/P/B 109(H) 98 - 107 MMOL/L 09/12/2025 1:36 PM [facility] CO2 25.5 21.0 - 32.0 MMOL/L 09/12/2025 1:36 PM [facility] GLUCOSE 95 70 - 99 MG/DL 09/12/2025 1:36 PM [facility] Comment: FASTING GLUCOSE 100 TO 125 MG/DL IS CONSISTENT WITH IMPAIRED FASTING GLUCOSE. FASTING GLUCOSE >125 MG/DL IS CONSISTENT WITH DIABETES. RANDOM GLUCOSE >200 MG/DL WITH HYPERGLYCEMIC SYMPTOMS IS CONSISTENT WITH DIABETES. PER ADA GUIDELINES BUN 15 6 - 24 MG/DL 09/12/2025 1:36 PM [facility] CREATININE S/P/B 0.57 0.55 - 1.02 MG/DL 09/12/2025 1:36 PM [facility] CALCIUM S/P/B 9.0 8.4 - 10.5 MG/DL 09/12/2025 1:36 PM [facility] ANION GAP 10.5 5.0 - 15.0 MMOL/L 09/12/2025 1:36 PM [facility] OSMOLALITY (CALC) 301 MOSM/KG 025 1:36 PM [facility] Comment:REFERENCE RANGE NOT ESTABLISHED GFR ESTIMATE >90 >89 ML/MIN/1. 73 M2 09/12/2025 1:36 PM [facility] GFR NOTES GFR REFERENCE S: 09/12/2025 1:36 PM [facility] Comment: THE ESTIMATED GFR [...] BLOOD SPECIMEN / Unknown 09/12/2025 1:10 PM EMPLOYMENT COUNSELOR us Emy Irene MD LABORATORY Final Resul t Performing Organization Address City/[facility]/ZIP Co de Phone Number [facility] [address] [place] [address], * PRO-BRAIN NATRIURETIC PEPTIDE (09/12/2025 1:10 PM EMPLOYMENT COUNSELOR) PRO-B TYPE NATRIURETIC PEPTIDE 19 <125 PG/ML 09/12/2025 2:48 PM EMPLOYMENT COUNSELOR [facility] Comment: CUT POINTS ESTABLISHED BY INTERNATIONAL [...] BLOOD SPECIMEN / Unknown 09/12/2025 1:10 PM EMPLOYMENT COUNSELOR us Emy Irene MD LABORATORY Final Resul t Performing Organization Address [facility] Co de Phone Number [facility] [address] [place] [address], [place] [phone] * ECG 12 lead (09/12/2025 12:50 PM EMPLOYMENT COUNSELOR) Only the most recent of4 resultswithin the time period is included. 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[id number] Requested By: EMY IRENE Order Number: [id number] Reading MD: Steph Hightower Measurements Intervals [place] Rate: 56 P: 64 VA: 152 QRS: 55 QRSD: 81 T: 53 QT: 406 QTc: 393 Interpretive Statements SINUS BRADYCARDIA WITH SINUS ARRHYTHMIA OYMENT COUNSELOR us Emy Irene MD ECG ORDERABLES Final Resul t [facility] * (ABNORMAL) URINALYSIS (09/12/2025 9:56 AM EMPLOYMENT COUNSELOR) COLOR (U) YELLOW 09/12/2025 10:10 AM EMPLOYMENT COUNSELOR [facility] TRANSPARENCY SLIGHTLY CLOUDY 09/12/2025 10:10 AM [facility] SPECIFIC GRAVITY (U) 1.020 1.000 - 1.025 09/12/2025 10:10 AM [facility] U PH 6.0 5.0 - 8.0 09/12/2025 10:10 AM [facility] LEUKOCYTES (U) 1+(A) NEGATIVE 09/12/2025 10:10 AM EMPLOYMENT COUNSELOR [facility] NITRITES NEGATIVE NEGATIVE 09/12/2025 10:10 AM [facility] PROTEIN RANDOM (U) TRACE(A) NEGATIVE 09/12/2025 10:10 AM [facility] GLUCOSE (U) NEGATIVE NEGATIVE 09/12/2025 10:10 AM [facility] KETONES MG/DL (U) NEGATIVE NEGATIVE 09/12/2025 10:10 AM [facility] UROBILINOGEN 0.2 <1.0 EU/DL 09/12/2025 10:10 AM [facility] BILIRUBIN (U) NEGATIVE NEGATIVE 09/12/2025 10:10 AM [facility] BLOOD (U) 3+(A) NEGATIVE 09/12/2025 10:10 AM [facility] WBC/HPF 5-10(A) 0 - 5 /HPF 09/12/2025 10:10 AM [facility] RBC/HPF 10-20(A) 0 - 5 /HPF 09/12/2025 10:10 AM [facility] EPI/LPF MODERATE /LPF 09/12/2025 10:10 AM [facility] BACTERIA (U) 2+ /HPF 09/12/2025 10:10 AM [facility] MUCUS PRESENT 09/12/2025 10:10 AM [facility] URINE URINE SPECIMEN OBTAINED BY CLEAN CATCH PROCEDURE / Unknown 09/12/2025 9:56 AM EMPLOYMENT COUNSELOR us Emy Irene MD URINE ORDERABLES Final Resu lt [facility] [address] [place] [address], * (ABNORMAL) PROTEIN CREAT RATIO URINE (09/12/2025 9:56 AM EMPLOYMENT COUNSELOR) PROTEIN URINE TOTAL RANDOM 21.0(H) <11.9 MG/DL 09/12/2025 10:14 AM EMPLOYMENT COUNSELOR [facility] CREATININE RANDOM (U) 143.0 MG/DL 09/12/2025 10:14 AM [facility] Comment:REFERENCE RANGE NOT ESTABLISHED PROTEIN/CREATINI NE RATIO 0.1 09/12/2025 10:14 AM [facility] Comment:CALCULATED VALUE. [facility] REFERENCE RANGE HAS NOT BEEN ESTABLISHED. URINE URINE SPECIMEN OBTAINED BY CLEAN CATCH PROCEDURE / Unknown 09/12/2025 9:56 AM EMPLOYMENT COUNSELOR us Emy Irene MD URINE ORDERABLES Final Resu lt [facility] [address] [place] [address], * (ABNORMAL) COMPREHENSIVE METABOLIC PANEL (09/12/2025 9:37 AM EMPLOYMENT COUNSELOR) SODIUM S/P/B 143 136 - 145 MMOL/L 09/12/2025 9:59 AM [facility] POTASSIUM S/P/B 4.1 3.5 - 5.1 MMOL/L 09/12/2025 9:59 AM [facility] CHLORIDE S/P/B 106 98 - 107 MMOL/L 09/12/2025 9:59 AM [facility] CO2 26.8 21.0 - 32.0 MMOL/L 09/12/2025 9:59 AM [facility] GLUCOSE 93 70 - 99 MG/DL 09/12/2025 9:59 AM [facility] Comment: FASTING GLUCOSE 100 TO 125 MG/DL IS CONSISTENT WITH IMPAIRED FASTING GLUCOSE. FASTING GLUCOSE >125 MG/DL IS CONSISTENT WITH DIABETES. RANDOM GLUCOSE >200 MG/DL WITH HYPERGLYCEMIC SYMPTOMS IS CONSISTENT WITH DIABETES. PER ADA GUIDELINES BUN 18 6 - 24 MG/DL 09/12/2025 9:59 AM [facility] CREATININE S/P/B 0.66 0.55 - 1.02 MG/DL 09/12/2025 9:59 AM [facility] CALCIUM S/P/B 9.3 8.4 - 10.5 MG/DL 09/12/2025 9:59 AM [facility] BILIRUBIN TOTAL S/P/B 0.3 0.2 - 1.0 MG/DL 09/12/2025 9:59 AM [facility] Comment: THIS ASSAY IS NOT RECOMMENDED FOR PATIENTS UNDERGOING TREATMENT WITH ELTROMBOPAG DUE TO THE POTENTIAL FOR FALSELY ELEVATED RESULTS. ALKALINE PHOSPHATASE S/P/B 135(H) 37 - 98 U/L 09/12/2025 9:59 AM [facility] AST 21 15 - 37 U/L 09/12/2025 9:59 AM [facility] ALT 52 14 - 59 U/L 09/12/2025 9:59 AM [facility] TOTAL PROTEIN S/P/B 7.3 6.4 - 8.2 G/DL 09/12/2025 9:59 AM [facility] ALBUMIN S/P/B 2.9(L) 3.4 - 5.0 G/DL 09/12/2025 9:59 AM [facility] ANION GAP 10.2 5.0 - 15.0 MMOL/L 09/12/2025 9:59 AM [facility] OSMOLALITY (CALC) 298 MOSM/KG 025 9:59 AM [facility] Comment:REFERENCE RANGE NOT ESTABLISHED GFR ESTIMATE >90 >89 ML/MIN/1. 73 M2 09/12/2025 9:59 AM [facility] GFR NOTES GFR REFERENCE S: 09/12/2025 9:59 AM [facility] Comment: THE ESTIMATED GFR [...] BLOOD SPECIMEN / Unknown 09/12/2025 9:37 AM EMPLOYMENT COUNSELOR us Emy Irene MD LABORATORY Final Resul t [facility] [address] [place] [address], * (ABNORMAL) CBC W/DIFF AUTOMATED (09/12/2025 9:37 AM EMPLOYMENT COUNSELOR) WBC 7.55 4.00 - 10.80 x10'3/uL 09/12/2025 9:43 AM EMPLOYMENT COUNSELOR [facility] RBC 4.55 4.10 - 5.40 x10'6/uL 09/12/2025 9:43 AM [facility] HGB 11.6(L) 12.0 - 16.0 G/DL 09/12/2025 9:43 AM [facility] HCT 37.5 36.0 - 47.0 % 09/12/2025 9:43 AM [facility] MCV 82.4 78.0 - 100.0 FL 09/12/2025 9:43 AM EMPLOYMENT COUNSELOR [facility] MCH 25.5(L) 27.0 - 31.0 PG 09/12/2025 9:43 AM [facility] MCHC 30.9(L) 33.0 - 36.0 G/DL 09/12/2025 9:43 AM [facility] RDW 14.6(H) 11.5 - 14.5 % 09/12/2025 9:43 AM EMPLOYMENT COUNSELOR [facility] PLT 323 150 - 350 x10'3/uL 09/12/2025 9:43 AM [facility] MPV 9.0 7.4 - 10.4 FL 09/12/2025 9:43 AM [facility] CBC COMMENT NORMAL REFERENCE RANGE NOT ESTABLISHED FOR THE PROPORTIONAL LEUKOCYTE DIFFERENTIAL. 09/12/2025 9:43 AM [facility] NEUTROPHILS % 57.8 % 09/12/2025 9:43 AM [facility] LYMPHOCYTES % 25.0 % 09/12/2025 9:43 AM [facility] MONOCYTES % 9.4 % 09/12/2025 9:43 AM EMPLOYMENT COUNSELOR [facility] EOSINOPHILS % 6.9 % 09/12/2025 9:43 AM EMPLOYMENT COUNSELOR [facility] BASOPHILS % 0.4 % 09/12/2025 9:43 AM EMPLOYMENT COUNSELOR [facility] IMMATURE GRANS % 0.5 % 09/12/20 25 9:43 AM EMPLOYMENT COUNSELOR [facility] NRBC % 0.0 % 09/12/2025 9:43 AM EMPLOYMENT COUNSELOR [facility] ABS. NEUTROPHILS 4.36 1.60 - 8.30 x10'3/uL 09/12/2025 9:43 AM EMPLOYMENT COUNSELOR [facility] ABS. LYMPHOCYTES 1.89 0.80 - 4.70 x10'3/uL 09/12/2025 9:43 AM EMPLOYMENT COUNSELOR [facility] ABS. MONOCYTES 0.71 0.00 - 1.50 x10'3/uL 09/12/2025 9:43 AM EMPLOYMENT COUNSELOR [facility] ABS. EOSINOPHILS 0.52(H) 0.00 - 0.40 x10'3/uL 09/12/2025 9:43 AM EMPLOYMENT COUNSELOR [facility] ABS. BASOPHILS 0.03 0.00 - 0.20 x10'3/uL 09/12/2025 9:43 AM EMPLOYMENT COUNSELOR [facility] ABS. IMMATURE GRANULOCYTES 0.04(H) 0.00 - 0.03 x10'3/uL 09/12/2025 9:43 AM EMPLOYMENT COUNSELOR [facility] ABS. NUCLEATED RBC'S 0.00 0.00 - 0.01 x10'3/uL 09/12/2025 9:43 AM EMPLOYMENT COUNSELOR [facility] BLOOD VENOUS BLOOD SPECIMEN / Unknown 09/12/2025 9:37 AM EMPLOYMENT COUNSELOR us Emy Irene MD LABORATORY Final Resul t [facility] [address] [place] [address], * (ABNORMAL) COMPREHENSIVE METABOLIC PANEL (08/29/2025 8:34 PM EMPLOYMENT COUNSELOR) Only the most recent of2 resultswithin the time period is included. SODIUM S/P/B 136 136 - 145 MMOL/L 08/29/2025 8:55 PM [facility] POTASSIUM S/P/B 3.6 3.5 - 5.1 MMOL/L 08/29/2025 8:55 PM [facility] CHLORIDE S/P/B 102 98 - 107 MMOL/L 08/29/2025 8:55 PM [facility] CO2 23.5 21.0 - 32.0 MMOL/L 08/29/2025 8:55 PM [facility] GLUCOSE 123(H) 70 - 99 MG/DL 08/29/2025 8:55 PM [facility] Comment: FASTING GLUCOSE 100 TO 125 MG/DL IS CONSISTENT WITH IMPAIRED FASTING GLUCOSE. FASTING GLUCOSE >125 MG/DL IS CONSISTENT WITH DIABETES. RANDOM GLUCOSE >200 MG/DL WITH HYPERGLYCEMIC SYMPTOMS IS CONSISTENT WITH DIABETES. PER ADA GUIDELINES BUN 10 6 - 24 MG/DL 08/29/2025 8:55 PM [facility] CREATININE S/P/B 0.48(L) 0.55 - 1.02 MG/DL 08/29/2025 8:55 PM [facility] CALCIUM S/P/B 9.3 8.4 - 10.5 MG/DL 08/29/2025 8:55 PM [facility] BILIRUBIN TOTAL S/P/B 0.2 0.2 - 1.0 MG/DL 08/29/2025 8:55 PM [facility] Comment: THIS ASSAY IS NOT RECOMMENDED FOR PATIENTS UNDERGOING TREATMENT WITH ELTROMBOPAG DUE TO THE POTENTIAL FOR FALSELY ELEVATED RESULTS. ALKALINE PHOSPHATASE S/P/B 137(H) 37 - 98 U/L 08/29/2025 8:55 PM [facility] AST 13(L) 15 - 37 U/L 08/29/2025 8:55 PM [facility] ALT 14 14 - 59 U/L 08/29/2025 8:55 PM [facility] TOTAL PROTEIN S/P/B 6.1(L) 6.4 - 8.2 G/DL 08/29/2025 8:55 PM [employer] [facility] ALBUMIN S/P/B 2.4(L) 3.4 - 5.0 G/DL 08/29/2025 8:55 PM [employer] [facility] ANION GAP 10.5 5.0 - 15.0 MMOL/L 08/29/2025 8:55 PM [employer] [facility] OSMOLALITY (CALC) 282 MOSM/KG 025 8:55 PM [facility] Comment:REFERENCE RANGE NOT ESTABLISHED GFR ESTIMATE >90 >89 ML/MIN/1. 73 M2 08/29/2025 8:55 PM [facility] GFR NOTES GFR REFERENCE S: 08/29/2025 8:55 PM [facility] Comment: THE ESTIMATED GFR [...] FAILURE: <15 ml/min/1.73 m2 08/29/2025 8:34 PM [employer] Lester Valle MD LABORATORY Final Result [facility] [address] [place] [address], * (ABNORMAL) CBC W/DIFF AUTOMATED (08/29/2025 8:34 PM [employer]) Only the most recent of2 resultswithin the time period is included. WBC 8.72 4.00 - 10.80 x10'3/uL 08/29/2025 8:39 PM [employer] [facility] RBC 3.94(L) 4.10 - 5.40 x10'6/uL 08/29/2025 8:39 PM [employer] [facility] HGB 10.2(L) 12.0 - 16.0 G/DL 08/29/2025 8:39 PM [facility] HCT 32.0(L) 36.0 - 47.0 % 08/29/2025 8:39 PM [facility] MCV 81.2 78.0 - 100.0 FL 08/29/2025 8:39 PM [employer] [facility] MCH 25.9(L) 27.0 - 31.0 PG 08/29/2025 8:39 PM [facility] MCHC 31.9(L) 33.0 - 36.0 G/DL 08/29/2025 8:39 PM [facility] RDW 14.3 11.5 - 14.5 % 08/29/2025 8:39 PM [facility] PLT 217 150 - 350 x10'3/uL 08/29/2025 8:39 PM [facility] MPV 9.5 7.4 - 10.4 FL 08/29/2025 8:39 PM [facility] [facility] CBC COMMENT NORMAL REFERENCE RANGE NOT ESTABLISHED FOR THE PROPORTIONAL LEUKOCYTE DIFFERENTIAL. 08/29/2025 8:39 PM [facility] NEUTROPHILS % 63.2 % 08/29/2025 8:39 PM [facility] LYMPHOCYTES % 21.4 % 08/29/2025 8:39 PM [facility] MONOCYTES % 12.5 % 08/29/2025 8:39 PM [facility] EOSINOPHILS % 1.1 % 08/29/2025 8:39 PM [facility] BASOPHILS % 0.1 % 08/29/2025 8:39 PM [facility] IMMATURE GRANS % 1.7 % 08/29/20 8:39 PM EMPLOYMENT COUNSELOR [facility] NRBC % 0.0 % 08/29/2025 8:39 PM [facility] ABS. NEUTROPHILS 5.50 1.60 - 8.30 x10'3/uL 08/29/2025 8:39 PM EMPLOYMENT COUNSELOR [facility] ABS. LYMPHOCYTES 1.87 0.80 - 4.70 x10'3/uL 08/29/2025 8:39 PM EMPLOYMENT COUNSELOR [facility] ABS. MONOCYTES 1.09 0.00 - 1.50 x10'3/uL 08/29/2025 8:39 PM EMPLOYMENT COUNSELOR [facility] ABS. EOSINOPHILS 0.10 0.00 - 0.40 x10'3/uL 08/29/2025 8:39 PM EMPLOYMENT COUNSELOR [facility] ABS. BASOPHILS 0.01 0.00 - 0.20 x10'3/uL 08/29/2025 8:39 PM EMPLOYMENT COUNSELOR [facility] ABS. IMMATURE GRANULOCYTES 0.15(H) 0.00 - 0.03 x10'3/uL 08/29/2025 8:39 PM EMPLOYMENT COUNSELOR [facility] ABS. NUCLEATED RBC'S 0.00 0.00 - 0.01 x10'3/uL 08/29/2025 8:39 PM EMPLOYMENT COUNSELOR [facility] 08/29/2025 8:34 PM EMPLOYMENT COUNSELOR Lester Valle MD LABORATORY Final Result [facility] [address] [place] [address], * CORONAVIRUS (COVID-19) ANTIGEN (08/29/2025 8:16 PM EMPLOYMENT COUNSELOR) Only the most recent of3 resultswithin the time period is included. CORONAVIRUS ANTIGEN IA NEGATIVE NEGATIVE 08/29/2025 8:55 PM EMPLOYMENT COUNSELOR [facility] Comment: NEGATIVE RESULTS DO NOT [...] LABORATORIES. SPECIMEN TYPE NASAL 08/29/2025 8:34 PM EMPLOYMENT COUNSELOR [facility] NASAL NASAL STRUCTURE / Unknown 08/29/2025 8:16 PM EMPLOYMENT COUNSELOR us Lester Valle MD MICROBIOLOGY - GENERAL ORDERA BLES Final Result Performing Organization Address [facility] de Phone Number [place] [phone], * INFLUENZA A & B (08/29/2025 8:16 PM EMPLOYMENT COUNSELOR) Only the most recent of3 resultswithin the time period is included. SPECIMEN TYPE (INFLUENZA) NASAL 08/29/2025 8:21 PM EMPLOYMENT COUNSELOR [facility] INFLUENZA A NEGATIVE NEGATIVE 08/29/2025 8:49 PM EMPLOYMENT COUNSELOR [facility] INFLUENZA B NEGATIVE NEGATIVE 08/29/2025 8:49 PM EMPLOYMENT COUNSELOR [facility] Comment: A NEGATIVE RESULT DOES NOT EXCLUDE INFLUENZA VIRUS INFECTION. IF INFLUENZA IS CIRCULATING IN YOUR COMMUNITY, A DIAGNOSIS OF INFLUENZA SHOULD BE CONSIDERED BASED ON A PATIENT'S CLINICAL PRESENTATION AND EMPIRIC ANTIVIRAL TREATMENT SHOULD BE CONSIDERED IF INDICATED. NASAL STRUCTURE / Unknown 08/29/2025 8:16 PM EMPLOYMENT COUNSELOR us Lester Valle MD MICROBIOLOGY - GENERAL ORDERA BLES Final Result Performing Organization Address [facility] Co de Phone Number [facility] [address] [place] [address], * RESP SYNCYTIAL VIRUS (08/29/2025 8:16 PM EMPLOYMENT COUNSELOR) Only the most recent of3 resultswithin the time period is included. SPECIMEN TYPE NASOPHARYNGEAL SWAB 08/29/2025 8:21 PM EMPLOYMENT COUNSELOR [facility] RSV NEGATIVE NEGATIVE 08/29/2025 8:49 PM EMPLOYMENT COUNSELOR [facility] NASOPHARYNGEAL SWAB / Unknown 08/29/2025 8:16 PM EMPLOYMENT COUNSELOR Lester Valle MD MICROBIOLOGY - GENERAL ORDERA BLES Final Result Performing Organization Address [facility]/ZIP Co de Phone Number [facility] [address] [place] [address], [place] [phone] * (ABNORMAL) POCT glucose (08/29/2025 8:02 PM EMPLOYMENT COUNSELOR) Only the most recent of2 resultswithin the time period is included. GLUCOSE POC 128(H) 70 - 99 MG/DL 08/29/2025 8:04 PM EMPLOYMENT COUNSELOR [facility] 08/29/2025 8:02 PM EMPLOYMENT COUNSELOR Lester Valle MD POCT ORDERABLES - DEVICE Zully l Result Performing Organization Address [facility] [place] [address], * (ABNORMAL) URINALYSIS (08/29/2025 7:11 PM EMPLOYMENT COUNSELOR) Only the most recent of7 resultswithin the time period is included. COLOR (U) YELLOW 08/29/2025 7:26 PM EMPLOYMENT COUNSELOR [facility] TRANSPARENCY CLEAR 08/29/2025 7:26 PM EMPLOYMENT COUNSELOR [facility] SPECIFIC GRAVITY (U) 1.030(H) 1.000 - 1.025 08/29/2025 7:26 PM EMPLOYMENT COUNSELOR [facility] Comment:EQUAL TO OR GREATER THAN U PH 6.0 5.0 - 8.0 08/29/2025 7:26 PM EMPLOYMENT COUNSELOR [facility] LEUKOCYTES (U) NEGATIVE NEGATIVE 08/29/2025 7:26 PM EMPLOYMENT COUNSELOR [facility] NITRITES NEGATIVE NEGATIVE 08/29/2025 7:26 PM [facility] PROTEIN RANDOM (U) TRACE(A) NEGATIVE 08/29/2025 7:26 PM EMPLOYMENT COUNSELOR [facility] GLUCOSE (U) NEGATIVE NEGATIVE 08/29/2025 7:26 PM EMPLOYMENT COUNSELOR [facility] KETONES MG/DL (U) TRACE(A) NEGATIVE 08/29/2025 7:26 PM EMPLOYMENT COUNSELOR [facility] UROBILINOGEN 1.0(H) <1.0 EU/DL 08/29/2025 7:26 PM [facility] BILIRUBIN (U) NEGATIVE NEGATIVE 08/29/2025 7:26 PM EMPLOYMENT COUNSELOR [facility] BLOOD (U) NEGATIVE NEGATIVE 08/29/2025 7:26 PM EMPLOYMENT COUNSELOR [facility] WBC/HPF 0-5 0 - 5 /HPF 08/29/2025 7:26 PM EMPLOYMENT COUNSELOR [facility] RBC/HPF 0-5 0 - 5 /HPF 08/29/2025 7:26 PM EMPLOYMENT COUNSELOR [facility] EPI/LPF FEW /LPF 08/29/2025 7:26 PM EMPLOYMENT COUNSELOR [facility] BACTERIA (U) 2+ /HPF 08/29/2025 7:26 PM EMPLOYMENT COUNSELOR [facility] MUCUS PRESENT 08/29/2025 7:26 PM EMPLOYMENT COUNSELOR [facility] URINE SPECIMEN OBTAINED BY CLEAN CATCH PROCEDURE / Unknown 08/29/2025 7:11 PM EMPLOYMENT COUNSELOR Lester Valle MD URINE ORDERABLES Final Result [facility] [address] [employer] [place] [phone], * XR CHEST PORTABLE (08/18/2025 8:18 PM [...] 8:23 PM Narrative 08/18/2025 9:15 PM CDT [address] [place] [address] Examination: Chest x-ray 1 view Exam time: [...] Procedure Note Timothy Mohan MD - 08/18/[address] [place] [address] Examination: Chest x-ray 1 view Exam time: [...] - 51 ng/L 08/18/2025 9:13 PM CDT [facility] 08/18/2025 7:43 PM CDT Nacho Breen MD LABORATORY Final Result [facility] [address] [place] [address], * DRUG SCREEN RAPID (08/15/2025 11:35 AM CDT) Pathologist [facility] CANNABINOIDS SCREEN (U) NEGATIVE NEGATIVE 08/15/2025 11:57 AM CDT [facility] PHENCYCLIDINE PCP (U) NEGATIVE NEGATIVE 08/15/2025 11:57 AM CDT [facility] COCAINE METABOLITES (U) NEGATIVE NEGATIVE 08/15/2025 11:57 AM CDT [facility] METHAMPHETAMINE SCREEN (U) NEGATIVE NEGATIVE 08/15/2025 11:57 AM CDT [facility] OPIATE SCREEN (U) NEGATIVE NEGATIVE 025 11:57 AM CDT [facility] AMPHETAMINE SCREEN (U) NEGATIVE NEGATIVE 08/15/2025 11:57 AM CDT [facility] BENZODIAZEPINES SCREEN (U) NEGATIVE NEGATIVE 08/15/2025 11:57 AM CDT [facility] TRICYCLIC ANTIDEPRESSANT SCREEN (U) NEGATIVE NEGATIVE 08/15/2025 11:57 AM CDT [facility] METHADONE (U) NEGATIVE NEGATIVE 08/15/2025 11:57 AM CDT [facility] BARBITURATES SCREEN (U) NEGATIVE NEGATIVE 08/15/2025 11:57 AM CDT [facility] OXYCODONE SCREEN (U) NEGATIVE NEGATIVE 08/15/2025 11:57 AM CDT [facility] URINE TOX COMMENT THIS TEST METHODOLOGY IS DESIGNED AND OFFERED A RAPID TURNAROUND, QUALITATIVE SCREENING PROCEDURE TO AID IN THE IMMEDIATE MEDICAL ASSESSMENT OF PATIENTS SUSPECTED OF SUBSTANCE ABUSE. 08/15/2025 11:36 AM CDT [facility] Comment: CLINICAL CONSIDERATION AND PROFESSIONAL JUDGMENT MUST BE APPLIED TO ANY DRUG OF ABUSE TEST RESULT, BOTH POSITIVE AND NEGATIVE. CONFIRMATORY QUANTITATIVE RESULTS ARE AVAILABLE THROUGH OUR [facility]. URINE SPECIMEN / Unknown 08/15/2025 11:35 AM CDT Yeni Pinto MD URINE ORDERABLES Final Result Performing Organization Address City/[facility]/ZIP Co de Phone Number [facility] [address] [place] [address], * STREP A RAPID (08/14/2025 11:06 AM CDT) Only the most recent of2 resultswithin the time period is included. SPECIMEN SOURCE THROAT 08/14/2025 11:11 AM CDT [facility] RAPID STREP TEST NEGATIVE NEGATIVE 08/14/2025 11:22 AM CDT [facility] STRUCTURE OF ANTERIOR REGION OF NECK / Unknown 08/14/2025 11:06 AM CDT Naldo Cadet DO MICROBIOLOGY - GENERAL ORDERAB LES Final Result Performing Organization Address City/[facility]/ZIP Co de Phone Number [facility] [place] [address], [place] [phone] * CULTURE, GENITAL W/ GRAM STAIN (07/23/2025 3:00 PM CDT) SPEC DESCRIPTION VAGINAL SPECIMEN 07/23/2025 3:08 PM CDT [facility] SPECIAL REQUESTS NO SPECIAL REQUEST 07/23/2025 3:08 PM CDT [facility] GRAM STAIN RESULT MANY GRAM POSITIVE RODS 07/23/2025 3:41 PM CDT [facility] GRAM STAIN RESULT EPITHELIAL CELLS SEEN 07/23/2025 3:41 PM CDT [facility] GRAM STAIN RESULT WBC'S SEEN 07/23/2025 3:41 PM CDT [facility] GRAM STAIN RESULT NO CLUE CELLS SEEN 07/23/2025 3:41 PM CDT [facility] GRAM STAIN RESULT NO FUNGAL ELEMENTS/YEAST SEEN 07/23/2025 3:41 PM CDT [facility] CULTURE RESULT RARE STAPHYLOCOCCUS , COAGULASE NEGATIVE 07/27/2025 11:57 AM CDT [facility] CULTURE RESULT MODERATE LACTOBACILLUS SPECIES 07/27/2025 11:57 AM CDT [facility] VAGINAL STRUCTURE / Unknown 07/23/2025 3:00 PM CDT 07/23/2025 6:16 PM CDT us Марина Grace MD MICROBIOLOGY - GENERAL ORDER ARLENE Final Result Performing Organization Address City/[facility]/ZIP Co de Phone Number [facility] [address] [place] [address], [place] [phone] [facility] [address] [place] [address], [place] [phone] * CHLAM/GC/TRICHOMONAS PROFILE (07/23/2025 3:00 PM CDT) Only the most recent of2 resultswithin the time period is included. SPEC DESCRIPTION VAGINAL SWAB 2024 3:08 PM CDT [facility] CHLAMYDIA RNA TMA NEGATIVE NEGATIVE 025 12:18 PM CDT [facility] Comment:PERFORMED BY NUCLEIC ACID AMPLIFICATION N.GONORRHOEAE RNA TMA NEGATIVE NEGATIVE 07/26/2025 12:18 PM CDT [facility] Comment:PERFORMED BY NUCLEIC ACID AMPLIFICATION TRICHOMONAS NEGATIVE NEGATIVE 07/27/2025 12:38 PM CDT [facility] Comment:PERFORMED BY NUCLEIC ACID AMPLIFICATION VAGINAL STRUCTURE / Unknown 07/23/2025 3:00 PM CDT us Марина Grace MD MICROBIOLOGY - GENERAL ORDER ARLENE Final Result [facility] [address] [place] [address], [place] [phone] [facility] [address] [place] [address], * URINE BACTERIA CULTURE (06/20/2025 4:06 PM CDT) SPEC DESCRIPTION URINE CLEAN CATCH 06/20/2025 4:55 PM CDT [facility] SPECIAL REQUESTS NO SPECIAL REQUEST 06/20/2025 4:55 PM CDT [facility] CULTURE RESULT NO GROWTH (< OR = 1,000 CFU/ML) 06/23/2025 7:27 AM CDT [facility] URINE SPECIMEN OBTAINED BY CLEAN CATCH PROCEDURE / Unknown 06/20/2025 4:06 PM CDT 06/21/2025 12:01 PM CDT Lester Valle MD MICROBIOLOGY - GENERAL ORDERA BLES Final Result [facility] [address] [place] [address], [phone] [facility] [address] [place] [address], from Last 3 Months Insurance [employer] Care Teams Loading Shovel Oiler Relationship Specialty Start Date End Date Tanner Paige MD [address] [place] [address] [place] [address] PCP - General FAMILY PRACTICE 07/01/24 Steph Hightower MD [address] [place] [address] Consulting Physician CARDIOVASCULAR DISEASE 11/07/22 Janell Celaya APNP [address] [place] [address] NURSE PRACTITIONER 12/01/24
--- OUTSIDE RECORDS SUMMARY | 2025-09-16 18:17 | XMS_ITS ---
Author Organization Unknown Address [address] [place] [phone] Phone Care Team Providers Care Cuff Setter Overlock Name Role Phone JUAN BOLDEN Attending Unavailable [...] Jarad Root M.D. AR: CHAUNCEY Report ID: [id number] Reading Location: [place] [address] Social History Type Status Start Date End Date Code Code Syst em Smoking History Never smoker (Never Smoked) 406054393 SNOMED CT Sex Female Assessment You had [...] 6002 SNOMED-CT UNSPECIFIED ABDOMINAL PAIN active 215 77528 SNOMED-CT Allergies and Adverse Reactions Allergy Substance Reaction Severity Start Date Concern Status Co de Code System AMOXICILLIN Active 723 RxNorm TERBUTALINE Active 95103 RxNorm Plan of Treatment Stress Test Treadmill 01/21/2025 Blow Machine Tender Starch Spraying Consult 04/27/2025 Encounters Encounter Diagnosis Start Date [...]
--- OUTSIDE RECORDS SUMMARY | 2025-09-16 18:18 | XMS_ITS ---
Author Organization Unknown Address [id number] [place] [phone] Phone Care Team Providers Care Advanced Quality Engineer Name Role Phone SHAYNA CRESPO Attending Unavailable [...] if indicated - Collect Date/Time: 03/25/2024 01:05 [facility] ID: [id number] [address] [place] [address], [phone] LOINC: 97741-3 Test Value Unit Reference Range Code Code System Flag UR SOURCE CLEAN CATCH 51643-3 LOINC COLOR YELLOW YELLOW 5778-6 LOINC CLARITY SL CLOUDY CLEAR 31199-2 LOINC SPEC GRAVITY >=1.030 1.000-1.030 5811-5 LOINC A PH 5.5 5.0 - 6.5 5803-2 LOINC LEUK EST NEGATIVE NEGATIVE 5799-2 LOINC NITRATE NEGATIVE NEGATIVE PROTEIN NEGATIVE NEGATIVE 5804-0 LOINC GLUCOSE 3+ NEGATIVE 37636-4 LOINC KETONES TRACE NEGATIVE 76077-7 LOINC A UROBILINOGEN 0.2 NEGATIVE 5818-0 LOINC BILIRUBIN NEGATIVE NEGATIVE 70310-9 LOINC BLOOD NEGATIVE NEGATIVE 07768-5 LOINC WBC 2-5 0 - 2 46645-0 LOINC RBC 0-2 0 - 2 02562-3 LOINC EPITHELIAL MODERATE RARE-FEW 80895-2 LOINC A BACTERIA 1+ NONE SEEN 36615-6 LOINC MUCUS MODERATE NONE SEEN 8247-9 LOINC A YEAST NOT PRESENT NOT PRESENT 23229-9 LOINC CASTS NONE SEEN 49379-5 LOINC CRYSTALS NONE SEEN 51636-8 LOINC CULTURE? NO 8251-1 LOINC DIAGNOSIS N/A CBC W/ DIFF - Collect Date/T randall: 03/25/2024 00:13 [facility] ID: [id number] [address] [place] [address], [phone] LOINC: 88106-7 Test Value Unit Reference Range Code Code System Flag WBC 13.6 10^3uL L=4.8 H=10.8 H RBC 3.78 10^6uL L=4.20 H=5.40 L HEMOGLOBIN 10.1 g/dL L=12.0 H=16.0 718-7 LOINC L HEMATOCRIT 32.3 VOL% L=37.0 H=47.0 4544-3 LOINC L MCV 85.4 fL L=81.0 H=99.0 MCH 26.7 pg L=27.0 H=32.0 L MCHC 31.3 g/dL L=32.0 H=36.0 L PLATELETS 309 10^3uL L=100 H=400 09041-6 LOINC RDW 13.5 % L=11.7 H=15.5 %GRAN 63.2 % L=40.0 H=70.0 38222-7 LOINC %LYMPH 20.2 % L=20.0 H=45.0 736-9 LOINC %MONO 12.1 % L=2.0 H=10.0 08877-4 LOINC H %EOS 2.0 % L=0.0 H=6.0 713-8 LOINC %BASO 0.2 % L=0.0 H=3.0 706-2 LOINC #NEUT 8.6 10^3uL L=1.9 H=7.6 07076-4 LOINC H #LYMPH 2.8 10^3uL L=0.9 H=4.9 99782-8 LOINC #MONO 1.6 10^3uL L=0.1 H=0.9 53501-4 LOINC H #EOS 0.3 10^3uL L=0.0 H=0.6 712-0 LOINC #BASO 0.03 10^3uL L=0.00 H=0.10 66618-0 LOINC #IM GRANS 0.3 10^3uL L=0.0 H=7.0 17427-4 LOINC %IM GRANS 2.3 % L=0.0 H=5.0 02755-7 LOINC %NRB 0.0 L=0.0 H=0.2 34742-8 LOINC #NRB 0.000 L=0.000 H=0.012 88899-9 LOINC MANUAL DIFF NOT INDICATED RBC MORPH NOT INDICATED COMPREHENSIVE METABOLIC PANE L - Collect Date/Time: 03/25/2024 00:13 [facility] ID: [id number] [place], [place], [phone] LOINC: 74004-4 Test Value Unit Reference Range Code Code [...] LOINC L ANION GAP 11 L=10 H=20 03798-0 LOINC OSMOLALITY 281 mOs/kG L=280 H=296 19902-8 LOINC BUN/CREAT 20.0 3097-3 LOINC CALCIUM 8.9 mg/dL L=8.3 H=10.5 17904-2 LOINC AST 31 U/L L=15 H=46 1920-8 LOINC ALT 25 U/L L=9 H=72 1742-6 LOINC ALKALINE PHOS 178 U/L L=38 H=126 6768-6 LOINC H TOTAL BILI 0.2 mg/dL L=0.2 H=1.3 1975-2 LOINC ALBUMIN 3.2 G/dL L=3.5 H=5.0 1751-7 LOINC L TOTAL PROTEIN 6.5 g/L L=6.3 H=8.2 2885-2 LOINC A/G RATIO 1.0 06135-4 LOINC AGE 24 06838-7 LOINC eGFR NON-AFR 160 ml/min eGFR AFR AMER 194 ml/min TROPONIN LEVEL - Collect Neil e/Time: 03/25/2024 00:13 [facility] ID: [id number] [address] [place], [place], [phone] LOINC: 96541-3 Test Value Unit Reference Range Code Code System Flag TROPONIN < 0.012 ng/mL L=0.000 H=0.033 97636-0 LOINC PROTIME - Collect Date/Time: 03/25/2024 00:13 [facility] ID: [id number] [address] [place] [address], [phone] LOINC: 02682-0 Test Value Unit Reference Range Code Code System Flag PT 9.6 Sec L=9.7 H=11.7 73665-5 LOINC L INR 0.9 Sec L=0.9 H=1.1 92781-2 LOINC PTT - Collect Date/Time: 00:13 [facility] ID: [id number] [address] [place] [address], [phone] LOINC: 66019-2 Test Value Unit Reference Range Code Code System Flag PTT 26.3 Sec L=23.0 H=31.2 Social History Type Status Start Date End Date Code Code Syst em Smoking History Never smoker (Never Smoked) 823333970 SNOMED CT Sex Female Assessment You had [...] 6002 SNOMED-CT UNSPECIFIED ABDOMINAL PAIN active 215 09872 SNOMED-CT Allergies and Adverse Reactions Allergy Substance Reaction Severity Start Date Concern Status Co de Code System AMOXICILLIN Active 723 RxNorm TERBUTALINE Active 17255 RxNorm Plan of Treatment Stress Test Treadmill 01/21/2025 Clinical Account Liaison Consult 04/27/2025 Encounters Encounter Diagnosis Start Date [...]
--- OUTSIDE RECORDS SUMMARY | 2025-09-16 18:18 | XMS_ITS ---
Author Organization Unknown Address [address] [place] [phone] Phone Care Team Providers Care Commercial Hvac Technician Name Role Phone DAVID ASHTON Attending Unavailable [...] em Smoking History Never smoker (Never Smoked) 029255841 SNOMED CT Sex Female Assessment You had [...] 6002 SNOMED-CT UNSPECIFIED ABDOMINAL PAIN active 215 96629 SNOMED-CT Allergies and Adverse Reactions Allergy Substance Reaction Severity Start Date Concern Status Co de Code System AMOXICILLIN Active 723 RxNorm TERBUTALINE Active 16247 RxNorm Plan of Treatment Stress Test Treadmill 01/21/2025 Bone Char Operator Consult 04/27/2025 Encounters Encounter Diagnosis Start Date [...]
--- OUTSIDE RECORDS SUMMARY | 2025-09-16 18:18 | XMS_ITS ---
Author Organization Unknown Address [address] [place] [phone] Phone Care Team Providers Care Hand Splitter Name Role Phone SHAYNA CRESPO Attending Unavailable [...] DIFF - Collect Date/T randall: 07/26/2024 20:25 [facility] ID: [id number] [address] [place], [place], [phone] LOINC: 85201-3 Test Value Unit Reference Range Code Code System Flag WBC 9.1 10^3uL L=4.8 H=10.8 RBC 4.76 10^6uL L=4.20 H=5.40 HEMOGLOBIN 12.7 g/dL L=12.0 H=16.0 718-7 LOINC HEMATOCRIT 40.5 VOL% L=37.0 H=47.0 4544-3 LOINC MCV 85.1 fL L=81.0 H=99.0 MCH 26.7 pg L=27.0 H=32.0 L MCHC 31.4 g/dL L=32.0 H=36.0 L PLATELETS 290 10^3uL L=100 H=400 53932-8 LOINC RDW 13.2 % L=11.7 H=15.5 %GRAN 55.5 % L=40.0 H=70.0 85410-5 LOINC %LYMPH 33.0 % L=20.0 H=45.0 736-9 LOINC %MONO 8.4 % L=2.0 H=10.0 41206-7 LOINC %EOS 2.5 % L=0.0 H=6.0 713-8 LOINC %BASO 0.4 % L=0.0 H=3.0 706-2 LOINC #NEUT 5.0 10^3uL L=1.9 H=7.6 06914-4 LOINC #LYMPH 3.0 10^3uL L=0.9 H=4.9 80730-3 LOINC #MONO 0.8 10^3uL L=0.1 H=0.9 52499-6 LOINC #EOS 0.2 10^3uL L=0.0 H=0.6 712-0 LOINC #BASO 0.04 10^3uL L=0.00 H=0.10 76740-8 LOINC #IM GRANS 0.0 10^3uL L=0.0 H=7.0 48825-3 LOINC %IM GRANS 0.2 % L=0.0 H=5.0 75407-3 LOINC %NRB 0.0 L=0.0 H=0.2 37416-6 LOINC #NRB 0.000 L=0.000 H=0.012 66461-9 LOINC MANUAL DIFF NOT INDICATED RBC MORPH NOT INDICATED COMPREHENSIVE METABOLIC PANE L - Collect Date/Time: 07/26/2024 20:25 [facility] ID: [id number] [address] [place], [place], [id number] LOINC: 72696-5 Test Value Unit Reference Range Code Code [...] 2028-9 LOINC ANION GAP 16 L=10 H=20 17185-4 LOINC OSMOLALITY 296 mOs/kG L=280 H=296 24978-7 LOINC BUN/CREAT 25.0 3097-3 LOINC CALCIUM 10.1 mg/dL L=8.3 H=10.5 47183-6 LOINC AST 25 U/L L=15 H=46 1920-8 LOINC ALT 20 U/L L=9 H=72 1742-6 LOINC ALKALINE PHOS 71 U/L L=38 H=126 6768-6 LOINC TOTAL BILI 0.4 mg/dL L=0.2 H=1.3 1974-2 LOINC ALBUMIN 4.7 G/dL L=3.5 H=5.0 1751-7 LOINC TOTAL PROTEIN 8.2 g/L L=6.3 H=8.2 5-2 LOINC A/G RATIO 1.3 45328-1 LOINC AGE 24 75655-2 LOINC eGFR NON-AFR 93 ml/min eGFR AFR AMER 113 ml/min CPK - Collect Date/Time: 20:25 [facility] ID: [id number] [address] [place] [address], [phone] LOINC: 6 Test Value Unit Reference Range Code Code System Flag CPK 92 U/L L=30 H=170 2156-6 LOINC LACTIC ACID - Collect Date/T randall: 07/26/2024 20:25 [facility] ID: [id number] [address] [place] [address], [id number] LOINC: 92494-5 Test Value Unit Reference Range Code Code System Flag LACTIC ACID 0.7 mmol/L L=0.7 H=2.6 07667-2 LOINC MAGNESIUM - Collect Date/Patricio e: 07/26/2024 20:25 [facility] ID: [id number] [address] [place] [address], [phone] LOINC: 40978-5 Test Value Unit Reference Range Code Code System Flag MAGNESIUM 1.9 mg/dL L=1.6 H=2.3 62106-1 LOINC Social History Type Status Start Date End Date Code Code Syst em Smoking History Never smoker (Never Smoked) 468562465 SNOMED CT Sex Female Assessment You had [...] 6002 SNOMED-CT UNSPECIFIED ABDOMINAL PAIN active 215 05854 SNOMED-CT Allergies and Adverse Reactions Allergy Substance Reaction Severity Start Date Concern Status Co de Code System AMOXICILLIN Active 723 RxNorm TERBUTALINE Active 52062 RxNorm Plan of Treatment Stress Test Treadmill 01/21/2025 Provider Relations Rep Consult 04/27/2025 Encounters Encounter Diagnosis Start Date [...]
--- OUTSIDE RECORDS SUMMARY | 2025-09-16 18:18 | XMS_ITS ---
Author Organization Unknown Address [address] [place] [phone] Phone Care Team Providers Care Box Office Agent Name Role Phone RUFUS SEGAL Attending Unavailable [...] em Smoking History Never smoker (Never Smoked) [id number] SNOMED CT Sex Female Assessment You had [...] 6002 SNOMED-CT UNSPECIFIED ABDOMINAL PAIN active 215 28756 SNOMED-CT Allergies and Adverse Reactions Allergy Substance Reaction Severity Start Date Concern Status Co de Code System AMOXICILLIN Active 723 RxNorm TERBUTALINE Active 11626 RxNorm Plan of Treatment Stress Test Treadmill 01/21/2025 Production Potter Consult 04/27/2025 Encounters Encounter Diagnosis Start Date [...]
--- OUTSIDE RECORDS SUMMARY | 2025-09-16 18:18 | XMS_ITS ---
Author Organization Unknown Address [address] [place] [phone] Phone Care Team Providers Care Card Hanger Name Role Phone ANNABELLE GONZALEZ Attending Unavailable [...] PCR - Colle ct Date/Time: 06/14/2024 00:01 [facility] ID: [id number] [place] [address], [phone] LOINC: 11511-8 Test Value Unit Reference Range Code Code System Flag GRP A STREP PCR NEGATIVE NORMAL: NEGATIVE RESPIRATORY PATHOGEN PANEL + SARS PCR - Collect Date/Time: 06/14/2024 00:01 [facility] ID: [id number] [id number] [place] [address], [phone] LOINC: 67845-5 Test Value Unit Reference Range Code Code System Flag ADENOVIRUS NOT DETECTED NORMAL: NOT DETECTED 5778-6 LOINC CORONAVIRUS 229E NOT DETECTED NORMAL: NOT DETECTED 5778-6 LOINC CORONAVIRUS HKU1 NOT DETECTED NORMAL: NOT DETECTED 5778-6 LOINC CORONAVIRUS NL63 NOT DETECTED NORMAL: NOT DETECTED 5778-6 LOINC CORONAVIRUS OC43 NOT DETECTED NORMAL: NOT DETECTED 5778-6 LOINC CORONAVIRUS COVID-19 NOT DETECTED NORMAL: NOT DETECTED 13270-0 LOINC H METAPNEUMOVIRUS NOT DETECTED NORMAL: NO [...] NORMAL: NOT DETECTED 5778-6 LOINC SEND TO [facility]? NO CHEST 2V - Completed: 2023 01:08 [...] Banks M.D., D.O. MW: SOLA Report ID: [id number] Reading Location: [place] [address] Social History Type Status Start Date End Date Code Code Syst em Smoking History Never smoker (Never Smoked) 486939261 SNOMED CT Sex Female Assessment You had [...] 6002 SNOMED-CT UNSPECIFIED ABDOMINAL PAIN active 215 36897 SNOMED-CT Allergies and Adverse Reactions Allergy Substance Reaction Severity Start Date Concern Status Co de Code System AMOXICILLIN Active 723 RxNorm TERBUTALINE Active 89869 RxNorm Plan of Treatment Stress Test Treadmill 01/21/2025 Produce Weigher Consult 04/27/2025 Encounters Encounter Diagnosis Start Date [...]
--- OUTSIDE RECORDS SUMMARY | 2025-09-16 18:18 | XMS_ITS ---
Author Organization Unknown Address [address] [place] [address] [phone] Phone Care Team Providers Care Nurse Plastics Name Role Phone MARK Fernandez Attending Unavailable [...] if indicated - Collect Date/Time: 09/28/2023 07:50 [facility] ID: [id number] [place], [place], [id number] LOINC: 14464-2 Test Value Unit Reference Range Code Code System Flag UR SOURCE UNKNOWN 66518-1 LOINC COLOR YELLOW YELLOW 5778-6 LOINC CLARITY SL CLOUDY CLEAR 13775-1 LOINC SPEC GRAVITY 1.020 1.000-1.030 5811-5 LOINC PH 7.0 5.0 - 6.5 5803-2 LOINC LEUK EST TRACE NEGATIVE 5799-2 LOINC A NITRATE NEGATIVE NEGATIVE PROTEIN NEGATIVE NEGATIVE 5804-0 LOINC GLUCOSE NEGATIVE NEGATIVE 62637-9 LOINC KETONES NEGATIVE NEGATIVE 68799-4 LOINC UROBILINOGEN 1.0 NEGATIVE 5818-0 LOINC BILIRUBIN NEGATIVE NEGATIVE 81556-4 LOINC BLOOD NEGATIVE NEGATIVE 85724-7 LOINC WBC 2-5 0 - 2 28985-8 LOINC RBC 0-2 0 - 2 24802-4 LOINC EPITHELIAL MODERATE RARE-FEW 27069-0 LOINC A ~ COMMENT Prob. contamination due to improper collec ~~ COMMENT RECOLLECT REQUESTED BACTERIA 2+ NONE SEEN 03817-4 LOINC A MUCUS 1+ NONE SEEN 8247-9 LOINC YEAST NOT PRESENT NOT PRESENT 11562-8 LOINC CASTS NONE SEEN 16434-3 LOINC CRYSTALS NONE SEEN 12932-2 LOINC CULTURE? NO 8251-1 LOINC DIAGNOSIS N/A BETA HCG-QUANT - Collect Neil e/Time: 09/28/2023 07:40 [facility] ID: [id number] [place], [place], [id number] LOINC: 04885-3 Test Value Unit Reference Range Code Code System Flag BETA HCG-QUANT 863185.00 mIU/mL L=0.00 H=6.00 14765-7 LOINC H Social History Type Status Start Date End Date Code Code Syst em Smoking History Never smoker (Never Smoked) 733387338 SNOMED CT Sex Female Assessment You had [...] 6002 SNOMED-CT UNSPECIFIED ABDOMINAL PAIN active 215 56982 SNOMED-CT Allergies and Adverse Reactions Allergy Substance Reaction Severity Start Date Concern Status Co de Code System AMOXICILLIN Active 723 RxNorm TERBUTALINE Active 44412 RxNorm Plan of Treatment Stress Test Treadmill 01/21/2025 Hydroelectric Station Chief Consult 04/27/2025 Encounters Encounter Diagnosis Start Date [...]
--- OUTSIDE RECORDS SUMMARY | 2025-09-16 18:18 | XMS_ITS | Clinical Summary ---
Author Organization [employer] Address [address] [place] [address] Care Team Providers Care Commercial Account Officer Name Role Phone Unavailable Primary Care Provider Unavailabl e Source Comments [facility] [employer],non-owned Affiliates and Associated Physician Practices is amultiple site organization consisting of ambulatory clinics and hospital sitesin [place], [place], [place] and [place]. This disclosure is being madepursuant to the Care Everywhere program and may not contain all information available regarding this patient. Last updated [email or web address] Allergies Active Allergy Reactions Criticality Noted Date [...] [facility]/ EVALUATION UNIT [address] [place] [address]. [address] [place] [address] Anju Flanagan RN Care Management Other (Follow up for SDOH needs. Pt was seen once at [facility] on 06/07/25. Pt has no other follow up appointment at this location. She is receiving care in [place]. Will close this referral. ) 07/19/2025 Orders Only [facility] EV[facility]ATION UN[facility] [address] [place] [address]. [address] [place] [address] Karri Bledsoe MD Needs assistance with community resources 07/19/2025 Patient Outreach [facility]/ EVALUATION UN[facility] [address] [place] [address]. [address] [place] [address] Drea Romano RN Care Management Other from Last 3 Months Social History Tobacco Use Types Packs/Day Years Used Date Smoking Tobacco: Never Assessed Overall Financial Resource Strain (CARDIA) Answe r Date Recorded How hard is it for you to pa y for the very basics like food, housing, medical care, and heating? Not hard at all 06/07/2025 [facility] Occupat ional Health - Occupational Stress [...] things needed for daily living? No 06/07/2025 [place] Depression Scale Answer Date Recorded [place] Depression Scale Total 14 06/07/2025 The thought [...] any time in the past 12 m [facility], were you homeless or living in a retirement (including now)? 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
--- OUTSIDE RECORDS SUMMARY | 2025-09-16 18:19 | XMS_ITS | Clinical Summary ---
Author Organization [employer] [address] [facility] 3rd [place] [address] Phone Care Team Providers Care Supervisor Commissary Production Name Role Phone Unavailable Primary Care Provider Unavailabl e Allergies No known active allergies Medications vits15/iron/fol ic/dss ( VIT 22-GZXW-HQLQY-D SS ORAL) Take by mouth. 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
--- OUTSIDE RECORDS SUMMARY | 2025-09-16 18:19 | XMS_ITS ---
Author Organization Unknown Address [address] [place] [address] [phone] Phone Care Team Providers Care Group Rooms Coordinator Name Role Phone ANNABELLE GONZALEZ Attending Unavailable [...] em Smoking History Never smoker (Never Smoked) 669256164 SNOMED CT Sex Female Assessment You had [...] 6002 SNOMED-CT UNSPECIFIED ABDOMINAL PAIN active 215 09560 SNOMED-CT Allergies and Adverse Reactions Allergy Substance Reaction Severity Start Date Concern Status Co de Code System AMOXICILLIN Active 723 RxNorm TERBUTALINE Active 34468 RxNorm Plan of Treatment Stress Test Treadmill 01/21/2025 Mining Consultant Consult 04/27/2025 Encounters Encounter Diagnosis Start Date Code Code Sys tem Canceled operative procedure 07/23/2024 23395430 SNOMED-CT Personal Care Team Section Performer Name [...]
--- OUTSIDE RECORDS SUMMARY | 2025-09-16 18:19 | XMS_ITS | Clinical Summary ---
Author Organization [facility] Address [address] [place] [address] Phone Care Team Providers Care Employee Communications Manager Name Role Phone Unavailable Primary Care Provider [...] by inhalation 2 times daily. Active vitamin (GLASS FURNACE TENDER-PNV-DHA) 28-1-215.8 MG Capsule Take by mouth. Activ [...] Upcoming Encounters Date Type Department Care Team ([facility] st Contact Info) Description 09/21/2025 1:00 PM [place] Office Visit [facility] [address] [place] [address] Kaitlin Kelly, SAMPLE CUTTER, CIRCUIT BOARD DRAFTER [address] [place] [address] Health Maintenance Due Date Last Done Comments [...] Additional history exists TdaP Immunization Completed 06/21/2012 Varicella Immunization Completed 08/31/2014, 1999 Meningococcal Immunization (ACWY) Completed 01/05/2017, 06/21/2012 Pneumococcal Immunization Combined Aged Out No longer eligible based on patient's age to complete this topic Rotavirus Immunization Aged Out No lo nger eligible based on patient's age to complete this topic Insurance MEDICAID [employer]
--- OUTSIDE RECORDS SUMMARY | 2025-09-16 18:19 | XMS_ITS ---
Author Organization Unknown Address [address] [place] [phone] Phone Care Team Providers Care Battery Tester Name Role Phone DAVID ASHTON Attending Unavailable [...] PCR CEPHEID - Collect Date/Time: 11/06/2023 00:50 [facility] ID: [id number] [address] [place] [address], [phone] LOINC: 82907-9 Test Value Unit Reference Range Code Code System Flag CT/NG SOURCE: GENITAL CT NOT DETECTED NORMAL: NOT DETECTED 10519-7 LOINC NG NOT DETECTED NORMAL: NOT DETECTED 97500-7 LOINC SEND TO I[facility]? NO TV Trich genital swab/urine PCR CEPHEID - Collect Date/Time: 11/06/2023 00:50 [facility] ID: [id number] [address] [place] [address], [phone] LOINC: 94242-5 Test Value Unit Reference Range Code Code System Flag TV TRICH SOURCE: GENITAL TV TRICH NOT DETECTED SEND TO I[facility]? NO COMPREHENSIVE METABOLIC PANE L - Collect Date/Time: 11/06/2023 00:29 [facility] ID: [id number] [address] [place] [address], [phone] LOINC: 04746-8 Test Value Unit Reference Range Code Code System Flag FASTING UNKNOWN BUN 9 mg/dL L=7 H=20 3094-0 LOINC CREATININE 0.50 mg/dL L=0.52 H=1.04 2160-0 LOINC L GLUCOSE 88 mg/dL L=74 H=106 2345-7 LOINC SODIUM 136 mmol/L L=132 H=144 2951-2 LOINC POTASSIUM 3.2 mmol/L L=3.5 H=5.1 2823-3 LOINC L CHLORIDE 104 mmol/L L=98 H=107 2075-0 LOINC CO2 23.0 mmol/L L=22.0 H=30.0 8-9 LOINC ANION GAP 12 L=10 H=20 75855-3 LOINC OSMOLALITY 280 mOs/kG L=280 H=296 64084-3 LOINC BUN/CREAT 18.0 3097-3 LOINC CALCIUM 8.9 mg/dL L=8.3 H=10.5 87572-1 LOINC AST 18 U/L L=15 H=46 1920-8 LOINC ALT 12 U/L L=9 H=72 1742-6 LOINC ALKALINE PHOS 56 U/L L=38 H=126 6768-6 LOINC TOTAL BILI 0.2 mg/dL L=0.2 H=1.3 1975-2 LOINC ALBUMIN 3.6 G/dL L=3.5 H=5.0 1751-7 LOINC TOTAL PROTEIN 6.8 g/L L=6.3 H=8.2 2885-2 LOINC A/G RATIO 1.1 66777-7 LOINC AGE 23 85592-4 LOINC eGFR NON-AFR 161 ml/min eGFR AFR AMER 195 ml/min BETA HCG-QUANT - Collect Neil e/Time: 11/06/2023 00:29 [facility] ID: [id number] [address] [place] [address], [phone] LOINC: 32860-9 Test Value Unit Reference Range Code Code System Flag BETA HCG-QUANT 45583.00 mIU/mL L=0.00 H=6.00 70754-8 LOINC H LIPASE - Collect Date/Time: 11/06/2023 00:29 [facility] ID: [id number] [place] [address], [phone] LOINC: 3040-3 Test Value Unit Reference Range Code Code System Flag LIPASE 76 U/L L=23 H=300 3040-3 LOINC CBC W/ DIFF - Collect Date/T randall: 11/06/2023 00:29 [facility] ID: [id number] [address] [place], [place], [phone] LOINC: 04325-7 Test Value Unit Reference Range Code Code System Flag WBC 11.2 10^3uL L=4.8 H=10.8 H RBC 3.51 10^6uL L=4.20 H=5.40 L HEMOGLOBIN 10.0 g/dL L=12.0 H=16.0 718-7 LOINC L HEMATOCRIT 30.5 VOL% L=37.0 H=47.0 4544-3 LOINC L MCV 86.9 fL L=81.0 H=99.0 MCH 28.5 pg L=27.0 H=32.0 MCHC 32.8 g/dL L=32.0 H=36.0 PLATELETS 330 10^3uL L=100 H=400 31256-7 LOINC RDW 12.4 % L=11.7 H=15.5 %GRAN 62.6 % L=40.0 H=70.0 46003-1 LOINC %LYMPH 26.0 % L=20.0 H=45.0 736-9 LOINC %MONO 8.1 % L=2.0 H=10.0 07590-2 LOINC %EOS 2.3 % L=0.0 H=6.0 713-8 LOINC %BASO 0.2 % L=0.0 H=3.0 706-2 LOINC #NEUT 7.0 10^3uL L=1.9 H=7.6 14973-2 LOINC #LYMPH 2.9 10^3uL L=0.9 H=4.9 12769-5 LOINC #MONO 0.9 10^3uL L=0.1 H=0.9 09077-7 LOINC #EOS 0.3 10^3uL L=0.0 H=0.6 712-0 LOINC #BASO 0.02 10^3uL L=0.00 H=0.10 33213-4 LOINC #IM GRANS 0.1 10^3uL L=0.0 H=7.0 83530-2 LOINC %IM GRANS 0.8 % L=0.0 H=5.0 34875-9 LOINC %NRB 0.0 L=0.0 H=0.2 24322-0 LOINC #NRB 0.000 L=0.000 H=0.012 65794-9 LOINC MANUAL DIFF NOT INDICATED RBC MORPH NOT INDICATED URINALYSIS w/Microscopy/C&S if indicated - Collect Date/Time: 11/06/2023 00:20 [facility] ID: [id number] [address] [place], [place], [phone] LOINC: 83709-5 Test Value Unit Reference Range Code Code System Flag UR SOURCE UNKNOWN 91225-5 LOINC COLOR YELLOW YELLOW 5778-6 LOINC CLARITY SL CLOUDY CLEAR 40203-7 LOINC SPEC GRAVITY >=1.030 1.000-1.030 5811-5 LOINC A PH 6.0 5.0 - 6.5 5803-2 LOINC LEUK EST NEGATIVE NEGATIVE 5799-2 LOINC NITRATE NEGATIVE NEGATIVE PROTEIN NEGATIVE NEGATIVE 5804-0 LOINC GLUCOSE NEGATIVE NEGATIVE 54889-4 LOINC KETONES TRACE NEGATIVE 64153-6 LOINC A UROBILINOGEN 0.2 NEGATIVE 5818-0 LOINC BILIRUBIN NEGATIVE NEGATIVE 23618-6 LOINC BLOOD NEGATIVE NEGATIVE 68327-5 LOINC WBC 0-2 0 - 2 55044-8 LOINC RBC 0-2 0 - 2 04347-5 LOINC EPITHELIAL MODERATE RARE-FEW 91616-6 LOINC A BACTERIA FEW NONE SEEN 33426-7 LOINC MUCUS MODERATE NONE SEEN 8247-9 LOINC A YEAST NOT PRESENT NOT PRESENT 90677-5 LOINC CASTS NONE SEEN 12914-4 LOINC CRYSTALS NONE SEEN 85248-9 LOINC CULTURE? NO 8251-1 LOINC DIAGNOSIS ABN LAB RESU US GALLBLADDER - Completed: 11/06/2023 05:33 LOINC: EXAM DESCRIPTION: US GALLBLADDER REASON FOR STUDY: PT COMPLAINS OF INTERMITTENT EPIGASTRIC PAIN X 5 HOURS. STATES SHE VOMITTED BILE. 16 WKS , STATES SHE HAD NORMAL ULTRASOUND AT 9 WKS [facility]ATION AT [facility] [place], LMP=07/21/23 EDC=04/16/24, Duration: X 5 HOURS TECHNIQUE: [...] Electronically signed by Lucretia Issa M.D. TW: TW Report ID: [id number] Reading Location: [place] [address] US OB LIMITED - Completed: 0 11/06/2023 05:30 LOINC: EXAM DESCRIPTION: US OB LIMITED REASON FOR STUDY: PT COMPLAINS OF INTERMITTENT EPIGASTRIC PAIN X 5 HOURS. STATES SHE VOMITTED BILE. 16 WKS , STATES SHE HAD NORMAL ULTRASOUND AT 9 WKS GESTATION [facility], LMP=07/21/23 EDC=04/16/24, Duration: X 5 HOURS Beta-hCG: [...] Electronically signed by Lucretia Issa M.D. TW: TW Report ID: [id number] Reading Location: [id number] Social History Type Status Start Date End Date Code Code Syst em Smoking History Never smoker (Never Smoked) 296109103 SNOMED CT Sex Female Assessment You had [...] 6002 SNOMED-CT UNSPECIFIED ABDOMINAL PAIN active 215 05153 SNOMED-CT Allergies and Adverse Reactions Allergy Substance Reaction Severity Start Date Concern Status Co de Code System AMOXICILLIN Active 723 RxNorm TERBUTALINE Active 34831 RxNorm Plan of Treatment Stress Test Treadmill 01/21/2025 Pouch Making Machine Operator Consult 04/27/2025 Encounters Encounter Diagnosis Start Date Code Code Sys tem Diseases of the digestive sy stem complicating , second trimester 11/05/2023 SNOMED-CT Personal Care Team Section Performer Name Performer Role Active Date Inactive Da te KRAIG ESTRADA PCP - Primary care physician 2021-10 0-2024-09-12 KRAIG ESTRADA PCP - Primary care physician 2023-11-062024-09-12 KRAIG ESTRADA PCP - Primary care physician 11-062024-09-12 KRAIG ESTRADA PCP - Primary care physician 0 -16 2024-09-12 Hong Abdi PCP - Primary care physician 2024-09-12 Imaging Narrative Notes
--- OUTSIDE RECORDS SUMMARY | 2025-09-16 18:19 | XMS_ITS ---
Author Organization Unknown Address [address] [place] [phone] Phone Care Team Providers Care Digital Marketing Analyst Name Role Phone ANNABELLE GONZALEZ Attending Unavailable [...] DIFF - Collect Date/T randall: 06/25/2024 08:22 [facility] ID: [id number] [address] [place], [place], [id number] LOINC: 70365-3 Test Value Unit Reference Range Code Code System Flag WBC 14.4 10^3uL L=4.8 H=10.8 H RBC 4.94 10^6uL L=4.20 H=5.40 HEMOGLOBIN 12.8 g/dL L=12.0 H=16.0 718-7 LOINC HEMATOCRIT 40.8 VOL% L=37.0 H=47.0 4544-3 LOINC MCV 82.6 fL L=81.0 H=99.0 MCH 25.9 pg L=27.0 H=32.0 L MCHC 31.4 g/dL L=32.0 H=36.0 L PLATELETS 329 10^3uL L=100 H=400 26275-0 LOINC RDW 14.0 % L=11.7 H=15.5 %GRAN 75.9 % L=40.0 H=70.0 76719-7 LOINC H %LYMPH 14.7 % L=20.0 H=45.0 736-9 LOINC L %MONO 8.6 % L=2.0 H=10.0 07692-7 LOINC %EOS 0.1 % L=0.0 H=6.0 713-8 LOINC %BASO 0.1 % L=0.0 H=3.0 706-2 LOINC #NEUT 10.9 10^3uL L=1.9 H=7.6 41702-2 LOINC H #LYMPH 2.1 10^3uL L=0.9 H=4.9 95179-7 LOINC #MONO 1.2 10^3uL L=0.1 H=0.9 68723-4 LOINC H #EOS 0.0 10^3uL L=0.0 H=0.6 712-0 LOINC #BASO 0.02 10^3uL L=0.00 H=0.10 35949-0 LOINC #IM GRANS 0.1 10^3uL L=0.0 H=7.0 96984-5 LOINC %IM GRANS 0.6 % L=0.0 H=5.0 42281-1 LOINC %NRB 0.0 L=0.0 H=0.2 83614-5 LOINC #NRB 0.000 L=0.000 H=0.012 18041-8 LOINC MANUAL DIFF NOT INDICATED RBC MORPH NOT INDICATED COMPREHENSIVE METABOLIC PANE L - Collect Date/Time: 06/25/2024 08:22 [facility] ID: [id number] [address] [place], [place], [id number] LOINC: 97441-7 Test Value Unit Reference Range Code Code [...] 2028-9 LOINC ANION GAP 14 L=10 H=20 42104-4 LOINC OSMOLALITY 289 mOs/kG L=280 H=296 72537-7 LOINC BUN/CREAT 20.0 3097-3 LOINC CALCIUM 9.4 mg/dL L=8.3 H=10.5 35363-1 LOINC AST 24 U/L L=15 H=46 1920-8 LOINC ALT 21 U/L L=9 H=72 1742-6 LOINC ALKALINE PHOS 87 U/L L=38 H=126 6768-6 LOINC TOTAL BILI 0.4 mg/dL L=0.2 H=1.3 1975-2 LOINC ALBUMIN 4.5 G/dL L=3.5 H=5.0 1751-7 LOINC TOTAL PROTEIN 7.8 g/L L=6.3 H=8.2 2885-2 LOINC A/G RATIO 1.4 97985-7 LOINC AGE 24 88312-9 LOINC eGFR NON-AFR 108 ml/min eGFR AFR AMER 131 ml/min TROPONIN LEVEL - Collect Neil e/Time: 06/25/2024 08:22 [facility] ID: [id number] [address] [place] [address], [id number] LOINC: 21766-2 Test Value Unit Reference Range Code Code System Flag TROPONIN < 0.012 ng/mL L=0.000 H=0.033 71067-2 LOINC RESPIRATORY PATHOGEN PANEL + SARS PCR - Collect Date/Time: 06/25/2024 08:17 [facility] ID: [id number] [address] [place] [address], [id number] LOINC: 04029-9 Test Value Unit Reference Range Code Code System Flag ADENOVIRUS NOT DETECTED NORMAL: NOT DETECTED 5778-6 LOINC CORONAVIRUS 229E NOT DETECTED NORMAL: NOT DETECTED 5778-6 LOINC CORONAVIRUS HKU1 NOT DETECTED NORMAL: NOT DETECTED 5778-6 LOINC CORONAVIRUS NL63 NOT DETECTED NORMAL: NOT DETECTED 5778-6 LOINC CORONAVIRUS OC43 NOT DETECTED NORMAL: NOT DETECTED 5778-6 LOINC CORONAVIRUS COVID-19 NOT DETECTED NORMAL: NOT DETECTED 76822-1 LOINC H METAPNEUMOVIRUS NOT DETECTED NORMAL: NO T DETECTED 5778-6 LOINC H RHINO/ENTEROVIRUS DETECTED NORMAL: NOT DETECTED 5778-6 LOINC INFLU A NOT DETECTED NORMAL: NOT DETECTED 5778-6 LOINC INFLU A/H1 N/A NORMAL: NOT DETECTED 5778-6 LOINC INFLU A/H3 N/A NORMAL: NOT DETECTED 5778-6 LOINC INFLU A/H1 2008 N/A NORMAL: NOT DETECTED 5778-6 LOINC INFLU [...] NORMAL: NOT DETECTED 5778-6 LOINC SEND TO [facility]? YES GROUP A STREP BY PCR - Colle ct Date/Time: 06/25/2024 08:17 [facility] ID: [id number] [address] [place], [place], [id number] LOINC: 38259-3 Test Value Unit Reference Range Code Code [...] David Wolf M.D. AM: AM Report ID: [id number] Reading Location: [place] [address] Social History Type Status Start Date End Date Code Code Syst em Smoking History Never smoker (Never Smoked) 694966318 SNOMED CT Sex Female Assessment You had [...] 6002 SNOMED-CT UNSPECIFIED ABDOMINAL PAIN active 215 91476 SNOMED-CT Allergies and Adverse Reactions Allergy Substance Reaction Severity Start Date Concern Status Co de Code System AMOXICILLIN Active 723 RxNorm TERBUTALINE Active 91726 RxNorm Plan of Treatment Stress Test Treadmill 01/21/2025 Sammying Machine Operator Consult 04/27/2025 Encounters Encounter Diagnosis [...]
--- OUTSIDE RECORDS SUMMARY | 2025-09-16 18:19 | XMS_ITS ---
Author Organization Unknown Address [address] [place] [phone] Phone Care Team Providers Care Dry End Operator Name Role Phone DAVID ASHTON Attending Unavailable [...] LEVEL - Collect Neil e/Time: 06/23/2024 19:14 [facility] ID: [id number] [address] [place], [place], [id number] LOINC: 23220-8 Test Value Unit Reference Range Code Code System Flag TROPONIN < 0.012 ng/mL L=0.000 H=0.033 74726-4 LOINC CBC W/ DIFF - Collect Date/T randall: 06/23/2024 15:22 [facility] ID: [id number] [address] [place], [place], [address] LOINC: 25284-6 Test Value Unit Reference Range Code Code System Flag WBC 7.8 10^3uL L=4.8 H=10.8 RBC 4.88 10^6uL L=4.20 H=5.40 HEMOGLOBIN 12.7 g/dL L=12.0 H=16.0 718-7 LOINC HEMATOCRIT 40.6 VOL% L=37.0 H=47.0 4544-3 LOINC MCV 83.2 fL L=81.0 H=99.0 MCH 26.0 pg L=27.0 H=32.0 L MCHC 31.3 g/dL L=32.0 H=36.0 L PLATELETS 290 10^3uL L=100 H=400 49592-1 LOINC RDW 13.8 % L=11.7 H=15.5 %GRAN 48.3 % L=40.0 H=70.0 82529-2 LOINC %LYMPH 40.2 % L=20.0 H=45.0 736-9 LOINC %MONO 8.0 % L=2.0 H=10.0 83109-2 LOINC %EOS 2.8 % L=0.0 H=6.0 713-8 LOINC %BASO 0.4 % L=0.0 H=3.0 706-2 LOINC #NEUT 3.8 10^3uL L=1.9 H=7.6 34756-1 LOINC #LYMPH 3.2 10^3uL L=0.9 H=4.9 02979-6 LOINC #MONO 0.6 10^3uL L=0.1 H=0.9 54796-0 LOINC #EOS 0.2 10^3uL L=0.0 H=0.6 712-0 LOINC #BASO 0.03 10^3uL L=0.00 H=0.10 22026-0 LOINC #IM GRANS 0.0 10^3uL L=0.0 H=7.0 13611-7 LOINC %IM GRANS 0.3 % L=0.0 H=5.0 69942-4 LOINC %NRB 0.0 L=0.0 H=0.2 10735-0 LOINC #NRB 0.000 L=0.000 H=0.012 98634-9 LOINC MANUAL DIFF NOT INDICATED RBC MORPH NOT INDICATED COMPREHENSIVE METABOLIC PANE L - Collect Date/Time: 06/23/2024 15:22 [facility] ID: [id number] [address] [place], [place], [address] LOINC: 05362-7 Test Value Unit Reference Range Code Code [...] 2028-9 LOINC ANION GAP 14 L=10 H=20 19355-1 LOINC OSMOLALITY 294 mOs/kG L=280 H=296 69514-5 LOINC BUN/CREAT 21.1 3097-3 LOINC CALCIUM 9.5 mg/dL L=8.3 H=10.5 70282-3 LOINC AST 31 U/L L=15 H=46 1920-8 LOINC ALT 22 U/L L=9 H=72 1742-6 LOINC ALKALINE PHOS 90 U/L L=38 H=126 6768-6 LOINC TOTAL BILI 0.4 mg/dL L=0.2 H=1.3 1975-2 LOINC ALBUMIN 4.6 G/dL L=3.5 H=5.0 1751-7 LOINC TOTAL PROTEIN 7.8 g/L L=6.3 H=8.2 2885-2 LOINC A/G RATIO 1.4 03754-9 LOINC AGE 24 48212-9 LOINC eGFR NON-AFR 81 ml/min eGFR AFR AMER 98 ml/min LIPASE - Collect Date/Time: 06/23/2024 15:22 [facility] ID: [id number] [address] [place] [address], [id number] LOINC: 3040-3 Test Value Unit Reference Range Code Code System Flag LIPASE 118 U/L L=23 H=300 3040-3 LOINC TROPONIN LEVEL - Collect Neil e/Time: 06/23/2024 15:22 [facility] ID: [id number] [address] [place] [address], [id number] LOINC: 41517-5 Test Value Unit Reference Range Code Code System Flag TROPONIN < 0.012 ng/mL L=0.000 H=0.033 18045-6 LOINC TEST SERUM - Colle ct Date/Time: 06/23/2024 15:22 [facility] ID: [id number] [address] [place] [address], [id number] LOINC: Test Value Unit Reference Range Code Code System Flag SERUM PREG NEGATIVE D DIMER - Collect Date/Time: 06/23/2024 15:22 [facility] ID: [id number] [address] [place], [place], [phone] LOINC: Test Value Unit Reference Range Code [...] Justa Nagy M.D. AT: AT Report ID: [id number] Reading Location: [id number] CT CHEST PE ANGIO W/ CONTRAS T - Completed: 06/23/2024 16:55 LOINC: 42926-2 EXAM DESCRIPTION: CT CHEST PE ANGIO W/ [...] Justa Nagy M.D. AT: AT Report ID: [id number] Reading Location: [place] [address] [place] GALLBLADDER - Completed: 06/23/2024 15:44 LOINC: [...] 3:52 PM - Electronically signed by John Arango D.O. AP: AP Report ID: [id number] Reading Location: [id number] Social History Type Status Start Date End Date Code Code Syst em Smoking History Never smoker (Never Smoked) 560237285 SNOMED CT Sex Female Assessment You had [...] 6002 SNOMED-CT UNSPECIFIED ABDOMINAL PAIN active 215 27429 SNOMED-CT Allergies and Adverse Reactions Allergy Substance Reaction Severity Start Date Concern Status Co de Code System AMOXICILLIN Active 723 RxNorm TERBUTALINE Active 89065 RxNorm Plan of Treatment Stress Test Treadmill 01/21/2025 Card Hand Consult 04/27/2025 Encounters Encounter Diagnosis Start Date [...]
--- OUTSIDE RECORDS SUMMARY | 2025-09-16 18:19 | XMS_ITS | Clinical Summary ---
Author Organization [facility] Address [address] [place] [address] Care Team Providers Care Director Pharmacovigilance Name Role Phone Tammi Menon DOREEN Primary [...] have care with Dr. Ortega Denson in [place], [place]. Assessment & Plan (07/04/2019 7:48 PM CDT): - no plans to initiate care [place] - gave Rx for doxylamine/pyridoxine for nausea - encouraged smoking cessation; recommended she d/w Dr. Addison Denson when she establishes care Abdominal pain in 07/04/2019 Overview (07/04/2019): 07/04/2019: presented to [facility], r/o for acute process. Transfer to [facility] for dating confirmation. Reports no BM [...] on file Legal Sex Female 11:55 PM CRITICAL CARE CLINICAL NURSE SPECIALIST Gender Identity Not on file Sexual [...] Comments Blood Pressure 101/69 12/31/2024 5:25 PM CRITICAL CARE CLINICAL NURSE SPECIALIST Pulse 77 12/31/2024 5:25 PM CRITICAL CARE CLINICAL NURSE SPECIALIST Temperature 37.1 C (98.7 F) 12/31/2024 2:09 PM CRITICAL CARE CLINICAL NURSE SPECIALIST Respiratory Rate 18 12/31/2024 5:25 PM CRITICAL CARE CLINICAL NURSE SPECIALIST Oxygen Saturation 100% 12/31/2024 5:25 PM CRITICAL CARE CLINICAL NURSE SPECIALIST Inhaled Oxygen Concentration - - Weight 72.7 kg (160 lb 4.4 oz) 12/31/2024 2:09 P M CRITICAL CARE CLINICAL NURSE SPECIALIST Height 165.1 cm (5' 5) 12/31/2024 2:09 PM CRITICAL CARE CLINICAL NURSE SPECIALIST Body Mass Index 26.67 12/31/2024 2:09 PM CRITICAL CARE CLINICAL NURSE SPECIALIST Plan of Treatment Health Maintenance Due [...] patient's age to complete this topic Insurance [facility] Care Teams Director Pharmacovigilance Relationship Specialty Start Date End Date Tammi Menon LauraDOREEN [address] Pediatric Emerg. Dept. [place] [id number] PCP - General Family Medicine 12/31/24
--- OUTSIDE RECORDS SUMMARY | 2025-09-16 18:20 | XMS_ITS ---
Author Organization Unknown Address [address] [place] [phone] Phone Care Team Providers Care Commodity Broker Name Role Phone MARK Fernandez Attending Unavailable [...] if indicated - Collect Date/Time: 05/12/2024 22:50 [facility] ID: [id number] [address] [place], [place], [phone] LOINC: 66049-2 Test Value Unit Reference Range Code Code System Flag UR SOURCE CLEAN CATCH 50557-7 LOINC COLOR YELLOW YELLOW 5778-6 LOINC CLARITY SL CLOUDY CLEAR 68552-8 LOINC SPEC GRAVITY 1.025 1.000-1.030 5811-5 LOINC PH 6.0 5.0 - 6.5 5803-2 LOINC LEUK EST NEGATIVE NEGATIVE 5799-2 LOINC NITRATE NEGATIVE NEGATIVE PROTEIN NEGATIVE NEGATIVE 5804-0 LOINC GLUCOSE NEGATIVE NEGATIVE 98549-0 LOINC KETONES NEGATIVE NEGATIVE 67621-8 LOINC UROBILINOGEN 0.2 NEGATIVE 5818-0 LOINC BILIRUBIN NEGATIVE NEGATIVE 84866-7 LOINC BLOOD NEGATIVE NEGATIVE 01639-3 LOINC WBC 2-5 0 - 2 83427-8 LOINC RBC 0-2 0 - 2 14817-9 LOINC EPITHELIAL MODERATE RARE-FEW 98469-2 LOINC A BACTERIA 1+ NONE SEEN 34566-4 LOINC MUCUS FEW NONE SEEN 8247-9 LOINC YEAST NOT PRESENT NOT PRESENT 77475-9 LOINC CASTS NONE SEEN 07433-4 LOINC CRYSTALS NONE SEEN 37121-3 LOINC CULTURE? NO 8251-1 LOINC DIAGNOSIS N/A MAGNESIUM - Collect Date/Patricio e: 05/12/2024 21:25 [facility] ID: [id number] [address] [place], [place], [phone] LOINC: 74298-1 Test Value Unit Reference Range Code Code System Flag MAGNESIUM 1.8 mg/dL L=1.6 H=2.3 54704-5 LOINC CBC W/ DIFF - Collect Date/T randall: 05/12/2024 21:25 [facility] ID: [id number] [address] [place], [place], [address] LOINC: 80098-8 Test Value Unit Reference Range Code Code System Flag WBC 8.5 10^3uL L=4.8 H=10.8 RBC 4.72 10^6uL L=4.20 H=5.40 HEMOGLOBIN 12.2 g/dL L=12.0 H=16.0 718-7 LOINC HEMATOCRIT 39.0 VOL% L=37.0 H=47.0 4544-3 LOINC MCV 82.6 fL L=81.0 H=99.0 MCH 25.8 pg L=27.0 H=32.0 L MCHC 31.3 g/dL L=32.0 H=36.0 L PLATELETS 278 10^3uL L=100 H=400 35247-4 LOINC RDW 13.5 % L=11.7 H=15.5 %GRAN 47.6 % L=40.0 H=70.0 05477-6 LOINC %LYMPH 39.8 % L=20.0 H=45.0 736-9 LOINC %MONO 8.8 % L=2.0 H=10.0 24833-8 LOINC %EOS 3.3 % L=0.0 H=6.0 713-8 LOINC %BASO 0.4 % L=0.0 H=3.0 706-2 LOINC #NEUT 4.1 10^3uL L=1.9 H=7.6 64559-6 LOINC #LYMPH 3.4 10^3uL L=0.9 H=4.9 46713-9 LOINC #MONO 0.8 10^3uL L=0.1 H=0.9 70199-8 LOINC #EOS 0.3 10^3uL L=0.0 H=0.6 712-0 LOINC #BASO 0.03 10^3uL L=0.00 H=0.10 69893-9 LOINC #IM GRANS 0.0 10^3uL L=0.0 H=7.0 07583-7 LOINC %IM GRANS 0.1 % L=0.0 H=5.0 19076-3 LOINC %NRB 0.0 L=0.0 H=0.2 66767-8 LOINC #NRB 0.000 L=0.000 H=0.012 99865-4 LOINC MANUAL DIFF NOT INDICATED RBC MORPH NOT INDICATED COMPREHENSIVE METABOLIC PANE L - Collect Date/Time: 05/12/2024 21:25 [facility] ID: [id number] [address] [place], [place], [address] LOINC: 10535-3 Test Value Unit Reference Range Code Code [...] 2028-9 LOINC ANION GAP 8 L=10 H=20 08280-2 LOINC L OSMOLALITY 289 mOs/kG L=280 H=296 30042-4 LOINC BUN/CREAT 20.0 3097-3 LOINC CALCIUM 9.0 mg/dL L=8.3 H=10.5 27960-7 LOINC AST 28 U/L L=15 H=46 1920-8 LOINC ALT 20 U/L L=9 H=72 1742-6 LOINC ALKALINE PHOS 107 U/L L=38 H=126 6768-6 LOINC TOTAL BILI 0.2 mg/dL L=0.2 H=1.3 1975-2 LOINC ALBUMIN 4.1 G/dL L=3.5 H=5.0 1751-7 LOINC TOTAL PROTEIN 7.1 g/L L=6.3 H=8.2 2885-2 LOINC A/G RATIO 1.4 86087-3 LOINC AGE 24 44520-3 LOINC eGFR NON-AFR 81 ml/min eGFR AFR AMER 98 ml/min TSH - Collect Date/Time: 21:25 [facility] ID: [id number] [address] [place], [place], [address] LOINC: 90039-5 Test Value Unit Reference Range Code Code System Flag TSH. 0.325 uIU/L L=0.470 H=4.680 40912-8 LOINC L Social History Type Status Start Date End Date Code Code Syst em Smoking History Never smoker (Never Smoked) 386692811 SNOMED CT Sex Female Assessment You had [...] 6002 SNOMED-CT UNSPECIFIED ABDOMINAL PAIN active 215 01750 SNOMED-CT Allergies and Adverse Reactions Allergy Substance Reaction Severity Start Date Concern Status Co de Code System AMOXICILLIN Active 723 RxNorm TERBUTALINE Active 87922 RxNorm Plan of Treatment Stress Test Treadmill 01/21/2025 Business Objects Consult 04/27/2025 Encounters Encounter Diagnosis Start Date Code Code Sys tem Unspecified pre-eclampsia, unspecified trimester 05/12 SNOMED-CT Personal Care Team Section Performer Name Performer Role Active Date Inactive Da te KRAIG ESTRAAD PCP - Primary care physician 2021-10 0-24 2024-09-12 KRAIG ESTRADA PCP - Primary care physician 2023-0 1-10 2024-09-12 KRAIG ESTRADA PCP - Primary care physician 0 1-10 2024-09-12 KRAIG ESTRADA PCP - Primary care physician 2023-0 7-16 2024-09-12 Hong Abdi PCP - Primary care physician 2024-09-12
--- OUTSIDE RECORDS SUMMARY | 2025-09-16 18:20 | XMS_ITS ---
Author Organization Unknown Address [address] [place] [phone] Phone Care Team Providers Care Track Leader Name Role Phone MARK Fernandez Attending Unavailable [...] D DIMER - Collect Date/Time: 06/08/2024 09:45 [facility] [id number] [address] [place], [place], [phone] LOINC: Test Value Unit Reference Range Code Code System Flag DDIMER 0.35 mg/L FEU L=0.00 H=0.50 Social History Type Status Start Date End Date Code Code Syst em Smoking History Never smoker (Never Smoked) 203880451 SNOMED CT Sex Female Assessment You had [...] 6002 SNOMED-CT UNSPECIFIED ABDOMINAL PAIN active 215 18568 SNOMED-CT Allergies and Adverse Reactions Allergy Substance Reaction Severity Start Date Concern Status Co de Code System AMOXICILLIN Active 723 RxNorm TERBUTALINE Active 15426 RxNorm Plan of Treatment Stress Test Treadmill 01/21/2025 Environmental Emergencies Planner Consult 04/27/2025 Encounters Encounter Diagnosis Start Date [...]
--- OUTSIDE RECORDS SUMMARY | 2025-09-16 18:20 | XMS_ITS ---
Author Organization Unknown Address [address] [place] [phone] Phone Care Team Providers Care Superintendent Landfill Operations Name Role Phone LINDA WRIGHT Attending Unavailable [...] DIFF - Collect Date/T randall: 09/12/2024 09:27 [facility] ID: [id number] [address] [place], [place], [address] LOINC: 17075-8 Test Value Unit Reference Range Code Code System Flag WBC 7.6 10^3uL L=4.8 H=10.8 RBC 4.83 10^6uL L=4.20 H=5.40 HEMOGLOBIN 13.1 g/dL L=12.0 H=16.0 718-7 LOINC HEMATOCRIT 40.9 VOL% L=37.0 H=47.0 4544-3 LOINC MCV 84.7 fL L=81.0 H=99.0 MCH 27.1 pg L=27.0 H=32.0 MCHC 32.0 g/dL L=32.0 H=36.0 PLATELETS 305 10^3uL L=100 H=400 64468-2 LOINC RDW 12.1 % L=11.7 H=15.5 %GRAN 53.6 % L=40.0 H=70.0 49183-9 LOINC %LYMPH 34.1 % L=20.0 H=45.0 736-9 LOINC %MONO 8.1 % L=2.0 H=10.0 51878-1 LOINC %EOS 3.5 % L=0.0 H=6.0 713-8 LOINC %BASO 0.4 % L=0.0 H=3.0 706-2 LOINC #NEUT 4.1 10^3uL L=1.9 H=7.6 17810-3 LOINC #LYMPH 2.6 10^3uL L=0.9 H=4.9 33053-1 LOINC #MONO 0.6 10^3uL L=0.1 H=0.9 46229-7 LOINC #EOS 0.3 10^3uL L=0.0 H=0.6 712-0 LOINC #BASO 0.03 10^3uL L=0.00 H=0.10 11131-9 LOINC #IM GRANS 0.0 10^3uL L=0.0 H=7.0 89780-3 LOINC %IM GRANS 0.3 % L=0.0 H=5.0 27325-6 LOINC %NRB 0.0 L=0.0 H=0.2 92151-4 LOINC #NRB 0.000 L=0.000 H=0.012 15823-9 LOINC MANUAL DIFF NOT INDICATED RBC MORPH NOT INDICATED COMPREHENSIVE METABOLIC PANE L - Collect Date/Time: 09/12/2024 09:27 [facility] ID: [id number] [address] [place], [place], [address] LOINC: 06233-7 Test Value Unit Reference Range Code Code [...] 2028-9 LOINC ANION GAP 14 L=10 H=20 87099-2 LOINC OSMOLALITY 291 mOs/kG L=280 H=296 82423-3 LOINC BUN/CREAT 24.3 3097-3 LOINC CALCIUM 9.6 mg/dL L=8.3 H=10.5 59019-3 LOINC AST 45 U/L L=15 H=46 1920-8 LOINC ALT 45 U/L L=9 H=72 1742-6 LOINC ALKALINE PHOS 78 U/L L=38 H=126 6768-6 LOINC TOTAL BILI 0.5 mg/dL L=0.2 H=1.3 1975-2 LOINC ALBUMIN 4.7 G/dL L=3.5 H=5.0 1751-7 LOINC TOTAL PROTEIN 8.1 g/L L=6.3 H=8.2 2885-2 LOINC A/G RATIO 1.4 35536-3 LOINC AGE 24 77075-3 LOINC eGFR NON-AFR 108 ml/min eGFR AFR AMER 131 ml/min TSH / REFLEX FT4 - Collect D ate/Time: 09/12/2024 09:27 [facility] ID: [id number] [address] [place], [place], [id number] LOINC: Test Value Unit Reference Range Code Code System Flag TSH 0.947 uIU/L L=0.470 H=4.680 64268-0 LOINC Social History Type Status Start Date End Date Code Code Syst em Smoking History Never smoker (Never Smoked) 140966503 SNOMED CT Sex Female Assessment You had [...] 6002 SNOMED-CT UNSPECIFIED ABDOMINAL PAIN active 215 22297 SNOMED-CT Allergies and Adverse Reactions Allergy Substance Reaction Severity Start Date Concern Status Co de Code System AMOXICILLIN Active 723 RxNorm TERBUTALINE Active 60760 RxNorm Plan of Treatment Stress Test Treadmill 01/21/2025 Press Smith Helper Consult 04/27/2025 Encounters Encounter Diagnosis Start Date [...]
--- OUTSIDE RECORDS SUMMARY | 2025-09-16 18:20 | XMS_ITS ---
Author Organization Unknown Address [address] [place] [phone] Phone Care Team Providers Care Realty Specialist Name Role Phone MARK Fernandez Attending Unavailable [...] em Smoking History Never smoker (Never Smoked) 079195767 SNOMED CT Sex Female Assessment You had [...] 6002 SNOMED-CT UNSPECIFIED ABDOMINAL PAIN active 215 36289 SNOMED-CT Allergies and Adverse Reactions Allergy Substance Reaction Severity Start Date Concern Status Co de Code System AMOXICILLIN Active 723 RxNorm TERBUTALINE Active 67507 RxNorm Plan of Treatment Stress Test Treadmill 01/21/2025 Field Artillery Officer Consult 04/27/2025 Encounters Encounter Diagnosis Start Date [...]
--- OUTSIDE RECORDS SUMMARY | 2025-09-16 18:20 | XMS_ITS ---
Author Organization Unknown Address [address] [place] [phone] Phone Care Team Providers Care Color Straining Bag Washer Name Role Phone ABDIAS EDMONDS Attending Unavailable [...] RSV PCR - Collect Date/Time: 05/14/2024 11:48 [facility] ID: [id number] [address] [place] [address], [id number] LOINC: 96199-3 Test Value Unit Reference Range Code Code System Flag SARS CoV2 PCR NEGATIVE FLU A PCR NEGATIVE FLU B PCR NEGATIVE RSV PCR NEGATIVE SEND TO [facility]? NO GROUP A STREP BY PCR - Colle ct Date/Time: 05/14/2024 11:48 [facility] ID: [id number] [address] [place] [address], [id number] LOINC: 90276-4 Test Value Unit Reference Range Code Code System Flag GRP A STREP PCR NEGATIVE NORMAL: NEGATIVE Social History Type Status Start Date End Date Code Code Syst em Smoking History Never smoker (Never Smoked) 593166767 SNOMED CT Sex Female Assessment You had [...] 6002 SNOMED-CT UNSPECIFIED ABDOMINAL PAIN active 215 79414 SNOMED-CT Allergies and Adverse Reactions Allergy Substance Reaction Severity Start Date Concern Status Co de Code System AMOXICILLIN Active 723 RxNorm TERBUTALINE Active 02316 RxNorm Plan of Treatment Stress Test Treadmill 01/21/2025 Facilities Management Executive Consult 04/27/2025 Encounters Encounter Diagnosis Start Date Code Code Sys tem Acute upper respiratory infection, unspecified 024 SNOMED-CT Personal Care Team Section Performer Name Performer Role Active Date Inactive Da te KRAIG ESTRADA PCP - Primary care physician 2021-102024-09-12 KRAIG ESTRADA PCP - Primary care physician -10 2024-09-12 KRAIG ESTRADA PCP - Primary care physician 0 -10 2024-09-12 KRAIG ESTRADA PCP - Primary care physician -16 2024-09-12 Hong Abdi PCP - Primary care physician 2024-09-12
--- OUTSIDE RECORDS SUMMARY | 2025-09-16 18:20 | XMS_ITS | Encounter Summary ---
Author Organization [facility] Healthcare Address [address] [place] [address] Care Team Providers Care Property Utilization Manager Name Role Phone Kera Flanagan NP Primary Care Provider [phone] Tammi Menon APRN Primary Care Provider Encounter Details Date Type Department Care Team (Late st Contact Info) Description 10/25/2023 Orders Only [facility] Home Care Services [address] [place] [address] Carli Whitaker, [facility] Social History Tobacco Use Types Packs/Day [...] on file Legal Sex Female 11:55 PM CENTRAL SUPPLY AIDE Gender Identity Not on file Sexual Orientation Not on file documented as of this encounter Functional Status * BP Location Answer Date of Assessment Author Left arm 10/25/2023 10:30 AM CENTRAL SUPPLY AIDE Niharika Griffin RN * BP Location Answer Date of Assessment Author Left arm 10/25/2023 10:30 AM CENTRAL SUPPLY AIDE Niharika Griffin RN documented as of this encounter Plan of Treatment Not on file documented as of this encounter Visit Diagnoses Not on filedocumented in this encounter Additional Health Concerns Infection Onset Date Last Indicated Resolved Time COVID: Suspected 12/31/2024 12/31/2024 12/31/2024 3:10 PM CENTRAL SUPPLY AIDE documented as of this encounter Care Teams Property Utilization Manager Relationship Specialty Start Date End Date Kera Flanagan, [place] PCP - General 05/30/22 12/30/24 Tammi Menon APRN [address] [place] [address] PCP - General Family Medicine 12/31/24 documented as of this encounter
--- OUTSIDE RECORDS SUMMARY | 2025-09-16 18:21 | XMS_ITS ---
Author Organization Unknown Address [address] [place] [phone] Phone Care Team Providers Care Clinical Informatics Spec Name Role Phone RENATE MOORE Attending Unavailable SEAN Balderrama Primary Unavailable Immunization [...] DIFF - Collect Date/T randall: 10/06/2023 12:25 [facility] ID: [id number] [address] [place], [place], [id number] LOINC: 77985-1 Test Value Unit Reference Range Code Code System Flag WBC 10.5 10^3uL L=4.8 H=10.8 RBC 4.02 10^6uL L=4.20 H=5.40 L HEMOGLOBIN 11.2 g/dL L=12.0 H=16.0 718-7 LOINC L HEMATOCRIT 33.3 VOL% L=37.0 H=47.0 4544-3 LOINC L MCV 82.8 fL L=81.0 H=99.0 MCH 27.9 pg L=27.0 H=32.0 MCHC 33.6 g/dL L=32.0 H=36.0 PLATELETS 306 10^3uL L=100 H=400 32492-6 LOINC RDW 12.1 % L=11.7 H=15.5 %GRAN 78.1 % L=40.0 H=70.0 88486-4 LOINC H %LYMPH 14.2 % L=20.0 H=45.0 736-9 LOINC L %MONO 6.5 % L=2.0 H=10.0 52797-7 LOINC %EOS 0.6 % L=0.0 H=6.0 713-8 LOINC %BASO 0.2 % L=0.0 H=3.0 706-2 LOINC #NEUT 8.2 10^3uL L=1.9 H=7.6 51833-9 LOINC H #LYMPH 1.5 10^3uL L=0.9 H=4.9 57556-9 LOINC #MONO 0.7 10^3uL L=0.1 H=0.9 31238-6 LOINC #EOS 0.1 10^3uL L=0.0 H=0.6 712-0 LOINC #BASO 0.02 10^3uL L=0.00 H=0.10 94624-8 LOINC #IM GRANS 0.0 10^3uL L=0.0 H=7.0 76237-6 LOINC %IM GRANS 0.4 % L=0.0 H=5.0 00196-2 LOINC %NRB 0.0 L=0.0 H=0.2 73195-9 LOINC #NRB 0.000 L=0.000 H=0.012 06795-4 LOINC MANUAL DIFF NOT INDICATED RBC MORPH NOT INDICATED COMPREHENSIVE METABOLIC PANE L - Collect Date/Time: 10/06/2023 12:25 [facility] ID: [id number] [place], [place], [id number] LOINC: 54626-9 Test Value Unit Reference Range Code Code [...] 2028-9 LOINC ANION GAP 14 L=10 H=20 98235-7 LOINC OSMOLALITY 283 mOs/kG L=280 H=296 63569-9 LOINC BUN/CREAT 27.5 3097-3 LOINC CALCIUM 9.3 mg/dL L=8.3 H=10.5 61880-6 LOINC AST 21 U/L L=15 H=46 1920-8 LOINC ALT 13 U/L L=9 H=72 1742-6 LOINC ALKALINE PHOS 62 U/L L=38 H=126 6768-6 LOINC TOTAL BILI 0.3 mg/dL L=0.2 H=1.3 1975-2 LOINC ALBUMIN 4.3 G/dL L=3.5 H=5.0 1751-7 LOINC TOTAL PROTEIN 7.5 g/L L=6.3 H=8.2 2885-2 LOINC A/G RATIO 1.3 50906-5 LOINC AGE 23 99757-4 LOINC eGFR NON-AFR 208 ml/min eGFR AFR AMER 252 ml/min PROTIME - Collect Date/Time: 10/06/2023 12:25 [facility] ID: [id number] [place], [id number] LOINC: 21604-7 Test Value Unit Reference Range Code Code System Flag PT 10.5 Sec L=9.7 H=11.7 04674-5 LOINC INR 1.0 Sec L=0.9 H=1.1 62441-9 LOINC PTT - Collect Date/Time: 07/2023 12:25 [facility] ID: [id number] [place] [address], [id number] LOINC: 03147-7 Test Value Unit Reference Range Code Code System Flag PTT 26.3 Sec L=23.0 H=31.2 LIPASE - Collect Date/Time: 10/06/2023 12:25 [facility] ID: [id number] [place] [address], [id number] LOINC: 3040-3 Test Value Unit Reference Range Code Code System Flag LIPASE 63 U/L L=23 H=300 3040-3 LOINC BETA HCG-QUANT - Collect Neil e/Time: 10/06/2023 12:25 [facility] ID: [id number] [place] [address], [id number] LOINC: 82197-8 Test Value Unit Reference Range Code Code System Flag BETA HCG-QUANT 473745.00 mIU/mL L=0.00 H=6.00 77310-2 LOINC H Social History Type Status Start Date End Date Code Code Syst em Smoking History Never smoker (Never Smoked) 377610260 SNOMED CT Sex Female Assessment You had [...] 6002 SNOMED-CT UNSPECIFIED ABDOMINAL PAIN active 215 73568 SNOMED-CT Allergies and Adverse Reactions Allergy Substance Reaction Severity Start Date Concern Status Co de Code System AMOXICILLIN Active 723 RxNorm TERBUTALINE Active 82855 RxNorm Plan of Treatment Stress Test Treadmill 01/21/2025 Employee'S Representative Consult 04/27/2025 Encounters Encounter Diagnosis Start Date [...]
--- OUTSIDE RECORDS SUMMARY | 2025-09-16 18:21 | XMS_ITS ---
Author Organization Unknown Address [address] [place] [address] [phone] Phone Care Team Providers Care Shelving Supervisor Name Role Phone ANNABELLE GONZALEZ Attending Unavailable [...] Jarad Root M.D. AR: [place]CE[place] Report ID: [id number] Reading Location: [place] [address] Social History Type Status Start Date End Date Code Code Syst em Smoking History Never smoker (Never Smoked) 084152578 SNOMED CT Sex Female Assessment You had [...] 6002 SNOMED-CT UNSPECIFIED ABDOMINAL PAIN active 215 44319 SNOMED-CT Allergies and Adverse Reactions Allergy Substance Reaction Severity Start Date Concern Status Co de Code System AMOXICILLIN Active 723 RxNorm TERBUTALINE Active 26289 RxNorm Plan of Treatment Stress Test Treadmill 01/21/2025 Quality Control Inspector Consult 04/27/2025 Encounters Encounter Diagnosis Start [...]
--- OUTSIDE RECORDS SUMMARY | 2025-09-16 18:21 | XMS_ITS ---
Author Organization Unknown Address [address] [place] [address] [phone] Phone Care Team Providers Care Trimmer Meat Name Role Phone MIKE CURTIS Attending Unavailable [...] LEVEL - Collect Neil e/Time: 07/10/2024 09:21 [facility] ID: [id number] [address] [place], [place], [id number] LOINC: 87674-7 Test Value Unit Reference Range Code Code System Flag TROPONIN < 0.012 ng/mL L=0.000 H=0.033 32915-7 LOINC D DIMER - Collect Date/Time: 07/10/2024 09:21 [facility] ID: [id number] [address] [place], [place], [id number] LOINC: Test Value Unit Reference Range Code Code System Flag DDIMER 0.95 mg/L FEU L=0.00 H=0.50 H Social History Type Status Start Date End Date Code Code Syst em Smoking History Never smoker (Never Smoked) 366701367 SNOMED CT Sex Female Assessment You had [...] 6002 SNOMED-CT UNSPECIFIED ABDOMINAL PAIN active 215 11259 SNOMED-CT Allergies and Adverse Reactions Allergy Substance Reaction Severity Start Date Concern Status Co de Code System AMOXICILLIN Active 723 RxNorm TERBUTALINE Active 84406 RxNorm Plan of Treatment Stress Test Treadmill 01/21/2025 Executive Administrator Consult 04/27/2025 Encounters Encounter Diagnosis Start Date [...]
--- OUTSIDE RECORDS SUMMARY | 2025-09-16 18:22 | XMS_ITS ---
Author Organization Unknown Address [address] [place] [address] [phone] Phone Care Team Providers Care Manager Store Name Role Phone SHAYNA CRESPO Attending Unavailable [...] if indicated - Collect Date/Time: 09/24/2023 11:29 [facility] ID: [id number] [place] [address], [id number] LOINC: 83198-4 Test Value Unit Reference Range Code Code System Flag UR SOURCE CLEAN CATCH 61104-7 LOINC COLOR YELLOW YELLOW 5778-6 LOINC CLARITY SL CLOUDY CLEAR 97973-1 LOINC SPEC GRAVITY 1.025 1.000-1.030 5811-5 LOINC PH 6.0 5.0 - 6.5 5803-2 LOINC LEUK EST NEGATIVE NEGATIVE 5799-2 LOINC NITRATE NEGATIVE NEGATIVE PROTEIN TRACE NEGATIVE 5804-0 LOINC GLUCOSE NEGATIVE NEGATIVE 89650-8 LOINC KETONES 1+ NEGATIVE 70989-8 LOINC A UROBILINOGEN 0.2 NEGATIVE 5818-0 LOINC BILIRUBIN NEGATIVE NEGATIVE 03480-9 LOINC BLOOD NEGATIVE NEGATIVE 79909-8 LOINC WBC 0-2 0 - 2 39065-3 LOINC RBC 0-2 0 - 2 12615-4 LOINC EPITHELIAL MODERATE RARE-FEW 32421-7 LOINC A BACTERIA 1+ NONE SEEN 40337-1 LOINC MUCUS 2+ NONE SEEN 8247-9 LOINC A YEAST NOT PRESENT NOT PRESENT 63215-2 LOINC CASTS NONE SEEN 83043-3 LOINC CRYSTALS NONE SEEN 70989-8 LOINC CULTURE? NO 8251-1 LOINC DIAGNOSIS N/A CBC W/ DIFF - Collect Date/T randall: 09/24/2023 10:23 [facility] ID: [id number] [address] [place], [place], [phone] LOINC: 28041-0 Test Value Unit Reference Range Code Code System Flag WBC 8.5 10^3uL L=4.8 H=10.8 RBC 3.68 10^6uL L=4.20 H=5.40 L HEMOGLOBIN 10.3 g/dL L=12.0 H=16.0 718-7 LOINC L HEMATOCRIT 30.6 VOL% L=37.0 H=47.0 4544-3 LOINC L MCV 83.2 fL L=81.0 H=99.0 MCH 28.0 pg L=27.0 H=32.0 MCHC 33.7 g/dL L=32.0 H=36.0 PLATELETS 276 10^3uL L=100 H=400 69837-5 LOINC RDW 11.9 % L=11.7 H=15.5 %GRAN 71.4 % L=40.0 H=70.0 20548-5 LOINC H %LYMPH 19.1 % L=20.0 H=45.0 736-9 LOINC L %MONO 8.3 % L=2.0 H=10.0 66501-5 LOINC %EOS 0.6 % L=0.0 H=6.0 713-8 LOINC %BASO 0.1 % L=0.0 H=3.0 706-2 LOINC #NEUT 6.1 10^3uL L=1.9 H=7.6 66914-3 LOINC #LYMPH 1.6 10^3uL L=0.9 H=4.9 55490-0 LOINC #MONO 0.7 10^3uL L=0.1 H=0.9 40149-9 LOINC #EOS 0.1 10^3uL L=0.0 H=0.6 712-0 LOINC #BASO 0.01 10^3uL L=0.00 H=0.10 23321-9 LOINC #IM GRANS 0.0 10^3uL L=0.0 H=7.0 00680-3 LOINC %IM GRANS 0.5 % L=0.0 H=5.0 93622-3 LOINC %NRB 0.0 L=0.0 H=0.2 83378-2 LOINC #NRB 0.000 L=0.000 H=0.012 13892-4 LOINC MANUAL DIFF NOT INDICATED RBC MORPH NOT INDICATED COMPREHENSIVE METABOLIC PANE L - Collect Date/Time: 09/24/2023 10:23 [facility] ID: [id number] [place], [place], [id number] LOINC: 10448-6 Test Value Unit Reference Range Code Code [...] 2028-9 LOINC ANION GAP 8 L=10 H=20 65248-2 LOINC L OSMOLALITY 278 mOs/kG L=280 H=296 12197-8 LOINC L BUN/CREAT 18.0 3097-3 LOINC CALCIUM 8.6 mg/dL L=8.3 H=10.5 47685-7 LOINC AST 23 U/L L=15 H=46 1920-8 LOINC ALT 22 U/L L=9 H=72 1742-6 LOINC ALKALINE PHOS 61 U/L L=38 H=126 6768-6 LOINC TOTAL BILI 0.3 mg/dL L=0.2 H=1.3 1975-2 LOINC ALBUMIN 3.9 G/dL L=3.5 H=5.0 1751-7 LOINC TOTAL PROTEIN 6.9 g/L L=6.3 H=8.2 2885-2 LOINC A/G RATIO 1.3 35209-1 LOINC AGE 23 64703-4 LOINC eGFR NON-AFR 161 ml/min eGFR AFR AMER 195 ml/min MAGNESIUM - Collect Date/Patricio e: 09/24/2023 10:23 [facility] ID: [id number] [place], [id number] LOINC: 85430-6 Test Value Unit Reference Range Code Code System Flag MAGNESIUM 1.7 mg/dL L=1.6 H=2.3 39142-0 LOINC HIV 4th GEN Ab 1&2 p24 Ag in -house - Collect Date/Time: 09/24/2023 10:23 [facility] ID: [id number] [address] [place], [place], [id number] LOINC: 30828-0 Test Value Unit Reference Range Code Code System Flag HIV-1 Ab NEGATIVE NORMAL: NON REACTIVE/NE HIV-2 Ab NEGATIVE HIV-p24 Ag NEGATIVE SEND TO IFC? NO REFLEX? NO 5778-6 LOINC Social History Type Status Start Date End Date Code Code Syst em Smoking History Never smoker (Never Smoked) 648777066 SNOMED CT Sex Female Assessment You had [...] 6002 SNOMED-CT UNSPECIFIED ABDOMINAL PAIN active 215 89405 SNOMED-CT Allergies and Adverse Reactions Allergy Substance Reaction Severity Start Date Concern Status Co de Code System AMOXICILLIN Active 723 RxNorm TERBUTALINE Active 92649 RxNorm Plan of Treatment Stress Test Treadmill 01/21/2025 Wood Carving Machine Operator Consult 04/27/2025 Encounters Encounter Diagnosis [...] ESTRADA PCP - Primary care physician 2023- 7-16 2024-09-12 Hong Lausen PCP - Primary care physician 2024-09-12
--- OUTSIDE RECORDS SUMMARY | 2025-09-16 18:22 | XMS_ITS ---
Author Organization Unknown Address [address] [place] [address] [phone] Phone Care Team Providers Care Pallet Rectifier Name Role Phone RUFUS SEGAL Attending Unavailable [...] em Smoking History Never smoker (Never Smoked) 534015395 SNOMED CT Sex Female Assessment You had [...] 6002 SNOMED-CT UNSPECIFIED ABDOMINAL PAIN active 215 56165 SNOMED-CT Allergies and Adverse Reactions Allergy Substance Reaction Severity Start Date Concern Status Co de Code System AMOXICILLIN Active 723 RxNorm TERBUTALINE Active 85688 RxNorm Plan of Treatment Stress Test Treadmill 01/21/2025 Washer And Crusher Tender Consult 04/27/2025 Encounters Encounter Diagnosis Start Date Code Code Sys tem Acute sinusitis, unspecified 07/31/2024 SNOMED-CT Personal Care Team Section Performer Name Performer Role Active Date Inactive Da te KRAIG ESTRADA PCP - Primary care physician 2021-10 0-24 2024-09-12 KRAIG ESTRADA PCP - Primary care physician 2023-0 1-10 2024-09-12 KRAIG ESTRADA PCP - Primary care physician 2023-0 1-10 2024-09-12 KRAIG ESTRDAA PCP - Primary care physician 2023-0 7-16 2024-09-12 Hong Abdi PCP - Primary care physician 2024-09-12
--- OUTSIDE RECORDS SUMMARY | 2025-09-16 18:22 | XMS_ITS ---
Author Organization Unknown Address [address] [place] [address] [phone] Phone Care Team Providers Care Electronic Scale Assembler And Tester Name Role Phone MARK Fernandez Attending Unavailable [...] em Smoking History Never smoker (Never Smoked) 836353423 SNOMED CT Sex Female Assessment You had [...] 6002 SNOMED-CT UNSPECIFIED ABDOMINAL PAIN active 215 63308 SNOMED-CT Allergies and Adverse Reactions Allergy Substance Reaction Severity Start Date Concern Status Co de Code System AMOXICILLIN Active 723 RxNorm TERBUTALINE Active 96628 RxNorm Plan of Treatment Stress Test Treadmill 01/21/2025 Physician Consult 04/27/2025 Encounters Encounter Diagnosis Start Date [...]
--- OUTSIDE RECORDS SUMMARY | 2025-09-16 18:22 | XMS_ITS ---
Author Organization Unknown Address [address] [place] [address] [phone] Phone Care Team Providers Care Aircraft Part Assembler Name Role Phone MARK Fernandez Attending Unavailable [...] em Smoking History Never smoker (Never Smoked) 745349367 SNOMED CT Sex Female Assessment You had [...] 6002 SNOMED-CT UNSPECIFIED ABDOMINAL PAIN active 215 26578 SNOMED-CT Allergies and Adverse Reactions Allergy Substance Reaction Severity Start Date Concern Status Co de Code System AMOXICILLIN Active 723 RxNorm TERBUTALINE Active 72463 RxNorm Plan of Treatment Stress Test Treadmill 01/21/2025 Dog License Officer Supervisor Consult 04/27/2025 Encounters Encounter Diagnosis Start [...]
--- NOTE | 2025-09-16 18:25 | PC.NURSE ---
175- Called Dr. Mcginnis to report CT scan results and vital signs. Pt also states her pain is resolved at this time from the caffeine pill. Dr. Mcginnis ordered to cancel the Hospitalist consult and DC pt. home.
--- NOTE | 2025-09-16 18:31 | PC.NURSE ---
0605- Spoke to pt about DC home. Pt is comfortable with going home at this time but is voicing concern about her anxiety and that she needs a medication that will work instantly for her anxiety. Pt. states she saw a psychiatrist today and that they wanted to prescribe her the same medication as Dr. Mcginnis. Pt. requests RN to call Dr. Mcginnis back and request a new anxiety medication. 0608- Called Dr. Mcginnis back per pt. request. Reported pt. concern surrounding her anxiety. MD states pt. has asked him about this before and MD unable to fufill this request. ordered for pt. to follow up at next OB appointment and to reach out to Alexa at [facility] [place] to discuss anxiety.
--- NOTE | 2025-11-03 13:07 | P.HP_ITS ---
H&P: HPI History of Present Illness Date/Time: 11/03/25 13:07 Chief Complaint: Headache Narrative: 25-year-old who is 3 weeks from a vaginal presents for headache. Hospitalist was consulted. CT of the head was obtained patient was ultimately discharged after a period of observation. Lab evaluation was performed and it was unremarkable. CT was unremarkable CT of the head PMFSH Past Medical History Medical History (Updated 11/03/25 @ 13:08 by Shawn Mcginnis MD) Reactive airway disease Former smoker Anxiety about health Miscarriage 10/15/25 Viral meningitis Anxiety Depression Surgical History Surgical History (Updated 11/03/25 @ 10:01 by Tamara Marin APRN) History of cholecystectomy Family History Family History Grandparent Diabetes mellitus Cardiac arrhythmia Sibling Asthma Mother Rheumatoid arthritis Diabetes mellitus Social History Social History Smoking packs per day: 0.25 Smoking cigarettes per day: 5.0 Smoking status: Former smoker Tobacco type: e-cigarettes/vaping Second hand tobacco smoke exposure: No Alcohol intake: never Substance use: never Substance use type: marijuana Lack of Transportation: No Lack of Food: Never True Current Housing: I Have Housing Concerned About Future Housing: No Difficulty Paying Gas/Electric Bills: No Difficulty Paying for Meds: No Currently Unemployed: No Education: Grade School Difficulty w/ Childcare or Family Care: YES Living arrangements: with family Additional living arrangements comments: mother and her children Gender identity (if verbalized by the patient): Female Sexual Orientation (if Verbalized by the Patient): Straight or Heterosexual Spiritual care concerns: No Meds Home Medications and Allergies Home Medications ?Medication ?Instructions ?Recorded ?Confirmed ?Type polysaccharide iron complex 150 mg 150 mg PO BIDWM #60 caps 09/05/25 11/03/25 Rx iron capsule albuterol sulfate 90 mcg/actuation 2 puff inhalation Q 4-6H PRN 11/03/25 11/03/25 Rx aerosol inhaler (Ventolin HFA) shortness of breath or wheezing #8.5 grams amitriptyline 10 mg tablet 10 mg PO QHS 3 months #90 t abs 11/03/25 11/03/25 Rx budesonide-formoterol HFA 80 2 puff inhalation BID #10 .2 grams 11/03/25 11/03/25 Rx mcg-4.5 mcg/actuation aerosol inhaler (Symbicort) Allergies Allergy/AdvReac Type Severity Reaction Status Date / Time terbutaline Allergy Severe Anaphylactic Verified 11/03/25 09:28 Shock amoxicillin (From Amoxil) AdvReac Palpitation Verified 11/03/25 09:28 s Assessment and Plan Assessment and plan (1) headache: Code(s): O90.89 - Other complications of the [place]er[place], not elsewhere classified; R51.9 - Headache, unspecified Status: Acute Plan 25-year-old who is 3 weeks from a vaginal presents for headache. Hospitalist was consulted. CT of the head was obtained patient was ultimately discharged after a period of observation. Lab evaluation was performed and it was unremarkable. CT was unremarkable CT of the head
== END 2025-09-16 18:00 | disposition home or self-care (01) ==
PROVIDERS: Admitting Provider Obstetrics & Gynecology; Visit Provider Obstetrics & Gynecology
DX: O90.89 Other complications of the puerperium, not elsewhere classified (principal); R51.9 Headache, unspecified
CPT/HCPCS: 36415; 70496; 70498; 80053; 84550; 85025; A9270; G0378; G0379; Q9967

== ENCOUNTER 2025-10-27 11:03 | Emergency (ER) | payer OTHER, SELFPAY ==
--- OUTSIDE RECORDS SUMMARY | 2025-10-26 15:35 | XMS_ITS | Encounter Summary ---
Author Organization [facility] Address [address] [place] [address] Care Team Providers Care Rehab Assistant Name Role Phone Tanner Paige MD Primary Care Provider [phone] Janell Celaya APNP Unavailable [phone] Tara Miranda ANP-BC Unavailable [phone] Roseanne Roper PATENT SOLICITOR-C Unavailable [phone] Reason for Visit * Reason Comments Headache Encounter Details Date Type Department Care Team (Late st Contact Info) Description 10/26/2025 3:35 PM CORPORATE RECRUITER - 10/26/2025 4:47 PM CORPORATE RECRUITER Emergency [facility] [address] [place] [address] Nacho Breen MD [address] [place] [id number] Headache Discharge Disposition: Home or Self Care (Routine [...] Recorded Patient Health Questionnaire-2 Score 0 05/13/2024 [facility] - Occupational Stress Questionnaire Answer [...] How often do you attend chur or congregational services? 1 to 4 times per year 08/29/2025 Do you belong to any clubs o r organizations such as judaism groups, unions, fraternal or athletic groups, or [...] and heating? Not hard at all 08/29/2025 [facility] - Occupational [...] time in the past 12 m [facility], were you homeless or living in a long term (including now)? No 08/29/2025 [id number] Health Literacy Answer Date Recor ded How often do you need to hav e someone help you when you read instructions, pamphlets, or other written material from your doctor or pharmacy? Never 08/29/2025 [facility] Utilities Answer Date Recorded In the [...] Sign Reading Time Taken Comments Blood Pressure 133/88 10/26/2025 4:30 PM CORPORATE RECRUITER Pulse 79 10/26/2025 3:42 PM CORPORATE RECRUITER Temperature 36.7 C (98 F) 10/26/2025 3:42 PM CORPORATE RECRUITER Respiratory Rate 22 10/26/2025 3:42 PM CORPORATE RECRUITER Oxygen Saturation 97% 10/26/2025 4:30 PM CORPORATE RECRUITER Inhaled Oxygen Concentration - - Weight 72.1 kg (159 lb) 10/26/2025 3:42 PM CORPORATE RECRUITER Height 165.1 cm (5' 5) 10/26/2025 3:42 PM CORPORATE RECRUITER Body Mass Index 26.46 10/26/2025 3:42 PM CORPORATE RECRUITER documented in this encounter Functional Status * Are you deaf or do you have serious difficulty hearing Answer Date of Assessment Author Status No 05/13/2024 1:23 AM CDT Mariama Murray RN Active * Are you [...] of Assessment Author Status No Risk Indicated 10/26/2025 3:39 PM CORPORATE RECRUITER Charlee Zeng RN Active * [place] Suicide Severity Rating Scale (Screener/Recent Self-Report) Question Answer Date of Assessment Author Status 1. Wish to be (Past 1 Month) No 10/26/2025 3:39 PM Evy Barriga RN Acti ve 2. Non-Specific Active Suicidal Thoughts (Past 1 Month) No 10/26/2025 3:39 PM Evy Barriga RN Acti ve 6. Suicidal Behavior (Lifetime) No 10/26/2025 3:39 PM Evy Barriga RN Acti ve documented as of this encounter Mental Status * Because of a physical, mental, or emotional condition, do you have serious difficulty concentrating, remembering, or making decisions? Answer Entry Date Author Status No 05/13/2024 1:23 AM Mariama Ferris RN Active documented in this encounter Discharge Instructions * Discharge Instructions* Nacho Breen MD - 10/26/2025 4:14 PM CORPORATE RECRUITER Follow-up with your primary doctor Please take Ativan twice a day as needed for anxiety. Hold Xanax. Follow-up with primary doctor for depression. If your depression get worse you need help. Required to come back to emergency room or see your primary physician ORATE RECRUITER ORATE RECRUITER * Attachments The following attachments cannot be sent through Care Everywhere. * Anxiety Discharge Instructions, Adult (Yemeni) * Cognitive-Behavioral Therapy (Yemeni) * Generalized anxiety disorder (Y[place]i) documented in this encounter Medications at Time of Discharge ALPRAZolam (XANAX) 0.25 MG tablet Take 1 tablet (0.25 mg total) by mouth 3 (three) times daily as needed for Anxiety. budesonide-formot brian (SYMBICORT) 80-4.5 MCG/ACT inhaler Inhale 2 puffs into the lungs 2 (two) times daily. clindamycin (CLEOCIN) 300 MG capsule Take 1 capsule (300 mg total) by mouth 3 (three) times daily for 10 days. 30 capsule 10/20/2025 10/30/2025 escitalopram (LEXAPRO) 5 MG tablet Take 1 tablet (5 mg total) by mouth daily. 10/19/2025 LORazepam (ATIVAN) 0.5 MG tabletIndications :Episode of anxiety,Headache Take 1 tablet (0.5 mg total) by mouth 3 (three) times daily for 3 days. 9 tablet 10/26/2025 10/29/2025 sertraline (ZOLOFT) 50 MG tablet 1 tablet (50 mg total) daily. 09/09/2025 documented as of this encounter ED Notes * Tracey Stover RN - 10/26/2025 4:27 PM CST Pt again asked and denies SI/HI. States she declines any further mental help today. ORATE RECRUITER * Nacho Breen MD - 10/26/2025 4:25 PM CST Chief Complaint Chief Complaint Patient presents with Headache History of Present Illness 25-year-old female present with a complaint of anxiety. Pt presents to ED from home with c/o headache and body aches onset 2 days ago. Pt crying during triage and states she has used tap water with her netipot 5 days ago and is now panicking that she usedtap water. Pt reports she has health anxiety. Pt reports she is depressed since giving 10/04, she states she is not suicidal or homicidal Or suicidal or homicidal. I discussed with her depression she says she has been on medicine. She has been on for 3 days. Xanax was not helping she really struggled for anxiety. Patient denies any headache dizziness nausea vomiting abdominal pain no urinary symptoms. Medical History ALLERGIES: Allergies Allergen Reactions Terbutaline Anaphylaxis Amoxil [Amoxicillin] Other (see comment) Irregular heart rate MEDICATIONS: Prior to Admission medications Medication Sig Start Date End Date Taking? Authorizing Provider escitalopram (LEXAPRO) 5 MG tablet Take 1 tablet (5 mg total) by mouth daily. 10/19/25 Yes Default History Genericprovider LORazepam (ATIVAN) 0.5 MG tablet Take 1 tablet (0.5 mg total) by mouth 3 (three) times daily for 3 days. 10/26/25 10/29/25 Yes Nacho Breen MD sertraline (ZOLOFT) 50 MG tablet 1 tablet (50 mg total) daily. 09/09/25 Yes Default History Genericprovider ALPRAZolam (XANAX) 0.25 MG tablet Take 1 tablet (0.25 mg total) by mouth 3 (three) times daily as needed for Anxiety. Default History Genericprovider budesonide-formoterol (SYMBICORT) 80-4.5 MCG/ACT inhaler Inhale 2 puffs into the lungs 2 (two) times daily. Default History Genericprovider clindamycin (CLEOCIN) 300 MG capsule Take 1 capsule (300 mg total) by mouth 3 (three) times daily for 10 days. 10/20/25 10/30/25 Fantasma Pedroza DO PAST MEDICAL HISTORY: Past Medical History[1] PAST SURGICAL HISTORY: Past Surgical History[2] FAMILY HISTORY: Family History[3] SOCIAL HISTORY: Social History[4] Review of Systems Review of Systems Physical Exam Filed Vitals: 10/26/25 1542 BP: (!) 166/107 Pulse: 79 Resp: 22 Temp: 98 ??F (36.7 ??C) TempSrc: Temporal SpO2: 98% Weight: 72.1 kg (159 lb) Height: 1.651 m (5' 5) Physical Exam Vitals and nursing note reviewed. Exam conducted with a civil engineering project manager present. Constitutional: Appearance: Normal appearance. HENT: Head: Normocephalic and atraumatic. Nose: Nose normal. Mouth/Throat: Mouth: Mucous membranes are dry. Eyes: Extraocular Movements: Extraocular movements intact. Conjunctiva/sclera: Conjunctivae normal. Pupils: Pupils are equal, round, and reactive to light. Cardiovascular: Rate and Rhythm: Normal rate and regular rhythm. Pulses: Normal pulses. Heart sounds: Normal heart sounds. Pulmonary: Effort: Pulmonary effort is normal. Abdominal: General: Abdomen is flat. Bowel sounds are normal. Palpations: Abdomen is soft. Musculoskeletal: General: Normal range of motion. Cervical back: Normal range of motion. Skin: General: Skin is warm. Neurological: General: No focal deficit present. Mental Status: She is alert. Mental status is at baseline. Diagnostic Studies / Procedures ELECTROCARDIOGRAMS: No results found for this visit on 10/26/25. LABORATORY STUDIES: No results found for this visit on 10/26/25. IMAGING STUDIES No orders to display ED Course / Medical Decision Making 25-year-old female history of anxiety. Having anxiety episode after using tap water of neti pot Denies any fever no nausea no vomiting She denies any chest pain or shortness of breath. Vital stable. Normal exam. I examined her scalp there was no rash or bruising. Explained that she feels better now. She says Xanax was not helping I give her some Ativan. Patientis not suicidal or homicidal. I offered her counseling she declined at this point. I offered her further treatment and admission she declines. She feels comfortable going home Ativan was given advised to continue her depression medicine without discharge she is hemodynamically stable Red flag instruction given all question answered EKG in the emergency room shows no acute ischemic changes normal sinus rhythm Medical Decision Making Risk Prescription drug management. Clinical Impression Episode of anxiety (Primary) Headache Disposition: Discharge [1] Past Medical History: Diagnosis Date Anxiety Chest pain at rest Costochondritis Dizziness Essential (primary) hypertension GERD (gastroesophageal reflux disease) High cholesterol IBS (irritable bowel syndrome) Migraines Palpitations Pleurisy Shortness of breath [2] Past Surgical History: Procedure Laterality Date CHOLECYSTECTOMY D&C AFTER DELIVERY 2018 LIGATE FALLOPIAN TUBE, Bilateral [3] Family History Problem Relation Name Age of Onset Hypertension Mother Lupus Mother Heart Attack Maternal Grandfather Stroke Maternal Grandfather [4] Social History Tobacco Use Smoking status: Former Current packs/day: 1.00 Types: Cigarettes Passive exposure: Current Smokeless tobacco: Never Vaping Use Vaping status: Never Used Substance Use Topics Alcohol use: Not Currently Drug use: Not Currently Nacho Breen MD 10/26/25 [id number] ORATE RECRUITER * Evy Zeng RN - 10/26/2025 3:44 PM CST Pt reports to nursing I can't take care of my baby, I feel depressed and manic Pt denied being homicidal or suicidal. Pt states she is following up with her PCP and her meds have been changed. Pt has Xanax to take at home as needed but reports she does not like the way it makes her feel. Pt reports her children are currently at home being cared for by someone else, pt did not state who was taking care of the kids or . made aware of statements made to nursing. ORATE RECRUITER * Evy Zeng RN - 10/26/2025 3:37 PM CST Pt presents to ED from home with c/o headache and body aches onset 2 days ago. Pt crying during triage and states she has used tap water with her netipot 5 days ago and is now panicking that she usedtap water. Pt reports she has health anxiety. Pt reports she is depressed since giving 10/04, she states she is not suicidal or homicidal. ORATE RECRUITER documented in this encounter Plan of Treatment Upcoming Encounters Date Type Department Care Team (Late st Contact Info) Description 11/01/2025 1:00 PM CORPORATE RECRUITER Telephone [facility] [address] [place] [address] Roseanne Roper NP-C [address] [place] [address] 11/04/2025 12:30 PM CORPORATE RECRUITER Office Visit [facility] [address] [place] [address] Tara Miranda, ANP- [address] [place], [place] [id number] 11/05/2025 6:00 AM CORPORATE RECRUITER Appointment [place] [address] [place] [address] Roseanne Roper NP-C [address] [place] [address] documented as of this encounter Procedures Procedure Name Priority Date/Time Associated Diagnosis Comments ECG 12-LEAD STAT 10/26/2025 4:34 PM CORPORATE RECRUITER documented in this encounter Results * ECG 12 lead (10/26/2025 4:34 PM CORPORATE RECRUITER) ECG QT 417 [facility] RAD ECG QTC [address] [facility] 10/26/2025 4:34 PM CORPORATE RECRUITER Narrative [facility] - 10/27/2025 6:04 AM CORPORATE RECRUITER [place] [address] [place] [address] Test Date: 2025-10-26 Pat Name: LIBRADO MEJIA Department: 3 Room: EXAM 404 Gender: Female Forester Aide: : 2000 Requested By: NACHO BREEN Order Number: [id number] Fifi MD: Jose Marie Measurements Intervals [place] Rate: 49 P: 73 NM: 136 QRS: 72 QRSD: 86 T: 9 QT: 417 QTc: 379 Interpretive Statements SINUS BRADYCARDIA ORATE RECRUITER Procedure Note Jose Marie MD - 10/27/2025 [facility] [address] [facility] [place] [address] Test Date: 2025-10-26 Pat Name: LIBRADO MEJIA Department: 3 Room: [place] [address] Gender: Female Forester Aide: : 2000 Requested By: NACHO BREEN Order Number: [id number] Reading MD: Jose Marie Measurements Intervals [place] Rate: 49 P: 73 NM: 136 QRS: 72 QRSD: 86 T: 9 QT: 417 QTc: 379 Interpretive Statements SINUS BRADYCARDIA ORATE RECRUITER us Nacho Breen MD ECG ORDERABLES Final Result [facility] documented in this encounter Visit Diagnoses Diagnosis Episode of anxiety- Primary Headache documented in this encounter Administered Medications Inactive Administered Medications - up to 3 most recent administrations Medication Order MAR Action Action Date Dose Rate Site LORazepam (ATIVAN) tablet 1 mg 1 mg, Oral, Once, 1 dose, On 10/26/25 at 1615 Given 10/26/2025 4:26 PM CORPORATE RECRUITER 1 mg documented in this encounter Active and Recently Administered Medications Times are shown in CORPORATE RECRUITER. Scheduled Medication Order 10/24/2025 10/25/2025 10/26/2025 LORazepam (ATIVAN) tablet 1 mg (COMPLETED) 1 mg, Oral, Once, 1 dose, On Sat10/26/25 at 1615 1626 (Given - Provid er: Tracey Stover RN) documented in this encounter Care Teams Rehab Assistant Relationship Specialty Start Date End Date Tanner Paige MD [address] [place] [phone] PCP - General FAMILY PRACTICE 07/01/24 Janell Celaya APNP [id number] [place] [address] NURSE PRACTITIONER 12/01/24 Tara Miranda ANP-JMAIR [address] [facility] [place] [address] [place] [address] Nurse Practitioner NURSE PRACTITIONER ADULT HEALTH 10/08/25 Roseanne Roper NP-C [address] [place] [address] Nurse Practitioner Family 10/25/25 documented as of this encounter
--- OUTSIDE RECORDS SUMMARY | 2025-10-26 15:35 | XMS_ITS | Encounter Summary ---
Author Organization [facility] Address [address] [place] [address] Care Team Providers Care Forestry Foreman Name Role Phone Tanner Paige MD Primary Care Provider Janell Celaya APNP Unavailable Tara Miranda ANP-BC Unavailable + [phone] oRseanne Roper EGG BUYER-C Unavailable [phone] Reason for Visit * Reason Comments Headache Encounter Details Date Type Department Care Team (Late st Contact Info) Description 10/26/2025 3:35 PM LOSS PREVENTION COORDINATOR - 10/26/2025 4:47 PM LOSS PREVENTION COORDINATOR Emergency [facility] [address] [facility] [facility] [place] [address] Nacho Breen MD [address] [place] [id number] Headache Discharge Disposition: Home or Self [...] Recorded Patient Health Questionnaire-2 Score 0 05/[facility]/2024 [facility] - Occupational Stress Questionnaire Answer Date [...] How often do you attend chur or muslim services? 1 to 4 times per year 08/29/2025 Do you belong to any clubs o r organizations such as congregation groups, unions, fraternal or athletic groups, or [...] and heating? Not hard at all 08/29/2025 [facility] - Occupational [...] any time in the past 12 m [facility], were you homeless or living in a nursing home (including now)? No 08/29/2025 B1300 Health Literacy Answer Date Recor ded How often do you need to hav e someone help you when you read instructions, pamphlets, or other written material from your doctor or pharmacy? Never 08/29/2025 [facility] Utilities Answer Date Recorded In the [...] Comments Blood Pressure 133/88 10/26/2025 4:30 PM LOSS PREVENTION COORDINATOR Pulse 79 10/26/2025 3:42 PM LOSS PREVENTION COORDINATOR Temperature 36.7 C (98 F) 10/26/2025 3:42 PM LOSS PREVENTION COORDINATOR Respiratory Rate 22 10/26/2025 3:42 PM LOSS PREVENTION COORDINATOR Oxygen Saturation 97% 10/26/2025 4:30 PM LOSS PREVENTION COORDINATOR Inhaled Oxygen Concentration - - Weight 72.1 kg (159 lb) 10/26/2025 3:42 PM LOSS PREVENTION COORDINATOR Height 165.1 cm (5' 5) 10/26/2025 3:42 PM LOSS PREVENTION COORDINATOR Body Mass Index 26.46 10/26/2025 3:42 PM LOSS PREVENTION COORDINATOR documented in this encounter Functional Status * [...] Status No Risk Indicated 10/26/2025 3:39 PM LOSS PREVENTION COORDINATOR Charlee Zeng RN Active * Hale Suicide Severity Rating Scale (Screener/Recent Self-Report) Question [...] Nacho Breen MD - 10/26/2025 4:14 PM LOSS PREVENTION COORDINATOR Follow-up with your primary doctor Please take Ativan twice a day as needed for anxiety. Hold Xanax. Follow-up with primary doctor for depression. If your depression get worse you need help. Required to come back to emergency room or see your primary physician PREVENTION COORDINATOR PREVENTION COORDINATOR * Attachments The following attachments cannot be sent through Care Everywhere. * Anxiety Discharge Instructions, Adult (Andorran) * Cognitive-Behavioral Therapy ([place]orran) * Generalized anxiety disorder ([place]ran) documented in this encounter Medications at Time [...] she declines any further mental help today. PREVENTION COORDINATOR * Nacho Breen MD - 10/26/2025 4:25 [...] nursing note reviewed. Exam conducted with a video journalist present. Constitutional: Appearance: Normal appearance. HENT: Head: [...] use: Not Currently Nacho Breen MD 10/26/25 [id number] PREVENTION COORDINATOR * Evy Zeng RN - 10/26/2025 3:44 [...] made aware of statements made to nursing. PREVENTION COORDINATOR * Evy Zeng RN - 10/26/2025 3:37 [...] states she is not suicidal or homicidal. PREVENTION COORDINATOR documented in this encounter Plan of Treatment Upcoming Encounters Date Type Department Care Team (Late st Contact Info) Description 11/01/2025 1:00 PM LOSS PREVENTION COORDINATOR Telephone [facility] abund[facility] [address] [place] [address] Roseanne Roper NP-C [address] [place] [address] 11/04/2025 12:30 PM LOSS PREVENTION COORDINATOR Office Visit [facility] [address] [place] [phone] Tara Miranda, ANP- [address] [place], [place] [address] 11/05/2025 6:00 AM LOSS PREVENTION COORDINATOR Appointment [place] [address] [place] [address] Roseanne Roper NP-C [address] [place] [address] documented as of this encounter Procedures Procedure Name Priority Date/Time Associated Diagnosis Comments ECG 12-LEAD STAT 10/26/2025 4:34 PM LOSS PREVENTION COORDINATOR documented in this encounter Results * ECG 12 lead (10/26/2025 4:34 PM LOSS PREVENTION COORDINATOR) ECG QT 417 [facility] ECG QTC 379 [facility] 10/26/2025 4:34 PM LOSS PREVENTION COORDINATOR Narrative [facility] - 10/27/2025 6:04 AM LOSS PREVENTION COORDINATOR [place] [address] [place] [address] Test Date: 2025-10-26 Pat Name: LIBRADO MEJIA Department: 3 Room: EXAM 404 Gender: Female Loom Winder Tender: : 2000 Requested By: NACHO BREEN Order Number: [id number] Fifi MD: Jose Marie Measurements Intervals Carver Rate: 49 P: 73 AR: 136 QRS: 72 QRSD: 86 T: 9 QT: 417 QTc: 379 Interpretive Statements SINUS BRADYCARDIA PREVENTION COORDINATOR Procedure Note Jose Marie MD - 10/27/2025 [facility] [address] [facility] [place] [address] Test Date: 2025-10-26 Pat Name: LIBRADO MEJIA Department: 3 Room: [place] [address] Gender: Female Loom Winder Tender: : 2000 Requested By: NACHO BREEN Order Number: [id number] Reading MD: Jose Marie Measurements Intervals Carver Rate: 49 P: 73 AR: 136 QRS: 72 QRSD: 86 T: 9 QT: 417 QTc: 379 Interpretive Statements SINUS BRADYCARDIA PREVENTION COORDINATOR us Nacho Breen MD ECG ORDERABLES Final Result [facility] documented in this encounter Visit Diagnoses Diagnosis Episode of anxiety- Primary Headache documented in this encounter Administered Medications Inactive Administered Medications - up to 3 most recent administrations Medication Order MAR Action Action Date Dose Rate Site LORazepam (ATIVAN) tablet 1 mg 1 mg, Oral, Once, 1 dose, On 10/26/25 at 1615 Given 10/26/2025 4:26 PM LOSS PREVENTION COORDINATOR 1 mg documented in this encounter Active and Recently Administered Medications Times are shown in LOSS PREVENTION COORDINATOR. Scheduled Medication Order 10/24/2025 10/25/2025 10/26/2025 LORazepam (ATIVAN) tablet 1 mg (COMPLETED) 1 mg, Oral, Once, 1 dose, On Sat10/26/25 at 1615 1626 (Given - Provid er: Tracey Stover RN) documented in this encounter Care Teams Forestry Foreman Relationship Specialty Start Date End Date Tanner Paige MD [address] [place] [address] PCP - General FAMILY PRACTICE 07/01/24 Janell Celaya APNP [address] [place] [address] NURSE PRACTITIONER 12/01/24 Tara Miranda ANP-JAMIR [address] [facility] [place] [address] [place] [address] Nurse Practitioner NURSE PRACTITIONER ADULT HEALTH 10/08/25 Roseanne Roper NP-C [address] [place] [address] Nurse Practitioner Family 10/25/25 documented as of this encounter
--- NOTE | ~2025-10-27 | XR_ITS ---
Examination: XR chest 1V portable Clinical History: CP, SOB Comparison: 02/16/2025 Technique: Portable AP Findings: Heart size normal. Lungs clear. No acute bony abnormality. Cholecystectomy clips. IMPRESSION: 1. No acute cardiopulmonary findings given portable technique. Reviewed, dictated and finalized at location R. 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
--- NOTE | ~2025-10-27 | CT_ITS ---
EXAMINATION: CTA chest PE protocol DATE: 10/27/2025 14:51 INDICATION: Cough, chest pain and shortness of breath TECHNIQUE: Computed tomography (CT) pulmonary angiogram of the chest was performed with 100 mL Omnipaque-350 intravenous contrast. Additional 3D reconstructions utilizing coronal maximum intensity projection (MIP) were performed. Automated exposure control and iterative reconstruction technique were employed. The dose-length product was 227.29 mGy-cm. COMPARISON: None FINDINGS: No pulmonary embolism. No pneumonia, pulmonary edema or other pulmonary infiltrates. No pleural effusion or pneumothorax. Heart size is normal. No pericardial effusion. Thoracic aorta is normal caliber with no dissection. No pathologically enlarged thoracic lymphadenopathy. Cholecystectomy clips the ga llbladder fossa. Bones are unremarkable. IMPRESSION: 1. No pulmonary embolism or other acute cardiopulmonary disease. Reviewed, dictated and finalized at location A. T COMMISSIONER
[2025-10-27 11:04] VITALS: BP 154/74; PULSE 79; RESP 18; TEMP 36.5; O2SAT 100
--- OUTSIDE RECORDS SUMMARY | 2025-10-27 11:23 | XMS_ITS ---
Author Organization Unknown Address [address] [place] [phone] Phone Care Team Providers Care Machine Printer Hose Name Role Phone JUAN BOLDEN Attending Unavailable [...] Jarad Root M.D. [place]: CHAUNCEY Report ID: [id number] Reading Location: [place] [address] Social History Type Status Start Date End Date Code Code Syst em Smoking History Never smoker (Never Smoked) [id number] SNOMED CT Sex Female Assessment You had [...] 6002 SNOMED-CT UNSPECIFIED ABDOMINAL PAIN active 215 57401 SNOMED-CT Allergies and Adverse Reactions Allergy Substance Reaction Severity Start Date Concern Status Co de Code System AMOXICILLIN Active 723 RxNorm TERBUTALINE Active 19107 RxNorm Plan of Treatment Stress Test Treadmill 01/21/2025 Farmworker Pullet Farm Consult 04/27/2025 Encounters Encounter Diagnosis Start Date [...]
--- OUTSIDE RECORDS SUMMARY | 2025-10-27 11:24 | XMS_ITS | Clinical Summary ---
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 Active ALPRAZolam (XANAX) 0.25 MG tablet Take 1 tablet (0.25 mg total) by mouth 3 (three) times daily as needed for Anxiety. Active clindamycin (CLEOCIN) 300 MG capsule Take 1 capsule (300 mg total) by mouth 3 (three) times daily for 10 days. 30 capsule 10/20/20 25 026 Active sertraline (ZOLOFT) 50 MG tablet 1 tablet (50 mg total) daily. 09/09/20 25 Active escitalopram (LEXAPRO) 5 MG tablet Take 1 tablet (5 mg total) by mouth daily. 10/19/20 25 Active LORazepam (ATIVAN) 0.5 MG tabletIndications: Episode of anxiety,Headache Take 1 tablet (0.5 mg total) by mouth 3 (three) times daily for 3 days. 9 tablet 10/26/20 026 Active ondansetron (ZOFRAN-ODT) 4 MG disintegrating tablet Take 1 tablet (4 mg total) by mouth every 8 (eight) hours as needed for Nausea. 20 tablet 01/25/20 025 Discontinued coenzyme Q-10 (CO Q-10) 100 MG capsule Take 3 capsules (300 mg total) by mouth daily. 05/23/20 025 Discontinued Docusate Sodium 100 MG Tab Take 1 tablet by mouth daily as needed (constipati on). 01/07/20 Discontinued insulin NPH (HUMULIN N) 100 UNIT/ML injection Inject 7 Units into the skin nightly at bedtime. 025 Discontinued calcium carbonate (TUMS) 500 MG chewable tablet Chew 1 tablet (500 mg total) by mouth daily as needed for Heartburn. Discontinued HYDROcodone-acetam inophen (NORCO) 5-325 MG tablet Take 1 tablet by mouth every 6 (six) hours as needed. 09/07/20 025 Discontinued hydrALAZINE (APRESOLINE) 25 MG tablet Take 1 tablet (25 mg total) by mouth every 6 (six) hours as needed (Anxiety). 120 tablet 09/20/20 025 Discontinued NIFEdipine XL (PROCARDIA-XL) 30 MG 24 hr tablet Take 2 tablets (60 mg total) by mouth daily. 025 Discontinued cephALEXin (KEFLEX) 500 MG capsule Take 1 capsule (500 mg total) by mouth 3 (three) times daily for 7 days. 21 capsule 10/16/20 025 Active Problems Problem Noted Date Diagnosed Date 05/13/2024 Headache 05/13/2024 Encounters Date Type Department Care Team Description 10/26/2025 3:35 PM HISTORIAN RESEARCH ASSISTANT - 10/26/2025 4:47 PM [facility] [address] [place] [address] Nacho Recinos MD Headache Discharge Disposition: Home or Self Care (Routine Discharge) 10/26/2025 Travel 10/25/2025 Telephone [facility] [address] [facility] [address] [place] [address] Chito Hansen DO Appointment Request (BILATERAL rib pain) 10/20/2025 12:30 AM HISTORIAN RESEARCH ASSISTANT - 10/20/2025 3:00 AM [facility] [address] [place] [address] Fantasma Pedroza DO Wound Discharge Disposition: Home or Self Care (Routine Discharge) 10/20/2025 Travel 10/16/2025 9:52 AM HISTORIAN RESEARCH ASSISTANT - 10/16/2025 12:03 PM [facility] [place] [facility] [place] [address] Nacho Recinos MD Chest Pain Discharge Disposition: Home or Self Care (Routine Discharge) 10/16/2025 Travel 10/15/2025 Telephone [facility] [address] [place] [address] Carlos Rodarte, MOTOR BOSS-C Orders 10/15/2025 Telephone [facility] [address] [place] [address] Tara Miranda ANP-BC Heart Problem 10/14/2025 4:30 PM HISTORIAN RESEARCH ASSISTANT - 10/14/2025 11:59 PM [facility] Hospital Encounter [facility] [address] [place] [address] Carlos Rodarte, MOTOR BOSS-C Discharge Disposition: Home or Self Care (Routine Discharge) 10/14/2025 Travel 10/14/2025 Telephone [facility] [place] [address] Tara Miranda ANP-BC Abstract Labs (Abstract labs and meds) 10/09/2025 4:05 PM HISTORIAN RESEARCH ASSISTANT - 10/09/2025 5:30 PM [facility] [place] [address] Naldo Cadet DO Discharge Disposition: Home or Self Care (Routine Discharge) 10/09/2025 Travel 10/08/2025 [facility] [address] [place] [address] Scanned, Doc Pccl 10/08/2025 [facility] [place] [address] Tara Miranda, ANP- Referral Request 10/07/2025 3:20 PM HISTORIAN RESEARCH ASSISTANT - 10/07/2025 11:59 PM HISTORIAN RESEARCH ASSISTANT Hospital Encounter [facility] [address] [place] [address] Carlos Rodarte, MOTOR BOSS-C Discharge Disposition: Home or Self Care (Routine Discharge) 10/07/2025 [facility] [address] [place] [address] Scanned, Doc Pccl 10/07/2025 Travel 10/05/2025 6:18 PM HISTORIAN RESEARCH ASSISTANT - 10/05/2025 7:26 PM [facility] [address] [place] [address] [place] [address] Kaitlin Colon MD Shoulder Pain Discharge Disposition: Home or Self Care (Routine Discharge) 10/05/2025 Travel 10/01/2025 7:38 PM HISTORIAN RESEARCH ASSISTANT - 10/01/2025 7:50 PM [facility] [place] [address] Earache; Dizziness Discharge Disposition: Home or Self Care (Routine Discharge) 10/01/2025 Travel 09/21/2025 9:29 AM HISTORIAN RESEARCH ASSISTANT - 09/21/2025 12:07 PM [facility] [place] [address] Naldo Cadet DO Chest Pain Discharge Disposition: Home or Self Care (Routine Discharge) 09/21/2025 Travel 09/20/2025 12:17 AM HISTORIAN RESEARCH ASSISTANT - 09/20/2025 4:07 AM [facility] [address] Tien Mehta DO Hypertension Discharge Disposition: Home or Self Care (Routine Discharge) 09/20/2025 Travel 09/12/2025 12:49 PM HISTORIAN RESEARCH ASSISTANT - 09/12/2025 3:12 PM HISTORIAN RESEARCH ASSISTANT [facility] [address] [place] [address] [place] [address] Emy Irene MD Chest Pain Discharge Disposition: Home or Self Care (Routine Discharge) 09/12/2025 9:10 AM HISTORIAN RESEARCH ASSISTANT - 09/12/2025 11:05 AM [facility] [address] [place] [address] [place] [address] Emy Irene MD Headache; Vaginal Bleeding (Post-) Discharge Disposition: Home or Self Care (Routine Discharge) 09/12/2025 Travel 08/29/2025 7:07 PM HISTORIAN RESEARCH ASSISTANT - 08/29/2025 9:39 PM HISTORIAN RESEARCH ASSISTANT Hospital Encounter [facility] [address] [place] [address] [place] [address] Lester Valle MD (Headache) Discharge Disposition: Home or Self Care (Routine Discharge) 08/29/2025 Travel 08/18/2025 7:48 PM CDT - 08/18/2025 9:22 PM CDT [facility] [address] [place] [address] [place] [address] Nacho Recinos MD Chest Pain Discharge Disposition: Home or Self Care (Routine Discharge) 08/18/2025 Travel 08/15/2025 10:59 AM CDT - 08/15/2025 1:56 PM CDT Hospital Encounter [facility] [address] [place] [address] [place] [address] Yeni Pinto MD Discharge Disposition: Home or Self Care (Routine Discharge) 08/14/2025 11:00 AM CDT - 08/14/2025 11:59 AM CDT [facility] [address] [place] [address] [place] [address] Naldo Cadet DO Sore Throat Discharge Disposition: Home or Self Care (Routine Discharge) 08/14/2025 Travel 07/28/2025 Telephone [facility] [address] [place] [address] [place] [address] Марина Grace MD Problem (Pt called stating her pulse is around 116 and her pulse ox is at 93%. She is having a little bit of SOB that she took 2 puffs of Symbicort(inhaler) and it has helped a little. RN advised she call her regular OB and try to see them, if not she could be seen here. ) from Last 3 Months Family History Medical [...] Recorded Patient Health Questionnaire-2 Score 0 05/13/2024 [facility] Occupat ional Health - Occupational Stress [...] How often do you attend chur or shinto services? 1 to 4 times per year 08/29/2025 Do you belong to any clubs o r organizations such as voodoo groups, unions, fraternal or athletic groups, or [...] and heating? Not hard at all 08/29/2025 [facility] Occupat ional Health - Occupational Stress [...] any time in the past [facility], were you homeless or living in a penitentiary (including now)? No 08/29/2025 B1300 Health Literacy Answer Date Recor ded How often do you need to hav e someone help you when you read instructions, pamphlets, or other written material from your doctor or pharmacy? Never 08/29/[address] [facility] Utilities Answer Date Recorded In the [...] Comments Blood Pressure 133/88 10/26/2025 4:30 PM HISTORIAN RESEARCH ASSISTANT Pulse 79 10/26/2025 3:42 PM HISTORIAN RESEARCH ASSISTANT Temperature 36.7 C (98 F) 10/26/2025 3:42 PM HISTORIAN RESEARCH ASSISTANT Respiratory Rate 22 10/26/2025 3:42 PM HISTORIAN RESEARCH ASSISTANT Oxygen Saturation 97% 10/26/2025 4:30 PM HISTORIAN RESEARCH ASSISTANT Inhaled Oxygen Concentration - - Weight 72.1 kg (159 lb) 10/26/2025 3:42 PM HISTORIAN RESEARCH ASSISTANT Height 165.1 cm (5' 5) 10/26/2025 3:42 PM HISTORIAN RESEARCH ASSISTANT Body Mass Index 26.46 10/26/2025 3:42 PM HISTORIAN RESEARCH ASSISTANT Plan of Treatment Upcoming Encounters Date Type Department Care Team (Late st Contact Info) Description 11/01/2025 1:00 PM HISTORIAN RESEARCH ASSISTANT Telephone [facility] [address] [place] [address] Carlos Rodarte MOTOR BOSS-C [address] [place] [address] 11/04/2025 12:30 PM HISTORIAN RESEARCH ASSISTANT Office Visit [facility] [address] [place] [address] Tara Miranda, ANP- [address] [place], [place] [address] 11/05/2025 6:00 AM HISTORIAN RESEARCH ASSISTANT [facility] [address] [place] [address] Carlos Rodarte, MOTOR BOSS-C [address] [place] [address] Health Maintenance Due Date Last Done Comments [...] Comments ECG 12-LEAD STAT 10/26/2025 4:34 PM HISTORIAN RESEARCH ASSISTANT CT ABD+PEL W CON STAT 10/20/2025 1:42 AM HISTORIAN RESEARCH ASSISTANT XR CHEST PORTABLE STAT 10/20/2025 1:4 2 AM HISTORIAN RESEARCH ASSISTANT AMYLASE STAT 10/20/2025 1:20 AM HISTORIAN RESEARCH ASSISTANT LIPASE STAT 10/20/2025 1:20 AM HISTORIAN RESEARCH ASSISTANT COMPREHENSIVE METABOLIC PANEL STAT 10/20/2025 1:20 AM HISTORIAN RESEARCH ASSISTANT HC CBC AUTO W/AUTO DIFF STAT 10/20/2025 1:20 AM HISTORIAN RESEARCH ASSISTANT TEST URINE STAT 10/20/2025 1:15 AM HISTORIAN RESEARCH ASSISTANT URINALYSIS STAT 10/20/2025 1:15 AM HISTORIAN RESEARCH ASSISTANT RESPIRATORY PCR PNL LIMITED STAT 10/20/2025 1:08 AM HISTORIAN RESEARCH ASSISTANT STREP A, DNA STAT 10/20/2025 1:08 AM HISTORIAN RESEARCH ASSISTANT CTA CHEST PE PROTOCOL STAT 10/16/2025 11:18 AM HISTORIAN RESEARCH ASSISTANT URINE BACTERIA CULTURE STAT 10/16/2025 10:40 AM HISTORIAN RESEARCH ASSISTANT URINALYSIS STAT 10/16/2025 10:40 AM HISTORIAN RESEARCH ASSISTANT ECG 12-LEAD Routine 10/16/2025 10:07 AM HISTORIAN RESEARCH ASSISTANT MAGNESIUM STAT 10/16/2025 10:07 AM HISTORIAN RESEARCH ASSISTANT D-DIMER, QUANTITATIVE STAT 10/16/2025 10:07 AM HISTORIAN RESEARCH ASSISTANT TROPONIN, QUANT STAT 10/16/2025 10:07 AM HISTORIAN RESEARCH ASSISTANT HC CBC AUTO W/AUTO DIFF STAT 10/16/2025 10:07 AM HISTORIAN RESEARCH ASSISTANT ECG 12-LEAD Routine 10/14/2025 4:44 PM HISTORIAN RESEARCH ASSISTANT Heart palpitations TROPONIN, QUANT STAT 10/09/2025 4:30 PM HISTORIAN RESEARCH ASSISTANT COMPREHENSIVE METABOLIC PANEL STAT 10/09/2025 4:30 PM HISTORIAN RESEARCH ASSISTANT HC CBC AUTO W/AUTO DIFF STAT 10/09/2025 4:30 PM HISTORIAN RESEARCH ASSISTANT ECG 12-LEAD Routine 10/09/2025 4:03 PM HISTORIAN RESEARCH ASSISTANT LIPID PROFILE (ABSTRACTED) Routine 10/08/2025 BASIC METABOLIC PANEL (ABSTRACTED) Routine 10/08/2025 XR RIBS ADAM Routine 10/07/2025 3:43 PM HISTORIAN RESEARCH ASSISTANT Rib pain XR CHEST PA+LAT Routine 10/07/2025 3:43 PM HISTORIAN RESEARCH ASSISTANT Rib pain URINALYSIS STAT 10/05/2025 7:04 PM HISTORIAN RESEARCH ASSISTANT MAGNESIUM STAT 10/05/2025 6:42 PM HISTORIAN RESEARCH ASSISTANT HEPATIC FUNCTION PANEL STAT 10/05/2025 6:42 PM HISTORIAN RESEARCH ASSISTANT BASIC METABOLIC PANEL STAT 10/05/2025 6:42 PM HISTORIAN RESEARCH ASSISTANT HC CBC AUTO W/AUTO DIFF STAT 10/05/2025 6:42 PM HISTORIAN RESEARCH ASSISTANT ECG 12-LEAD Routine 10/05/2025 6:22 PM HISTORIAN RESEARCH ASSISTANT URINALYSIS STAT 10/01/2025 8:27 PM HISTORIAN RESEARCH ASSISTANT CTA CHEST PE PROTOCOL STAT 09/21/2025 11:20 AM HISTORIAN RESEARCH ASSISTANT D-DIMER, QUANTITATIVE STAT 09/21/2025 9:59 AM HISTORIAN RESEARCH ASSISTANT TROPONIN, QUANT STAT 09/21/2025 9:59 AM HISTORIAN RESEARCH ASSISTANT COMPREHENSIVE METABOLIC PANEL STAT 09/21/2025 9:59 AM HISTORIAN RESEARCH ASSISTANT HC CBC AUTO W/AUTO DIFF STAT 09/21/2025 9:59 AM HISTORIAN RESEARCH ASSISTANT ECG 12-LEAD Routine 09/21/2025 9:36 AM HISTORIAN RESEARCH ASSISTANT COMPREHENSIVE METABOLIC PANEL STAT 09/20/2025 12:47 AM HISTORIAN RESEARCH ASSISTANT HC CBC AUTO W/AUTO DIFF STAT 09/20/2025 12:47 AM HISTORIAN RESEARCH ASSISTANT CTA CHEST PE PROTOCOL STAT 09/12/2025 2:00 PM HISTORIAN RESEARCH ASSISTANT PRO-BRAIN NATRIURETIC PEPTIDE Routine 09/12/2025 1:10 PM HISTORIAN RESEARCH ASSISTANT BASIC METABOLIC PANEL STAT 09/12/2025 1:10 PM HISTORIAN RESEARCH ASSISTANT HC CBC W/O DIFF STAT 09/12/2025 1:10 PM HISTORIAN RESEARCH ASSISTANT TROPONIN, QUANT STAT 09/12/2025 1:10 PM HISTORIAN RESEARCH ASSISTANT D-DIMER, QUANTITATIVE STAT 09/12/2025 1:10 PM HISTORIAN RESEARCH ASSISTANT ECG 12-LEAD STAT 09/12/2025 12:50 PM HISTORIAN RESEARCH ASSISTANT ECG 12-LEAD STAT 09/12/2025 10:28 AM HISTORIAN RESEARCH ASSISTANT URINALYSIS STAT 09/12/2025 9:56 AM HISTORIAN RESEARCH ASSISTANT PROTEIN CREAT RATIO URINE STAT 09/12/2025 9:56 AM HISTORIAN RESEARCH ASSISTANT COMPREHENSIVE METABOLIC PANEL STAT 09/12/2025 9:37 AM HISTORIAN RESEARCH ASSISTANT HC CBC AUTO W/AUTO DIFF STAT 09/12/2025 9:37 AM HISTORIAN RESEARCH ASSISTANT HC COMPREHENSIVE METABOL PANEL STAT 08/29/2025 8:34 PM HISTORIAN RESEARCH ASSISTANT Headache HC CBC AUTO W/AUTO DIFF STAT 08/29/2025 8:34 PM HISTORIAN RESEARCH ASSISTANT Headache ECG 12-LEAD STAT 08/29/2025 8:26 PM HISTORIAN RESEARCH ASSISTANT Headache CORONAVIRUS (COVID-19) ANTIGEN STAT 08/29/2025 8:16 PM HISTORIAN RESEARCH ASSISTANT Headache HC RSV AG QL STAT 08/29/2025 8:16 PM HISTORIAN RESEARCH ASSISTANT Headache INFLUENZA A & B STAT 08/29/2025 8:16 PM HISTORIAN RESEARCH ASSISTANT Headache POCT GLUCOSE - DOCKED DEVICE Routine 08/29/2025 8:02 PM HISTORIAN RESEARCH ASSISTANT HC URINALYSIS AUTO W/MICRO STAT 08/29/2025 7:11 PM HISTORIAN RESEARCH ASSISTANT Headache NONSTRESS TEST Routine 08/29/2025 7:09 PM HISTORIAN RESEARCH ASSISTANT Headache XR CHEST PORTABLE STAT 08/18/2025 8:1 [...] (COVID-19) ANTIGEN STAT 08/14/2025 11:06 AM CDT from Last 3 Months Results * ECG 12 lead (10/26/2025 4:34 PM HISTORIAN RESEARCH ASSISTANT) Only the most recent of10 resultswithin the time period is included. ECG QT 417 [facility] ECG QTC 379 [facility] 10/26/2025 4:34 PM HISTORIAN RESEARCH ASSISTANT Narrative [facility] - 10/27/2025 6:04 AM HISTORIAN RESEARCH ASSISTANT [address] 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2000 Requested By: NACHO [employer] Order Number: [id number] Reading : Jose Marie Measurements Intervals [place] Rate: 49 P: 73 FL: 136 QRS: 72 QRSD: 86 T: 9 QT: 417 QTc: 379 Interpretive Statements SINUS BRADYCARDIA ORIAN RESEARCH ASSISTANT us Nacho Recinos MD ECG ORDERABLES Final Result [facility] * CT ABD+PEL W IV CON ONLY (10/20/2025 1:42 AM HISTORIAN RESEARCH ASSISTANT) Anatomical Region Laterality Modality Abdomen Computed Tomogra phy 10/20/2025 2:14 AM HISTORIAN RESEARCH ASSISTANT Impressions 10/20/2025 2:14 AM HISTORIAN RESEARCH ASSISTANT IMPRESSION: 1. Trace periumbilical subcutaneous inflammatory change. No evidence of abscess formation. 2. Urinary bladder wall is somewhat diffusely thickened for degree of distention, with trace urothelial enhancement present. If there is clinical concern for acute cystitis, recommend correlation with urinalysis. Referred By: Interpreted By: Jose Paul MD, 10/20/2025 2:14 AM Narrative 10/20/2025 2:14 AM HISTORIAN RESEARCH ASSISTANT [address] [place] [address] EXAM: CT ABD+PEL W CON INDICATION: Periumbilical pain COMPARISON: Abdomen/pelvis CT, 11 Apr 2023 TECHNIQUE: CT images of the abdomen/pelvis were obtained following the administration of IV contrast. Radiation dose reduction technique utilized. FINDINGS: Limited visualization of the lower thorax reveals no acute abnormality. Normal size liver. No suspicious hepatic lesion. Cholecystectomy. Hepatic veins, main portal vein, splenic vein, SMV, and SMA enhance. No retroperitoneal lymphadenopathy. No evidence of bowel obstruction or acute inflammation. Minimal colonic stool burden. Normal appearing appendix. Small bowel is unremarkable. Stomach within normal limits. No free gas in the abdomen or pelvis. No mesenteric lymphadenopathy. Unremarkable spleen. Pancreas and adrenal glands within normal limits. Kidneys enhance symmetrically. No hydronephrosis or hydroureter. Distal aspects of the ureters are obscured. Urinary bladder wall is somewhat diffusely thickened for degree of distention, with trace urothelial enhancement present. Uterus within physiologic limits. Physiologic follicles present in the ovaries. Trace free fluid in the pelvis, likely physiologic. Incidental note of benign pelvic phleboliths. No pelvic lymphadenopathy. Mild chronic degenerative changes of the sacroiliac joints. Diastasis recti. Trace periumbilical subcutaneous fat stranding. No organized collection identified. No radiopaque foreign body or soft tissue emphysema. Procedure Note Jose Paul MD - 10/20/2025 [facility] [address] [facility] [place] [address] EXAM: CT ABD+PEL W CON INDICATION: Periumbilical pain COMPARISON: Abdomen/pelvis CT, 11 Apr 2023 TECHNIQUE: CT images of the abdomen/pelvis were obtained following theadministration of IV contrast. Radiation dose reduction techniqueutilized. FINDINGS: Limited visualization of the lower thorax reveals no acute abnormality. Normal size liver. No suspicious hepatic lesion. Cholecystectomy. Hepatic veins, main portal vein, splenic vein, SMV, and SMA enhance. Noretroperitoneal lymphadenopathy. No evidence of bowel obstruction or acute inflammation. Minimal colonicstool burden. Normal appearing appendix. Small bowel is unremarkable.Stomach within normal limits. No free gas in the abdomen or pelvis. Nomesenteric lymphadenopathy. Unremarkable spleen. Pancreas and adrenal glands within normal limits. Kidneys enhance symmetrically. No hydronephrosis or hydroureter. Distalaspects of the ureters are obscured. Urinary bladder wall is somewhat diffusely thickened for degree ofdistention, with trace urothelial enhancement present. Uterus within physiologic limits. Physiologic follicles present in theovaries. Trace free fluid in the pelvis, likely physiologic. Incidentalnote of benign pelvic phleboliths. No pelvic lymphadenopathy. Mild chronic degenerative changes of the sacroiliac joints. Diastasis recti. Trace periumbilical subcutaneous fat stranding. Noorganized collection identified. No radiopaque foreign body or soft tissueemphysema. IMPRESSION: 1. Trace periumbilical subcutaneous inflammatory change. No evidence ofabscess formation. 2. Urinary bladder wall is somewhat diffusely thickened for degree ofdistention, with trace urothelial enhancement present. If there isclinical concern for acute cystitis, recommend correlation withurinalysis. Referred By: Interpreted By: Jose Paul MD, 10/20/2025 2:14 AM us Fantasma Pedroza DO CT Final Result * XR CHEST PORTABLE (10/20/2025 1:42 AM HISTORIAN RESEARCH ASSISTANT) Only the most recent of2 resultswithin the time period is included. Anatomical Region Laterality Modality Chest Radiographic Jazmin ging 10/20/2025 2:16 AM HISTORIAN RESEARCH ASSISTANT Impressions 10/20/2025 2:16 AM HISTORIAN RESEARCH ASSISTANT IMPRESSION: No acute cardiopulmonary process. Referred By: Interpreted By: Jose Paul MD, 10/20/2025 2:16 AM Narrative 10/20/2025 2:16 AM HISTORIAN RESEARCH ASSISTANT [address] [place] [address] EXAM: XR CHEST PORTABLE INDICATION: Cough chills COMPARISON: Chest radiograph, 07 Oct 2025 TECHNIQUE: Single frontal radiographic image of the chest FINDINGS: No pneumothorax, pleural effusion, or focal airspace consolidation. Electronic device projects over the left upper lung field. Pulmonary vasculature and cardiomediastinal silhouette within normal limits. No acute osseous abnormality. Procedure Note Jose Paul MD - 10/20/[address] [place] [address] EXAM: XR CHEST PORTABLE INDICATION: Cough chills COMPARISON: Chest radiograph, 07 Oct 2025 TECHNIQUE: Single frontal radiographic image of the chest FINDINGS: No pneumothorax, pleural effusion, or focal airspace consolidation.Electronic device projects over the left upper lung field. Pulmonaryvasculature and cardiomediastinal silhouette within normal limits. Noacute osseous abnormality. IMPRESSION: No acute cardiopulmonary process. Referred By: Interpreted By: Jose Paul MD, 10/20/2025 2:16 AM us Fantasma Pedroza DO GENERAL IMAGING Final Result * LIPASE (10/20/2025 1:20 AM HISTORIAN RESEARCH ASSISTANT) LIPASE 39 16 - 77 UNITS/L 10/20/2025 1:43 AM [facility] BLOOD VENOUS BLOOD SPECIMEN / Unknown 10/20/2025 1:20 AM HISTORIAN RESEARCH ASSISTANT Fantasma Pedroza DO LABORATORY Final Result [facility] [address] [place] [address], * (ABNORMAL) COMPREHENSIVE METABOLIC PANEL (10/20/2025 1:20 AM HISTORIAN RESEARCH ASSISTANT) Only the most recent of5 resultswithin the time period is included. SODIUM S/P/B 143 136 - 145 MMOL/L 10/20/2025 1:43 AM [facility] POTASSIUM S/P/B 3.4(L) 3.5 - 5.1 MMOL/L 10/20/2025 1:43 AM [facility] CHLORIDE S/P/B 105 98 - 107 MMOL/L 10/20/2025 1:43 AM [facility] CO2 30.7 21.0 - 32.0 MMOL/L 10/20/2025 1:43 AM [facility] [facility] GLUCOSE 100(H) 70 - 99 MG/DL 10/20/2025 1:43 AM [facility] Comment: FASTING GLUCOSE 100 TO 125 MG/DL IS CONSISTENT WITH IMPAIRED FASTING GLUCOSE. FASTING GLUCOSE >125 MG/DL IS CONSISTENT WITH DIABETES. RANDOM GLUCOSE >200 MG/DL WITH HYPERGLYCEMIC SYMPTOMS IS CONSISTENT WITH DIABETES. PER ADA GUIDELINES BUN 15 6 - 24 MG/DL 10/20/2025 1:43 AM [facility] CREATININE S/P/B 0.71 0.55 - 1.02 MG/DL 10/20/2025 1:43 AM [facility] CALCIUM S/P/B 9.1 8.4 - 10.5 MG/DL 10/20/2025 1:43 AM [facility] BILIRUBIN TOTAL S/P/B 0.2 0.2 - 1.0 MG/DL 10/20/2025 1:43 AM [facility] Comment: THIS ASSAY IS NOT RECOMMENDED FOR PATIENTS UNDERGOING TREATMENT WITH ELTROMBOPAG DUE TO THE POTENTIAL FOR FALSELY ELEVATED RESULTS. ALKALINE PHOSPHATASE S/P/B 139(H) 37 - 98 U/L 10/20/2025 1:43 AM [facility] AST 12(L) 15 - 37 U/L 10/20/2025 1:43 AM [facility] ALT 20 14 - 59 U/L 10/20/2025 1:43 AM [facility] TOTAL PROTEIN S/P/B 7.5 6.4 - 8.2 G/DL 10/20/2025 1:43 AM [facility] ALBUMIN S/P/B 3.6 3.4 - 5.0 G/DL 10/20/2025 1:43 AM [facility] ANION GAP 7.3 5.0 - 15.0 MMOL/L 10/20/2025 1:43 AM [facility] OSMOLALITY (CALC) 297 MOSM/KG 025 1:43 AM [facility] Comment:REFERENCE RANGE NOT ESTABLISHED GFR ESTIMATE >90 >89 ML/MIN/1. 73 M2 10/20/2025 1:43 AM [facility] GFR NOTES GFR REFERENCE S: 10/20/2025 1:43 AM [facility] Comment: THE ESTIMATED GFR [...] m2 BLOOD VENOUS BLOOD SPECIMEN / Unknown 10/20/2025 1:20 AM [facility] us Fantasma Pedroza DO LABORATORY Final Result [facility] [address] [place] [address], * (ABNORMAL) CBC W/DIFF AUTOMATED (10/20/2025 1:20 AM HISTORIAN RESEARCH ASSISTANT) Only the most recent of7 resultswithin the time period is included. WBC 9.30 4.00 - 10.80 x10'3/uL 10/20/2025 1:26 AM [facility] RBC 4.90 4.10 - 5.40 x10'6/uL 10/20/2025 1:26 AM [facility] HGB 12.1 12.0 - 16.0 G/DL 10/20/2025 1:26 AM [facility] HCT 38.5 36.0 - 47.0 % 10/20/2025 1:26 AM [facility] MCV 78.6 78.0 - 100.0 FL 10/20/2025 1:26 AM [facility] MCH 24.7(L) 27.0 - 31.0 PG 10/20/2025 1:26 AM [facility] MCHC 31.4(L) 33.0 - 36.0 G/DL 10/20/2025 1:26 AM [facility] RDW 13.9 11.5 - 14.5 % 10/20/2025 1:26 AM [facility] PLT 251 150 - 350 x10'3/uL 10/20/2025 1:26 AM [facility] MPV 9.4 7.4 - 10.4 FL 10/20/2025 1:26 AM [facility] CBC COMMENT NORMAL REFERENCE RANGE NOT ESTABLISHED FOR THE PROPORTIONAL LEUKOCYTE DIFFERENTIAL. 10/20/2025 1:26 AM [facility] NEUTROPHILS % 54.8 % 10/20/2025 1:26 AM [facility] LYMPHOCYTES % 33.5 % 10/20/2025 1:26 AM [facility] MONOCYTES % 8.5 % 10/20/2025 1:26 AM HISTORIAN RESEARCH ASSISTANT [facility] EOSINOPHILS % 2.7 % 10/20/2025 1:26 AM HISTORIAN RESEARCH ASSISTANT [facility] BASOPHILS % 0.3 % 10/20/2025 1:26 AM [facility] IMMATURE GRANS % 0.2 % 10/20/20 1:26 AM HISTORIAN RESEARCH ASSISTANT [facility] NRBC % 0.0 % 10/20/2025 1:26 AM HISTORIAN RESEARCH ASSISTANT [facility] ABS. NEUTROPHILS 5.09 1.60 - 8.30 x10'3/uL 10/20/2025 1:26 AM HISTORIAN RESEARCH ASSISTANT [facility] ABS. LYMPHOCYTES 3.12 0.80 - 4.70 x10'3/uL 10/20/2025 1:26 AM [facility] ABS. MONOCYTES 0.79 0.00 - 1.50 x10'3/uL 10/20/2025 1:26 AM HISTORIAN RESEARCH ASSISTANT [facility] ABS. EOSINOPHILS 0.25 0.00 - 0.40 x10'3/uL 10/20/2025 1:26 AM [facility] ABS. BASOPHILS 0.03 0.00 - 0.20 x10'3/uL 10/20/2025 1:26 AM [facility] ABS. IMMATURE GRANULOCYTES 0.02 0.00 - 0.03 x10'3/uL 10/20/2025 1:26 AM HISTORIAN RESEARCH ASSISTANT [facility] ABS. NUCLEATED RBC'S 0.00 0.00 - 0.01 x10'3/uL 10/20/2025 1:26 AM [facility] BLOOD VENOUS BLOOD SPECIMEN / Unknown 10/20/2025 1:20 AM HISTORIAN RESEARCH ASSISTANT Fantasma Pedroza DO LABORATORY Final Result [facility] [address] [place] [address], * AMYLASE (10/20/2025 1:20 AM HISTORIAN RESEARCH ASSISTANT) AMYLASE S/P/B 42 25 - 115 UNITS/L 10/20/2025 1:43 AM HISTORIAN RESEARCH ASSISTANT [facility] BLOOD VENOUS BLOOD SPECIMEN / Unknown 10/20/2025 1:20 AM HISTORIAN RESEARCH ASSISTANT us Fantasma Pedroza DO LABORATORY Final Result [facility] [address] [place] [address], * (ABNORMAL) URINALYSIS (10/20/2025 1:15 AM HISTORIAN RESEARCH ASSISTANT) Only the most recent of5 resultswithin the time period is included. COLOR (U) YELLOW 10/20/2025 1:37 AM HISTORIAN RESEARCH ASSISTANT [facility] TRANSPARENCY CLEAR 10/20/2025 1:37 AM [facility] SPECIFIC GRAVITY (U) 1.025 1.000 - 1.025 10/20/2025 1:37 AM [facility] U PH 6.0 5.0 - 8.0 10/20/2025 1:37 AM [facility] LEUKOCYTES (U) NEGATIVE NEGATIVE 10/20/2025 1:37 AM [facility] NITRITES NEGATIVE NEGATIVE 10/20/2025 1:37 AM [facility] PROTEIN RANDOM (U) NEGATIVE NEGATIVE 10/20/2025 1:37 AM [facility] GLUCOSE (U) NEGATIVE NEGATIVE 10/20/2025 1:37 AM [facility] KETONES MG/DL (U) TRACE(A) NEGATIVE 10/20/2025 1:37 AM [facility] UROBILINOGEN 0.2 <1.0 EU/DL 10/20/2025 1:37 AM [facility] BILIRUBIN (U) NEGATIVE NEGATIVE 10/20/2025 1:37 AM [facility] BLOOD (U) NEGATIVE NEGATIVE 10/20/2025 1:37 AM [facility] WBC/HPF 0-5 0 - 5 /HPF 10/20/2025 1:37 AM HISTORIAN RESEARCH ASSISTANT [facility] EPI/LPF MODERATE /LPF 10/20/2025 1:37 AM HISTORIAN RESEARCH ASSISTANT [facility] BACTERIA (U) 2+ /HPF 10/20/2025 1:37 AM HISTORIAN RESEARCH ASSISTANT [facility] MUCUS PRESENT 10/20/2025 1:37 AM HISTORIAN RESEARCH ASSISTANT [facility] URINE URINE SPECIMEN OBTAINED BY CLEAN CATCH PROCEDURE / Unknown 10/20/2025 1:15 AM HISTORIAN RESEARCH ASSISTANT us Fantasma Pedroza DO URINE ORDERABLES Final Resul t Performing Organization Address [facility] Co de Phone Number [facility] [address] [place] [phone], [place] [phone] * TEST URINE (10/20/2025 1:15 AM HISTORIAN RESEARCH ASSISTANT) URINE HCG TEST NEGATIVE 10/20/2025 1:35 AM HISTORIAN RESEARCH ASSISTANT [facility] SPECIFIC GRAVITY 1.025 10/20/2025 1:35 AM HISTORIAN RESEARCH ASSISTANT [facility] URINE URINE SPECIMEN FROM URETHRA / Unknown 10/20/2025 1:15 AM HISTORIAN RESEARCH ASSISTANT us Fantasma Pedroza DO URINE ORDERABLES Final Resul t Performing Organization Address [facility] Co de Phone Number [facility] [address] [place] [address], [place] [phone] * STREP A, DNA (10/20/2025 1:08 AM HISTORIAN RESEARCH ASSISTANT) SPECIMEN SOURCE THROAT 10/20/2025 1:11 AM HISTORIAN RESEARCH ASSISTANT [facility] STREP A MOLECULAR NOT DETECTED NOT DETECTED 10/20/2025 1:52 AM HISTORIAN RESEARCH ASSISTANT [facility] SWAB STRUCTURE OF ANTERIOR REGION OF NECK / Unknown 10/20/2025 1:08 AM HISTORIAN RESEARCH ASSISTANT us Fantasma Pedroza DO MICROBIOLOGY - GENERAL ORDER ARLENE Final Result Performing Organization Address City/[facility]/ZIP Co de Phone Number [facility] [address] [place] [phone], * RESPIRATORY PCR PNL LIMITED (10/20/2025 1:08 AM HISTORIAN RESEARCH ASSISTANT) SPEC DESCRIPTION NASOPHARYNGEAL SWAB 10/20/2025 1:11 AM HISTORIAN RESEARCH ASSISTANT [facility] CORONAVIRUS SARS COV 2 PCR (RESP) NEGATIVE NEGATIVE 10/20/2025 2:05 AM HISTORIAN RESEARCH ASSISTANT [facility] INFLUENZA A PCR (RESP) NEGATIVE NEGATIVE 10/20/2025 2:05 AM HISTORIAN RESEARCH ASSISTANT [facility] INFLUENZA B PCR (RESP) NEGATIVE NEGATIVE 10/20/2025 2:05 AM HISTORIAN RESEARCH ASSISTANT [facility] RSV PCR (RESP) NEGATIVE NEGATIVE 10/20/2025 2:05 AM HISTORIAN RESEARCH ASSISTANT [facility] SWAB NASOPHARYNGEAL STRUCTURE / Unknown 10/20/2025 1:08 AM HISTORIAN RESEARCH ASSISTANT Fantasma Pedroza DO MICROBIOLOGY - GENERAL ORDER ARLENE Final Result [facility] [address] [place] [id number], * CTA CHEST PE PROTOCOL (10/16/2025 11:18 AM HISTORIAN RESEARCH ASSISTANT) Only the most recent of3 resultswithin the time period is included. Anatomical Region Laterality Modality Chest Computed Tomogra phy 10/16/2025 11:3 6 AM HISTORIAN RESEARCH ASSISTANT Impressions 10/16/2025 11:40 AM HISTORIAN RESEARCH ASSISTANT IMPRESSION: 1. No evidence of pulmonary emboli. 2. No evidence of focal pulmonary atelectasis or consolidation. Referred By: Interpreted By: Anthony Larios MD, 10/16/2025 11:36 AM Narrative 10/16/2025 11:40 AM HISTORIAN RESEARCH ASSISTANT [address] [place] [address] Examination: CTA CHEST PE PROTOCOL Exam time: 10/16/2025 11:03 AM Clinical history: Chest pain. Shortness of breath. History bradycardia. Comparison: 09/21/2025 CTA chest Technique: CTA chest was obtained following bolus intravenous injection of 100 mL Isovue 370 contrast material. Coronal and sagittal multiplanar reconstruction images were performed. Coronal MIP, maximum intensity projection images were obtained. CT dose reduction techniques were utilized. Findings: There is no evidence of focal atelectasis or consolidation. No evidence of focal pulmonary nodules or worrisome mass type regions. There is good opacification of the pulmonary arterial system from at least the level of main pulmonary outflow tract to the subsegmental pulmonary artery branches within each lung and there are no findings suggestive of pulmonary emboli. No evidence of pathologically enlarged supraclavicular, axillary, mediastinal, or hilar lymph nodes. Limited images of the upper abdomen demonstrate surgical clips consistent with prior cholecystectomy. Otherwise, limited images of the upper abdomen are unremarkable. Procedure Note Anthony Larios MD - 10/16/[address] [place] [address] Examination: CTA CHEST PE PROTOCOL Exam time: 10/16/2025 11:03 AM Clinical history: Chest pain. Shortness of breath. Historybradycardia. Comparison: 09/21/2025 CTA chest Technique: CTA chest was obtained following bolus intravenous injection of100 mL Isovue 370 contrast material. Coronal and sagittal multiplanarreconstruction images were performed. Coronal MIP, maximum intensityprojection images were obtained. CT dose reduction techniques wereutilized. Findings: There is no evidence of focal atelectasis or consolidation. Noevidence of focal pulmonary nodules or worrisome mass type regions. There is good opacification of the pulmonary arterial system from at leastthe level of main pulmonary outflow tract to the subsegmental pulmonaryartery branches within each lung and there are no findings suggestive ofpulmonary emboli. No evidence of pathologically enlarged supraclavicular, axillary,mediastinal, or hilar lymph nodes. Limited images of the upper abdomen demonstrate surgical clips consistentwith prior cholecystectomy. Otherwise, limited images of the upperabdomen are unremarkable. IMPRESSION: 1. No evidence of pulmonary emboli. 2. No evidence of focal pulmonary atelectasis or consolidation. Referred By: Interpreted By: Anthony Larios MD, 10/16/2025 11:36 AM us Nacho Recinos MD CT Final Result * CULTURE URINE (10/16/2025 10:40 AM HISTORIAN RESEARCH ASSISTANT) Pathologist [facility] SPEC DESCRIPTION URINE CLEAN CATCH 10/16/2025 10:47 AM HISTORIAN RESEARCH ASSISTANT [facility] SPECIAL REQUESTS NO SPECIAL REQUEST 10/16/2025 10:47 AM HISTORIAN RESEARCH ASSISTANT [facility] CULTURE RESULT NO GROWTH (< OR = 1,000 CFU/ML) 10/18/2025 7:18 AM HISTORIAN RESEARCH ASSISTANT [facility] URINE URINE SPECIMEN OBTAINED BY CLEAN CATCH PROCEDURE / Unknown 10/16/2025 10:40 AM HISTORIAN RESEARCH ASSISTANT 10/16/2025 7:36 PM HISTORIAN RESEARCH ASSISTANT us Nacho Recinos MD MICROBIOLOGY - GENERAL ORDERABLE S Final Result Performing Organization Address City/[facility]/ZIP Co de Phone Number [facility] [address] [place] [address], [place] [phone] [facility] [address] [place] [address], * TROPONIN, QUANT (10/16/2025 10:07 AM HISTORIAN RESEARCH ASSISTANT) Only the most recent of4 resultswithin the time period is included. [facility] TROPONIN I HIGH SENSITIVITY 6 0 - 51 ng/L 10/16/2025 10:32 AM HISTORIAN RESEARCH ASSISTANT [facility] BLOOD VENOUS BLOOD SPECIMEN / Unknown 10/16/2025 10:07 AM HISTORIAN RESEARCH ASSISTANT us Nacho Recinos MD LABORATORY Final Result Performing Organization Address City/[facility]/ZIP Co de Phone Number [facility] [address] [place] [address], * MAGNESIUM (10/16/2025 10:07 AM HISTORIAN RESEARCH ASSISTANT) Only the most recent of2 resultswithin the time period is included. Pathologist [facility] MAGNESIUM 1.8 1.8 - 2.4 MG/DL 10/16/2025 10:32 AM HISTORIAN RESEARCH ASSISTANT [facility] BLOOD VENOUS BLOOD SPECIMEN / Unknown 10/16/2025 10:07 AM HISTORIAN RESEARCH ASSISTANT us Nacho Recinos MD LABORATORY Final Result Performing Organization Address [facility]/ZIP Co de Phone Number [facility] [address] [place] [address], * (ABNORMAL) D-DIMER, QUANTITATIVE (10/16/2025 10:07 AM HISTORIAN RESEARCH ASSISTANT) Only the most recent of3 resultswithin the time period is included. [facility] D-DIMER 1,108(H) 0 - 500 ng{FEU}/mL 10/16/2025 10:30 AM HISTORIAN RESEARCH ASSISTANT [facility] Comment: D-Dimer values less than or equal to [...] findings. BLOOD VENOUS BLOOD SPECIMEN / Unknown 10/16/2025 10:07 AM HISTORIAN RESEARCH ASSISTANT us Nacho Recinos MD LABORATORY Final Result Performing Organization Address City/[facility]/ZIP Co de Phone Number [facility] [address] [place] [phone], * LIPID PROFILE (ABSTRACTED) (10/08/2025) [facility] CHOLESTEROL 337 100 - 199 TRIGLYCERIDES 86 0 - 149 HDL 54 >39 LDL (CALCULATED) 269 0 - 99 10/08/2025 us Doc [facility] Abstract LAB-OUTSIDE/ABSTRACTED Edited Result - Final * BASIC METABOLIC PANEL (ABSTRACTED) (10/08/2025) SODIUM S/P/B 142 134 - 144 POTASSIUM S/P/B 4.5 3.5 - 5.2 CHLORIDE S/P/B 104 96 - 106 CO2 24 20 - 29 BUN 15 6 - 20 CREATININE S/P/B 0.79 . CALCIUM S/P/B 9.7 8.7 - 10.2 GLUCOSE 84 70 - 99 mg/dL BUN CREATININE RATIO 19 9 - 23 GFR ESTIMATE 106 >59 BILIRUBIN TOTAL S/P/B <0.2 0 - 1.2 ALKALINE PHOSPHATASE S/P/B 153 41 - 116 AST 18 0 - 40 ALT 16 0 - 32 10/08/2025 us Doc [facility] Abstract LAB-OUTSIDE/ABSTRACTED Edited Result - Final * XR RIBS ADAM (10/07/2025 3:43 PM HISTORIAN RESEARCH ASSISTANT) Anatomical Region Laterality Modality Chest Radiographic Jazmin ging 10/07/2025 3:54 PM HISTORIAN RESEARCH ASSISTANT Impressions 10/07/2025 3:58 PM HISTORIAN RESEARCH ASSISTANT IMPRESSION: 1. No acute cardiopulmonary process identified. 2. Unremarkable right and left ribs. Ordered By: CARLOS RODARTE Interpreted By: Paulino Mitchell MD, 10/07/2025 3:54 PM Narrative 10/07/2025 3:58 PM HISTORIAN RESEARCH ASSISTANT [address] [place] [address] Examination: Chest and bilateral ribs. Exam time: 1510 hours. Clinical history: Pain for one year, worsening over time. Comparison: Portable chest, 08/18/2025. Technique: PA and lateral chest; AP, oblique and spot AP right and left ribs. Findings: The cardiomediastinal silhouette is stable and within normal limits. Pulmonary vascularity is within normal limits. The lungs and pleural spaces appear free of any active process. The bony thorax is unremarkable. Rib detail views disclose no fracture or bony destructive process. Clips from cholecystectomy are noted. Procedure Note Paulino Mitchell MD - 10/07/[address] [place] [address] Examination: Chest and bilateral ribs. Exam time: 1510 hours. Clinical history: Pain for one year, worsening over time. Comparison: Portable chest, 08/18/2025. Technique: PA and lateral chest; AP, oblique and spot AP right and leftribs. Findings: The cardiomediastinal silhouette is stable and within normallimits. Pulmonary vascularity is within normal limits. The lungs andpleural spaces appear free of any active process. The bony thorax isunremarkable. Rib detail views disclose no fracture or bony destructiveprocess. Clips from cholecystectomy are noted. IMPRESSION: 1. No acute cardiopulmonary process identified. 2. Unremarkable right and left ribs. Ordered By: CARLOS RODARTE Interpreted By: Paulino Mitchell MD, 10/07/2025 3:54 PM us Carlos Rodarte [employer] B[employer]-C GENERAL IMAGING Final R esult * XR CHEST PA+LAT (10/07/2025 3:43 PM HISTORIAN RESEARCH ASSISTANT) Anatomical Region Laterality Modality Chest Radiographic Jazmin ging 10/07/2025 3:54 PM HISTORIAN RESEARCH ASSISTANT Impressions 10/07/2025 3:58 PM HISTORIAN RESEARCH ASSISTANT IMPRESSION: 1. No acute cardiopulmonary process identified. 2. Unremarkable right and left ribs. Ordered By: CARLOS RODARTE Interpreted By: Paulino Mitchell MD, 10/07/2025 3:54 PM Narrative 10/07/2025 3:58 PM HISTORIAN RESEARCH ASSISTANT [address] [place] [address] Examination: Chest and bilateral ribs. Exam time: 1510 hours. Clinical history: Pain for one year, worsening over time. Comparison: Portable chest, 08/18/2025. Technique: PA and lateral chest; AP, oblique and spot AP right and left ribs. Findings: The cardiomediastinal silhouette is stable and within normal limits. Pulmonary vascularity is within normal limits. The lungs and pleural spaces appear free of any active process. The bony thorax is unremarkable. Rib detail views disclose no fracture or bony destructive process. Clips from cholecystectomy are noted. Procedure Note Paulino Mitchell MD - 10/07/2025 [place] [id number] [facility] [place] [address] Examination: Chest and bilateral ribs. Exam time: 1510 hours. Clinical history: Pain for one year, worsening over time. Comparison: Portable chest, 08/18/2025. Technique: PA and lateral chest; AP, oblique and spot AP right and leftribs. Findings: The cardiomediastinal silhouette is stable and within normallimits. Pulmonary vascularity is within normal limits. The lungs andpleural spaces appear free of any active process. The bony thorax isunremarkable. Rib detail views disclose no fracture or bony destructiveprocess. Clips from cholecystectomy are noted. IMPRESSION: 1. No acute cardiopulmonary process identified. 2. Unremarkable right and left ribs. Ordered By: CARLOS RODARTE Interpreted By: Paulino Mitchell MD, 10/07/2025 3:54 PM us Carlos Rodarte [employer]-C GENERAL IMAGING Final R esult * (ABNORMAL) HEPATIC FUNCTION PANEL (10/05/2025 6:42 PM HISTORIAN RESEARCH ASSISTANT) BILIRUBIN TOTAL S/P/B 0.1(L) 0.2 - 1.0 MG/DL 10/05/2025 7:08 PM HISTORIAN RESEARCH ASSISTANT [facility] Comment: THIS ASSAY IS NOT RECOMMENDED FOR PATIENTS UNDERGOING TREATMENT WITH ELTROMBOPAG DUE TO THE POTENTIAL FOR FALSELY ELEVATED RESULTS. BILIRUBIN DIRECT S/P/B 0.0 0.0 - 0.2 MG/DL 10/05/2025 7:08 PM HISTORIAN RESEARCH ASSISTANT [facility] ALKALINE PHOSPHATASE S/P/B 143(H) 37 - 98 U/L 10/05/2025 7:08 PM HISTORIAN RESEARCH ASSISTANT [facility] AST 17 15 - 37 U/L 10/05/2025 7:08 PM [facility] ALT 21 14 - 59 U/L 10/05/2025 7:08 PM [facility] TOTAL PROTEIN S/P/B 7.3 6.4 - 8.2 G/DL 10/05/2025 7:08 PM [facility] ALBUMIN S/P/B 3.6 3.4 - 5.0 G/DL 10/05/2025 7:08 PM [facility] BLOOD VENOUS BLOOD SPECIMEN / Unknown 10/05/2025 6:42 PM HISTORIAN RESEARCH ASSISTANT us Kaitlin Colon MD LABORATORY Final Resul t [facility] [place] [address], * BASIC METABOLIC PANEL (10/05/2025 6:42 PM HISTORIAN RESEARCH ASSISTANT) Only the most recent of2 resultswithin the time period is included. SODIUM S/P/B 144 136 - 145 MMOL/L 10/05/2025 7:08 PM [facility] POTASSIUM S/P/B 3.7 3.5 - 5.1 MMOL/L 10/05/2025 7:08 PM [facility] CHLORIDE S/P/B 105 98 - 107 MMOL/L 10/05/2025 7:08 PM [facility] CO2 29.9 21.0 - 32.0 MMOL/L 10/05/2025 7:08 PM [facility] GLUCOSE 89 70 - 99 MG/DL 10/05/2025 7:08 PM [facility] Comment: FASTING GLUCOSE 100 TO 125 MG/DL IS CONSISTENT WITH IMPAIRED FASTING GLUCOSE. FASTING GLUCOSE >125 MG/DL IS CONSISTENT WITH DIABETES. RANDOM GLUCOSE >200 MG/DL WITH HYPERGLYCEMIC SYMPTOMS IS CONSISTENT WITH DIABETES. PER ADA GUIDELINES BUN 15 6 - 24 MG/DL 10/05/2025 7:08 PM HISTORIAN RESEARCH ASSISTANT [facility] CREATININE S/P/B 0.65 0.55 - 1.02 MG/DL 10/05/2025 7:08 PM [facility] CALCIUM S/P/B 8.5 8.4 - 10.5 MG/DL 10/05/2025 7:08 PM HISTORIAN RESEARCH ASSISTANT [facility] ANION GAP 9.1 5.0 - 15.0 MMOL/L 10/05/2025 7:08 PM HISTORIAN RESEARCH ASSISTANT [facility] OSMOLALITY (CALC) 298 MOSM/KG 025 7:08 PM [facility] Comment:REFERENCE RANGE NOT ESTABLISHED GFR ESTIMATE >90 >89 ML/MIN/1. 73 M2 10/05/2025 7:08 PM [facility] GFR NOTES GFR REFERENCE S: 10/05/2025 7:08 PM [facility] Comment: THE ESTIMATED GFR [...] m2 BLOOD VENOUS BLOOD SPECIMEN / Unknown 10/05/2025 6:42 PM HISTORIAN RESEARCH ASSISTANT us Kaitlin Colon MD LABORATORY Final Resul t [facility] [address] [place] [address], * (ABNORMAL) CBC, AUTO, NO DIFF (09/12/2025 1:10 PM HISTORIAN RESEARCH ASSISTANT) WBC 8.21 4.00 - 10.80 x10'3/uL 09/12/2025 1:17 PM HISTORIAN RESEARCH ASSISTANT [facility] RBC 4.34 4.10 - 5.40 x10'6/uL 09/12/2025 1:17 PM HISTORIAN RESEARCH ASSISTANT [facility] HGB 11.2(L) 12.0 - 16.0 G/DL 09/12/2025 1:17 PM HISTORIAN RESEARCH ASSISTANT [facility] HCT 35.9(L) 36.0 - 47.0 % 09/12/2025 1:17 PM HISTORIAN RESEARCH ASSISTANT [facility] MCV 82.7 78.0 - 100.0 FL 09/12/2025 1:17 PM HISTORIAN RESEARCH ASSISTANT [facility] MCH 25.8(L) 27.0 - 31.0 PG 09/12/2025 1:17 PM HISTORIAN RESEARCH ASSISTANT [facility] MCHC 31.2(L) 33.0 - 36.0 G/DL 09/12/2025 1:17 PM [facility] RDW 14.6(H) 11.5 - 14.5 % 09/12/2025 1:17 PM HISTORIAN RESEARCH ASSISTANT [facility] PLT 320 150 - 350 x10'3/uL 09/12/2025 1:17 PM [facility] MPV 9.2 7.4 - 10.4 FL 09/12/2025 1:17 PM [facility] BLOOD VENOUS BLOOD SPECIMEN / Unknown 09/12/2025 1:10 PM HISTORIAN RESEARCH ASSISTANT us Emy Irene MD LABORATORY Final Resul t [facility] [address] [place] [address], * PRO-BRAIN NATRIURETIC PEPTIDE (09/12/2025 1:10 PM HISTORIAN RESEARCH ASSISTANT) PRO-B TYPE NATRIURETIC PEPTIDE 19 <125 PG/ML 09/12/2025 2:48 PM HISTORIAN RESEARCH ASSISTANT [facility] Comment: CUT POINTS ESTABLISHED BY INTERNATIONAL [...] BLOOD SPECIMEN / Unknown 09/12/2025 1:10 PM HISTORIAN RESEARCH ASSISTANT Emy Irene MD LABORATORY Final Resul t Performing Organization Address City/[facility]/ZIP Co de Phone Number [facility] [address] [place] [address], * (ABNORMAL) PROTEIN CREAT RATIO URINE (09/12/2025 9:56 AM HISTORIAN RESEARCH ASSISTANT) PROTEIN URINE TOTAL RANDOM 21.0(H) <11.9 MG/DL 09/12/2025 10:14 AM HISTORIAN RESEARCH ASSISTANT [facility] CREATININE RANDOM (U) 143.0 MG/DL 09/12/2025 10:14 AM HISTORIAN RESEARCH ASSISTANT [facility] Comment:REFERENCE RANGE NOT ESTABLISHED PROTEIN/CREATINI NE RATIO 0.1 09/12/2025 10:14 AM HISTORIAN RESEARCH ASSISTANT [facility] Comment:CALCULATED VALUE. ST ANDARD REFERENCE RANGE HAS NOT BEEN ESTABLISHED. URINE URINE SPECIMEN OBTAINED BY CLEAN CATCH PROCEDURE / Unknown 09/12/2025 9:56 AM HISTORIAN RESEARCH ASSISTANT Emy Irene MD URINE ORDERABLES Final Resu lt [facility] [address] [place] [address], * (ABNORMAL) COMPREHENSIVE METABOLIC PANEL (08/29/2025 8:34 PM HISTORIAN RESEARCH ASSISTANT) Only the most recent of2 resultswithin the time period is included. SODIUM S/P/B 136 136 - 145 MMOL/L 08/29/2025 8:55 PM [facility] POTASSIUM S/P/B 3.6 3.5 - 5.1 MMOL/L 08/29/2025 8:55 PM [facility] CHLORIDE S/P/B 102 98 - 107 MMOL/L 08/29/2025 8:55 PM [facility] CO2 23.5 21.0 - 32.0 MMOL/L 08/29/2025 8:55 PM [facility] GLUCOSE 123(H) 70 - 99 MG/DL 08/29/2025 8:55 PM [facility] Comment: FASTING GLUCOSE 100 TO 125 MG/DL IS CONSISTENT WITH IMPAIRED FASTING GLUCOSE. FASTING GLUCOSE >125 MG/DL IS CONSISTENT WITH DIABETES. RANDOM GLUCOSE >200 MG/DL WITH HYPERGLYCEMIC SYMPTOMS IS CONSISTENT WITH DIABETES. PER ADA GUIDELINES BUN 10 6 - 24 MG/DL 08/29/2025 8:55 PM [facility] CREATININE S/P/B 0.48(L) 0.55 - 1.02 MG/DL 08/29/2025 8:55 PM [facility] CALCIUM S/P/B 9.3 8.4 - 10.5 MG/DL 08/29/2025 8:55 PM [facility] BILIRUBIN TOTAL S/P/B 0.2 0.2 - 1.0 MG/DL 08/29/2025 8:55 PM [facility] Comment: THIS ASSAY IS NOT RECOMMENDED FOR PATIENTS UNDERGOING TREATMENT WITH ELTROMBOPAG DUE TO THE POTENTIAL FOR FALSELY ELEVATED RESULTS. ALKALINE PHOSPHATASE S/P/B 137(H) 37 - 98 U/L 08/29/2025 8:55 PM [facility] AST 13(L) 15 - 37 U/L 08/29/2025 8:55 PM [facility] ALT 14 14 - 59 U/L 08/29/2025 8:55 PM [facility] TOTAL PROTEIN S/P/B 6.1(L) 6.4 - 8.2 G/DL 08/29/2025 8:55 PM [facility] ALBUMIN S/P/B 2.4(L) 3.4 - 5.0 G/DL 08/29/2025 8:55 PM HISTORIAN RESEARCH ASSISTANT [facility] ANION GAP 10.5 5.0 - 15.0 MMOL/L 08/29/2025 8:55 PM HISTORIAN RESEARCH ASSISTANT [facility] OSMOLALITY (CALC) 282 MOSM/KG 025 8:55 PM HISTORIAN RESEARCH ASSISTANT [facility] Comment:REFERENCE RANGE NOT ESTABLISHED GFR ESTIMATE >90 >89 ML/MIN/1. 73 M2 08/29/2025 8:55 PM HISTORIAN RESEARCH ASSISTANT [facility] GFR NOTES GFR REFERENCE S: 08/29/2025 8:55 PM HISTORIAN RESEARCH ASSISTANT [facility] Comment: THE ESTIMATED GFR IS CALCULATED [...] FAILURE: <15 ml/min/1.73 m2 08/29/2025 8:34 PM HISTORIAN RESEARCH ASSISTANT us Lester Valle MD LABORATORY Final Result [facility] [address] [place] [address], * (ABNORMAL) CBC W/DIFF AUTOMATED (08/29/2025 8:34 PM HISTORIAN RESEARCH ASSISTANT) Only the most recent of2 resultswithin the time period is included. WBC 8.72 4.00 - 10.80 x10'3/uL 08/29/2025 8:39 PM HISTORIAN RESEARCH ASSISTANT [facility] RBC 3.94(L) 4.10 - 5.40 x10'6/uL 08/29/2025 8:39 PM HISTORIAN RESEARCH ASSISTANT [facility] HGB 10.2(L) 12.0 - 16.0 G/DL 08/29/2025 8:39 PM [facility] HCT 32.0(L) 36.0 - 47.0 % 08/29/2025 8:39 PM [facility] MCV 81.2 78.0 - 100.0 FL 08/29/2025 8:39 PM [facility] MCH 25.9(L) 27.0 - 31.0 PG 08/29/2025 8:39 PM [facility] MCHC 31.9(L) 33.0 - 36.0 G/DL 08/29/2025 8:39 PM [facility] RDW 14.3 11.5 - 14.5 % 08/29/2025 8:39 PM [facility] PLT 217 150 - 350 x10'3/uL 08/29/2025 8:39 PM [facility] MPV 9.5 7.4 - 10.4 FL 08/29/2025 8:39 PM [facility] CBC COMMENT NORMAL REFERENCE RANGE NOT ESTABLISHED FOR THE PROPORTIONAL LEUKOCYTE DIFFERENTIAL. 08/29/2025 8:39 PM [facility] NEUTROPHILS % 63.2 % 08/29/2025 8:39 PM [facility] LYMPHOCYTES % 21.4 % 08/29/2025 8:39 PM [facility] MONOCYTES % 12.5 % 08/29/2025 8:39 PM [facility] EOSINOPHILS % 1.1 % 08/29/2025 8:39 PM [facility] BASOPHILS % 0.1 % 08/29/2025 8:39 PM [facility] IMMATURE GRANS % 1.7 % 08/29/20 8:39 PM [facility] NRBC % 0.0 % 08/29/2025 8:39 PM [facility] ABS. NEUTROPHILS 5.50 1.60 - 8.30 x10'3/uL 08/29/2025 8:39 PM [facility] ABS. LYMPHOCYTES 1.87 0.80 - 4.70 x10'3/uL 08/29/2025 8:39 PM HISTORIAN RESEARCH ASSISTANT [facility] ABS. MONOCYTES 1.09 0.00 - 1.50 x10'3/uL 08/29/2025 8:39 PM HISTORIAN RESEARCH ASSISTANT [facility] ABS. EOSINOPHILS 0.10 0.00 - 0.40 x10'3/uL 08/29/2025 8:39 PM HISTORIAN RESEARCH ASSISTANT [facility] ABS. BASOPHILS 0.01 0.00 - 0.20 x10'3/uL 08/29/2025 8:39 PM HISTORIAN RESEARCH ASSISTANT [facility] ABS. IMMATURE GRANULOCYTES 0.15(H) 0.00 - 0.03 x10'3/uL 08/29/2025 8:39 PM HISTORIAN RESEARCH ASSISTANT [facility] ABS. NUCLEATED RBC'S 0.00 0.00 - 0.01 x10'3/uL 08/29/2025 8:39 PM HISTORIAN RESEARCH ASSISTANT [facility] 08/29/2025 8:34 PM HISTORIAN RESEARCH ASSISTANT us Lester Valle MD LABORATORY Final Result [facility] [address] [place] [address], * CORONAVIRUS (COVID-19) ANTIGEN (08/29/2025 8:16 PM HISTORIAN RESEARCH ASSISTANT) Only the most recent of2 resultswithin the time period is included. CORONAVIRUS ANTIGEN IA NEGATIVE NEGATIVE 08/29/2025 8:55 PM HISTORIAN RESEARCH ASSISTANT [facility] Comment: NEGATIVE RESULTS DO NOT RULE [...] LABORATORIES. SPECIMEN TYPE NASAL 08/29/2025 8:34 PM HISTORIAN RESEARCH ASSISTANT [facility] NASAL NASAL STRUCTURE / Unknown 08/29/2025 8:16 PM HISTORIAN RESEARCH ASSISTANT us Lester Valle MD MICROBIOLOGY - GENERAL ORDERA BLES Final Result Performing Organization Address City/[facility]/ZIP Co de Phone Number [facility] [address] [place] [address], [place] [phone] * INFLUENZA A & B (08/29/2025 8:16 PM HISTORIAN RESEARCH ASSISTANT) Only the most recent of2 resultswithin the time period is included. SPECIMEN TYPE (INFLUENZA) NASAL 08/29/2025 8:21 PM HISTORIAN RESEARCH ASSISTANT [facility] INFLUENZA A NEGATIVE NEGATIVE 08/29/2025 8:49 PM HISTORIAN RESEARCH ASSISTANT [facility] INFLUENZA B NEGATIVE NEGATIVE 08/29/2025 8:49 PM HISTORIAN RESEARCH ASSISTANT [facility] Comment: A NEGATIVE RESULT DOES NOT EXCLUDE INFLUENZA VIRUS INFECTION. IF INFLUENZA IS CIRCULATING IN YOUR COMMUNITY, A DIAGNOSIS OF INFLUENZA SHOULD BE CONSIDERED BASED ON A PATIENT'S CLINICAL PRESENTATION AND EMPIRIC ANTIVIRAL TREATMENT SHOULD BE CONSIDERED IF INDICATED. NASAL STRUCTURE / Unknown 08/29/2025 8:16 PM HISTORIAN RESEARCH ASSISTANT us Lester Valle MD MICROBIOLOGY - GENERAL ORDERA BLES Final Result Performing Organization Address [facility] Co de Phone Number [facility] [address] [place] [address], [place] [phone] * RESP SYNCYTIAL VIRUS (08/29/2025 8:16 PM HISTORIAN RESEARCH ASSISTANT) Only the most recent of2 resultswithin the time period is included. SPECIMEN TYPE NASOPHARYNGEAL SWAB 08/29/2025 8:21 PM HISTORIAN RESEARCH ASSISTANT [facility] RSV NEGATIVE NEGATIVE 08/29/2025 8:49 PM HISTORIAN RESEARCH ASSISTANT [facility] NASOPHARYNGEAL SWAB / Unknown 08/29/2025 8:16 PM HISTORIAN RESEARCH ASSISTANT us Lester Valle MD MICROBIOLOGY - GENERAL ORDERA BLES Final Result [facility] [address] [place] [address], * (ABNORMAL) POCT glucose (08/29/2025 8:02 PM HISTORIAN RESEARCH ASSISTANT) Only the most recent of2 resultswithin the time period is included. GLUCOSE POC 128(H) 70 - 99 MG/DL 08/29/2025 8:04 PM HISTORIAN RESEARCH ASSISTANT [facility] 08/29/2025 8:02 PM HISTORIAN RESEARCH ASSISTANT Lester Valle MD POCT ORDERABLES - DEVICE Zully l Result [facility] [address] [place] [address], * (ABNORMAL) URINALYSIS (08/29/2025 7:11 PM HISTORIAN RESEARCH ASSISTANT) Only the most recent of3 resultswithin the time period is included. COLOR (U) YELLOW 08/29/2025 7:26 PM [facility] TRANSPARENCY CLEAR 08/29/2025 7:26 PM [facility] SPECIFIC GRAVITY (U) 1.030(H) 1.000 - 1.025 08/29/2025 7:26 PM [facility] Comment:EQUAL TO OR GREATER THAN U PH 6.0 5.0 - 8.0 08/29/2025 7:26 PM [facility] LEUKOCYTES (U) NEGATIVE NEGATIVE 08/29/2025 7:26 PM [facility] NITRITES NEGATIVE NEGATIVE 08/29/2025 7:26 PM [facility] PROTEIN RANDOM (U) TRACE(A) NEGATIVE 08/29/2025 7:26 PM [facility] GLUCOSE (U) NEGATIVE NEGATIVE 08/29/2025 7:26 PM [facility] KETONES MG/DL (U) TRACE(A) NEGATIVE 08/29/2025 7:26 PM [facility] UROBILINOGEN 1.0(H) <1.0 EU/DL 08/29/2025 7:26 PM HISTORIAN RESEARCH ASSISTANT [facility] BILIRUBIN (U) NEGATIVE NEGATIVE 08/29/2025 7:26 PM HISTORIAN RESEARCH ASSISTANT [facility] BLOOD (U) NEGATIVE NEGATIVE 08/29/2025 7:26 PM HISTORIAN RESEARCH ASSISTANT [facility] WBC/HPF 0-5 0 - 5 /HPF 08/29/2025 7:26 PM HISTORIAN RESEARCH ASSISTANT [facility] RBC/HPF 0-5 0 - 5 /HPF 08/29/2025 7:26 PM HISTORIAN RESEARCH ASSISTANT [facility] EPI/LPF FEW /LPF 08/29/2025 7:26 PM HISTORIAN RESEARCH ASSISTANT [facility] BACTERIA (U) 2+ /HPF 08/29/2025 7:26 PM HISTORIAN RESEARCH ASSISTANT [facility] MUCUS PRESENT 08/29/2025 7:26 PM HISTORIAN RESEARCH ASSISTANT [facility] URINE SPECIMEN OBTAINED BY CLEAN CATCH PROCEDURE / Unknown 08/29/2025 7:11 PM HISTORIAN RESEARCH ASSISTANT Lester Valle MD URINE ORDERABLES Final Result [facility] [place] [address], * TROPONIN, QUANT (08/18/2025 7:43 PM CDT) [facility] TROPONIN I HIGH SENSITIVITY 4 0 - 51 ng/L 08/18/2025 9:13 PM CDT [facility] 08/18/2025 7:43 PM CDT Nacho Recinos MD LABORATORY Final Result [facility] [address] [place] [address], * DRUG SCREEN RAPID (08/15/2025 11:35 AM CDT) Pathologist [facility] CANNABINOIDS SCREEN (U) NEGATIVE NEGATIVE 08/15/2025 11:57 AM CDT [facility] PHENCYCLIDINE PCP (U) NEGATIVE NEGATIVE 08/15/2025 11:57 AM CDT [facility] COCAINE METABOLITES (U) NEGATIVE NEGATIVE 08/15/2025 11:57 AM CDT [facility] METHAMPHETAMINE SCREEN (U) NEGATIVE NEGATIVE 08/15/2025 11:57 AM CDT [facility] OPIATE SCREEN (U) NEGATIVE NEGATIVE 025 11:57 AM CDT [facility] AMPHETAMINE SCREEN (U) NEGATIVE NEGATIVE 08/15/2025 11:57 AM CDT [facility] BENZODIAZEPINES SCREEN (U) NEGATIVE NEGATIVE 08/15/2025 11:57 AM CDT [facility] TRICYCLIC ANTIDEPRESSANT SCREEN (U) NEGATIVE NEGATIVE 08/15/2025 11:57 AM CDT [facility] METHADONE (U) NEGATIVE NEGATIVE 08/15/2025 11:57 AM CDT [facility] BARBITURATES SCREEN (U) NEGATIVE NEGATIVE 08/15/2025 11:57 AM CDT [facility] OXYCODONE SCREEN (U) NEGATIVE NEGATIVE 08/15/2025 11:57 AM CDT [facility] URINE TOX COMMENT THIS TEST METHODOLOGY IS DESIGNED AND OFFERED A RAPID TURNAROUND, QUALITATIVE SCREENING PROCEDURE TO AID IN THE IMMEDIATE MEDICAL ASSESSMENT OF PATIENTS SUSPECTED OF SUBSTANCE ABUSE. 08/15/2025 11:36 AM CDT [facility] Comment: CLINICAL CONSIDERATION AND PROFESSIONAL JUDGMENT MUST BE APPLIED TO ANY DRUG OF ABUSE TEST RESULT, BOTH POSITIVE AND NEGATIVE. CONFIRMATORY QUANTITATIVE RESULTS ARE AVAILABLE THROUGH OUR REFERENCE LAB[facility]. URINE SPECIMEN / Unknown 08/15/2025 11:35 AM CDT us Yeni Pinto MD URINE ORDERABLES Final Result [facility] [address] [place] [address], * STREP A RAPID (08/14/2025 11:06 AM CDT) SPECIMEN SOURCE THROAT 08/14/2025 11:11 AM CDT [facility] RAPID STREP TEST NEGATIVE NEGATIVE 08/14/2025 11:22 AM CDT [facility] STRUCTURE OF ANTERIOR REGION OF NECK / Unknown 08/14/2025 11:06 AM CDT us Naldo Cadet DO MICROBIOLOGY - GENERAL ORDERAB LES Final Result [facility] [address] [place] [address], from Last 3 Months Insurance [place] [employer] Care Teams Steam Drier Operator Relationship Specialty Start Date End Date Tanner Paige MD [address] [place] [address] PCP - General FAMILY PRACTICE 07/01/24 Janell Celaya APNP [address] [place] [address] NURSE PRACTITIONER 12/01/24 Tara Miranda ANP-BC [address] [place] [address] Nurse Practitioner NURSE PRACTITIONER ADULT HEALTH 10/08/25 Carlos Rodarte NP-C [address] [place] [address] Nurse Practitioner Family 10/25/25
--- OUTSIDE RECORDS SUMMARY | 2025-10-27 11:24 | XMS_ITS | Clinical Summary ---
Author Organization [employer] [address] - [address]22 Address [address] [facility] 3rd [place] [address] Phone Care Team Providers Care Reach Truck Operator Name Role Phone Unavailable Primary Care Provider Unavailabl e Allergies No known active allergies Medications vits15/iron/fol ic/dss ( VIT 54-ILUC-DATIP-D SS ORAL) Take by mouth. 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
--- OUTSIDE RECORDS SUMMARY | 2025-10-27 11:24 | XMS_ITS ---
Author Organization Unknown Address [address] [place] [phone] Phone Care Team Providers Care Burning Supervisor Name Role Phone SHAYNA CRESPO Attending Unavailable [...] DIFF - Collect Date/T randall: 07/26/2024 20:25 [facility] ID: [id number] [address] [place], [place], [phone] LOINC: 79332-0 Test Value Unit Reference Range Code Code System Flag WBC 9.1 10^3uL L=4.8 H=10.8 RBC 4.76 10^6uL L=4.20 H=5.40 HEMOGLOBIN 12.7 g/dL L=12.0 H=16.0 718-7 LOINC HEMATOCRIT 40.5 VOL% L=37.0 H=47.0 4544-3 LOINC MCV 85.1 fL L=81.0 H=99.0 MCH 26.7 pg L=27.0 H=32.0 L MCHC 31.4 g/dL L=32.0 H=36.0 L PLATELETS 290 10^3uL L=100 H=400 71405-8 LOINC RDW 13.2 % L=11.7 H=15.5 %GRAN 55.5 % L=40.0 H=70.0 21166-3 LOINC %LYMPH 33.0 % L=20.0 H=45.0 736-9 LOINC %MONO 8.4 % L=2.0 H=10.0 96235-5 LOINC %EOS 2.5 % L=0.0 H=6.0 713-8 LOINC %BASO 0.4 % L=0.0 H=3.0 706-2 LOINC #NEUT 5.0 10^3uL L=1.9 H=7.6 64680-6 LOINC #LYMPH 3.0 10^3uL L=0.9 H=4.9 47534-5 LOINC #MONO 0.8 10^3uL L=0.1 H=0.9 26286-7 LOINC #EOS 0.2 10^3uL L=0.0 H=0.6 712-0 LOINC #BASO 0.04 10^3uL L=0.00 H=0.10 84558-0 LOINC #IM GRANS 0.0 10^3uL L=0.0 H=7.0 31147-9 LOINC %IM GRANS 0.2 % L=0.0 H=5.0 25933-2 LOINC %NRB 0.0 L=0.0 H=0.2 85608-8 LOINC #NRB 0.000 L=0.000 H=0.012 65606-6 LOINC MANUAL DIFF NOT INDICATED RBC MORPH NOT INDICATED COMPREHENSIVE METABOLIC PANE L - Collect Date/Time: 07/26/2024 20:25 [facility] ID: [id number] [address] [place], [place], [phone] LOINC: 41013-5 Test Value Unit Reference Range Code Code [...] 2028-9 LOINC ANION GAP 16 L=10 H=20 80035-9 LOINC OSMOLALITY 296 mOs/kG L=280 H=296 22115-4 LOINC BUN/CREAT 25.0 3097-3 LOINC CALCIUM 10.1 mg/dL L=8.3 H=10.5 26992-7 LOINC AST 25 U/L L=15 H=46 1920-8 LOINC ALT 20 U/L L=9 H=72 1742-6 LOINC ALKALINE PHOS 71 U/L L=38 H=126 6768-6 LOINC TOTAL BILI 0.4 mg/dL L=0.2 H=1.3 1974-2 LOINC ALBUMIN 4.7 G/dL L=3.5 H=5.0 1751-7 LOINC TOTAL PROTEIN 8.2 g/L L=6.3 H=8.2 5-2 LOINC A/G RATIO 1.3 95406-2 LOINC AGE 24 91536-8 LOINC eGFR NON-AFR 93 ml/min eGFR AFR AMER 113 ml/min CPK - Collect Date/Time: 20:25 [facility] ID: [id number] [address] [place], [place], [phone] LOINC: 6 Test Value Unit Reference Range Code Code System Flag CPK 92 U/L L=30 H=170 2156-6 LOINC LACTIC ACID - Collect Date/T randall: 07/26/2024 20:25 [facility] ID: [id number] [address] [place] [address], [phone] LOINC: 37454-5 Test Value Unit Reference Range Code Code System Flag LACTIC ACID 0.7 mmol/L L=0.7 H=2.6 38078-9 LOINC MAGNESIUM - Collect Date/Patricio e: 07/26/2024 20:25 [facility] ID: [id number] [address] [place] [address], [phone] LOINC: 76856-1 Test Value Unit Reference Range Code Code System Flag MAGNESIUM 1.9 mg/dL L=1.6 H=2.3 44708-1 LOINC Social History Type Status Start Date End Date Code Code Syst em Smoking History Never smoker (Never Smoked) 915621401 SNOMED CT Sex Female Assessment You had [...] 6002 SNOMED-CT UNSPECIFIED ABDOMINAL PAIN active 215 85287 SNOMED-CT Allergies and Adverse Reactions Allergy Substance Reaction Severity Start Date Concern Status Co de Code System AMOXICILLIN Active 723 RxNorm TERBUTALINE Active 08639 RxNorm Plan of Treatment Stress Test Treadmill 01/21/2025 Oil Treater Consult 04/27/2025 Encounters Encounter Diagnosis Start Date [...]
--- OUTSIDE RECORDS SUMMARY | 2025-10-27 11:24 | XMS_ITS ---
Author Organization Unknown Address [address] [place] [phone] Phone Care Team Providers Care Director Athletic Name Role Phone LADONNA SCHUMACHER Attending Unavailable [...] Quang Decker M.D. LC: GABRIEL Report ID: [id number] Reading Location: [place] [address] Social History Type Status Start Date End Date Code Code Syst em Smoking History Never smoker (Never Smoked) 735206033 SNOMED CT Sex Female Assessment You had [...] 6002 SNOMED-CT UNSPECIFIED ABDOMINAL PAIN active 215 76220 SNOMED-CT Allergies and Adverse Reactions Allergy Substance Reaction Severity Start Date Concern Status Co de Code System AMOXICILLIN Active 723 RxNorm TERBUTALINE Active 46759 RxNorm Plan of Treatment Stress Test Treadmill 01/21/2025 Beer Brewer Consult 04/27/2025 Encounters Encounter Diagnosis Start Date [...]
--- OUTSIDE RECORDS SUMMARY | 2025-10-27 11:25 | XMS_ITS ---
Author Organization Unknown Address [address] [place] [phone] Phone Care Team Providers Care Early Breastfeeding Care Specialist Name Role Phone MARK Fernandez Attending [...] if indicated - Collect Date/Time: 05/12/2024 22:50 [facility] ID: [id number] [place], [place], [id number] LOINC: 67660-8 Test Value Unit Reference Range Code Code System Flag UR SOURCE CLEAN CATCH 40988-3 LOINC COLOR YELLOW YELLOW 5778-6 LOINC CLARITY SL CLOUDY CLEAR 05368-5 LOINC SPEC GRAVITY 1.025 1.000-1.030 5811-5 LOINC PH 6.0 5.0 - 6.5 5803-2 LOINC LEUK EST NEGATIVE NEGATIVE 5799-2 LOINC NITRATE NEGATIVE NEGATIVE PROTEIN NEGATIVE NEGATIVE 5804-0 LOINC GLUCOSE NEGATIVE NEGATIVE 99254-2 LOINC KETONES NEGATIVE NEGATIVE 63859-9 LOINC UROBILINOGEN 0.2 NEGATIVE 5818-0 LOINC BILIRUBIN NEGATIVE NEGATIVE 54857-5 LOINC BLOOD NEGATIVE NEGATIVE 02997-8 LOINC WBC 2-5 0 - 2 89383-2 LOINC RBC 0-2 0 - 2 91687-8 LOINC EPITHELIAL MODERATE RARE-FEW 96864-9 LOINC A BACTERIA 1+ NONE SEEN 89341-7 LOINC MUCUS FEW NONE SEEN 8247-9 LOINC YEAST NOT PRESENT NOT PRESENT 96932-6 LOINC CASTS NONE SEEN 18439-3 LOINC CRYSTALS NONE SEEN 25450-4 LOINC CULTURE? NO 8251-1 LOINC DIAGNOSIS N/A MAGNESIUM - Collect Date/Patricio e: 05/12/2024 21:25 [facility] ID: [id number] [place], [place], [id number] LOINC: 66444-5 Test Value Unit Reference Range Code Code System Flag MAGNESIUM 1.8 mg/dL L=1.6 H=2.3 93651-5 LOINC CBC W/ DIFF - Collect Date/T randall: 05/12/2024 21:25 [facility] ID: [id number] [address] [place], [place], [phone] LOINC: 23147-4 Test Value Unit Reference Range Code Code System Flag WBC 8.5 10^3uL L=4.8 H=10.8 RBC 4.72 10^6uL L=4.20 H=5.40 HEMOGLOBIN 12.2 g/dL L=12.0 H=16.0 718-7 LOINC HEMATOCRIT 39.0 VOL% L=37.0 H=47.0 4544-3 LOINC MCV 82.6 fL L=81.0 H=99.0 MCH 25.8 pg L=27.0 H=32.0 L MCHC 31.3 g/dL L=32.0 H=36.0 L PLATELETS 278 10^3uL L=100 H=400 18433-4 LOINC RDW 13.5 % L=11.7 H=15.5 %GRAN 47.6 % L=40.0 H=70.0 49551-4 LOINC %LYMPH 39.8 % L=20.0 H=45.0 736-9 LOINC %MONO 8.8 % L=2.0 H=10.0 64138-8 LOINC %EOS 3.3 % L=0.0 H=6.0 713-8 LOINC %BASO 0.4 % L=0.0 H=3.0 706-2 LOINC #NEUT 4.1 10^3uL L=1.9 H=7.6 13114-2 LOINC #LYMPH 3.4 10^3uL L=0.9 H=4.9 56101-2 LOINC #MONO 0.8 10^3uL L=0.1 H=0.9 12628-8 LOINC #EOS 0.3 10^3uL L=0.0 H=0.6 712-0 LOINC #BASO 0.03 10^3uL L=0.00 H=0.10 62079-9 LOINC #IM GRANS 0.0 10^3uL L=0.0 H=7.0 05150-5 LOINC %IM GRANS 0.1 % L=0.0 H=5.0 62418-2 LOINC %NRB 0.0 L=0.0 H=0.2 77320-6 LOINC #NRB 0.000 L=0.000 H=0.012 14563-1 LOINC MANUAL DIFF NOT INDICATED RBC MORPH NOT INDICATED COMPREHENSIVE METABOLIC PANE L - Collect Date/Time: 05/12/2024 21:25 [facility] ID: [id number] [address] [place], [place], [phone] LOINC: 42788-7 Test Value Unit Reference Range Code Code [...] 2028-9 LOINC ANION GAP 8 L=10 H=20 41135-4 LOINC L OSMOLALITY 289 mOs/kG L=280 H=296 51346-6 LOINC BUN/CREAT 20.0 3097-3 LOINC CALCIUM 9.0 mg/dL L=8.3 H=10.5 19634-7 LOINC AST 28 U/L L=15 H=46 1920-8 LOINC ALT 20 U/L L=9 H=72 1742-6 LOINC ALKALINE PHOS 107 U/L L=38 H=126 6768-6 LOINC TOTAL BILI 0.2 mg/dL L=0.2 H=1.3 1975-2 LOINC ALBUMIN 4.1 G/dL L=3.5 H=5.0 1751-7 LOINC TOTAL PROTEIN 7.1 g/L L=6.3 H=8.2 2885-2 LOINC A/G RATIO 1.4 51891-9 LOINC AGE 24 75068-4 LOINC eGFR NON-AFR 81 ml/min eGFR AFR AMER 98 ml/min TSH - Collect Date/Time: 21:25 [facility] ID: [id number] [address] [place], [place], [phone] LOINC: 90268-4 Test Value Unit Reference Range Code Code System Flag TSH. 0.325 uIU/L L=0.470 H=4.680 11181-0 LOINC L Social History Type Status Start Date End Date Code Code Syst em Smoking History Never smoker (Never Smoked) 031837104 SNOMED CT Sex Female Assessment You had [...] 6002 SNOMED-CT UNSPECIFIED ABDOMINAL PAIN active 215 66989 SNOMED-CT Allergies and Adverse Reactions Allergy Substance Reaction Severity Start Date Concern Status Co de Code System AMOXICILLIN Active 723 RxNorm TERBUTALINE Active 81582 RxNorm Plan of Treatment Stress Test Treadmill 01/21/2025 Patient Financial Services Manager Consult 04/27/2025 Encounters Encounter Diagnosis Start Date [...]
--- OUTSIDE RECORDS SUMMARY | 2025-10-27 11:25 | XMS_ITS ---
Author Organization Unknown Address [address] [place] [phone] Phone Care Team Providers Care Director Of Ancillary Services Name Role Phone DAVID ASHTON Attending Unavailable [...] PCR CEPHEID - Collect Date/Time: 11/06/2023 00:50 [facility] ID: [id number] [address] [place] [address], [phone] LOINC: 93305-2 Test Value Unit Reference Range Code Code System Flag CT/NG SOURCE: GENITAL CT NOT DETECTED NORMAL: NOT DETECTED 18914-0 LOINC NG NOT DETECTED NORMAL: NOT DETECTED 51609-7 LOINC SEND TO IFC? NO TV Trich genital swab/urine PCR CEPHEID - Collect Date/Time: 11/06/2023 00:50 [facility] ID: [id number] [address] [place] [address], [phone] LOINC: 27563-2 Test Value Unit Reference Range Code Code System Flag TV TRICH SOURCE: GENITAL TV TRICH NOT DETECTED SEND TO IFC? NO COMPREHENSIVE METABOLIC PANE L - Collect Date/Time: 11/06/2023 00:29 [facility] ID: [id number] [address] [place] [address], [phone] LOINC: 77967-9 Test Value Unit Reference Range Code Code [...] 2027-9 LOINC ANION GAP 12 L=10 H=20 08628-6 LOINC OSMOLALITY 280 mOs/kG L=280 H=296 84677-3 LOINC BUN/CREAT 18.0 3097-3 LOINC CALCIUM 8.9 mg/dL L=8.3 H=10.5 75864-2 LOINC AST 18 U/L L=15 H=46 1920-8 LOINC ALT 12 U/L L=9 H=72 1742-6 LOINC ALKALINE PHOS 56 U/L L=38 H=126 6768-6 LOINC TOTAL BILI 0.2 mg/dL L=0.2 H=1.3 1975-2 LOINC ALBUMIN 3.6 G/dL L=3.5 H=5.0 1751-7 LOINC TOTAL PROTEIN 6.8 g/L L=6.3 H=8.2 2885-2 LOINC A/G RATIO 1.1 53835-8 LOINC AGE 23 24362-2 LOINC eGFR NON-AFR 161 ml/min eGFR AFR AMER 195 ml/min BETA HCG-QUANT - Collect Neil e/Time: 11/06/2023 00:29 [facility] ID: [id number] [address] [place] [address], [id number] LOINC: 36699-9 Test Value Unit Reference Range Code Code System Flag BETA HCG-QUANT 06112.00 mIU/mL L=0.00 H=6.00 88230-7 LOINC H LIPASE - Collect Date/Time: 11/06/2023 00:29 [facility] ID: [id number] [address] [place] [address], [phone] LOINC: 3040-3 Test Value Unit Reference Range Code Code System Flag LIPASE 76 U/L L=23 H=300 3040-3 LOINC CBC W/ DIFF - Collect Date/T randall: 11/06/2023 00:29 [facility] ID: [id number] [address] [place], [place], [id number] LOINC: 27737-1 Test Value Unit Reference Range Code Code System Flag WBC 11.2 10^3uL L=4.8 H=10.8 H RBC 3.51 10^6uL L=4.20 H=5.40 L HEMOGLOBIN 10.0 g/dL L=12.0 H=16.0 718-7 LOINC L HEMATOCRIT 30.5 VOL% L=37.0 H=47.0 4544-3 LOINC L MCV 86.9 fL L=81.0 H=99.0 MCH 28.5 pg L=27.0 H=32.0 MCHC 32.8 g/dL L=32.0 H=36.0 PLATELETS 330 10^3uL L=100 H=400 43617-2 LOINC RDW 12.4 % L=11.7 H=15.5 %GRAN 62.6 % L=40.0 H=70.0 52755-3 LOINC %LYMPH 26.0 % L=20.0 H=45.0 736-9 LOINC %MONO 8.1 % L=2.0 H=10.0 94981-2 LOINC %EOS 2.3 % L=0.0 H=6.0 713-8 LOINC %BASO 0.2 % L=0.0 H=3.0 706-2 LOINC #NEUT 7.0 10^3uL L=1.9 H=7.6 20420-8 LOINC #LYMPH 2.9 10^3uL L=0.9 H=4.9 66745-2 LOINC #MONO 0.9 10^3uL L=0.1 H=0.9 66028-4 LOINC #EOS 0.3 10^3uL L=0.0 H=0.6 712-0 LOINC #BASO 0.02 10^3uL L=0.00 H=0.10 23781-6 LOINC #IM GRANS 0.1 10^3uL L=0.0 H=7.0 27227-5 LOINC %IM GRANS 0.8 % L=0.0 H=5.0 36628-9 LOINC %NRB 0.0 L=0.0 H=0.2 44926-8 LOINC #NRB 0.000 L=0.000 H=0.012 14371-7 LOINC MANUAL DIFF NOT INDICATED RBC MORPH NOT INDICATED URINALYSIS w/Microscopy/C&S if indicated - Collect Date/Time: 11/06/2023 00:20 [facility] ID: [id number] [address] [place], [place], [phone] LOINC: 48334-5 Test Value Unit Reference Range Code Code System Flag UR SOURCE UNKNOWN 26449-7 LOINC COLOR YELLOW YELLOW 5778-6 LOINC CLARITY SL CLOUDY CLEAR 74818-9 LOINC SPEC GRAVITY >=1.030 1.000-1.030 5811-5 LOINC A PH 6.0 5.0 - 6.5 5803-2 LOINC LEUK EST NEGATIVE NEGATIVE 5799-2 LOINC NITRATE NEGATIVE NEGATIVE PROTEIN NEGATIVE NEGATIVE 5804-0 LOINC GLUCOSE NEGATIVE NEGATIVE 51662-6 LOINC KETONES TRACE NEGATIVE 99611-4 LOINC A UROBILINOGEN 0.2 NEGATIVE 5818-0 LOINC BILIRUBIN NEGATIVE NEGATIVE 09910-3 LOINC BLOOD NEGATIVE NEGATIVE 40100-0 LOINC WBC 0-2 0 - 2 43688-9 LOINC RBC 0-2 0 - 2 48300-3 LOINC EPITHELIAL MODERATE RARE-FEW 84199-3 LOINC A BACTERIA FEW NONE SEEN 57037-0 LOINC MUCUS MODERATE NONE SEEN 8247-9 LOINC A YEAST NOT PRESENT NOT PRESENT 72370-9 LOINC CASTS NONE SEEN 88995-1 LOINC CRYSTALS NONE SEEN 23786-1 LOINC CULTURE? NO 8251-1 LOINC DIAGNOSIS ABN LAB RESU US GALLBLADDER - Completed: 11/06/2023 05:33 LOINC: EXAM DESCRIPTION: US GALLBLADDER REASON FOR STUDY: PT COMPLAINS OF INTERMITTENT EPIGASTRIC PAIN X 5 HOURS. STATES SHE VOMITTED BILE. 16 WKS , STATES SHE HAD NORMAL ULTRASOUND AT 9 WKS GESTATION AT [facility] [place], LMP=07/21/23 EDC=04/16/24, Duration: X 5 HOURS TECHNIQUE: [...] Lucretia Issa M.D. TW: DARRYN Report ID: [id number] Reading Location: [id number] US OB LIMITED - Completed: 0 11/06/2023 05:30 LOINC: EXAM DESCRIPTION: US OB LIMITED REASON FOR STUDY: PT COMPLAINS OF INTERMITTENT EPIGASTRIC PAIN X 5 HOURS. STATES SHE VOMITTED BILE. 16 WKS , STATES SHE HAD NORMAL ULTRASOUND AT 9 WKS GESTATION AT [facility], LMP=07/21/23 EDC=04/16/24, Duration: X 5 HOURS Beta-hCG: [...] Lucretia Issa M.D. TW: DARRYN Report ID: [id number] Reading Location: [id number] Social History Type Status Start Date End Date Code Code Syst em Smoking History Never smoker (Never Smoked) 683735742 SNOMED CT Sex Female Assessment You had [...] 6002 SNOMED-CT UNSPECIFIED ABDOMINAL PAIN active 215 78724 SNOMED-CT Allergies and Adverse Reactions Allergy Substance Reaction Severity Start Date Concern Status Co de Code System AMOXICILLIN Active 723 RxNorm TERBUTALINE Active 55858 RxNorm Plan of Treatment Stress Test Treadmill 01/21/2025 Rn Invasive Consult 04/27/2025 Encounters Encounter Diagnosis Start Date [...]
--- OUTSIDE RECORDS SUMMARY | 2025-10-27 11:26 | XMS_ITS ---
Author Organization Unknown Address [address] [place] [phone] Phone Care Team Providers Care Machine Tool Designer Name Role Phone SHAYNA CRESPO Attending Unavailable [...] if indicated - Collect Date/Time: 09/24/2023 11:29 [facility] ID: [id number] [address] [place] [address], [id number] LOINC: 62386-7 Test Value Unit Reference Range Code Code System Flag UR SOURCE CLEAN CATCH 00337-4 LOINC COLOR YELLOW YELLOW 5778-6 LOINC CLARITY SL CLOUDY CLEAR 54713-0 LOINC SPEC GRAVITY 1.025 1.000-1.030 5811-5 LOINC PH 6.0 5.0 - 6.5 5803-2 LOINC LEUK EST NEGATIVE NEGATIVE 5799-2 LOINC NITRATE NEGATIVE NEGATIVE PROTEIN TRACE NEGATIVE 5804-0 LOINC GLUCOSE NEGATIVE NEGATIVE 59722-9 LOINC KETONES 1+ NEGATIVE 35765-1 LOINC A UROBILINOGEN 0.2 NEGATIVE 5818-0 LOINC BILIRUBIN NEGATIVE NEGATIVE 08618-6 LOINC BLOOD NEGATIVE NEGATIVE 42848-4 LOINC WBC 0-2 0 - 2 29896-5 LOINC RBC 0-2 0 - 2 18574-9 LOINC EPITHELIAL MODERATE RARE-FEW 85440-6 LOINC A BACTERIA 1+ NONE SEEN 42316-0 LOINC MUCUS 2+ NONE SEEN 8247-9 LOINC A YEAST NOT PRESENT NOT PRESENT 94513-2 LOINC CASTS NONE SEEN 48751-2 LOINC CRYSTALS NONE SEEN 49468-7 LOINC CULTURE? NO 8251-1 LOINC DIAGNOSIS N/A CBC W/ DIFF - Collect Date/T randall: 09/24/2023 10:23 [facility] ID: [id number] [place] [address], [phone] LOINC: 80427-4 Test Value Unit Reference Range Code Code System Flag WBC 8.5 10^3uL L=4.8 H=10.8 RBC 3.68 10^6uL L=4.20 H=5.40 L HEMOGLOBIN 10.3 g/dL L=12.0 H=16.0 718-7 LOINC L HEMATOCRIT 30.6 VOL% L=37.0 H=47.0 4544-3 LOINC L MCV 83.2 fL L=81.0 H=99.0 MCH 28.0 pg L=27.0 H=32.0 MCHC 33.7 g/dL L=32.0 H=36.0 PLATELETS 276 10^3uL L=100 H=400 77603-9 LOINC RDW 11.9 % L=11.7 H=15.5 %GRAN 71.4 % L=40.0 H=70.0 43186-2 LOINC H %LYMPH 19.1 % L=20.0 H=45.0 736-9 LOINC L %MONO 8.3 % L=2.0 H=10.0 10865-8 LOINC %EOS 0.6 % L=0.0 H=6.0 713-8 LOINC %BASO 0.1 % L=0.0 H=3.0 706-2 LOINC #NEUT 6.1 10^3uL L=1.9 H=7.6 14563-5 LOINC #LYMPH 1.6 10^3uL L=0.9 H=4.9 47453-0 LOINC #MONO 0.7 10^3uL L=0.1 H=0.9 61005-4 LOINC #EOS 0.1 10^3uL L=0.0 H=0.6 712-0 LOINC #BASO 0.01 10^3uL L=0.00 H=0.10 85355-7 LOINC #IM GRANS 0.0 10^3uL L=0.0 H=7.0 59803-4 LOINC %IM GRANS 0.5 % L=0.0 H=5.0 45959-5 LOINC %NRB 0.0 L=0.0 H=0.2 83710-6 LOINC #NRB 0.000 L=0.000 H=0.012 50167-6 LOINC MANUAL DIFF NOT INDICATED RBC MORPH NOT INDICATED COMPREHENSIVE METABOLIC PANE L - Collect Date/Time: 09/24/2023 10:23 [facility] ID: [id number] [place], [place], [id number] LOINC: 82906-5 Test Value Unit Reference Range Code Code [...] 2028-9 LOINC ANION GAP 8 L=10 H=20 92461-4 LOINC L OSMOLALITY 278 mOs/kG L=280 H=296 48507-1 LOINC L BUN/CREAT 18.0 3097-3 LOINC CALCIUM 8.6 mg/dL L=8.3 H=10.5 02226-7 LOINC AST 23 U/L L=15 H=46 1920-8 LOINC ALT 22 U/L L=9 H=72 1742-6 LOINC ALKALINE PHOS 61 U/L L=38 H=126 6768-6 LOINC TOTAL BILI 0.3 mg/dL L=0.2 H=1.3 1975-2 LOINC ALBUMIN 3.9 G/dL L=3.5 H=5.0 1751-7 LOINC TOTAL PROTEIN 6.9 g/L L=6.3 H=8.2 2885-2 LOINC A/G RATIO 1.3 50578-9 LOINC AGE 23 52734-7 LOINC eGFR NON-AFR 161 ml/min eGFR AFR AMER 195 ml/min MAGNESIUM - Collect Date/Patricio e: 09/24/2023 10:23 [facility] ID: [id number] [place], [place], [id number] LOINC: 01754-9 Test Value Unit Reference Range Code Code System Flag MAGNESIUM 1.7 mg/dL L=1.6 H=2.3 38109-8 LOINC HIV 4th GEN Ab 1&2 p24 Ag in -house - Collect Date/Time: 09/24/2023 10:23 [facility] ID: [id number] [address] [place], [place], [phone] LOINC: 42608-5 Test Value Unit Reference Range Code Code System Flag HIV-1 Ab NEGATIVE NORMAL: NON REACTIVE/NE HIV-2 Ab NEGATIVE HIV-p24 Ag NEGATIVE SEND TO IFC? NO REFLEX? NO 5778-6 LOINC Social History Type Status Start Date End Date Code Code Syst em Smoking History Never smoker (Never Smoked) 802151606 SNOMED CT Sex Female Assessment You had [...] 6002 SNOMED-CT UNSPECIFIED ABDOMINAL PAIN active 215 23341 SNOMED-CT Allergies and Adverse Reactions Allergy Substance Reaction Severity Start Date Concern Status Co de Code System AMOXICILLIN Active 723 RxNorm TERBUTALINE Active 87987 RxNorm Plan of Treatment Stress Test Treadmill 01/21/2025 Pharmacy Messenger Consult 04/27/2025 Encounters Encounter Diagnosis Start Date [...]
--- OUTSIDE RECORDS SUMMARY | 2025-10-27 11:26 | XMS_ITS ---
Author Organization Unknown Address [address] [place] [phone] Phone Care Team Providers Care Stone Hand Name Role Phone MARK Fernandez Attending Unavailable [...] em Smoking History Never smoker (Never Smoked) 972977424 SNOMED CT Sex Female Assessment You had [...] 6002 SNOMED-CT UNSPECIFIED ABDOMINAL PAIN active 215 82393 SNOMED-CT Allergies and Adverse Reactions Allergy Substance Reaction Severity Start Date Concern Status Co de Code System AMOXICILLIN Active 723 RxNorm TERBUTALINE Active 63058 RxNorm Plan of Treatment Stress Test Treadmill 01/21/2025 Lugger Consult 04/27/2025 Encounters Encounter Diagnosis Start Date [...]
--- OUTSIDE RECORDS SUMMARY | 2025-10-27 11:26 | XMS_ITS ---
Author Organization Unknown Address [address] [place] [phone] Phone Care Team Providers Care Segment Producer Name Role Phone RUFUS SEGAL Attending Unavailable [...] em Smoking History Never smoker (Never Smoked) 763434820 SNOMED CT Sex Female Assessment You had [...] 6002 SNOMED-CT UNSPECIFIED ABDOMINAL PAIN active 215 20277 SNOMED-CT Allergies and Adverse Reactions Allergy Substance Reaction Severity Start Date Concern Status Co de Code System AMOXICILLIN Active 723 RxNorm TERBUTALINE Active 89133 RxNorm Plan of Treatment Stress Test Treadmill 01/21/2025 Trimming Cutter Consult 04/27/2025 Encounters Encounter Diagnosis Start Date [...]
--- OUTSIDE RECORDS SUMMARY | 2025-10-27 11:26 | XMS_ITS ---
Author Organization Unknown Address [address] [place] [phone] Phone Care Team Providers Care Robotic Welder Name Role Phone DAVID ASHTON Attending Unavailable [...] em Smoking History Never smoker (Never Smoked) 791416129 SNOMED CT Sex Female Assessment You had [...] 6002 SNOMED-CT UNSPECIFIED ABDOMINAL PAIN active 215 43551 SNOMED-CT Allergies and Adverse Reactions Allergy Substance Reaction Severity Start Date Concern Status Co de Code System AMOXICILLIN Active 723 RxNorm TERBUTALINE Active 35432 RxNorm Plan of Treatment Stress Test Treadmill 01/21/2025 Licensing Officer Consult 04/27/2025 Encounters Encounter Diagnosis Start [...]
--- OUTSIDE RECORDS SUMMARY | 2025-10-27 11:27 | XMS_ITS ---
Author Organization Unknown Address [address] [place] [phone] Phone Care Team Providers Care Jewel Setter Name Role Phone SHAYNA CRESPO Attending Unavailable [...] if indicated - Collect Date/Time: 03/25/2024 01:05 [facility] ID: [id number] [address] [place], [place], [id number] LOINC: 60171-8 Test Value Unit Reference Range Code Code System Flag UR SOURCE CLEAN CATCH 74991-5 LOINC COLOR YELLOW YELLOW 5778-6 LOINC CLARITY SL CLOUDY CLEAR 98328-1 LOINC SPEC GRAVITY >=1.030 1.000-1.030 5811-5 LOINC A PH 5.5 5.0 - 6.5 5803-2 LOINC LEUK EST NEGATIVE NEGATIVE 5799-2 LOINC NITRATE NEGATIVE NEGATIVE PROTEIN NEGATIVE NEGATIVE 5804-0 LOINC GLUCOSE 3+ NEGATIVE 05660-7 LOINC KETONES TRACE NEGATIVE 42183-0 LOINC A UROBILINOGEN 0.2 NEGATIVE 5818-0 LOINC BILIRUBIN NEGATIVE NEGATIVE 36534-6 LOINC BLOOD NEGATIVE NEGATIVE 29492-1 LOINC WBC 2-5 0 - 2 98857-9 LOINC RBC 0-2 0 - 2 83329-9 LOINC EPITHELIAL MODERATE RARE-FEW 39169-0 LOINC A BACTERIA 1+ NONE SEEN 87555-9 LOINC MUCUS MODERATE NONE SEEN 8247-9 LOINC A YEAST NOT PRESENT NOT PRESENT 60328-9 LOINC CASTS NONE SEEN 05798-1 LOINC CRYSTALS NONE SEEN 32265-6 LOINC CULTURE? NO 8251-1 LOINC DIAGNOSIS N/A CBC W/ DIFF - Collect Date/T randall: 03/25/2024 00:13 [facility] ID: [id number] [address] [place], [place], [id number] LOINC: 91581-0 Test Value Unit Reference Range Code Code System Flag WBC 13.6 10^3uL L=4.8 H=10.8 H RBC 3.78 10^6uL L=4.20 H=5.40 L HEMOGLOBIN 10.1 g/dL L=12.0 H=16.0 718-7 LOINC L HEMATOCRIT 32.3 VOL% L=37.0 H=47.0 4544-3 LOINC L MCV 85.4 fL L=81.0 H=99.0 MCH 26.7 pg L=27.0 H=32.0 L MCHC 31.3 g/dL L=32.0 H=36.0 L PLATELETS 309 10^3uL L=100 H=400 64997-5 LOINC RDW 13.5 % L=11.7 H=15.5 %GRAN 63.2 % L=40.0 H=70.0 36255-5 LOINC %LYMPH 20.2 % L=20.0 H=45.0 736-9 LOINC %MONO 12.1 % L=2.0 H=10.0 67396-3 LOINC H %EOS 2.0 % L=0.0 H=6.0 713-8 LOINC %BASO 0.2 % L=0.0 H=3.0 706-2 LOINC #NEUT 8.6 10^3uL L=1.9 H=7.6 08527-7 LOINC H #LYMPH 2.8 10^3uL L=0.9 H=4.9 03920-5 LOINC #MONO 1.6 10^3uL L=0.1 H=0.9 38121-9 LOINC H #EOS 0.3 10^3uL L=0.0 H=0.6 712-0 LOINC #BASO 0.03 10^3uL L=0.00 H=0.10 29820-9 LOINC #IM GRANS 0.3 10^3uL L=0.0 H=7.0 18387-1 LOINC %IM GRANS 2.3 % L=0.0 H=5.0 20161-9 LOINC %NRB 0.0 L=0.0 H=0.2 49593-7 LOINC #NRB 0.000 L=0.000 H=0.012 37338-0 LOINC MANUAL DIFF NOT INDICATED RBC MORPH NOT INDICATED COMPREHENSIVE METABOLIC PANE L - Collect Date/Time: 03/25/2024 00:13 [facility] ID: [id number] [place], [place], [id number] LOINC: 84396-7 Test Value Unit Reference Range Code Code [...] LOINC L ANION GAP 11 L=10 H=20 98560-4 LOINC OSMOLALITY 281 mOs/kG L=280 H=296 78326-1 LOINC BUN/CREAT 20.0 3097-3 LOINC CALCIUM 8.9 mg/dL L=8.3 H=10.5 69213-7 LOINC AST 31 U/L L=15 H=46 1920-8 LOINC ALT 25 U/L L=9 H=72 1742-6 LOINC ALKALINE PHOS 178 U/L L=38 H=126 6768-6 LOINC H TOTAL BILI 0.2 mg/dL L=0.2 H=1.3 1975-2 LOINC ALBUMIN 3.2 G/dL L=3.5 H=5.0 1751-7 LOINC L TOTAL PROTEIN 6.5 g/L L=6.3 H=8.2 2885-2 LOINC A/G RATIO 1.0 03620-0 LOINC AGE 24 47705-1 LOINC eGFR NON-AFR 160 ml/min eGFR AFR AMER 194 ml/min TROPONIN LEVEL - Collect Neil e/Time: 03/25/2024 00:13 [facility] ID: [id number] [address] [place] [address], [id number] LOINC: 67450-6 Test Value Unit Reference Range Code Code System Flag TROPONIN < 0.012 ng/mL L=0.000 H=0.033 35116-1 LOINC PROTIME - Collect Date/Time: 03/25/2024 00:13 [facility] ID: [id number] [address] [place] [address], [phone] LOINC: 44850-0 Test Value Unit Reference Range Code Code System Flag PT 9.6 Sec L=9.7 H=11.7 00226-1 LOINC L INR 0.9 Sec L=0.9 H=1.1 33061-8 LOINC PTT - Collect Date/Time: 00:13 [facility] ID: [id number] [address] [place] [address], [phone] LOINC: 55079-1 Test Value Unit Reference Range Code Code System Flag PTT 26.3 Sec L=23.0 H=31.2 Social History Type Status Start Date End Date Code Code Syst em Smoking History Never smoker (Never Smoked) 967451047 SNOMED CT Sex Female Assessment You had [...] 6002 SNOMED-CT UNSPECIFIED ABDOMINAL PAIN active 215 63088 SNOMED-CT Allergies and Adverse Reactions Allergy Substance Reaction Severity Start Date Concern Status Co de Code System AMOXICILLIN Active 723 RxNorm TERBUTALINE Active 15002 RxNorm Plan of Treatment Stress Test Treadmill 01/21/2025 Conservation Science Teacher Consult 04/27/2025 Encounters Encounter Diagnosis Start Date [...]
--- OUTSIDE RECORDS SUMMARY | 2025-10-27 11:27 | XMS_ITS ---
Author Organization Unknown Address [address] [place] [phone] Phone Care Team Providers Care Seeing Eye Dog Trainer Name Role Phone MARK Fernandez Attending Unavailable [...] if indicated - Collect Date/Time: 09/28/2023 07:50 [facility] ID: [id number] [place], [id number] LOINC: 88429-6 Test Value Unit Reference Range Code Code System Flag UR SOURCE UNKNOWN 13311-9 LOINC COLOR YELLOW YELLOW 5778-6 LOINC CLARITY SL CLOUDY CLEAR 20969-8 LOINC SPEC GRAVITY 1.020 1.000-1.030 5811-5 LOINC PH 7.0 5.0 - 6.5 5803-2 LOINC LEUK EST TRACE NEGATIVE 5799-2 LOINC A NITRATE NEGATIVE NEGATIVE PROTEIN NEGATIVE NEGATIVE 5804-0 LOINC GLUCOSE NEGATIVE NEGATIVE 87478-0 LOINC KETONES NEGATIVE NEGATIVE 00069-7 LOINC UROBILINOGEN 1.0 NEGATIVE 5818-0 LOINC BILIRUBIN NEGATIVE NEGATIVE 88540-0 LOINC BLOOD NEGATIVE NEGATIVE 17551-0 LOINC WBC 2-5 0 - 2 46669-4 LOINC RBC 0-2 0 - 2 63308-1 LOINC EPITHELIAL MODERATE RARE-FEW 51684-5 LOINC A ~ COMMENT Prob. contamination due to improper collec ~~ COMMENT RECOLLECT REQUESTED BACTERIA 2+ NONE SEEN 32216-2 LOINC A MUCUS 1+ NONE SEEN 8247-9 LOINC YEAST NOT PRESENT NOT PRESENT 07773-2 LOINC CASTS NONE SEEN 94109-4 LOINC CRYSTALS NONE SEEN 25143-7 LOINC CULTURE? NO 8251-1 LOINC DIAGNOSIS N/A BETA HCG-QUANT - Collect Neil e/Time: 09/28/2023 07:40 [facility] ID: [id number] [place], [place], [phone] LOINC: 49557-8 Test Value Unit Reference Range Code Code System Flag BETA HCG-QUANT 023600.00 mIU/mL L=0.00 H=6.00 90380-4 LOINC H Social History Type Status Start Date End Date Code Code Syst em Smoking History Never smoker (Never Smoked) 310556453 SNOMED CT Sex Female Assessment You had [...] 6002 SNOMED-CT UNSPECIFIED ABDOMINAL PAIN active 215 13068 SNOMED-CT Allergies and Adverse Reactions Allergy Substance Reaction Severity Start Date Concern Status Co de Code System AMOXICILLIN Active 723 RxNorm TERBUTALINE Active 75436 RxNorm Plan of Treatment Stress Test Treadmill 01/21/2025 [employer]ers Consult 04/27/2025 Encounters Encounter Diagnosis Start Date [...]
--- OUTSIDE RECORDS SUMMARY | 2025-10-27 11:27 | XMS_ITS ---
Author Organization Unknown Address [address] [place] [address] [phone] Phone Care Team Providers Care Potline Monitor Name Role Phone ANNABELLE GONZALEZ Attending Unavailable [...] em Smoking History Never smoker (Never Smoked) [id number] SNOMED CT Sex Female Assessment You had [...] 6002 SNOMED-CT UNSPECIFIED ABDOMINAL PAIN active 215 15513 SNOMED-CT Allergies and Adverse Reactions Allergy Substance Reaction Severity Start Date Concern Status Co de Code System AMOXICILLIN Active 723 RxNorm TERBUTALINE Active 43573 RxNorm Plan of Treatment Stress Test Treadmill 01/21/2025 Bobbin Cleaner Consult 04/27/2025 Encounters Encounter Diagnosis Start Date Code Code Sys tem Canceled operative procedure 07/23/2024 [id number] SNOMED-CT Personal Care Team Section Performer Name Performer Role Active Date Inactive Da te KRAIG ESTRADA PCP - Primary care physician 2021-10 0-24 2024-09-12 KRAIG ESTRADA PCP - Primary care physician 2023-0 1-10 2024-09-12 KRAIG ETSRADA PCP - Primary care physician 2023-0 1-10 2024-09-12 KRAIG ESTRADA PCP - Primary care physician 2023-0 7-16 2024-09-12 Hong Abdi PCP - Primary care physician 2024-09-12
--- OUTSIDE RECORDS SUMMARY | 2025-10-27 11:27 | XMS_ITS | Data Portability ---
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 She was referred by her house piping inspector, Manny. She is one month after delivering her fifth living child on September 04, 2025. She reports a history of anxiety that has worsened during and after her recent , now preventing her from going to public places and causing panic attacks. She carries an oximeter and wears a heart monitor for reassurance despite being told her heart is fine. She was previously prescribed sertraline (increased from 50mg to 100mg) but discontinued it due to feeling emotionally numb. She has alprazolam which she takes only as needed due to concerns about dependence. She reports no current medication adherence. The treatment plan discussed involved starting escitalopram (Lexapro) at 5mg daily, with plans to potentially add buspirone (BuSpar) at the next visit. The provider explained that starting with a low dose and adding medications sequentially would help identify which medication causes any benefits or side effects. Potential side effects were discussed, including headaches, gastrointestinal issues, dizziness, sexual side effects, and the possibility of temporary mood worsening. The importance of reporting any suicidal thoughts was emphasized. A follow-up appointment was scheduled in two weeks to assess response to escitalopram and consider adding buspirone to help with intrusive thoughts. Standardized Scales: PHQ9=2 GAD7=15 EPDS=10 Not available 10/19/2025 11:24:21 Plan of Treatment Reminders Order Date Submit Date Provider Last Modified By Organization Details Last Modified Time Details Appointments Psychiatr ic Follow up 2025 08:00A Shana Hull Not available Not available Not available Lab None recorded. Referral None recorded. Procedures None recorded. Surgeries None recorded. Imaging None recorded. Medication Orders Lexapro 5 mg tablet 2024 025 [facility] [id number] [place], [address], 10/19/2025 11:21:50 Patient TargetsNo targets recorded. Patient InstructionsNo instructions recorded. Reason for Referral None Reported. Problems Name Problem SNOMED Code Status Onset Date Resolution Date Notes Provider Name and Address Organization Details Recorded Time Nausea 683870101 [facility] 10:12:13 Hyperemesi s 032332436 Active Karina Burroughs [facility] 5 10:12:13 Past history of gestationa l diabetes mellitus 587799184 Active Karina Burroughs [facility] 5 10:12:13 hemorrhage 45106169 Active Karina Burroughs [facility] 5 10:12:13 Spinal muscular atrophy 3894619 [facility] 10:12:13 Anxiety in 215166926898 09 [facility] 10:12:13 Normal in multigravi da 104922668586 106 Active 2019 [facility] 10:12:13 Gestationa l diabetes mellitus 14306282 Active 2019 [facility] 10:12:13 Amenorrhea 31097222 Active 2020 [facility] 10:12:13 12187155 [facility] 10:12:13 Headache 72778381 Active 2023 Karina Burroughs [facility] 5 10:12:13 Nausea and vomiting 93834466 Active 2024 Karina Burroughs [facility] 5 10:12:13 Anxiety 07681794 Active 2024 Karina Burroughs [facility] 5 10:12:13 Uncomplica greg moderate persistent asthma 211515163 Active 2024 Karina Burroughs [facility] 5 10:12:13 anxiety Active 2024 Lucretia Hull CNM, [facility] [address], [place], [address], [facility] 11:20:12 Panic 19727027 Active 2024 Lucretia Hull CNM, [facility] [address], [place], [address], [facility] 11:22:29 Notes:Some problems listed i n Documents: #[id number], #[id number] could not be added to this patient's chart. Please review these documents and add these problems to the patient's chart manually as needed. Problem Notes None recorded. Procedures Surgical History Date Name Laterality Status Provider Name and Address Organization Details Recorded Time 09/06/20 25 Tubal Ligation completed Karinasofia Burroughs [facility] 10/19/2025 14:41:24 08/28/20 24 cholecystectomy completed Karinasofia Burroughs [facility] 10/19/2025 14:41:07 10/28/19 18 [facility] 17:15:39 Imaging Results None recorded. Procedure Notes None recorded. Medical Equipment None Reported. Allergies Allergen ID Allergen Name Allergen Category Reaction Reaction Severity Criticality Documentation Date Start Date Code Code System Note Provider Name and Address Organization Details Recorded Time 2463 terbutali ne medicatio n anaphylax is Not available Not available 05/11/20252021 98587 RxNorm Karina Burroughs [place], [place] - [facility] 10:12:10 3704 amoxicill in medicatio n Not available Not available Not available 10/18/2025 723 RxNorm Not Available gene - External Data Service - prod 10:58:11 3705 terbinafi ne medicatio n anaphylax is Not available [facility] 10/18/20252024 49897 RxNorm Not Available gene - External Data Service - prod 10:58:11 Medications Name Sig Start Date Stop Date Status Note LastModified by Organization Details LastModified Time nifedipine ER 30 mg tablet,exte nded release 24 hr TAKE 2 TABLETS BY MOUTH ONCE DAILY 10/19 completed Not Available Not Available Not Available methocarbam ol 500 mg tablet 01/14 completed Not Available Not Available Not Available buspirone 5 mg tablet TAKE 1 TABLET BY MOUTH THREE TIMES DAILY NEEDED FOR ANXIETY 01/27 completed Not Available Not Available Not Available terconazole 0.4 % vaginal cream INSERT 1 APPLICATO RFUL INTO VAGINA EVERY DAY FOR 7 DAYS. 09/14 completed Not Available Not Available Not Available doxycycline hyclate 100 mg capsule TAKE 1 CAPSULE BY MOUTH TWICE DAILY FOR 5 DAYS 10/19 completed Not Available Not Available Not Available ketoconazol e 2 % shampoo APPLY TOPICALLY TO SCALP THREE TIMES A WEEK FOR 3 WEEKS 01/14 completed Not Available Not Available Not Available clindamycin HCl 300 mg capsule TAKE 1 CAPSULE BY MOUTH THREE TIMES DAILY FOR 10 DAYS 10/19 completed Not Available Not Available Not Available cetirizine 10 mg tablet TAKE 1 TABLET BY MOUTH ONCE DAILY AT THE SAME TIME EACH DAY 01/14 completed Not Available Not Available Not Available azithromyci n 250 mg tablet TAKE 2 TABLETS BY MOUTH ON DAY 1, AND THEN TAKE 1 TABLET BY MOUTH ONCE A DAY ON DAY 2 THROUGH DAY 5 10/02 completed Not Available Not Available Not Available fluconazole 150 mg tablet TAKE 1 TABLET BY MOUTH NOW AND REPEAT DOSE IN 48 HOURS 04/16 completed Not Available Not Available Not Available hydrocodone 5 mg-acetamin ophen 325 mg tablet TAKE 1 TABLET BY MOUTH EVERY 6 HOURS 10/19 completed Not Available Not Available Not Available ondansetron HCl 2 mg/mL intravenous solution 05/08 completed Not Available Not Available Not Available ondansetron HCl 4 mg tablet TAKE 1 TABLET BY MOUTH EVERY 8 HOURS NEEDED 10/19 completed Not Available Not Available Not Available famotidine 40 mg tablet TAKE 1 TABLET BY MOUTH TWICE DAILY 10/19 completed Not Available Not Available Not Available prednisone 20 mg tablet TAKE 2 TABLETS BY MOUTH ONCE DAILY WITH FOOD AT THE SAME TIME EACH DAY FOR 5 DAYS. 01/14 completed Not Available Not Available Not Available ceftriaxone 250 mg solution for injection BRING TO OFFICE 11/03 completed Not Available Not Available Not Available sertraline 100 mg tablet TAKE 1 TABLET BY MOUTH ONCE DAILY 10/19 completed Not Available Not Available Not Available terconazole 0.8 % vaginal cream INSERT 1 APPLICATO RFUL VAGINALLY EVERY DAY FOR 3 DAYS 03/27 completed Not Available Not Available Not Available sumatriptan 50 mg tablet TAKE 1 TABLET BY MOUTH ONCE DAILY NEEDED (MAY REPEAT ONE TIME FOR MIGRAINE, MAXIMUM DAILY DOSE 200 MG/24 HOURS 10/19 completed Not Available Not Available Not Available penicillin V potassium 500 mg tablet TAKE 1 TABLET BY MOUTH 4 TIMES DAILY FOR 10 DAYS 10/02 completed Not Available Not Available Not Available hydralazine 25 mg tablet TAKE 1 TABLET BY MOUTH EVERY 6 HOURS NEEDED 10/19 completed Not Available Not Available Not Available metronidazo le 500 mg tablet TAKE 1 TABLET BY MOUTH EVERY 12 HOURS FOR 7 DAYS 04/16 completed Not Available Not Available Not Available sulfamethox azole 800 mg-trimetho prim 160 mg tablet TAKE 1 TABLET BY MOUTH TWICE DAILY FOR 7 DAYS 01/14 completed Not Available Not Available Not Available ondansetron 8 mg disintegrat ing tablet DISSOLVE ONE TABLET BY MOUTH 1 HOUR PRIOR TO TAKING METRONIDA ZOLE DIRECTED 07/05 completed Not Available Not Available Not Available dextrose 5 % and lactated ringers intravenous solution 09/14 completed Not Available Not Available Not Available lamotrigine 25 mg tablet TAKE 2 TABLETS BY MOUTH TWICE DAILY 10/19 completed Not Available Not Available Not Available nystatin-tr iamcinolone 100,000 unit/gram-0 .1 % topical ointment APPLY TOPICALLY TO THE AFFECTED AREA TWICE DAILY 02/06 completed Not Available Not Available Not Available alprazolam 0.5 mg tablet 01/14 completed Not Available Not Available Not Available propranolol 10 mg tablet TAKE 1 TABLET BY MOUTH TWICE DAILY 01/27 completed Not Available Not Available Not Available alprazolam 0.25 mg tablet TAKE 1 TABLET BY MOUTH THREE TIMES DAILY active Not Available Not Available No t Available famotidine 20 mg tablet TAKE 1 TABLET BY MOUTH TWICE DAILY FOR 10 DAYS 10/19 completed Not Available Not Available Not Available magnesium oxide 400 mg (241.3 mg magnesium) tablet TAKE 1 TABLET BY MOUTH ONCE DAILY 10/19 completed Not Available Not Available Not Available ondansetron HCl 4 mg/5 mL oral solution 10/19 completed Not Available Not Available Not Available amitriptyli ne 10 mg tablet TAKE 1 TABLET BY MOUTH ONCE DAILY AT BEDTIME 01/27 completed Not Available Not Available Not Available meclizine 25 mg tablet TAKE 1 TABLET BY MOUTH THREE TIMES DAILY NEEDED 01/27 completed Not Available Not Available Not Available doxycycline monohydrate 100 mg capsule TAKE 1 CAPSULE BY MOUTH TWICE DAILY FOR 5 DAYS 10/19 completed Not Available Not Available Not Available hydrocodone 7.5 mg-acetamin ophen 325 mg tablet TAKE 1 TABLET BY MOUTH 4 TIMES DAILY FOR PAIN 01/14 completed Not Available Not Available Not Available cephalexin 500 mg capsule TAKE 1 CAPSULE BY MOUTH TWICE DAILY FOR 7 DAYS 10/19 completed Not Available Not Available Not Available pantoprazol e 40 mg tablet,donavon yed release TAKE 1 TABLET BY MOUTH DAILY active Not Available Not Available No t Available oseltamivir 75 mg capsule TAKE 1 CAPSULE BY MOUTH TWICE DAILY FOR 5 DAYS 01/14 completed Not Available Not Available Not Available triamcinolo ne acetonide 0.1 % topical ointment APPLY THIN LAYER TOPICALLY TO THE AFFECTED AREA TWICE DAILY 02/06 completed Not Available Not Available Not Available nystatin 100,000 unit/gram topical cream APPLY TOPICALLY TO THE AFFECTED AREA TWICE DAILY 02/06 completed Not Available Not Available Not Available prednisone 50 mg tablet TAKE 1 TABLET BY MOUTH ONCE DAILY FOR 5 DAYS 10/19 completed Not Available Not Available Not Available promethazin e 25 mg tablet TAKE 1 TABLET BY MOUTH EVERY 4 HOURS 03/02 completed Not Available Not Available Not Available ursodiol 300 mg capsule TAKE 1 CAPSULE BY MOUTH TWICE DAILY 10/19 completed Not Available Not Available Not Available Humulin N NPH U-100 Insulin (isophane susp) 100 unit/mL subcutaneou s INJECT 3 UNITS SUBCUTANE OUSLY ONCE DAILY AT BEDTIME 10/19 completed Not Available Not Available Not Available ibuprofen 400 mg tablet TAKE 1 TABLET BY MOUTH EVERY 6 HOURS NEEDED FOR PAIN 01/14 completed Not Available Not Available Not Available fluoxetine 10 mg capsule TAKE 1 CAPSULE BY MOUTH ONCE DAILY 10/19 completed Not Available Not Available Not Available docusate sodium 100 mg capsule TAKE 1 CAPSULE BY MOUTH TWICE DAILY active Not Available Not Available No t Available sertraline 25 mg tablet 10/19 completed Not Available Not Available Not Available buspirone 7.5 mg tablet Take 1 tablet twice a day by oral route for 30 days. 07/05 completed Not Available Not Available Not Available hydroxyzine HCl 25 mg tablet TAKE 1/2 TO 1 (ONE-HALF TO ONE) TABLET BY MOUTH THREE TIMES DAILY FOR ANXIETY 01/14 completed Not Available Not Available Not Available mupirocin 2 % topical ointment APPLY OINTMENT TOPICALLY THREE TIMES DAILY FOR 7 DAYS 10/02 completed Not Available Not Available Not Available ergocalcife rol (vitamin D2) 1,250 mcg (50,000 unit) capsule TAKE 1 CAPSULE BY MOUTH ONCE A WEEK 01/27 completed Not Available Not Available Not Available Promethegan 25 mg rectal suppository UNWRAP AND INSERT 1 SUPPOSITO RY RECTALLY EVERY 6 TO 8 HOURS NEEDED 11/03 completed Not Available Not Available Not Available iFerex 150 150 mg iron capsule TAKE 1 CAPSULE BY MOUTH TWICE DAILY WITH MEALS active Not Available Not Available No t Available ibuprofen 600 mg tablet TAKE 1 TABLET BY MOUTH EVERY 6 HOURS NEEDED FOR PAIN 07/05 completed Not Available Not Available Not Available levofloxaci n 500 mg tablet Take 1 tablet every 24 hours by oral route for 14 days. 08/01 completed Not Available Not Available Not Available methylpredn isolone 4 mg tablets in a dose pack TAKE BY MOUTH DIRECTED ON INSIDE OF PACKAGE 01/14 completed Not Available Not Available Not Available albuterol sulfate HFA 90 mcg/actuati on aerosol inhaler INHALE 2 PUFFS BY MOUTH NEEDED FOR WHEEZING AND FOR SHORTNESS OF BREATH active Not Available Not Available No t Available ketoconazol e 2 % topical cream APPLY TOPICALLY TO THE AFFECTED AREA EVERY DAY 08/01 completed Not Available Not Available Not Available ondansetron 4 mg disintegrat ing tablet DISSOLVE 1 TABLET IN MOUTH EVERY 6 HOURS NEEDED 10/19 completed Not Available Not Available Not Available cefdinir 300 mg capsule TAKE 1 CAPSULE BY MOUTH EVERY 12 HOURS FOR 10 DAYS 07/05 completed Not Available Not Available Not Available fluticasone propionate 50 mcg/actuati on nasal spray,suspe nsion USE 1 SPRAY(S) IN EACH NOSTRIL TWICE DAILY NEEDED 01/14 completed Not Available Not Available Not Available sertraline 50 mg tablet TAKE 1 TABLET BY MOUTH ONCE DAILY 10/19 completed Not Available Not Available Not Available medroxyprog esterone 150 mg/mL intramuscul ar suspension ADMINISTE R 1 ML IN THE MUSCLE EVERY 3 MONTHS 08/01 completed Not Available Not Available Not Available doxycycline hyclate 100 mg tablet TAKE 1 TABLET BY MOUTH EVERY 12 HOURS FOR 10 DAYS 01/14 completed Not Available Not Available Not Available naproxen 500 mg tablet TAKE 1 TABLET BY MOUTH TWICE DAILY FOR 10 DAYS 01/14 completed Not Available Not Available Not Available Microlet Lancet USE TO CHECK BLOOD SUGAR FOUR TIMES DAILY 10/19 completed Not Available Not Available Not Available metoclopram jessi 10 mg tablet TAKE 1 TABLET BY MOUTH EVERY 8 HOURS NEEDED FOR NAUSEA OR VOMITING 09/14 completed Not Available Not Available Not Available amoxicillin 875 mg-potassiu m clavulanate 125 mg tablet 10/02 completed Not Available Not Available Not Available oxycodone 5 mg tablet TAKE 1 TABLET BY MOUTH EVERY 4 HOURS 03/27 completed Not Available Not Available Not Available hydroxyzine pamoate 25 mg capsule 01/14 completed Not Available Not Available Not Available Slow Release Iron 160 mg (50 mg iron) tablet,exte nded release Take 1 tablet every day by oral route. 01/03 completed Not Available Not Available Not Available escitalopra m 10 mg tablet Take 1 tablet every day by oral route. 09/14 completed Not Available Not Available Not Available cyclobenzap rine 5 mg tablet 01/14 completed Not Available Not Available Not Available ciprofloxac in 0.3 %-dexametha sone 0.1 % ear drops,suspe nsion INSTILL 3 DROPS INTO EACH EAR TWICE DAILY FOR 7 DAYS 10/02 completed Not Available Not Available Not Available Lexapro 5 mg tablet Take 1 tablet every day by oral route. 2024 active Not Available Not Available Not Avai lable nitrofurant oin monohydrate /macrocryst als 100 mg capsule TAKE 1 CAPSULE BY MOUTH EVERY 12 HOURS FOR 7 DAYS 10/19 completed Not Available Not Available Not Available Symbicort 80 mcg-4.5 mcg/actuati on HFA aerosol inhaler INHALE 2 PUFFS BY MOUTH TWICE DAILY active Not Available Not Available No t Available FeroSul 325 mg (65 mg iron) tablet TAKE 1 TABLET BY MOUTH ONCE DAILY active Not Available Not Available No t Available ferrous sulfate 15 mg iron (75 mg)/mL oral drops 07/05 completed Not Available Not Available Not Available Slow Fe 142 mg (45 mg iron) tablet,exte nded release Take 1 tablet every day by oral route. 01/03 completed Not Available Not Available Not Available Rochelle 30 mg tablet TAKE 1 TABLET BY MOUTH ONCE DAILY DIRECTED FOR 1 DAY 01/14 completed Not Available Not Available Not Available Nexplanon 68 mg subdermal implant Inject 1 implant by subcutane ous route. 01/14 completed Not Available Not Available Not Available 28 mg iron-800 mcg tablet 07/05 completed Not Available Not Available Not Available lidocaine 5 % topical ointment APPLY OINTMENT EXTERNALL Y TO RIBS THREE TIMES DAILY NEEDED 01/14 completed Not Available Not Available Not Available PARKING METER ATTENDANT-PNV-DHA 28 mg iron-1 mg-200 mg capsule Take 1 capsule every day by oral route as directed. 10/19 completed Not Available Not Available Not Available TRUEplus Insulin 0.5 mL 31 gauge x 5/16 syringe USE DIRECTED TO INJECT INSULIN 10/19 completed Not Available Not Available Not Available Fioricet 50 mg-300 mg-40 mg capsule Take 1 capsule every 4 hours by oral route. 03/31 completed Not Available Not Available Not Available Tums Freshers 200 mg (as calcium carbonate 500 mg) chewable tablet 500 mg by oral route. 10/19 completed Not Available Not Available Not Available potassium chloride ER 20 mEq tablet,exte nded release TAKE 1 TABLET BY MOUTH ONCE DAILY DIRECTED FOR 7 DAYS 10/19 completed Not Available Not Available Not Available Take Action 1.5 mg tablet TAKE 1 TABLET BY MOUTH ONCE DAILY 01/14 completed Not Available Not Available Not Available Zafemy 150 mcg-35 mcg/24 hr transdermal patch Apply 1 patch every week by transderm al route. 01/14 completed Not Available Not Available Not Available Contour Plus Test Strip USE TO CHECK BLOOD SUGAR FOUR TIMES DAILY 10/19 completed Not Available Not Available Not Available Contour Plus Blue Meter USE TO CHECK BLOOD SUGAR FOUR TIMES DAILY 10/19 completed Not Available Not Available Not Available Vitals Date Recorded Body height Body mass index (BMI) Body weight Heart rate Systolic And Diastolic Provider Name and Address Organization Details Last Updated DateTime 10/19/2025 163.83 cm 26.7 kg/m2 52023.59 g 82 /min 123/76 mm[Hg] Karina Burroughs [facility] 10:11:48 Social History Question Answer Notes LastModified by Likeeds Details LastModified Time Tobacco Smoking Status Former Smoker Karina Burroughs [facility] 10/19/2025 10:20:30 What Is Your Level Of Caffeine Consumption? Occasional [email or web address] Information not available 10/19/2025 Have You Ever Been Counseled For Unhealthy Alcohol Use? No [email or web address] Information not available 10/19/2025 Has Tobacco Cessation Counseling Been Provided? No [email or web address] Information not available 10/19/2025 Sex: Unknown Functional Status Question Answer Note LastModified by Likeeds Details LastModified Time Do you use any illicit or recreational drugs? No Information not available 10/19/2025 Do you or have you ever used any other forms of tobacco or nicotine? Yes Information not available 10/19/2025 What is your level of alcohol consumption? Occasional [email or web address] Information not available 10/19/2025 Do you or have you ever used e-cigarettes or vape? Former user of electronic cigarettes [email or web address] Information not available 10/19/2025 Mental Status Question Answer Note LastModified by Organization D etails LastModified Time Do you feel stressed (tense, restless, nervous, or anxious, or unable to sleep at night)? [id number] [email or web address] Information not available 10/19/2025 Family History Nothing Reported. Medical History Condition Response Allergies (Food, seasonal, environmental ) Y Other N Thyroid Disease N Breast Cancer N Blood Transfusion N Drug/Latex Allergies/Reactions Y Lung Disease N Depression Y COPD N Dermatologic Disorders N Defects or Inherited Disease N Developmental or Behavioral Disorders N Breast Problem N Gestational Diabetes Y Hematologic disorders N Anesthesia Complications N History of STI Y Deep Vein Thrombosis N Polycystic ovary syndrome N Anxiety Disorder Y Autoimmune disease N Vision or Eye Problems N Arthritis N Auditory Hallucinations N Polyps N Infertility N History of abnormal pap N Acid Reflux (GERD) N Cancer N Varicosities N Stroke N Neurologic/Epilepsy N Endometriosis N High Cholesterol N Liver Disease N Psychiatric/Mental Health Condition N Schizophrenia N Fibromyalgia N Headaches Y Kidney Disease N Heart Problems N Hospitalizations N Learning Disorder N Thyroid Problems N Kidney or Bladder Problems N GI Problems N Acne N ADD/ADHD N Eating Disorder N Anemia Y Brain Injury N Art (IVF or FET) N Psychiatric Illness N Ovarian Cancer N Diabetes Y Pulmonary (TB, Asthma) N Hepatitis/Liver Disease N Visual Hallucinations N Seizures/Epilepsy N AIDS/HIV N Amnesia N Eczema N Abuse/Domestic Violence N Asthma Y Trauma/Violence N GERD/Reflux Y Depression/ depression Y Heart Disease N Tourette Syndrome N Pre-Eclampsia N Hypertension Y Osteoporosis N Thrombophilias N Gynecological History Statement/Question Response Date of LMP 12/11/2024 STIs/STDs Y Date of Last Pap Smear Current Control Method Tubal Ligat ion Most Recent Mammogram LMP Approximate Obstetrics History GPAL:G 6 P 5 0 1 5 Type Value Full Term 5 Spontaneous 1 Living 5 Total 6 Past Encounters Encounter ID Performer Location Encounter Start Date Encounter Closed Date Diagnosis/Indication Diagnosis SNOMED-CT Code Diagnosis ICD10 Code Diagnosis IMO Codes Diagnosis Note [id number] Lucretia Hull, KRISTEN, PMHNP-BC [facility] [address] [place] [id number] 10/19/2025 10:01:36 10/25/2025 12:26:19 anxiety [id number] [id number] O99.345 F41.8 [id number] Yuni presents with severe anxiety, particular ly focused on health concerns. She reports constant worry about dying or having a heart attack despite medical reassuranc e that her heart is fine. She carries an oximeter and wears a heart monitor for reassuranc e. Her anxiety has been present for years but worsened during and after her recent . I discussed the nature of anxiety disorders, including how health anxiety can manifest and be perpetuate d by reassuranc e-seeking behaviors. Start escitalopr am (Lexapro) 5mg daily in the morning (lower than standard starting dose of 10mg)Discu ssed potential side effects including headaches, GI disturbanc es, dizziness, sexual side effects, and possible initial worsening of moodEmphas ized importance of reporting any suicidal thoughts if they occurPlan to consider adding buspirone (BuSpar) at next visit to help with intrusive thoughtsFo llow up in two weeks to assess response and consider medication adjustment s Patient is one month after delivering her fifth living child. Her anxiety symptoms have worsened during and after . I discussed how hormonal changes during the period can impact anxiety symptoms and the importance of treatment during this vulnerable time.Monit or for any signs of depression in addition to anxietyEns ure adequate support system is in placeFollo w up in two weeks to reassess adjustment Panic [id number] F41.0 [id number] Yuni reports panic attacks and inability to go to public places like stores or malls. She experience s chest pain, shortness of breath, and immediate panic in public settings. This has significan tly impaired her functionin g, including her ability to work. I discussed the relationsh ip between anxiety, panic attacks, and avoidance behaviors, and how treatment can help break this cycle.Star t escitalopr am as noted above, which should also help with panic symptomsDi scussed how medication can help reduce frequency and intensity of panic attacksPla n to address agoraphobi c avoidance more specifical ly once initial anxiety symptoms are better controlled Follow up in two weeks to assess impact on panic symptoms Health Concerns Section Related Observation LastModified by Organization Detai ls LastModified Time None Recorded Concern Status LastModified by Organization Details LastModified Time None Recorded Advance Directives Directive None Recorded Payers Insurance Date Sequence Insurance Name Policy Number Policy Roberts Covered Member ID Roberts Member ID Guarantor Name 10/25/2025 1 [facility] (MEDICAID HMO) [id number] Yuni Mejia [id number] Yuni Mejia Notes Date Note Type Note Provider Name and Address Organization Details Recorded Time 10/19/2025 text/html History of present illness Yuni Mejia is a 25-year-old female who presents today for her initial psychiatric evaluation upon referral from Manny, her house piping inspector. She is engaged and lives with her Sandip yoder, and her five children. She recently gave to her youngest child, a daughter named Mina, on September 04, 2025 (approximately one month ago). She has five living children aged one month, one year, three years, five years, and seven years. She also experienced a miscarriage in 2018. She reports suffering from severe anxiety, particularly health anxiety. She states, I have really bad health anxiety and is constantly concerned about her health, often thinking she's going to or have a heart attack. She carries an oximeter with her at all times and is currently wearing a heart monitor prescribed by a senior investment analyst who told her that her heart was fine but allowed her to wear the monitor if it made her feel safer. She reports that her anxiety has been present for years but worsened during and after her recent . Her anxiety has progressed to the point where she can no longer go to public places like stores or malls. She states, I can't even go into [employer] anymore without having an instant panic. She describes experiencing chest pain, shortness of breath, and panic attacks. She reports that she isolates herself when family comes over, often sitting in her room away from everyone because being around too many people triggers her anxiety. She states that she wants help because she can't control it no more and wants to get back to my normal self. She does not currently work due to her anxiety. Her support system consists primarily of her fianc Renaldoy. Past Medical History Illness, Injuries, Operations, and Treatment: Not provided Previous Psychiatric or Mental Health Treatment: Not provided Previous Psychiatric or Mental Health Hospitalization: She reports being hospitalized at age 14 at a facility she believes was in [place] (possibly [facility]). She states her mother placed her there for behavioral issues, though she doesn't remember specific details. Medication History 1. Sertraline (Zoloft): Dosage: Initially 50 mg, later increased to 100 mg Duration: Unknown Effectiveness: Patient reports it didn't help her Reason for Discontinuation: She reports feeling numb to where I couldn't feel emotions and that it started making me feel a little funny Current status: Discontinued 2. Alprazolam: Dosage: Unknown Duration: Unknown Effectiveness: Unknown Reason for Discontinuation: Patient reports she still has the prescription and will take it if needed but doesn't want to take it daily due to its habit-forming nature Current status: Takes as needed only Lucretia Hull, CNShana, PMHNP- [address], [place], [address], [facility] 10/19/2025 11:25:51 OBGyn Episode Ob Episode Information Episode Created Date Number of Fetuses Patient Bloodtype Patient rh Status Prepregnancy Weight lbs Domestic Partner Domestic Partner Phone Father Name Laser Beam Cutter Status 10/19/20 25 1 CLOSED Fetus Data First Name Last Name Admitted to NICU Weight (g) Sex Living Outcome Pediatric Complications Fetus ID Race Codes Race Delivery Type F Full Term 1781 Jun Calculation Initial Jun Date Initial Exam [...] Complications Tubal Sterilization Discharge Date Comments 0 vaginal delivery Discharge Information Feeding Method Contraceptive Method Maternal HG B and HCT Levels Ob Episode Information Episode Created Date Number of Fetuses Patient Bloodtype Patient rh Status Prepregnancy Weight lbs Domestic Partner Domestic Partner Phone Father Name Laser Beam Cutter Status 10/19/20 25 1 CLOSED Fetus Data First Name Last Name Admitted to NICU Weight (g) Sex Living Outcome Pediatric Complications Fetus ID Race Codes Race Delivery Type F Full Term 1783 Jun Calculation Initial Jun Date Initial Exam [...] Complications Tubal Sterilization Discharge Date Comments 8 vaginal delivery Discharge Information Feeding Method Contraceptive Method Maternal HG B and HCT Levels Ob Episode Information Episode Created Date Number of Fetuses Patient Bloodtype Patient rh Status Prepregnancy Weight lbs Domestic Partner Domestic Partner Phone Father Name Laser Beam Cutter Status 10/19/20 25 1 CLOSED Fetus Data First Name Last Name Admitted to NICU Weight (g) Sex Living Outcome Pediatric Complications Fetus ID Race Codes Race Delivery Type F Full Term 1784 Jun Calculation Initial Jun Date Initial Exam [...] Complications Tubal Sterilization Discharge Date Comments 5 vaginal delivery Discharge Information Feeding Method Contraceptive Method Maternal HG B and HCT Levels Ob Episode Information Episode Created Date Number of Fetuses Patient Bloodtype Patient rh Status Prepregnancy Weight lbs Domestic Partner Domestic Partner Phone Father Name Laser Beam Cutter Status 10/19/20 25 1 CLOSED Fetus Data First Name Last Name Admitted to NICU Weight (g) Sex Living Outcome Pediatric Complications Fetus ID Race Codes Race Delivery Type M Full Term 1782 Jun Calculation Initial Jun Date Initial Exam [...] Complications Tubal Sterilization Discharge Date Comments 2 vaginal delivery Discharge Information Feeding Method Contraceptive Method Maternal HG B and HCT Levels Ob Episode Information Episode Created Date Number of Fetuses Patient Bloodtype Patient rh Status Prepregnancy Weight lbs Domestic Partner Domestic Partner Phone Father Name Laser Beam Cutter Status 05/11/20 25 1 CLOSED Fetus Data First Name Last Name Admitted to NICU Weight (g) Sex Living Outcome Pediatric Complications Fetus ID Race Codes Race Delivery Type , Spontane ous 214 Jun Calculation Initial Jun Date Initial Exam [...] Complications Tubal Sterilization Discharge Date Comments 8 Discharge Information Feeding Method Contraceptive Method Maternal HG B and HCT Levels
--- OUTSIDE RECORDS SUMMARY | 2025-10-27 11:27 | XMS_ITS | Encounter Summary ---
Author Organization [facility] Address [address] [place] [address] Care Team Providers Care Soyfreeze Operator Name Role Phone Tanner Paige MD Primary Care Provider [phone] Janell Celaya APNP Unavailable Tara Miranda ANP-BC Unavailable + Roseanne Roper RIGGING SUPERVISOR-C Unavailable [phone] Encounter Details Date Type Department Care Team (Latest Contact Info) Description 10/26/2025 Travel Social History Tobacco Use Types Packs/Day [...] Recorded Patient Health Questionnaire-2 Score 0 05/13/2024 [facility] - Occupational Stress Questionnaire Answer Date Recorded [...] often do you attend chur ch or mandaeism services? 1 to 4 times per year 08/29/2025 Do you belong to any clubs o r organizations such as sabianism groups, unions, fraternal or athletic groups, or [...] and heating? Not hard at all 08/29/2025 [facility] - [...] any time in the past 12 m [facility], were you homeless or living in a correction (including now)? No 08/29/2025 B1300 Health Literacy Answer Date Recor ded How often do you need to hav e someone help you when you read instructions, pamphlets, or other written material from your doctor or pharmacy? Never 08/29/2025 [facility] Utilities Answer Date Recorded In the [...] Author Status No 05/13/2024 1:23 AM CDT Schieffer, Mariama E, RN Active documented in this encounter Plan of Treatment Upcoming Encounters Date Type Department Care Team (Late st Contact Info) Description 11/01/2025 1:00 PM ENGRAVER RUBBER Telephone [facility] d [address] [place] [phone] Roseanne Roper RIGGING SUPERVISOR-C [address] [place] [address] 11/04/2025 12:30 PM ENGRAVER RUBBER Office Visit [facility] [address] [place] [phone] Tara Miranda ANP-BC [address] [place] [address] 11/05/2025 6:00 AM ENGRAVER RUBBER [facility] [address] [place] [address] Roseanne Roper RIGGING SUPERVISOR-C [address] [place] [address] documented as of this encounter Visit Diagnoses Not on filedocumented in this encounter Care Teams Soyfreeze Operator Relationship Specialty Start Date End Date Tanner Paige MD [address] [place] [phone] PCP - General FAMILY PRACTICE 07/01/24 [place] [phone] NURSE PRACTITIONER 12/01/24 Tara Miranda, ANP-BC [address] [place] [address] Nurse Practitioner NURSE PRACTITIONER ADULT HEALTH 10/08/25 Roseanne Roper RIGGING SUPERVISOR-[place] [place] [address] Nurse Practitioner Family 10/25/25 documented as of this encounter
--- OUTSIDE RECORDS SUMMARY | 2025-10-27 11:27 | XMS_ITS | Clinical Summary ---
Author Organization [facility] Address [address] [place] [address] Care Team Providers Care Intelligence Clerk Name Role Phone Tammi Menon DOREEN Primary [...] have care with Dr. Ortega Denson in [place], [place]. Assessment & Plan (07/04/2019 7:48 PM CDT): - no plans to initiate care [place] - gave Rx for doxylamine/pyridoxine for nausea - encouraged smoking cessation; recommended she d/w Dr. Addison Denson when she establishes care Abdominal pain in 07/04/2019 Overview (07/04/2019): 07/04/2019: presented to [facility], r/o for acute process. Transfer to [facility] for dating confirmation. Reports no BM [...] on file Legal Sex Female 11:55 PM SINGING TEACHER Gender Identity Not on file Sexual [...] Comments Blood Pressure 101/69 12/31/2024 5:25 PM SINGING TEACHER Pulse 77 12/31/2024 5:25 PM SINGING TEACHER Temperature 37.1 C (98.7 F) 12/31/2024 2:09 PM SINGING TEACHER Respiratory Rate 18 12/31/2024 5:25 PM SINGING TEACHER Oxygen Saturation 100% 12/31/2024 5:25 PM SINGING TEACHER Inhaled Oxygen Concentration - - Weight 72.7 kg (160 lb 4.4 oz) 12/31/2024 2:09 P M SINGING TEACHER Height 165.1 cm (5' 5) 12/31/2024 2:09 PM SINGING TEACHER Body Mass Index 26.67 12/31/2024 2:09 PM SINGING TEACHER Plan of Treatment Health Maintenance Due [...] [facility] Care Teams Intelligence Clerk Relationship Specialty Start Date End Date Tammi Menon LauraDOREEN [address] Pediatric Emerg. Dept. [place] [id number] PCP - General Family Medicine 12/31/24
--- OUTSIDE RECORDS SUMMARY | 2025-10-27 11:27 | XMS_ITS | Encounter Summary ---
Author Organization [facility] Healthcare Address [address] [place] [address] Care Team Providers Care Cafeteria Cashier Name Role Phone Kera Flanagan NP Primary Care Provider [phone] Tammi Menon APRN Primary Care Provider Encounter Details Date Type Department Care Team (Late st Contact Info) Description 10/25/2023 Orders Only [facility] Home Care Services [address] [place] [address] Carli Whitaker, [facility] Social History Tobacco Use Types Packs/Day [...] on file Legal Sex Female 11:55 PM GROUP EXERCISE INSTRUCTOR Gender Identity Not on file Sexual Orientation Not on file documented as of this encounter Plan of Treatment Not on file documented as of this encounter Visit Diagnoses Not on filedocumented in this encounter Additional Health Concerns Infection Onset Date Last Indicated Resolved Time COVID: Suspected 12/31/2024 12/31/2024 12/31/2024 3:10 PM GROUP EXERCISE INSTRUCTOR documented as of this encounter Care Teams Cafeteria Cashier Relationship Specialty Start Date End Date Kera Flanagan, [place] PCP - General 05/30/22 12/30/24 Tammi Menon APRN [address] [place] [address] PCP - General Family Medicine 12/31/24 documented as of this encounter
--- OUTSIDE RECORDS SUMMARY | 2025-10-27 11:27 | XMS_ITS ---
Author Organization Unknown Address [address] [place] [phone] Phone Care Team Providers Care Tube Sizer And Cutter Operator Name Role Phone ANNABELLE GONZALEZ Attending Unavailable [...] PCR - Colle ct Date/Time: 06/14/2024 00:01 [facility] ID: [id number] [address] [place], [place], [phone] LOINC: 22186-8 Test Value Unit Reference Range Code Code System Flag GRP A STREP PCR NEGATIVE NORMAL: NEGATIVE RESPIRATORY PATHOGEN PANEL + SARS PCR - Collect Date/Time: 06/14/2024 00:01 [facility] ID: [id number] [address] [place], [place], [phone] LOINC: 33475-3 Test Value Unit Reference Range Code Code System Flag ADENOVIRUS NOT DETECTED NORMAL: NOT DETECTED 5778-6 LOINC CORONAVIRUS 229E NOT DETECTED NORMAL: NOT DETECTED 5778-6 LOINC CORONAVIRUS HKU1 NOT DETECTED NORMAL: NOT DETECTED 5778-6 LOINC CORONAVIRUS NL63 NOT DETECTED NORMAL: NOT DETECTED 5778-6 LOINC CORONAVIRUS OC43 NOT DETECTED NORMAL: NOT DETECTED 5778-6 LOINC CORONAVIRUS COVID-19 NOT DETECTED NORMAL: NOT DETECTED 53552-1 LOINC H METAPNEUMOVIRUS NOT DETECTED NORMAL: NO [...] NORMAL: NOT DETECTED 5778-6 LOINC SEND TO [facility]? NO CHEST 2V - Completed: 2023 [...] Banks M.D., D.O. MW: SOLA Report ID: [id number] Reading Location: [place] [address] Social History Type Status Start Date End Date Code Code Syst em Smoking History Never smoker (Never Smoked) 348097479 SNOMED CT Sex Female Assessment You had [...] 6002 SNOMED-CT UNSPECIFIED ABDOMINAL PAIN active 215 55735 SNOMED-CT Allergies and Adverse Reactions Allergy Substance Reaction Severity Start Date Concern Status Co de Code System AMOXICILLIN Active 723 RxNorm TERBUTALINE Active 46656 RxNorm Plan of Treatment Stress Test Treadmill 01/21/2025 Library Media Technician Consult 04/27/2025 Encounters Encounter Diagnosis Start [...]
--- OUTSIDE RECORDS SUMMARY | 2025-10-27 11:27 | XMS_ITS ---
Author Organization Unknown Address [address] [place] [phone] Phone Care Team Providers Care Duct Layer Helper Name Role Phone ANNABELLE GONZALEZ Attending Unavailable [...] DIFF - Collect Date/T randall: 06/25/2024 08:22 [facility] ID: [id number] [address] [place], [place], [phone] LOINC: 71536-8 Test Value Unit Reference Range Code Code System Flag WBC 14.4 10^3uL L=4.8 H=10.8 H RBC 4.94 10^6uL L=4.20 H=5.40 HEMOGLOBIN 12.8 g/dL L=12.0 H=16.0 718-7 LOINC HEMATOCRIT 40.8 VOL% L=37.0 H=47.0 4544-3 LOINC MCV 82.6 fL L=81.0 H=99.0 MCH 25.9 pg L=27.0 H=32.0 L MCHC 31.4 g/dL L=32.0 H=36.0 L PLATELETS 329 10^3uL L=100 H=400 48560-5 LOINC RDW 14.0 % L=11.7 H=15.5 %GRAN 75.9 % L=40.0 H=70.0 86507-2 LOINC H %LYMPH 14.7 % L=20.0 H=45.0 736-9 LOINC L %MONO 8.6 % L=2.0 H=10.0 72169-2 LOINC %EOS 0.1 % L=0.0 H=6.0 713-8 LOINC %BASO 0.1 % L=0.0 H=3.0 706-2 LOINC #NEUT 10.9 10^3uL L=1.9 H=7.6 77773-2 LOINC H #LYMPH 2.1 10^3uL L=0.9 H=4.9 08425-5 LOINC #MONO 1.2 10^3uL L=0.1 H=0.9 26286-8 LOINC H #EOS 0.0 10^3uL L=0.0 H=0.6 712-0 LOINC #BASO 0.02 10^3uL L=0.00 H=0.10 41005-4 LOINC #IM GRANS 0.1 10^3uL L=0.0 H=7.0 77048-3 LOINC %IM GRANS 0.6 % L=0.0 H=5.0 42418-6 LOINC %NRB 0.0 L=0.0 H=0.2 85625-2 LOINC #NRB 0.000 L=0.000 H=0.012 55509-6 LOINC MANUAL DIFF NOT INDICATED RBC MORPH NOT INDICATED COMPREHENSIVE METABOLIC PANE L - Collect Date/Time: 06/25/2024 08:22 [facility] ID: [id number] [address] [place], [place], [phone] LOINC: 18228-1 Test Value Unit Reference Range Code Code [...] 2028-9 LOINC ANION GAP 14 L=10 H=20 28757-3 LOINC OSMOLALITY 289 mOs/kG L=280 H=296 12376-6 LOINC BUN/CREAT 20.0 3097-3 LOINC CALCIUM 9.4 mg/dL L=8.3 H=10.5 10152-7 LOINC AST 24 U/L L=15 H=46 1920-8 LOINC ALT 21 U/L L=9 H=72 1742-6 LOINC ALKALINE PHOS 87 U/L L=38 H=126 6768-6 LOINC TOTAL BILI 0.4 mg/dL L=0.2 H=1.3 1975-2 LOINC ALBUMIN 4.5 G/dL L=3.5 H=5.0 1751-7 LOINC TOTAL PROTEIN 7.8 g/L L=6.3 H=8.2 2885-2 LOINC A/G RATIO 1.4 04933-7 LOINC AGE 24 67785-4 LOINC eGFR NON-AFR 108 ml/min eGFR AFR AMER 131 ml/min TROPONIN LEVEL - Collect Neil e/Time: 06/25/2024 08:22 [facility] ID: [id number] [address] [place] [address], [id number] LOINC: 93316-4 Test Value Unit Reference Range Code Code System Flag TROPONIN < 0.012 ng/mL L=0.000 H=0.033 85431-5 LOINC RESPIRATORY PATHOGEN PANEL + SARS PCR - Collect Date/Time: 06/25/2024 08:17 [facility] ID: [id number] [address] [place] [address], [id number] LOINC: 96717-2 Test Value Unit Reference Range Code Code System Flag ADENOVIRUS NOT DETECTED NORMAL: NOT DETECTED 5778-6 LOINC CORONAVIRUS 229E NOT DETECTED NORMAL: NOT DETECTED 5778-6 LOINC CORONAVIRUS HKU1 NOT DETECTED NORMAL: NOT DETECTED 5778-6 LOINC CORONAVIRUS NL63 NOT DETECTED NORMAL: NOT DETECTED 5778-6 LOINC CORONAVIRUS OC43 NOT DETECTED NORMAL: NOT DETECTED 5778-6 [facility] CORONAVIRUS COVID-19 NOT DETECTED NORMAL: NOT DETECTED 29543-8 LOINC H METAPNEUMOVIRUS NOT DETECTED NORMAL: NO [...] NORMAL: NOT DETECTED 5778-6 LOINC SEND TO [facility]? YES GROUP A STREP BY PCR - Colle ct Date/Time: 06/25/2024 08:17 [facility] ID: [id number] [address] [place], [place], [id number] LOINC: 51082-6 Test Value Unit Reference Range Code Code [...] David Wolf M.D. AM: AM Report ID: [id number] Reading Location: [id number] Social History Type Status Start Date End Date Code Code Syst em Smoking History Never smoker (Never Smoked) 305764685 SNOMED CT Sex Female Assessment You had [...] 6002 SNOMED-CT UNSPECIFIED ABDOMINAL PAIN active 215 50226 SNOMED-CT Allergies and Adverse Reactions Allergy Substance Reaction Severity Start Date Concern Status Co de Code System AMOXICILLIN Active 723 RxNorm TERBUTALINE Active 48426 RxNorm Plan of Treatment Stress Test Treadmill 01/21/2025 Anvil Seating Press Operator Consult 04/27/2025 Encounters Encounter Diagnosis Start [...]
--- OUTSIDE RECORDS SUMMARY | 2025-10-27 11:28 | XMS_ITS ---
Author Organization Unknown Address [address] [place] [phone] Phone Care Team Providers Care Scrub Technician Name Role Phone MARK Fernandez Attending Unavailable [...] D DIMER - Collect Date/Time: 06/08/2024 09:45 [facility] ID: [id number] [address] [place], [place], [phone] LOINC: Test Value Unit Reference Range Code Code System Flag DDIMER 0.35 mg/L FEU L=0.00 H=0.50 Social History Type Status Start Date End Date Code Code Syst em Smoking History Never smoker (Never Smoked) 446223789 SNOMED CT Sex Female Assessment You had [...] 6002 SNOMED-CT UNSPECIFIED ABDOMINAL PAIN active 215 99880 SNOMED-CT Allergies and Adverse Reactions Allergy Substance Reaction Severity Start Date Concern Status Co de Code System AMOXICILLIN Active 723 RxNorm TERBUTALINE Active 02039 RxNorm Plan of Treatment Stress Test Treadmill 01/21/2025 Castings Trimmer Consult 04/27/2025 Encounters Encounter Diagnosis Start Date [...]
--- OUTSIDE RECORDS SUMMARY | 2025-10-27 11:28 | XMS_ITS | Continuity of Care Document ---
Author Organization [facility], [facility] Address [address] [place] [address] Care Team Providers Care Armament Mechanic Name Role Phone AMALIA ESTRADA Primary Care Provider MANNY MCKINLEY Referring Provider [phone] Assessment Encounter Date Assessment Date Assessment LastModified by Organization Details LastModified Time 10/19/2025 10/19/2025 Labs and Imaging Visit Summary A 25-year-old female with severe anxiety, particularly health anxiety, presented for initial psychiatric evaluation. She was referred by her counter supervisor, Manny. She is one month after delivering [...] intrusive thoughts. Standardized Scales: PHQ9=2 GAD7=15 EPDS=10 [email or web address] Not available 10/19/2025 11:24:21 Plan of Treatment Reminders Order Date Submit Date Provider Last Modified By Organization Details Last Modified Time Details Appointments Psychiatr ic Follow up 2025 08:00A Shana Hull Not available Not available Not available Lab None recorded. Referral None recorded. Procedures None recorded. Surgeries None recorded. Imaging None recorded. Medication Orders Lexapro 5 mg tablet 2024 025 [facility] [place], [address], 10/19/2025 11:21:50 Patient TargetsNo targets recorded. Patient InstructionsNo instructions recorded. Reason for Referral None Reported. Problems Name Problem SNOMED Code Status Onset Date Resolution Date Notes Provider Name and Address Organization Details Recorded Time Nausea 530939338 Active Karina Burroughs [facility] 5 10:12:13 Hyperemesi s 286566879 Active Karina Burroughs [facility] 5 10:12:13 Past history of gestationa l diabetes mellitus 383307520 Active Karina Burroughs [facility] 5 10:12:13 hemorrhage 74880492 Active Karina Burroughs [facility] 5 10:12:13 Spinal muscular atrophy 9020955 Active Karina Burroughs [facility] 5 10:12:13 Anxiety in 231537178982 09 Active Karina Burroughs [facility] 5 10:12:13 Normal in multigravi da 496103549384 106 [facility] 10:12:13 Gestationa l diabetes mellitus 66920364 Active 2019 [facility] 10:12:13 Amenorrhea 29219336 Active 2020 [facility] 10:12:13 46744071 Active 2020 [facility] 10:12:13 Headache 44759786 Active 2023 [facility] 10:12:13 Nausea and vomiting 76784394 Active 2024 Karina Burroughs [facility] 5 10:12:13 Anxiety 91377747 Active 2024 Karina Burroughs [facility] 5 10:12:13 Uncomplica greg moderate persistent asthma 084226867 Active 2024 Karina Burroughs [facility] 10:12:13 anxiety Active 2024 Lucretia Hull CNM, [facility]- [address], [place], [address], [facility] 11:20:12 Panic 31066626 Active 2024 Lucretia Hull CNM, [facility]- [address], [place], [address], [facility] 11:22:29 Notes:Some problems listed i n Documents: #[id number], #[id number] could not be added to this patient's chart. Please review these documents and add these problems to the patient's chart manually as needed. Problem Notes None recorded. Procedures Surgical History Date Name Laterality Status Provider Name and Address Organization Details Recorded Time 09/06/20 25 Tubal Ligation completed Karinasofia Burroughs [facility] 10/19/2025 14:41:24 08/28/20 24 [facility] 14:41:07 10/28/19 18 [facility]tt[facility]/11[facility] 17:15:39 Imaging Results None recorded. Procedure Notes None recorded. Medical Equipment None Reported. Allergies Allergen ID Allergen Name Allergen Category Reaction Reaction Severity Criticality Documentation Date Start Date Code Code System Note Provider Name and Address Organization Details Recorded Time 2463 terbutali ne medicatio n anaphylax is Not available Not available 05/11/20252021 33545 RxNorm Karina Burroughs [facility] 10:12:10 3704 amoxicill in medicatio n Not available Not available Not available 10/18/2025 723 RxNorm Not Available gene - External Data Service - prod 10:58:11 3705 terbinafi ne medicatio n anaphylax is Not available [facility] 10/18/20252024 90631 RxNorm Not Available gene - External Data [...] completed Not Available Not Available Not Available PLUG CUTTING MACHINE OPERATOR-PNV-DHA 28 mg iron-1 mg-200 mg capsule Take [...] Updated DateTime 10/19/2025 163.83 cm 26.7 kg/m2 28236.59 g 82 /min 123/76 mm[Hg] Karina Burroughs [facility] 10:11:48 Social History Question Answer Notes LastModified by Blogvio Details LastModified Time Tobacco Smoking Status Former Smoker Karina Burroughs [facility] 10/19/2025 10:20:30 What Is Your Level Of Caffeine Consumption? Occasional [email or web address] Information not available 10/19/2025 Have You Ever Been Counseled For Unhealthy Alcohol Use? No [email or web address] Information not available 10/19/2025 Has Tobacco Cessation Counseling Been Provided? No [email or web address] Information not available 10/19/2025 Sex: Unknown Functional Status Question Answer Note LastModified by Blogvio Details LastModified Time Do you use any illicit or recreational drugs? No [email or web address] Information not available 10/19/2025 Do you or have you ever used any other forms of tobacco or nicotine? Yes [email or web address] Information not available 10/19/2025 What is your level of alcohol consumption? Occasional [email or web address] Information not available 10/19/2025 Do you or have you ever used e-cigarettes or vape? Former user of electronic cigarettes Information not available 10/19/2025 Mental Status Question Answer Note LastModified by Organization D etails LastModified Time Do you feel stressed (tense, restless, nervous, or anxious, or unable to sleep at night)? [id number] [email or web address] Information not available 10/19/2025 Family History Nothing Reported. Medical History Condition Response Allergies (Food, seasonal, environmental ) Y Other N Thyroid Disease N Blood Transfusion N Breast Cancer N Drug/Latex Allergies/Reactions Y Lung Disease N COPD N Depression Y Dermatologic Disorders N Defects or Inherited [...] Disease N Visual Hallucinations N Seizures/Epilepsy N Amnesia N AIDS/HIV N Eczema N Abuse/Domestic Violence N Asthma [...] IMO Codes Diagnosis Note 9772 Lucretia Hull, CNM, PMHNP-BC [facility] [address] [place] [address] 10/19/2025 10:01:36 10/25/2025 12:26:19 anxiety 5142252897 [id number] O99.345 F41.8 [id number] Yuni presents with severe anxiety, particular ly [...] in two weeks to reassess adjustment Panic 56880384 F41.0 51221 Yuni reports panic attacks and inability to [...] Member ID Roberts Member ID Guarantor Name 10/19/2025 1 [facility] (MEDICAID HMO) [id number] Yuni Mejia [id number] Yuni Mejia Notes Date Note Type Note Provider Name and Address Organization Details Recorded Time 10/19/2025 text/html History of present illness Yuni Mejia is a 25-year-old female who presents today for her initial psychiatric evaluation upon referral from Manny, her counter supervisor. She is engaged and lives with her beba Sandip, and her five children. She recently gave [...] wearing a heart monitor prescribed by a colored liquid plastic applier who told her that her heart was [...] Her support system consists primarily of her Sandip yoder. Past Medical History Illness, Injuries, Operations, and Treatment: Not provided Previous Psychiatric or Mental Health Treatment: Not provided Previous Psychiatric or Mental Health Hospitalization: She reports being hospitalized at age 14 at a facility she believes was in [place] (possibly [facility]). She states her mother placed her there [...] status: Takes as needed only Lucretia Hull, KRISTEN, PMHNP-BC [address], [place], [address], [facility] 10/19/2025 11:25:51 OBGyn Episode No OBEpisode recorded.
--- OUTSIDE RECORDS SUMMARY | 2025-10-27 11:29 | XMS_ITS ---
Author Organization Unknown Address [address] [place] [phone] Phone Care Team Providers Care Wheel Mill Operator Name Role Phone RENATE MOORE Attending Unavailable [...] DIFF - Collect Date/T randall: 10/06/2023 12:25 [facility] ID: [id number] [address] [place], [place], [phone] LOINC: 49885-1 Test Value Unit Reference Range Code Code System Flag WBC 10.5 10^3uL L=4.8 H=10.8 RBC 4.02 10^6uL L=4.20 H=5.40 L HEMOGLOBIN 11.2 g/dL L=12.0 H=16.0 718-7 LOINC L HEMATOCRIT 33.3 VOL% L=37.0 H=47.0 4544-3 LOINC L MCV 82.8 fL L=81.0 H=99.0 MCH 27.9 pg L=27.0 H=32.0 MCHC 33.6 g/dL L=32.0 H=36.0 PLATELETS 306 10^3uL L=100 H=400 90398-5 LOINC RDW 12.1 % L=11.7 H=15.5 %GRAN 78.1 % L=40.0 H=70.0 82464-6 LOINC H %LYMPH 14.2 % L=20.0 H=45.0 736-9 LOINC L %MONO 6.5 % L=2.0 H=10.0 42996-4 LOINC %EOS 0.6 % L=0.0 H=6.0 713-8 LOINC %BASO 0.2 % L=0.0 H=3.0 706-2 LOINC #NEUT 8.2 10^3uL L=1.9 H=7.6 14408-1 LOINC H #LYMPH 1.5 10^3uL L=0.9 H=4.9 70956-3 LOINC #MONO 0.7 10^3uL L=0.1 H=0.9 00313-2 LOINC #EOS 0.1 10^3uL L=0.0 H=0.6 712-0 LOINC #BASO 0.02 10^3uL L=0.00 H=0.10 72068-0 LOINC #IM GRANS 0.0 10^3uL L=0.0 H=7.0 50277-6 LOINC %IM GRANS 0.4 % L=0.0 H=5.0 79638-6 LOINC %NRB 0.0 L=0.0 H=0.2 77293-6 LOINC #NRB 0.000 L=0.000 H=0.012 61830-0 LOINC MANUAL DIFF NOT INDICATED RBC MORPH NOT INDICATED COMPREHENSIVE METABOLIC PANE L - Collect Date/Time: 10/06/2023 12:25 [facility] ID: [id number] [address] [place], [place], [id number] LOINC: 53113-6 Test Value Unit Reference Range Code Code [...] 2028-9 LOINC ANION GAP 14 L=10 H=20 37333-6 LOINC OSMOLALITY 283 mOs/kG L=280 H=296 61110-8 LOINC BUN/CREAT 27.5 3097-3 LOINC CALCIUM 9.3 mg/dL L=8.3 H=10.5 07173-9 LOINC AST 21 U/L L=15 H=46 1920-8 LOINC ALT 13 U/L L=9 H=72 1742-6 LOINC ALKALINE PHOS 62 U/L L=38 H=126 6768-6 LOINC TOTAL BILI 0.3 mg/dL L=0.2 H=1.3 1975-2 LOINC ALBUMIN 4.3 G/dL L=3.5 H=5.0 1751-7 LOINC TOTAL PROTEIN 7.5 g/L L=6.3 H=8.2 2885-2 LOINC A/G RATIO 1.3 57528-8 LOINC AGE 23 59238-9 LOINC eGFR NON-AFR 208 ml/min eGFR AFR AMER 252 ml/min PROTIME - Collect Date/Time: 10/06/2023 12:25 [facility] ID: [id number] [place] [address], [id number] LOINC: 98210-8 Test Value Unit Reference Range Code Code System Flag PT 10.5 Sec L=9.7 H=11.7 99730-9 LOINC INR 1.0 Sec L=0.9 H=1.1 33857-3 LOINC PTT - Collect Date/Time: 07/2023 12:25 [facility] ID: [id number] [place] [address], [id number] LOINC: 29040-7 Test Value Unit Reference Range Code Code System Flag PTT 26.3 Sec L=23.0 H=31.2 LIPASE - Collect Date/Time: 10/06/2023 12:25 [facility] ID: [id number] [place] [address], [id number] LOINC: 3040-3 Test Value Unit Reference Range Code Code System Flag LIPASE 63 U/L L=23 H=300 3040-3 LOINC BETA HCG-QUANT - Collect Neil e/Time: 10/06/2023 12:25 [facility] ID: [id number] [place] [address], [phone] LOINC: 60164-1 Test Value Unit Reference Range Code Code System Flag BETA HCG-QUANT 270843.00 mIU/mL L=0.00 H=6.00 07484-5 LOINC H Social History Type Status Start Date End Date Code Code Syst em Smoking History Never smoker (Never Smoked) 334431343 SNOMED CT Sex Female Assessment You had [...] 6002 SNOMED-CT UNSPECIFIED ABDOMINAL PAIN active 215 34509 SNOMED-CT Allergies and Adverse Reactions Allergy Substance Reaction Severity Start Date Concern Status Co de Code System AMOXICILLIN Active 723 RxNorm TERBUTALINE Active 42814 RxNorm Plan of Treatment Stress Test Treadmill 01/21/2025 Hl7 Developer Consult 04/27/2025 Encounters Encounter Diagnosis Start Date [...]
--- OUTSIDE RECORDS SUMMARY | 2025-10-27 11:29 | XMS_ITS ---
Author Organization Unknown Address [address] [place] [address] [phone] Phone Care Team Providers Care Sieve Grader Tender Name Role Phone ANNABELLE GONZALEZ Attending Unavailable [...] Jarad Root M.D. AR: [place] Report ID: [id number] Reading Location: [place] [address] Social History Type Status Start Date End Date Code Code Syst em Smoking History Never smoker (Never Smoked) 561744699 SNOMED CT Sex Female Assessment You had [...] 6002 SNOMED-CT UNSPECIFIED ABDOMINAL PAIN active 215 34089 SNOMED-CT Allergies and Adverse Reactions Allergy Substance Reaction Severity Start Date Concern Status Co de Code System AMOXICILLIN Active 723 RxNorm TERBUTALINE Active 83121 RxNorm Plan of Treatment Stress Test Treadmill 01/21/2025 Apparel Pattern Maker Consult 04/27/2025 Encounters Encounter Diagnosis Start Date [...]
--- OUTSIDE RECORDS SUMMARY | 2025-10-27 11:29 | XMS_ITS ---
Author Organization Unknown Address [address] [place] [phone] Phone Care Team Providers Care Nail Welter Name Role Phone LINDA WRIGHT Attending Unavailable [...] DIFF - Collect Date/T randall: 09/12/2024 09:27 [facility] ID: [id number] [address] [place], [place], [id number] LOINC: 16036-8 Test Value Unit Reference Range Code Code System Flag WBC 7.6 10^3uL L=4.8 H=10.8 RBC 4.83 10^6uL L=4.20 H=5.40 HEMOGLOBIN 13.1 g/dL L=12.0 H=16.0 718-7 LOINC HEMATOCRIT 40.9 VOL% L=37.0 H=47.0 4544-3 LOINC MCV 84.7 fL L=81.0 H=99.0 MCH 27.1 pg L=27.0 H=32.0 MCHC 32.0 g/dL L=32.0 H=36.0 PLATELETS 305 10^3uL L=100 H=400 12685-1 LOINC RDW 12.1 % L=11.7 H=15.5 %GRAN 53.6 % L=40.0 H=70.0 14705-2 LOINC %LYMPH 34.1 % L=20.0 H=45.0 736-9 LOINC %MONO 8.1 % L=2.0 H=10.0 42225-5 LOINC %EOS 3.5 % L=0.0 H=6.0 713-8 LOINC %BASO 0.4 % L=0.0 H=3.0 706-2 LOINC #NEUT 4.1 10^3uL L=1.9 H=7.6 77774-3 LOINC #LYMPH 2.6 10^3uL L=0.9 H=4.9 11076-7 LOINC #MONO 0.6 10^3uL L=0.1 H=0.9 71495-9 LOINC #EOS 0.3 10^3uL L=0.0 H=0.6 712-0 LOINC #BASO 0.03 10^3uL L=0.00 H=0.10 35169-8 LOINC #IM GRANS 0.0 10^3uL L=0.0 H=7.0 83461-8 LOINC %IM GRANS 0.3 % L=0.0 H=5.0 37342-3 LOINC %NRB 0.0 L=0.0 H=0.2 87295-4 LOINC #NRB 0.000 L=0.000 H=0.012 36804-7 LOINC MANUAL DIFF NOT INDICATED RBC MORPH NOT INDICATED COMPREHENSIVE METABOLIC PANE L - Collect Date/Time: 09/12/2024 09:27 [facility] ID: [id number] [address] [place], [place], [phone] LOINC: 16433-4 Test Value Unit Reference Range Code Code [...] 2028-9 LOINC ANION GAP 14 L=10 H=20 64965-2 LOINC OSMOLALITY 291 mOs/kG L=280 H=296 04208-2 LOINC BUN/CREAT 24.3 3097-3 LOINC CALCIUM 9.6 mg/dL L=8.3 H=10.5 46758-1 LOINC AST 45 U/L L=15 H=46 1920-8 LOINC ALT 45 U/L L=9 H=72 1742-6 LOINC ALKALINE PHOS 78 U/L L=38 H=126 6768-6 LOINC TOTAL BILI 0.5 mg/dL L=0.2 H=1.3 1975-2 LOINC ALBUMIN 4.7 G/dL L=3.5 H=5.0 1751-7 LOINC TOTAL PROTEIN 8.1 g/L L=6.3 H=8.2 2885-2 LOINC A/G RATIO 1.4 03595-9 LOINC AGE 24 67434-6 LOINC eGFR NON-AFR 108 ml/min eGFR AFR AMER 131 ml/min TSH / REFLEX FT4 - Collect D ate/Time: 09/12/2024 09:27 [facility] ID: [id number] [address] [place], [place], [phone] LOINC: Test Value Unit Reference Range Code Code System Flag TSH 0.947 uIU/L L=0.470 H=4.680 67281-9 LOINC Social History Type Status Start Date End Date Code Code Syst em Smoking History Never smoker (Never Smoked) 375571139 SNOMED CT Sex Female Assessment You had [...] 6002 SNOMED-CT UNSPECIFIED ABDOMINAL PAIN active 215 87628 SNOMED-CT Allergies and Adverse Reactions Allergy Substance Reaction Severity Start Date Concern Status Co de Code System AMOXICILLIN Active 723 RxNorm TERBUTALINE Active 21875 RxNorm Plan of Treatment Stress Test Treadmill 01/21/2025 Practice Director Consult 04/27/2025 Encounters Encounter Diagnosis Start Date Code Code Sys tem Encounter for other preprocedural examination 09/12/20 SNOMED-CT Personal Care Team Section Performer Name Performer Role Active Date Inactive Da te KRAIG ESTRADA PCP - Primary care physician 2021-10 02024-09-12 KRAIG ESTRADA PCP - Primary care physician 11-062024-09-12 KRAIG ESTRADA PCP - Primary care physician 11-064-11-16 KRAIG ESTRADA PCP - Primary care physician 0 -16 2024-09-12 Hong Abdi PCP - Primary care physician 2024-09-12
--- OUTSIDE RECORDS SUMMARY | 2025-10-27 11:30 | XMS_ITS ---
Author Organization Unknown Address [address] [place] [address] [phone] Phone Care Team Providers Care Central Office Repairer Name Role Phone MARK Fernandez Attending Unavailable [...] em Smoking History Never smoker (Never Smoked) 140621419 SNOMED CT Sex Female Assessment You had [...] 6002 SNOMED-CT UNSPECIFIED ABDOMINAL PAIN active 215 45307 SNOMED-CT Allergies and Adverse Reactions Allergy Substance Reaction Severity Start Date Concern Status Co de Code System AMOXICILLIN Active 723 RxNorm TERBUTALINE Active 37394 RxNorm Plan of Treatment Stress Test Treadmill 01/21/2025 Wax Engraver Consult 04/27/2025 Encounters Encounter Diagnosis Start Date [...]
--- OUTSIDE RECORDS SUMMARY | 2025-10-27 11:30 | XMS_ITS ---
Author Organization Unknown Address [address] [place] [phone] Phone Care Team Providers Care Supervisor Lime Name Role Phone RUFUS SEGAL Attending Unavailable [...] em Smoking History Never smoker (Never Smoked) 633424245 SNOMED CT Sex Female Assessment You had [...] 6002 SNOMED-CT UNSPECIFIED ABDOMINAL PAIN active 215 42652 SNOMED-CT Allergies and Adverse Reactions Allergy Substance Reaction Severity Start Date Concern Status Co de Code System AMOXICILLIN Active 723 RxNorm TERBUTALINE Active 83271 RxNorm Plan of Treatment Stress Test Treadmill 01/21/2025 Entry Level Account Manager Consult 04/27/2025 Encounters Encounter Diagnosis Start [...]
--- OUTSIDE RECORDS SUMMARY | 2025-10-27 11:30 | XMS_ITS ---
Author Organization Unknown Address [address] [place] [address] [phone] Phone Care Team Providers Care Production Planning Supervisor Name Role Phone MARK Fernandez Attending Unavailable [...] em Smoking History Never smoker (Never Smoked) 023526054 SNOMED CT Sex Female Assessment You had [...] 6002 SNOMED-CT UNSPECIFIED ABDOMINAL PAIN active 215 43454 SNOMED-CT Allergies and Adverse Reactions Allergy Substance Reaction Severity Start Date Concern Status Co de Code System AMOXICILLIN Active 723 RxNorm TERBUTALINE Active 57083 RxNorm Plan of Treatment Stress Test Treadmill 01/21/2025 Perinatal Specialist Consult 04/27/2025 Encounters Encounter Diagnosis Start [...]
--- OUTSIDE RECORDS SUMMARY | 2025-10-27 11:30 | XMS_ITS ---
Author Organization Unknown Address [address] [place] [phone] Phone Care Team Providers Care Van Owner Operator Name Role Phone MIKE CURTSI Attending Unavailable SEAN Balderrama Primary Unavailable Immunization [...] LEVEL - Collect Neil e/Time: 07/10/2024 09:21 [facility] ID: [id number] [address] [place] [address], [id number] LOINC: 70713-4 Test Value Unit Reference Range Code Code System Flag TROPONIN < 0.012 ng/mL L=0.000 H=0.033 91628-5 LOINC D DIMER - Collect Date/Time: 07/10/2024 09:21 [facility] ID: [id number] [address] [place] [address], [id number] LOINC: Test Value Unit Reference Range Code Code System Flag DDIMER 0.95 mg/L FEU L=0.00 H=0.50 H Social History Type Status Start Date End Date Code Code Syst em Smoking History Never smoker (Never Smoked) 548155151 SNOMED CT Sex Female Assessment You had [...] 6002 SNOMED-CT UNSPECIFIED ABDOMINAL PAIN active 215 70535 SNOMED-CT Allergies and Adverse Reactions Allergy Substance Reaction Severity Start Date Concern Status Co de Code System AMOXICILLIN Active 723 RxNorm TERBUTALINE Active 04042 RxNorm Plan of Treatment Stress Test Treadmill 01/21/2025 Facility Maintenance Helper Consult 04/27/2025 Encounters Encounter Diagnosis Start [...]
--- NOTE | 2025-10-27 12:04 | ED.HA ---
HPI - Headache General Chief Complaint: Headache Stated Complaint: headache, neck pain Time Seen by Provider: 10/27/25 12:03 Source: patient Mode of arrival: ambulatory Limitations: no limitations History of Present Illness HPI Narrative: Patient presents with concern for headache and neck pain of 2 days duration. Pain was 6/10 in severity in triage 5/10 in severity currently. She has been having congestion as well as myalgias particularly in her arms and legs. She had rhinorrhea particularly in her right naris yesterday. Patient does report that she use a Neti pot and use tap water instead of distilled water and is somewhat concerned about this as her grandmother told her she might have an amoeba. She notes that multiple people in the household which she shares with her mother and her children have been sick with similar symptoms and she was using the Neti pot because of this. She presented to the emergency room at [facility] yesterday for this but states that she felt that they dismissed her after determining that she had normal vital signs. She has a history of health anxiety and states that she was quite familiar to them because of this. She has a history of reactive airway disease for which she uses albuterol and Symbicort. She is due to establish with a local PCP Carrie but has not yet. Patient had previously been on nifedipine extended release but has been off because had been doing better. She has been trying Tylenol and Flonase. She reports that they do have a carbon monoxide detector in have. She does not have a history of diabetes mellitus. She took 2 tablets of 500 mg Tylenol 10:00 a.m. which provided some relief. She has intermittently had headaches before and this feels somewhat similar. No trauma, not on anticoagulation. She has had a subjective fever. Denies any photophobia or phonophobia. Denies any eye pain although she did feel like her headache was located behind her left eye intermittently. Her headache is located at her posterior scalp/occiputs as well as intermittently throughout the top of her head. She has had a cough productive of yellow sputum and experiences occasional chest pain and slight shortness of breath. No vision changes. Related Data Home Medications ?Medication ?Instructions ?Recorded ?Confirmed ?Last Taken ?Type albuterol sulfate 90 mcg/actuation 2 puff inhalation DAILY 02/04/25 08/11/25 02/18/25 History aerosol inhaler (Ventolin HFA) budesonide-formoterol HFA 80 2 puff inhalation DAILY 02/04/25 08/11/25 08/11/25 History mcg-4.5 mcg/actuation aerosol inhaler (Symbicort) vit no.95-ferrous 1 tablet PO DAILY 08/11/25 08/11/25 08/11/25 History fumarate 28 mg-folic acid 800 mcg tablet () Allergies Allergy/AdvReac Type Severity Reaction Status Date / Time terbutaline Allergy Severe Anaphylactic Verified 10/27/25 11:06 Shock amoxicillin (From Amoxil) AdvReac Palpitation Verified 10/27/25 11:06 s PMFSH Past Medical History Medical History Reactive airway disease Former smoker Anxiety about health Miscarriage 10/15/25 Viral meningitis Anxiety Depression Surgical History Surgical History History of cholecystectomy Family History Family History Grandparent Diabetes mellitus Cardiac arrhythmia Sibling Asthma Mother Rheumatoid arthritis Diabetes mellitus Social History Social History Smoking packs per day: 0.25 Smoking cigarettes per day: 5.0 Smoking status: Former smoker Tobacco type: e-cigarettes/vaping Second hand tobacco smoke exposure: No Alcohol intake: never Substance use: never Substance use type: marijuana Lack of Transportation: No Lack of Food: Never True Current Housing: I Have Housing Concerned About Future Housing: No Difficulty Paying Gas/Electric Bills: No Difficulty Paying for Meds: No Currently Unemployed: No Education: Grade School Difficulty w/ Childcare or Family Care: YES Living arrangements: with family Additional living arrangements comments: mother and her children Gender identity (if verbalized by the patient): Female Sexual Orientation (if Verbalized by the Patient): Straight or Heterosexual Spiritual care concerns: No Exam Narrative: GENERAL: Well-appearing, well-nourished, and in no acute distress. HEAD: Normocephalic, atraumatic. EYES: Non injected, non icteric. Extraocular movements intact. No horizontal nystagmus. PERRL. No APD. No gaze palsy. ENT: Nares clear, no rhinorrhea or epistaxis. Gross auditory acuity intact. Bilateral tympanic membranes easily visualized and without erythema. No perforation. Scant effusion on the right but without bulging. NECK: Supple. No meningismus. Not held in fixed position. No TTP of midline C spine/ no bony stepoffs CHEST: Speaking in full sentences. No respiratory distress. Lungs clear to auscultation bilaterally without wheezes, crackles, bronchospasm, stridor. HEART: Regular rate and rhythm. ABDOMEN: Soft, nondistended. No rigidity or guarding. Not peritoneal EXTREMITIES: Normal range of motion. No lower extremity edema. SKIN: Warm, dry, no rash. Back: Mild midscapular TTP NEURO: No focal deficits. Alert and oriented. Answering questions. Following commands. Normal speech without aphasia or dysarthria. PSYCH: Normal mood and affect. Course Vital Signs Vital signs: Vital Signs Temperature 97.7 F 10/27/25 11:04 Pulse Rate 79 10/27/25 11:04 Respiratory Rate 18 10/27/25 11:04 Blood Pressure 154/74 H 10/27/25 11:04 Pulse Oximetry 100 10/27/25 11:04 Oxygen Delivery Room Air 10/27/25 11:04 Temperature 98.2 F 10/27/25 12:34 Pulse Rate 66 10/27/25 15:29 Respiratory Rate 17 10/27/25 15:29 Blood Pressure 144/96 H 10/27/25 15:29 Pulse Oximetry 99 10/27/25 15:29 Oxygen Delivery Room Air 10/27/25 11:04 [facility] Narrative Medical decision making narrative: After obtaining the patient's history and performing a physical exam, the headache is most likely due to benign etiology. The neurological examination is non-focal, there are no high-risk features on history, vital signs are acceptable (although hypertensive), and the patient is non-toxic appearing. The Ddx for the patient's headache is tension headache, migraine, or other headache of non-emergent etiology. High suspicion for viral etiology given constellation of other symptoms. Unlikely SAH: headache is non-thunderclap. Headache is similar to headaches in the past. Unlikely subdural/epidural hematoma: no history of trauma, no anticoagulation Unlikely meningitis: afebrile, neck pain but no meningismus, no photophobia Unlikely temporal arteritis: pt <60 years old. No pain in temporal area. No vision changes or eye pain. Unlikely acute angle glaucoma: PERRL, no eye pain Unlikely carbon monoxide poisoning: other house members with similar symptoms however confirmed carbon monoxide detector Will defer obtaining CT imaging of brain. Very low suspicion for brain abscess and the risks/benefits of radiation exposure and potential malignancies thereof is considered. This is especially in the setting of noting a head CT w/o contrast and a CTA brain have both been performed in the past year at our facility. The plan was to treat symptomatically with ketorolac IM and PO magnesium. Per RN, patient declines medications and would like to discuss with me. She wanted her temperature repeated but remains afebrile, 98.2. We discussed the risks and benefits of obtaining CT imaging given the very low suspicion for pathological process. Patient is looking for reassurance that she does not have any but and we talked about the very low suspicion for this given that in general tap water enters people's GI systems and nasal passages. She does provide more information at this time in which she states that a physical exam was performed at yesterday's emergency department visit during which she was told that she did not have an ear infection but that her ears were not draining properly. She also reports that she was told she had swelling on her back/neck. We discussed these symptoms and I in addition asked additional questions. She reports that she was discharged with Rx for Ativan after beign given some in the ED as well. She denies edema. No surgery within the past 1 month although she did deliver her 5th child on 09/04/2025 and had a tubal ligation on 09/06/2025. She is not currently on control or exogenous hormones. No history of PE or DVT. She does report that she has a little bit of bloody sputum when she coughs. Suspect URI /irritation however, out of an abundance of precaution: PERC Rule Age greater than or equal to 50: 0 HR greater than or equal to 100: 0 O2 sat room air <95%: 0 Unilateral leg swellin Hemoptysis: ?possible mild Recent surgery or trauma less than 4 wks ago requiring tx with general anesthesia: 0 Prior PE or DVT:0 Hormone use (OCP, HRT or estrogenic hormone use in M/F patients): 0 Will broaden work up to include labs, CXR, and EKG. Viral swab is negative. CBC with mild abnormalities on the differential but otherwise without anemia no leukocytosis, thrombocytopenia. Benzonatate ordered for cough. Dimer mildly elevated. Can not apply YEARS (due to questionable hemoptysis) or age adjust so will proceed with CT imaging. This is negative. Discharged with return precautions and instructions to follow up with PCP . Provided contact information for a local physician and also discharged with prescriptions for [id number] analgesics medication in addition to Tessalon Perles. Differential Diagnosis Differential Diagnosis: (as above) Lab Data MDM Lab Attestation statement: I personally reviewed the patient's lab results. Lab results narrative: Chemistry unremarkable with normal renal function 10/27/25 13:13 10/27/25 13:13 Labs: Lab Results 10/27/25 10/27/25 Range/Units 12:13 13:13 WBC 5.7 (4.5-10.0) K/mm3 RBC 5.07 (4.2-5.4) M/mm3 Hgb 12.7 (12.0-15.0) g/dL Hct 40.8 (37.0-47.0) % MCV 80.5 (80-100) fl MCH 25.0 L (26-34) pg MCHC 31.1 L (32-36) g/dl RDW 14.5 (11.5-14.5) % Plt Count 292 (150-375) k/mm3 MPV 9.3 (7.4-10.4) fl Immature Gran % (Auto) 0.4 (0-0.5) % Neut % (Auto) 56.2 (45.5-73.1) % Lymph % (Auto) 32.9 (18.3-44.2) % Nicollet % (Auto) 7.7 (2.6-8.5) % Eos % (Auto) 2.3 (0-4.4) % Baso % (Auto) 0.5 (0.2-1.2) % Lymph # (Auto) 1.87 (0.9-3.2) K/mm3 Nicollet # (Auto) 0.4 (0.1-0.6) K/mm3 Eos # (Auto) 0.1 (0-0.3) K/mm3 Baso # (Auto) 0.0 (0.0-0.1) K/mm3 Abs Immat Gran (auto) 0.02 (0.00-0.031) K/mm3 Absolute Neuts (auto) 3.2 (1.3-6.7) K/mm3 Absolute Nucleated RBC 0.000 (0.0-0.012) K/mm3 Nucleated RBC % 0.0 (0.0-0.2) % PT 13.3 (11.1-14.7) Seconds INR 1.0 APTT 38.4 H (22.3-36.8) Seconds D-Dimer 0.87 H (<0.48) ug/mL Sodium 141 (137-145) mmol/L Potassium 4.0 (3.4-5.0) mmol/L Chloride 107 (98-107) mmol/L Carbon Dioxide 27 (22-30) mmol/L Anion Gap 7 (4-12) mmol/L BUN 13 D (7-17) mg/dL Creatinine 0.65 L (0.7-1.0) mg/dL Estim Creat Clear Calc 105 ml/min Estimated GFR > 60 (59 - ) Glucose 93 (65-110) mg/dL Calcium 9.3 (8.4-10.2) mg/dL Serum HCG, Qual Negative Influenza A (RT-PCR) Negative (Negative) Influenza B (RT-PCR) Negative (Negative) RSV (RT-PCR) Negative (Negative) SARS-CoV-2 RNA (RT-PCR) Negative (Negative) Imaging Data Radiologist's impression: ITS Impressions Chest X-Ray 10/27/25 13:39 IMPRESSION: 1. No acute cardiopulmonary findings given portable technique. Chest CTA 10/27/25 15:37 IMPRESSION: 1. No pulmonary embolism or other acute cardiopulmonary disease. ECG Data EKG #1: Attestation: I personally reviewed and interpreted this ECG as follows: ECG completion date: 10/27/25 ECG completion time: 13:23 Interpretation: Sinus bradycardia rate of 43 beats per minute. AK interval 133. QRS 93. QT/QTC 466/393. Good R-wave progression across the precordial leads. T-wave flattening versus inversion in lead 3 and flattening in AVF but otherwise upright in 2. No T-wave inversions in precordial leads. Discharge Plan Discharge Clinical Impression: Headache, Neck and shoulder pain, Acute viral syndrome, Myalgia, Cough Patient Disposition: Home Condition: Stable Instructions: Antibiotic Form, Viral Syndrome (ED), Acute Cough (ED), General Headache (ED), Neck Pain (ED) Additional Instructions: Acetaminophen/Tylenol (maximum 4000 mg per day) is safe to take with NSAIDs (ibuprofen/Motrin) for pain relief. The Tessalon Perles may help with cough but keep out of reach of children. As we discussed, your symptoms sound viral although you tested negative for COVID, influenza a, influenza B, and RSV. Rest and maintain your hydration. Drink plenty of fluids. Follow-up with primary care provider. If there is a delay in establishing with someone, the name of the doctors listed below. Return to the emergency department any new or worsening symptoms. Patient Language: Czech Prescriptions: New benzonatate 100 mg capsule 100 mg PO BID PRN (Reason: cough) Qty: 20 0RF acetaminophen 500 mg capsule 1,000 mg PO Q6H PRN (Reason: pain) Qty: 30 0RF ibuprofen 200 mg capsule 600 mg PO Q6H PRN (Reason: fever or pain) Qty: 30 0RF No Action albuterol sulfate [Ventolin HFA] 90 mcg/actuation HFA aerosol inhaler 2 puff inhalation DAILY budesonide-formoterol [Symbicort] 80-4.5 mcg/actuation HFA aerosol inhaler 2 puff inhalation DAILY PNV no.95-ferrous fumarate-FA [] 28 mg iron- 800 mcg tablet 1 tablet PO DAILY polysaccharide iron complex 150 mg iron Capsule 150 mg PO BIDWM Qty: 60 0RF hydrocodone-acetaminophen 5-325 mg tablet 1 - 2 tablet PO Q6H PRN (Reason: pain) Qty: 10 0RF Follow-up/Referrals: Ren Del Cid MD [Physician, Family Practice] UNKNOWN,DOCTOR [Primary Care Provider] Stand Alone Forms: Work/School Release IP Time of Disposition: 15:47
--- OUTSIDE RECORDS SUMMARY | 2025-10-27 12:09 | XMS_ITS | Continuity of Care Document ---
Author Organization [facility], [facility] Address [address] [place] [address] Care Team Providers Care Marketing Programs Specialist Name Role Phone CARLOS ESTRADA Primary Care Provider Assessment No assessment recorded. Plan of Treatment Reminders Order Date Submit Date Provider Last Modified By Organization Details Last Modified Time Details Appointments None record ed. Lab None record ed. Referral None record ed. Procedures None record ed. Surgeries None record ed. Imaging US, obstet sandra, follow -up 025 08/04/20 25 [email or web address] [address], [address], [place], [address], 22:15:50 Medication Orders None record ed. Patient TargetsNo targets recorded. Patient InstructionsNo instructions recorded. Reason for Referral None Reported. Results Created Date Observation Date Name Description Value Unit Range Abnormal Flag Note LastModifiedBy Organization Detail LastModifiedTime 03/06/20 25 03/06/2025 [UNIT Y] ANEUP LOIDY NIPT fraction 5.7% normal Not Available [facility] [address], [place], [address], 03/06/2025 03:58:26 03/06/20 25 03/06/2025 [UNIT Y] ANEUP LOIDY NIPT sex chromosome aneuploidy NOT DETECT ED normal Not Available [facility] [address], [place], [address], 03/06/2025 03:58:26 03/06/20 25 03/06/2025 [UNIT Y] ANEUP LOIDY NIPT monosomy X LOW RISK <1 in 10,000 normal Not Available [facility] [address], [place], [address], 03/06/2025 03:58:26 03/06/20 25 03/06/2025 [UNIT Y] ANEUP LOIDY NIPT trisomy 13 LOW RISK <1 in 10,000 normal Not Available [facility] [address], [place], [address], 03/06/2025 03:58:26 03/06/20 25 03/06/2025 [UNIT Y] ANEUP LOIDY NIPT trisomy 18 LOW RISK <1 in 10,000 normal Not Available [facility] [address], [place], [address], 03/06/2025 03:58:26 03/06/20 25 03/06/2025 [UNIT Y] ANEUP LOIDY NIPT trisomy 21 LOW RISK <1 in 10,000 normal Not Available [facility] [address], [place], [address], 03/06/2025 03:58:26 03/06/20 25 03/06/2025 [UNIT Y] ANEUP LOIDY NIPT sex FEMALE normal Not Available [facility] [address], [place], [address], 03/06/2025 03:58:26 03/06/20 25 03/06/2025 [UNIT Y] ANEUP LOIDY NIPT gestation SINGLE TON normal Not Available [facility] [address], [place], [address], 03/06/2025 03:58:26 03/06/20 25 03/06/2025 [UNIT Y] ANEUP LOIDY NIPT for detailed report, see pdf See PDF normal Not Available [facility] [address], [place], [address], 03/06/2025 03:58:26 03/02/2003/02/2025 CULTU RE: URINE result report SEE RESULT S BELOW Test: Cultu re: Urine Speci men Sourc e: Urine - Clean Catch Speci men Type: Urine Speci men Date: 025 1455 Resul t Date: 025 2138 Resul t Statu s: Final resul t Abnor mal: No Resul ting Lab: [facility] [address] [facility] [address] Tel: CULTU RE ----- ----- ----- --- No growt h in 1 day (dete ction level of 10,00 0 colon ies / ml.) Not Available [facility] (Lab) [address] [facility], [place], [address], 03/03/2025 22:42:27 03/12/2003/12/2025 CULTU RE: URINE result report SEE RESULT S BELOW Test: Cultu re: Urine Speci men Sourc e: Urine - Clean Catch Speci men Type: Urine Speci men Date: 2024 1600 Resul t Date: 2024 0610 Resul t Statu s: Final resul t Abnor mal: No Resul ting Lab: [facility] [address] [facility] [address] Tel: CULTU RE ----- ----- ----- --- No growt h in 1 day (dete ction level of 10,00 0 colon ies / ml.) Not Available [facility] (Lab) [address] [facility], [place], [address], 03/14/2025 07:15:03 03/12/2003/12/2025 urina lysis , dipst ick Leukocytes ++ Not Available [address], [place], [address], 03/12/2025 16:45:06 03/12/2003/12/2025 urina lysis , dipst ick Protein + Not Available [facility] [address], [place], [address], 03/12/2025 16:45:06 03/12/20 25 03/12/2025 urina lysis , dipst ick pH 5 Not Available [facility] [address], [place], [address], 03/12/2025 16:45:06 03/12/20 25 03/12/2025 urina lysis , dipst ick Blood trace Not Available [facility] [address], [place], [address], 03/12/2025 16:45:06 03/12/20 25 03/12/2025 urina lysis , dipst ick Specific Thornton 1.015 Not Available [facility] [address], [place], [address], 03/12/2025 16:45:06 03/12/20 25 03/12/2025 urina lysis , dipst ick Ketone +++ Not Available [facility] [address], [place], [address], 03/12/2025 16:45:06 03/31/20 25 03/31/2025 TSH, REFLE X FREE T4 TSH 0.42 uIU/m L 0.30-5 .33 Not Available [facility] (Lab) [address], [place], [address], 04/01/2025 03:05:12 03/31/20 25 03/31/2025 CULTU RE: URINE result report SEE RESULT S BELOW Test: Cultu re: Urine Speci men Sourc e: Urine Voide d Speci men Type: Urine Speci men Date: 1710 Resul t Date: 6 Resul t Statu s: Final resul t Abnor mal: No Resul ting Lab: [facility] [address] [facility] [address] Tel: CULTU RE ----- ----- ----- --- Cultu re resul t (>=3 organ isms prese nt) indic ates possi ble conta minat ion. Repea t cultu re if sympt oms indic ate. Not Available [facility] (Lab) [address] [facility], [place], [address], 04/01/2025 23:59:19 03/31/20 25 03/31/2025 urina lysis , dipst ick Leukocytes +1 Not Available [address], [place], [address], 03/31/2025 09:23:13 03/31/20 25 03/31/2025 urina lysis , dipst ick Nitrite normal Not Available [facility] [address], [place], [address], 03/31/2025 09:23:13 03/31/20 25 03/31/2025 urina lysis , dipst ick Urobilinogen normal Not Available [facility] david [address], [place], [address], 03/31/2025 09:23:13 03/31/20 25 03/31/2025 urina lysis , dipst ick Protein trace Not Available [facility] [address], [place], [address], 03/31/2025 09:23:13 03/31/20 25 03/31/2025 urina lysis , dipst ick pH 5 Not Available [facility] [address], [place], [address], 03/31/2025 09:23:13 03/31/20 25 03/31/2025 urina lysis , dipst ick Specific Thornton 1.020 Not Available [facility] nita [address], [place], [address], 03/31/2025 09:23:13 03/31/20 25 03/31/2025 urina lysis , dipst ick Ketone normal Not Available [facility] [address], [place], [address], 03/31/2025 09:23:13 03/31/20 25 03/31/2025 urina lysis , dipst ick Bilirubin normal Not Available [facility] anna [address], [place], [address], 03/31/2025 09:23:13 03/31/20 25 03/31/2025 urina lysis , dipst ick Glucose normal Not Available [facility] [address], [place], [address], 03/31/2025 09:23:13 03/31/20 25 03/31/2025 urina lysis , dipst ick Appearance normal Not Available [facility] domingo [address], [place], [address], 03/31/2025 09:23:13 03/31/20 25 03/31/2025 urina lysis , dipst ick Color normal Not Available [facility] [address], [place], [address], 03/31/2025 09:23:13 04/01/20 25 04/01/2025 [facility] DENIS bacterial vaginosis (bv), tma Negati ve negati ve Not Available [facility] (Lab) [address] [place], [address], 04/02/2025 14:08:45 04/01/20 25 04/01/2025 [facility], DENIS mekhi species, tma Negati ve negati ve Not Available [facility] (Lab) [address] [place], [address], 04/02/2025 14:08:45 04/01/20 25 04/01/2025 [facility], DENIS mekhi glabrata, tma Negati ve negati ve Not Available [facility] (Lab) [address] [place], [address], 04/02/2025 14:08:45 04/01/20 25 04/01/2025 [facility], DENIS trichomonas vaginalis, tma Negati ve negati ve Not Available [facility] (Lab) [address] [place], [address], 04/02/2025 14:08:45 04/01/20 25 04/01/2025 [facility], DENIS chlamydia trachomatis, PCR Negati ve negati ve Not Available [facility] (Lab) [address] [place], [address], 04/02/2025 14:08:45 04/01/20 25 04/01/2025 [facility], DENIS neisseria gonorrhoeae, [...] ded in this panel . Not Available [facility] (Lab) [address] [place], [address], 04/02/2025 14:08:45 04/22/20 25 04/22/2025 CULTU RE: URINE result report SEE RESULT S BELOW Test: Cultu re: Urine Speci men Sourc e: Urine Voide d Speci men Type: Urine Speci men Date: 2024 1314 Resul t Date: 2024 0322 Resul t Statu s: Final resul t Abnor mal: No Resul ting Lab: [facility] [address] [facility] [address] Tel: CULTU RE ----- ----- ----- --- No growt h in 1 day (dete ction level of 10,00 0 colon ies / ml.) Not Available [facility] (Lab) [address], [place], [address], 04/24/2025 04:28:01 04/22/20 25 04/22/2025 urina lysis , dipst ick Leukocytes + Not Available [facility] [address], [place], [address], 04/22/2025 10:01:51 04/22/20 25 04/22/2025 urina lysis , dipst ick Protein + Not Available [facility] [address], [place], [address], 04/22/2025 10:01:51 04/22/20 25 04/22/2025 urina lysis , dipst ick pH 8 Not Available [facility] [address], [place], [address], 04/22/2025 10:01:51 04/22/20 25 04/22/2025 urina lysis , dipst ick Blood + Not Available [facility] [address], [place], [address], 04/22/2025 10:01:51 04/22/20 25 04/22/2025 urina lysis , dipst ick Specific Thornton 1.010 Not Available [facility] [address], [place], [address], 04/22/2025 10:01:51 04/22/20 25 04/22/2025 urina lysis , dipst ick Ketone + Not Available [place] [address], [place], [address], 04/22/2025 10:01:51 06/23/20 25 06/23/2025 HEMAT OCRIT (HCT) HCT 35.6 % (based on docume nted legal sex) 34.0-4 5.0 Not Available [facility] (Lab) [address] [facility], [place], [address], 06/24/2025 11:45:32 06/23/20 25 06/23/2025 HEMOG LOBIN (HGB) HGB 11.1 g/dL (based on docume nted legal sex) 11.6-1 5.4 low Not Available [facility] (Lab) [address] [place], [address], 06/24/2025 11:45:32 06/23/20 25 06/23/2025 GTT - GESTA ROLAND L SCREE N, ACOG OB glucose, 1 hour screen 180 mg/dL 70-135 high Not Available [facility] (Lab) [address] [place], [address], 06/24/2025 11:45:33 06/23/20 25 06/23/2025 HIV 1/2 ANTIG EN/AN TIBOD Y, REFLE X CONFI RMATI ON HIV antigen/anti body Nonrea ctive nonrea ctive HIV-1 antig en and HIV-1 /HIV- 2 antib odies were not detec greg. No labor atory evide nce of HIV infec tion. Not Available [facility] (Lab) [address] [facility], [place], [address], 06/24/2025 11:45:33 06/23/20 25 06/23/2025 RPR SCREE N, REFLE X TITER /CONF IRMAT ION RPR qualitative Nonrea ctive nonrea ctive Not Available [facility] (Lab) [address] [facility], [place], [address], 06/24/2025 11:45:34 07/21/20 25 07/21/2025 CULTU RE: URINE result report SEE RESULT S BELOW Test: Cultu re: Urine Speci men Sourc e: Urine - Clean Catch Speci men Type: Urine Speci men Date: 2024 1024 Resul t Date: 2024 0252 Resul t Statu s: Final resul t Abnor mal: No Resul ting Lab: [facility] [address] [facility] [address] Tel: CULTU RE ----- ----- ----- --- No growt h in 1 day (dete ction level of 10,00 0 colon ies / ml.) Not Available [facility] (Lab) [address] [facility], [place], [address], 07/23/2025 03:57:01 07/21/2007/21/2025 urina lysis , dipst ick Leukocytes ++ Not Available [facility] [address], [place], [address], 07/21/2025 11:03:04 07/21/20 25 07/21/2025 urina lysis , dipst ick Nitrite neg Not Available [address], [place], [address], 07/21/2025 11:03:04 07/21/20 25 07/21/2025 urina lysis , dipst ick Urobilinogen neg Not Available [facility] [address], [place], [address], 07/21/2025 11:03:04 07/21/20 25 07/21/2025 urina lysis , dipst ick Protein + Not Available [facility] [address], [place], [address], 07/21/2025 11:03:04 07/21/20 25 07/21/2025 urina lysis , dipst ick pH 5 Not Available [facility] [address], [place], [address], 07/21/2025 11:03:04 07/21/20 25 07/21/2025 urina lysis , dipst ick Specific Thornton 1.030 Not Available [facility] [address], [place], [address], 07/21/2025 11:03:04 07/21/20 25 07/21/2025 urina lysis , dipst ick Ketone +++ Not Available [facility] [address], [place], [address], 07/21/2025 11:03:04 07/21/20 25 07/21/2025 urina lysis , dipst ick Bilirubin neg Not Available [facility] [address], [place], [address], 07/21/2025 11:03:04 07/21/20 25 07/21/2025 urina lysis , dipst ick Glucose neg Not Available [facility] [address], [place], [address], 07/21/2025 11:03:04 07/21/20 25 07/21/2025 urina lysis , dipst ick Appearance cloudy Not Available [address], [place], [address], 07/21/2025 11:03:04 07/21/20 25 07/21/2025 urina lysis , dipst ick Color dark Not Available [facility] [address], [place], [address], 07/21/2025 11:03:04 08/04/20 25 08/04/2025 CMP(C OMPRE HENSI VE METAB OLIC PANEL ) sodium 138 mmol/ L 133-14 6 Not Available [facility] (Lab) [address] [facility], [place], [address], 08/05/2025 13:39:18 08/04/20 25 08/04/2025 CMP(C OMPRE HENSI VE METAB OLIC PANEL ) potassium 4.0 mmol/ L 3.5-5. 1 Not Available [facility] (Lab) [address] [facility], [place], [address], 08/05/2025 13:39:18 08/04/20 25 08/04/2025 CMP(C OMPRE HENSI VE METAB OLIC PANEL ) chloride 105 mmol/ L 98-107 Not Available [facility] (Lab) [address] [facility], [place], [address], 08/05/2025 13:39:18 08/04/20 25 08/04/2025 CMP(C OMPRE HENSI VE METAB OLIC PANEL ) carbon dioxide 25 mmol/ L 21-31 Not Available [facility] (Lab) [address] [facility], [place], [address], 08/05/2025 13:39:18 08/04/20 25 08/04/2025 CMP(C OMPRE HENSI VE METAB OLIC PANEL ) anion gap 8 mmol/ L 4-13 Not Available [facility] (Lab) [address] [place], [address], 08/05/2025 13:39:18 08/04/20 25 08/04/2025 CMP(C OMPRE HENSI VE METAB OLIC PANEL ) blood urea nitrogen 10 mg/dL 7-25 Not Available [facility] (Lab) [address] [facility], [place], [address], 08/05/2025 13:39:18 08/04/20 25 08/04/2025 CMP(C OMPRE HENSI VE METAB OLIC PANEL ) creatinine 0.41 mg/dL 0.60-1 .30 low Not Available [facility] (Lab) [address] [facility], [place], [address], 08/05/2025 13:39:18 08/04/20 25 08/04/2025 CMP(C OMPRE HENSI VE METAB OLIC PANEL ) egfrcr (CKD-epi 2020) >90 mL/mi n/1.7 3_m2 >=60 Not Available [facility] (Lab) [address] [facility], [place], [address], 08/05/2025 13:39:18 08/04/20 25 08/04/2025 CMP(C OMPRE HENSI VE METAB OLIC PANEL ) calcium 8.9 mg/dL 8.3-10 .5 Not Available [facility] (Lab) [address] [facility], [place], [address], 08/05/2025 13:39:18 08/04/20 25 08/04/2025 CMP(C OMPRE HENSI VE METAB OLIC PANEL ) glucose 116 mg/dL 70-100 high Not Available [facility] (Lab) [address] [facility], [place], [address], 08/05/2025 13:39:18 08/04/20 25 08/04/2025 CMP(C OMPRE HENSI VE METAB OLIC PANEL ) protein, total 6.1 g/dL 6.4-8. 3 low Not Available [facility] (Lab) [address] [facility], [place], [address], 08/05/2025 13:39:18 08/04/20 25 08/04/2025 CMP(C OMPRE HENSI VE METAB OLIC PANEL ) albumin 3.5 g/dL 3.5-5. 0 Not Available [facility] (Lab) [address] [facility], [place], [address], 08/05/2025 13:39:18 08/04/20 25 08/04/2025 CMP(C OMPRE HENSI VE METAB OLIC PANEL ) ALT 11 units /L 9-43 Not Available [facility] (Lab) [address] [facility], [place], [address], 08/05/2025 13:39:18 08/04/20 25 08/04/2025 CMP(C OMPRE HENSI VE METAB OLIC PANEL ) alkaline phosphatase 98 units /L 34-104 Not Available [facility] (Lab) [address] [facility], [place], [address], 08/05/2025 13:39:18 08/04/20 25 08/04/2025 CMP(C OMPRE HENSI VE METAB OLIC PANEL ) AST 15 units /L 13-39 Not Available [facility] (Lab) [address] [facility], [place], [address], 08/05/2025 13:39:18 08/04/20 25 08/04/2025 CMP(C OMPRE HENSI VE METAB OLIC PANEL ) bilirubin, total 0.3 mg/dL 0.2-1. 2 Not Available [facility] (Lab) [address] [facility], [place], [address], 08/05/2025 13:39:18 08/04/20 25 08/04/2025 BILE ACIDS , TOTAL bile acids, total 4 umol/ L 0-10 Test Perfo rmed by: [facility] [address] [address] Not Available [facility] (Lab) [address] [facility], [place], [address], 08/05/2025 13:39:19 03/02/20 25 03/02/2025 US, obste tric, nucha l trans lucen cy No observ ation record ed. [email or web address] [facility] [address], [place], [address], 03/02/2025 13:35:30 03/02/20 25 03/02/2025 US, obste tric, nucha l trans lucen cy No observ ation record ed. [email or web address] [address] [address], [place], [address], 03/03/2025 14:08:39 03/08/20 25 03/08/2025 US, obste tric, 1st trime ster No observ ation record ed. [email or web address] [facility] [address], [place], [address], 03/08/2025 12:22:22 03/08/20 25 03/08/2025 US, obste tric, 1st trime ster No observ ation record ed. [email or web address] [address], [place], [address], 03/10/2025 15:03:13 04/01/20 25 03/24/2025 [email or web address] r monit or No observ ation record ed. [address] [facility], [place], [address], 04/08/2025 12:36:45 04/01/20 25 03/22/2025 qamar r monit or No observ ation record ed. [address] (Pulmonary) [address] [place] [address] [address], [address], 04/06/2025 08:59:34 04/20/20 25 04/20/2025 US, obste tric, limit ed No observ ation record ed. [email or web address] [facility] [address], [place], [address], 04/20/2025 17:39:30 04/20/20 25 04/20/2025 US, obste tric, follo w-up No observ ation record ed. [email or web address] [address], [place], [address], 04/23/2025 08:32:54 04/28/20 25 04/28/2025 US, obste tric, 2nd or 3rd trime ster No observ ation record ed. [email or web address] [facility] [address], [place], [address], 04/28/2025 17:48:42 04/28/20 25 04/28/2025 US, obste tric, 2nd or 3rd trime ster No observ ation record ed. [email or web address] [address], [place], [address], 05/04/2025 22:16:11 05/07/2005/07/2025 non-s tress test No observ ation record ed. [email or web address] [place] [address] [address], [place], [address], 05/28/2025 13:33:54 05/21/2005/21/2025 CT, head + brain , w/o contr ast No observ ation record ed. [email or web address], [place], [address], 05/24/2025 13:48:57 05/28/2005/28/2025 US, obste tric, follo w-up No observ ation record ed. [email or web address] [address], [place], [address], 05/28/2025 17:32:34 05/28/2005/28/2025 US, obste tric, follo w-up No observ ation record ed. [address], [place], [address], 06/01/2025 15:13:13 06/08/20 25 06/07/2025 US, obste tric, follo w-up No observ ation record ed. [email or web address] [facility] [address] [facility] [place], [address], 06/15/2025 10:53:46 07/07/20 25 07/07/2025 US, obste tric, follo w-up No observ ation record ed. [email or web address] [facility] [address], [place], [address], 07/07/2025 13:18:01 07/07/20 25 07/07/2025 US, obste tric, follo w-up No observ ation record ed. [email or web address] [address], [place], [address], 07/07/2025 11:29:37 08/04/20 25 08/04/2025 US, obste tric, follo w-up No observ ation record ed. [email or web address] [facility] [address], [place], [address], 08/04/2025 15:08:50 08/04/2008/04/2025 US, obste tric, follo w-up No observ ation record ed. [email or web address] [address], [place], [address], 08/06/2025 10:41:50 08/11/2008/11/2025 non-s tress test No observ ation record ed. [email or web address] [facility] [address], [place], [address], 08/11/2025 17:37:52 08/11/20 non-s tress test No observ ation record ed. [email or web address] [facility] [address], [place], [address], 08/11/2025 17:38:11 08/15/2008/15/2025 non-s tress test No observ ation record ed. [address], [place], [address], 08/21/2025 10:18:57 08/15/2008/15/2025 US, obste tric, bioph ysica l profi le No observ ation record ed. [place] [address] [facility] [address], [place], [address], 08/17/2025 10:50:53 08/18/2008/18/2025 US, obste tric, bioph ysica l profi le + non-s tress test No observ ation record ed. [email or web address] [facility] [address], [place], [address], 08/18/2025 10:21:39 08/18/2008/18/2025 US, obste tric, bioph ysica l profi le + non-s tress test No observ ation record ed. [email or web address] [address], [place], [address], 08/18/2025 10:35:44 08/18/2008/18/2025 non-s tress test No observ ation record ed. [email or web address] [facility] [address], [place], [address], 08/18/2025 17:34:03 08/18/20 non-s tress test No observ ation record ed. [email or web address] [facility] [address], [place], [address], 08/18/2025 16:06:09 08/25/20 25 08/25/2025 US, obste tric, bioph ysica l profi le + non-s tress test No observ ation record ed. [email or web address] [facility] [address], [place], [address], 08/25/2025 18:52:06 08/25/2008/25/2025 US, obste tric, follo w-up No observ ation record ed. [email or web address] [address], [place], [address], 08/25/2025 15:47:28 08/25/2008/25/2025 non-s tress test No observ ation record ed. [email or web address] [address], [place], [address], 08/25/2025 18:12:15 08/25/20 non-s tress test No observ ation record ed. [email or web address] [address], [place], [address], 08/25/2025 17:21:19 08/30/2008/30/2025 non-s tress test No observ ation record ed. [email or web address] [address], [place], [address], 09/15/2025 15:26:49 09/01/20 25 09/01/2025 non-s tress test No observ ation record ed. [place] [id number] [facility] [address], [place], [address], 09/13/2025 11:32:22 09/01/2009/01/2025 [place], obste tric No observ ation record ed. [place] [id number] [facility] [address], [place], [address], 09/02/2025 15:56:01 09/01/20 25 09/01/2025 non-s tress test No observ ation record ed. [email or web address], [place], [address], 09/02/2025 14:32:38 09/16/20 25 09/16/2025 CT, angio gram, head + neck, w/ contr ast No observ ation record ed. [email or web address] [facility] [address], [place], [address], 09/16/2025 20:01:05 09/28/20 25 09/28/2025 non-s tress test No observ ation record ed. [email or web address] [facility] [address], [place], [address], 10/04/2025 16:42:40 Result Notes None recorded. Problems Name Problem SNOMED Code Status Onset Date Resolution Date Notes Provider Name and Address Organization Details Recorded Time Hypereme sis [id number] Completed phenerga n now prn Asia ramos [facility] 2 16:43:51 Anxiety in pregnanc y [id number] Completed will continue to monitor [place] ramos [facility] 2 16:43:51 Past pregnanc y history of gestatio nal diabetes mellitus [id number] Completed Early 1 hr GTT @ 20wks 11/03 APPT Asia ramos [facility] 2 16:43:51 Spinal muscular atrophy 7714136 Completed Carrier - Not in contact with FOB. Asia ramos [facility] 2 16:43:51 Anxiety 40603819 Completed prozac Karina ramos [facility] 4 11:00:46 Nausea 471793957 Completed d/c zofran pump 11/08 per pt request Karina ramos [facility] 4 11:00:46 Postpart um hemorrha ge [id number] Completed 2017 with d&c Karina ramos [facility] 4 11:00:46 Normal pregnanc y in multigra jessy [id number] 92248 Completed 201907/05/2021 Encounte r for supervis ion of other normal pregnanc y, 3rd trimeste r;Record ed Elsewher e: No [facility] S ource: EHR Kiln Tender yvrose: N Practi ce ID: 0001 Gigi lable Time: 10:45:00 AM Karina ramos [facility] 1 10:15:27 Gestatio n period, 37 weeks 46294545 Completed 201907/05/2021 37 weeks gestatio n of pregnanc y;Record ed Elsewher e: No Locat ion: [facility] S ource: EHR Kiln Tender yvrose: N Natalyati ce ID: 0001 Gigi lable Time: 09:00:00 AM Karina ramos [facility] 1 10:15:[address] Concept Completed 201907/05/2021 Matern care for abnlt fetl hrt rate or rhym, 3rd tri, unsp;Rec orded Elsewher e: No Locat ion: [facility] S ource: EHR Kiln Tender yvrose: N Practi ce ID: 0001 Gigi lable Time: 08:45:00 AM Karina ramos [facility] 1 10:15:29 Gestatio nal diabetes mellitus 05246358 Completed 201907/05/2021 Gestatio nal diabetes mellitus in pregnanc y, diet controll ed;Recor ded Elsewher e: No Locat ion: [facility] S ource: EHR Kiln Tender yvrose: N Practi ce ID: 0001 Gigi lable Time: 11:45:00 AM Karina ramos [facility] 1 10:15:25 Gestatio n period, 38 weeks 71051642 Completed 201907/05/2021 38 weeks gestatio n of pregnanc y;Record ed Elsewher e: No Locat ion: [facility] S ource: EHR Kiln Tender yvrose: N Practi ce ID: 0001 Gigi lable Time: 11:30:00 AM Karina ramos, [facility] 10:15:13 Amenorrh ea 75700797 Completed 202007/10/2021 Tammi Jones null, [facility] 13:08:35 Pregnanc y 49751828 Completed 202003/29/2022 Emma Dykes [facility], [facility] 12:28:48 Pregnanc y 42317212 Completed 202304/22/2024 Emma Dykes [facility], [facility] 12:28:48 Headache 47203357 Active 2023 Karina Burroughs null, [facility] 16:19:28 Pregnanc y 64711553 Completed 202309/14/2025 Emma Dykes [facility], [facility] 12:28:48 Uncompli cated moderate persiste nt asthma 282619545 Completed 2024 albutero l prn Shawn Bradley MD [address], [place], [address], [facility] 13:08:36 Anxiety 01575798 Completed 2024 sertrali ne started 03/02/25 changed to prozac 10 on Shawn Bradley MD [address], [place], [address], [facility] 5 17:05:48 Nausea and vomiting 77285902 Completed 2024 Shawn Bradley MD [address], [place], [address], [place] [facility] 5 13:20:27 Placenta circumva llata 9317978 Completed 2024 32wk growth [facility] 09:44:35 Frequent headache 869271966 Completed 2024 transpor t to [facility] 05/21, discharg e 05/23 MFM referral faxed 05/24 [facility] pending per KAJAL Pittman [facility] unable [facility] see pt [...] more than 2-3 times a week. [facility] 5 10:55:26 Abnormal placenta affectin g manageme nt of mother 48998943 Completed 2024 MCI serial growth [facility] 10:46:25 Iron deficien cy anemia 24935687 Completed 2024 [facility] MFM tx venofer 200mg x1 HGB 10.6 [facility] 5 15:21:25 Gestatio nal diabetes mellitus 68224963 Completed 2024 checking bs QID - ruled in GDM Referral faxed to [facility] 07/07 Ryann Castro [facility] 5 14:36:52 Notes:[facility] for P[facility] line, and home health already caring for pt. Vladimir RDZ at [phone] Problem Notes None recorded. Procedures Surgical History Date Name Laterality Status Provider Name and Address Organization Details Recorded Time 025 SALPINGECTOMY, LAPAROSCOPIC (SURG) completed Not Available [facility] 09/06/2025 11:19:17 025 Date of Last Pap Smear completed Karina Burroughs [facility] 01/28/2025 11:19:42 024 Nexplanon Removal completed Shawn Bradley MD [address], [place], [address], [facility] 08/05/2024 15:09:58 024 Control Implant Insertion completed Anju Mcnamara CNM [address], [place], [address], [facility] 05/08/2024 17:59:34 024 cholecystectomy completed Karina Burroughs [facility] 03/31/2025 09:18:57 018 Dilation and Curettage completed Karina Burroughs [facility] 07/05/2021 10:17:50 Imaging Results None recorded. Procedure Notes None recorded. Medical Equipment None Reported. Allergies Allergen ID Allergen Name Allergen Category Reaction Reaction Severity Criticality Documentation Date Start Date Code Code System Note Provider Name and Address Organization Details Recorded Time 78217 terbutali ne medicatio n anaphylax is Not available Not available 01/27/20252021 83887 RxNorm Karina Burroughs [facility] 16:19:27 20930 amoxicill in medicatio n Not available Not available Not available 09/10/2025 723 RxNorm Not Available gene - External Data Service - prod 16:39:37 91668 terbinafi ne medicatio n anaphylax is Not available [facility] 09/10/20252024 88306 RxNorm Not Available gene [employer] External Data Service - prod 16:40:54 Medications Name Sig Start Date Stop Date Status Note LastModified by Organization Details LastModified Time nifedipin e ER 30 mg tablet,ex tended release 24 hr TAKE 2 TABLETS BY MOUTH ONCE DAILY active Not Available Not Available No t Available methocarb isabel 500 mg tablet 01/14 completed [...] MOUTH THREE TIMES DAILY FOR 10 DAYS active Not Available Not Available No t Available cetirizin e 10 mg tablet TAKE [...] 1 TABLET BY MOUTH EVERY 6 HOURS 09/20 completed Not Available Not Available Not Available [...] Not Available sertralin e 100 mg tablet TAKE 1 TABLET BY MOUTH ONCE DAILY active Not Available Not Available No t Available terconazo le 0.8 % vaginal cream [...] completed Not Available Not Available Not Available hydralazi ne 25 mg tablet TAKE 1 TABLET BY MOUTH EVERY 6 HOURS NEEDED active Not Available Not Available No t Available metronida zole 500 mg tablet TAKE [...] Not Available lamotrigi ne 25 mg tablet TAKE 2 TABLETS BY MOUTH TWICE DAILY active Not Available Not Available No t Available nystatin- triamcino lone 100,000 unit/gram -0.1 [...] Not Available No t Available famotidin e 20 mg tablet TAKE 1 TABLET BY MOUTH TWICE DAILY FOR 10 DAYS 09/20 completed Not Available Not Available Not Available [...] CAPSULE BY MOUTH THREE TIMES DAILY FOR 7 DAYS active Not Available Not [...] TAKE 1 CAPSULE BY MOUTH TWICE DAILY 09/20 completed Not Available Not Available Not Available [...] TAKE 1 TABLET BY MOUTH ONCE DAILY 09/20 completed Not Available Not Available Not Available [...] Available Not Available Not Available escitalop gary 5 mg tablet TAKE 1 TABLET BY MOUTH ONCE DAILY active Not Available Not Available No t Available nitrofura ntoin monohydra te/macroc rystals 100 mg capsule TAKE 1 CAPSULE BY MOUTH TWICE DAILY FOR 5 DAYS 09/20 completed Not Available Not Available Not Available active Not Available Not Avai lable Not Available Symbicort 80 mcg-4.5 mcg/actua tion HFA aerosol inhaler INHALE 2 PUFFS BY MOUTH TWICE DAILY active Not Available Not Available No t Available FeroSul 325 mg (65 mg iron) tablet TAKE 1 TABLET BY MOUTH ONCE DAILY 09/20 completed Not Available Not Available Not Available ferrous sulfate 15 mg iron (75 mg)/mL oral drops 07/05 completed Prescrib ed Elsewher e: Yes Loca tion: [facility] odify By: prabhjot Lee r [...] n (supplie d by office) insert lot [id number] Exp 01/2026 Not Available Not Available Not Available 28 mg iron-800 mcg tablet 07/05 completed Prescrib ed Elsewher e: Yes Loca tion: [facility] M odify By: prabhjot Lee r DateTime : 01/14/20 10:45:00 AM Not Available Not Available Not Available lidocaine 5 % topical ointment APPLY OINTMENT EXTERNAL LY TO RIBS THREE TIMES DAILY NEEDED 01/14 completed Not Available Not Available Not Available 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 09/20 completed Not Available Not Available Not Available potassium chloride ER 20 mEq tablet,ex tended [...] Updated DateTime 08/04/2025 162.56 cm 31.1 kg/m2 60674.22 g 112/71 mm[Hg] Toya Perkins [facility] 08/04/2025 15:09:59 Social History Question Answer Notes LastModified by Organizat ion Details LastModified Time Tobacco Smoking Status Former Smoker Karina ramos, [facility] 07/05/2021 09:06:21 If You Are , What Was Your Level Of Alcohol Consumption Prior To ? Occasional [email or web address] Information not available 03/31/2025 Are You Blind Or Do You Have Difficulty Seeing? No [email or web address] Information not available 07/05/2021 What Is Your Level Of Caffeine Consumption? Heavy [email or web address] Information not available 07/05/2021 In The 14 Days Before Symptom Onset, Have You Had Close Contact With A Laboratory-confir med COVID-19 While That Case Was Ill? No [email or web address] Information not available 07/05/2021 In The 14 Days Before Symptom Onset, Have You Had Close Contact With A Person Who Is Under Investigation For COVID-19 While That Person Was Ill? No [email or web address] Information not available 07/05/2021 Have You Been To An Area Known To Be High Risk For COVID-19? No [email or web address] Information not available 07/05/2021 Are You Deaf Or Do You Have Serious Difficulty Hearing? No [email or web address] Information not available 07/05/2021 What Type Of Diet Are You Following? REGULAR [email or web address] Information not available 07/05/2021 Which Illicit Or Recreational Drugs Have You Used? Marijuana [email or web address] Information not available 07/05/2021 Have You Ever Been Counseled For Unhealthy Alcohol Use? No [email or web address] Information not available 07/05/2021 Do You Use Your Seat Belt Or Car Seat Routinely? Yes [email or web address] Information not available 07/05/2021 Do You Have Smoke And Carbon Monoxide Detectors In Your Home? Yes [email or web address] Information not available 07/05/2021 Do You Use Sunscreen Routinely? Yes [email or web address] Information not available 07/05/2021 Has Tobacco Cessation Counseling Been Provided? No Information not available 07/05/2021 Have You Used IV Drugs? No [email or web address] Information not available 07/05/2021 Do You Have Difficulty Walking Or Climbing Stairs? No [email or web address] Information not available 12/06/2021 Sex: Unknown Functional Status Question Answer Note LastModified by Organizat ion Details LastModified Time Do you use any illicit or recreational drugs? Yes [email or web address] Information not available 07/05/2021 Do you or have you ever used any other forms of tobacco or nicotine? Yes [email or web address] Information not available 07/05/2021 What is your level of alcohol consumption? None [email or web address] Information not available 03/31/2025 Do you or have you ever used smokeless tobacco? Never used smokeless tobacco [email or web address] Information not available 07/05/2021 Are you able to walk independently without assistance or assistive devices? YESWOREST Information not available 07/05/2021 Are you able to care for yourself independently? Yes [email or web address] Information not available 12/06/2021 Do you have difficulty dressing, bathing, grooming, or toileting? No [email or web address] Information not available 12/06/2021 Do you or have you ever used e-cigarettes or vape? Current user of electronic cigarettes [email or web address] Information not available 07/05/2021 What is your exercise level? Occasional [email or web address] Information not available 07/05/2021 Mental Status Question Answer Note LastModified by Organization D etails LastModified Time Do you feel stressed (tense, restless, nervous, or anxious, or unable to sleep at night)? 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 Z3A.30 8926749 [id number] Anju Mcnamara CNM [facility] [address],[place] [address] 07/07/2025 10:14:33 07/07/2025 11:38:54 Gestation period, 30 weeks 86381778 Z3A.30 4857128 cont pnv Nausea 225947794 R11.0 75450 Gestationa l diabetes mellitus 24231335 O24.419 34814332 [id number] Anju Mcnamara CNM [facility] [address] [place] [address] 07/21/2025 09:28:54 07/21/2025 12:36:06 Pain in pelvis 60334171 R10.2 978387 Gestation period, 32 weeks 6415576 Z3A.32 3672129 [id number] Shawn Bradley MD [facility] [address] [place] [address] 08/04/2025 14:02:59 08/04/2025 15:06:33 Gestational diabetes mellitus 71206657 O24.410 O43.103 O43.113 Z3A.34 65303070 [id number] Anju Mcnamara CNM [facility] [address] [address] 08/04/2025 14:21:57 08/04/2025 15:26:03 Gestation period, 34 weeks 23073428 Z3A.34 3115456 Pruritic d isorder of skin 0534471781 L29.9 69277 plan labs today, ursadiol BID Health Concerns Section Related Observation LastModified by Organization Detai ls LastModified Time None Recorded Concern Status LastModified by Organization Details LastModified Time None Recorded Payers Encounter Date Sequence Insurance Name Policy Number Policy Roberts Covered Member ID Roberts Member ID Guarantor Name 08/04/2025 1 [facility] (MEDICAID HMO) [id number] Yuni Mejia [id number] Yuni Mejia Notes Date Note Type Note Provider Name and Address Organization Details Recorded Time 08/04/2025 text/html Generic HPI TemplateReported by Patient Anju Mcnamara CNM [address], [place], [address], [facility] 08/04/2025 15:23:50 OBGyn Episode Ob Episode Information Episode Created Date Number of Fetuses Patient Bloodtype Patient rh Status Prepregnancy Weight lbs Domestic Partner Domestic Partner Phone Father Name Rn Or Lpn Status 03/02/20 25 1 B Positive 164 CLOSED Fetus Data First Name Last Name Admitted to NICU Weight (g) Sex Living Outcome Pediatric Complications Fetus ID Race Codes Race Delivery Type Ziah false 4025.62 9 F true Full Term 28537 Vaginal Delivery Problems Problem Notes SDH form completed 5GI consult Tachycardia Holter monitor 72 order- pt sent back on 03-27-25 Cardiology referral faxed per Dr Martínez office calling pt 04/21 to schedule consult scheduled 05/11 11:15AM Problem Name Start Date End Date Resolution Snomed Code Not e Uncomplicated moderate persistent asthma 03/02/2025 739684618 albuterol prn Abnormal placenta affecting management of mother 05/04/2025 21891201 [facility]CI serial grow th us Iron deficiency anemia 05/25/2025 30519729 [facility] tx [place] 200mg x1 HGB 10.6 Nausea and vomiting 03/02/2025 57387572 Anxiety 03/02/2025 57525497 sertralin e started 03/02/25 changed to prozac 10 on Gestational diabetes mellitus 07/08/2025 92245387 checking bs QID - ruled in GDM Referral faxed to [facility] 07/07 Frequent headache 05/03/2025 [id number] [place] to [facility] 05/21, discharge 05/23 MFM referral faxed 05/24 [facility] Neurology consult pending per KAJAL Pittman [facility]- Neuro [facility] unable to see pt due to insurance 05/[facility] 07/05/25 Level US & Consult (see MF consult zayas recommendations ) regimen prn Imitrex 50mg for acute migraine, vitamin B2 (Riboflavin) 400mg, Coenzyme q10 300mg and magnesium oxide 200 to 600mg daily. minimize use of Excedrin or Tylenol to no more than 2-3 times a week. 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 went to ed exam done cultures and rx sent, ?FM, await director cardiac results rfilled zofran, precautions and education f/u [...] Type Weight in lbs Pre/Post Dialysis Refused 168.531466442264 BP Diastolic BP Location Tested BP Systolic [...] Type Weight in lbs Pre/Post Dialysis Refused 169.920009353435 BP Diastolic BP Location Tested BP Systolic [...] Weight in lbs Pre/Post Dialysis Refused Weight 175.447596510019 BP Diastolic BP Location Tested BP Systolic [...] Weight in lbs Pre/Post Dialysis Refused Weight 182.399039887329 BP Diastolic BP Location Tested BP Systolic [...] Weight in lbs Pre/Post Dialysis Refused Weight 181.090975762649 BP Diastolic BP Location Tested BP Systolic BP Type 73 L arm 131 sitting Fetus Heart Rate Present Fetus Movement A Yes Comments viral URI testied neg at urg ent care, nausea resolved, efw 68%, +FM plan education and precautions f/u 2 weeks diagnosed GDM, plan manager oncology, gave list reviewed protein vs carb Flowsheet Date 07/21/2025 Gibson Score Blood Edema Fundus Height Fundus Units Glucose Ketones Leukocytes Nitrite Labor Signs Protein Cervic Dilation Cervic Effacement Cervic Station Type Weight in lbs Pre/Post Dialysis Refused Weight 181.256863346799 BP Diastolic BP Location Tested BP Systolic BP Type 78 L arm 127 sitting Fetus Heart Rate Present A 150 Fetus Movement A Yes Comments rpt urine culture +FM review ed blood sugars, meets with manager oncology today, precautions and education f/u 2 weeks [...] Weight in lbs Pre/Post Dialysis Refused Weight 181.801431704008 BP Diastolic BP Location Tested BP Systolic [...] Weight in lbs Pre/Post Dialysis Refused Weight 183.604149999475 BP Diastolic BP Location Tested BP Systolic [...] Type Weight in lbs Pre/Post Dialysis Refused 184.590393985304 BP Diastolic BP Location Tested BP Systolic [...] Type Weight in lbs Pre/Post Dialysis Refused 184.350580984839 BP Diastolic BP Location Tested BP Systolic [...] Type Weight in lbs Pre/Post Dialysis Refused 184.226244268520 BP Diastolic BP Location Tested BP Systolic [...] Weight in lbs Pre/Post Dialysis Refused Weight 184.639803582794 BP Diastolic BP Location Tested BP Systolic [...] Weight in lbs Pre/Post Dialysis Refused Weight 164.194428293103 BP Diastolic BP Location Tested BP Systolic [...]
--- OUTSIDE RECORDS SUMMARY | 2025-10-27 12:09 | XMS_ITS | Continuity of Care Document ---
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 Name Role Phone SEAN CARLOS Primary Care [...] Not Available [facility] [address], [place], [address], 03/06/2025 03:58:26 03/06/20 25 03/06/2025 [UNIT Y] ANEUP LOIDY NIPT sex chromosome aneuploidy NOT DETECT ED normal Not Available [facility] [address], [place], [address], 03/06/2025 03:58:26 03/06/20 25 03/06/2025 [UNIT Y] ANEUP LOIDY NIPT monosomy X LOW RISK <1 in 10,000 normal Not Available [facility] [address], [place], [address], 03/06/2025 03:58:26 03/06/20 25 03/06/2025 [UNIT Y] ANEUP LOIDY NIPT trisomy 13 LOW RISK <1 in 10,000 normal Not Available [facility] [address], [place], [address], 03/06/2025 03:58:26 03/06/20 25 03/06/2025 [UNIT Y] ANEUP LOIDY NIPT trisomy 18 LOW RISK <1 in 10,000 normal Not Available [facility] [address], [place], [address], 03/06/2025 03:58:26 03/06/20 25 03/06/2025 [UNIT Y] ANEUP LOIDY NIPT trisomy 21 LOW RISK <1 in 10,000 normal Not Available [facility] [address], [place], [address], 03/06/2025 03:58:26 03/06/20 25 03/06/2025 [UNIT Y] ANEUP LOIDY NIPT sex FEMALE normal Not Available [facility] [address], [place], [address], 03/06/2025 03:58:26 03/06/20 25 03/06/2025 [UNIT Y] ANEUP LOIDY NIPT gestation SINGLE TON normal Not Available [facility] [address], [place], [address], 03/06/2025 03:58:26 03/06/20 25 03/06/2025 [UNIT Y] ANEUP LOIDY NIPT for detailed report, see pdf See PDF normal Not Available [facility] [address], [place], [address], 03/06/2025 03:58:26 03/02/20 25 03/02/2025 CULTU RE: URINE result report SEE RESULT S BELOW Test: Cultu re: Urine Speci men Sourc e: Urine - Clean Catch Speci men Type: Urine Speci men Date: 025 1455 Resul t Date: 2138 Resul t Statu s: Final resul t Abnor mal: No Resul ting Lab: [facility] [address] [facility] [address] Tel: CULTU RE ----- ----- ----- --- No growt h in 1 day (dete ction level of 10,00 0 colon ies / ml.) Not Available [facility] (Lab) [address] [facility], [place], [address], 03/03/2025 22:42:27 03/12/2003/12/2025 CULTU RE: URINE result report SEE RESULT S BELOW Test: Cultu re: Urine Speci men Sourc e: Urine - Clean Catch Speci men Type: Urine Speci men Date: 2024 1600 Resul t Date: 2024 0610 Resul t Statu s: Final resul t Abnor mal: No Resul ting Lab: [facility] [address] [facility] [address] Tel: CULTU RE ----- ----- ----- --- No growt h in 1 day (dete ction level of 10,00 0 colon ies / ml.) Not Available [facility] (Lab) [address] [facility], [place], [address], 03/14/2025 07:15:03 03/12/2003/12/2025 urina lysis , dipst ick Leukocytes ++ Not Available [address], [place], [address], 03/12/2025 16:45:06 03/12/2003/12/2025 urina lysis , dipst ick Protein + Not Available [place] [address], [place], [address], 03/12/2025 16:45:06 03/12/20 25 03/12/2025 urina lysis , dipst ick pH 5 Not Available [place] [address], [place], [address], 03/12/2025 16:45:06 03/12/20 25 03/12/2025 urina lysis , dipst ick Blood trace Not Available [place] [address], [place], [address], 03/12/2025 16:45:06 03/12/20 25 03/12/2025 urina lysis , dipst ick Specific [place] 1.015 Not Available [facility] [address], [place], [address], 03/12/2025 16:45:06 03/12/20 25 03/12/2025 urina lysis , dipst ick Ketone +++ Not Available [place] [address], [place], [address], 03/12/2025 16:45:06 03/31/20 25 03/31/2025 TSH, REFLE X FREE T4 TSH 0.42 uIU/m L 0.30-[address] [facility] (Lab) [address] [facility], [place], [address], 04/01/2025 03:05:12 03/31/20 25 03/31/2025 CULTU RE: URINE result report SEE RESULT S BELOW Test: Cultu re: Urine Speci men Sourc e: Urine Voide d Speci men Type: Urine Speci men Date: 1710 Resul t Date: 2256 Resul t Statu s: Final resul t Abnor mal: No Resul ting Lab: [facility] [address] [facility] [address] Tel: CULTU RE ----- ----- ----- --- Cultu re resul t (>=3 organ isms prese nt) indic ates possi ble conta minat ion. Repea t cultu re if sympt oms indic ate. Not Available [facility] (Lab) [address], [place], [address], 04/01/2025 23:59:19 03/31/20 25 03/31/2025 urina lysis , dipst ick Leukocytes +1 [facility] Available [facility] [address], [place], [address], 03/31/2025 09:23:13 03/31/20 25 03/31/2025 urina lysis , dipst ick Nitrite normal Not Available [place] [address], [place], [address], 03/31/2025 09:23:13 03/31/20 25 03/31/2025 urina lysis , dipst ick Urobilinogen normal Not Available [facility] david [address], [place], [address], 03/31/2025 09:23:13 03/31/20 25 03/31/2025 urina lysis , dipst ick Protein trace Not Available [place] [address], [place], [address], 03/31/2025 09:23:13 03/31/20 25 03/31/2025 urina lysis , dipst ick pH 5 Not Available [place] [address], [place], [address], 03/31/2025 09:23:13 03/31/20 25 03/31/2025 urina lysis , dipst ick Specific [place] 1.020 [facility] Available [facility] [address], [place], [address], 03/31/2025 09:23:13 03/31/20 25 03/31/2025 urina lysis , dipst ick Ketone normal Not Available [place] [address], [place], [address], 03/31/2025 09:23:13 03/31/20 25 03/31/2025 urina lysis , dipst ick Bilirubin normal Not Available [facility] anna [address], [place], [address], 03/31/2025 09:23:13 03/31/20 25 03/31/2025 urina lysis , dipst ick Glucose normal Not Available [place] [address], [place], [address], 03/31/2025 09:23:13 03/31/20 25 03/31/2025 urina lysis , dipst ick Appearance normal Not Available [facility] [address], [place], [address], 03/31/2025 09:23:13 03/31/20 25 03/31/2025 urina lysis , dipst ick Color normal Not Available [place] [address], [place], [address], 03/31/2025 09:23:13 04/01/20 25 04/01/2025 [facility], DENIS bacterial vaginosis (bv), tma Negati ve negati ve Not Available [facility] (Lab) [address] [place], [address], 04/02/2025 14:08:45 04/01/20 25 04/01/2025 [facility], DENIS mekhi species, tma Negati ve negati ve Not Available [facility] (Lab) [address] [place], [address], 04/02/2025 14:08:45 04/01/20 25 04/01/2025 [facility] SWAB PLUS, DENIS mekhi glabrata, tma Negati ve negati ve Not Available [facility] (Lab) [address] [place], [address], 04/02/2025 14:08:45 04/01/20 25 04/01/2025 [facility] SWAB PLUS, DENIS trichomonas vaginalis, tma Negati ve negati ve Not Available [facility] (Lab) [address] [place], [address], 04/02/2025 14:08:45 04/01/20 25 04/01/2025 [facility] SW[facility], DENIS chlamydia trachomatis, PCR Negati ve negati ve Not Available [facility] (Lab) [address] [place], [address], 04/02/2025 14:08:45 04/01/20 25 04/01/2025 [facility] SWAB PLUS, DENIS neisseria [...] in this panel . Not Available [facility] (Lab) [address] , [place], [address], 04/02/2025 14:08:45 04/22/2004/22/2025 CULTU RE: URINE result report SEE RESULT S BELOW Test: Cultu re: Urine Speci men Sourc e: Urine Voide d Speci men Type: Urine Speci men Date: 2024 1314 Resul t Date: 2024 0322 Resul t Statu s: Final resul t Abnor mal: No Resul ting Lab: [facility] [address] [facility] [address] Tel: CULTU RE ----- ----- ----- --- No growt h in 1 day (dete ction level of 10,00 0 colon ies / ml.) Not Available [facility] (Lab) [address], [place], [address], 04/24/2025 04:28:01 04/22/20 25 04/22/2025 urina lysis , dipst ick Leukocytes + Not Available [address], [place], [address], 04/22/2025 10:01:51 04/22/20 25 04/22/2025 urina lysis , dipst ick Protein + Not Available [place] [address], [place], [address], 04/22/2025 10:01:51 04/22/20 25 04/22/2025 urina lysis , dipst ick pH 8 Not Available [place] [address], [place], [address], 04/22/2025 10:01:51 04/22/20 25 04/22/2025 urina lysis , dipst ick Blood + Not Available [place] [address], [place], [address], 04/22/2025 10:01:51 04/22/20 25 04/22/2025 urina lysis , dipst ick Specific [place] 1.010 Not Available [facility] [address], [place], [address], 04/22/2025 10:01:51 04/22/20 25 04/22/2025 urina lysis , dipst ick Ketone + Not Available [place] [address], [place], [address], 04/22/2025 10:01:51 06/23/20 25 06/23/2025 HEMAT OCRIT (HCT) HCT 35.6 % (based on docume nted legal sex) 34.0-[address] [facility] (Lab) [address] [facility], [place], [address], 06/24/2025 11:45:32 06/23/20 25 06/23/2025 HEMOG LOBIN (HGB) HGB 11.1 g/dL (based on docume nted legal sex) 11.6-1 [address] [facility] (Lab) [address] [facility], [place], [address], 06/24/2025 11:45:32 06/23/20 25 06/23/2025 GTT - GESTA ROLAND L SCREE N, ACOG OB glucose, 1 hour screen 180 mg/dL 70-135 high Not Available [facility] (Lab) [address] [facility], [place], [address], 06/24/2025 11:45:33 06/23/20 25 06/23/2025 HIV 1/2 ANTIG EN/AN TIBOD Y, REFLE X CONFI RMATI ON HIV antigen/anti body Nonrea ctive nonrea ctive HIV-1 antig en and HIV-1 /HIV- 2 antib odies were not detec greg. No labor atory evide nce of HIV infec tion. Not Available [facility] (Lab) [address] [facility], [place], [address], 06/24/2025 11:45:33 06/23/20 25 06/23/2025 RPR SCREE N, REFLE X TITER /CONF IRMAT ION RPR qualitative Nonrea ctive nonrea ctive Not Available [facility] (Lab) [address] [facility], [place], [address], 06/24/2025 11:45:34 07/21/20 25 07/21/2025 CULTU RE: URINE result report SEE RESULT S BELOW Test: Cultu re: Urine Speci men Sourc e: Urine - Clean Catch Speci men Type: Urine Speci men Date: 2024 1024 Resul t Date: 2024 0252 Resul t Statu s: Final resul t Abnor mal: No Resul ting Lab: [facility] [address] [facility] [address] Tel: CULTU RE ----- ----- ----- --- No growt h in 1 day (dete ction level of 10,00 0 colon ies / ml.) Not Available [facility] (Lab) [address], [place], [address], 07/23/2025 03:57:01 07/21/2007/21/2025 urina lysis , dipst ick Leukocytes ++ Not Available [address], [place], [address], 07/21/2025 11:03:04 07/21/20 25 07/21/2025 urina lysis , dipst ick Nitrite neg Not Available [address], [place], [address], 07/21/2025 11:03:04 07/21/20 25 07/21/2025 urina lysis , dipst ick Urobilinogen neg Not Available [facility] [address], [place], [address], 07/21/2025 11:03:04 07/21/20 25 07/21/2025 urina lysis , dipst ick Protein + Not Available [place] [address], [place], [address], 07/21/2025 11:03:04 07/21/20 25 07/21/2025 urina lysis , dipst ick pH 5 Not Available [place] [address], [place], [address], 07/21/2025 11:03:04 07/21/20 25 07/21/2025 urina lysis , dipst ick Specific [place] 1.030 [facility] Available [facility] [address], [place], [address], 07/21/2025 11:03:04 07/21/20 25 07/21/2025 urina lysis , dipst ick Ketone +++ Not Available [place] [address], [place], [address], 07/21/2025 11:03:04 07/21/20 25 07/21/2025 urina lysis , dipst ick Bilirubin neg Not Available [facility] [address], [place], [address], 07/21/2025 11:03:04 07/21/20 25 07/21/2025 urina lysis , dipst ick Glucose neg Not Available [place] [address], [place], [address], 07/21/2025 11:03:04 07/21/20 25 07/21/2025 urina lysis , dipst ick Appearance cloudy Not Available [address], [place], [address], 07/21/2025 11:03:04 07/21/20 25 07/21/2025 urina lysis , dipst ick Color dark Not Available [place] [address], [place], [address], 07/21/2025 11:03:04 08/04/20 25 08/04/2025 CMP(C OMPRE HENSI VE METAB OLIC PANEL ) sodium 138 mmol/ L 133-[address] [facility] (Lab) [address] [facility], [place], [address], 08/05/2025 13:39:18 08/04/20 25 08/04/2025 CMP(C OMPRE HENSI VE METAB OLIC PANEL ) potassium 4.0 mmol/ L 3.5-5. [address] [facility] (Lab) [address] [facility], [place], [address], 08/05/2025 13:39:18 08/04/20 25 08/04/2025 CMP(C OMPRE HENSI VE METAB OLIC PANEL ) chloride 105 mmol/ L 98-[address] [facility] (Lab) [address] [facility], [place], [address], 08/05/2025 13:39:18 08/04/20 25 08/04/2025 CMP(C OMPRE HENSI VE METAB OLIC PANEL ) carbon dioxide 25 mmol/ L 21-[address] [facility] (Lab) [address] [facility], [place], [address], 08/05/2025 13:39:18 08/04/20 25 08/04/2025 CMP(C OMPRE HENSI VE METAB OLIC PANEL ) anion gap 8 mmol/ L 4-[address] [facility] (Lab) [address] [facility], [place], [address], 08/05/2025 13:39:18 08/04/20 25 08/04/2025 CMP(C OMPRE HENSI VE METAB OLIC PANEL ) blood urea nitrogen 10 mg/dL 7-25 Not Available [facility] ([facility]) [address] [facility], [place], [address], 08/05/2025 13:39:18 08/04/20 25 08/04/2025 CMP(C OMPRE HENSI VE METAB OLIC PANEL ) creatinine 0.41 mg/dL 0.60-1 [address] [facility] (Lab) [address] [facility], [place], [address], 08/05/2025 13:39:18 08/04/20 25 08/04/2025 CMP(C OMPRE HENSI VE METAB OLIC PANEL ) egfrcr (CKD-epi 2020) >90 mL/mi n/1.7 3_m2 >=[address] [facility] (Lab) [address] [facility], [place], [address], 08/05/2025 13:39:18 08/04/20 25 08/04/2025 CMP(C OMPRE HENSI VE METAB OLIC PANEL ) calcium 8.9 mg/dL 8.3-[address] [facility] (Lab) [address] [facility], [place], [address], 08/05/2025 13:39:18 08/04/20 25 08/04/2025 CMP(C OMPRE HENSI VE METAB OLIC PANEL ) glucose 116 mg/dL 70-[address] [facility] (Lab) [address] [facility], [place], [address], 08/05/2025 13:39:18 08/04/20 25 08/04/2025 CMP(C OMPRE HENSI VE METAB OLIC PANEL ) protein, total 6.1 g/dL 6.4-8. [address] [facility] (Lab) [address] [facility], [place], [address], 08/05/2025 13:39:18 08/04/20 25 08/04/2025 CMP(C OMPRE HENSI VE METAB OLIC PANEL ) albumin 3.5 g/dL 3.5-5. [address] [facility] (Lab) [address] [facility], [place], [address], 08/05/2025 13:39:18 08/04/20 25 08/04/2025 CMP(C OMPRE HENSI VE METAB OLIC PANEL ) ALT 11 units /L 9-[address] [facility] (Lab) [address] [facility], [place], [address], 08/05/2025 13:39:18 08/04/20 25 08/04/2025 CMP(C OMPRE HENSI VE METAB OLIC PANEL ) alkaline phosphatase 98 units /L 34-[address] [facility] (Lab) [address] [facility], [place], [address], 08/05/2025 13:39:18 08/04/20 25 08/04/2025 CMP(C OMPRE HENSI VE METAB OLIC PANEL ) AST 15 units /L 13-[address] [facility] ([facility]) [address] [facility], [place], [address], 08/05/2025 13:39:18 08/04/20 25 08/04/2025 CMP(C OMPRE HENSI VE METAB OLIC PANEL ) bilirubin, total 0.3 mg/dL 0.2-1. [address] [facility] ([facility]) [address] [facility], [place], [address], 08/05/2025 13:39:18 08/04/20 25 08/04/2025 BILE ACIDS , TOTAL bile acids, total 4 umol/ L 0-10 Test Perfo rmed by: Luke hernández rn [facility] [address] [facility] (Lab) [address] [facility], [place], [address], 08/05/2025 13:39:19 03/02/20 25 03/02/2025 US, obste tric, nucha l trans lucen cy No observ ation record ed. [email or web address] [place] [address], [place], [address], 03/02/2025 13:35:30 03/02/20 25 03/02/2025 US, obste tric, nucha l trans lucen cy No observ ation record ed. [email or web address] [address], [place], [address], 03/03/2025 14:08:39 03/08/20 25 03/08/2025 US, obste tric, 1st trime ster No observ ation record ed. [email or web address] [place] [address], [place], [address], 03/08/2025 12:22:22 03/08/20 25 03/08/2025 US, obste tric, 1st trime ster No observ ation record ed. [email or web address] [address], [place], [address], 03/10/2025 15:03:13 04/01/20 25 03/24/2025 qamar r monit or No observ ation record ed. [address], [address], 04/08/2025 12:36:45 04/01/20 25 03/22/2025 qamar r monit or No observ ation record ed. [address] (Pulmonary) [address] [place] [address] [place] [address], [address], 04/06/2025 08:59:34 04/20/20 25 04/20/2025 US, obstanna tric, limit ed No observ ation record ed. [email or web address] [place] [address], [place], [address], 04/20/2025 17:39:30 04/20/20 25 04/20/2025 US, obste tric, follo w-up No observ ation record ed. [email or web address] [address] [place] [address] [address], [place], [address], 04/23/2025 08:32:54 04/28/20 25 04/28/2025 US, obste tric, 2nd or 3rd trime ster No observ ation record ed. [email or web address] [place] [address], [place], [address], 04/28/2025 17:48:42 04/28/20 25 04/28/2025 US, obste tric, 2nd or 3rd trime ster No observ ation record ed. [email or web address] [address], [place], [address], 05/04/2025 22:16:11 05/07/20 25 05/07/2025 non-s tress test No observ ation record ed. [address], [place], [address], 05/28/2025 13:33:54 05/21/20 25 05/21/2025 CT, head + brain , w/o contr ast No observ ation record ed. [place] [id number] [facility] [address], [place], [address], 05/24/2025 13:48:57 05/28/20 25 05/28/2025 US, obste tric, follo w-up No observ ation record ed. [email or web address] [place] [address], [place], [address], 05/28/2025 17:32:34 05/28/20 25 05/28/2025 US, obste tric, follo w-up No observ ation record ed. [email or web address] [address], [place], [address], 06/01/2025 15:13:13 06/08/20 25 06/07/2025 US, obste tric, follo w-up No observ ation record ed. [email or web address] [facility] [address], [place], [address], 06/15/2025 10:53:46 07/07/20 25 07/07/2025 US, obste tric, follo w-up No observ ation record ed. [email or web address] [place] [address], [place], [address], 07/07/2025 13:18:01 07/07/20 25 07/07/2025 US, obste tric, follo w-up No observ ation record ed. [email or web address] [address], [place], [address], 07/07/2025 11:29:37 08/04/20 25 08/04/2025 US, obste tric, follo w-up No observ ation record ed. [email or web address] [place] [address], [place], [address], 08/04/2025 15:08:50 08/04/20 25 08/04/2025 US, obste tric, follo w-up No observ ation record ed. [email or web address] [address], [place], [address], 08/06/2025 10:41:50 08/11/20 25 08/11/2025 non-s tress test No observ ation record ed. [email or web address] [place] [address], [place], [address], 08/11/2025 17:37:52 08/11/20 non-s tress test No observ ation record ed. [email or web address] [place] [address], [place], [address], 08/11/2025 17:38:11 08/15/20 25 08/15/2025 non-s tress test No observ ation record ed. [place] [id number], [place], [address], 08/21/2025 10:18:57 08/15/2008/15/2025 US, obste tric, bioph ysica l profi le No observ ation record ed. [address], [place], [address], 08/17/2025 10:50:53 08/18/2008/18/2025 US, obste tric, bioph ysica l profi le + non-s tress test No observ ation record ed. [email or web address] [place] [address], [place], [address], 08/18/2025 10:21:39 08/18/2008/18/2025 US, obste tric, bioph ysica l profi le + non-s tress test No observ ation record ed. [email or web address] [address], [place], [address], 08/18/2025 10:35:44 08/18/2008/18/2025 non-s tress test No observ ation record ed. [email or web address] [place] [address], [place], [address], 08/18/2025 17:34:03 08/18/20 non-s tress test No observ ation record ed. [place] [address], [place], [address], 08/18/2025 16:06:09 08/25/2008/25/2025 US, obste tric, bioph ysica l profi le + non-s tress test No observ ation record ed. [email or web address] [place] [address], [place], [address], 08/25/2025 18:52:06 08/25/20 25 08/25/2025 US, obste tric, follo w-up No observ ation record ed. joelle [address], [place], [address], 08/25/2025 15:47:28 08/25/20 25 08/25/2025 non-s tress test No observ ation record ed. [email or web address] [place] [address], [place], [address], 08/25/2025 18:12:15 08/25/20 non-s tress test No observ ation record ed. [place] [address], [place], [address], 08/25/2025 17:21:19 08/30/20 25 08/30/2025 non-s tress test No observ ation record ed. [address], [place], [address], 09/15/2025 15:26:49 09/01/20 25 09/01/2025 non-s tress test No observ ation record ed. [place] [id number] [facility] [address], [place], [address], 09/13/2025 11:32:22 09/01/20 25 09/01/2025 [place], obste tric No observ ation record ed. [place] [id number] [facility] [address], [place], [address], 09/02/2025 15:56:01 09/01/20 25 09/01/2025 non-s tress test No observ ation record ed. [place] [id number] [facility] [address], [place], [address], 09/02/2025 14:32:38 11/20/09/16/2025 CT, angio gram, head + neck, w/ contr ast No observ ation record ed. [email or web address] [facility] [address], [place], [address], 09/16/2025 20:01:05 09/28/20 25 09/28/2025 non-s tress test No observ ation record ed. [email or web address] [facility] [address], [place], [address], 10/04/2025 16:42:40 Result Notes None recorded. Problems Name Problem SNOMED Code Status Onset Date Resolution Date Notes Provider Name and Address Organization Details Recorded Time Hypereme sis 969131492 Completed phenerga n now prn Asia ramos [facility] 2 16:43:51 Anxiety in pregnanc y [id number] Completed will continue to monitor Asia ramos [facility] 2 16:43:51 Past pregnanc y history of gestatio nal diabetes mellitus [id number] Completed Early 1 hr GTT @ 20wks 11/03 APPT Asia ramos [facility] 2 16:43:51 Spinal muscular atrophy 9650647 Completed Carrier - Not in contact with FOB. Asia ramos [facility] 2 16:43:51 Anxiety 28298686 Completed prozac Karina ramos [facility] 4 11:00:46 Nausea [id number] Completed d/c zofran pump 11/08 per pt request Karina ramos [facility] 4 11:00:46 Postpart um [email or web address] [id number] Completed 2017 with d&c Karina ramos [facility] 4 11:00:46 Normal pregnanc y in multigra jessy [id number] 46727 Completed 201907/05/2021 Encounte r for supervis ion of other normal pregnanc y, 3rd trimeste r;Record ed Elsewher e: No Locat ion: [facility] S ource: EHR Engineer Intern yvrose: N Dennis ce ID: 0001 Gigi lable Time: 10:45:00 AM Karina ramos, [facility] 10:15:27 Gestatio n period, 37 weeks [id number] Completed 201907/05/2021 37 weeks gestatio n of pregnanc y;Record ed Elsewher e: No Locat ion: [facility] S ource: EHR Engineer Intern yvrose: N Natalyati ce ID: 0001 Gigi lable Time: 09:00:00 AM Karina ramos, [facility] 10:15:[address] Concept Completed 201907/05/2021 Matern care for abnlt fetl hrt rate or rhym, 3rd tri, unsp;Rec orded Elsewher e: No Locat ion: [facility] S ource: EHR Engineer Intern yvrose: N Natalyati ce ID: 0001 Gigi lable Time: 08:45:00 AM Karina ramos [facility] 10:15:29 Gestatio nal diabetes mellitus 27497557 Completed 201907/05/2021 Gestatio nal diabetes mellitus in pregnanc y, diet controll ed;Recor ded Elsewher e: No Locat ion: [facility] S ource: EHR Engineer Intern yvrose: N Natalyati ce ID: 0001 Gigi lable Time: 11:45:00 AM Karina ramos [facility] 10:15:25 Gestatio n period, 38 weeks 90048098 Completed 201907/05/2021 38 weeks gestatio n of pregnanc y;Record ed Elsewher e: No Locat ion: Jaelyn castillo [facility] S ource: EHR Engineer Intern yvrose: N Practi ce ID: 0001 Gigi lable Time: 11:30:00 AM Karina ramos, [facility] 10:15:13 Amenorrh ea 40419490 Completed 202007/10/2021 Tammi Jones null, [facility] 13:08:35 Pregnanc y 21432571 Completed 202003/29/2022 Emma Dykes null, [facility] 12:28:48 Pregnanc y 86992276 Completed 202304/22/2024 Emma Dykes null, [facility] 12:28:48 Headache 38518850 Active 2023 Karina Burroughs null, [facility] 16:19:28 Pregnanc y 01151486 Completed 202309/14/2025 Emma Elkinsfredi null, [facility] 12:28:48 Uncompli cated moderate persiste nt asthma 871652819 Completed 2024 albutero l prn Shawn Bradley MD [address], [place], [address], [facility] 13:08:36 Anxiety 99537325 Completed 2024 sertrali ne started 03/02/25 changed to prozac 10 on Shawn Bradley MD [address], [place], [address], [facility] 5 17:05:48 Nausea and vomiting 08267030 Completed 2024 Shawn Bradley MD [address], [place], [address], [place] [facility] 5 13:20:27 Placenta circumva llata 1103529 Completed 2024 32wk [facility] 09:44:35 Frequent headache 243905255 Completed 2024 transpor t to [facility] 05/21, discharg e 05/23 MFM referral faxed 05/24 [facility] pending per KAJAL Pittman [facility]- [facility] unable to [...] more than 2-3 times a week. [facility] 10:55:26 Abnormal placenta affectin g manageme nt of mother 90178654 Completed 2024 MCI serial [facility] 10:46:25 Iron deficien cy anemia 49164274 Completed 2024 SS MFM tx venofer 200mg x1 HGB 10.6 [facility] 15:21:25 Gestatio nal diabetes mellitus 87562488 Completed 2024 checking bs QID - ruled in GDM Referral fax[facility] to [facility] 14:36:52 Notes:Order faxed to [facility] access 08/10 for PICC line, and home health already caring for pt. Vladimir RDZ at [phone] Problem Notes None recorded. Procedures Surgical History Date Name Laterality Status Provider Name and Address Organization Details Recorded Time 025 SALPINGECTOMY, LAPAROSCOPIC (SURG) completed [facility] 11:19:17 025 Date of Last Pap Smear completed Karina Burruoghs [facility] 01/28/2025 11:19:42 024 Nexplanon Removal completed Shawn Bradley MD [address], [place], [address], [facility] 08/05/2024 15:09:58 024 Control Implant Insertion completed Anju Mcnamara CNM [address], [place], [address], [facility] 05/08/2024 17:59:34 024 cholecystectomy completed Karina Burroughs [facility] 03/31/2025 09:18:57 018 Dilation and Curettage completed Karina Burroughs [facility] 07/05/2021 10:17:50 Imaging Results None recorded. Procedure Notes None recorded. Medical Equipment None Reported. Allergies Allergen ID Allergen Name Allergen Category Reaction Reaction Severity Criticality Documentation Date Start Date Code Code System Note Provider Name and Address Organization Details Recorded Time 14434 terbutali ne medicatio n anaphylax is Not available Not available 01/27/20252021 34300 RxNorm Karina ramos, [facility] 16:19:27 71171 amoxicill in medicatio n Not available Not available Not available 09/10/2025 723 RxNorm Not Available gene - External Data Service - prod 16:39:37 60148 terbinafi ne medicatio n anaphylax is Not available [facility] 09/10/20252024 30542 RxNorm Not Available gene[employer] Data Service - prod 16:40:54 Medications Name [...] Prescrib ed Elsewher e: Yes [facility] By: prabhjot Lee r [...] n (supplie d by office) insert lot [id number] Exp 01/2026 Not Available Not Available Not Available 28 mg iron-800 mcg tablet 07/05 completed Prescrib ed Elsewher e: Yes [facility] By: prabhjot Lee r DateTime : 01/14/20 10:45:00 AM Not Available Not Available Not Available lidocaine 5 % topical ointment APPLY OINTMENT EXTERNAL LY TO RIBS THREE TIMES DAILY NEEDED 01/14 completed Not Available Not Available Not Available [facility]INICAL SERVICES CONS[facility]ANT[facility] A 28 mg iron-1 mg-200 mg capsule [...] Address Organization Details Last Updated DateTime 08/25/2025 18028.08896 g 108/72 mm[Hg] Melyssa Santo [facility] 08/25/2025 15:41:08 Date Recorded Body height Body mass index (BMI) Body weight Systolic And Diastolic Provider Name and Address Organization Details Last Updated DateTime 08/25/2025 162.56 cm 31.6 kg/m2 89341 g 108/72 mm[Hg] Emma Dykes [facility] 08/25/2025 17:18:37 Social History Question Answer Notes LastModified by Organizat ion Details LastModified Time Tobacco Smoking Status Former Smoker Karina ramos, [facility] 07/05/2021 09:06:21 If You Are , What Was Your Level Of Alcohol Consumption Prior To ? Occasional [email or web address] Information not available 03/31/2025 Are You Blind Or Do You Have Difficulty Seeing? No [email or web address] Information not available 07/05/2021 What Is Your Level Of Caffeine Consumption? Heavy [email or web address] Information not available 07/05/2021 In The 14 Days Before Symptom Onset, Have You Had Close Contact With A Laboratory-confir med COVID-19 While That Case Was Ill? No [email or web address] Information not available 07/05/2021 In The 14 Days Before Symptom Onset, Have You Had Close Contact With A Person Who Is Under Investigation For COVID-19 While That Person Was Ill? No [email or web address] Information not available 07/05/2021 Have You Been To An Area Known To Be High Risk For COVID-19? No [email or web address] Information not available 07/05/2021 Are You Deaf Or Do You Have Serious Difficulty Hearing? No [email or web address] Information not available 07/05/2021 What Type Of Diet Are You Following? REGULAR [email or web address] Information not available 07/05/2021 Which Illicit Or Recreational Drugs Have You Used? Marijuana Information not available 07/05/2021 Have You Ever Been Counseled For Unhealthy Alcohol Use? No [email or web address] Information not available 07/05/2021 Do You Use Your Seat Belt Or Car Seat Routinely? Yes [email or web address] Information not available 07/05/2021 Do You Have Smoke And Carbon Monoxide Detectors In Your Home? Yes [email or web address] Information not available 07/05/2021 Do You Use Sunscreen Routinely? Yes [email or web address] Information not available 07/05/2021 Has Tobacco Cessation Counseling Been Provided? No [email or web address] Information not available 07/05/2021 Have You Used IV Drugs? No [email or web address] Information not available 07/05/2021 Do You Have Difficulty Walking Or Climbing Stairs? No Information not available 12/06/2021 Sex: Unknown Functional Status Question Answer Note LastModified by Organizat ion Details LastModified Time Do you use any illicit or recreational drugs? Yes [email or web address] Information not available 07/05/2021 Do you or have you ever used any other forms of tobacco or nicotine? Yes [email or web address] Information not available 07/05/2021 What is your level of alcohol consumption? None [email or web address] Information not available 03/31/2025 Do you or have you ever used smokeless tobacco? Never used smokeless tobacco [email or web address] Information not available 07/05/2021 Are you able to walk independently without assistance or assistive devices? YESWOREST [email or web address] Information not available 07/05/2021 Are you able to care for yourself independently? Yes [email or web address] Information not available 12/06/2021 Do you have difficulty dressing, bathing, grooming, or toileting? No [email or web address] Information not available 12/06/2021 Do you or have you ever used e-cigarettes or vape? Current user of electronic cigarettes [email or web address] Information not available 07/05/2021 What is your exercise level? Occasional [email or web address] Information not available 07/05/2021 Mental Status Question Answer Note LastModified by Organization D etails LastModified Time Do you feel stressed (tense, restless, nervous, or anxious, or unable to sleep at night)? [id number] [email or web address] Information not available 07/05/2021 Family History Relationship Description Onset Age of this Age Resolved Age Notes LastModified by Organization Details LastModified Time Father No current problems or disability [email or web address] Not available 05/2021 09:06:31 Mother No current problems or disability [email or web address] Not available 05/2021 09:06:31 Medical History Condition [...] ICD10 Code Diagnosis IMO Codes Diagnosis Note [id number] Shawn Bradley MD [place] [address] [place] [address] 08/04/2025 14:02:59 08/04/2025 15:06:33 Gestational diabetes mellitus 13487584 O24.410 O43.103 O43.113 Z3A.34 79389558 [id number] Anju Mcnamara [facility] [address] [place] [address] 08/04/2025 14:21:57 08/04/2025 15:26:03 Gestation period, 34 weeks 30037850 Z3A.34 9657864 Pruritic d isorder of skin 0399628351 L29.9 18397 plan labs today, ursadiol BID [id number] Anju Mcnamara [facility] [address] [place] [address] 08/11/2025 14:51:38 08/11/2025 17:16:44 Gestational diabetes mellitus 48464938 O24.414 96491282 [id number] [facility] [address] [place] [address] 08/11/2025 16:25:59 08/11/2025 17:46:32 Gestational diabetes mellitus 35146188 O24.414 33445770 [id number] Shawn Bradley MD [place] [address] [address] 08/18/2025 09:40:51 08/18/2025 10:15:47 Gestational diabetes mellitus 89860264 O24.414 Z3A.36 54769276 [id number] Anju Mcnamara [facility] [address] [address] 08/18/2025 09:41:06 08/18/2025 11:24:04 Gestation period, 36 weeks 50873342 Z3A.36 [id number] cont pnv [id number] [facility] [address] [address] 08/18/2025 09:41:16 08/18/2025 16:17:31 Gestational diabetes mellitus class A2 26792913 O24.414 32946601 [id number] Shawn Bradley MD [place] [address] [address] 08/25/2025 14:26:29 08/25/2025 15:14:02 Gestational diabetes mellitus 58217084 O24.414 56477087 [id number] [facility] [address] [address] 08/25/2025 14:26:57 08/25/2025 15:53:52 Gestation period, 37 weeks 71568122 Z3A.37 1199845 continue vitamin [id number] Anju Mcnamara [facility] [address] [place] [address] 08/25/2025 16:48:00 08/25/2025 17:20:42 Gestational diabetes mellitus 26879354 O24.419 [id number] Health Concerns Section Related Observation LastModified by Organization Detai ls LastModified Time None Recorded Concern Status LastModified by Organization Details LastModified Time None Recorded Payers Encounter Date Sequence Insurance Name Policy Number Policy Roberts Covered Member ID Roberts Member ID Guarantor Name 08/25/2025 1 [facility] (MEDICAID HMO) [id number] Yuni Mejia [id number] Yuni Mejia Notes Date Note Type Note Provider Name and Address Organization Details Recorded Time 08/25/2025 text/html Generic HPI TemplateReported by Patient Anju CastilloHilda Mcnamara, KRISTEN [address], [place], [address], [facility] 08/25/2025 15:51:24 OBGyn Episode Ob Episode Information Episode Created Date Number of Fetuses Patient Bloodtype Patient rh Status Prepregnancy Weight lbs Domestic Partner Domestic Partner Phone Father Name Information Systems Technician Status 03/02/20 25 1 B Positive 164 CLOSED Fetus Data First Name Last Name Admitted to NICU Weight (g) Sex Living Outcome Pediatric Complications Fetus ID Race Codes Race Delivery Type Ziah false 4025.62 9 F true Full Term 67848 Vaginal Delivery Problems Problem Notes SDH form completed 5GI consult Tachycardia Holter monitor 72 order- pt sent back on 03-27-25 Cardiology referral faxed per Dr Martínez office calling pt 04/21 to schedule consult scheduled 05/11 11:15AM Problem Name Start Date End Date Resolution Snomed Code Not e Uncomplicated moderate persistent asthma 03/02/2025 191686591 albuterol prn Abnormal placenta affecting management of mother 05/04/2025 25455962 MCI serial grow th us Iron deficiency anemia 05/25/2025 54068139 [facility] M[facility] tx [place] 200mg x1 HGB 10.6 Nausea and vomiting 03/02/2025 11300958 Anxiety 03/02/2025 17809332 sertralin e started 03/02/25 changed to prozac 10 on Gestational diabetes mellitus 07/08/2025 01946497 checking bs QID - ruled in GDM Referral faxed to [facility] 07/07 Frequent headache 05/03/2025 483151021 [place] to [facility] 05/21, discharge 05/23 MFM referral faxed 05/24 [facility] Neurology consult pending per KAJAL Pittman [facility] unable to see pt due to insurance 05/25[facility] 07/05/25 Level US & Consult (see MFM consult zayas recommendations ) regimen prn Imitrex 50mg for acute migraine, vitamin B2 (Riboflavin) 400mg, Coenzyme q10 300mg and magnesium oxide 200 to 600mg daily. minimize use of Excedrin or Tylenol to no more than 2-3 times a week. 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/2025 2574935 32wk growth us Jun Calculation Initial Jun [...] Weight in lbs Pre/Post Dialysis Refused Weight 158.035491372652 BP Diastolic BP Location Tested BP Systolic [...] Weight in lbs Pre/Post Dialysis Refused Weight 158.323568553195 BP Diastolic BP Location Tested BP Systolic [...] Weight in lbs Pre/Post Dialysis Refused Weight 162.215358174882 BP Diastolic BP Location Tested BP Systolic BP Type 78 123 Fetus Heart Rate Present A 148 Fetus Movement A Yes Comments Patient is having having ronny n, cramping and vaginal discharge. 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 rfilled zofran, precautions and education [...] Type Weight in lbs Pre/Post Dialysis Refused 168.652308035956 BP Diastolic BP Location Tested BP Systolic [...] Type Weight in lbs Pre/Post Dialysis Refused 169.036828618539 BP Diastolic BP Location Tested BP Systolic [...] Weight in lbs Pre/Post Dialysis Refused Weight 175.301873604797 BP Diastolic BP Location Tested BP Systolic [...] Weight in lbs Pre/Post Dialysis Refused Weight 182.968511211206 BP Diastolic BP Location Tested BP Systolic [...] Weight in lbs Pre/Post Dialysis Refused Weight 181.652021837427 BP Diastolic BP Location Tested BP Systolic BP Type 73 L arm 131 sitting Fetus Heart Rate Present Fetus Movement A Yes Comments viral URI testied neg at urg ent care, nausea resolved, efw 68%, +FM plan education and precautions f/u 2 weeks diagnosed GDM, plan administrative office manager, gave list reviewed protein vs carb Flowsheet Date 07/21/2025 Gibson Score Blood Edema Fundus Height Fundus Units Glucose Ketones Leukocytes Nitrite Labor Signs Protein Cervic Dilation Cervic Effacement Cervic Station Type Weight in lbs Pre/Post Dialysis Refused Weight 181.234739834394 BP Diastolic BP Location Tested BP Systolic BP Type 78 L arm 127 sitting Fetus Heart Rate Present A 150 Fetus Movement A Yes Comments rpt urine culture +FM review ed blood sugars, meets with administrative office manager today, precautions and education f/u 2 [...] Weight in lbs Pre/Post Dialysis Refused Weight 181.690823703091 BP Diastolic BP Location Tested BP Systolic [...] Weight in lbs Pre/Post Dialysis Refused Weight 183.975525476634 BP Diastolic BP Location Tested BP Systolic [...] Type Weight in lbs Pre/Post Dialysis Refused 184.150768688680 BP Diastolic BP Location Tested BP Systolic [...] Type Weight in lbs Pre/Post Dialysis Refused 184.470784847779 BP Diastolic BP Location Tested BP Systolic [...] Type Weight in lbs Pre/Post Dialysis Refused 184.026622765945 BP Diastolic BP Location Tested BP Systolic [...] Weight in lbs Pre/Post Dialysis Refused Weight 184.259180977357 BP Diastolic BP Location Tested BP Systolic [...] Weight in lbs Pre/Post Dialysis Refused Weight 164.457288743268 BP Diastolic BP Location Tested BP Systolic [...]
--- OUTSIDE RECORDS SUMMARY | 2025-10-27 12:09 | XMS_ITS ---
Author Organization Unknown Address [address] [place] [address] [phone] Phone Care Team Providers Care Network Systems Consultant Name Role Phone LADONNA SCHUMACHER Attending Unavailable [...] Quang Decker M.D. LC: GABRIEL Report ID: [id number] Reading Location: [place] [address] Social History Type Status Start Date End Date Code Code Syst em Smoking History Never smoker (Never Smoked) 152912384 SNOMED CT Sex Female Assessment You had [...] 6002 SNOMED-CT UNSPECIFIED ABDOMINAL PAIN active 215 66553 SNOMED-CT Allergies and Adverse Reactions Allergy Substance Reaction Severity Start Date Concern Status Co de Code System AMOXICILLIN Active 723 RxNorm TERBUTALINE Active 54714 RxNorm Plan of Treatment Stress Test Treadmill 01/21/2025 Vp Rheumatology Consult 04/27/2025 Encounters Encounter Diagnosis Start Date [...]
--- OUTSIDE RECORDS SUMMARY | 2025-10-27 12:09 | XMS_ITS | Continuity of Care Document ---
Author Organization [facility], [facility] Address [address] [place] [address] [place] [address] Care Team Providers Care Chip Tester Name Role Phone SEAN CARLOS Primary Care [...] Not Available [facility] [address], [place], [address], 03/06/2025 03:58:26 03/06/20 25 03/06/2025 [UNIT Y] ANEUP LOIDY NIPT sex chromosome aneuploidy NOT DETECT ED normal Not Available [facility] [address], [place], [address], 03/06/2025 03:58:26 03/06/20 25 03/06/2025 [UNIT Y] ANEUP LOIDY NIPT monosomy X LOW RISK <1 in 10,000 normal Not Available [facility] [address], [place], [address], 03/06/2025 03:58:26 03/06/20 25 03/06/2025 [UNIT Y] ANEUP LOIDY NIPT trisomy 13 LOW RISK <1 in 10,000 normal Not Available [facility] [address], [place], [address], 03/06/2025 03:58:26 03/06/20 25 03/06/2025 [UNIT Y] ANEUP LOIDY NIPT trisomy 18 LOW RISK <1 in 10,000 normal Not Available [facility] [address], [place], [address], 03/06/2025 03:58:26 03/06/20 25 03/06/2025 [UNIT Y] ANEUP LOIDY NIPT trisomy 21 LOW RISK <1 in 10,000 normal Not Available [facility] [address], [place], [address], 03/06/2025 03:58:26 03/06/20 25 03/06/2025 [UNIT Y] ANEUP LOIDY NIPT sex FEMALE normal Not Available [facility] [address], [place], [address], 03/06/2025 03:58:26 03/06/20 25 03/06/2025 [UNIT Y] ANEUP LOIDY NIPT gestation SINGLE TON normal Not Available [facility] [address], [place], [address], 03/06/2025 03:58:26 03/06/20 25 03/06/2025 [UNIT Y] ANEUP LOIDY NIPT for detailed report, see pdf See PDF normal Not Available [facility] [address], [place], [address], 03/06/2025 03:58:26 03/02/20 25 03/02/2025 CULTU RE: URINE result report SEE RESULT S BELOW Test: Cultu re: Urine Speci men Sourc e: Urine - Clean Catch Speci men Type: Urine Speci men Date: 025 1455 Resul t Date: 2138 Resul t Statu s: Final resul t Abnor mal: No Resul ting Lab: [facility] [address] [facility] [address] Tel: CULTU RE ----- ----- ----- --- No growt h in 1 day (dete ction level of 10,00 0 colon ies / ml.) Not Available [facility] (Lab) [address] [facility], [place], [address], 03/03/2025 22:42:27 03/12/2003/12/2025 CULTU RE: URINE result report SEE RESULT S BELOW Test: Cultu re: Urine Speci men Sourc e: Urine - Clean Catch Speci men Type: Urine Speci men Date: 2024 1600 Resul t Date: 2024 0610 Resul t Statu s: Final resul t Abnor mal: No Resul ting Lab: [facility] [address] [facility] [address] Tel: CULTU RE ----- ----- ----- --- No growt h in 1 day (dete ction level of 10,00 0 colon ies / ml.) Not Available [facility] (Lab) [address] [facility], [place], [address], 03/14/2025 07:15:03 03/12/2003/12/2025 urina lysis , dipst ick Leukocytes ++ Not Available [address], [place], [address], 03/12/2025 16:45:06 03/12/2003/12/2025 urina lysis , dipst ick Protein + Not Available [facility] [address], [place], [address], 03/12/2025 16:45:06 03/12/20 25 03/12/2025 urina lysis , dipst ick pH 5 Not Available [facility] [address], [place], [address], 03/12/2025 16:45:06 03/12/20 25 03/12/2025 urina lysis , dipst ick Blood trace Not Available [facility] [address], [place], [address], 03/12/2025 16:45:06 03/12/20 25 03/12/2025 urina lysis , dipst ick Specific [place] 1.015 Not Available [facility] [address], [place], [address], 03/12/2025 16:45:06 03/12/20 25 03/12/2025 urina lysis , dipst ick Ketone +++ Not Available [facility] [address], [place], [address], 03/12/2025 16:45:06 03/31/20 25 03/31/2025 TSH, REFLE X FREE T4 TSH 0.42 uIU/m L 0.30-5 .33 Not Available [facility] (Lab) [address] [facility] [facility], [place], [address], 04/01/2025 03:05:12 03/31/20 25 03/31/2025 CULTU RE: URINE result report SEE RESULT S BELOW Test: Cultu re: Urine Speci men Sourc e: Urine Voide d Speci men Type: Urine Speci men Date: 1710 Resul t Date: 2256 Resul t Statu s: Final resul t Abnor mal: No Resul ting Lab: [facility] [address] [facility] [address] Tel: CULTU RE ----- ----- ----- --- Cultu re resul t (>=3 organ isms prese nt) indic ates possi ble conta minat ion. Repea t cultu re if sympt oms indic ate. Not Available [facility] (Lab) [address], [place], [address], 04/01/2025 23:59:19 03/31/20 25 03/31/2025 urina lysis , dipst ick Leukocytes +1 Not Available [facility] [address], [place], [address], 03/31/2025 09:23:13 03/31/20 25 03/31/2025 urina lysis , dipst ick Nitrite normal Not Available [facility] [address], [place], [address], 03/31/2025 09:23:13 03/31/20 25 03/31/2025 urina lysis , dipst ick Urobilinogen normal Not Available [facility] david [address], [place], [address], 03/31/2025 09:23:13 03/31/20 25 03/31/2025 urina lysis , dipst ick Protein trace Not Available [facility] [address], [place], [address], 03/31/2025 09:23:13 03/31/20 25 03/31/2025 urina lysis , dipst ick pH 5 Not Available [facility] [address], [place], [address], 03/31/2025 09:23:13 03/31/20 25 03/31/2025 urina lysis , dipst ick Specific [place] 1.020 Not Available [facility] [address], [place], [address], 03/31/2025 09:23:13 03/31/20 25 03/31/2025 urina lysis , dipst ick Ketone normal Not Available [facility] [address], [place], [address], 03/31/2025 09:23:13 03/31/20 25 03/31/2025 urina lysis , dipst ick Bilirubin normal Not Available [facility] anna [address], [place], [address], 03/31/2025 09:23:13 03/31/20 25 03/31/2025 urina lysis , dipst ick Glucose normal Not Available [facility] [address], [place], [address], 03/31/2025 09:23:13 03/31/20 25 03/31/2025 urina lysis , dipst ick Appearance normal Not Available [facility] domingo [address], [place], [address], 03/31/2025 09:23:13 03/31/20 25 03/31/2025 urina lysis , dipst ick Color normal Not Available [facility] [address], [place], [address], 03/31/2025 09:23:13 04/01/20 25 04/01/2025 [facility] bacterial vaginosis (bv), tma Negati ve negati ve Not Available [facility] (Lab) [address] [place], [address], 04/02/2025 14:08:45 04/01/20 25 04/01/2025 [facility], DENIS mekhi species, tma Negati ve negati ve Not Available [facility] (Lab) [address] [place], [address], 04/02/2025 14:08:45 04/01/20 25 04/01/2025 [facility]OMEN 'S [facility] H SWAB PLUS, DENIS mekhi glabrata, tma Negati ve negati ve Not Available [facility] (Lab) [address] [place], [address], 04/02/2025 14:08:45 04/01/20 25 04/01/2025 WOMEN 'S [facility] H SWAB PLUS, DENIS trichomonas vaginalis, tma Negati ve negati ve Not Available [facility] (Lab) [address] [place], [address], 04/02/2025 14:08:45 04/01/20 25 04/01/2025 [facility] DENIS chlamydia trachomatis, PCR Negati ve negati ve Not Available [facility] (Lab) [address] [place], [address], 04/02/2025 14:08:45 04/01/20 25 04/01/2025 [facility] DENIS neisseria gonorrhoeae, [...] this panel . Not Available [facility] (Lab) [address] , [place], [address], 04/02/2025 14:08:45 04/22/2004/22/2025 CULTU RE: URINE result report SEE RESULT S BELOW Test: Cultu re: Urine Speci men Sourc e: Urine Voide d Speci men Type: Urine Speci men Date: 2024 1314 Resul t Date: 2024 0322 Resul t Statu s: Final resul t Abnor mal: No Resul ting Lab: [facility] [address] [facility] [address] Tel: CULTU RE ----- ----- ----- --- No growt h in 1 day (dete ction level of 10,00 0 colon ies / ml.) Not Available [facility] (Lab) [address], [place], [address], 04/24/2025 04:28:01 04/22/20 25 04/22/2025 urina lysis , dipst ick Leukocytes + Not Available [address], [place], [address], 04/22/2025 10:01:51 04/22/20 25 04/22/2025 urina lysis , dipst ick Protein + Not Available [facility] [address], [place], [address], 04/22/2025 10:01:51 04/22/20 25 04/22/2025 urina lysis , dipst ick pH 8 Not Available [facility] [address], [place], [address], 04/22/2025 10:01:51 04/22/20 25 04/22/2025 urina lysis , dipst ick Blood + Not Available [facility] [address], [place], [address], 04/22/2025 10:01:51 04/22/20 25 04/22/2025 urina lysis , dipst ick Specific [place] 1.010 Not Available [facility] [address], [place], [address], 04/22/2025 10:01:51 04/22/20 25 04/22/2025 urina lysis , dipst ick Ketone + Not Available [facility] [address], [place], [address], 04/22/2025 10:01:51 06/23/20 25 06/23/2025 HEMAT OCRIT (HCT) HCT 35.6 % (based on docume nted legal sex) 34.0-4 5.0 Not Available [facility] (Lab) [address] [facility], [place], [address], 06/24/2025 11:45:32 06/23/20 25 06/23/2025 HEMOG LOBIN (HGB) HGB 11.1 g/dL (based on docume nted legal sex) 11.6-1 5.4 low Not Available [facility] (Lab) [address], [place], [address], 06/24/2025 11:45:32 06/23/20 25 06/23/2025 GTT - GESTA ROLAND L SCREE N, ACOG OB glucose, 1 hour screen 180 mg/dL 70-135 high Not Available [facility] (Lab) [address], [place], [address], 06/24/2025 11:45:33 06/23/20 25 06/23/2025 HIV 1/2 ANTIG EN/AN TIBOD Y, REFLE X CONFI RMATI ON HIV antigen/anti body Nonrea ctive nonrea ctive HIV-1 antig en and HIV-1 /HIV- 2 antib odies were not detec greg. No labor atory evide nce of HIV infec tion. Not Available [facility] (Lab) [address], [place], [address], 06/24/2025 11:45:33 06/23/20 25 06/23/2025 RPR SCREE N, REFLE X TITER /CONF IRMAT ION RPR qualitative Nonrea ctive nonrea ctive Not Available [facility] (Lab) [address], [place], [address], 06/24/2025 11:45:34 07/21/20 25 07/21/2025 CULTU RE: URINE result report SEE RESULT S BELOW Test: Cultu re: Urine Speci men Sourc e: Urine - Clean Catch Speci men Type: Urine Speci men Date: 2024 1024 Resul t Date: 2024 0252 Resul t Statu s: Final resul t Abnor mal: No Resul ting Lab: [facility] [address] [facility] [address] Tel: CULTU RE ----- ----- ----- --- No growt h in 1 day (dete ction level of 10,00 0 colon ies / ml.) Not Available [facility] (Lab) [address], [place], [address], 07/23/2025 03:57:01 07/21/2007/21/2025 urina lysis , dipst ick Leukocytes ++ Not Available [address], [place], [address], 07/21/2025 11:03:04 07/21/20 25 07/21/2025 urina lysis , dipst ick Nitrite neg Not Available [address], [place], [address], 07/21/2025 11:03:04 07/21/20 25 07/21/2025 urina lysis , dipst ick Urobilinogen neg Not Available [facility] [address], [place], [address], 07/21/2025 11:03:04 07/21/20 25 07/21/2025 urina lysis , dipst ick Protein + Not Available [facility] [address], [place], [address], 07/21/2025 11:03:04 07/21/20 25 07/21/2025 urina lysis , dipst ick pH 5 Not Available [facility] [address], [place], [address], 07/21/2025 11:03:04 07/21/20 25 07/21/2025 urina lysis , dipst ick Specific [place] 1.030 Not Available [facility] [address], [place], [address], 07/21/2025 11:03:04 07/21/20 25 07/21/2025 urina lysis , dipst ick Ketone +++ Not Available [facility] [address], [place], [address], 07/21/2025 11:03:04 07/21/20 25 07/21/2025 urina lysis , dipst ick Bilirubin neg Not Available [facility] [address], [place], [address], 07/21/2025 11:03:04 07/21/20 25 07/21/2025 urina lysis , dipst ick Glucose neg Not Available [facility] [address], [place], [address], 07/21/2025 11:03:04 07/21/20 25 07/21/2025 urina lysis , dipst ick Appearance cloudy Not Available [address], [place], [address], 07/21/2025 11:03:04 07/21/20 25 07/21/2025 urina lysis , dipst ick Color dark Not Available [facility] [address], [place], [address], 07/21/2025 11:03:04 08/04/20 25 08/04/2025 CMP(C OMPRE HENSI VE METAB OLIC PANEL ) sodium 138 mmol/ L 133-14 6 Not Available [facility] (Lab) [address], [place], [address], 08/05/2025 13:39:18 08/04/20 25 08/04/2025 CMP(C OMPRE HENSI VE METAB OLIC PANEL ) potassium 4.0 mmol/ L 3.5-5. 1 Not Available [facility] (Lab) [address], [place], [address], 08/05/2025 13:39:18 08/04/20 25 08/04/2025 CMP(C OMPRE HENSI VE METAB OLIC PANEL ) chloride 105 mmol/ L 98-107 Not Available [facility] (Lab) [address], [place], [address], 08/05/2025 13:39:18 08/04/20 25 08/04/2025 CMP(C OMPRE HENSI VE METAB OLIC PANEL ) carbon dioxide 25 mmol/ L 21-31 Not Available [facility] (Lab) [address], [place], [address], 08/05/2025 13:39:18 08/04/20 25 08/04/2025 CMP(C OMPRE HENSI VE METAB OLIC PANEL ) anion gap 8 mmol/ L 4-13 Not Available [facility] (Lab) [address], [place], [address], 08/05/2025 13:39:18 08/04/20 25 08/04/2025 CMP(C OMPRE HENSI VE METAB OLIC PANEL ) blood urea nitrogen 10 mg/dL 7-25 Not Available [facility] (Lab) [address], [place], [address], 08/05/2025 13:39:18 08/04/20 25 08/04/2025 CMP(C OMPRE HENSI VE METAB OLIC PANEL ) creatinine 0.41 mg/dL 0.60-1 .30 low Not Available [facility] (Lab) [address], [place], [address], 08/05/2025 13:39:18 08/04/20 25 08/04/2025 CMP(C OMPRE HENSI VE METAB OLIC PANEL ) egfrcr (CKD-epi 2020) >90 mL/mi n/1.7 3_m2 >=60 Not Available [facility] (Lab) [address], [place], [address], 08/05/2025 13:39:18 08/04/20 25 08/04/2025 CMP(C OMPRE HENSI VE METAB OLIC PANEL ) calcium 8.9 mg/dL 8.3-10 .5 Not Available [facility] (Lab) [address], [place], [address], 08/05/2025 13:39:18 08/04/20 25 08/04/2025 CMP(C OMPRE HENSI VE METAB OLIC PANEL ) glucose 116 mg/dL 70-100 high Not Available [facility] (Lab) [address], [place], [address], 08/05/2025 13:39:18 08/04/20 25 08/04/2025 CMP(C OMPRE HENSI VE METAB OLIC PANEL ) protein, total 6.1 g/dL 6.4-8. 3 low Not Available [facility] (Lab) [address], [place], [address], 08/05/2025 13:39:18 08/04/20 25 08/04/2025 CMP(C OMPRE HENSI VE METAB OLIC PANEL ) albumin 3.5 g/dL 3.5-5. 0 Not Available [facility] (Lab) [address], [place], [address], 08/05/2025 13:39:18 08/04/20 25 08/04/2025 CMP(C OMPRE HENSI VE METAB OLIC PANEL ) ALT 11 units /L 9-43 Not Available [facility] (Lab) [address], [place], [address], 08/05/2025 13:39:18 08/04/20 25 08/04/2025 CMP(C OMPRE HENSI VE METAB OLIC PANEL ) alkaline phosphatase 98 units /L 34-104 Not Available [facility] (Lab) [address], [place], [address], 08/05/2025 13:39:18 08/04/20 25 08/04/2025 CMP(C OMPRE HENSI VE METAB OLIC PANEL ) AST 15 units /L 13-39 Not Available [facility] (Lab) [address], [place], [address], 08/05/2025 13:39:18 08/04/20 25 08/04/2025 CMP(C OMPRE HENSI VE METAB OLIC PANEL ) bilirubin, total 0.3 mg/dL 0.2-1. 2 Not Available [facility] (Lab) [address], [place], [address], 08/05/2025 13:39:18 08/04/20 25 08/04/2025 BILE ACIDS , TOTAL bile acids, total 4 umol/ L 0-10 Test Perfo rmed by: Luke hern[facility]dez rn [facility] [address] [address] Not Available [facility] (Lab) [address], [place], [address], 08/05/2025 13:39:19 03/02/20 25 03/02/2025 US, obste tric, nucha l trans lucen cy No observ ation record ed. [email or web address] [facility] [address], [place], [address], 03/02/2025 13:35:30 03/02/20 25 03/02/2025 US, obste tric, nucha l trans lucen cy No observ ation record ed. [email or web address] [facility] [address], [place], [address], 03/03/2025 14:08:39 03/08/20 25 03/08/2025 US, obste tric, 1st trime ster No observ ation record ed. [email or web address] [facility] [address], [place], [address], 03/08/2025 12:22:22 03/08/20 25 03/08/2025 US, obste tric, 1st trime ster No observ ation record ed. [email or web address] [address]sha [address], [place], [address], 03/10/2025 15:03:13 04/01/20 25 03/24/2025 [email or web address] r monit or No observ ation record ed. [address], [address], 04/08/2025 12:36:45 04/01/20 25 03/22/2025 [email or web address] r monit or No observ ation record ed. [address] (Pulmonary) [address] [place] [address] [place] [address], [address], 04/06/2025 08:59:34 04/20/20 25 04/20/2025 US, obstanna tric, limit ed No observ ation record ed. [email or web address] [facility] [address], [place], [address], 04/20/2025 17:39:30 04/20/20 25 04/20/2025 US, obste tric, follo w-up No observ ation record ed. [email or web address] [facility] [address] [place] [address] [address], [place], [address], 04/23/2025 08:32:54 04/28/20 25 04/28/2025 US, obste tric, 2nd or 3rd trime ster No observ ation record ed. [email or web address] [facility] [address], [place], [address], 04/28/2025 17:48:42 04/28/20 25 04/28/2025 US, obste tric, 2nd or 3rd trime ster No observ ation record ed. [email or web address] [address] [address], [place], [address], 05/04/2025 22:16:11 05/07/20 25 05/07/2025 non-s tress test No observ ation record ed. [address], [place], [address], 05/28/2025 13:33:54 05/21/20 25 05/21/2025 CT, head + brain , w/o contr ast No observ ation record ed. [place] [id number] [facility] [address], [place], [address], 05/24/2025 13:48:57 05/28/20 25 05/28/2025 US, obste tric, follo w-up No observ ation record ed. [email or web address] [facility] [address], [place], [address], 05/28/2025 17:32:34 05/28/20 25 05/28/2025 US, obste tric, follo w-up No observ ation record ed. [email or web address] [address] [address], [place], [address], 06/01/2025 15:13:13 06/08/20 25 06/07/2025 US, obste tric, follo w-up No observ ation record ed. [email or web address] [facility] [address], [place], [address], 06/15/2025 10:53:46 07/07/20 25 07/07/2025 US, obste tric, follo w-up No observ ation record ed. [email or web address] [facility] [address], [place], [address], 07/07/2025 13:18:01 07/07/20 25 07/07/2025 US, obste tric, follo w-up No observ ation record ed. [email or web address] [address] [address], [place], [address], 07/07/2025 11:29:37 08/04/20 25 08/04/2025 US, obste tric, follo w-up No observ ation record ed. [email or web address] [facility] [address], [place], [address], 08/04/2025 15:08:50 08/04/20 25 08/04/2025 US, obste tric, follo w-up No observ ation record ed. [email or web address] [address] [address], [place], [address], 08/06/2025 10:41:50 08/11/20 25 08/11/2025 non-s tress test No observ ation record ed. [email or web address] [facility] [address], [place], [address], 08/11/2025 17:37:52 08/11/20 non-s tress test No observ ation record ed. [email or web address] [facility] [address], [place], [address], 08/11/2025 17:38:11 08/15/20 25 08/15/2025 non-s tress test No observ ation record ed. [place] [id number], [place], [address], 08/21/2025 10:18:57 08/15/2008/15/2025 US, obste tric, bioph ysica l profi le No observ ation record ed. [address], [place], [address], 08/17/2025 10:50:53 08/18/2008/18/2025 US, obste tric, bioph ysica l profi le + non-s tress test No observ ation record ed. [email or web address] [facility] [address], [place], [address], 08/18/2025 10:21:39 08/18/2008/18/2025 US, obste tric, bioph ysica l profi le + non-s tress test No observ ation record ed. [email or web address] [address] [address], [place], [address], 08/18/2025 10:35:44 08/18/2008/18/2025 non-s tress test No observ ation record ed. [email or web address] [facility] [address], [place], [address], 08/18/2025 17:34:03 08/18/20 non-s tress test No observ ation record ed. [email or web address] [facility] [address], [place], [address], 08/18/2025 16:06:09 08/25/2008/25/2025 US, obste tric, bioph ysica l profi le + non-s tress test No observ ation record ed. [email or web address] [facility] [address], [place], [address], 08/25/2025 18:52:06 08/25/20 25 08/25/2025 US, obste tric, follo w-up No observ ation record ed. [email or web address] Esha [address], [place], [address], 08/25/2025 15:47:28 08/25/20 25 08/25/2025 non-s tress test No observ ation record ed. [email or web address] [facility] [address], [place], [address], 08/25/2025 18:12:15 08/25/20 non-s tress test No observ ation record ed. [email or web address] [facility] [address], [place], [address], 08/25/2025 17:21:19 08/30/20 25 08/30/2025 non-s tress test No observ ation record ed. [address], [place], [address], 09/15/2025 15:26:49 09/01/20 25 09/01/2025 non-s tress test No observ ation record ed. [place] [id number] [facility] [address], [place], [address], 09/13/2025 11:32:22 09/01/20 25 09/01/2025 US, obste tric No observ ation record ed. [place] [id number] [facility] [address], [place], [address], 09/02/2025 15:56:01 09/01/20 25 09/01/2025 non-s tress test No observ ation record ed. [place] [id number] [facility] [address], [place], [address], 09/02/2025 14:32:38 11/20/09/16/2025 CT, angio gram, head + neck, w/ contr ast No observ ation record ed. [email or web address] [facility] [address], [place], [address], 09/16/2025 20:01:05 09/28/20 25 09/28/2025 non-s tress test No observ ation record ed. [email or web address] [facility] [address], [place], [address], 10/04/2025 16:42:40 Result Notes None recorded. Problems Name Problem SNOMED Code Status Onset Date Resolution Date Notes Provider Name and Address Organization Details Recorded Time Hypereme sis 000721979 Completed phenerga n now prn [facility] 2 16:43:51 Anxiety in pregnanc y [id number] 9109 Completed will continue to monitor [facility] 2 16:43:51 Past pregnanc y history of gestatio nal diabetes mellitus 256083801 Completed Early 1 hr GTT @ 20wks 11/03 APPT [facility] 2 16:43:51 Spinal muscular atrophy 8548127 Completed Carrier - Not in contact with FOB. [facility] r[facility] 2 16:43:51 Anxiety 78474098 Completed prozac Karina ramos [facility] 4 11:00:46 Nausea [id number] Completed d/c zofran pump 11/08 per pt request [facility]ina ramos [facility] 4 11:00:46 Postpart um hemorrha ge [id number] Completed 2017 with d&c Karina ramos [facility] 4 11:00:46 Normal pregnanc y in multigra jessy [id number] 15201 Completed 201907/05/2021 Encounte r for supervis ion of other normal pregnanc y, 3rd trimeste r;Record ed Elsewher e: No Locat ion: [facility] S ource: [facility] [employer] Surgical Tech yvrose: N Dennis ce ID: [id number] Gigi lable Time: 10:45:00 AM Karina ramos, [facility] 10:15:27 Gestatio n period, 37 weeks [id number] Completed 201907/05/2021 37 weeks gestatio n of pregnanc y;Record ed Elsewher e: No Locat ion: [facility] S ource: [facility] Medical Surgical Tech yvrose: N Natalyati ce ID: [id number] Gigi lable Time: 09:00:00 AM Karina ramos, [facility] 10:15:[address] Concept Completed 201907/05/2021 Matern care for abnlt fetl hrt rate or rhym, 3rd tri, unsp;Rec orded Elsewher e: No Locat ion: [facility] S ource: [facility] [employer] Surgical Tech yvrose: N Natalyati ce ID: [id number] Gigi lable Time: 08:45:00 AM Karina ramos [facility] 10:15:29 Gestatio nal diabetes mellitus [id number] Completed 201907/05/2021 Gestatio nal diabetes mellitus in pregnanc y, diet controll ed;Recor ded Elsewher e: No Locat ion: [facility] S ource: [facility] [employer] Surgical Tech yvrose: N Natalyati ce ID: [id number] Gigi lable Time: 11:45:00 AM Karina ramos [facility] 10:15:25 Gestatio n period, 38 weeks 37265331 Completed 201907/05/2021 38 weeks gestatio n of pregnanc y;Record ed Elsewher e: No Locat ion: Jaelyn castillo [facility] S ource: EHR Medical Surgical Tech yvrose: N Practi ce ID: [id number] Gigi lable Time: 11:30:00 AM Karina ramos, [facility] 10:15:13 Amenorrh ea 92381913 Completed 202007/10/2021 Tammi Jones null, [facility] 13:08:35 Pregnanc y 21060798 Completed 202003/29/2022 Emma Dykes null, [facility] 12:28:48 Pregnanc y 50557084 Completed 202304/22/2024 Emma Dykes null, [facility] 12:28:48 Headache 58069284 Active 2023 Karina Burroughs null, [facility] 16:19:28 Pregnanc y 01007330 Completed 202309/14/2025 Emma Elkinsfredi null, [facility] 12:28:48 Uncompli cated moderate persiste nt asthma 420292743 Completed 2024 albutero l prn Shawn Bradley MD [address], [place], [address], [facility] 13:08:36 Anxiety 44844375 Completed 2024 sertrali ne started 03/02/25 changed to prozac 10 on Shawn Bradley MD [address], [place], [address], [facility] 5 17:05:48 Nausea and vomiting 55041438 Completed 2024 Shawn Bradley MD [address], [place], [address], [place] [facility] 5 13:20:27 Placenta circumva llata 4329604 Completed 2024 32wk [facility] 09:44:35 Frequent headache 241006494 Completed 2024 transpor t to [facility] 05/21, discharg e 05/23 MFM referral [...] a week. [facility] 10:55:26 Abnormal placenta affectin g manageme nt of mother 15036831 Completed 2024 MCI serial growth [facility] 5 10:46:25 Iron deficien cy anemia 73567238 Completed 2024 SS MFM tx venofer 200mg x1 HGB 10.6 [facility] 5 15:21:25 Gestatio nal diabetes mellitus 81458394 Completed 2024 checking bs QID - ruled in GDM Referral fax[facility] to [facility] 07[facility] 14:36:52 Notes:Order faxed to [facility] access 08/10 for PICC line, and home health already caring for pt. Vladimir RDZ at [phone] Problem Notes None recorded. Procedures Surgical History Date Name Laterality Status Provider Name and Address Organization Details Recorded Time 025 SALPINGECTOMY, LAPAROSCOPIC (SURG) completed Not Available [facility] 09/06/[facility] 11:19:17 025 Date of Last Pap Smear completed Karina Burroughs [facility] 01/28/2025 11:19:42 024 Nexplanon Removal completed Shawn Bradley MD [address], [place], [address], [facility] 08/05/2024 15:09:58 024 Control Implant Insertion completed Anju Mcnamara CNM [address], [place], [address], [facility] 05/08/2024 17:59:34 024 cholecystectomy completed Karina Burroughs [facility] 03/31/2025 09:18:57 018 Dilation and Curettage completed Karina Burroughs [facility] 07/05/2021 10:17:50 Imaging Results None recorded. Procedure Notes None recorded. Medical Equipment None Reported. Allergies Allergen ID Allergen Name Allergen Category Reaction Reaction Severity Criticality Documentation Date Start Date Code Code System Note Provider Name and Address Organization Details Recorded Time 48876 terbutali ne medicatio n anaphylax is Not available Not available 01/27/20252021 91863 RxNorm Karina ramos, [facility] 16:19:27 53487 amoxicill in medicatio n Not available Not available Not available 09/10/2025 723 RxNorm Not Available gene - External Data Service - prod 16:39:37 36013 terbinafi ne medicatio n anaphylax is Not available [facility] 09/10/20252024 13209 RxNorm Not Available [employer] Data Service - prod 16:40:54 Medications Name [...] ed Elsewher e: Yes [facility] odify By: prabhjot Lee r [...] n (supplie d by office) insert lot [id number] Exp 01/2026 Not Available Not Available Not Available 28 mg iron-800 mcg tablet 07/05 completed Prescrib ed Elsewher e: Yes [facility]oca [facility] odify By: prabhjot Lee r DateTime : 01/14/20 10:45:00 AM Not Available Not Available Not Available lidocaine 5 % topical ointment APPLY OINTMENT EXTERNAL LY TO RIBS THREE TIMES DAILY NEEDED 01/14 completed Not Available Not Available Not Available [employer]-DH A 28 mg iron-1 mg-200 mg [...] Updated DateTime 08/11/2025 162.56 cm 31.4 kg/m2 76702.4 g 115/73 mm[Hg] Toya Perkins [facility] 08/11/2025 15:17:18 Social History Question Answer Notes LastModified by Organizat ion Details LastModified Time Tobacco Smoking Status Former Smoker Karina ramos, [facility] 07/05/2021 09:06:21 If You Are , What Was Your Level Of Alcohol Consumption Prior To ? Occasional [email or web address] Information not available 03/31/2025 Are You Blind Or Do You Have Difficulty Seeing? No [email or web address] Information not available 07/05/2021 What Is Your Level Of Caffeine Consumption? Heavy [email or web address] Information not available 07/05/2021 In The 14 Days Before Symptom Onset, Have You Had Close Contact With A Laboratory-confir med COVID-19 While That Case Was Ill? No [email or web address] Information not available 07/05/2021 In The 14 Days Before Symptom Onset, Have You Had Close Contact With A Person Who Is Under Investigation For COVID-19 While That Person Was Ill? No Information not available 07/05/2021 Have You Been To An Area Known To Be High Risk For COVID-19? No [email or web address] Information not available 07/05/2021 Are You Deaf Or Do You Have Serious Difficulty Hearing? No Information not available 07/05/2021 What Type Of Diet Are You Following? REGULAR [email or web address] Information not available 07/05/2021 Which Illicit Or Recreational Drugs Have You Used? Marijuana [email or web address] Information not available 07/05/2021 Have You Ever Been Counseled For Unhealthy Alcohol Use? No [email or web address] Information not available 07/05/2021 Do You Use Your Seat Belt Or Car Seat Routinely? Yes [email or web address] Information not available 07/05/2021 Do You Have Smoke And Carbon Monoxide Detectors In Your Home? Yes [email or web address] Information not available 07/05/2021 Do You Use Sunscreen Routinely? Yes [email or web address] Information not available 07/05/2021 Has Tobacco Cessation Counseling Been Provided? No [email or web address] Information not available 07/05/2021 Have You Used IV Drugs? No [email or web address] Information not available 07/05/2021 Do You Have Difficulty Walking Or Climbing Stairs? No [email or web address] Information not available 12/06/2021 Sex: Unknown Functional Status Question Answer Note LastModified by Organizat ion Details LastModified Time Do you use any illicit or recreational drugs? Yes [email or web address] Information not available 07/05/2021 Do you or have you ever used any other forms of tobacco or nicotine? Yes [email or web address] Information not available 07/05/2021 What is your level of alcohol consumption? None [email or web address] Information not available 03/31/2025 Do you or have you ever used smokeless tobacco? Never used smokeless tobacco [email or web address] Information not available 07/05/2021 Are you able to walk independently without assistance or assistive devices? YESWOREST [email or web address] Information not available 07/05/2021 Are you able to care for yourself independently? Yes [email or web address] Information not available 12/06/2021 Do you have difficulty dressing, bathing, grooming, or toileting? No [email or web address] Information not available 12/06/2021 Do you or have you ever used e-cigarettes or vape? Current user of electronic cigarettes [email or web address] Information not available 07/05/2021 What is your exercise level? Occasional Information not available 07/05/2021 Mental Status Question Answer Note LastModified by Organization D etails LastModified Time Do you feel stressed (tense, restless, nervous, or anxious, or unable to sleep at night)? [id number] [email or web address] Information not available 07/05/2021 Family History Relationship Description Onset Age of this Age Resolved Age Notes LastModified by Organization Details LastModified Time Father No current problems or disability [email or web address] Not available 05/2021 09:06:31 Mother No current problems or disability [email or web address] Not available 05/2021 09:06:31 Medical History Condition [...] ICD10 Code Diagnosis IMO Codes Diagnosis Note [id number] [facility] [address] [address] 07/21/2025 09:28:54 07/21/2025 12:36:06 Pain in pelvis 82443813 R10.2 623571 Gestation period, 32 weeks 7652901 Z3A.32 9457613 [id number] Shawn Bradley MD [facility] [address] [place] [address] 08/04/2025 14:02:59 08/04/2025 15:06:33 Gestational diabetes mellitus 29246278 O24.410 O43.103 O43.113 Z3A.34 28038546 [id number] Anju Mcnamara CNM [facility] [address] [place] [address] 08/04/2025 14:21:57 08/04/2025 15:26:03 Gestation period, 34 weeks 78371988 Z3A.34 4511370 Pruritic d isorder of skin 8541137520 L29.9 68364 plan labs today, ursadiol BID [id number] [facility] [address] [place] [address] 08/11/2025 14:51:38 08/11/2025 17:16:44 Gestational diabetes mellitus 88103898 O24.414 14996386 [id number] [facility] [address] [place] [address] 08/11/2025 16:25:59 08/11/2025 17:46:32 Gestational diabetes mellitus 39999999 O24.414 [id number] Health Concerns Section Related Observation LastModified by Organization Detai ls LastModified Time None Recorded Concern Status LastModified by Organization Details LastModified Time None Recorded Payers Encounter Date Sequence Insurance Name Policy Number Policy Roberts Covered Member ID Roberts Member ID Guarantor Name 08/11/2025 1 [facility] (MEDICAID HMO) [id number] Yuni Mejia [id number] Yuni Mejia Notes Date Note Type Note Provider Name and Address Organization Details Recorded Time 08/11/2025 text/html Generic HPI TemplateReported by Patient Anju Mcnamara CNM [address], [place], [address], [facility] 08/11/2025 17:10:44 OBGyn Episode Ob Episode Information Episode Created Date Number of Fetuses Patient Bloodtype Patient rh Status Prepregnancy Weight lbs Domestic Partner Domestic Partner Phone Father Name Racing Driver Status 03/02/20 25 1 B Positive 164 CLOSED Fetus Data First Name Last Name Admitted to NICU Weight (g) Sex Living Outcome Pediatric Complications Fetus ID Race Codes Race Delivery Type Ziah false 4025.62 9 F true Full Term 15763 Vaginal Delivery Problems Problem Notes SDH form completed 5GI consult Tachycardia Holter monitor 72 order- pt sent back on 03-27-25 Cardiology referral faxed per Dr Martínez office calling pt 04/21 to schedule consult scheduled 05/11 11:15AM Problem Name Start Date End Date Resolution Snomed Code Not e Uncomplicated moderate persistent asthma 03/02/2025 394560998 albuterol prn Abnormal placenta affecting management of mother 05/04/2025 17441188 MCI serial grow th us Iron deficiency anemia 05/25/2025 25332461 [facility] tx [place] 200mg x1 HGB 10.6 Nausea and vomiting 03/02/2025 44230070 Anxiety 03/02/2025 01812464 sertralin e started 03/02/25 changed to prozac 10 on Gestational diabetes mellitus 07/08/2025 16964268 checking bs QID - ruled in GDM Referral faxed to [facility] 07/07 Frequent headache 05/03/2025 211282961 [place] [facility] 05/21, discharge 05/23 MF referral faxed 05/24 SS Neurology consult pending per KJAAL Pittman [facility]- Neuro [facility] unable to see pt due to insurance 05/25[facility] 07/05/25 Level US & Consult (see [facility] consult zayas recommendations ) regimen prn Imitrex 50mg for acute migraine, vitamin B2 (Riboflavin) 400mg, Coenzyme q10 300mg and magnesium oxide 200 to 600mg daily. minimize use of Excedrin or Tylenol to no more than 2-3 times a week. 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/2025 3897748 32wk growth us Jun Calculation Initial Jun [...] Weight in lbs Pre/Post Dialysis Refused Weight 158.635544103370 BP Diastolic BP Location Tested BP Systolic [...] Weight in lbs Pre/Post Dialysis Refused Weight 158.994027393871 BP Diastolic BP Location Tested BP Systolic [...] Weight in lbs Pre/Post Dialysis Refused Weight 162.059604977918 BP Diastolic BP Location Tested BP Systolic BP Type 78 123 Fetus Heart Rate Present A 148 Fetus Movement A Yes Comments Patient is having having ronny n, cramping and vaginal discharge. went to ed exam done cultures and rx sent, ?FM, await rn cardiac results rfilled zofran, precautions and education [...] Type Weight in lbs Pre/Post Dialysis Refused 168.014911563500 BP Diastolic BP Location Tested BP Systolic [...] Type Weight in lbs Pre/Post Dialysis Refused 169.148620747327 BP Diastolic BP Location Tested BP Systolic [...] Weight in lbs Pre/Post Dialysis Refused Weight 175.468577314948 BP Diastolic BP Location Tested BP Systolic [...] Weight in lbs Pre/Post Dialysis Refused Weight 182.374512257998 BP Diastolic BP Location Tested BP Systolic [...] Weight in lbs Pre/Post Dialysis Refused Weight 181.323769242455 BP Diastolic BP Location Tested BP Systolic BP Type 73 L arm 131 sitting Fetus Heart Rate Present Fetus Movement A Yes Comments viral URI testied neg at urg ent care, nausea resolved, efw 68%, +FM plan education and precautions f/u 2 weeks diagnosed GDM, plan lap regulator, gave list reviewed protein vs carb Flowsheet Date 07/21/2025 Gibson Score Blood Edema Fundus Height Fundus Units Glucose Ketones Leukocytes Nitrite Labor Signs Protein Cervic Dilation Cervic Effacement Cervic Station Type Weight in lbs Pre/Post Dialysis Refused Weight 181.960024799962 BP Diastolic BP Location Tested BP Systolic BP Type 78 L arm 127 sitting Fetus Heart Rate Present A 150 Fetus Movement A Yes Comments rpt urine culture +FM review ed blood sugars, meets with lap regulator today, precautions and education f/u 2 weeks [...] Weight in lbs Pre/Post Dialysis Refused Weight 181.853541433464 BP Diastolic BP Location Tested BP Systolic [...] Weight in lbs Pre/Post Dialysis Refused Weight 183.246648567158 BP Diastolic BP Location Tested BP Systolic [...] Type Weight in lbs Pre/Post Dialysis Refused 184.540946515704 BP Diastolic BP Location Tested BP Systolic [...] Type Weight in lbs Pre/Post Dialysis Refused 184.276773613094 BP Diastolic BP Location Tested BP Systolic [...] Type Weight in lbs Pre/Post Dialysis Refused 184.490917117540 BP Diastolic BP Location Tested BP Systolic [...] Weight in lbs Pre/Post Dialysis Refused Weight 184.651320771299 BP Diastolic BP Location Tested BP Systolic [...] Weight in lbs Pre/Post Dialysis Refused Weight 164.540083159246 BP Diastolic BP Location Tested BP Systolic [...]
--- OUTSIDE RECORDS SUMMARY | 2025-10-27 12:09 | XMS_ITS ---
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 [place]: CHAUNCEY Report ID: [id number] Reading Location: [place] [address] Social History Type Status Start Date End Date Code Code Syst em Smoking History Never smoker (Never Smoked) 912123327 SNOMED CT Sex Female Assessment You had [...] 6002 SNOMED-CT UNSPECIFIED ABDOMINAL PAIN active 215 01141 SNOMED-CT Allergies and Adverse Reactions Allergy Substance Reaction Severity Start Date Concern Status Co de Code System AMOXICILLIN Active 723 RxNorm TERBUTALINE Active 12929 RxNorm Plan of Treatment Stress Test Treadmill 01/21/2025 Multicultural Internship Consult 04/27/2025 Encounters Encounter Diagnosis Start Date [...]
--- OUTSIDE RECORDS SUMMARY | 2025-10-27 12:09 | XMS_ITS | Clinical Summary ---
Author Organization [facility] Address [address] [place] [address] Care Team Providers Care Flat Locker Name Role Phone Tanner Paige MD Primary Care Provider Janell Celaya APNP Unavailable Tara Miranda ANP-BC Unavailable + Carlos Rodarte PIE DOUGH ROLLER-C Unavailable [phone] Allergies Active Allergy Reactions Criticality Noted Date [...] Department Care Team Description 10/26/2025 3:35 PM PRESENTATION TEAM MEMBER - 10/26/2025 4:47 PM [facility] [address] [place] [address] Nacho Recinos MD Headache Discharge Disposition: Home or Self Care (Routine Discharge) 10/26/2025 Travel 10/25/2025 Telephone [facility] [address] [facility] [address] [place] [address] Chito Hansen DO Appointment Request (BILATERAL rib pain) 10/20/2025 12:30 AM PRESENTATION TEAM MEMBER - 10/20/2025 3:00 AM [facility] [address] [place] [address] Fantasma Pedroza DO Wound Discharge Disposition: Home or Self Care (Routine Discharge) 10/20/2025 Travel 10/16/2025 9:52 AM PRESENTATION TEAM MEMBER - 10/16/2025 12:03 PM [facility] [place] [address] Nacho Recinos MD Chest Pain Discharge Disposition: Home or Self Care (Routine Discharge) 10/16/2025 Travel 10/15/2025 [facility]phone [facility] [address] [place] [address] Carlos Rodarte, PIE DOUGH ROLLER-C Orders 10/15/[address] [facility] [address] [place] [address] Tara Miranda ANP-BC Heart Problem 10/14/2025 4:30 PM PRESENTATION TEAM MEMBER - 10/14/2025 11:59 PM [facility] [address] [place] [address] Carlos Rodarte, PIE DOUGH ROLLER-C Discharge Disposition: Home or Self Care (Routine Discharge) 10/14/2025 Travel 10/14/2025 Telephone [facility] [place] [address] Tara Miranda ANP-BC Abstract Labs (Abstract labs and meds) 10/09/2025 4:05 PM PRESENTATION TEAM MEMBER - 10/09/2025 5:30 PM [facility] [place] [address] Naldo Cadet DO Discharge Disposition: Home or Self Care (Routine Discharge) 10/09/2025 Travel 10/08/2025 [facility] [address] [place] [address] Scanned, Doc Pccl 10/08/2025 [facility]-[address] [place] [address] Tara Miranda, ANP- Referral Request 10/07/2025 3:20 PM PRESENTATION TEAM MEMBER - 10/07/2025 11:59 PM PRESENTATION TEAM MEMBER Hospital Encounter [facility] [address] [place] [address] Carlos Rodarte, PIE DOUGH ROLLER-C Discharge Disposition: Home or Self Care (Routine Discharge) 10/07/2025 [facility] [address] [place] [address] Scanned, Doc Pccl 10/07/2025 Travel 10/05/2025 6:18 PM PRESENTATION TEAM MEMBER - 10/05/2025 7:26 PM [facility] [address] [place] [address] [place] [address] Kaitlin Colon MD Shoulder Pain Discharge Disposition: Home or Self Care (Routine Discharge) 10/05/2025 Travel 10/01/2025 7:38 PM PRESENTATION TEAM MEMBER - 10/01/2025 7:50 PM [facility] [place] [address] Earache; Dizziness Discharge Disposition: Home or Self Care (Routine Discharge) 10/01/2025 Travel 09/21/2025 9:29 AM PRESENTATION TEAM MEMBER - 09/21/2025 12:07 PM [facility] [place] [address] Naldo Cadet DO Chest Pain Discharge Disposition: Home or Self Care (Routine Discharge) 09/21/2025 Travel 09/20/2025 12:17 AM PRESENTATION TEAM MEMBER - 09/20/2025 4:07 AM [facility] [address] Tien Mehta DO Hypertension Discharge Disposition: Home or Self Care (Routine Discharge) 09/20/2025 Travel 09/12/2025 12:49 PM PRESENTATION TEAM MEMBER - 09/12/2025 3:12 PM PRESENTATION TEAM MEMBER [facility] [address] [place] [address] [place] [address] Emy Irene MD Chest Pain Discharge Disposition: Home or Self Care (Routine Discharge) 09/12/2025 9:10 AM PRESENTATION TEAM MEMBER - 09/12/2025 11:05 AM [facility] [address] [place] [address] [place] [address] Emy Irene MD Headache; Vaginal Bleeding (Post-) Discharge Disposition: Home or Self Care (Routine Discharge) 09/12/2025 Travel 08/29/2025 7:07 PM PRESENTATION TEAM MEMBER - 08/29/2025 9:39 PM PRESENTATION TEAM MEMBER Hospital Encounter [facility] [address] [place] [address] [place] [address] Lester Valle MD (Headache) Discharge Disposition: Home or Self Care (Routine Discharge) 08/29/2025 Travel 08/18/2025 7:48 PM CDT - 08/18/2025 9:22 PM CDT [facility] [address] [place] [address] [place] [address] Nacho Recinos MD Chest Pain Discharge Disposition: Home or Self Care (Routine Discharge) 08/18/2025 Travel 08/15/2025 10:59 AM CDT - 08/15/2025 1:56 PM CDT Hospital Encounter [facility] [address] [place] [address] [place] [address] Yeni Pinto MD Discharge Disposition: Home or Self Care (Routine Discharge) 08/14/2025 11:00 AM CDT - 08/14/2025 11:59 AM CDT [facility] [address] [place] [address] [place] [address] Naldo Cadet DO Sore Throat Discharge Disposition: Home or Self Care (Routine Discharge) 08/14/2025 Travel 07/28/2025 Telephone [facility] [address] [place] [address] [place] [address] Марина Grace MD Problem (Pt called stating [...] Recorded Patient Health Questionnaire-2 Score 0 05/13/2024 [facility] Occupat ional Health - Occupational Stress [...] How often do you attend chur or orthodoxy services? 1 to 4 times per year 08/29/2025 Do you belong to any clubs o r organizations such as mandaen groups, unions, fraternal or athletic groups, or [...] and heating? Not hard at all 08/29/2025 [facility] of Occupat ional Health - Occupational Stress [...] time in the past 12 m [facility], were you homeless or living in a detention (including now)? No 08/29/2025 B1300 Health Literacy Answer Date Recor ded How often do you need to hav e someone help you when you read instructions, pamphlets, or other written material from your doctor or pharmacy? Never 08/29/2025 [facility] Utilities Answer Date Recorded In the [...] Comments Blood Pressure 133/88 10/26/2025 4:30 PM PRESENTATION TEAM MEMBER Pulse 79 10/26/2025 3:42 PM PRESENTATION TEAM MEMBER Temperature 36.7 C (98 F) 10/26/2025 3:42 PM PRESENTATION TEAM MEMBER Respiratory Rate 22 10/26/2025 3:42 PM PRESENTATION TEAM MEMBER Oxygen Saturation 97% 10/26/2025 4:30 PM PRESENTATION TEAM MEMBER Inhaled Oxygen Concentration - - Weight 72.1 kg (159 lb) 10/26/2025 3:42 PM PRESENTATION TEAM MEMBER Height 165.1 cm (5' 5) 10/26/2025 3:42 PM PRESENTATION TEAM MEMBER Body Mass Index 26.46 10/26/2025 3:42 PM PRESENTATION TEAM MEMBER Plan of Treatment Upcoming Encounters Date Type Department Care Team (Late st Contact Info) Description 11/01/2025 1:00 PM PRESENTATION TEAM MEMBER Telephone [facility] [address] [place] [address] Carlos Rodarte PIE DOUGH ROLLER-C [address] [place] [address] 11/04/2025 12:30 PM PRESENTATION TEAM MEMBER Office Visit [facility] [address] [place] [address] Tara Miranda, ANP- [address] [place], [place] [address] 11/05/2025 6:00 AM PRESENTATION TEAM MEMBER [facility] [address] [place] [address] Carlos Rodarte, PIE DOUGH ROLLER-C [address] [place] [address] Health Maintenance Due Date Last Done Comments [...] Comments ECG 12-LEAD STAT 10/26/2025 4:34 PM PRESENTATION TEAM MEMBER CT ABD+PEL W CON STAT 10/20/2025 1:42 AM PRESENTATION TEAM MEMBER XR CHEST PORTABLE STAT 10/20/2025 1:4 2 AM PRESENTATION TEAM MEMBER AMYLASE STAT 10/20/2025 1:20 AM PRESENTATION TEAM MEMBER LIPASE STAT 10/20/2025 1:20 AM PRESENTATION TEAM MEMBER COMPREHENSIVE METABOLIC PANEL STAT 10/20/2025 1:20 AM PRESENTATION TEAM MEMBER HC CBC AUTO W/AUTO DIFF STAT 10/20/2025 1:20 AM PRESENTATION TEAM MEMBER TEST URINE STAT 10/20/2025 1:15 AM PRESENTATION TEAM MEMBER URINALYSIS STAT 10/20/2025 1:15 AM PRESENTATION TEAM MEMBER RESPIRATORY PCR PNL LIMITED STAT 10/20/2025 1:08 AM PRESENTATION TEAM MEMBER STREP A, DNA STAT 10/20/2025 1:08 AM PRESENTATION TEAM MEMBER CTA CHEST PE PROTOCOL STAT 10/16/2025 11:18 AM PRESENTATION TEAM MEMBER URINE BACTERIA CULTURE STAT 10/16/2025 10:40 AM PRESENTATION TEAM MEMBER URINALYSIS STAT 10/16/2025 10:40 AM PRESENTATION TEAM MEMBER ECG 12-LEAD Routine 10/16/2025 10:07 AM PRESENTATION TEAM MEMBER MAGNESIUM STAT 10/16/2025 10:07 AM PRESENTATION TEAM MEMBER D-DIMER, QUANTITATIVE STAT 10/16/2025 10:07 AM PRESENTATION TEAM MEMBER TROPONIN, QUANT STAT 10/16/2025 10:07 AM PRESENTATION TEAM MEMBER HC CBC AUTO W/AUTO DIFF STAT 10/16/2025 10:07 AM PRESENTATION TEAM MEMBER ECG 12-LEAD Routine 10/14/2025 4:44 PM PRESENTATION TEAM MEMBER Heart palpitations TROPONIN, QUANT STAT 10/09/2025 4:30 PM PRESENTATION TEAM MEMBER COMPREHENSIVE METABOLIC PANEL STAT 10/09/2025 4:30 PM PRESENTATION TEAM MEMBER HC CBC AUTO W/AUTO DIFF STAT 10/09/2025 4:30 PM PRESENTATION TEAM MEMBER ECG 12-LEAD Routine 10/09/2025 4:03 PM PRESENTATION TEAM MEMBER LIPID PROFILE (ABSTRACTED) Routine 10/08/2025 BASIC METABOLIC PANEL (ABSTRACTED) Routine 10/08/2025 XR RIBS ADAM Routine 10/07/2025 3:43 PM PRESENTATION TEAM MEMBER Rib pain XR CHEST PA+LAT Routine 10/07/2025 3:43 PM PRESENTATION TEAM MEMBER Rib pain URINALYSIS STAT 10/05/2025 7:04 PM PRESENTATION TEAM MEMBER MAGNESIUM STAT 10/05/2025 6:42 PM PRESENTATION TEAM MEMBER HEPATIC FUNCTION PANEL STAT 10/05/2025 6:42 PM PRESENTATION TEAM MEMBER BASIC METABOLIC PANEL STAT 10/05/2025 6:42 PM PRESENTATION TEAM MEMBER HC CBC AUTO W/AUTO DIFF STAT 10/05/2025 6:42 PM PRESENTATION TEAM MEMBER ECG 12-LEAD Routine 10/05/2025 6:22 PM PRESENTATION TEAM MEMBER URINALYSIS STAT 10/01/2025 8:27 PM PRESENTATION TEAM MEMBER CTA CHEST PE PROTOCOL STAT 09/21/2025 11:20 AM PRESENTATION TEAM MEMBER D-DIMER, QUANTITATIVE STAT 09/21/2025 9:59 AM PRESENTATION TEAM MEMBER TROPONIN, QUANT STAT 09/21/2025 9:59 AM PRESENTATION TEAM MEMBER COMPREHENSIVE METABOLIC PANEL STAT 09/21/2025 9:59 AM PRESENTATION TEAM MEMBER HC CBC AUTO W/AUTO DIFF STAT 09/21/2025 9:59 AM PRESENTATION TEAM MEMBER ECG 12-LEAD Routine 09/21/2025 9:36 AM PRESENTATION TEAM MEMBER COMPREHENSIVE METABOLIC PANEL STAT 09/20/2025 12:47 AM PRESENTATION TEAM MEMBER HC CBC AUTO W/AUTO DIFF STAT 09/20/2025 12:47 AM PRESENTATION TEAM MEMBER CTA CHEST PE PROTOCOL STAT 09/12/2025 2:00 PM PRESENTATION TEAM MEMBER PRO-BRAIN NATRIURETIC PEPTIDE Routine 09/12/2025 1:10 PM PRESENTATION TEAM MEMBER BASIC METABOLIC PANEL STAT 09/12/2025 1:10 PM PRESENTATION TEAM MEMBER HC CBC W/O DIFF STAT 09/12/2025 1:10 PM PRESENTATION TEAM MEMBER TROPONIN, QUANT STAT 09/12/2025 1:10 PM PRESENTATION TEAM MEMBER D-DIMER, QUANTITATIVE STAT 09/12/2025 1:10 PM PRESENTATION TEAM MEMBER ECG 12-LEAD STAT 09/12/2025 12:50 PM PRESENTATION TEAM MEMBER ECG 12-LEAD STAT 09/12/2025 10:28 AM PRESENTATION TEAM MEMBER URINALYSIS STAT 09/12/2025 9:56 AM PRESENTATION TEAM MEMBER PROTEIN CREAT RATIO URINE STAT 09/12/2025 9:56 AM PRESENTATION TEAM MEMBER COMPREHENSIVE METABOLIC PANEL STAT 09/12/2025 9:37 AM PRESENTATION TEAM MEMBER HC CBC AUTO W/AUTO DIFF STAT 09/12/2025 9:37 AM PRESENTATION TEAM MEMBER HC COMPREHENSIVE METABOL PANEL STAT 08/29/2025 8:34 PM PRESENTATION TEAM MEMBER Headache HC CBC AUTO W/AUTO DIFF STAT 08/29/2025 8:34 PM PRESENTATION TEAM MEMBER Headache ECG 12-LEAD STAT 08/29/2025 8:26 PM PRESENTATION TEAM MEMBER Headache CORONAVIRUS (COVID-19) ANTIGEN STAT 08/29/2025 8:16 PM PRESENTATION TEAM MEMBER Headache HC RSV AG QL STAT 08/29/2025 8:16 PM PRESENTATION TEAM MEMBER Headache INFLUENZA A & B STAT 08/29/2025 8:16 PM PRESENTATION TEAM MEMBER Headache POCT GLUCOSE - DOCKED DEVICE Routine 08/29/2025 8:02 PM PRESENTATION TEAM MEMBER HC URINALYSIS AUTO W/MICRO STAT 08/29/2025 7:11 PM PRESENTATION TEAM MEMBER Headache NONSTRESS TEST Routine 08/29/2025 7:09 PM PRESENTATION TEAM MEMBER Headache XR CHEST PORTABLE STAT 08/18/2025 8:1 [...] * ECG 12 lead (10/26/2025 4:34 PM PRESENTATION TEAM MEMBER) Only the most recent of10 resultswithin the time period is included. ECG QT 417 [facility] ECG QTC 379 [facility] 10/26/2025 4:34 PM PRESENTATION TEAM MEMBER Narrative [facility] RAD - 10/27/2025 6:04 AM PRESENTATION TEAM MEMBER [address] 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 Trace periumbilical subcutaneous inflammatory change. No evidence of abscess formation. 2. Urinary bladder wall is somewhat diffusely thickened for degree of distention, with trace urothelial enhancement present. If there is clinical concern for acute cystitis, recommend correlation with urinalysis. Referred By: Interpreted By: Jose Paul MD, 10/20/2025 2:14 AM Narrative 10/20/2025 2:14 AM PRESENTATION TEAM MEMBER [address] [place] [address] EXAM: CT ABD+PEL W CON INDICATION: Periumbilical [...] Procedure Note Jose Paul MD - 10/20/2025 [facility] [address] [facility] [place] [address] EXAM: CT ABD+PEL W CON INDICATION: Periumbilical [...] * XR CHEST PORTABLE (10/20/2025 1:42 AM PRESENTATION TEAM MEMBER) Only the most recent of2 resultswithin the time period is included. Anatomical Region Laterality Modality Chest Radiographic Jazmin ging 10/20/2025 2:16 AM PRESENTATION TEAM MEMBER Impressions 10/20/2025 2:16 AM PRESENTATION TEAM MEMBER IMPRESSION: No acute cardiopulmonary process. Referred By: Interpreted By: Jose Paul MD, 10/20/2025 2:16 AM Narrative 10/20/2025 2:16 AM PRESENTATION TEAM MEMBER [address] [place] [address] EXAM: XR CHEST PORTABLE INDICATION: Cough chills COMPARISON: Chest radiograph, 07 Oct 2025 TECHNIQUE: Single frontal radiographic image of the chest FINDINGS: No pneumothorax, pleural effusion, or focal airspace consolidation. Electronic device projects over the left upper lung field. Pulmonary vasculature and cardiomediastinal silhouette within normal limits. No acute osseous abnormality. Procedure Note Jose Paul MD - 10/20/[address] [place] [address] EXAM: XR CHEST PORTABLE INDICATION: Cough chills [...] Final Result * LIPASE (10/20/2025 1:20 AM PRESENTATION TEAM MEMBER) LIPASE 39 16 - 77 UNITS/L 10/20/2025 1:43 AM [facility] BLOOD VENOUS BLOOD SPECIMEN / Unknown 10/20/2025 1:20 AM PRESENTATION TEAM MEMBER Fantasma Pedroza DO LABORATORY Final Result [facility] [address] [place] [address], * (ABNORMAL) COMPREHENSIVE METABOLIC PANEL (10/20/2025 1:20 AM PRESENTATION TEAM MEMBER) Only the most recent of5 resultswithin the time period is included. SODIUM S/P/B 143 136 - 145 MMOL/L 10/20/2025 1:43 AM [facility] POTASSIUM S/P/B 3.4(L) 3.5 - 5.1 MMOL/L 10/20/2025 1:43 AM [facility] CHLORIDE S/P/B 105 98 - 107 MMOL/L 10/20/2025 1:43 AM [facility] CO2 30.7 21.0 - 32.0 MMOL/L 10/20/2025 1:43 AM [facility] GLUCOSE 100(H) 70 - 99 MG/DL 10/20/2025 1:43 AM [facility] Comment: FASTING GLUCOSE 100 TO 125 MG/DL IS CONSISTENT WITH IMPAIRED FASTING GLUCOSE. FASTING GLUCOSE >125 MG/DL IS CONSISTENT WITH DIABETES. RANDOM GLUCOSE >200 MG/DL WITH HYPERGLYCEMIC SYMPTOMS IS CONSISTENT WITH DIABETES. PER ADA GUIDELINES BUN 15 6 - 24 MG/DL 10/20/2025 1:43 AM [facility] CREATININE S/P/B 0.71 0.55 - 1.02 MG/DL 10/20/2025 1:43 AM [facility] CALCIUM S/P/B 9.1 8.4 - 10.5 MG/DL 10/20/2025 1:43 AM [facility] BILIRUBIN TOTAL S/P/B 0.2 0.2 - 1.0 MG/DL 10/20/2025 1:43 AM [facility] Comment: THIS ASSAY IS NOT RECOMMENDED FOR PATIENTS UNDERGOING TREATMENT WITH ELTROMBOPAG DUE TO THE POTENTIAL FOR FALSELY ELEVATED RESULTS. ALKALINE PHOSPHATASE S/P/B 139(H) 37 - 98 U/L 10/20/2025 1:43 AM [facility] AST 12(L) 15 - 37 U/L 10/20/2025 1:43 AM [facility] ALT 20 14 - 59 U/L 10/20/2025 1:43 AM [facility] TOTAL PROTEIN S/P/B 7.5 6.4 - 8.2 G/DL 10/20/2025 1:43 AM [facility] ALBUMIN S/P/B 3.6 3.4 - 5.0 G/DL 10/20/2025 1:43 AM [facility] ANION GAP 7.3 5.0 - 15.0 MMOL/L 10/20/2025 1:43 AM [facility] OSMOLALITY (CALC) 297 MOSM/KG 025 1:43 AM [facility] Comment:REFERENCE RANGE NOT ESTABLISHED GFR ESTIMATE >90 >89 ML/MIN/1. 73 M2 10/20/2025 1:43 AM [facility] GFR NOTES GFR REFERENCE S: 10/20/2025 1:43 AM [facility] Comment: THE ESTIMATED GFR IS [...] BLOOD SPECIMEN / Unknown 10/20/2025 1:20 AM [facility] Fantasma Pedroza DO LABORATORY Final Result [facility] [address] [place] [address], * (ABNORMAL) CBC W/DIFF AUTOMATED (10/20/2025 1:20 AM PRESENTATION TEAM MEMBER) Only the most recent of7 resultswithin the time period is included. WBC 9.30 4.00 - 10.80 x10'3/uL 10/20/2025 1:26 AM [facility] RBC 4.90 4.10 - 5.40 x10'6/uL 10/20/2025 1:26 AM [facility] HGB 12.1 12.0 - 16.0 G/DL 10/20/2025 1:26 AM [facility] HCT 38.5 36.0 - 47.0 % 10/20/2025 1:26 AM [facility] MCV 78.6 78.0 - 100.0 FL 10/20/2025 1:26 AM [facility] MCH 24.7(L) 27.0 - 31.0 PG 10/20/2025 1:26 AM [facility] MCHC 31.4(L) 33.0 - 36.0 G/DL 10/20/2025 1:26 AM [facility] RDW 13.9 11.5 - 14.5 % 10/20/2025 1:26 AM [facility] PLT 251 150 - 350 x10'3/uL 10/20/2025 1:26 AM [facility] MPV 9.4 7.4 - 10.4 FL 10/20/2025 1:26 AM [facility] CBC COMMENT NORMAL REFERENCE RANGE NOT ESTABLISHED FOR THE PROPORTIONAL LEUKOCYTE DIFFERENTIAL. 10/20/2025 1:26 AM [facility] NEUTROPHILS % 54.8 % 10/20/2025 1:26 AM [facility] LYMPHOCYTES % 33.5 % 10/20/2025 1:26 AM [facility] MONOCYTES % 8.5 % 10/20/2025 1:26 AM PRESENTATION TEAM MEMBER [facility] EOSINOPHILS % 2.7 % 10/20/2025 1:26 AM PRESENTATION TEAM MEMBER [facility] BASOPHILS % 0.3 % 10/20/2025 1:26 AM [facility] IMMATURE GRANS % 0.2 % 10/20/20 1:26 AM PRESENTATION TEAM MEMBER [facility] NRBC % 0.0 % 10/20/2025 1:26 AM PRESENTATION TEAM MEMBER [facility] ABS. NEUTROPHILS 5.09 1.60 - 8.30 x10'3/uL 10/20/2025 1:26 AM PRESENTATION TEAM MEMBER [facility] ABS. LYMPHOCYTES 3.12 0.80 - 4.70 x10'3/uL 10/20/2025 1:26 AM [facility] ABS. MONOCYTES 0.79 0.00 - 1.50 x10'3/uL 10/20/2025 1:26 AM PRESENTATION TEAM MEMBER [facility] ABS. EOSINOPHILS 0.25 0.00 - 0.40 x10'3/uL 10/20/2025 1:26 AM [facility] ABS. BASOPHILS 0.03 0.00 - 0.20 x10'3/uL 10/20/2025 1:26 AM [facility] ABS. IMMATURE GRANULOCYTES 0.02 0.00 - 0.03 x10'3/uL 10/20/2025 1:26 AM PRESENTATION TEAM MEMBER [facility] ABS. NUCLEATED RBC'S 0.00 0.00 - 0.01 x10'3/uL 10/20/2025 1:26 AM [facility] BLOOD VENOUS BLOOD SPECIMEN / Unknown 10/20/2025 1:20 AM PRESENTATION TEAM MEMBER Fantasma Pedroza DO LABORATORY Final Result [facility] [address] [place] [address], * AMYLASE (10/20/2025 1:20 AM PRESENTATION TEAM MEMBER) AMYLASE S/P/B 42 25 - 115 UNITS/L 10/20/2025 1:43 AM PRESENTATION TEAM MEMBER [facility] BLOOD VENOUS BLOOD SPECIMEN / Unknown 10/20/2025 1:20 AM PRESENTATION TEAM MEMBER us Fantasma Pedorza DO LABORATORY Final Result [facility] [address] [place] [address], * (ABNORMAL) URINALYSIS (10/20/2025 1:15 AM PRESENTATION TEAM MEMBER) Only the most recent of5 resultswithin the time period is included. COLOR (U) YELLOW 10/20/2025 1:37 AM PRESENTATION TEAM MEMBER [facility] TRANSPARENCY CLEAR 10/20/2025 1:37 AM [facility] SPECIFIC GRAVITY (U) 1.025 1.000 - 1.025 10/20/2025 1:37 AM [facility] U PH 6.0 5.0 - 8.0 10/20/2025 1:37 AM [facility] LEUKOCYTES (U) NEGATIVE NEGATIVE 10/20/2025 1:37 AM [facility] NITRITES NEGATIVE NEGATIVE 10/20/2025 1:37 AM [facility] PROTEIN RANDOM (U) NEGATIVE NEGATIVE 10/20/2025 1:37 AM [facility] GLUCOSE (U) NEGATIVE NEGATIVE 10/20/2025 1:37 AM [facility] KETONES MG/DL (U) TRACE(A) NEGATIVE 10/20/2025 1:37 AM [facility] UROBILINOGEN 0.2 <1.0 EU/DL 10/20/2025 1:37 AM [facility] BILIRUBIN (U) NEGATIVE NEGATIVE 10/20/2025 1:37 AM [facility] BLOOD (U) NEGATIVE NEGATIVE 10/20/2025 1:37 AM [facility] WBC/HPF 0-5 0 - 5 /HPF 10/20/2025 1:37 AM PRESENTATION TEAM MEMBER [facility] EPI/LPF MODERATE /LPF 10/20/2025 1:37 AM PRESENTATION TEAM MEMBER [facility] BACTERIA (U) 2+ /HPF 10/20/2025 1:37 AM PRESENTATION TEAM MEMBER [facility] MUCUS PRESENT 10/20/2025 1:37 AM PRESENTATION TEAM MEMBER [facility] URINE URINE SPECIMEN OBTAINED BY CLEAN CATCH PROCEDURE / Unknown 10/20/2025 1:15 AM PRESENTATION TEAM MEMBER us Fantasma Pedroza DO URINE ORDERABLES Final Resul t Performing Organization Address [facility] Co de Phone Number [facility] [address] [place] [id number], [place] [phone] * TEST URINE (10/20/2025 1:15 AM PRESENTATION TEAM MEMBER) URINE HCG TEST NEGATIVE 10/20/2025 1:35 AM PRESENTATION TEAM MEMBER [facility] SPECIFIC GRAVITY 1.025 10/20/2025 1:35 AM PRESENTATION TEAM MEMBER [facility] URINE URINE SPECIMEN FROM URETHRA / Unknown 10/20/2025 1:15 AM PRESENTATION TEAM MEMBER us Fantasma Pedroza DO URINE ORDERABLES Final Resul t Performing Organization Address [facility] Co de Phone Number [facility] [address] [place] [id number], [place] [phone] * STREP A, DNA (10/20/2025 1:08 AM PRESENTATION TEAM MEMBER) SPECIMEN SOURCE THROAT 10/20/2025 1:11 AM PRESENTATION TEAM MEMBER [facility] STREP A MOLECULAR NOT DETECTED NOT DETECTED 10/20/2025 1:52 AM PRESENTATION TEAM MEMBER [facility] SWAB STRUCTURE OF ANTERIOR REGION OF NECK / Unknown 10/20/2025 1:08 AM PRESENTATION TEAM MEMBER us Fantasma Pedroza DO MICROBIOLOGY - GENERAL ORDER ARLENE Final Result Performing Organization Address City/[facility]/ZIP Co de Phone Number [facility] [address] [place] [phone], * RESPIRATORY PCR PNL LIMITED (10/20/2025 1:08 AM PRESENTATION TEAM MEMBER) SPEC DESCRIPTION NASOPHARYNGEAL SWAB 10/20/2025 1:11 AM PRESENTATION TEAM MEMBER [facility] CORONAVIRUS SARS COV 2 PCR (RESP) NEGATIVE NEGATIVE 10/20/2025 2:05 AM PRESENTATION TEAM MEMBER [facility] INFLUENZA A PCR (RESP) NEGATIVE NEGATIVE 10/20/2025 2:05 AM PRESENTATION TEAM MEMBER [facility] INFLUENZA B PCR (RESP) NEGATIVE NEGATIVE 10/20/2025 2:05 AM PRESENTATION TEAM MEMBER [facility] RSV PCR (RESP) NEGATIVE NEGATIVE 10/20/2025 2:05 AM PRESENTATION TEAM MEMBER [facility] SWAB NASOPHARYNGEAL STRUCTURE / Unknown 10/20/2025 1:08 AM PRESENTATION TEAM MEMBER Fantasma Pedroza DO MICROBIOLOGY - GENERAL ORDER ARLENE Final Result [facility] [address] [place] [address], * CTA CHEST PE PROTOCOL (10/16/2025 11:18 AM PRESENTATION TEAM MEMBER) Only the most recent of3 resultswithin the time period is included. Anatomical Region Laterality Modality Chest Computed Tomogra phy 10/16/2025 11:3 6 AM PRESENTATION TEAM MEMBER Impressions 10/16/2025 11:40 AM PRESENTATION TEAM MEMBER IMPRESSION: 1. No evidence of pulmonary emboli. 2. No evidence of focal pulmonary atelectasis or consolidation. Referred By: Interpreted By: Anthony Larios MD, 10/16/2025 11:36 AM Narrative 10/16/2025 11:40 AM PRESENTATION TEAM MEMBER [address] [place] [address] Examination: CTA CHEST PE PROTOCOL Exam time: [...] Procedure Note Anthony Larios MD - 10/16/[address] [place] [address] Examination: CTA CHEST PE PROTOCOL Exam time: [...] Result * CULTURE URINE (10/16/2025 10:40 AM PRESENTATION TEAM MEMBER) Pathologist [facility] [place] SPEC DESCRIPTION URINE CLEAN CATCH 10/16/2025 10:47 AM PRESENTATION TEAM MEMBER [facility] SPECIAL REQUESTS NO SPECIAL REQUEST 10/16/2025 10:47 AM PRESENTATION TEAM MEMBER [facility] CULTURE RESULT NO GROWTH (< OR = 1,000 CFU/ML) 10/18/2025 7:18 AM PRESENTATION TEAM MEMBER [facility] URINE URINE SPECIMEN OBTAINED BY CLEAN CATCH PROCEDURE / Unknown 10/16/2025 10:40 AM PRESENTATION TEAM MEMBER 10/16/2025 7:36 PM PRESENTATION TEAM MEMBER us Nacho Recinos MD MICROBIOLOGY - GENERAL ORDERABLE S Final Result Performing Organization Address City/[facility]/ZIP Co de Phone Number [facility] [address] [place] [address], [place] [phone] [facility] [address] [place] [address], * TROPONIN, QUANT (10/16/2025 10:07 AM PRESENTATION TEAM MEMBER) Only the most recent of4 resultswithin the time period is included. [facility] TROPONIN I HIGH SENSITIVITY 6 0 - 51 ng/L 10/16/2025 10:32 AM PRESENTATION TEAM MEMBER [facility] BLOOD VENOUS BLOOD SPECIMEN / Unknown 10/16/2025 10:07 AM PRESENTATION TEAM MEMBER us Nacho Recinos MD LABORATORY Final Result Performing Organization Address City/[facility]/ZIP Co de Phone Number [facility] [address] [place] [address], * MAGNESIUM (10/16/2025 10:07 AM PRESENTATION TEAM MEMBER) Only the most recent of2 resultswithin the time period is included. Pathologist [facility] [place] MAGNESIUM 1.8 1.8 - 2.4 MG/DL 10/16/2025 10:32 AM PRESENTATION TEAM MEMBER [facility] BLOOD VENOUS BLOOD SPECIMEN / Unknown 10/16/2025 10:07 AM PRESENTATION TEAM MEMBER us Nacho Recinos MD LABORATORY Final Result Performing Organization Address City/[facility]/ZIP Co de Phone Number [facility] [address] [place] [address], * (ABNORMAL) D-DIMER, QUANTITATIVE (10/16/2025 10:07 AM PRESENTATION TEAM MEMBER) Only the most recent of3 resultswithin the time period is included. [facility] D-DIMER 1,108(H) 0 - 500 ng{FEU}/mL 10/16/2025 10:30 AM PRESENTATION TEAM MEMBER [facility] Comment: D-Dimer values less than or [...] BLOOD SPECIMEN / Unknown 10/16/2025 10:07 AM PRESENTATION TEAM MEMBER us Nacho Recinos MD LABORATORY Final Result Performing Organization Address City/[facility]/ZIP Co de Phone Number [facility] [address] [place] [phone], * LIPID PROFILE (ABSTRACTED) (10/08/2025) [facility] CHOLESTEROL [phone] TRIGLYCERIDES [id number] [...] * XR RIBS ADAM (10/07/2025 3:43 PM PRESENTATION TEAM MEMBER) Anatomical Region Laterality Modality Chest Radiographic Jazmin ging 10/07/2025 3:54 PM PRESENTATION TEAM MEMBER Impressions 10/07/2025 3:58 PM PRESENTATION TEAM MEMBER IMPRESSION: 1. No acute cardiopulmonary process identified. 2. Unremarkable right and left ribs. Ordered By: CARLOS RODARTE Interpreted By: Paulino Mitchell MD, 10/07/2025 3:54 PM Narrative 10/07/2025 3:58 PM PRESENTATION TEAM MEMBER [address] [place] [address] Examination: Chest and bilateral ribs. Exam time: [...] Procedure Note Paulino Mitchell MD - 10/07/[address] [place] [address] Examination: Chest and bilateral ribs. Exam time: [...] MD, 10/07/2025 3:54 PM us Carlos Rodarte [employer]LLER-C GENERAL IMAGING Final R esult * XR CHEST PA+LAT (10/07/2025 3:43 PM PRESENTATION TEAM MEMBER) Anatomical Region Laterality Modality Chest Radiographic Jazmin ging 10/07/2025 3:54 PM PRESENTATION TEAM MEMBER Impressions 10/07/2025 3:58 PM PRESENTATION TEAM MEMBER IMPRESSION: 1. No acute cardiopulmonary process identified. 2. Unremarkable right and left ribs. Ordered By: CARLOS RODARTE Interpreted By: Paulino Mitchell MD, 10/07/2025 3:54 PM Narrative 10/07/2025 3:58 PM PRESENTATION TEAM MEMBER [address] [place] [address] Examination: Chest and bilateral ribs. Exam time: [...] Procedure Note Paulino Mitchell MD - 10/07/2025 [place] [id number] [facility] [place] [address] Examination: Chest and bilateral ribs. Exam time: [...] MD, 10/07/2025 3:54 PM us Carlos Rodarte [employer]-C GENERAL IMAGING Final R esult * (ABNORMAL) HEPATIC FUNCTION PANEL (10/05/2025 6:42 PM PRESENTATION TEAM MEMBER) BILIRUBIN TOTAL S/P/B 0.1(L) 0.2 - 1.0 MG/DL 10/05/2025 7:08 PM PRESENTATION TEAM MEMBER [facility] Comment: THIS ASSAY IS NOT RECOMMENDED FOR PATIENTS UNDERGOING TREATMENT WITH ELTROMBOPAG DUE TO THE POTENTIAL FOR FALSELY ELEVATED RESULTS. BILIRUBIN DIRECT S/P/B 0.0 0.0 - 0.2 MG/DL 10/05/2025 7:08 PM PRESENTATION TEAM MEMBER [facility] ALKALINE PHOSPHATASE S/P/B 143(H) 37 - 98 U/L 10/05/2025 7:08 PM PRESENTATION TEAM MEMBER [facility] AST 17 15 - 37 U/L 10/05/2025 7:08 PM [facility] ALT 21 14 - 59 U/L 10/05/2025 7:08 PM [facility] TOTAL PROTEIN S/P/B 7.3 6.4 - 8.2 G/DL 10/05/2025 7:08 PM [facility] ALBUMIN S/P/B 3.6 3.4 - 5.0 G/DL 10/05/2025 7:08 PM [facility] BLOOD VENOUS BLOOD SPECIMEN / Unknown 10/05/2025 6:42 PM PRESENTATION TEAM MEMBER us Kaitlin Colon MD LABORATORY Final Resul t [facility] Formerly [facility], [facility] [place] [address], * BASIC METABOLIC PANEL (10/05/2025 6:42 PM PRESENTATION TEAM MEMBER) Only the most recent of2 resultswithin the time period is included. SODIUM S/P/B 144 136 - 145 MMOL/L 10/05/2025 7:08 PM [facility] POTASSIUM S/P/B 3.7 3.5 - 5.1 MMOL/L 10/05/2025 7:08 PM [facility] CHLORIDE S/P/B 105 98 - 107 MMOL/L 10/05/2025 7:08 PM [facility] CO2 29.9 21.0 - 32.0 MMOL/L 10/05/2025 7:08 PM [facility] GLUCOSE 89 70 - 99 MG/DL 10/05/2025 7:08 PM [facility] Comment: FASTING GLUCOSE 100 TO 125 MG/DL IS CONSISTENT WITH IMPAIRED FASTING GLUCOSE. FASTING GLUCOSE >125 MG/DL IS CONSISTENT WITH DIABETES. RANDOM GLUCOSE >200 MG/DL WITH HYPERGLYCEMIC SYMPTOMS IS CONSISTENT WITH DIABETES. PER ADA GUIDELINES BUN 15 6 - 24 MG/DL 10/05/2025 7:08 PM PRESENTATION TEAM MEMBER [facility] CREATININE S/P/B 0.65 0.55 - 1.02 MG/DL 10/05/2025 7:08 PM [facility] CALCIUM S/P/B 8.5 8.4 - 10.5 MG/DL 10/05/2025 7:08 PM PRESENTATION TEAM MEMBER [facility] ANION GAP 9.1 5.0 - 15.0 MMOL/L 10/05/2025 7:08 PM PRESENTATION TEAM MEMBER [facility] OSMOLALITY (CALC) 298 MOSM/KG 025 7:08 PM [facility] Comment:REFERENCE RANGE NOT ESTABLISHED GFR ESTIMATE >90 >89 ML/MIN/1. 73 M2 10/05/2025 7:08 PM [facility] GFR NOTES GFR REFERENCE S: 10/05/2025 7:08 PM [facility] Comment: THE ESTIMATED GFR IS [...] BLOOD SPECIMEN / Unknown 10/05/2025 6:42 PM PRESENTATION TEAM MEMBER us Kaitlin Colon MD LABORATORY Final Resul t [facility] [address] [place] [address], * (ABNORMAL) CBC, AUTO, NO DIFF (09/12/2025 1:10 PM PRESENTATION TEAM MEMBER) WBC 8.21 4.00 - 10.80 x10'3/uL 09/12/2025 1:17 PM PRESENTATION TEAM MEMBER [facility] RBC 4.34 4.10 - 5.40 x10'6/uL 09/12/2025 1:17 PM PRESENTATION TEAM MEMBER [facility] HGB 11.2(L) 12.0 - 16.0 G/DL 09/12/2025 1:17 PM PRESENTATION TEAM MEMBER [facility] HCT 35.9(L) 36.0 - 47.0 % 09/12/2025 1:17 PM PRESENTATION TEAM MEMBER [facility] MCV 82.7 78.0 - 100.0 FL 09/12/2025 1:17 PM PRESENTATION TEAM MEMBER [facility] MCH 25.8(L) 27.0 - 31.0 PG 09/12/2025 1:17 PM PRESENTATION TEAM MEMBER [facility] MCHC 31.2(L) 33.0 - 36.0 G/DL 09/12/2025 1:17 PM [facility] RDW 14.6(H) 11.5 - 14.5 % 09/12/2025 1:17 PM PRESENTATION TEAM MEMBER [facility] PLT 320 150 - 350 x10'3/uL 09/12/2025 1:17 PM [facility] MPV 9.2 7.4 - 10.4 FL 09/12/2025 1:17 PM [facility] BLOOD VENOUS BLOOD SPECIMEN / Unknown 09/12/2025 1:10 PM PRESENTATION TEAM MEMBER us Emy Irene MD LABORATORY Final Resul t [facility] [address] [place] [address], * PRO-BRAIN NATRIURETIC PEPTIDE (09/12/2025 1:10 PM PRESENTATION TEAM MEMBER) PRO-B TYPE NATRIURETIC PEPTIDE 19 <125 PG/ML 09/12/2025 2:48 PM PRESENTATION TEAM MEMBER [facility] Comment: CUT POINTS ESTABLISHED BY INTERNATIONAL [...] BLOOD SPECIMEN / Unknown 09/12/2025 1:10 PM PRESENTATION TEAM MEMBER Emy Irene MD LABORATORY Final Resul t Performing Organization Address City/[facility]/ZIP Co de Phone Number [facility] [address] [place] [address], * (ABNORMAL) PROTEIN CREAT RATIO URINE (09/12/2025 9:56 AM PRESENTATION TEAM MEMBER) PROTEIN URINE TOTAL RANDOM 21.0(H) <11.9 MG/DL 09/12/2025 10:14 AM PRESENTATION TEAM MEMBER [facility] CREATININE RANDOM (U) 143.0 MG/DL 09/12/2025 10:14 AM PRESENTATION TEAM MEMBER [facility] Comment:REFERENCE RANGE NOT ESTABLISHED PROTEIN/CREATINI NE RATIO 0.1 09/12/2025 10:14 AM PRESENTATION TEAM MEMBER [facility] Comment:CALCULATED VALUE. [facility] REFERENCE RANGE HAS NOT BEEN ESTABLISHED. URINE URINE SPECIMEN OBTAINED BY CLEAN CATCH PROCEDURE / Unknown 09/12/2025 9:56 AM PRESENTATION TEAM MEMBER Emy Irene MD URINE ORDERABLES Final Resu lt [facility] [address] [place] [address], * (ABNORMAL) COMPREHENSIVE METABOLIC PANEL (08/29/2025 8:34 PM PRESENTATION TEAM MEMBER) Only the most recent of2 resultswithin the time period is included. SODIUM S/P/B 136 136 - 145 MMOL/L 08/29/2025 8:55 PM [facility] POTASSIUM S/P/B 3.6 3.5 - 5.1 MMOL/L 08/29/2025 8:55 PM [facility] CHLORIDE S/P/B 102 98 - 107 MMOL/L 08/29/2025 8:55 PM [facility] CO2 23.5 21.0 - 32.0 MMOL/L 08/29/2025 8:55 PM [facility] GLUCOSE 123(H) 70 - 99 MG/DL 08/29/2025 8:55 PM [facility] Comment: FASTING GLUCOSE 100 TO 125 MG/DL IS CONSISTENT WITH IMPAIRED FASTING GLUCOSE. FASTING GLUCOSE >125 MG/DL IS CONSISTENT WITH DIABETES. RANDOM GLUCOSE >200 MG/DL WITH HYPERGLYCEMIC SYMPTOMS IS CONSISTENT WITH DIABETES. PER ADA GUIDELINES BUN 10 6 - 24 MG/DL 08/29/2025 8:55 PM [facility] CREATININE S/P/B 0.48(L) 0.55 - 1.02 MG/DL 08/29/2025 8:55 PM [facility] CALCIUM S/P/B 9.3 8.4 - 10.5 MG/DL 08/29/2025 8:55 PM [facility] BILIRUBIN TOTAL S/P/B 0.2 0.2 - 1.0 MG/DL 08/29/2025 8:55 PM [facility] Comment: THIS ASSAY IS NOT RECOMMENDED FOR PATIENTS UNDERGOING TREATMENT WITH ELTROMBOPAG DUE TO THE POTENTIAL FOR FALSELY ELEVATED RESULTS. ALKALINE PHOSPHATASE S/P/B 137(H) 37 - 98 U/L 08/29/2025 8:55 PM [facility] AST 13(L) 15 - 37 U/L 08/29/2025 8:55 PM [facility] ALT 14 14 - 59 U/L 08/29/2025 8:55 PM [facility] TOTAL PROTEIN S/P/B 6.1(L) 6.4 - 8.2 G/DL 08/29/2025 8:55 PM [facility] ALBUMIN S/P/B 2.4(L) 3.4 - 5.0 G/DL 08/29/2025 8:55 PM PRESENTATION TEAM MEMBER [facility] ANION GAP 10.5 5.0 - 15.0 MMOL/L 08/29/2025 8:55 PM PRESENTATION TEAM MEMBER [facility] OSMOLALITY (CALC) 282 MOSM/KG 025 8:55 PM PRESENTATION TEAM MEMBER [facility] Comment:REFERENCE RANGE NOT ESTABLISHED GFR ESTIMATE >90 >89 ML/MIN/1. 73 M2 08/29/2025 8:55 PM PRESENTATION TEAM MEMBER [facility] GFR NOTES GFR REFERENCE S: 08/29/2025 8:55 PM PRESENTATION TEAM MEMBER [facility] Comment: THE ESTIMATED GFR IS [...] FAILURE: <15 ml/min/1.73 m2 08/29/2025 8:34 PM PRESENTATION TEAM MEMBER us Lester Valle MD LABORATORY Final Result [facility] [address] [place] [address], * (ABNORMAL) CBC W/DIFF AUTOMATED (08/29/2025 8:34 PM PRESENTATION TEAM MEMBER) Only the most recent of2 resultswithin the time period is included. WBC 8.72 4.00 - 10.80 x10'3/uL 08/29/2025 8:39 PM PRESENTATION TEAM MEMBER [facility] RBC 3.94(L) 4.10 - 5.40 x10'6/uL 08/29/2025 8:39 PM PRESENTATION TEAM MEMBER [facility] HGB 10.2(L) 12.0 - 16.0 G/DL 08/29/2025 8:39 PM [facility] HCT 32.0(L) 36.0 - 47.0 % 08/29/2025 8:39 PM [facility] MCV 81.2 78.0 - 100.0 FL 08/29/2025 8:39 PM [facility] MCH 25.9(L) 27.0 - 31.0 PG 08/29/2025 8:39 PM [facility] MCHC 31.9(L) 33.0 - 36.0 G/DL 08/29/2025 8:39 PM [facility] RDW 14.3 11.5 - 14.5 % 08/29/2025 8:39 PM [facility] PLT 217 150 - 350 x10'3/uL 08/29/2025 8:39 PM [facility] MPV 9.5 7.4 - 10.4 FL 08/29/2025 8:39 PM [facility] CBC COMMENT NORMAL REFERENCE RANGE NOT ESTABLISHED FOR THE PROPORTIONAL LEUKOCYTE DIFFERENTIAL. 08/29/2025 8:39 PM [facility] NEUTROPHILS % 63.2 % 08/29/2025 8:39 PM [facility] LYMPHOCYTES % 21.4 % 08/29/2025 8:39 PM [facility] MONOCYTES % 12.5 % 08/29/2025 8:39 PM [facility] EOSINOPHILS % 1.1 % 08/29/2025 8:39 PM [facility] BASOPHILS % 0.1 % 08/29/2025 8:39 PM [facility] IMMATURE GRANS % 1.7 % 08/29/20 8:39 PM [facility] NRBC % 0.0 % 08/29/2025 8:39 PM [facility] ABS. NEUTROPHILS 5.50 1.60 - 8.30 x10'3/uL 08/29/2025 8:39 PM [facility] ABS. LYMPHOCYTES 1.87 0.80 - 4.70 x10'3/uL 08/29/2025 8:39 PM PRESENTATION TEAM MEMBER [facility] ABS. MONOCYTES 1.09 0.00 - 1.50 x10'3/uL 08/29/2025 8:39 PM PRESENTATION TEAM MEMBER [facility] ABS. EOSINOPHILS 0.10 0.00 - 0.40 x10'3/uL 08/29/2025 8:39 PM PRESENTATION TEAM MEMBER [facility] ABS. BASOPHILS 0.01 0.00 - 0.20 x10'3/uL 08/29/2025 8:39 PM PRESENTATION TEAM MEMBER [facility] ABS. IMMATURE GRANULOCYTES 0.15(H) 0.00 - 0.03 x10'3/uL 08/29/2025 8:39 PM PRESENTATION TEAM MEMBER [facility] ABS. NUCLEATED RBC'S 0.00 0.00 - 0.01 x10'3/uL 08/29/2025 8:39 PM PRESENTATION TEAM MEMBER [facility] 08/29/2025 8:34 PM PRESENTATION TEAM MEMBER us Lester Valle MD LABORATORY Final Result [facility] [address] [place] [address], * CORONAVIRUS (COVID-19) ANTIGEN (08/29/2025 8:16 PM PRESENTATION TEAM MEMBER) Only the most recent of2 resultswithin the time period is included. CORONAVIRUS ANTIGEN IA NEGATIVE NEGATIVE 08/29/2025 8:55 PM PRESENTATION TEAM MEMBER [facility] Comment: NEGATIVE RESULTS DO NOT RULE [...] LABORATORIES. SPECIMEN TYPE NASAL 08/29/2025 8:34 PM PRESENTATION TEAM MEMBER [facility] NASAL NASAL STRUCTURE / Unknown 08/29/2025 8:16 PM PRESENTATION TEAM MEMBER us Lester Valle MD MICROBIOLOGY - GENERAL ORDERA BLES Final Result Performing Organization Address City/[facility]/ZIP Co de Phone Number [facility] [address] [place] [address], [place] [phone] * INFLUENZA A & B (08/29/2025 8:16 PM PRESENTATION TEAM MEMBER) Only the most recent of2 resultswithin the time period is included. SPECIMEN TYPE (INFLUENZA) NASAL 08/29/2025 8:21 PM PRESENTATION TEAM MEMBER [facility] INFLUENZA A NEGATIVE NEGATIVE 08/29/2025 8:49 PM PRESENTATION TEAM MEMBER [facility] INFLUENZA B NEGATIVE NEGATIVE 08/29/2025 8:49 PM PRESENTATION TEAM MEMBER [facility] Comment: A NEGATIVE RESULT DOES NOT EXCLUDE INFLUENZA VIRUS INFECTION. IF INFLUENZA IS CIRCULATING IN YOUR COMMUNITY, A DIAGNOSIS OF INFLUENZA SHOULD BE CONSIDERED BASED ON A PATIENT'S CLINICAL PRESENTATION AND EMPIRIC ANTIVIRAL TREATMENT SHOULD BE CONSIDERED IF INDICATED. NASAL STRUCTURE / Unknown 08/29/2025 8:16 PM PRESENTATION TEAM MEMBER us Lester Valle MD MICROBIOLOGY - GENERAL ORDERA BLES Final Result Performing Organization Address [facility] Co de Phone Number [facility] [address] [place] [address], [place] [phone] * RESP SYNCYTIAL VIRUS (08/29/2025 8:16 PM PRESENTATION TEAM MEMBER) Only the most recent of2 resultswithin the time period is included. SPECIMEN TYPE NASOPHARYNGEAL SWAB 08/29/2025 8:21 PM PRESENTATION TEAM MEMBER [facility] RSV NEGATIVE NEGATIVE 08/29/2025 8:49 PM PRESENTATION TEAM MEMBER [facility] NASOPHARYNGEAL SWAB / Unknown 08/29/2025 8:16 PM PRESENTATION TEAM MEMBER us Lester Valle MD MICROBIOLOGY - GENERAL ORDERA BLES Final Result [facility] [address] [place] [address], * (ABNORMAL) POCT glucose (08/29/2025 8:02 PM PRESENTATION TEAM MEMBER) Only the most recent of2 resultswithin the time period is included. GLUCOSE POC 128(H) 70 - 99 MG/DL 08/29/2025 8:04 PM PRESENTATION TEAM MEMBER [facility] 08/29/2025 8:02 PM PRESENTATION TEAM MEMBER Lester Valle MD POCT ORDERABLES - DEVICE Zully l Result [facility] [address] [place] [address], * (ABNORMAL) URINALYSIS (08/29/2025 7:11 PM PRESENTATION TEAM MEMBER) Only the most recent of3 resultswithin the time period is included. COLOR (U) YELLOW 08/29/2025 7:26 PM [facility] TRANSPARENCY CLEAR 08/29/2025 7:26 PM [facility] SPECIFIC GRAVITY (U) 1.030(H) 1.000 - 1.025 08/29/2025 7:26 PM [facility] Comment:EQUAL TO OR GREATER THAN U PH 6.0 5.0 - 8.0 08/29/2025 7:26 PM [facility] LEUKOCYTES (U) NEGATIVE NEGATIVE 08/29/2025 7:26 PM [facility] NITRITES NEGATIVE NEGATIVE 08/29/2025 7:26 PM [facility] PROTEIN RANDOM (U) TRACE(A) NEGATIVE 08/29/2025 7:26 PM [facility] GLUCOSE (U) NEGATIVE NEGATIVE 08/29/2025 7:26 PM [facility] KETONES MG/DL (U) TRACE(A) NEGATIVE 08/29/2025 7:26 PM [facility] UROBILINOGEN 1.0(H) <1.0 EU/DL 08/29/2025 7:26 PM PRESENTATION TEAM MEMBER [facility] BILIRUBIN (U) NEGATIVE NEGATIVE 08/29/2025 7:26 PM PRESENTATION TEAM MEMBER [facility] BLOOD (U) NEGATIVE NEGATIVE 08/29/2025 7:26 PM PRESENTATION TEAM MEMBER [facility] WBC/HPF 0-5 0 - 5 /HPF 08/29/2025 7:26 PM PRESENTATION TEAM MEMBER [facility] RBC/HPF 0-5 0 - 5 /HPF 08/29/2025 7:26 PM PRESENTATION TEAM MEMBER [facility] EPI/LPF FEW /LPF 08/29/2025 7:26 PM PRESENTATION TEAM MEMBER [facility] BACTERIA (U) 2+ /HPF 08/29/2025 7:26 PM PRESENTATION TEAM MEMBER [facility] MUCUS PRESENT 08/29/2025 7:26 PM PRESENTATION TEAM MEMBER [facility] URINE SPECIMEN OBTAINED BY CLEAN CATCH PROCEDURE / Unknown 08/29/2025 7:11 PM PRESENTATION TEAM MEMBER Lester Valle MD URINE ORDERABLES Final Result [facility] Formerly [facility], [facility] [place] [address], * TROPONIN, QUANT (08/18/2025 7:43 PM CDT) [facility] TROPONIN I HIGH SENSITIVITY 4 0 - 51 ng/L 08/18/2025 9:13 PM CDT [facility] 08/18/2025 7:43 PM CDT Nacho Recinos MD LABORATORY Final Result [facility] [address] [place] [address], * DRUG SCREEN RAPID (08/15/2025 11:35 AM CDT) Pathologist [facility] [place] CANNABINOIDS SCREEN (U) NEGATIVE NEGATIVE 08/15/2025 11:57 AM CDT [facility] PHENCYCLIDINE PCP (U) NEGATIVE NEGATIVE 08/15/2025 11:57 AM CDT [facility] COCAINE METABOLITES (U) NEGATIVE NEGATIVE 08/15/2025 11:57 AM CDT [facility] METHAMPHETAMINE SCREEN (U) NEGATIVE NEGATIVE 08/15/2025 11:57 AM CDT [facility] OPIATE SCREEN (U) NEGATIVE NEGATIVE 025 11:57 AM CDT [facility] AMPHETAMINE SCREEN (U) NEGATIVE NEGATIVE 08/15/2025 11:57 AM CDT [facility] BENZODIAZEPINES SCREEN (U) NEGATIVE NEGATIVE 08/15/2025 11:57 AM CDT [facility] TRICYCLIC ANTIDEPRESSANT SCREEN (U) NEGATIVE NEGATIVE 08/15/2025 11:57 AM CDT [facility] METHADONE (U) NEGATIVE NEGATIVE 08/15/2025 11:57 AM CDT [facility] BARBITURATES SCREEN (U) NEGATIVE NEGATIVE 08/15/2025 11:57 AM CDT [facility] OXYCODONE SCREEN (U) NEGATIVE NEGATIVE 08/15/2025 11:57 AM CDT [facility] URINE TOX COMMENT THIS TEST METHODOLOGY IS DESIGNED AND OFFERED A RAPID TURNAROUND, QUALITATIVE SCREENING PROCEDURE TO AID IN THE IMMEDIATE MEDICAL ASSESSMENT OF PATIENTS SUSPECTED OF SUBSTANCE ABUSE. 08/15/2025 11:36 AM CDT [facility] Comment: CLINICAL CONSIDERATION AND PROFESSIONAL JUDGMENT MUST BE APPLIED TO ANY DRUG OF ABUSE TEST RESULT, BOTH POSITIVE AND NEGATIVE. CONFIRMATORY QUANTITATIVE RESULTS ARE AVAILABLE THROUGH OUR [facility]FER[facility]. URINE SPECIMEN / Unknown 08/15/2025 11:35 AM CDT us Yeni Pinto MD URINE ORDERABLES Final Result [facility] [address] [place] [address], * STREP A RAPID (08/14/2025 11:06 AM CDT) SPECIMEN SOURCE THROAT 08/14/2025 11:11 AM CDT [facility] RAPID STREP TEST NEGATIVE NEGATIVE 08/14/2025 11:22 AM CDT [facility] STRUCTURE OF ANTERIOR REGION OF NECK / Unknown 08/14/2025 11:06 AM CDT us Naldo Cadet DO MICROBIOLOGY - GENERAL ORDERAB LES Final Result [facility] [address] [place] [address], from Last 3 Months Insurance [employer] Care Teams Flat Locker Relationship Specialty Start Date End Date Tanner Paige MD [address] [place] [address] PCP - General FAMILY PRACTICE 07/01/24 Janell Celaya APNP [address] [place] [address] NURSE PRACTITIONER 12/01/24 Tara Miranda ANP-BC [address] [place] [address] Nurse Practitioner NURSE PRACTITIONER ADULT HEALTH 10/08/25 Carlos Rodarte NP-C [address] [place] [address] Nurse Practitioner Family 10/25/25
--- OUTSIDE RECORDS SUMMARY | 2025-10-27 12:10 | XMS_ITS | Continuity of Care Document ---
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 Name Role Phone SEAN CARLOS Primary Care [...] Not Available [facility] [address], [place], [address], 03/06/2025 03:58:26 03/06/20 25 03/06/2025 [UNIT Y] ANEUP LOIDY NIPT sex chromosome aneuploidy NOT DETECT ED normal Not Available [facility] [address], [place], [address], 03/06/2025 03:58:26 03/06/20 25 03/06/2025 [UNIT Y] ANEUP LOIDY NIPT monosomy X LOW RISK <1 in 10,000 normal Not Available [facility] [address], [place], [address], 03/06/2025 03:58:26 03/06/20 25 03/06/2025 [UNIT Y] ANEUP LOIDY NIPT trisomy 13 LOW RISK <1 in 10,000 normal Not Available [facility] [address], [place], [address], 03/06/2025 03:58:26 03/06/20 25 03/06/2025 [UNIT Y] ANEUP LOIDY NIPT trisomy 18 LOW RISK <1 in 10,000 normal Not Available [facility] [address], [place], [address], 03/06/2025 03:58:26 03/06/20 25 03/06/2025 [UNIT Y] ANEUP LOIDY NIPT trisomy 21 LOW RISK <1 in 10,000 normal Not Available [facility] [address], [place], [address], 03/06/2025 03:58:26 03/06/20 25 03/06/2025 [UNIT Y] ANEUP LOIDY NIPT sex FEMALE normal Not Available [facility] [address], [place], [address], 03/06/2025 03:58:26 03/06/20 25 03/06/2025 [UNIT Y] ANEUP LOIDY NIPT gestation SINGLE TON normal Not Available [facility] [address], [place], [address], 03/06/2025 03:58:26 03/06/20 25 03/06/2025 [UNIT Y] ANEUP LOIDY NIPT for detailed report, see pdf See PDF normal Not Available [facility] [address], [place], [address], 03/06/2025 03:58:26 03/02/20 25 03/02/2025 CULTU RE: URINE result report SEE RESULT S BELOW Test: Cultu re: Urine Speci men Sourc e: Urine - Clean Catch Speci men Type: Urine Speci men Date: 025 1455 Resul t Date: 2138 Resul t Statu s: Final resul t Abnor mal: No Resul ting Lab: [facility] [address] [facility] [address] Tel: CULTU RE ----- ----- ----- --- No growt h in 1 day (dete ction level of 10,00 0 colon ies / ml.) Not Available [facility] (Lab) [address] [facility], [place], [address], 03/03/2025 22:42:27 03/12/2003/12/2025 CULTU RE: URINE result report SEE RESULT S BELOW Test: Cultu re: Urine Speci men Sourc e: Urine - Clean Catch Speci men Type: Urine Speci men Date: 2024 1600 Resul t Date: 2024 0610 Resul t Statu s: Final resul t Abnor mal: No Resul ting Lab: [facility] [address] [facility] [address] Tel: CULTU RE ----- ----- ----- --- No growt h in 1 day (dete ction level of 10,00 0 colon ies / ml.) Not Available [facility] (Lab) [address] [facility], [place], [address], 03/14/2025 07:15:03 03/12/2003/12/2025 urina lysis , dipst ick Leukocytes ++ Not Available [address], [place], [address], 03/12/2025 16:45:06 03/12/2003/12/2025 urina lysis , dipst ick Protein + Not Available [facility] [address], [place], [address], 03/12/2025 16:45:06 03/12/20 25 03/12/2025 urina lysis , dipst ick pH 5 Not Available [facility] [address], [place], [address], 03/12/2025 16:45:06 03/12/20 25 03/12/2025 urina lysis , dipst ick Blood trace Not Available [facility] [address], [place], [address], 03/12/2025 16:45:06 03/12/20 25 03/12/2025 urina lysis , dipst ick Specific [place] 1.015 Not Available [facility] [address], [place], [address], 03/12/2025 16:45:06 03/12/20 25 03/12/2025 urina lysis , dipst ick Ketone +++ Not Available [facility] [address], [place], [address], 03/12/2025 16:45:06 03/31/20 25 03/31/2025 TSH, REFLE X FREE T4 TSH 0.42 uIU/m L 0.30-5 .33 Not Available [facility] (Lab) [address] [facility], [place], [address], 04/01/2025 03:05:12 03/31/20 25 03/31/2025 CULTU RE: URINE result report SEE RESULT S BELOW Test: Cultu re: Urine Speci men Sourc e: Urine Voide d Speci men Type: Urine Speci men Date: 1710 Resul t Date: 2256 Resul t Statu s: Final resul t Abnor mal: No Resul ting Lab: [facility] [address] [facility] [address] Tel: CULTU RE ----- ----- ----- --- Cultu re resul t (>=3 organ isms prese nt) indic ates possi ble conta minat ion. Repea t cultu re if sympt oms indic ate. Not Available [facility] (Lab) [address], [place], [address], 04/01/2025 23:59:19 03/31/20 25 03/31/2025 urina lysis , dipst ick Leukocytes +1 [facility] [address], [place], [address], 03/31/2025 09:23:13 03/31/20 25 03/31/2025 urina lysis , dipst ick Nitrite normal Not Available [facility] [address], [place], [address], 03/31/2025 09:23:13 03/31/20 25 03/31/2025 urina lysis , dipst ick Urobilinogen normal Not Available [facility] [address], [place], [address], 03/31/2025 09:23:13 03/31/20 25 03/31/2025 urina lysis , dipst ick Protein trace Not Available [facility] [address], [place], [address], 03/31/2025 09:23:13 03/31/20 25 03/31/2025 urina lysis , dipst ick pH 5 Not Available [facility] [address], [place], [address], 03/31/2025 09:23:13 03/31/20 25 03/31/2025 urina lysis , dipst ick Specific [place] 1.020 [facility] Available [facility] [address], [place], [address], 03/31/2025 09:23:13 03/31/20 25 03/31/2025 urina lysis , dipst ick Ketone normal Not Available [facility] [address], [place], [address], 03/31/2025 09:23:13 03/31/20 25 03/31/2025 urina lysis , dipst ick Bilirubin normal Not Available [facility] anna [address], [place], [address], 03/31/2025 09:23:13 03/31/20 25 03/31/2025 urina lysis , dipst ick Glucose normal Not Available [facility] [address], [place], [address], 03/31/2025 09:23:13 03/31/20 25 03/31/2025 urina lysis , dipst ick Appearance normal Not Available [facility] [address], [place], [address], 03/31/2025 09:23:13 03/31/20 25 03/31/2025 urina lysis , dipst ick Color normal Not Available [facility] [address], [place], [address], 03/31/2025 09:23:13 04/01/20 25 04/01/2025 [facility] DENIS bacterial vaginosis (bv), tma Negati ve negati ve Not Available [facility] (Lab) [address] [place], [address], 04/02/2025 14:08:45 04/01/20 25 04/01/2025 [facility], DENIS mekhi species, tma Negati ve negati ve Not Available [facility] (Lab) [address] [place], [address], 04/02/2025 14:08:45 04/01/20 25 04/01/2025 [facility] SWAB PLUS, DENIS mekhi glabrata, tma Negati ve negati ve Not Available [facility] (Lab) [address] [place], [address], 04/02/2025 14:08:45 04/01/20 25 04/01/2025 [facility] SWAB PLUS, DENIS trichomonas vaginalis, tma Negati ve negati ve Not Available [facility] (Lab) [address] [place], [address], 04/02/2025 14:08:45 04/01/20 25 04/01/2025 [facility], DENIS chlamydia trachomatis, PCR Negati ve negati ve Not Available [facility] (Lab) [address] [place], [address], 04/02/2025 14:08:45 04/01/20 25 04/01/2025 [facility], DENIS neisseria [...] ded in this panel . Not Available [facility] (Lab) [address] , [place], [address], 04/02/2025 14:08:45 04/22/2004/22/2025 CULTU RE: URINE result report SEE RESULT S BELOW Test: Cultu re: Urine Speci men Sourc e: Urine Voide d Speci men Type: Urine Speci men Date: 2024 1314 Resul t Date: 2024 0322 Resul t Statu s: Final resul t Abnor mal: No Resul ting Lab: [facility] [address] [facility] [address] Tel: CULTU RE ----- ----- ----- --- No growt h in 1 day (dete ction level of 10,00 0 colon ies / ml.) Not Available [facility] (Lab) [address], [place], [address], 04/24/2025 04:28:01 04/22/20 25 04/22/2025 urina lysis , dipst ick Leukocytes + Not Available [address], [place], [address], 04/22/2025 10:01:51 04/22/20 25 04/22/2025 urina lysis , dipst ick Protein + Not Available [facility] [address], [place], [address], 04/22/2025 10:01:51 04/22/20 25 04/22/2025 urina lysis , dipst ick pH 8 Not Available [facility] [address], [place], [address], 04/22/2025 10:01:51 04/22/20 25 04/22/2025 urina lysis , dipst ick Blood + Not Available [facility] [address], [place], [address], 04/22/2025 10:01:51 04/22/20 25 04/22/2025 urina lysis , dipst ick Specific [place] 1.010 Not Available [facility] [address], [place], [address], 04/22/2025 10:01:51 04/22/20 25 04/22/2025 urina lysis , dipst ick Ketone + Not Available [facility] [address], [place], [address], 04/22/2025 10:01:51 06/23/20 25 06/23/2025 HEMAT OCRIT (HCT) HCT 35.6 % (based on docume nted legal sex) 34.0-4 5.0 Not Available [facility] (Lab) [address] [facility], [place], [address], 06/24/2025 11:45:32 06/23/20 25 06/23/2025 HEMOG LOBIN (HGB) HGB 11.1 g/dL (based on docume nted legal sex) 11.6-1 5.4 low Not Available [facility] (Lab) [address] [facility], [place], [address], 06/24/2025 11:45:32 06/23/20 25 06/23/2025 GTT - GESTA ROLAND L SCREE N, ACOG OB glucose, 1 hour screen 180 mg/dL 70-135 high Not Available [facility] (Lab) [address] [facility], [place], [address], 06/24/2025 11:45:33 06/23/20 25 06/23/2025 HIV 1/2 ANTIG EN/AN TIBOD Y, REFLE X CONFI RMATI ON HIV antigen/anti body Nonrea ctive nonrea ctive HIV-1 antig en and HIV-1 /HIV- 2 antib odies were not detec greg. No labor atory evide nce of HIV infec tion. Not Available [facility] (Lab) [address] [facility], [place], [address], 06/24/2025 11:45:33 06/23/20 25 06/23/2025 RPR SCREE N, REFLE X TITER /CONF IRMAT ION RPR qualitative Nonrea ctive nonrea ctive Not Available [facility] (Lab) [address] [facility], [place], [address], 06/24/2025 11:45:34 07/21/20 25 07/21/2025 CULTU RE: URINE result report SEE RESULT S BELOW Test: Cultu re: Urine Speci men Sourc e: Urine - Clean Catch Speci men Type: Urine Speci men Date: 2024 1024 Resul t Date: 2024 0252 Resul t Statu s: Final resul t Abnor mal: No Resul ting Lab: [facility] [address] [facility] [address] Tel: CULTU RE ----- ----- ----- --- No growt h in 1 day (dete ction level of 10,00 0 colon ies / ml.) Not Available [facility] (Lab) [address], [place], [address], 07/23/2025 03:57:01 07/21/2007/21/2025 urina lysis , dipst ick Leukocytes ++ Not Available [address], [place], [address], 07/21/2025 11:03:04 07/21/20 25 07/21/2025 urina lysis , dipst ick Nitrite neg Not Available [address], [place], [address], 07/21/2025 11:03:04 07/21/20 25 07/21/2025 urina lysis , dipst ick Urobilinogen neg Not Available [facility] [address], [place], [address], 07/21/2025 11:03:04 07/21/20 25 07/21/2025 urina lysis , dipst ick Protein + Not Available [facility] [address], [place], [address], 07/21/2025 11:03:04 07/21/20 25 07/21/2025 urina lysis , dipst ick pH 5 Not Available [facility] [address], [place], [address], 07/21/2025 11:03:04 07/21/20 25 07/21/2025 urina lysis , dipst ick Specific [place] 1.030 Not Available [facility] [address], [place], [address], 07/21/2025 11:03:04 07/21/20 25 07/21/2025 urina lysis , dipst ick Ketone +++ Not Available [facility] [address], [place], [address], 07/21/2025 11:03:04 07/21/20 25 07/21/2025 urina lysis , dipst ick Bilirubin neg Not Available [facility] [address], [place], [address], 07/21/2025 11:03:04 07/21/20 25 07/21/2025 urina lysis , dipst ick Glucose neg Not Available [facility] [address], [place], [address], 07/21/2025 11:03:04 07/21/20 25 07/21/2025 urina lysis , dipst ick Appearance cloudy Not Available [address], [place], [address], 07/21/2025 11:03:04 07/21/20 25 07/21/2025 urina lysis , dipst ick Color dark Not Available [facility] [address], [place], [address], 07/21/2025 11:03:04 08/04/20 25 08/04/2025 CMP(C OMPRE HENSI VE METAB OLIC PANEL ) sodium 138 mmol/ L 133-14 6 Not Available [facility] (Lab) [address] [facility], [place], [address], 08/05/2025 13:39:18 08/04/20 25 08/04/2025 CMP(C OMPRE HENSI VE METAB OLIC PANEL ) potassium 4.0 mmol/ L 3.5-5. 1 Not Available [facility] (Lab) [address] [facility], [place], [address], 08/05/2025 13:39:18 08/04/20 25 08/04/2025 CMP(C OMPRE HENSI VE METAB OLIC PANEL ) chloride 105 mmol/ L 98-107 Not Available [facility] (Lab) [address] [facility], [place], [address], 08/05/2025 13:39:18 08/04/20 25 08/04/2025 CMP(C OMPRE HENSI VE METAB OLIC PANEL ) carbon dioxide 25 mmol/ L 21-31 Not Available [facility] (Lab) [address] [facility], [place], [address], 08/05/2025 13:39:18 08/04/20 25 08/04/2025 CMP(C OMPRE HENSI VE METAB OLIC PANEL ) anion gap 8 mmol/ L 4-13 Not Available [facility] (Lab) [address] [facility], [place], [address], 08/05/2025 13:39:18 08/04/20 25 08/04/2025 CMP(C OMPRE HENSI VE METAB OLIC PANEL ) blood urea nitrogen 10 mg/dL 7-25 Not Available [facility] (Lab) [address] [facility], [place], [address], 08/05/2025 13:39:18 08/04/20 25 08/04/2025 CMP(C OMPRE HENSI VE METAB OLIC PANEL ) creatinine 0.41 mg/dL 0.60-1 .30 low Not Available [facility] (Lab) [address] [facility], [place], [address], 08/05/2025 13:39:18 08/04/20 25 08/04/2025 CMP(C OMPRE HENSI VE METAB OLIC PANEL ) egfrcr (CKD-epi 2020) >90 mL/mi n/1.7 3_m2 >=60 Not Available [facility] (Lab) [address] [facility], [place], [address], 08/05/2025 13:39:18 08/04/20 25 08/04/2025 CMP(C OMPRE HENSI VE METAB OLIC PANEL ) calcium 8.9 mg/dL 8.3-10 .5 Not Available [facility] (Lab) [address] [facility], [place], [address], 08/05/2025 13:39:18 08/04/20 25 08/04/2025 CMP(C OMPRE HENSI VE METAB OLIC PANEL ) glucose 116 mg/dL 70-100 high Not Available [facility] (Lab) [address] [facility], [place], [address], 08/05/2025 13:39:18 08/04/20 25 08/04/2025 CMP(C OMPRE HENSI VE METAB OLIC PANEL ) protein, total 6.1 g/dL 6.4-8. 3 low Not Available [facility] (Lab) [address] [facility], [place], [address], 08/05/2025 13:39:18 08/04/20 25 08/04/2025 CMP(C OMPRE HENSI VE METAB OLIC PANEL ) albumin 3.5 g/dL 3.5-5. 0 Not Available [facility] (Lab) [address] [facility], [place], [address], 08/05/2025 13:39:18 08/04/20 25 08/04/2025 CMP(C OMPRE HENSI VE METAB OLIC PANEL ) ALT 11 units /L 9-43 Not Available [facility] (Lab) [address] [facility], [place], [address], 08/05/2025 13:39:18 08/04/20 25 08/04/2025 CMP(C OMPRE HENSI VE METAB OLIC PANEL ) alkaline phosphatase 98 units /L 34-104 Not Available [facility] (Lab) [address] [facility], [place], [address], 08/05/2025 13:39:18 08/04/20 25 08/04/2025 CMP(C OMPRE HENSI VE METAB OLIC PANEL ) AST 15 units /L 13-39 Not Available [facility] (Lab) [address] [facility], [place], [address], 08/05/2025 13:39:18 08/04/20 25 08/04/2025 CMP(C OMPRE HENSI VE METAB OLIC PANEL ) bilirubin, total 0.3 mg/dL 0.2-1. 2 Not Available [facility] (Lab) [address] [facility], [place], [address], 08/05/2025 13:39:18 08/04/20 25 08/04/2025 BILE ACIDS , TOTAL bile acids, total 4 umol/ L 0-10 Test Perfo rmed by: Luke hernández rn [facility] [address] [address] Not Available [facility] (Lab) [address] [facility], [place], [address], 08/05/2025 13:39:19 03/02/20 25 03/02/2025 US, obste tric, nucha l trans lucen cy No observ ation record ed. [email or web address] [facility] [address], [place], [address], 03/02/2025 13:35:30 03/02/20 25 03/02/2025 US, obste tric, nucha l trans lucen cy No observ ation record ed. [email or web address] [address], [place], [address], 03/03/2025 14:08:39 03/08/20 25 03/08/2025 US, obste tric, 1st trime ster No observ ation record ed. [email or web address] [facility] [address], [place], [address], 03/08/2025 12:22:22 03/08/20 25 03/08/2025 US, obste tric, 1st trime ster No observ ation record ed. [email or web address] [address], [place], [address], 03/10/2025 15:03:13 04/01/20 25 03/24/2025 [email or web address] r monit or No observ ation record ed. [address], [address], 04/08/2025 12:36:45 04/01/20 25 03/22/2025 qamar r monit or No observ ation record ed. [address] (Pulmonary) [address] [place] [address] [place] [address], [address], 04/06/2025 08:59:34 04/20/20 25 04/20/2025 US, obstanna tric, limit ed No observ ation record ed. [email or web address] [facility] [address], [place], [address], 04/20/2025 17:39:30 04/20/20 25 04/20/2025 US, obste tric, follo w-up No observ ation record ed. [email or web address] [address] [place] [address] [address], [place], [address], 04/23/2025 08:32:54 04/28/20 25 04/28/2025 US, obste tric, 2nd or 3rd trime ster No observ ation record ed. [email or web address] [facility] [address], [place], [address], 04/28/2025 17:48:42 04/28/20 25 04/28/2025 US, obste tric, 2nd or 3rd trime ster No observ ation record ed. [email or web address] [address], [place], [address], 05/04/2025 22:16:11 05/07/20 25 05/07/2025 non-s tress test No observ ation record ed. [address], [place], [address], 05/28/2025 13:33:54 05/21/20 25 05/21/2025 CT, head + brain , w/o contr ast No observ ation record ed. [place] [id number] [facility] [address], [place], [address], 05/24/2025 13:48:57 05/28/20 25 05/28/2025 US, obste tric, follo w-up No observ ation record ed. [email or web address] [facility] [address], [place], [address], 05/28/2025 17:32:34 05/28/20 25 05/28/2025 US, obste tric, follo w-up No observ ation record ed. [email or web address] [address], [place], [address], 06/01/2025 15:13:13 06/08/20 25 06/07/2025 US, obste tric, follo w-up No observ ation record ed. [email or web address] [facility] [address], [place], [address], 06/15/2025 10:53:46 07/07/20 25 07/07/2025 US, obste tric, follo w-up No observ ation record ed. [email or web address] [facility] [address], [place], [address], 07/07/2025 13:18:01 07/07/20 25 07/07/2025 US, obste tric, follo w-up No observ ation record ed. [email or web address] [address], [place], [address], 07/07/2025 11:29:37 08/04/20 25 08/04/2025 US, obste tric, follo w-up No observ ation record ed. [email or web address] [facility] [address], [place], [address], 08/04/2025 15:08:50 08/04/20 25 08/04/2025 US, obste tric, follo w-up No observ ation record ed. [email or web address] [address], [place], [address], 08/06/2025 10:41:50 08/11/20 25 08/11/2025 non-s tress test No observ ation record ed. [email or web address] [facility] [address], [place], [address], 08/11/2025 17:37:52 08/11/20 non-s tress test No observ ation record ed. [email or web address] [facility] [address], [place], [address], 08/11/2025 17:38:11 08/15/20 25 08/15/2025 non-s tress test No observ ation record ed. [place] [id number], [place], [address], 08/21/2025 10:18:57 08/15/2008/15/2025 US, obste tric, bioph ysica l profi le No observ ation record ed. [address], [place], [address], 08/17/2025 10:50:53 08/18/2008/18/2025 US, obste tric, bioph ysica l profi le + non-s tress test No observ ation record ed. [email or web address] [facility] [address], [place], [address], 08/18/2025 10:21:39 08/18/2008/18/2025 US, obste tric, bioph ysica l profi le + non-s tress test No observ ation record ed. [email or web address] [address], [place], [address], 08/18/2025 10:35:44 08/18/2008/18/2025 non-s tress test No observ ation record ed. [email or web address] [facility] [address], [place], [address], 08/18/2025 17:34:03 08/18/20 non-s tress test No observ ation record ed. [email or web address] [facility] [address], [place], [address], 08/18/2025 16:06:09 08/25/2008/25/2025 US, obste tric, bioph ysica l profi le + non-s tress test No observ ation record ed. [email or web address] [facility] [address], [place], [address], 08/25/2025 18:52:06 08/25/20 25 08/25/2025 US, obste tric, follo w-up No observ ation record ed. [email or web address] [address], [place], [address], 08/25/2025 15:47:28 08/25/20 25 08/25/2025 non-s tress test No observ ation record ed. [email or web address] [facility] [address], [place], [address], 08/25/2025 18:12:15 08/25/20 non-s tress test No observ ation record ed. [email or web address] [facility] [address], [place], [address], 08/25/2025 17:21:19 08/30/20 25 08/30/2025 non-s tress test No observ ation record ed. [address], [place], [address], 09/15/2025 15:26:49 09/01/20 25 09/01/2025 non-s tress test No observ ation record ed. [place] [id number] [facility] [address], [place], [address], 09/13/2025 11:32:22 09/01/20 25 09/01/2025 US, obste tric No observ ation record ed. [place] [id number] [facility] [address], [place], [address], 09/02/2025 15:56:01 09/01/20 25 09/01/2025 non-s tress test No observ ation record ed. [place] [id number] [facility] [address], [place], [address], 09/02/2025 14:32:38 11/20/09/16/2025 CT, angio gram, head + neck, w/ contr ast No observ ation record ed. [email or web address] [facility] [address], [place], [address], 09/16/2025 20:01:05 09/28/20 25 09/28/2025 non-s tress test No observ ation record ed. [email or web address] [facility] [address], [place], [address], 10/04/2025 16:42:40 Result Notes None recorded. Problems Name Problem SNOMED Code Status Onset Date Resolution Date Notes Provider Name and Address Organization Details Recorded Time Hypereme sis 221229043 Completed phenerga n now prn Asia ramos [facility] 2 16:43:51 Anxiety in pregnanc y [id number] Completed will continue to monitor Asia ramos [facility] 2 16:43:51 Past pregnanc y history of gestatio nal diabetes mellitus [id number] Completed Early 1 hr GTT @ 20wks 11/03 APPT Asia ramos [facility] 2 16:43:51 Spinal muscular atrophy 5133170 Completed Carrier - Not in contact with FOB. Asia ramos [facility] 2 16:43:51 Anxiety [id number] Completed prozac Karina ramos [facility] 4 11:00:46 Nausea [id number] Completed d/c zofran pump 11/08 per pt request Karina ramos [facility] 4 11:00:46 Postpart um hemorrha ge [id number] Completed 2017 with d&c Karina ramos [facility] 4 11:00:46 Normal pregnanc y in multigra jessy [id number] 75834 Completed 201907/05/2021 Encounte r for supervis ion of other normal pregnanc y, 3rd trimeste r;Record ed Elsewher e: No Locat ion: [facility] S ource: EHR Measurer Machine yvrose: N Dennis ce ID: 0001 Gigi lable Time: 10:45:00 AM Karina ramos, [facility] 10:15:27 Gestatio n period, 37 weeks 34933034 Completed 201907/05/2021 37 weeks gestatio n of pregnanc y;Record ed Elsewher e: No Locat ion: [facility] S ource: EHR Measurer Machine yvrose: N Natalyati ce ID: 0001 Gigi lable Time: 09:00:00 AM Karina ramos, [facility] 10:15:[address] Concept Completed 201907/05/2021 Matern care for abnlt fetl hrt rate or rhym, 3rd tri, unsp;Rec orded Elsewher e: No Locat ion: [facility] S ource: EHR Measurer Machine yvrose: N Natalyati ce ID: 0001 Gigi lable Time: 08:45:00 AM Karina ramos [facility] 10:15:29 Gestatio nal diabetes mellitus 57608156 Completed 201907/05/2021 Gestatio nal diabetes mellitus in pregnanc y, diet controll ed;Recor ded Elsewher e: No Locat ion: [facility] S ource: EHR Measurer Machine yvrose: N Natalyati ce ID: 0001 Gigi lable Time: 11:45:00 AM Karina ramos [facility] 10:15:25 Gestatio n period, 38 weeks 24913042 Completed 201907/05/2021 38 weeks gestatio n of pregnanc y;Record ed Elsewher e: No Locat ion: Jaelyn castillo [facility] S ource: EHR Measurer Machine yvrose: N Practi ce ID: 0001 Gigi lable Time: 11:30:00 AM Karina ramos, [facility] 10:15:13 Amenorrh ea 26100912 Completed 202007/10/2021 Tammi Jones null, [facility] 13:08:35 Pregnanc y 26257479 Completed 202003/29/2022 Emma Dykes null, [facility] 12:28:48 Pregnanc y 55229313 Completed 202304/22/2024 Emma Dykes null, [facility] 12:28:48 Headache 78177027 Active 2023 Karina Burroughs null, [facility] 16:19:28 Pregnanc y 37017134 Completed 202309/14/2025 Emma Elkinsfredi null, [facility] 12:28:48 Uncompli cated moderate persiste nt asthma 562731944 Completed 2024 albutero l prn Shawn Bradley MD [address], [place], [address], [facility] 13:08:36 Anxiety 36583061 Completed 2024 sertrali ne started 03/02/25 changed to prozac 10 on Shawn Bradley MD [address], [place], [address], [facility] 5 17:05:48 Nausea and vomiting 12538030 Completed 2024 Shawn Bradely MD [address], [place], [address], [place] [facility] 5 13:20:27 Placenta circumva llata 8384514 Completed 2024 32wk [facility] 09:44:35 Frequent headache 895658024 Completed 2024 transpor t to [facility] 05/21, discharg e 05/23 MFM [...] more than 2-3 times a week. [facility] 10:55:26 Abnormal placenta affectin g manageme nt of mother 95865080 Completed 2024 MCI serial growth [facility] 10:46:25 Iron deficien cy anemia 63591700 Completed 2024 SS MFM tx venofer 200mg x1 HGB 10.6 [facility] 15:21:25 Gestatio nal diabetes mellitus 71839166 Completed 2024 checking bs QID - ruled in GDM Referral faxed to [facility] 14:36:52 Notes:Order faxed to [facility] access 08/10 for PICC line, and home health already caring for pt. Vladimir RDZ at [phone] Problem Notes None recorded. Procedures Surgical History Date Name Laterality Status Provider Name and Address Organization Details Recorded Time 025 SALPINGECTOMY, LAPAROSCOPIC (SURG) completed Not Available [facility] 09/06/2025 11:19:17 025 Date of Last Pap Smear completed Karina Burroughs [facility] 01/28/2025 11:19:42 024 Nexplanon Removal completed Shawn Bradley MD [address], [place], [address], [facility] 08/05/2024 15:09:58 024 Control Implant Insertion completed Anju Mcnamara CNM [address], [place], [address], [facility] 05/08/2024 17:59:34 024 cholecystectomy [...] Name and Address Organization Details Recorded Time 41658 terbutali ne medicatio n anaphylax is Not available Not available 01/27/20252021 19503 RxNorm Karina ramos, [facility] 16:19:27 66977 amoxicill in medicatio n Not available Not available Not available 09/10/2025 723 RxNorm Not Available gene - External Data Service - prod 16:39:37 21523 terbinafi ne medicatio n anaphylax is Not available [facility] 09/10/20252024 92303 RxNorm Not Available [employer] Data [employer] - prod 16:40:54 Medications Name [...] Prescrib ed Elsewher e: Yes [facility] By: prabhjot Lee r [...] n (supplie d by office) insert lot [id number] Exp 01/2026 Not Available Not Available Not Available 28 mg iron-800 mcg tablet 07/05 completed Prescrib ed Elsewher e: Yes [facility] odify By: prabhjot Lee r DateTime : 01/14/20 10:45:00 AM Not Available Not Available Not Available lidocaine 5 % topical ointment APPLY OINTMENT EXTERNAL LY TO RIBS THREE TIMES DAILY NEEDED 01/14 completed Not Available Not Available Not Available IS MANAGER-PNV-DH A 28 mg iron-1 mg-200 mg [...] Details Last Updated DateTime 08/18/2025 162.56 cm 24255.9960 8 g 116/77 mm[Hg] Melyssa Santo [facility] 08/18/2025 10:57:44 Date Recorded Body height Body weight Systolic And Diastolic Provider Name and Address Organization Details Last Updated DateTime 08/18/2025 162.56 cm 66934.9960 8 g 116/77 mm[Hg] Emma Dykes [facility] 08/18/2025 16:03:36 Social History Question Answer Notes LastModified by Organizat ion Details LastModified Time Tobacco Smoking Status Former Smoker Karina ramos, [facility] 07/05/2021 09:06:21 If You Are , What Was Your Level Of Alcohol Consumption Prior To ? Occasional [email or web address] Information not available 03/31/2025 Are You Blind Or Do You Have Difficulty Seeing? No [email or web address] Information not available 07/05/2021 What Is Your Level Of Caffeine Consumption? Heavy [email or web address] Information not available 07/05/2021 In The 14 Days Before Symptom Onset, Have You Had Close Contact With A Laboratory-confir med COVID-19 While That Case Was Ill? No [email or web address] Information not available 07/05/2021 In The 14 Days Before Symptom Onset, Have You Had Close Contact With A Person Who Is Under Investigation For COVID-19 While That Person Was Ill? No [email or web address] Information not available 07/05/2021 Have You Been To An Area Known To Be High Risk For COVID-19? No [email or web address] Information not available 07/05/2021 Are You Deaf Or Do You Have Serious Difficulty Hearing? No [email or web address] Information not available 07/05/2021 What Type Of Diet Are You Following? REGULAR [email or web address] Information not available 07/05/2021 Which Illicit Or Recreational Drugs Have You Used? Marijuana [email or web address] Information not available 07/05/2021 Have You Ever Been Counseled For Unhealthy Alcohol Use? No [email or web address] Information not available 07/05/2021 Do You Use Your Seat Belt Or Car Seat Routinely? Yes Information not available 07/05/2021 Do You Have Smoke And Carbon Monoxide Detectors In Your Home? Yes [email or web address] Information not available 07/05/2021 Do You Use Sunscreen Routinely? Yes [email or web address] Information not available 07/05/2021 Has Tobacco Cessation Counseling Been Provided? No [email or web address] Information not available 07/05/2021 Have You Used IV Drugs? No [email or web address] Information not available 07/05/2021 Do You Have Difficulty Walking Or Climbing Stairs? No [email or web address] Information not available 12/06/2021 Sex: Unknown Functional Status Question Answer Note LastModified by Organizat ion Details LastModified Time Do you use any illicit or recreational drugs? Yes [email or web address] Information not available 07/05/2021 Do you or have you ever used any other forms of tobacco or nicotine? Yes [email or web address] Information not available 07/05/2021 What is your level of alcohol consumption? None [email or web address] Information not available 03/31/2025 Do you or have you ever used smokeless tobacco? Never used smokeless tobacco Information not available 07/05/2021 Are you able to walk independently without assistance or assistive devices? YESWOREST Information not available 07/05/2021 Are you able to care for yourself independently? Yes [email or web address] Information not available 12/06/2021 Do you have difficulty dressing, bathing, grooming, or toileting? No [email or web address] Information not available 12/06/2021 Do you or have you ever used e-cigarettes or vape? Current user of electronic cigarettes [email or web address] Information not available 07/05/2021 What is your exercise level? Occasional [email or web address] Information not available 07/05/2021 Mental Status Question Answer Note LastModified by Organization D etails LastModified Time Do you feel stressed (tense, restless, nervous, or anxious, or unable to sleep at night)? [id number] Information not available 07/05/2021 Family History Relationship Description Onset Age of this Age Resolved Age Notes LastModified by Organization Details LastModified Time Father No current problems or disability [email or web address] Not available 05/2021 09:06:31 Mother No current [...] ICD10 Code Diagnosis IMO Codes Diagnosis Note [id number] [facility] [address] [place] [address] 07/21/2025 09:28:54 07/21/2025 12:36:06 Pain in pelvis 55369278 R10.2 182154 Gestation period, 32 weeks 0497632 Z3A.32 0321781 [id number] Shawn Bradley MD [place] [address] [place] [address] 08/04/2025 14:02:59 08/04/2025 15:06:33 Gestational diabetes mellitus 77278152 O24.410 O43.103 O43.113 Z3A.34 57921581 [id number] [facility] [address] [place] [address] 08/04/2025 14:21:57 08/04/2025 15:26:03 Gestation period, 34 weeks 55114598 Z3A.34 9482586 Pruritic d isorder of skin 7360345408 L29.9 18449 plan labs today, ursadiol BID [id number] [facility] [address] [place] [address] 08/11/2025 14:51:38 08/11/2025 17:16:44 Gestational diabetes mellitus 44875296 O24.414 09115549 [id number] [facility] [address] [address] 08/11/2025 16:25:59 08/11/2025 17:46:32 Gestational diabetes mellitus 53989532 O24.414 84176917 [id number] Shawn Bradley MD [place] [address] [address] 08/18/2025 09:40:51 08/18/2025 10:15:47 Gestational diabetes mellitus 59390242 O24.414 Z3A.36 13542537 [id number] Anju Mcnamara CNM [place] [address] [address] 08/18/2025 09:41:06 08/18/2025 11:24:04 Gestation period, 36 weeks 54265507 Z3A.36 5405064 cont pnv [id number] Anju Mcnamara CNM [place] [address] [address] 08/18/2025 09:41:16 08/18/2025 16:17:31 Gestational diabetes mellitus class A2 50713310 O24.414 44134566 Health Concerns Section Related Observation LastModified by Organization Detai ls LastModified Time None Recorded Concern Status LastModified by Organization Details LastModified Time None Recorded Payers Encounter Date Sequence Insurance Name Policy Number Policy Roberts Covered Member ID Roberts Member ID Guarantor Name 08/18/2025 1 [facility] (MEDICAID HMO) [id number] Yuni Mejia [id number] Yuni Mejia Notes Date Note Type Note Provider Name and Address Organization Details Recorded Time 08/18/2025 text/html Generic HPI TemplateReported by Patient Anju Mcnamara CNM [address], [place], [address], [facility] 08/18/2025 11:23:41 OBGyn Episode Ob Episode Information Episode Created Date Number of Fetuses Patient Bloodtype Patient rh Status Prepregnancy Weight lbs Domestic Partner Domestic Partner Phone Father Name International Sales Manager Status 03/02/20 25 1 B Positive 164 CLOSED Fetus Data First Name Last Name Admitted to NICU Weight (g) Sex Living Outcome Pediatric Complications Fetus ID Race Codes Race Delivery Type Gladis false 4025.62 9 F true Full Term 82160 Vaginal Delivery Problems Problem Notes SDH form completed 5GI consult Tachycardia Holter monitor 72 order- pt sent back on 03-27-25 Cardiology referral faxed per Dr Martínez office calling pt 04/21 to schedule consult scheduled 05/11 11:15AM Problem Name Start Date End Date Resolution Snomed Code Not e Uncomplicated moderate persistent asthma 03/02/2025 566297717 albuterol prn Abnormal placenta affecting management of mother 05/04/2025 62806866 MCI serial grow th us Iron deficiency anemia 05/25/[address] [facility] MFM tx [place] 200mg x1 HGB 10.6 Nausea and vomiting 03/02/2025 00455926 Anxiety 03/02/2025 11004845 sertralin e started 03/02/25 changed to prozac 10 on Gestational diabetes mellitus 07/08/2025 68074899 checking bs QID - ruled in GDM Referral faxed to [facility] 07/07 Frequent headache 05/03/2025 [id number] [place] to [facility] 05/21, discharge 05/23 MFM referral faxed 05/24 SS Neurology consult pending per KAJAL Pittman [facility]- Neuro [facility] unable to see pt due to insurance 05/[facility] 07/05/25 Level US & Consult (see MFM consult zayas recommendations ) regimen prn Imitrex 50mg for acute migraine, vitamin B2 (Riboflavin) 400mg, Coenzyme q10 300mg and magnesium oxide 200 to 600mg daily. minimize use of Excedrin or Tylenol to no more than 2-3 times a week. 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/2025 2134353 32wk growth us Jun Calculation Initial Jun Date Initial Exam Date Initial Exam Provider Initial Ultrasound Date Last Menstrual Period Date Ultra Sound Weeks Gestation 03/02/2025 03/02/202512/11/2024 12 Eighteen To Twenty Week Jnu Update Ultra Sound Date Fundal Height At [...] Weight in lbs Pre/Post Dialysis Refused Weight 158.577829605244 BP Diastolic BP Location Tested BP Systolic [...] Weight in lbs Pre/Post Dialysis Refused Weight 158.295159204102 BP Diastolic BP Location Tested BP Systolic [...] Weight in lbs Pre/Post Dialysis Refused Weight 162.751394063190 BP Diastolic BP Location Tested BP Systolic [...] Type Weight in lbs Pre/Post Dialysis Refused 168.607639769734 BP Diastolic BP Location Tested BP Systolic [...] Type Weight in lbs Pre/Post Dialysis Refused 169.185529046283 BP Diastolic BP Location Tested BP Systolic [...] Weight in lbs Pre/Post Dialysis Refused Weight 175.149939421422 BP Diastolic BP Location Tested BP Systolic [...] Weight in lbs Pre/Post Dialysis Refused Weight 182.093052245549 BP Diastolic BP Location Tested BP Systolic [...] Weight in lbs Pre/Post Dialysis Refused Weight 181.217283927300 BP Diastolic BP Location Tested BP Systolic BP Type 73 L arm 131 sitting Fetus Heart Rate Present Fetus Movement A Yes Comments viral URI testied neg at urg ent care, nausea resolved, efw 68%, +FM plan education and precautions f/u 2 weeks diagnosed GDM, 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, gave list reviewed protein vs carb Flowsheet Date 07/21/2025 Gibson Score Blood Edema Fundus Height Fundus Units Glucose Ketones Leukocytes Nitrite Labor Signs Protein Cervic Dilation Cervic Effacement Cervic Station Type Weight in lbs Pre/Post Dialysis Refused Weight 181.243943166974 BP Diastolic BP Location Tested BP Systolic BP Type 78 L arm 127 sitting Fetus Heart Rate Present A 150 Fetus Movement A Yes Comments rpt urine culture +FM review ed blood sugars, meets with dustless operator today, precautions and education f/u 2 [...] Weight in lbs Pre/Post Dialysis Refused Weight 181.941856822133 BP Diastolic BP Location Tested BP Systolic [...] Weight in lbs Pre/Post Dialysis Refused Weight 183.967329250884 BP Diastolic BP Location Tested BP Systolic [...] Type Weight in lbs Pre/Post Dialysis Refused 184.994121877616 BP Diastolic BP Location Tested BP Systolic [...] Type Weight in lbs Pre/Post Dialysis Refused 184.994737747003 BP Diastolic BP Location Tested BP Systolic [...] Type Weight in lbs Pre/Post Dialysis Refused 184.421175251300 BP Diastolic BP Location Tested BP Systolic [...] Weight in lbs Pre/Post Dialysis Refused Weight 184.458878132695 BP Diastolic BP Location Tested BP Systolic [...] Weight in lbs Pre/Post Dialysis Refused Weight 164.369673883315 BP Diastolic BP Location Tested BP Systolic [...]
--- OUTSIDE RECORDS SUMMARY | 2025-10-27 12:10 | XMS_ITS | Continuity of Care Document ---
Author Organization [facility], [facility] Address [address] [place] [address] Care Team Providers Care Coil Spring Assembler Name Role Phone SEAN CARLOS Primary [...] Not Available [facility] [address], [place], [address], 03/06/2025 03:58:26 03/06/20 25 03/06/2025 [UNIT Y] ANEUP LOIDY NIPT sex chromosome aneuploidy NOT DETECT ED normal Not Available [facility] [address], [place], [address], 03/06/2025 03:58:26 03/06/20 25 03/06/2025 [UNIT Y] ANEUP LOIDY NIPT monosomy X LOW RISK <1 in 10,000 normal Not Available [facility] [address], [place], [address], 03/06/2025 03:58:26 03/06/20 25 03/06/2025 [UNIT Y] ANEUP LOIDY NIPT trisomy 13 LOW RISK <1 in 10,000 normal Not Available [facility] [address], [place], [address], 03/06/2025 03:58:26 03/06/20 25 03/06/2025 [UNIT Y] ANEUP LOIDY NIPT trisomy 18 LOW RISK <1 in 10,000 normal Not Available [facility] [address], [place], [address], 03/06/2025 03:58:26 03/06/20 25 03/06/2025 [UNIT Y] ANEUP LOIDY NIPT trisomy 21 LOW RISK <1 in 10,000 normal Not Available [facility] [address], [place], [address], 03/06/2025 03:58:26 03/06/20 25 03/06/2025 [UNIT Y] ANEUP LOIDY NIPT sex FEMALE normal Not Available [facility] [address], [place], [address], 03/06/2025 03:58:26 03/06/20 25 03/06/2025 [UNIT Y] ANEUP LOIDY NIPT gestation SINGLE TON normal Not Available [facility] [address], [place], [address], 03/06/2025 03:58:26 03/06/20 25 03/06/2025 [UNIT Y] ANEUP LOIDY NIPT for detailed report, see pdf See PDF normal Not Available [facility] [address], [place], [address], 03/06/2025 03:58:26 03/02/20 25 03/02/2025 CULTU RE: URINE result report SEE RESULT S BELOW Test: Cultu re: Urine Speci men Sourc e: Urine - Clean Catch Speci men Type: Urine Speci men Date: 025 1455 Resul t Date: 2138 Resul t Statu s: Final resul t Abnor mal: No Resul ting Lab: [facility] [address] [facility] [address] Tel: CULTU RE ----- ----- ----- --- No growt h in 1 day (dete ction level of 10,00 0 colon ies / ml.) Not Available [facility] (Lab) [address] [facility], [place], [address], 03/03/2025 22:42:27 03/12/2003/12/2025 CULTU RE: URINE result report SEE RESULT S BELOW Test: Cultu re: Urine Speci men Sourc e: Urine - Clean Catch Speci men Type: Urine Speci men Date: 2024 1600 Resul t Date: 2024 0610 Resul t Statu s: Final resul t Abnor mal: No Resul ting Lab: [facility] [address] [facility] [address] Tel: CULTU RE ----- ----- ----- --- No growt h in 1 day (dete ction level of 10,00 0 colon ies / ml.) Not Available [facility] (Lab) [address] [facility], [place], [address], 03/14/2025 07:15:03 03/12/2003/12/2025 urina lysis , dipst ick Leukocytes ++ Not Available [address], [place], [address], 03/12/2025 16:45:06 03/12/2003/12/2025 urina lysis , dipst ick Protein + Not Available [address], [place], [address], 03/12/2025 16:45:06 03/12/20 25 03/12/2025 urina lysis , dipst ick pH 5 Not Available [address], [place], [address], 03/12/2025 16:45:06 03/12/20 25 03/12/2025 urina lysis , dipst ick Blood trace Not Available [address], [place], [address], 03/12/2025 16:45:06 03/12/20 25 03/12/2025 urina lysis , dipst ick Specific Jemison 1.015 Not Available [facility] [address], [place], [address], 03/12/2025 16:45:06 03/12/20 25 03/12/2025 urina lysis , dipst ick Ketone +++ Not Available [address], [place], [address], 03/12/2025 16:45:06 03/31/20 25 03/31/2025 TSH, REFLE X FREE T4 TSH 0.42 uIU/m L 0.30-5 .33 Not Available [facility] (Lab) [address] [facility], [place], [address], 04/01/2025 03:05:12 03/31/20 25 03/31/2025 CULTU RE: URINE result report SEE RESULT S BELOW Test: Cultu re: Urine Speci men Sourc e: Urine Voide d Speci men Type: Urine Speci men Date: 1710 Resul t Date: 2256 Resul t Statu s: Final resul t Abnor mal: No Resul ting Lab: [facility] [address] [facility] [address] Tel: CULTU RE ----- ----- ----- --- Cultu re resul t (>=3 organ isms prese nt) indic ates possi ble conta minat ion. Repea t cultu re if sympt oms indic ate. Not Available [facility] (Lab) [address], [place], [address], 04/01/2025 23:59:19 03/31/20 25 03/31/2025 urina lysis , dipst ick Leukocytes +1 Not Available [facility] [address], [place], [address], 03/31/2025 09:23:13 03/31/20 25 03/31/2025 urina lysis , dipst ick Nitrite normal Not Available [address], [place], [address], 03/31/2025 09:23:13 03/31/20 25 03/31/2025 urina lysis , dipst ick Urobilinogen normal Not Available [facility] [address], [place], [address], 03/31/2025 09:23:13 03/31/20 25 03/31/2025 urina lysis , dipst ick Protein trace Not Available [address], [place], [address], 03/31/2025 09:23:13 03/31/20 25 03/31/2025 urina lysis , dipst ick pH 5 Not Available [address], [place], [address], 03/31/2025 09:23:13 03/31/20 25 03/31/2025 urina lysis , dipst ick Specific Jemison 1.[address] [facility] [address], [place], [address], 03/31/2025 09:23:13 03/31/20 25 03/31/2025 urina lysis , dipst ick Ketone normal Not Available [address], [place], [address], 03/31/2025 09:23:13 03/31/20 25 03/31/2025 urina lysis , dipst ick Bilirubin normal Not Available [facility] anna [address], [place], [address], 03/31/2025 09:23:13 03/31/20 25 03/31/2025 urina lysis , dipst ick Glucose normal Not Available [address], [place], [address], 03/31/2025 09:23:13 03/31/20 25 03/31/2025 urina lysis , dipst ick Appearance normal Not Available [facility] [address], [place], [address], 03/31/2025 09:23:13 03/31/20 25 03/31/2025 urina lysis , dipst ick Color normal Not Available [address], [place], [address], 03/31/2025 09:23:13 04/01/20 25 04/01/2025 [facility]IS bacterial vaginosis (bv), tma Negati ve negati ve Not Available [facility] (Lab) [address] [place] [place], [address], 04/02/2025 14:08:45 04/01/20 25 04/01/2025 [facility], DENIS mekhi species, tma Negati ve negati ve Not Available [facility] (Lab) [address] [place] [place], [address], 04/02/2025 14:08:45 04/01/20 25 04/01/2025 WOMEN 'S HEALT H SWAB PLUS, DENIS mekhi glabrata, tma Negati ve negati ve Not Available [facility] (Lab) [address] [place], [address], 04/02/2025 14:08:45 04/01/20 25 04/01/2025 WOMEN 'S HEALT H SWAB PLUS, DENIS trichomonas vaginalis, tma Negati ve negati ve Not Available [facility] (Lab) [address] [place], [address], 04/02/2025 14:08:45 04/01/20 25 04/01/2025 [facility], DENIS chlamydia trachomatis, PCR Negati ve negati ve Not Available [facility] (Lab) [address] [place], [address], 04/02/2025 14:08:45 04/01/20 25 04/01/2025 WOMEN 'S [...] ded in this panel . Not Available [facility] (Lab) [address] , [place], [address], 04/02/2025 14:08:45 04/22/2004/22/2025 CULTU RE: URINE result report SEE RESULT S BELOW Test: Cultu re: Urine Speci men Sourc e: Urine Voide d Speci men Type: Urine Speci men Date: 2024 1314 Resul t Date: 2024 0322 Resul t Statu s: Final resul t Abnor mal: No Resul ting Lab: [facility] [address] [facility] [address] Tel: CULTU RE ----- ----- ----- --- No growt h in 1 day (dete ction level of 10,00 0 colon ies / ml.) Not Available [facility] (Lab) [address], [place], [address], 04/24/2025 04:28:01 04/22/20 25 04/22/2025 urina lysis , dipst ick Leukocytes + Not Available [address], [place], [address], 04/22/2025 10:01:51 04/22/20 25 04/22/2025 urina lysis , dipst ick Protein + Not Available [address], [place], [address], 04/22/2025 10:01:51 04/22/20 25 04/22/2025 urina lysis , dipst ick pH 8 Not Available [address], [place], [address], 04/22/2025 10:01:51 04/22/20 25 04/22/2025 urina lysis , dipst ick Blood + Not Available [address], [place], [address], 04/22/2025 10:01:51 04/22/20 25 04/22/2025 urina lysis , dipst ick Specific Jemison 1.010 Not Available [facility] [address], [place], [address], 04/22/2025 10:01:51 04/22/20 25 04/22/2025 urina lysis , dipst ick Ketone + Not Available [address], [place], [address], 04/22/2025 10:01:51 06/23/20 25 06/23/2025 HEMAT OCRIT (HCT) HCT 35.6 % (based on docume nted legal sex) 34.0-4 5.0 Not Available [facility] (Lab) [address] [facility], [place], [address], 06/24/2025 11:45:32 06/23/20 25 06/23/2025 HEMOG LOBIN (HGB) HGB 11.1 g/dL (based on docume nted legal sex) 11.6-1 5.4 low Not Available [facility] (Lab) [address] [facility], [place], [address], 06/24/2025 11:45:32 06/23/20 25 06/23/2025 GTT - GESTA ROLAND L SCREE N, ACOG OB glucose, 1 hour screen 180 mg/dL 70-135 high Not Available [facility] (Lab) [address] [facility], [place], [address], 06/24/2025 11:45:33 06/23/20 25 06/23/2025 HIV 1/2 ANTIG EN/AN TIBOD Y, REFLE X CONFI RMATI ON HIV antigen/anti body Nonrea ctive nonrea ctive HIV-1 antig en and HIV-1 /HIV- 2 antib odies were not detec greg. No labor atory evide nce of HIV infec tion. Not Available [facility] (Lab) [address] [facility], [place], [address], 06/24/2025 11:45:33 06/23/20 25 06/23/2025 RPR SCREE N, REFLE X TITER /CONF IRMAT ION RPR qualitative Nonrea ctive nonrea ctive Not Available [facility] (Lab) [address] [facility], [place], [address], 06/24/2025 11:45:34 07/21/20 25 07/21/2025 CULTU RE: URINE result report SEE RESULT S BELOW Test: Cultu re: Urine Speci men Sourc e: Urine - Clean Catch Speci men Type: Urine Speci men Date: 2024 1024 Resul t Date: 2024 0252 Resul t Statu s: Final resul t Abnor mal: No Resul ting Lab: [facility] [address] [facility] [address] Tel: CULTU RE ----- ----- ----- --- No growt h in 1 day (dete ction level of 10,00 0 colon ies / ml.) Not Available [facility] (Lab) [address], [place], [address], 07/23/2025 03:57:01 07/21/2007/21/2025 urina lysis , dipst ick Leukocytes ++ Not Available [address], [place], [address], 07/21/2025 11:03:04 07/21/20 25 07/21/2025 urina lysis , dipst ick Nitrite neg Not Available [address], [place], [address], 07/21/2025 11:03:04 07/21/20 25 07/21/2025 urina lysis , dipst ick Urobilinogen neg Not Available [facility]o hern[facility] [address], [place], [address], 07/21/2025 11:03:04 07/21/20 25 07/21/2025 urina lysis , dipst ick Protein + Not Available [address], [place], [address], 07/21/2025 11:03:04 07/21/20 25 07/21/2025 urina lysis , dipst ick pH 5 Not Available [address], [place], [address], 07/21/2025 11:03:04 07/21/20 25 07/21/2025 urina lysis , dipst ick Specific Jemison 1.030 Not Available [facility] [address], [place], [address], 07/21/2025 11:03:04 07/21/20 25 07/21/2025 urina lysis , dipst ick Ketone +++ Not Available [address], [place], [address], 07/21/2025 11:03:04 07/21/20 25 07/21/2025 urina lysis , dipst ick Bilirubin neg Not Available [facility] [address], [place], [address], 07/21/2025 11:03:04 07/21/20 25 07/21/2025 urina lysis , dipst ick Glucose neg Not Available [address], [place], [address], 07/21/2025 11:03:04 07/21/20 25 07/21/2025 urina lysis , dipst ick Appearance cloudy Not Available [address], [place], [address], 07/21/2025 11:03:04 07/21/20 25 07/21/2025 urina lysis , dipst ick Color dark Not Available [address], [place], [address], 07/21/2025 11:03:04 08/04/20 25 08/04/2025 CMP(C OMPRE HENSI VE METAB OLIC PANEL ) sodium 138 mmol/ L 133-14 6 Not Available [facility] (Lab) [address] [facility], [place], [address], 08/05/2025 13:39:18 08/04/20 25 08/04/2025 CMP(C OMPRE HENSI VE METAB OLIC PANEL ) potassium 4.0 mmol/ L 3.5-5. 1 Not Available [facility] (Lab) [address] [facility], [place], [address], 08/05/2025 13:39:18 08/04/20 25 08/04/2025 CMP(C OMPRE HENSI VE METAB OLIC PANEL ) chloride 105 mmol/ L 98-107 Not Available [facility] (Lab) [address] [facility], [place], [address], 08/05/2025 13:39:18 08/04/20 25 08/04/2025 CMP(C OMPRE HENSI VE METAB OLIC PANEL ) carbon dioxide 25 mmol/ L 21-31 Not Available [facility] (Lab) [address] [facility], [place], [address], 08/05/2025 13:39:18 08/04/20 25 08/04/2025 CMP(C OMPRE HENSI VE METAB OLIC PANEL ) anion gap 8 mmol/ L 4-13 Not Available [facility] (Lab) [address] [facility], [place], [address], 08/05/2025 13:39:18 08/04/20 25 08/04/2025 CMP(C OMPRE HENSI VE METAB OLIC PANEL ) blood urea nitrogen 10 mg/dL 7-25 Not Available [facility] (Lab) [address] [facility], [place], [address], 08/05/2025 13:39:18 08/04/20 25 08/04/2025 CMP(C OMPRE HENSI VE METAB OLIC PANEL ) creatinine 0.41 mg/dL 0.60-1 .30 low Not Available [facility] (Lab) [address] [facility], [place], [address], 08/05/2025 13:39:18 08/04/20 25 08/04/2025 CMP(C OMPRE HENSI VE METAB OLIC PANEL ) egfrcr (CKD-epi 2020) >90 mL/mi n/1.7 3_m2 >=60 Not Available [facility] (Lab) [address] [facility], [place], [address], 08/05/2025 13:39:18 08/04/20 25 08/04/2025 CMP(C OMPRE HENSI VE METAB OLIC PANEL ) calcium 8.9 mg/dL 8.3-10 .5 Not Available [facility] (Lab) [address] [facility], [place], [address], 08/05/2025 13:39:18 08/04/20 25 08/04/2025 CMP(C OMPRE HENSI VE METAB OLIC PANEL ) glucose 116 mg/dL 70-100 high Not Available [facility] (Lab) [address] [facility], [place], [address], 08/05/2025 13:39:18 08/04/20 25 08/04/2025 CMP(C OMPRE HENSI VE METAB OLIC PANEL ) protein, total 6.1 g/dL 6.4-8. 3 low Not Available [facility] (Lab) [address] [facility], [place], [address], 08/05/2025 13:39:18 08/04/20 25 08/04/2025 CMP(C OMPRE HENSI VE METAB OLIC PANEL ) albumin 3.5 g/dL 3.5-5. 0 Not Available [facility] (Lab) [address] [facility], [place], [address], 08/05/2025 13:39:18 08/04/20 25 08/04/2025 CMP(C OMPRE HENSI VE METAB OLIC PANEL ) ALT 11 units /L 9-43 Not Available [facility] (Lab) [address] [facility], [place], [address], 08/05/2025 13:39:18 08/04/20 25 08/04/2025 CMP(C OMPRE HENSI VE METAB OLIC PANEL ) alkaline phosphatase 98 units /L 34-104 Not Available [facility] (Lab) [address] [facility], [place], [address], 08/05/2025 13:39:18 08/04/20 25 08/04/2025 CMP(C OMPRE HENSI VE METAB OLIC PANEL ) AST 15 units /L 13-39 Not Available [facility] (Lab) [address] [facility], [place], [address], 08/05/2025 13:39:18 08/04/20 25 08/04/2025 CMP(C OMPRE HENSI VE METAB OLIC PANEL ) bilirubin, total 0.3 mg/dL 0.2-1. 2 Not Available [facility] (Lab) [address] [facility], [place], [address], 08/05/2025 13:39:18 08/04/20 25 08/04/2025 BILE ACIDS , TOTAL bile acids, total 4 umol/ L 0-10 Test Perfo rmed by: Luke hern[facility]dez [facility]n [facility] [address] [address] Not Available [facility] (Lab) [address] [facility], [place], [address], 08/05/2025 13:39:19 03/02/20 25 03/02/2025 US, obste tric, nucha l trans lucen cy No observ ation record ed. [email or web address] [address], [place], [address], 03/02/2025 13:35:30 03/02/20 25 03/02/2025 US, obste tric, nucha l trans lucen cy No observ ation record ed. [email or web address] [address], [place], [address], 03/03/2025 14:08:39 03/08/20 25 03/08/2025 US, obste tric, 1st trime ster No observ ation record ed. [email or web address] [address], [place], [address], 03/08/2025 12:22:22 03/08/20 25 03/08/2025 US, obste tric, 1st trime ster No observ ation record ed. [email or web address] Esha [address], [place], [address], 03/10/2025 15:03:13 04/01/20 25 03/24/2025 qamar r monit or No observ ation record ed. [address], [address], 04/08/2025 12:36:45 04/01/20 25 03/22/2025 qamar r monit or No observ ation record ed. [address] (Pulmonary) [address] [place] [address] [place] [address], [address], 04/06/2025 08:59:34 04/20/20 25 04/20/2025 US, obstanna tric, limit ed No observ ation record ed. [email or web address] [address], [place], [address], 04/20/2025 17:39:30 04/20/20 25 04/20/2025 US, obste tric, follo w-up No observ ation record ed. [email or web address] Esha [address] [place] [address] [address], [place], [address], 04/23/2025 08:32:54 04/28/20 25 04/28/2025 US, obste tric, 2nd or 3rd trime ster No observ ation record ed. [email or web address] [address], [place], [address], 04/28/2025 17:48:42 04/28/20 25 04/28/2025 US, obste tric, 2nd or 3rd trime ster No observ ation record ed. [email or web address] [address], [place], [address], 05/04/2025 22:16:11 05/07/20 25 05/07/2025 non-s tress test No observ ation record ed. [address], [place], [address], 05/28/2025 13:33:54 05/21/20 25 05/21/2025 CT, head + brain , w/o contr ast No observ ation record ed. [place] [id number] [facility] [address], [place], [address], 05/24/2025 13:48:57 05/28/20 25 05/28/2025 US, obste tric, follo w-up No observ ation record ed. [email or web address] [address], [place], [address], 05/28/2025 17:32:34 05/28/20 25 05/28/2025 US, obste tric, follo w-up No observ ation record ed. [email or web address] [address], [place], [address], 06/01/2025 15:13:13 06/08/20 25 06/07/2025 US, obste tric, follo w-up No observ ation record ed. [email or web address] [facility] [address], [place], [address], 06/15/2025 10:53:46 07/07/20 25 07/07/2025 US, obste tric, follo w-up No observ ation record ed. [email or web address] [address], [place], [address], 07/07/2025 13:18:01 07/07/20 25 07/07/2025 US, obste tric, follo w-up No observ ation record ed. [email or web address] [address], [place], [address], 07/07/2025 11:29:37 08/04/20 25 08/04/2025 US, obste tric, follo w-up No observ ation record ed. [email or web address] [address], [place], [address], 08/04/2025 15:08:50 08/04/20 25 08/04/2025 US, obste tric, follo w-up No observ ation record ed. [email or web address] [address], [place], [address], 08/06/2025 10:41:50 08/11/20 25 08/11/2025 non-s tress test No observ ation record ed. [email or web address] [address], [place], [address], 08/11/2025 17:37:52 08/11/20 non-s tress test No observ ation record ed. [email or web address] [address], [place], [address], 08/11/2025 17:38:11 08/15/20 25 08/15/2025 non-s tress test No observ ation record ed. [place] [id number], [place], [address], 08/21/2025 10:18:57 08/15/2008/15/2025 US, obste tric, bioph ysica l profi le No observ ation record ed. [address], [place], [address], 08/17/2025 10:50:53 08/18/2008/18/2025 US, obste tric, bioph ysica l profi le + non-s tress test No observ ation record ed. [email or web address] [address], [place], [address], 08/18/2025 10:21:39 08/18/2008/18/2025 US, obste tric, bioph ysica l profi le + non-s tress test No observ ation record ed. [email or web address] Esha [address], [place], [address], 08/18/2025 10:35:44 08/18/2008/18/2025 non-s tress test No observ ation record ed. [email or web address] [address], [place], [address], 08/18/2025 17:34:03 08/18/20 non-s tress test No observ ation record ed. [email or web address] [address], [place], [address], 08/18/2025 16:06:09 08/25/2008/25/2025 US, obste tric, bioph ysica l profi le + non-s tress test No observ ation record ed. [email or web address] [address], [place], [address], 08/25/2025 18:52:06 08/25/20 25 08/25/2025 US, obste tric, follo w-up No observ ation record ed. [email or web address] Esha [address], [place], [address], 08/25/2025 15:47:28 08/25/20 25 08/25/2025 non-s tress test No observ ation record ed. [email or web address] [address], [place], [address], 08/25/2025 18:12:15 08/25/20 non-s tress test No observ ation record ed. [email or web address] L[address], [place], [address], 08/25/2025 17:21:19 08/30/20 25 08/30/2025 non-s tress test No observ ation record ed. [address], [place], [address], 09/15/2025 15:26:49 09/01/20 25 09/01/2025 non-s tress test No observ ation record ed. [place] [id number] [facility] [address], [place], [address], 09/13/2025 11:32:22 09/01/20 25 09/01/2025 US, obste tric No observ ation record ed. [place] [id number] [facility] [address], [place], [address], 09/02/2025 15:56:01 09/01/20 25 09/01/2025 non-s tress test No observ ation record ed. [place] [id number] [facility] [address], [place], [address], 09/02/2025 14:32:38 11/20/09/16/2025 CT, angio gram, head + neck, w/ contr ast No observ ation record ed. [email or web address] [facility] [address], [place], [address], 09/16/2025 20:01:05 09/28/20 25 09/28/2025 non-s tress test No observ ation record ed. [facility] [address], [place], [address], 10/04/2025 16:42:40 Result Notes None recorded. Problems Name Problem SNOMED Code Status Onset Date Resolution Date Notes Provider Name and Address Organization Details Recorded Time Hypereme sis 132556136 Completed phenerga n now prn Asia ramos [facility] 2 16:43:51 Anxiety in pregnanc y [id number] Completed will continue to monitor Aisa ramos [facility] 2 16:43:51 Past pregnanc y history of gestatio nal diabetes mellitus [id number] Completed Early 1 hr GTT @ 20wks 11/03 APPT Asia ramos [facility] 2 16:43:51 Spinal muscular atrophy [id number] Completed Carrier - Not in contact with FOB. Asia ramos [facility] 2 16:43:51 Anxiety 29231683 Completed prozac Karina ramos [facility] 4 11:00:46 Nausea [id number] Completed d/c zofran pump 11/08 per pt request Karina ramos [facility] 4 11:00:46 Postpart um hemorrha ge [id number] Completed 2017 with d&c Karina ramos [facility] 4 11:00:46 Normal pregnanc y in multigra jessy [id number] 08469 Completed 201907/05/2021 Encounte r for supervis ion of other normal pregnanc y, 3rd trimeste r;Record ed Elsewher e: No Locat ion: [facility] S ource: EHR Neon Installer yvrose: N Dennis ce ID: 0001 Gigi lable Time: 10:45:00 AM Karina ramos, [facility] 10:15:27 Gestatio n period, 37 weeks 31341779 Completed 201907/05/2021 37 weeks gestatio n of pregnanc y;Record ed Elsewher e: No Locat ion: [facility] S ource: EHR Neon Installer yvrose: N Natalyati ce ID: 0001 Gigi lable Time: 09:00:00 AM Karina ramos, [facility] 10:15:[address] Concept Completed 201907/05/2021 Matern care for abnlt fetl hrt rate or rhym, 3rd tri, unsp;Rec orded Elsewher e: No Locat ion: [facility] S ource: EHR Neon Installer yvrose: N Natalyati ce ID: 0001 Gigi lable Time: 08:45:00 AM Karina ramos [facility] 10:15:29 Gestatio nal diabetes mellitus 52378198 Completed 201907/05/2021 Gestatio nal diabetes mellitus in pregnanc y, diet controll ed;Recor ded Elsewher e: No Locat ion: [facility] S ource: EHR Neon Installer yvrose: N Natalyati ce ID: 0001 Gigi lable Time: 11:45:00 AM Karina ramos [facility] 10:15:25 Gestatio n period, 38 weeks 52210956 Completed 201907/05/2021 38 weeks gestatio n of pregnanc y;Record ed Elsewher e: No Locat ion: [facility] S ource: EHR Neon Installer yvrose: N Practi ce ID: 0001 Gigi lable Time: 11:30:00 AM Karina ramos, [facility] 10:15:13 Amenorrh ea 66396158 Completed 202007/10/2021 Tammi Jones null, [facility] 13:08:35 Pregnanc y 57392821 Completed 202003/29/2022 Emma Dykes null, [facility] 12:28:48 Pregnanc y 35561493 Completed 202304/22/2024 Emma Dykes null, [facility] 12:28:48 Headache 20053011 Active 2023 Karina Burroughs null, [facility] 16:19:28 Pregnanc y 15042780 Completed 202309/14/2025 Emma Elkinsfredi null, [facility] 12:28:48 Uncompli cated moderate persiste nt asthma 042002087 Completed 2024 albutero l prn Shawn Bradley MD [address], [place], [address], [facility] 13:08:36 Anxiety 19746540 Completed 2024 sertrali ne started 03/02/25 changed to prozac 10 on Shawn Bradley MD [address], [place], [address], [facility] 5 17:05:48 Nausea and vomiting 01995806 Completed 2024 Shawn Bradley MD [address], [place], [address], [place] [facility] 5 13:20:27 Placenta circumva llata 6766372 Completed 2024 32wk [facility] 09:44:35 Frequent headache 217547914 Completed 2024 [facility] [...] more than 2-3 times a week. [facility] 10:55:26 Abnormal placenta affectin g manageme nt of mother 31504822 Completed 2024 MCI serial growth [facility] 5 10:46:25 Iron deficien cy anemia 05264033 Completed 2024 SS MFM tx venofer 200mg x1 HGB 10.6 [facility] 5 15:21:25 Gestatio nal diabetes mellitus 37329978 Completed 2024 checking bs QID - ruled in GDM Referral fax[facility] to [facility] 07[facility] 14:36:52 Notes:Order faxed to [facility] access 08/10 for PICC line, and home health already caring for pt. Vladimir RDZ at [phone] Problem Notes None recorded. Procedures Surgical History Date Name Laterality Status Provider Name and Address Organization Details Recorded Time 025 SALPINGECTOMY, LAPAROSCOPIC (SURG) completed Not Available [facility] 11:19:17 025 Date of Last Pap Smear completed Karina Burroughs [facility] 01/28/2025 11:19:42 024 Nexplanon Removal completed Shawn Bradley MD [address], [place], [address], [facility] 08/05/2024 15:09:58 024 Control Implant Insertion completed Anju Mcnamara CNM [address], [place], [address], [facility] 05/08/2024 17:59:34 024 cholecystectomy completed Karina Burroughs [facility] 03/31/2025 09:18:57 018 Dilation and Curettage completed Karina Burroughs [facility] 07/05/2021 10:17:50 Imaging Results None recorded. Procedure Notes None recorded. Medical Equipment None Reported. Allergies Allergen ID Allergen Name Allergen Category Reaction Reaction Severity Criticality Documentation Date Start Date Code Code System Note Provider Name and Address Organization Details Recorded Time 39739 terbutali ne medicatio n anaphylax is Not available Not available 01/27/20252021 42891 RxNorm Karina ramos, [facility] 16:19:27 50852 amoxicill in medicatio n Not available Not available Not available 09/10/2025 723 RxNorm Not Available gene - External Data Service - prod 16:39:37 31717 terbinafi ne medicatio n anaphylax is Not available [facility] 09/10/20252024 19196 RxNorm Not Available geneFidus Writer Data Service - prod 16:40:54 Medications Name [...] Prescrib ed Elsewher e: Yes [facility] By: prabhjot Lee r DateTime [...] n (supplie d by office) insert lot [id number] Exp 01/2026 Not Available Not Available Not Available 28 mg iron-800 mcg tablet 07/05 completed Prescrib ed Elsewher e: Yes [facility] odify By: prabhjot Lee r DateTime : 01/14/20 10:45:00 AM Not Available Not Available Not Available lidocaine 5 % topical ointment APPLY OINTMENT EXTERNAL LY TO RIBS THREE TIMES DAILY NEEDED 01/14 completed Not Available Not Available Not Available CLINICAL EDITOR-PNV-DH A 28 mg iron-1 mg-200 mg capsule [...] Updated DateTime 08/04/2025 162.56 cm 31.1 kg/m2 35471.22 g 112/71 mm[Hg] Toya Perkins [facility] 08/04/2025 15:09:59 Social History Question Answer Notes LastModified by Organizat ion Details LastModified Time Tobacco Smoking Status Former Smoker Karina ramos, [facility] 07/05/2021 09:06:21 If You Are , What Was Your Level Of Alcohol Consumption Prior To ? Occasional [email or web address] Information not available 03/31/2025 Are You Blind Or Do You Have Difficulty Seeing? No [email or web address] Information not available 07/05/2021 What Is Your Level Of Caffeine Consumption? Heavy [email or web address] Information not available 07/05/2021 In The 14 Days Before Symptom Onset, Have You Had Close Contact With A Laboratory-confir med COVID-19 While That Case Was Ill? No [email or web address] Information not available 07/05/2021 In The 14 Days Before Symptom Onset, Have You Had Close Contact With A Person Who Is Under Investigation For COVID-19 While That Person Was Ill? No Information not available 07/05/2021 Have You Been To An Area Known To Be High Risk For COVID-19? No [email or web address] Information not available 07/05/2021 Are You Deaf Or Do You Have Serious Difficulty Hearing? No [email or web address] Information not available 07/05/2021 What Type Of Diet Are You Following? REGULAR [email or web address] Information not available 07/05/2021 Which Illicit Or Recreational Drugs Have You Used? Marijuana [email or web address] Information not available 07/05/2021 Have You Ever Been Counseled For Unhealthy Alcohol Use? No [email or web address] Information not available 07/05/2021 Do You Use Your Seat Belt Or Car Seat Routinely? Yes [email or web address] Information not available 07/05/2021 Do You Have Smoke And Carbon Monoxide Detectors In Your Home? Yes [email or web address] Information not available 07/05/2021 Do You Use Sunscreen Routinely? Yes [email or web address] Information not available 07/05/2021 Has Tobacco Cessation Counseling Been Provided? No [email or web address] Information not available 07/05/2021 Have You Used IV Drugs? No [email or web address] Information not available 07/05/2021 Do You Have Difficulty Walking Or Climbing Stairs? No [email or web address] Information not available 12/06/2021 Sex: Unknown Functional Status Question Answer Note LastModified by Organizat ion Details LastModified Time Do you use any illicit or recreational drugs? Yes Information not available 07/05/2021 Do you or have you ever used any other forms of tobacco or nicotine? Yes [email or web address] Information not available 07/05/2021 What is your level of alcohol consumption? None [email or web address] Information not available 03/31/2025 Do you or have you ever used smokeless tobacco? Never used smokeless tobacco Information not available 07/05/2021 Are you able to walk independently without assistance or assistive devices? YESWOREST [email or web address] Information not available 07/05/2021 Are you able to care for yourself independently? Yes [email or web address] Information not available 12/06/2021 Do you have difficulty dressing, bathing, grooming, or toileting? No [email or web address] Information not available 12/06/2021 Do you or have you ever used e-cigarettes or vape? Current user of electronic cigarettes [email or web address] Information not available 07/05/2021 What is your exercise level? Occasional [email or web address] Information not available 07/05/2021 Mental Status Question Answer Note LastModified by Organization D etails LastModified Time Do you feel stressed (tense, restless, nervous, or anxious, or unable to sleep at night)? 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 O43.103 Z3A.30 1827861 [id number] Anju Mcnamara [facility] [address] [place] [address] 07/07/2025 10:14:33 07/07/2025 11:38:54 Gestation period, 30 weeks 81625777 Z3A.30 4887911 cont pnv Nausea 423284433 R11.0 46431 Gestationa l diabetes mellitus 35678544 O24.419 42078414 [id number] [facility] [address] [place] [address] 07/21/2025 09:28:54 07/21/2025 12:36:06 Pain in pelvis 29382014 R10.2 576919 Gestation period, 32 weeks 0561400 Z3A.32 2680302 [id number] Shawn Bradley MD [place] [address] [place] [address] 08/04/2025 14:02:59 08/04/2025 15:06:33 Gestational diabetes mellitus 71233373 O24.410 O43.103 O43.113 Z3A.34 04187644 [id number] Anju Mcnamara [facility] [address] [place] [address] 08/04/2025 14:21:57 08/04/2025 15:26:03 Gestation period, 34 weeks 65146914 Z3A.34 5013835 Pruritic d isorder of skin 3393084456 L29.9 37367 plan labs today, ursadiol BID Health Concerns Section Related Observation LastModified by Organization Detai ls LastModified Time None Recorded Concern Status LastModified by Organization Details LastModified Time None Recorded Payers Encounter Date Sequence Insurance Name Policy Number Policy Roberts Covered Member ID Roberts Member ID Guarantor Name 08/04/2025 1 [facility] (MEDICAID HMO) [id number] Yuni Mejia [id number] Yuni Mejia Notes Date Note Type Note Provider Name and Address Organization Details Recorded Time 08/04/2025 text/html Generic HPI TemplateReported by Patient Anju Genie Mcnamara CNM [address], [place], [address], [facility] 08/04/2025 15:23:50 OBGyn Episode Ob Episode Information Episode Created Date Number of Fetuses Patient Bloodtype Patient rh Status Prepregnancy Weight lbs Domestic Partner Domestic Partner Phone Father Name Psych Nurse Status 03/02/20 25 1 B Positive 164 CLOSED Fetus Data First Name Last Name Admitted to NICU Weight (g) Sex Living Outcome Pediatric Complications Fetus ID Race Codes Race Delivery Type Ziah false 4025.62 9 F true Full Term 86228 Vaginal Delivery Problems Problem Notes SDH form completed 5GI consult Tachycardia Holter monitor 72 order- pt sent back on 03-27-25 Cardiology referral faxed per Dr Martínez office calling pt 04/21 to schedule consult scheduled 05/11 11:15AM Problem Name Start Date End Date Resolution Snomed Code Not e Uncomplicated moderate persistent asthma 03/02/2025 821124135 albuterol prn Abnormal placenta affecting management of mother 05/04/2025 46739212 MCI serial grow th us Iron deficiency anemia 05/25/2025 17274581 [facility] MFM tx [place] 200mg x1 HGB 10.6 Nausea and vomiting 03/02/2025 80148423 Anxiety 03/02/2025 73452202 sertralin e started 03/02/25 changed to prozac 10 on Gestational diabetes mellitus 07/08/2025 81757730 checking bs QID - ruled in GDM Referral faxed to [facility] 07/07 Frequent headache 05/03/2025 [id number] [place] to [facility] 05/21, discharge 05/23 MFM referral faxed 05/24 SS Neurology consult pending per KAJAL Pittman [facility] Neuro [facility] unable to see pt due to insurance 05/[facility] 07/05/25 Level US & Consult (see MF consult zayas recommendations ) regimen prn Imitrex 50mg for acute migraine, vitamin B2 (Riboflavin) 400mg, Coenzyme q10 300mg and magnesium oxide 200 to 600mg daily. minimize use of Excedrin or Tylenol to no more than 2-3 times a week. 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 went to ed exam done cultures and rx sent, ?FM, await desk monitor results rfilled zofran, precautions and [...] Type Weight in lbs Pre/Post Dialysis Refused 168.771916714585 BP Diastolic BP Location Tested BP Systolic [...] Type Weight in lbs Pre/Post Dialysis Refused 169.017768181526 BP Diastolic BP Location Tested BP Systolic [...] Weight in lbs Pre/Post Dialysis Refused Weight 175.043917170635 BP Diastolic BP Location Tested BP Systolic [...] Weight in lbs Pre/Post Dialysis Refused Weight 182.395795047917 BP Diastolic BP Location Tested BP Systolic [...] Weight in lbs Pre/Post Dialysis Refused Weight 181.641024163910 BP Diastolic BP Location Tested BP Systolic BP Type 73 L arm 131 sitting Fetus Heart Rate Present Fetus Movement A Yes Comments viral URI testied neg at urg ent care, nausea resolved, efw 68%, +FM plan education and precautions f/u 2 weeks diagnosed GDM, plan internal salesperson, gave list reviewed protein vs carb Flowsheet Date 07/21/2025 Gibson Score Blood Edema Fundus Height Fundus Units Glucose Ketones Leukocytes Nitrite Labor Signs Protein Cervic Dilation Cervic Effacement Cervic Station Type Weight in lbs Pre/Post Dialysis Refused Weight 181.255507021136 BP Diastolic BP Location Tested BP Systolic BP Type 78 L arm 127 sitting Fetus Heart Rate Present A 150 Fetus Movement A Yes Comments rpt urine culture +FM review ed blood sugars, meets with internal salesperson today, precautions and education f/u 2 weeks [...] Weight in lbs Pre/Post Dialysis Refused Weight 181.058516437173 BP Diastolic BP Location Tested BP Systolic [...] Weight in lbs Pre/Post Dialysis Refused Weight 183.068344966171 BP Diastolic BP Location Tested BP Systolic [...] Type Weight in lbs Pre/Post Dialysis Refused 184.792211545406 BP Diastolic BP Location Tested BP Systolic [...] Type Weight in lbs Pre/Post Dialysis Refused 184.731929741322 BP Diastolic BP Location Tested BP Systolic [...] Type Weight in lbs Pre/Post Dialysis Refused 184.408063295473 BP Diastolic BP Location Tested BP Systolic [...] Weight in lbs Pre/Post Dialysis Refused Weight 184.200395742864 BP Diastolic BP Location Tested BP Systolic [...] Weight in lbs Pre/Post Dialysis Refused Weight 164.522537661141 BP Diastolic BP Location Tested BP Systolic [...]
--- OUTSIDE RECORDS SUMMARY | 2025-10-27 12:10 | XMS_ITS | Clinical Summary ---
Author Organization [employer] [address] - [address][birth year] Address [address] [facility] 3[address] [place] [address] Phone Care Team Providers Care Financial Sales Associate Name Role Phone Unavailable Primary Care Provider Unavailabl e Allergies No known active allergies Medications vits15/iron/fol ic/dss ( VIT 63-KHEN-EDQLM-D SS ORAL) Take by mouth. 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
--- OUTSIDE RECORDS SUMMARY | 2025-10-27 12:10 | XMS_ITS ---
Author Organization Unknown Address [address] [place] [phone] Phone Care Team Providers Care Rn Correctional Name Role Phone SHAYNA CRESPO Attending Unavailable [...] DIFF - Collect Date/T randall: 07/26/2024 20:25 [facility] ID: [id number] [address] [place], [place], [phone] LOINC: 46945-7 Test Value Unit Reference Range Code Code System Flag WBC 9.1 10^3uL L=4.8 H=10.8 RBC 4.76 10^6uL L=4.20 H=5.40 HEMOGLOBIN 12.7 g/dL L=12.0 H=16.0 718-7 LOINC HEMATOCRIT 40.5 VOL% L=37.0 H=47.0 4544-3 LOINC MCV 85.1 fL L=81.0 H=99.0 MCH 26.7 pg L=27.0 H=32.0 L MCHC 31.4 g/dL L=32.0 H=36.0 L PLATELETS 290 10^3uL L=100 H=400 17851-2 LOINC RDW 13.2 % L=11.7 H=15.5 %GRAN 55.5 % L=40.0 H=70.0 82693-6 LOINC %LYMPH 33.0 % L=20.0 H=45.0 736-9 LOINC %MONO 8.4 % L=2.0 H=10.0 02137-2 LOINC %EOS 2.5 % L=0.0 H=6.0 713-8 LOINC %BASO 0.4 % L=0.0 H=3.0 706-2 LOINC #NEUT 5.0 10^3uL L=1.9 H=7.6 58911-3 LOINC #LYMPH 3.0 10^3uL L=0.9 H=4.9 45623-2 LOINC #MONO 0.8 10^3uL L=0.1 H=0.9 00925-2 LOINC #EOS 0.2 10^3uL L=0.0 H=0.6 712-0 LOINC #BASO 0.04 10^3uL L=0.00 H=0.10 11939-1 LOINC #IM GRANS 0.0 10^3uL L=0.0 H=7.0 32041-5 LOINC %IM GRANS 0.2 % L=0.0 H=5.0 74498-3 LOINC %NRB 0.0 L=0.0 H=0.2 79139-5 LOINC #NRB 0.000 L=0.000 H=0.012 65465-3 LOINC MANUAL DIFF NOT INDICATED RBC MORPH NOT INDICATED COMPREHENSIVE METABOLIC PANE L - Collect Date/Time: 07/26/2024 20:25 [facility] ID: [id number] [address] [place], [place], [phone] LOINC: 93436-8 Test Value Unit Reference Range Code Code [...] 2028-9 LOINC ANION GAP 16 L=10 H=20 03327-5 LOINC OSMOLALITY 296 mOs/kG L=280 H=296 23506-3 LOINC BUN/CREAT 25.0 3097-3 LOINC CALCIUM 10.1 mg/dL L=8.3 H=10.5 82295-9 LOINC AST 25 U/L L=15 H=46 1920-8 LOINC ALT 20 U/L L=9 H=72 1742-6 LOINC ALKALINE PHOS 71 U/L L=38 H=126 6768-6 LOINC TOTAL BILI 0.4 mg/dL L=0.2 H=1.3 1975-2 LOINC ALBUMIN 4.7 G/dL L=3.5 H=5.0 1751-7 LOINC TOTAL PROTEIN 8.2 g/L L=6.3 H=8.2 2885-2 LOINC A/G RATIO 1.3 94444-5 LOINC AGE 24 96844-3 LOINC eGFR NON-AFR 93 ml/min eGFR AFR AMER 113 ml/min CPK - Collect Date/Time: 20:25 [facility] ID: [id number] [address] [place] [address], [phone] LOINC: 2156-6 Test Value Unit Reference Range Code Code System Flag CPK 92 U/L L=30 H=170 2156-6 LOINC LACTIC ACID - Collect Date/T randall: 07/26/2024 20:25 [facility] ID: [id number] [address] [place] [address], [phone] LOINC: 31036-6 Test Value Unit Reference Range Code Code System Flag LACTIC ACID 0.7 mmol/L L=0.7 H=2.6 22787-4 LOINC MAGNESIUM - Collect Date/Patricio e: 07/26/2024 20:25 [facility] ID: [id number] [address] [place] [address], [id number] LOINC: 26687-2 Test Value Unit Reference Range Code Code System Flag MAGNESIUM 1.9 mg/dL L=1.6 H=2.3 66149-9 LOINC Social History Type Status Start Date End Date Code Code Syst em Smoking History Never smoker (Never Smoked) 547771134 SNOMED CT Sex Female Assessment You had [...] 6002 SNOMED-CT UNSPECIFIED ABDOMINAL PAIN active 215 44278 SNOMED-CT Allergies and Adverse Reactions Allergy Substance Reaction Severity Start Date Concern Status Co de Code System AMOXICILLIN Active 723 RxNorm TERBUTALINE Active 95447 RxNorm Plan of Treatment Stress Test Treadmill 01/21/2025 Manager Gift Consult 04/27/2025 Encounters Encounter Diagnosis Start Date [...]
--- OUTSIDE RECORDS SUMMARY | 2025-10-27 12:10 | XMS_ITS | Continuity of Care Document ---
Author Organization [facility] Address [address] [place] [address] [place] [address] Care Team Providers Care Rn Cvicu Name Role Phone CARLOS ESTRADA Primary Care Provider Assessment No assessment recorded. Plan of Treatment Reminders Order Date Submit Date Provider Last Modified By Organization Details Last Modified Time Details Appointments None recorded. Lab None recorded. Referral None recorded. Procedures None recorded. Surgeries None recorded. Imaging None recorded. Medication Orders nifedipine ER 30 mg tablet,exte nded release 24 hr 2024 025 [facility] [address] [place], [address], 5 15:19:36 Xanax 0.25 mg tablet 2024 025 [facility] [address] [place], [address], 5 15:24:15 Patient TargetsNo targets recorded. Patient InstructionsNo instructions recorded. Reason for Referral None Reported. Results Created Date Observation Date Name Description Value Unit Range Abnormal Flag Note LastModifiedBy Organization Detail LastModifiedTime 03/06/20 25 03/06/2025 [UNIT Y] ANEUP LOIDY NIPT fraction 5.7% normal Not Available [facility] [address], [place], [address], 03/06/2025 03:58:26 03/06/20 25 03/06/2025 [UNIT Y] ANEUP LOIDY NIPT sex chromosome aneuploidy NOT DETECT ED normal Not Available [facility] [address], [place], [address], 03/06/2025 03:58:26 03/06/20 25 03/06/2025 [UNIT Y] ANEUP LOIDY NIPT monosomy X LOW RISK <1 in 10,000 normal Not Available [facility] [address], [place], [address], 03/06/2025 03:58:26 03/06/20 25 03/06/2025 [UNIT Y] ANEUP LOIDY NIPT trisomy 13 LOW RISK <1 in 10,000 normal Not Available [facility] [address], [place], [address], 03/06/2025 03:58:26 03/06/20 25 03/06/2025 [UNIT Y] ANEUP LOIDY NIPT trisomy 18 LOW RISK <1 in 10,000 normal Not Available [facility] [address], [place], [address], 03/06/2025 03:58:26 03/06/20 25 03/06/2025 [UNIT Y] ANEUP LOIDY NIPT trisomy 21 LOW RISK <1 in 10,000 normal Not Available [facility] [address], [place], [address], 03/06/2025 03:58:26 03/06/20 25 03/06/2025 [UNIT Y] ANEUP LOIDY NIPT sex FEMALE normal Not Available [facility] [address], [place], [address], 03/06/2025 03:58:26 03/06/20 25 03/06/2025 [UNIT Y] ANEUP LOIDY NIPT gestation SINGLE TON normal Not Available [facility] [address], [place], [address], 03/06/2025 03:58:26 03/06/2003/06/2025 [UNIT Y] ANEUP KIANA NIPT for detailed report, see pdf See PDF normal Not Available [facility] [address], [place], [address], 03/06/2025 03:58:26 03/02/2003/02/2025 CULTU RE: URINE result report SEE RESULT S BELOW Test: Cultu re: Urine Speci men Sourc e: Urine - Clean Catch Speci men Type: Urine Speci men Date: 1455 Resul t Date: 8 Resul t Statu s: Final resul t Abnor mal: No Resul ting Lab: [facility] [address] [facility] [address] Tel: CULTU RE ----- ----- ----- --- No growt h in 1 day (dete ction level of 10,00 0 colon ies / ml.) Not Available [facility] (Lab) [address] [facility], [place], [address], 03/03/2025 22:42:27 03/12/2003/12/2025 CULTU RE: URINE result report SEE RESULT S BELOW Test: Cultu re: Urine Speci men Sourc e: Urine - Clean Catch Speci men Type: Urine Speci men Date: 2024 1600 Resul t Date: 2024 0610 Resul t Statu s: Final resul t Abnor mal: No Resul ting Lab: [facility] [address] [facility] [address] Tel: CULTU RE ----- ----- ----- --- No growt h in 1 day (dete ction level of 10,00 0 colon ies / ml.) Not Available [facility] (Lab) [address] [facility], [place], [address], 03/14/2025 07:15:03 03/12/2003/12/2025 urina lysis , dipst ick Leukocytes ++ Not Available [facility] [address], [place], [address], 03/12/2025 16:45:06 03/12/20 25 03/12/2025 urina lysis , dipst ick Protein + Not Available [place] [address], [place], [address], 03/12/2025 16:45:06 03/12/20 25 03/12/2025 urina lysis , dipst ick pH 5 Not Available [place] [address], [place], [address], 03/12/2025 16:45:06 03/12/20 25 03/12/2025 urina lysis , dipst ick Blood trace Not Available [place] [address], [place], [address], 03/12/2025 16:45:06 03/12/20 25 03/12/2025 urina lysis , dipst ick Specific [place] 1.015 Not Available [facility] [address], [place], [address], 03/12/2025 16:45:06 03/12/20 25 03/12/2025 urina lysis , dipst ick Ketone +++ Not Available [place] [address], [place], [address], 03/12/2025 16:45:06 03/31/20 25 03/31/2025 TSH, REFLE X FREE T4 TSH 0.42 uIU/m L 0.30-5 .33 Not Available [facility] (Lab) [address], [place], [address], 04/01/2025 03:05:12 03/31/20 25 03/31/2025 CULTU RE: URINE result report SEE RESULT S BELOW Test: Cultu re: Urine Speci men Sourc e: Urine Voide d Speci men Type: Urine Speci men Date: 1710 Resul t Date: 2256 Resul t Statu s: Final resul t Abnor mal: No Resul ting Lab: [facility] [address] [facility] [address] Tel: CULTU RE ----- ----- ----- --- Cultu re resul t (>=3 organ isms prese nt) indic ates possi ble conta minat ion. Repea t cultu re if sympt oms indic ate. Not Available [facility] (Lab) [address], [place], [address], 04/01/2025 23:59:19 03/31/20 25 03/31/2025 urina lysis , dipst ick Leukocytes +1 Not Available [facility] [address], [place], [address], 03/31/2025 09:23:13 03/31/20 25 03/31/2025 urina lysis , dipst ick Nitrite normal Not Available [place] [address], [place], [address], 03/31/2025 09:23:13 03/31/20 25 03/31/2025 urina lysis , dipst ick Urobilinogen normal Not Available [facility] david [address], [place], [address], 03/31/2025 09:23:13 03/31/20 25 03/31/2025 urina lysis , dipst ick Protein trace Not Available [place] [address], [place], [address], 03/31/2025 09:23:13 03/31/20 25 03/31/2025 urina lysis , dipst ick pH 5 Not Available [place] [address], [place], [address], 03/31/2025 09:23:13 03/31/20 25 03/31/2025 urina lysis , dipst ick Specific [place] 1.020 Not Available [facility] n[address], [place], [address], 03/31/2025 09:23:13 03/31/20 25 03/31/2025 urina lysis , dipst ick Ketone normal Not Available [place] [address], [place], [address], 03/31/2025 09:23:13 03/31/20 25 03/31/2025 urina lysis , dipst ick Bilirubin normal Not Available [facility] [address], [place], [address], 03/31/2025 09:23:13 03/31/20 25 03/31/2025 urina lysis , dipst ick Glucose normal Not Available [place] [address], [place], [address], 03/31/2025 09:23:13 03/31/20 25 03/31/2025 urina lysis , dipst ick Appearance normal Not Available [facility] [address], [place], [address], 03/31/2025 09:23:13 03/31/20 25 03/31/2025 urina lysis , dipst ick Color normal Not Available [place] [address], [place], [address], 03/31/2025 09:23:13 04/01/20 25 04/01/2025 WOMEN 'S HEALT H SWAB PLUS, DENIS bacterial vaginosis (bv), tma Negati ve negati ve Not Available [facility] (Lab) [address], [place], [address], 04/02/2025 14:08:45 04/01/20 25 04/01/2025 WOMEN 'S HEALT H SWAB PLUS, DENIS mekhi species, tma Negati ve negati ve Not Available [facility] (Lab) [address] [place], [address], 04/02/2025 14:08:45 04/01/20 25 04/01/[address] [facility] DENIS mekhi glabrata, tma Negati ve negati ve Not Available [facility] (Lab) [address] [place], [address], 04/02/2025 14:08:45 04/01/20 25 04/01/[address] [facility], DENIS trichomonas vaginalis, tma Negati ve negati ve Not Available [facility] (Lab) [address] [place], [address], 04/02/2025 14:08:45 04/01/20 25 04/01/[address] [facility], DENIS chlamydia trachomatis, PCR Negati ve negati ve Not Available [facility] (Lab) [address] [place], [address], 04/02/2025 14:08:45 04/01/20 25 04/01/[address] [facility], DENIS neisseria gonorrhoeae, [...] ded in this panel . Not Available [facility] (Lab) [address] [place], [address], 04/02/2025 14:08:45 04/22/20 25 04/22/2025 CULTU RE: URINE result report SEE RESULT S BELOW Test: Cultu re: Urine Speci men Sourc e: Urine Voide d Speci men Type: Urine Speci men Date: 2024 1314 Resul t Date: 2024 0322 Resul t Statu s: Final resul t Abnor mal: No Resul ting Lab: [facility] [address] [facility] [address] Tel: CULTU RE ----- ----- ----- --- No growt h in 1 day (dete ction level of 10,00 0 colon ies / ml.) Not Available [facility] (Lab) [address], [place], [address], 04/24/2025 04:28:01 04/22/2004/22/2025 urina lysis , dipst ick Leukocytes + Not Available [address], [place], [address], 04/22/2025 10:01:51 04/22/20 25 04/22/2025 urina lysis , dipst ick Protein + Not Available [place] [address], [place], [address], 04/22/2025 10:01:51 04/22/20 25 04/22/2025 urina lysis , dipst ick pH 8 Not Available [place] [address], [place], [address], 04/22/2025 10:01:51 04/22/20 25 04/22/2025 urina lysis , dipst ick Blood + Not Available [place] [address], [place], [address], 04/22/2025 10:01:51 04/22/20 25 04/22/2025 urina lysis , dipst ick Specific [place] 1.010 Not Available [facility] [address], [place], [address], 04/22/2025 10:01:51 04/22/2004/22/2025 urina lysis , dipst ick Ketone + Not Available [place] [address], [place], [address], 04/22/2025 10:01:51 06/23/20 25 06/23/2025 HEMAT OCRIT (HCT) HCT 35.6 % (based on docume nted legal sex) 34.0-4 5.0 Not Available [facility] (Lab) [address] [facility], [place], [address], 06/24/2025 11:45:32 06/23/20 25 06/23/2025 HEMOG LOBIN (HGB) HGB 11.1 g/dL (based on docume nted legal sex) 11.6-1 5.4 low Not Available [facility] (Lab) [address] [facility], [place], [address], 06/24/2025 11:45:32 06/23/20 25 06/23/2025 GTT - GESTA ROLAND Hugo Sanchez, ACOG OB glucose, 1 hour screen 180 mg/dL 70-135 high Not Available [facility] (Lab) [address] [facility], [place], [address], 06/24/2025 11:45:33 06/23/20 25 06/23/2025 HIV 1/2 ANTIG EN/AN TIBOD Y, REFLE X CONFI RMATI ON HIV antigen/anti body Nonrea ctive nonrea ctive HIV-1 antig en and HIV-1 /HIV- 2 antib odies were not detec greg. No labor atory evide nce of HIV infec tion. Not Available [facility] (Lab) [address] [facility], [place], [address], 06/24/2025 11:45:33 06/23/2006/23/2025 RPR SCREE N, REFLE X TITER /CONF IRMAT ION RPR qualitative Nonrea ctive nonrea ctive Not Available [facility] (Lab) [address] [facility], [place], [address], 06/24/2025 11:45:34 07/21/2007/21/2025 CULTU RE: URINE result report SEE RESULT S BELOW Test: Cultu re: Urine Speci men Sourc e: Urine - Clean Catch Speci men Type: Urine Speci men Date: 2024 1024 Resul t Date: 2024 0252 Resul t Statu s: Final resul t Abnor mal: No Resul ting Lab: [facility] [address] [facility] [address] Tel: CULTU RE ----- ----- ----- --- No growt h in 1 day (dete ction level of 10,00 0 colon ies / ml.) Not Available [facility] (Lab) [address], [place], [address], 07/23/2025 03:57:01 07/21/2007/21/2025 urina lysis , dipst ick Leukocytes ++ Not Available [address], [place], [address], 07/21/2025 11:03:04 07/21/20 25 07/21/2025 urina lysis , dipst ick Nitrite neg Not Available [address], [place], [address], 07/21/2025 11:03:04 07/21/20 25 07/21/2025 urina lysis , dipst ick Urobilinogen neg Not Available [facility] [address], [place], [address], 07/21/2025 11:03:04 07/21/20 25 07/21/2025 urina lysis , dipst ick Protein + Not Available [place] [address], [place], [address], 07/21/2025 11:03:04 07/21/20 25 07/21/2025 urina lysis , dipst ick pH 5 Not Available [place] [address], [place], [address], 07/21/2025 11:03:04 07/21/20 25 07/21/2025 urina lysis , dipst ick Specific [place] 1.030 Not Available [facility] [address], [place], [address], 07/21/2025 11:03:04 07/21/20 25 07/21/2025 urina lysis , dipst ick Ketone +++ Not Available [place] [address], [place], [address], 07/21/2025 11:03:04 07/21/20 25 07/21/2025 urina lysis , dipst ick Bilirubin neg Not Available [facility] [address], [place], [address], 07/21/2025 11:03:04 07/21/20 25 07/21/2025 urina lysis , dipst ick Glucose neg Not Available [place] [address], [place], [address], 07/21/2025 11:03:04 07/21/20 25 07/21/2025 urina lysis , dipst ick Appearance cloudy Not Available [facility] [address], [place], [address], 07/21/2025 11:03:04 07/21/20 25 07/21/2025 urina lysis , dipst ick Color dark Not Available [place] [address], [place], [address], 07/21/2025 11:03:04 08/04/20 25 08/04/2025 CMP(C OMPRE HENSI VE METAB OLIC PANEL ) sodium 138 mmol/ L 133-14 6 Not Available [facility] (Lab) [address] [facility], [place], [address], 08/05/2025 13:39:18 08/04/20 25 08/04/2025 CMP(C OMPRE HENSI VE METAB OLIC PANEL ) potassium 4.0 mmol/ L 3.5-5. 1 Not Available [facility] (Lab) [address] [facility], [place], [address], 08/05/2025 13:39:18 08/04/20 25 08/04/2025 CMP(C OMPRE HENSI VE METAB OLIC PANEL ) chloride 105 mmol/ L 98-107 Not Available [facility] (Lab) [address] [facility], [place], [address], 08/05/2025 13:39:18 08/04/20 25 08/04/2025 CMP(C OMPRE HENSI VE METAB OLIC PANEL ) carbon dioxide 25 mmol/ L 21-31 Not Available [facility] (Lab) [address] [facility], [place], [address], 08/05/2025 13:39:18 08/04/20 25 08/04/2025 CMP(C OMPRE HENSI VE METAB OLIC PANEL ) anion gap 8 mmol/ L 4-13 Not Available [facility] (Lab) [address] [facility], [place], [address], 08/05/2025 13:39:18 08/04/20 25 08/04/2025 CMP(C OMPRE HENSI VE METAB OLIC PANEL ) blood urea nitrogen 10 mg/dL 7-25 Not Available [facility] (Lab) [address] [facility], [place], [address], 08/05/2025 13:39:18 08/04/20 25 08/04/2025 CMP(C OMPRE HENSI VE METAB OLIC PANEL ) creatinine 0.41 mg/dL 0.60-1 .30 low Not Available [facility] (Lab) [address] [facility], [place], [address], 08/05/2025 13:39:18 08/04/20 25 08/04/2025 CMP(C OMPRE HENSI VE METAB OLIC PANEL ) egfrcr (CKD-epi 2020) >90 mL/mi n/1.7 3_m2 >=60 Not Available [facility] (Lab) [address] [facility], [place], [address], 08/05/2025 13:39:18 08/04/20 25 08/04/2025 CMP(C OMPRE HENSI VE METAB OLIC PANEL ) calcium 8.9 mg/dL 8.3-10 .5 Not Available [facility] (Lab) [address] [facility], [place], [address], 08/05/2025 13:39:18 08/04/20 25 08/04/2025 CMP(C OMPRE HENSI VE METAB OLIC PANEL ) glucose 116 mg/dL 70-100 high Not Available [facility] (Lab) [address] [facility], [place], [address], 08/05/2025 13:39:18 08/04/20 25 08/04/2025 CMP(C OMPRE HENSI VE METAB OLIC PANEL ) protein, total 6.1 g/dL 6.4-8. 3 low Not Available [facility] (Lab) [address] [facility], [place], [address], 08/05/2025 13:39:18 08/04/20 25 08/04/2025 CMP(C OMPRE HENSI VE METAB OLIC PANEL ) albumin 3.5 g/dL 3.5-5. 0 Not Available [facility] (Lab) [address] [facility], [place], [address], 08/05/2025 13:39:18 08/04/20 25 08/04/2025 CMP(C OMPRE HENSI VE METAB OLIC PANEL ) ALT 11 units /L 9-43 Not Available [facility] (Lab) [address] [facility], [place], [address], 08/05/2025 13:39:18 08/04/20 25 08/04/2025 CMP(C OMPRE HENSI VE METAB OLIC PANEL ) alkaline phosphatase 98 units /L 34-104 Not Available [facility] (Lab) [address] [facility], [place], [address], 08/05/2025 13:39:18 08/04/20 25 08/04/2025 CMP(C OMPRE HENSI VE METAB OLIC PANEL ) AST 15 units /L 13-39 Not Available [facility] (Lab) [address] [facility], [place], [address], 08/05/2025 13:39:18 08/04/20 25 08/04/2025 CMP(C OMPRE HENSI VE METAB OLIC PANEL ) bilirubin, total 0.3 mg/dL 0.2-1. 2 Not Available [facility] (Lab) [address] [place], [address], 08/05/2025 13:39:18 08/04/20 25 08/04/2025 BILE ACIDS , TOTAL bile acids, total 4 umol/ L 0-10 Test Perfo rmed by: [facility] [address] [address] Not Available [facility] (Lab) [address], [place], [address], 08/05/2025 13:39:19 03/02/20 25 03/02/2025 US, obste tric, nucha l trans lucen cy No observ ation record ed. [email or web address] [place] [address], [place], [address], 03/02/2025 13:35:30 03/02/20 25 03/02/2025 US, obste tric, nucha l trans lucen cy No observ ation record ed. [email or web address] [address], [place], [address], 03/03/2025 14:08:39 03/08/20 25 03/08/2025 US, obste tric, 1st trime ster No observ ation record ed. [email or web address] [place] [address], [place], [address], 03/08/2025 12:22:22 03/08/20 25 03/08/2025 US, obste tric, 1st trime ster No observ ation record ed. [email or web address] [address], [place], [address], 03/10/2025 15:03:13 04/01/20 25 03/24/2025 [email or web address] r monit or No observ ation record ed. [address], [address], 04/08/2025 12:36:45 04/01/20 25 03/22/2025 qamar r monit or No observ ation record ed. [address] (Pulmonary) [address] [place] [address], [place], [address], 04/06/2025 08:59:34 04/20/20 25 04/20/2025 US, obste tric, limit ed No observ ation record ed. [email or web address] [place] [address], [place], [address], 04/20/2025 17:39:30 04/20/20 25 04/20/2025 US, obste tric, follo w-up No observ ation record ed. [email or web address] [address] [address], [place], [address], 04/23/2025 08:32:54 04/28/20 25 04/28/2025 US, obste tric, 2nd or 3rd trime ster No observ ation record ed. [email or web address] [place] [address], [place], [address], 04/28/2025 17:48:42 04/28/20 25 04/28/2025 US, obste tric, 2nd or 3rd trime ster No observ ation record ed. [address], [place], [address], 05/04/2025 22:16:11 05/07/20 25 05/07/2025 non-s tress test No observ ation record ed. [address], [place], [address], 05/28/2025 13:33:54 05/21/20 25 05/21/2025 CT, head + brain , w/o contr ast No observ ation record ed. [email or web address], [place], [address], 05/24/2025 13:48:57 05/28/20 25 05/28/2025 US, obste tric, follo w-up No observ ation record ed. [email or web address] [place] [address], [place], [address], 05/28/2025 17:32:34 05/28/20 25 05/28/2025 US, obste tric, follo w-up No observ ation record ed. [address], [place], [address], 06/01/2025 15:13:13 06/08/20 25 06/07/2025 US, obste tric, follo w-up No observ ation record ed. [email or web address] [facility] [address] [facility], [place], [address], 06/15/2025 10:53:46 07/07/20 25 07/07/2025 US, obste tric, follo w-up No observ ation record ed. [email or web address] [place] [address], [place], [address], 07/07/2025 13:18:01 07/07/20 25 07/07/2025 US, obste tric, follo w-up No observ ation record ed. [email or web address] [address], [place], [address], 07/07/2025 11:29:37 08/04/20 25 08/04/2025 US, obste tric, follo w-up No observ ation record ed. [email or web address] [place] [address], [place], [address], 08/04/2025 15:08:50 08/04/20 25 08/04/2025 US, obste tric, follo w-up No observ ation record ed. [email or web address] [place] [address], [place], [address], 08/06/2025 10:41:50 08/11/20 25 08/11/2025 non-s tress test No observ ation record ed. [place] [address], [place], [address], 08/11/2025 17:37:52 08/11/20 non-s tress test No observ ation record ed. [email or web address] [place] [address], [place], [address], 08/11/2025 17:38:11 08/15/2008/15/2025 non-s tress test No observ ation record ed. [address], [place], [address], 08/21/2025 10:18:57 08/15/2008/15/2025 US, obste tric, bioph ysica l profi le No observ ation record ed. [address], [place], [address], 08/17/2025 10:50:53 08/18/2008/18/2025 US, obste tric, bioph ysica l profi le + non-s tress test No observ ation record ed. [email or web address] [place] [address], [place], [address], 08/18/2025 10:21:39 08/18/2008/18/2025 US, obste tric, bioph ysica l profi le + non-s tress test No observ ation record ed. [email or web address] [address], [place], [address], 08/18/2025 10:35:44 08/18/2008/18/2025 non-s tress test No observ ation record ed. [place] [address], [place], [address], 08/18/2025 17:34:03 08/18/20 non-s tress test No observ ation record ed. [email or web address] [place] [address], [place], [address], 08/18/2025 16:06:09 08/25/20 25 08/25/2025 US, obste tric, bioph ysica l profi le + non-s tress test No observ ation record ed. [email or web address] [place] [address], [place], [address], 08/25/2025 18:52:06 08/25/20 25 08/25/2025 US, obste tric, follo w-up No observ ation record ed. [email or web address] [address] [address], [place], [address], 08/25/2025 15:47:28 08/25/2008/25/2025 non-s tress test No observ ation record ed. [address], [place], [address], 08/25/2025 18:12:15 08/25/20 non-s tress test No observ ation record ed. [email or web address] [place] [address], [place], [address], 08/25/2025 17:21:19 08/30/20 25 08/30/2025 non-s tress test No observ ation record ed. [email or web address] [place] [id number] [facility] [address] [facility], [place], [address], 09/15/2025 15:26:49 09/01/20 25 09/01/2025 non-s tress test No observ ation record ed. [email or web address] [facility] [address] [facility] [address], [place], [address], 09/13/2025 11:32:22 09/01/20 25 09/01/2025 US, obste tric No observ ation record ed. [email or web address] [facility] [address] [facility] [address], [place], [address], 09/02/2025 15:56:01 09/01/20 25 09/01/2025 non-s tress test No observ ation record ed. [email or web address] [facility] [address], [place], [address], 09/02/2025 14:32:38 09/16/20 25 09/16/2025 CT, angio gram, head + neck, w/ contr ast No observ ation record ed. [email or web address] [facility] [address], [place], [address], 09/16/2025 20:01:05 09/28/20 25 09/28/2025 non-s tress test No observ ation record ed. [email or web address] [facility] [address], [place], [address], 10/04/2025 16:42:40 Result Notes None recorded. Problems Name Problem SNOMED Code Status Onset Date Resolution Date Notes Provider Name and Address Organization Details Recorded Time Hypereme sis [id number] Completed phenerga n now prn Asia ramos [facility] 2 16:43:51 Anxiety in pregnanc y [id number] [id number] Completed will continue to monitor Asiaamadeo ramos [facility] 2 16:43:51 Past pregnanc y history of gestatio nal diabetes mellitus [id number] Completed Early 1 hr GTT @ 20wks 11/03 APPT Asia arias [facility] 2 16:43:51 Spinal muscular atrophy [id number] Completed Carrier - Not in contact with FOB. Asia arias [facility] [facility] 2 16:43:51 Anxiety 89636190 Completed prozac Karina Burroughs [facility], [facility] 4 11:00:46 Nausea 049587522 Completed d/c zofran pump 11/08 per pt request Karina Burroughs null, [facility] 4 11:00:46 Postpart um hemorrha ge [id number] Completed 2017 with d&c Karina ramos [facility] 4 11:00:46 Normal pregnanc y in multigra jessy [id number] 11180 Completed 201907/05/2021 Encounte r for supervis ion of other normal pregnanc y, 3rd trimeste r;Record ed Elsewher e: No Locat ion: [facility] S ource: EHR Division Order Technician yvrose: N Practi ce ID: [id number] Gigi lable Time: 10:45:00 AM Karina ramos [facility] 1 10:15:27 Gestatio n period, 37 weeks 98666065 Completed 201907/05/2021 37 weeks gestatio n of pregnanc y;Record ed Elsewher e: No Locat ion: [facility] S ource: EHR Division Order Technician yvrose: N Practi ce ID: 0001 Gigi lable Time: 09:00:00 AM Karina ramos [facility] 10:15:[address] Concept Completed 201907/05/2021 Matern care for abnlt fetl hrt rate or rhym, 3rd tri, unsp;Rec orded Elsewher e: No Locat ion: [facility] S ource: EHR Division Order Technician yvrose: N Practi ce ID: 0001 Gigi lable Time: 08:45:00 AM Karina ramos [facility] 10:15:29 Gestatio nal diabetes mellitus 32656920 Completed 201907/05/2021 Gestatio nal diabetes mellitus in pregnanc y, diet controll ed;Recor ded Elsewher e: No Locat ion: [facility] S ource: EHR Division Order Technician yvrose: N Practi ce ID: 0001 Gigi lable Time: 11:45:00 AM Karina ramos [facility] 10:15:25 Gestatio n period, 38 weeks 43744515 Completed 201907/05/2021 38 weeks gestatio n of pregnanc y;Record ed Elsewher e: No Locat ion: Ja[facility] cast[facility] S ource: EHR Division Order Technician yvrose: N Practi ce ID: [id number] Gigi lable Time: 11:30:00 AM Karina Burroughs null, [facility] 10:15:13 Amenorrh ea 32132042 Completed 202007/10/2021 Tammi Jones null, [facility] 13:08:35 Pregnanc y 79324257 Completed 202003/29/2022 Emma Dykes [facility], [facility] 5 12:28:48 Pregnanc y 15138793 Completed 202304/22/2024 Emma Dykes null, [facility] 5 12:28:48 Headache 28899316 Active 2023 Karina Burroughs null, [facility] 16:19:28 Pregnanc y 93306276 Completed 202309/14/2025 Emma Dykes null, [facility] 5 12:28:48 Uncompli cated moderate persiste nt asthma 393888813 Completed 2024 albutero l prn Shawn Bradley MD [address], [place], [address], [facility] 13:08:36 Anxiety 54384182 Completed 2024 sertrali ne started 03/02/25 changed to prozac 10 on Shawn Bradley MD [address], [place], [address], [facility] 5 17:05:48 Nausea and vomiting 83095688 Completed 2024 Shawn Bradley MD [address], [place], [address], [facility] 5 13:20:27 Placenta circumva llata 7822210 Completed 2024 32wk [facility] 09:44:35 Frequent headache 103734087 Completed 2024 transpor t to [facility] 05/21, discharg e 05/23 [facility] referral faxed 05/24 [facility] per KAJAL Pittman [facility]- [facility] unable to see pt [...] than 2-3 times a week. Ryann ramos [facility] 5 10:55:26 Abnormal placenta affectin g manageme nt of mother 03284343 Completed 2024 MCI serial growth Ryann ramos [facility] 5 10:46:25 Iron deficien cy anemia 50613466 Completed 2024 SS MFM tx venofer 200mg x1 HGB 10.6 Ryann ramos [facility] 5 15:21:25 Gestatio nal diabetes mellitus 35850551 Completed 2024 checking bs QID - ruled in GDM Referral faxed to [facility] 07/07 Ryann ramos [facility] 14:36:52 Notes:Order faxed to [facility] r access 08/10 for PICC line, and home health already caring for pt. Vladimir RDZ at [phone] Problem Notes None recorded. Procedures Surgical History Date Name Laterality Status Provider Name and Address Organization Details Recorded Time 025 SALPINGECTOMY, LAPAROSCOPIC (SURG) completed Not Available [facility] 09/06/2025 11:19:17 025 Date of Last Pap Smear completed Karina Burroughs [facility] 01/28/2025 11:19:42 024 Nexplanon Removal completed Shawn Bradley MD [address], [place], [address], [facility] 08/05/2024 15:09:58 024 Control Implant Insertion completed Anju Mcnamara CNM [address], [place], [address], [facility] 05/08/2024 17:59:34 024 cholecystectomy completed Karina Burroughs [facility] 03/31/2025 09:18:57 018 Dilation and Curettage completed Karina Burroughs [facility] 07/05/2021 10:17:50 Imaging Results None recorded. Procedure Notes None recorded. Medical Equipment None Reported. Allergies Allergen ID Allergen Name Allergen Category Reaction Reaction Severity Criticality Documentation Date Start Date Code Code System Note Provider Name and Address Organization Details Recorded Time 41302 terbutali ne medicatio n anaphylax is Not available Not available 01/27/20252021 05603 RxNorm Karina ramos, [facility] 16:19:27 98720 amoxicill in medicatio n Not available Not available Not available 09/10/2025 723 RxNorm Not Available gene - External Data Service - prod 16:39:37 10338 terbinafi ne medicatio n anaphylax is Not available high 09/10/20252024 49790 RxNorm Not Available [facility] - External Data Service - prod 16:40:54 [...] Prescrib ed Elsewher e: Yes Loca tion: [facility] odify By: prabhjot barrera DateTime : 01/14/20 [...] n (supplie d by office) insert lot [id number] Exp 01/2026 Not Available Not Available Not Available 28 mg iron-800 mcg tablet 07/05 completed Prescrib ed Elsewher e: Yes Loca tion: [facility] odify By: prabhjot barrera DateTime : 01/14/20 10:45:00 AM Not Available Not Available Not Available lidocaine 5 % topical ointment APPLY OINTMENT EXTERNAL LY TO RIBS THREE TIMES DAILY NEEDED 01/14 completed Not Available Not Available Not Available [employer]PER[employer]PN[employer]-DH A 28 mg iron-1 mg-200 mg [...] and Address Organization Details Last Updated DateTime 09/20/2025 162.56 cm 28.2 kg/m2 05995.15 g 152/98 mm[Hg] Melyssa Santo [facility] 09/20/2025 15:11:55 Social History Question Answer Notes LastModified by Organizat ion Details LastModified Time Tobacco Smoking Status Former Smoker Karina ramos, [facility] 07/05/2021 09:06:21 If You Are , What Was Your Level Of Alcohol Consumption Prior To ? Occasional [email or web address] Information not available 03/31/2025 Are You Blind Or Do You Have Difficulty Seeing? No [email or web address] Information not available 07/05/2021 What Is Your Level Of Caffeine Consumption? Heavy [email or web address] Information not available 07/05/2021 In The 14 Days Before Symptom Onset, Have You Had Close Contact With A Laboratory-confir med COVID-19 While That Case Was Ill? No [email or web address] Information not available 07/05/2021 In The 14 Days Before Symptom Onset, Have You Had Close Contact With A Person Who Is Under Investigation For COVID-19 While That Person Was Ill? No Information not available 07/05/2021 Have You Been To An Area Known To Be High Risk For COVID-19? No [email or web address] Information not available 07/05/2021 Are You Deaf Or Do You Have Serious Difficulty Hearing? No [email or web address] Information not available 07/05/2021 What Type Of Diet Are You Following? REGULAR [email or web address] Information not available 07/05/2021 Which Illicit Or Recreational Drugs Have You Used? Marijuana [email or web address] Information not available 07/05/2021 Have You Ever Been Counseled For Unhealthy Alcohol Use? No [email or web address] Information not available 07/05/2021 Do You Use Your Seat Belt Or Car Seat Routinely? Yes [email or web address] Information not available 07/05/2021 Do You Have Smoke And Carbon Monoxide Detectors In Your Home? Yes Information not available 07/05/2021 Do You Use Sunscreen Routinely? Yes [email or web address] Information not available 07/05/2021 Has Tobacco Cessation Counseling Been Provided? No [email or web address] Information not available 07/05/2021 Have You Used IV Drugs? No [email or web address] Information not available 07/05/2021 Do You Have Difficulty Walking Or Climbing Stairs? No [email or web address] Information not available 12/06/2021 Sex: Unknown Functional Status Question Answer Note LastModified by Organizat ion Details LastModified Time Do you use any illicit or recreational drugs? Yes [email or web address] Information not available 07/05/2021 Do you or have you ever used any other forms of tobacco or nicotine? Yes [email or web address] Information not available 07/05/2021 What is your level of alcohol consumption? None [email or web address] Information not available 03/31/2025 Do you or have you ever used smokeless tobacco? Never used smokeless tobacco [email or web address] Information not available 07/05/2021 Are you able to walk independently without assistance or assistive devices? YESWOREST [email or web address] Information not available 07/05/2021 Are you able to care for yourself independently? Yes [email or web address] Information not available 12/06/2021 Do you have difficulty dressing, bathing, grooming, or toileting? No [email or web address] Information not available 12/06/2021 Do you or have you ever used e-cigarettes or vape? Current user of electronic cigarettes [email or web address] Information not available 07/05/2021 What is your exercise level? Occasional [email or web address] Information not available 07/05/2021 Mental Status Question Answer Note LastModified by Organization D etails LastModified Time Do you feel stressed (tense, restless, nervous, or anxious, or unable to sleep at night)? [id number] [email or web address] Information not available 07/05/2021 Family History Relationship Description Onset Age of this Age Resolved Age Notes LastModified by Organization Details LastModified Time Father No current problems or disability [email or web address] Not available 05/2021 09:06:31 Mother No current problems or disability [email or web address] Not available 05/2021 09:06:31 Medical History Condition [...] ICD10 Code Diagnosis IMO Codes Diagnosis Note [id number] Shawn Bradley MD [place] [address] [place] [address] 08/25/2025 14:26:29 08/25/2025 15:14:02 Gestational diabetes mellitus 64203758 O24.414 96797040 [id number] Anju Mcnamara [facility] [address] [place] [address] 08/25/2025 14:26:57 08/25/2025 15:53:52 Gestation period, 37 weeks 83998580 Z3A.37 0560711 continue vitamin 593367 [facility] [address] [place] [address] 08/25/2025 16:48:00 08/25/2025 17:20:42 Gestational diabetes mellitus 82062631 O24.419 62805627 [id number] Shawn Bradley MD [place] [address],[place] [address] 09/13/2025 15:30:32 09/13/2025 20:43:16 [id number] Shawn Bradley MD [place] [address],[place] [address] 09/14/2025 12:04:57 09/15/2025 08:16:47 Anxiety 92697715 F41.9 51962 this patient presents for severe anxiety. She [...] was given precaution s and instructio ns. [id number] Shawn Bradley MD [place] [address] [address] 09/20/2025 14:55:10 09/20/2025 15:43:32 Hypertension AND/OR vomiting complicating childbirth AND/OR puerperium 193870655 O13.9 55311808 Anxiety 85895441 F41.9 63013 25-year-ol d female with severe anxiety and elevated blood pressures. We discussed her anxiety. We discussed her current treatment. We discussed treatment ideas. Patient would like a PRN anxiety med. We discussed the risks, benefits, and alternativ es to benzodiaze pines. She is prescribed Xanax. She understand s I would do this on a very limited basis. We agreed to treat her blood pressure more effectivel y. She was given the Procardia. She is given precaution s on hypotensio n. Spent over 20 minutes on her care in total. Health Concerns Section Related Observation LastModified by Organization Detai ls LastModified Time None Recorded Concern Status LastModified by Organization Details LastModified Time None Recorded Payers Encounter Date Sequence Insurance Name Policy Number Policy Roberts Covered Member ID Roberts Member ID Guarantor Name 09/20/2025 1 [facility] (MEDICAID HMO) [id number] Yuni Mejia [id number] Yuni Mejia Notes Date Note Type Note Provider Name and Address Organization Details Recorded Time 09/20/2025 text/html 25-year-old female with severe anxiety and elevated blood pressures. We discussed her anxiety. We discussed her current treatment. We discussed treatment ideas. Patient would like a PRN anxiety med. We discussed the risks, benefits, and alternatives to benzodiazepines. She is prescribed Xanax. She understands I would do this on a very limited basis. We agreed to treat her blood pressure more effectively. She was given the Procardia. She is given precautions on hypotension. Spent over 20 minutes on her care in total. Shawn Bradley MD [address], [place], [address], [facility] 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 03/02/20 25 1 B Positive 164 CLOSED Fetus Data First Name Last Name Admitted to NICU Weight (g) Sex Living Outcome Pediatric Complications Fetus ID Race Codes Race Delivery Type Ziah false 4025.62 9 F true Full Term 40444 Vaginal Delivery Problems Problem Notes SDH form completed 5GI consult Tachycardia Holter monitor 72 order- pt sent back on 03-27-25 Cardiology referral faxed per Dr Martínez office calling pt 04/21 to schedule consult scheduled 05/11 11:15AM Problem Name Start Date End Date Resolution Snomed Code Not e Uncomplicated moderate persistent asthma 03/02/2025 925930940 albuterol prn Abnormal placenta affecting management of mother 05/04/2025 98887811 [facility]CI serial grow th us Iron deficiency anemia 05/25/2025 [id number] [facility] tx [place] 200mg x1 HGB 10.6 Nausea and vomiting 03/02/2025 21699890 Anxiety 03/02/2025 10188668 sertralin e started 03/02/25 changed to prozac 10 on Gestational diabetes mellitus 07/08/2025 58852998 checking bs QID - ruled in GDM Referral faxed to [facility] 07/07 Frequent headache 05/03/2025 [id number] [place] to [facility] 05/21, discharge 05/23 [facility] referral faxed 05/24 [facility] Neurology consult pending per KAJAL Pittman [facility]- Neuro M unable to see pt due to insurance 05/25[facility] 07/05/25 Level US & Consult (see [facility] consult zayas recommendations ) regimen prn Imitrex 50mg for acute migraine, vitamin B2 (Riboflavin) 400mg, Coenzyme q10 300mg and magnesium oxide 200 to 600mg daily. minimize use of Excedrin or Tylenol to no more than 2-3 times a week. 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/2025 4542622 32wk growth us Jun Calculation Initial Jun [...] Weight in lbs Pre/Post Dialysis Refused Weight 158.923568371972 BP Diastolic BP Location Tested BP Systolic [...] Weight in lbs Pre/Post Dialysis Refused Weight 158.104528280974 BP Diastolic BP Location Tested BP Systolic [...] Weight in lbs Pre/Post Dialysis Refused Weight 162.373997006909 BP Diastolic BP Location Tested BP Systolic BP Type 78 123 Fetus Heart Rate Present A 148 Fetus Movement A Yes Comments Patient is having having ronny n, cramping and vaginal discharge. 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 zofran, precautions and education [...] Type Weight in lbs Pre/Post Dialysis Refused 168.830475093961 BP Diastolic BP Location Tested BP Systolic [...] Type Weight in lbs Pre/Post Dialysis Refused 169.854590617516 BP Diastolic BP Location Tested BP Systolic [...] Weight in lbs Pre/Post Dialysis Refused Weight 175.270169192573 BP Diastolic BP Location Tested BP Systolic [...] Weight in lbs Pre/Post Dialysis Refused Weight 182.391149658947 BP Diastolic BP Location Tested BP Systolic [...] Weight in lbs Pre/Post Dialysis Refused Weight 181.918722905167 BP Diastolic BP Location Tested BP Systolic BP Type 73 L arm 131 sitting Fetus Heart Rate Present Fetus Movement A Yes Comments viral URI testied neg at urg ent care, nausea resolved, efw 68%, +FM plan education and precautions f/u 2 weeks diagnosed GDM, 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, gave list reviewed protein vs carb Flowsheet Date 07/21/2025 Gibson Score Blood Edema Fundus Height Fundus Units Glucose Ketones Leukocytes Nitrite Labor Signs Protein Cervic Dilation Cervic Effacement Cervic Station Type Weight in lbs Pre/Post Dialysis Refused Weight 181.689559812400 BP Diastolic BP Location Tested BP Systolic BP Type 78 L arm 127 sitting Fetus Heart Rate Present A 150 Fetus Movement A Yes Comments rpt urine culture +FM review ed blood sugars, meets with transmission design engineer today, precautions and education f/u 2 weeks [...] Weight in lbs Pre/Post Dialysis Refused Weight 181.158783049877 BP Diastolic BP Location Tested BP Systolic [...] Weight in lbs Pre/Post Dialysis Refused Weight 183.607623848076 BP Diastolic BP Location Tested BP Systolic [...] Type Weight in lbs Pre/Post Dialysis Refused 184.192686309418 BP Diastolic BP Location Tested BP Systolic [...] Type Weight in lbs Pre/Post Dialysis Refused 184.695046425156 BP Diastolic BP Location Tested BP Systolic [...] Type Weight in lbs Pre/Post Dialysis Refused 184.087051288746 BP Diastolic BP Location Tested BP Systolic [...] Weight in lbs Pre/Post Dialysis Refused Weight 184.013046152153 BP Diastolic BP Location Tested BP Systolic [...] Weight in lbs Pre/Post Dialysis Refused Weight 164.313233949241 BP Diastolic BP Location Tested BP Systolic [...]
--- OUTSIDE RECORDS SUMMARY | 2025-10-27 12:11 | XMS_ITS ---
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 NO TV Trich genital swab/urine PCR CEPHEID - Collect Date/Time: 11/06/2023 00:50 [facility] ID: [id number] [address] [place] [address], [phone] LOINC: 16497-3 Test Value Unit Reference Range Code Code System Flag TV TRICH SOURCE: GENITAL TV TRICH NOT DETECTED SEND TO IFC? NO COMPREHENSIVE METABOLIC PANE L - Collect Date/Time: 11/06/2023 00:29 [facility] ID: [id number] [address] [place] [address], [phone] LOINC: 77013-6 Test Value Unit Reference Range Code Code [...] 8-9 LOINC ANION GAP 12 L=10 H=20 41015-5 LOINC OSMOLALITY 280 mOs/kG L=280 H=296 87089-3 LOINC BUN/CREAT 18.0 3097-3 LOINC CALCIUM 8.9 mg/dL L=8.3 H=10.5 03785-5 LOINC AST 18 U/L L=15 H=46 1920-8 LOINC ALT 12 U/L L=9 H=72 1742-6 LOINC ALKALINE PHOS 56 U/L L=38 H=126 6768-6 LOINC TOTAL BILI 0.2 mg/dL L=0.2 H=1.3 1975-2 LOINC ALBUMIN 3.6 G/dL L=3.5 H=5.0 1751-7 LOINC TOTAL PROTEIN 6.8 g/L L=6.3 H=8.2 2885-2 LOINC A/G RATIO 1.1 43782-3 LOINC AGE 23 21861-7 LOINC eGFR NON-AFR 161 ml/min eGFR AFR AMER 195 ml/min BETA HCG-QUANT - Collect Neil e/Time: 11/06/2023 00:29 [facility] ID: [id number] [address] [place] [address], [phone] LOINC: 78990-0 Test Value Unit Reference Range Code Code System Flag BETA HCG-QUANT 43332.00 mIU/mL L=0.00 H=6.00 60368-3 LOINC H LIPASE - Collect Date/Time: 11/06/2023 00:29 [facility] ID: [id number] [place] [address], [phone] LOINC: 3040-3 Test Value Unit Reference Range Code Code System Flag LIPASE 76 U/L L=23 H=300 3040-3 LOINC CBC W/ DIFF - Collect Date/T randall: 11/06/2023 00:29 [facility] ID: [id number] [address] [place], [place], [phone] LOINC: 93463-8 Test Value Unit Reference Range Code Code System Flag WBC 11.2 10^3uL L=4.8 H=10.8 H RBC 3.51 10^6uL L=4.20 H=5.40 L HEMOGLOBIN 10.0 g/dL L=12.0 H=16.0 718-7 LOINC L HEMATOCRIT 30.5 VOL% L=37.0 H=47.0 4544-3 LOINC L MCV 86.9 fL L=81.0 H=99.0 MCH 28.5 pg L=27.0 H=32.0 MCHC 32.8 g/dL L=32.0 H=36.0 PLATELETS 330 10^3uL L=100 H=400 32897-2 LOINC RDW 12.4 % L=11.7 H=15.5 %GRAN 62.6 % L=40.0 H=70.0 42761-2 LOINC %LYMPH 26.0 % L=20.0 H=45.0 736-9 LOINC %MONO 8.1 % L=2.0 H=10.0 07588-4 LOINC %EOS 2.3 % L=0.0 H=6.0 713-8 LOINC %BASO 0.2 % L=0.0 H=3.0 706-2 LOINC #NEUT 7.0 10^3uL L=1.9 H=7.6 07508-0 LOINC #LYMPH 2.9 10^3uL L=0.9 H=4.9 62260-1 LOINC #MONO 0.9 10^3uL L=0.1 H=0.9 02609-6 LOINC #EOS 0.3 10^3uL L=0.0 H=0.6 712-0 LOINC #BASO 0.02 10^3uL L=0.00 H=0.10 01860-7 LOINC #IM GRANS 0.1 10^3uL L=0.0 H=7.0 70423-1 LOINC %IM GRANS 0.8 % L=0.0 H=5.0 28467-4 LOINC %NRB 0.0 L=0.0 H=0.2 28237-8 LOINC #NRB 0.000 L=0.000 H=0.012 17677-9 LOINC MANUAL DIFF NOT INDICATED RBC MORPH NOT INDICATED URINALYSIS w/Microscopy/C&S if indicated - Collect Date/Time: 11/06/2023 00:20 [facility] ID: [id number] [place], [place], [phone] LOINC: 16093-7 Test Value Unit Reference Range Code Code System Flag UR SOURCE UNKNOWN 80914-8 LOINC COLOR YELLOW YELLOW 5778-6 LOINC CLARITY SL CLOUDY CLEAR 48834-5 LOINC SPEC GRAVITY >=1.030 1.000-1.030 5811-5 LOINC A PH 6.0 5.0 - 6.5 5803-2 LOINC LEUK EST NEGATIVE NEGATIVE 5799-2 LOINC NITRATE NEGATIVE NEGATIVE PROTEIN NEGATIVE NEGATIVE 5804-0 LOINC GLUCOSE NEGATIVE NEGATIVE 90612-3 LOINC KETONES TRACE NEGATIVE 69019-5 LOINC A UROBILINOGEN 0.2 NEGATIVE 5818-0 LOINC BILIRUBIN NEGATIVE NEGATIVE 47117-0 LOINC BLOOD NEGATIVE NEGATIVE 28196-2 LOINC WBC 0-2 0 - 2 22784-1 LOINC RBC 0-2 0 - 2 87995-5 LOINC EPITHELIAL MODERATE RARE-FEW 34920-3 LOINC A BACTERIA FEW NONE SEEN 74459-3 LOINC MUCUS MODERATE NONE SEEN 8247-9 LOINC A YEAST NOT PRESENT NOT PRESENT 95343-6 LOINC CASTS NONE SEEN 50156-4 LOINC CRYSTALS NONE SEEN 60919-7 LOINC CULTURE? NO 8251-1 LOINC DIAGNOSIS ABN LAB RESU US GALLBLADDER - Completed: 11/06/2023 05:33 LOINC: EXAM DESCRIPTION: US GALLBLADDER REASON FOR STUDY: PT COMPLAINS OF INTERMITTENT EPIGASTRIC PAIN X 5 HOURS. STATES SHE VOMITTED BILE. 16 WKS , STATES SHE HAD NORMAL ULTRASOUND AT 9 WKS GESTATION AT [facility], LMP=07/21/23 EDC=04/16/24, Duration: X 5 HOURS TECHNIQUE: [...] Lucretia Issa M.D. TW: DARRYN Report ID: [id number] Reading Location: [id number] US OB LIMITED - Completed: 0 11/06/2023 05:30 LOINC: EXAM DESCRIPTION: US OB LIMITED REASON FOR STUDY: PT COMPLAINS OF INTERMITTENT EPIGASTRIC PAIN X 5 HOURS. STATES SHE VOMITTED BILE. 16 WKS , STATES SHE HAD NORMAL ULTRASOUND AT 9 WKS GESTATION AT [facility], LMP=07/21/23 EDC=04/16/24, Duration: X 5 HOURS [...] Lucretia Issa M.D. TW: DARRYN Report ID: [id number] Reading Location: [id number] Social History Type Status Start Date End Date Code Code Syst em Smoking History Never smoker (Never Smoked) 735674709 SNOMED CT Sex Female Assessment You had [...] 6002 SNOMED-CT UNSPECIFIED ABDOMINAL PAIN active 215 64736 SNOMED-CT Allergies and Adverse Reactions Allergy Substance Reaction Severity Start Date Concern Status Co de Code System AMOXICILLIN Active 723 RxNorm TERBUTALINE Active 56628 RxNorm Plan of Treatment Stress Test Treadmill 01/21/2025 Manager Respiratory Care Consult 04/27/2025 Encounters Encounter Diagnosis Start Date Code Code Sys tem Diseases of the digestive sy stem complicating , second trimester 11/05/2023 SNOMED-CT Personal Care Team Section Performer Name Performer Role Active Date Inactive Da KRAIG Castellon PCP - Primary care physician 2021-10 0-24 2024-09-12 KRAIG ESTRADA PCP - Primary care physician 2023-11-062024-09-12 KRAIG ESTRADA PCP - Primary care physician 2023-11-062024-09-12 KRAIG ESTRADA PCP - Primary care physician 2023-0 -16 2024-09-12 Hong Abdi PCP - Primary care physician 2024-09-12 Imaging Narrative Notes
--- OUTSIDE RECORDS SUMMARY | 2025-10-27 12:11 | XMS_ITS | Continuity of Care Document ---
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 Name Role Phone CARLOS ESTRADA Primary Care [...] Available [facility] [address], [place], [address], 03/06/2025 03:58:26 03/06/20 25 03/06/2025 [UNIT Y] ANEUP LOIDY NIPT sex chromosome aneuploidy NOT DETECT ED normal Not Available [facility] [address], [place], [address], 03/06/2025 03:58:26 03/06/20 25 03/06/2025 [UNIT Y] ANEUP LOIDY NIPT monosomy X LOW RISK <1 in 10,000 normal Not Available [facility] [address], [place], [address], 03/06/2025 03:58:26 03/06/20 25 03/06/2025 [UNIT Y] ANEUP LOIDY NIPT trisomy 13 LOW RISK <1 in 10,000 normal Not Available [facility] [address], [place], [address], 03/06/2025 03:58:26 03/06/20 25 03/06/2025 [UNIT Y] ANEUP LOIDY NIPT trisomy 18 LOW RISK <1 in 10,000 normal Not Available [facility] [address], [place], [address], 03/06/2025 03:58:26 03/06/20 25 03/06/2025 [UNIT Y] ANEUP LOIDY NIPT trisomy 21 LOW RISK <1 in 10,000 normal Not Available [facility] [address], [place], [address], 03/06/2025 03:58:26 03/06/20 25 03/06/2025 [UNIT Y] ANEUP LOIDY NIPT sex FEMALE normal Not Available [facility] [address], [place], [address], 03/06/2025 03:58:26 03/06/20 25 03/06/2025 [UNIT Y] ANEUP LOIDY NIPT gestation SINGLE TON normal Not Available [facility] [address], [place], [address], 03/06/2025 03:58:26 03/06/20 25 03/06/2025 [UNIT Y] ANEUP LOIDY NIPT for detailed report, see pdf See PDF normal Not Available [facility] [address], [place], [address], 03/06/2025 03:58:26 03/02/20 25 03/02/2025 CULTU RE: URINE result report SEE RESULT S BELOW Test: Cultu re: Urine Speci men Sourc e: Urine - Clean Catch Speci men Type: Urine Speci men Date: 025 1455 Resul t Date: 025 2138 Resul t Statu s: Final resul t Abnor mal: No Resul ting Lab: [facility] [address] [facility] [address] Tel: CULTU RE ----- ----- ----- --- No growt h in 1 day (dete ction level of 10,00 0 colon ies / ml.) Not Available [facility] (Lab) [address] [facility], [place], [address], 03/03/2025 22:42:27 03/12/2003/12/2025 CULTU RE: URINE result report SEE RESULT S BELOW Test: Cultu re: Urine Speci men Sourc e: Urine - Clean Catch Speci men Type: Urine Speci men Date: 2024 1600 Resul t Date: 2024 0610 Resul t Statu s: Final resul t Abnor mal: No Resul ting Lab: [facility] [address] [facility] [address] Tel: CULTU RE ----- ----- ----- --- No growt h in 1 day (dete ction level of 10,00 0 colon ies / ml.) Not Available [facility] (Lab) [address], [place], [address], 03/14/2025 07:15:03 03/12/2003/12/2025 urina lysis , dipst ick Leukocytes ++ Not Available [facility] [address], [place], [address], 03/12/2025 16:45:06 03/12/20 25 03/12/2025 urina lysis , dipst ick Protein + Not Available [place] [address], [place], [address], 03/12/2025 16:45:06 03/12/20 03/12/2025 urina lysis , dipst ick pH 5 Not Available [place] [address], [place], [address], 03/12/2025 16:45:06 03/12/20 25 03/12/2025 urina lysis , dipst ick Blood trace Not Available [place] [address], [place], [address], 03/12/2025 16:45:06 03/12/20 25 03/12/2025 urina lysis , dipst ick Specific Marquette 1.015 Not Available [facility] [address], [place], [address], 03/12/2025 16:45:06 03/12/20 25 03/12/2025 urina lysis , dipst ick Ketone +++ Not Available [place] [address], [place], [address], 03/12/2025 16:45:06 03/31/20 25 03/31/2025 TSH, REFLE X FREE T4 TSH 0.42 uIU/m L 0.30-5 .33 Not Available [facility] (Lab) [address] [facility], [place], [address], 04/01/2025 03:05:12 03/31/20 25 03/31/2025 CULTU RE: URINE result report SEE RESULT S BELOW Test: Cultu re: Urine Speci men Sourc e: Urine Voide d Speci men Type: Urine Speci men Date: 1710 Resul t Date: 6 Resul t Statu s: Final resul t Abnor mal: No Resul ting Lab: [facility] [address] [facility] [address] Tel: CULTU RE ----- ----- ----- --- Cultu re resul t (>=3 organ isms prese nt) indic ates possi ble conta minat ion. Repea t cultu re if sympt oms indic ate. Not Available [facility] (Lab) [address], [place], [address], 04/01/2025 23:59:19 03/31/20 25 03/31/2025 urina lysis , dipst ick Leukocytes +1 Not Available [facility] [address], [place], [address], 03/31/2025 09:23:13 03/31/20 25 03/31/2025 urina lysis , dipst ick Nitrite normal Not Available [place] [address], [place], [address], 03/31/2025 09:23:13 03/31/20 25 03/31/2025 urina lysis , dipst ick Urobilinogen normal Not Available [facility] david [address], [place], [address], 03/31/2025 09:23:13 03/31/20 25 03/31/2025 urina lysis , dipst ick Protein trace Not Available [place] [address], [place], [address], 03/31/2025 09:23:13 03/31/20 25 03/31/2025 urina lysis , dipst ick pH 5 Not Available [place] [address], [place], [address], 03/31/2025 09:23:13 03/31/20 25 03/31/2025 urina lysis , dipst ick Specific [place] 1.020 Not Available [facility] [address], [place], [address], 03/31/2025 09:23:13 03/31/20 25 03/31/2025 urina lysis , dipst ick Ketone normal Not Available [place] [address], [place], [address], 03/31/2025 09:23:13 03/31/20 25 03/31/2025 urina lysis , dipst ick Bilirubin normal Not Available [facility] anna [address], [place], [address], 03/31/2025 09:23:13 03/31/20 25 03/31/2025 urina lysis , dipst ick Glucose normal Not Available [place] [address], [place], [address], 03/31/2025 09:23:13 03/31/20 25 03/31/2025 urina lysis , dipst ick Appearance normal Not Available [facility] [address], [place], [address], 03/31/2025 09:23:13 03/31/20 25 03/31/2025 urina lysis , dipst ick Color normal Not Available [place] [address], [place], [address], 03/31/2025 09:23:13 04/01/20 25 04/01/2025 WOMEN 'S HEALT H SWAB PLUS, DENIS bacterial vaginosis (bv), tma Negati ve negati ve Not Available [facility] (Lab) [address] [place], [address], 04/02/2025 14:08:45 04/01/20 25 04/01/2025 WOMEN 'S HEALT H SWAB PLUS, DENIS mekhi species, tma Negati ve negati ve Not Available [facility] (Lab) [address] [place], [address], 04/02/2025 14:08:45 04/01/20 25 04/01/2025 WOMEN 'S HEALT H SWAB PLUS, DENIS mekhi glabrata, tma Negati ve negati ve Not Available [facility] (Lab) [address] [place], [address], 04/02/2025 14:08:45 04/01/2004/01/2025 WOMEN 'S HEALT H SWAB PLUS, DENIS trichomonas vaginalis, tma Negati ve negati ve Not Available [facility] (Lab) [address] [facility], [place], [address], 04/02/2025 14:08:45 04/01/2004/01/2025 [facility] DENIS chlamydia trachomatis, PCR Negati ve negati ve Not Available [facility] (Lab) [address] [place], [address], 04/02/2025 14:08:45 04/01/2004/01/2025 WOMEN 'S HEALT H [...] ded in this panel . Not Available [facility] (Lab) [address] [facility], [place], [address], 04/02/2025 14:08:45 04/22/2004/22/2025 CULTU RE: URINE result report SEE RESULT S BELOW Test: Cultu re: Urine Speci men Sourc e: Urine Voide d Speci men Type: Urine Speci men Date: 2024 1314 Resul t Date: 2024 0322 Resul t Statu s: Final resul t Abnor mal: No Resul ting Lab: [facility] [address] [facility] [address] Tel: CULTU RE ----- ----- ----- --- No growt h in 1 day (dete ction level of 10,00 0 colon ies / ml.) Not Available [facility] (Lab) [address] [facility], [place], [address], 04/24/2025 04:28:01 04/22/20 25 04/22/2025 urina lysis , dipst ick Leukocytes + Not Available [facility] [address], [place], [address], 04/22/2025 10:01:51 04/22/20 25 04/22/2025 urina lysis , dipst ick Protein + Not Available [place] [address], [place], [address], 04/22/2025 10:01:51 04/22/20 25 04/22/2025 urina lysis , dipst ick pH 8 Not Available [place] [address], [place], [address], 04/22/2025 10:01:51 04/22/20 25 04/22/2025 urina lysis , dipst ick Blood + Not Available [place] [address], [place], [address], 04/22/2025 10:01:51 04/22/20 25 04/22/2025 urina lysis , dipst ick Specific [place] 1.010 Not Available [facility] [address], [place], [address], 04/22/2025 10:01:51 04/22/2004/22/2025 urina lysis , dipst ick Ketone + Not Available [place] [address], [place], [address], 04/22/2025 10:01:51 06/23/2006/23/2025 HEMAT OCRIT (HCT) HCT 35.6 % (based on docume nted legal sex) 34.0-4 5.0 Not Available [facility] (Lab) [address] [facility], [place], [address], 06/24/2025 11:45:32 06/23/20 25 06/23/2025 HEMOG LOBIN (HGB) HGB 11.1 g/dL (based on docume nted legal sex) 11.6-1 5.4 low Not Available [facility] (Lab) [address] [facility], [place], [address], 06/24/2025 11:45:32 06/23/20 25 06/23/2025 GTT - GESTA ROLAND L JOSE N, ACOG OB glucose, 1 hour screen 180 mg/dL 70-135 high Not Available [facility] (Lab) [address] [place], [address], 06/24/2025 11:45:33 06/23/20 25 06/23/2025 HIV 1/2 ANTIG EN/AN TIBOD Y, REFLE X CONFI RMATI ON HIV antigen/anti body Nonrea ctive nonrea ctive HIV-1 antig en and HIV-1 /HIV- 2 antib odies were not detec greg. No labor atory evide nce of HIV infec tion. Not Available [facility] (Lab) [address], [place], [address], 06/24/2025 11:45:33 08/06/23/2025 RPR SCREE N, REFLE X TITER /CONF IRMAT ION RPR qualitative Nonrea ctive nonrea ctive Not Available [facility] (Lab) [address] [facility], [place], [address], 06/24/2025 11:45:34 07/21/2007/21/2025 CULTU RE: URINE result report SEE RESULT S BELOW Test: Cultu re: Urine Speci men Sourc e: Urine - Clean Catch Speci men Type: Urine Speci men Date: 2024 1024 Resul t Date: 2024 0252 Resul t Statu s: Final resul t Abnor mal: No Resul ting Lab: [facility] [address] [facility] [address] Tel: CULTU RE ----- ----- ----- --- No growt h in 1 day (dete ction level of 10,00 0 colon ies / ml.) Not Available [facility] (Lab) [address] [facility], [place], [address], 07/23/2025 03:57:01 07/21/2007/21/2025 urina lysis , dipst ick Leukocytes ++ Not Available [address], [place], [address], 07/21/2025 11:03:04 07/21/20 25 07/21/2025 urina lysis , dipst ick Nitrite neg Not Available [place] [address], [place], [address], 07/21/2025 11:03:04 07/21/20 25 07/21/2025 urina lysis , dipst ick Urobilinogen neg Not Available [facility] [address], [place], [address], 07/21/2025 11:03:04 07/21/20 25 07/21/2025 urina lysis , dipst ick Protein + Not Available [place] [address], [place], [address], 07/21/2025 11:03:04 07/21/20 25 07/21/2025 urina lysis , dipst ick pH 5 Not Available [place] [address], [place], [address], 07/21/2025 11:03:04 07/21/20 25 07/21/2025 urina lysis , dipst ick Specific [place] 1.030 Not Available [facility] [address], [place], [address], 07/21/2025 11:03:04 07/21/20 25 07/21/2025 urina lysis , dipst ick Ketone +++ Not Available [place] [address], [place], [address], 07/21/2025 11:03:04 07/21/20 25 07/21/2025 urina lysis , dipst ick Bilirubin neg Not Available Ja[facility] cast[facility] [address], [place], [address], 07/21/2025 11:03:04 07/21/20 25 07/21/2025 urina lysis , dipst ick Glucose neg Not Available [place] [address], [place], [address], 07/21/2025 11:03:04 07/21/20 25 07/21/2025 urina lysis , dipst ick Appearance cloudy Not Available [address], [place], [address], 07/21/2025 11:03:04 07/21/20 25 07/21/2025 urina lysis , dipst ick Color dark Not Available [place] [address], [place], [address], 07/21/2025 11:03:04 08/04/2008/04/2025 CMP(C OMPRE HENSI VE METAB OLIC PANEL ) sodium 138 mmol/ L 133-14 6 Not Available [facility] (Lab) [address] [facility], [place], [address], 08/05/2025 13:39:18 08/04/20 25 08/04/2025 CMP(C OMPRE HENSI VE METAB OLIC PANEL ) potassium 4.0 mmol/ L 3.5-5. 1 Not Available [facility] (Lab) [address] [facility], [place], [address], 08/05/2025 13:39:18 08/04/20 25 08/04/2025 CMP(C OMPRE HENSI VE METAB OLIC PANEL ) chloride 105 mmol/ L 98-107 Not Available [facility] (Lab) [address] [facility], [place], [address], 08/05/2025 13:39:18 08/04/20 25 08/04/2025 CMP(C OMPRE HENSI VE METAB OLIC PANEL ) carbon dioxide 25 mmol/ L 21-31 Not Available [facility] (Lab) [address] [facility], [place], [address], 08/05/2025 13:39:18 08/04/20 25 08/04/2025 CMP(C OMPRE HENSI VE METAB OLIC PANEL ) anion gap 8 mmol/ L 4-13 Not Available [facility] (Lab) [address] [place], [address], 08/05/2025 13:39:18 08/04/20 25 08/04/2025 CMP(C OMPRE HENSI VE METAB OLIC PANEL ) blood urea nitrogen 10 mg/dL 7-25 Not Available [facility] (Lab) [address] [facility], [place], [address], 08/05/2025 13:39:18 08/04/20 25 08/04/2025 CMP(C OMPRE HENSI VE METAB OLIC PANEL ) creatinine 0.41 mg/dL 0.60-1 .30 low Not Available [facility] (Lab) [address] [facility], [place], [address], 08/05/2025 13:39:18 08/04/20 25 08/04/2025 CMP(C OMPRE HENSI VE METAB OLIC PANEL ) egfrcr (CKD-epi 2020) >90 mL/mi n/1.7 3_m2 >=60 Not Available [facility] (Lab) [address] [facility], [place], [address], 08/05/2025 13:39:18 08/04/20 25 08/04/2025 CMP(C OMPRE HENSI VE METAB OLIC PANEL ) calcium 8.9 mg/dL 8.3-10 .5 Not Available [facility] (Lab) [address] [facility], [place], [address], 08/05/2025 13:39:18 08/04/20 25 08/04/2025 CMP(C OMPRE HENSI VE METAB OLIC PANEL ) glucose 116 mg/dL 70-100 high Not Available [facility] (Lab) [address] [facility], [place], [address], 08/05/2025 13:39:18 08/04/20 25 08/04/2025 CMP(C OMPRE HENSI VE METAB OLIC PANEL ) protein, total 6.1 g/dL 6.4-8. 3 low Not Available [facility] (Lab) [address] [facility], [place], [address], 08/05/2025 13:39:18 08/04/20 25 08/04/2025 CMP(C OMPRE HENSI VE METAB OLIC PANEL ) albumin 3.5 g/dL 3.5-5. 0 Not Available [facility] (Lab) [address] [facility], [place], [address], 08/05/2025 13:39:18 08/04/20 25 08/04/2025 CMP(C OMPRE HENSI VE METAB OLIC PANEL ) ALT 11 units /L 9-43 Not Available [facility] (Lab) [address] [facility], [place], [address], 08/05/2025 13:39:18 08/04/20 25 08/04/2025 CMP(C OMPRE HENSI VE METAB OLIC PANEL ) alkaline phosphatase 98 units /L 34-104 Not Available [facility] (Lab) [address] [facility], [place], [address], 08/05/2025 13:39:18 08/04/20 25 08/04/2025 CMP(C OMPRE HENSI VE METAB OLIC PANEL ) AST 15 units /L 13-39 Not Available [facility] (Lab) [address] [facility], [place], [address], 08/05/2025 13:39:18 08/04/20 25 08/04/2025 CMP(C OMPRE HENSI VE METAB OLIC PANEL ) bilirubin, total 0.3 mg/dL 0.2-1. 2 Not Available [facility] (Lab) [address] [facility], [place], [address], 08/05/2025 13:39:18 08/04/20 25 08/04/2025 BILE ACIDS , TOTAL bile acids, total 4 umol/ L 0-10 Test Perfo rmed by: Luke hernández rn [facility] [address] [address] Not Available [facility] (Lab) [address] [facility], [place], [address], 08/05/2025 13:39:19 03/02/20 25 03/02/2025 US, obste tric, nucha l trans lucen cy No observ ation record ed. [email or web address] [place] [address], [place], [address], 03/02/2025 13:35:30 03/02/20 25 03/02/2025 US, obste tric, nucha l trans lucen cy No observ ation record ed. [email or web address] [address], [place], [address], 03/03/2025 14:08:39 03/08/20 25 03/08/2025 US, obste tric, 1st trime ster No observ ation record ed. [email or web address] [place] [address], [place], [address], 03/08/2025 12:22:22 03/08/20 25 03/08/2025 US, obste tric, 1st trime ster No observ ation record ed. [email or web address] [address], [place], [address], 03/10/2025 15:03:13 04/01/20 25 03/24/2025 qamar r monit or No observ ation record ed. [address] [facility], [place], [address], 04/08/2025 12:36:45 04/01/20 25 03/22/2025 qamar r monit or No observ ation record ed. [address] (Pulmonary) [address] [place] [address] [address] [facility], [place], [address], 04/06/2025 08:59:34 04/20/20 25 04/20/2025 US, obste tric, limit ed No observ ation record ed. [email or web address] [place] [address], [place], [address], 04/20/2025 17:39:30 04/20/20 25 04/20/2025 US, obste tric, follo w-up No observ ation record ed. [email or web address] [address], [place], [address], 04/23/2025 08:32:54 04/28/20 25 04/28/2025 US, obste tric, 2nd or 3rd trime ster No observ ation record ed. [email or web address] [place] [address], [place], [address], 04/28/2025 17:48:42 04/28/20 25 04/28/2025 US, obste tric, 2nd or 3rd trime ster No observ ation record ed. [email or web address] [address], [place], [address], 05/04/2025 22:16:11 05/07/20 25 05/07/2025 non-s tress test No observ ation record ed. [address], [place], [address], 05/28/2025 13:33:54 05/21/20 25 05/21/2025 CT, head + brain , w/o contr ast No observ ation record ed. [address], [place], [address], 05/24/2025 13:48:57 05/28/20 25 05/28/2025 US, obste tric, follo w-up No observ ation record ed. [email or web address] [address], [place], [address], 05/28/2025 17:32:34 05/28/20 25 05/28/2025 US, obste tric, follo w-up No observ ation record ed. Esha [address], [place], [address], 06/01/2025 15:13:13 06/08/20 25 06/07/2025 US, obste tric, follo w-up No observ ation record ed. [email or web address] [facility] [address] , [place], [address], 06/15/2025 10:53:46 07/07/2007/07/2025 US, obste tric, follo w-up No observ ation record ed. [email or web address] [place] [address], [place], [address], 07/07/2025 13:18:01 07/07/20 25 07/07/2025 US, obste tric, follo w-up No observ ation record ed. [email or web address] [address], [place], [address], 07/07/2025 11:29:37 08/04/2008/04/2025 US, obste tric, follo w-up No observ ation record ed. [email or web address] [place] [address], [place], [address], 08/04/2025 15:08:50 08/04/20 25 08/04/2025 US, obste tric, follo w-up No observ ation record ed. [email or web address] [address], [place], [address], 08/06/2025 10:41:50 08/11/2008/11/2025 non-s tress test No observ ation record ed. [place] [address], [place], [address], 08/11/2025 17:37:52 08/11/20 non-s tress test No observ ation record ed. [email or web address] [place] [address], [place], [address], 08/11/2025 17:38:11 08/15/20 25 08/15/2025 non-s tress test No observ ation record ed. [address], [place], [address], 08/21/2025 10:18:57 08/15/2008/15/2025 US, obste tric, bioph ysica l profi le No observ ation record ed. [facility] [address], [place], [address], 08/17/2025 10:50:53 08/18/2008/18/2025 US, obste tric, bioph ysica l profi le + non-s tress test No observ ation record ed. [email or web address] [place] [address], [place], [address], 08/18/2025 10:21:39 08/18/2008/18/2025 US, obste tric, bioph ysica l profi le + non-s tress test No observ ation record ed. [email or web address] [address], [place], [address], 08/18/2025 10:35:44 08/18/2008/18/2025 non-s tress test No observ ation record ed. [email or web address] [place] [address], [place], [address], 08/18/2025 17:34:03 08/18/20 non-s tress test No observ ation record ed. [email or web address] [place] [address], [place], [address], 08/18/2025 16:06:09 08/25/2008/25/2025 US, obste tric, bioph ysica l profi le + non-s tress test No observ ation record ed. [email or web address] [place] [address], [place], [address], 08/25/2025 18:52:06 08/25/2008/25/2025 US, obste tric, follo w-up No observ ation record ed. [email or web address] [address], [place], [address], 08/25/2025 15:47:28 08/25/20 25 08/25/2025 non-s tress test No observ ation record ed. [email or web address] [place] [address], [place], [address], 08/25/2025 18:12:15 08/25/20 non-s tress test No observ ation record ed. [email or web address] [place] [address], [place], [address], 08/25/2025 17:21:19 08/30/20 25 08/30/2025 non-s tress test No observ ation record ed. [email or web address] [address], [place], [address], 09/15/2025 15:26:49 09/01/20 25 09/01/2025 non-s tress test No observ ation record ed. [email or web address] Ville [id number] [facility] [address], [place], [address], 09/13/2025 11:32:22 09/01/20 25 09/01/2025 US, obste tric No observ ation record ed. [place] [id number] [facility] [address], [place], [address], 09/02/2025 15:56:01 09/01/20 25 09/01/2025 non-s tress test No observ ation record ed. [email or web address], [place], [address], 09/02/2025 14:32:38 09/16/20 25 09/16/2025 CT, angio gram, head + neck, w/ contr ast No observ ation record ed. [email or web address] Ville [id number] [facility] [address], [place], [address], 09/16/2025 20:01:05 09/28/20 25 09/28/2025 non-s tress test No observ ation record ed. [address] [facility] [address], [place], [address], 10/04/2025 16:42:40 Result Notes None recorded. Problems Name Problem SNOMED Code Status Onset Date Resolution Date Notes Provider Name and Address Organization Details Recorded Time Hypereme sis [id number] Completed phenerga n now prn Asia Baileyashutosh ramos [facility] 2 16:43:51 Anxiety in pregnanc y [id number] Completed will continue to monitor Asia Baileyashutosh ramos [facility] 2 16:43:51 Past pregnanc y history of gestatio nal diabetes mellitus [id number] Completed Early 1 hr GTT @ 20wks 11/03 APPT Asia Luis ramos [facility] 2 16:43:51 Spinal muscular atrophy [id number] Completed Carrier - Not in contact with FOB. Asia Luis ramos [facility] 2 16:43:51 Anxiety 13798587 Completed prozac Karina ramos [facility] 4 11:00:46 Nausea [id number] Completed d/c zofran pump 11/08 per pt request Karina ramos [facility] 4 11:00:46 Postpart um [email or web address] [email or web address] [id number] Completed 2017 with d&c Karina ramos [facility] 4 11:00:46 Normal pregnanc y in multigra jessy [id number] 64511 Completed 201907/05/2021 Encounte r for supervis ion of other normal pregnanc y, 3rd trimeste r;Record ed Elsewher e: No Locat ion: Griceldaeda anna [facility] S ource: EHR Informatics Nurse yvrose: N Practi ce ID: 0001 Gigi lable Time: 10:45:00 AM Karina ramos [facility] 10:15:27 Gestatio n period, 37 weeks 16999595 Completed 201907/05/2021 37 weeks gestatio n of pregnanc y;Record ed Elsewher e: No Locat ion: [facility] S ource: EHR Informatics Nurse yvrose: N Practi ce ID: 0001 Gigi lable Time: 09:00:00 AM Karina Burroughs [facility] 10:15:[address] Concept Completed 201907/05/2021 Matern care for abnlt fetl hrt rate or rhym, 3rd tri, unsp;Rec orded Elsewher e: No Locat ion: [facility] S ource: EHR Informatics Nurse yvrose: N Practi ce ID: 0001 Gigi lable Time: 08:45:00 AM Karina ramos [facility] 10:15:29 Gestatio nal diabetes mellitus 33899828 Completed 201907/05/2021 Gestatio nal diabetes mellitus in pregnanc y, diet controll ed;Recor ded Elsewher e: No [facility] EHR Informatics Nurse yvrose: N Practi ce ID: 0001 Gigi lable Time: 11:45:00 AM Karina ramos [facility] 10:15:25 Gestatio n period, 38 weeks 17426674 Completed 201907/05/2021 38 weeks gestatio n of pregnanc y;Record ed Elsewher e: No Locat ion: [facility] S ource: EHR Informatics Nurse yvrose: N Practi ce ID: 0001 Gigi lable Time: 11:30:00 AM Karina ramos [facility] 10:15:13 Amenorrh ea 04049238 Completed 202007/10/2021 Tammi Jones null, [facility] 13:08:35 Pregnanc y 26975372 Completed 202003/29/2022 Emma Dykes null, [facility] 5 12:28:48 Pregnanc y 27970866 Completed 202304/22/2024 Emma Dykes null, [facility] 12:28:48 Headache 15607135 Active 2023 Karina Burroughs null, [facility] 16:19:28 Pregnanc y 06035202 Completed 202309/14/2025 Emma Dykes null, [facility] 12:28:48 Uncompli cated moderate persiste nt asthma 313761117 Completed 2024 albutero l prn Shawn Bradley MD [address], [place], [address], [facility] 13:08:36 Anxiety 13900628 Completed 2024 sertrali ne started 03/02/25 changed to prozac 10 on Shawn Bradley MD [address], [place], [address], [facility] 5 17:05:48 Nausea and vomiting 76746038 Completed 2024 Shawn Bradley MD [address], [place], [address], [facility] 13:20:27 Placenta circumva llata 2476692 Completed 2024 32wk [facility] 09:44:35 Frequent headache 165307321 Completed 2024 transpor t to [facility] 05/21, discharg e 05/23 MFM referral faxed 05/24 [facility] [...] than 2-3 times a week. Ryann ramos [facility] 5 10:55:26 Abnormal placenta affectin g manageme nt of mother 68956687 Completed 2024 [facility] 10:46:25 Iron deficien cy anemia 49792206 Completed 2024 SS MFM tx venofer 200mg x1 HGB 10.6 [facility] 15:21:25 Gestatio nal diabetes mellitus 60982115 Completed 2024 checking bs QID - ruled in GDM [facility]erral [facility] 14:36:52 Notes:[facility] for P[facility] line, and home health already caring for pt. Vladimir RDZ at [phone] Problem Notes None recorded. Procedures Surgical History Date Name Laterality Status Provider Name and Address Organization Details Recorded Time 025 SALPINGECTOMY, LAPAROSCOPIC (SURG) completed Not Available [facility] 09/06/2025 11:19:17 025 Date of Last Pap Smear completed Karina Burroughs [facility] 01/28/2025 11:19:42 024 Nexplanon Removal completed Shawn Bradley MD [address], [place], [address], [facility] 08/05/2024 15:09:58 024 Control Implant Insertion completed Anju Mcnamara CNM [address], [place], [address], [facility] 05/08/2024 17:59:34 024 cholecystectomy completed Karina Burroughs [facility] 03/31/2025 09:18:57 018 Dilation and Curettage completed Karinasofia Burroughs [facility] 07/05/2021 10:17:50 Imaging Results None recorded. Procedure Notes None recorded. Medical Equipment None Reported. Allergies Allergen ID Allergen Name Allergen Category Reaction Reaction Severity Criticality Documentation Date Start Date Code Code System Note Provider Name and Address Organization Details Recorded Time 91600 terbutali ne medicatio n anaphylax is Not available Not available 01/27/20252021 98998 RxNorm Karina Burroughs [facility] 16:19:27 23929 amoxicill in medicatio n Not available Not available Not available 09/10/2025 723 RxNorm Not Available gene - External Data Service - prod 16:39:37 20859 terbinafi ne medicatio n anaphylax is Not available [facility] 09/10/20252024 40191 RxNorm Not Available gene - External Data [...] Prescrib ed Elsewher e: Yes Loca tion: [facility] odify By: prabhjot Lee r [...] n (supplie d by office) insert lot [id number] Exp 01/2026 Not Available Not Available Not Available 28 mg iron-800 mcg tablet 07/05 completed Prescrib ed Elsewher e: Yes Loca tion: [facility] odify By: prabhjot Lee r DateTime : 01/14/20 10:45:00 AM Not Available Not Available Not Available lidocaine 5 % topical ointment APPLY OINTMENT EXTERNAL LY TO RIBS THREE TIMES DAILY NEEDED 01/14 completed Not Available Not Available Not Available [employer] A 28 mg iron-1 mg-200 mg [...] and Address Organization Details Last Updated DateTime 09/29/2025 162.56 cm 27.5 kg/m2 09587.78 g 131/89 mm[Hg] Melyssa Santo [facility] 09/29/2025 14:33:38 Social History Question Answer Notes LastModified by Organizat ion Details LastModified Time Tobacco Smoking Status Former Smoker Karina ramos, [facility] 07/05/2021 09:06:21 If You Are , What Was Your Level Of Alcohol Consumption Prior To ? Occasional [email or web address] Information not available 03/31/2025 Are You Blind Or Do You Have Difficulty Seeing? No [email or web address] Information not available 07/05/2021 What Is Your Level Of Caffeine Consumption? Heavy [email or web address] Information not available 07/05/2021 In The 14 Days Before Symptom Onset, Have You Had Close Contact With A Laboratory-[facility]-19 While That Case Was Ill? No [email or web address] Information not available 07/05/2021 In The 14 Days Before Symptom Onset, Have You Had Close Contact With A Person Who Is Under Investigation For COVID-19 While That Person Was Ill? No [email or web address] Information not available 07/05/2021 Have You Been To An Area Known To Be High Risk For COVID-19? No [email or web address] Information not available 07/05/2021 Are You Deaf Or Do You Have Serious Difficulty Hearing? No Information not available 07/05/2021 What Type Of Diet Are You Following? REGULAR [email or web address] Information not available 07/05/2021 Which Illicit Or Recreational Drugs Have You Used? Marijuana [email or web address] Information not available 07/05/2021 Have You Ever Been Counseled For Unhealthy Alcohol Use? No [email or web address] Information not available 07/05/2021 Do You Use Your Seat Belt Or Car Seat Routinely? Yes [email or web address] Information not available 07/05/2021 Do You Have Smoke And Carbon Monoxide Detectors In Your Home? Yes [email or web address] Information not available 07/05/2021 Do You Use Sunscreen Routinely? Yes [email or web address] Information not available 07/05/2021 Has Tobacco Cessation Counseling Been Provided? No [email or web address] Information not available 07/05/2021 Have You Used IV Drugs? No [email or web address] Information not available 07/05/2021 Do You Have Difficulty Walking Or Climbing Stairs? No [email or web address] Information not available 12/06/2021 Sex: Unknown Functional Status Question Answer Note LastModified by Organat ion Details LastModified Time Do you use any illicit or recreational drugs? Yes [email or web address] Information not available 07/05/2021 Do you or have you ever used any other forms of tobacco or nicotine? Yes [email or web address] Information not available 07/05/2021 What is your level of alcohol consumption? None [email or web address] Information not available 03/31/2025 Do you or have you ever used smokeless tobacco? Never used smokeless tobacco [email or web address] Information not available 07/05/2021 Are you able to walk independently without assistance or assistive devices? YESWOREST [email or web address] Information not available 07/05/2021 Are you able to care for yourself independently? Yes [email or web address] Information not available 12/06/2021 Do you have difficulty dressing, bathing, grooming, or toileting? No [email or web address] Information not available 12/06/2021 Do you or have you ever used e-cigarettes or vape? Current user of electronic cigarettes [email or web address] Information not available 07/05/2021 What is your exercise level? Occasional Information not available 07/05/2021 Mental Status Question Answer Note LastModified by Organization D etails LastModified Time Do you feel stressed (tense, restless, nervous, or anxious, or unable to sleep at night)? [id number] Information not available 07/05/2021 Family History Relationship Description Onset Age of this Age Resolved Age Notes LastModified by Organization Details LastModified Time Father No current problems or disability [email or web address] Not available 05/2021 09:06:31 Mother No current [...] ICD10 Code Diagnosis IMO Codes Diagnosis Note [id number] Shawn Bradley MD [place] [address],[place] [address] 09/13/2025 15:30:32 09/13/2025 20:43:16 [id number] Shawn Bradley MD [place] [address],[place] [address] 09/14/2025 12:04:57 09/15/2025 08:16:47 Anxiety 07057650 F41.9 09467 this patient presents for severe anxiety. She [...] was given precaution s and instructio ns. [id number] Shawn Bradley MD [place] [place] [address],[place] [address] 09/20/2025 14:55:10 09/20/2025 15:43:32 Hypertension AND/OR vomiting complicating childbirth AND/OR puerperium 699276302 O13.9 23847192 Anxiety 76190051 F41.9 14411 25-year-ol d female with severe anxiety and elevated blood pressures. We discussed her anxiety. We discussed her current treatment. We discussed treatment ideas. Patient would like a PRN anxiety med. We discussed the risks, benefits, and alternativ es to benzoanastasia whitley. She is prescribed Xanax. She understand s I would do this on a very limited basis. We agreed to treat her blood pressure more effectivel y. She was given the Procardia. She is given precaution s on hypotensio n. Spent over 20 minutes on her care in total. [id number] Shawn Bradley MD [place] [place] [address],[place] [address] 09/29/2025 13:51:09 09/29/2025 14:54:36 care status 696857519 Z39.2 73840 This patient is a 25-year-ol d female presents for follow-up. She is bottle-fee ding the baby. The baby is doing well. Patient has not had intercours e. The patient's mood is reasonably good. We have been treating anxiety and depression since the baby was born. She is on lamotrigin e and sertraline . We agreed to continue that. She will return in 2 weeks to follow-up on depression and anxiety along with hypertensi on. Her blood pressures are good today. She is on nifedipine once a day. We will consider discontinu ation when blood pressure problem resolves. She is given precaution s about dizziness. She will follow up in 2 months for well-woman exam. She has not had any sex. She had her tubes ligated . Her bleeding Has resolved at this time. Health Concerns Section Related Observation LastModified by Organization Detai ls LastModified Time None Recorded Concern Status LastModified by Organization Details LastModified Time None Recorded Payers Encounter Date Sequence Insurance Name Policy Number Policy Roberts Covered Member ID Roberts Member ID Guarantor Name 09/29/2025 1 [facility] (MEDICAID HMO) [id number] Yuni Mejia [id number] Yuni Mejia Notes Date Note Type Note Provider Name and Address Organization Details Recorded Time 09/29/2025 text/html This patient is a 25-year-old female presents for follow-up. She is bottle-feeding the baby. The baby is doing well. Patient has not had intercourse. The patient's mood is reasonably good. We have been treating anxiety and depression since the baby was born. She is on lamotrigine and sertraline. We agreed to continue that. She will return in 2 weeks to follow-up on depression and anxiety along with hypertension. Her blood pressures are good today. She is on nifedipine once a day. We will consider discontinuation when blood pressure problem resolves. She is given precautions about dizziness. She will follow up in 2 months for well-woman exam. She has not had any sex. She had her tubes ligated . Her bleeding Has resolved at this time. Shawn Bradley MD [address], [place], [address], [facility] 09/29/2025 14:52:53 OBGyn Episode Ob Episode Information Episode Created Date Number of Fetuses Patient Bloodtype Patient rh Status Prepregnancy Weight lbs Domestic Partner Domestic Partner Phone Father Name Lens Grinder Rough Status 03/02/20 25 1 B Positive 164 CLOSED Fetus Data First Name Last Name Admitted to NICU Weight (g) Sex Living Outcome Pediatric Complications Fetus ID Race Codes Race Delivery Type Ziah false 4025.62 9 F true Full Term 40519 Vaginal Delivery Problems Problem Notes SDH form completed 5GI consult Tachycardia Holter monitor 72 order- pt sent back on 03-27-25 Cardiology referral faxed per Dr Martínez office calling pt 04/21 to schedule consult scheduled 05/11 11:15AM Problem Name Start Date End Date Resolution Snomed Code Not e Uncomplicated moderate persistent asthma 03/02/2025 818701992 albuterol prn Abnormal placenta affecting management of mother 05/04/2025 66141853 MCI serial grow th us Iron deficiency anemia 05/25/2025 35484664 [facility] tx [place] 200mg x1 HGB 10.6 Nausea and vomiting 03/02/2025 65975686 Anxiety 03/02/2025 64173892 sertralin e started 03/02/25 changed to prozac 10 on Gestational diabetes mellitus 07/08/2025 50434172 checking bs QID - ruled in GDM Referral faxed to [facility] 07/07 Frequent headache 05/03/2025 268020255 [place] to [facility] 05/21, discharge 05/23 MFM referral faxed 05/24 [facility]AL [facility] unable to see pt due to insurance 05/[facility] 07/05/25 Level US & Consult (see MFM consult zayas recommendations ) regimen prn Imitrex 50mg for acute migraine, vitamin B2 (Riboflavin) 400mg, Coenzyme q10 300mg and magnesium oxide 200 to 600mg daily. minimize use of Excedrin or Tylenol to no more than 2-3 times a week. 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/2025 2512164 32wk growth us Jun Calculation Initial Jun [...] Weight in lbs Pre/Post Dialysis Refused Weight 158.493250792285 BP Diastolic BP Location Tested BP Systolic [...] Weight in lbs Pre/Post Dialysis Refused Weight 158.376329840017 BP Diastolic BP Location Tested BP Systolic [...] Weight in lbs Pre/Post Dialysis Refused Weight 162.376581065301 BP Diastolic BP Location Tested BP Systolic BP Type 78 123 Fetus Heart Rate Present A 148 Fetus Movement A Yes Comments Patient is having having ronny n, cramping and vaginal discharge. went to ed exam done cultures and rx sent, ?FM, await pediatric cardiologist results rfilled zofran, precautions and education f/u [...] Type Weight in lbs Pre/Post Dialysis Refused 168.348589085332 BP Diastolic BP Location Tested BP Systolic [...] Type Weight in lbs Pre/Post Dialysis Refused 169.311009963984 BP Diastolic BP Location Tested BP Systolic [...] Weight in lbs Pre/Post Dialysis Refused Weight 175.829017641405 BP Diastolic BP Location Tested BP Systolic [...] Weight in lbs Pre/Post Dialysis Refused Weight 182.135684183780 BP Diastolic BP Location Tested BP Systolic [...] Weight in lbs Pre/Post Dialysis Refused Weight 181.500389800307 BP Diastolic BP Location Tested BP Systolic BP Type 73 L arm 131 sitting Fetus Heart Rate Present Fetus Movement A Yes Comments viral URI testied neg at urg ent care, nausea resolved, efw 68%, +FM plan education and precautions f/u 2 weeks diagnosed GDM, plan legal administrative secretary, gave list reviewed protein vs carb Flowsheet Date 07/21/2025 Gibson Score Blood Edema Fundus Height Fundus Units Glucose Ketones Leukocytes Nitrite Labor Signs Protein Cervic Dilation Cervic Effacement Cervic Station Type Weight in lbs Pre/Post Dialysis Refused Weight 181.092731579546 BP Diastolic BP Location Tested BP Systolic BP Type 78 L arm 127 sitting Fetus Heart Rate Present A 150 Fetus Movement A Yes Comments rpt urine culture +FM review ed blood sugars, meets with legal administrative secretary today, precautions and education f/u 2 weeks [...] Weight in lbs Pre/Post Dialysis Refused Weight 181.898765987303 BP Diastolic BP Location Tested BP Systolic [...] Weight in lbs Pre/Post Dialysis Refused Weight 183.615750205065 BP Diastolic BP Location Tested BP Systolic [...] Type Weight in lbs Pre/Post Dialysis Refused 184.786781572262 BP Diastolic BP Location Tested BP Systolic [...] Type Weight in lbs Pre/Post Dialysis Refused 184.019925919721 BP Diastolic BP Location Tested BP Systolic [...] Type Weight in lbs Pre/Post Dialysis Refused 184.061130682712 BP Diastolic BP Location Tested BP Systolic [...] Weight in lbs Pre/Post Dialysis Refused Weight 184.597074148154 BP Diastolic BP Location Tested BP Systolic [...] Weight in lbs Pre/Post Dialysis Refused Weight 164.985818099770 BP Diastolic BP Location Tested BP Systolic [...]
--- OUTSIDE RECORDS SUMMARY | 2025-10-27 12:11 | XMS_ITS ---
Author Organization Unknown Address [address] [place] [phone] Phone Care Team Providers Care Calculating Machine Operator Name Role Phone MARK Fernandez Attending [...] em Smoking History Never smoker (Never Smoked) [id number] SNOMED CT Sex Female Assessment You had [...] 6002 SNOMED-CT UNSPECIFIED ABDOMINAL PAIN active 215 39121 SNOMED-CT Allergies and Adverse Reactions Allergy Substance Reaction Severity Start Date Concern Status Co de Code System AMOXICILLIN Active 723 RxNorm TERBUTALINE Active 25017 RxNorm Plan of Treatment Stress Test Treadmill 01/21/2025 Hot Knife Cutter Consult 04/27/2025 Encounters Encounter Diagnosis Start [...]
--- OUTSIDE RECORDS SUMMARY | 2025-10-27 12:11 | XMS_ITS ---
Author Organization Unknown Address [address] [place] [phone] Phone Care Team Providers Care Supervisor Garage Name Role Phone MARK Fernandez Attending Unavailable [...] if indicated - Collect Date/Time: 05/12/2024 22:50 [facility] ID: [id number] [address] [place], [place], [address] LOINC: 17870-3 Test Value Unit Reference Range Code Code System Flag UR SOURCE CLEAN CATCH 43574-9 LOINC COLOR YELLOW YELLOW 5778-6 LOINC CLARITY SL CLOUDY CLEAR 97292-5 LOINC SPEC GRAVITY 1.025 1.000-1.030 5811-5 LOINC PH 6.0 5.0 - 6.5 5803-2 LOINC LEUK EST NEGATIVE NEGATIVE 5799-2 LOINC NITRATE NEGATIVE NEGATIVE PROTEIN NEGATIVE NEGATIVE 5804-0 LOINC GLUCOSE NEGATIVE NEGATIVE 95029-4 LOINC KETONES NEGATIVE NEGATIVE 63263-3 LOINC UROBILINOGEN 0.2 NEGATIVE 5818-0 LOINC BILIRUBIN NEGATIVE NEGATIVE 09732-5 LOINC BLOOD NEGATIVE NEGATIVE 56586-0 LOINC WBC 2-5 0 - 2 07288-9 LOINC RBC 0-2 0 - 2 23041-0 LOINC EPITHELIAL MODERATE RARE-FEW 58252-3 LOINC A BACTERIA 1+ NONE SEEN 59163-0 LOINC MUCUS FEW NONE SEEN 8247-9 LOINC YEAST NOT PRESENT NOT PRESENT 52699-2 LOINC CASTS NONE SEEN 47583-3 LOINC CRYSTALS NONE SEEN 71641-9 LOINC CULTURE? NO 8251-1 LOINC DIAGNOSIS N/A MAGNESIUM - Collect Date/Patricio e: 05/12/2024 21:25 [facility] ID: [id number] [address] [place], [place], [address] LOINC: 95205-1 Test Value Unit Reference Range Code Code System Flag MAGNESIUM 1.8 mg/dL L=1.6 H=2.3 41914-2 LOINC CBC W/ DIFF - Collect Date/T randall: 05/12/2024 21:25 [facility] ID: [id number] [address] [place], [place], [address] LOINC: 15729-4 Test Value Unit Reference Range Code Code System Flag WBC 8.5 10^3uL L=4.8 H=10.8 RBC 4.72 10^6uL L=4.20 H=5.40 HEMOGLOBIN 12.2 g/dL L=12.0 H=16.0 718-7 LOINC HEMATOCRIT 39.0 VOL% L=37.0 H=47.0 4544-3 LOINC MCV 82.6 fL L=81.0 H=99.0 MCH 25.8 pg L=27.0 H=32.0 L MCHC 31.3 g/dL L=32.0 H=36.0 L PLATELETS 278 10^3uL L=100 H=400 07893-6 LOINC RDW 13.5 % L=11.7 H=15.5 %GRAN 47.6 % L=40.0 H=70.0 57172-8 LOINC %LYMPH 39.8 % L=20.0 H=45.0 736-9 LOINC %MONO 8.8 % L=2.0 H=10.0 23248-6 LOINC %EOS 3.3 % L=0.0 H=6.0 713-8 LOINC %BASO 0.4 % L=0.0 H=3.0 706-2 LOINC #NEUT 4.1 10^3uL L=1.9 H=7.6 62972-4 LOINC #LYMPH 3.4 10^3uL L=0.9 H=4.9 45940-9 LOINC #MONO 0.8 10^3uL L=0.1 H=0.9 96041-6 LOINC #EOS 0.3 10^3uL L=0.0 H=0.6 712-0 LOINC #BASO 0.03 10^3uL L=0.00 H=0.10 70310-0 LOINC #IM GRANS 0.0 10^3uL L=0.0 H=7.0 82393-4 LOINC %IM GRANS 0.1 % L=0.0 H=5.0 32773-8 LOINC %NRB 0.0 L=0.0 H=0.2 34816-7 LOINC #NRB 0.000 L=0.000 H=0.012 19365-0 LOINC MANUAL DIFF NOT INDICATED RBC MORPH NOT INDICATED COMPREHENSIVE METABOLIC PANE L - Collect Date/Time: 05/12/2024 21:25 [facility] ID: [id number] [address] [place], [place], [address] LOINC: 69269-5 Test Value Unit Reference Range Code Code [...] 2028-9 LOINC ANION GAP 8 L=10 H=20 70863-2 LOINC L OSMOLALITY 289 mOs/kG L=280 H=296 98338-3 LOINC BUN/CREAT 20.0 3097-3 LOINC CALCIUM 9.0 mg/dL L=8.3 H=10.5 55714-8 LOINC AST 28 U/L L=15 H=46 1920-8 LOINC ALT 20 U/L L=9 H=72 1742-6 LOINC ALKALINE PHOS 107 U/L L=38 H=126 6768-6 LOINC TOTAL BILI 0.2 mg/dL L=0.2 H=1.3 1975-2 LOINC ALBUMIN 4.1 G/dL L=3.5 H=5.0 1751-7 LOINC TOTAL PROTEIN 7.1 g/L L=6.3 H=8.2 2885-2 LOINC A/G RATIO 1.4 12922-8 LOINC AGE 24 91024-3 LOINC eGFR NON-AFR 81 ml/min eGFR AFR AMER 98 ml/min TSH - Collect Date/Time: 21:25 [facility] ID: [id number] [address] [place], [place], [address] LOINC: 85736-3 Test Value Unit Reference Range Code Code System Flag TSH. 0.325 uIU/L L=0.470 H=4.680 19731-6 LOINC L Social History Type Status Start Date End Date Code Code Syst em Smoking History Never smoker (Never Smoked) 330595591 SNOMED CT Sex Female Assessment You had [...] 6002 SNOMED-CT UNSPECIFIED ABDOMINAL PAIN active 215 90518 SNOMED-CT Allergies and Adverse Reactions Allergy Substance Reaction Severity Start Date Concern Status Co de Code System AMOXICILLIN Active 723 RxNorm TERBUTALINE Active 00786 RxNorm Plan of Treatment Stress Test Treadmill 01/21/2025 Machine Printer Hose Consult 04/27/2025 Encounters Encounter Diagnosis Start Date [...] - Primary care physician 2023-0 7-16 2024-09-12 Hnog Abdi PCP - Primary care physician 2024-09-12
--- OUTSIDE RECORDS SUMMARY | 2025-10-27 12:11 | XMS_ITS ---
Author Organization Unknown Address [address] [place] [phone] Phone Care Team Providers Care Personnel Clerk Name Role Phone DAVID ASHTON Attending Unavailable [...] LEVEL - Collect Neil e/Time: 06/23/2024 19:14 [facility] ID: [id number] [address] [place], [place], [phone] LOINC: 43862-3 Test Value Unit Reference Range Code Code System Flag TROPONIN < 0.012 ng/mL L=0.000 H=0.033 83704-2 LOINC CBC W/ DIFF - Collect Date/T randall: 06/23/2024 15:22 [facility] ID: [id number] [address] [place], [place], [phone] LOINC: 94390-8 Test Value Unit Reference Range Code Code System Flag WBC 7.8 10^3uL L=4.8 H=10.8 RBC 4.88 10^6uL L=4.20 H=5.40 HEMOGLOBIN 12.7 g/dL L=12.0 H=16.0 718-7 LOINC HEMATOCRIT 40.6 VOL% L=37.0 H=47.0 4544-3 LOINC MCV 83.2 fL L=81.0 H=99.0 MCH 26.0 pg L=27.0 H=32.0 L MCHC 31.3 g/dL L=32.0 H=36.0 L PLATELETS 290 10^3uL L=100 H=400 24497-6 LOINC RDW 13.8 % L=11.7 H=15.5 %GRAN 48.3 % L=40.0 H=70.0 66287-5 LOINC %LYMPH 40.2 % L=20.0 H=45.0 736-9 LOINC %MONO 8.0 % L=2.0 H=10.0 49352-7 LOINC %EOS 2.8 % L=0.0 H=6.0 713-8 LOINC %BASO 0.4 % L=0.0 H=3.0 706-2 LOINC #NEUT 3.8 10^3uL L=1.9 H=7.6 39016-3 LOINC #LYMPH 3.2 10^3uL L=0.9 H=4.9 68203-9 LOINC #MONO 0.6 10^3uL L=0.1 H=0.9 53738-2 LOINC #EOS 0.2 10^3uL L=0.0 H=0.6 712-0 LOINC #BASO 0.03 10^3uL L=0.00 H=0.10 10670-9 LOINC #IM GRANS 0.0 10^3uL L=0.0 H=7.0 94729-0 LOINC %IM GRANS 0.3 % L=0.0 H=5.0 24446-4 LOINC %NRB 0.0 L=0.0 H=0.2 89366-8 LOINC #NRB 0.000 L=0.000 H=0.012 67286-4 LOINC MANUAL DIFF NOT INDICATED RBC MORPH NOT INDICATED COMPREHENSIVE METABOLIC PANE L - Collect Date/Time: 06/23/2024 15:22 [facility] ID: [id number] [address] [place], [place], [phone] LOINC: 86170-1 Test Value Unit Reference Range Code Code [...] 2028-9 LOINC ANION GAP 14 L=10 H=20 98712-5 LOINC OSMOLALITY 294 mOs/kG L=280 H=296 88159-2 LOINC BUN/CREAT 21.1 3097-3 LOINC CALCIUM 9.5 mg/dL L=8.3 H=10.5 25208-7 LOINC AST 31 U/L L=15 H=46 1920-8 LOINC ALT 22 U/L L=9 H=72 1742-6 LOINC ALKALINE PHOS 90 U/L L=38 H=126 6768-6 LOINC TOTAL BILI 0.4 mg/dL L=0.2 H=1.3 1975-2 LOINC ALBUMIN 4.6 G/dL L=3.5 H=5.0 1751-7 LOINC TOTAL PROTEIN 7.8 g/L L=6.3 H=8.2 2885-2 LOINC A/G RATIO 1.4 95787-0 LOINC AGE 24 88349-9 LOINC eGFR NON-AFR 81 ml/min eGFR AFR AMER 98 ml/min LIPASE - Collect Date/Time: 06/23/2024 15:22 [facility] ID: [id number] [place] [address], [phone] LOINC: 3040-3 Test Value Unit Reference Range Code Code System Flag LIPASE 118 U/L L=23 H=300 3040-3 LOINC TROPONIN LEVEL - Collect Neil e/Time: 06/23/2024 15:22 [facility] ID: [id number] [place] [address], [phone] LOINC: 09951-5 Test Value Unit Reference Range Code Code System Flag TROPONIN < 0.012 ng/mL L=0.000 H=0.033 60867-8 LOINC TEST SERUM - Colle ct Date/Time: 06/23/2024 15:22 [facility] ID: [id number] [place] [address], [phone] LOINC: Test Value Unit Reference Range Code Code System Flag SERUM PREG NEGATIVE D DIMER - Collect Date/Time: 06/23/2024 15:22 [facility] ID: [id number] [address] [place], [place], [phone] LOINC: Test Value Unit Reference Range Code [...] Justa Nagy M.D. AT: AT Report ID: [id number] Reading Location: [id number] CT CHEST PE ANGIO W/ CONTRAS T - Completed: 06/23/2024 16:55 LOINC: 40615-7 EXAM DESCRIPTION: CT CHEST PE ANGIO W/ [...] Justa Nagy M.D. AT: AT Report ID: [id number] Reading Location: [id number] US GALLBLADDER - Completed: 06/23/2024 15:44 LOINC: [...] John Arango D.O. AP: AP Report ID: [id number] Reading Location: [place] [address] Social History Type Status Start Date End Date Code Code Syst em Smoking History Never smoker (Never Smoked) 416738211 SNOMED CT Sex Female Assessment You had [...] 6002 SNOMED-CT UNSPECIFIED ABDOMINAL PAIN active 215 48220 SNOMED-CT Allergies and Adverse Reactions Allergy Substance Reaction Severity Start Date Concern Status Co de Code System AMOXICILLIN Active 723 RxNorm TERBUTALINE Active 08351 RxNorm Plan of Treatment Stress Test Treadmill 01/21/2025 Mechanist Consult 04/27/2025 Encounters Encounter Diagnosis Start Date [...]
--- OUTSIDE RECORDS SUMMARY | 2025-10-27 12:12 | XMS_ITS | Continuity of Care Document ---
Author Organization [facility], [facility] Address [address] [place] [address] Care Team Providers Care Custodial Operations Manager Name Role Phone CARLOS ESTRADA Primary Care [...] Available [facility] [address], [place], [address], 03/06/2025 03:58:26 03/06/20 25 03/06/2025 [UNIT Y] ANEUP LOIDY NIPT sex chromosome aneuploidy NOT DETECT ED normal Not Available [facility] [address], [place], [address], 03/06/2025 03:58:26 03/06/20 25 03/06/2025 [UNIT Y] ANEUP LOIDY NIPT monosomy X LOW RISK <1 in 10,000 normal Not Available [facility] [address], [place], [address], 03/06/2025 03:58:26 03/06/20 25 03/06/2025 [UNIT Y] ANEUP LOIDY NIPT trisomy 13 LOW RISK <1 in 10,000 normal Not Available [facility] [address], [place], [address], 03/06/2025 03:58:26 03/06/20 25 03/06/2025 [UNIT Y] ANEUP LOIDY NIPT trisomy 18 LOW RISK <1 in 10,000 normal Not Available [facility] [address], [place], [address], 03/06/2025 03:58:26 03/06/20 25 03/06/2025 [UNIT Y] ANEUP LOIDY NIPT trisomy 21 LOW RISK <1 in 10,000 normal Not Available [facility] [address], [place], [address], 03/06/2025 03:58:26 03/06/20 25 03/06/2025 [UNIT Y] ANEUP LOIDY NIPT sex FEMALE normal Not Available [facility] [address], [place], [address], 03/06/2025 03:58:26 03/06/20 25 03/06/2025 [UNIT Y] ANEUP LOIDY NIPT gestation SINGLE TON normal Not Available [facility] [address], [place], [address], 03/06/2025 03:58:26 03/06/20 25 03/06/2025 [UNIT Y] ANEUP LOIDY NIPT for detailed report, see pdf See PDF normal Not Available [facility] [address], [place], [address], 03/06/2025 03:58:26 03/02/20 25 03/02/2025 CULTU RE: URINE result report SEE RESULT S BELOW Test: Cultu re: Urine Speci men Sourc e: Urine - Clean Catch Speci men Type: Urine Speci men Date: 025 1455 Resul t Date: 025 2138 Resul t Statu s: Final resul t Abnor mal: No Resul ting Lab: [facility] [address] [facility] [address] Tel: CULTU RE ----- ----- ----- --- No growt h in 1 day (dete ction level of 10,00 0 colon ies / ml.) Not Available [facility] (Lab) [address] [facility], [place], [address], 03/03/2025 22:42:27 03/12/2003/12/2025 CULTU RE: URINE result report SEE RESULT S BELOW Test: Cultu re: Urine Speci men Sourc e: Urine - Clean Catch Speci men Type: Urine Speci men Date: 2024 1600 Resul t Date: 2024 0610 Resul t Statu s: Final resul t Abnor mal: No Resul ting Lab: [facility] [address] [facility] [address] Tel: CULTU RE ----- ----- ----- --- No growt h in 1 day (dete ction level of 10,00 0 colon ies / ml.) Not Available [facility] (Lab) [address], [place], [address], 03/14/2025 07:15:03 03/12/2003/12/2025 urina lysis , dipst ick Leukocytes ++ Not Available [facility] [address], [place], [address], 03/12/2025 16:45:06 03/12/20 25 03/12/2025 urina lysis , dipst ick Protein + Not Available [place] [address], [place], [address], 03/12/2025 16:45:06 03/12/20 03/12/2025 urina lysis , dipst ick pH 5 Not Available [place] [address], [place], [address], 03/12/2025 16:45:06 03/12/20 25 03/12/2025 urina lysis , dipst ick Blood trace Not Available [place] [address], [place], [address], 03/12/2025 16:45:06 03/12/20 25 03/12/2025 urina lysis , dipst ick Specific [place] 1.015 Not Available [facility] [address], [place], [address], 03/12/2025 16:45:06 03/12/20 25 03/12/2025 urina lysis , dipst ick Ketone +++ Not Available [place] [address], [place], [address], 03/12/2025 16:45:06 03/31/20 25 03/31/2025 TSH, REFLE X FREE T4 TSH 0.42 uIU/m L 0.30-5 .33 Not Available [facility] (Lab) [address], [place], [address], 04/01/2025 03:05:12 03/31/20 25 03/31/2025 CULTU RE: URINE result report SEE RESULT S BELOW Test: Cultu re: Urine Speci men Sourc e: Urine Voide d Speci men Type: Urine Speci men Date: 1710 Resul t Date: 6 Resul t Statu s: Final resul t Abnor mal: No Resul ting Lab: [facility] [address] [facility] [address] Tel: CULTU RE ----- ----- ----- --- Cultu re resul t (>=3 organ isms prese nt) indic ates possi ble conta minat ion. Repea t cultu re if sympt oms indic ate. Not Available [facility] (Lab) [address], [place], [address], 04/01/2025 23:59:19 03/31/20 25 03/31/2025 urina lysis , dipst ick Leukocytes +1 Not Available [facility] [address], [place], [address], 03/31/2025 09:23:13 03/31/20 25 03/31/2025 urina lysis , dipst ick Nitrite normal Not Available [place] [address], [place], [address], 03/31/2025 09:23:13 03/31/20 25 03/31/2025 urina lysis , dipst ick Urobilinogen normal Not Available [facility] david [address], [place], [address], 03/31/2025 09:23:13 03/31/20 25 03/31/2025 urina lysis , dipst ick Protein trace Not Available [place] [address], [place], [address], 03/31/2025 09:23:13 03/31/20 25 03/31/2025 urina lysis , dipst ick pH 5 Not Available [place] [address], [place], [address], 03/31/2025 09:23:13 03/31/20 25 03/31/2025 urina lysis , dipst ick Specific [place] 1.020 Not Available [facility] [address], [place], [address], 03/31/2025 09:23:13 03/31/20 25 03/31/2025 urina lysis , dipst ick Ketone normal Not Available [place] [address], [place], [address], 03/31/2025 09:23:13 03/31/20 25 03/31/2025 urina lysis , dipst ick Bilirubin normal Not Available [facility] anna [address], [place], [address], 03/31/2025 09:23:13 03/31/20 25 03/31/2025 urina lysis , dipst ick Glucose normal Not Available [place] [address], [place], [address], 03/31/2025 09:23:13 03/31/20 25 03/31/2025 urina lysis , dipst ick Appearance normal Not Available [facility] domingo [address], [place], [address], 03/31/2025 09:23:13 03/31/20 25 03/31/2025 urina lysis , dipst ick Color normal Not Available [place] [address], [place], [address], 03/31/2025 09:23:13 04/01/20 25 04/01/2025 WOMEN 'S HEALT H SWAB PLUS, DENIS bacterial vaginosis (bv), tma Negati ve negati ve Not Available [facility] (Lab) [address] [place], [address], 04/02/2025 14:08:45 04/01/20 25 04/01/2025 WOMEN 'S HEALT H SWAB PLUS, DENIS mekhi species, tma Negati ve negati ve Not Available [facility] (Lab) [address] [place], [address], 04/02/2025 14:08:45 04/01/20 25 04/01/2025 WOMEN 'S HEALT H SWAB PLUS, DENIS mekhi glabrata, tma Negati ve negati ve Not Available [facility] (Lab) [address] [place], [address], 04/02/2025 14:08:45 04/01/2004/01/2025 WOMEN 'S HEALT H SWAB PLUS, DENIS trichomonas vaginalis, tma Negati ve negati ve Not Available [facility] (Lab) [address], [place], [address], 04/02/2025 14:08:45 04/01/2004/01/2025 [facility], DENIS chlamydia trachomatis, PCR Negati ve negati ve Not Available [facility] (Lab) [address] [place], [address], 04/02/2025 14:08:45 04/01/2004/01/2025 WOMEN 'S HEALT H [...] ded in this panel . Not Available [facility] (Lab) [address], [place], [address], 04/02/2025 14:08:45 04/22/2004/22/2025 CULTU RE: URINE result report SEE RESULT S BELOW Test: Cultu re: Urine Speci men Sourc e: Urine Voide d Speci men Type: Urine Speci men Date: 2024 1314 Resul t Date: 2024 0322 Resul t Statu s: Final resul t Abnor mal: No Resul ting Lab: [facility] [address] [facility] [address] Tel: CULTU RE ----- ----- ----- --- No growt h in 1 day (dete ction level of 10,00 0 colon ies / ml.) Not Available [facility] (Lab) [address], [place], [address], 04/24/2025 04:28:01 04/22/20 25 04/22/2025 urina lysis , dipst ick Leukocytes + Not Available [facility] domingo [address], [place], [address], 04/22/2025 10:01:51 04/22/20 25 04/22/2025 urina lysis , dipst ick Protein + Not Available [place] [address], [place], [address], 04/22/2025 10:01:51 04/22/20 25 04/22/2025 urina lysis , dipst ick pH 8 Not Available [place] [address], [place], [address], 04/22/2025 10:01:51 04/22/20 25 04/22/2025 urina lysis , dipst ick Blood + Not Available [place] [address], [place], [address], 04/22/2025 10:01:51 04/22/20 25 04/22/2025 urina lysis , dipst ick Specific [place] 1.010 Not Available [facility] [address], [place], [address], 04/22/2025 10:01:51 04/22/2004/22/2025 urina lysis , dipst ick Ketone + Not Available [place] [address], [place], [address], 04/22/2025 10:01:51 06/23/2006/23/2025 HEMAT OCRIT (HCT) HCT 35.6 % (based on docume nted legal sex) 34.0-4 5.0 Not Available [facility] (Lab) [address], [place], [address], 06/24/2025 11:45:32 06/23/20 25 06/23/2025 HEMOG LOBIN (HGB) HGB 11.1 g/dL (based on docume nted legal sex) 11.6-1 5.4 low Not Available [facility] (Lab) [address], [place], [address], 06/24/2025 11:45:32 06/23/20 25 06/23/2025 GTT - GESTA ROLAND L JOSE N, ACOG OB glucose, 1 hour screen 180 mg/dL 70-135 high Not Available [facility] (Lab) [address] [place], [address], 06/24/2025 11:45:33 06/23/20 25 06/23/2025 HIV 1/2 ANTIG EN/AN TIBOD Y, REFLE X CONFI RMATI ON HIV antigen/anti body Nonrea ctive nonrea ctive HIV-1 antig en and HIV-1 /HIV- 2 antib odies were not detec greg. No labor atory evide nce of HIV infec tion. Not Available [facility] (Lab) [address], [place], [address], 06/24/2025 11:45:33 08/06/23/2025 RPR SCREE N, REFLE X TITER /CONF IRMAT ION RPR qualitative Nonrea ctive nonrea ctive Not Available [facility] (Lab) [address], [place], [address], 06/24/2025 11:45:34 07/21/2007/21/2025 CULTU RE: URINE result report SEE RESULT S BELOW Test: Cultu re: Urine Speci men Sourc e: Urine - Clean Catch Speci men Type: Urine Speci men Date: 2024 1024 Resul t Date: 2024 0252 Resul t Statu s: Final resul t Abnor mal: No Resul ting Lab: [facility] [address] [facility] [address] Tel: CULTU RE ----- ----- ----- --- No growt h in 1 day (dete ction level of 10,00 0 colon ies / ml.) Not Available [facility] (Lab) [address], [place], [address], 07/23/2025 03:57:01 07/21/2007/21/2025 urina lysis , dipst ick Leukocytes ++ Not Available [address], [place], [address], 07/21/2025 11:03:04 07/21/20 25 07/21/2025 urina lysis , dipst ick Nitrite neg Not Available [place] [address], [place], [address], 07/21/2025 11:03:04 07/21/20 25 07/21/2025 urina lysis , dipst ick Urobilinogen neg Not Available [facility] hern[facility] [address], [place], [address], 07/21/2025 11:03:04 07/21/20 25 07/21/2025 urina lysis , dipst ick Protein + Not Available [place] [address], [place], [address], 07/21/2025 11:03:04 07/21/20 25 07/21/2025 urina lysis , dipst ick pH 5 Not Available [facility] [place] [address], [place], [address], 07/21/2025 11:03:04 07/21/20 25 07/21/2025 urina lysis , dipst ick Specific [place] 1.030 [facility] Available [facility] [address], [place], [address], 07/21/2025 11:03:04 07/21/20 25 07/21/2025 urina lysis , dipst ick Ketone +++ Not Available [facility] [place] [address], [place], [address], 07/21/2025 11:03:04 07/21/20 25 07/21/2025 urina lysis , dipst ick Bilirubin neg Not Available Jaelyn castillo [address], [place], [address], 07/21/2025 11:03:04 07/21/20 25 07/21/2025 urina lysis , dipst ick Glucose neg Not Available [facility] [place] [address], [place], [address], 07/21/2025 11:03:04 07/21/20 25 07/21/2025 urina lysis , dipst ick Appearance cloudy Not Available [address], [place], [address], 07/21/2025 11:03:04 07/21/20 25 07/21/2025 urina lysis , dipst ick Color dark Not Available [place] [address], [place], [address], 07/21/2025 11:03:04 08/04/2008/04/2025 CMP(C OMPRE HENSI VE METAB OLIC PANEL ) sodium 138 mmol/ L 133-14 6 Not Available [facility] (Lab) [address], [place], [address], 08/05/2025 13:39:18 08/04/20 25 08/04/2025 CMP(C OMPRE HENSI VE METAB OLIC PANEL ) potassium 4.0 mmol/ L 3.5-5. 1 Not Available [facility] (Lab) [address], [place], [address], 08/05/2025 13:39:18 08/04/20 25 08/04/2025 CMP(C OMPRE HENSI VE METAB OLIC PANEL ) chloride 105 mmol/ L 98-107 Not Available [facility] (Lab) [address], [place], [address], 08/05/2025 13:39:18 08/04/20 25 08/04/2025 CMP(C OMPRE HENSI VE METAB OLIC PANEL ) carbon dioxide 25 mmol/ L 21-31 Not Available [facility] (Lab) [address], [place], [address], 08/05/2025 13:39:18 08/04/20 25 08/04/2025 CMP(C OMPRE HENSI VE METAB OLIC PANEL ) anion gap 8 mmol/ L 4-13 Not Available [facility] (Lab) [address] [place], [address], 08/05/2025 13:39:18 08/04/20 25 08/04/2025 CMP(C OMPRE HENSI VE METAB OLIC PANEL ) blood urea nitrogen 10 mg/dL 7-25 Not Available [facility] (Lab) [address], [place], [address], 08/05/2025 13:39:18 08/04/20 25 08/04/2025 CMP(C OMPRE HENSI VE METAB OLIC PANEL ) creatinine 0.41 mg/dL 0.60-1 .30 low Not Available [facility] (Lab) [address], [place], [address], 08/05/2025 13:39:18 08/04/20 25 08/04/2025 CMP(C OMPRE HENSI VE METAB OLIC PANEL ) egfrcr (CKD-epi 2020) >90 mL/mi n/1.7 3_m2 >=60 Not Available [facility] (Lab) [address], [place], [address], 08/05/2025 13:39:18 08/04/20 25 08/04/2025 CMP(C OMPRE HENSI VE METAB OLIC PANEL ) calcium 8.9 mg/dL 8.3-10 .5 Not Available [facility] (Lab) [address], [place], [address], 08/05/2025 13:39:18 08/04/20 25 08/04/2025 CMP(C OMPRE HENSI VE METAB OLIC PANEL ) glucose 116 mg/dL 70-100 high Not Available [facility] (Lab) [address], [place], [address], 08/05/2025 13:39:18 08/04/20 25 08/04/2025 CMP(C OMPRE HENSI VE METAB OLIC PANEL ) protein, total 6.1 g/dL 6.4-8. 3 low Not Available [facility] (Lab) [address], [place], [address], 08/05/2025 13:39:18 08/04/20 25 08/04/2025 CMP(C OMPRE HENSI VE METAB OLIC PANEL ) albumin 3.5 g/dL 3.5-5. 0 Not Available [facility] (Lab) [address], [place], [address], 08/05/2025 13:39:18 08/04/20 25 08/04/2025 CMP(C OMPRE HENSI VE METAB OLIC PANEL ) ALT 11 units /L 9-43 Not Available [facility] (Lab) [address], [place], [address], 08/05/2025 13:39:18 08/04/20 25 08/04/2025 CMP(C OMPRE HENSI VE METAB OLIC PANEL ) alkaline phosphatase 98 units /L 34-104 Not Available [facility] (Lab) [address], [place], [address], 08/05/2025 13:39:18 08/04/20 25 08/04/2025 CMP(C OMPRE HENSI VE METAB OLIC PANEL ) AST 15 units /L 13-39 Not Available [facility] (Lab) [address], [place], [address], 08/05/2025 13:39:18 08/04/20 25 08/04/2025 CMP(C OMPRE HENSI VE METAB OLIC PANEL ) bilirubin, total 0.3 mg/dL 0.2-1. 2 Not Available [facility] (Lab) [address], [place], [address], 08/05/2025 13:39:18 08/04/20 25 08/04/2025 BILE ACIDS , TOTAL bile acids, total 4 umol/ L 0-10 Test Perfo rmed by: Luke hern[facility]dez rn [facility] [address] [address] Not Available [facility] (Lab) [address], [place], [address], 08/05/2025 13:39:19 03/02/20 25 03/02/2025 US, obste tric, nucha l trans lucen cy No observ ation record ed. [email or web address] [place] [address], [place], [address], 03/02/2025 13:35:30 03/02/20 25 03/02/2025 US, obste tric, nucha l trans lucen cy No observ ation record ed. [email or web address] [address], [place], [address], 03/03/2025 14:08:39 03/08/20 25 03/08/2025 US, obste tric, 1st trime ster No observ ation record ed. [email or web address] [place] [address], [place], [address], 03/08/2025 12:22:22 03/08/20 25 03/08/2025 US, obste tric, 1st trime ster No observ ation record ed. [email or web address] Esha [address], [place], [address], 03/10/2025 15:03:13 04/01/20 25 03/24/2025 qamar r monit or No observ ation record ed. [address] [facility], [place], [address], 04/08/2025 12:36:45 04/01/20 25 03/22/2025 qamar r monit or No observ ation record ed. [address] (Pulmonary) [address] [place] [address] [address]te [facility], [place], [address], 04/06/2025 08:59:34 04/20/20 25 04/20/2025 US, obste tric, limit ed No observ ation record ed. [email or web address] [place] [address], [place], [address], 04/20/2025 17:39:30 04/20/20 25 04/20/2025 US, obste tric, follo w-up No observ ation record ed. Esha [address], [place], [address], 04/23/2025 08:32:54 04/28/20 25 04/28/2025 US, obste tric, 2nd or 3rd trime ster No observ ation record ed. [email or web address] [place] [address], [place], [address], 04/28/2025 17:48:42 04/28/20 25 04/28/2025 US, obste tric, 2nd or 3rd trime ster No observ ation record ed. [email or web address] E[address] [facility] [address], [place], [address], 05/04/2025 22:16:11 05/07/20 25 05/07/2025 non-s tress test No observ ation record ed. [address], [place], [address], 05/28/2025 13:33:54 05/21/20 25 05/21/2025 CT, head + brain , w/o contr ast No observ ation record ed. [address], [place], [address], 05/24/2025 13:48:57 05/28/20 25 05/28/2025 US, obste tric, follo w-up No observ ation record ed. [email or web address] [address], [place], [address], 05/28/2025 17:32:34 05/28/20 25 05/28/2025 US, obste tric, follo w-up No observ ation record ed. [email or web address] [address], [place], [address], 06/01/2025 15:13:13 06/08/20 25 06/07/2025 US, obste tric, follo w-up No observ ation record ed. [email or web address] [facility] [address] , [place], [address], 06/15/2025 10:53:46 07/07/2007/07/2025 US, obste tric, follo w-up No observ ation record ed. [email or web address] [place] [address], [place], [address], 07/07/2025 13:18:01 07/07/20 25 07/07/2025 US, obste tric, follo w-up No observ ation record ed. [email or web address] [address], [place], [address], 07/07/2025 11:29:37 08/04/2008/04/2025 US, obste tric, follo w-up No observ ation record ed. [email or web address] [place] [address], [place], [address], 08/04/2025 15:08:50 08/04/20 25 08/04/2025 US, obste tric, follo w-up No observ ation record ed. [email or web address] [address], [place], [address], 08/06/2025 10:41:50 08/11/2008/11/2025 non-s tress test No observ ation record ed. [email or web address] [place] [address], [place], [address], 08/11/2025 17:37:52 08/11/20 non-s tress test No observ ation record ed. [email or web address] [place] [address], [place], [address], 08/11/2025 17:38:11 08/15/20 25 08/15/2025 non-s tress test No observ ation record ed. [address], [place], [address], 08/21/2025 10:18:57 08/15/2008/15/2025 US, obste tric, bioph ysica l profi le No observ ation record ed. [email or web address] [facility] [address], [place], [address], 08/17/2025 10:50:53 08/18/2008/18/2025 US, obste tric, bioph ysica l profi le + non-s tress test No observ ation record ed. [email or web address] [place] [address], [place], [address], 08/18/2025 10:21:39 08/18/2008/18/2025 US, obste tric, bioph ysica l profi le + non-s tress test No observ ation record ed. [email or web address] [address], [place], [address], 08/18/2025 10:35:44 08/18/2008/18/2025 non-s tress test No observ ation record ed. [email or web address] [facility] [place] [address], [place], [address], 08/18/2025 17:34:03 08/18/20 non-s tress test No observ ation record ed. [email or web address] [facility] [place] [address], [place], [address], 08/18/2025 16:06:09 08/25/2008/25/2025 US, obste tric, bioph ysica l profi le + non-s tress test No observ ation record ed. [email or web address] [facility] [place] [address], [place], [address], 08/25/2025 18:52:06 08/25/2008/25/2025 US, obste tric, follo w-up No observ ation record ed. [email or web address] [address], [place], [address], 08/25/2025 15:47:28 08/25/20 25 08/25/2025 non-s tress test No observ ation record ed. [email or web address] [place] [address], [place], [address], 08/25/2025 18:12:15 08/25/20 non-s tress test No observ ation record ed. [email or web address] [place] [address], [place], [address], 08/25/2025 17:21:19 08/30/20 25 08/30/2025 non-s tress test No observ ation record ed. [address], [place], [address], 09/15/2025 15:26:49 09/01/20 25 09/01/2025 non-s tress test No observ ation record ed. [email or web address] [id number] [facility] [address], [place], [address], 09/13/2025 11:32:22 09/01/20 25 09/01/2025 US, obste tric No observ ation record ed. [place] [id number] [facility] [address], [place], [address], 09/02/2025 15:56:01 09/01/20 25 09/01/2025 non-s tress test No observ ation record ed. [email or web address], [place], [address], 09/02/2025 14:32:38 09/16/20 25 09/16/2025 CT, angio gram, head + neck, w/ contr ast No observ ation record ed. [email or web address] [id number] [facility] [address], [place], [address], 09/16/2025 20:01:05 09/28/20 25 09/28/2025 non-s tress test No observ ation record ed. [address] [facility] [address], [place], [address], 10/04/2025 16:42:40 Result Notes None recorded. Problems Name Problem SNOMED Code Status Onset Date Resolution Date Notes Provider Name and Address Organization Details Recorded Time Hypereme sis 660354164 Completed phenerga n now prn Asia Baileyashutosh ramos [facility] 2 16:43:51 Anxiety in pregnanc y [id number] Completed will continue to monitor Asia Baileyashutosh ramos [facility] 2 16:43:51 Past pregnanc y history of gestatio nal diabetes mellitus [id number] Completed Early 1 hr GTT @ 20wks 11/03 APPT Asia Luis ramos [facility] 2 16:43:51 Spinal muscular atrophy [id number] Completed Carrier - Not in contact with FOB. Asia Luis ramos [facility] 2 16:43:51 Anxiety [id number] Completed prozac Karina ramos [facility] 4 11:00:46 Nausea [id number] Completed d/c zofran pump 11/08 per pt request Karina ramos [facility] 4 11:00:46 Postpart um hemorrha ge [id number] Completed 2017 with d&c Karina ramos [facility] 4 11:00:46 Normal pregnanc y in multigra jessy [id number] Completed 201907/05/2021 Encounte r for supervis ion of other normal pregnanc y, 3rd trimeste r;Record ed Elsewher e: No Locat ion: Griceldaeda anna [facility] S ource: EHR Radiology Director yvrose: N Practi ce ID: 0001 Gigi lable Time: 10:45:00 AM Karina ramos [facility] 10:15:27 Gestatio n period, 37 weeks [id number] Completed 201907/05/2021 37 weeks gestatio n of pregnanc y;Record ed Elsewher e: No Locat ion: [facility] S ource: EHR Radiology Director yvrose: N Practi ce ID: 0001 Gigi lable Time: 09:00:00 AM Karina Burroughs [facility] 10:15:[address] Concept Completed 201907/05/2021 Matern care for abnlt fetl hrt rate or rhym, 3rd tri, unsp;Rec orded Elsewher e: No Locat ion: [facility] S ource: EHR Radiology Director yvrose: N Practi ce ID: 0001 Gigi lable Time: 08:45:00 AM Karina ramos [facility] 10:15:29 Gestatio nal diabetes mellitus [id number] Completed 201907/05/2021 Gestatio nal diabetes mellitus in pregnanc y, diet controll ed;Recor ded Elsewher e: No [facility] Radiology Director yvrose: N Practi ce ID: 0001 Gigi lable Time: 11:45:00 AM Karina ramos [facility] 10:15:25 Gestatio n period, 38 weeks [id number] Completed 201907/05/2021 38 weeks gestatio n of pregnanc y;Record ed Elsewher e: No Locat ion: [facility] S ource: EHR Radiology Director yvrose: N Practi ce ID: 0001 Gigi lable Time: 11:30:00 AM Karina ramos [facility] 10:15:13 Amenorrh ea 55901531 Completed 202007/10/2021 Tammi Jones null, [facility] 13:08:35 Pregnanc y 40457131 Completed 202003/29/2022 Emma Dykes null, [facility] 5 12:28:48 Pregnanc y 95408754 Completed 202304/22/2024 Emma Dykes null, [facility] 12:28:48 Headache 21850172 Active 2023 Karina Burroughs null, [facility] 16:19:28 Pregnanc y 77706198 Completed 202309/14/2025 Emma Dykes null, [facility] 12:28:48 Uncompli cated moderate persiste nt asthma 920796197 Completed 2024 albutero l prn Shawn Bradley MD [address], [place], [address], [facility] 13:08:36 Anxiety 16334741 Completed 2024 sertrali ne started 03/02/25 changed to prozac 10 on Shawn Bradley MD [address], [place], [address], [facility] 5 17:05:48 Nausea and vomiting 02463306 Completed 2024 Shawn Bradley MD [address], [place], [address], [facility] 13:20:27 Placenta circumva llata 3748349 Completed 2024 32wk [facility] 09:44:35 Frequent headache 285430308 Completed 2024 transpor t to [facility] 05/21, discharg e 05/23 [facility]FM referral faxed 05/24 [facility] per KAJAL Pittman [facility]- [facility] unable to [...] Ryann ramos [facility] 5 10:55:26 Abnormal placenta affectin g manageme nt of mother 09441158 Completed 2024 [facility] serial [facility] 10:46:25 Iron deficien cy anemia 77928523 Completed 2024 SS MFM tx venofer 200mg x1 HGB 10.6 [facility] 15:21:25 Gestatio nal diabetes mellitus 80844442 Completed 2024 checking bs QID - ruled in GDM Referral fax[facility] to [facility] 14:36:52 Notes:[facility], and home health already caring for pt. Vladimir RDZ at [phone] Problem Notes None recorded. Procedures Surgical History Date Name Laterality Status Provider Name and Address Organization Details Recorded Time 025 SALPINGECTOMY, LAPAROSCOPIC (SURG) completed Not Available [facility] 09/06/2025 11:19:17 025 Date of Last Pap Smear completed Karina Burroughs [facility] 01/28/2025 11:19:42 024 Nexplanon Removal completed Shawn Bradley MD [address], [place], [address], [facility] 08/05/2024 15:09:58 024 Control Implant Insertion completed Anju Mcnamara CNM [address], [place], [address], [facility] 05/08/2024 17:59:34 024 cholecystectomy completed Karina Burroughs [facility] 03/31/2025 09:18:57 018 Dilation and Curettage completed Karinasofia Burroughs [facility] 07/05/2021 10:17:50 Imaging Results None recorded. Procedure Notes None recorded. Medical Equipment None Reported. Allergies Allergen ID Allergen Name Allergen Category Reaction Reaction Severity Criticality Documentation Date Start Date Code Code System Note Provider Name and Address Organization Details Recorded Time 18671 terbutali ne medicatio n anaphylax is Not available Not available 01/27/20252021 92473 RxNorm Karina Burroughs [facility] 16:19:27 69322 amoxicill in medicatio n Not available Not available Not available 09/10/2025 723 RxNorm Not Available gene - External Data Service - prod 16:39:37 32849 terbinafi ne medicatio n anaphylax is Not available [facility] 09/10/20252024 20684 RxNorm Not Available gene - External Data [...] Prescrib ed Elsewher e: Yes Loca tion: [facility] odify By: prabhjot Lee r DateTime : [...] n (supplie d by office) insert lot [id number] Exp 01/2026 Not Available Not Available Not Available 28 mg iron-800 mcg tablet 07/05 completed Prescrib ed Elsewher e: Yes Loca tion: [facility] odify By: prabhjot Lee r DateTime : 01/14/20 10:45:00 AM Not Available Not Available Not Available lidocaine 5 % topical ointment APPLY OINTMENT EXTERNAL LY TO RIBS THREE TIMES DAILY NEEDED 01/14 completed Not Available Not Available 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 07/05/2021 09:06:21 If You Are , What Was Your Level Of Alcohol Consumption Prior To ? Occasional [email or web address] Information not available 03/31/2025 Are You Blind Or Do You Have Difficulty Seeing? No [email or web address] Information not available 07/05/2021 What Is Your Level Of Caffeine Consumption? Heavy [email or web address] Information not available 07/05/2021 In The 14 Days Before Symptom Onset, Have You Had Close Contact With A Laboratory-confir med COVID-19 While That Case Was Ill? No [email or web address] Information not available 07/05/2021 In The 14 Days Before Symptom Onset, Have You Had Close Contact With A Person Who Is Under Investigation For COVID-19 While That Person Was Ill? No [email or web address] Information not available 07/05/2021 Have You Been To An Area Known To Be High Risk For COVID-19? No [email or web address] Information not available 07/05/2021 Are You Deaf Or Do You Have Serious Difficulty Hearing? No [email or web address] Information not available 07/05/2021 What Type Of Diet Are You Following? REGULAR [email or web address] Information not available 07/05/2021 Which Illicit Or Recreational Drugs Have You Used? Marijuana Information not available 07/05/2021 Have You Ever Been Counseled For Unhealthy Alcohol Use? No [email or web address] Information not available 07/05/2021 Do You Use Your Seat Belt Or Car Seat Routinely? Yes Information not available 07/05/2021 Do You Have Smoke And Carbon Monoxide Detectors In Your Home? Yes [email or web address] Information not available 07/05/2021 Do You Use Sunscreen Routinely? Yes [email or web address] Information not available 07/05/2021 Has Tobacco Cessation Counseling Been Provided? No [email or web address] Information not available 07/05/2021 Have You Used IV Drugs? No [email or web address] Information not available 07/05/2021 Do You Have Difficulty Walking Or Climbing Stairs? No [email or web address] Information not available 12/06/2021 Sex: Unknown Functional Status Question Answer Note LastModified by Organizat ion Details LastModified Time Do you use any illicit or recreational drugs? Yes Information not available 07/05/2021 Do you or have you ever used any other forms of tobacco or nicotine? Yes [email or web address] Information not available 07/05/2021 What is your level of alcohol consumption? None [email or web address] Information not available 03/31/2025 Do you or have you ever used smokeless tobacco? Never used smokeless tobacco [email or web address] Information not available 07/05/2021 Are you able to walk independently without assistance or assistive devices? YESWOREST [email or web address] Information not available 07/05/2021 Are you able to care for yourself independently? Yes [email or web address] Information not available 12/06/2021 Do you have difficulty dressing, bathing, grooming, or toileting? No Information not available 12/06/2021 Do you or have you ever used e-cigarettes or vape? Current user of electronic cigarettes [email or web address] Information not available 07/05/2021 What is your exercise level? Occasional [email or web address] Information not available 07/05/2021 Mental Status Question Answer Note LastModified by Organization D etails LastModified Time Do you feel stressed (tense, restless, nervous, or anxious, or unable to sleep at night)? KL48841-5 [email or web address] Information not available 07/05/2021 Family History Relationship Description Onset Age of this Age Resolved Age Notes LastModified by Organization Details LastModified Time Father No current problems or disability [email or web address] Not available 05/2021 09:06:31 Mother No current problems or disability [email or web address] Not available 05/2021 09:06:31 Medical History Condition [...] ICD10 Code Diagnosis IMO Codes Diagnosis Note [id number] Shawn Bradley MD [place] [address],[place] [address] 08/18/2025 09:40:51 08/18/2025 10:15:47 Gestational diabetes mellitus 66511165 O24.414 Z3A.36 55672808 [id number] [facility] [address],[place] [address] 08/18/2025 09:41:06 08/18/2025 11:24:04 Gestation period, 36 weeks 67959683 Z3A.36 5910314 cont pnv [id number] [facility] [address],[place] [address] 08/18/2025 09:41:16 08/18/2025 16:17:31 Gestational diabetes mellitus class A2 72724742 O24.414 99635885 [id number] Shawn Bradley MD [place] [address],[place] [address] 08/25/2025 14:26:29 08/25/2025 15:14:02 Gestational diabetes mellitus 26765567 O24.414 21959062 [id number] [facility] [address],[place] [address] 08/25/2025 14:26:57 08/25/2025 15:53:52 Gestation period, 37 weeks 66059955 Z3A.37 4055876 continue vitamin [id number] [facility] [address],[place] [address] 08/25/2025 16:48:00 08/25/2025 17:20:42 Gestational diabetes mellitus 46437805 O24.419 26594562 [id number] Shawn Bradley MD [place] [address],[place] [address] 09/13/2025 15:30:32 09/13/2025 20:43:16 Health Concerns Section Related Observation LastModified by Organization Detai ls LastModified Time None Recorded Concern Status LastModified by Organization Details LastModified Time None Recorded Payers Encounter Date Sequence Insurance Name Policy Number Policy Roberts Covered Member ID Roberts Member ID Guarantor Name 09/13/2025 1 [facility] (MEDICAID HMO) [id number] Yuni Mejia [id number] Yuni Mejia OBGyn Episode Ob Episode Information Episode Created Date Number of Fetuses Patient Bloodtype Patient rh Status Prepregnancy Weight lbs Domestic Partner Domestic Partner Phone Father Name 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 Status 03/02/20 25 1 B Positive 164 CLOSED Fetus Data First Name Last Name Admitted to NICU Weight (g) Sex Living Outcome Pediatric Complications Fetus ID Race Codes Race Delivery Type Ziah false 4025.62 9 F true Full Term 67797 Vaginal Delivery Problems Problem Notes SDH form completed 5GI consult Tachycardia Holter monitor 72 order- pt sent back on 03-27-25 Cardiology referral faxed per Dr Martínez office calling pt 04/21 to schedule consult scheduled 05/11 11:15AM Problem Name Start Date End Date Resolution Snomed Code Not e Uncomplicated moderate persistent asthma 03/02/2025 425684157 albuterol prn Abnormal placenta affecting management of mother 05/04/2025 42885596 [facility] serial grow th us Iron deficiency anemia [facility]25[facility]20[facility] [place] [facility] x1 HGB 10.6 Nausea and vomiting 03/02/2025 66048898 Anxiety 03/02/2025 67862758 sertralin e started 03/02/25 changed to prozac 10 on Gestational diabetes mellitus 07/08/2025 33349568 checking bs QID - ruled in GDM Referral faxed to [facility] 07/07 Frequent headache 05/03/2025 [id number] [place] to [facility] 05/21, discharge 05/23 MFM referral faxed 05/24 [facility] Neurology consult pending per KAJAL Pittman [facility]- [facility] unable to see pt due to insurance 05/25[facility] 07/05/25 Level US & Consult (see MFM consult zayas recommendations ) regimen prn Imitrex 50mg for acute migraine, vitamin B2 (Riboflavin) 400mg, Coenzyme q10 300mg and magnesium oxide 200 to 600mg daily. minimize use of Excedrin or Tylenol to no more than 2-3 times a week. 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/2025 0637016 32wk growth us Jun Calculation Initial Jun [...] Weight in lbs Pre/Post Dialysis Refused Weight 158.227656853731 BP Diastolic BP Location Tested BP Systolic [...] Weight in lbs Pre/Post Dialysis Refused Weight 158.636954108178 BP Diastolic BP Location Tested BP Systolic [...] Weight in lbs Pre/Post Dialysis Refused Weight 162.582732955381 BP Diastolic BP Location Tested BP Systolic [...] Type Weight in lbs Pre/Post Dialysis Refused 168.548515529767 BP Diastolic BP Location Tested BP Systolic [...] Type Weight in lbs Pre/Post Dialysis Refused 169.183732568739 BP Diastolic BP Location Tested BP Systolic [...] Weight in lbs Pre/Post Dialysis Refused Weight 175.447210924067 BP Diastolic BP Location Tested BP Systolic [...] Weight in lbs Pre/Post Dialysis Refused Weight 182.309436098799 BP Diastolic BP Location Tested BP Systolic [...] Weight in lbs Pre/Post Dialysis Refused Weight 181.199824516906 BP Diastolic BP Location Tested BP Systolic BP Type 73 L arm 131 sitting Fetus Heart Rate Present Fetus Movement A Yes Comments viral URI testied neg at urg ent care, nausea resolved, efw 68%, +FM plan education and precautions f/u 2 weeks diagnosed GDM, plan trouble operator, gave list reviewed protein vs carb Flowsheet Date 07/21/2025 Gibson Score Blood Edema Fundus Height Fundus Units Glucose Ketones Leukocytes Nitrite Labor Signs Protein Cervic Dilation Cervic Effacement Cervic Station Type Weight in lbs Pre/Post Dialysis Refused Weight 181.088291208322 BP Diastolic BP Location Tested BP Systolic BP Type 78 L arm 127 sitting Fetus Heart Rate Present A 150 Fetus Movement A Yes Comments rpt urine culture +FM review ed blood sugars, meets with trouble operator today, precautions and education f/u 2 [...] Weight in lbs Pre/Post Dialysis Refused Weight 181.672604269215 BP Diastolic BP Location Tested BP Systolic [...] Weight in lbs Pre/Post Dialysis Refused Weight 183.469538817033 BP Diastolic BP Location Tested BP Systolic [...] Type Weight in lbs Pre/Post Dialysis Refused 184.202706743021 BP Diastolic BP Location Tested BP Systolic [...] Type Weight in lbs Pre/Post Dialysis Refused 184.658581242845 BP Diastolic BP Location Tested BP Systolic [...] Type Weight in lbs Pre/Post Dialysis Refused 184.388996507449 BP Diastolic BP Location Tested BP Systolic [...] Weight in lbs Pre/Post Dialysis Refused Weight 184.618877725030 BP Diastolic BP Location Tested BP Systolic [...] Weight in lbs Pre/Post Dialysis Refused Weight 164.298009847103 BP Diastolic BP Location Tested BP Systolic [...]
--- OUTSIDE RECORDS SUMMARY | 2025-10-27 12:12 | XMS_ITS ---
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 Name Role Phone SHAYNA CRESPO Attending Unavailable [...] if indicated - Collect Date/Time: 09/24/2023 11:29 [facility] ID: [id number] [place] [address], [phone] LOINC: 50537-1 Test Value Unit Reference Range Code Code System Flag UR SOURCE CLEAN CATCH 79867-6 LOINC COLOR YELLOW YELLOW 5778-6 LOINC CLARITY SL CLOUDY CLEAR 28554-1 LOINC SPEC GRAVITY 1.025 1.000-1.030 5811-5 LOINC PH 6.0 5.0 - 6.5 5803-2 LOINC LEUK EST NEGATIVE NEGATIVE 5799-2 LOINC NITRATE NEGATIVE NEGATIVE PROTEIN TRACE NEGATIVE 5804-0 LOINC GLUCOSE NEGATIVE NEGATIVE 39095-2 LOINC KETONES 1+ NEGATIVE 05600-6 LOINC A UROBILINOGEN 0.2 NEGATIVE 5818-0 LOINC BILIRUBIN NEGATIVE NEGATIVE 80526-0 LOINC BLOOD NEGATIVE NEGATIVE 34516-2 LOINC WBC 0-2 0 - 2 78655-8 LOINC RBC 0-2 0 - 2 69956-5 LOINC EPITHELIAL MODERATE RARE-FEW 52615-9 LOINC A BACTERIA 1+ NONE SEEN 89789-3 LOINC MUCUS 2+ NONE SEEN 8247-9 LOINC A YEAST NOT PRESENT NOT PRESENT 73927-0 LOINC CASTS NONE SEEN 96277-2 LOINC CRYSTALS NONE SEEN 46189-7 LOINC CULTURE? NO 8251-1 LOINC DIAGNOSIS N/A CBC W/ DIFF - Collect Date/T randall: 09/24/2023 10:23 [facility] ID: [id number] [place] [address], [phone] LOINC: 38835-0 Test Value Unit Reference Range Code Code System Flag WBC 8.5 10^3uL L=4.8 H=10.8 RBC 3.68 10^6uL L=4.20 H=5.40 L HEMOGLOBIN 10.3 g/dL L=12.0 H=16.0 718-7 LOINC L HEMATOCRIT 30.6 VOL% L=37.0 H=47.0 4544-3 LOINC L MCV 83.2 fL L=81.0 H=99.0 MCH 28.0 pg L=27.0 H=32.0 MCHC 33.7 g/dL L=32.0 H=36.0 PLATELETS 276 10^3uL L=100 H=400 24860-8 LOINC RDW 11.9 % L=11.7 H=15.5 %GRAN 71.4 % L=40.0 H=70.0 57614-4 LOINC H %LYMPH 19.1 % L=20.0 H=45.0 736-9 LOINC L %MONO 8.3 % L=2.0 H=10.0 91757-4 LOINC %EOS 0.6 % L=0.0 H=6.0 713-8 LOINC %BASO 0.1 % L=0.0 H=3.0 706-2 LOINC #NEUT 6.1 10^3uL L=1.9 H=7.6 75548-7 LOINC #LYMPH 1.6 10^3uL L=0.9 H=4.9 04751-9 LOINC #MONO 0.7 10^3uL L=0.1 H=0.9 51488-7 LOINC #EOS 0.1 10^3uL L=0.0 H=0.6 712-0 LOINC #BASO 0.01 10^3uL L=0.00 H=0.10 30440-0 LOINC #IM GRANS 0.0 10^3uL L=0.0 H=7.0 47366-9 LOINC %IM GRANS 0.5 % L=0.0 H=5.0 28714-4 LOINC %NRB 0.0 L=0.0 H=0.2 34611-7 LOINC #NRB 0.000 L=0.000 H=0.012 60155-5 LOINC MANUAL DIFF NOT INDICATED RBC MORPH NOT INDICATED COMPREHENSIVE METABOLIC PANE L - Collect Date/Time: 09/24/2023 10:23 [facility] ID: [id number] [place] [place], [id number] LOINC: 88342-6 Test Value Unit Reference Range Code Code [...] 2028-9 LOINC ANION GAP 8 L=10 H=20 41678-1 LOINC L OSMOLALITY 278 mOs/kG L=280 H=296 61132-2 LOINC L BUN/CREAT 18.0 3097-3 LOINC CALCIUM 8.6 mg/dL L=8.3 H=10.5 00165-3 LOINC AST 23 U/L L=15 H=46 1920-8 LOINC ALT 22 U/L L=9 H=72 1742-6 LOINC ALKALINE PHOS 61 U/L L=38 H=126 6768-6 LOINC TOTAL BILI 0.3 mg/dL L=0.2 H=1.3 1975-2 LOINC ALBUMIN 3.9 G/dL L=3.5 H=5.0 1751-7 LOINC TOTAL PROTEIN 6.9 g/L L=6.3 H=8.2 2885-2 LOINC A/G RATIO 1.3 40616-0 LOINC AGE 23 21004-4 LOINC eGFR NON-AFR 161 ml/min eGFR AFR AMER 195 ml/min MAGNESIUM - Collect Date/Patricio e: 09/24/2023 10:23 [facility] ID: [id number] [place] [place], [id number] LOINC: 73724-8 Test Value Unit Reference Range Code Code System Flag MAGNESIUM 1.7 mg/dL L=1.6 H=2.3 94069-1 LOINC HIV 4th GEN Ab 1&2 p24 Ag in -house - Collect Date/Time: 09/24/2023 10:23 [facility] ID: [id number], [place], [id number] LOINC: 64680-0 Test Value Unit Reference Range Code Code System Flag HIV-1 Ab NEGATIVE NORMAL: NON REACTIVE/NE HIV-2 Ab NEGATIVE HIV-p24 Ag NEGATIVE SEND TO [facility]? NO REFLEX? 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
--- OUTSIDE RECORDS SUMMARY | 2025-10-27 12:12 | XMS_ITS | Continuity of Care Document ---
Author Organization [facility], [facility] Address [address] [place] [address] Care Team Providers Care Stone Sawyer Name Role Phone SEAN CARLOS Primary Care Provider Assessment No assessment recorded. Plan of Treatment Reminders Order Date Submit Date Provider Last Modified By Organization Details Last Modified Time Details Appointments None recorded. Lab culture, aerobic + anaerobic 2024 025 [facility] (Lab), [address], [place], [address], 12:16:51 Referral None recorded. Procedures None recorded. Surgeries None recorded. Imaging None recorded. Medication Orders None recorded. Patient TargetsNo targets recorded. Patient InstructionsNo instructions recorded. Reason for Referral None Reported. Results Created Date Observation Date Name Description Value Unit Range Abnormal Flag Note LastModifiedBy Organization Detail LastModifiedTime 03/06/2003/06/2025 [UNIT Y] ANEUP LOIDY NIPT fraction 5.7% normal Not Available [facility] [address], [place], [address], 03/06/2025 03:58:26 03/06/20 25 03/06/2025 [UNIT Y] ANEUP LOIDY NIPT sex chromosome aneuploidy NOT DETECT ED normal Not Available [facility] [address], [place], [address], 03/06/2025 03:58:26 03/06/20 25 03/06/2025 [UNIT Y] ANEUP LOIDY NIPT monosomy X LOW RISK <1 in 10,000 normal Not Available [facility] [address], [place], [address], 03/06/2025 03:58:26 03/06/20 25 03/06/2025 [UNIT Y] ANEUP LOIDY NIPT trisomy 13 LOW RISK <1 in 10,000 normal Not Available [facility] [address], [place], [address], 03/06/2025 03:58:26 03/06/20 25 03/06/2025 [UNIT Y] ANEUP LOIDY NIPT trisomy 18 LOW RISK <1 in 10,000 normal Not Available [facility] [address], [place], [address], 03/06/2025 03:58:26 03/06/20 25 03/06/2025 [UNIT Y] ANEUP LOIDY NIPT trisomy 21 LOW RISK <1 in 10,000 normal Not Available [facility] [address], [place], [address], 03/06/2025 03:58:26 03/06/20 25 03/06/2025 [UNIT Y] ANEUP LOIDY NIPT sex FEMALE normal Not Available [facility] [address], [place], [address], 03/06/2025 03:58:26 03/06/20 25 03/06/2025 [UNIT Y] ANEUP LOIDY NIPT gestation SINGLE TON normal Not Available [facility] [address], [place], [address], 03/06/2025 03:58:26 03/06/20 25 03/06/2025 [UNIT Y] ANEUP LOIDY NIPT for detailed report, see pdf See PDF normal Not Available [facility] [address], [place], [address], 03/06/2025 03:58:26 03/02/20 25 03/02/2025 CULTU RE: URINE result report SEE RESULT S BELOW Test: Cultu re: Urine Speci men Sourc e: Urine - Clean Catch Speci men Type: Urine Speci men Date: 025 1455 Resul t Date: 025 2138 Resul t Statu s: Final resul t Abnor mal: No Resul ting Lab: [facility] [address] [facility] [address] Tel: CULTU RE ----- ----- ----- --- No growt h in 1 day (dete ction level of 10,00 0 colon ies / ml.) Not Available [facility] (Lab) [address], [place], [address], 03/03/2025 22:42:27 03/12/2003/12/2025 CULTU RE: URINE result report SEE RESULT S BELOW Test: Cultu re: Urine Speci men Sourc e: Urine - Clean Catch Speci men Type: Urine Speci men Date: 2024 1600 Resul t Date: 2024 0610 Resul t Statu s: Final resul t Abnor mal: No Resul ting Lab: [facility] [address] [facility] [address] Tel: CULTU RE ----- ----- ----- --- No growt h in 1 day (dete ction level of 10,00 0 colon ies / ml.) Not Available [facility] (Lab) [address], [place], [address], 03/14/2025 07:15:03 03/12/2003/12/2025 urina lysis , dipst ick Leukocytes ++ Not Available [address], [place], [address], 03/12/2025 16:45:06 05/16/20 25 03/12/2025 urina lysis , dipst ick Protein + Not Available [facility] [address], [place], [address], 03/12/2025 16:45:06 03/12/20 25 03/12/2025 urina lysis , dipst ick pH 5 Not Available [facility] [address], [place], [address], 03/12/2025 16:45:06 03/12/20 25 03/12/2025 urina lysis , dipst ick Blood trace Not Available [facility] [address], [place], [address], 03/12/2025 16:45:06 03/12/20 25 03/12/2025 urina lysis , dipst ick Specific Carson 1.015 Not Available [facility] [address], [place], [address], 03/12/2025 16:45:06 03/12/20 25 03/12/2025 urina lysis , dipst ick Ketone +++ Not Available [facility] [address], [place], [address], 03/12/2025 16:45:06 03/31/20 25 03/31/2025 TSH, REFLE X FREE T4 TSH 0.42 uIU/m L 0.30-5 .33 Not Available [facility] (Lab) [address], [place], [address], 04/01/2025 03:05:12 03/31/20 25 03/31/2025 CULTU RE: URINE result report SEE RESULT S BELOW Test: Cultu re: Urine Speci men Sourc e: Urine Voide d Speci men Type: Urine Speci men Date: 1710 Resul t Date: 2256 Resul t Statu s: Final resul t Abnor mal: No Resul ting Lab: [facility] [address] [facility] [address] Tel: CULTU RE ----- ----- ----- --- Cultu re resul t (>=3 organ isms prese nt) indic ates possi ble conta minat ion. Repea t cultu re if sympt oms indic ate. Not Available [facility] (Lab) [address], [place], [address], 04/01/2025 23:59:19 03/31/20 25 03/31/2025 urina lysis , dipst ick Leukocytes +1 Not Available [facility] [address], [place], [address], 03/31/2025 09:23:13 03/31/20 25 03/31/2025 urina lysis , dipst ick Nitrite normal Not Available [facility] [address], [place], [address], 03/31/2025 09:23:13 03/31/20 25 03/31/2025 urina lysis , dipst ick Urobilinogen normal Not Available [facility] [address], [place], [address], 03/31/2025 09:23:13 03/31/20 25 03/31/2025 urina lysis , dipst ick Protein trace Not Available [facility] [address], [place], [address], 03/31/2025 09:23:13 03/31/20 25 03/31/2025 urina lysis , dipst ick pH 5 Not Available [facility] [address], [place], [address], 03/31/2025 09:23:13 03/31/20 25 03/31/2025 urina lysis , dipst ick Specific Carson 1.020 Not Available [facility] [address], [place], [address], 03/31/2025 09:23:13 03/31/20 25 03/31/2025 urina lysis , dipst ick Ketone normal Not Available [facility] [address], [place], [address], 03/31/2025 09:23:13 03/31/20 25 03/31/2025 urina lysis , dipst ick Bilirubin normal Not Available [facility] [address], [place], [address], 03/31/2025 09:23:13 03/31/20 25 03/31/2025 urina lysis , dipst ick Glucose normal Not Available [facility] [address], [place], [address], 03/31/2025 09:23:13 03/31/20 25 03/31/2025 urina lysis , dipst ick Appearance normal Not Available [facility] [address], [place], [address], 03/31/2025 09:23:13 03/31/20 25 03/31/2025 urina lysis , dipst ick Color normal Not Available [facility] [address], [place], [address], 03/31/2025 09:23:13 04/01/20 25 04/01/2025 [facility], DENIS bacterial vaginosis (bv), tma Negati ve negati ve Not Available [facility] (Lab) [address] [place], [address], 04/02/2025 14:08:45 04/01/20 25 04/01/2025 [facility], DENIS mekhi species, tma Negati ve negati ve Not Available [facility] (Lab) [address] [place], [address], 04/02/2025 14:08:45 04/01/20 25 04/01/2025 [facility]OMEN [facility] SWAB PLUS, DENIS mekhi glabrata, tma Negati ve negati ve Not Available [facility] (Lab) [address], [place], [address], 04/02/2025 14:08:45 04/01/20 25 04/01/2025 [facility]OMEN '[facility] HE[facility] H SWAB PLUS, DENIS trichomonas vaginalis, tma Negati ve negati ve Not Available [facility] (Lab) [address], [place], [address], 04/02/2025 14:08:45 04/01/20 25 04/01/2025 [facility] SW[facility], DENIS chlamydia trachomatis, PCR Negati ve negati ve Not Available [facility] (Lab) [address] [place], [address], 04/02/2025 14:08:45 04/01/2004/01/2025 [facility], DENIS neisseria [...] ded in this panel . Not Available [facility] (Lab) [address] [place], [address], 04/02/2025 14:08:45 04/22/20 25 04/22/2025 CULTU RE: URINE result report SEE RESULT S BELOW Test: Cultu re: Urine Speci men Sourc e: Urine Voide d Speci men Type: Urine Speci men Date: 2024 1314 Resul t Date: 2024 0322 Resul t Statu s: Final resul t Abnor mal: No Resul ting Lab: [facility] [address] [facility] [address] Tel: CULTU RE ----- ----- ----- --- No growt h in 1 day (dete ction level of 10,00 0 colon ies / ml.) Not Available [facility] (Lab) [address], [place], [address], 04/24/2025 04:28:01 04/22/20 25 04/22/2025 urina lysis , dipst ick Leukocytes + Not Available [facility] [address], [place], [address], 04/22/2025 10:01:51 04/22/20 25 04/22/2025 urina lysis , dipst ick Protein + Not Available [facility] [address], [place], [address], 04/22/2025 10:01:51 04/22/20 25 04/22/2025 urina lysis , dipst ick pH 8 Not Available [facility] [address], [place], [address], 04/22/2025 10:01:51 04/22/20 25 04/22/2025 urina lysis , dipst ick Blood + Not Available [facility] [address], [place], [address], 04/22/2025 10:01:51 04/22/20 25 04/22/2025 urina lysis , dipst ick Specific Carson 1.010 Not Available [facility] [address], [place], [address], 04/22/2025 10:01:51 04/22/20 25 04/22/2025 urina lysis , dipst ick Ketone + Not Available [place] [address], [place], [address], 04/22/2025 10:01:51 06/23/20 25 06/23/2025 HEMAT OCRIT (HCT) HCT 35.6 % (based on docume nted legal sex) 34.0-4 5.0 Not Available [facility] (Lab) [address], [place], [address], 06/24/2025 11:45:32 06/23/20 25 06/23/2025 HEMOG LOBIN (HGB) HGB 11.1 g/dL (based on docume nted legal sex) 11.6-1 5.4 low Not Available [facility] (Lab) [address], [place], [address], 06/24/2025 11:45:32 06/23/20 25 06/23/2025 GTT - GESTA ROLAND L SCREE N, ACOG OB glucose, 1 hour screen 180 mg/dL 70-135 high Not Available [facility] (Lab) [address], [place], [address], 06/24/2025 11:45:33 06/23/20 25 06/23/2025 HIV 1/2 ANTIG EN/AN TIBOD Y, REFLE X CONFI RMATI ON HIV antigen/anti body Nonrea ctive nonrea ctive HIV-1 antig en and HIV-1 /HIV- 2 antib odies were not detec greg. No labor atory evide nce of HIV infec tion. Not Available [facility] (Lab) [address], [place], [address], 06/24/2025 11:45:33 06/23/20 25 06/23/2025 RPR SCREE N, REFLE X TITER /CONF IRMAT ION RPR qualitative Nonrea ctive nonrea ctive Not Available [facility] (Lab) [address], [place], [address], 06/24/2025 11:45:34 07/21/20 25 07/21/2025 CULTU RE: URINE result report SEE RESULT S BELOW Test: Cultu re: Urine Speci men Sourc e: Urine - Clean Catch Speci men Type: Urine Speci men Date: 2024 1024 Resul t Date: 2024 0252 Resul t Statu s: Final resul t Abnor mal: No Resul ting Lab: [facility] [address] [facility] [address] Tel: CULTU RE ----- ----- ----- --- No growt h in 1 day (dete ction level of 10,00 0 colon ies / ml.) Not Available [facility] (Lab) [address], [place], [address], 07/23/2025 03:57:01 07/21/2007/21/2025 urina lysis , dipst ick Leukocytes ++ Not Available [address], [place], [address], 07/21/2025 11:03:04 07/21/20 25 07/21/2025 urina lysis , dipst ick Nitrite neg Not Available [address], [place], [address], 07/21/2025 11:03:04 07/21/20 25 07/21/2025 urina lysis , dipst ick Urobilinogen neg Not Available [facility] [address], [place], [address], 07/21/2025 11:03:04 07/21/20 25 07/21/2025 urina lysis , dipst ick Protein + Not Available [facility] [address], [place], [address], 07/21/2025 11:03:04 07/21/20 25 07/21/2025 urina lysis , dipst ick pH 5 Not Available [facility] [address], [place], [address], 07/21/2025 11:03:04 07/21/20 25 07/21/2025 urina lysis , dipst ick Specific Carson 1.030 Not Available [facility] [address], [place], [address], 07/21/2025 11:03:04 07/21/20 25 07/21/2025 urina lysis , dipst ick Ketone +++ Not Available [facility] [address], [place], [address], 07/21/2025 11:03:04 07/21/20 25 07/21/2025 urina lysis , dipst ick Bilirubin neg Not Available [facility] [address], [place], [address], 07/21/2025 11:03:04 07/21/20 25 07/21/2025 urina lysis , dipst ick Glucose neg Not Available [facility] [address], [place], [address], 07/21/2025 11:03:04 07/21/20 25 07/21/2025 urina lysis , dipst ick Appearance cloudy Not Available [address], [place], [address], 07/21/2025 11:03:04 07/21/20 25 07/21/2025 urina lysis , dipst ick Color dark Not Available [facility] [address], [place], [address], 07/21/2025 11:03:04 08/04/20 25 08/04/2025 CMP(C OMPRE HENSI VE METAB OLIC PANEL ) sodium 138 mmol/ L 133-14 6 Not Available [facility] (Lab) [address], [place], [address], 08/05/2025 13:39:18 08/04/20 25 08/04/2025 CMP(C OMPRE HENSI VE METAB OLIC PANEL ) potassium 4.0 mmol/ L 3.5-5. 1 Not Available [facility] (Lab) [address], [place], [address], 08/05/2025 13:39:18 08/04/20 25 08/04/2025 CMP(C OMPRE HENSI VE METAB OLIC PANEL ) chloride 105 mmol/ L 98-107 Not Available [facility] (Lab) [address], [place], [address], 08/05/2025 13:39:18 08/04/20 25 08/04/2025 CMP(C OMPRE HENSI VE METAB OLIC PANEL ) carbon dioxide 25 mmol/ L 21-31 Not Available [facility] (Lab) [address], [place], [address], 08/05/2025 13:39:18 08/04/20 25 08/04/2025 CMP(C OMPRE HENSI VE METAB OLIC PANEL ) anion gap 8 mmol/ L 4-13 Not Available [facility] (Lab) [address], [place], [address], 08/05/2025 13:39:18 08/04/20 25 08/04/2025 CMP(C OMPRE HENSI VE METAB OLIC PANEL ) blood urea nitrogen 10 mg/dL 7-25 Not Available [facility] (Lab) [address], [place], [address], 08/05/2025 13:39:18 08/04/20 25 08/04/2025 CMP(C OMPRE HENSI VE METAB OLIC PANEL ) creatinine 0.41 mg/dL 0.60-1 .30 low Not Available [facility] (Lab) [address], [place], [address], 08/05/2025 13:39:18 08/04/20 25 08/04/2025 CMP(C OMPRE HENSI VE METAB OLIC PANEL ) egfrcr (CKD-epi 2020) >90 mL/mi n/1.7 3_m2 >=60 Not Available [facility] (Lab) [address], [place], [address], 08/05/2025 13:39:18 08/04/20 25 08/04/2025 CMP(C OMPRE HENSI VE METAB OLIC PANEL ) calcium 8.9 mg/dL 8.3-10 .5 Not Available [facility] (Lab) [address], [place], [address], 08/05/2025 13:39:18 08/04/20 25 08/04/2025 CMP(C OMPRE HENSI VE METAB OLIC PANEL ) glucose 116 mg/dL 70-100 high Not Available [facility] (Lab) [address], [place], [address], 08/05/2025 13:39:18 08/04/20 25 08/04/2025 CMP(C OMPRE HENSI VE METAB OLIC PANEL ) protein, total 6.1 g/dL 6.4-8. 3 low Not Available [facility] (Lab) [address], [place], [address], 08/05/2025 13:39:18 08/04/20 25 08/04/2025 CMP(C OMPRE HENSI VE METAB OLIC PANEL ) albumin 3.5 g/dL 3.5-5. 0 Not Available [facility] (Lab) [address], [place], [address], 08/05/2025 13:39:18 08/04/20 25 08/04/2025 CMP(C OMPRE HENSI VE METAB OLIC PANEL ) ALT 11 units /L 9-43 Not Available [facility] (Lab) [address], [place], [address], 08/05/2025 13:39:18 08/04/20 25 08/04/2025 CMP(C OMPRE HENSI VE METAB OLIC PANEL ) alkaline phosphatase 98 units /L 34-104 Not Available [facility] (Lab) [address], [place], [address], 08/05/2025 13:39:18 08/04/20 25 08/04/2025 CMP(C OMPRE HENSI VE METAB OLIC PANEL ) AST 15 units /L 13-39 Not Available [facility] (Lab) [address], [place], [address], 08/05/2025 13:39:18 08/04/20 25 08/04/2025 CMP(C OMPRE HENSI VE METAB OLIC PANEL ) bilirubin, total 0.3 mg/dL 0.2-1. 2 Not Available [facility] (Lab) [address], [place], [address], 08/05/2025 13:39:18 08/04/20 25 08/04/2025 BILE ACIDS , TOTAL bile acids, total 4 umol/ L 0-10 Test Perfo rmed by: [facility] [address] [address] Not Available [facility] (Lab) [address], [place], [address], 08/05/2025 13:39:19 03/02/20 25 03/02/2025 US, obste tric, nucha l trans lucen cy No observ ation record ed. [email or web address] [facility] [address], [place], [address], 03/02/2025 13:35:30 03/02/20 25 03/02/2025 US, obste tric, nucha l trans lucen cy No observ ation record ed. [email or web address] [address], [place], [address], 03/03/2025 14:08:39 03/08/20 25 03/08/2025 US, obste tric, 1st trime ster No observ ation record ed. [email or web address] [facility] [address], [place], [address], 03/08/2025 12:22:22 03/08/20 25 03/08/2025 US, obste tric, 1st trime ster No observ ation record ed. [email or web address] [address], [place], [address], 03/10/2025 15:03:13 04/01/20 25 03/24/2025 [email or web address] r monit or No observ ation record ed. [address], [address], 04/08/2025 12:36:45 04/01/20 25 03/22/2025 [email or web address] r monit or No observ ation record ed. [address] (Pulmonary) [address] [place] [address], [address], 04/06/2025 08:59:34 04/20/20 25 04/20/2025 US, obste tric, limit ed No observ ation record ed. [email or web address] [facility] [address], [place], [address], 04/20/2025 17:39:30 04/20/20 25 04/20/2025 US, obste tric, follo w-up No observ ation record ed. [email or web address] [address], [place], [address], 04/23/2025 08:32:54 04/28/20 25 04/28/2025 US, obste tric, 2nd or 3rd trime ster No observ ation record ed. [email or web address] [facility] [address], [place], [address], 04/28/2025 17:48:42 04/28/20 25 04/28/2025 US, obste tric, 2nd or 3rd trime ster No observ ation record ed. [email or web address] [address], [place], [address], 05/04/2025 22:16:11 05/07/20 25 05/07/2025 non-s tress test No observ ation record ed. [address], [place], [address], 05/28/2025 13:33:54 05/21/20 25 05/21/2025 CT, head + brain , w/o contr ast No observ ation record ed. [address], [place], [address], 05/24/2025 13:48:57 05/28/20 25 05/28/2025 US, obste tric, follo w-up No observ ation record ed. [email or web address] [facility] [address], [place], [address], 05/28/2025 17:32:34 05/28/20 25 05/28/2025 US, obste tric, follo w-up No observ ation record ed. [email or web address] [address], [place], [address], 06/01/2025 15:13:13 06/08/20 25 06/07/2025 US, obste tric, follo w-up No observ ation record ed. [email or web address] [facility] [address], [place], [address], 06/15/2025 10:53:46 07/07/20 25 07/07/2025 US, obste tric, follo w-up No observ ation record ed. [email or web address] [facility], [place], [address], 07/07/2025 13:18:01 07/07/20 25 07/07/2025 US, obste tric, follo w-up No observ ation record ed. [email or web address] [address], [place], [address], 07/07/2025 11:29:37 08/04/20 25 08/04/2025 US, obste tric, follo w-up No observ ation record ed. [email or web address] [facility], [place], [address], 08/04/2025 15:08:50 08/04/20 25 08/04/2025 US, obste tric, follo w-up No observ ation record ed. [email or web address] [address], [place], [address], 08/06/2025 10:41:50 08/11/20 25 08/11/2025 non-s tress test No observ ation record ed. [email or web address] [facility] [address], [place], [address], 08/11/2025 17:37:52 08/11/20 non-s tress test No observ ation record ed. [email or web address] [facility] [address], [place], [address], 08/11/2025 17:38:11 08/15/2008/15/2025 non-s tress test No observ ation record ed. [place] [id number], [place], [address], 08/21/2025 10:18:57 08/15/2008/15/2025 US, obste tric, bioph ysica l profi le No observ ation record ed. [address], [place], [address], 08/17/2025 10:50:53 08/18/2008/18/2025 US, obste tric, bioph ysica l profi le + non-s tress test No observ ation record ed. [email or web address] [facility] [address], [place], [address], 08/18/2025 10:21:39 08/18/2008/18/2025 US, obste tric, bioph ysica l profi le + non-s tress test No observ ation record ed. [email or web address] [address], [place], [address], 08/18/2025 10:35:44 08/18/2008/18/2025 non-s tress test No observ ation record ed. [email or web address] [facility] [address], [place], [address], 08/18/2025 17:34:03 08/18/20 non-s tress test No observ ation record ed. [email or web address] [facility] [address], [place], [address], 08/18/2025 16:06:09 08/25/2008/25/2025 US, obste tric, bioph ysica l profi le + non-s tress test No observ ation record ed. [email or web address] [facility], [place], [address], 08/25/2025 18:52:06 08/25/20 25 08/25/2025 US, obste tric, follo w-up No observ ation record ed. [email or web address] [address], [place], [address], 08/25/2025 15:47:28 08/25/20 25 08/25/2025 non-s tress test No observ ation record ed. [email or web address] [facility] [address], [place], [address], 08/25/2025 18:12:15 08/25/20 non-s tress test No observ ation record ed. [email or web address] [address], [place], [address], 08/25/2025 17:21:19 08/30/20 25 08/30/2025 non-s tress test No observ ation record ed. [address], [place], [address], 09/15/2025 15:26:49 09/01/20 25 09/01/2025 non-s tress test No observ ation record ed. [place] [id number] [facility] [address], [place], [address], 09/13/2025 11:32:22 09/01/20 25 09/01/2025 US, obste tric No observ ation record ed. [place] [id number] [facility] [address], [place], [address], 09/02/2025 15:56:01 09/01/20 25 09/01/2025 non-s tress test No observ ation record ed. [place] [id number] [facility] [address], [place], [address], 09/02/2025 14:32:38 09/16/20 25 09/16/2025 CT, angio gram, head + neck, w/ contr ast No observ ation record ed. [email or web address] [facility] [address], [place], [address], 09/16/2025 20:01:05 09/28/2009/28/2025 non-s tress test No observ ation record ed. [email or web address] [facility] [address], [place], [address], 10/04/2025 16:42:40 Result Notes None recorded. Problems Name Problem SNOMED Code Status Onset Date Resolution Date Notes Provider Name and Address Organization Details Recorded Time Hypereme sis [id number] Completed phenerga n now prn [place] ramos [facility] 2 16:43:51 Anxiety in pregnanc y [id number] 9109 Completed will continue to monitor Asia ramos [facility] 2 16:43:51 Past pregnanc y history of gestatio nal diabetes mellitus 021307092 Completed Early 1 hr GTT @ 20wks 11/03 APPT [facility] 2 16:43:51 Spinal muscular atrophy 8653483 Completed Carrier - Not in contact with FOB. Asia ramos [facility] 2 16:43:51 Anxiety 90303110 Completed prozac Karina ramos [facility] 4 11:00:46 Nausea 724188685 Completed d/c zofran pump 11/08 per pt request Karina ramos [facility] 4 11:00:46 Postpart um hemorrha ge [id number] Completed hx 2017 with d&c Karina ramos [facility] 4 11:00:46 Normal pregnanc y in multigra jessy 5902305646 86823 Completed 201907/05/2021 Encounte r for supervis ion of other normal pregnanc y, 3rd trimeste r;Record ed Elsewher e: No Locat ion: [facility] S ource: EHR Keyboarding Teacher yvrose: N Dennis ce ID: 0001 Gigi lable Time: 10:45:00 AM Karina ramos, [facility] 10:15:27 Gestatio n period, 37 weeks 67245722 Completed 201907/05/2021 37 weeks gestatio n of pregnanc y;Record ed Elsewher e: No Locat ion: [facility] S ource: EHR Keyboarding Teacher yvrose: N Dennis ce ID: 0001 Gigi lable Time: 09:00:00 AM Karina ramos, [facility] 10:15:[address] Concept Completed 201907/05/2021 Matern care for abnlt fetl hrt rate or rhym, 3rd tri, unsp;Rec orded Elsewher e: No Locat ion: [facility] S ource: EHR Keyboarding Teacher yvrose: N Dennis ce ID: 0001 Gigi lable Time: 08:45:00 AM Karina ramos, [facility] 10:15:29 Gestatio nal diabetes mellitus 99935258 Completed 201907/05/2021 Gestatio nal diabetes mellitus in pregnanc y, diet controll ed;Recor ded Elsewher e: No Locat ion: [facility] S ource: EHR Keyboarding Teacher yvrose: N Natalyati ce ID: 0001 Gigi lable Time: 11:45:00 AM Karina ramos [facility] 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 10:15:13 Amenorrh ea 97374834 Completed 202007/10/2021 Tammi Jones null, [facility] 13:08:35 Pregnanc y 80023091 Completed 202003/29/2022 Emma Dykes null, [facility] 12:28:48 Pregnanc y 58792892 Completed 202304/22/2024 Emma Dykes null, [facility] 12:28:48 Headache 86807123 Active 2023 Karina Burroughs null, [facility] 16:19:28 Pregnanc y 45071111 Completed 202309/14/2025 Emma Elkinsfredi null, [facility] 12:28:48 Uncompli cated moderate persiste nt asthma 419479801 Completed 2024 albutero l prn Shawn Bradley MD [address], [place], [address], [facility] 13:08:36 Anxiety 34812156 Completed 2024 sertrali ne started 03/02/25 changed to prozac 10 on Shawn Bradley MD [address], [place], [address], [facility] 5 17:05:48 Nausea and vomiting 10370950 Completed 2024 Shawn Bradley MD [address], [place], [address], [place] [facility] 5 13:20:27 Placenta circumva llata 9093532 Completed 2024 32wk [facility] 09:44:35 Frequent headache 411846267 Completed [address] [facility] 05/21, discharg e 05/23 MFM referral faxed 05/24 [facility] per KAJAL Pittman [facility]- [facility] unable to see [...] a week. [facility] 10:55:26 Abnormal placenta affectin g manageme nt of mother 95557802 Completed 2024 MCI serial growth [facility] 10:46:25 Iron deficien cy anemia 18918843 Completed 2024 SS MFM tx venofer 200mg x1 HGB 10.6 [facility] 15:21:25 Gestatio nal diabetes mellitus 12670336 Completed 2024 checking bs QID - ruled in GDM [facility]erral [facility] 14:36:52 Notes:Order faxed to [facility] access 08/10 for PICC line, and home health already caring for pt. Vladimir RDZ at [phone] Problem Notes None recorded. Procedures Surgical History Date Name Laterality Status Provider Name and Address Organization Details Recorded Time 025 SALPINGECTOMY, LAPAROSCOPIC (SURG) completed Not Available [facility] 09[facility] 11:19:17 025 Date of Last Pap Smear completed Karina Burroughs [facility] 01/28/2025 11:19:42 024 Nexplanon Removal completed Shawn Bradley MD [address], [place], [address], [facility] 08/05/2024 15:09:58 024 Control Implant Insertion completed Anju Mcnamara CNM [address], [place], [address], [facility] 05/08/2024 17:59:34 024 cholecystectomy completed Karina Burroughs [facility] 03/31/2025 09:18:57 018 Dilation and Curettage completed Karina Burroughs [facility] 07/05/2021 10:17:50 Imaging Results None recorded. Procedure Notes None recorded. Medical Equipment None Reported. Allergies Allergen ID Allergen Name Allergen Category Reaction Reaction Severity Criticality Documentation Date Start Date Code Code System Note Provider Name and Address Organization Details Recorded Time 97982 terbutali ne medicatio n anaphylax is Not available Not available 01/27/20252021 43880 RxNorm Karina ramos, [facility] 16:19:27 28691 amoxicill in medicatio n Not available Not available Not available 09/10/2025 723 RxNorm Not Available gene - External Data Service - prod 16:39:37 16956 terbinafi ne medicatio n anaphylax is Not available [facility] 09/10/20252024 93547 RxNorm Not Available [employer] Data Service - prod 16:40:54 Medications Name [...] Prescrib ed Elsewher e: Yes [facility] By: prabhjot Lee r DateTime [...] n (supplie d by office) insert lot [id number] Exp 01/2026 Not Available Not Available Not Available 28 mg iron-800 mcg tablet 07/05 completed Prescrib ed Elsewher e: Yes [facility] By: prabhjot Lee r DateTime : 01/14/20 10:45:00 AM Not Available Not Available Not Available lidocaine 5 % topical ointment APPLY OINTMENT EXTERNAL LY TO RIBS THREE TIMES DAILY NEEDED 01/14 completed Not Available Not Available Not Available DRY KILN WORKER-PNV-DH A 28 mg iron-1 mg-200 mg [...] and Address Organization Details Last Updated DateTime 10/15/2025 162.56 cm 27.1 kg/m2 62546.59 g 127/83 mm[Hg] Emma Dykes [facility] 10/15/2025 11:26:28 Social History Question Answer Notes LastModified by Organizat ion Details LastModified Time Tobacco Smoking Status Former Smoker Karina ramos, [facility] 07/05/2021 09:06:21 If You Are , What Was Your Level Of Alcohol Consumption Prior To ? Occasional [email or web address] Information not available 03/31/2025 Are You Blind Or Do You Have Difficulty Seeing? No [email or web address] Information not available 07/05/2021 What Is Your Level Of Caffeine Consumption? Heavy [email or web address] Information not available 07/05/2021 In The 14 Days Before Symptom Onset, Have You Had Close Contact With A Laboratory-confir med COVID-19 While That Case Was Ill? No [email or web address] Information not available 07/05/2021 In The 14 Days Before Symptom Onset, Have You Had Close Contact With A Person Who Is Under Investigation For COVID-19 While That Person Was Ill? No [email or web address] Information not available 07/05/2021 Have You Been To An Area Known To Be High Risk For COVID-19? No [email or web address] Information not available 07/05/2021 Are You Deaf Or Do You Have Serious Difficulty Hearing? No [email or web address] Information not available 07/05/2021 What Type Of Diet Are You Following? REGULAR [email or web address] Information not available 07/05/2021 Which Illicit Or Recreational Drugs Have You Used? Marijuana [email or web address] Information not available 07/05/2021 Have You Ever Been Counseled For Unhealthy Alcohol Use? No Information not available 07/05/2021 Do You Use Your Seat Belt Or Car Seat Routinely? Yes [email or web address] Information not available 07/05/2021 Do You Have Smoke And Carbon Monoxide Detectors In Your Home? Yes [email or web address] Information not available 07/05/2021 Do You Use Sunscreen Routinely? Yes [email or web address] Information not available 07/05/2021 Has Tobacco Cessation Counseling Been Provided? No [email or web address] Information not available 07/05/2021 Have You Used IV Drugs? No [email or web address] Information not available 07/05/2021 Do You Have Difficulty Walking Or Climbing Stairs? No [email or web address] Information not available 12/06/2021 Sex: Unknown Functional Status Question Answer Note LastModified by Organizat ion Details LastModified Time Do you use any illicit or recreational drugs? Yes [email or web address] Information not available 07/05/2021 Do you or have you ever used any other forms of tobacco or nicotine? Yes Information not available 07/05/2021 What is your level of alcohol consumption? None [email or web address] Information not available 03/31/2025 Do you or have you ever used smokeless tobacco? Never used smokeless tobacco Information not available 07/05/2021 Are you able to walk independently without assistance or assistive devices? YESWOREST Information not available 07/05/2021 Are you able to care for yourself independently? Yes [email or web address] Information not available 12/06/2021 Do you have difficulty dressing, bathing, grooming, or toileting? No [email or web address] Information not available 12/06/2021 Do you or have you ever used e-cigarettes or vape? Current user of electronic cigarettes inxrnndv95 Information not available 07/05/2021 What is your exercise level? Occasional [email or web address] Information not available 07/05/2021 Mental Status Question Answer Note LastModified by Organization D etails LastModified Time Do you feel stressed (tense, restless, nervous, or anxious, or unable to sleep at night)? [id number] [email or web address] Information not available 07/05/2021 Family History Relationship Description Onset Age of this Age Resolved Age Notes LastModified by Organization Details LastModified Time Father No current problems or disability Not available 05/2021 09:06:31 Mother No current problems or disability [email or web address] Not available 05/2021 09:06:31 Medical History Condition [...] ICD10 Code Diagnosis IMO Codes Diagnosis Note [id number] Shawn Bradley MD [facility] [address] [address] 09/20/2025 14:55:10 09/20/2025 15:43:32 Hypertension AND/OR vomiting complicating childbirth AND/OR puerperium 620405587 O13.9 80978915 Anxiety 94574646 F41.9 80400 25-year-ol d female with severe anxiety and [...] 20 minutes on her care in total. [id number] Shawn Bradley MD [facility] [address] [address] 09/29/2025 13:51:09 09/29/2025 14:54:36 care status 696301942 Z39.2 55790 This patient is a 25-year-ol d female [...] Her bleeding Has resolved at this time. [id number] Anju Mcnamara, [facility] [address] [address] 10/15/2025 11:10:29 10/15/2025 12:43:01 Discharge from breast 689144060 N64.52 28652 left breast culture obtained Anxiety 45093502 F41.9 06988 continue medsplan t bishop investigative assistant for further management Hypertensive disorder 38 367771 I10 72405996 ok to discontinu e procardia, take bp at home call with a log monitor symptoms Health Concerns Section Related Observation LastModified by Organization Detai ls LastModified Time None Recorded Concern Status LastModified by Organization Details LastModified Time None Recorded Payers Encounter Date Sequence Insurance Name Policy Number Policy Roberts Covered Member ID Roberts Member ID Guarantor Name 10/15/2025 1 [facility] (MEDICAID HMO) [id number] Yuni Mejia [id number] Yuni Mejia Notes Date Note Type Note Provider Name and Address Organization Details Recorded Time 10/15/2025 text/html ROS as noted in the HPI questions about delivery, anemia per pcp, did not hemorrhage at deliverytold high blood pressure, kirk told her d/c procardia because she wasn't feeling well and bps low at homepulse low 40-70 depending on activity, no symptomsalso worried about left nipple dichargeanxiety still the same, meds she is on makes her feel awful Emma ramos [facility] 10/15/2025 12:51:31 OBGyn Episode Ob Episode Information Episode Created Date Number of Fetuses Patient Bloodtype Patient rh Status Prepregnancy Weight lbs Domestic Partner Domestic Partner Phone Father Name Senior Director Marketing Status 03/02/20 25 1 B Positive 164 CLOSED Fetus Data First Name Last Name Admitted to NICU Weight (g) Sex Living Outcome Pediatric Complications Fetus ID Race Codes Race Delivery Type Gladis false 4025.62 9 F true Full Term 70259 Vaginal Delivery Problems Problem Notes SDH form completed 5GI consult Tachycardia Holter monitor 72 order- pt sent back on 03-27-25 Cardiology referral faxed per Dr Martínez office calling pt 04/21 to schedule consult scheduled 05/11 11:15AM Problem Name Start Date End Date Resolution Snomed Code Not e Uncomplicated moderate persistent asthma 03/02/2025 953582809 albuterol prn Abnormal placenta affecting management of mother 05/04/2025 38854374 MCI serial grow th us Iron deficiency anemia 05/25/2025 [id number] [facility] MFM tx [place] 200mg x1 HGB 10.6 Nausea and vomiting 03/02/2025 17899544 Anxiety 03/02/2025 98991442 sertralin e started 03/02/25 changed to prozac 10 on Gestational diabetes mellitus 07/08/2025 50354150 checking bs QID - ruled in GDM Referral faxed to [facility] 07/07 Frequent headache 05/03/2025 101058175 t [place] to [facility] 05/21, discharge 05/23 MF referral faxed 05/24 [facility] Neurology consult pending per KAJAL Pittman [facility]- [facility] unable to [facility] pt due to insurance 05/25[facility] 07/05/25 Level US & Consult (see [facility] consult zayas recommendations ) regimen prn Imitrex 50mg for acute migraine, vitamin B2 (Riboflavin) 400mg, Coenzyme q10 300mg and magnesium oxide 200 to 600mg daily. minimize use of Excedrin or Tylenol to no more than 2-3 times a week. 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/2025 4524230 32wk growth us Jun Calculation Initial Jun [...] Weight in lbs Pre/Post Dialysis Refused Weight 158.895797130648 BP Diastolic BP Location Tested BP Systolic [...] Weight in lbs Pre/Post Dialysis Refused Weight 158.807248790841 BP Diastolic BP Location Tested BP Systolic [...] Weight in lbs Pre/Post Dialysis Refused Weight 162.918014129580 BP Diastolic BP Location Tested BP Systolic BP Type 78 123 Fetus Heart Rate Present A 148 Fetus Movement A Yes Comments Patient is having having ronny n, cramping and vaginal discharge. went to ed exam done cultures and rx sent, ?FM, await alarm security or surveillance monitor results rfilled zofran, precautions and [...] Type Weight in lbs Pre/Post Dialysis Refused 168.811121585224 BP Diastolic BP Location Tested BP Systolic [...] Type Weight in lbs Pre/Post Dialysis Refused 169.444760896433 BP Diastolic BP Location Tested BP Systolic [...] Weight in lbs Pre/Post Dialysis Refused Weight 175.991836370886 BP Diastolic BP Location Tested BP Systolic [...] Weight in lbs Pre/Post Dialysis Refused Weight 182.893295074078 BP Diastolic BP Location Tested BP Systolic [...] Weight in lbs Pre/Post Dialysis Refused Weight 181.820502640390 BP Diastolic BP Location Tested BP Systolic BP Type 73 L arm 131 sitting Fetus Heart Rate Present Fetus Movement A Yes Comments viral URI testied neg at urg ent care, nausea resolved, efw 68%, +FM plan education and precautions f/u 2 weeks diagnosed GDM, plan hoist worker, gave list reviewed protein vs carb Flowsheet Date 07/21/2025 Gibson Score Blood Edema Fundus Height Fundus Units Glucose Ketones Leukocytes Nitrite Labor Signs Protein Cervic Dilation Cervic Effacement Cervic Station Type Weight in lbs Pre/Post Dialysis Refused Weight 181.455815221176 BP Diastolic BP Location Tested BP Systolic BP Type 78 L arm 127 sitting Fetus Heart Rate Present A 150 Fetus Movement A Yes Comments rpt urine culture +FM review ed blood sugars, meets with hoist worker today, precautions and education f/u 2 [...] Weight in lbs Pre/Post Dialysis Refused Weight 181.233046760329 BP Diastolic BP Location Tested BP Systolic [...] Weight in lbs Pre/Post Dialysis Refused Weight 183.014924816018 BP Diastolic BP Location Tested BP Systolic [...] Type Weight in lbs Pre/Post Dialysis Refused 184.809738693508 BP Diastolic BP Location Tested BP Systolic [...] Type Weight in lbs Pre/Post Dialysis Refused 184.200744792481 BP Diastolic BP Location Tested BP Systolic [...] Type Weight in lbs Pre/Post Dialysis Refused 184.545713195111 BP Diastolic BP Location Tested BP Systolic [...] Weight in lbs Pre/Post Dialysis Refused Weight 184.602926493001 BP Diastolic BP Location Tested BP Systolic [...] Weight in lbs Pre/Post Dialysis Refused Weight 164.637130938216 BP Diastolic BP Location Tested BP Systolic [...]
--- OUTSIDE RECORDS SUMMARY | 2025-10-27 12:12 | XMS_ITS ---
Author Organization Unknown Address [address] [place] [address] [phone] Phone Care Team Providers Care Assistant Broker Name Role Phone RUFUS SEGAL Attending Unavailable [...] em Smoking History Never smoker (Never Smoked) 016066212 SNOMED CT Sex Female Assessment You had [...] 6002 SNOMED-CT UNSPECIFIED ABDOMINAL PAIN active 215 44934 SNOMED-CT Allergies and Adverse Reactions Allergy Substance Reaction Severity Start Date Concern Status Co de Code System AMOXICILLIN Active 723 RxNorm TERBUTALINE Active 05221 RxNorm Plan of Treatment Stress Test Treadmill 01/21/2025 Cd Technician Consult 04/27/2025 Encounters Encounter Diagnosis Start [...]
--- OUTSIDE RECORDS SUMMARY | 2025-10-27 12:12 | XMS_ITS ---
Author Organization Unknown Address [address] [place] [address] [phone] Phone Care Team Providers Care Cattle Trader Name Role Phone DAVID ASHTON Attending Unavailable [...] em Smoking History Never smoker (Never Smoked) 766562630 SNOMED CT Sex Female Assessment You had [...] 6002 SNOMED-CT UNSPECIFIED ABDOMINAL PAIN active 215 37619 SNOMED-CT Allergies and Adverse Reactions Allergy Substance Reaction Severity Start Date Concern Status Co de Code System AMOXICILLIN Active 723 RxNorm TERBUTALINE Active 68474 RxNorm Plan of Treatment Stress Test Treadmill 01/21/2025 Associate Professor Of Church Music Consult 04/27/2025 Encounters Encounter Diagnosis Start Date [...]
--- OUTSIDE RECORDS SUMMARY | 2025-10-27 12:12 | XMS_ITS ---
Author Organization Unknown Address [address] [place] [address] [phone] Phone Care Team Providers Care Heating And Ventilating Worker Name Role Phone SHAYNA CRESPO Attending [...] if indicated - Collect Date/Time: 03/25/2024 01:05 [facility] ID: [id number] [address] [place] [address], [id number] LOINC: 11883-5 Test Value Unit Reference Range Code Code System Flag UR SOURCE CLEAN CATCH 90485-9 LOINC COLOR YELLOW YELLOW 5778-6 LOINC CLARITY SL CLOUDY CLEAR 73727-2 LOINC SPEC GRAVITY >=1.030 1.000-1.030 5811-5 LOINC A PH 5.5 5.0 - 6.5 5803-2 LOINC LEUK EST NEGATIVE NEGATIVE 5799-2 LOINC NITRATE NEGATIVE NEGATIVE PROTEIN NEGATIVE NEGATIVE 5804-0 LOINC GLUCOSE 3+ NEGATIVE 48189-1 LOINC KETONES TRACE NEGATIVE 66210-0 LOINC A UROBILINOGEN 0.2 NEGATIVE 5818-0 LOINC BILIRUBIN NEGATIVE NEGATIVE 17953-1 LOINC BLOOD NEGATIVE NEGATIVE 17151-7 LOINC WBC 2-5 0 - 2 50575-0 LOINC RBC 0-2 0 - 2 42377-2 LOINC EPITHELIAL MODERATE RARE-FEW 95672-8 LOINC A BACTERIA 1+ NONE SEEN 98121-3 LOINC MUCUS MODERATE NONE SEEN 8247-9 LOINC A YEAST NOT PRESENT NOT PRESENT 62073-1 LOINC CASTS NONE SEEN 65889-2 LOINC CRYSTALS NONE SEEN 44318-5 LOINC CULTURE? NO 8251-1 LOINC DIAGNOSIS N/A CBC W/ DIFF - Collect Date/T randall: 03/25/2024 00:13 [facility] ID: [id number] [address] [place] [address], [id number] LOINC: 20610-4 Test Value Unit Reference Range Code Code System Flag WBC 13.6 10^3uL L=4.8 H=10.8 H RBC 3.78 10^6uL L=4.20 H=5.40 L HEMOGLOBIN 10.1 g/dL L=12.0 H=16.0 718-7 LOINC L HEMATOCRIT 32.3 VOL% L=37.0 H=47.0 4544-3 LOINC L MCV 85.4 fL L=81.0 H=99.0 MCH 26.7 pg L=27.0 H=32.0 L MCHC 31.3 g/dL L=32.0 H=36.0 L PLATELETS 309 10^3uL L=100 H=400 49438-8 LOINC RDW 13.5 % L=11.7 H=15.5 %GRAN 63.2 % L=40.0 H=70.0 64989-3 LOINC %LYMPH 20.2 % L=20.0 H=45.0 736-9 LOINC %MONO 12.1 % L=2.0 H=10.0 36760-7 LOINC H %EOS 2.0 % L=0.0 H=6.0 713-8 LOINC %BASO 0.2 % L=0.0 H=3.0 706-2 LOINC #NEUT 8.6 10^3uL L=1.9 H=7.6 11103-1 LOINC H #LYMPH 2.8 10^3uL L=0.9 H=4.9 80275-1 LOINC #MONO 1.6 10^3uL L=0.1 H=0.9 10324-5 LOINC H #EOS 0.3 10^3uL L=0.0 H=0.6 712-0 LOINC #BASO 0.03 10^3uL L=0.00 H=0.10 54663-7 LOINC #IM GRANS 0.3 10^3uL L=0.0 H=7.0 35823-5 LOINC %IM GRANS 2.3 % L=0.0 H=5.0 89772-7 LOINC %NRB 0.0 L=0.0 H=0.2 48866-9 LOINC #NRB 0.000 L=0.000 H=0.012 46838-3 LOINC MANUAL DIFF NOT INDICATED RBC MORPH NOT INDICATED COMPREHENSIVE METABOLIC PANE L - Collect Date/Time: 03/25/2024 00:13 [facility] ID: [id number] [address] [place], [place], [id number] LOINC: 59453-9 Test Value Unit Reference Range Code Code [...] LOINC L ANION GAP 11 L=10 H=20 86506-1 LOINC OSMOLALITY 281 mOs/kG L=280 H=296 71012-7 LOINC BUN/CREAT 20.0 3097-3 LOINC CALCIUM 8.9 mg/dL L=8.3 H=10.5 14721-3 LOINC AST 31 U/L L=15 H=46 1920-8 LOINC ALT 25 U/L L=9 H=72 1742-6 LOINC ALKALINE PHOS 178 U/L L=38 H=126 6768-6 LOINC H TOTAL BILI 0.2 mg/dL L=0.2 H=1.3 1975-2 LOINC ALBUMIN 3.2 G/dL L=3.5 H=5.0 1751-7 LOINC L TOTAL PROTEIN 6.5 g/L L=6.3 H=8.2 2885-2 LOINC A/G RATIO 1.0 46511-2 LOINC AGE 24 32348-5 LOINC eGFR NON-AFR 160 ml/min eGFR AFR AMER 194 ml/min TROPONIN LEVEL - Collect Neil e/Time: 03/25/2024 00:13 [facility] ID: [id number] [address] [place], [place], [id number] LOINC: 01373-7 Test Value Unit Reference Range Code Code System Flag TROPONIN < 0.012 ng/mL L=0.000 H=0.033 65599-1 LOINC PROTIME - Collect Date/Time: 03/25/2024 00:13 [facility] ID: [id number] [address] [place], [place], [id number] LOINC: 59332-1 Test Value Unit Reference Range Code Code System Flag PT 9.6 Sec L=9.7 H=11.7 71080-4 LOINC L INR 0.9 Sec L=0.9 H=1.1 99881-4 LOINC PTT - Collect Date/Time: 00:13 [facility] ID: [id number] [place] [address], [phone] LOINC: 97322-9 Test Value Unit Reference Range Code Code System Flag PTT 26.3 Sec L=23.0 H=31.2 Social History Type Status Start Date End Date Code Code Syst em Smoking History Never smoker (Never Smoked) 778672561 SNOMED CT Sex Female Assessment You had [...] 6002 SNOMED-CT UNSPECIFIED ABDOMINAL PAIN active 215 02800 SNOMED-CT Allergies and Adverse Reactions Allergy Substance Reaction Severity Start Date Concern Status Co de Code System AMOXICILLIN Active 723 RxNorm TERBUTALINE Active 85509 RxNorm Plan of Treatment Stress Test Treadmill 01/21/2025 Clothing Supervisor Consult 04/27/2025 Encounters Encounter Diagnosis Start [...] ESTRADA PCP - Primary care physician 0 7-16 2024-09-12 Hong Abdi PCP - Primary care physician 2024-09-12
--- OUTSIDE RECORDS SUMMARY | 2025-10-27 12:12 | XMS_ITS ---
Author Organization Unknown Address [id number] [place] [phone] Phone Care Team Providers Care Hospital Administrator Name Role Phone ANNABELLE GONZALEZ Attending Unavailable [...] PCR - Colle ct Date/Time: 06/14/2024 00:01 [facility] ID: [id number] [address] [place] [address], [id number] LOINC: 19148-5 Test Value Unit Reference Range Code Code System Flag GRP A STREP PCR NEGATIVE NORMAL: NEGATIVE RESPIRATORY PATHOGEN PANEL + SARS PCR - Collect Date/Time: 06/14/2024 00:01 [facility] ID: [id number] [address] [place] [address], [id number] LOINC: 99477-7 Test Value Unit Reference Range Code Code System Flag ADENOVIRUS NOT DETECTED NORMAL: NOT DETECTED 5778-6 LOINC CORONAVIRUS 229E NOT DETECTED NORMAL: NOT DETECTED 5778-6 LOINC CORONAVIRUS HKU1 NOT DETECTED NORMAL: NOT DETECTED 5778-6 LOINC CORONAVIRUS NL63 NOT DETECTED NORMAL: NOT DETECTED 5778-6 LOINC CORONAVIRUS OC43 NOT DETECTED NORMAL: NOT DETECTED 5778-6 LOINC CORONAVIRUS COVID-19 NOT DETECTED NORMAL: NOT DETECTED 80152-7 LOINC H METAPNEUMOVIRUS NOT DETECTED NORMAL: NO [...] NORMAL: NOT DETECTED 5778-6 LOINC SEND TO [facility]? NO CHEST 2V - Completed: 2023 [...] Banks M.D., D.O. MW: SOLA Report ID: [id number] Reading Location: [place] [address] Social History Type Status Start Date End Date Code Code Syst em Smoking History Never smoker (Never Smoked) 846066410 SNOMED CT Sex Female Assessment You had [...] 6002 SNOMED-CT UNSPECIFIED ABDOMINAL PAIN active 215 45621 SNOMED-CT Allergies and Adverse Reactions Allergy Substance Reaction Severity Start Date Concern Status Co de Code System AMOXICILLIN Active 723 RxNorm TERBUTALINE Active 54329 RxNorm Plan of Treatment Stress Test Treadmill 01/21/2025 Professor Of Vegetable Science Consult 04/27/2025 Encounters Encounter Diagnosis Start Date [...]
--- OUTSIDE RECORDS SUMMARY | 2025-10-27 12:12 | XMS_ITS | Clinical Summary ---
Author Organization [employer] [facility] Address [address] [place] [address] Care Team Providers Care Web Content Specialist Name Role Phone Unavailable Primary Care Provider Unavailabl e Source Comments [facility],non-owned Affiliates and Associated Physician Practices is amultiple site organization consisting of ambulatory clinics and hospital sitesin [place], [place], [place]. This disclosure is being madepursuant to the Care Everywhere program and may not contain all information available regarding this patient. Last updated 18.[employer] Allergies Active Allergy Reactions Criticality Noted Date [...] Encounters Date Type Department Care Team Description 08/30/2025 Patient Outreach [facility] MATERNAL/ EVALUATION UNIT [address] [place] [address] Anju Flanagan RN Care Management Other (Follow up for SDOH needs. Pt was seen once at [facility] on 06/07/25. Pt has no other follow up appointment at this location. She is receiving care in [place]. Will close this referral. ) from Last 3 Months Social History Tobacco Use Types Packs/Day Years Used Date Smoking Tobacco: Never Assessed Overall Financial Resource Strain (CARDIA) Answe r Date Recorded How hard is it for you to pa y for the very basics like food, housing, medical care, and heating? Not hard at all 06/07/2025 [facility] - Occupational Stress [...] things needed for daily living? No 06/07/2025 [place] Depression Scale Answer Date Recorded [place] Depression Scale Total 14 06/07/2025 The thought [...] in the past 12 m [facility], were you homeless or living in a half-way (including now)? 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 Gender Identity Not on file Sexual [...] 59 yrs (No Doses Required) Completed Insurance [facility] SELF PAY NO INSURANCE Member Subscriber Plan / Payer (Ef fective for All Dates) Name:Librado Mejia Member ID:Not on file Relation to Subscriber:Not on file Name:LIBRADO MEJIA Subscriber ID:Not on file (Home) Address: [address] [place] [id number] Payer ID:Not on file Group ID:Not on file Type:Self Pay Address: [place], [place] Advance Directives * Full Code (Latest Code Status on File) Date Activated Date Inactivated Comments 05/21/2025 3:16 PM 05/23/2025 3:20 PM
--- OUTSIDE RECORDS SUMMARY | 2025-10-27 12:13 | XMS_ITS | Encounter Summary ---
Author Organization [facility] Address [address] [place] [address] Care Team Providers Care Cutter Brake Lining Name Role Phone Tanner Paige MD Primary Care Provider [phone] Janell Celaya APNP Unavailable Tara Miranda ANP-BC Unavailable + Roseanne Roper INSIDE SALES LEAD-C Unavailable [phone] Encounter Details Date Type Department Care Team [...] Recorded Patient Health Questionnaire-2 Score 0 05/13/2024 [facility] - Occupational Stress Questionnaire Answer Date [...] often do you attend chur ch or synagogue services? 1 to 4 times per year 08/29/2025 Do you belong to any clubs o r organizations such as synagogue groups, unions, fraternal or athletic groups, or [...] and heating? Not hard at all 08/29/2025 [facility] Occupat ional Health - [...] any time in the past 12 m [facility], were you homeless or living in a nursing home (including now)? No 08/29/2025 B1300 Health Literacy Answer Date Recor ded How often do you need to hav e someone help you when you read instructions, pamphlets, or other written material from your doctor or pharmacy? Never 08/29/2025 [facility] Utilities Answer Date Recorded In the [...] st Contact Info) Description 11/01/2025 1:00 PM CABLE INSPECTOR Telephone [facility] d [address] [place] [phone] Roseanne Roper INSIDE SALES LEAD-C [address] [place] [address] 11/04/2025 12:30 PM CABLE INSPECTOR Office Visit [facility] [address] [place] [phone] Tara Miranda ANP-BC [address] [place] [phone] 11/05/2025 6:00 AM CABLE INSPECTOR Appointment [facility] [address] [place] [address] Roseanne Roper INSIDE SALES LEAD-C [address] [place] [address] documented as of this encounter Visit Diagnoses Not on filedocumented in this encounter Care Teams Cutter Brake Lining Relationship Specialty Start Date End Date Tanner Paige MD [address] [place] [phone] PCP - General FAMILY PRACTICE 07/01/24 [place] [phone] NURSE PRACTITIONER 12/01/24 Tara Miranda, ANP-BC [address] [place] [address] Nurse Practitioner NURSE PRACTITIONER ADULT HEALTH 10/08/25 Roseanne Roper INSIDE SALES LEAD-C [place] [place] [address] Nurse Practitioner Family 10/25/25 documented as of this encounter
--- OUTSIDE RECORDS SUMMARY | 2025-10-27 12:13 | XMS_ITS | Clinical Summary ---
Author Organization [facility] Address [address] [place] [address] Care Team Providers Care Safety And Security Officer Name Role Phone Tammi Menon DOREEN Primary [...] have care with Dr. Ortega Denson in [place], [place]. Assessment & Plan (07/04/2019 7:48 PM CDT): - no plans to initiate care [place] - gave Rx for doxylamine/pyridoxine for nausea - encouraged smoking cessation; recommended she d/w Dr. Addison Denson when she establishes care Abdominal pain in 07/04/2019 Overview (07/04/2019): 07/04/2019: presented to [facility], r/o for acute process. Transfer to [facility] for dating confirmation. Reports no BM [...] file Legal Sex Female 11:55 PM SENIOR CARE MANAGER Gender Identity Not on file Sexual [...] Comments Blood Pressure 101/69 12/31/2024 5:25 PM SENIOR CARE MANAGER Pulse 77 12/31/2024 5:25 PM SENIOR CARE MANAGER Temperature 37.1 C (98.7 F) 12/31/2024 2:09 PM SENIOR CARE MANAGER Respiratory Rate 18 12/31/2024 5:25 PM SENIOR CARE MANAGER Oxygen Saturation 100% 12/31/2024 5:25 PM SENIOR CARE MANAGER Inhaled Oxygen Concentration - - Weight 72.7 kg (160 lb 4.4 oz) 12/31/2024 2:09 P M SENIOR CARE MANAGER Height 165.1 cm (5' 5) 12/31/2024 2:09 PM SENIOR CARE MANAGER Body Mass Index 26.67 12/31/2024 2:09 PM SENIOR CARE MANAGER Plan of Treatment Health Maintenance Due [...] patient's age to complete this topic Insurance [facility] Care Teams Safety And Security Officer Relationship Specialty Start Date End Date Tammi Menon LauraDOREEN [address] Pediatric Emerg. Dept. [place] [phone] PCP - General Family Medicine 12/31/24
--- OUTSIDE RECORDS SUMMARY | 2025-10-27 12:13 | XMS_ITS | Continuity of Care Document ---
Author Organization 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 Plan of Treatment Reminders Order Date Submit Date Provider Last Modified By Organization Details Last Modified Time Details Appointments None record ed. Lab None record ed. Referral None record ed. Procedures None record ed. Surgeries None record ed. Imaging non-st ress test 025 08/11/20 25 [email or web address], [place], [address], 17:46:32 Medication Orders None record ed. Patient TargetsNo targets recorded. Patient InstructionsNo instructions recorded. Reason for Referral None Reported. Results Created Date Observation Date Name Description Value Unit Range Abnormal Flag Note LastModifiedBy Organization Detail LastModifiedTime 03/06/2003/06/2025 [UNIT Y] ANEUP LOIDY NIPT fraction 5.7% normal Not Available [facility] [address], [place], [address], 03/06/2025 03:58:26 03/06/20 25 03/06/2025 [UNIT Y] ANEUP LOIDY NIPT sex chromosome aneuploidy NOT DETECT ED normal Not Available [facility] [address], [place], [address], 03/06/2025 03:58:26 03/06/20 25 03/06/2025 [UNIT Y] ANEUP LOIDY NIPT monosomy X LOW RISK <1 in 10,000 normal Not Available [facility] [address], [place], [address], 03/06/2025 03:58:26 03/06/20 25 03/06/2025 [UNIT Y] ANEUP LOIDY NIPT trisomy 13 LOW RISK <1 in 10,000 normal Not Available [facility] [address], [place], [address], 03/06/2025 03:58:26 03/06/20 25 03/06/2025 [UNIT Y] ANEUP LOIDY NIPT trisomy 18 LOW RISK <1 in 10,000 normal Not Available [facility] [address], [place], [address], 03/06/2025 03:58:26 03/06/20 25 03/06/2025 [UNIT Y] ANEUP LOIDY NIPT trisomy 21 LOW RISK <1 in 10,000 normal Not Available [facility] [address], [place], [address], 03/06/2025 03:58:26 03/06/20 25 03/06/2025 [UNIT Y] ANEUP LOIDY NIPT sex FEMALE normal Not Available [facility] [address], [place], [address], 03/06/2025 03:58:26 03/06/20 25 03/06/2025 [UNIT Y] ANEUP LOIDY NIPT gestation SINGLE TON normal Not Available [facility] [address], [place], [address], 03/06/2025 03:58:26 03/06/20 25 03/06/2025 [UNIT Y] ANEUP LOIDY NIPT for detailed report, see pdf See PDF normal Not Available [facility] [address], [place], [address], 03/06/2025 03:58:26 03/02/2003/02/2025 CULTU RE: URINE result report SEE RESULT S BELOW Test: Cultu re: Urine Speci men Sourc e: Urine - Clean Catch Speci men Type: Urine Speci men Date: 1455 Resul t Date: 025 2138 Resul t Statu s: Final resul t Abnor mal: No Resul ting Lab: [facility] [address] [facility] [address] Tel: CULTU RE ----- ----- ----- --- No growt h in 1 day (dete ction level of 10,00 0 colon ies / ml.) Not Available [facility] (Lab) [address] [facility], [place], [address], 03/03/2025 22:42:27 03/12/2003/12/2025 CULTU RE: URINE result report SEE RESULT S BELOW Test: Cultu re: Urine Speci men Sourc e: Urine - Clean Catch Speci men Type: Urine Speci men Date: 2024 1600 Resul t Date: 2024 0610 Resul t Statu s: Final resul t Abnor mal: No Resul ting Lab: [facility] [address] [facility] [address] Tel: CULTU RE ----- ----- ----- --- No growt h in 1 day (dete ction level of 10,00 0 colon ies / ml.) Not Available [facility] (Lab) [address] [facility], [place], [address], 03/14/2025 07:15:03 03/12/2003/12/2025 urina lysis , dipst ick Leukocytes ++ Not Available [address], [place], [address], 03/12/2025 16:45:06 03/12/2003/1203/12/2025 urina lysis , dipst ick Protein + Not Available [address], [place], [address], 03/12/2025 16:45:06 03/12/20 25 03/12/2025 urina lysis , dipst ick pH 5 Not Available [address], [place], [address], 03/12/2025 16:45:06 03/12/20 25 03/12/2025 urina lysis , dipst ick Blood trace Not Available [address], [place], [address], 03/12/2025 16:45:06 03/12/20 25 03/12/2025 urina lysis , dipst ick Specific [place] 1.015 Not Available [facility] [address], [place], [address], 03/12/2025 16:45:06 03/12/20 25 03/12/2025 urina lysis , dipst ick Ketone +++ Not Available [address], [place], [address], 03/12/2025 16:45:06 03/31/20 25 03/31/2025 TSH, REFLE X FREE T4 TSH 0.42 uIU/m L 0.30-5 .33 Not Available [facility] (Lab) [address], [place], [address], 04/01/2025 03:05:12 03/31/20 25 03/31/2025 CULTU RE: URINE result report SEE RESULT S BELOW Test: Cultu re: Urine Speci men Sourc e: Urine Voide d Speci men Type: Urine Speci men Date: 1710 Resul t Date: 6 Resul t Statu s: Final resul t Abnor mal: No Resul ting Lab: [facility] [address] [facility] [address] Tel: CULTU RE ----- ----- ----- --- Cultu re resul t (>=3 organ isms prese nt) indic ates possi ble conta minat ion. Repea t cultu re if sympt oms indic ate. Not Available [facility] (Lab) [address] [facility], [place], [address], 04/01/2025 23:59:19 03/31/20 25 03/31/2025 urina lysis , dipst ick Leukocytes +1 Not Available [address], [place], [address], 03/31/2025 09:23:13 03/31/20 25 03/31/2025 urina lysis , dipst ick Nitrite normal Not Available [address], [place], [address], 03/31/2025 09:23:13 03/31/20 25 03/31/2025 urina lysis , dipst ick Urobilinogen normal Not Available [facility] david [address], [place], [address], 03/31/2025 09:23:13 03/31/20 25 03/31/2025 urina lysis , dipst ick Protein trace Not Available [address], [place], [address], 03/31/2025 09:23:13 03/31/20 25 03/31/2025 urina lysis , dipst ick pH 5 Not Available [address], [place], [address], 03/31/2025 09:23:13 03/31/20 25 03/31/2025 urina lysis , dipst ick Specific [place] 1.020 Not Available [facility] [address], [place], [address], 03/31/2025 09:23:13 03/31/20 25 03/31/2025 urina lysis , dipst ick Ketone normal Not Available [address], [place], [address], 03/31/2025 09:23:13 03/31/20 25 03/31/2025 urina lysis , dipst ick Bilirubin normal Not Available [facility] [address], [place], [address], 03/31/2025 09:23:13 03/31/20 25 03/31/2025 urina lysis , dipst ick Glucose normal Not Available [address], [place], [address], 03/31/2025 09:23:13 03/31/20 25 03/31/2025 urina lysis , dipst ick Appearance normal [facility] Available [facility] [address], [place], [address], 03/31/2025 09:23:13 03/31/20 25 03/31/2025 urina lysis , dipst ick Color normal Not Available [address], [place], [address], 03/31/2025 09:23:13 04/01/20 25 04/01/2025 [facility], DENIS bacterial vaginosis (bv), tma Negati ve negati ve Not Available [facility] (Lab) [address] [place], [address], 04/02/2025 14:08:45 04/01/20 25 04/01/2025 [facility], DENIS mekhi species, tma Negati ve negati ve Not Available [facility] (Lab) [address] [place], [address], 04/02/2025 14:08:45 04/01/20 25 04/01/2025 [facility] SWAB PLUS, DENIS mekhi glabrata, tma Negati ve negati ve Not Available [facility] (Lab) [address] [place], [address], 04/02/2025 14:08:45 04/01/20 25 04/01/2025 [facility] SWAB [facility]US, DENIS trichomonas vaginalis, tma Negati ve negati ve Not Available [facility] (Lab) [address] [facility], [place], [address], 04/02/2025 14:08:45 04/01/20 25 04/01/2025 [facility] SWAB PLUS, DENIS chlamydia trachomatis, PCR Negati ve negati ve Not Available [facility] (Lab) [address] [place], [address], 04/02/2025 14:08:45 04/01/20 25 04/01/2025 [facility] [...] [facility] (Lab) [address] , [place], [address], 04/02/2025 14:08:45 04/22/20 25 04/22/2025 CULTU RE: URINE result report SEE RESULT S BELOW Test: Cultu re: Urine Speci men Sourc e: Urine Voide d Speci men Type: Urine Speci men Date: 2024 1314 Resul t Date: 2024 0322 Resul t Statu s: Final resul t Abnor mal: No Resul ting Lab: [facility] [address] [facility] [address] Tel: CULTU RE ----- ----- ----- --- No growt h in 1 day (dete ction level of 10,00 0 colon ies / ml.) Not Available [facility] (Lab) [address], [place], [address], 04/24/2025 04:28:01 04/22/20 25 04/22/2025 urina lysis , dipst ick Leukocytes + Not Available [facility] [address], [place], [address], 04/22/2025 10:01:51 04/22/20 25 04/22/2025 urina lysis , dipst ick Protein + Not Available [address], [place], [address], 04/22/2025 10:01:51 04/22/20 25 04/22/2025 urina lysis , dipst ick pH 8 Not Available [address], [place], [address], 04/22/2025 10:01:51 04/22/20 25 04/22/2025 urina lysis , dipst ick Blood + Not Available [address], [place], [address], 04/22/2025 10:01:51 04/22/2004/22/2025 urina lysis , dipst ick Specific [place] 1.010 Not Available [facility] [address], [place], [address], 04/22/2025 10:01:51 04/22/20 25 04/22/2025 urina lysis , dipst ick Ketone + Not Available [address], [place], [address], 04/22/2025 10:01:51 06/23/2006/23/2025 HEMAT OCRIT (HCT) HCT 35.6 % (based on docume nted legal sex) 34.0-4 5.0 Not Available [facility] (Lab) [address] [facility], [place], [address], 06/24/2025 11:45:32 06/23/20 25 06/23/2025 HEMOG LOBIN (HGB) HGB 11.1 g/dL (based on docume nted legal sex) 11.6-1 5.4 low Not Available [facility] (Lab) [address] [facility], [place], [address], 06/24/2025 11:45:32 06/23/20 25 06/23/2025 GTT - GESTA ROLAND L SCREE N, ACOG OB glucose, 1 hour screen 180 mg/dL 70-135 high Not Available [facility] (Lab) [address] [facility], [place], [address], 06/24/2025 11:45:33 06/23/20 25 06/23/2025 HIV 1/2 ANTIG EN/AN TIBOD Y, REFLE X CONFI RMATI ON HIV antigen/anti body Nonrea ctive nonrea ctive HIV-1 antig en and HIV-1 /HIV- 2 antib odies were not detec greg. No labor atory evide nce of HIV infec tion. Not Available [facility] (Lab) [address] [facility], [place], [address], 06/24/2025 11:45:33 06/23/20 25 06/23/2025 RPR SCREE N, REFLE X TITER /CONF IRMAT ION RPR qualitative Nonrea ctive nonrea ctive Not Available [facility] (Lab) [address] [facility], [place], [address], 06/24/2025 11:45:34 07/21/20 25 07/21/2025 CULTU RE: URINE result report SEE RESULT S BELOW Test: Cultu re: Urine Speci men Sourc e: Urine - Clean Catch Speci men Type: Urine Speci men Date: 2024 1024 Resul t Date: 2024 0252 Resul t Statu s: Final resul t Abnor mal: No Resul ting Lab: [facility] [address] [facility] [address] Tel: CULTU RE ----- ----- ----- --- No growt h in 1 day (dete ction level of 10,00 0 colon ies / ml.) Not Available [facility] (Lab) [address] [facility], [place], [address], 07/23/2025 03:57:01 07/21/2007/21/2025 urina lysis , dipst ick Leukocytes ++ Not Available [address], [place], [address], 07/21/2025 11:03:04 07/21/20 25 07/21/2025 urina lysis , dipst ick Nitrite neg Not Available [address], [place], [address], 07/21/2025 11:03:04 07/21/20 25 07/21/2025 urina lysis , dipst ick Urobilinogen neg Not Available [facility] [address], [place], [address], 07/21/2025 11:03:04 07/21/20 25 07/21/2025 urina lysis , dipst ick Protein + Not Available [address], [place], [address], 07/21/2025 11:03:04 07/21/20 25 07/21/2025 urina lysis , dipst ick pH 5 Not Available [address], [place], [address], 07/21/2025 11:03:04 07/21/20 25 07/21/2025 urina lysis , dipst ick Specific [place] 1.030 Not Available [facility] nita [address], [place], [address], 07/21/2025 11:03:04 07/21/20 25 07/21/2025 urina lysis , dipst ick Ketone +++ Not Available [address], [place], [address], 07/21/2025 11:03:04 07/21/20 25 07/21/2025 urina lysis , dipst ick Bilirubin neg Not Available [address], [place], [address], 07/21/2025 11:03:04 07/21/20 25 07/21/2025 urina lysis , dipst ick Glucose neg Not Available [address], [place], [address], 07/21/2025 11:03:04 07/21/20 25 07/21/2025 urina lysis , dipst ick Appearance cloudy Not Available [address], [place], [address], 07/21/2025 11:03:04 07/21/20 25 07/21/2025 urina lysis , dipst ick Color dark Not Available [address], [place], [address], 07/21/2025 11:03:04 08/04/20 25 08/04/2025 CMP(C OMPRE HENSI VE METAB OLIC PANEL ) sodium 138 mmol/ L 133-14 6 Not Available [facility] (Lab) [address] [facility], [place], [address], 08/05/2025 13:39:18 08/04/2008/04/2025 CMP(C OMPRE HENSI VE METAB OLIC PANEL ) potassium 4.0 mmol/ L 3.5-5. 1 Not Available [facility] (Lab) [address] [facility], [place], [address], 08/05/2025 13:39:18 08/04/20 25 08/04/2025 CMP(C OMPRE HENSI VE METAB OLIC PANEL ) chloride 105 mmol/ L 98-107 Not Available [facility] (Lab) [address] [facility], [place], [address], 08/05/2025 13:39:18 08/04/20 25 08/04/2025 CMP(C OMPRE HENSI VE METAB OLIC PANEL ) carbon dioxide 25 mmol/ L 21-31 Not Available [facility] (Lab) [address] [facility], [place], [address], 08/05/2025 13:39:18 08/04/20 25 08/04/2025 CMP(C OMPRE HENSI VE METAB OLIC PANEL ) anion gap 8 mmol/ L 4-13 Not Available [facility] (Lab) [address] [place], [address], 08/05/2025 13:39:18 08/04/20 25 08/04/2025 CMP(C OMPRE HENSI VE METAB OLIC PANEL ) blood urea nitrogen 10 mg/dL 7-25 Not Available [facility] (Lab) [address] [facility], [place], [address], 08/05/2025 13:39:18 08/04/20 25 08/04/2025 CMP(C OMPRE HENSI VE METAB OLIC PANEL ) creatinine 0.41 mg/dL 0.60-1 .30 low Not Available [facility] (Lab) [address] [facility], [place], [address], 08/05/2025 13:39:18 08/04/20 25 08/04/2025 CMP(C OMPRE HENSI VE METAB OLIC PANEL ) egfrcr (CKD-epi 2020) >90 mL/mi n/1.7 3_m2 >=60 Not Available [facility] (Lab) [address] [facility], [place], [address], 08/05/2025 13:39:18 08/04/20 25 08/04/2025 CMP(C OMPRE HENSI VE METAB OLIC PANEL ) calcium 8.9 mg/dL 8.3-10 .5 Not Available [facility] (Lab) [address] [facility], [place], [address], 08/05/2025 13:39:18 08/04/20 25 08/04/2025 CMP(C OMPRE HENSI VE METAB OLIC PANEL ) glucose 116 mg/dL 70-100 high Not Available [facility] (Lab) [address] [facility], [place], [address], 08/05/2025 13:39:18 08/04/20 25 08/04/2025 CMP(C OMPRE HENSI VE METAB OLIC PANEL ) protein, total 6.1 g/dL 6.4-8. 3 low Not Available [facility] (Lab) [address] [facility], [place], [address], 08/05/2025 13:39:18 08/04/20 25 08/04/2025 CMP(C OMPRE HENSI VE METAB OLIC PANEL ) albumin 3.5 g/dL 3.5-5. 0 Not Available [facility] (Lab) [address] [facility], [place], [address], 08/05/2025 13:39:18 08/04/20 25 08/04/2025 CMP(C OMPRE HENSI VE METAB OLIC PANEL ) ALT 11 units /L 9-43 Not Available [facility] (Lab) [address] [facility], [place], [address], 08/05/2025 13:39:18 08/04/20 25 08/04/2025 CMP(C OMPRE HENSI VE METAB OLIC PANEL ) alkaline phosphatase 98 units /L 34-104 Not Available [facility] (Lab) [address] [facility], [place], [address], 08/05/2025 13:39:18 08/04/20 25 08/04/2025 CMP(C OMPRE HENSI VE METAB OLIC PANEL ) AST 15 units /L 13-39 Not Available [facility] (Lab) [address] [facility], [place], [address], 08/05/2025 13:39:18 08/04/20 25 08/04/2025 CMP(C OMPRE HENSI VE METAB OLIC PANEL ) bilirubin, total 0.3 mg/dL 0.2-1. 2 Not Available [facility] (Lab) [address] [facility], [place], [address], 08/05/2025 13:39:18 08/04/20 25 08/04/2025 BILE ACIDS , TOTAL bile acids, total 4 umol/ L 0-10 Test Perfo rmed by: [facility] [address] [address] Not Available [facility] (Lab) [address] [facility], [place], [address], 08/05/2025 13:39:19 03/02/20 25 03/02/2025 US, obste tric, nucha l trans lucen cy No observ ation record ed. [email or web address] [address], [place], [address], 03/02/2025 13:35:30 03/02/20 25 03/02/2025 US, obste tric, nucha l trans lucen cy No observ ation record ed. [email or web address] [address], [place], [address], 03/03/2025 14:08:39 03/08/20 25 03/08/2025 US, obste tric, 1st trime ster No observ ation record ed. [email or web address] [address], [place], [address], 03/08/2025 12:22:22 03/08/20 25 03/08/2025 US, obste tric, 1st trime ster No observ ation record ed. [email or web address] [address], [place], [address], 03/10/2025 15:03:13 04/01/20 25 03/24/2025 qamar r monit or No observ ation record ed. [address] [place] [address], [address], 04/08/2025 12:36:45 04/01/20 25 03/22/2025 qamar r monit or No observ ation record ed. [address] (Pulmonary) [address] [place] [address] [place] [address], [address], 04/06/2025 08:59:34 04/20/20 25 04/20/2025 US, obste tric, limit ed No observ ation record ed. [email or web address] [address], [place], [address], 04/20/2025 17:39:30 04/20/20 25 04/20/2025 US, obste tric, follo w-up No observ ation record ed. [email or web address] [address], [place], [address], 04/23/2025 08:32:54 04/28/20 25 04/28/2025 US, obste tric, 2nd or 3rd trime ster No observ ation record ed. [email or web address] [address], [place], [address], 04/28/2025 17:48:42 04/28/20 25 04/28/2025 US, obste tric, 2nd or 3rd trime ster No observ ation record ed. [email or web address] [address], [place], [address], 05/04/2025 22:16:11 05/07/20 25 05/07/2025 non-s tress test No observ ation record ed. [email or web address] [place] [address] [address], [place], [address], 05/28/2025 13:33:54 05/21/20 25 05/21/2025 CT, head + brain , w/o contr ast No observ ation record ed. [address], [place], [address], 05/24/2025 13:48:57 05/28/20 25 05/28/2025 US, obste tric, follo w-up No observ ation record ed. [facility] [address], [place], [address], 05/28/2025 17:32:34 05/28/20 25 05/28/2025 US, obste tric, follo w-up No observ ation record ed. Esha [address], [place], [address], 06/01/2025 15:13:13 06/08/20 25 06/07/2025 US, obste tric, follo w-up No observ ation record ed. [email or web address] [facility] [address] [facility], [place], [address], 06/15/2025 10:53:46 07/07/20 25 07/07/2025 US, obste tric, follo w-up No observ ation record ed. [email or web address] [address], [place], [address], 07/07/2025 13:18:01 07/07/20 25 07/07/2025 US, obste tric, follo w-up No observ ation record ed. [email or web address] [address], [place], [address], 07/07/2025 11:29:37 08/04/20 25 08/04/2025 US, obste tric, follo w-up No observ ation record ed. [email or web address] [address], [place], [address], 08/04/2025 15:08:50 08/04/20 25 08/04/2025 US, obste tric, follo w-up No observ ation record ed. [address]sha [address], [place], [address], 08/06/2025 10:41:50 08/11/2008/11/2025 non-s tress test No observ ation record ed. [email or web address] [address], [place], [address], 08/11/2025 17:37:52 08/11/20 non-s tress test No observ ation record ed. [email or web address] [address], [place], [address], 08/11/2025 17:38:11 08/15/2008/15/2025 non-s tress test No observ ation record ed. [address], [place], [address], 08/21/2025 10:18:57 08/15/2008/15/2025 US, obste tric, bioph ysica l profi le No observ ation record ed. [place] [id number] [facility] [address], [place], [address], 08/17/2025 10:50:53 08/18/2008/18/2025 US, obste tric, bioph ysica l profi le + non-s tress test No observ ation record ed. [email or web address] [address], [place], [address], 08/18/2025 10:21:39 08/18/2008/18/2025 US, obste tric, bioph ysica l profi le + non-s tress test No observ ation record ed. [email or web address] [address], [place], [address], 08/18/2025 10:35:44 08/18/2008/18/2025 non-s tress test No observ ation record ed. [email or web address] [address], [place], [address], 08/18/2025 17:34:03 08/18/20 non-s tress test No observ ation record ed. [email or web address] [address], [place], [address], 08/18/2025 16:06:09 08/25/20 25 08/25/2025 US, obste tric, bioph ysica l profi le + non-s tress test No observ ation record ed. [email or web address] [address], [place], [address], 08/25/2025 18:52:06 08/25/2008/25/2025 US, obste tric, follo w-up No observ ation record ed. [email or web address] [address], [place], [address], 08/25/2025 15:47:28 08/25/2008/25/2025 non-s tress test No observ ation record ed. [email or web address] [address], [place], [address], 08/25/2025 18:12:15 08/25/20 non-s tress test No observ ation record ed. [email or web address] [address], [place], [address], 08/25/2025 17:21:19 08/30/2008/30/2025 non-s tress test No observ ation record ed. [email or web address] [address] [place] [address], [address], 09/15/2025 15:26:49 09/01/20 25 09/01/2025 non-s tress test No observ ation record ed. [place] [id number] [facility] [address] [place] [address], [address], 09/13/2025 11:32:22 09/01/2009/01/2025 [place], obste tric No observ ation record ed. [email or web address] [id number] [facility] [address], [place], [address], 09/02/2025 15:56:01 09/01/20 25 09/01/2025 non-s tress test No observ ation record ed. [email or web address], [place], [address], 09/02/2025 14:32:38 09/16/20 25 09/16/2025 CT, angio gram, head + neck, w/ contr ast No observ ation record ed. [email or web address] [facility] [address], [place], [address], 09/16/2025 20:01:05 09/28/20 25 09/28/2025 non-s tress test No observ ation record ed. [email or web address] [facility] [address], [place], [address], 10/04/2025 16:42:40 Result Notes None recorded. Problems Name Problem SNOMED Code Status Onset Date Resolution Date Notes Provider Name and Address Organization Details Recorded Time Hypereme sis 698062391 Completed phenerga n now prn Asia ramos [facility] 2 16:43:51 Anxiety in pregnanc y 7240323525 9109 Completed will continue to monitor Asia ramos [facility] 2 16:43:51 Past pregnanc y history of gestatio nal diabetes mellitus 125873742 Completed Early 1 hr GTT @ 20wks 11/03 APPT Asia ramos [facility] 2 16:43:51 Spinal muscular atrophy 8312146 Completed Carrier - Not in contact with FOB. Asia ramos [facility] 2 16:43:51 Anxiety 88146595 Completed prozac Karina ramos [facility] 4 11:00:46 Nausea 088239535 Completed d/c zofran pump 11/08 per pt request Karina ramos [facility] 4 11:00:46 Postpart um hemorrha ge [id number] Completed 2017 with d&c Karina ramos [facility] 4 11:00:46 Normal pregnanc y in multigra jessy [id number] 18766 Completed 201907/05/2021 Encounte r for supervis ion of other normal pregnanc y, 3rd trimeste r;Record ed Elsewher e: No Locat ion: [place] [facility] S ource: EHR Proof Coins Inspector yvrose: N Practi ce ID: 0001 Gigi lable Time: 10:45:00 AM Karina ramos [facility] 1 10:15:27 Gestatio n period, 37 weeks 90180063 Completed 201907/05/2021 37 weeks gestatio n of pregnanc y;Record ed Elsewher e: No Locat ion: [facility] S ource: EHR Proof Coins Inspector yvrose: N Practi ce ID: 0001 Gigi lable Time: 09:00:00 AM Karina ramos [facility] 10:15:[address] Concept Completed 201907/05/2021 Matern care for abnlt fetl hrt rate or rhym, 3rd tri, unsp;Rec orded Elsewher e: No Locat ion: [facility] S ource: EHR Proof Coins Inspector yvrose: N Practi ce ID: 0001 Gigi lable Time: 08:45:00 AM Karina ramos [facility] 10:15:29 Gestatio nal diabetes mellitus 71786296 Completed 201907/05/2021 Gestatio nal diabetes mellitus in pregnanc y, diet controll ed;Recor ded Elsewher e: No Locat ion: [facility] S ource: EHR Proof Coins Inspector yvrose: N Practi ce ID: 0001 Gigi lable Time: 11:45:00 AM Karina ramos [facility] 1 10:15:25 Gestatio n period, 38 weeks 20681280 Completed 201907/05/2021 38 weeks gestatio n of pregnanc y;Record ed Elsewher e: No Locat ion: [facility] S ource: EHR Proof Coins Inspector vyrose: N Dennis ce ID: 0001 Gigi lable Time: 11:30:00 AM Karina ramos, [facility] 10:15:13 Amenorrh ea 06330552 Completed 202007/10/2021 Tammi Jones null, [facility] 13:08:35 Pregnanc y 04389744 Completed 202003/29/2022 Emma Dykes [facility], [facility] 12:28:48 Pregnanc y 47553559 Completed 202304/22/2024 Emma Dykes [facility], [facility] 12:28:48 Headache 23178142 Active 2023 Karina Burroughs null, [facility] 16:19:28 Pregnanc y 91341238 Completed 202309/14/2025 Emma Dykes [facility], [facility] 12:28:48 Uncompli cated moderate persiste nt asthma 834975187 Completed 2024 albutero l prn Shawn Bradley MD [address], [place], [address], [facility] 13:08:36 Anxiety 15332465 Completed 2024 sertrali ne started 03/02/25 changed to prozac 10 on Shawn Bradley MD [address], [place], [address], [facility] 17:05:48 Nausea and vomiting 20182581 Completed 2024 Shawn Bradley MD [address], [place], [address], [place] [facility] 5 13:20:27 Placenta circumva llata 7150101 Completed 2024 32wk [address] [facility] 09:44:35 Frequent headache 799717686 Completed 2024 transpor t to [facility] 05/21, discharg e 05/23 MFM referral faxed 05/24 [facility] consult pending per KAJAL Pittman [facility]- Neuro [facility] unable to [...] more than 2-3 times a week[address] [facility] [facility] 10:55:26 Abnormal placenta affectin g manageme nt of mother 89901485 Completed 2024 MCI serial growth [facility] 10:46:25 Iron deficien cy anemia 41838190 Completed 2024 SS MFM tx venofer 200mg x1 HGB 10.[address] [facility] 15:21:25 Gestatio nal diabetes mellitus 82223922 Completed 2024 checking bs QID - ruled in GDM Referral faxed to [facility] 07/07 Ryann Castro [facility] 5 14:36:52 Notes:Order faxed to [facility] access 08/10 for PICC line, and home health already caring for pt. Vladimir RDZ at [phone] Problem Notes None recorded. Procedures Surgical History Date Name Laterality Status Provider Name and Address Organization Details Recorded Time 025 SALPINGECTOMY, LAPAROSCOPIC (SURG) completed Not Available [facility] 09/06/2025 11:19:17 025 Date of Last Pap Smear completed Karina Burroughs [facility] 01/28/2025 11:19:42 024 Nexplanon Removal completed Shawn Bradley MD [address], [place], [address], [facility] 08/05/2024 15:09:58 024 Control Implant Insertion completed Anju Mcnamara CNM [address], [place], [address], [facility] 05/08/2024 17:59:34 024 cholecystectomy completed Karina Burroughs [facility] 03/31/2025 09:18:57 018 Dilation and Curettage completed Karina Burroughs [facility] 07/05/2021 10:17:50 Imaging Results None recorded. Procedure Notes None recorded. Medical Equipment None Reported. Allergies Allergen ID Allergen Name Allergen Category Reaction Reaction Severity Criticality Documentation Date Start Date Code Code System Note Provider Name and Address Organization Details Recorded Time 90805 terbutali ne medicatio n anaphylax is Not available Not available 01/27/20252021 [address] [facility] 16:19:27 67938 amoxicill in medicatio n Not available Not available Not available 09/10/2025 723 RxNorm Not Available gene - External Data Service - prod 16:39:37 88716 terbinafi ne medicatio n anaphylax is Not available [facility] 09/10/20252024 03515 RxNorm Not Available gene - External Data [...] Prescrib ed Elsewher e: Yes [facility] By: prabhjot Lee r [...] n (supplie d by office) insert lot [id number] Exp 01/2026 Not Available Not Available Not Available 28 mg iron-800 mcg tablet 07/05 completed Prescrib ed Elsewher e: Yes [facility] By: prabhjot Lee r DateTime : 01/14/20 10:45:00 AM Not Available Not Available Not Available lidocaine 5 % topical ointment APPLY OINTMENT EXTERNAL LY TO RIBS THREE TIMES DAILY NEEDED 01/14 completed Not Available Not Available Not Available R[facility] LATHER-PNV-DH A 28 mg iron-1 mg-200 mg capsule [...] Updated DateTime 08/11/2025 162.56 cm 31.4 kg/m2 65035.4 g 115/73 mm[Hg] Toya Perkins [facility] 08/11/2025 15:17:18 Social History Question Answer Notes LastModified by Organizat ion Details LastModified Time Tobacco Smoking Status Former Smoker Karina ramos, [facility] 07/05/2021 09:06:21 If You Are , What Was Your Level Of Alcohol Consumption Prior To ? Occasional [email or web address] Information not available 03/31/2025 Are You Blind Or Do You Have Difficulty Seeing? No [email or web address] Information not available 07/05/2021 What Is Your Level Of Caffeine Consumption? Heavy [email or web address] Information not available 07/05/2021 In The 14 Days Before Symptom Onset, Have You Had Close Contact With A Laboratory-confir med COVID-19 While That Case Was Ill? No [email or web address] Information not available 07/05/2021 In The 14 Days Before Symptom Onset, Have You Had Close Contact With A Person Who Is Under Investigation For COVID-19 While That Person Was Ill? No [email or web address] Information not available 07/05/2021 Have You Been To An Area Known To Be High Risk For COVID-19? No [email or web address] Information not available 07/05/2021 Are You Deaf Or Do You Have Serious Difficulty Hearing? No [email or web address] Information not available 07/05/2021 What Type Of Diet Are You Following? REGULAR [email or web address] Information not available 07/05/2021 Which Illicit Or Recreational Drugs Have You Used? Marijuana [email or web address] Information not available 07/05/2021 Have You Ever Been Counseled For Unhealthy Alcohol Use? No Information not available 07/05/2021 Do You Use Your Seat Belt Or Car Seat Routinely? Yes Information not available 07/05/2021 Do You Have Smoke And Carbon Monoxide Detectors In Your Home? Yes [email or web address] Information not available 07/05/2021 Do You Use Sunscreen Routinely? Yes [email or web address] Information not available 07/05/2021 Has Tobacco Cessation Counseling Been Provided? No [email or web address] Information not available 07/05/2021 Have You Used IV Drugs? No [email or web address] Information not available 07/05/2021 Do You Have Difficulty Walking Or Climbing Stairs? No [email or web address] Information not available 12/06/2021 Sex: Unknown Functional Status Question Answer Note LastModified by Organizat ion Details LastModified Time Do you use any illicit or recreational drugs? Yes [email or web address] Information not available 07/05/2021 Do you or have you ever used any other forms of tobacco or nicotine? Yes [email or web address] Information not available 07/05/2021 What is your level of alcohol consumption? None [email or web address] Information not available 03/31/2025 Do you or have you ever used smokeless tobacco? Never used smokeless tobacco [email or web address] Information not available 07/05/2021 Are you able to walk independently without assistance or assistive devices? YESWOREST [email or web address] Information not available 07/05/2021 Are you able to care for yourself independently? Yes [email or web address] Information not available 12/06/2021 Do you have difficulty dressing, bathing, grooming, or toileting? No Information not available 12/06/2021 Do you or have you ever used e-cigarettes or vape? Current user of electronic cigarettes [email or web address] Information not available 07/05/2021 What is your exercise level? Occasional [email or web address] Information not available 07/05/2021 Mental Status Question Answer Note LastModified by Organization D etails LastModified Time Do you feel stressed (tense, restless, nervous, or anxious, or unable to sleep at night)? GL45935-5 [email or web address] Information not available 07/05/2021 Family History Relationship Description Onset Age of this Age Resolved Age Notes LastModified by Organization Details LastModified Time Father No current problems or disability [email or web address] Not available 05/2021 09:06:31 Mother No current problems or disability [email or web address] Not available 05/2021 09:06:31 Medical History Condition [...] ICD10 Code Diagnosis IMO Codes Diagnosis Note [id number] Anju Mcnamara CNM [facility] [address],[place] [address] 07/21/2025 09:28:54 07/21/2025 12:36:06 Pain in pelvis 10203961 R10.2 440881 Gestation period, 32 weeks 8272518 Z3A.32 4194112 [id number] Shawn Bradlye MD [facility] [address] [place] [address] 08/04/2025 14:02:59 08/04/2025 15:06:33 Gestational diabetes mellitus 17663712 O24.410 O43.103 O43.113 Z3A.34 02941604 [id number] Anju Mcnamara CNM [facility] [address] [place] [address] 08/04/2025 14:21:57 08/04/2025 15:26:03 Gestation period, 34 weeks 43635522 Z3A.34 2452777 Pruritic d isorder of skin 9538965090 L29.9 39960 plan labs today, ursadiol BID [id number] Anju Mcnamara CNM [facility] [address],[place] [address] 08/11/2025 14:51:38 08/11/2025 17:16:44 Gestational diabetes mellitus 55937196 O24.414 45971871 [id number] Anju Mcnamara CNM [facility] [address] [address] 08/11/2025 16:25:59 08/11/2025 17:46:32 Gestational diabetes mellitus 78603516 O24.414 60329510 Health Concerns Section Related Observation LastModified by Organization Detai ls LastModified Time None Recorded Concern Status LastModified by Organization Details LastModified Time None Recorded Payers Encounter Date Sequence Insurance Name Policy Number Policy Roberts Covered Member ID Roberts Member ID Guarantor Name 08/11/2025 1 [facility] (MEDICAID HMO) [id number] Yuni Mejia [id number] Yuni Mejia Notes Date Note Type Note Provider Name and Address Organization Details Recorded Time 08/11/2025 text/html Generic HPI TemplateReported by Patient Anju Genie Mcnamara CNM [address], [place], [address], [facility] 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 Shop Supervisor Status 03/02/20 25 1 B Positive 164 CLOSED Fetus Data First Name Last Name Admitted to NICU Weight (g) Sex Living Outcome Pediatric Complications Fetus ID Race Codes Race Delivery Type Ziah false 4025.62 9 F true Full Term 43615 Vaginal Delivery Problems Problem Notes SDH form completed 5GI consult Tachycardia Holter monitor 72 order- pt sent back on 03-27-25 Cardiology referral faxed per Dr Martínez office calling pt 04/21 to schedule consult scheduled 05/11 11:15AM Problem Name Start Date End Date Resolution Snomed Code Not e Uncomplicated moderate persistent asthma 03/02/2025 381532896 albuterol prn Abnormal placenta affecting management of mother 05/04/2025 32943448 MCI serial grow th us Iron deficiency anemia 05/25/2025 42330310 [facility] M[facility] tx [place] 200mg x1 HGB 10.6 Nausea and vomiting 03/02/2025 92253158 Anxiety 03/02/2025 28292941 sertralin e started 03/02/25 changed to prozac 10 on Gestational diabetes mellitus 07/08/2025 94005808 checking bs QID - ruled in GDM Referral faxed to [facility] 07/07 Frequent headache 05/03/2025 [id number] [place] to [facility] 05/21, discharge 05/23 MF referral faxed 05/24 [facility] due [facility] 07/05/25 Level US & Consult (see MF consult zayas recommendations ) regimen prn Imitrex 50mg for acute migraine, vitamin B2 (Riboflavin) 400mg, Coenzyme q10 300mg and magnesium oxide 200 to 600mg daily. minimize use of Excedrin or Tylenol to no more than 2-3 times a week. 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/2025 2851699 32wk growth us Jun Calculation Initial Jun [...] Weight in lbs Pre/Post Dialysis Refused Weight 158.160897663398 BP Diastolic BP Location Tested BP Systolic [...] Weight in lbs Pre/Post Dialysis Refused Weight 158.628704501306 BP Diastolic BP Location Tested BP Systolic [...] Weight in lbs Pre/Post Dialysis Refused Weight 162.182870034671 BP Diastolic BP Location Tested BP Systolic BP Type 78 123 Fetus Heart Rate Present A 148 Fetus Movement A Yes Comments Patient is having having ronny n, cramping and vaginal discharge. went to ed exam done cultures and rx sent, ?FM, await fx artist results rfilled zofran, precautions and education f/u [...] Type Weight in lbs Pre/Post Dialysis Refused 168.944749300000 BP Diastolic BP Location Tested BP Systolic [...] Type Weight in lbs Pre/Post Dialysis Refused 169.937070799678 BP Diastolic BP Location Tested BP Systolic [...] Weight in lbs Pre/Post Dialysis Refused Weight 175.210870434306 BP Diastolic BP Location Tested BP Systolic [...] Weight in lbs Pre/Post Dialysis Refused Weight 182.004952461718 BP Diastolic BP Location Tested BP Systolic [...] Weight in lbs Pre/Post Dialysis Refused Weight 181.326440000240 BP Diastolic BP Location Tested BP Systolic BP Type 73 L arm 131 sitting Fetus Heart Rate Present Fetus Movement A Yes Comments viral URI testied neg at urg ent care, nausea resolved, efw 68%, +FM plan education and precautions f/u 2 weeks diagnosed GDM, 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, gave list reviewed protein vs carb Flowsheet Date 07/21/2025 Gibson Score Blood Edema Fundus Height Fundus Units Glucose Ketones Leukocytes Nitrite Labor Signs Protein Cervic Dilation Cervic Effacement Cervic Station Type Weight in lbs Pre/Post Dialysis Refused Weight 181.268591881681 BP Diastolic BP Location Tested BP Systolic BP Type 78 L arm 127 sitting Fetus Heart Rate Present A 150 Fetus Movement A Yes Comments rpt urine culture +FM review ed blood sugars, meets with hobbing machine operator today, precautions and education f/u [...] Weight in lbs Pre/Post Dialysis Refused Weight 181.879290297372 BP Diastolic BP Location Tested BP Systolic [...] Weight in lbs Pre/Post Dialysis Refused Weight 183.440945758550 BP Diastolic BP Location Tested BP Systolic [...] Type Weight in lbs Pre/Post Dialysis Refused 184.228186739069 BP Diastolic BP Location Tested BP Systolic [...] Type Weight in lbs Pre/Post Dialysis Refused 184.570995214196 BP Diastolic BP Location Tested BP Systolic [...] Type Weight in lbs Pre/Post Dialysis Refused 184.232639892272 BP Diastolic BP Location Tested BP Systolic [...] Weight in lbs Pre/Post Dialysis Refused Weight 184.784197496294 BP Diastolic BP Location Tested BP Systolic [...] Weight in lbs Pre/Post Dialysis Refused Weight 164.217374932824 BP Diastolic BP Location Tested BP Systolic [...]
--- OUTSIDE RECORDS SUMMARY | 2025-10-27 12:13 | XMS_ITS ---
Author Organization Unknown Address [address] [place] [phone] Phone Care Team Providers Care Pattern Lease Inspector Name Role Phone MARK Fernandez Attending [...] if indicated - Collect Date/Time: 09/28/2023 07:50 [facility] ID: [id number] [place], [place], [id number] LOINC: 63426-6 Test Value Unit Reference Range Code Code System Flag UR SOURCE UNKNOWN 00485-8 LOINC COLOR YELLOW YELLOW 5778-6 LOINC CLARITY SL CLOUDY CLEAR 81622-3 LOINC SPEC GRAVITY 1.020 1.000-1.030 5811-5 LOINC PH 7.0 5.0 - 6.5 5803-2 LOINC LEUK EST TRACE NEGATIVE 5799-2 LOINC A NITRATE NEGATIVE NEGATIVE PROTEIN NEGATIVE NEGATIVE 5804-0 LOINC GLUCOSE NEGATIVE NEGATIVE 47917-0 LOINC KETONES NEGATIVE NEGATIVE 99803-1 LOINC UROBILINOGEN 1.0 NEGATIVE 5818-0 LOINC BILIRUBIN NEGATIVE NEGATIVE 59751-6 LOINC BLOOD NEGATIVE NEGATIVE 77141-2 LOINC WBC 2-5 0 - 2 24808-1 LOINC RBC 0-2 0 - 2 89445-3 LOINC EPITHELIAL MODERATE RARE-FEW 58463-8 LOINC A ~ COMMENT Prob. contamination due to improper collec ~~ COMMENT RECOLLECT REQUESTED BACTERIA 2+ NONE SEEN 01837-7 LOINC A MUCUS 1+ NONE SEEN 8247-9 LOINC YEAST NOT PRESENT NOT PRESENT 44893-9 LOINC CASTS NONE SEEN 82257-9 LOINC CRYSTALS NONE SEEN 96089-4 LOINC CULTURE? NO 8251-1 LOINC DIAGNOSIS N/A BETA HCG-QUANT - Collect Neil e/Time: 09/28/2023 07:40 [facility] ID: [id number] [place], [place], [id number] LOINC: 66771-4 Test Value Unit Reference Range Code Code System Flag BETA HCG-QUANT 675021.00 mIU/mL L=0.00 H=6.00 82074-4 LOINC H Social History Type Status Start Date End Date Code Code Syst em Smoking History Never smoker (Never Smoked) 865998416 SNOMED CT Sex Female Assessment You had [...] 6002 SNOMED-CT UNSPECIFIED ABDOMINAL PAIN active 215 14860 SNOMED-CT Allergies and Adverse Reactions Allergy Substance Reaction Severity Start Date Concern Status Co de Code System AMOXICILLIN Active 723 RxNorm TERBUTALINE Active 93325 RxNorm Plan of Treatment Stress Test Treadmill 01/21/2025 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
--- OUTSIDE RECORDS SUMMARY | 2025-10-27 12:13 | XMS_ITS ---
Author Organization Unknown Address [address] [place] [phone] Phone Care Team Providers Care Disability Counselor Name Role Phone ANNABELLE GONZALEZ Attending [...] em Smoking History Never smoker (Never Smoked) 523295865 SNOMED CT Sex Female Assessment You had [...] 6002 SNOMED-CT UNSPECIFIED ABDOMINAL PAIN active 215 34422 SNOMED-CT Allergies and Adverse Reactions Allergy Substance Reaction Severity Start Date Concern Status Co de Code System AMOXICILLIN Active 723 RxNorm TERBUTALINE Active 18677 RxNorm Plan of Treatment Stress Test Treadmill 01/21/2025 Assistant Signal Maintainer Consult 04/27/2025 Encounters Encounter Diagnosis Start Date Code Code Sys tem Canceled operative procedure 07/23/2024 59217503 SNOMED-CT Personal Care Team Section Performer Name [...]
--- OUTSIDE RECORDS SUMMARY | 2025-10-27 12:13 | XMS_ITS | Continuity of Care Document ---
Author Organization [facility], [facility] Address [address] [place] [address] Care Team Providers Care Sailor Name Role Phone CARLOS ESTRADA Primary Care Provider Assessment No assessment recorded. Plan of Treatment Reminders Order Date Submit Date Provider Last Modified By Organization Details Last Modified Time Details Appointments None recorded. Lab None recorded. Referral None recorded. Procedures None recorded. Surgeries None recorded. Imaging US, obstetric, biophysical profile + non-stress test 2024 025 [facility], [address], [place], [address], 18:52:06 Medication Orders None recorded. Patient TargetsNo targets recorded. Patient InstructionsNo instructions recorded. Reason for Referral None Reported. Results Created Date Observation Date Name Description Value Unit Range Abnormal Flag Note LastModifiedBy Organization Detail LastModifiedTime 03/06/2003/06/2025 [UNIT Y] ANEUP LOIDY NIPT fraction 5.7% normal Not Available [facility] [address], [place], [address], 03/06/2025 03:58:26 03/06/20 25 03/06/2025 [UNIT Y] ANEUP LOIDY NIPT sex chromosome aneuploidy NOT DETECT ED normal Not Available [facility] [address], [place], [address], 03/06/2025 03:58:26 03/06/20 25 03/06/2025 [UNIT Y] ANEUP LOIDY NIPT monosomy X LOW RISK <1 in 10,000 normal Not Available [facility] [address], [place], [address], 03/06/2025 03:58:26 03/06/20 25 03/06/2025 [UNIT Y] ANEUP LOIDY NIPT trisomy 13 LOW RISK <1 in 10,000 normal Not Available [facility] [address], [place], [address], 03/06/2025 03:58:26 03/06/20 25 03/06/2025 [UNIT Y] ANEUP LOIDY NIPT trisomy 18 LOW RISK <1 in 10,000 normal Not Available [facility] [address], [place], [address], 03/06/2025 03:58:26 03/06/20 25 03/06/2025 [UNIT Y] ANEUP LOIDY NIPT trisomy 21 LOW RISK <1 in 10,000 normal Not Available [facility] [address], [place], [address], 03/06/2025 03:58:26 03/06/20 25 03/06/2025 [UNIT Y] ANEUP LOIDY NIPT sex FEMALE normal Not Available [facility] [address], [place], [address], 03/06/2025 03:58:26 03/06/20 25 03/06/2025 [UNIT Y] ANEUP LOIDY NIPT gestation SINGLE TON normal Not Available [facility] [address], [place], [address], 03/06/2025 03:58:26 03/06/20 25 03/06/2025 [UNIT Y] ANEUP LOIDY NIPT for detailed report, see pdf See PDF normal Not Available [facility] [address], [place], [address], 03/06/2025 03:58:26 03/02/2003/02/2025 CULTU RE: URINE result report SEE RESULT S BELOW Test: Cultu re: Urine Speci men Sourc e: Urine - Clean Catch Speci men Type: Urine Speci men Date: 1455 Resul t Date: 025 2138 Resul t Statu s: Final resul t Abnor mal: No Resul ting Lab: [facility] [address] [facility] [address] Tel: CULTU RE ----- ----- ----- --- No growt h in 1 day (dete ction level of 10,00 0 colon ies / ml.) Not Available [facility] (Lab) [address] [facility], [place], [address], 03/03/2025 22:42:27 03/12/2003/12/2025 CULTU RE: URINE result report SEE RESULT S BELOW Test: Cultu re: Urine Speci men Sourc e: Urine - Clean Catch Speci men Type: Urine Speci men Date: 2024 1600 Resul t Date: 2024 0610 Resul t Statu s: Final resul t Abnor mal: No Resul ting Lab: [facility] [address] [facility] [address] Tel: CULTU RE ----- ----- ----- --- No growt h in 1 day (dete ction level of 10,00 0 colon ies / ml.) Not Available [facility] (Lab) [address] [place], [address], 03/14/2025 07:15:03 03/12/2003/12/2025 urina lysis , dipst ick Leukocytes ++ Not Available [address], [place], [address], 03/12/2025 16:45:06 03/12/2003/12/2025 urina lysis , dipst ick Protein + Not Available [facility] [address], [place], [address], 03/12/2025 16:45:06 03/12/20 25 03/12/2025 urina lysis , dipst ick pH 5 Not Available [facility] [address], [place], [address], 03/12/2025 16:45:06 03/12/20 25 03/12/2025 urina lysis , dipst ick Blood trace Not Available [facility] [address], [place], [address], 03/12/2025 16:45:06 03/12/20 25 03/12/2025 urina lysis , dipst ick Specific Allamuchy 1.015 Not Available [facility] [address], [place], [address], 03/12/2025 16:45:06 03/12/20 25 03/12/2025 urina lysis , dipst ick Ketone +++ Not Available [facility] [address], [place], [address], 03/12/2025 16:45:06 03/31/20 25 03/31/2025 TSH, REFLE X FREE T4 TSH 0.42 uIU/m L 0.30-5 .33 Not Available [facility] (Lab) [address] [facility], [place], [address], 04/01/2025 03:05:12 03/31/20 25 03/31/2025 CULTU RE: URINE result report SEE RESULT S BELOW Test: Cultu re: Urine Speci men Sourc e: Urine Voide d Speci men Type: Urine Speci men Date: 1710 Resul t Date: 6 Resul t Statu s: Final resul t Abnor mal: No Resul ting Lab: [facility] [address] [facility] [address] Tel: [phone] CULTU RE ----- ----- ----- --- Cultu re resul t (>=3 organ isms prese nt) indic ates possi ble conta minat ion. Repea t cultu re if sympt oms indic ate. Not Available [facility] (Lab) [address] [facility], [place], [address], 04/01/2025 23:59:19 03/31/20 25 03/31/2025 urina lysis , dipst ick Leukocytes +1 Not Available [address], [place], [address], 03/31/2025 09:23:13 03/31/20 25 03/31/2025 urina lysis , dipst ick Nitrite normal Not Available [facility] [address], [place], [address], 03/31/2025 09:23:13 03/31/20 25 03/31/2025 urina lysis , dipst ick Urobilinogen normal Not Available [facility] [address], [place], [address], 03/31/2025 09:23:13 03/31/20 25 03/31/2025 urina lysis , dipst ick Protein trace Not Available [facility] [address], [place], [address], 03/31/2025 09:23:13 03/31/20 25 03/31/2025 urina lysis , dipst ick pH 5 Not Available [facility] [address], [place], [address], 03/31/2025 09:23:13 03/31/20 25 03/31/2025 urina lysis , dipst ick Specific Allamuchy 1.020 Not Available [facility] [address], [place], [address], 03/31/2025 09:23:13 03/31/20 25 03/31/2025 urina lysis , dipst ick Ketone normal Not Available [facility] [address], [place], [address], 03/31/2025 09:23:13 03/31/20 25 03/31/2025 urina lysis , dipst ick Bilirubin normal [facility] [address], [place], [address], 03/31/2025 09:23:13 03/31/20 25 03/31/2025 urina lysis , dipst ick Glucose normal Not Available [facility] [address], [place], [address], 03/31/2025 09:23:13 03/31/20 25 03/31/2025 urina lysis , dipst ick Appearance normal Not Available [facility] [address], [place], [address], 03/31/2025 09:23:13 03/31/20 25 03/31/2025 urina lysis , dipst ick Color normal Not Available [facility] [address], [place], [address], 03/31/2025 09:23:13 04/01/20 25 04/01/2025 [facility] SWAB PLUS, DENIS bacterial vaginosis (bv), tma Negati ve negati ve Not Available [facility] (Lab) [address] [place] [place], [address], 04/02/2025 14:08:45 04/01/20 25 04/01/2025 [facility] SWAB PLUS, DENIS mekhi species, tma Negati ve negati ve Not Available [facility] (Lab) [address] [place] [place], [address], 04/02/2025 14:08:45 04/01/20 25 04/01/2025 WOMEN 'S HEALT H SWAB PLUS, DENIS mekhi glabrata, tma Negati ve negati ve Not Available [facility] (Lab) [address] [place], [address], 04/02/2025 14:08:45 04/01/20 25 04/01/2025 [facility] SWAB PLUS, DENIS trichomonas vaginalis, tma Negati ve negati ve Not Available [facility] (Lab) [address] [place], [address], 04/02/2025 14:08:45 04/01/20 25 04/01/2025 [facility] SWAB PLUS, DENIS chlamydia trachomatis, PCR Negati ve negati ve Not Available [facility] (Lab) [address] [place], [address], 04/02/2025 14:08:45 04/01/20 25 04/01/2025 [facility] SWAB PLUS, DENIS neisseria gonorrhoeae, [...] ded in this panel . Not Available [facility] (Lab) [address] [place], [address], 04/02/2025 14:08:45 04/22/2004/22/2025 CULTU RE: URINE result report SEE RESULT S BELOW Test: Cultu re: Urine Speci men Sourc e: Urine Voide d Speci men Type: Urine Speci men Date: 2024 1314 Resul t Date: 2024 0322 Resul t Statu s: Final resul t Abnor mal: No Resul ting Lab: [facility] [address] [facility] [address] Tel: CULTU RE ----- ----- ----- --- No growt h in 1 day (dete ction level of 10,00 0 colon ies / ml.) Not Available [facility] (Lab) [address], [place], [address], 04/24/2025 04:28:01 04/22/20 25 04/22/2025 urina lysis , dipst ick Leukocytes + Not Available [facility] [address], [place], [address], 04/22/2025 10:01:51 04/22/20 25 04/22/2025 urina lysis , dipst ick Protein + Not Available [facility] [address], [place], [address], 04/22/2025 10:01:51 04/22/20 25 04/22/2025 urina lysis , dipst ick pH 8 Not Available [facility] [address], [place], [address], 04/22/2025 10:01:51 04/22/20 25 04/22/2025 urina lysis , dipst ick Blood + Not Available [facility] [address], [place], [address], 04/22/2025 10:01:51 04/22/20 25 04/22/2025 urina lysis , dipst ick Specific [place]amuchy 1.010 Not Available [facility] [address], [place], [address], 04/22/2025 10:01:51 04/22/20 25 04/22/2025 urina lysis , dipst ick Ketone + Not Available [facility] [address], [place], [address], 04/22/2025 10:01:51 06/23/2006/23/2025 HEMAT OCRIT (HCT) HCT 35.6 % (based on docume nted legal sex) 34.0-4 5.0 Not Available [facility] (Lab) [address] [facility], [place], [address], 06/24/2025 11:45:32 06/23/20 25 06/23/2025 HEMOG LOBIN (HGB) HGB 11.1 g/dL (based on docume nted legal sex) 11.6-1 5.4 low Not Available [facility] (Lab) [address] [facility], [place], [address], 06/24/2025 11:45:32 06/23/20 25 06/23/2025 GTT - GESTA ROLAND L SCREE N, ACOG OB glucose, 1 hour screen 180 mg/dL 70-135 high Not Available [facility] (Lab) [address] [place], [address], 06/24/2025 11:45:33 06/23/20 25 06/23/2025 HIV 1/2 ANTIG EN/AN TIBOD Y, REFLE X CONFI RMATI ON HIV antigen/anti body Nonrea ctive nonrea ctive HIV-1 antig en and HIV-1 /HIV- 2 antib odies were not detec greg. No labor atory evide nce of HIV infec tion. Not Available [facility] (Lab) [address] [facility], [place], [address], 06/24/2025 11:45:33 06/23/20 25 06/23/2025 RPR SCREE N, REFLE X TITER /CONF IRMAT ION RPR qualitative Nonrea ctive nonrea ctive Not Available [facility] (Lab) [address] [facility], [place], [address], 06/24/2025 11:45:34 07/21/20 25 07/21/2025 CULTU RE: URINE result report SEE RESULT S BELOW Test: Cultu re: Urine Speci men Sourc e: Urine - Clean Catch Speci men Type: Urine Speci men Date: 2024 1024 Resul t Date: 2024 0252 Resul t Statu s: Final resul t Abnor mal: No Resul ting Lab: [facility] [address] [facility] [address] Tel: CULTU RE ----- ----- ----- --- No growt h in 1 day (dete ction level of 10,00 0 colon ies / ml.) Not Available [facility] (Lab) [address] [facility], [place], [address], 07/23/2025 03:57:01 07/21/20 25 07/21/2025 urina lysis , dipst ick Leukocytes ++ Not Available [address], [place], [address], 07/21/2025 11:03:04 07/21/20 25 07/21/2025 urina lysis , dipst ick Nitrite neg Not Available [facility] [address], [place], [address], 07/21/2025 11:03:04 07/21/20 25 07/21/2025 urina lysis , dipst ick Urobilinogen neg Not Available [facility] [address], [place], [address], 07/21/2025 11:03:04 07/21/20 25 07/21/2025 urina lysis , dipst ick Protein + Not Available [facility] [address], [place], [address], 07/21/2025 11:03:04 07/21/20 25 07/21/2025 urina lysis , dipst ick pH 5 Not Available [facility] [address], [place], [address], 07/21/2025 11:03:04 07/21/20 25 07/21/2025 urina lysis , dipst ick Specific [place]amuchy 1.030 Not Available [facility] [address], [place], [address], 07/21/2025 11:03:04 07/21/20 25 07/21/2025 urina lysis , dipst ick Ketone +++ Not Available [facility] [address], [place], [address], 07/21/2025 11:03:04 07/21/20 25 07/21/2025 urina lysis , dipst ick Bilirubin neg Not Available [facility] [address], [place], [address], 07/21/2025 11:03:04 07/21/20 25 07/21/2025 urina lysis , dipst ick Glucose neg Not Available [facility] [address], [place], [address], 07/21/2025 11:03:04 07/21/20 25 07/21/2025 urina lysis , dipst ick Appearance cloudy Not Available [facility] [address], [place], [address], 07/21/2025 11:03:04 07/21/20 25 07/21/2025 urina lysis , dipst ick Color dark Not Available [address], [place], [address], 07/21/2025 11:03:04 08/04/20 25 08/04/2025 CMP(C OMPRE HENSI VE METAB OLIC PANEL ) sodium 138 mmol/ L 133-14 6 Not Available [facility] (Lab) [address] [facility], [place], [address], 08/05/2025 13:39:18 08/04/20 25 08/04/2025 CMP(C OMPRE HENSI VE METAB OLIC PANEL ) potassium 4.0 mmol/ L 3.5-5. 1 Not Available [facility] (Lab) [address] [facility], [place], [address], 08/05/2025 13:39:18 08/04/20 25 08/04/2025 CMP(C OMPRE HENSI VE METAB OLIC PANEL ) chloride 105 mmol/ L 98-107 Not Available [facility] (Lab) [address] [facility], [place], [address], 08/05/2025 13:39:18 08/04/20 25 08/04/2025 CMP(C OMPRE HENSI VE METAB OLIC PANEL ) carbon dioxide 25 mmol/ L 21-31 Not Available [facility] (Lab) [address] [facility], [place], [address], 08/05/2025 13:39:18 08/04/20 25 08/04/2025 CMP(C OMPRE HENSI VE METAB OLIC PANEL ) anion gap 8 mmol/ L 4-13 Not Available [facility] (Lab) [address] [place], [address], 08/05/2025 13:39:18 08/04/20 25 08/04/2025 CMP(C OMPRE HENSI VE METAB OLIC PANEL ) blood urea nitrogen 10 mg/dL 7-25 Not Available [facility] (Lab) [address] [facility], [place], [address], 08/05/2025 13:39:18 08/04/20 25 08/04/2025 CMP(C OMPRE HENSI VE METAB OLIC PANEL ) creatinine 0.41 mg/dL 0.60-1 .30 low Not Available [facility] (Lab) [address] [facility], [place], [address], 08/05/2025 13:39:18 08/04/20 25 08/04/2025 CMP(C OMPRE HENSI VE METAB OLIC PANEL ) egfrcr (CKD-epi 2020) >90 mL/mi n/1.7 3_m2 >=60 Not Available [facility] (Lab) [address] [facility], [place], [address], 08/05/2025 13:39:18 08/04/20 25 08/04/2025 CMP(C OMPRE HENSI VE METAB OLIC PANEL ) calcium 8.9 mg/dL 8.3-10 .5 Not Available [facility] (Lab) [address] [facility], [place], [address], 08/05/2025 13:39:18 08/04/20 25 08/04/2025 CMP(C OMPRE HENSI VE METAB OLIC PANEL ) glucose 116 mg/dL 70-100 high Not Available [facility] (Lab) [address] [facility], [place], [address], 08/05/2025 13:39:18 08/04/20 25 08/04/2025 CMP(C OMPRE HENSI VE METAB OLIC PANEL ) protein, total 6.1 g/dL 6.4-8. 3 low Not Available [facility] (Lab) [address] [facility], [place], [address], 08/05/2025 13:39:18 08/04/20 25 08/04/2025 CMP(C OMPRE HENSI VE METAB OLIC PANEL ) albumin 3.5 g/dL 3.5-5. 0 Not Available [facility] (Lab) [address] [facility], [place], [address], 08/05/2025 13:39:18 08/04/20 25 08/04/2025 CMP(C OMPRE HENSI VE METAB OLIC PANEL ) ALT 11 units /L 9-43 Not Available [facility] (Lab) [address] [facility], [place], [address], 08/05/2025 13:39:18 08/04/20 25 08/04/2025 CMP(C OMPRE HENSI VE METAB OLIC PANEL ) alkaline phosphatase 98 units /L 34-104 Not Available [facility] (Lab) [address] [facility], [place], [address], 08/05/2025 13:39:18 08/04/20 25 08/04/2025 CMP(C OMPRE HENSI VE METAB OLIC PANEL ) AST 15 units /L 13-39 Not Available [facility] (Lab) [address] [facility], [place], [address], 08/05/2025 13:39:18 08/04/2008/04/2025 CMP(C OMPRE HENSI VE METAB OLIC PANEL ) bilirubin, total 0.3 mg/dL 0.2-1. 2 Not Available [facility] (Lab) [address] [facility], [place], [address], 08/05/2025 13:39:18 08/04/2008/04/2025 BILE ACIDS , TOTAL bile acids, total 4 umol/ L 0-10 Test Perfo rmed by: Luke hernández rn [facility] [address] Not Available [facility] (Lab) [address] [facility], [place], [address], 08/05/2025 13:39:19 03/02/20 25 03/02/2025 US, obste tric, nucha l trans lucen cy No observ ation record ed. [email or web address] [facility] [address], [place], [address], 03/02/2025 13:35:30 03/02/20 25 03/02/2025 US, obste tric, nucha l trans lucen cy No observ ation record ed. [email or web address] [facility] [address], [place], [address], 03/03/2025 14:08:39 03/08/20 25 03/08/2025 US, obste tric, 1st trime ster No observ ation record ed. [email or web address] [facility] [address], [place], [address], 03/08/2025 12:22:22 03/08/20 25 03/08/2025 US, obste tric, 1st trime ster No observ ation record ed. [email or web address] [facility] [address], [place], [address], 03/10/2025 15:03:13 04/01/20 25 03/24/2025 qamar r monit or No observ ation record ed. [address] [facility], [place], [address], 04/08/2025 12:36:45 04/01/20 25 03/22/2025 qamar r monit or No observ ation record ed. [address] (Pulmonary) [address] [place] [address] [place] [address], [address], 04/06/2025 08:59:34 04/20/20 25 04/20/2025 US, obste tric, limit ed No observ ation record ed. [email or web address] [facility] [address], [place], [address], 04/20/2025 17:39:30 04/20/20 25 04/20/2025 US, obste tric, follo w-up No observ ation record ed. [email or web address] [facility] [address], [place], [address], 04/23/2025 08:32:54 04/28/20 25 04/28/2025 US, obste tric, 2nd or 3rd trime ster No observ ation record ed. [email or web address] [facility] [address], [place], [address], 04/28/2025 17:48:42 04/28/20 25 04/28/2025 US, obste tric, 2nd or 3rd trime ster No observ ation record ed. [email or web address] [facility] [address], [place], [address], 05/04/2025 22:16:11 05/07/20 25 05/07/2025 non-s tress test No observ ation record ed. [email or web address] [id number] [facility] [address], [place], [address], 05/28/2025 13:33:54 05/21/2005/21/2025 CT, head + brain , w/o contr ast No observ ation record ed. [address], [place], [address], 05/24/2025 13:48:57 05/28/20 25 05/28/2025 US, obste tric, follo w-up No observ ation record ed. [email or web address] [facility] [address], [place], [address], 05/28/2025 17:32:34 05/28/2005/28/2025 US, obste tric, follo w-up No observ ation record ed. [email or web address] [facility] [address], [place], [address], 06/01/2025 15:13:13 08/12/06/07/2025 US, obste tric, follo w-up No observ ation record ed. [email or web address] [facility] [address] [facility], [place], [address], 06/15/2025 10:53:46 07/07/20 25 07/07/2025 US, obste tric, follo w-up No observ ation record ed. [email or web address] [facility] [address], [place], [address], 07/07/2025 13:18:01 07/07/2007/07/2025 US, obste tric, follo w-up No observ ation record ed. [email or web address] [facility] [address], [place], [address], 07/07/2025 11:29:37 08/04/20 25 08/04/2025 US, obste tric, follo w-up No observ ation record ed. [email or web address] [facility] [address], [place], [address], 08/04/2025 15:08:50 08/04/20 25 08/04/2025 US, obste tric, follo w-up No observ ation record ed. [email or web address] [facility] [address], [place], [address], 08/06/2025 10:41:50 08/11/2008/11/2025 non-s tress test No observ ation record ed. [email or web address] [facility] [address], [place], [address], 08/11/2025 17:37:52 08/11/20 non-s tress test No observ ation record ed. [email or web address] [facility] [address], [place], [address], 08/11/2025 17:38:11 08/15/2008/15/2025 non-s tress test No observ ation record ed. [place] [id number] [facility] [address], [place], [address], 08/21/2025 10:18:57 08/15/2008/15/2025 US, obste tric, bioph ysica l profi le No observ ation record ed. [place] [id number] [facility] [address], [place], [address], 08/17/2025 10:50:53 08/18/2008/18/2025 US, obste tric, bioph ysica l profi le + non-s tress test No observ ation record ed. [email or web address] [facility] [address], [place], [address], 08/18/2025 10:21:39 08/18/2008/18/2025 US, obste tric, bioph ysica l profi le + non-s tress test No observ ation record ed. [email or web address] [facility] [address], [place], [address], 08/18/2025 10:35:44 08/18/2008/18/2025 non-s tress test No observ ation record ed. [email or web address] [facility] [address], [place], [address], 08/18/2025 17:34:03 08/18/20 non-s tress test No observ ation record ed. [email or web address] [facility] [address], [place], [address], 08/18/2025 16:06:09 08/25/2008/25/2025 US, obste tric, bioph ysica l profi le + non-s tress test No observ ation record ed. [email or web address] [facility] [address], [place], [address], 08/25/2025 18:52:06 08/25/2008/25/2025 [place], obste tric, follo w-up No observ ation record ed. [email or web address] [address], [place], [address], 08/25/2025 15:47:28 08/25/20 25 08/25/2025 non-s tress test No observ ation record ed. [email or web address] [facility] [address], [place], [address], 08/25/2025 18:12:15 08/25/20 non-s tress test No observ ation record ed. [email or web address] [facility] [address], [place], [address], 08/25/2025 17:21:19 08/30/20 25 08/30/2025 non-s tress test No observ ation record ed. [email or web address] [address], [place], [address], 09/15/2025 15:26:49 09/01/20 25 09/01/2025 non-s tress test No observ ation record ed. [email or web address] [id number] [facility] [address], [place], [address], 09/13/2025 11:32:22 09/01/20 25 09/01/2025 [place], obste tric No observ ation record ed. [email or web address] [id number] [facility] [address], [place], [address], 09/02/2025 15:56:01 09/01/20 25 09/01/2025 non-s tress test No observ ation record ed. [email or web address] [id number] [facility] [address], [place], [address], 09/02/2025 14:32:38 09/16/2021 0909/16/2025 CT, angio gram, head + neck, w/ contr ast No observ ation record ed. [email or web address] [facility] [address], [place], [address], 09/16/2025 20:01:05 09/28/20 25 09/28/2025 non-s tress test No observ ation record ed. [email or web address] [facility] [address], [place], [address], 10/04/2025 16:42:40 Result Notes None recorded. Problems Name Problem SNOMED Code Status Onset Date Resolution Date Notes Provider Name and Address Organization Details Recorded Time Hypereme sis 393540153 Completed phenerga n now prn Asia ramos [facility] 2 16:43:51 Anxiety in pregnanc y 5137705492 9109 Completed will continue to monitor Asia ramos [facility] 2 16:43:51 Past pregnanc y history of gestatio nal diabetes mellitus 016442995 Completed Early 1 hr GTT @ 20wks 11/03 APPT Asia ramos [facility] 2 16:43:51 Spinal muscular atrophy 8250181 Completed Carrier - Not in contact with FOB. Asia ramos [facility] 2 16:43:51 Anxiety 72028428 Completed prozac Karina ramos [facility] 4 11:00:46 Nausea 370085207 Completed d/c zofran pump 11/08 per pt request Karina ramos [facility] 4 11:00:46 Postpart um hemorrha ge 53030597 Completed 2017 with d&c Karina ramos [facility] 4 11:00:46 Normal pregnanc y in gracegra jessy 3899435228 31888 Completed 201907/05/2021 Encounte r for supervis ion of other normal pregnanc y, 3rd trimeste r;Record ed Elsewher e: No Locat ion: [facility] S ource: EHR Garment Alteration Examiner yvrose: N Natalyati ce ID: 0001 Gigi lable Time: 10:45:00 AM Karina ramos [facility] 1 10:15:27 Gestatio n period, 37 weeks 55366291 Completed 201907/05/2021 37 weeks gestatio n of pregnanc y;Record ed Elsewher e: No Locat ion: [facility] S ource: EHR Garment Alteration Examiner yvrose: N Natalyati ce ID: 0001 Gigi lable Time: 09:00:00 AM Karina ramos [facility] 10:15:[address] Concept Completed 201907/05/2021 Matern care for abnlt fetl hrt rate or rhym, 3rd tri, unsp;Rec orded Elsewher e: No Locat ion: [facility] S ource: EHR Garment Alteration Examiner yvrose: N Natalyati ce ID: 0001 Gigi lable Time: 08:45:00 AM Karina ramos [facility] 10:15:29 Gestatio nal diabetes mellitus 65802300 Completed 201907/05/2021 Gestatio nal diabetes mellitus in pregnanc y, diet controll ed;Recor ded Elsewher e: No Locat ion: [facility] S ource: EHR Garment Alteration Examiner yvrose: N Natalyati ce ID: 0001 Gigi lable Time: 11:45:00 AM Karina ramos [facility] 10:15:25 Gestatio n period, 38 weeks 99448260 Completed 201907/05/2021 38 weeks gestatio n of pregnanc y;Record ed Elsewher e: No Locat ion: Griceldaeda anna [facility] S ource: EHR Garment Alteration Examiner yvrose: N Practi ce ID: 0001 Gigi lable Time: 11:30:00 AM Karina ramos, [facility] 10:15:13 Amenorrh ea 70905118 Completed 202007/10/2021 Tammi Jones null, [facility] 13:08:35 Pregnanc y 97989190 Completed 202003/29/2022 Emma Dykes [facility], [facility] 12:28:48 Pregnanc y 74654528 Completed 202304/22/2024 Emma ramos, [facility] 12:28:48 Headache 60045912 Active 2023 Karina Burroughs null, [facility] 16:19:28 Pregnanc y 15960351 Completed 202309/14/2025 Emma Dykes [facility], [facility] 12:28:48 Uncompli cated moderate persiste nt asthma 004784383 Completed 2024 albutero l prn Shawn Bradley MD [address], [place], [address], [facility] 13:08:36 Anxiety 12958426 Completed 2024 sertrali ne started 03/02/25 changed to prozac 10 on Shawn Bradley MD [address], [place], [address], [facility] 5 17:05:48 Nausea and vomiting 73399504 Completed 2024 Shawn Bradley MD [address], [place], [address], [place] [facility] 5 13:20:27 Placenta circumva llata 9377601 Completed 2024 32wk [facility] 09:44:35 Frequent headache 264259002 Completed 2024 transpor t to [facility] 05/21, discharg e 05/23 MFM referral faxed 05/24 [facility]AJAL Pitt[facility] [...] more than 2-3 times a week. [facility] 10:55:26 Abnormal placenta affectin g manageme nt of mother 00344944 Completed 2024 MCI serial growth [facility] 10:46:25 Iron deficien cy anemia 47368516 Completed 2024 SS MFM tx venofer 200mg x1 HGB 10.6 [facility] 15:21:25 Gestatio nal diabetes mellitus 77620208 Completed 2024 checking bs QID - ruled in GDM Referral fax[facility] to [facility] 07[facility]07 [facility] 14:36:52 Notes:Order faxed to [facility] access 08/10 for PICC line, and home health already caring for pt. Vladimir RDZ at [phone] Problem Notes None recorded. Procedures Surgical History Date Name Laterality Status Provider Name and Address Organization Details Recorded Time 025 SALPINGECTOMY, LAPAROSCOPIC (SURG) completed Not Available [facility] 09/06/2025 11:19:17 025 Date of Last Pap Smear completed Karina Burroughs [facility] 01/28/2025 11:19:42 024 Nexplanon Removal completed Shawn Bradley MD [address], [place], [address], [facility] 08/05/2024 15:09:58 024 Control Implant Insertion completed Anju Mcnamara CNM [address], [place], [address], [facility] 05/08/2024 17:59:34 024 cholecystectomy completed Karina Burroughs [facility] 03/31/2025 09:18:57 018 Dilation and Curettage completed Karina Burroughs [facility] 07/05/2021 10:17:50 Imaging Results None recorded. Procedure Notes None recorded. Medical Equipment None Reported. Allergies Allergen ID Allergen Name Allergen Category Reaction Reaction Severity Criticality Documentation Date Start Date Code Code System Note Provider Name and Address Organization Details Recorded Time 69291 terbutali ne medicatio n anaphylax is Not available Not available 01/27/20252021 20288 RxNorm Karina ramos, [facility] 16:19:27 54081 amoxicill in medicatio n Not available Not available Not available 09/10/2025 723 RxNorm Not Available [employer] - prod 16:39:37 40868 terbinafi ne medicatio n anaphylax is Not available [facility] 09/10/20252024 57750 RxNorm Not Available [employer] - prod 16:40:54 Medications Name [...] Not Available cyclobenz aprine 5 mg tablet 03/20 /2025 completed Not Available [...] Prescrib ed Elsewher e: Yes Loca tion: [facility] odify By: prabhjot Lee r DateTime [...] n (supplie d by office) insert lot [id number] Exp 01/2026 Not Available Not Available Not Available 28 mg iron-800 mcg tablet 07/05 completed Prescrib ed Elsewher e: Yes Loca tion: [facility]ify By: prabhjot Lee r DateTime : 01/14/20 10:45:00 AM Not Available Not Available Not Available lidocaine 5 % topical ointment APPLY OINTMENT EXTERNAL LY TO RIBS THREE TIMES DAILY NEEDED 01/14 completed Not Available Not Available Not Available 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 08/25/2025 15:41:08 Date Recorded Body height Body mass index (BMI) Body weight Systolic And Diastolic Provider Name and Address Organization Details Last Updated DateTime 08/25/2025 162.56 cm 31.6 kg/m2 06819 g 108/72 mm[Hg] Emma Dykes [facility] 08/25/2025 17:18:37 Social History Question Answer Notes LastModified by Organizat ion Details LastModified Time Tobacco Smoking Status Former Smoker Karina ramos, [facility] 07/05/2021 09:06:21 If You Are , What Was Your Level Of Alcohol Consumption Prior To ? Occasional [email or web address] Information not available 03/31/2025 Are You Blind Or Do You Have Difficulty Seeing? No [email or web address] Information not available 07/05/2021 What Is Your Level Of Caffeine Consumption? Heavy [email or web address] Information not available 07/05/2021 In The 14 Days Before Symptom Onset, Have You Had Close Contact With A Laboratory-confir med COVID-19 While That Case Was Ill? No [email or web address] Information not available 07/05/2021 In The 14 Days Before Symptom Onset, Have You Had Close Contact With A Person Who Is Under Investigation For COVID-19 While That Person Was Ill? No [email or web address] Information not available 07/05/2021 Have You Been To An Area Known To Be High Risk For COVID-19? No [email or web address] Information not available 07/05/2021 Are You Deaf Or Do You Have Serious Difficulty Hearing? No [email or web address] Information not available 07/05/2021 What Type Of Diet Are You Following? REGULAR [email or web address] Information not available 07/05/2021 Which Illicit Or Recreational Drugs Have You Used? Marijuana [email or web address] Information not available 07/05/2021 Have You Ever Been Counseled For Unhealthy Alcohol Use? No [email or web address] Information not available 07/05/2021 Do You Use Your Seat Belt Or Car Seat Routinely? Yes [email or web address] Information not available 07/05/2021 Do You Have Smoke And Carbon Monoxide Detectors In Your Home? Yes [email or web address] Information not available 07/05/2021 Do You Use Sunscreen Routinely? Yes Information not available 07/05/2021 Has Tobacco Cessation Counseling Been Provided? No [email or web address] Information not available 07/05/2021 Have You Used IV Drugs? No Information not available 07/05/2021 Do You Have Difficulty Walking Or Climbing Stairs? No [email or web address] Information not available 12/06/2021 Sex: Unknown Functional Status Question Answer Note LastModified by Organizat ion Details LastModified Time Do you use any illicit or recreational drugs? Yes [email or web address] Information not available 07/05/2021 Do you or have you ever used any other forms of tobacco or nicotine? Yes [email or web address] Information not available 07/05/2021 What is your level of alcohol consumption? None [email or web address] Information not available 03/31/2025 Do you or have you ever used smokeless tobacco? Never used smokeless tobacco [email or web address] Information not available 07/05/2021 Are you able to walk independently without assistance or assistive devices? YESWOREST [email or web address] Information not available 07/05/2021 Are you able to care for yourself independently? Yes [email or web address] Information not available 12/06/2021 Do you have difficulty dressing, bathing, grooming, or toileting? No [email or web address] Information not available 12/06/2021 Do you or have you ever used e-cigarettes or vape? Current user of electronic cigarettes [email or web address] Information not available 07/05/2021 What is your exercise level? Occasional [email or web address] Information not available 07/05/2021 Mental Status Question Answer Note LastModified by Organization D etails LastModified Time Do you feel stressed (tense, restless, nervous, or anxious, or unable to sleep at night)? [id number] Information not available 07/05/2021 Family History Relationship Description Onset Age of this Age Resolved Age Notes LastModified by Organization Details LastModified Time Father No current problems or disability [email or web address] Not available 05/2021 09:06:31 Mother No current problems or disability [email or web address] Not available 05/2021 09:06:31 Medical History Condition [...] ICD10 Code Diagnosis IMO Codes Diagnosis Note [id number] Shawn Bradley MD [facility] [address] [address] 08/04/2025 14:02:59 08/04/2025 15:06:33 Gestational diabetes mellitus 58684371 O24.410 O43.103 O43.113 Z3A.34 21680321 [id number] Anju Mcnamara [place] [address] [place] [address] 08/04/2025 14:21:57 08/04/2025 15:26:03 Gestation period, 34 weeks 53008500 Z3A.34 5638056 Pruritic d isorder of skin 0754807938 L29.9 74187 plan labs today, ursadiol BID [id number] Anju Mcnamara [facility] [address] [place] [address] 08/11/2025 14:51:38 08/11/2025 17:16:44 Gestational diabetes mellitus 08700812 O24.414 29452979 [id number] [facility] [address] [place] [address] 08/11/2025 16:25:59 08/11/2025 17:46:32 Gestational diabetes mellitus 93714997 O24.414 47415170 [id number] Shawn Bradley MD [facility] [address],[place] [address] 08/18/2025 09:40:51 08/18/2025 10:15:47 Gestational diabetes mellitus 97727711 O24.414 Z3A.36 77635542 [id number] Anju Mcnamara [facility] [address],[place] [address] 08/18/2025 09:41:06 08/18/2025 11:24:04 Gestation period, 36 weeks 52416658 Z3A.36 7960985 cont pnv [id number] [facility] [address],[place] [address] 08/18/2025 09:41:16 08/18/2025 16:17:31 Gestational diabetes mellitus class A2 81013491 O24.414 73550008 [id number] Shawn Bradley MD [facility] [address],[place] [address] 08/25/2025 14:26:29 08/25/2025 15:14:02 Gestational diabetes mellitus 73642744 O24.414 20485111 [id number] [facility] [address],[place] [address] 08/25/2025 14:26:57 08/25/2025 15:53:52 Gestation period, 37 weeks 98033022 Z3A.37 8737016 continue vitamin [id number] [facility] [address] [place] [address] 08/25/2025 16:48:00 08/25/2025 17:20:42 Gestational diabetes mellitus 51578103 O24.419 81414024 Health Concerns Section Related Observation LastModified by Organization Detai ls LastModified Time None Recorded Concern Status LastModified by Organization Details LastModified Time None Recorded Payers Encounter Date Sequence Insurance Name Policy Number Policy Roberts Covered Member ID Roberts Member ID Guarantor Name 08/25/2025 1 [facility] (MEDICAID HMO) [id number] Yuni Mejia [id number] Yuni Mejia Notes Date Note Type Note Provider Name and Address Organization Details Recorded Time 08/25/2025 text/html Generic HPI TemplateReported by Patient Anju EHilda Mcnamara CNM [address], [place], [address], [facility] 08/25/2025 15:51:24 OBGyn Episode Ob Episode Information Episode Created Date Number of Fetuses Patient Bloodtype Patient rh Status Prepregnancy Weight lbs Domestic Partner Domestic Partner Phone Father Name Optoelectronics Engineer Status 03/02/20 25 1 B Positive 164 CLOSED Fetus Data First Name Last Name Admitted to NICU Weight (g) Sex Living Outcome Pediatric Complications Fetus ID Race Codes Race Delivery Type Ziah false 4025.62 9 F true Full Term 80277 Vaginal Delivery Problems Problem Notes SDH form completed 5GI consult Tachycardia Holter monitor 72 order- pt sent back on 03-27-25 Cardiology referral faxed per Dr Martínez office calling pt 04/21 to schedule consult scheduled 05/11 11:15AM Problem Name Start Date End Date Resolution Snomed Code Not e Uncomplicated moderate persistent asthma 03/02/2025 713126162 albuterol prn Abnormal placenta affecting management of mother 05/04/2025 91470945 MCI serial grow th us Iron deficiency anemia 05/25/2025 68611526 [facility] M[facility] tx [place] 200mg x1 HGB 10.6 Nausea and vomiting 03/02/2025 78425093 Anxiety 03/02/2025 84115593 sertralin e started 03/02/25 changed to prozac 10 on Gestational diabetes mellitus 07/08/2025 64112869 checking bs QID - ruled in GDM Referral faxed to [facility] 07/07 Frequent headache 05/03/2025 574643149 t r[place] to [facility] 05/21, discharge 05/23 MFM referral faxed 05/24 [facility] consult pending per KAJAL Pittman [facility] unable to see pt due to insurance M [facility] 07/05/25 Level US & Consult (see [facility] consult zayas recommendations ) regimen prn Imitrex 50mg for acute migraine, vitamin B2 (Riboflavin) 400mg, Coenzyme q10 300mg and magnesium oxide 200 to 600mg daily. minimize use of Excedrin or Tylenol to no more than 2-3 times a week. 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/2025 3973760 32wk growth us Jun Calculation Initial Jun [...] Weight in lbs Pre/Post Dialysis Refused Weight 158.634532340286 BP Diastolic BP Location Tested BP Systolic [...] Weight in lbs Pre/Post Dialysis Refused Weight 158.551457419689 BP Diastolic BP Location Tested BP Systolic [...] Weight in lbs Pre/Post Dialysis Refused Weight 162.396938195240 BP Diastolic BP Location Tested BP Systolic BP Type 78 123 Fetus Heart Rate Present A 148 Fetus Movement A Yes Comments Patient is having having ronny n, cramping and vaginal discharge. went to ed exam done cultures and rx sent, ?FM, await cardiac rehabilitation specialist results rfilled zofran, precautions and education [...] Type Weight in lbs Pre/Post Dialysis Refused 168.738717634810 BP Diastolic BP Location Tested BP Systolic [...] Type Weight in lbs Pre/Post Dialysis Refused 169.233747336799 BP Diastolic BP Location Tested BP Systolic [...] Weight in lbs Pre/Post Dialysis Refused Weight 175.820777053317 BP Diastolic BP Location Tested BP Systolic [...] Weight in lbs Pre/Post Dialysis Refused Weight 182.573096741607 BP Diastolic BP Location Tested BP Systolic [...] Weight in lbs Pre/Post Dialysis Refused Weight 181.915815764137 BP Diastolic BP Location Tested BP Systolic BP Type 73 L arm 131 sitting Fetus Heart Rate Present Fetus Movement A Yes Comments viral URI testied neg at urg ent care, nausea resolved, efw 68%, +FM plan education and precautions f/u 2 weeks diagnosed GDM, plan car salesman, gave list reviewed protein vs carb Flowsheet Date 07/21/2025 Gibson Score Blood Edema Fundus Height Fundus Units Glucose Ketones Leukocytes Nitrite Labor Signs Protein Cervic Dilation Cervic Effacement Cervic Station Type Weight in lbs Pre/Post Dialysis Refused Weight 181.790989275354 BP Diastolic BP Location Tested BP Systolic BP Type 78 L arm 127 sitting Fetus Heart Rate Present A 150 Fetus Movement A Yes Comments rpt urine culture +FM review ed blood sugars, meets with car salesman today, precautions and education f/u 2 weeks [...] Weight in lbs Pre/Post Dialysis Refused Weight 181.069031479912 BP Diastolic BP Location Tested BP Systolic [...] Weight in lbs Pre/Post Dialysis Refused Weight 183.650796574853 BP Diastolic BP Location Tested BP Systolic [...] Type Weight in lbs Pre/Post Dialysis Refused 184.967113032914 BP Diastolic BP Location Tested BP Systolic [...] Type Weight in lbs Pre/Post Dialysis Refused 184.065260195567 BP Diastolic BP Location Tested BP Systolic [...] Type Weight in lbs Pre/Post Dialysis Refused 184.767719001569 BP Diastolic BP Location Tested BP Systolic [...] Weight in lbs Pre/Post Dialysis Refused Weight 184.726220660808 BP Diastolic BP Location Tested BP Systolic [...] Weight in lbs Pre/Post Dialysis Refused Weight 164.319688490694 BP Diastolic BP Location Tested BP Systolic [...]
--- OUTSIDE RECORDS SUMMARY | 2025-10-27 12:14 | XMS_ITS ---
Author Organization Unknown Address [address] [place] [address] [phone] Phone Care Team Providers Care Concrete Pipe Maker Name Role Phone ABDIAS EDMONDS Attending Unavailable [...] RSV PCR - Collect Date/Time: 05/14/2024 11:48 [facility] ID: [id number] [place], [place], [id number] LOINC: 25742-9 Test Value Unit Reference Range Code Code System Flag SARS CoV2 PCR NEGATIVE FLU A PCR NEGATIVE FLU B PCR NEGATIVE RSV PCR NEGATIVE SEND TO [facility]? NO GROUP A STREP BY PCR - Colle ct Date/Time: 05/14/2024 11:48 [facility] ID: [id number] [id number] [place], [place], [id number] LOINC: 05331-9 Test Value Unit Reference Range Code Code System Flag GRP A STREP PCR NEGATIVE NORMAL: NEGATIVE Social History Type Status Start Date End Date Code Code Syst em Smoking History Never smoker (Never Smoked) 311207357 SNOMED CT Sex Female Assessment You had [...] 6002 SNOMED-CT UNSPECIFIED ABDOMINAL PAIN active 215 51989 SNOMED-CT Allergies and Adverse Reactions Allergy Substance Reaction Severity Start Date Concern Status Co de Code System AMOXICILLIN Active 723 RxNorm TERBUTALINE Active 14815 RxNorm Plan of Treatment Stress Test Treadmill 01/21/2025 Field Geologist Consult 04/27/2025 Encounters Encounter Diagnosis Start Date [...]
--- OUTSIDE RECORDS SUMMARY | 2025-10-27 12:14 | XMS_ITS | Encounter Summary ---
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 [address] PCP - General Family Medicine 12/31/24 documented as of this encounter
--- OUTSIDE RECORDS SUMMARY | 2025-10-27 12:14 | XMS_ITS ---
Author Organization Unknown Address [id number] [place] [phone] Phone Care Team Providers Care Child Care Group Leader Name Role Phone ANNABELLE GONZALEZ Attending Unavailable [...] DIFF - Collect Date/T randall: 06/25/2024 08:22 [facility] ID: [id number] [address] [place], [place], [phone] LOINC: 50454-6 Test Value Unit Reference Range Code Code System Flag WBC 14.4 10^3uL L=4.8 H=10.8 H RBC 4.94 10^6uL L=4.20 H=5.40 HEMOGLOBIN 12.8 g/dL L=12.0 H=16.0 718-7 LOINC HEMATOCRIT 40.8 VOL% L=37.0 H=47.0 4544-3 LOINC MCV 82.6 fL L=81.0 H=99.0 MCH 25.9 pg L=27.0 H=32.0 L MCHC 31.4 g/dL L=32.0 H=36.0 L PLATELETS 329 10^3uL L=100 H=400 62446-1 LOINC RDW 14.0 % L=11.7 H=15.5 %GRAN 75.9 % L=40.0 H=70.0 73047-1 LOINC H %LYMPH 14.7 % L=20.0 H=45.0 736-9 LOINC L %MONO 8.6 % L=2.0 H=10.0 26711-7 LOINC %EOS 0.1 % L=0.0 H=6.0 713-8 LOINC %BASO 0.1 % L=0.0 H=3.0 706-2 LOINC #NEUT 10.9 10^3uL L=1.9 H=7.6 48436-7 LOINC H #LYMPH 2.1 10^3uL L=0.9 H=4.9 24182-4 LOINC #MONO 1.2 10^3uL L=0.1 H=0.9 92177-8 LOINC H #EOS 0.0 10^3uL L=0.0 H=0.6 712-0 LOINC #BASO 0.02 10^3uL L=0.00 H=0.10 31743-0 LOINC #IM GRANS 0.1 10^3uL L=0.0 H=7.0 79075-2 LOINC %IM GRANS 0.6 % L=0.0 H=5.0 62223-6 LOINC %NRB 0.0 L=0.0 H=0.2 10485-4 LOINC #NRB 0.000 L=0.000 H=0.012 38124-3 LOINC MANUAL DIFF NOT INDICATED RBC MORPH NOT INDICATED COMPREHENSIVE METABOLIC PANE L - Collect Date/Time: 06/25/2024 08:22 [facility] ID: [id number] [address] [place], [place], [phone] LOINC: 67072-4 Test Value Unit Reference Range Code Code [...] 2028-9 LOINC ANION GAP 14 L=10 H=20 00728-8 LOINC OSMOLALITY 289 mOs/kG L=280 H=296 55975-2 LOINC BUN/CREAT 20.0 3097-3 LOINC CALCIUM 9.4 mg/dL L=8.3 H=10.5 21566-1 LOINC AST 24 U/L L=15 H=46 1920-8 LOINC ALT 21 U/L L=9 H=72 1742-6 LOINC ALKALINE PHOS 87 U/L L=38 H=126 6768-6 LOINC TOTAL BILI 0.4 mg/dL L=0.2 H=1.3 1975-2 LOINC ALBUMIN 4.5 G/dL L=3.5 H=5.0 1751-7 LOINC TOTAL PROTEIN 7.8 g/L L=6.3 H=8.2 2885-2 LOINC A/G RATIO 1.4 47034-7 LOINC AGE 24 03279-4 LOINC eGFR NON-AFR 108 ml/min eGFR AFR AMER 131 ml/min TROPONIN LEVEL - Collect Neil e/Time: 06/25/2024 08:22 [facility] ID: [id number] [address] [place] [address], [phone] LOINC: 64337-2 Test Value Unit Reference Range Code Code System Flag TROPONIN < 0.012 ng/mL L=0.000 H=0.033 65751-7 LOINC RESPIRATORY PATHOGEN PANEL + SARS PCR - Collect Date/Time: 06/25/2024 08:17 [facility] ID: [id number] [address] [place] [address], [phone] LOINC: 38198-0 Test Value Unit Reference Range Code Code System Flag ADENOVIRUS NOT DETECTED NORMAL: NOT DETECTED 5778-6 LOINC CORONAVIRUS 229E NOT DETECTED NORMAL: NOT DETECTED 5778-6 LOINC CORONAVIRUS HKU1 NOT DETECTED NORMAL: NOT DETECTED 5778-6 [facility]ON[facility] NL63 NOT DETECTED NORMAL: NOT DETECTED 5778-6 [facility] OC43 NOT DETECTED NORMAL: NOT DETECTED 5778-6 [facility] CORONAVIRUS COVID-19 NOT DETECTED NORMAL: NOT DETECTED 79014-6 LOINC H METAPNEUMOVIRUS NOT DETECTED NORMAL: NO [...] NORMAL: NOT DETECTED 5778-6 LOINC SEND TO [facility]? YES GROUP A STREP BY PCR - Colle ct Date/Time: 06/25/2024 08:17 [facility] ID: [id number] [address] [place], [place], [phone] LOINC: 55192-2 Test Value Unit Reference Range Code Code [...] David Wolf M.D. AM: AM Report ID: [id number] Reading Location: [id number] Social History Type Status Start Date End Date Code Code Syst em Smoking History Never smoker (Never Smoked) 619590058 SNOMED CT Sex Female Assessment You had [...] 6002 SNOMED-CT UNSPECIFIED ABDOMINAL PAIN active 215 86059 SNOMED-CT Allergies and Adverse Reactions Allergy Substance Reaction Severity Start Date Concern Status Co de Code System AMOXICILLIN Active 723 RxNorm TERBUTALINE Active 46511 RxNorm Plan of Treatment Stress Test Treadmill 01/21/2025 Dry Drug Worker Consult 04/27/2025 Encounters Encounter Diagnosis Start [...]
--- OUTSIDE RECORDS SUMMARY | 2025-10-27 12:14 | XMS_ITS | Continuity of Care Document ---
Author Organization [facility], [facility] Address [address] [place] [address] [place] [address] Care Team Providers Care Consumer Analyst Name Role Phone CARLOS ESTRADA Primary Care Provider [phone] Assessment No assessment recorded. Plan of Treatment Reminders Order Date Submit Date Provider Last Modified By Organization Details Last Modified Time Details Appointments None recorded. Lab None recorded. Referral None recorded. Procedures None recorded. Surgeries None recorded. Imaging US, obstetric, biophysical profile + non-stress test 2024 025 [email or web address] [address], [address], [place], [address], 10:41:20 Medication Orders None recorded. Patient TargetsNo targets recorded. Patient InstructionsNo instructions recorded. Reason for Referral None Reported. 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 DETECT ED normal Not Available [facility] [address], [place], [address], 03/06/2025 03:58:26 03/06/20 25 03/06/2025 [UNIT Y] ANEUP LOIDY NIPT monosomy X LOW RISK <1 in 10,000 normal Not Available [facility] [address], [place], [address], 03/06/2025 03:58:26 03/06/20 25 03/06/2025 [UNIT Y] ANEUP LOIDY NIPT trisomy 13 LOW RISK <1 in 10,000 normal Not Available [facility] [address], [place], [address], 03/06/2025 03:58:26 03/06/20 25 03/06/2025 [UNIT Y] ANEUP LOIDY NIPT trisomy 18 LOW RISK <1 in 10,000 normal Not Available [facility] [address], [place], [address], 03/06/2025 03:58:26 03/06/20 25 03/06/2025 [UNIT Y] ANEUP LOIDY NIPT trisomy 21 LOW RISK <1 in 10,000 normal Not Available [facility] [address], [place], [address], 03/06/2025 03:58:26 03/06/20 25 03/06/2025 [UNIT Y] ANEUP LOIDY NIPT sex FEMALE normal Not Available [facility] [address], [place], [address], 03/06/2025 03:58:26 03/06/20 25 03/06/2025 [UNIT Y] ANEUP LOIDY NIPT gestation SINGLE TON normal Not Available [facility] [address], [place], [address], 03/06/2025 03:58:26 03/06/20 25 03/06/2025 [UNIT Y] ANEUP LOIDY NIPT for detailed report, see pdf See PDF normal Not Available [facility] [address], [place], [address], 03/06/2025 03:58:26 03/02/2003/02/2025 CULTU RE: URINE result report SEE RESULT S BELOW Test: Cultu re: Urine Speci men Sourc e: Urine - Clean Catch Speci men Type: Urine Speci men Date: 025 1455 Resul t Date: 025 2138 Resul t Statu s: Final resul t Abnor mal: No Resul ting Lab: [facility] [address] [facility] [address] Tel: CULTU RE ----- ----- ----- --- No growt h in 1 day (dete ction level of 10,00 0 colon ies / ml.) Not Available [facility] (Lab) [address] [facility], [place], [address], 03/03/2025 22:42:27 03/12/2003/12/2025 CULTU RE: URINE result report SEE RESULT S BELOW Test: Cultu re: Urine Speci men Sourc e: Urine - Clean Catch Speci men Type: Urine Speci men Date: 2024 1600 Resul t Date: 2024 0610 Resul t Statu s: Final resul t Abnor mal: No Resul ting Lab: [facility] [address] [facility] [address] Tel: CULTU RE ----- ----- ----- --- No growt h in 1 day (dete ction level of 10,00 0 colon ies / ml.) Not Available [facility] (Lab) [address] [place], [address], 03/14/2025 07:15:03 03/12/2003/12/2025 urina lysis , dipst ick Leukocytes ++ Not Available [address], [place], [address], 03/12/2025 16:45:06 03/12/2003/12/2025 urina lysis , dipst ick Protein + Not Available [address], [place], [address], 03/12/2025 16:45:06 03/12/20 25 03/12/2025 urina lysis , dipst ick pH 5 Not Available [address], [place], [address], 03/12/2025 16:45:06 03/12/20 25 03/12/2025 urina lysis , dipst ick Blood trace Not Available [address], [place], [address], 03/12/2025 16:45:06 03/12/20 25 03/12/2025 urina lysis , dipst ick Specific [place] 1.015 Not Available [facility] [address], [place], [address], 03/12/2025 16:45:06 03/12/20 25 03/12/2025 urina lysis , dipst ick Ketone +++ Not Available [address], [place], [address], 03/12/2025 16:45:06 03/31/20 25 03/31/2025 TSH, REFLE X FREE T4 TSH 0.42 uIU/m L 0.30-5 .33 Not Available [facility] (Lab) [address] [facility], [place], [address], 04/01/2025 03:05:12 03/31/20 25 03/31/2025 CULTU RE: URINE result report SEE RESULT S BELOW Test: Cultu re: Urine Speci men Sourc e: Urine Voide d Speci men Type: Urine Speci men Date: 1710 Resul t Date: 6 Resul t Statu s: Final resul t Abnor mal: No Resul ting Lab: [facility] [address] [facility] [address] Tel: CULTU RE ----- ----- ----- --- Cultu re resul t (>=3 organ isms prese nt) indic ates possi ble conta minat ion. Repea t cultu re if sympt oms indic ate. Not Available [facility] (Lab) [address] [facility], [place], [address], 04/01/2025 23:59:19 03/31/20 25 03/31/2025 urina lysis , dipst ick Leukocytes +1 Not Available [address], [place], [address], 03/31/2025 09:23:13 03/31/20 25 03/31/2025 urina lysis , dipst ick Nitrite normal Not Available [address], [place], [address], 03/31/2025 09:23:13 03/31/20 25 03/31/2025 urina lysis , dipst ick Urobilinogen normal Not Available [facility] [address], [place], [address], 03/31/2025 09:23:13 03/31/20 25 03/31/2025 urina lysis , dipst ick Protein trace Not Available [address], [place], [address], 03/31/2025 09:23:13 03/31/20 25 03/31/2025 urina lysis , dipst ick pH 5 Not Available [address], [place], [address], 03/31/2025 09:23:13 03/31/20 25 03/31/2025 urina lysis , dipst ick Specific [place] 1.020 [facility] Available [facility] [address], [place], [address], 03/31/2025 09:23:13 03/31/20 25 03/31/2025 urina lysis , dipst ick Ketone normal Not Available [address], [place], [address], 03/31/2025 09:23:13 03/31/20 25 03/31/2025 urina lysis , dipst ick Bilirubin normal Not Available [facility] [address], [place], [address], 03/31/2025 09:23:13 03/31/20 25 03/31/2025 urina lysis , dipst ick Glucose normal Not Available [address], [place], [address], 03/31/2025 09:23:13 03/31/20 25 03/31/2025 urina lysis , dipst ick Appearance normal Not Available [facility] [address], [place], [address], 03/31/2025 09:23:13 03/31/20 25 03/31/2025 urina lysis , dipst ick Color normal Not Available [address], [place], [address], 03/31/2025 09:23:13 04/01/20 25 04/01/2025 [facility] DENIS bacterial vaginosis (bv), tma Negati ve negati ve Not Available [facility] (Lab) [address] [place], [address], 04/02/2025 14:08:45 04/01/20 25 04/01/2025 [facility], DENIS mekhi species, tma Negati ve negati ve Not Available [facility] (Lab) [address] [facility] [place], [address], 04/02/2025 14:08:45 04/01/20 25 04/01/2025 WOMEN 'S HEALT H SWAB PLUS, DENIS mekhi glabrata, tma Negati ve negati ve Not Available [facility] (Lab) [address] [place], [address], 04/02/2025 14:08:45 04/01/20 25 04/01/2025 [facility], DENIS trichomonas vaginalis, tma Negati ve negati ve Not Available [facility] (Lab) [address] [facility], [place], [address], 04/02/2025 14:08:45 04/01/20 25 04/01/2025 [facility], DENIS chlamydia trachomatis, PCR Negati ve negati ve Not Available [facility] (Lab) [address] [place], [address], 04/02/2025 14:08:45 04/01/20 25 04/01/2025 [facility], DENIS neisseria gonorrhoeae, [...] ded in this panel . Not Available [facility] (Lab) [address] , [place], [address], 04/02/2025 14:08:45 04/22/2004/22/2025 CULTU RE: URINE result report SEE RESULT S BELOW Test: Cultu re: Urine Speci men Sourc e: Urine Voide d Speci men Type: Urine Speci men Date: 2024 1314 Resul t Date: 2024 0322 Resul t Statu s: Final resul t Abnor mal: No Resul ting Lab: [facility] [address] [facility] [address] Tel: CULTU RE ----- ----- ----- --- No growt h in 1 day (dete ction level of 10,00 0 colon ies / ml.) Not Available [facility] (Lab) [address], [place], [address], 04/24/2025 04:28:01 04/22/20 25 04/22/2025 urina lysis , dipst ick Leukocytes + Not Available [facility] [address], [place], [address], 04/22/2025 10:01:51 04/22/20 25 04/22/2025 urina lysis , dipst ick Protein + Not Available [address], [place], [address], 04/22/2025 10:01:51 04/22/20 25 04/22/2025 urina lysis , dipst ick pH 8 Not Available [address], [place], [address], 04/22/2025 10:01:51 04/22/20 25 04/22/2025 urina lysis , dipst ick Blood + Not Available [address], [place], [address], 04/22/2025 10:01:51 04/22/2004/22/2025 urina lysis , dipst ick Specific [place] 1.010 Not Available [facility] [address], [place], [address], 04/22/2025 10:01:51 04/22/2004/22/2025 urina lysis , dipst ick Ketone + Not Available [address], [place], [address], 04/22/2025 10:01:51 06/23/2006/23/2025 HEMAT OCRIT (HCT) HCT 35.6 % (based on docume nted legal sex) 34.0-4 5.0 Not Available [facility] (Lab) [address] [facility], [place], [address], 06/24/2025 11:45:32 06/23/20 25 06/23/2025 HEMOG LOBIN (HGB) HGB 11.1 g/dL (based on docume nted legal sex) 11.6-1 5.4 low Not Available [facility] (Lab) [address] [facility], [place], [address], 06/24/2025 11:45:32 06/23/20 25 06/23/2025 GTT - GESTA ROLAND L SCREE N, ACOG OB glucose, 1 hour screen 180 mg/dL 70-135 high Not Available [facility] (Lab) [address] [facility], [place], [address], 06/24/2025 11:45:33 06/23/20 25 06/23/2025 HIV 1/2 ANTIG EN/AN TIBOD Y, REFLE X CONFI RMATI ON HIV antigen/anti body Nonrea ctive nonrea ctive HIV-1 antig en and HIV-1 /HIV- 2 antib odies were not detec greg. No labor atory evide nce of HIV infec tion. Not Available [facility] (Lab) [address] [facility], [place], [address], 06/24/2025 11:45:33 06/23/20 25 06/23/2025 RPR SCREE N, REFLE X TITER /CONF IRMAT ION RPR qualitative Nonrea ctive nonrea ctive Not Available [facility] (Lab) [address] [facility], [place], [address], 06/24/2025 11:45:34 07/21/20 25 07/21/2025 CULTU RE: URINE result report SEE RESULT S BELOW Test: Cultu re: Urine Speci men Sourc e: Urine - Clean Catch Speci men Type: Urine Speci men Date: 2024 1024 Resul t Date: 2024 0252 Resul t Statu s: Final resul t Abnor mal: No Resul ting Lab: [facility] [address] [facility] [address] Tel: CULTU RE ----- ----- ----- --- No growt h in 1 day (dete ction level of 10,00 0 colon ies / ml.) Not Available [facility] (Lab) [address] [place], [address], 07/23/2025 03:57:01 07/21/2007/21/2025 urina lysis , dipst ick Leukocytes ++ Not Available [address], [place], [address], 07/21/2025 11:03:04 07/21/20 25 07/21/2025 urina lysis , dipst ick Nitrite neg Not Available [address], [place], [address], 07/21/2025 11:03:04 07/21/20 25 07/21/2025 urina lysis , dipst ick Urobilinogen neg Not Available [facility] [address], [place], [address], 07/21/2025 11:03:04 07/21/20 25 07/21/2025 urina lysis , dipst ick Protein + Not Available [address], [place], [address], 07/21/2025 11:03:04 07/21/20 25 07/21/2025 urina lysis , dipst ick pH 5 Not Available [address], [place], [address], 07/21/2025 11:03:04 07/21/20 25 07/21/2025 urina lysis , dipst ick Specific [place] 1.030 Not Available [facility] [address], [place], [address], 07/21/2025 11:03:04 07/21/20 25 07/21/2025 urina lysis , dipst ick Ketone +++ Not Available [address], [place], [address], 07/21/2025 11:03:04 07/21/20 25 07/21/2025 urina lysis , dipst ick Bilirubin neg Not Available [facility] [address], [place], [address], 07/21/2025 11:03:04 07/21/20 25 07/21/2025 urina lysis , dipst ick Glucose neg Not Available [address], [place], [address], 07/21/2025 11:03:04 07/21/20 25 07/21/2025 urina lysis , dipst ick Appearance cloudy Not Available [facility] [address], [place], [address], 07/21/2025 11:03:04 07/21/20 25 07/21/2025 urina lysis , dipst ick Color dark Not Available [address], [place], [address], 07/21/2025 11:03:04 08/04/20 25 08/04/2025 CMP(C OMPRE HENSI VE METAB OLIC PANEL ) sodium 138 mmol/ L 133-14 6 Not Available [facility] (Lab) [address] [facility], [place], [address], 08/05/2025 13:39:18 08/04/20 25 08/04/2025 CMP(C OMPRE HENSI VE METAB OLIC PANEL ) potassium 4.0 mmol/ L 3.5-5. 1 Not Available [facility] (Lab) [address] [facility], [place], [address], 08/05/2025 13:39:18 08/04/20 25 08/04/2025 CMP(C OMPRE HENSI VE METAB OLIC PANEL ) chloride 105 mmol/ L 98-107 Not Available [facility] (Lab) [address] [facility], [place], [address], 08/05/2025 13:39:18 08/04/20 25 08/04/2025 CMP(C OMPRE HENSI VE METAB OLIC PANEL ) carbon dioxide 25 mmol/ L 21-31 Not Available [facility] (Lab) [address] [facility], [place], [address], 08/05/2025 13:39:18 08/04/20 25 08/04/2025 CMP(C OMPRE HENSI VE METAB OLIC PANEL ) anion gap 8 mmol/ L 4-13 Not Available [facility] (Lab) [address] [facility], [place], [address], 08/05/2025 13:39:18 08/04/20 25 08/04/2025 CMP(C OMPRE HENSI VE METAB OLIC PANEL ) blood urea nitrogen 10 mg/dL 7-25 Not Available [facility] (Lab) [address] [facility], [place], [address], 08/05/2025 13:39:18 08/04/20 25 08/04/2025 CMP(C OMPRE HENSI VE METAB OLIC PANEL ) creatinine 0.41 mg/dL 0.60-1 .30 low Not Available [facility] (Lab) [address] [facility], [place], [address], 08/05/2025 13:39:18 08/04/20 25 08/04/2025 CMP(C OMPRE HENSI VE METAB OLIC PANEL ) egfrcr (CKD-epi 2020) >90 mL/mi n/1.7 3_m2 >=60 Not Available [facility] (Lab) [address] [facility], [place], [address], 08/05/2025 13:39:18 08/04/20 25 08/04/2025 CMP(C OMPRE HENSI VE METAB OLIC PANEL ) calcium 8.9 mg/dL 8.3-10 .5 Not Available [facility] (Lab) [address] [facility], [place], [address], 08/05/2025 13:39:18 08/04/20 25 08/04/2025 CMP(C OMPRE HENSI VE METAB OLIC PANEL ) glucose 116 mg/dL 70-100 high Not Available [facility] (Lab) [address] [facility], [place], [address], 08/05/2025 13:39:18 08/04/20 25 08/04/2025 CMP(C OMPRE HENSI VE METAB OLIC PANEL ) protein, total 6.1 g/dL 6.4-8. 3 low Not Available [facility] (Lab) [address] [facility], [place], [address], 08/05/2025 13:39:18 08/04/20 25 08/04/2025 CMP(C OMPRE HENSI VE METAB OLIC PANEL ) albumin 3.5 g/dL 3.5-5. 0 Not Available [facility] (Lab) [address] [facility], [place], [address], 08/05/2025 13:39:18 08/04/20 25 08/04/2025 CMP(C OMPRE HENSI VE METAB OLIC PANEL ) ALT 11 units /L 9-43 Not Available [facility] (Lab) [address] [facility], [place], [address], 08/05/2025 13:39:18 08/04/20 25 08/04/2025 CMP(C OMPRE HENSI VE METAB OLIC PANEL ) alkaline phosphatase 98 units /L 34-104 Not Available [facility] (Lab) [address] [facility], [place], [address], 08/05/2025 13:39:18 08/04/20 25 08/04/2025 CMP(C OMPRE HENSI VE METAB OLIC PANEL ) AST 15 units /L 13-39 Not Available [facility] (Lab) [address] [facility], [place], [address], 08/05/2025 13:39:18 08/04/2008/04/2025 CMP(C OMPRE HENSI VE METAB OLIC PANEL ) bilirubin, total 0.3 mg/dL 0.2-1. 2 Not Available [facility] (Lab) [address] [facility], [place], [address], 08/05/2025 13:39:18 08/04/20 25 08/04/2025 BILE ACIDS , TOTAL bile acids, total 4 umol/ L 0-10 Test Perfo rmed by: [facility] [address] [address] Not Available [facility] (Lab) [address] [facility], [place], [address], 08/05/2025 13:39:19 03/02/20 25 03/02/2025 US, obste tric, nucha l trans lucen cy No observ ation record ed. [email or web address] [address], [place], [address], 03/02/2025 13:35:30 03/02/20 25 03/02/2025 US, obste tric, nucha l trans lucen cy No observ ation record ed. [email or web address] [address], [place], [address], 03/03/2025 14:08:39 03/08/20 25 03/08/2025 US, obste tric, 1st trime ster No observ ation record ed. [email or web address] [address], [place], [address], 03/08/2025 12:22:22 03/08/20 25 03/08/2025 US, obste tric, 1st trime ster No observ ation record ed. [email or web address] [address], [place], [address], 03/10/2025 15:03:13 04/01/20 25 03/24/2025 [email or web address] r monit or No observ ation record ed. [address] [facility], [place], [address], 04/08/2025 12:36:45 04/01/20 25 03/22/2025 [email or web address] r monit or No observ ation record ed. [address] (Pulmonary) [address] [place] [address] [place] [address], [address], 04/06/2025 08:59:34 04/20/20 25 04/20/2025 US, obste tric, limit ed No observ ation record ed. [email or web address] [address], [place], [address], 04/20/2025 17:39:30 04/20/20 25 04/20/2025 US, obste tric, follo w-up No observ ation record ed. [email or web address] [address] [place] [address] [address], [place], [address], 04/23/2025 08:32:54 04/28/20 25 04/28/2025 US, obste tric, 2nd or 3rd trime ster No observ ation record ed. [email or web address] [address], [place], [address], 04/28/2025 17:48:42 04/28/20 25 04/28/2025 US, obste tric, 2nd or 3rd trime ster No observ ation record ed. [email or web address] [address], [place], [address], 05/04/2025 22:16:11 05/07/20 25 05/07/2025 non-s tress test No observ ation record ed. [address], [place], [address], 05/28/2025 13:33:54 05/21/20 25 05/21/2025 CT, head + brain , w/o contr ast No observ ation record ed. [address], [place], [address], 05/24/2025 13:48:57 05/28/20 25 05/28/2025 US, obste tric, follo w-up No observ ation record ed. [email or web address] [address], [place], [address], 05/28/2025 17:32:34 05/28/2005/28/2025 US, obste tric, follo w-up No observ ation record ed. [email or web address] [address], [place], [address], 06/01/2025 15:13:13 06/08/20 25 06/07/2025 US, obste tric, follo w-up No observ ation record ed. [email or web address] [facility] [address] [facility], [place], [address], 06/15/2025 10:53:46 07/07/20 25 07/07/2025 US, obste tric, follo w-up No observ ation record ed. [email or web address] [address], [place], [address], 07/07/2025 13:18:01 07/07/20 25 07/07/2025 US, obste tric, follo w-up No observ ation record ed. [email or web address] [address], [place], [address], 07/07/2025 11:29:37 08/04/20 25 08/04/2025 US, obste tric, follo w-up No observ ation record ed. [email or web address] [address], [place], [address], 08/04/2025 15:08:50 08/04/20 25 08/04/2025 US, obste tric, follo w-up No observ ation record ed. [email or web address] [address], [place], [address], 08/06/2025 10:41:50 08/11/2008/11/2025 non-s tress test No observ ation record ed. [email or web address] [address], [place], [address], 08/11/2025 17:37:52 08/11/20 non-s tress test No observ ation record ed. [address], [place], [address], 08/11/2025 17:38:11 08/15/2008/15/2025 non-s tress test No observ ation record ed. [place] [id number] [facility] [address], [place], [address], 08/21/2025 10:18:57 08/15/2008/15/2025 US, obste tric, bioph ysica l profi le No observ ation record ed. [place] [id number] [facility] [address], [place], [address], 08/17/2025 10:50:53 08/18/2008/18/2025 US, obste tric, bioph ysica l profi le + non-s tress test No observ ation record ed. [email or web address] [address], [place], [address], 08/18/2025 10:21:39 08/18/2008/18/2025 US, obste tric, bioph ysica l profi le + non-s tress test No observ ation record ed. [email or web address] [address], [place], [address], 08/18/2025 10:35:44 08/18/2008/18/2025 non-s tress test No observ ation record ed. [email or web address] [address], [place], [address], 08/18/2025 17:34:03 08/18/20 non-s tress test No observ ation record ed. [email or web address] [address], [place], [address], 08/18/2025 16:06:09 08/25/2008/25/2025 US, obste tric, bioph ysica l profi le + non-s tress test No observ ation record ed. [email or web address] [address], [place], [address], 08/25/2025 18:52:06 08/25/2008/25/2025 US, obste tric, follo w-up No observ ation record ed. [email or web address] [address], [place], [address], 08/25/2025 15:47:28 08/25/2008/25/2025 non-s tress test No observ ation record ed. [email or web address] [address], [place], [address], 08/25/2025 18:12:15 08/25/20 non-s tress test No observ ation record ed. [email or web address] [address], [place], [address], 08/25/2025 17:21:19 08/30/20 25 08/30/2025 non-s tress test No observ ation record ed. [email or web address] [address] [place] [address], [address], 09/15/2025 15:26:49 09/01/20 25 09/01/2025 non-s tress test No observ ation record ed. [address], [place], [address], 09/13/2025 11:32:22 09/01/20 25 09/01/2025 [place], obste tric No observ ation record ed. [place] [id number] [facility] [address], [place], [address], 09/02/2025 15:56:01 09/01/20 25 09/01/2025 non-s tress test No observ ation record ed. [email or web address], [place], [address], 09/02/2025 14:32:38 09/16/20 09/16/2025 CT, angio gram, head + neck, w/ contr ast No observ ation record ed. [email or web address] [facility] [address], [place], [address], 09/16/2025 20:01:05 09/28/20 25 09/28/2025 non-s tress test No observ ation record ed. [facility] [address], [place], [address], 10/04/2025 16:42:40 Result Notes None recorded. Problems Name Problem SNOMED Code Status Onset Date Resolution Date Notes Provider Name and Address Organization Details Recorded Time Hypereme sis [id number] Completed phenerga n now prn [place] ramos [facility] 2 16:43:51 Anxiety in pregnanc y [id number] Completed will continue to monitor [place] ramos [facility] 2 16:43:51 Past pregnanc y history of gestatio nal diabetes mellitus [id number] Completed Early 1 hr GTT @ 20wks 11/03 APPT Asia ramos [facility] 2 16:43:51 Spinal muscular atrophy 4854682 Completed Carrier - Not in contact with FOB. Asia ramos [facility] 2 16:43:51 Anxiety 80856502 Completed prozac Karina ramos [facility] 4 11:00:46 Nausea 778755141 Completed d/c zofran pump 11/08 per pt request Karina ramos [facility] 4 11:00:46 Postpart um hemorrha ge [id number] Completed 2017 with d&c Karina ramos [facility] 4 11:00:46 Normal pregnanc y in gracegra jessy [id number] 56901 Completed 201907/05/2021 Encounte r for supervis ion of other normal pregnanc y, 3rd trimeste r;Record ed Elsewher e: No [facility]: EHR Computer Programming Supervisor yvrose: N Natalyati ce ID: 0001 Gigi lable Time: 10:45:00 AM Karina ramos, [facility] 10:15:27 Gestatio n period, 37 weeks 85820419 Completed 201907/05/2021 37 weeks gestatio n of pregnanc y;Record ed Elsewher e: No Locat ion: [facility] S ource: EHR Computer Programming Supervisor yvrose: N Natalyati ce ID: 0001 Gigi lable Time: 09:00:00 AM Karina ramos [facility] 10:15:[address] Concept Completed 201907/05/2021 Matern care for abnlt fetl hrt rate or rhym, 3rd tri, unsp;Rec orded Elsewher e: No Locat ion: [facility] S ource: EHR Computer Programming Supervisor yvrose: N Natalyati ce ID: 0001 Gigi lable Time: 08:45:00 AM Karina ramos [facility] 10:15:29 Gestatio nal diabetes mellitus 20438389 Completed 201907/05/2021 Gestatio nal diabetes mellitus in pregnanc y, diet controll ed;Recor ded Elsewher e: No Locat ion: [facility] S ource: EHR Computer Programming Supervisor yvrose: N Natalyati ce ID: 0001 Gigi lable Time: 11:45:00 AM Karina ramos [facility] 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 10:15:13 Amenorrh ea 77440091 Completed 202007/10/2021 Tammi Jones null, [facility] 13:08:35 Pregnanc y 81379210 Completed 202003/29/2022 Emma Dykes [facility], [facility] 12:28:48 Pregnanc y 72199831 Completed 202304/22/2024 Emma ramos, [facility] 12:28:48 Headache 25069730 Active 2023 Karina Burroughs null, [facility] 16:19:28 Pregnanc y 10350799 Completed 202309/14/2025 Emma Dykes [facility], [facility] 12:28:48 Uncompli cated moderate persiste nt asthma 989578723 Completed 2024 albutero l prn Shawn Bradley MD [address], [place], [address], [facility] 13:08:36 Anxiety 25673203 Completed 2024 sertrali ne started 03/02/25 changed to prozac 10 on Shawn Bradley MD [address], [place], [address], [facility] 5 17:05:48 Nausea and vomiting 77306007 Completed 2024 Shawn Bradley MD [address], [place], [address], [place] [facility] 5 13:20:27 Placenta circumva llata 5478699 Completed 2024 32wk [facility] 09:44[facility]35 Frequent headache 346235319 Completed 2024 transpor t to [facility] 05/21, discharg e 05/23 MFM referral faxed 05/24 [facility] pending per KAJAL Pittman [facility]- Neuro [facility] unable [...] more than 2-3 times a week. [facility] 10:55:26 Abnormal placenta affectin g manageme nt of mother 39114679 Completed 2024 MCI serial [facility] 10:46:25 Iron deficien cy anemia 94215735 Completed 2024 SS MFM tx venofer 200mg x1 HGB 10.6 [facility] 5 15:21:25 Gestatio nal diabetes mellitus 52357200 Completed 2024 checking bs QID - ruled in GDM Referral fax[facility] to [facility] 14:36:52 Notes:Order faxed to [facility] access 08/10 for PICC line, and home health already caring for pt. Vladimir RDZ at [phone] Problem Notes None recorded. Procedures Surgical History Date Name Laterality Status Provider Name and Address Organization Details Recorded Time 025 SALPINGECTOMY, LAPAROSCOPIC (SURG) completed Not Available Counts include 234 beds at the [facility] 09/06/2025 11:19:17 025 Date of Last Pap Smear completed Karina Burroughs [facility] 01/28/2025 11:19:42 024 Nexplanon Removal completed Shawn Bradley MD [address], [place], [address], [facility] 08/05/2024 15:09:58 024 Control Implant Insertion completed Anju Mcnamara CNM [address], [place], [address], [facility] 05/08/2024 17:59:34 024 cholecystectomy completed Karina Burroughs [facility] 03/31/2025 09:18:57 018 Dilation and Curettage completed Kairna Burroughs [facility] 07/05/2021 10:17:50 Imaging Results None recorded. Procedure Notes None recorded. Medical Equipment None Reported. Allergies Allergen ID Allergen Name Allergen Category Reaction Reaction Severity Criticality Documentation Date Start Date Code Code System Note Provider Name and Address Organization Details Recorded Time 76067 terbutali ne medicatio n anaphylax is Not available Not available 01/27/20252021 43437 RxNorm Karina ramos, [facility] 16:19:27 11945 amoxicill in medicatio n Not available Not available Not available 09/10/2025 723 RxNorm Not Available gene [email or web address] External Data Service - prod 16:39:37 98214 terbinafi ne medicatio n anaphylax is Not available [facility] 09/10/20252024 13746 RxNorm Not Available gene [employer] Data Service - prod 16:40:54 Medications Name [...] 25 mg tablet TAKE 1/2 TO 1 (ONE-JOSEL F TO ONE) TABLET BY MOUTH THREE [...] Prescrib ed Elsewher e: Yes [facility] By: prabhjot Lee r DateTime : [...] n (supplie d by office) insert lot [id number] Exp 01/2026 Not Available Not Available Not Available 28 mg iron-800 mcg tablet 07/05 completed Prescrib ed Elsewher e: Yes [facility] By: prabhjot Lee r DateTime : 01/14/20 10:45:00 AM Not Available Not Available Not Available lidocaine 5 % topical ointment APPLY OINTMENT EXTERNAL LY TO RIBS THREE TIMES DAILY NEEDED 01/14 completed Not Available Not Available Not Available WARP HAULER-PNV-DH A 28 mg iron-1 mg-200 mg capsule [...] Details Last Updated DateTime 08/18/2025 162.56 cm 60844.9960 8 g 116/77 mm[Hg] Melyssa Santo [facility] 08/18/2025 10:57:44 Date Recorded Body height Body weight Systolic And Diastolic Provider Name and Address Organization Details Last Updated DateTime 08/18/2025 162.56 cm 66211.9960 8 g 116/77 mm[Hg] Emma Dykes [facility] 08/18/2025 16:03:36 Social History Question Answer Notes LastModified by Organizat ion Details LastModified Time Tobacco Smoking Status Former Smoker Karina ramos, [facility] 07/05/2021 09:06:21 If You Are , What Was Your Level Of Alcohol Consumption Prior To ? Occasional [email or web address] Information not available 03/31/2025 Are You Blind Or Do You Have Difficulty Seeing? No Information not available 07/05/2021 What Is Your Level Of Caffeine Consumption? Heavy [email or web address] Information not available 07/05/2021 In The 14 Days Before Symptom Onset, Have You Had Close Contact With A Laboratory-confir med COVID-19 While That Case Was Ill? No [email or web address] Information not available 07/05/2021 In The 14 Days Before Symptom Onset, Have You Had Close Contact With A Person Who Is Under Investigation For COVID-19 While That Person Was Ill? No [email or web address] Information not available 07/05/2021 Have You Been To An Area Known To Be High Risk For COVID-19? No [email or web address] Information not available 07/05/2021 Are You Deaf Or Do You Have Serious Difficulty Hearing? No Information not available 07/05/2021 What Type Of Diet Are You Following? REGULAR [email or web address] Information not available 07/05/2021 Which Illicit Or Recreational Drugs Have You Used? Marijuana [email or web address] Information not available 07/05/2021 Have You Ever Been Counseled For Unhealthy Alcohol Use? No [email or web address] Information not available 07/05/2021 Do You Use Your Seat Belt Or Car Seat Routinely? Yes [email or web address] Information not available 07/05/2021 Do You Have Smoke And Carbon Monoxide Detectors In Your Home? Yes [email or web address] Information not available 07/05/2021 Do You Use Sunscreen Routinely? Yes [email or web address] Information not available 07/05/2021 Has Tobacco Cessation Counseling Been Provided? No Information not available 07/05/2021 Have You Used IV Drugs? No [email or web address] Information not available 07/05/2021 Do You Have Difficulty Walking Or Climbing Stairs? No [email or web address] Information not available 12/06/2021 Sex: Unknown Functional Status Question Answer Note LastModified by Organizat ion Details LastModified Time Do you use any illicit or recreational drugs? Yes [email or web address] Information not available 07/05/2021 Do you or have you ever used any other forms of tobacco or nicotine? Yes [email or web address] Information not available 07/05/2021 What is your level of alcohol consumption? None [email or web address] Information not available 03/31/2025 Do you or have you ever used smokeless tobacco? Never used smokeless tobacco [email or web address] Information not available 07/05/2021 Are you able to walk independently without assistance or assistive devices? YESWOREST [email or web address] Information not available 07/05/2021 Are you able to care for yourself independently? Yes Information not available 12/06/2021 Do you have difficulty dressing, bathing, grooming, or toileting? No [email or web address] Information not available 12/06/2021 Do you or have you ever used e-cigarettes or vape? Current user of electronic cigarettes [email or web address] Information not available 07/05/2021 What is your exercise level? Occasional [email or web address] Information not available 07/05/2021 Mental Status Question Answer Note LastModified by Organization D etails LastModified Time Do you feel stressed (tense, restless, nervous, or anxious, or unable to sleep at night)? [id number] [email or web address] Information not available 07/05/2021 Family History Relationship Description Onset Age of this Age Resolved Age Notes LastModified by Organization Details LastModified Time Father No current problems or disability [email or web address] Not available 05/2021 09:06:31 Mother No current problems or disability [email or web address] Not available 05/2021 09:06:31 Medical History Condition [...] ICD10 Code Diagnosis IMO Codes Diagnosis Note [id number] Anju Mcnamara CNM [place] [address],[place] [address] 07/21/2025 09:28:54 07/21/2025 12:36:06 Pain in pelvis 36670755 R10.2 617623 Gestation period, 32 weeks 2606617 Z3A.32 4510314 [id number] Shawn Bradley MD [place] [address] [place] [address] 08/04/2025 14:02:59 08/04/2025 15:06:33 Gestational diabetes mellitus 90061537 O24.410 O43.103 O43.113 Z3A.34 86743555 [id number] Anju Mcnamara CNM [place] [address] [place] [address] 08/04/2025 14:21:57 08/04/2025 15:26:03 Gestation period, 34 weeks 97524200 Z3A.34 4960123 Pruritic d isorder of skin 6644651139 L29.9 13444 plan labs today, ursadiol BID [id number] [facility] [address],[place] [address] 08/11/2025 14:51:38 08/11/2025 17:16:44 Gestational diabetes mellitus 28154569 O24.414 15874524 [id number] [facility] [address],[place] [address] 08/11/2025 16:25:59 08/11/2025 17:46:32 Gestational diabetes mellitus 01108717 O24.414 29614797 [id number] Shawn Bradley MD [place] [address],[place] [address] 08/18/2025 09:40:51 08/18/2025 10:15:47 Gestational diabetes mellitus 49312521 O24.414 Z3A.36 78752484 [id number] Anju Mcnamara CNM [place] [address],[place] [address] 08/18/2025 09:41:06 08/18/2025 11:24:04 Gestation period, 36 weeks 81909429 Z3A.36 8994370 cont pnv [id number] [facility] [address],[place] [address] 08/18/2025 09:41:16 08/18/2025 16:17:31 Gestational diabetes mellitus class A2 06616547 O24.414 55569133 Health Concerns Section Related Observation LastModified by Organization Detai ls LastModified Time None Recorded Concern Status LastModified by Organization Details LastModified Time None Recorded Payers Encounter Date Sequence Insurance Name Policy Number Policy Roberts Covered Member ID Roberts Member ID Guarantor Name 08/18/2025 1 [facility] (MEDICAID HMO) [id number] Yuni Mejia [id number] Yuni Mejia Notes Date Note Type Note Provider Name and Address Organization Details Recorded Time 08/18/2025 text/html Generic HPI TemplateReported by Patient Anju Mcnamara CNM [address], [place], [address], [facility] 08/18/2025 11:23:41 OBGyn Episode Ob Episode Information Episode Created Date Number of Fetuses Patient Bloodtype Patient rh Status Prepregnancy Weight lbs Domestic Partner Domestic Partner Phone Father Name Hogshead Opener Status 03/02/20 25 1 B Positive 164 CLOSED Fetus Data First Name Last Name Admitted to NICU Weight (g) Sex Living Outcome Pediatric Complications Fetus ID Race Codes Race Delivery Type Ziah false 4025.62 9 F true Full Term 00916 Vaginal Delivery Problems Problem Notes SDH form completed 5GI consult Tachycardia Holter monitor 72 order- pt sent back on 03-27-25 Cardiology referral faxed per Dr Martínez office calling pt 04/21 to schedule consult scheduled 05/11 11:15AM Problem Name Start Date End Date Resolution Snomed Code Not e Uncomplicated moderate persistent asthma 03/02/2025 892982780 albuterol prn Abnormal placenta affecting management of mother 05/04/2025 76338376 MCI serial grow th us Iron deficiency anemia 05/25/2025 58450987 [facility] tx [place] 200mg x1 HGB 10.6 Nausea and vomiting 03/02/2025 51106221 Anxiety 03/02/2025 99121449 sertralin e started 03/02/25 changed to prozac 10 on Gestational diabetes mellitus 07/08/2025 91378468 checking bs QID - ruled in GDM Referral faxed to [facility] 07/07 Frequent headache 05/03/2025 134338158 t [place] to [facility] 05/21, discharge 05/23 MF referral faxed 05/24 [facility] Neurology consult pending per KAJAL Pittman [facility]- [facility] unable to see pt due to insurance [facility] 07/05/25 Level US & Consult (see [facility] consult zayas recommendations ) regimen prn Imitrex 50mg for acute migraine, vitamin B2 (Riboflavin) 400mg, Coenzyme q10 300mg and magnesium oxide 200 to 600mg daily. minimize use of Excedrin or Tylenol to no more than 2-3 times a week. 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/2025 0534551 32wk growth us Jun Calculation Initial Jun [...] Weight in lbs Pre/Post Dialysis Refused Weight 158.934063229097 BP Diastolic BP Location Tested BP Systolic [...] Weight in lbs Pre/Post Dialysis Refused Weight 158.227008938704 BP Diastolic BP Location Tested BP Systolic [...] Weight in lbs Pre/Post Dialysis Refused Weight 162.796277680576 BP Diastolic BP Location Tested BP Systolic BP Type 78 123 Fetus Heart Rate Present A 148 Fetus Movement A Yes Comments Patient is having having ronny n, cramping and vaginal discharge. went to ed exam done cultures and rx sent, ?FM, await food assembler kitchen results rfilled zofran, precautions and education f/u [...] Type Weight in lbs Pre/Post Dialysis Refused 168.875670912809 BP Diastolic BP Location Tested BP Systolic [...] Type Weight in lbs Pre/Post Dialysis Refused 169.774728974003 BP Diastolic BP Location Tested BP Systolic [...] Weight in lbs Pre/Post Dialysis Refused Weight 175.303991105753 BP Diastolic BP Location Tested BP Systolic [...] Weight in lbs Pre/Post Dialysis Refused Weight 182.583499121687 BP Diastolic BP Location Tested BP Systolic [...] Weight in lbs Pre/Post Dialysis Refused Weight 181.290979145647 BP Diastolic BP Location Tested BP Systolic BP Type 73 L arm 131 sitting Fetus Heart Rate Present Fetus Movement A Yes Comments viral URI testied neg at urg ent care, nausea resolved, efw 68%, +FM plan education and precautions f/u 2 weeks diagnosed GDM, plan 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 vehicle operations instructor, gave list reviewed protein vs carb Flowsheet Date 07/21/2025 Gibson Score Blood Edema Fundus Height Fundus Units Glucose Ketones Leukocytes Nitrite Labor Signs Protein Cervic Dilation Cervic Effacement Cervic Station Type Weight in lbs Pre/Post Dialysis Refused Weight 181.965703757697 BP Diastolic BP Location Tested BP Systolic BP Type 78 L arm 127 sitting Fetus Heart Rate Present A 150 Fetus Movement A Yes Comments rpt urine culture +FM review ed blood sugars, meets with emergency vehicle operations instructor today, precautions and education f/u 2 weeks [...] Weight in lbs Pre/Post Dialysis Refused Weight 181.029865669839 BP Diastolic BP Location Tested BP Systolic [...] Weight in lbs Pre/Post Dialysis Refused Weight 183.088446530076 BP Diastolic BP Location Tested BP Systolic [...] Type Weight in lbs Pre/Post Dialysis Refused 184.975282318133 BP Diastolic BP Location Tested BP Systolic [...] Type Weight in lbs Pre/Post Dialysis Refused 184.641582426514 BP Diastolic BP Location Tested BP Systolic [...] Type Weight in lbs Pre/Post Dialysis Refused 184.952905034824 BP Diastolic BP Location Tested BP Systolic [...] Weight in lbs Pre/Post Dialysis Refused Weight 184.955271945868 BP Diastolic BP Location Tested BP Systolic [...] Weight in lbs Pre/Post Dialysis Refused Weight 164.268190609087 BP Diastolic BP Location Tested BP Systolic [...]
--- OUTSIDE RECORDS SUMMARY | 2025-10-27 12:14 | XMS_ITS ---
Author Organization Unknown Address [address] [place] [address] [phone] Phone Care Team Providers Care Investigation Manager Name Role Phone MARK Fernandez Attending Unavailable [...] D DIMER - Collect Date/Time: 06/08/2024 09:45 [facility] ID: [id number] [address] [place], [place], [id number] LOINC: Test Value Unit Reference Range Code Code System Flag DDIMER 0.35 mg/L FEU L=0.00 H=0.50 Social History Type Status Start Date End Date Code Code Syst em Smoking History Never smoker (Never Smoked) 702528898 SNOMED CT Sex Female Assessment You had [...] 6002 SNOMED-CT UNSPECIFIED ABDOMINAL PAIN active 215 32858 SNOMED-CT Allergies and Adverse Reactions Allergy Substance Reaction Severity Start Date Concern Status Co de Code System AMOXICILLIN Active 723 RxNorm TERBUTALINE Active 67090 RxNorm Plan of Treatment Stress Test Treadmill 01/21/2025 Crna Consult 04/27/2025 Encounters Encounter Diagnosis Start Date [...]
--- OUTSIDE RECORDS SUMMARY | 2025-10-27 12:15 | XMS_ITS ---
Author Organization Unknown Address [address] [place] [address] [phone] Phone Care Team Providers Care Paddle Dyeing Machine Operator Name Role Phone ANNABELLE GONZALEZ Attending [...] Jarad Root M.D. [place]: CHAUNCEY Report ID: [id number] Reading Location: [place] [address] Social History Type Status Start Date End Date Code Code Syst em Smoking History Never smoker (Never Smoked) 361141993 SNOMED CT Sex Female Assessment You had [...] 6002 SNOMED-CT UNSPECIFIED ABDOMINAL PAIN active 215 46985 SNOMED-CT Allergies and Adverse Reactions Allergy Substance Reaction Severity Start Date Concern Status Co de Code System AMOXICILLIN Active 723 RxNorm TERBUTALINE Active 35939 RxNorm Plan of Treatment Stress Test Treadmill 01/21/2025 Business And Services Instructor Consult 04/27/2025 Encounters Encounter Diagnosis Start Date [...]
--- OUTSIDE RECORDS SUMMARY | 2025-10-27 12:15 | XMS_ITS ---
Author Organization Unknown Address [id number] [place] [phone] Phone Care Team Providers Care Elevator Troubleshooter Name Role Phone RENATE MOORE Attending Unavailable [...] DIFF - Collect Date/T randall: 10/06/2023 12:25 [facility] ID: [id number] [address] [place], [place], [phone] LOINC: 84555-9 Test Value Unit Reference Range Code Code System Flag WBC 10.5 10^3uL L=4.8 H=10.8 RBC 4.02 10^6uL L=4.20 H=5.40 L HEMOGLOBIN 11.2 g/dL L=12.0 H=16.0 718-7 LOINC L HEMATOCRIT 33.3 VOL% L=37.0 H=47.0 4544-3 LOINC L MCV 82.8 fL L=81.0 H=99.0 MCH 27.9 pg L=27.0 H=32.0 MCHC 33.6 g/dL L=32.0 H=36.0 PLATELETS 306 10^3uL L=100 H=400 01501-8 LOINC RDW 12.1 % L=11.7 H=15.5 %GRAN 78.1 % L=40.0 H=70.0 48950-1 LOINC H %LYMPH 14.2 % L=20.0 H=45.0 736-9 LOINC L %MONO 6.5 % L=2.0 H=10.0 30118-7 LOINC %EOS 0.6 % L=0.0 H=6.0 713-8 LOINC %BASO 0.2 % L=0.0 H=3.0 706-2 LOINC #NEUT 8.2 10^3uL L=1.9 H=7.6 20584-0 LOINC H #LYMPH 1.5 10^3uL L=0.9 H=4.9 60611-7 LOINC #MONO 0.7 10^3uL L=0.1 H=0.9 47963-7 LOINC #EOS 0.1 10^3uL L=0.0 H=0.6 712-0 LOINC #BASO 0.02 10^3uL L=0.00 H=0.10 20193-9 LOINC #IM GRANS 0.0 10^3uL L=0.0 H=7.0 77097-2 LOINC %IM GRANS 0.4 % L=0.0 H=5.0 02319-4 LOINC %NRB 0.0 L=0.0 H=0.2 20863-6 LOINC #NRB 0.000 L=0.000 H=0.012 71449-8 LOINC MANUAL DIFF NOT INDICATED RBC MORPH NOT INDICATED COMPREHENSIVE METABOLIC PANE L - Collect Date/Time: 10/06/2023 12:25 [facility] ID: [id number] [address] [place], [place], [phone] LOINC: 26391-6 Test Value Unit Reference Range Code Code [...] 2028-9 LOINC ANION GAP 14 L=10 H=20 54201-2 LOINC OSMOLALITY 283 mOs/kG L=280 H=296 71593-6 LOINC BUN/CREAT 27.5 3097-3 LOINC CALCIUM 9.3 mg/dL L=8.3 H=10.5 07125-4 LOINC AST 21 U/L L=15 H=46 1920-8 LOINC ALT 13 U/L L=9 H=72 1742-6 LOINC ALKALINE PHOS 62 U/L L=38 H=126 6768-6 LOINC TOTAL BILI 0.3 mg/dL L=0.2 H=1.3 1975-2 LOINC ALBUMIN 4.3 G/dL L=3.5 H=5.0 1751-7 LOINC TOTAL PROTEIN 7.5 g/L L=6.3 H=8.2 2885-2 LOINC A/G RATIO 1.3 67686-8 LOINC AGE 23 23040-0 LOINC eGFR NON-AFR 208 ml/min eGFR AFR AMER 252 ml/min PROTIME - Collect Date/Time: 10/06/2023 12:25 [facility] ID: [id number] [address] [place] [address], [phone] LOINC: 47634-0 Test Value Unit Reference Range Code Code System Flag PT 10.5 Sec L=9.7 H=11.7 48580-4 LOINC INR 1.0 Sec L=0.9 H=1.1 73241-0 LOINC PTT - Collect Date/Time: 07/2023 12:25 [facility] ID: [id number] [address] [place] [address], [phone] LOINC: 96339-0 Test Value Unit Reference Range Code Code System Flag PTT 26.3 Sec L=23.0 H=31.2 LIPASE - Collect Date/Time: 10/06/2023 12:25 [facility] ID: [id number] [address] [place] [address], [phone] LOINC: 3040-3 Test Value Unit Reference Range Code Code System Flag LIPASE 63 U/L L=23 H=300 3040-3 LOINC BETA HCG-QUANT - Collect Neil e/Time: 10/06/2023 12:25 [facility] ID: [id number] [id number] [place] [address], [phone] LOINC: 26544-4 Test Value Unit Reference Range Code Code System Flag BETA HCG-QUANT 678434.00 mIU/mL L=0.00 H=6.00 12083-7 LOINC H Social History Type Status Start Date End Date Code Code Syst em Smoking History Never smoker (Never Smoked) 237896091 SNOMED CT Sex Female Assessment You had [...] 6002 SNOMED-CT UNSPECIFIED ABDOMINAL PAIN active 215 80036 SNOMED-CT Allergies and Adverse Reactions Allergy Substance Reaction Severity Start Date Concern Status Co de Code System AMOXICILLIN Active 723 RxNorm TERBUTALINE Active 16942 RxNorm Plan of Treatment Stress Test Treadmill 01/21/[address] Foreman Consult 04/27/2025 Encounters Encounter Diagnosis Start Date Code Code Sys tem Mild hyperemesis gravidarum 10/06/2023 SNOMED-CT Personal Care Team Section Performer Name Performer Role Active Date Inactive Da te KRAIG ESTRADA PCP - Primary care physician 2021-10 0-24 2024-09-12 KRAIG ESTRADA PCP - Primary care physician 2023-0 -2024-09-12 KRAIG ESTRADA PCP - Primary care physician 2023-0 -10 2024-09-12 KRAIG ESTRADA PCP - Primary care physician 2023-0 -16 2024-09-12 Hong Abdi PCP - Primary care physician 2024-09-12
--- OUTSIDE RECORDS SUMMARY | 2025-10-27 12:15 | XMS_ITS ---
Author Organization Unknown Address [address] [place] [phone] Phone Care Team Providers Care Body Trimmer Upholsterer Name Role Phone MIKE CURTIS Attending Unavailable [...] LEVEL - Collect Neil e/Time: 07/10/2024 09:21 [facility] ID: [id number] [address] [place], [place], [phone] LOINC: 83788-0 Test Value Unit Reference Range Code Code System Flag TROPONIN < 0.012 ng/mL L=0.000 H=0.033 69587-3 LOINC D DIMER - Collect Date/Time: 07/10/2024 09:21 [facility] ID: [id number] [address] [place] [address], [phone] LOINC: Test Value Unit Reference Range Code Code System Flag DDIMER 0.95 mg/L FEU L=0.00 H=0.50 H Social History Type Status Start Date End Date Code Code Syst em Smoking History Never smoker (Never Smoked) 349668913 SNOMED CT Sex Female Assessment You had [...] 6002 SNOMED-CT UNSPECIFIED ABDOMINAL PAIN active 215 87811 SNOMED-CT Allergies and Adverse Reactions Allergy Substance Reaction Severity Start Date Concern Status Co de Code System AMOXICILLIN Active 723 RxNorm TERBUTALINE Active 94402 RxNorm Plan of Treatment Stress Test Treadmill 01/21/2025 Motor Coach Operator Consult 04/27/2025 Encounters Encounter Diagnosis Start [...]
--- OUTSIDE RECORDS SUMMARY | 2025-10-27 12:15 | XMS_ITS | Continuity of Care Document ---
Author Organization [facility] Address [address] [place] [address] Care Team Providers Care Dressage Judge Name Role Phone VIVIAN ESTRADAISSA Primary Care Provider Assessment No assessment recorded. Plan of Treatment Reminders Order Date Submit Date Provider Last Modified By Organization Details Last Modified Time Details Appointments None recorded. Lab None recorded. Referral None recorded. Procedures None recorded. Surgeries None recorded. Imaging None recorded. Medication Orders sertraline 100 mg tablet 2024 025 [facility] [address] [place], [address], 13:06:11 lamotrigine 25 mg tablet 2024 025 [facility] [address] [place], [address], 13:06:10 Patient TargetsNo targets recorded. Patient InstructionsNo instructions recorded. Reason for Referral None Reported. Results Created Date Observation Date Name Description Value Unit Range Abnormal Flag Note LastModifiedBy Organization Detail LastModifiedTime 03/06/2003/06/2025 [UNIT Y] ANEUP LOIDY NIPT fraction 5.7% normal Not Available [facility] [address], [place], [address], 03/06/2025 03:58:26 03/06/20 25 03/06/2025 [UNIT Y] ANEUP LOIDY NIPT sex chromosome aneuploidy NOT DETECT ED normal Not Available [facility] [address], [place], [address], 03/06/2025 03:58:26 03/06/20 25 03/06/2025 [UNIT Y] ANEUP LOIDY NIPT monosomy X LOW RISK <1 in 10,000 normal Not Available [facility] [address], [place], [address], 03/06/2025 03:58:26 03/06/20 25 03/06/2025 [UNIT Y] ANEUP LOIDY NIPT trisomy 13 LOW RISK <1 in 10,000 normal Not Available [facility] [address], [place], [address], 03/06/2025 03:58:26 03/06/20 25 03/06/2025 [UNIT Y] ANEUP LOIDY NIPT trisomy 18 LOW RISK <1 in 10,000 normal Not Available [facility] [address], [place], [address], 03/06/2025 03:58:26 03/06/20 25 03/06/2025 [UNIT Y] ANEUP LOIDY NIPT trisomy 21 LOW RISK <1 in 10,000 normal Not Available [facility] [address], [place], [address], 03/06/2025 03:58:26 03/06/20 25 03/06/2025 [UNIT Y] ANEUP LOIDY NIPT sex FEMALE normal Not Available [facility] [address], [place], [address], 03/06/2025 03:58:26 03/06/20 25 03/06/2025 [UNIT Y] ANEUP LOIDY NIPT gestation SINGLE TON normal Not Available [facility] [address], [place], [address], 03/06/2025 03:58:26 05/08/16 2503/06/2025 [UNIT Y] ANEUP KIANA NIPT for detailed report, see pdf See PDF normal Not Available [facility] [address], [place], [address], 03/06/2025 03:58:26 03/02/2003/02/2025 CULTU RE: URINE result report SEE RESULT S BELOW Test: Cultu re: Urine Speci men Sourc e: Urine - Clean Catch Speci men Type: Urine Speci men Date: 1455 Resul t Date: 2138 Resul t Statu s: Final resul t Abnor mal: No Resul ting Lab: [facility] [address] [facility] [address] Tel: CULTU RE ----- ----- ----- --- No growt h in 1 day (dete ction level of 10,00 0 colon ies / ml.) Not Available [facility] (Lab) [address] [place], [address], 03/03/2025 22:42:27 03/12/2003/12/2025 CULTU RE: URINE result report SEE RESULT S BELOW Test: Cultu re: Urine Speci men Sourc e: Urine - Clean Catch Speci men Type: Urine Speci men Date: 2024 1600 Resul t Date: 2024 0610 Resul t Statu s: Final resul t Abnor mal: No Resul ting Lab: [facility] [address] [facility] [address] Tel: CULTU RE ----- ----- ----- --- No growt h in 1 day (dete ction level of 10,00 0 colon ies / ml.) Not Available [facility] (Lab) [address] [place], [address], 03/14/2025 07:15:03 03/12/2003/12/2025 urina lysis , dipst ick Leukocytes ++ Not Available [facility] [address], [place], [address], 03/12/2025 16:45:06 03/12/20 25 03/12/2025 urina lysis , dipst ick Protein + Not Available [facility] [address], [place], [address], 03/12/2025 16:45:06 03/12/20 25 03/12/2025 urina lysis , dipst ick pH 5 Not Available [facility] [address], [place], [address], 03/12/2025 16:45:06 03/12/20 25 03/12/2025 urina lysis , dipst ick Blood trace Not Available [facility] [address], [place], [address], 03/12/2025 16:45:06 03/12/20 25 03/12/2025 urina lysis , dipst ick Specific Renner 1.015 Not Available [facility] [address], [place], [address], 03/12/2025 16:45:06 03/12/20 25 03/12/2025 urina lysis , dipst ick Ketone +++ Not Available [facility] [address], [place], [address], 03/12/2025 16:45:06 03/31/20 25 03/31/2025 TSH, REFLE X FREE T4 TSH 0.42 uIU/m L 0.30-5 .33 Not Available [facility] (Lab) [address], [place], [address], 04/01/2025 03:05:12 03/31/20 25 03/31/2025 CULTU RE: URINE result report SEE RESULT S BELOW Test: Cultu re: Urine Speci men Sourc e: Urine Voide d Speci men Type: Urine Speci men Date: 1710 Resul t Date: 2256 Resul t Statu s: Final resul t Abnor mal: No Resul ting Lab: [facility] [address] [facility] [address] Tel: CULTU RE ----- ----- ----- --- Cultu re resul t (>=3 organ isms prese nt) indic ates possi ble conta minat ion. Repea t cultu re if sympt oms indic ate. Not Available [facility] (Lab) [address], [place], [address], 04/01/2025 23:59:19 03/31/20 25 03/31/2025 urina lysis , dipst ick Leukocytes +1 [facility] [address], [place], [address], 03/31/2025 09:23:13 03/31/20 25 03/31/2025 urina lysis , dipst ick Nitrite normal Not Available [facility] [address], [place], [address], 03/31/2025 09:23:13 03/31/20 25 03/31/2025 urina lysis , dipst ick Urobilinogen normal Not Available [facility] david [address], [place], [address], 03/31/2025 09:23:13 03/31/20 25 03/31/2025 urina lysis , dipst ick Protein trace Not Available [facility] [address], [place], [address], 03/31/2025 09:23:13 03/31/20 25 03/31/2025 urina lysis , dipst ick pH 5 Not Available [facility] [address], [place], [address], 03/31/2025 09:23:13 03/31/20 25 03/31/2025 urina lysis , dipst ick Specific Renner 1.020 Not Available [facility] nita [address], [place], [address], 03/31/2025 09:23:13 03/31/20 25 03/31/2025 urina lysis , dipst ick Ketone normal Not Available [facility] [address], [place], [address], 03/31/2025 09:23:13 03/31/20 25 03/31/2025 urina lysis , dipst ick Bilirubin normal [facility] Available [facility] [address], [place], [address], 03/31/2025 09:23:13 03/31/20 25 03/31/2025 urina lysis , dipst ick Glucose normal Not Available [facility] [address], [place], [address], 03/31/2025 09:23:13 03/31/20 25 03/31/2025 urina lysis , dipst ick Appearance normal [facility] Available [facility] [address], [place], [address], 03/31/2025 09:23:13 03/31/20 25 03/31/2025 urina lysis , dipst ick Color normal Not Available [facility] [address], [place], [address], 03/31/2025 09:23:13 04/01/20 25 04/01/2025 WOMEN 'S HEALT H SWAB PLUS, DENIS bacterial vaginosis (bv), tma Negati ve negati ve Not Available [facility] (Lab) [address], [place], [address], 04/02/2025 14:08:45 04/01/20 25 04/01/2025 [facility], DENIS mekhi species, tma Negati ve negati ve Not Available [facility] (Lab) [address] [place], [address], 04/02/2025 14:08:45 04/01/20 25 04/01/2025 [facility], DENIS mekhi glabrata, tma Negati ve negati ve Not Available [facility] (Lab) [address] [place], [address], 04/02/2025 14:08:45 04/01/20 25 04/01/2025 [facility], DENIS trichomonas vaginalis, tma Negati ve negati ve Not Available [facility] (Lab) [address] [place], [address], 04/02/2025 14:08:45 04/01/20 25 04/01/2025 [facility], DENIS chlamydia trachomatis, PCR Negati ve negati ve Not Available [facility] (Lab) [address] [place], [address], 04/02/2025 14:08:45 04/01/20 25 04/01/2025 [facility], DENIS neisseria gonorrhoeae, PCR [...] Ampli ficat ion metho d. Tests for Ardha da glabr anaya, Trich omona s vagin sofía, Chlam ydia trach omati s, and Neiss eria gonor rhoea e are also inclu ded in this panel . Not Available [facility] (Lab) [address] [place], [address], 04/02/2025 14:08:45 04/22/2004/22/2025 CULTU RE: URINE result report SEE RESULT S BELOW Test: Cultu re: Urine Speci men Sourc e: Urine Voide d Speci men Type: Urine Speci men Date: 2024 1314 Resul t Date: 2024 0322 Resul t Statu s: Final resul t Abnor mal: No Resul ting Lab: [facility] [address] [facility] [address] Tel: CULTU RE ----- ----- ----- --- No growt h in 1 day (dete ction level of 10,00 0 colon ies / ml.) Not Available [facility] (Lab) [address], [place], [address], 04/24/2025 04:28:01 04/22/20 25 04/22/2025 urina lysis , dipst ick Leukocytes + Not Available [address], [place], [address], 04/22/2025 10:01:51 04/22/20 25 04/22/2025 urina lysis , dipst ick Protein + Not Available [facility] [address], [place], [address], 04/22/2025 10:01:51 04/22/20 25 04/22/2025 urina lysis , dipst ick pH 8 Not Available [facility] [address], [place], [address], 04/22/2025 10:01:51 04/22/20 25 04/22/2025 urina lysis , dipst ick Blood + Not Available [facility] [address], [place], [address], 04/22/2025 10:01:51 04/22/20 25 04/22/2025 urina lysis , dipst ick Specific Renner 1.010 Not Available [facility] [address], [place], [address], 04/22/2025 10:01:51 04/22/20 25 04/22/2025 urina lysis , dipst ick Ketone + Not Available [facility] [address], [place], [address], 04/22/2025 10:01:51 06/23/20 25 06/23/2025 HEMAT OCRIT (HCT) HCT 35.6 % (based on docume nted legal sex) 34.0-4 5.0 Not Available [facility] (Lab) [address] [facility], [place], [address], 06/24/2025 11:45:32 06/23/20 25 06/23/2025 HEMOG LOBIN (HGB) HGB 11.1 g/dL (based on docume nted legal sex) 11.6-1 5.4 low Not Available [facility] (Lab) [address] [facility], [place], [address], 06/24/2025 11:45:32 06/23/20 25 06/23/2025 GTT - GESTA ROLAND Hugo Sanchez, ACOG OB glucose, 1 hour screen 180 mg/dL 70-135 high Not Available [facility] (Lab) [address] [facility], [place], [address], 06/24/2025 11:45:33 06/23/20 25 06/23/2025 HIV 1/2 ANTIG EN/AN TIBOD Y, REFLE X CONFI RMATI ON HIV antigen/anti body Nonrea ctive nonrea ctive HIV-1 antig en and HIV-1 /HIV- 2 antib odies were not detec greg. No labor atory evide nce of HIV infec tion. Not Available [facility] (Lab) [address] [facility], [place], [address], 06/24/2025 11:45:33 06/23/20 25 06/23/2025 RPR SCREE N, REFLE X TITER /CONF IRMAT ION RPR qualitative Nonrea ctive nonrea ctive Not Available [facility] (Lab) [address] [facility], [place], [address], 06/24/2025 11:45:34 07/21/2007/21/2025 CULTU RE: URINE result report SEE RESULT S BELOW Test: Cultu re: Urine Speci men Sourc e: Urine - Clean Catch Speci men Type: Urine Speci men Date: 2024 1024 Resul t Date: 2024 0252 Resul t Statu s: Final resul t Abnor mal: No Resul ting Lab: [facility] [address] [facility] [address] Tel: CULTU RE ----- ----- ----- --- No growt h in 1 day (dete ction level of 10,00 0 colon ies / ml.) Not Available [facility] (Lab) [address], [place], [address], 07/23/2025 03:57:01 07/21/2007/21/2025 urina lysis , dipst ick Leukocytes ++ Not Available [address], [place], [address], 07/21/2025 11:03:04 07/21/20 25 07/21/2025 urina lysis , dipst ick Nitrite neg Not Available [facility] [address] [place], [address], 07/21/2025 11:03:04 07/21/20 25 07/21/2025 urina lysis , dipst ick Urobilinogen neg Not Available [facility] [address], [place], [address], 07/21/2025 11:03:04 07/21/20 25 07/21/2025 urina lysis , dipst ick Protein + Not Available [facility] [address], [place], [address], 07/21/2025 11:03:04 07/21/20 25 07/21/2025 urina lysis , dipst ick pH 5 Not Available [facility] [address], [place], [address], 07/21/2025 11:03:04 07/21/20 25 07/21/2025 urina lysis , dipst ick Specific Renner 1.030 Not Available [facility] nita [address], [place], [address], 07/21/2025 11:03:04 07/21/20 25 07/21/2025 urina lysis , dipst ick Ketone +++ Not Available [facility] [address], [place], [address], 07/21/2025 11:03:04 07/21/20 25 07/21/2025 urina lysis , dipst ick Bilirubin neg Not Available [facility] [address], [place], [address], 07/21/2025 11:03:04 07/21/20 25 07/21/2025 urina lysis , dipst ick Glucose neg Not Available [facility] [address], [place], [address], 07/21/2025 11:03:04 07/21/20 25 07/21/2025 urina lysis , dipst ick Appearance cloudy Not Available [facility] [address], [place], [address], 07/21/2025 11:03:04 07/21/20 25 07/21/2025 urina lysis , dipst ick Color dark Not Available [facility] [address], [place], [address], 07/21/2025 11:03:04 08/04/20 25 08/04/2025 CMP(C OMPRE HENSI VE METAB OLIC PANEL ) sodium 138 mmol/ L 133-14 6 Not Available [facility] (Lab) [address] [facility], [place], [address], 08/05/2025 13:39:18 08/04/20 25 08/04/2025 CMP(C OMPRE HENSI VE METAB OLIC PANEL ) potassium 4.0 mmol/ L 3.5-5. 1 Not Available [facility] (Lab) [address] [facility], [place], [address], 08/05/2025 13:39:18 08/04/20 25 08/04/2025 CMP(C OMPRE HENSI VE METAB OLIC PANEL ) chloride 105 mmol/ L 98-107 Not Available [facility] (Lab) [address] [facility], [place], [address], 08/05/2025 13:39:18 08/04/20 25 08/04/2025 CMP(C OMPRE HENSI VE METAB OLIC PANEL ) carbon dioxide 25 mmol/ L 21-31 Not Available [facility] (Lab) [address] [place], [address], 08/05/2025 13:39:18 08/04/20 25 08/04/2025 CMP(C OMPRE HENSI VE METAB OLIC PANEL ) anion gap 8 mmol/ L 4-13 Not Available [facility] (Lab) [address], [place], [address], 08/05/2025 13:39:18 08/04/20 25 08/04/2025 CMP(C OMPRE HENSI VE METAB OLIC PANEL ) blood urea nitrogen 10 mg/dL 7-25 Not Available [facility] (Lab) [address] [facility], [place], [address], 08/05/2025 13:39:18 08/04/20 25 08/04/2025 CMP(C OMPRE HENSI VE METAB OLIC PANEL ) creatinine 0.41 mg/dL 0.60-1 .30 low Not Available [facility] (Lab) [address] [facility], [place], [address], 08/05/2025 13:39:18 08/04/20 25 08/04/2025 CMP(C OMPRE HENSI VE METAB OLIC PANEL ) egfrcr (CKD-epi 2020) >90 mL/mi n/1.7 3_m2 >=60 Not Available [facility] (Lab) [address] [facility], [place], [address], 08/05/2025 13:39:18 08/04/20 25 08/04/2025 CMP(C OMPRE HENSI VE METAB OLIC PANEL ) calcium 8.9 mg/dL 8.3-10 .5 Not Available [facility] (Lab) [address] [facility], [place], [address], 08/05/2025 13:39:18 08/04/20 25 08/04/2025 CMP(C OMPRE HENSI VE METAB OLIC PANEL ) glucose 116 mg/dL 70-100 high Not Available [facility] (Lab) [address] [facility], [place], [address], 08/05/2025 13:39:18 08/04/20 25 08/04/2025 CMP(C OMPRE HENSI VE METAB OLIC PANEL ) protein, total 6.1 g/dL 6.4-8. 3 low Not Available [facility] (Lab) [address] [facility], [place], [address], 08/05/2025 13:39:18 08/04/20 25 08/04/2025 CMP(C OMPRE HENSI VE METAB OLIC PANEL ) albumin 3.5 g/dL 3.5-5. 0 Not Available [facility] (Lab) [address] [facility], [place], [address], 08/05/2025 13:39:18 08/04/20 25 08/04/2025 CMP(C OMPRE HENSI VE METAB OLIC PANEL ) ALT 11 units /L 9-43 Not Available [facility] (Lab) [address] [facility], [place], [address], 08/05/2025 13:39:18 08/04/20 25 08/04/2025 CMP(C OMPRE HENSI VE METAB OLIC PANEL ) alkaline phosphatase 98 units /L 34-104 Not Available [facility] ([facility]) [address] [facility], [place], [address], 08/05/2025 13:39:18 08/04/20 25 08/04/2025 CMP(C OMPRE HENSI VE METAB OLIC PANEL ) AST 15 units /L 13-39 Not Available [facility] (Lab) [address] [facility], [place], [address], 08/05/2025 13:39:18 08/04/20 25 08/04/2025 CMP(C OMPRE HENSI VE METAB OLIC PANEL ) bilirubin, total 0.3 mg/dL 0.2-1. 2 Not Available [facility] (Lab) [address] [place], [address], 08/05/2025 13:39:18 08/04/20 25 08/04/2025 BILE ACIDS , TOTAL bile acids, total 4 umol/ L 0-10 Test [facility]fo [facility]: [facility] [address] [address] Not Available [facility] (Lab) [address] [place], [address], 08/05/2025 13:39:19 03/02/20 25 03/02/2025 US, obste tric, nucha l trans lucen cy No observ ation record ed. [email or web address] [facility] [address], [place], [address], 03/02/2025 13:35:30 03/02/20 25 03/02/2025 US, obste tric, nucha l trans lucen cy No observ ation record ed. [email or web address] [facility] [address], [place], [address], 03/03/2025 14:08:39 03/08/20 25 03/08/2025 US, obste tric, 1st trime ster No observ ation record ed. [email or web address] [facility] [address], [place], [address], 03/08/2025 12:22:22 03/08/20 25 03/08/2025 US, obste tric, 1st trime ster No observ ation record ed. [email or web address] [facility] [address], [place], [address], 03/10/2025 15:03:13 04/01/20 25 03/24/2025 [email or web address] r monit or No observ ation record ed. [address], [address], 04/08/2025 12:36:45 04/01/20 25 03/22/2025 [email or web address] r monit or No observ ation record ed. [address] (Pulmonary) [address] [place] [address], [address], 04/06/2025 08:59:34 04/20/20 25 04/20/2025 US, obste tric, limit ed No observ ation record ed. [email or web address] [facility] [address], [place], [address], 04/20/2025 17:39:30 04/20/20 25 04/20/2025 US, obste tric, follo w-up No observ ation record ed. [facility] [address], [place], [address], 04/23/2025 08:32:54 04/28/20 25 04/28/2025 US, obste tric, 2nd or 3rd trime ster No observ ation record ed. [email or web address] [facility] [address], [place], [address], 04/28/2025 17:48:42 04/28/20 25 04/28/2025 US, obste tric, 2nd or 3rd trime ster No observ ation record ed. [email or web address] [facility] [address], [place], [address], 05/04/2025 22:16:11 05/07/20 25 05/07/2025 non-s tress test No observ ation record ed. [address], [place], [address], 05/28/2025 13:33:54 05/21/20 25 05/21/2025 CT, head + brain , w/o contr ast No observ ation record ed. [id number], [place], [address], 05/24/2025 13:48:57 05/28/20 25 05/28/2025 US, obste tric, follo w-up No observ ation record ed. [email or web address] [facility] [address], [place], [address], 05/28/2025 17:32:34 05/28/20 25 05/28/2025 US, obste tric, follo w-up No observ ation record ed. [email or web address] [facility] [address], [place], [address], 06/01/2025 15:13:13 06/08/20 25 06/07/2025 US, obste tric, follo w-up No observ ation record ed. [email or web address] [facility] [address] [facility], [place], [address], 06/15/2025 10:53:46 07/07/2007/07/2025 US, obste tric, follo w-up No observ ation record ed. [email or web address] [facility] [address], [place], [address], 07/07/2025 13:18:01 07/07/20 25 07/07/2025 US, obste tric, follo w-up No observ ation record ed. [email or web address] [address] [address], [place], [address], 07/07/2025 11:29:37 08/04/2008/04/2025 US, obste tric, follo w-up No observ ation record ed. [email or web address] [facility] [address], [place], [address], 08/04/2025 15:08:50 08/04/20 25 08/04/2025 US, obste tric, follo w-up No observ ation record ed. [email or web address] [facility] [address], [place], [address], 08/06/2025 10:41:50 08/11/2008/11/2025 non-s tress test No observ ation record ed. [email or web address] [facility] [address], [place], [address], 08/11/2025 17:37:52 08/11/20 non-s tress test No observ ation record ed. [email or web address] [facility] [address], [place], [address], 08/11/2025 17:38:11 08/15/2008/15/2025 non-s tress test No observ ation record ed. [address], [place], [address], 08/21/2025 10:18:57 08/15/2008/15/2025 US, obste tric, bioph ysica l profi le No observ ation record ed. [place] [id number] [facility] [address], [place], [address], 08/17/2025 10:50:53 08/18/2008/18/2025 US, obste tric, bioph ysica l profi le + non-s tress test No observ ation record ed. [email or web address] [facility] [address], [place], [address], 08/18/2025 10:21:39 08/18/2008/18/2025 US, obste tric, bioph ysica l profi le + non-s tress test No observ ation record ed. [email or web address] [facility] [address] [address], [place], [address], 08/18/2025 10:35:44 08/18/2008/18/2025 non-s tress test No observ ation record ed. [email or web address] [facility] [address], [place], [address], 08/18/2025 17:34:03 08/18/20 non-s tress test No observ ation record ed. [email or web address] [facility] [address], [place], [address], 08/18/2025 16:06:09 08/25/2021 0808/25/2025 US, obste tric, bioph ysica l profi le + non-s tress test No observ ation record ed. [email or web address] [facility] [address], [place], [address], 08/25/2025 18:52:06 08/25/20 25 08/25/2025 US, obste tric, follo w-up No observ ation record ed. [email or web address] [address] [address], [place], [address], 08/25/2025 15:47:28 08/25/2008/25/2025 non-s tress test No observ ation record ed. [address], [place], [address], 08/25/2025 18:12:15 08/25/20 non-s tress test No observ ation record ed. [email or web address] [facility] [address], [place], [address], 08/25/2025 17:21:19 08/30/20 25 08/30/2025 non-s tress test No observ ation record ed. [place] [id number] [facility] [address] [facility], [place], [address], 09/15/2025 15:26:49 09/01/20 25 09/01/2025 non-s tress test No observ ation record ed. [email or web address] [facility] [address], [place], [address], 09/13/2025 11:32:22 09/01/20 25 09/01/2025 US, obste tric No observ ation record ed. [email or web address] [place] [address] [address] [facility] [address], [place], [address], 09/02/2025 15:56:01 09/01/20 25 09/01/2025 non-s tress test No observ ation record ed. [email or web address] [facility] [address], [place], [address], 09/02/2025 14:32:38 09/16/20 25 09/16/2025 CT, angio gram, head + neck, w/ contr ast No observ ation record ed. [email or web address] [facility] [address], [place], [address], 09/16/2025 20:01:05 09/28/20 25 09/28/2025 non-s tress test No observ ation record ed. [email or web address] [facility] [address], [place], [address], 10/04/2025 16:42:40 Result Notes None recorded. Problems Name Problem SNOMED Code Status Onset Date Resolution Date Notes Provider Name and Address Organization Details Recorded Time Hypereme sis 513110187 Completed phenerga n now prn Asia ramos [facility] 2 16:43:51 Anxiety in pregnanc y [id number] Completed will continue to monitor Asia ramos [facility] 2 16:43:51 Past pregnanc y history of gestatio nal diabetes mellitus [id number] Completed Early 1 hr GTT @ 20wks 11/03 APPT Asia ramos [facility] 2 16:43:51 Spinal muscular atrophy [id number] Completed Carrier - Not in contact with FOB. Asia ramos [facility] 2 16:43:51 Anxiety 27141049 Completed prozac Karina ramos [facility] 4 11:00:46 Nausea [id number] Completed d/c zofran pump 11/08 per pt request Karina ramos [facility] 4 11:00:46 Postpart um [email or web address] ge [id number] Completed 2017 with d&c Karina ramos, [facility] 4 11:00:46 Normal pregnanc y in multigra jessy [id number] 48764 Completed 201907/05/2021 Encounte r for supervis ion of other normal pregnanc y, 3rd trimeste r;Record ed Elsewher e: No Locat ion: [facility] S ource: EHR Front End Mechanic yvrose: N Natalyati ce ID: [id number] Gigi lable Time: 10:45:00 AM Karina ramos [facility] 10:15:27 Gestatio n period, 37 weeks 01922579 Completed 201907/05/2021 37 weeks gestatio n of pregnanc y;Record ed Elsewher e: No [facility]: EHR Front End Mechanic yvrose: N Natalyati ce ID: 0001 Gigi lable Time: 09:00:00 AM Karina ramos [facility] 10:15:[address] Concept Completed 201907/05/2021 Matern care for abnlt fetl hrt rate or rhym, 3rd tri, unsp;Rec orded Elsewher e: No [facility] our[facility]: EHR Front End Mechanic yvrose: N Practi ce ID: 0001 Gigi lable Time: 08:45:00 AM Karina ramos [facility] 10:15:29 Gestatio nal diabetes mellitus 17133523 Completed 201907/05/2021 Gestatio nal diabetes mellitus in pregnanc y, diet controll ed;Recor ded Elsewher e: No Locat ion: Jaelyn castillo [facility] S ource: EHR Front End Mechanic yvrose: N Practi ce ID: 0001 Gigi lable Time: 11:45:00 AM Karina ramos [facility] 10:15:25 Gestatio n period, 38 weeks [id number] Completed 201907/05/2021 38 weeks gestatio n of pregnanc y;Record ed Elsewher e: No Locat ion: Jaelyn castillo [facility] S ource: EHR Front End Mechanic yvrose: N Practi ce ID: 0001 Gigi lable Time: 11:30:00 AM Karina ramos, [facility] 10:15:13 Amenorrh ea 14813861 Completed 202007/10/2021 Tammi Jones null, [facility] 13:08:35 Pregnanc y 27037968 Completed 202003/29/2022 Emma Dykes [facility], [facility] 5 12:28:48 Pregnanc y 18690247 Completed 202304/22/2024 Emma ramos, [facility] 5 12:28:48 Headache 08970223 Active 2023 Karina ramos, [facility] 5 16:19:28 Pregnanc y 20986843 Completed 202309/14/2025 Emma ramos, [facility] 5 12:28:48 Uncompli cated moderate persiste nt asthma 287319366 Completed 2024 albutero l prn Shawn Bradley MD [address], [place], [address], [facility] 13:08:36 Anxiety 44698364 Completed 2024 sertrali ne started 03/02/25 changed to prozac 10 on Shawn Bradley MD [address], [place], [address], [facility] 5 17:05:48 Nausea and vomiting 81014074 Completed 2024 Shawn Bradley MD [address], [place], [address], [facility] 5 13:20:27 Placenta circumva llata 1115778 Completed 2024 32wk [facility] 09:44:35 Frequent headache 033666544 Completed [address] [facility] [...] than 2-3 times a week. Ryann ramos [facility] 5 10:55:26 Abnormal placenta affectin g manageme nt of mother 00435532 Completed 2024 MCI serial growth Ryann ramos [facility] 5 10:46:25 Iron deficien cy anemia 85478351 Completed 2024 SS MFM tx venofer 200mg x1 HGB 10.6 Ryann ramos [facility] 5 15:21:25 Gestatio nal diabetes mellitus 91887884 Completed 2024 checking bs QID - ruled in GDM Referral faxed to [facility] 07/07 Ryann ramos [facility] 14:36:52 Notes:[facility], and home health already caring for ptHilda Vladimir RN at [phone] Problem Notes None recorded. Procedures Surgical History Date Name Laterality Status Provider Name and Address Organization Details Recorded Time 025 SALPINGECTOMY, LAPAROSCOPIC (SURG) completed Not Available [facility] 09/06/2025 11:19:17 025 Date of Last Pap Smear completed Karina Burroughs [facility] 01/28/2025 11:19:42 024 Nexplanon Removal completed Shawn Bradley MD [address], [place], [address], [facility] 08/05/2024 15:09:58 024 Control Implant Insertion completed Anju Mcnamara CNM [address], [place], [address], [facility] 05/08/2024 [...] Name and Address Organization Details Recorded Time 80406 terbutali ne medicatio n anaphylax is Not available Not available 01/27/20252021 26955 RxNorm Karina ramos [facility] 16:19:27 63631 amoxicill in medicatio n Not available Not available Not available 09/10/2025 723 RxNorm Not Available gene - External Data Service - prod 16:39:37 52612 terbinafi ne medicatio n anaphylax is Not available high 09/10/20252024 44152 RxNorm Not Available gene - External Data [...] Prescrib ed Elsewher e: Yes [facility] odify By: prabhjot barrera DateTime : 01/14/20 [...] n (supplie d by office) insert lot [id number] Exp 01/2026 Not Available Not Available Not Available 28 mg iron-800 mcg tablet 07/05 completed Prescrib ed Elsewher e: Yes Loca [facility] odify By: prabhjot Lee r DateTime : 01/14/20 10:45:00 AM Not Available Not Available Not Available lidocaine 5 % topical ointment APPLY OINTMENT EXTERNAL LY TO RIBS THREE TIMES DAILY NEEDED 01/14 completed Not Available Not Available Not Available 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 12:29:23 Social History Question Answer Notes LastModified by Organizat ion Details LastModified Time Tobacco Smoking Status Former Smoker Karina ramos, [facility] 07/05/2021 09:06:21 If You Are , What Was Your Level Of Alcohol Consumption Prior To ? Occasional [email or web address] Information not available 03/31/2025 Are You Blind Or Do You Have Difficulty Seeing? No Information not available 07/05/2021 What Is Your Level Of Caffeine Consumption? Heavy Information not available 07/05/2021 In The 14 Days Before Symptom Onset, Have You Had Close Contact With A Laboratory-confir med COVID-19 While That Case Was Ill? No [email or web address] Information not available 07/05/2021 In The 14 Days Before Symptom Onset, Have You Had Close Contact With A Person Who Is Under Investigation For COVID-19 While That Person Was Ill? No [email or web address] Information not available 07/05/2021 Have You Been To An Area Known To Be High Risk For COVID-19? No [email or web address] Information not available 07/05/2021 Are You Deaf Or Do You Have Serious Difficulty Hearing? No [email or web address] Information not available 07/05/2021 What Type Of Diet Are You Following? REGULAR [email or web address] Information not available 07/05/2021 Which Illicit Or Recreational Drugs Have You Used? Marijuana [email or web address] Information not available 07/05/2021 Have You Ever Been Counseled For Unhealthy Alcohol Use? No [email or web address] Information not available 07/05/2021 Do You Use Your Seat Belt Or Car Seat Routinely? Yes [email or web address] Information not available 07/05/2021 Do You Have Smoke And Carbon Monoxide Detectors In Your Home? Yes [email or web address] Information not available 07/05/2021 Do You Use Sunscreen Routinely? Yes [email or web address] Information not available 07/05/2021 Has Tobacco Cessation Counseling Been Provided? No [email or web address] Information not available 07/05/2021 Have You Used IV Drugs? No [email or web address] Information not available 07/05/2021 Do You Have Difficulty Walking Or Climbing Stairs? No [email or web address] Information not available 12/06/2021 Sex: Unknown Functional Status Question Answer Note LastModified by Organizat ion Details LastModified Time Do you use any illicit or recreational drugs? Yes [email or web address] Information not available 07/05/2021 Do you or have you ever used any other forms of tobacco or nicotine? Yes [email or web address] Information not available 07/05/2021 What is your level of alcohol consumption? None [email or web address] Information not available 03/31/2025 Do you or have you ever used smokeless tobacco? Never used smokeless tobacco [email or web address] Information not available 07/05/2021 Are you able to walk independently without assistance or assistive devices? YESWOREST [email or web address] Information not available 07/05/2021 Are you able to care for yourself independently? Yes [email or web address] Information not available 12/06/2021 Do you have difficulty dressing, bathing, grooming, or toileting? No Information not available 12/06/2021 Do you or have you ever used e-cigarettes or vape? Current user of electronic cigarettes [email or web address] Information not available 07/05/2021 What is your exercise level? Occasional [email or web address] Information not available 07/05/2021 Mental Status Question Answer Note LastModified by Organization D etails LastModified Time Do you feel stressed (tense, restless, nervous, or anxious, or unable to sleep at night)? [id number] [email or web address] Information not available 07/05/2021 Family History Relationship Description Onset Age of this Age Resolved Age Notes LastModified by Organization Details LastModified Time Father No current problems or disability Not available 05/2021 09:06:31 Mother No current problems or disability [email or web address] Not available 05/2021 09:06:31 Medical History Condition [...] ICD10 Code Diagnosis IMO Codes Diagnosis Note [id number] Shawn Bradley MD [facility] [address],[place] [address] 08/18/2025 09:40:51 08/18/2025 10:15:47 Gestational diabetes mellitus 64920483 O24.414 Z3A.36 [id number] Anju Mcnamara [facility] [address],[place] [address] 08/18/2025 09:41:06 08/18/2025 11:24:04 Gestation period, 36 weeks 76687738 Z3A.36 1372778 cont pnv [id number] Anju Mcnamara [facility] [address],[place] [address] 08/18/2025 09:41:16 08/18/2025 16:17:31 Gestational diabetes mellitus class A2 86777481 O24.414 25992271 [id number] Shawn Bradley MD [facility] [address],[place] [address] 08/25/2025 14:26:29 08/25/2025 15:14:02 Gestational diabetes mellitus 77857181 O24.414 12974930 [id number] Anju Mcnamara [facility] [address],[place] [address] 08/25/2025 14:26:57 08/25/2025 15:53:52 Gestation period, 37 weeks 74798369 Z3A.37 2676389 continue vitamin [id number] Anju Mcnamara [facility] [address],[place] [address] 08/25/2025 16:48:00 08/25/2025 17:20:42 Gestational diabetes mellitus 42695732 O24.419 [id number] [id number] Shawn Bradley MD [facility] [address],[place] [address] 09/13/2025 15:30:32 09/13/2025 20:43:16 [id number] Shawn Bradley MD [facility] [address],[place] [address] 09/14/2025 12:04:57 09/15/2025 08:16:47 Anxiety 46751778 F41.9 60047 this patient presents for severe anxiety. She [...] Date Sequence Insurance Name Policy Number Policy Orberts Covered Member ID Roberts Member ID Guarantor Name 09/14/2025 1 [facility] (MEDICAID HMO) [id number] Yuni Mejia [id number] Yuni Mejia Notes Date Note Type Note [...] instructions. Shawn Bradley MD [address], [place], [address], [facility] 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 Status 03/02/20 25 1 B Positive 164 CLOSED Fetus Data First Name Last Name Admitted to NICU Weight (g) Sex Living Outcome Pediatric Complications Fetus ID Race Codes Race Delivery Type Ziah false 4025.62 9 F true Full Term 37287 Vaginal Delivery Problems Problem Notes SDH form completed 5GI consult Tachycardia Holter monitor 72 order- pt sent back on 03-27-25 Cardiology referral faxed per Dr Martínez office calling pt 04/21 to schedule consult scheduled 05/11 11:15AM Problem Name Start Date End Date Resolution Snomed Code Not e Uncomplicated moderate persistent asthma 03/02/2025 467327200 albuterol prn Abnormal placenta affecting management of mother 05/04/2025 18325158 MCI serial grow th us Iron deficiency anemia 05/25/2025 46201448 [facility] M[facility] tx [place] 200mg x1 HGB 10.6 Nausea and vomiting 03/02/2025 49961168 Anxiety 03/02/2025 85138614 sertralin e started 03/02/25 changed to prozac 10 on Gestational diabetes mellitus 07/08/2025 51463532 checking bs QID - ruled in GDM Referral faxed to [facility] 07/07 Frequent headache 05/03/2025 [id number] [place] to [facility] 05/21, discharge 05/23 MFM referral faxed 05/24 SS Neurology consult pending per KAJAL Pittman [facility] unable to see pt due to insurance 05/[facility] 07/05/25 Level US & Consult (see MF consult zayas recommendations ) regimen prn Imitrex 50mg for acute migraine, vitamin B2 (Riboflavin) 400mg, Coenzyme q10 300mg and magnesium oxide 200 to 600mg daily. minimize use of Excedrin or Tylenol to no more than 2-3 times a week. 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/2025 4196188 32wk growth us Jun Calculation Initial Jun [...] Weight in lbs Pre/Post Dialysis Refused Weight 158.867368872868 BP Diastolic BP Location Tested BP Systolic [...] Weight in lbs Pre/Post Dialysis Refused Weight 158.580325184380 BP Diastolic BP Location Tested BP Systolic [...] Weight in lbs Pre/Post Dialysis Refused Weight 162.983079726702 BP Diastolic BP Location Tested BP Systolic [...] Type Weight in lbs Pre/Post Dialysis Refused 168.746843479245 BP Diastolic BP Location Tested BP Systolic [...] Type Weight in lbs Pre/Post Dialysis Refused 169.934952379899 BP Diastolic BP Location Tested BP Systolic [...] Weight in lbs Pre/Post Dialysis Refused Weight 175.499789105743 BP Diastolic BP Location Tested BP Systolic [...] Weight in lbs Pre/Post Dialysis Refused Weight 182.479691445462 BP Diastolic BP Location Tested BP Systolic [...] Weight in lbs Pre/Post Dialysis Refused Weight 181.565213873582 BP Diastolic BP Location Tested BP Systolic BP Type 73 L arm 131 sitting Fetus Heart Rate Present Fetus Movement A Yes Comments viral URI testied neg at urg ent care, nausea resolved, efw 68%, +FM plan education and precautions f/u 2 weeks diagnosed GDM, 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, gave list reviewed protein vs carb Flowsheet Date 07/21/2025 Gibson Score Blood Edema Fundus Height Fundus Units Glucose Ketones Leukocytes Nitrite Labor Signs Protein Cervic Dilation Cervic Effacement Cervic Station Type Weight in lbs Pre/Post Dialysis Refused Weight 181.045264155265 BP Diastolic BP Location Tested BP Systolic BP Type 78 L arm 127 sitting Fetus Heart Rate Present A 150 Fetus Movement A Yes Comments rpt urine culture +FM review ed blood sugars, meets with semiconductor development technician today, precautions and education f/u 2 [...] Weight in lbs Pre/Post Dialysis Refused Weight 181.986514848149 BP Diastolic BP Location Tested BP Systolic [...] Weight in lbs Pre/Post Dialysis Refused Weight 183.601815369065 BP Diastolic BP Location Tested BP Systolic [...] Type Weight in lbs Pre/Post Dialysis Refused 184.408795104540 BP Diastolic BP Location Tested BP Systolic [...] Type Weight in lbs Pre/Post Dialysis Refused 184.135943595556 BP Diastolic BP Location Tested BP Systolic [...] Present Fetus Movement Comments Flowsheet Date 08/25/2025 Gibsno Score Blood Edema Fundus Height Fundus Units Glucose Ketones Leukocytes Nitrite Labor Signs Protein Cervic Dilation Cervic Effacement Cervic Station Type Weight in lbs Pre/Post Dialysis Refused 184.567999030048 BP Diastolic BP Location Tested BP Systolic [...] Weight in lbs Pre/Post Dialysis Refused Weight 184.083372704228 BP Diastolic BP Location Tested BP Systolic [...] Weight in lbs Pre/Post Dialysis Refused Weight 164.300201088393 BP Diastolic BP Location Tested BP Systolic [...]
--- OUTSIDE RECORDS SUMMARY | 2025-10-27 12:15 | XMS_ITS | Continuity of Care Document ---
Author Organization [facility] [place], [facility] Address [address] [place] [address] [place] [address] Care Team Providers Care Guide Setter Name Role Phone ACRLOS ESTRADA Primary Care Provider Assessment No assessment recorded. Plan of Treatment Reminders Order Date Submit Date Provider Last Modified By Organization Details Last Modified Time Details Appointments None record ed. Lab None record ed. Referral None record ed. Procedures None record ed. Surgeries None record ed. Imaging non-st ress test 025 08/25/20 25 [email or web address] [address], [address], [place], [address], 17:20:42 Medication Orders None record ed. Patient TargetsNo targets recorded. Patient InstructionsNo instructions recorded. Reason for Referral None Reported. Results Created Date Observation Date Name Description Value Unit Range Abnormal Flag Note LastModifiedBy Organization Detail LastModifiedTime 03/06/20 25 03/06/2025 [UNIT Y] ANEUP LOIDY NIPT fraction 5.7% normal Not Available [facility] [address], [place], [address], 03/06/2025 03:58:26 03/06/20 25 03/06/2025 [UNIT Y] ANEUP LOIDY NIPT sex chromosome aneuploidy NOT DETECT ED normal Not Available [facility] [address], [place], [address], 03/06/2025 03:58:26 03/06/20 25 03/06/2025 [UNIT Y] ANEUP LOIDY NIPT monosomy X LOW RISK <1 in 10,000 normal Not Available [facility] [address], [place], [address], 03/06/2025 03:58:26 03/06/20 25 03/06/2025 [UNIT Y] ANEUP LOIDY NIPT trisomy 13 LOW RISK <1 in 10,000 normal Not Available [facility] [address], [place], [address], 03/06/2025 03:58:26 03/06/20 25 03/06/2025 [UNIT Y] ANEUP LOIDY NIPT trisomy 18 LOW RISK <1 in 10,000 normal Not Available [facility] [address], [place], [address], 03/06/2025 03:58:26 03/06/20 25 03/06/2025 [UNIT Y] ANEUP LOIDY NIPT trisomy 21 LOW RISK <1 in 10,000 normal Not Available [facility] [address], [place], [address], 03/06/2025 03:58:26 03/06/20 25 03/06/2025 [UNIT Y] ANEUP LOIDY NIPT sex FEMALE normal Not Available [facility] [address], [place], [address], 03/06/2025 03:58:26 03/06/20 25 03/06/2025 [UNIT Y] ANEUP LOIDY NIPT gestation SINGLE TON normal Not Available [facility] [address], [place], [address], 03/06/2025 03:58:26 03/06/20 25 03/06/2025 [UNIT Y] ANEUP LOIDY NIPT for detailed report, see pdf See PDF normal Not Available [facility] [address], [place], [address], 03/06/2025 03:58:26 03/02/20 25 03/02/2025 CULTU RE: URINE result report SEE RESULT S BELOW Test: Cultu re: Urine Speci men Sourc e: Urine - Clean Catch Speci men Type: Urine Speci men Date: 025 1455 Resul t Date: 025 2138 Resul t Statu s: Final resul t Abnor mal: No Resul ting Lab: [facility] [address] [facility] [address] Tel: CULTU RE ----- ----- ----- --- No growt h in 1 day (dete ction level of 10,00 0 colon ies / ml.) Not Available [facility] (Lab) [address] [facility], [place], [address], 03/03/2025 22:42:27 03/12/2003/12/2025 CULTU RE: URINE result report SEE RESULT S BELOW Test: Cultu re: Urine Speci men Sourc e: Urine - Clean Catch Speci men Type: Urine Speci men Date: 2024 1600 Resul t Date: 2024 0610 Resul t Statu s: Final resul t Abnor mal: No Resul ting Lab: [facility] [address] [facility] [address] Tel: CULTU RE ----- ----- ----- --- No growt h in 1 day (dete ction level of 10,00 0 colon ies / ml.) Not Available [facility] (Lab) [address] [facility], [place], [address], 03/14/2025 07:15:03 03/12/2003/12/2025 urina lysis , dipst ick Leukocytes ++ Not Available [address], [place], [address], 03/12/2025 16:45:06 03/12/2003/12/2025 urina lysis , dipst ick Protein + Not Available [facility] [address], [place], [address], 03/12/2025 16:45:06 03/12/20 25 03/12/2025 urina lysis , dipst ick pH 5 Not Available [facility] [address], [place], [address], 03/12/2025 16:45:06 03/12/20 25 03/12/2025 urina lysis , dipst ick Blood trace Not Available [facility] [address], [place], [address], 03/12/2025 16:45:06 03/12/20 25 03/12/2025 urina lysis , dipst ick Specific [place] 1.015 Not Available [facility] [address], [place], [address], 03/12/2025 16:45:06 03/12/20 25 03/12/2025 urina lysis , dipst ick Ketone +++ Not Available [facility] [address], [place], [address], 03/12/2025 16:45:06 03/31/20 25 03/31/2025 TSH, REFLE X FREE T4 TSH 0.42 uIU/m L 0.30-5 .33 Not Available [facility] (Lab) [address], [place], [address], 04/01/2025 03:05:12 03/31/20 25 03/31/2025 CULTU RE: URINE result report SEE RESULT S BELOW Test: Cultu re: Urine Speci men Sourc e: Urine Voide d Speci men Type: Urine Speci men Date: 1710 Resul t Date: 6 Resul t Statu s: Final resul t Abnor mal: No Resul ting Lab: [facility] [address] [facility] [address] Tel: CULTU RE ----- ----- ----- --- Cultu re resul t (>=3 organ isms prese nt) indic ates possi ble conta minat ion. Repea t cultu re if sympt oms indic ate. Not Available [facility] (Lab) [address] [facility], [place], [address], 04/01/2025 23:59:19 03/31/20 25 03/31/2025 urina lysis , dipst ick Leukocytes +1 Not Available [address], [place], [address], 03/31/2025 09:23:13 03/31/20 25 03/31/2025 urina lysis , dipst ick Nitrite normal Not Available [facility] [address], [place], [address], 03/31/2025 09:23:13 03/31/20 25 03/31/2025 urina lysis , dipst ick Urobilinogen normal Not Available [facility] [address], [place], [address], 03/31/2025 09:23:13 03/31/20 25 03/31/2025 urina lysis , dipst ick Protein trace Not Available [facility] [address], [place], [address], 03/31/2025 09:23:13 03/31/20 25 03/31/2025 urina lysis , dipst ick pH 5 Not Available [facility] [address], [place], [address], 03/31/2025 09:23:13 03/31/20 25 03/31/2025 urina lysis , dipst ick Specific [place] 1.020 Not Available [facility] [address], [place], [address], 03/31/2025 09:23:13 03/31/20 25 03/31/2025 urina lysis , dipst ick Ketone normal Not Available [facility] [address], [place], [address], 03/31/2025 09:23:13 03/31/20 25 03/31/2025 urina lysis , dipst ick Bilirubin normal Not Available [facility] [address], [place], [address], 03/31/2025 09:23:13 03/31/20 25 03/31/2025 urina lysis , dipst ick Glucose normal Not Available [facility] [address], [place], [address], 03/31/2025 09:23:13 03/31/20 25 03/31/2025 urina lysis , dipst ick Appearance normal Not Available [facility] [address], [place], [address], 03/31/2025 09:23:13 03/31/20 25 03/31/2025 urina lysis , dipst ick Color normal Not Available [facility] [address], [place], [address], 03/31/2025 09:23:13 04/01/20 25 04/01/2025 WOMEN 'S HEALT H SWAB PLUS, DENIS bacterial vaginosis (bv), tma Negati ve negati ve Not Available [facility] (Lab) [address] [place], [address], 04/02/2025 14:08:45 04/01/20 25 04/01/2025 [facility], DENIS mekhi species, tma Negati ve negati ve Not Available [facility] (Lab) [address] [place], [address], 04/02/2025 14:08:45 04/01/20 25 04/01/2025 WOMEN 'S HEALT H SWAB PLUS, DENIS mekhi glabrata, tma Negati ve negati ve Not Available [facility] (Lab) [address] [place], [address], 04/02/2025 14:08:45 04/01/20 25 04/01/2025 [facility], DENIS trichomonas vaginalis, tma Negati ve negati ve Not Available [facility] (Lab) [address] [facility], [place], [address], 04/02/2025 14:08:45 04/01/20 25 04/01/2025 [facility], DENIS chlamydia trachomatis, PCR Negati ve negati ve Not Available [facility] (Lab) [address] [place], [address], 04/02/2025 14:08:45 04/01/20 25 04/01/2025 [facility], DENIS neisseria [...] ded in this panel . Not Available [facility] (Lab) [address] [place], [address], 04/02/2025 14:08:45 04/22/2004/22/2025 CULTU RE: URINE result report SEE RESULT S BELOW Test: Cultu re: Urine Speci men Sourc e: Urine Voide d Speci men Type: Urine Speci men Date: 2024 1314 Resul t Date: 2024 0322 Resul t Statu s: Final resul t Abnor mal: No Resul ting Lab: [facility] [address] [facility] [address] Tel: CULTU RE ----- ----- ----- --- No growt h in 1 day (dete ction level of 10,00 0 colon ies / ml.) Not Available [facility] (Lab) [address], [place], [address], 04/24/2025 04:28:01 04/22/20 25 04/22/2025 urina lysis , dipst ick Leukocytes + Not Available [address], [place], [address], 04/22/2025 10:01:51 04/22/20 25 04/22/2025 urina lysis , dipst ick Protein + Not Available [facility] [address], [place], [address], 04/22/2025 10:01:51 04/22/20 25 04/22/2025 urina lysis , dipst ick pH 8 Not Available [facility] [address], [place], [address], 04/22/2025 10:01:51 04/22/20 25 04/22/2025 urina lysis , dipst ick Blood + Not Available [facility] [address], [place], [address], 04/22/2025 10:01:51 04/22/2004/22/2025 urina lysis , dipst ick Specific [place] 1.010 Not Available [facility] [address], [place], [address], 04/22/2025 10:01:51 04/22/2004/22/2025 urina lysis , dipst ick Ketone + Not Available [facility] [address], [place], [address], 04/22/2025 10:01:51 06/23/2006/23/2025 HEMAT OCRIT (HCT) HCT 35.6 % (based on docume nted legal sex) 34.0-4 5.0 Not Available [facility] (Lab) [address] [facility], [place], [address], 06/24/2025 11:45:32 06/23/20 25 06/23/2025 HEMOG LOBIN (HGB) HGB 11.1 g/dL (based on docume nted legal sex) 11.6-1 5.4 low Not Available [facility] (Lab) [address] [facility], [place], [address], 06/24/2025 11:45:32 06/23/20 25 06/23/2025 GTT - GESTA ROLAND L SCREE N, ACOG OB glucose, 1 hour screen 180 mg/dL 70-135 high Not Available [facility] (Lab) [address] [facility], [place], [address], 06/24/2025 11:45:33 06/23/20 25 06/23/2025 HIV 1/2 ANTIG EN/AN TIBOD Y, REFLE X CONFI RMATI ON HIV antigen/anti body Nonrea ctive nonrea ctive HIV-1 antig en and HIV-1 /HIV- 2 antib odies were not detec greg. No labor atory evide nce of HIV infec tion. Not Available [facility] (Lab) [address] [facility], [place], [address], 06/24/2025 11:45:33 06/23/20 25 06/23/2025 RPR SCREE N, REFLE X TITER /CONF IRMAT ION RPR qualitative Nonrea ctive nonrea ctive Not Available [facility] (Lab) [address] [facility], [place], [address], 06/24/2025 11:45:34 07/21/20 25 07/21/2025 CULTU RE: URINE result report SEE RESULT S BELOW Test: Cultu re: Urine Speci men Sourc e: Urine - Clean Catch Speci men Type: Urine Speci men Date: 2024 1024 Resul t Date: 2024 0252 Resul t Statu s: Final resul t Abnor mal: No Resul ting Lab: [facility] [address] [facility] [address] Tel: CULTU RE ----- ----- ----- --- No growt h in 1 day (dete ction level of 10,00 0 colon ies / ml.) Not Available [facility] (Lab) [address] [place], [address], 07/23/2025 03:57:01 07/21/2007/21/2025 urina lysis , dipst ick Leukocytes ++ Not Available [address], [place], [address], 07/21/2025 11:03:04 07/21/20 25 07/21/2025 urina lysis , dipst ick Nitrite neg Not Available [address], [place], [address], 07/21/2025 11:03:04 07/21/20 25 07/21/2025 urina lysis , dipst ick Urobilinogen neg Not Available [facility] [address], [place], [address], 07/21/2025 11:03:04 07/21/20 25 07/21/2025 urina lysis , dipst ick Protein + Not Available [facility] [address], [place], [address], 07/21/2025 11:03:04 07/21/20 25 07/21/2025 urina lysis , dipst ick pH 5 Not Available [facility] [address], [place], [address], 07/21/2025 11:03:04 07/21/20 25 07/21/2025 urina lysis , dipst ick Specific [place] 1.030 Not Available [facility] nita [address], [place], [address], 07/21/2025 11:03:04 07/21/20 25 07/21/2025 urina lysis , dipst ick Ketone +++ Not Available [facility] [address], [place], [address], 07/21/2025 11:03:04 07/21/20 25 07/21/2025 urina lysis , dipst ick Bilirubin neg Not Available [facility] [address], [place], [address], 07/21/2025 11:03:04 07/21/20 25 07/21/2025 urina lysis , dipst ick Glucose neg Not Available [facility] [address], [place], [address], 07/21/2025 11:03:04 07/21/20 25 07/21/2025 urina lysis , dipst ick Appearance cloudy Not Available [address], [place], [address], 07/21/2025 11:03:04 07/21/20 25 07/21/2025 urina lysis , dipst ick Color dark Not Available [facility], [place], [address], 07/21/2025 11:03:04 08/04/20 25 08/04/2025 CMP(C OMPRE HENSI VE METAB OLIC PANEL ) sodium 138 mmol/ L 133-14 6 Not Available [facility] (Lab) [address] [facility], [place], [address], 08/05/2025 13:39:18 08/04/20 25 08/04/2025 CMP(C OMPRE HENSI VE METAB OLIC PANEL ) potassium 4.0 mmol/ L 3.5-5. 1 Not Available [facility] (Lab) [address] [facility], [place], [address], 08/05/2025 13:39:18 08/04/20 25 08/04/2025 CMP(C OMPRE HENSI VE METAB OLIC PANEL ) chloride 105 mmol/ L 98-107 Not Available [facility] (Lab) [address] [facility], [place], [address], 08/05/2025 13:39:18 08/04/20 25 08/04/2025 CMP(C OMPRE HENSI VE METAB OLIC PANEL ) carbon dioxide 25 mmol/ L 21-31 Not Available [facility] (Lab) [address] [facility], [place], [address], 08/05/2025 13:39:18 08/04/20 25 08/04/2025 CMP(C OMPRE HENSI VE METAB OLIC PANEL ) anion gap 8 mmol/ L 4-13 Not Available [facility] (Lab) [address] [facility], [place], [address], 08/05/2025 13:39:18 08/04/20 25 08/04/2025 CMP(C OMPRE HENSI VE METAB OLIC PANEL ) blood urea nitrogen 10 mg/dL 7-25 Not Available [facility] (Lab) [address] [facility], [place], [address], 08/05/2025 13:39:18 08/04/20 25 08/04/2025 CMP(C OMPRE HENSI VE METAB OLIC PANEL ) creatinine 0.41 mg/dL 0.60-1 .30 low Not Available [facility] (Lab) [address] [facility], [place], [address], 08/05/2025 13:39:18 08/04/20 25 08/04/2025 CMP(C OMPRE HENSI VE METAB OLIC PANEL ) egfrcr (CKD-epi 2020) >90 mL/mi n/1.7 3_m2 >=60 Not Available [facility] (Lab) [address] [facility], [place], [address], 08/05/2025 13:39:18 08/04/20 25 08/04/2025 CMP(C OMPRE HENSI VE METAB OLIC PANEL ) calcium 8.9 mg/dL 8.3-10 .5 Not Available [facility] (Lab) [address] [facility], [place], [address], 08/05/2025 13:39:18 08/04/20 25 08/04/2025 CMP(C OMPRE HENSI VE METAB OLIC PANEL ) glucose 116 mg/dL 70-100 high Not Available [facility] (Lab) [address] [facility], [place], [address], 08/05/2025 13:39:18 08/04/20 25 08/04/2025 CMP(C OMPRE HENSI VE METAB OLIC PANEL ) protein, total 6.1 g/dL 6.4-8. 3 low Not Available [facility] (Lab) [address] [facility], [place], [address], 08/05/2025 13:39:18 08/04/20 25 08/04/2025 CMP(C OMPRE HENSI VE METAB OLIC PANEL ) albumin 3.5 g/dL 3.5-5. 0 Not Available [facility] (Lab) [address] [facility], [place], [address], 08/05/2025 13:39:18 08/04/20 25 08/04/2025 CMP(C OMPRE HENSI VE METAB OLIC PANEL ) ALT 11 units /L 9-43 Not Available [facility] (Lab) [address] [facility], [place], [address], 08/05/2025 13:39:18 08/04/20 25 08/04/2025 CMP(C OMPRE HENSI VE METAB OLIC PANEL ) alkaline phosphatase 98 units /L 34-104 Not Available [facility] (Lab) [address] [facility], [place], [address], 08/05/2025 13:39:18 08/04/20 25 08/04/2025 CMP(C OMPRE HENSI VE METAB OLIC PANEL ) AST 15 units /L 13-39 Not Available [facility] (Lab) [address] [facility], [place], [address], 08/05/2025 13:39:18 08/04/20 25 08/04/2025 CMP(C OMPRE HENSI VE METAB OLIC PANEL ) bilirubin, total 0.3 mg/dL 0.2-1. 2 Not Available [facility] (Lab) [address] [facility], [place], [address], 08/05/2025 13:39:18 08/04/20 25 08/04/2025 BILE ACIDS , TOTAL bile acids, total 4 umol/ L 0-10 Test Perfo rmed by: [facility] [address] Not Available [facility] (Lab) [address] [facility], [place], [address], 08/05/2025 13:39:19 03/02/20 25 03/02/2025 US, obste tric, nucha l trans lucen cy No observ ation record ed. [email or web address] [facility] [address], [place], [address], 03/02/2025 13:35:30 03/02/20 25 03/02/2025 US, obste tric, nucha l trans lucen cy No observ ation record ed. [email or web address] [address], [place], [address], 03/03/2025 14:08:39 03/08/20 25 03/08/2025 US, obste tric, 1st trime ster No observ ation record ed. [email or web address] [facility] [address], [place], [address], 03/08/2025 12:22:22 03/08/20 25 03/08/2025 US, obste tric, 1st trime ster No observ ation record ed. [email or web address] [address], [place], [address], 03/10/2025 15:03:13 04/01/20 25 03/24/2025 [email or web address] r monit or No observ ation record ed. [address] [facility], [place], [address], 04/08/2025 12:36:45 04/01/20 25 03/22/2025 qamar r monit or No observ ation record ed. [address] (Pulmonary) [address] [place] [address] [address] [facility], [place], [address], 04/06/2025 08:59:34 04/20/20 25 04/20/2025 US, obste tric, limit ed No observ ation record ed. [email or web address] [facility] [address], [place], [address], 04/20/2025 17:39:30 04/20/20 25 04/20/2025 US, obste tric, follo w-up No observ ation record ed. [email or web address] [address], [place], [address], 04/23/2025 08:32:54 04/28/20 25 04/28/2025 US, obste tric, 2nd or 3rd trime ster No observ ation record ed. [email or web address] [facility] [address], [place], [address], 04/28/2025 17:48:42 04/28/20 25 04/28/2025 US, obste tric, 2nd or 3rd trime ster No observ ation record ed. [email or web address] [address], [place], [address], 05/04/2025 22:16:11 05/07/20 25 05/07/2025 non-s tress test No observ ation record ed. [address], [place], [address], 05/28/2025 13:33:54 05/21/20 25 05/21/2025 CT, head + brain , w/o contr ast No observ ation record ed. [email or web address], [place], [address], 05/24/2025 13:48:57 05/28/20 25 05/28/2025 US, obste tric, follo w-up No observ ation record ed. [facility] [address], [place], [address], 05/28/2025 17:32:34 05/28/20 25 05/28/2025 US, obste tric, follo w-up No observ ation record ed. [email or web address] [address], [place], [address], 06/01/2025 15:13:13 08/10/16 2506/07/2025 US, obste tric, follo w-up No observ ation record ed. [email or web address] [facility] [address] [facility], [place], [address], 06/15/2025 10:53:46 07/07/20 25 07/07/2025 US, obste tric, follo w-up No observ ation record ed. [email or web address] [facility] [address], [place], [address], 07/07/2025 13:18:01 07/07/2007/07/2025 US, obste tric, follo w-up No observ ation record ed. [email or web address] [address], [place], [address], 07/07/2025 11:29:37 08/04/20 25 08/04/2025 US, obste tric, follo w-up No observ ation record ed. [email or web address] [facility] [address], [place], [address], 08/04/2025 15:08:50 08/04/2008/04/2025 US, obste tric, follo w-up No observ ation record ed. [address], [place], [address], 08/06/2025 10:41:50 08/11/2008/11/2025 non-s tress test No observ ation record ed. [email or web address] [facility] [address], [place], [address], 08/11/2025 17:37:52 08/11/20 non-s tress test No observ ation record ed. [email or web address] [facility] [address], [place], [address], 08/11/2025 17:38:11 08/15/2008/15/2025 non-s tress test No observ ation record ed. [place] [id number] [facility] [address], [place], [address], 08/21/2025 10:18:57 08/15/2008/15/2025 US, obste tric, bioph ysica l profi le No observ ation record ed. [place] [id number] [facility] [address], [place], [address], 08/17/2025 10:50:53 08/18/2008/18/2025 US, obste tric, bioph ysica l profi le + non-s tress test No observ ation record ed. [email or web address] [facility] [address], [place], [address], 08/18/2025 10:21:39 08/18/2008/18/2025 US, obste tric, bioph ysica l profi le + non-s tress test No observ ation record ed. [email or web address] [address], [place], [address], 08/18/2025 10:35:44 08/18/2008/18/2025 non-s tress test No observ ation record ed. [email or web address] [facility] [address], [place], [address], 08/18/2025 17:34:03 08/18/20 non-s tress test No observ ation record ed. [email or web address] [facility] [address], [place], [address], 08/18/2025 16:06:09 08/25/2008/25/2025 US, obste tric, bioph ysica l profi le + non-s tress test No observ ation record ed. [email or web address] [facility] [address], [place], [address], 08/25/2025 18:52:06 08/25/2008/25/2025 US, obste tric, follo w-up No observ ation record ed. [email or web address] [address], [place], [address], 08/25/2025 15:47:28 08/25/2008/25/2025 non-s tress test No observ ation record ed. [email or web address] [place] [address], [place], [address], 08/25/2025 18:12:15 08/25/20 non-s tress test No observ ation record ed. [email or web address] [place] [address], [place], [address], 08/25/2025 17:21:19 08/30/20 25 08/30/2025 non-s tress test No observ ation record ed. [email or web address] [address] [place] [address], [address], 09/15/2025 15:26:49 09/01/20 25 09/01/2025 non-s tress test No observ ation record ed. [place] [id number] [facility] [address], [place], [address], 09/13/2025 11:32:22 09/01/20 25 09/01/2025 US, obste tric No observ ation record ed. [place] [id number] [facility] [address], [place], [address], 09/02/2025 15:56:01 09/01/20 25 09/01/2025 non-s tress test No observ ation record ed. [email or web address] [id number] [facility] [address], [place], [address], 09/02/2025 14:32:38 09/16/20 25 09/16/2025 CT, angio gram, head + neck, w/ contr ast No observ ation record ed. [email or web address] [facility] [address], [place], [address], 09/16/2025 20:01:05 09/28/20 25 09/28/2025 non-s tress test No observ ation record ed. [email or web address] [facility] [address], [place], [address], 10/04/2025 16:42:40 Result Notes None recorded. Problems Name Problem SNOMED Code Status Onset Date Resolution Date Notes Provider Name and Address Organization Details Recorded Time Hypereme sis [id number] Completed phenerga n now prn [place] [facility] [facility] 2 16:43:51 Anxiety in pregnanc y [id number] 9109 Completed will continue to monitor Asia ramos [facility] 2 16:43:51 Past pregnanc y history of gestatio nal diabetes mellitus 797329408 Completed Early 1 hr GTT @ 20wks 11/[address] [facility] 2 16:43:51 Spinal muscular atrophy 1252640 Completed Carrier - Not in contact with FOB. Asia ramos [facility] 2 16:43:51 Anxiety 56211925 Completed prozac Karina ramos [facility] 4 11:00:46 Nausea 702030080 Completed d/c zofran pump 11/08 per pt request Karina ramos [facility] 4 11:00:46 Postpart um hemorrha ge [id number] Completed 2017 with d&c Karina ramos [facility] 4 11:00:46 Normal pregnanc y in multigra jessy 8095898084 59644 Completed 201907/05/2021 Encounte r for supervis ion of other normal pregnanc y, 3rd trimeste r;Record ed Elsewher e: No Locat ion: [facility] S ource: EHR Concept Artist yvrose: N Natalyati ce ID: 0001 Gigi lable Time: 10:45:00 AM Karina ramos, [facility] 1 10:15:27 Gestatio n period, 37 weeks 02147419 Completed 201907/05/2021 37 weeks gestatio n of pregnanc y;Record ed Elsewher e: No Locat ion: [facility] S ource: EHR Concept Artist yvrose: N Natalyati ce ID: 0001 Gigi lable Time: 09:00:[address] [facility] 10:15:[address] Concept Completed 201907/05/2021 Matern care for abnlt fetl hrt rate or rhym, 3rd tri, unsp;Rec orded Elsewher e: No Locat ion: [facility] S ource: EHR Concept Artist yvrose: N Natalyati ce ID: 0001 Gigi lable Time: 08:45:[address] [facility] 1 10:15:29 Gestatio nal diabetes mellitus 58391092 Completed 201907/05/2021 Gestatio nal diabetes mellitus in pregnanc y, diet controll ed;Recor ded Elsewher e: No Locat ion: [facility] S ource: EHR Concept Artist yvrose: N Practi ce ID: 0001 Gigi lable Time: 11:45:[address] [facility] 1 10:15:25 Gestatio n period, 38 weeks 05992758 Completed 201907/05/2021 38 weeks gestatio n of pregnanc y;Record ed Elsewher e: No Locat ion: [facility] S ource: EHR Concept Artist yvrose: N Natalyati ce ID: 0001 Gigi lable Time: 11:30:00 AM Karina ramos, [facility] 10:15:13 Amenorrh ea 49148138 Completed 202007/10/2021 Tammi Jones null, [facility] 13:08:35 Pregnanc y 80562306 Completed 202003/29/2022 Emma Dykes [facility], [facility] 12:28:48 Pregnanc y 09072073 Completed 202304/22/2024 Emma Dykes [facility], [facility] 12:28:48 Headache 31709301 Active 2023 Karina Burroughs null, [facility] 16:19:28 Pregnanc y 22747394 Completed 202309/14/2025 Emma Dykes [facility], [facility] 12:28:48 Uncompli cated moderate persiste nt asthma 955906328 Completed 2024 albutero l prn Shawn Bradley MD [address], [place], [address], [facility] 13:08:36 Anxiety 07648810 Completed 2024 sertrali ne started 03/02/25 changed to prozac 10 on Shawn Bradley MD [address], [place], [address], [facility] 17:05:48 Nausea and vomiting 71491121 Completed 2024 Shawn Bradley MD [address], [place], [address], [place] [facility] 5 13:20:27 Placenta circumva llata 8193622 Completed 2024 32wk [facility] 09:44:35 Frequent headache 185946640 Completed 2024 transpor t to [facility] 05/21, discharg e 05/23 MFM referral faxed 05/24 [facility] per KAJAL Pittman [facility]- Neuro [facility] unable to see [...] more than 2-3 times a week. [facility] 5 10:55:26 Abnormal placenta affectin g manageme nt of mother 77957438 Completed 2024 MCI serial growth [facility] 5 10:46:25 Iron deficien cy anemia 09104684 Completed 2024 SS MFM tx venofer 200mg x1 HGB 10.6 [facility] 5 15:21:25 Gestatio nal diabetes mellitus 23171773 Completed 2024 checking bs QID - ruled in GDM [facility]erral fax[facility] to [facility] 07[facility]07 [facility] 5 14:36:52 Notes:Order faxed to [facility] access 08/10 for PICC line, and home health already caring for pt. Vladimir RDZ at [phone] Problem Notes None recorded. Procedures Surgical History Date Name Laterality Status Provider Name and Address Organization Details Recorded Time 025 SALPINGECTOMY, LAPAROSCOPIC (SURG) completed Not Available [facility] 09/06/2025 11:19:17 025 Date of Last Pap Smear completed Karina Burroughs [facility] 01/28/2025 11:19:42 024 Nexplanon Removal completed Shawn Bradley MD [address], [place], [address], [facility] 08/05/2024 15:09:58 024 Control Implant Insertion completed Anju Mcnamara CNM [address], [place], [address], [facility] 05/08/2024 17:59:34 024 cholecystectomy completed Karina Burroughs [facility] 03/31/2025 09:18:57 018 Dilation and Curettage completed Karina Burroughs [facility] 07/05/2021 10:17:50 Imaging Results None recorded. Procedure Notes None recorded. Medical Equipment None Reported. Allergies Allergen ID Allergen Name Allergen Category Reaction Reaction Severity Criticality Documentation Date Start Date Code Code System Note Provider Name and Address Organization Details Recorded Time 79241 terbutali ne medicatio n anaphylax is Not available Not available 01/27/20252021 [address] [facility] 16:19:27 94570 amoxicill in medicatio n Not available Not available Not available 09/10/2025 723 RxNorm Not Available [employer] External Data Service - prod 16:39:37 28985 terbinafi ne medicatio n anaphylax is Not available [facility] 09/10/20252024 71086 RxNorm Not Available [employer] - prod 16:40:54 Medications Name [...] [facility] By: prabhjot Lee r DateTime : [...] n (supplie d by office) insert lot [id number] Exp 01/2026 Not Available Not Available Not Available 28 mg iron-800 mcg tablet 07/05 completed Prescrib ed Elsewher e: Yes Loca tion[facility] odify By: prabhjot Lee r DateTime : 01/14/20 10:45:00 AM Not Available Not Available Not Available lidocaine 5 % topical ointment APPLY OINTMENT EXTERNAL LY TO RIBS THREE TIMES DAILY NEEDED 01/14 completed Not Available Not Available Not Available RECREATION AIDE-PNV-DH A 28 mg iron-1 mg-200 mg capsule [...] Address Organization Details Last Updated DateTime 08/25/2025 43611.78222 g 108/72 mm[Hg] Melyssa Santo [facility] 08/25/2025 15:41:08 Date Recorded Body height Body mass index (BMI) Body weight Systolic And Diastolic Provider Name and Address Organization Details Last Updated DateTime 08/25/2025 162.56 cm 31.6 kg/m2 09145 g 108/72 mm[Hg] Emma Dykes [facility] 08/25/2025 17:18:37 Social History Question Answer Notes LastModified by Organizat ion Details LastModified Time Tobacco Smoking Status Former Smoker Karina ramos, [facility] 07/05/2021 09:06:21 If You Are , What Was Your Level Of Alcohol Consumption Prior To ? Occasional [email or web address] Information not available 03/31/2025 Are You Blind Or Do You Have Difficulty Seeing? No [email or web address] Information not available 07/05/2021 What Is Your Level Of Caffeine Consumption? Heavy [email or web address] Information not available 07/05/2021 In The 14 Days Before Symptom Onset, Have You Had Close Contact With A Laboratory-confir med COVID-19 While That Case Was Ill? No [email or web address] Information not available 07/05/2021 In The 14 Days Before Symptom Onset, Have You Had Close Contact With A Person Who Is Under Investigation For COVID-19 While That Person Was Ill? No [email or web address] Information not available 07/05/2021 Have You Been To An Area Known To Be High Risk For COVID-19? No [email or web address] Information not available 07/05/2021 Are You Deaf Or Do You Have Serious Difficulty Hearing? No Information not available 07/05/2021 What Type Of Diet Are You Following? REGULAR [email or web address] Information not available 07/05/2021 Which Illicit Or Recreational Drugs Have You Used? Marijuana [email or web address] Information not available 07/05/2021 Have You Ever Been Counseled For Unhealthy Alcohol Use? No [email or web address] Information not available 07/05/2021 Do You Use Your Seat Belt Or Car Seat Routinely? Yes [email or web address] Information not available 07/05/2021 Do You Have Smoke And Carbon Monoxide Detectors In Your Home? Yes Information not available 07/05/2021 Do You Use Sunscreen Routinely? Yes [email or web address] Information not available 07/05/2021 Has Tobacco Cessation Counseling Been Provided? No [email or web address] Information not available 07/05/2021 Have You Used IV Drugs? No [email or web address] Information not available 07/05/2021 Do You Have Difficulty Walking Or Climbing Stairs? No [email or web address] Information not available 12/06/2021 Sex: Unknown Functional Status Question Answer Note LastModified by Organizat ion Details LastModified Time Do you use any illicit or recreational drugs? Yes [email or web address] Information not available 07/05/2021 Do you or have you ever used any other forms of tobacco or nicotine? Yes [email or web address] Information not available 07/05/2021 What is your level of alcohol consumption? None [email or web address] Information not available 03/31/2025 Do you or have you ever used smokeless tobacco? Never used smokeless tobacco [email or web address] Information not available 07/05/2021 Are you able to walk independently without assistance or assistive devices? YESWOREST Information not available 07/05/2021 Are you able to care for yourself independently? Yes [email or web address] Information not available 12/06/2021 Do you have difficulty dressing, bathing, grooming, or toileting? No [email or web address] Information not available 12/06/2021 Do you or have you ever used e-cigarettes or vape? Current user of electronic cigarettes [email or web address] Information not available 07/05/2021 What is your exercise level? Occasional [email or web address] Information not available 07/05/2021 Mental Status Question Answer Note LastModified by Organization D etails LastModified Time Do you feel stressed (tense, restless, nervous, or anxious, or unable to sleep at night)? [id number] [email or web address] Information not available 07/05/2021 Family History Relationship Description Onset Age of this Age Resolved Age Notes LastModified by Organization Details LastModified Time Father No current problems or disability [email or web address] Not available 05/2021 09:06:31 Mother No current problems or disability [email or web address] Not available 05/2021 09:06:31 Medical History Condition [...] ICD10 Code Diagnosis IMO Codes Diagnosis Note [id number] Shawn Bradley MD [facility] [address] [address] 08/04/2025 14:02:59 08/04/2025 15:06:33 Gestational diabetes mellitus 70049009 O24.410 O43.103 O43.113 Z3A.34 75848448 [id number] Anju Mcnamara [facility] [address] [place] [address] 08/04/2025 14:21:57 08/04/2025 15:26:03 Gestation period, 34 weeks 89273428 Z3A.34 7856252 Pruritic d isorder of skin 8087566019 L29.9 82994 plan labs today, ursadiol BID [id number] Anju Mcnamara [facility] [address] [place] [address] 08/11/2025 14:51:38 08/11/2025 17:16:44 Gestational diabetes mellitus 75131598 O24.414 89408051 [id number] [facility] [address] [place] [address] 08/11/2025 16:25:59 08/11/2025 17:46:32 Gestational diabetes mellitus 07178923 O24.414 46799040 [id number] Shawn Bradley MD [facility] [address],[place] [address] 08/18/2025 09:40:51 08/18/2025 10:15:47 Gestational diabetes mellitus 32596506 O24.414 Z3A.36 80408392 [id number] Anju Mcnamara [facility] [address],[place] [address] 08/18/2025 09:41:06 08/18/2025 11:24:04 Gestation period, 36 weeks 42383018 Z3A.36 7681030 cont pnv [id number] [facility] [address] [address] 08/18/2025 09:41:16 08/18/2025 16:17:31 Gestational diabetes mellitus class A2 22089633 O24.414 21652689 [id number] Shawn Bradley MD [facility] [address] [address] 08/25/2025 14:26:29 08/25/2025 15:14:02 Gestational diabetes mellitus 25155737 O24.414 92811164 [id number] [facility] [address] [address] 08/25/2025 14:26:57 08/25/2025 15:53:52 Gestation period, 37 weeks 60496815 Z3A.37 4945521 continue vitamin [id number] [facility] [address] [place] [address] 08/25/2025 16:48:00 08/25/2025 17:20:42 Gestational diabetes mellitus 75649067 O24.419 [id number] Health Concerns Section Related Observation LastModified by Organization Detai ls LastModified Time None Recorded Concern Status LastModified by Organization Details LastModified Time None Recorded Payers Encounter Date Sequence Insurance Name Policy Number Policy Roberts Covered Member ID Roberts Member ID Guarantor Name 08/25/2025 1 [facility] (MEDICAID HMO) [id number] Yuni Roberto [id number] Yuni Mejia Notes Date Note Type Note Provider Name and Address Organization Details Recorded Time 08/25/2025 text/html Generic HPI TemplateReported by Patient Anju EHilda Mcnamara CNM [address], [place], [address], [facility] 08/25/2025 15:51:24 OBGyn Episode Ob Episode Information Episode Created Date Number of Fetuses Patient Bloodtype Patient rh Status Prepregnancy Weight lbs Domestic Partner Domestic Partner Phone Father Name Direct Chill Caster Status 03/02/20 25 1 B Positive 164 CLOSED Fetus Data First Name Last Name Admitted to NICU Weight (g) Sex Living Outcome Pediatric Complications Fetus ID Race Codes Race Delivery Type Ziah false 4025.62 9 F true Full Term 60422 Vaginal Delivery Problems Problem Notes SDH form completed 5GI consult Tachycardia Holter monitor 72 order- pt sent back on 03-27-25 Cardiology referral faxed per Dr Martínez office calling pt 04/21 to schedule consult scheduled 05/11 11:15AM Problem Name Start Date End Date Resolution Snomed Code Not e Uncomplicated moderate persistent asthma 03/02/2025 779971565 albuterol prn Abnormal placenta affecting management of mother 05/04/2025 42015609 MCI serial grow th us Iron deficiency anemia 05/25/2025 82090493 [facility] tx [place] 200mg x1 HGB 10.6 Nausea and vomiting 03/02/2025 91754476 Anxiety 03/02/2025 85906052 sertralin e started 03/02/25 changed to prozac 10 on Gestational diabetes mellitus 07/08/2025 66014039 checking bs QID - ruled in GDM Referral faxed to [facility] 07/07 Frequent headache 05/03/2025 246715365 [place] to [facility] 05/21, discharge 05/23 MFM referral faxed 05/24 [facility] Neurology consult pending per KAJAL Pittman [facility] unable to see pt due to insurance [facility] 07/05/25 Level US & Consult (see MFM consult zayas recommendations ) regimen prn Imitrex 50mg for acute migraine, vitamin B2 (Riboflavin) 400mg, Coenzyme q10 300mg and magnesium oxide 200 to 600mg daily. minimize use of Excedrin or Tylenol to no more than 2-3 times a week. 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/2025 1490052 32wk growth us Jun Calculation Initial Jun [...] Weight in lbs Pre/Post Dialysis Refused Weight 158.096961383813 BP Diastolic BP Location Tested BP Systolic [...] Weight in lbs Pre/Post Dialysis Refused Weight 158.652453394483 BP Diastolic BP Location Tested BP Systolic [...] Weight in lbs Pre/Post Dialysis Refused Weight 162.895765881377 BP Diastolic BP Location Tested BP Systolic BP Type 78 123 Fetus Heart Rate Present A 148 Fetus Movement A Yes Comments Patient is having having ronny n, cramping and vaginal discharge. went to ed exam done cultures and rx sent, ?FM, await cardiac cath lab technologist results rfilled zofran, precautions and education f/u [...] Type Weight in lbs Pre/Post Dialysis Refused 168.613466703780 BP Diastolic BP Location Tested BP Systolic [...] Type Weight in lbs Pre/Post Dialysis Refused 169.284941021070 BP Diastolic BP Location Tested BP Systolic [...] Weight in lbs Pre/Post Dialysis Refused Weight 175.076110919790 BP Diastolic BP Location Tested BP Systolic [...] Weight in lbs Pre/Post Dialysis Refused Weight 182.575604351437 BP Diastolic BP Location Tested BP Systolic [...] Weight in lbs Pre/Post Dialysis Refused Weight 181.426145788279 BP Diastolic BP Location Tested BP Systolic BP Type 73 L arm 131 sitting Fetus Heart Rate Present Fetus Movement A Yes Comments viral URI testied neg at urg ent care, nausea resolved, efw 68%, +FM plan education and precautions f/u 2 weeks diagnosed GDM, plan farm service adviser, gave list reviewed protein vs carb Flowsheet Date 07/21/2025 Gibson Score Blood Edema Fundus Height Fundus Units Glucose Ketones Leukocytes Nitrite Labor Signs Protein Cervic Dilation Cervic Effacement Cervic Station Type Weight in lbs Pre/Post Dialysis Refused Weight 181.057790262489 BP Diastolic BP Location Tested BP Systolic BP Type 78 L arm 127 sitting Fetus Heart Rate Present A 150 Fetus Movement A Yes Comments rpt urine culture +FM review ed blood sugars, meets with farm service adviser today, precautions and education f/u 2 weeks [...] Weight in lbs Pre/Post Dialysis Refused Weight 181.738451920864 BP Diastolic BP Location Tested BP Systolic [...] Weight in lbs Pre/Post Dialysis Refused Weight 183.134144521950 BP Diastolic BP Location Tested BP Systolic [...] Type Weight in lbs Pre/Post Dialysis Refused 184.667390771915 BP Diastolic BP Location Tested BP Systolic [...] Type Weight in lbs Pre/Post Dialysis Refused 184.736362657521 BP Diastolic BP Location Tested BP Systolic [...] Type Weight in lbs Pre/Post Dialysis Refused 184.001460596459 BP Diastolic BP Location Tested BP Systolic [...] Weight in lbs Pre/Post Dialysis Refused Weight 184.263159934032 BP Diastolic BP Location Tested BP Systolic [...] Weight in lbs Pre/Post Dialysis Refused Weight 164.827947769930 BP Diastolic BP Location Tested BP Systolic [...]
--- OUTSIDE RECORDS SUMMARY | 2025-10-27 12:15 | XMS_ITS ---
Author Organization Unknown Address [address] [place] [phone] Phone Care Team Providers Care Electric Bath Attendant Name Role Phone LINDA WRIGHT Attending Unavailable [...] DIFF - Collect Date/T randall: 09/12/2024 09:27 [facility] ID: [id number] [address] [place], [place], [id number] LOINC: 05395-8 Test Value Unit Reference Range Code Code System Flag WBC 7.6 10^3uL L=4.8 H=10.8 RBC 4.83 10^6uL L=4.20 H=5.40 HEMOGLOBIN 13.1 g/dL L=12.0 H=16.0 718-7 LOINC HEMATOCRIT 40.9 VOL% L=37.0 H=47.0 4544-3 LOINC MCV 84.7 fL L=81.0 H=99.0 MCH 27.1 pg L=27.0 H=32.0 MCHC 32.0 g/dL L=32.0 H=36.0 PLATELETS 305 10^3uL L=100 H=400 91363-9 LOINC RDW 12.1 % L=11.7 H=15.5 %GRAN 53.6 % L=40.0 H=70.0 74493-5 LOINC %LYMPH 34.1 % L=20.0 H=45.0 736-9 LOINC %MONO 8.1 % L=2.0 H=10.0 83229-0 LOINC %EOS 3.5 % L=0.0 H=6.0 713-8 LOINC %BASO 0.4 % L=0.0 H=3.0 706-2 LOINC #NEUT 4.1 10^3uL L=1.9 H=7.6 85857-3 LOINC #LYMPH 2.6 10^3uL L=0.9 H=4.9 39855-5 LOINC #MONO 0.6 10^3uL L=0.1 H=0.9 13708-4 LOINC #EOS 0.3 10^3uL L=0.0 H=0.6 712-0 LOINC #BASO 0.03 10^3uL L=0.00 H=0.10 90642-1 LOINC #IM GRANS 0.0 10^3uL L=0.0 H=7.0 02580-0 LOINC %IM GRANS 0.3 % L=0.0 H=5.0 87818-3 LOINC %NRB 0.0 L=0.0 H=0.2 53822-2 LOINC #NRB 0.000 L=0.000 H=0.012 98024-2 LOINC MANUAL DIFF NOT INDICATED RBC MORPH NOT INDICATED COMPREHENSIVE METABOLIC PANE L - Collect Date/Time: 09/12/2024 09:27 [facility] ID: [id number] [address] [place], [place], [id number] LOINC: 36335-0 Test Value Unit Reference Range Code Code [...] 2028-9 LOINC ANION GAP 14 L=10 H=20 16426-6 LOINC OSMOLALITY 291 mOs/kG L=280 H=296 07073-1 LOINC BUN/CREAT 24.3 3097-3 LOINC CALCIUM 9.6 mg/dL L=8.3 H=10.5 33612-9 LOINC AST 45 U/L L=15 H=46 1920-8 LOINC ALT 45 U/L L=9 H=72 1742-6 LOINC ALKALINE PHOS 78 U/L L=38 H=126 6768-6 LOINC TOTAL BILI 0.5 mg/dL L=0.2 H=1.3 1975-2 LOINC ALBUMIN 4.7 G/dL L=3.5 H=5.0 1751-7 LOINC TOTAL PROTEIN 8.1 g/L L=6.3 H=8.2 2885-2 LOINC A/G RATIO 1.4 42202-0 LOINC AGE 24 15795-0 LOINC eGFR NON-AFR 108 ml/min eGFR AFR AMER 131 ml/min TSH / REFLEX FT4 - Collect D ate/Time: 09/12/2024 09:27 [facility] ID: [id number] [address] [place] [address], [id number] LOINC: Test Value Unit Reference Range Code Code System Flag TSH 0.947 uIU/L L=0.470 H=4.680 52145-8 LOINC Social History Type Status Start Date End Date Code Code Syst em Smoking History Never smoker (Never Smoked) 124431112 SNOMED CT Sex Female Assessment You had [...] 6002 SNOMED-CT UNSPECIFIED ABDOMINAL PAIN active 215 96526 SNOMED-CT Allergies and Adverse Reactions Allergy Substance Reaction Severity Start Date Concern Status Co de Code System AMOXICILLIN Active 723 RxNorm TERBUTALINE Active 04187 RxNorm Plan of Treatment Stress Test Treadmill 01/21/2025 Gasket Winder Consult 04/27/2025 Encounters Encounter Diagnosis Start Date [...]
--- OUTSIDE RECORDS SUMMARY | 2025-10-27 12:16 | XMS_ITS | Continuity of Care Document ---
Author Organization S [facility], [facility] Address [address] [place] [address] [place] [address] Care Team Providers Care Financial Institution Manager Name Role Phone CARLOS ESTRADA Primary Care Provider [phone] Assessment No assessment recorded. Plan of Treatment Reminders Order Date Submit Date Provider Last Modified By Organization Details Last Modified Time Details Appointments None record ed. Lab None record ed. Referral None record ed. Procedures None record ed. Surgeries None record ed. Imaging non-st ress test 025 08/18/20 25 [email or web address] [address], [address], [place], [address], 16:17:31 Medication Orders None record ed. Patient TargetsNo targets recorded. Patient InstructionsNo instructions recorded. Reason for Referral None Reported. Results Created Date Observation Date Name Description Value Unit Range Abnormal Flag Note LastModifiedBy Organization Detail LastModifiedTime 03/06/20 25 03/06/2025 [UNIT Y] ANEUP LOIDY NIPT fraction 5.7% normal Not Available [facility] [address], [place], [address], 03/06/2025 03:58:26 03/06/20 25 03/06/2025 [UNIT Y] ANEUP LOIDY NIPT sex chromosome aneuploidy NOT DETECT ED normal Not Available [facility] [address], [place], [address], 03/06/2025 03:58:26 03/06/20 25 03/06/2025 [UNIT Y] ANEUP LOIDY NIPT monosomy X LOW RISK <1 in 10,000 normal Not Available [facility] [address], [place], [address], 03/06/2025 03:58:26 03/06/20 25 03/06/2025 [UNIT Y] ANEUP LOIDY NIPT trisomy 13 LOW RISK <1 in 10,000 normal Not Available [facility] [address], [place], [address], 03/06/2025 03:58:26 03/06/20 25 03/06/2025 [UNIT Y] ANEUP LOIDY NIPT trisomy 18 LOW RISK <1 in 10,000 normal Not Available [facility] [address], [place], [address], 03/06/2025 03:58:26 03/06/20 25 03/06/2025 [UNIT Y] ANEUP LOIDY NIPT trisomy 21 LOW RISK <1 in 10,000 normal Not Available [facility] [address], [place], [address], 03/06/2025 03:58:26 03/06/20 25 03/06/2025 [UNIT Y] ANEUP LOIDY NIPT sex FEMALE normal Not Available [facility] [address], [place], [address], 03/06/2025 03:58:26 03/06/20 25 03/06/2025 [UNIT Y] ANEUP LOIDY NIPT gestation SINGLE TON normal Not Available [facility] [address], [place], [address], 03/06/2025 03:58:26 03/06/20 25 03/06/2025 [UNIT Y] ANEUP LOIDY NIPT for detailed report, see pdf See PDF normal Not Available [facility] [address], [place], [address], 03/06/2025 03:58:26 03/02/20 25 03/02/2025 CULTU RE: URINE result report SEE RESULT S BELOW Test: Cultu re: Urine Speci men Sourc e: Urine - Clean Catch Speci men Type: Urine Speci men Date: 025 1455 Resul t Date: 025 2138 Resul t Statu s: Final resul t Abnor mal: No Resul ting Lab: [facility] [address] [facility] [address] Tel: CULTU RE ----- ----- ----- --- No growt h in 1 day (dete ction level of 10,00 0 colon ies / ml.) Not Available [facility] (Lab) [address] [facility], [place], [address], 03/03/2025 22:42:27 03/12/2003/12/2025 CULTU RE: URINE result report SEE RESULT S BELOW Test: Cultu re: Urine Speci men Sourc e: Urine - Clean Catch Speci men Type: Urine Speci men Date: 2024 1600 Resul t Date: 2024 0610 Resul t Statu s: Final resul t Abnor mal: No Resul ting Lab: [facility] [address] [facility] [address] Tel: CULTU RE ----- ----- ----- --- No growt h in 1 day (dete ction level of 10,00 0 colon ies / ml.) Not Available [facility] (Lab) [address] [facility], [place], [address], 03/14/2025 07:15:03 03/12/2003/12/2025 urina lysis , dipst ick Leukocytes ++ Not Available [facility] [address], [place], [address], 03/12/2025 16:45:06 03/12/2003/12/2025 urina lysis , dipst ick Protein + Not Available [place] [address], [place], [address], 03/12/2025 16:45:06 03/12/20 25 03/12/2025 urina lysis , dipst ick pH 5 Not Available [place] [address], [place], [address], 03/12/2025 16:45:06 03/12/20 25 03/12/2025 urina lysis , dipst ick Blood trace Not Available [place] [address], [place], [address], 03/12/2025 16:45:06 03/12/20 25 03/12/2025 urina lysis , dipst ick Specific [place] [address] [facility] [address], [place], [address], 03/12/2025 16:45:06 03/12/20 25 03/12/2025 urina lysis , dipst ick Ketone +++ Not Available [place] [address], [place], [address], 03/12/2025 16:45:06 03/31/20 25 03/31/2025 TSH, REFLE X FREE T4 TSH 0.42 uIU/m L 0.30-5 .33 Not Available [facility] (Lab) [address], [place], [address], 04/01/2025 03:05:12 03/31/20 25 03/31/2025 CULTU RE: URINE result report SEE RESULT S BELOW Test: Cultu re: Urine Speci men Sourc e: Urine Voide d Speci men Type: Urine Speci men Date: 1710 Resul t Date: 6 Resul t Statu s: Final resul t Abnor mal: No Resul ting Lab: [facility] [address] [facility] [address] Tel: CULTU RE ----- ----- ----- --- Cultu re resul t (>=3 organ isms prese nt) indic ates possi ble conta minat ion. Repea t cultu re if sympt oms indic ate. Not Available [facility] (Lab) [address] [facility], [place], [address], 04/01/2025 23:59:19 03/31/20 25 03/31/2025 urina lysis , dipst ick Leukocytes +1 Not Available [address], [place], [address], 03/31/2025 09:23:13 03/31/20 25 03/31/2025 urina lysis , dipst ick Nitrite normal Not Available [place] [address], [place], [address], 03/31/2025 09:23:13 03/31/20 25 03/31/2025 urina lysis , dipst ick Urobilinogen normal Not Available [facility] [address], [place], [address], 03/31/2025 09:23:13 03/31/20 25 03/31/2025 urina lysis , dipst ick Protein trace Not Available [place] [address], [place], [address], 03/31/2025 09:23:13 03/31/20 25 03/31/2025 urina lysis , dipst ick pH 5 Not Available [place] [address], [place], [address], 03/31/2025 09:23:13 03/31/20 25 03/31/2025 urina lysis , dipst ick Specific [place] 1.020 Not Available [facility] [address], [place], [address], 03/31/2025 09:23:13 03/31/20 25 03/31/2025 urina lysis , dipst ick Ketone normal Not Available [place] [address], [place], [address], 03/31/2025 09:23:13 03/31/20 25 03/31/2025 urina lysis , dipst ick Bilirubin normal Not Available [facility] [address], [place], [address], 03/31/2025 09:23:13 03/31/20 25 03/31/2025 urina lysis , dipst ick Glucose normal Not Available [place] [address], [place], [address], 03/31/2025 09:23:13 03/31/20 25 03/31/2025 urina lysis , dipst ick Appearance normal Not Available [facility] [address], [place], [address], 03/31/2025 09:23:13 03/31/20 25 03/31/2025 urina lysis , dipst ick Color normal Not Available [place] [address], [place], [address], 03/31/2025 09:23:13 04/01/20 25 04/01/2025 WOMEN 'S HEALT H SWAB PLUS, DENIS bacterial vaginosis (bv), tma Negati ve negati ve Not Available [facility] (Lab) [address] [place], [address], 04/02/2025 14:08:45 04/01/20 25 04/01/2025 [facility], DENIS mekhi species, tma Negati ve negati ve Not Available [facility] (Lab) [address] [place], [address], 04/02/2025 14:08:45 04/01/20 25 04/01/2025 WOMEN 'S HEALT H SWAB PLUS, DENIS mekhi glabrata, tma Negati ve negati ve Not Available [facility] (Lab) [address] [place], [address], 04/02/2025 14:08:45 04/01/20 25 04/01/2025 [facility] DENIS trichomonas vaginalis, tma Negati ve negati ve Not Available [facility] (Lab) [address] [facility], [place], [address], 04/02/2025 14:08:45 04/01/20 25 04/01/2025 [facility], DENIS chlamydia trachomatis, PCR Negati ve negati ve Not Available [facility] (Lab) [address] [place], [address], 04/02/2025 14:08:45 04/01/20 25 04/01/2025 [facility], DENIS neisseria gonorrhoeae, [...] ded in this panel . Not Available [facility] (Lab) [address] [place], [address], 04/02/2025 14:08:45 04/22/2004/22/2025 CULTU RE: URINE result report SEE RESULT S BELOW Test: Cultu re: Urine Speci men Sourc e: Urine Voide d Speci men Type: Urine Speci men Date: 2024 1314 Resul t Date: 2024 0322 Resul t Statu s: Final resul t Abnor mal: No Resul ting Lab: [facility] [address] [facility] [address] Tel: CULTU RE ----- ----- ----- --- No growt h in 1 day (dete ction level of 10,00 0 colon ies / ml.) Not Available [facility] (Lab) [address], [place], [address], 04/24/2025 04:28:01 04/22/20 25 04/22/2025 urina lysis , dipst ick Leukocytes + Not Available [address], [place], [address], 04/22/2025 10:01:51 04/22/20 25 04/22/2025 urina lysis , dipst ick Protein + Not Available [place] [address], [place], [address], 04/22/2025 10:01:51 04/22/20 25 04/22/2025 urina lysis , dipst ick pH 8 Not Available [place] [address], [place], [address], 04/22/2025 10:01:51 04/22/20 25 04/22/2025 urina lysis , dipst ick Blood + Not Available [place] [address], [place], [address], 04/22/2025 10:01:51 04/22/2004/22/2025 urina lysis , dipst ick Specific [place] [address] [facility] [address], [place], [address], 04/22/2025 10:01:51 04/22/2004/22/2025 urina lysis , dipst ick Ketone + Not Available [place] [address], [place], [address], 04/22/2025 10:01:51 06/23/2006/23/2025 HEMAT OCRIT (HCT) HCT 35.6 % (based on docume nted legal sex) 34.0-4 5.0 Not Available [facility] (Lab) [address] [facility], [place], [address], 06/24/2025 11:45:32 06/23/20 25 06/23/2025 HEMOG LOBIN (HGB) HGB 11.1 g/dL (based on docume nted legal sex) 11.6-1 5.4 low Not Available [facility] (Lab) [address] [facility], [place], [address], 06/24/2025 11:45:32 06/23/20 25 06/23/2025 GTT - GESTA ROLAND L SCREE N, ACOG OB glucose, 1 hour screen 180 mg/dL 70-135 high Not Available [facility] (Lab) [address] [facility], [place], [address], 06/24/2025 11:45:33 06/23/20 25 06/23/2025 HIV 1/2 ANTIG EN/AN TIBOD Y, REFLE X CONFI RMATI ON HIV antigen/anti body Nonrea ctive nonrea ctive HIV-1 antig en and HIV-1 /HIV- 2 antib odies were not detec greg. No labor atory evide nce of HIV infec tion. Not Available [facility] (Lab) [address] [facility], [place], [address], 06/24/2025 11:45:33 06/23/20 25 06/23/2025 RPR SCREE N, REFLE X TITER /CONF IRMAT ION RPR qualitative Nonrea ctive nonrea ctive Not Available [facility] (Lab) [address] [facility], [place], [address], 06/24/2025 11:45:34 07/21/20 25 07/21/2025 CULTU RE: URINE result report SEE RESULT S BELOW Test: Cultu re: Urine Speci men Sourc e: Urine - Clean Catch Speci men Type: Urine Speci men Date: 2024 1024 Resul t Date: 2024 0252 Resul t Statu s: Final resul t Abnor mal: No Resul ting Lab: [facility] [address] [facility] [address] Tel: CULTU RE ----- ----- ----- --- No growt h in 1 day (dete ction level of 10,00 0 colon ies / ml.) Not Available [facility] (Lab) [address] [place], [address], 07/23/2025 03:57:01 07/21/2007/21/2025 urina lysis , dipst ick Leukocytes ++ Not Available [address], [place], [address], 07/21/2025 11:03:04 07/21/20 25 07/21/2025 urina lysis , dipst ick Nitrite neg Not Available [address], [place], [address], 07/21/2025 11:03:04 07/21/20 25 07/21/2025 urina lysis , dipst ick Urobilinogen neg Not Available Pollo hern[facility] [address], [place], [address], 07/21/2025 11:03:04 07/21/20 25 07/21/2025 urina lysis , dipst ick Protein + Not Available [place] [address], [place], [address], 07/21/2025 11:03:04 07/21/20 25 07/21/2025 urina lysis , dipst ick pH 5 Not Available [place] [address], [place], [address], 07/21/2025 11:03:04 07/21/20 25 07/21/2025 urina lysis , dipst ick Specific [place] 1.030 Not Available [facility] nita [address], [place], [address], 07/21/2025 11:03:04 07/21/20 25 07/21/2025 urina lysis , dipst ick Ketone +++ Not Available [place] [address], [place], [address], 07/21/2025 11:03:04 07/21/20 25 07/21/2025 urina lysis , dipst ick Bilirubin neg Not Available [facility] [address], [place], [address], 07/21/2025 11:03:04 07/21/20 25 07/21/2025 urina lysis , dipst ick Glucose neg Not Available [place] [address], [place], [address], 07/21/2025 11:03:04 07/21/20 25 07/21/2025 urina lysis , dipst ick Appearance cloudy Not Available [address], [place], [address], 07/21/2025 11:03:04 07/21/20 25 07/21/2025 urina lysis , dipst ick Color dark Not Available [address], [place], [address], 07/21/2025 11:03:04 08/04/20 25 08/04/2025 CMP(C OMPRE HENSI VE METAB OLIC PANEL ) sodium 138 mmol/ L 133-14 6 Not Available [facility] (Lab) [address] [facility], [place], [address], 08/05/2025 13:39:18 08/04/20 25 08/04/2025 CMP(C OMPRE HENSI VE METAB OLIC PANEL ) potassium 4.0 mmol/ L 3.5-5. 1 Not Available [facility] (Lab) [address] [facility], [place], [address], 08/05/2025 13:39:18 08/04/20 25 08/04/2025 CMP(C OMPRE HENSI VE METAB OLIC PANEL ) chloride 105 mmol/ L 98-107 Not Available [facility] (Lab) [address] [facility], [place], [address], 08/05/2025 13:39:18 08/04/20 25 08/04/2025 CMP(C OMPRE HENSI VE METAB OLIC PANEL ) carbon dioxide 25 mmol/ L 21-31 Not Available [facility] (Lab) [address] [facility], [place], [address], 08/05/2025 13:39:18 08/04/20 25 08/04/2025 CMP(C OMPRE HENSI VE METAB OLIC PANEL ) anion gap 8 mmol/ L 4-13 Not Available [facility] (Lab) [address] [facility], [place], [address], 08/05/2025 13:39:18 08/04/20 25 08/04/2025 CMP(C OMPRE HENSI VE METAB OLIC PANEL ) blood urea nitrogen 10 mg/dL 7-25 Not Available [facility] (Lab) [address] [facility], [place], [address], 08/05/2025 13:39:18 08/04/20 25 08/04/2025 CMP(C OMPRE HENSI VE METAB OLIC PANEL ) creatinine 0.41 mg/dL 0.60-1 .30 low Not Available [facility] (Lab) [address] [facility], [place], [address], 08/05/2025 13:39:18 08/04/20 25 08/04/2025 CMP(C OMPRE HENSI VE METAB OLIC PANEL ) egfrcr (CKD-epi 2020) >90 mL/mi n/1.7 3_m2 >=60 Not Available [facility] (Lab) [address] [facility], [place], [address], 08/05/2025 13:39:18 08/04/20 25 08/04/2025 CMP(C OMPRE HENSI VE METAB OLIC PANEL ) calcium 8.9 mg/dL 8.3-10 .5 Not Available [facility] (Lab) [address] [facility], [place], [address], 08/05/2025 13:39:18 08/04/20 25 08/04/2025 CMP(C OMPRE HENSI VE METAB OLIC PANEL ) glucose 116 mg/dL 70-100 high Not Available [facility] (Lab) [address] [facility], [place], [address], 08/05/2025 13:39:18 08/04/20 25 08/04/2025 CMP(C OMPRE HENSI VE METAB OLIC PANEL ) protein, total 6.1 g/dL 6.4-8. 3 low Not Available [facility] (Lab) [address] [facility], [place], [address], 08/05/2025 13:39:18 08/04/20 25 08/04/2025 CMP(C OMPRE HENSI VE METAB OLIC PANEL ) albumin 3.5 g/dL 3.5-5. 0 Not Available [facility] (Lab) [address] [facility], [place], [address], 08/05/2025 13:39:18 08/04/20 25 08/04/2025 CMP(C OMPRE HENSI VE METAB OLIC PANEL ) ALT 11 units /L 9-43 Not Available [facility] (Lab) [address] [facility], [place], [address], 08/05/2025 13:39:18 08/04/20 25 08/04/2025 CMP(C OMPRE HENSI VE METAB OLIC PANEL ) alkaline phosphatase 98 units /L 34-104 Not Available [facility] (Lab) [address] [facility], [place], [address], 08/05/2025 13:39:18 08/04/20 25 08/04/2025 CMP(C OMPRE HENSI VE METAB OLIC PANEL ) AST 15 units /L 13-39 Not Available [facility] (Lab) [address] [facility], [place], [address], 08/05/2025 13:39:18 08/04/20 25 08/04/2025 CMP(C OMPRE HENSI VE METAB OLIC PANEL ) bilirubin, total 0.3 mg/dL 0.2-1. 2 Not Available [facility] (Lab) [address] [facility], [place], [address], 08/05/2025 13:39:18 08/04/20 25 08/04/2025 BILE ACIDS , TOTAL bile acids, total 4 umol/ L 0-10 Test Perfo rmed by: [facility] [address] Not Available [facility] (Lab) [address] [facility], [place], [address], 08/05/2025 13:39:19 03/02/20 25 03/02/2025 US, obste tric, nucha l trans lucen cy No observ ation record ed. [email or web address] [place] [address], [place], [address], 03/02/2025 13:35:30 03/02/20 25 03/02/2025 US, obste tric, nucha l trans lucen cy No observ ation record ed. [email or web address] [address], [place], [address], 03/03/2025 14:08:39 03/08/20 25 03/08/2025 US, obste tric, 1st trime ster No observ ation record ed. [email or web address] [place] [address], [place], [address], 03/08/2025 12:22:22 03/08/20 25 03/08/2025 US, obste tric, 1st trime ster No observ ation record ed. [email or web address] [address], [place], [address], 03/10/2025 15:03:13 04/01/20 25 03/24/2025 [email or web address] r monit or No observ ation record ed. [address] [facility], [place], [address], 04/08/2025 12:36:45 04/01/20 25 03/22/2025 [email or web address] r monit or No observ ation record ed. [address] (Pulmonary) [address] [place] [address] [facility], [place], [address], 04/06/2025 08:59:34 04/20/20 25 04/20/2025 US, obste tric, limit ed No observ ation record ed. [email or web address] [place] [address], [place], [address], 04/20/2025 17:39:30 04/20/20 25 04/20/2025 US, obste tric, follo w-up No observ ation record ed. [email or web address] [address], [place], [address], 04/23/2025 08:32:54 04/28/20 25 04/28/2025 US, obste tric, 2nd or 3rd trime ster No observ ation record ed. [email or web address] [place] [address], [place], [address], 04/28/2025 17:48:42 04/28/20 25 04/28/2025 US, obste tric, 2nd or 3rd trime ster No observ ation record ed. [email or web address] [address], [place], [address], 05/04/2025 22:16:11 05/07/20 25 05/07/2025 non-s tress test No observ ation record ed. [address], [place], [address], 05/28/2025 13:33:54 05/21/20 25 05/21/2025 CT, head + brain , w/o contr ast No observ ation record ed. [email or web address], [place], [address], 05/24/2025 13:48:57 05/28/20 25 05/28/2025 US, obste tric, follo w-up No observ ation record ed. [email or web address] [address], [place], [address], 05/28/2025 17:32:34 05/28/20 25 05/28/2025 US, obste tric, follo w-up No observ ation record ed. [email or web address] [address], [place], [address], 06/01/2025 15:13:13 08/10/16 2506/07/2025 US, obste tric, follo w-up No observ ation record ed. [email or web address] [facility] [address] [facility], [place], [address], 06/15/2025 10:53:46 07/07/20 25 07/07/2025 US, obste tric, follo w-up No observ ation record ed. [email or web address] [place] [address], [place], [address], 07/07/2025 13:18:01 07/07/2007/07/2025 US, obste tric, follo w-up No observ ation record ed. [email or web address] [address], [place], [address], 07/07/2025 11:29:37 08/04/20 25 08/04/2025 US, obste tric, follo w-up No observ ation record ed. [email or web address] [place] [address], [place], [address], 08/04/2025 15:08:50 08/04/2008/04/2025 US, obste tric, follo w-up No observ ation record ed. [email or web address] [address], [place], [address], 08/06/2025 10:41:50 08/11/2008/11/2025 non-s tress test No observ ation record ed. [email or web address] [place] [address], [place], [address], 08/11/2025 17:37:52 08/11/20 non-s tress test No observ ation record ed. [email or web address] [place] [address], [place], [address], 08/11/2025 17:38:11 08/15/2008/15/2025 non-s tress test No observ ation record ed. [place] [id number] [facility] [address], [place], [address], 08/21/2025 10:18:57 08/15/2008/15/2025 US, obste tric, bioph ysica l profi le No observ ation record ed. [place] [id number] [facility] [address], [place], [address], 08/17/2025 10:50:53 08/18/2008/18/2025 US, obste tric, bioph ysica l profi le + non-s tress test No observ ation record ed. [email or web address] [place] [address], [place], [address], 08/18/2025 10:21:39 08/18/2008/18/2025 US, obste tric, bioph ysica l profi le + non-s tress test No observ ation record ed. [email or web address] [address], [place], [address], 08/18/2025 10:35:44 08/18/2008/18/2025 non-s tress test No observ ation record ed. [email or web address] [place] [address], [place], [address], 08/18/2025 17:34:03 08/18/20 non-s tress test No observ ation record ed. [email or web address] [place] [address], [place], [address], 08/18/2025 16:06:09 08/25/2008/25/2025 US, obste tric, bioph ysica l profi le + non-s tress test No observ ation record ed. [email or web address] [place] [address], [place], [address], 08/25/2025 18:52:06 08/25/2008/25/2025 US, obste tric, follo w-up No observ ation record ed. [email or web address] [address], [place], [address], 08/25/2025 15:47:28 08/25/2008/25/2025 non-s tress test No observ ation record ed. [email or web address] [place] [address], [place], [address], 08/25/2025 18:12:15 08/25/20 non-s tress test No observ ation record ed. [email or web address] [place] [address], [place], [address], 08/25/2025 17:21:19 08/30/20 25 08/30/2025 non-s tress test No observ ation record ed. [email or web address] [address] [place] [address], [id number], 09/15/2025 15:26:49 09/01/20 25 09/01/2025 non-s tress test No observ ation record ed. [place] [id number] [facility] [address], [place], [address], 09/13/2025 11:32:22 09/01/20 25 09/01/2025 US, obste tric No observ ation record ed. [place] [id number] [facility] [address], [place], [address], 09/02/2025 15:56:01 09/01/20 25 09/01/2025 non-s tress test No observ ation record ed. [email or web address] [id number] [facility] [address], [place], [address], 09/02/2025 14:32:38 09/16/20 25 09/16/2025 CT, angio gram, head + neck, w/ contr ast No observ ation record ed. [email or web address] [facility] [address], [place], [address], 09/16/2025 20:01:05 09/28/20 25 09/28/2025 non-s tress test No observ ation record ed. [email or web address] [facility] [address], [place], [address], 10/04/2025 16:42:40 Result Notes None recorded. Problems Name Problem SNOMED Code Status Onset Date Resolution Date Notes Provider Name and Address Organization Details Recorded Time Hypereme sis [id number] Completed phenerga n now prn [place] ramos [facility] 2 16:43:51 Anxiety in pregnanc y [id number] 9109 Completed will continue to monitor Asia ramos [facility] 2 16:43:51 Past pregnanc y history of gestatio nal diabetes mellitus 280129242 Completed Early 1 hr GTT @ 20wks 11/03 APPT Asia ramos [facility] 2 16:43:51 Spinal muscular atrophy 5384482 Completed Carrier - Not in contact with FOB. Asia ramos [facility] 2 16:43:51 Anxiety 10115716 Completed prozac Karina ramos [facility] 4 11:00:46 Nausea 624017003 Completed d/c zofran pump 11/08 per pt request Karina ramos [facility] 4 11:00:46 Postpart um hemorrha ge 32774106 Completed 2017 with d&c Karina ramos [facility] 4 11:00:46 Normal pregnanc y in multigra jessy [id number] 94511 Completed 201907/05/2021 Encounte r for supervis ion of other normal pregnanc y, 3rd trimeste r;Record ed Elsewher e: No Locat ion: [facility] S ource: EHR Admin Asst yvrose: N Natalyati ce ID: 0001 Gigi lable Time: 10:45:00 AM Karina ramos, [facility] 1 10:15:27 Gestatio n period, 37 weeks 23474182 Completed 201907/05/2021 37 weeks gestatio n of pregnanc y;Record ed Elsewher e: No Locat ion: [facility] S ource: EHR Admin Asst yvrose: N Natalyati ce ID: 0001 Gigi lable Time: 09:00:00 AM Karina ramos [facility] 10:15:[address] Concept Completed 201907/05/2021 Matern care for abnlt fetl hrt rate or rhym, 3rd tri, unsp;Rec orded Elsewher e: No Locat ion: [facility] S ource: EHR Admin Asst yvrose: N Natalyati ce ID: 0001 Gigi lable Time: 08:45:00 AM Karina ramos [facility] 1 10:15:29 Gestatio nal diabetes mellitus 18318297 Completed 201907/05/2021 Gestatio nal diabetes mellitus in pregnanc y, diet controll ed;Recor ded Elsewher e: No Locat ion: [facility] S ource: EHR Admin Asst yvrose: N Practi ce ID: 0001 Gigi lable Time: 11:45:00 AM Karina ramos [facility] 1 10:15:25 Gestatio n period, 38 weeks 19577449 Completed 201907/05/2021 38 weeks gestatio n of pregnanc y;Record ed Elsewher e: No Locat ion: [facility] S ource: EHR Admin Asst yvrose: N Natalyati ce ID: 0001 Gigi lable Time: 11:30:00 AM Karina ramos, [facility] 10:15:13 Amenorrh ea 58280989 Completed 202007/10/2021 Tammi Jones null, [facility] 13:08:35 Pregnanc y 59003933 Completed 202003/29/2022 Emma Dykes [facility], [facility] 12:28:48 Pregnanc y 20358166 Completed 202304/22/2024 Emma Dykes [facility], [facility] 12:28:48 Headache 95283216 Active 2023 Karina Burroughs null, [facility] 16:19:28 Pregnanc y 49668926 Completed 202309/14/2025 Emma Dykes [facility], [facility] 12:28:48 Uncompli cated moderate persiste nt asthma 850201761 Completed 2024 albutero l prn Shawn Bradley MD [address], [place], [address], [facility] 13:08:36 Anxiety 30923953 Completed 2024 sertrali ne started 03/02/25 changed to prozac 10 on Shawn Bradley MD [address], [place], [address], [facility] 17:05:48 Nausea and vomiting 10461440 Completed 2024 Shawn Bradley MD [address], [place], [address], [place] [facility] 5 13:20:27 Placenta circumva llata 5304501 Completed 2024 32wk [facility] 09:44:35 Frequent headache 733545282 Completed 2024 transpor t to [facility] 05/21, discharg e 05/23 MFM referral faxed [...] more than 2-3 times a week. [facility] 10:55:26 Abnormal placenta affectin g manageme nt of mother 59728670 Completed 2024 MCI serial growth [facility] 5 10:46:25 Iron deficien cy anemia 33024678 Completed 2024 SS MFM tx venofer 200mg x1 HGB 10.6 [facility] 5 15:21:25 Gestatio nal diabetes mellitus 51221988 Completed 2024 checking bs QID - ruled in GDM Referral faxed to [facility] 07/07 [facility] 5 14:36:52 Notes:Order faxed to [facility] access 08/10 for PICC line, and home health already caring for pt. Vladimir RDZ at [phone] Problem Notes None recorded. Procedures Surgical History Date Name Laterality Status Provider Name and Address Organization Details Recorded Time 025 SALPINGECTOMY, LAPAROSCOPIC (SURG) completed Not Available [facility] 09/06/2025 11:19:17 025 Date of Last Pap Smear completed Karina Burroughs [facility] 01/28/2025 11:19:42 024 Nexplanon Removal completed Shawn Bradley MD [address], [place], [address], [facility] 08/05/2024 15:09:58 024 Control Implant Insertion completed Anju Mcnamara CNM [address], [place], [address], [facility] 05/08/2024 17:59:34 024 cholecystectomy completed Karina Burroughs [facility] 03/31/2025 09:18:57 018 Dilation and Curettage completed Karina Burroughs [facility] 07/05/2021 10:17:50 Imaging Results None recorded. Procedure Notes None recorded. Medical Equipment None Reported. Allergies Allergen ID Allergen Name Allergen Category Reaction Reaction Severity Criticality Documentation Date Start Date Code Code System Note Provider Name and Address Organization Details Recorded Time 48432 terbutali ne medicatio n anaphylax is Not available Not available 01/27/20252021 04759 RxNorm Karina ramos [facility] 16:19:27 62646 amoxicill in medicatio n Not available Not available Not available 09/10/2025 723 RxNorm Not Available [employer] - prod 16:39:37 52991 terbinafi ne medicatio n anaphylax is Not available [facility] 09/10/20252024 56385 RxNorm Not Available [place] [employer] - prod 16:40:54 Medications Name [...] Prescrib ed Elsewher e: Yes Loca tion: [facility] odify By: prabhjot Lee r DateTime [...] n (supplie d by office) insert lot [id number] Exp 01/2026 Not Available Not Available Not Available 28 mg iron-800 mcg tablet 07/05 completed Prescrib ed Elsewher e: Yes 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 08/18/2025 10:57:44 Date Recorded Body height Body weight Systolic And Diastolic Provider Name and Address Organization Details Last Updated DateTime 08/18/2025 162.56 cm 65087.9960 8 g 116/77 mm[Hg] Emma Dykes [facility] 08/18/2025 16:03:36 Social History Question Answer Notes LastModified by Organizat ion Details LastModified Time Tobacco Smoking Status Former Smoker Karina ramos, [facility] 07/05/2021 09:06:21 If You Are , What Was Your Level Of Alcohol Consumption Prior To ? Occasional [email or web address] Information not available 03/31/2025 Are You Blind Or Do You Have Difficulty Seeing? No [email or web address] Information not available 07/05/2021 What Is Your Level Of Caffeine Consumption? Heavy [email or web address] Information not available 07/05/2021 In The 14 Days Before Symptom Onset, Have You Had Close Contact With A Laboratory-confir med COVID-19 While That Case Was Ill? No [email or web address] Information not available 07/05/2021 In The 14 Days Before Symptom Onset, Have You Had Close Contact With A Person Who Is Under Investigation For COVID-19 While That Person Was Ill? No [email or web address] Information not available 07/05/2021 Have You Been To An Area Known To Be High Risk For COVID-19? No [email or web address] Information not available 07/05/2021 Are You Deaf Or Do You Have Serious Difficulty Hearing? No [email or web address] Information not available 07/05/2021 What Type Of Diet Are You Following? REGULAR [email or web address] Information not available 07/05/2021 Which Illicit Or Recreational Drugs Have You Used? Marijuana [email or web address] Information not available 07/05/2021 Have You Ever Been Counseled For Unhealthy Alcohol Use? No [email or web address] Information not available 07/05/2021 Do You Use Your Seat Belt Or Car Seat Routinely? Yes [email or web address] Information not available 07/05/2021 Do You Have Smoke And Carbon Monoxide Detectors In Your Home? Yes [email or web address] Information not available 07/05/2021 Do You Use Sunscreen Routinely? Yes [email or web address] Information not available 07/05/2021 Has Tobacco Cessation Counseling Been Provided? No Information not available 07/05/2021 Have You Used IV Drugs? No Information not available 07/05/2021 Do You Have Difficulty Walking Or Climbing Stairs? No Information not available 12/06/2021 Sex: Unknown Functional Status Question Answer Note LastModified by Organizat ion Details LastModified Time Do you use any illicit or recreational drugs? Yes [email or web address] Information not available 07/05/2021 Do you or have you ever used any other forms of tobacco or nicotine? Yes [email or web address] Information not available 07/05/2021 What is your level of alcohol consumption? None [email or web address] Information not available 03/31/2025 Do you or have you ever used smokeless tobacco? Never used smokeless tobacco [email or web address] Information not available 07/05/2021 Are you able to walk independently without assistance or assistive devices? YESWOREST [email or web address] Information not available 07/05/2021 Are you able to care for yourself independently? Yes [email or web address] Information not available 12/06/2021 Do you have difficulty dressing, bathing, grooming, or toileting? No [email or web address] Information not available 12/06/2021 Do you or have you ever used e-cigarettes or vape? Current user of electronic cigarettes Information not available 07/05/2021 What is your exercise level? Occasional [email or web address] Information not available 07/05/2021 Mental Status Question Answer Note LastModified by Organization D etails LastModified Time Do you feel stressed (tense, restless, nervous, or anxious, or unable to sleep at night)? [id number] [email or web address] Information not available 07/05/2021 Family History Relationship Description Onset Age of this Age Resolved Age Notes LastModified by Organization Details LastModified Time Father No current problems or disability [email or web address] Not available 05/2021 09:06:31 Mother No current problems or disability [email or web address] Not available 05/2021 09:06:31 Medical History Condition [...] ICD10 Code Diagnosis IMO Codes Diagnosis Note [id number] Anju Mcnamara CNM [place] [address] [address] 07/21/2025 09:28:54 07/21/2025 12:36:06 Pain in pelvis 35523098 R10.2 079647 Gestation period, 32 weeks 6826166 Z3A.32 0031901 [id number] Shawn Bradley MD [place] [address] [place] [address] 08/04/2025 14:02:59 08/04/2025 15:06:33 Gestational diabetes mellitus 09365956 O24.410 O43.103 O43.113 Z3A.34 75937508 [id number] Anju Mcnamara CNM [place] [address] [place] [address] 08/04/2025 14:21:57 08/04/2025 15:26:03 Gestation period, 34 weeks 46600057 Z3A.34 3208390 Pruritic d isorder of skin 1845773446 L29.9 42053 plan labs today, ursadiol BID [id number] [facility] [address] [place] [address] 08/11/2025 14:51:38 08/11/2025 17:16:44 Gestational diabetes mellitus 74417233 O24.414 99397264 [id number] [facility] [address],[place] [address] 08/11/2025 16:25:59 08/11/2025 17:46:32 Gestational diabetes mellitus 16304148 O24.414 94550400 [id number] Shawn Bradley MD [place] [address],[place] [address] 08/18/2025 09:40:51 08/18/2025 10:15:47 Gestational diabetes mellitus 35679008 O24.414 Z3A.36 99540537 [id number] Anju Mcnamara CNM [place] [address],[place] [address] 08/18/2025 09:41:06 08/18/2025 11:24:04 Gestation period, 36 weeks 08735595 Z3A.36 2556011 cont pnv [id number] [facility] [address],[place] [address] 08/18/2025 09:41:16 08/18/2025 16:17:31 Gestational diabetes mellitus class A2 43979111 O24.414 86187915 Health Concerns Section Related Observation LastModified by Organization Detai ls LastModified Time None Recorded Concern Status LastModified by Organization Details LastModified Time None Recorded Payers Encounter Date Sequence Insurance Name Policy Number Policy Roberts Covered Member ID Roberts Member ID Guarantor Name 08/18/2025 1 [facility] (MEDICAID HMO) [id number] Yuni Mejia [id number] Yuni Mejia Notes Date Note Type Note Provider Name and Address Organization Details Recorded Time 08/18/2025 text/html Generic HPI TemplateReported by Patient Anju Mcnamara CNM [address], [place], [address], [facility] 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 Status 03/02/20 1 B Positive 164 CLOSED Fetus Data First Name Last Name Admitted to NICU Weight (g) Sex Living Outcome Pediatric Complications Fetus ID Race Codes Race Delivery Type Ziah false 4025.62 9 F true Full Term 36745 Vaginal Delivery Problems Problem Notes SDH form completed 5GI consult Tachycardia Holter monitor 72 order- pt sent back on 03-27-25 Cardiology referral faxed per Dr Martínez office calling pt 04/21 to schedule consult scheduled 05/11 11:15AM Problem Name Start Date End Date Resolution Snomed Code Not e Uncomplicated moderate persistent asthma 03/02/2025 441108781 albuterol prn Abnormal placenta affecting management of mother 05/04/2025 05374635 MCI serial grow th us Iron deficiency anemia 05/25/2025 50384734 [facility] tx [place] 200mg x1 HGB 10.6 Nausea and vomiting 03/02/2025 08343789 Anxiety 03/02/2025 32371311 sertralin e started 03/02/25 changed to prozac 10 on Gestational diabetes mellitus 07/08/2025 03462986 checking bs QID - ruled in GDM Referral faxed to [facility] 07/07 Frequent headache 05/03/2025 [id number] [place] to [facility] 05/21, discharge 05/23 MF referral faxed 05/[address] [facility] Neurology consult pending per KAJAL Pittman [facility]- Neuro M unable to see pt due to insurance 05/[facility] 07/05/25 Level US & Consult (see [facility] consult zayas recommendations ) regimen prn Imitrex 50mg for acute migraine, vitamin B2 (Riboflavin) 400mg, Coenzyme q10 300mg and magnesium oxide 200 to 600mg daily. minimize use of Excedrin or Tylenol to no more than 2-3 times a week. 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/2025 4014222 32wk growth us Jun Calculation Initial Jun [...] Weight in lbs Pre/Post Dialysis Refused Weight 158.475383001405 BP Diastolic BP Location Tested BP Systolic [...] Weight in lbs Pre/Post Dialysis Refused Weight 158.911338789389 BP Diastolic BP Location Tested BP Systolic [...] Weight in lbs Pre/Post Dialysis Refused Weight 162.096567571132 BP Diastolic BP Location Tested BP Systolic BP Type 78 123 Fetus Heart Rate Present A 148 Fetus Movement A Yes Comments Patient is having having ronny n, cramping and vaginal discharge. went to ed exam done cultures and rx sent, ?FM, await director oncology results rfilled zofran, precautions and education f/u [...] Type Weight in lbs Pre/Post Dialysis Refused 168.982454539047 BP Diastolic BP Location Tested BP Systolic [...] Type Weight in lbs Pre/Post Dialysis Refused 169.075481074335 BP Diastolic BP Location Tested BP Systolic [...] Weight in lbs Pre/Post Dialysis Refused Weight 175.214006772251 BP Diastolic BP Location Tested BP Systolic [...] Weight in lbs Pre/Post Dialysis Refused Weight 182.195755177910 BP Diastolic BP Location Tested BP Systolic [...] Weight in lbs Pre/Post Dialysis Refused Weight 181.933919444739 BP Diastolic BP Location Tested BP Systolic BP Type 73 L arm 131 sitting Fetus Heart Rate Present Fetus Movement A Yes Comments viral URI testied neg at urg ent care, nausea resolved, efw 68%, +FM plan education and precautions f/u 2 weeks diagnosed GDM, plan full stack web developer, gave list reviewed protein vs carb Flowsheet Date 07/21/2025 Gibson Score Blood Edema Fundus Height Fundus Units Glucose Ketones Leukocytes Nitrite Labor Signs Protein Cervic Dilation Cervic Effacement Cervic Station Type Weight in lbs Pre/Post Dialysis Refused Weight 181.339302177115 BP Diastolic BP Location Tested BP Systolic BP Type 78 L arm 127 sitting Fetus Heart Rate Present A 150 Fetus Movement A Yes Comments rpt urine culture +FM review ed blood sugars, meets with full stack web developer today, precautions and education f/u 2 weeks [...] Weight in lbs Pre/Post Dialysis Refused Weight 181.670240945371 BP Diastolic BP Location Tested BP Systolic [...] Weight in lbs Pre/Post Dialysis Refused Weight 183.488145943329 BP Diastolic BP Location Tested BP Systolic [...] Type Weight in lbs Pre/Post Dialysis Refused 184.143630196204 BP Diastolic BP Location Tested BP Systolic [...] Type Weight in lbs Pre/Post Dialysis Refused 184.704735646398 BP Diastolic BP Location Tested BP Systolic [...] Type Weight in lbs Pre/Post Dialysis Refused 184.995511325425 BP Diastolic BP Location Tested BP Systolic [...] Weight in lbs Pre/Post Dialysis Refused Weight 184.186724493495 BP Diastolic BP Location Tested BP Systolic [...] Weight in lbs Pre/Post Dialysis Refused Weight 164.354787867904 BP Diastolic BP Location Tested BP Systolic [...]
--- OUTSIDE RECORDS SUMMARY | 2025-10-27 12:16 | XMS_ITS ---
Author Organization Unknown Address [address] [place] [phone] Phone Care Team Providers Care Dietary Worker Name Role Phone MARK Fernandez Attending Unavailable [...] em Smoking History Never smoker (Never Smoked) 929163691 SNOMED CT Sex Female Assessment You had [...] 6002 SNOMED-CT UNSPECIFIED ABDOMINAL PAIN active 215 83010 SNOMED-CT Allergies and Adverse Reactions Allergy Substance Reaction Severity Start Date Concern Status Co de Code System AMOXICILLIN Active 723 RxNorm TERBUTALINE Active 77100 RxNorm Plan of Treatment Stress Test Treadmill 01/21/2025 Barge Pilot Consult 04/27/2025 Encounters Encounter Diagnosis Start Date [...]
--- OUTSIDE RECORDS SUMMARY | 2025-10-27 12:16 | XMS_ITS ---
Author Organization Unknown Address [address] [place] [address] [phone] Phone Care Team Providers Care Carbonation Equipment Tender Name Role Phone MARK Fernandez Attending Unavailable [...] em Smoking History Never smoker (Never Smoked) 082544081 SNOMED CT Sex Female Assessment You had [...] 6002 SNOMED-CT UNSPECIFIED ABDOMINAL PAIN active 215 43074 SNOMED-CT Allergies and Adverse Reactions Allergy Substance Reaction Severity Start Date Concern Status Co de Code System AMOXICILLIN Active 723 RxNorm TERBUTALINE Active 87806 RxNorm Plan of Treatment Stress Test Treadmill 01/21/2025 Director Of Medical Review Consult 04/27/2025 Encounters Encounter Diagnosis Start Date [...]
--- OUTSIDE RECORDS SUMMARY | 2025-10-27 12:16 | XMS_ITS | Data Portability ---
Author Organization [facility], [facility] Address [address] [place] [address] Care Team Providers Care Mail Service Coordinator Name Role Phone CARLOS ESTRADA Primary Care Provider Assessment No assessment recorded. Plan of Treatment Reminders Order Date Submit Date Provider Last Modified By Organization Details Last Modified Time Details Appointments None recorded. Lab culture, aerobic + anaerobic 2024 [facility] (Lab), [address] [place], [address], 12:16:51 Referral None recorded. Procedures None recorded. Surgeries None recorded. Imaging None recorded. Medication Orders nifedipine ER 30 mg tablet,exte nded release 24 hr 2024 [facility] [address] [place], [address], 5 15:19:36 Xanax 0.25 mg tablet 2024 025 [facility] [address] [place], [address], 5 15:24:15 sertraline 100 mg tablet 2024 025 [facility] [address] [place], [address], 5 13:06:11 lamotrigine 25 mg tablet 2024 025 [facility] [address] [place], [address], 13:06:10 Patient TargetsNo targets recorded. Patient InstructionsNo instructions recorded. Reason for Referral None Reported. Results Created Date Observation Date Name Description Value Unit Range Abnormal Flag Note LastModifiedBy Organization Detail LastModifiedTime 08/15/2008/15/2025 non-s tress test No observ ation record ed. [address], [place], [address], 08/21/2025 10:18:57 08/15/2008/15/2025 US, obste tric, bioph ysica l profi le No observ ation record ed. [address], [place], [address], 08/17/2025 10:50:53 08/18/2008/18/2025 US, obste tric, bioph ysica l profi le + non-s tress test No observ ation record ed. [email or web address] [place] [address], [place], [address], 08/18/2025 10:21:39 08/18/2008/18/2025 US, obste tric, bioph ysica l profi le + non-s tress test No observ ation record ed. [email or web address] [address]sha [address], [place], [address], 08/18/2025 10:35:44 08/18/2008/18/2025 non-s tress test No observ ation record ed. [email or web address] [place] [place] [address], [place], [address], 08/18/2025 17:34:03 08/18/20 non-s tress test No observ ation record ed. [email or web address] [place] [address], [place], [address], 08/18/2025 16:06:09 08/25/20 25 08/25/2025 US, obste tric, bioph ysica l profi le + non-s tress test No observ ation record ed. [email or web address] [place] [facility] [address], [place], [address], 08/25/2025 18:52:06 08/25/20 25 08/25/2025 US, obste tric, follo w-up No observ ation record ed. [email or web address] Esha [address], [place], [address], 08/25/2025 15:47:28 08/25/20 25 08/25/2025 non-s tress test No observ ation record ed. [address], [place], [address], 08/25/2025 18:12:15 08/25/20 non-s tress test No observ ation record ed. [email or web address], [place], [address], 08/25/2025 17:21:19 08/30/20 25 08/30/2025 non-s tress test No observ ation record ed. [place] [id number] [facility] [address] [facility], [place], [address], 09/15/2025 15:26:49 09/01/20 25 09/01/2025 non-s tress test No observ ation record ed. [email or web address] [facility] [address] [facility] [address], [place], [address], 09/13/2025 11:32:22 09/01/20 25 09/01/2025 US, obste tric No observ ation record ed. [email or web address] [place] [address] [address] [facility] [address], [place], [address], 09/02/2025 15:56:01 09/01/20 25 09/01/2025 non-s tress test No observ ation record ed. [email or web address] [facility] [address], [place], [address], 09/02/2025 14:32:38 09/16/20 25 09/16/2025 CT, angio gram, head + neck, w/ contr ast No observ ation record ed. [email or web address] [facility] [address] [facility] [address], [place], [address], 09/16/2025 20:01:05 09/28/20 25 09/28/2025 non-s tress test No observ ation record ed. [email or web address] [facility] [address], [place], [address], 10/04/2025 16:42:40 Result Notes None recorded. Problems Name Problem SNOMED Code Status Onset Date Resolution Date Notes Provider Name and Address Organization Details Recorded Time Hypereme sis 898451046 Completed phenerga n now prn Asia arias [facility] 2 16:43:51 Anxiety in pregnanc y 5253910827 9109 Completed will continue to monitor Asia arias [facility] 2 16:43:51 Past pregnanc y history of gestatio nal diabetes mellitus 682782320 Completed Early 1 hr GTT @ 20wks 11/03 APPT Asia arias [facility] 2 16:43:51 Spinal muscular atrophy 0134591 Completed Carrier - Not in contact with FOB. Asia arias [facility] 2 16:43:51 Anxiety 17567178 Completed prozac Karina Burroughs [facility], [facility] 4 11:00:46 Nausea 046391315 Completed d/c zofran pump 11/08 per pt request Karina ramos, [facility] 4 11:00:46 Postpart um hemorrha ge 37507573 Completed 2017 with d&c Karina ramos, [facility] 4 11:00:46 Normal pregnanc y in multigra jessy 8466035281 61542 Completed 201907/05/2021 Encounte r for supervis ion of other normal pregnanc y, 3rd trimeste r;Record ed Elsewher e: No Locat ion: [facility] S ource: EHR Director Of Business Operations yvrose: N Practi ce ID: [email or web address] Gigi lable Time: 10:45:00 AM Karina ramos [facility] 10:15:27 Gestatio n period, 37 weeks 24072970 Completed 201907/05/2021 37 weeks gestatio n of pregnanc y;Record ed Elsewher e: No Locat ion: [facility] S ource: EHR Director Of Business Operations yvrose: N Practi ce ID: [email or web address] Gigi lable Time: 09:00:00 AM Karina ramos, [facility] 10:15:[address] Concept Completed 201907/05/2021 Matern care for abnlt fetl hrt rate or rhym, 3rd tri, unsp;Rec orded Elsewher e: No Locat ion: [facility] S ource: EHR Director Of Business Operations yvrose: N Practi ce ID: [email or web address] Gigi lable Time: 08:45:00 AM Karina ramos [facility] 10:15:29 Gestatio nal diabetes mellitus 21788598 Completed 201907/05/2021 Gestatio nal diabetes mellitus in pregnanc y, diet controll ed;Recor ded Elsewher e: No Locat ion: [facility] S ource: EHR Director Of Business Operations yvrose: N Practi ce ID: [email or web address] Gigi lable Time: 11:45:00 AM Karina Burroughs null, [facility] 10:15:25 Gestatio n period, 38 weeks 89173379 Completed 201907/05/2021 38 weeks gestatio n of pregnanc y;Record ed Elsewher e: No Locat ion: Jaelyn castillo [facility] S ource: EHR Director Of Business Operations yvrose: N Practi ce ID: [email or web address] Gigi lable Time: 11:30:00 AM Karina Burroughs null, [facility] 10:15:13 Amenorrh ea 88507229 Completed 202007/10/2021 Tammi Jones null, [facility] 13:08:35 Pregnanc y 26741883 Completed 202003/29/2022 Emma Dykes [facility], [facility] 5 12:28:48 Pregnanc y 24297961 Completed 202304/22/2024 Emma Dykes null, [facility] 5 12:28:48 Headache 00074697 Active 2023 Karina Burroughs null, [facility] 16:19:28 Pregnanc y 74339872 Completed 202309/14/2025 Emma Dykes null, [facility] 5 12:28:48 Uncompli cated moderate persiste nt asthma 647480710 Completed 2024 julio Bradley MD [address], [place], [address], [place] [facility] 13:08:36 Anxiety 59994236 Completed 2024 sertrali ne started 03/02/25 changed to prozac 10 on Shawn Bradley MD [address], [place], [address], [place] [facility] 5 17:05:48 Nausea and vomiting 10515331 Completed 2024 Shawn Bradley MD [address], [place], [address], [facility] 5 13:20:27 Placenta circumva llata 0507290 Completed 2024 32wk [facility] 09:44:35 Frequent headache 704838233 Completed 2024 transpor t to [facility] 05/21, discharg e 05/23 [facility] referral faxed 05/24 [facility] consult pending per KAJAL Pittman [facility]- Neuro [facility] unable [...] than 2-3 times a week. Ryann ramos [facility] 5 10:55:26 Abnormal placenta affectin g manageme nt of mother 97282247 Completed 2024 [facility] serial [facility] 10:46:25 Iron deficien cy anemia 35984429 Completed 2024 SS MFM tx venofer 200mg x1 HGB 10.6 Ryann ramos [facility] 5 15:21:25 Gestatio nal diabetes mellitus 97972254 Completed 2024 checking bs QID - ruled in GDM Referral faxed to [facility] 07/07 Ryann Castro [facility] 14:36:52 Notes:[facility] 08/10 for PICC line, and home health already caring for pt. Vladimir RN at [phone] Problem Notes None recorded. Procedures Surgical History Date Name Laterality Status Provider Name and Address Organization Details Recorded Time 025 SALPINGECTOMY, LAPAROSCOPIC (SURG) completed Not Available [facility] 09/06/2025 11:19:17 025 Date of Last Pap Smear completed Karina Burroughs [facility] 01/28/2025 11:19:42 024 Nexplanon Removal completed Shawn Bradley MD [address], [place], [address], [facility] 08/05/2024 15:09:58 024 Control Implant Insertion completed Anju Mcnamara CNM [address], [place], [address], [facility] 05/08/2024 17:59:34 024 cholecystectomy completed Karina Burroughs [facility] 03/31/2025 09:18:57 018 Dilation and Curettage completed Karina Burroughs [facility] 07/05/2021 10:17:50 Imaging Results None recorded. Procedure Notes None recorded. Medical Equipment None Reported. Allergies Allergen ID Allergen Name Allergen Category Reaction Reaction Severity Criticality Documentation Date Start Date Code Code System Note Provider Name and Address Organization Details Recorded Time 32325 terbutali ne medicatio n anaphylax is Not available Not available 01/27/20252021 75869 RxNorm [facility] 16:19:27 24395 amoxicill in medicatio n Not available Not available Not available 09/10/2025 723 RxNorm Not Available gene - External Data Service - prod 16:39:37 62421 terbinafi ne medicatio n anaphylax is Not available high 09/10/20252024 67217 RxNorm Not Available tofte - External Data Service - prod 16:40:54 [...] Prescrib ed Elsewher e: Yes Loca tion: [facility] odify By: [email or web address] Encounte r DateTime : [...] n (supplie d by office) insert lot [id number] Exp 01/2026 Not Available Not Available Not Available 28 mg iron-800 mcg tablet 07/05 completed Prescrib ed Elsewher e: Yes Loca tion: Jaelyn castillo [facility] M odify By: [email or web address] Encounte r DateTime : 01/14/20 10:45:00 AM Not Available Not Available Not Available lidocaine 5 % topical ointment APPLY OINTMENT EXTERNAL LY TO RIBS THREE TIMES DAILY NEEDED 01/14 completed Not Available Not Available Not Available [employer]-PN[facility]-DH A 28 mg iron-1 mg-200 mg capsule [...] Updated DateTime 09/14/2025 162.56 cm 28.2 kg/m2 13525.15 g 153/91 mm[Hg] 142/79 mm[Hg] Emma Dykes [place] - [facility] 12:29:23 Date Recorded Body height Body mass index (BMI) Body weight Systolic And Diastolic Provider Name and Address Organization Details Last Updated DateTime 09/20/2025 162.56 cm 28.2 kg/m2 51537.15 g 152/98 mm[Hg] Melyssa [facility] 09/20/2025 15:11:55 Date Recorded Body height Body mass index (BMI) Body weight Systolic And Diastolic Provider Name and Address Organization Details Last Updated DateTime 09/29/2025 162.56 cm 27.5 kg/m2 48812.78 g 131/89 mm[Hg] Melyssa [facility] 09/29/2025 14:33:38 Date Recorded Body height Body mass index (BMI) Body weight Systolic And Diastolic Provider Name and Address Organization Details Last Updated DateTime 10/15/2025 162.56 cm 27.1 kg/m2 41595.59 g 127/83 mm[Hg] Mema Donis [facility] 10/15/2025 11:26:28 Social History Question Answer Notes LastModified by Organizat ion Details LastModified Time Tobacco Smoking Status Former Smoker Karina ramos, [facility] 07/05/2021 09:06:21 If You Are , What Was Your Level Of Alcohol Consumption Prior To ? Occasional [email or web address] Information not available 03/31/2025 Are You Blind Or Do You Have Difficulty Seeing? No [email or web address] Information not available 07/05/2021 What Is Your Level Of Caffeine Consumption? Heavy [email or web address] Information not available 07/05/2021 In The 14 Days Before Symptom Onset, Have You Had Close Contact With A Laboratory-confir med COVID-19 While That Case Was Ill? No [email or web address] Information not available 07/05/2021 In The 14 Days Before Symptom Onset, Have You Had Close Contact With A Person Who Is Under Investigation For COVID-19 While That Person Was Ill? No [email or web address] Information not available 07/05/2021 Have You Been To An Area Known To Be High Risk For COVID-19? No [email or web address] Information not available 07/05/2021 Are You Deaf Or Do You Have Serious Difficulty Hearing? No [email or web address] Information not available 07/05/2021 What Type Of Diet Are You Following? REGULAR [email or web address] Information not available 07/05/2021 Which Illicit Or Recreational Drugs Have You Used? Marijuana [email or web address] Information not available 07/05/2021 Have You Ever Been Counseled For Unhealthy Alcohol Use? No [email or web address] Information not available 07/05/2021 Do You Use Your Seat Belt Or Car Seat Routinely? Yes [email or web address] Information not available 07/05/2021 Do You Have Smoke And Carbon Monoxide Detectors In Your Home? Yes [email or web address] Information not available 07/05/2021 Do You Use Sunscreen Routinely? Yes [email or web address] Information not available 07/05/2021 Has Tobacco Cessation Counseling Been Provided? No [email or web address] Information not available 07/05/2021 Have You Used IV Drugs? No [email or web address] Information not available 07/05/2021 Do You Have Difficulty Walking Or Climbing Stairs? No [email or web address] Information not available 12/06/2021 Sex: Unknown Functional Status Question Answer Note LastModified by [employer] ion Details LastModified Time Do you use any illicit or recreational drugs? Yes [email or web address] Information not available 07/05/2021 Do you or have you ever used any other forms of tobacco or nicotine? Yes [email or web address] Information not available 07/05/2021 What is your level of alcohol consumption? None [email or web address] Information not available 03/31/2025 Do you or have you ever used smokeless tobacco? Never used smokeless tobacco [email or web address] Information not available 07/05/2021 Are you able to walk independently without assistance or assistive devices? [email or web address] Information not available 07/05/2021 Are you able to care for yourself independently? Yes [email or web address] Information not available 12/06/2021 Do you have difficulty dressing, bathing, grooming, or toileting? No [email or web address] Information not available 12/06/2021 Do you or have you ever used e-cigarettes or vape? Current user of electronic cigarettes [email or web address] Information not available 07/05/2021 What is your exercise level? Occasional [email or web address] Information not available 07/05/2021 Mental Status Question Answer Note LastModified by Organization D etails LastModified Time Do you feel stressed (tense, restless, nervous, or anxious, or unable to sleep at night)? [id number] [email or web address] Information not available 07/05/2021 Family History Relationship Description Onset Age of this Age Resolved Age Notes LastModified by Organization Details LastModified Time Father No current problems or disability Not available 05/2021 09:06:31 Mother No current problems or disability [email or web address] Not available 05/2021 09:06:31 Medical History Condition [...] ICD10 Code Diagnosis IMO Codes Diagnosis Note [id number] KRISTEN [place] [address],[facility] [place] [address] 07/05/2021 09:58:05 07/05/2021 11:16:35 Pityriasis versicolor 10704612 B36.0 also wash with selsum blue shampoo Vaginitis 94784406 N76.0 Nausea 112613135 R11.0 Contracept ion care management 187505612 Z30.9 01121 Betsey Joya [facility] [address] [address] 08/02/2021 10:30:44 08/04/2021 10:07:43 Severe hyperemesis gravidarum 648884974 O21.1 Pt has not held anything down for more than 24 hours. Sent to ER for hydration and evaluation . We have discussed dietary precaution s. Recommend very small frequent meals. Avoid greasy, spicy or trigger foods. I do believe she may benefit from home health for fluids and IV antiemetic s. [id number] Anju Mcnamara [facility] [address] [address] 08/08/2021 10:22:11 08/08/2021 13:42:05 Depressive disorder 71526745 F32.A in an emergency mercy info given and kettler reminder, if increased thoughts or plan to hospital for immediate care, pt agrees, continue counseling , will try lexapro once can keep down fluids, se reviewed Gynecologi c examination 69498084 Z01.419 Z11.3 Z11.8 Amenorrhea 88887530 N91. 2 plan NOB and first look Nausea and vomiting 1693 1999 R11.2 unable to leave urine, unable at this time to go to LD, encouraged to go to LD for hydration, working on home health services, [id number] Shawn Bradley MD [place] [address],[place] [address] 08/08/2021 10:21:08 08/08/2021 10:53:33 Routine care 960646631 Z34.91 Z3A.08 [id number] Anju Mcnamara [facility] [address],[place] [address] 09/13/2021 14:51:52 09/14/2021 13:44:23 test positive 667790755 Z32.01 Routine an tenatal care 207687721 Z34.91 [id number] Shawn Bradley MD [facility] [place] [address],[place] [address] 09/13/2021 15:35:32 09/13/2021 16:26:27 screening 380542458 Z36.82 [id number] Betsey Joya [facility] [address] [address] 10/09/2021 12:26:15 10/09/2021 17:39:00 Urinary symptoms 801464831 R39.9 Fatigue 75585837 R53.83 Venereal d isease screening 378971188 Z11.3 04176 Anju Mcnamara [facility] [address],[place] [address] 10/16/2021 11:57:23 10/16/2021 12:48:11 Routine care 417957948 Z34.91 [id number] Anju Mcnamara [facility] [address],[place] [address] 11/03/2021 11:32:21 11/03/2021 13:52:13 Routine care 525622700 Z34.91 [id number] Shawn Bradley MD [place] [address],[place] [address] 11/03/2021 11:31:37 11/03/2021 12:34:34 screening for malformation 391607106 Z36.3 [id number] Anju Mcnamara [facility] [address] [address] 12/06/2021 14:46:58 12/06/2021 16:07:59 Routine care 063806651 Z34.91 Iron defic iency anemia 98098597 D50.9 Anxiety 15706905 F41.9 [id number] Shawn Bradley MD [place] [address] [address] 12/06/2021 14:46:10 12/06/2021 15:18:30 condition affecting obstetrical care of mother 046630330 O35.8XX0 Z3A.25 [id number] Anju Mcnamara [facility] [address],[place] [address] 12/22/2021 11:04:34 12/22/2021 11:32:13 Routine care 201678034 Z34.91 [id number] Shawn Bradley MD [place] [address],[place] [address] 01/03/2022 14:21:04 01/03/2022 15:48:26 Uterine size for dates discrepancy 353036154 O26.843 Z3A.29 59446 Anju Mcnamara [facility] [address],[place] [address] 01/03/2022 14:21:33 01/03/2022 15:13:41 Routine care 945047599 Z34.91 [id number] Anju Mcnamara [facility] [address] [address] 01/17/2022 16:53:11 01/17/2022 17:24:14 Routine care 647715987 Z34.91 Persistent cough 8833186 02 R05.3 44886 Betsey Joya [facility] [address],[place] [address] 02/06/2022 09:22:49 02/06/2022 09:55:25 Routine care 098356371 Z34.93 [id number] Shawn Bradley MD [place] [address],[place] [address] 02/13/2022 14:43:16 02/13/2022 15:26:49 Poor growth affecting management 723602658 O36.5930 Z3A.35 [id number] Anju Mcnamara [facility] [address],[place] [address] 02/16/2022 15:13:14 02/16/2022 15:58:27 Routine care 517533904 Z34.91 [id number] [facility] [address] [address] 03/02/2022 15:02:03 03/02/2022 15:28:58 Routine care 699674683 Z34.91 [id number] Cassy BOLA Vo [place] [address],[place] [address] 03/27/2022 10:37:37 03/27/2022 11:14:18 Mixed anxiety and depressive disorder 828646509 F41.8 Chest pain 75215810 R07. 9 She has a hx of [...] treatment for anxiety/de pression.Bianca peng has a boom truck driver that will take her to [place] ED (vitals are WNL, no acute distress noted).She has no thoughts of harming herself or others.She will call the office to schedule an appointmen t to be seen after ED evaluation . We discussed at that time can start therapy for depression /anxiety. RTC after cleared by ED Time spent with the patient was 20 minutes [id number] Shawn Bradley MD [place] [address],[place] [address] 04/16/2022 15:11:58 04/16/2022 17:11:09 Mixed anxiety and depressive disorder 757112278 F41.8 this patient is a 22-year-ol d [...] ce. More than 50% was counseling . [id number] Shawn Bradley MD [place] [address] [address] 04/16/2022 16:43:28 04/16/2022 17:34:26 Abnormal uterine bleeding 7511134222 9100 N93.9 [id number] BOLA Miller [place] [address] [address] 06/19/2022 17:24:32 06/19/2022 18:03:44 Abnormal uterine bleeding 7491585030 9100 N93.9 We discussed likely spotting is [...] of plan of care. Pain in pelvis 82345382 R10.2 Contracept ion care management 063938686 Z30.9 Irregular periods 735790 07 N92.6 Venereal d isease screening 907559602 Z11.3 Anxiety 15330757 F41.9 [id number] Shawn Bradley MD [place] [address],[place] [address] 10/02/2023 13:44:25 10/02/2023 14:07:54 screening 233969367 Z36.82 Z36.87 Z3A.11 350101 Anju Mcnamara [facility] [address] [address] 10/02/2023 13:46:45 10/02/2023 14:50:25 Amenorrhea 94469303 N91.2 plan NOB and first look NIPT and labs todaywants tubal ligation after delivery Gynecologi c examination 29742753 Z01.419 Z11.3 Z11.8 Nausea and vomiting 1693 2000 R11.2 [id number] Anju Mcnamara [facility] [address],[place] [address] 11/01/2023 11:17:59 11/01/2023 13:01:44 Gestation period, 16 weeks 65319828 Z3A.16 Anxiety 26171794 F41.9 [id number] Shawn Bradley MD [place] [address] [address] 11/27/2023 14:04:37 11/27/2023 15:16:15 screening for malformation 372647553 Z36.3 Z3A.19 [id number] Anju Mcnamara [facility] [address] [address] 11/27/2023 14:13:33 11/27/2023 15:31:00 Routine care 502263347 Z34.91 [id number] [facility] [address] [address] 12/25/2023 14:51:56 12/25/2023 15:52:45 Routine care 197822523 Z34.91 [id number] Anju Mcnamara [facility] [address] [address] 02/14/2024 14:13:14 02/14/2024 16:07:12 Routine care 861381588 Z34.91 [id number] Anju Mcnamara [facility] [address],[place] [address] 03/27/2024 11:47:21 03/27/2024 12:30:07 Routine care 111090433 Z34.91 [id number] Anju Mcnamara [facility] [address],[place] [address] 05/08/2024 14:54:41 05/11/2024 09:00:41 Screening procedure 69941947 Z13.9 Implantati on of subcutaneous contraceptive 730441482 Z30.46 reviewed se risks and benefits, bandage until skin closes, pressure bandage x 24 hourswill schedule bilateral salpingect kateryna with dr. bradley care 98882872 8 Z39.2 continue multivitam in Sterilizat ion requested [id number] Z30.2 [id number] Shawn Bradley MD [facility] [address],[place] [address] 08/05/2024 13:57:53 08/05/2024 15:11:54 Contraception care management 588843918 Z30.9 Nexplanon removed without complicati ons. She tolerated well. [id number] Shawn Bradley MD [facility] [address],[place] [address] 01/14/2025 11:51:17 01/14/2025 12:53:24 Uncertain viability of 142884634 Z3A.01 [id number] Shawn Bradley MD [facility] [address],[place] [address] 1 01/14/2025 11:51:38 01/15/2025 09:38:25 Pain in pelvis 63599244 R10.2 25-year-ol d female presents for ER [...] care. She will return in 2 weeks. [id number] Shawn Bradley MD [facility] [address],[facility] [place] [address] 01/27/2025 14:42:15 01/27/2025 15:35:58 Abdominal pain in 562445046 O99.891 Z3A.01 [id number] Shawn Bradley MD [facility] [address],[facility] [place] [address] 01/27/2025 14:55:24 01/27/2025 16:41:41 Amenorrhea 45704110 N91.2 Z32.01 this patient is a 25-year-ol [...] begin routine care at her next visit. [id number] Shawn Bradley MD [facility] [address],[facility] [place] [address] 02/04/2025 10:09:23 02/04/2025 10:48:21 Headache 27845783 R51.9 Nausea and vomiting 1693 2000 R11.2 [...] to labor and delivery for IV fluids. [id number] Shawn Bradley MD [facility] [address],[place] [address] 03/02/2025 12:17:19 03/02/2025 12:53:50 screening 666142025 Z36.82 Z3A.11 [id number] MD Shun Galarza [address],[place] [address] 1 03/02/2025 12:17:40 03/02/2025 15:40:54 Anxiety 22203809 F41.9 24574 care status 24 4421823 Z34.81 00321152 [id number] Shawn Bradley MD [facility] [address],[place] [address] 03/08/2025 10:47:16 03/08/2025 11:13:32 Complication occurring during 135298631 O99.891 Z3A.13 [id number] Shawn Bradley MD [facility] [address],[place] [address] 1 03/12/2025 15:59:57 03/13/2025 11:16:32 Urinary symptoms 303998159 R39.9 46724 Anxiety 41039130 F41.9 37688 Headache 82175395 R51.9 G89.29 845002621 [id number] Anju Mcnamara [facility] [address],[place] [address] 03/31/2025 08:58:49 03/31/2025 12:05:58 Urinary symptoms 548450601 R39.9 34982 Yeast detected 984957822 B37.9 6953812937 Nausea 589774585 R11.0 91688 [id number] Shwan Bradley MD [facility] [address],[place] [address] 04/20/2025 16:29:09 04/20/2025 17:09:27 Uncertain viability of 766572073 O36.80X1 Z3A.19 8477180 [id number] Shawn Bradley MD [facility] [address],[place] [address] 04/22/2025 09:24:41 04/26/2025 09:10:43 Acute back pain with sciatica 833267059 M54.40 76172069 Migraine w ithout aura, not refractory 247102665 G43.261 2445020 care status 24 2861691 Z34.82 45964850 [id number] Shawn Bradley MD [facility] [address],[place] [address] 04/28/2025 13:46:05 04/28/2025 15:08:40 Ultrasound scan - obstetric 648672489 Z36.3 Z3A.20 80319 [id number] [facility] [address],[place] [address] 04/28/2025 13:46:26 04/28/2025 15:22:57 Gestation period, 20 weeks 54577117 Z3A.20 5359711 [id number] Shawn Braldey MD [facility] [address],[place] [address] 05/28/2025 13:46:14 05/28/2025 14:40:01 Abnormal placenta affecting management of mother 41502248 O43.192 Z3A.24 65775123 [id number] Anju Mcnamara CNM [facility] [address],[place] [address] 05/28/2025 13:46:33 05/28/2025 15:52:47 Gestation period, 24 weeks 177596521 Z3A.24 7784862 cont pnv [id number] Shawn Bradley MD [facility] [address],[place] [address] 06/23/2025 13:43:13 06/25/2025 17:52:18 [id number] Anju Mcnamara CNM [facility] [address],[place] [address] 1 06/23/2025 13:43:28 06/23/2025 15:58:03 Heartburn 32890683 R12 49181 Gestation period, 28 weeks 37604801 Z3A.28 6481093 [id number] Shawn Bradley MD [facility] [address],[place] [address] 07/07/2025 10:14:22 07/07/2025 11:00:23 Anomaly of placenta 15830719 O43.103 Z3A.30 2764469 [id number] [facility] [address],[place] [address] 07/07/2025 10:14:33 07/07/2025 11:38:54 Gestation period, 30 weeks 35322321 Z3A.30 5728376 cont pnv Nausea 572188960 R11.0 50051 Gestationa l diabetes mellitus 20820230 O24.419 53174909 [id number] [facility] [address],[place] [address] 07/21/2025 09:28:54 07/21/2025 12:36:06 Pain in pelvis 79617670 R10.2 202689 Gestation period, 32 weeks 9161390 Z3A.32 3641822 [id number] Shawn Bradley MD [facility] [address] [place] [address] 08/04/2025 14:02:59 08/04/2025 15:06:33 Gestational diabetes mellitus 30827411 O24.410 O43.103 O43.113 Z3A.34 86592794 [id number] [facility] [address],[place] [address] 08/04/2025 14:21:57 08/04/2025 15:26:03 Gestation period, 34 weeks 67085691 Z3A.34 0781435 Pruritic d isorder of skin 4565731379 L29.9 99790 plan labs today, ursadiol BID [id number] [facility] [address] [place] [address] 08/11/2025 14:51:38 08/11/2025 17:16:44 Gestational diabetes mellitus 27782548 O24.414 11102504 [id number] Anju Mcnamara [facility] [address],[place] [address] 08/11/2025 16:25:59 08/11/2025 17:46:32 Gestational diabetes mellitus 99373246 O24.414 33825167 [id number] hSawn Bradley MD [facility] [address],[place] [address] 1 08/18/2025 09:40:51 08/18/2025 10:15:47 Gestational diabetes mellitus 93256051 O24.414 Z3A.36 02155178 [id number] Anju Mcnamara [facility] [address],[place] [address] 1 08/18/2025 09:41:06 08/18/2025 11:24:04 Gestation period, 36 weeks 63146019 Z3A.36 4944077 cont pnv [id number] [facility] [address],[place] [address] 08/18/2025 09:41:16 08/18/2025 16:17:31 Gestational diabetes mellitus class A2 00643346 O24.414 50056061 [id number] Shawn Bradley MD [facility] [address],[place] [address] 08/25/2025 14:26:29 08/25/2025 15:14:02 Gestational diabetes mellitus 68560538 O24.414 85870512 [id number] [facility] [address],[place] [address] 08/25/2025 14:26:57 08/25/2025 15:53:52 Gestation period, 37 weeks 76882506 Z3A.37 2527957 continue vitamin [id number] [facility] [address],[place] [address] 08/25/2025 16:48:00 08/25/2025 17:20:42 Gestational diabetes mellitus 60589236 O24.419 75120318 [id number] Shawn Bradley MD [facility] [address],[place] [address] 09/13/2025 15:30:32 09/13/2025 20:43:16 [id number] Shawn Bradley MD [facility] [address],[place] [address] 09/14/2025 12:04:57 09/15/2025 08:16:47 Anxiety 97970761 F41.9 39268 this patient presents for severe anxiety. She [...] was given precaution s and instructio ns. [id number] Shawn Bradley MD [facility] [address],[place] [address] 09/20/2025 14:55:10 09/20/2025 15:43:32 Hypertension AND/OR vomiting complicating childbirth AND/OR puerperium 591672486 O13.9 06352788 Anxiety 48413534 F41.9 46231 25-year-ol d female with severe anxiety and [...] 20 minutes on her care in total. [id number] Shawn Bradley MD [facility] [address],[facility] [place] [address] 09/29/2025 13:51:09 09/29/2025 14:54:36 care status 391710609 Z39.2 61168 This patient is a 25-year-ol d female [...] Her bleeding Has resolved at this time. [id number] Anju Mcnamara CNM [facility] [address],[place] [address] 10/15/2025 11:10:29 10/15/2025 12:43:01 Discharge from breast 044991333 N64.52 55810 left breast culture obtained Anxiety 22764327 F41.9 40387 continue medsplan t bishop so for further management Hypertensive disorder 38 826606 I10 51308118 ok to discontinu e procardia, take bp at home call with a log monitor symptoms Health Concerns Section Related Observation LastModified by Organization Detai ls LastModified Time None Recorded Concern Status LastModified by Organization Details LastModified Time None Recorded Advance Directives Directive None Recorded Payers Insurance Date Sequence Insurance Name Policy Number Policy Roberts Covered Member ID Roberts Member ID Guarantor Name 10/20/2025 1 [facility] (MEDICAID HMO) [id number] Yuni Mejia [id number] Yuni Mejia Notes Date Note Type Note [...] instructions. Shawn Bradley MD [address], [place], [address], [facility] 09/14/2025 20:12:48 09/20/2025 text/html 25-year-old female with severe anxiety [...] total. Shawn Bradley MD [address], [place], [address], [facility] 09/20/2025 15:37:04 09/29/2025 text/html This patient is a 25-year-old [...] time. Shawn Bradley MD [address], [place], [address], [facility] 09/29/2025 14:52:53 10/15/2025 text/html ROS as noted in the HPI questions about delivery, anemia per pcp, did not hemorrhage at deliverytold high blood pressure, kirk told her d/c procardia because she wasn't feeling well and bps low at homepulse low 40-70 depending on activity, no symptomsalso worried about left nipple dichargeanxiety still the same, meds she is on makes her feel awful Emmamick ramos, [facility] 10/15/2025 12:51:31 OBGyn Episode Ob Episode Information Episode Created Date Number of Fetuses Patient Bloodtype Patient rh Status Prepregnancy Weight lbs Domestic Partner Domestic Partner Phone Father Name Supervising Floorperson Status 03/14/20 20 1 CLOSED Fetus Data [...] Domestic Partner Domestic Partner Phone Father Name Supervising Floorperson Status 07/05/20 21 1 CLOSED Fetus Data First Name Last Name Admitted to NICU Weight (g) Sex Living Outcome Pediatric Complications Fetus ID Race Codes Race Delivery Type , Spontane ous 71252 Jun Calculation Initial Jun Date Initial Exam [...] Domestic Partner Domestic Partner Phone Father Name Supervising Floorperson Status 09/13/20 21 1 B Positive 103 diontre silva CLOSED Fetus Data First Name Last Name Admitted to NICU Weight (g) Sex Living Outcome Pediatric Complications Fetus ID Race Codes Race Delivery Type 3316.89 15 F true Full Term terminal meconium 52987 Vaginal Delivery Problems Problem Notes EIF in [place] noted03/05 PIH WNL, UC WNL Problem Name Start Date End Date Resolution Snomed Code Not e Spinal muscular atrophy 5962919 Carrier - Not i n contact with FOB. Past history of gestational diabetes mellitus 262859716 Early 1 hr GTT @ 20wks 11/03 APPT Hyperemesis 143662012 phenerga n now prn Anxiety in 945782367 11707 will continue to monitor Jun Calculation Initial [...] Date Ultra Sound Latest Days Gestation 0 [email or web address] 09/14/2021 03/16/20 22 0 Pre-fabiola Flowsheet Flowsheet [...] Weight in lbs Pre/Post Dialysis Refused Weight 110.568218779016 BP Diastolic BP Location Tested BP Systolic [...] Weight in lbs Pre/Post Dialysis Refused Weight 119.831363432796 BP Diastolic BP Location Tested BP Systolic [...] Weight in lbs Pre/Post Dialysis Refused Weight 120.213837592465 BP Diastolic BP Location Tested BP Systolic [...] Weight in lbs Pre/Post Dialysis Refused Weight 124.378183620251 BP Diastolic BP Location Tested BP Systolic [...] Weight in lbs Pre/Post Dialysis Refused Weight 137.633839565747 BP Diastolic BP Location Tested BP Systolic [...] Weight in lbs Pre/Post Dialysis Refused Weight 145.0433177055 BP Diastolic BP Location Tested BP Systolic [...] Weight in lbs Pre/Post Dialysis Refused Weight 152.647408623126 BP Diastolic BP Location Tested BP Systolic [...] Weight in lbs Pre/Post Dialysis Refused Weight 150.511760491228 BP Diastolic BP Location Tested BP Systolic [...] Weight in lbs Pre/Post Dialysis Refused Weight 157.292381282880 BP Diastolic BP Location Tested BP Systolic [...] Weight in lbs Pre/Post Dialysis Refused Weight 158.349068000473 BP Diastolic BP Location Tested BP Systolic [...] Weight in lbs Pre/Post Dialysis Refused Weight 163.340747396599 BP Diastolic BP Location Tested BP Systolic [...] Weight in lbs Pre/Post Dialysis Refused Weight 134.567434812648 BP Diastolic BP Location Tested BP Systolic [...] At Estimated Date of Delivery false Thalassemia (St Helenian, Norwegian, Mediterranean, Or Background): MCV < 80 false Neural Tube Defect (Meningom yelocele, Spina Bifida, Or Anencephaly) false Congenital Heart Defect false Down Syndrome false Erick-Sachs (eg, Gnosticist, Cajun, Luxembourgish-Guamanian) f alse Lizzette Disease false Sickle Cell Disease Or Trait () false Hemophilia Or Other Blood Disorders false Muscular Dystrophy false Cystic Fibrosis false [place]'s Chorea false Intellectual Disability/Autism false If Yes, [...] Domestic Partner Domestic Partner Phone Father Name Supervising Floorperson Status 07/05/20 21 1 CLOSED Fetus Data First Name Last Name Admitted to NICU Weight (g) Sex Living Outcome Pediatric Complications Fetus ID Race Codes Race Delivery Type 3175.14 4 F Full Term 73770 Vaginal Delivery Jun Calculation Initial Jun Date [...] Domestic Partner Domestic Partner Phone Father Name Supervising Floorperson Status 11/01/19 24 1 B Positive 126 Edoja Wand CLOSED Fetus Data First Name Last Name Admitted to NICU Weight (g) Sex Living Outcome Pediatric Complications Fetus ID Race Codes Race Delivery Type 3401.94 M true Full Term 66496 Vaginal Delivery Problems Problem Notes gallbladder attack/pain - re ferral to Gen Surg Dr. Boles sent 11/08- pt never went because pain stopped Problem Name Start Date End Date Resolution Snomed Code Not e Anxiety 75507675 prozac Nausea 235182852 d/c zofran pump 11/08 per pt request hemorrhage 24413218 hx 2017 with d&c Jun Calculation Initial [...] Weight in lbs Pre/Post Dialysis Refused Weight 130.219770196227 BP Diastolic BP Location Tested BP Systolic [...] Weight in lbs Pre/Post Dialysis Refused Weight 136.827886490622 BP Diastolic BP Location Tested BP Systolic [...] Weight in lbs Pre/Post Dialysis Refused Weight 144.331338393416 BP Diastolic BP Location Tested BP Systolic [...] Weight in lbs Pre/Post Dialysis Refused Weight 154.142651610722 BP Diastolic BP Location Tested BP Systolic [...] Weight in lbs Pre/Post Dialysis Refused Weight 157.758310499507 BP Diastolic BP Location Tested BP Systolic [...] Domestic Partner Domestic Partner Phone Father Name Supervising Floorperson Status 03/02/20 25 1 B Positive 164 CLOSED Fetus Data First Name Last Name Admitted to NICU Weight (g) Sex Living Outcome Pediatric Complications Fetus ID Race Codes Race Delivery Type Gladis false 4025.62 9 F true Full Term 47635 Vaginal Delivery Problems Problem Notes SDH form completed 5GI consult Tachycardia Holter monitor 72 order- pt sent back on 03-27-25 Cardiology referral faxed per Dr Martínez office calling pt 04/21 to schedule consult scheduled 05/11 11:15AM Problem Name Start Date End Date Resolution Snomed Code Not e Uncomplicated moderate persistent asthma 03/02/2025 950999430 albuterol prn Abnormal placenta affecting management of mother 05/04/2025 92335635 [facility] serial grow th us Iron deficiency anemia 05/25/2025 32811216 [facility] MFM tx [place] 200mg x1 HGB 10.6 Nausea and vomiting 03/02/2025 16866154 Anxiety 03/02/2025 93123421 sertralin e started 03/02/25 changed to prozac 10 on Gestational diabetes mellitus 07/08/2025 97845264 checking bs QID - ruled in GDM Referral faxed to [facility] 07/07 Frequent headache 05/03/2025 666587861 [place] to [facility] 05/21, discharge 05/23 MF referral faxed 05/24 SS Neurology consult pending per KAJAL Pittman [facility]- Neuro [facility] unable to see pt due to insurance 05/25[facility] 07/05/25 Level US & Consult (see MFM consult zayas recommendations ) regimen prn Imitrex 50mg for acute migraine, vitamin B2 (Riboflavin) 400mg, Coenzyme q10 300mg and magnesium oxide 200 to 600mg daily. minimize use of Excedrin or Tylenol to no more than 2-3 times a week. 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/2025 3156904 32wk growth us Jun Calculation Initial Jun [...] Weight in lbs Pre/Post Dialysis Refused Weight 158.854495364561 BP Diastolic BP Location Tested BP Systolic [...] Weight in lbs Pre/Post Dialysis Refused Weight 158.443565223706 BP Diastolic BP Location Tested BP Systolic [...] Weight in lbs Pre/Post Dialysis Refused Weight 162.661973438032 BP Diastolic BP Location Tested BP Systolic BP Type 78 123 Fetus Heart Rate Present A 148 Fetus Movement A Yes Comments Patient is having having ronny n, cramping and vaginal discharge. went to ed exam done cultures and rx sent, ?FM, await campus monitor results rfilled zofran, precautions and education [...] Type Weight in lbs Pre/Post Dialysis Refused 168.335472690390 BP Diastolic BP Location Tested BP Systolic [...] Type Weight in lbs Pre/Post Dialysis Refused 169.194327312593 BP Diastolic BP Location Tested BP Systolic [...] Weight in lbs Pre/Post Dialysis Refused Weight 175.868225584374 BP Diastolic BP Location Tested BP Systolic [...] Weight in lbs Pre/Post Dialysis Refused Weight 182.729588839935 BP Diastolic BP Location Tested BP Systolic [...] Weight in lbs Pre/Post Dialysis Refused Weight 181.306073472235 BP Diastolic BP Location Tested BP Systolic BP Type 73 L arm 131 sitting Fetus Heart Rate Present Fetus Movement A Yes Comments viral URI testied neg at urg ent care, nausea resolved, efw 68%, +FM plan education and precautions f/u 2 weeks diagnosed GDM, plan performance tester, gave list reviewed protein vs carb Flowsheet Date 07/21/2025 Gibson Score Blood Edema Fundus Height Fundus Units Glucose Ketones Leukocytes Nitrite Labor Signs Protein Cervic Dilation Cervic Effacement Cervic Station Type Weight in lbs Pre/Post Dialysis Refused Weight 181.970853202144 BP Diastolic BP Location Tested BP Systolic BP Type 78 L arm 127 sitting Fetus Heart Rate Present A 150 Fetus Movement A Yes Comments rpt urine culture +FM review ed blood sugars, meets with performance tester today, precautions and education f/u 2 [...] Weight in lbs Pre/Post Dialysis Refused Weight 181.827714706540 BP Diastolic BP Location Tested BP Systolic [...] Weight in lbs Pre/Post Dialysis Refused Weight 183.291459430166 BP Diastolic BP Location Tested BP Systolic [...] Type Weight in lbs Pre/Post Dialysis Refused 184.167749462103 BP Diastolic BP Location Tested BP Systolic [...] Type Weight in lbs Pre/Post Dialysis Refused 184.755467370171 BP Diastolic BP Location Tested BP Systolic [...] Type Weight in lbs Pre/Post Dialysis Refused 184.727999201189 BP Diastolic BP Location Tested BP Systolic [...] Weight in lbs Pre/Post Dialysis Refused Weight 184.231644501958 BP Diastolic BP Location Tested BP Systolic [...] Weight in lbs Pre/Post Dialysis Refused Weight 164.828425645986 BP Diastolic BP Location Tested BP Systolic [...]
--- OUTSIDE RECORDS SUMMARY | 2025-10-27 12:16 | XMS_ITS ---
Author Organization Unknown Address [address] [place] [address] [phone] Phone Care Team Providers Care Nuclear Design Engineer Name Role Phone RUFUS SEGAL Attending Unavailable [...] em Smoking History Never smoker (Never Smoked) 303278087 SNOMED CT Sex Female Assessment You had [...] 6002 SNOMED-CT UNSPECIFIED ABDOMINAL PAIN active 215 96336 SNOMED-CT Allergies and Adverse Reactions Allergy Substance Reaction Severity Start Date Concern Status Co de Code System AMOXICILLIN Active 723 RxNorm TERBUTALINE Active 69928 RxNorm Plan of Treatment Stress Test Treadmill 01/21/2025 Fuel Cell Systems Engineer Consult 04/27/2025 Encounters Encounter Diagnosis Start Date [...]
[2025-10-27 12:34] VITALS: BP 130/90; PULSE 60; RESP 16; TEMP 36.8; O2SAT 98
[2025-10-27 12:54] LABS: Influenza A QL RT-PCR Negative (Negative); Influenza B QL RT-PCR Negative (Negative); RSV RNA, RT-PCR Negative (Negative); SARS-CoV-2 RNA PCR Negative (Negative)
--- NOTE | 2025-10-27 12:58 | PC.NURSE ---
Patient refused pain medication, EDP aware.
[2025-10-27] MEDS: MAGNESIUM OXIDE 200 MG TABLET PO (13:04)
--- NOTE | 2025-10-27 13:07 | ECG_ITS ---
Test Date: 2025-10-27 13:23:54 Measurements Intervals [place] Rate: 43 P: 58 MS: 133 QRS: 24 QRSD: 93 T: 23 QT: 466 QTc: 396 Interpretive Statements SINUS BRADYCARDIA BASELINE ARTIFACT- I, II, III, AVR, AVL, AVF, V1-V6 ABNORMAL ECG Compared to ECG 04/16/2025 09:37:25 HEART RATE HAS DECREASED Electronically Signed On 10-27-2025 16:12:23 FACULTY I ON CALL MEDICAL ASSISTANT by Vinicio Martínez D.O.
[2025-10-27 13:19] LABS: Hematocrit 40.8 % (37.0-47.0); Hemoglobin 12.7 g/dL (12.0-15.0); Immature Granulocyte Percent A 0.4 % (0-0.5); Lymphocytes Absolute Auto 1.87 K/mm3 (0.9-3.2); Mean Corpuscular HGB Conc 31.1 g/dl (32-36); Mean Corpuscular Hemoglobin 25.0 pg (26-34); Mean Corpuscular Volume 80.5 fl (80-100); Nucleated Red Blood Cells Absolute Auto 0.000 K/mm3 (0.0-0.012); Nucleated Red Blood Cells Perc 0.0 % (0.0-0.2); Platelet Count Result 292 k/mm3 (150-375); Red Blood Count 5.07 M/mm3 (4.2-5.4); White Blood Count 5.7 K/mm3 (4.5-10.0)
[2025-10-27 13:32] LABS: INR 1.0; Prothrombin Time 13.3 Seconds (11.1-14.7)
[2025-10-27 13:33] LABS: Partial Thromboplastin Time 38.4 Seconds (22.3-36.8)
[2025-10-27 13:42] LABS: Anion Gap 7 mmol/L (4-12); Blood Urea Nitrogen 13 mg/dL (7-17); Calcium 9.3 mg/dL (8.4-10.2); Carbon Dioxide 27 mmol/L (22-30); Chloride 107 mmol/L (98-107); Estimated CRCL calculation 105 ml/min; Estimated Glomerular Filt Rate > 60; Glucose 93 mg/dL (65-110); Potassium 4.0 mmol/L (3.4-5.0); Sodium 141 mmol/L (137-145)
[2025-10-27] MEDS: BENZONATATE 100 MG CAPSULE PO (13:54)
[2025-10-27 14:27] LABS: SPREG INTERNAL CONTROL Positive; Serum Qual hCG Negative
[2025-10-27 15:29] VITALS: BP 144/96; PULSE 66; RESP 17; O2SAT 99
== END 2025-10-27 15:59 | disposition home or self-care (01) ==
PROVIDERS: Emergency Provider Student in an Organized Health Care Education/Training Program
DX: R51.9 Headache, unspecified (principal); M54.2 Cervicalgia; B34.9 Viral infection, unspecified; M79.10 Myalgia, unspecified site; M25.519 Pain in unspecified shoulder; Z87.891 Personal history of nicotine dependence; F41.8 Other specified anxiety disorders; Z20.822 Contact with and (suspected) exposure to COVID-19
CPT/HCPCS: 36415; 71045; 71275; 80048; 84703; 85025; 85380; 85610; 85730; 87637; 93005; 99284; A9270; Q9967